=== PATIENT | female | born 1980 | race African-American/Black ===

== ENCOUNTER → 2017-04-08 16:12 | Outpatient (CLI) | payer MEDICARE, MEDICAID, SELFPAY | PROVIDERS: Visit Provider Nurse Practitioner Women's Health | DX: Z12.4 Encounter for screening for malignant neoplasm of cervix (principal) ==

== ENCOUNTER → 2017-05-02 12:30 | Outpatient (CLI) | payer MEDICARE, MEDICAID, SELFPAY ==
--- NOTE | 2017-05-02 12:32 | US_ITS ---
STUDY: ULTRASOUND OF THE FEMALE PELVIS REASON FOR EXAM: Female, 36 years old. Vaginal prolapse LMP: Unknown. TECHNIQUE: Transverse and longitudinal imaging of the pelvis was obtained transabdominally and transvaginally using real-time ultrasound. COMPARISON: None. FINDINGS: The uterus is retroverted and is in a midline position. The uterus measures 5.7 x 2.8 x 3.2 cm. Normal uterine cervix. The endometrium measures 5.2 mm in thickness, and is hyperechoic. There is no demonstrated endometrial mass. There is no demonstrated myometrial mass. I.U.D. - The patient does not have an I.U.D. The right ovary is visualized. The right ovary measures 2.3 x 1.1 x 1.2 cm. There is no right ovarian cyst or ovarian mass. There is no visualized right adnexal mass or complex lesion. There is normal arterial and normal venous vascularity. The left ovary is not visualized. There is no fluid in the cul-de-sac. No significant abnormalities are seen on limited visualization of the urinary bladder. US/Transvaginal Non- IMPRESSION: The uterus is retroverted. No abnormalities are seen in the uterus on ultrasound. The right ovary is normal in appearance. The left ovary was not visualized. Electronically Signed: Rani Sheppard MD at 14:41 EST Tel Direct: [phone], Service support ,
--- NOTE | 2017-05-02 12:32 | US_ITS ---
STUDY: ULTRASOUND OF THE FEMALE PELVIS REASON FOR EXAM: Female, 36 years old. Vaginal prolapse LMP: Unknown. TECHNIQUE: Transverse and longitudinal imaging of the pelvis was obtained transabdominally and transvaginally using real-time ultrasound. COMPARISON: None. FINDINGS: The uterus is retroverted and is in a midline position. The uterus measures 5.7 x 2.8 x 3.2 cm. Normal uterine cervix. The endometrium measures 5.2 mm in thickness, and is hyperechoic. There is no demonstrated endometrial mass. There is no demonstrated myometrial mass. I.U.D. - The patient does not have an I.U.D. The right ovary is visualized. The right ovary measures 2.3 x 1.1 x 1.2 cm. There is no right ovarian cyst or ovarian mass. There is no visualized right adnexal mass or complex lesion. There is normal arterial and normal venous vascularity. The left ovary is not visualized. There is no fluid in the cul-de-sac. No significant abnormalities are seen on limited visualization of the urinary bladder. US/Pelvic (Non ) IMPRESSION: The uterus is retroverted. No abnormalities are seen in the uterus on ultrasound. The right ovary is normal in appearance. The left ovary was not visualized. Electronically Signed: Rani Sheppard MD at 14:41 EST Tel Direct: [phone], Service support ,
== END ==
PROVIDERS: Visit Provider Nurse Practitioner Women's Health
DX: N81.2 Incomplete uterovaginal prolapse (principal)
CPT/HCPCS: 76830; 76856

== ENCOUNTER 2019-05-10 18:56 | Emergency (ER) | payer MEDICARE, MEDICAID, SELFPAY ==
[2019-04-21 16:16] VITALS: BMI 57.6
[2019-05-10 18:57] VITALS: BP 160/97; PULSE 67; RESP 15; TEMP 37; O2SAT 99; BMI 48.2
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
[2019-05-10] MEDS: Acetaminophen 325 MG Tablet 650 MG PO (19:35)
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
== END 2019-05-10 21:17 | disposition home or self-care (01) ==
PROVIDERS: Emergency Provider Emergency Medicine; PCP Internal Medicine
DX: S00.83XA Contusion of other part of head, initial encounter (principal); S40.022A Contusion of left upper arm, initial encounter; S40.021A Contusion of right upper arm, initial encounter; Y04.0XXA Assault by unarmed brawl or fight, initial encounter; Y93.89 Activity, other specified; Y92.199 Unspecified place in other specified residential institution as the place of occurrence of the external cause; J44.9 Chronic obstructive pulmonary disease, unspecified; E03.9 Hypothyroidism, unspecified; Q87.11 Prader-Willi syndrome; E66.01 Morbid (severe) obesity due to excess calories; Z68.41 Body mass index [BMI] 40.0-44.9, adult
CPT/HCPCS: 70110; 99283; A4216

== ENCOUNTER 2020-08-08 11:41 | Emergency (ER) | payer MEDICARE, MEDICAID, SELFPAY ==
[2020-08-08 11:42] VITALS: BP 163/82; PULSE 62; RESP 18; TEMP 36.6; O2SAT 99; BMI 49.6
--- NOTE | 2020-08-08 12:01 | RAD_ITS ---
STUDY: X-RAY - PELVIS REASON FOR EXAM: Female, 40 years old. pain TECHNIQUE: One view of the pelvis was obtained. COMPARISON: None. FINDINGS: There is a non-specific bowel gas pattern. Normal visualized soft tissue structures. Normal bilateral iliac wings, sacroiliac joints and visualized sacrum. Normal visualized bilateral superior and inferior pubic rami. Normal pubic symphysis. Normal ischial tuberosities. Normal visualized right femoral head. Normal right acetabulum. Normal right hip joint. Normal visualized left femoral head. Normal left acetabulum. Normal left hip joint. RAD/Pelvis 1 or 2 Views IMPRESSION: Normal x-ray examination of the pelvis. Electronically Signed: Juan Pablo Wallace MD at 13:15 EDT , Service support ,
--- NOTE | 2020-08-08 12:01 | VDLE_ITS ---
Reason For Study: pain RIGHT CFV is compressible, spontaneous, phasic, competent and demonstrates normal augmentation. FV is compressible, spontaneous, phasic, competent and demonstrates normal augmentation. POP V is compressible, spontaneous, phasic, competent and demonstrates normal augmentation. T/P Trunk is compressible. PTV is compressible. RT PerV is compressible. GSV is dilated and noncompressible. No evtension into the CFV. SVT is up to the S-F Juction. SVT appears to be loosley attached. Varicose veins in the thigh are dilated and noncompressible. Procedure This is a venous duplex using B-mode, color flow and spectral Doppler. Exam performed portable in ED. The exam was abbreviated due to the COVID 19 protocol. The exam was diagnostic. A preliminary report was called and/or faxed to Dr. Rossi. VL/Venous Duplex US, Unilateral Interpretation Summary There is no evidence of right lower extremity deep vein thrombosis. Superficial thrombophlebitis right great saphenous vein with visible thrombus loosely attached close to the saphenofemoral junction. Superficial thrombophlebitis involving varicosities of the right thigh. COVID-19 protocol utilized Ordering Physician: Tori Rossi Performed By: Lauro Roberts RVAl
--- NOTE | 2020-08-08 12:01 | ED.VIS.LOWEX ---
HPI History of Present Illness Chief Complaint: Lower Extremity Injury Detail of Chief Complaint: Pain to right upper leg that she noticed this morning Informant: patient Narrative Narrative: Patient denies any injury to her right leg. She woke up with pain in it this morning. She denies any chest pain or shortness of breath. She denies any trauma. She has been bearing weight on it. No history of PE or DVT. Staff from [facility] state that they are concerned about a blood clot. [facility] Medical History (Updated 08/08/20 @ 13:[address] Tori Rossi, DO) Prader-Willi syndrome Home Medications ammonium lactate 1 applicatio TOPICAL DAILY 10/26/13 [History Last Taken 09/29/14] calcium carbonate-vitamin D3 1 ea PO BID 10/26/13 [History Last Taken 09/29/14] multivitamin,da-lkwa-ohzefzrh 1 tab PO DAILY 10/26/13 [History Last Taken 09/29/14] omega-3 fatty acids-fish oil 1 ea PO DAILY 10/26/13 [History Last Taken 09/29/14] budesonide-formoterol 2 puff INHALATION BID 09/30/14 [History Last Taken 09/29/14] epinephrine 0.3 mg IM X1 PRN 06/01/16 [History Last Taken Unknown] nystatin 1 applic TOPICAL BID 06/01/16 [History Last Taken Unknown] clotrimazole 1 % topical cream 1 applic TOPICAL BID 04/08/17 [History Last Taken Unknown] fluticasone propionate 50 mcg/actuation nasal spray,suspension 50 mcg INTRANASAL ONCE 04/08/17 [History Last Taken Unknown] levothyroxine 50 mcg tablet 100 mcg PO DAILY tab 04/21/19 [History Last Taken Unknown] acetaminophen 500 - 1,000 mg PO Q6H PRN PRN #30 tab 05/10/19 [Rx Last Taken Unknown] desogestrel 0.15 mg-ethinyl estradiol 0.03 mg tablet 1 tab PO QDAY #84 tab 05/11/20 [Rx Last Taken Unknown] apixaban [Eliquis DVT-PE Treat 30D Start] 5 mg PO BID #74 tab 08/08/20 [Rx Last Taken Unknown] Allergy/AdvReac Type Severity Reaction Status Date / Time phenytoin sodium Allergy Unknown Verified 08/08/20 11:47 [From Dilantin] phenytoin sodium extended Allergy Unknown Verified 08/08/20 11:47 [From Dilantin] venom-honey bee Allergy Unknown Verified 08/08/20 11:47 [bee venom (honey bee)] Family History Grandmother Diabetes Social History (Updated 05/11/20 @ 15:08 by Cecilia Fontenot SENIOR AUDIT MANAGER, SENIOR AUDIT MANAGER-C) Smoking Status: Never smoker alcohol intake: never substance use type: does not use caffeine: Yes frequency: daily seatbelt use: always do you feel safe at home: Yes additional social history: Louis Gimenez ROS ROS ED Constitutional Constitutional ED: Reports systems reviewed and no addt'l complaints, except as documented; Denies body ache(s), change in weight or chills Eyes Eyes: Denies acute decrease in peripheral vision, change in vision, double vision or loss of vision ENT ENT ED: Reports none; Denies ear pain, lip swelling, loss taste/smell, neck pain, otalgia or sore throat Cardiovascular Cardiovascular: Reports none; Denies abdominal pain, chest pain with activity, leg edema, lightheadedness, palpitations, rapid heart rate or syncope Respiratory/Chest Respiratory/Chest: Reports none; Denies change in mental status, dry cough, dyspnea, hemoptysis, shortness of breath at rest or shortness of breath with exertion Gastrointestinal Gastrointestinal: Reports none; Denies abdominal pain, change in stool character, diarrhea, hematemesis, hematochezia, melena, rectal bleeding or vomiting Genitourinary Genitourinary ED: Reports none; Denies abdominal discomfort, anuria, dysuria, genital pain or polyuria Musculoskeletal Musculoskeletal: Reports none and other Details: Right leg pain ; Denies arthralgias, back pain, difficulty walking, extremity pain, muscle weakness or myalgias Integumentary Reports none; Denies abscess or rash Neurologic Neurologic: Reports none; Denies abnormal gait, confusion, focal weakness, frequent falls, headache(s), loss of vision, numbness, paresthesias, radicular pain, vertigo or weakness Psychiatric Psychiatric: Reports systems reviewed and no addt'l complaints, except as documented and none; Denies behavioral changes, confusion, difficulty concentrating, hallucinations, suicidal ideation, tactile hallucinations or visual hallucinations Endocrine Endocrinology: Denies none, cold intolerance, excessive sweating, fatigue or heat intolerance Hematologic/Lymphatic Hematologic/Lymphatic: Reports none; Denies anemia, easy bleeding or easy bruising Allergic/Immunologic Allergic/Immunologic ED: Denies as per HPI, none, lip swelling, mouth swelling, throat swelling, tongue swelling or hives EXAM Physical Exam Const Vital Signs: 08/08/20 11:42 Temperature 97.9 F Temperature Source Temporal Pulse Rate 62 Respiratory Rate 18 Blood Pressure 163/82 H Blood Pressure Mean 109 Pulse Ox 99 Oxygen Delivery Method Room Air Positive well nourished and well developed General Appearance ED: well developed and NAD HEENT Reports TM's clear and moist mucous membranes normocephalic and atraumatic; Negative for trauma or tenderness Tympanic Membrane ED: Yes TM's clear Eyes PERRL and EOMs intact bilaterally General Eye ED: Negative for pale conjunctiva or scleral icterus Neck no lymphadenopathy, supple and no JVD General: Negative for tenderness Chest Wall inspection of chest normal and palpation of chest normal Chest: Negative for tenderness Resp normal respiratory effort and clear to auscultation bilaterally Effort and Inspection: Negative for respiratory distress or pain with movement Auscultation: Negative for rhonchi, wheezes or diminished lung sounds Cardio regular rate, regular rhythm, S1 normal heart sound, S2 normal heart sound and no murmurs Peripheral Pulses: pulses 2+ throughout GI normal to inspection, nondistended, normoactive bowel sounds, soft to palpation, non-tender, non-distended and no masses Back/Spine no CVA tenderness and no thoracic nor lumbar tenderness Extremity normal to inspection Extremity Narrative: Right leg-patient has tenderness palpation right medial proximal thigh near the inguinal ligament. No masses palpated. There is no erythema or warmth or abscesses noted. Neurovascularly intact. General Extremety ED: Negative for edema General Extremity: Negative for edema Neuro oriented x3, CN's II-XII intact bilaterally, no sensory deficits noted and gait normal Sensorium / Orientation: awake, alert, oriented to person, oriented to place and oriented to time Motor Exam: strength 5/5 throughout and strength abnormal Psych mental status grossly normal Skin no rashes or lesions noted and no wounds MDM MDM MDM Narrative Medical decision making narrative: Patient noted to have superficial clot that is dangling and getting ready to enter the deep venous system of the femoral vein. I discussed case with Dr. Richey who is vascular surgeon on-call. Also discussed case with patient's primary care physician Dr. Pérez. It was recommended that patient be started on anticoagulation for 6 to 8 weeks and follow-up with vascular surgeon. Patient was started on Eliquis. Discharge Plan Triage Chief Complaint: Lower Extremity Injury ED Provider: Tori Rossi Dx/Rx/DC Orders Clinical Impression: Superficial thrombophlebitis Prescriptions: New Eliquis DVT-PE Treat 30D Start 5 mg (74 tabs) tablets,dose pack 5 mg PO BID Qty: 74 RF: 0 No Action fluticasone propionate 50 mcg/actuation spray,suspension 50 mcg INTRANASAL ONCE RF: 0 clotrimazole 1 % cream 1 applic TOPICAL BID RF: 0 desogestrel-ethinyl estradiol [Apri] 0.15-0.03 mg tablet 1 tab PO QDAY Qty: 84 RF: 4 ammonium lactate 140 GM cream 1 applicatio TOPICAL DAILY RF: 0 multivitamin,jf-xccy-mkrtiyli 1 TABLET tablet 1 tab PO DAILY RF: 0 omega-3 fatty acids-fish oil 1 EACH capsule 1 ea PO DAILY RF: 0 calcium carbonate-vitamin D3 1 EACH tablet 1 ea PO BID RF: 0 levothyroxine 50 mcg tablet 100 mcg PO DAILY RF: 0 budesonide-formoterol 1 INHALER inhaler 2 puff INHALATION BID RF: 0 nystatin 1 APPLIC bottle 1 applic TOPICAL BID RF: 0 epinephrine 0.3 MG syringe 0.3 mg IM X1 PRN (Reason: Anaphylaxis) RF: 0 acetaminophen 500 MG tablet 500 - 1,000 mg PO Q6H PRN PRN (Reason: Pain Score 4-10/10) Qty: 30 RF: 0 Primary Care Provider: Marilee Pérez Referrals: Daniel Richey MD [STAFF PHYSICIAN] - (see Dr. Winkler in 6-8 weeks ) Marilee Pérez MD [Primary Care Provider] - Disposition Disposition: Home, self care
[2020-08-08 13:50] VITALS: BP 129/74; PULSE 64; RESP 15; O2SAT 96
[2020-08-08] MEDS: APIXABAN 5 MG TABLET 10 MG PO (13:50)
== END 2020-08-08 13:58 | disposition home or self-care (01) ==
PROVIDERS: Emergency Provider Emergency Medicine; PCP Internal Medicine
DX: I80.01 Phlebitis and thrombophlebitis of superficial vessels of right lower extremity (principal)
CPT/HCPCS: 36415; 72170; 93971; 99284

== ENCOUNTER → 2020-08-21 13:57 | Outpatient (CLI) | payer MEDICARE, MEDICAID, SELFPAY ==
[2020-08-08 11:42] VITALS: BMI 49.6
--- NOTE | 2020-08-21 14:01 | ECHOD_ITS ---
Reason For Study: Prader Willi Syndrome Procedure This was a 2D Doppler, Color Flow transthoracic echocardiogram. Exam performed in department. Left Ventricle Normal LV size. Left ventricular systolic function is normal. The estimated ejection fraction is 65 %. Stage 1 diastolic dysfunction. No regional wall motion abnormalities noted. Right Ventricle Normal RV size. Normal systolic function. Atria Normal left atrium. Normal right atrium. Mitral Valve Normal mitral valve. Tricuspid Valve Normal tricuspid valve. Mild (1+) tricuspid valve insufficiency. Pulmonary artery systolic pressure is 54 mmHg. Aortic Valve Normal aortic valve. Trisinus/trileaflet aortic valve. Pulmonic Valve Normal pulmonic valve. Great Vessels Normal aortic root. The pulmonary artery is normal size. Inferior vena cava collapse with respiration. Pericardium/Pleural No pericardial effusion. MMode/2D Measurements & Calculations LVIDd: 5.1 cm IVSd: 0.77 cm Ao root diam: 2.0 cm LVIDs: 3.2 cm LVPWd: 0.77 cm RVDd: 4.3 cm FS: 37.4 % LAV(MOD-bp): 48.2 ml LVAd ap4: 27.8 cm2 SV(MOD-sp4): 50.3 ml LAV(MOD-bp) Indexed: 21.0 ml/m2 LVLd ap4: 7.5 cm LAV(MOD-sp2): 50.6 ml EDV(MOD-sp4): 87.0 ml LAV(MOD-sp4): 43.8 ml EDV(sp4-el): 88.0 ml LVAs ap4: 16.3 cm2 LVLs ap4: 6.2 cm ESV(MOD-sp4): 36.7 ml ESV(sp4-el): 36.1 ml EF(MOD-sp4): 57.8 % EF(sp4-el): 59.0 % SV(sp4-el): 51.9 ml LA A4 area: 17.2 cm2 LA dimension(2D): 3.1 cm RA A4 area: 16.8 cm2 Doppler Measurements & Calculations MV E max abdoul: 66.9 cm/sec Lat Peak E' Abdoul: 12.8 cm/sec Med Peak E' Abdoul: 8.9 cm/sec MV A max abdoul: 77.6 cm/sec E/E' lat: 5.2 E/E' med: 7.5 MV E/A: 0.86 LV V1 max: 133.2 cm/sec PA V2 max: 120.0 cm/sec TR max abdoul: 351.2 cm/sec LV V1 max P.1 mmHg TR max P.3 mmHg ECHO/Echo Complete Interpretation Summary Normal LV size. Left ventricular systolic function is normal. The estimated ejection fraction is 65 %. Stage 1 diastolic dysfunction. Pulmonary artery systolic pressure is 54 mmHg. Ordering Physician: JOE HAMEED Referring Physician: Marilee Pérez Performed By: Aaliyah Dickinson, MIYA, RVT
== END ==
PROVIDERS: PCP Internal Medicine
DX: R01.1 Cardiac murmur, unspecified (principal); G47.33 Obstructive sleep apnea (adult) (pediatric); Z87.11 Personal history of peptic ulcer disease; E87.70 Fluid overload, unspecified; E03.9 Hypothyroidism, unspecified; E66.01 Morbid (severe) obesity due to excess calories
CPT/HCPCS: 93306

== ENCOUNTER 2021-05-22 16:40 | Outpatient (CLI) | payer MEDICARE, MEDICAID, SELFPAY ==
[2021-05-29 13:59] LABS: HPV APTIMA, High Risk Negative (Negative)
== END 2021-05-22 23:59 | disposition home or self-care (01) ==
LOC: LABSPEC 16:43
PROVIDERS: PCP Internal Medicine; Visit Provider Nurse Practitioner Women's Health
DX: Z12.4 Encounter for screening for malignant neoplasm of cervix (principal)
CPT/HCPCS: 87624; 88175; G0145

== ENCOUNTER → 2022-06-18 | Outpatient (CLI) | payer MEDICARE, MEDICAID, SELFPAY ==
--- NOTE | 2022-06-18 12:18 | BI_ITS ---
MAMMOGRAPHY - BILATERAL SCREENING 3-D TOMOSYNTHESIS REASON FOR EXAM: Female, 41 years old. Routine screening PERTINENT HISTORY: No significant family history. TECHNIQUE: 2-D mammograms and 3-D Tomosynthesis of the breast (s) were performed. CAD was performed. COMPARISON: None. Baseline examination. FINDINGS: The breast composition is almost entirely fat. Scattered benign calcifications are seen. No dense spiculated masses or suspicious microcalcifications are identified. No architectural distortion is identified. There is no skin thickening or retraction. BI/SCRN MAMM (CAD)W/ELIZABETH BILAT IMPRESSION: No mammographic signs of malignancy. Routine yearly mammograms recommended. ASSESSMENT CATEGORY: BIRADS Category 1: Negative. A letter regarding these results will be sent to the patient by the facility within 30 days. FOLLOW UP RECOMMENDATION: Yearly follow up mammogram recommended. (A) Approximately 10% of breast cancers are not detected by mammography. A normal mammogram should not delay biopsy of a clinically suspicious abnormality. Electronically Signed: Juan Pablo Wallace MD at 13:48 EDT ,
== END | disposition home or self-care (01) ==
PROVIDERS: PCP Internal Medicine; Referring Provider Nurse Practitioner Women's Health; Visit Provider Nurse Practitioner Women's Health
DX: Z12.31 Encounter for screening mammogram for malignant neoplasm of breast (principal)
CPT/HCPCS: 77063; 77067

== ENCOUNTER → 2023-07-04 | Outpatient (CLI) | payer MEDICARE, MEDICAID, SELFPAY ==
--- NOTE | 2023-07-04 10:19 | BI_ITS ---
MAMMOGRAPHY - BILATERAL SCREENING REASON FOR EXAM: Female, 43 years old. Routine annual screening examination. PERTINENT HISTORY: Non-contributory. TECHNIQUE: Digital bilateral breast elizabeth (3D mammographic acquisition) in the CC and MLO projections. 2-D mediolateral oblique (MLO) and craniocaudad (CC) views of both breasts were obtained. CAD: Full Field Digital Mammography with Computer Added Detection was performed. COMPARISON: Comparison is made with prior study June 18, 2022. FINDINGS: Breast Composition: The breasts are almost entirely fatty. There are no dominant masses or suspicious calcifications. Stable small benign-appearing bilateral axillary lymph nodes. Stable 2 mm well-defined nodule in the lateral retroareolar region of the left breast suggestive of either a small cyst or small lymph node. Stable 3 mm well-defined nodule in the upper anterior lateral aspect of the right breast. No other significant abnormalities are identified. There has been no significant change since the prior study. BI/SCRN MAMM (CAD)W/ELIZABETH BILAT IMPRESSION: Stable bilateral screening mammogram. Yearly follow-up mammogram recommended. (A) ASSESSMENT CATEGORY: BIRADS Category 2: Benign. A letter regarding these results will be sent to the patient by the facility within 30 days. Approximately 10% of breast cancers are not detected by mammography. A normal mammogram should not delay biopsy of a clinically suspicious abnormality. [id number] Electronically Signed: Daniel Boykin MD at 11:57 EDT ,
== END | disposition home or self-care (01) ==
LOC: OPBI 10:17
PROVIDERS: PCP Internal Medicine; Referring Provider Nurse Practitioner Women's Health; Visit Provider Nurse Practitioner Women's Health
DX: Z12.31 Encounter for screening mammogram for malignant neoplasm of breast (principal)
CPT/HCPCS: 77063; 77067

== ENCOUNTER → 2023-10-25 | Outpatient (CLI) | payer MEDICARE, MEDICAID, SELFPAY ==
--- NOTE | 2023-10-25 10:25 | US_ITS ---
INDICATION: on OCP with irregular bleeding EXAMINATION: Ultrasound US Pelvis Non OB Limited With Transvaginal Imaging TECHNIQUE: Transabdominal pelvic ultrasound was performed. Grayscale, spectral waveform, and color flow Doppler evaluation of the adnexa. COMPARISON: FINDINGS: UTERUS: Retroverted. The uterus measures 5.1 x 2.5 x 2.6 cm. There is no uterine mass. The endometrial stripe measures 3.4 mm in AP diameter which is within normal limits. RIGHT OVARY: Nonvisualization. LEFT OVARY: Nonvisualization. FREE FLUID: None. The urinary bladder is distended with a volume of 422 cc. US/Pelvic w/ Transvaginal IMPRESSION: Retroverted uterus. Nonvisualization of the ovaries. Electronically Signed: Jose Roche DO at 20:12 EDT ,
== END | disposition home or self-care (01) ==
LOC: US 10:23
PROVIDERS: PCP Internal Medicine; Referring Provider Nurse Practitioner Family; Visit Provider Nurse Practitioner Family
DX: N92.6 Irregular menstruation, unspecified (principal)
CPT/HCPCS: 76830; 76856

== ENCOUNTER 2023-10-30 19:30 | Emergency (ER) | payer MEDICARE, MEDICAID, SELFPAY ==
[2023-10-30 19:31] VITALS: BP 142/99; PULSE 60; RESP 16; TEMP 36.5; O2SAT 95; BMI 49.5
[2023-10-30 21:31] VITALS: RESP 18
--- NOTE | 2023-10-30 22:46 | EDS_ITS ---
HPI History of Present Illness Chief Complaint: Cellulitis Informant: patient and other (halfway staff) Narrative Narrative: 43-year-old female history of chronic lymphedema presenting to the emergency room with increased swelling of the lower extremities and redness. This was noted this evening at softball practice. She does take Lasix every other day 20 mg and is on supplemental potassium. No reported fevers. No significant shortness of breath or cough. No history of CHF. It was noted that during the softball game she was complaining of pain in the lower extremities right greater than left. They noticed that the legs were more swollen than they have been and that there is redness around both ankles. [facility] Medical History (Updated 10/30/23 @ 23:[address] Yeyo Lowery, DO) Prader-Willi syndrome Home Medications ?Medication ?Instructions ?Recorded ?Last Taken ?Type ammonium lactate 12 % topical cream 1 applicatio topical DAILY 10/26/13 09/29/14 History calcium carbonate 600 mg-vitamin 1 ea PO BID 10/26/13 09/29/14 History D3 10 mcg (400 unit) tablet multivitamin,[id number] 27 1 tab PO DAILY 10/26/13 09/29/14 History mg-0.4 mg tablet omega-3 fatty acids-fish oil 300 1 ea PO DAILY 10/26/13 09/29/14 History mg-500 mg capsule budesonide-formoterol HFA 160 2 puff inhalation BID 09/30/14 09/29/14 History mcg-4.5 mcg/actuation aerosol inhaler epinephrine 0.3 mg/0.3 mL 0.3 mg IM X1 PRN Anaphylaxis 06/01/16 Unknown History injection, auto-injector nystatin 100,000 unit/gram topical 1 applic topical BID 06/01/16 Unknown History powder clotrimazole 1 % topical cream 1 applic topical BID 04/08/17 Unknown History fluticasone propionate 50 50 mcg intranasal ONCE 04/08/17 Unknown History mcg/actuation nasal spray,suspension levothyroxine 50 mcg tablet 100 mcg PO DAILY 04/21/19 Unknown History acetaminophen 500 mg tablet 500 - 1,000 mg (1 - 2 x 500 mg) PO 05/10/19 Unknown Rx Q6H PRN PRN Pain Score 4-10/10 #30 tabs albuterol sulfate 90 mcg/actuation 2 puff inhalation Q6H PRN 05/22/21 Unknown History aerosol inhaler furosemide 20 mg tablet 20 mg PO Q OTHER DAY 05/22/21 Unknown History potassium chloride 10 mEq 10 meq PO .qod 05/22/21 Unknown History capsule,extended release norethindrone (contraceptive) 0.35 0.35 mg PO QDAY #84 tabs 06/02/23 Unknown Rx mg tablet (Arianna) cephalexin 500 mg capsule 500 mg PO Q6 #28 CAPSULES 10/31/23 Unknown Rx furosemide 40 mg tablet (Lasix) 40 mg PO DAILY 5 days #5 tabs 10/31/23 Unknown Rx Allergy/AdvReac Type Severity Reaction Status Date / Time insect venom (insect bites) Allergy Intermediate Itching Verified 10/30/23 19:31 phenytoin sodium (From Allergy Unknown Verified 10/30/23 19:31 Dilantin) phenytoin sodium extended Allergy Unknown Verified 10/30/23 19:31 (From Dilantin) venom-honey bee (bee venom Allergy Unknown Verified 10/30/23 19:31 (honey bee)) Family History Grandmother Diabetes Social History Smoking Status: Never smoker alcohol intake: never substance use type: does not use caffeine: Yes frequency: daily seatbelt use: always do you feel safe at home: Yes additional social history: Louis Gimenez [facility] ED Constitutional Constitutional ED: Denies chills, fever(s) or weight loss Eyes Eyes: Denies change in vision or diplopia ENT ENT ED: Denies ear pain, rhinorrhea or sore throat Cardiovascular Cardiovascular: Denies chest pain, orthopnea, palpitations or racing heartbeat Respiratory/Chest Respiratory/Chest: Denies cough, dyspnea or orthopnea Gastrointestinal Gastrointestinal: Denies abdominal pain, diarrhea, nausea or vomiting Genitourinary Genitourinary ED: Denies dysuria, hematuria or urinary frequency Musculoskeletal Musculoskeletal: Reports other Details: See history of present illness ; Denies arthralgias or myalgias Integumentary Reports rash; Denies abscess Neurologic Neurologic: Denies headache(s) or weakness Psychiatric Psychiatric: Denies anxiety, depression, suicidal ideation or suicidal thoughts Endocrine Endocrinology: Denies polydipsia, polyphagia or polyuria Allergic/Immunologic Allergic/Immunologic ED: Denies mouth swelling, tongue swelling or urticaria EXAM Physical Exam Const Vital Signs: 10/30/23 19:31 10/30/23 21:31 10/30/23 23:00 Temperature 97.7 F L Temperature Source Temporal Pulse Rate 60 Respiratory Rate 16 18 18 Blood Pressure 142/99 H Blood Pressure Mean 113 Pulse Ox 95 10/31/23 00:07 Temperature 98 F Temperature Source Pulse Rate 66 Respiratory Rate 14 Blood Pressure 137/107 H Blood Pressure Mean 117 Pulse Ox 99 Positive well nourished and well developed General Appearance ED: well developed HEENT Reports normocephalic, head/scalp atraumatic and moist mucous membranes Eyes PERRL and EOMs intact bilaterally Neck no lymphadenopathy, supple and no JVD Resp normal respiratory effort and clear to auscultation bilaterally Cardio regular rate, regular rhythm and no murmurs GI normal to inspection, nondistended, normoactive bowel sounds and non-tender Palpation: soft Back/Spine no CVA tenderness and normal ROM Extremity Extremity Narrative: Bilateral lower extremity swelling consistent with lymphedema. There is a mild amount of erythema over the medial aspects of the bilateral ankle. Slight amount of erythema over the proximal medial calf. There is no palpable cords. The calves are soft and nontender. General Extremety ED: Yes edema General Extremity: edema bilateral lower extremity Details: moderate Neuro CN's II-XII intact bilaterally Sensorium / Orientation: alert Motor Exam: strength 5/5 throughout Psych mental status grossly normal Mood & Affect: Negative for depressed or tearful Skin no rashes or lesions noted and no wounds MDM MDM MDM Narrative Medical decision making narrative: Differential diagnosis includes but not limited to lymphedema congestive heart failure renal dysfunction electrolyte abnormalities such as hypokalemia, DVT. White blood cell count is nonspecifically elevated 13.5 with normal differential. BMP shows a normal creatinine 0.60 potassium 4.5. Glucose is 80. Patient will have her Lasix increased over the next 5 days to 40 mg daily. I discussed with caregivers that the redness may in fact just be due to the increased edema or may be cellulitis. I will write for her to have Keflex in addition to the Lasix. Patient has a history of DVT. Duplex ultrasound is not readily available for me at this time. However this is bilateral the calves are nontender there is no palpable cords I think DVT is less likely. I do recommend PCP follow-up 3 to 5 days. History & Record Review Discussion w/independent historian: Patient and Other (halfway staff) Lab Data Attestation: I reviewed the patient's lab results. Labs: Laboratory Results - last 24 hr 10/30/23 23:00 WBC 13.5 H RBC 4.52 Hgb 14.1 Hct 45.4 MCV 100.4 H MCH 31.2 MCHC 31.1 L RDW Std Deviation 47.6 H RDW Coeff of Denzel 12.8 Plt Count 155 MPV 10.8 Immature Gran % (Auto) 0.300 Neut % (Auto) 60.2 Lymph % (Auto) 28.9 [place] % (Auto) 8.0 Eos % (Auto) 1.9 Baso % (Auto) 0.7 Absolute Neuts (auto) 8.1 H Absolute Lymphs (auto) 3.89 Nucleated RBC % 0 Sodium 139 Potassium 4.5 Chloride 105 Carbon Dioxide 24.0 Anion Gap 10 BUN 13 Creatinine 0.60 Estim Creat Clear Calc 142.84 Est GFR (MDRD) Af Amer 140 Est GFR (MDRD) Non-Af 116 BUN/Creatinine Ratio 21.5 H Glucose 80 Calcium 9.3 Discharge Plan Triage Chief Complaint: Cellulitis ED Provider: Yeyo Lowery Dx/Rx/DC Orders Clinical Impression: Lymphedema, Lower extremity cellulitis Instructions: ED Cellulitis, ED Lymphedema Prescriptions: New cephalexin 500 mg capsule 500 mg PO Q6 Qty: 28 0RF furosemide [Lasix] 40 mg tablet 40 mg PO DAILY 5 Days Qty: 5 0RF No Action fluticasone propionate 50 mcg/actuation spray,suspension 50 mcg INTRANASAL ONCE clotrimazole 1 % cream 1 applic TOPICAL BID furosemide 20 mg tablet 20 mg PO Q OTHER DAY potassium chloride 10 mEq capsule, extended release 10 meq PO .qod albuterol sulfate 90 mcg/actuation HFA aerosol inhaler 2 puff inhalation Q6H PRN norethindrone (contraceptive) [Arianna] 0.35 mg tablet 0.35 mg PO QDAY Qty: 84 4RF ammonium lactate 140 GM cream 1 applicatio TOPICAL DAILY Patient Comments: skin health multivitamin,[id number]-[id number] 1 TABLET tablet 1 tab PO DAILY Patient Comments: supplement omega-3 fatty acids-fish oil 1 EACH capsule 1 ea PO DAILY Patient Comments: supplement calcium carbonate-vitamin D3 1 EACH tablet 1 ea PO BID Patient Comments: supplement levothyroxine 50 mcg tablet 100 mcg PO DAILY Patient Comments: thyroid budesonide-formoterol 1 INHALER inhaler 2 puff INHALATION BID Patient Comments: copd nystatin 1 APPLIC bottle 1 applic TOPICAL BID epinephrine 0.3 MG syringe 0.3 mg IM X1 PRN (Reason: Anaphylaxis) acetaminophen 500 MG tablet 500 - 1,000 mg PO Q6H PRN PRN (Reason: Pain Score 4-10/10) Qty: 30 0RF Primary Care Provider: Marilee Pérez Referrals: Marilee Pérez MD [Primary Care Provider] - 3-5 Days Activity Restrictions/Additional Instructions: You are being placed on an antibiotic that is given 4 times a day over the next 7 days. We are increasing your Lasix to 40 mg once a day for the next 5 days. Please monitor salt intake. Please follow-up with primary care in 3 to 5 days. Compression stockings if able. Print Language: Norwegian Disposition Disposition: Home, Self Care Discharge Date/Time: 10/31/23 00:07
[2023-10-30 23:00] VITALS: RESP 18
[2023-10-30 23:08] LABS: Absolute Lymphocyte Count 3.89 X10^3/uL (0.83-4.51); Absolute Neutrophil Count 8.1 X10^3/uL (2.0-7.7); Basophil# 0.09 X10^3/uL; Basophil% 0.7 % (0-1); Eosinophil# 0.25 X10^3/uL; Eosinophils% 1.9 % (0-5); Hematocrit 45.4 % (37-47); Hemoglobin 14.1 g/dL (12.0-15.0); Lymphocyte # 3.89 X10^3/ul (0.83-4.51); Lymphocyte % 28.9 % (19-41); Mean Corp Hgb Conc 31.1 g/dL (32-36); Mean Corpuscular Hgb 31.2 pg (27.0-32.0); Mean Corpuscular Volume 100.4 fL (81-99); Mean Platelet Vol. 10.8 fl (6.2-12.0); Monocyte# 1.08 X10^3/uL; NRBC Flagged by Analyzer 0 % (0-5); Neutrophil # 8.13 X10^3/uL (2.7-7.7); Neutrophil % 60.2 % (47-70); Platelet Count 155 K/mm3 (150-450); RBC Distribution Width CV 12.8 % (11.6-14.6); RBC Distribution Width SD 47.6 fl (35.1-43.9); Red Blood Count 4.52 M/mm3 (4.2-5.4); White Blood Count 13.5 K/mm3 (4.4-11.0)
[2023-10-30 23:27] LABS: Anion Gap 10 (5-15); BUN 13 mg/dL (7-18); BUN/Creat Ratio 21.5 RATIO (10-20); Calcium,Total 9.3 mg/dL (8.5-10.1); Chloride 105 mmol/L (98-107); EST Glomerular Filtration Rate 116 mL/min (>60); Est Glom Filt Rate - Afr Amer 140 mL/min (>60); Estimated Creatinine Clearance 142.84 ml/min; Glucose 80 mg/dL (74-106); Potassium 4.5 mmol/L (3.5-5.1); Sodium Level 139 mmol/L (136-145)
[2023-10-31] MEDS: Cephalexin 250 MG Capsule 500 MG PO (00:02)
[2023-10-31 00:07] VITALS: BP 137/107; PULSE 66; RESP 14; TEMP 36.6; O2SAT 99
== END 2023-10-31 00:07 | disposition home or self-care (01) ==
PROVIDERS: Emergency Provider Emergency Medicine; PCP Internal Medicine; Visit Provider Emergency Medicine
DX: I89.0 Lymphedema, not elsewhere classified (principal); L03.115 Cellulitis of right lower limb; L03.116 Cellulitis of left lower limb; Z79.899 Other long term (current) drug therapy; Z86.718 Personal history of other venous thrombosis and embolism
CPT/HCPCS: 80048; 85025; 99283; J7030; A4216

== ENCOUNTER 2023-12-23 13:34 | Emergency (ER) | payer MEDICARE, MEDICAID, SELFPAY ==
[2023-12-23 13:36] VITALS: BP 156/115; PULSE 79; RESP 16; TEMP 36.8; O2SAT 95
[2023-12-23 13:40] VITALS: BMI 57.2
--- NOTE | 2023-12-23 15:09 | EDS_ITS ---
HPI HPI - GI History of Present Illness Chief Complaint: Abd Pain Detail of Chief Complaint: Diarrhea Informant: patient Narrative Narrative: Patient presents emergency department complaint diarrhea that started around 3 or 4 AM. She has had multiple watery stools. She has had some nausea and describes some mild abdominal cramping. There are multiple sick contacts where she is at work with similar symptoms. Patient lives in a senior living. She has had no prior abdominal surgeries. She denies urinary symptoms. She has had a low-grade fever this morning up to 99 8. Caregivers tried giving Imodium and she continues with the diarrhea. Patient has not had any cough or sore throat. [facility] Medical History (Updated 12/23/23 @ 16:[address] Tori Rossi, DO) Prader-Willi syndrome Home Medications ?Medication ?Instructions ?Recorded ?Last Taken ?Type ammonium lactate 12 % topical cream 1 applicatio topical DAILY 10/26/13 09/29/14 History calcium 600 mg (as 1 ea PO BID 10/26/13 09/29/14 History carbonate)-vitamin D3 10 mcg (400 unit) tablet multivitamin,hf-olqd-hzibburm 27 1 tab PO DAILY 10/26/13 09/29/14 History mg-0.4 mg tablet omega-3 fatty acids-fish oil 300 1 ea PO DAILY 10/26/13 09/29/14 History mg-500 mg capsule budesonide-formoterol HFA 160 2 puff inhalation BID 09/30/14 09/29/14 History mcg-4.5 mcg/actuation aerosol inhaler epinephrine 0.3 mg/0.3 mL 0.3 mg IM X1 PRN Anaphylaxis 06/01/16 Unknown History injection, auto-injector nystatin 100,000 unit/gram topical 1 applic topical BID 06/01/16 Unknown History powder clotrimazole 1 % topical cream 1 applic topical BID 04/08/17 Unknown History fluticasone propionate 50 50 mcg intranasal ONCE 04/08/17 Unknown History mcg/actuation nasal spray,suspension levothyroxine 50 mcg tablet 100 mcg PO DAILY 04/21/19 Unknown History acetaminophen 500 mg tablet 500 - 1,000 mg (1 - 2 x 500 mg) PO 05/10/19 Unknown Rx Q6H PRN PRN Pain Score 4-10/10 #30 tabs albuterol sulfate 90 mcg/actuation 2 puff inhalation Q6H PRN 05/22/21 Unknown History aerosol inhaler furosemide 20 mg tablet 20 mg PO Q OTHER DAY 05/22/21 Unknown History potassium chloride 10 mEq 10 meq PO .qod 05/22/21 Unknown History capsule,extended release norethindrone (contraceptive) 0.35 0.35 mg PO QDAY #84 tabs 06/02/23 Unknown Rx mg tablet (Arianna) cephalexin 500 mg capsule 500 mg PO Q6 #28 CAPSULES 10/31/23 Unknown Rx furosemide 40 mg tablet (Lasix) 40 mg PO DAILY 5 days #5 tabs 10/31/23 Unknown Rx dicyclomine 10 mg capsule 20 mg (2 x 10 mg) PO TIDAC #20 12/23/23 Unknown Rx CAPSULES diphenoxylate-atropine 2.5 1 tab PO Q6H PRN diarrhea #14 tabs 12/23/23 Unknown Rx mg-0.025 mg tablet (Lomotil) ondansetron 4 mg disintegrating 4 mg PO Q8H PRN PRN Nausea #10 tabs 12/23/23 Unknown Rx tablet Allergy/AdvReac Type Severity Reaction Status Date / Time insect venom (insect bites) Allergy Intermediate Itching Verified 12/23/23 13:36 phenytoin sodium (From Allergy Unknown Verified 12/23/23 13:36 Dilantin) phenytoin sodium extended Allergy Unknown Verified 12/23/23 13:36 (From Dilantin) venom-honey bee (bee venom Allergy Unknown Verified 12/23/23 13:36 (honey bee)) Family History Grandmother Diabetes Social History Smoking Status: Never smoker alcohol intake: never substance use type: does not use caffeine: Yes frequency: daily seatbelt use: always do you feel safe at home: Yes additional social history: Louis Gimenez ROS ROS ED Review of Systems ROS Unobtainable: other Constitutional Constitutional ED: Reports lethargy; Denies chills, fever(s), sweats or weight loss Eyes Eyes: Denies blurry vision, change in vision or diplopia ENT ENT ED: Denies rhinorrhea or sore throat Cardiovascular Cardiovascular: Denies chest pain, orthopnea or racing heartbeat Respiratory/Chest Respiratory/Chest: Denies cough, dyspnea, dyspnea on exertion, orthopnea or sputum Gastrointestinal Gastrointestinal: Reports diarrhea and nausea; Denies abdominal pain or vomiting Genitourinary Genitourinary ED: Denies dysuria, hematuria or urinary frequency Musculoskeletal Musculoskeletal: Denies arthralgias, back pain, myalgias or neck pain Integumentary Denies abscess, Abrasions or rash Neurologic Neurologic: Denies headache(s) or weakness Psychiatric Psychiatric: Denies anxiety, depression or suicidal thoughts Endocrine Endocrinology: Denies polydipsia, polyphagia or polyuria Hematologic/Lymphatic Hematologic/Lymphatic: Denies easy bleeding, easy bruising or lymphadenopathy Allergic/Immunologic Allergic/Immunologic ED: Denies mouth swelling, tongue swelling or urticaria EXAM Physical Exam Const Vital Signs: 12/23/23 13:36 12/23/23 15:32 Temperature 98.2 F Temperature Source Oral Pulse Rate 79 74 Respiratory Rate 16 19 H Blood Pressure 156/115 H 126/96 H Blood Pressure Mean 128 106 Pulse Ox 95 95 Oxygen Delivery Method Room Air Room Air Positive well nourished and well developed General Appearance ED: well developed and NAD HEENT Reports TM's clear and moist mucous membranes normocephalic and atraumatic; Negative for trauma or tenderness Tympanic Membrane ED: Yes TM's clear Eyes PERRL and EOMs intact bilaterally General Eye ED: Negative for pale conjunctiva or scleral icterus Neck no lymphadenopathy, supple and no JVD General: Negative for tenderness Chest Wall inspection of chest normal and palpation of chest normal Chest: Negative for tenderness Resp normal respiratory effort and clear to auscultation bilaterally Effort and Inspection: Negative for respiratory distress or pain with movement Auscultation: Negative for rhonchi, wheezes or diminished lung sounds Cardio regular rate, regular rhythm, S1 normal heart sound, S2 normal heart sound and no murmurs Peripheral Pulses: pulses 2+ throughout GI normal to inspection, nondistended, normoactive bowel sounds, soft to palpation, non-tender, non-distended and no masses Back/Spine no CVA tenderness and no thoracic nor lumbar tenderness Extremity normal to inspection General Extremety ED: Negative for edema General Extremity: Negative for edema Neuro oriented x3, CN's II-XII intact bilaterally, no sensory deficits noted and gait normal Sensorium / Orientation: awake, alert, oriented to person, oriented to place and oriented to time Motor Exam: strength 5/5 throughout and strength abnormal Psych mental status grossly normal Skin no rashes or lesions noted and no wounds MDM MDM MDM Narrative Medical decision making narrative: Patient presents with diarrhea that started 3 to 4 AM. Frequent watery stools. Low-grade fever. She has had some nausea. Describes minimal abdominal discomfort or cramping. Clinically she looks well and vital signs are stable. Her abdomen exam is benign. She has had exposure to sick contacts with similar illness. Clinically I suspect likely a viral gastroenteritis. She denies eating any unusual or undercooked foods. No recent antibiotic usage. IV line established. She was given a liter Mustain fluid bolus. CBC with differential white count of 8.5 with hemoglobin 13.5 and platelet count of 176. Chemistries were unremarkable. LFTs normal. Patient was given Lomotil 2 tabs p.o. I did order stool for enteric pathogens however patient unable to give stool sample. This point will be discharged to home as I suspect she likely has a viral gastroenteritis. Will order a prescription for Lomotil as well as Bentyl. Lab Data Attestation: I reviewed the patient's lab results. Labs: Laboratory Results - last 24 hr 12/23/23 15:20 WBC 8.5 RBC 4.41 Hgb 13.5 Hct 45.6 MCV 103.4 H MCH 30.6 MCHC 29.6 L RDW Std Deviation 51.3 H RDW Coeff of Denzel 13.4 Plt Count 176 MPV 10.6 Immature Gran % (Auto) 0.200 Neut % (Auto) 56.8 Lymph % (Auto) 24.9 [place] % (Auto) 14.5 H Eos % (Auto) 3.2 Baso % (Auto) 0.4 Absolute Neuts (auto) 4.8 Absolute Lymphs (auto) 2.11 Nucleated RBC % 0 Sodium 138 Potassium 4.6 Chloride 104 Carbon Dioxide 32.0 Anion Gap 2 L BUN 20 H Creatinine 0.60 Estim Creat Clear Calc 156.70 Est GFR (MDRD) Af Amer 140 Est GFR (MDRD) Non-Af 116 BUN/Creatinine Ratio 33.1 H Glucose 88 Calcium 9.6 Total Bilirubin 0.50 AST 26 ALT 27 Alkaline Phosphatase 98 Total Protein 7.4 Albumin 3.3 Globulin 4.1 Albumin/Globulin Ratio 0.8 L Discharge Plan Triage Chief Complaint: Abd Pain ED Provider: Tori Rossi Dx/Rx/DC Orders Clinical Impression: Viral gastroenteritis Instructions: ED Gastroenteritis, Viral (Adult) Prescriptions: New dicyclomine 10 mg capsule 20 mg PO TIDAC Qty: 20 0RF diphenoxylate-atropine [Lomotil] 2.5-0.025 mg tablet 1 tab PO Q6H PRN (Reason: diarrhea) Qty: 14 0RF ondansetron 4 mg tablet,disintegrating 4 mg PO Q8H PRN PRN (Reason: Nausea) Qty: 10 0RF No Action fluticasone propionate 50 mcg/actuation spray,suspension 50 mcg INTRANASAL ONCE clotrimazole 1 % cream 1 applic TOPICAL BID furosemide 20 mg tablet 20 mg PO Q OTHER DAY potassium chloride 10 mEq capsule, extended release 10 meq PO .qod albuterol sulfate 90 mcg/actuation HFA aerosol inhaler 2 puff inhalation Q6H PRN norethindrone (contraceptive) [Arianna] 0.35 mg tablet 0.35 mg PO QDAY Qty: 84 4RF ammonium lactate 140 GM cream 1 applicatio TOPICAL DAILY Patient Comments: skin health multivitamin,[id number] 1 TABLET tablet 1 tab PO DAILY Patient Comments: supplement omega-3 fatty acids-fish oil 1 EACH capsule 1 ea PO DAILY Patient Comments: supplement calcium carbonate-vitamin D3 1 EACH tablet 1 ea PO BID Patient Comments: supplement levothyroxine 50 mcg tablet 100 mcg PO DAILY Patient Comments: thyroid budesonide-formoterol 1 INHALER inhaler 2 puff INHALATION BID Patient Comments: copd nystatin 1 APPLIC bottle 1 applic TOPICAL BID epinephrine 0.3 MG syringe 0.3 mg IM X1 PRN (Reason: Anaphylaxis) acetaminophen 500 MG tablet 500 - 1,000 mg PO Q6H PRN PRN (Reason: Pain Score 4-10/10) Qty: 30 0RF cephalexin 500 mg capsule 500 mg PO Q6 Qty: 28 0RF furosemide [Lasix] 40 mg tablet 40 mg PO DAILY 5 Days Qty: 5 0RF Primary Care Provider: Marilee Pérez Referrals: Marilee Pérez MD [Primary Care Provider] - 3-5 Days Print Language: Slovak Disposition Disposition: Home, Self Care
[2023-12-23] MEDS: Diphenoxylate/Atrop 1 Tablet 2 TABLET PO (15:14)
[2023-12-23] MEDS: 0.9% Normal Saline (1000mL) 1,000 ML 1000 ML IV (15:21)
[2023-12-23 15:29] LABS: Absolute Lymphocyte Count 2.11 X10^3/uL (0.83-4.51); Absolute Neutrophil Count 4.8 X10^3/uL (2.0-7.7); Basophil# 0.03 X10^3/uL; Basophil% 0.4 % (0-1); Eosinophil# 0.27 X10^3/uL; Eosinophils% 3.2 % (0-5); Hematocrit 45.6 % (37-47); Hemoglobin 13.5 g/dL (12.0-15.0); Lymphocyte # 2.11 X10^3/ul (0.83-4.51); Lymphocyte % 24.9 % (19-41); Mean Corp Hgb Conc 29.6 g/dL (32-36); Mean Corpuscular Hgb 30.6 pg (27.0-32.0); Mean Corpuscular Volume 103.4 fL (81-99); Mean Platelet Vol. 10.6 fl (6.2-12.0); Monocyte# 1.23 X10^3/uL; Monocyte% 14.5 % (0-10); NRBC Flagged by Analyzer 0 % (0-5); Neutrophil % 56.8 % (47-70); Platelet Count 176 K/mm3 (150-450); RBC Distribution Width CV 13.4 % (11.6-14.6); RBC Distribution Width SD 51.3 fl (35.1-43.9); Red Blood Count 4.41 M/mm3 (4.2-5.4); White Blood Count 8.5 K/mm3 (4.4-11.0)
[2023-12-23 15:32] VITALS: BP 126/96; PULSE 74; RESP 19; O2SAT 95
[2023-12-23 15:57] LABS: ALB/GLOB Ratio 0.8 RATIO (0.9-2.4); AST(SGOT) 26 U/L (15-37); Alanine Aminotransfer ALT/SGPT 27 U/L (13-56); Albumin, Serum 3.3 g/dL (3.2-5.0); Alkaline Phosphatase 98 U/L (45-117); Anion Gap 2 (5-15); BUN 20 mg/dL (7-18); BUN/Creat Ratio 33.1 RATIO (10-20); Calcium,Total 9.6 mg/dL (8.5-10.1); Chloride 104 mmol/L (98-107); EST Glomerular Filtration Rate 116 mL/min (>60); Est Glom Filt Rate - Afr Amer 140 mL/min (>60); Globulin 4.1 g/dL (2.2-4.2); Glucose 88 mg/dL (74-106); Potassium 4.6 mmol/L (3.5-5.1); Protein, Total 7.4 g/dL (6.4-8.2); Sodium Level 138 mmol/L (136-145)
[2023-12-23 16:00] VITALS: BP 138/72; PULSE 77; RESP 19; TEMP 36.8; O2SAT 95
== END 2023-12-23 17:11 | disposition home or self-care (01) ==
PROVIDERS: Emergency Provider Emergency Medicine; PCP Internal Medicine; Visit Provider Emergency Medicine
DX: A08.4 Viral intestinal infection, unspecified (principal)
CPT/HCPCS: 96360; 96361; 99283; 80053; 85025; J7030; A4216

== ENCOUNTER 2023-12-26 17:03 | Inpatient (IN) | payer MEDICARE, MEDICAID, SELFPAY ==
[2023-12-26] VITALS (14 sets, daily range): BP systolic 112–140; BP diastolic 87–110; PULSE 65–81; RESP 12–20; TEMP 35.6–36.1; O2SAT 80–100; BMI 58.1; BMI 57.9
--- NOTE | 2023-12-26 17:50 | EKG12_ITS ---
Test Reason : SOB Blood Pressure : / mmHG Vent. Rate : 075 BPM Atrial Rate : 075 BPM P-R Int : 124 ms QRS Dur : 074 ms QT Int : 438 ms P-R-T Axes : 047 -21 -33 degrees QTc Int : 489 ms Normal sinus rhythm T wave abnormality, consider inferior ischemia T wave abnormality, consider anterior ischemia Prolonged QT Abnormal ECG Confirmed by Greg Bond ([id number]), mapping editor PREETI PEOPLES ([id number]) on 12/29/2023 11:55:49 AM Referred By: Confirmed By:Greg Bond
--- OUTSIDE RECORDS SUMMARY | 2023-12-26 17:51 | XMS RPT_ITS | CCD ---
Author Organization [facility] Care Team Providers Care Pedicab Driver Name Role Phone IMCA Unavailable Unavailable RICKI HIRSCH Unavailable Unavailable Smita Salgado Unavailable Unavailable Sherif Thakur Unavailable Unavailable Lexus Jackson Unavailable Unavailable Sherif Thakur Unavailable Sherif Thakur MD Primary Care Provider Sherif Thakur MD Primary Care Provider Sherif Thakur MD Primary Care Provider UNKNOWN, UNKNOWN Referring Unavailable Ms. Mikayla Ly I Attending UnavailDr. Sherif Tyler Primary Care UnavailMarisol Duarte Attending Unavailable UNKNOWN, UNKNOWN Referring Unavailable Dr. Sherif Thakur Primary Care Unavailjacques Thakur MD, Sherif Primary Care Provider MARISOL MOHAMUD Attending Unavailable SHERIF THAKUR Primary Care Unavailable MIKAYLA LY I Attending Unavailable SHERIF THAKUR Primary Care Unavailable DR SHERIF THAKUR MD Primary Care Physician [phone] SHERIF THAKUR Primary Care Unavailable TERESA YEUNG Attending Unavailable SHERIF THAKUR Attending Unavailable SHERIF THAKUR Primary Care Unavailable ELSIE KAPLAN Referring Unavailable GANSHERIF COLLIER Primary Care Unavailable GANSHERIF COLLIER Primary Care Unavailable ELSIE KAPLAN Attending Unavailable GANTA, SHERIF Primary Care Unavailable TERESA YEUNG Attending Unavailable DR SHERIF THAKUR MD Primary Care UnavailTABATHA Willams DO Attending Unavailable Allergies Allergy Classification Reported Allergen(s) Allergy Type Date of Onset Reaction(s) Facility Anti-Epileptic Agents (1 source) Phenytoin Drug Allergy [address] [place] [address] (20 sources) phenytoin; Translations: [PHENYTOIN SODIUM EXTENDED] Drug Allergy 6 [facility] Repository (2 sources) OTHER; Translations: [OTHER] Propensity to adverse reactions (disorder) 6 [facility] (20 sources) apis mellifera venom; Translations: [BEE STING] allergy to substance 3 Anaphylaxis [facility] Work Phone: (20 sources) BEES,WASPS [Other] Propensity to adverse reactions 6 Swelling [facility] Work Phone: (20 sources) mosquitoes [Other] Propensity to adverse reactions 6 [facility] (1 source) Bee/Wasp/Ant venom Allergy to substance [facility] (1 source) Phenytoin; Translations: [phenytoin] Drug Allergy [facility] (1 source) misc non-codified allergy Allergy to substance [facility] Medications Current Medications Medication Drug Class(es) Dates Sig (Normalized) Sig (Original) acetaminophen 500 mg oral tablet (20 sources) Start: 03-21-2022 take 2 tablets by mouth every eight hours as needed acetaminophen (TYLENOL EXTRA STRENGTH) 500 mg tablet Take 2 tablets by mouth every 8 hours as needed for pain (For knee pain). 30 tablet 5 03/21/2022 Active Comment on above: Take 2 tablets by mo [facility] every 8 hours as needed for pain (For knee pain). [id number] 200 actuat albuterol 0.09 mg/actuat metered dose inhaler (20 sources) beta2-Adrenergic Agonist Start: 02-07-2023 take 2 puff(s) by inhalation every four hours as needed for wheezing albuterol HFA (VENTOLIN HFA) 90 mcg/actuation inhaler Indications: Bronchitis Inhale 2 Puffs as instructed every 4 hours as needed for wheezing/shortness of breath. 1 Each 3 02/07/2023 Active Start: 05-30-2021 take 2 puff(s) by in halation every four hours as needed for wheezing albuterol HFA (VENTOLIN HFA) 90 mcg/actuation inhaler Indications: Bronchitis Inhale 2 Puffs as instructed every 4 hours as needed for wheezing/shortness of breath. 1 Each 3 05/30/2021 Active Comment on above: Inhale 2 Puffs as in structed every 4 hours as needed for wheezing/shortness of breath. Budesonide / formoterol (20 sources) Corticosteroid, beta2-Adrenergic Agonist Start: 04-02-19 End: 07-09-19 take 2 puff(s) by mouth twice daily budesonide-formotero l (SYMBICORT) 160-4.5 mcg/actuation inhaler INHALE 2 PUFFS BY MOUTH TWICE DAILY ( INSTRUCTED) *SHAKE WELL 10.2 g 10 04/02/2023 07/09/2023 Discontinued Start: 04-02-2023 take 2 puff(s) by mo uth twice daily budesonide-formoterol (SYMBICORT) 160-4.5 mcg/actuation inhaler INHALE 2 PUFFS BY MOUTH TWICE DAILY ( INSTRUCTED) *SHAKE WELL 10.2 g 10 04/02/2023 Active Start: 08-08-2022 take 2 puff(s) by mo uth twice daily budesonide-formoterol (SYMBICORT) 160-4.5 mcg/actuation inhaler INHALE 2 PUFFS BY MOUTH TWICE DAILY ( INSTRUCTED) *SHAKE WELL 10.2 g 10 08/08/2022 Active Start: 08-15-2021 End: 08-08-2022 take 2 puff(s) by mouth twice daily budesonide-formoterol (SYMBICORT) 160-4.5 mcg/actuation inhaler INHALE 2 PUFFS BY MOUTH TWICE DAILY ( INSTRUCTED) *SHAKE WELL 10.2 g 10 08/15/2021 08/08/2022 Discontinued Start: 08-15-2021 take 2 puff(s) by mo uth twice daily budesonide-formoterol (SYMBICORT) 160-4.5 mcg/actuation inhaler INHALE 2 PUFFS BY MOUTH TWICE DAILY ( INSTRUCTED) *SHAKE WELL 10.2 g 10 08/15/2021 Active Start: 08-21-2020 End: 08-15-2021 take 2 puff(s) by mouth twice daily budesonide-formoterol (SYMBICORT) 160-4.5 mcg/actuation inhaler INHALE 2 PUFFS BY MOUTH TWICE DAILY ( INSTRUCTED ) *SHAKE WELL, RINSE MOUTH AFTER USE* 10.2 g 11 08/21/2020 08/15/2021 Discontinued Start: 08-21-2020 take 2 puff(s) by mo ut twice daily budesonide-formoterol (SYMBICORT) 160-4.5 mcg/actuation inhaler INHALE 2 PUFFS BY MOUTH TWICE DAILY ( INSTRUCTED ) *SHAKE WELL, RINSE MOUTH AFTER USE* 10.2 g 11 08/21/2020 Active Start: 06-01-2015 take 2 puff(s) by mo ut twice daily Symbicort 160-4.5 MCG/ACT Inhalation Aerosol INHALE 2 PUFFS TWICE DAILY. RINSE MOUTH AFTER USE. Quantity: 0 Refills: 0 Ordered: 01-Jun-2015 DO Start : 01-Jun-2015 Active Comment on above: INHALE 2 PUFFS BY MO UT TWICE DAILY ( INSTRUCTED ) *SHAKE WELL, RINSE MOUTH AFTER USE* INHALE 2 PUFFS BY MO UT TWICE DAILY ( INSTRUCTED) *SHAKE WELL calcium carbonate 1250 mg / cholecalciferol 200 unt oral tablet (20 sources) Vitamin D Start: 06-01-19 16 End: 07-09-19 take 1 tablet by mouth twice daily at mealtime OYSTER SHELL CALCIUM-VITAMIN D 500 mg-5 mcg (200 unit) per tablet take one tablet by mouth twice daily with meals 62 tablet 07/09/2023 Active Comment on above: Take 1 tablet by erin twice daily with meals. Take 1 tablet by erin two times a day with meals. cetirizine hydrochloride 10 mg oral tablet (20 sources) Histamine-1 Receptor Antagonist Start: 11-18-19 take 1 tablet by mouth once daily cetirizine (ZYRTEC) 10 mg tablet Indications: Rash Take 1 tablet by mouth once daily. 150 tablet 11/18/2019 Active Comment on above: Take 1 tablet by erin once daily. clotrimazole 10 mg/ml topical cream (20 sources) Azole Antifungal Start: 02-29-20 clotrimazole (LOTRIMIN) 1 % cream Indications: Yeast dermatitis APPLY TOPICALLY TO AFFECTED AREA(S) ON BILATERAL GROIN TWICE DAILY 30 g 10 02/28/2023 Active Start: 01-26-2021 clotrimazole ( LOTRIMIN, CLOTRIM) 1 % cream APPLY TOPICALLY TO AFFECTED AREA(S) ON BILATERAL GROIN TWICE DAILY 30 g 10 01/26/2021 Active Comment on above: APPLY TOPICALLY TO A FFECTED AREA(S) ON BILATERAL GROIN TWICE DAILY COMPOUNDED PRESCRIPTION (20 sources) Start: 04-01-2017 COMPOUNDED PRESCRIPTION Indications: Venous insufficiency (chronic) (peripheral) 1 Each once daily. Custom 20-30mmHg knee high compression stockings. Dx: Recurrent cellulitis legs and morbid obesity.Lymph Edema 8am for 2 pairs per year 4 Each 04/01/2017 Active Start: 04-01-2017 COMPOUNDED PRE SCRIPTION Indications: Venous insufficiency (chronic) (peripheral) 1 Each once daily. Custom 20-30mmHg knee high compression stockings. Dx: Recurrent cellulitis legs and morbid obesity.Lymph Edema 8am for 2 pairs per year 4 Each 0 04/01/2017 Active Start: 09-16-2016 COMPOUNDED PRE SCRIPTION Indications: Prader-Willi syndrome , Other diseases of lung, not elsewhere classified Pt's body checks to be completed once weekly during the day. 1 Each 09/16/2016 Active Start: 07-13-2015 COMPOUNDED PRE SCRIPTION Indications: Prader-Willi syndrome Weight check q Sun at 8pm and q Fri at 4pm Dx:Q87.1 1 Each 99 07/13/2015 Active Comment on above: Weight check q Sun a t 8pm and q Fri at 4pm Dx:Q87.1 Pt's body checks to be completed once weekly during the day. 1 Each once daily. C ustom 20-30mmHg knee high compression stockings. Dx: Recurrent cellulitis legs and morbid obesity.Lymph Edema 8am for 2 pairs per year Desogestrel / Ethinyl Estradiol (20 sources) Progestin, Estrogen Start: 08-29-2020 take 1 tablet by mouth once daily, then take 0.15 tablet by mouth once Desogestrel-Ethiny l Estradiol (APRI) 0.15-0.03 mg per tablet Take 1 tablet by mouth once daily. 28 tablet 11 08/29/2020 Active Start: 06-01-2015 Apri 0.15-30 M G-MCG Oral Tablet 28 day tablet: take 1 tablet PO QD Refills: 0 Start : 01-Jun-2015 Active Comment on above: Take 1 tablet by erin th once daily. diphenhydrAMINE hydrochloride 25 mg oral tablet (20 sources) Histamine-1 Receptor Antagonist Start: take 1 tablet by mouth every six hours as needed diphenhydrAMINE (BENADRYL) 25 mg tablet Indications: Rash Take 1 tablet by mouth every 6 hours as needed. 48 tablet 11/18/2019 Active Comment on above: Take 1 tablet by erin th every 6 hours as needed. doxycycline hyclate 100 mg oral tablet (3 sources) Tetracycline-class Drug Start: End: take 1 tablet by mouth twice daily doxycycline (VIBRA-TABS) 100 mg tablet Indications: Cellulitis of left lower extremity Take 1 tablet by mouth two times a day for 10 days. 20 tablet 11/13/2023 11/23/2023 Active [id number] 0.3 ml EPINEPHrine 1 mg/ml auto-injector (20 sources) alpha-Adrenergic Agonist, beta-Adrenergic Agonist, Catecholamine Start: 022 End: 024 EPINEPHrine (EPIPEN) 0.3 mg/0.3 mL auto-injector Indications: Allergic to bees , Bee allergy status INJECT 1 PEN INTO LATERAL THIGH DIRECTED FOR ALLERGIC REACTIONS TO BEE/WASP STINGS MAY REPEAT IN 5-15 MINUTES IF SYMPTOMS PERSIST * *STAFF REORDER, 4 DAYS IN ADVANCE* 2 Each 08/06/2023 Active Start: 06-01-2015 EpiPen 2-Jerome 0 .3 MG/0.3ML Injection Solution Auto-injector Inject 1 pen injector into lateral thigh as directed for bee/wasp stings, call 911 immediately after injection. Quantity: 0 Refills: 0 Ordered: 01-Jun-2015 DO Start : 01-Jun-2015 Active Comment on above: INJECT 1 PEN INTO LA TERAL THIGH DIRECTED FOR ALLERGIC REACTIONS TO BEE/WASP STINGS MAY REPEAT IN 5-15 MINUTES IF SYMPTOMS PERSIST * *STAFF REORDER, 4 DAYS IN ADVANCE* fluticasone propionate 0.05 mg/actuat metered dose nasal spray (20 sources) Corticosteroid Start: 1 End: 4 take 2 spray(s) nasal route once daily fluticasone (FLONASE) 50 mcg/actuation nasal spray INSTILL 2 SPRAYS IN EACH NOSTRIL DAILY 16 g 10 08/22/2023 Active Start: 10-17-2014 take 2 spray(s) nasa l route once daily Fluticasone Propionate 50 MCG/ACT Nasal Suspension instill 2 sprays into each nostril once daily Quantity: 16 Refills: 0 Ordered: 02-Nov-2014 DO Start : 17-Oct-2014 Active Comment on above: INSTILL 2 SPRAYS IN EACH NOSTRIL DAILY *SHAKE GENTLY BEFORE USING* INSTILL 2 SPRAYS IN EACH NOSTRIL DAILY 60 actuat formoterol fumarate 0.005 mg/actuat / mometasone furoate 0.1 mg/actuat metered dose inhaler (20 sources) Corticosteroid, beta2-Adrenergic Agonist Start: 07-09-2023 take 2 puff(s) by mouth twice daily DULERA 100-5 mcg/actuation inhaler INHALE 2 PUFFS BY MOUTH TWICE DAILY ( INSTRUCTED) 13 g 10 07/09/2023 Active Start: 05-29-2023 End: 07-09-2023 take 2 puff(s) by inhalation twice daily mometasone-formoterol (DULERA) 100-5 mcg/actuation inhaler Inhale 2 Puffs as instructed two times a day. 13 g 1 05/29/2023 07/09/2023 Discontinued Comment on above: Inhale 2 Puffs as in structed two times a day. furosemide 40 mg oral tablet (20 sources) Loop Diuretic Start: 12-12-2023 End: 12-22-2023 take 1 tablet by mouth once daily furosemide (LASIX) 40 mg tablet Take 1 tablet by mouth once daily. 7 tablet 12/22/2023 Active Start: 02-05-2023 End: 11-18-2023 take 1 tablet by mouth every other day furosemide (LASIX) 20 mg tablet Indications: Lymphedema TAKE ONE TABLET BY MOUTH EVERY OTHER DAY FOR LYMPHEDEMA 30 tablet 11 11/18/2023 Active Start: 02-05-2021 End: 02-06-2022 take 1 tablet by mouth every other day furosemide (LASIX) 20 mg tablet Indications: Lymphedema TAKE ONE TABLET BY MOUTH EVERY OTHER DAY 16 tablet 10 02/06/2022 Active Start: 11-05-2018 take 1 tablet by erin th once daily Furosemide 20 MG Oral Tablet TAKE 1 TABLET DAILY DIRECTED. Quantity: 0 Refills: 0 Ordered: 05-Nov-2018 DO Start : 05-Nov-2018 Active Comment on above: TAKE ONE TABLET BY M OUTH EVERY OTHER DAY TAKE ONE TABLET BY M OUTH EVERY OTHER DAY FOR LYMPHEDEMA Gauze Bandage 2 X 2 bndg (20 sources) Start: 08-29-2020 Gauze Bandage 2 X 2 bndg Indications: Avulsion of skin of right foot, initial encounter Apply 1 application to affected area twice daily. 25 Each 08/29/2020 Active Start: 08-29-2020 Gauze Bandage 2 X 2 bndg Indications: Avulsion of skin of right foot, initial encounter Apply 1 application to affected area twice daily. 25 Each 0 08/29/2020 Active Comment on above: Apply 1 application to affected area twice daily. ammonium lactate 120 mg/ml topical cream (20 sources) Start: 01-27-20 21 End: 11-24-19 24 ammonium lactate (LAC-HYDRIN) 12 % cream APPLY TOPICALLY TO AFFECTED AREA(S) ON LEGS AT BEDTIME 280 g 11/24/2023 Active Comment on above: APPLY TOPICALLY TO A FFECTED AREA(S) ON LEGS AT BEDTIME Leg Brace (TRUE CMFT KNEE COMPRESSION) misc (8 sources) Start: 11-18-19 Leg Brace (TRUE CMFT KNEE COMPRESSION) misc Indications: Lymphedema 1 Each once daily. 2 Each 1 11/18/2023 Active levothyroxine sodium 0.1 mg oral tablet (20 sources) l-Thyroxine Start: 08-17-19 23 End: 07-21-19 24 take 1 tablet by mouth once daily 1 hour(s) before breakfast levothyroxine (SYNTHROID) 100 mcg tablet take one tablet by mouth daily one hour before breakfast 31 tablet 07/21/2023 Active Start: 10-12-2020 End: 09-05-2021 take 1 tablet by mouth once daily 1 hour(s) before breakfast levothyroxine (SYNTHROID) 100 mcg tablet TAKE ONE TABLET BY MOUTH DAILY ONE HOUR BEFORE BREAKFAST 31 tablet 09/05/2021 Active Start: 06-01-2015 take 1 tablet by erin once daily 60 minutes before breakfast Levothyroxine Sodium 50 MCG Oral Tablet TAKE 1 TABLET DAILY. Take 60 minutes before breakfast Quantity: 0 Refills: 0 Ordered: 01-Jun-2015 DO Start : 01-Jun-2015 Active Comment on above: TAKE ONE TABLET BY M OUTH DAILY ONE HOUR BEFORE BREAKFAST MEDICAL SUPPLY (20 sources) Start: 07-06-2021 MEDICAL SUPPLY Indications: Lymphedema , Prader-Willi syndrome Lymphedema massage therapy 1 Each 07/06/2021 Active Start: 07-06-2021 MEDICAL SUPPLY Indications: Lymphedema , Prader-Willi syndrome Lymphedema massage therapy 1 Each 0 07/06/2021 Active Start: 07-06-2021 End: 07-06-2021 MEDICAL SUPPLY Indications: Lymphedema , Prader-Willi syndrome Lymphedema massage therapy 1 Each 0 07/06/2021 07/06/2021 Discontinued Comment on above: Lymphedema massage t herapy multivitamin-ferrou s fumarate-folic acid (CERTAVITE-ANTIOXID ANT) (20 sources) Start: 09-19-2023 take 1 tablet by mouth once daily multivitamin-ferr ous fumarate-folic acid (CERTAVITE-ANTIOX IDANT) Take 1 tablet by mouth once daily. 31 tablet 10 09/19/2023 Active Start: 10-23-2022 End: 09-19-2023 take 1 tablet by mouth once daily multivitamin-ferrous fumarate-folic acid (CERTAVITE-ANTIOXIDANT) Take 1 tablet by mouth once daily. 31 tablet 10 10/23/2022 09/19/2023 Discontinued Start: 10-23-2022 take 1 tablet by erin th once daily multivitamin-ferrous fumarate-folic acid (CERTAVITE-ANTIOXIDANT) Take 1 tablet by mouth once daily. 31 tablet 10 10/23/2022 Active Comment on above: Take 1 tablet by erin th once daily. naproxen 500 mg oral tablet (20 sources) Nonsteroidal Anti-inflammatory Drug Start: 2 End: 3 take 1 tablet by mouth twice daily as needed for pain naproxen (NAPROSYN) 500 mg tablet Indications: Strain of lumbar region, subsequent encounter TAKE ONE TABLET BY MOUTH TWICE DAILY NEEDED FOR PAIN/INFLAMMATION OF KNEE *TAKE WITH FOOD* *STAFF REORDER, 4 DAYS IN ADVANCE* 31 tablet 10 08/27/2022 Active Comment on above: TAKE ONE TABLET BY M OUTH TWICE DAILY NEEDED FOR PAIN/INFLAMMATION OF KNEE *TAKE WITH FOOD* *STAFF REORDER, 4 DAYS IN ADVANCE* Norethindrone (20 sources) Start: IRAIDA 0.35 mg tablet 06/20/2021 Active Start: 06-20-2021 IRAIDA 0.35 m g tablet nystatin 100 unt/mg topical powder (20 sources) Polyene Antifungal Start: 07-19-2020 End: 07-09-2023 nystatin (NYAMYC) powder APPLY TOPICALLY TWICE DAILY TO AFFECTED AREA(S) ON ABDOMINAL FOLDS 60 g 10 07/09/2023 Active Start: 06-01-2015 Nystop [id number] UNIT/GM External Powder APPLY TOPICALLY TWICE DAILY TO AFFECTED AREA(S) Quantity: 0 Refills: 0 Ordered: 01-Jun-2015 DO Start : 01-Jun-2015 Active Comment on above: APPLY TOPICALLY TWIC E DAILY TO AFFECTED AREA(S) ON ABDOMINAL FOLDS *EXTERNAL USE ONLY* Xpsdo-8-PNI-EPA-Fi sh Oil 1,000 mg (120 mg-180 mg) cap (20 sources) Start: 08-22-2023 take 1 capsule by mouth once daily Iyxvy-6-UVN-EPA-Fi sh Oil 1,000 mg (120 mg-180 mg) cap Take 1 capsule by mouth once daily. 31 capsule 08/22/2023 Active Start: 08-08-2022 End: 08-22-2023 take 1 capsule by mouth once daily Patox-6-BMN-EPA-Fish Oil 1,000 mg (120 mg-180 mg) cap TAKE ONE CAPSULE BY MOUTH DAILY 31 capsule 08/08/2022 08/22/2023 Discontinued Start: 08-08-2022 take 1 capsule by [facility] once daily Pduno-7-ICS-EPA-Fish Oil 1,000 mg (120 mg-180 mg) cap TAKE ONE CAPSULE BY MOUTH DAILY 31 capsule 10 08/08/2022 Active Comment on above: TAKE ONE CAPSULE BY MOUTH DAILY perflutren lipid microspheres 1.3 mL in NaCl (PF) 0.9% 10 mL injection (DEFINITY) (20 sources) Start: 06-28-2021 End: 09-27-2022 perflutren lipid microspheres 1.3 mL in NaCl (PF) 0.9% 10 mL injection (DEFINITY) potassium chloride 20 meq extended release oral tablet (20 sources) Start: 12-12-2023 End: 12-22-2023 take 1 tablet by mouth once daily potassium chloride 20 mEq TbER Take 1 tablet by mouth once daily. 7 tablet 12/22/2023 Active Start: 11-18-2023 take 1 tablet by erin th once daily potassium chloride ER (KLOR-CON M10) 10 mEq tablet Indications: Lymphedema Take 1 tablet by mouth once daily. 30 tablet 11 11/18/2023 Active Start: 06-05-2022 End: 11-18-2023 take 1 tablet by mouth every other day at breakfast potassium chloride ER (KLOR-CON M10) 10 mEq tablet TAKE ONE TABLET BY MOUTH EVERY OTHER DAY ( WITH BREAKFAST) ON DAYS WHEN YOU TAKE LASIX (FUROSEMIDE) 16 tablet 11 06/13/2023 11/18/2023 Discontinued Start: 12-20-2020 End: 10-23-2022 potassium chloride (K-TAB) 1 0 mEq tablet Indications: Lymphedema Take one tablet on days when you are taking lasix. 45 tablet 2 09/20/2021 10/23/2022 Discontinued (Duplicate Entry) Comment on above: Take one tablet on d ays when you are taking lasix. TAKE ONE TABLET BY M OUTH EVERY OTHER DAY ( WITH BREAKFAST) ON DAYS WHEN YOU TAKE LASIX (FUROSEMIDE) 125 ml sodium chloride 9 mg/ml prefilled syringe (20 sources) Start: 06-28-2021 End: 09-27-2022 sodium chloride 0.9 % (flush) 10 mL (BD POSIFLUSH) Completed/Discontinued Medications Medication Drug Class(es) Dates Sig (Normalized) Sig (Original) Apri 0.15-30 MG-MCG Oral Tablet (6 sources) Start: 06-01-2015 Apri 0.15-30 MG-MCG Oral Tablet 28 day tablet: take 1 tablet PO QD Quantity: 0 Refills: 0 Ordered: 01-Jun-2015 DO Start : 01-Jun-2015 Active ascorbic acid 60 mg / beta carotene 5000 unt / copper sulfate 40 mg / dl-alpha tocopheryl acetate 30 unt / sodium selenite 0.04 mg / zinc oxide 40 mg oral tablet (2 sources) Vitamin C Start: 06-01-2015 take 1 tablet by mouth once daily CertaVite/Antioxid ants Oral Tablet TAKE 1 TABLET DAILY. Refills: 0 Start : 01-Jun-2015 Active benzonatate 100 mg oral capsule (14 sources) Non-narcotic Antitussive Start: 03-21-2022 End: 10-23-2022 take 1 capsule by mouth every twenty-four hours as needed benzonatate (TESSALON PERLES) 100 mg capsule Take 1 capsule by mouth at bedtime as needed for cough. 15 capsule 0 03/21/2022 10/23/2022 Discontinued Comment on above: Take 1 capsule by mo [facility] at bedtime as needed for cough. CERTAVITE-ANTIOXID ANT (20 sources) Start: 11-06-2020 End: 10-23-2022 take 1 tablet by mouth once daily CERTAVITE-ANTIOXID ANT TAKE ONE TABLET BY MOUTH DAILY 31 tablet 10 11/06/2020 10/23/2022 Discontinued Start: 11-06-2020 take 1 tablet by erin once daily CERTAVITE-ANTIOXIDANT TAKE ONE TABLET BY MOUTH DAILY 31 tablet 10 11/06/2020 Active Comment on above: TAKE ONE TABLET BY M OUTH DAILY CertaVite/Antioxidants Oral Tablet (1 source) Start: 6 take 1 tablet by mouth once daily CertaVite/Antiox idants Oral Tablet TAKE 1 TABLET DAILY. Refills: 0 Start : 01-Jun-2015 Active CertaVite/Antioxidants Oral Tablet (6 sources) Start: 6 take 1 tablet by mouth once daily CertaVite/Antiox idants Oral Tablet TAKE 1 TABLET DAILY. Quantity: 0 Refills: 0 Ordered: 01-Jun-2015 DO Start : 01-Jun-2015 Active docosahexaenoic acid 120 mg / eicosapentaenoic acid 180 mg oral capsule (8 sources) Start: 6 take 1 capsule by mouth once daily Fish Oil 1000 MG Oral Capsule TAKE 1 CAPSULE DAILY. Quantity: 0 Refills: 0 Ordered: 01-Jun-2015 DO Start : 01-Jun-2015 Active ergocalciferol 1.25 mg oral capsule (9 sources) Provitamin D2 Compound take 1 capsule by mouth once Vitamin D (Ergocalciferol) 1.25 MG (05391 UT) Oral Capsule Quantity: 0 Refills: 0 Ordered: 06-Dec-2016 DO Active Vitamin D (Ergoc alciferol) 1.25 MG (20565 UT) Oral Capsule Refills: 0 Active Vitamin D (Ergoc alciferol) 18956 UNIT Oral Capsule Refills: 0 Active Fish Oil-[place]-3 Fatty Acids (FISH OIL) 340-1,000 mg cap (7 sources) Start: 08-21-2020 End: 08-15-2021 take 1 capsule by mouth once daily Fish Oil-[place]-3 Fatty Acids (FISH OIL) 340-1,000 mg cap Take 1 capsule by mouth once daily. 31 capsule 11 08/21/2020 08/15/2021 Discontinued Start: 08-21-2020 take 1 capsule by mo uth once daily Fish Oil-[place]-3 Fatty Acids (FISH OIL) 340-1,000 mg cap Take 1 capsule by mouth once daily. 31 capsule 11 08/21/2020 Active Comment on above: Take 1 capsule by mo uth once daily. Fish Oils (20 sources) Start: 08-15-2021 End: 10-23-2022 take 1 capsule by mouth once daily FISH OIL 340-1,000 mg cap TAKE ONE CAPSULE BY MOUTH DAILY 31 capsule 10 08/15/2021 10/23/2022 Discontinued (Duplicate Entry) Start: 08-15-2021 take 1 capsule by mo uth once daily FISH OIL 340-1,000 mg cap TAKE ONE CAPSULE BY MOUTH DAILY 31 capsule 10 08/15/2021 Active Comment on above: TAKE ONE CAPSULE BY MOUTH DAILY omega-3 acid ethyl esters (chcf) 1000 mg oral capsule (1 source) Start: 06-01-2015 take 1 capsule by mouth once daily Fish Oil 1000 MG Oral Capsule TAKE 1 CAPSULE DAILY. Refills: 0 Start : 01-Jun-2015 Active Problems Active Problems Problem Classification Problem Date Documented Da te Episodic/Chronic Abdominal pain (1 source) Left inguinal pain; Translations: [Left lower quadrant pain] 05-31-2021 Episodic Allergic reactions (4 sources) Allergy to bee venom; Translations: [Bee allergy status] Episodic Asthma (20 sources) Mild intermittent asthma; Translations: [Mild intermittent asthma, uncomplicated] 08-21-2018 Chronic Chronic obstructive pulmonary disease and bronchiectasis (1 source) Bronchitis; Translations: [Bronchitis, not specified as acute or chronic] 02-04-2023 Episodic Chronic ulcer of skin (2 sources) Ulcer of thigh; Translations: [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] Chronic Diabetes mellitus without complication (1 source) Hyperglycemia; Translations: [Hyperglycemia, unspecified] Episodic Fluid and electrolyte disorders (8 sources) Hypervolemia; Translations: [Other fluid overload] Episodic Heart valve disorders (9 sources) Heart murmur; Translations: [Undiagnosed cardiac murmurs] Episodic Nutritional deficiencies (20 sources) Vitamin D deficiency; Translations: [Unspecified vitamin D deficiency] Onset: 11-05-2011 11-05-2011 Chronic Other congenital anomalies (20 sources) Prader-Willi syndrome; 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] Onset: 08-27-2005 11-06-2020 Chronic Comment on above: Added by Problem [facility] Migration; 2012-10-30; Moved to [facility] Feb 05 2013 9:10PM; Other connective tissue disease (1 source) Pain in left lower limb; Translations: [Pain in left leg] 11-13-2023 Episodic Other connective tissue disease (1 source) Pain in left leg; Translations: [Pain of left lower extremity] Onset: 11-13-2023 Episodic Other diseases of veins and lymphatics (2 sources) Lymphedema, not elsewhere classified; Translations: [Lymphedema] Onset: 01-01-2017 Chronic Other diseases of veins and lymphatics (20 sources) Lymphedema of left lower limb; Translations: [Lymphedema, not elsewhere classified] Onset: 01-16-2016 01-16-2016 Chronic Other diseases of veins and lymphatics (20 sources) Lymphedema of right lower limb; Translations: [Lymphedema, not elsewhere classified] Onset: 01-16-2016 01-16-2016 Chronic Other endocrine disorders (20 sources) Disorder of anterior pituitary; Translations: [Hypopituitarism] Onset: 12-07-2015 12-07-2015 Chronic Other lower respiratory disease (2 sources) Dyspnea; Translations: [Shortness of breath] Onset: 12-21-2023 Episodic Other lower respiratory disease (1 source) Cough; Translations: [Acute cough] Episodic Other lower respiratory disease (2 sources) Other forms of dyspnea; Translations: [Other forms of dyspnea] Onset: 12-04-2023 Episodic Other non-traumatic joint disorders (1 source) Pain in right knee; Translations: [Pain in joint, lower leg] Episodic Other nutritional; endocrine; and metabolic disorders (2 sources) Morbid (severe) obesity due to excess calories; Translations: [Morbid (severe) obesity due to excess calories (Multi)] Onset: 12-04-2023 Chronic Other nutritional; endocrine; and metabolic disorders (8 sources) Personal history of other endocrine, nutritional and metabolic disease; Translations: [History of adult obesity] Episodic Other screening for suspected conditions (not mental disorders or infectious disease) (4 sources) Patient encounter status; Translations: [Encounter for screening for lipoid disorders] Episodic Other upper respiratory disease (20 sources) Allergic rhinitis; Translations: [Allergic rhinitis, unspecified] 12-13-2015 Chronic Residual codes; unclassified (20 sources) Obstructive sleep apnea syndrome; Translations: [Obstructive sleep apnea (adult)(pediatric)] Onset: 12-14-2014 03-05-2021 Chronic Residual codes; unclassified (1 source) Edema of foot; Translations: [Localized edema] Episodic Residual codes; unclassified (1 source) Edema; Translations: [Edema, unspecified] 11-13-2023 Episodic Residual codes; unclassified (1 source) Edema, unspecified; Translations: [Edema, unspecified type] Onset: 11-13-2023 Episodic Skin and subcutaneous tissue infections (1 source) Cellulitis of left lower limb; Translations: [Cellulitis of left lower limb] 11-13-2023 Episodic Sprains and strains (2 sources) Low back strain; Translations: [Strain of muscle, fascia and tendon of lower back, subsequent encounter] Episodic Thyroid disorders (20 sources) Acquired hypothyroidism; Translations: [Unspecified acquired hypothyroidism] Onset: 01-28-2006 Resolved: 12-14-2014 12-14-2014 Chronic Unclassified (1 source) Unknown / UNK(Unknown) Onset: 01-01-2017 Unclassified (2 sources) Prader-Willi syndrome; 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 ([facility])] Onset: 12-04-2023 Past or Other Problems Problem Classification Problem Date Documented Date Episodic/Chronic Adjustment disorders (9 sources) Adjustment disorder with mixed anxiety and depressed mood; Translations: [Adjustment disorder with mixed anxiety and depressed mood] Resolved: 12-14-2019 Chronic Malaise and fatigue (20 sources) Malaise and fatigue; Translations: [Other malaise] Onset: 08-06-2005 Resolved: 12-13-2013 12-13-2013 Episodic Menstrual disorders (20 sources) Amenorrhea; Translations: [Amenorrhea, unspecified] Onset: 06-18-2011 Resolved: 12-07-2015 12-07-2015 Chronic Open wounds of extremities (20 sources) Open wound of lower limb; Translations: [Unspecified open wound, unspecified knee, initial encounter] Onset: 12-04-2009 Resolved: 12-13-2013 12-13-2013 Episodic Other diseases of veins and lymphatics (20 sources) Lymphedema; Translations: [Other lymphedema] Onset: 04-26-2013 Resolved: 12-14-2014 Chronic Other diseases of veins and lymphatics (20 sources) Peripheral venous insufficiency; Translations: [Venous insufficiency (chronic) (peripheral)] Onset: 08-27-2005 Resolved: 12-14-2014 12-14-2014 Episodic Other lower respiratory disease (20 sources) Finding of respiration; Translations: [Other forms of dyspnea] Onset: 08-06-2005 Resolved: 12-13-2013 12-13-2013 Episodic Other nutritional; endocrine; and metabolic disorders (20 sources) Morbid obesity; Translations: [Morbid obesity] Onset: 01-28-2006 Resolved: 12-13-2013 12-13-2013 Chronic Comment on above: Added by Problem Cici Baugh; 2012-10-30; Moved to [facility] Feb 05 2013 9:10PM; Other nutritional; endocrine; and metabolic disorders (20 sources) Body mass index 40+ - severely obese; Translations: [Body mass index (BMI) 45.0-49.9, adult] Onset: 10-11-2013 Resolved: 03-19-2023 02-09-2015 Chronic Other nutritional; endocrine; and metabolic disorders (20 sources) Abnormal weight gain; Translations: [Abnormal weight gain] Onset: 08-06-2005 Resolved: 12-13-2013 12-13-2013 Episodic Residual codes; unclassified (20 sources) Sleep apnea; Translations: [Sleep apnea, unspecified] Onset: 01-28-2006 Resolved: 12-14-2014 12-14-2014 Chronic Residual codes; unclassified (20 sources) Sleep deprivation; Translations: [Sleep deprivation] Onset: 05-12-2019 05-12-2019 Episodic Residual codes; unclassified (20 sources) Disturbance of consciousness; Translations: [Transient alteration of awareness] Onset: 08-06-2005 Resolved: 12-13-2013 12-13-2013 Episodic Residual codes; unclassified (20 sources) Altered mental status; Translations: [Altered mental status, unspecified] Onset: 01-08-2013 Resolved: 12-13-2013 03-05-2021 Episodic Varicose veins of lower extremity (20 sources) Skin ulcer; Translations: [Varicose veins of unspecified lower extremity with ulcer of unspecified site] Onset: 01-16-2016 Resolved: 06-17-2016 06-17-2016 Episodic NEGATED: Highlighted row has not occurred!Residual codes; unclassified (17 sources) Disease Episodic Results Test Name Value Interpretation Reference Range Facility [facility] 12[facility]22[facility] JOSE ABDUL ([id number]) 1980 F Date Time Provider Department 12/22/23 SHERIF THAKUR INTWS During your visit today, we recorded the following information about you: Annie Brand RN 12/22/2023 1:33 PM Signed Pharmacist @ [facility] calling to clarify orders for Furosemide and Potassium. She states patient has scripts for both Furosemide 40 mg daily and 20 mg every other day. She also has scripts for Potassium Chloride 20 mEq daily and 10 mEq daily. Pharmacist asking if patient is to be taking both? Patient scheduled for ER follow up on 01/01/24 with PCP. Please review and advise. RODRÍGUEZ Lopez Joy, APRN.MANAGING DIRECTOR ATLAS 12/22/2023 1:41 PM Signed She is supposed to be taking both short term. Is there a way to get her in earlier then in 10 days? Thank you Elsie Kaplan APRN.MANAGING DIRECTOR ATLAS María Avila MA 12/22/2023 1:49 PM Signed Pharmacist notified. Allergies As of Date: 12/22/2023 Noted Allergy Reaction BEE STING 02/28/2023 10 - Anaphylaxis DILANTIN (PHENYTOIN SODIUM EXTEND*01/28/2006 Date Reviewed: 11/18/2023 Reviewed by: Aaliyah Gonzalez MA - Fully Assessed Reason for Visit: Medication Question [1478] Prescriptions as of 12/22/2023 - furosemide (LASIX) 40 mg tablet Take 1 tablet by mouth once daily. - potassium chloride 20 mEq TbER Take 1 tablet by mouth once daily. - ammonium lactate (LAC-HYDRIN) 12 % cream APPLY TOPICALLY TO AFFECTED AREA(S) ON LEGS AT BEDTIME - Leg Brace (TRUE CMFT KNEE COMPRESSION) misc 1 Each once daily. - furosemide (LASIX) 20 mg tablet TAKE ONE TABLET BY MOUTH EVERY OTHER DAY FOR LYMPHEDEMA - potassium chloride ER (KLOR-CON M10) 10 mEq tablet Take 1 tablet by mouth once daily. - multivitamin-ferrous fumarate-folic acid (CERTAVITE-ANTIOXIDAN T) Take 1 tablet by mouth once daily. - fluticasone (FLONASE) 50 mcg/actuation nasal spray INSTILL 2 SPRAYS IN EACH NOSTRIL DAILY - Xbbbz-9-PWS-EPA-Fish Oil 1,000 mg (120 mg-180 mg) cap Take 1 capsule by mouth once daily. - EPINEPHrine (EPIPEN) 0.3 mg/0.3 mL auto-injector INJECT 1 PEN INTO LATERAL THIGH DIRECTED FOR ALLERGIC REACTIONS TO BEE/WASP STINGS MAY REPEAT IN 5-15 MINUTES IF SYMPTOMS PERSIST * *STAFF REORDER, 4 DAYS IN ADVANCE* - levothyroxine (SYNTHROID) 100 mcg tablet take one tablet by mouth daily one hour before breakfast - DULERA 100-5 mcg/actuation inhaler INHALE 2 PUFFS BY MOUTH TWICE DAILY ( INSTRUCTED) - nystatin (NYAMYC) powder APPLY TOPICALLY TWICE DAILY TO AFFECTED AREA(S) ON ABDOMINAL FOLDS - OYSTER SHELL CALCIUM-VITAMIN D 500 mg-5 mcg (200 unit) per tablet take one tablet by mouth twice daily with meals - clotrimazole (LOTRIMIN) 1 % cream APPLY TOPICALLY TO AFFECTED AREA(S) ON BILATERAL GROIN TWICE DAILY - albuterol HFA (VENTOLIN HFA) 90 mcg/actuation inhaler Inhale 2 Puffs as instructed every 4 hours as needed for wheezing/shortness of breath. - naproxen (NAPROSYN) 500 mg tablet TAKE ONE TABLET BY MOUTH TWICE DAILY NEEDED FOR PAIN/INFLAMMATION OF KNEE *TAKE WITH FOOD* *STAFF REORDER, 4 DAYS IN ADVANCE* - acetaminophen (TYLENOL EXTRA STRENGTH) 500 mg tablet Take 2 tablets by mouth every 8 hours as needed for pain (For knee pain). - MEDICAL SUPPLY Lymphedema massage therapy - IRAIDA 0.35 mg tablet - Gauze Bandage 2 X 2 bndg Apply 1 application to affected area twice daily. - Desogestrel-Ethinyl Estradiol (APRI) 0.15-0.03 mg per tablet Take 1 tablet by mouth once daily. - diphenhydrAMINE (BENADRYL) 25 mg tablet Take 1 tablet by mouth every 6 hours as needed. - cetirizine (ZYRTEC) 10 mg tablet Take 1 tablet by mouth once daily. - COMPOUNDED PRESCRIPTION 1 Each once daily. Custom 20-30mmHg knee high compression stockings. Dx: Recurrent cellulitis legs and morbid obesity.Lymph Edema 8am for 2 pairs per year - COMPOUNDED PRESCRIPTION Pt's body checks to be completed once weekly during the day. - COMPOUNDED PRESCRIPTION Weight check q Sun at 8pm and q Fri at 4pm Dx:Q87.1 Problem List As Of Date 12/22/2023 Noted Resolved Other malaise and fatigue [R53.81, R53.83] 08/06/2005 12/13/2013 Other dyspnea and respiratory abnormality [R06.*08/06/2005 12/13/2013 Other alteration of consciousness [R40.4] 08/06/2005 12/13/2013 WEIGHT GAIN, ABNORMAL [R63.5] 08/06/2005 12/13/2013 Prader-Willi syndrome [Q87.11] 08/27/2005 VENOUS INSUFFICIENCY [I87.2] 08/27/2005 12/14/2014 Mild intermittent asthma without complication [* Allergic rhinitis [J30.9] SLEEP APNEA [G47.30] 01/28/2006 12/14/2014 HYPOTHYROIDISM NOS [E03.9] 01/28/2006 12/14/2014 Morbid obesity (HCC) [E66.01] 01/28/2006 12/13/2013 Open wound of knee, leg (except thigh), and ank*12/04/2009 12/13/2013 Amenorrhea [N91.2] 06/18/2011 12/07/2015 Vitamin D deficiency [E55.9] 11/05/2011 Mental status change [R41.82] 01/08/2013 12/13/2013 Other lymphedema [I89.0] (more content not included)... Normal [facility] .Auto Diffon 12-21-2023 Basophil, Absolute 0.0 10 3/mcL Normal 0.0-0.2 [facility] Comment on above: Performed By: #### C BC, ANEU, ADIFF, GFR, PBNP, BMP, TROPHS, MG, MDW #### [address] [address] Basophils/100 WBC (Bld) 0.3 % Normal 0.0-2.5 [facility] Comment on above: Performed By: #### C BC, ANEU, ADIFF, GFR, PBNP, BMP, TROPHS, MG, MDW #### [address] [address] Eosinophil, Absolute 0.2 10 3/mcL Normal 0.0-0.7 [facility] Comment on above: Performed By: #### C BC, ANEU, ADIFF, GFR, PBNP, BMP, TROPHS, MG, MDW #### [address] [address] Eosinophils/100 WBC (Bld) 1.9 % Normal 0.0-7.0 [facility] Comment on above: Performed By: #### C BC, ANEU, ADIFF, GFR, PBNP, BMP, TROPHS, MG, MDW #### [address] [address] Lymphocyte, Absolute 2.0 10 3/mcL Normal 0.9-4.3 [facility] Comment on above: Performed By: #### C BC, ANEU, ADIFF, GFR, PBNP, BMP, TROPHS, MG, MDW #### [address] [address] Lymphocytes/100 WBC (Bld) 17.4 % Low 20.0-40.0 [facility] Comment on above: Performed By: #### C BC, ANEU, ADIFF, GFR, PBNP, BMP, TROPHS, MG, MDW #### [address] [address] Monocyte, Absolute 1.2 10 3/mcL Normal 0.1-1.4 [facility] Comment on above: Performed By: #### C BC, ANEU, ADIFF, GFR, PBNP, BMP, TROPHS, MG, MDW #### [address] [address] Monocytes/100 WBC (Bld) 10.5 % Normal 2.0-13.0 [facility] Comment on above: Performed By: #### C BC, ANEU, ADIFF, GFR, PBNP, BMP, TROPHS, MG, W #### [address] [address] Neutrophils/100 WBC (Bld) 69.9 % Normal 50.0-75.0 [facility] Comment on above: Performed By: #### C BC, ANEU, ADIFF, GFR, PBNP, BMP, TROPHS, MG, KYLIE #### [address] [address] .GFRon 12-21-2023 GFR 169 ml/min/1.73sqm Normal [facility] Comment on above: Result Comment: GFR Population mean for , Non- Americans Ages 20-29 = 116 mL/min/1.73 sq.m. Ages 30-39 = 107 mL/min/1.73 sq.m. Ages 40-49 = 99 mL/min/1.73 sq.m. Ages 50-59 = 93 mL/min/1.73 sq.m. Ages 60-69 = 85 mL/min/1.73 sq.m. Ages 70+ = 75 mL/min/1.73 sq.m. Chronic Kidney Disease: Less than 60 mL/min/1.73 square meters End Stage Renal Disease: Less than 15 mL/min/1.73 square meters Performed By: #### C BC, ANEU, ADIFF, GFR, PBNP, BMP, TROPHS, MG, MDW #### [address] [address] GFR Non- 139 ml/min/1.73sqm Normal [facility] Comment on above: Result Comment: GFR Population mean for , Non- Americans Ages 20-29 = 116 mL/min/1.73 sq.m. Ages 30-39 = 107 mL/min/1.73 sq.m. Ages 40-49 = 99 mL/min/1.73 sq.m. Ages 50-59 = 93 mL/min/1.73 sq.m. Ages 60-69 = 85 mL/min/1.73 sq.m. Ages 70+ = 75 mL/min/1.73 sq.m. Chronic Kidney Disease: Less than 60 mL/min/1.73 square meters End Stage Renal Disease: Less than 15 mL/min/1.73 square meters Performed By: #### C BC, ANEU, ADIFF, GFR, PBNP, BMP, TROPHS, MG, MDW #### [address] [address] .MDWon 12-21-2023 Monocyte Distribution Width 20.26 High 0.00-20.00 [facility] Comment on above: Result Comment: For adults in ED, MDW>20.0 may be associated with a higher risk of sepsis during the first 12hrs of hospital admission Performed By: #### C BC, ANEU, ADIFF, GFR, PBNP, BMP, TROPHS, MG, MDW #### [address] [address] .NEUABSon 12-21-2023 Neutrophil, Absolute 8.1 10 3/mcL Normal 2.3-8.1 [facility] Comment on above: Performed By: #### C BC, ANEU, ADIFF, GFR, PBNP, BMP, TROPHS, MG, MDW #### [address] [address] BMPon 12-21-2023 BUN/Creatinine Ratio 31 ratio High 7-27 [facility] Comment on above: Performed By: #### C BC, ANEU, ADIFF, GFR, PBNP, BMP, TROPHS, MG, MDW #### [address] [address] Calcium [Mass/Vol] 9.1 mg/dL Normal 8.4-10.2 [facility] Comment on above: Performed By: #### C BC, ANEU, ADIFF, GFR, PBNP, BMP, TROPHS, MG, KYLIE #### [address] [address] Chloride [Moles/Vol] 104 mmol/L Normal 98-107 [facility] Comment on above: Performed By: #### C BC, ANEU, ADIFF, GFR, PBNP, BMP, TROPHS, MG, KYLIE #### [address] [address] CO2 [Moles/Vol] 34 mmol/L High 22-29 [facility] Comment on above: Performed By: #### C BC, ANEU, ADIFF, GFR, PBNP, BMP, TROPHS, MG, KYLIE #### [address] [address] Creatinine [Mass/Vol] 0.49 mg/dL Low 0.55-1.02 [facility] Comment on above: Result Comment: Test ing performed on Siemens Dimension EXL analyzer using a modified kinetic Melanie technique. Performed By: #### C BC, ANEU, ADIFF, GFR, PBNP, BMP, TROPHS, MG, KYLIE #### [address] [address] Electrolyte Balance 1.0 mEq/L Low 4.0-15.0 [facility] Comment on above: Performed By: #### C BC, ANEU, ADIFF, GFR, PBNP, BMP, TROPHS, MG, KYLIE #### [address] [address] Glucose [Mass/Vol] 96 mg/dL Normal 70-105 [facility] Comment on above: Performed By: #### C BC, ANEU, ADIFF, GFR, PBNP, BMP, TROPHS, MG, KYLIE #### [address] [address] Potassium [Moles/Vol] 4.7 mmol/L Normal 3.5-5.1 [facility] Comment on above: Performed By: #### C BC, ANEU, ADIFF, GFR, PBNP, BMP, TROPHS, MG, MDW #### [place] [address] Sodium [Moles/Vol] 139 mmol/L Normal 136-145 [facility] Comment on above: Performed By: #### C BC, ANEU, ADIFF, GFR, PBNP, BMP, TROPHS, MG, MDW #### [place] [address] Urea nitrogen [Mass/Vol] 15 mg/dL Normal 7-18 [facility] Comment on above: Performed By: #### C BC, ANEU, ADIFF, GFR, PBNP, BMP, TROPHS, MG, MDW #### [place] [address] CBCon 12-21-2023 Erythrocyte distribution width (RBC) [Ratio] 14.4 % Normal 11.5-15.5 [facility] Comment on above: Performed By: #### C BC, ANEU, ADIFF, GFR, PBNP, BMP, TROPHS, MG, MDW #### [place] [address] Hematocrit (Bld) [Volume fraction] 39.3 % Normal 34.0-46.0 [facility] Comment on above: Performed By: #### C BC, ANEU, ADIFF, GFR, PBNP, BMP, TROPHS, MG, MDW #### [place] [address] Hgb 12.6 G/dL Normal 12.0-16.0 [facility] Comment on above: Performed By: #### C BC, ANEU, ADIFF, GFR, PBNP, BMP, TROPHS, MG, MDW #### [place] [address] MCH (RBC) [Entitic mass] 32.2 pg Normal 27.0-33.0 [facility] Comment on above: Performed By: #### C BC, ANEU, ADIFF, GFR, PBNP, BMP, TROPHS, MG, MDW #### [address] [address] MCHC 32.1 G/dL Normal 32.0-36.0 [facility] Comment on above: Performed By: #### C BC, ANEU, ADIFF, GFR, PBNP, BMP, TROPHS, MG, MDW #### [address] [address] MCV (RBC) [Entitic vol] 100.2 fL High 80.0-99.0 [facility] Comment on above: Performed By: #### C BC, ANEU, ADIFF, GFR, PBNP, BMP, TROPHS, MG, MDW #### [address] [address] Platelet 147 10 3/mcL Low 150-450 [facility] Comment on above: Performed By: #### C BC, ANEU, ADIFF, GFR, PBNP, BMP, TROPHS, MG, MDW #### [address] [address] Platelet mean volume (Bld) [Entitic vol] 8.8 fL Normal 6.6-10.5 [facility] Comment on above: Performed By: #### C BC, ANEU, ADIFF, GFR, PBNP, BMP, TROPHS, MG, MDW #### [address] [address] RBC 3.92 10 6/mcL Low 4.10-5.30 [facility] Comment on above: Performed By: #### C BC, ANEU, ADIFF, GFR, PBNP, BMP, TROPHS, MG, MDW #### [address] [address] WBC 11.6 10 3/mcL High 4.5-10.8 [facility] Comment on above: Performed By: #### C BC, ANEU, ADIFF, GFR, PBNP, BMP, TROPHS, MG, MDW #### [address] [address] LABORATORYOrdered By: SYSTEM SYSTEM on 12-21-2023 Troponin I.cardiac DL <= 0.01 ng/mL [Mass/Vol] 22 ng/L Normal 0 - 51 ng/L AO ADM SS Comment on above: Interpretive Data: H igh Sensitive Troponin I Reference Ranges: Female: 0-51 ng/L Male: 0-76 ng/L Testing performed on [employer] using a homogeneous sandwich chemiluminescent immunoassay based on RocketOz technology. Basophils (Bld) [#/Vol] 0.0 103/mcL Normal 0.0 - 0.2 10^3/mcL AO Workflow SS Basophils/100 WBC (Bld) 0.3 % Normal 0.0 - 2.5 % AO Workflow SS Calcium [Mass/Vol] 9.1 mg/dL Normal 8.4 - 10. 2 mg/dL AO ADM SS Chloride [Moles/Vol] 104 mmol/L Normal 98 - 10 7 mmol/L AO ADM SS CO2 [Moles/Vol] 34 mmol/L High 22 - 29 mmol/L AO ADM SS Creatinine [Mass/Vol] 0.49 mg/dL Low 0.55 - 1.02 mg/dL AO ADM SS Comment on above: Interpretive Data: T esting performed on Siemens Dimension EXL analyzer using a modified kinetic Melanie technique. Electrolyte Balance 1.0 mEq/L Low 4.0 - 15 .0 mEq/L AO ADM SS Eosinophil, Absolute 0.2 103/mcL Normal 0.0 - 0 .7 10^3/mcL AO Workflow SS Eosinophils/100 WBC (Bld) 1.9 % Normal 0.0 - 7.0 % AO Workflow SS Erythrocyte distribution width (RBC) [Ratio] 14.4 % Normal 11.5 - 15.5 % AO Workflow SS GFR/1.73 sq M.predicted among blacks MDRD (S/P/Bld) [Vol rate/Area] 169 ml/min/1.73sqm Invalid Interpretation Code AO Chemistry S Comment on above: Interpretive Data: GFR Population mean for , Non- Americans Ages 20-29 = 116 mL/min/1.73 sq.m. Ages 30-39 = 107 mL/min/1.73 sq.m. Ages 40-49 = 99 mL/min/1.73 sq.m. Ages 50-59 = 93 mL/min/1.73 sq.m. Ages 60-69 = 85 mL/min/1.73 sq.m. Ages 70+ = 75 mL/min/1.73 sq.m. Chronic Kidney Disease: Less than 60 mL/min/1.73 square meters End Stage Renal Disease: Less than 15 mL/min/1.73 square meters GFR/1.73 sq M.predicted among non-blacks MDRD (S/P/Bld) [Vol rate/Area] 139 ml/min/1.73sqm Invalid Interpretation Code AO Chemistry S Comment on above: Interpretive Data: GFR Population mean for , Non- Americans Ages 20-29 = 116 mL/min/1.73 sq.m. Ages 30-39 = 107 mL/min/1.73 sq.m. Ages 40-49 = 99 mL/min/1.73 sq.m. Ages 50-59 = 93 mL/min/1.73 sq.m. Ages 60-69 = 85 mL/min/1.73 sq.m. Ages 70+ = 75 mL/min/1.73 sq.m. Chronic Kidney Disease: Less than 60 mL/min/1.73 square meters End Stage Renal Disease: Less than 15 mL/min/1.73 square meters Glucose [Mass/Vol] 96 mg/dL Normal 70 - 105 mg/dL AO ADM SS Hematocrit (Bld) [Volume fraction] 39.3 % Normal 34.0 - 46.0 % AO Workflow SS Hemoglobin (Bld) [Mass/Vol] 12.6 G/dL Normal 12.0 - 16.0 G/dL AO Workflow SS Lymphocytes (Bld) [#/Vol] 2.0 103/mcL Normal 0.9 - 4.3 10^3/mcL AO Workflow SS Lymphocytes/100 WBC (Bld) 17.4 % Low 20.0 - 40.0 % AO Workflow SS Magnesium [Mass/Vol] 1.9 mg/dL Normal 1.8 - 2 .4 mg/dL AO ADM SS MCH (RBC) [Entitic mass] 32.2 pg Normal 27.0 - 33.0 pg AO Workflow SS MCHC 32.1 G/dL Normal 32.0 - 36.0 G/dL AO Workflow SS MCV (RBC) [Entitic vol] 100.2 fL High 80.0 - 99.0 fL AO Workflow SS Monocyte distribution width Auto (Bld) [Entitic vol] 20.26 1 High 0.00 - 20.00 AO Workflow SS Comment on above: Result Comment: For adults in ED, MDW>20.0 may be associated with a higher risk of sepsis during the first 12hrs of hospital admission Monocytes (Bld) [#/Vol] 1.2 103/mcL Normal 0.1 - 1.4 10^3/mcL AO Workflow SS Monocytes/100 WBC (Bld) 10.5 % Normal 2.0 - 13.0 % AO Workflow SS Natriuretic peptide.B prohormone N-Terminal [Mass/Vol] 449 pg/mL High 0 - 125 pg/mL AO ADM SS Comment on above: Interpretive Data: N T-proBNP results of less than 300 pg/mL effectively rules out acute congestive heart failure with 99% negative predictive value. Neutrophils (Bld) [#/Vol] 8.1 103/mcL Normal 2.3 - 8.1 10^3/mcL AO Workflow SS Neutrophils/100 WBC (Bld) 69.9 % Normal 50.0 - 75.0 % AO Workflow SS Platelet mean volume (Bld) [Entitic vol] 8.8 fL Normal 6.6 - 10.5 fL AO Workflow SS Platelets (Bld) [#/Vol] 147 103/mcL Low 150 - 450 10^3/mcL AO Workflow SS Potassium [Moles/Vol] 4.7 mmol/L Normal 3.5 - 5.1 mmol/L AO ADM SS RBC (Bld) [#/Vol] 3.92 106/mcL Low 4.10 - 5.3 0 10^6/mcL AO Workflow SS Sodium [Moles/Vol] 139 mmol/L Normal 136 - 145 mmol/L AO ADM SS Troponin I.cardiac DL <= 0.01 ng/mL [Mass/Vol] 20 ng/L Normal 0 - 51 ng/L AO ADM SS Comment on above: Interpretive Data: H igh Sensitive Troponin I Reference Ranges: Female: 0-51 ng/L Male: 0-76 ng/L Testing performed on Xlumena using a homogeneous sandwich chemiluminescent immunoassay based on RocketOz technology. Urea nitrogen [Mass/Vol] 15 mg/dL Normal 7 - 18 mg/dL AO ADM SS Urea nitrogen/Creatinine [Mass ratio] 31 ratio High 7 - 27 ratio AO ADM SS WBC (Bld) [#/Vol] 11.6 103/mcL High 4.5 - 10.8 10^3/mcL AO Workflow SS MGon 12-21-2023 Magnesium [Mass/Vol] 1.9 mg/dL Normal 1.8-2.4 [facility] Comment on above: Performed By: #### C BC, ANEU, ADIFF, GFR, PBNP, BMP, TROPHS, KYLIE SHEN #### [address] [address] PBNPon 12-21-2023 Natriuretic peptide B (Bld) [Mass/Vol] 449 pg/mL High 0-125 [facility] Comment on above: Result Comment: NT-p roBNP results of less than 300 pg/mL effectively rules out acute congestive heart failure with 99% negative predictive value. Performed By: #### C BC, ANEU, ADIFF, GFR, PBNP, BMP, TROPHS, KYLIE SHEN #### [address] [address] [facility] 12-21-2023 High Sensitivity Troponin I 22 ng/L Normal 0-51 [facility] Comment on above: Result Comment: High Sensitive Troponin I Reference Ranges: Female: 0-51 ng/L Male: 0-76 ng/L Testing performed on Xlumena using a homogeneous sandwich chemiluminescent immunoassay based on RocketOz technology. Performed By: #### C BC, ANEU, ADIFF, GFR, PBNP, BMP, TROPHS, KYLIE SHEN #### [address] [address] High Sensitivity Troponin I 20 ng/L Normal 0-51 [facility] Comment on above: Result Comment: High Sensitive Troponin I Reference Ranges: Female: 0-51 ng/L Male: 0-76 ng/L Testing performed on Dimension EXL using a homogeneous sandwich chemiluminescent immunoassay based on RocketOz technology. Performed By: #### C BC, ANEU, ADIFF, GFR, PBNP, BMP, TROPHS, MGKYLIE #### [address] [address] XR CHEST 1 VIEWon 12-21-2023 XR CHEST 1 VIEW ORIGINAL EXAMINATION: ONE XRAY VIEW OF THE CHEST12/21/2023 3:18 pm COMPARISON: None HISTORY: ORDERING SYSTEM PROVIDED HISTORY: Reason for Exam: Chest Pain FINDINGS: Exam limited by habitus. The heart is enlarged. There are bilateral perihilar airspace opacities and streaky interstitial markings extending toward the periphery. No pleural effusion or visible pneumothorax. No acute skeletal abnormality. IMPRESSION: Cardiomegaly with findings most consistent with moderate pulmonary edema. Superimposed infectious process not excluded. Imaging follow-up to resolution is recommended. I have personally reviewed the images of this examination and agree with the resident's findings and interpretation. Interpreted by: Yeyo Wesley Preliminary Report By: Matt Rodriguez Electronically signed By Yeyo Wesley Dictated Date: 12/21/2023 3:23:59 PM Prelim Date: 12/21/2023 3:26:53 PM Sign Date: 12/21/2023 3:28:25 PM Ordering Provider: TABATHA PAGE [facility] 12-18-2023 [facility] Telephone (OffSite VISION) JOSE ABDUL ([id number]) 1980 F Date Time Provider Department 12/18/23 SHERIF THAKUR [facility] During your visit today, we recorded the following information about you: Erendira Stewart LPN 12/18/2023 2:27 PM Signed Shobah from [facility] states there were medications sent for pt yesterday Rah Turner RN 12/22/2023 9:49 AM Signed [facility]- phoned to report patient was seen in [place] [facility] on Friday12-21-23, with SOB. ER gave patient IV lasix and sent patient home. Reports patient is having stress in retirement with another housemate, which is causing patient anxiety, and this was part of the problem, but patient has also been having problems with edema. This nurse phoned Shobha- caregiver @ [facility] to schedule ER f/u appt, and noted in 12-17-23 encounter, [employer] had ordered potassium 20 mg daily, and lasix 40 mg daily, until patient is seen. Asked Shobha how patient is doing on this dose. Shobha reports patient never received the medication, b/c it was sent to the wrong pharmacy, should have been sent to [facility]. Shobha did call pcp to report this (see message below), but never received the medication. Reports even if the medication is sent to [facility] today- they still will not receive it until Fri. Pended medications for [facility]. Please send geovanny. Shobha reports patient is doing fine today- and they are working on the problem with the housemate. Scheduled patient hosp f/u appt for 01-01-24. Elsie Kaplan APRN.OBED 12/22/2023 10:58 AM Signed Prescription Resent. Thank you Elsie Kaplan APRN.Teresa Foster RN 12/22/2023 11:35 AM Signed Called and left a voicemail for the [facility] to call back and ask for a nurse to receive the providers message. RODRÍGUEZ Hua Linda M, LPN 12/22/2023 1:23 PM Signed Call returned by Shobha message given as provided. She voices understanding. Allergies As of Date: 12/18/2023 Noted Allergy Reaction BEE STING 02/28/2023 10 - Anaphylaxis DILANTIN (PHENYTOIN SODIUM EXTEND*01/28/2006 Date Reviewed: 11/18/2023 Reviewed by: Aaliyah Gonzalez MA - Fully Assessed Reason for Visit: Medication Problem [65] Order(s):furosemide (LASIX) 40 mg tabletTake 1 tablet by mouth once daily.Disp: 7 tabletRfl: 0 potassium chloride 20 mEq TbERTake 1 tablet by mouth once daily.Disp: 7 tabletRfl: 0 Prescriptions as of 12/22/2023 - furosemide (LASIX) 40 mg tablet Take 1 tablet by mouth once daily. - potassium chloride 20 mEq TbER Take 1 tablet by mouth once daily. - ammonium lactate (LAC-HYDRIN) 12 % cream APPLY TOPICALLY TO AFFECTED AREA(S) ON LEGS AT BEDTIME - Leg Brace (TRUE CMFT KNEE COMPRESSION) misc 1 Each once daily. - furosemide (LASIX) 20 mg tablet TAKE ONE TABLET BY MOUTH EVERY OTHER DAY FOR LYMPHEDEMA - potassium chloride ER (KLOR-CON M10) 10 mEq tablet Take 1 tablet by mouth once daily. - multivitamin-ferrous fumarate-folic acid (CERTAVITE-ANTIOXIDAN T) Take 1 tablet by mouth once daily. - fluticasone (FLONASE) 50 mcg/actuation nasal spray INSTILL 2 SPRAYS IN EACH NOSTRIL DAILY - Pzmwf-6-TWE-EPA-Fish Oil 1,000 mg (120 mg-180 mg) cap Take 1 capsule by mouth once daily. - EPINEPHrine (EPIPEN) 0.3 mg/0.3 mL auto-injector INJECT 1 PEN INTO LATERAL THIGH DIRECTED FOR ALLERGIC REACTIONS TO BEE/WASP STINGS MAY REPEAT IN 5-15 MINUTES IF SYMPTOMS PERSIST * *STAFF REORDER, 4 DAYS IN ADVANCE* - levothyroxine (SYNTHROID) 100 mcg tablet take one tablet by mouth daily one hour before breakfast - DULERA 100-5 mcg/actuation inhaler INHALE 2 PUFFS BY MOUTH TWICE DAILY ( INSTRUCTED) - nystatin (NYAMYC) powder APPLY TOPICALLY TWICE DAILY TO AFFECTED AREA(S) ON ABDOMINAL FOLDS - OYSTER SHELL CALCIUM-VITAMIN D 500 mg-5 mcg (200 unit) per tablet take one tablet by mouth twice daily with meals - clotrimazole (LOTRIMIN) 1 % cream APPLY TOPICALLY TO AFFECTED AREA(S) ON BILATERAL GROIN TWICE DAILY - albuterol HFA (VENTOLIN HFA) 90 mcg/actuation inhaler Inhale 2 Puffs as instructed every 4 hours as needed for wheezing/shortness of breath. - naproxen (NAPROSYN) 500 mg tablet TAKE ONE TABLET BY MOUTH TWICE DAILY NEEDED FOR PAIN/INFLAMMATION OF KNEE *TAKE WITH FOOD* *STAFF REORDER, 4 DAYS IN ADVANCE* - acetaminophen (TYLENOL EXTRA STRENGTH) 500 mg tablet Take 2 tablets by mouth every 8 hours as needed for pain (For knee pain). - MEDICAL SUPPLY Lymphedema massage therapy - IRAIDA 0.35 mg tablet - Gauze Bandage 2 X 2 bndg Apply 1 application to affected area twice daily. - Desogestrel-Ethinyl Estradiol (APRI) 0.15-0.03 mg per tablet Take 1 tablet by mouth once daily. - diphenhydrAMINE (BENADRYL) 25 mg tablet Take 1 tablet by mouth every 6 hours as needed. - cetirizine (ZYRTEC) 10 mg tablet Take 1 tablet by mouth once daily. - COMPOUNDED PRESCRIPTION 1 Each once (more content not included)... [facility]INTMWS[facility] CHANTELLJOSE Hanna ([id number]) 1980 F Date Time Provider Department 12/17/23 SHERIF THAKUR INTMWS During your visit today, we recorded the following information about you: Rah Turner RN 12/17/2023 9:13 AM Addendum Clarence- [facility]- phoned with patient update: Reports pcp increased lasix and potassium for 3 days, for weight gain. Pt completed the increased doses on Friday. Pt returned to previous dose on , yesterday. Yesterday swelling was down, pt felt better, and weight was 277 #. This morning weight is up 6 lbs, to 283 #, and the weight has increased a little bit. Please advise and phone Clarence with reply: [phone] Elsie Kaplan APRN.OBED 12/17/2023 1:23 PM Signed Patient needs to be seen to evaluate why this is continuing to occur. Can increase lasix to 40mg and the potassium to 20mg both daily until seen. Thank you Elsie Kaplan APRN.Lillie Adame RN 12/17/2023 2:27 PM Signed Clarence called and notified of below , Clarence voices understanding. Clarence is going to pass this along to retirement. Clarence asking if new scripts can be sent to [facility]? Please review and advise, RODRÍGUEZ Carnes Joy, APRN.OBED 12/17/2023 4:43 PM Signed New scripts sent Elsie Kaplan APRN.OBED Allergies As of Date: 12/17/2023 Noted Allergy Reaction BEE STING 02/28/2023 10 - Anaphylaxis DILANTIN (PHENYTOIN SODIUM EXTEND*01/28/2006 Date Reviewed: 11/18/2023 Reviewed by: Aaliyah Gonzalez MA - Fully Assessed Reason for Visit: Patient Update [1234] Order(s):potassium chloride 20 mEq TbERTake 1 tablet by mouth once daily.Disp: 7 tabletRfl: 0 furosemide (LASIX) 40 mg tabletTake 1 tablet by mouth once daily.Disp: 7 tabletRfl: 0 Prescriptions as of 12/17/2023 - potassium chloride 20 mEq TbER Take 1 tablet by mouth once daily. - furosemide (LASIX) 40 mg tablet Take 1 tablet by mouth once daily. - ammonium lactate (LAC-HYDRIN) 12 % cream APPLY TOPICALLY TO AFFECTED AREA(S) ON LEGS AT BEDTIME - Leg Brace (TRUE CMFT KNEE COMPRESSION) misc 1 Each once daily. - furosemide (LASIX) 20 mg tablet TAKE ONE TABLET BY MOUTH EVERY OTHER DAY FOR LYMPHEDEMA - potassium chloride ER (KLOR-CON M10) 10 mEq tablet Take 1 tablet by mouth once daily. - multivitamin-ferrous fumarate-folic acid (CERTAVITE-ANTIOXIDAN T) Take 1 tablet by mouth once daily. - fluticasone (FLONASE) 50 mcg/actuation nasal spray INSTILL 2 SPRAYS IN EACH NOSTRIL DAILY - Wzzar-3-HZH-EPA-Fish Oil 1,000 mg (120 mg-180 mg) cap Take 1 capsule by mouth once daily. - EPINEPHrine (EPIPEN) 0.3 mg/0.3 mL auto-injector INJECT 1 PEN INTO LATERAL THIGH DIRECTED FOR ALLERGIC REACTIONS TO BEE/WASP STINGS MAY REPEAT IN 5-15 MINUTES IF SYMPTOMS PERSIST * *STAFF REORDER, 4 DAYS IN ADVANCE* - levothyroxine (SYNTHROID) 100 mcg tablet take one tablet by mouth daily one hour before breakfast - DULERA 100-5 mcg/actuation inhaler INHALE 2 PUFFS BY MOUTH TWICE DAILY ( INSTRUCTED) - nystatin (NYAMYC) powder APPLY TOPICALLY TWICE DAILY TO AFFECTED AREA(S) ON ABDOMINAL FOLDS - OYSTER SHELL CALCIUM-VITAMIN D 500 mg-5 mcg (200 unit) per tablet take one tablet by mouth twice daily with meals - clotrimazole (LOTRIMIN) 1 % cream APPLY TOPICALLY TO AFFECTED AREA(S) ON BILATERAL GROIN TWICE DAILY - albuterol HFA (VENTOLIN HFA) 90 mcg/actuation inhaler Inhale 2 Puffs as instructed every 4 hours as needed for wheezing/shortness of breath. - naproxen (NAPROSYN) 500 mg tablet TAKE ONE TABLET BY MOUTH TWICE DAILY NEEDED FOR PAIN/INFLAMMATION OF KNEE *TAKE WITH FOOD* *STAFF REORDER, 4 DAYS IN ADVANCE* - acetaminophen (TYLENOL EXTRA STRENGTH) 500 mg tablet Take 2 tablets by mouth every 8 hours as needed for pain (For knee pain). - MEDICAL SUPPLY Lymphedema massage therapy - IRAIDA 0.35 mg tablet - Gauze Bandage 2 X 2 bndg Apply 1 application to affected area twice daily. - Desogestrel-Ethinyl Estradiol (APRI) 0.15-0.03 mg per tablet Take 1 tablet by mouth once daily. - diphenhydrAMINE (BENADRYL) 25 mg tablet Take 1 tablet by mouth every 6 hours as needed. - cetirizine (ZYRTEC) 10 mg tablet Take 1 tablet by mouth once daily. - COMPOUNDED PRESCRIPTION 1 Each once daily. Custom 20-30mmHg knee high compression stockings. Dx: Recurrent cellulitis legs and morbid obesity.Lymph Edema 8am for 2 pairs per year - COMPOUNDED PRESCRIPTION Pt's body checks to be completed once weekly during the day. - COMPOUNDED PRESCRIPTION Weight check q Sun at 8pm and q Fri at 4pm Dx:Q87.1 Problem List As Of Date 12/17/2023 Noted Resolved Other malaise and fatigue [R53.81, R53.83] 08/06/2005 12/13/2013 Other dyspnea and respiratory abnormality [R06.*08/06/2005 12/13/2013 Other alteration of consciousness [R40.4] 08/06/2005 12/13/2013 WEIGHT GAIN, ABNORMAL [R63.5] 08/06/2005 12/13/2013 Prader-Willi syndrome [Q87.11] (more content not included)... Normal [facility] 12-12-2023 LOU Telephone (INTMWS) JOSE ABDUL ([id number]) 1980 F Date Time Provider Department 12/12/23 SHERIF THAKUR During your visit today, we recorded the following information about you: Candelaria Ball LPN 12/12/2023 8:10 AM Signed Clarence from [facility] calling patient weight this morning was 286 pounds. She has increased edema aaron legs, slightly unsteady gait, vitals good, slight shortness of breath with exertion. He said her Furosemide 20 mg one tablet every other day, wearing her compression stockings, using her lymphedema cuffs. Please advise Elsie Kaplan APRN.OBED 12/12/2023 12:39 PM Signed Hurt current lasix and potassium dose and give Lasix 40mg daily for the next 3 days and potassium 20meq for the next 3 days as well. Then restart current dose. Follow up if no improvement. Thank you Elsie Kapaln APRN.Ashley Luna LPN 12/12/2023 1:08 PM Signed Clarence notified and voiced his understanding. Allergies As of Date: 12/12/2023 Noted Allergy Reaction BEE STING 02/28/2023 10 - Anaphylaxis DILANTIN (PHENYTOIN SODIUM EXTEND*01/28/2006 Date Reviewed: 11/18/2023 Reviewed by: Aaliyah Gonzalez MA - Fully Assessed Reason for Visit: weight gain [Other] Order(s):furosemide (LASIX) 40 mg tabletTake 1 tablet by mouth once daily.Disp: 3 tabletRfl: 0 potassium chloride 20 mEq TbERTake 1 tablet by mouth once daily.Disp: 3 tabletRfl: 0 Prescriptions as of 12/12/2023 - furosemide (LASIX) 40 mg tablet Take 1 tablet by mouth once daily. - potassium chloride 20 mEq TbER Take 1 tablet by mouth once daily. - ammonium lactate (LAC-HYDRIN) 12 % cream APPLY TOPICALLY TO AFFECTED AREA(S) ON LEGS AT BEDTIME - Leg Brace (TRUE CMFT KNEE COMPRESSION) misc 1 Each once daily. - furosemide (LASIX) 20 mg tablet TAKE ONE TABLET BY MOUTH EVERY OTHER DAY FOR LYMPHEDEMA - potassium chloride ER (KLOR-CON M10) 10 mEq tablet Take 1 tablet by mouth once daily. - multivitamin-ferrous fumarate-folic acid (CERTAVITE-ANTIOXIDAN T) Take 1 tablet by mouth once daily. - fluticasone (FLONASE) 50 mcg/actuation nasal spray INSTILL 2 SPRAYS IN EACH NOSTRIL DAILY - Clfvy-3-AEE-EPA-Fish Oil 1,000 mg (120 mg-180 mg) cap Take 1 capsule by mouth once daily. - EPINEPHrine (EPIPEN) 0.3 mg/0.3 mL auto-injector INJECT 1 PEN INTO LATERAL THIGH DIRECTED FOR ALLERGIC REACTIONS TO BEE/WASP STINGS MAY REPEAT IN 5-15 MINUTES IF SYMPTOMS PERSIST * *STAFF REORDER, 4 DAYS IN ADVANCE* - levothyroxine (SYNTHROID) 100 mcg tablet take one tablet by mouth daily one hour before breakfast - DULERA 100-5 mcg/actuation inhaler INHALE 2 PUFFS BY MOUTH TWICE DAILY ( INSTRUCTED) - nystatin (NYAMYC) powder APPLY TOPICALLY TWICE DAILY TO AFFECTED AREA(S) ON ABDOMINAL FOLDS - OYSTER SHELL CALCIUM-VITAMIN D 500 mg-5 mcg (200 unit) per tablet take one tablet by mouth twice daily with meals - clotrimazole (LOTRIMIN) 1 % cream APPLY TOPICALLY TO AFFECTED AREA(S) ON BILATERAL GROIN TWICE DAILY - albuterol HFA (VENTOLIN HFA) 90 mcg/actuation inhaler Inhale 2 Puffs as instructed every 4 hours as needed for wheezing/shortness of breath. - naproxen (NAPROSYN) 500 mg tablet TAKE ONE TABLET BY MOUTH TWICE DAILY NEEDED FOR PAIN/INFLAMMATION OF KNEE *TAKE WITH FOOD* *STAFF REORDER, 4 DAYS IN ADVANCE* - acetaminophen (TYLENOL EXTRA STRENGTH) 500 mg tablet Take 2 tablets by mouth every 8 hours as needed for pain (For knee pain). - MEDICAL SUPPLY Lymphedema massage therapy - IRAIDA 0.35 mg tablet - Gauze Bandage 2 X 2 bndg Apply 1 application to affected area twice daily. - Desogestrel-Ethinyl Estradiol (APRI) 0.15-0.03 mg per tablet Take 1 tablet by mouth once daily. - diphenhydrAMINE (BENADRYL) 25 mg tablet Take 1 tablet by mouth every 6 hours as needed. - cetirizine (ZYRTEC) 10 mg tablet Take 1 tablet by mouth once daily. - COMPOUNDED PRESCRIPTION 1 Each once daily. Custom 20-30mmHg knee high compression stockings. Dx: Recurrent cellulitis legs and morbid obesity.Lymph Edema 8am for 2 pairs per year - COMPOUNDED PRESCRIPTION Pt's body checks to be completed once weekly during the day. - COMPOUNDED PRESCRIPTION Weight check q Sun at 8pm and q Fri at 4pm Dx:Q87.1 Problem List As Of Date 12/12/2023 Noted Resolved Other malaise and fatigue [R53.81, R53.83] 08/06/2005 12/13/2013 Other dyspnea and respiratory abnormality [R06.*08/06/2005 12/13/2013 Other alteration of consciousness [R40.4] 08/06/2005 12/13/2013 WEIGHT GAIN, ABNORMAL [R63.5] 08/06/2005 12/13/2013 Prader-Willi syndrome [Q87.11] 08/27/2005 VENOUS INSUFFICIENCY [I87.2] 08/27/2005 12/14/2014 Mild intermittent asthma without complication [* Allergic rhinitis [J30.9] SLEEP APNEA [G47.30] 01/28/2006 12/14/2014 HYPOTHYROIDISM NOS [E03.9] 01/28/2006 12/14/2014 Morbid obesity (HCC) [E66.01] 01/28/2006 12/13/2013 Open wound of knee, le (more content not included)... Normal [facility] 12-05-2023 [facility] Telephone (INTMWS) JOSE ABDUL ([id number]) 1980 F Date Time Provider Department 12/05/23 SHERIF THAKUR INTWS During your visit today, we recorded the following information about you: Candelaria Ball LPN 12/05/2023 9:23 AM Signed Clarence from [facility] calling time for recert [place] [facility]. Patient retirement was purchased by another company, nurses will be there more. Patient will be weighed once weekly and log kept to bring to appts. Patient is taking her second antibiotic for cellulitis. Please advise Sherif Thakur MD 12/05/2023 7:28 PM Signed Noted, verbal ok for the same Regards, Sherif Reyes LacieJORDAN 12/08/2023 8:08 AM Signed Called and updated Clarence, voiced understanding. Lacie Reyes LPN December 08, 2023 8:08 AM Allergies As of Date: 12/05/2023 Noted Allergy Reaction BEE STING 02/28/2023 10 - Anaphylaxis DILANTIN (PHENYTOIN SODIUM EXTEND*01/28/2006 Date Reviewed: 11/18/2023 Reviewed by: Aaliyah Gonzalez MA - Fully Assessed Reason for Visit: recert patient for [place] [facility] service [Other] Prescriptions as of 12/08/2023 - ammonium lactate (LAC-HYDRIN) 12 % cream APPLY TOPICALLY TO AFFECTED AREA(S) ON LEGS AT BEDTIME - Leg Brace (TRUE CMFT KNEE COMPRESSION) misc 1 Each once daily. - furosemide (LASIX) 20 mg tablet TAKE ONE TABLET BY MOUTH EVERY OTHER DAY FOR LYMPHEDEMA - potassium chloride ER (KLOR-CON M10) 10 mEq tablet Take 1 tablet by mouth once daily. - multivitamin-ferrous fumarate-folic acid (CERTAVITE-ANTIOXIDAN T) Take 1 tablet by mouth once daily. - fluticasone (FLONASE) 50 mcg/actuation nasal spray INSTILL 2 SPRAYS IN EACH NOSTRIL DAILY - Oudcw-1-FNS-EPA-Fish Oil 1,000 mg (120 mg-180 mg) cap Take 1 capsule by mouth once daily. - EPINEPHrine (EPIPEN) 0.3 mg/0.3 mL auto-injector INJECT 1 PEN INTO LATERAL THIGH DIRECTED FOR ALLERGIC REACTIONS TO BEE/WASP STINGS MAY REPEAT IN 5-15 MINUTES IF SYMPTOMS PERSIST * *STAFF REORDER, 4 DAYS IN ADVANCE* - levothyroxine (SYNTHROID) 100 mcg tablet take one tablet by mouth daily one hour before breakfast - DULERA 100-5 mcg/actuation inhaler INHALE 2 PUFFS BY MOUTH TWICE DAILY ( INSTRUCTED) - nystatin (NYAMYC) powder APPLY TOPICALLY TWICE DAILY TO AFFECTED AREA(S) ON ABDOMINAL FOLDS - OYSTER SHELL CALCIUM-VITAMIN D 500 mg-5 mcg (200 unit) per tablet take one tablet by mouth twice daily with meals - clotrimazole (LOTRIMIN) 1 % cream APPLY TOPICALLY TO AFFECTED AREA(S) ON BILATERAL GROIN TWICE DAILY - albuterol HFA (VENTOLIN HFA) 90 mcg/actuation inhaler Inhale 2 Puffs as instructed every 4 hours as needed for wheezing/shortness of breath. - naproxen (NAPROSYN) 500 mg tablet TAKE ONE TABLET BY MOUTH TWICE DAILY NEEDED FOR PAIN/INFLAMMATION OF KNEE *TAKE WITH FOOD* *STAFF REORDER, 4 DAYS IN ADVANCE* - acetaminophen (TYLENOL EXTRA STRENGTH) 500 mg tablet Take 2 tablets by mouth every 8 hours as needed for pain (For knee pain). - MEDICAL SUPPLY Lymphedema massage therapy - IRAIDA 0.35 mg tablet - Gauze Bandage 2 X 2 bndg Apply 1 application to affected area twice daily. - Desogestrel-Ethinyl Estradiol (APRI) 0.15-0.03 mg per tablet Take 1 tablet by mouth once daily. - diphenhydrAMINE (BENADRYL) 25 mg tablet Take 1 tablet by mouth every 6 hours as needed. - cetirizine (ZYRTEC) 10 mg tablet Take 1 tablet by mouth once daily. - COMPOUNDED PRESCRIPTION 1 Each once daily. Custom 20-30mmHg knee high compression stockings. Dx: Recurrent cellulitis legs and morbid obesity.Lymph Edema 8am for 2 pairs per year - COMPOUNDED PRESCRIPTION Pt's body checks to be completed once weekly during the day. - COMPOUNDED PRESCRIPTION Weight check q Sun at 8pm and q Fri at 4pm Dx:Q87.1 Problem List As Of Date 12/05/2023 Noted Resolved Other malaise and fatigue [R53.81, R53.83] 08/06/2005 12/13/2013 Other dyspnea and respiratory abnormality [R06.*08/06/2005 12/13/2013 Other alteration of consciousness [R40.4] 08/06/2005 12/13/2013 WEIGHT GAIN, ABNORMAL [R63.5] 08/06/2005 12/13/2013 Prader-Willi syndrome [Q87.11] 08/27/2005 VENOUS INSUFFICIENCY [I87.2] 08/27/2005 12/14/2014 Mild intermittent asthma without complication [* Allergic rhinitis [J30.9] SLEEP APNEA [G47.30] 01/28/2006 12/14/2014 HYPOTHYROIDISM NOS [E03.9] 01/28/2006 12/14/2014 Morbid obesity (HCC) [E66.01] 01/28/2006 12/13/2013 Open wound of knee, leg (except thigh), and ank*12/04/2009 12/13/2013 Amenorrhea [N91.2] 06/18/2011 12/07/2015 Vitamin D deficiency [E55.9] 11/05/2011 Mental status change [R41.82] 01/08/2013 12/13/2013 Other lymphedema [I89.0] 04/26/2013 12/14/2014 BMI 50.0-59.9, adult (HCC) [Z68.43] 10/11/2013 12/14/2014 Venous insufficiency (chronic) (peripheral) [I8*12/14/2014 Acquired hypothyroidism [E03.9] 12/14/2014 Obstructive sleep apnea syndrome [G47.33] 12/14/2014 BM (more content not included)... Normal [facility] CNOVon 11-18-2023 CNOV Office Visit (INTMWS ) JOSE ABDUL ([id number]) 1980 F Date Time Provider Department 11/18/23 3:40 PM SHERIF THAKUR INTMWS During your visit today, we recorded the following information about you: Pulse Respiration Blood pressure Weight 75/minute 16/minute 134/80 119.6 kg Sherif Thakur MD 11/18/2023 5:45 PM Signed Reason for Visit Patient presents with: Follow Up Jose Abdul is a 42 year old female who presents here today for Above Complaints.. Health Maintenance HEPATITIS B(1 of 3 - 3-dose series) SPIROMETRY PNEUMOCOCCAL(2 - PCV) DEPRESSION ASSESSMENT MAMMOGRAM KALPESH Martell is a very pleasant 41-year-old woman with past medical history of Prader-Willi hypothyroidism, hypothalamic hypogonadism syndrome, lymphedema of the extremities, sleep apnea, mild intermittent asthma, venous insufficiency, obstructive sleep apnea and history of DVT, morbid obesity, who is here for an annual physical. Lymphedema: she has remained around 10 pounds heavier than before in the past year. There is accumulation of more fluid in the lower extremities. Her current compression wraps are not working and the compression stockings are rolling a down easy and she needs longer and newer ones. Compression therapy machine is not working well for her. Hypothyroidism. She is doing well on her current dose of Synthroid. Denies fatigue, cold intolerance and swelling in feet. TSH recently checked and normal. Patient does the lymphedema massagers and she is on the lasix. No problem-specific Assessment AND Plan notes found for this encounter. PAST MEDICAL HISTORY No date: Allergic rhinitis, cause unspecified Comment: Allergic rhinitis No date: Amenorrhea 2010: Cellulitis Comment: leg-resolved No date: Chronic obstructive asthma, unspecified No date: Lymphedema No date: Morbid obesity (HCC) No date: Other diseases of lung, not elsewhere classified Comment: BILATERAL HILAR ADENOPATHY No date: PMH - PAST MEDICAL HISTORY OF Comment: VENOUS INSUFFICENCY No date: PMH - PAST MEDICAL HISTORY OF Comment: PRADER-VALETNIN SYNDROME No date: Postinflammatory pulmonary fibrosis (HCC) Comment: recurring pneumonia 2to pulonary fibrosis No date: Thrombophlebitis No date: Unspecified intellectual disabilities Comment: mild No date: Viral pneumonia, unspecified Comment: LLL PAST SURGICAL HISTORY No date: NONE FAMILY HISTORY Problem Relation Age of Onset Diabetes Maternal Grandmother Social History Tobacco Use Smoking status: Never Smokeless tobacco: Never Substance Use Topics Alcohol use: No Drug use: No Past medical history, appointments, medications, allergies reviewed. Pertinent Lab/Diagnostic Studies are reviewed and discussed today Current Outpatient Medications: doxycycline (VIBRA-TABS) 100 mg tablet multivitamin-ferrous fumarate-folic acid (CERTAVITE-ANTIOXIDAN T) fluticasone (FLONASE) 50 mcg/actuation nasal spray Xereh-5-WKS-EPA-Fish Oil 1,000 mg (120 mg-180 mg) cap EPINEPHrine (EPIPEN) 0.3 mg/0.3 mL auto-injector levothyroxine (SYNTHROID) 100 mcg tablet DULERA 100-5 mcg/actuation inhaler nystatin (NYAMYC) powder OYSTER SHELL CALCIUM-VITAMIN D 500 mg-5 mcg (200 unit) per tablet potassium chloride ER (KLOR-CON M10) 10 mEq tablet clotrimazole (LOTRIMIN) 1 % cream albuterol HFA (VENTOLIN HFA) 90 mcg/actuation inhaler furosemide (LASIX) 20 mg tablet ammonium lactate (LAC-HYDRIN) 12 % cream naproxen (NAPROSYN) 500 mg tablet acetaminophen (TYLENOL EXTRA STRENGTH) 500 mg tablet MEDICAL SUPPLY IRAIDA 0.35 mg tablet Gauze Bandage 2 X 2 bndg Desogestrel-Ethinyl Estradiol (APRI) 0.15-0.03 mg per tablet diphenhydrAMINE (BENADRYL) 25 mg tablet cetirizine (ZYRTEC) 10 mg tablet COMPOUNDED PRESCRIPTION COMPOUNDED PRESCRIPTION COMPOUNDED PRESCRIPTION Review of Systems CONSTITUTIONAL: No fevers, chills night sweats, unintended weight loss CARDIOVASCULAR: No chest pain, dyspnea, palpitations, orthopnea, PND, ankle edema. PULM: No dyspnea, unexplained cough. GI: No dysphagia/odynophagia , problematic reflux, constipation, diarrhea, changes in stool habits, hematochezia, melena. : No new urinary complaints, including dysuria, gross hematuria or pyuria. NEURO: No new balance problems, peripheral weakness/paresthesias or numbness of concern. Physical Exam BP 134/80 Pulse 75 Resp 16 Wt 119.6 kg (263 lb 10.7 oz) LMP 05/13/2007 BMI 58.07 kg/m? General appearance: Well appearing, alert, in no acute distress, well nourished. Skin: Skin color, texture, turgor normal, no suspicious rashes or lesions Head: Normocephalic, no masses, lesions, tenderness or abnormalities Eyes: Anicteric sclera. Pupils are equally round and reactive to light. Extraocular movements are intact. Lungs: Lungs clear to auscultation. No wheezing, rhonchi, rales Heart: RRR without (more content not included)... Normal [facility] CNOVon 11-13-2023 CNOV Office Visit (INTMWS ) JOSE ABDUL ([id number]) 1980 F Date Time Provider Department 11/13/23 11:00 AM ELSIE KPALAN During your visit today, we recorded the following information about you: Temperature Pulse Respiration Blood pressure 98.2 degrees 60/minute 16/minute 136/84 Weight 117.5 kg Elsie Kaplan APRN.MANAGING DIRECTOR ATLAS 11/13/2023 12:41 PM Signed CC: Patient presents with: Recheck: ER follow up, cellulitis completed AIB HPI Jose Abdul is a 43 year old female who presents today for cellulitis Unsure if there was injury or what caused infection but noticed while playing basketball that leg was red, hot, more swollen then usual and painful. Went immediately to [place] ER on 10/29. No US completed to rule out DVT and lab work stable. Completed antibiotic, cephalexin for 5 days, as ordered and lasix was also increased to 40mg for 5 days. Per patient there was no improvement in symptoms. Still red, more swollen then usual, and tender. Also was told she is weighing heavier then usual ut weight in office is similar to last one. Denies fever, chills, drainage, red streaking, shortness of breath, chest pain, palpitations, or any other new concerns. REVIEW OF SYSTEMS See HPI PAST MEDICAL HISTORY No date: Allergic rhinitis, cause unspecified Comment: Allergic rhinitis No date: Amenorrhea 2010: Cellulitis Comment: leg-resolved No date: Chronic obstructive asthma, unspecified No date: Lymphedema No date: Morbid obesity (HCC) No date: Other diseases of lung, not elsewhere classified Comment: BILATERAL HILAR ADENOPATHY No date: PMH - PAST MEDICAL HISTORY OF Comment: VENOUS INSUFFICENCY No date: PMH - PAST MEDICAL HISTORY OF Comment: PRADER-VALENTIN SYNDROME No date: Postinflammatory pulmonary fibrosis (HCC) Comment: recurring pneumonia 2to pulonary fibrosis No date: Thrombophlebitis No date: Unspecified intellectual disabilities Comment: mild No date: Viral pneumonia, unspecified Comment: LLL PAST SURGICAL HISTORY No date: NONE ALLERGIES Bee Sting and Dilantin [Phenytoin Sodium Extended] MEDICATIONS multivitamin-ferrous fumarate-folic acid (CERTAVITE-ANTIOXIDAN T) Take 1 tablet by mouth once daily. fluticasone (FLONASE) 50 mcg/actuation nasal spray INSTILL 2 SPRAYS IN EACH NOSTRIL DAILY Wzulf-1-JTM-EPA-Fish Oil 1,000 mg (120 mg-180 mg) cap Take 1 capsule by mouth once daily. EPINEPHrine (EPIPEN) 0.3 mg/0.3 mL auto-injector INJECT 1 PEN INTO LATERAL THIGH DIRECTED FOR ALLERGIC REACTIONS TO BEE/WASP STINGS MAY REPEAT IN 5-15 MINUTES IF SYMPTOMS PERSIST * *STAFF REORDER, 4 DAYS IN ADVANCE* levothyroxine (SYNTHROID) 100 mcg tablet take one tablet by mouth daily one hour before breakfast DULERA 100-5 mcg/actuation inhaler INHALE 2 PUFFS BY MOUTH TWICE DAILY ( INSTRUCTED) nystatin (NYAMYC) powder APPLY TOPICALLY TWICE DAILY TO AFFECTED AREA(S) ON ABDOMINAL FOLDS OYSTER SHELL CALCIUM-VITAMIN D 500 mg-5 mcg (200 unit) per tablet take one tablet by mouth twice daily with meals potassium chloride ER (KLOR-CON M10) 10 mEq tablet TAKE ONE TABLET BY MOUTH EVERY OTHER DAY ( WITH BREAKFAST) ON DAYS WHEN YOU TAKE LASIX (FUROSEMIDE) clotrimazole (LOTRIMIN) 1 % cream APPLY TOPICALLY TO AFFECTED AREA(S) ON BILATERAL GROIN TWICE DAILY albuterol HFA (VENTOLIN HFA) 90 mcg/actuation inhaler Inhale 2 Puffs as instructed every 4 hours as needed for wheezing/shortness of breath. furosemide (LASIX) 20 mg tablet TAKE ONE TABLET BY MOUTH EVERY OTHER DAY FOR LYMPHEDEMA ammonium lactate (LAC-HYDRIN) 12 % cream APPLY TOPICALLY TO AFFECTED AREA(S) ON LEGS AT BEDTIME naproxen (NAPROSYN) 500 mg tablet TAKE ONE TABLET BY MOUTH TWICE DAILY NEEDED FOR PAIN/INFLAMMATION OF KNEE *TAKE WITH FOOD* *STAFF REORDER, 4 DAYS IN ADVANCE* acetaminophen (TYLENOL EXTRA STRENGTH) 500 mg tablet Take 2 tablets by mouth every 8 hours as needed for pain (For knee pain). MEDICAL SUPPLY Lymphedema massage therapy IRAIDA 0.35 mg tablet Gauze Bandage 2 X 2 bndg Apply 1 application to affected area twice daily. Desogestrel-Ethinyl Estradiol (APRI) 0.15-0.03 mg per tablet Take 1 tablet by mouth once daily. diphenhydrAMINE (BENADRYL) 25 mg tablet Take 1 tablet by mouth every 6 hours as needed. cetirizine (ZYRTEC) 10 mg tablet Take 1 tablet by mouth once daily. COMPOUNDED PRESCRIPTION 1 Each once daily. Custom 20-30mmHg knee high compression stockings. Dx: Recurrent cellulitis legs and morbid obesity.Lymph Edema 8am for 2 pairs per year COMPOUNDED PRESCRIPTION Pt's body checks to be completed once weekly during the day. COMPOUNDED PRESCRIPTION Weight check q Fri at 8pm and q Fri at 4pm Dx:Q87.1 (Patient not taking: No sig reported) FAMILY HISTORY Problem Relation Age of Onset Diabetes Maternal Grandmother Social History Tobacco Use Smoking status: Never Smokeless tobacco: Never Subs (more content not included)... Normal [facility] CNPNon 11-13-2023 LOU Telephone (PAOLOWS) JOSE ABDUL ([id number]) 1980 F Date Time Provider Department 11/13/23 ELSIE KAPLAN During your visit today, we recorded the following information about you: María Avila MA 11/13/2023 2:42 PM Signed ----- Message from Elsie Kaplan APRN.MANAGING DIRECTOR ATLAS sent at 11/13/2023 2:13 PM EDT ----- Please let [facility] know preliminary result of US is negative for blood clot. Thank you Elsie Kaplan APRN.María Mchugh MA 11/13/2023 2:44 PM Signed Shaunna whittenied. Allergies As of Date: 11/13/2023 Noted Allergy Reaction BEE STING 02/28/2023 10 - Anaphylaxis DILANTIN (PHENYTOIN SODIUM EXTEND*01/28/2006 Date Reviewed: 11/13/2023 Reviewed by: María Avila MA - Fully Assessed Reason for Visit: Results [95] Prescriptions as of 11/13/2023 - doxycycline (VIBRA-TABS) 100 mg tablet Take 1 tablet by mouth two times a day for 10 days. - multivitamin-ferrous fumarate-folic acid (CERTAVITE-ANTIOXIDAN T) Take 1 tablet by mouth once daily. - fluticasone (FLONASE) 50 mcg/actuation nasal spray INSTILL 2 SPRAYS IN EACH NOSTRIL DAILY - Swqjz-2-PDB-EPA-Fish Oil 1,000 mg (120 mg-180 mg) cap Take 1 capsule by mouth once daily. - EPINEPHrine (EPIPEN) 0.3 mg/0.3 mL auto-injector INJECT 1 PEN INTO LATERAL THIGH DIRECTED FOR ALLERGIC REACTIONS TO BEE/WASP STINGS MAY REPEAT IN 5-15 MINUTES IF SYMPTOMS PERSIST * *STAFF REORDER, 4 DAYS IN ADVANCE* - levothyroxine (SYNTHROID) 100 mcg tablet take one tablet by mouth daily one hour before breakfast - DULERA 100-5 mcg/actuation inhaler INHALE 2 PUFFS BY MOUTH TWICE DAILY ( INSTRUCTED) - nystatin (NYAMYC) powder APPLY TOPICALLY TWICE DAILY TO AFFECTED AREA(S) ON ABDOMINAL FOLDS - OYSTER SHELL CALCIUM-VITAMIN D 500 mg-5 mcg (200 unit) per tablet take one tablet by mouth twice daily with meals - potassium chloride ER (KLOR-CON M10) 10 mEq tablet TAKE ONE TABLET BY MOUTH EVERY OTHER DAY ( WITH BREAKFAST) ON DAYS WHEN YOU TAKE LASIX (FUROSEMIDE) - clotrimazole (LOTRIMIN) 1 % cream APPLY TOPICALLY TO AFFECTED AREA(S) ON BILATERAL GROIN TWICE DAILY - albuterol HFA (VENTOLIN HFA) 90 mcg/actuation inhaler Inhale 2 Puffs as instructed every 4 hours as needed for wheezing/shortness of breath. - furosemide (LASIX) 20 mg tablet TAKE ONE TABLET BY MOUTH EVERY OTHER DAY FOR LYMPHEDEMA - ammonium lactate (LAC-HYDRIN) 12 % cream APPLY TOPICALLY TO AFFECTED AREA(S) ON LEGS AT BEDTIME - naproxen (NAPROSYN) 500 mg tablet TAKE ONE TABLET BY MOUTH TWICE DAILY NEEDED FOR PAIN/INFLAMMATION OF KNEE *TAKE WITH FOOD* *STAFF REORDER, 4 DAYS IN ADVANCE* - acetaminophen (TYLENOL EXTRA STRENGTH) 500 mg tablet Take 2 tablets by mouth every 8 hours as needed for pain (For knee pain). - MEDICAL SUPPLY Lymphedema massage therapy - IRAIDA 0.35 mg tablet - Gauze Bandage 2 X 2 bndg Apply 1 application to affected area twice daily. - Desogestrel-Ethinyl Estradiol (APRI) 0.15-0.03 mg per tablet Take 1 tablet by mouth once daily. - diphenhydrAMINE (BENADRYL) 25 mg tablet Take 1 tablet by mouth every 6 hours as needed. - cetirizine (ZYRTEC) 10 mg tablet Take 1 tablet by mouth once daily. - COMPOUNDED PRESCRIPTION 1 Each once daily. Custom 20-30mmHg knee high compression stockings. Dx: Recurrent cellulitis legs and morbid obesity.Lymph Edema 8am for 2 pairs per year - COMPOUNDED PRESCRIPTION Pt's body checks to be completed once weekly during the day. - COMPOUNDED PRESCRIPTION Weight check q Fri at 8pm and q Fri at 4pm Dx:Q87.1 Problem List As Of Date 11/13/2023 Noted Resolved Other malaise and fatigue [R53.81, R53.83] 08/06/2005 12/13/2013 Other dyspnea and respiratory abnormality [R06.*08/06/2005 12/13/2013 Other alteration of consciousness [R40.4] 08/06/2005 12/13/2013 WEIGHT GAIN, ABNORMAL [R63.5] 08/06/2005 12/13/2013 Prader-Willi syndrome [Q87.11] 08/27/2005 VENOUS INSUFFICIENCY [I87.2] 08/27/2005 12/14/2014 Mild intermittent asthma without complication [* Allergic rhinitis [J30.9] SLEEP APNEA [G47.30] 01/28/2006 12/14/2014 HYPOTHYROIDISM NOS [E03.9] 01/28/2006 12/14/2014 Morbid obesity (HCC) [E66.01] 01/28/2006 12/13/2013 Open wound of knee, leg (except thigh), and ank*12/04/2009 12/13/2013 Amenorrhea [N91.2] 06/18/2011 12/07/2015 Vitamin D deficiency [E55.9] 11/05/2011 Mental status change [R41.82] 01/08/2013 12/13/2013 Other lymphedema [I89.0] 04/26/2013 12/14/2014 BMI 50.0-59.9, adult (HCC) [Z68.43] 10/11/2013 12/14/2014 Venous insufficiency (chronic) (peripheral) [I8*12/14/2014 Acquired hypothyroidism [E03.9] 12/14/2014 Obstructive sleep apnea syndrome [G47.33] 12/14/2014 BMI 40.0-44.9, adult (HCC) [Z68.41] 12/14/2014 02/09/2015 BMI 45.0-49.9, adult (HCC) [Z68.42] 02/09/2015 03/19/2023 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 Normal [facility] LEG VEIN DVT UNL VAS LABo n 11-13-2023 LEG VEIN DVT UNL VAS LAB Non-Invasive Vascular Laboratory [facility] Lower Extremity Venous Duplex Unilateral - Left Date of service/time: 11/13/2023 1:13:16 PM Name: MISS JOSE ABDUL Date of : 1980 Age: 43 years Gender: F Clinical Indication Lower extremity swelling. TECHNIQUE -------- A venous duplex ultrasound examination was performed, including grayscale imaging with compression maneuvers and color Doppler and spectral Doppler examination with augmentation maneuvers and response to respiration of the below mentioned veins. FINDINGS -------- RIGHT SIDE Common femoral vein Doppler: normal flow. LEFT SIDE Distal external iliac vein Doppler: normal flow. Compression: normal. Common femoral vein Doppler: normal flow. Compression: normal. Femoral vein Doppler: normal flow. Compression: normal. Popliteal vein Doppler: normal flow. Compression: normal. Posterior tibial veins Compression: normal. Peroneal veins Compression: normal. Great saphenous vein Compression: normal. Small saphenous vein Compression: normal. Varicosity off the great saphenous vein Compression: normal. IMPRESSION Technically difficult exam due to patient's body habitus and lymphedema. Compared to prior study of 02/13/2021, Remains negative for thrombosis. RIGHT SIDE - DEEP VEINS Spontaneous and respirophasic flow noted in the common femoral vein. LEFT SIDE - DEEP VEINS Negative for acute deep vein thrombosis. Only segments visualized of the posterior tibial veins and peroneal veins. LEFT SIDE - SUPERFICIAL VEINS Negative for superficial thrombophlebitis in the great saphenous vein and varicosity off the great saphenous vein. Negative for superficial thrombophlebitis in the small saphenous vein. Technologist: Hina Giraldo RVT, [facility] [[email or web address]] Ordering physician: ELSIE KAPLAN Interpreting physician: DANITZA Eden DO Final CC [facility] Image : [id number] [id number] See Link below for Image Normal [facility] Lower extremity veinon Non-Invasive Vascular Laboratory [facility] Lower Extremity Venous Duplex Unilateral - Left Date of service/time: 11/13/2023 1:13:16 PM Name: MISS JOSE ABDUL Date of : 1980 Age: 43 years Gender: F Clinical Indication Lower extremity swelling. TECHNIQUE -------- A venous duplex ultrasound examination was performed, including grayscale imaging with compression maneuvers and color Doppler and spectral Doppler examination with augmentation maneuvers and response to respiration of the below mentioned veins. FINDINGS -------- RIGHT SIDE Common femoral vein Doppler: normal flow. LEFT SIDE Distal external iliac vein Doppler: normal flow. Compression: normal. Common femoral vein Doppler: normal flow. Compression: normal. Femoral vein Doppler: normal flow. Compression: normal. Popliteal vein Doppler: normal flow. Compression: normal. Posterior tibial veins Compression: normal. Peroneal veins Compression: normal. Great saphenous vein Compression: normal. Small saphenous vein Compression: normal. Varicosity off the great saphenous vein Compression: normal. IMPRESSION Technically difficult exam due to patient's body habitus and lymphedema. Compared to prior study of 02/13/2021, Remains negative for thrombosis. RIGHT SIDE - DEEP VEINS Spontaneous and respirophasic flow noted in the common femoral vein. LEFT SIDE - DEEP VEINS Negative for acute deep vein thrombosis. Only segments visualized of the posterior tibial veins and peroneal veins. LEFT SIDE - SUPERFICIAL VEINS Negative for superficial thrombophlebitis in the great saphenous vein and varicosity off the great saphenous vein. Negative for superficial thrombophlebitis in the small saphenous vein. Technologist: Hina Giraldo RVT [facility] [[email or web address]] Ordering physician: ELSIE KAPLAN Interpreting physician: DANITZA Eden DO Final See Link below for [facility] CNPN Telephone (INTMWS) JOSE ABDUL ([id number]) 1980 F Date Time Provider Department 11/12/23 SHERIF THAKUR INTRahWS During your visit today, we recorded the following information about you: Candelaria Ball LPN 11/12/2023 9:30 AM Signed Clarence from [facility] calling 2 weeks ago ER put her on antibiotics for cellulitis left lower leg, she has completed rx. He said her left leg is sore, no redness that he can see, but did not remove her wraps totally. Aware appt on 11/17 for follow up. He is going to call and see if can get transportation sooner to schedule appt before the end of this week to be seen by PCP. Pamela Singh LPN 11/12/2023 10:12 AM Signed Clarence called back with more information. He weighed pt today and she weighed 265. She normally weighs 250 to 255. Per Clarence pt may be going to Urgent Care somewhere, he wasn't sure. JORDAN Boston Joy, APRN.OBED 11/13/2023 12:24 PM Signed Discussed in appointment today Elsie Kaplan APRN.Candelaria Perez LPN 11/19/2023 8:50 AM Signed Clarence from [facility] calling back, went over notes from visit patient was given doxycycline 100 mg one tablet twice daily for 10 days and PCP had given orders for compression stockings, she had venous doppler and was negative for clot with understanding. Allergies As of Date: 11/12/2023 Noted Allergy Reaction BEE STING 02/28/2023 10 - Anaphylaxis DILANTIN (PHENYTOIN SODIUM EXTEND*01/28/2006 Date Reviewed: 03/19/2023 Reviewed by: Teresa Yeung APRN.MANAGING DIRECTOR ATLAS - Fully Assessed Reason for Visit: Patient Update [1234] Prescriptions as of 11/19/2023 - Leg Brace (TRUE CMFT KNEE COMPRESSION) misc 1 Each once daily. - furosemide (LASIX) 20 mg tablet TAKE ONE TABLET BY MOUTH EVERY OTHER DAY FOR LYMPHEDEMA - potassium chloride ER (KLOR-CON M10) 10 mEq tablet Take 1 tablet by mouth once daily. - doxycycline (VIBRA-TABS) 100 mg tablet Take 1 tablet by mouth two times a day for 10 days. - multivitamin-ferrous fumarate-folic acid (CERTAVITE-ANTIOXIDAN T) Take 1 tablet by mouth once daily. - fluticasone (FLONASE) 50 mcg/actuation nasal spray INSTILL 2 SPRAYS IN EACH NOSTRIL DAILY - Ikqkj-7-VAR-EPA-Fish Oil 1,000 mg (120 mg-180 mg) cap Take 1 capsule by mouth once daily. - EPINEPHrine (EPIPEN) 0.3 mg/0.3 mL auto-injector INJECT 1 PEN INTO LATERAL THIGH DIRECTED FOR ALLERGIC REACTIONS TO BEE/WASP STINGS MAY REPEAT IN 5-15 MINUTES IF SYMPTOMS PERSIST * *STAFF REORDER, 4 DAYS IN ADVANCE* - levothyroxine (SYNTHROID) 100 mcg tablet take one tablet by mouth daily one hour before breakfast - DULERA 100-5 mcg/actuation inhaler INHALE 2 PUFFS BY MOUTH TWICE DAILY ( INSTRUCTED) - nystatin (NYAMYC) powder APPLY TOPICALLY TWICE DAILY TO AFFECTED AREA(S) ON ABDOMINAL FOLDS - OYSTER SHELL CALCIUM-VITAMIN D 500 mg-5 mcg (200 unit) per tablet take one tablet by mouth twice daily with meals - clotrimazole (LOTRIMIN) 1 % cream APPLY TOPICALLY TO AFFECTED AREA(S) ON BILATERAL GROIN TWICE DAILY - albuterol HFA (VENTOLIN HFA) 90 mcg/actuation inhaler Inhale 2 Puffs as instructed every 4 hours as needed for wheezing/shortness of breath. - ammonium lactate (LAC-HYDRIN) 12 % cream APPLY TOPICALLY TO AFFECTED AREA(S) ON LEGS AT BEDTIME - naproxen (NAPROSYN) 500 mg tablet TAKE ONE TABLET BY MOUTH TWICE DAILY NEEDED FOR PAIN/INFLAMMATION OF KNEE *TAKE WITH FOOD* *STAFF REORDER, 4 DAYS IN ADVANCE* - acetaminophen (TYLENOL EXTRA STRENGTH) 500 mg tablet Take 2 tablets by mouth every 8 hours as needed for pain (For knee pain). - MEDICAL SUPPLY Lymphedema massage therapy - IRAIDA 0.35 mg tablet - Gauze Bandage 2 X 2 bndg Apply 1 application to affected area twice daily. - Desogestrel-Ethinyl Estradiol (APRI) 0.15-0.03 mg per tablet Take 1 tablet by mouth once daily. - diphenhydrAMINE (BENADRYL) 25 mg tablet Take 1 tablet by mouth every 6 hours as needed. - cetirizine (ZYRTEC) 10 mg tablet Take 1 tablet by mouth once daily. - COMPOUNDED PRESCRIPTION 1 Each once daily. Custom 20-30mmHg knee high compression stockings. Dx: Recurrent cellulitis legs and morbid obesity.Lymph Edema 8am for 2 pairs per year - COMPOUNDED PRESCRIPTION Pt's body checks to be completed once weekly during the day. - COMPOUNDED PRESCRIPTION Weight check q Sun at 8pm and q Fri at 4pm Dx:Q87.1 Problem List As Of Date 11/12/2023 Noted Resolved Other malaise and fatigue [R53.81, R53.83] 08/06/2005 12/13/2013 Other dyspnea and respiratory abnormality [R06.*08/06/2005 12/13/2013 Other alteration of consciousness [R40.4] 08/06/2005 12/13/2013 WEIGHT GAIN, ABNORMAL [R63.5] 08/06/2005 12/13/2013 Prader-Willi syndrome [Q87.11] 08/27/2005 VENOUS INSUFFICIENCY [I87.2] 08/27/2005 12/14/2014 Mild intermittent asthma without complication [* Allergic rhinitis [J30.9] SLEEP APNEA [G47.30] 01/28/2006 1 (more content not included)... [facility] CHANTELLJOSE Jacques ([id number]) 1980 F Date Time Provider Department 10/09/23 SHERIF THAKUR INTMWS During your visit today, we recorded the following information about you: Pepper Walsh RN 10/09/2023 2:35 PM Signed Crystal with [facility] calling to update PCP that patient has 3cm open area to her right gonzales. Will keep it open to air and does not feel dressing is necessary. Patient is unsure how she acquired it but does pick at skin. Nursing will continue to monitor area. No call back needed, if provider agreeable. Pepper Walsh RN . Sherif Thakur MD 10/09/2023 5:58 PM Signed Noted and agree RegardsSherif MD Allergies As of Date: 10/09/2023 Noted Allergy Reaction BEE STING 02/28/2023 10 - Anaphylaxis DILANTIN (PHENYTOIN SODIUM EXTEND*01/28/2006 Date Reviewed: 03/19/2023 Reviewed by: Teresa Yeung APRN.[facility] - Fully Assessed Reason for Visit: Patient Update [1234] Prescriptions as of 10/10/2023 - multivitamin-ferrous fumarate-folic acid (CERTAVITE-ANTIOXIDAN T) Take 1 tablet by mouth once daily. - fluticasone (FLONASE) 50 mcg/actuation nasal spray INSTILL 2 SPRAYS IN EACH NOSTRIL DAILY - Traih-7-BYH-EPA-Fish Oil 1,000 mg (120 mg-180 mg) cap Take 1 capsule by mouth once daily. - EPINEPHrine (EPIPEN) 0.3 mg/0.3 mL auto-injector INJECT 1 PEN INTO LATERAL THIGH DIRECTED FOR ALLERGIC REACTIONS TO BEE/WASP STINGS MAY REPEAT IN 5-15 MINUTES IF SYMPTOMS PERSIST * *STAFF REORDER, 4 DAYS IN ADVANCE* - levothyroxine (SYNTHROID) 100 mcg tablet take one tablet by mouth daily one hour before breakfast - DULERA 100-5 mcg/actuation inhaler INHALE 2 PUFFS BY MOUTH TWICE DAILY ( INSTRUCTED) - nystatin (NYAMYC) powder APPLY TOPICALLY TWICE DAILY TO AFFECTED AREA(S) ON ABDOMINAL FOLDS - OYSTER SHELL CALCIUM-VITAMIN D 500 mg-5 mcg (200 unit) per tablet take one tablet by mouth twice daily with meals - potassium chloride ER (KLOR-CON M10) 10 mEq tablet TAKE ONE TABLET BY MOUTH EVERY OTHER DAY ( WITH BREAKFAST) ON DAYS WHEN YOU TAKE LASIX (FUROSEMIDE) - clotrimazole (LOTRIMIN) 1 % cream APPLY TOPICALLY TO AFFECTED AREA(S) ON BILATERAL GROIN TWICE DAILY - albuterol HFA (VENTOLIN HFA) 90 mcg/actuation inhaler Inhale 2 Puffs as instructed every 4 hours as needed for wheezing/shortness of breath. - furosemide (LASIX) 20 mg tablet TAKE ONE TABLET BY MOUTH EVERY OTHER DAY FOR LYMPHEDEMA - ammonium lactate (LAC-HYDRIN) 12 % cream APPLY TOPICALLY TO AFFECTED AREA(S) ON LEGS AT BEDTIME - naproxen (NAPROSYN) 500 mg tablet TAKE ONE TABLET BY MOUTH TWICE DAILY NEEDED FOR PAIN/INFLAMMATION OF KNEE *TAKE WITH FOOD* *STAFF REORDER, 4 DAYS IN ADVANCE* - acetaminophen (TYLENOL EXTRA STRENGTH) 500 mg tablet Take 2 tablets by mouth every 8 hours as needed for pain (For knee pain). - MEDICAL SUPPLY Lymphedema massage therapy - IRAIDA 0.35 mg tablet - Gauze Bandage 2 X 2 bndg Apply 1 application to affected area twice daily. - Desogestrel-Ethinyl Estradiol (APRI) 0.15-0.03 mg per tablet Take 1 tablet by mouth once daily. - diphenhydrAMINE (BENADRYL) 25 mg tablet Take 1 tablet by mouth every 6 hours as needed. - cetirizine (ZYRTEC) 10 mg tablet Take 1 tablet by mouth once daily. - COMPOUNDED PRESCRIPTION 1 Each once daily. Custom 20-30mmHg knee high compression stockings. Dx: Recurrent cellulitis legs and morbid obesity.Lymph Edema 8am for 2 pairs per year - COMPOUNDED PRESCRIPTION Pt's body checks to be completed once weekly during the day. 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] 08/27/2005 VENOUS INSUFFICIENCY [I87.2] 08/27/2005 12/14/2014 Mild intermittent asthma without complication [* Allergic rhinitis [J30.9] SLEEP APNEA [G47.30] 01/28/2006 12/14/2014 HYPOTHYROIDISM NOS [E03.9] 01/28/2006 12/14/2014 Morbid obesity (HCC) [E66.01] 01/28/2006 12/13/2013 Open wound of knee, leg (except thigh), and ank*12/04/2009 12/13/2013 Amenorrhea [N91.2] 06/18/2011 12/07/2015 Vitamin D deficiency [E55.9] 11/05/2011 Mental status change [R41.82] 01/08/2013 12/13/2013 Other lymphedema [I89.0] 04/26/2013 12/14/2014 BMI 50.0-59.9, adult (HCC) [Z68.43] 10/11/2013 12/14/2014 Venous insufficiency (chronic) (peripheral) [I8*12/14/2014 Acquired hypothyroidism [E03.9] 12/14/2014 Obstructive sleep apnea syndrome [G47.33] 12/14/2014 BMI 40.0-44.9, adult (HCC) [Z68.41] 12/14/2014 02/09/2015 BMI 45.0-49.9, adult ([facility]) [Z68.42] 02/09/2015 03/19/2023 Hypothalamic hypogonadism (H (more content not included)... [facility] CHANTELLJOSE Jacques ([id number]) 1980 F Date Time Provider Department 10/09/23 SHERIF THAKUR INTMWS During your visit today, we recorded the following information about you: Candelaria Ball LPN 10/09/2023 1:34 PM Signed Clarence from [facility] calling to recert orders for [facility] for the patient, if PCP would agree. Please advise Sherif Thakur MD 10/09/2023 5:58 PM Signed Agree Sheirf Lassiter MD, Beth, LPN 10/10/2023 8:38 AM Signed Phoned Clarence and went over notes below from Dr Thakur with understanding. Allergies As of Date: 10/09/2023 Noted Allergy Reaction BEE STING 02/28/2023 10 - Anaphylaxis DILANTIN (PHENYTOIN SODIUM EXTEND*01/28/2006 Date Reviewed: 03/19/2023 Reviewed by: Teresa Yeung APRN.[facility] - Fully Assessed Reason for Visit: recert orders [Other] Prescriptions as of 10/10/2023 - multivitamin-ferrous fumarate-folic acid (CERTAVITE-ANTIOXIDAN T) Take 1 tablet by mouth once daily. - fluticasone (FLONASE) 50 mcg/actuation nasal spray INSTILL 2 SPRAYS IN EACH NOSTRIL DAILY - Mwtzh-5-XZG-EPA-Fish Oil 1,000 mg (120 mg-180 mg) cap Take 1 capsule by mouth once daily. - EPINEPHrine (EPIPEN) 0.3 mg/0.3 mL auto-injector INJECT 1 PEN INTO LATERAL THIGH DIRECTED FOR ALLERGIC REACTIONS TO BEE/WASP STINGS MAY REPEAT IN 5-15 MINUTES IF SYMPTOMS PERSIST * *STAFF REORDER, 4 DAYS IN ADVANCE* - levothyroxine (SYNTHROID) 100 mcg tablet take one tablet by mouth daily one hour before breakfast - DULERA 100-5 mcg/actuation inhaler INHALE 2 PUFFS BY MOUTH TWICE DAILY ( INSTRUCTED) - nystatin (NYAMYC) powder APPLY TOPICALLY TWICE DAILY TO AFFECTED AREA(S) ON ABDOMINAL FOLDS - OYSTER SHELL CALCIUM-VITAMIN D 500 mg-5 mcg (200 unit) per tablet take one tablet by mouth twice daily with meals - potassium chloride ER (KLOR-CON M10) 10 mEq tablet TAKE ONE TABLET BY MOUTH EVERY OTHER DAY ( WITH BREAKFAST) ON DAYS WHEN YOU TAKE LASIX (FUROSEMIDE) - clotrimazole (LOTRIMIN) 1 % cream APPLY TOPICALLY TO AFFECTED AREA(S) ON BILATERAL GROIN TWICE DAILY - albuterol HFA (VENTOLIN HFA) 90 mcg/actuation inhaler Inhale 2 Puffs as instructed every 4 hours as needed for wheezing/shortness of breath. - furosemide (LASIX) 20 mg tablet TAKE ONE TABLET BY MOUTH EVERY OTHER DAY FOR LYMPHEDEMA - ammonium lactate (LAC-HYDRIN) 12 % cream APPLY TOPICALLY TO AFFECTED AREA(S) ON LEGS AT BEDTIME - naproxen (NAPROSYN) 500 mg tablet TAKE ONE TABLET BY MOUTH TWICE DAILY NEEDED FOR PAIN/INFLAMMATION OF KNEE *TAKE WITH FOOD* *STAFF REORDER, 4 DAYS IN ADVANCE* - acetaminophen (TYLENOL EXTRA STRENGTH) 500 mg tablet Take 2 tablets by mouth every 8 hours as needed for pain (For knee pain). - MEDICAL SUPPLY Lymphedema massage therapy - IRAIDA 0.35 mg tablet - Gauze Bandage 2 X 2 bndg Apply 1 application to affected area twice daily. - Desogestrel-Ethinyl Estradiol (APRI) 0.15-0.03 mg per tablet Take 1 tablet by mouth once daily. - diphenhydrAMINE (BENADRYL) 25 mg tablet Take 1 tablet by mouth every 6 hours as needed. - cetirizine (ZYRTEC) 10 mg tablet Take 1 tablet by mouth once daily. - COMPOUNDED PRESCRIPTION 1 Each once daily. Custom 20-30mmHg knee high compression stockings. Dx: Recurrent cellulitis legs and morbid obesity.Lymph Edema 8am for 2 pairs per year - COMPOUNDED PRESCRIPTION Pt's body checks to be completed once weekly during the day. 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] 08/27/2005 VENOUS INSUFFICIENCY [I87.2] 08/27/2005 12/14/2014 Mild intermittent asthma without complication [* Allergic rhinitis [J30.9] SLEEP APNEA [G47.30] 01/28/2006 12/14/2014 HYPOTHYROIDISM NOS [E03.9] 01/28/2006 12/14/2014 Morbid obesity (HCC) [E66.01] 01/28/2006 12/13/2013 Open wound of knee, leg (except thigh), and ank*12/04/2009 12/13/2013 Amenorrhea [N91.2] 06/18/2011 12/07/2015 Vitamin D deficiency [E55.9] 11/05/2011 Mental status change [R41.82] 01/08/2013 12/13/2013 Other lymphedema [I89.0] 04/26/2013 12/14/2014 BMI 50.0-59.9, adult (HCC) [Z68.43] 10/11/2013 12/14/2014 Venous insufficiency (chronic) (peripheral) [I8*12/14/2014 Acquired hypothyroidism [E03.9] 12/14/2014 Obstructive sleep apnea syndrome [G47.33] 12/14/2014 BMI 40.0-44.9, adult (HCC) [Z68.41] 12/14/2014 02/09/2015 BMI 45.0-49.9, adult (HCC) [Z68.42] 02/09/2015 03/19/2023 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 [facility]INTMWS[facility] JOSE ABDUL ([id number]) 1980 F Date Time Provider Department 08/07/23 SHERIF THAKUR INTMWS During your visit today, we recorded the following information about you: Lillie Marshall RN 08/07/2023 10:44 AM Signed Clarence from [facility] calls to see if provider will continue to [place] [facility] RODRÍGUEZ Carnes Terri, MOISES.PRESSURE STEAMER TENDER 08/07/2023 12:45 PM Signed Darlene Patricia OCCA 08/07/2023 12:57 PM Signed Clarence informed of below. ANUPAMA Lira Allergies As of Date: 08/07/2023 Noted Allergy Reaction BEE STING 02/28/2023 10 - Anaphylaxis DILANTIN (PHENYTOIN SODIUM EXTEND*01/28/2006 Date Reviewed: 03/19/2023 Reviewed by: Teresa Yeung APRN.[employer] - Fully Assessed Prescriptions as of 08/07/2023 - EPINEPHrine (EPIPEN) 0.3 mg/0.3 mL auto-injector INJECT 1 PEN INTO LATERAL THIGH DIRECTED FOR ALLERGIC REACTIONS TO BEE/WASP STINGS MAY REPEAT IN 5-15 MINUTES IF SYMPTOMS PERSIST * *STAFF REORDER, 4 DAYS IN ADVANCE* - levothyroxine (SYNTHROID) 100 mcg tablet take one tablet by mouth daily one hour before breakfast - DULERA 100-5 mcg/actuation inhaler INHALE 2 PUFFS BY MOUTH TWICE DAILY ( INSTRUCTED) - nystatin (NYAMYC) powder APPLY TOPICALLY TWICE DAILY TO AFFECTED AREA(S) ON ABDOMINAL FOLDS - OYSTER SHELL CALCIUM-VITAMIN D 500 mg-5 mcg (200 unit) per tablet take one tablet by mouth twice daily with meals - potassium chloride ER (KLOR-CON M10) 10 mEq tablet TAKE ONE TABLET BY MOUTH EVERY OTHER DAY ( WITH BREAKFAST) ON DAYS WHEN YOU TAKE LASIX (FUROSEMIDE) - clotrimazole (LOTRIMIN) 1 % cream APPLY TOPICALLY TO AFFECTED AREA(S) ON BILATERAL GROIN TWICE DAILY - albuterol HFA (VENTOLIN HFA) 90 mcg/actuation inhaler Inhale 2 Puffs as instructed every 4 hours as needed for wheezing/shortness of breath. - furosemide (LASIX) 20 mg tablet TAKE ONE TABLET BY MOUTH EVERY OTHER DAY FOR LYMPHEDEMA - ammonium lactate (LAC-HYDRIN) 12 % cream APPLY TOPICALLY TO AFFECTED AREA(S) ON LEGS AT BEDTIME - multivitamin-ferrous fumarate-folic acid (CERTAVITE-ANTIOXIDAN T) Take 1 tablet by mouth once daily. - naproxen (NAPROSYN) 500 mg tablet TAKE ONE TABLET BY MOUTH TWICE DAILY NEEDED FOR PAIN/INFLAMMATION OF KNEE *TAKE WITH FOOD* *STAFF REORDER, 4 DAYS IN ADVANCE* - fluticasone (FLONASE) 50 mcg/actuation nasal spray INSTILL 2 SPRAYS IN EACH NOSTRIL DAILY - Uaxes-3-ZJF-EPA-Fish Oil 1,000 mg (120 mg-180 mg) cap TAKE ONE CAPSULE BY MOUTH DAILY - acetaminophen (TYLENOL EXTRA STRENGTH) 500 mg tablet Take 2 tablets by mouth every 8 hours as needed for pain (For knee pain). - MEDICAL SUPPLY Lymphedema massage therapy - IRAIDA 0.35 mg tablet - Gauze Bandage 2 X 2 bndg Apply 1 application to affected area twice daily. - Desogestrel-Ethinyl Estradiol (APRI) 0.15-0.03 mg per tablet Take 1 tablet by mouth once daily. - diphenhydrAMINE (BENADRYL) 25 mg tablet Take 1 tablet by mouth every 6 hours as needed. - cetirizine (ZYRTEC) 10 mg tablet Take 1 tablet by mouth once daily. - COMPOUNDED PRESCRIPTION 1 Each once daily. Custom 20-30mmHg knee high compression stockings. Dx: Recurrent cellulitis legs and morbid obesity.Lymph Edema 8am for 2 pairs per year - COMPOUNDED PRESCRIPTION Pt's body checks to be completed once weekly during the day. - COMPOUNDED PRESCRIPTION Weight check q Sun at 8pm and q Fri at 4pm Dx:Q87.1 Problem List As Of Date 08/07/2023 Noted Resolved Other malaise and fatigue [R53.81, R53.83] 08/06/2005 12/13/2013 Other dyspnea and respiratory abnormality [R06.*08/06/2005 12/13/2013 Other alteration of consciousness [R40.4] 08/06/2005 12/13/2013 WEIGHT GAIN, ABNORMAL [R63.5] 08/06/2005 12/13/2013 Prader-Willi syndrome [Q87.11] 08/27/2005 VENOUS INSUFFICIENCY [I87.2] 08/27/2005 12/14/2014 Mild intermittent asthma without complication [* Allergic rhinitis [J30.9] SLEEP APNEA [G47.30] 01/28/2006 12/14/2014 HYPOTHYROIDISM NOS [E03.9] 01/28/2006 12/14/2014 Morbid obesity (HCC) [E66.01] 01/28/2006 12/13/2013 Open wound of knee, leg (except thigh), and ank*12/04/2009 12/13/2013 Amenorrhea [N91.2] 06/18/2011 12/07/2015 Vitamin D deficiency [E55.9] 11/05/2011 Mental status change [R41.82] 01/08/2013 12/13/2013 Other lymphedema [I89.0] 04/26/2013 12/14/2014 BMI 50.0-59.9, adult (HCC) [Z68.43] 10/11/2013 12/14/2014 Venous insufficiency (chronic) (peripheral) [I8*12/14/2014 Acquired hypothyroidism [E03.9] 12/14/2014 Obstructive sleep apnea syndrome [G47.33] 12/14/2014 BMI 40.0-44.9, adult (HCC) [Z68.41] 12/14/2014 02/09/2015 BMI 45.0-49.9, adult (HCC) [Z68.42] 02/09/2015 03/19/2023 Hypothalamic hypogonadism (HCC) [E23.0] 12/07/2015 Lymphedema of left lower extremity [I89.0] 01/16/2016 Lymphedema of right lower extremity [I89.0] 01/16/2016 Venous stasis ulcers (HCC) [I83.009, L97.909] 01/16/201606/17/ (more content not included)... Normal [facility] 05-30-2023 OBEDN Telephone (QUINTEN) CHANTELLJOSE Grimm ([id number]) 1980 F Date Time Provider Department 05/30/23 ELSIE KAPLAN During your visit today, we recorded the following information about you: Ofelia Rodriguez 05/30/2023 12:16 PM Signed Patient verified by name and . Her care provider, Shaunna Cuenca calling to request a mammogram screening order be faxed to [facility] to complete. She can be reached at [phone] with any questions. Please review and advise. María Avila Ma 05/30/2023 2:48 PM Signed Faxed to [facility] as requested. Allergies As of Date: 05/30/2023 Noted Allergy Reaction BEE STING 02/28/2023 10 - Anaphylaxis DILANTIN (PHENYTOIN SODIUM EXTEND*01/28/2006 Date Reviewed: 03/19/2023 Reviewed by: Teresa Yeung APRN.[facility] - Fully Assessed Reason for Visit: Orders [681] Prescriptions as of 05/30/2023 - mometasone-formoterol (DULERA) 100-5 mcg/actuation inhaler Inhale 2 Puffs as instructed two times a day. - budesonide-formoterol (SYMBICORT) 160-4.5 mcg/actuation inhaler INHALE 2 PUFFS BY MOUTH TWICE DAILY ( INSTRUCTED) *SHAKE WELL - clotrimazole (LOTRIMIN) 1 % cream APPLY TOPICALLY TO AFFECTED AREA(S) ON BILATERAL GROIN TWICE DAILY - albuterol HFA (VENTOLIN HFA) 90 mcg/actuation inhaler Inhale 2 Puffs as instructed every 4 hours as needed for wheezing/shortness of breath. - furosemide (LASIX) 20 mg tablet TAKE ONE TABLET BY MOUTH EVERY OTHER DAY FOR LYMPHEDEMA - dktbjfm-hffdktgze-epb walden D3 (OYSTER SHELL CALCIUM-VITAMIN D) 500 mg-5 mcg (200 unit) per tablet Take 1 tablet by mouth two times a day with meals. - ammonium lactate (LAC-HYDRIN) 12 % cream APPLY TOPICALLY TO AFFECTED AREA(S) ON LEGS AT BEDTIME - multivitamin-ferrous fumarate-folic acid (CERTAVITE-ANTIOXIDAN T) Take 1 tablet by mouth once daily. - naproxen (NAPROSYN) 500 mg tablet TAKE ONE TABLET BY MOUTH TWICE DAILY NEEDED FOR PAIN/INFLAMMATION OF KNEE *TAKE WITH FOOD* *STAFF REORDER, 4 DAYS IN ADVANCE* - levothyroxine (SYNTHROID) 100 mcg tablet take one tablet by mouth daily one hour before breakfast - fluticasone (FLONASE) 50 mcg/actuation nasal spray INSTILL 2 SPRAYS IN EACH NOSTRIL DAILY - Idong-1-DPY-EPA-Fish Oil 1,000 mg (120 mg-180 mg) cap TAKE ONE CAPSULE BY MOUTH DAILY - nystatin (MYCOSTATIN) powder APPLY TOPICALLY TWICE DAILY TO AFFECTED AREA(S) ON ABDOMINAL FOLDS *EXTERNAL USE ONLY* - potassium chloride ER (KLOR-CON M10) 10 mEq tablet TAKE ONE TABLET BY MOUTH EVERY OTHER DAY ( WITH BREAKFAST) ON DAYS WHEN YOU TAKE LASIX (FUROSEMIDE) - EPINEPHrine (EPIPEN) 0.3 mg/0.3 mL auto-injector INJECT 1 PEN INTO LATERAL THIGH DIRECTED FOR ALLERGIC REACTIONS TO BEE/WASP STINGS MAY REPEAT IN 5-15 MINUTES IF SYMPTOMS PERSIST * *STAFF REORDER, 4 DAYS IN ADVANCE* - acetaminophen (TYLENOL EXTRA STRENGTH) 500 mg tablet Take 2 tablets by mouth every 8 hours as needed for pain (For knee pain). - MEDICAL SUPPLY Lymphedema massage therapy - IRAIDA 0.35 mg tablet - Gauze Bandage 2 X 2 bndg Apply 1 application to affected area twice daily. - Desogestrel-Ethinyl Estradiol (APRI) 0.15-0.03 mg per tablet Take 1 tablet by mouth once daily. - diphenhydrAMINE (BENADRYL) 25 mg tablet Take 1 tablet by mouth every 6 hours as needed. - cetirizine (ZYRTEC) 10 mg tablet Take 1 tablet by mouth once daily. - COMPOUNDED PRESCRIPTION 1 Each once daily. Custom 20-30mmHg knee high compression stockings. Dx: Recurrent cellulitis legs and morbid obesity.Lymph Edema 8am for 2 pairs per year - COMPOUNDED PRESCRIPTION Pt's body checks to be completed once weekly during the day. - COMPOUNDED PRESCRIPTION Weight check q Sun at 8pm and q Fri at 4pm Dx:Q87.1 Problem List As Of Date 05/30/2023 Noted Resolved Other malaise and fatigue [R53.81, R53.83] 08/06/2005 12/13/2013 Other dyspnea and respiratory abnormality [R06.*08/06/2005 12/13/2013 Other alteration of consciousness [R40.4] 08/06/2005 12/13/2013 WEIGHT GAIN, ABNORMAL [R63.5] 08/06/2005 12/13/2013 Prader-Willi syndrome [Q87.11] 08/27/2005 VENOUS INSUFFICIENCY [I87.2] 08/27/2005 12/14/2014 Mild intermittent asthma without complication [* Allergic rhinitis [J30.9] SLEEP APNEA [G47.30] 01/28/2006 12/14/2014 HYPOTHYROIDISM NOS [E03.9] 01/28/2006 12/14/2014 Morbid obesity (HCC) [E66.01] 01/28/2006 12/13/2013 Open wound of knee, leg (except thigh), and ank*12/04/2009 12/13/2013 Amenorrhea [N91.2] 06/18/2011 12/07/2015 Vitamin D deficiency [E55.9] 11/05/2011 Mental status change [R41.82] 01/08/2013 12/13/2013 Other lymphedema [I89.0] 04/26/2013 12/14/2014 BMI 50.0-59.9, adult (HCC) [Z68.43] 10/11/2013 12/14/2014 Venous insufficiency (chronic) (peripheral) [I8*12/14/2014 Acquired hypothyroidism [E03.9] 12/14/2014 Obstructive sleep apnea syndrome [G47.33] 12/14/2014 BMI 40.0-44.9, adult (HCC) [Z68.41] 12/14/2014 02/09/2015 BMI 45.0-49.9, adult (HCC) [Z68.42] 02/09 (more content not included)... [facility]INTMWS[facility] CHANTELLISAAKJESUS Hanna ([id number]) 1980 F Date Time Provider Department 05/26/23 SHERIF THAKUR INTMWS During your visit today, we recorded the following information about you: Eulalia Laureano RN 05/26/2023 11:36 AM Signed Prior Authorization Documentation Prior authorization requested for the following medication: Medication: Symbicort Provider: Teresa Yeung Insurance Company Name: Medicare A/B and Medicaid secondary Insurance Company Phone number: Not listed Patient ID number: Medicare: [id number] Medicaid: [id number] Pharmacy Name: [facility] Telephone number: [phone]. Caregiver calls to request. Reports pharmacy is also faxing request. RODRÍGUEZ Braden Janice, LPN 05/26/2023 1:28 PM Signed Jose Abdul ([place]: [id number]) - [phone] Budesonide-Formoterol Fumarate 160-4.5MCG/ACT aerosol Status: PA Request Created: March 13, 2023 [id number] Sent: May 26, 2023 Radha Funk LPN 05/26/2023 3:18 PM Signed The budesonide formoterol (symbicort) was denied. Denied today This drug is not covered on the formulary. We are denying your request because we do not show that you have tried at least 2 covered drugs that can treat your condition. You have already tried Advair. Other covered drugs are: Breo Ellipta inhalation blister with device (50-25 MCG/DOSE, 100-25 MCG/DOSE, 200-25 MCG/DOSE), Dulera inhalation HFA aerosol inhaler (50-5 MCG/ACTUATION, 100-5 MCG/ACTUATION, 200-5 MCG/ACTUATION). Drug Budesonide-Formoterol Fumarate 160-4.5MCG/ACT aerosol Message left for pts caregiver to return call to a nurse. Elsie Kaplan APRN.OBED 05/29/2023 11:10 AM Signed Dulera ordered in equivalent dosing to symbicort. Call retirement to give below information and change in inhaler. Patient needs to follow up in 4 weeks. Te evaluate how she is doing on new inhaler. Thank you Elsie Kaplan APRN.María Mchugh MA 05/29/2023 11:33 AM Signed Tried calling warehouse engineer, call was dropped. María Avila MA 06/02/2023 3:30 PM Signed Left message for return call. Allergies As of Date: 05/26/2023 Noted Allergy Reaction BEE STING 02/28/2023 10 - Anaphylaxis DILANTIN (PHENYTOIN SODIUM EXTEND*01/28/2006 Date Reviewed: 03/19/2023 Reviewed by: Teresa Yeung APRN.[employer] - Fully Assessed Reason for Visit: Insurance Authorization [[id number]] Order(s):mometasone-f ormoterol (DULERA) 100-5 mcg/actuation inhalerInhale 2 Puffs as instructed two times a day.Disp: 13 gRfl: 1 Prescriptions as of 06/09/2023 - mometasone-formoterol (DULERA) 100-5 mcg/actuation inhaler Inhale 2 Puffs as instructed two times a day. - budesonide-formoterol (SYMBICORT) 160-4.5 mcg/actuation inhaler INHALE 2 PUFFS BY MOUTH TWICE DAILY ( INSTRUCTED) *SHAKE WELL - clotrimazole (LOTRIMIN) 1 % cream APPLY TOPICALLY TO AFFECTED AREA(S) ON BILATERAL GROIN TWICE DAILY - albuterol HFA (VENTOLIN HFA) 90 mcg/actuation inhaler Inhale 2 Puffs as instructed every 4 hours as needed for wheezing/shortness of breath. - furosemide (LASIX) 20 mg tablet TAKE ONE TABLET BY MOUTH EVERY OTHER DAY FOR LYMPHEDEMA - dopzsac-idcfxfhfm-csa walden D3 (OYSTER SHELL CALCIUM-VITAMIN D) 500 mg-5 mcg (200 unit) per tablet Take 1 tablet by mouth two times a day with meals. - ammonium lactate (LAC-HYDRIN) 12 % cream APPLY TOPICALLY TO AFFECTED AREA(S) ON LEGS AT BEDTIME - multivitamin-ferrous fumarate-folic acid (CERTAVITE-ANTIOXIDAN T) Take 1 tablet by mouth once daily. - naproxen (NAPROSYN) 500 mg tablet TAKE ONE TABLET BY MOUTH TWICE DAILY NEEDED FOR PAIN/INFLAMMATION OF KNEE *TAKE WITH FOOD* *STAFF REORDER, 4 DAYS IN ADVANCE* - levothyroxine (SYNTHROID) 100 mcg tablet take one tablet by mouth daily one hour before breakfast - fluticasone (FLONASE) 50 mcg/actuation nasal spray INSTILL 2 SPRAYS IN EACH NOSTRIL DAILY - Cecoi-7-JRT-EPA-Fish Oil 1,000 mg (120 mg-180 mg) cap TAKE ONE CAPSULE BY MOUTH DAILY - nystatin (MYCOSTATIN) powder APPLY TOPICALLY TWICE DAILY TO AFFECTED AREA(S) ON ABDOMINAL FOLDS *EXTERNAL USE ONLY* - potassium chloride ER (KLOR-CON M10) 10 mEq tablet TAKE ONE TABLET BY MOUTH EVERY OTHER DAY ( WITH BREAKFAST) ON DAYS WHEN YOU TAKE LASIX (FUROSEMIDE) - EPINEPHrine (EPIPEN) 0.3 mg/0.3 mL auto-injector INJECT 1 PEN INTO LATERAL THIGH DIRECTED FOR ALLERGIC REACTIONS TO BEE/WASP STINGS MAY REPEAT IN 5-15 MINUTES IF SYMPTOMS PERSIST * *STAFF REORDER, 4 DAYS IN ADVANCE* - acetaminophen (TYLENOL EXTRA STRENGTH) 500 mg tablet Take 2 tablets by mouth every 8 hours as needed for pain (For knee pain). - MEDICAL SUPPLY Lymphedema massage therapy - IRAIDA 0.35 mg tablet - Gauze Bandage 2 X 2 bndg Apply 1 application to affected area twice daily. - Desogestrel-Ethinyl Estradiol (APRI) 0.15-0.03 mg per tablet Take 1 tablet by mouth once daily. - diphenhydrAMINE (BENADRYL) (more content not included)... Normal [facility] CNOVon 03-19-2023 CNOV Office Visit (INTMWS ) JOSE ABDUL ([id number]) 1980 F Date Time Provider Department 03/19/23 2:40 PM TERESA YEUNG During your visit today, we recorded the following information about you: Pulse Blood pressure Weight Height 77/minute 142/95 117 kg 1.435 m Teresa Yeung APRN.MANAGING DIRECTOR [employer] 03/19/2023 4:20 PM Signed CHIEF COMPLAINT: Patient presents with: Physical: Forms need completed HISTORY: Jose Abdul is a 42 year old female who presents 03/19/2023 for her Yearly Physical Exam. They are here today for a wellness exam. Generally feels well and does not have complaints. Is able to complete ADL's with some assist. She currently lives in a home managed by [facility] and is accompanied by a care transition coordinator today. 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 Other Providers: Podiatry, Dr. Lyubov Fontenot with candy department manager with [facility] Depression Screen Q1: Over the past two weeks, have you felt down, depressed or hopeless? No Q2: Over the past two weeks, have you felt little interest or pleasure in doing things? No Home status: Lives with Current exercise habits: active with special [employer] Dietary habits: Cora pryor Hearing difficulties: no Safe in current home environment: Yes Tobacco: NO ETOH: No RELIEF MASTER History: LMP: Patient's last menstrual period was 05/13/2007. 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 2to pulonary fibrosis Thrombophlebitis Unspecified intellectual disabilities mild Viral pneumonia, unspecified LLL Family Medical History: FAMILY HISTORY Problem Relation Age of Onset Diabetes Maternal Grandmother Social History: Social History Tobacco Use Smoking status: Never Smokeless tobacco: Never Substance Use Topics Alcohol use: No Drug use: No Allergies: ALLERGIES Allergen Reactions Bee Sting Anaphylaxis Dilantin [Phenytoin* Medications: Current Outpatient Medications Medication Sig albuterol HFA (VENTOLIN HFA) 90 mcg/actuation inhaler Inhale 2 Puffs as instructed every 4 hours as needed for wheezing/shortness of breath. furosemide (LASIX) 20 mg tablet TAKE ONE TABLET BY MOUTH EVERY OTHER DAY FOR LYMPHEDEMA cjazibn-etlmadlsd-gsl walden D3 (OYSTER SHELL CALCIUM-VITAMIN D) 500 mg-5 mcg (200 unit) per tablet Take 1 tablet by mouth two times a day with meals. ammonium lactate (LAC-HYDRIN) 12 % cream APPLY TOPICALLY TO AFFECTED AREA(S) ON LEGS AT BEDTIME multivitamin-ferrous fumarate-folic acid (CERTAVITE-ANTIOXIDAN T) Take 1 tablet by mouth once daily. naproxen (NAPROSYN) 500 mg tablet TAKE ONE TABLET BY MOUTH TWICE DAILY NEEDED FOR PAIN/INFLAMMATION OF KNEE *TAKE WITH FOOD* *STAFF REORDER, 4 DAYS IN ADVANCE* levothyroxine (SYNTHROID) 100 mcg tablet take one tablet by mouth daily one hour before breakfast fluticasone (FLONASE) 50 mcg/actuation nasal spray INSTILL 2 SPRAYS IN EACH NOSTRIL DAILY Pzsti-1-YUW-EPA-Fish Oil 1,000 mg (120 mg-180 mg) cap TAKE ONE CAPSULE BY MOUTH DAILY budesonide-formoterol (SYMBICORT) 160-4.5 mcg/actuation inhaler INHALE 2 PUFFS BY MOUTH TWICE DAILY ( INSTRUCTED) *SHAKE WELL nystatin (MYCOSTATIN) powder APPLY TOPICALLY TWICE DAILY TO AFFECTED AREA(S) ON ABDOMINAL FOLDS *EXTERNAL USE ONLY* potassium chloride ER (KLOR-CON M10) 10 mEq tablet TAKE ONE TABLET BY MOUTH EVERY OTHER DAY ( WITH BREAKFAST) ON DAYS WHEN YOU TAKE LASIX (FUROSEMIDE) EPINEPHrine (EPIPEN) 0.3 mg/0.3 mL auto-injector INJECT 1 PEN INTO LATERAL THIGH DIRECTED FOR ALLERGIC REACTIONS TO BEE/WASP STINGS MAY REPEAT IN 5-15 MINUTES IF SYMPTOMS PERSIST * *STAFF REORDER, 4 DAYS IN ADVANCE* acetaminophen (TYLENOL EXTRA STRENGTH) 500 mg tablet Take 2 tablets by mouth every 8 hours as needed for pain (For knee pain). IRAIDA 0.35 mg tablet Desogestrel-Ethinyl Estradiol (APRI) 0.15-0.03 mg per tablet Take 1 tablet by mouth once daily. diphenhydrAMINE (BENADRYL) 25 mg tablet Take 1 tablet by mouth every 6 hours as needed. cetirizine (ZYRTEC) 10 mg tablet Take 1 tablet by mouth once daily. clotrimazole (LOTRIMIN) 1 % cream APPLY TOPICALLY TO AFFECTED AREA(S) ON BILATERAL GROIN TWICE DAILY MEDICAL SUPPLY Lymphedema massage therapy Gauze Bandage 2 X 2 bndg Apply 1 application to affected area twice daily. COMPOUNDED PRESCRIPTION 1 Each once daily. Custom 20-30mmHg knee high compression stockings. (more content not included)... Normal [facility] CNOVon 02-28-2023 CNOV Office Visit (INTMWS ) JOSE ABDUL ([id number]) 1980 F Date Time Provider Department 02/28/23 1:40 PM TERESA YEUNG INTMWS During your visit today, we recorded the following information about you: Temperature Pulse Blood pressure Weight 98.3 degrees 62/minute 120/71 112 kg Teresa Yeung APRN.MANAGING DIRECTOR ATLAS 02/28/2023 2:10 PM Signed SUBJECTIVE Jose Abdul is a 42 year old female here today for acute concern. Chief Complaint Patient presents with: irriatated spot near vulva HPI Jose Abdul is a 42 year old female. Here today, accompanied by a care transition coordinator. Concerns of an irritated spot near her vulva. Some burning with wiping after going to the restroom. Some spots of bleeding after wiping. Looks like a pimple per nursing staff. Saw Yazan Can for this once before and was given a pill and a lotion for this. Her medications were reviewed today and her list is now up to date. Medications Current Outpatient Medications Medication Sig clotrimazole (LOTRIMIN) 1 % cream APPLY TOPICALLY TO AFFECTED AREA(S) ON BILATERAL GROIN TWICE DAILY albuterol HFA (VENTOLIN HFA) 90 mcg/actuation inhaler Inhale 2 Puffs as instructed every 4 hours as needed for wheezing/shortness of breath. furosemide (LASIX) 20 mg tablet TAKE ONE TABLET BY MOUTH EVERY OTHER DAY FOR LYMPHEDEMA hdaaenl-oobkavxlv-dyo walden D3 (OYSTER SHELL CALCIUM-VITAMIN D) 500 mg-5 mcg (200 unit) per tablet Take 1 tablet by mouth two times a day with meals. ammonium lactate (LAC-HYDRIN) 12 % cream APPLY TOPICALLY TO AFFECTED AREA(S) ON LEGS AT BEDTIME multivitamin-ferrous fumarate-folic acid (CERTAVITE-ANTIOXIDAN T) Take 1 tablet by mouth once daily. naproxen (NAPROSYN) 500 mg tablet TAKE ONE TABLET BY MOUTH TWICE DAILY NEEDED FOR PAIN/INFLAMMATION OF KNEE *TAKE WITH FOOD* *STAFF REORDER, 4 DAYS IN ADVANCE* levothyroxine (SYNTHROID) 100 mcg tablet take one tablet by mouth daily one hour before breakfast fluticasone (FLONASE) 50 mcg/actuation nasal spray INSTILL 2 SPRAYS IN EACH NOSTRIL DAILY Deooe-7-BQQ-EPA-Fish Oil 1,000 mg (120 mg-180 mg) cap TAKE ONE CAPSULE BY MOUTH DAILY budesonide-formoterol (SYMBICORT) 160-4.5 mcg/actuation inhaler INHALE 2 PUFFS BY MOUTH TWICE DAILY ( INSTRUCTED) *SHAKE WELL nystatin (MYCOSTATIN) powder APPLY TOPICALLY TWICE DAILY TO AFFECTED AREA(S) ON ABDOMINAL FOLDS *EXTERNAL USE ONLY* potassium chloride ER (KLOR-CON M10) 10 mEq tablet TAKE ONE TABLET BY MOUTH EVERY OTHER DAY ( WITH BREAKFAST) ON DAYS WHEN YOU TAKE LASIX (FUROSEMIDE) EPINEPHrine (EPIPEN) 0.3 mg/0.3 mL auto-injector INJECT 1 PEN INTO LATERAL THIGH DIRECTED FOR ALLERGIC REACTIONS TO BEE/WASP STINGS MAY REPEAT IN 5-15 MINUTES IF SYMPTOMS PERSIST * *STAFF REORDER, 4 DAYS IN ADVANCE* acetaminophen (TYLENOL EXTRA STRENGTH) 500 mg tablet Take 2 tablets by mouth every 8 hours as needed for pain (For knee pain). IRAIDA 0.35 mg tablet Desogestrel-Ethinyl Estradiol (APRI) 0.15-0.03 mg per tablet Take 1 tablet by mouth once daily. diphenhydrAMINE (BENADRYL) 25 mg tablet Take 1 tablet by mouth every 6 hours as needed. cetirizine (ZYRTEC) 10 mg tablet Take 1 tablet by mouth once daily. sulfamethoxazole-trim ethoprim (BACTRIM DS) 800-160 mg per tablet Take 1 tablet by mouth two times a day for 7 days. MEDICAL SUPPLY Lymphedema massage therapy Gauze Bandage 2 X 2 bndg Apply 1 application to affected area twice daily. COMPOUNDED PRESCRIPTION 1 Each once daily. Custom 20-30mmHg knee high compression stockings. Dx: Recurrent cellulitis legs and morbid obesity.Lymph Edema 8am for 2 pairs per year COMPOUNDED PRESCRIPTION Pt's body checks to be completed once weekly during the day. COMPOUNDED PRESCRIPTION Weight check q Sun at 8pm and q Fri at 4pm Dx:Q87.1 (Patient not taking: No sig reported) No current facility-administered medications for this visit. 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 When she goes to we will see hospital she has a multi disciplinary care team that works with her. It includes (more content not included)... Normal [facility] Tal 02-26-2023 OBEDN Telephone (FAMPWS) JOSE ABDUL ([id number]) 1980 F Date Time Provider Department 02/26/23 TERESA YEUNG During your visit today, we recorded the following information about you: Reji Tipton LPN 02/26/2023 10:59 AM Signed Clarence Eaton from [facility] calling advising that they visit pt weekly for observation assessments mainly for skin assessment d/t skin folds. He advises pt mentioned at visit today that she has an area that when she wipes with toilet paper and it rubs the area, it bleeds, itches and is uncomfortable. Does not bleed at any other time.pt thinks she had an area like this in the past and Yazan Can NP had given pt a pill and a lotion or cream for this. Clarence advises he looked at the area but did not have a light to see area clearly. Area is about 2-3 cm from pt's vulva and looks like a very small pimple about 0.5 cm. It is not open and there is no redness or drainage. He wasn't sure if pt needed an atb. Advised him pt really should be seen to be evaluated. Advised him this nurse would contact pt. Clarence would like an update if any medication changes are made so he can add it to pt's chart. Spoke with pt's house manage and scheduled appointment with Teresa Yeung NP on 02/28/23. Reji Tipton LPN Allergies As of Date: 02/26/2023 Noted Allergy Reaction BEES,WASPS [Other] 10/22/2005 7 - Swelling DILANTIN (PHENYTOIN SODIUM EXTEND*01/28/2006 mosquitoes [Other] 01/28/2006 Date Reviewed: 10/23/2022 Reviewed by: María Avila Ma - Fully Assessed Reason for Visit: Derm Problem [33] Prescriptions as of 02/26/2023 - albuterol HFA (VENTOLIN HFA) 90 mcg/actuation inhaler Inhale 2 Puffs as instructed every 4 hours as needed for wheezing/shortness of breath. - furosemide (LASIX) 20 mg tablet TAKE ONE TABLET BY MOUTH EVERY OTHER DAY FOR LYMPHEDEMA - fvqdalq-dxbocbuqc-bzp walden D3 (OYSTER SHELL CALCIUM-VITAMIN D) 500 mg-5 mcg (200 unit) per tablet Take 1 tablet by mouth two times a day with meals. - ammonium lactate (LAC-HYDRIN) 12 % cream APPLY TOPICALLY TO AFFECTED AREA(S) ON LEGS AT BEDTIME - multivitamin-ferrous fumarate-folic acid (CERTAVITE-ANTIOXIDAN T) Take 1 tablet by mouth once daily. - naproxen (NAPROSYN) 500 mg tablet TAKE ONE TABLET BY MOUTH TWICE DAILY NEEDED FOR PAIN/INFLAMMATION OF KNEE *TAKE WITH FOOD* *STAFF REORDER, 4 DAYS IN ADVANCE* - levothyroxine (SYNTHROID) 100 mcg tablet take one tablet by mouth daily one hour before breakfast - fluticasone (FLONASE) 50 mcg/actuation nasal spray INSTILL 2 SPRAYS IN EACH NOSTRIL DAILY - Lklcp-8-KXJ-EPA-Fish Oil 1,000 mg (120 mg-180 mg) cap TAKE ONE CAPSULE BY MOUTH DAILY - budesonide-formoterol (SYMBICORT) 160-4.5 mcg/actuation inhaler INHALE 2 PUFFS BY MOUTH TWICE DAILY ( INSTRUCTED) *SHAKE WELL - nystatin (MYCOSTATIN) powder APPLY TOPICALLY TWICE DAILY TO AFFECTED AREA(S) ON ABDOMINAL FOLDS *EXTERNAL USE ONLY* - potassium chloride ER (KLOR-CON M10) 10 mEq tablet TAKE ONE TABLET BY MOUTH EVERY OTHER DAY ( WITH BREAKFAST) ON DAYS WHEN YOU TAKE LASIX (FUROSEMIDE) - EPINEPHrine (EPIPEN) 0.3 mg/0.3 mL auto-injector INJECT 1 PEN INTO LATERAL THIGH DIRECTED FOR ALLERGIC REACTIONS TO BEE/WASP STINGS MAY REPEAT IN 5-15 MINUTES IF SYMPTOMS PERSIST * *STAFF REORDER, 4 DAYS IN ADVANCE* - acetaminophen (TYLENOL EXTRA STRENGTH) 500 mg tablet Take 2 tablets by mouth every 8 hours as needed for pain (For knee pain). - MEDICAL SUPPLY Lymphedema massage therapy - IRAIDA 0.35 mg tablet - clotrimazole (LOTRIMIN, CLOTRIM) 1 % cream APPLY TOPICALLY TO AFFECTED AREA(S) ON BILATERAL GROIN TWICE DAILY - Gauze Bandage 2 X 2 bndg Apply 1 application to affected area twice daily. - Desogestrel-Ethinyl Estradiol (APRI) 0.15-0.03 mg per tablet Take 1 tablet by mouth once daily. - diphenhydrAMINE (BENADRYL) 25 mg tablet Take 1 tablet by mouth every 6 hours as needed. - cetirizine (ZYRTEC) 10 mg tablet Take 1 tablet by mouth once daily. - COMPOUNDED PRESCRIPTION 1 Each once daily. Custom 20-30mmHg knee high compression stockings. Dx: Recurrent cellulitis legs and morbid obesity.Lymph Edema 8am for 2 pairs per year - COMPOUNDED PRESCRIPTION Pt's body checks to be completed once weekly during the day. - COMPOUNDED PRESCRIPTION Weight check q Sun at 8pm and q Fri at 4pm Dx:Q87.1 Problem List As Of Date 02/26/2023 Noted Resolved Other malaise and fatigue [R53.81, R53.83] 08/06/2005 12/13/2013 Other dyspnea and respiratory abnormality [R06.*08/06/2005 12/13/2013 Other alteration of consciousness [R40.4] 08/06/2005 12/13/2013 WEIGHT GAIN, ABNORMAL [R63.5] 08/06/2005 12/13/2013 Prader-Willi syndrome [Q87.11] 08/27/2005 VENOUS INSUFFICIENCY [I87.2] 08/27/2005 12/14/2014 Mild intermittent asthma without complication [* Allergic rhinitis [J30.9] SLEEP APNEA [G47.30] 01/28/2006 (more content not included)... Normal [facility] General/Metabolic - Estabs nory 12-05-2022 General/Metabolic - Established Provider Impressions Cristina is a 42-year-old female with PWS, here for a follow-up visit. A review on management of adults with PWS has been published recently (PMID: 72130018). When systematically screened for common conditions, some diagnoses are often underdiagnosed such as hypogonadism and vitamin D deficiency. Today, we discussed following health issues: 1. Obesity and metabolic syndrome: Individuals with PWS are at increased risk of obesity and metabolic syndrome and their complications such as atherosclerotic diseases. She is on lasix but no other hypertensives. BP was not measured today. Her weight has increased 4 lbs since the last visit. Plan: - Continue 800 calories/day for now. Recommend monthly weight at facility and report to us. Please see RD note from today. See RD in 1 year virtually for consideration of changing her dietary recommendations. - Encourage increasing physical activity with walking videos or chair exercise videos online. She is allowed to walk alone on the road near facility, we encouraged this. Also encouraged participation in sports activities at her retirement. - Management of HTN per PCP. 2. At risk for endocrinopathies: Adults with PWS are at increased risk for diabetes, hypercholesterolemia, growth hormone deficiency, hypogonadism, and rarely, adrenal insufficiency. 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 Plan: - Annual TSH, lipid profile, HbA1C through PCP - See Rim Turning Machine Operator for OCP 3. Bone health Adults with PWS have increased risk of scoliosis, osteopenia/osteoporos is due to multiple risk factors such as undiagnosed vitamin D and hypogonadism. She has no back pain or change in body posture. Although there is no recommended age to initiate bone density screening for PWS, many individuals at her age start to have bone mineral density issues. Plan: - Annual 25-OH-D through PCP - Consider DEXA scan, she declined at today's visit 4. 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 Continue seeing PCP and Sleep Medicine. Plan: - I will defer additional monitoring and referral, if needed, to Dr. Thakur. Other health issues and recommendations - Body temperature dysregulation: Adults with PWS have increased risk of hypothermia. Preventative measures (e.g., thermostat, keep warm during winter) are recommended. 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 - Regular dental and vision care - Continue management of lymphedema by PCP. She has history of superficial thrombophlebitis last year. Signs and symptoms of DVT have been previously discussed. Individuals with PWS have increased risk of venous thromboembolism. - Other age-appropriate health maintenance including vaccination per PCP Follow-up 1 one year Chief Complaint Follow up Accompanied by child care development specialist. History of Present Illness PWS CLINIC Deepali is a 42 year old female who has presented to the PWS multidisciplinary clinic at [facility]. She is accompanied by her warehouse engineer, Anali. History was obtained by the patient, Anali, and review of medical records. She was last seen here in 11/2021, and was seen by Dr. Mohamud, Meme Ly MS, RD, LDN. At her last visit, we requested she follow up in 6 months, but this was pushed back to today instead. She declined a referral with Dr. Zaida Alfaro today, as she has in the past. PCP: Dr. Sherif Thakur at [facility], fax number [phone], is currently seeing an CHILD DEVELOPMENT PROFESSOR named Older at this office Interval History: She says that she feels good , and has not been sick. Anali does not report any changes in Deepali's mood, behavior, or health. She sees Dr. Thakur every 3 months Diet, weight, and physical activity: Weight/BMI: This visit 240 lbs, 53.24 kg/m2 Last visit (11/29/2021) 236 lbs, 52.42 kg/m2. Please see full dietary details from a separate RD's note. Now she is still on on 800 loraine/day of diet. She is not regularly weighed. Level of daily physical activity is low. She exercises mostly when she attends the workshop on Friday and Friday, where she works out (e.g., [employer], [place]) half a day. She just received a permission to walk on the road by herself but rarely does so. Behavioral concerns: None, skin picking not assessed Sleep: She has a diagnosis of DACIA but does not use her CPAP, only when she is home with her mother every 2 weekends. Bone health: Vitamin D: DEXA not available, declined today Endocrinopathies: Diagnosis of hypogonadotropic hypogonadism, on OCP prescribed by Gynecology. A1c: 5.4, 12/2021 LDL: 94, 12/2021 TSH: 2.5, 10/2022 Others: - Some of annual labs may not be available from our medical records - they may be accessible on [employer], and will hopefully be more available on [employer]. - Seeing Gynecology for OCP (for bone health). Dx of uterine prolapse. - Asthma, using inhalers twice a day. She denies dys (more content not included)... Normal [facility] 12-05-2022 Nutrition-Adult History of Present Illness Food/Nutrition related history: [facility] Nutrition Assessment in PWS Clinic Date of Visit: 12/05/2022 Out-Patient Clinic: Prader-Willi Syndrome Type of OP Visit: Follow-up via real-time TeleHealth Video Visit (pt in clinic with doctor and RD on video) Reason for Nutrition Assessment: Nutrition management for medical nutrition therapy for PWS complications PROBLEM LIST/DX - Prader-Willi Syndrome (DX: Q87.11) - Hyperphagia - Obesity Past Medical HX: reviewed and discussed history with team (see problem list) Allergies: drug/food allergies reviewed and discussed with team (see allergy list) Current Medications: medications/supplemen ts reviewed and discussed with team (see medication list) Biochemical and Diagnostic Testing: testing was reviewed and discussed with team NUTRITION HISTORY AND INTAKE: Pt and caregiver (Anali - [employer] Teacher) present in out-patient PWS clinic for a scheduled f/u clinic visit. 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 [facility] packed meals home with her. Food Seeking Behavior: yes, food locked up and monitored Food Access Secured: yes DIET HISTORY AND DAILY NUTRITIONAL INTAKE: - Dietary Restrictions: high kcals - Vitamin/Mineral/Suppl ements: MV w/iron - Feeding Route: all PO intake - Enteral Feedings: none - Kcal Counting: goal is 800 daily 24 hr Diet Recall: planned menus but unable to elaborate. States similar to last year - Location of Meals: kitchen Daily Activities: light walking Anthropometrics: - Weight: 109 kg - Height: 143 cm - IBW/BMI: 205 %/above IBW - Weight Velocity: 4 lb gain in 12 months - BMI: 53 Classifications and Assessment of Obesity - Class III: BMI >140% or BMI >40 Prader-Willi Syndrome Energy Requirements: (Height: 143 cm) - Wgt Speeder Reduction: 7 kcals/cm height = 800-906 kcals/faster wgt loss Est. Daily DRI Nutrition/Disease Reference Point/Standard Needs: - FLUID Needs: 3270 mL - ENERGY Needs: 900 kcals daily = 7 kcals/cm height = 800-906 kcals/faster wgt loss - DRI PROTEIN Needs: 45 grams Adequate Nutrient Intake/Growth and Assessment Compared to Standards/Needs: Meeting intake compared to needs by >100%, pt continually working on goals by next nutrition reassessment as outlined in the Nutrition Plan of Care Process/Disease Standards per age/disease processes standard needs Nutrition-Focused Physical and Visual Exam Assessment: Via real-time video pt appears to be well nourished and fat stores, muscle mass, fluid balance and macro/micronutrients, were normal appearing, with no signs of malnutrition during this exam. Patient does not demonstrate evidence of malnutrition based on AND/ASPEN criteria. Physical exam was collaborated with attending MD in clinic with pt. Growth Assessment, Intake and Malnutrition Indicators: - Calorie Intake: exceeding goal by >200% Growth and Intake Assessment Summary Compared to Standards: Pt is exceeding individual growth/weight standards/goals compared to personalized and standard reference points set by ASPEN/AND/WHO/GMDI/Cu rrent Disease Specific Literature. Growth parameters/goals may need adjusted for clinical dx/condition. Pts daily nutritional intake is exceeding pts daily nutritional needs with adjustments are being made and monitored. PES/DX Statement: Excessive energy intake related to PWS as evidenced by genetic testing NUTRITION ASSESSMENT Pt is a 42yo female with know PWS. Pt has gained 4lbs since last year. May be worth exploring a therapeutic exercise protein if pt would participate. Nutrition Status: High nutritional risk related to obesity health complications. RD will continue to monitor, evaluate and reassess nutritional status as needed. Nutrition Plan of Care was discussed with the team NUTRITION INTERVENTION AND PLAN: - Limit daily calories: 900 - Diet Principals: higher protein, carb control, calorie restriction - Protein: 45 grams protein and 100 grams Carbs daily - Fluids: 106 ounces daily - Continue Complete Multi-Vitamins with iron daily (no gummy) - Continue 1000 IU Vitamin D daily and 500 mg Calcium, twice daily - Continue to keep a daily food log to count calories - Increase Physical Activity to 60 mins daily (15 mins/4 times daily) with resistance training - Fiber Goal: 25 grams daily - Check weight at home weekly, record and report to dietitian - Send copies of [facility] Food Menus and pts actual % of intake for 3-5 days Contact the dietitian with any questions or concerns with diet Follow up in Prader-Willi Clinic in 12 months or when recommended by PWS Team NUTRITION MONITORING, EVALUATION AND GOALS - Rate of wgt gain or wgt loss - Nutrition related clinical history with intake compared to needs - Evaluate anthropometric measures and z-scores with previous status and reference standards - Biochemical data, medical tests and procedure findings - Nu (more content not included)... Normal [facility] Tobacco Screening.on 023 Adult depression screening assessment No [facility] 1500 Work Phone: Tobacco use status [facility] b) No [facility] 1500 Work Phone: Tobacco Screening.on 022 Adult depression screening assessment No [facility] 1100 DO Work Phone: Fall risk assessment a) No falls within the last year [facility] 1100 DO Work Phone: Tobacco use status [facility] b) No [facility] 1100 DO Work Phone: US Hip - lefton 05-31-2021 IMPRESSION: Unremarkable ultrasound of the anterior left hip Senior Mechanical Project Manager: NADIA Transcribe Date/Time: May 31 2021 1:54P Dictated by : PAM MUNIZ MD This examination was interpreted and the report reviewed and electronically signed by: GUS SAGE MD on May 31 2021 2:05PM [facility] DIVISION OF RADIOLOGY * * *Final Report* * * DATE OF EXAM: May 31 2021 1:48PM [place] [id number] - HIP LT / PROCEDURE REASON: Left groin pain * * * * Physician Interpretation * * * * MSK_US LEFT ANTERIOR HIP ULTRASOUND: CLINICAL INFORMATION:Left groin pain TECHNIQUE: Christensen-scale real-time ultrasound of the anterior hip with dynamic imaging and power Doppler examination was performed. Images were saved to the permanent image archive. [id number]. COMPARISON: None FINDINGS: ANTERIOR HIP JOINT: No joint effusion or synovitis. RECTUS FEMORIS TENDON: Tendinosis: No significant tendinosis. - Tearing:None. Power Doppler: None. Bony Attachment: No hypertrophic changes. ILIOPSOAS TENDON: Tendinosis: No significant tendinosis. - Tearing:None. Power Doppler: None. ILIOPSOAS BURSA: Normal. LATERAL FEMORAL CUTANEOUS NERVE: Not well seen. DIVISION OF RADIOLOGY Provider, [facility] Marcia [facility] - 05/31/2021 * * *Final Report* * * DATE OF EXAM: May 31 2021 1:48PM [facility] [id number] - US HIP LT / PROCEDURE REASON: Left groin pain * * * * Physician Interpretation * * * * MSK_US LEFT ANTERIOR HIP ULTRASOUND: CLINICAL INFORMATION:Left groin pain TECHNIQUE: Christensen-scale real-time ultrasound of the anterior hip with dynamic imaging and power Doppler examination was performed. Images were saved to the permanent image archive. [id number]. COMPARISON: None FINDINGS: ANTERIOR HIP JOINT: No joint effusion or synovitis. RECTUS FEMORIS TENDON: Tendinosis: No significant tendinosis. - Tearing:None. Power Doppler: None. Bony Attachment: No hypertrophic changes. ILIOPSOAS TENDON: Tendinosis: No significant tendinosis. - Tearing:None. Power Doppler: None. ILIOPSOAS BURSA: Normal. LATERAL FEMORAL CUTANEOUS NERVE: Not well seen. IMPRESSION IMPRESSION: Unremarkable ultrasound of the anterior left hip Senior Mechanical Project Manager: NADIA Transcribe Date/Time: May 31 2021 1:54P Dictated by : PAM MUNIZ MD This examination was interpreted and the report reviewed and electronically signed by: GUS SAGE MD on May 31 2021 2:05PM EST [facility] Radiology Study observation (narrative) [facility] US Hip - leftOrdered By: [facility] Provider on 05-31-2021 [facility] Tobacco Screening.on 022 Fall risk assessment a) No falls within the last year LQ-Zhzjtjoo-P [facility] Work Phone: Tobacco use status [facility] b) No YP-Rfbkyrkh-H [facility] [address] Work Phone: CNOVon 02-15-2021 CNOV Office Visit (AGMIL) JOSE ABDUL ([id number]) 1980 F Date Time Provider Department 02/15/21 9:30 AM RICKI HIRSCH During your visit today, we recorded the following information about you: Pulse Respiration Blood pressure Weight 74/minute 18/minute 112/64 103.9 kg Height 1.422 m Ricki Hirsch MD 02/15/2021 10:05 AM Signed Patient seen back today to discuss results of her venous duplex testing. I am pleased to report that the patient currently has no new evidence of superficial or deep thrombophlebitis. In the areas that had been previously concerned about the patient does not appear to have any current thrombophlebitis. With that being the case the patient should return to primary therapy with pumping for her lymphedema as well as lymphedema wraps. She is in her lymphedema wraps when she comes for office visit today. Overall my plan for this patient would be to follow-up with him on an as needed basis. The only thing I might add to her regimen that might help prevent further episodes of superficial thrombophlebitis is a baby aspirin but I would recommend that they check with her primary care physician to be sure that there is no contraindications to this in this patient. If there are contraindications it is not critical that she be on this this is just in an attempt to prevent further episodes of superficial phlebitis. I discussed this with the patient and with her caregiver and at this point in time tell them that we will follow-up with them on an as needed basis. This note was generated with [employer] dictation software. It may contain incorrect words, spelling, and punctuation and that were not noted in review of the chart prior to signing. I spent 15 minutes in the visit, with more than 50% of the total zbpk-ew-aljx time of the visit in counseling / coordination of care. Recommendations: #1 continue lymphedema pumping #2 continue lymphedema wraps #3 check with primary care physician and if no contraindications begin enteric-coated baby aspirin on a daily basis. Referring Provider: SHERIF THAKUR [[id number]] Allergies As of Date: 02/15/2021 Noted Allergy Reaction BEES,WASPS [Other] 10/22/2005 7 - Swelling DILANTIN (PHENYTOIN SODIUM EXTEND*01/28/2006 mosquitoes [Other] 01/28/2006 Date Reviewed: 02/15/2021 Reviewed by: Kirti Bird LPN - Fully Assessed Reason for Visit: Venous Insufficiency [609] Cmt: Jayshree is here to review 02/13/21 venous duplex Primary Visit Diagnosis:Venous insufficiency (chronic) (peripheral) [I87.2] Other Visit Diagnoses:Lymphedema of right lower extremity [I89.0] Lymphedema of left lower extremity [I89.0] BMI 50.0-59.9, adult ([facility]) [Z68.43] Prescriptions as of 02/15/2021 - furosemide (LASIX) 20 mg tablet TAKE ONE TABLET BY MOUTH EVERY OTHER DAY - clotrimazole (LOTRIMIN, CLOTRIM) 1 % cream APPLY TOPICALLY TO AFFECTED AREA(S) ON BILATERAL GROIN TWICE DAILY - ammonium lactate (LAC-HYDRIN) 12 % cream APPLY TOPICALLY TO AFFECTED AREA(S) ON LEGS AT BEDTIME - inommfc-lqajtqqqo-ayw walden D3 (OYSTER SHELL CALCIUM-VITAMIN D) 500 mg(1,250mg) -200 unit per tablet Take 1 tablet by mouth twice daily with meals. - potassium chloride (K-TAB) 10 mEq tablet Take one tablet on days when you are taking lasix. - EPINEPHrine (EPIPEN) 0.3 mg/0.3 mL auto-injector Inject subcutaneously. GIVE DOSE INTO LATERAL THIGH FOR ALLERGIC REACTION, BEES, WASPS MAY REPEAT IN 5-15 MINUTES IF SYMPTOMS PERSIST - albuterol HFA (VENTOLIN HFA) 90 mcg/actuation inhaler Inhale 2 Puffs as instructed every 4 hours as needed for wheezing/shortness of breath. - CERTAVITE-ANTIOXIDANT TAKE ONE TABLET BY MOUTH DAILY - levothyroxine (SYNTHROID) 100 mcg tablet TAKE ONE TABLET BY MOUTH DAILY ONE HOUR BEFORE BREAKFAST - Gauze Bandage 2 X 2 bndg Apply 1 application to affected area twice daily. - Desogestrel-Ethinyl Estradiol (APRI) 0.15-0.03 mg per tablet Take 1 tablet by mouth once daily. - fluticasone (FLONASE) 50 mcg/actuation nasal spray INSTILL 2 SPRAYS IN EACH NOSTRIL DAILY *SHAKE GENTLY BEFORE USING* - Fish Oil-[place]-3 Fatty Acids (FISH OIL) 340-1,000 mg cap Take 1 capsule by mouth once daily. - budesonide-formoterol (SYMBICORT) 160-4.5 mcg/actuation inhaler INHALE 2 PUFFS BY MOUTH TWICE DAILY ( INSTRUCTED ) *SHAKE WELL, RINSE MOUTH AFTER USE* - nystatin (MYCOSTATIN) powder APPLY TOPICALLY TWICE DAILY TO AFFECTED AREA(S) ON ABDOMINAL FOLDS *EXTERNAL USE ONLY* - diphenhydrAMINE (BENADRYL) 25 mg tablet Take 1 tablet by mouth every 6 hours as needed. - cetirizine (ZYRTEC) 10 mg tablet Take 1 tablet by mouth once daily. - naproxen (NAPROSYN) 500 mg tablet Take 1 tablet by mouth twice daily as needed (for pain/inflammation of knee). Take with food. - COMPOUNDED PRESCRIPTION 1 Each once daily. Custom 20-30mmHg knee high compression stockings. Dx: Recu (more content not included)... Normal [facility] CNOVon 01-18-2021 [facility] Office Visit (AGMIL) JOSE ABDUL ([id number]) 1980 F Date Time Provider Department 01/18/21 10:15 AM RICKI HIRSCH During your visit today, we recorded the following information about you: Pulse Respiration Blood pressure Weight 72/minute 18/minute 110/64 103.9 kg Height 1.422 m Ricki Hirsch MD 01/29/2021 2:01 PM Signed This is a patient we see back for a new problem. She had been seen here previously for her lymphedema has been ordered lymphedema pumps and as well uses compression. She states that she uses the lymphedema pumps almost on a daily basis and her lymphedema is still significant. This is most likely because this is lymphedema associated with morbid obesity and unless weight loss occurs the lymphedema is really not going to change dramatically. Her BMI has actually gone up since the last time I saw her. The current request is to evaluate phlebitis that was diagnosed back in August of this year. At this point in time I am really hard pressed to make any recommendations for treatment other than the fact that the patient should probably having a history of superficial phlebitis be placed on a baby aspirin if not medically contraindicated. I make this recommendation and some written notes and asked them to clear up with her primary care physician. Overall she denies any pain or tenderness in the leg and the swelling in the legs is about equal. I think the most beneficial plan of action is to go ahead and repeat the scans and see if we still see the superficial phlebitis being present. If it is 1 might make a consideration of progressing to a more aggressive form of anticoagulation if not medically contraindicated. This is discussed with the patient and her caregiver and the plan will be to go ahead and proceed with bilateral lower extremity venous duplex scans begin on a baby aspirin if not contraindicated by her primary care and see her back in about a month. This note was generated with [employer] dictation software. It may contain incorrect words, spelling, and punctuation and that were not noted in review of the chart prior to signing. I spent 15 minutes in the visit, with more than 50% of the total pdxj-wd-lghf time of the visit in counseling / coordination of care. Referring Provider: SHERIF THAKUR [[id number]] Allergies As of Date: 01/18/2021 Noted Allergy Reaction BEES,WASPS [Other] 10/22/2005 7 - Swelling DILANTIN (PHENYTOIN SODIUM EXTEND*01/28/2006 mosquitoes [Other] 01/28/2006 Date Reviewed: 01/18/2021 Reviewed by: Kirti Bird LPN - Fully Assessed Reason for Visit: Thrombophlebitis [Other] Cmt: Jayshree is new pt rfd by Yazan Yang CNP Primary Visit Diagnosis:Venous insufficiency (chronic) (peripheral) [I87.2] Other Visit Diagnoses:Lymphedema of left lower extremity [I89.0] Lymphedema of right lower extremity [I89.0] BMI 50.0-59.9, adult ([facility]) [Z68.43] Phlebitis and thombophlb of superfic vessels of r low extrem [I80.01] Order(s):US LEG VEIN DVT [facility] [[id number]] Order #: [id number] FUTURE Prescriptions as of 01/29/2021 - clotrimazole (LOTRIMIN, CLOTRIM) 1 % cream APPLY TOPICALLY TO AFFECTED AREA(S) ON BILATERAL GROIN TWICE DAILY - ammonium lactate (LAC-HYDRIN) 12 % cream APPLY TOPICALLY TO AFFECTED AREA(S) ON LEGS AT BEDTIME - iqakuaw-fbanamuui-ndf walden D3 (OYSTER SHELL CALCIUM-VITAMIN D) 500 mg(1,250mg) -200 unit per tablet Take 1 tablet by mouth twice daily with meals. - potassium chloride (K-TAB) 10 mEq tablet Take one tablet on days when you are taking lasix. - EPINEPHrine (EPIPEN) 0.3 mg/0.3 mL auto-injector Inject subcutaneously. GIVE DOSE INTO LATERAL THIGH FOR ALLERGIC REACTION, BEES, WASPS MAY REPEAT IN 5-15 MINUTES IF SYMPTOMS PERSIST - albuterol HFA (VENTOLIN HFA) 90 mcg/actuation inhaler Inhale 2 Puffs as instructed every 4 hours as needed for wheezing/shortness of breath. - CERTAVITE-ANTIOXIDANT TAKE ONE TABLET BY MOUTH DAILY - levothyroxine (SYNTHROID) 100 mcg tablet TAKE ONE TABLET BY MOUTH DAILY ONE HOUR BEFORE BREAKFAST - Gauze Bandage 2 X 2 bndg Apply 1 application to affected area twice daily. - Desogestrel-Ethinyl Estradiol (APRI) 0.15-0.03 mg per tablet Take 1 tablet by mouth once daily. - fluticasone (FLONASE) 50 mcg/actuation nasal spray INSTILL 2 SPRAYS IN EACH NOSTRIL DAILY *SHAKE GENTLY BEFORE USING* - Fish Oil-[place]-3 Fatty Acids (FISH OIL) 340-1,000 mg cap Take 1 capsule by mouth once daily. - budesonide-formoterol (SYMBICORT) 160-4.5 mcg/actuation inhaler INHALE 2 PUFFS BY MOUTH TWICE DAILY ( INSTRUCTED ) *SHAKE WELL, RINSE MOUTH AFTER USE* - nystatin (MYCOSTATIN) powder APPLY TOPICALLY TWICE DAILY TO AFFECTED AREA(S) ON ABDOMINAL FOLDS *EXTERNAL USE ONLY* - furosemide (LASIX) 20 mg tablet Take every other day - diphenhydrAMINE (BENADRYL) 25 mg tablet Take 1 tablet by mout (more content not included)... Normal [facility] Vital Signs Date Time Vital Sign Value Performing Clinician Facility 12-21-2023 17:32-0400 Diastolic Blood Pressure Non-Invasive 83 mm[Hg] TABATHA PAGE DO [facility] 12-21-2023 17:32-0400 Heart rate 66 /min TABATHA PAGE DO [facility] 12-21-2023 17:32-0400 Respiratory rate 16 /min TABATHA PAGE DO [facility] 12-21-2023 17:32-0400 Systolic Blood Pressure Non-Invasive 123 mm[Hg] TABATHA CAMILO DO [facility] 12-21-2023 16:06-0400 Diastolic Blood Pressure Non-Invasive 86 mm[Hg] TABATHA PAGE DO [facility] 12-21-2023 16:06-0400 Heart rate 72 /min TABATHAMARISSA PAGE DO [facility] 12-21-2023 16:06-0400 Mean blood pressure 97 mm[Hg] TABATHA PAGE DO [facility] 12-21-2023 16:06-0400 Respiratory rate 18 /min TABATHA PAGE DO [facility] 12-21-2023 16:06-0400 Systolic Blood Pressure Non-Invasive 116 mm[Hg] TABATHA PAGE DO [facility] 12-21-2023 14:11-0400 Blood Pressure Location TABATHA PAGE DO [facility] 12-21-2023 14:11-0400 Body temperature 97.88 [degF] TABATHA PAGE DO [facility] 12-21-2023 14:11-0400 Diastolic Blood Pressure Non-Invasive 85 mm[Hg] TABATHA PAGE DO [facility] 12-21-2023 14:11-0400 Heart rate 63 /min TABATHA PAGE DO [facility] 12-21-2023 14:11-0400 Respiratory rate 16 /min TABATHA PAGE DO [facility] 12-21-2023 14:11-0400 Systolic Blood Pressure Non-Invasive 130 mm[Hg] TABATHA PAGE DO [facility] 11-18-2023 16:05-0400 Body mass index (BMI) [Ratio] 58.07 kg/m2 Sherif Thakur MD Work Phone: [facility] 11-18-2023 16:05-0400 Body weight 119.6 kg Sherif Thakur MD Work Phone: [facility] 11-18-2023 16:05-0400 Diastolic blood pressure 80 mm[Hg] Sherif Thakur MD Work Phone: [facility] Comment on above: L wrist 11-18-2023 16:05-0400 Heart rate 75 /min Sherif Thakur MD Work Phone: [facility] 11-18-2023 16:05-0400 Respiratory rate 16 /min Sherif Thakur MD Work Phone: [facility] 11-18-2023 16:05-0400 Systolic blood pressure 134 mm[Hg] Sherif Thakur MD Work Phone: [facility] Comment on above: L wrist 11-13-2023 11:09-0400 Body mass index (BMI) [Ratio] 57.05 kg/m2 Elsie Older RFID MANAGER.MANAGING DIRECTOR ATLAS Work Phone: [facility] 11-13-2023 11:09-0400 Body temperature 98.2 [degF] Elsie Older RFID MANAGER.MANAGING DIRECTOR [employer] Work Phone: [facility] 11-13-2023 11:09-0400 Body weight 117.5 kg Elsie Older RFID MANAGER.MANAGING DIRECTOR [employer] Work Phone: [facility] 11-13-2023 11:09-0400 Diastolic blood pressure 84 mm[Hg] Elsie Older RFID MANAGER.MANAGING DIRECTOR [employer] Work Phone: [facility] 11-13-2023 11:09-0400 Heart rate 60 /min Elsie Older RFID MANAGER.MANAGING DIRECTOR [employer] Work Phone: [facility] 11-13-2023 11:09-0400 Respiratory rate 16 /min Elsie Older RFID MANAGER.MANAGING DIRECTOR [employer] Work Phone: [facility] 11-13-2023 11:09-0400 SaO2% (BldA) [Mass fraction] 98 % Elsie Older RFID MANAGER.MANAGING DIRECTOR [employer]LAS Work Phone: [facility] 11-13-2023 11:09-0400 Systolic blood pressure 136 mm[Hg] Elsie Older RFID MANAGER.MANAGING DIRECTOR [employer]LAS Work Phone: [facility] 12-05-2022 10:40-0400 Body height 143 cm Sherif C Ganta Work Phone: NL-Syjgaaio-Srmzt [facility] [address] Work Phone: 12-05-2022 10:40-0400 Body mass index (BMI) [Ratio] 53.24 kg/m2 Sherif C Ganta Work Phone: JU-Qcwpqmlb-Kptbl [facility] [address] Work Phone: 12-05-2022 10:40-0400 Body surface area Derived from formula 1.93 m2 Sherif C Ganta Work Phone: YB-Nrsjktqn-Gyofs [facility] [address] Work Phone: 12-05-2022 10:40-0400 Body temperature 98 [degF] Sherif C Ganta Work Phone: LH-Wmwabymm-Acqen [facility] [address] Work Phone: 12-05-2022 10:40-0400 Body weight 108.86 kg Sherif C Ganta Work Phone: OY-Pqljsmhe-Efnhb [facility] [address] Work Phone: 12-05-2022 10:40-0400 Heart rate 60 /min Sherif C Ganta Work Phone: HX-Goyvgili-Ximrd [facility] [address] Work Phone: 12-05-2022 10:40-0400 Respiratory rate 24 /min Sherif C Ganta Work Phone: WW-Juakgggx-Hsshk [facility] [address] Work Phone: 12-05-2022 10:40-0400 SaO2% (BldA) [Mass fraction] 99 % Sherif Thakur Work Phone: LI-Qpavfrgp-Rluet [facility] [address] Work Phone: 10-23-2022 14:47-0400 Body weight 111.13 kg Elsie Older RFID MANAGER.MANAGING DIRECTOR [employer] Work Phone: [facility] 10-23-2022 14:47-0400 Diastolic blood pressure 78 mm[Hg] Elsie Older RFID MANAGER.MANAGING DIRECTOR [employer] Work Phone: [facility] 10-23-2022 14:47-0400 Heart rate 62 /min Elsie Older RFID MANAGER.MANAGING DIRECTOR [employer] Work Phone: [facility] 10-23-2022 14:47-0400 Respiratory rate 16 /min Elsie Older RFID MANAGER.MANAGING DIRECTOR [employer] Work Phone: [facility] 10-23-2022 14:47-0400 SaO2% (BldA) [Mass fraction] 99 % Elsie Older RFID MANAGER.MANAGING DIRECTOR [employer] Work Phone: [facility] 10-23-2022 14:47-0400 Systolic blood pressure 128 mm[Hg] Elsie Older RFID MANAGER.MANAGING DIRECTOR [employer]LAS Work Phone: [facility] 05-02-2022 10:50-0500 Body height 142.2 cm Sherif Thakur MD Work Phone: [facility] 05-02-2022 10:50-0500 Body weight 111.58 kg Sherif Thakur MD Work Phone: [facility] 05-02-2022 10:50-0500 Diastolic blood pressure 68 mm[Hg] Sherif Thkaur MD Work Phone: [facility] 05-02-2022 10:50-0500 Heart rate 53 /min Sherif Thakur MD Work Phone: [facility] 05-02-2022 10:50-0500 Respiratory rate 16 /min Sherif Thakur MD Work Phone: [facility] 05-02-2022 10:50-0500 SaO2% (BldA) [Mass fraction] 96 % Sherif Thakur MD Work Phone: [facility] 05-02-2022 10:50-0500 Systolic blood pressure 112 mm[Hg] Sherif Thakur MD Work Phone: [facility] 03-21-2022 12:59-0500 Body temperature 98.2 [degF] Elsie Older RFID MANAGER.MANAGING DIRECTOR [employer] Work Phone: [facility] 03-21-2022 12:59-0500 Body weight 112.95 kg Elsie Older RFID MANAGER.MANAGING DIRECTOR [employer] Work Phone: [facility] 03-21-2022 12:59-0500 Diastolic blood pressure 72 mm[Hg] Elsie Older RFID MANAGER.MANAGING DIRECTOR [employer]LAS Work Phone: [facility] 03-21-2022 12:59-0500 Heart rate 60 /min Elsie Older RFID MANAGER.MANAGING DIRECTOR [employer]LAS Work Phone: [facility] 03-21-2022 12:59-0500 Respiratory rate 16 /min Elsie Older RFID MANAGER.MANAGING DIRECTOR [employer]LAS Work Phone: [facility] 03-21-2022 12:59-0500 SaO2% (BldA) [Mass fraction] 99 % Elsie Older RFID MANAGER.MANAGING DIRECTOR [employer]LAS Work Phone: [facility] 03-21-2022 12:59-0500 Systolic blood pressure 118 mm[Hg] Elsie Older RFID MANAGER.MANAGING DIRECTOR [employer] Work Phone: [facility] 01-29-2022 09:48-0500 Body weight 110.68 kg Sherif Thakur MD Work Phone: [facility] 01-29-2022 09:48-0500 Diastolic blood pressure 68 mm[Hg] Sherif Thakur MD Work Phone: [facility] 01-29-2022 09:48-0500 Heart rate 66 /min Sherif Thakur MD Work Phone: [facility] 01-29-2022 09:48-0500 Respiratory rate 16 /min Sherif Thakur MD Work Phone: [facility] 01-29-2022 09:48-0500 SaO2% (BldA) [Mass fraction] 96 % Sherif Thakur MD Work Phone: [facility] 01-29-2022 09:48-0500 Systolic blood pressure 118 mm[Hg] Sherif Thakur MD Work Phone: [facility] 11-29-2021 10:39-0400 Body height 143 cm Sherif Thakur Work Phone: [facility] DO Work Phone: 11-29-2021 10:39-0400 Body mass index (BMI) [Ratio] 52.42 kg/m2 Sherif Thakur Work Phone: [facility] DO Work Phone: 11-29-2021 10:39-0400 Body surface area Derived from formula 1.91 m2 Sherif Thakur Work Phone: [facility] DO Work Phone: 11-29-2021 10:39-0400 Body temperature 97.9 [degF] Sherif Thakur Work Phone: [facility] DO Work Phone: 11-29-2021 10:39-0400 Body weight 107.19 kg Sherif Thakur Work Phone: [facility] DO Work Phone: 11-29-2021 10:39-0400 Diastolic blood pressure 90 mm[Hg] Sherif Thakur Work Phone: [facility] DO Work Phone: 11-29-2021 10:39-0400 Heart rate 60 /min Sherif Thakur Work Phone: [facility] DO Work Phone: 11-29-2021 10:39-0400 Systolic blood pressure 141 mm[Hg] Sherif Thakur Work Phone: [facility] DO Work Phone: 10-29-2021 09:56-0400 Body height 142.2 cm Sherif Thakur MD Work Phone: [facility] 10-29-2021 09:56-0400 Body temperature 99.5 [degF] Sherif Thakur MD Work Phone: [facility] 10-29-2021 09:56-0400 Body weight 109.77 kg Sherif Thakur MD Work Phone: [facility] 10-29-2021 09:56-0400 Diastolic blood pressure 62 mm[Hg] Sherif Thakur MD Work Phone: [facility] 10-29-2021 09:56-0400 Heart rate 56 /min Sherif Thakur MD Work Phone: [facility] 10-29-2021 09:56-0400 Respiratory rate 16 /min Sherif Thakur MD Work Phone: [facility] 10-29-2021 09:56-0400 SaO2% (BldA) [Mass fraction] 95 % Sherif Thakur MD Work Phone: [facility] 10-29-2021 09:56-0400 Systolic blood pressure 118 mm[Hg] Sherif Thakur MD Work Phone: [facility] 08-20-2021 15:53-0400 Body weight 110.22 kg Rae Older RFID MANAGER.MANAGING DIRECTOR ATLAS Work Phone: [facility] 08-20-2021 15:53-0400 Diastolic blood pressure 78 mm[Hg] Rae Older RFID MANAGER.MANAGING DIRECTOR ATLAS Work Phone: [facility] 08-20-2021 15:53-0400 Heart rate 64 /min Rae Older RFID MANAGER.MANAGING DIRECTOR ATLAS Work Phone: [facility] 08-20-2021 15:53-0400 Systolic blood pressure 132 mm[Hg] Rae Older RFID MANAGER.MANAGING DIRECTOR ATLAS Work Phone: [facility] 06-28-2021 09:56-0400 Body temperature 98.6 [degF] Sherif Thakur MD Work Phone: [facility] 06-28-2021 09:56-0400 Body weight 109.77 kg Sherif Thakur MD Work Phone: [facility] 06-28-2021 09:56-0400 Diastolic blood pressure 86 mm[Hg] Sherif Thakur MD Work Phone: [facility] 06-28-2021 09:56-0400 Heart rate 51 /min Sherif Thakur MD Work Phone: [facility] 06-28-2021 09:56-0400 Respiratory rate 18 /min Sherif Thakur MD Work Phone: [facility] 06-28-2021 09:56-0400 SaO2% (BldA) [Mass fraction] 99 % Sherif Thakur MD Work Phone: [facility] 06-28-2021 09:56-0400 Systolic blood pressure 136 mm[Hg] Sherif Thakur MD Work Phone: [facility] 05-03-2021 11:33-0500 Body mass index (BMI) [Ratio] 50.2 kg/m2 Sherif Thakur Work Phone: XY-Yjhdghbx-Qopbx [facility] [address] Work Phone: 05-03-2021 11:33-0500 Body surface area Derived from formula 1.88 m2 Sherif Thakur Work Phone: CN-Uuntrtjo-Hocrr [facility] [address] Work Phone: 05-03-2021 11:33-0500 Body temperature 97.2 [degF] Sherif Thakur Work Phone: KP-Tqhtoyan-Xacqm [facility] [address] Work Phone: 05-03-2021 11:33-0500 Body weight 102.65 kg Sherif Mark Ganta Work Phone: GG-Wlrfcnaj-Kinwf [facility] [address] Work Phone: 05-03-2021 11:33-0500 Diastolic blood pressure 83 mm[Hg] Sherif C Ganta Work Phone: TU-Surxeahf-Pjcbx [facility] [address] Work Phone: 05-03-2021 11:33-0500 Heart rate 83 /min Sherif C Ganta Work Phone: ZC-Pqbkvzyd-Euhmm [facility] [address] Work Phone: 05-03-2021 11:33-0500 Respiratory rate 22 /min Sherif C Ganta Work Phone: II-Ozwrvnji-Wixqf [facility] [address] Work Phone: 05-03-2021 11:33-0500 Systolic blood pressure 136 mm[Hg] Sherif C Ganta Work Phone: KL-Meukzvnl-Hrasd [facility] [address] Work Phone: 11-05-2018 12:32-0400 BMI (Body Mass Index) 52.81 kg/m2 Mima-Luz Beckerillaci TW-Unrxehus-Fcpld [facility] Work Phone: 11-05-2018 12:32-0400 Body weight 108 kg Mima-Luz Schillaci [facility] Work Phone: 11-05-2018 12:32-0400 BP Diastolic 97 mm[Hg] Mima-Luz Schillaci [facility] Work Phone: Comment on above: Location: [facility]; Position: Sitting 11-05-2018 12:32-0400 BP Systolic 139 mm[Hg] Mima-Luz Schillaci [facility] Work Phone: Comment on above: Location: [facility]; Position: Sitting 11-05-2018 12:32-0400 BSA (Body Surface Area) 1.92 m2 Mima-Luz Schillaci LK-Saoinhui-Dskvm il[facility] Work Phone: 11-05-2018 12:32-0400 Height 143 cm Smita Salgado [facility] Work Phone: 11-05-2018 12:32-0400 Pulse (Heart Rate) 62 /min Smita SHEN-Geneti cs-Isidro ilana Work Phone: Encounters Encounter Date Encounter Type Care Provider Facility Start: 12-22-2023 End: 12-22-2023 Telephone encounter Sherif Thakur MD Work Phone: [facility] [place] Comment on above: Medication Question Start: 12-21-2023 End: 12-21-2023 Emergency department patient visit TABATHA PAGE DO [facility] Start: 12-18-2023 End: 12-22-2023 Telephone encounter Sherif Thakur MD Work Phone: [facility] [place] Comment on above: Medication Problem Start: 12-17-2023 End: 12-17-2023 Telephone encounter Sherif Thakur MD Work Phone: [facility] [place] Comment on above: Patient Update Start: 12-12-2023 End: 12-12-2023 Telephone encounter Sherif Thakur MD Work Phone: [facility] [place] Comment on above: weight gain Start: 12-05-2023 End: 12-08-2023 Telephone encounter Sherif Thakur MD Work Phone: [facility] [place] Comment on above: recert patient for s killed nursing service Start: 12-04-2023 End: 12-04-2023 ambulatory [facility] Start: 11-24-2023 End: 11-24-2023 Refill Sherif Thakur MD Work Phone: [facility] [place] Comment on above: Refill Request Start: 11-18-2023 End: 11-18-2023 Office outpatient visit 25 minutes Sherif Thakur MD Work Phone: [facility] [place] Comment on above: Lymphedema (Primary Dx) Start: 11-18-2023 End: 11-18-2023 ambulatory SHERIF THAKUR Facility:[facility] Start: 11-13-2023 End: 11-13-2023 Telephone encounter Elsie Kaplan APRN.MANAGING DIRECTOR ATLAS Work Phone: [facility] [place] Comment on above: Results Start: 11-13-2023 End: 11-13-2023 ambulatory ELSIE KAPLAN Facility:[facility] Start: 11-13-2023 End: 11-13-2023 Patient encounter procedure Elsie Kaplan RFID MANAGER.MANAGING DIRECTOR ATLAS Work Phone: [facility] [place] Comment on above: Cellulitis of left l ower extremity (Primary Dx); Pain of left lower extremity; Edema, unspecified type Start: 11-12-2023 End: 11-13-2023 Telephone encounter Sherif Thakur MD Work Phone: [facility] [place] Comment on above: Patient Update Start: 10-09-2023 Telephone encounter Sherif collier MD Work Phone: [facility] [place] Comment on above: recert orders Patient Update Start: 09-19-2023 Refill Sherif Thakur M D Work Phone: [facility] [place] Comment on above: Refill Request Start: 08-22-2023 Refill Sherif Reddyta M D Work Phone: [facility] [place] Comment on above: Refill Request Start: 08-11-2023 Refill Elsie Kaplan APRN .MANAGING DIRECTOR ATLAS Work Phone: [facility] [place] Comment on above: Refill Request Start: 08-07-2023 Telephone encounter Sherif collier MD Work Phone: [facility] [place] Start: 08-06-2023 Refill Sherif Thakur M D Work Phone: [facility] Comment on above: Refill Request Start: 07-28-2023 Refill Sherif Thakur M D Work Phone: [facility] [place] Comment on above: error Start: 07-21-2023 Refill Sherif Reddyta M D Work Phone: [facility] [place] Comment on above: Refill Request Start: 07-07-2023 Refill Teresa Hanna PRN.MANAGING DIRECTOR ATLAS Work Phone: [facility] [place] Comment on above: Refill Request Start: 06-12-2023 Refill Elsie Older RFID MANAGER .MANAGING DIRECTOR ATLAS Work Phone: Family [facility] [place] Comment on above: Refill Request Start: 05-30-2023 Telephone encounter Elsie Kaplan RFID MANAGER.MANAGING DIRECTOR ATLAS Work Phone: [facility] [place] Comment on above: Orders Start: 05-26-2023 Telephone encounter Sherif collier MD Work Phone: [facility] [place] Comment on above: Insurance Authorizat ion Start: 03-19-2023 End: 03-19-2023 ambulatory [facility] Facility:[facility] Start: 02-28-2023 End: 02-28-2023 ambulatory [facility] Facility:[facility] Start: 02-04-2023 Refill Elsie Older RFID MANAGER .MANAGING DIRECTOR ATLAS Work Phone: [facility] [place] Comment on above: Refill Request Start: 01-20-2023 Refill Sherif Bowling Work Phone: [facility] [place] Comment on above: Refill Request Start: 12-12-2022 Refill Sherif Bowling Work Phone: [facility] [place] Comment on above: Refill Request Start: 12-05-2022 Office outpatient vi sit 40 minutes Sherif Thakur Work Phone: [id number]-Vbaxmpru 1500 Work Phone: Start: 12-05-2022 [id number] Start: 10-23-2022 End: 10-23-2022 Refill Elsie Older RFID MANAGER.MANAGING DIRECTOR ATLAS Work Phone: [facility] [place] Comment on above: Refill Request Lymphedema (Primary Dx); Obstructive sleep apnea syndrome; Acquired hypothyroidism; Mild intermittent asthma without complication Start: 10-10-2022 Telephone encounter Sherif collier MD Work Phone: [facility] [place] Comment on above: Patient Question Start: 10-08-2022 ambulatory Sherif Bowling Work Phone: [facility] [place] Start: 10-08-2022 Telephone encounter Sherif collier MD Work Phone: [facility] [place] Comment on above: Medication Problem Start: 08-26-2022 Refill Sherif Bowling Work Phone: [facility] [place] Comment on above: Refill Request Start: 08-23-2022 Refill Elsie Kaplan RFID MANAGER .MANAGING DIRECTOR ATLAS Work Phone: [facility] [place] Comment on above: Refill Request Start: 08-07-2022 Refill Elsie Kaplan RFID MANAGER .MANAGING DIRECTOR ATLAS Work Phone: [facility] [place] Comment on above: Refill Request Start: 07-18-2022 Refill Sherif Bowling Work Phone: [address] [place] [address] Comment on above: Refill Request Start: 06-06-2022 Telephone encounter Sherif collier MD Work Phone: [facility] [place] Comment on above: Orders (Medication A dministration Consent ) Start: 06-04-2022 Refill Elsie Kaplan RFID MANAGER .MANAGING DIRECTOR ATLAS Work Phone: [facility] [place] Comment on above: Refill Request Start: 05-15-2022 Refill Elsie Kaplan RFID MANAGER .MANAGING DIRECTOR ATLAS Work Phone: [facility] [place] Comment on above: Refill Request Start: 05-02-2022 End: 05-02-2022 Patient encounter procedure Sherif Thakur MD Work Phone: [facility] [place] Comment on above: Annual physical exam (Primary Dx); Hypothalamic hypogonadism (HCC); Prader-Willi syndrome; Obstructive sleep apnea syndrome; Mild intermittent asthma without complication; Acquired hypothyroidism; Lymphedema of left lower extremity Start: 03-21-2022 End: 03-21-2022 Patient encounter procedure Elsie Kaplan APRN.MANAGING DIRECTOR ATLAS Work Phone: [facility] [place] Comment on above: Bilateral chronic kn ee pain (Primary Dx); Acute cough Start: 02-05-2022 Refill Elsie Older RFID MANAGER .MANAGING DIRECTOR ATLAS Work Phone: [facility] [place] Comment on above: Refill Request Start: 01-29-2022 End: 01-29-2022 Patient encounter procedure Sherif Thakur MD Work Phone: [facility] [place] Comment on above: Obstructive sleep ap shelby syndrome (Primary Dx); Encounter for immunization; Mild intermittent asthma without complication; Acquired hypothyroidism; Lymphedema of right lower extremity; Lymphedema of left lower extremity; Sleep deprivation Start: 01-07-2022 Telephone encounter Sherif collier MD Work Phone: [facility] [place] Comment on above: Orders; handicap cristina card rx Start: 12-13-2021 Telephone encounter Sherif collier MD Work Phone: [facility] [place] Comment on above: Patient Question Start: 11-29-2021 Telephone encounter Sherif collier MD Work Phone: [facility] [place] Comment on above: Orders Start: 11-29-2021 Patient encounter procedure Sherif Thakur Work Phone: [facility] [address] DO Work Phone: Start: 10-29-2021 End: 10-29-2021 Patient encounter procedure Sherif Thakur MD Work Phone: [facility] [place] Comment on above: Prader-Willi syndrom e (Primary Dx); Skin ulcer, limited to breakdown of skin (HCC); Pedal edema; Mild persistent asthma without complication; Obstructive sleep apnea syndrome Start: 09-20-2021 Refill Sherif Bowling Work Phone: [facility] [place] Comment on above: Refill Request Start: 09-04-2021 Refill Yazan Hanna PRN.CNP Work Phone: [facility] [place] Comment on above: Refill Request Start: 08-29-2021 Telephone encounter Sherif collier MD Work Phone: [facility] [place] Comment on above: Home health update Start: 08-20-2021 End: 08-20-2021 Patient encounter procedure Rae Kaplan APRN.MANAGING DIRECTOR ATLAS Work Phone: [facility] [place] Comment on above: Skin ulcer of left t high, limited to breakdown of skin (HCC) (Primary Dx) Start: 08-14-2021 Refill Yazan Hanna PRN.CNP Work Phone: [facility] [place] Comment on above: Refill Request Start: 07-06-2021 Telephone encounter Sherif collier MD Work Phone: [facility] [place] Comment on above: Order request Start: 06-28-2021 Telephone encounter Sherif collier MD Work Phone: [facility] [place] Comment on above: PT Order Question Start: 06-28-2021 End: 06-28-2021 Patient encounter procedure Sherif Thakur MD Work Phone: [facility] [place] Comment on above: Prader-Willi syndrom e (Primary Dx); SOB (shortness of breath); Physical therapy evaluation, initial Start: 06-28-2021 End: 06-28-2021 Patient encounter status Sherif Thakur MD Work Phone: [facility] [place] Start: 06-22-2021 Telephone encounter Sherif collier MD Work Phone: [facility] [place] Comment on above: [facility] work (verbal order needed) Start: 06-13-2021 Telephone encounter Sherif collier MD Work Phone: [facility] [place] Comment on above: Forms Start: 06-06-2021 Telephone encounter Sherif collier MD Work Phone: [facility] [place] Comment on above: Results Start: 05-31-2021 End: 05-31-2021 Subsequent hospital visit by physician [facility] [address] Radiology Comment on above: Left groin pain [R10 .32] Start: 05-03-2021 Nutrition therapy Sherif collier Work Phone: WP-Feeellle-Neahiign 1500 Work Phone: Start: 05-03-2021 Patient encounter procedure Sherif Thakur Work Phone: [id number]-Qanxflsa 1500 Work Phone: Start: 12-02-2019 Patient encounter procedure [facility] Work Phone: Start: 08-05-2019 Patient encounter procedure [facility] Work Phone: Start: 05-06-2019 Patient encounter procedure [facility] Work Phone: Start: 11-05-2018 Patient encounter procedure Mima-Luz Salgado GY-Jidyscdm-Xygdkrka Work Phone: Start: 05-07-2018 Patient encounter procedure Mima-Luz Salgado KD-Laxaswmt-Vaclloxl Work Phone: Start: 09-04-2017 Patient encounter procedure Mima-Luz Salgado ZT-Eakirgyp-Skkzszmh Work Phone: Start: 01-01-2017 End: 01-01-2017 Ambulatory IM[facility] Facility:[facility] Start: 12-31-2016 Patient encounter procedure Mima-Luz Salgado HJ-Kezwqzvh-Shbzjsng Work Phone: Start: 12-13-2016 Patient encounter procedure Mima-Luz Salgado FV-Fpxxnjld-Fuebwqwd Work Phone: Start: 12-10-2016 Patient encounter procedure Mima-Luz Salgado SE-Hujqioem-Jfevstci Work Phone: Start: 12-05-2016 Patient encounter procedure Smita Salgado VT-Xrvdekep-Ydydltzv Work Phone: Procedures Date Procedure Procedure Detail Performing Clinician Start: 12-05-2022 Medical nutrition re-assmt&ivntj indiv ea 15 m Sherif Thakur Work Phone: Start: 01-29-2022 PFIZER-BIONTECH COVI D-19 BIVALENT BOOSTER VACCINE, AGE 12+ YR Sherif Thakur MD Work Phone: Start: 10-29-2021 Adult depression scr eening assessment Sherif Thakur MD Work Phone: Start: 05-31-2021 Us compl joint r-t w /image documentation Sherif Thakur MD Work Phone: Start: 12-11-2019 Echocardiography Lexus Jackson Start: 12-06-2019 25 hydroxy includes fractions if performed Lexus Moralezronkvng Start: 12-06-2019 EKG study Lexus martinezjose Start: 12-06-2019 Hemoglobin glycosylated a1c Lexus Jackson Start: 12-06-2019 Hepatic function panel Lexus Moralezronkvng Start: 12-06-2019 Lipid panel Lexus martinezjose Start: 12-06-2019 Renal function panel La chelsi Moralezronkvng Start: 12-06-2019 TSH WITH REFLEX TO F REE T4 IF ABNORMAL Lexus Moralezosiris Start: 12-06-2019 Urnls dip stick/tabl et rgnt auto w/o microscopy Lexus Moralezronkvng Start: 05-25-2018 Adult depression scr eening assessment Sherif Thakur MD Work Phone: History of No histor y of surgery Lexus Manuel No history of surgery Sherif Thakur Work Phone: Plan of Treatment Date Care Activity Detail Author Start: 05-22-2026 HPV TESTING HPV TESTING [facility] Start: 05-22-2026 PAP TESTING PAP TESTING [facility] Start: 05-22-2026 Screening for malign ant neoplasm of cervix [facility] Start: 01-09-2025 Urine microalbumin profile [facility] Start: 11-17-2024 Annual PCP Team Marketing Information Coordinator salvatore Disease Visit Annual PCP Team Chronic Disease Visit [facility] Start: 11-12-2024 Annual PCP Team Marketing Information Coordinator salvatore Disease Visit Annual PCP Team Chronic Disease Visit [facility] Start: 07-03-2024 Screening for malign ant neoplasm of breast Mammogram Screening [facility] Start: 03-22-2024 End: 03-22-2024 Patient encounter procedure 03/22/2024 1:00 PM EST Office Visit [facility] [place] [address] [place], [place] [id number] Elsie Kaplan APRN.MANAGING DIRECTOR ATLAS [address] [facility] [place] [id number] physical [facility] [place] Comment on above: physical Start: 03-19-2024 Annual PCP Team Marketing Information Coordinator salvatore Disease Visit Annual PCP Team Chronic Disease Visit [facility] Start: 02-20-2024 End: 02-20-2024 Patient encounter procedure 02/20/2024 9:00 AM EST Office Visit [facility] [place] [address] [place] [address] Sherif Thakur MD [address] [place] [address] 3 mo follow up; BL lymphedema [facility] [place] Comment on above: 3 mo follow up; BL l ymphedema Start: 01-01-2024 End: 01-01-2024 Patient encounter procedure 01/01/2024 3:20 PM EDT Office Visit [facility] [place] [address] [place] [address] Sherif Thakur MD [address] [place] [address] [facility] f/u 12-21-23. s/o SOB [facility] [place] Comment on above: [facility] f/u 12-08. s/o SOB Start: 11-18-2023 End: 11-18-2023 Patient encounter procedure 11/18/2023 3:40 PM EDT Office Visit [facility] [place] [address] [place] [address] Sherif Thakur MD [address] [place] [address] compression hose, needs to be set up with a compression class [facility] [place] Comment on above: compression hose, ne eds to be set up with a compression class Start: 11-09-2023 Covid-19 Vaccine ( season) Covid-19 Vaccine () [facility] Start: 11-09-2023 Covid-19 Vaccine ( season) Covid-19 Vaccine () [facility] Start: 11-09-2023 Influenza vaccination [facility] Start: 10-24-2023 ANNUAL PCP TEAM BARGE LOADER SALVATORE DISEASE VISIT ANNUAL PCP TEAM CHRONIC DISEASE VISIT [facility] Start: 07-02-2023 ANNUAL PCP TEAM BARGE LOADER SALVATORE DISEASE VISIT ANNUAL PCP TEAM CHRONIC DISEASE VISIT [facility] Start: 05-02-2023 ANNUAL PCP TEAM BARGE LOADER SALVATORE DISEASE VISIT ANNUAL PCP TEAM CHRONIC DISEASE VISIT [facility] Start: 03-21-2023 ANNUAL PCP TEAM BARGE LOADER SALVATORE DISEASE VISIT ANNUAL PCP TEAM CHRONIC DISEASE VISIT [facility] Start: 03-10-2023 Behavioral Health Screening Behavioral Health Screening [facility] Start: 03-10-2023 Depression Assessment Depression Ass essment [facility] Start: 01-29-2023 ANNUAL PCP TEAM BARGE LOADER SALVATORE DISEASE VISIT ANNUAL PCP TEAM CHRONIC DISEASE VISIT [facility] Start: 12-05-2022 PRAISAURO, Provider : Marisol Mohamud, Status: Pen, Time: 10:30 AM JOSLYN, Provider: Marisol Mohamud, Status: Pen, Time: 10:30 AM [facility] 1100 DO Work Phone: Start: 11-08-2022 Covid-19 Vaccine ( season) Covid-19 Vaccine ( season) [facility] Start: 11-08-2022 Influenza vaccination [facility] Start: 10-29-2022 Adult depression screening assessment DEPRESSION SCREENING [facility] Start: 10-29-2022 ANNUAL PCP TEAM BARGE LOADER SALVATORE DISEASE VISIT ANNUAL PCP TEAM CHRONIC DISEASE VISIT [facility] Start: 10-08-2022 End: 12-08-2022 Basic metabolic 2000 panel - Serum or Plasma BASIC METABOLIC PNL Lab Routine Medication management Expected: 10/08/2022, Expires: 12/08/2022 [facility] Work Phone: Comment on above: Expected: 10/08/2022 , Expires: 12/08/2022 Start: 10-08-2022 End: 12-08-2022 Thyrotropin [Units/volume] in Serum or Plasma TSH BLD Lab Routine Acquired hypothyroidism Expected: 10/08/2022, Expires: 12/08/2022 [facility] Work Phone: Comment on above: Expected: 10/08/2022 , Expires: 12/08/2022 Start: 08-20-2022 ANNUAL PCP TEAM BARGE LOADER SALVATORE DISEASE VISIT ANNUAL PCP TEAM CHRONIC DISEASE VISIT [facility] Start: 2022 Mammography [facility] Start: 2022 Screening for malign ant neoplasm of breast Mammogram Screening [facility] Start: 06-28-2022 ANNUAL PCP TEAM BARGE LOADER SALVATORE DISEASE VISIT ANNUAL PCP TEAM CHRONIC DISEASE VISIT [facility] Start: 04-23-2022 ANNUAL PCP TEAM BARGE LOADER SALVATORE DISEASE VISIT ANNUAL PCP TEAM CHRONIC DISEASE VISIT [facility] Start: 03-10-2022 DEPRESSION ASSESSMENT DEPRESSION ASS ESSMENT [facility] Start: 11-29-2021 End: 01-29-2022 25-hydroxyvitamin D3 [Mass/volume] in Serum or Plasma VITAMIN D 25 HYDROXY Lab Routine Vitamin D deficiency Expected: 11/29/2021, Expires: 01/29/2022 [facility] Work Phone: Comment on above: Expected: 11/29/2021 , Expires: 01/29/2022 Start: 11-29-2021 End: 01-29-2022 CBC W Auto Differential panel - Blood CBC + DIFF Lab Routine Prader-Willi syndrome Expected: 11/29/2021, Expires: 01/29/2022 [facility] Work Phone: Comment on above: Expected: 11/29/2021 , Expires: 01/29/2022 Start: 11-29-2021 End: 01-29-2022 Comprehensive metabolic 2000 panel - Serum or Plasma COMP METABOLIC PANEL Lab Routine Encounter for screening for diabetes mellitus Expected: 11/29/2021, Expires: 01/29/2022 [facility] Work Phone: Comment on above: Expected: 11/29/2021 , Expires: 01/29/2022 Start: 11-29-2021 End: 01-29-2022 Hemoglobin A1c in Blood HGB A1C Lab Routine Elevated blood sugar Expected: 11/29/2021, Expires: 01/29/2022 [facility] Work Phone: Comment on above: Expected: 11/29/2021 , Expires: 01/29/2022 Start: 11-29-2021 End: 01-29-2022 Lipid 1996 panel - Serum or Plasma LIPID PANEL BASIC Lab Routine Lipid screening Expected: 11/29/2021, Expires: 01/29/2022 [facility] Work Phone: Comment on above: Expected: 11/29/2021 , Expires: 01/29/2022 Start: 11-29-2021 End: 01-29-2022 Thyrotropin [Units/volume] in Serum or Plasma TSH BLD Lab Routine Hypothyroidism, unspecified type Expected: 11/29/2021, Expires: 01/29/2022 [facility] Work Phone: Comment on above: Expected: 11/29/2021 , Expires: 01/29/2022 Start: 11-08-[address] [facility] Start: 10-31-2021 FUV, Provider: Marisol Mohamud, Status: Pen, Time: 11:30 AM FUV, Provider: Marisol Mohamud, Status: Pen, Time: 11:30 AM RY-Vwzajljd-Ejgde ilana 1500 Work Phone: Start: 03-10-2021 DEPRESSION ASSESSMENT DEPRESSION ASS ESSMENT [facility] Start: 12-13-2020 COVID-19 VACCINE (3 - Booster for Moderna series) COVID-19 VACCINE (3 - Booster for Moderna series) [facility] Start: 11-08-2020 Influenza vaccination INFLUENZA (#1) [facility] Start: 09-07-2020 COVID-19 VACCINE (3 - Booster for Moderna series) COVID-19 VACCINE (3 - Booster for Moderna series) [facility] Start: 12-06-2019 25 hydroxy includes fractions if performed Vitamin D 25-Hydroxy [facility] [employer] Work Phone: Start: 12-06-[address] [facility] [employer] Work Phone: Start: 12-06-2019 EKG study Electrocardiogram EKG [facility] [employer] Work Phone: Start: 12-06-2019 HbA1c (Bld) [Mass fraction] Hemoglobin A1C [facility] [employer] Work Phone: Start: 12-06-2019 Hepatic function panel Hepatic Funct ion Panel [facility] [employer] Work Phone: Start: 12-06-2019 Lipid panel Lipid Panel [facility] Work Phone: Start: 12-06-2019 Urea, electrolytes a nd creatinine measurement Renal Function Panel [facility] Work Phone: Start: 12-06-2019 Urnls dip stick/tabl et rgnt auto w/o microscopy Urinalysis [facility] Work Phone: Start: 05-26-2019 Adult depression screening assessment DEPRESSION SCREENING [facility] Start: 04-11-2007 PNEUMOCOCCAL (2 - PCV) PNEUMOCOCCAL (2 - PCV) [facility] Start: 04-11-2007 Pneumococcal vaccination Pneum ococcal Vaccine (2 - PCV) [facility] Start: 2001 Hepatitis B Vaccine (1 of 3 - 19+ 3-dose series) Hepatitis B Vaccine (1 of 3 - 19+ 3-dose series) [facility] Start: 2000 Anxiety Screening Anxiety Screening [facility] Start: 2000 Depression Screening Depression Scre ening [facility] Start: 2000 SPIROMETRY SPIROMETRY [facility] Start: 1982 HEPATITIS B (1 of 3 - 3-dose series) HEPATITIS B (1 of 3 - 3-dose series) [facility] Start: 1982 Hepatitis B Vaccine (1 of 3 - 3-dose series) Hepatitis B Vaccine (1 of 3 - 3-dose series) [facility] End: 06-28-2022 Echocardiography ECHO Cardiology Routine Prader-Willi syndrome SOB (shortness of breath) 1 Occurrences starting 06/28/2021 until 06/28/2022 [facility] Work Phone: Comment on above: 1 Occurrences starti ng 06/28/2021 until 06/28/2022 [facility] NEGATED: Highlighted row has been ruled out! Planned Goals not documented [facility] Work Phone: Immunizations Immunization Date Immunization Notes Care Provider Shani aleman 01-29-2022 COVID-19 booster vaccine, age 12+ yr, bivalent (PFIZER-BIONTOppten) Sherif Thkaur MD Work Phone: [facility] 07-13-2020 COVID-19 vaccine, fu ll dose (MODERNA) Sherif Thakur MD Work Phone: [facility] Work Phone: 06-15-2020 COVID-19 vaccine, fu ll dose (MODERNA) Sherif Thakur MD Work Phone: [facility] Work Phone: 12-22-2019 influenza, injectabl e, quadrivalent, contains preservative Sherif Thakur MD Work Phone: [facility] Work Phone: 12-22-2019 influenza virus vaccine, unspecified formulation Sherif Thakur MD Work Phone: [facility] 01-19-2019 influenza, injectabl e, quadrivalent, contains preservative Sherif Thakur MD Work Phone: [facility] 11-26-2017 influenza, injectabl e, quadrivalent, preservative free Sherif Thakur MD Work Phone: [facility] Work Phone: 01-27-2017 influenza, injectabl e, quadrivalent, contains preservative Sherif Thaukr MD Work Phone: [facility] Work Phone: 12-13-2015 influenza, injectabl e, quadrivalent, contains preservative Sherif Thakur MD Work Phone: [facility] [facility] 01[facility]2015 tetanus toxoid, redu abdelrahman diphtheria toxoid, and acellular pertussis vaccine, adsorbed Sherif Thakur MD Work Phone: [facility] Work Phone: 12-14-2014 influenza, injectabl e, quadrivalent, contains preservative Sherif Thakur MD Work Phone: [facility] 12-13-2013 influenza, seasonal, injectable Sherif Thakur MD Work Phone: [facility] 01-01-2013 influenza virus vaccine, unspecified formulation Sherif Thakur MD Work Phone: [facility] Work Phone: 12-13-2010 influenza virus vaccine, unspecified formulation Sherif Thakur MD Work Phone: [facility] 05-25-2010 tuberculin skin test ; purified protein derivative solution, intradermal Sherif Thakur MD Work Phone: [facility] 01-30-2010 influenza virus vaccine, unspecified formulation Sherif Thakur MD Work Phone: [facility] Work Phone: 05-29-2009 tuberculin skin test ; purified protein derivative solution, intradermal Sherif Thakur MD Work Phone: [facility] Work Phone: 12-27-2008 influenza virus vaccine, unspecified formulation Sherif Thakur MD Work Phone: [facility] 02-03-2008 influenza virus vaccine, unspecified formulation Sherif Thakur MD Work Phone: [facility] 01-06-2007 influenza virus vaccine, unspecified formulation Sherif Thakur MD Work Phone: [facility] Work Phone: 04-11-2006 pneumococcal polysaccharide vaccine, 23 valent Sherif Thakur MD Work Phone: [facility] Work Phone: 01-28-2006 influenza virus vaccine, unspecified formulation Sheirf Thakur MD Work Phone: [facility] 11-14-2003 tetanus and diphther ia toxoids, adsorbed, preservative free, for adult use (2 Lf of tetanus toxoid and 2 Lf of diphtheria toxoid) Sherif Thakur MD Work Phone: [facility] Work Phone: NEGATED: Highlighted row has not occurred!12-20-2020 influenza, injectable, quadrivalent, contains preservative Sherif Thakur MD Work Phone: [facility] Work Phone: Payers Date Payer Category Payer Medicaid MEDICAID [facility] MEDICAID [id number] 2015-Present [phone] [address] [place] [address] Medicaid [id number] 2015 Medicaid MEDICAID [facility] MEDICAID [id number] 2015-Present [phone] [address] [place] [address] Medicaid [id number] 2007 Medicare MEDICARE MEDICAR E A AND B [id number] 2007-Present [phone] [place] [address] Medicare [id number] 2007 Medicare MEDICARE MEDICAR E A AND B [id number] 2007-Present [phone] [place] [address] Medicare [id number] 2007 Medicare [id number] 2006 Medicaid [id number] 1982 Unknown [id number] 1982 Unknown [id number] 1982 Unknown [id number] 1982 Unknown [id number] 1982 Unknown [id number] Medicare [id number] Unknown Social History Date Type Detail Facility Assertion Unknown if ever smoked [facility] Work Phone: Start: 07-01-2022 End: 10-23-2022 Lives in retirement Lives in retirement [facility] Work Phone: Start: 11-21-2010 Tobacco smoking stat us FLIS Never smoked tobacco [facility] Start: 04-23-2021 End: 11-18-2023 Alcohol intake Current non-drinker of alcohol (finding) [facility] Start: 1980 Sex Assigned At Not on file [facility] Start: 05-21-2021 End: 10-29-2021 Exposure to SARS-CoV-2 (event) Not sure [facility] Start: 11-21-2010 Tobacco use and exposure Smokeless tobacco non-user [facility] Work Phone: Start: 07-01-2022 End: 10-23-2022 Tobacco use panel [facility] Work Phone: Adult Depression Screening Assessment 0 [facility] Work Phone: Functional Status Date Assessment Result Facility 12-21-2023 Functional Status Ambulation in [facility] 12-21-2023 Functional Status Standard Safet y ID band on, Visitor at bedside [facility] NEGATED: Highlighted row Functional performance Functional status health issues are not documented Disease [facility] Work Phone: Mental Status Date Assessment Result Facility 12-21-2023 Mental Status Orientation Orie nted x 4 [facility] 12-21-2023 Mental Status [facility] NEGATED: Highlighted row Cognitive function [Interpretation] Cognitive status health issues are not documented Disease [facility] Work Phone: Clinical Notes 01-16-2016 to 12-22-2023 Telephone Encounter - María Avila MA - 12/22/2023 1:49 PM EDTTelephone Encounter - María Avila MA - 12/22/2023 1:49 PM EDTTelephone Encounter - Elsie Kaplan APRN.CNP - 12/22/2023 1:41 PM EDT Note Date & Type Note Facility 12-22-2023 Telephone encounter Note Pharmacist notified. [facility] 12-22-2023 Miscellaneous Notes Pharmacist notified. She is supposed to be taking both short term. Is there a way to get her in earlier then in 10 days? Thank you Elsie Kaplan APRN.CNP Pharmacist @ [facility] calling to clarify orders for Furosemide and Potassium. She states patient has scripts for both Furosemide 40 mg daily and 20 mg every other day. She also has scripts for Potassium Chloride 20 mEq daily and 10 mEq daily. Pharmacist asking if patient is to be taking both? Patient scheduled for ER follow up on 01/01/24 with PCP. Please review and advise. Annie Brand, RN documented in this encounter [facility] 12-22-2023 Telephone encounter Note She is supposed to be taking both short term. Is there a way to get her in earlier then in 10 days? Thank you Elsie Kaplan APRN.CNP [facility] 12-22-2023 Telephone encounter Note Pharmacist @ [facility] calling to clarify orders for Furosemide and Potassium. She states patient has scripts for both Furosemide 40 mg daily and 20 mg every other day. She also has scripts for Potassium Chloride 20 mEq daily and 10 mEq daily. Pharmacist asking if patient is to be taking both? Patient scheduled for ER follow up on 01/01/24 with PCP. Please review and advise. Annie Brand, RN [facility] 12-22-2023 Telephone encounter Note Call returned by Shobha message given as provided. She voices understanding. [facility] 12-22-2023 Miscellaneous Notes Call returned by Shobha message given as provided. She voices understanding. Called and left a voicemail for the [facility] to call back and ask for a nurse to receive the providers message. Teresa Ferrera RN Prescription Resent. Thank you Elsie Kaplan APRN.MANAGING DIRECTOR ATLAS [facility]- phoned to report patient was seen in [place] [facility] on Friday12-21-23, with SOB. ER gave patient IV lasix and sent patient home. Reports patient is having stress in retirement with another housemate, which is causing patient anxiety, and this was part of the problem, but patient has also been having problems with edema. This nurse phoned [facility]- caregiver @ [facility] to schedule ER f/u appt, and noted in 12-17-23 encounter, [employer] Analyst had ordered potassium 20 mg daily, and lasix 40 mg daily, until patient is seen. Asked Shobha how patient is doing on this dose. Shobha reports patient never received the medication, b/c it was sent to the wrong pharmacy, should have been sent to [facility]. Shobha did call pcp to report this (see message below), but never received the medication. Reports even if the medication is sent to [facility] today- they still will not receive it until Fri. Pended medications for [facility]. Please send geovanny. Shobha reports patient is doing fine today- and they are working on the problem with the housemate. Scheduled patient hosp f/u appt for 01-01-24. Shobha from [facility] states there were medications sent for pt yesterday documented in this encounter [facility] 12-22-2023 Telephone encounter Note Called and left a voicemail for the [facility] to call back and ask for a nurse to receive the providers message. Teresa Ferrera RN [facility] 12-22-2023 Telephone encounter Note Prescription Resent. Thank you Elsie Kaplan APRN.MANAGING DIRECTOR ATLAS [facility] 12-22-2023 Telephone encounter Note [facility]- phoned to report patient was seen in [place] ER on Friday12-21-23, with SOB. ER gave patient IV lasix and sent patient home. Reports patient is having stress in retirement with another housemate, which is causing patient anxiety, and this was part of the problem, but patient has also been having problems with edema. This nurse phoned Shobha- caregiver @ [facility] to schedule ER f/u appt, and noted in 12-17-23 encounter, [employer] Analyst had ordered potassium 20 mg daily, and lasix 40 mg daily, until patient is seen. Asked Shobha how patient is doing on this dose. Shobha reports patient never received the medication, b/c it was sent to the wrong pharmacy, should have been sent to [facility]. Shobha did call pcp to report this (see message below), but never received the medication. Reports even if the medication is sent to [facility] today- they still will not receive it until Fri. Pended medications for [facility]. Please send geovannynalini Yeager reports patient is doing fine today- and they are working on the problem with the housemate. Scheduled patient hosp f/u appt for 01-01-24. [facility] 12-21-2023 Hospital Discharge instructions Patient Education 12/21/2023 18:10:56 Shortness of Breath (Dyspnea) Shortness of Breath (Dyspnea) Shortness of breath is the feeling that you can't catch your breath or get enough air. It is also known as dyspnea. Dyspnea can be caused by many different conditions. They include: Acute asthma attack Worsening of chronic lung diseases such as chronic bronchitis and emphysema Heart failure. This is when weak heart muscle allows extra fluid to collect in the lungs. Panic attacks or anxiety. Fear can cause rapid breathing (hyperventilation). Pneumonia, or an infection in the lung tissue Exposure to toxic substances, fumes, smoke, or certain medicines Blood clot in the lung (pulmonary embolism). This is often from a piece of blood clot in a deep vein of the leg (deep vein thrombosis) that breaks off and travels to the lungs. Heart attack or heart-related chest pain (angina) Anemia Collapsed lung (pneumothorax) Dehydration Based on your visit today, the exact cause of your shortness of breath is not certain. Your tests don t show any of the serious causes of dyspnea. You may need other tests to find out if you have a serious problem. It s important to watch for any new symptoms or symptoms that get worse. Follow up with your healthcare provider as directed. Home care Follow these tips to take care of yourself at home: When your symptoms are better, go back to your usual activities. If you smoke, you should stop. Join a quit-smoking program or ask your healthcare provider for help. Eat a healthy diet and get plenty of sleep. Get regular exercise. Talk with your healthcare provider before starting to exercise, especially if you have other medical problems. Cut down on the amount of caffeine and stimulants you consume. Follow-up care Follow up with your healthcare provider, or as advised. If tests were done, you will be told if your treatment needs to be changed. You can call as directed for the results. If an X-ray was taken, a specialist will review it. You will be notified of any new findings that may affect your care. Call 911 Shortness of breath may be a sign of a serious medical problem. For example, it may be a problem with your heart or lungs. Call 911 if you have worsening shortness of breath or trouble breathing, especially with any of the symptoms below: Confusion or difficulty waking Fainting or loss of consciousness. Fast or irregular heartbeat Coughing up blood Pain in your chest, arm, shoulder, neck, or upper back Sweating When to seek medical advice Call your healthcare provider right away if any of these occur: Slight shortness of breath or wheezing Redness, pain or swelling in your leg, arm, or other body area Swelling in both legs or ankles Fast weight gain Dizziness or weakness Fever of 100.4 F (38 C) or higher, or as directed by your healthcare provider [id number] [employer]. [address] [place] [address]. All rights reserved. This information is not intended as a substitute for professional medical care. Always follow your healthcare professional's instructions. 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 The following is important discharge information regarding your hospital visit. Diagnosis from Today's Visit Dyspnea What to Do Next Instructions from Your Care Team Please increase dosing of Lasix tomorrow as he had already planned with your physician. Please return to the emergency department should you experience any worsening shortness of breath symptoms or any development of chest pain or other acute concerns. Otherwise follow-up with your atmospheric physics professor as scheduled. No qualifying data available. Post Acute Orders No qualifying data available. You Need to Schedule the Following Appointments Follow Up with please follow up with your atmospheric physics professor When:Within 2-4 days Follow Up with Go to emergency room if symptoms worsen When:Within 2-4 days Follow Up with SHERIF THAKUR MD When:Within 2-4 days Where:[address] [facility] [place] [address]- Allergies Bee Stings Dilantin misc non-codified allergy Medications Please ask your primary doctor or pharmacist before taking any other medication not listed, including over the counter drugs, herbal medications, vitamins and or supplements as they may interact with your home medications. Please take this list to your next doctor s visit. Bring all medications you take, including over the counter medications, herbals and other supplements with you to your doctor s visit. Patients and families are reminded to discard old lists and to update any records with all medication providers or retail pharmacies. Education Materials Shortness of Breath (Dyspnea) Shortness of breath is the feeling that you can't catch your breath or get enough air. It is also known as dyspnea. Dyspnea can be caused by many different conditions. They include: Acute asthma attack Worsening of chronic lung diseases such as chronic bronchitis and emphysema Heart failure. This is when weak heart muscle allows extra fluid to collect in the lungs. Panic attacks or anxiety. Fear can cause rapid breathing (hyperventilation). Pneumonia, or an infection in the lung tissue Exposure to toxic substances, fumes, smoke, or certain medicines Blood clot in the lung (pulmonary embolism). This is often from a piece of blood clot in a deep vein of the leg (deep vein thrombosis) that breaks off and travels to the lungs. Heart attack or heart-related chest pain (angina) Anemia Collapsed lung (pneumothorax) Dehydration Based on your visit today, the exact cause of your shortness of breath is not certain. Your tests don t show any of the serious causes of dyspnea. You may need other tests to find out if you have a serious problem. It s important to watch for any new symptoms or symptoms that get worse. Follow up with your healthcare provider as directed. Home care Follow these tips to take care of yourself at home: When your symptoms are better, go back to your usual activities. If you smoke, you should stop. Join a quit-smoking program or ask your healthcare provider for help. Eat a healthy diet and get plenty of sleep. Get regular exercise. Talk with your healthcare provider before starting to exercise, especially if you have other medical problems. Cut down on the amount of caffeine and stimulants you consume. Follow-up care Follow up with your healthcare provider, or as advised. If tests were done, you will be told if your treatment needs to be changed. You can call as directed for the results. If an X-ray was taken, a specialist will review it. You will be notified of any new findings that may affect your care. Call 911 Shortness of breath may be a sign of a serious medical problem. For example, it may be a problem with your heart or lungs. Call 911 if you have worsening shortness of breath or trouble breathing, especially with any of the symptoms below: Confusion or difficulty waking Fainting or loss of consciousness. Fast or irregular heartbeat Coughing up blood Pain in your chest, arm, shoulder, neck, or upper back Sweating When to seek medical advice Call your healthcare provider right away if any of these occur: Slight shortness of breath or wheezing Redness, pain or swelling in your leg, arm, or other body area Swelling in both legs or ankles Fast weight gain Dizziness or weakness Fever of 100.4 F (38 C) or higher, or as directed by your healthcare provider [id number] [employer]. [address] [place] [address]. All rights reserved. This information is not intended as a substitute for professional medical care. Always follow your healthcare professional's instructions. Additional Information VACCINATE! IT SAVES LIVES! Members of the community who have not yet received the COVID-19 vaccine and would like to receive it can visit one of [facility] vaccine clinics. There are many vaccine clinic locations within the [facility]. For locations and available times, please visit www.gettheshot.coronavirus.[place].go v/. It is important to note that some COVID mobile vaccine clinics are held outdoors and may be canceled in rainy or stormy conditions. To learn more about pediatric vaccinations (ages 5-11), we invite you to visit the [facility] webpage. https://www.[facility].org/pag es/0848-Cafso-Lscjoqpebsn-Frequent cy-Ozlde-Nelbezaor.html To learn more about the COVID-19 vaccine, we invite you to visit the CDC website for a list of frequently asked questions. https://www.cdc.gov/coronavirus/-ncov/vaccines/faq.html [facility] Patient Portal Access Instructions: Stay connected with your healthcare team and access your personal medical information anytime with the [facility] Patient Portal. If you would like a full copy of your medical records please contact the [facility] Medical Records Department Friday through Friday between 8a.m. and 4:30p.m. Please follow the directions below to access the portal: 1.Access the email account you [facility] upon [facility].2.Look for an invitation email from [facility].3.Open the email and access the invitation link: Accept Invitation to [facility].Fill in the required perez to create your account. Sign into www.[employer] with your username and password that you created in the above steps to stay up to date. You can then view a summary of results, a summary of your visits, and the ability to download your summaries to your computer or send the information securely to a physician. Remember that your healthcare information is confidential, so carefully consider who you will allow to register on the [facility] Patient Portal for access to your information. You can also access the [facility] Patient Portal on the [employer] cristian. Simply click on Health Records under Health Data and then click on the [employer] logo. HOW TO SAFELY DISPOSE OF PRESCRIPTION MEDICATIONS Please use one of the following methods to safely dispose of your unused medications. 1.Use a drug disposal kit: the drug disposal pouch allows you to safely discard your old and unused drugs. Ask your nurse to give you one when you are discharged.2.Visit a local take-back location: Many local pharmacies and police departments have programs that collect old and unwanted prescription drugs. Call your local pharmacy or go to http://bit.Covocative/1Q8Ze7q to find one close to you.3.Make use of household items: Use cat litter or old coffee grounds to dispose medications if other options are not available. Mix your drugs with these household products, seal them in an airtight container and throw it into the garbage. Call [facility]: [phone] to be sure your drugs can be disposed of in this way. Some medicines may require a different approach.4.Never flush your medications down the toilet. IF YOU HAVE BEEN PRESCRIBED AN OPIOIDS FOR PAIN If you have been prescribed an opioid (such as hydrocodone, oxycodone or morphine), it is critical to understand the possible side effects and risks of opioid pain medications. Even when taken as directed, opioids can have several side effects including: Tolerance, meaning you might need to take more of a medication for the same pain relief. Nausea, vomiting and/or constipation. Sleepiness, dizziness, dry mouth, confusion, depression or itching. Physical dependence, meaning you have withdrawal symptoms when a medication is stopped ? this can develop within a few days. KNOW YOUR RESPONSIBILITIES It is important to know exactly how much and how often to take the opioid pain medications you are prescribed. Never take opioids in higher amounts or more often than prescribed. Do not combine opioids with alcohol or other drugs that cause drowsiness, such as benzodiazepines, also known as benzos, including diazepam and alprazolam, muscle relaxants or sleep aids. Never sell or share prescription opioids. This is illegal. Store opioids in a secure place and out of reach of others (including children, family, friends and visitors). The last page(s) of this document has been signed and retained as a CHART COPY Signatures Patient Education Materials Shortness of Breath (Dyspnea) Medication Leaflets My discharge plan and instructions have been reviewed and explained to me and I,JOSE ABDUL understand my current condition and have read and understand these discharge instructions. I have received a written copy of the plan/instructions. If I have questions, I am aware that I should contact my doctor. Patient/Clarifier Signature: Date/Time: Relationship to Patient: ___ Witness Name/Signature: Date/Time: [facility] 12-21-2023 Note ORIGINAL EXAMINATION: ONE XRAY VIEW OF THE CHEST12/21/2023 3:18 pm COMPARISON: None HISTORY: ORDERING SYSTEM PROVIDED HISTORY: Reason for Exam: Chest Pain FINDINGS: Exam limited by habitus. The heart is enlarged. There are bilateral perihilar airspace opacities and streaky interstitial markings extending toward the periphery. No pleural effusion or visible pneumothorax. No acute skeletal abnormality. IMPRESSION: Cardiomegaly with findings most consistent with moderate pulmonary edema. Superimposed infectious process not excluded. Imaging follow-up to resolution is recommended. I have personally reviewed the images of this examination and agree with the resident's findings and interpretation. Interpreted by: Yeyo Wesley Preliminary Report By: Matt Rodriguez Electronically signed By Yeyo Wesley Dictated Date: 12/21/2023 3:23:59 PM Prelim Date: 12/21/2023 3:26:53 PM Sign Date: 12/21/2023 3:28:25 PM Ordering Provider: TABATHA PAGE [facility] 12-21-2023 Note Sinus rhythm Borderline left axis deviation Abnormal R-wave progression, late transition Borderline T abnormalities, anterior leads Baseline wander in lead(s) V4 Electronic Signature: LEONEL PAGEILY DO 12/21/2023 14:45:23 [facility] 12-18-2023 Telephone encounter Note Shobha from [facility] states there were medications sent for pt yesterday [facility] 12-17-2023 Telephone encounter Note New scripts sent Elsie Kaplan APRN.CNP [facility] 12-17-2023 Miscellaneous Notes New scripts sent Elsie Kaplan APRN.CNP Clarence called and notified of below , Clarence voices understanding. Clarence is going to pass this along to retirement. Clarence asking if new scripts can be sent to [facility]? Please review and advise, Lillie Marshall RN Patient needs to be seen to evaluate why this is continuing to occur. Can increase lasix to 40mg and the potassium to 20mg both daily until seen. Thank you Elsie Kaplan APRN.CNP Clarence- [facility]- phoned with patient update: Reports pcp increased lasix and potassium for 3 days, for weight gain. Pt completed the increased doses on Friday. Pt returned to previous dose on , yesterday. Yesterday swelling was down, pt felt better, and weight was 277 #. This morning weight is up 6 lbs, to 283 #, and the weight has increased a little bit. Please advise and phone Clarence with reply: [phone] documented in this encounter [facility] 12-17-2023 Telephone encounter Note Clarence called and notified of below , Clarence voices understanding. Clarence is going to pass this along to retirement. Clarence asking if new scripts can be sent to [facility]? Please review and advise, Lillie Marshall RN [facility] 12-17-2023 Telephone encounter Note Patient needs to be seen to evaluate why this is continuing to occur. Can increase lasix to 40mg and the potassium to 20mg both daily until seen. Thank you Elsie Kaplan APRN.CNP [facility] 12-17-2023 Telephone encounter Note Clarence- [facility]- phoned with patient update: Reports pcp increased lasix and potassium for 3 days, for weight gain. Pt completed the increased doses on Friday. Pt returned to previous dose on , yesterday. Yesterday swelling was down, pt felt better, and weight was 277 #. This morning weight is up 6 lbs, to 283 #, and the weight has increased a little bit. Please advise and phone Clarence with reply: [phone] [facility] 12-12-2023 Telephone encounter Note Clarence from [facility] and states that presciption needs to be sent to [facility] and is asking for prescription to be sent to them as well at [phone]. Lillie Marshall RN [facility] 12-12-2023 Miscellaneous Notes Clarence from [facility] and states that presciption needs to be sent to [facility] and is asking for prescription to be sent to them as well at [phone]. Lillie Marshall RN documented in this encounter [facility] 12-12-2023 Telephone encounter Note Clarence notified and voiced his understanding. [facility] 12-12-2023 Miscellaneous Notes Clarence notified and voiced his understanding. Hurt current lasix and potassium dose and give Lasix 40mg daily for the next 3 days and potassium 20meq for the next 3 days as well. Then restart current dose. Follow up if no improvement. Thank you Elsie Kaplan APRN.CNP Clarence from [facility] calling patient weight this morning was 286 pounds. She has increased edema aaron legs, slightly unsteady gait, vitals good, slight shortness of breath with exertion. He said her Furosemide 20 mg one tablet every other day, wearing her compression stockings, using her lymphedema cuffs. Please advise documented in this encounter [facility] 12-12-2023 Telephone encounter Note Hurt current lasix and potassium dose and give Lasix 40mg daily for the next 3 days and potassium 20meq for the next 3 days as well. Then restart current dose. Follow up if no improvement. Thank you Elsie Kaplan APRN.OBED [facility] 12-12-2023 Telephone encounter Note Clarence from [facility] calling patient weight this morning was 286 pounds. She has increased edema aaron legs, slightly unsteady gait, vitals good, slight shortness of breath with exertion. He said her Furosemide 20 mg one tablet every other day, wearing her compression stockings, using her lymphedema cuffs. Please advise [facility] 12-08-2023 Telephone encounter Note Called and updated Clarence voiced understanding. Lacie Reyes LPN December 08, 2023 8:08 AM [facility] 12-08-2023 Miscellaneous Notes Called and updated Clarence voiceluis understanding. Lacie Reyes LPN December 08, 2023 8:08 AM Noted, verbal ok for the same Regards, Sherif Thakur MD Clarence from [facility] calling time for recert [place]. Patient retirement was purchased by another company, nurses will be there more. Patient will be weighed once weekly and log kept to bring to appts. Patient is taking her second antibiotic for cellulitis. Please advise documented in this encounter [facility] 12-05-2023 Telephone encounter Note Noted, verbal ok for the same Regards, Sherif Thakur MD [facility] 12-05-2023 Telephone encounter Note Clarence from [facility] calling time for recert [place] [facility]. Patient retirement was purchased by another company, nurses will be there more. Patient will be weighed once weekly and log kept to bring to appts. Patient is taking her second antibiotic for cellulitis. Please advise [facility] 11-24-2023 Telephone encounter Note The patient has been identified by name and date of : Yes Caregiver verified no other encounters exist for this prescription request: Yes Caregiver confirmed with patient/requestor that no other refills are due, in the near future, with this provider at this time: Yes The last office visit in the department: 11/18/2023 Does the patient have a future office visit with this provider/department: Yes 02/20/2024 Requested Prescriptions Pending Prescriptions Disp Refills ammonium lactate (LAC-HYDRIN) 12 % cream 280 g 10 Sig: APPLY TOPICALLY TO AFFECTED AREA(S) ON LEGS AT BEDTIME Pepper Walsh RN [facility] 11-24-2023 Miscellaneous Notes The patient has been identified by name and date of : Yes Caregiver verified no other encounters exist for this prescription request: Yes Caregiver confirmed with patient/requestor that no other refills are due, in the near future, with this provider at this time: Yes The last office visit in the department: 11/18/2023 Does the patient have a future office visit with this provider/department: Yes 02/20/2024 Requested Prescriptions Pending Prescriptions Disp Refills ammonium lactate (LAC-HYDRIN) 12 % cream 280 g 10 Sig: APPLY TOPICALLY TO AFFECTED AREA(S) ON LEGS AT BEDTIME Pepper Walsh RN documented in this encounter [facility] 11-18-2023 Note HNO ID: [id number] Author: SHERIF THAKUR MD Service: ? Author Type: Physician Type: Progress Notes Filed: 11/18/2023 17:45 Note Text: Reason for Visit Patient presents with: Follow Up Jose Abdul is a 42 year old female who presents here today for Above Complaints.. Health Maintenance HEPATITIS B(1 of 3 - 3-dose series) SPIROMETRY PNEUMOCOCCAL(2 - PCV) DEPRESSION ASSESSMENT MAMMOGRAM KALPESH Martell is a very pleasant 41-year-old woman with past medical history of Prader-Willi hypothyroidism, hypothalamic hypogonadism syndrome, lymphedema of the extremities, sleep apnea, mild intermittent asthma, venous insufficiency, obstructive sleep apnea and history of DVT, morbid obesity, who is here for an annual physical. Lymphedema: she has remained around 10 pounds heavier than before in the past year. There is accumulation of more fluid in the lower extremities. Her current compression wraps are not working and the compression stockings are rolling a down easy and she needs longer and newer ones. Compression therapy machine is not working well for her. Hypothyroidism. She is doing well on her current dose of Synthroid. Denies fatigue, cold intolerance and swelling in feet. TSH recently checked and normal. Patient does the lymphedema massagers and she is on the lasix. No problem-specific Assessment AND Plan notes found for this encounter. PAST MEDICAL HISTORY No date: Allergic rhinitis, cause unspecified Comment: Allergic rhinitis No date: Amenorrhea 2010: Cellulitis Comment: leg-resolved No date: Chronic obstructive asthma, unspecified No date: Lymphedema No date: Morbid obesity (HCC) No date: Other diseases of lung, not elsewhere classified Comment: BILATERAL HILAR ADENOPATHY No date: PMH - PAST MEDICAL HISTORY OF Comment: VENOUS INSUFFICENCY No date: PMH - PAST MEDICAL HISTORY OF Comment: PRADER-VALENTIN SYNDROME No date: Postinflammatory pulmonary fibrosis (HCC) Comment: recurring pneumonia 2to pulonary fibrosis No date: Thrombophlebitis No date: Unspecified intellectual disabilities Comment: mild No date: Viral pneumonia, unspecified Comment: LLL PAST SURGICAL HISTORY No date: NONE FAMILY HISTORY Problem Relation Age of Onset Diabetes Maternal Grandmother Social History Tobacco Use Smoking status: Never Smokeless tobacco: Never Substance Use Topics Alcohol use: No Drug use: No Past medical history, appointments, medications, allergies reviewed. Pertinent Lab/Diagnostic Studies are reviewed and discussed today Current Outpatient Medications: doxycycline (VIBRA-TABS) 100 mg tablet multivitamin-ferrous fumarate-folic acid (CERTAVITE-ANTIOXIDANT) fluticasone (FLONASE) 50 mcg/actuation nasal spray Nehyd-6-VJE-EPA-Fish Oil 1,000 mg (120 mg-180 mg) cap EPINEPHrine (EPIPEN) 0.3 mg/0.3 mL auto-injector levothyroxine (SYNTHROID) 100 mcg tablet DULERA 100-5 mcg/actuation inhaler nystatin (NYAMYC) powder OYSTER SHELL CALCIUM-VITAMIN D 500 mg-5 mcg (200 unit) per tablet potassium chloride ER (KLOR-CON M10) 10 mEq tablet clotrimazole (LOTRIMIN) 1 % cream albuterol HFA (VENTOLIN HFA) 90 mcg/actuation inhaler furosemide (LASIX) 20 mg tablet ammonium lactate (LAC-HYDRIN) 12 % cream naproxen (NAPROSYN) 500 mg tablet acetaminophen (TYLENOL EXTRA STRENGTH) 500 mg tablet MEDICAL SUPPLY IRAIDA 0.35 mg tablet Gauze Bandage 2 X 2 bndg Desogestrel-Ethinyl Estradiol (APRI) 0.15-0.03 mg per tablet diphenhydrAMINE (BENADRYL) 25 mg tablet cetirizine (ZYRTEC) 10 mg tablet COMPOUNDED PRESCRIPTION COMPOUNDED PRESCRIPTION COMPOUNDED PRESCRIPTION Review of Systems CONSTITUTIONAL: No fevers, chills night sweats, unintended weight loss CARDIOVASCULAR: No chest pain, dyspnea, palpitations, orthopnea, PND, ankle edema. PULM: No dyspnea, unexplained cough. GI: No dysphagia/odynophagia, problematic reflux, constipation, diarrhea, changes in stool habits, hematochezia, melena. : No new urinary complaints, including dysuria, gross hematuria or pyuria. NEURO: No new balance problems, peripheral weakness/paresthesias or numbness of concern. Physical Exam BP 134/80 Pulse 75 Resp 16 Wt 119.6 kg (263 lb 10.7 oz) LMP 05/13/2007 BMI 58.07 kg/m? General appearance: Well appearing, alert, in no acute distress, well nourished. Skin: Skin color, texture, turgor normal, no suspicious rashes or lesions Head: Normocephalic, no masses, lesions, tenderness or abnormalities Eyes: Anicteric sclera. Pupils are equally round and reactive to light. Extraocular movements are intact. Lungs: Lungs clear to auscultation. No wheezing, rhonchi, rales Heart: RRR without murmur, gallop, or rubs. Extremities: lymphedema for upper and lower extremities, significant in the lower extremities. ASSESSMENT/PLAN: 1. Lymphedema - ICD9: 457.1, ICD10: I89.0 - CONSULT TO LYMPHEDEMA THERAPY - PNEUMATIC COMPRESSION DEVICE - COMPRESSION STOCK (more content not included)... [facility] 11-18-2023 History of Present illness Narrative Reason for Visit Patient presents with: Follow Up Jose Abdul is a 42 year old female who presents here today for Above Complaints.. Health Maintenance HEPATITIS B(1 of 3 - 3-dose series) SPIROMETRY PNEUMOCOCCAL(2 - PCV) DEPRESSION ASSESSMENT MAMMOGRAM KALPESH Martell is a very pleasant 41-year-old woman with past medical history of Prader-Willi hypothyroidism, hypothalamic hypogonadism syndrome, lymphedema of the extremities, sleep apnea, mild intermittent asthma, venous insufficiency, obstructive sleep apnea and history of DVT, morbid obesity, who is here for an annual physical. Lymphedema: she has remained around 10 pounds heavier than before in the past year. There is accumulation of more fluid in the lower extremities. Her current compression wraps are not working and the compression stockings are rolling a down easy and she needs longer and newer ones. Compression therapy machine is not working well for her. Hypothyroidism. She is doing well on her current dose of Synthroid. Denies fatigue, cold intolerance and swelling in feet. TSH recently checked and normal. Patient does the lymphedema massagers and she is on the lasix. No problem-specific Assessment & Plan notes found for this encounter. PAST MEDICAL HISTORY No date: Allergic rhinitis, cause unspecified Comment: Allergic rhinitis No date: Amenorrhea 2010: Cellulitis Comment: leg-resolved No date: Chronic obstructive asthma, unspecified No date: Lymphedema No date: Morbid obesity (HCC) No date: Other diseases of lung, not elsewhere classified Comment: BILATERAL HILAR ADENOPATHY No date: PMH - PAST MEDICAL HISTORY OF Comment: VENOUS INSUFFICENCY No date: PM - PAST MEDICAL HISTORY OF Comment: PRADER-VALENTIN SYNDROME No date: Postinflammatory pulmonary fibrosis (HCC) Comment: recurring pneumonia 2to pulonary fibrosis No date: Thrombophlebitis No date: Unspecified intellectual disabilities Comment: mild No date: Viral pneumonia, unspecified Comment: LLL PAST SURGICAL HISTORY No date: NONE FAMILY HISTORY Problem Relation Age of Onset Diabetes Maternal Grandmother Social History Tobacco Use Smoking status: Never Smokeless tobacco: Never Substance Use Topics Alcohol use: No Drug use: No Past medical history, appointments, medications, allergies reviewed. Pertinent Lab/Diagnostic Studies are reviewed and discussed today Current Outpatient Medications: doxycycline (VIBRA-TABS) 100 mg tablet multivitamin-ferrous fumarate-folic acid (CERTAVITE-ANTIOXIDANT) fluticasone (FLONASE) 50 mcg/actuation nasal spray Kptng-3-QLZ-EPA-Fish Oil 1,000 mg (120 mg-180 mg) cap EPINEPHrine (EPIPEN) 0.3 mg/0.3 mL auto-injector levothyroxine (SYNTHROID) 100 mcg tablet DULERA 100-5 mcg/actuation inhaler nystatin (NYAMYC) powder OYSTER SHELL CALCIUM-VITAMIN D 500 mg-5 mcg (200 unit) per tablet potassium chloride ER (KLOR-CON M10) 10 mEq tablet clotrimazole (LOTRIMIN) 1 % cream albuterol HFA (VENTOLIN HFA) 90 mcg/actuation inhaler furosemide (LASIX) 20 mg tablet ammonium lactate (LAC-HYDRIN) 12 % cream naproxen (NAPROSYN) 500 mg tablet acetaminophen (TYLENOL EXTRA STRENGTH) 500 mg tablet MEDICAL SUPPLY IRAIDA 0.35 mg tablet Gauze Bandage 2 X 2 bndg Desogestrel-Ethinyl Estradiol (APRI) 0.15-0.03 mg per tablet diphenhydrAMINE (BENADRYL) 25 mg tablet cetirizine (ZYRTEC) 10 mg tablet COMPOUNDED PRESCRIPTION COMPOUNDED PRESCRIPTION COMPOUNDED PRESCRIPTION Review of Systems CONSTITUTIONAL: No fevers, chills night sweats, unintended weight loss CARDIOVASCULAR: No chest pain, dyspnea, palpitations, orthopnea, PND, ankle edema. PULM: No dyspnea, unexplained cough. GI: No dysphagia/odynophagia, problematic reflux, constipation, diarrhea, changes in stool habits, hematochezia, melena. : No new urinary complaints, including dysuria, gross hematuria or pyuria. NEURO: No new balance problems, peripheral weakness/paresthesias or numbness of concern. Physical Exam BP 134/80 Pulse 75 Resp 16 Wt 119.6 kg (263 lb 10.7 oz) LMP 05/13/2007 BMI 58.07 kg/m General appearance: Well appearing, alert, in no acute distress, well nourished. Skin: Skin color, texture, turgor normal, no suspicious rashes or lesions Head: Normocephalic, no masses, lesions, tenderness or abnormalities Eyes: Anicteric sclera. Pupils are equally round and reactive to light. Extraocular movements are intact. Lungs: Lungs clear to auscultation. No wheezing, rhonchi, rales Heart: RRR without murmur, gallop, or rubs. Extremities: lymphedema for upper and lower extremities, significant in the lower extremities. ASSESSMENT/PLAN: 1. Lymphedema - ICD9: 457.1, ICD10: I89.0 - CONSULT TO LYMPHEDEMA THERAPY - PNEUMATIC COMPRESSION DEVICE - COMPRESSION STOCKINGS - COMPRESSION THIGH HI 30-40WT - TRUE COMFORT KNEE COMPRESSION WRAP - FUROSEMIDE 20 MG TABLET - POTASSIUM CHLORIDE ER 10 MEQ TABLET,EXTENDED RELEASE(PART/CRYST) Sherif Ganta, MD documented in this encounter [facility] 11-13-2023 Telephone encounter Note Shaunna notified. [facility] 11-13-2023 Miscellaneous Notes Shaunna notified. ----- Message from Elsie Kaplan APRN.CNP sent at 11/13/2023 2:13 PM EDT ----- Please let [facility] home know preliminary result of US is negative for blood clot. Thank you Elsie Kaplan APRN.CNP documented in this encounter [facility] 11-13-2023 Telephone encounter Note ----- Message from Elsie Kaplan APRN.CNP sent at 11/13/2023 2:13 PM EDT ----- Please let [facility] know preliminary result of US is negative for blood clot. Thank you Elsie Kaplan APRN.CNP [facility] 11-13-2023 Telephone encounter Note Discussed in appointment today Elsie Kaplan APRN.MANAGING DIRECTOR ATLAS [facility] 11-13-2023 Miscellaneous Notes Discussed in appointment today Elsie Kaplan APRN.MANAGING DIRECTOR ATLAS Clarence called back with more information. He weighed pt today and she weighed 265. She normally weighs 250 to 255. Per Clarence pt may be going to Urgent Care somewhere, he wasn't sure. Pamela Singh LPN Clarence from [facility] calling 2 weeks ago ER put her on antibiotics for cellulitis left lower leg, she has completed rx. He said her left leg is sore, no redness that he can see, but did not remove her wraps totally. Aware appt on 11/17 for follow up. He is going to call and see if can get transportation sooner to schedule appt before the end of this week to be seen by PCP. documented in this encounter [facility] 11-13-2023 Instructions Elsie Kaplan APRN.OBED - 11/13/2023 11:25 AM EDT Take Lasix daily with daily potassium supplement for the next 4 days. Hold multivitamin and calcium while on doxycycline. documented in this encounter [facility] 11-13-2023 Note HNO ID: [id number] Author: ELSIE KAPLAN APRN.OBED Service: ? Author Type: Nurse Practitioner Type: Progress Notes Filed: 11/13/2023 12:41 Note Text: CC: Patient presents with: Recheck: ER follow up, cellulitis completed AIB HPI Jose Abdul is a 43 year old female who presents today for cellulitis Unsure if there was injury or what caused infection but noticed while playing basketball that leg was red, hot, more swollen then usual and painful. Went immediately to [place] ER on 10/29. No US completed to rule out DVT and lab work stable. Completed antibiotic, cephalexin for 5 days, as ordered and lasix was also increased to 40mg for 5 days. Per patient there was no improvement in symptoms. Still red, more swollen then usual, and tender. Also was told she is weighing heavier then usual ut weight in office is similar to last one. Denies fever, chills, drainage, red streaking, shortness of breath, chest pain, palpitations, or any other new concerns. REVIEW OF SYSTEMS See HPI PAST MEDICAL HISTORY No date: Allergic rhinitis, cause unspecified Comment: Allergic rhinitis No date: Amenorrhea 2010: Cellulitis Comment: leg-resolved No date: Chronic obstructive asthma, unspecified No date: Lymphedema No date: Morbid obesity (HCC) No date: Other diseases of lung, not elsewhere classified Comment: BILATERAL HILAR ADENOPATHY No date: PMH - PAST MEDICAL HISTORY OF Comment: VENOUS INSUFFICENCY No date: PMH - PAST MEDICAL HISTORY OF Comment: PRADER-VALENTIN SYNDROME No date: Postinflammatory pulmonary fibrosis (HCC) Comment: recurring pneumonia 2to pulonary fibrosis No date: Thrombophlebitis No date: Unspecified intellectual disabilities Comment: mild No date: Viral pneumonia, unspecified Comment: LLL PAST SURGICAL HISTORY No date: NONE ALLERGIES Bee Sting and Dilantin [Phenytoin Sodium Extended] MEDICATIONS multivitamin-ferrous fumarate-folic acid (CERTAVITE-ANTIOXIDANT) Take 1 tablet by mouth once daily. fluticasone (FLONASE) 50 mcg/actuation nasal spray INSTILL 2 SPRAYS IN EACH NOSTRIL DAILY Uiiet-7-VGR-EPA-Fish Oil 1,000 mg (120 mg-180 mg) cap Take 1 capsule by mouth once daily. EPINEPHrine (EPIPEN) 0.3 mg/0.3 mL auto-injector INJECT 1 PEN INTO LATERAL THIGH DIRECTED FOR ALLERGIC REACTIONS TO BEE/WASP STINGS MAY REPEAT IN 5-15 MINUTES IF SYMPTOMS PERSIST * *STAFF REORDER, 4 DAYS IN ADVANCE* levothyroxine (SYNTHROID) 100 mcg tablet take one tablet by mouth daily one hour before breakfast DULERA 100-5 mcg/actuation inhaler INHALE 2 PUFFS BY MOUTH TWICE DAILY ( INSTRUCTED) nystatin (NYAMYC) powder APPLY TOPICALLY TWICE DAILY TO AFFECTED AREA(S) ON ABDOMINAL FOLDS OYSTER SHELL CALCIUM-VITAMIN D 500 mg-5 mcg (200 unit) per tablet take one tablet by mouth twice daily with meals potassium chloride ER (KLOR-CON M10) 10 mEq tablet TAKE ONE TABLET BY MOUTH EVERY OTHER DAY ( WITH BREAKFAST) ON DAYS WHEN YOU TAKE LASIX (FUROSEMIDE) clotrimazole (LOTRIMIN) 1 % cream APPLY TOPICALLY TO AFFECTED AREA(S) ON BILATERAL GROIN TWICE DAILY albuterol HFA (VENTOLIN HFA) 90 mcg/actuation inhaler Inhale 2 Puffs as instructed every 4 hours as needed for wheezing/shortness of breath. furosemide (LASIX) 20 mg tablet TAKE ONE TABLET BY MOUTH EVERY OTHER DAY FOR LYMPHEDEMA ammonium lactate (LAC-HYDRIN) 12 % cream APPLY TOPICALLY TO AFFECTED AREA(S) ON LEGS AT BEDTIME naproxen (NAPROSYN) 500 mg tablet TAKE ONE TABLET BY MOUTH TWICE DAILY NEEDED FOR PAIN/INFLAMMATION OF KNEE *TAKE WITH FOOD* *STAFF REORDER, 4 DAYS IN ADVANCE* acetaminophen (TYLENOL EXTRA STRENGTH) 500 mg tablet Take 2 tablets by mouth every 8 hours as needed for pain (For knee pain). MEDICAL SUPPLY Lymphedema massage therapy IRAIDA 0.35 mg tablet Gauze Bandage 2 X 2 bndg Apply 1 application to affected area twice daily. Desogestrel-Ethinyl Estradiol (APRI) 0.15-0.03 mg per tablet Take 1 tablet by mouth once daily. diphenhydrAMINE (BENADRYL) 25 mg tablet Take 1 tablet by mouth every 6 hours as needed. cetirizine (ZYRTEC) 10 mg tablet Take 1 tablet by mouth once daily. COMPOUNDED PRESCRIPTION 1 Each once daily. Custom 20-30mmHg knee high compression stockings. Dx: Recurrent cellulitis legs and morbid obesity.Lymph Edema 8am for 2 pairs per year COMPOUNDED PRESCRIPTION Pt's body checks to be completed once weekly during the day. COMPOUNDED PRESCRIPTION Weight check q Sun at 8pm and q Fri at 4pm Dx:Q87.1 (Patient not taking: No sig reported) FAMILY HISTORY Problem Relation Age of Onset Diabetes Maternal Grandmother Social History Tobacco Use Smoking status: Never Smokeless tobacco: Never Substance Use Topics Alcohol use: No Drug use: No PHYSICAL EXAM Temp 36.8 ?C (98.2 ?F) (Temporal) LMP 05/13/2007 General Appearance: well appearing, in no acute distress, alert Skin: LLE with typical lymph edema but very tender with redness from upper gonzales down to ankle. No ope (more content not included)... [facility] 11-13-2023 History of Present illness Narrative CC: Patient presents with: Recheck: ER follow up, cellulitis completed AIB HPI Jose Abdul is a 43 year old female who presents today for cellulitis Unsure if there was injury or what caused infection but noticed while playing basketball that leg was red, hot, more swollen then usual and painful. Went immediately to [place] ER on 10/29. No US completed to rule out DVT and lab work stable. Completed antibiotic, cephalexin for 5 days, as ordered and lasix was also increased to 40mg for 5 days. Per patient there was no improvement in symptoms. Still red, more swollen then usual, and tender. Also was told she is weighing heavier then usual ut weight in office is similar to last one. Denies fever, chills, drainage, red streaking, shortness of breath, chest pain, palpitations, or any other new concerns. REVIEW OF SYSTEMS See HPI PAST MEDICAL HISTORY No date: Allergic rhinitis, cause unspecified Comment: Allergic rhinitis No date: Amenorrhea 2010: Cellulitis Comment: leg-resolved No date: Chronic obstructive asthma, unspecified No date: Lymphedema No date: Morbid obesity (HCC) No date: Other diseases of lung, not elsewhere classified Comment: BILATERAL HILAR ADENOPATHY No date: PMH - PAST MEDICAL HISTORY OF Comment: VENOUS INSUFFICENCY No date: PMH - PAST MEDICAL HISTORY OF Comment: PRADER-VALENTIN SYNDROME No date: Postinflammatory pulmonary fibrosis (HCC) Comment: recurring pneumonia 2to pulonary fibrosis No date: Thrombophlebitis No date: Unspecified intellectual disabilities Comment: mild No date: Viral pneumonia, unspecified Comment: LLL PAST SURGICAL HISTORY No date: NONE ALLERGIES Bee Sting and Dilantin [Phenytoin Sodium Extended] MEDICATIONS multivitamin-ferrous fumarate-folic acid (CERTAVITE-ANTIOXIDANT) Take 1 tablet by mouth once daily. fluticasone (FLONASE) 50 mcg/actuation nasal spray INSTILL 2 SPRAYS IN EACH NOSTRIL DAILY Lcbik-8-JND-EPA-Fish Oil 1,000 mg (120 mg-180 mg) cap Take 1 capsule by mouth once daily. EPINEPHrine (EPIPEN) 0.3 mg/0.3 mL auto-injector INJECT 1 PEN INTO LATERAL THIGH DIRECTED FOR ALLERGIC REACTIONS TO BEE/WASP STINGS MAY REPEAT IN 5-15 MINUTES IF SYMPTOMS PERSIST * *STAFF REORDER, 4 DAYS IN ADVANCE* levothyroxine (SYNTHROID) 100 mcg tablet take one tablet by mouth daily one hour before breakfast DULERA 100-5 mcg/actuation inhaler INHALE 2 PUFFS BY MOUTH TWICE DAILY ( INSTRUCTED) nystatin (NYAMYC) powder APPLY TOPICALLY TWICE DAILY TO AFFECTED AREA(S) ON ABDOMINAL FOLDS OYSTER SHELL CALCIUM-VITAMIN D 500 mg-5 mcg (200 unit) per tablet take one tablet by mouth twice daily with meals potassium chloride ER (KLOR-CON M10) 10 mEq tablet TAKE ONE TABLET BY MOUTH EVERY OTHER DAY ( WITH BREAKFAST) ON DAYS WHEN YOU TAKE LASIX (FUROSEMIDE) clotrimazole (LOTRIMIN) 1 % cream APPLY TOPICALLY TO AFFECTED AREA(S) ON BILATERAL GROIN TWICE DAILY albuterol HFA (VENTOLIN HFA) 90 mcg/actuation inhaler Inhale 2 Puffs as instructed every 4 hours as needed for wheezing/shortness of breath. furosemide (LASIX) 20 mg tablet TAKE ONE TABLET BY MOUTH EVERY OTHER DAY FOR LYMPHEDEMA ammonium lactate (LAC-HYDRIN) 12 % cream APPLY TOPICALLY TO AFFECTED AREA(S) ON LEGS AT BEDTIME naproxen (NAPROSYN) 500 mg tablet TAKE ONE TABLET BY MOUTH TWICE DAILY NEEDED FOR PAIN/INFLAMMATION OF KNEE *TAKE WITH FOOD* *STAFF REORDER, 4 DAYS IN ADVANCE* acetaminophen (TYLENOL EXTRA STRENGTH) 500 mg tablet Take 2 tablets by mouth every 8 hours as needed for pain (For knee pain). MEDICAL SUPPLY Lymphedema massage therapy IRAIDA 0.35 mg tablet Gauze Bandage 2 X 2 bndg Apply 1 application to affected area twice daily. Desogestrel-Ethinyl Estradiol (APRI) 0.15-0.03 mg per tablet Take 1 tablet by mouth once daily. diphenhydrAMINE (BENADRYL) 25 mg tablet Take 1 tablet by mouth every 6 hours as needed. cetirizine (ZYRTEC) 10 mg tablet Take 1 tablet by mouth once daily. COMPOUNDED PRESCRIPTION 1 Each once daily. Custom 20-30mmHg knee high compression stockings. Dx: Recurrent cellulitis legs and morbid obesity.Lymph Edema 8am for 2 pairs per year COMPOUNDED PRESCRIPTION Pt's body checks to be completed once weekly during the day. COMPOUNDED PRESCRIPTION Weight check q Sun at 8pm and q Fri at 4pm Dx:Q87.1 (Patient not taking: No sig reported) FAMILY HISTORY Problem Relation Age of Onset Diabetes Maternal Grandmother Social History Tobacco Use Smoking status: Never Smokeless tobacco: Never Substance Use Topics Alcohol use: No Drug use: No PHYSICAL EXAM Temp 36.8 C (98.2 F) (Temporal) LMP 05/13/2007 General Appearance: well appearing, in no acute distress, alert Skin: LLE with typical lymph edema but very tender with redness from upper gonzales down to ankle. No open areas but dry scaly circular area to lower medial part. No red streaking. Eyes: conjunctiva pink and moist, no icterus, sclera white, non-injected Lungs: Lungs clear to auscultation. No wheezing, rhonchi, rales. Heart: RRR without murmur, gallop, or rubs. No ectopy Health maintenance reviewed with patient: Spirometry Never done Depression Screening Never done Anxiety Screening Never done Hepatitis B Vaccine(1 of 3 - 19+ 3-dose series) Never done Covid-19 Vaccine( season) due on 11/09/2023 Influenza Vaccine(1) due on 11/09/2023 Annual PCP Team Chronic Disease Visit due on 03/19/2024 Mammogram Screening due on 07/03/2024 DTaP,Tdap,Td Vaccine(2 - Td or Tdap) due on 01/09/2025 Cervical Cancer Screening due on 05/22/2026 Hepatitis C Screening Completed HIV Screening Completed HPV Vaccine Aged Out DATA REVIEWED: Outside chart from [facility] reviewed. ASSESSMENT/PLAN: 1. Cellulitis of left lower extremity - ICD9: 682.6, ICD10: L03.116 (primary diagnosis) - No lymphangetic streaking, this was defined for patient to watch for and to seek medical care immediately if appears - DOXYCYCLINE HYCLATE 100 MG TABLET - give lasix and potassium daily for the next 4 days - continue with compression socks and elevate legs as jayme throughout the day - go to ER for increased redness, increased pain, fever, red streaking. Or any other urgent concern Follow up early next week for revaluation 2. Pain of left lower extremity - ICD9: 729.5, ICD10: M79.605 As above Will further evaluate for DVT as well - US LEG VEIN DVT [facility] 3. Edema, unspecified type - ICD9: 782.3, ICD10: R60.9 As above and see #1 - US LEG VEIN DVT [facility] Prescription instructions reviewed with patient as applicable. Potential red flag symptoms discussed with the patient. Reviewed appropriate action plan to take if red flag symptoms occur. Patient agreeable to treatment plan. Elsie Kaplan APRN.OBED documented in this encounter [facility] 11-12-2023 Telephone encounter Note Clarence called back with more information. He weighed pt today and she weighed 265. She normally weighs 250 to 255. Per Clarence pt may be going to Urgent Care somewhere, he wasn't sure. Pamela Singh LPN [facility] 11-12-2023 Telephone encounter Note Clarence from [facility] calling 2 weeks ago ER put her on antibiotics for cellulitis left lower leg, she has completed rx. He said her left leg is sore, no redness that he can see, but did not remove her wraps totally. Aware appt on 11/17 for follow up. He is going to call and see if can get transportation sooner to schedule appt before the end of this week to be seen by PCP. [facility] 10-10-2023 Telephone encounter Note Phoned Clarence and went over notes below from Dr Thakur with understanding. [facility] 10-10-2023 Miscellaneous Notes Phoned Clarence and went over notes below from Dr Thakur with understanding. Agree Sherif Lassiter MD Clarence from [facility] calling to recert orders for [facility] for the patient, if PCP would agree. Please advise documented in this encounter [facility] 10-09-2023 Telephone encounter Note Agree Sherif Lassiter MD [facility] 10-09-2023 Telephone encounter Note Noted and agree Sherif Lassiter MD [facility] 10-09-2023 Miscellaneous Notes Noted and agree Sherif Lassiter MD Stephanie with [facility] calling to update PCP that patient has 3cm open area to her right gonzales. Will keep it open to air and does not feel dressing is necessary. Patient is unsure how she acquired it but does pick at skin. HH Nursing will continue to monitor area. No call back needed, if provider agreeable. Pepper Walsh RN . documented in this encounter [facility] 10-09-2023 Telephone encounter Note Stephanie with [facility] calling to update PCP that patient has 3cm open area to her right gonzales. Will keep it open to air and does not feel dressing is necessary. Patient is unsure how she acquired it but does pick at skin. HH Nursing will continue to monitor area. No call back needed, if provider agreeable. Pepper Walsh RN . [facility] 10-09-2023 Telephone encounter Note Clarence from [facility] calling to recert orders for [facility] for the patient, if PCP would agree. Please advise [facility] 09-19-2023 Telephone encounter Note Prescription Refill Information The patient has been identified by name and date of : Yes Caregiver verified no other encounters exist for this prescription request: Yes Caregiver confirmed with patient/requestor that no other refills are due, in the near future, with this provider at this time: Yes The last office visit in the department: 03/19/23 Does the patient have a future office visit with this provider/department: Yes Requested Prescriptions Pending Prescriptions Disp Refills multivitamin-ferrous fumarate-folic acid (CERTAVITE-ANTIOXIDANT) 31 tablet 10 Sig: Take 1 tablet by mouth once daily. Pascale Cerna LPN September 19, 2023 12:56 PM [facility] 09-19-2023 Miscellaneous Notes Prescription Refill Information The patient has been identified by name and date of : Yes Caregiver verified no other encounters exist for this prescription request: Yes Caregiver confirmed with patient/requestor that no other refills are due, in the near future, with this provider at this time: Yes The last office visit in the department: 03/19/23 Does the patient have a future office visit with this provider/department: Yes Requested Prescriptions Pending Prescriptions Disp Refills multivitamin-ferrous fumarate-folic acid (CERTAVITE-ANTIOXIDANT) 31 tablet 10 Sig: Take 1 tablet by mouth once daily. Pascale Cerna LPN September 19, 2023 12:56 PM Prescription Refill Information The patient has been identified by name and date of : Yes Caregiver verified no other encounters exist for this prescription request: Yes Caregiver confirmed with patient/requestor that no other refills are due, in the near future, with this provider at this time: Yes The last office visit in the department: 09/17/2023 Does the patient have a future office visit with this provider/department: Yes Requested Prescriptions Pending Prescriptions Disp Refills multivitamin-ferrous fumarate-folic acid (CERTAVITE-ANTIOXIDANT) 31 tablet 10 Sig: Take 1 tablet by mouth once daily. Usha Zuniga September 19, 2023 12:30 PM documented in this encounter [facility] 09-19-2023 Telephone encounter Note Prescription Refill Information The patient has been identified by name and date of : Yes Caregiver verified no other encounters exist for this prescription request: Yes Caregiver confirmed with patient/requestor that no other refills are due, in the near future, with this provider at this time: Yes The last office visit in the department: 09/17/2023 Does the patient have a future office visit with this provider/department: Yes Requested Prescriptions Pending Prescriptions Disp Refills multivitamin-ferrous fumarate-folic acid (CERTAVITE-ANTIOXIDANT) 31 tablet 10 Sig: Take 1 tablet by mouth once daily. Usha Zuniga September 19, 2023 12:30 PM [facility] 08-22-2023 Telephone encounter Note Prescription Refill Information The patient has been identified by name and date of : Yes Caregiver verified no other encounters exist for this prescription request: Yes Caregiver confirmed with patient/requestor that no other refills are due, in the near future, with this provider at this time: Yes The last office visit in the department: 03/19/23 Does the patient have a future office visit with this provider/department: Yes Requested Prescriptions Pending Prescriptions Disp Refills fluticasone (FLONASE) 50 mcg/actuation nasal spray 16 g 10 Sig: INSTILL 2 SPRAYS IN EACH NOSTRIL DAILY Bxuit-9-RZE-EPA-Fish Oil 1,000 mg (120 mg-180 mg) cap 31 capsule 10 Sig: Take 1 capsule by mouth once daily. Aaliyah Schofield [facility] August 22, 2023 12:51 PM [facility] Work Phone: 08-22-2023 Miscellaneous Notes Prescription Refill Information The patient has been identified by name and date of : Yes Caregiver verified no other encounters exist for this prescription request: Yes Caregiver confirmed with patient/requestor that no other refills are due, in the near future, with this provider at this time: Yes The last office visit in the department: 03/19/23 Does the patient have a future office visit with this provider/department: Yes Requested Prescriptions Pending Prescriptions Disp Refills fluticasone (FLONASE) 50 mcg/actuation nasal spray 16 g 10 Sig: INSTILL 2 SPRAYS IN EACH NOSTRIL DAILY Mclji-1-QXW-EPA-Fish Oil 1,000 mg (120 mg-180 mg) cap 31 capsule 10 Sig: Take 1 capsule by mouth once daily. Aaliyah Schofield [facility] August 22, 2023 12:51 PM documented in this encounter [facility] 08-11-2023 Telephone encounter Note Pharmacy request denied. Patient needs to contact office for refills. Aaliyah Gonzalez MA [facility] 08-11-2023 Miscellaneous Notes Pharmacy request denied. Patient needs to contact office for refills. Aaliyah Gonzalez MA documented in this encounter [facility] 08-07-2023 Telephone encounter Note Clarence informed of below. ANUPAMA Lira [facility] 08-07-2023 Miscellaneous Notes Clarence informed of below. ANUPAMA Lira [place] Clarence from [facility] calls to see if provider will continue to [place] [facility] Lillie Marshall RN documented in this encounter [facility] 08-07-2023 Telephone encounter Note OK [facility] 08-07-2023 Telephone encounter Note Clarence from [facility] calls to see if provider will continue to [place] orders [place] [facility]? Lillie Marshall RN [facility] 08-06-2023 Telephone encounter Note Prescription Refill Information The patient has been identified by name and date of : Yes Caregiver verified no other encounters exist for this prescription request: Yes Caregiver confirmed with patient/requestor that no other refills are due, in the near future, with this provider at this time: Yes The last office visit in the department: 03/19/23 Does the patient have a future office visit with this provider/department: Yes Requested Prescriptions Pending Prescriptions Disp Refills EPINEPHrine (EPIPEN) 0.3 mg/0.3 mL auto-injector 2 Each 10 Sig: INJECT 1 PEN INTO LATERAL THIGH DIRECTED FOR ALLERGIC REACTIONS TO BEE/WASP STINGS MAY REPEAT IN 5-15 MINUTES IF SYMPTOMS PERSIST * *STAFF REORDER, 4 DAYS IN ADVANCE* Pascale Henderson LPN August 06, 2023 4:16 PM [facility] 08-06-2023 Miscellaneous Notes Prescription Refill Information The patient has been identified by name and date of : Yes Caregiver verified no other encounters exist for this prescription request: Yes Caregiver confirmed with patient/requestor that no other refills are due, in the near future, with this provider at this time: Yes The last office visit in the department: 03/19/23 Does the patient have a future office visit with this provider/department: Yes Requested Prescriptions Pending Prescriptions Disp Refills EPINEPHrine (EPIPEN) 0.3 mg/0.3 mL auto-injector 2 Each 10 Sig: INJECT 1 PEN INTO LATERAL THIGH DIRECTED FOR ALLERGIC REACTIONS TO BEE/WASP STINGS MAY REPEAT IN 5-15 MINUTES IF SYMPTOMS PERSIST * *STAFF REORDER, 4 DAYS IN ADVANCE* Pascale Henderson LPN August 06, 2023 4:16 PM Patient has been identified by name and date of : Yes, Provider Sherif Thakur MD Date 08/06/2023 Time 3:30 pm Parent/Guardian phones for refill(s): Requested Prescriptions Pending Prescriptions Disp Refills EPINEPHrine (EPIPEN) 0.3 mg/0.3 mL auto-injector 2 Each 10 Sig: INJECT 1 PEN INTO LATERAL THIGH DIRECTED FOR ALLERGIC REACTIONS TO BEE/WASP STINGS MAY REPEAT IN 5-15 MINUTES IF SYMPTOMS PERSIST * *STAFF REORDER, 4 DAYS IN ADVANCE* Date of last office visit in primary care: 03/19/2023 Date of next office visit in primary care: Please advise. Thank you. Monica Grady. documented in this encounter [facility] 08-06-2023 Telephone encounter Note Patient has been identified by name and date of : Yes, Provider Sherif Thakur MD Date 08/06/2023 Time 3:30 pm Parent/Guardian phones for refill(s): Requested Prescriptions Pending Prescriptions Disp Refills EPINEPHrine (EPIPEN) 0.3 mg/0.3 mL auto-injector 2 Each 10 Sig: INJECT 1 PEN INTO LATERAL THIGH DIRECTED FOR ALLERGIC REACTIONS TO BEE/WASP STINGS MAY REPEAT IN 5-15 MINUTES IF SYMPTOMS PERSIST * *STAFF REORDER, 4 DAYS IN ADVANCE* Date of last office visit in primary care: 03/19/2023 Date of next office visit in primary care: Please advise. Thank you. Monica Grady. [facility] 07-21-2023 Telephone encounter Note Patient has been identified by name and date of : Yes Patient phones for refill(s): Requested Prescriptions Pending Prescriptions Disp Refills levothyroxine (SYNTHROID) 100 mcg tablet 31 tablet 10 Sig: take one tablet by mouth daily one hour before breakfast Date of last office visit in primary care: 03/19/2023 Date of next office visit in primary care: 03/22/2024 Please advise. Thank you. Aaliyah Gonzalez MA. [facility] 07-21-2023 Miscellaneous Notes Patient has been identified by name and date of : Yes Patient phones for refill(s): Requested Prescriptions Pending Prescriptions Disp Refills levothyroxine (SYNTHROID) 100 mcg tablet 31 tablet 10 Sig: take one tablet by mouth daily one hour before breakfast Date of last office visit in primary care: 03/19/2023 Date of next office visit in primary care: 03/22/2024 Please advise. Thank you. Aaliyah Gonzalez MA. Patient has been identified by name and date of : Yes Requested Prescriptions Pending Prescriptions Disp Refills levothyroxine (SYNTHROID) 100 mcg tablet 31 tablet 10 Sig: take one tablet by mouth daily one hour before breakfast RX INSTRUCTIONS: Patient aware RX will be sent to pharmacy. No need to notify patient. Usha Zuniga documented in this encounter [facility] 07-21-2023 Telephone encounter Note Patient has been identified by name and date of : Yes Requested Prescriptions Pending Prescriptions Disp Refills levothyroxine (SYNTHROID) 100 mcg tablet 31 tablet 10 Sig: take one tablet by mouth daily one hour before breakfast RX INSTRUCTIONS: Patient aware RX will be sent to pharmacy. No need to notify patient. Usha Zuniga [facility] 07-08-2023 Telephone encounter Note Patient has been identified by name and date of : No Patient phones for refill(s): Requested Prescriptions Pending Prescriptions Disp Refills DULERA 100-5 mcg/actuation inhaler [Pharmacy Med Name: Dulera 100-5 MCG/ACT Aerosol] 13 g 10 Sig: INHALE 2 PUFFS BY MOUTH TWICE DAILY ( INSTRUCTED) nystatin (NYAMYC) powder [Pharmacy Med Name: Nyamyc [id number] UNIT/GM Powder] 60 g 10 Sig: APPLY TOPICALLY TWICE DAILY TO AFFECTED AREA(S) ON ABDOMINAL FOLDS Date of last office visit in primary care: 03/19/2023 Date of next office visit in primary care: 03/22/2024 Please advise. Thank you. Pascale Henderson LPN. [facility] 07-08-2023 Miscellaneous Notes Patient has been identified by name and date of : No Patient phones for refill(s): Requested Prescriptions Pending Prescriptions Disp Refills DULERA 100-5 mcg/actuation inhaler [Pharmacy Med Name: Dulera 100-5 MCG/ACT Aerosol] 13 g 10 Sig: INHALE 2 PUFFS BY MOUTH TWICE DAILY ( INSTRUCTED) nystatin (NYAMYC) powder [Pharmacy Med Name: Nyamyc [id number] UNIT/GM Powder] 60 g 10 Sig: APPLY TOPICALLY TWICE DAILY TO AFFECTED AREA(S) ON ABDOMINAL FOLDS Date of last office visit in primary care: 03/19/2023 Date of next office visit in primary care: 03/22/2024 Please advise. Thank you. Pascale Henderson LPN. documented in this encounter [facility] 07-08-2023 Telephone encounter Note Patient has been identified by name and date of : No Patient phones for refill(s): Requested Prescriptions Pending Prescriptions Disp Refills OYSTER SHELL CALCIUM-VITAMIN D 500 mg-5 mcg (200 unit) per tablet [Pharmacy Med Name: Oyster Shell Calcium w/D 500-5 MG-MCG Tablet] 62 tablet 10 Sig: take one tablet by mouth twice daily with meals Date of last office visit in primary care: 03/19/2023 Date of next office visit in primary care: 03/22/2024 Please advise. Thank you. Pascale Henderson LPN. [facility] 07-08-2023 Miscellaneous Notes Patient has been identified by name and date of : No Patient phones for refill(s): Requested Prescriptions Pending Prescriptions Disp Refills OYSTER SHELL CALCIUM-VITAMIN D 500 mg-5 mcg (200 unit) per tablet [Pharmacy Med Name: Oyster Shell Calcium w/D 500-5 MG-MCG Tablet] 62 tablet 10 Sig: take one tablet by mouth twice daily with meals Date of last office visit in primary care: 03/19/2023 Date of next office visit in primary care: 03/22/2024 Please advise. Thank you. Pascale Henderson LPN. documented in this encounter [facility] 06-13-2023 Miscellaneous Notes Patient has been identified by name and date of : No Patient phones for refill(s): Requested Prescriptions Pending Prescriptions Disp Refills potassium chloride ER (KLOR-CON M10) 10 mEq tablet [Pharmacy Med Name: Potassium Chloride Magda ER 10 MEQ Tablet extended release] 16 tablet 11 Sig: TAKE ONE TABLET BY MOUTH EVERY OTHER DAY ( WITH BREAKFAST) ON DAYS WHEN YOU TAKE LASIX (FUROSEMIDE) Date of last office visit in primary care: 03/19/2023 with Teresa Date of next office visit in primary care: Visit date not found Phoned both phone numbers and left message that appointment is needed for Jayshree in August and September 2023. Please advise. Thank you. Pascale Henderson LPN. documented in this encounter [facility] 06-02-2023 Miscellaneous Notes Left message for return call. Tried calling warehouse engineer, call was dropped. Dulera ordered in equivalent dosing to symbicort. Call retirement to give below information and change in inhaler. Patient needs to follow up in 4 weeks. Te evaluate how she is doing on new inhaler. Thank you Elsie Kaplan APRN.OBED The budesonide formoterol (symbicort) was denied. Denied today This drug is not covered on the formulary. We are denying your request because we do not show that you have tried at least 2 covered drugs that can treat your condition. You have already tried Advair. Other covered drugs are: Breo Ellipta inhalation blister with device (50-25 MCG/DOSE, 100-25 MCG/DOSE, 200-25 MCG/DOSE), Dulera inhalation HFA aerosol inhaler (50-5 MCG/ACTUATION, 100-5 MCG/ACTUATION, 200-5 MCG/ACTUATION). Drug Budesonide-Formoterol Fumarate 160-4.5MCG/ACT aerosol Message left for pts caregiver to return call to a nurse. Jose Abdul (Griffith: [id number]) - [phone] Budesonide-Formoterol Fumarate 160-4.5MCG/ACT aerosol Status: PA Request Created: March 13, 2023 [id number] Sent: May 26, 2023 Prior Authorization Documentation Prior authorization requested for the following medication: Medication: Symbicort Provider: Teresa Yeung Insurance Company Name: Medicare A/B and Medicaid secondary Insurance Company Phone number: Not listed Patient ID number: Medicare: [id number] Medicaid: [id number] Pharmacy Name: [facility] Telephone number: [phone]. Caregiver calls to request. Reports pharmacy is also faxing request. Eulalia Laureano RN documented in this encounter [facility] 05-30-2023 Miscellaneous Notes Faxed to [facility] as requested. Patient verified by name and . Her care provider, Shaunna Cuenca calling to request a mammogram screening order be faxed to [facility] to complete. She can be reached at [phone] with any questions. Please review and advise. documented in this encounter [facility] 03-19-2023 Note HNO ID: [id number] Author: TERESA YEUNG APRN.MANAGING DIRECTOR ATLAS Service: ? Author Type: Nurse Practitioner Type: Progress Notes Filed: 03/19/2023 16:20 Note Text: CHIEF COMPLAINT: Patient presents with: Physical: Forms need completed HISTORY: Jose Abdul is a 42 year old female who presents 03/19/2023 for her Yearly Physical Exam. They are here today for a wellness exam. Generally feels well and does not have complaints. Is able to complete ADL's with some assist. She currently lives in a home managed by [facility] and is accompanied by a care transition coordinator today. 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 Other Providers: Podiatry, Dr. Lyubov Fontenot with candy department manager with [facility] Depression Screen Q1: Over the past two weeks, have you felt down, depressed or hopeless? No Q2: Over the past two weeks, have you felt little interest or pleasure in doing things? No Home status: Lives with Current exercise habits: active with special [employer] Dietary habits: Cora pryor Hearing difficulties: no Safe in current home environment: Yes Tobacco: NO ETOH: No RELIEF MASTER History: LMP: Patient's last menstrual period was 05/13/2007. 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 2to pulonary fibrosis Thrombophlebitis Unspecified intellectual disabilities mild Viral pneumonia, unspecified LLL Family Medical History: FAMILY HISTORY Problem Relation Age of Onset Diabetes Maternal Grandmother Social History: Social History Tobacco Use Smoking status: Never Smokeless tobacco: Never Substance Use Topics Alcohol use: No Drug use: No Allergies: ALLERGIES Allergen Reactions Bee Sting Anaphylaxis Dilantin [Phenytoin* Medications: Current Outpatient Medications Medication Sig albuterol HFA (VENTOLIN HFA) 90 mcg/actuation inhaler Inhale 2 Puffs as instructed every 4 hours as needed for wheezing/shortness of breath. furosemide (LASIX) 20 mg tablet TAKE ONE TABLET BY MOUTH EVERY OTHER DAY FOR LYMPHEDEMA fldutzw-devyjtfjz-jdoycyz D3 (OYSTER SHELL CALCIUM-VITAMIN D) 500 mg-5 mcg (200 unit) per tablet Take 1 tablet by mouth two times a day with meals. ammonium lactate (LAC-HYDRIN) 12 % cream APPLY TOPICALLY TO AFFECTED AREA(S) ON LEGS AT BEDTIME multivitamin-ferrous fumarate-folic acid (CERTAVITE-ANTIOXIDANT) Take 1 tablet by mouth once daily. naproxen (NAPROSYN) 500 mg tablet TAKE ONE TABLET BY MOUTH TWICE DAILY NEEDED FOR PAIN/INFLAMMATION OF KNEE *TAKE WITH FOOD* *STAFF REORDER, 4 DAYS IN ADVANCE* levothyroxine (SYNTHROID) 100 mcg tablet take one tablet by mouth daily one hour before breakfast fluticasone (FLONASE) 50 mcg/actuation nasal spray INSTILL 2 SPRAYS IN EACH NOSTRIL DAILY Udooi-3-QRR-EPA-Fish Oil 1,000 mg (120 mg-180 mg) cap TAKE ONE CAPSULE BY MOUTH DAILY budesonide-formoterol (SYMBICORT) 160-4.5 mcg/actuation inhaler INHALE 2 PUFFS BY MOUTH TWICE DAILY ( INSTRUCTED) *SHAKE WELL nystatin (MYCOSTATIN) powder APPLY TOPICALLY TWICE DAILY TO AFFECTED AREA(S) ON ABDOMINAL FOLDS *EXTERNAL USE ONLY* potassium chloride ER (KLOR-CON M10) 10 mEq tablet TAKE ONE TABLET BY MOUTH EVERY OTHER DAY ( WITH BREAKFAST) ON DAYS WHEN YOU TAKE LASIX (FUROSEMIDE) EPINEPHrine (EPIPEN) 0.3 mg/0.3 mL auto-injector INJECT 1 PEN INTO LATERAL THIGH DIRECTED FOR ALLERGIC REACTIONS TO BEE/WASP STINGS MAY REPEAT IN 5-15 MINUTES IF SYMPTOMS PERSIST * *STAFF REORDER, 4 DAYS IN ADVANCE* acetaminophen (TYLENOL EXTRA STRENGTH) 500 mg tablet Take 2 tablets by mouth every 8 hours as needed for pain (For knee pain). IRAIDA 0.35 mg tablet Desogestrel-Ethinyl Estradiol (APRI) 0.15-0.03 mg per tablet Take 1 tablet by mouth once daily. diphenhydrAMINE (BENADRYL) 25 mg tablet Take 1 tablet by mouth every 6 hours as needed. cetirizine (ZYRTEC) 10 mg tablet Take 1 tablet by mouth once daily. clotrimazole (LOTRIMIN) 1 % cream APPLY TOPICALLY TO AFFECTED AREA(S) ON BILATERAL GROIN TWICE DAILY MEDICAL SUPPLY Lymphedema massage therapy Gauze Bandage 2 X 2 bndg Apply 1 application to affected area twice daily. COMPOUNDED PRESCRIPTION 1 Each once daily. Custom 20-30mmHg knee high compression stockings. Dx: Recurrent cellulitis legs and morbid obesity.Lymph Edema 8am for 2 pairs per year COMPOUNDED PRESCRIPTION Pt's body checks to be completed once weekly during the day. COMPOUNDED PRESCRIPTION Weight check q Sun at 8pm and q Fri at 4pm Dx:Q87. (more content not included)... [facility] 02-28-2023 Note HNO ID: [id number] Author: Teresa Yeung APRN.MANAGING DIRECTOR ATLAS Service: ? Author Type: Nurse Practitioner Type: Progress Notes Filed: 02/28/2023 2:10 PM Note Text: SUBJECTIVE Jose Abdul is a 42 year old female here today for acute concern. Chief Complaint Patient presents with: irriatated spot near vulva HPI Jose Abdul is a 42 year old female. Here today, accompanied by a care transition coordinator. Concerns of an irritated spot near her vulva. Some burning with wiping after going to the restroom. Some spots of bleeding after wiping. Looks like a pimple per nursing staff. Saw Yazan Can for this once before and was given a pill and a lotion for this. Her medications were reviewed today and her list is now up to date. Medications Current Outpatient Medications Medication Sig clotrimazole (LOTRIMIN) 1 % cream APPLY TOPICALLY TO AFFECTED AREA(S) ON BILATERAL GROIN TWICE DAILY albuterol HFA (VENTOLIN HFA) 90 mcg/actuation inhaler Inhale 2 Puffs as instructed every 4 hours as needed for wheezing/shortness of breath. furosemide (LASIX) 20 mg tablet TAKE ONE TABLET BY MOUTH EVERY OTHER DAY FOR LYMPHEDEMA khuvmeo-fakncfern-krlzcej D3 (OYSTER SHELL CALCIUM-VITAMIN D) 500 mg-5 mcg (200 unit) per tablet Take 1 tablet by mouth two times a day with meals. ammonium lactate (LAC-HYDRIN) 12 % cream APPLY TOPICALLY TO AFFECTED AREA(S) ON LEGS AT BEDTIME multivitamin-ferrous fumarate-folic acid (CERTAVITE-ANTIOXIDANT) Take 1 tablet by mouth once daily. naproxen (NAPROSYN) 500 mg tablet TAKE ONE TABLET BY MOUTH TWICE DAILY NEEDED FOR PAIN/INFLAMMATION OF KNEE *TAKE WITH FOOD* *STAFF REORDER, 4 DAYS IN ADVANCE* levothyroxine (SYNTHROID) 100 mcg tablet take one tablet by mouth daily one hour before breakfast fluticasone (FLONASE) 50 mcg/actuation nasal spray INSTILL 2 SPRAYS IN EACH NOSTRIL DAILY Wztxs-3-YAN-EPA-Fish Oil 1,000 mg (120 mg-180 mg) cap TAKE ONE CAPSULE BY MOUTH DAILY budesonide-formoterol (SYMBICORT) 160-4.5 mcg/actuation inhaler INHALE 2 PUFFS BY MOUTH TWICE DAILY ( INSTRUCTED) *SHAKE WELL nystatin (MYCOSTATIN) powder APPLY TOPICALLY TWICE DAILY TO AFFECTED AREA(S) ON ABDOMINAL FOLDS *EXTERNAL USE ONLY* potassium chloride ER (KLOR-CON M10) 10 mEq tablet TAKE ONE TABLET BY MOUTH EVERY OTHER DAY ( WITH BREAKFAST) ON DAYS WHEN YOU TAKE LASIX (FUROSEMIDE) EPINEPHrine (EPIPEN) 0.3 mg/0.3 mL auto-injector INJECT 1 PEN INTO LATERAL THIGH DIRECTED FOR ALLERGIC REACTIONS TO BEE/WASP STINGS MAY REPEAT IN 5-15 MINUTES IF SYMPTOMS PERSIST * *STAFF REORDER, 4 DAYS IN ADVANCE* acetaminophen (TYLENOL EXTRA STRENGTH) 500 mg tablet Take 2 tablets by mouth every 8 hours as needed for pain (For knee pain). IRAIDA 0.35 mg tablet Desogestrel-Ethinyl Estradiol (APRI) 0.15-0.03 mg per tablet Take 1 tablet by mouth once daily. diphenhydrAMINE (BENADRYL) 25 mg tablet Take 1 tablet by mouth every 6 hours as needed. cetirizine (ZYRTEC) 10 mg tablet Take 1 tablet by mouth once daily. sulfamethoxazole-trimethoprim (BACTRIM DS) 800-160 mg per tablet Take 1 tablet by mouth two times a day for 7 days. MEDICAL SUPPLY Lymphedema massage therapy Gauze Bandage 2 X 2 bndg Apply 1 application to affected area twice daily. COMPOUNDED PRESCRIPTION 1 Each once daily. Custom 20-30mmHg knee high compression stockings. Dx: Recurrent cellulitis legs and morbid obesity.Lymph Edema 8am for 2 pairs per year COMPOUNDED PRESCRIPTION Pt's body checks to be completed once weekly during the day. COMPOUNDED PRESCRIPTION Weight check q Sun at 8pm and q Fri at 4pm Dx:Q87.1 (Patient not taking: No sig reported) No current facility-administered medications for this visit. 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 Bmi 45.0-49.9, Adult ([facility]) - 02/09/2015 Venous Insufficiency (Chronic) (Peripheral) - 12/14/2014 Acquired Hypothyroidism - 12/14/2014 Obstructive Sleep Apnea Syndrome - 12/14/2014 Comment: Uses her cpap at night daily Vitamin D Deficiency - 11/05/2011 Mild Intermittent Asthma Without Complication Comment: Other Lung Diseases NEC Allergic Rhinitis Comment: Allergic rhinitis 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 When she goes to we will see hospital she has a multi disciplinary care team that works with her. It includes a dietitian who works with her weight and her calorie restriction. She does use her sleep machine regularly. Social History Tobacco Use Smoking status: Never Smokeless tobacco: Never Substance Use Topics Alcohol use: No Drug use: No Revi (more content not included)... [facility] 01-20-2023 Miscellaneous Notes Patient has been identified by name and date of : Yes Patient phones for refill(s): Requested Prescriptions Pending Prescriptions Disp Refills qodaukz-bbjuttqou-zsvpegn D3 (OYSTER SHELL CALCIUM-VITAMIN D) 500 mg-5 mcg (200 unit) per tablet 62 tablet 5 Sig: Take 1 tablet by mouth two times a day with meals. Date of last office visit in primary care: 10/23/2022 Date of next office visit in primary care: 04/25/2023 Last 2 Encounter Wt Readings: Date: Wt: 10/23/2022 111.1 kg (245 lb) 07/01/2022 117 kg (258 lb) Previous labs/tests for medication: Not applicable Please advise. Thank you. Mackenzie Elmore LPN. Patient has been identified by name and date of : Yes Requested Prescriptions Pending Prescriptions Disp Refills kivlgdy-vhsxublvf-zkkfinw D3 (OYSTER SHELL CALCIUM-VITAMIN D) 500 mg-5 mcg (200 unit) per tablet 62 tablet 5 Sig: Take 1 tablet by mouth two times a day with meals. RX INSTRUCTIONS: Patient aware RX will be sent to pharmacy. No need to notify patient. Aaliyah Schofield Pss documented in this encounter [facility] 12-12-2022 Miscellaneous Notes Patient has been identified by name and date of : Yes Patient phones for refill(s): Requested Prescriptions Pending Prescriptions Disp Refills ammonium lactate (LAC-HYDRIN) 12 % cream 280 g 10 Sig: APPLY TOPICALLY TO AFFECTED AREA(S) ON LEGS AT BEDTIME Date of last office visit in primary care: 10/23/2022 6 month follow-up: 04/25/2023 Last 2 Encounter Wt Readings: Date: Wt: 10/23/2022 111.1 kg (245 lb) 07/01/2022 117 kg (258 lb) Previous labs/tests for medication: Not applicable Please advise. Thank you. Mackenzie Elmore LPN Patient has been identified by name and date of : Yes Last office visit in this department: 10/23/2022 RX INSTRUCTIONS: Patient aware RX will be sent to pharmacy. No need to notify patient. Patient phones requesting refills as follows: Requested Prescriptions Pending Prescriptions Disp Refills ammonium lactate (LAC-HYDRIN) 12 % cream 280 g 10 Sig: APPLY TOPICALLY TO AFFECTED AREA(S) ON LEGS AT BEDTIME Please review and advise. 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 [facility] sends packed meals home with her.Food Seeking Behavior: yes, food locked up and monitoredFood Access Secured: yesDIET HISTORY AND DAILY NUTRITIONAL INTAKE:- Dietary Restrictions: high kcals- Vitamin/Mineral/Supplements: MV w/iron- Feeding Route: all PO intake- Enteral Feedings: none- Kcal Counting: goal is 800 daily 24 hr Diet Recall: planned menus but unable to elaborate. States similar to last year- Location of Meals: kitchenDaily Activities: light walkingAnthropometrics:- Weight: 109 kg- Height: 143 cm- IBW/BMI: 205 %/above IBW- Weight Velocity: 4 lb gain in 12 months- BMI: 53Classifications and Assessment of Obesity- Class III: BMI >140% or BMI >40Prader-Willi Syndrome Energy Requirements: (Height: 143 cm)- Wgt Speeder Reduction: 7 kcals/cm height = 800-906 kcals/faster wgt lossEst. Daily DRI Nutrition/Disease Reference Point/Standard Needs:- FLUID Needs: 3270 mL- ENERGY Needs: 900 kcals daily = 7 kcals/cm height = 800-906 kcals/faster wgt loss- DRI PROTEIN Needs: 45 gramsAdequate Nutrient Intake/Growth and Assessment Compared to Standards/Needs:Meeting intake compared to needs by >100%, pt continually working on goals by next nutrition reassessment as outlined in the Nutrition Plan of Care Process/Disease Standards per age/disease processes standard needsNutrition-Focused Physical and Visual Exam Assessment:Via real-time video pt appears to be well nourished and fat stores, muscle mass, fluid balance and macro/micronutrients, were normal appearing, with no signs of malnutrition during this exam. Patient does not demonstrate evidence of malnutrition based on AND/ASPEN criteria. Physical exam was collaborated with attending MD in clinic with pt.Growth Assessment, Intake and Malnutrition Indicators:- Calorie Intake: exceeding goal by >200%Growth and Intake Assessment Summary Compared to Standards:Pt is exceeding individual growth/weight standards/goals compared to personalized and standard reference points set by ASPEN/AND/WHO/GMDI/Current Disease Specific Literature. Growth parameters/goals may need adjusted for clinical dx/condition. Pts daily nutritional intake is exceeding pts daily nutritional needs with adjustments are being made and monitored.PES/DX Statement: Excessive energy intake related to PWS as evidenced by genetic testingNUTRITION ASSESSMENTPt is a 42yo female with know PWS. Pt has [id number] since last year. May be worth exploring a therapeutic exercise protein if pt would participate.Nutrition Status: High nutritional risk related to obesity health complications. RD will continue to monitor, evaluate and reassess nutritional status as needed. Nutrition Plan of Care was discussed with the teamNUTRITION INTERVENTION AND PLAN:- Limit daily calories: 900- Diet Principals: higher protein, carb control, calorie restriction- Protein: 45 grams protein and 100 grams Carbs daily- Fluids: 106 ounces daily- Continue Complete Multi-Vitamins with iron daily (no gummy)- Continue 1000 IU Vitamin D daily and 500 mg Calcium, twice daily- Continue to keep a daily food log to count calories- Increase Physical Activity to 60 mins daily (15 mins/4 times daily) with resistance training- Fiber Goal: 25 grams daily- Check weight at home weekly, record and report to dietitian- Send copies of [facility] Food Menus and pts actual % of intake for 3-5 daysContact the dietitian with any questions or concerns with diet Follow up in Prader-Willi Clinic in 12 months or when recommended by PWS TeamNUTRITION MONITORING, EVALUATION AND GOALS- Rate of wgt gain or wgt loss- Nutrition related clinical history with intake compared to needs- Evaluate anthropometric measures and z-scores with previous status and reference standards- Biochemical data, medical tests and procedure findings- Nutrition Related malnutrition indicators and NFPE statusAfter Visit Summary: all patient/families questions were answered; plan, goals and follow-up were discussed and agreed upon with care/treatment team and patient/family.Dietitian Follow-up: dietitian will continue to follow and reassess as needed or nkafkgtlzLruq-sa-Jany Time and Units: Time: 30 minutes/Units: 2Kcarmel Ly, MS, RD, LDN l Sr. Genetics Dietitian l Clinical Dietitian, Advance Practice l l [facility]eticsGrand [facility] HospitalGen[facility] Dietitian's Office: ; ; Email: [email or web address] tics/Scheduling: ; ; Urgent Doctor On-Call: [phone] Tequila Vinson. [facility] [address] [address] [place] Provider: Marisol Mohamud MD. [id number] Work Phone: 10-25-2022 Miscellaneous Notes In review of chart, patient was seen in office 10/23/22 by Keren Kaplan. Closing encounter as nothing further needed at this time. ANUPAMA Lira Left message for return call Please see how patient is doing? If asymptomatic, can just continue with every other day. Thank you Elsie Kaplan APRN.MANAGING DIRECTOR ATLAS Anali calling back to check status. Routing to [facility] due to medication issues. Pamela Singh LPN Staff member eneida Martell, dose of Lasix 20mg & Potassium 10 mEq today. Patient is to get medication every other day, it is one day early. Patient went to [facility] today, should be home within next 30 minutes, Prison has not receive a call re: Patient today. Please review & advise. Mackenzie Elmore LPN documented in this encounter [facility] 10-23-2022 History of Present illness Narrative CC: Patient presents with: Recheck: 3 month follow up HPI Jose Abdul is a 42 year old female who presents today for routine follow up. She has Prader-Willi syndrome and once of her caregivers is with her in appointment. Both patient and caregiver deny and concerns or changes at this time. Hypothyroidism: Takes medication as prescribed. Denies any fatigue or abnormal change in weight. Asthma: well controlled on symbicort. States she never has to use her emergency inhaler. Denies cough, wheezing, shortness of breath, nighttime symptoms, or recent exacerbation. DACIA: Reports using her cpap every night and has been slowly increasing her tolerance and usage time and is up to 2 hours. Denies any daytime fatigue. Lymphedema to BLE: Takes lasix every other day for this and has wraps for legs she wears daily. Denies any increase in edema, shortness of breath, chest pain, or palpitations. REVIEW OF SYSTEMS General: no fevers, no chills, no night sweats, no recurrent infections, no change in appetite, no change in energy, and no significant changes in weight Respiratory: no cough, no wheezing, no shortness of breath, no hemoptysis Cardiovascular: no chest pain, no chest pressure, no palpitations, GI: No nausea, vomiting, or diarrhea Endocrine: no fatigue, no weight gain, no weight loss, no polyuria, no polyphagia, and no polydipsia Neurologic: No headache, weakness, numbness, tingling, dizziness, memory loss, syncope. 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 naproxen (NAPROSYN) 500 mg tablet TAKE ONE TABLET BY MOUTH TWICE DAILY NEEDED FOR PAIN/INFLAMMATION OF KNEE *TAKE WITH FOOD* *STAFF REORDER, 4 DAYS IN ADVANCE* levothyroxine (SYNTHROID) 100 mcg tablet take one tablet by mouth daily one hour before breakfast fluticasone (FLONASE) 50 mcg/actuation nasal spray INSTILL 2 SPRAYS IN EACH NOSTRIL DAILY Trcai-8-YOH-EPA-Fish Oil 1,000 mg (120 mg-180 mg) cap TAKE ONE CAPSULE BY MOUTH DAILY budesonide-formoterol (SYMBICORT) 160-4.5 mcg/actuation inhaler INHALE 2 PUFFS BY MOUTH TWICE DAILY ( INSTRUCTED) *SHAKE WELL nystatin (MYCOSTATIN) powder APPLY TOPICALLY TWICE DAILY TO AFFECTED AREA(S) ON ABDOMINAL FOLDS *EXTERNAL USE ONLY* potassium chloride ER (KLOR-CON M10) 10 mEq tablet TAKE ONE TABLET BY MOUTH EVERY OTHER DAY ( WITH BREAKFAST) ON DAYS WHEN YOU TAKE LASIX (FUROSEMIDE) EPINEPHrine (EPIPEN) 0.3 mg/0.3 mL auto-injector INJECT 1 PEN INTO LATERAL THIGH DIRECTED FOR ALLERGIC REACTIONS TO BEE/WASP STINGS MAY REPEAT IN 5-15 MINUTES IF SYMPTOMS PERSIST * *STAFF REORDER, 4 DAYS IN ADVANCE* benzonatate (TESSALON PERLES) 100 mg capsule Take 1 capsule by mouth at bedtime as needed for cough. acetaminophen (TYLENOL EXTRA STRENGTH) 500 mg tablet Take 2 tablets by mouth every 8 hours as needed for pain (For knee pain). furosemide (LASIX) 20 mg tablet TAKE ONE TABLET BY MOUTH EVERY OTHER DAY potassium chloride (K-TAB) 10 mEq tablet Take one tablet on days when you are taking lasix. FISH OIL 340-1,000 mg cap TAKE ONE CAPSULE BY MOUTH DAILY MEDICAL SUPPLY Lymphedema massage therapy IRAIDA 0.35 mg tablet albuterol HFA (VENTOLIN HFA) 90 mcg/actuation inhaler Inhale 2 Puffs as instructed every 4 hours as needed for wheezing/shortness of breath. clotrimazole (LOTRIMIN, CLOTRIM) 1 % cream APPLY TOPICALLY TO AFFECTED AREA(S) ON BILATERAL GROIN TWICE DAILY ammonium lactate (LAC-HYDRIN) 12 % cream APPLY TOPICALLY TO AFFECTED AREA(S) ON LEGS AT BEDTIME fcjtwrs-pehpkunqs-dezstvj D3 (OYSTER SHELL CALCIUM-VITAMIN D) 500 mg(1,250mg) -200 unit per tablet Take 1 tablet by mouth twice daily with meals. Gauze Bandage 2 X 2 bndg Apply 1 application to affected area twice daily. Desogestrel-Ethinyl Estradiol (APRI) 0.15-0.03 mg per tablet Take 1 tablet by mouth once daily. diphenhydrAMINE (BENADRYL) 25 mg tablet Take 1 tablet by mouth every 6 hours as needed. cetirizine (ZYRTEC) 10 mg tablet Take 1 tablet by mouth once daily. COMPOUNDED PRESCRIPTION 1 Each once daily. Custom 20-30mmHg knee high compression stockings. Dx: Recurrent cellulitis legs and morbid obesity.Lymph Edema 8am for 2 pairs per year COMPOUNDED PRESCRIPTION Pt's body checks to be completed once weekly during the day. COMPOUNDED PRESCRIPTION Weight check q Sun at 8pm and q Fri at 4pm Dx:Q87.1 (Patient not taking: No sig reported) FAMILY HISTORY Problem Relation Age of Onset Diabetes Maternal Grandmother Social History Tobacco Use Smoking status: Never Smokeless tobacco: Never Substance Use Topics Alcohol use: No Drug use: No PHYSICAL EXAM BP 128/78 Pulse 62 Resp 16 Wt 111.1 kg (245 lb) LMP 05/13/2007 SpO2 99% BMI 56.94 kg/m General Appearance: well appearing, in no acute distress, alert Skin: Skin color, texture, turgor normal for age; Eyes: conjunctiva pink and moist, no icterus, sclera white, non-injected Lungs: Lungs clear to auscultation. No wheezing, rhonchi, rales. Heart: RRR without murmur, gallop, or rubs. No ectopy BLE Extremities: large amount of lymphedema to BLE. Wraps in place. Health maintenance reviewed with patient: HEPATITIS B(1 of 3 - 3-dose series) Never done SPIROMETRY Never done PNEUMOCOCCAL(2 - PCV) due on 04/11/2007 MAMMOGRAM Never done INFLUENZA(1) due on 11/08/2022 ANNUAL PCP TEAM CHRONIC DISEASE VISIT due on 07/02/2023 DTAP,TDAP,TD(2 - Td or Tdap) due on 01/09/2025 PAP TESTING due on 05/22/2026 HPV TESTING due on 05/22/2026 DEPRESSION ASSESSMENT Completed HEPATITIS C SCREENING Completed HIV SCREENING Completed COVID-19 VACCINE Completed HPV VACCINE Aged Out DATA REVIEWED: Most recent labs ASSESSMENT/PLAN: 1. Lymphedema - ICD9: 457.1, ICD10: I89.0 (primary diagnosis) - controlled at this time, continue Lasix - BMP already ordered, get drawn after appointment. 2. Obstructive sleep apnea syndrome - ICD9: 327.23, ICD10: G47.33 - using her cpap and slowly increasing, getting some benefit of energy during day from current usage 3. Acquired hypothyroidism - ICD9: 244.9, ICD10: E03.9 - Instructed patient on importance of taking on an empty stomach either first thing in the morning or at bedtime. - asymptomatic, get TSH as ordered. 4. Mild intermittent asthma without complication - ICD9: 493.90, ICD10: J45.20 - Mild intermittent asthma stable - Continue current medications - Avoidance of triggers recommended Follow up in 6 months or earlier if any new concerns or changes. Prescription instructions reviewed with patient as applicable. Potential red flag symptoms discussed with the patient. Reviewed appropriate action plan to take if red flag symptoms occur. Patient agreeable to treatment plan. Elsie Kaplan APRN.CNP documented in this encounter [facility] 10-23-2022 Miscellaneous Notes Patient has been identified by name and date of : Pharmacy phones for refill(s): Requested Prescriptions Pending Prescriptions Disp Refills multivitamin-ferrous fumarate-folic acid (CERTAVITE-ANTIOXIDANT) 31 tablet 10 Sig: Take 1 tablet by mouth once daily. Date of last office visit in primary care: 07/01/2022, has appt 10/23/2022 Last 2 Encounter Wt Readings: Date: Wt: 07/01/2022 117 kg (258 lb) 06/27/2022 113.6 kg (250 lb 6.4 oz) Previous labs/tests for medication: Not applicable Please advise. Thank you. Candelaria Ball LPN documented in this encounter [facility] 10-10-2022 Miscellaneous Notes Clarence Hurtado with [facility] in [place] called in to verify that Pt was still under providers care. documented in this encounter [facility] 08-26-2022 Miscellaneous Notes Last office visit: 07/01/22 Next appointment scheduled: 10/02/22 Patient phones requesting refills as follows: Requested Prescriptions Pending Prescriptions Disp Refills naproxen (NAPROSYN) 500 mg tablet 31 tablet 10 Isela Leyva LPN Patient has been identified by name and date of : Yes Requested Prescriptions Pending Prescriptions Disp Refills naproxen (NAPROSYN) 500 mg tablet 31 tablet 10 RX INSTRUCTIONS: Patient aware RX will be sent to pharmacy. No need to notify patient. Usha Zuniga documented in this encounter [facility] 08-07-2022 Miscellaneous Notes Patient has been identified by name and date of : No Patient phones for refill(s): Requested Prescriptions Pending Prescriptions Disp Refills fluticasone (FLONASE) 50 mcg/actuation nasal spray [Pharmacy Med Name: Fluticasone Propionate 50 MCG/ACT Suspension] 16 g 10 Sig: INSTILL 2 SPRAYS IN EACH NOSTRIL DAILY Fhjen-8-TJN-EPA-Fish Oil 1,000 mg (120 mg-180 mg) cap [Pharmacy Med Name: [place]-3 1000 MG Capsule] 31 capsule 10 Sig: TAKE ONE CAPSULE BY MOUTH DAILY budesonide-formoterol (SYMBICORT) 160-4.5 mcg/actuation inhaler [Pharmacy Med Name: Budesonide-Formoterol Fumarate 160-4.5 MCG/ACT Aerosol] 10.2 g 10 Sig: INHALE 2 PUFFS BY MOUTH TWICE DAILY ( INSTRUCTED) *DEACON NAZARIO Date of last office visit in primary care: 07/01/22 Last 2 Encounter Wt Readings: Date: Wt: 07/01/2022 117 kg (258 lb) 06/27/2022 113.6 kg (250 lb 6.4 oz) Previous labs/tests for medication: Not applicable Please advise. Thank you. Pascale Lorenzo LPN documented in this encounter [facility] 07-18-2022 Miscellaneous Notes Patient has been identified by name and date of : Yes Last office visit in this department: Visit date not found RX INSTRUCTIONS: Patient aware RX will be sent to pharmacy. No need to notify patient. Patient phones requesting refills as follows: Requested Prescriptions Pending Prescriptions Disp Refills nystatin (MYCOSTATIN) powder 60 g 11 Sig: APPLY TOPICALLY TWICE DAILY TO AFFECTED AREA(S) ON ABDOMINAL FOLDS *EXTERNAL USE ONLY* Please review and advise. Pepper Royal documented in this encounter [facility] 06-06-2022 Miscellaneous Notes Medication or Treatment Administration Consent form signed by Dr. Thakur. Joniacatscott Briones the warehouse engineer notified form is ready for pickup. Form taken to Medical records. documented in this encounter [facility] 06-04-2022 Miscellaneous Notes Patient has been identified by name and date of : Yes Patient phones for refill(s): Requested Prescriptions Pending Prescriptions Disp Refills potassium chloride ER (KLOR-CON M10) 10 mEq tablet [Pharmacy Med Name: Potassium Chloride Magda ER 10 MEQ Tablet extended release] 16 tablet 10 Sig: TAKE ONE TABLET BY MOUTH EVERY OTHER DAY ( WITH BREAKFAST) ON DAYS WHEN YOU TAKE LASIX (FUROSEMIDE) Date of last office visit in primary care: 05/02/2022 2 month follow-up: 07/01/2022 Last 2 Encounter Wt Readings: Date: Wt: 05/02/2022 111.6 kg (246 lb) 03/21/2022 112.9 kg (249 lb) Previous labs/tests for medication: Potassium: No components found for: POT Please advise. Thank you. Mackenzie Elmore LPN documented in this encounter [facility] 05-16-2022 Miscellaneous Notes Last Office Visit: 05/02/2022 Future Office Visit: 07/01/2022 Requested Prescriptions Pending Prescriptions Disp Refills EPINEPHrine (EPIPEN) 0.3 mg/0.3 mL auto-injector [Pharmacy Med Name: EPINEPHrine 0.3 MG/0.3ML Solution auto-injector] 2 Each 10 Sig: INJECT 1 PEN INTO LATERAL THIGH DIRECTED FOR ALLERGIC REACTIONS TO BEE/WASP STINGS MAY REPEAT IN 5-15 MINUTES IF SYMPTOMS PERSIST * *STAFF REORDER, 4 DAYS IN ADVANCE* Date of Last Labs: 12/13/2021 documented in this encounter [facility] 05-02-2022 History of Present illness Narrative Reason for Visit Patient presents with: Physical Jose Abdul is a 41 year old female who presents here today for CPE. Health Maintenance HEPATITIS B(1 of 3 - 3-dose series) SPIROMETRY PNEUMOCOCCAL(2 - PCV) INFLUENZA(1) DEPRESSION ASSESSMENT HPI Jayshree is a very pleasant 41-year-old woman with past medical history of prior syndrome, hypothyroidism, hyper coronary syndrome, lymphedema of the extremities, sleep apnea, mild intermittent asthma, venous insufficiency, and history of DVT, morbid obesity, who is here for an annual physical Patient has moved into a duplex near by her mother in [place] a couple years ago and is actually much happier than before. She likes it because it is new , nearer to her mother, the concrete part does not make a difference to her. Patient has lost 4 pounds since the last visit. She has been enjoying doing some cardio by walking or on the treadmill and enjoying upper arm exercises and strengthening and weight. At this time she has not had any blood work and will not needed but she will need blood work for when she comes in next time Waiting for the vascular appointment and, stopped the eliquis which had taken for DVT 3 months ago, lost 9 pounds, not as active as before. She may be eating a little better than before,. And has lost around 3 pounds she loves crab and shrimp. Rigo gray: Patient sees Dr Darya Curry at for her prader villie syndrome. He said that a video chat is good enough for the patient and they do not have to drive up there as she is doing pretty well. She had cbc, tsh, hba1c, renal function, vit d , UA. And other tests. We will have to get a release for those records. Patient noted today she did not get her blood work done as yet,The new doc does not believe she has lymphedema. Taking medication for asthma- she takes the symbicort inhaler on a daily basis. Her symptoms are stable and under control. Has the rescue as needed. Has not use the rescue inhaler in and for a while. Hypothyroidism. She is doing well on her current dose of Synthroid. Denies fatigue, cold intolerance and swelling in feet. TSH recently checked and normal. Bp is normal today. Dacia: she used to use er sleep machine at least 5/6 hours a night, regularly in the past but she has dramatically decreased it. She does 10 mgs of walking on the treadmill and also does arm exercises. Uses her velcro compression as much as possible. No problem-specific Assessment & Plan notes found for this encounter. 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 Pertinent Lab/Diagnostic Studies are reviewed and discussed today Current Outpatient Medications: benzonatate (TESSALON PERLES) 100 mg capsule acetaminophen (TYLENOL EXTRA STRENGTH) 500 mg tablet furosemide (LASIX) 20 mg tablet potassium chloride (K-TAB) 10 mEq tablet levothyroxine (SYNTHROID) 100 mcg tablet fluticasone (FLONASE) 50 mcg/actuation nasal spray FISH OIL 340-1,000 mg cap budesonide-formoterol (SYMBICORT) 160-4.5 mcg/actuation inhaler MEDICAL SUPPLY IRAIDA 0.35 mg tablet albuterol HFA (VENTOLIN HFA) 90 mcg/actuation inhaler naproxen (NAPROSYN) 500 mg tablet EPINEPHrine (EPIPEN) 0.3 mg/0.3 mL auto-injector clotrimazole (LOTRIMIN, CLOTRIM) 1 % cream ammonium lactate (LAC-HYDRIN) 12 % cream omdtnxq-eodzadqbp-hncfivh D3 (OYSTER SHELL CALCIUM-VITAMIN D) 500 mg(1,250mg) -200 unit per tablet CERTAVITE-ANTIOXIDANT Gauze Bandage 2 X 2 bndg Desogestrel-Ethinyl Estradiol (APRI) 0.15-0.03 mg per tablet nystatin (MYCOSTATIN) powder diphenhydrAMINE (BENADRYL) 25 mg tablet cetirizine (ZYRTEC) 10 mg tablet COMPOUNDED PRESCRIPTION COMPOUNDED PRESCRIPTION COMPOUNDED PRESCRIPTION Current Facility-Administered Medications: perflutren lipid microspheres 1.3 mL in NaCl (PF) 0.9% 10 mL injection (DEFINITY) sodium chloride 0.9 % (flush) 10 mL (BD POSIFLUSH) Review of Systems CONSTITUTIONAL: No fevers, chills, nightsweats, unintended weight loss HEENT: Denies frequent or severe heaches, nasal congestion/sinus symptoms, problematic allergy problems. EYES: No diplopia or blurry vision. CARDIOVASCULAR: No chest pain, dyspnea, palpitations, orthopnea, PND, ankle edema. PULM: No dyspnea, unexplained cough. GI: No dysphagia/odynophagia, problematic reflux, constipation, diarrhea, changes in stool habits, hematochezia, melena. : No new urinary complaints, including dysuria, gross hematuria or pyuria. NEURO: No new balance problems, peripheral weakness/paresthesias or numbness of concern. MUSC-SKEL: No new joint pain, swelling, or erythema. PSY: No concerns regarding depression, anxiety or panic. INTEGUMENTARY: No new skin changes (rash, new or changing mole, new growth) Physical Exam BP 112/68 Pulse (!) 53 Resp 16 Ht 142.2 cm (4' 7.98 ) Wt 111.6 kg (246 lb) LMP 05/13/2007 SpO2 96% BMI 55.18 kg/m General appearance: Well appearing, alert, in no acute distress, well-hydrated, well nourished. Skin: Skin color, texture, turgor normal, no suspicious rashes or lesions Head: Normocephalic, no masses, lesions, tenderness or abnormalities Eyes: Anicteric sclera. Pupils are equally round and reactive to light. Extraocular movements are intact. Ears: External ears normal, canals clear Nose/Sinuses: Nares normal, septum midline, mucosa normal, no drainage or sinus tenderness Oropharynx: Lips, mucosa, and tongue normal, teeth and gums normal, oropharynx normal Neck: Supple, no adenopathy; thyroid symmetric, normal size, no bruits Back: Normal exam Lungs: Lungs clear to auscultation. No wheezing, rhonchi, rales Heart: RRR without murmur, gallop, or rubs. No ectopy Abdomen: Normal abdominal exam, Abdomen soft, non-tender. Bowel sounds normal. No masses, organomegaly Extremities: No deformities, edema, skin discoloration, clubbing or cyanosis. Good capillary refill. Musculoskeletal: No joint swelling, deformity, or tenderness Peripheral pulses: Normal Neuro: Gait normal. Reflexes normal and symmetric. Sensation grossly intact. ASSESSMENT/PLAN: 1. Annual physical exam - ICD9: V70.0, ICD10: Z00.00 (primary diagnosis) - Counseled on healthy diet and regular exercise - Calcium intake with supplements or by diet of 1000 mg/day for under 50, 0087-1873 mg/day for 50+ 2. Hypothalamic hypogonadism (HCC) - ICD9: 253.4, ICD10: E23.0 Stable - Eat well program 3. Prader-Willi syndrome - ICD9: 759.81, ICD10: Q87.11 4. Obstructive sleep apnea syndrome - ICD9: 327.23, ICD10: G47.33 Encouraged to use it more regularly 5. Mild intermittent asthma without complication - ICD9: 493.90, ICD10: J45.20 Stable 6. Acquired hypothyroidism - ICD9: 244.9, ICD10: E03.9 Stable 7. Lymphedema of left lower extremity - ICD9: 457.1, ICD10: I89.0 Encouraged to more consistently use her stockings Sherif Thakur MD documented in this encounter [facility] 03-21-2022 History of Present illness Narrative CC: Patient presents with: Knee Pain: B/L knee pain x 2 weeks HPI Jose Abdul is a 41 year old female who presents today for concerns of bilateral knee pain. Caregiver is with patient as she has a history of Prader Willi so not always able to give thorough history. Has had knee pain for a while Unable to identify if it is been weeks or months. Has difficulty getting up stairs or onto bus which her caregiver noticed last week. In looking at past records she does have intermittent history of this that she would take anti-inflammatories like naproxen. Patient has not taken any medications for this pain. Denies any injury, falling, weakness, redness, or feeling like legs are going to give out. Denies any change in size of legs from her chronic lymphedema. Per caregiver patient has been playing a lot of basketball without issue. Has also had a persistent non-productive cough for the past few weeks. Per caregiver it has improved but still noticeable at night. Patient reports a little bit of wheezing sensation but has no difficulty with exercise like basketball or difficulty sleeping at night. Denies fever chills, nasal drainage, any use of her albuterol inhaler in months, or chest pain. REVIEW OF SYSTEMS General: no fevers, no chills, no night sweats, no recurrent infections, no change in appetite, no change in energy, and no significant changes in weight Respiratory: no cough, no wheezing, no shortness of breath, no hemoptysis Cardiovascular: no chest pain, no chest pressure, no palpitations, and no swelling Musculoskeletal: Negative for swelling, decreased ROM, back pain or muscle pain Neurologic: No headache, weakness, numbness, tingling, dizziness, syncope. 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 2to pulonary fibrosis Thrombophlebitis Unspecified intellectual disabilities mild Viral pneumonia, unspecified LLL PAST SURGICAL HISTORY Procedure Laterality Date NONE ALLERGIES Bees,Wasps [Other]; Dilantin [Phenytoin Sodium Extended]; and Mosquitoes [Other] MEDICATIONS furosemide (LASIX) 20 mg tablet^TAKE ONE TABLET BY MOUTH EVERY OTHER DAY^Disp: 16 tablet^Rfl: 10 potassium chloride (K-TAB) 10 mEq tablet^Take one tablet on days when you are taking lasix.^Disp: 45 tablet^Rfl: 2 levothyroxine (SYNTHROID) 100 mcg tablet^TAKE ONE TABLET BY MOUTH DAILY ONE HOUR BEFORE BREAKFAST^Disp: 31 tablet^Rfl: 10 fluticasone (FLONASE) 50 mcg/actuation nasal spray^INSTILL 2 SPRAYS IN EACH NOSTRIL DAILY^Disp: 16 g^Rfl: 10 FISH OIL 340-1,000 mg cap^TAKE ONE CAPSULE BY MOUTH DAILY^Disp: 31 capsule^Rfl: 10 budesonide-formoterol (SYMBICORT) 160-4.5 mcg/actuation inhaler^INHALE 2 PUFFS BY MOUTH TWICE DAILY ( INSTRUCTED) *SHAKE WELL^Disp: 10.2 g^Rfl: 10 MEDICAL SUPPLY^Lymphedema massage therapy^Disp: 1 Each^Rfl: 0 IRAIDA 0.35 mg tablet^^Disp: ^Rfl: albuterol HFA (VENTOLIN HFA) 90 mcg/actuation inhaler^Inhale 2 Puffs as instructed every 4 hours as needed for wheezing/shortness of breath.^Disp: 1 Each^Rfl: 3 naproxen (NAPROSYN) 500 mg tablet^TAKE ONE TABLET BY MOUTH TWICE DAILY NEEDED FOR PAIN/INFLAMMATION OF KNEE *TAKE WITH FOOD* *STAFF REORDER, 4 DAYS IN ADVANCE*^Disp: 31 tablet^Rfl: 10 EPINEPHrine (EPIPEN) 0.3 mg/0.3 mL auto-injector^INJECT 1 PEN INTO LATERAL THIGH DIRECTED FOR ALLERGIC REACTIONS TO BEE/WASP STINGS MAY REPEAT IN 5-15 MINUTES IF SYMPTOMS PERSIST * *STAFF REORDER, 4 DAYS IN ADVANCE*^Disp: 2 Each^Rfl: 10 clotrimazole (LOTRIMIN, CLOTRIM) 1 % cream^APPLY TOPICALLY TO AFFECTED AREA(S) ON BILATERAL GROIN TWICE DAILY^Disp: 30 g^Rfl: 10 ammonium lactate (LAC-HYDRIN) 12 % cream^APPLY TOPICALLY TO AFFECTED AREA(S) ON LEGS AT BEDTIME^Disp: 280 g^Rfl: 10 jvpipbf-znsyrcgkr-bhqoows D3 (OYSTER SHELL CALCIUM-VITAMIN D) 500 mg(1,250mg) -200 unit per tablet^Take 1 tablet by mouth twice daily with meals.^Disp: 62 tablet^Rfl: 5 CERTAVITE-ANTIOXIDANT^TAKE ONE TABLET BY MOUTH DAILY^Disp: 31 tablet^Rfl: 10 Gauze Bandage 2 X 2 bndg^Apply 1 application to affected area twice daily.^Disp: 25 Each^Rfl: 0 Desogestrel-Ethinyl Estradiol (APRI) 0.15-0.03 mg per tablet^Take 1 tablet by mouth once daily.^Disp: 28 tablet^Rfl: 11 nystatin (MYCOSTATIN) powder^APPLY TOPICALLY TWICE DAILY TO AFFECTED AREA(S) ON ABDOMINAL FOLDS *EXTERNAL USE ONLY*^Disp: 60 g^Rfl: 11 diphenhydrAMINE (BENADRYL) 25 mg tablet^Take 1 tablet by mouth every 6 hours as needed.^Disp: 48 tablet^Rfl: 0 cetirizine (ZYRTEC) 10 mg tablet^Take 1 tablet by mouth once daily.^Disp: 150 tablet^Rfl: 0 COMPOUNDED PRESCRIPTION^1 Each once daily. Custom 20-30mmHg knee high compression stockings. Dx: Recurrent cellulitis legs and morbid obesity.Lymph Edema 8am for 2 pairs per year^Disp: 4 Each^Rfl: 0 COMPOUNDED PRESCRIPTION^Pt's body checks to be completed once weekly during the day.^Disp: 1 Each^Rfl: 99 COMPOUNDED PRESCRIPTION^Weight check q Sun at 8pm and q Fri at 4pm Dx:Q87.1^Disp: 1 Each^Rfl: 99 (Patient not taking: Reported on 02/15/2021 ) FAMILY HISTORY Problem Relation Age of Onset Diabetes Maternal Grandmother Social History Tobacco Use Smoking status: Never Smokeless tobacco: Never Substance Use Topics Alcohol use: No Drug use: No PHYSICAL EXAM BP 118/72 Pulse 60 Temp 36.8 C (98.2 F) (Temporal) Resp 16 Wt 112.9 kg (249 lb) LMP 05/13/2007 SpO2 99% BMI 55.82 kg/m General Appearance: well appearing, in no acute distress, alert Skin: Skin color, texture, turgor normal for age; Eyes: conjunctiva pink and moist, no icterus, sclera white, non-injected Ears: external ears normal to inspection and palpation, canals clear, Left tympanic membrane normal. , Right tympanic membrane normal Nose/sinus: No sinus tenderness, not fully evaluated as patient would not remove mask. Oropharynx not evaluated either because of refusal to remove mask. Neck: Thyroid normal size and symmetric without palpable nodules, No adenopathy Lymph nodes: No cervical lymphadenopathy and No supraclavicular lymphadenopathy Lungs: Lungs clear to auscultation. No wheezing, rhonchi, rales. Heart: RRR without murmur, gallop, or rubs. No ectopy Extremities: No deformities, edema, skin discoloration, clubbing or cyanosis. Good capillary refill. Musculoskeletal: No joint swelling, deformity, or tenderness. Patient unable to get onto table for thorough evaluation of knees as a result of height. No pain or deformity.. Gait is at patient baseline. Muscle strength normal. Health maintenance reviewed with patient: HEPATITIS B(1 of 3 - 3-dose series) Never done SPIROMETRY Never done PNEUMOCOCCAL(2 - PCV) due on 04/11/2007 INFLUENZA(1) due on 11/08/2021 DEPRESSION ASSESSMENT due on 03/10/2022 ANNUAL PCP TEAM CHRONIC DISEASE VISIT due on 01/29/2023 DTAP,TDAP,TD(2 - Td or Tdap) due on 01/09/2025 PAP TESTING due on 05/22/2026 HPV TESTING due on 05/22/2026 HEPATITIS C SCREENING Completed HIV SCREENING Completed COVID-19 VACCINE Completed DATA REVIEWED: No new labs ASSESSMENT/PLAN: 1. Bilateral chronic knee pain - ICD9: 719.46, 338.29, ICD10: M25.561, M25.562, G89.29 (primary diagnosis) - patient without issue with gait and able to be active and play basketball without concern. Patient to take tylenol as ordered and can take naproxen as previously ordered - if no improvement will need to return to physical therapy. 2. Acute cough - ICD9: 786.2, ICD10: R05.1 - improving, assessment normal - benzonatate as ordered - follow up if this does not continue to improve or begins to worsen - go to ER for shortness of breath, wheezing, chest pain, or any other urgent concern. Prescription instructions reviewed with patient as applicable. Potential red flag symptoms discussed with the patient. Reviewed appropriate action plan to take if red flag symptoms occur. Patient agreeable to treatment plan. Elsie Kaplan APRN.OBED documented in this encounter [facility] 02-05-2022 Miscellaneous Notes Patient has been identified by name and date of : Yes Patient phones for refill(s): Requested Prescriptions Pending Prescriptions Disp Refills furosemide (LASIX) 20 mg tablet [Pharmacy Med Name: Furosemide 20 MG Tablet] 16 tablet 10 Sig: TAKE ONE TABLET BY MOUTH EVERY OTHER DAY Date of last office visit in primary care: 01/29/2022 Last 2 Encounter Wt Readings: Date: Wt: 01/29/2022 110.7 kg (244 lb) 10/29/2021 109.8 kg (242 lb) Previous labs/tests for medication: Not applicable Please advise. Thank you. Pascale Lorenzo LPN documented in this encounter [facility] 01-29-2022 History of Present illness Narrative Reason for Visit Patient presents with: Recheck: 3 month Jose Abdul is a 41 year old female who presents here today for Above Complaints.. Health Maintenance HEPATITIS B(1 of 3 - 3-dose series) SPIROMETRY PNEUMOCOCCAL(2 - PCV) COVID-19 VACCINE(3 - Booster for Moderna series) DEPRESSION ASSESSMENT INFLUENZA(1) HPI Reviewed labs with patient. Her tsh, vit , hba1c , cbc , cmp are all normal. Mcv is elevated. Advised to take some vit b12. For her Prader Miguel A, she had an echo, which showed normal ef, normal diastolic dysfucntion and no valvular issues. Going to see her specialist in a couple days. Has been using new wraps on her legs and she needs help getting them on but once she has them on it works well for her edema. Weight has been stable, she is not eating much. Patient is using her sleep machine. 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 She has been using the symbicort inhaler regularly , no asthma flares at this point. HTN: Compliant with medications. Denies any chest pain, palpitations, or edema. No SOB. Doesn't check BP at home generally. Careful with diet to avoid salt, trying to eat more fruits and vegetables, exercises regularly. No problem-specific Assessment & Plan notes found for this encounter. 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 Pertinent Lab/Diagnostic Studies are reviewed and discussed today Current Outpatient Medications: potassium chloride (K-TAB) 10 mEq tablet levothyroxine (SYNTHROID) 100 mcg tablet fluticasone (FLONASE) 50 mcg/actuation nasal spray FISH OIL 340-1,000 mg cap budesonide-formoterol (SYMBICORT) 160-4.5 mcg/actuation inhaler MEDICAL SUPPLY IRAIDA 0.35 mg tablet albuterol HFA (VENTOLIN HFA) 90 mcg/actuation inhaler naproxen (NAPROSYN) 500 mg tablet EPINEPHrine (EPIPEN) 0.3 mg/0.3 mL auto-injector furosemide (LASIX) 20 mg tablet clotrimazole (LOTRIMIN, CLOTRIM) 1 % cream ammonium lactate (LAC-HYDRIN) 12 % cream edjoipc-ebckznmtn-ggzmylv D3 (OYSTER SHELL CALCIUM-VITAMIN D) 500 mg(1,250mg) -200 unit per tablet CERTAVITE-ANTIOXIDANT Gauze Bandage 2 X 2 bndg Desogestrel-Ethinyl Estradiol (APRI) 0.15-0.03 mg per tablet nystatin (MYCOSTATIN) powder diphenhydrAMINE (BENADRYL) 25 mg tablet cetirizine (ZYRTEC) 10 mg tablet COMPOUNDED PRESCRIPTION COMPOUNDED PRESCRIPTION COMPOUNDED PRESCRIPTION Current Facility-Administered Medications: perflutren lipid microspheres 1.3 mL in NaCl (PF) 0.9% 10 mL injection (DEFINITY) sodium chloride 0.9 % (flush) 10 mL (BD POSIFLUSH) Review of Systems CONSTITUTIONAL: No fevers, chills night sweats, unintended weight loss CARDIOVASCULAR: No chest pain, dyspnea, palpitations, orthopnea, PND, ankle edema. PULM: No dyspnea, unexplained cough. GI: No dysphagia/odynophagia, problematic reflux, constipation, diarrhea, changes in stool habits, hematochezia, melena. : No new urinary complaints, including dysuria, gross hematuria or pyuria. NEURO: No new balance problems, peripheral weakness/paresthesias or numbness of concern. Physical Exam BP 118/68 Pulse 66 Resp 16 Wt 110.7 kg (244 lb) LMP 05/13/2007 SpO2 96% BMI 54.70 kg/m General appearance: Well appearing, alert, in no acute distress, well nourished. Skin: Skin color, texture, turgor normal, no suspicious rashes or lesions Head: Normocephalic, no masses, lesions, tenderness or abnormalities Eyes: Anicteric sclera. Pupils are equally round and reactive to light. Extraocular movements are intact. Lungs: Lungs clear to auscultation. No wheezing, rhonchi, rales Heart: RRR without murmur, gallop, or rubs. Extremities: No deformities, edema, skin discoloration, clubbing or cyanosis. Good capillary refill. ASSESSMENT/PLAN: 1. Obstructive sleep apnea syndrome - ICD9: 327.23, ICD10: G47.33 (primary diagnosis) Cont the pap machine. 2. Encounter for immunization - ICD9: V03.89, ICD10: Z23 - PFIZER-BIONTECH COVID-19 BIVALENT BOOSTER VACCINE, AGE 12+ YR 3. Mild intermittent asthma without complication - ICD9: 493.90, ICD10: J45.20 Mild intermittent Asthma stable - Avoidance of triggers recommended 4. Acquired hypothyroidism - ICD9: 244.9, ICD10: E03.9 - Instructed patient on importance of taking on an empty stomach either first thing in the morning or at bedtime. 5. Lymphedema of right lower extremity - ICD9: 457.1, ICD10: I89.0 The patients lymphedema is normal. 6. Lymphedema of left lower extremity - ICD9: 457.1, ICD10: I89.0 The patients lymphedema is normal. 7. Sleep deprivation - ICD9: V69.4, ICD10: Z72.820 Sherif Thakur MD documented in this encounter [facility] 01-23-2022 Miscellaneous Notes Taken to medical records. Anali notified. Regan Neville Ma Patient caregiver Anali calling to check status of request for handicap placard rx renewal rx. Patient care transition coordinator Anali calling to check status of request. Anali (warehouse engineer) calls to request 2 handicap placards for patient. Anali will peanut picker in medical records if provider agrees. Pended. Eulalia Laureano, RN documented in this encounter [facility] 12-13-2021 Miscellaneous Notes Clarence Hurtado with [facility] calling to confirm PCP for patient. Information confirmed. Pepper Walsh RN documented in this encounter [facility] 11-29-2021 Miscellaneous Notes Anali, warehouse engineer notified. Talked to genetecist carrington - Please let patient know that she needs to give these labs in the next 3 weeks as per her US doc Below is discussion with the doctor , please do not discuss with patient Hba1c, lipid profile, tsh, free t4, vit d , need to be checked every year as she can develop osteoporosis. Had a couple echos- the patient had increased PAFT, in 2020- was increased in the range of mild Pul hypertension, obesity, sleep apnea. Consideration of obesity hypoventilation syndrome- needs cards- Dr. Mohamud from called asking to speak with PCP. Please call him at [phone] between 12-3 PM today. documented in this encounter [facility] 11-08-2021 History of Present illness Narrative PWS Roldan is a 42 year old female who has presented to the PWS multidisciplinary clinic at [facility]. She is accompanied by her warehouse engineer, Anali. History was obtained by the patient, Anali, and review of medical records. She was last seen here in 11/2021, and was seen by Dr. Mohamud, Meme Ly MS, RD, LDN. At her last visit, we requested she follow up in 6 months, but this was pushed back to today instead. She declined a referral with Dr. Zaida Alfaro today, as she has in the past.PCP: Dr. Sherif Thakur at [facility], fax number [phone], is currently seeing an CHILD DEVELOPMENT PROFESSOR named Older at this officeInterval History: She says that she feels good , and has not been sick. Anali does not report any changes in Deepali's mood, behavior, or health. She sees Dr. Thakur every 3 monthsDiet, weight, and physical activity:Weight/BMI: This visit 240 lbs, 53.24 kg/m2 Last visit (11/29/2021) 236 lbs, 52.42 kg/m2. Please see full dietary details from a separate RD's note. Now she is still on on 800 loraine/day of diet. She is not regularly weighed. Level of daily physical activity is low. She exercises mostly when she attends the workshop on Friday and Friday, where she works out (e.g., [employer], [place]) half a day. She just received a permission to walk on the road by herself but rarely does so.Behavioral concerns:None, skin picking not assessedSleep:She has a diagnosis of DACIA but does not use her CPAP, only when she is home with her mother every2 weekends.Bone health:Vitamin D:DEXA not available, declined todayEndocrinopathies:Diagnosis of hypogonadotropic hypogonadism, on OCP prescribed by Gynecology.A1c: 5.4, 12/2021LDL: 94, 12/2021TSH: 2.5, 10/2022Others:- Some of annual labs may not be available from our medical records - they may be accessible on [employer], and will hopefully be more available on [employer].- Seeing Gynecology for OCP (for bone health). Dx of uterine prolapse.- Asthma, using inhalers twice a day. She denies dyspnea, orthopnea, chest pain, or palpitation.- Lymphedema and venous insufficiency, being managed by Dr. Thakur. Symptoms are not worsening. h/o superficial thrombophlebitis at R thigh (without DVT) diagnosed 08/28, s/p 6 weeks of Eliquis.- Vision care: trying to get new glasses , sees optometry as recommended per Pascale- Dental care: [facility] from prior documentation, up to date per Anali- We plan to call the group sales manager Gayla to discuss her care, and will recommend the patient's mother come with her to future visits as well.ROS negative if not mentioned above, pertinent positives in HPI. [id number] Work Phone: 10-29-2021 History of Present illness Narrative Reason for Visit Patient presents with: Recheck: 4 month follow up Jose Abdul is a 41 year old female who presents here today for Above Complaints.. Health Maintenance HEPATITIS B(1 of 3 - 3-dose series) SPIROMETRY PNEUMOCOCCAL(2 - PCV) COVID-19 VACCINE(3 - Booster for Moderna series) HPI For her Prader Miguel A, she had an echo, which showed normal ef, normal diastolic dysfucntion and no valvular issues. Going to see her specialist in a couple days. Has been using new wraps on her legs and she needs help getting them on but once she has them on it works well for her edema. She has been having sore on the thigh or groin, she used lotrimin and it worked for her , issue is resolved Weight has been stable, she is not eating much. Patient is using her sleep machine. 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 She has been using the symbicort inhaler regularly , no asthma flares at this point No problem-specific Assessment & Plan notes found for this encounter. 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 Pertinent Lab/Diagnostic Studies are reviewed and discussed today Current Outpatient Medications: potassium chloride (K-TAB) 10 mEq tablet levothyroxine (SYNTHROID) 100 mcg tablet fluticasone (FLONASE) 50 mcg/actuation nasal spray FISH OIL 340-1,000 mg cap budesonide-formoterol (SYMBICORT) 160-4.5 mcg/actuation inhaler MEDICAL SUPPLY IRAIDA 0.35 mg tablet albuterol HFA (VENTOLIN HFA) 90 mcg/actuation inhaler naproxen (NAPROSYN) 500 mg tablet EPINEPHrine (EPIPEN) 0.3 mg/0.3 mL auto-injector furosemide (LASIX) 20 mg tablet clotrimazole (LOTRIMIN, CLOTRIM) 1 % cream ammonium lactate (LAC-HYDRIN) 12 % cream gaftdly-tgmulsmtl-wokbhjc D3 (OYSTER SHELL CALCIUM-VITAMIN D) 500 mg(1,250mg) -200 unit per tablet CERTAVITE-ANTIOXIDANT Gauze Bandage 2 X 2 bndg Desogestrel-Ethinyl Estradiol (APRI) 0.15-0.03 mg per tablet nystatin (MYCOSTATIN) powder diphenhydrAMINE (BENADRYL) 25 mg tablet cetirizine (ZYRTEC) 10 mg tablet COMPOUNDED PRESCRIPTION COMPOUNDED PRESCRIPTION COMPOUNDED PRESCRIPTION Current Facility-Administered Medications: perflutren lipid microspheres 1.3 mL in NaCl (PF) 0.9% 10 mL injection (DEFINITY) sodium chloride 0.9 % (flush) 10 mL (BD POSIFLUSH) Review of Systems CONSTITUTIONAL: No fevers, chills night sweats, unintended weight loss CARDIOVASCULAR: No chest pain, dyspnea, palpitations, orthopnea, PND, ankle edema. PULM: No dyspnea, unexplained cough. GI: No dysphagia/odynophagia, problematic reflux, constipation, diarrhea, changes in stool habits, hematochezia, melena. : No new urinary complaints, including dysuria, gross hematuria or pyuria. NEURO: No new balance problems, peripheral weakness/paresthesias or numbness of concern. Physical Exam BP 118/62 (BP Site: Left Arm, BP Position: Sitting, BP Cuff Size: Large Adult) Pulse (!) 56 Temp 37.5 C (99.5 F) Resp 16 Ht 142.2 cm (4' 8 ) Wt 109.8 kg (242 lb) LMP 05/13/2007 SpO2 95% BMI 54.26 kg/m General appearance: Well appearing, alert, in no acute distress, well nourished. Skin: superficial , circular ulcer, 2 cms in diameter. With no streaking of the ulcer Head: Normocephalic, no masses, lesions, tenderness or abnormalities Eyes: Anicteric sclera. Pupils are equally round and reactive to light. Extraocular movements are intact. Lungs: Lungs clear to auscultation. No wheezing, rhonchi, rales Heart: RRR without murmur, gallop, or rubs. Extremities: No deformities, edema, skin discoloration, clubbing or cyanosis. Good capillary refill. ASSESSMENT/PLAN: 1. 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 Skin ulcer, limited to breakdown of skin (HCC) - ICD9: 707.9, ICD10: L98.491 To apply dressing on it till it gets better 3. Pedal edema - ICD9: 782.3, ICD10: R60.0 With the wraps they are much much better. 4. Mild persistent asthma without complication - ICD9: 493.90, ICD10: J45.30 She is taking the symbicort on a daily basis. 5. Obstructive sleep apnea syndrome - ICD9: 327.23, ICD10: G47.33 Uses her machine on a daily basis. Sherif Thakur MD documented in this encounter [facility] 09-20-2021 Miscellaneous Notes Patient has been identified by name and date of : Yes Patient phones for refill(s): Pending Prescriptions Disp Refills POTASSIUM CHLORIDE ER 10 MEQ TABLET,EXTENDED RELEASE 45 tablet 2 Sig: Take one tablet on days when you are taking lasix. NAIMA: No Refused Prescriptions Disp Refills Fish Oil-[place]-3 Fatty Acids (FISH OIL) 340-1,000 mg cap 31 capsule 10 Sig: Take 1 capsule by mouth once daily. NAIMA: No levothyroxine (SYNTHROID) 100 mcg tablet 31 tablet 10 NAIMA: No Date of last office visit in primary care: 06/28/21 Please advise. Thank you. Alexia Prater LPN documented in this encounter [facility] 09-04-2021 Miscellaneous Notes NOV 10/29/21 POLA 08/20/21 Patient electronically sent a request for the following prescription(s) Pending Prescriptions Disp Refills LEVOTHYROXINE 100 MCG TABLET 31 tablet 10 Sig: TAKE ONE TABLET BY MOUTH DAILY ONE HOUR BEFORE BREAKFAST NAIMA: Yes Patient aware RX will be sent to pharmacy. No need to notify patient. Please review. Alexia Lin MA documented in this encounter [facility] 08-31-2021 Miscellaneous Notes Leyda notified. Ok to continue with therapy. Thank you Elsie Kaplan APRN.OBED Leyda calling to check on status of request. Advised provider out of office Th and Fri. Routing to CHILD DEVELOPMENT PROFESSOR. Yazan Franco LPN RODRÍGUEZ Crabtree @ [facility] calling to let PCP know patient was recertified for continued nursing visits 1 x/week for nine weeks for weekly skin checks. Asking for verbal saying Dr. Thakur agrees and will continue to follow orders. #[phone]. Annie Brand RN documented in this encounter [facility] 08-20-2021 History of Present illness Narrative Images from the original note were not included. CC: Patient presents with: sores in groin: X 1 week HPI Jose Abdul is a 41 year old female who presents today for above. Small sore left groin per caregiver. Noticed drainage, possibly purulent. Patient denies any pain or discomfort. Has had sores like this in the past. REVIEW OF SYSTEMS See HPI 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 2to pulonary fibrosis Thrombophlebitis Unspecified intellectual disabilities mild Viral pneumonia, unspecified LLL PAST SURGICAL HISTORY Procedure Laterality Date NONE ALLERGIES Bees,Wasps [Other]; Dilantin [Phenytoin Sodium Extended]; and Mosquitoes [Other] MEDICATIONS fluticasone (FLONASE) 50 mcg/actuation nasal spray INSTILL 2 SPRAYS IN EACH NOSTRIL DAILY FISH OIL 340-1,000 mg cap TAKE ONE CAPSULE BY MOUTH DAILY budesonide-formoterol (SYMBICORT) 160-4.5 mcg/actuation inhaler INHALE 2 PUFFS BY MOUTH TWICE DAILY ( INSTRUCTED) *[facility] [place] TABIONA Lymphedema massage therapy IRAIDA 0.35 mg tablet albuterol HFA (VENTOLIN HFA) 90 mcg/actuation inhaler Inhale 2 Puffs as instructed every 4 hours as needed for wheezing/shortness of breath. naproxen (NAPROSYN) 500 mg tablet TAKE ONE TABLET BY MOUTH TWICE DAILY NEEDED FOR PAIN/INFLAMMATION OF KNEE *TAKE WITH FOOD* *STAFF REORDER, 4 DAYS IN ADVANCE* EPINEPHrine (EPIPEN) 0.3 mg/0.3 mL auto-injector INJECT 1 PEN INTO LATERAL THIGH DIRECTED FOR ALLERGIC REACTIONS TO BEE/WASP STINGS MAY REPEAT IN 5-15 MINUTES IF SYMPTOMS PERSIST * *STAFF REORDER, 4 DAYS IN ADVANCE* furosemide (LASIX) 20 mg tablet TAKE ONE TABLET BY MOUTH EVERY OTHER DAY clotrimazole (LOTRIMIN, CLOTRIM) 1 % cream APPLY TOPICALLY TO AFFECTED AREA(S) ON BILATERAL GROIN TWICE DAILY ammonium lactate (LAC-HYDRIN) 12 % cream APPLY TOPICALLY TO AFFECTED AREA(S) ON LEGS AT BEDTIME izmvtbc-ifmjrbdbl-vqarsdf D3 (OYSTER SHELL CALCIUM-VITAMIN D) 500 mg(1,250mg) -200 unit per tablet Take 1 tablet by mouth twice daily with meals. potassium chloride (K-TAB) 10 mEq tablet Take one tablet on days when you are taking lasix. CERTAVITE-ANTIOXIDANT TAKE ONE TABLET BY MOUTH DAILY levothyroxine (SYNTHROID) 100 mcg tablet TAKE ONE TABLET BY MOUTH DAILY ONE HOUR BEFORE BREAKFAST Gauze Bandage 2 X 2 bndg Apply 1 application to affected area twice daily. Desogestrel-Ethinyl Estradiol (APRI) 0.15-0.03 mg per tablet Take 1 tablet by mouth once daily. nystatin (MYCOSTATIN) powder APPLY TOPICALLY TWICE DAILY TO AFFECTED AREA(S) ON ABDOMINAL FOLDS *EXTERNAL USE ONLY* diphenhydrAMINE (BENADRYL) 25 mg tablet Take 1 tablet by mouth every 6 hours as needed. cetirizine (ZYRTEC) 10 mg tablet Take 1 tablet by mouth once daily. COMPOUNDED PRESCRIPTION 1 Each once daily. Custom 20-30mmHg knee high compression stockings. Dx: Recurrent cellulitis legs and morbid obesity.Lymph Edema 8amfor 2 pairs per year COMPOUNDED PRESCRIPTION Pt's body checks to be completed once weekly during the day. COMPOUNDED PRESCRIPTION Weight check q Sun at 8pm and q Fri at 4pm Dx:Q87.1 FAMILY HISTORY Problem Relation Age of Onset Diabetes Maternal Grandmother Social History Tobacco Use Smoking status: Never Smoker Smokeless tobacco: Never Used Substance Use Topics Alcohol use: No Drug use: No PHYSICAL EXAM BP 132/78 Pulse 64 Wt 110.2 kg (243 lb) LMP 05/13/2007 BMI 54.48 kg/m General Appearance: well appearing, in no acute distress, alert ASSESSMENT/PLAN: 1. Skin ulcer of left thigh, limited to breakdown of skin (HCC) - ICD9: 707.11, ICD10: L97.121 No signs of infection. Lotrisone to area twice a day. Wound care discussed, see patient instructions Follow-up as needed for any worsening or signs of infection Prescription instructions reviewed with patient as applicable. Potential red flag symptoms discussed with the patient. Reviewed appropriate action plan to take if red flag symptoms occur. Patient agreeable to treatment plan. Rae Kaplan APRN.CNP documented in this encounter [facility] 08-20-2021 Instructions Rae Kaplan APRN.CNP - 08/20/2021 3:59 PM EDT Keep area(s) clean and dry. Apply Lotrisone cream twice a day If any unusual pain, swelling, red streaks, pus, fever or other signs of worsening infection, call immediately. documented in this encounter [facility] 08-14-2021 Miscellaneous Notes NOV 08/17/21 POLA 06/28/21 Patient electronically sent a request for the following prescription(s) Pending Prescriptions Disp Refills FLUTICASONE PROPIONATE 50 MCG/ACTUATION NASAL SPRAY,SUSPENSION 16 g 10 Sig: INSTILL 2 SPRAYS IN EACH NOSTRIL DAILY NAIMA: No FISH OIL 340 MG-1,000 MG CAPSULE 31 capsule 10 Sig: TAKE ONE CAPSULE BY MOUTH DAILY NAIMA: Yes BUDESONIDE-FORMOTEROL HFA 160 MCG-4.5 MCG/ACTUATION AEROSOL INHALER 10.2 g 10 Sig: INHALE 2 PUFFS BY MOUTH TWICE DAILY ( INSTRUCTED) *[employer]LL NAIMA: No Patient aware RX will be sent to pharmacy. No need to notify patient. Please review. Alexia Lin MA documented in this encounter [facility] 07-06-2021 Miscellaneous Notes Order has been faxed. Pascale Lorenzo LPN Yes Vikki MAZA from [facility] calls and is asking if provider will write an order for Lymphedema massage therapy treatment? If agreeable please fax order to either: Or Lillie Marshall RN documented in this encounter [facility] 06-28-2021 Miscellaneous Notes Patient is having home Physical Therapy evaluate her We will get back with details if that changes Thanks for reaching out [facility] asking for patient diagnosis for Physical Therapy order. He is also asking for clarification of what specifically PT is to evaluate. Order does not specify area of concern. Annie Brand RN documented in this encounter [facility] 06-28-2021 History of Present illness Narrative Reason for Visit Patient presents with: Recheck: 2 month groin pain Jose Abdul is a 40 year old female who presents here today for Above Complaints.. Health Maintenance SPIROMETRY DEPRESSION SCREENING COVID-19 VACCINE(3 - Booster for Moderna series) HPI New doctor for rigo gray: wants an echo , which we ordered for her to evaluate her heart Patient needs a walk in Shower as she is not able to get her legs over the bath tub to bathe or shower. This is because she has very heavy extremities and is finding it very difficult to lift her lower extremities and step or any latch that is even more than 2 inches. Patient needs her handicap placard Groin pain is much better than before, no concerns with No problem-specific Assessment & Plan notes found for this encounter. 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 2to pulonary fibrosis Thrombophlebitis Unspecified intellectual disabilities mild Viral pneumonia, unspecified LLL PAST SURGICAL HISTORY Procedure Laterality Date NONE FAMILY HISTORY Problem Relation Age of Onset Diabetes Maternal Grandmother Social History Tobacco Use Smoking status: Never Smoker Smokeless tobacco: Never Used Substance Use Topics Alcohol use: No Drug use: No Past medical history, appointments, medications, allergies reviewed. Pertinent Lab/Diagnostic Studies are reviewed and discussed today Current Outpatient Medications: IRAIDA 0.35 mg tablet albuterol HFA (VENTOLIN HFA) 90 mcg/actuation inhaler naproxen (NAPROSYN) 500 mg tablet EPINEPHrine (EPIPEN) 0.3 mg/0.3 mL auto-injector furosemide (LASIX) 20 mg tablet clotrimazole (LOTRIMIN, CLOTRIM) 1 % cream ammonium lactate (LAC-HYDRIN) 12 % cream tewnxoj-hpttksuux-qxzvmiu D3 (OYSTER SHELL CALCIUM-VITAMIN D) 500 mg(1,250mg) -200 unit per tablet potassium chloride (K-TAB) 10 mEq tablet CERTAVITE-ANTIOXIDANT levothyroxine (SYNTHROID) 100 mcg tablet Gauze Bandage 2 X 2 bndg Desogestrel-Ethinyl Estradiol (APRI) 0.15-0.03 mg per tablet fluticasone (FLONASE) 50 mcg/actuation nasal spray Fish Oil-[place]-3 Fatty Acids (FISH OIL) 340-1,000 mg cap budesonide-formoterol (SYMBICORT) 160-4.5 mcg/actuation inhaler nystatin (MYCOSTATIN) powder diphenhydrAMINE (BENADRYL) 25 mg tablet cetirizine (ZYRTEC) 10 mg tablet COMPOUNDED PRESCRIPTION COMPOUNDED PRESCRIPTION COMPOUNDED PRESCRIPTION Review of Systems CONSTITUTIONAL: No fevers, chills night sweats, unintended weight loss CARDIOVASCULAR: No chest pain, dyspnea, palpitations, orthopnea, PND, ankle edema. PULM: No dyspnea, unexplained cough. GI: No dysphagia/odynophagia, problematic reflux, constipation, diarrhea, changes in stool habits, hematochezia, melena. : No new urinary complaints, including dysuria, gross hematuria or pyuria. NEURO: No new balance problems, peripheral weakness/paresthesias or numbness of concern. Physical Exam BP 136/86 Pulse (!) 51 Temp 37 C (98.6 F) Resp 18 Wt 109.8 kg (242 lb) LMP 05/13/2007 SpO2 99% BMI 54.26 kg/m General appearance: Well appearing, alert, in no acute distress, well nourished. Skin: Skin color, texture, turgor normal, no suspicious rashes or lesions Head: Normocephalic, no masses, lesions, tenderness or abnormalities Eyes: Anicteric sclera. Pupils are equally round and reactive to light. Extraocular movements are intact. Lungs: Lungs clear to auscultation. No wheezing, rhonchi, rales Heart: RRR without murmur, gallop, or rubs. Examined her gait: she is not able to lift her foot more than 2.5 inches off the ground. ASSESSMENT/PLAN: 1. 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 SOB (shortness of breath) - ICD9: 786.05, ICD10: R06.02 - ECHO - PERFLUTREN LIPID MICROSPHERES 1.1 MG/ML INJECTION IN NS 10 ML - SODIUM CHLORIDE 0.9 % (FLUSH) INJECTION SYRINGE 3. Physical therapy evaluation, initial - ICD9: V72.85, ICD10: Z01.89 To assess for need of walk in shower Sherif Thakur MD documented in this encounter [facility] 06-22-2021 Miscellaneous Notes Brianna notified and verbalized understanding. Kristie Khan Ma Agree with below. Jacquelyn Allen APRN.CNP Brianna Moise with [facility] called and states they were contacted to have nursing come into the retirement for pt weekly. This will be for skin issues and weight issues. Pt was identified with name and date of . Requesting the followin. verbal order to start care in the home weekly. Okay to leave a message 2. fax last OV for PCP - 04/23/21 to [phone]. This has been faxed. Pamela Singh LPN documented in this encounter [facility] 06-14-2021 Miscellaneous Notes Ready for peanut picker in Medical Records. Forms received and placed on PCP desk for review. Has this paperwork been received? Thank you Elsie Kaplan APRN.MANAGING DIRECTOR ATLAS Pt's caregiver Anali asking if the paperwork that she dropped off last week is completed yet? For is for pt to use her epi pen while at the workshop. Mima Parson LPN documented in this encounter [facility] 06-06-2021 Miscellaneous Notes vendor relationship manager notified ----- Message from Sherif Thakur MD sent at 06/01/2021 5:32 PM EDT ----- Hip joint and synovium are normal documented in this encounter [facility] 02-15-2021 Note HNO ID: [id number] Author: Ricki Hirsch MD Service: ? Author Type: Physician Type: Progress Notes Filed: 02/15/2021 10:05 AM Note Text: Patient seen back today to discuss results of her venous duplex testing. I am pleased to report that the patient currently has no new evidence of superficial or deep thrombophlebitis. In the areas that had been previously concerned about the patient does not appear to have any current thrombophlebitis. With that being the case the patient should return to primary therapy with pumping for her lymphedema as well as lymphedema wraps. She is in her lymphedema wraps when she comes for office visit today. Overall my plan for this patient would be to follow-up with him on an as needed basis. The only thing I might add to her regimen that might help prevent further episodes of superficial thrombophlebitis is a baby aspirin but I would recommend that they check with her primary care physician to be sure that there is no contraindications to this in this patient. If there are contraindications it is not critical that she be on this this is just in an attempt to prevent further episodes of superficial phlebitis. I discussed this with the patient and with her caregiver and at this point in time tell them that we will follow-up with them on an as needed basis. This note was generated with [employer] dictation software. It may contain incorrect words, spelling, and punctuation and that were not noted in review of the chart prior to signing. I spent 15 minutes in the visit, with more than 50% of the total rrwh-nq-fgzw time of the visit in counseling / coordination of care. Recommendations: #1 continue lymphedema pumping #2 continue lymphedema wraps #3 check with primary care physician and if no contraindications begin enteric-coated baby aspirin on a daily basis. [facility] 01-18-2021 Note HNO ID: [id number] Author: Ricki Hirsch MD Service: ? Author Type: Physician Type: Progress Notes Filed: 01/29/2021 2:01 PM Note Text: This is a patient we see back for a new problem. She had been seen here previously for her lymphedema has been ordered lymphedema pumps and as well uses compression. She states that she uses the lymphedema pumps almost on a daily basis and her lymphedema is still significant. This is most likely because this is lymphedema associated with morbid obesity and unless weight loss occurs the lymphedema is really not going to change dramatically. Her BMI has actually gone up since the last time I saw her. The current request is to evaluate phlebitis that was diagnosed back in August of this year. At this point in time I am really hard pressed to make any recommendations for treatment other than the fact that the patient should probably having a history of superficial phlebitis be placed on a baby aspirin if not medically contraindicated. I make this recommendation and some written notes and asked them to clear up with her primary care physician. Overall she denies any pain or tenderness in the leg and the swelling in the legs is about equal. I think the most beneficial plan of action is to go ahead and repeat the scans and see if we still see the superficial phlebitis being present. If it is 1 might make a consideration of progressing to a more aggressive form of anticoagulation if not medically contraindicated. This is discussed with the patient and her caregiver and the plan will be to go ahead and proceed with bilateral lower extremity venous duplex scans begin on a baby aspirin if not contraindicated by her primary care and see her back in about a month. This note was generated with [employer] dictation software. It may contain incorrect words, spelling, and punctuation and that were not noted in review of the chart prior to signing. I spent 15 minutes in the visit, with more than 50% of the total jaig-ka-funr time of the visit in counseling / coordination of care. [facility] 01-16-2016 History of Past i llness Narrative Problem Noted Date Resolved Date Venous stasis ulcers 01/16/2016 06/17/2016 BMI 40.0-44.9, adult 12/14/2014 02/09/2015 BMI 50.0-59.9, adult 10/11/2013 12/14/2014 Other lymphedema 04/26/2013 12/14/2014 Mental status change 01/08/2013 12/13/2013 Overview: Transient mental status change; [facility], 12/09/12 Amenorrhea 06/18/2011 12/07/2015 Open wound of knee, leg (exc ept thigh), and ankle, without mention of complication 12/04/2009 12/13/2013 SLEEP APNEA 01/28/2006 12/14/2014 HYPOTHYROIDISM NOS 01/28/2006 12/14/2014 Morbid obesity 01/28/2006 12/13/2013 VENOUS INSUFFICIENCY 08/27/2005 12/14/2014 Other malaise and fatigue 08/06/20052013 Other dyspnea and respiratory abnormality 200512/13/2013 Other alteration of consciousness 08/06/2005 12/13/2013 WEIGHT GAIN, ABNORMAL 08/06/2005 12/13/2013 documented as of this encounter (statuses as of 06/06/2021) [facility]11-[facility]2016 History of Past illness Narrative* Problem Noted Date Resolved Date Venous stasis ulcers 01/16/2016 06/17/2016 BMI 40.0-44.9, adult 12/14/2014 02/09/2015 BMI 50.0-59.9, adult 10/11/2013 12/14/2014 Other lymphedema 04/26/2013 12/14/2014 Mental status change 01/08/2013 12/13/2013 Overview: Transient mental status change; [facility], 12/09/12 Amenorrhea 06/18/2011 12/07/2015 Open wound of knee, leg (exc ept thigh), and ankle, without mention of complication 12/04/2009 12/13/2013 SLEEP APNEA 01/28/2006 12/14/2014 HYPOTHYROIDISM NOS 01/28/2006 12/14/2014 Morbid obesity 01/28/2006 12/13/2013 VENOUS INSUFFICIENCY 08/27/2005 12/14/2014 Other malaise and fatigue 08/06/20052013 Other dyspnea and respiratory abnormality 200512/13/2013 Other alteration of consciousness 08/06/2005 12/13/2013 WEIGHT GAIN, ABNORMAL 08/06/2005 12/13/2013 documented as of this encounter (statuses as of 06/14/2021) [facility] History of Past illness Narrative* Problem Noted Date Resolved Date Venous stasis ulcers 01/16/2016 06/17/2016 BMI 40.0-44.9, adult 12/14/2014 02/09/2015 BMI 50.0-59.9, adult 10/11/2013 12/14/2014 Other lymphedema 04/26/2013 12/14/2014 Mental status change 01/08/2013 12/13/2013 Overview: Transient mental status change; [facility], 12/09/12 Amenorrhea 06/18/2011 12/07/2015 Open wound of knee, leg (exc ept thigh), and ankle, without mention of complication 12/04/2009 12/13/2013 SLEEP APNEA 01/28/2006 12/14/2014 HYPOTHYROIDISM NOS 01/28/2006 12/14/2014 Morbid obesity 01/28/2006 12/13/2013 VENOUS INSUFFICIENCY 08/27/2005 12/14/2014 Other malaise and fatigue 08/06/20052013 Other dyspnea and respiratory abnormality 200512/13/2013 Other alteration of consciousness 08/06/2005 12/13/2013 WEIGHT GAIN, ABNORMAL 08/06/2005 12/13/2013 documented as of this encounter (statuses as of 06/22/2021) [facility] History of Past illness Narrative* Problem Noted Date Resolved Date Venous stasis ulcers 01/16/2016 06/17/2016 BMI 40.0-44.9, adult 12/14/2014 02/09/2015 BMI 50.0-59.9, adult 10/11/2013 12/14/2014 Other lymphedema 04/26/2013 12/14/2014 Mental status change 01/08/2013 12/13/2013 Overview: Transient mental status change; [facility], 12/09/12 Amenorrhea 06/18/2011 12/07/2015 Open wound of knee, leg (exc ept thigh), and ankle, without mention of complication 12/04/2009 12/13/2013 SLEEP APNEA 01/28/2006 12/14/2014 HYPOTHYROIDISM NOS 01/28/2006 12/14/2014 Morbid obesity 01/28/2006 12/13/2013 VENOUS INSUFFICIENCY 08/27/2005 12/14/2014 Other malaise and fatigue 08/06/20052013 Other dyspnea and respiratory abnormality 200512/13/2013 Other alteration of consciousness 08/06/2005 12/13/2013 WEIGHT GAIN, ABNORMAL 08/06/2005 12/13/2013 documented as of this encounter (statuses as of 06/28/2021) [facility] History of Past illness Narrative* Problem Noted Date Resolved Date Venous stasis ulcers 01/16/2016 06/17/2016 BMI 40.0-44.9, adult 12/14/2014 02/09/2015 BMI 50.0-59.9, adult 10/11/2013 12/14/2014 Other lymphedema 04/26/2013 12/14/2014 Mental status change 01/08/2013 12/13/2013 Overview: Transient mental status change; [facility], 12/09/12 Amenorrhea 06/18/2011 12/07/2015 Open wound of knee, leg (exc ept thigh), and ankle, without mention of complication 12/04/2009 12/13/2013 SLEEP APNEA 01/28/2006 12/14/2014 HYPOTHYROIDISM NOS 01/28/2006 12/14/2014 Morbid obesity 01/28/2006 12/13/2013 VENOUS INSUFFICIENCY 08/27/2005 12/14/2014 Other malaise and fatigue 08/06/20052013 Other dyspnea and respiratory abnormality 200512/13/2013 Other alteration of consciousness 08/06/2005 12/13/2013 WEIGHT GAIN, ABNORMAL 08/06/2005 12/13/2013 documented as of this encounter (statuses as of 06/28/2021) [facility] History of Past illness Narrative* Problem Noted Date Resolved Date Venous stasis ulcers 01/16/2016 06/17/2016 BMI 40.0-44.9, adult 12/14/2014 02/09/2015 BMI 50.0-59.9, adult 10/11/2013 12/14/2014 Other lymphedema 04/26/2013 12/14/2014 Mental status change 01/08/2013 12/13/2013 Overview: Transient mental status change; [facility], 12/09/12 Amenorrhea 06/18/2011 12/07/2015 Open wound of knee, leg (exc ept thigh), and ankle, without mention of complication 12/04/2009 12/13/2013 SLEEP APNEA 01/28/2006 12/14/2014 HYPOTHYROIDISM NOS 01/28/2006 12/14/2014 Morbid obesity 01/28/2006 12/13/2013 VENOUS INSUFFICIENCY 08/27/2005 12/14/2014 Other malaise and fatigue 08/06/20052013 Other dyspnea and respiratory abnormality 200512/13/2013 Other alteration of consciousness 08/06/2005 12/13/2013 WEIGHT GAIN, ABNORMAL 08/06/2005 12/13/2013 documented as of this encounter (statuses as of 07/06/2021) [facility] History of Past illness Narrative* Problem Noted Date Resolved Date Venous stasis ulcers 01/16/2016 06/17/2016 BMI 40.0-44.9, adult 12/14/2014 02/09/2015 BMI 50.0-59.9, adult 10/11/2013 12/14/2014 Other lymphedema 04/26/2013 12/14/2014 Mental status change 01/08/2013 12/13/2013 Overview: Transient mental status change; [facility], 12/09/12 Amenorrhea 06/18/2011 12/07/2015 Open wound of knee, leg (exc ept thigh), and ankle, without mention of complication 12/04/2009 12/13/2013 SLEEP APNEA 01/28/2006 12/14/2014 HYPOTHYROIDISM NOS 01/28/2006 12/14/2014 Morbid obesity 01/28/2006 12/13/2013 VENOUS INSUFFICIENCY 08/27/2005 12/14/2014 Other malaise and fatigue 08/06/20052013 Other dyspnea and respiratory abnormality 200512/13/2013 Other alteration of consciousness 08/06/2005 12/13/2013 WEIGHT GAIN, ABNORMAL 08/06/2005 12/13/2013 documented as of this encounter (statuses as of 08/15/2021) [facility] History of Past illness Narrative* Problem Noted Date Resolved Date Venous stasis ulcers 01/16/2016 06/17/2016 BMI 40.0-44.9, adult 12/14/2014 02/09/2015 BMI 50.0-59.9, adult 10/11/2013 12/14/2014 Other lymphedema 04/26/2013 12/14/2014 Mental status change 01/08/2013 12/13/2013 Overview: Transient mental status change; [facility], 12/09/12 Amenorrhea 06/18/2011 12/07/2015 Open wound of knee, leg (exc ept thigh), and ankle, without mention of complication 12/04/2009 12/13/2013 SLEEP APNEA 01/28/2006 12/14/2014 HYPOTHYROIDISM NOS 01/28/2006 12/14/2014 Morbid obesity 01/28/2006 12/13/2013 VENOUS INSUFFICIENCY 08/27/2005 12/14/2014 Other malaise and fatigue 08/06/20052013 Other dyspnea and respiratory abnormality 200512/13/2013 Other alteration of consciousness 08/06/2005 12/13/2013 WEIGHT GAIN, ABNORMAL 08/06/2005 12/13/2013 documented as of this encounter (statuses as of 08/20/2021) [facility] History of Past illness Narrative* Problem Noted Date Resolved Date Venous stasis ulcers 01/16/2016 06/17/2016 BMI 40.0-44.9, adult 12/14/2014 02/09/2015 BMI 50.0-59.9, adult 10/11/2013 12/14/2014 Other lymphedema 04/26/2013 12/14/2014 Mental status change 01/08/2013 12/13/2013 Overview: Transient mental status change; [facility], 12/09/12 Amenorrhea 06/18/2011 12/07/2015 Open wound of knee, leg (exc ept thigh), and ankle, without mention of complication 12/04/2009 12/13/2013 SLEEP APNEA 01/28/2006 12/14/2014 HYPOTHYROIDISM NOS 01/28/2006 12/14/2014 Morbid obesity 01/28/2006 12/13/2013 VENOUS INSUFFICIENCY 08/27/2005 12/14/2014 Other malaise and fatigue 08/06/20052013 Other dyspnea and respiratory abnormality 200512/13/2013 Other alteration of consciousness 08/06/2005 12/13/2013 WEIGHT GAIN, ABNORMAL 08/06/2005 12/13/2013 documented as of this encounter (statuses as of 08/31/2021) [facility] History of Past illness Narrative* Problem Noted Date Resolved Date Venous stasis ulcers 01/16/2016 06/17/2016 BMI 40.0-44.9, adult 12/14/2014 02/09/2015 BMI 50.0-59.9, adult 10/11/2013 12/14/2014 Other lymphedema 04/26/2013 12/14/2014 Mental status change 01/08/2013 12/13/2013 Overview: Transient mental status change; [facility], 12/09/12 Amenorrhea 06/18/2011 12/07/2015 Open wound of knee, leg (exc ept thigh), and ankle, without mention of complication 12/04/2009 12/13/2013 SLEEP APNEA 01/28/2006 12/14/2014 HYPOTHYROIDISM NOS 01/28/2006 12/14/2014 Morbid obesity 01/28/2006 12/13/2013 VENOUS INSUFFICIENCY 08/27/2005 12/14/2014 Other malaise and fatigue 08/06/20052013 Other dyspnea and respiratory abnormality 200512/13/2013 Other alteration of consciousness 08/06/2005 12/13/2013 WEIGHT GAIN, ABNORMAL 08/06/2005 12/13/2013 documented as of this encounter (statuses as of 09/05/2021) [facility] History of Past illness Narrative* Problem Noted Date Resolved Date Venous stasis ulcers 01/16/2016 06/17/2016 BMI 40.0-44.9, adult 12/14/2014 02/09/2015 BMI 50.0-59.9, adult 10/11/2013 12/14/2014 Other lymphedema 04/26/2013 12/14/2014 Mental status change 01/08/2013 12/13/2013 Overview: Transient mental status change; [facility], 12/09/12 Amenorrhea 06/18/2011 12/07/2015 Open wound of knee, leg (exc ept thigh), and ankle, without mention of complication 12/04/2009 12/13/2013 SLEEP APNEA 01/28/2006 12/14/2014 HYPOTHYROIDISM NOS 01/28/2006 12/14/2014 Morbid obesity 01/28/2006 12/13/2013 VENOUS INSUFFICIENCY 08/27/2005 12/14/2014 Other malaise and fatigue 08/06/20052013 Other dyspnea and respiratory abnormality 200512/13/2013 Other alteration of consciousness 08/06/2005 12/13/2013 WEIGHT GAIN, ABNORMAL 08/06/2005 12/13/2013 documented as of this encounter (statuses as of 09/20/2021) [facility] History of Past illness Narrative* Problem Noted Date Resolved Date Venous stasis ulcers 01/16/2016 06/17/2016 BMI 40.0-44.9, adult 12/14/2014 02/09/2015 BMI 50.0-59.9, adult 10/11/2013 12/14/2014 Other lymphedema 04/26/2013 12/14/2014 Mental status change 01/08/2013 12/13/2013 Overview: Transient mental status change; [facility], 12/09/12 Amenorrhea 06/18/2011 12/07/2015 Open wound of knee, leg (exc ept thigh), and ankle, without mention of complication 12/04/2009 12/13/2013 SLEEP APNEA 01/28/2006 12/14/2014 HYPOTHYROIDISM NOS 01/28/2006 12/14/2014 Morbid obesity 01/28/2006 12/13/2013 VENOUS INSUFFICIENCY 08/27/2005 12/14/2014 Other malaise and fatigue 08/06/20052013 Other dyspnea and respiratory abnormality 200512/13/2013 Other alteration of consciousness 08/06/2005 12/13/2013 WEIGHT GAIN, ABNORMAL 08/06/2005 12/13/2013 documented as of this encounter (statuses as of 10/29/2021) [facility] History of Past illness Narrative* Problem Noted Date Resolved Date Venous stasis ulcers 01/16/2016 06/17/2016 BMI 40.0-44.9, adult 12/14/2014 02/09/2015 BMI 50.0-59.9, adult 10/11/2013 12/14/2014 Other lymphedema 04/26/2013 12/14/2014 Mental status change 01/08/2013 12/13/2013 Overview: Transient mental status change; [facility], 12/09/12 Amenorrhea 06/18/2011 12/07/2015 Open wound of knee, leg (exc ept thigh), and ankle, without mention of complication 12/04/2009 12/13/2013 SLEEP APNEA 01/28/2006 12/14/2014 HYPOTHYROIDISM NOS 01/28/2006 12/14/2014 Morbid obesity 01/28/2006 12/13/2013 VENOUS INSUFFICIENCY 08/27/2005 12/14/2014 Other malaise and fatigue 08/06/20052013 Other dyspnea and respiratory abnormality 200512/13/2013 Other alteration of consciousness 08/06/2005 12/13/2013 WEIGHT GAIN, ABNORMAL 08/06/2005 12/13/2013 documented as of this encounter (statuses as of 11/29/2021) [facility] History of Past illness Narrative* Problem Noted Date Resolved Date Venous stasis ulcers 01/16/2016 06/17/2016 BMI 40.0-44.9, adult 12/14/2014 02/09/2015 BMI 50.0-59.9, adult 10/11/2013 12/14/2014 Other lymphedema 04/26/2013 12/14/2014 Mental status change 01/08/2013 12/13/2013 Overview: Transient mental status change; [facility], 12/09/12 Amenorrhea 06/18/2011 12/07/2015 Open wound of knee, leg (exc ept thigh), and ankle, without mention of complication 12/04/2009 12/13/2013 SLEEP APNEA 01/28/2006 12/14/2014 HYPOTHYROIDISM NOS 01/28/2006 12/14/2014 Morbid obesity 01/28/2006 12/13/2013 VENOUS INSUFFICIENCY 08/27/2005 12/14/2014 Other malaise and fatigue 08/06/20052013 Other dyspnea and respiratory abnormality 200512/13/2013 Other alteration of consciousness 08/06/2005 12/13/2013 WEIGHT GAIN, ABNORMAL 08/06/2005 12/13/2013 documented as of this encounter (statuses as of 12/13/2021) [facility] History of Past illness Narrative* Problem Noted Date Resolved Date Venous stasis ulcers 01/16/2016 06/17/2016 BMI 40.0-44.9, adult 12/14/2014 02/09/2015 BMI 50.0-59.9, adult 10/11/2013 12/14/2014 Other lymphedema 04/26/2013 12/14/2014 Mental status change 01/08/2013 12/13/2013 Overview: Transient mental status change; [facility], 12/09/12 Amenorrhea 06/18/2011 12/07/2015 Open wound of knee, leg (exc ept thigh), and ankle, without mention of complication 12/04/2009 12/13/2013 SLEEP APNEA 01/28/2006 12/14/2014 HYPOTHYROIDISM NOS 01/28/2006 12/14/2014 Morbid obesity 01/28/2006 12/13/2013 VENOUS INSUFFICIENCY 08/27/2005 12/14/2014 Other malaise and fatigue 08/06/20052013 Other dyspnea and respiratory abnormality 200512/13/2013 Other alteration of consciousness 08/06/2005 12/13/2013 WEIGHT GAIN, ABNORMAL 08/06/2005 12/13/2013 documented as of this encounter (statuses as of 01/23/2022) [facility]11-08-2016 History of Past illness Narrative* Problem Noted Date Resolved Date Venous stasis ulcers 01/16/2016 06/17/2016 BMI 40.0-44.9, adult 12/14/2014 02/09/2015 BMI 50.0-59.9, adult 10/11/2013 12/14/2014 Other lymphedema 04/26/2013 12/14/2014 Mental status change 01/08/2013 12/13/2013 Overview: Transient mental status change; [facility], 12/09/12 Amenorrhea 06/18/2011 12/07/2015 Open wound of knee, leg (exc ept thigh), and ankle, without mention of complication 12/04/2009 12/13/2013 SLEEP APNEA 01/28/2006 12/14/2014 HYPOTHYROIDISM NOS 01/28/2006 12/14/2014 Morbid obesity 01/28/2006 12/13/2013 VENOUS INSUFFICIENCY 08/27/2005 12/14/2014 Other malaise and fatigue 08/06/20052013 Other dyspnea and respiratory abnormality 200512/13/2013 Other alteration of consciousness 08/06/2005 12/13/2013 WEIGHT GAIN, ABNORMAL 08/06/2005 12/13/2013 documented as of this encounter (statuses as of 01/29/2022) [facility]11-08-2016 History of Past illness Narrative* Problem Noted Date Resolved Date Venous stasis ulcers 01/16/2016 06/17/2016 BMI 40.0-44.9, adult 12/14/2014 02/09/2015 BMI 50.0-59.9, adult 10/11/2013 12/14/2014 Other lymphedema 04/26/2013 12/14/2014 Mental status change 01/08/2013 12/13/2013 Overview: Transient mental status change; [facility], 12/09/12 Amenorrhea 06/18/2011 12/07/2015 Open wound of knee, leg (exc ept thigh), and ankle, without mention of complication 12/04/2009 12/13/2013 SLEEP APNEA 01/28/2006 12/14/2014 HYPOTHYROIDISM NOS 01/28/2006 12/14/2014 Morbid obesity 01/28/2006 12/13/2013 VENOUS INSUFFICIENCY 08/27/2005 12/14/2014 Other malaise and fatigue 08/06/20052013 Other dyspnea and respiratory abnormality 200512/13/2013 Other alteration of consciousness 08/06/2005 12/13/2013 WEIGHT GAIN, ABNORMAL 08/06/2005 12/13/2013 documented as of this encounter (statuses as of 02/06/2022) [facility]11-08-2016 History of Past illness Narrative* Problem Noted Date Resolved Date Venous stasis ulcers 01/16/2016 06/17/2016 BMI 40.0-44.9, adult 12/14/2014 02/09/2015 BMI 50.0-59.9, adult 10/11/2013 12/14/2014 Other lymphedema 04/26/2013 12/14/2014 Mental status change 01/08/2013 12/13/2013 Overview: Transient mental status change; [facility], 12/09/12 Amenorrhea 06/18/2011 12/07/2015 Open wound of knee, leg (exc ept thigh), and ankle, without mention of complication 12/04/2009 12/13/2013 SLEEP APNEA 01/28/2006 12/14/2014 HYPOTHYROIDISM NOS 01/28/2006 12/14/2014 Morbid obesity 01/28/2006 12/13/2013 VENOUS INSUFFICIENCY 08/27/2005 12/14/2014 Other malaise and fatigue 08/06/20052013 Other dyspnea and respiratory abnormality 200512/13/2013 Other alteration of consciousness 08/06/2005 12/13/2013 WEIGHT GAIN, ABNORMAL 08/06/2005 12/13/2013 documented as of this encounter (statuses as of 03/22/2022) [facility]11-08-2016 History of Past illness Narrative* Problem Noted Date Resolved Date Venous stasis ulcers 01/16/2016 06/17/2016 BMI 40.0-44.9, adult 12/14/2014 02/09/2015 BMI 50.0-59.9, adult 10/11/2013 12/14/2014 Other lymphedema 04/26/2013 12/14/2014 Mental status change 01/08/2013 12/13/2013 Overview: Transient mental status change; [facility], 12/09/12 Amenorrhea 06/18/2011 12/07/2015 Open wound of knee, leg (exc ept thigh), and ankle, without mention of complication 12/04/2009 12/13/2013 SLEEP APNEA 01/28/2006 12/14/2014 HYPOTHYROIDISM NOS 01/28/2006 12/14/2014 Morbid obesity 01/28/2006 12/13/2013 VENOUS INSUFFICIENCY 08/27/2005 12/14/2014 Other malaise and fatigue 08/06/20052013 Other dyspnea and respiratory abnormality 200512/13/2013 Other alteration of consciousness 08/06/2005 12/13/2013 WEIGHT GAIN, ABNORMAL 08/06/2005 12/13/2013 documented as of this encounter (statuses as of 05/02/2022) [facility]11-08-2016 History of Past illness Narrative* Problem Noted Date Resolved Date Venous stasis ulcers 01/16/2016 06/17/2016 BMI 40.0-44.9, adult 12/14/2014 02/09/2015 BMI 50.0-59.9, adult 10/11/2013 12/14/2014 Other lymphedema 04/26/2013 12/14/2014 Mental status change 01/08/2013 12/13/2013 Overview: Transient mental status change; [facility], 12/09/12 Amenorrhea 06/18/2011 12/07/2015 Open wound of knee, leg (exc ept thigh), and ankle, without mention of complication 12/04/2009 12/13/2013 SLEEP APNEA 01/28/2006 12/14/2014 HYPOTHYROIDISM NOS 01/28/2006 12/14/2014 Morbid obesity 01/28/2006 12/13/2013 VENOUS INSUFFICIENCY 08/27/2005 12/14/2014 Other malaise and fatigue 08/06/20052013 Other dyspnea and respiratory abnormality 200512/13/2013 Other alteration of consciousness 08/06/2005 12/13/2013 WEIGHT GAIN, ABNORMAL 08/06/2005 12/13/2013 documented as of this encounter (statuses as of 05/17/2022) [facility]11-08-2016 History of Past illness Narrative* Problem Noted Date Resolved Date Venous stasis ulcers 01/16/2016 06/17/2016 BMI 40.0-44.9, adult 12/14/2014 02/09/2015 BMI 50.0-59.9, adult 10/11/2013 12/14/2014 Other lymphedema 04/26/2013 12/14/2014 Mental status change 01/08/2013 12/13/2013 Overview: Transient mental status change; [facility], 12/09/12 Amenorrhea 06/18/2011 12/07/2015 Open wound of knee, leg (exc ept thigh), and ankle, without mention of complication 12/04/2009 12/13/2013 SLEEP APNEA 01/28/2006 12/14/2014 HYPOTHYROIDISM NOS 01/28/2006 12/14/2014 Morbid obesity 01/28/2006 12/13/2013 VENOUS INSUFFICIENCY 08/27/2005 12/14/2014 Other malaise and fatigue 08/06/20052013 Other dyspnea and respiratory abnormality 200512/13/2013 Other alteration of consciousness 08/06/2005 12/13/2013 WEIGHT GAIN, ABNORMAL 08/06/2005 12/13/2013 documented as of this encounter (statuses as of 06/06/2022) [facility]11-08-2016 History of Past illness Narrative* Problem Noted Date Resolved Date Venous stasis ulcers 01/16/2016 06/17/2016 BMI 40.0-44.9, adult 12/14/2014 02/09/2015 BMI 50.0-59.9, adult 10/11/2013 12/14/2014 Other lymphedema 04/26/2013 12/14/2014 Mental status change 01/08/2013 12/13/2013 Overview: Transient mental status change; [facility], 12/09/12 Amenorrhea 06/18/2011 12/07/2015 Open wound of knee, leg (exc ept thigh), and ankle, without mention of complication 12/04/2009 12/13/2013 SLEEP APNEA 01/28/2006 12/14/2014 HYPOTHYROIDISM NOS 01/28/2006 12/14/2014 Morbid obesity 01/28/2006 12/13/2013 VENOUS INSUFFICIENCY 08/27/2005 12/14/2014 Other malaise and fatigue 08/06/20052013 Other dyspnea and respiratory abnormality 200512/13/2013 Other alteration of consciousness 08/06/2005 12/13/2013 WEIGHT GAIN, ABNORMAL 08/06/2005 12/13/2013 documented as of this encounter (statuses as of 07/18/2022) [facility]11-08-2016 History of Past illness Narrative* Problem Noted Date Resolved Date Venous stasis ulcers 01/16/2016 06/17/2016 BMI 40.0-44.9, adult 12/14/2014 02/09/2015 BMI 50.0-59.9, adult 10/11/2013 12/14/2014 Other lymphedema 04/26/2013 12/14/2014 Mental status change 01/08/2013 12/13/2013 Overview: Transient mental status change; [facility], 12/09/12 Amenorrhea 06/18/2011 12/07/2015 Open wound of knee, leg (exc ept thigh), and ankle, without mention of complication 12/04/2009 12/13/2013 SLEEP APNEA 01/28/2006 12/14/2014 HYPOTHYROIDISM NOS 01/28/2006 12/14/2014 Morbid obesity 01/28/2006 12/13/2013 VENOUS INSUFFICIENCY 08/27/2005 12/14/2014 Other malaise and fatigue 08/06/20052013 Other dyspnea and respiratory abnormality 200512/13/2013 Other alteration of consciousness 08/06/2005 12/13/2013 WEIGHT GAIN, ABNORMAL 08/06/2005 12/13/2013 documented as of this encounter (statuses as of 08/08/2022) [facility]11-08-2016 History of Past illness Narrative* Problem Noted Date Resolved Date Venous stasis ulcers 01/16/2016 06/17/2016 BMI 40.0-44.9, adult 12/14/2014 02/09/2015 BMI 50.0-59.9, adult 10/11/2013 12/14/2014 Other lymphedema 04/26/2013 12/14/2014 Mental status change 01/08/2013 12/13/2013 Overview: Transient mental status change; [facility], 12/09/12 Amenorrhea 06/18/2011 12/07/2015 Open wound of knee, leg (exc ept thigh), and ankle, without mention of complication 12/04/2009 12/13/2013 SLEEP APNEA 01/28/2006 12/14/2014 HYPOTHYROIDISM NOS 01/28/2006 12/14/2014 Morbid obesity 01/28/2006 12/13/2013 VENOUS INSUFFICIENCY 08/27/2005 12/14/2014 Other malaise and fatigue 08/06/20052013 Other dyspnea and respiratory abnormality 200512/13/2013 Other alteration of consciousness 08/06/2005 12/13/2013 WEIGHT GAIN, ABNORMAL 08/06/2005 12/13/2013 documented as of this encounter (statuses as of 08/23/2022) [facility]11-08-2016 History of Past illness Narrative* Problem Noted Date Resolved Date Venous stasis ulcers 01/16/2016 06/17/2016 BMI 40.0-44.9, adult 12/14/2014 02/09/2015 BMI 50.0-59.9, adult 10/11/2013 12/14/2014 Other lymphedema 04/26/2013 12/14/2014 Mental status change 01/08/2013 12/13/2013 Overview: Transient mental status change; [facility], 12/09/12 Amenorrhea 06/18/2011 12/07/2015 Open wound of knee, leg (exc ept thigh), and ankle, without mention of complication 12/04/2009 12/13/2013 SLEEP APNEA 01/28/2006 12/14/2014 HYPOTHYROIDISM NOS 01/28/2006 12/14/2014 Morbid obesity 01/28/2006 12/13/2013 VENOUS INSUFFICIENCY 08/27/2005 12/14/2014 Other malaise and fatigue 08/06/20052013 Other dyspnea and respiratory abnormality 200512/13/2013 Other alteration of consciousness 08/06/2005 12/13/2013 WEIGHT GAIN, ABNORMAL 08/06/2005 12/13/2013 documented as of this encounter (statuses as of 08/27/2022) [facility]11-08-2016 History of Past illness Narrative* Problem Noted Date Diagnosed Date Resolved Date Venous stasis ulcers 01/16/2016 017 BMI 40.0-44.9, adult 12/14/2014 015 BMI 50.0-59.9, adult 10/11/2013 015 Other lymphedema 04/26/2013 12/14/2014 Mental status change 01/08/2013 014 Overview: Transient mental status change; [facility], 12/09/12 Amenorrhea 06/18/2011 12/07/2015 Open wound of knee, leg (exc ept thigh), and ankle, without mention of complication 12/04/2009 1 SLEEP APNEA 01/28/2006 12/14/2014 HYPOTHYROIDISM NOS 01/28/2006 5 Morbid obesity 01/28/2006 12/13/2013 VENOUS INSUFFICIENCY 08/27/2005 015 Other malaise and fatigue 08/06/2005 Other dyspnea and respiratory abnormality 08/06/2005 12/13/2013 Other alteration of consciousness 08/06/2005 12/13/2013 WEIGHT GAIN, ABNORMAL 08/06/20052013 documented as of this encounter (statuses as of 10/10/2022) [facility]11-[facility]2016 History of Past illness Narrative* Problem Noted Date Diagnosed Date Resolved Date Venous stasis ulcers 01/16/2016 017 BMI 40.0-44.9, adult 12/14/2014 015 BMI 50.0-59.9, adult 10/11/2013 015 Other lymphedema 04/26/2013 12/14/2014 Mental status change 01/08/2013 014 Overview: Transient mental status change; [facility], 12/09/12 Amenorrhea 06/18/2011 12/07/2015 Open wound of knee, leg (exc ept thigh), and ankle, without mention of complication 12/04/2009 1 SLEEP APNEA 01/28/2006 12/14/2014 HYPOTHYROIDISM NOS 01/28/2006 5 Morbid obesity 01/28/2006 12/13/2013 VENOUS INSUFFICIENCY 08/27/2005 015 Other malaise and fatigue 08/06/2005 Other dyspnea and respiratory abnormality 08/06/2005 12/13/2013 Other alteration of consciousness 08/06/2005 12/13/2013 WEIGHT GAIN, ABNORMAL 08/06/20052013 documented as of this encounter (statuses as of 10/11/2022) [facility]11-[facility]2016 History of Past illness Narrative* Problem Noted Date Diagnosed Date Resolved Date Venous stasis ulcers 01/16/2016 017 BMI 40.0-44.9, adult 12/14/2014 015 BMI 50.0-59.9, adult 10/11/2013 015 Other lymphedema 04/26/2013 12/14/2014 Mental status change 01/08/2013 014 Overview: Transient mental status change; [facility], 12/09/12 Amenorrhea 06/18/2011 12/07/2015 Open wound of knee, leg (exc ept thigh), and ankle, without mention of complication 12/04/2009 1 SLEEP APNEA 01/28/2006 12/14/2014 HYPOTHYROIDISM NOS 01/28/2006 5 Morbid obesity 01/28/2006 12/13/2013 VENOUS INSUFFICIENCY 08/27/2005 015 Other malaise and fatigue 08/06/2005 Other dyspnea and respiratory abnormality 08/06/2005 12/13/2013 Other alteration of consciousness 08/06/2005 12/13/2013 WEIGHT GAIN, ABNORMAL 08/06/20052013 documented as of this encounter (statuses as of 10/24/2022) [facility]11-[facility]-2016 History of Past illness Narrative* Problem Noted Date Diagnosed Date Resolved Date Venous stasis ulcers 01/16/2016 017 BMI 40.0-44.9, adult 12/14/2014 015 BMI 50.0-59.9, adult 10/11/2013 015 Other lymphedema 04/26/2013 12/14/2014 Mental status change 01/08/2013 014 Overview: Transient mental status change; [facility], 12/09/12 Amenorrhea 06/18/2011 12/07/2015 Open wound of knee, leg (exc ept thigh), and ankle, without mention of complication 12/04/2009 1 SLEEP APNEA 01/28/2006 12/14/2014 HYPOTHYROIDISM NOS 01/28/2006 5 Morbid obesity 01/28/2006 12/13/2013 VENOUS INSUFFICIENCY 08/27/2005 015 Other malaise and fatigue 08/06/2005 Other dyspnea and respiratory abnormality 08/06/2005 12/13/2013 Other alteration of consciousness 08/06/2005 12/13/2013 WEIGHT GAIN, ABNORMAL 08/06/20052013 documented as of this encounter (statuses as of 10/25/2022) [facility]11-[facility]-2016 History of Past illness Narrative* Problem Noted Date Diagnosed Date Resolved Date Venous stasis ulcers 01/16/2016 017 BMI 40.0-44.9, adult 12/14/2014 015 BMI 50.0-59.9, adult 10/11/2013 015 Other lymphedema 04/26/2013 12/14/2014 Mental status change 01/08/2013 014 Overview: Transient mental status change; [facility], 12/09/12 Amenorrhea 06/18/2011 12/07/2015 Open wound of knee, leg (exc ept thigh), and ankle, without mention of complication 12/04/2009 1 SLEEP APNEA 01/28/2006 12/14/2014 HYPOTHYROIDISM NOS 01/28/2006 5 Morbid obesity 01/28/2006 12/13/2013 VENOUS INSUFFICIENCY 08/27/2005 015 Other malaise and fatigue 08/06/2005 Other dyspnea and respiratory abnormality 08/06/2005 12/13/2013 Other alteration of consciousness 08/06/2005 12/13/2013 WEIGHT GAIN, ABNORMAL 08/06/20052013 documented as of this encounter (statuses as of 10/29/2022) [facility] History of Past illness Narrative* Problem Noted Date Diagnosed Date Resolved Date Venous stasis ulcers 01/16/2016 017 BMI 40.0-44.9, adult 12/14/2014 015 BMI 50.0-59.9, adult 10/11/2013 015 Other lymphedema 04/26/2013 12/14/2014 Mental status change 01/08/2013 014 Overview: Transient mental status change; [facility], 12/09/12 Amenorrhea 06/18/2011 12/07/2015 Open wound of knee, leg (exc ept thigh), and ankle, without mention of complication 12/04/2009 1 SLEEP APNEA 01/28/2006 12/14/2014 HYPOTHYROIDISM NOS 01/28/2006 5 Morbid obesity 01/28/2006 12/13/2013 VENOUS INSUFFICIENCY 08/27/2005 015 Other malaise and fatigue 08/06/2005 Other dyspnea and respiratory abnormality 08/06/2005 12/13/2013 Other alteration of consciousness 08/06/2005 12/13/2013 WEIGHT GAIN, ABNORMAL 08/06/20052013 documented as of this encounter (statuses as of 12/14/2022) [facility] History of Past illness Narrative* Problem Noted Date Diagnosed Date Resolved Date Venous stasis ulcers 01/16/2016 017 BMI 40.0-44.9, adult 12/14/2014 015 BMI 50.0-59.9, adult 10/11/2013 015 Other lymphedema 04/26/2013 12/14/2014 Mental status change 01/08/2013 014 Overview: Transient mental status change; [facility], 12/09/12 Amenorrhea 06/18/2011 12/07/2015 Open wound of knee, leg (exc ept thigh), and ankle, without mention of complication 12/04/2009 1 SLEEP APNEA 01/28/2006 12/14/2014 HYPOTHYROIDISM NOS 01/28/2006 5 Morbid obesity 01/28/2006 12/13/2013 VENOUS INSUFFICIENCY 08/27/2005 015 Other malaise and fatigue 08/06/2005 Other dyspnea and respiratory abnormality 08/06/2005 12/13/2013 Other alteration of consciousness 08/06/2005 12/13/2013 WEIGHT GAIN, ABNORMAL 08/06/20052013 documented as of this encounter (statuses as of 01/21/2023) [facility] History of Past illness Narrative* Problem Noted Date Diagnosed Date Resolved Date Venous stasis ulcers 01/16/2016 017 BMI 40.0-44.9, adult 12/14/2014 015 BMI 50.0-59.9, adult 10/11/2013 015 Other lymphedema 04/26/2013 12/14/2014 Mental status change 01/08/2013 014 Overview: Transient mental status change; [facility], 12/09/12 Amenorrhea 06/18/2011 12/07/2015 Open wound of knee, leg (exc ept thigh), and ankle, without mention of complication 12/04/2009 1 SLEEP APNEA 01/28/2006 12/14/2014 HYPOTHYROIDISM NOS 01/28/2006 5 Morbid obesity 01/28/2006 12/13/2013 VENOUS INSUFFICIENCY 08/27/2005 015 Other malaise and fatigue 08/06/2005 Other dyspnea and respiratory abnormality 08/06/2005 12/13/2013 Other alteration of consciousness 08/06/2005 12/13/2013 WEIGHT GAIN, ABNORMAL 08/06/20052013 documented as of this encounter (statuses as of 02/04/2023) [facility] History of Past illness Narrative* Problem Noted Date Diagnosed Date Resolved Date Venous stasis ulcers 01/16/2016 017 BMI 45.0-49.9, adult 02/09/2015 024 BMI 40.0-44.9, adult 12/14/2014 015 BMI 50.0-59.9, adult 10/11/2013 015 Other lymphedema 04/26/2013 12/14/2014 Mental status change 01/08/2013 014 Overview: Transient mental status change; [facility], 12/09/12 Amenorrhea 06/18/2011 12/07/2015 Open wound of knee, leg (exc ept thigh), and ankle, without mention of complication 12/04/2009 1 SLEEP APNEA 01/28/2006 12/14/2014 HYPOTHYROIDISM NOS 01/28/2006 5 Morbid obesity 01/28/2006 12/13/2013 VENOUS INSUFFICIENCY 08/27/2005 015 Other malaise and fatigue 08/06/2005 Other dyspnea and respiratory abnormality 08/06/2005 12/13/2013 Other alteration of consciousness 08/06/2005 12/13/2013 WEIGHT GAIN, ABNORMAL 08/06/20052013 documented as of this encounter (statuses as of 05/30/2023) [facility] History of Past illness Narrative* Problem Noted Date Diagnosed Date Resolved Date Venous stasis ulcers 01/16/2016 017 BMI 45.0-49.9, adult 02/09/2015 024 BMI 40.0-44.9, adult 12/14/2014 015 BMI 50.0-59.9, adult 10/11/2013 015 Other lymphedema 04/26/2013 12/14/2014 Mental status change 01/08/2013 014 Overview: Transient mental status change; [facility], 12/09/12 Amenorrhea 06/18/2011 12/07/2015 Open wound of knee, leg (exc ept thigh), and ankle, without mention of complication 12/04/2009 1 SLEEP APNEA 01/28/2006 12/14/2014 HYPOTHYROIDISM NOS 01/28/2006 5 Morbid obesity 01/28/2006 12/13/2013 VENOUS INSUFFICIENCY 08/27/2005 015 Other malaise and fatigue 08/06/2005 Other dyspnea and respiratory abnormality 08/06/2005 12/13/2013 Other alteration of consciousness 08/06/2005 12/13/2013 WEIGHT GAIN, ABNORMAL 08/06/20052013 documented as of this encounter (statuses as of 06/10/2023) [facility] History of Past illness Narrative* Problem Noted Date Diagnosed Date Resolved Date Venous stasis ulcers 01/16/2016 017 BMI 45.0-49.9, adult 02/09/2015 024 BMI 40.0-44.9, adult 12/14/2014 015 BMI 50.0-59.9, adult 10/11/2013 015 Other lymphedema 04/26/2013 12/14/2014 Mental status change 01/08/2013 014 Overview: Transient mental status change; [facility], 12/09/12 Amenorrhea 06/18/2011 12/07/2015 Open wound of knee, leg (exc ept thigh), and ankle, without mention of complication 12/04/2009 1 SLEEP APNEA 01/28/2006 12/14/2014 HYPOTHYROIDISM NOS 01/28/2006 5 Morbid obesity 01/28/2006 12/13/2013 VENOUS INSUFFICIENCY 08/27/2005 015 Other malaise and fatigue 08/06/2005 Other dyspnea and respiratory abnormality 08/06/2005 12/13/2013 Other alteration of consciousness 08/06/2005 12/13/2013 WEIGHT GAIN, ABNORMAL 08/06/20052013 documented as of this encounter (statuses as of 06/13/2023) [facility] + Plan note No data available for this section [facility] Donaldelisabet Doty Evaluation note* Diagnosis Prader-Willi syndrome- Primary SOB (shortness of breath) Shortness of breath Physical therapy evaluation, initial Other specified examination documented in this encounter [facility] note* Diagnosis Lymphedema- Primary Other lymphedema Prader-Willi syndrome documented in this encounter [facility] note* Diagnosis Skin ulcer of left thigh, limited to breakdown of skin (HCC)- Primary documented in this encounter [facility] note* Diagnosis Lymphedema Other lymphedema documented in this encounter [facility] note* Diagnosis Prader-Willi syndrome- Primary Skin ulcer, limited to breakdown of skin (HCC) Pedal edema Edema Mild persistent asthma without complication Unspecified asthma Obstructive sleep apnea syndrome Obstructive sleep apnea (adult) (pediatric) documented in this encounter [facility] note* Diagnosis Prader-Willi syndrome- Primary Lipid screening Screening for lipoid disorders Encounter for screening for diabetes mellitus Screening for diabetes mellitus Vitamin D deficiency Unspecified vitamin D deficiency Elevated blood sugar Other abnormal glucose Hypothyroidism, unspecified type documented in this encounter [facility] note* Diagnosis Obstructive sleep apnea syndrome- Primary Obstructive sleep apnea (adult) (pediatric) Encounter for immunization Need for other specified prophylactic vaccination against single bacterial disease Mild intermittent asthma without complication Unspecified asthma Acquired hypothyroidism Unspecified hypothyroidism Lymphedema of right lower extremity Lymphedema of left lower extremity Sleep deprivation Problems related to lack of adequate sleep documented in this encounter [facility] note* Diagnosis Lymphedema Other lymphedema documented in this encounter [facility] note* Diagnosis Bilateral chronic knee pain- Primary Pain in joint, lower leg Acute cough documented in this encounter [facility] note* Diagnosis Annual physical exam- Primary Routine general medical examination at a health care facility 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 Obstructive sleep apnea syndrome Obstructive sleep apnea (adult) (pediatric) Mild intermittent asthma without complication Unspecified asthma Acquired hypothyroidism Unspecified hypothyroidism Lymphedema of left lower extremity documented in this encounter [facility] note* Diagnosis 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 Bee allergy status Allergy to insects and arachnids documented in this encounter [facility] note* Diagnosis Strain of lumbar region, subsequent encounter [facility]* Diagnosis Strain of lumbar region, subsequent encounter [facility]* Diagnosis Medication management Encounter for long-term (current) use of other medications Acquired hypothyroidism Unspecified hypothyroidism documented in this encounter [facility] note* Diagnosis Lymphedema- Primary Other lymphedema Obstructive sleep apnea syndrome Obstructive sleep apnea (adult) (pediatric) Acquired hypothyroidism Unspecified hypothyroidism Mild intermittent asthma without complication Unspecified asthma documented in this encounter [facility] note* Diagnosis Bronchitis Bronchitis, not specified as acute or chronic [facility] Diagnosis 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 Bee allergy status Allergy to insects and arachnids documented in this [facility]* Diagnosis 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 Need for vaccination Need for prophylactic vaccination and inoculation against unspecified single disease Prader-Willi syndrome Obstructive sleep apnea syndrome Obstructive sleep apnea (adult) (pediatric) Acquired hypothyroidism Unspecified hypothyroidism Cellulitis of right lower extremity Cellulitis and abscess of leg, except foot Hypothyroidism, unspecified type- Primary Prader-Willi syndrome Obstructive sleep apnea syndrome Obstructive sleep apnea (adult) (pediatric) Routine health maintenance Routine general medical examination at a health care facility Morbid obesity, unspecified obesity type (HCC) Acquired hypothyroidism- Primary Unspecified hypothyroidism Need for vaccination Need for prophylactic vaccination and inoculation against unspecified single disease Obstructive sleep apnea syndrome Obstructive sleep apnea (adult) (pediatric) Prader-Willi syndrome Prediabetes Other abnormal glucose Mixed hyperlipidemia Weight gain, abnormal- Primary Abnormal weight gain 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 Obstructive sleep apnea syndrome Obstructive sleep apnea (adult) (pediatric) Prader-Willi syndrome Bee allergy status Allergy to insects and arachnids Cellulitis of left lower extremity- Primary Cellulitis and abscess of leg, except foot Pain of left lower extremity Edema, unspecified type documented [facility] Diagnosis 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 Need for vaccination Need for prophylactic vaccination and inoculation against unspecified single disease Prader-Willi syndrome Obstructive sleep apnea syndrome Obstructive sleep apnea (adult) (pediatric) Acquired hypothyroidism Unspecified hypothyroidism Cellulitis of right lower extremity Cellulitis and abscess of leg, except foot Hypothyroidism, unspecified type- Primary Prader-Willi syndrome Obstructive sleep apnea syndrome Obstructive sleep apnea (adult) (pediatric) Routine health maintenance Routine general medical examination at a health care facility Morbid obesity, unspecified obesity type (HCC) Acquired hypothyroidism- Primary Unspecified hypothyroidism Need for vaccination Need for prophylactic vaccination and inoculation against unspecified single disease Obstructive sleep apnea syndrome Obstructive sleep apnea (adult) (pediatric) Prader-Willi syndrome Prediabetes Other abnormal glucose Mixed hyperlipidemia Weight gain, abnormal- Primary Abnormal weight gain 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 Obstructive sleep apnea syndrome Obstructive sleep apnea (adult) (pediatric) Prader-Willi syndrome Bee allergy status Allergy to insects and arachnids Lymphedema- Primary Other lymphedema documented in this [facility] Diagnosis 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 Need for vaccination Need for prophylactic vaccination and inoculation against unspecified single disease Prader-Willi syndrome Obstructive sleep apnea syndrome Obstructive sleep apnea (adult) (pediatric) Acquired hypothyroidism Unspecified hypothyroidism Cellulitis of right lower extremity Cellulitis and abscess of leg, except foot Hypothyroidism, unspecified type- Primary Prader-Willi syndrome Obstructive sleep apnea syndrome Obstructive sleep apnea (adult) (pediatric) Routine health maintenance Routine general medical examination at a health care facility Morbid obesity, unspecified obesity type (HCC) Acquired hypothyroidism- Primary Unspecified hypothyroidism Need for vaccination Need for prophylactic vaccination and inoculation against unspecified single disease Obstructive sleep apnea syndrome Obstructive sleep apnea (adult) (pediatric) Prader-Willi syndrome Prediabetes Other abnormal glucose Mixed hyperlipidemia Weight gain, abnormal- Primary Abnormal weight gain 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 Obstructive sleep apnea syndrome Obstructive sleep apnea (adult) (pediatric) Prader-Willi syndrome Bee allergy status Allergy to insects and arachnids Left groin pain Abdominal pain, left lower quadrant [facility] Jose is a 40 y/o female with history of PWS. * She was last seen in clinic in June of 2020. * At that time retirement was observing food stealing behaviors. * Since last visit she moved in August of last year, though warehouse engineer is the same. * She does have a roommate. * She is present with warehouse engineer Anali today. * She goes to mom's house every other weekend. * HIstorically mom's food is not locked or limited. * Staff sends food home with her. * Home staff reports improved communication with mom. * Attends workshop weekdays from 9 am - 3 pm. * Organizes, activities, stands for periods. * Anthropometrics: * Weight: 226 pounds (with sweatshirt and shoes) * Weight History: * (06/29/20) 241.3 pounds (109.7 kg), 230% DBW * (11/19/19) 236 pounds (107.2 kg), 224% DBW * (07/06/19) 244 pounds * DBW: 47.7 kg, * Height: 4'8 * BMI: 50.2 kg/m2 * Staff does not weigh in house, but she sees PCP q3 months * Vitamins/Minerals/Supplements: * CertaVite MVI * FIsh oil (1000 mg) * Calcium + D (500/200) BID * Diet History: * Last recommendation was 800 kcals/day * B - breakfast sandwich (egg whites, hot sauce, mushrooms, peppers, 2 pieces 35 calorie bread, totalsandwich 200 calories) eaten at the same time as lunch * Coffee in a thermos 2 pkts sweet & low, 2 Tbsp creamer (wet) * L - likes crab and shrimp, sinhala chicken; salad; bread * S - after workshop, 100 calories or less pre-packaged; popcorn, goldfish, animal crackers, rice cakes * D - same as lunch * S - before bed, same * Exercise/Activity: * Last visit RD recommended indoor walking or exercise videos - not doing * Pain in her groin limiting activity - waiting on ultrasounds * Limited staff right now also so inability to go for walks * Estimated Needs: * 800-900 calories/day * 0.8 gm pro/kg DBW ( * 38gm) [id number] [address] Work Phone: History of Present illness Narrative* Food/Nutrition related history: Patient has a history of PWS. Also has a history of hypothyroidism. * Food Allergy/Intolerance: Patient has no food allergies. Patient has no food intolerance. * Mobility: * Physical Activity: 2 x week. * Comments: Gets physical activity when she goes to her workshops 2 x week; has recently been approved to walk outside on the street unsupervised, but has not started that yet. * Dietary Supplements: Vitamin/Mineral, vitamin D and fish oil * Height/Weight: significant weight change. has gained * 5 kg since Apr 2021. * Food/Nutrition Related History Patient gets 3 meals and 2 snacks daily; each meal is 200 kcal and eat snack is 100 kcal. * GI Symptoms: none. * Daily Nutritional Intake: 800 Kcal/day caloric intake composed of. * Diet: Follows Very Low Calorie diet for PWS. * Patient has been on 800 kcal diet for quiet some time. She has a history of weight fluctuation, butno calorie changes in her diet with any weight changes (gains or losses). She lives in a group homeand goes to see her mom every other weekend. When visiting her mom, the retirement packs her food and medicine for her to bring. Patient reports that her mom has a camera at home so she can monitor how much food Cristina gets when she is at her moms house. Cristina's warehouse engineer also reported that the fride, freezer and pantry at the retirement is locked and Cristina has no way of getting any outside food. She does currently take a MVI with Iron as well as Vit D and fish oil. Her most recent labs are from 2020. [facility] [address] [facility] Work Phone: History of Present illness Narrative* Food/Nutrition related history: Patient has a history of PWS. Also has a history of hypothyroidism. * Food Allergy/Intolerance: Patient has no food allergies. Patient has no food intolerance. * Mobility: * Physical Activity: 2 x week. * Comments: Gets physical activity when she goes to her workshops 2 x week; has recently been approved to walk outside on the street unsupervised, but has not started that yet. * Dietary Supplements: Vitamin/Mineral, vitamin D and fish oil * Height/Weight: significant weight change. has gained * 5 kg since Apr 2021. * Food/Nutrition Related History Patient gets 3 meals and 2 snacks daily; each meal is 200 kcal and eat snack is 100 kcal. Sample meal is below: * Crab * 2 slices of bread - 35 kcal/slice bread * salad with fat free dressing * -has asparagus or sauerkraut if she is still hungry * -warehouse engineer also reports that they do have things like mashed potatoes as well and thoes ingredients are out to help control calories. * GI Symptoms: none. * Daily Nutritional Intake: 800 Kcal/day caloric intake composed of. * Diet: Follows Very Low Calorie diet for PWS. * Patient has been on 800 kcal diet for quiet some time. She has a history of weight fluctuation, butno calorie changes in her diet with any weight changes (gains or losses). She lives in a group homeand goes to see her mom every other weekend. When visiting her mom, the retirement packs her food and medicine for her to bring. Patient reports that her mom has a camera at home so she can monitor how much food Cristina gets when she is at her moms house. Cristina's warehouse engineer also reported that the fride, freezer and pantry at the retirement is locked and Cristina has no way of getting any outside food. She does currently take a MVI with Iron as well as Vit D and fish oil. Her most recent labs are from 2020. [employer] Work Phone: [facility] for referral (narrative)* Outpatient Procedure (Urgent) - Closed Specialty Diagnoses / Procedures Referred By Hannah grimm [facility] Diagnoses Pain of left lower extremity Edema, unspecified type Procedures US LEG VEIN DVT UNL VAS LAB DUP-SCAN XTR VEINS UNILATERAL/LIMITED STUDY Elsie Kaplan APRN.CNP [address] [place] [address] [facility] [address] [place] [address] Referral ID Status Reason Start Date Expiration Date V isits Requested Visits Authorized [id number] Closed Auto-Generate d Referral 11/13/2023 11/12/2024 1 1 [facility] for referral (narrative)* Diagnostic Procedure Only (Routine) - Closed Specialty Diagnoses / Procedures Referred By Hannah grimm Referred To Contact [facility] Diagnoses Left groin pain Procedures US HIP LT US COMPL JOINT R-T W/IMAGE DOCUMENTATION Sherif Thakur MD [address] [place] [address] [place] [address] Referral ID Status Reason Start Date Expiration Date V isits Requested Visits Authorized [id number] Closed Auto-Generate d Referral 04/23/2021 05/23/2022 1 1 [facility] for visit Narrative* Diagnostic Procedure Only (Routine) - Closed Specialty Diagnoses / Procedures Referred By Hannah grimm Referred To Contact [facility] Diagnoses Left groin pain Procedures US HIP LT US COMPL JOINT R-T W/IMAGE DOCUMENTATION Sherif Thakur MD [address] [place] [address] [place] [address] Referral ID Status Reason Start Date Expiration Date V isits Requested Visits Authorized [id number] Closed Auto-Generate d Referral 04/23/2021 05/23/2022 1 1 [facility] Summary Purpose Family History No Family History Records Found Mother Name Dates Details No pertinent family history( V49.89, Z78.9) Status:Active Father Name Dates Details No pertinent family history( V49.89, Z78.9) Status:Active Unknown Family Member Name Dates Details No pertinent family history: Mother, Father(V49.89, Z78.9) Status:Active Unknown Family Member Name Dates Details No pertinent family history: Mother, Father(V49.89, Z78.9) Status:Active Unknown Family Member Name Dates Details No pertinent family history: Mother, Father(V49.89, Z78.9) Status:Active Unknown Family Member Name Dates Details No pertinent family history: Mother, Father(V49.89, Z78.9) Status:Active Unknown Family Member Name Dates Details No pertinent family history: Mother, Father(V49.89, Z78.9) Status:Active Unknown Family Member Name Dates Details No pertinent family history: Mother, Father(V49.89, Z78.9) Status:Active Advance Directives No Advanced Directives Records FoundNo Advanced Directives Records FoundNo Advanced Directives Records FoundNo Advanced Directives Records FoundNo Advanced Directives Records FoundNo Advanced Directives Records FoundNo Advanced Directives Records Found Chief Complaint Patient is here for a follow up visit for prader willi syndrome* Follow up * Accompanied by child care development specialist. Reason for Referral Specialty Diagnoses / Procedures Referred By Hannah grimm Referred To Contact [facility] Diagnoses Physical therapy evaluation, initial Procedures CONSULT TO PHYSICAL THERAPY PHYSICAL THERAPY EVALUATION HIGH COMPLEX 45 MINS Sherif Thakur MD [address] [place] [address] [facility] [address] [address] Referral ID Status Reason Start Date Expiration Date Visits Requested Visits Authorized [id number] Authorized PCP Requested Referral Auto-Generate d Referral 06/28/2021 06/28/2022 99 99 Specialty Diagnoses / Procedures Referred By Contac t Referred To Contact [facility] Diagnoses Prader-Willi syndrome SOB (shortness of breath) Procedures ECHO ECHO TTHRC R-T 2D W/WOM-MODE COMPL SPEC&COLR D Sherif Thakur MD [address] [place] [address] [facility] [address] [place] [address] Referral ID Status Reason Start Date Expiration Date Visits Requested Visits Authorized [id number] Authorized Auto-Generat ed Referral 06/28/2021 06/28/2022 1 1 Specialty Diagnoses / Procedures Referred By Contac t Referred To Contact [facility] Diagnoses Lymphedema Procedures CONSULT TO LYMPHEDEMA THERAPY OFFICE/OUTPATIENT [facility] MDM 60 MINUTES Sherif Thakur MD [address] [place] [address] [facility] [address] [address] Referral ID Status Reason Start Date Expiration Date Visits Requested Visits Authorized [id number] Authorized Auto-Generat ed Referral 11/18/2023 11/17/2024 99 99 Additional Source Comments INFORMATION SOURCE (unrecogn ized section and content) DATE CREATED AUTHOR 09/02/2017 [facility] DATE CREATED AUTHOR AUTHOR'S ORGANIZ ATION 02/16/2021 [facility] DATE CREATED AUTHOR AUTHOR'S ORGANIZ ATION 12/12/2022 [facility] DATE CREATED AUTHOR AUTHOR'S ORGANIZ ATION 12/12/2022 [facility] DATE CREATED AUTHOR AUTHOR'S ORGANIZ ATION 12/08/2023 [facility] DATE CREATED AUTHOR AUTHOR'S ORGANIZ ATION 12/24/2023 [facility] DATE CREATED AUTHOR AUTHOR'S ORGANIZ ATION 12/26/2023 [facility] Reason for Visit (unrecogniz ed section and content) Reason Comments Results Reason Comments Forms Reason Comments [facility] verbal order ne eded Reason Comments Recheck 2 month groin pain Reason Comments PT Order Question Reason Comments Order request Reason Comments Refill Request Reason Comments sores in groin X 1 week Reason Comments Home health update Reason Onset Date Comments Refill Request 09/20/2021 Reason Comments Recheck 4 month follow up Reason Comments Orders Reason Comments Patient Question Reason Comments Orders handicap placard rx Reason Comments Recheck 3 month Reason Comments Knee Pain B/L knee pain x 2 we eks Reason Comments Physical Reason Comments Orders Medication Administr ation Consent Reason Onset Date Comments Refill Request 07/18/2022 Reason Onset Date Comments Refill Request 08/26/2022 Reason Onset Date Comments Refill Request 10/23/2022 Reason Comments Medication Problem Reason Comments Recheck 3 month follow up Reason Onset Date Comments Refill Request 12/12/2022 Reason Onset Date Comments Refill Request 01/20/2023 Reason Comments Insurance Authorization Reason Onset Date Comments Refill Request 07/21/2023 Reason Onset Date Comments error 07/28/2023 Reason Onset Date Comments Refill Request 08/22/2023 Reason Onset Date Comments Refill Request 09/19/2023 Reason Comments recert orders Reason Comments Patient Update Reason Comments Recheck ER follow up, cellul itis completed AIB Reason Comments Follow Up Reason Onset Date Comments Refill Request 11/24/2023 Reason Comments recert patient for [facility] Reason Comments weight gain Reason Comments Medication Question Source Comments (unrecognize d section and content) In the event this informatio n is protected by the Federal Confidentiality of Alcohol and Drug Abuse Patient Records regulations: The Federal rules restrict any use of the information to criminally investigate or prosecute any alcohol or drug abuse patient.[facility] the event this information is protected by the Federal Confidentiality of Alcohol and Drug Abuse Patient Records regulations: The Federal rules restrict any use of the information to criminally investigate or prosecute any alcohol or drug abuse patient.[facility] the event this information is protected by the Federal Confidentiality of Alcohol and Drug Abuse Patient Records regulations: The Federal rules restrict any use of the information to criminally investigate or prosecute any alcohol or drug abuse patient.[facility] the event this information is protected by the Federal Confidentiality of Alcohol and Drug Abuse Patient Records regulations: The Federal rules restrict any use of the information to criminally investigate or prosecute any alcohol or drug abuse patient.[facility] the event this information is protected by the Federal Confidentiality of Alcohol and Drug Abuse Patient Records regulations: The Federal rules restrict any use of the information to criminally investigate or prosecute any alcohol or drug abuse patient.[facility] the event this information is protected by the Federal Confidentiality of Alcohol and Drug Abuse Patient Records regulations: The Federal rules restrict any use of the information to criminally investigate or prosecute any alcohol or drug abuse patient.[facility] the event this information is protected by the Federal Confidentiality of Alcohol and Drug Abuse Patient Records regulations: The Federal rules restrict any use of the information to criminally investigate or prosecute any alcohol or drug abuse patient.[facility] the event this information is protected by the Federal Confidentiality of Alcohol and Drug Abuse Patient Records regulations: The Federal rules restrict any use of the information to criminally investigate or prosecute any alcohol or drug abuse patient.[facility] the event this information is protected by the Federal Confidentiality of Alcohol and Drug Abuse Patient Records regulations: The Federal rules restrict any use of the information to criminally investigate or prosecute any alcohol or drug abuse patient.[facility] the event this information is protected by the Federal Confidentiality of Alcohol and Drug Abuse Patient Records regulations: The Federal rules restrict any use of the information to criminally investigate or prosecute any alcohol or drug abuse patient.[facility] the event this information is protected by the Federal Confidentiality of Alcohol and Drug Abuse Patient Records regulations: The Federal rules restrict any use of the information to criminally investigate or prosecute any alcohol or drug abuse patient.[facility] the event this information is protected by the Federal Confidentiality of Alcohol and Drug Abuse Patient Records regulations: The Federal rules restrict any use of the information to criminally investigate or prosecute any alcohol or drug abuse patient.[facility] the event this information is protected by the Federal Confidentiality of Alcohol and Drug Abuse Patient Records regulations: The Federal rules restrict any use of the information to criminally investigate or prosecute any alcohol or drug abuse patient.[facility] the event this information is protected by the Federal Confidentiality of Alcohol and Drug Abuse Patient Records regulations: The Federal rules restrict any use of the information to criminally investigate or prosecute any alcohol or drug abuse patient.[facility] the event this information is protected by the Federal Confidentiality of Alcohol and Drug Abuse Patient Records regulations: The Federal rules restrict any use of the information to criminally investigate or prosecute any alcohol or drug abuse patient.[facility] Center[facility] the event this information is protected by the Federal Confidentiality of Alcohol and Drug Abuse Patient Records regulations: The Federal rules restrict any use of the information to criminally investigate or prosecute any alcohol or drug abuse patient.[facility] Center[facility] the event this information is protected by the Federal Confidentiality of Alcohol and Drug Abuse Patient Records regulations: The Federal rules restrict any use of the information to criminally investigate or prosecute any alcohol or drug abuse patient.[facility] Center[facility] the event this information is protected by the Federal Confidentiality of Alcohol and Drug Abuse Patient Records regulations: The Federal rules restrict any use of the information to criminally investigate or prosecute any alcohol or drug abuse patient.[facility] Center[facility] the event this information is protected by the Federal Confidentiality of Alcohol and Drug Abuse Patient Records regulations: The Federal rules restrict any use of the information to criminally investigate or prosecute any alcohol or drug abuse patient.[facility] Center[facility] the event this information is protected by the Federal Confidentiality of Alcohol and Drug Abuse Patient Records regulations: The Federal rules restrict any use of the information to criminally investigate or prosecute any alcohol or drug abuse patient.[facility] Center[facility] the event this information is protected by the Federal Confidentiality of Alcohol and Drug Abuse Patient Records regulations: The Federal rules restrict any use of the information to criminally investigate or prosecute any alcohol or drug abuse patient.[facility] Center[facility] the event this information is protected by the Federal Confidentiality of Alcohol and Drug Abuse Patient Records regulations: The Federal rules restrict any use of the information to criminally investigate or prosecute any alcohol or drug abuse patient.[facility] CenterIn the event this information is protected by the Federal Confidentiality of Alcohol and Drug Abuse Patient Records regulations: The Federal rules restrict any use of the information to criminally investigate or prosecute any alcohol or drug abuse patient.[facility] CenterIn the event this information is protected by the Federal Confidentiality of Alcohol and Drug Abuse Patient Records regulations: The Federal rules restrict any use of the information to criminally investigate or prosecute any alcohol or drug abuse patient.[facility] CenterIn the event this information is protected by the Federal Confidentiality of Alcohol and Drug Abuse Patient Records regulations: The Federal rules restrict any use of the information to criminally investigate or prosecute any alcohol or drug abuse patient.[facility] CenterIn the event this information is protected by the Federal Confidentiality of Alcohol and Drug Abuse Patient Records regulations: The Federal rules restrict any use of the information to criminally investigate or prosecute any alcohol or drug abuse patient.[facility] CenterIn the event this information is protected by the Federal Confidentiality of Alcohol and Drug Abuse Patient Records regulations: The Federal rules restrict any use of the information to criminally investigate or prosecute any alcohol or drug abuse patient.[facility] CenterIn the event this information is protected by the Federal Confidentiality of Alcohol and Drug Abuse Patient Records regulations: The Federal rules restrict any use of the information to criminally investigate or prosecute any alcohol or drug abuse patient.[facility] CenterIn the event this information is protected by the Federal Confidentiality of Alcohol and Drug Abuse Patient Records regulations: The Federal rules restrict any use of the information to criminally investigate or prosecute any alcohol or drug abuse patient.[facility] CenterIn the event this information is protected by the Federal Confidentiality of Alcohol and Drug Abuse Patient Records regulations: The Federal rules restrict any use of the information to criminally investigate or prosecute any alcohol or drug abuse patient.[facility] CenterIn the event this information is protected by the Federal Confidentiality of Alcohol and Drug Abuse Patient Records regulations: The Federal rules restrict any use of the information to criminally investigate or prosecute any alcohol or drug abuse patient.[facility] CenterIn the event this information is protected by the Federal Confidentiality of Alcohol and Drug Abuse Patient Records regulations: The Federal rules restrict any use of the information to criminally investigate or prosecute any alcohol or drug abuse patient.[facility] CenterIn the event this information is protected by the Federal Confidentiality of Alcohol and Drug Abuse Patient Records regulations: The Federal rules restrict any use of the information to criminally investigate or prosecute any alcohol or drug abuse patient.[facility] CenterIn the event this information is protected by the Federal Confidentiality of Alcohol and Drug Abuse Patient Records regulations: The Federal rules restrict any use of the information to criminally investigate or prosecute any alcohol or drug abuse patient.[facility] CenterIn the event this information is protected by the Federal Confidentiality of Alcohol and Drug Abuse Patient Records regulations: The Federal rules restrict any use of the information to criminally investigate or prosecute any alcohol or drug abuse patient.[facility] CenterIn the event this information is protected by the Federal Confidentiality of Alcohol and Drug Abuse Patient Records regulations: The Federal rules restrict any use of the information to criminally investigate or prosecute any alcohol or drug abuse patient.[facility] CenterIn the event this information is protected by the Federal Confidentiality of Alcohol and Drug Abuse Patient Records regulations: The Federal rules restrict any use of the information to criminally investigate or prosecute any alcohol or drug abuse patient.[facility] CenterIn the event this information is protected by the Federal Confidentiality of Alcohol and Drug Abuse Patient Records regulations: The Federal rules restrict any use of the information to criminally investigate or prosecute any alcohol or drug abuse patient.[facility] CenterIn the event this information is protected by the Federal Confidentiality of Alcohol and Drug Abuse Patient Records regulations: The Federal rules restrict any use of the information to criminally investigate or prosecute any alcohol or drug abuse patient.[facility] CenterIn the event this information is protected by the Federal Confidentiality of Alcohol and Drug Abuse Patient Records regulations: The Federal rules restrict any use of the information to criminally investigate or prosecute any alcohol or drug abuse patient.[facility] CenterIn the event this information is protected by the Federal Confidentiality of Alcohol and Drug Abuse Patient Records regulations: The Federal rules restrict any use of the information to criminally investigate or prosecute any alcohol or drug abuse patient.[facility] CenterIn the event this information is protected by the Federal Confidentiality of Alcohol and Drug Abuse Patient Records regulations: The Federal rules restrict any use of the information to criminally investigate or prosecute any alcohol or drug abuse patient.[facility] CenterIn the event this information is protected by the Federal Confidentiality of Alcohol and Drug Abuse Patient Records regulations: The Federal rules restrict any use of the information to criminally investigate or prosecute any alcohol or drug abuse patient.[facility] CenterIn the event this information is protected by the Federal Confidentiality of Alcohol and Drug Abuse Patient Records regulations: The Federal rules restrict any use of the information to criminally investigate or prosecute any alcohol or drug abuse patient.[facility] CenterIn the event this information is protected by the Federal Confidentiality of Alcohol and Drug Abuse Patient Records regulations: The Federal rules restrict any use of the information to criminally investigate or prosecute any alcohol or drug abuse patient.[facility] CenterIn the event this information is protected by the Federal Confidentiality of Alcohol and Drug Abuse Patient Records regulations: The Federal rules restrict any use of the information to criminally investigate or prosecute any alcohol or drug abuse patient.[facility] CenterIn the event this information is protected by the Federal Confidentiality of Alcohol and Drug Abuse Patient Records regulations: The Federal rules restrict any use of the information to criminally investigate or prosecute any alcohol or drug abuse patient.[facility] CenterIn the event this information is protected by the Federal Confidentiality of Alcohol and Drug Abuse Patient Records regulations: The Federal rules restrict any use of the information to criminally investigate or prosecute any alcohol or drug abuse patient.[facility] CenterIn the event this information is protected by the Federal Confidentiality of Alcohol and Drug Abuse Patient Records regulations: The Federal rules restrict any use of the information to criminally investigate or prosecute any alcohol or drug abuse patient.[facility] CenterIn the event this information is protected by the Federal Confidentiality of Alcohol and Drug Abuse Patient Records regulations: The Federal rules restrict any use of the information to criminally investigate or prosecute any alcohol or drug abuse patient.[facility] CenterIn the event this information is protected by the Federal Confidentiality of Alcohol and Drug Abuse Patient Records regulations: The Federal rules restrict any use of the information to criminally investigate or prosecute any alcohol or drug abuse patient.[facility] CenterIn the event this information is protected by the Federal Confidentiality of Alcohol and Drug Abuse Patient Records regulations: The Federal rules restrict any use of the information to criminally investigate or prosecute any alcohol or drug abuse patient.[facility] CenterIn the event this information is protected by the Federal Confidentiality of Alcohol and Drug Abuse Patient Records regulations: The Federal rules restrict any use of the information to criminally investigate or prosecute any alcohol or drug abuse patient.[facility] CenterIn the event this information is protected by the Federal Confidentiality of Alcohol and Drug Abuse Patient Records regulations: The Federal rules restrict any use of the information to criminally investigate or prosecute any alcohol or drug abuse patient.[facility] CenterIn the event this information is protected by the Federal Confidentiality of Alcohol and Drug Abuse Patient Records regulations: The Federal rules restrict any use of the information to criminally investigate or prosecute any alcohol or drug abuse patient.[facility] CenterIn the event this information is protected by the Federal Confidentiality of Alcohol and Drug Abuse Patient Records regulations: The Federal rules restrict any use of the information to criminally investigate or prosecute any alcohol or drug abuse patient.[facility] CenterIn the event this information is protected by the Federal Confidentiality of Alcohol and Drug Abuse Patient Records regulations: The Federal rules restrict any use of the information to criminally investigate or prosecute any alcohol or drug abuse patient.[facility] CenterIn the event this information is protected by the Federal Confidentiality of Alcohol and Drug Abuse Patient Records regulations: The Federal rules restrict any use of the information to criminally investigate or prosecute any alcohol or drug abuse patient.[facility] CenterIn the event this information is protected by the Federal Confidentiality of Alcohol and Drug Abuse Patient Records regulations: The Federal rules restrict any use of the information to criminally investigate or prosecute any alcohol or drug abuse patient.[facility] CenterIn the event this information is protected by the Federal Confidentiality of Alcohol and Drug Abuse Patient Records regulations: The Federal rules restrict any use of the information to criminally investigate or prosecute any alcohol or drug abuse patient.[facility] Care Teams (unrecognized sec tion and content) Pedicab Driver Relationship Specialty Start Date End Date Sherif Thakur MD [address] [place] [address] PCP - General Internal Medicine 12/13/15 Pedicab Driver Relationship Specialty Start Date End Date Sherif Thakur MD [address] [place] [address] PCP - General Internal Medicine 12/13/15 Pedicab Driver Relationship Specialty Start Date End Date Sherif Thakur MD [address] [facility] [place] [address] PCP - General Internal Medicine 12/13/15 Pedicab Driver Relationship Specialty Start Date End Date Sherif Thakur MD [address] [place] [address] PCP - General Internal Medicine 12/13/15 Pedicab Driver Relationship Specialty Start Date End Date Sherif Thakur MD [address] [facility] [place] [address] PCP - General Internal Medicine 12/13/15 Pedicab Driver Relationship Specialty Start Date End Date Sherif Thakur MD [address] [place] [address] PCP - General Internal Medicine 12/13/15 Pedicab Driver Relationship Specialty Start Date End Date Sherif Thakur MD [address] [place] [address] PCP - General Internal Medicine 12/13/15 Pedicab Driver Relationship Specialty Start Date End Date Sherif Thakur MD [address] [place] [address] PCP - General Internal Medicine 12/13/15 Pedicab Driver Relationship Specialty Start Date End Date Sherif Thakur MD [address] [place] [address] PCP - General Internal Medicine 12/13/15 Pedicab Driver Relationship Specialty Start Date End Date Sherif Thakur MD [address] [place] [address] PCP - General Internal Medicine 12/13/15 Pedicab Driver Relationship Specialty Start Date End Date Sherif Thakur MD [address] [place] [address] PCP - General Internal Medicine 12/13/15 Pedicab Driver Relationship Specialty Start Date End Date Sherif Thakur MD [address] [place] [address] PCP - General Internal Medicine 12/13/15 Pedicab Driver Relationship Specialty Start Date End Date Sherif Thakur MD [address] [place] [address] PCP - General Internal Medicine 12/13/15 Pedicab Driver Relationship Specialty Start Date End Date Sherif Thakur MD [address] [place] [address] PCP - General Internal Medicine 12/13/15 Pedicab Driver Relationship Specialty Start Date End Date Sherif Thakur MD [address] [place] [address] PCP - General Internal Medicine 12/13/15 Pedicab Driver Relationship Specialty Start Date End Date Sherif Thakur MD [address] [place] [address] PCP - General Internal Medicine 12/13/15 Pedicab Driver Relationship Specialty Start Date End Date Sherif Thakur MD [address] [place] [address] PCP - General Internal Medicine 12/13/15 Pedicab Driver Relationship Specialty Start Date End Date Sherif Thakur MD [address] [place] [address] PCP - General Internal Medicine 12/13/15 Pedicab Driver Relationship Specialty Start Date End Date Sherif Thakur MD [address] [place] [address] PCP - General Internal Medicine 12/13/15 Pedicab Driver Relationship Specialty Start Date End Date Sherif Thakur MD [address] [place] [address] PCP - General Internal Medicine 12/13/15 Pedicab Driver Relationship Specialty Start Date End Date Sherif Thakur MD [address] [place] [address] PCP - General Internal Medicine 12/13/15 Pedicab Driver Relationship Specialty Start Date End Date Sherif Thakur MD [address] [place] [address] PCP - General Internal Medicine 12/13/15 Pedicab Driver Relationship Specialty Start Date End Date Sherif Thakur MD [address] [place] [address] PCP - General Internal Medicine 12/13/15 Pedicab Driver Relationship Specialty Start Date End Date Sherif Thakur MD [address] [place] [address] PCP - General Internal Medicine 12/13/15 Pedicab Driver Relationship Specialty Start Date End Date Sherif Thakur MD [address] [place] [address] PCP - General Internal Medicine 12/13/15 Pedicab Driver Relationship Specialty Start Date End Date Sherif Thakur MD [address] [place] [address] PCP - General Internal Medicine 12/13/15 Pedicab Driver Relationship Specialty Start Date End Date Sherif Thakur MD [address] [place] [address] PCP - General Internal Medicine 12/13/15 Pedicab Driver Relationship Specialty Start Date End Date Sherif Thakur MD [address] [place] [address] PCP - General Internal Medicine 12/13/15 Pedicab Driver Relationship Specialty Start Date End Date Sherif Thakur MD [address] [place] [address] PCP - General Internal Medicine 12/13/15 Pedicab Driver Relationship Specialty Start Date End Date Sherif Thakur MD [address] [place] [address] PCP - General Internal Medicine 12/13/15 Pedicab Driver Relationship Specialty Start Date End Date Sherif Thakur MD [address] [place] [address] PCP - General Internal Medicine 12/13/15 Pedicab Driver Relationship Specialty Start Date End Date Sherif Thakur MD [address] [place] [address] PCP - General Internal Medicine 12/13/15 Pedicab Driver Relationship Specialty Start Date End Date Sherif Thakur MD [address] [place] [address] PCP - General Internal Medicine 12/13/15 Pedicab Driver Relationship Specialty Start Date End Date Sherif Thakur MD [address] [place], [place] [address] PCP - General Internal Medicine 12/13/15 Pedicab Driver Relationship Specialty Start Date End Date Sherif Thakur MD [address] [place] [address] PCP - General Internal Medicine 12/13/15 FOR RECORDS PERTAINING TO PATIENTS WHO ARE OR HAVE BEEN ENROLLED IN A CHEMICAL DEPENDENCY/SUBSTANCEABUSE PROGRAM, SOME INFORMATION MAY BE OMITTED. This clinical summary was aggregated from multiple sources. Caution should be exercised in using it in the provision of clinical care. This summary normalizes information from multiple sources, and as a consequence, information in this document may materially change the coding, format and clinical context of patient data. In addition, data may be omitted in some cases. CLINICAL DECISIONS SHOULD BE BASED ON THE PRIMARY CLINICAL RECORDS. [employer]. provides no warranty or guarantee of the accuracy or completeness of information in this document.
--- NOTE | 2023-12-26 17:52 | EX.ED.DYSGE1 ---
HPI History of Present Illness Chief Complaint: Shortness of Breath Detail of Chief Complaint: Right-sided chest pain, shortness of breath, weight gain and recent ER visi Informant: patient Onset/Context/Timing Onset: Days Context: Gradual Onset Timing: Continuous Quality: Pain right side of the chest anteriorly, right shoulder region Current Severity: Mild Maximum Severity: Moderate Worsened by: Nothing Relieved by: Nothing Associated Symptoms Associated Symptoms: Shortness of breath and 8 pound weight gain this week in spite of increasin Narrative Narrative: Patient is a 43-year-old woman. She was seen on December 22. She was seen for diarrhea. The report was reviewed. Patient had normal white count as well as hemoglobin and platelet count. Basic metabolic panel was remarkable for an elevated BUN/creatinine ratio of 33:1. Since her visit here she has had increased weight gain of 8 pounds. Lasix has been increased. She does have history of obstructive sleep apnea. She has a BiPAP machine. She does not use oxygen with her BiPAP machine. Of note pulse ox was 80% on room air. She is presently on 2 L. 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 She is scheduled to see cardiology within the next week. [facility] . Patient has no history of heart failure or coronary artery disease. She does have a history of COPD. She states that her right ventricle is enlarged and she had a procedure done here. Will need to review prior records. There is no history of VTE. She denies leg pain or discoloration. She has had increased swelling in spite of the Lasix. The swelling is bilateral. Prior similar symptoms: No PFSH PFS Medical History (Updated 12/26/23 @ 19:[address] Cinthia Torres MD) COPD (chronic obstructive pulmonary disease) HTN (hypertension) Hypothyroidism Morbid obesity with body mass index (BMI) greater than or equal to 50 DACIA treated with BiPAP Prader-Willi syndrome Home Medications ?Medication ?Instructions ?Recorded ?Last Taken ?Type ammonium lactate 12 % topical cream 1 applicatio topical DAILY 10/26/13 12/26/23 History calcium 600 mg (as 1 ea PO BID 10/26/13 12/26/23 History carbonate)-vitamin D3 10 mcg (400 unit) tablet omega-3 fatty acids-fish oil 300 1 ea PO DAILY 10/26/13 12/26/23 History mg-500 mg capsule epinephrine 0.3 mg/0.3 mL 0.3 mg IM X1 PRN Anaphylaxis 06/01/16 Unknown History injection, auto-injector nystatin 100,000 unit/gram topical 1 applic topical BID 06/01/16 12/26/23 History powder clotrimazole 1 % topical cream 1 applic topical BID 04/08/17 12/26/23 History fluticasone propionate 50 50 mcg intranasal ONCE 04/08/17 12/26/23 History mcg/actuation nasal spray,suspension albuterol sulfate 90 mcg/actuation 2 puff inhalation Q6H PRN 05/22/21 Unknown History aerosol inhaler shortness of breath or wheezing potassium chloride 10 mEq 10 meq PO DAILY 05/22/21 12/26/23 History capsule,extended release norethindrone (contraceptive) 0.35 0.35 mg PO QDAY #84 tabs 06/02/23 12/26/23 Rx mg tablet (Arianna) furosemide 40 mg tablet (Lasix) 40 mg PO DAILY 5 days #5 tabs 10/31/23 12/26/23 Rx dicyclomine 10 mg capsule 20 mg (2 x 10 mg) PO TIDAC #20 12/23/23 12/26/23 Rx CAPSULES diphenoxylate-atropine 2.5 1 tab PO Q6H PRN diarrhea #14 tabs 12/23/23 Unknown Rx mg-0.025 mg tablet (Lomotil) levothyroxine 100 mcg tablet 100 mcg PO DAILY 12/26/23 12/26/23 History mometasone-formoterol HFA 100 2 inh inhalation BID 12/26/23 12/26/23 History mcg-5 mcg/actuation aerosol inhaler (Dulera) multivitamin-ferrous 1 tab PO DAILY 12/26/23 12/26/23 History fumarate-folic acid 18 mg-400 mcg tablet (A Thru Z Advanced Formula) ondansetron 4 mg disintegrating 4 mg PO Q8H PRN Nausea 12/26/23 12/26/23 History tablet Allergy/AdvReac Type Severity Reaction Status Date / Time insect venom (insect bites) Allergy Intermediate Itching Verified 12/26/23 17:06 phenytoin sodium (From Allergy Unknown Verified 12/26/23 17:06 Dilantin) phenytoin sodium extended Allergy Unknown Verified 12/26/23 17:06 (From Dilantin) venom-honey bee (bee venom Allergy Unknown Verified 12/26/23 17:06 (honey bee)) Family History (Updated 12/26/23 @ 19:[address] Cinthia Torres MD) Grandmother Diabetes Heart disease Hypertension Mother Diabetes Grandfather Hypertension Father No problems noted. Surgical History (Updated 12/26/23 @ 19:[address] Cinthia Torres MD) History of tonsillectomy and adenoidectomy Social History (Updated 12/26/23 @ 19:[address] Cinthia Torres MD) household members: none housing: other details: [facility]. Smoking Status: Never smoker alcohol intake: never substance use type: does not use caffeine: Yes frequency: daily seatbelt use: always do you feel safe at home: Yes additional social history: Louis Gimenez ROS ROS ED Constitutional Constitutional ED: Denies chills, fever(s), subjective or sweats Eyes Eyes: Denies blurry vision or change in vision ENT ENT ED: Denies ear pain, rhinorrhea or sore throat Cardiovascular Cardiovascular: Reports chest pain; Denies orthopnea, palpitations, paroxysmal nocturnal dyspnea or racing heartbeat Respiratory/Chest Respiratory/Chest: Reports dyspnea; Denies cough, dyspnea on exertion, orthopnea or paroxysmal nocturnal dyspnea Gastrointestinal Gastrointestinal: Denies abdominal pain, melena, nausea or vomiting Musculoskeletal Musculoskeletal: Denies arthralgias, back pain or myalgias Integumentary Denies rash Neurologic Neurologic: Denies headache(s) Endocrine Endocrinology: Denies cold intolerance or heat intolerance Hematologic/Lymphatic Hematologic/Lymphatic: Reports systems reviewed and no addt'l complaints, except as documented EXAM Physical Exam Const Vital Signs: 12/26/23 17:07 12/26/23 17:09 12/26/23 17:40 Temperature 96.1 F L Temperature Source Temporal Pulse Rate 81 Respiratory Rate 18 Respiratory Effort Respiratory Depth Respiratory Pattern Normal Blood Pressure 125/93 H Blood Pressure Mean 103 Blood Pressure Source Blood Pressure Position Blood Pressure Location Pulse Ox 80 95 Oxygen Delivery Method Room Air Nasal Cannula Oxygen Flow Rate (L/min) 2 Fraction of Inspired Oxygen (FIO2) 12/26/23 17:42 12/26/23 17:50 12/26/23 18:05 Temperature Temperature Source Pulse Rate 80 Respiratory Rate 16 Respiratory Effort Normal Respiratory Depth Normal Respiratory Pattern Normal Blood Pressure 112/95 H Blood Pressure Mean 100 Blood Pressure Source Blood Pressure Position Blood Pressure Location Pulse Ox 97 Oxygen Delivery Method Nasal Cannula Nasal Cannula Nasal Cannula Oxygen Flow Rate (L/min) 2 2 2 Fraction of Inspired Oxygen (FIO2) 12/26/23 18:46 12/26/23 18:46 12/26/23 18:55 Temperature Temperature Source Pulse Rate 70 Respiratory Rate 17 Respiratory Effort Respiratory Depth Respiratory Pattern Normal Blood Pressure 135/110 H Blood Pressure Mean 118 Blood Pressure Source Monitor Blood Pressure Position Semi-Fowlers Blood Pressure Location Right Forearm Pulse Ox 98 98 Oxygen Delivery Method Bi-pap Oxygen Flow Rate (L/min) Fraction of Inspired Oxygen (FIO2) 30 30 12/26/23 19:00 12/26/23 19:14 Temperature 96.7 F L Temperature Source Pulse Rate 78 65 Respiratory Rate 15 20 H Respiratory Effort Respiratory Depth Respiratory Pattern Blood Pressure 137/106 H 137/106 H Blood Pressure Mean 116 116 Blood Pressure Source Blood Pressure Position Blood Pressure Location Pulse Ox 96 98 Oxygen Delivery Method Room Air Oxygen Flow Rate (L/min) Fraction of Inspired Oxygen (FIO2) Positive well nourished and well developed Constitutional Narrative: BMI is greater than 40. Patient is in no obvious respiratory distress. She is not hypoxic on the 2 L by nasal cannula. She is not tachypneic presently and she is not tachycardic. Monitor reveals a narrow complex sinus rhythm rate of approximately 80. General Appearance ED: well developed HEENT Reports dry mucous membranes HEENT Narrative: Head is atraumatic normocephalic. Ears normal. Nares patent. Mouth ED: Yes dry mucous membranes Mouth: dry mucous membranes Eyes PERRL and EOMs intact bilaterally General Eye ED: Negative for pale conjunctiva or scleral icterus Neck no lymphadenopathy, supple and no JVD Chest Wall inspection of chest normal and palpation of chest normal Resp normal respiratory effort and clear to auscultation bilaterally Resp Narrative: Breath sounds are diminished. This is due to body habitus. Heart tones are also distant because of body habitus. Cardio regular rate, regular rhythm, S1 normal heart sound, S2 normal heart sound and no murmurs GI GI Narrative: Abdomen is soft flabby nontender. Unable to appreciate mass or paraspinal megaly due to body habitus. Back/Spine no CVA tenderness Extremity General Extremety ED: Yes edema General Extremity: edema Neuro oriented x3, CN's II-XII intact bilaterally and no sensory deficits noted Motor Exam: strength 5/5 throughout Psych mental status grossly normal MDM MDM MDM Narrative Medical decision making narrative: With right-sided chest pain, hypoxia recent viral infection will need to entertain possibility of viral pneumonia versus bacterial pneumonia. With the history of weight gain in spite of increase in Lasix 1 needs to consider cardiac ischemia and CHF. Will obtain EKG, chest x-ray, CBC, electrolyte panel, troponin and BNP. ABG was obtained to assess acid-base status and CO2. Lab Data Lab results narrative: Electrolyte panel is marked for mild hyperkalemia. Troponin is elevated at 771. BNP is elevated at 1051. Labs: Laboratory Results - last 24 hr 12/26/23 18:00 WBC 11.8 H RBC 4.44 Hgb 14.3 Hct 45.6 MCV 102.7 H MCH 32.2 H MCHC 31.4 L D RDW Std Deviation 50.9 H RDW Coeff of Denzel 13.4 Plt Count 163 MPV 11.1 Immature Gran % (Auto) 0.600 Neut % (Auto) 68.2 Lymph % (Auto) 19.1 Rutherford % (Auto) 10.5 H Eos % (Auto) 1.1 Baso % (Auto) 0.5 Absolute Neuts (auto) 8.0 H Absolute Lymphs (auto) 2.25 Nucleated RBC % 0.2 Sodium 140 Potassium 5.4 H Chloride 108 H Carbon Dioxide 30.0 Anion Gap 3 L BUN 30 H Creatinine 0.91 Estim Creat Clear Calc 104.50 Est GFR (MDRD) Af Amer 87 Est GFR (MDRD) Non-Af 72 BUN/Creatinine Ratio 32.8 H Glucose 99 Lactic Acid 1.3 Calcium 8.6 Total Bilirubin 0.30 AST 69 H ALT 65 H Alkaline Phosphatase 101 Troponin I High Sens 771 H* B-Natriuretic Peptide 1051.3 H Total Protein 6.8 Albumin 3.1 L Globulin 3.7 Albumin/Globulin Ratio 0.8 L ABG Data Attestation: I personally reviewed and interpreted this ABG as follows: Interpretation: This represents a VBG. Patient has acute on chronic CO2 retention and has a acidosis with pH of 7. 2 5, pCO2 68, pO2 28, bicarb 30.2, base excess 3.0 with a 42% saturation. Order was placed for BiPAP and she has acute hypercapnia ABG results: ABG 12/26/23 18:35 Specimen Type KIMBERLY Sample Site Not entered O2 % 2.0 VBG pH 7.25 L VBG pO2 28 VBG HCO3 30 H VBG Total CO2 32 VBG O2 Sat (Calc) 42 L VBG Base Excess 3 POC Mix VBG pCO2 Pt Tmp 68.2 H O2 Delivery Device Cannula Radiography Chest X-Ray - ED: 2 View and Read by ED Physician (Patient has poor respiratory volume. X-ray is limited due to body habitus. Patient has findings that are concerning for congestive heart failure and probable pulmonary hypertension. Since she has had weight gain and clinically she is in heart failure she was started on nitro drip.) Diagnostic Testing: Clinical Impression(s) from Imaging Studies Chest X-Ray 12/26/23 18:30 IMPRESSION: Probable congestive failure. Cannot definitively exclude underlying pneumonia Electronically Signed: Sathish Ordaz MD at 18:53 EDT , EKG Initial EKG: Attestation: I personally reviewed and interpreted this EKG as follows: Interpretation: Sinus Rhythm (Rate is 75. MI interval is under 24 ms per cures duration 74 ms. QT duration 4 to 38 ms. [place] is normal. There is ischemic changes noted in the inferior and anterior leads with symmetrically inverted T waves. There is a biphasic T wave in lead II. Will need to compare to prior.) Prior: Changed (The EKG changes are new from prior dated February 07, 2015.) Management Discussion w/another healthcare provider: Hospitalist (Will page hospitalist after speak with Dr. Bond for admission to ICU.) and Manual Arts Therapy Teacher (Dr. Chávez who is on-call for cardiology was paged to inform about patient and discuss anticoagulation.) Treatment and Re-Evaluation :: Dr. Bond would like echo ordered to be done in the morning and agrees with anticoagulation with heparin. Critical Care Time Critical Care Time: Yes Critical care time (excluding procedures): 30-74 minutes (37), Including time spent: (History, physical, documentation, review of recent ER records, prior records and prior images), Discussing w/Patient &/or Family/Donor Services Technician, Discussing w/Consultants, Arranging Admission or Transfer and Performing Direct Patient Care at Bedside Discharge Plan Dx/Rx/DC Orders Clinical Impression: Acute respiratory failure with hypoxia and hypercapnia, Prader-Willi syndrome, New onset of congestive heart failure, Abnormal ECG, Morbid obesity with body mass index (BMI) greater than or equal to 50, Non-ST elevated myocardial infarction (non-STEMI) Disposition Disposition: Acute Care Hospital [facility]
[2023-12-26 18:17] LABS: Absolute Lymphocyte Count 2.25 X10^3/uL (0.83-4.51); Basophil# 0.06 X10^3/uL; Basophil% 0.5 % (0-1); Eosinophil# 0.13 X10^3/uL; Eosinophils% 1.1 % (0-5); Hematocrit 45.6 % (37-47); Hemoglobin 14.3 g/dL (12.0-15.0); Lymphocyte # 2.25 X10^3/ul (0.83-4.51); Lymphocyte % 19.1 % (19-41); Mean Corp Hgb Conc 31.4 g/dL (32-36); Mean Corpuscular Hgb 32.2 pg (27.0-32.0); Mean Corpuscular Volume 102.7 fL (81-99); Mean Platelet Vol. 11.1 fl (6.2-12.0); Monocyte# 1.24 X10^3/uL; Monocyte% 10.5 % (0-10); NRBC Flagged by Analyzer 0.2 % (0-5); Neutrophil # 8.02 X10^3/uL (2.7-7.7); Neutrophil % 68.2 % (47-70); Platelet Count 163 K/mm3 (150-450); RBC Distribution Width CV 13.4 % (11.6-14.6); RBC Distribution Width SD 50.9 fl (35.1-43.9); Red Blood Count 4.44 M/mm3 (4.2-5.4); White Blood Count 11.8 K/mm3 (4.4-11.0)
--- NOTE | 2023-12-26 18:30 | RAD_ITS ---
STUDY: X-RAY CHEST REASON FOR EXAM: Female, 43 years old. hypoxia, weight gain TECHNIQUE: PA and lateral COMPARISON: February 07, 2015 FINDINGS: Diffuse bilateral perihilar infiltrates or pulmonary edema. There is no demonstrated pleural abnormality. Heart is enlarged. Normal mediastinum and jennie. Normal visualized pulmonary arteries. Normal visualized aortic arch and descending thoracic aorta. Normal visualized thoracic spine. Normal visualized ribs, clavicles, and shoulders. There is no demonstrated abnormality of the visualized soft tissue structures of the upper abdomen. RAD/Chest PA and Lateral IMPRESSION: Probable congestive failure. Cannot definitively exclude underlying pneumonia Electronically Signed: Sathish Ordaz MD at 18:53 EDT ,
[2023-12-26 18:39] LABS: Blood Gas Specimen Type VEN; O2 Delivery Device Cannula; SITE Not entered; VBG BASE EXCESS 3 mmol/L (-1.0-3.5); VBG Bicarbonate 30 mmol/L (22-26); VBG PO2 28 mmHg (25-40); VBG SO2 42 % (50-70); VBG TCO2 32 mmol/L (23-33); VBG pCO2 68.2 mmHg (41-51); VBG pH 7.25 (7.32-7.42)
[2023-12-26 18:48] LABS: BNP,B-Type NATRIURETIC PEPTIDE 1051.3 pg/mL (0-100)
[2023-12-26 18:54] LABS: Lactic Acid 1.3 mmol/L (0.4-1.9)
[2023-12-26] MEDS: Nitroglycerin Infusion 250 ML 3 MG CONT INF (18:55)
[2023-12-26 18:58] LABS: ALB/GLOB Ratio 0.8 RATIO (0.9-2.4); AST(SGOT) 69 U/L (15-37); Alanine Aminotransfer ALT/SGPT 65 U/L (13-56); Albumin, Serum 3.1 g/dL (3.2-5.0); Alkaline Phosphatase 101 U/L (45-117); Anion Gap 3 (5-15); BUN 30 mg/dL (7-18); BUN/Creat Ratio 32.8 RATIO (10-20); Calcium,Total 8.6 mg/dL (8.5-10.1); Chloride 108 mmol/L (98-107); Creatinine, Serum 0.91 mg/dL (0.55-1.02); EST Glomerular Filtration Rate 72 mL/min (>60); Est Glom Filt Rate - Afr Amer 87 mL/min (>60); Globulin 3.7 g/dL (2.2-4.2); Glucose 99 mg/dL (74-106); Potassium 5.4 mmol/L (3.5-5.1); Protein, Total 6.8 g/dL (6.4-8.2); Sodium Level 140 mmol/L (136-145); Troponin-I HS 771 pg/mL (3.0-54.0)
--- NOTE | 2023-12-26 19:18 | HP.PCM.HOS_ITS ---
HPI - General General Date of Admission: 12/26/23 Date of Service: 12/26/23 Chief Complaint: Dyspnea, orthopnea, weight gain, chest pain, lower swelling. HPI Narrative The patient is a 43 y/o F w/ PMHx: RV enlargement, Hypothyroidism, HTN, COPD with Allergic rhinitis, Morbid Obesity, Prader-Willi Syndrome who presents to the [facility] ED on 12/26/23 with history of onset right sided chest discomfort with dyspnea as well as recent weight gain with chest discomfort reported in the chest anteriorly in the right shoulder region mild to moderate in nature with worsening shortness of breath, worse with exertion with an 8 pound weight gain despite increasing on diuresis with concurrent lower extremity swelling prompting ventral ED evaluation be cautious. 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 When discussing patient chest discomfort she has trouble discerning a numerical value to it but from discussions and description seems to be more sharp and pressure-like in sensation and she notes that it has improved. Workup in the ED included T96.1, heart rate 81, BP 125/93, respiratory rate 18, initially noted to be 80% on room air with improvement to 97% on 2 L eventually transition to BiPAP 98% on 30% FiO2, most recent repeat vital signs heart rate 78, BP 137/106, respiratory rate 15, 96% on BIPAP, CBC [], VBG with pH 7.25, bicarb 30, O2 saturation 42%, VBG pCO2 68.2, CMP with potassium 5.4 noted to be moderately hemolyzed, chloride 108, BUN/creatinine 30/0.91, GFR 72, lactic acid 1.3, hepatic profile with AST/LT 69/65, troponin 771, BNP 1051.3, chest x-ray with evidence of congestive heart failure however inability to exclude underlying pneumonia concurrently, rapid SARS COVID/influenza/RSV PCR negative, EKG with sinus rhythm with ischemic changes noted in the inferior and anterior leads with symmetrically inverted T waves with a biphasic T wave in lead III change from previous however previous EKG remote from 02/2015. ED physician discussed case with cardiology Dr. Bond given concern for new onset heart failure and EKG changes as well as NSTEMI. In the ED patient initiated on nitroglycerin drip. [facility] Medical History COPD (chronic obstructive pulmonary disease) HTN (hypertension) Hypothyroidism Morbid obesity with body mass index (BMI) greater than or equal to 50 DACIA treated with BiPAP Prader-Willi syndrome Home Medications ?Medication ?Instructions ?Recorded ?Last Taken ?Type ammonium lactate 12 % topical cream 1 applicatio topical DAILY 10/26/13 12/26/23 History calcium 600 mg (as 1 ea PO BID 10/26/13 12/26/23 History carbonate)-vitamin D3 10 mcg (400 unit) tablet omega-3 fatty acids-fish oil 300 1 ea PO DAILY 10/26/13 12/26/23 History mg-500 mg capsule epinephrine 0.3 mg/0.3 mL 0.3 mg IM X1 PRN Anaphylaxis 06/01/16 Unknown History injection, auto-injector nystatin 100,000 unit/gram topical 1 applic topical BID 06/01/16 12/26/23 History powder clotrimazole 1 % topical cream 1 applic topical BID 04/08/17 12/26/23 History fluticasone propionate 50 50 mcg intranasal ONCE 04/08/17 12/26/23 History mcg/actuation nasal spray,suspension albuterol sulfate 90 mcg/actuation 2 puff inhalation Q6H PRN 05/22/21 Unknown History aerosol inhaler shortness of breath or wheezing potassium chloride 10 mEq 10 meq PO DAILY 05/22/21 12/26/23 History capsule,extended release norethindrone (contraceptive) 0.35 0.35 mg PO QDAY #84 tabs 06/02/23 12/26/23 Rx mg tablet (Arianna) furosemide 40 mg tablet (Lasix) 40 mg PO DAILY 5 days #5 tabs 10/31/23 12/26/23 Rx dicyclomine 10 mg capsule 20 mg (2 x 10 mg) PO TIDAC #20 12/23/23 12/26/23 Rx CAPSULES diphenoxylate-atropine 2.5 1 tab PO Q6H PRN diarrhea #14 tabs 12/23/23 Unknown Rx mg-0.025 mg tablet (Lomotil) levothyroxine 100 mcg tablet 100 mcg PO DAILY 12/26/23 12/26/23 History mometasone-formoterol HFA 100 2 inh inhalation BID 12/26/23 12/26/23 History mcg-5 mcg/actuation aerosol inhaler (Dulera) multivitamin-ferrous 1 tab PO DAILY 12/26/23 12/26/23 History fumarate-folic acid 18 mg-400 mcg tablet (A Thru Z Advanced Formula) ondansetron 4 mg disintegrating 4 mg PO Q8H PRN Nausea 12/26/23 12/26/23 History tablet Allergy/AdvReac Type Severity Reaction Status Date / Time insect venom (insect bites) Allergy Intermediate Itching Verified 12/26/23 17:06 phenytoin sodium (From Allergy Unknown Verified 12/26/23 17:06 Dilantin) phenytoin sodium extended Allergy Unknown Verified 12/26/23 17:06 (From Dilantin) venom-honey bee (bee venom Allergy Unknown Verified 12/26/23 17:06 (honey bee)) Family History Grandmother Diabetes Heart disease Hypertension Mother Diabetes Grandfather Hypertension Father No problems noted. Surgical History History of tonsillectomy and adenoidectomy Social History household members: none housing: other details: shelter. Smoking Status: Never smoker alcohol intake: never substance use type: does not use caffeine: Yes frequency: daily seatbelt use: always do you feel safe at home: Yes additional social history: Louis Gimenez ROS ROS Narrative Admission Review of Systems: CONSTITUTIONAL: No weight loss, fever, chills, + weakness or fatigue. HEENT: Eyes: No visual loss, blurred vision, double vision or yellow sclerae. Ears, Nose, Throat: No hearing loss, sneezing, congestion, runny nose or sore throat. SKIN: No rash or itching, lesions, wounds. CARDIOVASCULAR: + Chest pain, edema, orthopnea. No palpitations, syncopal events. RESPIRATORY: + Dyspnea. No marked cough or sputum, wheezing, hemoptysis. GASTROINTESTINAL: + Recent episodes of decreased appetite, nausea without emesis, abdominal cramping and diarrhea, improving. No melena, BRBPR. GENITOURINARY: No dysuria, frequency, urgency or retention. NEUROLOGICAL: + Prader-Willi syndrome with underlying mental debility. No headache, dizziness, syncope, paralysis, ataxia, numbness or tingling in the extremities, focal weakness, change in bowel or bladder control, seizure. MUSCULOSKELETAL: + muscle, back pain, joint pain or stiffness. HEMATOLOGIC: No anemia, bleeding or bruising. LYMPHATICS: No enlarged nodes. No history of splenectomy. PSYCHIATRIC: No history of depression or anxiety. ENDOCRINOLOGIC: No reports of sweating, cold or heat intolerance. No polyuria or polydipsia. ALLERGIES: + History of allergic rhinitis. Vital Signs Vital Signs Vital Signs: 12/26/23 17:07 12/26/23 17:09 12/26/23 17:40 Temperature 96.1 F L Temperature Source Temporal Pulse Rate 81 Respiratory Rate 18 Respiratory Effort Respiratory Depth Respiratory Pattern Normal Blood Pressure 125/93 H Blood Pressure Mean 103 Blood Pressure Source Blood Pressure Position Blood Pressure Location Pulse Ox 80 95 Oxygen Delivery Method Room Air Nasal Cannula Oxygen Flow Rate (L/min) 2 Fraction of Inspired Oxygen (FIO2) 12/26/23 17:42 12/26/23 17:50 12/26/23 18:05 Temperature Temperature Source Pulse Rate 80 Respiratory Rate 16 Respiratory Effort Normal Respiratory Depth Normal Respiratory Pattern Normal Blood Pressure 112/95 H Blood Pressure Mean 100 Blood Pressure Source Blood Pressure Position Blood Pressure Location Pulse Ox 97 Oxygen Delivery Method Nasal Cannula Nasal Cannula Nasal Cannula Oxygen Flow Rate (L/min) 2 2 2 Fraction of Inspired Oxygen (FIO2) 12/26/23 18:46 12/26/23 18:46 12/26/23 18:55 Temperature Temperature Source Pulse Rate 70 Respiratory Rate 17 Respiratory Effort Respiratory Depth Respiratory Pattern Normal Blood Pressure 135/110 H Blood Pressure Mean 118 Blood Pressure Source Monitor Blood Pressure Position Semi-Fowlers Blood Pressure Location Right Forearm Pulse Ox 98 98 Oxygen Delivery Method Bi-pap Oxygen Flow Rate (L/min) Fraction of Inspired Oxygen (FIO2) 30 30 12/26/23 19:00 12/26/23 19:14 Temperature 96.7 F L Temperature Source Pulse Rate 78 65 Respiratory Rate 15 20 H Respiratory Effort Respiratory Depth Respiratory Pattern Blood Pressure 137/106 H 137/106 H Blood Pressure Mean 116 116 Blood Pressure Source Blood Pressure Position Blood Pressure Location Pulse Ox 96 98 Oxygen Delivery Method Room Air Oxygen Flow Rate (L/min) Fraction of Inspired Oxygen (FIO2) Weight Weight: 298 lb Body Mass Index (BMI) 58.1 Physical Exam Narrative Physical Examination: General: Awake, alert, oriented to self, place and recent events, notes feeling better on the BiPAP, remains cooperative, seated upright in the ED bed, fatigued, significant hypoxia/respiratory distress improved. Skin: Normal color, normal turgor, no icterus, no cyanosis. HEENT: AT/NC, EOMI, PERRLA, mildly dry MM, BiPAP in place, difficult to discern carotid bruits given referred sounds from BiPAP, difficult to discern JVD given very thickened neck. Lungs: Significantly diminished, distant breath sounds, rales at bases, mildly increased respiratory rate, BiPAP in place, no rhonchi or wheezing, patient reports feeling improved since initial ED arrival, respiratory distress is improved. Heart: Regular rate and rhythm; no gallop, rub audible. Abdomen: Soft, morbidly obese, NTTP, distant BS, difficult to discern distention HSM given habitus. Extremities: No cyanosis, no clubbing, significant pedal to knee 3+ pitting edema. Neurological: Patient awake, alert, oriented as noted, cognitive function with underlying impairment given underlying Prader-Willi syndrome, currently per family near baseline intact, improving, Pupils equally reactive to light and accommodation, cranial nerves grossly normal, moving all 4 extremities, no focal deficits, strength severely globally decreased secondary to acute presentation. Psychiatric: Affect appears flat, fatigued, respiratory distress is improving, no acute evidence of depressive or anxiety feelings. Results Lab / Micro Data 12/26/23 18:00 12/26/23 18:00 Labs: Laboratory Results - last 24 hr 12/26/23 18:00: WBC 11.8 H, RBC 4.44, Hgb 14.3, Hct 45.6, MCV 102.7 H, MCH 32.2 H, MCHC 31.4 L D, RDW Std Deviation 50.9 H, RDW Coeff of Denzel 13.4, Plt Count 163, MPV 11.1, Immature Gran % (Auto) 0.600, Neut % (Auto) 68.2, Lymph % (Auto) 19.1, [place] % (Auto) 10.5 H, Eos % (Auto) 1.1, Baso % (Auto) 0.5, Absolute Neuts (auto) 8.0 H, Absolute Lymphs (auto) 2.25, Nucleated RBC % 0.2, Sodium 140, P otassium 5.4 H, Chloride 108 H, Carbon Dioxide 30.0, Anion Gap 3 L, BUN 30 H, Creatinine 0.91, Estim Creat Clear Calc 104.50, Est GFR (MDRD) Af Amer 87, Est GFR (MDRD) Non-Af 72, BUN/Creatinine Ratio 32.8 H, Glucose 99, Lactic Acid 1.3, Calcium 8.6, Total Bilirubin 0.30, AST 69 H, ALT 65 H, Alkaline Phosphatase 101, Troponin I High Sens 771 H*, B-Natriuretic Peptide 1051.3 H, Total Protein 6.8, Albumin 3.1 L, Globulin 3.7, Albumin/Globulin Ratio 0.8 L Micro: Microbiology 12/26/23 18:08 Mucosa - Nose SARS-CoV-2, Influenza & RSV (PCR) - Final ABG Data ABG results: ABG 12/26/23 18:35 Specimen Type KIMBERLY Sample Site Not entered O2 % 2.0 VBG pH 7.25 L VBG pO2 28 VBG HCO3 30 H VBG Total CO2 32 VBG O2 Sat (Calc) 42 L VBG Base Excess 3 POC Mix VBG pCO2 Pt Tmp 68.2 H O2 Delivery Device Cannula Imaging Radiology Impression Chest X-Ray 12/26/23 18:30 IMPRESSION: Probable congestive failure. Cannot definitively exclude underlying pneumonia Electronically Signed: Sathish Ordaz MD at 18:53 EDT , Assessment & Plan Assessment/Plan (1) Non-ST elevated myocardial infarction (non-STEMI): (2) Abnormal ECG: (3) New onset of congestive heart failure: (4) Acute respiratory failure with hypoxia and hypercapnia: PLAN: Plan The patient is a 43 y/o F w/ PMHx: RV enlargement, Hypothyroidism, HTN, COPD with Allergic rhinitis, Morbid Obesity, Prader-Willi Syndrome who presents to the [facility] ED on 12/26/23 with history of onset right sided chest discomfort with dyspnea as well as recent weight gain with chest discomfort reported in the chest anteriorly in the right shoulder region mild to moderate in nature with worsening shortness of breath, worse with exertion with an 8 pound weight gain despite increasing on diuresis with concurrent lower extremity swelling prompting ventral ED evaluation be cautious. #1. Acute hypoxic and hypercapnic respiratory failure secondary to Acute Decompensated HF unclear type complicated by concurrent Acute NSTEMI, unclear exact type with concurrent ischemic EKG changes new from prior: Will admit to the ICU, will continue BIPAP, will continue NG drip initiated in the ED, will maintain on cardiac telemetry, continue to obtain cardiac enzyme series, obtain serial EKGs, continue IV lasix diuresis, monitor I/Os, maintain on intake restriction, continue medical therapy w/ addition of asa with full strength upon admission, statin, cautiously low dose BB, given COPD history but will defer to Cardiology discretion. Will obtain TSH and magnesium level. Will obtain ECHO. Initiate and continue heparin drip. Place TYLER wraps. Cardiology consulted, pending. Procalcitonin requested and will plan repeat AM CXR following overnight diuresis to assure no infiltrate but lower suspicion. #2. Mild transaminitis, acute: Admission AST/LT 69/65, total bilirubin 0.30, suspect likely secondary to #1, continue to trend CMP. #3. Prader-Willi syndrome: Unclear exact genotypic/phenotypic association, unclear if there is any behavioral disturbance component encouraged continued aggressive outpatient follow-up for any developmental issues/growth hormone deficiencies in addition to significant morbid obesity noted as well as continued evaluation for ongoing compliance with her BiPAP for underlying sleep apnea. #4. Hypertension: Holding oral regimen, continue IV Lasix diuresis as noted, PRN hydralazine. #5. Chronic COPD with allergic rhinitis: As noted given presentation we will continue BiPAP with wean as tolerated, holding home inhalers and in the interim we will transition to ATC budesonide therapy, PRN albuterol, HOB, IS parameters, continue fluticasone home regimen. #6. Hypothyroidism: Continue home synthroid regimen, TSH pending. #7. Morbid Obesity: Weight loss and lifestyle changes encouraged. #8. DACIA: Continue BiPAP as noted above. #9. Diarrhea, improving but still persistent: Patient with recent onset diarrheal illness with mild abdominal cramping and nausea, improving but still present, taking Imodium as well as Bentyl, will obtain C. difficile and enteric to be cautious as long-term outside industrial sales representative notes she had antibiotics recently. #10. DVT prophylaxis: Continue heparin drip as noted. #11. CODE status: Discussed CODE status with her family at length including difference between FULL code, DNR-CCA and DNR-CC status. Following discussions about the differences in these status, requested Full Code status. Charges/Coding Visit Charges Inpatient E&M: 46701 Init Hosp L3
[2023-12-26] MEDS: Heparin Injection (Vial) 5,000 UNIT/ML VIAL 4000 UNIT IV (19:58)
[2023-12-26] MEDS: HEPARIN/D5w 25,000 UNITS 25,000 UNITS/250 ML IV.SOLN. 10 UNITS CONT INF (19:59)
[2023-12-26 20:04] LABS: International Normalized Ratio 1.1
--- OUTSIDE RECORDS SUMMARY | 2023-12-26 20:33 | XMS RPT_ITS | CCD ---
Author Organization [facility] Care Team Providers Care Radiological Health Specialist Name Role Phone IMCA Unavailable Unavailable RICKI HIRSCH Unavailable Unavailable Smita Salgado Unavailable Unavailable Sherif Thakur Unavailable Unavailable Lexus Jackson Unavailable Unavailable Sherif Thakur Unavailable Sherif Thakur MD Primary Care Provider Sherif Thakur MD Primary Care Provider [phone] Sherif Thakur MD Primary Care Provider UNKNOWN, [...] DR SHERIF THAKUR MD Primary Care Physician SHERIF THAKUR Primary Care Unavailable TERESA YEUNG [...] Anti-Epileptic Agents (1 source) Phenytoin Drug Allergy [address] [place] [address] (20 sources) phenytoin; Translations: [PHENYTOIN SODIUM EXTENDED] Drug Allergy 6 [facility] Repository (2 sources) OTHER; Translations: [OTHER] Propensity to adverse reactions (disorder) 6 [facility] Rep[facility] (20 sources) apis mellifera venom; Translations: [BEE STING] allergy to substance 3 Anaphylaxis [facility] Work Phone: (20 sources) BEES,WASPS [Other] Propensity to adverse reactions 6 Swelling [facility] Work Phone: (20 sources) mosquitoes [Other] Propensity to adverse reactions 6 [facility] (1 source) Bee/Wasp/Ant venom Allergy to substance [facility] (1 source) Phenytoin; Translations: [phenytoin] Drug Allergy [facility] (1 source) misc non-codified allergy Allergy to substance [facility] Medications Current Medications Medication Drug Class(es) Dates [...] on above: Take 2 tablets by mo [facility] every 8 hours as needed for pain (For knee pain). [id number] 200 actuat albuterol 0.09 mg/actuat metered dose [...] 10 days. 20 tablet 11/13/2023 11/23/2023 Active [id number] 0.3 ml EPINEPHrine 1 mg/ml auto-injector (20 [...] g 10 07/09/2023 Active Start: 06-01-2015 Nystop [id number] UNIT/GM External Powder APPLY TOPICALLY TWICE DAILY TO AFFECTED AREA(S) Quantity: 0 Refills: 0 Ordered: 01-Jun-2015 DO Start : 01-Jun-2015 Active Comment on above: APPLY TOPICALLY TWIC E DAILY TO AFFECTED AREA(S) ON ABDOMINAL FOLDS *EXTERNAL USE ONLY* Kwwar-5-EQD-EPA-Fi sh Oil 1,000 mg (120 mg-180 mg) cap (20 sources) Start: 08-22-2023 take 1 capsule by mouth once daily Umvul-4-LVE-EPA-Fi sh Oil 1,000 mg (120 mg-180 mg) cap Take 1 capsule by mouth once daily. 31 capsule 08/22/2023 Active Start: 08-08-2022 End: 08-22-2023 take 1 capsule by mouth once daily Nffvy-7-BLF-EPA-Fish Oil 1,000 mg (120 mg-180 mg) cap TAKE ONE CAPSULE BY MOUTH DAILY 31 capsule 08/08/2022 08/22/2023 Discontinued Start: 08-08-2022 take 1 capsule by [facility] once daily Xdoay-1-ITX-EPA-Fish Oil 1,000 mg (120 mg-180 mg) cap [...] on above: Take 1 capsule by mo [facility] at bedtime as needed for cough. CERTAVITE-ANTIOXID [...] mouth once Vitamin D (Ergocalciferol) 1.25 MG (54637 UT) Oral Capsule Quantity: 0 Refills: 0 Ordered: 06-Dec-2016 DO Active Vitamin D (Ergoc alciferol) 1.25 MG (72125 UT) Oral Capsule Refills: 0 Active Vitamin D (Ergoc alciferol) 25208 UNIT Oral Capsule Refills: 0 Active Fish Oil-Idamay-3 Fatty Acids (FISH OIL) 340-1,000 mg cap (7 sources) Start: 08-21-2020 End: 08-15-2021 take 1 capsule by mouth once daily Fish Oil-Idamay-3 Fatty Acids (FISH OIL) 340-1,000 mg cap Take 1 capsule by mouth once daily. 31 capsule 11 08/21/2020 08/15/2021 Discontinued Start: 08-21-2020 take 1 capsule by mo uth once daily Fish Oil-Idamay-3 Fatty Acids (FISH OIL) 340-1,000 mg cap [...] BY MOUTH DAILY omega-3 acid ethyl esters (prison) 1000 mg oral capsule (1 source) Start: [...] Problem Cici grimm Migration; 2012-10-30; Moved to [facility] Feb 05 2013 9:10PM; Other connective tissue [...] (2 sources) Prader-Willi syndrome; 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 ([facility])] Onset: 12-04-2023 Past or Other Problems Problem [...] by Problem Cici Baugh; 2012-10-30; Moved to [facility] Feb 05 2013 9:10PM; Other nutritional; endocrine; [...] Test Name Value Interpretation Reference Range Facility [facility]2023 [facility] (INTMWS[facility] JOSE ABDUL ([id number]) 1980 F Date Time Provider Department 12/22/23 SHERIF THAKUR INTWS During your visit today, we recorded the following information about you: Annie Brand RN 12/22/2023 1:33 PM Signed Pharmacist @ [facility] calling to clarify orders for Furosemide [...] Please review and advise. RODRÍGUEZ Lopez Joy, APRN.[employer] 12/22/2023 1:41 PM Signed She is supposed to be taking both short term. Is there a way to get her in earlier then in 10 days? Thank you Elsie Kaplan APRN.[employer] María Avila MA 12/22/2023 1:49 PM Signed [...] 2 SPRAYS IN EACH NOSTRIL DAILY - Scxkx-4-FKI-EPA-Fish Oil 1,000 mg (120 mg-180 mg) cap [...] lymphedema [I89.0] (more content not included)... Normal [facility] .Auto Diffon 12-21-2023 Basophil, Absolute 0.0 10 3/mcL Normal 0.0-0.2 [facility] Comment on above: Performed By: #### C BC, ANEU, ADIFF, GFR, PBNP, BMP, TROPHS, MG, MDW #### [address] [address] Basophils/100 WBC (Bld) 0.3 % Normal 0.0-2.5 [facility] Comment on above: Performed By: #### C BC, ANEU, ADIFF, GFR, PBNP, BMP, TROPHS, MG, MDW #### [address] [address] Eosinophil, Absolute 0.2 10 3/mcL Normal 0.0-0.7 [facility] Comment on above: Performed By: #### C BC, ANEU, ADIFF, GFR, PBNP, BMP, TROPHS, MG, MDW #### [address] [address] Eosinophils/100 WBC (Bld) 1.9 % Normal 0.0-7.0 [facility] Comment on above: Performed By: #### C BC, ANEU, ADIFF, GFR, PBNP, BMP, TROPHS, MG, MDW #### [address] [address] Lymphocyte, Absolute 2.0 10 3/mcL Normal 0.9-4.3 [facility] Comment on above: Performed By: #### C BC, ANEU, ADIFF, GFR, PBNP, BMP, TROPHS, MG, MDW #### [address] [address] Lymphocytes/100 WBC (Bld) 17.4 % Low 20.0-40.0 [facility] Comment on above: Performed By: #### C BC, ANEU, ADIFF, GFR, PBNP, BMP, TROPHS, MG, MDW #### [address] [address] Monocyte, Absolute 1.2 10 3/mcL Normal 0.1-1.4 [facility] Comment on above: Performed By: #### C BC, ANEU, ADIFF, GFR, PBNP, BMP, TROPHS, MG, MDW #### [address] [address] Monocytes/100 WBC (Bld) 10.5 % Normal 2.0-13.0 [facility] Comment on above: Performed By: #### C BC, ANEU, ADIFF, GFR, PBNP, BMP, TROPHS, MG, W #### [address] [address] Neutrophils/100 WBC (Bld) 69.9 % Normal 50.0-75.0 [facility] Comment on above: Performed By: #### C BC, ANEU, ADIFF, GFR, PBNP, BMP, TROPHS, MG, KYLIE #### [address] [address] .GFRon 12-21-2023 GFR 169 ml/min/1.73sqm Normal [facility] Comment on above: Result Comment: GFR [...] GFR, PBNP, BMP, TROPHS, MG, MDW #### [address] [address] GFR Non- 139 ml/min/1.73sqm Normal [facility] Comment on above: Result Comment: GFR [...] GFR, PBNP, BMP, TROPHS, MG, MDW #### [address] [address] .MDWon 12-21-2023 Monocyte Distribution Width 20.26 High 0.00-20.00 [facility] Comment on above: Result Comment: For adults in ED, MDW>20.0 may be associated with a higher risk of sepsis during the first 12hrs of hospital admission Performed By: #### C BC, ANEU, ADIFF, GFR, PBNP, BMP, TROPHS, MG, MDW #### [address] [address] .NEUABSon 12-21-2023 Neutrophil, Absolute 8.1 10 3/mcL Normal 2.3-8.1 [facility] Comment on above: Performed By: #### C BC, ANEU, ADIFF, GFR, PBNP, BMP, TROPHS, MG, MDW #### [address] [address] BMPon 12-21-2023 BUN/Creatinine Ratio 31 ratio High 7-27 [facility] Comment on above: Performed By: #### C BC, ANEU, ADIFF, GFR, PBNP, BMP, TROPHS, MG, MDW #### [address] [address] Calcium [Mass/Vol] 9.1 mg/dL Normal 8.4-10.2 [facility] Comment on above: Performed By: #### C BC, ANEU, ADIFF, GFR, PBNP, BMP, TROPHS, MG, KYLIE #### [address] [address] Chloride [Moles/Vol] 104 mmol/L Normal 98-107 [facility] Comment on above: Performed By: #### C BC, ANEU, ADIFF, GFR, PBNP, BMP, TROPHS, MG, KYLIE #### [address] [address] CO2 [Moles/Vol] 34 mmol/L High 22-29 [facility] Comment on above: Performed By: #### C BC, ANEU, ADIFF, GFR, PBNP, BMP, TROPHS, MG, KYLIE #### [address] [address] Creatinine [Mass/Vol] 0.49 mg/dL Low 0.55-1.02 [facility] Comment on above: Result Comment: Test ing performed on Siemens Dimension EXL analyzer using a modified kinetic Melanie technique. Performed By: #### C BC, ANEU, ADIFF, GFR, PBNP, BMP, TROPHS, MG, KYLIE #### [address] [address] Electrolyte Balance 1.0 mEq/L Low 4.0-15.0 [facility] Comment on above: Performed By: #### C BC, ANEU, ADIFF, GFR, PBNP, BMP, TROPHS, MG, KYLIE #### [address] [address] Glucose [Mass/Vol] 96 mg/dL Normal 70-105 [facility] Comment on above: Performed By: #### C BC, ANEU, ADIFF, GFR, PBNP, BMP, TROPHS, MG, KYLIE #### [address] [address] Potassium [Moles/Vol] 4.7 mmol/L Normal 3.5-5.1 [facility] Comment on above: Performed By: #### C BC, ANEU, ADIFF, GFR, PBNP, BMP, TROPHS, MG, MDW #### [place] [address] Sodium [Moles/Vol] 139 mmol/L Normal 136-145 [facility] Comment on above: Performed By: #### C BC, ANEU, ADIFF, GFR, PBNP, BMP, TROPHS, MG, MDW #### [place] [address] Urea nitrogen [Mass/Vol] 15 mg/dL Normal 7-18 [facility] Comment on above: Performed By: #### C BC, ANEU, ADIFF, GFR, PBNP, BMP, TROPHS, MG, MDW #### [place] [address] CBCon 12-21-2023 Erythrocyte distribution width (RBC) [Ratio] 14.4 % Normal 11.5-15.5 [facility] Comment on above: Performed By: #### C BC, ANEU, ADIFF, GFR, PBNP, BMP, TROPHS, MG, MDW #### [place] [address] Hematocrit (Bld) [Volume fraction] 39.3 % Normal 34.0-46.0 [facility] Comment on above: Performed By: #### C BC, ANEU, ADIFF, GFR, PBNP, BMP, TROPHS, MG, MDW #### [place] [address] Hgb 12.6 G/dL Normal 12.0-16.0 [facility] Comment on above: Performed By: #### C BC, ANEU, ADIFF, GFR, PBNP, BMP, TROPHS, MG, MDW #### [place] [address] MCH (RBC) [Entitic mass] 32.2 pg Normal 27.0-33.0 [facility] Comment on above: Performed By: #### C BC, ANEU, ADIFF, GFR, PBNP, BMP, TROPHS, MG, MDW #### [address] [address] MCHC 32.1 G/dL Normal 32.0-36.0 [facility] Comment on above: Performed By: #### C BC, ANEU, ADIFF, GFR, PBNP, BMP, TROPHS, MG, MDW #### [address] [address] MCV (RBC) [Entitic vol] 100.2 fL High 80.0-99.0 [facility] Comment on above: Performed By: #### C BC, ANEU, ADIFF, GFR, PBNP, BMP, TROPHS, MG, MDW #### [address] [address] Platelet 147 10 3/mcL Low 150-450 [facility] Comment on above: Performed By: #### C BC, ANEU, ADIFF, GFR, PBNP, BMP, TROPHS, MG, MDW #### [address] [address] Platelet mean volume (Bld) [Entitic vol] 8.8 fL Normal 6.6-10.5 [facility] Comment on above: Performed By: #### C BC, ANEU, ADIFF, GFR, PBNP, BMP, TROPHS, MG, MDW #### [address] [address] RBC 3.92 10 6/mcL Low 4.10-5.30 [facility] Comment on above: Performed By: #### C BC, ANEU, ADIFF, GFR, PBNP, BMP, TROPHS, MG, MDW #### [address] [address] WBC 11.6 10 3/mcL High 4.5-10.8 [facility] Comment on above: Performed By: #### C BC, ANEU, ADIFF, GFR, PBNP, BMP, TROPHS, MG, MDW #### [address] [address] LABORATORYOrdered By: SYSTEM SYSTEM on 12-21-2023 Troponin I.cardiac DL <= 0.01 ng/mL [Mass/Vol] 22 ng/L Normal 0 - 51 ng/L AO ADM SS Comment on above: Interpretive Data: H igh Sensitive Troponin I Reference Ranges: Female: 0-51 ng/L Male: 0-76 ng/L Testing performed on [employer] using a homogeneous sandwich chemiluminescent immunoassay based on [employer] technology. Basophils (Bld) [#/Vol] 0.0 103/mcL Normal [...] ng/L Male: 0-76 ng/L Testing performed on [employer] using a homogeneous sandwich chemiluminescent immunoassay based on [employer] technology. Urea nitrogen [Mass/Vol] 15 mg/dL Normal 7 - 18 mg/dL AO ADM SS Urea nitrogen/Creatinine [Mass ratio] 31 ratio High 7 - 27 ratio AO ADM SS WBC (Bld) [#/Vol] 11.6 103/mcL High 4.5 - 10.8 10^3/mcL AO Workflow SS MGon 12-21-2023 Magnesium [Mass/Vol] 1.9 mg/dL Normal 1.8-2.4 [facility] Comment on above: Performed By: #### C BC, ANEU, ADIFF, GFR, PBNP, BMP, TROPHS, KYLIE SHEN #### [address] [address] PBNPon 12-21-2023 Natriuretic peptide B (Bld) [Mass/Vol] 449 pg/mL High 0-125 [facility] Comment on above: Result Comment: NT-p roBNP results of less than 300 pg/mL effectively rules out acute congestive heart failure with 99% negative predictive value. Performed By: #### C BC, ANEU, ADIFF, GFR, PBNP, BMP, TROPHS, KYLIE SHEN #### [address] [address] [facility] 12-21-2023 High Sensitivity Troponin I 22 ng/L Normal 0-51 [facility] Comment on above: Result Comment: High Sensitive Troponin I Reference Ranges: Female: 0-51 ng/L Male: 0-76 ng/L Testing performed on [employer] using a homogeneous sandwich chemiluminescent immunoassay based on [employer] technology. Performed By: #### C BC, ANEU, ADIFF, GFR, PBNP, BMP, TROPHS, KYLIE SHEN #### [address] [address] High Sensitivity Troponin I 20 ng/L Normal 0-51 [facility] Comment on above: Result Comment: High Sensitive Troponin I Reference Ranges: Female: 0-51 ng/L Male: 0-76 ng/L Testing performed on Dimension EXL using a homogeneous sandwich chemiluminescent immunoassay based on [employer] technology. Performed By: #### C BC, ANEU, ADIFF, GFR, PBNP, BMP, TROPHS, MGKYLIE #### [address] [address] XR CHEST 1 VIEWon 12-21-2023 XR CHEST [...] 12/21/2023 3:28:25 PM Ordering Provider: TABATHA PAGE [facility] [place] 12-18-2023 [facility] Telephone (Edfolio) JOSE ABDUL ([id number]) 1980 F Date Time Provider Department 12/18/23 SHERIF THAKUR [place] During your visit today, we recorded the following information about you: Erendira Stewart LPN 12/18/2023 2:27 PM Signed Shobha from [facility] states there were medications sent for pt yesterday Rah Turner RN 12/22/2023 9:49 AM Signed [facility]- phoned to report patient was seen in [place] ER on Friday12-21-23, with SOB. ER gave patient IV lasix and sent patient home. Reports patient is having stress in residential with another housemate, which is causing patient anxiety, and this was part of the problem, but patient has also been having problems with edema. This nurse phoned Shobha- [facility] to schedule ER f/u appt, and noted in 12-17-23 encounter, Lithograph Designer had ordered potassium 20 mg daily, and lasix 40 mg daily, until patient is seen. Asked Shobha how patient is doing on this dose. Shobha reports patient never received the medication, b/c it was sent to the wrong pharmacy, should have been sent to [facility]. Shobha did call pcp to report this (see message below), but never received the medication. Reports even if the medication is sent to [facility] today- they still will not receive it until Fri. Pended medications for [facility]. Please send geovanny. Shobha reports patient is doing fine today- and they are working on the problem with the housemate. Scheduled patient hosp f/u appt for 01-01-24. Elsie Kaplan APRN.OBED 12/22/2023 10:58 AM Signed Prescription Resent. Thank you Elsie Kaplan APRN.Teresa Foster RN 12/22/2023 11:35 AM Signed Called and left a voicemail for the [facility] to call back and ask for a [...] 2 SPRAYS IN EACH NOSTRIL DAILY - Uylvh-7-ECE-EPA-Fish Oil 1,000 mg (120 mg-180 mg) cap [...] Each once (more content not included)... [facility] (INTMWS) CHANTELLJOSE Hanna ([id number]) 1980 F Date Time Provider Department 12/17/23 SHERIF THAKUR INTMWS During your visit today, we recorded the following information about you: Rah Turner RN 12/17/2023 9:13 AM Addendum Clarence- [facility]- phoned with patient update: Reports pcp [...] Please advise and phone Clarence with reply: [phone] Elsie Kaplan APRN.OBED 12/17/2023 1:23 PM Signed Patient needs to be seen to evaluate why this is continuing to occur. Can increase lasix to 40mg and the potassium to 20mg both daily until seen. Thank you Elsie Kaplan APRN.Lillie Adame RN 12/17/2023 2:27 PM Signed Clarence called and notified of below , Clarence voices understanding. Clarence is going to pass this along to residential. Clarence asking if new scripts can be sent to [facility]? Please review and advise, RODRÍGUEZ Carnes [...] 2 SPRAYS IN EACH NOSTRIL DAILY - Vtawi-9-ONK-EPA-Fish Oil 1,000 mg (120 mg-180 mg) cap [...] syndrome [Q87.11] (more content not included)... Normal [facility] Tal 12-12-2023 LOU Telephone (INTMWS) JOSE ABDUL ([id number]) 1980 F Date Time Provider Department 12/12/23 SHERIF THAKUR During your visit today, we recorded the following information about you: Candelaria Ball LPN 12/12/2023 8:10 AM Signed Clarence from [facility] calling patient weight this morning was [...] if no improvement. Thank you Elsie Kaplan APRN.Ashley Luna LPN 12/12/2023 1:08 PM Signed [...] 2 SPRAYS IN EACH NOSTRIL DAILY - Wvfmc-7-XON-EPA-Fish Oil 1,000 mg (120 mg-180 mg) cap [...] knee, le (more content not included)... Normal [facility] 12-05-2023 [facility] Telephone (INTMWS) JOSE ABDUL ([id number]) 1980 F Date Time Provider Department 12/05/23 SHERIF THAKUR INTWS During your visit today, we recorded the following information about you: Candelaria Ball LPN 12/05/2023 9:23 AM Signed Clarence from [facility] calling time for recert longterm services. Patient residential was purchased by another company, nurses will [...] Assessed Reason for Visit: recert patient for longterm service [Other] Prescriptions as of 12/08/2023 - [...] 2 SPRAYS IN EACH NOSTRIL DAILY - Liwrm-1-MGK-EPA-Fish Oil 1,000 mg (120 mg-180 mg) cap [...] 12/14/2014 BM (more content not included)... Normal [facility] CNOVon 11-18-2023 CNOV Office Visit (INTMWS ) JOSE ABDUL ([id number]) 1980 F Date Time Provider Department 11/18/23 [...] T) fluticasone (FLONASE) 50 mcg/actuation nasal spray Vyqbm-1-HRA-EPA-Fish Oil 1,000 mg (120 mg-180 mg) cap [...] RRR without (more content not included)... Normal [facility] CNOVon 11-13-2023 CNOV Office Visit (INTMWS ) JOSE ABDUL ([id number]) 1980 F Date Time Provider Department 11/13/23 11:00 AM ELSIE KAPLAN During your visit today, we recorded the following information about you: Temperature Pulse Respiration Blood pressure 98.2 degrees 60/minute 16/minute 136/84 Weight 117.5 kg Elsie Kaplan APRN.[employer] 11/13/2023 12:41 PM Signed CC: Patient presents with: Recheck: ER follow up, cellulitis completed AIB HPI Jose Abdul is a 43 year old female who presents today for cellulitis Unsure if there was injury or what caused infection but noticed while playing basketball that leg was red, hot, more swollen then usual and painful. Went immediately to [place] ER on 10/29. No US completed to [...] INSTILL 2 SPRAYS IN EACH NOSTRIL DAILY Lmoli-2-XTT-EPA-Fish Oil 1,000 mg (120 mg-180 mg) cap [...] Never Subs (more content not included)... Normal [facility] CNPNon 11-13-2023 LOU Telephone (PAOLOWS) JOSE ABDUL ([id number]) 1980 F Date Time Provider Department 11/13/23 ELSIE KAPLAN During your visit today, we recorded the following information about you: María Avila MA 11/13/2023 2:42 PM Signed ----- Message from Elsie Kaplan APRN.[employer] sent at 11/13/2023 2:13 PM EDT ----- Please let [facility] residential know preliminary result of US is negative [...] 2 SPRAYS IN EACH NOSTRIL DAILY - Ctafw-2-JVE-EPA-Fish Oil 1,000 mg (120 mg-180 mg) cap [...] extremity [ (more content not included)... Normal [facility] LEG VEIN DVT UNL VAS LABo n 11-13-2023 LEG VEIN DVT UNL VAS LAB Non-Invasive [facility] Lower Extremity Venous Duplex Unilateral - [...] small saphenous vein. Technologist: Hina Giraldo RVT, [facility] Ordering physician: ELSIE KAPLAN Interpreting physician: DANITZA Eden DO Final CC [facility] Image : [id number] See Link below for Image Normal [facility] Lower extremity veinon Non-Invasive Vascular Laboratory [facility] Lower Extremity Venous Duplex Unilateral - [...] small saphenous vein. Technologist: Hina Giraldo RVT [facility] Ordering physician: ELSIE KAPLAN Interpreting physician: DANITZA Eden DO Final See Link below for [facility] C[facility] Telephone (INTMWS) JOSE ABDUL ([id number]) 1980 F Date Time Provider Department 11/12/23 SHERIF THAKUR INTRahWS During your visit today, we recorded the following information about you: Candelaria Ball LPN 11/12/2023 9:30 AM Signed Clarence from [facility] calling 2 weeks ago ER put [...] LPN 11/19/2023 8:50 AM Signed Clarence from [facility] calling back, went over notes from [...] Date Reviewed: 03/19/2023 Reviewed by: Teresa Yeung APRN.[employer] - Fully Assessed Reason for Visit: Patient [...] 2 SPRAYS IN EACH NOSTRIL DAILY - Gtjrx-9-WKF-EPA-Fish Oil 1,000 mg (120 mg-180 mg) cap [...] 01/28/2006 1 (more content not included)... [facility] (INTMWS[facility] CHANTELLJOSE Jacques ([id number]) 1980 F Date Time Provider Department 10/09/23 SHERIF THAKUR INTMWS During your visit today, we recorded the following information about you: Pepper Walsh RN 10/09/2023 2:35 PM Signed Crystal with [facility] calling to update PCP that patient [...] Date Reviewed: 03/19/2023 Reviewed by: Teresa Yeung APRN.[facility] - Fully Assessed Reason for Visit: Patient Update [1234] Prescriptions as of 10/10/2023 - multivitamin-ferrous fumarate-folic acid (CERTAVITE-ANTIOXIDAN T) Take 1 tablet by mouth once daily. - fluticasone (FLONASE) 50 mcg/actuation nasal spray INSTILL 2 SPRAYS IN EACH NOSTRIL DAILY - Rrrww-4-VNP-EPA-Fish Oil 1,000 mg (120 mg-180 mg) cap [...] (HCC) [Z68.41] 12/14/2014 02/09/2015 BMI 45.0-49.9, adult ([facility]) [Z68.42] 02/09/2015 03/19/2023 Hypothalamic hypogonadism (H (more content not included)... [facility] CHANTELLJOSE Jacques ([id number]) 1980 F Date Time Provider Department 10/09/23 SHERIF THAKUR INTMWS During your visit today, we recorded the following information about you: Candelaria Ball LPN 10/09/2023 1:34 PM Signed Clarence from [facility] calling to recert orders for custodial for the patient, if PCP would agree. Please advise Sherif Thakur MD 10/09/2023 5:58 PM Signed Agree Sherif Lassiter MD, Beth, LPN 10/10/2023 8:38 AM Signed Phoned Clarence and went over notes below from Dr Thakur with understanding. Allergies As of Date: 10/09/2023 Noted Allergy Reaction BEE STING 02/28/2023 10 - Anaphylaxis DILANTIN (PHENYTOIN SODIUM EXTEND*01/28/2006 Date Reviewed: 03/19/2023 Reviewed by: Teresa Yeung APRN.[facility] - Fully Assessed Reason for Visit: recert orders [Other] Prescriptions as of 10/10/2023 - multivitamin-ferrous fumarate-folic acid (CERTAVITE-ANTIOXIDAN T) Take 1 tablet by mouth once daily. - fluticasone (FLONASE) 50 mcg/actuation nasal spray INSTILL 2 SPRAYS IN EACH NOSTRIL DAILY - Qqsjd-9-HEG-EPA-Fish Oil 1,000 mg (120 mg-180 mg) cap [...] right lowe (more content not included)... [facility] (INTMWS) JOSE ABDUL ([id number]) 1980 F Date Time Provider Department 08/07/23 SHERIF THAKUR INTMWS During your visit today, we recorded the following information about you: Lillie Marshall RN 08/07/2023 10:44 AM Signed Clarence from [facility] calls to see if provider will continue to follow orders for longterm? RODRÍGUEZ Carnes Terri, MOISES.DIRECTOR SURGICAL 08/07/2023 12:45 PM Signed Darlene Patricia OCCA 08/07/2023 12:57 PM Signed Clarence informed of below. ANUPAMA Lira Allergies As of Date: 08/07/2023 Noted Allergy Reaction BEE STING 02/28/2023 10 - Anaphylaxis DILANTIN (PHENYTOIN SODIUM EXTEND*01/28/2006 Date Reviewed: 03/19/2023 Reviewed by: Teresa Yeung APRN.[employer] MAKER HAND - Fully Assessed Prescriptions as of 08/07/2023 [...] 2 SPRAYS IN EACH NOSTRIL DAILY - Chdwg-6-AYH-EPA-Fish Oil 1,000 mg (120 mg-180 mg) cap [...] L97.909] 01/16/201606/17/ (more content not included)... Normal [facility] Tal 05-30-2023 OBEDN Telephone (QUINTEN) CHANTELLJOSE Grimm ([id number]) 1980 F Date Time Provider Department 05/30/23 ELSIE KAPLAN During your visit today, we recorded the following information about you: Ofelia Rodriguez 05/30/2023 12:16 PM Signed Patient verified by name and . Her care provider, Shaunna Cuenca calling to request a mammogram screening order be faxed to [facility] to complete. She can be reached at [phone] with any questions. Please review and advise. María Avila Ma 05/30/2023 2:48 PM Signed Faxed to [facility] as requested. Allergies As of Date: 05/30/2023 Noted Allergy Reaction BEE STING 02/28/2023 10 - Anaphylaxis DILANTIN (PHENYTOIN SODIUM EXTEND*01/28/2006 Date Reviewed: 03/19/2023 Reviewed by: Teresa Yeung APRN.[facility] - Fully Assessed Reason for Visit: Orders [...] MOUTH EVERY OTHER DAY FOR LYMPHEDEMA - ogkmvnd-guaoqmoac-awx walden D3 (OYSTER SHELL CALCIUM-VITAMIN D) 500 [...] 2 SPRAYS IN EACH NOSTRIL DAILY - Dcogs-1-XES-EPA-Fish Oil 1,000 mg (120 mg-180 mg) cap [...] [Z68.42] 02/09 (more content not included)... [facility] (INTMWS) CHANTELLISAAKJESUS Hanna ([id number]) 1980 F Date Time Provider Department 05/26/23 SHERIF THAKUR INTMWS During your visit today, we recorded the following information about you: Eulalia Laureano RN 05/26/2023 11:36 AM Signed Prior Authorization Documentation Prior authorization requested for the following medication: Medication: Symbicort Provider: Teresa Yeung Insurance Company Name: Medicare A/B and Medicaid secondary Insurance Company Phone number: Not listed Patient ID number: Medicare: [id number] Medicaid: [id number] Pharmacy Name: [facility] Telephone number: [phone]. Caregiver calls to request. Reports pharmacy is also faxing request. RODRÍGUEZ Braden Janice, LPN 05/26/2023 1:28 PM Signed Jose Abdul ([place]: [id number]) - [id number] Budesonide-Formoterol Fumarate 160-4.5MCG/ACT aerosol Status: PA Request Created: March 13, 2023 [id number] Sent: May 26, 2023 Radha Funk LPN [...] ordered in equivalent dosing to symbicort. Call residential to give below information and change in inhaler. Patient needs to follow up in 4 weeks. Te evaluate how she is doing on new inhaler. Thank you Elsie Kaplan APRN.María Mchugh MA 05/29/2023 11:33 AM Signed Tried calling senior data warehouse architect, call was dropped. María Avila MA 06/02/2023 3:30 PM Signed Left message for return call. Allergies As of Date: 05/26/2023 Noted Allergy Reaction BEE STING 02/28/2023 10 - Anaphylaxis DILANTIN (PHENYTOIN SODIUM EXTEND*01/28/2006 Date Reviewed: 03/19/2023 Reviewed by: Teresa Yeung APRN.[employer] HAND - Fully Assessed Reason for Visit: Insurance Authorization [4013] Order(s):mometasone-f ormoterol (DULERA) 100-5 mcg/actuation inhalerInhale 2 [...] MOUTH EVERY OTHER DAY FOR LYMPHEDEMA - shrulrr-jsmrfuxwa-sze walden D3 (OYSTER SHELL CALCIUM-VITAMIN D) 500 [...] 2 SPRAYS IN EACH NOSTRIL DAILY - Sjlez-5-FQC-EPA-Fish Oil 1,000 mg (120 mg-180 mg) cap [...] diphenhydrAMINE (BENADRYL) (more content not included)... Normal [facility] CNOVon 03-19-2023 CNOV Office Visit (INTMWS ) JOSE ABDUL ([id number]) 1980 F Date Time Provider Department 03/19/23 2:40 PM TERESA YEUNG During your visit today, we recorded the following information about you: Pulse Blood pressure Weight Height 77/minute 142/95 117 kg 1.435 m Teresa Yeung APRN.[employer]ION MAKER HAND 03/19/2023 4:20 PM Signed CHIEF COMPLAINT: Patient presents with: Physical: Forms need completed HISTORY: Jose Abdul is a 42 year old female who presents 03/19/2023 for her Yearly Physical Exam. They are here today for a wellness exam. Generally feels well and does not have complaints. Is able to complete ADL's with some assist. She currently lives in a home managed by [place] and is accompanied by a healthcare interpreter today. 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 Other Providers: Podiatry, Dr. Lyubov Fontenot with bird sitter with [facility] Depression Screen Q1: Over the past two weeks, have you felt down, depressed or hopeless? No Q2: Over the past two weeks, have you felt little interest or pleasure in doing things? No Home status: Lives with Current exercise habits: active with special [employer] Dietary habits: Cora pryor Hearing difficulties: no Safe in current home environment: Yes Tobacco: NO ETOH: No CERTIFIED DENTAL ASSISTANT History: LMP: Patient's last menstrual period was [...] BY MOUTH EVERY OTHER DAY FOR LYMPHEDEMA usmsudk-equofufko-tbb walden D3 (OYSTER SHELL CALCIUM-VITAMIN D) 500 [...] INSTILL 2 SPRAYS IN EACH NOSTRIL DAILY Fashc-8-JSX-EPA-Fish Oil 1,000 mg (120 mg-180 mg) cap [...] compression stockings. (more content not included)... Normal [facility] CNOVon 02-28-2023 CNOV Office Visit (INTMWS ) JOSE ABDUL ([id number]) 1980 F Date Time Provider Department 02/28/23 1:40 PM TERESA YEUNG INTMWS During your visit today, we recorded the following information about you: Temperature Pulse Blood pressure Weight 98.3 degrees 62/minute 120/71 112 kg Teresa Yeung APRN.[employer]ION MAKER HAND 02/28/2023 2:10 PM Signed SUBJECTIVE Jose Abdul is a 42 year old female here today for acute concern. Chief Complaint Patient presents with: irriatated spot near vulva HPI Jose Abdul is a 42 year old female. Here today, accompanied by a healthcare interpreter. Concerns of an irritated spot near her [...] BY MOUTH EVERY OTHER DAY FOR LYMPHEDEMA eivzgfs-orybrajxs-oex walden D3 (OYSTER SHELL CALCIUM-VITAMIN D) 500 [...] INSTILL 2 SPRAYS IN EACH NOSTRIL DAILY Mvmfv-4-PQA-EPA-Fish Oil 1,000 mg (120 mg-180 mg) cap [...] is monitored by Dr lexus Jackson, at [facility] She is noted to have a murmur we are not sure where the murmur is but based on her history. When she goes to we will see hospital she has a multi disciplinary care team that works with her. It includes (more content not included)... Normal [facility] Tal 02-26-2023 OBEDN Telephone (FAMPWS) JOSE ABDUL ([id number]) 1980 F Date Time Provider Department 02/26/23 TERESA YEUNG During your visit today, we recorded the following information about you: Reji Tipton LPN 02/26/2023 10:59 AM Signed Clarence Eaton from [facility] calling advising that they visit pt [...] MOUTH EVERY OTHER DAY FOR LYMPHEDEMA - gmuisla-levcpmswi-uki walden D3 (OYSTER SHELL CALCIUM-VITAMIN D) 500 [...] 2 SPRAYS IN EACH NOSTRIL DAILY - Kxbfv-6-JHI-EPA-Fish Oil 1,000 mg (120 mg-180 mg) cap [...] [G47.30] 01/28/2006 (more content not included)... Normal [facility] General/Metabolic - Estabs nory 12-05-2022 General/Metabolic - Established Provider Impressions Cristina is a 42-year-old female with PWS, here for a follow-up visit. A review on management of adults with PWS has been published recently (PMID: 74839376). When systematically screened for common conditions, some [...] encouraged participation in sports activities at her residential. - Management of HTN per PCP. 2. At risk for endocrinopathies: Adults with PWS are at increased risk for diabetes, hypercholesterolemia, growth hormone deficiency, hypogonadism, and rarely, adrenal insufficiency. 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 Plan: - Annual TSH, lipid profile, HbA1C through PCP - See Campus Wellness Coordinator for OCP 3. Bone health Adults with [...] year Chief Complaint Follow up Accompanied by director day care center. History of Present Illness PWS CLINIC Deepali is a 42 year old female who has presented to the PWS multidisciplinary clinic at [facility]. She is accompanied by her senior data warehouse architect, Anali. History was obtained by the patient, [...] the past. PCP: Dr. Sherif Thakur at [facility], fax number [phone], is currently seeing an ASSET PROTECTION ASSISTANT named Older at this office Interval History: [...] and Friday, where she works out (e.g., [employer], [employer]) half a day. She just received a [...] records - they may be accessible on Tutor, and will hopefully be more available on [employer]. - Seeing Gynecology for OCP (for bone health). Dx of uterine prolapse. - Asthma, using inhalers twice a day. She denies dys (more content not included)... Normal [facility] 12-05-2022 Nutrition-Adult History of Present Illness Food/Nutrition related history: [facility] Nutrition Assessment in PWS [...] AND INTAKE: Pt and caregiver (Anali - Palliative Care Nurse Practitioner) present in out-patient PWS clinic for a scheduled f/u clinic visit. 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 The Detention sends packed meals home with her. Food [...] report to dietitian - Send copies of Detention Food Menus and pts actual % of [...] Phone: Tobacco use status [facility] b) No JA-Qsqwtcuy-L [facility] 1500 Work Phone: Tobacco Screening.on 022 Adult depression screening assessment No [facility] 1100 DO Work Phone: Fall risk assessment a) No falls within the last year [facility] 1100 DO Work Phone: Tobacco use status [facility] b) No [facility] 1100 DO Work Phone: US Hip - lefton 05-31-2021 IMPRESSION: Unremarkable ultrasound of the anterior left hip Reverser: NADIA Transcribe Date/Time: May 31 2021 1:54P Dictated by : PAM MUNIZ MD This examination was interpreted and the report reviewed and electronically signed by: GUS SAGE MD on May 31 2021 2:05PM [facility] DIVISION OF RADIOLOGY * * *Final Report* * * DATE OF EXAM: May 31 2021 1:48PM [place] [id number] - HIP LT / PROCEDURE REASON: Left [...] Not well seen. DIVISION OF RADIOLOGY Provider, [facility] Marcia [facility] - 05/31/2021 * * *Final Report* * * DATE OF EXAM: May 31 2021 1:48PM [facility] 1147 - US HIP LT / [...] Unremarkable ultrasound of the anterior left hip Reverser: NADIA Transcribe Date/Time: May 31 2021 1:54P Dictated by : PAM MUNIZ MD This examination was interpreted and the report reviewed and electronically signed by: GUS SAGE MD on May 31 2021 2:05PM EST [facility] Radiology Study observation (narrative) [facility] US Hip - leftOrdered By: [facility] Provider on 05-31-2021 [facility] Tobacco Screening.on 022 Fall risk assessment a) No falls within the last year YN-Raoeoqkv-J [facility] 1500 Work Phone: Tobacco use status [facility] b) No VB-Houkdpks-D [facility] [address] Work Phone: CNOVon 02-15-2021 CNOV Office Visit (AGMIL) JOSE ABDUL ([id number]) 1980 F Date Time Provider Department 02/15/21 [...] needed basis. This note was generated with [employer] dictation software. It may contain incorrect words, spelling, and punctuation and that were not noted in review of the chart prior to signing. I spent 15 minutes in the visit, with more than 50% of the total adfg-ce-fcpj time of the visit in counseling / coordination of care. Recommendations: #1 continue lymphedema pumping #2 continue lymphedema wraps #3 check with primary care physician and if no contraindications begin enteric-coated baby aspirin on a daily basis. Referring Provider: SHERIF THAKUR [[id number]] Allergies As of Date: 02/15/2021 Noted Allergy [...] left lower extremity [I89.0] BMI 50.0-59.9, adult ([facility]) [Z68.43] Prescriptions as of 02/15/2021 - furosemide (LASIX) 20 mg tablet TAKE ONE TABLET BY MOUTH EVERY OTHER DAY - clotrimazole (LOTRIMIN, CLOTRIM) 1 % cream APPLY TOPICALLY TO AFFECTED AREA(S) ON BILATERAL GROIN TWICE DAILY - ammonium lactate (LAC-HYDRIN) 12 % cream APPLY TOPICALLY TO AFFECTED AREA(S) ON LEGS AT BEDTIME - ccjxniv-ueissskip-jic walden D3 (OYSTER SHELL CALCIUM-VITAMIN D) 500 [...] DAILY *SHAKE GENTLY BEFORE USING* - Fish Oil-Idamay-3 Fatty Acids (FISH OIL) 340-1,000 mg cap [...] Recu (more content not included)... Normal [facility] CNOVon 01-18-2021 [facility] Office Visit (AGMIL) JOSE ABDUL ([id number]) 1980 F Date Time Provider Department 01/18/21 [...] a month. This note was generated with [employer] dictation software. It may contain incorrect words, spelling, and punctuation and that were not noted in review of the chart prior to signing. I spent 15 minutes in the visit, with more than 50% of the total crzw-mm-gqgu time of the visit in counseling / coordination of care. Referring Provider: SHERIF THAKUR [[id number]] Allergies As of Date: 01/18/2021 Noted Allergy [...] Order(s):US LEG VEIN DVT [facility] [[id number]] Order #: [id number] FUTURE Prescriptions as of 01/29/2021 - clotrimazole (LOTRIMIN, CLOTRIM) 1 % cream APPLY TOPICALLY TO AFFECTED AREA(S) ON BILATERAL GROIN TWICE DAILY - ammonium lactate (LAC-HYDRIN) 12 % cream APPLY TOPICALLY TO AFFECTED AREA(S) ON LEGS AT BEDTIME - tdaowwh-kkdgkzgzq-wqi walden D3 (OYSTER SHELL CALCIUM-VITAMIN D) 500 [...] DAILY *SHAKE GENTLY BEFORE USING* - Fish Oil-Idamay-3 Fatty Acids (FISH OIL) 340-1,000 mg cap [...] mout (more content not included)... Normal [facility] Vital Signs Date Time Vital Sign Value Performing Clinician Facility 12-21-2023 17:32-0400 Diastolic Blood Pressure Non-Invasive 83 mm[Hg] TABATHA PAGE DO [facility] 12-21-2023 17:32-0400 Heart rate 66 /min TABATHA PAGE DO [facility] 12-21-2023 17:32-0400 Respiratory rate 16 /min TABATHA PAGE DO [facility] 12-21-2023 17:32-0400 Systolic Blood Pressure Non-Invasive 123 mm[Hg] TABATHA CAMILO DO [facility] 12-21-2023 16:06-0400 Diastolic Blood Pressure Non-Invasive 86 mm[Hg] TABATHA PAGE DO [facility] 12-21-2023 16:06-0400 Heart rate 72 /min TABATHAMARISSA PAGE DO [facility] 12-21-2023 16:06-0400 Mean blood pressure 97 mm[Hg] TABATHA PAGE DO [facility] 12-21-2023 16:06-0400 Respiratory rate 18 /min TABATHA PAGE DO [facility] 12-21-2023 16:06-0400 Systolic Blood Pressure Non-Invasive 116 mm[Hg] TABATHA PAGE DO [facility] 12-21-2023 14:11-0400 Blood Pressure Location TABATHA PAGE DO [facility] 12-21-2023 14:11-0400 Body temperature 97.88 [degF] TABATHA PAGE DO [facility] 12-21-2023 14:11-0400 Diastolic Blood Pressure Non-Invasive 85 mm[Hg] TABATHA PAGE DO [facility] 12-21-2023 14:11-0400 Heart rate 63 /min TABATHA PAGE DO [facility] 12-21-2023 14:11-0400 Respiratory rate 16 /min TABATHA PAGE DO [facility] 12-21-2023 14:11-0400 Systolic Blood Pressure Non-Invasive 130 mm[Hg] TABATHA PAGE DO [facility] 11-18-2023 16:05-0400 Body mass index (BMI) [Ratio] 58.07 kg/m2 Sherif Thakur MD Work Phone: [facility] 11-18-2023 16:05-0400 Body weight 119.6 kg Sherif Thakur MD Work Phone: [facility] 11-18-2023 16:05-0400 Diastolic blood pressure 80 mm[Hg] Sherif Thakur MD Work Phone: [facility] Comment on above: L wrist 11-18-2023 16:05-0400 Heart rate 75 /min Sherif Thakur MD Work Phone: [facility] 11-18-2023 16:05-0400 Respiratory rate 16 /min Sherif Thakur MD Work Phone: [facility] 11-18-2023 16:05-0400 Systolic blood pressure 134 mm[Hg] Sherif Thakur MD Work Phone: [facility] Comment on above: L wrist 11-13-2023 11:09-0400 Body mass index (BMI) [Ratio] 57.05 kg/m2 Elsie Older DEHYDRATION UNIT OPERATOR.FIVE PIECE EXPANSION MAKER HAND Work Phone: [facility] 11-13-2023 11:09-0400 Body temperature 98.2 [degF] Elsie Older DEHYDRATION UNIT OPERATOR.FIVE PIECE EXPANSION MAKER HAND Work Phone: [facility] 11-13-2023 11:09-0400 Body weight 117.5 kg Elsie Older DEHYDRATION UNIT OPERATOR.FIVE PIECE EXPANSION MAKER HAND Work Phone: [facility] 11-13-2023 11:09-0400 Diastolic blood pressure 84 mm[Hg] Elsie Older DEHYDRATION UNIT OPERATOR.FIVE PIECE EXPANSION MAKER HAND Work Phone: [facility] 11-13-2023 11:09-0400 Heart rate 60 /min Elsie Older DEHYDRATION UNIT OPERATOR.FIVE PIECE EXPANSION MAKER HAND Work Phone: [facility] 11-13-2023 11:09-0400 Respiratory rate 16 /min Elsie Older DEHYDRATION UNIT OPERATOR.FIVE PIECE EXPANSION MAKER HAND Work Phone: [facility] 11-13-2023 11:09-0400 SaO2% (BldA) [Mass fraction] 98 % Elsie Older DEHYDRATION UNIT OPERATOR.FIVE PIECE EXPANSION MAKER HAND Work Phone: [facility] 11-13-2023 11:09-0400 Systolic blood pressure 136 mm[Hg] Elsie Older DEHYDRATION UNIT OPERATOR.FIVE PIECE EXPANSION MAKER HAND Work Phone: [facility] 12-05-2022 10:40-0400 Body height 143 cm Sherif C Ganta Work Phone: JW-Avqkjnvu-Ngatw [facility] 1500 Work Phone: 12-05-2022 10:40-0400 Body mass index (BMI) [Ratio] 53.24 kg/m2 Sherif C Ganta Work Phone: BS-Iykfmhmk-Felyp ilana 1500 Work Phone: 12-05-2022 10:40-0400 Body surface area Derived from formula 1.93 m2 Sherif C Ganta Work Phone: YA-Jseutzig-Mbcqf ilana 1500 Work Phone: 12-05-2022 10:40-0400 Body temperature 98 [degF] Sherif C Ganta Work Phone: XL-Qymtvtcq-Zdrrb ilana 1500 Work Phone: 12-05-2022 10:40-0400 Body weight 108.86 kg Sherif C Ganta Work Phone: OL-Gaaqktod-Wjwcs ilana 1500 Work Phone: 12-05-2022 10:40-0400 Heart rate 60 /min Sherif C Ganta Work Phone: DS-Klixnisn-Jshjd ilana 1500 Work Phone: 12-05-2022 10:40-0400 Respiratory rate 24 /min Sherif C Ganta Work Phone: QB-Apnqdnhy-Crznu ilana 1500 Work Phone: 12-05-2022 10:40-0400 SaO2% (BldA) [Mass fraction] 99 % Sherif Thakur Work Phone: DL-Uexhsxjd-Zokbn ilana 1500 Work Phone: 10-23-2022 14:47-0400 Body weight 111.13 kg Elsie Older DEHYDRATION UNIT OPERATOR.FIVE PIECE EXPANSION MAKER HAND Work Phone: [facility] 10-23-2022 14:47-0400 Diastolic blood pressure 78 mm[Hg] Elsie Older DEHYDRATION UNIT OPERATOR.FIVE PIECE EXPANSION MAKER HAND Work Phone: [facility] 10-23-2022 14:47-0400 Heart rate 62 /min Elsie Older DEHYDRATION UNIT OPERATOR.FIVE PIECE EXPANSION MAKER HAND Work Phone: [facility] 10-23-2022 14:47-0400 Respiratory rate 16 /min Elsie Older DEHYDRATION UNIT OPERATOR.FIVE PIECE EXPANSION MAKER HAND Work Phone: [facility] 10-23-2022 14:47-0400 SaO2% (BldA) [Mass fraction] 99 % Elsie Older DEHYDRATION UNIT OPERATOR.FIVE PIECE EXPANSION MAKER HAND Work Phone: [facility] 10-23-2022 14:47-0400 Systolic blood pressure 128 mm[Hg] Elsie Older DEHYDRATION UNIT OPERATOR.FIVE PIECE EXPANSION MAKER HAND Work Phone: [facility] 05-02-2022 10:50-0500 Body height 142.2 cm Sherif Thakur MD Work Phone: [facility] 05-02-2022 10:50-0500 Body weight 111.58 kg Sherif Thakur MD Work Phone: [facility] 05-02-2022 10:50-0500 Diastolic blood pressure 68 mm[Hg] Sherif Thakur MD Work Phone: [facility] 05-02-2022 10:50-0500 Heart rate 53 /min Sherif Thakur MD Work Phone: [facility] 05-02-2022 10:50-0500 Respiratory rate 16 /min Sherif Thakur MD Work Phone: [facility] 05-02-2022 10:50-0500 SaO2% (BldA) [Mass fraction] 96 % Sherif Thakur MD Work Phone: [facility] 05-02-2022 10:50-0500 Systolic blood pressure 112 mm[Hg] Sherif Thakur MD Work Phone: [facility] 03-21-2022 12:59-0500 Body temperature 98.2 [degF] Elsie Older DEHYDRATION UNIT OPERATOR.FIVE PIECE EXPANSION MAKER HAND Work Phone: [facility] 03-21-2022 12:59-0500 Body weight 112.95 kg Elsie Older DEHYDRATION UNIT OPERATOR.FIVE PIECE EXPANSION MAKER HAND Work Phone: [facility] 03-21-2022 12:59-0500 Diastolic blood pressure 72 mm[Hg] Elsie Older DEHYDRATION UNIT OPERATOR.FIVE PIECE EXPANSION MAKER HAND Work Phone: [facility] 03-21-2022 12:59-0500 Heart rate 60 /min Elsie Older DEHYDRATION UNIT OPERATOR.FIVE PIECE EXPANSION MAKER HAND Work Phone: [facility] 03-21-2022 12:59-0500 Respiratory rate 16 /min Elsie Older DEHYDRATION UNIT OPERATOR.FIVE PIECE EXPANSION MAKER HAND Work Phone: [facility] 03-21-2022 12:59-0500 SaO2% (BldA) [Mass fraction] 99 % Elsie Older DEHYDRATION UNIT OPERATOR.FIVE PIECE EXPANSION MAKER HAND Work Phone: [facility] 03-21-2022 12:59-0500 Systolic blood pressure 118 mm[Hg] Elsie Older DEHYDRATION UNIT OPERATOR.FIVE PIECE EXPANSION MAKER HAND Work Phone: [facility] 01-29-2022 09:48-0500 Body weight 110.68 kg Sherif Thakur MD Work Phone: [facility] 01-29-2022 09:48-0500 Diastolic blood pressure 68 mm[Hg] Sherif Thakur MD Work Phone: [facility] 01-29-2022 09:48-0500 Heart rate 66 /min Sherif Thakur MD Work Phone: [facility] 01-29-2022 09:48-0500 Respiratory rate 16 /min Sherif Thakur MD Work Phone: [facility] 01-29-2022 09:48-0500 SaO2% (BldA) [Mass fraction] 96 % Sherif Thakur MD Work Phone: [facility] 01-29-2022 09:48-0500 Systolic blood pressure 118 mm[Hg] Sherif Thakur MD Work Phone: [facility] 11-29-2021 10:39-0400 Body height 143 cm Sherif Thakur Work Phone: [facility] 1100 DO Work Phone: 11-29-2021 10:39-0400 Body mass index (BMI) [Ratio] 52.42 kg/m2 Sherif Thakur Work Phone: [facility] 1100 DO Work Phone: 11-29-2021 10:39-0400 Body surface area Derived from formula 1.91 m2 Sherif Thakur Work Phone: [facility] 1100 DO Work Phone: 11-29-2021 10:39-0400 Body temperature 97.9 [degF] Sherif Thakur Work Phone: [facility] 1100 DO Work Phone: 11-29-2021 10:39-0400 Body weight 107.19 kg Sherif Thakur Work Phone: [facility] 1100 DO Work Phone: 11-29-2021 10:39-0400 Diastolic blood pressure 90 mm[Hg] Sherif Thakur Work Phone: [facility] 1100 DO Work Phone: 11-29-2021 10:39-0400 Heart rate 60 /min Sherif Thakur Work Phone: [facility] 1100 DO Work Phone: 11-29-2021 10:39-0400 Systolic blood pressure 141 mm[Hg] Sherif Thakur Work Phone: [facility] 1100 DO Work Phone: 10-29-2021 09:56-0400 Body height 142.2 cm Sherif Thakur MD Work Phone: [facility] 10-29-2021 09:56-0400 Body temperature 99.5 [degF] Sherif Thakur MD Work Phone: [facility] 10-29-2021 09:56-0400 Body weight 109.77 kg Sherif Thakur MD Work Phone: [facility] 10-29-2021 09:56-0400 Diastolic blood pressure 62 mm[Hg] Sherif Thakur MD Work Phone: [facility] 10-29-2021 09:56-0400 Heart rate 56 /min Sherif Thakur MD Work Phone: [facility] 10-29-2021 09:56-0400 Respiratory rate 16 /min Sherif Thakur MD Work Phone: [facility] 10-29-2021 09:56-0400 SaO2% (BldA) [Mass fraction] 95 % Sherif Thakur MD Work Phone: [facility] 10-29-2021 09:56-0400 Systolic blood pressure 118 mm[Hg] Sherif Thakur MD Work Phone: [facility] 08-20-2021 15:53-0400 Body weight 110.22 kg Rae Older DEHYDRATION UNIT OPERATOR.FIVE PIECE EXPANSION MAKER HAND Work Phone: [facility] 08-20-2021 15:53-0400 Diastolic blood pressure 78 mm[Hg] Rae Older DEHYDRATION UNIT OPERATOR.FIVE PIECE EXPANSION MAKER HAND Work Phone: [facility] 08-20-2021 15:53-0400 Heart rate 64 /min Rae Older DEHYDRATION UNIT OPERATOR.FIVE PIECE EXPANSION MAKER HAND Work Phone: [facility] 08-20-2021 15:53-0400 Systolic blood pressure 132 mm[Hg] Rae Older DEHYDRATION UNIT OPERATOR.FIVE PIECE EXPANSION MAKER HAND Work Phone: [facility] 06-28-2021 09:56-0400 Body temperature 98.6 [degF] Sherif Thakur MD Work Phone: [facility] 06-28-2021 09:56-0400 Body weight 109.77 kg Sherif Thakur MD Work Phone: [facility] 06-28-2021 09:56-0400 Diastolic blood pressure 86 mm[Hg] Sherif Thakur MD Work Phone: [facility] 06-28-2021 09:56-0400 Heart rate 51 /min Sherif Thakur MD Work Phone: [facility] 06-28-2021 09:56-0400 Respiratory rate 18 /min Sherif Thakur MD Work Phone: [facility] 06-28-2021 09:56-0400 SaO2% (BldA) [Mass fraction] 99 % Sherif Thakur MD Work Phone: [facility] 06-28-2021 09:56-0400 Systolic blood pressure 136 mm[Hg] Sherif Thakur MD Work Phone: [facility] 05-03-2021 11:33-0500 Body mass index (BMI) [Ratio] 50.2 kg/m2 Sherif Thakur Work Phone: BF-Zeixtcmk-Kaoni ilana 1500 Work Phone: 05-03-2021 11:33-0500 Body surface area Derived from formula 1.88 m2 Sherif Thakur Work Phone: ZI-Njywzhei-Acnjl ilana 1500 Work Phone: 05-03-2021 11:33-0500 Body temperature 97.2 [degF] Sherif Thakur Work Phone: YY-Zqnmboaz-Xnxog ilana 1500 Work Phone: 05-03-2021 11:33-0500 Body weight 102.65 kg Sherif Mark Ganta Work Phone: HB-Lzeihtrj-Zoxfq ilana 1500 Work Phone: 05-03-2021 11:33-0500 Diastolic blood pressure 83 mm[Hg] Sherif C Ganta Work Phone: UI-Chnbixrb-Dffbz ilana 1500 Work Phone: 05-03-2021 11:33-0500 Heart rate 83 /min Sherif C Ganta Work Phone: PN-Izgrmfky-Wzmps ilana 1500 Work Phone: 05-03-2021 11:33-0500 Respiratory rate 22 /min Sherif C Ganta Work Phone: EU-Ardevmwt-Kidja ilana 1500 Work Phone: 05-03-2021 11:33-0500 Systolic blood pressure 136 mm[Hg] Sherif C Ganta Work Phone: QM-Ghffgjpy-Jynkr ilana 1500 Work Phone: 11-05-2018 12:32-0400 BMI (Body Mass Index) 52.81 kg/m2 Mima-uLz Beckerillaci XF-Xkpgjoel-Sgemu ilana Work Phone: 11-05-2018 12:32-0400 Body weight [...] (Body Surface Area) 1.92 m2 Mima-Luz Schillaci TQ-Rldjfbmp-Rwvtt ilana Work Phone: 11-05-2018 12:32-0400 Height 143 cm Smita Salgado MG-Genetics- Isidro ilana Work Phone: 11-05-2018 12:32-0400 Pulse (Heart Rate) 62 /min Smita SHEN-Geneti cs-Isidro ilana Work Phone: Encounters Encounter Date Encounter Type Care Provider Facility Start: 12-22-2023 End: 12-22-2023 Telephone encounter Sherif Thakur MD Work Phone: [facility] [place] Comment on above: Medication Question Start: 12-21-2023 End: 12-21-2023 Emergency department patient visit TABATHA PAGE DO [facility] Start: 12-18-2023 End: 12-22-2023 Telephone encounter Sherif Thakur MD Work Phone: [facility] [place] Comment on above: Medication Problem Start: 12-17-2023 End: 12-17-2023 Telephone encounter Sherif Thakur MD Work Phone: [facility] [place] Comment on above: Patient Update Start: 12-12-2023 End: 12-12-2023 Telephone encounter Sherif Thakur MD Work Phone: [facility] [place] Comment on above: weight gain Start: 12-05-2023 End: 12-08-2023 Telephone encounter Sherif Thakur MD Work Phone: [facility] [place] Comment on above: recert patient for s killed nursing service Start: 12-04-2023 End: 12-04-2023 ambulatory [facility] Start: 11-24-2023 End: 11-24-2023 Refill Sherif Thakur MD Work Phone: [facility] [place] Comment on above: Refill Request Start: 11-18-2023 End: 11-18-2023 Office outpatient visit 25 minutes Sherif Thakur MD Work Phone: [facility] [place] Comment on above: Lymphedema (Primary Dx) Start: 11-18-2023 End: 11-18-2023 ambulatory SHERIF THAKUR Facility:[facility] Start: 11-13-2023 End: 11-13-2023 Telephone encounter Elsie Kaplan APRN.[employer]ION MAKER HAND Work Phone: [facility] [place] Comment on above: Results Start: 11-13-2023 End: 11-13-2023 ambulatory ELSIE KAPLAN Facility:[facility] Start: 11-13-2023 End: 11-13-2023 Patient encounter procedure Elsie Kaplan DEHYDRATION UNIT OPERATOR.FIVE [employer]IE[employer] EXPANSION MAKER HAND Work Phone: [facility] [place] Comment on above: Cellulitis of left l ower extremity (Primary Dx); Pain of left lower extremity; Edema, unspecified type Start: 11-12-2023 End: 11-13-2023 Telephone encounter Sherif Thakur MD Work Phone: [facility] [place] Comment on above: Patient Update Start: 10-09-2023 Telephone encounter Sherif collier MD Work Phone: [facility] [place] Comment on above: recert orders Patient Update Start: 09-19-2023 Refill Sherif Thakur M D Work Phone: [facility] [place] Comment on above: Refill Request Start: 08-22-2023 Refill Sherif Reddyta M D Work Phone: [facility] [place] Comment on above: Refill Request Start: 08-11-2023 Refill Elsie Kpalan APRN .[employer] MAKER HAND Work Phone: [facility] [place] Comment on above: Refill Request Start: 08-07-2023 Telephone encounter Sherif collier MD Work Phone: [facility] [place] Start: 08-06-2023 Refill Sherif Thakur M D Work Phone: [facility] Comment on above: Refill Request Start: 07-28-2023 Refill Sherif Thakur M D Work Phone: [facility] [place] Comment on above: error Start: 07-21-2023 Refill Sherif Reddyta M D Work Phone: [facility] [place] Comment on above: Refill Request Start: 07-07-2023 Refill Teresa Hanna PRN.F[employer] EXPANSION MAKER HAND Work Phone: [facility] [place] Comment on above: Refill Request Start: 06-12-2023 Refill Elsie Older DEHYDRATION UNIT OPERATOR .FIVE PIECE EXPANSION MAKER HAND Work Phone: [facility] [place] Comment on above: Refill Request Start: 05-30-2023 Telephone encounter Elsie Kaplan DEHYDRATION UNIT OPERATOR.FIVE PIECE EXPANSION MAKER HAND Work Phone: [facility] [place] Comment on above: Orders Start: 05-26-2023 Telephone encounter Sherif collier MD Work Phone: [facility] [place] Comment on above: Insurance Authorizat ion Start: 03-19-2023 End: 03-19-2023 ambulatory [facility] Facility:[facility] Start: 02-28-2023 End: 02-28-2023 ambulatory [facility] Facility:[facility] Start: 02-04-2023 Refill Elsie Older DEHYDRATION UNIT OPERATOR .FIVE [employer] EXPANSION MAKER HAND Work Phone: [facility] [place] Comment on above: Refill Request Start: 01-20-2023 Refill Sherif Bowling Work Phone: [facility] [place] Comment on above: Refill Request Start: 12-12-2022 Refill Sherif Bowling Work Phone: [facility] [place] Comment on above: Refill Request Start: 12-05-2022 Office outpatient vi sit 40 minutes Sherif Thakur Work Phone: WS-Rvpertzd-Lbxqikpf 1500 Work Phone: Start: 12-05-2022 [id number] Start: 10-23-2022 End: 10-23-2022 Refill Elsie Older DEHYDRATION UNIT OPERATOR.FIVE PIECE EXPANSION MAKER HAND Work Phone: [facility] [place] Comment on above: Refill Request Lymphedema (Primary Dx); Obstructive sleep apnea syndrome; Acquired hypothyroidism; Mild intermittent asthma without complication Start: 10-10-2022 Telephone encounter Sherif collier MD Work Phone: [facility] [place] Comment on above: Patient Question Start: 10-08-2022 ambulatory Sherif Bowling Work Phone: [facility] [place] Start: 10-08-2022 Telephone encounter Sherif collier MD Work Phone: [facility] [place] Comment on above: Medication Problem Start: 08-26-2022 Refill Sherif Bowling Work Phone: [facility] [place] Comment on above: Refill Request Start: 08-23-2022 Refill Elsie Kaplan DEHYDRATION UNIT OPERATOR .FIVE PIECE EXPANSION MAKER HAND Work Phone: [facility] [place] Comment on above: Refill Request Start: 08-07-2022 Refill Elsie Kaplan DEHYDRATION UNIT OPERATOR .FIVE PIECE EXPANSION MAKER HAND Work Phone: [facility] [place] Comment on above: Refill Request Start: 07-18-2022 Refill Sherif Bowling Work Phone: [address] [place] [address] Comment on above: Refill Request Start: 06-06-2022 Telephone encounter Sherif collier MD Work Phone: [facility] [place] Comment on above: Orders (Medication A dministration Consent ) Start: 06-04-2022 Refill Elsie Kaplan DEHYDRATION UNIT OPERATOR .FIVE PIECE EXPANSION MAKER HAND Work Phone: [facility] [place] Comment on above: Refill Request Start: 05-15-2022 Refill Elsie Kaplan DEHYDRATION UNIT OPERATOR .FIVE PIECE EXPANSION MAKER HAND Work Phone: [facility] [place] Comment on above: Refill Request Start: 05-02-2022 End: 05-02-2022 Patient encounter procedure Sherif Thakur MD Work Phone: [facility] [place] Comment on above: Annual physical exam (Primary Dx); Hypothalamic hypogonadism (HCC); Prader-Willi syndrome; Obstructive sleep apnea syndrome; Mild intermittent asthma without complication; Acquired hypothyroidism; Lymphedema of left lower extremity Start: 03-21-2022 End: 03-21-2022 Patient encounter procedure Elsie Kaplan APRN.FIVE [employer] EXPANSION MAKER HAND Work Phone: [facility] [place] Comment on above: Bilateral chronic kn ee pain (Primary Dx); Acute cough Start: 02-05-2022 Refill Elsie Older DEHYDRATION UNIT OPERATOR .FIVE PIECE EXPANSION MAKER HAND Work Phone: [facility] [place] Comment on above: Refill Request Start: 01-29-2022 End: 01-29-2022 Patient encounter procedure Sherif Thakur MD Work Phone: [facility] [place] Comment on above: Obstructive sleep ap shelby syndrome (Primary Dx); Encounter for immunization; Mild intermittent asthma without complication; Acquired hypothyroidism; Lymphedema of right lower extremity; Lymphedema of left lower extremity; Sleep deprivation Start: 01-07-2022 Telephone encounter Sherif collier MD Work Phone: [facility] [place] Comment on above: Orders; handicap cristina card rx Start: 12-13-2021 Telephone encounter Sherif collier MD Work Phone: [facility] [place] Comment on above: Patient Question Start: 11-29-2021 Telephone encounter Sherif collier MD Work Phone: [facility] [place] Comment on above: Orders Start: 11-29-2021 Patient encounter procedure Sherif Thakur Work Phone: [facility] 1100 DO Work Phone: Start: 10-29-2021 End: 10-29-2021 Patient encounter procedure Sherif Thakur MD Work Phone: [facility] [place] Comment on above: Prader-Willi syndrom e (Primary Dx); Skin ulcer, limited to breakdown of skin (HCC); Pedal edema; Mild persistent asthma without complication; Obstructive sleep apnea syndrome Start: 09-20-2021 Refill Sherif Bowling Work Phone: [facility] [place] Comment on above: Refill Request Start: 09-04-2021 Refill Yazan Hanna PRN.CNP Work Phone: [facility] [place] Comment on above: Refill Request Start: 08-29-2021 Telephone encounter Sherif collier MD Work Phone: [facility] [place] Comment on above: Home health update Start: 08-20-2021 End: 08-20-2021 Patient encounter procedure Rae Kaplan APRN.FIVE [employer]IE[employer] EXPANSION MAKER HAND Work Phone: [facility] [place] Comment on above: Skin ulcer of left t high, limited to breakdown of skin (HCC) (Primary Dx) Start: 08-14-2021 Refill Yazan Hanna PRN.CNP Work Phone: [facility] [place] Comment on above: Refill Request Start: 07-06-2021 Telephone encounter Sherif collier MD Work Phone: [facility] [place] Comment on above: Order request Start: 06-28-2021 Telephone encounter Sherif collier MD Work Phone: [facility] [place] Comment on above: PT Order Question Start: 06-28-2021 End: 06-28-2021 Patient encounter procedure Sherif Thakur MD Work Phone: [facility] [place] Comment on above: Prader-Willi syndrom e (Primary Dx); SOB (shortness of breath); Physical therapy evaluation, initial Start: 06-28-2021 End: 06-28-2021 Patient encounter status Sherif Thakur MD Work Phone: [facility] [place] Start: 06-22-2021 Telephone encounter Sherif collier MD Work Phone: [facility] [place] Comment on above: [facility] work (verbal order needed) Start: 06-13-2021 Telephone encounter Sherif collier MD Work Phone: [facility] [place] Comment on above: Forms Start: 06-06-2021 Telephone encounter Sherif collier MD Work Phone: [facility] [place] Comment on above: Results Start: 05-31-2021 End: 05-31-2021 Subsequent hospital visit by physician [facility] [address] Radiology Comment on above: Left groin pain [R10 .32] Start: 05-03-2021 Nutrition therapy Sherif collier Work Phone: UL-Clstdyvq-Kpvlaizs 1500 Work Phone: Start: 05-03-2021 Patient encounter procedure Sherif Thakur Work Phone: BO-Ewhmskaa-Iodfisbk 1500 Work Phone: Start: 12-02-2019 Patient encounter procedure [facility] Work Phone: Start: 08-05-2019 Patient encounter procedure [facility] Work Phone: Start: 05-06-2019 Patient encounter procedure [facility] Work Phone: Start: 11-05-2018 Patient encounter procedure Mima-Luz Salgado IY-Ltwchtzc-Vrjbkucy Work Phone: Start: 05-07-2018 Patient encounter procedure Mima-Luz Salgado FP-Dxryffyx-Nbupauje Work Phone: Start: 09-04-2017 Patient encounter procedure Mima-Luz Salgado RA-Lplghxrv-Mmbhrasn Work Phone: Start: 01-01-2017 End: 01-01-2017 Ambulatory [facility] Facility:[facility] Start: 12-31-2016 Patient encounter procedure Mima-Luz Salgado MZ-Jmuqbbty-Likjyjjy Work Phone: Start: 12-13-2016 Patient encounter procedure Mima-Luz Salgado JG-Wkiwjyrs-Auzvlfgk Work Phone: Start: 12-10-2016 Patient encounter procedure Mima-Luz Salgado IO-Ptixlcla-Rynooyfp Work Phone: Start: 12-05-2016 Patient encounter procedure Smita Salgado PW-Tbdvbyah-Mfueewdx Work Phone: Procedures Date Procedure Procedure Detail [...] Author Start: 05-22-2026 HPV TESTING HPV TESTING [facility] Start: 05-22-2026 PAP TESTING PAP TESTING [facility] Start: 05-22-2026 Screening for malign ant neoplasm of cervix [facility] Start: 01-09-2025 Urine microalbumin profile [facility] Start: 11-17-2024 Annual PCP Team Leadership Development Consultant salvatore Disease Visit Annual PCP Team Chronic Disease Visit [facility] Start: 11-12-2024 Annual PCP Team Leadership Development Consultant salvatore Disease Visit Annual PCP Team Chronic Disease Visit [facility] Start: 07-03-2024 Screening for malign ant neoplasm of breast Mammogram Screening [facility] Start: 03-22-2024 End: 03-22-2024 Patient encounter procedure 03/22/2024 1:00 PM EST Office Visit [facility] [place] [address] [place], [place] [id number] Elsie Kaplan APRN.FIVE PIE[employer] EXPANSION MAKER HAND [address] [facility] [place] [id number] physical [facility] [place] Comment on above: physical Start: 03-19-2024 Annual PCP Team Leadership Development Consultant salvatore Disease Visit Annual PCP Team Chronic Disease Visit [facility] Start: 02-20-2024 End: 02-20-2024 Patient encounter procedure 02/20/2024 9:00 AM EST Office Visit [facility] [place] [address] [place] [address] Sherif Thakur MD [address] [place] [address] 3 mo follow up; BL lymphedema [facility] [place] Comment on above: 3 mo follow up; BL l ymphedema Start: 01-01-2024 End: 01-01-2024 Patient encounter procedure 01/01/2024 3:20 PM EDT Office Visit [facility] [place] [address] [place] [address] Sherif Thakur MD [address] [place] [address] [facility] f/u 12-21-23. s/o SOB [facility] [place] Comment on above: [facility] f/u 12-08. s/o SOB Start: 11-18-2023 End: 11-18-2023 Patient encounter procedure 11/18/2023 3:40 PM EDT Office Visit [facility] [place] [address] [place] [address] Sherif Thakur MD [address] [place] [address] compression hose, needs to be set up with a compression class [facility] [place] Comment on above: compression hose, ne eds to be set up with a compression class Start: 11-09-2023 Covid-19 Vaccine ( season) Covid-19 Vaccine () [facility] Start: 11-09-2023 Covid-19 Vaccine ( season) Covid-19 Vaccine () [facility] Start: 11-09-2023 Influenza vaccination [facility] Start: 10-24-2023 ANNUAL PCP TEAM LANDCARE OFFICER SALVATORE DISEASE VISIT ANNUAL PCP TEAM CHRONIC DISEASE VISIT [facility] Start: 07-02-2023 ANNUAL PCP TEAM LANDCARE OFFICER SALVATORE DISEASE VISIT ANNUAL PCP TEAM CHRONIC DISEASE VISIT [facility] Start: 05-02-2023 ANNUAL PCP TEAM LANDCARE OFFICER SALVATORE DISEASE VISIT ANNUAL PCP TEAM CHRONIC DISEASE VISIT [facility] Start: 03-21-2023 ANNUAL PCP TEAM LANDCARE OFFICER SALVATORE DISEASE VISIT ANNUAL PCP TEAM CHRONIC DISEASE VISIT [facility] Start: 03-10-2023 Behavioral Health Screening Behavioral Health Screening [facility] Start: 03-10-2023 Depression Assessment Depression Ass essment [facility] Start: 01-29-2023 ANNUAL PCP TEAM LANDCARE OFFICER SALVATORE DISEASE VISIT ANNUAL PCP TEAM CHRONIC DISEASE VISIT [facility] Start: 12-05-2022 PRAISAURO, Provider : Marisol Mohamud, Status: Pen, Time: 10:30 AM JOSLYN, Provider: Marsiol Mohamud, Status: Pen, Time: 10:30 AM [facility] 1100 DO Work Phone: Start: 11-08-2022 Covid-19 Vaccine ( season) Covid-19 Vaccine ( season) [facility] Start: 11-08-2022 Influenza vaccination [facility] Start: 10-29-2022 Adult depression screening assessment DEPRESSION SCREENING [facility] Start: 10-29-2022 ANNUAL PCP TEAM LANDCARE OFFICER SALVATORE DISEASE VISIT ANNUAL PCP TEAM CHRONIC DISEASE VISIT [facility] Start: 10-08-2022 End: 12-08-2022 Basic metabolic 2000 panel - Serum or Plasma BASIC METABOLIC PNL Lab Routine Medication management Expected: 10/08/2022, Expires: 12/08/2022 [facility] Work Phone: Comment on above: Expected: 10/08/2022 , Expires: 12/08/2022 Start: 10-08-2022 End: 12-08-2022 Thyrotropin [Units/volume] in Serum or Plasma TSH BLD Lab Routine Acquired hypothyroidism Expected: 10/08/2022, Expires: 12/08/2022 [facility] Work Phone: Comment on above: Expected: 10/08/2022 , Expires: 12/08/2022 Start: 08-20-2022 ANNUAL PCP TEAM LANDCARE OFFICER SALVATORE DISEASE VISIT ANNUAL PCP TEAM CHRONIC DISEASE VISIT [facility] Start: 2022 Mammography [facility] Start: 2022 Screening for malign ant neoplasm of breast Mammogram Screening [facility] Start: 06-28-2022 ANNUAL PCP TEAM LANDCARE OFFICER SALVATORE DISEASE VISIT ANNUAL PCP TEAM CHRONIC DISEASE VISIT [facility] Start: 04-23-2022 ANNUAL PCP TEAM LANDCARE OFFICER SALVATORE DISEASE VISIT ANNUAL PCP TEAM CHRONIC DISEASE VISIT [facility] Start: 03-10-2022 DEPRESSION ASSESSMENT DEPRESSION ASS ESSMENT [facility] Start: 11-29-2021 End: 01-29-2022 25-hydroxyvitamin D3 [Mass/volume] in Serum or Plasma VITAMIN D 25 HYDROXY Lab Routine Vitamin D deficiency Expected: 11/29/2021, Expires: 01/29/2022 [facility] Work Phone: Comment on above: Expected: 11/29/2021 , Expires: 01/29/2022 Start: 11-29-2021 End: 01-29-2022 CBC W Auto Differential panel - Blood CBC + DIFF Lab Routine Prader-Willi syndrome Expected: 11/29/2021, Expires: 01/29/2022 [facility] Work Phone: Comment on above: Expected: 11/29/2021 , Expires: 01/29/2022 Start: 11-29-2021 End: 01-29-2022 Comprehensive metabolic 2000 panel - Serum or Plasma COMP METABOLIC PANEL Lab Routine Encounter for screening for diabetes mellitus Expected: 11/29/2021, Expires: 01/29/2022 [facility] Work Phone: Comment on above: Expected: 11/29/2021 , Expires: 01/29/2022 Start: 11-29-2021 End: 01-29-2022 Hemoglobin A1c in Blood HGB A1C Lab Routine Elevated blood sugar Expected: 11/29/2021, Expires: 01/29/2022 [facility] Work Phone: Comment on above: Expected: 11/29/2021 , Expires: 01/29/2022 Start: 11-29-2021 End: 01-29-2022 Lipid 1996 panel - Serum or Plasma LIPID PANEL BASIC Lab Routine Lipid screening Expected: 11/29/2021, Expires: 01/29/2022 [facility] Work Phone: Comment on above: Expected: 11/29/2021 , Expires: 01/29/2022 Start: 11-29-2021 End: 01-29-2022 Thyrotropin [Units/volume] in Serum or Plasma TSH BLD Lab Routine Hypothyroidism, unspecified type Expected: 11/29/2021, Expires: 01/29/2022 [facility] Work Phone: Comment on above: Expected: 11/29/2021 , Expires: 01/29/2022 Start: 11-08-2021 Influenza vaccination [facility] Start: 10-31-2021 FUV, Provider: Marisol Mohamud, Status: Pen, Time: 11:30 AM FUV, Provider: Marisol Mohamud, Status: Pen, Time: 11:30 AM TE-Uqukzkxy-Jjvdt ilana 1500 Work Phone: Start: 03-10-2021 DEPRESSION ASSESSMENT DEPRESSION ASS ESSMENT [facility] Start: 12-13-2020 COVID-19 VACCINE (3 - Booster for Moderna series) COVID-19 VACCINE (3 - Booster for Moderna series) [facility] Start: 11-08-2020 Influenza vaccination INFLUENZA (#1) [facility] Start: 09-07-2020 COVID-19 VACCINE (3 - Booster for Moderna series) COVID-19 VACCINE (3 - Booster for Moderna series) [facility] Start: 12-06-2019 25 hydroxy includes fractions if performed Vitamin D 25-Hydroxy [facility] [employer] Work Phone: Start: 12-06-2019 Echocardiography [facility] [employer] Work Phone: Start: 12-06-2019 EKG study Electrocardiogram EKG U [facility] [employer] Work Phone: Start: 12-06-2019 HbA1c (Bld) [Mass fraction] Hemoglobin A1C [facility] [employer] Work Phone: Start: 12-06-2019 Hepatic function panel Hepatic Funct ion Panel [facility] [employer] Work Phone: Start: 12-06-2019 Lipid panel Lipid Panel [facility] Work Phone: Start: 12-06-2019 Urea, electrolytes a nd creatinine measurement Renal Function Panel [facility] Work Phone: Start: 12-06-2019 Urnls dip stick/tabl et rgnt auto w/o microscopy Urinalysis [facility] Work Phone: Start: 05-26-2019 Adult depression screening assessment DEPRESSION SCREENING [facility] Start: 04-11-2007 PNEUMOCOCCAL (2 - PCV) PNEUMOCOCCAL (2 - PCV) [facility] Start: 04-11-2007 Pneumococcal vaccination Pneum ococcal Vaccine (2 - PCV) [facility] Start: 2001 Hepatitis B Vaccine (1 of 3 - 19+ 3-dose series) Hepatitis B Vaccine (1 of 3 - 19+ 3-dose series) [facility] Start: 2000 Anxiety Screening Anxiety Screening [facility] Start: 2000 Depression Screening Depression Scre ening [facility] Start: 2000 SPIROMETRY SPIROMETRY [facility] Start: 1982 HEPATITIS B (1 of 3 - 3-dose series) HEPATITIS B (1 of 3 - 3-dose series) [facility] Start: 1982 Hepatitis B Vaccine (1 of 3 - 3-dose series) Hepatitis B Vaccine (1 of 3 - 3-dose series) [facility] End: 06-28-2022 Echocardiography ECHO Cardiology Routine Prader-Willi syndrome SOB (shortness of breath) 1 Occurrences starting 06/28/2021 until 06/28/2022 [facility] Work Phone: Comment on above: 1 Occurrences starti ng 06/28/2021 until 06/28/2022 [facility] NEGATED: Highlighted row has been ruled out! Planned Goals not documented [facility] Work Phone: Immunizations Immunization Date Immunization Notes Care Provider Shani aleman 01-29-2022 COVID-19 booster vaccine, age 12+ yr, bivalent (PFIZER-BIONTGlobaTrek) Sherif Thakur MD Work Phone: [facility] 07-13-2020 COVID-19 vaccine, fu ll dose (MODERNA) Sherif Thakur MD Work Phone: [facility] Work Phone: 06-15-2020 COVID-19 vaccine, fu ll dose (MODERNA) Sherif Thakur MD Work Phone: [facility] Work Phone: 12-22-2019 influenza, injectabl e, quadrivalent, contains preservative Sherif Thakur MD Work Phone: [facility] Work Phone: 12-22-2019 influenza virus vaccine, unspecified formulation Sherif Thakur MD Work Phone: [facility] 01-19-2019 influenza, injectabl e, quadrivalent, contains preservative Sherif Thakur MD Work Phone: [facility] 11-26-2017 influenza, injectabl e, quadrivalent, preservative free Sherif Thakur MD Work Phone: [facility] Work Phone: 01-27-2017 influenza, injectabl e, quadrivalent, contains preservative Sherif Thakur MD Work Phone: [facility] Work Phone: 12-13-2015 influenza, injectabl e, quadrivalent, contains preservative Sherif Thakur MD Work Phone: [facility] 01-09-2015 tetanus toxoid, redu abdelrahman diphtheria toxoid, and acellular pertussis vaccine, adsorbed Sherif Thakur MD Work Phone: [facility] Work Phone: 12-14-2014 influenza, injectabl e, quadrivalent, contains preservative Sherif Thakur MD Work Phone: [facility] 12-13-2013 influenza, seasonal, injectable Sherif Thakur MD Work Phone: [facility] 01-01-2013 influenza virus vaccine, unspecified formulation Sherif Thakur MD Work Phone: [facility] Work Phone: 12-13-2010 influenza virus vaccine, unspecified formulation Sherif Thakur MD Work Phone: [facility] 05-25-2010 tuberculin skin test ; purified protein derivative solution, intradermal Sherif Thakur MD Work Phone: [facility] 01-30-2010 influenza virus vaccine, unspecified formulation Sherif Thakur MD Work Phone: [facility] Work Phone: 05-29-2009 tuberculin skin test ; purified protein derivative solution, intradermal Sherif Thakur MD Work Phone: [facility] Work Phone: 12-27-2008 influenza virus vaccine, unspecified formulation Sherif Thakur MD Work Phone: [facility] 02-03-2008 influenza virus vaccine, unspecified formulation Sherif Thakur MD Work Phone: [facility] 01-06-2007 influenza virus vaccine, unspecified formulation Sherif Thakur MD Work Phone: [facility] Work Phone: 04-11-2006 pneumococcal polysaccharide vaccine, 23 valent Sherif Thakur MD Work Phone: [facility] Work Phone: 01-28-2006 influenza virus vaccine, unspecified formulation Sherif Thakur MD Work Phone: [facility] 11-14-2003 tetanus and diphther ia toxoids, adsorbed, preservative free, for adult use (2 Lf of tetanus toxoid and 2 Lf of diphtheria toxoid) Sherif Thakur MD Work Phone: [facility] Work Phone: NEGATED: Highlighted row has not occurred!12-20-2020 influenza, injectable, quadrivalent, contains preservative Sherif Thakur MD Work Phone: [facility] Work Phone: Payers Date Payer Category Payer Medicaid MEDICAID [facility] MEDICAID [id number] 2015-Present [phone] [address] [place] [address] Medicaid [id number] 2015 Medicaid MEDICAID [facility] MEDICAID [id number] 2015-Present [phone] [address] [place] [address] Medicaid [id number] 2007 Medicare MEDICARE MEDICAR E A AND B [id number] 2007-Present [phone] [place] [address] Medicare [id number] 2007 Medicare MEDICARE MEDICAR E A AND B [id number] 2007-Present [phone] [place] [address] Medicare [id number] 2007 Medicare [id number] 2006 Medicaid [id number] 1982 Unknown [id number] 1982 Unknown [id number] 1982 Unknown [id number] 1982 Unknown [id number] 1982 Unknown [id number] Medicare [id number] Unknown Social History Date Type Detail Facility Assertion Unknown if ever smoked [facility] Work Phone: Start: 07-01-2022 End: 10-23-2022 Lives in residential Lives in residential [facility] Work Phone: Start: 11-21-2010 Tobacco smoking stat us GAIS Never smoked tobacco [facility] Start: 04-23-2021 End: 11-18-2023 Alcohol intake Current non-drinker of alcohol (finding) [facility] Start: 1980 Sex Assigned At Not on file [facility] Start: 05-21-2021 End: 10-29-2021 Exposure to SARS-CoV-2 (event) Not sure [facility] Start: 11-21-2010 Tobacco use and exposure Smokeless tobacco non-user [facility] Work Phone: Start: 07-01-2022 End: 10-23-2022 Tobacco use panel [facility] Work Phone: Adult Depression Screening Assessment 0 [facility] Work Phone: Functional Status Date Assessment Result Facility 12-21-2023 Functional Status Ambulation in [facility][note 3] 12-21-2023 Functional Status Standard Safet y ID band on, Visitor at bedside [facility] NEGATED: Highlighted row Functional performance Functional status health issues are not documented Disease [facility] Work Phone: Mental Status Date Assessment Result Facility 12-21-2023 Mental Status Orientation Orie nted x [address] [facility] 12-21-2023 [facility] NEGATED: Highlighted row Cognitive function [Interpretation] Cognitive status health issues are not documented Disease [facility] Work Phone: Clinical Notes 01-16-2016 to 12-22-2023 Telephone Encounter - María Avila MA - 12/22/2023 1:49 PM EDTTelephone Encounter - María Avila MA - 12/22/2023 1:49 PM EDTTelephone Encounter - Elsie Kaplan APRN.CNP - 12/22/2023 1:41 PM EDT Note Date & Type Note Facility 12-22-2023 Telephone encounter Note Pharmacist notified. [facility] 12-22-2023 Miscellaneous Notes Pharmacist notified. She is supposed to be taking both short term. Is there a way to get her in earlier then in 10 days? Thank you Elsie Kaplan APRN.CNP Pharmacist @ [facility] calling to clarify orders for Furosemide [...] Annie Brand, RN documented in this encounter [facility] 12-22-2023 Telephone encounter Note She is supposed to be taking both short term. Is there a way to get her in earlier then in 10 days? Thank you Elsie Kaplan APRN.CNP [facility] 12-22-2023 Telephone encounter Note Pharmacist @ [facility] calling to clarify orders for Furosemide [...] Please review and advise. Annie Brand, RN [facility] 12-22-2023 Telephone encounter Note Call returned by Shobha message given as provided. She voices understanding. [facility] 12-22-2023 Miscellaneous Notes Call returned by Shobha message given as provided. She voices understanding. Called and left a voicemail for the [facility] to call back and ask for a nurse to receive the providers message. Teresa Ferrera RN Prescription Resent. Thank you Elsie Kaplan APRN.F[employer]IECE EXPANSION MAKER HAND [facility]- phoned to report patient was seen in [place] ER on Friday12-21-23, with SOB. ER gave patient IV lasix and sent patient home. Reports patient is having stress in residential with another housemate, which is causing patient anxiety, and this was part of the problem, but patient has also been having problems with edema. This nurse phoned [facility]- [facility] to schedule ER f/u appt, and noted in 12-17-23 encounter, Lithograph Designer had ordered potassium 20 mg daily, and lasix 40 mg daily, until patient is seen. Asked Shobha how patient is doing on this dose. Shobha reports patient never received the medication, b/c it was sent to the wrong pharmacy, should have been sent to [facility]. Shobha did call pcp to report this (see message below), but never received the medication. Reports even if the medication is sent to [facility] today- they still will not receive it until Fri. Pended medications for [facility]. Please send geovanny. Shobha reports patient is doing fine today- and they are working on the problem with the housemate. Scheduled patient hosp f/u appt for 01-01-24. Shobha from [facility] states there were medications sent for pt yesterday documented in this encounter [facility] 12-22-2023 Telephone encounter Note Called and left a voicemail for the [facility] to call back and ask for a nurse to receive the providers message. Teresa Ferrera RN [facility] 12-22-2023 Telephone encounter Note Prescription Resent. Thank you Elsie Kaplan APRN.FIVE PIECE EXPANSION MAKER HAND [facility] 12-22-2023 Telephone encounter Note [facility]- phoned to report patient was seen in [place] ER on Friday12-21-23, with SOB. ER gave patient IV lasix and sent patient home. Reports patient is having stress in residential with another housemate, which is causing patient anxiety, and this was part of the problem, but patient has also been having problems with edema. This nurse phoned Shobha- caregiver @ [facility] to schedule ER f/u appt, and noted in 12-17-23 encounter, Lithograph Designer had ordered potassium 20 mg daily, and lasix 40 mg daily, until patient is seen. Asked Shobha how patient is doing on this dose. Shobha reports patient never received the medication, b/c it was sent to the wrong pharmacy, should have been sent to [facility]. Shobha did call pcp to report this (see message below), but never received the medication. Reports even if the medication is sent to [facility] today- they still will not receive it until Fri. Pended medications for [facility]. Please send geovannynalini Yeager reports patient is doing fine today- and they are working on the problem with the housemate. Scheduled patient hosp f/u appt for 01-01-24. [facility] 12-21-2023 Hospital Discharge instructions Patient Education 12/21/2023 [...] or as directed by your healthcare provider [phone] [employer]. [address] [place] [address]. All rights reserved. This information is not intended as a substitute for professional medical care. Always follow your healthcare professional's instructions. Follow Up Care 12/21/2023 14:01:46 With:please follow up with your channel sales manager Address:Unknown When:2-4 days With:Go to emergency room if symptoms worsen Address:Unknown When:2-4 days With:SHERIF THAKUR MD Address: [address] [place] [id number] When:2-[address] [facility] 12-21-2023 Emergency department Discharge summary Discharge Instructions Thank you for allowing [facility] to assist you with your healthcare needs. [...] other acute concerns. Otherwise follow-up with your channel sales manager as scheduled. No qualifying data available. Post Acute Orders No qualifying data available. You Need to Schedule the Following Appointments Follow Up with please follow up with your channel sales manager When:Within 2-4 days Follow Up with Go to emergency room if symptoms worsen When:Within 2-4 days Follow Up with SHERIF THAKUR MD When:Within 2-4 days Where:[address] [place] [address]- Allergies Bee Stings Dilantin misc non-codified allergy [...] or as directed by your healthcare provider [phone] [employer]. [address] [place] [address]. All rights reserved. This information is not intended as a substitute for professional medical care. Always follow your healthcare professional's instructions. Additional Information VACCINATE! IT SAVES LIVES! Members of the community who have not yet received the COVID-19 vaccine and would like to receive it can visit one of [facility] vaccine clinics. There are many vaccine clinic locations within the [facility]. For locations and available times, please visit www.[email or web address].[place].go v/. It is important to note that some COVID mobile vaccine clinics are held outdoors and may be canceled in rainy or stormy conditions. To learn more about pediatric vaccinations (ages 5-11), we invite you to visit the [facility] webpage. https://www.[email or web address].org/pag es/2362-Jynjs-Lgkbogilvvr-Frequent il-Gsdcz-Kshztfbrt.html To learn more about the COVID-19 vaccine, we invite you to visit the CDC website for a list of frequently asked questions. https://www.cdc.gov/coronavirus/-ncov/vaccines/faq.html [facility] Patient Portal Access Instructions: Stay connected with your healthcare team and access your personal medical information anytime with the [facility] Patient Portal. If you would like a full copy of your medical records please contact the [facility] Medical Records Department Friday through Friday between 8a.m. and 4:30p.m. Please follow the directions below to access the portal: 1.Access the email account you provided upon registration to the [facility].2.Look for an invitation email from [facility].3.Open the email and access the invitation link: Accept Invitation to [facility].Fill in the required perez to create your account. Sign into www.[employer] with your username and password that you [...] you will allow to register on the [facility] Patient Portal for access to your information. You can also access the [facility] Patient Portal on the [employer] cristian. Simply click on Health Records under Health Data and then click on the [employer] logo. HOW TO SAFELY DISPOSE OF PRESCRIPTION [...] Call your local pharmacy or go to http://bit.Front Flip/0Q8Of9t to find one close to you.3.Make use of household items: Use cat litter or old coffee grounds to dispose medications if other options are not available. Mix your drugs with these household products, seal them in an airtight container and throw it into the garbage. Call [facility]: [phone] to be sure your drugs can be [...] aware that I should contact my doctor. Patient/Customer Service Rep Signature: Date/Time: Relationship to Patient: ___ Witness Name/Signature: Date/Time: [facility] 12-21-2023 Note ORIGINAL EXAMINATION: ONE XRAY VIEW [...] 12/21/2023 3:28:25 PM Ordering Provider: TABATHA PAGE [facility] 12-21-2023 Note Sinus rhythm Borderline left axis deviation Abnormal R-wave progression, late transition Borderline T abnormalities, anterior leads Baseline wander in lead(s) V4 Electronic Signature: LEONEL PAGEILY DO 12/21/2023 14:45:[address] [facility] 12-18-2023 Telephone encounter Note Shobha from [facility] states there were medications sent for pt yesterday [facility] 12-17-2023 Telephone encounter Note New scripts sent Elsie Kaplan APRN.CNP [facility] 12-17-2023 Miscellaneous Notes New scripts sent Elsie Kaplan APRN.CNP [facility] called and notified of below , Clarence voices understanding. Clarence is going to pass this along to residential. [facility] asking if new scripts can be sent to [facility]? Please review and advise, Lillie Marshall RN Patient needs to be seen to evaluate why this is continuing to occur. Can increase lasix to 40mg and the potassium to 20mg both daily until seen. Thank you Elsie Kaplan APRN.CNP [facility]- [facility]- phoned with patient update: Reports pcp [...] Please advise and phone Clarence with reply: [phone] documented in this encounter [facility] 12-17-2023 Telephone encounter Note [facility] called and notified of below , Clarence voices understanding. Clarence is going to pass this along to residential. Clarence asking if new scripts can be sent to [facility]? Please review and advise, Lillie Marshall RN [facility] 12-17-2023 Telephone encounter Note Patient needs to be seen to evaluate why this is continuing to occur. Can increase lasix to 40mg and the potassium to 20mg both daily until seen. Thank you Elsie Kaplan APRN.CNP [facility] 12-17-2023 Telephone encounter Note Cla[facility]- [facility]- phoned with patient update: Reports pcp [...] Please advise and phone Clarence with reply: [phone] [facility] 12-12-2023 Telephone encounter Note Clarence from [facility] and states that presciption needs to be sent to [facility] and is asking for prescription to be sent to them as well at [phone]. Lillie Marshall RN [facility] 12-12-2023 Miscellaneous Notes Clarence from [facility] and states that presciption needs to be sent to [facility] and is asking for prescription to be sent to them as well at [phone]. Lillie Marshall RN documented in this encounter [facility] 12-12-2023 Telephone encounter Note Cla[facility] notified and voiced his understanding. [facility] 12-12-2023 Miscellaneous Notes [facility] notified and voiced his understanding. Hurt current lasix and potassium dose and give Lasix 40mg daily for the next 3 days and potassium 20meq for the next 3 days as well. Then restart current dose. Follow up if no improvement. Thank you Elsie Kaplan APRN.CNP Clarence from [facility] calling patient weight this morning was 286 pounds. She has increased edema aaron legs, slightly unsteady gait, vitals good, slight shortness of breath with exertion. He said her Furosemide 20 mg one tablet every other day, wearing her compression stockings, using her lymphedema cuffs. Please advise documented in this encounter [facility] 12-12-2023 Telephone encounter Note Hurt current lasix and potassium dose and give Lasix 40mg daily for the next 3 days and potassium 20meq for the next 3 days as well. Then restart current dose. Follow up if no improvement. Thank you Elsie Kaplan APRN.OBED [facility] 12-12-2023 Telephone encounter Note Clarence from [facility] calling patient weight this morning was 286 pounds. She has increased edema aaron legs, slightly unsteady gait, vitals good, slight shortness of breath with exertion. He said her Furosemide 20 mg one tablet every other day, wearing her compression stockings, using her lymphedema cuffs. Please advise [facility] 12-08-2023 Telephone encounter Note Called and updated [facility] voiced understanding. Lacie Reyes LPN December 08, 2023 8:08 AM [facility] 12-08-2023 Miscellaneous Notes Called and updated [facility] voiceluis understanding. Lacie Reyes LPN December 08, 2023 8:08 AM Noted, verbal ok for the same Regards, Sherif Thakur MD Clarence from [facility] calling time for recert longterm services. Patient residential was purchased by another company, nurses will be there more. Patient will be weighed once weekly and log kept to bring to appts. Patient is taking her second antibiotic for cellulitis. Please advise documented in this encounter [facility] 12-05-2023 Telephone encounter Note Noted, verbal ok for the same Regards, Sherif Thakur MD [facility] 12-05-2023 Telephone encounter Note Clarence from [facility] calling time for recert longterm services. Patient residential was purchased by another company, nurses will be there more. Patient will be weighed once weekly and log kept to bring to appts. Patient is taking her second antibiotic for cellulitis. Please advise [facility] 11-24-2023 Telephone encounter Note The patient has [...] ON LEGS AT BEDTIME Pepper Walsh RN [facility] 11-24-2023 Miscellaneous Notes The patient has been [...] Pepper Walsh RN documented in this encounter [facility] 11-18-2023 Note HNO ID: [id number] Author: SHERIF THAKUR MD Service: ? Author [...] (CERTAVITE-ANTIOXIDANT) fluticasone (FLONASE) 50 mcg/actuation nasal spray Atqex-1-LBI-EPA-Fish Oil 1,000 mg (120 mg-180 mg) cap [...] - COMPRESSION STOCK (more content not included)... [facility] 11-18-2023 History of Present illness Narrative [...] (CERTAVITE-ANTIOXIDANT) fluticasone (FLONASE) 50 mcg/actuation nasal spray Cudwu-7-JNJ-EPA-Fish Oil 1,000 mg (120 mg-180 mg) cap [...] Sherif Ganta, MD documented in this encounter [facility] 11-13-2023 Telephone encounter Note Shaunna notified. [facility] 11-13-2023 Miscellaneous Notes Shaunna notified. ----- Message from Elsie Kaplan APRN.CNP sent at 11/13/2023 2:13 PM EDT ----- Please let [facility] home know preliminary result of US is negative for blood clot. Thank you Elsie Kaplan APRN.CNP documented in this encounter [facility] 11-13-2023 Telephone encounter Note ----- Message from Elsie Kaplan APRN.CNP sent at 11/13/2023 2:13 PM EDT ----- Please let [facility] know preliminary result of US is negative for blood clot. Thank you Elsie Kaplan APRN.CNP [facility] 11-13-2023 Telephone encounter Note Discussed in appointment today Elsie Kaplan APRN.FIVE PIECE EXPANSION MAKER HAND [facility] 11-13-2023 Miscellaneous Notes Discussed in appointment today Elsie Kaplan APRN.FIVE PIECE EXPANSION MAKER HAND [facility] called back with more information. He weighed pt today and she weighed 265. She normally weighs 250 to 255. Per Clarence pt may be going to Urgent Care somewhere, he wasn't sure. Pamela Singh LPN Clarence from [facility] calling 2 weeks ago ER put [...] seen by PCP. documented in this encounter [facility] 11-13-2023 Instructions Elsie Kaplan APRN.OBED - 11/13/2023 11:25 AM EDT Take Lasix daily with daily potassium supplement for the next 4 days. Hold multivitamin and calcium while on doxycycline. documented in this encounter [facility] 11-13-2023 Note HNO ID: [id number] Author: ELSIE KAPLAN APRN.OBED Service: ? Author [...] then usual and painful. Went immediately to [place] ER on 10/29. No US completed to [...] INSTILL 2 SPRAYS IN EACH NOSTRIL DAILY Ekggn-5-PIA-EPA-Fish Oil 1,000 mg (120 mg-180 mg) cap [...] ankle. No ope (more content not included)... [facility] 11-13-2023 History of Present illness Narrative CC: Patient presents with: Recheck: ER follow up, cellulitis completed AIB HPI Jose Abdul is a 43 year old female who presents today for cellulitis Unsure if there was injury or what caused infection but noticed while playing basketball that leg was red, hot, more swollen then usual and painful. Went immediately to [place] ER on 10/29. No US completed to [...] INSTILL 2 SPRAYS IN EACH NOSTRIL DAILY Nklma-9-DDH-EPA-Fish Oil 1,000 mg (120 mg-180 mg) cap [...] Aged Out DATA REVIEWED: Outside chart from [facility] reviewed. ASSESSMENT/PLAN: 1. Cellulitis of left lower [...] Elsie Kaplan APRN.OBED documented in this encounter [facility] 11-12-2023 Telephone encounter Note Clarence called back with more information. He weighed pt today and she weighed 265. She normally weighs 250 to 255. Per Clarence pt may be going to Urgent Care somewhere, he wasn't sure. Pamela Singh LPN [facility] 11-12-2023 Telephone encounter Note Clarence from [facility] calling 2 weeks ago ER put [...] this week to be seen by PCP. [facility] 10-10-2023 Telephone encounter Note Phoned [facility] and went over notes below from Dr Thakur with understanding. [facility] 10-10-2023 Miscellaneous Notes Phoned [facility] and went over notes below from Dr Thakur with understanding. Agree Sherif Lassiter MD Clarence from [facility] calling to recert orders for custodial for the patient, if PCP would agree. Please advise documented in this encounter [facility] 10-09-2023 Telephone encounter Note Agree Sherif Lassiter MD [facility] 10-09-2023 Telephone encounter Note Noted and agree Sherif Lassiter MD [facility] 10-09-2023 Miscellaneous Notes Noted and agree Sherif Lassiter MD Stephanie with [facility] calling to update PCP that patient has 3cm open area to her right gonzales. Will keep it open to air and does not feel dressing is necessary. Patient is unsure how she acquired it but does pick at skin. HH Nursing will continue to monitor area. No call back needed, if provider agreeable. Pepper Walsh RN . documented in this encounter [facility] 10-09-2023 Telephone encounter Note [facility] [facility] calling to update PCP that patient has 3cm open area to her right gonzales. Will keep it open to air and does not feel dressing is necessary. Patient is unsure how she acquired it but does pick at skin. HH Nursing will continue to monitor area. No call back needed, if provider agreeable. Pepper Walsh RN . [facility] 10-09-2023 Telephone encounter Note Clarence from [facility] calling to recert orders for custodial for the patient, if PCP would agree. Please advise [facility] 09-19-2023 Telephone encounter Note Prescription Refill Information [...] Cerna LPN September 19, 2023 12:56 PM [facility] 09-19-2023 Miscellaneous Notes Prescription Refill Information The [...] 2023 12:30 PM documented in this encounter [facility] 09-19-2023 Telephone encounter Note Prescription Refill Information [...] Usha Zuniga September 19, 2023 12:30 PM [facility] 08-22-2023 Telephone encounter Note Prescription Refill Information [...] INSTILL 2 SPRAYS IN EACH NOSTRIL DAILY Fcdhi-4-TWV-EPA-Fish Oil 1,000 mg (120 mg-180 mg) cap 31 capsule 10 Sig: Take 1 capsule by mouth once daily. Aaliyah Schofield [facility] August 22, 2023 12:51 PM [facility] Work Phone: 08-22-2023 Miscellaneous Notes Prescription Refill [...] INSTILL 2 SPRAYS IN EACH NOSTRIL DAILY Pgqgj-2-CMW-EPA-Fish Oil 1,000 mg (120 mg-180 mg) cap 31 capsule 10 Sig: Take 1 capsule by mouth once daily. Aaliyah Schofield [facility] August 22, 2023 12:51 PM documented in this encounter [facility] 08-11-2023 Telephone encounter Note Pharmacy request denied. Patient needs to contact office for refills. Aaliyah Gonzalez MA [facility] 08-11-2023 Miscellaneous Notes Pharmacy request denied. Patient needs to contact office for refills. Aaliyah Gonzalez MA documented in this encounter [facility] 08-07-2023 Telephone encounter Note Clarence informed of below. ANUPAMA Lira [facility] 08-07-2023 Miscellaneous Notes Clarence informed of below. ANUPAMA Lira [place] Clarence from [facility] calls to see if provider will continue to follow orders for longterm? Lillie Marshall RN documented in this encounter [facility] 08-07-2023 Telephone encounter Note OK [facility] 08-07-2023 Telephone encounter Note Clarence from [facility] calls to see if provider will continue to follow orders for longterm? Lillie Marshall RN [facility] 08-06-2023 Telephone encounter Note Prescription Refill Information [...] Henderson LPN August 06, 2023 4:16 PM [facility] 08-06-2023 Miscellaneous Notes Prescription Refill Information The [...] you. Monica Grady. documented in this encounter [facility] 08-06-2023 Telephone encounter Note Patient has been [...] primary care: Please advise. Thank you. Monica Grayd. [facility] 07-21-2023 Telephone encounter Note Patient has been [...] Please advise. Thank you. Aaliyah Gonzalez MA. [facility] 07-21-2023 Miscellaneous Notes Patient has been identified [...] patient. Usha Zuniga documented in this encounter [facility] 07-21-2023 Telephone encounter Note Patient has been identified by name and date of : Yes Requested Prescriptions Pending Prescriptions Disp Refills levothyroxine (SYNTHROID) 100 mcg tablet 31 tablet 10 Sig: take one tablet by mouth daily one hour before breakfast RX INSTRUCTIONS: Patient aware RX will be sent to pharmacy. No need to notify patient. Usha Zuniga [facility] 07-08-2023 Telephone encounter Note Patient has been identified by name and date of : No Patient phones for refill(s): Requested Prescriptions Pending Prescriptions Disp Refills DULERA 100-5 mcg/actuation inhaler [Pharmacy Med Name: Dulera 100-5 MCG/ACT Aerosol] 13 g 10 Sig: INHALE 2 PUFFS BY MOUTH TWICE DAILY ( INSTRUCTED) nystatin (NYAMYC) powder [Pharmacy Med Name: Nyamyc [id number] UNIT/GM Powder] 60 g 10 Sig: APPLY TOPICALLY TWICE DAILY TO AFFECTED AREA(S) ON ABDOMINAL FOLDS Date of last office visit in primary care: 03/19/2023 Date of next office visit in primary care: 03/22/2024 Please advise. Thank you. Pascale Henderson LPN. [facility] 07-08-2023 Miscellaneous Notes Patient has been identified by name and date of : No Patient phones for refill(s): Requested Prescriptions Pending Prescriptions Disp Refills DULERA 100-5 mcg/actuation inhaler [Pharmacy Med Name: Dulera 100-5 MCG/ACT Aerosol] 13 g 10 Sig: INHALE 2 PUFFS BY MOUTH TWICE DAILY ( INSTRUCTED) nystatin (NYAMYC) powder [Pharmacy Med Name: Nyamyc [id number] UNIT/GM Powder] 60 g 10 Sig: APPLY TOPICALLY TWICE DAILY TO AFFECTED AREA(S) ON ABDOMINAL FOLDS Date of last office visit in primary care: 03/19/2023 Date of next office visit in primary care: 03/22/2024 Please advise. Thank you. Pascale Henderson LPN. documented in this encounter [facility] 07-08-2023 Telephone encounter Note Patient has been [...] Please advise. Thank you. Pascale Henderson LPN. [facility] 07-08-2023 Miscellaneous Notes Patient has been identified [...] Pascale Henderson LPN. documented in this encounter [facility] 06-13-2023 Miscellaneous Notes Patient has been identified [...] Pascale Henderson LPN. documented in this encounter [facility] 06-02-2023 Miscellaneous Notes Left message for return call. Tried calling senior data warehouse architect, call was dropped. Dulera ordered in equivalent dosing to symbicort. Call residential to give below information and change in [...] call to a nurse. Jose Abdul ([place]: [id number]) - [phone] Budesonide-Formoterol Fumarate 160-4.5MCG/ACT aerosol Status: PA Request Created: March 13, 2023 [id number] Sent: May 26, 2023 Prior Authorization Documentation Prior authorization requested for the following medication: Medication: Symbicort Provider: Teresa Yeung Insurance Company Name: Medicare A/B and Medicaid secondary Insurance Company Phone number: Not listed Patient ID number: Medicare: [id number] Medicaid: [id number] Pharmacy Name: [facility] Telephone number: [phone]. Caregiver calls to request. Reports pharmacy is also faxing request. Eulalia Laureano RN documented in this encounter [facility] 05-30-2023 Miscellaneous Notes Faxed to [facility] as requested. Patient verified by name and . Her care provider, Shaunan Cuenca calling to request a mammogram screening order be faxed to [facility] to complete. She can be reached at [phone] with any questions. Please review and advise. documented in this encounter [facility] 03-19-2023 Note HNO ID: [id number] Author: TERESA YEUNG APRN.FIVE PIECE EXPANSION MAKER HAND Service: ? Author Type: Nurse Practitioner Type: [...] currently lives in a home managed by [place] and is accompanied by a healthcare interpreter today. 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 Other Providers: Podiatry, Dr. Lyubov Fontenot with bird sitter with [facility] Depression Screen Q1: Over the past two weeks, have you felt down, depressed or hopeless? No Q2: Over the past two weeks, have you felt little interest or pleasure in doing things? No Home status: Lives with Current exercise habits: active with special [employer] Dietary habits: Cora pryor Hearing difficulties: no Safe in current home environment: Yes Tobacco: NO ETOH: No CERTIFIED DENTAL ASSISTANT History: LMP: Patient's last menstrual period was [...] BY MOUTH EVERY OTHER DAY FOR LYMPHEDEMA ajywcjp-edwcsbyyy-ulkktyt D3 (OYSTER SHELL CALCIUM-VITAMIN D) 500 mg-5 [...] INSTILL 2 SPRAYS IN EACH NOSTRIL DAILY Khlll-7-HLQ-EPA-Fish Oil 1,000 mg (120 mg-180 mg) cap [...] at 4pm Dx:Q87. (more content not included)... [facility] 02-28-2023 Note HNO ID: [id number] Author: Teresa Yeung APRN.FIVE PIECE EXPANSION MAKER HAND Service: ? Author Type: Nurse Practitioner Type: Progress Notes Filed: 02/28/2023 2:10 PM Note Text: SUBJECTIVE Jose Abdul is a 42 year old female here today for acute concern. Chief Complaint Patient presents with: irriatated spot near vulva HPI Jose Abdul is a 42 year old female. Here today, accompanied by a healthcare interpreter. Concerns of an irritated spot near her [...] BY MOUTH EVERY OTHER DAY FOR LYMPHEDEMA iejduyd-rioqcqxlq-huyfeil D3 (OYSTER SHELL CALCIUM-VITAMIN D) 500 mg-5 [...] INSTILL 2 SPRAYS IN EACH NOSTRIL DAILY Adirq-4-OQO-EPA-Fish Oil 1,000 mg (120 mg-180 mg) cap [...] Hypogonadism (Hcc) - 12/07/2015 Bmi 45.0-49.9, Adult ([facility]) - 02/09/2015 Venous Insufficiency (Chronic) (Peripheral) - 12/14/2014 Acquired Hypothyroidism - 12/14/2014 Obstructive Sleep Apnea Syndrome - 12/14/2014 Comment: Uses her cpap at night daily Vitamin D Deficiency - 11/05/2011 Mild Intermittent Asthma Without Complication Comment: Other Lung Diseases NEC Allergic Rhinitis Comment: Allergic rhinitis 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 [facility] 01-20-2023 Miscellaneous Notes Patient has been identified by name and date of : Yes Patient phones for refill(s): Requested Prescriptions Pending Prescriptions Disp Refills olgzdvr-okxtqsnjq-lhiuguw D3 (OYSTER SHELL CALCIUM-VITAMIN D) 500 mg-5 [...] Yes Requested Prescriptions Pending Prescriptions Disp Refills aogwrwl-eoncombxb-bvfclqk D3 (OYSTER SHELL CALCIUM-VITAMIN D) 500 mg-5 mcg (200 unit) per tablet 62 tablet 5 Sig: Take 1 tablet by mouth two times a day with meals. RX INSTRUCTIONS: Patient aware RX will be sent to pharmacy. No need to notify patient. Aaliyah Schofield Pss documented in this encounter [facility] 12-12-2022 Miscellaneous Notes Patient has been identified [...] advise. Mima Royal documented in this encounter [facility] 12-05-2022 History of Present illness Narrative Food/Nutrition related history: [facility] GeneticsNutrition Assessment in PWS ClinicDate of Visit: [...] HISTORY AND INTAKE:Pt and caregiver (Anali - Palliative Care Nurse Practitioner) present in out-patient PWS clinic for a scheduled f/u clinic visit. 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 The Detention sends packed meals home with her.Food Seeking [...] 42yo female with know PWS. Pt has eynbuz8fud since last year. May be worth exploring [...] and report to dietitian- Send copies of Detention Food Menus and pts actual % of [...] to follow and reassess as needed or hoaogixmlRmpt-wc-Qmqr Time and Units: Time: 30 minutes/Units: 2Kcarmel Ly, MS, RD, LDN l Sr. Genetics Dietitian l Clinical Dietitian, Advance Practice l l [facility] Hospital[facility] Dietitian's Office: ; ; Email: [email or web address] tics/Scheduling: ; ; Urgent Doctor On-Call: [phone] Tequila Vinson. [address] [id number] Inpatient Services Director Provider: Marisol Mohamud MD. [address] Work Phone: 10-25-2022 Miscellaneous Notes In review of chart, patient was seen in office 10/23/22 by Keren Kaplan. Closing encounter as nothing further needed at this time. ANUPAMA Lira Left message for return call Please see how patient is doing? If asymptomatic, can just continue with every other day. Thank you Elsie Kaplan APRN.FIVE PIECE EXPANSION MAKER HAND Anali calling back to check status. Routing to energy control officer due to medication issues. Pamela Singh LPN Staff member eneida Martell, dose of Lasix 20mg & Potassium 10 mEq today. Patient is to get medication every other day, it is one day early. Patient went to Workshop today, should be home within next 30 minutes, Detention has not receive a call re: Patient today. Please review & advise. Mackenzie Elmore LPN documented in this encounter [facility] 10-23-2022 History of Present illness Narrative CC: [...] INSTILL 2 SPRAYS IN EACH NOSTRIL DAILY Iahue-7-ARN-EPA-Fish Oil 1,000 mg (120 mg-180 mg) cap [...] TO AFFECTED AREA(S) ON LEGS AT BEDTIME qqtyxzw-mkuxmwkvp-lzwqotv D3 (OYSTER SHELL CALCIUM-VITAMIN D) 500 mg(1,250mg) [...] Elsie Kaplan APRN.CNP documented in this encounter [facility] 10-23-2022 Miscellaneous Notes Patient has been identified [...] Candelaria Ball LPN documented in this encounter [facility] 10-10-2022 Miscellaneous Notes Clarence Hurtado with [facility] in [place] called in to verify that Pt was still under providers care. documented in this encounter [facility] 08-26-2022 Miscellaneous Notes Last office visit: 07/01/22 [...] patient. Usha Zuniga documented in this encounter [facility] 08-07-2022 Miscellaneous Notes Patient has been identified by name and date of : No Patient phones for refill(s): Requested Prescriptions Pending Prescriptions Disp Refills fluticasone (FLONASE) 50 mcg/actuation nasal spray [Pharmacy Med Name: Fluticasone Propionate 50 MCG/ACT Suspension] 16 g 10 Sig: INSTILL 2 SPRAYS IN EACH NOSTRIL DAILY Kyhyb-2-KZY-EPA-Fish Oil 1,000 mg (120 mg-180 mg) cap [Pharmacy Med Name: Idamay-3 1000 MG Capsule] 31 capsule 10 Sig: [...] Pascale Lorenzo LPN documented in this encounter [facility] 07-18-2022 Miscellaneous Notes Patient has been identified [...] advise. Pepper Royal documented in this encounter [facility] 06-06-2022 Miscellaneous Notes Medication or Treatment Administration Consent form signed by Dr. Thakur. Joniacatscott Briones the senior data warehouse architect notified form is ready for pickup. Form taken to Medical records. documented in this encounter [facility] 06-04-2022 Miscellaneous Notes Patient has been identified [...] Mackenzie Elmore LPN documented in this encounter [facility] 05-16-2022 Miscellaneous Notes Last Office Visit: 05/02/2022 [...] Last Labs: 12/13/2021 documented in this encounter [facility] 05-02-2022 History of Present illness Narrative Reason [...] a duplex near by her mother in [place] a couple years ago and is actually [...] cream ammonium lactate (LAC-HYDRIN) 12 % cream wtnscpu-nqotlnrrk-benvhls D3 (OYSTER SHELL CALCIUM-VITAMIN D) 500 mg(1,250mg) [...] diet of 1000 mg/day for under 50, 0315-9865 mg/day for 50+ 2. Hypothalamic hypogonadism (HCC) [...] Sherif Thakur MD documented in this encounter [facility] 03-21-2022 History of Present illness Narrative CC: [...] ON LEGS AT BEDTIME^Disp: 280 g^Rfl: 10 npteofq-usghadbak-hgldnwf D3 (OYSTER SHELL CALCIUM-VITAMIN D) 500 mg(1,250mg) [...] Elsie Kaplan APRN.OBED documented in this encounter [facility] 02-05-2022 Miscellaneous Notes Patient has been identified [...] Pascale Lorenzo LPN documented in this encounter [facility] 01-29-2022 History of Present illness Narrative Reason [...] cream ammonium lactate (LAC-HYDRIN) 12 % cream brivpfj-xsxiwnuac-wnhncsw D3 (OYSTER SHELL CALCIUM-VITAMIN D) 500 mg(1,250mg) [...] Sherif Thakur MD documented in this encounter [facility] 01-23-2022 Miscellaneous Notes Taken to medical records. Anali notified. Regan Neville Ma Patient caregiver Anali calling to check status of request for handicap placard rx renewal rx. Patient healthcare interpreter Anali calling to check status of request. Anali (senior data warehouse architect) calls to request 2 handicap placards for patient. Anali will pickup driver in medical records if provider agrees. Pended. Eulalia Laureano, RN documented in this encounter [facility] 12-13-2021 Miscellaneous Notes Clarence Hurtado with [facility] calling to confirm PCP for patient. Information confirmed. Pepper Walsh RN documented in this encounter [facility] 11-29-2021 Miscellaneous Notes Anali, senior data warehouse architect notified. Talked to genetecist carrington - Please [...] speak with PCP. Please call him at [phone] between 12-3 PM today. documented in this encounter [facility] 11-08-2021 History of Present illness Narrative PWS Roldan is a 42 year old female who has presented to the PWS multidisciplinary clinic at [facility]. She is accompanied by her senior data warehouse architect, Anali. History was obtained by the patient, [...] in the past.PCP: Dr. Sherif Thakur at [facility], fax number [phone], is currently seeing an ASSET PROTECTION ASSISTANT named Older at this officeInterval History: She [...] and Friday, where she works out (e.g., [employer], [employer]) half a day. She just received a [...] records - they may be accessible on Tutor, and will hopefully be more available on [employer].- Seeing Gynecology for OCP (for bone health). [...] Anali- We plan to call the group therapy counselor Gayla to discuss her care, and will recommend the patient's mother come with her to future visits as well.ROS negative if not mentioned above, pertinent positives in HPI. [address] Work Phone: 10-29-2021 History of Present [...] cream ammonium lactate (LAC-HYDRIN) 12 % cream lurvcls-mmkxtkebb-qywtwtd D3 (OYSTER SHELL CALCIUM-VITAMIN D) 500 mg(1,250mg) [...] Sherif Thakur MD documented in this encounter [facility] 09-20-2021 Miscellaneous Notes Patient has been identified by name and date of : Yes Patient phones for refill(s): Pending Prescriptions Disp Refills POTASSIUM CHLORIDE ER 10 MEQ TABLET,EXTENDED RELEASE 45 tablet 2 Sig: Take one tablet on days when you are taking lasix. NAIMA: No Refused Prescriptions Disp Refills Fish Oil-Idamay-3 Fatty Acids (FISH OIL) 340-1,000 mg cap 31 capsule 10 Sig: Take 1 capsule by mouth once daily. NAIMA: No levothyroxine (SYNTHROID) 100 mcg tablet 31 tablet 10 NAIMA: No Date of last office visit in primary care: 06/28/21 Please advise. Thank you. Alexia Prater LPN documented in this encounter [facility] 09-04-2021 Miscellaneous Notes NOV 10/29/21 POLA 08/20/21 Patient electronically sent a request for the following prescription(s) Pending Prescriptions Disp Refills LEVOTHYROXINE 100 MCG TABLET 31 tablet 10 Sig: TAKE ONE TABLET BY MOUTH DAILY ONE HOUR BEFORE BREAKFAST NAIMA: Yes Patient aware RX will be sent to pharmacy. No need to notify patient. Please review. Alexia Lin MA documented in this encounter [facility] 08-31-2021 Miscellaneous Notes Leyda notified. Ok to continue with therapy. Thank you Elsie Kaplan APRN.OBED Leyda calling to check on status of request. Advised provider out of office Th and Fri. Routing to ASSET PROTECTION ASSISTANT. Yazan Franco LPN RODRÍGUEZ Crabtree @ [facility] calling to let PCP know patient was recertified for continued nursing visits 1 x/week for nine weeks for weekly skin checks. Asking for verbal saying Dr. Thakur agrees and will continue to follow orders. #[phone]. Annie Brand RN documented in this encounter [facility] 08-20-2021 History of Present illness Narrative Images [...] PUFFS BY MOUTH TWICE DAILY ( INSTRUCTED) *[facility] [employer] [place] Lymphedema massage therapy IRAIDA 0.35 mg tablet [...] TO AFFECTED AREA(S) ON LEGS AT BEDTIME whzeote-uqlruvdum-sutbhwf D3 (OYSTER SHELL CALCIUM-VITAMIN D) 500 mg(1,250mg) [...] Rae Kaplan APRN.CNP documented in this encounter [facility] 08-20-2021 Instructions Rae Kaplan APRN.CNP - 08/20/2021 3:59 PM EDT Keep area(s) clean and dry. Apply Lotrisone cream twice a day If any unusual pain, swelling, red streaks, pus, fever or other signs of worsening infection, call immediately. documented in this encounter [facility] 08-14-2021 Miscellaneous Notes NOV 08/17/21 POLA 06/28/21 [...] Alexia Lin MA documented in this encounter [facility] 07-06-2021 Miscellaneous Notes Order has been faxed. Pascale Lorenzo LPN Yes Vikki MAZA from [facility] calls and is asking if provider will write an order for Lymphedema massage therapy treatment? If agreeable please fax order to either: Or Lillie Marshall RN documented in this encounter [facility] 06-28-2021 Miscellaneous Notes Patient is having home Physical Therapy evaluate her We will get back with details if that changes Thanks for reaching out Tong in Physical Therapy asking for patient diagnosis for Physical Therapy order. He is also asking for clarification of what specifically PT is to evaluate. Order does not specify area of concern. Annie Brand RN documented in this encounter [facility] 06-28-2021 History of Present illness Narrative Reason [...] cream ammonium lactate (LAC-HYDRIN) 12 % cream hbrsmrh-fwkozcsgt-kjernwa D3 (OYSTER SHELL CALCIUM-VITAMIN D) 500 mg(1,250mg) -200 unit per tablet potassium chloride (K-TAB) 10 mEq tablet CERTAVITE-ANTIOXIDANT levothyroxine (SYNTHROID) 100 mcg tablet Gauze Bandage 2 X 2 bndg Desogestrel-Ethinyl Estradiol (APRI) 0.15-0.03 mg per tablet fluticasone (FLONASE) 50 mcg/actuation nasal spray Fish Oil-Idamay-3 Fatty Acids (FISH OIL) 340-1,000 mg cap [...] Sherif Thakur MD documented in this encounter [facility] 06-22-2021 Miscellaneous Notes Brianna notified and verbalized understanding. Kristie Khan Ma Agree with below. Jacquelyn Allen APRN.CNP Brianna Moise with [facility] called and states they were contacted to have nursing come into the residential for pt weekly. This will be for skin issues and weight issues. Pt was identified with name and date of . Requesting the followin. verbal order to start care in the home weekly. Okay to leave a message 2. fax last OV for PCP - 04/23/21 to [phone]. This has been faxed. Pamela Singh LPN documented in this encounter [facility] 06-14-2021 Miscellaneous Notes Ready for pickup driver in Medical Records. Forms received and placed on PCP desk for review. Has this paperwork been received? Thank you Elsie Kaplan APRN.FIVE PIECE EXPANSION MAKER HAND Pt's caregiver Anali asking if the paperwork that she dropped off last week is completed yet? For is for pt to use her epi pen while at the workshop. Mima Parson LPN documented in this encounter [facility] 06-06-2021 Miscellaneous Notes manager surgery notified ----- Message from Sherif Thakur MD sent at 06/01/2021 5:32 PM EDT ----- Hip joint and synovium are normal documented in this encounter [facility] 02-15-2021 Note HNO ID: [id number] Author: Ricki Hirsch MD Service: ? Author [...] needed basis. This note was generated with [employer] dictation software. It may contain incorrect words, spelling, and punctuation and that were not noted in review of the chart prior to signing. I spent 15 minutes in the visit, with more than 50% of the total haoc-af-mggj time of the visit in counseling / coordination of care. Recommendations: #1 continue lymphedema pumping #2 continue lymphedema wraps #3 check with primary care physician and if no contraindications begin enteric-coated baby aspirin on a daily basis. [facility] 01-18-2021 Note HNO ID: [id number] Author: Ricki Hirsch MD Service: ? Author [...] a month. This note was generated with [employer] dictation software. It may contain incorrect words, spelling, and punctuation and that were not noted in review of the chart prior to signing. I spent 15 minutes in the visit, with more than 50% of the total uers-zr-tisf time of the visit in counseling / coordination of care. [facility] 01-16-2016 History of Past i llness Narrative Problem Noted Date Resolved Date Venous stasis ulcers 01/16/2016 06/17/2016 BMI 40.0-44.9, adult 12/14/2014 02/09/2015 BMI 50.0-59.9, adult 10/11/2013 12/14/2014 Other lymphedema 04/26/2013 12/14/2014 Mental status change 01/08/2013 12/13/2013 Overview: Transient mental status change; [facility], 12/09/12 Amenorrhea 06/18/2011 12/07/2015 Open wound [...] of this encounter (statuses as of 06/06/2021) [facility] of [facility] illness Narrative* Problem Noted Date Resolved Date Venous stasis ulcers 01/16/2016 06/17/2016 BMI 40.0-44.9, adult 12/14/2014 02/09/2015 BMI 50.0-59.9, adult 10/11/2013 12/14/2014 Other lymphedema 04/26/2013 12/14/2014 Mental status change 01/08/2013 12/13/2013 Overview: Transient mental status change; [facility], 12/09/12 Amenorrhea 06/18/2011 12/07/2015 Open wound [...] of this encounter (statuses as of 06/14/2021) [facility] History of Past illness Narrative* Problem Noted Date Resolved Date Venous stasis ulcers 01/16/2016 06/17/2016 BMI 40.0-44.9, adult 12/14/2014 02/09/2015 BMI 50.0-59.9, adult 10/11/2013 12/14/2014 Other lymphedema 04/26/2013 12/14/2014 Mental status change 01/08/2013 12/13/2013 Overview: Transient mental status change; [facility], 12/09/12 Amenorrhea 06/18/2011 12/07/2015 Open wound [...] of this encounter (statuses as of 06/22/2021) [facility] History of Past illness Narrative* Problem Noted Date Resolved Date Venous stasis ulcers 01/16/2016 06/17/2016 BMI 40.0-44.9, adult 12/14/2014 02/09/2015 BMI 50.0-59.9, adult 10/11/2013 12/14/2014 Other lymphedema 04/26/2013 12/14/2014 Mental status change 01/08/2013 12/13/2013 Overview: Transient mental status change; [facility], 12/09/12 Amenorrhea 06/18/2011 12/07/2015 Open wound [...] of this encounter (statuses as of 06/28/2021) [facility] History of Past illness Narrative* Problem Noted Date Resolved Date Venous stasis ulcers 01/16/2016 06/17/2016 BMI 40.0-44.9, adult 12/14/2014 02/09/2015 BMI 50.0-59.9, adult 10/11/2013 12/14/2014 Other lymphedema 04/26/2013 12/14/2014 Mental status change 01/08/2013 12/13/2013 Overview: Transient mental status change; [facility], 12/09/12 Amenorrhea 06/18/2011 12/07/2015 Open wound [...] of this encounter (statuses as of 06/28/2021) [facility] History of Past illness Narrative* Problem Noted Date Resolved Date Venous stasis ulcers 01/16/2016 06/17/2016 BMI 40.0-44.9, adult 12/14/2014 02/09/2015 BMI 50.0-59.9, adult 10/11/2013 12/14/2014 Other lymphedema 04/26/2013 12/14/2014 Mental status change 01/08/2013 12/13/2013 Overview: Transient mental status change; [facility], 12/09/12 Amenorrhea 06/18/2011 12/07/2015 Open wound [...] of this encounter (statuses as of 07/06/2021) [facility] History of Past illness Narrative* Problem Noted Date Resolved Date Venous stasis ulcers 01/16/2016 06/17/2016 BMI 40.0-44.9, adult 12/14/2014 02/09/2015 BMI 50.0-59.9, adult 10/11/2013 12/14/2014 Other lymphedema 04/26/2013 12/14/2014 Mental status change 01/08/2013 12/13/2013 Overview: Transient mental status change; [facility], 12/09/12 Amenorrhea 06/18/2011 12/07/2015 Open wound [...] of this encounter (statuses as of 08/15/2021) [facility] History of Past illness Narrative* Problem Noted Date Resolved Date Venous stasis ulcers 01/16/2016 06/17/2016 BMI 40.0-44.9, adult 12/14/2014 02/09/2015 BMI 50.0-59.9, adult 10/11/2013 12/14/2014 Other lymphedema 04/26/2013 12/14/2014 Mental status change 01/08/2013 12/13/2013 Overview: Transient mental status change; [facility], 12/09/12 Amenorrhea 06/18/2011 12/07/2015 Open wound [...] of this encounter (statuses as of 08/20/2021) [facility] History of Past illness Narrative* Problem Noted Date Resolved Date Venous stasis ulcers 01/16/2016 06/17/2016 BMI 40.0-44.9, adult 12/14/2014 02/09/2015 BMI 50.0-59.9, adult 10/11/2013 12/14/2014 Other lymphedema 04/26/2013 12/14/2014 Mental status change 01/08/2013 12/13/2013 Overview: Transient mental status change; [facility], 12/09/12 Amenorrhea 06/18/2011 12/07/2015 Open wound [...] of this encounter (statuses as of 08/31/2021) [facility] History of Past illness Narrative* Problem Noted Date Resolved Date Venous stasis ulcers 01/16/2016 06/17/2016 BMI 40.0-44.9, adult 12/14/2014 02/09/2015 BMI 50.0-59.9, adult 10/11/2013 12/14/2014 Other lymphedema 04/26/2013 12/14/2014 Mental status change 01/08/2013 12/13/2013 Overview: Transient mental status change; [facility], 12/09/12 Amenorrhea 06/18/2011 12/07/2015 Open wound [...] of this encounter (statuses as of 09/05/2021) [facility] History of Past illness Narrative* Problem Noted Date Resolved Date Venous stasis ulcers 01/16/2016 06/17/2016 BMI 40.0-44.9, adult 12/14/2014 02/09/2015 BMI 50.0-59.9, adult 10/11/2013 12/14/2014 Other lymphedema 04/26/2013 12/14/2014 Mental status change 01/08/2013 12/13/2013 Overview: Transient mental status change; [facility], 12/09/12 Amenorrhea 06/18/2011 12/07/2015 Open wound [...] of this encounter (statuses as of 09/20/2021) [facility] History of Past illness Narrative* Problem Noted Date Resolved Date Venous stasis ulcers 01/16/2016 06/17/2016 BMI 40.0-44.9, adult 12/14/2014 02/09/2015 BMI 50.0-59.9, adult 10/11/2013 12/14/2014 Other lymphedema 04/26/2013 12/14/2014 Mental status change 01/08/2013 12/13/2013 Overview: Transient mental status change; [facility], 12/09/12 Amenorrhea 06/18/2011 12/07/2015 Open wound [...] of this encounter (statuses as of 10/29/2021) [facility] History of Past illness Narrative* Problem Noted Date Resolved Date Venous stasis ulcers 01/16/2016 06/17/2016 BMI 40.0-44.9, adult 12/14/2014 02/09/2015 BMI 50.0-59.9, adult 10/11/2013 12/14/2014 Other lymphedema 04/26/2013 12/14/2014 Mental status change 01/08/2013 12/13/2013 Overview: Transient mental status change; [facility], 12/09/12 Amenorrhea 06/18/2011 12/07/2015 Open wound [...] of this encounter (statuses as of 11/29/2021) [facility] History of Past illness Narrative* Problem Noted Date Resolved Date Venous stasis ulcers 01/16/2016 06/17/2016 BMI 40.0-44.9, adult 12/14/2014 02/09/2015 BMI 50.0-59.9, adult 10/11/2013 12/14/2014 Other lymphedema 04/26/2013 12/14/2014 Mental status change 01/08/2013 12/13/2013 Overview: Transient mental status change; [facility], 12/09/12 Amenorrhea 06/18/2011 12/07/2015 Open wound [...] of this encounter (statuses as of 12/13/2021) [facility] History of Past illness Narrative* Problem Noted Date Resolved Date Venous stasis ulcers 01/16/2016 06/17/2016 BMI 40.0-44.9, adult 12/14/2014 02/09/2015 BMI 50.0-59.9, adult 10/11/2013 12/14/2014 Other lymphedema 04/26/2013 12/14/2014 Mental status change 01/08/2013 12/13/2013 Overview: Transient mental status change; [facility], 12/09/12 Amenorrhea 06/18/2011 12/07/2015 Open wound [...] of this encounter (statuses as of 01/23/2022) [facility] History of Past illness Narrative* Problem Noted Date Resolved Date Venous stasis ulcers 01/16/2016 06/17/2016 BMI 40.0-44.9, adult 12/14/2014 02/09/2015 BMI 50.0-59.9, adult 10/11/2013 12/14/2014 Other lymphedema 04/26/2013 12/14/2014 Mental status change 01/08/2013 12/13/2013 Overview: Transient mental status change; [facility], 12/09/12 Amenorrhea 06/18/2011 12/07/2015 Open wound [...] of this encounter (statuses as of 01/29/2022) [facility] History of Past illness Narrative* Problem Noted Date Resolved Date Venous stasis ulcers 01/16/2016 06/17/2016 BMI 40.0-44.9, adult 12/14/2014 02/09/2015 BMI 50.0-59.9, adult 10/11/2013 12/14/2014 Other lymphedema 04/26/2013 12/14/2014 Mental status change 01/08/2013 12/13/2013 Overview: Transient mental status change; [facility], 12/09/12 Amenorrhea 06/18/2011 12/07/2015 Open wound [...] of this encounter (statuses as of 02/06/2022) [facility] History of Past illness Narrative* Problem Noted Date Resolved Date Venous stasis ulcers 01/16/2016 06/17/2016 BMI 40.0-44.9, adult 12/14/2014 02/09/2015 BMI 50.0-59.9, adult 10/11/2013 12/14/2014 Other lymphedema 04/26/2013 12/14/2014 Mental status change 01/08/2013 12/13/2013 Overview: Transient mental status change; [facility], 12/09/12 Amenorrhea 06/18/2011 12/07/2015 Open wound [...] of this encounter (statuses as of 03/22/2022) [facility] History of Past illness Narrative* Problem Noted Date Resolved Date Venous stasis ulcers 01/16/2016 06/17/2016 BMI 40.0-44.9, adult 12/14/2014 02/09/2015 BMI 50.0-59.9, adult 10/11/2013 12/14/2014 Other lymphedema 04/26/2013 12/14/2014 Mental status change 01/08/2013 12/13/2013 Overview: Transient mental status change; [facility], 12/09/12 Amenorrhea 06/18/2011 12/07/2015 Open wound [...] of this encounter (statuses as of 05/02/2022) [facility] History of Past illness Narrative* Problem Noted Date Resolved Date Venous stasis ulcers 01/16/2016 06/17/2016 BMI 40.0-44.9, adult 12/14/2014 02/09/2015 BMI 50.0-59.9, adult 10/11/2013 12/14/2014 Other lymphedema 04/26/2013 12/14/2014 Mental status change 01/08/2013 12/13/2013 Overview: Transient mental status change; [facility], 12/09/12 Amenorrhea 06/18/2011 12/07/2015 Open wound [...] of this encounter (statuses as of 05/17/2022) [facility] History of Past illness Narrative* Problem Noted Date Resolved Date Venous stasis ulcers 01/16/2016 06/17/2016 BMI 40.0-44.9, adult 12/14/2014 02/09/2015 BMI 50.0-59.9, adult 10/11/2013 12/14/2014 Other lymphedema 04/26/2013 12/14/2014 Mental status change 01/08/2013 12/13/2013 Overview: Transient mental status change; [facility], 12/09/12 Amenorrhea 06/18/2011 12/07/2015 Open wound [...] of this encounter (statuses as of 06/06/2022) [facility] History of Past illness Narrative* Problem Noted Date Resolved Date Venous stasis ulcers 01/16/2016 06/17/2016 BMI 40.0-44.9, adult 12/14/2014 02/09/2015 BMI 50.0-59.9, adult 10/11/2013 12/14/2014 Other lymphedema 04/26/2013 12/14/2014 Mental status change 01/08/2013 12/13/2013 Overview: Transient mental status change; [facility], 12/09/12 Amenorrhea 06/18/2011 12/07/2015 Open wound [...] of this encounter (statuses as of 07/18/2022) [facility] History of Past illness Narrative* Problem Noted Date Resolved Date Venous stasis ulcers 01/16/2016 06/17/2016 BMI 40.0-44.9, adult 12/14/2014 02/09/2015 BMI 50.0-59.9, adult 10/11/2013 12/14/2014 Other lymphedema 04/26/2013 12/14/2014 Mental status change 01/08/2013 12/13/2013 Overview: Transient mental status change; [facility], 12/09/12 Amenorrhea 06/18/2011 12/07/2015 Open wound [...] of this encounter (statuses as of 08/08/2022) [facility] History of Past illness Narrative* Problem Noted Date Resolved Date Venous stasis ulcers 01/16/2016 06/17/2016 BMI 40.0-44.9, adult 12/14/2014 02/09/2015 BMI 50.0-59.9, adult 10/11/2013 12/14/2014 Other lymphedema 04/26/2013 12/14/2014 Mental status change 01/08/2013 12/13/2013 Overview: Transient mental status change; [facility], 12/09/12 Amenorrhea 06/18/2011 12/07/2015 Open wound [...] of this encounter (statuses as of 08/23/2022) [facility] History of Past illness Narrative* Problem Noted Date Resolved Date Venous stasis ulcers 01/16/2016 06/17/2016 BMI 40.0-44.9, adult 12/14/2014 02/09/2015 BMI 50.0-59.9, adult 10/11/2013 12/14/2014 Other lymphedema 04/26/2013 12/14/2014 Mental status change 01/08/2013 12/13/2013 Overview: Transient mental status change; [facility], 12/09/12 Amenorrhea 06/18/2011 12/07/2015 Open wound [...] of this encounter (statuses as of 08/27/2022) [facility] History of Past illness Narrative* Problem Noted Date Diagnosed Date Resolved Date Venous stasis ulcers 01/16/2016 017 BMI 40.0-44.9, adult 12/14/2014 015 BMI 50.0-59.9, adult 10/11/2013 015 Other lymphedema 04/26/2013 12/14/2014 Mental status change 01/08/2013 014 Overview: Transient mental status change; [facility], 12/09/12 Amenorrhea 06/18/2011 12/07/2015 Open wound [...] of this encounter (statuses as of 10/10/2022) [facility] History of Past illness Narrative* Problem Noted Date Diagnosed Date Resolved Date Venous stasis ulcers 01/16/2016 017 BMI 40.0-44.9, adult 12/14/2014 015 BMI 50.0-59.9, adult 10/11/2013 015 Other lymphedema 04/26/2013 12/14/2014 Mental status change 01/08/2013 014 Overview: Transient mental status change; [facility], 12/09/12 Amenorrhea 06/18/2011 12/07/2015 Open wound [...] of this encounter (statuses as of 10/11/2022) [facility] History of Past illness Narrative* Problem Noted Date Diagnosed Date Resolved Date Venous stasis ulcers 01/16/2016 017 BMI 40.0-44.9, adult 12/14/2014 015 BMI 50.0-59.9, adult 10/11/2013 015 Other lymphedema 04/26/2013 12/14/2014 Mental status change 01/08/2013 014 Overview: Transient mental status change; [facility], 12/09/12 Amenorrhea 06/18/2011 12/07/2015 Open wound [...] of this encounter (statuses as of 10/24/2022) [facility] History of Past illness Narrative* Problem Noted Date Diagnosed Date Resolved Date Venous stasis ulcers 01/16/2016 017 BMI 40.0-44.9, adult 12/14/2014 015 BMI 50.0-59.9, adult 10/11/2013 015 Other lymphedema 04/26/2013 12/14/2014 Mental status change 01/08/2013 014 Overview: Transient mental status change; [facility], 12/09/12 Amenorrhea 06/18/2011 12/07/2015 Open wound [...] of this encounter (statuses as of 10/25/2022) [facility] History of Past illness Narrative* Problem Noted Date Diagnosed Date Resolved Date Venous stasis ulcers 01/16/2016 017 BMI 40.0-44.9, adult 12/14/2014 015 BMI 50.0-59.9, adult 10/11/2013 015 Other lymphedema 04/26/2013 12/14/2014 Mental status change 01/08/2013 014 Overview: Transient mental status change; [facility], 12/09/12 Amenorrhea 06/18/2011 12/07/2015 Open wound [...] of this encounter (statuses as of 10/29/2022) [facility] History of Past illness Narrative* Problem Noted Date Diagnosed Date Resolved Date Venous stasis ulcers 01/16/2016 017 BMI 40.0-44.9, adult 12/14/2014 015 BMI 50.0-59.9, adult 10/11/2013 015 Other lymphedema 04/26/2013 12/14/2014 Mental status change 01/08/2013 014 Overview: Transient mental status change; [facility], 12/09/12 Amenorrhea 06/18/2011 12/07/2015 Open wound [...] of this encounter (statuses as of 12/14/2022) [facility] History of Past illness Narrative* Problem Noted Date Diagnosed Date Resolved Date Venous stasis ulcers 01/16/2016 017 BMI 40.0-44.9, adult 12/14/2014 015 BMI 50.0-59.9, adult 10/11/2013 015 Other lymphedema 04/26/2013 12/14/2014 Mental status change 01/08/2013 014 Overview: Transient mental status change; [facility], 12/09/12 Amenorrhea 06/18/2011 12/07/2015 Open wound [...] of this encounter (statuses as of 01/21/2023) [facility] History of Past illness Narrative* Problem Noted Date Diagnosed Date Resolved Date Venous stasis ulcers 01/16/2016 017 BMI 40.0-44.9, adult 12/14/2014 015 BMI 50.0-59.9, adult 10/11/2013 015 Other lymphedema 04/26/2013 12/14/2014 Mental status change 01/08/2013 014 Overview: Transient mental status change; [facility], 12/09/12 Amenorrhea 06/18/2011 12/07/2015 Open wound [...] of this encounter (statuses as of 02/04/2023) [facility] History of Past illness Narrative* Problem Noted Date Diagnosed Date Resolved Date Venous stasis ulcers 01/16/2016 017 BMI 45.0-49.9, adult 02/09/2015 024 BMI 40.0-44.9, adult 12/14/2014 015 BMI 50.0-59.9, adult 10/11/2013 015 Other lymphedema 04/26/2013 12/14/2014 Mental status change 01/08/2013 014 Overview: Transient mental status change; [facility], 12/09/12 Amenorrhea 06/18/2011 12/07/2015 Open wound [...] of this encounter (statuses as of 05/30/2023) [facility] History of Past illness Narrative* Problem Noted Date Diagnosed Date Resolved Date Venous stasis ulcers 01/16/2016 017 BMI 45.0-49.9, adult 02/09/2015 024 BMI 40.0-44.9, adult 12/14/2014 015 BMI 50.0-59.9, adult 10/11/2013 015 Other lymphedema 04/26/2013 12/14/2014 Mental status change 01/08/2013 014 Overview: Transient mental status change; [facility], 12/09/12 Amenorrhea 06/18/2011 12/07/2015 Open wound [...] of this encounter (statuses as of 06/10/2023) [facility] of Past illness Narrative* Problem Noted Date Diagnosed Date Resolved Date Venous stasis ulcers 01/16/2016 017 BMI 45.0-49.9, adult 02/09/2015 024 BMI 40.0-44.9, adult 12/14/2014 015 BMI 50.0-59.9, adult 10/11/2013 015 Other lymphedema 04/26/2013 12/14/2014 Mental status change 01/08/2013 014 Overview: Transient mental status change; [facility], 12/09/12 Amenorrhea 06/18/2011 12/07/2015 Open wound [...] of this encounter (statuses as of 06/13/2023) [facility] + Plan note No data available for this section [facility] Donaldelisabet Doty Evaluation note* Diagnosis Prader-Willi syndrome- Primary SOB (shortness of breath) Shortness of breath Physical therapy evaluation, initial Other specified examination documented in this encounter [facility] note* Diagnosis Lymphedema- Primary Other lymphedema Prader-Willi syndrome documented in this encounter [facility] note* Diagnosis Skin ulcer of left thigh, limited to breakdown of skin (HCC)- Primary documented in this encounter [facility] note* Diagnosis Lymphedema Other lymphedema documented in this encounter [facility] note* Diagnosis Prader-Willi syndrome- Primary Skin ulcer, limited to breakdown of skin (HCC) Pedal edema Edema Mild persistent asthma without complication Unspecified asthma Obstructive sleep apnea syndrome Obstructive sleep apnea (adult) (pediatric) documented in this encounter [facility] note* Diagnosis Prader-Willi syndrome- Primary Lipid screening Screening for lipoid disorders Encounter for screening for diabetes mellitus Screening for diabetes mellitus Vitamin D deficiency Unspecified vitamin D deficiency Elevated blood sugar Other abnormal glucose Hypothyroidism, unspecified type documented in this encounter [facility] note* Diagnosis Obstructive sleep apnea syndrome- Primary Obstructive sleep apnea (adult) (pediatric) Encounter for immunization Need for other specified prophylactic vaccination against single bacterial disease Mild intermittent asthma without complication Unspecified asthma Acquired hypothyroidism Unspecified hypothyroidism Lymphedema of right lower extremity Lymphedema of left lower extremity Sleep deprivation Problems related to lack of adequate sleep documented in this encounter [facility] note* Diagnosis Lymphedema Other lymphedema documented in this encounter [facility] note* Diagnosis Bilateral chronic knee pain- Primary Pain in joint, lower leg Acute cough documented in this encounter [facility] note* Diagnosis Annual physical exam- Primary Routine general medical examination at a health care facility 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 Obstructive sleep apnea syndrome Obstructive sleep apnea (adult) (pediatric) Mild intermittent asthma without complication Unspecified asthma Acquired hypothyroidism Unspecified hypothyroidism Lymphedema of left lower extremity documented in this encounter [facility] note* Diagnosis 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 Bee allergy status Allergy to insects and arachnids documented in this encounter [facility] note* Diagnosis Strain of lumbar region, subsequent encounter [facility]* Diagnosis Strain of lumbar region, subsequent encounter [facility]* Diagnosis Medication management Encounter for long-term (current) use of other medications Acquired hypothyroidism Unspecified hypothyroidism documented in this encounter [facility] note* Diagnosis Lymphedema- Primary Other lymphedema Obstructive sleep apnea syndrome Obstructive sleep apnea (adult) (pediatric) Acquired hypothyroidism Unspecified hypothyroidism Mild intermittent asthma without complication Unspecified asthma documented in this encounter [facility] note* Diagnosis Bronchitis Bronchitis, not specified as acute or chronic [facility] Diagnosis 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 Bee allergy status Allergy to insects and arachnids [facility] Diagnosis Hypothalamic hypogonadism (HCC)- Primary Other [...] Edema, unspecified type [facility] Diagnosis Hypothalamic hypogonadism (HCC)- Primary Other [...] Primary Other [facility] Hypothalamic hypogonadism (HCC)- Primary Other [...] left lower quadrant [facility] Jose is a 40 y/o female with history of PWS. * She was last seen in clinic in June of 2020. * At that time residential was observing food stealing behaviors. * Since last visit she moved in August of last year, though senior data warehouse architect is the same. * She does have a roommate. * She is present with senior data warehouse architect Anali today. * She goes to mom's [...] * L - likes crab and shrimp, armenian chicken; salad; bread * S - after [...] 0.8 gm pro/kg DBW ( * 38gm) [id number] 1500 Work Phone: History of Present illness [...] other weekend. When visiting her mom, the residential packs her food and medicine for her to bring. Patient reports that her mom has a camera at home so she can monitor how much food Cristina gets when she is at her moms house. Cristina's senior data warehouse architect also reported that the fride, freezer and pantry at the residential is locked and Cristina has no way of getting any outside food. She does currently take a MVI with Iron as well as Vit D and fish oil. Her most recent labs are from 2020[facility] [address] [facility] Work Phone: History of Present [...] sauerkraut if she is still hungry * -senior data warehouse architect also reports that they do have things [...] other weekend. When visiting her mom, the residential packs her food and medicine for her to bring. Patient reports that her mom has a camera at home so she can monitor how much food Cristina gets when she is at her moms house. Cristina's senior data warehouse architect also reported that the fride, freezer and pantry at the residential is locked and Cristina has no way of getting any outside food. She does currently take a MVI with Iron as well as Vit D and fish oil. Her most recent labs are from 2020. [employer] Work Phone[facility] Outpatient Procedure (Urgent) - Closed Specialty Diagnoses / Procedures Referred By Hannah grimm Referred To Contact [facility] Diagnoses Pain of left lower extremity Edema, unspecified type Procedures US LEG VEIN DVT UNL VAS LAB DUP-SCAN XTR VEINS UNILATERAL/LIMITED STUDY Elsie Kaplan APRN.CNP [address] [place] [address] [facility] [address] [place] [address] Referral ID Status Reason Start Date Expiration Date V isits Requested Visits Authorized [id number] Closed Auto-Generate d Referral 11/13/2023 11/12/2024 1 1 [facility] for referral (narrative)* Diagnostic Procedure Only (Routine) - Closed Specialty Diagnoses / Procedures Referred By Hannah grimm Referred To Contact [facility] Diagnoses Left groin pain Procedures US HIP LT US COMPL JOINT R-T W/IMAGE DOCUMENTATION Sherif Thakur MD [address] [id number] [address] [place] [id number] Referral ID Status Reason Start Date Expiration Date V isits Requested Visits Authorized [id number] Closed Auto-Generate d Referral 04/23/2021 05/23/2022 1 1 [facility] for visit Narrative* Diagnostic Procedure Only (Routine) - Closed Specialty Diagnoses / Procedures Referred By Hannah grimm Referred To Contact US IMAGING Diagnoses Left groin pain Procedures US HIP LT US COMPL JOINT R-T W/IMAGE DOCUMENTATION Sherif Thakur MD [address] [place] [address] [place] [address] Referral ID Status Reason Start Date Expiration Date V isits Requested Visits Authorized [id number] Closed Auto-Generate d Referral 04/23/2021 05/23/2022 1 1 [facility] Summary Purpose Family History No Family History [...] willi syndrome* Follow up * Accompanied by director day care center. Reason for Referral Specialty Diagnoses / Procedures Referred By Hannah grimm Referred To Contact [facility] Diagnoses Physical therapy evaluation, initial Procedures CONSULT TO PHYSICAL THERAPY PHYSICAL THERAPY EVALUATION HIGH COMPLEX 45 MINS Sherif Thakur MD [address] [place] [address] [facility] [address] [address] Referral ID Status Reason Start Date Expiration Date Visits Requested Visits Authorized [id number] Authorized PCP Requested Referral Auto-Generate d Referral 06/28/2021 06/28/2022 99 99 Specialty Diagnoses / Procedures Referred By Contac t Referred To Contact [facility] Diagnoses Prader-Willi syndrome SOB (shortness of breath) Procedures ECHO ECHO TTHRC R-T 2D W/WOM-MODE COMPL SPEC&COLR D Sherif Thakur MD [address] [place] [address] [facility] [place] [address] [place] [address] Referral ID Status Reason Start Date Expiration Date Visits Requested Visits Authorized [id number] Authorized Auto-Generat ed Referral 06/28/2021 06/28/2022 1 1 Specialty Diagnoses / Procedures Referred By Contac t Referred To Contact [facility] Diagnoses Lymphedema Procedures CONSULT TO LYMPHEDEMA THERAPY OFFICE/OUTPATIENT [facility] MDM 60 MINUTES Sherif Thakur MD [address] [place] [address] [facility] [address] [address] Referral ID Status Reason Start Date Expiration Date Visits Requested Visits Authorized [id number] Authorized Auto-Generat ed Referral 11/18/2023 11/17/2024 99 99 Additional Source Comments INFORMATION SOURCE (unrecogn ized section and content) DATE CREATED AUTHOR 09/02/2017 [facility] DATE CREATED AUTHOR AUTHOR'S ORGANIZ ATION 02/16/2021 [facility] DATE CREATED AUTHOR AUTHOR'S ORGANIZ ATION 12/12/2022 [facility] DATE CREATED AUTHOR AUTHOR'S ORGANIZ ATION 12/12/2022 [facility] DATE CREATED AUTHOR AUTHOR'S ORGANIZ ATION 12/08/2023 [facility] DATE CREATED AUTHOR AUTHOR'S ORGANIZ ATION 12/24/[address] [facility] DATE CREATED AUTHOR AUTHOR'S ORGANIZ ATION 12/26/2023 [facility] Reason for Visit (unrecogniz ed section and content) Reason Comments Results Reason Comments Forms Reason Comments [facility] verbal order ne eded Reason Comments [...] Request 11/24/2023 Reason Comments recert patient for longterm servi ce Reason Comments weight gain Reason Comments Medication Question Source Comments (unrecognize d section and content) In the event this informatio n is protected by the Federal Confidentiality of Alcohol and Drug Abuse Patient Records regulations: The Federal rules restrict any use of the information to criminally investigate or prosecute any alcohol or drug abuse patient.[facility] the event this information is protected by the Federal Confidentiality of Alcohol and Drug Abuse Patient Records regulations: The Federal rules restrict any use of the information to criminally investigate or prosecute any alcohol or drug abuse patient.[facility] HospitalIn the event this information is protected by the Federal Confidentiality of Alcohol and Drug Abuse Patient Records regulations: The Federal rules restrict any use of the information to criminally investigate or prosecute any alcohol or drug abuse patient.[facility] HospitalIn the event this information is protected by the Federal Confidentiality of Alcohol and Drug Abuse Patient Records regulations: The Federal rules restrict any use of the information to criminally investigate or prosecute any alcohol or drug abuse patient.[facility] HospitalIn the event this information is protected by the Federal Confidentiality of Alcohol and Drug Abuse Patient Records regulations: The Federal rules restrict any use of the information to criminally investigate or prosecute any alcohol or drug abuse patient.[facility] HospitalIn the event this information is protected by the Federal Confidentiality of Alcohol and Drug Abuse Patient Records regulations: The Federal rules restrict any use of the information to criminally investigate or prosecute any alcohol or drug abuse patient.[facility] HospitalIn the event this information is protected by the Federal Confidentiality of Alcohol and Drug Abuse Patient Records regulations: The Federal rules restrict any use of the information to criminally investigate or prosecute any alcohol or drug abuse patient.[facility] HospitalIn the event this information is protected by the Federal Confidentiality of Alcohol and Drug Abuse Patient Records regulations: The Federal rules restrict any use of the information to criminally investigate or prosecute any alcohol or drug abuse patient.[facility] HospitalIn the event this information is protected by the Federal Confidentiality of Alcohol and Drug Abuse Patient Records regulations: The Federal rules restrict any use of the information to criminally investigate or prosecute any alcohol or drug abuse patient.[facility] HospitalIn the event this information is protected by the Federal Confidentiality of Alcohol and Drug Abuse Patient Records regulations: The Federal rules restrict any use of the information to criminally investigate or prosecute any alcohol or drug abuse patient.[facility] HospitalIn the event this information is protected by the Federal Confidentiality of Alcohol and Drug Abuse Patient Records regulations: The Federal rules restrict any use of the information to criminally investigate or prosecute any alcohol or drug abuse patient.[facility] HospitalIn the event this information is protected by the Federal Confidentiality of Alcohol and Drug Abuse Patient Records regulations: The Federal rules restrict any use of the information to criminally investigate or prosecute any alcohol or drug abuse patient.[facility] HospitalIn the event this information is protected by the Federal Confidentiality of Alcohol and Drug Abuse Patient Records regulations: The Federal rules restrict any use of the information to criminally investigate or prosecute any alcohol or drug abuse patient.[facility] HospitalIn the event this information is protected by the Federal Confidentiality of Alcohol and Drug Abuse Patient Records regulations: The Federal rules restrict any use of the information to criminally investigate or prosecute any alcohol or drug abuse patient.[facility] HospitalIn the event this information is protected by the Federal Confidentiality of Alcohol and Drug Abuse Patient Records regulations: The Federal rules restrict any use of the information to criminally investigate or prosecute any alcohol or drug abuse patient.[facility] HospitalIn the event this information is protected by the Federal Confidentiality of Alcohol and Drug Abuse Patient Records regulations: The Federal rules restrict any use of the information to criminally investigate or prosecute any alcohol or drug abuse patient.[facility] HospitalIn the event this information is protected by the Federal Confidentiality of Alcohol and Drug Abuse Patient Records regulations: The Federal rules restrict any use of the information to criminally investigate or prosecute any alcohol or drug abuse patient.[facility] HospitalIn the event this information is protected by the Federal Confidentiality of Alcohol and Drug Abuse Patient Records regulations: The Federal rules restrict any use of the information to criminally investigate or prosecute any alcohol or drug abuse patient.[facility] HospitalIn the event this information is protected by the Federal Confidentiality of Alcohol and Drug Abuse Patient Records regulations: The Federal rules restrict any use of the information to criminally investigate or prosecute any alcohol or drug abuse patient.[facility] HospitalIn the event this information is protected by the Federal Confidentiality of Alcohol and Drug Abuse Patient Records regulations: The Federal rules restrict any use of the information to criminally investigate or prosecute any alcohol or drug abuse patient.[facility] HospitalIn the event this information is protected by the Federal Confidentiality of Alcohol and Drug Abuse Patient Records regulations: The Federal rules restrict any use of the information to criminally investigate or prosecute any alcohol or drug abuse patient.[facility] HospitalIn the event this information is protected by the Federal Confidentiality of Alcohol and Drug Abuse Patient Records regulations: The Federal rules restrict any use of the information to criminally investigate or prosecute any alcohol or drug abuse patient.[facility] HospitalIn the event this information is protected by the Federal Confidentiality of Alcohol and Drug Abuse Patient Records regulations: The Federal rules restrict any use of the information to criminally investigate or prosecute any alcohol or drug abuse patient.[facility] HospitalIn the event this information is protected by the Federal Confidentiality of Alcohol and Drug Abuse Patient Records regulations: The Federal rules restrict any use of the information to criminally investigate or prosecute any alcohol or drug abuse patient.[facility] HospitalIn the event this information is protected by the Federal Confidentiality of Alcohol and Drug Abuse Patient Records regulations: The Federal rules restrict any use of the information to criminally investigate or prosecute any alcohol or drug abuse patient.[facility] HospitalIn the event this information is protected by the Federal Confidentiality of Alcohol and Drug Abuse Patient Records regulations: The Federal rules restrict any use of the information to criminally investigate or prosecute any alcohol or drug abuse patient.[facility] HospitalIn the event this information is protected by the Federal Confidentiality of Alcohol and Drug Abuse Patient Records regulations: The Federal rules restrict any use of the information to criminally investigate or prosecute any alcohol or drug abuse patient.[facility] HospitalIn the event this information is protected by the Federal Confidentiality of Alcohol and Drug Abuse Patient Records regulations: The Federal rules restrict any use of the information to criminally investigate or prosecute any alcohol or drug abuse patient.[facility] HospitalIn the event this information is protected by the Federal Confidentiality of Alcohol and Drug Abuse Patient Records regulations: The Federal rules restrict any use of the information to criminally investigate or prosecute any alcohol or drug abuse patient.[facility] HospitalIn the event this information is protected by the Federal Confidentiality of Alcohol and Drug Abuse Patient Records regulations: The Federal rules restrict any use of the information to criminally investigate or prosecute any alcohol or drug abuse patient.[facility] HospitalIn the event this information is protected by the Federal Confidentiality of Alcohol and Drug Abuse Patient Records regulations: The Federal rules restrict any use of the information to criminally investigate or prosecute any alcohol or drug abuse patient.[facility] HospitalIn the event this information is protected by the Federal Confidentiality of Alcohol and Drug Abuse Patient Records regulations: The Federal rules restrict any use of the information to criminally investigate or prosecute any alcohol or drug abuse patient.[facility] HospitalIn the event this information is protected by the Federal Confidentiality of Alcohol and Drug Abuse Patient Records regulations: The Federal rules restrict any use of the information to criminally investigate or prosecute any alcohol or drug abuse patient.[facility] HospitalIn the event this information is protected by the Federal Confidentiality of Alcohol and Drug Abuse Patient Records regulations: The Federal rules restrict any use of the information to criminally investigate or prosecute any alcohol or drug abuse patient.[facility] HospitalIn the event this information is protected by the Federal Confidentiality of Alcohol and Drug Abuse Patient Records regulations: The Federal rules restrict any use of the information to criminally investigate or prosecute any alcohol or drug abuse patient.[facility] HospitalIn the event this information is protected by the Federal Confidentiality of Alcohol and Drug Abuse Patient Records regulations: The Federal rules restrict any use of the information to criminally investigate or prosecute any alcohol or drug abuse patient.[facility] HospitalIn the event this information is protected by the Federal Confidentiality of Alcohol and Drug Abuse Patient Records regulations: The Federal rules restrict any use of the information to criminally investigate or prosecute any alcohol or drug abuse patient.[facility] HospitalIn the event this information is protected by the Federal Confidentiality of Alcohol and Drug Abuse Patient Records regulations: The Federal rules restrict any use of the information to criminally investigate or prosecute any alcohol or drug abuse patient.[facility] HospitalIn the event this information is protected by the Federal Confidentiality of Alcohol and Drug Abuse Patient Records regulations: The Federal rules restrict any use of the information to criminally investigate or prosecute any alcohol or drug abuse patient.[facility] HospitalIn the event this information is protected by the Federal Confidentiality of Alcohol and Drug Abuse Patient Records regulations: The Federal rules restrict any use of the information to criminally investigate or prosecute any alcohol or drug abuse patient.[facility] HospitalIn the event this information is protected by the Federal Confidentiality of Alcohol and Drug Abuse Patient Records regulations: The Federal rules restrict any use of the information to criminally investigate or prosecute any alcohol or drug abuse patient.[facility] HospitalIn the event this information is protected by the Federal Confidentiality of Alcohol and Drug Abuse Patient Records regulations: The Federal rules restrict any use of the information to criminally investigate or prosecute any alcohol or drug abuse patient.[facility] HospitalIn the event this information is protected by the Federal Confidentiality of Alcohol and Drug Abuse Patient Records regulations: The Federal rules restrict any use of the information to criminally investigate or prosecute any alcohol or drug abuse patient.[facility] HospitalIn the event this information is protected by the Federal Confidentiality of Alcohol and Drug Abuse Patient Records regulations: The Federal rules restrict any use of the information to criminally investigate or prosecute any alcohol or drug abuse patient.[facility] HospitalIn the event this information is protected by the Federal Confidentiality of Alcohol and Drug Abuse Patient Records regulations: The Federal rules restrict any use of the information to criminally investigate or prosecute any alcohol or drug abuse patient.[facility] HospitalIn the event this information is protected by the Federal Confidentiality of Alcohol and Drug Abuse Patient Records regulations: The Federal rules restrict any use of the information to criminally investigate or prosecute any alcohol or drug abuse patient.[facility] HospitalIn the event this information is protected by the Federal Confidentiality of Alcohol and Drug Abuse Patient Records regulations: The Federal rules restrict any use of the information to criminally investigate or prosecute any alcohol or drug abuse patient.[facility] HospitalIn the event this information is protected by the Federal Confidentiality of Alcohol and Drug Abuse Patient Records regulations: The Federal rules restrict any use of the information to criminally investigate or prosecute any alcohol or drug abuse patient.[facility] HospitalIn the event this information is protected by the Federal Confidentiality of Alcohol and Drug Abuse Patient Records regulations: The Federal rules restrict any use of the information to criminally investigate or prosecute any alcohol or drug abuse patient.[facility] HospitalIn the event this information is protected by the Federal Confidentiality of Alcohol and Drug Abuse Patient Records regulations: The Federal rules restrict any use of the information to criminally investigate or prosecute any alcohol or drug abuse patient.[facility] HospitalIn the event this information is protected by the Federal Confidentiality of Alcohol and Drug Abuse Patient Records regulations: The Federal rules restrict any use of the information to criminally investigate or prosecute any alcohol or drug abuse patient.[facility] HospitalIn the event this information is protected by the Federal Confidentiality of Alcohol and Drug Abuse Patient Records regulations: The Federal rules restrict any use of the information to criminally investigate or prosecute any alcohol or drug abuse patient.[facility] HospitalIn the event this information is protected by the Federal Confidentiality of Alcohol and Drug Abuse Patient Records regulations: The Federal rules restrict any use of the information to criminally investigate or prosecute any alcohol or drug abuse patient.[facility] HospitalIn the event this information is protected by the Federal Confidentiality of Alcohol and Drug Abuse Patient Records regulations: The Federal rules restrict any use of the information to criminally investigate or prosecute any alcohol or drug abuse patient.[facility] HospitalIn the event this information is protected by the Federal Confidentiality of Alcohol and Drug Abuse Patient Records regulations: The Federal rules restrict any use of the information to criminally investigate or prosecute any alcohol or drug abuse patient.[facility] HospitalIn the event this information is protected by the Federal Confidentiality of Alcohol and Drug Abuse Patient Records regulations: The Federal rules restrict any use of the information to criminally investigate or prosecute any alcohol or drug abuse patient.[facility] HospitalIn the event this information is protected by the Federal Confidentiality of Alcohol and Drug Abuse Patient Records regulations: The Federal rules restrict any use of the information to criminally investigate or prosecute any alcohol or drug abuse patient.[facility] HospitalIn the event this information is protected by the Federal Confidentiality of Alcohol and Drug Abuse Patient Records regulations: The Federal rules restrict any use of the information to criminally investigate or prosecute any alcohol or drug abuse patient.[facility] HospitalIn the event this information is protected by the Federal Confidentiality of Alcohol and Drug Abuse Patient Records regulations: The Federal rules restrict any use of the information to criminally investigate or prosecute any alcohol or drug abuse patient.[facility] HospitalIn the event this information is protected by the Federal Confidentiality of Alcohol and Drug Abuse Patient Records regulations: The Federal rules restrict any use of the information to criminally investigate or prosecute any alcohol or drug abuse patient.[facility] Care Teams (unrecognized sec tion and content) Radiological Health Specialist Relationship Specialty Start Date End Date Sherif Thakur MD [address] [place] [address] PCP - General Internal Medicine 12/13/15 Radiological Health Specialist Relationship Specialty Start Date End Date Sherif Thakur MD [address] [place] [address] PCP - General Internal Medicine 12/13/15 Radiological Health Specialist Relationship Specialty Start Date End Date Sherif Thakur MD [address] [place] [address] PCP - General Internal Medicine 12/13/15 Radiological Health Specialist Relationship Specialty Start Date End Date Sherif Thakur MD [address] [place] [address] PCP - General Internal Medicine 12/13/15 Radiological Health Specialist Relationship Specialty Start Date End Date Sherif Thakur MD [address] [place] [address] PCP - General Internal Medicine 12/13/15 Radiological Health Specialist Relationship Specialty Start Date End Date Sherif Thakur MD [address] [place] [address] PCP - General Internal Medicine 12/13/15 Radiological Health Specialist Relationship Specialty Start Date End Date Sherif Thakur MD [address] [place] [address] PCP - General Internal Medicine 12/13/15 Radiological Health Specialist Relationship Specialty Start Date End Date Sherif Thakur MD [address] [place] [address] PCP - General Internal Medicine 12/13/15 Radiological Health Specialist Relationship Specialty Start Date End Date Sherif Thakur MD [address] [place] [address] PCP - General Internal Medicine 12/13/15 Radiological Health Specialist Relationship Specialty Start Date End Date Sherif Thakur MD [address] [place] [address] PCP - General Internal Medicine 12/13/15 Radiological Health Specialist Relationship Specialty Start Date End Date Sherif Thakur MD [address] [place] [address] PCP - General Internal Medicine 12/13/15 Radiological Health Specialist Relationship Specialty Start Date End Date Sherif Thakur MD [address] [place] [address] PCP - General Internal Medicine 12/13/15 Radiological Health Specialist Relationship Specialty Start Date End Date Sherif Thakur MD [address] [place] [address] PCP - General Internal Medicine 12/13/15 Radiological Health Specialist Relationship Specialty Start Date End Date Sherif Thakur MD [address] [place] [address] PCP - General Internal Medicine 12/13/15 Radiological Health Specialist Relationship Specialty Start Date End Date Sherif Thakur MD [address] [place] [address] PCP - General Internal Medicine 12/13/15 Radiological Health Specialist Relationship Specialty Start Date End Date Sherif Thakur MD [address] [place] [address] PCP - General Internal Medicine 12/13/15 Radiological Health Specialist Relationship Specialty Start Date End Date Sherif Thakur MD [address] [place] [address] PCP - General Internal Medicine 12/13/15 Radiological Health Specialist Relationship Specialty Start Date End Date Sherif Thakur MD [address] [place] [address] PCP - General Internal Medicine 12/13/15 Radiological Health Specialist Relationship Specialty Start Date End Date Sherif Thakur MD [address] [place] [address] PCP - General Internal Medicine 12/13/15 Radiological Health Specialist Relationship Specialty Start Date End Date Sherif Thakur MD [address] [place] [address] PCP - General Internal Medicine 12/13/15 Radiological Health Specialist Relationship Specialty Start Date End Date Sherif Thakur MD [address] [place] [address] PCP - General Internal Medicine 12/13/15 Radiological Health Specialist Relationship Specialty Start Date End Date Sherif Thakur MD [address] [place] [address] PCP - General Internal Medicine 12/13/15 Radiological Health Specialist Relationship Specialty Start Date End Date Sherif Thakur MD [address] [place] [address] PCP - General Internal Medicine 12/13/15 Radiological Health Specialist Relationship Specialty Start Date End Date Sherif Thakur MD [address] [place] [address] PCP - General Internal Medicine 12/13/15 Radiological Health Specialist Relationship Specialty Start Date End Date Sherif Thakur MD [address] [place] [address] PCP - General Internal Medicine 12/13/15 Radiological Health Specialist Relationship Specialty Start Date End Date Sherif Thakur MD [address] [place] [address] PCP - General Internal Medicine 12/13/15 Radiological Health Specialist Relationship Specialty Start Date End Date Sherif Thakur MD [address] [place] [address] PCP - General Internal Medicine 12/13/15 Radiological Health Specialist Relationship Specialty Start Date End Date Sherif Thakur MD [address] [place] [address] PCP - General Internal Medicine 12/13/15 Radiological Health Specialist Relationship Specialty Start Date End Date Sherif Thakur MD [address] [place] [address] PCP - General Internal Medicine 12/13/15 Radiological Health Specialist Relationship Specialty Start Date End Date Sherif Thakur MD [address] [place] [address] PCP - General Internal Medicine 12/13/15 Radiological Health Specialist Relationship Specialty Start Date End Date Sherif Thakur MD [address] [place] [address] PCP - General Internal Medicine 12/13/15 Radiological Health Specialist Relationship Specialty Start Date End Date Sherif Thakur MD [address] [place] [address] PCP - General Internal Medicine 12/13/15 Radiological Health Specialist Relationship Specialty Start Date End Date Sherif Thakur MD [address] [place] [address] PCP - General Internal Medicine 12/13/15 Radiological Health Specialist Relationship Specialty Start Date End Date Sherif Thakur MD [address] [place], [place] [address] PCP - General Internal Medicine 12/13/15 Radiological Health Specialist Relationship Specialty Start Date End Date Sherif Thakur MD [address] [place] [address] PCP - General Internal Medicine 12/13/15 FOR [...] BE BASED ON THE PRIMARY CLINICAL RECORDS. [employer] [facility]. provides no warranty or guarantee of the accuracy or completeness of information in this document.
--- OUTSIDE RECORDS SUMMARY | 2023-12-26 20:41 | XMS RPT_ITS | CCD ---
Author Organization [facility] Care Team Providers Care Tier And Detonator Name Role Phone IMCA Unavailable Unavailable RICKI [...] Anti-Epileptic Agents (1 source) Phenytoin Drug Allergy [address] [place] [address] (20 sources) phenytoin; Translations: [PHENYTOIN SODIUM EXTENDED] Drug Allergy [facility] (2 sources) OTHER; Translations: [OTHER] Propensity to adverse reactions (disorder) [facility] (20 sources) apis mellifera venom; Translations: [BEE STING] allergy to substance 3 Anaphylaxis [facility] Work Phone: (20 sources) BEES,WASPS [Other] Propensity to adverse reactions 6 Swelling [facility] Work Phone: (20 sources) mosquitoes [Other] Propensity to adverse reactions 6 [facility] (1 source) Bee/Wasp/Ant venom Allergy to substance [facility] (1 source) Phenytoin; Translations: [phenytoin] Drug Allergy [facility] (1 source) misc non-codified allergy Allergy to substance [facility] Medications Current Medications Medication Drug Class(es) [...] on above: Take 2 tablets by mo [facility] every 8 hours as needed for pain (For knee pain). [id number] 200 actuat albuterol 0.09 mg/actuat metered dose [...] 10 days. 20 tablet 11/13/2023 11/23/2023 Active [id number] 0.3 ml EPINEPHrine 1 mg/ml auto-injector (20 [...] g 10 07/09/2023 Active Start: 06-01-2015 Nystop [id number] UNIT/GM External Powder APPLY TOPICALLY TWICE DAILY TO AFFECTED AREA(S) Quantity: 0 Refills: 0 Ordered: 01-Jun-2015 DO Start : 01-Jun-2015 Active Comment on above: APPLY TOPICALLY TWIC E DAILY TO AFFECTED AREA(S) ON ABDOMINAL FOLDS *EXTERNAL USE ONLY* Bpgku-8-DRW-EPA-Fi sh Oil 1,000 mg (120 mg-180 mg) cap (20 sources) Start: 08-22-2023 take 1 capsule by mouth once daily Unrgv-9-ESR-EPA-Fi sh Oil 1,000 mg (120 mg-180 mg) cap Take 1 capsule by mouth once daily. 31 capsule 08/22/2023 Active Start: 08-08-2022 End: 08-22-2023 take 1 capsule by mouth once daily Ntaue-6-MAO-EPA-Fish Oil 1,000 mg (120 mg-180 mg) cap TAKE ONE CAPSULE BY MOUTH DAILY 31 capsule 08/08/2022 08/22/2023 Discontinued Start: 08-08-2022 take 1 capsule by [facility] once daily Alatg-1-PLM-EPA-Fish Oil 1,000 mg (120 mg-180 mg) cap [...] on above: Take 1 capsule by mo [facility] at bedtime as needed for cough. [...] mouth once Vitamin D (Ergocalciferol) 1.25 MG (66297 UT) Oral Capsule Quantity: 0 Refills: 0 Ordered: 06-Dec-2016 DO Active Vitamin D (Ergoc alciferol) 1.25 MG (69245 UT) Oral Capsule Refills: 0 Active Vitamin D (Ergoc alciferol) 35493 UNIT Oral Capsule Refills: 0 Active Fish Oil-Weir-3 Fatty Acids (FISH OIL) 340-1,000 mg cap (7 sources) Start: 08-21-2020 End: 08-15-2021 take 1 capsule by mouth once daily Fish Oil-Weir-3 Fatty Acids (FISH OIL) 340-1,000 mg cap Take 1 capsule by mouth once daily. 31 capsule 11 08/21/2020 08/15/2021 Discontinued Start: 08-21-2020 take 1 capsule by mo [facility] once daily Fish Oil-Weir-3 Fatty Acids (FISH OIL) 340-1,000 mg cap [...] BY MOUTH DAILY omega-3 acid ethyl esters (fpc) 1000 mg oral capsule (1 source) Start: [...] Problem Cici grimm Migration; 2012-10-30; Moved to [facility] Feb 05 2013 9:10PM; Other connective [...] (2 sources) Prader-Willi syndrome; 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 ([facility])] Onset: 12-04-2023 Past or Other [...] by Problem Cici Baugh; 2012-10-30; Moved to [facility] Feb 05 2013 9:10PM; Other nutritional; [...] Name Value Interpretation Reference Range Facility [facility] JOSE ABDUL ([id number]) 1980 F Date Time Provider Department 12/22/23 SHERIF THAKUR INTWS During your visit today, we recorded the following information about you: Annie Brand RN 12/22/2023 1:33 PM Signed Pharmacist @ [facility] calling to clarify orders for [...] Please review and advise. RODRÍGUEZ Lopez Joy, APRN.HOURLY SHIFT 12/22/2023 1:41 PM Signed She is supposed to be taking both short term. Is there a way to get her in earlier then in 10 days? Thank you Elsie Kaplan APRN.HOURLY SHIFT María Avila MA 12/22/2023 1:49 PM Signed [...] 2 SPRAYS IN EACH NOSTRIL DAILY - Wadgq-9-BXV-EPA-Fish Oil 1,000 mg (120 mg-180 mg) cap [...] lymphedema [I89.0] (more content not included)... Normal [facility] .Auto Diffon 12-21-2023 Basophil, Absolute 0.0 10 3/mcL Normal 0.0-0.2 [facility] Comment on above: Performed By: #### C BC, ANEU, ADIFF, GFR, PBNP, BMP, TROPHS, MG, MDW #### [address] [address] Basophils/100 WBC (Bld) 0.3 % Normal 0.0-2.5 [facility] Comment on above: Performed By: #### C BC, ANEU, ADIFF, GFR, PBNP, BMP, TROPHS, MG, MDW #### [address] [address] Eosinophil, Absolute 0.2 10 3/mcL Normal 0.0-0.7 [facility] Comment on above: Performed By: #### C BC, ANEU, ADIFF, GFR, PBNP, BMP, TROPHS, MG, MDW #### [address] [address] Eosinophils/100 WBC (Bld) 1.9 % Normal 0.0-7.0 [facility] Comment on above: Performed By: #### C BC, ANEU, ADIFF, GFR, PBNP, BMP, TROPHS, MG, MDW #### [address] [address] Lymphocyte, Absolute 2.0 10 3/mcL Normal 0.9-4.3 [facility] Comment on above: Performed By: #### C BC, ANEU, ADIFF, GFR, PBNP, BMP, TROPHS, MG, MDW #### [address] [address] Lymphocytes/100 WBC (Bld) 17.4 % Low 20.0-40.0 [facility] Comment on above: Performed By: #### C BC, ANEU, ADIFF, GFR, PBNP, BMP, TROPHS, MG, MDW #### [address] [address] Monocyte, Absolute 1.2 10 3/mcL Normal 0.1-1.4 [facility] Comment on above: Performed By: #### C BC, ANEU, ADIFF, GFR, PBNP, BMP, TROPHS, MG, MDW #### [address] [address] Monocytes/100 WBC (Bld) 10.5 % Normal 2.0-13.0 [facility] Comment on above: Performed By: #### C BC, ANEU, ADIFF, GFR, PBNP, BMP, TROPHS, MG, W #### [address] [address] Neutrophils/100 WBC (Bld) 69.9 % Normal 50.0-75.0 [facility] Comment on above: Performed By: #### C BC, ANEU, ADIFF, GFR, PBNP, BMP, TROPHS, MG, KYLIE #### [address] [address] .GFRon 12-21-2023 GFR 169 ml/min/1.73sqm Normal [facility] Comment on above: Result Comment: GFR [...] GFR, PBNP, BMP, TROPHS, MG, MDW #### [address] [address] GFR Non- 139 ml/min/1.73sqm Normal [facility] Comment on above: Result Comment: GFR [...] GFR, PBNP, BMP, TROPHS, MG, MDW #### [address] [address] .MDWon 12-21-2023 Monocyte Distribution Width 20.26 High 0.00-20.00 [facility] Comment on above: Result Comment: For adults in ED, MDW>20.0 may be associated with a higher risk of sepsis during the first 12hrs of hospital admission Performed By: #### C BC, ANEU, ADIFF, GFR, PBNP, BMP, TROPHS, MG, MDW #### [address] [address] .NEUABSon 12-21-2023 Neutrophil, Absolute 8.1 10 3/mcL Normal 2.3-8.1 [facility] Comment on above: Performed By: #### C BC, ANEU, ADIFF, GFR, PBNP, BMP, TROPHS, MG, MDW #### [address] [address] BMPon 12-21-2023 BUN/Creatinine Ratio 31 ratio High 7-27 [facility] Comment on above: Performed By: #### C BC, ANEU, ADIFF, GFR, PBNP, BMP, TROPHS, MG, MDW #### [address] [address] Calcium [Mass/Vol] 9.1 mg/dL Normal 8.4-10.2 [facility] Comment on above: Performed By: #### C BC, ANEU, ADIFF, GFR, PBNP, BMP, TROPHS, MG, KYLIE #### [address] [address] Chloride [Moles/Vol] 104 mmol/L Normal 98-107 [facility] Comment on above: Performed By: #### C BC, ANEU, ADIFF, GFR, PBNP, BMP, TROPHS, MG, KYLIE #### [address] [address] CO2 [Moles/Vol] 34 mmol/L High 22-29 [facility] Comment on above: Performed By: #### C BC, ANEU, ADIFF, GFR, PBNP, BMP, TROPHS, MG, KYLIE #### [address] [address] Creatinine [Mass/Vol] 0.49 mg/dL Low 0.55-1.02 [facility] Comment on above: Result Comment: Test ing performed on Siemens Dimension EXL analyzer using a modified kinetic Melanie technique. Performed By: #### C BC, ANEU, ADIFF, GFR, PBNP, BMP, TROPHS, MG, KYLIE #### [address] [address] Electrolyte Balance 1.0 mEq/L Low 4.0-15.0 [facility] Comment on above: Performed By: #### C BC, ANEU, ADIFF, GFR, PBNP, BMP, TROPHS, MG, KYLIE #### [address] [address] Glucose [Mass/Vol] 96 mg/dL Normal 70-105 [facility] Comment on above: Performed By: #### C BC, ANEU, ADIFF, GFR, PBNP, BMP, TROPHS, MG, KYLIE #### [address] [address] Potassium [Moles/Vol] 4.7 mmol/L Normal 3.5-5.1 [facility] Comment on above: Performed By: #### C BC, ANEU, ADIFF, GFR, PBNP, BMP, TROPHS, MG, MDW #### [place] [address] Sodium [Moles/Vol] 139 mmol/L Normal 136-145 [facility] Comment on above: Performed By: #### C BC, ANEU, ADIFF, GFR, PBNP, BMP, TROPHS, MG, MDW #### [place] [address] Urea nitrogen [Mass/Vol] 15 mg/dL Normal 7-18 [facility] Comment on above: Performed By: #### C BC, ANEU, ADIFF, GFR, PBNP, BMP, TROPHS, MG, MDW #### [place] [address] CBCon 12-21-2023 Erythrocyte distribution width (RBC) [Ratio] 14.4 % Normal 11.5-15.5 [facility] Comment on above: Performed By: #### C BC, ANEU, ADIFF, GFR, PBNP, BMP, TROPHS, MG, MDW #### [place] [address] Hematocrit (Bld) [Volume fraction] 39.3 % Normal 34.0-46.0 [facility] Comment on above: Performed By: #### C BC, ANEU, ADIFF, GFR, PBNP, BMP, TROPHS, MG, MDW #### [place] [address] Hgb 12.6 G/dL Normal 12.0-16.0 [facility] Comment on above: Performed By: #### C BC, ANEU, ADIFF, GFR, PBNP, BMP, TROPHS, MG, MDW #### [place] [address] MCH (RBC) [Entitic mass] 32.2 pg Normal 27.0-33.0 [facility] Comment on above: Performed By: #### C BC, ANEU, ADIFF, GFR, PBNP, BMP, TROPHS, MG, MDW #### [address] [address] MCHC 32.1 G/dL Normal 32.0-36.0 [facility] Comment on above: Performed By: #### C BC, ANEU, ADIFF, GFR, PBNP, BMP, TROPHS, MG, MDW #### [address] [address] MCV (RBC) [Entitic vol] 100.2 fL High 80.0-99.0 [facility] Comment on above: Performed By: #### C BC, ANEU, ADIFF, GFR, PBNP, BMP, TROPHS, MG, MDW #### [address] [address] Platelet 147 10 3/mcL Low 150-450 [facility] Comment on above: Performed By: #### C BC, ANEU, ADIFF, GFR, PBNP, BMP, TROPHS, MG, MDW #### [address] [address] Platelet mean volume (Bld) [Entitic vol] 8.8 fL Normal 6.6-10.5 [facility] Comment on above: Performed By: #### C BC, ANEU, ADIFF, GFR, PBNP, BMP, TROPHS, MG, MDW #### [address] [address] RBC 3.92 10 6/mcL Low 4.10-5.30 [facility] Comment on above: Performed By: #### C BC, ANEU, ADIFF, GFR, PBNP, BMP, TROPHS, MG, MDW #### [address] [address] WBC 11.6 10 3/mcL High 4.5-10.8 [facility] Comment on above: Performed By: #### C BC, ANEU, ADIFF, GFR, PBNP, BMP, TROPHS, MG, MDW #### [address] [address] LABORATORYOrdered By: SYSTEM SYSTEM on 12-21-2023 Troponin I.cardiac DL <= 0.01 ng/mL [Mass/Vol] 22 ng/L Normal 0 - 51 ng/L AO ADM SS Comment on above: Interpretive Data: H igh Sensitive Troponin I Reference Ranges: Female: 0-51 ng/L Male: 0-76 ng/L Testing performed on BuildDirectL using a homogeneous sandwich chemiluminescent immunoassay based on Compete technology. Basophils (Bld) [#/Vol] 0.0 103/mcL Normal [...] ng/L Male: 0-76 ng/L Testing performed on Solaicx using a homogeneous sandwich chemiluminescent immunoassay based on Compete technology. Urea nitrogen [Mass/Vol] 15 mg/dL Normal 7 - 18 mg/dL AO ADM SS Urea nitrogen/Creatinine [Mass ratio] 31 ratio High 7 - 27 ratio AO ADM SS WBC (Bld) [#/Vol] 11.6 103/mcL High 4.5 - 10.8 10^3/mcL AO Workflow SS MGon 12-21-2023 Magnesium [Mass/Vol] 1.9 mg/dL Normal 1.8-2.4 [facility] Comment on above: Performed By: #### C BC, ANEU, ADIFF, GFR, PBNP, BMP, TROPHS, KYLIE SHEN #### [address] [address] PBNPon 12-21-2023 Natriuretic peptide B (Bld) [Mass/Vol] 449 pg/mL High 0-125 [facility] Comment on above: Result Comment: NT-p roBNP results of less than 300 pg/mL effectively rules out acute congestive heart failure with 99% negative predictive value. Performed By: #### C BC, ANEU, ADIFF, GFR, PBNP, BMP, TROPHS, KYLIE SHEN #### [address] [address] [facility] 12-21-2023 High Sensitivity Troponin I 22 ng/L Normal 0-51 [facility] Comment on above: Result Comment: High Sensitive Troponin I Reference Ranges: Female: 0-51 ng/L Male: 0-76 ng/L Testing performed on Solaicx using a homogeneous sandwich chemiluminescent immunoassay based on Compete technology. Performed By: #### C BC, ANEU, ADIFF, GFR, PBNP, BMP, TROPHS, KYLIE SHEN #### [address] [address] High Sensitivity Troponin I 20 ng/L Normal 0-51 [facility] Comment on above: Result Comment: High Sensitive Troponin I Reference Ranges: Female: 0-51 ng/L Male: 0-76 ng/L Testing performed on Dimension EXL using a homogeneous sandwich chemiluminescent immunoassay based on Compete technology. Performed By: #### C BC, ANEU, ADIFF, GFR, PBNP, BMP, TROPHS, MGKYLIE #### [address] [address] XR CHEST 1 VIEWon 12-21-2023 XR CHEST [...] 12/21/2023 3:28:25 PM Ordering Provider: TABATHA PAGE [facility] 12-18-[address] [facility] Telephone (Koemei) JOSE ABDUL ([id number]) 1980 F Date Time Provider Department 12/18/23 SHERIF THAKUR [facility] During your visit today, we recorded the following information about you: Erendira Stewart LPN 12/18/2023 2:27 PM Signed Shobha from [facility] states there were medications sent for pt yesterday Rah Turner RN 12/22/2023 9:49 AM Signed [facility]- phoned to report patient was seen in [place] ER on Friday12-21-23, with SOB. ER gave patient IV lasix and sent patient home. Reports patient is having stress in snf with another housemate, which is causing patient anxiety, and this was part of the problem, but patient has also been having problems with edema. This nurse phoned Shobha- caregiver @ [facility] to schedule ER f/u appt, and noted in 12-17-23 encounter, [employer] had ordered potassium 20 mg daily, and lasix 40 mg daily, until patient is seen. Asked Shobha how patient is doing on this dose. Shobha reports patient never received the medication, b/c it was sent to the wrong pharmacy, should have been sent to [place]. Shobha did call pcp to report this (see message below), but never received the medication. Reports even if the medication is sent to [place] today- they still will not receive it until Fri. Pended medications for [facility]. Please send geovanny. Shobha reports patient is doing fine today- and they are working on the problem with the housemate. Scheduled patient hosp f/u appt for 01-01-24. Elsie Kaplan APRN.OBED 12/22/2023 10:58 AM Signed Prescription Resent. Thank you Elsie Kaplan APRN.Teresa Foster RN 12/22/2023 11:35 AM Signed Called and left a voicemail for the [facility] to call back and ask for [...] 2 SPRAYS IN EACH NOSTRIL DAILY - Obdpn-7-PZL-EPA-Fish Oil 1,000 mg (120 mg-180 mg) cap [...] Each once (more content not included)... [facility] Tele[facility] (INTMWS) CHANTELLJOSE Hanna ([id number]) 1980 F Date Time Provider Department 12/17/23 SHERIF THAKUR INTMWS During your visit today, we recorded the following information about you: Rah Turner RN 12/17/2023 9:13 AM Addendum Clarence- [facility]- phoned with patient update: Reports pcp increased [...] Please advise and phone Clarence with reply: [phone] Elsie Kaplan APRN.OBED 12/17/2023 1:23 PM Signed Patient needs to be seen to evaluate why this is continuing to occur. Can increase lasix to 40mg and the potassium to 20mg both daily until seen. Thank you Elsie Kaplan APRN.Lillie Adame RN 12/17/2023 2:27 PM Signed Clarence called and notified of below , Clarence voices understanding. Clarence is going to pass this along to snf. Clarence asking if new scripts can be sent to [facility]? Please review and advise, RODRÍGUEZ [...] 2 SPRAYS IN EACH NOSTRIL DAILY - Waoqw-5-PGA-EPA-Fish Oil 1,000 mg (120 mg-180 mg) cap [...] syndrome [Q87.11] (more content not included)... Normal [facility] Tal 12-12-2023 LOU Telephone (INTMWS) JOSE ABDUL ([id number]) 1980 F Date Time Provider Department 12/12/23 SHERIF THAKUR During your visit today, we recorded the following information about you: Candelaria Ball LPN 12/12/2023 8:10 AM Signed Clarenec from [facility] calling patient weight this morning was 286 [...] 2 SPRAYS IN EACH NOSTRIL DAILY - Dsolx-0-PYD-EPA-Fish Oil 1,000 mg (120 mg-180 mg) cap [...] knee, le (more content not included)... Normal [facility] 12-05-[address] [facility] Telephone (INTMWS) JOSE ABDUL ([id number]) 1980 F Date Time Provider Department 12/05/23 SHERIF THAKUR INTWS During your visit today, we recorded the following information about you: Candelaria Ball LPN 12/05/2023 9:23 AM Signed Clarence from [facility] calling time for recert senior care services. Patient snf was purchased by another company, nurses will [...] Assessed Reason for Visit: recert patient for senior care service [Other] Prescriptions as of 12/08/2023 - [...] 2 SPRAYS IN EACH NOSTRIL DAILY - Thfqw-0-ULC-EPA-Fish Oil 1,000 mg (120 mg-180 mg) cap [...] 12/14/2014 BM (more content not included)... Normal [facility] CNOVon 11-18-2023 CNOV Office Visit (INTMWS ) JOSE ABDUL ([id number]) 1980 F Date Time Provider Department 11/18/23 [...] T) fluticasone (FLONASE) 50 mcg/actuation nasal spray Bikya-8-FRD-EPA-Fish Oil 1,000 mg (120 mg-180 mg) cap [...] RRR without (more content not included)... Normal [facility] CNOVon 11-13-2023 CNOV Office Visit (INTMWS ) JOSE ABDUL ([id number]) 1980 F Date Time Provider Department 11/13/23 11:00 AM ELSIE KAPLAN During your visit today, we recorded the following information about you: Temperature Pulse Respiration Blood pressure 98.2 degrees 60/minute 16/minute 136/84 Weight 117.5 kg Elsie Kaplan APRN.HOURLY SHIFT 11/13/2023 12:41 PM Signed CC: Patient presents with: Recheck: ER follow up, cellulitis completed AIB HPI Jose Abdul is a 43 year old female who presents today for cellulitis Unsure if there was injury or what caused infection but noticed while playing basketball that leg was red, hot, more swollen then usual and painful. Went immediately to [place] ER on 10/29. No US completed to [...] INSTILL 2 SPRAYS IN EACH NOSTRIL DAILY Hfzpg-4-OHQ-EPA-Fish Oil 1,000 mg (120 mg-180 mg) cap [...] Never Subs (more content not included)... Normal [facility] CNPNon 11-13-2023 LOU Telephone (PAOLOWS) JOSE ABDUL ([id number]) 1980 F Date Time Provider Department 11/13/23 ELSIE KAPLAN During your visit today, we recorded the following information about you: María Avila MA 11/13/2023 2:42 PM Signed ----- Message from Elsie Kaplan APRN.HOURLY SHIFT sent at 11/13/2023 2:13 PM EDT ----- Please let Chastity snf know preliminary result of US is negative [...] 2 SPRAYS IN EACH NOSTRIL DAILY - Wxbcj-4-TBQ-EPA-Fish Oil 1,000 mg (120 mg-180 mg) cap [...] extremity [ (more content not included)... Normal [facility] LEG VEIN DVT UNL VAS LABo n 11-13-2023 LEG VEIN DVT UNL VAS LAB Non-Invasive Vascular Laboratory [facility] Lower Extremity Venous Duplex Unilateral - Left [...] small saphenous vein. Technologist: Hina Giraldo RVT, RUST Ordering physician: ELSIE KAPLAN Interpreting physician: DANITZA Eden DO Final CC [employer] Image : [id number] amicsSISUID See Link below for Image Normal [facility] Lower extremity veinon Non-Invasive Vascular Laboratory [facility] Lower Extremity Venous Duplex Unilateral - Left [...] small saphenous vein. Technologist: Hina Giraldo RVT RUST Ordering physician: ELSIE KAPLAN Interpreting physician: DANITZA Eden DO Final See Link below for [facility] CNPN Telephone (INTMWS) JOSE ABDUL ([id number]) 1980 F Date Time Provider Department 11/12/23 SHERIF THAKUR INTRahWS During your visit today, we recorded the following information about you: Candelaria Ball LPN 11/12/2023 9:30 AM Signed Clarence from [facility] calling 2 weeks ago ER put her [...] 8:50 AM Signed Clarence from [facility] calling back, went over notes from visit [...] Date Reviewed: 03/19/2023 Reviewed by: Teresa Yeung APRN.HOURLY SHIFT - Fully Assessed Reason for Visit: Patient [...] 2 SPRAYS IN EACH NOSTRIL DAILY - Zyupd-6-WBQ-EPA-Fish Oil 1,000 mg (120 mg-180 mg) cap [...] 01/28/2006 1 (more content not included)... [facility] CHANTELLJOSE Jacques ([id number]) 1980 F Date Time Provider Department 10/09/23 SHERIF THAKUR INTMWS During your visit today, we recorded the following information about you: Pepper Walsh RN 10/09/2023 2:35 PM Signed Crystal with [facility] calling to update PCP that patient has [...] Date Reviewed: 03/19/2023 Reviewed by: Teresa Yeung APRN.[facility] - Fully Assessed Reason for Visit: Patient Update [1234] Prescriptions as of 10/10/2023 - multivitamin-ferrous fumarate-folic acid (CERTAVITE-ANTIOXIDAN T) Take 1 tablet by mouth once daily. - fluticasone (FLONASE) 50 mcg/actuation nasal spray INSTILL 2 SPRAYS IN EACH NOSTRIL DAILY - Gtzrp-3-DDL-EPA-Fish Oil 1,000 mg (120 mg-180 mg) cap [...] (HCC) [Z68.41] 12/14/2014 02/09/2015 BMI 45.0-49.9, adult ([facility]) [Z68.42] 02/09/2015 03/19/2023 Hypothalamic hypogonadism (H (more content not included)... [facility] CHANTELLJOSE Jacques ([id number]) 1980 F Date Time Provider Department 10/09/23 SHERIF THAKUR INTMWS During your visit today, we recorded the following information about you: Candelaria Ball LPN 10/09/2023 1:34 PM Signed Clarence from [facility] calling to recert orders for custodial for [...] Date Reviewed: 03/19/2023 Reviewed by: Teresa Yeung APRN.[facility] - Fully Assessed Reason for Visit: recert orders [Other] Prescriptions as of 10/10/2023 - multivitamin-ferrous fumarate-folic acid (CERTAVITE-ANTIOXIDAN T) Take 1 tablet by mouth once daily. - fluticasone (FLONASE) 50 mcg/actuation nasal spray INSTILL 2 SPRAYS IN EACH NOSTRIL DAILY - Lcqsr-6-JDP-EPA-Fish Oil 1,000 mg (120 mg-180 mg) cap [...] right lowe (more content not included)... [facility] C[facility] Telephone (INTMWS) JOSE ABDUL ([id number]) 1980 F Date Time Provider Department 08/07/23 SHERIF THAKUR INTMWS During your visit today, we recorded the following information about you: Lillie Marshall RN 08/07/2023 10:44 AM Signed Clarence from [facility] calls to see if provider will continue to follow orders for senior care? RODRÍGUEZ Carnes Terri, MOISES.ENTRY LEVEL ACCOUNTING CLERK 08/07/2023 12:45 PM Signed Darlene Patricia OCCA 08/07/2023 12:57 PM Signed Clarence informed of below. ANUPAMA Lira Allergies As of Date: 08/07/2023 Noted Allergy Reaction BEE STING 02/28/2023 10 - Anaphylaxis DILANTIN (PHENYTOIN SODIUM EXTEND*01/28/2006 Date Reviewed: 03/19/2023 Reviewed by: Teresa Yeung APRN.[employer] - Fully Assessed Prescriptions as of 08/07/2023 [...] 2 SPRAYS IN EACH NOSTRIL DAILY - Bfccb-9-YNQ-EPA-Fish Oil 1,000 mg (120 mg-180 mg) cap [...] L97.909] 01/16/201606/17/ (more content not included)... Normal [facility] Tal 05-30-2023 OBEDN Telephone (QUINTEN) CHANTELLJOSE Grimm ([id number]) 1980 F Date Time Provider Department 05/30/23 ELSIE KAPLAN During your visit today, we recorded the following information about you: Ofelia Rodriguez 05/30/2023 12:16 PM Signed Patient verified by name and . Her care provider, Shaunna Cuenca calling to request a mammogram screening order be faxed to [facility] to complete. She can be reached at [phone] with any questions. Please review and advise. María Avila Ma 05/30/2023 2:48 PM Signed Faxed to [facility] as requested. Allergies As of Date: 05/30/2023 Noted Allergy Reaction BEE STING 02/28/2023 10 - Anaphylaxis DILANTIN (PHENYTOIN SODIUM EXTEND*01/28/2006 Date Reviewed: 03/19/2023 Reviewed by: Teresa Yeung APRN.[facility] - Fully Assessed Reason for Visit: [...] MOUTH EVERY OTHER DAY FOR LYMPHEDEMA - krauhbz-iovyldlff-dbg walden D3 (OYSTER SHELL CALCIUM-VITAMIN D) 500 [...] 2 SPRAYS IN EACH NOSTRIL DAILY - Rbngg-0-QYE-EPA-Fish Oil 1,000 mg (120 mg-180 mg) cap [...] [Z68.42] 02/09 (more content not included)... [facility] (INTMWS) CHANTELLISAAKJESUS Hanna ([id number]) 1980 F Date Time Provider Department 05/26/23 SHERIF THAKUR INTMWS During your visit today, we recorded the following information about you: Eulalia Laureano RN 05/26/2023 11:36 AM Signed Prior Authorization Documentation Prior authorization requested for the following medication: Medication: Symbicort Provider: Teresa Yeung Insurance Company Name: Medicare A/B and Medicaid secondary Insurance Company Phone number: Not listed Patient ID number: Medicare: [id number] Medicaid: [id number] Pharmacy Name: [facility] Telephone number: [phone]. Caregiver calls to request. Reports pharmacy is also faxing request. RODRÍGUEZ Braden Janice, LPN 05/26/2023 1:28 PM Signed Jose Abdul (Griffith: [id number]) - [phone] Budesonide-Formoterol Fumarate 160-4.5MCG/ACT aerosol Status: PA Request Created: March 13, 2023 [id number] Sent: May 26, 2023 Radha Funk LPN [...] ordered in equivalent dosing to symbicort. Call snf to give below information and change in inhaler. Patient needs to follow up in 4 weeks. Te evaluate how she is doing on new inhaler. Thank you Elsie Kaplan APRN.María Mchugh MA 05/29/2023 11:33 AM Signed Tried calling supervisor vat house, call was dropped. María Avila MA 06/02/2023 3:30 PM Signed Left message for return call. Allergies As of Date: 05/26/2023 Noted Allergy Reaction BEE STING 02/28/2023 10 - Anaphylaxis DILANTIN (PHENYTOIN SODIUM EXTEND*01/28/2006 Date Reviewed: 03/19/2023 Reviewed by: Teresa Yeung APRN.[employer] - Fully Assessed Reason for Visit: Insurance Authorization [[id number]] Order(s):mometasone-f ormoterol (DULERA) 100-5 mcg/actuation inhalerInhale 2 [...] MOUTH EVERY OTHER DAY FOR LYMPHEDEMA - rpkwzhb-igusxhszb-rsl walden D3 (OYSTER SHELL CALCIUM-VITAMIN D) 500 [...] 2 SPRAYS IN EACH NOSTRIL DAILY - Ysatg-0-GHY-EPA-Fish Oil 1,000 mg (120 mg-180 mg) cap [...] diphenhydrAMINE (BENADRYL) (more content not included)... Normal [facility] CNOVon 03-19-2023 CNOV Office Visit (INTMWS ) JOSE ABDUL ([id number]) 1980 F Date Time Provider Department 03/19/23 2:40 PM TERESA YEUNG During your visit today, we recorded the following information about you: Pulse Blood pressure Weight Height 77/minute 142/95 117 kg 1.435 m Teresa Yeung APRN.[employer] 03/19/2023 4:20 PM Signed CHIEF COMPLAINT: Patient presents with: Physical: Forms need completed HISTORY: Jose Abdul is a 42 year old female who presents 03/19/2023 for her Yearly Physical Exam. They are here today for a wellness exam. Generally feels well and does not have complaints. Is able to complete ADL's with some assist. She currently lives in a home managed by [place] and is accompanied by a child care attendant today. 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 Other Providers: Podiatry, Dr. Lyubov Fontenot with rug sample beveler with [place] Depression Screen Q1: Over the past two weeks, have you felt down, depressed or hopeless? No Q2: Over the past two weeks, have you felt little interest or pleasure in doing things? 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 (more content not included)... Normal [facility] CNOVon 02-28-2023 CNOV Office Visit (INTMWS ) JOSE ABDUL ([id number]) 1980 F Date Time Provider Department 02/28/23 1:40 PM TERESA YEUNG INTMWS During your visit today, we recorded the following information about you: Temperature Pulse Blood pressure Weight 98.3 degrees 62/minute 120/71 112 kg Teresa Yeung APRN.[employer] 02/28/2023 2:10 PM Signed SUBJECTIVE Jose Abdul is a 42 year old female here today for acute concern. Chief Complaint Patient presents with: irriatated spot near vulva HPI Jose Abdul is a 42 year old female. Here today, accompanied by a child care attendant. Concerns of an irritated spot near her [...] BY MOUTH EVERY OTHER DAY FOR LYMPHEDEMA ddkxama-jugkuspao-uvk walden D3 (OYSTER SHELL CALCIUM-VITAMIN D) 500 [...] INSTILL 2 SPRAYS IN EACH NOSTRIL DAILY Nodfv-4-HBT-EPA-Fish Oil 1,000 mg (120 mg-180 mg) cap [...] is monitored by Dr lexus Jackson, at [facility] She is noted to have a murmur we are not sure where the murmur is but based on her history. When she goes to we will see hospital she has a multi disciplinary care team that works with her. It includes (more content not included)... Normal [facility] Tal 02-26-2023 OBEDN Telephone (FAMPWS) JOSE ABDUL ([id number]) 1980 F Date Time Provider Department 02/26/23 TERESA YEUNG During your visit today, we recorded the following information about you: Reji Tipton LPN 02/26/2023 10:59 AM Signed Clarence Eaton from [facility] calling advising that they visit pt weekly [...] MOUTH EVERY OTHER DAY FOR LYMPHEDEMA - cwvpgus-nydszxgui-fxw walden D3 (OYSTER SHELL CALCIUM-VITAMIN D) 500 [...] 2 SPRAYS IN EACH NOSTRIL DAILY - Ejvpw-1-LER-EPA-Fish Oil 1,000 mg (120 mg-180 mg) cap [...] [G47.30] 01/28/2006 (more content not included)... Normal [facility] General/Metabolic - Estabs nory 12-05-2022 General/Metabolic - Established Provider Impressions Cristina is a 42-year-old female with PWS, here for a follow-up visit. A review on management of adults with PWS has been published recently (PMID: [id number]). When systematically screened for common conditions, some [...] encouraged participation in sports activities at her snf. - Management of HTN per PCP. 2. At risk for endocrinopathies: Adults with PWS are at increased risk for diabetes, hypercholesterolemia, growth hormone deficiency, hypogonadism, and rarely, adrenal insufficiency. 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 Plan: - Annual TSH, lipid profile, HbA1C through PCP - See Line Installation Supervisor for OCP 3. Bone health Adults with [...] year Chief Complaint Follow up Accompanied by patient care provider. History of Present Illness PWS CLINIC Deepali is a 42 year old female who has presented to the PWS multidisciplinary clinic at [facility]. She is accompanied by her supervisor vat house, Anali. History was obtained by the patient, [...] the past. PCP: Dr. Sherif Thakur at [facility], fax number [phone], is currently seeing an CHIEF I DISPATCHER named Older at this office Interval History: [...] and Friday, where she works out (e.g., [employer]) half a day. She just received a [...] records - they may be accessible on [employer], and will hopefully be more available on [employer]. - Seeing Gynecology for OCP (for bone health). Dx of uterine prolapse. - Asthma, using inhalers twice a day. She denies dys (more content not included)... Normal [facility] 12-05-2022 Nutrition-Adult History of Present Illness Food/Nutrition related history: [facility] Nutrition Assessment in PWS [...] AND INTAKE: Pt and caregiver (Anali - [place] [employer] Lieutenant) present in out-patient PWS clinic for a scheduled f/u clinic visit. 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 [facility] packed meals home with her. Food [...] report to dietitian - Send copies of [facility] Food Menus and pts actual % of [...] Phone: Tobacco use status [facility] b) No QO-Wnkfallh-D [facility] 1500 Work Phone: Tobacco Screening.on 022 Adult depression screening assessment No [facility] 1100 DO Work Phone: Fall risk assessment a) No falls within the last year [facility] 1100 DO Work Phone: Tobacco use status [facility] b) No [facility] 1100 DO Work Phone: US Hip - lefton 05-31-2021 IMPRESSION: Unremarkable ultrasound of the anterior left hip Managed Care Manager: NADIA Transcribe Date/Time: May 31 2021 1:54P Dictated by : PAM MUNIZ MD This examination was interpreted and the report reviewed and electronically signed by: GUS SAGE MD on May 31 2021 2:05PM [facility] * * *Final Report* * * DATE OF EXAM: May 31 2021 1:48PM [place] [id number] - HIP LT / PROCEDURE REASON: Left [...] Not well seen. DIVISION OF RADIOLOGY Provider, [facility] Marcia [facility] - 05/31/2021 * * *Final Report* * * DATE OF EXAM: May 31 2021 1:48PM [facility] 1147 - US HIP LT / [...] Unremarkable ultrasound of the anterior left hip Managed Care Manager: NADIA Transcribe Date/Time: May 31 2021 1:54P Dictated by : PAM MUNIZ MD This examination was interpreted and the report reviewed and electronically signed by: GUS SAGE MD on May 31 2021 2:05PM EST [facility] Radiology Study observation (narrative) [facility] US Hip - leftOrdered By: [facility] Provider on 05-31-2021 [facility] Tobacco Screening.on 022 Fall risk assessment a) No falls within the last year LF-Ioimqhcn-N [facility] [address] Work Phone: Tobacco use status [facility] b) No ED-Vxjhsdhe-Q [facility] [address] Work Phone: CNOVon 02-15-2021 CNOV Office Visit (AGMIL) JOSE ABDUL ([id number]) 1980 F Date Time Provider Department 02/15/21 [...] needed basis. This note was generated with [employer] dictation software. It may contain incorrect words, spelling, and punctuation and that were not noted in review of the chart prior to signing. I spent 15 minutes in the visit, with more than 50% of the total hzsi-yd-cgek time of the visit in counseling / coordination of care. Recommendations: #1 continue lymphedema pumping #2 continue lymphedema wraps #3 check with primary care physician and if no contraindications begin enteric-coated baby aspirin on a daily basis. Referring Provider: SHERIF THAKUR [[id number]] Allergies As of Date: 02/15/2021 Noted Allergy [...] left lower extremity [I89.0] BMI 50.0-59.9, adult ([facility]) [Z68.43] Prescriptions as of 02/15/2021 - furosemide (LASIX) 20 mg tablet TAKE ONE TABLET BY MOUTH EVERY OTHER DAY - clotrimazole (LOTRIMIN, CLOTRIM) 1 % cream APPLY TOPICALLY TO AFFECTED AREA(S) ON BILATERAL GROIN TWICE DAILY - ammonium lactate (LAC-HYDRIN) 12 % cream APPLY TOPICALLY TO AFFECTED AREA(S) ON LEGS AT BEDTIME - hdtuncj-ymcxuchur-azs walden D3 (OYSTER SHELL CALCIUM-VITAMIN D) 500 [...] DAILY *SHAKE GENTLY BEFORE USING* - Fish Oil-Weir-3 Fatty Acids (FISH OIL) 340-1,000 mg cap [...] (more content not included)... Normal [facility] CNOVon 01-18-2021 [facility] Office Visit (AGMIL) JOSE ABDUL ([id number]) 1980 F Date Time Provider Department 01/18/21 [...] a month. This note was generated with [employer] dictation software. It may contain incorrect words, spelling, and punctuation and that were not noted in review of the chart prior to signing. I spent 15 minutes in the visit, with more than 50% of the total epcl-py-kvbo time of the visit in counseling / coordination of care. Referring Provider: SHERIF THAKUR [[id number]] Allergies As of Date: 01/18/2021 Noted Allergy [...] Order(s):US LEG VEIN DVT [facility] [[id number]] Order #: [id number] FUTURE Prescriptions as of 01/29/2021 - clotrimazole (LOTRIMIN, CLOTRIM) 1 % cream APPLY TOPICALLY TO AFFECTED AREA(S) ON BILATERAL GROIN TWICE DAILY - ammonium lactate (LAC-HYDRIN) 12 % cream APPLY TOPICALLY TO AFFECTED AREA(S) ON LEGS AT BEDTIME - wuxtzej-tpwbrenof-wlj walden D3 (OYSTER SHELL CALCIUM-VITAMIN D) 500 [...] DAILY *SHAKE GENTLY BEFORE USING* - Fish Oil-Weir-3 Fatty Acids (FISH OIL) 340-1,000 mg cap [...] (more content not included)... Normal [facility] Vital Signs Date Time Vital Sign Value Performing Clinician Facility 12-21-2023 17:32-0400 Diastolic Blood Pressure Non-Invasive 83 mm[Hg] TABATHA PAGE DO [facility] 12-21-2023 17:32-0400 Heart rate 66 /min TABATHA PAGE DO [facility] 12-21-2023 17:32-0400 Respiratory rate 16 /min TABATHA PAGE DO [facility] 12-21-2023 17:32-0400 Systolic Blood Pressure Non-Invasive 123 mm[Hg] TABATHA CAMILO DO [facility] 12-21-2023 16:06-0400 Diastolic Blood Pressure Non-Invasive 86 mm[Hg] TABATHA PAGE DO [facility] 12-21-2023 16:06-0400 Heart rate 72 /min TABATHAMARISSA PAGE DO [facility] 12-21-2023 16:06-0400 Mean blood pressure 97 mm[Hg] TABATHA PAGE DO [facility] 12-21-2023 16:06-0400 Respiratory rate 18 /min TABATHA PAGE DO [facility] 12-21-2023 16:06-0400 Systolic Blood Pressure Non-Invasive 116 mm[Hg] TABATHA PAGE DO [facility] 12-21-2023 14:11-0400 Blood Pressure Location TABATHA PAGE DO [facility] 12-21-2023 14:11-0400 Body temperature 97.88 [degF] TABATHA PAGE DO [facility] 12-21-2023 14:11-0400 Diastolic Blood Pressure Non-Invasive 85 mm[Hg] TABATHA PAGE DO [facility] 12-21-2023 14:11-0400 Heart rate 63 /min TABATHA PAGE DO [facility] 12-21-2023 14:11-0400 Respiratory rate 16 /min TABATHA PAGE DO [facility] 12-21-2023 14:11-0400 Systolic Blood Pressure Non-Invasive 130 mm[Hg] TABATHA PAGE DO [facility] 11-18-2023 16:05-0400 Body mass index (BMI) [Ratio] 58.07 kg/m2 Sherif Thakur MD Work Phone: [facility] 11-18-2023 16:05-0400 Body weight 119.6 kg Sherif Thakur MD Work Phone: [facility] 11-18-2023 16:05-0400 Diastolic blood pressure 80 mm[Hg] Sherif Thakur MD Work Phone: [facility] Comment on above: L wrist 11-18-2023 16:05-0400 Heart rate 75 /min Sherif Thakur MD Work Phone: [facility] 11-18-2023 16:05-0400 Respiratory rate 16 /min Sherif Thakur MD Work Phone: [facility] 11-18-2023 16:05-0400 Systolic blood pressure 134 mm[Hg] Sherif Thakur MD Work Phone: [facility] Comment on above: L wrist 11-13-2023 11:09-0400 Body mass index (BMI) [Ratio] 57.05 kg/m2 Elsie Older ACTING PROFESSOR.HOURLY SHIFT Work Phone: [facility] 11-13-2023 11:09-0400 Body temperature 98.2 [degF] Elsie Older ACTING PROFESSOR.HOURLY SHIFT Work Phone: [facility] 11-13-2023 11:09-0400 Body weight 117.5 kg Elsie Older ACTING PROFESSOR.HOURLY SHIFT Work Phone: [facility] 11-13-2023 11:09-0400 Diastolic blood pressure 84 mm[Hg] Elsie Older ACTING PROFESSOR.HOURLY SHIFT Work Phone: [facility] 11-13-2023 11:09-0400 Heart rate 60 /min Elsie Older ACTING PROFESSOR.HOURLY SHIFT Work Phone: [facility] 11-13-2023 11:09-0400 Respiratory rate 16 /min Elsie Older ACTING PROFESSOR.HOURLY SHIFT Work Phone: [facility] 11-13-2023 11:09-0400 SaO2% (BldA) [Mass fraction] 98 % Elsie Older ACTING PROFESSOR.HOURLY SHIFT Work Phone: [facility] 11-13-2023 11:09-0400 Systolic blood pressure 136 mm[Hg] Elsie Older ACTING PROFESSOR.HOURLY SHIFT Work Phone: [facility] 12-05-2022 10:40-0400 Body height 143 cm Sherif C Ganta Work Phone: QY-Gymjtaof-Ybxbo [facility] 1500 Work Phone: 12-05-2022 10:40-0400 Body mass index (BMI) [Ratio] 53.24 kg/m2 Sherif C Ganta Work Phone: BN-Bdoekrrk-Jndmp [facility] 1500 Work Phone: 12-05-2022 10:40-0400 Body surface area Derived from formula 1.93 m2 Sherif C Ganta Work Phone: TF-Obkzaide-Icxyy [facility] 1500 Work Phone: 12-05-2022 10:40-0400 Body temperature 98 [degF] Sherif C Ganta Work Phone: AD-Vsxdlqoj-Jqjqn [facility] 1500 Work Phone: 12-05-2022 10:40-0400 Body weight 108.86 kg Sherif C Ganta Work Phone: IJ-Hniedwjc-Aqclg [facility] 1500 Work Phone: 12-05-2022 10:40-0400 Heart rate 60 /min Sherif C Ganta Work Phone: FN-Khpthsqw-Jtxfp [facility] 1500 Work Phone: 12-05-2022 10:40-0400 Respiratory rate 24 /min Sherif C Ganta Work Phone: BK-Ybynstlo-Tozto [facility] 1500 Work Phone: 12-05-2022 10:40-0400 SaO2% (BldA) [Mass fraction] 99 % Sherif Thakur Work Phone: QC-Lfsiwsfc-Youbq [facility] [address] Work Phone: 10-23-2022 14:47-0400 Body weight 111.13 kg Elsie Older ACTING PROFESSOR.HOURLY SHIFT Work Phone: [facility] 10-23-2022 14:47-0400 Diastolic blood pressure 78 mm[Hg] Elsie Older ACTING PROFESSOR.HOURLY SHIFT Work Phone: [facility] 10-23-2022 14:47-0400 Heart rate 62 /min Elsie Older ACTING PROFESSOR.HOURLY SHIFT Work Phone: [facility] 10-23-2022 14:47-0400 Respiratory rate 16 /min Elsie Older ACTING PROFESSOR.HOURLY SHIFT Work Phone: [facility] 10-23-2022 14:47-0400 SaO2% (BldA) [Mass fraction] 99 % Elsie Older ACTING PROFESSOR.HOURLY SHIFT Work Phone: [facility] 10-23-2022 14:47-0400 Systolic blood pressure 128 mm[Hg] Elsie Older ACTING PROFESSOR.HOURLY SHIFT Work Phone: [facility] 05-02-2022 10:50-0500 Body height 142.2 cm Sherif Thakur MD Work Phone: [facility] 05-02-2022 10:50-0500 Body weight 111.58 kg Sherif Thakur MD Work Phone: [facility] 05-02-2022 10:50-0500 Diastolic blood pressure 68 mm[Hg] Sherif Thakur MD Work Phone: [facility] 05-02-2022 10:50-0500 Heart rate 53 /min Sherif Thakur MD Work Phone: [facility] 05-02-2022 10:50-0500 Respiratory rate 16 /min Sherif Thakur MD Work Phone: [facility] 05-02-2022 10:50-0500 SaO2% (BldA) [Mass fraction] 96 % Sherif Thakur MD Work Phone: [facility] 05-02-2022 10:50-0500 Systolic blood pressure 112 mm[Hg] Sherif Thakur MD Work Phone: [facility] 03-21-2022 12:59-0500 Body temperature 98.2 [degF] Elsie Older ACTING PROFESSOR.HOURLY SHIFT Work Phone: [facility] 03-21-2022 12:59-0500 Body weight 112.95 kg Elsie Older ACTING PROFESSOR.HOURLY SHIFT Work Phone: [facility] 03-21-2022 12:59-0500 Diastolic blood pressure 72 mm[Hg] Elsie Older ACTING PROFESSOR.HOURLY SHIFT Work Phone: [facility] 03-21-2022 12:59-0500 Heart rate 60 /min Elsie Older ACTING PROFESSOR.HOURLY SHIFT Work Phone: [facility] 03-21-2022 12:59-0500 Respiratory rate 16 /min Elsie Older ACTING PROFESSOR.HOURLY SHIFT Work Phone: [facility] 03-21-2022 12:59-0500 SaO2% (BldA) [Mass fraction] 99 % Elsie Older ACTING PROFESSOR.HOURLY SHIFT Work Phone: [facility] 03-21-2022 12:59-0500 Systolic blood pressure 118 mm[Hg] Elsie Older ACTING PROFESSOR.HOURLY SHIFT Work Phone: [facility] 01-29-2022 09:48-0500 Body weight 110.68 kg Sherif Thakur MD Work Phone: [facility] 01-29-2022 09:48-0500 Diastolic blood pressure 68 mm[Hg] Sherif Thakur MD Work Phone: [facility] 01-29-2022 09:48-0500 Heart rate 66 /min Sherif Thakur MD Work Phone: [facility] 01-29-2022 09:48-0500 Respiratory rate 16 /min Sherif Thakur MD Work Phone: [facility] 01-29-2022 09:48-0500 SaO2% (BldA) [Mass fraction] 96 % Sherif Thakur MD Work Phone: [facility] 01-29-2022 09:48-0500 Systolic blood pressure 118 mm[Hg] Sherif Thakur MD Work Phone: [facility] 11-29-2021 10:39-0400 Body height 143 cm Sherif Thakur Work Phone: [facility] 1100 DO Work Phone: 11-29-2021 10:39-0400 Body mass index (BMI) [Ratio] 52.42 kg/m2 Sherif Thakur Work Phone: [facility] 1100 DO Work Phone: 11-29-2021 10:39-0400 Body surface area Derived from formula 1.91 m2 Sherif Thakur Work Phone: [facility] 1100 DO Work Phone: 11-29-2021 10:39-0400 Body temperature 97.9 [degF] Sherif Thakur Work Phone: [facility] 1100 DO Work Phone: 11-29-2021 10:39-0400 Body weight 107.19 kg Sherif Thakur Work Phone: [facility] [address] DO Work Phone: 11-29-2021 10:39-0400 Diastolic blood pressure 90 mm[Hg] Sherif Thakur Work Phone: [facility] [address] DO Work Phone: 11-29-2021 10:39-0400 Heart rate 60 /min Sherif Thakur Work Phone: [facility] [address] DO Work Phone: 11-29-2021 10:39-0400 Systolic blood pressure 141 mm[Hg] Sherif Thakur Work Phone: [facility] 1100 DO Work Phone: 10-29-2021 09:56-0400 Body height 142.2 cm Sherif Thakur MD Work Phone: [facility] 10-29-2021 09:56-0400 Body temperature 99.5 [degF] Sherif Thakur MD Work Phone: [facility] 10-29-2021 09:56-0400 Body weight 109.77 kg Sherif Thakur MD Work Phone: [facility] 10-29-2021 09:56-0400 Diastolic blood pressure 62 mm[Hg] Sherif Thakur MD Work Phone: [facility] 10-29-2021 09:56-0400 Heart rate 56 /min Sherif Thakur MD Work Phone: [facility] 10-29-2021 09:56-0400 Respiratory rate 16 /min Sherif Thakur MD Work Phone: [facility] 10-29-2021 09:56-0400 SaO2% (BldA) [Mass fraction] 95 % Sherif Thakur MD Work Phone: [facility] 10-29-2021 09:56-0400 Systolic blood pressure 118 mm[Hg] Sherif Thakur MD Work Phone: [facility] 08-20-2021 15:53-0400 Body weight 110.22 kg Rae Older ACTING PROFESSOR.HOURLY SHIFT Work Phone: [facility] 08-20-2021 15:53-0400 Diastolic blood pressure 78 mm[Hg] Rae Older ACTING PROFESSOR.HOURLY SHIFT Work Phone: [facility] 08-20-2021 15:53-0400 Heart rate 64 /min Rae Older ACTING PROFESSOR.HOURLY SHIFT Work Phone: [facility] 08-20-2021 15:53-0400 Systolic blood pressure 132 mm[Hg] Rae Older ACTING PROFESSOR.HOURLY SHIFT Work Phone: [facility] 06-28-2021 09:56-0400 Body temperature 98.6 [degF] Sherif Thakur MD Work Phone: [facility] 06-28-2021 09:56-0400 Body weight 109.77 kg Sherif Thakur MD Work Phone: [facility] [place] 06-28-2021 09:56-0400 Diastolic blood pressure 86 mm[Hg] Sherif Thakur MD Work Phone: [facility] [place] 06-28-2021 09:56-0400 Heart rate 51 /min Sherif Thakur MD Work Phone: [facility] [place] 06-28-2021 09:56-0400 Respiratory rate 18 /min Sherif Thakur MD Work Phone: [facility] [place] 06-28-2021 09:56-0400 SaO2% (BldA) [Mass fraction] 99 % Sherif Thakur MD Work Phone: [facility] [place] 06-28-2021 09:56-0400 Systolic blood pressure 136 mm[Hg] Sherif Thakur MD Work Phone: [facility] [place] 05-03-2021 11:33-0500 Body mass index (BMI) [Ratio] 50.2 kg/m2 Sherif Thakur Work Phone: LR-Gxmvdnfr-Kpyix [place] 1500 Work Phone: 05-03-2021 11:33-0500 Body surface area Derived from formula 1.88 m2 Sherif Thakur Work Phone: AS-Xpfojvjo-Ynwem [place] 1500 Work Phone: 05-03-2021 11:33-0500 Body temperature 97.2 [degF] Sherif Thakur Work Phone: RQ-Ryusyimz-Hwusg [facility] 1500 Work Phone: 05-03-2021 11:33-0500 Body weight 102.65 kg Sherif Mark Ganta Work Phone: AS-Rqzskgog-Shpec [place] 1500 Work Phone: 05-03-2021 11:33-0500 Diastolic blood pressure 83 mm[Hg] Sherif C Ganta Work Phone: FS-Ctpfudle-Moraj [place] 1500 Work Phone: 05-03-2021 11:33-0500 Heart rate 83 /min Sherif C Ganta Work Phone: ER-Edghobbc-Bqhfo [place] 1500 Work Phone: 05-03-2021 11:33-0500 Respiratory rate 22 /min Sherif C Ganta Work Phone: JD-Wfhjfppp-Iywkt [place] 1500 Work Phone: 05-03-2021 11:33-0500 Systolic blood pressure 136 mm[Hg] Sherif C Ganta Work Phone: KV-Bixeeeil-Lcjse [facility] 1500 Work Phone: 11-05-2018 12:32-0400 BMI (Body Mass Index) 52.81 kg/m2 Mima-Luz Beckerillaci LC-Yrvhbeqr-Czerj il[place] Work Phone: 11-05-2018 12:32-0400 Body weight [...] (Body Surface Area) 1.92 m2 Mima-Luz Schillaci TD-Jgbdhksn-Hiazy [place] Work Phone: 11-05-2018 12:32-0400 Height 143 cm Smita Salgado MG-Genetics- Isidro ilana Work Phone: 11-05-2018 12:32-0400 Pulse (Heart Rate) 62 /min Smita SHEN-Geneti cs-Isidro il[place] Work Phone: Encounters Encounter Date Encounter Type Care Provider Facility Start: 12-22-2023 End: 12-22-2023 Telephone encounter Sherif Thakur MD Work Phone: [facility] [place] Comment on above: Medication Question Start: 12-21-2023 End: 12-21-2023 Emergency department patient visit TABATHA PAGE DO [facility] Start: 12-18-2023 End: 12-22-2023 Telephone encounter Sherif Thakur MD Work Phone: [facility] [place] Comment on above: Medication Problem Start: 12-17-2023 End: 12-17-2023 Telephone encounter Sherif Thakur MD Work Phone: [facility] [place] Comment on above: Patient Update Start: 12-12-2023 End: 12-12-2023 Telephone encounter Sherif Thakur MD Work Phone: [facility] [place] Comment on above: weight gain Start: 12-05-2023 End: 12-08-2023 Telephone encounter Sherif Thakur MD Work Phone: [facility] [place] Comment on above: recert patient for s killed nursing service Start: 12-04-2023 End: 12-04-2023 ambulatory [facility] Start: 11-24-2023 End: 11-24-2023 Refill Sherif Thakur MD Work Phone: [facility] [place] Comment on above: Refill Request Start: 11-18-2023 End: 11-18-2023 Office outpatient visit 25 minutes Sherif Thakur MD Work Phone: [facility] [place] Comment on above: Lymphedema (Primary Dx) Start: 11-18-2023 End: 11-18-2023 ambulatory SHERIF THAKUR Facility:[facility] Start: 11-13-2023 End: 11-13-2023 Telephone encounter Elsie Kaplan APRN.[employer] Work Phone: [facility] [place] Comment on above: Results Start: 11-13-2023 End: 11-13-2023 ambulatory ELSIE KALPAN Facility:[facility] Start: 11-13-2023 End: 11-13-2023 Patient encounter procedure Elsie Kaplan ACTING PROFESSOR.[employer] Work Phone: [facility] [place] Comment on above: Cellulitis of left l ower extremity (Primary Dx); Pain of left lower extremity; Edema, unspecified type Start: 11-12-2023 End: 11-13-2023 Telephone encounter Sherif Thakur MD Work Phone: [facility] [place] Comment on above: Patient Update Start: 10-09-2023 Telephone encounter Sherif collier MD Work Phone: [facility] [place] Comment on above: recert orders Patient Update Start: 09-19-2023 Refill Sherif Thakur M D Work Phone: [facility] [place] Comment on above: Refill Request Start: 08-22-2023 Refill Sherif Reddyta M D Work Phone: [facility] [place] Comment on above: Refill Request Start: 08-11-2023 Refill Elsie Kaplan APRN .[employer] Work Phone: [facility] [place] Comment on above: Refill Request Start: 08-07-2023 Telephone encounter Sherif collier MD Work Phone: [facility] [place] Start: 08-06-2023 Refill Sherif Thakur M D Work Phone: [facility] Comment on above: Refill Request Start: 07-28-2023 Refill Sherif Thakur M D Work Phone: [facility] [place] Comment on above: error Start: 07-21-2023 Refill Sherif Reddyta M D Work Phone: [facility] [place] Comment on above: Refill Request Start: 07-07-2023 Refill Teresa Hanna PRN.[employer] Work Phone: [facility] [place] Comment on above: Refill Request Start: 06-12-2023 Refill Elsie Older ACTING PROFESSOR .[employer] Work Phone: [facility] [place] Comment on above: Refill Request Start: 05-30-2023 Telephone encounter Elsie Kaplan ACTING PROFESSOR.[employer] Work Phone: [facility] [place] Comment on above: Orders Start: 05-26-2023 Telephone encounter Sherif collier MD Work Phone: [facility] [place] Comment on above: Insurance Authorizat ion Start: 03-19-2023 End: 03-19-2023 ambulatory [facility] Facility:[facility] Start: 02-28-2023 End: 02-28-2023 ambulatory [facility] Facility:[facility] Start: 02-04-2023 Refill Elsie Older ACTING PROFESSOR .[employer] Work Phone: [facility] [place] Comment on above: Refill Request Start: 01-20-2023 Refill Sherif Bowling Work Phone: [facility] [place] Comment on above: Refill Request Start: 12-12-2022 Refill Sherif Bowling Work Phone: [facility] [place] Comment on above: Refill Request Start: 12-05-2022 Office outpatient vi sit 40 minutes Sherif Thakur Work Phone: MY-Byspjagh-Uyldvxzs 1500 Work Phone: Start: 12-05-2022 [id number] Start: 10-23-2022 End: 10-23-2022 Refill Elsie Older ACTING PROFESSOR.[employer] Work Phone: [facility] [place] Comment on above: Refill Request Lymphedema (Primary Dx); Obstructive sleep apnea syndrome; Acquired hypothyroidism; Mild intermittent asthma without complication Start: 10-10-2022 Telephone encounter Sherif collier MD Work Phone: [facility] [place] Comment on above: Patient Question Start: 10-08-2022 ambulatory Sherif Bowling Work Phone: [facility] [place] Start: 10-08-2022 Telephone encounter Sherif collier MD Work Phone: [facility] [place] Comment on above: Medication Problem Start: 08-26-2022 Refill Sherif Bowling Work Phone: [facility] [place] Comment on above: Refill Request Start: 08-23-2022 Refill Elsie Kaplan ACTING PROFESSOR .[employer] Work Phone: [facility] [place] Comment on above: Refill Request Start: 08-07-2022 Refill Elsie Kaplan ACTING PROFESSOR .[employer] Work Phone: [facility] [place] Comment on above: Refill Request Start: 07-18-2022 Refill Sherif Bowling Work Phone: [address] [place] [address] Comment on above: Refill Request Start: 06-06-2022 Telephone encounter Sherif collier MD Work Phone: [facility] [place] Comment on above: Orders (Medication A dministration Consent ) Start: 06-04-2022 Refill Elsie Kaplan ACTING PROFESSOR .[employer] Work Phone: [facility] [place] Comment on above: Refill Request Start: 05-15-2022 Refill Elsie Kaplan ACTING PROFESSOR .[employer] Work Phone: [facility] [place] Comment on above: Refill Request Start: 05-02-2022 End: 05-02-2022 Patient encounter procedure Sherif Thakur MD Work Phone: [facility] [place] Comment on above: Annual physical exam (Primary Dx); Hypothalamic hypogonadism (HCC); Prader-Willi syndrome; Obstructive sleep apnea syndrome; Mild intermittent asthma without complication; Acquired hypothyroidism; Lymphedema of left lower extremity Start: 03-21-2022 End: 03-21-2022 Patient encounter procedure Elsie Kaplan APRN.[employer] Work Phone: [facility] [place] Comment on above: Bilateral chronic kn ee pain (Primary Dx); Acute cough Start: 02-05-2022 Refill Elsie Older ACTING PROFESSOR .[employer] Work Phone: [facility] [place] Comment on above: Refill Request Start: 01-29-2022 End: 01-29-2022 Patient encounter procedure Sherif Thakur MD Work Phone: [facility] [place] Comment on above: Obstructive sleep ap shelby syndrome (Primary Dx); Encounter for immunization; Mild intermittent asthma without complication; Acquired hypothyroidism; Lymphedema of right lower extremity; Lymphedema of left lower extremity; Sleep deprivation Start: 01-07-2022 Telephone encounter Sherif collier MD Work Phone: [facility] [place] Comment on above: Orders; handicap cristina card rx Start: 12-13-2021 Telephone encounter Sherif collier MD Work Phone: [facility] [place] Comment on above: Patient Question Start: 11-29-2021 Telephone encounter Sherif collier MD Work Phone: [facility] [place] Comment on above: Orders Start: 11-29-2021 Patient encounter procedure Sherif Thakur Work Phone: [facility] [place] Hts 1100 DO Work Phone: Start: 10-29-2021 End: 10-29-2021 Patient encounter procedure Sherif Thakur MD Work Phone: [facility] [place] Comment on above: Prader-Willi syndrom e (Primary Dx); Skin ulcer, limited to breakdown of skin (HCC); Pedal edema; Mild persistent asthma without complication; Obstructive sleep apnea syndrome Start: 09-20-2021 Refill Sherif Bowling Work Phone: [facility] [place] Comment on above: Refill Request Start: 09-04-2021 Refill Yazan Hanna PRN.CNP Work Phone: [facility] [place] Comment on above: Refill Request Start: 08-29-2021 Telephone encounter Sherif collier MD Work Phone: [facility] [place] Comment on above: Home health update Start: 08-20-2021 End: 08-20-2021 Patient encounter procedure Rae Kaplan APRN.HOURLY SHIFT Work Phone: [facility] [place] Comment on above: Skin ulcer of left t high, limited to breakdown of skin (HCC) (Primary Dx) Start: 08-14-2021 Refill aYzan Hanna PRN.CNP Work Phone: [facility] [place] Comment on above: Refill Request Start: 07-06-2021 Telephone encounter Sherif collier MD Work Phone: [facility] [place] Comment on above: Order request Start: 06-28-2021 Telephone encounter Sherif collier MD Work Phone: [facility] [place] Comment on above: PT Order Question Start: 06-28-2021 End: 06-28-2021 Patient encounter procedure Sherif Thakur MD Work Phone: [facility] [place] Comment on above: Prader-Willi syndrom e (Primary Dx); SOB (shortness of breath); Physical therapy evaluation, initial Start: 06-28-2021 End: 06-28-2021 Patient encounter status Sherif Thakur MD Work Phone: [facility] [place] Start: 06-22-2021 Telephone encounter Sherif collier MD Work Phone: [facility] [place] Comment on above: [facility] work (verbal order needed) Start: 06-13-2021 Telephone encounter Sherif collier MD Work Phone: [facility] [place] Comment on above: Forms Start: 06-06-2021 Telephone encounter Sherif collier MD Work Phone: [facility] [place] Comment on above: Results Start: 05-31-2021 End: 05-31-2021 Subsequent hospital visit by physician [facility] [address] Radiology Comment on above: Left groin pain [R10 .32] Start: 05-03-2021 Nutrition therapy Sherif collier Work Phone: OF-Uqpszpcp-Ctmefgxl 1500 Work Phone: Start: 05-03-2021 Patient encounter procedure Sherif Thakur Work Phone: XM-Cmlpwtxu-Ltgpnlsj 1500 Work Phone: Start: 12-02-2019 Patient encounter procedure [facility] Work Phone: Start: 08-05-2019 Patient encounter procedure [facility] Work Phone: Start: 05-06-2019 Patient encounter procedure [facility] Work Phone: Start: 11-05-2018 Patient encounter procedure Mima-Luz Salgado XP-Xhvphikq-Dhgvnokz Work Phone: Start: 05-07-2018 Patient encounter procedure Mima-Luz Salgado ZK-Jpgszrgm-Iizqkfup Work Phone: Start: 09-04-2017 Patient encounter procedure Mima-Luz Salgado SQ-Xeztizpx-Hqnuiyul Work Phone: Start: 01-01-2017 End: 01-01-2017 Ambulatory [facility] Facility:[facility] Start: 12-31-2016 Patient encounter procedure Mima-Luz Salgado VX-Qkxstmel-Tmqfetgx Work Phone: Start: 12-13-2016 Patient encounter procedure Mima-Luz Salgado EH-Annkfssv-Aauhebvh Work Phone: Start: 12-10-2016 Patient encounter procedure Mima-Luz Salgado MY-Awotiyci-Mnmdergn Work Phone: Start: 12-05-2016 Patient encounter procedure Smita Salgado MK-Plggnztg-Ywcldiug Work Phone: Procedures Date Procedure Procedure Detail [...] martinezjose Start: 12-06-2019 Hemoglobin glycosylated a1c Lexus Jakcson Start: 12-06-2019 Hepatic function panel Lexus Moralezronkvng [...] Author Start: 05-22-2026 HPV TESTING HPV TESTING [facility] [place] Start: 05-22-2026 PAP TESTING PAP TESTING [facility] [place] Start: 05-22-2026 Screening for malign ant neoplasm of cervix [facility] [place] Start: 01-09-2025 Urine microalbumin profile [facility] [place] Start: 11-17-2024 Annual PCP Team Coat Maker salvatore Disease Visit Annual PCP Team Chronic Disease Visit [facility] [place] Start: 11-12-2024 Annual PCP Team Coat Maker salvatore Disease Visit Annual PCP Team Chronic Disease Visit [facility] [place] Start: 07-03-2024 Screening for malign ant neoplasm of breast Mammogram Screening [facility] [place] Start: 03-22-2024 End: 03-22-2024 Patient encounter procedure 03/22/2024 1:00 PM EST Office Visit [facility] [place] [address] [place], [place] [id number] Elsie Kaplan APRN.HOURLY SHIFT [address] [facility] [place] [id number] physical [facility] [place] Comment on above: physical Start: 03-19-2024 Annual PCP Team Coat Maker salvatore Disease Visit Annual PCP Team Chronic Disease Visit [facility] [place] Start: 02-20-2024 End: 02-20-2024 Patient encounter procedure 02/20/2024 9:00 AM EST Office Visit [facility] [place] [address] [place] [address] Sherif Thakur MD [address] [place] [address] 3 mo follow up; BL lymphedema [facility] [place] Comment on above: 3 mo follow up; BL l ymphedema Start: 01-01-2024 End: 01-01-2024 Patient encounter procedure 01/01/2024 3:20 PM EDT Office Visit [facility] [place] [address] [place] [address] Sherif Thakur MD [address] [place] [address] [facility] f/u 12-21-23. s/o SOB [facility] [place] Comment on above: [facility] f/u 12-08. s/o SOB Start: 11-18-2023 End: 11-18-2023 Patient encounter procedure 11/18/2023 3:40 PM EDT Office Visit [facility] [place] [address] [place] [address] Sherif Thakur MD [address] [place] [address] compression hose, needs to be set up with a compression class [facility] [place] Comment on above: compression hose, ne eds to be set up with a compression class Start: 11-09-2023 Covid-19 Vaccine ( season) Covid-19 Vaccine () [facility] [place] Start: 11-09-2023 Covid-19 Vaccine ( season) Covid-19 Vaccine () [facility] [place] Start: 11-09-[address] [facility] Start: 10-24-2023 ANNUAL PCP TEAM PRINT GRAPHIC DESIGNER SALVATORE DISEASE VISIT ANNUAL PCP TEAM CHRONIC DISEASE VISIT [facility] [place] Start: 07-02-2023 ANNUAL PCP TEAM PRINT GRAPHIC DESIGNER SALVATORE DISEASE VISIT ANNUAL PCP TEAM CHRONIC DISEASE VISIT [facility] [place] Start: 05-02-2023 ANNUAL PCP TEAM PRINT GRAPHIC DESIGNER SALVATORE DISEASE VISIT ANNUAL PCP TEAM CHRONIC DISEASE VISIT [facility] [place] Start: 03-21-2023 ANNUAL PCP TEAM PRINT GRAPHIC DESIGNER SALVATORE DISEASE VISIT ANNUAL PCP TEAM CHRONIC DISEASE VISIT [facility] [place] Start: 03-10-2023 Behavioral Health Screening Behavioral Health Screening [facility] [place] Start: 03-10-2023 Depression Assessment Depression Ass essment [facility] [place] Start: 01-29-2023 ANNUAL PCP TEAM PRINT GRAPHIC DESIGNER SALVATORE DISEASE VISIT ANNUAL PCP TEAM CHRONIC DISEASE VISIT [facility] [place] Start: 12-05-2022 PRAISAURO, Provider : Marisol Mohamud, Status: Pen, Time: 10:30 AM JOSLYN, Provider: Marisol Mohamud, Status: Pen, Time: 10:30 AM [facility] 1100 DO Work Phone: Start: 11-08-2022 Covid-19 Vaccine ( season) Covid-19 Vaccine ( season) [facility] [place] Start: 11-08-[address] [facility] Start: 10-29-2022 Adult depression screening assessment DEPRESSION SCREENING [facility] [place] Start: 10-29-2022 ANNUAL PCP TEAM PRINT GRAPHIC DESIGNER SALVATORE DISEASE VISIT ANNUAL PCP TEAM CHRONIC DISEASE VISIT [facility] [place] Start: 10-08-2022 End: 12-08-2022 Basic metabolic 2000 panel - Serum or Plasma BASIC METABOLIC PNL Lab Routine Medication management Expected: 10/08/2022, Expires: 12/08/2022 [facility] Work Phone: Comment on above: Expected: 10/08/2022 , Expires: 12/08/2022 Start: 10-08-2022 End: 12-08-2022 Thyrotropin [Units/volume] in Serum or Plasma TSH BLD Lab Routine Acquired hypothyroidism Expected: 10/08/2022, Expires: 12/08/2022 [facility] Work Phone: Comment on above: Expected: 10/08/2022 , Expires: 12/08/2022 Start: 08-20-2022 ANNUAL PCP TEAM PRINT GRAPHIC DESIGNER SALVATORE DISEASE VISIT ANNUAL PCP TEAM CHRONIC DISEASE VISIT [facility] [place] Start: 2022 Mammography [facility] [place] Start: 2022 Screening for malign ant neoplasm of breast Mammogram Screening [facility] [place] Start: 06-28-2022 ANNUAL PCP TEAM PRINT GRAPHIC DESIGNER SALVATORE DISEASE VISIT ANNUAL PCP TEAM CHRONIC DISEASE VISIT [facility] [place] Start: 04-23-2022 ANNUAL PCP TEAM PRINT GRAPHIC DESIGNER SALVATORE DISEASE VISIT ANNUAL PCP TEAM CHRONIC DISEASE VISIT [facility] [place] Start: 03-10-2022 DEPRESSION ASSESSMENT DEPRESSION ASS ESSMENT [facility] [place] Start: 11-29-2021 End: 01-29-2022 25-hydroxyvitamin D3 [Mass/volume] in Serum or Plasma VITAMIN D 25 HYDROXY Lab Routine Vitamin D deficiency Expected: 11/29/2021, Expires: 01/29/2022 [facility] Work Phone: Comment on above: Expected: 11/29/2021 , Expires: 01/29/2022 Start: 11-29-2021 End: 01-29-2022 CBC W Auto Differential panel - Blood CBC + DIFF Lab Routine Prader-Willi syndrome Expected: 11/29/2021, Expires: 01/29/2022 [facility] Work Phone: Comment on above: Expected: 11/29/2021 , Expires: 01/29/2022 Start: 11-29-2021 End: 01-29-2022 Comprehensive metabolic 2000 panel - Serum or Plasma COMP METABOLIC PANEL Lab Routine Encounter for screening for diabetes mellitus Expected: 11/29/2021, Expires: 01/29/2022 [facility] Work Phone: Comment on above: Expected: 11/29/2021 , Expires: 01/29/2022 Start: 11-29-2021 End: 01-29-2022 Hemoglobin A1c in Blood HGB A1C Lab Routine Elevated blood sugar Expected: 11/29/2021, Expires: 01/29/2022 [facility] Work Phone: Comment on above: Expected: 11/29/2021 , Expires: 01/29/2022 Start: 11-29-2021 End: 01-29-2022 Lipid 1996 panel - Serum or Plasma LIPID PANEL BASIC Lab Routine Lipid screening Expected: 11/29/2021, Expires: 01/29/2022 [facility] Work Phone: Comment on above: Expected: 11/29/2021 , Expires: 01/29/2022 Start: 11-29-2021 End: 01-29-2022 Thyrotropin [Units/volume] in Serum or Plasma TSH BLD Lab Routine Hypothyroidism, unspecified type Expected: 11/29/2021, Expires: 01/29/2022 [facility] Work Phone: Comment on above: Expected: 11/29/2021 , Expires: 01/29/2022 Start: 11-08-2021 Influenza vaccination [facility] Start: 10-31-2021 FUV, Provider: Marisol Mohamud, Status: Pen, Time: 11:30 AM FUV, Provider: Marisol Mohamud, Status: Pen, Time: 11:30 AM NQ-Dluzxsmz-Mxjwt ilana 1500 Work Phone: Start: 03-10-2021 DEPRESSION ASSESSMENT DEPRESSION ASS ESSMENT [facility] [place] Start: 12-13-2020 COVID-19 VACCINE (3 - Booster for Moderna series) COVID-19 VACCINE (3 - Booster for Moderna series) [facility] [place] Start: 11-08-2020 Influenza vaccination INFLUENZA (#1) [facility] [place] Start: 09-07-2020 COVID-19 VACCINE (3 - Booster for Moderna series) COVID-19 VACCINE (3 - Booster for Moderna series) [facility] [place] Start: 12-06-2019 25 hydroxy includes fractions if performed Vitamin D 25-Hydroxy [facility] [employer] Work Phone: Start: 12-06-2019 Echocardiography [facility] [employer] Work Phone: Start: 12-06-2019 EKG study Electrocardiogram EKG [facility] [employer] Work Phone: Start: 12-06-2019 HbA1c (Bld) [Mass fraction] Hemoglobin A1C [facility] [employer] Work Phone: Start: 12-06-2019 Hepatic function panel Hepatic Funct ion Panel [facility] [employer] Work Phone: Start: 12-06-2019 Lipid panel Lipid Panel [facility] Work Phone: Start: 12-06-2019 Urea, electrolytes a nd creatinine measurement Renal Function Panel [facility] Work Phone: Start: 12-06-2019 Urnls dip stick/tabl et rgnt auto w/o microscopy Urinalysis [facility] Work Phone: Start: 05-26-2019 Adult depression screening assessment DEPRESSION SCREENING [facility] [place] Start: 04-11-2007 PNEUMOCOCCAL (2 - PCV) PNEUMOCOCCAL (2 - PCV) [facility] [place] Start: 04-11-2007 Pneumococcal vaccination Pneum ococcal Vaccine (2 - PCV) [facility] [place] Start: 2001 Hepatitis B Vaccine (1 of 3 - 19+ 3-dose series) Hepatitis B Vaccine (1 of 3 - 19+ 3-dose series) [facility] [place] Start: 2000 Anxiety Screening Anxiety Screening [facility] [place] Start: 2000 Depression Screening Depression Scre ening [facility] [place] Start: 2000 SPIROMETRY SPIROMETRY [facility] [place] Start: 1982 HEPATITIS B (1 of 3 - 3-dose series) HEPATITIS B (1 of 3 - 3-dose series) [facility] [place] Start: 1982 Hepatitis B Vaccine (1 of 3 - 3-dose series) Hepatitis B Vaccine (1 of 3 - 3-dose series) [facility] [place] End: 06-28-2022 Echocardiography ECHO Cardiology Routine Prader-Willi syndrome SOB (shortness of breath) 1 Occurrences starting 06/28/2021 until 06/28/2022 [facility] Work Phone: Comment on above: 1 Occurrences starti ng 06/28/2021 until 06/28/2022 [facility] NEGATED: Highlighted row has been ruled out! Planned Goals not documented [facility] Work Phone: Immunizations Immunization Date Immunization Notes Care Provider Shani aleman 01-29-2022 COVID-19 booster vaccine, age 12+ yr, bivalent (PFIZER-BIONTFantastec) Sherif Thakur MD Work Phone: [facility] [place] 07-13-2020 COVID-19 vaccine, fu ll dose (MODERNA) Sherif Thakur MD Work Phone: [facility] [place] Work Phone: 06-15-2020 COVID-19 vaccine, fu ll dose (MODERNA) Sherif Thakur MD Work Phone: [facility] [place] Work Phone: 12-22-2019 influenza, injectabl e, quadrivalent, contains preservative Sherif Thakur MD Work Phone: [facility] [place] Work Phone: 12-22-2019 influenza virus vaccine, unspecified formulation Sherif Thakur MD Work Phone: [facility] [place] 01-19-2019 influenza, injectabl e, quadrivalent, contains preservative Sherif Thaukr MD Work Phone: [facility] [place] 11-26-2017 influenza, injectabl e, quadrivalent, preservative free Sherif Thakur MD Work Phone: [facility] [place] Work Phone: 01-27-2017 influenza, injectabl e, quadrivalent, contains preservative Sherif Thakur MD Work Phone: [facility] [place] Work Phone: 12-13-2015 influenza, injectabl e, quadrivalent, contains preservative Sherif Thakur MD Work Phone: [facility] 01-09-2015 tetanus toxoid, redu abdelrahman diphtheria toxoid, and acellular pertussis vaccine, adsorbed Sherif Thakur MD Work Phone: [facility] Work Phone: 12-14-2014 influenza, injectabl e, quadrivalent, contains preservative Sherif Thakur MD Work Phone: [facility] 12-13-2013 influenza, seasonal, injectable Sherif Thakur MD Work Phone: [facility] 01-01-2013 influenza virus vaccine, unspecified formulation Sherif Thakur MD Work Phone: [facility] Work Phone: 12-13-2010 influenza virus vaccine, unspecified formulation Sherif Thakur MD Work Phone: [facility] 05-25-2010 tuberculin skin test ; purified protein derivative solution, intradermal Sherif Thakur MD Work Phone: [facility] 01-30-2010 influenza virus vaccine, unspecified formulation Sherif Thakur MD Work Phone: [facility] Work Phone: 05-29-2009 tuberculin skin test ; purified protein derivative solution, intradermal Sherif Thakur MD Work Phone: [facility] Work Phone: 12-27-2008 influenza virus vaccine, unspecified formulation Sherif Thakur MD Work Phone: [facility] 02-03-2008 influenza virus vaccine, unspecified formulation Sherif Thakur MD Work Phone: [facility] 01-06-2007 influenza virus vaccine, unspecified formulation Sherif Thakur MD Work Phone: [facility] Work Phone: 04-11-2006 pneumococcal polysaccharide vaccine, 23 valent Sherif Thakur MD Work Phone: [facility] Work Phone: 01-28-2006 influenza virus vaccine, unspecified formulation Sherif Thakur MD Work Phone: [facility] 11-14-2003 tetanus and diphther ia toxoids, adsorbed, preservative free, for adult use (2 Lf of tetanus toxoid and 2 Lf of diphtheria toxoid) Sherif Thakur MD Work Phone: [facility] Work Phone: NEGATED: Highlighted row has not occurred!12-20-2020 influenza, injectable, quadrivalent, contains preservative Sherif Thakur MD Work Phone: [facility] Work Phone: Payers Date Payer Category Payer Medicaid MEDICAID [facility] MEDICAID [id number] 2015-Present [phone] [address] [place] [address] Medicaid [id number] 2015 Medicaid MEDICAID [facility] MEDICAID [id number] 2015-Present [phone] [address] [place] [address] Medicaid [id number] 2007 Medicare MEDICARE MEDICAR E A AND B [id number] 2007-Present [phone] [place] [address] Medicare [id number] 2007 Medicare MEDICARE MEDICAR E A AND B [id number] 2007-Present [phone] [place] [address] Medicare [id number] 2007 Medicare [id number] 2006 Medicaid [id number] 1982 Unknown [id number] 1982 Unknown [id number] 1982 Unknown [id number] 1982 Unknown [id number] 1982 Unknown [id number] Medicare [id number] Unknown Social History Date Type Detail Facility Assertion Unknown if ever smoked [facility] Work Phone: Start: 07-01-2022 End: 10-23-2022 Lives in snf Lives in snf [facility] Work Phone: Start: 11-21-2010 Tobacco smoking stat us KYIS Never smoked tobacco [facility] Start: 04-23-2021 End: 11-18-2023 Alcohol intake Current non-drinker of alcohol (finding) [facility] Start: 1980 Sex Assigned At Not on file [facility] Start: 05-21-2021 End: 10-29-2021 Exposure to SARS-CoV-2 (event) Not sure [facility] Start: 11-21-2010 Tobacco use and exposure Smokeless tobacco non-user [facility] Work Phone: Start: 07-01-2022 End: 10-23-2022 Tobacco use panel [facility] Work Phone: Adult Depression Screening Assessment 0 [facility] Work Phone: Functional Status Date Assessment Result Facility 12-21-2023 Functional Status Ambulation in [facility] 12-21-2023 Functional Status Standard Safet y ID band on, Visitor at bedside [facility] NEGATED: Highlighted row Functional performance Functional status health issues are not documented Disease [facility] Work Phone: Mental Status Date Assessment Result Facility 12-21-2023 Mental Status Orientation Orie nted x 4 [facility] 12-21-2023 Mental Status [facility] NEGATED: Highlighted row Cognitive function [Interpretation] Cognitive status health issues are not documented Disease [facility] Work Phone: Clinical Notes 01-16-2016 to 12-22-2023 Telephone Encounter - María Avila MA - 12/22/2023 1:49 PM EDTTelephone Encounter - María Avila MA - 12/22/2023 1:49 PM EDTTelephone Encounter - Elsie Kaplan APRN.CNP - 12/22/2023 1:41 PM EDT Note Date & Type Note Facility 12-22-2023 Telephone encounter Note Pharmacist notified. [facility] 12-22-2023 Miscellaneous Notes Pharmacist notified. She is supposed to be taking both short term. Is there a way to get her in earlier then in 10 days? Thank you Elsie Kaplan APRN.CNP Pharmacist @ [facility] calling to clarify orders for Furosemide [...] Annie Brand, RN documented in this encounter [facility] 12-22-2023 Telephone encounter Note She is supposed to be taking both short term. Is there a way to get her in earlier then in 10 days? Thank you Elsie Kaplan APRN.CNP [facility] 12-22-2023 Telephone encounter Note Pharmacist @ [facility] calling to clarify orders for Furosemide [...] Please review and advise. Annie Brand, RN [facility] 12-22-2023 Telephone encounter Note Call returned by Shobha message given as provided. She voices understanding. [facility] 12-22-2023 Miscellaneous Notes Call returned by Shobha message given as provided. She voices understanding. Called and left a voicemail for the [facility] to call back and ask for a nurse to receive the providers message. Teresa Ferrera RN Prescription Resent. Thank you Elsie Kaplan APRN.HOURLY SHIFT [facility]- phoned to report patient was seen in [place] ER on Friday12-21-23, with SOB. ER gave patient IV lasix and sent patient home. Reports patient is having stress in snf with another housemate, which is causing patient anxiety, and this was part of the problem, but patient has also been having problems with edema. This nurse phoned [facility]- caregiver @ [facility] to schedule ER f/u appt, and noted in 12-17-23 encounter, [employer] Mechanic had ordered potassium 20 mg daily, and lasix 40 mg daily, until patient is seen. Asked Shobha how patient is doing on this dose. Shobha reports patient never received the medication, b/c it was sent to the wrong pharmacy, should have been sent to [facility]. Shobha did call pcp to report this (see message below), but never received the medication. Reports even if the medication is sent to [facility] today- they still will not receive it until Fri. Pended medications for [facility]. Please send geovanny. Shobha reports patient is doing fine today- and they are working on the problem with the housemate. Scheduled patient hosp f/u appt for 01-01-24. Shobha from [facility] states there were medications sent for pt yesterday documented in this encounter [facility] 12-22-2023 Telephone encounter Note Called and left a voicemail for the [facility] to call back and ask for a nurse to receive the providers message. Teresa Ferrera RN [facility] 12-22-2023 Telephone encounter Note Prescription Resent. Thank you Elsie Kaplan APRN.HOURLY SHIFT [facility] 12-22-2023 Telephone encounter Note [facility]- phoned to report patient was seen in [place] ER on Friday12-21-23, with SOB. ER gave patient IV lasix and sent patient home. Reports patient is having stress in snf with another housemate, which is causing patient anxiety, and this was part of the problem, but patient has also been having problems with edema. This nurse phoned Shobha- caregiver @ [facility] to schedule ER f/u appt, and noted in 12-17-23 encounter, [employer] Mechanic had ordered potassium 20 mg daily, and lasix 40 mg daily, until patient is seen. Asked Shobha how patient is doing on this dose. Shobha reports patient never received the medication, b/c it was sent to the wrong pharmacy, should have been sent to [facility]. Shobha did call pcp to report this (see message below), but never received the medication. Reports even if the medication is sent to [facility] today- they still will not receive it until Fri. Pended medications for [facility]. Please send geovannynalini Yeager reports patient is doing fine today- and they are working on the problem with the housemate. Scheduled patient hosp f/u appt for 01-01-24. [facility] 12-21-2023 Hospital Discharge instructions Patient Education 12/21/2023 [...] or as directed by your healthcare provider [phone] [employer]. [address] [place] [address]. All rights reserved. This information is not intended as a substitute for professional medical care. Always follow your healthcare professional's instructions. Follow Up Care 12/21/2023 14:01:46 With:please follow up with your test engineering manager Address:Unknown When:2-4 days With:Go to emergency room if symptoms worsen Address:Unknown When:2-4 days With:SHERIF THAKUR MD Address: [address] [place] [address]- When:2-4 days [facility] 12-21-2023 Emergency department Discharge summary Discharge Instructions Thank you for allowing [facility] to assist you with your healthcare needs. [...] other acute concerns. Otherwise follow-up with your test engineering manager as scheduled. No qualifying data available. Post Acute Orders No qualifying data available. You Need to Schedule the Following Appointments Follow Up with please follow up with your test engineering manager When:Within 2-4 days Follow Up with Go to emergency room if symptoms worsen When:Within 2-4 days Follow Up with SHERIF THAKUR MD When:Within 2-4 days Where:[address] [facility] [place] [address]- Allergies Bee Stings Dilantin misc non-codified allergy [...] or as directed by your healthcare provider [phone] [employer]. [address] [place] [address]. All rights reserved. This information is not intended as a substitute for professional medical care. Always follow your healthcare professional's instructions. Additional Information VACCINATE! IT SAVES LIVES! Members of the community who have not yet received the COVID-19 vaccine and would like to receive it can visit one of [facility] vaccine clinics. There are many vaccine clinic locations within the [facility]. For locations and available times, please visit [email or web address] [email or web address] It is important to note that some COVID mobile vaccine clinics are held outdoors and may be canceled in rainy or stormy conditions. To learn more about pediatric vaccinations (ages 5-11), we invite you to visit the [facility] webpage. https://www.[email or web address].org/pag es/5649-Jfrum-Djbmkpmfamj-Frequent mu-Ezffe-Tcogfmgzc.html To learn more about the COVID-19 vaccine, we invite you to visit the CDC website for a list of frequently asked questions. https://www.cdc.gov/coronavirus/-ncov/vaccines/faq.html [facility] Patient Portal Access Instructions: Stay connected with your healthcare team and access your personal medical information anytime with the [employer] Patient Portal. If you would like a full copy of your medical records please contact the [facility] Medical Records Department Friday through Friday between 8a.m. and 4:30p.m. Please follow the directions below to access the portal: 1.Access the email account you provided upon registration to the [facility].2.Look for an invitation email from [facility].3.Open the email and access the invitation link: Accept [facility]itation to [facility]4.Fill in the required perez to create your account. Sign into www.[employer] with your username and password that you [...] you will allow to register on the [employer] Patient Portal for access to your information. You can also access the [employer] Patient Portal on the [employer] cristian. Simply click on Health Records under Health Data and then click on the [employer] logo. HOW TO SAFELY DISPOSE OF PRESCRIPTION [...] Call your local pharmacy or go to http://bit.Sunsea/8T2Ql1o to find one close to you.3.Make use of household items: Use cat litter or old coffee grounds to dispose medications if other options are not available. Mix your drugs with these household products, seal them in an airtight container and throw it into the garbage. Call [facility]: [phone] to be sure your drugs can be [...] aware that I should contact my doctor. 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 Signature: Date/Time: Relationship to Patient: ___ Witness Name/Signature: Date/Time: [facility] 12-21-2023 Note ORIGINAL EXAMINATION: ONE XRAY [...] 12/21/2023 3:28:25 PM Ordering Provider: TABATHA PAGE [facility] 12-21-2023 Note Sinus rhythm Borderline left axis deviation Abnormal R-wave progression, late transition Borderline T abnormalities, anterior leads Baseline wander in lead(s) V4 Electronic Signature: LEONEL PAGEILY DO 12/21/2023 14:45:23 [facility] 12-18-2023 Telephone encounter Note Shobha from [facility] states there were medications sent for pt yesterday [facility] 12-17-2023 Telephone encounter Note New scripts sent Elsie Kaplan APRN.CNP [facility] 12-17-2023 Miscellaneous Notes New scripts sent Elsie Kaplan APRN.CNP [facility] called and notified of below , Clarence voices understanding. Clarence is going to pass this along to snf. Clarence asking if new scripts can be sent to [facility]? Please review and advise, Lillie Marshall RN Patient needs to be seen to evaluate why this is continuing to occur. Can increase lasix to 40mg and the potassium to 20mg both daily until seen. Thank you Elsie Kaplan APRN.CNP Clarence- [facility]- phoned with patient update: Reports pcp increased [...] Please advise and phone Clarence with reply: [phone] documented in this encounter [facility] 12-17-2023 Telephone encounter Note Clarence called and notified of below , Clarence voices understanding. Clarence is going to pass this along to snf. Clarence asking if new scripts can be sent to [facility]? Please review and advise, Lillie Marshall RN [facility] 12-17-2023 Telephone encounter Note Patient needs to be seen to evaluate why this is continuing to occur. Can increase lasix to 40mg and the potassium to 20mg both daily until seen. Thank you Elsie Kaplan APRN.CNP [facility] 12-17-2023 Telephone encounter Note Clarence- [facility]- phoned with patient update: Reports pcp increased [...] Please advise and phone Clarence with reply: [phone] [facility] 12-12-2023 Telephone encounter Note Clarence from [facility] and states that presciption needs to be sent to [facility] and is asking for prescription to be sent to them as well at [phone]. Lillie Marshall RN [facility] 12-12-2023 Miscellaneous Notes Clarence from [facility] and states that presciption needs to be sent to [facility] and is asking for prescription to be sent to them as well at [phone]. Lillie Marshall RN documented in this encounter [facility] 12-12-2023 Telephone encounter Note Clarence notified and voiced his understanding. [facility] 12-12-2023 Miscellaneous Notes Clarence notified and voiced his understanding. Hurt current lasix and potassium dose and give Lasix 40mg daily for the next 3 days and potassium 20meq for the next 3 days as well. Then restart current dose. Follow up if no improvement. Thank you Elsie Kaplan APRN.CNP Clarence from [facility] calling patient weight this morning was 286 pounds. She has increased edema aaron legs, slightly unsteady gait, vitals good, slight shortness of breath with exertion. He said her Furosemide 20 mg one tablet every other day, wearing her compression stockings, using her lymphedema cuffs. Please advise documented in this encounter [facility] 12-12-2023 Telephone encounter Note Hurt current lasix and potassium dose and give Lasix 40mg daily for the next 3 days and potassium 20meq for the next 3 days as well. Then restart current dose. Follow up if no improvement. Thank you Elsie Kaplan APRN.OBED [facility] 12-12-2023 Telephone encounter Note Clarence from [facility] calling patient weight this morning was 286 pounds. She has increased edema aaron legs, slightly unsteady gait, vitals good, slight shortness of breath with exertion. He said her Furosemide 20 mg one tablet every other day, wearing her compression stockings, using her lymphedema cuffs. Please advise [facility] 12-08-2023 Telephone encounter Note Called and updated Clarence voiced understanding. Lacie Reyes LPN December 08, 2023 8:08 AM [facility] 12-08-2023 Miscellaneous Notes Called and updated Clarence voiceluis understanding. Lacie Reyes LPN December 08, 2023 8:08 AM Noted, verbal ok for the same Regards, Sherif Thakur MD Clarence from [facility] calling time for recert senior care services. Patient snf was purchased by another company, nurses will be there more. Patient will be weighed once weekly and log kept to bring to appts. Patient is taking her second antibiotic for cellulitis. Please advise documented in this encounter [facility] 12-05-2023 Telephone encounter Note Noted, verbal ok for the same Regards, Sherif Thakur MD [facility] 12-05-2023 Telephone encounter Note Clarence from [facility] calling time for recert senior care services. Patient snf was purchased by another company, nurses will be there more. Patient will be weighed once weekly and log kept to bring to appts. Patient is taking her second antibiotic for cellulitis. Please advise [facility] 11-24-2023 Telephone encounter Note The patient has [...] ON LEGS AT BEDTIME Pepper Walsh RN [facility] 11-24-2023 Miscellaneous Notes The patient has been [...] Pepper Walsh RN documented in this encounter [facility] 11-18-2023 Note HNO ID: [id number] Author: SHERIF THAKUR MD Service: ? Author [...] (CERTAVITE-ANTIOXIDANT) fluticasone (FLONASE) 50 mcg/actuation nasal spray Wpyed-5-MQS-EPA-Fish Oil 1,000 mg (120 mg-180 mg) cap [...] - COMPRESSION STOCK (more content not included)... [facility] 11-18-2023 History of Present illness Narrative Reason [...] (CERTAVITE-ANTIOXIDANT) fluticasone (FLONASE) 50 mcg/actuation nasal spray Lmgge-4-TAT-EPA-Fish Oil 1,000 mg (120 mg-180 mg) cap [...] Sherif Ganta, MD documented in this encounter [facility] 11-13-2023 Telephone encounter Note Shaunna notified. [facility] 11-13-2023 Miscellaneous Notes Shaunna notified. ----- Message from Elsie Kaplan APRN.CNP sent at 11/13/2023 2:13 PM EDT ----- Please let [facility] know preliminary result of US is negative for blood clot. Thank you Elsie Kaplan APRN.CNP documented in this encounter [facility] 11-13-2023 Telephone encounter Note ----- Message from Elsie Kaplan APRN.CNP sent at 11/13/2023 2:13 PM EDT ----- Please let [facility] know preliminary result of US is negative for blood clot. Thank you Elsie Kaplan APRN.CNP [facility] 11-13-2023 Telephone encounter Note Discussed in appointment today Elsie Kaplan APRN.HOURLY SHIFT [facility] 11-13-2023 Miscellaneous Notes Discussed in appointment today Elsie Kaplan APRN.HOURLY SHIFT [facility] called back with more information. He weighed pt today and she weighed 265. She normally weighs 250 to 255. Per Clarence pt may be going to Urgent Care somewhere, he wasn't sure. Pamela Singh LPN Clarence from [facility] calling 2 weeks ago ER put her [...] seen by PCP. documented in this encounter [facility] 11-13-2023 Instructions Elsie Kaplan APRN.OBED - 11/13/2023 11:25 AM EDT Take Lasix daily with daily potassium supplement for the next 4 days. Hold multivitamin and calcium while on doxycycline. documented in this encounter [facility] 11-13-2023 Note HNO ID: [id number] Author: ELSIE KAPLAN APRN.OBED Service: ? Author [...] then usual and painful. Went immediately to [facility] on 10/29. No US completed to [...] INSTILL 2 SPRAYS IN EACH NOSTRIL DAILY Zfisl-0-TVL-EPA-Fish Oil 1,000 mg (120 mg-180 mg) cap [...] ankle. No ope (more content not included)... [facility] 11-13-2023 History of Present illness Narrative CC: Patient presents with: Recheck: ER follow up, cellulitis completed AIB HPI Jose Abdul is a 43 year old female who presents today for cellulitis Unsure if there was injury or what caused infection but noticed while playing basketball that leg was red, hot, more swollen then usual and painful. Went immediately to [facility] on 10/29. No US completed to [...] INSTILL 2 SPRAYS IN EACH NOSTRIL DAILY Hqulm-3-KBH-EPA-Fish Oil 1,000 mg (120 mg-180 mg) cap [...] Elsie Kaplan APRN.OBED documented in this encounter [facility] 11-12-2023 Telephone encounter Note Clarence called back with more information. He weighed pt today and she weighed 265. She normally weighs 250 to 255. Per Clarence pt may be going to Urgent Care somewhere, he wasn't sure. Pamela Singh LPN [facility] 11-12-2023 Telephone encounter Note Clarence from [facility] calling 2 weeks ago ER put her [...] this week to be seen by PCP. [facility] 10-10-2023 Telephone encounter Note Phoned Clarence and went over notes below from Dr Thakur with understanding. [facility] 10-10-2023 Miscellaneous Notes Phoned [facility] and went over notes below from Dr Thakur with understanding. Agree Sherif Lassiter MD Clarence from [facility] calling to recert orders for custodial for the patient, if PCP would agree. Please advise documented in this encounter [facility] 10-09-2023 Telephone encounter Note Agree Sherif Lassiter MD [facility] 10-09-2023 Telephone encounter Note Noted and agree Sherif Lassiter MD [facility] 10-09-2023 Miscellaneous Notes Noted and agree Sherif Lassiter MD Stephanie with [facility] calling to update PCP that patient has 3cm open area to her right gonzales. Will keep it open to air and does not feel dressing is necessary. Patient is unsure how she acquired it but does pick at skin. HH Nursing will continue to monitor area. No call back needed, if provider agreeable. Pepper Walsh RN . documented in this encounter [facility] 10-09-2023 Telephone encounter Note Stephanie with [facility] calling to update PCP that patient has 3cm open area to her right gonzales. Will keep it open to air and does not feel dressing is necessary. Patient is unsure how she acquired it but does pick at skin. HH Nursing will continue to monitor area. No call back needed, if provider agreeable. Pepper Walsh RN . [facility] 10-09-2023 Telephone encounter Note Clarence from [facility] calling to recert orders for custodial for the patient, if PCP would agree. Please advise [facility] 09-19-2023 Telephone encounter Note Prescription Refill Information [...] Cerna LPN September 19, 2023 12:56 PM [facility] 09-19-2023 Miscellaneous Notes Prescription Refill Information The [...] 2023 12:30 PM documented in this encounter [facility] 09-19-2023 Telephone encounter Note Prescription Refill Information [...] Usha Zuniga September 19, 2023 12:30 PM [facility] 08-22-2023 Telephone encounter Note Prescription Refill Information [...] INSTILL 2 SPRAYS IN EACH NOSTRIL DAILY Shlfj-7-UTM-EPA-Fish Oil 1,000 mg (120 mg-180 mg) cap 31 capsule 10 Sig: Take 1 capsule by mouth once daily. Aaliyah cShofield [facility] August 22, 2023 12:51 PM [facility] Work Phone: 08-22-2023 Miscellaneous Notes Prescription Refill [...] INSTILL 2 SPRAYS IN EACH NOSTRIL DAILY Rjyat-5-VLV-EPA-Fish Oil 1,000 mg (120 mg-180 mg) cap 31 capsule 10 Sig: Take 1 capsule by mouth once daily. Aaliyah Schofield [facility] August 22, 2023 12:51 PM documented in this encounter [facility] 08-11-2023 Telephone encounter Note Pharmacy request denied. Patient needs to contact office for refills. Aaliyah Gonzalez MA [facility] 08-11-2023 Miscellaneous Notes Pharmacy request denied. Patient needs to contact office for refills. Aaliyah Gonzalez MA documented in this encounter [facility] 08-07-2023 Telephone encounter Note Clarence informed of below. ANUPAMA Lira [facility] 08-07-2023 Miscellaneous Notes Clarence informed of below. ANUPAMA Lira [place] Clarence from [facility] calls to see if provider will continue to follow orders for senior care? Lillie Marshall RN documented in this encounter [facility] 08-07-2023 Telephone encounter Note OK [facility] 08-07-2023 Telephone encounter Note Clarence from [facility] calls to see if provider will continue to follow orders for senior care? Lillie Marshall RN [facility] 08-06-2023 Telephone encounter Note Prescription Refill Information [...] Henderson LPN August 06, 2023 4:16 PM [facility] 08-06-2023 Miscellaneous Notes Prescription Refill Information The [...] you. Monica Grady. documented in this encounter [facility] 08-06-2023 Telephone encounter Note Patient has been [...] care: Please advise. Thank you. Monica Grady. [facility] 07-21-2023 Telephone encounter Note Patient has been [...] Please advise. Thank you. Aaliyah Gonzalez MA. [facility] 07-21-2023 Miscellaneous Notes Patient has been identified [...] patient. Usha Zuniga documented in this encounter [facility] 07-21-2023 Telephone encounter Note Patient has been identified by name and date of : Yes Requested Prescriptions Pending Prescriptions Disp Refills levothyroxine (SYNTHROID) 100 mcg tablet 31 tablet 10 Sig: take one tablet by mouth daily one hour before breakfast RX INSTRUCTIONS: Patient aware RX will be sent to pharmacy. No need to notify patient. Usha Zuniga [facility] 07-08-2023 Telephone encounter Note Patient has been identified by name and date of : No Patient phones for refill(s): Requested Prescriptions Pending Prescriptions Disp Refills DULERA 100-5 mcg/actuation inhaler [Pharmacy Med Name: Dulera 100-5 MCG/ACT Aerosol] 13 g 10 Sig: INHALE 2 PUFFS BY MOUTH TWICE DAILY ( INSTRUCTED) nystatin (NYAMYC) powder [Pharmacy Med Name: Nyamyc [id number] UNIT/GM Powder] 60 g 10 Sig: APPLY TOPICALLY TWICE DAILY TO AFFECTED AREA(S) ON ABDOMINAL FOLDS Date of last office visit in primary care: 03/19/2023 Date of next office visit in primary care: 03/22/2024 Please advise. Thank you. Pascale Henderson LPN. [facility] 07-08-2023 Miscellaneous Notes Patient has been identified by name and date of : No Patient phones for refill(s): Requested Prescriptions Pending Prescriptions Disp Refills DULERA 100-5 mcg/actuation inhaler [Pharmacy Med Name: Dulera 100-5 MCG/ACT Aerosol] 13 g 10 Sig: INHALE 2 PUFFS BY MOUTH TWICE DAILY ( INSTRUCTED) nystatin (NYAMYC) powder [Pharmacy Med Name: Nyamyc [id number] UNIT/GM Powder] 60 g 10 Sig: APPLY TOPICALLY TWICE DAILY TO AFFECTED AREA(S) ON ABDOMINAL FOLDS Date of last office visit in primary care: 03/19/2023 Date of next office visit in primary care: 03/22/2024 Please advise. Thank you. Pascale Henderson LPN. documented in this encounter [facility] 07-08-2023 Telephone encounter Note Patient has been [...] Please advise. Thank you. Pascale Henderson LPN. [facility] 07-08-2023 Miscellaneous Notes Patient has been identified [...] Pascale Henderson LPN. documented in this encounter [facility] 06-13-2023 Miscellaneous Notes Patient has been identified [...] Pascale Henderson LPN. documented in this encounter [facility] 06-02-2023 Miscellaneous Notes Left message for return call. Tried calling supervisor vat house, call was dropped. Dulera ordered in equivalent dosing to symbicort. Call snf to give below information and change in [...] call to a nurse. Jose Abdul (Griffith: [id number]) - [id number] Budesonide-Formoterol Fumarate 160-4.5MCG/ACT aerosol Status: PA Request Created: March 13, 2023 [id number] Sent: May 26, 2023 Prior Authorization Documentation Prior authorization requested for the following medication: Medication: Symbicort Provider: Teresa Yeung Insurance Company Name: Medicare A/B and Medicaid secondary Insurance Company Phone number: Not listed Patient ID number: Medicare: [id number] Medicaid: [id number] Pharmacy Name: [facility] Telephone number: [phone]. Caregiver calls to request. Reports pharmacy is also faxing request. Eulalia Laureano RN documented in this encounter [facility] 05-30-2023 Miscellaneous Notes Faxed to [facility] as requested. Patient verified by name and . Her care provider, Shaunna Cuenca calling to request a mammogram screening order be faxed to [facility] to complete. She can be reached at [phone] with any questions. Please review and advise. documented in this encounter [facility] 03-19-2023 Note HNO ID: [id number] Author: TERESA YEUNG APRN.HOURLY SHIFT Service: ? Author Type: Nurse Practitioner Type: [...] currently lives in a home managed by [place] and is accompanied by a child care attendant today. 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 Other Providers: Podiatry, Dr. Lyubov Fontenot with rug sample beveler with [place] Depression Screen Q1: Over the past two weeks, have you felt down, depressed or hopeless? No Q2: Over the past two weeks, have you felt little interest or pleasure in doing things? 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 (more content not included)... [facility] 02-28-2023 Note HNO ID: [id number] Author: Teresa Yeung APRN.HOURLY SHIFT Service: ? Author Type: Nurse Practitioner Type: Progress Notes Filed: 02/28/2023 2:10 PM Note Text: SUBJECTIVE Jose Abdul is a 42 year old female here today for acute concern. Chief Complaint Patient presents with: irriatated spot near vulva HPI Jose Abdul is a 42 year old female. Here today, accompanied by a child care attendant. Concerns of an irritated spot near her [...] BY MOUTH EVERY OTHER DAY FOR LYMPHEDEMA pkcahoa-aqmmsnjrb-ydtowsc D3 (OYSTER SHELL CALCIUM-VITAMIN D) 500 mg-5 [...] INSTILL 2 SPRAYS IN EACH NOSTRIL DAILY Trlgo-2-UJN-EPA-Fish Oil 1,000 mg (120 mg-180 mg) cap [...] Hypogonadism (Hcc) - 12/07/2015 Bmi 45.0-49.9, Adult ([facility]) - 02/09/2015 Venous Insufficiency (Chronic) (Peripheral) - 12/14/2014 Acquired Hypothyroidism - 12/14/2014 Obstructive Sleep Apnea Syndrome - 12/14/2014 Comment: Uses her cpap at night daily Vitamin D Deficiency - 11/05/2011 Mild Intermittent Asthma Without Complication Comment: Other Lung Diseases NEC Allergic Rhinitis Comment: Allergic rhinitis 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 [facility] 01-20-2023 Miscellaneous Notes Patient has been identified by name and date of : Yes Patient phones for refill(s): Requested Prescriptions Pending Prescriptions Disp Refills birztzy-wnsjfzfrp-vejkpwo D3 (OYSTER SHELL CALCIUM-VITAMIN D) 500 mg-5 [...] Yes Requested Prescriptions Pending Prescriptions Disp Refills lokdakz-bzxfdasmp-bkfacqx D3 (OYSTER SHELL CALCIUM-VITAMIN D) 500 mg-5 mcg (200 unit) per tablet 62 tablet 5 Sig: Take 1 tablet by mouth two times a day with meals. RX INSTRUCTIONS: Patient aware RX will be sent to pharmacy. No need to notify patient. Aaliyah Schofield Pss documented in this encounter [facility] 12-12-2022 Miscellaneous Notes Patient has been identified [...] advise. Mima Royal documented in this encounter [facility] 12-05-2022 History of Present illness Narrative Food/Nutrition related history[facility] GeneticsNutrition Assessment in PWS ClinicDate of Visit: [...] HISTORY AND INTAKE:Pt and caregiver (Anali - [employer] Police Lieutenant) present in out-patient PWS clinic for a scheduled f/u clinic visit. 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 [facility] sends packed meals home with her.Food Seeking [...] 42yo female with know PWS. Pt has lvtxtr7dfy since last year. May be worth exploring [...] and report to dietitian- Send copies of [facility] Food Menus and pts actual % of [...] to follow and reassess as needed or wxmgfedyeFiwk-yg-Eesh Time and Units: Time: 30 minutes/Units: 2Kcarmel Ly, MS, RD, LDN l Sr. Genetics Dietitian l Clinical Dietitian, Advance Practice l l [facility] HospitalGen[facility] Dietitian's Office: ; ; Email: [email or web address] tics/Scheduling: ; ; Urgent Doctor On-Call: [phone] Tequila Vinson. [address] [id number] Regulator Mechanic Provider: Marisol Mohamud MD. [facility] [address] Work Phone: 10-25-2022 Miscellaneous Notes In review of chart, patient was seen in office 10/23/22 by Keren Kaplan. Closing encounter as nothing further needed at this time. ANUPAMA Lira Left message for return call Please see how patient is doing? If asymptomatic, can just continue with every other day. Thank you Elsie Kaplan APRN.HOURLY SHIFT Anali calling back to check status. Routing to consulting actuary due to medication issues. Pamela Singh LPN Staff member eneida Martell, dose of Lasix 20mg & Potassium 10 mEq today. Patient is to get medication every other day, it is one day early. Patient went to Workshop today, should be home within next 30 minutes, [facility] has not receive a call re: Patient today. Please review & advise. Mackenzie Elmore LPN documented in this encounter [facility] 10-23-2022 History of Present illness Narrative CC: [...] INSTILL 2 SPRAYS IN EACH NOSTRIL DAILY Bbsdw-3-ZSO-EPA-Fish Oil 1,000 mg (120 mg-180 mg) cap [...] TO AFFECTED AREA(S) ON LEGS AT BEDTIME joesfov-azcnukytu-rlegctz D3 (OYSTER SHELL CALCIUM-VITAMIN D) 500 mg(1,250mg) [...] Elsie Kaplan APRN.CNP documented in this encounter [facility] 10-23-2022 Miscellaneous Notes Patient has been identified [...] Candelaria Ball LPN documented in this encounter [facility] 10-10-2022 Miscellaneous Notes Clarence Hurtado with [facility] in [place] called in to verify that Pt was still under providers care. documented in this encounter [facility] 08-26-2022 Miscellaneous Notes Last office visit: 07/01/22 [...] patient. Usha Zuniga documented in this encounter [facility] 08-07-2022 Miscellaneous Notes Patient has been identified by name and date of : No Patient phones for refill(s): Requested Prescriptions Pending Prescriptions Disp Refills fluticasone (FLONASE) 50 mcg/actuation nasal spray [Pharmacy Med Name: Fluticasone Propionate 50 MCG/ACT Suspension] 16 g 10 Sig: INSTILL 2 SPRAYS IN EACH NOSTRIL DAILY Xqhub-8-NWG-EPA-Fish Oil 1,000 mg (120 mg-180 mg) cap [Pharmacy Med Name: Weir-3 1000 MG Capsule] 31 capsule 10 Sig: [...] Pascale Lorenzo LPN documented in this encounter [facility] 07-18-2022 Miscellaneous Notes Patient has been identified [...] advise. Pepper Royal documented in this encounter [facility] 06-06-2022 Miscellaneous Notes Medication or Treatment Administration Consent form signed by Dr. Thakur. Joniacatscott Briones the supervisor vat house notified form is ready for pickup. Form taken to Medical records. documented in this encounter [facility] 06-04-2022 Miscellaneous Notes Patient has been identified [...] Mackenzie Elmore LPN documented in this encounter [facility] 05-16-2022 Miscellaneous Notes Last Office Visit: 05/02/2022 [...] Last Labs: 12/13/2021 documented in this encounter [facility] 05-02-2022 History of Present illness Narrative Reason [...] a duplex near by her mother in [place] a couple years ago and is actually [...] cream ammonium lactate (LAC-HYDRIN) 12 % cream vstfheh-qdggezjdc-hjowgff D3 (OYSTER SHELL CALCIUM-VITAMIN D) 500 mg(1,250mg) [...] diet of 1000 mg/day for under 50, 8948-3233 mg/day for 50+ 2. Hypothalamic hypogonadism (HCC) [...] Sherif Thakur MD documented in this encounter [facility] 03-21-2022 History of Present illness Narrative CC: [...] ON LEGS AT BEDTIME^Disp: 280 g^Rfl: 10 zirskki-wyeixkhpc-fyzxbmu D3 (OYSTER SHELL CALCIUM-VITAMIN D) 500 mg(1,250mg) [...] Elsie Kaplan APRN.OBED documented in this encounter [facility] 02-05-2022 Miscellaneous Notes Patient has been identified [...] Pascale Lorenzo LPN documented in this encounter [facility] 01-29-2022 History of Present illness Narrative Reason [...] cream ammonium lactate (LAC-HYDRIN) 12 % cream shslqtf-phblnlqwq-fwynehs D3 (OYSTER SHELL CALCIUM-VITAMIN D) 500 mg(1,250mg) [...] Sherif Thakur MD documented in this encounter [facility] 01-23-2022 Miscellaneous Notes Taken to medical records. Anali notified. Regan Neville Ma Patient caregiver Anali calling to check status of request for handicap placard rx renewal rx. Patient child care attendant Anali calling to check status of request. Anali (supervisor vat house) calls to request 2 handicap placards for patient. Anali will picker/puller in medical records if provider agrees. Pended. Eulalia Laureano, RN documented in this encounter [facility] 12-13-2021 Miscellaneous Notes Clarence Hurtado with [facility] calling to confirm PCP for patient. Information confirmed. Pepper Walsh RN documented in this encounter [facility] 11-29-2021 Miscellaneous Notes Anali, supervisor vat house notified. Talked to genetecist carrington - Please [...] speak with PCP. Please call him at [phone] between 12-3 PM today. documented in this encounter [facility] 11-08-2021 History of Present illness Narrative PWS Roldan is a 42 year old female who has presented to the PWS multidisciplinary clinic at [facility]. She is accompanied by her supervisor vat house, Anali. History was obtained by the patient, [...] in the past.PCP: Dr. Sherif Thakur at [facility], fax number [phone], is currently seeing an CHIEF I DISPATCHER named Older at this officeInterval History: She [...] and Friday, where she works out (e.g., [employer], [employer]) half a day. She just received a [...] records - they may be accessible on [employer], and will hopefully be more available on [employer].- Seeing Gynecology for OCP (for bone health). [...] per Anali- We plan to call the tactical response group officer Gayla to discuss her care, and will recommend the patient's mother come with her to future visits as well.ROS negative if not mentioned above, pertinent positives in HPI. [facility] Work Phone: 10-29-2021 History of Present [...] cream ammonium lactate (LAC-HYDRIN) 12 % cream piehzlc-rpzrzjxrl-rojsksy D3 (OYSTER SHELL CALCIUM-VITAMIN D) 500 mg(1,250mg) [...] Sherif Thakur MD documented in this encounter [facility] 09-20-2021 Miscellaneous Notes Patient has been identified by name and date of : Yes Patient phones for refill(s): Pending Prescriptions Disp Refills POTASSIUM CHLORIDE ER 10 MEQ TABLET,EXTENDED RELEASE 45 tablet 2 Sig: Take one tablet on days when you are taking lasix. NAIMA: No Refused Prescriptions Disp Refills Fish Oil-Weir-3 Fatty Acids (FISH OIL) 340-1,000 mg cap 31 capsule 10 Sig: Take 1 capsule by mouth once daily. NAIMA: No levothyroxine (SYNTHROID) 100 mcg tablet 31 tablet 10 NAIMA: No Date of last office visit in primary care: 06/28/21 Please advise. Thank you. Alexia Prater LPN documented in this encounter [facility] 09-04-2021 Miscellaneous Notes NOV 10/29/21 POLA 08/20/21 Patient electronically sent a request for the following prescription(s) Pending Prescriptions Disp Refills LEVOTHYROXINE 100 MCG TABLET 31 tablet 10 Sig: TAKE ONE TABLET BY MOUTH DAILY ONE HOUR BEFORE BREAKFAST NAIMA: Yes Patient aware RX will be sent to pharmacy. No need to notify patient. Please review. Alexia Lin MA documented in this encounter [facility] 08-31-2021 Miscellaneous Notes Leyda notified. Ok to continue with therapy. Thank you Elsie Kaplan APRN.OBED Leyda calling to check on status of request. Advised provider out of office Th and Fri. Routing to CHIEF I DISPATCHER. Yazan Franco LPN RODRÍGUEZ Crabtree @ [facility] calling to let PCP know patient was recertified for continued nursing visits 1 x/week for nine weeks for weekly skin checks. Asking for verbal saying Dr. Thakur agrees and will continue to follow orders. #[phone]. Annie Brand RN documented in this encounter [facility] 08-20-2021 History of Present illness Narrative Images [...] PUFFS BY MOUTH TWICE DAILY ( INSTRUCTED) *[facility] [employer] VELPEN Lymphedema massage therapy IRAIDA 0.35 mg tablet [...] TO AFFECTED AREA(S) ON LEGS AT BEDTIME gkirlhm-inkzfalrp-wqdlgts D3 (OYSTER SHELL CALCIUM-VITAMIN D) 500 mg(1,250mg) [...] Rae Kaplan APRN.CNP documented in this encounter [facility] 08-20-2021 Instructions Rae Kaplan APRN.CNP - 08/20/2021 3:59 PM EDT Keep area(s) clean and dry. Apply Lotrisone cream twice a day If any unusual pain, swelling, red streaks, pus, fever or other signs of worsening infection, call immediately. documented in this encounter [facility] 08-14-2021 Miscellaneous Notes NOV 08/17/21 POLA 06/28/21 [...] Alexia Lin MA documented in this encounter [facility] 07-06-2021 Miscellaneous Notes Order has been faxed. Pascale Lorenzo LPN Yes Vikki MAZA from [facility] calls and is asking if provider will write an order for Lymphedema massage therapy treatment? If agreeable please fax order to either: Or Lillie Marshall RN documented in this encounter [facility] 06-28-2021 Miscellaneous Notes Patient is having home Physical Therapy evaluate her We will get back with details if that changes Thanks for reaching out Tong in Physical Therapy asking for patient diagnosis for Physical Therapy order. He is also asking for clarification of what specifically PT is to evaluate. Order does not specify area of concern. Annie Brand RN documented in this encounter [facility] 06-28-2021 History of Present illness Narrative Reason [...] cream ammonium lactate (LAC-HYDRIN) 12 % cream zskfpvm-qntfkekcq-bkbufrx D3 (OYSTER SHELL CALCIUM-VITAMIN D) 500 mg(1,250mg) -200 unit per tablet potassium chloride (K-TAB) 10 mEq tablet CERTAVITE-ANTIOXIDANT levothyroxine (SYNTHROID) 100 mcg tablet Gauze Bandage 2 X 2 bndg Desogestrel-Ethinyl Estradiol (APRI) 0.15-0.03 mg per tablet fluticasone (FLONASE) 50 mcg/actuation nasal spray Fish Oil-Weir-3 Fatty Acids (FISH OIL) 340-1,000 mg cap [...] Sherif Thakur MD documented in this encounter [facility] 06-22-2021 Miscellaneous Notes Brianna notified and verbalized understanding. Kristie Khan Ma Agree with below. Jacquelyn Allen APRN.CNP Brianna Moise with [facility] called and states they were contacted to have nursing come into the snf for pt weekly. This will be for skin issues and weight issues. Pt was identified with name and date of . Requesting the followin. verbal order to start care in the home weekly. Okay to leave a message 2. fax last OV for PCP - 04/23/21 to [phone]. This has been faxed. Pamela Singh LPN documented in this encounter [facility] 06-14-2021 Miscellaneous Notes Ready for picker/puller in Medical Records. Forms received and placed on PCP desk for review. Has this paperwork been received? Thank you Elsie Kaplan APRN.HOURLY SHIFT Pt's caregiver Anali asking if the paperwork that she dropped off last week is completed yet? For is for pt to use her epi pen while at the workshop. Mima Parson LPN documented in this encounter [facility] 06-06-2021 Miscellaneous Notes plant senior manager notified ----- Message from Sherif Thakur MD sent at 06/01/2021 5:32 PM EDT ----- Hip joint and synovium are normal documented in this encounter [facility] 02-15-2021 Note HNO ID: [id number] Author: Ricki Hirsch MD Service: ? Author [...] needed basis. This note was generated with [employer] dictation software. It may contain incorrect words, spelling, and punctuation and that were not noted in review of the chart prior to signing. I spent 15 minutes in the visit, with more than 50% of the total pixc-kw-fmbr time of the visit in counseling / coordination of care. Recommendations: #1 continue lymphedema pumping #2 continue lymphedema wraps #3 check with primary care physician and if no contraindications begin enteric-coated baby aspirin on a daily basis. [facility] 01-18-2021 Note HNO ID: [id number] Author: Ricki Hirsch MD Service: ? Author [...] a month. This note was generated with [employer] dictation software. It may contain incorrect words, spelling, and punctuation and that were not noted in review of the chart prior to signing. I spent 15 minutes in the visit, with more than 50% of the total ccuy-jq-xzqr time of the visit in counseling / coordination of care. [facility] 01-16-2016 History of Past i llness Narrative Problem Noted Date Resolved Date Venous stasis ulcers 01/16/2016 06/17/2016 BMI 40.0-44.9, adult 12/14/2014 02/09/2015 BMI 50.0-59.9, adult 10/11/2013 12/14/2014 Other lymphedema 04/26/2013 12/14/2014 Mental status change 01/08/2013 12/13/2013 Overview: Transient mental status change; [facility], 12/09/12 Amenorrhea 06/18/2011 12/07/2015 Open wound [...] of this encounter (statuses as of 06/06/2021) [facility] History of Past illness Narrative* Problem Noted Date Resolved Date Venous stasis ulcers 01/16/2016 06/17/2016 BMI 40.0-44.9, adult 12/14/2014 02/09/2015 BMI 50.0-59.9, adult 10/11/2013 12/14/2014 Other lymphedema 04/26/2013 12/14/2014 Mental status change 01/08/2013 12/13/2013 Overview: Transient mental status change; [facility], 12/09/12 Amenorrhea 06/18/2011 12/07/2015 Open wound [...] of this encounter (statuses as of 06/14/2021) [facility] History of Past illness Narrative* Problem Noted Date Resolved Date Venous stasis ulcers 01/16/2016 06/17/2016 BMI 40.0-44.9, adult 12/14/2014 02/09/2015 BMI 50.0-59.9, adult 10/11/2013 12/14/2014 Other lymphedema 04/26/2013 12/14/2014 Mental status change 01/08/2013 12/13/2013 Overview: Transient mental status change; [facility], 12/09/12 Amenorrhea 06/18/2011 12/07/2015 Open wound [...] of this encounter (statuses as of 06/22/2021) [facility] History of Past illness Narrative* Problem Noted Date Resolved Date Venous stasis ulcers 01/16/2016 06/17/2016 BMI 40.0-44.9, adult 12/14/2014 02/09/2015 BMI 50.0-59.9, adult 10/11/2013 12/14/2014 Other lymphedema 04/26/2013 12/14/2014 Mental status change 01/08/2013 12/13/2013 Overview: Transient mental status change; [facility], 12/09/12 Amenorrhea 06/18/2011 12/07/2015 Open wound [...] of this encounter (statuses as of 06/28/2021) [facility] History of Past illness Narrative* Problem Noted Date Resolved Date Venous stasis ulcers 01/16/2016 06/17/2016 BMI 40.0-44.9, adult 12/14/2014 02/09/2015 BMI 50.0-59.9, adult 10/11/2013 12/14/2014 Other lymphedema 04/26/2013 12/14/2014 Mental status change 01/08/2013 12/13/2013 Overview: Transient mental status change; [facility], 12/09/12 Amenorrhea 06/18/2011 12/07/2015 Open wound [...] of this encounter (statuses as of 06/28/2021) [facility] History of Past illness Narrative* Problem Noted Date Resolved Date Venous stasis ulcers 01/16/2016 06/17/2016 BMI 40.0-44.9, adult 12/14/2014 02/09/2015 BMI 50.0-59.9, adult 10/11/2013 12/14/2014 Other lymphedema 04/26/2013 12/14/2014 Mental status change 01/08/2013 12/13/2013 Overview: Transient mental status change; [facility], 12/09/12 Amenorrhea 06/18/2011 12/07/2015 Open wound [...] of this encounter (statuses as of 07/06/2021) [facility] History of Past illness Narrative* Problem Noted Date Resolved Date Venous stasis ulcers 01/16/2016 06/17/2016 BMI 40.0-44.9, adult 12/14/2014 02/09/2015 BMI 50.0-59.9, adult 10/11/2013 12/14/2014 Other lymphedema 04/26/2013 12/14/2014 Mental status change 01/08/2013 12/13/2013 Overview: Transient mental status change; [facility], 12/09/12 Amenorrhea 06/18/2011 12/07/2015 Open wound [...] of this encounter (statuses as of 08/15/2021) [facility] History of Past illness Narrative* Problem Noted Date Resolved Date Venous stasis ulcers 01/16/2016 06/17/2016 BMI 40.0-44.9, adult 12/14/2014 02/09/2015 BMI 50.0-59.9, adult 10/11/2013 12/14/2014 Other lymphedema 04/26/2013 12/14/2014 Mental status change 01/08/2013 12/13/2013 Overview: Transient mental status change; [facility], 12/09/12 Amenorrhea 06/18/2011 12/07/2015 Open wound [...] of this encounter (statuses as of 08/20/2021) [facility] History of Past illness Narrative* Problem Noted Date Resolved Date Venous stasis ulcers 01/16/2016 06/17/2016 BMI 40.0-44.9, adult 12/14/2014 02/09/2015 BMI 50.0-59.9, adult 10/11/2013 12/14/2014 Other lymphedema 04/26/2013 12/14/2014 Mental status change 01/08/2013 12/13/2013 Overview: Transient mental status change; [facility], 12/09/12 Amenorrhea 06/18/2011 12/07/2015 Open wound [...] of this encounter (statuses as of 08/31/2021) [facility] History of Past illness Narrative* Problem Noted Date Resolved Date Venous stasis ulcers 01/16/2016 06/17/2016 BMI 40.0-44.9, adult 12/14/2014 02/09/2015 BMI 50.0-59.9, adult 10/11/2013 12/14/2014 Other lymphedema 04/26/2013 12/14/2014 Mental status change 01/08/2013 12/13/2013 Overview: Transient mental status change; [facility], 12/09/12 Amenorrhea 06/18/2011 12/07/2015 Open wound [...] of this encounter (statuses as of 09/05/2021) [facility] History of Past illness Narrative* Problem Noted Date Resolved Date Venous stasis ulcers 01/16/2016 06/17/2016 BMI 40.0-44.9, adult 12/14/2014 02/09/2015 BMI 50.0-59.9, adult 10/11/2013 12/14/2014 Other lymphedema 04/26/2013 12/14/2014 Mental status change 01/08/2013 12/13/2013 Overview: Transient mental status change; [facility], 12/09/12 Amenorrhea 06/18/2011 12/07/2015 Open wound [...] of this encounter (statuses as of 09/20/2021) [facility] History of Past illness Narrative* Problem Noted Date Resolved Date Venous stasis ulcers 01/16/2016 06/17/2016 BMI 40.0-44.9, adult 12/14/2014 02/09/2015 BMI 50.0-59.9, adult 10/11/2013 12/14/2014 Other lymphedema 04/26/2013 12/14/2014 Mental status change 01/08/2013 12/13/2013 Overview: Transient mental status change; [facility], 12/09/12 Amenorrhea 06/18/2011 12/07/2015 Open wound [...] of this encounter (statuses as of 10/29/2021) [facility] History of Past illness Narrative* Problem Noted Date Resolved Date Venous stasis ulcers 01/16/2016 06/17/2016 BMI 40.0-44.9, adult 12/14/2014 02/09/2015 BMI 50.0-59.9, adult 10/11/2013 12/14/2014 Other lymphedema 04/26/2013 12/14/2014 Mental status change 01/08/2013 12/13/2013 Overview: Transient mental status change; [facility], 12/09/12 Amenorrhea 06/18/2011 12/07/2015 Open wound [...] of this encounter (statuses as of 11/29/2021) [facility] History of Past illness Narrative* Problem Noted Date Resolved Date Venous stasis ulcers 01/16/2016 06/17/2016 BMI 40.0-44.9, adult 12/14/2014 02/09/2015 BMI 50.0-59.9, adult 10/11/2013 12/14/2014 Other lymphedema 04/26/2013 12/14/2014 Mental status change 01/08/2013 12/13/2013 Overview: Transient mental status change; [facility], 12/09/12 Amenorrhea 06/18/2011 12/07/2015 Open wound [...] of this encounter (statuses as of 12/13/2021) [facility] History of Past illness Narrative* Problem Noted Date Resolved Date Venous stasis ulcers 01/16/2016 06/17/2016 BMI 40.0-44.9, adult 12/14/2014 02/09/2015 BMI 50.0-59.9, adult 10/11/2013 12/14/2014 Other lymphedema 04/26/2013 12/14/2014 Mental status change 01/08/2013 12/13/2013 Overview: Transient mental status change; [facility], 12/09/12 Amenorrhea 06/18/2011 12/07/2015 Open wound [...] of this encounter (statuses as of 01/23/2022) [facility] History of Past illness Narrative* Problem Noted Date Resolved Date Venous stasis ulcers 01/16/2016 06/17/2016 BMI 40.0-44.9, adult 12/14/2014 02/09/2015 BMI 50.0-59.9, adult 10/11/2013 12/14/2014 Other lymphedema 04/26/2013 12/14/2014 Mental status change 01/08/2013 12/13/2013 Overview: Transient mental status change; [facility], 12/09/12 Amenorrhea 06/18/2011 12/07/2015 Open wound [...] of this encounter (statuses as of 01/29/2022) [facility] History of Past illness Narrative* Problem Noted Date Resolved Date Venous stasis ulcers 01/16/2016 06/17/2016 BMI 40.0-44.9, adult 12/14/2014 02/09/2015 BMI 50.0-59.9, adult 10/11/2013 12/14/2014 Other lymphedema 04/26/2013 12/14/2014 Mental status change 01/08/2013 12/13/2013 Overview: Transient mental status change; [facility], 12/09/12 Amenorrhea 06/18/2011 12/07/2015 Open wound [...] of this encounter (statuses as of 02/06/2022) [facility] History of Past illness Narrative* Problem Noted Date Resolved Date Venous stasis ulcers 01/16/2016 06/17/2016 BMI 40.0-44.9, adult 12/14/2014 02/09/2015 BMI 50.0-59.9, adult 10/11/2013 12/14/2014 Other lymphedema 04/26/2013 12/14/2014 Mental status change 01/08/2013 12/13/2013 Overview: Transient mental status change; [facility], 12/09/12 Amenorrhea 06/18/2011 12/07/2015 Open wound [...] of this encounter (statuses as of 03/22/2022) [facility] History of Past illness Narrative* Problem Noted Date Resolved Date Venous stasis ulcers 01/16/2016 06/17/2016 BMI 40.0-44.9, adult 12/14/2014 02/09/2015 BMI 50.0-59.9, adult 10/11/2013 12/14/2014 Other lymphedema 04/26/2013 12/14/2014 Mental status change 01/08/2013 12/13/2013 Overview: Transient mental status change; [facility], 12/09/12 Amenorrhea 06/18/2011 12/07/2015 Open wound [...] of this encounter (statuses as of 05/02/2022) [facility] History of Past illness Narrative* Problem Noted Date Resolved Date Venous stasis ulcers 01/16/2016 06/17/2016 BMI 40.0-44.9, adult 12/14/2014 02/09/2015 BMI 50.0-59.9, adult 10/11/2013 12/14/2014 Other lymphedema 04/26/2013 12/14/2014 Mental status change 01/08/2013 12/13/2013 Overview: Transient mental status change; [facility], 12/09/12 Amenorrhea 06/18/2011 12/07/2015 Open wound [...] of this encounter (statuses as of 05/17/2022) [facility] History of Past illness Narrative* Problem Noted Date Resolved Date Venous stasis ulcers 01/16/2016 06/17/2016 BMI 40.0-44.9, adult 12/14/2014 02/09/2015 BMI 50.0-59.9, adult 10/11/2013 12/14/2014 Other lymphedema 04/26/2013 12/14/2014 Mental status change 01/08/2013 12/13/2013 Overview: Transient mental status change; [facility], 12/09/12 Amenorrhea 06/18/2011 12/07/2015 Open wound [...] of this encounter (statuses as of 06/06/2022) [facility] History of Past illness Narrative* Problem Noted Date Resolved Date Venous stasis ulcers 01/16/2016 06/17/2016 BMI 40.0-44.9, adult 12/14/2014 02/09/2015 BMI 50.0-59.9, adult 10/11/2013 12/14/2014 Other lymphedema 04/26/2013 12/14/2014 Mental status change 01/08/2013 12/13/2013 Overview: Transient mental status change; [facility], 12/09/12 Amenorrhea 06/18/2011 12/07/2015 Open wound [...] of this encounter (statuses as of 07/18/2022) [facility] History of Past illness Narrative* Problem Noted Date Resolved Date Venous stasis ulcers 01/16/2016 06/17/2016 BMI 40.0-44.9, adult 12/14/2014 02/09/2015 BMI 50.0-59.9, adult 10/11/2013 12/14/2014 Other lymphedema 04/26/2013 12/14/2014 Mental status change 01/08/2013 12/13/2013 Overview: Transient mental status change; [facility], 12/09/12 Amenorrhea 06/18/2011 12/07/2015 Open wound [...] of this encounter (statuses as of 08/08/2022) [facility] History of Past illness Narrative* Problem Noted Date Resolved Date Venous stasis ulcers 01/16/2016 06/17/2016 BMI 40.0-44.9, adult 12/14/2014 02/09/2015 BMI 50.0-59.9, adult 10/11/2013 12/14/2014 Other lymphedema 04/26/2013 12/14/2014 Mental status change 01/08/2013 12/13/2013 Overview: Transient mental status change; [facility], 12/09/12 Amenorrhea 06/18/2011 12/07/2015 Open wound [...] of this encounter (statuses as of 08/23/2022) [facility] History of Past illness Narrative* Problem Noted Date Resolved Date Venous stasis ulcers 01/16/2016 06/17/2016 BMI 40.0-44.9, adult 12/14/2014 02/09/2015 BMI 50.0-59.9, adult 10/11/2013 12/14/2014 Other lymphedema 04/26/2013 12/14/2014 Mental status change 01/08/2013 12/13/2013 Overview: Transient mental status change; [facility], 12/09/12 Amenorrhea 06/18/2011 12/07/2015 Open wound [...] of this encounter (statuses as of 08/27/2022) [facility] History of Past illness Narrative* Problem Noted Date Diagnosed Date Resolved Date Venous stasis ulcers 01/16/2016 017 BMI 40.0-44.9, adult 12/14/2014 015 BMI 50.0-59.9, adult 10/11/2013 015 Other lymphedema 04/26/2013 12/14/2014 Mental status change 01/08/2013 014 Overview: Transient mental status change; [facility], 12/09/12 Amenorrhea 06/18/2011 12/07/2015 Open wound [...] of this encounter (statuses as of 10/10/2022) [facility] History of Past illness Narrative* Problem Noted Date Diagnosed Date Resolved Date Venous stasis ulcers 01/16/2016 017 BMI 40.0-44.9, adult 12/14/2014 015 BMI 50.0-59.9, adult 10/11/2013 015 Other lymphedema 04/26/2013 12/14/2014 Mental status change 01/08/2013 014 Overview: Transient mental status change; [facility], 12/09/12 Amenorrhea 06/18/2011 12/07/2015 Open wound [...] of this encounter (statuses as of 10/11/2022) [facility] History of Past illness Narrative* Problem Noted Date Diagnosed Date Resolved Date Venous stasis ulcers 01/16/2016 017 BMI 40.0-44.9, adult 12/14/2014 015 BMI 50.0-59.9, adult 10/11/2013 015 Other lymphedema 04/26/2013 12/14/2014 Mental status change 01/08/2013 014 Overview: Transient mental status change; [facility], 12/09/12 Amenorrhea 06/18/2011 12/07/2015 Open wound [...] of this encounter (statuses as of 10/24/2022) [facility] History of Past illness Narrative* Problem Noted Date Diagnosed Date Resolved Date Venous stasis ulcers 01/16/2016 017 BMI 40.0-44.9, adult 12/14/2014 015 BMI 50.0-59.9, adult 10/11/2013 015 Other lymphedema 04/26/2013 12/14/2014 Mental status change 01/08/2013 014 Overview: Transient mental status change; [facility], 12/09/12 Amenorrhea 06/18/2011 12/07/2015 Open wound [...] of this encounter (statuses as of 10/25/2022) [facility] History of Past illness Narrative* Problem Noted Date Diagnosed Date Resolved Date Venous stasis ulcers 01/16/2016 017 BMI 40.0-44.9, adult 12/14/2014 015 BMI 50.0-59.9, adult 10/11/2013 015 Other lymphedema 04/26/2013 12/14/2014 Mental status change 01/08/2013 014 Overview: Transient mental status change; [facility], 12/09/12 Amenorrhea 06/18/2011 12/07/2015 Open wound [...] of this encounter (statuses as of 10/29/2022) [facility] History of Past illness Narrative* Problem Noted Date Diagnosed Date Resolved Date Venous stasis ulcers 01/16/2016 017 BMI 40.0-44.9, adult 12/14/2014 015 BMI 50.0-59.9, adult 10/11/2013 015 Other lymphedema 04/26/2013 12/14/2014 Mental status change 01/08/2013 014 Overview: Transient mental status change; [facility], 12/09/12 Amenorrhea 06/18/2011 12/07/2015 Open wound [...] of this encounter (statuses as of 12/14/2022) [facility] History of Past illness Narrative* Problem Noted Date Diagnosed Date Resolved Date Venous stasis ulcers 01/16/2016 017 BMI 40.0-44.9, adult 12/14/2014 015 BMI 50.0-59.9, adult 10/11/2013 015 Other lymphedema 04/26/2013 12/14/2014 Mental status change 01/08/2013 014 Overview: Transient mental status change; [facility], 12/09/12 Amenorrhea 06/18/2011 12/07/2015 Open wound [...] of this encounter (statuses as of 01/21/2023) [facility] History of Past illness Narrative* Problem Noted Date Diagnosed Date Resolved Date Venous stasis ulcers 01/16/2016 017 BMI 40.0-44.9, adult 12/14/2014 015 BMI 50.0-59.9, adult 10/11/2013 015 Other lymphedema 04/26/2013 12/14/2014 Mental status change 01/08/2013 014 Overview: Transient mental status change; [facility], 12/09/12 Amenorrhea 06/18/2011 12/07/2015 Open wound [...] of this encounter (statuses as of 02/04/2023) [facility] History of Past illness Narrative* Problem Noted Date Diagnosed Date Resolved Date Venous stasis ulcers 01/16/2016 017 BMI 45.0-49.9, adult 02/09/2015 024 BMI 40.0-44.9, adult 12/14/2014 015 BMI 50.0-59.9, adult 10/11/2013 015 Other lymphedema 04/26/2013 12/14/2014 Mental status change 01/08/2013 014 Overview: Transient mental status change; [facility], 12/09/12 Amenorrhea 06/18/2011 12/07/2015 Open wound [...] of this encounter (statuses as of 05/30/2023) [facility] History of Past illness Narrative* Problem Noted Date Diagnosed Date Resolved Date Venous stasis ulcers 01/16/2016 017 BMI 45.0-49.9, adult 02/09/2015 024 BMI 40.0-44.9, adult 12/14/2014 015 BMI 50.0-59.9, adult 10/11/2013 015 Other lymphedema 04/26/2013 12/14/2014 Mental status change 01/08/2013 014 Overview: Transient mental status change; [facility], 12/09/12 Amenorrhea 06/18/2011 12/07/2015 Open wound [...] of this encounter (statuses as of 06/10/2023) [facility] History of Past illness Narrative* Problem Noted Date Diagnosed Date Resolved Date Venous stasis ulcers 01/16/2016 017 BMI 45.0-49.9, adult 02/09/2015 024 BMI 40.0-44.9, adult 12/14/2014 015 BMI 50.0-59.9, adult 10/11/2013 015 Other lymphedema 04/26/2013 12/14/2014 Mental status change 01/08/2013 014 Overview: Transient mental status change; [facility], 12/09/12 Amenorrhea 06/18/2011 12/07/2015 Open wound [...] of this encounter (statuses as of 06/13/2023) [facility] + Plan note No data available for this section [facility] Donaldelisabet Doty Evaluation note* Diagnosis Prader-Willi syndrome- Primary SOB (shortness of breath) Shortness of breath Physical therapy evaluation, initial Other specified examination documented in this encounter [facility] note* Diagnosis Lymphedema- Primary Other lymphedema Prader-Willi syndrome documented in this encounter [facility] note* Diagnosis Skin ulcer of left thigh, limited to breakdown of skin (HCC)- Primary documented in this encounter [facility] note* Diagnosis Lymphedema Other lymphedema documented in this encounter [facility] note* Diagnosis Prader-Willi syndrome- Primary Skin ulcer, limited to breakdown of skin (HCC) Pedal edema Edema Mild persistent asthma without complication Unspecified asthma Obstructive sleep apnea syndrome Obstructive sleep apnea (adult) (pediatric) documented in this encounter [facility] note* Diagnosis Prader-Willi syndrome- Primary Lipid screening Screening for lipoid disorders Encounter for screening for diabetes mellitus Screening for diabetes mellitus Vitamin D deficiency Unspecified vitamin D deficiency Elevated blood sugar Other abnormal glucose Hypothyroidism, unspecified type documented in this encounter [facility] note* Diagnosis Obstructive sleep apnea syndrome- Primary Obstructive sleep apnea (adult) (pediatric) Encounter for immunization Need for other specified prophylactic vaccination against single bacterial disease Mild intermittent asthma without complication Unspecified asthma Acquired hypothyroidism Unspecified hypothyroidism Lymphedema of right lower extremity Lymphedema of left lower extremity Sleep deprivation Problems related to lack of adequate sleep documented in this encounter [facility] note* Diagnosis Lymphedema Other lymphedema documented in this encounter [facility] note* Diagnosis Bilateral chronic knee pain- Primary Pain in joint, lower leg Acute cough documented in this encounter [facility] note* Diagnosis Annual physical exam- Primary Routine general medical examination at a health care facility 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 Obstructive sleep apnea syndrome Obstructive sleep apnea (adult) (pediatric) Mild intermittent asthma without complication Unspecified asthma Acquired hypothyroidism Unspecified hypothyroidism Lymphedema of left lower extremity documented in this encounter [facility] note* Diagnosis 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 Bee allergy status Allergy to insects and arachnids documented in this encounter [facility] note* Diagnosis Strain of lumbar region, subsequent encounter [facility] Diagnosis Strain of lumbar region, subsequent encounter [facility]* Diagnosis Medication management Encounter for long-term (current) use of other medications Acquired hypothyroidism Unspecified hypothyroidism documented in this encounter [facility] note* Diagnosis Lymphedema- Primary Other lymphedema Obstructive sleep apnea syndrome Obstructive sleep apnea (adult) (pediatric) Acquired hypothyroidism Unspecified hypothyroidism Mild intermittent asthma without complication Unspecified asthma documented in this encounter [facility] note* Diagnosis Bronchitis Bronchitis, not specified as acute or chronic [facility] Diagnosis 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 Bee allergy status Allergy to insects and arachnids [facility] Diagnosis Hypothalamic hypogonadism (HCC)- Primary Other [...] Edema, unspecified type [facility] Diagnosis Hypothalamic hypogonadism (HCC)- Primary Other [...] Primary Other lymphedema [facility] Diagnosis Hypothalamic hypogonadism (HCC)- Primary Other [...] left lower quadrant [facility] Jose is a 40 y/o female with history of PWS. * She was last seen in clinic in June of 2020. * At that time snf was observing food stealing behaviors. * Since last visit she moved in August of last year, though supervisor vat house is the same. * She does have a roommate. * She is present with supervisor vat house Anali today. * She goes to mom's [...] * L - likes crab and shrimp, greenlandic chicken; salad; bread * S - after [...] 0.8 gm pro/kg DBW ( * 38gm) [id number] 1500 Work Phone: History of Present illness [...] other weekend. When visiting her mom, the snf packs her food and medicine for her to bring. Patient reports that her mom has a camera at home so she can monitor how much food Cristina gets when she is at her moms house. Cristina's supervisor vat house also reported that the fride, freezer and pantry at the snf is locked and Cristina has no way of getting any outside food. She does currently take a MVI with Iron as well as Vit D and fish oil. Her most recent labs are from 2020. [facility] Work Phone: History of Present [...] sauerkraut if she is still hungry * -supervisor vat house also reports that they do have things [...] other weekend. When visiting her mom, the snf packs her food and medicine for her to bring. Patient reports that her mom has a camera at home so she can monitor how much food Cristina gets when she is at her moms house. Cristina's supervisor vat house also reported that the fride, freezer and pantry at the snf is locked and Cristina has no way of getting any outside food. She does currently take a MVI with Iron as well as Vit D and fish oil. Her most recent labs are from 2020. [facility] Work Phone: [facility] [place] for referral (narrative)* Outpatient Procedure (Urgent) - Closed Specialty Diagnoses / Procedures Referred By Hannah grimm Ref[facility] To [facility] Diagnoses Pain of left lower extremity Edema, unspecified type Procedures US LEG VEIN DVT UNL VAS LAB DUP-SCAN XTR VEINS UNILATERAL/LIMITED STUDY Elsie Kaplan APRN.CNP [address] [place] [address] [facility] [address] [place] [address] Referral ID Status Reason Start Date Expiration Date V isits Requested Visits Authorized [id number] Closed Auto-Generate d Referral 11/13/2023 11/12/2024 1 1 [facility] for referral (narrative)* Diagnostic Procedure Only (Routine) - Closed Specialty Diagnoses / Procedures Referred By Hannah grimm Referred To Contact [facility] Diagnoses Left groin pain Procedures US HIP LT US COMPL JOINT R-T W/IMAGE DOCUMENTATION Sherif Thakur MD [address] [place] [address] [facility] [place] [id number] Referral ID Status Reason Start Date Expiration Date V isits Requested Visits Authorized [id number] Closed Auto-Generate d Referral 04/23/2021 05/23/2022 1 1 [facility] for visit Narrative* Diagnostic Procedure Only (Routine) - Closed Specialty Diagnoses / Procedures Referred By Hannah grimm Referred To Contact [facility] Diagnoses Left groin pain Procedures US HIP LT US COMPL JOINT R-T W/IMAGE DOCUMENTATION Sherif Thakur MD [address] [place] [address] [place] [id number] Referral ID Status Reason Start Date Expiration Date V isits Requested Visits Authorized [id number] Closed Auto-Generate d Referral 04/23/2021 05/23/2022 1 1 [facility] Summary Purpose Family History No Family History [...] willi syndrome* Follow up * Accompanied by patient care provider. Reason for Referral Specialty Diagnoses / Procedures Referred By Hannah grimm Referred To Contact [facility] Diagnoses Physical therapy evaluation, initial Procedures CONSULT TO PHYSICAL THERAPY PHYSICAL THERAPY EVALUATION HIGH COMPLEX 45 MINS Sherif Thakur MD [address] [place] [address] [facility] [address] [address] Referral ID Status Reason Start Date Expiration Date Visits Requested Visits Authorized [id number] Authorized PCP Requested Referral Auto-Generate d Referral 06/28/2021 06/28/2022 99 99 Specialty Diagnoses / Procedures Referred By Contac t Referred To Contact [facility] [place] Diagnoses Prader-Willi syndrome SOB (shortness of breath) Procedures ECHO ECHO TTHRC R-T 2D W/WOM-MODE COMPL SPEC&COLR D Sherif Thakur MD [address] [place] [address] [facility] [place] [address] [place] [address] Referral ID Status Reason Start Date Expiration Date Visits Requested Visits Authorized [id number] Authorized Auto-Generat ed Referral 06/28/2021 06/28/2022 1 1 Specialty Diagnoses / Procedures Referred By Contac t Referred To Contact [facility] Diagnoses Lymphedema Procedures CONSULT TO LYMPHEDEMA THERAPY OFFICE/OUTPATIENT [facility] MDM 60 MINUTES Sherif Thakur MD [address] [place] [address] [facility] [address] [address] Referral ID Status Reason Start Date Expiration Date Visits Requested Visits Authorized [id number] Authorized Auto-Generat ed Referral 11/18/2023 11/17/2024 99 99 Additional Source Comments INFORMATION SOURCE (unrecogn ized section and content) DATE CREATED AUTHOR 09/02/2017 [facility] DATE CREATED AUTHOR AUTHOR'S ORGANIZ ATION 02/16/2021 [facility] DATE CREATED AUTHOR AUTHOR'S ORGANIZ ATION 12/12/2022 [facility] DATE CREATED AUTHOR AUTHOR'S ORGANIZ ATION 12/12/2022 [facility] DATE CREATED AUTHOR AUTHOR'S ORGANIZ ATION 12/08/2023 [facility] DATE CREATED AUTHOR AUTHOR'S ORGANIZ ATION 12/24/2023 [facility] DATE CREATED AUTHOR AUTHOR'S ORGANIZ ATION 12/26/2023 [facility] Reason for Visit (unrecogniz ed section and content) Reason Comments Results Reason Comments Forms Reason Comments [facility] verbal order ne eded [...] Request 11/24/2023 Reason Comments recert patient for senior care servi ce Reason Comments weight gain Reason Comments Medication Question Source Comments (unrecognize d section and content) In the event this informatio n is protected by the Federal Confidentiality of Alcohol and Drug Abuse Patient Records regulations: The Federal rules restrict any use of the information to criminally investigate or prosecute any alcohol or drug abuse patient.[facility] the event this information is protected by the Federal Confidentiality of Alcohol and Drug Abuse Patient Records regulations: The Federal rules restrict any use of the information to criminally investigate or prosecute any alcohol or drug abuse patient.[facility] the event this information is protected by the Federal Confidentiality of Alcohol and Drug Abuse Patient Records regulations: The Federal rules restrict any use of the information to criminally investigate or prosecute any alcohol or drug abuse patient.[facility] the event this information is protected by the Federal Confidentiality of Alcohol and Drug Abuse Patient Records regulations: The Federal rules restrict any use of the information to criminally investigate or prosecute any alcohol or drug abuse patient.[facility] the event this information is protected by the Federal Confidentiality of Alcohol and Drug Abuse Patient Records regulations: The Federal rules restrict any use of the information to criminally investigate or prosecute any alcohol or drug abuse patient.[facility] the event this information is protected by the Federal Confidentiality of Alcohol and Drug Abuse Patient Records regulations: The Federal rules restrict any use of the information to criminally investigate or prosecute any alcohol or drug abuse patient.[facility] the event this information is protected by the Federal Confidentiality of Alcohol and Drug Abuse Patient Records regulations: The Federal rules restrict any use of the information to criminally investigate or prosecute any alcohol or drug abuse patient.[facility] the event this information is protected by the Federal Confidentiality of Alcohol and Drug Abuse Patient Records regulations: The Federal rules restrict any use of the information to criminally investigate or prosecute any alcohol or drug abuse patient.[facility] the event this information is protected by the Federal Confidentiality of Alcohol and Drug Abuse Patient Records regulations: The Federal rules restrict any use of the information to criminally investigate or prosecute any alcohol or drug abuse patient.[facility] the event this information is protected by the Federal Confidentiality of Alcohol and Drug Abuse Patient Records regulations: The Federal rules restrict any use of the information to criminally investigate or prosecute any alcohol or drug abuse patient.[facility] the event this information is protected by the Federal Confidentiality of Alcohol and Drug Abuse Patient Records regulations: The Federal rules restrict any use of the information to criminally investigate or prosecute any alcohol or drug abuse patient.[facility] the event this information is protected by the Federal Confidentiality of Alcohol and Drug Abuse Patient Records regulations: The Federal rules restrict any use of the information to criminally investigate or prosecute any alcohol or drug abuse patient.[facility] the event this information is protected by the Federal Confidentiality of Alcohol and Drug Abuse Patient Records regulations: The Federal rules restrict any use of the information to criminally investigate or prosecute any alcohol or drug abuse patient.[facility] the event this information is protected by the Federal Confidentiality of Alcohol and Drug Abuse Patient Records regulations: The Federal rules restrict any use of the information to criminally investigate or prosecute any alcohol or drug abuse patient.[facility] the event this information is protected by the Federal Confidentiality of Alcohol and Drug Abuse Patient Records regulations: The Federal rules restrict any use of the information to criminally investigate or prosecute any alcohol or drug abuse patient.[facility] the event this information is protected by the Federal Confidentiality of Alcohol and Drug Abuse Patient Records regulations: The Federal rules restrict any use of the information to criminally investigate or prosecute any alcohol or drug abuse patient.[facility] the event this information is protected by the Federal Confidentiality of Alcohol and Drug Abuse Patient Records regulations: The Federal rules restrict any use of the information to criminally investigate or prosecute any alcohol or drug abuse patient.[facility] the event this information is protected by the Federal Confidentiality of Alcohol and Drug Abuse Patient Records regulations: The Federal rules restrict any use of the information to criminally investigate or prosecute any alcohol or drug abuse patient.[facility] the event this information is protected by the Federal Confidentiality of Alcohol and Drug Abuse Patient Records regulations: The Federal rules restrict any use of the information to criminally investigate or prosecute any alcohol or drug abuse patient.[facility] the event this information is protected by the Federal Confidentiality of Alcohol and Drug Abuse Patient Records regulations: The Federal rules restrict any use of the information to criminally investigate or prosecute any alcohol or drug abuse patient.[facility] the event this information is protected by the Federal Confidentiality of Alcohol and Drug Abuse Patient Records regulations: The Federal rules restrict any use of the information to criminally investigate or prosecute any alcohol or drug abuse patient.[facility] the event this information is protected by the Federal Confidentiality of Alcohol and Drug Abuse Patient Records regulations: The Federal rules restrict any use of the information to criminally investigate or prosecute any alcohol or drug abuse patient.[facility] the event this information is protected by the Federal Confidentiality of Alcohol and Drug Abuse Patient Records regulations: The Federal rules restrict any use of the information to criminally investigate or prosecute any alcohol or drug abuse patient.[facility] the event this information is protected by the Federal Confidentiality of Alcohol and Drug Abuse Patient Records regulations: The Federal rules restrict any use of the information to criminally investigate or prosecute any alcohol or drug abuse patient.[facility] the event this information is protected by the Federal Confidentiality of Alcohol and Drug Abuse Patient Records regulations: The Federal rules restrict any use of the information to criminally investigate or prosecute any alcohol or drug abuse patient.[facility] the event this information is protected by the Federal Confidentiality of Alcohol and Drug Abuse Patient Records regulations: The Federal rules restrict any use of the information to criminally investigate or prosecute any alcohol or drug abuse patient.[facility] the event this information is protected by the Federal Confidentiality of Alcohol and Drug Abuse Patient Records regulations: The Federal rules restrict any use of the information to criminally investigate or prosecute any alcohol or drug abuse patient.[facility] the event this information is protected by the Federal Confidentiality of Alcohol and Drug Abuse Patient Records regulations: The Federal rules restrict any use of the information to criminally investigate or prosecute any alcohol or drug abuse patient.[facility] the event this information is protected by the Federal Confidentiality of Alcohol and Drug Abuse Patient Records regulations: The Federal rules restrict any use of the information to criminally investigate or prosecute any alcohol or drug abuse patient.[facility] the event this information is protected by the Federal Confidentiality of Alcohol and Drug Abuse Patient Records regulations: The Federal rules restrict any use of the information to criminally investigate or prosecute any alcohol or drug abuse patient.[facility] the event this information is protected by the Federal Confidentiality of Alcohol and Drug Abuse Patient Records regulations: The Federal rules restrict any use of the information to criminally investigate or prosecute any alcohol or drug abuse patient.[facility] the event this information is protected by the Federal Confidentiality of Alcohol and Drug Abuse Patient Records regulations: The Federal rules restrict any use of the information to criminally investigate or prosecute any alcohol or drug abuse patient.[facility] the event this information is protected by the Federal Confidentiality of Alcohol and Drug Abuse Patient Records regulations: The Federal rules restrict any use of the information to criminally investigate or prosecute any alcohol or drug abuse patient.[facility] the event this information is protected by the Federal Confidentiality of Alcohol and Drug Abuse Patient Records regulations: The Federal rules restrict any use of the information to criminally investigate or prosecute any alcohol or drug abuse patient.[facility] the event this information is protected by the Federal Confidentiality of Alcohol and Drug Abuse Patient Records regulations: The Federal rules restrict any use of the information to criminally investigate or prosecute any alcohol or drug abuse patient.[facility] the event this information is protected by the Federal Confidentiality of Alcohol and Drug Abuse Patient Records regulations: The Federal rules restrict any use of the information to criminally investigate or prosecute any alcohol or drug abuse patient.[facility] the event this information is protected by the Federal Confidentiality of Alcohol and Drug Abuse Patient Records regulations: The Federal rules restrict any use of the information to criminally investigate or prosecute any alcohol or drug abuse patient.[facility] the event this information is protected by the Federal Confidentiality of Alcohol and Drug Abuse Patient Records regulations: The Federal rules restrict any use of the information to criminally investigate or prosecute any alcohol or drug abuse patient.[facility] the event this information is protected by the Federal Confidentiality of Alcohol and Drug Abuse Patient Records regulations: The Federal rules restrict any use of the information to criminally investigate or prosecute any alcohol or drug abuse patient.[facility] the event this information is protected by the Federal Confidentiality of Alcohol and Drug Abuse Patient Records regulations: The Federal rules restrict any use of the information to criminally investigate or prosecute any alcohol or drug abuse patient.[facility] the event this information is protected by the Federal Confidentiality of Alcohol and Drug Abuse Patient Records regulations: The Federal rules restrict any use of the information to criminally investigate or prosecute any alcohol or drug abuse patient.[facility] the event this information is protected by the Federal Confidentiality of Alcohol and Drug Abuse Patient Records regulations: The Federal rules restrict any use of the information to criminally investigate or prosecute any alcohol or drug abuse patient.[facility] the event this information is protected by the Federal Confidentiality of Alcohol and Drug Abuse Patient Records regulations: The Federal rules restrict any use of the information to criminally investigate or prosecute any alcohol or drug abuse patient.[facility] the event this information is protected by the Federal Confidentiality of Alcohol and Drug Abuse Patient Records regulations: The Federal rules restrict any use of the information to criminally investigate or prosecute any alcohol or drug abuse patient.[facility] the event this information is protected by the Federal Confidentiality of Alcohol and Drug Abuse Patient Records regulations: The Federal rules restrict any use of the information to criminally investigate or prosecute any alcohol or drug abuse patient.[facility] the event this information is protected by the Federal Confidentiality of Alcohol and Drug Abuse Patient Records regulations: The Federal rules restrict any use of the information to criminally investigate or prosecute any alcohol or drug abuse patient.[facility] the event this information is protected by the Federal Confidentiality of Alcohol and Drug Abuse Patient Records regulations: The Federal rules restrict any use of the information to criminally investigate or prosecute any alcohol or drug abuse patient.[facility] the event this information is protected by the Federal Confidentiality of Alcohol and Drug Abuse Patient Records regulations: The Federal rules restrict any use of the information to criminally investigate or prosecute any alcohol or drug abuse patient.[facility] the event this information is protected by the Federal Confidentiality of Alcohol and Drug Abuse Patient Records regulations: The Federal rules restrict any use of the information to criminally investigate or prosecute any alcohol or drug abuse patient.[facility] the event this information is protected by the Federal Confidentiality of Alcohol and Drug Abuse Patient Records regulations: The Federal rules restrict any use of the information to criminally investigate or prosecute any alcohol or drug abuse patient.[facility] the event this information is protected by the Federal Confidentiality of Alcohol and Drug Abuse Patient Records regulations: The Federal rules restrict any use of the information to criminally investigate or prosecute any alcohol or drug abuse patient.[facility] the event this information is protected by the Federal Confidentiality of Alcohol and Drug Abuse Patient Records regulations: The Federal rules restrict any use of the information to criminally investigate or prosecute any alcohol or drug abuse patient.[facility] the event this information is protected by the Federal Confidentiality of Alcohol and Drug Abuse Patient Records regulations: The Federal rules restrict any use of the information to criminally investigate or prosecute any alcohol or drug abuse patient.[facility] the event this information is protected by the Federal Confidentiality of Alcohol and Drug Abuse Patient Records regulations: The Federal rules restrict any use of the information to criminally investigate or prosecute any alcohol or drug abuse patient.[facility] the event this information is protected by the Federal Confidentiality of Alcohol and Drug Abuse Patient Records regulations: The Federal rules restrict any use of the information to criminally investigate or prosecute any alcohol or drug abuse patient.[facility] the event this information is protected by the Federal Confidentiality of Alcohol and Drug Abuse Patient Records regulations: The Federal rules restrict any use of the information to criminally investigate or prosecute any alcohol or drug abuse patient.[facility] the event this information is protected by the Federal Confidentiality of Alcohol and Drug Abuse Patient Records regulations: The Federal rules restrict any use of the information to criminally investigate or prosecute any alcohol or drug abuse patient.[facility] the event this information is protected by the Federal Confidentiality of Alcohol and Drug Abuse Patient Records regulations: The Federal rules restrict any use of the information to criminally investigate or prosecute any alcohol or drug abuse patient.[facility] the event this information is protected by the Federal Confidentiality of Alcohol and Drug Abuse Patient Records regulations: The Federal rules restrict any use of the information to criminally investigate or prosecute any alcohol or drug abuse patient.[facility] the event this information is protected by the Federal Confidentiality of Alcohol and Drug Abuse Patient Records regulations: The Federal rules restrict any use of the information to criminally investigate or prosecute any alcohol or drug abuse patient.[facility] Care Teams (unrecognized sec tion and content) Tier And Detonator Relationship Specialty Start Date End Date Sherif Thakur MD [address] [place] [address] PCP - General Internal Medicine 12/13/15 Tier And Detonator Relationship Specialty Start Date End Date Sherif Thakur MD [address] [place] [address] PCP - General Internal Medicine 12/13/15 Tier And Detonator Relationship Specialty Start Date End Date Sherif Thakur MD [address] [place] [address] PCP - General Internal Medicine 12/13/15 Tier And Detonator Relationship Specialty Start Date End Date Sherif Thakur MD [address] [facility] [place] [address] PCP - General Internal Medicine 12/13/15 Tier And Detonator Relationship Specialty Start Date End Date Sherif Thakur MD [address] [place] [address] PCP - General Internal Medicine 12/13/15 Tier And Detonator Relationship Specialty Start Date End Date Sherif Thakur MD [address] [facility] [place] [address] PCP - General Internal Medicine 12/13/15 Tier And Detonator Relationship Specialty Start Date End Date Sherif Thakur MD [address] [place] [address] PCP - General Internal Medicine 12/13/15 Tier And Detonator Relationship Specialty Start Date End Date Sherif Thakur MD [address] [place] [address] PCP - General Internal Medicine 12/13/15 Tier And Detonator Relationship Specialty Start Date End Date Sherif Thakur MD [address] [place] [address] PCP - General Internal Medicine 12/13/15 Tier And Detonator Relationship Specialty Start Date End Date Sherif Thakur MD [address] [place] [address] PCP - General Internal Medicine 12/13/15 Tier And Detonator Relationship Specialty Start Date End Date Sherif Thakur MD [address] [place] [address] PCP - General Internal Medicine 12/13/15 Tier And Detonator Relationship Specialty Start Date End Date Sherif Thakur MD [address] [place] [address] PCP - General Internal Medicine 12/13/15 Tier And Detonator Relationship Specialty Start Date End Date Sherif Thakur MD [address] [place] [address] PCP - General Internal Medicine 12/13/15 Tier And Detonator Relationship Specialty Start Date End Date Sherif Thakur MD [address] [place] [address] PCP - General Internal Medicine 12/13/15 Tier And Detonator Relationship Specialty Start Date End Date Sherif Thakur MD [address] [place] [address] PCP - General Internal Medicine 12/13/15 Tier And Detonator Relationship Specialty Start Date End Date Sherif Thakur MD [address] [place] [address] PCP - General Internal Medicine 12/13/15 Tier And Detonator Relationship Specialty Start Date End Date Sherif Thakur MD [address] [place] [address] PCP - General Internal Medicine 12/13/15 Tier And Detonator Relationship Specialty Start Date End Date Sherif Thakur MD [address] [place] [address] PCP - General Internal Medicine 12/13/15 Tier And Detonator Relationship Specialty Start Date End Date Sherif Thakur MD [address] [place] [address] PCP - General Internal Medicine 12/13/15 Tier And Detonator Relationship Specialty Start Date End Date Sherif Thakur MD [address] [place] [address] PCP - General Internal Medicine 12/13/15 Tier And Detonator Relationship Specialty Start Date End Date Sherif Thakur MD [address] [place] [address] PCP - General Internal Medicine 12/13/15 Tier And Detonator Relationship Specialty Start Date End Date Sherif Thakur MD [address] [place] [address] PCP - General Internal Medicine 12/13/15 Tier And Detonator Relationship Specialty Start Date End Date Sherif Thakur MD [address] [place] [address] PCP - General Internal Medicine 12/13/15 Tier And Detonator Relationship Specialty Start Date End Date Sherif Thakur MD [address] [place] [address] PCP - General Internal Medicine 12/13/15 Tier And Detonator Relationship Specialty Start Date End Date Sherif Thakur MD [address] [place] [address] PCP - General Internal Medicine 12/13/15 Tier And Detonator Relationship Specialty Start Date End Date Sherif Thakur MD [address] [place] [address] PCP - General Internal Medicine 12/13/15 Tier And Detonator Relationship Specialty Start Date End Date Sherif Thakur MD [address] [place] [address] PCP - General Internal Medicine 12/13/15 Tier And Detonator Relationship Specialty Start Date End Date Sherif Thakur MD [address] [place] [address] PCP - General Internal Medicine 12/13/15 Tier And Detonator Relationship Specialty Start Date End Date Sherif Thakur MD [address] [place] [address] PCP - General Internal Medicine 12/13/15 Tier And Detonator Relationship Specialty Start Date End Date Sherif Thakur MD [address] [place] [address] PCP - General Internal Medicine 12/13/15 Tier And Detonator Relationship Specialty Start Date End Date Sherif Thakur MD [address] [place] [address] PCP - General Internal Medicine 12/13/15 Tier And Detonator Relationship Specialty Start Date End Date Sherif Thakur MD [address] [place] [address] PCP - General Internal Medicine 12/13/15 Tier And Detonator Relationship Specialty Start Date End Date Sherif Thakur MD [address] [place] [address] PCP - General Internal Medicine 12/13/15 Tier And Detonator Relationship Specialty Start Date End Date Sherif Thakur MD [address] [place], [place] [id number] PCP - General Internal Medicine 12/13/15 Tier And Detonator Relationship Specialty Start Date End Date Sherif Thakur MD [address] [place] [address] PCP - General Internal Medicine 12/13/15 FOR [...] BE BASED ON THE PRIMARY CLINICAL RECORDS. [facility]. provides no warranty or guarantee of the accuracy or completeness of information in this document.
--- NOTE | 2023-12-26 21:11 | ED.RN ---
report gave to Moon ARREGUIN, questions/concerns answered
[2023-12-26 21:28] LABS: Procalcitonin 0.12 ng/mL (0.00-0.09)
[2023-12-27] VITALS (33 sets, daily range): BP systolic 85–128; BP diastolic 52–93; PULSE 57–80; RESP 11–28; TEMP 36.1–36.8; O2SAT 92–100
[2023-12-27] MEDS: Furosemide 40 MG/4 ML Vial IV ×3 (00:21→17:43)
[2023-12-27] MEDS: Carvedilol 3.125 MG TABLET PO ×3 (00:21→20:47)
[2023-12-27] MEDS: Atorvastatin Calcium 40 MG Tablet PO ×2 (00:21→20:48)
[2023-12-27] MEDS: Nystatin Powder 15gm Bottle 1 APPLIC TOPICAL ×3 (00:21→20:59)
[2023-12-27] MEDS: Clotrimazole 1 APPLIC Tube TOPICAL ×2 (00:23→08:45)
[2023-12-27] MEDS: Aspirin 325 MG Tablet PO (00:27)
[2023-12-27 01:43] LABS: Partial Thromboplast Time 95.2 Seconds (24.1-36.2)
[2023-12-27 01:50] LABS: Bedside Glucose 73 mg/dL (74-106)
--- NOTE | 2023-12-27 05:55 | ECHOCS_ITS ---
Version 2 Reason For Study: NSTEMI Procedure This was a 2D Doppler, Color Flow transthoracic echocardiogram. The study was technically difficult. Contrast injection was performed. Exam performed portable in ICU/CCU. Left Ventricle Normal LV size. Left ventricular systolic function is normal. The left ventricular ejection fraction is 55 %. No regional wall motion abnormalities noted. Right Ventricle Mildly dilated right ventricle. Mild global right ventricular systolic dysfunction. Atria Normal left atrium. Normal right atrium. Mitral Valve Normal mitral valve. Tricuspid Valve Normal tricuspid valve. Moderate (2+) tricuspid valve insufficiency. Pulmonary artery systolic pressure is 67 mmHg. Aortic Valve Trisinus/trileaflet aortic valve. Mild focal aortic valve thickening. Pulmonic Valve Normal pulmonic valve. Great Vessels Normal aortic root. The pulmonary artery is normal size. Normal inferior vena cava. Pericardium/Pleural No pericardial effusion. Medication Diluted definity 4ml given slow IV push to enhance endocardial definition. MMode/2D Measurements & Calculations LVIDd: 3.9 cm IVSd: 1.2 cm LVOT diam: 2.0 cm LVIDs: 2.4 cm LVPWd: 1.0 cm RVDd: 4.5 cm FS: 36.9 % LVOT area: 3.0 cm2 asc Aorta Diam: 2.6 cm LAV(MOD-bp): 26.8 ml LVAd ap4: 25.7 cm2 LAV(MOD-bp) Indexed: 12.3 ml/m2 LVLd ap4: 7.3 cm LAV(MOD-sp2): 32.4 ml EDV(MOD-sp4): 74.4 ml LAV(MOD-sp4): 20.5 ml EDV(sp4-el): 77.2 ml LVAs ap4: 16.4 cm2 LVLs ap4: 6.4 cm ESV(MOD-sp4): 35.3 ml ESV(sp4-el): 35.8 ml EF(MOD-sp4): 52.5 % EF(sp4-el): 53.6 % LVAd ap2: 25.4 cm2 SV(MOD-sp4): 39.0 ml SV(MOD-sp2): 45.5 ml LVLd ap2: 7.4 cm EDV(MOD-sp2): 70.9 ml EDV(sp2-el): 74.1 ml LVAs ap2: 13.5 cm2 LVLs ap2: 6.0 cm ESV(MOD-sp2): 25.4 ml ESV(sp2-el): 25.5 ml EF(MOD-sp2): 64.2 % SV(sp4-el): 41.4 ml Ao sinus diam: 2.[address] Junction: 2.1 cm LA dimension(2D): 3.5 cm LA A4 area: 10.8 cm2 RA A4 area: 18.9 cm2 TAPSE: 2.1 cm Time Measurements MV dec time: 0.22 sec Doppler Measurements & Calculations MV E max abdoul: 40.0 cm/sec Lat Peak E' Abdoul: 8.7 cm/sec Med Peak E' Abdoul: 7.3 cm/sec MV A max abdoul: 44.7 cm/sec E/E' lat: 4.6 E/E' med: 5.5 MV E/A: 0.89 MV dec slope: 185.7 cm/sec2 Ao V2 max: 148.5 cm/sec LV V1 max: 107.4 cm/sec Ao max P.8 mmHg LV V1 max P.6 mmHg Ao V2 mean: 108.8 cm/sec LV V1 mean P.8 mmHg Ao mean P.1 mmHg LV V1 mean: 80.1 cm/sec Ao V2 VTI: 23.6 cm LV V1 VTI: 17.8 cm AV (velocity ratio): 0.76 JANIE(I,D): 2.3 cm2 JANIE(V,D): 2.2 cm2 SV(LVOT): 53.3 ml PA V2 max: 79.9 cm/sec TR max abdoul: 363.0 cm/sec PA max PG (full): 1.7 mmHg TR max P.7 mmHg ECHO/Echo Complete W/ Contrast Interpretation Summary Normal LV size and function. Dilated RV with impaired function Moderate TR Pulmonary pressure of 67mmhg Left ventricular systolic function is normal. The left ventricular ejection fraction is 55 %. Mildly dilated right ventricle. Ordering Physician: Cinthia Torres Performed By: Danii Andersen RDCS
[2023-12-27] MEDS: Levothyroxine 100 MCG Tablet PO (06:03)
[2023-12-27] MEDS: Dicyclomine 10 MG Capsule 20 MG PO ×3 (06:03→15:51)
[2023-12-27 06:18] LABS: Absolute Lymphocyte Count 3.05 X10^3/uL (0.83-4.51); Absolute Neutrophil Count 6.2 X10^3/uL (2.0-7.7); Basophil# 0.05 X10^3/uL; Basophil% 0.5 % (0-1); Eosinophil# 0.38 X10^3/uL; Eosinophils% 3.5 % (0-5); Hematocrit 39.7 % (37-47); Hemoglobin 12.2 g/dL (12.0-15.0); Lymphocyte # 3.05 X10^3/ul (0.83-4.51); Lymphocyte % 28.1 % (19-41); Mean Corp Hgb Conc 30.7 g/dL (32-36); Mean Corpuscular Hgb 31.8 pg (27.0-32.0); Mean Corpuscular Volume 103.4 fL (81-99); Mean Platelet Vol. 10.9 fl (6.2-12.0); Monocyte# 1.15 X10^3/uL; Monocyte% 10.6 % (0-10); NRBC Flagged by Analyzer 0 % (0-5); Neutrophil # 6.15 X10^3/uL (2.7-7.7); Neutrophil % 56.7 % (47-70); Platelet Count 135 K/mm3 (150-450); RBC Distribution Width CV 13.4 % (11.6-14.6); RBC Distribution Width SD 50.4 fl (35.1-43.9); Red Blood Count 3.84 M/mm3 (4.2-5.4); White Blood Count 10.9 K/mm3 (4.4-11.0)
[2023-12-27 06:46] LABS: ALB/GLOB Ratio 0.8 RATIO (0.9-2.4); AST(SGOT) 76 U/L (15-37); Alanine Aminotransfer ALT/SGPT 92 U/L (13-56); Albumin, Serum 2.8 g/dL (3.2-5.0); Alkaline Phosphatase 92 U/L (45-117); Anion Gap 1 (5-15); BUN 22 mg/dL (7-18); Calcium,Total 8.1 mg/dL (8.5-10.1); Chloride 106 mmol/L (98-107); Cholesterol 112 mg/dL (200); Creatinine, Serum 0.54 mg/dL (0.55-1.02); EST Glomerular Filtration Rate 133 mL/min (>60); Est Glom Filt Rate - Afr Amer 161 mL/min (>60); Estimated Creatinine Clearance 175.01 ml/min; Globulin 3.4 g/dL (2.2-4.2); Glucose 118 mg/dL (74-106); High Density Lipoprotein 52 mg/dL; Potassium 4.1 mmol/L (3.5-5.1); Protein, Total 6.2 g/dL (6.4-8.2); Sodium Level 141 mmol/L (136-145); Triglycerides 63 mg/dL; Very Low Density Lipoprotein 13 mg/dL (5-40)
[2023-12-27] MEDS: Budesonide Respules 0.5 MG/2 ML AMPUL.NEB. INHALATION ×2 (07:02→19:18)
[2023-12-27] MEDS: Potassium Chloride Oral Tablet 10 MEQ PO (08:44)
[2023-12-27] MEDS: Fluticasone 0.05% 1 SPRAY NASAL.SRY NASAL (08:46)
[2023-12-27] MEDS: Aspirin 81 MG TAB.CHEW PO (08:46)
[2023-12-27 09:31] LABS: Partial Thromboplast Time 47.5 Seconds (24.1-36.2)
[2023-12-27 09:39] LABS: Troponin-I HS 256 pg/mL (3.0-54.0)
--- NOTE | 2023-12-27 09:51 | PCM.CONS.C ---
Assessment & Plan Assessment/Plan (1) Acute respiratory failure with hypoxia and hypercapnia: PLAN: Patient presented with progressive shortness of breath and an 8 pound weight gain with a pH equal to 7.25 and hypoxia with hypercapnia. This required BiPAP therapy in the emergency department. Her initial troponin was 771 it went down to 256 on the second check. The second check was several hours after the first 1. Her BNP is elevated at 1051. Currently the patient is resting comfortably on nasal cannula. (2) Abnormal ECG: PLAN: Patient's EKG done during her respiratory insufficiency showed T wave inversions in the inferior and anterior septal leads. The patient's old EKG from 2014 did not show these T wave inversions. However, she does carry a history of obstructive sleep apnea and pulmonary hypertension this could represent changes over time with right ventricular heart failure. A 2D echocardiogram is pending at this time. Further recommendations to be forthcoming once that is available. CTA to rule out pulmonary emboli in February 2015 which showed no coronary artery calcifications. She also had a negative pharmacologic nuclear stress test September 2014 with no evidence of ischemia. The patient's troponin initially on presentation was 771 when she was in respiratory distress requiring BiPAP and it is come down to 256 several hours after the initial drawing. I feel this represents a demand type ischemic event not a true non-STEMI. Forthcoming once the results of the echo are available. 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 She lives in a retirement. Further treatment will be deferred to the primary service. The patient is not diabetic. Her body habitus and diffuse adipose tissue make it very difficult to determine her volume status clinically. (4) Elevated troponin: PLAN: The elevated troponins appear to be demand ischemia in etiology. I feel this is related to her respiratory failure on presentation. An echocardiogram is pending at the time this dictation and further recommendations will follow once that is available. PLAN: Plan 1. Would recommend discontinuing the heparin. 2. Should proceed with DVT prophylaxis therapy from an anticoagulation standpoint. 3. Do not feel that IV heparin or nitrates are indicated at this time. 4. Continue with other medical therapy per the primary service. 5. Further recommend the echocardiogram results are available. HPI Consult Data Date of Consult: 12/27/23 HPI Narrative Reason for Consultation: Respiratory distress with elevated troponins and EKG changes HPI Narrative: JOSE ABDUL, is a 43 F who presents to the emergency department with complaints of right shoulder right chest discomfort associated with shortness of breath and an 8 pound weight gain over the last week. The last documented weight that I have for the patient is 390 pounds. She has a history of Prader?Miguel A syndrome and she lives in a retirement. Patient's evaluation emergency department revealed respiratory failure with elevated CO2 and hypoxemia. pH was documented at 7.25. She required BiPAP. Her BNP was elevated at 1051 and troponins were 771. An EKG done showed sinus rhythm at 75 bpm with T wave inversions in the inferior and anterior septal leads. This was new compared to an old EKG from February 2015. The patient had a remote CTA that reported her cardiac structures to be normal there was no mention of coronary calcification. I do not have access to family history she is not able to give me that information. In the chart is noted there is a history of heart disease but no mention of the type. The patient has a history of pulmonary issues diagnosed with COPD but she has never smoked and she has obstructive sleep apnea. She also has a history of pulmonary hypertension documented on echocardiogram August 2020 PA pressures were estimated at 54 mmHg. The patient is unable to give me what I feel to be an accurate history and she reports that she does not know if she is having any symptoms or not now. 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 She did report to me that she had some type of congenital heart issue that was treated by a left chest stick. However her echo done August 2020 showed that her LV was normal with normal systolic function EF of 65% with grade 1 diastolic dysfunction her RV was normal size and function atria were both normal size her valves were all normal there was 1+ tricuspid insufficiency giving a pulmonary artery systolic pressure estimated 54 mmHg. There was no pericardial effusion. There was nothing on that echo to suggest congenital heart disease or status post repair of congenital heart disease. The patient has not had a second troponin done it is pending at this time. The nitroglycerin was discontinued due to low blood pressure. She does have a history of hypertension in her home environment but she is not on any antihypertensive therapy at home. She does have a history of anaphylaxis to bee stings. [facility] Medical History COPD (chronic obstructive pulmonary disease) HTN (hypertension) Hypothyroidism Morbid obesity with body mass index (BMI) greater than or equal to 50 DACIA treated with BiPAP Prader-Willi syndrome Home Medications ?Medication ?Instructions ?Recorded ?Last Taken ?Type ammonium lactate 12 % topical cream 1 applicatio topical DAILY 10/26/13 12/26/23 History calcium 600 mg (as 1 ea PO BID 10/26/13 12/26/23 History carbonate)-vitamin D3 10 mcg (400 unit) tablet omega-3 fatty acids-fish oil 300 1 ea PO DAILY 10/26/13 12/26/23 History mg-500 mg capsule epinephrine 0.3 mg/0.3 mL 0.3 mg IM X1 PRN Anaphylaxis 06/01/16 Unknown History injection, auto-injector nystatin 100,000 unit/gram topical 1 applic topical BID 06/01/16 12/26/23 History powder clotrimazole 1 % topical cream 1 applic topical BID 04/08/17 12/26/23 History fluticasone propionate 50 50 mcg intranasal ONCE 04/08/17 12/26/23 History mcg/actuation nasal spray,suspension albuterol sulfate 90 mcg/actuation 2 puff inhalation Q6H PRN 05/22/21 Unknown History aerosol inhaler shortness of breath or wheezing potassium chloride 10 mEq 10 meq PO DAILY 05/22/21 12/26/23 History capsule,extended release norethindrone (contraceptive) 0.35 0.35 mg PO QDAY #84 tabs 06/02/23 12/26/23 Rx mg tablet (Arianna) furosemide 40 mg tablet (Lasix) 40 mg PO DAILY 5 days #5 tabs 10/31/23 12/26/23 Rx dicyclomine 10 mg capsule 20 mg (2 x 10 mg) PO TIDAC #20 12/23/23 12/26/23 Rx CAPSULES diphenoxylate-atropine 2.5 1 tab PO Q6H PRN diarrhea #14 tabs 12/23/23 Unknown Rx mg-0.025 mg tablet (Lomotil) levothyroxine 100 mcg tablet 100 mcg PO DAILY 12/26/23 12/26/23 History mometasone-formoterol HFA 100 2 inh inhalation BID 12/26/23 12/26/23 History mcg-5 mcg/actuation aerosol inhaler (Dulera) multivitamin-ferrous 1 tab PO DAILY 12/26/23 12/26/23 History fumarate-folic acid 18 mg-400 mcg tablet (A Thru Z Advanced Formula) ondansetron 4 mg disintegrating 4 mg PO Q8H PRN Nausea 12/26/23 12/26/23 History tablet Allergy/AdvReac Type Severity Reaction Status Date / Time insect venom (insect bites) Allergy Intermediate Itching Verified 12/26/23 17:06 phenytoin sodium (From Allergy Unknown Verified 12/26/23 17:06 Dilantin) phenytoin sodium extended Allergy Unknown Verified 12/26/23 17:06 (From Dilantin) venom-honey bee (bee venom Allergy Unknown Verified 12/26/23 17:06 (honey bee)) Family History Grandmother Diabetes Heart disease Hypertension Mother Diabetes Grandfather Hypertension Father No problems noted. Surgical History History of tonsillectomy and adenoidectomy Social History household members: none housing: other details: long term. Smoking Status: Never smoker alcohol intake: never substance use type: does not use caffeine: Yes frequency: daily seatbelt use: always do you feel safe at home: Yes additional social history: Louis [facility] Homelessness:: Sheltered (Lives in a retirement) ROS ROS Narrative Patient is very slow to answer questions there is an obvious cognitive deficit. 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 Review of Systems ROS Unobtainable: due to mental condition Constitutional Constitutional: Reports systems reviewed and no addt'l complaints, except as documented Eyes Eyes: Reports systems reviewed and no addt'l complaints, except as documented ENT HEENT: Reports systems reviewed and no addt'l complaints, except as documented Cardiovascular Cardiovascular: Reports as per HPI Respiratory/Chest Respiratory/Chest: Reports as per HPI Gastrointestinal Gastrointestinal: Reports systems reviewed and no addt'l complaints, except as documented Genitourinary Genitourinary: Reports systems reviewed and no addt'l complaints, except as documented Musculoskeletal Musculoskeletal: Reports systems reviewed and no addt'l complaints, except as documented Integumentary Integumentary: Reports systems reviewed and no addt'l complaints, except as documented Neurologic Neurologic: Reports systems reviewed and no addt'l complaints, except as documented Psychiatric Psychiatric: Reports as per HPI Endocrine Endocrinology: Reports systems reviewed and no addt'l complaints, except as documented Hematologic/Lymphatic Hematologic/Lymphatic: Reports systems reviewed and no addt'l complaints, except as documented Allergic/Immunologic Allergic/Immunologic: Reports as per HPI Physical Exam Const alert Constitutional Narrative: Patient is alert but slow to answer questions. She appears to be oriented x 3. HEENT normocephalic Eyes EOMs intact bilaterally Eyes Narrative: Require significant corrective lenses Neck full ROM Chest Chest Narrative: Significant AP diameter increased related to body habitus. Resp normal respiratory effort Auscultation: diminished lung sounds diffuse Cardio Cardio Narrative: Very distant heart tones related to body habitus. Rate: regular rate Rhythm: regular rhythm Heart Sounds: S1 normal and S2 normal; Negative for click, gallop or murmur GI GI Narrative: Massively obese Extremity General Extremity: edema bilateral upper extremity (Difficult discern due to adipose tissue) and lower extremity (Difficult to ascertain due to adipose tissue) Details: mild Neuro Neuro Narrative: Slow to answer questions and question the accuracy of the answers. Psych Psych Narrative: Obvious cognitive deficits. Risk Stratification Risk Stratification Applicable: Yes Age >/= 65: No >/= 3 CAD Risk Factors (HTN, HLD, DM, family hx of CAD, or current smoker): No Aspirin Use in the Past 7 Days: No Severe Angina (>/= episodes in 24 hours): No EKG ST Changes >/= 0.5mm: No Positive Cardiac Marker: Yes CHIKIS Risk Stratification Score: 1 CHIKIS % Risk: 5% Risk Charges/Coding Visit Charges Inpatient E&M: 54037 Init Hosp L3 Objective Data Vital Signs: Vital Signs Temp Pulse Resp BP Pulse Ox O2 Del Method O2 Flow Rate 97.6 F L 63 20 H 96/66 92 Room Air 2 12/27/23 06:00 12/27/23 07:02 12/27/23 07:02 12/27/23 07:00 12/27/23 07:02 12/27/23 07:02 12/27/23 04:27 FiO2 24 12/27/23 04:48 Oxygen Flow Rate (L/min) 2 Oxygen Delivery Method Room Air Weight: 295 lb 3.183 oz Body Mass Index (BMI) 57.9 Intake & Output: Intake and Output for Last 24 Hours 12/25/23 12/26/23 12/27/23 23:59 23:59 23:59 Intake Total 12.25 / 315.25 701.5 / 701.5 Output Total 1725 / 1725 Balance 12.25 / -134.75 -1023.5 / -1023.5 Lab / Micro Data Attestation: I reviewed the patient's lab results. 12/27/23 06:00 12/27/23 06:00 Labs: Laboratory Results - last 24 hr 12/26/23 18:00: WBC 11.8 H, RBC 4.44, Hgb 14.3, Hct 45.6, MCV 102.7 H, MCH 32.2 H, MCHC 31.4 L D, RDW Std Deviation 50.9 H, RDW Coeff of Denzel 13.4, Plt Count 163, MPV 11.1, Immature Gran % (Auto) 0.600, Neut % (Auto) 68.2, Lymph % (Auto) 19.1, [place] % (Auto) 10.5 H, Eos % (Auto) 1.1, Baso % (Auto) 0.5, Absolute Neuts (auto) 8.0 H, Absolute Lymphs (auto) 2.25, Nucleated RBC % 0.2, Sodium 140, Potassium 5.4 H, Chloride 108 H, Carbon Dioxide 30.0, Anion Gap 3 L, BUN 30 H, Creatinine 0.91, Estim Creat Clear Calc 104.50, Est GFR (MDRD) Af Amer 87, Est GFR (MDRD) Non-Af 72, BUN/Creatinine Ratio 32.8 H, Glucose 99, Lactic Acid 1.3, Calcium 8.6, Magnesium 2.0, Total Bilirubin 0.30, AST 69 H, ALT 65 H, Alkaline Phosphatase 101, Troponin I High Sens 771 H*, B-Natriuretic Peptide 1051.3 H, Total Protein 6.8, Albumin 3.1 L, Globulin 3.7, Albumin/Globulin Ratio 0.8 L 12/26/23 18:05: POC Glucose 73 L 12/26/23 19:50: PT 14.0, INR 1.1, APTT 25.0 12/26/23 20:50: Procalcitonin 0.12 H 12/27/23 01:20: APTT 95.2 H* 12/27/23 06:00: WBC 10.9, RBC 3.84 L, Hgb 12.2, Hct 39.7, MCV 103.4 H, MCH 31.8, MCHC 30.7 L, RDW Std Deviation 50.4 H, RDW Coeff of Denzel 13.4, Plt Count 135 L, MPV 10.9, Immature Gran % (Auto) 0.600, Neut % (Auto) 56.7, Lymph % (Auto) 28.1, [place] % (Auto) 10.6 H, Eos % (Auto) 3.5, Baso % (Auto) 0.5, Absolute Neuts (auto) 6.2, Absolute Lymphs (auto) 3.05, Nucleated RBC % 0, Sodium 141, Potassium 4.1, Chloride 106, Carbon Dioxide 33.0 H, Anion Gap 1 L, BUN 22 H, Creatinine 0.54 L, Estim Creat Clear Calc 175.01, Est GFR (MDRD) Af Amer 161, Est GFR (MDRD) Non-Af 133, BUN/Creatinine Ratio 41.0 H, Glucose 118 H, Calcium 8.1 L, Total Bilirubin 0.30, AST 76 H, ALT 92 H, Alkaline Phosphatase 92, Total Protein 6.2 L, Albumin 2.8 L, Globulin 3.4, Albumin/Globulin Ratio 0.8 L, Triglycerides 63, Cholesterol 112, LDL Cholesterol 47, VLDL Cholesterol 13, HDL Cholesterol 52, TSH 2.840 12/27/23 09:00: APTT 47.5 H, Troponin I High Sens 256 H* Micro: Microbiology 12/26/23 18:08 Mucosa - Nose SARS-CoV-2, Influenza & RSV (PCR) - Final ABG Data ABG results: ABG 12/26/23 18:35 Specimen Type KIMBERLY Sample Site Not entered O2 % 2.0 VBG pH 7.25 L VBG pO2 28 VBG HCO3 30 H VBG Total CO2 32 VBG O2 Sat (Calc) 42 L VBG Base Excess 3 POC Mix VBG pCO2 Pt Tmp 68.2 H O2 Delivery Device Cannula Rhythm Strip Rhythm Strip: Sinus Rhythm Rate: 70 Ectopy: None Cardiology Labs/Tests 12/26/23 18:00: WBC 11.8 H, RBC 4.44, Hgb 14.3, Hct 45.6, MCV 102.7 H, MCH 32.2 H, MCHC 31.4 L D, Plt Count 163, MPV 11.1, Immature Gran % (Auto) 0.600, Neut % (Auto) 68.2, Lymph % (Auto) 19.1, [place] % (Auto) 10.5 H, Eos % (Auto) 1.1, Baso % (Auto) 0.5, Absolute Neuts (auto) 8.0 H, Nucleated RBC % 0.2, Sodium 140, Potassium 5.4 H, Chloride 108 H, Carbon Dioxide 30.0, Anion Gap 3 L, BUN 30 H, Creatinine 0.91, Est GFR (MDRD) Af Amer 87, Est GFR (MDRD) Non-Af 72, BUN/Creatinine Ratio 32.8 H, Glucose 99, Lactic Acid 1.3, Calcium 8.6, Magnesium 2.0, Total Bilirubin 0.30, B-Natriuretic Peptide 1051.3 H 12/26/23 18:35: VBG pH 7.25 L, VBG pO2 28, VBG HCO3 30 H, VBG O2 Sat (Calc) 42 L, VBG Base Excess 3 12/26/23 19:50: PT 14.0, INR 1.1, APTT 25.0 12/27/23 01:20: APTT 95.2 H* 12/27/23 06:00: WBC 10.9, RBC 3.84 L, Hgb 12.2, Hct 39.7, MCV 103.4 H, MCH 31.8, MCHC 30.7 L, Plt Count 135 L, MPV 10.9, Immature Gran % (Auto) 0.600, Neut % (Auto) 56.7, Lymph % (Auto) 28.1, [place] % (Auto) 10.6 H, Eos % (Auto) 3.5, Baso % (Auto) 0.5, Absolute Neuts (auto) 6.2, Nucleated RBC % 0, Sodium 141, Potassium 4.1, Chloride 106, Carbon Dioxide 33.0 H, Anion Gap 1 L, BUN 22 H, Creatinine 0.54 L, Est GFR (MDRD) Af Amer 161, Est GFR (MDRD) Non-Af 133, BUN/Creatinine Ratio 41.0 H, Glucose 118 H, Calcium 8.1 L, Total Bilirubin 0.30, Triglycerides 63, Cholesterol 112, LDL Cholesterol 47, VLDL Cholesterol 13, HDL Cholesterol 52 12/27/23 09:00: APTT 47.5 H Rhythm: EKG: ECHO: Stress Test: Cardiac Cath: PCI: CT Surgery: Holter monitor: EPS: PPM: CXR: Chest CT Scan: Radiography Diagnostic Testing: Radiology Impression Chest X-Ray 12/26/23 18:30 IMPRESSION: Probable congestive failure. Cannot definitively exclude underlying pneumonia Electronically Signed: Sathish Ordaz MD at 18:53 EDT ,
--- NOTE | 2023-12-27 10:49 | PN_ITS ---
Subjective Subjective Patient seen and examined. She had no active complaints. She is on room air. Review of systems is otherwise negative. Cardiology is on board. Objective Data Objective Data Vital Signs: Vital Signs Temp Pulse Resp BP Pulse Ox O2 Del Method O2 Flow Rate 97.6 F L 63 20 H 96/66 92 Room Air 2 12/27/23 06:00 12/27/23 07:02 12/27/23 07:02 12/27/23 07:00 12/27/23 07:02 12/27/23 07:02 12/27/23 04:27 FiO2 24 12/27/23 04:48 Oxygen Flow Rate (L/min) 2 Oxygen Delivery Method Room Air Weight: 295 lb 3.183 oz Body Mass Index (BMI) 57.9 Intake & Output: Intake and Output for Last 24 Hours 12/25/23 12/26/23 12/27/23 23:59 23:59 23:59 Intake Total 12.25 / 315.25 701.5 / 701.5 Output Total 1725 / 1725 Balance 12.25 / -134.75 -1023.5 / -1023.5 Lab / Micro Data 12/27/23 06:00 12/27/23 06:00 Labs: Laboratory Results - last 24 hr 12/26/23 18:00: WBC 11.8 H, RBC 4.44, Hgb 14.3, Hct 45.6, MCV 102.7 H, MCH 32.2 H, MCHC 31.4 L D, RDW Std Deviation 50.9 H, RDW Coeff of Denzel 13.4, Plt Count 163, MPV 11.1, Immature Gran % (Auto) 0.600, Neut % (Auto) 68.2, Lymph % (Auto) 19.1, [place] % (Auto) 10.5 H, Eos % (Auto) 1.1, Baso % (Auto) 0.5, Absolute Neuts (auto) 8.0 H, Absolute Lymphs (auto) 2.25, Nucleated RBC % 0.2, Sodium 140, P otassium 5.4 H, Chloride 108 H, Carbon Dioxide 30.0, Anion Gap 3 L, BUN 30 H, Creatinine 0.91, Estim Creat Clear Calc 104.50, Est GFR (MDRD) Af Amer 87, Est GFR (MDRD) Non-Af 72, BUN/Creatinine Ratio 32.8 H, Glucose 99, Lactic Acid 1.3, Calcium 8.6, Magnesium 2.0, Total Bilirubin 0.30, AST 69 H, ALT 65 H, Alkaline Phosphatase 101, Troponin I High Sens 771 H*, B-Natriuretic Peptide 1051.3 H, Total Protein 6.8, Albumin 3.1 L, Globulin 3.7, Albumin/Globulin Ratio 0.8 L 12/26/23 18:05: POC Glucose 73 L 12/26/23 19:50: PT 14.0, INR 1.1, APTT 25.0 12/26/23 20:50: Procalcitonin 0.12 H 12/27/23 01:20: APTT 95.2 H* 12/27/23 06:00: WBC 10.9, RBC 3.84 L, Hgb 12.2, Hct 39.7, MCV 103.4 H, MCH 31.8, MCHC 30.7 L, RDW Std Deviation 50.4 H, RDW Coeff of Denzel 13.4, Plt Count 135 L, MPV 10.9, Immature Gran % (Auto) 0.600, Neut % (Auto) 56.7, Lymph % (Auto) 28.1, [place] % (Auto) 10.6 H, Eos % (Auto) 3.5, Baso % (Auto) 0.5, Absolute Neuts (auto) 6.2, Absolute Lymphs (auto) 3.05, Nucleated RBC % 0, Sodium 141, Potassium 4.1, Chloride 106, Carbon Dioxide 33.0 H, Anion Gap 1 L, BUN 22 H, Creatinine 0.54 L, Estim Creat Clear Calc 175.01, Est GFR (MDRD) Af Amer 161, Est GFR (MDRD) Non-Af 133, BUN/Creatinine Ratio 41.0 H, Glucose 118 H, Calcium 8.1 L, Total Bilirubin 0.30, AST 76 H, ALT 92 H, Alkaline Phosphatase 92, Total Protein 6.2 L, Albumin 2.8 L, Globulin 3.4, Albumin/Globulin Ratio 0.8 L, Triglycerides 63, Cholesterol 112, LDL Cholesterol 47, VLDL Cholesterol 13, HDL Cholesterol 52, TSH 2.840 12/27/23 09:00: APTT 47.5 H, Troponin I High Sens 256 H* Micro: Microbiology 12/26/23 18:08 Mucosa - Nose SARS-CoV-2, Influenza & RSV (PCR) - Final ABG Data ABG results: ABG 12/26/23 18:35 Specimen Type KIMBERLY Sample Site Not entered O2 % 2.0 VBG pH 7.25 L VBG pO2 28 VBG HCO3 30 H VBG Total CO2 32 VBG O2 Sat (Calc) 42 L VBG Base Excess 3 POC Mix VBG pCO2 Pt Tmp 68.2 H O2 Delivery Device Cannula Radiography Diagnostic Testing: Radiology Impression Chest X-Ray 12/26/23 18:30 IMPRESSION: Probable congestive failure. Cannot definitively exclude underlying pneumonia Electronically Signed: Sathish Ordaz MD at 18:53 EDT , Rhythm Strip Rhythm Strip: Sinus Rhythm Rate: 70 Ectopy: None Social Homelessness:: Sheltered (Lives in a halfway) Physical Exam Const alert, oriented x3 and no apparent distress Constitutional Narrative: super morbid obesity. General Appearance: cooperative HEENT normocephalic, head/scalp atraumatic and moist oral mucous membranes Eyes PERRL and EOMs intact bilaterally Lymph Lymphatic: no lymphadenopathy noted and no lymphedema noted Resp normal respiratory effort, normal air movement and clear to auscultation bilaterally Cardio regular rate, regular rhythm, S1 normal heart sound, S2 normal heart sound and no murmurs GI normal to inspection, nondistended, normoactive bowel sounds, soft to palpation, non-tender and non-distended Extremity normal capillary refill Extremity Narrative: bilateral lower extremity lymphedema General Extremity: no tenderness to palpation of joints or extremities Skin General Skin Exam: no breakdown Neuro CN's II-XII intact bilaterally, no focal motor deficits, no sensory deficits noted and deep tendon reflexes 2+ bilaterally Motor Exam: strength 5/5 throughout and general weakness Psych thought process normal and cooperative Appearance: appropriate Assessment & Plan Assessment/Plan (1) Non-ST elevated myocardial infarction (non-STEMI): (2) New onset of congestive heart failure: PLAN: Plan #Hypoxia due to new onset acute HF with unknown EF * Feels much better today. On room air now, off BIPAP * on IV lasix 40mg bid. Cardiology is on board * initial troponin done was 771, and trended down to 256. * 2D echo ordered and pending * on heparin drip due to nonstemi. This has not been discontinued per cardiology * BNP is 1051.3. * #Nonstemi * Initial troponin was >700 as stated. Troponins now trending downwards. * Was on heparin drip but this was discontinued by cardiology today as cardiology think this will respiratory related. * 2D echo ordered and pending. * On p.o. aspirin as well as metoprolol and high intensity statin. # COPD: * Not in exacerbation. Now off BiPAP. * Breathing treatments bronchodilators. * Titrate oxygen as needed to maintain saturation above 90% #Hypothyroidism: On Synthroid. TSH is 2.84 #Super morbid obesity: * BMI is 58. 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 complicates acute care, expected recovery and prognosis #Diarrhea: laregely resolved. Says she has not had diarrhea in 2 days. DC precautions. 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 start SQ lovenox * Charges/Coding Visit Charges Inpatient E&M: 56548 Subs Hosp L3
--- NOTE | 2023-12-27 12:10 | CASEMGMT ---
Social Work- SW met with pt who reports that she lives in a duplex. Pt reports that pt mother usually makes decisions/gives consent. Call to pt mom; message left. Pt reports no needs at this time, has had numerous visitors. GERMÁN Saldaña
[2023-12-27] MEDS: Enoxaparin 40 MG/0.4 ML Syringe SC (20:47)
[2023-12-27] MEDS: Ammonium Lactate 225 gm Bottle 1 APPLIC TOPICAL (20:49)
--- NOTE | 2023-12-27 23:31 | CPS ---
Pt refused bipap at this time
[2023-12-28] VITALS (17 sets, daily range): BP systolic 84–116; BP diastolic 57–86; PULSE 53–77; RESP 12–26; TEMP 36.3–36.6; O2SAT 94–100; BMI 56.4
[2023-12-28] MEDS: Levothyroxine 100 MCG Tablet PO (05:41)
[2023-12-28] MEDS: Dicyclomine 10 MG Capsule 20 MG PO ×3 (05:41→16:45)
[2023-12-28] MEDS: 0.9% Saline Lock 10 ML Syringe IV (05:42)
[2023-12-28 06:11] LABS: Absolute Lymphocyte Count 2.41 X10^3/uL (0.83-4.51); Absolute Neutrophil Count 6.5 X10^3/uL (2.0-7.7); Basophil# 0.04 X10^3/uL; Basophil% 0.4 % (0-1); Eosinophil# 0.34 X10^3/uL; Eosinophils% 3.3 % (0-5); Hematocrit 37.8 % (37-47); Hemoglobin 11.8 g/dL (12.0-15.0); Lymphocyte # 2.41 X10^3/ul (0.83-4.51); Lymphocyte % 23.1 % (19-41); Mean Corp Hgb Conc 31.2 g/dL (32-36); Mean Corpuscular Hgb 32.5 pg (27.0-32.0); Mean Corpuscular Volume 104.1 fL (81-99); Mean Platelet Vol. 11.2 fl (6.2-12.0); Monocyte# 1.07 X10^3/uL; Monocyte% 10.2 % (0-10); NRBC Flagged by Analyzer 0 % (0-5); Neutrophil # 6.49 X10^3/uL (2.7-7.7); Platelet Count 142 K/mm3 (150-450); RBC Distribution Width CV 13.3 % (11.6-14.6); RBC Distribution Width SD 50.2 fl (35.1-43.9); Red Blood Count 3.63 M/mm3 (4.2-5.4); White Blood Count 10.5 K/mm3 (4.4-11.0)
[2023-12-28 06:23] LABS: Anion Gap 0 (5-15); BUN 21 mg/dL (7-18); BUN/Creat Ratio 34.3 RATIO (10-20); Calcium,Total 8.3 mg/dL (8.5-10.1); Chloride 104 mmol/L (98-107); Creatinine, Serum 0.61 mg/dL (0.55-1.02); EST Glomerular Filtration Rate 114 mL/min (>60); Est Glom Filt Rate - Afr Amer 138 mL/min (>60); Estimated Creatinine Clearance 152.78 ml/min; Glucose 93 mg/dL (74-106); Potassium 4.2 mmol/L (3.5-5.1); Sodium Level 139 mmol/L (136-145)
[2023-12-28] MEDS: Budesonide Respules 0.5 MG/2 ML AMPUL.NEB. INHALATION ×2 (07:18→19:37)
[2023-12-28] MEDS: Aspirin 81 MG TAB.CHEW PO (07:57)
[2023-12-28] MEDS: Enoxaparin 40 MG/0.4 ML Syringe SC ×2 (10:15→21:02)
[2023-12-28] MEDS: Carvedilol 3.125 MG TABLET PO ×2 (10:15→21:02)
[2023-12-28] MEDS: Fluticasone 0.05% 1 SPRAY NASAL.SRY NASAL (10:16)
[2023-12-28] MEDS: Furosemide 40 MG/4 ML Vial IV ×2 (10:16→16:45)
[2023-12-28] MEDS: Potassium Chloride Oral Tablet 10 MEQ PO (10:16)
[2023-12-28] MEDS: Nystatin Powder 15gm Bottle 1 APPLIC TOPICAL ×2 (10:16→21:03)
--- NOTE | 2023-12-28 10:51 | PN_ITS ---
Subjective Subjective Patient seen and examined. She had no complaints and had an uneventful night. Review of systems is otherwise negative. She is on 2L of oxygen. Objective Data Objective Data Vital Signs: Vital Signs Temp Pulse Resp BP Pulse Ox O2 Del Method O2 Flow Rate 97.4 F L 64 21 H 116/78 100 Nasal Cannula 2 12/28/23 09:00 12/28/23 09:00 12/28/23 09:00 12/28/23 09:00 12/28/23 09:00 12/28/23 09:00 12/28/23 09:00 FiO2 24 12/28/23 04:00 Oxygen Flow Rate (L/min) 2 Oxygen Delivery Method Nasal Cannula Weight: 289 lb 0.416 oz Body Mass Index (BMI) 56.4 Intake & Output: Intake and Output for Last 24 Hours 12/26/23 12/27/23 12/28/23 23:59 23:59 23:59 Intake Total 12.25 / 315.25 1247.77 / 1247.77 Output Total 5150 / 5150 300 / 300 Balance 12.25 / -134.75 -3902.23 / -3902.23 -300 / -300 Lab / Micro Data 12/28/23 05:45 12/28/23 05:45 Labs: Laboratory Results - last 24 hr 12/28/23 05:45: WBC 10.5, RBC 3.63 L, Hgb 11.8 L, Hct 37.8, MCV 104.1 H, MCH 32.5 H, MCHC 31.2 L, RDW Std Deviation 50.2 H, RDW Coeff of Denzel 13.3, Plt Count 142 L, MPV 11.2, Immature Gran % (Auto) 1.000 H, Neut % (Auto) 62.0, Lymph % (Auto) 23.1, [place] % (Auto) 10.2 H, Eos % (Auto) 3.3, Baso % (Auto) 0.4, Absolute Neuts (auto) 6.5, Absolute Lymphs (auto) 2.41, Nucleated RBC % 0, Sodium 139, Potassium 4.2, Chloride 104, Carbon Dioxide 35.0 H, Anion Gap 0 L, BUN 21 H, Creatinine 0.61, Estim Creat Clear Calc 152.78, Est GFR (MDRD) Af Amer 138, Est GFR (MDRD) Non-Af 114, BUN/Creatinine Ratio 34.3 H, Glucose 93, Calcium 8.3 L Micro: Microbiology 12/26/23 18:08 Mucosa - Nose SARS-CoV-2, Influenza & RSV (PCR) - Final Radiography Diagnostic Testing: Radiology Impression Echocardiogram 12/27/23 05:55 Interpretation Summary Prelim Normal LV size and function. Dilated RV with impaired function Moderate TR Pulmonary pressure of 67mmhg Ordering Physician: Cinthia Torres Performed By: Danii Andersen RDCS Rhythm Strip Rhythm Strip: Sinus Rhythm Rate: 70 Ectopy: None Social Homelessness:: Sheltered (Lives in a longterm) Physical Exam Const alert, oriented x3 and no apparent distress Constitutional Narrative: super morbid obesity. General Appearance: cooperative HEENT normocephalic, head/scalp atraumatic and moist oral mucous membranes Eyes PERRL and EOMs intact bilaterally Lymph Lymphatic: no lymphadenopathy noted and no lymphedema noted Resp Resp Narrative: diminished breath sounds bibasally, no wheezes or crackles. On 2L of oxygen by nasal canula. Cardio regular rate, regular rhythm, S1 normal heart sound, S2 normal heart sound and no murmurs GI normal to inspection, nondistended, normoactive bowel sounds, soft to palpation, non-tender and non-distended Extremity normal capillary refill Extremity Narrative: bilateral lower extremity lymphedema General Extremity: no tenderness to palpation of joints or extremities Skin General Skin Exam: no breakdown Neuro CN's II-XII intact bilaterally, no focal motor deficits, no sensory deficits noted and deep tendon reflexes 2+ bilaterally Motor Exam: strength 5/5 throughout and general weakness Psych thought process normal and cooperative Appearance: appropriate Assessment & Plan Assessment/Plan (1) Non-ST elevated myocardial infarction (non-STEMI): (2) New onset of congestive heart failure: PLAN: Plan #Hypoxia due to new onset acute HF with unknown EF * on 2L of oxygen * on IV lasix 40mg bid. Cardiology is on board * initial troponin done was 771, and trended down to 256. * 2D echo showed normal LV size and function, and dilated RV with impaired function, moderate tricuspid regurgitation and pulmonary pressure of 67mmhg. * on heparin drip due to nonstemi. This has been discontinued per cardiology * BNP is 1051.3. * #Nonstemi * Initial troponin was >700 as stated. Troponins now trending downwards. * Was on heparin drip but this was discontinued by cardiology today as cardiology think this will respiratory related. * 2D echo as above * On p.o. aspirin as well as metoprolol and high intensity statin. #Severe pulmonary hypertension * RVSP per 2D echo was 67mmHg. From echo in 2020, RVSP was 54mmhg with mild TR then. Echo now shows moderate tricuspid valve regurgitation * the shortness of breath may be due to worsening pulmonary hypertension. * will likely need oxygen on discharge. * # COPD: * Not in exacerbation. Now off BiPAP. * Breathing treatments with bronchodilators. * Titrate oxygen as needed to maintain saturation above 90% #Hypothyroidism: On Synthroid. TSH is 2.84 #Super morbid obesity: * BMI is 58. 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 complicates acute care, expected recovery and prognosis #Diarrhea: ediely resolved. Says she has not had diarrhea in 2 days. DC precautions. 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
[2023-12-28] MEDS: Atorvastatin Calcium 40 MG Tablet PO (21:02)
[2023-12-28] MEDS: Ammonium Lactate 225 gm Bottle 1 APPLIC TOPICAL (21:02)
--- NOTE | 2023-12-28 23:34 | CPS ---
Pt refuses bipap at this time
[2023-12-29] VITALS (10 sets, daily range): BP systolic 85–107; BP diastolic 66–90; PULSE 50–65; RESP 12–24; TEMP 36.2–36.5; O2SAT 93–99; BMI 55.1
[2023-12-29 04:54] LABS: Absolute Lymphocyte Count 2.46 X10^3/uL (0.83-4.51); Absolute Neutrophil Count 7.4 X10^3/uL (2.0-7.7); Basophil# 0.05 X10^3/uL; Basophil% 0.4 % (0-1); Eosinophil# 0.31 X10^3/uL; Eosinophils% 2.7 % (0-5); Hemoglobin 11.2 g/dL (12.0-15.0); Lymphocyte # 2.46 X10^3/ul (0.83-4.51); Lymphocyte % 21.7 % (19-41); Mean Corp Hgb Conc 31.1 g/dL (32-36); Mean Corpuscular Hgb 31.9 pg (27.0-32.0); Mean Corpuscular Volume 102.6 fL (81-99); Mean Platelet Vol. 10.8 fl (6.2-12.0); Monocyte# 1.04 X10^3/uL; Monocyte% 9.2 % (0-10); NRBC Flagged by Analyzer 0 % (0-5); Neutrophil # 7.42 X10^3/uL (2.7-7.7); Neutrophil % 65.3 % (47-70); Platelet Count 154 K/mm3 (150-450); RBC Distribution Width CV 13.4 % (11.6-14.6); RBC Distribution Width SD 49.7 fl (35.1-43.9); Red Blood Count 3.51 M/mm3 (4.2-5.4); White Blood Count 11.4 K/mm3 (4.4-11.0)
[2023-12-29 05:15] LABS: Anion Gap 0 (5-15); BUN 19 mg/dL (7-18); BUN/Creat Ratio 33.2 RATIO (10-20); Calcium,Total 8.2 mg/dL (8.5-10.1); Chloride 103 mmol/L (98-107); Creatinine, Serum 0.57 mg/dL (0.55-1.02); EST Glomerular Filtration Rate 123 mL/min (>60); Est Glom Filt Rate - Afr Amer 149 mL/min (>60); Glucose 88 mg/dL (74-106); Sodium Level 140 mmol/L (136-145)
[2023-12-29] MEDS: Dicyclomine 10 MG Capsule 20 MG PO ×3 (05:38→15:59)
[2023-12-29] MEDS: 0.9% Saline Lock 10 ML Syringe IV (05:38)
[2023-12-29] MEDS: Levothyroxine 100 MCG Tablet PO (05:39)
[2023-12-29] MEDS: Budesonide Respules 0.5 MG/2 ML AMPUL.NEB. INHALATION ×2 (07:00→19:46)
--- NOTE | 2023-12-29 07:50 | PCM.PN.HOSP ---
Reason for Visit Reason for Visit: Diagnoses Morbid (severe) obesity due to excess calories (12/26/23) Non-ST elevation (NSTEMI) myocardial infarction (12/26/23) Heart failure, unspecified (12/26/23) Acute respiratory failure with hypoxia (12/26/23) Acute respiratory failure with hypercapnia (12/26/23) Other specified abnormal findings of blood chemistry (12/26/23) Abnormal electrocardiogram [ECG] [EKG] (12/26/23) Body mass index [BMI] 40.0-44.9, adult (12/26/23) Subjective Subjective Doesn't feel well. Objective Data Objective Data Vital Signs: Vital Signs Temp Pulse Resp BP Pulse Ox O2 Del Method O2 Flow Rate 36.5 C L 54 L 19 H 97/77 96 Room Air 2 12/29/23 02:35 12/29/23 07:01 12/29/23 07:01 12/29/23 02:35 12/29/23 07:01 12/29/23 07:01 12/28/23 20:04 FiO2 24 12/29/23 04:28 Oxygen Flow Rate (L/min) 2 Oxygen Delivery Method Room Air Weight: 127.5 kg Body Mass Index (BMI) 55.1 Intake & Output: Intake and Output for Last 24 Hours 12/27/23 12/28/23 12/29/23 23:59 23:59 23:59 Intake Total 1247.77 / 1247.77 240 / 240 Output Total 5150 / 5150 4600 / 4600 250 / 250 Balance -3902.23 / -3902.23 -4360 / -4360 -250 / -250 Lab / Micro Data 12/29/23 04:45 12/29/23 04:45 Labs: Laboratory Results - last 24 hr 12/29/23 04:45: WBC 11.4 H, RBC 3.51 L, Hgb 11.2 L, Hct 36.0 L, MCV 102.6 H, MCH 31.9, MCHC 31.1 L, RDW Std Deviation 49.7 H, RDW Coeff of Denzel 13.4, Plt Count 154, MPV 10.8, Immature Gran % (Auto) 0.700, Neut % (Auto) 65.3, Lymph % (Auto) 21.7, [place] % (Auto) 9.2, Eos % (Auto) 2.7, Baso % (Auto) 0.4, Absolute Neuts (auto) 7.4, Absolute Lymphs (auto) 2.46, Nucleated RBC % 0, Sodium 140, Potassium 4.0, Chloride 103, Carbon Dioxide 38.0 H, Anion Gap 0 L, BUN 19 H, Creatinine 0.57, Estim Creat Clear Calc 163.50, Est GFR (MDRD) Af Amer 149, Est GFR (MDRD) Non-Af 123, BUN/Creatinine Ratio 33.2 H, Glucose 88, Calcium 8.2 L Micro: Microbiology 12/26/23 18:08 Mucosa - Nose SARS-CoV-2, Influenza & RSV (PCR) - Final Rhythm Strip Rhythm Strip: Sinus Rhythm Rate: 70 Ectopy: None Social Homelessness:: Sheltered (Lives in a prison) Physical Exam Const alert and no apparent distress HEENT head/scalp atraumatic and moist oral mucous membranes Resp normal respiratory effort, no retractions, no use of accessory muscles and clear to auscultation bilaterally Cardio regular rate, regular rhythm, S1 normal heart sound and S2 normal heart sound GI normal to inspection, nondistended, normoactive bowel sounds, soft to palpation, non-tender and non-distended Extremity General Extremity: edema bilateral lower extremity Details: moderate Neuro Sensorium / Orientation: awake and alert Psych Psych Narrative: flat affect. Assessment & Plan Assessment/Plan (1) Non-ST elevated myocardial infarction (non-STEMI): (2) New onset of congestive heart failure: PLAN: Plan Acute HFpEF exacerbation: unknown type. on IV furosemide, carvedilol (3.125 BID) 2d echo on the showed normal EF, dilated RV with impair function, moderate TR. pulm pressure of 67mmHg. D-dimer elevated, but CTA chest negative for PE. NSTEMI: trops 771 to 256 was on heparin gtt, subsequently taken off. cardiology following. continue ASA, atorvastatin, Pulmonary HTN unclear type. (suspect group 2 or 3) check D-dimer Chronic conditions: COPD: stable hypothyroidism: on levothyroxine obesity class III: complicates care and recovery. Prader-Willi syndrome: Follow-up on outpatient basis with her music publisher DACIA: on CPAP. Recommend follow up with pulmonary to see adjustments would be necessary or if she would be a candidate for a BiPAP. VTE prophylaxis: LMWH DW patient's cousin at bedside. Charges/Coding Visit Charges Inpatient E&M: 41714 Subs Hosp L2
[2023-12-29] MEDS: Aspirin 81 MG TAB.CHEW PO (08:49)
[2023-12-29 09:32] LABS: D-Dimer Quantitative (DVT/PE) 2.44 FEU/ug/m (0.27-0.49)
--- NOTE | 2023-12-29 09:39 | CT_ITS ---
STUDY: CTA CHEST REASON FOR EXAM: Female, 43 years old. Atypical chest pain, diaphoresis RADIATION DOSAGE (If Supplied By Facility): CTDIvol = ( 28.2 ) mGy, DLP = ( 622.28 ) mGycm TECHNIQUE: The examination was performed with the intravenous administration of IV 100mL Isovue-370. Post-processing of the angiographic images was performed, with multiplanar reformation and 3D reconstruction. Individualized dose optimization techniques were used for this CT. COMPARISON: None. FINDINGS: Normal enhancement of the main pulmonary artery and right and left pulmonary arteries. Normal enhancement of the bilateral peripheral pulmonary arteries. There is no demonstrated pulmonary embolism. Normal thoracic aorta and visualized great vessels. There is no demonstrated aortic dissection. Normal heart and pericardium. Normal mediastinum. Normal hilar regions. There is peribronchial thickening. The lungs are well expanded. Patchy opacifications suggest mild inflammation or pulmonary vascular congestion. Follow-up recommended to assure resolution. Normal pleura. Normal chest wall structures. There are degenerative changes of thoracic spine. Limited cuts through the upper abdomen show diffuse enlargement of the liver with fatty infiltration. CT/CTA Chest W/WO Contrast IMPRESSION: No demonstrated PE, or thoracic aortic aneurysm or dissection Patchy opacifications in both lung perez suggest pneumonitis or pulmonary vascular congestion. Follow-up recommended to assure resolution No suspicious adenopathy Fatty liver Electronically Signed: Juan Pablo Wallace MD at 10:57 EDT ,
--- NOTE | 2023-12-29 11:02 | CASEMGMT ---
Addendum entered by Sally Condon 12/29/23 12:05: Keerthi Morfin at the Board of was contacted and she confirmed that patients correction staff will be able to provide ADL assistance at time of discharge. She requested that the Nurse Wheel Truer for the correction be contacted for discharge planning, Shaunna Jose Maria [phone]. Sally Condon, SUBMARINE ADVISORY TEAM WATCH OFFICER, BOX TRUCK WASHER Original Note: Social Work This SW spoke with patients mother regarding discharge planning when patient is able. Mother states that patient lives in a correction with one other person. Mother states that house has a ramp and that staff are able to assist with all ADLs should patient require hands on assistance at time of discharge, at this time there are no other resources that will be needed. Plan: Return to [facility] with support of correction staff.
[2023-12-29] MEDS: Carvedilol 3.125 MG TABLET PO ×2 (11:25→22:51)
[2023-12-29] MEDS: Potassium Chloride Oral Tablet 10 MEQ PO (11:25)
[2023-12-29] MEDS: Enoxaparin 40 MG/0.4 ML Syringe SC ×2 (11:25→22:52)
[2023-12-29] MEDS: Fluticasone 0.05% 1 SPRAY NASAL.SRY NASAL (11:25)
[2023-12-29] MEDS: Furosemide 40 MG/4 ML Vial IV ×2 (11:26→18:17)
[2023-12-29] MEDS: Nystatin Powder 15gm Bottle 1 APPLIC TOPICAL ×2 (11:26→22:53)
--- NOTE | 2023-12-29 11:46 | CHAPLAIN ---
Type of Pastoral Visit _x__ Initial Visit ___ Follow-up Visit ___ On-call Visit ___ General Patient Visit ___ Spiritual Assessment ___ Family Conference ___ Bereavement ___ Rapid Response ___ Code Blue ___ Other (describe below) Pastoral Care Referral From _x__ Patient ___ Family ___ Nurse ___ Physician ___ Historic Clothing And Costume Maker ___ Distribution Sales Representative ___ Other (describe below) Sacrament/Intervention _x__ Active listening ___ Anointing ___ Gnosticism ___ Bereavement ___ Communion ___ Susan exploration ___ ___ Life review _x__ Prayer ___ Reconciliation ___ Sacrament of Sick _x__ Supportive presence ___ Wedding ___ Other (describe below) Pastoral Comments patient is awake and is able to speak concerning her health and her requests; pt lists off the several health matters and asks for prayer for healing and mending in her body; pt has a local evangelical connection; prayer and presence given
[2023-12-29] MEDS: Ammonium Lactate 225 gm Bottle 1 APPLIC TOPICAL (22:48)
[2023-12-29] MEDS: Atorvastatin Calcium 40 MG Tablet PO (22:51)
[2023-12-30] VITALS (10 sets, daily range): BP systolic 93–107; BP diastolic 63–75; PULSE 46–68; RESP 16–29; TEMP 36.2–36.6; O2SAT 92–100; BMI 54.6
[2023-12-30] MEDS: Levothyroxine 100 MCG Tablet PO (04:54)
[2023-12-30] MEDS: Dicyclomine 10 MG Capsule 20 MG PO ×3 (04:54→16:18)
[2023-12-30 05:17] LABS: Absolute Lymphocyte Count 2.42 X10^3/uL (0.83-4.51); Absolute Neutrophil Count 7.5 X10^3/uL (2.0-7.7); Basophil# 0.05 X10^3/uL; Basophil% 0.4 % (0-1); Eosinophil# 0.41 X10^3/uL; Eosinophils% 3.5 % (0-5); Hematocrit 38.5 % (37-47); Hemoglobin 12.1 g/dL (12.0-15.0); Lymphocyte # 2.42 X10^3/ul (0.83-4.51); Lymphocyte % 20.9 % (19-41); Mean Corp Hgb Conc 31.4 g/dL (32-36); Mean Corpuscular Hgb 31.8 pg (27.0-32.0); Mean Corpuscular Volume 101.3 fL (81-99); Mean Platelet Vol. 10.8 fl (6.2-12.0); Monocyte% 9.5 % (0-10); NRBC Flagged by Analyzer 0 % (0-5); Neutrophil # 7.52 X10^3/uL (2.7-7.7); Neutrophil % 65.1 % (47-70); Platelet Count 177 K/mm3 (150-450); RBC Distribution Width CV 13.4 % (11.6-14.6); RBC Distribution Width SD 49.7 fl (35.1-43.9); White Blood Count 11.6 K/mm3 (4.4-11.0)
[2023-12-30 05:31] LABS: Anion Gap 1 (5-15); BUN 21 mg/dL (7-18); Calcium,Total 8.6 mg/dL (8.5-10.1); Chloride 100 mmol/L (98-107); Creatinine, Serum 0.55 mg/dL (0.55-1.02); EST Glomerular Filtration Rate 128 mL/min (>60); Est Glom Filt Rate - Afr Amer 155 mL/min (>60); Estimated Creatinine Clearance 165.37 ml/min; Glucose 82 mg/dL (74-106); Potassium 4.5 mmol/L (3.5-5.1); Sodium Level 138 mmol/L (136-145)
[2023-12-30] MEDS: Budesonide Respules 0.5 MG/2 ML AMPUL.NEB. INHALATION ×2 (06:59→19:19)
--- NOTE | 2023-12-30 07:19 | PN.HOSP_ITS ---
Reason for Visit Reason for Visit: Diagnoses Morbid (severe) obesity due to excess calories (12/26/23) Non-ST elevation (NSTEMI) myocardial infarction (12/26/23) Heart failure, unspecified (12/26/23) Acute respiratory failure with hypoxia (12/26/23) Acute respiratory failure with hypercapnia (12/26/23) Other specified abnormal findings of blood chemistry (12/26/23) Abnormal electrocardiogram [ECG] [EKG] (12/26/23) Body mass index [BMI] 40.0-44.9, adult (12/26/23) Subjective Subjective Denies complaints. Objective Data Objective Data Vital Signs: Vital Signs Temp Pulse Resp BP Pulse Ox O2 Del Method O2 Flow Rate 36.2 C L 46 L 16 93/63 100 Nasal Cannula 2 12/30/23 04:00 12/30/23 07:00 12/30/23 07:00 12/30/23 04:00 12/30/23 07:00 12/30/23 07:00 12/30/23 07:00 FiO2 24 12/29/23 04:28 Oxygen Flow Rate (L/min) 2 Oxygen Delivery Method Nasal Cannula Weight: 126.3 kg Body Mass Index (BMI) 54.6 Intake & Output: Intake and Output for Last 24 Hours 12/28/23 12/29/23 12/30/23 23:59 23:59 23:59 Intake Total 240 / 240 480 / 480 Output Total 4600 / 4600 3550 / 4650 1500 / 1500 Balance -4360 / -4360 -3550 / -4410 -1020 / -1020 Lab / Micro Data 12/30/23 05:05 12/30/23 05:05 Labs: Laboratory Results - last 24 hr 12/29/23 09:05: D-Dimer Quant (PE/DVT) 2.44 H* 12/30/23 05:05: WBC 11.6 H, RBC 3.80 L, Hgb 12.1, Hct 38.5, MCV 101.3 H, MCH 31.8, MCHC 31.4 L, RDW Std Deviation 49.7 H, RDW Coeff of Denzel 13.4, Plt Count 177, MPV 10.8, Immature Gran % (Auto) 0.600, Neut % (Auto) 65.1, Lymph % (Auto) 20.9, [place] % (Auto) 9.5, Eos % (Auto) 3.5, Baso % (Auto) 0.4, Absolute Neuts (auto) 7.5, Absolute Lymphs (auto) 2.42, Nucleated RBC % 0, Sodium 138, Potassium 4.5, Chloride 100, Carbon Dioxide 37.0 H, Anion Gap 1 L, BUN 21 H, Creatinine 0.55, Estim Creat Clear Calc 165.37, Est GFR (MDRD) Af Amer 155, Est GFR (MDRD) Non-Af 128, BUN/Creatinine Ratio 38.0 H, Glucose 82, Calcium 8.6 Micro: Microbiology 12/26/23 18:08 Mucosa - Nose SARS-CoV-2, Influenza & RSV (PCR) - Final Radiography Diagnostic Testing: Radiology Impression Echocardiogram 12/27/23 05:55 Interpretation Summary Normal LV size and function. Dilated RV with impaired function Moderate TR Pulmonary pressure of 67mmhg Left ventricular systolic function is normal. The left ventricular ejection fraction is 55 %. Mildly dilated right ventricle. Ordering Physician: Cinthia Torres Performed By: Danii Andersen, [facility] Chest CTA 12/29/23 09:39 IMPRESSION: No demonstrated PE, or thoracic aortic aneurysm or dissection Patchy opacifications in both lung perez suggest pneumonitis or pulmonary vascular congestion. Follow-up recommended to assure resolution No suspicious adenopathy Fatty liver Electronically Signed: Juan Pablo Wallace MD at 10:57 EDT , Rhythm Strip Rhythm Strip: Sinus Rhythm Rate: 70 Ectopy: None Social Homelessness:: Sheltered (Lives in a intermediate) Physical Exam Const alert and no apparent distress Constitutional Narrative: lying in bed. afebrile. no respiratory distress. Resp normal respiratory effort, no retractions, no use of accessory muscles and clear to auscultation bilaterally Cardio regular rate, regular rhythm, S1 normal heart sound and S2 normal heart sound GI normal to inspection, nondistended, normoactive bowel sounds, soft to palpation, non-tender and non-distended Extremity normal to inspection and full ROM General Extremity: edema bilateral lower extremity Details: moderate Neuro Sensorium / Orientation: awake and alert Assessment & Plan Assessment/Plan (1) Non-ST elevated myocardial infarction (non-STEMI): (2) New onset of congestive heart failure: PLAN: Plan Acute HFpEF exacerbation: * unknown type. * on IV furosemide, carvedilol (3.125 BID) * 2d echo on the showed normal EF, dilated RV with impair function, moderate TR. pulm pressure of 67mmHg. * Weight down from 135 kg to 126 (weight back in October was 115) NSTEMI: * trops 771 to 256. Seen by cardiology, who feels that this is demand ischemia and has subsequently taken the patient off of was on heparin gtt * continue ASA, atorvastatin, Pulmonary HTN * unclear type. (suspect group 2 or 3 from underlying CHF and DACIA) * d-dimer elevated, but CTA chest negative for PE. Chronic conditions: * COPD: stable * hypothyroidism: on levothyroxine * obesity class III: complicates care and recovery. * Prader-Willi syndrome: complicates care and recovery. 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 Recommend follow up with pulmonary to see adjustments would be necessary or if she would be a candidate for a BiPAP. VTE prophylaxis: LMWH Clarification: patient is not homeless. She resides in a intermediate. Charges/Coding Visit Charges Inpatient E&M: 94384 Subs Hosp L2
[2023-12-30] MEDS: Aspirin 81 MG TAB.CHEW PO (09:33)
[2023-12-30] MEDS: Carvedilol 3.125 MG TABLET PO ×2 (09:33→22:18)
[2023-12-30] MEDS: Potassium Chloride Oral Tablet 10 MEQ PO (09:33)
[2023-12-30] MEDS: Fluticasone 0.05% 1 SPRAY NASAL.SRY NASAL (09:33)
[2023-12-30] MEDS: Enoxaparin 40 MG/0.4 ML Syringe SC ×2 (09:34→22:18)
[2023-12-30] MEDS: Furosemide 40 MG/4 ML Vial IV ×2 (09:35→17:24)
[2023-12-30] MEDS: Nystatin Powder 15gm Bottle 1 APPLIC TOPICAL ×2 (09:35→22:15)
--- NOTE | 2023-12-30 10:30 | CASEMGMT ---
Addendum entered by Lauren Avalos 12/30/23 14:52: Social Work SW received a message back from Jesica Morfin at [facility], she states pt already has PT through [facility], to just include orders for PT and any other home health needs on the d/c instructions, she and Shaunna Delarosa([phone]) will make sure that pt gets the services she needs. IESHA Trammell Addendum entered by Lauren Avalos 12/30/23 10:38: Social Work SW did call Jesica back w/[facility] to inquire should pt need home health, if they would arrange this or is it something we would arrange. Message left. IESHA Trammell Original Note: Social Work SW received a message from Jesica Morfin with [facility] asking that pt's discharge paperwork be faxed to when pt is ready to return, fax # is: [phone], phone #: [phone], [phone]. It does not appear pt is ready to return to the senior living today. IESHA Trammell
--- NOTE | 2023-12-30 11:50 | NURSING ---
again pt acting out on not getting what foods thought should be getting with meal trays. per shift supervisor film processing pt actively sobbing when was told couldnt have ice cream for snack. pt from [facility] and unkown how much or who controls meal preps. dr. kim text for poss diet change
--- NOTE | 2023-12-30 15:25 | NURSING ---
pt asleep and spo2 dropped to 86%. pt placed on bipap for nap till family comes in
[2023-12-30] MEDS: Senna/Docusate Sodium 1 Tablet 2 TABLET PO (16:44)
[2023-12-30] MEDS: Ammonium Lactate 225 gm Bottle 1 APPLIC TOPICAL (22:16)
[2023-12-30] MEDS: Atorvastatin Calcium 40 MG Tablet PO (22:17)
[2023-12-31] VITALS (9 sets, daily range): BP systolic 97–127; BP diastolic 72–99; PULSE 46–68; RESP 12–20; TEMP 36.2–36.7; O2SAT 90–100; BMI 54.1
[2023-12-31 05:43] LABS: Absolute Neutrophil Count 7.1 X10^3/uL (2.0-7.7); Basophil# 0.05 X10^3/uL; Basophil% 0.4 % (0-1); Eosinophil# 0.48 X10^3/uL; Eosinophils% 4.3 % (0-5); Hematocrit 39.8 % (37-47); Hemoglobin 12.7 g/dL (12.0-15.0); Lymphocyte % 21.3 % (19-41); Mean Corp Hgb Conc 31.9 g/dL (32-36); Mean Corpuscular Hgb 32.2 pg (27.0-32.0); Mean Platelet Vol. 10.5 fl (6.2-12.0); Monocyte# 1.14 X10^3/uL; Monocyte% 10.1 % (0-10); NRBC Flagged by Analyzer 0 % (0-5); Neutrophil # 7.11 X10^3/uL (2.7-7.7); Neutrophil % 63.1 % (47-70); Platelet Count 152 K/mm3 (150-450); RBC Distribution Width CV 13.2 % (11.6-14.6); RBC Distribution Width SD 49.2 fl (35.1-43.9); Red Blood Count 3.94 M/mm3 (4.2-5.4); White Blood Count 11.3 K/mm3 (4.4-11.0)
[2023-12-31 06:10] LABS: Anion Gap 2 (5-15); BUN 21 mg/dL (7-18); BUN/Creat Ratio 37.9 RATIO (10-20); Calcium,Total 8.7 mg/dL (8.5-10.1); Chloride 98 mmol/L (98-107); Creatinine, Serum 0.55 mg/dL (0.55-1.02); EST Glomerular Filtration Rate 128 mL/min (>60); Est Glom Filt Rate - Afr Amer 155 mL/min (>60); Estimated Creatinine Clearance 164.43 ml/min; Glucose 87 mg/dL (74-106); Potassium 4.3 mmol/L (3.5-5.1); Sodium Level 136 mmol/L (136-145)
[2023-12-31] MEDS: Levothyroxine 100 MCG Tablet PO (06:39)
[2023-12-31] MEDS: Dicyclomine 10 MG Capsule 20 MG PO ×3 (06:39→16:36)
--- NOTE | 2023-12-31 06:57 | PN.HOSP_ITS ---
Reason for Visit Reason for Visit: Diagnoses Morbid (severe) obesity due to excess calories (12/26/23) Non-ST elevation (NSTEMI) myocardial infarction (12/26/23) Heart failure, unspecified (12/26/23) Acute respiratory failure with hypoxia (12/26/23) Acute respiratory failure with hypercapnia (12/26/23) Other specified abnormal findings of blood chemistry (12/26/23) Abnormal electrocardiogram [ECG] [EKG] (12/26/23) Body mass index [BMI] 40.0-44.9, adult (12/26/23) Subjective Subjective Denies current complaints. Objective Data Objective Data Vital Signs: Vital Signs Temp Pulse Resp BP Pulse Ox O2 Del Method O2 Flow Rate 36.4 C L 46 L 14 125/91 H 97 Bi-pap 2 12/31/23 03:42 12/31/23 04:41 12/31/23 04:41 12/31/23 03:42 12/31/23 04:41 12/31/23 05:58 12/30/23 22:14 FiO2 24 12/31/23 04:41 Oxygen Flow Rate (L/min) 2 Oxygen Delivery Method Bi-pap Weight: 125.2 kg Body Mass Index (BMI) 54.1 Intake & Output: Intake and Output for Last 24 Hours 12/29/23 12/30/23 12/31/23 23:59 23:59 23:59 Intake Total 970 / 970 Output Total 3550 / 4650 3800 / 3800 400 / 400 Balance -3550 / -4410 -2830 / -2830 -400 / -400 Lab / Micro Data 12/31/23 05:34 12/31/23 05:34 Labs: Laboratory Results - last 24 hr 12/31/23 05:34: WBC 11.3 H, RBC 3.94 L, Hgb 12.7, Hct 39.8, MCV 101.0 H, MCH 32.2 H, MCHC 31.9 L, RDW Std Deviation 49.2 H, RDW Coeff of Denzel 13.2, Plt Count 152, MPV 10.5, Immature Gran % (Auto) 0.800, Neut % (Auto) 63.1, Lymph % (Auto) 21.3, [place] % (Auto) 10.1 H, Eos % (Auto) 4.3, Baso % (Auto) 0.4, Absolute Neuts (auto) 7.1, Absolute Lymphs (auto) 2.40, Nucleated RBC % 0, Sodium 136, Potassium 4.3, Chloride 98, Carbon Dioxide 36.0 H, Anion Gap 2 L, BUN 21 H, Creatinine 0.55, Estim Creat Clear Calc 164.43, Est GFR (MDRD) Af Amer 155, Est GFR (MDRD) Non-Af 128, BUN/Creatinine Ratio 37.9 H, Glucose 87, Calcium 8.7 Micro: Microbiology 12/26/23 18:08 Mucosa - Nose SARS-CoV-2, Influenza & RSV (PCR) - Final Rhythm Strip Rhythm Strip: Sinus Rhythm Rate: 70 Ectopy: None Social Homelessness:: Sheltered (Lives in a alf) Physical Exam Const alert and no apparent distress Constitutional Narrative: up in chair today. Off of oxygen. No respiratory distress. No conversational dyspnea. More alert and interactive today. Resp normal respiratory effort, no retractions, no use of accessory muscles and clear to auscultation bilaterally Cardio regular rate, regular rhythm, S1 normal heart sound and S2 normal heart sound GI normal to inspection, nondistended, normoactive bowel sounds, soft to palpation, non-tender and non-distended Extremity normal to inspection General Extremity: edema bilateral lower extremity Details: moderate Neuro Sensorium / Orientation: awake and alert Assessment & Plan Assessment/Plan (1) Non-ST elevated myocardial infarction (non-STEMI): (2) New onset of congestive heart failure: PLAN: Plan Acute HFpEF exacerbation: * on IV furosemide, carvedilol (3.125 BID) * 2d echo on the showed normal EF, dilated RV with impair function, moderate TR. pulm pressure of 67mmHg. * Weight down from 135 kg to 125 (weight back in October was 115) * increase furosemide from 40 IV bid to tid. NSTEMI: * trops 771 to 256. Seen by cardiology, who feels that this is demand ischemia and has subsequently taken the patient off of was on heparin gtt * continue ASA, atorvastatin Pulmonary HTN * unclear type. (suspect group 2 or 3 from underlying CHF and DACIA) * d-dimer elevated, but CTA chest negative for PE. * DW Dr. Ceja on 12/29: pt known to be non-compliant with CPAP. She will need to follow up in the office to see about getting set up for BiPAP. Chronic conditions: * COPD: stable * hypothyroidism: on levothyroxine * obesity class III: complicates care and recovery. * Prader-Willi syndrome: complicates care and recovery. 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 VTE prophylaxis: LMWH Clarification: patient is not homeless. She resides in a alf. Disposition: TBD. Hopefully ready for discharge in 1-2 days, back to alf. Charges/Coding Visit Charges Inpatient E&M: 09858 Subs Hosp L2
[2023-12-31] MEDS: Budesonide Respules 0.5 MG/2 ML AMPUL.NEB. INHALATION ×2 (07:12→19:31)
[2023-12-31] MEDS: Furosemide 40 MG/4 ML Vial IV ×3 (08:45→21:45)
[2023-12-31] MEDS: Aspirin 81 MG TAB.CHEW PO (08:46)
[2023-12-31] MEDS: Potassium Chloride Oral Tablet 10 MEQ PO (08:46)
[2023-12-31] MEDS: Nystatin Powder 15gm Bottle 1 APPLIC TOPICAL ×2 (08:46→21:45)
[2023-12-31] MEDS: Enoxaparin 40 MG/0.4 ML Syringe SC ×2 (08:46→21:45)
[2023-12-31] MEDS: Fluticasone 0.05% 1 SPRAY NASAL.SRY NASAL (08:46)
[2023-12-31] MEDS: Carvedilol 3.125 MG TABLET PO ×2 (11:46)
[2023-12-31] MEDS: Ammonium Lactate 225 gm Bottle 1 APPLIC TOPICAL (21:44)
[2023-12-31] MEDS: Atorvastatin Calcium 40 MG Tablet PO (21:45)
[2023-12-31] MEDS: Clotrimazole 1 APPLIC Tube TOPICAL (21:46)
[2023-12-31] MEDS: 0.9% Saline Lock 10 ML Syringe IV (21:49)
[2024-01-01] VITALS (8 sets, daily range): BP systolic 102–126; BP diastolic 57–85; PULSE 52–70; RESP 12–24; TEMP 36.5–36.7; O2SAT 91–98; BMI 53.1
[2024-01-01] MEDS: Furosemide 40 MG/4 ML Vial IV ×3 (06:02→21:23)
[2024-01-01] MEDS: Dicyclomine 10 MG Capsule 20 MG PO ×3 (06:02→16:38)
[2024-01-01] MEDS: Levothyroxine 100 MCG Tablet PO (06:03)
[2024-01-01] MEDS: 0.9% Saline Lock 10 ML Syringe IV ×2 (06:09→21:23)
[2024-01-01 06:35] LABS: Absolute Lymphocyte Count 2.82 X10^3/uL (0.83-4.51); Absolute Neutrophil Count 8.3 X10^3/uL (2.0-7.7); Basophil# 0.08 X10^3/uL; Basophil% 0.6 % (0-1); Eosinophil# 0.48 X10^3/uL; Eosinophils% 3.6 % (0-5); Hematocrit 41.3 % (37-47); Hemoglobin 13.2 g/dL (12.0-15.0); Lymphocyte # 2.82 X10^3/ul (0.83-4.51); Lymphocyte % 21.3 % (19-41); Mean Corpuscular Volume 100.2 fL (81-99); Mean Platelet Vol. 11.2 fl (6.2-12.0); Monocyte# 1.39 X10^3/uL; Monocyte% 10.5 % (0-10); NRBC Flagged by Analyzer 0 % (0-5); Neutrophil # 8.34 X10^3/uL (2.7-7.7); Neutrophil % 62.9 % (47-70); Platelet Count 175 K/mm3 (150-450); RBC Distribution Width CV 13.3 % (11.6-14.6); RBC Distribution Width SD 49.1 fl (35.1-43.9); Red Blood Count 4.12 M/mm3 (4.2-5.4); White Blood Count 13.3 K/mm3 (4.4-11.0)
[2024-01-01 06:58] LABS: Anion Gap 1 (5-15); BUN 24 mg/dL (7-18); BUN/Creat Ratio 36.1 RATIO (10-20); Calcium,Total 8.8 mg/dL (8.5-10.1); Chloride 100 mmol/L (98-107); Creatinine, Serum 0.66 mg/dL (0.55-1.02); EST Glomerular Filtration Rate 104 mL/min (>60); Est Glom Filt Rate - Afr Amer 126 mL/min (>60); Glucose 88 mg/dL (74-106); Sodium Level 140 mmol/L (136-145)
[2024-01-01] MEDS: Budesonide Respules 0.5 MG/2 ML AMPUL.NEB. INHALATION ×2 (07:10→19:44)
--- NOTE | 2024-01-01 09:01 | PCM.PN.HOSP ---
Reason for Visit Reason for Visit: Diagnoses Morbid (severe) obesity due to excess calories (12/26/23) Non-ST elevation (NSTEMI) myocardial infarction (12/26/23) Heart failure, unspecified (12/26/23) Acute respiratory failure with hypoxia (12/26/23) Acute respiratory failure with hypercapnia (12/26/23) Other specified abnormal findings of blood chemistry (12/26/23) Abnormal electrocardiogram [ECG] [EKG] (12/26/23) Body mass index [BMI] 40.0-44.9, adult (12/26/23) Subjective Subjective Still with LE edema. Objective Data Objective Data Vital Signs: Vital Signs Temp Pulse Resp BP Pulse Ox O2 Del Method O2 Flow Rate 36.6 C 62 18 120/85 H 96 Bi-pap 1 01/01/24 06:00 01/01/24 06:00 01/01/24 06:00 01/01/24 06:00 01/01/24 06:00 01/01/24 06:00 12/31/23 08:40 FiO2 24 01/01/24 02:12 Oxygen Flow Rate (L/min) 1 Oxygen Delivery Method Bi-pap Weight: 122.9 kg Body Mass Index (BMI) 53.1 Intake & Output: Intake and Output for Last 24 Hours 12/30/23 12/31/23 01/01/24 23:59 23:59 23:59 Intake Total 970 / 970 320 / 320 0 / 0 Output Total 3800 / 3800 825 / 825 850 / 850 Balance -2830 / -2830 -505 / -505 -850 / -850 Lab / Micro Data 01/01/24 06:16 01/01/24 06:16 Labs: Laboratory Results - last 24 hr 01/01/24 06:16: WBC 13.3 H, RBC 4.12 L, Hgb 13.2, Hct 41.3, MCV 100.2 H, MCH 32.0, MCHC 32.0, RDW Std Deviation 49.1 H, RDW Coeff of Denzel 13.3, Plt Count 175, MPV 11.2, Immature Gran % (Auto) 1.100 H, Neut % (Auto) 62.9, Lymph % (Auto) 21.3, [place] % (Auto) 10.5 H, Eos % (Auto) 3.6, Baso % (Auto) 0.6, Absolute Neuts (auto) 8.3 H, Absolute Lymphs (auto) 2.82, Nucleated RBC % 0, Sodium 140, Potassium 4.0, Chloride 100, Carbon Dioxide 39.0 H, Anion Gap 1 L, BUN 24 H, Creatinine 0.66, Estim Creat Clear Calc 135.40, Est GFR (MDRD) Af Amer 126, Est GFR (MDRD) Non-Af 104, BUN/Creatinine Ratio 36.1 H, Glucose 88, Calcium 8.8 Micro: Microbiology 12/26/23 18:08 Mucosa - Nose SARS-CoV-2, Influenza & RSV (PCR) - Final Rhythm Strip Rhythm Strip: Sinus Rhythm Rate: 70 Ectopy: None Social Homelessness:: Sheltered (Lives in a shelter) Physical Exam Const alert and no apparent distress Constitutional Narrative: up in bed, doing a word search. On room air. HEENT head/scalp atraumatic and moist oral mucous membranes Resp normal respiratory effort and no retractions Extremity General Extremity: edema bilateral lower extremity Details: moderate Neuro Sensorium / Orientation: awake and alert Psych affect normal Assessment & Plan Assessment/Plan (1) Non-ST elevated myocardial infarction (non-STEMI): (2) New onset of congestive heart failure: PLAN: Plan Acute HFpEF exacerbation: on IV furosemide, carvedilol (3.125 BID) 2d echo on the showed normal EF, dilated RV with impair function, moderate TR. pulm pressure of 67mmHg. Weight down from 135 kg to 122 (weight back in October was 115) furosemide 40 IV tid. NSTEMI: trops 771 to 256. Seen by cardiology, who feels that this is demand ischemia and has subsequently taken the patient off of was on heparin gtt continue ASA, atorvastatin Pulmonary HTN unclear type. (suspect group 2 or 3 from underlying CHF and DACIA) d-dimer elevated, but CTA chest negative for PE. JESSICA Ceja on 12/29: pt known to be non-compliant with CPAP. She will need to follow up in the office to see about getting set up for BiPAP. Chronic conditions: COPD: stable hypothyroidism: on levothyroxine obesity class III: complicates care and recovery. Prader-Willi syndrome: complicates care and recovery. 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 VTE prophylaxis: LMWH Clarification: patient is not homeless. She resides in a shelter. Disposition: TBD. Hopefully ready for discharge in 1-2 days, back to shelter with [facility] [place]. Charges/Coding Visit Charges Inpatient E&M: 84129 Subs Hosp L2
[2024-01-01] MEDS: Fluticasone 0.05% 1 SPRAY NASAL.SRY NASAL (10:28)
[2024-01-01] MEDS: Aspirin 81 MG TAB.CHEW PO (10:29)
[2024-01-01] MEDS: Potassium Chloride Oral Tablet 10 MEQ PO (10:29)
[2024-01-01] MEDS: Carvedilol 3.125 MG TABLET PO ×2 (10:29→21:21)
[2024-01-01] MEDS: Nystatin Powder 15gm Bottle 1 APPLIC TOPICAL ×2 (10:30→21:21)
[2024-01-01] MEDS: Enoxaparin 40 MG/0.4 ML Syringe SC ×2 (10:30→21:21)
[2024-01-01] MEDS: Atorvastatin Calcium 40 MG Tablet PO (21:21)
[2024-01-01] MEDS: Clotrimazole 1 APPLIC Tube TOPICAL (21:22)
[2024-01-01] MEDS: Ammonium Lactate 225 gm Bottle 1 APPLIC TOPICAL (21:22)
[2024-01-02] VITALS (8 sets, daily range): BP systolic 112–113; BP diastolic 75–83; PULSE 51–77; RESP 12–30; TEMP 36.7; O2SAT 92–97; BMI 53.1
[2024-01-02] MEDS: Levothyroxine 100 MCG Tablet PO (06:56)
[2024-01-02] MEDS: Dicyclomine 10 MG Capsule 20 MG PO ×2 (06:56→12:24)
[2024-01-02] MEDS: Furosemide 40 MG/4 ML Vial IV (06:57)
[2024-01-02] MEDS: 0.9% Saline Lock 10 ML Syringe IV (06:57)
[2024-01-02] MEDS: Budesonide Respules 0.5 MG/2 ML AMPUL.NEB. INHALATION (07:22)
[2024-01-02] MEDS: Carvedilol 3.125 MG TABLET PO (09:06)
[2024-01-02] MEDS: Aspirin 81 MG TAB.CHEW PO (09:06)
[2024-01-02] MEDS: Fluticasone 0.05% 1 SPRAY NASAL.SRY NASAL (09:07)
[2024-01-02] MEDS: Potassium Chloride Oral Tablet 10 MEQ PO (09:07)
[2024-01-02] MEDS: Enoxaparin 40 MG/0.4 ML Syringe SC (09:08)
--- NOTE | 2024-01-02 09:15 | PN.HOSP_ITS ---
Reason for Visit Reason for Visit: Diagnoses Morbid (severe) obesity due to excess calories (12/26/23) Non-ST elevation (NSTEMI) myocardial infarction (12/26/23) Heart failure, unspecified (12/26/23) Acute respiratory failure with hypoxia (12/26/23) Acute respiratory failure with hypercapnia (12/26/23) Other specified abnormal findings of blood chemistry (12/26/23) Abnormal electrocardiogram [ECG] [EKG] (12/26/23) Body mass index [BMI] 40.0-44.9, adult (12/26/23) Subjective Subjective Still with LE edema. PICC line no longer flushing. Objective Data Objective Data Vital Signs: Vital Signs Temp Pulse Resp BP Pulse Ox O2 Del Method O2 Flow Rate 36.7 C 66 16 112/83 H 97 Room Air 1 01/02/24 09:03 01/02/24 09:03 01/02/24 09:03 01/02/24 09:03 01/02/24 09:03 01/02/24 09:03 12/31/23 08:40 FiO2 24 01/02/24 05:27 Oxygen Flow Rate (L/min) 1 Oxygen Delivery Method Room Air Weight: 122.9 kg Body Mass Index (BMI) 53.1 Intake & Output: Intake and Output for Last 24 Hours 12/31/23 01/01/24 01/02/24 23:59 23:59 23:59 Intake Total 320 / 320 1040 / 1040 100 / 100 Output Total 825 / 825 3250 / 3250 350 / 350 Balance -505 / -505 -2210 / -2210 -250 / -250 Lab / Micro Data 01/01/24 06:16 01/01/24 06:16 Micro: Microbiology 12/26/23 18:08 Mucosa - Nose SARS-CoV-2, Influenza & RSV (PCR) - Final Rhythm Strip Rhythm Strip: Sinus Rhythm Rate: 70 Ectopy: None Social Homelessness:: Sheltered (Lives in a chcf) Physical Exam Const alert and no apparent distress HEENT head/scalp atraumatic and moist oral mucous membranes Resp normal respiratory effort and no retractions Extremity Extremity Narrative: edema LE. Neuro Sensorium / Orientation: awake and alert Assessment & Plan Assessment/Plan (1) Non-ST elevated myocardial infarction (non-STEMI): (2) New onset of congestive heart failure: PLAN: Plan Acute HFpEF exacerbation: * on IV furosemide, carvedilol (3.125 BID) * 2d echo on the showed normal EF, dilated RV with impair function, moderate TR. pulm pressure of 67mmHg. * Weight down from 135 kg to 122 (weight back in October was 115) * furosemide 40 IV tid. Will change to 40 BID upon discharge (was daily on admission) NSTEMI: * trops 771 to 256. Seen by cardiology, who feels that this is demand ischemia and has subsequently taken the patient off of was on heparin gtt * continue ASA, atorvastatin Pulmonary HTN * unclear type. (suspect group 2 or 3 from underlying CHF and DACIA) * d-dimer elevated, but CTA chest negative for PE. * DW Dr. Ceja on 12/29: pt known to be non-compliant with CPAP. She will need to follow up in the office to see about getting set up for BiPAP. Chronic conditions: * COPD: stable * hypothyroidism: on levothyroxine * obesity class III: complicates care and recovery. * Prader-Willi syndrome: complicates care and recovery. 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 VTE prophylaxis: LMWH Clarification: patient is not homeless. She resides in a [facility]. Disposition: Back to [facility].
--- NOTE | 2024-01-02 11:14 | CASEMGMT ---
Per physician patient will be discharged today. KE called the senior living's nurse, Shaunna Moise. KE let Shaunna know that patient will be returning today. Shaunna asked that the home health order and d/c instructions be sent to the home health agency. KE told Shaunna that KE will let her know as KE finds out more. Ruby LOCK
[2024-01-02 11:44] LABS: Bedside Glucose 86 mg/dL (74-106)
--- NOTE | 2024-01-02 12:42 | DS.PCM_ITS ---
Providers Date of Admission: 12/26/23 Primary Care Physician: Dr. Marilee Pérez MD Consultations 12/26/23 23:36 Consult: Cardiology Routine Consulting Provider: Greg Bond Reason for Consult: Chest Pain, HF, NSTEMI, EKG changes EMERGENT Consult: No Notified: Yes Date Notified: 12/26/23 Time Notified: 19:27 Method of Notification: ED Physician Initiated 12/28/23 12:05 Consult: Runner Out / Pulmonary Medicine Routine Consulting Provider: Intensivists/Pulmonary Med Reason for Consult: severe pulmonary hypertension EMERGENT Consult: No Notified: Yes Date Notified: 12/28/23 Time Notified: 12:06 Method of Notification: Verbal Comments:: COnsult is for Dr Ceja pls; she is his patient Reason For Visit: RF FAILURE HF EXACERBATION NSTEMI EKG CHANGES Diagnosis Discharge Diagnosis (1) Non-ST elevated myocardial infarction (non-STEMI): Status: Acute Code(s): I21.4 - Non-ST elevation (NSTEMI) myocardial infarction (2) New onset of congestive heart failure: Status: Acute Code(s): I50.9 - Heart failure, unspecified Plan Acute HFpEF exacerbation: * on IV furosemide, carvedilol (3.125 BID) * 2d echo on the showed normal EF, dilated RV with impair function, moderate TR. pulm pressure of 67mmHg. * Weight down from 135 kg to 122 (weight back in October was 115) * furosemide 40 IV tid. Will change to 40 BID upon discharge (was daily on admission) NSTEMI: * trops 771 to 256. Seen by cardiology, who feels that this is demand ischemia and has subsequently taken the patient off of was on heparin gtt * continue ASA, atorvastatin Pulmonary HTN * unclear type. (suspect group 2 or 3 from underlying CHF and DACIA) * d-dimer elevated, but CTA chest negative for PE. * DW Dr. Ceja on 12/29: pt known to be non-compliant with CPAP. She will need to follow up in the office to see about getting set up for BiPAP. Chronic conditions: * COPD: stable * hypothyroidism: on levothyroxine * obesity class III: complicates care and recovery. * Prader-Willi syndrome: complicates care and recovery. 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 VTE prophylaxis: LMWH Clarification: patient is not homeless. [facility]. Disposition: [facility] to [facility]. Medications at Discharge Home Medications ammonium lactate 12 % topical cream 1 applicatio topical DAILY 10/26/13 calcium 600 mg (as carbonate)-vitamin D3 10 mcg (400 unit) tablet 1 ea PO BID 10/26/13 omega-3 fatty acids-fish oil 300 mg-500 mg capsule 1 ea PO DAILY 10/26/13 epinephrine 0.3 mg/0.3 mL injection, auto-injector 0.3 mg IM X1 PRN Anaphylaxis 06/01/16 nystatin 100,000 unit/gram topical powder 1 applic topical BID 06/01/16 clotrimazole 1 % topical cream 1 applic topical BID 04/08/17 fluticasone propionate 50 mcg/actuation nasal spray,suspension 50 mcg intranasal ONCE 04/08/17 albuterol sulfate 90 mcg/actuation aerosol inhaler 2 puff inhalation Q6H PRN shortness of breath or wheezing 05/22/21 potassium chloride 10 mEq capsule,extended release 10 meq PO DAILY 05/22/21 norethindrone (contraceptive) 0.35 mg tablet (Arianna) 0.35 mg PO QDAY #84 tabs 06/02/23 dicyclomine 10 mg capsule 20 mg (2 x 10 mg) PO TIDAC #20 CAPSULES 12/23/23 diphenoxylate-atropine 2.5 mg-0.025 mg tablet (Lomotil) 1 tab PO Q6H PRN diarrhea #14 tabs 12/23/23 levothyroxine 100 mcg tablet 100 mcg PO DAILY 12/26/23 mometasone-formoterol HFA 100 mcg-5 mcg/actuation aerosol inhaler (Dulera) 2 inh inhalation BID 12/26/23 multivitamin-ferrous fumarate-folic acid 18 mg-400 mcg tablet (A Thru Z Advanced Formula) 1 tab PO DAILY 12/26/23 ondansetron 4 mg disintegrating tablet 4 mg PO Q8H PRN Nausea 12/26/23 aspirin 81 mg chewable tablet 81 mg PO BREAKFAST #0 tabs 01/02/24 carvedilol 3.125 mg tablet 3.125 mg PO BID #60 tabs 01/02/24 furosemide 40 mg tablet (Lasix) 40 mg PO BIDCM 5 days #60 tabs 01/02/24 lisinopril 5 mg tablet 5 mg PO DAILY #30 tabs 01/02/24 Hospital Course Procedures 2-D Echocardiogram and PICC line placement Summary of Care Provided Minutes Spent on Discharge: 32 Medical Records Data Homelessness:: Sheltered (Lives in a prison) Weight / BMI Weight Weight: 122.9 kg Body Mass Index (BMI) 53.1 ABG / Lab / Microbiology Data 01/01/24 06:16 01/01/24 06:16 Laboratory: Laboratory Results - last 24 hr 01/02/24 11:27: POC Glucose 86 Microbiology: Microbiology 12/26/23 18:08 Mucosa - Nose SARS-CoV-2, Influenza & RSV (PCR) - Final D/C Instructions Discharge Diet: 2000 mg Sodium Diet and - (1.8 liters fluid/day) Meaningful Use Info Meaningful Use Meaningful Use Diagnoses (Choose all that apply): CHF CHF TYLER/ARB ordered at discharge?: Yes Documented LVEF (%): 55 Ischemic Stroke Statin Dosing Therapy Reference: STATIN DOSE THERAPY REFERENCE: * Patients > 75 years receive moderate or high dose statin therapy. * Patients 75 years or YOUNGER should receive HIGH intensity statin dose unless contraindicated. You will be required to document reason for non-treatment if statin daily dose does not meet guidelines. HIGH DOSE STATIN THERAPY DAILY Atorvastatin > than or = to 40 mg Rosuvastatin > than or = to 20 mg Amlodipine + Atorvastatin > than or = to 2.5/40 mg Ezetimibe + Simvastatin 10/80 mg Simvastatin 80mg Discharge Plan Admission Admit Date/Time: 12/26/23 19:22 Primary Reason for Your Visit: CHF exacerbation. Attending Provider: Manuel Garay Primary Care Provider: Marilee Pérez Consulting Providers: Greg Bond; Cinthia Torres; Malorie Siegel; Yan Phelps; Dami Guerrero; Regino Bo; Praveen Cavazos; Mikey Hebert; Amilcar Romero; Yahaira Erwin; Fabián Walter; Jann Harrington; Luz Kimball; Mika Red; Dave Delarosa; Carter Alvarez; Brian Aguilar; Farhana Max; Merrill Michel; Sagar Garner Instructions Patient Instructions: Heart Failure Flare Up Signs, Heart Failure: Tracking Your Weight, Heart Failure Make Changes Diet, Heart Failure Care Discharge Orders/Prescriptions Prescriptions: New carvedilol 3.125 mg Tablet 3.125 mg PO BID Qty: 60 0RF aspirin 81 mg Tablet,Chewable 81 mg PO BREAKFAST Qty: 0 0RF lisinopril 5 mg tablet 5 mg PO DAILY Qty: 30 0RF Continued fluticasone propionate 50 mcg/actuation spray,suspension 50 mcg INTRANASAL ONCE clotrimazole 1 % cream 1 applic TOPICAL BID potassium chloride 10 mEq capsule, extended release 10 meq PO DAILY albuterol sulfate 90 mcg/actuation HFA aerosol inhaler 2 puff inhalation Q6H PRN (Reason: shortness of breath or wheezing) norethindrone (contraceptive) [Arianna] 0.35 mg tablet 0.35 mg PO QDAY Qty: 84 4RF ammonium lactate 140 GM cream 1 applicatio TOPICAL DAILY Patient Comments: skin health omega-3 fatty acids-fish oil 1 EACH capsule 1 ea PO DAILY Patient Comments: supplement calcium carbonate-vitamin D3 1 EACH tablet 1 ea PO BID Patient Comments: supplement nystatin 1 APPLIC bottle 1 applic TOPICAL BID epinephrine 0.3 MG syringe 0.3 mg IM X1 PRN (Reason: Anaphylaxis) dicyclomine 10 mg capsule 20 mg PO TIDAC Qty: 20 0RF diphenoxylate-atropine [Lomotil] 2.5-0.025 mg tablet 1 tab PO Q6H PRN (Reason: diarrhea) Qty: 14 0RF A Thru Z Advanced Formula 18-400 mg-mcg tablet 1 tab PO DAILY Dulera 100-5 mcg/actuation HFA aerosol inhaler 2 inh inhalation BID levothyroxine 100 mcg tablet 100 mcg PO DAILY ondansetron 4 mg tablet,disintegrating 4 mg PO Q8H PRN (Reason: Nausea) Changed furosemide [Lasix] 40 mg tablet 40 mg PO BIDCM 5 Days Qty: 60 0RF Referrals / Follow Up: Marilee Pérez MD [Primary Care Provider] - Within 2 Weeks Tung Ceja MD [Med Staff - Active Staff] - Within 2 Weeks Disposition Disposition (needs filled in before D/C Order can be placed): Home Health Service Charges/Coding Visit Charges Inpatient E&M: 66681 Disch Hosp >30min
--- NOTE | 2024-01-02 14:06 | CASEMGMT ---
Patient is ready for discharge. KE spoke with RN Shaunna Moise at the [facility] she asked if transport could be arranged for patient. KE told her that can be done. KE then went to patient's room and patient's mother was present. Patient's mom said she can transport patient back to the [facility]. KE called Shaunna and let her know. KE also faxed d/c summary and order to resume home health to [facility]. Plan: d/c back to [facility] with resumption of [facility] home health. Patient's mom will transport patient. Ruby Laughlin CEMENT PAVER ASHVIN
--- NOTE | 2024-01-02 15:24 | NURSING ---
Prompted to return home meds at discharge. Checked in ICU and PCU for bag of meds- there was none and no slip w/ pt's belongings. Pt's mother states that she is not expecting any meds to be returned. Pt DCd, told mother to call if we need to investigate further.
== END 2024-01-02 15:15 | disposition home health service (06) | DRG 291 ==
LOC: ED 20:29 → ICU 20:38 → PCU 12-31 16:17
PROVIDERS: Student in an Organized Health Care Education/Training Program; Admitting Provider Family Medicine; Emergency Provider Emergency Medicine; PCP Internal Medicine
DX: I50.31 Acute diastolic (congestive) heart failure (principal); J96.02 Acute respiratory failure with hypercapnia; J96.01 Acute respiratory failure with hypoxia; Z68.43 Body mass index [BMI] 50.0-59.9, adult; I24.89 Other forms of acute ischemic heart disease; Q87.11 Prader-Willi syndrome; I27.23 Pulmonary hypertension due to lung diseases and hypoxia; J44.9 Chronic obstructive pulmonary disease, unspecified; E03.9 Hypothyroidism, unspecified; G47.33 Obstructive sleep apnea (adult) (pediatric); E66.813 Obesity, class 3; Z91.198 Patient's noncompliance with other medical treatment and regimen for other reason; Z79.890 Hormone replacement therapy; Z79.51 Long term (current) use of inhaled steroids; Z79.82 Long term (current) use of aspirin; Z79.899 Other long term (current) drug therapy
CPT/HCPCS: 36569; 71046; 71275; 80048; 80053; 80061; 82803; 82962; 83605; 83735; 83880; 84145; 84443; 84484; 85025; 85379; 85610; 85730; 87631; 93005; 93306; 94002; 94003; 94640; 94668; 94762; 96360; 96361; 97116; 97163; 97166; 97530; 97535; 97802; 97803; 99283; 99285; J7030; Q9957; Q9967; A4216; C8929; J1940

== ENCOUNTER 2024-01-08 12:53 | Emergency (ER) | payer MEDICARE, MEDICAID, SELFPAY ==
[2024-01-08 12:55] VITALS: BP 138/80; PULSE 56; RESP 18; TEMP 36.5; O2SAT 100; BMI 53.4
[2024-01-08] MEDS: Furosemide 100 MG/10 ML Vial 60 MG IV (14:06)
[2024-01-08 14:19] LABS: Anion Gap 3 (5-15); BUN 20 mg/dL (7-18); BUN/Creat Ratio 34.5 RATIO (10-20); Calcium,Total 9.3 mg/dL (8.5-10.1); Chloride 106 mmol/L (98-107); Creatinine, Serum 0.58 mg/dL (0.55-1.02); EST Glomerular Filtration Rate 122 mL/min (>60); Est Glom Filt Rate - Afr Amer 147 mL/min (>60); Estimated Creatinine Clearance 155.04 ml/min; Glucose 78 mg/dL (74-106); Potassium 4.6 mmol/L (3.5-5.1); Sodium Level 141 mmol/L (136-145)
[2024-01-08 14:56] VITALS: BP 141/68; PULSE 58; RESP 18; TEMP 36.5; O2SAT 100
--- NOTE | 2024-01-08 15:06 | EX.ED.DYSGE1 ---
HPI History of Present Illness Chief Complaint: General Illness Informant: patient and other Narrative Narrative: 43-year-old female presenting to the emergency room with weight gain. Patient recent admission to the hospital with congestive heart failure. Echocardiogram showed mildly dilated right ventricle and right ventricular dysfunction. Preserved ejection fraction. She was discharged home on Lasix. Over the past several days she has had about a 10 pound gain weight. half-way staff note that the legs appear slightly more edematous than normal. She has not had any problems with urination. No cough shortness of breath. No fevers. Patient denied any chest pain. Recently had her Lasix increased from every other day to 40 mg daily. She was also placed on potassium supplementation. She is due to see her primary care doctor for hospital follow-up early next week. [facility] Medical History COPD (chronic obstructive pulmonary disease) HTN (hypertension) Hypothyroidism Morbid obesity with body mass index (BMI) greater than or equal to 50 DACIA treated with BiPAP Prader-Willi syndrome Home Medications ?Medication ?Instructions ?Recorded ?Last Taken ?Type ammonium lactate 12 % topical cream 1 applicatio topical DAILY 10/26/13 12/26/23 History calcium 600 mg (as 1 ea PO BID 10/26/13 12/26/23 History carbonate)-vitamin D3 10 mcg (400 unit) tablet omega-3 fatty acids-fish oil 300 1 ea PO DAILY 10/26/13 12/26/23 History mg-500 mg capsule epinephrine 0.3 mg/0.3 mL 0.3 mg IM X1 PRN Anaphylaxis 06/01/16 Unknown History injection, auto-injector nystatin 100,000 unit/gram topical 1 applic topical BID 06/01/16 12/26/23 History powder clotrimazole 1 % topical cream 1 applic topical BID 04/08/17 12/26/23 History fluticasone propionate 50 50 mcg intranasal ONCE 04/08/17 12/26/23 History mcg/actuation nasal spray,suspension albuterol sulfate 90 mcg/actuation 2 puff inhalation Q6H PRN 05/22/21 Unknown History aerosol inhaler shortness of breath or wheezing potassium chloride 10 mEq 10 meq PO DAILY 05/22/21 12/26/23 History capsule,extended release norethindrone (contraceptive) 0.35 0.35 mg PO QDAY #84 tabs 06/02/23 12/26/23 Rx mg tablet (Arianna) dicyclomine 10 mg capsule 20 mg (2 x 10 mg) PO TIDAC #20 12/23/23 12/26/23 Rx CAPSULES diphenoxylate-atropine 2.5 1 tab PO Q6H PRN diarrhea #14 tabs 12/23/23 Unknown Rx mg-0.025 mg tablet (Lomotil) levothyroxine 100 mcg tablet 100 mcg PO DAILY 12/26/23 12/26/23 History mometasone-formoterol HFA 100 2 inh inhalation BID 12/26/23 12/26/23 History mcg-5 mcg/actuation aerosol inhaler (Dulera) multivitamin-ferrous 1 tab PO DAILY 12/26/23 12/26/23 History fumarate-folic acid 18 mg-400 mcg tablet (A Thru Z Advanced Formula) ondansetron 4 mg disintegrating 4 mg PO Q8H PRN Nausea 12/26/23 12/26/23 History tablet aspirin 81 mg chewable tablet 81 mg PO BREAKFAST #0 tabs 01/02/24 Unknown Rx carvedilol 3.125 mg tablet 3.125 mg PO BID #60 tabs 01/02/24 Unknown Rx furosemide 40 mg tablet (Lasix) 40 mg PO BIDCM 5 days #60 tabs 01/02/24 Unknown Rx lisinopril 5 mg tablet 5 mg PO DAILY #30 tabs 01/02/24 Unknown Rx Allergy/AdvReac Type Severity Reaction Status Date / Time insect venom (insect bites) Allergy Intermediate Itching Verified 01/08/24 12:55 phenytoin sodium (From Allergy Unknown Verified 01/08/24 12:55 Dilantin) phenytoin sodium extended Allergy Unknown Verified 01/08/24 12:55 (From Dilantin) venom-honey bee (bee venom Allergy Unknown Verified 01/08/24 12:55 (honey bee)) Family History Grandmother Diabetes Heart disease Hypertension Mother Diabetes Grandfather Hypertension Father No problems noted. Surgical History History of tonsillectomy and adenoidectomy Social History household members: none housing: other details: half-way. Smoking Status: Never smoker alcohol intake: never substance use type: does not use caffeine: Yes frequency: daily seatbelt use: always do you feel safe at home: Yes additional social history: Louis Gimenez ROS ROS ED Constitutional Constitutional ED: Reports other Details: 10 pound weight gain ; Denies chills, fever(s) or weight loss Eyes Eyes: Denies change in vision or diplopia ENT ENT ED: Denies ear pain, rhinorrhea or sore throat Cardiovascular Cardiovascular: Denies chest pain, orthopnea, palpitations or racing heartbeat Respiratory/Chest Respiratory/Chest: Denies cough, dyspnea or orthopnea Gastrointestinal Gastrointestinal: Denies abdominal pain, diarrhea, nausea or vomiting Genitourinary Genitourinary ED: Denies dysuria, hematuria or urinary frequency Musculoskeletal Musculoskeletal: Denies arthralgias or myalgias Integumentary Denies abscess or rash Neurologic Neurologic: Denies headache(s) or weakness Psychiatric Psychiatric: Denies anxiety, depression, suicidal ideation or suicidal thoughts Endocrine Endocrinology: Denies polydipsia, polyphagia or polyuria Allergic/Immunologic Allergic/Immunologic ED: Denies mouth swelling, tongue swelling or urticaria EXAM Physical Exam Const Vital Signs: 01/08/24 12:55 01/08/24 14:05 01/08/24 14:56 Temperature 97.7 F L 97.7 F L Temperature Source Temporal Pulse Rate 56 L 58 L Respiratory Rate 18 18 Respiratory Effort Normal Non-Labored Blood Pressure 138/80 H 141/68 H Blood Pressure Mean 99 92 Pulse Ox 100 100 Oxygen Delivery Method Room Air Positive well nourished, well developed and obese General Appearance ED: well developed and NAD Nutritional Appearance: obese HEENT Reports normocephalic, head/scalp atraumatic and moist mucous membranes Eyes PERRL and EOMs intact bilaterally Neck no lymphadenopathy, supple and no JVD Resp normal respiratory effort and clear to auscultation bilaterally Cardio regular rate, regular rhythm and no murmurs GI normal to inspection, nondistended, normoactive bowel sounds and non-tender Palpation: soft Back/Spine no CVA tenderness and normal ROM Extremity General Extremety ED: Yes edema General Extremity: edema bilateral lower extremity Details: moderate Neuro oriented x3 and CN's II-XII intact bilaterally Sensorium / Orientation: alert Motor Exam: strength 5/5 throughout Psych mental status grossly normal Mood & Affect: Negative for depressed or tearful Skin no rashes or lesions noted and no wounds MDM MDM MDM Narrative Medical decision making narrative: Differential diagnosis includes lymphedema congestive heart failure exacerbation electrolyte abnormality renal dysfunction pleural effusion Lung sounds are clear she is 100% on room air. She does not have any dyspnea or chest pain. Check of her BMP shows a potassium of 4.6 sodium 141 creatinine 0.58 with a BUN of 20. Glucose 78. Patient is already on a water and calorie restricted diet. We can increase her Lasix to twice daily dosing of 40 mg have her continue the potassium supplementation. She has follow-up in about 5 days with her doctor which I think be reasonable for recheck. In the interim should we develop any dyspnea or breathing changes would recommend repeat evaluation here in the emergency department History & Record Review Discussion w/independent historian: Patient and Other Lab Data Attestation: I reviewed the patient's lab results. Labs: Laboratory Results - last 24 hr 01/08/24 14:02 Sodium 141 Potassium 4.6 Chloride 106 Carbon Dioxide 32.0 Anion Gap 3 L BUN 20 H Creatinine 0.58 Estim Creat Clear Calc 155.04 Est GFR (MDRD) Af Amer 147 Est GFR (MDRD) Non-Af 122 BUN/Creatinine Ratio 34.5 H Glucose 78 Calcium 9.3 Discharge Plan Triage Chief Complaint: General Illness ED Provider: Yeyo Lowery Dx/Rx/DC Orders Clinical Impression: Congestive heart failure, Abnormal weight gain, Lymphedema Instructions: Heart Failure Dc Prescriptions: No Action fluticasone propionate 50 mcg/actuation spray,suspension 50 mcg INTRANASAL ONCE clotrimazole 1 % cream 1 applic TOPICAL BID potassium chloride 10 mEq capsule, extended release 10 meq PO DAILY albuterol sulfate 90 mcg/actuation HFA aerosol inhaler 2 puff inhalation Q6H PRN (Reason: shortness of breath or wheezing) norethindrone (contraceptive) [Arianna] 0.35 mg tablet 0.35 mg PO QDAY Qty: 84 4RF ammonium lactate 140 GM cream 1 applicatio TOPICAL DAILY Patient Comments: skin health omega-3 fatty acids-fish oil 1 EACH capsule 1 ea PO DAILY Patient Comments: supplement calcium carbonate-vitamin D3 1 EACH tablet 1 ea PO BID Patient Comments: supplement nystatin 1 APPLIC bottle 1 applic TOPICAL BID epinephrine 0.3 MG syringe 0.3 mg IM X1 PRN (Reason: Anaphylaxis) dicyclomine 10 mg capsule 20 mg PO TIDAC Qty: 20 0RF diphenoxylate-atropine [Lomotil] 2.5-0.025 mg tablet 1 tab PO Q6H PRN (Reason: diarrhea) Qty: 14 0RF A Thru Z Advanced Formula 18-400 mg-mcg tablet 1 tab PO DAILY Dulera 100-5 mcg/actuation HFA aerosol inhaler 2 inh inhalation BID levothyroxine 100 mcg tablet 100 mcg PO DAILY ondansetron 4 mg tablet,disintegrating 4 mg PO Q8H PRN (Reason: Nausea) carvedilol 3.125 mg Tablet 3.125 mg PO BID Qty: 60 0RF aspirin 81 mg Tablet,Chewable 81 mg PO BREAKFAST Qty: 0 0RF furosemide [Lasix] 40 mg tablet 40 mg PO BIDCM 5 Days Qty: 60 0RF lisinopril 5 mg tablet 5 mg PO DAILY Qty: 30 0RF Primary Care Provider: Marilee Pérez Referrals: Marilee Pérez MD [Primary Care Provider] - Keep Rosita appointment Activity Restrictions/Additional Instructions: Increase the Lasix to 40 mg twice a day until seen by your doctor on Friday. Continue the potassium supplementation. Print Language: Nepali Disposition Disposition: Home, Self Care Discharge Date/Time: 01/08/24 14:57
== END 2024-01-08 14:57 | disposition home or self-care (01) ==
PROVIDERS: Emergency Provider Emergency Medicine; PCP Internal Medicine; Visit Provider Emergency Medicine
DX: I50.9 Heart failure, unspecified (principal); J44.9 Chronic obstructive pulmonary disease, unspecified; I89.0 Lymphedema, not elsewhere classified; G47.33 Obstructive sleep apnea (adult) (pediatric); E66.9 Obesity, unspecified
CPT/HCPCS: 80048; 96374; 99283; A4216; J1940

== ENCOUNTER 2024-01-22 22:17 | Inpatient (IN) | payer MEDICARE, MEDICAID, SELFPAY ==
[2024-01-22 22:17] VITALS: BP 124/71; PULSE 65; RESP 18; TEMP 36.2; O2SAT 96
[2024-01-22 22:52] VITALS: O2SAT 96; BMI 57.6
[2024-01-22 22:58] VITALS: BP 134/87; PULSE 67; RESP 16; TEMP 36.6; O2SAT 97
[2024-01-22 23:20] VITALS: BP 107/71; PULSE 60; RESP 18; TEMP 36.6; O2SAT 94
--- NOTE | 2024-01-22 23:27 | EKG12_ITS ---
Test Reason : SOB Blood Pressure : */* mmHG Vent. Rate : 57 BPM Atrial Rate : 57 BPM P-R Int : 116 ms QRS Dur : 92 ms QT Int : 436 ms P-R-T Axes : -7 1 10 degrees QTcB Int : 424 ms Sinus bradycardia Nonspecific T wave abnormality Abnormal ECG Confirmed by CIRO FERNANDES, JOELLEN ([id number]), magazine editor PAMELA JASSO ([id number]) on 01/27/2024 7:53:00 AM Referred By: JESSENIA Confirmed By: JOELLEN TANNER MD
--- NOTE | 2024-01-22 23:28 | ED.VIS.DYS ---
HPI History of Present Illness Chief Complaint: Shortness of Breath Informant: patient and other (nursing home staff) Narrative Narrative: 43-year-old female with Prader-Willi syndrome presenting to the emergency room with weight gain and edema. From review of the chart that accompanies the patient she weighed 277 pounds on 14 January. Tonight weighing to 99.8. nursing home staff states that the patient saw a new maintenance repairer in [place] last Friday. Lasix and Bumex was discontinued and she was started on furosemide twice a day 20 mg. They were supposed to call the maintenance repairer tomorrow. They note that the patient is more swollen again. She is complaining of tightness in her chest and her throat. She was admitted approximately a month ago for similar symptoms but with a respiratory acidosis requiring BiPAP. No reported fevers. Her last echocardiogram showed an ejection fraction of 65%, stage I diastolic dysfunction, pulmonary artery pressures of 54. [facility] Medical History Menorrhagia with regular cycle Cystocele with incomplete uterovaginal prolapse Enlarged RV (right ventricle) Prader-Willi syndrome Morbid obesity with BMI of 40.0-44.9, adult Sleep apnea COPD (chronic obstructive pulmonary disease) HTN (hypertension) Hypothyroidism Morbid obesity with body mass index (BMI) greater than or equal to 50 DACIA treated with BiPAP Prader-Willi syndrome Home Medications ?Medication ?Instructions ?Recorded ?Last Taken ?Type ammonium lactate 12 % topical cream 1 applicatio topical DAILY 10/26/13 12/26/23 History calcium 600 mg (as 1 ea PO BID 10/26/13 12/26/23 History carbonate)-vitamin D3 10 mcg (400 unit) tablet omega-3 fatty acids-fish oil 300 1 ea PO DAILY 10/26/13 12/26/23 History mg-500 mg capsule epinephrine 0.3 mg/0.3 mL 0.3 mg IM X1 PRN Anaphylaxis 06/01/16 Unknown History injection, auto-injector nystatin 100,000 unit/gram topical 1 applic topical BID 06/01/16 12/26/23 History powder clotrimazole 1 % topical cream 1 applic topical BID 04/08/17 12/26/23 History fluticasone propionate 50 50 mcg intranasal ONCE 04/08/17 12/26/23 History mcg/actuation nasal spray,suspension albuterol sulfate 90 mcg/actuation 2 puff inhalation Q6H PRN 05/22/21 Unknown History aerosol inhaler shortness of breath or wheezing potassium chloride 10 mEq 10 meq PO DAILY 05/22/21 12/26/23 History capsule,extended release norethindrone (contraceptive) 0.35 0.35 mg PO QDAY #84 tabs 06/02/23 12/26/23 Rx mg tablet (Arianna) dicyclomine 10 mg capsule 20 mg (2 x 10 mg) PO TIDAC #20 12/23/23 12/26/23 Rx CAPSULES diphenoxylate-atropine 2.5 1 tab PO Q6H PRN diarrhea #14 tabs 12/23/23 Unknown Rx mg-0.025 mg tablet (Lomotil) levothyroxine 100 mcg tablet 100 mcg PO DAILY 12/26/23 12/26/23 History mometasone-formoterol HFA 100 2 inh inhalation BID 12/26/23 12/26/23 History mcg-5 mcg/actuation aerosol inhaler (Dulera) multivitamin-ferrous 1 tab PO DAILY 12/26/23 12/26/23 History fumarate-folic acid 18 mg-400 mcg tablet (A Thru Z Advanced Formula) ondansetron 4 mg disintegrating 4 mg PO Q8H PRN Nausea 12/26/23 12/26/23 History tablet aspirin 81 mg chewable tablet 81 mg PO BREAKFAST #0 tabs 01/02/24 Unknown Rx carvedilol 3.125 mg tablet 3.125 mg PO BID #60 tabs 01/02/24 Unknown Rx furosemide 40 mg tablet (Lasix) 40 mg PO BIDCM 5 days #60 tabs 01/02/24 Unknown Rx lisinopril 5 mg tablet 5 mg PO DAILY #30 tabs 01/02/24 Unknown Rx Allergy/AdvReac Type Severity Reaction Status Date / Time insect venom (insect bites) Allergy Intermediate Itching Verified 01/22/24 22:17 phenytoin sodium (From Allergy Unknown Verified 01/22/24 22:17 Dilantin) phenytoin sodium extended Allergy Unknown Verified 01/22/24 22:17 (From Dilantin) venom-honey bee (bee venom Allergy Unknown Verified 01/22/24 22:17 (honey bee)) Family History Grandmother Diabetes Heart disease Hypertension Mother Diabetes Grandfather Hypertension Father No problems noted. Surgical History History of tonsillectomy and adenoidectomy Social History household members: none housing: other details: nursing home. Smoking Status: Never smoker alcohol intake: never substance use type: does not use caffeine: Yes frequency: daily seatbelt use: always do you feel safe at home: Yes additional social history: Louis Gimenez ROS ROS ED Constitutional Constitutional ED: Reports other Details: Weight gain ; Denies chills or weight loss Eyes Eyes: Denies change in vision or diplopia ENT ENT ED: Denies ear pain, rhinorrhea or sore throat Cardiovascular Cardiovascular: Denies chest pain, orthopnea, palpitations or racing heartbeat Respiratory/Chest Respiratory/Chest: Reports dyspnea and other Details: Leg swelling ; Denies cough or orthopnea Gastrointestinal Gastrointestinal: Denies abdominal pain, diarrhea, nausea or vomiting Genitourinary Genitourinary ED: Denies dysuria, hematuria or urinary frequency Musculoskeletal Musculoskeletal: Denies arthralgias or myalgias Integumentary Denies abscess or rash Neurologic Neurologic: Denies headache(s) or weakness Psychiatric Psychiatric: Denies anxiety, depression, suicidal ideation or suicidal thoughts Endocrine Endocrinology: Denies polydipsia, polyphagia or polyuria Allergic/Immunologic Allergic/Immunologic ED: Denies mouth swelling, tongue swelling or urticaria EXAM Physical Exam Const Vital Signs: 01/22/24 22:17 01/22/24 22:52 01/22/24 22:58 Temperature 97.2 F L 97.8 F Temperature Source Temporal Oral Pulse Rate 65 67 Respiratory Rate 18 16 Respiratory Effort Short of Breath Respiratory Depth Normal Respiratory Pattern Normal Blood Pressure 124/71 H 134/87 H Blood Pressure Mean 88 102 Pulse Ox 96 97 Oxygen Delivery Method Room Air Room Air Room Air 01/22/24 23:20 01/23/24 00:00 01/23/24 00:17 Temperature 97.8 F 97.8 F Temperature Source Oral Oral Pulse Rate 60 58 L 57 L Respiratory Rate 18 19 H 18 Respiratory Effort Respiratory Depth Respiratory Pattern Blood Pressure 107/71 109/61 109/61 Blood Pressure Mean 83 77 77 Pulse Ox 94 97 91 Oxygen Delivery Method Room Air Room Air Room Air 01/23/24 01:00 Temperature 97.8 F Temperature Source Oral Pulse Rate 61 Respiratory Rate 18 Respiratory Effort Respiratory Depth Respiratory Pattern Blood Pressure 91/61 Blood Pressure Mean 71 Pulse Ox 91 Oxygen Delivery Method Room Air Positive well nourished, well developed and obese General Appearance ED: well developed and NAD Nutritional Appearance: obese HEENT Reports normocephalic, head/scalp atraumatic and moist mucous membranes Eyes PERRL and EOMs intact bilaterally Neck no lymphadenopathy, supple and no JVD Resp normal respiratory effort and clear to auscultation bilaterally Cardio regular rate, regular rhythm and no murmurs GI normal to inspection, nondistended, normoactive bowel sounds and non-tender Palpation: soft Back/Spine no CVA tenderness and normal ROM Extremity General Extremety ED: Yes edema General Extremity: edema bilateral lower extremity Details: severe Neuro CN's II-XII intact bilaterally Sensorium / Orientation: alert Motor Exam: strength 5/5 throughout Psych mental status grossly normal Mood & Affect: Negative for depressed or tearful Skin no rashes or lesions noted and no wounds MDM MDM MDM Narrative Medical decision making narrative: Differential diagnosis includes but not limited to CHF lymphedema renal failure electrolyte abnormalities acute coronary syndrome White count elevated 14.1 of undetermined significance platelet count 172 hemoglobin 12 BUN of 29 creatinine 0.73. Troponin 10 BNP 38.5 urinalysis no overt infection. There is no proteinuria. My independent interpretation the chest x-ray is no acute process. Patient is 43-year-old with Prader-Willi syndrome. She has had about a 22 pound weight gain in the past 7 days. Legs are tense and significantly swollen. She is symptomatically feeling short of breath. 1 month ago required noninvasive ventilatory support for CHF. I recommend that we bring her into the hospital as she is from a half-way and aggressively diuresed. I will speak with the hospitalist History & Record Review Discussion w/independent historian: Patient and Other Additional record(s) reviewed:: Prior inpatient record, Prior ED visit, Prior labs and No prior records Lab Data Attestation: I reviewed the patient's lab results. Labs: Laboratory Results - last 24 hr 01/22/24 01/22/24 23:40 23:55 WBC 14.1 H RBC 3.70 L Hgb 12.0 Hct 37.6 MCV 101.6 H MCH 32.4 H MCHC 31.9 L RDW Std Deviation 49.0 H RDW Coeff of Denzel 13.2 Plt Count 172 MPV 11.1 Immature Gran % (Auto) 0.900 Neut % (Auto) 64.5 Lymph % (Auto) 20.1 [place] % (Auto) 9.0 Eos % (Auto) 4.9 Baso % (Auto) 0.6 Absolute Neuts (auto) 9.1 H Absolute Lymphs (auto) 2.83 Nucleated RBC % 0 Sodium 137 Potassium 4.2 Chloride 100 Carbon Dioxide 34.0 H Anion Gap 3 L BUN 29 H Creatinine 0.73 Estim Creat Clear Calc 129.52 Est GFR (MDRD) Af Amer 113 Est GFR (MDRD) Non-Af 93 BUN/Creatinine Ratio 39.8 H Glucose 78 Calcium 8.9 Magnesium 2.4 Troponin I High Sens 10 B-Natriuretic Peptide 38.5 Urine Color Yellow Urine Clarity Clear Urine pH 6.0 Ur Specific [place] 1.010 Urine Protein Negative Urine Glucose (UA) Normal Urine Ketones Negative Urine Occult Blood 150 H Urine Nitrite Negative Urine Bilirubin Negative Urine Urobilinogen Normal Ur Leukocyte Esterase 25 H Urine RBC 0-5 SEEN Urine WBC 0 SEEN Ur Squamous Epith Cells 0 SEEN Urine Bacteria 0 SEEN Urine Mucus 0 SEEN Radiography Diagnostic Testing: Clinical Impression(s) from Imaging Studies Chest X-Ray 01/22/24 23:59 IMPRESSION: No evidence of active intrathoracic disease. Electronically Signed: Lyubov Connors MD at 0:43 EST , EKG Initial EKG: Attestation: I personally reviewed and interpreted this EKG as follows: Comments: Sinus bradycardia 57 bpm Management Discussion w/another healthcare provider: Hospitalist (Dr Torres) Discharge Plan Dx/Rx/DC Orders Clinical Impression: CHF (congestive heart failure), Prader-Willi syndrome Disposition Disposition: Acute Care [facility]
--- NOTE | 2024-01-22 23:59 | RAD_ITS ---
INDICATION: chf EXAMINATION/TECHNIQUE: X-RAY - XR Chest 1 View AP portable. 12:06 AM COMPARISON: Prior study dated: 12/26/2023 FINDINGS: LINES/DEVICES: None. LUNGS: No consolidation. No infiltrates. Previously noted infiltrates resolved. No pneumothorax. MEDIASTINUM: Unremarkable. CARDIAC SILHOUETTE: Mildly enlarged. Stable size. BONES AND SOFT TISSUES: No acute abnormalities. RAD/Chest 1 View (Portable) IMPRESSION: No evidence of active intrathoracic disease. Electronically Signed: Lyubov Connors MD at 0:43 EST ,
[2024-01-23] VITALS (14 sets, daily range): BP systolic 91–156; BP diastolic 58–96; PULSE 57–82; RESP 16–20; TEMP 36.1–36.7; O2SAT 91–97; BMI 53.5
[2024-01-23 00:01] LABS: Bacteria 0 SEEN /hpf (None Seen); Mucous, Urine 0 SEEN /hpf (<or=2+); Squamous Epithelial Cells - UA 0 SEEN /hpf (5-10); White Blood Cells 0 SEEN /hpf (0-5)
[2024-01-23 00:04] LABS: Color, Urine Yellow (Yellow); Glucose, Dipstick Normal (Normal); Ketone-Dipstick Negative (Negative); Leukocyte Esterase-Dipstick 25 /ul (Negative); Nitrite-Dipstick Negative (Negative); Occult Blood-Urine 150 /ul (Negative); Protein-Dipstick Negative (Negative); Urine Bilirubin Dipstick Negative (Negative); Urine Clarity Clear (Clear); Urine Urobilinogen Normal (Normal)
[2024-01-23 00:04] LABS: Absolute Lymphocyte Count 2.83 X10^3/uL (0.83-4.51); Absolute Neutrophil Count 9.1 X10^3/uL (2.0-7.7); Basophil# 0.08 X10^3/uL; Basophil% 0.6 % (0-1); Eosinophil# 0.69 X10^3/uL; Eosinophils% 4.9 % (0-5); Hematocrit 37.6 % (37-47); Lymphocyte # 2.83 X10^3/ul (0.83-4.51); Lymphocyte % 20.1 % (19-41); Mean Corp Hgb Conc 31.9 g/dL (32-36); Mean Corpuscular Hgb 32.4 pg (27.0-32.0); Mean Corpuscular Volume 101.6 fL (81-99); Mean Platelet Vol. 11.1 fl (6.2-12.0); Monocyte# 1.27 X10^3/uL; NRBC Flagged by Analyzer 0 % (0-5); Neutrophil # 9.12 X10^3/uL (2.7-7.7); Neutrophil % 64.5 % (47-70); Platelet Count 172 K/mm3 (150-450); RBC Distribution Width CV 13.2 % (11.6-14.6); White Blood Count 14.1 K/mm3 (4.4-11.0)
[2024-01-23 00:33] LABS: Anion Gap 3 (5-15); BUN 29 mg/dL (7-18); BUN/Creat Ratio 39.8 RATIO (10-20); Calcium,Total 8.9 mg/dL (8.5-10.1); Chloride 100 mmol/L (98-107); Creatinine, Serum 0.73 mg/dL (0.55-1.02); EST Glomerular Filtration Rate 93 mL/min (>60); Est Glom Filt Rate - Afr Amer 113 mL/min (>60); Estimated Creatinine Clearance 129.52 ml/min; Glucose 78 mg/dL (74-106); Magnesium 2.4 mg/dL (1.6-2.6); Potassium 4.2 mmol/L (3.5-5.1); Sodium Level 137 mmol/L (136-145); Troponin-I HS 10 pg/mL (3.0-54.0)
[2024-01-23 00:34] LABS: Red Blood Cells-Urine 0-5 SEEN /hpf (0-5)
[2024-01-23 00:42] LABS: BNP,B-Type NATRIURETIC PEPTIDE 38.5 pg/mL (0-100)
--- NOTE | 2024-01-23 01:46 | PCM.HP.STD ---
HPI - General General Date of Admission: 01/23/24 Date of Service: 01/23/24 Chief Complaint: Dyspnea, weight gain, edema. HPI Narrative The patient is a 43 y/o F w/ PMHx: Morbid obesity, COPD w/ allergic rhinitis, Pulmonary HTN following w/ Dr. 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, HTN, Hypothyroidism, Prader-Leandro syndrome who presents to the [facility] ED on 01/23/24 with history of increased swelling, edema with increasing shortness of breath and occasional dizziness recently started on new diuretic the Friday prior, most recent discharge 01/02/24 of note following evaluation and treatment of NSTEMI in the setting of Acute HFpEF exacerbation and following this noted ED visit 01/08/24 secondary to history of increased weight gain of 20 pounds at that point since her discharge with Lasix transition to twice daily with plan to follow-up with her physician at that time with most recent weights noted 01/08/2024 weight reportedly 273 pound 9.6 ounces--> 01/22/2024 weight 295 pounds 6.711 ounce prompting eventual ED evaluation to be cautious. Patient reports seeing a new structural biologist in [place] the Friday prior who discontinued her Lasix and Bumex with initiation on decreased dose of Lasix 20 mg twice daily with plan at that time [place] structural biologist on 01/23/2024 with similar symptoms to previous presentation with tightness in her chest, worsening edema, orthopnea, weight gain. Workup in the ED included T97.8, heart 67, BP 134/87, respiratory rate 16, 97% room air, CBC with WBC 14.1, 112, MCV 101.6, platelet 172 with left shift, BMP with complex at 34, BUN/creatinine 29/0.73 otherwise unremarkable, troponin 10, BNP 38.5, magnesium 2.4, urinalysis not marked appearing, chest x-ray with no acute cardiopulmonary findings, EKG with SR without acute evidence of ischemia. Lasix 40 mg IV x 1 administered. [facility] Medical History (HFpEF) heart failure with preserved ejection fraction Menorrhagia with regular cycle Cystocele with incomplete uterovaginal prolapse Enlarged RV (right ventricle) Prader-Willi syndrome Morbid obesity with BMI of 40.0-44.9, adult Sleep apnea COPD (chronic obstructive pulmonary disease) HTN (hypertension) Hypothyroidism Morbid obesity with body mass index (BMI) greater than or equal to 50 DACIA treated with BiPAP Prader-Willi syndrome Home Medications ?Medication ?Instructions ?Recorded ?Last Taken ?Type ammonium lactate 12 % topical cream 1 applicatio topical DAILY 10/26/13 12/26/23 History calcium 600 mg (as 1 ea PO BID 10/26/13 12/26/23 History carbonate)-vitamin D3 10 mcg (400 unit) tablet omega-3 fatty acids-fish oil 300 1 ea PO DAILY 10/26/13 12/26/23 History mg-500 mg capsule epinephrine 0.3 mg/0.3 mL 0.3 mg IM X1 PRN Anaphylaxis 06/01/16 Unknown History injection, auto-injector nystatin 100,000 unit/gram topical 1 applic topical BID 06/01/16 12/26/23 History powder clotrimazole 1 % topical cream 1 applic topical BID 04/08/17 12/26/23 History fluticasone propionate 50 50 mcg intranasal ONCE 04/08/17 12/26/23 History mcg/actuation nasal spray,suspension albuterol sulfate 90 mcg/actuation 2 puff inhalation Q6H PRN 05/22/21 Unknown History aerosol inhaler shortness of breath or wheezing potassium chloride 10 mEq 10 meq PO DAILY 05/22/21 12/26/23 History capsule,extended release norethindrone (contraceptive) 0.35 0.35 mg PO QDAY #84 tabs 06/02/23 12/26/23 Rx mg tablet (Arianna) dicyclomine 10 mg capsule 20 mg (2 x 10 mg) PO TIDAC #20 12/23/23 12/26/23 Rx CAPSULES diphenoxylate-atropine 2.5 1 tab PO Q6H PRN diarrhea #14 tabs 12/23/23 Unknown Rx mg-0.025 mg tablet (Lomotil) levothyroxine 100 mcg tablet 100 mcg PO DAILY 12/26/23 12/26/23 History mometasone-formoterol HFA 100 2 inh inhalation BID 12/26/23 12/26/23 History mcg-5 mcg/actuation aerosol inhaler (Dulera) multivitamin-ferrous 1 tab PO DAILY 12/26/23 12/26/23 History fumarate-folic acid 18 mg-400 mcg tablet (A Thru Z Advanced Formula) ondansetron 4 mg disintegrating 4 mg PO Q8H PRN Nausea 12/26/23 12/26/23 History tablet aspirin 81 mg chewable tablet 81 mg PO BREAKFAST #0 tabs 01/02/24 Unknown Rx carvedilol 3.125 mg tablet 3.125 mg PO BID #60 tabs 01/02/24 Unknown Rx furosemide 40 mg tablet (Lasix) 40 mg PO BIDCM 5 days #60 tabs 01/02/24 Unknown Rx lisinopril 5 mg tablet 5 mg PO DAILY #30 tabs 01/02/24 Unknown Rx Allergy/AdvReac Type Severity Reaction Status Date / Time insect venom (insect bites) Allergy Intermediate Itching Verified 01/22/24 22:17 phenytoin sodium (From Allergy Unknown Verified 01/22/24 22:17 Dilantin) phenytoin sodium extended Allergy Unknown Verified 01/22/24 22:17 (From Dilantin) venom-honey bee (bee venom Allergy Unknown Verified 01/22/24 22:17 (honey bee)) Family History Grandmother Diabetes Heart disease Hypertension Mother Diabetes Grandfather Hypertension Father No problems noted. Surgical History History of tonsillectomy and adenoidectomy Social History household members: none housing: other details: [facility]. Smoking Status: Never smoker alcohol intake: never substance use type: does not use caffeine: Yes frequency: daily seatbelt use: always do you feel safe at home: Yes additional social history: Louis Gimenez [facility] ROS Narrative Admission Review of Systems: CONSTITUTIONAL: No weight loss, fever, chills, + weakness or fatigue, weight gain. HEENT: Eyes: No visual loss, blurred vision, double vision or yellow sclerae. Ears, Nose, Throat: No hearing loss, sneezing, congestion, runny nose or sore throat. SKIN: No rash or itching, lesions, wounds. CARDIOVASCULAR: + Chest pain, edema, orthopnea. No palpitations, syncopal events. RESPIRATORY: + Dyspnea. No marked cough or sputum, wheezing, hemoptysis. GASTROINTESTINAL: No decreased appetite, nausea, emesis, diarrhea, abdominal pain, melena, BRBPR. GENITOURINARY: No dysuria, frequency, urgency or retention. NEUROLOGICAL: + Prader-Willi syndrome with underlying mental debility. No headache, dizziness, syncope, paralysis, ataxia, numbness or tingling in the extremities, focal weakness, change in bowel or bladder control, seizure. MUSCULOSKELETAL: + muscle, back pain, joint pain or stiffness. HEMATOLOGIC: No anemia, bleeding or bruising. LYMPHATICS: No enlarged nodes. No history of splenectomy. PSYCHIATRIC: No history of depression or anxiety. ENDOCRINOLOGIC: No reports of sweating, cold or heat intolerance. No polyuria or polydipsia. ALLERGIES: + History of allergic rhinitis. Vital Signs Vital Signs Vital Signs: 01/22/24 22:17 01/22/24 22:52 01/22/24 22:58 Temperature 97.2 F L 97.8 F Temperature Source Temporal Oral Pulse Rate 65 67 Respiratory Rate 18 16 Respiratory Effort Short of Breath Respiratory Depth Normal Respiratory Pattern Normal Blood Pressure 124/71 H 134/87 H Blood Pressure Mean 88 102 Pulse Ox 96 97 Oxygen Delivery Method Room Air Room Air Room Air 01/22/24 23:20 01/23/24 00:00 01/23/24 00:17 Temperature 97.8 F 97.8 F Temperature Source Oral Oral Pulse Rate 60 58 L 57 L Respiratory Rate 18 19 H 18 Respiratory Effort Respiratory Depth Respiratory Pattern Blood Pressure 107/71 109/61 109/61 Blood Pressure Mean 83 77 77 Pulse Ox 94 97 91 Oxygen Delivery Method Room Air Room Air Room Air 01/23/24 01:00 Temperature 97.8 F Temperature Source Oral Pulse Rate 61 Respiratory Rate 18 Respiratory Effort Respiratory Depth Respiratory Pattern Blood Pressure 91/61 Blood Pressure Mean 71 Pulse Ox 91 Oxygen Delivery Method Room Air Weight Weight: 295 lb 6.711 oz Body Mass Index (BMI) 57.6 Physical Exam Narrative Physical Examination: General: Awake, alert, oriented to self, place and recent events, cooperative, seated upright in the ED bed, fatigued appearance. Skin: Normal color, normal turgor, no icterus, no cyanosis except for intertrigo in folds and BL LE venous stasis skin changes, erythematous secondary to notable edema. HEENT: AT/NC, EOMI, PERRLA, MMM, difficult to discern carotid bruits and JVD given very thickened neck. Lungs: Significantly diminished, distant breath sounds, very distant rales at bases, no rhonchi or wheezing, no evidence of distress. Heart: Regular rate and rhythm; no gallop, rub audible. Abdomen: Soft, morbidly obese, NTTP, distant BS, difficult to discern distention HSM given habitus. Extremities: No cyanosis, no clubbing, significant pedal to above knee BL 3+ pitting edema, see skin. Neurological: Patient awake, alert, oriented as noted, cognitive function with underlying impairment given underlying Prader-Willi syndrome, currently baseline intact, improving, pupils equally reactive to light and accommodation, cranial nerves grossly normal, moving all 4 extremities, no focal deficits, strength moderately to severely globally decreased secondary to acute presentation. Psychiatric: Affect appears flat, fatigued, no acute evidence of depressive or anxiety feelings. Results Lab / Micro Data 01/22/24 23:40 01/22/24 23:40 Labs: Laboratory Results - last 24 hr 01/22/24 23:40: WBC 14.1 H, RBC 3.70 L, Hgb 12.0, Hct 37.6, MCV 101.6 H, MCH 32.4 H, MCHC 31.9 L, RDW Std Deviation 49.0 H, RDW Coeff of Denzel 13.2, Plt Count 172, MPV 11.1, Immature Gran % (Auto) 0.900, Neut % (Auto) 64.5, Lymph % (Auto) 20.1, Kitt[place] % (Auto) 9.0, Eos % (Auto) 4.9, Baso % (Auto) 0.6, Absolute Neuts (auto) 9.1 H, Absolute Lymphs (auto) 2.83, Nucleated RBC % 0, Sodium 137, Potassium 4.2, Chloride 100, Carbon Dioxide 34.0 H, Anion Gap 3 L, BUN 29 H, Creatinine 0.73, Estim Creat Clear Calc 129.52, Est GFR (MDRD) Af Amer 113, Est GFR (MDRD) Non-Af 93, BUN/Creatinine Ratio 39.8 H, Glucose 78, Calcium 8.9, Magnesium 2.4, Troponin I High Sens 10, B-Natriuretic Peptide 38.5 01/22/24 23:55: Urine Color Yellow, Urine Clarity Clear, Urine pH 6.0, Ur Specific Brea 1.010, Urine Protein Negative, Urine Glucose (UA) Normal, Urine Ketones Negative, Urine Occult Blood 150 H, Urine Nitrite Negative, Urine Bilirubin Negative, Urine Urobilinogen Normal, Ur Leukocyte Esterase 25 H, Urine RBC 0-5 SEEN, Urine WBC 0 SEEN, Ur Squamous Epith Cells 0 SEEN, Urine Bacteria 0 SEEN, Urine Mucus 0 SEEN Imaging Radiology Impression Chest X-Ray 01/22/24 23:59 IMPRESSION: No evidence of active intrathoracic disease. Electronically Signed: Lyubov Connors MD at 0:43 EST , Assessment & Plan Assessment/Plan (1) CHF (congestive heart failure): PLAN: Plan The patient is a 43 y/o F w/ PMHx: Morbid obesity, COPD w/ allergic rhinitis, Pulmonary HTN following w/ Dr. 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, HTN, Hypothyroidism, Prader-Leandro syndrome who presents to the [facility] ED on 01/23/24 with history of increased swelling, edema with increasing shortness of breath and occasional dizziness recently started on new diuretic the Friday prior, most recent discharge 01/02/24 of note following evaluation and treatment of NSTEMI in the setting of Acute HFpEF exacerbation and following this noted ED visit 01/08/24 secondary to history of increased weight gain of 20 pounds at that point since her discharge with Lasix transition to twice daily with plan to follow-up with her physician at that time with most recent weights noted 01/08/2024 weight reportedly 273 pound 9.6 ounces--> 01/22/2024 weight 295 pounds 6.711 ounce prompting eventual ED evaluation to be cautious. #1. Acute Decompensated HFpEF: Will admit to PCU will continue IV lasix diuresis, monitor I/Os, maintain on intake restriction, continue medical therapy, recent TSH ordered thus will defer repeating, ED obtained normal magnesium level,12/27/2023 echocardiogram with normal LV size and function, dilated RV with impaired function, moderate TR, LV systolic function normal, LVEF of 55%, mildly dilated RV, pulmonary pressure [address] TYLER wraps. Most recent admission with 12/27/2023 cholesterol panel with triglycerides 63, total cholesterol 112, LDL 47, VLDL 13, HDL 52. #2. Prader-Willi syndrome: Unclear exact genotypic/phenotypic association, unclear if there is any behavioral disturbance component encouraged continued aggressive outpatient follow-up for any developmental issues/growth hormone deficiencies in addition to significant morbid obesity noted as well as continued evaluation for ongoing compliance with her BiPAP for underlying sleep apnea. #3. Hypertension: We will continue lisinopril, Coreg home regimen as BP allows while prioritizing IV Lasix diuresis, PRN hydralazine. #4. Chronic COPD with allergic rhinitis: We will hold home inhalers and in the interim we will transition to ATC budesonide therapy, PRN albuterol, HOB, IS parameters, continue fluticasone home regimen, encourage BiPAP nightly. #5. Hypothyroidism: Continue home synthroid regimen. Recent TSH during previous admission normal, 12/27/2023 TSH 2.840.. #6. Morbid Obesity: Weight loss and lifestyle changes encouraged. #7. DACIA: Encourage BiPAP nightly. #8. DVT prophylaxis: Lovenox. #9. CODE status: Full Code status. Charges/Coding Visit Charges Inpatient E&M: 80737 Init Hosp L3
[2024-01-23] MEDS: Furosemide 40 MG/4 ML Vial IV ×2 (02:03→09:16)
[2024-01-23] MEDS: Nystatin Powder 15gm Bottle 1 APPLIC TOPICAL ×3 (04:11→21:07)
[2024-01-23] MEDS: Levothyroxine 100 MCG Tablet PO (05:52)
[2024-01-23] MEDS: Budesonide Respules 0.5 MG/2 ML AMPUL.NEB. INHALATION ×2 (06:55→19:30)
[2024-01-23 07:50] LABS: Absolute Lymphocyte Count 2.61 X10^3/uL (0.83-4.51); Absolute Neutrophil Count 8.4 X10^3/uL (2.0-7.7); Basophil# 0.06 X10^3/uL; Basophil% 0.5 % (0-1); Eosinophil# 0.61 X10^3/uL; Eosinophils% 4.7 % (0-5); Hematocrit 34.9 % (37-47); Lymphocyte # 2.61 X10^3/ul (0.83-4.51); Lymphocyte % 20.2 % (19-41); Mean Corp Hgb Conc 31.5 g/dL (32-36); Mean Corpuscular Volume 101.5 fL (81-99); Mean Platelet Vol. 11.4 fl (6.2-12.0); Monocyte# 1.18 X10^3/uL; Monocyte% 9.1 % (0-10); NRBC Flagged by Analyzer 0 % (0-5); Neutrophil # 8.36 X10^3/uL (2.7-7.7); Neutrophil % 64.9 % (47-70); Platelet Count 156 K/mm3 (150-450); RBC Distribution Width CV 13.2 % (11.6-14.6); RBC Distribution Width SD 49.1 fl (35.1-43.9); Red Blood Count 3.44 M/mm3 (4.2-5.4); White Blood Count 12.9 K/mm3 (4.4-11.0)
[2024-01-23 08:15] LABS: ALB/GLOB Ratio 0.9 RATIO (0.9-2.4); AST(SGOT) 12 U/L (15-37); Alanine Aminotransfer ALT/SGPT 20 U/L (13-56); Alkaline Phosphatase 76 U/L (45-117); Anion Gap 2 (5-15); BUN 29 mg/dL (7-18); BUN/Creat Ratio 42.2 RATIO (10-20); Calcium,Total 8.6 mg/dL (8.5-10.1); Chloride 101 mmol/L (98-107); Creatinine, Serum 0.69 mg/dL (0.55-1.02); EST Glomerular Filtration Rate 100 mL/min (>60); Est Glom Filt Rate - Afr Amer 121 mL/min (>60); Estimated Creatinine Clearance 140.83 ml/min; Globulin 3.3 g/dL (2.2-4.2); Glucose 89 mg/dL (74-106); Potassium 4.1 mmol/L (3.5-5.1); Protein, Total 6.3 g/dL (6.4-8.2); Sodium Level 138 mmol/L (136-145)
[2024-01-23] MEDS: Potassium Chloride Oral Tablet 10 MEQ PO (09:15)
[2024-01-23] MEDS: Enoxaparin 40 MG/0.4 ML Syringe SC ×2 (09:16→21:06)
[2024-01-23] MEDS: Lisinopril 5 MG Tablet PO (09:16)
[2024-01-23] MEDS: Carvedilol 3.125 MG TABLET PO ×2 (09:16→21:06)
[2024-01-23] MEDS: Aspirin 81 MG TAB.CHEW PO (09:16)
--- NOTE | 2024-01-23 10:52 | CASEMGMT ---
KE is familiar with patient from a previous admission. [facility] [place] [facility]. KE called Shaunna Moise who was the [place] [facility] contact last admission. Shaunna told KE to [place]ob[place] if patient is ready for discharge over the weekend. Shaunna also said patient is still active with [facility] for nursing. They would like patient to have PT/OT also. Shobha may assist with transport or patient's mom. skilled nursinghome improvement contractor- Shobha [phone]. Plan: d/c back to the [place] [facility] when medically ready. Ruby Laughlin DIRECTOR ENERGY [employer]SHVIN
--- NOTE | 2024-01-23 12:33 | PCM.HOSP.N ---
Hospitalist Note Patient was seen and examined briefly today, she appears to be in no respiratory distress she is not on any oxygen. I have elected to change her Lasix to 20 mg every 8 hours, she has chronic lower leg edema and class III obesity. [facility] [place] and has Prader-Willi syndrome. PT and OT will see the patient today for evaluation.
[2024-01-23] MEDS: Furosemide 40 MG/4 ML Vial 20 MG IV ×2 (14:23→21:05)
--- NOTE | 2024-01-23 14:53 | CHAPLAIN ---
Type of Pastoral Visit _x__ Initial Visit ___ Follow-up Visit ___ On-call Visit ___ General Patient Visit ___ Spiritual Assessment ___ Family Conference ___ Bereavement ___ Rapid Response ___ Code Blue ___ Other (describe below) Pastoral Care Referral From _x__ Patient ___ Family ___ Nurse ___ Physician ___ Recruiting And Selection Consultant ___ Signal Tower Operator ___ Other (describe below) Sacrament/Intervention _x__ Active listening ___ Anointing ___ Yarsanism ___ Bereavement ___ Communion ___ Susan exploration ___ ___ Life review _x__ Prayer ___ Reconciliation ___ Sacrament of Sick _x__ Supportive presence ___ Wedding ___ Other (describe below) Pastoral Comments patient was eating her lunch and family members were in the room; offered support to this patient that was seen recently in the hospital; pt states that she is fine but that she needs to have the fluid off; offer of support and a prayer; pt says pray that the fluid comes off of my body; offer of support to family who respond that they are doing well; no other needs
[2024-01-24] VITALS (12 sets, daily range): BP systolic 89–111; BP diastolic 55–91; PULSE 53–68; RESP 15–19; TEMP 36.5–36.6; O2SAT 94–100; BMI 53.5
[2024-01-24] MEDS: Levothyroxine 100 MCG Tablet PO (06:40)
[2024-01-24] MEDS: Furosemide 40 MG/4 ML Vial 20 MG IV (06:40)
[2024-01-24] MEDS: Budesonide Respules 0.5 MG/2 ML AMPUL.NEB. INHALATION ×2 (06:59→19:34)
[2024-01-24] MEDS: Enoxaparin 40 MG/0.4 ML Syringe SC ×2 (08:48→20:57)
[2024-01-24] MEDS: Nystatin Powder 15gm Bottle 1 APPLIC TOPICAL ×2 (08:49→20:58)
[2024-01-24] MEDS: Potassium Chloride Oral Tablet 10 MEQ PO (08:49)
[2024-01-24] MEDS: Aspirin 81 MG TAB.CHEW PO (08:49)
--- NOTE | 2024-01-24 10:05 | DCINST_ITS ---
Discharge Instructions Diet Discharge Diet: - (Resume previous diet) Activity Discharge Activity: Return to Normal Activity Weight Bearing Status: Full weight bearing Follow Up Care Test Results: Test results from this visit will be discussed in further detail at your follow- up appointment, if applicable. Discharge Plan Admission Admit Date/Time: 01/23/24 01:48 Primary Reason for Your Visit: Marisa Attending Provider: Jagdeep Montalvo Primary Care Provider: Marilee Pérez Consulting Providers: Cinthia Torres Discharge Orders/Prescriptions Prescriptions: Continued fluticasone propionate 50 mcg/actuation spray,suspension 50 mcg INTRANASAL ONCE clotrimazole 1 % cream 1 applic TOPICAL BID albuterol sulfate 90 mcg/actuation HFA aerosol inhaler 2 puff inhalation Q6H PRN (Reason: shortness of breath or wheezing) norethindrone (contraceptive) [Arianna] 0.35 mg tablet 0.35 mg PO QDAY Qty: 84 4RF ammonium lactate 140 GM cream 1 applicatio TOPICAL DAILY Patient Comments: skin health omega-3 fatty acids-fish oil 1 EACH capsule 1 ea PO DAILY Patient Comments: supplement calcium carbonate-vitamin D3 1 EACH tablet 1 ea PO BID Patient Comments: supplement nystatin 1 APPLIC bottle 1 applic TOPICAL BID epinephrine 0.3 MG syringe 0.3 mg IM X1 PRN (Reason: Anaphylaxis) dicyclomine 10 mg capsule 20 mg PO TIDAC Qty: 20 0RF diphenoxylate-atropine [Lomotil] 2.5-0.025 mg tablet 1 tab PO Q6H PRN (Reason: diarrhea) Qty: 14 0RF A Thru Z Advanced Formula 18-400 mg-mcg tablet 1 tab PO DAILY Dulera 100-5 mcg/actuation HFA aerosol inhaler 2 inh inhalation BID levothyroxine 100 mcg tablet 100 mcg PO DAILY ondansetron 4 mg tablet,disintegrating 4 mg PO Q8H PRN (Reason: Nausea) carvedilol 3.125 mg Tablet 3.125 mg PO BID Qty: 60 0RF aspirin 81 mg Tablet,Chewable 81 mg PO BREAKFAST Qty: 0 0RF furosemide [Lasix] 40 mg tablet 40 mg PO BIDCM 5 Days Qty: 60 0RF lisinopril 5 mg tablet 5 mg PO DAILY Qty: 30 0RF Changed potassium chloride 10 mEq capsule, extended release 20 meq PO DAILY Qty: 60 0RF Referrals / Follow Up: Marilee Pérez MD [Primary Care Provider] - Within 2 Weeks Disposition Disposition (needs filled in before D/C Order can be placed): Home, Self Care
--- NOTE | 2024-01-24 10:30 | PCM.DC.SUM ---
Providers Date of Admission: 01/23/24 Date of Discharge: 01/24/24 Primary Care Physician: Dr. Marilee Pérez MD Reason For Visit: HF EXACERBATION Diagnosis Discharge Diagnosis (1) CHF (congestive heart failure): Status: Acute Code(s): I50.9 - Heart failure, unspecified Medications at Discharge Home Medications ammonium lactate 12 % topical cream 1 applicatio topical DAILY 10/26/13 calcium 600 mg (as carbonate)-vitamin D3 10 mcg (400 unit) tablet 1 ea PO BID 10/26/13 omega-3 fatty acids-fish oil 300 mg-500 mg capsule 1 ea PO DAILY 10/26/13 epinephrine 0.3 mg/0.3 mL injection, auto-injector 0.3 mg IM X1 PRN Anaphylaxis 06/01/16 nystatin 100,000 unit/gram topical powder 1 applic topical BID 06/01/16 clotrimazole 1 % topical cream 1 applic topical BID 04/08/17 fluticasone propionate 50 mcg/actuation nasal spray,suspension 50 mcg intranasal ONCE 04/08/17 albuterol sulfate 90 mcg/actuation aerosol inhaler 2 puff inhalation Q6H PRN shortness of breath or wheezing 05/22/21 norethindrone (contraceptive) 0.35 mg tablet (Arianna) 0.35 mg PO QDAY #84 tabs 06/02/23 dicyclomine 10 mg capsule 20 mg (2 x 10 mg) PO TIDAC #20 CAPSULES 12/23/23 diphenoxylate-atropine 2.5 mg-0.025 mg tablet (Lomotil) 1 tab PO Q6H PRN diarrhea #14 tabs 12/23/23 levothyroxine 100 mcg tablet 100 mcg PO DAILY 12/26/23 mometasone-formoterol HFA 100 mcg-5 mcg/actuation aerosol inhaler (Dulera) 2 inh inhalation BID 12/26/23 multivitamin-ferrous fumarate-folic acid 18 mg-400 mcg tablet (A Thru Z Advanced Formula) 1 tab PO DAILY 12/26/23 ondansetron 4 mg disintegrating tablet 4 mg PO Q8H PRN Nausea 12/26/23 aspirin 81 mg chewable tablet 81 mg PO BREAKFAST #0 tabs 01/02/24 carvedilol 3.125 mg tablet 3.125 mg PO BID #60 tabs 01/02/24 furosemide 40 mg tablet (Lasix) 40 mg PO BIDCM 5 days #60 tabs 01/02/24 lisinopril 5 mg tablet 5 mg PO DAILY #30 tabs 01/02/24 potassium chloride 10 mEq capsule,extended release 20 meq (2 x 10 mEq) PO DAILY #60 caps 01/24/24 Weight / BMI Weight Weight: 132.7 kg Body Mass Index (BMI) 53.5 ABG / Lab / Microbiology Data 01/23/24 07:05 01/23/24 07:05 D/C Instructions Discharge Diet: - (Resume previous diet) Weight Bearing Status: Full weight bearing Meaningful Use Info Ischemic Stroke Statin Dosing Therapy Reference: STATIN DOSE THERAPY REFERENCE: * Patients > 75 years receive moderate or high dose statin therapy. * Patients 75 years or YOUNGER should receive HIGH intensity statin dose unless contraindicated. You will be required to document reason for non-treatment if statin daily dose does not meet guidelines. HIGH DOSE STATIN THERAPY DAILY Atorvastatin > than or = to 40 mg Rosuvastatin > than or = to 20 mg Amlodipine + Atorvastatin > than or = to 2.5/40 mg Ezetimibe + Simvastatin 10/80 mg Simvastatin 80mg Discharge Plan Admission Admit Date/Time: 01/23/24 01:48 Primary Reason for Your Visit: Marisa Attending Provider: Jagdeep Montalvo Primary Care Provider: Marilee Pérez Consulting Providers: Cinthia Torres Discharge Orders/Prescriptions Prescriptions: Continued fluticasone propionate 50 mcg/actuation spray,suspension 50 mcg INTRANASAL ONCE clotrimazole 1 % cream 1 applic TOPICAL BID albuterol sulfate 90 mcg/actuation HFA aerosol inhaler 2 puff inhalation Q6H PRN (Reason: shortness of breath or wheezing) norethindrone (contraceptive) [Arianna] 0.35 mg tablet 0.35 mg PO QDAY Qty: 84 4RF ammonium lactate 140 GM cream 1 applicatio TOPICAL DAILY Patient Comments: skin health omega-3 fatty acids-fish oil 1 EACH capsule 1 ea PO DAILY Patient Comments: supplement calcium carbonate-vitamin D3 1 EACH tablet 1 ea PO BID Patient Comments: supplement nystatin 1 APPLIC bottle 1 applic TOPICAL BID epinephrine 0.3 MG syringe 0.3 mg IM X1 PRN (Reason: Anaphylaxis) dicyclomine 10 mg capsule 20 mg PO TIDAC Qty: 20 0RF diphenoxylate-atropine [Lomotil] 2.5-0.025 mg tablet 1 tab PO Q6H PRN (Reason: diarrhea) Qty: 14 0RF A Thru Z Advanced Formula 18-400 mg-mcg tablet 1 tab PO DAILY Dulera 100-5 mcg/actuation HFA aerosol inhaler 2 inh inhalation BID levothyroxine 100 mcg tablet 100 mcg PO DAILY ondansetron 4 mg tablet,disintegrating 4 mg PO Q8H PRN (Reason: Nausea) carvedilol 3.125 mg Tablet 3.125 mg PO BID Qty: 60 0RF aspirin 81 mg Tablet,Chewable 81 mg PO BREAKFAST Qty: 0 0RF furosemide [Lasix] 40 mg tablet 40 mg PO BIDCM 5 Days Qty: 60 0RF lisinopril 5 mg tablet 5 mg PO DAILY Qty: 30 0RF Changed potassium chloride 10 mEq capsule, extended release 20 meq PO DAILY Qty: 60 0RF Referrals / Follow Up: Marilee Pérez MD [Primary Care Provider] - Within 2 Weeks Disposition Disposition (needs filled in before D/C Order can be placed): Home, Self Care
[2024-01-24] MEDS: Lisinopril 5 MG Tablet PO (10:51)
--- NOTE | 2024-01-24 11:54 | NURSING ---
This Rn called Deanne, Pts mother about cancelled discharge. LEft a message as phone call was not answered.
[2024-01-24] MEDS: 0.9% Saline Lock 10 ML Syringe IV (12:43)
[2024-01-24] MEDS: Furosemide 500 MG in Empty Viaflex 50 mL 1 EACH CONT INF (12:43)
--- NOTE | 2024-01-24 13:11 | CASEMGMT ---
Social Work SW colaberated with physician and charge nurse. Shobha, [facility] office representative in to hospital and states [facility] at [facility]. Pt did have therapy evaluations today and was Mod Ax2 for ambulation of 3 feet and mod A x2 for STS transfers. Per physician, pt's mother was updated and is requesting placement in 1. TCU 2. [facility]. Per physician, pt mother will be in later today to discuss placement with pt and requesting SW does not meet with pt at this time. Referral made to TCU. GERMÁN Knapp
--- NOTE | 2024-01-24 15:22 | PN.HOSP_ITS ---
Reason for Visit Reason for Visit: Diagnoses Heart failure, unspecified (01/23/24) Subjective Subjective Patient was seen and examined today, I talked at length with her [facility]itentiary chief procurement officer and her POA who is her mother about her medical condition, patient requires maximal assistance to get up by 2 people, I do not feel this is due to any fluid retention in her legs, today her legs looked much better as far as her edema was concerned. Due to the fact she is not able to take care of herself [facility] the [facility], I have elected to keep her here and continue her on Lasix for now, she will need placement in a senior care facility of her mobility as does not improve. I talked to the patient's mother about this and she understands. She will bring it up to the patient and a discussion today with the patient. The lengthy discussion I had with the penitentiary chief procurement officer concerning the patient's medical condition lasted approximately 15 to 20 minutes, patient has been told by several doctors that she has heart failure, I emphasized that the patient has no evidence of heart failure on her chest x-ray and that she more than likely has cor pulmonale or right sided heart failure which would cause generalized edema. Patient has a history of sleep apnea. Echocardiogram shows pulmonary hypertension but a normal EF. Objective Data Objective Data Vital Signs: Vital Signs Temp Pulse Resp BP Pulse Ox O2 Del Method O2 Flow Rate 97.9 F 68 19 H 111/83 H 94 Room Air 4 01/24/24 08:43 01/24/24 10:53 01/24/24 08:43 01/24/24 10:53 01/24/24 08:43 01/24/24 08:45 01/23/24 08:30 FiO2 21 01/24/24 02:40 Oxygen Flow Rate (L/min) 4 Oxygen Delivery Method Room Air Weight: 132.7 kg Body Mass Index (BMI) 53.5 Intake & Output: Intake and Output for Last 24 Hours 01/22/24 01/23/24 01/24/24 23:59 23:59 23:59 Intake Total 960 / 960 360 / 360 Output Total 3600 / 3600 750 / 750 Balance -2640 / -2640 -390 / -390 Lab / Micro Data 01/23/24 07:05 01/23/24 07:05 Physical Exam Const alert, oriented x3 and no apparent distress Constitutional Narrative: Patient has class III obesity General Appearance: cooperative, well kempt and well developed Orientation / Consciousness: awake, oriented to person, oriented to place and oriented to time HEENT normocephalic and moist oral mucous membranes Eyes PERRL, EOMs intact bilaterally and conjunctivae normal Neck supple, no JVD and thyroid normal General: trachea midline Resp normal respiratory effort and clear to auscultation bilaterally Auscultation: Negative for rales, rhonchi or wheezes Cardio regular rate, regular rhythm, S1 normal heart sound, S2 normal heart sound, no murmurs, no rub and no gallops GI normal to inspection, nondistended, normoactive bowel sounds, soft to palpation, non-tender and non-distended Extremity Extremity Narrative: There is mild generalized edema noted over the lower legs bilaterally Skin no rashes or lesions noted General Skin Exam: no breakdown Neuro oriented x3, CN's II-XII intact bilaterally, moves all extremities, no focal motor deficits and no sensory deficits noted Sensorium / Orientation: awake and alert Speech: speech normal Psych affect normal Assessment & Plan Assessment/Plan (1) Anasarca: PLAN: Plan 1. Anasarca with acute right cor pulmonale-patient has a history of pulmonary hypertension, I do not believe the patient currently has diastolic heart failure, patient will continue IV diuresis with Lasix #2 pulmonary hypertension-complicates care, management, recovery, and prognosis #3 obesity class III-complicates care, management, recovery, and prognosis #4 acute debility-patient will continue to be seen by PT and OT, she may need short-term placement in senior care facility due to debility #5 Prader-Willi syndrome-complicates care, management, recovery, and prognosis #6 hypothyroidism-patient is to remain on Synthroid Total clinical time spent by myself addressing the patient's medical issues, reviewing all of her data, and collaborating with patient's care team: 50-minute Charges/Coding Visit Charges Inpatient E&M: 90386 [facility] H[facility] L3
[2024-01-25 04:55] VITALS: BP 113/76; PULSE 55; RESP 18; TEMP 36.4; O2SAT 100
[2024-01-25] MEDS: Levothyroxine 100 MCG Tablet PO (05:09)
[2024-01-25 05:19] VITALS: BMI 53.4
[2024-01-25 06:58] VITALS: PULSE 88; RESP 18; O2SAT 97
[2024-01-25] MEDS: Budesonide Respules 0.5 MG/2 ML AMPUL.NEB. INHALATION (06:58)
[2024-01-25 09:05] VITALS: BP 107/76; PULSE 57; RESP 18; TEMP 36.7; O2SAT 100
[2024-01-25] MEDS: Aspirin 81 MG TAB.CHEW PO (09:24)
[2024-01-25] MEDS: Enoxaparin 40 MG/0.4 ML Syringe SC ×2 (09:24→21:50)
[2024-01-25] MEDS: Potassium Chloride Oral Tablet 20 MEQ PO (09:24)
[2024-01-25] MEDS: Carvedilol 3.125 MG TABLET PO ×2 (09:24→21:49)
[2024-01-25] MEDS: Furosemide 40 MG Tablet PO ×2 (09:24→17:27)
[2024-01-25] MEDS: Nystatin Powder 15gm Bottle 1 APPLIC TOPICAL ×2 (09:25→21:50)
[2024-01-25 10:15] LABS: Anion Gap 2 (5-15); BUN 24 mg/dL (7-18); BUN/Creat Ratio 37.3 RATIO (10-20); Calcium,Total 8.5 mg/dL (8.5-10.1); Chloride 103 mmol/L (98-107); Creatinine, Serum 0.64 mg/dL (0.55-1.02); EST Glomerular Filtration Rate 108 mL/min (>60); Est Glom Filt Rate - Afr Amer 130 mL/min (>60); Estimated Creatinine Clearance 151.75 ml/min; Glucose 113 mg/dL (74-106); Potassium 4.2 mmol/L (3.5-5.1); Sodium Level 139 mmol/L (136-145)
--- NOTE | 2024-01-25 14:13 | PCM.PN.HOSP ---
Reason for Visit Reason for Visit: Diagnoses Heart failure, unspecified (01/23/24) Generalized edema (01/23/24) Subjective Subjective Patient was seen and examined today, she voices no specific complaints. I told her that she needs to go to an extended care facility for short-term rehab services, again the patient's skilled nursing was not able to take her back due to debility. Patient is still on oral Lasix at this time and continues to diurese. Patient's creatinine remains normal. Objective Data Objective Data Vital Signs: Vital Signs Temp Pulse Resp BP Pulse Ox O2 Del Method O2 Flow Rate 98.0 F 57 L 18 107/76 100 Room Air 4 01/25/24 09:05 01/25/24 09:05 01/25/24 09:05 01/25/24 09:05 01/25/24 09:05 01/25/24 09:05 01/23/24 08:30 FiO2 21 01/24/24 22:35 Oxygen Flow Rate (L/min) 4 Oxygen Delivery Method Room Air Weight: 132.6 kg Body Mass Index (BMI) 53.4 Intake & Output: Intake and Output for Last 24 Hours 01/23/24 01/24/24 01/25/24 23:59 23:59 23:59 Intake Total 960 / 960 606.28 / 606.28 240 / 240 Output Total 3600 / 3600 2500 / 2500 875 / 875 Balance -2640 / -2640 -1893.72 / -1893.72 -635 / -635 Lab / Micro Data 01/23/24 07:05 01/25/24 09:38 Labs: Laboratory Results - last 24 hr 01/25/24 09:38: Sodium 139, Potassium 4.2, Chloride 103, Carbon Dioxide 33.0 H, Anion Gap 2 L, BUN 24 H, Creatinine 0.64, Estim Creat Clear Calc 151.75, Est GFR (MDRD) Af Amer 130, Est GFR (MDRD) Non-Af 108, BUN/Creatinine Ratio 37.3 H, Glucose 113 H, Calcium 8.5 Physical Exam Narrative alert, oriented x3 and no apparent distress Constitutional Narrative: Patient has class III obesity General Appearance: cooperative, well kempt and well developed Orientation / Consciousness: awake, oriented to person, oriented to place and oriented to time HEENT normocephalic and moist oral mucous membranes Eyes PERRL, EOMs intact bilaterally and conjunctivae normal Neck supple, no JVD and thyroid normal General: trachea midline Resp normal respiratory effort and clear to auscultation bilaterally Auscultation: Negative for rales, rhonchi or wheezes Cardio regular rate, regular rhythm, S1 normal heart sound, S2 normal heart sound, no murmurs, no rub and no gallops GI normal to inspection, nondistended, normoactive bowel sounds, soft to palpation, non-tender and non-distended Extremity Extremity Narrative: There is mild generalized edema noted over the lower legs bilaterally Skin no rashes or lesions noted General Skin Exam: no breakdown Neuro oriented x3, CN's II-XII intact bilaterally, moves all extremities, no focal motor deficits and no sensory deficits noted Sensorium / Orientation: awake and alert Speech: speech normal Psych affect normal Assessment & Plan Assessment/Plan (1) Anasarca: PLAN: Plan 1. Anasarca with acute right cor pulmonale-patient has a history of pulmonary hypertension, I do not believe the patient currently has diastolic heart failure, patient is currently on oral Lasix #2 moderate pulmonary hypertension-complicates care, management, recovery, and prognosis #3 obesity class III-complicates care, management, recovery, and prognosis #4 acute debility-patient will continue to be seen by PT and OT, she will need short-term placement in nursing home facility due to debility #5 Prader-Willi syndrome-complicates care, management, recovery, and prognosis #6 hypothyroidism-patient is to remain on Synthroid Total clinical time spent by myself addressing the patient's medical issues, reviewing all of her data, and collaborating with patient's care team: 35-minute Charges/Coding Visit Charges Inpatient E&M: 80061 Subs Hosp L2
[2024-01-25 15:05] VITALS: BP 106/66; PULSE 63; RESP 18; TEMP 36.9; O2SAT 95
[2024-01-25 21:30] VITALS: BP 111/52; PULSE 65; RESP 16; TEMP 36.6; O2SAT 96
[2024-01-25] MEDS: 0.9% Saline Lock 10 ML Syringe IV (21:51)
--- NOTE | 2024-01-25 23:38 | CPS ---
Pt not ready for bipap yet tonight.
[2024-01-26 01:00] VITALS: PULSE 55; O2SAT 97
[2024-01-26 03:08] VITALS: BMI 53.3
[2024-01-26 03:30] VITALS: BP 103/74; PULSE 50; RESP 18; TEMP 36.3; O2SAT 99
[2024-01-26] MEDS: Levothyroxine 100 MCG Tablet PO (05:43)
[2024-01-26 06:31] LABS: Anion Gap 0 (5-15); BUN 25 mg/dL (7-18); BUN/Creat Ratio 41.1 RATIO (10-20); Chloride 103 mmol/L (98-107); Creatinine, Serum 0.61 mg/dL (0.55-1.02); EST Glomerular Filtration Rate 115 mL/min (>60); Est Glom Filt Rate - Afr Amer 139 mL/min (>60); Estimated Creatinine Clearance 158.99 ml/min; Glucose 92 mg/dL (74-106); Potassium 4.4 mmol/L (3.5-5.1); Sodium Level 136 mmol/L (136-145)
[2024-01-26 06:58] VITALS: PULSE 85; RESP 20
[2024-01-26] MEDS: Budesonide Respules 0.5 MG/2 ML AMPUL.NEB. INHALATION (06:58)
--- NOTE | 2024-01-26 08:46 | PN.HOSP_ITS ---
Reason for Visit Reason for Visit: Diagnoses Heart failure, unspecified (01/23/24) Generalized edema (01/23/24) Subjective Subjective Feels well, wants to go home. Objective Data Objective Data Vital Signs: Vital Signs Temp Pulse Resp BP Pulse Ox O2 Del Method O2 Flow Rate 36.3 C L 50 L 18 103/74 99 Room Air 4 01/26/24 03:30 01/26/24 03:30 01/26/24 03:30 01/26/24 03:30 01/26/24 03:30 01/26/24 08:01 01/23/24 08:30 FiO2 21 01/26/24 01:00 Oxygen Flow Rate (L/min) 4 Oxygen Delivery Method Room Air Weight: 132.3 kg Body Mass Index (BMI) 53.3 Intake & Output: Intake and Output for Last 24 Hours 01/24/24 01/25/24 01/26/24 23:59 23:59 23:59 Intake Total 606.28 / 606.28 480 / 700 220 / 220 Output Total 2500 / 2500 875 / 875 Balance -1893.72 / -1893.72 -395 / -175 220 / 220 Lab / Micro Data 01/23/24 07:05 01/26/24 05:42 Labs: Laboratory Results - last 24 hr 01/25/24 09:38: Sodium 139, Potassium 4.2, Chloride 103, Carbon Dioxide 33.0 H, Anion Gap 2 L, BUN 24 H, Creatinine 0.64, Estim Creat Clear Calc 151.75, Est GFR (MDRD) Af Amer 130, Est GFR (MDRD) Non-Af 108, BUN/Creatinine Ratio 37.3 H, G lucose 113 H, Calcium 8.5 01/26/24 05:42: Sodium 136, Potassium 4.4, Chloride 103, Carbon Dioxide 33.0 H, Anion Gap 0 L, BUN 25 H, Creatinine 0.61, Estim Creat Clear Calc 158.99, Est GFR (MDRD) Af Amer 139, Est GFR (MDRD) Non-Af 115, BUN/Creatinine Ratio 41.1 H, Glucose 92, Calcium 9.0 Physical Exam Const alert and no apparent distress HEENT head/scalp atraumatic and moist oral mucous membranes Resp normal respiratory effort, no retractions, no use of accessory muscles and clear to auscultation bilaterally Cardio regular rate, regular rhythm, S1 normal heart sound and S2 normal heart sound GI normal to inspection, nondistended, normoactive bowel sounds, soft to palpation, non-tender and non-distended Extremity General Extremity: edema bilateral lower extremity Details: moderate (appears improved from when I saw her last month. ) Neuro Sensorium / Orientation: awake and alert Assessment & Plan Assessment/Plan (1) Anasarca: PLAN: Plan Acute HFpEF exacerbation: * on IV furosemide, carvedilol (3.125 BID) * 2d echo on showed normal EF, dilated RV with impair function, moderate TR. pulm pressure of 67mmHg. * Weight back up into the 132 kg. Patient was down to 122 kg on her most recent admission. Previous to that, her weight was 115 kg. Though her chest x-ray does appear to be improved from a month ago and her legs look better than last month. * Change back to furosemide 40 mg twice daily. Patient had recently changed to another diuretic is a salt to be a better option by her skidder runner but that does not like currently on her MAY. We tried to look on Jambo, but the room server is currently down some not able to see what she may have actually been changed to. Patient states that she has a follow-up appoint with a skidder runner tomorrow. * Fluid restrict to 1.5 L/day. Pulmonary HTN * unclear type. (suspect group 2 or 3 from underlying CHF and DACIA) * d-dimer elevated, but CTA chest negative for PE. * DW Dr. Ceja on 12/29: pt known to be non-compliant with CPAP. She will need to follow up in the office to see about getting set up for BiPAP. Chronic conditions: * COPD: stable * hypothyroidism: on levothyroxine * obesity class III: complicates care and recovery. * Prader-Willi syndrome: complicates care and recovery. 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 VTE prophylaxis: LMWH Disposition: Back to longterm.
[2024-01-26 09:25] VITALS: BP 119/76; PULSE 60; RESP 18; TEMP 36.8; O2SAT 98
--- NOTE | 2024-01-26 09:26 | CASEMGMT ---
Addendum entered by Mima Zepeda 01/26/24 11:23: [facility] declined referral. Mima Zepeda DC Planning Asst. Original Note: Discharge Planning Referral sent via [facility] to [facility]. Mima Zepeda DC Planning Asst.
[2024-01-26] MEDS: Carvedilol 3.125 MG TABLET PO (09:28)
[2024-01-26] MEDS: Potassium Chloride Oral Tablet 20 MEQ PO (09:28)
[2024-01-26] MEDS: Nystatin Powder 15gm Bottle 1 APPLIC TOPICAL (09:29)
[2024-01-26] MEDS: Enoxaparin 40 MG/0.4 ML Syringe SC (09:29)
[2024-01-26] MEDS: Aspirin 81 MG TAB.CHEW PO (09:29)
--- NOTE | 2024-01-26 12:17 | CASEMGMT ---
KE viewed patient's therapy notes and patient is doing much better today. Patient walked 400' at assist. KE called Shobha with patient's halfway and let her know this information. KE asked Shobha if she would like KE to send her today's therapy notes so she can review them and let KE know if patient can return. Shobha's fax number is [phone]. KE faxed today's PT/OT notes. [facility] and [facility] have declined patient. Ruby Laughlin SHELLACKER ASHVIN
--- NOTE | 2024-01-26 13:35 | CASEMGMT ---
KE received a return call from Rafia, nurse with patient's long-term. Rafia reviewed patient's therapy notes and said they are okay with patient returning as long as [facility] can get patient a walker. Rafia also asked what diuretic medication patient is going to be discharged on. KE told Rafia SW can get patient a walker prior to leaving. KE will ask the physician what diuretic patient will be discharged on. KE notified physician patient can return to the long-term when ready. Physician signed prescription for a wheeled walker. KE called patient's mom Deanne and let her know patient will be able to return to the long-term at discharge as she is doing much better. KE let Deanne know that Rafia would like patient to have a walker so [facility] will get patient one before she is discharged. Deanne had no preference for [facility] and was fine with [facility]. Ruby Laughlin TELEVISION NEWS VIDEO EDITOR ASHVIN
[2024-01-26] MEDS: Furosemide 40 MG Tablet PO (14:01)
--- NOTE | 2024-01-26 15:00 | PCM.DC.SUM ---
Providers Date of Admission: 01/23/24 Primary Care Physician: Dr. Marilee Pérez MD Reason For Visit: HF EXACERBATION Diagnosis Discharge Diagnosis (1) Anasarca: Status: Acute Code(s): R60.1 - Generalized edema Plan Acute HFpEF exacerbation: on IV furosemide, carvedilol (3.125 BID) 2d echo on showed normal EF, dilated RV with impair function, moderate TR. pulm pressure of 67mmHg. Weight back up into the 132 kg. Patient was down to 122 kg on her most recent admission. Previous to that, her weight was 115 kg. Though her chest x-ray does appear to be improved from a month ago and her legs look better than last month. Change back to furosemide 40 mg twice daily. Patient had recently changed to another diuretic is a salt to be a better option by her exploration manager but that does not like currently on her MAR. We tried to look on SAVO, but the toll service observer is currently down some not able to see what she may have actually been changed to. Patient states that she has a follow-up appoint with a exploration manager tomorrow. Fluid restrict to 1.5 L/day. Pulmonary HTN unclear type. (suspect group 2 or 3 from underlying CHF and DACIA) d-dimer elevated, but CTA chest negative for PE. DW Dr. Ceja on 12/29: pt known to be non-compliant with CPAP. She will need to follow up in the office to see about getting set up for BiPAP. Chronic conditions: COPD: stable hypothyroidism: on levothyroxine obesity class III: complicates care and recovery. Prader-Willi syndrome: complicates care and recovery. 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 VTE prophylaxis: LMWH Disposition: [facility] [place] [facility]. The patient is unsafe to use a cane and requires a walker for ambulation in the home and the community. Medications at Discharge Home Medications ammonium lactate 12 % topical cream 1 applicatio topical DAILY skin 10/26/13 calcium 600 mg (as carbonate)-vitamin D3 10 mcg (400 unit) tablet 1 ea PO BID supplement 10/26/13 omega-3 fatty acids-fish oil 300 mg-500 mg capsule 1 ea PO DAILY supplement 10/26/13 epinephrine 0.3 mg/0.3 mL injection, auto-injector 0.3 mg IM X1 PRN Anaphylaxis 06/01/16 nystatin 100,000 unit/gram topical powder 1 applic topical BID rash 06/01/16 clotrimazole 1 % topical cream 1 applic topical BID skin 04/08/17 fluticasone propionate 50 mcg/actuation nasal spray,suspension 50 mcg intranasal ONCE 04/08/17 albuterol sulfate 90 mcg/actuation aerosol inhaler 2 puff inhalation Q6H PRN shortness of breath or wheezing 05/22/21 norethindrone (contraceptive) 0.35 mg tablet (Arianna) 0.35 mg PO QDAY #84 tabs 06/02/23 dicyclomine 10 mg capsule 20 mg (2 x 10 mg) PO TIDAC #20 CAPSULES 12/23/23 diphenoxylate-atropine 2.5 mg-0.025 mg tablet (Lomotil) 1 tab PO Q6H PRN diarrhea #14 tabs 12/23/23 levothyroxine 100 mcg tablet 100 mcg PO DAILY thyroid 12/26/23 mometasone-formoterol HFA 100 mcg-5 mcg/actuation aerosol inhaler (Dulera) 2 inh inhalation BID breathing 12/26/23 multivitamin-ferrous fumarate-folic acid 18 mg-400 mcg tablet (A Thru Z Advanced Formula) 1 tab PO DAILY 12/26/23 ondansetron 4 mg disintegrating tablet 4 mg PO Q8H PRN Nausea 12/26/23 aspirin 81 mg chewable tablet 81 mg PO BREAKFAST heart health #0 tabs 01/02/24 carvedilol 3.125 mg tablet 3.125 mg PO BID heart health #60 tabs 01/02/24 furosemide 40 mg tablet (Lasix) 40 mg PO BIDCM diuretic 5 days #60 tabs 01/02/24 lisinopril 5 mg tablet 5 mg PO DAILY blood pressure #30 tabs 01/02/24 potassium chloride 10 mEq capsule,extended release 20 meq (2 x 10 mEq) PO DAILY #60 caps 01/24/24 Weight / BMI Weight Weight: 132.3 kg Body Mass Index (BMI) 53.3 ABG / Lab / Microbiology Data 01/23/24 07:05 01/26/24 05:42 Laboratory: Laboratory Results - last 24 hr 01/26/24 05:42: Sodium 136, Potassium 4.4, Chloride 103, Carbon Dioxide 33.0 H, Anion Gap 0 L, BUN 25 H, Creatinine 0.61, Estim Creat Clear Calc 158.99, Est GFR (MDRD) Af Amer 139, Est GFR (MDRD) Non-Af 115, BUN/Creatinine Ratio 41.1 H, Glucose 92, Calcium 9.0 D/C Instructions Discharge Diet: - (Resume previous diet) Weight Bearing Status: Full weight bearing Meaningful Use Info Meaningful Use Meaningful Use Diagnoses (Choose all that apply): None applicable Ischemic Stroke Statin Dosing Therapy Reference: STATIN DOSE THERAPY REFERENCE: * Patients > 75 years receive moderate or high dose statin therapy. * Patients 75 years or YOUNGER should receive HIGH intensity statin dose unless contraindicated. You will be required to document reason for non-treatment if statin daily dose does not meet guidelines. HIGH DOSE STATIN THERAPY DAILY Atorvastatin > than or = to 40 mg Rosuvastatin > than or = to 20 mg Amlodipine + Atorvastatin > than or = to 2.5/40 mg Ezetimibe + Simvastatin 10/80 mg Simvastatin 80mg Discharge Plan Admission Admit Date/Time: 01/23/24 01:48 Primary Reason for Your Visit: Marisa Attending Provider: Manuel Garay Primary Care Provider: Marilee Pérez Consulting Providers: Cinthia Torres; Jagdeep Montalvo Instructions Additional Instructions / Restrictions: I am not sure what water pill (diuretic) and your exploration manager put you on. Continue with the Lasix as you were previously and then follow-up with your exploration manager at your appointment on the . Discharge Orders/Prescriptions Prescriptions: Continued fluticasone propionate 50 mcg/actuation spray,suspension 50 mcg INTRANASAL ONCE clotrimazole 1 % cream 1 applic TOPICAL BID albuterol sulfate 90 mcg/actuation HFA aerosol inhaler 2 puff inhalation Q6H PRN (Reason: shortness of breath or wheezing) norethindrone (contraceptive) [Arianna] 0.35 mg tablet 0.35 mg PO QDAY Qty: 84 4RF ammonium lactate 140 GM cream 1 applicatio TOPICAL DAILY Patient Comments: skin health omega-3 fatty acids-fish oil 1 EACH capsule 1 ea PO DAILY Patient Comments: supplement calcium carbonate-vitamin D3 1 EACH tablet 1 ea PO BID Patient Comments: supplement nystatin 1 APPLIC bottle 1 applic TOPICAL BID epinephrine 0.3 MG syringe 0.3 mg IM X1 PRN (Reason: Anaphylaxis) dicyclomine 10 mg capsule 20 mg PO TIDAC Qty: 20 0RF diphenoxylate-atropine [Lomotil] 2.5-0.025 mg tablet 1 tab PO Q6H PRN (Reason: diarrhea) Qty: 14 0RF A Thru Z Advanced Formula 18-400 mg-mcg tablet 1 tab PO DAILY Dulera 100-5 mcg/actuation HFA aerosol inhaler 2 inh inhalation BID levothyroxine 100 mcg tablet 100 mcg PO DAILY ondansetron 4 mg tablet,disintegrating 4 mg PO Q8H PRN (Reason: Nausea) carvedilol 3.125 mg Tablet 3.125 mg PO BID Qty: 60 0RF aspirin 81 mg Tablet,Chewable 81 mg PO BREAKFAST Qty: 0 0RF furosemide [Lasix] 40 mg tablet 40 mg PO BIDCM 5 Days Qty: 60 0RF lisinopril 5 mg tablet 5 mg PO DAILY Qty: 30 0RF Changed potassium chloride 10 mEq capsule, extended release 20 meq PO DAILY Qty: 60 0RF Referrals / Follow Up: Marilee Pérez MD [Primary Care Provider] - Within 2 Weeks Disposition Disposition (needs filled in before D/C Order can be placed): Home, Self Care Charges/Coding Visit Charges Inpatient E&M: [id number] Disch Hosp
[2024-01-26 15:03] VITALS: BP 119/76; PULSE 60; RESP 18; TEMP 36.8; O2SAT 98
--- NOTE | 2024-01-26 15:22 | PHA.DC.MR.R ---
Pharmacy [place] Med Reconciliation Pharmacy Service has performed discharge medication reconciliation for this patient. The patient's discharge medication list was reviewed for discrepancies and discrepancies were resolved. Medications at Discharge Home Medications ammonium lactate 12 % topical cream 1 applicatio topical DAILY skin 10/26/13 calcium 600 mg (as carbonate)-vitamin D3 10 mcg (400 unit) tablet 1 ea PO BID supplement 10/26/13 omega-3 fatty acids-fish oil 300 mg-500 mg capsule 1 ea PO DAILY supplement 10/26/13 epinephrine 0.3 mg/0.3 mL injection, auto-injector 0.3 mg IM X1 PRN Anaphylaxis 06/01/16 nystatin 100,000 unit/gram topical powder 1 applic topical BID rash 06/01/16 clotrimazole 1 % topical cream 1 applic topical BID skin 04/08/17 fluticasone propionate 50 mcg/actuation nasal spray,suspension 50 mcg intranasal ONCE 04/08/17 albuterol sulfate 90 mcg/actuation aerosol inhaler 2 puff inhalation Q6H PRN shortness of breath or wheezing 05/22/21 norethindrone (contraceptive) 0.35 mg tablet (Arianna) 0.35 mg PO QDAY #84 tabs 06/02/23 dicyclomine 10 mg capsule 20 mg (2 x 10 mg) PO TIDAC #20 CAPSULES 12/23/23 diphenoxylate-atropine 2.5 mg-0.025 mg tablet (Lomotil) 1 tab PO Q6H PRN diarrhea #14 tabs 12/23/23 levothyroxine 100 mcg tablet 100 mcg PO DAILY thyroid 12/26/23 mometasone-formoterol HFA 100 mcg-5 mcg/actuation aerosol inhaler (Dulera) 2 inh inhalation BID breathing 12/26/23 multivitamin-ferrous fumarate-folic acid 18 mg-400 mcg tablet (A Thru Z Advanced Formula) 1 tab PO DAILY 12/26/23 ondansetron 4 mg disintegrating tablet 4 mg PO Q8H PRN Nausea 12/26/23 aspirin 81 mg chewable tablet 81 mg PO BREAKFAST heart health #0 tabs 01/02/24 carvedilol 3.125 mg tablet 3.125 mg PO BID heart health #60 tabs 01/02/24 furosemide 40 mg tablet (Lasix) 40 mg PO BIDCM diuretic 5 days #60 tabs 01/02/24 lisinopril 5 mg tablet 5 mg PO DAILY blood pressure #30 tabs 01/02/24 potassium chloride 10 mEq capsule,extended release 20 meq (2 x 10 mEq) PO DAILY #60 caps 01/24/24
--- NOTE | 2024-01-26 15:42 | CASEMGMT ---
KE called Rafia with [facility] and let her know patient will be discharged today. Patient will continue on Lasix. Rafia said patient was not on Lasix her Supervisor Plasma put her on another diuretic. KE notified physician and he said patient has an appt with her Supervisor Plasma tomorrow. Patient can take the medication her Supervisor Plasma prescribed and not the Lasix. KE called Rafia and let her know this information. Rafia said they will need the discharge instructions to say which medications to take. Patient's Supervisor Plasma prescribed Torsemide 20 mg twice a day. Rafia said they will need the discharge instructions to reflect no Lasix and Torsemide instead. KE notified physician. KE sent prescription for front wheeled walker to [facility]. KE sent resumption order for home health to [facility]. KE called patient's mom and let her know patient will be discharged back to the [facility] today. Ruby Laughlin VENUE MANAGER ASHVIN
--- NOTE | 2024-01-26 16:20 | CASEMGMT ---
Medications were adjusted and new list sent to [facility], Rafia with [facility], and [facility]. Christopher delivered walker to patient's room. KE called Rafia and let her know they can come and strip picker patient. KE notified RODRÍGUEZ. Ruby Laughlin PERSONAL HEALTH COACH ASHVIN
== END 2024-01-26 17:12 | disposition home health service (06) | DRG 280 ==
LOC: ED 01-23 01:53 → PCU 01-23 01:58
PROVIDERS: Internal Medicine; Admitting Provider Family Medicine; Emergency Provider Emergency Medicine; PCP Internal Medicine
DX: I11.0 Hypertensive heart disease with heart failure (principal); I21.4 Non-ST elevation (NSTEMI) myocardial infarction; I50.31 Acute diastolic (congestive) heart failure; Z68.43 Body mass index [BMI] 50.0-59.9, adult; Q87.11 Prader-Willi syndrome; I27.81 Cor pulmonale (chronic); I27.20 Pulmonary hypertension, unspecified; J44.9 Chronic obstructive pulmonary disease, unspecified; E03.9 Hypothyroidism, unspecified; E66.01 Morbid (severe) obesity due to excess calories; G47.33 Obstructive sleep apnea (adult) (pediatric); J30.9 Allergic rhinitis, unspecified; R60.1 Generalized edema; Z79.51 Long term (current) use of inhaled steroids; Z79.82 Long term (current) use of aspirin; Z99.89 Dependence on other enabling machines and devices; Z79.899 Other long term (current) drug therapy; Z79.890 Hormone replacement therapy; Z88.8 Allergy status to other drugs, medicaments and biological substances
CPT/HCPCS: 36415; 71045; 80048; 80053; 81001; 83735; 83880; 84484; 85025; 93005; 94002; 94003; 94640; 97116; 97163; 97165; 97530; 97535; 99285; A4216; J1940

== ENCOUNTER 2024-02-17 13:50 | Inpatient (IN) | payer MEDICARE, MEDICAID, SELFPAY ==
[2024-02-17] VITALS (7 sets, daily range): BP systolic 74–122; BP diastolic 45–95; PULSE 55–66; RESP 14–20; TEMP 36.1–36.9; O2SAT 95–100; BMI 57.6; BMI 56.6
[2024-02-17 14:19] LABS: Bedside Glucose 112 mg/dL (74-106)
--- NOTE | 2024-02-17 14:20 | EKG12_ITS ---
Test Reason : WEAKNES Blood Pressure : */* mmHG Vent. Rate : 61 BPM Atrial Rate : 61 BPM P-R Int : 136 ms QRS Dur : 90 ms QT Int : 422 ms P-R-T Axes : 55 8 27 degrees QTcB Int : 424 ms Normal sinus rhythm Normal ECG Confirmed by ALTAF FERNANDES, YUSUF ([id number]), editorial assistant PAMELA JASSO ([id number]) on 02/18/2024 11:41:37 AM Referred By: Confirmed By: YUSUF SOLITARIO MD
--- NOTE | 2024-02-17 14:25 | RAD_ITS ---
STUDY: X-RAY CHEST REASON FOR EXAM: Female, 43 years old. Bibasilar rales, edema TECHNIQUE: Single AP portable view of the chest. COMPARISON: Comparison is made with prior study of January 23, 2024. FINDINGS: EKG electrodes are seen. There is evidence of vascular congestion and a mild degree of CHF. There is no demonstrated pleural abnormality. There is moderate cardiac enlargement. Normal mediastinum and jennie. Normal visualized pulmonary arteries. Normal visualized aortic arch and descending thoracic aorta. Normal visualized thoracic spine. Normal visualized ribs, clavicles, and shoulders. There is no demonstrated abnormality of the visualized soft tissue structures of the upper abdomen. RAD/Chest 1 View (Portable) IMPRESSION: Cardiomegaly. Vascular congestion and CHF. Electronically Signed: Daniel Boykin MD at 14:54 EST ,
[2024-02-17 14:36] LABS: Absolute Lymphocyte Count 1.91 X10^3/uL (0.83-4.51); Basophil# 0.05 X10^3/uL; Basophil% 0.4 % (0-1); Eosinophil# 0.25 X10^3/uL; Hematocrit 35.3 % (37-47); Hemoglobin 11.2 g/dL (12.0-15.0); Lymphocyte # 1.91 X10^3/ul (0.83-4.51); Lymphocyte % 14.9 % (19-41); Mean Corp Hgb Conc 31.7 g/dL (32-36); Mean Corpuscular Hgb 31.7 pg (27.0-32.0); Mean Platelet Vol. 11.3 fl (6.2-12.0); Monocyte# 1.53 X10^3/uL; Monocyte% 11.9 % (0-10); NRBC Flagged by Analyzer 0 % (0-5); Neutrophil % 70.3 % (47-70); POSITIVE DIFFERENTIAL YES; Platelet Count 225 K/mm3 (150-450); RBC Distribution Width CV 13.5 % (11.6-14.6); RBC Distribution Width SD 49.9 fl (35.1-43.9); Red Blood Count 3.53 M/mm3 (4.2-5.4); White Blood Count 12.8 K/mm3 (4.4-11.0)
[2024-02-17 14:39] LABS: Differential Indicated SCAN CRITERIA MET
--- NOTE | 2024-02-17 14:47 | ED.RN ---
Dr. Jones notified of critical BUN of 146
[2024-02-17 14:48] LABS: Anion Gap 5 (5-15); BUN 146 mg/dL (7-18); BUN/Creat Ratio 73.4 RATIO (10-20); Calcium,Total 9.2 mg/dL (8.5-10.1); Chloride 92 mmol/L (98-107); Creatinine, Serum 1.99 mg/dL (0.55-1.02); EST Glomerular Filtration Rate 29 mL/min (>60); Est Glom Filt Rate - Afr Amer 35 mL/min (>60); Estimated Creatinine Clearance 47.49 ml/min; Glucose 102 mg/dL (74-106); Potassium 4.9 mmol/L (3.5-5.1); Sodium Level 134 mmol/L (136-145)
[2024-02-17 15:01] LABS: BNP,B-Type NATRIURETIC PEPTIDE 25.1 pg/mL (0-100)
--- NOTE | 2024-02-17 15:15 | EDS_ITS ---
HPI History of Present Illness Chief Complaint: Dizziness [facility] Medical History (HFpEF) heart failure with preserved ejection fraction Menorrhagia with regular cycle Cystocele with incomplete uterovaginal prolapse Enlarged RV (right ventricle) Prader-Willi syndrome Morbid obesity with BMI of 40.0-44.9, adult Sleep apnea COPD (chronic obstructive pulmonary disease) HTN (hypertension) Hypothyroidism Morbid obesity with body mass index (BMI) greater than or equal to 50 DACIA treated with BiPAP Prader-Willi syndrome Home Medications ?Medication ?Instructions ?Recorded ?Last Taken ?Type ammonium lactate 12 % topical cream 1 applicatio topical DAILY skin 10/26/13 12/26/23 History calcium 600 mg (as 1 ea PO BID supplement 10/26/13 12/26/23 History carbonate)-vitamin D3 10 mcg (400 unit) tablet omega-3 fatty acids-fish oil 300 1 ea PO DAILY supplement 10/26/13 12/26/23 History mg-500 mg capsule epinephrine 0.3 mg/0.3 mL 0.3 mg IM X1 PRN Anaphylaxis 06/01/16 Unknown History injection, auto-injector nystatin 100,000 unit/gram topical 1 applic topical BID rash 06/01/16 12/26/23 History powder clotrimazole 1 % topical cream 1 applic topical BID skin 04/08/17 12/26/23 History fluticasone propionate 50 50 mcg intranasal ONCE 04/08/17 12/26/23 History mcg/actuation nasal spray,suspension albuterol sulfate 90 mcg/actuation 2 puff inhalation Q6H PRN 05/22/21 Unknown History aerosol inhaler shortness of breath or wheezing norethindrone (contraceptive) 0.35 0.35 mg PO QDAY #84 tabs 06/02/23 12/26/23 Rx mg tablet (Arianna) dicyclomine 10 mg capsule 20 mg (2 x 10 mg) PO TIDAC #20 12/23/23 12/26/23 Rx CAPSULES diphenoxylate-atropine 2.5 1 tab PO Q6H PRN diarrhea #14 tabs 12/23/23 Unknown Rx mg-0.025 mg tablet (Lomotil) levothyroxine 100 mcg tablet 100 mcg PO DAILY thyroid 12/26/23 12/26/23 History mometasone-formoterol HFA 100 2 inh inhalation BID breathing 12/26/23 12/26/23 History mcg-5 mcg/actuation aerosol inhaler (Dulera) multivitamin-ferrous 1 tab PO DAILY 12/26/23 12/26/23 History fumarate-folic acid 18 mg-400 mcg tablet (A Thru Z Advanced Formula) ondansetron 4 mg disintegrating 4 mg PO Q8H PRN Nausea 12/26/23 12/26/23 History tablet aspirin 81 mg chewable tablet 81 mg PO BREAKFAST heart health #0 01/02/24 Unknown Rx tabs carvedilol 3.125 mg tablet 3.125 mg PO BID heart health #60 01/02/24 Unknown Rx tabs lisinopril 5 mg tablet 5 mg PO DAILY blood pressure #30 01/02/24 Unknown Rx tabs potassium chloride 10 mEq 20 meq (2 x 10 mEq) PO DAILY #60 01/24/24 12/26/23 Rx capsule,extended release caps torsemide 20 mg tablet 20 mg PO DAILY #30 tabs 01/26/24 Unknown Rx Allergy/AdvReac Type Severity Reaction Status Date / Time insect venom (insect bites) Allergy Intermediate Itching Verified 02/17/24 13:53 phenytoin sodium (From Allergy Unknown Verified 02/17/24 13:53 Dilantin) phenytoin sodium extended Allergy Unknown Verified 02/17/24 13:53 (From Dilantin) venom-honey bee (bee venom Allergy Unknown Verified 02/17/24 13:53 (honey bee)) Family History Grandmother Diabetes Heart disease Hypertension Mother Diabetes Grandfather Hypertension Father No problems noted. Surgical History History of tonsillectomy and adenoidectomy Social History household members: none housing: other details: [facility]. Smoking Status: Never smoker alcohol intake: never substance use type: does not use caffeine: Yes frequency: daily seatbelt use: always do you feel safe at home: Yes additional social history: [employer] EXAM Physical Exam Const Vital Signs: 02/17/24 13:54 Temperature 98.2 F Temperature Source Oral Pulse Rate 63 Respiratory Rate 20 H Blood Pressure 96/61 Blood Pressure Mean 72 Oxygen Delivery Method Room Air MDM MDM MDM Narrative Medical decision making narrative: Patient is hypotensive. Patient's Lasix was recently doubled. Patient endorses thirst and clinically is dry. Concern patient hypotension is due to hypovolemia. Will obtain CBC to assess white count and differential and rule out anemia. Electrolyte panel was obtained to assess BUN/creatinine and electrolytes. With her having increased urination concern for hypokalemia especially since her loop diuretic was doubled. With history of heart failure BNP was obtained since she is edematous. Patient did receive 1 L of normal saline for her hypotension. History & Record Review Additional record(s) reviewed:: Prior inpatient record (Recent hospitalization, January 2024. She was admitted for anasarca. She had acute heart failure with preserved ejection fraction. 2D echo was performed December 26 and showed a normal EF and dilated right ventricle with impaired function. There is also moderate tricuspid regurgitation. Pulmona), Prior ED visit and Prior labs Lab Data Attestation: I reviewed the patient's lab results. Lab results narrative: White count is slightly elevated with slight shift. H&H is 11.2 and 35.3 with an MCV of 100. BUN and creatinine were 25 and 0.6. Today BUN/creatinine is 146 and 199. Suspect patient was over diuresed with acute kidney injury. Labs: Laboratory Results - last 24 hr 02/17/24 02/17/24 02/17/24 14:00 14:01 14:37 WBC 12.8 H RBC 3.53 L Hgb 11.2 L Hct 35.3 L MCV 100.0 H MCH 31.7 MCHC 31.7 L RDW Std Deviation 49.9 H RDW Coeff of Denzel 13.5 Plt Count 225 MPV 11.3 Immature Gran % (Auto) 0.500 Neut % (Auto) 70.3 H Lymph % (Auto) 14.9 L [place] % (Auto) 11.9 H Eos % (Auto) 2.0 Baso % (Auto) 0.4 Absolute Neuts (auto) 9.0 H Absolute Lymphs (auto) 1.91 Nucleated RBC % 0 Diff Path Review May foll Sodium 134 L Potassium 4.9 Chloride 92 L Carbon Dioxide 37.0 H Anion Gap 5 BUN 146 H* Creatinine 1.99 H Estim Creat Clear Calc 47.49 Est GFR (MDRD) Af Amer 35 L Est GFR (MDRD) Non-Af 29 L BUN/Creatinine Ratio 73.4 H Glucose 102 Lactic Acid 0.6 Calcium 9.2 B-Natriuretic Peptide 25.1 POC Glucose 112 H Radiography Chest X-Ray - ED: 1 View and Read by ED Physician (Patient has evidence of cardiomegaly. There is increased interstitial markings. This may represent heart failure. Doubt since her BNP is 25. This may also be due to the fact that her BMI is approximately 60.) Diagnostic Testing: Clinical Impression(s) from Imaging Studies Chest X-Ray 02/17/24 14:25 IMPRESSION: Cardiomegaly. Vascular congestion and CHF. Electronically Signed: Daniel Boykin MD at 14:54 EST , EKG Initial EKG: Attestation: I personally reviewed and interpreted this EKG as follows: Interpretation: Sinus Rhythm (Sinus rhythm rate of 61. EKG is normal. MD interval is 136 ms. QRS duration 90 ms. QT duration 422 ms. Lyndon is normal.) Discharge Plan Dx/Rx/DC Orders Clinical Impression: Acute prerenal azotemia, Prader-Willi syndrome, Acute kidney injury, Hypotension due to hypovolemia, History of chronic CHF Disposition Disposition: Acute Care [facility]
[2024-02-17 15:18] LABS: Lactic Acid 0.6 mmol/L (0.4-1.9)
--- NOTE | 2024-02-17 15:31 | PCM.HP.STD ---
HPI - General General Date of Admission: 02/17/24 Date of Service: 02/17/24 Chief Complaint: Dizziness HPI Narrative JOSE ABDUL, is a 43 F who presented to [facility] ED on 02/17/2024 with dizziness. Patient has history of Prader Willi syndrome , lives in a [facility]. She was hospitalized here from 01/21-01/25 for an acute HFpEF exacerbation. She was discharged home on Lasix 40 mg twice daily and on a 1.5 L/day fluid restriction. She reported feeling more dizzy at her [facility] over the past few days and it was noted that she seemed more confused than her normal, so she was brought in for further evaluation. She was mildly hypotensive on arrival to the ED to the 90s over 50s. Labs were notable for creatinine 1.99 and BUN 146. Baseline creatinine is around 0.6. Chest x-ray did show a mild degree of CHF with vascular congestion but patient was breathing comfortably on room air at rest with oxygen saturations in the mid to high 90s. Given her DEJA with very high BUN and concern for overdiuresis, hospitalist was contacted for admission. I saw the patient at bedside in the ED, patient's guardian from the [facility] was present. Patient was sitting up in bed comfortably and in no acute distress. She made appropriate eye contact with me but was not answering questions with more than 1-2 word responses. She did seem slightly altered to me. She otherwise was breathing comfortably on room air at rest and did not appear to be in any pain. Will be admitted for further management. [facility] Medical History (Updated 02/17/24 @ 21:[address] Marbin Lizama, DO) Hypothyroidism Non-smoker CPAP (continuous positive airway pressure) dependence Asthma Chest pain DVT (deep venous thrombosis) (HFpEF) heart failure with preserved ejection fraction HTN (hypertension) DACIA treated with BiPAP Morbid obesity with body mass index (BMI) greater than or equal to 50 Menorrhagia with regular cycle Cystocele with incomplete uterovaginal prolapse Prader-Willi syndrome Enlarged RV (right ventricle) COPD (chronic obstructive pulmonary disease) Hypothyroidism Prader-Willi syndrome Morbid obesity with BMI of 40.0-44.9, adult Sleep apnea Home Medications ?Medication ?Instructions ?Recorded ?Last Taken ?Type ammonium lactate 12 % topical cream 1 applicatio topical DAILY skin 10/26/13 12/26/23 History calcium 600 mg (as 1 ea PO BID supplement 10/26/13 12/26/23 History carbonate)-vitamin D3 10 mcg (400 unit) tablet epinephrine 0.3 mg/0.3 mL 0.3 mg IM X1 PRN Anaphylaxis 06/01/16 Unknown History injection, auto-injector nystatin 100,000 unit/gram topical 1 applic topical BID rash 06/01/16 12/26/23 History powder clotrimazole 1 % topical cream 1 applic topical BID skin 04/08/17 12/26/23 History fluticasone propionate 50 50 mcg intranasal ONCE 04/08/17 12/26/23 History mcg/actuation nasal spray,suspension albuterol sulfate 90 mcg/actuation 2 puff inhalation Q6H PRN 05/22/21 Unknown History aerosol inhaler shortness of breath or wheezing norethindrone (contraceptive) 0.35 0.35 mg PO QDAY #84 tabs 06/02/23 12/26/23 Rx mg tablet (Arianna) levothyroxine 100 mcg tablet 100 mcg PO DAILY thyroid 12/26/23 12/26/23 History mometasone-formoterol HFA 100 2 inh inhalation BID breathing 12/26/23 12/26/23 History mcg-5 mcg/actuation aerosol inhaler (Dulera) multivitamin-ferrous 1 tab PO DAILY 12/26/23 12/26/23 History fumarate-folic acid 18 mg-400 mcg tablet (A Thru Z Advanced Formula) aspirin 81 mg chewable tablet 81 mg PO BREAKFAST heart health #0 01/02/24 Unknown Rx tabs carvedilol 3.125 mg tablet 3.125 mg PO BID heart health #60 01/02/24 Unknown Rx tabs lisinopril 5 mg tablet 5 mg PO DAILY blood pressure #30 01/02/24 Unknown Rx tabs potassium chloride 10 mEq 20 meq (2 x 10 mEq) PO DAILY #60 01/24/24 12/26/23 Rx capsule,extended release caps torsemide 20 mg tablet 20 mg PO DAILY #30 tabs 01/26/24 Unknown Rx magnesium oxide 400 mg (241.3 mg 400 mg PO DAILY 02/17/24 Unknown History magnesium) tablet metolazone 2.5 mg tablet 2.5 mg PO DAILY 02/17/24 Unknown History omega-3 fatty acids 1,000 mg 1,000 mg PO DAILY 02/17/24 Unknown History capsule Allergy/AdvReac Type Severity Reaction Status Date / Time insect venom (insect bites) Allergy Intermediate Itching Verified 02/17/24 13:53 phenytoin sodium (From Allergy Unknown Verified 02/17/24 13:53 Dilantin) phenytoin sodium extended Allergy Unknown Verified 02/17/24 13:53 (From Dilantin) venom-honey bee (bee venom Allergy Unknown Verified 02/17/24 13:53 (honey bee)) Family History Grandmother Diabetes Heart disease Hypertension Mother Diabetes Grandfather Hypertension Father No problems noted. Surgical History (Updated 02/17/24 @ 16:57 by Stefany Kumar) History of coronary artery stent placement History of tonsillectomy and adenoidectomy Social History household members: none housing: other details: long term. Smoking Status: Never smoker alcohol intake: never substance use type: does not use caffeine: Yes frequency: daily seatbelt use: always do you feel safe at home: Yes additional social history: [employer] Constitutional Constitutional: Denies chills, fatigue, fever(s) or weakness Cardiovascular Cardiovascular: Denies chest pain Respiratory/Chest Respiratory/Chest: Denies shortness of breath at rest Gastrointestinal Gastrointestinal: Denies abdominal pain Neurologic Neurologic: Reports dizziness; Denies headache(s) Vital Signs Vital Signs Vital Signs: 02/17/24 13:54 Temperature 98.2 F Temperature Source Oral Pulse Rate 63 Respiratory Rate 20 H Blood Pressure 96/61 Blood Pressure Mean 72 Oxygen Delivery Method Room Air Weight Weight: 133.9 kg Body Mass Index (BMI) 57.6 Physical Exam Const alert, oriented x3 and no apparent distress Constitutional Narrative: Middle-age female, class III obesity, mildly fatigued appearing, otherwise sitting up comfortably in bed, answering questions with short appropriate responses, in no acute distress. General Appearance: cooperative and comfortable HEENT normocephalic, head/scalp atraumatic, hearing grossly normal bilaterally and nasal mucous membranes and turbinates normal HEENT Narrative: Dry mucous membranes. Eyes PERRL, EOMs intact bilaterally and conjunctivae normal Neck full ROM Chest inspection of chest normal Resp normal respiratory effort and no use of accessory muscles Resp Narrative: Breathing comfortably on room air at rest. Diminished breath sounds bilaterally throughout due to body habitus. No wheezing or crackles noted. Cardio regular rate, regular rhythm, no murmurs and peripheral pulses 2+ throughout GI normal to inspection, nondistended, normoactive bowel sounds, soft to palpation, non-tender and non-distended Back/Spine normal ROM Extremity Extremity Narrative: Significant lower extremity lymphedema noted down to the ankles. Notably has no noticeable swelling in her feet. Neuro moves all extremities Sensorium / Orientation: awake and alert Psych mental status grossly normal Results Lab / Micro Data 02/17/24 14:00 02/17/24 14:00 Labs: Laboratory Results - last 24 hr 02/17/24 14:00: WBC 12.8 H, RBC 3.53 L, Hgb 11.2 L, Hct 35.3 L, MCV 100.0 H, MCH 31.7, MCHC 31.7 L, RDW Std Deviation 49.9 H, RDW Coeff of Denzel 13.5, Plt Count 225, MPV 11.3, Immature Gran % (Auto) 0.500, Neut % (Auto) 70.3 H, Lymph % (Auto) 14.9 L, [place] % (Auto) 11.9 H, Eos % (Auto) 2.0, Baso % (Auto) 0.4, Absolute Neuts (auto) 9.0 H, Absolute Lymphs (auto) 1.91, Nucleated RBC % 0, Diff Path Review July, Sodium 134 L, Potassium 4.9, Chloride 92 L, Carbon Dioxide 37.0 H, Anion Gap 5, BUN 146 H*, Creatinine 1.99 H, Estim Creat Clear Calc 47.49, Est GFR (MDRD) Af Amer 35 L, Est GFR (MDRD) Non-Af 29 L, BUN/Creatinine Ratio 73.4 H, Glucose 102, Calcium 9.2, B-Natriuretic Peptide 25.1 02/17/24 14:01: POC Glucose 112 H 02/17/24 14:37: Lactic Acid 0.6 Imaging Radiology Impression Chest X-Ray 02/17/24 14:25 IMPRESSION: Cardiomegaly. Vascular congestion and CHF. Electronically Signed: Daniel Boykin MD at 14:54 EST , Assessment & Plan Assessment/Plan (1) Acute kidney injury: (2) Uremia: (3) Hypotension due to hypovolemia: PLAN: Plan Patient is a 43-year-old female who presented [facility] ED on 02/17/2024 with dizziness. 1. DEJA with mild hypotension and suspected mild uremia ? Admit under inpatient status to PCU. Suspect DEJA is prerenal due to recent overdiuresis. Creatinine 1.99 on admit, baseline 0.6. BUN 146 and previous values in mid January were in the 20s. Patient appears somewhat altered and per [facility] guardian this is different than her normal. Given these findings, patient was given 1 L of normal saline in the ED. However she continued to have low blood pressures in the 70s to 80s systolic and was on room air so she was given another liter of fluids. Follow-up a.m. BMP and monitor urine output. Holding home diuretics and will need to determine diuretic regimen on discharge. 2. Chronic HFpEF with pulmonary hypertension ? Recently hospitalized for acute HFpEF exacerbation in January. Also hospitalized in December for NSTEMI and HFpEF exacerbation. Echo on 12/26 showed EF 55%, mildly dilated RV, mild global RV systolic dysfunction, PASP 67 mmHg. Holding home Coreg, lisinopril, Lasix, metolazone for now. Chronic medical conditions: ? Class III obesity: BMI 56 on admit. Complicates hospital course, care and prognosis. ? COPD: On room air, not in acute exacerbation. Continue home inhalers. ? Hypothyroidism: Continue home Synthroid. ? Prader-Willi syndrome: Complicates care and prognosis. ? DACIA: Continue home CPAP at night. DVT prophylaxis: Heparin subcu CODE STATUS: Full code, verified Expected disposition: Back to [facility], TBD Total clinical time spent by myself addressing the patient's medical issues, reviewing all the data, and collaborating with patient's care team: 55 minutes. Charges/Coding Visit Charges Inpatient E&M: 96289 Init Hosp L2
[2024-02-17] MEDS: 0.9% Normal Saline (1000mL) 1,000 ML 1000 ML IV (16:17)
[2024-02-17] MEDS: Albumin Human 25% (100 mL) 25 GM/100 ML BAG IV (16:17)
--- NOTE | 2024-02-17 17:24 | NURSING ---
Isa Xavier aware of bp.
[2024-02-17] MEDS: 0.9% Normal Saline (1000mL) 1,000 ML 500 ML IV (19:43)
[2024-02-17] MEDS: Budesonide Respules 0.5 MG/2 ML AMPUL.NEB. INHALATION (20:25)
[2024-02-17] MEDS: Albuterol 2.5 MG/3 ML VIAL.NEB. INHALATION (20:25)
[2024-02-17] MEDS: Heparin Injection (Vial) 5,000 UNIT/ML VIAL 5000 UNIT SC (22:18)
[2024-02-18] VITALS (11 sets, daily range): BP systolic 73–115; BP diastolic 44–72; PULSE 52–62; RESP 18–20; TEMP 36.3–36.7; O2SAT 93–98; BMI 56.5
--- NOTE | 2024-02-18 03:19 | PCM.HOSP.N ---
Hospitalist Note Patient with decreased BP recurrence, had been decreased also similarly earlier in the day the day prior, responded to IVFs. Will given an additional 500 cc IVFs x 1 now, add midodrine, continue to monitor.
[2024-02-18] MEDS: Midodrine HCl 5 MG Tablet 10 MG PO ×3 (03:49→16:18)
[2024-02-18] MEDS: 0.9% Normal Saline (500mL Bag) 500 ML 999 ML IV (04:04)
[2024-02-18] MEDS: Levothyroxine 100 MCG Tablet PO (06:28)
[2024-02-18] MEDS: Heparin Injection (Vial) 5,000 UNIT/ML VIAL 5000 UNIT SC ×3 (06:28→20:54)
[2024-02-18] MEDS: Dicyclomine 10 MG Capsule 20 MG PO ×3 (06:28→16:18)
[2024-02-18 06:41] LABS: Hematocrit 31.6 % (37-47); Hemoglobin 9.7 g/dL (12.0-15.0); Mean Corp Hgb Conc 30.7 g/dL (32-36); Mean Corpuscular Hgb 31.4 pg (27.0-32.0); Mean Corpuscular Volume 102.3 fL (81-99); Mean Platelet Vol. 10.6 fl (6.2-12.0); Platelet Count 181 K/mm3 (150-450); RBC Distribution Width CV 13.6 % (11.6-14.6); RBC Distribution Width SD 51.6 fl (35.1-43.9); Red Blood Count 3.09 M/mm3 (4.2-5.4); White Blood Count 11.4 K/mm3 (4.4-11.0)
[2024-02-18] MEDS: 0.9% Saline Lock 10 ML Syringe IV (06:51)
[2024-02-18] MEDS: Albuterol 2.5 MG/3 ML VIAL.NEB. INHALATION ×3 (07:48→18:55)
[2024-02-18] MEDS: Budesonide Respules 0.5 MG/2 ML AMPUL.NEB. INHALATION ×2 (07:48→18:55)
--- NOTE | 2024-02-18 08:00 | PN.HOSP_ITS ---
Reason for Visit Reason for Visit: Diagnoses Hypovolemia (02/17/24) Acute kidney failure, unspecified (02/17/24) Unspecified kidney failure (02/17/24) Subjective Subjective Feeling well. Says she was taking torsemide BID. Objective Data Objective Data Vital Signs: Vital Signs Temp Pulse Resp BP Pulse Ox O2 Del Method FiO2 36.3 C L 58 L 18 93/64 96 CPAP 21 02/18/24 05:45 02/18/24 05:45 02/18/24 05:45 02/18/24 05:45 02/18/24 05:45 02/18/24 05:45 02/18/24 00:25 Oxygen Delivery Method CPAP Weight: 131.4 kg Body Mass Index (BMI) 56.5 Intake & Output: Intake and Output for Last 24 Hours 02/16/24 02/17/24 02/18/24 23:59 23:59 23:59 Intake Total 2100 / 2340 990 / 990 Output Total 1550 / 1550 Balance 2100 / 1440 -560 / -560 Lab / Micro Data 02/18/24 06:23 02/18/24 06:23 Labs: Laboratory Results - last 24 hr 02/17/24 14:00: WBC 12.8 H, RBC 3.53 L, Hgb 11.2 L, Hct 35.3 L, MCV 100.0 H, MCH 31.7, MCHC 31.7 L, RDW Std Deviation 49.9 H, RDW Coeff of Denzel 13.5, Plt Count 225, MPV 11.3, Immature Gran % (Auto) 0.500, Neut % (Auto) 70.3 H, Lymph % (Auto) 14.9 L, [place] % (Auto) 11.9 H, Eos % (Auto) 2.0, Baso % (Auto) 0.4, A bsolute Neuts (auto) 9.0 H, Absolute Lymphs (auto) 1.91, Nucleated RBC % 0, Diff Path Review July, Sodium 134 L, Potassium 4.9, Chloride 92 L, Carbon Dioxide 37.0 H, Anion Gap 5, BUN 146 H*, Creatinine 1.99 H, Estim Creat Clear Calc 47.49, Est GFR (MDRD) Af Amer 35 L, Est GFR (MDRD) Non-Af 29 L, BUN/Creatinine Ratio 73.4 H, Glucose 102, Calcium 9.2, B-Natriuretic Peptide 25.1 02/17/24 14:01: POC Glucose 112 H 02/17/24 14:37: Lactic Acid 0.6 02/18/24 06:23: WBC 11.4 H, RBC 3.09 L, Hgb 9.7 L, Hct 31.6 L, MCV 102.3 H, MCH 31.4, MCHC 30.7 L, RDW Std Deviation 51.6 H, RDW Coeff of Denzel 13.6, Plt Count 181, MPV 10.6 Radiography Diagnostic Testing: Radiology Impression Chest X-Ray 02/17/24 14:25 IMPRESSION: Cardiomegaly. Vascular congestion and CHF. Electronically Signed: Daniel Boykin MD at 14:54 EST , Physical Exam Const alert and no apparent distress HEENT head/scalp atraumatic and moist oral mucous membranes Resp normal respiratory effort, no retractions, no use of accessory muscles and clear to auscultation bilaterally Cardio regular rate, regular rhythm, S1 normal heart sound and S2 normal heart sound GI normal to inspection, nondistended, normoactive bowel sounds, soft to palpation, non-tender and non-distended Extremity Extremity Narrative: marked edema in LE, but improved from when seen previously in January. Assessment & Plan Assessment/Plan (1) Acute kidney injury: (2) Uremia: (3) Hypotension due to hypovolemia: PLAN: Plan DEJA * likley due to overdiuresis. Pt discharged 01/25 with furosemide 40 BID. There was report that her musical instrument maker did not want her on furosemide so patient was taking torsemide (unclear when that change occurred). * I doubt uremia given my previous interactions with the patient. Typically, she is very withdrawn, except last admission, when she was very talkative Chronic medical conditions: * Class III obesity: BMI 56 on admit. Complicates hospital course, care and prognosis. * COPD: On room air, not in acute exacerbation. Continue home inhalers. * Hypothyroidism: Continue home Synthroid. * Prader-Willi syndrome: Complicates care and prognosis. 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 * Chronic HFpEF with pulmonary hypertension: had been taking torsemide BID. Currently held. Would anticipate resumption upon discharge. DVT prophylaxis: Heparin subcu CODE STATUS: Full code, verified Expected disposition: Back to care home, TBD Charges/Coding Visit Charges Inpatient E&M: 69195 Subs Hosp L2
[2024-02-18] MEDS: Aspirin 81 MG TAB.CHEW PO (08:38)
--- NOTE | 2024-02-18 09:16 | CASEMGMT ---
KE called Shaunna Moise ([phone]) regarding patient. Shaunna said she is the contact for patient in regards to the senior care. KE let Shaunna know SW will keep in touch with her. Ruby LOCK
[2024-02-18 09:51] LABS: Anion Gap 5 (5-15); BUN 133 mg/dL (7-18); BUN/Creat Ratio 84.7 RATIO (10-20); Calcium,Total 8.3 mg/dL (8.5-10.1); Chloride 99 mmol/L (98-107); Creatinine, Serum 1.57 mg/dL (0.55-1.02); EST Glomerular Filtration Rate 39 mL/min (>60); Est Glom Filt Rate - Afr Amer 47 mL/min (>60); Estimated Creatinine Clearance 59.45 ml/min; Glucose 106 mg/dL (74-106); Potassium 5.4 mmol/L (3.5-5.1); Sodium Level 138 mmol/L (136-145)
[2024-02-18] MEDS: Nystatin Powder 15gm Bottle 1 APPLIC TOPICAL ×2 (11:43→20:54)
[2024-02-18] MEDS: Calcium Carb/Vitamin D 1 TABLET Tablet PO ×2 (11:43→16:18)
[2024-02-18 13:57] LABS: Pathologist Review Reviewed
[2024-02-18] MEDS: NORETHINDRONE 0.35 MG TABLET PO (14:00)
[2024-02-19 01:20] VITALS: PULSE 56; RESP 16; O2SAT 91
[2024-02-19 02:43] VITALS: BMI 56.8
[2024-02-19 03:15] VITALS: BP 117/55; PULSE 55; RESP 16; TEMP 35.9; O2SAT 95
[2024-02-19] MEDS: Dicyclomine 10 MG Capsule 20 MG PO ×2 (05:51→11:17)
[2024-02-19] MEDS: Heparin Injection (Vial) 5,000 UNIT/ML VIAL 5000 UNIT SC (05:51)
[2024-02-19] MEDS: Levothyroxine 100 MCG Tablet PO (05:51)
[2024-02-19 07:19] VITALS: PULSE 63; RESP 20; O2SAT 94
[2024-02-19] MEDS: Budesonide Respules 0.5 MG/2 ML AMPUL.NEB. INHALATION (07:19)
[2024-02-19] MEDS: Albuterol 2.5 MG/3 ML VIAL.NEB. INHALATION (07:20)
[2024-02-19 08:47] VITALS: BP 95/54; PULSE 56; RESP 16; TEMP 36.6; O2SAT 99
[2024-02-19] MEDS: Aspirin 81 MG TAB.CHEW PO (09:05)
[2024-02-19] MEDS: Midodrine HCl 5 MG Tablet 10 MG PO ×2 (09:05→11:18)
[2024-02-19] MEDS: Nystatin Powder 15gm Bottle 1 APPLIC TOPICAL (09:05)
[2024-02-19] MEDS: NORETHINDRONE 0.35 MG TABLET PO (09:06)
[2024-02-19 11:16] LABS: Anion Gap 5 (5-15); BUN 119 mg/dL (7-18); BUN/Creat Ratio 88.1 RATIO (10-20); Calcium,Total 9.5 mg/dL (8.5-10.1); Chloride 98 mmol/L (98-107); Creatinine, Serum 1.35 mg/dL (0.55-1.02); EST Glomerular Filtration Rate 46 mL/min (>60); Est Glom Filt Rate - Afr Amer 55 mL/min (>60); Estimated Creatinine Clearance 69.14 ml/min; Glucose 127 mg/dL (74-106); Potassium 4.1 mmol/L (3.5-5.1); Sodium Level 138 mmol/L (136-145)
[2024-02-19] MEDS: Calcium Carb/Vitamin D 1 TABLET Tablet PO (11:17)
--- NOTE | 2024-02-19 12:20 | CASEMGMT ---
Patient is ready for discharge back to her custodial. KE called Shaunna Moise and notified her as well as left a message for Jesica Morfin patient's service director with [employer]. KE will call Shaunna Moise once orders are in the computer. Ruby LOCK
--- NOTE | 2024-02-19 13:09 | DS.PCM_ITS ---
Providers Date of Admission: 02/17/24 Primary Care Physician: Dr. Marilee Pérez MD Reason For Visit: DEJA W/ DEHYDRATION Diagnosis Discharge Diagnosis (1) Acute kidney injury: Status: Acute Code(s): N17.9 - Acute kidney failure, unspecified (2) Uremia: Status: Acute Code(s): N19 - Unspecified kidney failure (3) Hypotension due to hypovolemia: Status: Acute Code(s): E86.1 - Hypovolemia Plan DEJA * likley due to overdiuresis. Pt discharged 01/25 with furosemide 40 BID. There was report that her program medical director did not want her on furosemide so patient was taking torsemide (unclear when that change occurred). * I doubt uremia given my previous interactions with the patient. Typically, she is very withdrawn, except last admission, when she was very talkative Chronic medical conditions: * Class III obesity: BMI 56 on admit. Complicates hospital course, care and prognosis. * COPD: On room air, not in acute exacerbation. Continue home inhalers. * Hypothyroidism: Continue home Synthroid. * Prader-Willi syndrome: Complicates care and prognosis. 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 * Chronic HFpEF with pulmonary hypertension: had been taking torsemide BID. Currently held. Would anticipate resumption upon discharge. DVT prophylaxis: Heparin subcu CODE STATUS: Full code, verified Expected disposition: Back to half-way, TBD Medications at Discharge Home Medications ammonium lactate 12 % topical cream 1 applicatio topical DAILY skin 10/26/13 calcium 600 mg (as carbonate)-vitamin D3 10 mcg (400 unit) tablet 1 ea PO BID supplement 10/26/13 epinephrine 0.3 mg/0.3 mL injection, auto-injector 0.3 mg IM X1 PRN Anaphylaxis 06/01/16 nystatin 100,000 unit/gram topical powder 1 applic topical BID rash 06/01/16 clotrimazole 1 % topical cream 1 applic topical BID skin 04/08/17 fluticasone propionate 50 mcg/actuation nasal spray,suspension 50 mcg intranasal ONCE 04/08/17 albuterol sulfate 90 mcg/actuation aerosol inhaler 2 puff inhalation Q6H PRN shortness of breath or wheezing 05/22/21 norethindrone (contraceptive) 0.35 mg tablet (Arianna) 0.35 mg PO QDAY #84 tabs 06/02/23 levothyroxine 100 mcg tablet 100 mcg PO DAILY thyroid 12/26/23 mometasone-formoterol HFA 100 mcg-5 mcg/actuation aerosol inhaler (Dulera) 2 inh inhalation BID breathing 12/26/23 multivitamin-ferrous fumarate-folic acid 18 mg-400 mcg tablet (A Thru Z Advanced Formula) 1 tab PO DAILY 12/26/23 aspirin 81 mg chewable tablet 81 mg PO BREAKFAST heart health #0 tabs 01/02/24 carvedilol 3.125 mg tablet 3.125 mg PO BID heart health #60 tabs 01/02/24 torsemide 20 mg tablet 20 mg PO DAILY #30 tabs 01/26/24 magnesium oxide 400 mg (241.3 mg magnesium) tablet 400 mg PO DAILY 02/17/24 omega-3 fatty acids 1,000 mg capsule 1,000 mg PO DAILY 02/17/24 midodrine 5 mg tablet 10 mg (2 x 5 mg) PO TIDCM #90 tabs 02/19/24 Hospital Course Operations None Procedures None Summary of Care Provided Minutes Spent on Discharge: 32 Hospital Course: Patient presents with dizziness and DEJA. Patient recently discharged with DEJA and had been on furosemide twice daily but was changed over to torsemide twice daily. Patient was brought in and evaluated. There was concern about confusion but this is actually more in line with the patient's previous behavior. When I evaluated that she was more conversant and seemed to be at her normal state but has previously been in states where she would not verbalize anything until she got to know me over time. The patient did receive IV fluids and her kidney function has steadily improved. Patient will be discharged back with to take torsemide send twice daily once daily. Recommend also that she have follow-up lab work as outpatient. Weight / BMI Weight Weight: 131.4 kg Body Mass Index (BMI) 56.8 ABG / Lab / Microbiology Data 02/18/24 06:23 02/19/24 09:41 Laboratory: Laboratory Results - last 24 hr 02/17/24 14:00: Diff Path Review Reviewed 02/19/24 09:41: Sodium 138, Potassium 4.1, Chloride 98, Carbon Dioxide 35.0 H, Anion Gap 5, BUN 119 H*, Creatinine 1.35 H, Estim Creat Clear Calc 69.14, Est GFR (MDRD) Af Amer 55 L, Est GFR (MDRD) Non-Af 46 L, BUN/Creatinine Ratio 88.1 H , Glucose 127 H, Calcium 9.5 D/C Instructions Discharge Diet: - (Fluid restrict 1.5 liters. ) DC O2, CPAP, BIPAP Needs PSN CPAP & BiPAP: BiPAP & CPAP Settings per PSN Mode CPAP 02/19/24 01:20 Bipap Delivery Device Face Mask 02/19/24 01:20 BiPAP Expiratory Pressure 7 02/19/24 01:20 Fraction of Inspired Oxygen ( 21 02/19/24 01:20 FIO2) Additional Home O2 Discharge instructions: No DC home with Oxygen: No Meaningful Use Info Meaningful Use Meaningful Use Diagnoses (Choose all that apply): None applicable Ischemic Stroke Statin Dosing Therapy Reference: STATIN DOSE THERAPY REFERENCE: * Patients > 75 years receive moderate or high dose statin therapy. * Patients 75 years or YOUNGER should receive HIGH intensity statin dose unless contraindicated. You will be required to document reason for non-treatment if statin daily dose does not meet guidelines. HIGH DOSE STATIN THERAPY DAILY Atorvastatin > than or = to 40 mg Rosuvastatin > than or = to 20 mg Amlodipine + Atorvastatin > than or = to 2.5/40 mg Ezetimibe + Simvastatin 10/80 mg Simvastatin 80mg Discharge Plan Admission Admit Date/Time: 02/17/24 15:32 Primary Reason for Your Visit: DEJA Attending Provider: Manuel Garay Primary Care Provider: Marilee Pérez Consulting Providers: Marbin Lizama Discharge Orders/Prescriptions Prescriptions: New midodrine 5 mg Tablet 10 mg PO TIDCM Qty: 90 0RF Continued fluticasone propionate 50 mcg/actuation spray,suspension 50 mcg INTRANASAL ONCE clotrimazole 1 % cream 1 applic TOPICAL BID albuterol sulfate 90 mcg/actuation HFA aerosol inhaler 2 puff inhalation Q6H PRN (Reason: shortness of breath or wheezing) norethindrone (contraceptive) [Arianna] 0.35 mg tablet 0.35 mg PO QDAY Qty: 84 4RF ammonium lactate 140 GM cream 1 applicatio TOPICAL DAILY Patient Comments: skin health calcium carbonate-vitamin D3 1 EACH tablet 1 ea PO BID Patient Comments: supplement nystatin 1 APPLIC bottle 1 applic TOPICAL BID epinephrine 0.3 MG syringe 0.3 mg IM X1 PRN (Reason: Anaphylaxis) magnesium oxide 400 mg (241.3 mg magnesium) tablet 400 mg PO DAILY omega-3 fatty acids 1,000 mg capsule 1,000 mg PO DAILY A Thru Z Advanced Formula 18-400 mg-mcg tablet 1 tab PO DAILY Dulera 100-5 mcg/actuation HFA aerosol inhaler 2 inh inhalation BID levothyroxine 100 mcg tablet 100 mcg PO DAILY carvedilol 3.125 mg Tablet 3.125 mg PO BID Qty: 60 0RF aspirin 81 mg Tablet,Chewable 81 mg PO BREAKFAST Qty: 0 0RF torsemide 20 mg tablet 20 mg PO DAILY Qty: 30 0RF Rx Instructions: TWICE DAILY Discontinued metolazone 2.5 mg tablet 2.5 mg PO DAILY lisinopril 5 mg tablet 5 mg PO DAILY Qty: 30 0RF potassium chloride 10 mEq capsule, extended release 20 meq PO DAILY Qty: 60 0RF Referrals / Follow Up: Marilee Pérez MD [Primary Care Provider] - Within 2 Weeks Disposition Disposition (needs filled in before D/C Order can be placed): Home, Self Care Charges/Coding Visit Charges Inpatient E&M: 18858 Disch Hosp >30min
--- NOTE | 2024-02-19 13:13 | CHAPLAIN ---
Type of Pastoral Visit _x__ Initial Visit ___ Follow-up Visit ___ On-call Visit ___ General Patient Visit ___ Spiritual Assessment ___ Family Conference ___ Bereavement ___ Rapid Response ___ Code Blue ___ Other (describe below) Pastoral Care Referral From _x__ Patient ___ Family ___ Nurse ___ Physician ___ Pest Control Supervisor ___ Supervisor Gate Services ___ Other (describe below) Sacrament/Intervention _x__ Active listening ___ Anointing ___ Yazidi ___ Bereavement ___ Communion ___ Susan exploration ___ ___ Life review _x__ Prayer ___ Reconciliation ___ Sacrament of Sick _x__ Supportive presence ___ Wedding ___ Other (describe below) Pastoral Comments patient has been seen several times recently in previous admissions; pt explains the situation that is current and the help being given; pt states that she is coping well and has no worries about being here; pt does express a prayer desire for a family member; presence and prayer given
--- NOTE | 2024-02-19 14:02 | CASEMGMT ---
Social Work Discharge orders faxed to pt's Board of DD delicatessen store manager Jesica Morfin. GERMÁN Knapp
[2024-02-19 14:26] VITALS: BP 100/47; PULSE 51; RESP 16; TEMP 36.6; O2SAT 97
--- NOTE | 2024-02-19 14:27 | CASEMGMT ---
KE spoke with Shaunna Moise. She asked that d/c orders be faxed to [phone]. 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 Patient is active with [facility] ([facility]) and will need a resumption order. KE faxed orders to the shelter at above fax number. Plan: d/c back to shelter with resumption of [facility] Long-Term, PT, and OT. Ruby Laughlin MANUFACTURING ENGINEERING DIRECTOR ASHVIN
--- NOTE | 2024-02-19 16:11 | CASEMGMT ---
KE called patient's mom Deanne. KE apologized and let Deanne know that SW forgot to call her and notify her that patient was being discharged today. Deanne was thankful for the call. Ruby LOCK
== END 2024-02-19 15:43 | disposition home or self-care (01) | DRG 683 ==
LOC: ED 15:20 → PCU 16:50
PROVIDERS: Admitting Provider Hospitalist; Emergency Provider Emergency Medicine; PCP Internal Medicine
DX: N17.9 Acute kidney failure, unspecified (principal); Q87.11 Prader-Willi syndrome; Z68.43 Body mass index [BMI] 50.0-59.9, adult; I50.32 Chronic diastolic (congestive) heart failure; I27.20 Pulmonary hypertension, unspecified; J44.9 Chronic obstructive pulmonary disease, unspecified; I11.0 Hypertensive heart disease with heart failure; E03.9 Hypothyroidism, unspecified; I95.89 Other hypotension; G47.33 Obstructive sleep apnea (adult) (pediatric); I25.10 Atherosclerotic heart disease of native coronary artery without angina pectoris; E86.1 Hypovolemia; I25.2 Old myocardial infarction; E66.813 Obesity, class 3; Z95.5 Presence of coronary angioplasty implant and graft; Z79.51 Long term (current) use of inhaled steroids; Z79.890 Hormone replacement therapy; Z79.82 Long term (current) use of aspirin; Z79.899 Other long term (current) drug therapy
CPT/HCPCS: 36415; 71045; 80048; 82962; 83605; 83880; 85025; 85027; 93005; 94640; 94660; 94668; 97162; 97166; 99285; J7030; J7040; P9047; A4216

== ENCOUNTER 2024-02-24 09:14 | Inpatient (IN) | payer MEDICARE, MEDICAID, SELFPAY ==
[2024-02-24 09:15] VITALS: PULSE 73; RESP 18; TEMP 36.6; O2SAT 93
[2024-02-24 09:17] VITALS: BMI 57.9
--- NOTE | 2024-02-24 09:28 | EX.ED.UPPERE ---
HPI History of Present Illness HPI Narrative: 43-year-old female extensive past medical history including COPD, Prader-Willi, CAD with stent. Complaining of right anterior shoulder pain since last evening around dinnertime. Denies any fall injury or trauma. Denies any fever, redness or swelling. No prior surgery. No known cause of the pain. Patient is right-hand dominant. She took Naprosyn for the pain today. Chief Complaint: Upper Extremity Injury Informant: patient and other ([facility] staff member.) Occured/Mechanism Mechanism/Context: No injury and No blunt trauma Onset/Context/Timing Onset: Today and Yesterday Context: Gradual Onset Timing: Continuous Quality of Pain: Dull and Aching Current Severity: Mild Maximum Severity: Mild Narrative Narrative: 43-year-old [id number] female with atraumatic right anterior shoulder pain since last evening. Prior similar symptoms: Yes Recent Illness/Hospitalization: Yes PFSH [facility] Medical History Hypothyroidism Non-smoker CPAP (continuous positive airway pressure) dependence Asthma Chest pain DVT (deep venous thrombosis) (HFpEF) heart failure with preserved ejection fraction HTN (hypertension) DACIA treated with BiPAP Morbid obesity with body mass index (BMI) greater than or equal to 50 Menorrhagia with regular cycle Cystocele with incomplete uterovaginal prolapse Prader-Willi syndrome Enlarged RV (right ventricle) COPD (chronic obstructive pulmonary disease) Hypothyroidism Prader-Willi syndrome Morbid obesity with BMI of 40.0-44.9, adult Sleep apnea Home Medications ?Medication ?Instructions ?Recorded ?Last Taken ?Type ammonium lactate 12 % topical cream 1 applicatio topical DAILY skin 10/26/13 12/26/23 History calcium 600 mg (as 1 ea PO BID supplement 10/26/13 12/26/23 History carbonate)-vitamin D3 10 mcg (400 unit) tablet epinephrine 0.3 mg/0.3 mL 0.3 mg IM X1 PRN Anaphylaxis 06/01/16 Unknown History injection, auto-injector nystatin 100,000 unit/gram topical 1 applic topical BID rash 06/01/16 12/26/23 History powder clotrimazole 1 % topical cream 1 applic topical BID skin 04/08/17 12/26/23 History fluticasone propionate 50 50 mcg intranasal ONCE breathing 04/08/17 12/26/23 History mcg/actuation nasal spray,suspension albuterol sulfate 90 mcg/actuation 2 puff inhalation Q6H PRN 05/22/21 Unknown History aerosol inhaler shortness of breath or wheezing norethindrone (contraceptive) 0.35 0.35 mg PO QDAY #84 tabs 06/02/23 12/26/23 Rx mg tablet (Arianna) levothyroxine 100 mcg tablet 100 mcg PO DAILY thyroid 12/26/23 12/26/23 History mometasone-formoterol HFA 100 2 inh inhalation BID breathing 12/26/23 12/26/23 History mcg-5 mcg/actuation aerosol inhaler (Dulera) multivitamin-ferrous 1 tab PO DAILY vitamin 12/26/23 12/26/23 History fumarate-folic acid 18 mg-400 mcg tablet (A Thru Z Advanced Formula) aspirin 81 mg chewable tablet 81 mg PO BREAKFAST heart health #0 01/02/24 Unknown Rx tabs carvedilol 3.125 mg tablet 3.125 mg PO BID heart health #60 01/02/24 Unknown Rx tabs torsemide 20 mg tablet 20 mg PO DAILY diuretic #30 tabs 01/26/24 Unknown Rx magnesium oxide 400 mg (241.3 mg 400 mg PO DAILY supplement 02/17/24 Unknown History magnesium) tablet omega-3 fatty acids 1,000 mg 1,000 mg PO DAILY supplement 02/17/24 Unknown History capsule midodrine 5 mg tablet 10 mg (2 x 5 mg) PO TIDCM #90 tabs 02/19/24 Unknown Rx Allergy/AdvReac Type Severity Reaction Status Date / Time insect venom (insect bites) Allergy Intermediate Itching Verified 02/24/24 09:17 phenytoin sodium (From Allergy Unknown Verified 02/24/24 09:17 Dilantin) phenytoin sodium extended Allergy Unknown Verified 02/24/24 09:17 (From Dilantin) venom-honey bee (bee venom Allergy Unknown Verified 02/24/24 09:17 (honey bee)) Family History Grandmother Diabetes Heart disease Hypertension Mother Diabetes Grandfather Hypertension Father No problems noted. Surgical History History of coronary artery stent placement History of tonsillectomy and adenoidectomy Social History household members: none housing: other details: [facility]. Smoking Status: Never smoker alcohol intake: never substance use type: does not use caffeine: Yes frequency: daily seatbelt use: always do you feel safe at home: Yes additional social history: Louis Gimenez ROS ROS ED ROS Narrative Recent hospitalization for CHF but no recent illness to last several days. Constitutional Constitutional ED: Denies chills or fever(s) Eyes Eyes: Denies blurry vision ENT ENT ED: Denies ear pain Cardiovascular Cardiovascular: Denies chest pain Respiratory/Chest Respiratory/Chest: Denies cough Gastrointestinal Gastrointestinal: Denies abdominal pain Genitourinary Genitourinary ED: Denies dysuria Musculoskeletal Musculoskeletal: Denies back pain Integumentary Denies abscess Neurologic Neurologic: Denies headache(s) Psychiatric Psychiatric: Denies anxiety Endocrine Endocrinology: Denies cold intolerance Hematologic/Lymphatic Hematologic/Lymphatic: Denies easy bleeding Allergic/Immunologic Allergic/Immunologic ED: Denies mouth swelling, tongue swelling or urticaria EXAM Physical Exam Narrative Exam Narrative: 43-year-old female vital signs stable afebrile. H EENT exam pupils round reactive light. Atraumatic. Neck nontender. Lungs clear to auscultation bilaterally. Heart regular rhythm rate about 70 no murmur. Chest wall and ribs nontender. No ecchymosis or bruising. She has normal range of motion of both shoulders. Normal media librarian strength bilaterally. Normal radial pulses. Normal flexion extension of both elbows and wrists. No redness swelling, bruising or deformity. No warmth. Abdomen is soft and nontender. She has chronic lymphedema both lower extremities 2+. She is awake and alert. Answering questions and following commands. Member of her detention with her. Const Vital Signs: 02/24/24 09:15 Temperature 97.9 F Temperature Source Oral Pulse Rate 73 Respiratory Rate 18 Pulse Ox 93 Oxygen Delivery Method Room Air Positive well nourished and well developed; Negative for cachectic, contractures or unkempt General Appearance ED: well developed and NAD; Negative for unkempt, cachectic, contractures, cyanotic or diaphoretic Nutritional Appearance: Negative for cachectic HEENT Reports moist mucous membranes normocephalic and atraumatic Eyes PERRL and EOMs intact bilaterally Neck full ROM and supple General: Negative for tenderness Lymph Lymphatic: Negative for other Chest Wall inspection of chest normal and palpation of chest normal Resp No normal respiratory effort and No clear to auscultation bilaterally Auscultation: Negative for rales, rhonchi or wheezes Cardio regular rate, regular rhythm, S1 normal heart sound, S2 normal heart sound and no murmurs GI non-tender, non-distended and no masses Back/Spine no CVA tenderness Extremity normal to inspection and full ROM Extremity Narrative: Right shoulder really has no reproducible pain. There is no redness or warmth. There is no swelling. There is no bruising. There is no discoloration. Where she describes a discomfort is the medial aspect of the anterior of her right shoulder joint near the chest wall. There is no reproducible pain. Skin appears normal. She is able to lift her arm above her head. She has normal flexion extension. Distally she has normal media librarian strength, sensation and radial pulse. Unremarkable exam. Neuro oriented x3, CN's II-XII intact bilaterally, moves all extremities and no focal motor deficits Sensorium / Orientation: alert, oriented to person, oriented to place and oriented to time Motor Exam: strength 5/5 throughout Psych mental status grossly normal Appearance: Negative for unkempt Mood & Affect: Negative for depressed, anxious or tearful Skin General Skin Exam: Negative for petechiae Lesions: no lesions Rashes: no rashes Trauma: no lacerations or abrasions MDM MDM MDM Narrative Medical decision making narrative: 43-year-old female with atraumatic right shoulder pain. This may be musculoskeletal is really not reproducible. Does not seem to be infectious because there is no swelling redness or warmth. There is no reproducible pain. She has normal range of motion. There is no history of any type of trauma so it is unlikely be a fracture or dislocation. X-rays being obtained. She already took Naprosyn at home for pain. I do not think labs would be of any additional benefit at this time. Repeat exam unchanged at 10:24 AM. X-ray was unremarkable. I discussed that with the patient. She will be discharged home. Tylenol for pain. Staff from the detention are concerned and wanted further evaluation and wanted further testing. Repeat exam no specific change. Per the detention staff this is not the patient's baseline. Interval comfortable taking her home. Have already spoken to the hospitalist and she will be down evaluate the patient for admission to the PCU. We have an elevated white count but no specific source for holding off on antibiotics at this time. Patient has a history of hypotension for which she is on medication to raise her blood pressure. Does not specifically new today. History & Record Review Discussion w/independent historian: Patient Additional record(s) reviewed:: Prior inpatient record, Prior outpatient record, Prior ED visit and Prior labs Lab Data Attestation: I reviewed the patient's lab results. Lab results narrative: CBC shows no a white count of 16.2. H&H 11 and 37 which is her baseline or better for anemia. Electrolytes show gap 5. BUN of 39 creatinine 1.56 consistent with her chronic kidney disease. D-dimer was elevated at 3.38. Glucose 127. Chest x-ray showed cardiomegaly and pulmonary edema. UA showed 3+ bacteria but no white or red cells or nitrites. CTA of the chest showed pulmonary edema but no PE. Radiography Chest X-Ray - ED: 1 View, Read by ED Physician, Read by Radiologist, Mediastinum, Bony Structures, Chronic Changes, Cardiomegaly and CHF Diagnostic Testing: Right shoulder x-ray, 4 films, Interpreted by by myself and radiologist shows no acute abnormality. No fracture. No dislocation. Rhythm Strip Rhythm Strip: Sinus Rhythm Rate: 70 EKG Initial EKG: Attestation: I personally reviewed and interpreted this EKG as follows: Interpretation: Sinus Rhythm and No Acute Injury Pattern Comments: Normal sinus rhythm rate of 70 no acute signs of SD or ischemia. Inverted T waves in lead III and aVF and V1, 2 and 3. Discharge Plan Triage Chief Complaint: Upper Extremity Injury ED Provider: Clarence Hirsch Dx/Rx/DC Orders Clinical Impression: Acute pain of right shoulder, Leukocytosis, Hx of hypotension, Prader-Willi syndrome, History of chronic CHF Prescriptions: No Action fluticasone propionate 50 mcg/actuation spray,suspension 50 mcg INTRANASAL ONCE clotrimazole 1 % cream 1 applic TOPICAL BID albuterol sulfate 90 mcg/actuation HFA aerosol inhaler 2 puff inhalation Q6H PRN (Reason: shortness of breath or wheezing) norethindrone (contraceptive) [Arianna] 0.35 mg tablet 0.35 mg PO QDAY Qty: 84 4RF ammonium lactate 140 GM cream 1 applicatio TOPICAL DAILY Patient Comments: skin health calcium carbonate-vitamin D3 1 EACH tablet 1 ea PO BID Patient Comments: supplement nystatin 1 APPLIC bottle 1 applic TOPICAL BID epinephrine 0.3 MG syringe 0.3 mg IM X1 PRN (Reason: Anaphylaxis) magnesium oxide 400 mg (241.3 mg magnesium) tablet 400 mg PO DAILY omega-3 fatty acids 1,000 mg capsule 1,000 mg PO DAILY midodrine 5 mg Tablet 10 mg PO TIDCM Qty: 90 0RF A Thru Z Advanced Formula 18-400 mg-mcg tablet 1 tab PO DAILY Dulera 100-5 mcg/actuation HFA aerosol inhaler 2 inh inhalation BID levothyroxine 100 mcg tablet 100 mcg PO DAILY carvedilol 3.125 mg Tablet 3.125 mg PO BID Qty: 60 0RF aspirin 81 mg Tablet,Chewable 81 mg PO BREAKFAST Qty: 0 0RF torsemide 20 mg tablet 20 mg PO DAILY Qty: 30 0RF Rx Instructions: TWICE DAILY Primary Care Provider: Marilee Pérez Referrals: Marilee Pérez MD [Primary Care Provider] - 1 Week if not improving Activity Restrictions/Additional Instructions: Your x-ray look good. Ice to the area. Tylenol and Naprosyn for pain. Follow-up with your doctor if not improving. Return if worse or if you would develop a fever redness or swelling. Print Language: Ethiopian Disposition Disposition: Acute Care [facility]
--- NOTE | 2024-02-24 09:45 | RAD_ITS ---
STUDY: X-RAY - RIGHT SHOULDER REASON FOR EXAM: Female, 43 years old. Atraumatic right shoulder pain TECHNIQUE: 4 view(s) of the shoulder. COMPARISON: None. FINDINGS: Normal glenohumeral articulation. Normal acromioclavicular joint. Normal acromion. Normal humeral head and visualized proximal humerus. The soft tissue structures are unremarkable. Normal visualized pulmonary apex. RAD/Shoulder min 2 Views IMPRESSION: Normal x-ray examination of the shoulder. Electronically Signed: Daniel Boykin MD at 10:07 [facility] ,
--- NOTE | 2024-02-24 10:30 | RAD_ITS ---
STUDY: X-RAY CHEST REASON FOR EXAM: Female, 43 years old. Malaise TECHNIQUE: Single AP portable view of the chest. COMPARISON: Comparison is made with prior study dated February 17, 2024. FINDINGS: Vessel congestion and CHF. There is no demonstrated pleural abnormality. There is moderate cardiac enlargement. Normal mediastinum and jennie. There is prominence of the central pulmonary arteries. Normal visualized aortic arch and descending thoracic aorta. Normal visualized thoracic spine. Normal visualized ribs, clavicles, and shoulders. There is no demonstrated abnormality of the visualized soft tissue structures of the upper abdomen. RAD/Chest 1 View (Portable) IMPRESSION: Cardiomegaly and CHF. Prominence of the central pulmonary arteries. Electronically Signed: Daniel Boykin MD at 10:56 EST ,
--- NOTE | 2024-02-24 10:30 | EKG12_ITS ---
Test Reason : CP ADMIT Blood Pressure : */* mmHG Vent. Rate : 56 BPM Atrial Rate : 56 BPM P-R Int : 136 ms QRS Dur : 88 ms QT Int : 450 ms P-R-T Axes : 17 -24 -28 degrees QTcB Int : 434 ms Sinus bradycardia with sinus arrhythmia ST & T wave abnormality, consider anterolateral ischemia Abnormal ECG When compared with ECG of 24-Feb-2024 10:52, MANUAL COMPARISON REQUIRED DATA IS UNCONFIRMED Confirmed by ALTAF FERNANDES, YUSUF ([id number]), features editor PREETI PEOPLES ([id number]) on 02/26/2024 5:57:43 AM Referred By: MONTSE Confirmed By: YUSUF SOLITARIO MD
[2024-02-24 10:54] LABS: Absolute Lymphocyte Count 2.55 X10^3/uL (0.83-4.51); Absolute Neutrophil Count 11.7 X10^3/uL (2.0-7.7); Basophil# 0.09 X10^3/uL; Basophil% 0.6 % (0-1); Eosinophil# 0.24 X10^3/uL; Eosinophils% 1.5 % (0-5); Hematocrit 37.8 % (37-47); Hemoglobin 11.6 g/dL (12.0-15.0); Lymphocyte # 2.55 X10^3/ul (0.83-4.51); Lymphocyte % 15.7 % (19-41); Mean Corp Hgb Conc 30.7 g/dL (32-36); Mean Corpuscular Hgb 32.1 pg (27.0-32.0); Mean Corpuscular Volume 104.7 fL (81-99); Mean Platelet Vol. 10.7 fl (6.2-12.0); Monocyte# 1.45 X10^3/uL; Monocyte% 8.9 % (0-10); NRBC Flagged by Analyzer 0.4 % (0-5); Neutrophil # 11.73 X10^3/uL (2.7-7.7); Neutrophil % 72.4 % (47-70); Platelet Count 181 K/mm3 (150-450); RBC Distribution Width CV 13.1 % (11.6-14.6); RBC Distribution Width SD 49.3 fl (35.1-43.9); Red Blood Count 3.61 M/mm3 (4.2-5.4); White Blood Count 16.2 K/mm3 (4.4-11.0)
[2024-02-24 11:10] LABS: D-Dimer Quantitative (DVT/PE) 3.38 FEU/ug/m (0.27-0.49)
[2024-02-24 11:14] LABS: Anion Gap 5 (5-15); BUN 39 mg/dL (7-18); Chloride 104 mmol/L (98-107); Creatinine, Serum 1.56 mg/dL (0.55-1.02); EST Glomerular Filtration Rate 39 mL/min (>60); Est Glom Filt Rate - Afr Amer 47 mL/min (>60); Glucose 127 mg/dL (74-106); Potassium 4.7 mmol/L (3.5-5.1); Sodium Level 138 mmol/L (136-145)
--- NOTE | 2024-02-24 11:20 | CT_ITS ---
STUDY: CTA CHEST REASON FOR EXAM: Female, 43 years old. R-CP and elevated d-dimer. COPD. RADIATION DOSAGE (If Supplied By Facility): CTDIvol = ( 20.97 ) mGy, DLP = ( 454.27 ) mGycm TECHNIQUE: The examination was performed with the intravenous administration of IV 100mL Isovue-370. Post-processing of the angiographic images was performed, with multiplanar reformation and 3D reconstruction. Individualized dose optimization techniques were used for this CT. COMPARISON: Comparison is made with prior chest radiograph done earlier in the day as well as prior CT of the chest December 29, 2023. FINDINGS: Normal enhancement of the main pulmonary artery and right and left pulmonary arteries. Normal enhancement of the bilateral peripheral pulmonary arteries. There is no demonstrated pulmonary embolism. Enlargement of the central pulmonary arteries. Normal thoracic aorta and visualized great vessels. There is no demonstrated aortic dissection. Moderate cardiomegaly. Enlarged right atrium. Normal mediastinum. Normal hilar regions. Normal visualized trachea and bronchi. The lungs are well expanded. Mild residual groundglass appearance in both lungs although there has been improvement. This is worse in the upper lobes. This is suggestive of vascular congestion. Normal pleura. Normal chest wall structures. There are degenerative changes of thoracic spine. Hepatomegaly. CT/CTA Chest W/WO Contrast IMPRESSION: No evidence of pulmonary embolism. Residual bilateral ground glass appearance more prominent in the upper lobes suggest vascular congestion mild CHF. Cardiomegaly with enlargement of the right atrium. Enlargement of the central pulmonary arteries. Electronically Signed: Daniel Boykin MD at 12:17 EST ,
--- NOTE | 2024-02-24 12:18 | ED.RN ---
During straight cath, patient was noted to have uterine prolapse. Dr. Hirsch and project executive bedside notified.
[2024-02-24 12:45] LABS: Red Blood Cells-Urine 0 SEEN /hpf (0-5)
[2024-02-24 12:47] LABS: Color, Urine Yellow (Yellow); Glucose, Dipstick Normal (Normal); Ketone-Dipstick 5 mg/dl (Negative); Leukocyte Esterase-Dipstick 25 /ul (Negative); Nitrite-Dipstick Negative (Negative); Occult Blood-Urine Negative /ul (Negative); Protein-Dipstick 100 mg/dl (Negative); Specific Gravity, Urine 1.025 (1.002-1.030); Urine Clarity Sl. Cloudy (Clear); Urine Urobilinogen 4 mg/dl (Normal)
[2024-02-24 12:52] LABS: Urine Bilirubin Dipstick 1 mg/dL (Negative)
[2024-02-24 12:53] LABS: Hyaline Cast 10-25 SEEN /lpf (0-5); White Blood Cells 0-5 SEEN /hpf (0-5)
[2024-02-24 12:54] LABS: Amorphous Sediment 2+; Bacteria 3+ /hpf (None Seen); Mucous, Urine 1+ /hpf (<or=2+); Squamous Epithelial Cells - UA 0-5 SEEN /hpf (5-10)
[2024-02-24 13:14] VITALS: BP 89/66; PULSE 63; O2SAT 96
[2024-02-24 15:44] LABS: Troponin-I HS 411 pg/mL (3.0-54.0)
[2024-02-24 15:55] VITALS: BP 89/66; PULSE 63; RESP 18; TEMP 36.6; O2SAT 96
--- NOTE | 2024-02-24 16:09 | HP.PCM.HOS_ITS ---
HPI - General General Date of Admission: 02/24/24 Date of Service: 02/24/24 Chief Complaint: Shoulder pain, SOB HPI Narrative JOSE ABDUL, is a 43-year-old female history of COPD, Prader-Willi presenting the [facility]dc, hypothyroidism, heart failure preserved ejection fraction, PAH presented [facility] ED 02/24/2024 with right anterior shoulder pain since last evening around dinnertime without any fall or trauma. In the ED she had elevated D-dimer and had CTA that was negative for PE but chest x-ray and CTA suggestive of pulmonary edema. Given her shoulder pain with history of stenting to she had troponin obtained which was 411. Given her pain, troponin, generally being unwell hospitalist contacted for admission. Patient evaluated at bedside with group work program aide present and patient's guardian, her mother, on speaker phone. Patient able to supplement history. Patient began to have right-sided upper chest wall/shoulder pain last night that kind of radiates, denies any trauma, denies any central chest pain, she did not endorse any exacerbating or relieving factors initially however then said yesterday when she was walking with her walker the pain significantly increased and group work program aide reports she was crying it bothered her enough, they tried naproxen which did not help which is what she usually takes for pain prompting them to come to the hospital. Patient denies shortness of breath however group work program aide reports that she was more short of breath though does not necessarily think she has more peripheral edema than usual. Patient denies any cough, feels little bit weak all over and fatigued. Patient follows with a renal technician at [facility] but denies any history of coronary stents, she follows with him for her heart failure with preserved ejection fraction. [facility] Medical History (Updated 02/24/24 @ 16:37 by Stefany Kumar) (HFpEF) heart failure with preserved ejection fraction Asthma Chest pain COPD (chronic obstructive pulmonary disease) CPAP (continuous positive airway pressure) dependence Cystocele with incomplete uterovaginal prolapse DVT (deep venous thrombosis) Enlarged RV (right ventricle) HTN (hypertension) Hypothyroidism Hypothyroidism Irregular heart beat Kidney disease Menorrhagia with regular cycle Morbid obesity with BMI of 40.0-44.9, adult Morbid obesity with body mass index (BMI) greater than or equal to 50 Non-smoker 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 Sleep apnea Home Medications ?Medication ?Instructions ?Recorded ?Last Taken ?Type ammonium lactate 12 % topical cream 1 applicatio topical DAILY skin 10/26/13 12/26/23 History nystatin 100,000 unit/gram topical 1 applic topical BID rash 06/01/16 12/26/23 History powder clotrimazole 1 % topical cream 1 applic topical BID skin 04/08/17 12/26/23 History fluticasone propionate 50 50 mcg intranasal ONCE breathing 04/08/17 12/26/23 History mcg/actuation nasal spray,suspension norethindrone (contraceptive) 0.35 0.35 mg PO QDAY #84 tabs 06/02/23 12/26/23 Rx mg tablet (Arianna) levothyroxine 100 mcg tablet 100 mcg PO DAILY thyroid 12/26/23 12/26/23 History mometasone-formoterol HFA 100 2 inh inhalation BID breathing 12/26/23 12/26/23 History mcg-5 mcg/actuation aerosol inhaler (Dulera) multivitamin-ferrous 1 tab PO DAILY vitamin 12/26/23 12/26/23 History fumarate-folic acid 18 mg-400 mcg tablet (A Thru Z Advanced Formula) carvedilol 3.125 mg tablet 3.125 mg PO BID heart health #60 01/02/24 Unknown Rx tabs magnesium oxide 400 mg (241.3 mg 400 mg PO DAILY supplement 02/17/24 Unknown History magnesium) tablet omega-3 fatty acids 1,000 mg 1,000 mg PO DAILY supplement 02/17/24 Unknown History capsule midodrine 5 mg tablet 10 mg (2 x 5 mg) PO TIDCM #90 tabs 02/19/24 Unknown Rx Allergy/AdvReac Type Severity Reaction Status Date / Time insect venom (insect bites) Allergy Intermediate Itching Verified 02/24/24 09:17 phenytoin sodium (From Allergy Unknown Verified 02/24/24 09:17 Dilantin) phenytoin sodium extended Allergy Unknown Verified 02/24/24 09:17 (From Dilantin) venom-honey bee (bee venom Allergy Unknown Verified 02/24/24 09:17 (honey bee)) Family History Grandmother Diabetes Heart disease Hypertension Mother Diabetes Grandfather Hypertension Father No problems noted. Surgical History History of coronary artery stent placement History of tonsillectomy and adenoidectomy Social History household members: none housing: other details: [facility]. Smoking Status: Never smoker alcohol intake: never substance use type: does not use caffeine: Yes frequency: daily seatbelt use: always do you feel safe at home: Yes additional social history: Louis Gimenez ROS ROS Narrative General: Denies fever/chills, feels generally unwell HENT: Denies headache, denies stuffy nose, denies sore throat EYES: Denies changes in vision Resp: Denies cough, worker noted she has seemed more short of breath and does appear somewhat labored Cardiac: Upper right chest wall to shoulder pain GI: Denies abdominal pain, denies changes in bowel, denies nausea/vomiting : Possibly some burning on urination but patient unable to describe this further or give timeline Extremity: Chronic swelling in lower extremities, not worse MSK: Some generalized weakness Neuro: Denies any numbness/tingling Heme: Denies any bleeding or bruising Skin: Denies rashes Psychiatric: No complaints voiced Vital Signs Vital Signs Vital Signs: 02/24/24 09:15 02/24/24 13:14 02/24/24 15:55 Temperature 97.9 F 97.9 F Temperature Source Oral Pulse Rate 73 63 63 Respiratory Rate 18 18 Blood Pressure 89/66 L 89/66 L Blood Pressure Mean 73 73 Pulse Ox 93 96 96 Oxygen Delivery Method Room Air Weight Weight: 134.5 kg Body Mass Index (BMI) 57.9 Physical Exam Narrative General: Tired but awake and answers questions HEENT: Atraumatic Eyes: Anicteric, normal conjunctiva, extraocular movements grossly intact Neck: Supple Respiratory: Diminished at the bases, increased respiratory effort Cardiovascular: Regular rate and rhythm GI: Soft, nontender, nondistended Extremities: 1-2+ lower extremity pitting edema bilaterally Musculoskeletal: Moving all extremities Neuro: No overt focal neurological deficits Skin: No rashes appreciated Psych: Cooperative Results Lab / Micro Data 02/24/24 10:50 02/24/24 10:50 Labs: Laboratory Results - last 24 hr 02/24/24 10:50: WBC 16.2 H, RBC 3.61 L, Hgb 11.6 L, Hct 37.8, MCV 104.7 H, MCH 32.1 H, MCHC 30.7 L, RDW Std Deviation 49.3 H, RDW Coeff of Denzel 13.1, Plt Count 181, MPV 10.7, Immature Gran % (Auto) 0.900, Neut % (Auto) 72.4 H, Lymph % (Auto) 15.7 L, [place] % (Auto) 8.9, Eos % (Auto) 1.5, Baso % (Auto) 0.6, Absolute Neuts (auto) 11.7 H, Absolute Lymphs (auto) 2.55, Nucleated RBC % 0.4, D-Dimer Quant (PE/DVT) 3.38 H*, Sodium 138, Potassium 4.7, Chloride 104, Carbon Dioxide 29.0, Anion Gap 5, BUN 39 H, Creatinine 1.56 H, Est GFR (MDRD) Af Amer 47 L, Est GFR (MDRD) Non-Af 39 L, BUN/Creatinine Ratio 25.0 H, Glucose 127 H, Calcium 9.0 02/24/24 12:35: Urine Color Yellow, Urine Clarity Sl. Cloudy, Urine pH 5.0, Ur Specific Coleman 1.025, Urine Protein 100 H, Urine Glucose (UA) Normal, Urine Ketones 5 H, Urine Occult Blood Negative, Urine Nitrite Negative, Urine Bilirubin 1 H, Urine Urobilinogen 4 H, Ur Leukocyte Esterase 25 H, Urine RBC 0 SEEN, Urine WBC 0-5 SEEN, Ur Squamous Epith Cells 0-5 SEEN, Amorphous Sediment 2+, Urine Bacteria 3+, Hyaline Casts 10-25 SEEN, Urine Mucus 1+ 02/24/24 14:55: Lactic Acid 1.0, Troponin I High Sens 411 H* Rhythm Strip Rhythm Strip: Sinus Rhythm Rate: 70 Imaging Radiology Impression Shoulder X-Ray 02/24/24 09:45 IMPRESSION: Normal x-ray examination of the shoulder. Electronically Signed: Daniel Boykin MD at 10:07 EST , Chest X-Ray 02/24/24 10:30 IMPRESSION: Cardiomegaly and CHF. Prominence of the central pulmonary arteries. Electronically Signed: Daniel Boykin MD at 10:56 EST , Chest CTA 02/24/24 11:20 IMPRESSION: No evidence of pulmonary embolism. Residual bilateral ground glass appearance more prominent in the upper lobes suggest vascular congestion mild CHF. Cardiomegaly with enlargement of the right atrium. Enlargement of the central pulmonary arteries. Electronically Signed: Daniel Boykin MD at 12:17 EST , Assessment & Plan Assessment/Plan (1) Elevated troponin: PLAN: Plan # Elevated troponin, type I versus type II NSTEMI -Initial troponin 411 which down trended to 227 -EKG with new T wave inversions in V3-V4 and flattening in V5 -Does appear slightly volume overloaded but BNP machine not working so unable to obtain at this time so it is possible that is type II but given the right sided chest pain rating to the shoulder with significance of the troponin elevation and the additional EKG changes do feel it is reasonable to start heparin drip and consult cardiology -Limited echo to assess for wall motion abnormalities -Continue aspirin and statin -Continue beta-melchor if her blood pressure allows -Initially ordered heparin, discussed with cardiology who recommended stopping the heparin and making patient n.p.o. at midnight as she may need heart cath tomorrow # Suspect mild acute exacerbation of chronic heart failure with preserved ejection fraction with pulmonary hypertension -Admit to telemetry -BNP-presently unable to run this test in the lab so this is pending -CXR and CTA with cardiomegaly some changes consistent with CHF -Patient does not appear grossly overloaded so do not necessarily think this would account entirely for the above -Will give dose of Lasix IV and monitor before scheduling any more Lasix -Last echo 12/27/2023 with EF of 55% with PASP of 67 and moderate tricuspid valve insufficiency, there was dilated RV with impaired function at that time -Repeat echo ordered to assess for wall motion abnormalities given the elevated troponin and unclear if type I or type II -Daily weights, I's and O's -Fluid restriction, heart healthy diet #Hypotension -Patient on midodrine chronically suspect that a component of this is chronic -Continue home midodrine -Continue home carvedilol if able but will have holding parameters #Elevated Creatinine -Patient's creatinine 1.56 -Creatinine has been elevated since earlier this month though previously had been normal, unclear significance -May need to consider nephrology inpatient versus outpatient -Will check renal and bladder ultrasound -Patient with some nonspecific urinary symptoms of unclear duration -UA not necessarily overtly infectious but will check urine culture especially given elevated white count, will hold off on empiric antibiotics unless culture revealing or more overt infectious symptoms present #COPD -Continue home inhalers # History of pulmonary hypertension -Follows with Dr. Ceja on outpatient basis #DACIA -Continue home NIPPV if applicable, patient previously with difficulty with compliance with CPAP to follow-up with Dr. Elliott in outpatient basis # Prader-Willi syndrome -Currently resides at [facility] #Hypothyroidism -Continue Synthroid #Morbid obesity -BMI documented as 57.9 kg/m? at time of admission -Complicates treatment, prognosis, outcomes -Recommend weight loss and lifestyle changes #DVT ppx: Lovenox subcu Cindy Collier MD Time spent in the patient's overall evaluation,decision-making process, review of diagnostic data, adjustment of management, discussion with other providers, nursing nursing and ancillary staff involved in patient's care documentation, 80 Minutes Charges/Coding Visit Charges Inpatient E&M: 16927 Init Hosp L3
[2024-02-24 16:28] VITALS: BMI 56.3
[2024-02-24 16:40] VITALS: BP 111/87; PULSE 63; RESP 22; TEMP 36.4; O2SAT 100
--- NOTE | 2024-02-24 16:40 | US_ITS ---
INDICATION: Elevated creatinine, unclear cause EXAMINATION: Ultrasound US Kidney(s) complete (eg, kidneys and bladder) TECHNIQUE: Dinh scale and color doppler images were obtained of the kidneys. COMPARISON: No relevant prior comparison study available FINDINGS: RIGHT KIDNEY: 9 x 3.8 x 3.2 cm. There is no hydronephrosis. No shadowing calculus, focal lesion or perinephric collection is demonstrated. LEFT KIDNEY: 10.5 x 3.8 x 4.5. There is no hydronephrosis. No shadowing calculus, focal lesion or perinephric collection is demonstrated. URINARY BLADDER: Empty and not well assessed. US/Kidney and Bladder IMPRESSION: Negative renal ultrasound. Electronically Signed: aMrk Dale MD at 6:59 EST ,
[2024-02-24] MEDS: Midodrine HCl 5 MG Tablet 10 MG PO (17:39)
--- NOTE | 2024-02-24 17:43 | EKG12_ITS ---
Test Reason : AM EKG Blood Pressure : */* mmHG Vent. Rate : 51 BPM Atrial Rate : 51 BPM P-R Int : 138 ms QRS Dur : 98 ms QT Int : 536 ms P-R-T Axes : 45 10 -55 degrees QTcB Int : 494 ms Sinus bradycardia with Premature atrial complexes ST & T wave abnormality, consider inferior ischemia ST & T wave abnormality, consider anterolateral ischemia Prolonged QT Abnormal ECG No previous ECGs available Confirmed by ALTAF FERNANDES, YUSUF ([id number]), avid editor PREETI PEOPLES ([id number]) on 02/26/2024 5:57:00 AM Referred By: MONTSE Confirmed By: YUSUF SOLITARIO MD
--- NOTE | 2024-02-24 17:47 | ECHOL_ITS ---
Reason For Study: CHEST PAIN Procedure This was a limited 2D transthoracic echocardiogram. Exam performed portable in patient room. Left Ventricle Normal LV size. Left ventricular systolic function is normal. The left ventricular ejection fraction is 60 %. No regional wall motion abnormalities noted. Right Ventricle Moderately dilated right ventricle. Mild global right ventricular systolic dysfunction. Atria Normal left atrium. Normal right atrium. Mitral Valve Normal mitral valve. Tricuspid Valve Normal tricuspid valve. Moderately severe (3+) tricuspid valve insufficiency. Pulmonary artery systolic pressure is 66 mmHg. Aortic Valve Trisinus/trileaflet aortic valve. Pulmonic Valve Normal pulmonic valve. Great Vessels Normal aortic root. The pulmonary artery is normal size. Inferior vena cava collapse with respiration. Pericardium/Pleural No pericardial effusion. MMode/2D Measurements & Calculations LVIDd: 3.8 cm IVSd: 0.87 cm LVAd ap4: 17.7 cm2 LVIDs: 2.5 cm LVPWd: 0.86 cm LVLd ap4: 6.5 cm FS: 34.3 % EDV(MOD-sp4): 40.8 ml EDV(sp4-el): 40.8 ml LVAs ap4: 10.8 cm2 LVLs ap4: 5.4 cm ESV(MOD-sp4): 19.0 ml ESV(sp4-el): 18.6 ml EF(MOD-sp4): 53.6 % EF(sp4-el): 54.5 % SV(MOD-sp4): 21.9 ml SV(sp4-el): 22.2 ml RA A4 area: 20.2 cm2 SI(MOD-sp4): 10.1 ml/m2 Doppler Measurements & Calculations TR max everardo: 387.0 cm/sec TR max P.9 mmHg ECHO/Echo, Limited Study Interpretation Summary Normal LV size. Left ventricular systolic function is normal. The left ventricular ejection fraction is 60 %. Pulmonary artery systolic pressure is 66 mmHg. Moderately dilated right ventricle. Mild global right ventricular systolic dysfunction. Ordering Physician: Cindy Collier Referring Physician: SHERIF THAKUR Performed By: Jennifer Rincon RDCS
[2024-02-24] MEDS: Aspirin 81 MG TAB.CHEW 324 MG PO (18:23)
[2024-02-24 18:25] LABS: Troponin-I HS 227 pg/mL (3.0-54.0)
[2024-02-24 19:05] LABS: International Normalized Ratio 1.2; Prothrombin Time (Protime)PT. 14.8 SECONDS (11.7-14.9)
[2024-02-24 19:06] LABS: Partial Thromboplast Time 26.8 Seconds (24.1-36.2)
[2024-02-24 19:17] VITALS: PULSE 60; RESP 26; O2SAT 97
[2024-02-24] MEDS: Budesonide Respules 0.5 MG/2 ML AMPUL.NEB. INHALATION (19:17)
[2024-02-24] MEDS: Albuterol 2.5 MG/3 ML VIAL.NEB. INHALATION (19:17)
[2024-02-24] MEDS: Heparin Injection (Vial) 5,000 UNIT/ML VIAL 4000 UNIT IV (20:05)
[2024-02-24] MEDS: HEPARIN/D5w 25,000 UNITS 25,000 UNITS/250 ML IV.SOLN. 10 UNITS CONT INF (20:06)
[2024-02-24] MEDS: Atorvastatin Calcium 80 MG Tablet PO (20:11)
[2024-02-24] MEDS: Carvedilol 3.125 MG TABLET PO (20:13)
[2024-02-24 20:15] VITALS: BP 116/77; PULSE 66; RESP 20; TEMP 36.6; O2SAT 98
--- NOTE | 2024-02-24 20:58 | NURSING ---
Called patient's Deanne states she is ok with giving consent tomorrow for the heart cath after she talks with the physician. Unfortunately she works tomorrow am but can be reached by phone when the Dr is ready.
[2024-02-24 21:37] LABS: Troponin-I HS 179 pg/mL (3.0-54.0)
[2024-02-24] MEDS: 0.9% Saline Lock 10 ML Syringe IV (22:13)
[2024-02-24] MEDS: Furosemide 20 MG/2 ML VIAL IV (22:13)
[2024-02-25] VITALS (28 sets, daily range): BP systolic 95–202; BP diastolic 64–125; PULSE 47–68; RESP 13–27; TEMP 36.4–36.8; O2SAT 87–100; BMI 56.0
[2024-02-25 02:17] LABS: Partial Thromboplast Time 26.2 Seconds (24.1-36.2)
[2024-02-25] MEDS: Levothyroxine 100 MCG Tablet PO (05:55)
--- NOTE | 2024-02-25 05:55 | EKG12_ITS ---
Test Reason : GENERAL Blood Pressure : */* mmHG Vent. Rate : 70 BPM Atrial Rate : 70 BPM P-R Int : 116 ms QRS Dur : 90 ms QT Int : 390 ms P-R-T Axes : 17 1 -29 degrees QTcB Int : 421 ms Normal sinus rhythm with sinus arrhythmia RSR' or QR pattern in V1 suggests right ventricular conduction delay Septal infarct , age undetermined T wave abnormality, consider inferior ischemia Abnormal ECG Confirmed by ALTAF FERNANDES, YUSUF ([id number]), assignment editor PREETI PEOPLES ([id number]) on 02/26/2024 10:46:42 AM Referred By: Confirmed By: YUSUF SOLITARIO MD
[2024-02-25] MEDS: Albuterol 2.5 MG/3 ML VIAL.NEB. INHALATION ×2 (06:44→20:40)
[2024-02-25] MEDS: Budesonide Respules 0.5 MG/2 ML AMPUL.NEB. INHALATION ×2 (06:44→20:40)
[2024-02-25 07:31] LABS: Absolute Lymphocyte Count 2.73 X10^3/uL (0.83-4.51); Absolute Neutrophil Count 9.8 X10^3/uL (2.0-7.7); Basophil# 0.07 X10^3/uL; Basophil% 0.5 % (0-1); Eosinophil# 0.43 X10^3/uL; Hematocrit 36.7 % (37-47); Hemoglobin 11.2 g/dL (12.0-15.0); Lymphocyte # 2.73 X10^3/ul (0.83-4.51); Lymphocyte % 18.9 % (19-41); Mean Corp Hgb Conc 30.5 g/dL (32-36); Mean Corpuscular Hgb 32.2 pg (27.0-32.0); Mean Corpuscular Volume 105.5 fL (81-99); Mean Platelet Vol. 11.4 fl (6.2-12.0); NRBC Flagged by Analyzer 0.5 % (0-5); Neutrophil # 9.78 X10^3/uL (2.7-7.7); Neutrophil % 67.8 % (47-70); Platelet Count 143 K/mm3 (150-450); RBC Distribution Width CV 13.2 % (11.6-14.6); RBC Distribution Width SD 50.6 fl (35.1-43.9); Red Blood Count 3.48 M/mm3 (4.2-5.4); White Blood Count 14.4 K/mm3 (4.4-11.0)
[2024-02-25] MEDS: Midodrine HCl 5 MG Tablet 10 MG PO (07:52)
[2024-02-25] MEDS: Aspirin E.C. 81 MG Tablet PO (07:53)
[2024-02-25 07:54] LABS: Anion Gap 1 (5-15); BUN 38 mg/dL (7-18); BUN/Creat Ratio 38.2 RATIO (10-20); Calcium,Total 8.9 mg/dL (8.5-10.1); Chloride 104 mmol/L (98-107); EST Glomerular Filtration Rate 65 mL/min (>60); Est Glom Filt Rate - Afr Amer 79 mL/min (>60); Estimated Creatinine Clearance 92.78 ml/min; Glucose 100 mg/dL (74-106); Sodium Level 140 mmol/L (136-145)
--- NOTE | 2024-02-25 08:03 | PCM.PN.HOSP ---
Reason for Visit Reason for Visit: Diagnoses Other specified abnormal findings of blood chemistry (02/24/24) Subjective Subjective Complaining of right shoulder pain. Objective Data Objective Data Vital Signs: Vital Signs Temp Pulse Resp BP Pulse Ox O2 Del Method O2 Flow Rate 36.5 C L 57 L 18 112/80 97 Room Air 1 02/25/24 07:42 02/25/24 07:42 02/25/24 07:42 02/25/24 07:42 02/25/24 07:42 02/25/24 07:42 02/25/24 06:45 Oxygen Flow Rate (L/min) 1 Oxygen Delivery Method Room Air Weight: 130.2 kg Body Mass Index (BMI) 56.0 Intake & Output: Intake and Output for Last 24 Hours 02/23/24 02/24/24 02/25/24 23:59 23:59 23:59 Intake Total 257.17 / 657.17 400 / 400 Balance 257.17 / 657.17 400 / 400 Lab / Micro Data 02/25/24 07:05 02/25/24 07:05 Labs: Laboratory Results - last 24 hr 02/24/24 10:50: WBC 16.2 H, RBC 3.61 L, Hgb 11.6 L, Hct 37.8, MCV 104.7 H, MCH 32.1 H, MCHC 30.7 L, RDW Std Deviation 49.3 H, RDW Coeff of Denzel 13.1, Plt Count 181, MPV 10.7, Immature Gran % (Auto) 0.900, Neut % (Auto) 72.4 H, Lymph % (Auto) 15.7 L, [place] % (Auto) 8.9, Eos % (Auto) 1.5, Baso % (Auto) 0.6, Absolute Neuts (auto) 11.7 H, Absolute Lymphs (auto) 2.55, Nucleated RBC % 0.4, D-Dimer Quant (PE/DVT) 3.38 H*, Sodium 138, Potassium 4.7, Chloride 104, Carbon Dioxide 29.0, Anion Gap 5, BUN 39 H, Creatinine 1.56 H, Est GFR (MDRD) Af Amer 47 L, Est GFR (MDRD) Non-Af 39 L, BUN/Creatinine Ratio 25.0 H, Glucose 127 H, Calcium 9.0 02/24/24 12:35: Urine Color Yellow, Urine Clarity Sl. Cloudy, Urine pH 5.0, Ur Specific [place] 1.025, Urine Protein 100 H, Urine Glucose (UA) Normal, Urine Ketones 5 H, Urine Occult Blood Negative, Urine Nitrite Negative, Urine Bilirubin 1 H, Urine Urobilinogen 4 H, Ur Leukocyte Esterase 25 H, Urine RBC 0 SEEN, Urine WBC 0-5 SEEN, Ur Squamous Epith Cells 0-5 SEEN, Amorphous Sediment 2+, Urine Bacteria 3+, Hyaline Casts 10-25 SEEN, Urine Mucus 1+ 02/24/24 14:55: Lactic Acid 1.0, Troponin I High Sens 411 H* 02/24/24 17:30: Troponin I High Sens 227 H* 02/24/24 18:30: PT 14.8, INR 1.2, APTT 26.8 02/24/24 20:40: Troponin I High Sens 179 H* 02/25/24 01:59: APTT 26.2 02/25/24 07:05: WBC 14.4 H, RBC 3.48 L, Hgb 11.2 L, Hct 36.7 L, MCV 105.5 H, MCH 32.2 H, MCHC 30.5 L, RDW Std Deviation 50.6 H, RDW Coeff of Denzel 13.2, Plt Count 143 L, MPV 11.4, Immature Gran % (Auto) 0.800, Neut % (Auto) 67.8, Lymph % (Auto) 18.9 L, [place] % (Auto) 9.0, Eos % (Auto) 3.0, Baso % (Auto) 0.5, Absolute Neuts (auto) 9.8 H, Absolute Lymphs (auto) 2.73, Nucleated RBC % 0.5, Sodium 140, Potassium 5.0, Chloride 104, Carbon Dioxide 35.0 H, Anion Gap 1 L, BUN 38 H, Creatinine 1.00, Estim Creat Clear Calc 92.78, Est GFR (MDRD) Af Amer 79, Est GFR (MDRD) Non-Af 65, BUN/Creatinine Ratio 38.2 H, Glucose 100, Calcium 8.9 Radiography Diagnostic Testing: Radiology Impression Shoulder X-Ray 02/24/24 09:45 IMPRESSION: Normal x-ray examination of the shoulder. Electronically Signed: Daniel Boykin MD at 10:07 EST , Chest X-Ray 02/24/24 10:30 IMPRESSION: Cardiomegaly and CHF. Prominence of the central pulmonary arteries. Electronically Signed: Daniel Boykin MD at 10:56 EST , Chest CTA 02/24/24 11:20 IMPRESSION: No evidence of pulmonary embolism. Residual bilateral ground glass appearance more prominent in the upper lobes suggest vascular congestion mild CHF. Cardiomegaly with enlargement of the right atrium. Enlargement of the central pulmonary arteries. Electronically Signed: Daniel Boykin MD at 12:17 EST , Renal Ultrasound 02/24/24 16:40 IMPRESSION: Negative renal ultrasound. Electronically Signed: Mark Dale MD at 6:59 EST , Rhythm Strip Rhythm Strip: Sinus Rhythm Rate: 70 Physical Exam Const Constitutional Narrative: sleeping, easily awoke. HEENT head/scalp atraumatic and moist oral mucous membranes Resp normal respiratory effort, no retractions, no use of accessory muscles and clear to auscultation bilaterally Cardio regular rate, regular rhythm, S1 normal heart sound and S2 normal heart sound GI normal to inspection, nondistended, normoactive bowel sounds and soft to palpation GI Narrative: obese. Extremity Extremity Narrative: edema, but overall improving. Assessment & Plan Assessment/Plan (1) NSTEMI, initial episode of care: PLAN: Elevated troponins but since trending down. Patient had similar issues back in December where patient was seen by cardiology and it was felt at that time to be demand ischemia. Currently, patient is on heparin drip Cardiology planning on a left heart cath. CTA of the chest was negative for PE. Pt with right shoulder pain. PLAN: Plan Chronic medical conditions: Class III obesity: BMI 56 on admit. Complicates hospital course, care and prognosis. COPD: On room air, not in acute exacerbation. Continue home inhalers. Hypothyroidism: Continue home Synthroid. Prader-Willi syndrome: Complicates care and prognosis. DACIA: Continue home CPAP at night. Chronic HFpEF with pulmonary hypertension: Just discharged with torsemide daily (previously BID, but changed due to DEJA--the admission MAR is incorrect). Will change furosemide to daily. CODE STATUS: Full code, verified Expected disposition: Back to intermediate, TBD Charges/Coding Visit Charges Inpatient E&M: 22393 Subs Hosp L2
--- NOTE | 2024-02-25 08:17 | PCM.CONS.C ---
Assessment & Plan Assessment/Plan (1) NSTEMI, initial episode of care: PLAN: Patient presents with likely noncardiac chest discomfort but is noted to have an abnormal troponin as well as T wave inversions. CT scan of the chest demonstrated no evidence of pulmonary embolism no coronary calcification. At this point due to her repeated admissions to the hospital as well as her EKG changes and her abnormal troponins it may be prudent to pursue a coronary angiogram to definitively exclude coronary artery disease. I discussed the above with her as well as with her guardian Ms. Tang and they are all in agreement. The above will be performed later today through the right radial approach. Risk benefits alternatives have been explained to the patient and her guardian and they understand and agree to proceed. Consent obtained. I will also recommend based on the results of the cardiac catheterization that we reevaluate her continued use of midodrine and beta-melchor. HPI Consult Data Date of Consult: 02/25/24 HPI Narrative HPI Narrative: JOSE ABDUL, is a 43 F who presents to the emergency room with right shoulder discomfort. She had a workup with did not demonstrate any significant abnormality and for reasons that are not entirely clear troponin was obtained and cardiology was consulted because the troponins were abnormal. Patient was also noted to have T wave inversions on her EKG which were slightly different from her admission earlier this year. She does have a history of obesity, Prader-Willi syndrome, respiratory failure with elevated CO2 and hypoxia during which she was admitted and was noted to have an elevated troponin level. She had a remote CTA which did not mention any evidence of coronary calcification. In August 2020 she did have pulmonary artery pressures which were noted to be in the 50s and the most recent echocardiogram done this year demonstrated preserved left ventricular systolic function both with a dilated right ventricle and pulmonary pressures noted to be approximately 65 millimeters of mercury. She denies any left-sided chest discomfort and no shortness of breath during this admission. There has been no fever no diaphoresis. Her EKG was evaluated and demonstrates sinus bradycardia with a rate of 51 bpm and diffuse T wave inversions. [facility] Medical History Kidney disease Irregular heart beat Hypothyroidism Non-smoker CPAP (continuous positive airway pressure) dependence Asthma Chest pain DVT (deep venous thrombosis) (HFpEF) heart failure with preserved ejection fraction HTN (hypertension) DACIA treated with BiPAP Morbid obesity with body mass index (BMI) greater than or equal to 50 Menorrhagia with regular cycle Cystocele with incomplete uterovaginal prolapse Prader-Willi syndrome Enlarged RV (right ventricle) COPD (chronic obstructive pulmonary disease) Hypothyroidism Prader-Willi syndrome Morbid obesity with BMI of 40.0-44.9, adult Sleep apnea Home Medications ?Medication ?Instructions ?Recorded ?Last Taken ?Type ammonium lactate 12 % topical cream 1 applicatio topical DAILY skin 10/26/13 12/26/23 History nystatin 100,000 unit/gram topical 1 applic topical BID rash 06/01/16 12/26/23 History powder clotrimazole 1 % topical cream 1 applic topical BID skin 04/08/17 12/26/23 History fluticasone propionate 50 50 mcg intranasal ONCE breathing 04/08/17 12/26/23 History mcg/actuation nasal spray,suspension norethindrone (contraceptive) 0.35 0.35 mg PO QDAY #84 tabs 06/02/23 12/26/23 Rx mg tablet (Arianna) levothyroxine 100 mcg tablet 100 mcg PO DAILY thyroid 12/26/23 12/26/23 History mometasone-formoterol HFA 100 2 inh inhalation BID breathing 12/26/23 12/26/23 History mcg-5 mcg/actuation aerosol inhaler (Dulera) multivitamin-ferrous 1 tab PO DAILY vitamin 12/26/23 12/26/23 History fumarate-folic acid 18 mg-400 mcg tablet (A Thru Z Advanced Formula) carvedilol 3.125 mg tablet 3.125 mg PO BID heart health #60 01/02/24 Unknown Rx tabs magnesium oxide 400 mg (241.3 mg 400 mg PO DAILY supplement 02/17/24 Unknown History magnesium) tablet omega-3 fatty acids 1,000 mg 1,000 mg PO DAILY supplement 02/17/24 Unknown History capsule midodrine 5 mg tablet 10 mg (2 x 5 mg) PO TIDCM #90 tabs 02/19/24 Unknown Rx torsemide 20 mg tablet 20 mg PO BID CHF 02/24/24 Unknown History Allergy/AdvReac Type Severity Reaction Status Date / Time insect venom (insect bites) Allergy Intermediate Itching Verified 02/24/24 09:17 phenytoin sodium (From Allergy Unknown Verified 02/24/24 09:17 Dilantin) phenytoin sodium extended Allergy Unknown Verified 02/24/24 09:17 (From Dilantin) venom-honey bee (bee venom Allergy Unknown Verified 02/24/24 09:17 (honey bee)) Family History Grandmother Diabetes Heart disease Hypertension Mother Diabetes Grandfather Hypertension Father No problems noted. Surgical History History of coronary artery stent placement History of tonsillectomy and adenoidectomy Social History household members: none housing: other details: [employer]. Smoking Status: Never smoker alcohol intake: never substance use type: does not use caffeine: Yes frequency: daily seatbelt use: always do you feel safe at home: Yes additional social history: Louis STARKS Constitutional Constitutional: Denies fever(s) or weight loss Eyes Eyes: Reports systems reviewed and no addt'l complaints, except as documented ENT HEENT: Reports systems reviewed and no addt'l complaints, except as documented Cardiovascular Cardiovascular: Denies chest pain at rest, chest pain with activity, dyspnea at rest, dyspnea on exertion, edema, palpitations or paroxysmal nocturnal dyspnea Respiratory/Chest Respiratory/Chest: Denies dyspnea on exertion, productive cough, shortness of breath at rest or shortness of breath with exertion Gastrointestinal Gastrointestinal: Denies change in bowel habits, nausea, vomiting or weight changes Genitourinary Genitourinary: Denies difficulty urinating Musculoskeletal Musculoskeletal: Reports other Details: right shoulder pain. ; Denies joint stiffness or muscle weakness Integumentary Integumentary: Denies lesions Neurologic Neurologic: Denies dizziness or syncope Psychiatric Psychiatric: Denies anxiety Endocrine Endocrinology: Denies excessive sweating or fatigue Hematologic/Lymphatic Hematologic/Lymphatic: Denies anemia Allergic/Immunologic Allergic/Immunologic: Denies seasonal rhinorrhea Physical Exam Const alert, oriented x3 and no apparent distress General Appearance: cooperative HEENT hearing grossly normal bilaterally Head and Scalp: atraumatic Eyes EOMs intact bilaterally Neck General: normal visual inspection Chest inspection of chest normal and palpation of chest normal Resp normal respiratory effort Auscultation: clear to auscultation bilaterally Cardio regular rate, regular rhythm, S1 normal heart sound and S2 normal heart sound Jugular Venous Distention: JVD GI normal to inspection, nondistended, normoactive bowel sounds Extremity normal capillary refill and no pedal edema Peripheral Pulses: Yes pulses 2+ throughout and femoral pulses present Skin no rashes or lesions noted Neuro oriented x3 and CN's II-XII intact bilaterally Psych Appearance: grossly normal and appropriate Risk Stratification Risk Stratification Applicable: Yes Age >/= 65: No >/= 3 CAD Risk Factors (HTN, HLD, DM, family hx of CAD, or current smoker): No Aspirin Use in the Past 7 Days: No Severe Angina (>/= episodes in 24 hours): No EKG ST Changes >/= 0.5mm: No Positive Cardiac Marker: Yes CHIKIS Risk Stratification Score: 1 CHIKIS % Risk: 5% Risk Objective Data Vital Signs: Vital Signs Temp Pulse Resp BP Pulse Ox O2 Del Method O2 Flow Rate 97.7 F L 57 L 18 112/80 97 Room Air 1 02/25/24 07:42 02/25/24 07:42 02/25/24 07:42 02/25/24 07:42 02/25/24 07:42 02/25/24 07:42 02/25/24 06:45 Oxygen Flow Rate (L/min) 1 Oxygen Delivery Method Room Air Weight: 287 lb 0.67 oz Body Mass Index (BMI) 56.0 Intake & Output: Intake and Output for Last 24 Hours 02/23/24 02/24/24 02/25/24 23:59 23:59 23:59 Intake Total 257.17 / 657.17 400 / 400 Balance 257.17 / 657.17 400 / 400 Lab / Micro Data 02/25/24 07:05 02/25/24 07:05 Labs: Laboratory Results - last 24 hr 02/24/24 10:50: WBC 16.2 H, RBC 3.61 L, Hgb 11.6 L, Hct 37.8, MCV 104.7 H, MCH 32.1 H, MCHC 30.7 L, RDW Std Deviation 49.3 H, RDW Coeff of Denzel 13.1, Plt Count 181, MPV 10.7, Immature Gran % (Auto) 0.900, Neut % (Auto) 72.4 H, Lymph % (Auto) 15.7 L, [place] % (Auto) 8.9, Eos % (Auto) 1.5, Baso % (Auto) 0.6, Absolute Neuts (auto) 11.7 H, Absolute Lymphs (auto) 2.55, Nucleated RBC % 0.4, D-Dimer Quant (PE/DVT) 3.38 H*, Sodium 138, Potassium 4.7, Chloride 104, Carbon Dioxide 29.0, Anion Gap 5, BUN 39 H, Creatinine 1.56 H, Est GFR (MDRD) Af Amer 47 L, Est GFR (MDRD) Non-Af 39 L, BUN/Creatinine Ratio 25.0 H, Glucose 127 H, Calcium 9.0 02/24/24 12:35: Urine Color Yellow, Urine Clarity Sl. Cloudy, Urine pH 5.0, Ur Specific [place] 1.025, Urine Protein 100 H, Urine Glucose (UA) Normal, Urine Ketones 5 H, Urine Occult Blood Negative, Urine Nitrite Negative, Urine Bilirubin 1 H, Urine Urobilinogen 4 H, Ur Leukocyte Esterase 25 H, Urine RBC 0 SEEN, Urine WBC 0-5 SEEN, Ur Squamous Epith Cells 0-5 SEEN, Amorphous Sediment 2+, Urine Bacteria 3+, Hyaline Casts 10-25 SEEN, Urine Mucus 1+ 02/24/24 14:55: Lactic Acid 1.0, Troponin I High Sens 411 H* 02/24/24 17:30: Troponin I High Sens 227 H* 02/24/24 18:30: PT 14.8, INR 1.2, APTT 26.8 02/24/24 20:40: Troponin I High Sens 179 H* 02/25/24 01:59: APTT 26.2 02/25/24 07:05: WBC 14.4 H, RBC 3.48 L, Hgb 11.2 L, Hct 36.7 L, MCV 105.5 H, MCH 32.2 H, MCHC 30.5 L, RDW Std Deviation 50.6 H, RDW Coeff of Denzel 13.2, Plt Count 143 L, MPV 11.4, Immature Gran % (Auto) 0.800, Neut % (Auto) 67.8, Lymph % (Auto) 18.9 L, [place] % (Auto) 9.0, Eos % (Auto) 3.0, Baso % (Auto) 0.5, Absolute Neuts (auto) 9.8 H, Absolute Lymphs (auto) 2.73, Nucleated RBC % 0.5, Sodium 140, Potassium 5.0, Chloride 104, Carbon Dioxide 35.0 H, Anion Gap 1 L, BUN 38 H, Creatinine 1.00, Estim Creat Clear Calc 92.78, Est GFR (MDRD) Af Amer 79, Est GFR (MDRD) Non-Af 65, BUN/Creatinine Ratio 38.2 H, Glucose 100, Calcium 8.9 Rhythm Strip Rhythm Strip: Sinus Rhythm Rate: 70 Cardiology Labs/Tests 02/24/24 10:50: WBC 16.2 H, RBC 3.61 L, Hgb 11.6 L, Hct 37.8, MCV 104.7 H, MCH 32.1 H, MCHC 30.7 L, Plt Count 181, MPV 10.7, Immature Gran % (Auto) 0.900, Neut % (Auto) 72.4 H, Lymph % (Auto) 15.7 L, [place] % (Auto) 8.9, Eos % (Auto) 1.5, Baso % (Auto) 0.6, Absolute Neuts (auto) 11.7 H, Nucleated RBC % 0.4, D-Dimer Quant (PE/DVT) 3.38 H*, Sodium 138, Potassium 4.7, Chloride 104, Carbon Dioxide 29.0, Anion Gap 5, BUN 39 H, Creatinine 1.56 H, Est GFR (MDRD) Af Amer 47 L, Est GFR (MDRD) Non-Af 39 L, BUN/Creatinine Ratio 25.0 H, Glucose 127 H, Calcium 9.0 02/24/24 12:35: Urine Color Yellow, Urine Clarity Sl. Cloudy, Urine pH 5.0, Ur Specific [place] 1.025, Urine Protein 100 H, Urine Glucose (UA) Normal, Urine Ketones 5 H, Urine Occult Blood Negative, Urine Nitrite Negative, Urine Bilirubin 1 H, Urine Urobilinogen 4 H, Ur Leukocyte Esterase 25 H, Urine RBC 0 SEEN, Urine WBC 0-5 SEEN 02/24/24 14:55: Lactic Acid 1.0 02/24/24 18:30: PT 14.8, INR 1.2, APTT 26.8 02/25/24 01:59: APTT 26.2 02/25/24 07:05: WBC 14.4 H, RBC 3.48 L, Hgb 11.2 L, Hct 36.7 L, MCV 105.5 H, MCH 32.2 H, MCHC 30.5 L, Plt Count 143 L, MPV 11.4, Immature Gran % (Auto) 0.800, Neut % (Auto) 67.8, Lymph % (Auto) 18.9 L, [place] % (Auto) 9.0, Eos % (Auto) 3.0, Baso % (Auto) 0.5, Absolute Neuts (auto) 9.8 H, Nucleated RBC % 0.5, Sodium 140, Potassium 5.0, Chloride 104, Carbon Dioxide 35.0 H, Anion Gap 1 L, BUN 38 H, Creatinine 1.00, Est GFR (MDRD) Af Amer 79, Est GFR (MDRD) Non-Af 65, BUN/Creatinine Ratio 38.2 H, Glucose 100, Calcium 8.9 Rhythm: EKG: ECHO: Stress Test: Cardiac Cath: PCI: CT Surgery: Holter monitor: EPS: PPM: CXR: Chest CT Scan: Radiography Diagnostic Testing: Radiology Impression Shoulder X-Ray 02/24/24 09:45 IMPRESSION: Normal x-ray examination of the shoulder. Electronically Signed: Daniel Boykin MD at 10:07 EST Reading Location ID and State: [id number] [employer] , Service support , Chest X-Ray 02/24/24 10:30 IMPRESSION: Cardiomegaly and CHF. Prominence of the central pulmonary arteries. Electronically Signed: Daniel Boykin MD at 10:56 EST , Chest CTA 02/24/24 11:20 IMPRESSION: No evidence of pulmonary embolism. Residual bilateral ground glass appearance more prominent in the upper lobes suggest vascular congestion mild CHF. Cardiomegaly with enlargement of the right atrium. Enlargement of the central pulmonary arteries. Electronically Signed: Daniel Boykin MD at 12:17 EST , Renal Ultrasound 02/24/24 16:40 IMPRESSION: Negative renal ultrasound. Electronically Signed: Mark Dale MD at 6:59 EST ,
--- NOTE | 2024-02-25 08:58 | CASEMGMT ---
Insurance review for hospitals In-network with?MCR insurance if transfer is recommended is as follows: [facility], [place], [facility], [place], [facility], [facility], [facility], [facility], [place], [facility] ([facility]), and . Mima Zepeda, Discharge Planning Asst.
[2024-02-25 09:18] LABS: Internal QC Validated? YES +Cl - CLEAR BKGD; Pregnancy, Urine Negative Negative; Record Kit Lot#,Urine Preg 872158
[2024-02-25] MEDS: Fluticasone 0.05% 1 SPRAY NASAL.SRY NASAL (10:51)
--- NOTE | 2024-02-25 12:27 | CASEMGMT ---
KE called patient's Board of DD in shop service technician Jesica Morfin and left her a voice mail letting her know patient is in the hospital. KE also called the long-term RN Shaunna Moise and left her a voice mail inquiring if patient can return to the long-term when medically ready and provided she does okay with therapy. Jesica Morfin: [employer]-[phone] Fax- [phone]. Shaunna Moise RN with long-term- Phone- [phone] Number to fax orders to at d/c- [phone] Ruby Laughlin SENIOR DIRECTOR MARKETING ASHVIN
--- NOTE | 2024-02-25 14:02 | PN.CARD_ITS ---
Subjective Subjective Patient seen and evaluated. Underwent cardiac catheterization today. Objective Data Vital Signs: Vital Signs Temp Pulse Resp BP Pulse Ox O2 Del Method O2 Flow Rate 97.7 F L 59 L 16 121/87 H 94 Nasal Cannula 2 02/25/24 10:48 02/25/24 10:48 02/25/24 10:48 02/25/24 10:48 02/25/24 10:48 02/25/24 10:48 02/25/24 10:48 Oxygen Flow Rate (L/min) 2 Oxygen Delivery Method Nasal Cannula Weight: 287 lb 0.67 oz Body Mass Index (BMI) 56.0 Intake & Output: Intake and Output for Last 24 Hours 02/23/24 02/24/24 02/25/24 23:59 23:59 23:59 Intake Total 257.17 / 657.17 400 / 400 Output Total 400 / 400 Balance 257.17 / 657.17 0 / 0 Lab / Micro Data 02/25/24 07:05 02/25/24 07:05 Labs: Laboratory Results - last 24 hr 02/24/24 14:55: Lactic Acid 1.0, Troponin I High Sens 411 H* 02/24/24 17:30: Troponin I High Sens 227 H* 02/24/24 18:30: PT 14.8, INR 1.2, APTT 26.8 02/24/24 20:40: Troponin I High Sens 179 H* 02/25/24 01:59: APTT 26.2 02/25/24 07:05: WBC 14.4 H, RBC 3.48 L, Hgb 11.2 L, Hct 36.7 L, MCV 105.5 H, MCH 32.2 H, MCHC 30.5 L, RDW Std Deviation 50.6 H, RDW Coeff of Denzel 13.2, Plt Count 143 L, MPV 11.4, Immature Gran % (Auto) 0.800, Neut % (Auto) 67.8, Lymph % (Auto) 18.9 L, [place] % (Auto) 9.0, Eos % (Auto) 3.0, Baso % (Auto) 0.5, Absolute Neuts (auto) 9.8 H, Absolute Lymphs (auto) 2.73, Nucleated RBC % 0.5, Sodium 140, Potassium 5.0, Chloride 104, Carbon Dioxide 35.0 H, Anion Gap 1 L, BUN 38 H , Creatinine 1.00, Estim Creat Clear Calc 92.78, Est GFR (MDRD) Af Amer 79, Est GFR (MDRD) Non-Af 65, BUN/Creatinine Ratio 38.2 H, Glucose 100, Calcium 8.9 02/25/24 09:00: Urine Test Negative Micro: Microbiology 02/24/24 12:35 Urine, Clean Catch Urine Culture - Preliminary Culture exhibits no growth. Rhythm Strip Rhythm Strip: Sinus Rhythm Rate: 70 Cardiology Labs/Tests 02/24/24 14:55: Lactic Acid 1.0 02/24/24 18:30: PT 14.8, INR 1.2, APTT 26.8 02/25/24 01:59: APTT 26.2 02/25/24 07:05: WBC 14.4 H, RBC 3.48 L, Hgb 11.2 L, Hct 36.7 L, MCV 105.5 H, MCH 32.2 H, MCHC 30.5 L, Plt Count 143 L, MPV 11.4, Immature Gran % (Auto) 0.800, Neut % (Auto) 67.8, Lymph % (Auto) 18.9 L, [place] % (Auto) 9.0, Eos % (Auto) 3.0, Baso % (Auto) 0.5, Absolute Neuts (auto) 9.8 H, Nucleated RBC % 0.5, Sodium 140, Potassium 5.0, Chloride 104, Carbon Dioxide 35.0 H, Anion Gap 1 L, BUN 38 H, Creatinine 1.00, Est GFR (MDRD) Af Amer 79, Est GFR (MDRD) Non-Af 65, B UN/Creatinine Ratio 38.2 H, Glucose 100, Calcium 8.9 Rhythm: EKG: ECHO: Stress Test: Cardiac Cath: PCI: CT Surgery: Holter monitor: EPS: PPM: CXR: Chest CT Scan: Radiography Diagnostic Testing: Radiology Impression Renal Ultrasound 02/24/24 16:40 IMPRESSION: Negative renal ultrasound. Electronically Signed: Mark Dale MD at 6:59 EST Reading Location ID and State: [address] [place] [address] Tel , Service support , Echocardiogram 02/24/24 17:47 Interpretation Summary Normal LV size. Left ventricular systolic function is normal. The left ventricular ejection fraction is 60 %. Pulmonary artery systolic pressure is 66 mmHg. Moderately dilated right ventricle. Mild global right ventricular systolic dysfunction. Ordering Physician: Cindy Collier Referring Physician: SHERIF THAKUR Performed By: Jennifer Rincon RDCS Physical Exam Const alert, oriented x3 and no apparent distress General Appearance: cooperative HEENT hearing grossly normal bilaterally Head and Scalp: atraumatic Eyes EOMs intact bilaterally Neck General: normal visual inspection Chest inspection of chest normal and palpation of chest normal Resp normal respiratory effort Auscultation: clear to auscultation bilaterally Cardio regular rate, regular rhythm, S1 normal heart sound and S2 normal heart sound Jugular Venous Distention: JVD GI normal to inspection, nondistended, normoactive bowel sounds Extremity normal capillary refill and no pedal edema Peripheral Pulses: Yes pulses 2+ throughout and femoral pulses present Skin no rashes or lesions noted Neuro oriented x3 and CN's II-XII intact bilaterally Psych Appearance: grossly normal and appropriate Assessment & Plan Assessment/Plan (1) NSTEMI, initial episode of care: PLAN: Patient presents with likely noncardiac chest discomfort but is noted to have an abnormal troponin as well as T wave inversions. CT scan of the chest demonstrated no evidence of pulmonary embolism no coronary calcification. Cardiac catheterization performed today did confirm that there is no coronary disease. Echocardiogram demonstrated a moderately dilated right atrium with pulmonary pressures. My suspicion is that the elevated cardiac troponin enzymes as well as the T wave inversions are secondary to the above. No further coronary workup is needed. Will discontinue carvedilol Discontinue midodrine Expectant treatment only.
--- NOTE | 2024-02-25 14:18 | CHAPLAIN ---
Type of Pastoral Visit ___ Initial Visit ___ Follow-up Visit ___ On-call Visit ___ General Patient Visit ___ Spiritual Assessment ___ Family Conference ___ Bereavement ___ Rapid Response ___ Code Blue ___ Other (describe below) Pastoral Care Referral From ___ Patient ___ Family ___ Nurse ___ Physician ___ Equipment Coordinator ___ Maintenance Helper ___ Other (describe below) Sacrament/Intervention ___ Active listening ___ Anointing ___ Episcopalian ___ Bereavement ___ Communion ___ Susan exploration ___ ___ Life review ___ Prayer ___ Reconciliation ___ Sacrament of Sick ___ Supportive presence ___ Wedding ___ Other (describe below) Pastoral Comments patient and bed were out of the room; left a calling card
--- NOTE | 2024-02-25 14:42 | CASEMGMT ---
KE received a voice mail from Jesica Morfin. Jesica said the plan is for patient to return to the longterm. KE then received a call from Rafia, nurse with the longterm as well. Rafia said Shaunna Moise is the manufacturing plant technician. Rafia said she is electronic train control technician this week so she would be the one to reach out to when patient is ready. Rafia [phone]. Ruby LOCK
--- NOTE | 2024-02-25 14:58 | CASEMGMT ---
RODRÍGUEZ NOVOA chart review: Patient was admitted 01/22-01/26/24 for heart failure and 02/16-02/19/24 for DEJA with dehydration. Patient was discharged back to her [facility] with follow-up plans in place. Patient returned to [facility] ED on 02/24/24 for right shoulder pain. Patient was found to have an elevated troponin and was admitted for NSTEMI. Patient had heart cath today and was negative. RODRÍGUEZ NOVOA called nurse Rafia to confirm that patient was taking medication as prescribed per last discharge instructions. Rafia also confirms that they were following all dietary and fluid restrictions for patient. Rafia also states that patient was scheduled to see PCP 02/23 in the afternoon but returned to ED prior to appt. Rafia states they are in the process of replacing her lymphedema pumps. Rafia had no further questions or concerns. Plan is for patient to return to [facility] with follow-up plans in place.
--- NOTE | 2024-02-25 15:13 | PCM.DC.SUM ---
Providers Date of Admission: 02/24/24 Primary Care Physician: Dr. Sherif Thakur MD Consultations 02/24/24 20:11 Consult: Cardiology Routine Consulting Provider: Fran Hodges Reason for Consult: Atypical chest pain, ekg changes, elevated trop now down trending EMERGENT Consult: No MD Notified: Yes Date Notified: 02/24/24 Time Notified: 20:11 Method of Notification: Text Reason For Visit: HYPOTENSION, ALOC Diagnosis Discharge Diagnosis (1) NSTEMI, initial episode of care: Status: Acute Code(s): I21.4 - Non-ST elevation (NSTEMI) myocardial infarction Plan: Elevated troponins but since trending down. Patient had similar issues back in December where patient was seen by cardiology and it was felt at that time to be demand ischemia. Currently, patient is on heparin drip Cardiology planning on a left heart cath. CTA of the chest was negative for PE. Pt with right shoulder pain. Plan Chronic medical conditions: Class III obesity: BMI 56 on admit. Complicates hospital course, care and prognosis. COPD: On room air, not in acute exacerbation. Continue home inhalers. Hypothyroidism: Continue home Synthroid. Prader-Willi syndrome: Complicates care and prognosis. DACIA: Continue home CPAP at night. Chronic HFpEF with pulmonary hypertension: Just discharged with torsemide daily (previously BID, but changed due to DEJA--the admission MAR is incorrect). Will change furosemide to daily. CODE STATUS: Full code, verified Expected disposition: Back to custodial, TBD Medications at Discharge Home Medications ammonium lactate 12 % topical cream 1 applicatio topical DAILY skin 10/26/13 nystatin 100,000 unit/gram topical powder 1 applic topical BID rash 06/01/16 clotrimazole 1 % topical cream 1 applic topical BID skin 04/08/17 fluticasone propionate 50 mcg/actuation nasal spray,suspension 50 mcg intranasal ONCE breathing 04/08/17 norethindrone (contraceptive) 0.35 mg tablet (Arianna) 0.35 mg PO QDAY #84 tabs 06/02/23 levothyroxine 100 mcg tablet 100 mcg PO DAILY thyroid 12/26/23 mometasone-formoterol HFA 100 mcg-5 mcg/actuation aerosol inhaler (Dulera) 2 inh inhalation BID breathing 12/26/23 multivitamin-ferrous fumarate-folic acid 18 mg-400 mcg tablet (A Thru Z Advanced Formula) 1 tab PO DAILY vitamin 12/26/23 carvedilol 3.125 mg tablet 3.125 mg PO BID heart health #60 tabs 01/02/24 magnesium oxide 400 mg (241.3 mg magnesium) tablet 400 mg PO DAILY supplement 02/17/24 omega-3 fatty acids 1,000 mg capsule 1,000 mg PO DAILY supplement 02/17/24 midodrine 5 mg tablet 10 mg (2 x 5 mg) PO TIDCM #90 tabs 02/19/24 torsemide 20 mg tablet 20 mg PO DAILY CHF #30 tabs 02/25/24 Hospital Course Procedures Cardiac catheterization Summary of Care Provided Hospital Course: Patient presents with right shoulder pain. Underwent troponins that were abnormal though not as high as it had been previously. And troponins did trend down. Patient underwent cardiac catheterization that showed normal coronaries. Her shoulder pain and elevated troponins were not cardiac and elevated troponins are likely due to demand ischemia given her known history of heart failure. Patient was treated for heart failure but remained stable on room air. Previously, patient had been on torsemide twice daily but developed acute kidney injury. So patient will resume the torsemide daily thereafter. Weight / BMI Weight Weight: 130.2 kg Body Mass Index (BMI) 56.0 ABG / Lab / Microbiology Data 02/25/24 07:05 02/25/24 07:05 Laboratory: Laboratory Results - last 24 hr 02/24/24 14:55: Lactic Acid 1.0, Troponin I High Sens 411 H* 02/24/24 17:30: Troponin I High Sens 227 H* 02/24/24 18:30: PT 14.8, INR 1.2, APTT 26.8 02/24/24 20:40: Troponin I High Sens 179 H* 02/25/24 01:59: APTT 26.2 02/25/24 07:05: WBC 14.4 H, RBC 3.48 L, Hgb 11.2 L, Hct 36.7 L, MCV 105.5 H, MCH 32.2 H, MCHC 30.5 L, RDW Std Deviation 50.6 H, RDW Coeff of Denzel 13.2, Plt Count 143 L, MPV 11.4, Immature Gran % (Auto) 0.800, Neut % (Auto) 67.8, Lymph % (Auto) 18.9 L, [place] % (Auto) 9.0, Eos % (Auto) 3.0, Baso % (Auto) 0.5, Absolute Neuts (auto) 9.8 H, Absolute Lymphs (auto) 2.73, Nucleated RBC % 0.5, Sodium 140, Potassium 5.0, Chloride 104, Carbon Dioxide 35.0 H, Anion Gap 1 L, BUN 38 H, Creatinine 1.00, Estim Creat Clear Calc 92.78, Est GFR (MDRD) Af Amer 79, Est GFR (MDRD) Non-Af 65, BUN/Creatinine Ratio 38.2 H, Glucose 100, Calcium 8.9 02/25/24 09:00: Urine Test Negative Microbiology: Microbiology 02/24/24 12:35 Urine, Clean Catch Urine Culture - Preliminary Culture exhibits no growth. Radiography Diagnostic Testing: Radiology Impression Renal Ultrasound 02/24/24 16:40 IMPRESSION: Negative renal ultrasound. Electronically Signed: Mark Dale MD at 6:59 EST Reading Location ID and State: [address] [place] [address] Tel , Service support , Echocardiogram 02/24/24 17:47 Interpretation Summary Normal LV size. Left ventricular systolic function is normal. The left ventricular ejection fraction is 60 %. Pulmonary artery systolic pressure is 66 mmHg. Moderately dilated right ventricle. Mild global right ventricular systolic dysfunction. Ordering Physician: Cindy Collier Referring Physician: SHERIF THAKUR Performed By: Jennifer Rincon RDCS D/C Instructions Discharge Diet: - (1.5 L of fluid per day) DC O2, CPAP, BIPAP Needs Additional Home O2 Discharge instructions: No DC home with Oxygen: No Meaningful Use Info Meaningful Use Meaningful Use Diagnoses (Choose all that apply): None applicable Ischemic Stroke Statin Dosing Therapy Reference: STATIN DOSE THERAPY REFERENCE: * Patients > 75 years receive moderate or high dose statin therapy. * Patients 75 years or YOUNGER should receive HIGH intensity statin dose unless contraindicated. You will be required to document reason for non-treatment if statin daily dose does not meet guidelines. HIGH DOSE STATIN THERAPY DAILY Atorvastatin > than or = to 40 mg Rosuvastatin > than or = to 20 mg Amlodipine + Atorvastatin > than or = to 2.5/40 mg Ezetimibe + Simvastatin 10/80 mg Simvastatin 80mg Discharge Plan Admission Admit Date/Time: 02/24/24 16:09 Primary Reason for Your Visit: Right shoulder pain and elevated troponins Attending Provider: Manuel Garay Primary Care Provider: Sherif Thakur Consulting Providers: Fran Hodges; Cindy Collier Instructions Additional Instructions / Restrictions: Your x-ray look good. Ice to the area. Tylenol and Naprosyn for pain. Follow-up with your doctor if not improving. Return if worse or if you would develop a fever redness or swelling. Discharge Orders/Prescriptions Prescriptions: Continued fluticasone propionate 50 mcg/actuation spray,suspension 50 mcg INTRANASAL ONCE clotrimazole 1 % cream 1 applic TOPICAL BID norethindrone (contraceptive) [Arianna] 0.35 mg tablet 0.35 mg PO QDAY Qty: 84 4RF ammonium lactate 140 GM cream 1 applicatio TOPICAL DAILY Patient Comments: skin health nystatin 1 APPLIC bottle 1 applic TOPICAL BID magnesium oxide 400 mg (241.3 mg magnesium) tablet 400 mg PO DAILY omega-3 fatty acids 1,000 mg capsule 1,000 mg PO DAILY midodrine 5 mg Tablet 10 mg PO TIDCM Qty: 90 0RF A Thru Z Advanced Formula 18-400 mg-mcg tablet 1 tab PO DAILY Dulera 100-5 mcg/actuation HFA aerosol inhaler 2 inh inhalation BID levothyroxine 100 mcg tablet 100 mcg PO DAILY carvedilol 3.125 mg Tablet 3.125 mg PO BID Qty: 60 0RF Changed torsemide 20 mg tablet 20 mg PO DAILY Qty: 30 0RF Referrals / Follow Up: Sherif Thakur MD [Primary Care Provider] - Within 2 Weeks Disposition Disposition (needs filled in before D/C Order can be placed): Home, Self Care Charges/Coding Visit Charges Inpatient E&M: 74557 Disch Hosp
--- NOTE | 2024-02-25 16:03 | CASEMGMT ---
KE faxed patient's discharge instructions to Jesica Morfin at [facility]. KE called Rafia at the long-term and let her know about the discharge as well as patient's mom. Patient's discharge is now canceled. KE called Rafia and patient's mom letting them know the discharge has been canceled. Ruby Laughlin POLICY ADVISOR SCRIPT GIRL
[2024-02-25 21:04] LABS: BNP,B-Type NATRIURETIC PEPTIDE 1191.6 pg/mL (0-100)
[2024-02-25] MEDS: Acetaminophen 325 MG Tablet 650 MG PO (21:04)
[2024-02-25] MEDS: Atorvastatin Calcium 80 MG Tablet PO (21:05)
[2024-02-25] MEDS: NORETHINDRONE 0.35 MG TABLET PO (21:05)
--- NOTE | 2024-02-25 21:05 | CL.D_ITS ---
Patient Name: JOSE ABDUL Study Date: 02/25/2024 Performing: Fran Hodges MD Ht: 60 inches 152.4 cm : 1980 Wt: 287.4 lbs 130.2 kg Age: 43 Gender: female BSA: 2.18 PROCEDURE(S) PERFORMED DC02-([id number])LHC/COR CLINICAL PROFILE AND INDICATIONS Indications: ACS <= 24 hrs Heart Failure: None Stress/Imaging Stress/Image Study Performed: No CAD Presentations: Non-STEMI. Symptom onset Date/Time: 02/24/24 Time Not Available CONCLUSIONS Normal coronary arteries Normal LV size, wall motion,and systolic function Pulmonary hypertension per echocardiogram moderate. RECOMMENDATIONS Medical therapy DESCRIPTION OF PROCEDURE The patient arrived to the procedure lab. The risks and benefits of the procedure as well as a full description of our services here and current unavailability of surgical backup were fully explained to the patient and/or their significant other prior to the catheterization. The Timeout was completed, verifying the correct patient and procedure. The patient's procedural site was prepped and draped in the usual fashion. Local anesthetic was given subcutaneously to right radial region with Lidocaine 2%. Local anesthetic was given subcutaneously to right radial region with Lidocaine 2%. Local anesthetic was given subcutaneously to right groin region with Lidocaine 2%. Using a modified Seldinger technique, arterial access was obtained via the right radial artery, a 6Fr sheath was inserted., arterial access was obtained via the right femoral artery, a 5Fr sheath was inserted. Left Coronary Artery selective angiography was performed in multiple views using a 5 Fr. JL4 catheter. Right Coronary Artery selective angiography was then performed in multiple views using a 5 Fr. 3DRC (Franky) catheter.Contrast was injected through the sheath and the Right Iliac and Femoral artery were assessed for possible closure device.The arterial sheath was pulled and a Mynx closure device was deployed for hemostasis ro right groin. The arterial sheath was pulled and a TR Band was applied for hemostasis 12 ml of air CORONARY ANGIOGRAPHY DOMINANCE: Right Dominant LEFT HEART ASSESSMENT Normal LV wall motion Normal Left Ventricular systolic function Right ventricular dilatation and pulmonary hypertension per echocardiogram LEFT MAIN: Angiographically normal LEFT ANTERIOR DESCENDING ARTERY: Angiographically normal CIRCUMFLEX ARTERY: Angiographically normal RIGHT CORONARY ARTERY: Angiographically normal COMPLICATIONS No Complications PROCEDURE MEDICATIONS Versed 0.5 mg IV Fentanyl 25 mcg IV Versed 0.5 mg IV Fentanyl 25 mcg IV Oxygen: 2 L/min via nasal cannula Verapamil 2.5mg, Ntg 100mcgs given IA 02/25/2024 12:53:40 SUMMARY OF HEMODYNAMIC DATA Time AIR REST ECG 12:22:34 AO 112/74 (94) SA 12:44:08 AO 117/77 (94) 12:53:33 AO 117/74 (93) 13:04:13 AO 116/72 (91) 13:04:55 AO 131/74 (99) 13:29:29 AO 142/75 (100) 13:33:27 Signed By Fran Hodges MD On 02/25/2024 21:05:10 Fran Hodges MD
[2024-02-25] MEDS: Enoxaparin 40 MG/0.4 ML Syringe SC (21:06)
[2024-02-26] VITALS (9 sets, daily range): BP systolic 97–132; BP diastolic 51–79; PULSE 61–69; RESP 16–18; TEMP 36.4–37.1; O2SAT 91–100; BMI 56.0
[2024-02-26] MEDS: Levothyroxine 100 MCG Tablet PO (06:20)
[2024-02-26] MEDS: Albuterol 2.5 MG/3 ML VIAL.NEB. INHALATION (06:53)
[2024-02-26] MEDS: Budesonide Respules 0.5 MG/2 ML AMPUL.NEB. INHALATION (06:53)
[2024-02-26 07:25] LABS: Hematocrit 37.4 % (37-47); Mean Corp Hgb Conc 29.4 g/dL (32-36); Mean Corpuscular Hgb 31.3 pg (27.0-32.0); Mean Corpuscular Volume 106.3 fL (81-99); Mean Platelet Vol. 11.2 fl (6.2-12.0); Platelet Count 126 K/mm3 (150-450); RBC Distribution Width CV 13.1 % (11.6-14.6); RBC Distribution Width SD 50.9 fl (35.1-43.9); Red Blood Count 3.52 M/mm3 (4.2-5.4); White Blood Count 12.7 K/mm3 (4.4-11.0)
[2024-02-26 07:55] LABS: Anion Gap 3 (5-15); BUN 30 mg/dL (7-18); BUN/Creat Ratio 40.2 RATIO (10-20); Calcium,Total 8.8 mg/dL (8.5-10.1); Chloride 104 mmol/L (98-107); Creatinine, Serum 0.75 mg/dL (0.55-1.02); EST Glomerular Filtration Rate 91 mL/min (>60); Est Glom Filt Rate - Afr Amer 110 mL/min (>60); Glucose 152 mg/dL (74-106); Potassium 4.2 mmol/L (3.5-5.1); Sodium Level 140 mmol/L (136-145)
--- NOTE | 2024-02-26 08:05 | PCM.PN.CARD ---
Subjective Subjective Patient seen and evaluated. Doing well. Mild pain in her groin and her wrist. Objective Data Vital Signs: Vital Signs Temp Pulse Resp BP Pulse Ox O2 Del Method O2 Flow Rate 97.5 F L 65 18 132/79 H 100 CPAP 2 02/26/24 06:01 02/26/24 06:01 02/26/24 06:01 02/26/24 06:01 02/26/24 06:01 02/26/24 06:01 02/26/24 06:01 Oxygen Flow Rate (L/min) 2 Oxygen Delivery Method CPAP Weight: 287 lb 0.67 oz Body Mass Index (BMI) 56.0 Intake & Output: Intake and Output for Last 24 Hours 02/24/24 02/25/24 02/26/24 23:59 23:59 23:59 Intake Total 257.17 / 657.17 1120 / 1120 220 / 220 Output Total 400 / 400 250 / 250 Balance 257.17 / 657.17 720 / 720 -30 / -30 Lab / Micro Data 02/26/24 07:08 02/26/24 07:08 Labs: Laboratory Results - last 24 hr 02/24/24 10:50: B-Natriuretic Peptide 1191.6 H 02/25/24 09:00: Urine Test Negative 02/26/24 07:08: WBC 12.7 H, RBC 3.52 L, Hgb 11.0 L, Hct 37.4, MCV 106.3 H, MCH 31.3, MCHC 29.4 L, RDW Std Deviation 50.9 H, RDW Coeff of Denzel 13.1, Plt Count 126 L, MPV 11.2, PT Cancelled, INR Cancelled, APTT Cancelled, Sodium 140, Potassium 4.2, Chloride 104, Carbon Dioxide 33.0 H, Anion Gap 3 L, BUN 30 H, Creatinine 0.75, Estim Creat Clear Calc 123.70, Est GFR (MDRD) Af Amer 110, Est GFR (MDRD) Non-Af 91, BUN/Creatinine Ratio 40.2 H, Glucose 152 H, Calcium 8.8 Micro: Microbiology 02/24/24 12:35 Urine, Clean Catch Urine Culture - Preliminary Culture exhibits no growth. Rhythm Strip Rhythm Strip: Sinus Rhythm Rate: 70 Cardiology Labs/Tests 02/24/24 10:50: B-Natriuretic Peptide 1191.6 H 02/26/24 07:08: WBC 12.7 H, RBC 3.52 L, Hgb 11.0 L, Hct 37.4, MCV 106.3 H, MCH 31.3, MCHC 29.4 L, Plt Count 126 L, MPV 11.2, PT Cancelled, INR Cancelled, APTT Cancelled, Sodium 140, Potassium 4.2, Chloride 104, Carbon Dioxide 33.0 H, Anion Gap 3 L, BUN 30 H, Creatinine 0.75, Est GFR (MDRD) Af Amer 110, Est GFR (MDRD) Non-Af 91, BUN/Creatinine Ratio 40.2 H, Glucose 152 H, Calcium 8.8 Rhythm: EKG: ECHO: Stress Test: Cardiac Cath: PCI: CT Surgery: Holter monitor: EPS: PPM: CXR: Chest CT Scan: Radiography Diagnostic Testing: Radiology Impression Echocardiogram 02/24/24 17:47 Interpretation Summary Normal LV size. Left ventricular systolic function is normal. The left ventricular ejection fraction is 60 %. Pulmonary artery systolic pressure is 66 mmHg. Moderately dilated right ventricle. Mild global right ventricular systolic dysfunction. Ordering Physician: Cindy Collier Referring Physician: SHERIF THAKUR Performed By: Jennifer Rincon RDCS Physical Exam Const alert, oriented x3 and no apparent distress General Appearance: cooperative HEENT hearing grossly normal bilaterally Head and Scalp: atraumatic Eyes EOMs intact bilaterally Neck General: normal visual inspection Chest inspection of chest normal and palpation of chest normal Resp normal respiratory effort Auscultation: clear to auscultation bilaterally Cardio regular rate, regular rhythm, S1 normal heart sound and S2 normal heart sound Jugular Venous Distention: JVD GI normal to inspection, nondistended, normoactive bowel sounds Extremity normal capillary refill and no pedal edema Peripheral Pulses: Yes pulses 2+ throughout and femoral pulses present Skin no rashes or lesions noted Neuro oriented x3 and CN's II-XII intact bilaterally Psych Appearance: grossly normal and appropriate Assessment & Plan Assessment/Plan (1) NSTEMI, initial episode of care: PLAN: Patient presents with likely noncardiac chest discomfort but is noted to have an abnormal troponin as well as T wave inversions. CT scan of the chest demonstrated no evidence of pulmonary embolism no coronary calcification. Cardiac catheterization performed did confirm that there is no coronary disease. Echocardiogram demonstrated a moderately dilated right atrium with pulmonary pressures. My suspicion is that the elevated cardiac troponin enzymes as well as the T wave inversions are secondary to the above. No further coronary workup is needed. Will discontinue carvedilol Discontinue midodrine Expectant treatment only.
[2024-02-26 09:06] LABS: International Normalized Ratio 1.2; Prothrombin Time (Protime)PT. 15.2 SECONDS (11.7-14.9)
[2024-02-26 09:07] LABS: Partial Thromboplast Time 28.8 Seconds (24.1-36.2)
[2024-02-26] MEDS: NORETHINDRONE 0.35 MG TABLET PO (10:07)
[2024-02-26] MEDS: Torsemide 20 MG Tablet PO (10:08)
[2024-02-26] MEDS: Enoxaparin 40 MG/0.4 ML Syringe SC (10:09)
[2024-02-26] MEDS: Aspirin E.C. 81 MG Tablet PO (10:09)
[2024-02-26] MEDS: Fluticasone 0.05% 1 SPRAY NASAL.SRY NASAL (10:09)
[2024-02-26] MEDS: Nystatin Powder 15gm Bottle 1 APPLIC TOPICAL (10:10)
--- NOTE | 2024-02-26 11:34 | NURSING ---
This RN spoke with pt's mother and listed contact, Deanne Zamora, and she is okay with sharing information with Shobha, health project manager interior design at [facility]. Lai ARREGUIN
--- NOTE | 2024-02-26 11:53 | NURSING ---
This RN received a call from pt's guardian, Shobha Arellano. Shobha states that Sia had called her complaining of excruciating pain. Shobha states that pt was near when she brought her in and that we have given her nothing to control her pain. This RN informed Shobha that Sia had negative imaging of the area and that primary RN Zander reported that pt had no pain this shift. Shobha argued that she believed we were not listening to Sia because of her disability and that she was becoming frustrated because we were just blowing her off. Shobha adds that if we discharge her home and that she complains of this pain, she will bring pt right back to the ER. Dr. Cullen was updated on Shobha's concerns. Lai ARREGUIN
--- NOTE | 2024-02-26 12:13 | CHAPLAIN ---
Type of Pastoral Visit _x__ Initial Visit ___ Follow-up Visit ___ On-call Visit ___ General Patient Visit ___ Spiritual Assessment ___ Family Conference ___ Bereavement ___ Rapid Response ___ Code Blue ___ Other (describe below) Pastoral Care Referral From _x_ Patient ___ Family ___ Nurse ___ Physician ___ Industrial Sales Manager ___ New Car Get Ready Mechanic ___ Other (describe below) Sacrament/Intervention _x__ Active listening ___ Anointing ___ Oriental Orthodox ___ Bereavement ___ Communion ___ Susan exploration ___ ___ Life review _x__ Prayer ___ Reconciliation ___ Sacrament of Sick _x__ Supportive presence ___ Wedding ___ Other (describe below) Pastoral Comments patient has been seen quite a few times in the last few months in previous admissions; pt describes what must have been a heart cath yesterday; pt states that the doctor is ready for her discharge today but she, the patient, does not want to go home yet; pt is upset emotionally and expressive about her ideas of staying in the hospital; pt has called her caregiver at home and told them her feelings too; this freight sorter offered calm presence, listening ear, reminder that the medical team will be returning to her room before discharge, and then this freight sorter contacted her nurse to inform of this conversation; pt also welcomed a prayer
[2024-02-26 13:08] LABS: Erythrocyte Sedimentation Rate 25 mm/hr (0-30)
--- NOTE | 2024-02-26 13:15 | CASEMGMT ---
RODRÍGUEZ NOVOA updated by U charge nursing Teresa regarding conversation with the penitentiary promotions coordinator, Shobha, stating that patient told her she was having left sided pain now and that the doctor ignored her. Shobha states she would just bring patient back to the ED if she is complaining of new pain. Hospitalist was notified and states that patient pointed to her right shoulder and did not mention pain to the left side. Hospitalist reviewed right shoulder x-ray and states it is muscular-skeletal pain and recommending PT/OT at outpatient and if not relief to follow up with othro. RODRÍGUEZ NOVOA called and spoke to Shaunna Moise RN at [facility] and updated regard conversation with U charge nurse regarding conversation with Shobha and updates from hospitalist. Shaunna states she will reach out to staffing and follow-up with RODRÍGUEZ NOVOA. Shaunna states that [facility], PT, and OT. Hospitalist updated and feels patient is medically stable for discharge with outpatient follow-up. RODRÍGUEZ NOVOA updated PCU charge nurse of conversation with [facility] RN. [facility]MER will continue to follow this patient and plan for safe discharge.
[2024-02-26] MEDS: Acetaminophen 500 MG Tablet 1000 MG PO (13:21)
--- NOTE | 2024-02-26 14:00 | CASEMGMT ---
Addendum entered by Shaunna Negrete 02/26/24 16:41: RN CM attempted to call Shobha to notify of discharge, no answer, voice message left. RN CM recieved called from JORDAN Morataya. RN CM updated Rafia regarding recommendations for bilateral shoulder pain. RN CM updated Rafia regarding discharge. Rafia states she will update Shobha to arrange transport. Rafia had no further questions or concerns. Original Note: RN CM received call back from Shaunna Moise RN from [facility]. She updated this RN CM that Shobha's concern was that patient states that she is having new pain in the left side and was just concerned with recent health issues that this wasn't related. RN CM updated Shaunna that patient had heart cath that was negative as well as being negative for PEs per charting. Shaunna voiced understanding but want to just make sure patient was medically stable for discharge. RN CM updated Shaunna that this RN CM would discuss concern with hospitalist again. RN CM called hospitalist and updated regarding concern for left sided pain. Hospitalist states that patient pointed and discussed right should pain and did not mention left sided pain. RN CM to patient's room with hospiatlist on phone. RN CM asked if patient was having pain, patient states yes and pointing to left shoulder. RN CM asked patient if it hurt with movement, patient indicated yes. Hospitalist updated and states she will order xray of left shoulder and states that patient can still discharge to custodial with outpatient follow-up. RN CM updated patient of new xray order and that patient will discharge today with outpatient follow-up. Patient sighed and states she does not want to discharge. RN CM asked patient why she didn't want to discharge home. Patient states she wants her pain fixed now. Hospitalist updated on phone and states she will prescribe something for pain and recommend outpatient follow-up. RN CM updated patient who states she will have to wait days to see her doctor for follow-up. RN CM explained that her pain could be joint related and that the patient does not have to stay in hospital for treatment and that we will have to see if pain medication and HHC therapy will help pain, if not it is appropriate for patient to follow up with family doctor or ortho doctor for further recommendations and does not require hospitalization. Patient withdrawing from conversation and had no further questions or concern when asked. Hospitalist aware of conversation as shes still on the phone. RODRÍGUEZ NOVOA called and updated Shaunna Moise RN and voiced understanding. Shaunna states to call Shobha when patient is discharged and to setup transport [phone] . RODRÍGUEZ NOVOA updated PCU charge nurse and floor nurse of [facility] xray. RODRÍGUEZ NOVOA updated SW.
--- NOTE | 2024-02-26 14:35 | RAD_ITS ---
INDICATION: pain EXAMINATION/TECHNIQUE: X-RAY - LEFT XR Shoulder Min 2 Views 4 VIEWS COMPARISON: No relevant prior comparison study available FINDINGS: SOFT TISSUES: No soft tissue swelling or gas. No radiopaque foreign body. Prominent left hilar vessels. BONES/JOINTS: No acute fracture or subluxation.. Normal alignment. Preservation of the joint space.. No sclerotic or destructive changes observed. RAD/Shoulder min 2 Views IMPRESSION: No fracture or malalignment. Electronically Signed: Mark Dale MD at 2:27 EST ,
--- NOTE | 2024-02-26 16:28 | PCM.DC.SUM ---
Providers Date of Admission: 02/24/24 Date of Discharge: 02/26/24 Primary Care Physician: Dr. Marilee Pérez MD Consultations 02/24/24 20:11 Consult: Cardiology Routine Consulting Provider: Fran Hodges Reason for Consult: Atypical chest pain, ekg changes, elevated trop now down trending EMERGENT Consult: No MD Notified: Yes Date Notified: 02/24/24 Time Notified: 20:11 Method of Notification: Text Reason For Visit: HYPOTENSION, ALOC Diagnosis Discharge Diagnosis (1) NSTEMI, initial episode of care: Status: Acute Code(s): I21.4 - Non-ST elevation (NSTEMI) myocardial infarction Medications at Discharge Home Medications ammonium lactate 12 % topical cream 1 applicatio topical DAILY skin 10/26/13 nystatin 100,000 unit/gram topical powder 1 applic topical BID rash 06/01/16 clotrimazole 1 % topical cream 1 applic topical BID skin 04/08/17 fluticasone propionate 50 mcg/actuation nasal spray,suspension 50 mcg intranasal ONCE breathing 04/08/17 norethindrone (contraceptive) 0.35 mg tablet (Arianna) 0.35 mg PO QDAY #84 tabs 06/02/23 levothyroxine 100 mcg tablet 100 mcg PO DAILY thyroid 12/26/23 mometasone-formoterol HFA 100 mcg-5 mcg/actuation aerosol inhaler (Dulera) 2 inh inhalation BID breathing 12/26/23 multivitamin-ferrous fumarate-folic acid 18 mg-400 mcg tablet (A Thru Z Advanced Formula) 1 tab PO DAILY vitamin 12/26/23 carvedilol 3.125 mg tablet 3.125 mg PO BID heart health #60 tabs 01/02/24 magnesium oxide 400 mg (241.3 mg magnesium) tablet 400 mg PO DAILY supplement 02/17/24 omega-3 fatty acids 1,000 mg capsule 1,000 mg PO DAILY supplement 02/17/24 torsemide 20 mg tablet 20 mg PO DAILY CHF #30 tabs 02/25/24 oxycodone 5 mg tablet 5 mg PO Q6H PRN PRN Pain Score 4-5 5 days #20 tabs 02/26/24 Hospital Course Operations None Procedures 2-D Echocardiogram, Cardiac catheterization, EKG and - (Bilateral shoulder x-rays/chest x-ray/CT chest/renal ultrasound) Summary of Care Provided Minutes Spent on Discharge: 41 Hospital Course: Ms. Ortiz is a 43-year-old -[place] female with a history of Prader-Willi syndrome who presented to the emergency department at [facility] on 02/24/2024 due to right shoulder discomfort. She resides at a [facility]cc and her guardian is her mother. She evidently began having right-sided chest pain in the upper chest and right shoulder pain on the night prior to presentation she reported that it radiated some but pattern was difficult to ascertain. She denies any trauma or injury to this area. She did not endorse any exacerbating or relieving factors initially however then she finally said when she was walking with her walker the pain significantly increased. Her community health worker reported that she was crying and bothered her so much. They tried naproxen which did not help and given her lack of improvement with the naproxen they brought her to the emergency department for evaluation. The community health worker did not feel she was a little bit more short of breath and typical at baseline with exertion and she had a bit more peripheral edema than normal. She has followed with cardiology at [facility]. Vital signs on presentation were overtly unremarkable other than mild hypotension. Temperature was 97.9, heart rate 73, respiratory 18, blood pressure 89/66 and pulse ox was 96% on room air. CBC showed a mildly elevated white count at 16.2 but this appears to be chronic when compared to previous lab. Hemoglobin was 11.6 which is baseline. Chemistry panel showed normal electrolytes with a BUN of 39 and a serum creatinine of 1.56. Glucose was 127. Lactic acid was normal at 1.0. Initial troponin was 411 and they decreased at that time to 227 and then 179 with cycle troponin. BNP was elevated at 1191.6. UA was not consistent with infection. Given her troponin elevation she was admitted to the PCU and cardiology was consulted. An echocardiogram was performed and showed normal LV function with an EF of 60%, moderate to severe pulmonary artery hypertension with pulmonary artery pressure 66 mmHg, a moderately dilated RV with mild global RV dysfunction. She had severe tricuspid valve insufficiency. Given her troponin elevation, cardiology was consulted and recommended cardiac catheterization which was performed on 02/25/2024. Catheterization showed normal coronary arteries, pulmonary hypertension that was moderate and medical therapy was recommended with ongoing diuretics. Postprocedure she became a bit hypotensive related to medications for sedation she was given during the procedure but has recovered at this time. Patient initially complained of pain in her right arm at presentation I was able to review imaging and there did not seem to be any skeletal abnormality and exam seem to be more consistent with musculoskeletal etiology. She then complained of left shoulder pain later to nursing staff. I went back and evaluated and it was the same kind of musculoskeletal pain repeat imaging was performed and was unremarkable. I discussed both with the patient and her mom who was on her phone what we had done and the findings and what my recommendations were with regards to her shoulder and both voiced understanding. She is at high risk for readmission if she does not closely follow her weight with instructions to take extra diuretic with a weight gain of greater than 2 to 3 pounds in a 24-hour period. We have also recommended marked restriction of fluid to 1.5 L daily as well as sodium restriction to no more than 3 g daily. She already is undergoing home health and I suspect her shoulder pain was worse with walker usage because she was utilizing her shoulders. Exam is consistent with musculoskeletal pathology and we have ruled out any significant life-threatening etiology that could be contributing to this. If her shoulder pain does not get better in the next 2 to 3 weeks with ongoing physical therapy as an outpatient and utilization of Tylenol and as needed oxycodone I would recommend that she follow-up with Dr. Mills as an outpatient for further exam. Patient was able to be discharged back to her [facility] on 02/26/2024 in stable condition. I did update her mother prior to discharge with regards to her findings and the overall plan for her shoulder pain. Both mother and daughter voiced understanding. Discharge diagnoses: Troponin elevation secondary to demand ischemia from acute on chronic HFpEF -NSTEMI ruled out Bilateral shoulder pain-musculoskeletal in nature Pulmonary hypertension who group 3 Acute on chronic HFpEF COPD Hypothyroidism Prader-Willi syndrome DACIA DEJA Super morbid obesity Intertriginous candidiasis Hypertension Physical Exam Narrative Patient initially complained of pain in her right arm during my evaluation. I was able to review imaging and there did not seem to be any skeletal abnormality and exam seem to be more consistent with musculoskeletal etiology. She then complained of left shoulder pain later to nursing staff. I went back and evaluated and it was the same kind of musculoskeletal pain repeat imaging was performed and was unremarkable. I discussed both with the patient and her mom who was on her phone what we had done and the findings and what my recommendations were with regards to her shoulder and both voiced understanding. Const alert, no apparent distress and well nourished; Negative for average body habitus, no limitations or healthy appearing Constitutional Narrative: 43-year-old -[place] female with developmental delay due to Prader-Willi syndrome, morbidly obese, lying in bed, appears comfortable, nontoxic General Appearance: cooperative, comfortable, well kempt and well developed Orientation / Consciousness: awake, oriented to person, oriented to place and oriented to time Exam Limitations: no limitations Nutritional Appearance: morbidly obese HEENT normocephalic, head/scalp atraumatic, hearing grossly normal bilaterally and moist oral mucous membranes HEENT Narrative: Mallampati 4, no thrush Eyes EOMs intact bilaterally Eyes Narrative: No scleral icterus Neck supple Neck Narrative: Trachea midline, neck is short and thick Resp normal respiratory effort, no retractions, no use of accessory muscles and clear to auscultation bilaterally Auscultation: Negative for rales, rhonchi or wheezes Cardio regular rate, regular rhythm, S1 normal heart sound, S2 normal heart sound, no murmurs, no rub, no gallops and no clicks Cardio Narrative: Distant due to body habitus GI normal to inspection, nondistended, normoactive bowel sounds, soft to palpation and non-tender Extremity Extremity Narrative: Bilateral lower extremity edema but appears to be chronic in nature, 1-2+, no cyanosis or clubbing Skin skin turgor normal, no jaundice, no petechiae and no mottling Skin Narrative: Skin on legs is dry Neuro oriented x3, moves all extremities and no focal motor deficits Speech: speech normal Psych Psych Narrative: Mildly anxious, eye contact is good, patient interacts appropriately at times but then intermittently will withhold information Weight / BMI Weight Weight: 130.2 kg Body Mass Index (BMI) 56.0 ABG / Lab / Microbiology Data 02/26/24 07:08 02/26/24 07:08 Laboratory: Laboratory Results - last 24 hr 02/24/24 10:50: B-Natriuretic Peptide 1191.6 H 02/26/24 07:08: WBC 12.7 H, RBC 3.52 L, Hgb 11.0 L, Hct 37.4, MCV 106.3 H, MCH 31.3, MCHC 29.4 L, RDW Std Deviation 50.9 H, RDW Coeff of Denzel 13.1, Plt Count 126 L, MPV 11.2, ESR 25, PT Cancelled, INR Cancelled, APTT Cancelled, Sodium 140, Potassium 4.2, Chloride 104, Carbon Dioxide 33.0 H, Anion Gap 3 L, BUN 30 H, Creatinine 0.75, Estim Creat Clear Calc 123.70, Est GFR (MDRD) Af Amer 110, Est GFR (MDRD) Non-Af 91, BUN/Creatinine Ratio 40.2 H, Glucose 152 H, Calcium 8.8, C-React Prot Ext Range 65.60 H 02/26/24 08:18: PT 15.2 H, INR 1.2, APTT 28.8 Microbiology: Microbiology 02/24/24 12:35 Urine, Clean Catch Urine Culture - Final Culture exhibits no growth. D/C Instructions Discharge Diet: Low fat / Low cholesterol (Limit sodium intake to 3 g or less daily, limit fluid intake to 1.5 L or less daily) Discharge Activity: Return to Normal Activity DC O2, CPAP, BIPAP Needs RN Home O2 Qualification: Home O2 Qualification: Is the patient on home oxygen No 02/26/24 10:17 Home O2 Qualification: AT REST 1- Pulse Ox at rest 95 02/26/24 10:17 Home O2 Qualification: WITH AMBULATION 1- Pulse Ox with ambulation 91 02/26/24 10:17 1- Oxygen Flow Rate with 0 02/26/24 10:17 ambulation PSN CPAP & BiPAP: BiPAP & CPAP Settings per PSN Mode CPAP 02/26/24 01:25 Bipap Delivery Device Face Mask 02/26/24 01:25 BiPAP Expiratory Pressure 8 02/26/24 01:25 Total Flow Rate 2 02/26/24 01:25 Home O2 Discharge instructions: No Meaningful Use Info Meaningful Use Meaningful Use Diagnoses (Choose all that apply): None applicable Ischemic Stroke Statin Dosing Therapy Reference: STATIN DOSE THERAPY REFERENCE: * Patients > 75 years receive moderate or high dose statin therapy. * Patients 75 years or YOUNGER should receive HIGH intensity statin dose unless contraindicated. You will be required to document reason for non-treatment if statin daily dose does not meet guidelines. HIGH DOSE STATIN THERAPY DAILY Atorvastatin > than or = to 40 mg Rosuvastatin > than or = to 20 mg Amlodipine + Atorvastatin > than or = to 2.5/40 mg Ezetimibe + Simvastatin 10/80 mg Simvastatin 80mg Discharge Plan Admission Admit Date/Time: 02/24/24 16:09 Primary Reason for Your Visit: Right shoulder pain and elevated troponins Attending Provider: Magnolia Cullen Primary Care Provider: Marilee Pérez Consulting Providers: Fran Hodges; Cindy Collier; Manuel Garay Instructions Additional Instructions / Restrictions: 1. I highly suspect your shoulder pain is musculoskeletal in nature. X-rays on both shoulders were unremarkable. I recommend outpatient physical therapy/home health physical therapy and if your shoulder pain does not improve with this and the pain medication we will be giving you I would recommend follow-up with orthopedic surgery as noted below 2. You can use ice or heat as needed to both shoulders--> whichever works better is fine 3. I encourage continued movement to avoid frozen shoulder which is a condition where you cannot move your arms well anymore 4. Continue nocturnal CPAP 5. Please weigh the patient daily in the morning without clothes on and if she gains more than 2 to 3 pounds in a 24-hour. Please take an extra dose of torsemide that day and reevaluate the next day. Her fluid restriction to 1.5 L needs to be evaluated closely as does her sodium restriction of 3 g of salt daily or less. If not she will go back into heart failure and end up in the hospital again. 6. Please follow-up with your cosmetology educator at within the next 2 to 4 weeks if you would like to follow-up with cardiology here see below. Discharge Orders/Prescriptions Prescriptions: New oxycodone 5 mg Tablet 5 mg PO Q6H PRN PRN (Reason: Pain Score 4-5) 5 Days Qty: 20 0RF Continued fluticasone propionate 50 mcg/actuation spray,suspension 50 mcg INTRANASAL ONCE clotrimazole 1 % cream 1 applic TOPICAL BID norethindrone (contraceptive) [Arianna] 0.35 mg tablet 0.35 mg PO QDAY Qty: 84 4RF ammonium lactate 140 GM cream 1 applicatio TOPICAL DAILY Patient Comments: skin health nystatin 1 APPLIC bottle 1 applic TOPICAL BID magnesium oxide 400 mg (241.3 mg magnesium) tablet 400 mg PO DAILY omega-3 fatty acids 1,000 mg capsule 1,000 mg PO DAILY A Thru Z Advanced Formula 18-400 mg-mcg tablet 1 tab PO DAILY Dulera 100-5 mcg/actuation HFA aerosol inhaler 2 inh inhalation BID levothyroxine 100 mcg tablet 100 mcg PO DAILY carvedilol 3.125 mg Tablet 3.125 mg PO BID Qty: 60 0RF Changed torsemide 20 mg tablet 20 mg PO DAILY Qty: 30 0RF Discontinued midodrine 5 mg Tablet 10 mg PO TIDCM Qty: 90 0RF Referrals / Follow Up: Marilee Pérez MD [Primary Care Provider] - Within 1 Week Leon Mills DO [Med Staff - Active Staff] - Within 1 Month (if your are still having shoulder pain without improvement in one month) Fran Hodges MD [Med Staff - Active Staff] - Within 1 Month (Follow-up with unless you on a follow-up closer to home in which case call Dr. Hodges's office and set up an appointment to be seen within the next month with either himself or a nurse practitioner) Disposition Disposition (needs filled in before D/C Order can be placed): Home, Self Care Charges/Coding Visit Charges Inpatient E&M: 26771 Disch Hosp >30min
== END 2024-02-26 18:45 | disposition home or self-care (01) | DRG 286 ==
LOC: ED 15:31 → PCU 20:25
PROVIDERS: Internal Medicine Cardiovascular Disease; Admitting Provider Internal Medicine; Emergency Provider Emergency Medicine; PCP Internal Medicine; Visit Provider Internal Medicine
DX: I11.0 Hypertensive heart disease with heart failure (principal); I50.33 Acute on chronic diastolic (congestive) heart failure; I24.89 Other forms of acute ischemic heart disease; Z68.43 Body mass index [BMI] 50.0-59.9, adult; N17.9 Acute kidney failure, unspecified; Q87.11 Prader-Willi syndrome; I27.23 Pulmonary hypertension due to lung diseases and hypoxia; J44.9 Chronic obstructive pulmonary disease, unspecified; E03.9 Hypothyroidism, unspecified; E66.01 Morbid (severe) obesity due to excess calories; G47.33 Obstructive sleep apnea (adult) (pediatric); M25.511 Pain in right shoulder; M25.512 Pain in left shoulder; I95.89 Other hypotension; E66.813 Obesity, class 3; B37.2 Candidiasis of skin and nail; Z95.5 Presence of coronary angioplasty implant and graft; Z79.51 Long term (current) use of inhaled steroids; Z79.890 Hormone replacement therapy; Z79.82 Long term (current) use of aspirin; Z79.899 Other long term (current) drug therapy
CPT/HCPCS: 36415; 71045; 71275; 73030; 76770; 80048; 81001; 81025; 83605; 83880; 84484; 85025; 85027; 85379; 85610; 85652; 85730; 86140; 87086; 93005; 93308; 93454; 94640; 94660; 94762; 97162; 97166; 99152; 99153; 99252; 99285; C1760; J7040; P9612; Q9967; A4216; C1769; C1894; G0463; J1940; J3490

== ENCOUNTER 2024-02-27 06:29 | Inpatient (IN) | payer MEDICARE, MEDICAID, SELFPAY ==
[2024-02-27] VITALS (10 sets, daily range): BP systolic 115–141; BP diastolic 54–100; PULSE 61–67; RESP 12–20; TEMP 36.1–36.7; O2SAT 2–100; BMI 57.0
--- NOTE | 2024-02-27 06:27 | HP.PCM.HOS_ITS ---
HPI - General General Date of Admission: 02/27/24 HPI Narrative JOSE ABDUL, is a 43 F who [facility]. She was recently discharged yesterday on room air after being admitted for heart failure exacerbation. She was diuresed well and she was having some chest pain so she had a cardiac catheterization which showed normal coronary arteries. Echocardiogram on 02/24/2024 with an EF of 60% and a PASP of 6 6 mmHg with moderately dilated right ventricle. Issues arose last evening when she was attempting to wear CPAP and apparently became anxious and short of breath and desaturated into the 70s her the ED physician at the outside hospital. She had been placed on oxygen and was given a dose of her p.o. diuretic. She had significant response and here is down to 1 L nasal cannula and breathing well. [facility] Medical History Kidney disease Irregular heart beat Hypothyroidism Non-smoker CPAP (continuous positive airway pressure) dependence Asthma Chest pain DVT (deep venous thrombosis) (HFpEF) heart failure with preserved ejection fraction HTN (hypertension) DACIA treated with BiPAP Morbid obesity with body mass index (BMI) greater than or equal to 50 Menorrhagia with regular cycle Cystocele with incomplete uterovaginal prolapse Prader-Willi syndrome Enlarged RV (right ventricle) COPD (chronic obstructive pulmonary disease) Hypothyroidism Prader-Willi syndrome Morbid obesity with BMI of 40.0-44.9, adult Sleep apnea Home Medications ?Medication ?Instructions ?Recorded ?Last Taken ?Type ammonium lactate 12 % topical cream 1 applicatio topical DAILY skin 10/26/13 12/26/23 History nystatin 100,000 unit/gram topical 1 applic topical BID rash 06/01/16 12/26/23 History powder clotrimazole 1 % topical cream 1 applic topical BID skin 04/08/17 12/26/23 History fluticasone propionate 50 1 spray intranasal DAILY breathing 04/08/17 12/26/23 History mcg/actuation nasal spray,suspension norethindrone (contraceptive) 0.35 0.35 mg PO QDAY #84 tabs 06/02/23 12/26/23 Rx mg tablet (Arianna) levothyroxine 100 mcg tablet 100 mcg PO DAILY thyroid 12/26/23 12/26/23 History mometasone-formoterol HFA 100 2 inh inhalation BID breathing 12/26/23 12/26/23 History mcg-5 mcg/actuation aerosol inhaler (Dulera) multivitamin-ferrous 1 tab PO DAILY vitamin 12/26/23 12/26/23 History fumarate-folic acid 18 mg-400 mcg tablet (A Thru Z Advanced Formula) carvedilol 3.125 mg tablet 3.125 mg PO BID heart health #60 01/02/24 Unknown Rx tabs magnesium oxide 400 mg (241.3 mg 400 mg PO DAILY supplement 02/17/24 Unknown History magnesium) tablet omega-3 fatty acids 1,000 mg 1,000 mg PO DAILY supplement 02/17/24 Unknown History capsule torsemide 20 mg tablet 20 mg PO DAILY CHF #30 tabs 02/25/24 Unknown Rx oxycodone 5 mg tablet 5 mg PO Q6H PRN PRN Pain Score 4-5 02/26/24 Unknown Rx 5 days #20 tabs Allergy/AdvReac Type Severity Reaction Status Date / Time insect venom (insect bites) Allergy Intermediate Itching Verified 02/24/24 09:17 phenytoin sodium (From Allergy Unknown Verified 02/24/24 09:17 Dilantin) phenytoin sodium extended Allergy Unknown Verified 02/24/24 09:17 (From Dilantin) venom-honey bee (bee venom Allergy Unknown Verified 02/24/24 09:17 (honey bee)) Family History Grandmother Diabetes Heart disease Hypertension Mother Diabetes Grandfather Hypertension Father No problems noted. Surgical History History of coronary artery stent placement History of tonsillectomy and adenoidectomy Social History household members: none housing: other details: intermediate. Smoking Status: Never smoker alcohol intake: never substance use type: does not use caffeine: Yes frequency: daily seatbelt use: always do you feel safe at home: Yes additional social history: Louis STARKS Constitutional Constitutional: Denies chills, fatigue, fever(s) or malaise Eyes Eyes: Denies blurry vision ENT HEENT: Denies headache(s) or nasal discharge Cardiovascular Cardiovascular: Denies chest pain, dyspnea on exertion or syncope Respiratory/Chest Respiratory/Chest: Reports shortness of breath at rest; Denies cough or shortness of breath with exertion Gastrointestinal Gastrointestinal: Denies constipation, diarrhea, nausea or vomiting Genitourinary Genitourinary: Denies dysuria Neurologic Neurologic: Denies focal weakness, numbness or tremor(s) Psychiatric Psychiatric: Denies anxiety or depression Physical Exam Narrative General: Alert, Oriented x3, Cooperative, No apparent distress, morbidly obese which significantly limits physical exam findings HEENT: Atraumatic, PERRLA, EOMI, Normocephalic Oral: Moist Mucosa Neck: Supple, No JVD Lungs: Diminished, Normal air movement, No rhonchi, No wheeze, No rales Cardiovascular: Regular rate, Regular Rhythm, Normal S1, Normal S2, No murmurs Abdomen: Soft, Non Tender, Non-Distended, No Hepato-splenomegaly Extremities: Edema, Capillary Refill Less than 3 Seconds Skin: No rashes, No breakdown Musculoskeletal: No Tenderness to Palpation of Joints or Extremities Neurological: No focal neurological deficits, moves all extremities Psych/Mental Status: Flat Assessment & Plan Assessment/Plan (1) Prader-Willi syndrome: (2) Flash pulmonary edema: PLAN: Plan 1. Flash pulmonary edema in the setting of chronic diastolic CHF with right- sided heart failure from obstructive sleep apnea in the setting of Prader- Willi/pulmonary hypertension ? She has a chronic issue with right-sided heart failure secondary to obstructi ve sleep apnea, she is supposed be wearing CPAP consistently not sure how consistent she is with this, getting an appropriate history from her is complicated given her Prader-Willi syndrome. ? Based on chart review her quality of life is significantly diminished with her heart failure, because of this I had an extensive conversation with her us customs and border officer at bedside as I do believe that hospice may be appropriate at this point given the frequent readmissions and an the decrease in her quality of life. ? Would recommend evaluation by palliative care/hospice ? In the meantime continue with IV Bumex 1 mg twice daily, continue with CPAP ? Cardiology on her previous admission recommended discontinuation of her midodrine as well as her carvedilol 2. Hypothyroidism ? Stable ? Continue with her home Synthroid 3. COPD ? Stable ? Continue with her home inhalers when verified DVT: Heparin 75 minutes was spent on direct patient care, including documentation as well as chart review and collaboration with colleagues Charges/Coding Visit Charges Inpatient E&M: 41680 Init Hosp L3
--- NOTE | 2024-02-27 08:56 | PCM.PN.HOSP ---
Objective Data Objective Data Vital Signs: Vital Signs Temp Pulse Resp BP Pulse Ox O2 Del Method O2 Flow Rate 98.0 F 67 20 H 141/100 H 99 Nasal Cannula 2 02/27/24 06:35 02/27/24 06:35 02/27/24 06:35 02/27/24 06:35 02/27/24 06:35 02/27/24 06:55 02/27/24 06:55 Oxygen Flow Rate (L/min) 2 Oxygen Delivery Method Nasal Cannula Weight: 132.5 kg Body Mass Index (BMI) 57.0
[2024-02-27] MEDS: Bumetanide 1 MG/4 ML Vial IV ×2 (10:03→18:17)
[2024-02-27] MEDS: Nystatin Powder 15gm Bottle 1 APPLIC TOPICAL ×2 (10:04→21:46)
[2024-02-27] MEDS: Levothyroxine 100 MCG Tablet PO (10:04)
[2024-02-27] MEDS: Magnesium Chloride 64 MG Delay Rel.Tablet 128 MG PO (10:04)
[2024-02-27] MEDS: Omega-3 Acid Ethyl Esters 1 GM Capsule PO (10:04)
--- NOTE | 2024-02-27 10:45 | CASEMGMT ---
Social Work VM received from pt's Guard Rail Installer at the [facility] who provided the following information: Pt's physician who handles all care related to Prader-Willi Syndrome is through - Dr. Malorie Up [phone]. This physician has ordered a 1000 calorie diet per day that is adhered to the nursing home. [facility] is recommending that pt may need to go to SNF/rehab prior to return to the nursing home. Physician updated. Physician requesting to speak with pt mother regarding goals of care. Phone call placed to pt's mother who states she is at the hospital now and willing to speak with the physician. Physician notified. GERMÁN Knapp
--- NOTE | 2024-02-27 10:55 | CASEMGMT ---
Discharge Planning A list of SNF providers including quality and resource use data and consistent with the patient's preferred geographic region, medical needs, and insurance network was created in [employer] Guide.? This list was provided to the SW. Mima Zepeda Discharge Planning Asst.
--- NOTE | 2024-02-27 10:55 | CASEMGMT ---
Met with patient and her mother to complete FRANCO form. FRANCO form explained to both who voiced understanding and signed form. Original form placed in pt?s chart and copy provided to patient. Mima Zepeda, Discharge Planning Asst
--- NOTE | 2024-02-27 12:15 | CASEMGMT ---
Addendum entered by Vania Pearson 02/27/24 13:19: Social Work SW returned to pt room and met with pt, pt's mother and Jesica Shelbie [employer] machine maintenance servicer. Pt's mother does not want pt to go to a SNF at this time. Jesica is understanding and requesting additional help at the long-term to keep pt from returning to the hospital so often. Jesica and pt's mother agreeable to Palliative medicine. Also, requesting a hospital bed and home oxygen. SW explained the qualifications for home oxygen and that if pt meets qualifications it will be set up. Pt has not met these qualifications during other hospital visits. Pt stating that she feels better using her cpap when oxygen in bled into it at night. SW informed pt and family that SW will relay this to RNCM. Jesica and pt mother are stating that they feel pt's anxiety rises and at home and this causes staff anxiety to rise and this is a contributing factor to hospital readmissions. SW provided pt with list of mental health providers and resources on grounding techniques for anxiety. RNCM updated on discharge plan. GERMÁN Knapp Original Note: Social Work SW met with pt and pt's mother Deanne to discuss discharge plan. Pt's mother is agreeable that pt would benefit from SNF at discharge. Pt's mother is requesting TCU. KE explained that pt does not meet criteria for SNF under Medicare and pt will need to go to SNF under Medicaid and TCU does not accept Medicaid. A list of SNF providers including quality and resource use data and consistent with the patient?s preferred geographic region, medical needs, and insurance network were provided from the [facility] Guide. Pt mother requesting time to review list. GERMÁN Knapp
--- NOTE | 2024-02-27 13:30 | CASEMGMT ---
RODRÍGUEZ NOVOA in to discuss needs at discharge with patient, patient's mother, Jesica Morfin. RODRÍGUEZ NOVOA explained process and qualifications for hospital bed. Patient and mother agreeable to [facility]. Jesica Morfin voiced concerns for oxygen at discharge. RODRÍGUEZ NOVOA explained parameters for qualification and that patient will be tested prior to discharge and that patient could be testing on cpap without oxygen overnight to see if she qualifies. Patient, mother, and Jesica voiced appreciation, prefer [facility] for oxyge, and had no further questions or concerns. RODRÍGUEZ NOVOA updated hospitalist, script received for hospital bed and hospitalist will order overnight trending pulse ox. Green sheet placed on chart for home oxygen.
[2024-02-27] MEDS: Heparin Injection (Vial) 5,000 UNIT/ML VIAL 5000 UNIT SC ×2 (14:18→21:45)
--- NOTE | 2024-02-27 14:37 | CHAPLAIN ---
Type of Pastoral Visit _x__ Initial Visit ___ Follow-up Visit ___ On-call Visit ___ General Patient Visit ___ Spiritual Assessment ___ Family Conference ___ Bereavement ___ Rapid Response ___ Code Blue ___ Other (describe below) Pastoral Care Referral From _x__ Patient ___ Family ___ Nurse ___ Physician ___ Pouring Crane Operator ___ Manager Voice ___ Other (describe below) Sacrament/Intervention ___ Active listening ___ Anointing ___ Yazidism ___ Bereavement ___ Communion ___ Susan exploration ___ ___ Life review _x__ Prayer ___ Reconciliation ___ Sacrament of Sick _x__ Supportive presence ___ Wedding ___ Other (describe below) Pastoral Comments patient was just seen yesterday and then was released and came back today; pt is resting after she had taken a long walk in the hallway with the staff; mother is at her side and is interactive with this heel slicker; pt just mumbles answers while she attempts to nap in the chair; both say that they are doing okay now; both welcome a prayer for support
--- NOTE | 2024-02-27 15:11 | PCM.HOSP.N ---
Hospitalist Note Ms. Ortiz is a 43-year-old white female who was discharged yesterday if she was mated for chest pain and had a negative workup with a cardiac catheterization and CT of the chest. She also complained of bilateral shoulder pain and had negative x-rays. Shoulder pain was thought to be musculoskeletal. 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 Most recent echo was done on 02/25/2024 and showed a normal EF however her right ventricular systolic pressures were elevated at 66 mmHg. Echo prior to this done at this institution was in December 2023 and results were similar. At baseline she is on torsemide 20 mg daily and wears CPAP. She follows with a congenital paint roller assembler for her Prader-Willi syndrome and [place] and she states she has an upcoming appointment with him in early March. Hypovolemia has been significantly problematic for her as of recently. At the time of discharge yesterday she was lying flat on her back satting 96% on room air without any difficulty. Patient states she got home and through the night had to get up to go to the bathroom. She got up and came back to bed and placed her CPAP and felt like she was smothered and had discomfort in her chest although she had trouble describing exactly what she was sensing. She got more short of breath and they checked her oxygen saturation and she was 79% on room air. Given these findings, they sent her to the emergency department at [facility] and she was subsequently transferred here. BNP was markedly elevated [facility] at 13,000. Since admission she was placed on Bumex 1 mg IV twice daily and maintained on supplemental oxygen however requirements have been flow from room air to 2 L. She did have a recent CTA of her chest on 02/24/2024 that showed no PE, groundglass changes consistent with CHF, cardiomegaly especially noted enlargement of the RA and enlargement of the central pulmonary arteries. Will restrict her fluid intake to 1500 cc daily and salt intake to 2 g daily. Monitor I's and O's and daily weights. It sounds like this was almost flash pulmonary edema since she was doing well when she left here. Will try to wean oxygen with possible discharge home tomorrow depending on functional status. The patient has had frequent admissions and lives in a [facility]. We do feel that it may be beneficial for her to obtain a hospital bed in the [facility] environment as she is needing frequent changes in position to alleviate her respiratory symptoms, her head of bed needs to be elevated at 30 degrees at night due to respiratory status and in a regular bed it has been difficult to keep her in this position. This all is not feasible in a regular bed. We will reassess her tomorrow to consider possible discharge back to the [facility].
--- NOTE | 2024-02-27 15:44 | CASEMGMT ---
Script received for hospital bed and referral sent to [facility] via [facility].
[2024-02-27] MEDS: Carvedilol 3.125 MG TABLET PO (21:45)
[2024-02-27] MEDS: 0.9% Saline Lock 10 ML Syringe IV (21:55)
--- NOTE | 2024-02-27 23:12 | CPS ---
Overnight trend started with the patient on room air. Her baseline sat at rest but while also awake on room air was 83% within the first 8 minutes of the trend before CPAP was even initiated. The patient had been on 2L satting 100% immediately before the start of the trend. After the patient remained below 88% for several minutes RT placed patient back on 1L nasal cannula to bring sat up to 93% at rest. Patient stating she is not ready to wear the CPAP at this time because she would like a snack. RT made RN aware that the patient is currently hypoxic at baseline before evaluating oxygen demands while on CPAP therapy. RT will put in another note once the patient is started on CPAP therapy per home settings with no bleed in per physicians request.
[2024-02-28] VITALS (8 sets, daily range): BP systolic 97–114; BP diastolic 65–76; PULSE 60–80; RESP 18–20; TEMP 36.4–37.2; O2SAT 73–100; BMI 56.0
--- NOTE | 2024-02-28 01:59 | CPS ---
@0147 patient was finally ready to wear the CPAP for the night. CPAP +7 on room air was placed on the patient at this time. O2 sat 93% overnight trend still on as well.
--- NOTE | 2024-02-28 03:45 | CPS ---
@0310 RN made RT aware that the patient's pulse ox. was reading in the 70s with a good waveform on the CPAP of +7 with no oxygen bleed in. O2 was added to CPAP therapy at this time at 3L. RT at bedside to evaluate patient and @0321 oxygen was again increased to 4L due to consistent desaturations into the 80s. New sat on 4L through the CPAP of 7 is 95% patient sleeping soundly at this time.
[2024-02-28 05:50] LABS: Hematocrit 35.3 % (37-47); Hemoglobin 10.5 g/dL (12.0-15.0); Mean Corp Hgb Conc 29.7 g/dL (32-36); Mean Corpuscular Hgb 31.3 pg (27.0-32.0); Mean Corpuscular Volume 105.4 fL (81-99); Mean Platelet Vol. 11.6 fl (6.2-12.0); Platelet Count 149 K/mm3 (150-450); RBC Distribution Width CV 13.2 % (11.6-14.6); RBC Distribution Width SD 50.5 fl (35.1-43.9); Red Blood Count 3.35 M/mm3 (4.2-5.4); White Blood Count 12.9 K/mm3 (4.4-11.0)
[2024-02-28] MEDS: Levothyroxine 100 MCG Tablet PO (06:47)
[2024-02-28] MEDS: Heparin Injection (Vial) 5,000 UNIT/ML VIAL 5000 UNIT SC ×3 (06:47→20:39)
[2024-02-28 07:03] LABS: Anion Gap 2 (5-15); BUN 29 mg/dL (7-18); BUN/Creat Ratio 42.7 RATIO (10-20); Calcium,Total 8.3 mg/dL (8.5-10.1); Chloride 103 mmol/L (98-107); Creatinine, Serum 0.68 mg/dL (0.55-1.02); EST Glomerular Filtration Rate 101 mL/min (>60); Est Glom Filt Rate - Afr Amer 122 mL/min (>60); Estimated Creatinine Clearance 136.43 ml/min; Glucose 93 mg/dL (74-106); Potassium 4.1 mmol/L (3.5-5.1); Sodium Level 144 mmol/L (136-145)
[2024-02-28 07:27] LABS: BNP,B-Type NATRIURETIC PEPTIDE 429.2 pg/mL (0-100)
[2024-02-28] MEDS: Fluticasone 0.05% 1 SPRAY NASAL.SRY NASAL (09:10)
[2024-02-28] MEDS: NORETHINDRONE 0.35 MG TABLET PO (09:11)
[2024-02-28] MEDS: Omega-3 Acid Ethyl Esters 1 GM Capsule PO (09:11)
[2024-02-28] MEDS: Magnesium Chloride 64 MG Delay Rel.Tablet 128 MG PO (09:11)
[2024-02-28] MEDS: Carvedilol 3.125 MG TABLET PO ×2 (09:11→20:39)
[2024-02-28] MEDS: Bumetanide 1 MG/4 ML Vial 2 MG IV ×2 (09:13→18:21)
[2024-02-28] MEDS: 0.9% Saline Lock 10 ML Syringe IV (09:15)
--- NOTE | 2024-02-28 17:25 | PCM.PN.HOSP ---
Reason for Visit Reason for Visit: Shortness of breath and hypoxia Subjective Subjective Patient states she does feel little bit better today. Desatted with ambulation requiring up to 15 L however nursing reported they she was breathing considerably through her mouth and or holding her breath during the walk. Currently 100% on 2 L nasal cannula. Seems to be diuresing well and down about 4 pounds since yesterday. No complaints today. Objective Data Objective Data Vital Signs: Vital Signs Temp Pulse Resp BP Pulse Ox O2 Del Method O2 Flow Rate 98.3 F 68 19 H 97/65 100 Nasal Cannula 2 02/28/24 15:50 02/28/24 15:50 02/28/24 15:50 02/28/24 15:50 02/28/24 15:50 02/28/24 15:50 02/28/24 15:50 FiO2 21 02/28/24 01:47 Oxygen Flow Rate (L/min) 2 Oxygen Delivery Method Nasal Cannula Weight: 130.2 kg Body Mass Index (BMI) 56.0 Intake & Output: Intake and Output for Last 24 Hours 02/26/24 02/27/24 02/28/24 23:59 23:59 23:59 Intake Total 900 / 900 420 / 420 Output Total 800 / 800 Balance 100 / 100 420 / 420 Lab / Micro Data 02/28/24 04:50 02/28/24 04:50 Labs: Laboratory Results - last 24 hr 02/28/24 04:50: WBC 12.9 H, RBC 3.35 L, Hgb 10.5 L, Hct 35.3 L, MCV 105.4 H, MCH 31.3, MCHC 29.7 L, RDW Std Deviation 50.5 H, RDW Coeff of Denzel 13.2, Plt Count 149 L, MPV 11.6, Sodium 144, Potassium 4.1, Chloride 103, Carbon Dioxide 39.0 H, Anion Gap 2 L, BUN 29 H, Creatinine 0.68, Estim Creat Clear Calc 136.43, Est GFR (MDRD) Af Amer 122, Est GFR (MDRD) Non-Af 101, BUN/Creatinine Ratio 42.7 H, Glucose 93, Calcium 8.3 L, B-Natriuretic Peptide 429.2 H Physical Exam Const alert, oriented x3, no apparent distress and well nourished; Negative for average body habitus or healthy appearing Constitutional Narrative: Middle-aged, -Spanish female, walking the hallways with nursing, appears comfortable, does not appear toxic, very pleasant HEENT head/scalp atraumatic and moist oral mucous membranes HEENT Narrative: Mallampati 4, no thrush Head and Scalp: normocephalic Resp normal respiratory effort, no retractions, no use of accessory muscles and No clear to auscultation bilaterally Resp Narrative: Very distant due to body habitus with crackles noted at the bases bilaterally Auscultation: crackles; Negative for rhonchi or wheezes Cardio regular rate, regular rhythm, S1 normal heart sound, S2 normal heart sound, no murmurs, no rub, no gallops and no clicks Cardio Narrative: Distant GI normal to inspection, nondistended, normoactive bowel sounds, soft to palpation and non-tender GI Narrative: Large protuberant abdomen Extremity Extremity Narrative: 2+ bilateral lower extremity pedal edema Neuro oriented x3, moves all extremities and no focal motor deficits Psych Psych Narrative: Interacts appropriately, very pleasant Assessment & Plan Assessment/Plan (1) Flash pulmonary edema: (2) Acute on chronic hypoxic respiratory failure: (3) Acute on chronic heart failure with preserved ejection fraction (HFpEF): PLAN: Plan Acute hypoxic respiratory failure secondary to acute on chronic heart failure with preserved ejection fraction secondary to pulmonary hypertension/DACIA/OHS -Mother reports 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 hypertension -We did have an extensive discussion with regards to overall treatment success for right heart failure and she does have a forest pathology associate professor with whom she has a follow-up in early March the follows for for this -I discussed with her at this time I think we need to have the goal of trying to sure things up and get her out of the hospital to that follow-up appointment -Family is agreeable to palliative care at discharge -Overnight pulse ox was done and patient does appear to be hypoxic at night with desaturations at times into the 60s and qualified for 4 L bleed into her CPAP at night--> we will arrange this at the time of discharge -Has lost 2 kg since admission -Highly suspect I's and O's are inaccurate -Patient declined lower extremity wraps due to comfort -Continue Bumex as ordered -Continue fluid and sodium restriction -Wean oxygen as able -Will continue to monitor and repeat ambulatory pulse ox tomorrow to assess for discharge appropriateness Leukocytosis -Appears to be chronic -Patient has no signs of infection Chronic thrombocytopenia -Platelet count is stable Chronic macrocytic anemia -Hemoglobin is stable Pulmonary hypertension-who group 3 -Treatment as above Hypothyroidism -Thyroid appears to be well-controlled -Continue home with levothyroxine Elevated troponin -Patient was recently admitted here with elevated troponin likely secondary to heart failure -Cardiac catheterization showed no obstructive disease -CTA of the chest was done and no PE was identified Asthma -Continue home inhalers as able per formulary DACIA -Continue home CPAP -Overnight pulse ox does demonstrate hypoxia so will have 4 L bleed to continue with nocturnally Prader-Willi syndrome -Continue outpatient follow-up for chronic issues related to this diagnosis Morbid obesity -BMI is 56.1 -Patient currently undergoing weight loss treatment regimen and plans to go on Wegovy soon -Follow-up upcoming as outpatient DVT prophylaxis -Continue subcu heparin 3 times daily CODE STATUS -Full code Charges/Coding Visit Charges Inpatient E&M: 62254 Subs Hosp L2
[2024-02-28] MEDS: Nystatin Powder 15gm Bottle 1 APPLIC TOPICAL (20:38)
[2024-02-28] MEDS: Ammonium Lactate 225 gm Bottle 1 APPLIC TOPICAL (20:38)
[2024-02-29] VITALS (8 sets, daily range): BP systolic 103–116; BP diastolic 74–84; PULSE 62–84; RESP 16–18; TEMP 36–36.9; O2SAT 83–99; BMI 56.2
[2024-02-29] MEDS: Levothyroxine 100 MCG Tablet PO (03:50)
[2024-02-29] MEDS: Heparin Injection (Vial) 5,000 UNIT/ML VIAL 5000 UNIT SC ×3 (05:09→21:18)
[2024-02-29 05:26] LABS: Anion Gap 1 (5-15); BUN 25 mg/dL (7-18); BUN/Creat Ratio 40.5 RATIO (10-20); Calcium,Total 8.4 mg/dL (8.5-10.1); Chloride 102 mmol/L (98-107); Creatinine, Serum 0.62 mg/dL (0.55-1.02); EST Glomerular Filtration Rate 113 mL/min (>60); Est Glom Filt Rate - Afr Amer 137 mL/min (>60); Estimated Creatinine Clearance 149.86 ml/min; Glucose 89 mg/dL (74-106); Potassium 4.2 mmol/L (3.5-5.1); Sodium Level 142 mmol/L (136-145)
[2024-02-29] MEDS: Fluticasone 0.05% 1 SPRAY NASAL.SRY NASAL (09:35)
[2024-02-29] MEDS: Bumetanide 1 MG/4 ML Vial 2 MG IV ×2 (09:35→18:21)
[2024-02-29] MEDS: Nystatin Powder 15gm Bottle 1 APPLIC TOPICAL ×2 (09:35→21:15)
[2024-02-29] MEDS: Omega-3 Acid Ethyl Esters 1 GM Capsule PO (09:35)
[2024-02-29] MEDS: 0.9% Saline Lock 10 ML Syringe IV (09:36)
[2024-02-29] MEDS: Carvedilol 3.125 MG TABLET PO ×2 (09:36→21:18)
[2024-02-29] MEDS: Magnesium Chloride 64 MG Delay Rel.Tablet 128 MG PO (09:36)
--- NOTE | 2024-02-29 14:20 | PN.HOSP_ITS ---
Reason for Visit Reason for Visit: Shortness of breath/hypoxia Subjective Subjective No issues overnight. Patient states she is feeling okay today. Busy playing [employer] on her phone today. No complaints. Did ambulate and only required 4 to 6 L with exertion and down to room air at rest now. Renal function remained stable despite diuresis. Objective Data Objective Data Vital Signs: Vital Signs Temp Pulse Resp BP Pulse Ox O2 Del Method O2 Flow Rate 98.5 F 69 16 103/76 99 Nasal Cannula 2 02/29/24 09:34 02/29/24 09:34 02/29/24 09:34 02/29/24 09:34 02/29/24 09:34 02/29/24 10:00 02/29/24 10:00 FiO2 21 02/28/24 01:47 Oxygen Flow Rate (L/min) 2 Oxygen Delivery Method Nasal Cannula Weight: 130.5 kg Body Mass Index (BMI) 56.2 Intake & Output: Intake and Output for Last 24 Hours 02/27/24 02/28/24 02/29/24 23:59 23:59 23:59 Intake Total 900 / 900 920 / 920 240 / 240 Output Total 800 / 800 200 / 200 900 / 900 Balance 100 / 100 720 / 720 -660 / -660 Lab / Micro Data 02/28/24 04:50 02/29/24 04:05 Labs: Laboratory Results - last 24 hr 02/29/24 04:05: Sodium 142, Potassium 4.2, Chloride 102, Carbon Dioxide 39.0 H, Anion Gap 1 L, BUN 25 H, Creatinine 0.62, Estim Creat Clear Calc 149.86, Est GFR (MDRD) Af Amer 137, Est GFR (MDRD) Non-Af 113, BUN/Creatinine Ratio 40.5 H, Glucose 89, Calcium 8.4 L, B-Natriuretic Peptide 312.0 H Physical Exam Const alert, oriented x3, no apparent distress and well nourished; Negative for average body habitus or healthy appearing Constitutional Narrative: Middle-aged, -Hungarian female, reclining in a chair, playing bingo on her phone and watching television, appears comfortable, nontoxic, currently on room air at rest HEENT head/scalp atraumatic and moist oral mucous membranes HEENT Narrative: Mallampati 4, no thrush Head and Scalp: normocephalic Resp normal respiratory effort, no retractions, no use of accessory muscles and clear to auscultation bilaterally Resp Narrative: Very distant due to body habitus but clear Auscultation: Negative for crackles, rhonchi or wheezes Cardio regular rate, regular rhythm, S1 normal heart sound, S2 normal heart sound, no murmurs, no rub, no gallops and no clicks Cardio Narrative: Distant GI normal to inspection, nondistended, normoactive bowel sounds, soft to palpation and non-tender GI Narrative: Large protuberant abdomen Extremity Extremity Narrative: 2+ bilateral lower extremity pedal edema-seems to be softer and then distal tibial areas Neuro oriented x3, moves all extremities and no focal motor deficits Psych Psych Narrative: Interacts appropriately, very pleasant Assessment & Plan Assessment/Plan (1) Flash pulmonary edema: (2) Acute on chronic hypoxic respiratory failure: (3) Acute on chronic heart failure with preserved ejection fraction (HFpEF): PLAN: Plan Acute hypoxic respiratory failure secondary to acute on chronic heart failure with preserved ejection fraction secondary to pulmonary hypertension/DACIA/OHS -Clinically seems to be improving -Mother reports 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 hypertension -We did have an extensive discussion with regards to overall treatment success for right heart failure and she does have a skills auditor with whom she has a follow-up in early March the follows for for this -I discussed with her at this time I think we need to have the goal of trying to sure things up and get her out of the hospital to that follow-up appointment -Family is agreeable to palliative care at discharge -Overnight pulse ox was done and patient does appear to be hypoxic at night with desaturations at times into the 60s and qualified for 4 L bleed into her CPAP at night--> we will arrange this at the time of discharge -Has lost 2 kg since admission -Highly suspect I's and O's are inaccurate -Patient declined lower extremity wraps due to comfort -Continue Bumex as ordered -Continue fluid and sodium restriction -Wean oxygen as able--> currently on room air at rest and required 4 L with exertion today -Reassess tomorrow -Will continue to monitor and repeat ambulatory pulse ox tomorrow to assess for discharge appropriateness Leukocytosis -Appears to be chronic -Patient has no signs of infection Chronic thrombocytopenia -Platelet count is stable Chronic macrocytic anemia -Hemoglobin is stable Pulmonary hypertension-who group 3 -Treatment as above Hypothyroidism -Thyroid appears to be well-controlled -Continue home with levothyroxine Elevated troponin -Patient was recently admitted here with elevated troponin likely secondary to heart failure -Cardiac catheterization showed no obstructive disease -CTA of the chest was done and no PE was identified Asthma -Continue home inhalers as able per formulary DACIA -Continue home CPAP -Overnight pulse ox does demonstrate hypoxia so will have 4 L bleed to continue with nocturnally Prader-Willi syndrome -Continue outpatient follow-up for chronic issues related to this diagnosis Morbid obesity -BMI is 56.2 -Patient currently undergoing weight loss treatment regimen and plans to go on Wegovy soon -Follow-up upcoming as outpatient DVT prophylaxis -Continue subcu heparin 3 times daily CODE STATUS -Full code Charges/Coding Visit Charges Inpatient E&M: 44185 Subs Hosp L2
[2024-02-29] MEDS: Acetaminophen 500 MG Tablet 1000 MG PO ×2 (16:04→21:17)
[2024-02-29] MEDS: Ammonium Lactate 225 gm Bottle 1 APPLIC TOPICAL (21:16)
[2024-03-01] VITALS (7 sets, daily range): BP systolic 106–126; BP diastolic 63–90; PULSE 63–75; RESP 14–22; TEMP 36.3–36.6; O2SAT 88–100; BMI 56.2
--- NOTE | 2024-03-01 06:58 | CT_ITS ---
STUDY: CT BRAIN WITHOUT CONTRAST REASON FOR EXAM: Female, 43 years old. 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 Individualized dose optimization techniques were used for this CT. COMPARISON: 12/09/2012 FINDINGS: Normal soft tissue structures. Normal calvarium. Normal size ventricles and extra-axial spaces for the patient''s age. Normal white matter tracts of the cerebral hemispheres. Normal basal ganglia and thalami. Normal brainstem. Normal cerebellum. There is no intracranial hemorrhage. There are no findings of an acute ischemic infarction. Normal visualized paranasal sinuses. CT/Brain/Head without Contrast IMPRESSION: Normal unenhanced CT scan of the brain. Electronically Signed: Mk Almazan MD at 13:44 EST ,
[2024-03-01 07:02] LABS: Blood Gas Specimen Type VEN; O2 Delivery Device Not entered; SITE Not entered; VBG BASE EXCESS 11 mmol/L (-1.0-3.5); VBG Bicarbonate 37 mmol/L (22-26); VBG PO2 159 mmHg (25-40); VBG SO2 99 % (50-70); VBG TCO2 39 mmol/L (23-33); VBG pCO2 65.5 mmHg (41-51); VBG pH 7.35 (7.32-7.42)
--- NOTE | 2024-03-01 07:06 | PN_ITS ---
Progress Note MANGANESE WHEELER called at 0604 for unresponsiveness. No focal findings and her pupils were equal and reactive. She was trying to close her eyes against me but she would not respond to verbal or physical stimuli. VSS and lab work appears to be baseline. An abg could not be obtained so a VBG was done with a pH of 7.354, CT of the brain is ordered.
[2024-03-01 07:23] LABS: Bedside Glucose 91 mg/dL (74-106)
[2024-03-01 07:38] LABS: Anion Gap 1 (5-15); BUN 26 mg/dL (7-18); BUN/Creat Ratio 39.1 RATIO (10-20); Calcium,Total 8.6 mg/dL (8.5-10.1); Chloride 100 mmol/L (98-107); Creatinine, Serum 0.66 mg/dL (0.55-1.02); EST Glomerular Filtration Rate 104 mL/min (>60); Est Glom Filt Rate - Afr Amer 125 mL/min (>60); Estimated Creatinine Clearance 140.85 ml/min; Glucose 85 mg/dL (74-106); Magnesium 2.3 mg/dL (1.6-2.6); Phosphorus 3.6 mg/dL (2.5-4.9); Potassium 4.6 mmol/L (3.5-5.1); Sodium Level 138 mmol/L (136-145)
[2024-03-01] MEDS: Bumetanide 1 MG/4 ML Vial 2 MG IV (10:28)
[2024-03-01] MEDS: Carvedilol 3.125 MG TABLET PO (10:28)
[2024-03-01] MEDS: Fluticasone 0.05% 1 SPRAY NASAL.SRY NASAL (10:28)
[2024-03-01] MEDS: Omega-3 Acid Ethyl Esters 1 GM Capsule PO (10:28)
[2024-03-01] MEDS: Magnesium Chloride 64 MG Delay Rel.Tablet 128 MG PO (10:28)
[2024-03-01] MEDS: Nystatin Powder 15gm Bottle 1 APPLIC TOPICAL (10:29)
--- NOTE | 2024-03-01 11:21 | CASEMGMT ---
Patient is ready for discharge back to the alf. KE called Rafia ORTEGA with alf and notified her of patient's d/c today. KE told Rafia that patient will need 2L of O2 with ambulation and 4L bleed in to cpap at night. KE told Rafia that KE will notify her when the instructions are in the computer. Ruby Laughlin CLINICAL RESEARCH TECH ASHVIN
--- NOTE | 2024-03-01 13:53 | PCM.DC.SUM ---
Providers Date of Admission: 02/28/24 Date of Discharge: 03/01/24 Primary Care Physician: Dr. Marilee Pérez MD Reason For Visit: PULM EDEMA Diagnosis Discharge Diagnosis (1) Flash pulmonary edema: Status: Acute Code(s): J81.0 - Acute pulmonary edema (2) Acute on chronic hypoxic respiratory failure: Status: Chronic Code(s): J96.21 - Acute and chronic respiratory failure with hypoxia (3) Acute on chronic heart failure with preserved ejection fraction (HFpEF): Status: Acute Code(s): I50.33 - Acute on chronic diastolic (congestive) heart failure Medications at Discharge Home Medications ammonium lactate 12 % topical cream 1 applicatio topical DAILY skin 10/26/13 nystatin 100,000 unit/gram topical powder 1 applic topical BID rash 06/01/16 clotrimazole 1 % topical cream 1 applic topical BID skin 04/08/17 fluticasone propionate 50 mcg/actuation nasal spray,suspension 1 spray intranasal DAILY breathing 04/08/17 norethindrone (contraceptive) 0.35 mg tablet (Arianna) 0.35 mg PO QDAY #84 tabs 06/02/23 levothyroxine 100 mcg tablet 100 mcg PO DAILY thyroid 12/26/23 mometasone-formoterol HFA 100 mcg-5 mcg/actuation aerosol inhaler (Dulera) 2 inh inhalation BID breathing 12/26/23 multivitamin-ferrous fumarate-folic acid 18 mg-400 mcg tablet (A Thru Z Advanced Formula) 1 tab PO DAILY vitamin 12/26/23 carvedilol 3.125 mg tablet 3.125 mg PO BID heart health #60 tabs 01/02/24 magnesium oxide 400 mg (241.3 mg magnesium) tablet 400 mg PO DAILY supplement 02/17/24 omega-3 fatty acids 1,000 mg capsule 1,000 mg PO DAILY supplement 02/17/24 oxycodone 5 mg tablet 5 mg PO Q6H PRN PRN Pain Score 4-5 5 days #20 tabs 02/26/24 bumetanide 1 mg tablet 1 mg PO BID #60 tabs 03/01/24 Hospital Course Operations None Procedures - (CT brain) Summary of Care Provided Minutes Spent on Discharge: 39 Hospital Course: Ms. Ortiz is a 43-year-old white female who was discharged yesterday if she was mated for chest pain and had a negative workup with a cardiac catheterization and CT of the chest. She also complained of bilateral shoulder pain and had negative x-rays. Shoulder pain was thought to be musculoskeletal. 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 Most recent echo was done on 02/25/2024 and showed a normal EF however her right ventricular systolic pressures were elevated at 66 mmHg. Echo prior to this done at this institution was in December 2023 and results were similar. At baseline she is on torsemide 20 mg daily and wears CPAP. She follows with a congenital power cutting machine operator for her Prader-Willi syndrome and [place] and she states she has an upcoming appointment with him in early March. Hypovolemia has been significantly problematic for her as of recently. At the time of discharge yesterday she was lying flat on her back satting 96% on room air without any difficulty. Patient states she got home and through the night had to get up to go to the bathroom. She got up and came back to bed and placed her CPAP and felt like she was smothered and had discomfort in her chest although she had trouble describing exactly what she was sensing. She got more short of breath and they checked her oxygen saturation and she was 79% on room air. Given these findings, they sent her to the emergency department at [facility] and she was subsequently transferred here. BNP was markedly elevated [facility] at 13,000. Since admission she was placed on Bumex 1 mg IV twice daily and maintained on supplemental oxygen however requirements have been flow from room air to 2 L. She did have a recent CTA of her chest on 02/24/2024 that showed no PE, groundglass changes consistent with CHF, cardiomegaly especially noted enlargement of the RA and enlargement of the central pulmonary arteries. Will restrict her fluid intake to 1500 cc daily and salt intake to 2 g daily. Monitor I's and O's and daily weights. It sounds like this was almost flash pulmonary edema since she was doing well when she left here. Will try to wean oxygen with possible discharge home tomorrow depending on functional status. The patient has had frequent admissions and lives in a custodial. We do feel that it may be beneficial for her to obtain a hospital bed in the custodial environment as she is needing frequent changes in position to alleviate her respiratory symptoms, her head of bed needs to be elevated at 30 degrees at night due to respiratory status and in a regular bed it has been difficult to keep her in this position. This all is not feasible in a regular bed. She was diuresed during her hospitalization with Bumex due to a slightly lower albumin level rather than torsemide. Response was good. Her respiratory status slowly improved. At 1 point she was requiring 15 L with exertion. At the time of discharge we were able to wean her to 2 L with exertion. She does have chronic edema in her lower extremities due to her chronic pulmonary hypertension however her legs did soften up and seems to be a little bit less edematous at the time of discharge. Early on the a.m. of 03/01/2024 she had a change in mental status where she was difficult to arouse. ABG was obtained and was normal. Ammonia level was found to be slightly elevated but not contributory. CT of the brain was unremarkable. About an hour later she was awake and states this has happened previously and it occurs when she is in a deep sleep. Given the fact that this is something that happened to her previously we did not feel we need to monitor any further. Clinically she was stable for discharge at that time from a respiratory standpoint. Ambulatory pulse oximetry was performed and she was found not to require any oxygen at rest and 2 L with exertion. I have reviewed the oxygen testing, and this patient qualifies for the home equipment and portability. The patient is mobile in the home and the community. Oxygen was arranged for her by case management prior to discharge. We requested that she follow-up with strict fluid restriction to 1500 cc daily with sodium restriction at 3 g or less daily. The custodial is to weigh her on a daily basis and if she gains more than 2 pounds in a 24-hour period she will acquire an extra dose of Bumex. She has a follow-up appointment with her power cutting machine operator over in [place] upcoming in mid March. We did qualify her for nocturnal oxygen via bleed through her CPAP with overnight pulse oximeter on her CPAP without oxygen bleed. Her sats frequently dropped into the 60s and she qualified for 4 L of oxygen while sleeping. This too was supplied for her and arranged by case management prior to discharge. I did impress upon she and her mother the importance of following up with her power cutting machine operator at the upcoming appointment. I have asked her to follow-up with her primary care physician within the next 1 week. 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 Leukocytosis Chronic thrombocytopenia Chronic microcytic anemia Recent troponin elevation Hypothyroidism Asthma Prader-Willi syndrome Morbid obesity Physical Exam Const alert, oriented x3, no apparent distress and well nourished; Negative for average body habitus, no limitations or healthy appearing Constitutional Narrative: Middle-aged, -Martiniquais female, reclining in a chair, playing bingo on her phone and watching television, appears comfortable, nontoxic, currently on room air at rest, nursing at bedside General Appearance: cooperative, comfortable and well kempt Nutritional Appearance: morbidly obese HEENT normocephalic, head/scalp atraumatic, hearing grossly normal bilaterally and moist oral mucous membranes HEENT Narrative: Mallampati 4, no thrush Eyes EOMs intact bilaterally Eyes Narrative: No scleral icterus Neck no lymphadenopathy and supple Neck Narrative: Trachea midline, no thyroid enlargement Resp normal respiratory effort, no retractions, no use of accessory muscles and clear to auscultation bilaterally Resp Narrative: Very distant due to body habitus but clear Auscultation: Negative for crackles, rhonchi or wheezes Cardio regular rate, regular rhythm, S1 normal heart sound, S2 normal heart sound, no murmurs, no rub, no gallops and no clicks Cardio Narrative: Distant GI normal to inspection, nondistended, normoactive bowel sounds, soft to palpation and non-tender GI Narrative: Large protuberant abdomen Extremity Extremity Narrative: 2+ bilateral lower extremity pedal edema-seems to be softer and then distal tibial areas, no cyanosis or clubbing Skin no rashes or lesions noted, no wounds, skin turgor normal and no jaundice Neuro oriented x3, moves all extremities and no focal motor deficits Neuro Narrative: Speech is intelligible but response time is a bit delayed and slow Psych Psych Narrative: Interacts appropriately, very pleasant Weight / BMI Weight Weight: 130.6 kg Body Mass Index (BMI) 56.2 ABG / Lab / Microbiology Data 02/28/24 04:50 03/01/24 06:40 Laboratory: Laboratory Results - last 24 hr 03/01/24 06:03: POC Glucose 91 03/01/24 06:40: Sodium 138, Potassium 4.6, Chloride 100, Carbon Dioxide 38.0 H, Anion Gap 1 L, BUN 26 H, Creatinine 0.66, Estim Creat Clear Calc 140.85, Est GFR (MDRD) Af Amer 125, Est GFR (MDRD) Non-Af 104, BUN/Creatinine Ratio 39.1 H, Glucose 85, Calcium 8.6, Phosphorus 3.6, Magnesium 2.3 03/01/24 07:58: Ammonia 35.0 H ABG: ABG 03/01/24 06:58 Specimen Type KIMBERLY Sample Site Not entered VBG pH 7.35 VBG pO2 159 H VBG HCO3 37 H VBG Total CO2 39 H VBG O2 Sat (Calc) 99 H VBG Base Excess 11 H POC Mix VBG pCO2 Pt Tmp 65.5 H O2 Delivery Device Not entered Radiography Diagnostic Testing: Radiology Impression Brain CT 03/01/24 06:58 IMPRESSION: Normal unenhanced CT scan of the brain. Electronically Signed: Mk Almazan MD at 13:44 EST , D/C Instructions Discharge Diet: Low fat / Low cholesterol (3 g or less of salt daily/limit fluid to 1.5 L or less total daily) Discharge Activity: Return to Normal Activity DC O2, CPAP, BIPAP Needs RN Home O2 Qualification: Home O2 Qualification: Is the patient on home oxygen No 03/01/24 09:52 Home O2 Qualification: AT REST 1- Pulse Ox at rest 91 03/01/24 09:52 2- Pulse Ox at rest 93 02/28/24 13:49 2- Oxygen Flow Rate at rest 2 02/28/24 13:49 Home O2 Qualification: WITH AMBULATION 1- Pulse Ox with ambulation 88 03/01/24 09:52 1- Oxygen Flow Rate with 0 03/01/24 09:52 ambulation 2- Pulse Ox with ambulation 91 03/01/24 09:52 2- Oxygen Flow Rate with 2 03/01/24 09:52 ambulation 3- Pulse Ox with ambulation 88 02/29/24 11:29 3- Oxygen Flow Rate with 4 02/29/24 11:29 ambulation 4- Pulse Ox with ambulation 92 02/29/24 11:29 4- Oxygen Flow Rate with 6 02/29/24 11:29 ambulation 4- Stopped test - Unable to No 02/29/24 11:29 obtain pulse ox >89% w/ max oxyg PSN CPAP & BiPAP: BiPAP & CPAP Settings per PSN Mode CPAP 03/01/24 03:40 Bipap Delivery Device Face Mask 03/01/24 03:40 BiPAP Expiratory Pressure 8 03/01/24 03:40 Fraction of Inspired Oxygen ( 21 02/28/24 01:47 FIO2) Total Flow Rate 3 03/01/24 03:40 Home O2 Discharge instructions: Yes Type of respiratory needs?: Oxygen Oxygen frequency: With Ambulation Oxygen liters per minute during Ambulation: 2 and CPAP CPAP oxygen liters per minute: 4 CPAP instructions: wear nightly and prn with naps DC home with Oxygen: Yes Home O2 MD Review: I have reviewed the oxygen testing, and the patient qualifies for home oxygen equipment and portability. The patient is mobile in the home and the community. Meaningful Use Info Meaningful Use Meaningful Use Diagnoses (Choose all that apply): None applicable Ischemic Stroke Statin Dosing Therapy Reference: STATIN DOSE THERAPY REFERENCE: * Patients > 75 years receive moderate or high dose statin therapy. * Patients 75 years or YOUNGER should receive HIGH intensity statin dose unless contraindicated. You will be required to document reason for non-treatment if statin daily dose does not meet guidelines. HIGH DOSE STATIN THERAPY DAILY Atorvastatin > than or = to 40 mg Rosuvastatin > than or = to 20 mg Amlodipine + Atorvastatin > than or = to 2.5/40 mg Ezetimibe + Simvastatin 10/80 mg Simvastatin 80mg Discharge Plan Admission Admit Date/Time: 02/28/24 14:57 Primary Reason for Your Visit: Shortness of Breath Attending Provider: Magnolia Cullen Primary Care Provider: Marilee Pérez Consulting Providers: Leon Arias Instructions Additional Instructions / Restrictions: 1. Continue nocturnal CPAP with a 4 L bleed of Oxygen at night 2. Please wear 2 L of oxygen while walking or exerting yourself 3. Please weigh the patient daily in the morning without clothes on and if she gains more than 2 to 3 pounds in a 24-hour. Please take an extra dose of bumex that day and reevaluate the next day. Her fluid restriction to 1.5 L needs to be evaluated closely as does her sodium restriction of 3 g of salt daily or less. If not she will go back into heart failure and end up in the hospital again. 4. Please follow-up with your power cutting machine operator as scheduled for mid March 14. Please obtain a basic metabolic profile to be done on 03/05/2024 to recheck kidney function and electrolytes with ongoing Bumex use and dose changes of diuretics. Discharge Orders/Prescriptions Prescriptions: New bumetanide 1 mg tablet 1 mg PO BID Qty: 60 1RF Continued fluticasone propionate 50 mcg/actuation spray,suspension 1 spray INTRANASAL DAILY clotrimazole 1 % cream 1 applic TOPICAL BID norethindrone (contraceptive) [Arianna] 0.35 mg tablet 0.35 mg PO QDAY Qty: 84 4RF ammonium lactate 140 GM cream 1 applicatio TOPICAL DAILY Patient Comments: skin health nystatin 1 APPLIC bottle 1 applic TOPICAL BID magnesium oxide 400 mg (241.3 mg magnesium) tablet 400 mg PO DAILY omega-3 fatty acids 1,000 mg capsule 1,000 mg PO DAILY A Thru Z Advanced Formula 18-400 mg-mcg tablet 1 tab PO DAILY Dulera 100-5 mcg/actuation HFA aerosol inhaler 2 inh inhalation BID levothyroxine 100 mcg tablet 100 mcg PO DAILY carvedilol 3.125 mg Tablet 3.125 mg PO BID Qty: 60 0RF oxycodone 5 mg Tablet 5 mg PO Q6H PRN PRN (Reason: Pain Score 4-5) 5 Days Qty: 20 0RF Discontinued torsemide 20 mg tablet 20 mg PO DAILY Qty: 30 0RF Referrals / Follow Up: Marilee Pérez MD [Primary Care Provider] - Within 1 Week Disposition Disposition (needs filled in before D/C Order can be placed): Home Health Service Charges/Coding Visit Charges Inpatient E&M: 16109 Disch Hosp >30min
--- NOTE | 2024-03-01 14:13 | CASEMGMT ---
RN SOMMER updated that patient qualifies for home oxygen. RODRÍGUEZ NOVOA received script for home oxygen and sent to [facility] via [facility], portable tank arranged for delivery to patient room.
--- NOTE | 2024-03-01 15:29 | CASEMGMT ---
KE faxed d/c instructions to the prison, Jesica Morfin at [facility], and [facility]. KE called patient's mom Deanne and left her a voice mail letting her know patient will be discharged today. KE also called Jesica Morfin patient's service technician and left her a voice mail notifying her of patient's discharge. KE called Rafia at the prison and let her know. Rafia said patient will need a prescription for the Bumex PRN with weight gain of 2lbs or 3lbs. Script cannot say 2 or 3 it needs to say one or the other. This was relayed to the physician. Ruby Laughlin APPLICATIONS SUPPORT ENGINEER ASHVIN
--- NOTE | 2024-03-23 11:23 | DS.PCM_ITS ---
Providers Date of Admission: 02/28/24 Primary Care Physician: Dr. Marilee Pérez MD Reason For Visit: PULM EDEMA Diagnosis Discharge Diagnosis (1) Flash pulmonary edema: Status: Resolved Code(s): J81.0 - Acute pulmonary edema (2) Acute on chronic hypoxic respiratory failure: Status: Resolved Code(s): J96.21 - Acute and chronic respiratory failure with hypoxia (3) Acute on chronic heart failure with preserved ejection fraction (HFpEF): Status: Resolved Code(s): I50.33 - Acute on chronic diastolic (congestive) heart failure Medications at Discharge Home Medications ammonium lactate 12 % topical cream 1 applicatio topical DAILY skin 10/26/13 nystatin 100,000 unit/gram topical powder 1 applic topical BID rash 06/01/16 clotrimazole 1 % topical cream 1 applic topical BID skin 04/08/17 fluticasone propionate 50 mcg/actuation nasal spray,suspension 1 spray intranasal DAILY breathing 04/08/17 norethindrone (contraceptive) 0.35 mg tablet (Arianna) 0.35 mg PO QDAY control #84 tabs 06/02/23 levothyroxine 100 mcg tablet 100 mcg PO DAILY thyroid 12/26/23 mometasone-formoterol HFA 100 mcg-5 mcg/actuation aerosol inhaler (Dulera) 2 inh inhalation BID breathing 12/26/23 multivitamin-ferrous fumarate-folic acid 18 mg-400 mcg tablet (A Thru Z Advanced Formula) 1 tab PO DAILY vitamin 12/26/23 carvedilol 3.125 mg tablet 3.125 mg PO BID heart health #60 tabs 01/02/24 magnesium oxide 400 mg (241.3 mg magnesium) tablet 400 mg PO DAILY supplement 02/17/24 omega-3 fatty acids 1,000 mg capsule 1,000 mg PO DAILY supplement 02/17/24 oxycodone 5 mg tablet 5 mg PO Q6H PRN PRN Pain Score 4-5 5 days #20 tabs 02/26/24 bumetanide 1 mg tablet 1 mg PO BID #60 tabs 03/01/24 bumetanide 1 mg tablet 1 mg PO DAILY PRN weight gain #30 tabs 03/01/24 Weight / BMI Weight Weight: 130.6 kg Body Mass Index (BMI) 56.2 ABG / Lab / Microbiology Data 02/28/24 04:50 03/01/24 06:40 D/C Instructions Discharge Diet: Low fat / Low cholesterol (3 g or less of salt daily/limit fluid to 1.5 L or less total daily) DC O2, CPAP, BIPAP Needs RN Home O2 Qualification: Home O2 Qualification: Is the patient on home oxygen No 03/01/24 09:52 Home O2 Qualification: AT REST 1- Pulse Ox at rest 91 03/01/24 09:52 2- Pulse Ox at rest 93 02/28/24 13:49 2- Oxygen Flow Rate at rest 2 02/28/24 13:49 Home O2 Qualification: WITH AMBULATION 1- Pulse Ox with ambulation 88 03/01/24 09:52 1- Oxygen Flow Rate with 0 03/01/24 09:52 ambulation 2- Pulse Ox with ambulation 91 03/01/24 09:52 2- Oxygen Flow Rate with 2 03/01/24 09:52 ambulation 3- Pulse Ox with ambulation 88 02/29/24 11:29 3- Oxygen Flow Rate with 4 02/29/24 11:29 ambulation 4- Pulse Ox with ambulation 92 02/29/24 11:29 4- Oxygen Flow Rate with 6 02/29/24 11:29 ambulation 4- Stopped test - Unable to No 02/29/24 11:29 obtain pulse ox >89% w/ max oxyg PSN CPAP & BiPAP: BiPAP & CPAP Settings per PSN Mode CPAP 03/01/24 03:40 Bipap Delivery Device Face Mask 03/01/24 03:40 BiPAP Expiratory Pressure 8 03/01/24 03:40 Fraction of Inspired Oxygen ( 21 02/28/24 01:47 FIO2) Total Flow Rate 3 03/01/24 03:40 Home O2 Discharge instructions: Yes Type of respiratory needs?: Oxygen Oxygen frequency: With Ambulation Oxygen liters per minute during Ambulation: 2 and CPAP CPAP oxygen liters per minute: 4 CPAP instructions: wear nightly and prn with naps DC home with Oxygen: Yes Home O2 MD Review: I have reviewed the oxygen testing, and the patient qualifies for home oxygen equipment and portability. The patient is mobile in the home and the community. Meaningful Use Info Ischemic Stroke Statin Dosing Therapy Reference: STATIN DOSE THERAPY REFERENCE: * Patients > 75 years receive moderate or high dose statin therapy. * Patients 75 years or YOUNGER should receive HIGH intensity statin dose unless contraindicated. You will be required to document reason for non-treatment if statin daily dose does not meet guidelines. HIGH DOSE STATIN THERAPY DAILY Atorvastatin > than or = to 40 mg Rosuvastatin > than or = to 20 mg Amlodipine + Atorvastatin > than or = to 2.5/40 mg Ezetimibe + Simvastatin 10/80 mg Simvastatin 80mg Discharge Plan Admission Admit Date/Time: 02/28/24 14:57 Primary Reason for Your Visit: Shortness of Breath Attending Provider: Magnolia Cullen Primary Care Provider: Marilee Pérez Consulting Providers: Leon Arias Instructions Additional Instructions / Restrictions: 1. Continue nocturnal CPAP with a 4 L bleed of Oxygen at night 2. Please wear 2 L of oxygen while walking or exerting yourself 3. Please weigh the patient daily in the morning without clothes on and if she gains more than 2 pounds in a 24-hour. Please take an extra dose of bumex that day and reevaluate the next day. Her fluid restriction to 1.5 L needs to be evaluated closely as does her sodium restriction of 3 g of salt daily or less. If not she will go back into heart failure and end up in the hospital again. 4. Please follow-up with your restaurant front manager as scheduled for mid March 14. Please obtain a basic metabolic profile to be done on 03/05/2024 to recheck kidney function and electrolytes with ongoing Bumex use and dose changes of diuretics. Discharge Orders/Prescriptions Prescriptions: New bumetanide 1 mg tablet 1 mg PO BID Qty: 60 1RF bumetanide 1 mg tablet 1 mg PO DAILY PRN (Reason: weight gain) Qty: 30 0RF Rx Instructions: Please take 1 dose for weightbearing greater than 2 pounds in a 24-hour period Continued fluticasone propionate 50 mcg/actuation spray,suspension 1 spray INTRANASAL DAILY clotrimazole 1 % cream 1 applic TOPICAL BID norethindrone (contraceptive) [Arianna] 0.35 mg tablet 0.35 mg PO QDAY Qty: 84 4RF ammonium lactate 140 GM cream 1 applicatio TOPICAL DAILY Patient Comments: skin health nystatin 1 APPLIC bottle 1 applic TOPICAL BID magnesium oxide 400 mg (241.3 mg magnesium) tablet 400 mg PO DAILY omega-3 fatty acids 1,000 mg capsule 1,000 mg PO DAILY A Thru Z Advanced Formula 18-400 mg-mcg tablet 1 tab PO DAILY Dulera 100-5 mcg/actuation HFA aerosol inhaler 2 inh inhalation BID levothyroxine 100 mcg tablet 100 mcg PO DAILY carvedilol 3.125 mg Tablet 3.125 mg PO BID Qty: 60 0RF oxycodone 5 mg Tablet 5 mg PO Q6H PRN PRN (Reason: Pain Score 4-5) 5 Days Qty: 20 0RF Discontinued torsemide 20 mg tablet 20 mg PO DAILY Qty: 30 0RF Referrals / Follow Up: Marilee Pérez MD [Primary Care Provider] - Within 1 Week Disposition Disposition (needs filled in before D/C Order can be placed): Home Health Service
--- NOTE | 2024-04-08 14:50 | CASEMGMT ---
SW received a phone call from [facility]. They have been unable to reach anyone to discuss Palliative Care. Confirmed phone numbers. SW said patient's mom is her guardian. Palliative Care has tried calling her numerous times and left messages with no return call. They called patient's PCP's office and they suggested Palliative [facility]. SW told Palliative that SW will put a note in chart that they have tried to reach patient's mom with no luck. Ruby Laughlin PROFESSOR OF VEGETABLE SCIENCE ASHVIN
== END 2024-03-01 16:29 | disposition home health service (06) | DRG 291 ==
PROVIDERS: Admitting Provider Internal Medicine; PCP Internal Medicine; Visit Provider Internal Medicine
DX: I11.0 Hypertensive heart disease with heart failure (principal); J81.0 Acute pulmonary edema; J96.01 Acute respiratory failure with hypoxia; I50.33 Acute on chronic diastolic (congestive) heart failure; E66.2 Morbid (severe) obesity with alveolar hypoventilation; Z68.43 Body mass index [BMI] 50.0-59.9, adult; Q87.11 Prader-Willi syndrome; D69.6 Thrombocytopenia, unspecified; I27.23 Pulmonary hypertension due to lung diseases and hypoxia; J44.9 Chronic obstructive pulmonary disease, unspecified; E03.9 Hypothyroidism, unspecified; D50.9 Iron deficiency anemia, unspecified; I25.10 Atherosclerotic heart disease of native coronary artery without angina pectoris; I50.812 Chronic right heart failure; Z95.5 Presence of coronary angioplasty implant and graft; Z79.01 Long term (current) use of anticoagulants; Z79.51 Long term (current) use of inhaled steroids; Z79.890 Hormone replacement therapy; Z79.899 Other long term (current) drug therapy
CPT/HCPCS: 36415; 70450; 80048; 82140; 82803; 82962; 83735; 83880; 84100; 85027; 94660; 94762; 97116; 97162; 97166; 97530; A4216

== ENCOUNTER 2024-04-28 16:43 | Inpatient (IN) | payer MEDICARE, MEDICAID, SELFPAY ==
[2024-04-28] VITALS (32 sets, daily range): BP systolic 81–121; BP diastolic 57–94; PULSE 56–88; RESP 0–27; TEMP 36.5–37.3; O2SAT 12–100; BMI 60.0
--- NOTE | 2024-04-28 17:26 | ED.VIS.DYS ---
HPI History of Present Illness Chief Complaint: Shortness of Breath Informant: patient Onset/Context/Timing Onset: Yesterday Context: gradual Timing: Continuous Quality: Positive for Dyspnea on exertion and Orthopnea Worsened by: Exertion and Lying flat Relieved by: Nothing Associated Symptoms Negative for cough, rhinorrhea, post nasal drip, ear pain, fever, sore throat, chills, sweats, clear sputum, white sputum, yellow sputum or green sputum Chest Pain: Positive for None Narrative Narrative: Patient presents with shortness of breath and fluid retention that has been getting worse since yesterday. Patient is on torsemide 40 mg twice daily. Patient has been compliant with her medications. Patient admits to some recent weight gain. Patient states her breathing is worse when she lays flat and when she walks anywhere. Patient denies any cough. Patient denies any fevers or chills. Patient denies any sore throat or rhinorrhea. Patient denies any chest pain. PE Risk Factors: Negative for Cancer, OCP + Smoking + > 35, Prior DVT or PE, Recent immobilization, Recent surgery or Recent travel Prior similar symptoms: Yes PFSH PFS Medical History Prader-Willi syndrome Kidney disease Irregular heart beat Hypothyroidism Non-smoker CPAP (continuous positive airway pressure) dependence Asthma Chest pain DVT (deep venous thrombosis) (HFpEF) heart failure with preserved ejection fraction HTN (hypertension) DACIA treated with BiPAP Morbid obesity with body mass index (BMI) greater than or equal to 50 Menorrhagia with regular cycle Cystocele with incomplete uterovaginal prolapse Prader-Willi syndrome Enlarged RV (right ventricle) COPD (chronic obstructive pulmonary disease) Hypothyroidism Prader-Willi syndrome Morbid obesity with BMI of 40.0-44.9, adult Sleep apnea Home Medications ?Medication ?Instructions ?Recorded ?Last Taken ?Type ammonium lactate 12 % topical cream 1 applicatio topical DAILY skin 10/26/13 12/26/23 History nystatin 100,000 unit/gram topical 1 applic topical BID rash 06/01/16 12/26/23 History powder clotrimazole 1 % topical cream 1 applic topical BID skin 04/08/17 12/26/23 History fluticasone propionate 50 1 spray intranasal DAILY breathing 04/08/17 12/26/23 History mcg/actuation nasal spray,suspension norethindrone (contraceptive) 0.35 0.35 mg PO QDAY control #84 06/02/23 12/26/23 Rx mg tablet (Arianna) tabs levothyroxine 100 mcg tablet 100 mcg PO DAILY thyroid 12/26/23 12/26/23 History mometasone-formoterol HFA 100 2 inh inhalation BID breathing 12/26/23 12/26/23 History mcg-5 mcg/actuation aerosol inhaler (Dulera) multivitamin-ferrous 1 tab PO DAILY vitamin 12/26/23 12/26/23 History fumarate-folic acid 18 mg-400 mcg tablet (A Thru Z Advanced Formula) carvedilol 3.125 mg tablet 3.125 mg PO BID heart health #60 01/02/24 Unknown Rx tabs omega-3 fatty acids 1,000 mg 1,000 mg PO DAILY supplement 02/17/24 Unknown History capsule bumetanide 1 mg tablet 1 mg PO BID #60 tabs 03/01/24 Unknown Rx bumetanide 1 mg tablet 1 mg PO DAILY PRN weight gain #30 03/01/24 Unknown Rx tabs aspirin 81 mg chewable tablet 1 tab PO DAILY 04/28/24 Unknown History calcium carbonate (Oyster Shell 500 mg PO BID 04/28/24 Unknown History Calcium) epinephrine 0.3 mg/0.3 mL 0.3 mg IM DAILY PRN anaphylaxis 04/28/24 Unknown History injection, auto-injector fluticasone furoate 100 1 inh inhalation DAILY 04/28/24 Unknown History mcg-vilanterol 25 mcg/dose inhalation powder (Breo Ellipta) multivitamin-ferrous 1 tab PO DAILY 04/28/24 Unknown History fumarate-folic acid 18 mg-400 mcg tablet (Certavite-Antioxidant) torsemide 10 mg tablet 20 mg PO BID 04/28/24 Unknown History Allergy/AdvReac Type Severity Reaction Status Date / Time insect venom (insect bites) Allergy Intermediate Itching Verified 04/28/24 16:43 phenytoin sodium (From Allergy Unknown Verified 04/28/24 16:43 Dilantin) phenytoin sodium extended Allergy Unknown Verified 04/28/24 16:43 (From Dilantin) venom-honey bee (bee venom Allergy Unknown Verified 04/28/24 16:43 (honey bee)) Family History Grandmother Diabetes Heart disease Hypertension Mother Diabetes Grandfather Hypertension Father No problems noted. Surgical History History of coronary artery stent placement History of tonsillectomy and adenoidectomy Social History household members: none housing: other details: longterm. Smoking Status: Never smoker alcohol intake: never substance use type: does not use caffeine: Yes frequency: daily seatbelt use: always do you feel safe at home: Yes additional social history: Louis Gimenez ROS ROS ED Constitutional Constitutional ED: Denies chills or fever(s) Eyes Eyes: Denies blurry vision or change in vision ENT ENT ED: Denies rhinorrhea or sore throat Cardiovascular Cardiovascular: Denies chest pain or palpitations Respiratory/Chest Respiratory/Chest: Reports dyspnea; Denies cough Gastrointestinal Gastrointestinal: Denies nausea or vomiting Genitourinary Genitourinary ED: Reports hematuria; Denies dysuria Musculoskeletal Musculoskeletal: Denies back pain or neck pain Integumentary Denies abscess or rash Neurologic Neurologic: Denies headache(s) or weakness Allergic/Immunologic Allergic/Immunologic ED: Denies mouth swelling or urticaria EXAM Physical Exam Const Vital Signs: 04/28/24 16:45 04/28/24 16:45 04/28/24 16:52 Temperature 97.9 F 97.9 F Temperature Source Temporal Temporal Pulse Rate 66 66 Respiratory Rate 22 H 22 H Respiratory Effort Respiratory Depth Respiratory Pattern Blood Pressure 121/81 H 121/81 H Blood Pressure Mean 94 94 Pulse Ox 82 97 97 Oxygen Delivery Method Nasal Cannula Nasal Cannula Nasal Cannula Oxygen Flow Rate (L/min) 2 3 3 04/28/24 17:52 04/28/24 18:05 04/28/24 18:05 Temperature 97.7 F L Temperature Source Oral Pulse Rate 69 Respiratory Rate 16 17 Respiratory Effort Respiratory Depth Respiratory Pattern Blood Pressure 106/76 Blood Pressure Mean 86 Pulse Ox 98 98 Oxygen Delivery Method Nasal Cannula Nasal Cannula Nasal Cannula Oxygen Flow Rate (L/min) 2 2 2 04/28/24 18:35 04/28/24 19:00 04/28/24 20:00 Temperature 98.9 F 98.1 F Temperature Source Oral Oral Pulse Rate 75 60 Respiratory Rate 16 16 Respiratory Effort Short of Breath Respiratory Depth Normal Respiratory Pattern Tachypnea Blood Pressure 111/90 H 108/94 H Blood Pressure Mean 97 98 Pulse Ox 94 98 Oxygen Delivery Method Nasal Cannula Nasal Cannula Nasal Cannula Oxygen Flow Rate (L/min) 2 2 2 04/28/24 21:00 04/28/24 21:32 04/28/24 22:00 Temperature 98 F 99.1 F Temperature Source Temporal Oral Pulse Rate 56 L 88 Respiratory Rate 14 17 Respiratory Effort Respiratory Depth Respiratory Pattern Blood Pressure 116/76 101/75 107/57 L Blood Pressure Mean 89 83 73 Pulse Ox 96 97 Oxygen Delivery Method Nasal Cannula Venturi Mask Oxygen Flow Rate (L/min) 4 04/28/24 22:25 04/28/24 23:00 Temperature 99.1 F Temperature Source Pulse Rate 67 56 L Respiratory Rate 18 17 Respiratory Effort Respiratory Depth Respiratory Pattern Blood Pressure 116/76 103/70 Blood Pressure Mean 89 81 Pulse Ox 97 94 Oxygen Delivery Method Nasal Cannula Oxygen Flow Rate (L/min) 4 Positive well nourished and well developed General Appearance ED: well developed and NAD HEENT Reports moist mucous membranes Neck supple and no JVD Resp normal respiratory effort and clear to auscultation bilaterally Cardio regular rate and regular rhythm GI non-tender and non-distended Palpation: soft Extremity General Extremety ED: Yes edema General Extremity: edema Neuro oriented x3, CN's II-XII intact bilaterally and no sensory deficits noted Sensorium / Orientation: alert Speech: speech normal Motor Exam: strength 5/5 throughout Psych mental status grossly normal MDM MDM MDM Narrative Medical decision making narrative: Differential diagnosis includes congestive heart failure, pneumonia, bronchitis, acute kidney injury, cardiac dysrhythmia, cardiac ischemia, and electrolyte abnormality. EKG will be obtained to assess for cardiac dysrhythmia and cardiac ischemia. Chest x-ray will be obtained to assess for congestive heart failure and pneumonia. CBC will be obtained to assess for leukocytosis and anemia. Basic metabolic profile will be obtained to assess for electrolyte abnormality and renal function. High-sensitivity troponin will be obtained to assess for cardiac ischemia. BNP will be obtained to assess for congestive heart failure. Lab Data Attestation: I reviewed the patient's lab results. Lab results narrative: CBC was reviewed. There is a mild leukocytosis of 13.7. The remainder was within normal limits. Basic metabolic profile was reviewed. CO2 was slightly elevated at 40.0. BUN was slightly elevated at 31. The remainder is within normal limits. High-sensitivity troponin was reviewed and was normal at 28. Urinalysis was reviewed. Leukocyte esterase was 100. There are 5-10 white blood cells and 5-10 epithelial cells. There is 2+ bacteria. BNP was unable to be obtained due to laboratory equipment failure. Labs: Laboratory Results - last 24 hr 04/28/24 18:09 WBC 13.7 H RBC 3.82 L Hgb 12.1 Hct 39.0 MCV 102.1 H MCH 31.7 MCHC 31.0 L RDW Std Deviation 54.7 H RDW Coeff of Denzel 14.9 H Plt Count 185 MPV 12.1 H Immature Gran % (Auto) 0.600 Neut % (Auto) 72.1 H Lymph % (Auto) 15.6 L [place] % (Auto) 9.0 Eos % (Auto) 2.0 Baso % (Auto) 0.7 Absolute Neuts (auto) 9.9 H Absolute Lymphs (auto) 2.13 Nucleated RBC % 0.5 Sodium 141 Potassium 4.5 Chloride 95 L Carbon Dioxide 40.0 H Anion Gap 5 BUN 31 H Creatinine 0.73 Estim Creat Clear Calc 133.05 Est GFR (MDRD) Af Amer 113 Est GFR (MDRD) Non-Af 93 BUN/Creatinine Ratio 42.6 H Glucose 76 Calcium 9.1 Troponin I High Sens 28 Urine Color Yellow Urine Clarity Sl. Cloudy Urine pH 6.0 Ur Specific [place] 1.015 Urine Protein 15 H Urine Glucose (UA) Normal Urine Ketones Negative Urine Occult Blood 250 H Urine Nitrite Negative Urine Bilirubin Negative Urine Urobilinogen Normal Ur Leukocyte Esterase 100 H Urine RBC 5-10 SEEN Urine WBC 5-10 SEEN Ur Squamous Epith Cells 5-10 SEEN Urine Bacteria 2+ Hyaline Casts 0-5 SEEN Urine Mucus 1+ Radiography Chest X-Ray - ED: 2 View, Read by ED Physician, Read by Radiologist, Cardiomegaly and CHF Diagnostic Testing: Clinical Impression(s) from Imaging Studies Chest X-Ray 04/28/24 18:30 IMPRESSION: Cardiomegaly and enlargement of the central pulmonary arteries. No focal consolidation. [facility] and lateral chest x-ray was obtained. There are 2 views. On my independent interpretation,, there is bilateral perihilar fullness and enlargement of the central pulmonary arteries. There is some cephalization noted. There is cardiomegaly noted. There is no acute infiltrate. Radiologist also interpreted the x-rays and agrees. Management Discussion w/another healthcare provider: Hospitalist Treatment and Re-Evaluation :: Patient was ordered Lasix. Patient refused Lasix. Patient was advised of her findings. Patient ambulated here in the emergency department. Patient's pulse oximeter dropped to 88% while ambulating. Case was discussed with the hospitalist. She will admit the patient to her service. Patient and family understood and were agreeable with the plan. All questions were answered. Discharge Plan Dx/Rx/DC Orders Clinical Impression: Acute on chronic congestive heart failure, Anasarca, Hypoxia Disposition Disposition: Acute Care Hospital [facility]
[2024-04-28 18:18] LABS: Absolute Lymphocyte Count 2.13 X10^3/uL (0.83-4.51); Absolute Neutrophil Count 9.9 X10^3/uL (2.0-7.7); Basophil# 0.09 X10^3/uL; Basophil% 0.7 % (0-1); Eosinophil# 0.28 X10^3/uL; Hemoglobin 12.1 g/dL (12.0-15.0); Lymphocyte # 2.13 X10^3/ul (0.83-4.51); Lymphocyte % 15.6 % (19-41); Mean Corpuscular Hgb 31.7 pg (27.0-32.0); Mean Corpuscular Volume 102.1 fL (81-99); Mean Platelet Vol. 12.1 fl (6.2-12.0); Monocyte# 1.23 X10^3/uL; NRBC Flagged by Analyzer 0.5 % (0-5); Neutrophil # 9.88 X10^3/uL (2.7-7.7); Neutrophil % 72.1 % (47-70); Platelet Count 185 K/mm3 (150-450); RBC Distribution Width CV 14.9 % (11.6-14.6); RBC Distribution Width SD 54.7 fl (35.1-43.9); Red Blood Count 3.82 M/mm3 (4.2-5.4); White Blood Count 13.7 K/mm3 (4.4-11.0)
[2024-04-28 18:26] LABS: Color, Urine Yellow (Yellow); Glucose, Dipstick Normal (Normal); Ketone-Dipstick Negative (Negative); Leukocyte Esterase-Dipstick 100 /ul (Negative); Nitrite-Dipstick Negative (Negative); Occult Blood-Urine 250 /ul (Negative); Protein-Dipstick 15 mg/dl (Negative); Specific Gravity, Urine 1.015 (1.002-1.030); Urine Bilirubin Dipstick Negative (Negative); Urine Clarity Sl. Cloudy (Clear); Urine Urobilinogen Normal (Normal)
--- NOTE | 2024-04-28 18:30 | RAD_ITS ---
PROCEDURE: Chest radiographs REASON FOR EXAM: Shortness of breath TECHNIQUE: Two views of the chest COMPARISON: 02/24/2024 FINDINGS: Mild/moderate cardiomegaly. Enlarged central pulmonary arteries. No focal consolidation, sizeable pleural effusion or pneumothorax. RAD/Chest PA and Lateral IMPRESSION: Cardiomegaly and enlargement of the central pulmonary arteries. No focal conso lidation. Reading Location: [facility]
[2024-04-28 18:37] LABS: Bacteria 2+ /hpf (None Seen); Hyaline Cast 0-5 SEEN /lpf (0-5); Mucous, Urine 1+ /hpf (<or=2+); Red Blood Cells-Urine 5-10 SEEN /hpf (0-5); Squamous Epithelial Cells - UA 5-10 SEEN /hpf (5-10); White Blood Cells 5-10 SEEN /hpf (0-5)
[2024-04-28 18:46] LABS: Anion Gap 5 (5-15); BUN 31 mg/dL (7-18); BUN/Creat Ratio 42.6 RATIO (10-20); Calcium,Total 9.1 mg/dL (8.5-10.1); Chloride 95 mmol/L (98-107); Creatinine, Serum 0.73 mg/dL (0.55-1.02); EST Glomerular Filtration Rate 93 mL/min (>60); Est Glom Filt Rate - Afr Amer 113 mL/min (>60); Estimated Creatinine Clearance 133.05 ml/min; Glucose 76 mg/dL (74-106); Potassium 4.5 mmol/L (3.5-5.1); Sodium Level 141 mmol/L (136-145); Troponin-I HS 28 pg/mL (3.0-54.0)
--- NOTE | 2024-04-28 22:26 | HP.PCM.HOS_ITS ---
HPI - General General Date of Admission: 04/28/24 Date of Service: 04/28/24 Chief Complaint: Dyspnea, edema, weight gain, orthopnea. HPI Narrative The patient is a 43 y/o F w/ PMHx: CAD, Morbid obesity, COPD/Asthma w/ allergic rhinitis, Pulmonary HTN following w/ Dr. 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 She denies any chest discomfort or chest tightness. Workup in the ED included T97.9 Temporal, heart rate 66, BP 121/81, respiratory rate 22, initially 82% on 2 L nasal cannula with most recent repeat evaluation T98, heart rate 56, BP 101/75, respiratory rate 14, 96% on 2 L nasal cannula, CBC with WBC 13.7, Hgb 12.1, MCV 102.1, platelet 185 with left shift, BMP with chloride 95, carbon dioxide 40, BUN/creatinine 31/0.73, GFR 113, troponin 28, BNP pending upon request evaluation of patient, urine noted be cloudy, protein 15, occult blood 250, negative nitrite, leukocyte esterase 100 with urine RBCs and WBCs 5-10 however squamous epithelial cells are also 5-10 with 2+ urine bacteria, chest x-ray with cardiomegaly enlargement of the central pulmonary arteries with no focal consolidation, EKG with SR with flipped T waves in precordial leads similar to previously. In the ED patient refused Lasix administration thus discussed with ED physician requested transition to Bumex versus torsemide. [facility] Medical History CAD (coronary artery disease) DACIA treated with BiPAP Prader-Willi syndrome Kidney disease Hypothyroidism Non-smoker Asthma Chest pain DVT (deep venous thrombosis) (HFpEF) heart failure with preserved ejection fraction HTN (hypertension) DACIA treated with BiPAP Morbid obesity with body mass index (BMI) greater than or equal to 50 Menorrhagia with regular cycle Cystocele with incomplete uterovaginal prolapse Prader-Willi syndrome Enlarged RV (right ventricle) COPD (chronic obstructive pulmonary disease) Hypothyroidism Prader-Willi syndrome Morbid obesity with BMI of 40.0-44.9, adult Home Medications ?Medication ?Instructions ?Recorded ?Last Taken ?Type ammonium lactate 12 % topical cream 1 applicatio topic al DAILY skin 10/26/13 12/26/23 History nystatin 100,000 unit/gram topical 1 applic topical BI D rash 06/01/16 12/26/23 History powder clotrimazole 1 % topical cream 1 applic topical BID sk in 04/08/17 12/26/23 History fluticasone propionate 50 1 spray intranasal DAILY moses athing 04/08/17 12/26/23 History mcg/actuation nasal spray,suspension norethindrone (contraceptive) 0.35 0.35 mg PO QDAY bir th control #84 06/02/23 12/26/23 Rx mg tablet (Arianna) tabs levothyroxine 100 mcg tablet 100 mcg PO DAILY thyroid 12/26/23 12/26/23 History mometasone-formoterol HFA 100 2 inh inhalation BID moses athing 12/26/23 12/26/23 History mcg-5 mcg/actuation aerosol inhaler (Dulera) multivitamin-ferrous 1 tab PO DAILY vitamin 12/2512/26/23 History fumarate-folic acid 18 mg-400 mcg tablet (A Thru Z Advanced Formula) carvedilol 3.125 mg tablet 3.125 mg PO BID heart healt h #60 01/02/24 Unknown Rx tabs omega-3 fatty acids 1,000 mg 1,000 mg PO DAILY supplem ent 02/17/24 Unknown History capsule bumetanide 1 mg tablet 1 mg PO BID #60 tabs 4 Unknown Rx bumetanide 1 mg tablet 1 mg PO DAILY PRN weight gai n #30 03/01/24 Unknown Rx tabs aspirin 81 mg chewable tablet 1 tab PO DAILY 04/28/24 Unknown History calcium carbonate (Oyster Shell 500 mg PO BID 04/28/24 Unknown History Calcium) epinephrine 0.3 mg/0.3 mL 0.3 mg IM DAILY PRN anaphyla xis 04/28/24 Unknown History injection, auto-injector fluticasone furoate 100 1 inh inhalation DAILY 04/28 Unknown History mcg-vilanterol 25 mcg/dose inhalation powder (Breo Ellipta) multivitamin-ferrous 1 tab PO DAILY 04/28/24 Unkn own History fumarate-folic acid 18 mg-400 mcg tablet (Certavite-Antioxidant) torsemide 10 mg tablet 20 mg PO BID 04/28/24 Unknow n History Allergy/AdvReac Type Severity Reaction Status Date / Time insect venom (insect bites) Allergy Intermediate Itching Verified 04/28/24 16:43 phenytoin sodium (From Allergy Unknown Verified 04/28/24 16:43 Dilantin) phenytoin sodium extended Allergy Unknown Verified 04/28/24 16:43 (From Dilantin) venom-honey bee (bee venom Allergy Unknown Verified 04/28/24 16:43 (honey bee)) Family History Grandmother Diabetes Heart disease Hypertension Mother Diabetes Grandfather Hypertension Father No problems noted. Surgical History History of coronary artery stent placement History of tonsillectomy and adenoidectomy Social History household members: none housing: other details: half-way. Smoking Status: Never smoker alcohol intake: never substance use type: does not use caffeine: Yes frequency: daily seatbelt use: always do you feel safe at home: Yes additional social history: Louis Gimenez [facility] Narrative Admission Review of Systems: CONSTITUTIONAL: No weight loss, fever, chills, + weakness or fatigue, weight gain. HEENT: Eyes: No visual loss, blurred vision, double vision or yellow sclerae. Ears, Nose, Throat: No hearing loss, sneezing, congestion, runny nose or sore throat. SKIN: No rash or itching, lesions, wounds. CARDIOVASCULAR: + Worsening edema, orthopnea. No chest pain, palpitations, syncopal events. RESPIRATORY: + Dyspnea. No marked cough or sputum, wheezing, hemoptysis. GASTROINTESTINAL: No decreased appetite, nausea, emesis, diarrhea, abdominal pain, melena, BRBPR. GENITOURINARY: No dysuria, frequency, urgency or retention. NEUROLOGICAL: + Prader-Willi syndrome with underlying mental debility. No headache, dizziness, syncope, paralysis, ataxia, numbness or tingling in the extremities, focal weakness, change in bowel or bladder control, seizure. MUSCULOSKELETAL: + muscle, back pain, joint pain or stiffness. HEMATOLOGIC: No anemia, bleeding or bruising. LYMPHATICS: No enlarged nodes. No history of splenectomy. PSYCHIATRIC: No history of depression or anxiety. ENDOCRINOLOGIC: No reports of sweating, cold or heat intolerance. No polyuria or polydipsia. ALLERGIES: + History of allergic rhinitis, asthma. Vital Signs Vital Signs Vital Signs: 04/28/24 16:45 04/28/24 16:45 04/28/24 16:52 Temperature 97.9 F 97.9 F Temperature Source Temporal Temporal Pulse Rate 66 66 Respiratory Rate 22 H 22 H Respiratory Effort Respiratory Depth Respiratory Pattern Blood Pressure 121/81 H 121/81 H Blood Pressure Mean 94 94 Pulse Ox 82 97 97 Oxygen Delivery Method Nasal Cannula Nasal Cannula Nasal Cannula Oxygen Flow Rate (L/min) 2 3 3 04/28/24 17:52 04/28/24 18:05 04/28/24 18:05 Temperature 97.7 F L Temperature Source Oral Pulse Rate 69 Respiratory Rate 16 17 Respiratory Effort Respiratory Depth Respiratory Pattern Blood Pressure 106/76 Blood Pressure Mean 86 Pulse Ox 98 98 Oxygen Delivery Method Nasal Cannula Nasal Cannula Nasal Cannula Oxygen Flow Rate (L/min) 2 2 2 04/28/24 18:35 04/28/24 19:00 04/28/24 20:00 Temperature 98.9 F 98.1 F Temperature Source Oral Oral Pulse Rate 75 60 Respiratory Rate 16 16 Respiratory Effort Short of Breath Respiratory Depth Normal Respiratory Pattern Tachypnea Blood Pressure 111/90 H 108/94 H Blood Pressure Mean 97 98 Pulse Ox 94 98 Oxygen Delivery Method Nasal Cannula Nasal Cannula Nasal Cannula Oxygen Flow Rate (L/min) 2 2 2 04/28/24 21:00 04/28/24 21:32 04/28/24 22:00 Temperature 98 F 99.1 F Temperature Source Temporal Oral Pulse Rate 56 L 88 Respiratory Rate 14 17 Respiratory Effort Respiratory Depth Respiratory Pattern Blood Pressure 116/76 101/75 107/57 L Blood Pressure Mean 89 83 73 Pulse Ox 96 97 Oxygen Delivery Method Nasal Cannula Venturi Mask Oxygen Flow Rate (L/min) 4 04/28/24 22:25 Temperature 99.1 F Temperature Source Pulse Rate 67 Respiratory Rate 18 Respiratory Effort Respiratory Depth Respiratory Pattern Blood Pressure 116/76 Blood Pressure Mean 89 Pulse Ox 97 Oxygen Delivery Method Oxygen Flow Rate (L/min) Weight Weight: 307 lb 8.717 oz Body Mass Index (BMI) 60.0 Physical Exam Narrative Physical Examination: General: Awake, alert, oriented to self, place and recent events, cooperative, seated upright in the ED bed, no acute distress. Skin: Normal color, normal turgor, no icterus, no cyanosis, bilateral lower extremity venous stasis skin changes, mild fold intertrigo. HEENT: AT/NC, EOMI, PERRLA, MMM, difficult to discern carotid bruits and JVD given very thickened neck. Lungs: Significantly diminished, distant breath sounds, minimal rales at the bases, no rhonchi or wheezing. Heart: Regular rate and rhythm; no gallop, rub audible. Abdomen: Soft, morbidly obese, NTTP, distant BS, difficult to discern distention HSM given habitus. Extremities: No cyanosis, no clubbing, significant pedal to above knee BL 3+ pitting edema with several skin rituals which is chronic for this patient but more pronounced with edema currently, see skin. Neurological: Patient awake, alert, oriented as noted, cognitive function with underlying impairment given underlying Prader-Willi syndrome, currently baseline intact, improving, pupils equally reactive to light and accommodation, cranial nerves grossly normal, moving all 4 extremities, no focal deficits, strength moderately to severely globally decreased secondary to acute presentation. Psychiatric: Affect appears flat, fatigued, no acute evidence of depressive or anxiety feelings. Results Lab / Micro Data 04/28/24 18:09 04/28/24 18:09 Labs: Laboratory Results - last 24 hr 04/28/24 18:09: WBC 13.7 H, RBC 3.82 L, Hgb 12.1, Hct 39.0, MCV 102.1 H, MCH 31.7, MCHC 31.0 L, RDW Std Deviation 54.7 H, RDW Coeff of Denzel 14.9 H, Plt Count 185, MPV 12.1 H, Immature Gran % (Auto) 0.600, Neut % (Auto) 72.1 H, Lymph % (Auto) 15.6 L, [place] % (Auto) 9.0, Eos % (Auto) 2.0, Baso % (Auto) 0.7, Absolute Neuts (auto) 9.9 H, Absolute Lymphs (auto) 2.13, Nucleated RBC % 0.5, Sodium 141, Potassium 4.5, Chloride 95 L, Carbon Dioxide 40.0 H, Anion Gap 5, BUN 31 H, Creatinine 0.73, Estim Creat Clear Calc 133.05, Est GFR (MDRD) Af Amer 113, Est GFR (MDRD) Non-Af 93, BUN/Creatinine Ratio 42.6 H, Glucose 76, Calcium 9.1, Troponin I High Sens 28, Urine Color Yellow, Urine Clarity Sl. Cloudy, Urine pH 6.0, Ur Specific [place] 1.015, Urine Protein 15 H, Urine Glucose (UA) Normal, Urine Ketones Negative, Urine Occult Blood 250 H, Urine Nitrite Negative, Urine Bilirubin Negative, Urine Urobilinogen Normal, Ur Leukocyte Esterase 100 H, Urine RBC 5-10 SEEN, Urine WBC 5-10 SEEN, Ur Squamous Epith Cells 5-10 SEEN, Urine Bacteria 2+, Hyaline Casts 0-5 SEEN, Urine Mucus 1+ Imaging Radiology Impression Chest X-Ray 04/28/24 18:30 IMPRESSION: Cardiomegaly and enlargement of the central pulmonary arteries. No focal consolidation. Reading Location: [facility] Assessment & Plan Assessment/Plan (1) Acute on chronic congestive heart failure: (2) Hypoxia: PLAN: Plan The patient is a 43 y/o F w/ PMHx: CAD, Morbid obesity, COPD/Asthma w/ allergic rhinitis, Pulmonary HTN following w/ Dr. 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 #1. Acute Hypoxia secondary to Acute Decompensated HFpEF complicated by underlying Pulmonary HTN: Will admit to PCU, will maintain on IV Bumex diuresis as patient was refusing Lasix in the ED, monitor I/Os, maintain on intake restriction, continue medical therapy, TSH and magnesium level requested, noted 12/27/2023 echocardiogram with normal LV size and function, dilated RV with impaired function, moderate TR, LV systolic function normal, LVEF of 55%, mildly dilated RV, pulmonary pressure 67 mmHg thus will defer repeat, maintain bilateral lower extremities neck zainab wraps with elevation of lower extremities as able. #2. Prader-Willi syndrome: Unclear exact genotypic/phenotypic association, unclear if there is any behavioral disturbance component encouraged continued aggressive outpatient follow-up for any developmental issues/growth hormone deficiencies in addition to significant morbid obesity noted as well as continued evaluation for ongoing compliance with her BiPAP for underlying sleep apnea. #3. Hypertension: IV Bumex as noted as patient refused Lasix, continue Coreg, per current list does not appear to be on lisinopril however she was previously on this thus clarifying, list also notes both torsemide and Bumex thus clarifying this as well however patient and mother are noting she is on torsemide currently, PRN hydralazine. #4. Chronic COPD/Asthma with allergic rhinitis: We will hold home inhalers and in the interim we will transition to ATC budesonide therapy, PRN albuterol, HOB, IS parameters, continue fluticasone home regimen, encourage BiPAP nightly. #5. CAD: Status post PCI per chart reporting, continue aspirin, Coreg, previously had been on lisinopril but not currently listing thus clarifying, not on statin therapy with no allergy listed, encourage continued outpatient follow- up with cardiology as previously arranged. #6. Hypothyroidism: Continue home levothyroxine regimen, TSH requested. #7. Morbid Obesity: Weight loss and lifestyle changes encouraged. #8. DACIA: Encourage BiPAP nightly. #9. DVT prophylaxis: Lovenox. #10. CODE status: Full Code status. Charges/Coding Visit Charges Inpatient E&M: 10197 Init Hosp L3
[2024-04-29] VITALS (14 sets, daily range): BP systolic 93–127; BP diastolic 56–77; PULSE 57–80; RESP 12–23; TEMP 36.6–37.2; O2SAT 93–100; BMI 59.5
--- NOTE | 2024-04-29 00:26 | ED.RN ---
RESPIRATORY CALLED FOR CPAP D/T PT. SLEEPING AND INT. DESATING
--- NOTE | 2024-04-29 00:43 | CPS ---
called by nurse for sats dropping when pt falls asleep-cpap maching brought over -pt did not want to go on at this time-nurse aware
[2024-04-29 01:59] LABS: Magnesium 2.3 mg/dL (1.6-2.6)
--- NOTE | 2024-04-29 02:35 | CPS ---
pt did not want to wear cpap at this time-98% on 3 l/m via nc
[2024-04-29 03:32] LABS: Troponin-I HS 14 pg/mL (3.0-54.0)
--- NOTE | 2024-04-29 03:45 | NURSING ---
pt lethargic and drowsy. woken up for admission questions, but falls asleep before completing answer. For example when I asked for her birthday she said [birth year] and fell back to sleep. Unable to maintain conversation enough to complete all admission questions. I contacted her ED RN who stated her speech is normally delayed, but she had also been very drowsy earlier in the night and she felt her inability to converse was likely related to being sleepy.
[2024-04-29 05:00] LABS: Absolute Lymphocyte Count 2.29 X10^3/uL (0.83-4.51); Absolute Neutrophil Count 8.2 X10^3/uL (2.0-7.7); Basophil# 0.07 X10^3/uL; Basophil% 0.6 % (0-1); Eosinophil# 0.44 X10^3/uL; Eosinophils% 3.6 % (0-5); Hematocrit 34.6 % (37-47); Hemoglobin 10.5 g/dL (12.0-15.0); Lymphocyte # 2.29 X10^3/ul (0.83-4.51); Lymphocyte % 18.9 % (19-41); Mean Corp Hgb Conc 30.3 g/dL (32-36); Mean Corpuscular Hgb 31.5 pg (27.0-32.0); Mean Corpuscular Volume 103.9 fL (81-99); Monocyte# 1.05 X10^3/uL; Monocyte% 8.7 % (0-10); NRBC Flagged by Analyzer 0.2 % (0-5); Neutrophil # 8.22 X10^3/uL (2.7-7.7); Neutrophil % 67.7 % (47-70); Platelet Count 165 K/mm3 (150-450); RBC Distribution Width CV 14.8 % (11.6-14.6); RBC Distribution Width SD 55.6 fl (35.1-43.9); Red Blood Count 3.33 M/mm3 (4.2-5.4); White Blood Count 12.1 K/mm3 (4.4-11.0)
[2024-04-29 05:34] LABS: Troponin-I HS 14 pg/mL (3.0-54.0)
[2024-04-29 06:20] LABS: ALB/GLOB Ratio 0.8 RATIO (0.9-2.4); AST(SGOT) 17 U/L (15-37); Alanine Aminotransfer ALT/SGPT 24 U/L (13-56); Albumin, Serum 2.7 g/dL (3.2-5.0); Alkaline Phosphatase 88 U/L (45-117); Anion Gap 4 (5-15); BUN 26 mg/dL (7-18); BUN/Creat Ratio 49.4 RATIO (10-20); Calcium,Total 8.5 mg/dL (8.5-10.1); Chloride 96 mmol/L (98-107); Creatinine, Serum 0.53 mg/dL (0.55-1.02); EST Glomerular Filtration Rate 136 mL/min (>60); Est Glom Filt Rate - Afr Amer 164 mL/min (>60); Estimated Creatinine Clearance 183.25 ml/min; Globulin 3.5 g/dL (2.2-4.2); Glucose 94 mg/dL (74-106); Potassium 3.4 mmol/L (3.5-5.1); Protein, Total 6.2 g/dL (6.4-8.2); Sodium Level 141 mmol/L (136-145)
[2024-04-29] MEDS: Levothyroxine 100 MCG Tablet PO (06:31)
[2024-04-29] MEDS: Carvedilol 3.125 MG TABLET PO ×2 (09:01→17:14)
[2024-04-29] MEDS: Bumetanide 1 MG/4 ML Vial IV ×2 (09:01→17:14)
[2024-04-29] MEDS: Aspirin 81 MG TAB.CHEW PO (09:02)
[2024-04-29] MEDS: Fluticasone 0.05% 1 SPRAY NASAL.SRY NASAL (09:02)
[2024-04-29] MEDS: Menthol/Lanolin/Calamine/Znox 113 GM Tube 1 APPLIC TOPICAL ×2 (09:02→21:19)
[2024-04-29] MEDS: Enoxaparin 40 MG/0.4 ML Syringe SC ×2 (09:03→21:18)
[2024-04-29] MEDS: Clotrimazole 1 APPLIC Tube TOPICAL ×2 (09:09→21:19)
[2024-04-29] MEDS: Nystatin Powder 15gm Bottle 1 APPLIC TOPICAL ×2 (09:10→21:19)
[2024-04-29 10:46] LABS: Troponin-I HS 12 pg/mL (3.0-54.0)
--- NOTE | 2024-04-29 10:50 | PCM.PN.HOSP ---
Reason for Visit Reason for Visit: Diagnoses Heart failure, unspecified (04/28/24) Hypoxemia (04/28/24) Subjective Subjective Saw patient at bedside this morning. Patient was sitting back comfortably in bed, no acute distress. She was answering questions with short appropriate responses. Denied any acute pain or discomfort this morning. Has had good urine output with IV diuretics. No other concerns this morning. Objective Data Objective Data Vital Signs: Vital Signs Temp Pulse Resp BP Pulse Ox O2 Del Method O2 Flow Rate 98.3 F 62 20 H 93/65 100 Nasal Cannula 5 04/29/24 08:50 04/29/24 08:50 04/29/24 08:50 04/29/24 08:50 04/29/24 10:00 04/29/24 10:00 04/29/24 10:00 Oxygen Flow Rate (L/min) 5 Oxygen Delivery Method Nasal Cannula Weight: 139.5 kg Body Mass Index (BMI) 60.0 Lab / Micro Data 04/29/24 04:53 04/29/24 04:53 Labs: Laboratory Results - last 24 hr 04/28/24 18:09: WBC 13.7 H, RBC 3.82 L, Hgb 12.1, Hct 39.0, MCV 102.1 H, MCH 31.7, MCHC 31.0 L, RDW Std Deviation 54.7 H, RDW Coeff of Denzel 14.9 H, Plt Count 185, MPV 12.1 H, Immature Gran % (Auto) 0.600, Neut % (Auto) 72.1 H, Lymph % (Auto) 15.6 L, [place] % (Auto) 9.0, Eos % (Auto) 2.0, Baso % (Auto) 0.7, Absolute Neuts (auto) 9.9 H, Absolute Lymphs (auto) 2.13, Nucleated RBC % 0.5, Sodium 141, Potassium 4.5, Chloride 95 L, Carbon Dioxide 40.0 H, Anion Gap 5, BUN 31 H, Creatinine 0.73, Estim Creat Clear Calc 133.05, Est GFR (MDRD) Af Amer 113, Est GFR (MDRD) Non-Af 93, BUN/Creatinine Ratio 42.6 H, Glucose 76, Calcium 9.1, Magnesium 2.3, Troponin I High Sens 28, Urine Color Yellow, Urine Clarity Sl. Cloudy, Urine pH 6.0, Ur Specific [place] 1.015, Urine Protein 15 H, Urine Glucose (UA) Normal, Urine Ketones Negative, Urine Occult Blood 250 H, Urine Nitrite Negative, Urine Bilirubin Negative, Urine Urobilinogen Normal, Ur Leukocyte Esterase 100 H, Urine RBC 5-10 SEEN, Urine WBC 5-10 SEEN, Ur Squamous Epith Cells 5-10 SEEN, Urine Bacteria 2+, Hyaline Casts 0-5 SEEN, Urine Mucus 1+ 04/29/24 03:10: Troponin I High Sens 14 04/29/24 04:53: WBC 12.1 H, RBC 3.33 L, Hgb 10.5 L, Hct 34.6 L, MCV 103.9 H, MCH 31.5, MCHC 30.3 L, RDW Std Deviation 55.6 H, RDW Coeff of Denzel 14.8 H, Plt Count 165, MPV 11.0, Immature Gran % (Auto) 0.500, Neut % (Auto) 67.7, Lymph % (Auto) 18.9 L, [place] % (Auto) 8.7, Eos % (Auto) 3.6, Baso % (Auto) 0.6, Absolute Neuts (auto) 8.2 H, Absolute Lymphs (auto) 2.29, Nucleated RBC % 0.2, Sodium 141, Potassium 3.4 L, Chloride 96 L, Carbon Dioxide 41.0 H, Anion Gap 4 L, BUN 26 H, Creatinine 0.53 L, Estim Creat Clear Calc 183.25, Est GFR (MDRD) Af Amer 164, Est GFR (MDRD) Non-Af 136, BUN/Creatinine Ratio 49.4 H, Glucose 94, Calcium 8.5, Total Bilirubin 0.40, AST 17, ALT 24, Alkaline Phosphatase 88, Troponin I High Sens 14, Total Protein 6.2 L, Albumin 2.7 L, Globulin 3.5, Albumin/Globulin Ratio 0.8 L, TSH 3.530 04/29/24 10:00: Troponin I High Sens 12 Radiography Diagnostic Testing: Radiology Impression Chest X-Ray 04/28/24 18:30 IMPRESSION: Cardiomegaly and enlargement of the central pulmonary arteries. No focal consolidation. [facility] Physical Exam Const alert, oriented x3 and no apparent distress Constitutional Narrative: Middle-age female, class III obesity, mildly fatigued appearing, otherwise sitting back comfortably in bed, answering questions with short appropriate responses, in no acute distress. General Appearance: cooperative and comfortable HEENT normocephalic, head/scalp atraumatic, hearing grossly normal bilaterally, nasal mucous membranes and turbinates normal and moist oral mucous membranes Eyes PERRL, EOMs intact bilaterally and conjunctivae normal Neck full ROM Chest inspection of chest normal Resp normal respiratory effort and no use of accessory muscles Resp Narrative: Breathing comfortably on room air at rest. Diminished breath sounds bilaterally throughout due to body habitus. No wheezing or crackles noted. Cardio regular rate, regular rhythm, no murmurs and peripheral pulses 2+ throughout GI normal to inspection, nondistended, normoactive bowel sounds, soft to palpation, non-tender and non-distended Back/Spine normal ROM Extremity Extremity Narrative: Significant lower extremity lymphedema noted down to the ankles with Cl wraps in place. Notably has no noticeable swelling in her feet. Neuro moves all extremities Sensorium / Orientation: awake and alert Psych mental status grossly normal Assessment & Plan Assessment/Plan (1) Acute on chronic congestive heart failure: (2) Hypoxia: PLAN: Plan Patient is a 43-year-old female who presented [facility] ED on 04/28/2024 with shortness of breath and worsening edema. 1. Acute hypoxia secondary to mild acute HFpEF in setting of severe pulmonary hypertension with DACIA and OHS ? Patient well-known to us with multiple admissions in the past 6 months. 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 Was referred to palliative care on prior admission in February but apparently has not seen them yet. Case management placed new referral during this hospitalization. Patient with hypoxia and mild volume overload on admit. BMP stable from previous. Chest x-ray showed cardiomegaly and enlargement of central pulmonary arteries. Will continue treatment with IV Bumex for now and follow-up daily BMP and urine output. Tentatively planning to resume home p.o. diuretic on 04/30 in preparation for discharge. Continue CPAP at night and with naps. Chronic medical conditions: ? Class III obesity: BMI 59 on admit. Complicates hospital course, care and prognosis. ? Prader-Willi syndrome: Lives in senior living and plan is to return there on discharge. Continue outpatient follow-up for chronic issues related to this diagnosis. ? History of nonobstructive CAD and hypertension: Continue home aspirin and Coreg. ? Hypothyroidism: Continue home Synthroid. ? COPD: Continue home inhalers. DVT prophylaxis: Lovenox twice daily CODE STATUS: Full code, verified Expected disposition: Back to senior living, 1 to 2 days Total clinical time spent by myself addressing the patient's medical issues, reviewing all the data, and collaborating with patient's care team: 35 minutes. Charges/Coding Visit Charges Inpatient E&M: 14594 Subs Hosp L2
--- NOTE | 2024-04-29 11:17 | NURSING ---
Patient's mother called to clarify medications. She will check patients pill pods and follow up after work this evening.
[2024-04-29] MEDS: CLARIFY ORDER 1 EACH NOTE (11:24)
--- NOTE | 2024-04-29 12:34 | CASEMGMT ---
Social Work SW placed call to pt's mother/guardian Sabrina Zamora. Sabrina confirms that pt is living in a senior living and plans to return there upon discharge. During last admission, pt was set up with a hospital bed and home oxygen and Sabrina confirms pt is using this DME. Pt is active with [facility] for SN, PT, OT and Sabrina would like this to continue. During last admission, referral had been made to Palliative Care. Sabrina states she never heard from them (Palliative indicates Sabrina did not return calls). Sabrina states she would like a new referral to Palliative. KE spoke with Palliative who state referral has been closed and new referral will be needed at this time. GERMÁN Knapp
--- NOTE | 2024-04-29 14:26 | CASEMGMT ---
RODRÍGUEZ NOVOA NOTE: Order for Palliative referral received from Dr Lizama and sent to [facility] via e-mail. Lori GONSALVES RN CM
--- NOTE | 2024-04-29 14:37 | CASEMGMT ---
[facility] confirmed that pt is active with their agency and receives PT/OT/SN. SW updated. Mima Zepeda DC Planning Asst.
[2024-04-29 14:44] LABS: BNP,B-Type NATRIURETIC PEPTIDE 277.4 pg/mL (0-100)
--- NOTE | 2024-04-29 15:15 | CASEMGMT ---
HH resumption sent to [facility]. Mima Zepeda DC Planning Asst.
[2024-04-29] MEDS: Budesonide Respules 0.5 MG/2 ML AMPUL.NEB. INHALATION (19:36)
[2024-04-29] MEDS: Ammonium Lactate 225 gm Bottle 1 APPLIC TOPICAL (19:56)
[2024-04-29] MEDS: 0.9% Saline Lock 10 ML Syringe IV (21:20)
[2024-04-30] VITALS (13 sets, daily range): BP systolic 112–125; BP diastolic 69–82; PULSE 62–78; RESP 16–24; TEMP 36.5–36.7; O2SAT 94–99; BMI 59.3
[2024-04-30] MEDS: Levothyroxine 100 MCG Tablet PO (06:22)
[2024-04-30] MEDS: Acetaminophen 325 MG Tablet 650 MG PO (06:22)
[2024-04-30 08:02] LABS: Cholesterol 137 mg/dL (200); High Density Lipoprotein 49 mg/dL; Triglycerides 62 mg/dL; Very Low Density Lipoprotein 12 mg/dL (5-40)
[2024-04-30 08:10] LABS: Anion Gap 3 (5-15); BUN 19 mg/dL (7-18); BUN/Creat Ratio 38.7 RATIO (10-20); Calcium,Total 8.5 mg/dL (8.5-10.1); Chloride 100 mmol/L (98-107); Creatinine, Serum 0.49 mg/dL (0.55-1.02); EST Glomerular Filtration Rate 147 mL/min (>60); Est Glom Filt Rate - Afr Amer 178 mL/min (>60); Estimated Creatinine Clearance 196.76 ml/min; Glucose 96 mg/dL (74-106); Sodium Level 144 mmol/L (136-145)
[2024-04-30] MEDS: Menthol/Lanolin/Calamine/Znox 113 GM Tube 1 APPLIC TOPICAL ×4 (08:52→21:48)
[2024-04-30] MEDS: Aspirin 81 MG TAB.CHEW PO (08:54)
[2024-04-30] MEDS: Carvedilol 3.125 MG TABLET PO ×2 (08:54→18:49)
[2024-04-30] MEDS: Budesonide Respules 0.5 MG/2 ML AMPUL.NEB. INHALATION ×2 (09:45→20:05)
--- NOTE | 2024-04-30 10:35 | CASEMGMT ---
Social Work SW called N, the number is not working. KE called the RN from the shelter, Shaunna Moise, she states pt will likely go home to her mother's home rather than back to the shelter at discharge. KE called pt's mother Deanne Zamora, verified pt will go home should pt go home on the weekend, as this is the weekend for pt to be home w/her mother. If pt goes home next week, then pt will likely return to the shelter. KE called RODRÍGUEZ Maza from the shelter back, relayed the above information. She states to call and fax her all discharge instructions should pt leave on the weekend, as she also works for [employer] and will communicate the information to them. Green sheet placed on chart in anticipation of weekend discharge. IESHA Trammell
[2024-04-30] MEDS: Enoxaparin 40 MG/0.4 ML Syringe SC ×2 (11:26→21:50)
[2024-04-30] MEDS: Fluticasone 0.05% 1 SPRAY NASAL.SRY NASAL (11:26)
[2024-04-30] MEDS: Nystatin Powder 15gm Bottle 1 APPLIC TOPICAL ×2 (11:27→21:47)
[2024-04-30] MEDS: Clotrimazole 1 APPLIC Tube TOPICAL ×2 (11:28→21:48)
--- NOTE | 2024-04-30 13:12 | PCM.PN.HOSP ---
Reason for Visit Reason for Visit: Diagnoses Heart failure, unspecified (04/28/24) Hypoxemia (04/28/24) Subjective Subjective Saw patient at bedside this morning. Patient appeared similar today to yesterday. She does have mild crackles noted in bilateral airways and continues to have significant lower extremity edema noted. Her feet do appear swollen again today with pitting edema. Objective Data Objective Data Vital Signs: Vital Signs Temp Pulse Resp BP Pulse Ox O2 Del Method O2 Flow Rate 98.1 F 78 20 H 125/74 H 98 Nasal Cannula 2 04/30/24 09:44 04/30/24 09:50 04/30/24 09:50 04/30/24 09:44 04/30/24 09:50 04/30/24 12:06 04/30/24 12:06 FiO2 21 04/30/24 03:18 Oxygen Flow Rate (L/min) 2 Oxygen Delivery Method Nasal Cannula Weight: 137.977 kg Body Mass Index (BMI) 59.3 Intake & Output: Intake and Output for Last 24 Hours 04/28/24 04/29/24 04/30/24 23:59 23:59 23:59 Intake Total 720 / 720 120 / 120 Output Total 200 / 200 Balance 720 / 720 -80 / -80 Lab / Micro Data 04/29/24 04:53 04/30/24 07:03 Labs: Laboratory Results - last 24 hr 04/28/24 18:09: B-Natriuretic Peptide 277.4 H 04/30/24 07:03: Sodium 144, Potassium 4.0, Chloride 100, Carbon Dioxide 41.0 H, Anion Gap 3 L, BUN 19 H, Creatinine 0.49 L, Estim Creat Clear Calc 196.76, Est GFR (MDRD) Af Amer 178, Est GFR (MDRD) Non-Af 147, BUN/Creatinine Ratio 38.7 H, Glucose 96, Calcium 8.5, Triglycerides 62, Cholesterol 137, LDL Cholesterol 76, VLDL Cholesterol 12, HDL Cholesterol 49 Physical Exam Const alert, oriented x3 and no apparent distress Constitutional Narrative: Middle-age female, class III obesity, mildly fatigued appearing, otherwise sitting back comfortably in bed, answering questions with short appropriate responses, in no acute distress. Stable. General Appearance: cooperative and comfortable HEENT normocephalic, head/scalp atraumatic, hearing grossly normal bilaterally, nasal mucous membranes and turbinates normal and moist oral mucous membranes Eyes PERRL, EOMs intact bilaterally and conjunctivae normal Neck full ROM Chest inspection of chest normal Resp normal respiratory effort and no use of accessory muscles Resp Narrative: Breathing comfortably on 2L NC at rest. Diminished breath sounds bilaterally throughout due to body habitus but mild crackles noted bilaterally. No wheezing noted. Cardio regular rate, regular rhythm, no murmurs and peripheral pulses 2+ throughout GI normal to inspection, nondistended, normoactive bowel sounds, soft to palpation, non-tender and non-distended Back/Spine normal ROM Extremity Extremity Narrative: Significant lower extremity lymphedema noted down to the ankles. +3-4 pitting edema noted in her feet as well today. Neuro moves all extremities Sensorium / Orientation: awake and alert Psych mental status grossly normal Assessment & Plan Assessment/Plan (1) Acute on chronic congestive heart failure: (2) Hypoxia: PLAN: Plan Patient is a 43-year-old female who presented [facility] ED on 04/28/2024 with shortness of breath and worsening edema. 1. 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 Patient well-known to us with multiple admissions in the past 6 months. 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 Was referred to palliative care on prior admission in February but apparently has not seen them yet. Case management placed new referral during this hospitalization. Patient with hypoxia and volume overload on admit. BMP stable from previous. Chest x-ray showed cardiomegaly and enlargement of central pulmonary arteries. Has had fairly good urine output on IV Bumex but continues to have significant lower extremity edema especially in the feet, which is different from previous. Will increase to IV Bumex 2 mg 3 times daily for now and continue to follow daily BMP and urine output. Continue CPAP at night and with naps. Completed O2 testing on 04/30 and required 2 L nasal cannula both at rest and with exertion. Will plan to repeat testing once more volume has been removed via diuresis. Chronic medical conditions: ? Class III obesity: BMI 59 on admit. Complicates hospital course, care and prognosis. ? 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 Continue outpatient follow-up for chronic issues related to this diagnosis. ? History of nonobstructive CAD and hypertension: Continue home aspirin and Coreg. ? Hypothyroidism: Continue home Synthroid. ? COPD: Continue home inhalers. DVT prophylaxis: Lovenox twice daily CODE STATUS: Full code, verified Expected disposition: Back to care home, 1 to 2 days Total clinical time spent by myself addressing the patient's medical issues, reviewing all the data, and collaborating with patient's care team: 35 minutes. Charges/Coding Visit Charges Inpatient E&M: 91771 Subs Hosp L2
[2024-04-30] MEDS: Bumetanide 1 MG/4 ML Vial 2 MG IV ×2 (15:30→21:50)
[2024-04-30] MEDS: 0.9% Saline Lock 10 ML Syringe IV ×2 (15:33→21:50)
[2024-04-30] MEDS: Ammonium Lactate 225 gm Bottle 1 APPLIC TOPICAL (21:49)
[2024-05-01] VITALS (11 sets, daily range): BP systolic 102–117; BP diastolic 47–70; PULSE 55–72; RESP 16–24; TEMP 36–36.8; O2SAT 87–100; BMI 59.1
[2024-05-01] MEDS: Bumetanide 1 MG/4 ML Vial 2 MG IV (06:43)
[2024-05-01] MEDS: Levothyroxine 100 MCG Tablet PO (06:44)
[2024-05-01 07:37] LABS: Hematocrit 36.8 % (37-47); Hemoglobin 10.7 g/dL (12.0-15.0); Mean Corp Hgb Conc 29.1 g/dL (32-36); Mean Corpuscular Hgb 31.4 pg (27.0-32.0); Mean Corpuscular Volume 107.9 fL (81-99); Platelet Count 145 K/mm3 (150-450); RBC Distribution Width CV 14.6 % (11.6-14.6); RBC Distribution Width SD 57.2 fl (35.1-43.9); Red Blood Count 3.41 M/mm3 (4.2-5.4); White Blood Count 11.7 K/mm3 (4.4-11.0)
[2024-05-01] MEDS: Aspirin 81 MG TAB.CHEW PO (08:03)
[2024-05-01] MEDS: Enoxaparin 40 MG/0.4 ML Syringe SC ×2 (08:03→21:36)
[2024-05-01] MEDS: Menthol/Lanolin/Calamine/Znox 113 GM Tube 1 APPLIC TOPICAL ×3 (08:03→21:36)
[2024-05-01] MEDS: Carvedilol 3.125 MG TABLET PO ×2 (08:03→17:43)
[2024-05-01] MEDS: Fluticasone 0.05% 1 SPRAY NASAL.SRY NASAL (08:03)
[2024-05-01] MEDS: Nystatin Powder 15gm Bottle 1 APPLIC TOPICAL ×2 (08:04→21:35)
[2024-05-01] MEDS: Clotrimazole 1 APPLIC Tube TOPICAL ×2 (08:04→21:39)
[2024-05-01 08:12] LABS: Anion Gap 0 (5-15); BUN 18 mg/dL (7-18); BUN/Creat Ratio 40.4 RATIO (10-20); Calcium,Total 8.5 mg/dL (8.5-10.1); Chloride 99 mmol/L (98-107); Creatinine, Serum 0.45 mg/dL (0.55-1.02); EST Glomerular Filtration Rate 164 mL/min (>60); Est Glom Filt Rate - Afr Amer 199 mL/min (>60); Estimated Creatinine Clearance 213.54 ml/min; Glucose 82 mg/dL (74-106); Potassium 3.9 mmol/L (3.5-5.1); Sodium Level 142 mmol/L (136-145)
--- NOTE | 2024-05-01 12:47 | PN.HOSP_ITS ---
Reason for Visit Reason for Visit: Diagnoses Heart failure, unspecified (04/28/24) Hypoxemia (04/28/24) Subjective Subjective Saw patient at bedside this morning, mother present. Patient has had very good improvement in feet swelling especially since yesterday. Had a very good urine output over that timeframe. She and mother note that she has headaches with Bumex and apparently has not responded to Lasix as well in the past. I did tell them that we do not have IV torsemide on formulary here but with patient's improvement, we are okay to de-escalate to patient's p.o. torsemide today. If patient remains stable tomorrow, hopeful for discharge home tomorrow. Objective Data Objective Data Vital Signs: Vital Signs Temp Pulse Resp BP Pulse Ox O2 Del Method O2 Flow Rate 97.9 F 61 16 104/70 99 Nasal Cannula 4 05/01/24 08:17 05/01/24 08:17 05/01/24 08:17 05/01/24 08:17 05/01/24 11:08 05/01/24 08:30 05/01/24 11:08 FiO2 21 04/30/24 03:18 Oxygen Flow Rate (L/min) 4 Oxygen Delivery Method Nasal Cannula Weight: 137.3 kg Body Mass Index (BMI) 59.1 Intake & Output: Intake and Output for Last 24 Hours 04/29/24 04/30/24 05/01/24 23:59 23:59 23:59 Intake Total 720 / 720 120 / 120 200 / 200 Output Total 200 / 200 Balance 720 / 720 -80 / -80 200 / 200 Lab / Micro Data 05/01/24 06:59 05/01/24 06:59 Labs: Laboratory Results - last 24 hr 05/01/24 06:59: WBC 11.7 H, RBC 3.41 L, Hgb 10.7 L, Hct 36.8 L, MCV 107.9 H, MCH 31.4, MCHC 29.1 L, RDW Std Deviation 57.2 H, RDW Coeff of Denzel 14.6, Plt Count 145 L, MPV 12.0, Sodium 142, Potassium 3.9, Chloride 99, Carbon Dioxide 43.0 H, Anion Gap 0 L, BUN 18, Creatinine 0.45 L, Estim Creat Clear Calc 213.54, Est GFR (MDRD) Af Amer 199, Est GFR (MDRD) Non-Af 164, BUN/Creatinine Ratio 40.4 H, Glucose 82, Calcium 8.5 Physical Exam Const alert, oriented x3 and no apparent distress Constitutional Narrative: Middle-age female, class III obesity, mildly fatigued appearing, otherwise sitting back comfortably in bed, answering questions with short appropriate responses, in no acute distress. Stable. General Appearance: cooperative and comfortable HEENT normocephalic, head/scalp atraumatic, hearing grossly normal bilaterally, nasal mucous membranes and turbinates normal and moist oral mucous membranes Eyes PERRL, EOMs intact bilaterally and conjunctivae normal Neck full ROM Chest inspection of chest normal Resp normal respiratory effort and no use of accessory muscles Resp Narrative: Breathing comfortably on 2L NC at rest. Diminished breath sounds bilaterally throughout due to body habitus but crackles improved from yesterday. No wheezing noted. Cardio regular rate, regular rhythm, no murmurs and peripheral pulses 2+ throughout GI normal to inspection, nondistended, normoactive bowel sounds, soft to palpation, non-tender and non-distended Back/Spine normal ROM Extremity Extremity Narrative: Significant lower extremity lymphedema noted down to the ankles. +1 pitting edema noted in her feet today, much improved. Neuro moves all extremities Sensorium / Orientation: awake and alert Psych mental status grossly normal Assessment & Plan Assessment/Plan (1) Acute on chronic congestive heart failure: (2) Hypoxia: PLAN: Plan Patient is a 43-year-old female who presented [facility] ED on 04/28/2024 with shortness of breath and worsening edema. 1. 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 Patient well-known to us with multiple admissions in the past 6 months. 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 Was referred to palliative care on prior admission in February but apparently has not seen them yet. Case management placed new referral during this hospitalization. Patient with hypoxia and volume overload on admit. BMP stable from previous. Chest x-ray showed cardiomegaly and enlargement of central pulmonary arteries. Initially treated with IV Bumex 1 mg twice daily with decent urine output but minimal improvement in lower extremity and foot edema. Increased to IV Bumex 2 mg 3 times daily on 04/30 with significant improvement in swelling. Okay to de- escalate back to home p.o. torsemide 20 mg twice daily on 05/01. Will plan to complete O2 testing tomorrow morning and if patient remains stable, will plan for discharge home. Continue CPAP at night and with naps while here. Chronic medical conditions: ? Class III obesity: BMI 59 on admit. Complicates hospital course, care and prognosis. ? Prader-Willi syndrome: [facility] and plan is to go home with mother from the hospital who will then take her back [facility] the [facility]it[facility]. Continue outpatient follow-up for chronic issues related to this diagnosis. ? History of nonobstructive CAD and hypertension: Continue home aspirin and Coreg. ? Hypothyroidism: Continue home Synthroid. ? COPD: Continue home inhalers. DVT prophylaxis: Lovenox twice daily CODE STATUS: Full code, verified Expected disposition: Home, 1 to 2 days Total clinical time spent by myself addressing the patient's medical issues, reviewing all the data, and collaborating with patient's care team: 35 minutes. Charges/Coding Visit Charges Inpatient E&M: 36619 Subs Hosp L2
[2024-05-01] MEDS: Ammonium Lactate 225 gm Bottle 1 APPLIC TOPICAL (21:35)
[2024-05-02 00:55] VITALS: PULSE 58; RESP 19; O2SAT 98
[2024-05-02 02:15] VITALS: BP 120/58; PULSE 57; RESP 16; TEMP 36.6; O2SAT 100
[2024-05-02 04:21] VITALS: BMI 59.1
[2024-05-02 05:32] LABS: Anion Gap 5 (5-15); BUN 17 mg/dL (7-18); BUN/Creat Ratio 46.7 RATIO (10-20); Calcium,Total 8.4 mg/dL (8.5-10.1); Chloride 101 mmol/L (98-107); Creatinine, Serum 0.36 mg/dL (0.55-1.02); EST Glomerular Filtration Rate 208 mL/min (>60); Est Glom Filt Rate - Afr Amer 251 mL/min (>60); Estimated Creatinine Clearance 266.93 ml/min; Glucose 83 mg/dL (74-106); Potassium 4.6 mmol/L (3.5-5.1); Sodium Level 145 mmol/L (136-145)
[2024-05-02] MEDS: Levothyroxine 100 MCG Tablet PO (05:49)
[2024-05-02 07:15] VITALS: PULSE 59; RESP 22; O2SAT 95
[2024-05-02 07:35] VITALS: O2SAT 84; O2SAT 92; O2SAT 94
[2024-05-02] MEDS: Aspirin 81 MG TAB.CHEW PO (09:14)
[2024-05-02 09:16] VITALS: BP 111/72; PULSE 54; RESP 17; TEMP 36.5; O2SAT 97
--- NOTE | 2024-05-02 10:38 | DCINST_ITS ---
Discharge Instructions Diet Discharge Diet: 4000 mg Sodium Diet DC O2, CPAP, BIPAP needs Home O2 Discharge instructions: Yes Type of respiratory needs?: Oxygen Oxygen frequency: With Ambulation Oxygen liters per minute during Ambulation: 3 Dressing / Incision Discharge Activity: No Restrictions Follow Up Care Test Results: Test results from this visit will be discussed in further detail at your follow- up appointment, if applicable. Discharge Plan Admission Admit Date/Time: 04/28/24 22:26 Primary Reason for Your Visit: Shortness of breath Attending Provider: Marbin Lizama Primary Care Provider: Marilee Pérez Consulting Providers: Cinthia Torres Discharge Orders/Prescriptions Prescriptions: Continued fluticasone propionate 50 mcg/actuation spray,suspension 1 spray INTRANASAL DAILY clotrimazole 1 % cream 1 applic TOPICAL BID norethindrone (contraceptive) [Arianna] 0.35 mg tablet 0.35 mg PO QDAY Qty: 84 4RF ammonium lactate 140 GM cream 1 applicatio TOPICAL DAILY Patient Comments: skin health nystatin 1 APPLIC bottle 1 applic TOPICAL BID omega-3 fatty acids 1,000 mg capsule 1,000 mg PO DAILY aspirin 81 mg tablet,chewable 1 tab PO DAILY fluticasone furoate-vilanterol [Breo Ellipta] 100-25 mcg/dose blister with device 1 inh inhalation DAILY Certavite-Antioxidant 18-400 mg-mcg tablet 1 tab PO DAILY torsemide 10 mg tablet 20 mg PO BID Patient Comments: [NO ORIGINAL SIG] calcium carbonate [Oyster Shell Calcium] 500 mg calcium (1,250 mg) tablet 500 mg PO BID epinephrine 0.3 mg/0.3 mL auto-injector 0.3 mg IM DAILY PRN (Reason: anaphylaxis) A Thru Z Advanced Formula 18-400 mg-mcg tablet 1 tab PO DAILY Dulera 100-5 mcg/actuation HFA aerosol inhaler 2 inh inhalation BID levothyroxine 100 mcg tablet 100 mcg PO DAILY carvedilol 3.125 mg Tablet 3.125 mg PO BID Qty: 60 0RF Referrals / Follow Up: Marilee Pérez MD [Primary Care Provider] - Disposition Disposition (needs filled in before D/C Order can be placed): Home, Self Care
--- NOTE | 2024-05-02 10:39 | DS.PCM_ITS ---
Providers Date of Admission: 04/28/24 Date of Discharge: 05/02/24 Primary Care Physician: Dr. Marilee Pérez MD Reason For Visit: HF EXAC Diagnosis Discharge Diagnosis (1) Acute on chronic congestive heart failure: Status: Chronic Code(s): I50.9 - Heart failure, unspecified (2) Hypoxia: Status: Acute Code(s): R09.02 - Hypoxemia Medications at Discharge Home Medications ammonium lactate 12 % topical cream 1 applicatio topical DAILY skin 10/26/13 nystatin 100,000 unit/gram topical powder 1 applic topical BID rash 06/01/16 clotrimazole 1 % topical cream 1 applic topical BID skin 04/08/17 fluticasone propionate 50 mcg/actuation nasal spray,suspension 1 spray intranasal DAILY breathing 04/08/17 norethindrone (contraceptive) 0.35 mg tablet (Arianna) 0.35 mg PO QDAY control #84 tabs 06/02/23 levothyroxine 100 mcg tablet 100 mcg PO DAILY thyroid 12/26/23 mometasone-formoterol HFA 100 mcg-5 mcg/actuation aerosol inhaler (Dulera) 2 inh inhalation BID breathing 12/26/23 multivitamin-ferrous fumarate-folic acid 18 mg-400 mcg tablet (A Thru Z Advanced Formula) 1 tab PO DAILY vitamin 12/26/23 carvedilol 3.125 mg tablet 3.125 mg PO BID heart health #60 tabs 01/02/24 omega-3 fatty acids 1,000 mg capsule 1,000 mg PO DAILY supplement 02/17/24 aspirin 81 mg chewable tablet 1 tab PO DAILY 04/28/24 calcium carbonate (Oyster Shell Calcium) 500 mg PO BID 04/28/24 epinephrine 0.3 mg/0.3 mL injection, auto-injector 0.3 mg IM DAILY PRN anaphylaxis 04/28/24 fluticasone furoate 100 mcg-vilanterol 25 mcg/dose inhalation powder (Breo Ellipta) 1 inh inhalation DAILY 04/28/24 multivitamin-ferrous fumarate-folic acid 18 mg-400 mcg tablet (Certavite- Antioxidant) 1 tab PO DAILY 04/28/24 torsemide 10 mg tablet 20 mg PO BID 04/28/24 Hospital Course Operations None Procedures EKG and - (Chest x-ray) Summary of Care Provided Minutes Spent on Discharge: 35 Hospital Course: Patient is a 43-year-old female who presented [facility] ED on 04/28/2024 with shortness of breath and worsening edema. Hospital course as noted below. Patient discharged back to custodial in stable condition on 05/02. 1. 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 Patient well-known to us with multiple admissions in the past 6 months. 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 Was referred to palliative care on prior admission in February but apparently has not seen them yet. Case management placed new referral during this hospitalization. Patient with hypoxia and volume overload on admit. BMP stable from previous. Chest x-ray showed cardiomegaly and enlargement of central pulmonary arteries. Initially treated with IV Bumex 1 mg twice daily with decent urine output but minimal improvement in lower extremity and foot edema. Increased to IV Bumex 2 mg 3 times daily on 04/30 with significant improvement in swelling. De-escalated back to home p.o. torsemide 20 mg twice daily on 05/01. Completed O2 testing on morning of discharge and patient with no oxygen needs at rest and 3 L needed with ambulation which is consistent with her home needs prior to admission. Stable for discharge on 05/02. Continue CPAP at night and with naps on discharge. Chronic medical conditions: ? Class III obesity: BMI 59 on admit. Complicated hospital course, care and prognosis. ? Prader-Willi syndrome: Lives in custodial and plan is to go home with mother from the hospital who will then take her back to the custodial. Continue outpatient follow-up for chronic issues related to this diagnosis. ? History of nonobstructive CAD and hypertension: Continue home aspirin and Coreg. ? Hypothyroidism: Continue home Synthroid. ? COPD: Continue home inhalers. Total clinical time spent by myself addressing the patient's medical issues, reviewing all the data, and collaborating with patient's care team: 35 minutes. Physical Exam Const alert, oriented x3 and no apparent distress Constitutional Narrative: Middle-age female, class III obesity, mildly fatigued appearing, otherwise sitting back comfortably in bed, answering questions with short appropriate responses, in no acute distress. Stable. General Appearance: cooperative and comfortable HEENT normocephalic, head/scalp atraumatic, hearing grossly normal bilaterally, nasal mucous membranes and turbinates normal and moist oral mucous membranes Eyes PERRL, EOMs intact bilaterally and conjunctivae normal Neck full ROM Chest inspection of chest normal Resp normal respiratory effort and no use of accessory muscles Resp Narrative: Breathing comfortably on room air at rest. Diminished breath sounds bilaterally throughout due to body habitus but crackles improved from admission. No wheezing noted. Stable. Cardio regular rate, regular rhythm, no murmurs and peripheral pulses 2+ throughout GI normal to inspection, nondistended, normoactive bowel sounds, soft to palpation, non-tender and non-distended Back/Spine normal ROM Extremity Extremity Narrative: Significant lower extremity lymphedema noted down to the ankles. +1 pitting edema noted in her feet, much improved from admission. Neuro moves all extremities Sensorium / Orientation: awake and alert Psych mental status grossly normal Weight / BMI Weight Weight: 137.3 kg Body Mass Index (BMI) 59.1 ABG / Lab / Microbiology Data 05/01/24 06:59 05/02/24 03:58 Laboratory: Laboratory Results - last 24 hr 05/02/24 03:58: Sodium 145, Potassium 4.6, Chloride 101, Carbon Dioxide 40.0 H, Anion Gap 5, BUN 17, Creatinine 0.36 L, Estim Creat Clear Calc 266.93, Est GFR (MDRD) Af Amer 251, Est GFR (MDRD) Non-Af 208, BUN/Creatinine Ratio 46.7 H, Glucose 83, Calcium 8.4 L D/C Instructions DC O2, CPAP, BIPAP Needs PSN CPAP & BiPAP: BiPAP & CPAP Settings per PSN Mode CPAP 05/02/24 07:15 Bipap Delivery Device Face Mask 05/02/24 07:15 BiPAP Expiratory Pressure 10 05/02/24 07:15 Fraction of Inspired Oxygen ( 21 04/30/24 03:18 FIO2) Total Flow Rate 4 05/02/24 07:15 Home O2 Discharge instructions: No Meaningful Use Info Meaningful Use Meaningful Use Diagnoses (Choose all that apply): CHF CHF TYLER/ARB ordered at discharge?: No Reason TYLER/ARB not ordered?: Hypotension Documented LVEF (%): 60 Ischemic Stroke Statin Dosing Therapy Reference: STATIN DOSE THERAPY REFERENCE: * Patients > 75 years receive moderate or high dose statin therapy. * Patients 75 years or YOUNGER should receive HIGH intensity statin dose unless contraindicated. You will be required to document reason for non-treatment if statin daily dose does not meet guidelines. HIGH DOSE STATIN THERAPY DAILY Atorvastatin > than or = to 40 mg Rosuvastatin > than or = to 20 mg Amlodipine + Atorvastatin > than or = to 2.5/40 mg Ezetimibe + Simvastatin 10/80 mg Simvastatin 80mg Discharge Plan Admission Admit Date/Time: 04/28/24 22:26 Attending Provider: Marbin Lizama Primary Care Provider: Marilee Pérez Consulting Providers: Cinthia Torres Discharge Orders/Prescriptions Prescriptions: No Action fluticasone propionate 50 mcg/actuation spray,suspension 1 spray INTRANASAL DAILY clotrimazole 1 % cream 1 applic TOPICAL BID norethindrone (contraceptive) [Arianna] 0.35 mg tablet 0.35 mg PO QDAY Qty: 84 4RF ammonium lactate 140 GM cream 1 applicatio TOPICAL DAILY Patient Comments: skin health nystatin 1 APPLIC bottle 1 applic TOPICAL BID omega-3 fatty acids 1,000 mg capsule 1,000 mg PO DAILY aspirin 81 mg tablet,chewable 1 tab PO DAILY fluticasone furoate-vilanterol [Breo Ellipta] 100-25 mcg/dose blister with device 1 inh inhalation DAILY Certavite-Antioxidant 18-400 mg-mcg tablet 1 tab PO DAILY torsemide 10 mg tablet 20 mg PO BID Patient Comments: [NO ORIGINAL SIG] calcium carbonate [Oyster Shell Calcium] 500 mg calcium (1,250 mg) tablet 500 mg PO BID epinephrine 0.3 mg/0.3 mL auto-injector 0.3 mg IM DAILY PRN (Reason: anaphylaxis) A Thru Z Advanced Formula 18-400 mg-mcg tablet 1 tab PO DAILY Dulera 100-5 mcg/actuation HFA aerosol inhaler 2 inh inhalation BID levothyroxine 100 mcg tablet 100 mcg PO DAILY carvedilol 3.125 mg Tablet 3.125 mg PO BID Qty: 60 0RF Referrals / Follow Up: Marilee Pérez MD [Primary Care Provider] - Charges/Coding Visit Charges Inpatient E&M: 09925 Disch Hosp >30min
[2024-05-02] MEDS: Enoxaparin 40 MG/0.4 ML Syringe SC (10:46)
[2024-05-02] MEDS: Fluticasone 0.05% 1 SPRAY NASAL.SRY NASAL (10:47)
[2024-05-02] MEDS: Menthol/Lanolin/Calamine/Znox 113 GM Tube 1 APPLIC TOPICAL (10:48)
[2024-05-02] MEDS: Nystatin Powder 15gm Bottle 1 APPLIC TOPICAL (10:48)
[2024-05-02] MEDS: Clotrimazole 1 APPLIC Tube TOPICAL (10:48)
[2024-05-02 12:59] VITALS: O2SAT 94
--- NOTE | 2024-05-02 13:55 | NURSING ---
report called to Shaunna at [phone]
== END 2024-05-02 15:23 | disposition home or self-care (01) | DRG 291 ==
LOC: ED 22:50 → PCU 04-29 02:20 → MS2 04-29 14:20 → PCU 04-30 16:40
PROVIDERS: Admitting Provider Family Medicine; Emergency Provider Emergency Medicine; PCP Internal Medicine; Visit Provider Hospitalist
DX: I11.0 Hypertensive heart disease with heart failure (principal); I50.33 Acute on chronic diastolic (congestive) heart failure; Z68.44 Body mass index [BMI] 60.0-69.9, adult; I27.20 Pulmonary hypertension, unspecified; Z99.81 Dependence on supplemental oxygen; J44.9 Chronic obstructive pulmonary disease, unspecified; E03.9 Hypothyroidism, unspecified; I25.10 Atherosclerotic heart disease of native coronary artery without angina pectoris; G47.33 Obstructive sleep apnea (adult) (pediatric); J30.9 Allergic rhinitis, unspecified; Z79.890 Hormone replacement therapy; R09.02 Hypoxemia; Z95.5 Presence of coronary angioplasty implant and graft; Z79.51 Long term (current) use of inhaled steroids; Z79.82 Long term (current) use of aspirin; E66.813 Obesity, class 3; Z79.899 Other long term (current) drug therapy
CPT/HCPCS: 36415; 71046; 80048; 80053; 80061; 81001; 83735; 83880; 84443; 84484; 85025; 85027; 93005; 94640; 94660; 94668; 94760; 97116; 97163; 97166; 97530; 99284; A4216; J1940

== ENCOUNTER → 2024-08-09 | Outpatient (REF) | payer MEDICARE, MEDICAID, SELFPAY ==
[2024-08-09 08:47] LABS: Anion Gap 9 (5-15); BUN 14 mg/dL (4-19); BUN/Creat Ratio 29.1 RATIO (10-20); Carbon Dioxide 35.4 mmol/L (21.0-32.0); Chloride 94 mmol/L (98-108); Creatinine, Serum 0.46 mg/dL (0.70-1.20); EST Glomerular Filtration Rate 122 (>60); Glucose 74 mg/dL (70-99); Potassium 4.2 mmol/L (3.3-5.1); Sodium Level 138 mmol/L (133-145)
== END ==
LOC: OLS.SW 04:00
PROVIDERS: PCP Internal Medicine; Referring Provider Internal Medicine; Visit Provider Internal Medicine
DX: I50.9 Heart failure, unspecified (principal); J96.01 Acute respiratory failure with hypoxia; Q87.11 Prader-Willi syndrome; I27.20 Pulmonary hypertension, unspecified
CPT/HCPCS: 36415; 80048

== ENCOUNTER → 2024-08-16 05:00 | Outpatient (REF) | payer MEDICARE, MEDICAID, SELFPAY ==
--- OUTSIDE RECORDS SUMMARY | 2024-08-16 04:43 | XMS RPT_ITS | CCD ---
Author Organization [facility] Care Team Providers Care Curriculum Consultant Name Role Phone IMCA Unavailable Unavailable RICKI HIRSCH Unavailable Unavailable Smita Salgado Unavailable Unavailable Marilee Thakur Unavailable Unavailable Lexus Jackson Unavailable Unavailable Marilee Thakur Unavailable Marilee Thakur MD Primary Care Provider Marilee Thakur MD Primary Care Provider Marilee Thakur MD Primary Care Provider Dr. Marilee Thakur Primary Care Provider Dr. Marilee Thakur Referring Provider Po INDUSTRIAL LABORER, INDUSTRIAL LABORER-C Cecilia Attending Provider Dr. Marilee Thakur Primary Care Provider Dr. Marilee Thakur Referring Provider Po INDUSTRIAL LABORER, INDUSTRIAL LABORER-C Cecilia Attending Provider Marilee Thakur MD Primary Care Provider DR MARILEE THAKUR MD Primary Care Physician Larry ARREGUIN, Martell Unavailable [phone] Marilee Thakur MD Primary Care Provider Isi Goodman MD Unavailable [phone] Anna ARREGUIN, Bradley Plascencia Unavailable [phone] Daniel JAMES, Aaliyah L Unavailable [phone] Older WAXER TENDER.MANAGER HOTEL, Mika Unavailable Catracho JAMES, Maria Luisa Unavailable Anna ARREGUIN, Bradley Plascencia Unavailable Anna RN, Bradley Thais Unavailable [phone] GANTA, MARILEE LUDIN Primary Care Unavailable GANTA, MARILEE LUDIN Primary Care Unavailable Maxine FERNANDES, Isi Russell Unavailable [phone] KATALINA FERNANDES, JAMILA Attending Unavailable BLAZE FERNANDES, DR MARILEE Flores Primary Care Unavaillidia DARDEN MD, JAMILA Attending Unavailable BLAZE FERNANDES, DR MARILEE Flores Primary Care UnavailTABATHA Willams DO Attending Unavailable BLAZE FERNANDES, DR MARILEE Flores Primary Care Unavaillidia WEST MD, NOEMI James Consulting Unavailable BLAZE FERNANDES, DR MARILEE Flores Primary Care UnavailLONG Daniels MD Attending Unavailable Tirado, Teresa S Unavailable Unavailable MAXINEISI R Attending Unavailable HEATH MOHAMUDRAT Referring Unavailable GANTA, MARILEE LUDIN Primary Care Unavailable MAXINE, ISI R Referring Unavailable GANTA, MARILEE LUDIN Primary Care Unavailable MAXINETANAUA R Attending Unavailable MAXINE, ISI R Referring Unavailable GANTA, MARILEE LUDIN Primary Care Unavailable MAXINETERESA SEGALSHUA R Attending Unavailable GANTA, MARILEE LUDIN Primary Care Unavailable MISTY HADDAD DO Attending Unavailable PATITO JEFFRIES MD Consulting Unavailable NOEMI WEST MD Admitting Unavailable MAVIS MASON MD Consulting Unavailable EPI FERNÁNDEZ DO Consulting Unavailable PIETER FERNANDES, FRANKLYN Consulting Unavailable TOM NINA MD Consulting Unavailable LALITA FERNANDES, DR GOTTLIEB Consulting Unavailable NOEMI WEST MD Consulting Unavailable JOHANA MOREIRA MD Consulting Unavailable CHEMO LOPEZ MD Consulting Unavailable DEJA FERNANDES, DR SALAS Consulting Unavailab Rosangela FERNANDES, ARNI L Consulting Unavailable KAYLAN LUGO MD Consulting Unavailable PIETER FERNANDES, FRANKLYN Attending Unavailable PIETER FERNANDES, FRANKLYN Admitting Unavailable Daniel JAMES, Aaliyah L Unavailable Catracho JAMES, Maria Luisa Unavailable TERESA MOHAMUD Attending Unavailable GANTA, MARILEE LUDIN Primary Care Unavailable MIKAYLA NAVA I Attending Unavailable GANTA, MARILEE LUDIN Primary Care Unavailable KEELY ORDONEZ Attending Unavailable CHENBHANICH, JIT Referring Unavailable GANTA, MARILEE LUDIN Primary Care Unavailable HILDA JEONG Attending Unavailable GANTA, MARILEE Primary Care Unavailable GANTA, MARILEE Referring Unavailable GANTA, MARILEE Primary Care Unavailable OLDER, MIKA Attending Unavailable GANTA, MARILEE Primary Care Unavailable RAJESH CORONA Attending Unavailable GANTA, MARILEE Primary Care Unavailable GANTA, MARILEE Attending Unavailable GANTA, MARILEE Primary Care Unavailable OLDER, MIKA Referring Unavailable GANTA, MARILEE Primary Care Unavailable GANTA, MARILEE Attending Unavailable GANTA, MARILEE Primary Care Unavailable GANTA, MARILEE Attending Unavailable GANTA, MARILEE Primary Care Unavailable GANTA, MARILEE Attending Unavailable GANTA, MARILEE Primary Care Unavailable OLDER, MIKA Referring Unavailable GANTA, MARILEE Primary Care Unavailable OLDER, MIKA Attending Unavailable GANTA, MARILEE Primary Care Unavailable OLDER, MIKA Attending Unavailable GANTA, MARILEE Primary Care Unavailable OLDER, MIKA Referring Unavailable GANTA, MARILEE Primary Care Unavailable Gudla, Tia Primary Care Unavailable Gudla, Tia Attending Unavailable Gudla, Tia Referring Unavailable Gudla OLS, Tia Attending Unavailable Gudla, Tia Primary Care Unavailable Magnolia Cullen Attending Unavailable Cindy Collier Admitting Unavailable Ganta, Marilee Primary Care Unavailable Carroll, [place] Consulting Unavailable Collier, Cindy Consulting Unavailable Jarrod, Manuel Consulting Unavailable Magnolia Cullen Admitting Unavailable Leon Arias Consulting Unavailable Magnolia Cullen Attending Unavailable Ganta, Marilee Primary Care Unavailable White, Cinthia L Consulting Unavailable Jopperi, Manuel Attending Unavailable White, Cinthia L Admitting Unavailable Ganta, Marilee Primary Care Unavailable Tereletsky, Jagdeep Consulting Unavailable White, Cinthia L Consulting Unavailable White, Cinthia L Attending Unavailable White, Cinthia L Admitting Unavailable Ganta, Marilee Primary Care Unavailable Kayky Jagdeep Attending Unavailable Tereletsky, Jagdeep Consulting Unavailable Subhash, Magnolia Admitting Unavailable Subhash, Magnolia Attending Unavailable [facility] Primary Care Unavailable Leon Arias Consulting Unavailable Magnolia Cullen Consulting Unavailable [facility]available Lori Lowery Attending Unavailable [facility] Primary Care Unavailable Tori Rossi Attending Unavailable Gudla OLS, Tia Attending Unavailable [facility] Primary Care Unavailable Gudla OLS, Tia Attending Unavailable [facility] Primary Care Unavailable Gudla OLS, Tia Referring Unavailable Gudla OLS, Tia Attending Unavailable [facility] Primary Care Unavailable Gudla OLS, Tia Attending Unavailable [facility] Primary Care Unavailable Gudla OLS, Tia Attending Unavailable [facility] Primary Care Unavailable Gudla OLS, Tia Attending Unavailable [facility] Primary Care Unavailable [facility] Primary Care Unavailable Lori Lowery Attending Unavailable [facility] Primary Care Unavailable Corrine Figueroa Attending Unavailable [facility] Referring Unavailable Hiral Hansen Attending Unavailable [facility] Primary Care Unavailable [facility] Referring Unavailable Marbin Lizama Attending Unavailable White, Cinthia L Admitting Unavailable White, Cinthia L Consulting Unavailable [facility] Primary Care Unavailable Cindy Collier Referring Unavailable Fran Hodges Attending Unavailable [facility] Primary Care Unavailable Marbin Lizama Attending Unavailable White, Cinthia L Admitting Unavailable White, Cinthia L Consulting Unavailable [facility] Primary Care Unavailable Marbin Lizama Consulting Unavailable Nando Cindy Admitting Unavailable Cindy Collier Attending Unavailable [facility] Primary Care Unavailable Carroll, [place] Consulting Unavailable Nando Cindy Consulting Unavailable White, Cinthia L Attending Unavailable [facility], Marilee Primary Care [facility] Unavailable Esther Bond Attending Unavailable Esther Bond Consulting Unavailable White, Cinthia L Admitting Unavailable White, Cinthia L Consulting Unavailable Koram, Malorie Genevieve Consulting Unavailable Marthaam, Malorie Genevieve Attending Unavailable Manuel Garay Attending Unavailable Yan Phelps Consulting Unavailable Yolanda, Dami Consulting Unavailable Regino Bo Consulting Unavailable Praveen Cavazos Consulting Unavailable Mikey Hebert Consulting Unavailable Amilcar Romero Consulting Unavailable Yahaira Erwin Consulting Unavailab le Dand, Fabián Consulting Unavailable Harrington, Jann Consulting Unavailable Jigar, Luz Consulting Unavailable Aljundi, Lamia Consulting Unavailable Washington, Dave Consulting Unavailable Irukulla, Carter Consulting Unavailable Jeff, Brian Consulting Unavailable Farhana Max Consulting Unavailable , Merrill Consulting Unavailable Sagar Garner Consulting Unavailable Manuel Garay Consulting Unavailable Mostheidy, Marbin Consulting Unavailable Alda, Marbin Admitting Unavailable Manuel Garay Attending Unavailable [facility] Primary [facility] Unavailable Manuel Garay Attending Unavailable Jarrod, Manuel Consulting Unavailable Marbin Lizama Attending Unavailable White, Cinthia L Attending Unavailable White, Cinthia L Admitting Unavailable White, Cinthia L Consulting Unavailable [facility] Primary Care Unavailable Jarrod, Manuel Consulting Unavailable Cindy Collier Admitting Unavailable Manuel Garay Attending Unavailable [facility] Primary Care Unavailable Fran Hodges Consulting Unavailable Cindy Collier Consulting Unavailable Jarrod, Manuel Consulting Unavailable Fran Hodges Attending Unavailable Magnolia Cullen Consulting Unavailable Leon Arias Attending Unavailable [facility] Primary Care Unavailable Manuel Garay Attending Unavailable Esther Bond Consulting Unavailable White, Cinthia L Admitting Unavailable White, Cinthia L Consulting Unavailable Malorie Siegel Consulting Unavailable Yan Phelps Consulting Unavailable Dami Guerrero Consulting Unavailable Regino Bo Consulting Unavailable Praveen Cavazos Consulting Unavailable Mikey Hebert Consulting Unavailable Nick, Amilcar Consulting Unavailable HabteYahaira springer Consulting Unavailab malissa Walter, Fabián Consulting Unavailable Harrington, Jann Consulting Unavailable Jigar, Luz Consulting Unavailable Aljundi, Lamia Consulting Unavailable Washington, Dave Consulting Unavailable Irukulla, Carter Consulting Unavailable Jeff, Brian Consulting Unavailable Farhana aMx Consulting Unavailable , Merrill Consulting Unavailable Sagar Garner Consulting Unavailable Alda Marbin Consulting Unavailable Alda, Marbin Admitting Unavailable [facility], Marilee Primary Care Unavailable Manuel Garay Attending Unavailable Hiral Hansen Referring Unavailable [facility], Marilee Primary Care Unavailable Hiral Hansen Attending Unavailable Hiral Hansen Attending Unavailable [facility], Marilee Primary Care Unavailable Ganta, Marilee Referring Unavailable Hiral Hansen Attending [facility] Primary [facility] Unavailable Ganta, Marilee Referring Unavailable Leon Arias Consulting Unavailable Leon Arias Admitting Unavailable Magnolia Cullen Attending Unavailable [facility] Primary Care Unavailable Magnolia Cullen Consulting Unavailable Magnolia Cullen Attending Unavailable [facility] Primary Care Unavailable Fran Hodges Attending Unavailable Tia Clark Attending Unavailable [facility] Care Unavailable Allergies Allergy Classification Reported Allergen(s) Allergy Type Date of Onset Reaction(s) Facility Anti-Epileptic Agents (1 source) Phenytoin Drug Allergy 6 [facility] (20 sources) phenytoin; Translations: [PHENYTOIN SODIUM EXTENDED] Drug Allergy 6 Unknown [facility] (1 source) OTHER; Translations: [OTHER] Propensity to adverse reactions (disorder) [facility] (20 sources) apis mellifera venom; Translations: [BEE STING] allergy to substance 3 Anaphylaxis [facility] Work Phone: (20 sources) BEES,WASPS [Other] Propensity to adverse reactions 6 Swelling [facility] Work Phone: (20 sources) mosquitoes [Other] Propensity to adverse reactions 6 [facility] (3 sources) Phenytoin; Translations: [phenytoin sodium] Drug Allergy 3 Unknown [facility] (3 sources) insect venom; Translations: [insect venom] Allergy to substance 3 Itching [facility] (2 sources) venom-honey bee Allergy to substance 3 Unknown [facility] (4 sources) Bee/Wasp/Ant venom Allergy to substance [facility] (12 sources) Phenytoin; Translations: [phenytoin] Drug Allergy 6 Unknown [facility] (4 sources) misc non-codified allergy Allergy to substance [facility] (20 sources) Bumetanide; Translations: [BUMETANIDE] Drug Allergy 5 Diarrhea, Other: See Comments [facility] (1 source) venom-honey bee Drug allergy (disorder) 5 [facility] Medications Current Medications Medication Drug Class(es) Dates Sig (Normalized) Sig (Original) acetaminophen 650 mg oral tablet (20 sources) Start: 05-30-2024 acetaminophen Dose : 650 mg = 2 tab(s), Oral, q6h, PRN Pain, scale 1-3, 0 Refill(s) Start Date: 05/30/24 Status: Ordered Repeat number: 1 Start: 03-21-2022 take 2 tablets by mo uth every eight hours as needed acetaminophen (TYLENOL EXTRA STRENGTH) 500 mg tablet Take 2 tablets by mouth every 8 hours as needed for pain (For knee pain). 30 tablet 5 03/21/2022 Active Start: 05-10-2019 take 500-1000 mg by mouth every six hours as needed Acetaminophen Active 500 - 1000 MG PO EVERY 6 HOURS NEEDED May 10, 2019 10:11pm Comment on above: Take 2 tablets by mo uth every 8 hours as needed for pain (For knee pain). [id number] 200 actuat albuterol 0.09 mg/actuat metered dose [...] of breath. 1 Each 3 05/30/2021 Active Start: 05-22-2021 take 1 puff(s) by in halation every six hours Albuterol Sulfate Active 2 PUFF INHALATION EVERY 6 HOURS May 22, 2021 12:00am Start: 12-09-2012 End: 02-08-2013 take 2.5 mg by inhalation twice daily Albuterol Sulfate Discontinued 2.5 MG INHALATION TWICE A DAY December 09, 2012 12:00am February 08, 2013 9:28am Comment on above: Inhale 2 Puffs as in structed every 4 hours as needed for wheezing/shortness of breath. aspirin 81 mg delayed release oral tablet (20 sources) Platelet Aggregation Inhibitor, Nonsteroidal Anti-inflammatory Drug Start: 05-13-2024 aspirin 81 mg oral delayed release tablet Dose : 81 mg = 1 tab(s), Oral, Daily, 0 Refill(s) Start Date: 05/13/24 Status: Ordered Repeat number: 1 take 1 tablet by mouth once mallory y aspirin 81 mg chewable tablet Take 81 mg by mouth once daily. Active atorvastatin 20 mg oral tablet (1 source) HMG-CoA Reductase Inhibitor Start: 05-30-2024 atorvastatin 20 mg oral tablet Dose : 20 mg = 1 tab(s), Oral, Daily, # 30 tab(s), 0 Refill(s) Start Date: 05/30/24 Status: Ordered Quantity: 30.0 Unit: tab(s) Repeat number: 1 atropine sulfate 0.025 mg / diphenoxylate hydrochloride 2.5 mg oral tablet (20 sources) Anticholinergic, Cholinergic Muscarinic Antagonist, Antidiarrheal take 1 tablet by mouth every six hours as needed diphenoxylate-atr opine (LOMOTIL) 2.5-0.025 mg per tablet Take 1 tablet by mouth four times a day as needed. Active budesonide 0.125 mg/ml inhalation suspension (1 source) Corticosteroid Start: 05-30-2024 End: 06-29-2024 take 1 dose by inhalation twice daily budesonide 0.25 mg/2 mL inhalation suspension Dose : 0.25 mg = 2 mL, Inhalation, BID, # 120 mL, 0 Refill(s) Start Date: 05/30/24 Stop Date: 06/29/24 Status: Ordered Quantity: 120.0 Unit: mL Repeat number: 1 Budesonide / formoterol (20 sources) Corticosteroid, beta2-Adrenergic Agonist Start: 04-02-2023 End: 07-09-2023 take 2 puff(s) by mouth twice daily budesonide-formot letty (SYMBICORT) 160-4.5 mcg/actuation inhaler INHALE 2 PUFFS [...] Start: 08-15-2021 take 2 puff(s) by mo ut twice [...] Start: 08-21-2020 take 2 puff(s) by mo uth twice daily budesonide-formoterol (SYMBICORT) 160-4.5 mcg/actuation inhaler INHALE 2 PUFFS BY MOUTH TWICE DAILY ( INSTRUCTED ) *SHAKE WELL, RINSE MOUTH AFTER USE* 10.2 g 11 08/21/2020 Active Start: 06-01-2015 End: 05-04-2024 take 2 puff(s) by inhalation twice daily Symbicort 160-4.5 mcg/actuation inhaler Inhale 2 puffs 2 times a day. 06/01/2015 05/04/2024 Discontinued (Med List Cleanup) Start: 09-30-2014 take 1 puff(s) by in halation twice daily Budesonide-Formoterol Active 2 PUFF INHALATION TWICE A DAY September 30, 2014 12:00am Comment on above: INHALE 2 PUFFS BY MO UTH TWICE DAILY ( INSTRUCTED ) *SHAKE WELL, RINSE MOUTH AFTER USE* INHALE 2 PUFFS BY MO UTH TWICE DAILY ( INSTRUCTED) *SHAKE WELL bumetanide 1 mg oral tablet (8 sources) Loop Diuretic Start: 05-30-2024 End: 06-29-2024 bumetanide 1 mg oral tablet Dose : 1 mg = 1 tab(s), Oral, BID, # 60 tab(s), 0 Refill(s) Start Date: 05/30/24 Stop Date: 06/29/24 Status: Ordered Quantity: 60.0 Unit: tab(s) Repeat number: 1 Start: 01-14-2024 End: 01-28-2024 take 1 tablet by mouth once daily bumetanide (BUMEX) 1 mg tablet Take 1 tablet by mouth once daily for 10 days. 5 tablet 1 01/14/2024 01/28/2024 Discontinued (Course of therapy completed) calcium carbonate 500 mg chewable tablet (3 sources) Start: 05-13-2024 calcium carbon ate 500 mg (200 mg elemental calcium) oral tablet, chewable Dose : 500 mg = 1 tab(s), Chewed, BID, # 60 tab(s), 0 Refill(s) Start Date: 05/13/24 Status: Ordered Quantity: 60.0 Unit: tab(s) Repeat number: 1 Start: 12-09-2012 End: 02-08-2013 take 1000 mg by mouth once daily Calcium Carbonate Discontinued 1000 MG PO DAILY@0800 December 09, 2012 12:00am February 08, 2013 9:28am calcium carbonate 1250 mg / cholecalciferol 200 unt oral tablet (20 sources) Vitamin D Start: 06-01-2015 End: 05-20-2024 take 1 tablet by mouth twice daily at mealtime rngwgli-dduptfumi-fcjagyq D3 (OYSTER SHELL CALCIUM-VITAMIN D) 500 mg-5 mcg (200 unit) per tablet Take 1 tablet by mouth two times a day with meals. 62 tablet 11 05/20/2024 Active Start: 10-26-2013 Calcium Carbon ate-Vitamin D3 Active 1 EACH PO TWICE A DAY October 26, 2013 12:00am Comment on above: Take 1 tablet by erin twice daily with meals. Take 1 tablet by erin th two times a day with meals. carvedilol 3.125 mg oral tablet (20 sources) alpha-Adrenergic Rubi, beta-Adrenergic Rubi Start: 01-12-20 End: 01-12-20 take 1 tablet by mouth twice daily carvedilol (COREG) 3.125 mg tablet Take 1 tablet by mouth two times a day. 180 tablet 3 01/12/2024 01/11/2025 Active cephalexin 500 mg oral tablet (1 source) Cephalosporin Antibacterial Start: 05-09-19 End: 05-19-19 cephalexin 500 mg oral tablet Dose : 500 mg = 1 tab(s), PO, QID, X 10 day(s), # 40 tab(s), 0 Refill(s), 05/18/24 12:31:00 PM EDT Start Date: 05/08/24 Stop Date: 05/18/24 Status: Ordered Quantity: 40.0 Unit: tab(s) Repeat number: 1 Certavite-Antioxidant 18-400 mg-mcg tablet (5 sources) Start: 06-01-19 take 1 tablet by mouth once daily Certavite-Antioxidan t 18-400 mg-mcg tablet Take 1 tablet by mouth once daily. 06/01/2015 Active cetirizine hydrochloride 10 mg oral tablet (20 sources) Histamine-1 Receptor Antagonist Start: 11-18-19 take 1 tablet by mouth once daily cetirizine (ZYRTEC) 10 mg tablet Indications: Rash Take 1 tablet by mouth once daily. 150 tablet 11/18/2019 Active Comment on above: Take 1 tablet by erin once daily. clotrimazole 10 mg/ml topical cream (20 sources) Azole Antifungal Start: 05-14-19 clotrimazole 1% topical cream Apply 1 cristian, Topical, BID, # 12 gram(s), 0 Refill(s), Cream, 143 Start Date: 05/13/24 Status: Ordered Quantity: 12.0 Unit: g Repeat number: 1 Start: 02-28-2023 clotrimazole ( LOTRIMIN) 1 % cream Indications: Yeast dermatitis APPLY TOPICALLY TO AFFECTED AREA(S) ON BILATERAL GROIN TWICE DAILY 30 g 10 02/28/2023 Active Start: 02-28-2023 clotrimazole ( Lotrimin) 1 % cream APPLY TOPICALLY TO AFFECTED AREA(S) ON BILATERAL GROIN TWICE DAILY 02/28/2023 Active Start: 01-26-2021 clotrimazole ( LOTRIMIN, CLOTRIM) 1 % cream APPLY TOPICALLY TO AFFECTED AREA(S) ON BILATERAL GROIN TWICE DAILY 30 g 10 01/26/2021 Active Start: 06-01-2016 End: 04-08-2017 Clotrimazole Active 1 APPLIC TOPICAL TWICE A DAY April 08, 2017 1:00am Comment on above: APPLY TOPICALLY TO A [...] 09-16-2016 COMPOUNDED PRE SCRIPTION Indications: Prader-Willi syndrome (HCC) , Other diseases of lung, not elsewhere classified Pt's body checks to be completed once weekly during the day. 1 Each 09/16/2016 Active Start: 09-16-2016 COMPOUNDED PRE SCRIPTION Indications: Prader-Willi syndrome , Other diseases of lung, not elsewhere classified Pt's body checks to be completed once weekly during the day. 1 Each 09/16/2016 Active Start: 07-13-2015 COMPOUNDED PRE SCRIPTION Indications: Prader-Willi syndrome (HCC) Weight check q Sun at 8pm and q Fri at 4pm Dx:Q87.1 1 Each 99 07/13/2015 Active Start: 07-13-2015 COMPOUNDED PRE SCRIPTION Indications: [...] Edema 8am for 2 pairs per year docosahexaenoic acid 120 mg / eicosapentaenoic acid 180 mg oral capsule (13 sources) Start: 06-01-19 16 take 1 capsule by mouth once daily fish oil concentrate (Gurdon-3) 120-180 mg capsule Take 1 capsule (1 g) by mouth once daily. 06/01/2015 Active Start: 06-01-2015 take 1 capsule by mo [facility] once daily Fish Oil 1000 MG Oral Capsule TAKE 1 CAPSULE DAILY. Quantity: 0 Refills: 0 Ordered: 01-Jun-2015 DO Start : 01-Jun-2015 Active docusate sodium 50 mg / sennosides, long-term 8.6 mg oral tablet (1 source) Start: 05-30-2024 take 1 tablet by mouth twice daily Senokot S 50 mg-8.6 mg oral tablet Dose = 1 tab(s), Oral, BID, # 60 tab(s), 0 Refill(s) Start Date: 05/30/24 Status: Ordered Quantity: 60.0 Unit: tab(s) Repeat number: 1 doxycycline hyclate 100 mg oral tablet (3 sources) Tetracycline-class Drug Start: 11-13-2023 End: 11-23-2023 take 1 tablet by mouth twice daily doxycycline (VIBRA-TABS) 100 mg tablet Indications: Cellulitis of left lower extremity Take 1 tablet by mouth two times a day for 10 days. 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 , Bee allergy status INJECT 1 PEN INTO LATERAL THIGH DIRECTED FOR ALLERGIC REACTIONS TO BEE/WASP STINGS MAY REPEAT IN 5-15 MINUTES IF SYMPTOMS PERSIST * *STAFF REORDER, 4 DAYS IN ADVANCE* 2 Each 1 03/12/2024 Active Start: 06-01-2015 EpiPen 2-Jerome 0 .3 [...] dose nasal spray (20 sources) Corticosteroid Start: 05-14-19 take 50 ug nasal route once daily in the morning fluticasone proprionate NASAL 50 mcg/ spray 50 mcg Dose = 1 spray(s), Nostril, each, qAM, 0 Refill(s) Start Date: 05/13/24 Status: Ordered Repeat number: 1 Start: 08-21-2020 End: 02-09-2024 take 2 spray(s) nasal route once daily fluticasone (FLONASE) 50 mcg/actuation nasal spray INSTILL 2 SPRAYS IN EACH NOSTRIL DAILY 16 g 10 02/09/2024 Active Start: 04-08-2017 Fluticasone Pr opionate Active 50 MCG INTRANASAL ONCE April 08, 2017 1:00am Start: 10-17-2014 take 2 spray(s) nasa l route once daily fluticasone (Flonase) 50 mcg/actuation nasal spray Administer 2 sprays into each nostril once daily. 10/17/2014 Active Start: 10-17-2014 take 2 spray(s) nasa l route once daily Fluticasone Propionate 50 MCG/ACT Nasal Suspension instill 2 sprays into each nostril once daily Quantity: 16 Refills: 0 Ordered: 02-Nov-2014 DO Start : 17-Oct-2014 Active Start: 10-26-2013 End: 04-08-2017 Fluticasone Propionate Disco ntinued 2 SPRAY NASAL DAILY October 26, 2013 12:00am April 08, 2017 10:35am Comment on above: INSTILL 2 SPRAYS IN EACH NOSTRIL DAILY *SHAKE GENTLY BEFORE USING* INSTILL 2 SPRAYS IN EACH NOSTRIL DAILY 14 actuat fluticasone furoate 0.1 mg/actuat / vilanterol 0.025 mg/actuat dry powder inhaler (12 sources) Corticosteroid, beta2-Adrenergic Agonist Start: 5 take 1 dose by inhalation once daily fluticasone-vilantero l (BREO ELLIPTA) 100-25 mcg/dose inhaler Indications: Mild intermittent asthma without complication (HCC) Inhale 1 Inhalation as instructed once daily. 1 Each 3 04/09/2024 Active 60 actuat formoterol fumarate 0.005 mg/actuat / mometasone furoate 0.1 mg/actuat metered dose inhaler (20 sources) Corticosteroid, beta2-Adrenergic Agonist Start: take 2 puff(s) by inhalation twice daily mometasone-formoterol (DULERA) 100-5 mcg/actuation inhaler Inhale 2 Puffs as instructed two times a day. 13 g 10 02/09/2024 Active Start: 07-09-2023 take 2 puff(s) by mo uth twice daily Dulera 100-5 mcg/actuation inhaler INHALE 2 PUFFS BY MOUTH TWICE DAILY ( INSTRUCTED) 07/09/2023 Active Start: 07-09-2023 End: 02-09-2024 take 2 puff(s) by mouth twice daily DULERA 100-5 mcg/actuation inhaler INHALE 2 PUFFS BY MOUTH TWICE DAILY ( INSTRUCTED) 13 g 10 07/09/2023 02/09/2024 Discontinued Start: 05-29-2023 End: 07-09-2023 take 2 puff(s) by inhalation twice daily mometasone-formoterol (DULERA) 100-5 mcg/actuation inhaler Inhale 2 Puffs as instructed two times a day. 13 g 1 05/29/2023 07/09/2023 Discontinued Comment on above: Inhale 2 Puffs as in structed two times a day. furosemide 40 mg oral tablet (20 sources) Loop Diuretic Start: End: take 1 tablet by mouth twice daily furosemide (LASIX) 40 mg tablet Take 1 tablet by mouth two times a day. 180 tablet 1 01/12/2024 01/28/2024 Discontinued (Cost of medication) Start: 12-12-2023 End: 01-28-2024 take 1 tablet by mouth once daily furosemide (LASIX) 40 mg tablet Take 1 tablet by mouth once daily. 30 tablet 11 01/08/2024 01/28/2024 Discontinued (Course of therapy completed) Start: 02-05-2023 End: 01-08-2024 take 1 tablet by mouth every other day furosemide (LASIX) 20 mg tablet Indications: Lymphedema TAKE ONE TABLET BY MOUTH EVERY OTHER DAY FOR LYMPHEDEMA 30 tablet 11 11/18/2023 01/08/2024 Discontinued Start: 02-05-2021 End: 02-06-2022 take 1 tablet by mouth every other day furosemide (LASIX) 20 mg tablet Indications: Lymphedema TAKE ONE TABLET BY MOUTH EVERY OTHER DAY FOR LYMPHEDEMA 16 tablet 10 02/05/2023 Active Start: 11-05-2018 take 1 tablet by erin th once daily Furosemide 20 MG Oral Tablet TAKE 1 TABLET DAILY DIRECTED. Quantity: 0 Refills: 0 Ordered: 05-Nov-2018 DO Start : 05-Nov-2018 Active Start: 12-09-2012 End: 02-08-2013 take 20 mg by mouth once daily Furosemide Discontinued 20 MG PO DAILY December 09, 2012 12:00am February 08, 2013 9:28am Comment on above: TAKE ONE TABLET BY M OUTH EVERY OTHER DAY TAKE ONE TABLET BY M OUTH EVERY OTHER DAY FOR LYMPHEDEMA Gauze Bandage 2 X 2 bndg (20 sources) Start: 08-29-2020 Gauze Bandage 2 X 2 bndg Indications: Avulsion of skin of right foot, initial encounter Apply 1 application to affected area twice daily. 25 Each 08/29/2020 Active Start: 06-22-2021 Gauze Bandage 2 X 2 bndg Indications: Avulsion of skin of right foot, initial encounter Apply 1 application to affected area twice daily. 25 Each 0 08/29/2020 Active Comment on above: Apply 1 application to affected area twice daily. 12 hr guaiFENesin 600 mg extended release oral tablet (1 source) Start: 05-31-19 End: 06-14-19 guaiFENesin 600 mg oral tablet, extended release Dose : 600 mg = 1 tab(s), Oral, BID, X 14 day(s), # 28 tab(s), 0 Refill(s), 06/13/24 9:10:00 AM EDT Start Date: 05/30/24 Stop Date: 06/13/24 Status: Ordered Quantity: 28.0 Unit: tab(s) Repeat number: 1 ipratropium bromide 0.2 mg/ml inhalation solution (1 source) Anticholinergic Start: 05-31-19 End: 06-30-19 take 1 dose by inhalation four times daily ipratropium 500 mcg/2.5 mL inhalation solution Dose : 500 mcg = 2.5 mL, Inhalation, QID, # 300 mL, 0 Refill(s) Start Date: 05/30/24 Stop Date: 06/29/24 Status: Ordered Quantity: 300.0 Unit: mL Repeat number: 1 ammonium lactate 120 mg/ml topical cream (20 sources) Start: 05-14-19 ammonium lactate 12% topical cream Apply 1 cristian, Topical, qHS, # 140 gram(s), 0 Refill(s), Cream, 143 Start Date: 05/13/24 Status: Ordered Quantity: 140.0 Unit: g Repeat number: 1 Start: 01-26-2021 End: 11-24-2023 ammonium lactate (LAC-HYDRIN ) 12 % cream APPLY TOPICALLY TO AFFECTED AREA(S) ON LEGS AT BEDTIME 280 g 10 11/24/2023 Active Start: 10-26-2013 Ammonium Lacta te Active 1 APPLICATIO TOPICAL DAILY October 26, 2013 12:00am Comment on above: APPLY TOPICALLY TO A FFECTED AREA(S) ON LEGS AT BEDTIME levothyroxine sodium 0.1 mg oral tablet (20 sources) l-Thyroxine Start: 05-13-2024 levothyroxine 100 mcg (0.1 mg) oral tablet Dose : 100 mcg = 1 tab(s), Oral, qDay, # 30 tab(s), 0 Refill(s) Start Date: 05/13/24 Status: Ordered Quantity: 30.0 Unit: tab(s) Repeat number: 1 Start: 08-16-2022 End: 07-21-2023 take 1 tablet by mouth once daily [...] BEFORE BREAKFAST 31 tablet 09/05/2021 Active Start: 04-21-2019 take 100 ug by mouth once mallory y Levothyroxine Active 100 MCG PO DAILY April 21, 2019 4:26pm Start: 10-26-2013 End: 04-21-2019 take 50 ug by mouth once daily Levothyroxine Discontin ued 50 MCG PO DAILY October 26, 2013 12:00am April 21, 2019 4:27pm Start: 12-09-2012 End: 02-08-2013 take 50 ug by mouth once daily Levothyroxine Discontin ued 50 MCG PO DAILY December 09, 2012 12:00am February 08, 2013 9:28am Comment on above: TAKE ONE TABLET BY M OUTH DAILY ONE HOUR BEFORE BREAKFAST lisinopril 5 mg oral tablet (20 sources) Angiotensin Converting Enzyme Inhibitor Start: 4 End: take 1 tablet by mouth once daily lisinopril 5 mg tablet Take 1 tablet (5 mg) by mouth once daily. 01/12/2024 01/11/2025 Active MEDICAL SUPPLY (20 sources) Start: MEDICAL SUPPLY Indications: Lymphedema of right lower extremity , Lymphedema of left lower extremity , Lymphedema , Prader-Willi syndrome (HCC) Lymphedema compression pump to both legs 1 hour daily. 60 mm Hg. New machine. 1 Each 03/12/2024 Active Start: 03-12-2024 MEDICAL SUPPLY Indications: Lymphedema of right lower extremity , Lymphedema of left lower extremity , Lymphedema , Prader-Willi syndrome Lymphedema compression pump to both legs 1 hour daily. 60 mm Hg. New machine. 1 Each 03/12/2024 Active Start: 07-06-2021 End: 03-12-2024 MEDICAL SUPPLY Indications: Lymphedema , Prader-Willi syndrome Lymphedema massage therapy 1 Each 07/06/2021 03/12/2024 Discontinued Start: 07-06-2021 MEDICAL SUPPLY Indications: Lymphedema , Prader-Willi syndrome Lymphedema massage therapy 1 Each 07/06/2021 Active Start: 07-06-2021 MEDICAL SUPPLY Indications: Lymphedema , Prader-Willi syndrome Lymphedema massage therapy 1 Each 0 07/06/2021 Active Start: 07-06-2021 End: 07-06-2021 MEDICAL SUPPLY Indications: Lymphedema , Prader-Willi syndrome Lymphedema massage therapy 1 Each 0 07/06/2021 07/06/2021 Discontinued Comment on above: Lymphedema massage t herapy metOLazone 5 mg oral tablet (13 sources) Thiazide-like Diuretic Start: 05-09-2024 End: 05-09-2025 take 1 tablet by mouth every week metOLazone (Zaroxolyn) 5 mg tablet Indications: Chronic right-sided heart failure , Right ventricular dysfunction , Bilateral lower extremity edema Take 1 tablet (5 mg) by mouth 1 (one) time per week. 4 tablet 11 05/09/2024 05/09/2025 Active Start: 02-06-2024 End: 03-12-2024 take 1 tablet by mouth once daily metOLazone (ZAROXOLYN) 2.5 mg tablet Indications: 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) , Acute on chronic diastolic congestive heart failure (HCC) Take 1 tablet by mouth once daily. 30 tablet 5 02/06/2024 03/12/2024 Discontinued 24 hr metoprolol succinate 25 mg extended release oral tablet (1 source) beta-Adrenergic Rubi Start: 05-30-2024 End: 06-29-2024 metoprolol succinate 25 mg oral TABLET extended release Dose : 12.5 mg = 0.5 tab(s), Oral, qDay, Do not crush or chew (controlled release), # 15 tab(s), 0 Refill(s) Start Date: 05/30/24 Stop Date: 06/29/24 Status: Ordered Quantity: 15.0 Unit: tab(s) Repeat number: 1 Multivitamin,Tx-I annelise-Minerals (2 sources) Start: 10-26-2013 take 1 tablet by mouth once daily Multivitamin,Tx-I annelise-Minerals Active 1 TABLET PO DAILY October 26, 2013 12:00am multivitamin-ferr ous fumarate-folic acid (CERTAVITE-ANTIOX IDANT) (20 sources) Start: 09-19-2023 take 1 tablet [...] 1 tablet by erin th once daily. norethindrone 0.35 mg oral tablet (20 sources) Start: 03-12-2024 take 1 tablet by mouth once daily IRAIDA 0.35 mg tablet Take 1 tablet by mouth once daily. 03/12/2024 Active Start: 06-20-2021 End: 03-12-2024 IRAIDA 0.35 mg tablet 06/2003/12/2024 Discontinued Start: 06-20-2021 IRAIDA 0.35 m g tablet 06/20/2021 Active Start: 06-20-2021 IRAIDA 0.35 m g tablet Start: 05-23-2021 End: 06-02-2023 take 1 tablet by mouth once daily Norethindrone (Contraceptive) (Arianna) 0.35 mg tablet Active 0.35 MG PO daily June 02, 2023 3:25pm omega-3 acid ethyl esters (long-term) 1000 mg oral capsule (2 sources) Start: 05-13-2024 omega-3 polyun saturated fatty acids ethyl esters 1000 mg oral capsule Dose : 2,000 mg = 2 cap(s), Oral, qDay, # 120 cap(s), 0 Refill(s) Start Date: 05/13/24 Status: Ordered Quantity: 120.0 Unit: cap(s) Repeat number: 1 Start: 06-01-2015 take 1 capsule by [facility] once daily Fish Oil 1000 MG Oral Capsule TAKE 1 CAPSULE DAILY. Refills: 0 Start : 01-Jun-2015 Active Gurdon-3 Fatty Acids-Fish Oil (2 sources) Start: 10-26-2013 Gurdon-3 Fatty Acids-Fish Oil Active 1 EACH PO DAILY October 26, 2013 12:00am Meyja-5-CTX-EPA-Fish Oil 1,000 mg (120 mg-180 mg) cap (20 sources) Start: 08-22-2023 take 1 capsule by mouth once daily Xatay-0-BYI-EPA-Fish Oil 1,000 mg (120 mg-180 mg) cap Take 1 capsule by mouth once daily. 31 capsule 10 08/22/2023 Active Start: 08-08-2022 End: 08-22-2023 take 1 capsule by mouth once daily Llica-7-HTR-EPA-Fish Oil 1,000 mg (120 mg-180 mg) cap TAKE ONE CAPSULE BY MOUTH DAILY 31 capsule 10 08/08/2022 08/22/2023 Discontinued Start: 08-08-2022 take 1 capsule by [facility] once daily Xbytl-4-VMJ-EPA-Fish Oil 1,000 mg (120 mg-180 mg) cap TAKE ONE CAPSULE BY MOUTH DAILY 31 capsule 10 08/08/2022 Active Comment on above: TAKE ONE CAPSULE BY MOUTH DAILY ondansetron 4 mg disintegrating oral tablet (20 sources) Serotonin-3 Receptor Antagonist Start: 12-23-2023 ondansetron ODT (Zofran-ODT) 4 mg disintegrating tablet dissolve 1 tablet ON TONGUE every 8 hours if needed for nausea OR vomiting 12/23/2023 Active ondansetron (ZOF RAN) 4 mg tablet Take by mouth every 8 hours as needed for nausea/vomiting. Active perflutren lipid microspheres 1.3 mL in NaCl (PF) 0.9% 10 mL injection (DEFINITY) (20 sources) Start: 06-28-2021 End: 09-27-2022 perflutren lipid microspheres 1.3 mL in NaCl (PF) 0.9% 10 mL injection (DEFINITY) polyethylene glycol 3350 69129 mg powder for oral solution (1 source) Osmotic Laxative Start: 05-30-2024 take 17 doses by mouth once daily MiraLax oral powder for reconstitution Dose : 17 gram(s) =, Oral, qDay, # 510 gram(s), 0 Refill(s) Start Date: 05/30/24 Status: Ordered Quantity: 510.0 Unit: g Repeat number: 1 sertraline 25 mg oral tablet (5 sources) Serotonin Reuptake Inhibitor Start: 05-10-2024 take 1 tablet by mouth once daily sertraline (ZOLOFT) 25 mg tablet Take 1 tablet by mouth once daily. 30 tablet 1 05/10/2024 Active 125 ml sodium chloride 9 mg/ml prefilled syringe (20 sources) Start: 06-28-2021 End: 09-27-2022 sodium chloride 0.9 % (flush) 10 mL (BD POSIFLUSH) spironolactone 25 mg oral tablet (1 source) Aldosterone Antagonist Start: 05-30-2024 Aldactone 25 mg oral tablet Dose : 25 mg = 1 tab(s), Oral, qDayM, # 30 tab(s), 0 Refill(s) Start Date: 05/30/24 Status: Ordered Quantity: 30.0 Unit: tab(s) Repeat number: 1 Therapeutic Multiple Vitamins with Minerals, Zinc and Elderberry oral tablet, chewable (1 source) Start: 05-13-2024 take 1 tablet by mouth once daily Therapeutic Multiple Vitamins with Minerals, Zinc and Elderberry oral tablet, chewable 1 tab, Chewed, qDay, # 60 tab(s), 0 Refill(s) Start Date: 05/13/24 Status: Ordered Quantity: 60.0 Unit: tab(s) Repeat number: 1 torsemide 20 mg oral tablet (20 sources) Loop Diuretic Start: 04-09-2024 torsemide (DEMADEX) 20 mg tablet Take an extra 20 a day mgs In addition to current dose of 40 mgs 2 times on days you have more than 5 pounds of water weight gain 10 tablet 1 04/09/2024 Active Start: 01-27-2024 End: 01-26-2025 take 2 tablets by mouth twice daily torsemide (DEMADEX) 20 mg tablet Indications: Acute on chronic diastolic congestive heart failure (HCC) , Lymphedema of right lower extremity , Lymphedema of left lower extremity Take 2 tablets by mouth two times a day. 120 tablet 2 03/12/2024 Active Start: 01-20-2024 End: 07-18-2024 take 1 tablet by mouth twice daily torsemide (DEMADEX) 20 mg tablet Take 1 tablet by mouth two times a day. 01/20/2024 02/20/2024 Discontinued (Course of therapy completed) traMADol hydrochloride 50 mg oral tablet (1 source) Opioid Agonist Start: 05-30-2024 End: 06-04-2024 traMADol 50 mg oral tablet Dose : 50 mg = 1 tab(s), Oral, q6hr, PRN Pain, scale 4-6, X 5 day(s), # 20 tab(s), 0 Refill(s), 06/04/24 9:12:00 AM EDT, Musculoskeletal pain, 138.6 Start Date: 05/30/24 Stop Date: 06/04/24 Status: Ordered Quantity: 20.0 Unit: tab(s) Repeat number: 1 Indication: Myalgia, other site Completed/Discontinued Medications Medication Drug Class(es) Dates Sig (Normalized) Sig (Original) apixaban 5 mg oral tablet (2 sources) Factor Xa Inhibitor Start: 08-08-2020 End: 05-22-2021 take 2 tablets by mouth twice daily, then take 1 tablet by mouth twice daily Apixaban (Eliquis Dvt-Pe Treat 30d Start) 5 mg (74 tabs) tablets,dose pack Discontinued 5 MG PO TWICE A DAY 74 August 08, 2020 12:00am May 22, 2021 3:22pm 2 tabs twice daily x1 week then 1 tab twice daily Apri 0.15-30 MG-MCG Oral Tablet (6 sources) [...] on above: Take 1 capsule by mo [facility] at bedtime as needed for cough. Certagen Mvi (2 sources) Start: 12-09-2012 End: 02-08-2013 take 1 tablet by mouth once daily Certagen Mvi Discontinued 1 TABLET PO DAILY December 09, 2012 12:00am February 08, 2013 9:28am CERTAVITE-ANTIOXID ANT (20 sources) Start: 11-06-2020 End: 10-23-2022 take 1 tablet by mouth once daily CERTAVITE-ANTIOXID ANT TAKE ONE TABLET BY MOUTH DAILY 31 tablet 10 11/06/2020 10/23/2022 Discontinued Start: 11-06-2020 take 1 tablet by erin once daily CERTAVITE-ANTIOXIDANT TAKE ONE TABLET BY MOUTH DAILY 31 tablet 10 11/06/2020 Active Comment on above: TAKE ONE TABLET BY M OUTH DAILY CertaVite/Antioxida nts Oral Tablet (1 source) Start: 06-01-2015 take 1 tablet by mouth once daily CertaVite/Antioxidants Oral Tablet TAKE 1 TABLET DAILY. Refills: 0 Start : 01-Jun-2015 Active CertaVite/Antioxida nts Oral Tablet (6 sources) Start: 06-01-2015 take 1 tablet by mouth once daily CertaVite/Antioxidants Oral Tablet TAKE 1 TABLET DAILY. Quantity: 0 Refills: 0 Ordered: 01-Jun-2015 DO Start : 01-Jun-2015 Active Desogestrel-Ethinyl Estradiol (20 sources) Progestin, Estrogen Start: 05-22-2021 End: 05-23-2021 Desogestrel-Ethinyl Estradiol (Apri) 0.15-0.03 mg tablet Discontinued 1 TABLET PO daily 84 May 22, 2021 3:47pm May 23, 2021 3:13pm Start: 08-29-2020 End: 03-12-2024 take 1 tablet by mouth once daily, then take 0.15 tablet by mouth once Desogestrel-Ethinyl Estradiol (APRI) 0.15-0.03 mg per tablet Take 1 tablet by mouth once daily. 28 tablet 08/29/2020 03/12/2024 Discontinued (Duplicate Entry) Start: 08-29-2020 take 1 tablet by erin th once daily, then take 0.15 tablet by mouth once Desogestrel-Ethinyl Estradiol (APRI) 0.15-0.03 mg per tablet Take 1 tablet by mouth once daily. 28 tablet 08/29/2020 Active Start: 05-11-2020 End: 05-22-2021 Desogestrel-Ethinyl Estradio l (Apri) 0.15-0.03 mg tablet Discontinued 1 TABLET PO daily 84 May 11, 2020 4:00pm May 22, 2021 3:47pm Start: 04-29-2019 End: 05-11-2020 Desogestrel-Ethinyl Estradio l (Apri) 0.15-0.03 mg tablet Discontinued 1 TABLET PO daily 84 April 29, 2019 1:00am May 11, 2020 4:00pm Start: 04-11-2019 End: 04-21-2019 Desogestrel-Ethinyl Estradio l (Cyred) 0.15-0.03 mg tablet Discontinued 1 TABLET PO daily 84 April 11, 2019 5:06pm April 21, 2019 5:16pm Start: 06-03-2018 End: 04-11-2019 Desogestrel-Ethinyl Estradio l (Cyred) 0.15-0.03 mg tablet Discontinued 1 TABLET PO daily 84 June 03, 2018 3:46pm April 11, 2019 5:06pm Start: 04-08-2017 End: 06-03-2018 Desogestrel-Ethinyl Estradio l (Cyred) 0.15-0.03 mg tablet Discontinued 1 TABLET PO daily 84 April 08, 2017 10:56am June 03, 2018 3:47pm Start: 04-08-2017 End: 04-08-2017 Desogestrel-Ethinyl Estradio l (Cyred) 0.15-0.03 mg tablet Discontinued 1 TABLET PO daily April 08, 2017 1:00am April 08, 2017 10:57am Start: 06-01-2015 desogestreL-et hinyl estradioL (Apri) 0.15-0.03 mg tablet Take by mouth. 06/01/2015 Active Start: 06-01-2015 Apri 0.15-30 M G-MCG Oral Tablet 28 day tablet: take 1 tablet PO QD Refills: 0 Start : 01-Jun-2015 Active Start: 12-09-2012 End: 02-08-2013 take 1 tablet by mouth once daily Desog-E.Estradiol/E.Estradiol (Mircette 28 Day Tablet) 1 EACH tablet Discontinued 1 EACH PO DAILY December 09, 2012 12:00am February 08, 2013 9:28am Comment on above: Take 1 tablet by erin th once daily. diphenhydrAMINE hydrochloride 25 mg oral tablet (20 sources) Histamine-1 Receptor Antagonist Start: 11-18-19 End: 03-12-19 take 1 tablet by mouth every six hours as needed diphenhydrAMINE (BENADRYL) 25 mg tablet Indications: Rash Take 1 tablet by mouth every 6 hours as needed. 48 tablet 11/18/2019 03/12/2024 Discontinued Comment on above: Take 1 tablet by erin th every 6 hours as needed. Docosahexaenoate (5 sources) Start: 08-22-19 End: 05-04-19 take 1000 mg by mouth once daily DOCOSAHEXAENOIC ACID ORAL Take 1,000 mg by mouth once daily. 08/22/2023 05/04/2024 Discontinued (Med List Cleanup) Start: 08-22-2023 take 1000 mg by mout h once daily DOCOSAHEXAENOIC ACID ORAL Take 1,000 mg by mouth once daily. 08/22/2023 Active Gurdon-3 Fatty Acids-Fish Oil (2 sources) Start: 12-09-2012 End: 02-08-2013 Gurdon-3 Fatty Acids-Fish Oil Discontinued 1 EACH PO DAILY December 09, 2012 12:00am February 08, 2013 9:28am ergocalciferol 1.25 mg oral capsule (16 sources) Provitamin D2 Compound Start: 09-30-2014 End: 06-03-2018 take 36865 [IU] by mouth once Ergocalciferol (Vitamin D2) Discontinued 86989 UNIT PO MO September 30, 2014 12:00am June 03, 2018 3:29pm End: 05-04-2024 ergocalciferol (Vitamin D-2) 1.25 MG (01375 UT) capsule Take by mouth. 05/04/2024 Discontinued (Med List Cleanup) take 1 capsule by mouth once Vit walden D (Ergocalciferol) 1.25 MG (82561 UT) Oral Capsule Quantity: 0 Refills: 0 Ordered: 06-Dec-2016 DO Active Vitamin D (Ergoc alciferol) 1.25 MG (09837 UT) Oral Capsule Refills: 0 Active Fish Oil-Gurdon-3 Fatty Acids (FISH OIL) 340-1,000 mg cap (7 sources) Start: 08-21-2020 End: 08-15-2021 take 1 capsule by mouth once daily Fish Oil-Gurdon-3 Fatty Acids (FISH OIL) 340-1,000 mg cap Take 1 capsule by mouth once daily. 31 capsule 11 08/21/2020 08/15/2021 Discontinued Start: 08-21-2020 take 1 capsule by mo uth once daily Fish Oil-Gurdon-3 Fatty Acids (FISH OIL) 340-1,000 mg cap [...] above: TAKE ONE CAPSULE BY MOUTH DAILY fluconazole 150 mg oral tablet (2 sources) Azole Antifungal Start: 06-04-19 End: 04-21-19 Fluconazole Discontinued 150 MG PO .COMPLEX 2 June 03, 2018 12:00am April 21, 2019 4:27pm 150 mg PO take one po now and repeat in 3 days Fluticasone Propion-Salmeterol (2 sources) Corticosteroid, beta2-Adrenergic Agonist Start: 12-10-19 13 End: 02-09-20 13 take 1 puff(s) by inhalation twice daily Fluticasone Propion-Salmeterol (Advair 250/50 Mcg Diskus) 1 PUFF inhaler Discontinued 1 PUFF INHALATION TWICE A DAY December 09, 2012 12:00am February 08, 2013 9:28am Leg Brace (TRUE CMFT KNEE COMPRESSION) mis (20 sources) Start: 11-18-19 End: 03-12-19 Leg Br[place] COM[place]ION[place] [facility]: L[place]hedema 1 Each once daily. 2 Each 1 11/18/2023 03/12/2024 Discontinued Start: 11-18-2023 Leg Brace (PHONG E CMFT KNEE COMPRESSION[place] [facility]: L[place]hedema 1 Each once daily. 2 Each 1 11/18/2023 Active magnesium oxide 400 mg oral tablet (4 sources) Start: 02-06-2024 End: 02-16-2024 take 1 tablet by mouth once daily magnesium oxide (MAG-OX) 400 mg (241.3 mg magnesium) tablet Take 1 tablet by mouth once daily. 30 tablet 5 02/06/2024 02/16/2024 Discontinued midodrine hydrochloride 5 mg oral tablet (8 sources) alpha-Adrenergic Agonist Start: 02-19-2024 End: 03-12-2024 take 1 tablet by mouth three times daily midodrine (PROAMITINE) 5 mg tablet Take 5 mg by mouth three times a day. 02/19/2024 03/12/2024 Discontinued (Discontinued by another Health Care Provider) mometasone furoate 0.05 mg/actuat metered dose nasal spray (2 sources) Corticosteroid Start: 12-09-2012 End: 02-08-2013 Mometasone (Nasonex) 1 SPRAY Nasal.Sry Discontinued 2 SPRAY NASAL DAILY December 09, 2012 12:00am February 08, 2013 9:28am naproxen 500 mg oral tablet (20 sources) Nonsteroidal Anti-inflammatory Drug Start: 05-04-2021 End: 05-04-2024 take 1 tablet by mouth twice daily as needed for pain naproxen (Naprosyn) 500 mg tablet TAKE ONE TABLET BY MOUTH TWICE DAILY NEEDED FOR PAIN/INFLAMMATION OF KNEE *TAKE WITH FOOD* *STAFF REORDER, 4 DAYS IN ADVANCE* 08/27/2022 05/04/2024 Discontinued (Med List Cleanup) Comment on above: TAKE ONE TABLET BY OUT TWICE DAILY NEEDED FOR PAIN/INFLAMMATION OF KNEE *TAKE WITH FOOD* *STAFF REORDER, 4 DAYS IN ADVANCE* nystatin 100 unt/mg topical powder (20 sources) Polyene Antifungal Start: 05-13-2024 nystatin 100,000 units/g topical powder Apply 1 cristian, Topical, qHS, 0 Refill(s), 143 Start Date: 05/13/24 Status: Ordered Repeat number: 1 Start: 07-19-2020 End: 07-09-2023 nystatin (NYAMYC) powder CRISTIAN LY TOPICALLY TWICE DAILY TO AFFECTED AREA(S) ON ABDOMINAL FOLDS 60 g 10 07/09/2023 Active Start: 06-01-2015 nystatin (Myco statin) 100,000 unit/gram powder APPLY TOPICALLY TWICE DAILY TO AFFECTED AREA(S) ON ABDOMINAL FOLDS 06/01/2015 Active Comment on above: APPLY TOPICALLY TWIC E DAILY TO AFFECTED AREA(S) ON ABDOMINAL FOLDS *EXTERNAL USE ONLY* Oyster Shell (2 sources) Start: 5 End: 0 take 1000 mg by mouth at bedtime Oyster Shell Discontinued 1000 MG PO AT BEDTIME September 30, 2014 12:00am April 21, 2019 4:27pm perflutren lipid microspheres (Definity) injection 2 mL of dilution (3 sources) Start: 4 End: 5 perflutren lipid microspheres (Definity) injection 2 mL of dilution Start: 01-20-2024 perflutren lip id microspheres (Definity) injection 2 mL of dilution potassium chloride 20 meq extended release oral tablet (20 sources) Start: 12-12-2023 End: 01-11-2025 take 1 tablet by mouth once daily potassium chloride CR 20 mEq ER tablet Take 1 tablet (20 mEq) by mouth once daily. 01/12/2024 05/04/2024 Discontinued (Med List Cleanup) Start: 11-18-2023 End: 01-08-2024 take 1 tablet by mouth once daily potassium chloride ER (KLOR-CON M10) 10 mEq tablet Indications: Lymphedema Take 1 tablet by mouth once daily. 30 tablet 11 11/18/2023 01/08/2024 Discontinued Start: 06-05-2022 End: 11-18-2023 take 1 tablet by mouth every other day at breakfast potassium chloride ER (KLOR-CON M10) 10 mEq tablet TAKE ONE TABLET BY MOUTH EVERY OTHER DAY ( WITH BREAKFAST) ON DAYS WHEN YOU TAKE LASIX (FUROSEMIDE) 16 tablet 11 06/13/2023 11/18/2023 Discontinued Start: 05-22-2021 take 10 mEq by mouth every other day Potassium Chloride Active 10 MEQ PO .qod May 22, 2021 12:00am Start: 12-20-2020 End: 10-23-2022 potassium chloride (K-TAB) [...] ON DAYS WHEN YOU TAKE LASIX (FUROSEMIDE) tirzepatide, weight loss, (Zepbound) 2.5 mg/0.5 mL injection (3 sources) Start: 05-03-2024 End: 05-14-2024 tirzepatide, weight loss, (Zepbound) 2.5 mg/0.5 mL injection Indications: Prader-Willi syndrome (HHS-HCC) , Class 3 severe obesity with serious comorbidity and body mass index (BMI) of 50.0 to 59.9 in adult, unspecified obesity type Inject 2.5 mg under the skin every 7 days. 4 each 6 05/03/2024 05/14/2024 Discontinued (Reorder) Start: 05-03-2024 tirzepatide, w eight loss, (Zepbound) 2.5 mg/0.5 mL injection Indications: Prader-Willi syndrome (HHS-HCC) , Class 3 severe obesity with serious comorbidity and body mass index (BMI) of 50.0 to 59.9 in adult, unspecified obesity type Inject 2.5 mg under the skin every 7 days. 4 each 6 05/03/2024 Active Start: 05-03-2024 End: 05-03-2024 tirzepatide, weight loss, (Z epbound) 2.5 mg/0.5 mL injection Indications: Prader-Willi syndrome (HHS-HCC) , Class 3 severe obesity with serious comorbidity and body mass index (BMI) of 50.0 to 59.9 in adult, unspecified obesity type Inject 2.5 mg under the skin every 7 days. 4 each 05/03/2024 05/03/2024 Discontinued (Reorder) tirzepatide, weight loss, (Zepbound) 5 mg/0.5 mL injection (3 sources) Start: 05-03-2024 End: 05-14-2024 tirzepatide, weight loss, (Zepbound) 5 mg/0.5 mL injection Indications: Prader-Willi syndrome (HHS-HCC) , Class 3 severe obesity with serious comorbidity and body mass index (BMI) of 50.0 to 59.9 in adult, unspecified obesity type Inject 5 mg under the skin every 7 days. 4 each 05/03/2024 05/14/2024 Discontinued (Reorder) Start: 05-03-2024 tirzepatide, w eight loss, (Zepbound) 5 mg/0.5 mL injection Indications: Prader-Willi syndrome (HHS-HCC) , Class 3 severe obesity with serious comorbidity and body mass index (BMI) of 50.0 to 59.9 in adult, unspecified obesity type Inject 5 mg under the skin every 7 days. 4 each 5 05/03/2024 Active Start: 05-03-2024 End: 05-03-2024 tirzepatide, weight loss, (Z epbound) 5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 L100.0500 ####[facility] [address] [place], [address] GFR/1.73 sq M.predicted among non-blacks MDRD (S/P/Bld) [Vol rate/Area] 123 mL/min/{1.73_m2} Normal >60 [facility] Comment on above: Order Comment: 202 Result Comment: mL/m in/1.73m2 CKD-EPI Creatinine Equation (2020) Performed By: #### L 501.5200, L500.4050, L100.0500 ####[facility] [address] [place], [address] Globulin (S) [Mass/Vol] 3.1 g/dL Normal 2.2-4.2 [facility] Comment on above: Order Comment: 202 Performed By: #### L 501.5200, L500.4050, L100.0500 ####[facility] [address] [place], [address] Glucose [Mass/Vol] 99 mg/dL Normal 70-99 [facility] Comment on above: Order Comment: 202 Performed By: #### L 501.5200, L500.4050, L100.0500 ####[facility] [address] [place], [address] Potassium [Moles/Vol] 4.3 mmol/L Normal 3.3-5.1 [facility] Comment on above: Order Comment: 202 Performed By: #### L 501.5200, L500.4050, L100.0500 ####[facility] [address] [place], [address] Sodium [Moles/Vol] 141 mmol/L Normal 133-145 [facility] Comment on above: Order Comment: 202 Performed By: #### L 501.5200, L500.4050, L100.0500 ####[facility] [address] [place], [address] T BILI < 0.15 Normal 0.00-1.30 [facility] Comment on above: Order Comment: 202 Performed By: #### L 501.5200, L500.4050, L100.0500 ####[facility] [address] [place], [address] T PROT 6.5 g/dL Normal 5.9-8.4 [facility] Comment on above: Order Comment: 202 Performed By: #### L 501.5200, L500.4050, L100.0500 ####[facility] [address] [place], [address] Urea nitrogen [Mass/Vol] 15 mg/dL Normal 4-19 [facility] Comment on above: Order Comment: 202 Performed By: #### L 501.5200, L500.4050, L100.0500 ####[facility] [address] [place], [address] Magnesiumon 07-26-2024 Magnesium [Mass/Vol] 2.2 mg/dL Normal 1.5-2.2 [facility] Comment on above: Order Comment: 202 Performed By: #### L 501.5200, L500.4050, L100.0500 ####[facility] [address] [place], [address] Basic Metabolic Profile (BMP )on 07-19-2024 BUN Normal 4-19 [facility] Comment on above: Order Comment: . Result Comment: UTO X1 Performed By: #### L 500.2500 ####[facility] [address] [place], [address] BUN/CRE Normal 10-20 [facility] Comment on above: Order Comment: . Result Comment: UTO X1 Performed By: #### L 500.2500 ####[facility] [address] [place], [address] Calcium Normal 7.6-11.0 [facility] Comment on above: Order Comment: . Result Comment: UTO X1 Performed By: #### L 500.2500 ####[facility] [address] [place], [address] CL Normal 98-108 [facility] Comment on above: Order Comment: Result Comment: UTO X1 Performed By: #### L 500.2500 ####[facility] [address] [place], [address] CO2 Normal 21.0-32.0 [facility] Comment on above: Order Comment: . Result Comment: UTO X1 Performed By: #### L 500.2500 ####[facility] [address] [place], [address] CREAT,SERUM Normal 0.70-1.20 [facility] Comment on above: Order Comment: Result Comment: UTO X1 Performed By: #### L 500.2500 ####[facility] [address] [place], [address] eGFR Normal >60 [facility] Comment on above: Order Comment: Result Comment: UTO X1 Performed By: #### L 500.2500 ####[facility] [address] [place], [address] GAP Normal 5-15 [facility] Comment on above: Order Comment: Result Comment: UTO X1 Performed By: #### L 500.2500 ####[facility] [address] [place], [address] GLU Normal 70-99 [facility] Comment on above: Order Comment: Result Comment: UTO X1 Performed By: #### L 500.2500 ####[facility] [address] [place], [address] Potassium Normal 3.3-5.1 [facility] Comment on above: Order Comment: Result Comment: UTO X1 Performed By: #### L 500.2500 ####[facility] [address] [place], [address] Basic Metabolic Profile (BMP) Normal 133-145 [facility] Comment on above: Order Comment: Result Comment: UTO X1 Performed By: #### L 500.2500 ####[facility] [address] [place], [address] Basic Metabolic Profile (BMP )on 07-12-2024 BUN/CRE 38.0 RATIO High 10-20 [facility] Comment on above: Order Comment: Performed By: #### L 500.2500 ####[facility] [address] [place], [address] Calcium [Mass/Vol] 9.5 mg/dL Normal 7.6-11.0 [facility] Comment on above: Order Comment: Performed By: #### L 500.2500 ####[facility] [address] [place], [address] Chloride [Moles/Vol] 98 mmol/L Normal 98-108 [facility] Comment on above: Order Comment: Performed By: #### L 500.2500 ####[facility] [address] [place], [address] CO2 [Moles/Vol] 29.5 mmol/L Normal 21.0-32.0 [facility] Comment on above: Order Comment: . Performed By: #### L 500.2500 ####[facility] [address] [place], [address] Creatinine [Mass/Vol] 0.41 mg/dL Low 0.70-1.20 [facility] Comment on above: Order Comment: Performed By: #### L 500.2500 ####[facility] [address] [place], [address] GAP 10 Normal 5-15 [facility] Comment on above: Order Comment: Performed By: #### L 500.2500 ####[facility] [address] [place], [address] GFR/1.73 sq M.predicted among non-blacks MDRD (S/P/Bld) [Vol rate/Area] 126 mL/min/{1.73_m2} Normal >60 [facility] Comment on above: Order Comment: Result Comment: mL/m in/1.73m2 CKD-EPI Creatinine Equation (2020) Performed By: #### L 500.2500 ####[facility] [address] [place], [address] Glucose [Mass/Vol] 79 mg/dL Normal 70-99 [facility] Comment on above: Order Comment: Performed By: #### L 500.2500 ####[facility] [address] [place], [address] Potassium [Moles/Vol] 4.0 mmol/L Normal 3.3-5.1 [facility] Comment on above: Order Comment: Performed By: #### L 500.2500 ####[facility] [address] [place], [address] Sodium [Moles/Vol] 137 mmol/L Normal 133-145 [facility] Comment on above: Order Comment: . Performed By: #### L 500.2500 ####[facility] [address] [place], [address] Urea nitrogen [Mass/Vol] 16 mg/dL Normal 4-19 [facility] Comment on above: Order Comment: Performed By: #### L 500.2500 ####[facility] [address] [place], [address] CBC W/Diff, Automatedon 06-09 Absolute Lymph 1.71 X10 3/uL Normal 0.83-4.51 [facility] Comment on above: Performed By: #### L 100.0100, L501.5200, L500.4050 ####[facility] [address] [place], [address] Absolute Neut 6.9 X10 3/uL Normal 2.0-7.7 [facility] Comment on above: Performed By: #### L 100.0100, L501.5200, L500.4050 ####[facility] [address] [place], [address] Basophils/100 WBC (Bld) 0.3 % Normal 0-1 [facility] Comment on above: Performed By: #### L 100.0100, L501.5200, L500.4050 ####[facility] [address] [place], [address] Eosinophils/100 WBC (Bld) 3.3 % Normal 0-5 [facility] Comment on above: Performed By: #### L 100.0100, L501.5200, L500.4050 ####[facility] [address] [place], [address] Erythrocyte distribution width (RBC) [Ratio] 13.9 % Normal 11.6-14.6 [facility] Comment on above: Performed By: #### L 100.0100, L501.5200, L500.4050 ####[facility] [address] [place], [address] Hematocrit (Bld) [Volume fraction] 31.8 % Low 37-47 [facility] Comment on above: Performed By: #### L 100.0100, L501.5200, L500.4050 ####[facility] [address] [place], [address] Hemoglobin (Bld) [Mass/Vol] 10.2 g/dL Low 12.0-15.0 [facility] Comment on above: Performed By: #### L 100.0100, L501.5200, L500.4050 ####[facility] [address] [place], [address] IG% 0.800 Normal 0.0-0.9 [facility] Comment on above: Result Comment: IG% - Immature Granulocytes (promyelocytes, myelocytes andmetamyelocytes) > 1% indicates that a LEFT SHIFT is Present. Performed By: #### L 100.0100, L501.5200, L500.4050 ####[facility] [address] [place], [address] Lymphocytes/100 WBC (Bld) 17.1 % Low 19-41 [facility] Comment on above: Performed By: #### L 100.0100, L501.5200, L500.4050 ####[facility] [address] [place], [address] MCH (RBC) [Entitic mass] 31.5 pg Normal 27.0-32.0 [facility] Comment on above: Performed By: #### L 100.0100, L501.5200, L500.4050 ####[facility] [address] [place], [address] MCHC (RBC) [Mass/Vol] 32.1 g/dL Normal 32-36 [facility] Comment on above: Performed By: #### L 100.0100, L501.5200, L500.4050 ####[facility] [address] [place], [address] MCV (RBC) [Entitic vol] 98.1 fL Normal 81-99 [facility] Comment on above: Performed By: #### L 100.0100, L501.5200, L500.4050 ####[facility] [address] [place], [address] Monocytes/100 WBC (Bld) 9.9 % Normal 0-10 [facility] Comment on above: Performed By: #### L 100.0100, L501.5200, L500.4050 ####[facility] [address] [place], [address] Neutrophils/100 WBC (Bld) 68.6 % Normal 47-70 [facility] Comment on above: Performed By: #### L 100.0100, L501.5200, L500.4050 ####[facility] [address] [place], [address] Nucleated RBC (Bld) [#/Vol] 0 10*3/uL Normal 0-5 [facility] Comment on above: Performed By: #### L 100.0100, L501.5200, L500.4050 ####[facility] [address] [place], [address] Platelet mean volume (Bld) [Entitic vol] 11.3 fL Normal 6.2-12.0 [facility] Comment on above: Performed By: #### L 100.0100, L501.5200, L500.4050 ####[facility] [address] [place], [address] Platelets (Bld) [#/Vol] 226 10*3/uL Normal 150-450 [facility] Comment on above: Performed By: #### L 100.0100, L501.5200, L500.4050 ####[facility] [address] [place], [address] RBC (Bld) [#/Vol] 3.24 10*6/uL Low 4.2-5.4 [facility] Comment on above: Performed By: #### L 100.0100, L501.5200, L500.4050 ####[facility] [address] [place], [address] RDW SD 50.9 fl High 35.1-43.9 [facility] Comment on above: Performed By: #### L 100.0100, L501.5200, L500.4050 ####[facility] [address] [place], [address] WBC (Bld) [#/Vol] 10.0 10*3/uL Normal 4.4-11.0 [facility] Comment on above: Performed By: #### L 100.0100, L501.5200, L500.4050 ####[facility] [address] [place], [address] Comprehensive Metabolic Prof [facility] 07-05-2024 Albumin [Mass/Vol] 3.3 g/dL Low 3.5-5.0 [facility] Comment on above: Performed By: #### L 100.0100, L501.5200, L500.4050 ####[facility] [address] [place], [address] Albumin/Globulin [Mass ratio] 1.1 {ratio} Normal 0.9-2.4 [facility] Comment on above: Performed By: #### L 100.0100, L501.5200, L500.4050 ####[facility] [address] [place], [address] ALK PHOS 110 U/L High 35-104 [facility] Comment on above: Performed By: #### L 100.0100, L501.5200, L500.4050 ####[facility] [address] [place], [address] ALT [Catalytic activity/Vol] 16 U/L Normal <=34 [facility] Comment on above: Performed By: #### L 100.0100, L501.5200, L500.4050 ####[facility] [address] [place], [address] AST [Catalytic activity/Vol] 18 U/L Normal <=31 [facility] Comment on above: Performed By: #### L 100.0100, L501.5200, L500.4050 ####[facility] [address] [place], [address] BUN/CRE 25.8 RATIO High 10-20 [facility] Comment on above: Performed By: #### L 100.0100, L501.5200, L500.4050 ####[facility] [address] [place], [address] Calcium [Mass/Vol] 8.8 mg/dL Normal 7.6-11.0 [facility] Comment on above: Performed By: #### L 100.0100, L501.5200, L500.4050 ####[facility] [address] [place], [address] Chloride [Moles/Vol] 97 mmol/L Low 98-108 [facility] Comment on above: Performed By: #### L 100.0100, L501.5200, L500.4050 ####[facility] [address] [place], [address] CO2 [Moles/Vol] 30.6 mmol/L Normal 21.0-32.0 [facility] Comment on above: Performed By: #### L 100.0100, L501.5200, L500.4050 ####[facility] [address] [place], [address] Creatinine [Mass/Vol] 0.46 mg/dL Low 0.70-1.20 [facility] Comment on above: Performed By: #### L 100.0100, L501.5200, L500.4050 ####[facility] [address] [place], [address] GAP 9 Normal 5-15 [facility] Comment on above: Performed By: #### L 100.0100, L501.5200, L500.4050 ####[facility] [address] [place], [address] GFR/1.73 sq M.predicted among non-blacks MDRD (S/P/Bld) [Vol rate/Area] 122 mL/min/{1.73_m2} Normal >60 [facility] Comment on above: Result Comment: mL/m in/1.73m2 CKD-EPI Creatinine Equation (2020) Performed By: #### L 100.0100, L501.5200, L500.4050 ####[facility] [address] [place], [address] Globulin (S) [Mass/Vol] 2.9 g/dL Normal 2.2-4.2 [facility] Comment on above: Performed By: #### L 100.0100, L501.5200, L500.4050 ####[facility] [address] [place], [address] Glucose [Mass/Vol] 91 mg/dL Normal 70-99 [facility] Comment on above: Performed By: #### L 100.0100, L501.5200, L500.4050 ####[facility] [address] [place], [address] Potassium [Moles/Vol] 4.6 mmol/L Normal 3.3-5.1 [facility] Comment on above: Performed By: #### L 100.0100, L501.5200, L500.4050 ####[facility] [address] [place], [address] Sodium [Moles/Vol] 137 mmol/L Normal 133-145 [facility] Comment on above: Performed By: #### L 100.0100, L501.5200, L500.4050 ####[facility] [address] [place], [address] T BILI < 0.15 Normal 0.00-1.30 [facility] Comment on above: Performed By: #### L 100.0100, L501.5200, L500.4050 ####[facility] [address] [place], [address] T PROT 6.2 g/dL Normal 5.9-8.4 [facility] Comment on above: Performed By: #### L 100.0100, L501.5200, L500.4050 ####[facility] [address] [place], [address] Urea nitrogen [Mass/Vol] 12 mg/dL Normal 4-19 [facility] Comment on above: Performed By: #### L 100.0100, L501.5200, L500.4050 ####[facility] [address] [place], [address] Magnesiumon 07-05-2024 Magnesium [Mass/Vol] 2.1 mg/dL Normal 1.5-2.2 [facility] Comment on above: Performed By: #### L 100.0100, L501.5200, L500.4050 ####[facility] [address] [place], [address] CBC W/Diff, Automatedon 04- Absolute Lymph 2.21 X10 3/uL Normal 0.83-4.51 [facility] Comment on above: Order Comment: 202 Performed By: #### L 100.0100, L501.5200, L500.4050 ####[facility] [address] [place], [address] Absolute Neut 6.5 X10 3/uL Normal 2.0-7.7 [facility] Comment on above: Order Comment: 202 Performed By: #### L 100.0100, L501.5200, L500.4050 ####[facility] [address] [place], [address] Basophils/100 WBC (Bld) 0.4 % Normal 0-1 [facility] Comment on above: Order Comment: 202 Performed By: #### L 100.0100, L501.5200, L500.4050 ####[facility] [address] [place], [address] Eosinophils/100 WBC (Bld) 5.3 % High 0-5 [facility] Comment on above: Order Comment: 202 Performed By: #### L 100.0100, L501.5200, L500.4050 ####[facility] [address] [place], [address] Erythrocyte distribution width (RBC) [Ratio] 13.8 % Normal 11.6-14.6 [facility] Comment on above: Order Comment: 202 Performed By: #### L 100.0100, L501.5200, L500.4050 ####[facility] [address] [place], [address] Hematocrit (Bld) [Volume fraction] 33.0 % Low 37-47 [facility] Comment on above: Order Comment: 202 Performed By: #### L 100.0100, L501.5200, L500.4050 ####[facility] [address] [place], [address] Hemoglobin (Bld) [Mass/Vol] 10.5 g/dL Low 12.0-15.0 [facility] Comment on above: Order Comment: 202 Performed By: #### L 100.0100, L501.5200, L500.4050 ####[facility] [address] [place], [address] IG% 0.600 Normal 0.0-0.9 [facility] Comment on above: Order Comment: 202 Result Comment: IG% - Immature Granulocytes (promyelocytes, myelocytes andmetamyelocytes) > 1% indicates that a LEFT SHIFT is Present. Performed By: #### L 100.0100, L501.5200, L500.4050 ####[facility] [address] [place], [address] Lymphocytes/100 WBC (Bld) 21.4 % Normal 19-41 [facility] Comment on above: Order Comment: 202 Performed By: #### L 100.0100, L501.5200, L500.4050 ####[facility] [address] [place], [address] MCH (RBC) [Entitic mass] 31.3 pg Normal 27.0-32.0 [facility] Comment on above: Order Comment: 202 Performed By: #### L 100.0100, L501.5200, L500.4050 ####[facility] [address] [place], [address] MCHC (RBC) [Mass/Vol] 31.8 g/dL Low 32-36 [facility] Comment on above: Order Comment: 202 Performed By: #### L 100.0100, L501.5200, L500.4050 ####[facility] [address] [place], [address] MCV (RBC) [Entitic vol] 98.5 fL Normal 81-99 [facility] Comment on above: Order Comment: 202 Performed By: #### L 100.0100, L501.5200, L500.4050 ####[facility] [address] [place], [address] Monocytes/100 WBC (Bld) 10.0 % Normal 0-10 [facility] Comment on above: Order Comment: 202 Performed By: #### L 100.0100, L501.5200, L500.4050 ####[facility] [address] [place], [address] Neutrophils/100 WBC (Bld) 62.3 % Normal 47-70 [facility] Comment on above: Order Comment: 202 Performed By: #### L 100.0100, L501.5200, L500.4050 ####[facility] [address] [place], [address] Nucleated RBC (Bld) [#/Vol] 0 10*3/uL Normal 0-5 [facility] Comment on above: Order Comment: 202 Performed By: #### L 100.0100, L501.5200, L500.4050 ####[facility] [address] [place], [address] Platelet mean volume (Bld) [Entitic vol] 11.5 fL Normal 6.2-12.0 [facility] Comment on above: Order Comment: 202 Performed By: #### L 100.0100, L501.5200, L500.4050 ####[facility] [address] [place], [address] Platelets (Bld) [#/Vol] 209 10*3/uL Normal 150-450 [facility] Comment on above: Order Comment: 202 Performed By: #### L 100.0100, L501.5200, L500.4050 ####[facility] [address] [place], [address] RBC (Bld) [#/Vol] 3.35 10*6/uL Low 4.2-5.4 [facility] Comment on above: Order Comment: 202 Performed By: #### L 100.0100, L501.5200, L500.4050 ####[facility] [address] [place], [address] RDW SD 49.6 fl High 35.1-43.9 [facility] Comment on above: Order Comment: 202 Performed By: #### L 100.0100, L501.5200, L500.4050 ####[facility] [address] [place], [address] WBC (Bld) [#/Vol] 10.4 10*3/uL Normal 4.4-11.0 [facility] Comment on above: Order Comment: 202 Performed By: #### L 100.0100, L501.5200, L500.4050 ####[facility] [address] [place], [address] Comprehensive Metabolic Prof [facility] 2024 Albumin [Mass/Vol] 3.3 g/dL Low 3.5-5.0 [facility] Comment on above: Order Comment: 202 Performed By: #### L 100.0100, L501.5200, L500.4050 ####[facility] [address] [place], [address] Albumin/Globulin [Mass ratio] 1.0 {ratio} Normal 0.9-2.4 [facility] Comment on above: Order Comment: 202 Performed By: #### L 100.0100, L501.5200, L500.4050 ####[facility] [address] [place], [address] ALK PHOS 103 U/L Normal 35-104 [facility] Comment on above: Order Comment: 202 Performed By: #### L 100.0100, L501.5200, L500.4050 ####[facility] [address] [place], [address] ALT [Catalytic activity/Vol] 19 U/L Normal <=34 [facility] Comment on above: Order Comment: 202 Performed By: #### L 100.0100, L501.5200, L500.4050 ####[facility] [address] [place], [address] AST [Catalytic activity/Vol] 19 U/L Normal <=31 [facility] Comment on above: Order Comment: 202 Performed By: #### L 100.0100, L501.5200, L500.4050 ####[facility] [address] [place], [address] Bilirubin [Mass/Vol] 0.27 mg/dL Normal 0.00-1.30 [facility] Comment on above: Order Comment: 202 Performed By: #### L 100.0100, L501.5200, L500.4050 ####[facility] [address] [place], [address] BUN/CRE 23.1 RATIO High 10-20 [facility] Comment on above: Order Comment: 202 Performed By: #### L 100.0100, L501.5200, L500.4050 ####[facility] [address] [place], [address] Calcium [Mass/Vol] 9.0 mg/dL Normal 7.6-11.0 [facility] Comment on above: Order Comment: 202 Performed By: #### L 100.0100, L501.5200, L500.4050 ####[facility] [address] [place], [address] Chloride [Moles/Vol] 95 mmol/L Low 98-108 [facility] Comment on above: Order Comment: 202 Performed By: #### L 100.0100, L501.5200, L500.4050 ####[facility] [address] [place], [address] CO2 [Moles/Vol] 29.8 mmol/L Normal 21.0-32.0 [facility] Comment on above: Order Comment: 202 Performed By: #### L 100.0100, L501.5200, L500.4050 ####[facility] [address] [place], [address] Creatinine [Mass/Vol] 0.43 mg/dL Low 0.70-1.20 [facility] Comment on above: Order Comment: 202 Performed By: #### L 100.0100, L501.5200, L500.4050 ####[facility] [address] [place], [address] GAP 10 Normal 5-15 [facility] Comment on above: Order Comment: 202 Performed By: #### L 100.0100, L501.5200, L500.4050 ####[facility] [address] [place], [address] GFR/1.73 sq M.predicted among non-blacks MDRD (S/P/Bld) [Vol rate/Area] 125 mL/min/{1.73_m2} Normal >60 [facility] Comment on above: Order Comment: 202 Result Comment: mL/m in/1.73m2 CKD-EPI Creatinine Equation (2020) Performed By: #### L 100.0100, L501.5200, L500.4050 ####[facility] [address] [place], [address] Globulin (S) [Mass/Vol] 3.2 g/dL Normal 2.2-4.2 [facility] Comment on above: Order Comment: 202 Performed By: #### L 100.0100, L501.5200, L500.4050 ####[facility] [address] [place], [address] Glucose [Mass/Vol] 90 mg/dL Normal 70-99 [facility] Comment on above: Order Comment: 202 Performed By: #### L 100.0100, L501.5200, L500.4050 ####[facility] [address] [place], [address] Potassium [Moles/Vol] 4.1 mmol/L Normal 3.3-5.1 [facility] Comment on above: Order Comment: 202 Performed By: #### L 100.0100, L501.5200, L500.4050 ####[facility] [address] [place], [address] Sodium [Moles/Vol] 134 mmol/L Normal 133-145 [facility] Comment on above: Order Comment: 202 Performed By: #### L 100.0100, L501.5200, L500.4050 ####[facility] [address] [place], [address] T PROT 6.5 g/dL Normal 5.9-8.4 [facility] Comment on above: Order Comment: 202 Performed By: #### L 100.0100, L501.5200, L500.4050 ####[facility] [address] [place], [address] Urea nitrogen [Mass/Vol] 10 mg/dL Normal 4-19 [facility] Comment on above: Order Comment: 202 Performed By: #### L 100.0100, L501.5200, L500.4050 ####[facility] [address] [place], [address] Magnesiumon 2024 Magnesium [Mass/Vol] 2.0 mg/dL Normal 1.5-2.2 [facility] Comment on above: Order Comment: 202 Performed By: #### L 100.0100, L501.5200, L500.4050 ####[facility] [address] [place], [address] CBC W/Diff, Automatedon 06-09 Absolute Neut Normal 2.0-7.7 [facility] Comment on above: Order Comment: Result Comment: DID NOT GET LABS 06/29/24 Performed By: #### L 100.0100, L500.4050 ####[facility] [address] [place], [address] HCT Normal 37-47 [facility] Comment on above: Order Comment: Result Comment: DID NOT GET LABS 06/29/24 Performed By: #### L 100.0100, L500.4050 ####[facility] [address] [place], [address] HGB Normal 12.0-15.0 [facility] Comment on above: Order Comment: Result Comment: DID NOT GET LABS 06/29/24 Performed By: #### L 100.0100, L500.4050 ####[facility] [address] [place], [address] MCH Normal 27.0-32.0 [facility] Comment on above: Order Comment: Result Comment: DID NOT GET LABS 06/29/24 Performed By: #### L 100.0100, L500.4050 ####[facility] [address] [place], [address] MCHC Normal 32-36 [facility] Comment on above: Order Comment: Result Comment: DID NOT GET LABS 06/29/24 Performed By: #### L 100.0100, L500.4050 ####[facility] [address] [place], [address] MCV Normal 81-99 [facility] Comment on above: Order Comment: Result Comment: DID NOT GET LABS 06/29/24 Performed By: #### L 100.0100, L500.4050 ####[facility] [address] [place], [address] NEUT% Normal 47-70 [facility] Comment on above: Order Comment: Result Comment: DID NOT GET LABS 06/29/24 Performed By: #### L 100.0100, L500.4050 ####[facility] [address] [place], [address] PLT Normal 150-450 [facility] Comment on above: Order Comment: Result Comment: DID NOT GET LABS 06/29/24 Performed By: #### L 100.0100, L500.4050 ####[facility] [address] [place], [address] RBC Normal 4.2-5.4 [facility] Comment on above: Order Comment: Result Comment: DID NOT GET LABS 06/29/24 Performed By: #### L 100.0100, L500.4050 ####[facility] [address] [place], [address] RDW CV Normal 11.6-14.6 [facility] Comment on above: Order Comment: Result Comment: DID NOT GET LABS 06/29/24 Performed By: #### L 100.0100, L500.4050 ####[facility] [address] [place], [address] RDW SD Normal 35.1-43.9 [facility] Comment on above: Order Comment: Result Comment: DID NOT GET LABS 06/29/24 Performed By: #### L 100.0100, L500.4050 ####[facility] [address] [place], [address] WBC Normal 4.4-11.0 [facility] Comment on above: Order Comment: Result Comment: DID NOT GET LABS 06/29/24 Performed By: #### L 100.0100, L500.4050 ####[facility] [address] [place], [address] Comprehensive Metabolic Prof ilon 06-29-2024 ALB Normal 3.5-5.0 [facility] Comment on above: Order Comment: Result Comment: DID NOT GET LABS 06/29/24 Performed By: #### L 100.0100, L500.4050 ####[facility] [address] [place], [address] ALK PHOS Normal 35-104 [facility] Comment on above: Order Comment: Result Comment: DID NOT GET LABS 06/29/24 Performed By: #### L 100.0100, L500.4050 ####[facility] [address] [place], [address] ALT Normal <=34 [facility] Comment on above: Order Comment: Result Comment: DID NOT GET LABS 06/29/24 Performed By: #### L 100.0100, L500.4050 ####[facility] [address] [place], [address] AST Normal <=31 [facility] Comment on above: Order Comment: Result Comment: DID NOT GET LABS 06/29/24 Performed By: #### L 100.0100, L500.4050 ####[facility] [address] [place], [address] BUN Normal - [facility] Comment on above: Order Comment: Result Comment: DID NOT GET LABS 06/29/24 Performed By: #### L 100.0100, L500.4050 ####[facility] [address] [place], [address] BUN/CRE Normal - [facility] Comment on above: Order Comment: Result Comment: DID NOT GET LABS 06/29/24 Performed By: #### L 100.0100, L500.4050 ####[facility] [address] [place], [address] Calcium Normal 7.6-11.0 [facility] Comment on above: Order Comment: Result Comment: DID NOT GET LABS 06/29/24 Performed By: #### L 100.0100, L500.4050 ####[facility] [address] [place], [address] CL Normal 98-108 [facility] Comment on above: Order Comment: Result Comment: DID NOT GET LABS 06/29/24 Performed By: #### L 100.0100, L500.4050 ####[facility] [address] [place], [address] CO2 Normal 21.0-32.0 [facility] Comment on above: Order Comment: Result Comment: DID NOT GET LABS 06/29/24 Performed By: #### L 100.0100, L500.4050 ####[facility] [address] [place], [address] CREAT,SERUM Normal 0.70-1.20 [facility] Comment on above: Order Comment: Result Comment: DID NOT GET LABS 06/29/24 Performed By: #### L 100.0100, L500.4050 ####[facility] [address] [place], [address] eGFR Normal >60 [facility] Comment on above: Order Comment: Result Comment: DID NOT GET LABS 06/29/24 Performed By: #### L 100.0100, L500.4050 ####[facility] [address] [place], [address] GAP Normal 5-15 [facility] Comment on above: Order Comment: Result Comment: DID NOT GET LABS 06/29/24 Performed By: #### L 100.0100, L500.4050 ####[facility] [address] [place], [address] GLU Normal 70-99 [facility] Comment on above: Order Comment: Result Comment: DID NOT GET LABS 06/29/24 Performed By: #### L 100.0100, L500.4050 ####[facility] [address] [place], [address] Potassium Normal 3.3-5.1 [facility] Comment on above: Order Comment: Result Comment: DID NOT GET LABS 06/29/24 Performed By: #### L 100.0100, L500.4050 ####[facility] [address] [place], [address] T BILI Normal 0.00-1.30 [facility] Comment on above: Order Comment: Result Comment: DID NOT GET LABS 06/29/24 Performed By: #### L 100.0100, L500.4050 ####[facility] [address] [place], [address] T PROT Normal 5.9-8.4 [facility] Comment on above: Order Comment: Result Comment: DID NOT GET LABS 06/29/24 Performed By: #### L 100.0100, L500.4050 ####[facility] [address] [place], [address] Comprehensive Metabolic Profil Normal 133-145 [facility] Comment on above: Order Comment: Result Comment: DID NOT GET LABS 06/29/24 Performed By: #### L 100.0100, L500.4050 ####[facility] [address] [place], [address] CBC W/Diff, Automatedon 04-2 Absolute Neut Normal 2.0-7.7 [facility] Comment on above: Order Comment: . Result Comment: UTO X2 Performed By: #### L 100.0100, L500.4050 ####[facility] [address] [place], [address] HCT Normal 37-47 [facility] Comment on above: Order Comment: Result Comment: UTO X2 Performed By: #### L 100.0100, L500.4050 ####[facility] [address] [place], [address] HGB Normal 12.0-15.0 [facility] Comment on above: Order Comment: Result Comment: UTO X2 Performed By: #### L 100.0100, L500.4050 ####[facility] [address] [place], [address] MCH Normal 27.0-32.0 [facility] Comment on above: Order Comment: Result Comment: UTO X2 Performed By: #### L 100.0100, L500.4050 ####[facility] [address] [place], [address] MCHC Normal 32-36 [facility] Comment on above: Order Comment: Result Comment: UTO X2 Performed By: #### L 100.0100, L500.4050 ####[facility] [address] [place], [address] MCV Normal 81-99 [facility] Comment on above: Order Comment: Result Comment: UTO X2 Performed By: #### L 100.0100, L500.4050 ####[facility] [address] [place], [address] NEUT% Normal 47-70 [facility] Comment on above: Order Comment: Result Comment: UTO X2 Performed By: #### L 100.0100, L500.4050 ####[facility] [address] [place], [address] PLT Normal 150-450 [facility] Comment on above: Order Comment: Result Comment: UTO X2 Performed By: #### L 100.0100, L500.4050 ####[facility] [address] [place], [address] RBC Normal 4.2-5.4 [facility] Comment on above: Order Comment: Result Comment: UTO X2 Performed By: #### L 100.0100, L500.4050 ####[facility] [address] [place], [address] RDW CV Normal 11.6-14.6 [facility] Comment on above: Order Comment: Result Comment: UTO X2 Performed By: #### L 100.0100, L500.4050 ####[facility] [address] [place], [address] RDW SD Normal 35.1-43.9 [facility] Comment on above: Order Comment: Result Comment: UTO X2 Performed By: #### L 100.0100, L500.4050 ####[facility] [address] [place], [address] WBC Normal 4.4-11.0 [facility] Comment on above: Order Comment: Result Comment: UTO X2 Performed By: #### L 100.0100, L500.4050 ####[facility] [address] [place], [address] Comprehensive Metabolic Prof ilon 06-28-2024 ALB Normal 3.5-5.0 [facility] Comment on above: Order Comment: Result Comment: UTO X2 Performed By: #### L 100.0100, L500.4050 ####[facility] [address] [place], [address] ALK PHOS Normal 35-104 [facility] Comment on above: Order Comment: Result Comment: UTO X2 Performed By: #### L 100.0100, L500.4050 ####[facility] [address] [place], [address] ALT Normal <=34 [facility] Comment on above: Order Comment: Result Comment: UTO X2 Performed By: #### L 100.0100, L500.4050 ####[facility] [address] [place], [address] AST Normal <=31 [facility] Comment on above: Order Comment: Result Comment: UTO X2 Performed By: #### L 100.0100, L500.4050 ####[facility] [address] [place], [address] BUN Normal 4-19 [facility] Comment on above: Order Comment: Result Comment: UTO X2 Performed By: #### L 100.0100, L500.4050 ####[facility] [address] [place], [address] BUN/CRE Normal 10-20 [facility] Comment on above: Order Comment: Result Comment: UTO X2 Performed By: #### L 100.0100, L500.4050 ####[facility] [address] [place], [address] Calcium Normal 7.6-11.0 [facility] Comment on above: Order Comment: Result Comment: UTO X2 Performed By: #### L 100.0100, L500.4050 ####[facility] [address] [place], [address] CL Normal 98-108 [facility] Comment on above: Order Comment: Result Comment: UTO X2 Performed By: #### L 100.0100, L500.4050 ####[facility] [address] [place], [address] CO2 Normal 21.0-32.0 [facility] Comment on above: Order Comment: Result Comment: UTO X2 Performed By: #### L 100.0100, L500.4050 ####[facility] [address] [place], [address] CREAT,SERUM Normal 0.70-1.20 [facility] Comment on above: Order Comment: Result Comment: UTO X2 Performed By: #### L 100.0100, L500.4050 ####[facility] [address] [place], [address] eGFR Normal >60 [facility] Comment on above: Order Comment: Result Comment: UTO X2 Performed By: #### L 100.0100, L500.4050 ####[facility] [address] [place], [address] GAP Normal 5-15 [facility] Comment on above: Order Comment: Result Comment: UTO X2 Performed By: #### L 100.0100, L500.4050 ####[facility] [address] [place], [address] GLU Normal 70-99 [facility] Comment on above: Order Comment: Result Comment: UTO X2 Performed By: #### L 100.0100, L500.4050 ####[facility] [address] [place], [address] Potassium Normal 3.3-5.1 [facility] Comment on above: Order Comment: Result Comment: UTO X2 Performed By: #### L 100.0100, L500.4050 ####[facility] [address] [place], [address] T BILI Normal 0.00-1.30 [facility] Comment on above: Order Comment: Result Comment: UTO X2 Performed By: #### L 100.0100, L500.4050 ####[facility] [address] [place], [address] T PROT Normal 5.9-8.4 [facility] Comment on above: Order Comment: Result Comment: UTO X2 Performed By: #### L 100.0100, L500.4050 ####[facility] [address] [place], [address] Comprehensive Metabolic Profil Normal 133-145 [facility] Comment on above: Order Comment: Result Comment: UTO X2 Performed By: #### L 100.0100, L500.4050 ####[facility] [address] [place], [address] CBC W/Diff, Automatedon 06-08 Absolute Lymph 2.28 X10 3/uL Normal 0.83-4.51 [facility] Comment on above: Performed By: #### L 100.0100, L506.1001, L501.9985, L503.0106, L501.5200, L501.9520, L500.4050 ####[facility] [address] [place], [address] Absolute Neut 8.9 X10 3/uL High 2.0-7.7 [facility] Comment on above: Performed By: #### L 100.0100, L506.1001, L501.9985, L503.0106, L501.5200, L501.9520, L500.4050 ####[facility] [address] [place], [address] Basophils/100 WBC (Bld) 0.4 % Normal 0-1 [facility] Comment on above: Performed By: #### L 100.0100, L506.1001, L501.9985, L503.0106, L501.5200, L501.9520, L500.4050 ####[facility] [address] [place], [address] Eosinophils/100 WBC (Bld) 3.3 % Normal 0-5 [facility] Comment on above: Performed By: #### L 100.0100, L506.1001, L501.9985, L503.0106, L501.5200, L501.9520, L500.4050 ####[facility] [address] [place], [address] Erythrocyte distribution width (RBC) [Ratio] 14.6 % Normal 11.6-14.6 [facility] Comment on above: Performed By: #### L 100.0100, L506.1001, L501.9985, L503.0106, L501.5200, L501.9520, L500.4050 ####[facility] [address] [place], [address] Hematocrit (Bld) [Volume fraction] 34.5 % Low 37-47 [facility] Comment on above: Performed By: #### L 100.0100, L506.1001, L501.9985, L503.0106, L501.5200, L501.9520, L500.4050 ####[facility] [address] [place], [address] Hemoglobin (Bld) [Mass/Vol] 11.0 g/dL Low 12.0-15.0 [facility] Comment on above: Performed By: #### L 100.0100, L506.1001, L501.9985, L503.0106, L501.5200, L501.9520, L500.4050 ####[facility] [address] [place], [address] IG% 0.600 Normal 0.0-0.9 [facility] Comment on above: Result Comment: IG% - Immature Granulocytes (promyelocytes, myelocytes andmetamyelocytes) > 1% indicates that a LEFT SHIFT is Present. Performed By: #### L 100.0100, L506.1001, L501.9985, L503.0106, L501.5200, L501.9520, L500.4050 ####[facility] [address] [place], [address] Lymphocytes/100 WBC (Bld) 18.0 % Low 19-41 [facility] Comment on above: Performed By: #### L 100.0100, L506.1001, L501.9985, L503.0106, L501.5200, L501.9520, L500.4050 ####[facility] [address] [place], [address] MCH (RBC) [Entitic mass] 31.6 pg Normal 27.0-32.0 [facility] Comment on above: Performed By: #### L 100.0100, L506.1001, L501.9985, L503.0106, L501.5200, L501.9520, L500.4050 ####[facility] [address] [place], [address] MCHC (RBC) [Mass/Vol] 31.9 g/dL Low 32-36 [facility] Comment on above: Performed By: #### L 100.0100, L506.1001, L501.9985, L503.0106, L501.5200, L501.9520, L500.4050 ####[facility] [address] [place], [address] MCV (RBC) [Entitic vol] 99.1 fL High 81-99 [facility] Comment on above: Performed By: #### L 100.0100, L506.1001, L501.9985, L503.0106, L501.5200, L501.9520, L500.4050 ####[facility] [address] [place], [address] Monocytes/100 WBC (Bld) 8.0 % Normal 0-10 [facility] Comment on above: Performed By: #### L 100.0100, L506.1001, L501.9985, L503.0106, L501.5200, L501.9520, L500.4050 ####[facility] [address] [place], [address] Neutrophils/100 WBC (Bld) 69.7 % Normal 47-70 [facility] Comment on above: Performed By: #### L 100.0100, L506.1001, L501.9985, L503.0106, L501.5200, L501.9520, L500.4050 ####[facility] [address] [place], [address] Nucleated RBC (Bld) [#/Vol] 0 10*3/uL Normal 0-5 [facility] Comment on above: Performed By: #### L 100.0100, L506.1001, L501.9985, L503.0106, L501.5200, L501.9520, L500.4050 ####[facility] [address] [place], [address] Platelet mean volume (Bld) [Entitic vol] 11.9 fL Normal 6.2-12.0 [facility] Comment on above: Performed By: #### L 100.0100, L506.1001, L501.9985, L503.0106, L501.5200, L501.9520, L500.4050 ####[facility] [address] [place], [address] Platelets (Bld) [#/Vol] 235 10*3/uL Normal 150-450 [facility] Comment on above: Performed By: #### L 100.0100, L506.1001, L501.9985, L503.0106, L501.5200, L501.9520, L500.4050 ####[facility] [address] [place], [address] RBC (Bld) [#/Vol] 3.48 10*6/uL Low 4.2-5.4 [facility] Comment on above: Performed By: #### L 100.0100, L506.1001, L501.9985, L503.0106, L501.5200, L501.9520, L500.4050 ####[facility] [address] [place], [address] RDW SD 53.0 fl High 35.1-43.9 [facility] Comment on above: Performed By: #### L 100.0100, L506.1001, L501.9985, L503.0106, L501.5200, L501.9520, L500.4050 ####[facility] [address] [place], [place], [id number]) WBC (Bld) [#/Vol] 12.7 10*3/uL High 4.4-11.0 [facility] Comment on above: Performed By: #### L 100.0100, L506.1001, L501.9985, L503.0106, L501.5200, L501.9520, L500.4050 ####[facility] [address] [place], [address] Comprehensive Metabolic Prof akon 06-21-2024 Albumin [Mass/Vol] 3.6 g/dL Normal 3.5-5.0 [facility] Comment on above: Performed By: #### L 100.0100, L506.1001, L501.9985, L503.0106, L501.5200, L501.9520, L500.4050 ####[facility] [address] [place], [address] Albumin/Globulin [Mass ratio] 1.1 {ratio} Normal 0.9-2.4 [facility] Comment on above: Performed By: #### L 100.0100, L506.1001, L501.9985, L503.0106, L501.5200, L501.9520, L500.4050 ####[facility] [address] [place], [address] ALK PHOS 97 U/L Normal 35-104 [facility] Comment on above: Performed By: #### L 100.0100, L506.1001, L501.9985, L503.0106, L501.5200, L501.9520, L500.4050 ####[facility] [address] [place], [address] ALT [Catalytic activity/Vol] 23 U/L Normal <=34 [facility] Comment on above: Performed By: #### L 100.0100, L506.1001, L501.9985, L503.0106, L501.5200, L501.9520, L500.4050 ####[facility] [address] [place], [address] AST [Catalytic activity/Vol] 19 U/L Normal <=31 [facility] Comment on above: Performed By: #### L 100.0100, L506.1001, L501.9985, L503.0106, L501.5200, L501.9520, L500.4050 ####[facility] [address] [place], [address] Bilirubin [Mass/Vol] 0.34 mg/dL Normal 0.00-1.30 [facility] Comment on above: Performed By: #### L 100.0100, L506.1001, L501.9985, L503.0106, L501.5200, L501.9520, L500.4050 ####[facility] [address] [place], [address] BUN/CRE 34.3 RATIO High 10-20 [facility] Comment on above: Performed By: #### L 100.0100, L506.1001, L501.9985, L503.0106, L501.5200, L501.9520, L500.4050 ####[facility] [address] [place], [address] Calcium [Mass/Vol] 9.6 mg/dL Normal 7.6-11.0 [facility] Comment on above: Performed By: #### L 100.0100, L506.1001, L501.9985, L503.0106, L501.5200, L501.9520, L500.4050 ####[facility] [address] [place], [address] Chloride [Moles/Vol] 92 mmol/L Low 98-108 [facility] Comment on above: Performed By: #### L 100.0100, L506.1001, L501.9985, L503.0106, L501.5200, L501.9520, L500.4050 ####[facility] [address] [place], [address] CO2 [Moles/Vol] 31.5 mmol/L Normal 21.0-32.0 [facility] Comment on above: Performed By: #### L 100.0100, L506.1001, L501.9985, L503.0106, L501.5200, L501.9520, L500.4050 ####[facility] [address] [place], [address] Creatinine [Mass/Vol] 0.43 mg/dL Low 0.70-1.20 [facility] Comment on above: Performed By: #### L 100.0100, L506.1001, L501.9985, L503.0106, L501.5200, L501.9520, L500.4050 ####[facility] [address] [place], [address] GAP 10 Normal 5-15 [facility] Comment on above: Performed By: #### L 100.0100, L506.1001, L501.9985, L503.0106, L501.5200, L501.9520, L500.4050 ####[facility] [address] [place], [address] GFR/1.73 sq M.predicted among non-blacks MDRD (S/P/Bld) [Vol rate/Area] 126 mL/min/{1.73_m2} Normal >60 [facility] Comment on above: Result Comment: mL/m in/1.73m2 CKD-EPI Creatinine Equation (2020) Performed By: #### L 100.0100, L506.1001, L501.9985, L503.0106, L501.5200, L501.9520, L500.4050 ####[facility] [address] [place], [address] Globulin (S) [Mass/Vol] 3.4 g/dL Normal 2.2-4.2 [facility] Comment on above: Performed By: #### L 100.0100, L506.1001, L501.9985, L503.0106, L501.5200, L501.9520, L500.4050 ####[facility] [address] [place], [address] Glucose [Mass/Vol] 80 mg/dL Normal 70-99 [facility] Comment on above: Performed By: #### L 100.0100, L506.1001, L501.9985, L503.0106, L501.5200, L501.9520, L500.4050 ####[facility] [address] [place], [address] Potassium [Moles/Vol] 4.0 mmol/L Normal 3.3-5.1 [facility] Comment on above: Performed By: #### L 100.0100, L506.1001, L501.9985, L503.0106, L501.5200, L501.9520, L500.4050 ####[facility] [address] [place], [address] Sodium [Moles/Vol] 134 mmol/L Normal 133-145 [facility] Comment on above: Performed By: #### L 100.0100, L506.1001, L501.9985, L503.0106, L501.5200, L501.9520, L500.4050 ####[facility] [address] [place], [address] T PROT 7.0 g/dL Normal 5.9-8.4 [facility] Comment on above: Performed By: #### L 100.0100, L506.1001, L501.9985, L503.0106, L501.5200, L501.9520, L500.4050 ####[facility] [address] [place], [address] Urea nitrogen [Mass/Vol] 15 mg/dL Normal 4-19 [facility] Comment on above: Performed By: #### L 100.0100, L506.1001, L501.9985, L503.0106, L501.5200, L501.9520, L500.4050 ####[facility] [address] [place], [address] Hemoglobin A1con 06-21-2024 HbA1c (Bld) [Mass fraction] 5.0 % Normal <=5.6 [facility] Comment on above: Result Comment: Norm al < 5.7 % Prediabetic 5.7 - 6.4 % Diabetic >or= 6.5 % Please note range changes. Performed By: #### L 100.0100, L506.1001, L501.9985, L503.0106, L501.5200, L501.9520, L500.4050 ####[facility] [address] [place], [address] Magnesiumon 06-21-2024 Magnesium [Mass/Vol] 2.1 mg/dL Normal 1.5-2.2 [facility] Comment on above: Performed By: #### L 100.0100, L506.1001, L501.9985, L503.0106, L501.5200, L501.9520, L500.4050 ####[facility] [address] [place], [place], [id number] Thyroid Stim Hormone (TSH)on 06-21-2024 TSH 3.960 uIU/mL Normal 0.300-4.200 [facility] Comment on above: Performed By: #### L 100.0100, L506.1001, L501.9985, L503.0106, L501.5200, L501.9520, L500.4050 ####[facility] [address] [facility] [place], [place], [id number] Vitamin B12on 06-21-2024 Cobalamin (Vitamin B12) [Mass/Vol] 755 pg/mL Normal 180-914 [facility] Comment on above: Performed By: #### L 100.0100, L506.1001, L501.9985, L503.0106, L501.5200, L501.9520, L500.4050 ####[facility] [address] [facility] [place], [place], [id number] Vitamin D,25 Hydroxyon 06-21 Vitamin D 25-OH 24.1 ng/mL Low 30-100 [facility] Comment on above: Result Comment: Darcie min D StatusDeficiency: <20 ng/mL (50nmol/L)Insufficiency: 20-30 ng/mL (50-75 nmol/L)Sufficiency: 30-100 ng/mL (75-250 nmol/L)Toxicity: >100 ng/mL (>250 nmol/L) Performed By: #### L 100.0100, L506.1001, L501.9985, L503.0106, L501.5200, L501.9520, L500.4050 ####[facility] [address] [place], [address] CBC-Complete Blood Cnt No Yesenia lizon 06-18-2024 Erythrocyte distribution width (RBC) [Ratio] 14.5 % Normal 11.6-14.6 [facility] Comment on above: Order Comment: . Performed By: #### L 100.0500, L500.4050 ####[facility] [address] [place], [address] Hematocrit (Bld) [Volume fraction] 34.9 % Low 37-47 [facility] Comment on above: Order Comment: . Performed By: #### L 100.0500, L500.4050 ####[facility] [address] [place], [address] Hemoglobin (Bld) [Mass/Vol] 10.9 g/dL Low 12.0-15.0 [facility] Comment on above: Order Comment: . Performed By: #### L 100.0500, L500.4050 ####[facility] [address] [place], [address] MCH (RBC) [Entitic mass] 31.6 pg Normal 27.0-32.0 [facility] Comment on above: Order Comment: . Performed By: #### L 100.0500, L500.4050 ####[facility] [address] [place], [address] MCHC (RBC) [Mass/Vol] 31.2 g/dL Low 32-36 [facility] Comment on above: Order Comment: . Performed By: #### L 100.0500, L500.4050 ####[facility] [address] [place], [address] MCV (RBC) [Entitic vol] 101.2 fL High 81-99 [facility] Comment on above: Order Comment: . Performed By: #### L 100.0500, L500.4050 ####[facility] [address] [place], [address] Platelet mean volume (Bld) [Entitic vol] 11.3 fL Normal 6.2-12.0 [facility] Comment on above: Order Comment: . Performed By: #### L 100.0500, L500.4050 ####[facility] [address] [place], [address] Platelets (Bld) [#/Vol] 212 10*3/uL Normal 150-450 [facility] Comment on above: Order Comment: . Performed By: #### L 100.0500, L500.4050 ####[facility] [address] [place], [address] RBC (Bld) [#/Vol] 3.45 10*6/uL Low 4.2-5.4 [facility] Comment on above: Order Comment: . Performed By: #### L 100.0500, L500.4050 ####[facility] [address] [place], [address] RDW SD 54.3 fl High 35.1-43.9 [facility] Comment on above: Order Comment: . Performed By: #### L 100.0500, L500.4050 ####[facility] [address] [place], [address] WBC (Bld) [#/Vol] 12.3 10*3/uL High 4.4-11.0 [facility] Comment on above: Order Comment: . Performed By: #### L 100.0500, L500.4050 ####[facility] [address] [place], [address] Comprehensive Metabolic Prof ilon 06-18-2024 Albumin [Mass/Vol] 3.5 g/dL Normal 3.5-5.0 [facility] Comment on above: Order Comment: . Performed By: #### L 100.0500, L500.4050 ####[facility] [address] [place], [address] Albumin/Globulin [Mass ratio] 1.1 {ratio} Normal 0.9-2.4 [facility] Comment on above: Order Comment: .1 Performed By: #### L 100.0500, L500.4050 ####[facility] [address] [place], [address] ALK PHOS 93 U/L Normal 35-104 [facility] Comment on above: Order Comment: . Performed By: #### L 100.0500, L500.4050 ####[facility] [address] [place], [address] ALT [Catalytic activity/Vol] 26 U/L Normal <=34 [facility] Comment on above: Order Comment: . Performed By: #### L 100.0500, L500.4050 ####[facility] [address] [place], [address] AST [Catalytic activity/Vol] 19 U/L Normal <=31 [facility] Comment on above: Order Comment: . Performed By: #### L 100.0500, L500.4050 ####[facility] [address] [place], [address] Bilirubin [Mass/Vol] 0.25 mg/dL Normal 0.00-1.30 [facility] Comment on above: Order Comment: . Performed By: #### L 100.0500, L500.4050 ####[facility] [address] [place], [address] BUN/CRE 44.5 RATIO High 10-20 [facility] Comment on above: Order Comment: .1 Performed By: #### L 100.0500, L500.4050 ####[facility] [address] [place], [address] Calcium [Mass/Vol] 9.8 mg/dL Normal 7.6-11.0 [facility] Comment on above: Order Comment: . Performed By: #### L 100.0500, L500.4050 ####[facility] [address] [place], [address] Chloride [Moles/Vol] 94 mmol/L Low 98-108 [facility] Comment on above: Order Comment: . Performed By: #### L 100.0500, L500.4050 ####[facility] [address] [place], [address] CO2 [Moles/Vol] 33.5 mmol/L High 21.0-32.0 [facility] Comment on above: Order Comment: . Performed By: #### L 100.0500, L500.4050 ####[facility] [address] [place], [address] Creatinine [Mass/Vol] 0.40 mg/dL Low 0.70-1.20 [facility] Comment on above: Order Comment: . Performed By: #### L 100.0500, L500.4050 ####[facility] [address] [place], [address] GAP 10 Normal 5-15 [facility] Comment on above: Order Comment: . Performed By: #### L 100.0500, L500.4050 ####[facility] [address] [place], [address] GFR/1.73 sq M.predicted among non-blacks MDRD (S/P/Bld) [Vol rate/Area] 127 mL/min/{1.73_m2} Normal >60 [facility] Comment on above: Order Comment: . Result Comment: mL/m in/1.73m2 CKD-EPI Creatinine Equation (2020) Performed By: #### L 100.0500, L500.4050 ####[facility] [address] [place], [address] Globulin (S) [Mass/Vol] 3.3 g/dL Normal 2.2-4.2 [facility] Comment on above: Order Comment: . Performed By: #### L 100.0500, L500.4050 ####[facility] [address] [place], [address] Glucose [Mass/Vol] 92 mg/dL Normal 70-99 [facility] Comment on above: Order Comment: . Performed By: #### L 100.0500, L500.4050 ####[facility] [address] [place], [address] Potassium [Moles/Vol] 4.6 mmol/L Normal 3.3-5.1 [facility] Comment on above: Order Comment: . Performed By: #### L 100.0500, L500.4050 ####[facility] [address] [place], [address] Sodium [Moles/Vol] 138 mmol/L Normal 133-145 [facility] Comment on above: Order Comment: . Performed By: #### L 100.0500, L500.4050 ####[facility] [address] [place], [address] T PROT 6.8 g/dL Normal 5.9-8.4 [facility] Comment on above: Order Comment: . Performed By: #### L 100.0500, L500.4050 ####[facility] [address] [place], [address] Urea nitrogen [Mass/Vol] 18 mg/dL Normal 4-19 [facility] Comment on above: Order Comment: Performed By: #### L 100.0500, L500.4050 ####[facility] [address] [place], [address] .Auto Diffon 06-14-2024 Basophil, Absolute 0.1 10 3/mcL Normal 0.0-0.3 [facility] Comment on above: Performed By: #### G FR, BMP, CBC, ANEU, ADIFF ####[address] [address] Basophils/100 WBC (Bld) 0.5 % Normal 0.0-2.5 [facility] Comment on above: Performed By: #### G FR, BMP, CBC, ANEU, ADIFF ####[address] [address] Eosinophil, Absolute 0.7 10 3/mcL Normal 0.0-0.7 [facility] Comment on above: Performed By: #### G FR, BMP, CBC, ANEU, ADIFF ####[address] [address] Eosinophils/100 WBC (Bld) 6.0 % Normal 0.0-6.0 [facility] Comment on above: Performed By: #### G FR, BMP, CBC, ANEU, ADIFF ####[address] [address] Lymphocyte, Absolute 2.6 10 3/mcL Normal 0.9-4.3 [facility] Comment on above: Performed By: #### G FR, BMP, CBC, ANEU, ADIFF ####[address] [address] Lymphocytes/100 WBC (Bld) 21.6 % Normal 20.0-40.0 [facility] Comment on above: Performed By: #### G FR, BMP, CBC, ANEU, ADIFF ####[address] [address] Monocyte, Absolute 1.1 10 3/mcL Normal 0.1-1.4 [facility] Comment on above: Performed By: #### G FR, BMP, CBC, ANEU, ADIFF ####[place] [address] [place] [address] Monocytes/100 WBC (Bld) 9.5 % Normal 2.0-13.0 [facility] Comment on above: Performed By: #### G FR, BMP, CBC, ANEU, ADIFF ####[place] [address] [place] [address] Neutrophils/100 WBC (Bld) 62.4 % Normal 50.0-75.0 [facility] Comment on above: Performed By: #### G FR, BMP, CBC, ANEU, ADIFF ####[address] [address] .GFRon 06-14-2024 GFR/1.73 sq M.predicted among non-blacks MDRD (S/P/Bld) [Vol rate/Area] mL/min/{1.73_m2} Normal [facility] Comment on above: Result Comment: Stag es of Chronic Kidney Disease (CKD)Stage Description eGFR(ml/min/1.73 sq.m.)CKD 1 Normal kidney function or >=90 normal kindney function with possible kidney damage (ex. Proteinuria)CKD 2 Kidney damage with mild loss 60-89 of kidney functionCKD 3a Mild to moderate loss of kidney 45-59 functionCKD 3b Moderate to severe loss of 30-44 of kindey function CKD 4 Severe loss of kidney function 15-29CKD 5 Kidney failure <15Note: (go live 2024) the eGFR calculation was updated to the KD-EPI creatinine equation without a race factor to calculate theeGFR results. Performed By: #### G FR, BMP, CBC, ANEU, ADIFF ####[place] [address] [place] [address] .NEUABSon 06-14-2024 Neutrophil, Absolute 7.4 10 3/mcL Normal 2.3-8.1 [facility] Comment on above: Performed By: #### G FR, BMP, CBC, ANEU, ADIFF ####[place] [address] [place] [address] BMPon 06-14-2024 CO2 [Moles/Vol] mmol/L Critically abnormal 22-32 [facility] Comment on above: Performed By: #### G FR, BMP, CBC, ANEU, ADIFF ####[place] [id number] Electrolyte Balance Unable to Calculate Normal 4.0-15. [address] [facility] Comment on above: Result Comment: Unab le to calculate this test result accurately. Results used to calculate this test are outside the reportable range. Performed By: #### G FR, BMP, CBC, ANEU, ADIFF ####[place] [address] BUN/Creatinine Ratio 34.8 ratio High 10.0-22.0 [facility] Comment on above: Performed By: #### G FR, BMP, CBC, ANEU, ADIFF ####[address] [address] Calcium [Mass/Vol] 9.7 mg/dL Normal 8.7-10.4 [facility] Comment on above: Performed By: #### G FR, BMP, CBC, ANEU, ADIFF ####[address] [address] Chloride [Moles/Vol] 91 mmol/L Low 98-110 [facility] Comment on above: Performed By: #### G FR, BMP, CBC, ANEU, ADIFF ####[place] [address] Creatinine [Mass/Vol] 0.46 mg/dL Low 0.50-1.20 [facility] Comment on above: Result Comment: Test ing performed on [employer] analyzer using enzymatic creatinine methodology. Performed By: #### G FR, BMP, CBC, ANEU, ADIFF ####[address] [address] Glucose [Mass/Vol] 90 mg/dL Normal 70-110 [facility] Comment on above: Performed By: #### G FR, BMP, CBC, ANEU, ADIFF ####[address] [address] Potassium [Moles/Vol] 4.2 mmol/L Normal 3.5-5.0 [facility] Comment on above: Performed By: #### G FR, BMP, CBC, ANEU, ADIFF ####[place] [address] Sodium [Moles/Vol] 137 mmol/L Normal 136-145 [facility] Comment on above: Performed By: #### G FR, BMP, CBC, ANEU, ADIFF ####[place] [address] Urea nitrogen [Mass/Vol] 16.0 mg/dL Normal 8.0-22.0 [facility] Comment on above: Performed By: #### G FR, BMP, CBC, ANEU, ADIFF ####[place] [address] CBCon 06-14-2024 Erythrocyte distribution width (RBC) [Ratio] 15.4 % Normal 11.5-15.5 [facility] Comment on above: Performed By: #### G FR, BMP, CBC, ANEU, ADIFF ####[place] [address] Hematocrit (Bld) [Volume fraction] 36.3 % Normal 34.0-46.0 [facility] Comment on above: Performed By: #### G FR, BMP, CBC, ANEU, ADIFF ####[place] [address] Hgb 11.9 G/dL Low 12.0-16.0 [facility] Comment on above: Performed By: #### G FR, BMP, CBC, ANEU, ADIFF ####[place] [address] MCH (RBC) [Entitic mass] 32.6 pg Normal 27.0-33.0 [facility] Comment on above: Performed By: #### G FR, BMP, CBC, ANEU, ADIFF ####[place] [address] MCHC 32.8 G/dL Normal 32.0-36.0 [facility] Comment on above: Performed By: #### G FR, BMP, CBC, ANEU, ADIFF ####[place] [address] MCV (RBC) [Entitic vol] 99.3 fL High 80.0-99.0 [facility] Comment on above: Performed By: #### G FR, BMP, CBC, ANEU, ADIFF ####[place] [address] Platelet 234 10 3/mcL Normal 150-450 [facility] Comment on above: Performed By: #### G FR, BMP, CBC, ANEU, ADIFF ####[place] [address] Platelet mean volume (Bld) [Entitic vol] 8.4 fL Normal 6.6-10.5 [facility] Comment on above: Performed By: #### G FR, BMP, CBC, ANEU, ADIFF ####[place] [address] RBC 3.66 10 6/mcL Low 4.10-5.30 [facility] Comment on above: Performed By: #### G FR, BMP, CBC, ANEU, ADIFF ####[place] [address] WBC 11.9 10 3/mcL High 4.5-10.8 [facility] Comment on above: Performed By: #### G FR, BMP, CBC, ANEU, ADIFF ####[place] [address] .Auto Diffon 06-07-2024 Basophil, Absolute 0.0 10 3/mcL Normal 0.0-0.3 [facility] Comment on above: Performed By: #### A DAISY, BMP, CBC, ADIFF, GFR ####[place] [address] Basophils/100 WBC (Bld) 0.2 % Normal 0.0-2.5 [facility] Comment on above: Performed By: #### A DAISY, BMP, CBC, ADIFF, GFR ####[place] [address] Eosinophil, Absolute 0.5 10 3/mcL Normal 0.0-0.7 [facility] Comment on above: Performed By: #### A DAISY, BMP, CBC, ADIFF, GFR ####[address] [address] Eosinophils/100 WBC (Bld) 5.0 % Normal 0.0-6.0 [facility] Comment on above: Performed By: #### A DAISY, BMP, CBC, ADIFF, GFR ####[address] [address] Lymphocyte, Absolute 1.1 10 3/mcL Normal 0.9-4.3 [facility] Comment on above: Performed By: #### A DAISY, BMP, CBC, ADIFF, GFR ####[address] [address] Lymphocytes/100 WBC (Bld) 11.3 % Low 20.0-40.0 [facility] Comment on above: Performed By: #### A DAISY, BMP, CBC, ADIFF, GFR ####[address] [address] Monocyte, Absolute 0.9 10 3/mcL Normal 0.1-1.4 [facility] Comment on above: Performed By: #### A DAISY, BMP, CBC, ADIFF, GFR ####[address] [address] Monocytes/100 WBC (Bld) 8.7 % Normal 2.0-13.0 [facility] Comment on above: Performed By: #### A DAISY, BMP, CBC, ADIFF, GFR ####[address] [address] Neutrophils/100 WBC (Bld) 74.8 % Normal 50.0-75.0 [facility] Comment on above: Performed By: #### A DAISY, BMP, CBC, ADIFF, GFR ####[address] [address] .GFRon 06-07-2024 GFR/1.73 sq M.predicted among non-blacks MDRD (S/P/Bld) [Vol rate/Area] mL/min/{1.73_m2} Normal [facility] Comment on above: Result Comment: Stag es of Chronic Kidney Disease (CKD)Stage Description eGFR(ml/min/1.73 sq.m.)CKD 1 Normal kidney function or >=90 normal kindney function with possible kidney damage (ex. Proteinuria)CKD 2 Kidney damage with mild loss 60-89 of kidney functionCKD 3a Mild to moderate loss of kidney 45-59 functionCKD 3b Moderate to severe loss of 30-44 of kindey function CKD 4 Severe loss of kidney function 15-29CKD 5 Kidney failure <15Note: (go live 2024) the eGFR calculation was updated to the KD-EPI creatinine equation without a race factor to calculate theeGFR results. Performed By: #### A DAISY, BMP, CBC, ADIFF, GFR ####[address] [address] .NEUABSon 06-07-2024 Neutrophil, Absolute 7.5 10 3/mcL Normal 2.3-8.1 [facility] Comment on above: Performed By: #### A DAISY, BMP, CBC, ADIFF, GFR ####[place] [address] BMPon 06-07-2024 CO2 [Moles/Vol] mmol/L Critically abnormal 22-32 [facility] Comment on above: Performed By: #### A DAISY, BMP, CBC, ADIFF, GFR ####[place] [address] Electrolyte Balance Unable to Calculate Normal 4.0-15. 0 [facility] Comment on above: Result Comment: Unab le to calculate this test result accurately. Results used to calculate this test are outside the reportable range. Performed By: #### A DAISY, BMP, CBC, ADIFF, GFR ####[place] [address] BUN/Creatinine Ratio 31.4 ratio High 10.0-22.0 [facility] Comment on above: Performed By: #### A DAISY, BMP, CBC, ADIFF, GFR ####[place] [address] Calcium [Mass/Vol] 9.3 mg/dL Normal 8.7-10.4 [facility] Comment on above: Performed By: #### A DAISY, BMP, CBC, ADIFF, GFR ####[place] [id number] Chloride [Moles/Vol] 92 mmol/L Low 98-110 [facility] Comment on above: Performed By: #### A DAISY, BMP, CBC, ADIFF, GFR ####[address] [address] Creatinine [Mass/Vol] 0.35 mg/dL Low 0.50-1.20 [facility] Comment on above: Result Comment: Test ing performed on PlaceBlogger analyzer using enzymatic creatinine methodology. Performed By: #### A DAISY, BMP, CBC, ADIFF, GFR ####[address] [address] Glucose [Mass/Vol] 83 mg/dL Normal 70-110 [facility] Comment on above: Performed By: #### A DAISY, BMP, CBC, ADIFF, GFR ####[address] [address] Potassium [Moles/Vol] 4.4 mmol/L Normal 3.5-5.0 [facility] Comment on above: Performed By: #### A DAISY, BMP, CBC, ADIFF, GFR ####[place] [address] Sodium [Moles/Vol] 136 mmol/L Normal 136-145 [facility] Comment on above: Performed By: #### A DAISY, BMP, CBC, ADIFF, GFR ####[place] [address] Urea nitrogen [Mass/Vol] 11.0 mg/dL Normal 8.0-22.0 [facility] Comment on above: Performed By: #### A DAISY, BMP, CBC, ADIFF, GFR ####[address] [address] CBCon 06-07-2024 Erythrocyte distribution width (RBC) [Ratio] 15.2 % Normal 11.5-15.5 [facility] Comment on above: Performed By: #### A DAISY, BMP, CBC, ADIFF, GFR ####[place] [address] Hematocrit (Bld) [Volume fraction] 35.8 % Normal 34.0-46.0 [facility] Comment on above: Performed By: #### A DAISY, BMP, CBC, ADIFF, GFR ####[place] [address] Hgb 11.4 G/dL Low 12.0-16.0 [facility] Comment on above: Performed By: #### A DAISY, BMP, CBC, ADIFF, GFR ####[place] [address] MCH (RBC) [Entitic mass] 31.5 pg Normal 27.0-33.0 [facility] Comment on above: Performed By: #### A DAISY, BMP, CBC, ADIFF, GFR ####[place] [address] MCHC 31.9 G/dL Low 32.0-36.0 [facility] Comment on above: Performed By: #### A DAISY, BMP, CBC, ADIFF, GFR ####[place] [address] MCV (RBC) [Entitic vol] 98.7 fL Normal 80.0-99.0 [facility] Comment on above: Performed By: #### A DAISY, BMP, CBC, ADIFF, GFR ####[place] [address] Platelet 185 10 3/mcL Normal 150-450 [facility] Comment on above: Performed By: #### A DAISY, BMP, CBC, ADIFF, GFR ####[place] [address] Platelet mean volume (Bld) [Entitic vol] 9.0 fL Normal 6.6-10.5 [facility] Comment on above: Performed By: #### A DAISY, BMP, CBC, ADIFF, GFR ####[place] [address] RBC 3.63 10 6/mcL Low 4.10-5.30 [facility] Comment on above: Performed By: #### A DAISY, BMP, CBC, ADIFF, GFR ####[place] [address] WBC 10.0 10 3/mcL Normal 4.5-10.8 [facility] Comment on above: Performed By: #### A DAISY, BMP, CBC, ADIFF, GFR ####[facility] [place] [address] Tal 06-03-2024 CNPN Telephone (INTMWS) SIA ABUDL ([id number]) 1980 F Date Time Provider Department 06/03/24 MARILEE THAKUR INTMWS During your visit today, we recorded the following information about you: Pepper Walsh RN 06/03/2024 4:12 PM Signed Clarence Calderon calling with [facility] to update provider that due to patient having a prolonged stay in hospital, there are discontinuing her home care nursing and therapy orders at this time. Pepper Walsh RN Allergies As of Date: 06/03/2024 Noted Allergy Reaction BEE STING 02/28/2023 10 - Anaphylaxis BUMEX (BUMETANIDE) 03/12/2024 6 - Diarrhea 14 - Other: See Comments Comments: chula GHULAM (PHENYTOIN SODIUM EXTEND*01/28/2006 Date Reviewed: 05/10/2024 Reviewed by: María Avila MA - Fully Assessed Reason for Visit: Home Health Recertification [Other] Prescriptions as of 06/03/2024 - zqcmqca-qcmnebkms-sxgk min D3 (OYSTER SHELL CALCIUM-VITAMIN D) 500 mg-5 mcg (200 unit) per tablet Take 1 tablet by mouth two times a day with meals. - sertraline (ZOLOFT) 25 mg tablet Take 1 tablet by mouth once daily. - torsemide (DEMADEX) 20 mg tablet Take an extra 20 a day mgs In addition to current dose of 40 mgs 2 times on days you have more than 5 pounds of water weight gain - fluticasone-vilanterol (BREO ELLIPTA) 100-25 mcg/dose inhaler Inhale 1 Inhalation as instructed once daily. - IRAIDA 0.35 mg tablet Take 1 tablet by mouth once daily. - EPINEPHrine (EPIPEN) 0.3 mg/0.3 mL auto-injector INJECT 1 PEN INTO LATERAL THIGH DIRECTED FOR ALLERGIC REACTIONS TO BEE/WASP STINGS MAY REPEAT IN 5-15 MINUTES IF SYMPTOMS PERSIST * *STAFF REORDER, 4 DAYS IN ADVANCE* - torsemide (DEMADEX) 20 mg tablet Take 2 tablets by mouth two times a day. - MEDICAL SUPPLY Lymphedema compression pump to both legs 1 hour daily. 60 mm Hg. New machine. - mometasone-formoterol (DULERA) 100-5 mcg/actuation inhaler Inhale 2 Puffs as instructed two times a day. - fluticasone (FLONASE) 50 mcg/actuation nasal spray INSTILL 2 SPRAYS IN EACH NOSTRIL DAILY - diphenoxylate-atropine (LOMOTIL) 2.5-0.025 mg per tablet Take 1 tablet by mouth four times a day as needed. - ondansetron (ZOFRAN) 4 mg tablet Take by mouth every 8 hours as needed for nausea/vomiting. - aspirin 81 mg chewable tablet Take 81 mg by mouth once daily. - carvedilol (COREG) 3.125 mg tablet Take 1 tablet by mouth two times a day. - ammonium lactate (LAC-HYDRIN) 12 % cream APPLY TOPICALLY TO AFFECTED AREA(S) ON LEGS AT BEDTIME - multivitamin-ferrous fumarate-folic acid (CERTAVITE-ANTIOXIDANT ) Take 1 tablet by mouth once daily. - Rwecd-0-LSH-EPA-Fish Oil 1,000 mg (120 mg-180 mg) cap Take 1 capsule by mouth once daily. - levothyroxine (SYNTHROID) 100 mcg tablet take one tablet by mouth daily one hour before breakfast - nystatin (NYAMYC) powder APPLY TOPICALLY TWICE DAILY TO AFFECTED AREA(S) ON ABDOMINAL FOLDS - clotrimazole (LOTRIMIN) 1 % cream APPLY TOPICALLY TO AFFECTED AREA(S) ON BILATERAL GROIN TWICE DAILY - albuterol HFA (VENTOLIN HFA) 90 mcg/actuation inhaler Inhale 2 Puffs as instructed every 4 hours as needed for wheezing/shortness of breath. - acetaminophen (TYLENOL EXTRA STRENGTH) 500 mg tablet Take 2 tablets by mouth every 8 hours as needed for pain (For knee pain). - Gauze Bandage 2 X 2 bndg Apply 1 application to affected area twice daily. - cetirizine (ZYRTEC) 10 mg tablet Take [...] 4pm Dx:Q87.1 Problem List As Of Date 06/03/2024 Noted Resolved Other malaise and fatigue [R53.81, [...] (chronic) (peripheral) [I8*12/14/2014 Acquired hypothyroidism [E03.9] 12/14/2014 (more content not included)... Normal [facility] .Auto Diffon 05-31-2024 Basophil, Absolute 0.1 10 3/mcL Normal 0.0-0.3 [facility] Comment on above: Performed By: #### A DIFF, ANEU, CBC, GFR, BMP ####[address] [address] Basophils/100 WBC (Bld) 0.7 % Normal 0.0-2.5 [facility] Comment on above: Performed By: #### A DIFF, ANEU, CBC, GFR, BMP ####[address] [address] Eosinophil, Absolute 0.6 10 3/mcL Normal 0.0-0.7 [facility] Comment on above: Performed By: #### A DIFF, ANEU, CBC, GFR, BMP ####[address] [address] Eosinophils/100 WBC (Bld) 5.5 % Normal 0.0-6.0 [facility] Comment on above: Performed By: #### A DIFF, ANEU, CBC, GFR, BMP ####[address] [address] Lymphocyte, Absolute 1.0 10 3/mcL Normal 0.9-4.3 [facility] Comment on above: Performed By: #### A DIFF, ANEU, CBC, GFR, BMP ####[address] [address] Lymphocytes/100 WBC (Bld) 8.9 % Low 20.0-40.0 [facility] Comment on above: Performed By: #### A DIFF, ANEU, CBC, GFR, BMP ####[address] [address] Monocyte, Absolute 1.0 10 3/mcL Normal 0.1-1.4 [facility] Comment on above: Performed By: #### A DIFF, ANEU, CBC, GFR, BMP ####[address] [address] Monocytes/100 WBC (Bld) 9.3 % Normal 2.0-13.0 [facility] Comment on above: Performed By: #### A DIFF, ANEU, CBC, GFR, BMP ####[place] [address] [address] [place] [address] Neutrophils/100 WBC (Bld) 75.6 % High 50.0-75.0 [facility] Comment on above: Performed By: #### A DIFF, ANEU, CBC, GFR, BMP ####[address] [address] .GFRon 05-31-2024 GFR/1.73 sq M.predicted among non-blacks MDRD (S/P/Bld) [Vol rate/Area] mL/min/{1.73_m2} Normal [facility] Comment on above: Result Comment: Stag es of Chronic Kidney Disease (CKD)Stage Description eGFR(ml/min/1.73 sq.m.)CKD 1 Normal kidney function or >=90 normal kindney function with possible kidney damage (ex. Proteinuria)CKD 2 Kidney damage with mild loss 60-89 of kidney functionCKD 3a Mild to moderate loss of kidney 45-59 functionCKD 3b Moderate to severe loss of 30-44 of kindey function CKD 4 Severe loss of kidney function 15-29CKD 5 Kidney failure <15Note: (go live 2024) the eGFR calculation was updated to the KD-EPI creatinine equation without a race factor to calculate theeGFR results. Performed By: #### A DIFF, ANEU, CBC, GFR, BMP ####[address] [address] .NEUABSon 05-31-2024 Neutrophil, Absolute 8.3 10 3/mcL High 2.3-8.1 [facility] Comment on above: Performed By: #### A DIFF, ANEU, CBC, GFR, BMP ####[address] [address] BMPon 05-31-2024 BUN/Creatinine Ratio 35.7 ratio High 10.0-22.0 [facility] Comment on above: Performed By: #### A DIFF, ANEU, CBC, GFR, BMP ####[address] [address] Creatinine [Mass/Vol] 0.42 mg/dL Low 0.50-1.20 [facility] Comment on above: Result Comment: Test ing performed on PlaceBlogger analyzer using enzymatic creatinine methodology. Performed By: #### A DIFF, ANEU, CBC, GFR, BMP ####[address] [address] CO2 [Moles/Vol] mmol/L Critically abnormal 22-32 [facility] Comment on above: Performed By: #### A DIFF, ANEU, CBC, GFR, BMP ####[address] [address] Electrolyte Balance Unable to Calculate Normal 4.0-15. 0 [facility] Comment on above: Result Comment: Unab le to calculate this test result accurately. Results used to calculate this test are outside the reportable range. Performed By: #### A DIFF, ANEU, CBC, GFR, BMP ####[address] [address] Calcium [Mass/Vol] 8.7 mg/dL Normal 8.7-10.4 [facility] Comment on above: Performed By: #### A DIFF, ANEU, CBC, GFR, BMP ####[address] [address] Chloride [Moles/Vol] 95 mmol/L Low 98-110 [facility] Comment on above: Performed By: #### A DIFF, ANEU, CBC, GFR, BMP ####[address] [address] Glucose [Mass/Vol] 100 mg/dL Normal 70-110 [facility] Comment on above: Performed By: #### A DIFF, ANEU, CBC, GFR, BMP ####[address] [address] Potassium [Moles/Vol] 4.8 mmol/L Normal 3.5-5.0 [facility] Comment on above: Performed By: #### A DIFF, ANEU, CBC, GFR, BMP ####[address] [address] Sodium [Moles/Vol] 138 mmol/L Normal 136-145 [facility] Comment on above: Performed By: #### A DIFF, ANEU, CBC, GFR, BMP ####[place] [address] Urea nitrogen [Mass/Vol] 15.0 mg/dL Normal 8.0-22.0 [facility] Comment on above: Performed By: #### A DIFF, ANEU, CBC, GFR, BMP ####[place] [address] CBCon 05-31-2024 Erythrocyte distribution width (RBC) [Ratio] 16.3 % High 11.5-15.5 [facility] Comment on above: Performed By: #### A DIFF, ANEU, CBC, GFR, BMP ####[place] [address] Hematocrit (Bld) [Volume fraction] 33.3 % Low 34.0-46.0 [facility] Comment on above: Performed By: #### A DIFF, ANEU, CBC, GFR, BMP ####[place] [address] Hgb 10.6 G/dL Low 12.0-16.0 [facility] Comment on above: Performed By: #### A DIFF, ANEU, CBC, GFR, BMP ####[place] [address] MCH (RBC) [Entitic mass] 32.6 pg Normal 27.0-33.0 [facility] Comment on above: Performed By: #### A DIFF, ANEU, CBC, GFR, BMP ####[place] [address] MCHC 31.9 G/dL Low 32.0-36.0 [facility] Comment on above: Performed By: #### A DIFF, ANEU, CBC, GFR, BMP ####[place] [address] MCV (RBC) [Entitic vol] 102.1 fL High 80.0-99.0 [facility] Comment on above: Performed By: #### A DIFF, ANEU, CBC, GFR, BMP ####[place] [address] Platelet 177 10 3/mcL Normal 150-450 [facility] Comment on above: Performed By: #### A DIFF, ANEU, CBC, GFR, BMP ####[place] [address] Platelet mean volume (Bld) [Entitic vol] 9.0 fL Normal 6.6-10.5 [facility] Comment on above: Performed By: #### A DIFF, ANEU, CBC, GFR, BMP ####[place] [address] RBC 3.26 10 6/mcL Low 4.10-5.30 [facility] Comment on above: Performed By: #### A DIFF, ANEU, CBC, GFR, BMP ####[place] [address] WBC 11.0 10 3/mcL High 4.5-10.8 [facility] Comment on above: Performed By: #### A DIFF, ANEU, CBC, GFR, BMP ####[place] [address] .Auto Diffon 05-30-2024 Basophil, Absolute 0.1 10 3/mcL Normal 0.0-0.3 [facility] Comment on above: Performed By: #### G FR, CBC, BMP, ADIFF, ANEU, MG, VBG ####[place] [address] Basophils/100 WBC (Bld) 0.8 % Normal 0.0-2.5 [facility] Comment on above: Performed By: #### G FR, CBC, BMP, ADIFF, ANEU, MG, VBG ####[place] [address] Eosinophil, Absolute 0.5 10 3/mcL Normal 0.0-0.7 [facility] Comment on above: Performed By: #### G FR, CBC, BMP, ADIFF, ANEU, MG, VBG ####[place] [address] Eosinophils/100 WBC (Bld) 4.2 % Normal 0.0-6.0 [facility] Comment on above: Performed By: #### G FR, CBC, BMP, ADIFF, ANEU, MG, VBG ####[address] [address] Lymphocyte, Absolute 1.4 10 3/mcL Normal 0.9-4.3 [facility] Comment on above: Performed By: #### G FR, CBC, BMP, ADIFF, ANEU, MG, VBG ####[address] [address] Lymphocytes/100 WBC (Bld) 12.4 % Low 20.0-40.0 [facility] Comment on above: Performed By: #### G FR, CBC, BMP, ADIFF, ANEU, MG, VBG ####[address] [address] Monocyte, Absolute 1.1 10 3/mcL Normal 0.1-1.4 [facility] Comment on above: Performed By: #### G FR, CBC, BMP, ADIFF, ANEU, MG, VBG ####[address] [address] Monocytes/100 WBC (Bld) 9.2 % Normal 2.0-13.0 [facility] Comment on above: Performed By: #### G FR, CBC, BMP, ADIFF, ANEU, MG, VBG ####[address] [address] Neutrophils/100 WBC (Bld) 73.4 % Normal 50.0-75.0 [facility] Comment on above: Performed By: #### G FR, CBC, BMP, ADIFF, ANEU, MG, VBG ####[address] [address] .GFRon 05-30-2024 GFR/1.73 sq M.predicted among non-blacks MDRD (S/P/Bld) [Vol rate/Area] mL/min/{1.73_m2} Normal [facility] Comment on above: Result Comment: Stag es of Chronic Kidney Disease (CKD)Stage Description eGFR(ml/min/1.73 sq.m.)CKD 1 Normal kidney function or >=90 normal kindney function with possible kidney damage (ex. Proteinuria)CKD 2 Kidney damage with mild loss 60-89 of kidney functionCKD 3a Mild to moderate loss of kidney 45-59 functionCKD 3b Moderate to severe loss of 30-44 of kindey function CKD 4 Severe loss of kidney function 15-29CKD 5 Kidney failure <15Note: (go live 2024) the eGFR calculation was updated to the KD-EPI creatinine equation without a race factor to calculate theeGFR results. Performed By: #### G FR, CBC, BMP, ADIFF, ANEU, MG, VBG ####[place] [address] .NEUABSon 05-30-2024 Neutrophil, Absolute 8.4 10 3/mcL High 2.3-8.1 [facility] Comment on above: Performed By: #### G FR, CBC, BMP, ADIFF, ANEU, MG, VBG ####[place] [address] BMPon 05-30-2024 BUN/Creatinine Ratio 26.5 ratio High 10.0-22.0 [facility] Comment on above: Performed By: #### G FR, CBC, BMP, ADIFF, ANEU, MG, VBG ####[place] [address] Calcium [Mass/Vol] 9.0 mg/dL Normal 8.7-10.4 [facility] Comment on above: Performed By: #### G FR, CBC, BMP, ADIFF, ANEU, MG, VBG ####[place] [address] Chloride [Moles/Vol] 97 mmol/L Low 98-110 [facility] Comment on above: Performed By: #### G FR, CBC, BMP, ADIFF, ANEU, MG, VBG ####[place] [address] CO2 [Moles/Vol] 40 mmol/L Critically abnormal 22-32 [facility] Comment on above: Performed By: #### G FR, CBC, BMP, ADIFF, ANEU, MG, VBG ####[address] [address] Creatinine [Mass/Vol] 0.49 mg/dL Low 0.50-1.20 [facility] Comment on above: Result Comment: Test ing performed on PlaceBlogger analyzer using enzymatic creatinine methodology. Performed By: #### G FR, CBC, BMP, ADIFF, ANEU, MG, VBG ####[place] [address] Electrolyte Balance 1.0 mEq/L Low 4.0-15.0 [facility] Comment on above: Performed By: #### G FR, CBC, BMP, ADIFF, ANEU, MG, VBG ####[place] [address] Glucose [Mass/Vol] 93 mg/dL Normal 70-110 [facility] Comment on above: Performed By: #### G FR, CBC, BMP, ADIFF, ANEU, MG, VBG ####[place] [address] Potassium [Moles/Vol] 4.7 mmol/L Normal 3.5-5.0 [facility] Comment on above: Performed By: #### G FR, CBC, BMP, ADIFF, ANEU, MG, VBG ####[place] [address] Sodium [Moles/Vol] 138 mmol/L Normal 136-145 [facility] Comment on above: Performed By: #### G FR, CBC, BMP, ADIFF, ANEU, MG, VBG ####[place] [address] Urea nitrogen [Mass/Vol] 13.0 mg/dL Normal 8.0-22.0 [facility] Comment on above: Performed By: #### G FR, CBC, BMP, ADIFF, ANEU, MG, VBG ####[place] [address] CBCon 05-30-2024 Erythrocyte distribution width (RBC) [Ratio] 16.2 % High 11.5-15.5 [facility] Comment on above: Order Comment: clott ed, recollect Performed By: #### G FR, CBC, BMP, ADIFF, ANEU, MG, VBG ####[place] [address] Hematocrit (Bld) [Volume fraction] 33.4 % Low 34.0-46.0 [facility] Comment on above: Order Comment: clott ed, recollect Performed By: #### G FR, CBC, BMP, ADIFF, ANEU, MG, VBG ####[place] [address] Hgb 10.5 G/dL Low 12.0-16.0 [facility] Comment on above: Order Comment: clott ed, recollect Performed By: #### G FR, CBC, BMP, ADIFF, ANEU, MG, VBG ####[place] [address] MCH (RBC) [Entitic mass] 32.5 pg Normal 27.0-33.0 [facility] Comment on above: Order Comment: clott ed, recollect Performed By: #### G FR, CBC, BMP, ADIFF, ANEU, MG, VBG ####[place] [address] MCHC 31.4 G/dL Low 32.0-36.0 [facility] Comment on above: Order Comment: clott ed, recollect Performed By: #### G FR, CBC, BMP, ADIFF, ANEU, MG, VBG ####[place] [address] MCV (RBC) [Entitic vol] 103.5 fL High 80.0-99.0 [facility] Comment on above: Order Comment: clott ed, recollect Performed By: #### G FR, CBC, BMP, ADIFF, ANEU, MG, VBG ####[place] [address] Platelet 161 10 3/mcL Normal 150-450 [facility] Comment on above: Order Comment: clott ed, recollect Performed By: #### G FR, CBC, BMP, ADIFF, ANEU, MG, VBG ####[place] [address] Platelet mean volume (Bld) [Entitic vol] 9.4 fL Normal 6.6-10.5 [facility] Comment on above: Order Comment: clott ed, recollect Performed By: #### G FR, CBC, BMP, ADIFF, ANEU, MG, VBG ####[place] [address] [place] [address] RBC 3.23 10 6/mcL Low 4.10-5.30 [facility] Comment on above: Order Comment: clott ed, recollect Performed By: #### G FR, CBC, BMP, ADIFF, ANEU, MG, VBG ####[place] [address] WBC 11.4 10 3/mcL High 4.5-10.8 [facility] Comment on above: Order Comment: clott ed, recollect Performed By: #### G FR, CBC, BMP, ADIFF, ANEU, MG, VBG ####[place] [address] LABORATORYOrdered By: SYSTEM SYSTEM on 05-30-2024 Basophils (Bld) [#/Vol] 0.1 103/mcL Normal 0.0 - 0.3 10^3/mcL AH Workflow SS Basophils/100 WBC (Bld) 0.8 % Normal 0.0 - 2.5 % AH Workflow SS Eosinophils (Bld) [#/Vol] 0.5 103/mcL Normal 0.0 - 0.7 10^3/mcL AH Workflow SS Eosinophils/100 WBC (Bld) 4.2 % Normal 0.0 - 6.0 % AH Workflow SS Erythrocyte distribution width (RBC) [Ratio] 16.2 % High 11.5 - 15.5 % AH Workflow SS Hematocrit (Bld) [Volume fraction] 33.4 % Low 34.0 - 46.0 % AH Workflow SS Hemoglobin (Bld) [Mass/Vol] 10.5 G/dL Low 12.0 - 16.0 G/dL AH Workflow SS Lymphocytes (Bld) [#/Vol] 1.4 103/mcL Normal 0.9 - 4.3 10^3/mcL AH Workflow SS Lymphocytes/100 WBC (Bld) 12.4 % Low 20.0 - 40.0 % AH Workflow SS MCH (RBC) [Entitic mass] 32.5 pg Normal 27.0 - 33.0 pg AH Workflow SS MCHC 31.4 G/dL Low 32.0 - 36.0 G/dL AH Workflow SS MCV (RBC) [Entitic vol] 103.5 fL High 80.0 - 99.0 fL AH Workflow SS Monocytes (Bld) [#/Vol] 1.1 103/mcL Normal 0.1 - 1.4 10^3/mcL AH Workflow SS Monocytes/100 WBC (Bld) 9.2 % Normal 2.0 - 13.0 % AH Workflow SS Neutrophils (Bld) [#/Vol] 8.4 103/mcL High 2.3 - 8.1 10^3/mcL AH Workflow SS Neutrophils/100 WBC (Bld) 73.4 % Normal 50.0 - 75.0 % AH Workflow SS Platelet mean volume (Bld) [Entitic vol] 9.4 fL Normal 6.6 - 10.5 fL Workflow SS Platelets (Bld) [#/Vol] 161 103/mcL Normal 150 - 450 10^3/mcL AH Workflow SS RBC (Bld) [#/Vol] 3.23 106/mcL Low 4.10 - 5.3 0 10^6/mcL AH Workflow SS WBC (Bld) [#/Vol] 11.4 103/mcL High 4.5 - 10.8 10^3/mcL AH Workflow SS Calcium [Mass/Vol] 9.0 mg/dL Normal 8.7 - 10. 4 mg/dL ADM SS Chloride [Moles/Vol] 97 mmol/L Low 98 - 11 0 mEq/L ADM SS CO2 [Moles/Vol] 40 mmol/L Invalid Interpretation Code 22 - 32 mEq/L ADM SS Creatinine [Mass/Vol] 0.49 mg/dL Low 0.50 - 1.20 mg/dL ADM SS Comment on above: Interpretive Data: T esting performed on Place[employer] analyzer using enzymatic creatinine methodology. Electrolyte Balance 1.0 mEq/L Low 4.0 - 15 .0 mEq/L ADM SS Estimated Glomerular Filtration Rate ml/min/1.73sqm Invalid Interpretation Code Chemistry S Comment on above: Interpretive Data: Stages of Chronic Kidney Disease (CKD) Stage Description eGFR(ml/min/1.73 sq.m.) CKD 1 Normal kidney function or >=90 normal kindney function with possible kidney damage (ex. Proteinuria) CKD 2 Kidney damage with mild loss 60-89 of kidney function CKD 3a Mild to moderate loss of kidney 45-59 function CKD 3b Moderate to severe loss of 30-44 of kindey function CKD 4 Severe loss of kidney function 15-29 CKD 5 Kidney failure <15 Note: (go live 2024) the eGFR calculation was updated to the 2020 CKD-EPI creatinine equation without a race factor to calculate the eGFR results. Glucose [Mass/Vol] 93 mg/dL Normal 70 - 110 mg/dL AH ADM SS Magnesium [Mass/Vol] 1.9 mg/dL Normal 1.6 - 2 .4 mg/dL AH ADM SS Potassium [Moles/Vol] 4.7 mmol/L Normal 3.5 - 5.0 mEq/L AH ADM SS Sodium [Moles/Vol] 138 mmol/L Normal 136 - 145 mEq/L AH ADM SS Urea nitrogen [Mass/Vol] 13.0 mg/dL Normal 8.0 - 22.0 mg/dL AH ADM SS Urea nitrogen/Creatinine [Mass ratio] 26.5 ratio High 10.0 - 22.0 ratio AH ADM SS LABORATORYOrdered By: Shaunna Culp on 05-30-2024 BE Venous 14.4 mmol/L High -3.0 - 3.0 mmol/L AH Main Rapid Comm SS CO2 [Moles/Vol] 47.4 mmol/L Invalid Interpretation Code 22.0 - 32.0 mmol/L AH Main Rapid Comm SS HCO3 (Bld) [Moles/Vol] 44.5 mmol/L High 21.0 - 30.0 mmol/L AH Main Rapid Comm SS pCO2 Satish 94.5 mm[Hg] High 41.0 - 51.0 mm Hg AH Main Rapid Comm SS pH (Bld) 7.291 [pH] Low 7.380 - 7.460 AH Main Rapid Comm SS pO2 Satish 69.4 mm[Hg] High 35.0 - 40.0 mm Hg Main Rapid Comm SS MGon 05-30-2024 Magnesium [Mass/Vol] 1.9 mg/dL Normal 1.6-2.4 [facility] Comment on above: Performed By: #### G FR, CBC, BMP, ADIFF, ANEU, MG, VBG ####[facility] [place] [address] VBGon 05-30-2024 BE Venous 14.4 mmol/L High -3.0-3.0 [facility] Comment on above: Order Comment: vrb- called critical TCO2 to RN Kody Desai 05/30/2024 04:02:46 EDT SAS Performed By: #### G FR, CBC, BMP, ADIFF, ANEU, MG, VBG ####[place] [address] [place] [address] CO2 [Moles/Vol] 47.4 mmol/L Critically abnormal 22.0-32.0 [facility] Comment on above: Order Comment: vrb- called critical TCO2 to RN Kody Desai 05/30/2024 04:02:46 EDT SAS Performed By: #### G FR, CBC, BMP, ADIFF, ANEU, MG, VBG ####[address] [address] HCO3 (Bld) [Moles/Vol] 44.5 mmol/L High 21.0-30.0 [facility] Comment on above: Order Comment: vrb- called critical TCO2 to RN Kody Desai 05/30/2024 04:02:46 EDT SAS Performed By: #### G FR, CBC, BMP, ADIFF, ANEU, MG, VBG ####[address] [address] Oxygen saturation in Blood 92.0 % High 70.0-75.0 [facility] Comment on above: Order Comment: vrb- called critical TCO2 to RN Kody Desai 05/30/2024 04:02:46 EDT SAS Performed By: #### G FR, CBC, BMP, ADIFF, ANEU, MG, VBG ####[place] [address] [place] [address] pCO2 Satish 94.5 mmHg High 41.0-51.0 [facility] Comment on above: Order Comment: vrb- called critical TCO2 to RN Kody Desai 05/30/2024 04:02:46 EDT SAS Performed By: #### G FR, CBC, BMP, ADIFF, ANEU, MG, VBG ####[place] [address] [place] [address] pH Venous 7.291 Low 7.380-7.460 [facility] Comment on above: Order Comment: vrb- called critical TCO2 to RN Kody Desai 05/30/2024 04:02:46 EDT SAS Performed By: #### G FR, CBC, BMP, ADIFF, ANEU, MG, VBG ####[address] [address] pO2 Satish 69.4 mmHg High 35.0-40.0 [facility] Comment on above: Order Comment: vrb- called critical TCO2 to RN Kody Desai 05/30/2024 04:02:46 EDT SAS Performed By: #### G FR, CBC, BMP, ADIFF, ANEU, MG, VBG ####[address] [address] XR CHEST 1 VIEWon 05-30-2024 XR CHEST [address] [facility] .Auto Diffon 05-29-2024 Basophil, Absolute 0.1 10 3/mcL Normal 0.0-0.3 [facility] Comment on above: Performed By: #### A DAISY, GFR, MG, CBC, ADIFF, BMP ####[address] [address] Basophils/100 WBC (Bld) 0.9 % Normal 0.0-2.5 [facility] Comment on above: Performed By: #### A DAISY, GFR, MG, CBC, ADIFF, BMP ####[address] [address] Eosinophil, Absolute 0.7 10 3/mcL Normal 0.0-0.7 [facility] Comment on above: Performed By: #### A DAISY, GFR, MG, CBC, ADIFF, BMP ####[address] [address] Eosinophils/100 WBC (Bld) 5.3 % Normal 0.0-6.0 [facility] Comment on above: Performed By: #### A DAISY, GFR, MG, CBC, ADIFF, BMP ####[address] [address] Lymphocyte, Absolute 2.0 10 3/mcL Normal 0.9-4.3 [facility] Comment on above: Performed By: #### A DAISY, GFR, MG, CBC, ADIFF, BMP ####[address] [address] Lymphocytes/100 WBC (Bld) 16.0 % Low 20.0-40.0 [facility] Comment on above: Performed By: #### A DAISY, GFR, MG, CBC, ADIFF, BMP ####[address] [address] Monocyte, Absolute 1.2 10 3/mcL Normal 0.1-1.4 [facility] Comment on above: Performed By: #### A DAISY, GFR, MG, CBC, ADIFF, BMP ####[address] [address] Monocytes/100 WBC (Bld) 9.8 % Normal 2.0-13.0 [facility] Comment on above: Performed By: #### A DAISY, GFR, MG, CBC, ADIFF, BMP ####[address] [address] Neutrophils/100 WBC (Bld) 68.0 % Normal 50.0-75.0 [facility] Comment on above: Performed By: #### A DAISY, GFR, MG, CBC, ADIFF, BMP ####[address] [address] .GFRon 05-29-2024 GFR/1.73 sq M.predicted among non-blacks MDRD (S/P/Bld) [Vol rate/Area] mL/min/{1.73_m2} Normal [facility] Comment on above: Result Comment: Stag es of Chronic Kidney Disease (CKD)Stage Description eGFR(ml/min/1.73 sq.m.)CKD 1 Normal kidney function or >=90 normal kindney function with possible kidney damage (ex. Proteinuria)CKD 2 Kidney damage with mild loss 60-89 of kidney functionCKD 3a Mild to moderate loss of kidney 45-59 functionCKD 3b Moderate to severe loss of 30-44 of kindey function CKD 4 Severe loss of kidney function 15-29CKD 5 Kidney failure <15Note: (go live 2024) the eGFR calculation was updated to the KD-EPI creatinine equation without a race factor to calculate theeGFR results. Performed By: #### A DAISY, GFR, MG, CBC, ADIFF, BMP ####[address] [address] .NEUABSon 05-29-2024 Neutrophil, Absolute 8.4 10 3/mcL High 2.3-8.1 [facility] Comment on above: Performed By: #### A DAISY, GFR, MG, CBC, ADIFF, BMP ####[place] [address] BMPon 05-29-2024 BUN/Creatinine Ratio 29.8 ratio High 10.0-22.0 [facility] Comment on above: Performed By: #### A DAISY, GFR, MG, CBC, ADIFF, BMP ####[place] [address] Calcium [Mass/Vol] 9.2 mg/dL Normal 8.7-10.4 [facility] Comment on above: Performed By: #### A DAISY, GFR, MG, CBC, ADIFF, BMP ####[place] [address] Chloride [Moles/Vol] 97 mmol/L Low 98-110 [facility] Comment on above: Performed By: #### A DAISY, GFR, MG, CBC, ADIFF, BMP ####[place] [address] CO2 [Moles/Vol] 37 mmol/L High 22-32 [facility] Comment on above: Performed By: #### A DAISY, GFR, MG, CBC, ADIFF, BMP ####[place] [address] Creatinine [Mass/Vol] 0.47 mg/dL Low 0.50-1.20 [facility] Comment on above: Result Comment: Test ing performed on Place[employer]logger analyzer using enzymatic creatinine methodology. Performed By: #### A DAISY, GFR, MG, CBC, ADIFF, BMP ####[place] [address] Electrolyte Balance 5.0 mEq/L Normal 4.0-15.0 [facility] Comment on above: Performed By: #### A DAISY, GFR, MG, CBC, ADIFF, BMP ####[place] [address] Glucose [Mass/Vol] 88 mg/dL Normal 70-110 [facility] Comment on above: Performed By: #### A DAISY, GFR, MG, CBC, ADIFF, BMP ####[place] [address] Potassium [Moles/Vol] 5.3 mmol/L High 3.5-5.0 [facility] Comment on above: Result Comment: Spec imen slightly hemolyzed. Performed By: #### A DAISY, GFR, MG, CBC, ADIFF, BMP ####[place] [address] Sodium [Moles/Vol] 139 mmol/L Normal 136-145 [facility] Comment on above: Performed By: #### A DAISY, GFR, MG, CBC, ADIFF, BMP ####[place] [address] Urea nitrogen [Mass/Vol] 14.0 mg/dL Normal 8.0-22.0 [facility] Comment on above: Performed By: #### A DAISY, GFR, MG, CBC, ADIFF, BMP ####[place] [address] CBCon 05-29-2024 Erythrocyte distribution width (RBC) [Ratio] 16.9 % High 11.5-15.5 [facility] Comment on above: Performed By: #### A DAISY, GFR, MG, CBC, ADIFF, BMP ####[place] [address] Hematocrit (Bld) [Volume fraction] 31.9 % Low 34.0-46.0 [facility] Comment on above: Performed By: #### A DAISY, GFR, MG, CBC, ADIFF, BMP ####[place] [address] Hgb 10.1 G/dL Low 12.0-16.0 [facility] Comment on above: Performed By: #### A DAISY, GFR, MG, CBC, ADIFF, BMP ####[place] [address] MCH (RBC) [Entitic mass] 32.9 pg Normal 27.0-33.0 [facility] Comment on above: Performed By: #### A DAISY, GFR, MG, CBC, ADIFF, BMP ####[place] [address] MCHC 31.7 G/dL Low 32.0-36.0 [facility] Comment on above: Performed By: #### A DAISY, GFR, MG, CBC, ADIFF, BMP ####[place] [address] MCV (RBC) [Entitic vol] 103.8 fL High 80.0-99.0 [facility] Comment on above: Performed By: #### A DAISY, GFR, MG, CBC, ADIFF, BMP ####[place] [address] Platelet 173 10 3/mcL Normal 150-450 [facility] Comment on above: Performed By: #### A DAISY, GFR, MG, CBC, ADIFF, BMP ####[place] [address] Platelet mean volume (Bld) [Entitic vol] 10.1 fL Normal 6.6-10.5 [facility] Comment on above: Performed By: #### A DAISY, GFR, MG, CBC, ADIFF, BMP ####[place] [address] RBC 3.07 10 6/mcL Low 4.10-5.30 [facility] Comment on above: Performed By: #### A DAISY, GFR, MG, CBC, ADIFF, BMP ####[place] [address] WBC 12.4 10 3/mcL High 4.5-10.8 [facility] Comment on above: Performed By: #### A DAISY, GFR, MG, CBC, ADIFF, BMP ####[place] [address] LABORATORYOrdered By: SYSTEM SYSTEM on 05-29-2024 Basophils (Bld) [#/Vol] 0.1 103/mcL Normal 0.0 - 0.3 10^3/mcL Workflow SS Basophils/100 WBC (Bld) 0.9 % Normal 0.0 - 2.5 % AH Workflow SS Calcium [Mass/Vol] 9.2 mg/dL Normal 8.7 - 10. 4 mg/dL ADM SS Chloride [Moles/Vol] 97 mmol/L Low 98 - 11 0 mEq/L ADM SS CO2 [Moles/Vol] 37 mmol/L High 22 - 32 mEq/L ADM SS Creatinine [Mass/Vol] 0.47 mg/dL Low 0.50 - 1.20 mg/dL AH ADM SS Comment on above: Interpretive Data: T esting performed on [employer] analyzer using enzymatic creatinine methodology. Electrolyte Balance 5.0 mEq/L Normal 4.0 - 15 .0 mEq/L ADM SS Eosinophils (Bld) [#/Vol] 0.7 103/mcL Normal 0.0 - 0.7 10^3/mcL Workflow SS Eosinophils/100 WBC (Bld) 5.3 % Normal 0.0 - 6.0 % Workflow SS Erythrocyte distribution width (RBC) [Ratio] 16.9 % High 11.5 - 15.5 % Workflow SS Estimated Glomerular Filtration Rate ml/min/1.73sqm Invalid Interpretation Code Chemistry S Comment on above: Interpretive Data: Stages of Chronic Kidney Disease (CKD) Stage Description eGFR(ml/min/1.73 sq.m.) CKD 1 Normal kidney function or >=90 normal kindney function with possible kidney damage (ex. Proteinuria) CKD 2 Kidney damage with mild loss 60-89 of kidney function CKD 3a Mild to moderate loss of kidney 45-59 function CKD 3b Moderate to severe loss of 30-44 of kindey function CKD 4 Severe loss of kidney function 15-29 CKD 5 Kidney failure <15 Note: (go live 2024) the eGFR calculation was updated to the 2020 CKD-EPI creatinine equation without a race factor to calculate the eGFR results. Glucose [Mass/Vol] 88 mg/dL Normal 70 - 110 mg/dL ADM SS Hematocrit (Bld) [Volume fraction] 31.9 % Low 34.0 - 46.0 % Workflow SS Hemoglobin (Bld) [Mass/Vol] 10.1 G/dL Low 12.0 - 16.0 G/dL AH Workflow SS Lymphocytes (Bld) [#/Vol] 2.0 103/mcL Normal 0.9 - 4.3 10^3/mcL AH Workflow SS Lymphocytes/100 WBC (Bld) 16.0 % Low 20.0 - 40.0 % AH Workflow SS Magnesium [Mass/Vol] 2.0 mg/dL Normal 1.6 - 2 .4 mg/dL AH ADM SS MCH (RBC) [Entitic mass] 32.9 pg Normal 27.0 - 33.0 pg AH Workflow SS MCHC 31.7 G/dL Low 32.0 - 36.0 G/dL AH Workflow SS MCV (RBC) [Entitic vol] 103.8 fL High 80.0 - 99.0 fL AH Workflow SS Monocytes (Bld) [#/Vol] 1.2 103/mcL Normal 0.1 - 1.4 10^3/mcL AH Workflow SS Monocytes/100 WBC (Bld) 9.8 % Normal 2.0 - 13.0 % AH Workflow SS Neutrophils (Bld) [#/Vol] 8.4 103/mcL High 2.3 - 8.1 10^3/mcL AH Workflow SS Neutrophils/100 WBC (Bld) 68.0 % Normal 50.0 - 75.0 % AH Workflow SS Platelet mean volume (Bld) [Entitic vol] 10.1 fL Normal 6.6 - 10.5 fL AH Workflow SS Platelets (Bld) [#/Vol] 173 103/mcL Normal 150 - 450 10^3/mcL AH Workflow SS Potassium [Moles/Vol] 5.3 mmol/L High 3.5 - 5.0 mEq/L AH ADM SS Comment on above: Result Comment: Spec imen slightly hemolyzed. RBC (Bld) [#/Vol] 3.07 106/mcL Low 4.10 - 5.3 0 10^6/mcL AH Workflow SS Sodium [Moles/Vol] 139 mmol/L Normal 136 - 145 mEq/L AH ADM SS Urea nitrogen [Mass/Vol] 14.0 mg/dL Normal 8.0 - 22.0 mg/dL AH ADM SS Urea nitrogen/Creatinine [Mass ratio] 29.8 ratio High 10.0 - 22.0 ratio AH ADM SS WBC (Bld) [#/Vol] 12.4 103/mcL High 4.5 - 10.8 10^3/mcL AH Workflow SS MGon 05-29-2024 Magnesium [Mass/Vol] 2.0 mg/dL Normal 1.6-2.4 [facility] Comment on above: Performed By: #### A DAISY, GFR, MG, CBC, ADIFF, BMP ####[address] [address] .Auto Diffon 05-28-2024 Basophil, Absolute 0.0 10 3/mcL Normal 0.0-0.3 [facility] Comment on above: Performed By: #### V BG, GFR, ADIFF, MG, CBC, BMP, ANEU ####[place] [address] Basophils/100 WBC (Bld) 0.4 % Normal 0.0-2.5 [facility] Comment on above: Performed By: #### V BG, GFR, ADIFF, MG, CBC, BMP, ANEU ####[place] [address] Eosinophil, Absolute 0.6 10 3/mcL Normal 0.0-0.7 [facility] Comment on above: Performed By: #### V BG, GFR, ADIFF, MG, CBC, BMP, ANEU ####[place] [address] Eosinophils/100 WBC (Bld) 5.6 % Normal 0.0-6.0 [facility] Comment on above: Performed By: #### V BG, GFR, ADIFF, MG, CBC, BMP, ANEU ####[place] [address] Lymphocyte, Absolute 1.2 10 3/mcL Normal 0.9-4.3 [facility] Comment on above: Performed By: #### V BG, GFR, ADIFF, MG, CBC, BMP, ANEU ####[place] [address] Lymphocytes/100 WBC (Bld) 11.7 % Low 20.0-40.0 [facility] Comment on above: Performed By: #### V BG, GFR, ADIFF, MG, CBC, BMP, ANEU ####[address] [address] Monocyte, Absolute 0.9 10 3/mcL Normal 0.1-1.4 [facility] Comment on above: Performed By: #### V BG, GFR, ADIFF, MG, CBC, BMP, ANEU ####[address] [address] Monocytes/100 WBC (Bld) 8.2 % Normal 2.0-13.0 [facility] Comment on above: Performed By: #### V BG, GFR, ADIFF, MG, CBC, BMP, ANEU ####[address] [address] Neutrophils/100 WBC (Bld) 74.1 % Normal 50.0-75.0 [facility] Comment on above: Performed By: #### V BG, GFR, ADIFF, MG, CBC, BMP, ANEU ####[place] [address] .GFRon 05-28-2024 Estimated Glomerular Filtration Rate 115 ml/min/1.73sqm Normal [facility] Comment on above: Result Comment: Stag es of Chronic Kidney Disease (CKD)Stage Description eGFR(ml/min/1.73 sq.m.)CKD 1 Normal kidney function or >=90 normal kindney function with possible kidney damage (ex. Proteinuria)CKD 2 Kidney damage with mild loss 60-89 of kidney functionCKD 3a Mild to moderate loss of kidney 45-59 functionCKD 3b Moderate to severe loss of 30-44 of kindey function CKD 4 Severe loss of kidney function 15-29CKD 5 Kidney failure <15Note: (go live 2024) the eGFR calculation was updated to the KD-EPI creatinine equation without a race factor to calculate theeGFR results. Performed By: #### V BG, GFR, ADIFF, MG, CBC, BMP, ANEU ####[place] [address] .NEUABSon 05-28-2024 Neutrophil, Absolute 7.7 10 3/mcL Normal 2.3-8.1 [facility] Comment on above: Performed By: #### V BG, GFR, ADIFF, MG, CBC, BMP, ANEU ####[address] [address] BMPon 05-28-2024 CO2 [Moles/Vol] mmol/L Critically abnormal 22-32 [facility] Comment on above: Performed By: #### V BG, GFR, ADIFF, MG, CBC, BMP, ANEU ####[place] [address] Electrolyte Balance Unable to Calculate Normal 4.0-15. 0 [facility] Comment on above: Result Comment: Unab le to calculate this test result accurately. Results used to calculate this test are outside the reportable range. Performed By: #### V BG, GFR, ADIFF, MG, CBC, BMP, ANEU ####[place] [address] BUN/Creatinine Ratio 36.1 ratio High 10.0-22.0 [facility] Comment on above: Performed By: #### V BG, GFR, ADIFF, MG, CBC, BMP, ANEU ####[place] [address] Calcium [Mass/Vol] 9.1 mg/dL Normal 8.7-10.4 [facility] Comment on above: Performed By: #### V BG, GFR, ADIFF, MG, CBC, BMP, ANEU ####[place] [address] Chloride [Moles/Vol] 98 mmol/L Normal 98-110 [facility] Comment on above: Performed By: #### V BG, GFR, ADIFF, MG, CBC, BMP, ANEU ####[place] [address] Creatinine [Mass/Vol] 0.61 mg/dL Normal 0.50-1.20 [facility] Comment on above: Result Comment: Test ing performed on Place[employer]logger analyzer using enzymatic creatinine methodology. Performed By: #### V BG, GFR, ADIFF, MG, CBC, BMP, ANEU ####[place] [address] Glucose [Mass/Vol] 112 mg/dL High 70-110 [facility] Comment on above: Performed By: #### V BG, GFR, ADIFF, MG, CBC, BMP, ANEU ####[place] [address] Potassium [Moles/Vol] 4.6 mmol/L Normal 3.5-5.0 [facility] Comment on above: Result Comment: Spec imen slightly hemolyzed. Performed By: #### V BG, GFR, ADIFF, MG, CBC, BMP, ANEU ####[place] [address] Sodium [Moles/Vol] 144 mmol/L Normal 136-145 [facility] Comment on above: Performed By: #### V BG, GFR, ADIFF, MG, CBC, BMP, ANEU ####[place] [address] Urea nitrogen [Mass/Vol] 22.0 mg/dL Normal 8.0-22.0 [facility] Comment on above: Performed By: #### V BG, GFR, ADIFF, MG, CBC, BMP, ANEU ####[place] [address] CBCon 05-28-2024 Erythrocyte distribution width (RBC) [Ratio] 16.0 % High 11.5-15.5 [facility] Comment on above: Performed By: #### V BG, GFR, ADIFF, MG, CBC, BMP, ANEU ####[place] [address] Hematocrit (Bld) [Volume fraction] 31.4 % Low 34.0-46.0 [facility] Comment on above: Performed By: #### V BG, GFR, ADIFF, MG, CBC, BMP, ANEU ####[place] [address] Hgb 10.1 G/dL Low 12.0-16.0 [facility] Comment on above: Performed By: #### V BG, GFR, ADIFF, MG, CBC, BMP, ANEU ####[place] [address] MCH (RBC) [Entitic mass] 32.6 pg Normal 27.0-33.0 [facility] Comment on above: Performed By: #### V BG, GFR, ADIFF, MG, CBC, BMP, ANEU ####[place] [address] MCHC 32.1 G/dL Normal 32.0-36.0 [facility] Comment on above: Performed By: #### V BG, GFR, ADIFF, MG, CBC, BMP, ANEU ####[place] [address] MCV (RBC) [Entitic vol] 101.4 fL High 80.0-99.0 [facility] Comment on above: Performed By: #### V BG, GFR, ADIFF, MG, CBC, BMP, ANEU ####[place] [address] Platelet 171 10 3/mcL Normal 150-450 [facility] Comment on above: Performed By: #### V BG, GFR, ADIFF, MG, CBC, BMP, ANEU ####[place] [address] Platelet mean volume (Bld) [Entitic vol] 9.3 fL Normal 6.6-10.5 [facility] Comment on above: Performed By: #### V BG, GFR, ADIFF, MG, CBC, BMP, ANEU ####[place] [address] RBC 3.10 10 6/mcL Low 4.10-5.30 [facility] Comment on above: Performed By: #### V BG, GFR, ADIFF, MG, CBC, BMP, ANEU ####[place] [address] WBC 10.4 10 3/mcL Normal 4.5-10.8 [facility] Comment on above: Performed By: #### V BG, GFR, ADIFF, MG, CBC, BMP, ANEU ####[place] [address] LABORATORYOrdered By: SYSTEM SYSTEM on 05-28-2024 Basophils (Bld) [#/Vol] 0.0 103/mcL Normal 0.0 - 0.3 10^3/mcL AH Workflow SS Basophils/100 WBC (Bld) 0.4 % Normal 0.0 - 2.5 % AH Workflow SS Calcium [Mass/Vol] 9.1 mg/dL Normal 8.7 - 10. 4 mg/dL ADM SS Chloride [Moles/Vol] 98 mmol/L Normal 98 - 11 0 mEq/L ADM SS Creatinine [Mass/Vol] 0.61 mg/dL Normal 0.50 - 1.20 mg/dL ADM SS Comment on above: Interpretive Data: T esting performed on [employer] analyzer using enzymatic creatinine methodology. Eosinophils (Bld) [#/Vol] 0.6 103/mcL Normal 0.0 - 0.7 10^3/mcL Workflow SS Eosinophils/100 WBC (Bld) 5.6 % Normal 0.0 - 6.0 % Workflow SS Erythrocyte distribution width (RBC) [Ratio] 16.0 % High 11.5 - 15.5 % Workflow SS Estimated Glomerular Filtration Rate 115 ml/min/1.73sqm Invalid Interpretation Code Chemistry S Comment on above: Interpretive Data: Stages of Chronic Kidney Disease (CKD) Stage Description eGFR(ml/min/1.73 sq.m.) CKD 1 Normal kidney function or >=90 normal kindney function with possible kidney damage (ex. Proteinuria) CKD 2 Kidney damage with mild loss 60-89 of kidney function CKD 3a Mild to moderate loss of kidney 45-59 function CKD 3b Moderate to severe loss of 30-44 of kindey function CKD 4 Severe loss of kidney function 15-29 CKD 5 Kidney failure <15 Note: (go live 2024) the eGFR calculation was updated to the 2020 CKD-EPI creatinine equation without a race factor to calculate the eGFR results. Glucose [Mass/Vol] 112 mg/dL High 70 - 110 mg/dL ADM SS Hematocrit (Bld) [Volume fraction] 31.4 % Low 34.0 - 46.0 % Workflow SS Hemoglobin (Bld) [Mass/Vol] 10.1 G/dL Low 12.0 - 16.0 G/dL Workflow SS Lymphocytes (Bld) [#/Vol] 1.2 103/mcL Normal 0.9 - 4.3 10^3/mcL Workflow SS Lymphocytes/100 WBC (Bld) 11.7 % Low 20.0 - 40.0 % Workflow SS Magnesium [Mass/Vol] 1.9 mg/dL Normal 1.6 - 2 .4 mg/dL AH ADM SS MCH (RBC) [Entitic mass] 32.6 pg Normal 27.0 - 33.0 pg AH Workflow SS MCHC 32.1 G/dL Normal 32.0 - 36.0 G/dL AH Workflow SS MCV (RBC) [Entitic vol] 101.4 fL High 80.0 - 99.0 fL AH Workflow SS Monocytes (Bld) [#/Vol] 0.9 103/mcL Normal 0.1 - 1.4 10^3/mcL AH Workflow SS Monocytes/100 WBC (Bld) 8.2 % Normal 2.0 - 13.0 % AH Workflow SS Neutrophils (Bld) [#/Vol] 7.7 103/mcL Normal 2.3 - 8.1 10^3/mcL AH Workflow SS Neutrophils/100 WBC (Bld) 74.1 % Normal 50.0 - 75.0 % AH Workflow SS Platelet mean volume (Bld) [Entitic vol] 9.3 fL Normal 6.6 - 10.5 fL AH Workflow SS Platelets (Bld) [#/Vol] 171 103/mcL Normal 150 - 450 10^3/mcL AH Workflow SS Potassium [Moles/Vol] 4.6 mmol/L Normal 3.5 - 5.0 mEq/L AH ADM SS Comment on above: Result Comment: Spec imen slightly hemolyzed. RBC (Bld) [#/Vol] 3.10 106/mcL Low 4.10 - 5.3 0 10^6/mcL AH Workflow SS Sodium [Moles/Vol] 144 mmol/L Normal 136 - 145 mEq/L ADM SS Urea nitrogen [Mass/Vol] 22.0 mg/dL Normal 8.0 - 22.0 mg/dL AH ADM SS Urea nitrogen/Creatinine [Mass ratio] 36.1 ratio High 10.0 - 22.0 ratio AH ADM SS WBC (Bld) [#/Vol] 10.4 103/mcL Normal 4.5 - 10.8 10^3/mcL AH Workflow SS LABORATORYOrdered By: Mike Felipe on 05-28-2024 BE Venous 13.8 mmol/L High -3.0 - 3.0 mmol/L Main Rapid Comm SS CO2 [Moles/Vol] 46.9 mmol/L Invalid Interpretation Code 22.0 - 32.0 mmol/L Main Rapid Comm SS HCO3 (Bld) [Moles/Vol] 43.9 mmol/L High 21.0 - 30.0 mmol/L Main Rapid Comm SS pCO2 Satish 95.9 mm[Hg] High 41.0 - 51.0 mm Hg Main Rapid Comm SS pH (Bld) 7.279 [pH] Low 7.380 - 7.460 AH Main Rapid Comm SS pO2 Satish 76.3 mm[Hg] High 35.0 - 40.0 mm Hg AH Main Rapid Comm SS LABORATORYOrdered By: Nasra Manzano on 05-28-2024 CO2 [Moles/Vol] mEq/L Invalid Interpretation Code 22 - 32 mEq/L Chemistry S Comment on above: Result Comment: read back by alvina jaramillo rn Electrolyte Balance Unable to Calculate Invalid Interpretation Code 4.0 - 15.0 Chemistry S Comment on above: Result Comment: Unab le to calculate this test result accurately. Results used to calculate this test are outside the reportable range. MGon 05-28-2024 Magnesium [Mass/Vol] 1.9 mg/dL Normal 1.6-2.4 [facility] Comment on above: Performed By: #### V BG, GFR, ADIFF, MG, CBC, BMP, ANEU ####[address] [address] VBGon 05-28-2024 BE Venous 13.8 mmol/L High -3.0-3.0 [facility] Comment on above: Performed By: #### V BG, GFR, ADIFF, MG, CBC, BMP, ANEU ####[address] [address] CO2 [Moles/Vol] 46.9 mmol/L Critically abnormal 22.0-32.0 [facility] Comment on above: Performed By: #### V BG, GFR, ADIFF, MG, CBC, BMP, ANEU ####[address] [address] HCO3 (Bld) [Moles/Vol] 43.9 mmol/L High 21.0-30.0 [facility] Comment on above: Performed By: #### V BG, GFR, ADIFF, MG, CBC, BMP, ANEU ####[place] [address] Oxygen saturation in Blood 93.4 % High 70.0-75.0 [facility] Comment on above: Performed By: #### V BG, GFR, ADIFF, MG, CBC, BMP, ANEU ####[place] [address] pCO2 Satish 95.9 mmHg High 41.0-51.0 [facility] Comment on above: Performed By: #### V BG, GFR, ADIFF, MG, CBC, BMP, ANEU ####[place] [address] pH Venous 7.279 Low 7.380-7.460 [facility] Comment on above: Performed By: #### V BG, GFR, ADIFF, MG, CBC, BMP, ANEU ####[place] [address] pO2 Satish 76.3 mmHg High 35.0-40.0 [facility] Comment on above: Performed By: #### V BG, GFR, ADIFF, MG, CBC, BMP, ANEU ####[place] [address] .Auto Diffon 05-27-2024 Basophil, Absolute 0.1 10 3/mcL Normal 0.0-0.3 [facility] Comment on above: Performed By: #### M G, ANEU, ADIFF, GFR, BMP, CBC ####[place] [address] Basophils/100 WBC (Bld) 0.8 % Normal 0.0-2.5 [facility] Comment on above: Performed By: #### M G, ANEU, ADIFF, GFR, BMP, CBC ####[place] [address] Eosinophil, Absolute 0.6 10 3/mcL Normal 0.0-0.7 [facility] Comment on above: Performed By: #### M G, ANEU, ADIFF, GFR, BMP, CBC ####[place] [address] Eosinophils/100 WBC (Bld) 5.9 % Normal 0.0-6.0 [facility] Comment on above: Performed By: #### M G, ANEU, ADIFF, GFR, BMP, CBC ####[address] [address] Lymphocyte, Absolute 1.5 10 3/mcL Normal 0.9-4.3 [facility] Comment on above: Performed By: #### M G, ANEU, ADIFF, GFR, BMP, CBC ####[address] [address] Lymphocytes/100 WBC (Bld) 15.4 % Low 20.0-40.0 [facility] Comment on above: Performed By: #### M G, ANEU, ADIFF, GFR, BMP, CBC ####[address] [address] Monocyte, Absolute 0.9 10 3/mcL Normal 0.1-1.4 [facility] Comment on above: Performed By: #### M G, ANEU, ADIFF, GFR, BMP, CBC ####[address] [address] Monocytes/100 WBC (Bld) 9.5 % Normal 2.0-13.0 [facility] Comment on above: Performed By: #### M G, ANEU, ADIFF, GFR, BMP, CBC ####[address] [address] Neutrophils/100 WBC (Bld) 68.4 % Normal 50.0-75.0 [facility] Comment on above: Performed By: #### M G, ANEU, ADIFF, GFR, BMP, CBC ####[address] [address] .GFRon 05-27-2024 Estimated Glomerular Filtration Rate 119 ml/min/1.73sqm Normal [facility] Comment on above: Result Comment: Stag es of Chronic Kidney Disease (CKD)Stage Description eGFR(ml/min/1.73 sq.m.)CKD 1 Normal kidney function or >=90 normal kindney function with possible kidney damage (ex. Proteinuria)CKD 2 Kidney damage with mild loss 60-89 of kidney functionCKD 3a Mild to moderate loss of kidney 45-59 functionCKD 3b Moderate to severe loss of 30-44 of kindey function CKD 4 Severe loss of kidney function 15-29CKD 5 Kidney failure <15Note: (go live 2024) the eGFR calculation was updated to the KD-EPI creatinine equation without a race factor to calculate theeGFR results. Performed By: #### M G, ANEU, ADIFF, GFR, BMP, CBC ####[place] [id number] .NEUABSon 05-27-2024 Neutrophil, Absolute 6.7 10 3/mcL Normal 2.3-8.1 [facility] Comment on above: Performed By: #### M G, ANEU, ADIFF, GFR, BMP, CBC ####[place] [address] BMPon 05-27-2024 CO2 [Moles/Vol] mmol/L Critically abnormal 22-32 [facility] Comment on above: Performed By: #### M G, ANEU, ADIFF, GFR, BMP, CBC ####[place] [address] Electrolyte Balance Unable to Calculate Normal 4.0-15. 0 [facility] Comment on above: Result Comment: Unab le to calculate this test result accurately. Results used to calculate this test are outside the reportable range. Performed By: #### M G, ANEU, ADIFF, GFR, BMP, CBC ####[place] [address] BUN/Creatinine Ratio 37.7 ratio High 10.0-22.0 [facility] Comment on above: Performed By: #### M G, ANEU, ADIFF, GFR, BMP, CBC ####[place] [address] Calcium [Mass/Vol] 8.6 mg/dL Low 8.7-10.4 [facility] Comment on above: Performed By: #### M G, ANEU, ADIFF, GFR, BMP, CBC ####[place] [address] Chloride [Moles/Vol] 96 mmol/L Low 98-110 [facility] Comment on above: Performed By: #### M G, ANEU, ADIFF, GFR, BMP, CBC ####[place] [address] Creatinine [Mass/Vol] 0.53 mg/dL Normal 0.50-1.20 [facility] Comment on above: Result Comment: Test ing performed on Place[employer]logger analyzer using enzymatic creatinine methodology. Performed By: #### M G, ANEU, ADIFF, GFR, BMP, CBC ####[place] [address] Glucose [Mass/Vol] 82 mg/dL Normal 70-110 [facility] Comment on above: Performed By: #### M G, ANEU, ADIFF, GFR, BMP, CBC ####[place] [address] Potassium [Moles/Vol] 4.4 mmol/L Normal 3.5-5.0 [facility] Comment on above: Performed By: #### M G, ANEU, ADIFF, GFR, BMP, CBC ####[place] [address] Sodium [Moles/Vol] 141 mmol/L Normal 136-145 [facility] Comment on above: Performed By: #### M G, ANEU, ADIFF, GFR, BMP, CBC ####[place] [address] Urea nitrogen [Mass/Vol] 20.0 mg/dL Normal 8.0-22.0 [facility] Comment on above: Performed By: #### M G, ANEU, ADIFF, GFR, BMP, CBC ####[address] [address] CBCon 05-27-2024 Erythrocyte distribution width (RBC) [Ratio] 15.4 % Normal 11.5-15.5 [facility] Comment on above: Performed By: #### M G, ANEU, ADIFF, GFR, BMP, CBC ####[place] [address] Hematocrit (Bld) [Volume fraction] 28.2 % Low 34.0-46.0 [facility] Comment on above: Performed By: #### M G, ANEU, ADIFF, GFR, BMP, CBC ####[place] [address] Hgb 9.5 G/dL Low 12.0-16.0 [facility] Comment on above: Performed By: #### M G, ANEU, ADIFF, GFR, BMP, CBC ####[place] [address] MCH (RBC) [Entitic mass] 33.8 pg High 27.0-33.0 [facility] Comment on above: Performed By: #### M G, ANEU, ADIFF, GFR, BMP, CBC ####[place] [address] MCHC 33.6 G/dL Normal 32.0-36.0 [facility] Comment on above: Performed By: #### M G, ANEU, ADIFF, GFR, BMP, CBC ####[place] [address] MCV (RBC) [Entitic vol] 100.6 fL High 80.0-99.0 [facility] Comment on above: Performed By: #### M G, ANEU, ADIFF, GFR, BMP, CBC ####[place] [address] Platelet 166 10 3/mcL Normal 150-450 [facility] Comment on above: Performed By: #### M G, ANEU, ADIFF, GFR, BMP, CBC ####[place] [address] Platelet mean volume (Bld) [Entitic vol] 9.2 fL Normal 6.6-10.5 [facility] Comment on above: Performed By: #### M G, ANEU, ADIFF, GFR, BMP, CBC ####[place] [address] RBC 2.81 10 6/mcL Low 4.10-5.30 [facility] Comment on above: Performed By: #### M G, ANEU, ADIFF, GFR, BMP, CBC ####[place] [address] WBC 9.9 10 3/mcL Normal 4.5-10.8 [facility] Comment on above: Performed By: #### M G, ANEU, ADIFF, GFR, BMP, CBC ####[address] [address] MGon 05-27-2024 Magnesium [Mass/Vol] 1.8 mg/dL Normal 1.6-2.4 [facility] Comment on above: Performed By: #### M G, ANEU, ADIFF, GFR, BMP, CBC ####[place] [address] US ABDOMEN COMPLETEon 2024 US ABDOMEN COMPLETE Normal [facility] .Auto Diffon 05-26-2024 Basophil, Absolute 0.1 10 3/mcL Normal 0.0-0.3 [facility] Comment on above: Performed By: #### M G, CBC, VBG, ANEU, GFR, BMP, ADIFF ####[place] [address] Basophils/100 WBC (Bld) 0.5 % Normal 0.0-2.5 [facility] Comment on above: Performed By: #### M G, CBC, VBG, ANEU, GFR, BMP, ADIFF ####[place] [address] Eosinophil, Absolute 0.7 10 3/mcL Normal 0.0-0.7 [facility] Comment on above: Performed By: #### M G, CBC, VBG, ANEU, GFR, BMP, ADIFF ####[address] [address] Eosinophils/100 WBC (Bld) 6.2 % High 0.0-6.0 [facility] Comment on above: Performed By: #### M G, CBC, VBG, ANEU, GFR, BMP, ADIFF ####[place] [address] Lymphocyte, Absolute 1.1 10 3/mcL Normal 0.9-4.3 [facility] Comment on above: Performed By: #### M G, CBC, VBG, ANEU, GFR, BMP, ADIFF ####[address] [place] [address] Lymphocytes/100 WBC (Bld) 8.9 % Low 20.0-40.0 [facility] Comment on above: Performed By: #### M G, CBC, VBG, ANEU, GFR, BMP, ADIFF ####[place] [address] [place] [address] Monocyte, Absolute 0.9 10 3/mcL Normal 0.1-1.4 [facility] Comment on above: Performed By: #### M G, CBC, VBG, ANEU, GFR, BMP, ADIFF ####[address] [address] Monocytes/100 WBC (Bld) 7.5 % Normal 2.0-13.0 [facility] Comment on above: Performed By: #### M G, CBC, VBG, ANEU, GFR, BMP, ADIFF ####[address] [address] Neutrophils/100 WBC (Bld) 76.9 % High 50.0-75.0 [facility] Comment on above: Performed By: #### M G, CBC, VBG, ANEU, GFR, BMP, ADIFF ####[address] [address] .GFRon 05-26-2024 GFR/1.73 sq M.predicted among non-blacks MDRD (S/P/Bld) [Vol rate/Area] mL/min/{1.73_m2} Normal [facility] Comment on above: Result Comment: Stag es of Chronic Kidney Disease (CKD)Stage Description eGFR(ml/min/1.73 sq.m.)CKD 1 Normal kidney function or >=90 normal kindney function with possible kidney damage (ex. Proteinuria)CKD 2 Kidney damage with mild loss 60-89 of kidney functionCKD 3a Mild to moderate loss of kidney 45-59 functionCKD 3b Moderate to severe loss of 30-44 of kindey function CKD 4 Severe loss of kidney function 15-29CKD 5 Kidney failure <15Note: (go live 2024) the eGFR calculation was updated to the KD-EPI creatinine equation without a race factor to calculate theeGFR results. Performed By: #### M G, CBC, VBG, ANEU, GFR, BMP, ADIFF ####[address] [address] .NEUABSon 05-26-2024 Neutrophil, Absolute 9.2 10 3/mcL High 2.3-8.1 [facility] Comment on above: Performed By: #### M G, CBC, VBG, ANEU, GFR, BMP, ADIFF ####[place] [id number] BMPon 05-26-2024 CO2 [Moles/Vol] mmol/L Critically abnormal 22-32 [facility] Comment on above: Performed By: #### M G, CBC, VBG, ANEU, GFR, BMP, ADIFF ####[place] [address] Electrolyte Balance Unable to Calculate Normal 4.0-15. 0 [facility] Comment on above: Result Comment: Unab le to calculate this test result accurately. Results used to calculate this test are outside the reportable range. Performed By: #### M G, CBC, VBG, ANEU, GFR, BMP, ADIFF ####[place] [address] BUN/Creatinine Ratio 38.3 ratio High 10.0-22.0 [facility] Comment on above: Performed By: #### M G, CBC, VBG, ANEU, GFR, BMP, ADIFF ####[place] [address] Calcium [Mass/Vol] 9.1 mg/dL Normal 8.7-10.4 [facility] Comment on above: Performed By: #### M G, CBC, VBG, ANEU, GFR, BMP, ADIFF ####[place] [address] Chloride [Moles/Vol] 95 mmol/L Low 98-110 [facility] Comment on above: Performed By: #### M G, CBC, VBG, ANEU, GFR, BMP, ADIFF ####[place] [address] Creatinine [Mass/Vol] 0.47 mg/dL Low 0.50-1.20 [facility] Comment on above: Result Comment: Test ing performed on Place[employer] analyzer using enzymatic creatinine methodology. Performed By: #### M G, CBC, VBG, ANEU, GFR, BMP, ADIFF ####[place] [address] Glucose [Mass/Vol] 129 mg/dL High 70-110 [facility] Comment on above: Performed By: #### M G, CBC, VBG, ANEU, GFR, BMP, ADIFF ####[address] [address] Potassium [Moles/Vol] 4.8 mmol/L Normal 3.5-5.0 [facility] Comment on above: Performed By: #### M G, CBC, VBG, ANEU, GFR, BMP, ADIFF ####[place] [id number] Sodium [Moles/Vol] 141 mmol/L Normal 136-145 [facility] Comment on above: Performed By: #### M G, CBC, VBG, ANEU, GFR, BMP, ADIFF ####[place] [address] Urea nitrogen [Mass/Vol] 18.0 mg/dL Normal 8.0-22.0 [facility] Comment on above: Performed By: #### M G, CBC, VBG, ANEU, GFR, BMP, ADIFF ####[address] [address] CBCon 05-26-2024 Erythrocyte distribution width (RBC) [Ratio] 15.2 % Normal 11.5-15.5 [facility] Comment on above: Performed By: #### M G, CBC, VBG, ANEU, GFR, BMP, ADIFF ####[place] [address] Hematocrit (Bld) [Volume fraction] 32.0 % Low 34.0-46.0 [facility] Comment on above: Performed By: #### M G, CBC, VBG, ANEU, GFR, BMP, ADIFF ####[address] [address] Hgb 10.2 G/dL Low 12.0-16.0 [facility] Comment on above: Performed By: #### M G, CBC, VBG, ANEU, GFR, BMP, ADIFF ####[place] [address] MCH (RBC) [Entitic mass] 32.4 pg Normal 27.0-33.0 [facility] Comment on above: Performed By: #### M G, CBC, VBG, ANEU, GFR, BMP, ADIFF ####[place] [address] MCHC 32.0 G/dL Normal 32.0-36.0 [facility] Comment on above: Performed By: #### M G, CBC, VBG, ANEU, GFR, BMP, ADIFF ####[place] [address] MCV (RBC) [Entitic vol] 101.0 fL High 80.0-99.0 [facility] Comment on above: Performed By: #### M G, CBC, VBG, ANEU, GFR, BMP, ADIFF ####[place] [address] Platelet 190 10 3/mcL Normal 150-450 [facility] Comment on above: Performed By: #### M G, CBC, VBG, ANEU, GFR, BMP, ADIFF ####[place] [address] Platelet mean volume (Bld) [Entitic vol] 8.9 fL Normal 6.6-10.5 [facility] Comment on above: Performed By: #### M G, CBC, VBG, ANEU, GFR, BMP, ADIFF ####[place] [address] RBC 3.17 10 6/mcL Low 4.10-5.30 [facility] Comment on above: Performed By: #### M G, CBC, VBG, ANEU, GFR, BMP, ADIFF ####[place] [address] WBC 12.0 10 3/mcL High 4.5-10.8 [facility] Comment on above: Performed By: #### M G, CBC, VBG, ANEU, GFR, BMP, ADIFF ####[place] [address] LABORATORYOrdered By: Sim Barclay on 05-26-2024 BE Venous 13.5 mmol/L High -3.0 - 3.0 mmol/L AH Main Rapid Comm SS CO2 [Moles/Vol] 45.9 mmol/L Invalid Interpretation Code 22.0 - 32.0 mmol/L AH Main Rapid Comm SS HCO3 (Bld) [Moles/Vol] 43.2 mmol/L High 21.0 - 30.0 mmol/L AH Main Rapid Comm SS pCO2 Satish 89.3 mm[Hg] High 41.0 - 51.0 mm Hg Main Rapid Comm SS pH (Bld) 7.302 [pH] Low 7.380 - 7.460 Main Rapid Comm SS pO2 Satish 135.5 mm[Hg] High 35.0 - 40.0 mm Hg AH Main Rapid Comm SS MGon 05-26-2024 Magnesium [Mass/Vol] 1.8 mg/dL Normal 1.6-2.4 [facility] Comment on above: Performed By: #### M G, CBC, VBG, ANEU, GFR, BMP, ADIFF ####[place] [address] VBGon 05-26-2024 BE Venous 13.5 mmol/L High -3.0-3.0 [facility] Comment on above: Performed By: #### M G, CBC, VBG, ANEU, GFR, BMP, ADIFF ####[place] [address] CO2 [Moles/Vol] 45.9 mmol/L Critically abnormal 22.0-32.0 [facility] Comment on above: Performed By: #### M G, CBC, VBG, ANEU, GFR, BMP, ADIFF ####[place] [address] HCO3 (Bld) [Moles/Vol] 43.2 mmol/L High 21.0-30.0 [facility] Comment on above: Performed By: #### M G, CBC, VBG, ANEU, GFR, BMP, ADIFF ####[place] [address] Oxygen saturation in Blood 98.8 % High 70.0-75.0 [facility] Comment on above: Performed By: #### M G, CBC, VBG, ANEU, GFR, BMP, ADIFF ####[place] [address] pCO2 Satish 89.3 mmHg High 41.0-51.0 [facility] Comment on above: Performed By: #### M G, CBC, VBG, ANEU, GFR, BMP, ADIFF ####[place] [address] pH Venous 7.302 Low 7.380-7.460 [facility] Comment on above: Performed By: #### M G, CBC, VBG, ANEU, GFR, BMP, ADIFF ####[place] [address] pO2 Satish 135.5 mmHg High 35.0-40.0 [facility] Comment on above: Performed By: #### M G, CBC, VBG, ANEU, GFR, BMP, ADIFF ####[place] [address] .Auto Diffon 05-25-2024 Basophil, Absolute 0.1 10 3/mcL Normal 0.0-0.3 [facility] Comment on above: Performed By: #### C BC, GFR, MG, ADIFF, ANEU, BMP ####[place] [address] Basophils/100 WBC (Bld) 0.5 % Normal 0.0-2.5 [facility] Comment on above: Performed By: #### C BC, GFR, MG, ADIFF, ANEU, BMP ####[place] [address] Eosinophil, Absolute 0.7 10 3/mcL Normal 0.0-0.7 [facility] Comment on above: Performed By: #### C BC, GFR, MG, ADIFF, ANEU, BMP ####[id number] [place] [address] Eosinophils/100 WBC (Bld) 5.2 % Normal 0.0-6.0 [facility] Comment on above: Performed By: #### C BC, GFR, MG, ADIFF, ANEU, BMP ####[place] [address] [place] [address] Lymphocyte, Absolute 1.4 10 3/mcL Normal 0.9-4.3 [facility] Comment on above: Performed By: #### C BC, GFR, MG, ADIFF, ANEU, BMP ####[address] [address] Lymphocytes/100 WBC (Bld) 10.9 % Low 20.0-40.0 [facility] Comment on above: Performed By: #### C BC, GFR, MG, ADIFF, ANEU, BMP ####[address] [address] Monocyte, Absolute 0.9 10 3/mcL Normal 0.1-1.4 [facility] Comment on above: Performed By: #### C BC, GFR, MG, ADIFF, ANEU, BMP ####[address] [address] Monocytes/100 WBC (Bld) 7.2 % Normal 2.0-13.0 [facility] Comment on above: Performed By: #### C BC, GFR, MG, ADIFF, ANEU, BMP ####[address] [address] Neutrophils/100 WBC (Bld) 76.2 % High 50.0-75.0 [facility] Comment on above: Performed By: #### C BC, GFR, MG, ADIFF, ANEU, BMP ####[address] [address] .GFRon 05-25-2024 GFR/1.73 sq M.predicted among non-blacks MDRD (S/P/Bld) [Vol rate/Area] mL/min/{1.73_m2} Normal [facility] Comment on above: Result Comment: Stag es of Chronic Kidney Disease (CKD)Stage Description eGFR(ml/min/1.73 sq.m.)CKD 1 Normal kidney function or >=90 normal kindney function with possible kidney damage (ex. Proteinuria)CKD 2 Kidney damage with mild loss 60-89 of kidney functionCKD 3a Mild to moderate loss of kidney 45-59 functionCKD 3b Moderate to severe loss of 30-44 of kindey function CKD 4 Severe loss of kidney function 15-29CKD 5 Kidney failure <15Note: (go live 2024) the eGFR calculation was updated to the KD-EPI creatinine equation without a race factor to calculate theeGFR results. Performed By: #### C BC, GFR, MG, ADIFF, ANEU, BMP ####[place] [address] .NEUABSon 05-25-2024 Neutrophil, Absolute 10.0 10 3/mcL High 2.3-8.1 [facility] Comment on above: Performed By: #### C BC, GFR, MG, ADIFF, ANEU, BMP ####[place] [address] BMPon 05-25-2024 CO2 [Moles/Vol] mmol/L Critically abnormal 22-32 [facility] Comment on above: Performed By: #### C BC, GFR, MG, ADIFF, ANEU, BMP ####[place] [address] Electrolyte Balance Unable to Calculate Normal 4.0-15. 0 [facility] Comment on above: Result Comment: Unab le to calculate this test result accurately. Results used to calculate this test are outside the reportable range. Performed By: #### C BC, GFR, MG, ADIFF, ANEU, BMP ####[place] [address] BUN/Creatinine Ratio 45.5 ratio High 10.0-22.0 [facility] Comment on above: Performed By: #### C BC, GFR, MG, ADIFF, ANEU, BMP ####[place] [address] Calcium [Mass/Vol] 9.4 mg/dL Normal 8.7-10.4 [facility] Comment on above: Performed By: #### C BC, GFR, MG, ADIFF, ANEU, BMP ####[address] [address] Chloride [Moles/Vol] 95 mmol/L Low 98-110 [facility] Comment on above: Performed By: #### C BC, GFR, MG, ADIFF, ANEU, BMP ####[address] [address] Creatinine [Mass/Vol] 0.44 mg/dL Low 0.50-1.20 [facility] Comment on above: Result Comment: Test ing performed on [employer] analyzer using enzymatic creatinine methodology. Performed By: #### C BC, GFR, MG, ADIFF, ANEU, BMP ####[address] [address] Glucose [Mass/Vol] 83 mg/dL Normal 70-110 [facility] Comment on above: Performed By: #### C BC, GFR, MG, ADIFF, ANEU, BMP ####[place] [address] Potassium [Moles/Vol] 4.2 mmol/L Normal 3.5-5.0 [facility] Comment on above: Performed By: #### C BC, GFR, MG, ADIFF, ANEU, BMP ####[address] [address] Sodium [Moles/Vol] 141 mmol/L Normal 136-145 [facility] Comment on above: Performed By: #### C BC, GFR, MG, ADIFF, ANEU, BMP ####[place] [id number] Urea nitrogen [Mass/Vol] 20.0 mg/dL Normal 8.0-22.0 [facility] Comment on above: Performed By: #### C BC, GFR, MG, ADIFF, ANEU, BMP ####[address] [address] CBCon 05-25-2024 Erythrocyte distribution width (RBC) [Ratio] 15.6 % High 11.5-15.5 [facility] Comment on above: Performed By: #### C BC, GFR, MG, ADIFF, ANEU, BMP ####[place] [address] Hematocrit (Bld) [Volume fraction] 30.6 % Low 34.0-46.0 [facility] Comment on above: Performed By: #### C BC, GFR, MG, ADIFF, ANEU, BMP ####[place] [address] Hgb 9.7 G/dL Low 12.0-16.0 [facility] Comment on above: Performed By: #### C BC, GFR, MG, ADIFF, ANEU, BMP ####[place] [address] MCH (RBC) [Entitic mass] 32.6 pg Normal 27.0-33.0 [facility] Comment on above: Performed By: #### C BC, GFR, MG, ADIFF, ANEU, BMP ####[place] [address] MCHC 31.8 G/dL Low 32.0-36.0 [facility] Comment on above: Performed By: #### C BC, GFR, MG, ADIFF, ANEU, BMP ####[place] [address] MCV (RBC) [Entitic vol] 102.7 fL High 80.0-99.0 [facility] Comment on above: Performed By: #### C BC, GFR, MG, ADIFF, ANEU, BMP ####[place] [address] Platelet 183 10 3/mcL Normal 150-450 [facility] Comment on above: Performed By: #### C BC, GFR, MG, ADIFF, ANEU, BMP ####[place] [address] Platelet mean volume (Bld) [Entitic vol] 9.1 fL Normal 6.6-10.5 [facility] Comment on above: Performed By: #### C BC, GFR, MG, ADIFF, ANEU, BMP ####[place] [address] RBC 2.98 10 6/mcL Low 4.10-5.30 [facility] Comment on above: Performed By: #### C BC, GFR, MG, ADIFF, ANEU, BMP ####[address] [address] WBC 13.1 10 3/mcL High 4.5-10.8 [facility] Comment on above: Performed By: #### C BC, GFR, MG, ADIFF, ANEU, BMP ####[place] [address] MGon 05-25-2024 Magnesium [Mass/Vol] 2.0 mg/dL Normal 1.6-2.4 [facility] Comment on above: Performed By: #### C BC, GFR, MG, ADIFF, ANEU, BMP ####[place] [address] XR CHEST 1 VIEWon 05-25-2024 XR CHEST [address] [facility] .Auto Diffon 05-24-2024 Basophil, Absolute 0.1 10 3/mcL Normal 0.0-0.3 [facility] Comment on above: Performed By: #### F ES, FOL, GFR, PHOS, FERR, B12, MG, BMP, ADIFF, VBG, CBC, ANEU ####[address] [address] Basophils/100 WBC (Bld) 0.6 % Normal 0.0-2.5 [facility] Comment on above: Performed By: #### F ES, FOL, GFR, PHOS, FERR, B12, MG, BMP, ADIFF, VBG, CBC, ANEU ####[address] [address] Eosinophil, Absolute 0.8 10 3/mcL High 0.0-0.7 [facility] Comment on above: Performed By: #### F ES, FOL, GFR, PHOS, FERR, B12, MG, BMP, ADIFF, VBG, CBC, ANEU ####[address] [address] Eosinophils/100 WBC (Bld) 6.2 % High 0.0-6.0 [facility] Comment on above: Performed By: #### F ES, FOL, GFR, PHOS, FERR, B12, MG, BMP, ADIFF, VBG, CBC, ANEU ####[address] [address] Lymphocyte, Absolute 1.3 10 3/mcL Normal 0.9-4.3 [facility] Comment on above: Performed By: #### F ES, FOL, GFR, PHOS, FERR, B12, MG, BMP, ADIFF, VBG, CBC, ANEU ####[address] [address] Lymphocytes/100 WBC (Bld) 10.9 % Low 20.0-40.0 [facility] Comment on above: Performed By: #### F ES, FOL, GFR, PHOS, FERR, B12, MG, BMP, ADIFF, VBG, CBC, ANEU ####[address] [address] Monocyte, Absolute 1.1 10 3/mcL Normal 0.1-1.4 [facility] Comment on above: Performed By: #### F ES, FOL, GFR, PHOS, FERR, B12, MG, BMP, ADIFF, VBG, CBC, ANEU ####[address] [address] Monocytes/100 WBC (Bld) 9.2 % Normal 2.0-13.0 [facility] Comment on above: Performed By: #### F ES, FOL, GFR, PHOS, FERR, B12, MG, BMP, ADIFF, VBG, CBC, ANEU ####[address] [address] Neutrophils/100 WBC (Bld) 73.1 % Normal 50.0-75.0 [facility] Comment on above: Performed By: #### F ES, FOL, GFR, PHOS, FERR, B12, MG, BMP, ADIFF, VBG, CBC, ANEU ####[address] [address] .GFRon 05-24-2024 GFR/1.73 sq M.predicted among non-blacks MDRD (S/P/Bld) [Vol rate/Area] mL/min/{1.73_m2} Normal [facility] Comment on above: Result Comment: Stag es of Chronic Kidney Disease (CKD)Stage Description eGFR(ml/min/1.73 sq.m.)CKD 1 Normal kidney function or >=90 normal kindney function with possible kidney damage (ex. Proteinuria)CKD 2 Kidney damage with mild loss 60-89 of kidney functionCKD 3a Mild to moderate loss of kidney 45-59 functionCKD 3b Moderate to severe loss of 30-44 of kindey function CKD 4 Severe loss of kidney function 15-29CKD 5 Kidney failure <15Note: (go live 2024) the eGFR calculation was updated to the KD-EPI creatinine equation without a race factor to calculate theeGFR results. Performed By: #### F ES, FOL, GFR, PHOS, FERR, B12, MG, BMP, ADIFF, VBG, CBC, ANEU ####[address] [address] .NEUABSon 05-24-2024 Neutrophil, Absolute 9.0 10 3/mcL High 2.3-8.1 [facility] Comment on above: Performed By: #### F ES, FOL, GFR, PHOS, FERR, B12, MG, BMP, ADIFF, VBG, CBC, ANEU ####[place] [id number] ANAIFSon 05-24-2024 Antinuclear Ab Screen Negative Normal Negative [facility] Comment on above: Result Comment: Anti -nuclear antibody test is used as an aid in diagnosis of systemic autoimmune diseases. Where positive and clinically warranted, follow-up using disease-specific testing is recommended. Low positive titers are not uncommon with advanced age, certain chronic infections, and malignancies among others.Test methodology: Indirect fluorescence immunoassay (IFA) using HEp-2 cells.Performed By:[facility] [place] [id number] Director: Bin Montes III, M.D.CLIA#: [id number] Performed By: #### 0 [address], ANAIFS, CBC, FES, GFR, HEPAC, MG, TSHR, FERR, [id number], RF, HIV, ANEU, ADIFF, BMP ####[place] [address] B12on 05-24-2024 Cobalamin (Vitamin B12) [Mass/Vol] 587 pg/mL Normal 211-911 [facility] Comment on above: Performed By: #### F ES, FOL, GFR, PHOS, FERR, B12, MG, BMP, ADIFF, VBG, CBC, ANEU ####[address] [address] BGon 05-24-2024 Base excess Calc (Bld) [Moles/Vol] 15.0 mmol/L Normal [facility] Comment on above: Performed By: #### B G ####[place] [address] CO2 [Moles/Vol] 47.2 mmol/L Critically abnormal 22.0-30.0 [facility] Comment on above: Performed By: #### B G ####[place] [address] HCO3 (Bld) [Moles/Vol] 44.5 mmol/L High 21.0-29.0 [facility] Comment on above: Performed By: #### B G ####[place] [address] Oxygen (Bld) [Partial pressure] 65.1 mm[Hg] Low 74.0-108.0 [facility] Comment on above: Performed By: #### B G ####[place] [address] Oxygen saturation in Blood 91.8 % Low 92.0-96.0 [facility] Comment on above: Performed By: #### B G ####[place] [address] pCO2 87.8 mmHg Critically abnormal 32.0-46.0 [facility] Comment on above: Performed By: #### B G ####[place] [id number] pH (Bld) 7.323 [pH] Low 7.380-7.460 [facility] Comment on above: Performed By: #### B G ####[place] [address] BMPon 05-24-2024 BUN/Creatinine Ratio 44.9 ratio High 10.0-22.0 [facility] Comment on above: Performed By: #### F ES, FOL, GFR, PHOS, FERR, B12, MG, BMP, ADIFF, VBG, CBC, ANEU ####[address] [address] Calcium [Mass/Vol] 9.4 mg/dL Normal 8.7-10.4 [facility] Comment on above: Performed By: #### F ES, FOL, GFR, PHOS, FERR, B12, MG, BMP, ADIFF, VBG, CBC, ANEU ####[address] [address] Chloride [Moles/Vol] 96 mmol/L Low 98-110 [facility] Comment on above: Performed By: #### F ES, FOL, GFR, PHOS, FERR, B12, MG, BMP, ADIFF, VBG, CBC, ANEU ####[address] [address] CO2 [Moles/Vol] mmol/L Critically abnormal 22-32 [facility] Comment on above: Performed By: #### F ES, FOL, GFR, PHOS, FERR, B12, MG, BMP, ADIFF, VBG, CBC, ANEU ####[address] [address] Creatinine [Mass/Vol] 0.49 mg/dL Low 0.50-1.20 [facility] Comment on above: Result Comment: Test ing performed on [employer] analyzer using enzymatic creatinine methodology. Performed By: #### F ES, FOL, GFR, PHOS, FERR, B12, MG, BMP, ADIFF, VBG, CBC, ANEU ####[address] [address] Electrolyte Balance <5.0 Normal 4.0-15.0 [facility] Comment on above: Performed By: #### F ES, FOL, GFR, PHOS, FERR, B12, MG, BMP, ADIFF, VBG, CBC, ANEU ####[address] [address] Glucose [Mass/Vol] 106 mg/dL Normal 70-110 [facility] Comment on above: Performed By: #### F ES, FOL, GFR, PHOS, FERR, B12, MG, BMP, ADIFF, VBG, CBC, ANEU ####[address] [address] Potassium [Moles/Vol] 4.6 mmol/L Normal 3.5-5.0 [facility] Comment on above: Performed By: #### F ES, FOL, GFR, PHOS, FERR, B12, MG, BMP, ADIFF, VBG, CBC, ANEU ####[address] [address] Sodium [Moles/Vol] 141 mmol/L Normal 136-145 [facility] Comment on above: Performed By: #### F ES, FOL, GFR, PHOS, FERR, B12, MG, BMP, ADIFF, VBG, CBC, ANEU ####[place] [id number] Urea nitrogen [Mass/Vol] 22.0 mg/dL Normal 8.0-22.0 [facility] Comment on above: Performed By: #### F ES, FOL, GFR, PHOS, FERR, B12, MG, BMP, ADIFF, VBG, CBC, ANEU ####[address] [address] CBCon 05-24-2024 Erythrocyte distribution width (RBC) [Ratio] 15.4 % Normal 11.5-15.5 [facility] Comment on above: Performed By: #### F ES, FOL, GFR, PHOS, FERR, B12, MG, BMP, ADIFF, VBG, CBC, ANEU ####[place] [address] Hematocrit (Bld) [Volume fraction] 30.8 % Low 34.0-46.0 [facility] Comment on above: Performed By: #### F ES, FOL, GFR, PHOS, FERR, B12, MG, BMP, ADIFF, VBG, CBC, ANEU ####[place] [id number] Hgb 10.0 G/dL Low 12.0-16.0 [facility] Comment on above: Performed By: #### F ES, FOL, GFR, PHOS, FERR, B12, MG, BMP, ADIFF, VBG, CBC, ANEU ####[place] [address] MCH (RBC) [Entitic mass] 32.9 pg Normal 27.0-33.0 [facility] Comment on above: Performed By: #### F ES, FOL, GFR, PHOS, FERR, B12, MG, BMP, ADIFF, VBG, CBC, ANEU ####[place] [address] MCHC 32.4 G/dL Normal 32.0-36.0 [facility] Comment on above: Performed By: #### F ES, FOL, GFR, PHOS, FERR, B12, MG, BMP, ADIFF, VBG, CBC, ANEU ####[place] [address] MCV (RBC) [Entitic vol] 101.5 fL High 80.0-99.0 [facility] Comment on above: Performed By: #### F ES, FOL, GFR, PHOS, FERR, B12, MG, BMP, ADIFF, VBG, CBC, ANEU ####[place] [address] Platelet 177 10 3/mcL Normal 150-450 [facility] Comment on above: Performed By: #### F ES, FOL, GFR, PHOS, FERR, B12, MG, BMP, ADIFF, VBG, CBC, ANEU ####[place] [address] Platelet mean volume (Bld) [Entitic vol] 9.0 fL Normal 6.6-10.5 [facility] Comment on above: Performed By: #### F ES, FOL, GFR, PHOS, FERR, B12, MG, BMP, ADIFF, VBG, CBC, ANEU ####[place] [address] RBC 3.04 10 6/mcL Low 4.10-5.30 [facility] Comment on above: Performed By: #### F ES, FOL, GFR, PHOS, FERR, B12, MG, BMP, ADIFF, VBG, CBC, ANEU ####[place] [address] WBC 12.3 10 3/mcL High 4.5-10.8 [facility] Comment on above: Performed By: #### F ES, FOL, GFR, PHOS, FERR, B12, MG, BMP, ADIFF, VBG, CBC, ANEU ####[place] [address] [place] 05-24-2024 Ferritin [Mass/Vol] 79.4 ng/mL Normal 8.0-252.0 [facility] Comment on above: Performed By: #### F ES, FOL, GFR, PHOS, FERR, B12, MG, BMP, ADIFF, VBG, CBC, ANEU ####[place] [address] FESon 05-24-2024 Iron [Mass/Vol] 62 ug/dL Normal 50-170 [facility] Comment on above: Performed By: #### F ES, FOL, GFR, PHOS, FERR, B12, MG, BMP, ADIFF, VBG, CBC, ANEU ####[place] [address] Iron Sat 20 % Normal [facility] Comment on above: Performed By: #### F ES, FOL, GFR, PHOS, FERR, B12, MG, BMP, ADIFF, VBG, CBC, ANEU ####[place] [address] TIBC 309 mcg/dL Normal 250-500 [facility] Comment on above: Performed By: #### F ES, FOL, GFR, PHOS, FERR, B12, MG, BMP, ADIFF, VBG, CBC, ANEU ####[place] [address] FOLon 05-24-2024 Folate 11.93 ng/mL Normal 5.38-24.00 [facility] Comment on above: Performed By: #### F ES, FOL, GFR, PHOS, FERR, B12, MG, BMP, ADIFF, VBG, CBC, ANEU ####[place] [address] [place] [address] LABORATORYOrdered By: Jonathan Wilkins on 05-24-2024 CO2 [Moles/Vol] 47.2 mmol/L Invalid Interpretation Code 22.0 - 30.0 mmol/L [facility] HCO3 (Bld) [Moles/Vol] 44.5 mmol/L High 21.0 - 29.0 mmol/L [facility] Oxygen (Bld) [Partial pressure] 65.1 mm[Hg] Low 74.0 - 108.0 mm Hg [facility] pCO2 87.8 mm[Hg] Invalid Interpretation Code 32.0 - 46.0 mm Hg [facility] pH (Bld) 7.323 [pH] Low 7.380 - 7.460 [facility] Sodium [Moles/Vol] 15.0 mmol/L Invalid Interpretation Code [facility] LABORATORYOrdered By: SYSTEM SYSTEM on 05-24-2024 Troponin I.cardiac DL <= 0.01 ng/mL [Mass/Vol] 4 ng/L Normal 0 - 34 ng/L ADM SS Comment on above: Interpretive Data: High Sensitive Troponin I Reference Ranges: Female: 0-34 ng/L Male: 0-54 ng/L Testing performed on [employer] analyzer using direct chemiluminescent technology. Cobalamin (Vitamin B12) [Mass/Vol] 587 pg/mL Normal 211 - 911 pg/mL ADM SS Ferritin [Mass/Vol] 79.4 ng/mL Normal 8.0 - 25 2.0 ng/mL ADM SS Folate [Mass/Vol] 11.93 ng/mL Normal 5.38 - 24. 00 ng/mL ADM SS Iron [Mass/Vol] 62 ug/dL Normal 50 - 170 mcg/dL ADM SS Iron binding capacity [Mass/Vol] 309 mcg/dL Normal 250 - 500 mcg/dL ADM SS Iron saturation [Mass fraction] 20 % Invalid Interpretation Code ADM SS Phosphate [Mass/Vol] 4.4 mg/dL Normal 2.4 - 5 .1 mg/dL ADM SS Comment on above: Interpretive Data: * *Note - New Reference Range in effect 19 MGon 05-24-2024 Magnesium [Mass/Vol] 2.0 mg/dL Normal 1.6-2.4 [facility] Comment on above: Performed By: #### F ES, FOL, GFR, PHOS, FERR, B12, MG, BMP, ADIFF, VBG, CBC, ANEU ####[place] [address] PHOSon 05-24-2024 Phosphate [Mass/Vol] 4.4 mg/dL Normal 2.4-5.1 [facility] Comment on above: Result Comment: No te - New Reference Range in effect 19 Performed By: #### F ES, FOL, GFR, PHOS, FERR, B12, MG, BMP, ADIFF, VBG, CBC, ANEU ####[place] [address] RFon 05-24-2024 Rheumatoid Factor <6.0 Normal <=5.9 [facility] Comment on above: Result Comment: RF I gM Antibody by Enzyme Immunoassay: Negative < or = 6 Positive > 6A positive result indicates the presence of RF antibodiesand suggests the possibility of rheumatoid arthritis.A negative result indicates no RF IgM antibody or levelsbelow the negative cut-off of the assay.Results of this assay should be used in conjunction with clinical findings and other serological tests.These results were obtained with the [employer] QUANTA Lite RF IgM GAETANO. RF IgM values obtained with different manufacturers' assay methods may not be used interchangeably.The magnitude of the reported IgM levels cannot be correlated to an endpoint titer. Performed By: #### 0 [id number], ANAIFS, CBC, FES, GFR, HEPAC, MG, TSHR, FERR, [id number], RF, HIV, ANEU, ADIFF, BMP ####[place] [address] [id number] 05-24-2024 Anti-Scl-70 Abs 0.2 AI Normal 0.0-0.9 [facility] Comment on above: Result Comment: Perf ormed At: [facility] [id number] [place], [place] [id number] Vincent PhD Ph:[phone] Performed By: #### 0 [address], ANAIFS, CBC, FES, GFR, HEPAC, MG, TSHR, FERR, [id number], RF, HIV, ANEU, ADIFF, BMP ####[place] [address] SSABon 05-24-2024 Sjogrens SSA Ab <0.2 Normal 0.0-0.9 [facility] Comment on above: Performed By: #### 0 [address], ANAIFS, CBC, FES, GFR, HEPAC, MG, TSHR, FERR, [id number], RF, HIV, ANEU, ADIFF, BMP ####[place] [address] Sjogrens SSB Ab <0.2 Normal 0.0-0.9 [facility] Comment on above: Result Comment: Perf ormed At: [facility] [id number] Vincent PhD Ph:[phone] Performed By: #### 0 [address], ANAIFS, CBC, FES, GFR, HEPAC, MG, TSHR, FERR, [id number], RF, HIV, ANEU, ADIFF, BMP ####[place] [address] TROPHSon 05-24-2024 High Sensitivity Troponin I 4 ng/L Normal 0-34 [facility] Comment on above: Result Comment: High Sensitive Troponin I Reference Ranges:Female: 0-34 ng/LMale: 0-54 ng/LTesting performed on [employer] IM analyzer using direct chemiluminescent technology. Performed By: #### T ROPHS ####[place] [address] VBGon 05-24-2024 BE Venous 13.3 mmol/L High -3.0-3.0 [facility] Comment on above: Performed By: #### F ES, FOL, GFR, PHOS, FERR, B12, MG, BMP, ADIFF, VBG, CBC, ANEU ####[place] [address] CO2 [Moles/Vol] 46.7 mmol/L Critically abnormal 22.0-32.0 [facility] Comment on above: Performed By: #### F ES, FOL, GFR, PHOS, FERR, B12, MG, BMP, ADIFF, VBG, CBC, ANEU ####[place] [address] HCO3 (Bld) [Moles/Vol] 43.7 mmol/L High 21.0-30.0 [facility] Comment on above: Performed By: #### F ES, FOL, GFR, PHOS, FERR, B12, MG, BMP, ADIFF, VBG, CBC, ANEU ####[place] [address] Oxygen saturation in Blood 88.9 % High 70.0-75.0 [facility] Comment on above: Performed By: #### F ES, FOL, GFR, PHOS, FERR, B12, MG, BMP, ADIFF, VBG, CBC, ANEU ####[place] [address] pCO2 Satish 97.6 mmHg High 41.0-51.0 [facility] Comment on above: Performed By: #### F ES, FOL, GFR, PHOS, FERR, B12, MG, BMP, ADIFF, VBG, CBC, ANEU ####[place] [address] pH Venous 7.269 Low 7.380-7.460 [facility] Comment on above: Performed By: #### F ES, FOL, GFR, PHOS, FERR, B12, MG, BMP, ADIFF, VBG, CBC, ANEU ####[place] [address] pO2 Satish 61.9 mmHg High 35.0-40.0 [facility] Comment on above: Performed By: #### F ES, FOL, GFR, PHOS, FERR, B12, MG, BMP, ADIFF, VBG, CBC, ANEU ####[place] [address] .Auto Diffon 05-23-2024 Basophil, Absolute 0.1 10 3/mcL Normal 0.0-0.3 [facility] Comment on above: Performed By: #### G FR, MG, ANEU, BMP, CBC, ADIFF ####[place] [address] Basophils/100 WBC (Bld) 0.6 % Normal 0.0-2.5 [facility] Comment on above: Performed By: #### G FR, MG, ANEU, BMP, CBC, ADIFF ####[address] [address] Eosinophil, Absolute 0.7 10 3/mcL Normal 0.0-0.7 [facility] Comment on above: Performed By: #### G FR, MG, ANEU, BMP, CBC, ADIFF ####[address] [address] Eosinophils/100 WBC (Bld) 6.2 % High 0.0-6.0 [facility] Comment on above: Performed By: #### G FR, MG, ANEU, BMP, CBC, ADIFF ####[address] [address] Lymphocyte, Absolute 1.2 10 3/mcL Normal 0.9-4.3 [facility] Comment on above: Performed By: #### G FR, MG, ANEU, BMP, CBC, ADIFF ####[address] [address] Lymphocytes/100 WBC (Bld) 10.6 % Low 20.0-40.0 [facility] Comment on above: Performed By: #### G FR, MG, ANEU, BMP, CBC, ADIFF ####[address] [address] Monocyte, Absolute 1.0 10 3/mcL Normal 0.1-1.4 [facility] Comment on above: Performed By: #### G FR, MG, ANEU, BMP, CBC, ADIFF ####[address] [address] Monocytes/100 WBC (Bld) 9.4 % Normal 2.0-13.0 [facility] Comment on above: Performed By: #### G FR, MG, ANEU, BMP, CBC, ADIFF ####[address] [address] Neutrophils/100 WBC (Bld) 73.2 % Normal 50.0-75.0 [facility] Comment on above: Performed By: #### G FR, MG, ANEU, BMP, CBC, ADIFF ####[place] [id number] .GFRon 05-23-2024 Estimated Glomerular Filtration Rate 120 ml/min/1.73sqm Normal [facility] Comment on above: Result Comment: Stag es of Chronic Kidney Disease (CKD)Stage Description eGFR(ml/min/1.73 sq.m.)CKD 1 Normal kidney function or >=90 normal kindney function with possible kidney damage (ex. Proteinuria)CKD 2 Kidney damage with mild loss 60-89 of kidney functionCKD 3a Mild to moderate loss of kidney 45-59 functionCKD 3b Moderate to severe loss of 30-44 of kindey function CKD 4 Severe loss of kidney function 15-29CKD 5 Kidney failure <15Note: (go live 2024) the eGFR calculation was updated to the KD-EPI creatinine equation without a race factor to calculate theeGFR results. Performed By: #### G FR, MG, ANEU, BMP, CBC, ADIFF ####[place] [address] .NEUABSon 05-23-2024 Neutrophil, Absolute 8.1 10 3/mcL Normal 2.3-8.1 [facility] Comment on above: Performed By: #### G FR, MG, ANEU, BMP, CBC, ADIFF ####[place] [address] BMPon 05-23-2024 CO2 [Moles/Vol] mmol/L Critically abnormal 22-32 [facility] Comment on above: Performed By: #### G FR, MG, ANEU, BMP, CBC, ADIFF ####[place] [address] Electrolyte Balance Unable to Calculate Normal 4.0-15. 0 [facility] Comment on above: Result Comment: Unab le to calculate this test result accurately. Results used to calculate this test are outside the reportable range. Performed By: #### G FR, MG, ANEU, BMP, CBC, ADIFF ####[place] [address] BUN/Creatinine Ratio 45.1 ratio High 10.0-22.0 [facility] Comment on above: Performed By: #### G FR, MG, ANEU, BMP, CBC, ADIFF ####[address] [address] Calcium [Mass/Vol] 9.0 mg/dL Normal 8.7-10.4 [facility] Comment on above: Performed By: #### G FR, MG, ANEU, BMP, CBC, ADIFF ####[address] [address] Chloride [Moles/Vol] 96 mmol/L Low 98-110 [facility] Comment on above: Performed By: #### G FR, MG, ANEU, BMP, CBC, ADIFF ####[address] [address] Creatinine [Mass/Vol] 0.51 mg/dL Normal 0.50-1.20 [facility] Comment on above: Result Comment: Test ing performed on [employer] analyzer using enzymatic creatinine methodology. Performed By: #### G FR, MG, ANEU, BMP, CBC, ADIFF ####[address] [address] Glucose [Mass/Vol] 110 mg/dL Normal 70-110 [facility] Comment on above: Performed By: #### G FR, MG, ANEU, BMP, CBC, ADIFF ####[address] [address] Potassium [Moles/Vol] 4.6 mmol/L Normal 3.5-5.0 [facility] Comment on above: Performed By: #### G FR, MG, ANEU, BMP, CBC, ADIFF ####[address] [address] Sodium [Moles/Vol] 141 mmol/L Normal 136-145 [facility] Comment on above: Performed By: #### G FR, MG, ANEU, BMP, CBC, ADIFF ####[address] [address] Urea nitrogen [Mass/Vol] 23.0 mg/dL High 8.0-22.0 [facility] Comment on above: Performed By: #### G FR, MG, ANEU, BMP, CBC, ADIFF ####[place] [address] CBCon 05-23-2024 Erythrocyte distribution width (RBC) [Ratio] 15.3 % Normal 11.5-15.5 [facility] Comment on above: Performed By: #### G FR, MG, ANEU, BMP, CBC, ADIFF ####[place] [address] Hematocrit (Bld) [Volume fraction] 29.6 % Low 34.0-46.0 [facility] Comment on above: Performed By: #### G FR, MG, ANEU, BMP, CBC, ADIFF ####[place] [address] Hgb 9.5 G/dL Low 12.0-16.0 [facility] Comment on above: Performed By: #### G FR, MG, ANEU, BMP, CBC, ADIFF ####[place] [address] MCH (RBC) [Entitic mass] 32.5 pg Normal 27.0-33.0 [facility] Comment on above: Performed By: #### G FR, MG, ANEU, BMP, CBC, ADIFF ####[place] [address] MCHC 32.2 G/dL Normal 32.0-36.0 [facility] Comment on above: Performed By: #### G FR, MG, ANEU, BMP, CBC, ADIFF ####[place] [address] MCV (RBC) [Entitic vol] 100.7 fL High 80.0-99.0 [facility] Comment on above: Performed By: #### G FR, MG, ANEU, BMP, CBC, ADIFF ####[place] [address] Platelet 177 10 3/mcL Normal 150-450 [facility] Comment on above: Performed By: #### G FR, MG, ANEU, BMP, CBC, ADIFF ####[place] [address] Platelet mean volume (Bld) [Entitic vol] 8.6 fL Normal 6.6-10.5 [facility] Comment on above: Performed By: #### G FR, MG, ANEU, BMP, CBC, ADIFF ####[place] [address] RBC 2.94 10 6/mcL Low 4.10-5.30 [facility] Comment on above: Performed By: #### G FR, MG, ANEU, BMP, CBC, ADIFF ####[place] [address] WBC 11.0 10 3/mcL High 4.5-10.8 [facility] Comment on above: Performed By: #### G FR, MG, ANEU, BMP, CBC, ADIFF ####[place] [address] MGon 05-23-2024 Magnesium [Mass/Vol] 2.2 mg/dL Normal 1.6-2.4 [facility] Comment on above: Performed By: #### G FR, MG, ANEU, BMP, CBC, ADIFF ####[place] [address] .Auto Diffon 05-22-2024 Basophil, Absolute 0.0 10 3/mcL Normal 0.0-0.3 [facility] Comment on above: Performed By: #### B MP, ANEU, ADIFF, MG, CBC, GFR ####[place] [address] Basophils/100 WBC (Bld) 0.3 % Normal 0.0-2.5 [facility] Comment on above: Performed By: #### B MP, ANEU, ADIFF, MG, CBC, GFR ####[place] [address] Eosinophil, Absolute 0.7 10 3/mcL Normal 0.0-0.7 [facility] Comment on above: Performed By: #### B MP, ANEU, ADIFF, MG, CBC, GFR ####[place] [address] Eosinophils/100 WBC (Bld) 5.8 % Normal 0.0-6.0 [facility] Comment on above: Performed By: #### B MP, ANEU, ADIFF, MG, CBC, GFR ####[address] [address] Lymphocyte, Absolute 1.4 10 3/mcL Normal 0.9-4.3 [facility] Comment on above: Performed By: #### B MP, ANEU, ADIFF, MG, CBC, GFR ####[address] [address] Lymphocytes/100 WBC (Bld) 11.8 % Low 20.0-40.0 [facility] Comment on above: Performed By: #### B MP, ANEU, ADIFF, MG, CBC, GFR ####[address] [address] Monocyte, Absolute 0.9 10 3/mcL Normal 0.1-1.4 [facility] Comment on above: Performed By: #### B MP, ANEU, ADIFF, MG, CBC, GFR ####[address] [address] Monocytes/100 WBC (Bld) 7.8 % Normal 2.0-13.0 [facility] Comment on above: Performed By: #### B MP, ANEU, ADIFF, MG, CBC, GFR ####[address] [address] Neutrophils/100 WBC (Bld) 74.3 % Normal 50.0-75.0 [facility] Comment on above: Performed By: #### B MP, ANEU, ADIFF, MG, CBC, GFR ####09 [address] [address] .GFRon 05-22-2024 GFR/1.73 sq M.predicted among non-blacks MDRD (S/P/Bld) [Vol rate/Area] mL/min/{1.73_m2} Normal [facility] Comment on above: Result Comment: Stag es of Chronic Kidney Disease (CKD)Stage Description eGFR(ml/min/1.73 sq.m.)CKD 1 Normal kidney function or >=90 normal kindney function with possible kidney damage (ex. Proteinuria)CKD 2 Kidney damage with mild loss 60-89 of kidney functionCKD 3a Mild to moderate loss of kidney 45-59 functionCKD 3b Moderate to severe loss of 30-44 of kindey function CKD 4 Severe loss of kidney function 15-29CKD 5 Kidney failure <15Note: (go live 2024) the eGFR calculation was updated to the KD-EPI creatinine equation without a race factor to calculate theeGFR results. Performed By: #### B MP, ANEU, ADIFF, MG, CBC, GFR ####[address] [address] .NEUABSon 05-22-2024 Neutrophil, Absolute 9.1 10 3/mcL High 2.3-8.1 [facility] Comment on above: Performed By: #### B MP, ANEU, ADIFF, MG, CBC, GFR ####[place] [address] BMPon 05-22-2024 BUN/Creatinine Ratio 39.1 ratio High 10.0-22.0 [facility] Comment on above: Order Comment: vrb- called critical CO2 to RN Dylon Villasenor 05/22/2024 03:25:10 EDT SAS Performed By: #### B MP, ANEU, ADIFF, MG, CBC, GFR ####[place] [address] Calcium [Mass/Vol] 9.1 mg/dL Normal 8.7-10.4 [facility] Comment on above: Order Comment: vrb- called critical CO2 to RN Dylon Villasenor 05/22/2024 03:25:10 EDT SAS Performed By: #### B MP, ANEU, ADIFF, MG, CBC, GFR ####[address] [address] Chloride [Moles/Vol] 98 mmol/L Normal 98-110 [facility] Comment on above: Order Comment: vrb- called critical CO2 to RN Dylon Villasenor 05/22/2024 03:25:10 EDT SAS Performed By: #### B MP, ANEU, ADIFF, MG, CBC, GFR ####[address] [address] Creatinine [Mass/Vol] 0.46 mg/dL Low 0.50-1.20 [facility] Comment on above: Order Comment: vrb- called critical CO2 to RN Dylon Villasenor 05/22/2024 03:25:10 EDT SAS Result Comment: Test ing performed on Place[employer]logger analyzer using enzymatic creatinine methodology. Performed By: #### B MP, ANEU, ADIFF, MG, CBC, GFR ####[address] [address] Glucose [Mass/Vol] 112 mg/dL High 70-110 [facility] Comment on above: Order Comment: vrb- called critical CO2 to RN Dylon Villasenor 05/22/2024 03:25:10 EDT SAS Performed By: #### B MP, ANEU, ADIFF, MG, CBC, GFR ####[address] [address] Potassium [Moles/Vol] 4.4 mmol/L Normal 3.5-5.0 [facility] Comment on above: Order Comment: vrb- called critical CO2 to RN Dylon Villasenor 05/22/2024 03:25:10 EDT SAS Performed By: #### B MP, ANEU, ADIFF, MG, CBC, GFR ####[address] [address] Sodium [Moles/Vol] 142 mmol/L Normal 136-145 [facility] Comment on above: Order Comment: vrb- called critical CO2 to RN Dylon Villasenor 05/22/2024 03:25:10 EDT SAS Performed By: #### B MP, ANEU, ADIFF, MG, CBC, GFR ####[address] [address] Urea nitrogen [Mass/Vol] 18.0 mg/dL Normal 8.0-22.0 [facility] Comment on above: Order Comment: vrb- called critical CO2 to RN Dylon Fullerer 05/22/2024 03:25:10 EDT SAS Performed By: #### B MP, ANEU, ADIFF, MG, CBC, GFR ####[address] [address] CO2 [Moles/Vol] mmol/L Critically abnormal 22-32 [facility] Comment on above: Order Comment: vrb- called critical CO2 to RODRÍGUEZ Villasenor 05/22/2024 03:25:10 EDT SAS Performed By: #### B MP, ANEU, ADIFF, MG, CBC, GFR ####[place] [address] Electrolyte Balance See Comment Normal 4.0-15.0 [facility] Comment on above: Order Comment: vrb- called critical CO2 to RODRÍGUEZ Villasenor 05/22/2024 03:25:10 EDT SAS Result Comment: Unab le to calculate this test result accurately. Results used to calculate this test are outside the reportable range. Performed By: #### B MP, ANEU, ADIFF, MG, CBC, GFR ####[place] [address] CBCon 05-22-2024 Erythrocyte distribution width (RBC) [Ratio] 14.6 % Normal 11.5-15.5 [facility] Comment on above: Performed By: #### B MP, ANEU, ADIFF, MG, CBC, GFR ####[place] [address] Hematocrit (Bld) [Volume fraction] 30.9 % Low 34.0-46.0 [facility] Comment on above: Performed By: #### B MP, ANEU, ADIFF, MG, CBC, GFR ####[place] [address] Hgb 9.7 G/dL Low 12.0-16.0 [facility] Comment on above: Performed By: #### B MP, ANEU, ADIFF, MG, CBC, GFR ####[place] [address] MCH (RBC) [Entitic mass] 31.7 pg Normal 27.0-33.0 [facility] Comment on above: Performed By: #### B MP, ANEU, ADIFF, MG, CBC, GFR ####[place] [address] MCHC 31.4 G/dL Low 32.0-36.0 [facility] Comment on above: Performed By: #### B MP, ANEU, ADIFF, MG, CBC, GFR ####[place] [address] MCV (RBC) [Entitic vol] 100.9 fL High 80.0-99.0 [facility] Comment on above: Performed By: #### B MP, ANEU, ADIFF, MG, CBC, GFR ####[place] [address] Platelet 190 10 3/mcL Normal 150-450 [facility] Comment on above: Performed By: #### B MP, ANEU, ADIFF, MG, CBC, GFR ####[place] [address] Platelet mean volume (Bld) [Entitic vol] 9.2 fL Normal 6.6-10.5 [facility] Comment on above: Performed By: #### B MP, ANEU, ADIFF, MG, CBC, GFR ####[place] [address] RBC 3.07 10 6/mcL Low 4.10-5.30 [facility] Comment on above: Performed By: #### B MP, ANEU, ADIFF, MG, CBC, GFR ####[place] [address] WBC 12.2 10 3/mcL High 4.5-10.8 [facility] Comment on above: Performed By: #### B MP, ANEU, ADIFF, MG, CBC, GFR ####[place] [address] MGon 05-22-2024 Magnesium [Mass/Vol] 2.4 mg/dL Normal 1.6-2.4 [facility] Comment on above: Performed By: #### B MP, ANEU, ADIFF, MG, CBC, GFR ####[place] [address] .Auto Diffon 05-21-2024 Basophil, Absolute 0.1 10 3/mcL Normal 0.0-0.3 [facility] Comment on above: Performed By: #### A DAISY, ADIFF, CBC ####[address] [address] Basophils/100 WBC (Bld) 0.6 % Normal 0.0-2.5 [facility] Comment on above: Performed By: #### A YESENIA VILLAIFF, CBC ####[address] [address] Eosinophil, Absolute 0.7 10 3/mcL Normal 0.0-0.7 [facility] Comment on above: Performed By: #### A YESENIA VILLAIFF, CBC ####[address] [address] Eosinophils/100 WBC (Bld) 5.1 % Normal 0.0-6.0 [facility] Comment on above: Performed By: #### A KENA VILLA, CBC ####[address] [address] Lymphocyte, Absolute 1.4 10 3/mcL Normal 0.9-4.3 [facility] Comment on above: Performed By: #### A YESENIA VILLAIFF, CBC ####[address] [address] Lymphocytes/100 WBC (Bld) 10.5 % Low 20.0-40.0 [facility] Comment on above: Performed By: #### A KENA VILLA, CBC ####[address] [address] Monocyte, Absolute 1.1 10 3/mcL Normal 0.1-1.4 [facility] Comment on above: Performed By: #### A YESENIA VILLAIFF, CBC ####[address] [address] Monocytes/100 WBC (Bld) 8.1 % Normal 2.0-13.0 [facility] Comment on above: Performed By: #### A KENA VILLA, CBC ####[address] [address] Neutrophils/100 WBC (Bld) 75.7 % High 50.0-75.0 [facility] Comment on above: Performed By: #### A YESENIA VILLAIFF, CBC ####[address] [address] Basophil, Absolute 0.0 10 3/mcL Normal 0.0-0.3 [facility] Comment on above: Performed By: #### 0 68836, ANAIFS, CBC, FES, GFR, HEPAC, MG, TSHR, FERR, [id number], RF, HIV, ANEU, ADIFF, BMP ####[address] [address] Basophils/100 WBC (Bld) 0.3 % Normal 0.0-2.5 [facility] Comment on above: Performed By: #### 0 13636, ANAIFS, CBC, FES, GFR, HEPAC, MG, TSHR, FERR, [id number], RF, HIV, ANEU, ADIFF, BMP ####[address] [address] Eosinophil, Absolute 0.8 10 3/mcL High 0.0-0.7 [facility] Comment on above: Performed By: #### 0 [address]190, ANAIFS, CBC, FES, GFR, HEPAC, MG, TSHR, FERR, [id number], RF, HIV, ANEU, ADIFF, BMP ####[address] [address] Eosinophils/100 WBC (Bld) 6.0 % Normal 0.0-6.0 [facility] Comment on above: Performed By: #### 0 43340, ANAIFS, CBC, FES, GFR, HEPAC, MG, TSHR, FERR, [id number], RF, HIV, ANEU, ADIFF, BMP ####[address] [address] Lymphocyte, Absolute 1.3 10 3/mcL Normal 0.9-4.3 [facility] Comment on above: Performed By: #### 0 17141, ANAIFS, CBC, FES, GFR, HEPAC, MG, TSHR, FERR, [id number], RF, HIV, ANEU, ADIFF, BMP ####[address] [address] Lymphocytes/100 WBC (Bld) 10.4 % Low 20.0-40.0 [facility] Comment on above: Performed By: #### 0 38004, ANAIFS, CBC, FES, GFR, HEPAC, MG, TSHR, FERR, [id number], RF, HIV, ANEU, ADIFF, BMP ####[address] [address] Monocyte, Absolute 1.1 10 3/mcL Normal 0.1-1.4 [facility] Comment on above: Performed By: #### 0 [address]1978, ANAIFS, CBC, FES, GFR, HEPAC, MG, TSHR, FERR, [id number], RF, HIV, ANEU, ADIFF, BMP ####[address] [address] Monocytes/100 WBC (Bld) 8.9 % Normal 2.0-13.0 [facility] Comment on above: Performed By: #### 0 83949, ANAIFS, CBC, FES, GFR, HEPAC, MG, TSHR, FERR, [id number], RF, HIV, ANEU, ADIFF, BMP ####[address] [address] Neutrophils/100 WBC (Bld) 74.4 % Normal 50.0-75.0 [facility] Comment on above: Performed By: #### 0 07110, ANAIFS, CBC, FES, GFR, HEPAC, MG, TSHR, FERR, [id number], RF, HIV, ANEU, ADIFF, BMP ####[address] [address] .GFRon 05-21-2024 GFR/1.73 sq M.predicted among non-blacks MDRD (S/P/Bld) [Vol rate/Area] mL/min/{1.73_m2} Normal [facility] Comment on above: Result Comment: Stag es of Chronic Kidney Disease (CKD)Stage Description eGFR(ml/min/1.73 sq.m.)CKD 1 Normal kidney function or >=90 normal kindney function with possible kidney damage (ex. Proteinuria)CKD 2 Kidney damage with mild loss 60-89 of kidney functionCKD 3a Mild to moderate loss of kidney 45-59 functionCKD 3b Moderate to severe loss of 30-44 of kindey function CKD 4 Severe loss of kidney function 15-29CKD 5 Kidney failure <15Note: ( live 04/13/2024) the eGFR calculation was updated to the KD-EPI creatinine equation without a race factor to calculate theeGFR results. Performed By: #### C MP, VBGC, LAC, GFR ####[place] [address] Estimated Glomerular Filtration Rate 118 ml/min/1.73sqm Normal [facility] Comment on above: Result Comment: Stag es of Chronic Kidney Disease (CKD)Stage Description eGFR(ml/min/1.73 sq.m.)CKD 1 Normal kidney function or >=90 normal kindney function with possible kidney damage (ex. Proteinuria)CKD 2 Kidney damage with mild loss 60-89 of kidney functionCKD 3a Mild to moderate loss of kidney 45-59 functionCKD 3b Moderate to severe loss of 30-44 of kindey function CKD 4 Severe loss of kidney function 15-29CKD 5 Kidney failure <15Note: ( live 04/13/2024) the eGFR calculation was updated to the KD-EPI creatinine equation without a race factor to calculate theeGFR results. Performed By: #### 0 45250, ANAIFS, CBC, FES, GFR, HEPAC, MG, TSHR, FERR, [id number], RF, HIV, ANEU, ADIFF, BMP ####[place] [address] .NEUABSon 05-21-2024 Neutrophil, Absolute 10.1 10 3/mcL High 2.3-8.1 [facility] Comment on above: Performed By: #### A DAISY, ADIFF, CBC ####[place] [address] Neutrophil, Absolute 9.4 10 3/mcL High 2.3-8.1 [facility] Comment on above: Performed By: #### 0 70066, ANAIFS, CBC, FES, GFR, HEPAC, MG, TSHR, FERR, [id number], RF, HIV, ANEU, ADIFF, BMP ####[place] [address] BMPon 05-21-2024 CO2 [Moles/Vol] mmol/L Critically abnormal 22-32 [facility] Comment on above: Performed By: #### 0 32510, ANAIFS, CBC, FES, GFR, HEPAC, MG, TSHR, FERR, [id number], RF, HIV, ANEU, ADIFF, BMP ####[address] [address] Electrolyte Balance Unable to Calculate Normal 4.0-15. 0 [facility] Comment on above: Result Comment: Unab le to calculate this test result accurately. Results used to calculate this test are outside the reportable range. Performed By: #### 0 37968, ANAIFS, CBC, FES, GFR, HEPAC, MG, TSHR, FERR, [id number], RF, HIV, ANEU, ADIFF, BMP ####[address] [address] BUN/Creatinine Ratio 40.0 ratio High 10.0-22.0 [facility] Comment on above: Performed By: #### 0 75744, ANAIFS, CBC, FES, GFR, HEPAC, MG, TSHR, FERR, [id number], RF, HIV, ANEU, ADIFF, BMP ####[address] [address] Calcium [Mass/Vol] 9.2 mg/dL Normal 8.7-10.4 [facility] Comment on above: Performed By: #### 0 67171, ANAIFS, CBC, FES, GFR, HEPAC, MG, TSHR, FERR, [id number], RF, HIV, ANEU, ADIFF, BMP ####[place] [id number] Chloride [Moles/Vol] 95 mmol/L Low 98-110 [facility] Comment on above: Performed By: #### 0 87776, ANAIFS, CBC, FES, GFR, HEPAC, MG, TSHR, FERR, [id number], RF, HIV, ANEU, ADIFF, BMP ####[address] [address] Creatinine [Mass/Vol] 0.55 mg/dL Normal 0.50-1.20 [facility] Comment on above: Result Comment: Test ing performed on [employer] analyzer using enzymatic creatinine methodology. Performed By: #### 0 98558, ANAIFS, CBC, FES, GFR, HEPAC, MG, TSHR, FERR, [id number], RF, HIV, ANEU, ADIFF, BMP ####[address] [address] Glucose [Mass/Vol] 110 mg/dL Normal 70-110 [facility] Comment on above: Performed By: #### 0 89281, ANAIFS, CBC, FES, GFR, HEPAC, MG, TSHR, FERR, 106821, RF, HIV, ANEU, ADIFF, BMP ####[address] [address] Potassium [Moles/Vol] 4.0 mmol/L Normal 3.5-5.0 [facility] Comment on above: Performed By: #### 0 82250, ANAIFS, CBC, FES, GFR, HEPAC, MG, TSHR, FERR, [id number], RF, HIV, ANEU, ADIFF, BMP ####[place] [id number] Sodium [Moles/Vol] 145 mmol/L Normal 136-145 [facility] Comment on above: Performed By: #### 0 16094, ANAIFS, CBC, FES, GFR, HEPAC, MG, TSHR, FERR, 212284, RF, HIV, ANEU, ADIFF, BMP ####[place] [address] Urea nitrogen [Mass/Vol] 22.0 mg/dL Normal 8.0-22.0 [facility] Comment on above: Performed By: #### 0 58585, ANAIFS, CBC, FES, GFR, HEPAC, MG, TSHR, FERR, [id number], RF, HIV, ANEU, ADIFF, BMP ####[address] [address] CBCon 05-21-2024 Erythrocyte distribution width (RBC) [Ratio] 14.8 % Normal 11.5-15.5 [facility] Comment on above: Performed By: #### A DAISY, ADIFF, CBC ####[place] [address] Hematocrit (Bld) [Volume fraction] 32.8 % Low 34.0-46.0 [facility] Comment on above: Performed By: #### A KENA VILLA, CBC ####[place] [address] Hgb 10.6 G/dL Low 12.0-16.0 [facility] Comment on above: Performed By: #### A KENA VILLA, CBC ####[place] [address] MCH (RBC) [Entitic mass] 32.4 pg Normal 27.0-33.0 [facility] Comment on above: Performed By: #### A KENA VILLA, CBC ####[place] [address] MCHC 32.4 G/dL Normal 32.0-36.0 [facility] Comment on above: Performed By: #### A KENA VILLA, CBC ####[place] [address] MCV (RBC) [Entitic vol] 100.0 fL High 80.0-99.0 [facility] Comment on above: Performed By: #### A KENA VILLA, CBC ####[place] [address] Platelet 205 10 3/mcL Normal 150-450 [facility] Comment on above: Performed By: #### A KENA VILLA, CBC ####[place] [address] Platelet mean volume (Bld) [Entitic vol] 8.7 fL Normal 6.6-10.5 [facility] Comment on above: Performed By: #### A KENA VILLA, CBC ####[place] [address] RBC 3.28 10 6/mcL Low 4.10-5.30 [facility] Comment on above: Performed By: #### A KENA VILLA, CBC ####[place] [address] WBC 13.3 10 3/mcL High 4.5-10.8 [facility] Comment on above: Performed By: #### A YESENIA VILLAIFF, CBC ####[place] [address] Erythrocyte distribution width (RBC) [Ratio] 14.9 % Normal 11.5-15.5 [facility] Comment on above: Performed By: #### 0 31059, ANAIFS, CBC, FES, GFR, HEPAC, MG, TSHR, FERR, [id number], RF, HIV, ANEU, ADIFF, BMP ####[place] [address] Hematocrit (Bld) [Volume fraction] 32.4 % Low 34.0-46.0 [facility] Comment on above: Performed By: #### 0 53842, ANAIFS, CBC, FES, GFR, HEPAC, MG, TSHR, FERR, [id number], RF, HIV, ANEU, ADIFF, BMP ####[place] [address] Hgb 10.4 G/dL Low 12.0-16.0 [facility] Comment on above: Performed By: #### 0 93020, ANAIFS, CBC, FES, GFR, HEPAC, MG, TSHR, FERR, [id number], RF, HIV, ANEU, ADIFF, BMP ####[place] [address] MCH (RBC) [Entitic mass] 32.2 pg Normal 27.0-33.0 [facility] Comment on above: Performed By: #### 0 77483, ANAIFS, CBC, FES, GFR, HEPAC, MG, TSHR, FERR, [id number], RF, HIV, ANEU, ADIFF, BMP ####[place] [address] MCHC 32.0 G/dL Normal 32.0-36.0 [facility] Comment on above: Performed By: #### 0 23322, ANAIFS, CBC, FES, GFR, HEPAC, MG, TSHR, FERR, [id number], RF, HIV, ANEU, ADIFF, BMP ####[place] [id number] MCV (RBC) [Entitic vol] 100.7 fL High 80.0-99.0 [facility] Comment on above: Performed By: #### 0 86088, ANAIFS, CBC, FES, GFR, HEPAC, MG, TSHR, FERR, [id number], RF, HIV, ANEU, ADIFF, BMP ####[place] [address] Platelet 202 10 3/mcL Normal 150-450 [facility] Comment on above: Performed By: #### 0 23416, ANAIFS, CBC, FES, GFR, HEPAC, MG, TSHR, FERR, [id number], RF, HIV, ANEU, ADIFF, BMP ####[place] [address] Platelet mean volume (Bld) [Entitic vol] 8.7 fL Normal 6.6-10.5 [facility] Comment on above: Performed By: #### 0 99462, ANAIFS, CBC, FES, GFR, HEPAC, MG, TSHR, FERR, [id number], RF, HIV, ANEU, ADIFF, BMP ####[place] [address] RBC 3.22 10 6/mcL Low 4.10-5.30 [facility] Comment on above: Performed By: #### 0 08697, ANAIFS, CBC, FES, GFR, HEPAC, MG, TSHR, FERR, [id number], RF, HIV, ANEU, ADIFF, BMP ####[place] [address] WBC 12.6 10 3/mcL High 4.5-10.8 [facility] Comment on above: Performed By: #### 0 98373, ANAIFS, CBC, FES, GFR, HEPAC, MG, TSHR, FERR, 964901, RF, HIV, ANEU, ADIFF, BMP ####[place] [address] CMPon 05-21-2024 CO2 [Moles/Vol] mmol/L Critically abnormal -32 [facility] Comment on above: Performed By: #### C MP, VBGC, LAC, GFR ####[id number] [place] [address] Electrolyte Balance Unable to Calculate Normal 4.0-15. 0 [facility] Comment on above: Result Comment: Unab le to calculate this test result accurately. Results used to calculate this test are outside the reportable range. Performed By: #### C MP, VBGC, LAC, GFR ####[address] [address] Albumin Level 2.7 G/dL Low 3.2-4.8 [facility] Comment on above: Performed By: #### C MP, VBGC, LAC, GFR ####[place] [address] Albumin/Globulin [Mass ratio] 0.7 {ratio} Low 0.9-1.6 [facility] Comment on above: Performed By: #### C MP, VBGC, LAC, GFR ####[address] [address] ALP [Catalytic activity/Vol] 84 U/L Normal 38-126 [facility] Comment on above: Performed By: #### C MP, VBGC, LAC, GFR ####[place] [id number] ALT [Catalytic activity/Vol] 25 U/L Normal 10-49 [facility] Comment on above: Performed By: #### C MP, VBGC, LAC, GFR ####[address] [address] AST [Catalytic activity/Vol] 21 U/L Normal 8-34 [facility] Comment on above: Performed By: #### C MP, VBGC, LAC, GFR ####[place] [id number] Bili Total 0.30 mg/dL Normal 0.20-1.20 [facility] Comment on above: Result Comment: Use of this assay is not recommended for patients undergoing treatment with eltrombopag due to the potential for falsely elevated results. Performed By: #### C MP, VBGC, LAC, GFR ####[place] [id number] BUN/Creatinine Ratio 42.5 ratio High 10.0-22.0 [facility] Comment on above: Performed By: #### C MP, VBGC, LAC, GFR ####[address] [address] Calcium [Mass/Vol] 9.2 mg/dL Normal 8.7-10.4 [facility] Comment on above: Performed By: #### C MP, VBGC, LAC, GFR ####[address] [address] Chloride [Moles/Vol] 94 mmol/L Low 98-110 [facility] Comment on above: Performed By: #### C MP, VBGC, LAC, GFR ####[address] [address] Creatinine [Mass/Vol] 0.40 mg/dL Low 0.50-1.20 [facility] Comment on above: Result Comment: Test ing performed on Place[employer] analyzer using enzymatic creatinine methodology. Performed By: #### C MP, VBGC, LAC, GFR ####[address] [address] Globulin 3.9 G/dL High 1.5-3.8 [facility] Comment on above: Performed By: #### C MP, VBGC, LAC, GFR ####[address] [address] Glucose [Mass/Vol] 91 mg/dL Normal 70-110 [facility] Comment on above: Performed By: #### C MP, VBGC, LAC, GFR ####[address] [address] Potassium [Moles/Vol] 4.2 mmol/L Normal 3.5-5.0 [facility] Comment on above: Performed By: #### C MP, VBGC, LAC, GFR ####[address] [address] Sodium [Moles/Vol] 141 mmol/L Normal 136-145 [facility] Comment on above: Performed By: #### C MP, VBGC, LAC, GFR ####[address] [address] Total Protein 6.6 G/dL Normal 5.7-8.2 [facility] Comment on above: Performed By: #### C MP, VBGC, LAC, GFR ####[place] [address] Urea nitrogen [Mass/Vol] 17.0 mg/dL Normal 8.0-22.0 [facility] Comment on above: Performed By: #### C MP, VBGC, LAC, GFR ####[place] [address] [place] 05-21-2024 Ferritin [Mass/Vol] 97.0 ng/mL Normal 8.0-252.0 [facility] Comment on above: Performed By: #### 0 56730, ANAIFS, CBC, FES, GFR, HEPAC, MG, TSHR, FERR, [id number], RF, HIV, ANEU, ADIFF, BMP ####[place] [address] FESon 05-21-2024 Iron [Mass/Vol] 78 ug/dL Normal 50-170 [facility] Comment on above: Performed By: #### 0 85030, ANAIFS, CBC, FES, GFR, HEPAC, MG, TSHR, FERR, [id number], RF, HIV, ANEU, ADIFF, BMP ####[place] [address] Iron Sat 23 % Normal [facility] Comment on above: Performed By: #### 0 15773, ANAIFS, CBC, FES, GFR, HEPAC, MG, TSHR, FERR, [id number], RF, HIV, ANEU, ADIFF, BMP ####[place] [address] TIBC 341 mcg/dL Normal 250-500 [facility] Comment on above: Performed By: #### 0 06750, ANAIFS, CBC, FES, GFR, HEPAC, MG, TSHR, FERR, [id number], RF, HIV, ANEU, ADIFF, BMP ####[place] [address] HEPACon 05-21-2024 Hep A IgM Ab Non-Reactive Normal Non-Reactive [facility] Comment on above: Performed By: #### 0 [id number], ANAIFS, CBC, FES, GFR, HEPAC, MG, TSHR, FERR, [id number], RF, HIV, ANEU, ADIFF, BMP ####[place] [address] Hep A IgM Ab Int [facility] Comment on above: Result Comment: No s erological evidence of a current Hepatitis A infection.See Interp Performed By: #### 0 [id number], ANAIFS, CBC, FES, GFR, HEPAC, MG, TSHR, FERR, [id number], RF, HIV, ANEU, ADIFF, BMP ####[place] [address] Hep B Core IgM Ab Non-Reactive Normal Non-Reactive [facility] Comment on above: Performed By: #### 0 98937, ANAIFS, CBC, FES, GFR, HEPAC, MG, TSHR, FERR, [id number], RF, HIV, ANEU, ADIFF, BMP ####[place] [address] Hep B Core IgM Ab Int [facility] Comment on above: Result Comment: Samp les with a value < 0.80 Index are considered nonreactive (negative) for IgM antibodies to hepatitis B core antigen.See Interp Performed By: #### 0 94942, ANAIFS, CBC, FES, GFR, HEPAC, MG, TSHR, FERR, [id number], RF, HIV, ANEU, ADIFF, BMP ####[place] [address] Hep B Surf Ag Non-Reactive Normal Non-Reactive [facility] Comment on above: Performed By: #### 0 63028, ANAIFS, CBC, FES, GFR, HEPAC, MG, TSHR, FERR, [id number], RF, HIV, ANEU, ADIFF, BMP ####[place] [address] Hep C Ab Non-Reactive Normal Non-[facility] Comment on above: Performed By: #### 0 [id number], ANAIFS, CBC, FES, GFR, HEPAC, MG, TSHR, FERR, [id number], RF, HIV, ANEU, ADIFF, BMP ####[place] [address] Hep C Ab Int Normal [facility] Comment on above: Result Comment: Nonr eactive: Samples with a value < 0.80 are considered nonreactive (negative) for antibodies to HCV.A negative test result does not exclude the possibility of exposure to or infection with HCV. HCV antibodies may be undetectable in some stages of the infection and in some clinical conditions.See Interp Performed By: #### 0 71518, ANAIFS, CBC, FES, GFR, HEPAC, MG, TSHR, FERR, [id number], RF, HIV, ANEU, ADIFF, BMP ####[place] [address] HIVon 05-21-2024 HIV 1/2 Ab Non-Reactive Normal Non-Reactive [facility] Comment on above: Result Comment: Spec imen is negative for anti-HIV-1 and anti-HIV-2. Performed By: #### 0 [id number], ANAIFS, CBC, FES, GFR, HEPAC, MG, TSHR, FERR, [id number], RF, HIV, ANEU, ADIFF, BMP ####[place] [address] LABORATORYOrdered By: SYSTEM SYSTEM on 05-21-2024 Albumin BCP dye [Mass/Vol] 2.7 G/dL Low 3.2 - 4.8 G/dL AH ADM SS Albumin/Globulin [Mass ratio] 0.7 {ratio} Low 0.9 - 1.6 ratio AH ADM SS ALP [Catalytic activity/Vol] 84 U/L Normal 38 - 126 U/L ADM SS ALT No additional P-5'-P [Catalytic activity/Vol] 25 U/L Normal 10 - 49 U/L ADM SS AST [Catalytic activity/Vol] 21 U/L Normal 8 - 34 U/L ADM SS Bilirubin [Mass/Vol] 0.30 mg/dL Normal 0.20 - 1.20 mg/dL ADM SS Comment on above: Interpretive Data: U se of this assay is not recommended for patients undergoing treatment with eltrombopag due to the potential for falsely elevated results. Globulin 3.9 G/dL High 1.5 - 3.8 G/dL AH ADM SS Lactate [Moles/Vol] 0.6 mmol/L Normal 0.5 - 2. 2 mmol/L ADM SS Protein [Mass/Vol] 6.6 G/dL Normal 5.7 - 8.2 G/dL ADM SS Iron [Mass/Vol] 78 ug/dL Normal 50 - 170 mcg/dL ADM SS Iron binding capacity [Mass/Vol] 341 mcg/dL Normal 250 - 500 mcg/dL ADM SS Iron saturation [Mass fraction] 23 % Invalid Interpretation Code ADM SS Ferritin [Mass/Vol] 97.0 ng/mL Normal 8.0 - 25 2.0 ng/mL ADM SS TSH Qn 4.296 mIU/mL Normal 0.550 - 4.780 mIU/mL ADM SS LABORATORYOrdered By: [employer] CONTRIBUTOR_SYSTEM on 05-21-2024 Anti-Scl-70 Abs (LC) 0.2 AI Invalid Interpretation Code 0.0-0.9 Sendouts Comment on above: Result Comment: Perf ormed At: [facility] [id number] Kesha Darden PhD Ph:[phone] Sjogrens SSA Ab (LC) AI Invalid Interpretation Code 0.0-0.9 AH Sendouts SS Sjogrens SSB Ab (LC) AI Invalid Interpretation Code 0.0-0.9 Sendouts Comment on above: Result Comment: Perf ormed At: [address] [id number] Kesha Darden PhD Ph:[phone] LABORATORYOrdered By: DEE CHAVEZ CONTRIBUTOR_SYSTEM on 05-21-2024 Antinuclear Ab Screen Negative Invalid Interpretation Code Negative Sendouts Comment on above: Result Comment: Anti -nuclear antibody test is used as an aid in diagnosis of systemic autoimmune diseases. Where positive and clinically warranted, follow-up using disease-specific testing is recommended. Low positive titers are not uncommon with advanced age, certain chronic infections, and malignancies among others. Test methodology: Indirect fluorescence immunoassay (IFA) using HEp-2 cells. Performed By: [facility] [address] [place] [address] Marketing Research Coordinator: Bin Montes III, M.D. CLIA#: [id number] LABORATORYOrdered By: Sim Barclay on 05-21-2024 HAV IgM IA Ql Non-Reactive (3/14/25 5:37 AM) Normal Non-Reactive AH ADM SS HAV IgM IA Ql No serological evidence of a current Hepatitis A infection. Normal AH Chemistry S HBV core IgM IA Ql Non-Reactive (05/21/24 5:37 AM) Normal Non-Reactive AH ADM SS HBV core IgM IA Ql Samples with a value < 0.80 Index are considered nonreactive (negative) for IgM antibodies to hepatitis B core antigen. Normal AH Chemistry S HBV surface Ag IA Ql Non-Reactive (05/21/24 5:37 AM) Normal Non-Reactive AH ADM SS HCV Ab IA Ql Non-Reactive (05/21/24 5:37 AM) Normal Non-Reactive AH ADM SS HCV Ab IA Ql Nonreactive: Samples with a value < 0.80 are considered nonreactive (negative) for antibodies to HCV. A negative test result does not exclude the possibility of exposure to or infection with HCV. HCV antibodies may be undetectable in some stages of the infection and in some clinical conditions. Normal AH Chemistry S HIV 1+2 Ab IA Ql Non-Reactive (05/21/24 5:37 AM) Normal Non-Reactive AH ADM SS HIV 1+2 Ab IA Ql Negative Invalid Interpretation Code AH Chemistry S LABORATORYOrdered By: Mando Sanchez on 05-21-2024 Rheumatoid factor IgM IA Qn (S) 1 Normal <=5.9 AH Auto Viro/Sero SS Comment on above: Interpretive Data: R F IgM Antibody by Enzyme Immunoassay: Negative < or = 6 Positive > 6 A positive result indicates the presence of RF antibodies and suggests the possibility of rheumatoid arthritis. A negative result indicates no RF IgM antibody or levels below the negative cut-off of the assay. Results of this assay should be used in conjunction with clinical findings and other serological tests. These results were obtained with the [employer] QUANTA Lite RF IgM GAETANO. RF IgM values obtained with different manufacturers' assay methods may not be used interchangeably. The magnitude of the reported IgM levels cannot be correlated to an endpoint titer. LACon 05-21-2024 Lactic Acid Lvl 0.6 mmol/L Normal 0.5-2.2 [facility] Comment on above: Performed By: #### C MP, VBGC, LAC, GFR ####[place] [address] MGon 05-21-2024 Magnesium [Mass/Vol] 2.4 mg/dL Normal 1.6-2.4 [facility] Comment on above: Performed By: #### 0 [id number], ANAIFS, CBC, FES, GFR, HEPAC, MG, TSHR, FERR, [id number], RF, HIV, ANEU, ADIFF, BMP ####[place] [address] TSHRon 05-21-2024 TSH 4.296 mIU/mL Normal 0.550-4.780 [facility] Comment on above: Performed By: #### 0 [address], ANAIFS, CBC, FES, GFR, HEPAC, MG, TSHR, FERR, [id number], RF, HIV, ANEU, ADIFF, BMP ####[place] [address] VBG-Con 05-21-2024 BE Venous 17.7 mmol/L High -3.0-3.0 [facility] Comment on above: Order Comment: Draw via central line using ABG Syringe ONLY Performed By: #### C MP, VBGC, LAC, GFR ####[place] [address] CO2 [Moles/Vol] 51.4 mmol/L Critically abnormal 22.0-32.0 [facility] Comment on above: Order Comment: Draw via central line using ABG Syringe ONLY Performed By: #### C MP, VBGC, LAC, GFR ####[place] [address] HCO3 (Bld) [Moles/Vol] 48.4 mmol/L High 21.0-30.0 [facility] Comment on above: Order Comment: Draw via central line using ABG Syringe ONLY Performed By: #### C MP, VBGC, LAC, GFR ####[place] [address] Oxygen saturation in Blood 72.9 % Normal 70.0-75.0 [facility] Comment on above: Order Comment: Draw via central line using ABG Syringe ONLY Performed By: #### C MP, VBGC, LAC, GFR ####[place] [address] pCO2 Satish 100.1 mmHg High 41.0-51.0 [facility] Comment on above: Order Comment: Draw via central line using ABG Syringe ONLY Performed By: #### C MP, VBGC, LAC, GFR ####[place] [address] pH Venous 7.302 Low 7.380-7.460 [facility] Comment on above: Order Comment: Draw via central line using ABG Syringe ONLY Performed By: #### C MP, VBGC, LAC, GFR ####[place] [address] pO2 Satish 42.6 mmHg High 35.0-40.0 [facility] Comment on above: Order Comment: Draw via central line using ABG Syringe ONLY Performed By: #### C MP, VBGC, LAC, GFR ####[place] [address] .Auto Diffon 05-20-2024 Basophil, Absolute 0.0 10 3/mcL Normal 0.0-0.3 [facility] Comment on above: Performed By: #### A DIFF, ANEU, MG, BMP, CBC, GFR ####[place] [address] Basophils/100 WBC (Bld) 0.4 % Normal 0.0-2.5 [facility] Comment on above: Performed By: #### A DIFF, ANEU, MG, BMP, CBC, GFR ####[place] [address] Eosinophil, Absolute 0.5 10 3/mcL Normal 0.0-0.7 [facility] Comment on above: Performed By: #### A DIFF, ANEU, MG, BMP, CBC, GFR ####[place] [address] Eosinophils/100 WBC (Bld) 5.4 % Normal 0.0-6.0 [facility] Comment on above: Performed By: #### A DIFF, ANEU, MG, BMP, CBC, GFR ####[place] [address] Lymphocyte, Absolute 1.5 10 3/mcL Normal 0.9-4.3 [facility] Comment on above: Performed By: #### A DIFF, ANEU, MG, BMP, CBC, GFR ####[address] [address] Lymphocytes/100 WBC (Bld) 14.6 % Low 20.0-40.0 [facility] Comment on above: Performed By: #### A DIFF, ANEU, MG, BMP, CBC, GFR ####[address] [address] Monocyte, Absolute 0.9 10 3/mcL Normal 0.1-1.4 [facility] Comment on above: Performed By: #### A DIFF, ANEU, MG, BMP, CBC, GFR ####[address] [address] Monocytes/100 WBC (Bld) 8.7 % Normal 2.0-13.0 [facility] Comment on above: Performed By: #### A DIFF, ANEU, MG, BMP, CBC, GFR ####[address] [address] Neutrophils/100 WBC (Bld) 70.9 % Normal 50.0-75.0 [facility] Comment on above: Performed By: #### A DIFF, ANEU, MG, BMP, CBC, GFR ####[address] [address] .GFRon 05-20-2024 Estimated Glomerular Filtration Rate 117 ml/min/1.73sqm Normal [facility] Comment on above: Result Comment: Stag es of Chronic Kidney Disease (CKD)Stage Description eGFR(ml/min/1.73 sq.m.)CKD 1 Normal kidney function or >=90 normal kindney function with possible kidney damage (ex. Proteinuria)CKD 2 Kidney damage with mild loss 60-89 of kidney functionCKD 3a Mild to moderate loss of kidney 45-59 functionCKD 3b Moderate to severe loss of 30-44 of kindey function CKD 4 Severe loss of kidney function 15-29CKD 5 Kidney failure <15Note: (go live 2024) the eGFR calculation was updated to the KD-EPI creatinine equation without a race factor to calculate theeGFR results. Performed By: #### V BGC, MG, GFR, CMP ####[place] [address] Estimated Glomerular Filtration Rate 114 ml/min/1.73sqm Normal [facility] Comment on above: Result Comment: Stag es of Chronic Kidney Disease (CKD)Stage Description eGFR(ml/min/1.73 sq.m.)CKD 1 Normal kidney function or >=90 normal kindney function with possible kidney damage (ex. Proteinuria)CKD 2 Kidney damage with mild loss 60-89 of kidney functionCKD 3a Mild to moderate loss of kidney 45-59 functionCKD 3b Moderate to severe loss of 30-44 of kindey function CKD 4 Severe loss of kidney function 15-29CKD 5 Kidney failure <15Note: (go live 2024) the eGFR calculation was updated to the KD-EPI creatinine equation without a race factor to calculate theeGFR results. Performed By: #### A DIFF, ANEU, MG, BMP, CBC, GFR ####[place] [address] .NEUABSon 05-20-2024 Neutrophil, Absolute 7.1 10 3/mcL Normal 2.3-8.1 [facility] Comment on above: Performed By: #### A DIFF, ANEU, MG, BMP, CBC, GFR ####[place] [address] BMPon 05-20-2024 BUN/Creatinine Ratio 37.5 ratio High 10.0-22.0 [facility] Comment on above: Order Comment: vrb- called critical CO2 to RN Marcelina Mineral 05/20/2024 05:18:24 EDT SAS Performed By: #### A DIFF, ANEU, MG, BMP, CBC, GFR ####[place] [address] Calcium [Mass/Vol] 8.3 mg/dL Low 8.7-10.4 [facility] Comment on above: Order Comment: vrb- called critical CO2 to RN Marcelina Mineral 05/20/2024 05:18:24 EDT SAS Performed By: #### A DIFF, ANEU, MG, BMP, CBC, GFR ####[address] [address] Chloride [Moles/Vol] 98 mmol/L Normal 98-110 [facility] Comment on above: Order Comment: vrb- called critical CO2 to RN Marcelina Mineral 05/20/2024 05:18:24 EDT SAS Performed By: #### A DIFF, ANEU, MG, BMP, CBC, GFR ####[address] [address] Creatinine [Mass/Vol] 0.64 mg/dL Normal 0.50-1.20 [facility] Comment on above: Order Comment: vrb- called critical CO2 to RN Marcelina Mineral 05/20/2024 05:18:24 EDT SAS Result Comment: Test ing performed on PlaceBlogger analyzer using enzymatic creatinine methodology. Performed By: #### A DIFF, ANEU, MG, BMP, CBC, GFR ####[address] [address] Glucose [Mass/Vol] 131 mg/dL High 70-110 [facility] Comment on above: Order Comment: vrb- called critical CO2 to RN Marcelina Mineral 05/20/2024 05:18:24 EDT SAS Performed By: #### A DIFF, ANEU, MG, BMP, CBC, GFR ####[address] [address] Potassium [Moles/Vol] 3.9 mmol/L Normal 3.5-5.0 [facility] Comment on above: Order Comment: vrb- called critical CO2 to RN Marcelina Mineral 05/20/2024 05:18:24 EDT SAS Performed By: #### A DIFF, ANEU, MG, BMP, CBC, GFR ####[address] [address] Sodium [Moles/Vol] 147 mmol/L High 136-145 [facility] Comment on above: Order Comment: vrb- called critical CO2 to RN Marcelina Mineral 05/20/2024 05:18:24 EDT SAS Performed By: #### A DIFF, ANEU, MG, BMP, CBC, GFR ####[address] [address] Urea nitrogen [Mass/Vol] 24.0 mg/dL High 8.0-22.0 [facility] Comment on above: Order Comment: vrb- called critical CO2 to RN Marcelina Gonzalezn 05/20/2024 05:18:24 EDT SAS Performed By: #### A DIFF, ANEU, MG, BMP, CBC, GFR ####[address] [address] CO2 [Moles/Vol] mmol/L Critically abnormal 22-32 [facility] Comment on above: Order Comment: vrb- called critical CO2 to RN Marcelina Gonzalezn 05/20/2024 05:18:24 EDT SAS Performed By: #### A DIFF, ANEU, MG, BMP, CBC, GFR ####[place] [address] Electrolyte Balance See Comment Normal 4.0-15.0 [facility] Comment on above: Order Comment: vrb- called critical CO2 to RN Marcelina Gonzalezn 05/20/2024 05:18:24 EDT SAS Result Comment: Unab le to calculate this test result accurately. Results used to calculate this test are outside the reportable range. Performed By: #### A DIFF, ANEU, MG, BMP, CBC, GFR ####[place] [address] CBCon 05-20-2024 Erythrocyte distribution width (RBC) [Ratio] 14.6 % Normal 11.5-15.5 [facility] Comment on above: Performed By: #### A DIFF, ANEU, MG, BMP, CBC, GFR ####[place] [address] Hematocrit (Bld) [Volume fraction] 29.8 % Low 34.0-46.0 [facility] Comment on above: Performed By: #### A DIFF, ANEU, MG, BMP, CBC, GFR ####[address] [address] Hgb 9.8 G/dL Low 12.0-16.0 [facility] Comment on above: Performed By: #### A DIFF, ANEU, MG, BMP, CBC, GFR ####[place] [address] MCH (RBC) [Entitic mass] 32.7 pg Normal 27.0-33.0 [facility] Comment on above: Performed By: #### A DIFF, ANEU, MG, BMP, CBC, GFR ####[place] [address] MCHC 32.8 G/dL Normal 32.0-36.0 [facility] Comment on above: Performed By: #### A DIFF, ANEU, MG, BMP, CBC, GFR ####[place] [address] MCV (RBC) [Entitic vol] 99.8 fL High 80.0-99.0 [facility] Comment on above: Performed By: #### A DIFF, ANEU, MG, BMP, CBC, GFR ####[place] [address] Platelet 192 10 3/mcL Normal 150-450 [facility] Comment on above: Performed By: #### A DIFF, ANEU, MG, BMP, CBC, GFR ####[place] [address] Platelet mean volume (Bld) [Entitic vol] 8.7 fL Normal 6.6-10.5 [facility] Comment on above: Performed By: #### A DIFF, ANEU, MG, BMP, CBC, GFR ####[place] [address] RBC 2.98 10 6/mcL Low 4.10-5.30 [facility] Comment on above: Performed By: #### A DIFF, ANEU, MG, BMP, CBC, GFR ####[place] [address] WBC 10.1 10 3/mcL Normal 4.5-10.8 [facility] Comment on above: Performed By: #### A DIFF, ANEU, MG, BMP, CBC, GFR ####[place] [address] CMPon 05-20-2024 CO2 [Moles/Vol] mmol/L Critically abnormal [facility] Comment on above: Performed By: #### V BGC, MG, GFR, CMP ####[place] [address] Electrolyte Balance Unable to Calculate Normal 4.0-15. 0 [facility] Comment on above: Result Comment: Unab le to calculate this test result accurately. Results used to calculate this test are outside the reportable range. Performed By: #### V BGC, MG, GFR, CMP ####[place] [address] Albumin Level 2.8 G/dL Low 3.2-4.8 [facility] Comment on above: Performed By: #### V BGC, MG, GFR, CMP ####[place] [address] Albumin/Globulin [Mass ratio] 0.6 {ratio} Low 0.9-1.6 [facility] Comment on above: Performed By: #### V BGC, MG, GFR, CMP ####[place] [address] ALP [Catalytic activity/Vol] 93 U/L Normal 38-126 [facility] Comment on above: Performed By: #### V BGC, MG, GFR, CMP ####[place] [address] ALT [Catalytic activity/Vol] 26 U/L Normal 10-49 [facility] Comment on above: Performed By: #### V BGC, MG, GFR, CMP ####[place] [address] AST [Catalytic activity/Vol] 17 U/L Normal 8-34 [facility] Comment on above: Performed By: #### V BGC, MG, GFR, CMP ####[place] [address] Bili Total 0.40 mg/dL Normal 0.20-1.20 [facility] Comment on above: Result Comment: Use of this assay is not recommended for patients undergoing treatment with eltrombopag due to the potential for falsely elevated results. Performed By: #### V BGC, MG, GFR, CMP ####[place] [address] BUN/Creatinine Ratio 39.7 ratio High 10.0-22.0 [facility] Comment on above: Performed By: #### V BGC, MG, GFR, CMP ####[address] [address] Calcium [Mass/Vol] 9.0 mg/dL Normal 8.7-10.4 [facility] Comment on above: Performed By: #### V BGC, MG, GFR, CMP ####[address] [address] Chloride [Moles/Vol] 93 mmol/L Low 98-110 [facility] Comment on above: Performed By: #### V BGC, MG, GFR, CMP ####[address] [address] Creatinine [Mass/Vol] 0.58 mg/dL Normal 0.50-1.20 [facility] Comment on above: Result Comment: Test ing performed on PlaceBlogger analyzer using enzymatic creatinine methodology. Performed By: #### V BGC, MG, GFR, CMP ####[address] [address] Globulin 4.4 G/dL High 1.5-3.8 [facility] Comment on above: Performed By: #### V BGC, MG, GFR, CMP ####[address] [address] Glucose [Mass/Vol] 101 mg/dL Normal 70-110 [facility] Comment on above: Performed By: #### V BGC, MG, GFR, CMP ####[address] [address] Potassium [Moles/Vol] 4.2 mmol/L Normal 3.5-5.0 [facility] Comment on above: Performed By: #### V BGC, MG, GFR, CMP ####[address] [address] Sodium [Moles/Vol] 142 mmol/L Normal 136-145 [facility] Comment on above: Performed By: #### V BGC, MG, GFR, CMP ####[place] [address] Total Protein 7.2 G/dL Normal 5.7-8.2 [facility] Comment on above: Performed By: #### V BGC, MG, GFR, CMP ####[place] [address] Urea nitrogen [Mass/Vol] 23.0 mg/dL High 8.0-22.0 [facility] Comment on above: Performed By: #### V BGC, MG, GFR, CMP ####[place] [address] CT ANGIOGRAPHY CHEST W/CONTR Leonel 05-20-2024 CT ANGIOGRAPHY CHEST W/CONTRAST Normal [facility] LABORATORYOrdered By: SYSTEM SYSTEM on 05-20-2024 Albumin BCP dye [Mass/Vol] 2.8 G/dL Low 3.2 - 4.8 G/dL AH ADM SS Albumin/Globulin [Mass ratio] 0.6 {ratio} Low 0.9 - 1.6 ratio AH ADM SS ALP [Catalytic activity/Vol] 93 U/L Normal 38 - 126 U/L ADM SS ALT No additional P-5'-P [Catalytic activity/Vol] 26 U/L Normal 10 - 49 U/L AH ADM SS AST [Catalytic activity/Vol] 17 U/L Normal 8 - 34 U/L ADM SS Bilirubin [Mass/Vol] 0.40 mg/dL Normal 0.20 - 1.20 mg/dL AH ADM SS Comment on above: Interpretive Data: U se of this assay is not recommended for patients undergoing treatment with eltrombopag due to the potential for falsely elevated results. Globulin 4.4 G/dL High 1.5 - 3.8 G/dL AH ADM SS Protein [Mass/Vol] 7.2 G/dL Normal 5.7 - 8.2 G/dL ADM SS MGon 05-20-2024 Magnesium [Mass/Vol] 2.2 mg/dL Normal 1.6-2.4 [facility] Comment on above: Performed By: #### V BGC, MG, GFR, CMP ####[place] [address] Magnesium [Mass/Vol] 2.1 mg/dL Normal 1.6-2.4 [facility] Comment on above: Performed By: #### A DIFF, ANEU, MG, BMP, CBC, GFR ####[place] [address] VBG-Con 05-20-2024 BE Venous 19.3 mmol/L High -3.0-3.0 [facility] Comment on above: Order Comment: Draw via central line using ABG Syringe ONLY Performed By: #### V BGC, MG, GFR, CMP ####[place] [address] CO2 [Moles/Vol] 53.1 mmol/L Critically abnormal 22.0-32.0 [facility] Comment on above: Order Comment: Draw via central line using ABG Syringe ONLY Performed By: #### V BGC, MG, GFR, CMP ####[place] [address] HCO3 (Bld) [Moles/Vol] 50.0 mmol/L High 21.0-30.0 [facility] Comment on above: Order Comment: Draw via central line using ABG Syringe ONLY Performed By: #### V BGC, MG, GFR, CMP ####[place] [address] Oxygen saturation in Blood 70.4 % Normal 70.0-75.0 [facility] Comment on above: Order Comment: Draw via central line using ABG Syringe ONLY Performed By: #### V BGC, MG, GFR, CMP ####[place] [address] pCO2 Satish 98.9 mmHg High 41.0-51.0 [facility] Comment on above: Order Comment: Draw via central line using ABG Syringe ONLY Performed By: #### V BGC, MG, GFR, CMP ####[place] [address] pH Venous 7.322 Low 7.380-7.460 [facility] Comment on above: Order Comment: Draw via central line using ABG Syringe ONLY Performed By: #### V BGC, MG, GFR, CMP ####[place] [address] pO2 Satish 40.4 mmHg High 35.0-40.0 [facility] Comment on above: Order Comment: Draw via central line using ABG Syringe ONLY Performed By: #### V BGC, MG, GFR, CMP ####[address] [address] .Auto Diffon 05-19-2024 Basophil, Absolute 0.0 10 3/mcL Normal 0.0-0.3 [facility] Comment on above: Performed By: #### C BC, ANEU, GFR, MG, BMP, ADIFF ####[address] [address] Basophils/100 WBC (Bld) 0.2 % Normal 0.0-2.5 [facility] Comment on above: Performed By: #### C BC, ANEU, GFR, MG, BMP, ADIFF ####[address] [address] Eosinophil, Absolute 0.6 10 3/mcL Normal 0.0-0.7 [facility] Comment on above: Performed By: #### C BC, ANEU, GFR, MG, BMP, ADIFF ####[address] [address] Eosinophils/100 WBC (Bld) 5.1 % Normal 0.0-6.0 [facility] Comment on above: Performed By: #### C BC, ANEU, GFR, MG, BMP, ADIFF ####[address] [address] Lymphocyte, Absolute 1.1 10 3/mcL Normal 0.9-4.3 [facility] Comment on above: Performed By: #### C BC, ANEU, GFR, MG, BMP, ADIFF ####[address] [address] Lymphocytes/100 WBC (Bld) 8.9 % Low 20.0-40.0 [facility] Comment on above: Performed By: #### C BC, ANEU, GFR, MG, BMP, ADIFF ####[address] [address] Monocyte, Absolute 1.0 10 3/mcL Normal 0.1-1.4 [facility] Comment on above: Performed By: #### C BC, ANEU, GFR, MG, BMP, ADIFF ####[address] [address] Monocytes/100 WBC (Bld) 7.7 % Normal 2.0-13.0 [facility] Comment on above: Performed By: #### C BC, ANEU, GFR, MG, BMP, ADIFF ####[address] [address] Neutrophils/100 WBC (Bld) 78.1 % High 50.0-75.0 [facility] Comment on above: Performed By: #### C BC, ANEU, GFR, MG, BMP, ADIFF ####[place] [id number] .GFRon 05-19-2024 Estimated Glomerular Filtration Rate 117 ml/min/1.73sqm Normal [facility] Comment on above: Result Comment: Stag es of Chronic Kidney Disease (CKD)Stage Description eGFR(ml/min/1.73 sq.m.)CKD 1 Normal kidney function or >=90 normal kindney function with possible kidney damage (ex. Proteinuria)CKD 2 Kidney damage with mild loss 60-89 of kidney functionCKD 3a Mild to moderate loss of kidney 45-59 functionCKD 3b Moderate to severe loss of 30-44 of kindey function CKD 4 Severe loss of kidney function 15-29CKD 5 Kidney failure <15Note: (go live 2024) the eGFR calculation was updated to the KD-EPI creatinine equation without a race factor to calculate theeGFR results. Performed By: #### C BC, ANEU, GFR, MG, BMP, ADIFF ####[address] [address] .NEUABSon 05-19-2024 Neutrophil, Absolute 9.8 10 3/mcL High 2.3-8.1 [facility] Comment on above: Performed By: #### C BC, ANEU, GFR, MG, BMP, ADIFF ####[address] [address] BMPon 05-19-2024 CO2 [Moles/Vol] mmol/L Critically abnormal 22-32 [facility] Comment on above: Performed By: #### C BC, ANEU, GFR, MG, BMP, ADIFF ####[address] [address] Electrolyte Balance Unable to Calculate Normal 4.0-15. 0 [facility] Comment on above: Result Comment: Unab le to calculate this test result accurately. Results used to calculate this test are outside the reportable range. Performed By: #### C BC, ANEU, GFR, MG, BMP, ADIFF ####[address] [address] BUN/Creatinine Ratio 39.7 ratio High 10.0-22.0 [facility] Comment on above: Performed By: #### C BC, ANEU, GFR, MG, BMP, ADIFF ####[address] [address] Creatinine [Mass/Vol] 0.58 mg/dL Normal 0.50-1.20 [facility] Comment on above: Result Comment: Test ing performed on Place[employer]logger analyzer using enzymatic creatinine methodology. Performed By: #### C BC, ANEU, GFR, MG, BMP, ADIFF ####[address] [address] Calcium [Mass/Vol] 8.6 mg/dL Low 8.7-10.4 [facility] Comment on above: Performed By: #### C BC, ANEU, GFR, MG, BMP, ADIFF ####[address] [id number] Chloride [Moles/Vol] 95 mmol/L Low 98-110 [facility] Comment on above: Performed By: #### C BC, ANEU, GFR, MG, BMP, ADIFF ####[address] [address] Glucose [Mass/Vol] 107 mg/dL Normal 70-110 [facility] Comment on above: Performed By: #### C BC, ANEU, GFR, MG, BMP, ADIFF ####[address] [address] Potassium [Moles/Vol] 3.7 mmol/L Normal 3.5-5.0 [facility] Comment on above: Performed By: #### C BC, ANEU, GFR, MG, BMP, ADIFF ####[place] [address] Sodium [Moles/Vol] 145 mmol/L Normal 136-145 [facility] Comment on above: Performed By: #### C BC, ANEU, GFR, MG, BMP, ADIFF ####[place] [address] Urea nitrogen [Mass/Vol] 23.0 mg/dL High 8.0-22.0 [facility] Comment on above: Performed By: #### C BC, ANEU, GFR, MG, BMP, ADIFF ####[place] [address] CBCon 05-19-2024 Erythrocyte distribution width (RBC) [Ratio] 15.4 % Normal 11.5-15.5 [facility] Comment on above: Performed By: #### C BC, ANEU, GFR, MG, BMP, ADIFF ####[place] [address] Hematocrit (Bld) [Volume fraction] 31.9 % Low 34.0-46.0 [facility] Comment on above: Performed By: #### C BC, ANEU, GFR, MG, BMP, ADIFF ####[place] [address] Hgb 10.2 G/dL Low 12.0-16.0 [facility] Comment on above: Performed By: #### C BC, ANEU, GFR, MG, BMP, ADIFF ####[place] [address] MCH (RBC) [Entitic mass] 31.8 pg Normal 27.0-33.0 [facility] Comment on above: Performed By: #### C BC, ANEU, GFR, MG, BMP, ADIFF ####[place] [address] MCHC 31.8 G/dL Low 32.0-36.0 [facility] Comment on above: Performed By: #### C BC, ANEU, GFR, MG, BMP, ADIFF ####[place] [address] MCV (RBC) [Entitic vol] 100.1 fL High 80.0-99.0 [facility] Comment on above: Performed By: #### C BC, ANEU, GFR, MG, BMP, ADIFF ####[place] [address] Platelet 214 10 3/mcL Normal 150-450 [facility] Comment on above: Performed By: #### C BC, ANEU, GFR, MG, BMP, ADIFF ####[place] [address] Platelet mean volume (Bld) [Entitic vol] 8.7 fL Normal 6.6-10.5 [facility] Comment on above: Performed By: #### C BC, ANEU, GFR, MG, BMP, ADIFF ####[place] [address] RBC 3.19 10 6/mcL Low 4.10-5.30 [facility] Comment on above: Performed By: #### C BC, ANEU, GFR, MG, BMP, ADIFF ####[place] [address] WBC 12.6 10 3/mcL High 4.5-10.8 [facility] Comment on above: Performed By: #### C BC, ANEU, GFR, MG, BMP, ADIFF ####[place] [address] MGon 05-19-2024 Magnesium [Mass/Vol] 1.8 mg/dL Normal 1.6-2.4 [facility] Comment on above: Performed By: #### C BC, ANEU, GFR, MG, BMP, ADIFF ####[place] [address] XR CHEST 1 VIEWon 05-19-2024 XR CHEST [address] [facility] .Auto Diffon 05-18-2024 Basophil, Absolute 0.0 10 3/mcL Normal 0.0-0.3 [facility] Comment on above: Performed By: #### P BNP, CMP, MG, LAC, GFR, CBC, ADIFF, ANEU ####[address] [address] Basophils/100 WBC (Bld) 0.3 % Normal 0.0-2.5 [facility] Comment on above: Performed By: #### P BNP, CMP, MG, LAC, GFR, CBC, ADIFF, ANEU ####[address] [address] Eosinophil, Absolute 0.7 10 3/mcL Normal 0.0-0.7 [facility] Comment on above: Performed By: #### P BNP, CMP, MG, LAC, GFR, CBC, ADIFF, ANEU ####[address] [address] Eosinophils/100 WBC (Bld) 4.7 % Normal 0.0-6.0 [facility] Comment on above: Performed By: #### P BNP, CMP, MG, LAC, GFR, CBC, ADIFF, ANEU ####[address] [address] Lymphocyte, Absolute 0.9 10 3/mcL Normal 0.9-4.3 [facility] Comment on above: Performed By: #### P BNP, CMP, MG, LAC, GFR, CBC, ADIFF, ANEU ####[address] [address] Lymphocytes/100 WBC (Bld) 6.5 % Low 20.0-40.0 [facility] Comment on above: Performed By: #### P BNP, CMP, MG, LAC, GFR, CBC, ADIFF, ANEU ####[address] [address] Monocyte, Absolute 0.9 10 3/mcL Normal 0.1-1.4 [facility] Comment on above: Performed By: #### P BNP, CMP, MG, LAC, GFR, CBC, ADIFF, ANEU ####[address] [address] Monocytes/100 WBC (Bld) 6.8 % Normal 2.0-13.0 [facility] Comment on above: Performed By: #### P BNP, CMP, MG, LAC, GFR, CBC, ADIFF, ANEU ####[address] [address] Neutrophils/100 WBC (Bld) 81.7 % High 50.0-75.0 [facility] Comment on above: Performed By: #### P BNP, CMP, MG, LAC, GFR, CBC, ADIFF, ANEU ####[address] [address] .GFRon 05-18-2024 GFR/1.73 sq M.predicted among non-blacks MDRD (S/P/Bld) [Vol rate/Area] mL/min/{1.73_m2} Normal [facility] Comment on above: Result Comment: Stag es of Chronic Kidney Disease (CKD)Stage Description eGFR(ml/min/1.73 sq.m.)CKD 1 Normal kidney function or >=90 normal kindney function with possible kidney damage (ex. Proteinuria)CKD 2 Kidney damage with mild loss 60-89 of kidney functionCKD 3a Mild to moderate loss of kidney 45-59 functionCKD 3b Moderate to severe loss of 30-44 of kindey function CKD 4 Severe loss of kidney function 15-29CKD 5 Kidney failure <15Note: (go live 2024) the eGFR calculation was updated to the KD-EPI creatinine equation without a race factor to calculate theeGFR results. Performed By: #### P BNP, CMP, MG, LAC, GFR, CBC, ADIFF, ANEU ####[address] [address] .NEUABSon 05-18-2024 Neutrophil, Absolute 11.3 10 3/mcL High 2.3-8.1 [facility] Comment on above: Performed By: #### P BNP, CMP, MG, LAC, GFR, CBC, ADIFF, ANEU ####[address] [address] BGon 05-18-2024 Base excess Calc (Bld) [Moles/Vol] 17.0 mmol/L [facility] Comment on above: Performed By: #### B G ####[place] [address] CO2 [Moles/Vol] 46.5 mmol/L Critically abnormal 22.0-30.0 [facility] Comment on above: Performed By: #### B G ####[place] [id number] HCO3 (Bld) [Moles/Vol] 44.5 mmol/L High 21.0-29.0 [facility] Comment on above: Performed By: #### B G ####[place] [address] Oxygen (Bld) [Partial pressure] 74.7 mm[Hg] Normal 74.0-108.0 [facility] Comment on above: Performed By: #### B G ####[place] [address] Oxygen saturation in Blood 95.6 % Normal 92.0-96.0 [facility] Comment on above: Performed By: #### B G ####[place] [address] pCO2 68.2 mmHg Critically abnormal 32.0-46.0 [facility] Comment on above: Performed By: #### B G ####[place] [id number] pH (Bld) 7.432 [pH] Normal 7.380-7.460 [facility] Comment on above: Performed By: #### B G ####[place] [address] Base excess Calc (Bld) [Moles/Vol] 13.7 mmol/L Normal [facility] Comment on above: Performed By: #### B G ####[place] [id number] CO2 [Moles/Vol] 47.0 mmol/L Critically abnormal 22.0-30.0 [facility] Comment on above: Performed By: #### B G ####[place] [id number] HCO3 (Bld) [Moles/Vol] 44.2 mmol/L High 21.0-29.0 [facility] Comment on above: Performed By: #### B G ####[address] [address] Oxygen (Bld) [Partial pressure] 162.9 mm[Hg] High 74.0-108.0 [facility] Comment on above: Performed By: #### B G ####[place] [address] Oxygen saturation in Blood 99.4 % High 92.0-96.0 [facility] Comment on above: Performed By: #### B G ####[place] [address] pCO2 93.5 mmHg Critically abnormal 32.0-46.0 [facility] Comment on above: Performed By: #### B G ####[place] [address] pH (Bld) 7.292 [pH] Low 7.380-7.460 [facility] Comment on above: Performed By: #### B G ####[place] [address] CBCon 05-18-2024 Erythrocyte distribution width (RBC) [Ratio] 14.4 % Normal 11.5-15.5 [facility] Comment on above: Performed By: #### P BNP, CMP, MG, LAC, GFR, CBC, ADIFF, ANEU ####[place] [address] Hematocrit (Bld) [Volume fraction] 33.5 % Low 34.0-46.0 [facility] Comment on above: Performed By: #### P BNP, CMP, MG, LAC, GFR, CBC, ADIFF, ANEU ####[place] [address] Hgb 11.1 G/dL Low 12.0-16.0 [facility] Comment on above: Performed By: #### P BNP, CMP, MG, LAC, GFR, CBC, ADIFF, ANEU ####[place] [address] MCH (RBC) [Entitic mass] 32.6 pg Normal 27.0-33.0 [facility] Comment on above: Performed By: #### P BNP, CMP, MG, LAC, GFR, CBC, ADIFF, ANEU ####[place] [address] MCHC 33.2 G/dL Normal 32.0-36.0 [facility] Comment on above: Performed By: #### P BNP, CMP, MG, LAC, GFR, CBC, ADIFF, ANEU ####[place] [address] MCV (RBC) [Entitic vol] 98.3 fL Normal 80.0-99.0 [facility] Comment on above: Performed By: #### P BNP, CMP, MG, LAC, GFR, CBC, ADIFF, ANEU ####[place] [address] Platelet 217 10 3/mcL Normal 150-450 [facility] Comment on above: Performed By: #### P BNP, CMP, MG, LAC, GFR, CBC, ADIFF, ANEU ####[place] [address] Platelet mean volume (Bld) [Entitic vol] 9.1 fL Normal 6.6-10.5 [facility] Comment on above: Performed By: #### P BNP, CMP, MG, LAC, GFR, CBC, ADIFF, ANEU ####[place] [address] RBC 3.41 10 6/mcL Low 4.10-5.30 [facility] Comment on above: Performed By: #### P BNP, CMP, MG, LAC, GFR, CBC, ADIFF, ANEU ####[place] [address] WBC 13.9 10 3/mcL High 4.5-10.8 [facility] Comment on above: Performed By: #### P BNP, CMP, MG, LAC, GFR, CBC, ADIFF, ANEU ####[place] [address] CMPon 05-18-2024 CO2 [Moles/Vol] mmol/L Critically abnormal 22-32 [facility] Comment on above: Performed By: #### P BNP, CMP, MG, LAC, GFR, CBC, ADIFF, ANEU ####[place] [address] Electrolyte Balance Unable to Calculate Normal 4.0-15. 0 [facility] Comment on above: Result Comment: Unab le to calculate this test result accurately. Results used to calculate this test are outside the reportable range. Performed By: #### P BNP, CMP, MG, LAC, GFR, CBC, ADIFF, ANEU ####[place] [address] Albumin Level 2.7 G/dL Low 3.2-4.8 [facility] Comment on above: Performed By: #### P BNP, CMP, MG, LAC, GFR, CBC, ADIFF, ANEU ####[place] [id number] Albumin/Globulin [Mass ratio] 0.6 {ratio} Low 0.9-1.6 [facility] Comment on above: Performed By: #### P BNP, CMP, MG, LAC, GFR, CBC, ADIFF, ANEU ####[place] [address] ALP [Catalytic activity/Vol] 95 U/L Normal 38-126 [facility] Comment on above: Performed By: #### P BNP, CMP, MG, LAC, GFR, CBC, ADIFF, ANEU ####[place] [address] ALT [Catalytic activity/Vol] 32 U/L Normal 10-49 [facility] Comment on above: Performed By: #### P BNP, CMP, MG, LAC, GFR, CBC, ADIFF, ANEU ####[place] [address] AST [Catalytic activity/Vol] 22 U/L Normal 8-34 [facility] Comment on above: Performed By: #### P BNP, CMP, MG, LAC, GFR, CBC, ADIFF, ANEU ####[place] [address] Bili Total 0.30 mg/dL Normal 0.20-1.20 [facility] Comment on above: Result Comment: Use of this assay is not recommended for patients undergoing treatment with eltrombopag due to the potential for falsely elevated results. Performed By: #### P BNP, CMP, MG, LAC, GFR, CBC, ADIFF, ANEU ####[place] [id number] BUN/Creatinine Ratio 52.6 ratio High 10.0-22.0 [facility] Comment on above: Performed By: #### P BNP, CMP, MG, LAC, GFR, CBC, ADIFF, ANEU ####[place] [id number] Calcium [Mass/Vol] 9.4 mg/dL Normal 8.7-10.4 [facility] Comment on above: Performed By: #### P BNP, CMP, MG, LAC, GFR, CBC, ADIFF, ANEU ####[place] [address] Chloride [Moles/Vol] 96 mmol/L Low 98-110 [facility] Comment on above: Performed By: #### P BNP, CMP, MG, LAC, GFR, CBC, ADIFF, ANEU ####[place] [address] Creatinine [Mass/Vol] 0.38 mg/dL Low 0.50-1.20 [facility] Comment on above: Result Comment: Test ing performed on [employer] analyzer using enzymatic creatinine methodology. Performed By: #### P BNP, CMP, MG, LAC, GFR, CBC, ADIFF, ANEU ####[place] [id number] Globulin 4.3 G/dL High 1.5-3.8 [facility] Comment on above: Performed By: #### P BNP, CMP, MG, LAC, GFR, CBC, ADIFF, ANEU ####[place] [id number] Glucose [Mass/Vol] 98 mg/dL Normal 70-110 [facility] Comment on above: Performed By: #### P BNP, CMP, MG, LAC, GFR, CBC, ADIFF, ANEU ####[place] [address] Potassium [Moles/Vol] 3.5 mmol/L Normal 3.5-5.0 [facility] Comment on above: Performed By: #### P BNP, CMP, MG, LAC, GFR, CBC, ADIFF, ANEU ####[place] [address] Sodium [Moles/Vol] 144 mmol/L Normal 136-145 [facility] Comment on above: Performed By: #### P BNP, CMP, MG, LAC, GFR, CBC, ADIFF, ANEU ####[place] [address] Total Protein 7.0 G/dL Normal 5.7-8.2 [facility] Comment on above: Performed By: #### P BNP, CMP, MG, LAC, GFR, CBC, ADIFF, ANEU ####[place] [address] Urea nitrogen [Mass/Vol] 20.0 mg/dL Normal 8.0-22.0 [facility] Comment on above: Performed By: #### P BNP, CMP, MG, LAC, GFR, CBC, ADIFF, ANEU ####[place] [address] LABORATORYOrdered By: SYSTEM SYSTEM on 05-18-2024 Albumin BCP dye [Mass/Vol] 2.7 G/dL Low 3.2 - 4.8 G/dL ADM SS Albumin/Globulin [Mass ratio] 0.6 {ratio} Low 0.9 - 1.6 ratio ADM SS ALP [Catalytic activity/Vol] 95 U/L Normal 38 - 126 U/L ADM SS ALT No additional P-5'-P [Catalytic activity/Vol] 32 U/L Normal 10 - 49 U/L ADM SS AST [Catalytic activity/Vol] 22 U/L Normal 8 - 34 U/L ADM SS Bilirubin [Mass/Vol] 0.30 mg/dL Normal 0.20 - 1.20 mg/dL ADM SS Comment on above: Interpretive Data: U se of this assay is not recommended for patients undergoing treatment with eltrombopag due to the potential for falsely elevated results. Globulin 4.3 G/dL High 1.5 - 3.8 G/dL ADM SS Lactate [Moles/Vol] 0.5 mmol/L Normal 0.5 - 2. 2 mmol/L ADM SS Natriuretic peptide.B prohormone N-Terminal IA [Mass/Vol] 1334 pg/mL High 0 - 450 pg/mL AH ADM SS Protein [Mass/Vol] 7.0 G/dL Normal 5.7 - 8.2 G/dL AH ADM SS LABORATORYOrdered By: Henrietta Marshall on 05-18-2024 CO2 [Moles/Vol] 46.5 mmol/L Invalid Interpretation Code 22.0 - 30.0 mmol/L AH Main Rapid Comm SS HCO3 (Bld) [Moles/Vol] 44.5 mmol/L High 21.0 - 29.0 mmol/L AH Main Rapid Comm SS Oxygen (Bld) [Partial pressure] 74.7 mm[Hg] Normal 74.0 - 108.0 mm Hg AH Main Rapid Comm SS pCO2 68.2 mm[Hg] Invalid Interpretation Code 32.0 - 46.0 mm Hg Main Rapid Comm SS pH (Bld) 7.432 [pH] Normal 7.380 - 7.460 [facility] Rapid Comm SS Sodium [Moles/Vol] 17.0 mmol/L Invalid Interpretation Code Main Rapid Comm SS LABORATORYOrdered By: Samantha Aquino on 05-18-2024 CO2 [Moles/Vol] 47.0 mmol/L Invalid Interpretation Code 22.0 - 30.0 mmol/L AH Main Rapid Comm SS HCO3 (Bld) [Moles/Vol] 44.2 mmol/L High 21.0 - 29.0 mmol/L [facility] SS Oxygen (Bld) [Partial pressure] 162.9 mm[Hg] High 74.0 - 108.0 mm Hg AH Main Rapid Comm SS pCO2 93.5 mm[Hg] Invalid Interpretation Code 32.0 - 46.0 mm Hg Main Rapid Comm SS pH (Bld) 7.292 [pH] Low 7.380 - 7.460 [facility] SS Sodium [Moles/Vol] 13.7 mmol/L Invalid Interpretation Code Main Rapid Comm SS LACon 05-18-2024 Lactic Acid Lvl 0.5 mmol/L Normal 0.5-2.2 [facility] Comment on above: Performed By: #### P BNP, CMP, MG, LAC, GFR, CBC, ADIFF, ANEU ####[address] [address] MGon 05-18-2024 Magnesium [Mass/Vol] 2.0 mg/dL Normal 1.6-2.4 [facility] Comment on above: Performed By: #### P BNP, CMP, MG, LAC, GFR, CBC, ADIFF, ANEU ####[place] [address] PBNPon 05-18-2024 Natriuretic peptide B (Bld) [Mass/Vol] 1334 pg/mL High 0-450 [facility] Comment on above: Performed By: #### P BNP, CMP, MG, LAC, GFR, CBC, ADIFF, ANEU ####[place] [address] VBG-Con 05-18-2024 BE Venous 18.3 mmol/L High -3.0-3.0 [facility] Comment on above: Order Comment: Draw via central line using ABG Syringe ONLY Performed By: #### V BGC ####[place] [address] CO2 [Moles/Vol] 49.3 mmol/L Critically abnormal 22.0-32.0 [facility] Comment on above: Order Comment: Draw via central line using ABG Syringe ONLY Performed By: #### V BGC ####[place] [address] HCO3 (Bld) [Moles/Vol] 46.9 mmol/L High 21.0-30.0 [facility] Comment on above: Order Comment: Draw via central line using ABG Syringe ONLY Performed By: #### V BGC ####[place] [address] Oxygen saturation in Blood 68.6 % Low 70.0-75.0 [facility] Comment on above: Order Comment: Draw via central line using ABG Syringe ONLY Performed By: #### V BGC ####[place] [address] pCO2 Satish 78.7 mmHg High 41.0-51.0 [facility] Comment on above: Order Comment: Draw via central line using ABG Syringe ONLY Performed By: #### V BGC ####[address] [address] pH Venous 7.393 Normal 7.380-7.460 [facility] Comment on above: Order Comment: Draw via central line using ABG Syringe ONLY Performed By: #### V BGC ####[address] [address] pO2 Satish 34.4 mmHg Low 35.0-40.0 [facility] Comment on above: Order Comment: Draw via central line using ABG Syringe ONLY Performed By: #### V [facility] ####[place] [address] XR CHEST 1 VIEWon 05-18-2024 XR CHEST [address] [facility] .Auto Diffon 05-17-2024 Basophil, Absolute 0.1 10 3/mcL Normal 0.0-0.3 [facility] Comment on above: Performed By: #### A DIFF, ANEU, LIPID, CBC, GFR, PBNP, MG, BMP ####[place] [address] Basophils/100 WBC (Bld) 0.3 % Normal 0.0-2.5 [facility] Comment on above: Performed By: #### A DIFF, ANEU, LIPID, CBC, GFR, PBNP, MG, BMP ####[place] [address] Eosinophil, Absolute 0.8 10 3/mcL High 0.0-0.7 [facility] Comment on above: Performed By: #### A DIFF, ANEU, LIPID, CBC, GFR, PBNP, MG, BMP ####[address] [address] Eosinophils/100 WBC (Bld) 4.7 % Normal 0.0-6.0 [facility] Comment on above: Performed By: #### A DIFF, ANEU, LIPID, CBC, GFR, PBNP, MG, BMP ####[address] [address] Lymphocyte, Absolute 1.5 10 3/mcL Normal 0.9-4.3 [facility] Comment on above: Performed By: #### A DIFF, ANEU, LIPID, CBC, GFR, PBNP, MG, BMP ####[address] [address] Lymphocytes/100 WBC (Bld) 9.2 % Low 20.0-40.0 [facility] Comment on above: Performed By: #### A DIFF, ANEU, LIPID, CBC, GFR, PBNP, MG, BMP ####[address] [address] Monocyte, Absolute 1.2 10 3/mcL Normal 0.1-1.4 [facility] Comment on above: Performed By: #### A DIFF, ANEU, LIPID, CBC, GFR, PBNP, MG, BMP ####[address] [address] Monocytes/100 WBC (Bld) 7.5 % Normal 2.0-13.0 [facility] Comment on above: Performed By: #### A DIFF, ANEU, LIPID, CBC, GFR, PBNP, MG, BMP ####[address] [address] Neutrophils/100 WBC (Bld) 78.3 % High 50.0-75.0 [facility] Comment on above: Performed By: #### A DIFF, ANEU, LIPID, CBC, GFR, PBNP, MG, BMP ####[address] [address] .GFRon 05-17-2024 Estimated Glomerular Filtration Rate 113 ml/min/1.73sqm Normal [facility] Comment on above: Result Comment: Stag es of Chronic Kidney Disease (CKD)Stage Description eGFR(ml/min/1.73 sq.m.)CKD 1 Normal kidney function or >=90 normal kindney function with possible kidney damage (ex. Proteinuria)CKD 2 Kidney damage with mild loss 60-89 of kidney functionCKD 3a Mild to moderate loss of kidney 45-59 functionCKD 3b Moderate to severe loss of 30-44 of kindey function CKD 4 Severe loss of kidney function 15-29CKD 5 Kidney failure <15Note: (go live 2024) the eGFR calculation was updated to the KD-EPI creatinine equation without a race factor to calculate theeGFR results. Performed By: #### G FR, BMP, MG ####[place] [address] Estimated Glomerular Filtration Rate 120 ml/min/1.73sqm [facility] Comment on above: Result Comment: Stag es of Chronic Kidney Disease (CKD)Stage Description eGFR(ml/min/1.73 sq.m.)CKD 1 Normal kidney function or >=90 normal kindney function with possible kidney damage (ex. Proteinuria)CKD 2 Kidney damage with mild loss 60-89 of kidney functionCKD 3a Mild to moderate loss of kidney 45-59 functionCKD 3b Moderate to severe loss of 30-44 of kindey function CKD 4 Severe loss of kidney function 15-29CKD 5 Kidney failure <15Note: (go live 2024) the eGFR calculation was updated to the KD-EPI creatinine equation without a race factor to calculate theeGFR results. Performed By: #### A DIFF, ANEU, LIPID, CBC, GFR, PBNP, MG, BMP ####[place] [address] .NEUABSon 05-17-2024 Neutrophil, Absolute 12.6 10 3/mcL High 2.3-8.1 [facility] Comment on above: Performed By: #### A DIFF, ANEU, LIPID, CBC, GFR, PBNP, MG, BMP ####[place] [address] BGon 05-17-2024 Base excess Calc (Bld) [Moles/Vol] 10.6 mmol/L [facility] Comment on above: Performed By: #### B G ####[place] [address] CO2 [Moles/Vol] 43.7 mmol/L Critically abnormal 22.0-30.0 [facility] Comment on above: Performed By: #### B G ####[place] [address] HCO3 (Bld) [Moles/Vol] 41.0 mmol/L High 21.0-29.0 [facility] Comment on above: Performed By: #### B G ####[place] [id number] Oxygen (Bld) [Partial pressure] 127.6 mm[Hg] High 74.0-108.0 [facility] Comment on above: Performed By: #### B G ####[place] [address] Oxygen saturation in Blood 98.4 % High 92.0-96.0 [facility] Comment on above: Performed By: #### B G ####[address] [address] pCO2 89.0 mmHg Critically abnormal 32.0-46.0 [facility] Comment on above: Performed By: #### B G ####[place] [id number] pH (Bld) 7.281 [pH] Low 7.380-7.460 [facility] Comment on above: Performed By: #### B G ####[place] [id number] Base excess Calc (Bld) [Moles/Vol] 11.1 mmol/L Normal [facility] Comment on above: Performed By: #### B G ####[place] [id number] CO2 [Moles/Vol] 43.7 mmol/L Critically abnormal 22.0-30.0 [facility] Comment on above: Performed By: #### B G ####[place] [id number] HCO3 (Bld) [Moles/Vol] 41.0 mmol/L High 21.0-29.0 [facility] Comment on above: Performed By: #### B G ####[address] [address] Oxygen (Bld) [Partial pressure] 63.4 mm[Hg] Low 74.0-108.0 [facility] Comment on above: Performed By: #### B G ####[place] [address] Oxygen saturation in Blood 91.3 % Low 92.0-96.0 [facility] Comment on above: Performed By: #### B G ####[address] [address] pCO2 86.1 mmHg Critically abnormal 32.0-46.0 [facility] Comment on above: Performed By: #### B G ####[place] [address] pH (Bld) 7.296 [pH] Low 7.380-7.460 [facility] Comment on above: Performed By: #### B G ####[place] [address] BMPon 05-17-2024 BUN/Creatinine Ratio 35.4 ratio High 10.0-22.0 [facility] Comment on above: Performed By: #### G FR BMP, MG ####[place] [address] Calcium [Mass/Vol] 9.5 mg/dL Normal 8.7-10.4 [facility] Comment on above: Performed By: #### Tiera MUHAMMAD BMP, MG ####[place] [address] Chloride [Moles/Vol] 96 mmol/L Low 98-110 [facility] Comment on above: Performed By: #### Tiera MUHAMMAD BMP, MG ####[place] [id number] CO2 [Moles/Vol] 39 mmol/L High 22-32 [facility] Comment on above: Performed By: #### Tiera MUHAMMAD BMP, MG ####[place] [address] Creatinine [Mass/Vol] 0.65 mg/dL Normal 0.50-1.20 [facility] Comment on above: Result Comment: Test ing performed on [employer] analyzer using enzymatic creatinine methodology. Performed By: #### Tiera FR BMP, MG ####[place] [address] Electrolyte Balance 4.0 mEq/L Normal 4.0-15.0 [facility] Comment on above: Performed By: #### Tiera FR BMP, MG ####[address] [address] Glucose [Mass/Vol] 95 mg/dL Normal 70-110 [facility] Comment on above: Performed By: #### G FR, BMP, MG ####[address] [address] Potassium [Moles/Vol] 4.7 mmol/L Normal 3.5-5.0 [facility] Comment on above: Performed By: #### G FR, BMP, MG ####[address] [address] Sodium [Moles/Vol] 139 mmol/L Normal 136-145 [facility] Comment on above: Performed By: #### G FR, BMP, MG ####[address] [address] Urea nitrogen [Mass/Vol] 23.0 mg/dL High 8.0-22.0 [facility] Comment on above: Performed By: #### G FR, BMP, MG ####[address] [address] CO2 [Moles/Vol] mmol/L Critically abnormal 22-32 [facility] Comment on above: Performed By: #### A DIFF, ANEU, LIPID, CBC, GFR, PBNP, MG, BMP ####[address] [address] Electrolyte Balance Unable to Calculate Normal 4.0-15. 0 [facility] Comment on above: Result Comment: Unab le to calculate this test result accurately. Results used to calculate this test are outside the reportable range. Performed By: #### A DIFF, ANEU, LIPID, CBC, GFR, PBNP, MG, BMP ####[address] [address] BUN/Creatinine Ratio 38.5 ratio High 10.0-22.0 [facility] Comment on above: Performed By: #### A DIFF, ANEU, LIPID, CBC, GFR, PBNP, MG, BMP ####[address] [address] Calcium [Mass/Vol] 9.2 mg/dL Normal 8.7-10.4 [facility] Comment on above: Performed By: #### A DIFF, ANEU, LIPID, CBC, GFR, PBNP, MG, BMP ####[address] [address] Chloride [Moles/Vol] 97 mmol/L Low 98-110 [facility] Comment on above: Performed By: #### A DIFF, ANEU, LIPID, CBC, GFR, PBNP, MG, BMP ####[address] [address] Creatinine [Mass/Vol] 0.52 mg/dL Normal 0.50-1.20 [facility] Comment on above: Result Comment: Test ing performed on PlaceBlogger analyzer using enzymatic creatinine methodology. Performed By: #### A DIFF, ANEU, LIPID, CBC, GFR, PBNP, MG, BMP ####[address] [address] Glucose [Mass/Vol] 118 mg/dL High 70-110 [facility] Comment on above: Performed By: #### A DIFF, ANEU, LIPID, CBC, GFR, PBNP, MG, BMP ####[address] [address] Potassium [Moles/Vol] 4.2 mmol/L Normal 3.5-5.0 [facility] Comment on above: Performed By: #### A DIFF, ANEU, LIPID, CBC, GFR, PBNP, MG, BMP ####[address] [address] Sodium [Moles/Vol] 142 mmol/L Normal 136-145 [facility] Comment on above: Performed By: #### A DIFF, ANEU, LIPID, CBC, GFR, PBNP, MG, BMP ####[address] [address] Urea nitrogen [Mass/Vol] 20.0 mg/dL Normal 8.0-22.0 [facility] Comment on above: Performed By: #### A DIFF, ANEU, LIPID, CBC, GFR, PBNP, MG, BMP ####[address] [address] CBCon 05-17-2024 Erythrocyte distribution width (RBC) [Ratio] 15.0 % Normal 11.5-15.5 [facility] Comment on above: Performed By: #### A DIFF, ANEU, LIPID, CBC, GFR, PBNP, MG, BMP ####[place] [address] Hematocrit (Bld) [Volume fraction] 36.0 % Normal 34.0-46.0 [facility] Comment on above: Performed By: #### A DIFF, ANEU, LIPID, CBC, GFR, PBNP, MG, BMP ####[place] [address] Hgb 11.4 G/dL Low 12.0-16.0 [facility] Comment on above: Performed By: #### A DIFF, ANEU, LIPID, CBC, GFR, PBNP, MG, BMP ####[place] [address] MCH (RBC) [Entitic mass] 32.1 pg Normal 27.0-33.0 [facility] Comment on above: Performed By: #### A DIFF, ANEU, LIPID, CBC, GFR, PBNP, MG, BMP ####[place] [address] MCHC 31.7 G/dL Low 32.0-36.0 [facility] Comment on above: Performed By: #### A DIFF, ANEU, LIPID, CBC, GFR, PBNP, MG, BMP ####[place] [address] MCV (RBC) [Entitic vol] 101.1 fL High 80.0-99.0 [facility] Comment on above: Performed By: #### A DIFF, ANEU, LIPID, CBC, GFR, PBNP, MG, BMP ####[place] [address] Platelet 203 10 3/mcL Normal 150-450 [facility] Comment on above: Performed By: #### A DIFF, ANEU, LIPID, CBC, GFR, PBNP, MG, BMP ####[place] [address] Platelet mean volume (Bld) [Entitic vol] 9.4 fL Normal 6.6-10.5 [facility] Comment on above: Performed By: #### A DIFF, ANEU, LIPID, CBC, GFR, PBNP, MG, BMP ####[place] [address] [place] [address] RBC 3.56 10 6/mcL Low 4.10-5.30 [facility] Comment on above: Performed By: #### A DIFF, ANEU, LIPID, CBC, GFR, PBNP, MG, BMP ####[place] [address] WBC 16.1 10 3/mcL High 4.5-10.8 [facility] Comment on above: Performed By: #### A DIFF, ANEU, LIPID, CBC, GFR, PBNP, MG, BMP ####[place] [address] LABORATORYOrdered By: Kirti Laughlin on 05-17-2024 Cholesterol [Mass/Vol] 171 mg/dL Normal 50 - 199 mg/dL Chemistry S Comment on above: Interpretive Data: C holesterol Reference Interval: Less than 200 Desirable 200-239 Borderline high risk 240 and above High risk Cholesterol in HDL [Mass/Vol] 49 mg/dL Normal 40 - 59 mg/dL Chemistry S Cholesterol in LDL [Mass/Vol] 103 mg/dL Normal 0 - 129 mg/dL Chemistry S Triglyceride [Mass/Vol] 93 mg/dL Normal 3 - 149 mg/dL Chemistry S LABORATORYOrdered By: SYSTEM SYSTEM on 05-17-2024 Natriuretic peptide.B prohormone N-Terminal IA [Mass/Vol] 3704 pg/mL High 0 - 450 pg/mL ADM SS LIPIDon 05-17-2024 Cholesterol [Mass/Vol] 171 mg/dL Normal 50-199 [facility] Comment on above: Result Comment: Chol esterol Reference Interval:Less than 200 [id number] Borderline high [id number] and above High risk Performed By: #### A DIFF, ANEU, LIPID, CBC, GFR, PBNP, MG, BMP ####[place] [address] Cholesterol in HDL [Mass/Vol] 49 mg/dL Normal 40-59 [facility] Comment on above: Performed By: #### A DIFF, ANEU, LIPID, CBC, GFR, PBNP, MG, BMP ####[address] [address] Cholesterol in LDL [Mass/Vol] 103 mg/dL Normal 0-129 [facility] Comment on above: Performed By: #### A DIFF, ANEU, LIPID, CBC, GFR, PBNP, MG, BMP ####[address] [address] Triglyceride [Mass/Vol] 93 mg/dL Normal 3-149 [facility] Comment on above: Performed By: #### A DIFF, ANEU, LIPID, CBC, GFR, PBNP, MG, BMP ####[place] [address] MGon 05-17-2024 Magnesium [Mass/Vol] 2.4 mg/dL Normal 1.6-2.4 [facility] Comment on above: Performed By: #### G FR, BMP, MG ####[place] [address] Magnesium [Mass/Vol] 2.4 mg/dL Normal 1.6-2.4 [facility] Comment on above: Performed By: #### A DIFF, ANEU, LIPID, CBC, GFR, PBNP, MG, BMP ####[address] [address] PBNPon 05-17-2024 Natriuretic peptide B (Bld) [Mass/Vol] 3704 pg/mL High 0-450 [facility] Comment on above: Performed By: #### A DIFF, ANEU, LIPID, CBC, GFR, PBNP, MG, BMP ####[address] [address] XR CHEST 2 VIEWSon XR CHEST [address] [facility] .Auto Diffon 05-16-2024 Basophil, Absolute 0.1 10 3/mcL Normal 0.0-0.3 [facility] Comment on above: Performed By: #### C BC, ANEU, HFP, GFR, BMP, MG, ADIFF ####[address] [address] Basophils/100 WBC (Bld) 0.5 % Normal 0.0-2.5 [facility] Comment on above: Performed By: #### C BC, ANEU, HFP, GFR, BMP, MG, ADIFF ####[address] [address] Eosinophil, Absolute 0.6 10 3/mcL Normal 0.0-0.7 [facility] Comment on above: Performed By: #### C BC, ANEU, HFP, GFR, BMP, MG, ADIFF ####[address] [address] Eosinophils/100 WBC (Bld) 5.2 % Normal 0.0-6.0 [facility] Comment on above: Performed By: #### C BC, ANEU, HFP, GFR, BMP, MG, ADIFF ####[address] [address] Lymphocyte, Absolute 1.1 10 3/mcL Normal 0.9-4.3 [facility] Comment on above: Performed By: #### C BC, ANEU, HFP, GFR, BMP, MG, ADIFF ####[address] [address] Lymphocytes/100 WBC (Bld) 9.0 % Low 20.0-40.0 [facility] Comment on above: Performed By: #### C BC, ANEU, HFP, GFR, BMP, MG, ADIFF ####[address] [address] Monocyte, Absolute 1.0 10 3/mcL Normal 0.1-1.4 [facility] Comment on above: Performed By: #### C BC, ANEU, HFP, GFR, BMP, MG, ADIFF ####[address] [address] Monocytes/100 WBC (Bld) 7.9 % Normal 2.0-13.0 [facility] Comment on above: Performed By: #### C BC, ANEU, HFP, GFR, BMP, MG, ADIFF ####[address] [address] Neutrophils/100 WBC (Bld) 77.4 % High 50.0-75.0 [facility] Comment on above: Performed By: #### C BC, ANEU, HFP, GFR, BMP, MG, ADIFF ####[place] [address] .GFRon 05-16-2024 GFR/1.73 sq M.predicted among non-blacks MDRD (S/P/Bld) [Vol rate/Area] mL/min/{1.73_m2} [facility] Comment on above: Result Comment: Stag es of Chronic Kidney Disease (CKD)Stage Description eGFR(ml/min/1.73 sq.m.)CKD 1 Normal kidney function or >=90 normal kindney function with possible kidney damage (ex. Proteinuria)CKD 2 Kidney damage with mild loss 60-89 of kidney functionCKD 3a Mild to moderate loss of kidney 45-59 functionCKD 3b Moderate to severe loss of 30-44 of kindey function CKD 4 Severe loss of kidney function 15-29CKD 5 Kidney failure <15Note: ( live 04/13/2024) the eGFR calculation was updated to the KD-EPI creatinine equation without a race factor to calculate theeGFR results. Performed By: #### M G, BMP, GFR ####[place] [address] Estimated Glomerular Filtration Rate 119 ml/min/1.73sqm [facility] Comment on above: Result Comment: Stag es of Chronic Kidney Disease (CKD)Stage Description eGFR(ml/min/1.73 sq.m.)CKD 1 Normal kidney function or >=90 normal kindney function with possible kidney damage (ex. Proteinuria)CKD 2 Kidney damage with mild loss 60-89 of kidney functionCKD 3a Mild to moderate loss of kidney 45-59 functionCKD 3b Moderate to severe loss of 30-44 of kindey function CKD 4 Severe loss of kidney function 15-29CKD 5 Kidney failure <15Note: ( live 04/13/2024) the eGFR calculation was updated to the KD-EPI creatinine equation without a race factor to calculate theeGFR results. Performed By: #### C BC, ANEU, HFP, GFR, BMP, MG, ADIFF ####[place] [id number] .NEUABSon 05-16-2024 Neutrophil, Absolute 9.3 10 3/mcL High 2.3-8.1 [facility] Comment on above: Performed By: #### C BC, ANEU, HFP, GFR, BMP, MG, ADIFF ####[address] [address] A1Con 05-16-2024 Glucose [Mass/Vol] 105 mg/dL Normal [facility] Comment on above: Order Comment: Add o n lab Result Comment: Roby mated Average Glucose calculated by equation ((28.7xA1C)-46.7)Estimated average glucose (eAG) is a calculated value from Hemoglobin A1C and is merchandiser retail representative of the average blood glucose level in the last 2-3 month period.Normal range: less than 114 mg/dL Performed By: #### A 1C ####[place] [address] HbA1c (Bld) [Mass fraction] 5.3 % Normal 4.0-6.0 [facility] Comment on above: Order Comment: Add o n lab Performed By: #### A 1C ####[place] [address] BMPon 05-16-2024 BUN/Creatinine Ratio 40.0 ratio High 10.0-22.0 [facility] Comment on above: Performed By: #### M G, BMP, GFR ####[address] [address] Calcium [Mass/Vol] 8.8 mg/dL Normal 8.7-10.4 [facility] Comment on above: Performed By: #### M G, BMP, GFR ####[address] [address] Chloride [Moles/Vol] 100 mmol/L Normal 98-110 [facility] Comment on above: Performed By: #### M G, BMP, GFR ####[address] [address] CO2 [Moles/Vol] 37 mmol/L High 22-32 [facility] Comment on above: Performed By: #### M G, BMP, GFR ####[address] [address] Creatinine [Mass/Vol] 0.45 mg/dL Low 0.50-1.20 [facility] Comment on above: Result Comment: Test ing performed on Place[employer]logger analyzer using enzymatic creatinine methodology. Performed By: #### M G, BMP, GFR ####[address] [address] Electrolyte Balance 2.0 mEq/L Low 4.0-15.0 [facility] Comment on above: Performed By: #### M G, BMP, GFR ####[address] [address] Glucose [Mass/Vol] 105 mg/dL Normal 70-110 [facility] Comment on above: Performed By: #### M G, BMP, GFR ####[address] [address] Potassium [Moles/Vol] 5.2 mmol/L High 3.5-5.0 [facility] Comment on above: Result Comment: Spec imen slightly hemolyzed. Performed By: #### M G, BMP, GFR ####[address] [address] Sodium [Moles/Vol] 139 mmol/L Normal 136-145 [facility] Comment on above: Performed By: #### M G, BMP, GFR ####[address] [address] Urea nitrogen [Mass/Vol] 18.0 mg/dL Normal 8.0-22.0 [facility] Comment on above: Performed By: #### M G, BMP, GFR ####[address] [address] CO2 [Moles/Vol] 39 mmol/L High 22-32 [facility] Comment on above: Performed By: #### C BC, ANEU, HFP, GFR, BMP, MG, ADIFF ####[address] [address] Electrolyte Balance 3.0 mEq/L Low 4.0-15.0 [facility] Comment on above: Performed By: #### C BC, ANEU, HFP, GFR, BMP, MG, ADIFF ####[address] [address] BUN/Creatinine Ratio 33.3 ratio High 10.0-22.0 [facility] Comment on above: Performed By: #### C BC, ANEU, HFP, GFR, BMP, MG, ADIFF ####[address] [address] Calcium [Mass/Vol] 8.9 mg/dL Normal 8.7-10.4 [facility] Comment on above: Performed By: #### C BC, ANEU, HFP, GFR, BMP, MG, ADIFF ####[address] [address] Chloride [Moles/Vol] 99 mmol/L Normal 98-110 [facility] Comment on above: Performed By: #### C BC, ANEU, HFP, GFR, BMP, MG, ADIFF ####[place] [id number] Creatinine [Mass/Vol] 0.54 mg/dL Normal 0.50-1.20 [facility] Comment on above: Result Comment: Test ing performed on Place[employer]logger analyzer using enzymatic creatinine methodology. Performed By: #### C BC, ANEU, HFP, GFR, BMP, MG, ADIFF ####[address] [address] Glucose [Mass/Vol] 93 mg/dL Normal 70-110 [facility] Comment on above: Performed By: #### C BC, ANEU, HFP, GFR, BMP, MG, ADIFF ####[address] [address] Potassium [Moles/Vol] 4.4 mmol/L Normal 3.5-5.0 [facility] Comment on above: Performed By: #### C BC, ANEU, HFP, GFR, BMP, MG, ADIFF ####[address] [address] Sodium [Moles/Vol] 141 mmol/L Normal 136-145 [facility] Comment on above: Performed By: #### C BC, ANEU, HFP, GFR, BMP, MG, ADIFF ####[place] [address] Urea nitrogen [Mass/Vol] 18.0 mg/dL Normal 8.0-22.0 [facility] Comment on above: Performed By: #### C BC, ANEU, HFP, GFR, BMP, MG, ADIFF ####[place] [address] CBCon 05-16-2024 Erythrocyte distribution width (RBC) [Ratio] 14.7 % Normal 11.5-15.5 [facility] Comment on above: Performed By: #### C BC, ANEU, HFP, GFR, BMP, MG, ADIFF ####[place] [address] Hematocrit (Bld) [Volume fraction] 34.0 % Normal 34.0-46.0 [facility] Comment on above: Performed By: #### C BC, ANEU, HFP, GFR, BMP, MG, ADIFF ####[place] [address] Hgb 11.0 G/dL Low 12.0-16.0 [facility] Comment on above: Performed By: #### C BC, ANEU, HFP, GFR, BMP, MG, ADIFF ####[place] [address] MCH (RBC) [Entitic mass] 32.2 pg Normal 27.0-33.0 [facility] Comment on above: Performed By: #### C BC, ANEU, HFP, GFR, BMP, MG, ADIFF ####[place] [address] MCHC 32.4 G/dL Normal 32.0-36.0 [facility] Comment on above: Performed By: #### C BC, ANEU, HFP, GFR, BMP, MG, ADIFF ####[place] [address] MCV (RBC) [Entitic vol] 99.5 fL High 80.0-99.0 [facility] Comment on above: Performed By: #### C BC, ANEU, HFP, GFR, BMP, MG, ADIFF ####[place] [address] Platelet 175 10 3/mcL Normal 150-450 [facility] Comment on above: Performed By: #### C BC, ANEU, HFP, GFR, BMP, MG, ADIFF ####[place] [address] Platelet mean volume (Bld) [Entitic vol] 9.1 fL Normal 6.6-10.5 [facility] Comment on above: Performed By: #### C BC, ANEU, HFP, GFR, BMP, MG, ADIFF ####[place] [address] RBC 3.42 10 6/mcL Low 4.10-5.30 [facility] Comment on above: Performed By: #### C BC, ANEU, HFP, GFR, BMP, MG, ADIFF ####[place] [address] WBC 12.0 10 3/mcL High 4.5-10.8 [facility] Comment on above: Performed By: #### C BC, ANEU, HFP, GFR, BMP, MG, ADIFF ####[place] [address] HFPon 05-16-2024 Bili Indirect 0.2 mg/dL Normal 0.1-10.0 [facility] Comment on above: Performed By: #### C BC, ANEU, HFP, GFR, BMP, MG, ADIFF ####[place] [address] Albumin Level 2.5 G/dL Low 3.2-4.8 [facility] Comment on above: Performed By: #### C BC, ANEU, HFP, GFR, BMP, MG, ADIFF ####[place] [address] Albumin/Globulin [Mass ratio] 0.6 {ratio} Low 0.9-1.6 [facility] Comment on above: Performed By: #### C BC, ANEU, HFP, GFR, BMP, MG, ADIFF ####[place] [address] ALP [Catalytic activity/Vol] 87 U/L Normal 38-126 [facility] Comment on above: Performed By: #### C BC, ANEU, HFP, GFR, BMP, MG, ADIFF ####[place] [address] ALT [Catalytic activity/Vol] 38 U/L Normal 10-49 [facility] Comment on above: Performed By: #### C BC, ANEU, HFP, GFR, BMP, MG, ADIFF ####[place] [address] AST [Catalytic activity/Vol] 21 U/L Normal 8-34 [facility] Comment on above: Performed By: #### C BC, ANEU, HFP, GFR, BMP, MG, ADIFF ####[place] [address] Bili Direct 0.1 mg/dL Normal 0.0-0.4 [facility] Comment on above: Result Comment: Use of this assay is not recommended for patients undergoing treatment with eltrombopag due to the potential for falsely elevated results. Performed By: #### C BC, ANEU, HFP, GFR, BMP, MG, ADIFF ####[place] [address] Bili Total 0.30 mg/dL Normal 0.20-1.20 [facility] Comment on above: Result Comment: Use of this assay is not recommended for patients undergoing treatment with eltrombopag due to the potential for falsely elevated results. Performed By: #### C BC, ANEU, HFP, GFR, BMP, MG, ADIFF ####[place] [address] Globulin 4.0 G/dL High 1.5-3.8 [facility] Comment on above: Performed By: #### C BC, ANEU, HFP, GFR, BMP, MG, ADIFF ####[place] [address] Total Protein 6.5 G/dL Normal 5.7-8.2 [facility] Comment on above: Performed By: #### C BC, ANEU, HFP, GFR, BMP, MG, ADIFF ####[place] [address] LABORATORYOrdered By: SYSTEM SYSTEM on 05-16-2024 Bili Indirect 0.2 mg/dL Normal 0.1 - 10.0 mg/dL Chemistry S Bilirubin.conjugated [Mass/Vol] 0.1 mg/dL Normal 0.0 - 0.4 mg/dL ADM SS Comment on above: Interpretive Data: U se of this assay is not recommended for patients undergoing treatment with eltrombopag due to the potential for falsely elevated results. Glucose [Mass/Vol] 105 mg/dL Invalid Interpretation Code Auto Chem SS Comment on above: Interpretive Data: E stimated average glucose (eAG) is a calculated value from Hemoglobin A1C and is merchandiser retail representative of the average blood glucose level in the last 2-3 month period. Normal range: less than 114 mg/dL HbA1c (Bld) [Mass fraction] 5.3 % Normal 4.0 - 6.0 % Auto Chem SS MGon 05-16-2024 Magnesium [Mass/Vol] 2.3 mg/dL Normal 1.6-2.4 [facility] Comment on above: Performed By: #### M G, BMP, GFR ####[place] [address] Magnesium [Mass/Vol] 2.4 mg/dL Normal 1.6-2.4 [facility] Comment on above: Performed By: #### C BC, ANEU, HFP, GFR, BMP, MG, ADIFF ####[place] [address] .Auto Diffon 05-15-2024 Basophil, Absolute 0.1 10 3/mcL Normal 0.0-0.3 [facility] Comment on above: Performed By: #### A DAISY, CBC, ADIFF, BMP, GFR, MG ####[place] [address] Basophils/100 WBC (Bld) 0.7 % Normal 0.0-2.5 [facility] Comment on above: Performed By: #### A DAISY, CBC, ADIFF, BMP, GFR, MG ####[place] [address] Eosinophil, Absolute 0.8 10 3/mcL High 0.0-0.7 [facility] Comment on above: Performed By: #### A DAISY, CBC, ADIFF, BMP, GFR, MG ####[address] [address] Eosinophils/100 WBC (Bld) 6.2 % High 0.0-6.0 [facility] Comment on above: Performed By: #### A DAISY, CBC, ADIFF, BMP, GFR, MG ####[address] [address] Lymphocyte, Absolute 1.5 10 3/mcL Normal 0.9-4.3 [facility] Comment on above: Performed By: #### A DAISY, CBC, ADIFF, BMP, GFR, MG ####[address] [address] Lymphocytes/100 WBC (Bld) 11.7 % Low 20.0-40.0 [facility] Comment on above: Performed By: #### A DAISY, CBC, ADIFF, BMP, GFR, MG ####[address] [address] Monocyte, Absolute 1.5 10 3/mcL High 0.1-1.4 [facility] Comment on above: Performed By: #### A DAISY, CBC, ADIFF, BMP, GFR, MG ####[address] [address] Monocytes/100 WBC (Bld) 11.2 % Normal 2.0-13.0 [facility] Comment on above: Performed By: #### A DAISY, CBC, ADIFF, BMP, GFR, MG ####[address] [address] Neutrophils/100 WBC (Bld) 70.2 % Normal 50.0-75.0 [facility] Comment on above: Performed By: #### A DAISY, CBC, ADIFF, BMP, GFR, MG ####[address] [address] .GFRon 05-15-2024 Estimated Glomerular Filtration Rate 117 ml/min/1.73sqm Normal [facility] Comment on above: Result Comment: Stag es of Chronic Kidney Disease (CKD)Stage Description eGFR(ml/min/1.73 sq.m.)CKD 1 Normal kidney function or >=90 normal kindney function with possible kidney damage (ex. Proteinuria)CKD 2 Kidney damage with mild loss 60-89 of kidney functionCKD 3a Mild to moderate loss of kidney 45-59 functionCKD 3b Moderate to severe loss of 30-44 of kindey function CKD 4 Severe loss of kidney function 15-29CKD 5 Kidney failure <15Note: ( live 04/13/2024) the eGFR calculation was updated to the KD-EPI creatinine equation without a race factor to calculate theeGFR results. Performed By: #### M G, BMP, GFR ####[place] [address] Estimated Glomerular Filtration Rate 120 ml/min/1.73sqm Normal [facility] Comment on above: Result Comment: Stag es of Chronic Kidney Disease (CKD)Stage Description eGFR(ml/min/1.73 sq.m.)CKD 1 Normal kidney function or >=90 normal kindney function with possible kidney damage (ex. Proteinuria)CKD 2 Kidney damage with mild loss 60-89 of kidney functionCKD 3a Mild to moderate loss of kidney 45-59 functionCKD 3b Moderate to severe loss of 30-44 of kindey function CKD 4 Severe loss of kidney function 15-29CKD 5 Kidney failure <15Note: ([facility] 04/13/2024) the eGFR calculation was updated to the KD-EPI creatinine equation without a race factor to calculate theeGFR results. Performed By: #### A DAISY, CBC, ADIFF, BMP, GFR, MG ####[place] [address] .NEUABSon 05-15-2024 Neutrophil, Absolute 9.2 10 3/mcL High 2.3-8.1 [facility] Comment on above: Performed By: #### A DAISY, CBC, ADIFF, BMP, GFR, MG ####[place] [address] BMPon 05-15-2024 BUN/Creatinine Ratio 33.3 ratio High 10.0-22.0 [facility] Comment on above: Performed By: #### M G, BMP, GFR ####[address] [address] Calcium [Mass/Vol] 8.7 mg/dL Normal 8.7-10.4 [facility] Comment on above: Performed By: #### Rah Mott BMP, GFR ####[address] [address] Chloride [Moles/Vol] 99 mmol/L Normal 98-110 [facility] Comment on above: Performed By: #### Rah Mott BMP, GFR ####[address] [address] CO2 [Moles/Vol] 39 mmol/L High 22-32 [facility] Comment on above: Performed By: #### DANIELLE Jenkins, GFR ####[address] [address] Creatinine [Mass/Vol] 0.57 mg/dL Normal 0.50-1.20 [facility] Comment on above: Result Comment: Test ing performed on Place[employer]logger analyzer using enzymatic creatinine methodology. Performed By: #### Rah Mott BMP, GFR ####[address] [address] Electrolyte Balance 2.0 mEq/L Low 4.0-15.0 [facility] Comment on above: Performed By: #### Rah Mott BMP, GFR ####[address] [address] Glucose [Mass/Vol] 98 mg/dL Normal 70-110 [facility] Comment on above: Performed By: #### Rah Mott BMP, GFR ####[address] [address] Potassium [Moles/Vol] 4.6 mmol/L Normal 3.5-5.0 [facility] Comment on above: Performed By: #### Rah Mott BMP, GFR ####[address] [address] Sodium [Moles/Vol] 140 mmol/L Normal 136-145 [facility] Comment on above: Performed By: #### Rah Mott BMP, GFR ####[address] [address] Urea nitrogen [Mass/Vol] 19.0 mg/dL Normal 8.0-22.0 [facility] Comment on above: Performed By: #### M G, BMP, GFR ####[place] [address] BUN/Creatinine Ratio 37.3 ratio High 10.0-22.0 [facility] Comment on above: Performed By: #### A DAISY, CBC, ADIFF, BMP, GFR, MG ####[place] [address] Calcium [Mass/Vol] 8.7 mg/dL Normal 8.7-10.4 [facility] Comment on above: Performed By: #### A DAISY, CBC, ADIFF, BMP, GFR, MG ####[place] [address] Chloride [Moles/Vol] 100 mmol/L Normal 98-110 [facility] Comment on above: Performed By: #### A DAISY, CBC, ADIFF, BMP, GFR, MG ####[place] [address] CO2 [Moles/Vol] 37 mmol/L High 22-32 [facility] [facility] Comment on above: Performed By: #### A DAISY, CBC, ADIFF, BMP, GFR, MG ####[place] [address] Creatinine [Mass/Vol] 0.51 mg/dL Normal 0.50-1.20 [facility] Comment on above: Result Comment: Test ing performed on PlaceBlogger analyzer using enzymatic creatinine methodology. Performed By: #### A DAISY, CBC, ADIFF, BMP, GFR, MG ####[place] [id number] Electrolyte Balance 3.0 mEq/L Low 4.0-15.0 [facility] Comment on above: Performed By: #### A DAISY, CBC, ADIFF, BMP, GFR, MG ####[place] [id number] Glucose [Mass/Vol] 89 mg/dL Normal 70-110 [facility] Comment on above: Performed By: #### A DAISY, CBC, ADIFF, BMP, GFR, MG ####[place] [address] Potassium [Moles/Vol] 4.8 mmol/L Normal 3.5-5.0 [facility] Comment on above: Performed By: #### A DAISY, CBC, ADIFF, BMP, GFR, MG ####[place] [address] Sodium [Moles/Vol] 140 mmol/L Normal 136-145 [facility] Comment on above: Performed By: #### A DAISY, CBC, ADIFF, BMP, GFR, MG ####[place] [address] Urea nitrogen [Mass/Vol] 19.0 mg/dL Normal 8.0-22.0 [facility] Comment on above: Performed By: #### A DAISY, CBC, ADIFF, BMP, GFR, MG ####[place] [address] CBCon 05-15-2024 Erythrocyte distribution width (RBC) [Ratio] 14.8 % Normal 11.5-15.5 [facility] Comment on above: Performed By: #### A DAISY, CBC, ADIFF, BMP, GFR, MG ####[place] [address] Hematocrit (Bld) [Volume fraction] 32.4 % Low 34.0-46.0 [facility] Comment on above: Performed By: #### A DAISY, CBC, ADIFF, BMP, GFR, MG ####[place] [address] Hgb 10.3 G/dL Low 12.0-16.0 [facility] Comment on above: Performed By: #### A DAISY, CBC, ADIFF, BMP, GFR, MG ####[place] [address] MCH (RBC) [Entitic mass] 31.5 pg Normal 27.0-33.0 [facility] Comment on above: Performed By: #### A DAISY, CBC, ADIFF, BMP, GFR, MG ####[place] [address] MCHC 31.9 G/dL Low 32.0-36.0 [facility] Comment on above: Performed By: #### A DAISY, CBC, ADIFF, BMP, GFR, MG ####[place] [address] MCV (RBC) [Entitic vol] 98.8 fL Normal 80.0-99.0 [facility] Comment on above: Performed By: #### A DAISY, CBC, ADIFF, BMP, GFR, MG ####[place] [address] Platelet 202 10 3/mcL Normal 150-450 [facility] Comment on above: Performed By: #### A DAISY, CBC, ADIFF, BMP, GFR, MG ####[place] [address] Platelet mean volume (Bld) [Entitic vol] 9.4 fL Normal 6.6-10.5 [facility] Comment on above: Performed By: #### A DAISY, CBC, ADIFF, BMP, GFR, MG ####[place] [address] RBC 3.28 10 6/mcL Low 4.10-5.30 [facility] Comment on above: Performed By: #### A DAISY, CBC, ADIFF, BMP, GFR, MG ####[place] [address] WBC 13.1 10 3/mcL High 4.5-10.8 [facility] Comment on above: Performed By: #### A DAISY, CBC, ADIFF, BMP, GFR, MG ####[place] [address] LABORATORYOrdered By: Yan Culp on 05-15-2024 Blood Glucose Testing Reason Routine (05/15/24 3:15 PM) [facility] Glucose [Mass/Vol] 126 mg/dL High 70 - 110 mg/dL [facility] Blood Glucose Testing Reason Routine (05/15/24 11:15 AM) [facility] Glucose [Mass/Vol] 132 mg/dL High 70 - 110 mg/dL [facility] Blood Glucose Testing Reason Routine (05/15/24 7:30 AM) [facility] Glucose [Mass/Vol] 116 mg/dL High 70 - 110 mg/dL [facility] MGon 05-15-2024 Magnesium [Mass/Vol] 2.2 mg/dL Normal 1.6-2.4 [facility] Comment on above: Performed By: #### M G, BMP, GFR ####[place] [address] Magnesium [Mass/Vol] 2.3 mg/dL Normal 1.6-2.4 [facility] Comment on above: Performed By: #### A DAISY, CBC, ADIFF, BMP, GFR, MG ####[address] [address] VBGon 05-15-2024 BE Venous 9.7 mmol/L High -3.0-3.0 [facility] Comment on above: Performed By: #### V BG ####[place] [id number] CO2 [Moles/Vol] 38.1 mmol/L High 22.0-32.0 [facility] Comment on above: Performed By: #### V BG ####[address] [address] HCO3 (Bld) [Moles/Vol] 36.2 mmol/L High 21.0-30.0 [facility] Comment on above: Performed By: #### V BG ####[place] [address] Oxygen saturation in Blood 97.8 % High 70.0-75.0 [facility] Comment on above: Performed By: #### V BG ####[place] [address] pCO2 Satish 60.0 mmHg High 41.0-51.0 [facility] Comment on above: Performed By: #### V BG ####[place] [address] pH Venous 7.399 Normal 7.380-7.460 [facility] Comment on above: Performed By: #### V BG ####[place] [address] pO2 Satish 101.4 mmHg High 35.0-40.0 [facility] Comment on above: Performed By: #### V BG ####[place] [address] XR CHEST 1 VIEWon 05-15-2024 XR CHEST [address] [facility] .Auto Diffon 05-14-2024 Basophil, Absolute 0.0 10 3/mcL Normal 0.0-0.3 [facility] Comment on above: Performed By: #### A DAISY, GFR, ADIFF, BMP, CBC, MG ####[place] [address] Basophils/100 WBC (Bld) 0.3 % Normal 0.0-2.5 [facility] Comment on above: Performed By: #### A DAISY, GFR, ADIFF, BMP, CBC, MG ####[place] [address] Eosinophil, Absolute 0.6 10 3/mcL Normal 0.0-0.7 [facility] Comment on above: Performed By: #### A DAISY, GFR, ADIFF, BMP, CBC, MG ####[place] [address] Eosinophils/100 WBC (Bld) 4.9 % Normal 0.0-6.0 [facility] Comment on above: Performed By: #### A DAISY, GFR, ADIFF, BMP, CBC, MG ####[place] [address] Lymphocyte, Absolute 1.1 10 3/mcL Normal 0.9-4.3 [facility] Comment on above: Performed By: #### A DAISY, GFR, ADIFF, BMP, CBC, MG ####[address] [address] Lymphocytes/100 WBC (Bld) 8.6 % Low 20.0-40.0 [facility] Comment on above: Performed By: #### A DAISY, GFR, ADIFF, BMP, CBC, MG ####[address] [address] Monocyte, Absolute 1.5 10 3/mcL High 0.1-1.4 [facility] Comment on above: Performed By: #### A DAISY, GFR, ADIFF, BMP, CBC, MG ####[address] [address] Monocytes/100 WBC (Bld) 12.0 % Normal 2.0-13.0 [facility] Comment on above: Performed By: #### A DAISY, GFR, ADIFF, BMP, CBC, MG ####[address] [address] Neutrophils/100 WBC (Bld) 74.2 % Normal 50.0-75.0 [facility] Comment on above: Performed By: #### A DAISY, GFR, ADIFF, BMP, CBC, MG ####[address] [address] .GFRon 05-14-2024 Estimated Glomerular Filtration Rate 120 ml/min/1.73sqm Normal [facility] Comment on above: Result Comment: Stag es of Chronic Kidney Disease (CKD)Stage Description eGFR(ml/min/1.73 sq.m.)CKD 1 Normal kidney function or >=90 normal kindney function with possible kidney damage (ex. Proteinuria)CKD 2 Kidney damage with mild loss 60-89 of kidney functionCKD 3a Mild to moderate loss of kidney 45-59 functionCKD 3b Moderate to severe loss of 30-44 of kindey function CKD 4 Severe loss of kidney function 15-29CKD 5 Kidney failure <15Note: (go live 2024) the eGFR calculation was updated to the KD-EPI creatinine equation without a race factor to calculate theeGFR results. Performed By: #### M G, BMP, GFR ####[address] [address] Estimated Glomerular Filtration Rate 118 ml/min/1.73sqm Normal [facility] Comment on above: Result Comment: Stag es of Chronic Kidney Disease (CKD)Stage Description eGFR(ml/min/1.73 sq.m.)CKD 1 Normal kidney function or >=90 normal kindney function with possible kidney damage (ex. Proteinuria)CKD 2 Kidney damage with mild loss 60-89 of kidney functionCKD 3a Mild to moderate loss of kidney 45-59 functionCKD 3b Moderate to severe loss of 30-44 of kindey function CKD 4 Severe loss of kidney function 15-29CKD 5 Kidney failure <15Note: (go live 2024) the eGFR calculation was updated to the KD-EPI creatinine equation without a race factor to calculate theeGFR results. Performed By: #### A DAISY, GFR, ADIFF, BMP, CBC, MG ####[place] [address] .NEUABSon 05-14-2024 Neutrophil, Absolute 9.4 10 3/mcL High 2.3-8.1 [facility] Comment on above: Performed By: #### A DAISY, GFR, ADIFF, BMP, CBC, MG ####[place] [address] BGon 05-14-2024 Base excess Calc (Bld) [Moles/Vol] 9.0 mmol/L Normal [facility] Comment on above: Performed By: #### B G ####[place] [address] CO2 [Moles/Vol] 37.5 mmol/L High 22.0-30.0 [facility] Comment on above: Performed By: #### B G ####[place] [address] HCO3 (Bld) [Moles/Vol] 35.6 mmol/L High 21.0-29.0 [facility] Comment on above: Performed By: #### B G ####[place] [address] Oxygen (Bld) [Partial pressure] 77.3 mm[Hg] Normal 74.0-108.0 [facility] Comment on above: Performed By: #### B G ####[place] [address] Oxygen saturation in Blood 94.7 % Normal 92.0-96.0 [facility] Comment on above: Performed By: #### B G ####[address] [address] pCO2 59.4 mmHg High 32.0-46.0 [facility] Comment on above: Performed By: #### B G ####[place] [address] pH (Bld) 7.396 [pH] Normal 7.380-7.460 [facility] Comment on above: Performed By: #### B G ####[place] [address] BMPon 05-14-2024 BUN/Creatinine Ratio 35.3 ratio High 10.0-22.0 [facility] Comment on above: Performed By: #### Rah Mott, BMP, GFR ####[place] [address] Calcium [Mass/Vol] 9.1 mg/dL Normal 8.7-10.4 [facility] Comment on above: Performed By: #### Rah Mott, BMP, GFR ####[place] [address] Chloride [Moles/Vol] 103 mmol/L Normal 98-110 [facility] Comment on above: Performed By: #### Rah Mott, BMP, GFR ####[place] [address] CO2 [Moles/Vol] 37 mmol/L High 22-32 [facility] Comment on above: Performed By: #### Rah Mott, BMP, GFR ####[place] [address] Creatinine [Mass/Vol] 0.51 mg/dL Normal 0.50-1.20 [facility] Comment on above: Result Comment: Test ing performed on Place[employer]logger analyzer using enzymatic creatinine methodology. Performed By: #### Rah Mott, BMP, GFR ####[place] [address] Electrolyte Balance 3.0 mEq/L Low 4.0-15.0 [facility] Comment on above: Performed By: #### M G, BMP, GFR ####[address] [address] Glucose [Mass/Vol] 113 mg/dL High 70-110 [facility] Comment on above: Performed By: #### M G, BMP, GFR ####[place] [id number] Potassium [Moles/Vol] 4.3 mmol/L Normal 3.5-5.0 [facility] Comment on above: Performed By: #### M G, BMP, GFR ####[place] [address] Sodium [Moles/Vol] 143 mmol/L Normal 136-145 [facility] Comment on above: Performed By: #### M G, BMP, GFR ####[address] [address] Urea nitrogen [Mass/Vol] 18.0 mg/dL Normal 8.0-22.0 [facility] Comment on above: Performed By: #### M G, BMP, GFR ####[place] [address] BUN/Creatinine Ratio 48.2 ratio High 10.0-22.0 [facility] Comment on above: Performed By: #### A DAISY, GFR, ADIFF, BMP, CBC, MG ####[address] [address] Calcium [Mass/Vol] 9.1 mg/dL Normal 8.7-10.4 [facility] Comment on above: Performed By: #### A DAISY, GFR, ADIFF, BMP, CBC, MG ####[address] [address] Chloride [Moles/Vol] 103 mmol/L Normal 98-110 [facility] Comment on above: Performed By: #### A DAISY, GFR, ADIFF, BMP, CBC, MG ####[place] [id number] CO2 [Moles/Vol] 39 mmol/L High 22-32 [facility] Comment on above: Performed By: #### A DAISY, GFR, ADIFF, BMP, CBC, MG ####[address] [address] Creatinine [Mass/Vol] 0.56 mg/dL Normal 0.50-1.20 [facility] Comment on above: Result Comment: Test ing performed on Place[employer]logger analyzer using enzymatic creatinine methodology. Performed By: #### A DAISY, GFR, ADIFF, BMP, CBC, MG ####[place] [address] Electrolyte Balance 3.0 mEq/L Low 4.0-15.0 [facility] Comment on above: Performed By: #### A DAISY, GFR, ADIFF, BMP, CBC, MG ####[place] [address] Glucose [Mass/Vol] 120 mg/dL High 70-110 [facility] Comment on above: Performed By: #### A DAISY, GFR, ADIFF, BMP, CBC, MG ####[place] [address] Potassium [Moles/Vol] 4.4 mmol/L Normal 3.5-5.0 [facility] Comment on above: Result Comment: Spec imen slightly hemolyzed. Performed By: #### A DAISY, GFR, ADIFF, BMP, CBC, MG ####[address] [address] Sodium [Moles/Vol] 145 mmol/L Normal 136-145 [facility] Comment on above: Performed By: #### A DAISY, GFR, ADIFF, BMP, CBC, MG ####[place] [id number] Urea nitrogen [Mass/Vol] 27.0 mg/dL High 8.0-22.0 [facility] Comment on above: Performed By: #### A DAISY, GFR, ADIFF, BMP, CBC, MG ####[address] [address] CBCon 05-14-2024 Erythrocyte distribution width (RBC) [Ratio] 14.7 % Normal 11.5-15.5 [facility] Comment on above: Performed By: #### A DAISY, GFR, ADIFF, BMP, CBC, MG ####[place] [address] Hematocrit (Bld) [Volume fraction] 31.8 % Low 34.0-46.0 [facility] Comment on above: Performed By: #### A DAISY, GFR, ADIFF, BMP, CBC, MG ####[place] [address] Hgb 10.7 G/dL Low 12.0-16.0 [facility] Comment on above: Performed By: #### A DAISY, GFR, ADIFF, BMP, CBC, MG ####[place] [address] MCH (RBC) [Entitic mass] 33.1 pg High 27.0-33.0 [facility] Comment on above: Performed By: #### A DAISY, GFR, ADIFF, BMP, CBC, MG ####[place] [address] MCHC 33.5 G/dL Normal 32.0-36.0 [facility] Comment on above: Performed By: #### A DAISY, GFR, ADIFF, BMP, CBC, MG ####[place] [address] MCV (RBC) [Entitic vol] 99.0 fL Normal 80.0-99.0 [facility] Comment on above: Performed By: #### A DAISY, GFR, ADIFF, BMP, CBC, MG ####[place] [address] Platelet 173 10 3/mcL Normal 150-450 [facility] Comment on above: Performed By: #### A DAISY, GFR, ADIFF, BMP, CBC, MG ####[place] [address] Platelet mean volume (Bld) [Entitic vol] 9.8 fL Normal 6.6-10.5 [facility] Comment on above: Performed By: #### A DAISY, GFR, ADIFF, BMP, CBC, MG ####[place] [address] [place] [address] RBC 3.22 10 6/mcL Low 4.10-5.30 [facility] Comment on above: Performed By: #### A DAISY, GFR, ADIFF, BMP, CBC, MG ####[place] [address] [place] [address] WBC 12.7 10 3/mcL High 4.5-10.8 [facility] Comment on above: Performed By: #### A DAISY, GFR, ADIFF, BMP, CBC, MG ####[address] [address] LABORATORYOrdered By: Colin hernandez on 05-14-2024 Blood Glucose Interventions Administered food/juice (05/14/24 1:40 PM) [facility] MGon 05-14-2024 Magnesium [Mass/Vol] 2.2 mg/dL Normal 1.6-2.4 [facility] Comment on above: Performed By: #### M G, BMP, GFR ####[address] [address] Magnesium [Mass/Vol] 2.6 mg/dL High 1.6-2.4 [facility] Comment on above: Performed By: #### A DAISY, GFR, ADIFF, BMP, CBC, MG ####[address] [address] XR ANKLE MINIMUM 3 VIEWS RIG HTon 05-14-2024 XR ANKLE MINIMUM 3 VIEWS RIGHT Normal [facility] XR CHEST 1 VIEWon 05-14-2024 XR CHEST 1 VIEW Normal [facility] XR CHEST 1 VIEW Normal [facility] .Auto Diffon 05-13-2024 Basophil, Absolute 0.0 10 3/mcL Normal 0.0-0.3 [facility] Comment on above: Performed By: #### M G, PHOS, CAION, CMP, MYCO, GFR, CBC, TROPHS, ADIFF, ANEU ####[address] [address] Basophils/100 WBC (Bld) 0.3 % Normal 0.0-2.5 [facility] Comment on above: Performed By: #### M G, PHOS, CAION, CMP, MYCO, GFR, CBC, TROPHS, ADIFF, ANEU ####[address] [address] Eosinophil, Absolute 0.5 10 3/mcL Normal 0.0-0.7 [facility] Comment on above: Performed By: #### M G, PHOS, CAION, CMP, MYCO, GFR, CBC, TROPHS, ADIFF, ANEU ####[address] [address] Eosinophils/100 WBC (Bld) 3.3 % Normal 0.0-6.0 [facility] Comment on above: Performed By: #### M G, PHOS, CAION, CMP, MYCO, GFR, CBC, TROPHS, ADIFF, ANEU ####[address] [address] Lymphocyte, Absolute 0.8 10 3/mcL Low 0.9-4.3 [facility] Comment on above: Performed By: #### M G, PHOS, CAION, CMP, MYCO, GFR, CBC, TROPHS, ADIFF, ANEU ####[address] [address] Lymphocytes/100 WBC (Bld) 6.1 % Low 20.0-40.0 [facility] Comment on above: Performed By: #### M G, PHOS, CAION, CMP, MYCO, GFR, CBC, TROPHS, ADIFF, ANEU ####[address] [address] Monocyte, Absolute 1.5 10 3/mcL High 0.1-1.4 [facility] Comment on above: Performed By: #### M G, PHOS, CAION, CMP, MYCO, GFR, CBC, TROPHS, ADIFF, ANEU ####[address] [address] Monocytes/100 WBC (Bld) 10.7 % Normal 2.0-13.0 [facility] Comment on above: Performed By: #### M G, PHOS, CAION, CMP, MYCO, GFR, CBC, TROPHS, ADIFF, ANEU ####[address] [address] Neutrophils/100 WBC (Bld) 79.6 % High 50.0-75.0 [facility] Comment on above: Performed By: #### M G, PHOS, CAION, CMP, MYCO, GFR, CBC, TROPHS, ADIFF, ANEU ####[address] [address] .GFRon 05-13-2024 Estimated Glomerular Filtration Rate 116 ml/min/1.73sqm [facility] Comment on above: Result Comment: Stag es of Chronic Kidney Disease (CKD)Stage Description eGFR(ml/min/1.73 sq.m.)CKD 1 Normal kidney function or >=90 normal kindney function with possible kidney damage (ex. Proteinuria)CKD 2 Kidney damage with mild loss 60-89 of kidney functionCKD 3a Mild to moderate loss of kidney 45-59 functionCKD 3b Moderate to severe loss of 30-44 of kindey function CKD 4 Severe loss of kidney function 15-29CKD 5 Kidney failure <15Note: ( live 04/13/2024) the eGFR calculation was updated to the KD-EPI creatinine equation without a race factor to calculate theeGFR results. Performed By: #### M G, GFR, BMP ####[address] [address] Estimated Glomerular Filtration Rate 109 ml/min/1.73sqm [facility] Comment on above: Result Comment: Stag es of Chronic Kidney Disease (CKD)Stage Description eGFR(ml/min/1.73 sq.m.)CKD 1 Normal kidney function or >=90 normal kindney function with possible kidney damage (ex. Proteinuria)CKD 2 Kidney damage with mild loss 60-89 of kidney functionCKD 3a Mild to moderate loss of kidney 45-59 functionCKD 3b Moderate to severe loss of 30-44 of kindey function CKD 4 Severe loss of kidney function 15-29CKD 5 Kidney failure <15Note: (go live 2024) the eGFR calculation was updated to the KD-EPI creatinine equation without a race factor to calculate theeGFR results. Performed By: #### M G, PHOS, CAION, CMP, MYCO, GFR, CBC, TROPHS, ADIFF, ANEU ####[place] [address] .NEUABSon 05-13-2024 Neutrophil, Absolute 11.1 10 3/mcL High 2.3-8.1 [facility] Comment on above: Performed By: #### M G, PHOS, CAION, CMP, MYCO, GFR, CBC, TROPHS, ADIFF, ANEU ####[place] [address] BGon 05-13-2024 Base excess Calc (Bld) [Moles/Vol] 17.9 mmol/L Normal [facility] Comment on above: Performed By: #### B G ####[place] [address] CO2 [Moles/Vol] 44.7 mmol/L Critically abnormal 22.0-30.0 [facility] Comment on above: Performed By: #### B G ####[place] [address] HCO3 (Bld) [Moles/Vol] 43.1 mmol/L High 21.0-29.0 [facility] Comment on above: Performed By: #### B G ####[place] [address] Oxygen (Bld) [Partial pressure] 278.9 mm[Hg] High 74.0-108.0 [facility] Comment on above: Performed By: #### B G ####[place] [address] Oxygen saturation in Blood 99.8 % High 92.0-96.0 [facility] Comment on above: Performed By: #### B G ####[place] [address] pCO2 53.1 mmHg High 32.0-46.0 [facility] Comment on above: Performed By: #### B G ####[place] [address] pH (Bld) 7.527 [pH] High 7.380-7.460 [facility] Comment on above: Performed By: #### B Tiera ####[place] [address] BMPon 05-13-2024 CO2 [Moles/Vol] mmol/L Critically abnormal 22-32 [facility] Comment on above: Performed By: #### Rah Mott, GFR, BMP ####[place] [address] Electrolyte Balance Unable to Calculate Normal 4.0-15. 0 [facility] Comment on above: Result Comment: Unab le to calculate this test result accurately. Results used to calculate this test are outside the reportable range. Performed By: #### Rah Mott, GFR, BMP ####[place] [address] BUN/Creatinine Ratio 43.3 ratio High 10.0-22.0 [facility] Comment on above: Performed By: #### Rah Mott, GFR, BMP ####[place] [address] Calcium [Mass/Vol] 9.1 mg/dL Normal 8.7-10.4 [facility] Comment on above: Performed By: #### Rah Mott, GFR, BMP ####[place] [address] Chloride [Moles/Vol] 100 mmol/L Normal 98-110 [facility] Comment on above: Performed By: #### Rah Mott, GFR, BMP ####[place] [address] Creatinine [Mass/Vol] 0.60 mg/dL Normal 0.50-1.20 [facility] Comment on above: Result Comment: Test ing performed on PlaceBlogger analyzer using enzymatic creatinine methodology. Performed By: #### Rah Mott, GFR, BMP ####[place] [address] Glucose [Mass/Vol] 84 mg/dL Normal 70-110 [facility] Comment on above: Performed By: #### Rah Mott, GFR, BMP ####[place] [id number] Potassium [Moles/Vol] 4.6 mmol/L Normal 3.5-5.0 [facility] Comment on above: Performed By: #### Rah Mott, GFR, BMP ####[place] [address] Sodium [Moles/Vol] 144 mmol/L Normal 136-145 [facility] Comment on above: Performed By: #### Rah Mott, GFR, BMP ####[place] [address] Urea nitrogen [Mass/Vol] 26.0 mg/dL High 8.0-22.0 [facility] Comment on above: Performed By: #### Rah Mott GFR, BMP ####[place] [address] CAIONon 05-13-2024 Calcium Ionized 1.02 mmol/L Low 1.12-1.32 [facility] Comment on above: Order Comment: Speci men volume must be 80% full05/13/2024 04:08:49 EST Performed By: #### M Tiera, PHOS, CAION, CMP, MYCO, GFR, CBC, TROPHS, ADIFF, ANEU ####[place] [address] CBCon 05-13-2024 Erythrocyte distribution width (RBC) [Ratio] 14.4 % Normal 11.5-15.5 [facility] Comment on above: Performed By: #### Rah G, PHOS, CAION, CMP, MYCO, GFR, CBC, TROPHS, ADIFF, ANEU ####[place] [address] Hematocrit (Bld) [Volume fraction] 30.3 % Low 34.0-46.0 [facility] Comment on above: Performed By: #### M G, PHOS, CAION, CMP, MYCO, GFR, CBC, TROPHS, ADIFF, ANEU ####[place] [address] Hgb 10.0 G/dL Low 12.0-16.0 [facility] Comment on above: Performed By: #### M G, PHOS, CAION, CMP, MYCO, GFR, CBC, TROPHS, ADIFF, ANEU ####[place] [address] MCH (RBC) [Entitic mass] 32.6 pg Normal 27.0-33.0 [facility] Comment on above: Performed By: #### M G, PHOS, CAION, CMP, MYCO, GFR, CBC, TROPHS, ADIFF, ANEU ####[place] [address] MCHC 32.9 G/dL Normal 32.0-36.0 [facility] Comment on above: Performed By: #### M G, PHOS, CAION, CMP, MYCO, GFR, CBC, TROPHS, ADIFF, ANEU ####[place] [address] MCV (RBC) [Entitic vol] 99.2 fL High 80.0-99.0 [facility] Comment on above: Performed By: #### M G, PHOS, CAION, CMP, MYCO, GFR, CBC, TROPHS, ADIFF, ANEU ####[place] [address] Platelet 162 10 3/mcL Normal 150-450 [facility] Comment on above: Performed By: #### M G, PHOS, CAION, CMP, MYCO, GFR, CBC, TROPHS, ADIFF, ANEU ####[place] [address] Platelet mean volume (Bld) [Entitic vol] 9.6 fL Normal 6.6-10.5 [facility] Comment on above: Performed By: #### M G, PHOS, CAION, CMP, MYCO, GFR, CBC, TROPHS, ADIFF, ANEU ####[place] [address] RBC 3.06 10 6/mcL Low 4.10-5.30 [facility] Comment on above: Performed By: #### M G, PHOS, CAION, CMP, MYCO, GFR, CBC, TROPHS, ADIFF, ANEU ####[address] [address] WBC 14.0 10 3/mcL High 4.5-10.8 [facility] Comment on above: Performed By: #### M G, PHOS, CAION, CMP, MYCO, GFR, CBC, TROPHS, ADIFF, ANEU ####[place] [address] CMPon 05-13-2024 CO2 [Moles/Vol] mmol/L Critically abnormal 22-32 [facility] Comment on above: Performed By: #### M G, PHOS, CAION, CMP, MYCO, GFR, CBC, TROPHS, ADIFF, ANEU ####[place] [address] Electrolyte Balance Unable to Calculate Normal 4.0-15. 0 [facility] Comment on above: Result Comment: Unab le to calculate this test result accurately. Results used to calculate this test are outside the reportable range. Performed By: #### M G, PHOS, CAION, CMP, MYCO, GFR, CBC, TROPHS, ADIFF, ANEU ####[place] [address] Albumin Level 2.7 G/dL Low 3.2-4.8 [facility] Comment on above: Performed By: #### M G, PHOS, CAION, CMP, MYCO, GFR, CBC, TROPHS, ADIFF, ANEU ####[place] [address] Albumin/Globulin [Mass ratio] 0.8 {ratio} Low 0.9-1.6 [facility] Comment on above: Performed By: #### M G, PHOS, CAION, CMP, MYCO, GFR, CBC, TROPHS, ADIFF, ANEU ####[place] [address] ALP [Catalytic activity/Vol] 94 U/L Normal 38-126 [facility] Comment on above: Performed By: #### M G, PHOS, CAION, CMP, MYCO, GFR, CBC, TROPHS, ADIFF, ANEU ####[address] [place] [address] ALT [Catalytic activity/Vol] 61 U/L High 10-49 [facility] Comment on above: Performed By: #### M G, PHOS, CAION, CMP, MYCO, GFR, CBC, TROPHS, ADIFF, ANEU ####[address] [address] AST [Catalytic activity/Vol] 59 U/L High 8-34 [facility] Comment on above: Performed By: #### M G, PHOS, CAION, CMP, MYCO, GFR, CBC, TROPHS, ADIFF, ANEU ####[address] [address] Bili Total 0.60 mg/dL Normal 0.20-1.20 [facility] Comment on above: Result Comment: Use of this assay is not recommended for patients undergoing treatment with eltrombopag due to the potential for falsely elevated results. Performed By: #### M G, PHOS, CAION, CMP, MYCO, GFR, CBC, TROPHS, ADIFF, ANEU ####[address] [address] BUN/Creatinine Ratio 54.9 ratio High 10.0-22.0 [facility] Comment on above: Performed By: #### M G, PHOS, CAION, CMP, MYCO, GFR, CBC, TROPHS, ADIFF, ANEU ####[address] [address] Calcium [Mass/Vol] 8.9 mg/dL Normal 8.7-10.4 [facility] Comment on above: Performed By: #### M G, PHOS, CAION, CMP, MYCO, GFR, CBC, TROPHS, ADIFF, ANEU ####[address] [address] Chloride [Moles/Vol] 95 mmol/L Low 98-110 [facility] Comment on above: Performed By: #### M G, PHOS, CAION, CMP, MYCO, GFR, CBC, TROPHS, ADIFF, ANEU ####[address] [address] Creatinine [Mass/Vol] 0.71 mg/dL Normal 0.50-1.20 [facility] Comment on above: Result Comment: Test ing performed on [employer] analyzer using enzymatic creatinine methodology. Performed By: #### M G, PHOS, CAION, CMP, MYCO, GFR, CBC, TROPHS, ADIFF, ANEU ####[address] [address] Globulin 3.4 G/dL Normal 1.5-3.8 [facility] Comment on above: Performed By: #### M G, PHOS, CAION, CMP, MYCO, GFR, CBC, TROPHS, ADIFF, ANEU ####[address] [address] Glucose [Mass/Vol] 125 mg/dL High 70-110 [facility] Comment on above: Performed By: #### M G, PHOS, CAION, CMP, MYCO, GFR, CBC, TROPHS, ADIFF, ANEU ####[address] [address] Potassium [Moles/Vol] 3.3 mmol/L Low 3.5-5.0 [facility] Comment on above: Performed By: #### M G, PHOS, CAION, CMP, MYCO, GFR, CBC, TROPHS, ADIFF, ANEU ####[address] [address] Sodium [Moles/Vol] 143 mmol/L Normal 136-145 [facility] Comment on above: Performed By: #### M G, PHOS, CAION, CMP, MYCO, GFR, CBC, TROPHS, ADIFF, ANEU ####[address] [address] Total Protein 6.1 G/dL Normal 5.7-8.2 [facility] Comment on above: Performed By: #### M G, PHOS, CAION, CMP, MYCO, GFR, CBC, TROPHS, ADIFF, ANEU ####[address] [address] Urea nitrogen [Mass/Vol] 39.0 mg/dL High 8.0-22.0 [facility] Comment on above: Performed By: #### M G, PHOS, CAION, CMP, MYCO, GFR, CBC, TROPHS, ADIFF, ANEU ####[facility] [place] [address] LABORATORYOrdered By: SYSTEM SYSTEM on 05-13-2024 Lactate [Moles/Vol] 1.0 mmol/L Normal 0.5 - 2. 2 mmol/L ADM SS Phosphate [Mass/Vol] 3.0 mg/dL Normal 2.4 - 5 .1 mg/dL ADM SS Comment on above: Interpretive Data: * *Note - New Reference Range in effect 19 Troponin I.cardiac DL <= 0.01 ng/mL [Mass/Vol] 38 ng/L High 0 - 34 ng/L ADM SS Comment on above: Interpretive Data: High Sensitive Troponin I Reference Ranges: Female: 0-34 ng/L Male: 0-54 ng/L Testing performed on [employer] IM analyzer using direct chemiluminescent technology. LABORATORYOrdered By: Colin hernandez on 05-13-2024 Blood Glucose Interventions Administered agent to increase blood sugar (05/13/24 8:00 AM) [facility] LABORATORYOrdered By: Nasra Manzano on 05-13-2024 Calcium Ionized 1.02 mmol/L Low 1.12 - 1.32 mmol/L Main Rapid Comm SS LABORATORYOrdered By: Lux Chavez on 05-13-2024 M. pneumoniae IgG IA Ql (S) Positive 30 *NA* (05/13/24 3:57 AM) Invalid Interpretation Code Auto Viro/Sero SS Comment on above: Interpretive Data: I NTERPRETATION OF MYCOPLASMA IgG BY EIA: Negative: No detectable M. pneumoniae IgG antibody. Positive: Mycoplasma pneumoniae IgG antibody Detected. Equivocal: Equivocal for IgG antibodies to Mycoplasma pneumoniae. Suggest repeat testing in 10-14 days. M. pneumoniae IgM IA Ql (S) Positive 29 *ABN* (05/13/24 3:57 AM) Invalid Interpretation Code Man Viro/Sero SS Comment on above: Interpretive Data: I NTERPRETATION OF MYCOPLASMA IgM: Negative: IgM to M. pneumoniae Absent, or at levels below the assay limit of detection. Positive: IgM to M. pneumoniae Present. Invalid: Test results are invalid due to invalid internal control. Assay was performed in duplicate. Repeat testing is suggested if clinically indicated. LABORATORYOrdered By: Annie Cavzaos on 05-13-2024 Adenovirus DNA DOV+non-probe Ql (Nph) Not Detected *NA* (05/13/24 2:44 AM) Invalid Interpretation Code Not Detected AH Auto Viro/Sero SS B. parapertussis [id number] DNA DOV+non-probe Ql (Nph) Not Detected *NA* (05/13/24 2:44 AM) Invalid Interpretation Code Not Detected AH Auto Viro/Sero SS B. pertussis toxin promoter region DOV+non-probe Ql (Nph) Not Detected *NA* (05/13/24 2:44 AM) Invalid Interpretation Code Not Detected AH Auto Viro/Sero SS C. pneumoniae DNA DOV+non-probe Ql (Nph) Not Detected *NA* (05/13/24 2:44 AM) Invalid Interpretation Code Not Detected AH Auto Viro/Sero SS FLUAV RNA DOV+non-probe Ql (Nph) Not Detected *NA* (05/13/24 2:44 AM) Invalid Interpretation Code Not Detected AH Auto Viro/Sero SS FLUBV RNA DOV+non-probe Ql (Nph) Not Detected *NA* (05/13/24 2:44 AM) Invalid Interpretation Code Not Detected AH Auto Viro/Sero SS hMPV RNA DOV+non-probe Ql (Nph) Not Detected *NA* (05/13/24 2:44 AM) Invalid Interpretation Code Not Detected AH Auto Viro/Sero SS M. pneumoniae DNA DOV+non-probe Ql (Nph) Not Detected *NA* (05/13/24 2:44 AM) Invalid Interpretation Code Not Detected AH Auto Viro/Sero SS MRSA (PCR) Not Detected (05/13/24 2:44 AM) Normal Not Detected AH Auto Viro/Sero SS MRSA PCR Int MRSA DNA not detecte d by Real-Time Polymerase Chain Reaction (PCR). A negative result may be due to intermittent colonization. Colonization may vary depending on patient treatment, patient status, or exposure to high-risk environments. As with all PCR based in vitro diagnostic tests, extremely low levels of target below the limit of detection of the assay may be detected, but results may not be reproducible. Invalid Interpretation Code AH Auto Viro/Sero SS Parainfluenza virus 1 RNA DOV+non-probe Ql (Nph) Not Detected *NA* (05/13/24 2:44 AM) Invalid Interpretation Code Not Detected AH Auto Viro/Sero SS Parainfluenza virus 2 RNA DOV+non-probe Ql (Nph) Not Detected *NA* (05/13/24 2:44 AM) Invalid Interpretation Code Not Detected AH Auto Viro/Sero SS Parainfluenza virus 3 RNA DOV+non-probe Ql (Nph) Not Detected *NA* (05/13/24 2:44 AM) Invalid Interpretation Code Not Detected AH Auto Viro/Sero SS Parainfluenza virus 4 RNA DOV+non-probe Ql (Nph) Not Detected *NA* (05/13/24 2:44 AM) Invalid Interpretation Code Not Detected AH Auto Viro/Sero SS Rhinovirus+Enteroviru s RNA DOV+non-probe Ql (Nph) Not Detected *NA* (05/13/24 2:44 AM) Invalid Interpretation Code Not Detected AH Auto Viro/Sero SS RSV RNA DOV+non-probe Ql (Nph) Not Detected *NA* (05/13/24 2:44 AM) Invalid Interpretation Code Not Detected AH Auto Viro/Sero SS SARS-CoV-2 (COVID-19) RNA DOV+probe Ql (Resp) Not Detected 7 *NA* (05/13/24 2:44 AM) Invalid Interpretation Code Not Detected AH Auto Viro/Sero SS Comment on above: Interpretive Data: T his assay has been validated in the [facility] for use with nasopharyngeal specimens in [facility] If a non-validated specimen or test collection method was used, please interpret the results with caution, especially if the test result is negative. A positive test result for COVID-19 indicates that RNA from SARS-CoV-2 was detected, and the patient is infected with the virus and presumed to be contagious. Laboratory test results should always be considered in the context of clinical observations and epidemiological data in making a final diagnosis and patient management decisions. Patient management should follow current CDC guidelines. A negative test result for this test means that SARS-CoV-2 RNA was not present in the specimen above the limit of detection. However, a negative result does not rule out COVID-19 and should not be used as the sole basis for treatment or patient management decisions. A negative result does not exclude the possibility of COVID-19. When diagnostic testing is negative, the possibility of a false negative result should be considered in the context of a patient's recent exposures and the presence of clinical signs and symptoms consistent with COVID-19. The possibility of a false negative result should especially be considered if the patient s recent exposures or clinical presentation indicate that COVID-19 is likely, and diagnostic tests for other causes of illness (e.g., other respiratory illness) are negative. If COVID-19 is still suspected based on exposure history together with other clinical findings, re-testing should be considered by healthcare providers in consultation with public health authorities. LABORATORYOrdered By: Mike Felipe on 05-13-2024 Appearance (U) Clear (05/13/24 2:44 AM) Normal Clear AH Auto Urine SS Bacteria LM.HPF (Urine sed) [#/Area] Trace /HPF Invalid Interpretation Code Negative AH Auto Urine SS Bilirubin Ql (U) Negative (05/13/24 2:44 AM) Normal Neg-Trace AH Auto Urine SS Color (U) Yellow (05/13/24 2:44 AM) Normal AH Auto Urine SS Crystals.amorphous LM.HPF (Urine sed) [#/Area] Trace /HPF Normal AH Auto Urine SS Glucose Test strip (U) [Mass/Vol] Negative Normal Negative AH Auto Urine SS Hemoglobin Auto test strip (U) [Mass/Vol] Large *ABN* (05/13/24 2:44 AM) Invalid Interpretation Code Neg-Trace AH Auto Urine SS Ketones Ql (U) Negative Normal Neg-Trace AH Auto Ur ine SS UA Coarse Granular Casts Rare /LPF Invalid Interpretation Code AH Auto Urine SS UA Leuk Est Small *ABN* (05/13/24 2:44 AM) Invalid Interpretation Code Negative AH Auto Urine SS UA Nitrite Negative (05/13/24 2:44 AM) Normal Negative AH Auto Urine SS UA pH 5.5 (05/13/24 2:44 AM) Normal 5.0 - 8.0 AH Auto Urine SS UA Protein Trace mg/dL Normal Negative AH Auto Urine SS UA RBC 25-50 /HPF Invalid Interpretation Code 0-2 AH Auto Urine SS UA Spec Grav 1.015 (05/13/24 2:44 AM) Normal 1.006-1.029 AH Auto Urine SS UA Specimen Type Beckwith Catheter (05/13/24 2:44 AM) Normal AH Auto Urine SS UA Squam Epithelial 3-5 /HPF Normal 0-20 AH Au to Urine SS UA Urobilinogen 0.2 E.U./dL Normal 0.2-1.0 AH Auto Urine SS WBC LM.HPF (Urine sed) [#/Area] 0-2 /HPF Normal 0-5 Auto Urine SS LACon 05-13-2024 Lactic Acid Lvl 1.0 mmol/L Normal 0.5-2.2 [facility] Comment on above: Performed By: #### L AC ####[place] [address] Lactic Acid Lvl 1.0 mmol/L Normal 0.5-2.2 [facility] Comment on above: Performed By: #### L AC ####[place] [address] Lactic Acid Lvl 2.5 mmol/L High 0.5-2.2 [facility] Comment on above: Performed By: #### L AC ####[place] [address] LUAon 05-13-2024 [facility] MGon 05-13-2024 Magnesium [Mass/Vol] 2.4 mg/dL Normal 1.6-2.4 [facility] Comment on above: Performed By: #### M G, GFR, BMP ####[place] [address] Magnesium [Mass/Vol] 2.4 mg/dL Normal 1.6-2.4 [facility] Comment on above: Performed By: #### M G, PHOS, CAION, CMP, MYCO, GFR, CBC, TROPHS, ADIFF, ANEU ####[place] [address] MRSAPCRon 05-13-2024 MRSA (PCR) Not detected Normal Not Detected [facility] Comment on above: Performed By: #### M RSAPCR ####[place] [address] MRSA PCR Int Normal [facility] Comment on above: Result Comment: MRSA DNA not detected by Real-Time Polymerase Chain Reaction (PCR). A negative result may be due to intermittent colonization. Colonization may vary depending on patient treatment, patient status, or exposure to high-risk environments.As with all PCR based in vitro diagnostic tests, extremely low levels of target below the limit of detection of the assay may be detected, but results may not be reproducible.See Below Performed By: #### M RSAPCR ####[place] [address] MYCOon 05-13-2024 Mycoplasma IgG Positive Normal [facility] Comment on above: Result Comment: INTE RPRETATION OF MYCOPLASMA IgG BY EIA: Negative: No detectable M. pneumoniae IgG antibody. Positive: Mycoplasma pneumoniae IgG antibody Detected. Equivocal: Equivocal for IgG antibodies to Mycoplasma pneumoniae. Suggest repeat testing in 10-14 days. Performed By: #### M G, PHOS, CAION, CMP, MYCO, GFR, CBC, TROPHS, ADIFF, ANEU ####[place] [address] Mycoplasma IgM Positive Abnormal [facility] Comment on above: Result Comment: INTE RPRETATION OF MYCOPLASMA IgM: Negative: IgM to M. pneumoniae Absent, or at levels below the assay limit of detection. Positive: IgM to M. pneumoniae Present. Invalid: Test results are invalid due to invalid internal control. Assay was performed in duplicate. Repeat testing is suggested if clinically indicated. Performed By: #### M G, PHOS, CAION, CMP, MYCO, GFR, CBC, TROPHS, ADIFF, ANEU ####[place] [address] No Panel Informationon 05-13 Legionella Urine Ag Presumptive negative for L. pneumophila serogroup 1 antigen in urine, suggesting no recent or current infection. Legionnaire's disease cannot be ruled out since other serogroups and species may also cause disease. [facility] Streptococcus Pneumoniae Urine Antig Presumptive negative for pneumococcal pneumonia, suggesting no current or recent pneumococcal infection. Infection due to Strep pneumoniae cannot be ruled out since the antigen present in the sample may be below the detection limit of the test. [facility] Comment on above: This test has not be en evaluated on patients taking antibiotics for greater than 24 hours or on patients who have recently completed an antibiotic regimen. The accuracy of this test has not been proven in young children. No Panel InformationOrdered By: Pily Oquendo on 05-13-2024 Blood Glucose Interventions Administered agent to increase blood sugar, Notify physician (05/13/24 1:05 AM) [facility] PHOSon 05-13-2024 Phosphate [Mass/Vol] 3.0 mg/dL Normal 2.4-5.1 [facility] Comment on above: Result Comment: No te - New Reference Range in effect 19 Performed By: #### M G, PHOS, CAION, CMP, MYCO, GFR, CBC, TROPHS, ADIFF, ANEU ####[place] [address] RESCVIDon 05-13-2024 Adenovirus Not detected Normal Not Detected [facility] Comment on above: Performed By: #### R ESCVID ####[place] [address] Bordetella Parapertussis Not detected Normal Not Detected [facility] Comment on above: Performed By: #### R ESCVID ####[place] [address] Bordetella Pertussis Not detected Normal Not Detected [facility] Comment on above: Performed By: #### R ESCVID ####[place] [address] Chlamydophila pneumoniae Not detected Normal Not Detected [facility] Comment on above: Performed By: #### R ESCVID ####[place] [address] Coronavirus 229E (Not COVID-19) Not detected Normal Not Detected [facility] Comment on above: Performed By: #### R ESCVID ####[place] [address] Coronavirus HKU1 (Not COVID-19) Not detected Normal Not Detected [facility] Comment on above: Performed By: #### R ESCVID ####[place] [address] [place] [address] Coronavirus NL63 (Not COVID-19) Not detected Normal Not Detected [facility] Comment on above: Performed By: #### R ESCVID ####[facility] [place] [address] Coronavirus OC43 (Not COVID-19) Not detected Normal Not Detected [facility] Comment on above: Performed By: #### R ESCVID ####[facility] [place] [address] Human Metapneumovirus Not detected Normal Not Detected [facility] Comment on above: Performed By: #### R ESCVID ####[facility] [place] [address] Influenza A Not detected Normal Not Detected [facility] Comment on above: Performed By: #### R ESCVID ####[place] [address] Influenza B Not detected Normal Not Detected [facility] Comment on above: Performed By: #### R ESCVID ####[facility] [place] [address] Mycoplasma pneumoniae Not detected Normal Not Detected [facility] Comment on above: Performed By: #### R ESCVID ####[facility] [place] [address] Parainfluenza 1 Not detected Normal Not Detected [facility] Comment on above: Performed By: #### R ESCVID ####[facility] [place] [address] Parainfluenza 2 Not detected Normal Not Detected [facility] Comment on above: Performed By: #### R ESCVID ####[facility] [place] [address] Parainfluenza 3 Not detected Normal Not Detected [facility] Comment on above: Performed By: #### R ESCVID ####[facility] [place] [address] Parainfluenza 4 Not detected Normal Not Detected [facility] Comment on above: Performed By: #### R ESCVID ####[place] [address] Respiratory Syncytial Virus Not detected Normal Not Detected [facility] Comment on above: Performed By: #### R ESCVID ####[place] [address] Rhinovirus/Enteroviru s Not detected Normal Not Detected [facility] Comment on above: Performed By: #### R ESCVID ####[place] [address] SARS-CoV-2 (COVID-19) RNA DOV+probe Ql (Unsp spec) Not detected Normal Not Detected [facility] Comment on above: Result Comment: This assay has been validated in the [facility] for use with nasopharyngeal specimens in [facility] If a non-validated specimen or test collection method was used, please interpret the results with caution, especially if the test result is negative.A positive test result for COVID-19 indicates that RNA from SARS-CoV-2 was detected, and the patient is infected with the virus and presumed to be contagious. Laboratory test results should always be considered in the context of clinical observations and epidemiological data in making a final diagnosis and patient management decisions. Patient management should follow current CDC guidelines. A negative test result for this test means that SARS-CoV-2 RNA was not present in the specimen above the limit of detection. However, a negative result does not rule out COVID-19 and should not be used as the sole basis for treatment or patient management decisions. A negative result does not exclude the possibility of COVID-19. When diagnostic testing is negative, the possibility of a false negative result should be considered in the context of a patient's recent exposures and the presence of clinical signs and symptoms consistent with COVID-19. The possibility of a false negative result should especially be considered if the patient???s recent exposures or clinical presentation indicate that COVID-19 is likely, and diagnostic tests for other causes of illness (e.g., other respiratory illness) are negative. If COVID-19 is still suspected based on exposure history together with other clinical findings, re-testing should be considered by healthcare providers in consultation with public health authorities. Performed By: #### R ESCVID ####[place] [address] SPAGon 05-13-[address] [facility] TROPHSon 05-13-2024 High Sensitivity Troponin I 38 ng/L High 0-34 [facility] Comment on above: Result Comment: High Sensitive Troponin I Reference Ranges:Female: 0-34 ng/LMale: 0-54 ng/LTesting performed on [employer] IM analyzer using direct chemiluminescent technology. Performed By: #### M G, PHOS, CAION, CMP, MYCO, GFR, CBC, TROPHS, ADIFF, ANEU ####[place] [address] UAon 05-13-2024 Color (U) Yellow Normal [facility] Comment on above: Performed By: #### U A, UAMIC ####[place] [address] Glucose (U) [Mass/Vol] Negative Normal Negative [facility] Comment on above: Performed By: #### U A, UAMIC ####[place] [address] Ketones Ql (U) Negative Normal Neg-Trace [facility] Comment on above: Performed By: #### U A, UAMIC ####[place] [address] UA Appear Clear Normal Clear [facility] Comment on above: Performed By: #### U A, UAMIC ####[place] [address] UA Blood Large Abnormal Neg-Trace [facility] Comment on above: Performed By: #### U A, UAMIC ####[place] [address] UA Leuk Est Small Abnormal Negative [facility] Comment on above: Performed By: #### U A, UAMIC ####[place] [address] UA Nitrite Negative Normal Negative [facility] Comment on above: Performed By: #### U A, UAMIC ####[place] [address] UA pH 5.5 Normal 5.0 - 8.0 [facility] Comment on above: Performed By: #### U A, UAMIC ####[place] [address] UA Protein Trace Normal Negative [facility] Comment on above: Performed By: #### U A, UAMIC ####[place] [address] UA Spec Grav 1.015 Normal 1.006-1.029 [facility] Comment on above: Performed By: #### U A, UAMIC ####[place] [address] UA Specimen Type Beckwith Catheter Normal [facility] Comment on above: Performed By: #### U A, UAMIC ####[place] [address] UA Urobilinogen 0.2 E.U./dL Normal 0.2-1.0 [facility] Comment on above: Performed By: #### U A, UAMIC ####[place] [address] Urobilinogen (U) [Mass/Vol] Negative Normal Neg-Trace [facility] Comment on above: Performed By: #### U A, UAMIC ####[place] [address] UAMICon 05-13-2024 UA Amorph[address] Trace Normal [facility] Comment on above: Performed By: #### U A, UAMIC ####[place] [address] UA Bacteria Trace Abnormal Negative [facility] Comment on above: Performed By: #### U A, UAMIC ####[place] [address] UA Coarse Granular Casts Rare Abnormal [facility] Comment on above: Performed By: #### U A, UAMIC ####[place] [address] UA RBC 25-50 Abnormal 0-2 [facility] Comment on above: Performed By: #### U A, UAMIC ####[place] [address] UA Squam Epithelial 3-5 Normal 0-20 [facility] Comment on above: Performed By: #### U A, UAMIC ####[facility] [place] [address] UA WBC 0-2 Normal 0-5 [facility] Comment on above: Performed By: #### U A, UAMIC ####[place] [address] [place] [id number] XR CHEST 1 VIEWon 05-13-2024 XR CHEST 1 VIEW Normal [facility] XR CHEST 1 VIEW Normal [facility] XR CHEST 1 VIEW Normal [facility] XR ENTERIC TUBE PLACEMENTon 05-13-2024 XR ENTERIC TUBE PLACEMENT Normal [facility] .Auto Diffon 05-12-2024 Basophil, Absolute 0.1 10 3/mcL Normal 0.0-0.2 [facility] Comment on above: Performed By: #### C BC, ANEU, GFR, PBNP, BMP, TROPHS, MG, MDW, ADIFF #### [address] [address] Basophils/100 WBC (Bld) 0.4 % Normal 0.0-2.5 [facility] Comment on above: Performed By: #### C BC, ANEU, GFR, PBNP, BMP, TROPHS, MG, MDW, ADIFF #### [address] [address] Eosinophil, Absolute 0.6 10 3/mcL Normal 0.0-0.7 [facility] Comment on above: Performed By: #### C BC, ANEU, GFR, PBNP, BMP, TROPHS, MG, MDW, ADIFF #### [address] [address] Eosinophils/100 WBC (Bld) 3.5 % Normal 0.0-7.0 [facility] Comment on above: Performed By: #### C BC, ANEU, GFR, PBNP, BMP, TROPHS, MG, MDW, ADIFF #### [address] [address] Lymphocyte, Absolute 1.4 10 3/mcL Normal 0.9-4.3 [facility] Comment on above: Performed By: #### C BC, ANEU, GFR, PBNP, BMP, TROPHS, MG, MDW, ADIFF #### [address] [address] Lymphocytes/100 WBC (Bld) 8.2 % Low 20.0-40.0 [facility] Comment on above: Performed By: #### C BC, ANEU, GFR, PBNP, BMP, TROPHS, MG, MDW, ADIFF #### [address] [address] Monocyte, Absolute 1.1 10 3/mcL Normal 0.1-1.4 [facility] Comment on above: Performed By: #### C BC, ANEU, GFR, PBNP, BMP, TROPHS, MG, MDW, ADIFF #### [address] [address] Monocytes/100 WBC (Bld) 6.6 % Normal 2.0-13.0 [facility] Comment on above: Performed By: #### C BC, ANEU, GFR, PBNP, BMP, TROPHS, MG, MDW, ADIFF #### [address] [address] Neutrophils/100 WBC (Bld) 81.3 % High 50.0-75.0 [facility] Comment on above: Performed By: #### C BC, ANEU, GFR, PBNP, BMP, TROPHS, MG, MDW, ADIFF #### [address] [address] .GFRon 05-12-2024 Estimated Glomerular Filtration Rate 58 ml/min/1.73sqm Normal [facility] Comment on above: Result Comment: Stages of Chronic Kidney Disease (CKD) Stage Description eGFR(ml/min/1.73 sq.m.) CKD 1 Normal kidney function or >=90 normal kindney function with possible kidney damage (ex. Proteinuria) CKD 2 Kidney damage with mild loss 60-89 of kidney function CKD 3a Mild to moderate loss of kidney 45-59 function CKD 3b Moderate to severe loss of 30-44 of kindey function CKD 4 Severe loss of kidney function 15-29 CKD 5 Kidney failure <15 Note: (go live 2024) the eGFR calculation was updated to the 2020 CKD-EPI creatinine equation without a race factor to calculate the eGFR results. Performed By: #### C BC, ANEU, GFR, PBNP, BMP, TROPHS, MG, MDW, ADIFF #### [place] [address] .MDWon 05-12-2024 Monocyte Distribution Width 20.86 High 0.00-20.00 [facility] Comment on above: Result Comment: For adults in ED, MDW>20.0 may be associated with a higher risk of sepsis during the first 12hrs of hospital admission The predictive value of MDW for identifying sepsis in patients with hematological abnormalities has not been established Performed By: #### C BC, ANEU, GFR, PBNP, BMP, TROPHS, MG, MDW, ADIFF #### [place] [address] .Morphon 05-12-2024 Platelet Estimate Normal Normal [facility] Comment on above: Performed By: #### C BC, ANEU, GFR, PBNP, BMP, TROPHS, MG, MDW, ADIFF #### [place] [address] RBC morphology finding Nom (Bld) Normal Normal [facility] Comment on above: Performed By: #### C BC, ANEU, GFR, PBNP, BMP, TROPHS, MG, MDW, ADIFF #### [place] [address] .NEUABSon 05-12-2024 Neutrophil, Absolute 14.0 10 3/mcL High 2.3-8.1 [facility] Comment on above: Performed By: #### C BC, ANEU, GFR, PBNP, BMP, TROPHS, MG, MDW, ADIFF #### [place] [address] CBCon 05-12-2024 Erythrocyte distribution width (RBC) [Ratio] 15.2 % Normal 11.5-15.5 [facility] Comment on above: Performed By: #### C BC, ANEU, GFR, PBNP, BMP, TROPHS, MG, MDW, ADIFF #### [place] [address] Hematocrit (Bld) [Volume fraction] 37.8 % Normal 34.0-46.0 [facility] Comment on above: Performed By: #### C BC, ANEU, GFR, PBNP, BMP, TROPHS, MG, MDW, ADIFF #### [place] [address] Hgb 11.9 G/dL Low 12.0-16.0 [facility] Comment on above: Performed By: #### C BC, ANEU, GFR, PBNP, BMP, TROPHS, MG, MDW, ADIFF #### [place] [address] MCH (RBC) [Entitic mass] 32.2 pg Normal 27.0-33.0 [facility] Comment on above: Performed By: #### C BC, ANEU, GFR, PBNP, BMP, TROPHS, MG, MDW, ADIFF #### [place] [address] MCHC 31.4 G/dL Low 32.0-36.0 [facility] Comment on above: Performed By: #### C BC, ANEU, GFR, PBNP, BMP, TROPHS, MG, MDW, ADIFF #### [place] [address] MCV (RBC) [Entitic vol] 102.6 fL High 80.0-99.0 [facility] Comment on above: Performed By: #### C BC, ANEU, GFR, PBNP, BMP, TROPHS, MG, MDW, ADIFF #### [place] [address] Platelet 222 10 3/mcL Normal 150-450 [facility] Comment on above: Performed By: #### C BC, ANEU, GFR, PBNP, BMP, TROPHS, MG, MDW, ADIFF #### [address] [address] Platelet mean volume (Bld) [Entitic vol] 9.2 fL Normal 6.6-10.5 [facility] Comment on above: Performed By: #### C BC, ANEU, GFR, PBNP, BMP, TROPHS, MG, MDW, ADIFF #### [address] [address] RBC 3.69 10 6/mcL Low 4.10-5.30 [facility] Comment on above: Performed By: #### C BC, ANEU, GFR, PBNP, BMP, TROPHS, MG, MDW, ADIFF #### [address] [address] WBC 17.2 10 3/mcL High 4.5-10.8 [facility] Comment on above: Performed By: #### C BC, ANEU, GFR, PBNP, BMP, TROPHS, MG, MDW, ADIFF #### [address] [address] CMPon 05-12-2024 Albumin Level 3.2 G/dL Low 3.5-5.0 [facility] Comment on above: Performed By: #### C BC, ANEU, GFR, PBNP, BMP, TROPHS, MG, MDW, ADIFF #### [address] [address] Albumin/Globulin [Mass ratio] 0.6 {ratio} Low 1.1-2.5 [facility] Comment on above: Performed By: #### C BC, ANEU, GFR, PBNP, BMP, TROPHS, MG, MDW, ADIFF #### [address] [address] ALP [Catalytic activity/Vol] 142 U/L High 40-135 [facility] Comment on above: Performed By: #### C BC, ANEU, GFR, PBNP, BMP, TROPHS, MG, MDW, ADIFF #### [address] [address] ALT [Catalytic activity/Vol] 76 U/L High 14-59 [facility] Comment on above: Performed By: #### C BC, ANEU, GFR, PBNP, BMP, TROPHS, MG, MDW, ADIFF #### [address] [address] AST [Catalytic activity/Vol] 73 U/L High 10-40 [facility] Comment on above: Performed By: #### C BC, ANEU, GFR, PBNP, BMP, TROPHS, MG, MDW, ADIFF #### [address] [address] Bili Total 0.7 mg/dL Normal 0.2-1.0 [facility] Comment on above: Result Comment: Use of this assay is not recommended for patients undergoing treatment with eltrombopag due to the potential for falsely elevated results. Performed By: #### C BC, ANEU, GFR, PBNP, BMP, TROPHS, MG, MDW, ADIFF #### [address] [address] BUN/Creatinine Ratio 40 ratio High 7-27 [facility] Comment on above: Performed By: #### C BC, ANEU, GFR, PBNP, BMP, TROPHS, MG, MDW, ADIFF #### [address] [address] Calcium [Mass/Vol] 9.3 mg/dL Normal 8.4-10.2 [facility] Comment on above: Performed By: #### C BC, ANEU, GFR, PBNP, BMP, TROPHS, MG, MDW, ADIFF #### [address] [address] Chloride [Moles/Vol] 95 mmol/L Low 98-107 [facility] Comment on above: Performed By: #### C BC, ANEU, GFR, PBNP, BMP, TROPHS, MG, MDW, ADIFF #### [address] [address] CO2 [Moles/Vol] 43 mmol/L Critically abnormal 22-29 [facility] Comment on above: Performed By: #### C BC, ANEU, GFR, PBNP, BMP, TROPHS, MG, MDW, ADIFF #### [address] [address] Creatinine [Mass/Vol] 1.20 mg/dL High 0.55-1.02 [facility] Comment on above: Result Comment: Test ing performed on Siemens Dimension EXL analyzer using a modified kinetic Melanie technique. Performed By: #### C BC, ANEU, GFR, PBNP, BMP, TROPHS, MG, MDW, ADIFF #### [address] [address] Electrolyte Balance 3.0 mEq/L Low 4.0-15.0 [facility] Comment on above: Performed By: #### C BC, ANEU, GFR, PBNP, BMP, TROPHS, MG, MDW, ADIFF #### [address] [address] Globulin 5.4 G/dL High 1.5-3.8 [facility] Comment on above: Performed By: #### C BC, ANEU, GFR, PBNP, BMP, TROPHS, MG, MDW, ADIFF #### [address] [address] Glucose [Mass/Vol] 107 mg/dL High 70-105 [facility] Comment on above: Performed By: #### C BC, ANEU, GFR, PBNP, BMP, TROPHS, MG, MDW, ADIFF #### [address] [address] Potassium [Moles/Vol] 5.1 mmol/L Normal 3.5-5.1 [facility] Comment on above: Performed By: #### C BC, ANEU, GFR, PBNP, BMP, TROPHS, MG, MDW, ADIFF #### [address] [address] Sodium [Moles/Vol] 141 mmol/L Normal 136-145 [facility] Comment on above: Performed By: #### C BC, ANEU, GFR, PBNP, BMP, TROPHS, MG, MDW, ADIFF #### [address] [address] Total Protein 8.6 G/dL High 6.4-8.2 [facility] Comment on above: Performed By: #### C BC, ANEU, GFR, PBNP, BMP, TROPHS, MG, MDW, ADIFF #### [address] [address] Urea nitrogen [Mass/Vol] 48 mg/dL High 7-18 [facility] Comment on above: Performed By: #### C BC, ANEU, GFR, PBNP, BMP, TROPHS, MG, MDW, ADIFF #### [address] [address] CVFLURVon 05-12-2024 FLU A PCR Negative Normal Negative [facility] Comment on above: Performed By: #### C BC, ANEU, GFR, PBNP, BMP, TROPHS, MG, MDW, ADIFF #### [address] [address] FLU B PCR Negative Normal Negative [facility] Comment on above: Performed By: #### C BC, ANEU, GFR, PBNP, BMP, TROPHS, MG, MDW, ADIFF #### [address] [address] RSV PCR Negative Normal Negative [facility] Comment on above: Performed By: #### C BC, ANEU, GFR, PBNP, BMP, TROPHS, MG, MDW, ADIFF #### [address] [address] SARS-CoV-2 (COVID-19) RNA DOV+probe Ql (Unsp spec) Negative Normal Negative [facility] Comment on above: Result Comment: Resu lts from the Xpert Xpress CoV-2/Flu/RSV plus test should be correlated with the clinical history, epidemiological data, and other data available to the clinical evaluating the patient. Performance of the Xpert Xpress CoV-2/Flu/RSV plus test has only been established in nasopharyngeal swab specimen. Erroneous test results might occur from improper specimen collection, failure to follow the recommended sample collection, handling and storage procedures, technical error, or sample mix-up. False negative results may occur if a virus is present at a level below the analytical limit of detection. Viral nucleic acid may persist in vivo, independent of virus viability. Detection of analyte target(s) does not imply that the corresponding virus(es) are infectious or are the causative agents for clinical symptoms. Recent patient exposure to FluMist or other live attenuated influenza vaccines may cause inaccurate positive results. Performed By: #### C BC, ANEU, GFR, PBNP, BMP, TROPHS, MG, MDW, ADIFF #### [address] [address] PBNPon 05-12-2024 Natriuretic peptide B (Bld) [Mass/Vol] 8761 pg/mL High 0-125 [facility] Comment on above: Result Comment: NT-p roBNP results of less than 300 pg/mL effectively rules out acute congestive heart failure with 99% negative predictive value. Performed By: #### C BC, ANEU, GFR, PBNP, BMP, TROPHS, MG, MDW, ADIFF #### [address] [address] TROPHSon 05-12-2024 High Sensitivity Troponin I 29 ng/L Normal 0-51 [facility] Comment on above: Result Comment: High Sensitive Troponin I Reference Ranges: Female: 0-51 ng/L Male: 0-76 ng/L Testing performed on [employer] using a homogeneous sandwich chemiluminescent immunoassay based on [employer] technology. Performed By: #### C BC, ANEU, GFR, PBNP, BMP, TROPHS, MG, MDW, ADIFF #### [address] [address] XR CHEST 1 VIEWon 05-12-2024 XR CHEST 1 VIEW ORIGINAL EXAMINATION: ONE XRAY VIEW OF THE CHEST05/12/2024 10:24 pm CHEST ONE VIEW AP/PA EXAM DESCRIPTION: COMPARISON: Chest, February 27, 2024 HISTORY: ORDERING SYSTEM PROVIDED HISTORY: Reason for Exam: SOB/cough/fever FINDINGS: Single AP radiograph of the chest was obtained. Diffuse patchy airspace opacities with indistinct pulmonary jennie. Endotracheal tube tip is 1.2 cm from the fadumo. Orogastric tube courses off the inferior aspect of the radiograph.. The cardiomediastinal silhouette is unremarkable. The bones and soft tissues are unremarkable. IMPRESSION: Endotracheal tube tip is 1.2 cm from the fadumo. Central venous pulmonary congestion with diffuse peribronchial thickening. Interpreted by: Praveen Johnson MD Preliminary Report By: Praveen Johnson MD Electronically signed By Praveen Johnson MD Dictated Date: 05/12/2024 10:31:44 PM Prelim Date: 05/12/2024 10:33:35 PM Sign Date: 05/12/2024 10:33:35 PM [facility] ) SIA ABDUL ([id number]) 1980 F Date Time Provider Department 05/10/24 1:40 PM MIKA KAPLAN During your visit today, we recorded the following information about you: Mika Kaplan APRN.CNP 05/10/2024 4:39 PM [facility] Patient presents with: Recheck: ER follow up, cellulitis HPI Louissugar Abdul is a 43 year old female who presents today for recent Hospital stay for cellulitis and anxiety Was at [facility] on 04/28-05/02 for exacerbation of CHF and is following with Dr. 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 Is on torsemide for this and another medicine she reports that start with an m she states she takes weekly. No recent medications starting with m filled recently that fit this description. Shortly after discharge her RLE became more swollen, blistered, red, and painful. Went to the ER on 05/08 and prescribed cephalexin for 10 days. Patient reports leg is still painful or sore. Mother feels it has decreased in its redness. Has small blister area to bottom inside of RLE that is starting to scab over. Denies fever, body aches, cough or wheezing. Concerns with anxious feelings. Is having trouble sleeping. [employer] bought her senior living last year and made changes which have not made her very trusting of them. Patient very negative with description of her current caretakers of her senior living. Feels they do not feel her well and swap out her food These reported changes have made for a poor diet she feels has impacted with her routine hospitalizations. Mother is aware of these concerns and state her renal case manager is looking into this. Sleep: difficulty staying asleep, difficulty falling asleep. Reports having to sleep with a light on. Has to sleep with a light on when she stays at her mothers house as well. Patient without a history of anxiety and never been on any anxiety or antidepressant type medications before. 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 NONE ALLERGIES Bee Sting, Bumex [Bumetanide], and Dilantin [Phenytoin Sodium Extended] MEDICATIONS sertraline (ZOLOFT) 25 mg tablet Take 1 tablet by mouth once daily. torsemide (DEMADEX) 20 mg tablet Take an extra 20 a day mgs In addition to current dose of 40 mgs 2 times on days you have more than 5 pounds of water weight gain fluticasone-vilanterol (BREO ELLIPTA) 100-25 mcg/dose inhaler Inhale 1 Inhalation as instructed once daily. IRAIDA 0.35 mg tablet Take 1 tablet by mouth once daily. EPINEPHrine (EPIPEN) 0.3 mg/0.3 mL auto-injector INJECT 1 PEN INTO LATERAL THIGH DIRECTED FOR ALLERGIC REACTIONS TO BEE/WASP STINGS MAY REPEAT IN 5-15 MINUTES IF SYMPTOMS PERSIST * *STAFF REORDER, 4 DAYS IN ADVANCE* torsemide (DEMADEX) 20 mg tablet Take 2 tablets by mouth two times a day. MEDICAL SUPPLY Lymphedema compression pump to both legs 1 hour daily. 60 mm Hg. New machine. mometasone-formoterol (DULERA) 100-5 mcg/actuation inhaler Inhale 2 Puffs as instructed two times a day. fluticasone (FLONASE) 50 mcg/actuation nasal spray INSTILL 2 SPRAYS IN EACH NOSTRIL DAILY diphenoxylate-atropine (LOMOTIL) 2.5-0.025 mg per tablet Take 1 tablet by mouth four times a day as needed. ondansetron (ZOFRAN) 4 mg tablet Take by mouth every 8 hours as needed for nausea/vomiting. aspirin 81 mg chewable tablet Take 81 mg by mouth once daily. carvedilol (COREG) 3.125 mg tablet Take 1 tablet by mouth two times a day. ammonium lactate (LAC-HYDRIN) 12 % cream APPLY TOPICALLY TO AFFECTED AREA(S) ON LEGS AT BEDTIME multivitamin-ferrous fumarate-folic acid (CERTAVITE-ANTIOXIDANT ) Take 1 tablet by mouth once daily. Sahen-8-HED-EPA-Fish Oil 1,000 mg (120 mg-180 mg) cap Take 1 capsule by mouth once daily. levothyroxine (SYNTHROID) 100 mcg tablet take one tablet by mouth daily one hour before breakfast nystatin (NYAMYC) powder APPLY TOPICALLY TWICE DAILY TO AFFECTED AREA(S) ON ABDOMINAL FOLDS OYSTER SHELL CALCIUM-VITAMIN D 500 mg-5 mcg (200 unit) per tablet take one tablet by mouth twice daily with meals clotrimazole (LOTRIMIN) 1 % cream APPLY TOPICALLY TO AF (more content not included)... Normal [facility] .Auto Diffon 05-08-2024 Basophil, Absolute 0.1 10 3/mcL Normal 0.0-0.2 [facility] Comment on above: Performed By: #### C BC, ANEU, GFR, PBNP, BMP, TROPHS, MG, MDW, ADIFF #### [address] [address] Basophils/100 WBC (Bld) 0.7 % Normal 0.0-2.5 [facility] Comment on above: Performed By: #### C BC, ANEU, GFR, PBNP, BMP, TROPHS, MG, MDW, ADIFF #### [address] [address] Eosinophil, Absolute 0.3 10 3/mcL Normal 0.0-0.7 [facility] Comment on above: Performed By: #### C BC, ANEU, GFR, PBNP, BMP, TROPHS, MG, MDW, ADIFF #### [address] [address] Eosinophils/100 WBC (Bld) 3.0 % Normal 0.0-7.0 [facility] Comment on above: Performed By: #### C BC, ANEU, GFR, PBNP, BMP, TROPHS, MG, MDW, ADIFF #### [address] [address] Lymphocyte, Absolute 1.3 10 3/mcL Normal 0.9-4.3 [facility] Comment on above: Performed By: #### C BC, ANEU, GFR, PBNP, BMP, TROPHS, MG, MDW, ADIFF #### [address] [address] Lymphocytes/100 WBC (Bld) 11.1 % Low 20.0-40.0 [facility] Comment on above: Performed By: #### C BC, ANEU, GFR, PBNP, BMP, TROPHS, MG, MDW, ADIFF #### [address] [address] Monocyte, Absolute 1.3 10 3/mcL Normal 0.1-1.4 [facility] Comment on above: Performed By: #### C BC, ANEU, GFR, PBNP, BMP, TROPHS, MG, MDW, ADIFF #### [address] [address] Monocytes/100 WBC (Bld) 11.2 % Normal 2.0-13.0 [facility] Comment on above: Performed By: #### C BC, ANEU, GFR, PBNP, BMP, TROPHS, MG, MDW, ADIFF #### [address] [address] Neutrophils/100 WBC (Bld) 74.0 % Normal 50.0-75.0 [facility] Comment on above: Performed By: #### C BC, ANEU, GFR, PBNP, BMP, TROPHS, MG, MDW, ADIFF #### [address] [address] .MDWon 05-08-2024 Monocyte Distribution Width 18.10 Normal 0.00-20.00 [facility] Comment on above: Result Comment: For ED adult patients suspected of sepsis, MDW<=20.0 does not rule out sepsis or risk of sepsis Performed By: #### C BC, ANEU, GFR, PBNP, BMP, TROPHS, MG, MDW, ADIFF #### [place] [address] .NEUABSon 05-08-2024 Neutrophil, Absolute 8.6 10 3/mcL High 2.3-8.1 [facility] Comment on above: Performed By: #### C BC, ANEU, GFR, PBNP, BMP, TROPHS, MG, MDW, ADIFF #### [place] [address] CBCon 05-08-2024 Erythrocyte distribution width (RBC) [Ratio] 15.1 % Normal 11.5-15.5 [facility] Comment on above: Performed By: #### C BC, ANEU, GFR, PBNP, BMP, TROPHS, MG, MDW, ADIFF #### [place] [address] Hematocrit (Bld) [Volume fraction] 38.2 % Normal 34.0-46.0 [facility] Comment on above: Performed By: #### C BC, ANEU, GFR, PBNP, BMP, TROPHS, MG, MDW, ADIFF #### [place] [address] Hgb 12.3 G/dL Normal 12.0-16.0 [facility] Comment on above: Performed By: #### C BC, ANEU, GFR, PBNP, BMP, TROPHS, MG, MDW, ADIFF #### [address] [address] MCH (RBC) [Entitic mass] 32.2 pg Normal 27.0-33.0 [facility] Comment on above: Performed By: #### C BC, ANEU, GFR, PBNP, BMP, TROPHS, MG, MDW, ADIFF #### [address] [address] MCHC 32.1 G/dL Normal 32.0-36.0 [facility] Comment on above: Performed By: #### C BC, ANEU, GFR, PBNP, BMP, TROPHS, MG, MDW, ADIFF #### [address] [address] MCV (RBC) [Entitic vol] 100.2 fL High 80.0-99.0 [facility] Comment on above: Performed By: #### C BC, ANEU, GFR, PBNP, BMP, TROPHS, MG, MDW, ADIFF #### [address] [address] Platelet 200 10 3/mcL Normal 150-450 [facility] Comment on above: Performed By: #### C BC, ANEU, GFR, PBNP, BMP, TROPHS, MG, MDW, ADIFF #### [address] [address] Platelet mean volume (Bld) [Entitic vol] 8.9 fL Normal 6.6-10.5 [facility] Comment on above: Performed By: #### C BC, ANEU, GFR, PBNP, BMP, TROPHS, MG, MDW, ADIFF #### [address] [address] RBC 3.81 10 6/mcL Low 4.10-5.30 [facility] Comment on above: Performed By: #### C BC, ANEU, GFR, PBNP, BMP, TROPHS, MG, MDW, ADIFF #### [facility] [address] [place], [place] [address] WBC 11.6 10 3/mcL High 4.5-10.8 [facility] Comment on above: Performed By: #### C BC, ANEU, GFR, PBNP, BMP, TROPHS, MG, MDW, ADIFF #### [facility] [address] [place], [place] [address] LABORATORYOrdered By: SYSTEM SYSTEM on 05-08-2024 Basophils (Bld) [#/Vol] 0.1 103/mcL Normal 0.0 - 0.2 10^3/mcL AO Workflow SS Basophils/100 WBC (Bld) 0.7 % Normal 0.0 - 2.5 % AO Workflow SS Eosinophil, Absolute 0.3 103/mcL Normal 0.0 - 0 .7 10^3/mcL AO Workflow SS Eosinophils/100 WBC (Bld) 3.0 % Normal 0.0 - 7.0 % AO Workflow SS Erythrocyte distribution width (RBC) [Ratio] 15.1 % Normal 11.5 - 15.5 % AO Workflow SS Hematocrit (Bld) [Volume fraction] 38.2 % Normal 34.0 - 46.0 % AO Workflow SS Hemoglobin (Bld) [Mass/Vol] 12.3 G/dL Normal 12.0 - 16.0 G/dL AO Workflow SS Lymphocytes (Bld) [#/Vol] 1.3 103/mcL Normal 0.9 - 4.3 10^3/mcL AO Workflow SS Lymphocytes/100 WBC (Bld) 11.1 % Low 20.0 - 40.0 % AO Workflow SS MCH (RBC) [Entitic mass] 32.2 pg Normal 27.0 - 33.0 pg AO Workflow SS MCHC 32.1 G/dL Normal 32.0 - 36.0 G/dL AO Workflow SS MCV (RBC) [Entitic vol] 100.2 fL High 80.0 - 99.0 fL AO Workflow SS Monocyte distribution width Auto (Bld) [Entitic vol] 18.10 1 Normal 0.00 - 20.00 AO Workflow SS Comment on above: Result Comment: For ED adult patients suspected of sepsis, MDW<=20.0 does not rule out sepsis or risk of sepsis Monocytes (Bld) [#/Vol] 1.3 103/mcL Normal 0.1 - 1.4 10^3/mcL AO Workflow SS Monocytes/100 WBC (Bld) 11.2 % Normal 2.0 - 13.0 % AO Workflow SS Neutrophils (Bld) [#/Vol] 8.6 103/mcL High 2.3 - 8.1 10^3/mcL AO Workflow SS Neutrophils/100 WBC (Bld) 74.0 % Normal 50.0 - 75.0 % AO Workflow SS Platelet mean volume (Bld) [Entitic vol] 8.9 fL Normal 6.6 - 10.5 fL AO Workflow SS Platelets (Bld) [#/Vol] 200 103/mcL Normal 150 - 450 10^3/mcL AO Workflow SS RBC (Bld) [#/Vol] 3.81 106/mcL Low 4.10 - 5.3 0 10^6/mcL AO Workflow SS WBC (Bld) [#/Vol] 11.6 103/mcL High 4.5 - 10.8 10^3/mcL AO Workflow SS No Panel Informationon 05-08 Microscopic examination of blood, culture Culture has been received in lab and is no growth to date. Routine cultures are held for 5 days. [facility] ACTH, PLASMAon 05-06-2024 ACTH, PLASMA 19 pg/mL Normal 6-50 [facility] Comment on above: Result Comment: Reference range applies only to specimens collected between 7am-10am. Performed By: #### 1 0314, 4212, 899, 866 #### [facility] [address] [facility], [address] [place] [address] Maintenance Analyst: Daniel Burt MD #### 211 #### [facility] [address] [facility] [place] [address] Maintenance Analyst: J Carlos Cedillo M.D.,PhD CORTISOL, A.M.on 05-06-2024 CORTISOL, A.M. 14.1 mcg/dL Normal [facility] Comment on above: Result Comment: Refe rence Range 8 a.m. (7-9 a.m.) Specimen: 4.0-22.0 Performed By: #### 1 0314, 4212, 899, 866 #### [facility] [address], [address] [place] [address] Maintenance Analyst: Daniel Burt MD #### 211 #### [facility]/[place] [id number] [facility] [place], [place] Maintenance Analyst: J Carlos Cedillo M.D.,PhD RENAL FUNCTION PANELon 05-06 Albumin [Mass/Vol] 4.2 g/dL Normal 3.6-5.1 [facility] Comment on above: Order Comment: FASTI NG:NO PATIENT NOT FASTING; ADVISED TO RETURN FOR COLLECTION. FASTING: NO Performed By: #### 1 0314, 421, 899, 866 #### [facility] [address], [address] [place] [address] Maintenance Analyst: Daniel Burt MD #### 211 #### [facility]/[address] [place], [place] Maintenance Analyst: J Carlos Cedillo M.D.,PhD BUN/CREATININE RATIO SEE NOTE: Normal 6-22 [facility] Comment on above: Order Comment: FASTI NG:NO PATIENT NOT FASTING; ADVISED TO RETURN FOR COLLECTION. FASTING: NO Result Comment: Not Reported: BUN and Creatinine are within reference range. Performed By: #### 1 031, 4211, 899, 866 #### [facility] [address], [address] [place] [address] Maintenance Analyst: Daniel Burt MD #### 211 #### [facility]/[place] [id number] [facility] [place], [place] Maintenance Analyst: J Carlos Cedillo M.D.,PhD Calcium [Mass/Vol] 9.2 mg/dL Normal 8.6-10.2 [facility] Comment on above: Order Comment: FASTI NG:NO PATIENT NOT FASTING; ADVISED TO RETURN FOR COLLECTION. FASTING: NO Performed By: #### 1 0314, 421, 899, 866 #### [facility] [address], [address] [place] [address] Maintenance Analyst: Daniel Burt MD #### 211 #### [facility]/[address] [place], [place] Maintenance Analyst: J Carlos Cedillo M.D.,PhD Chloride [Moles/Vol] 93 mmol/L Low 98-110 [facility] Comment on above: Order Comment: FASTI NG:NO PATIENT NOT FASTING; ADVISED TO RETURN FOR COLLECTION. FASTING: NO Performed By: #### 1 0314, 421, 899, 866 #### [facility] [address], [address] [place] [address] Maintenance Analyst: Daniel Burt MD #### 211 #### [facility]/[address] [place] Maintenance Analyst: J Carlos Cedillo M.D.,PhD CO2 [Moles/Vol] 38 mmol/L High 20-32 [facility] Comment on above: Order Comment: FASTI NG:NO PATIENT NOT FASTING; ADVISED TO RETURN FOR COLLECTION. FASTING: NO Performed By: #### 1 0314, 4211, 899, 866 #### [facility] [address], [address] [place], [place] [id number] Maintenance Analyst: Daniel Burt MD #### 211 #### [facility]/[address] [place], [place] Maintenance Analyst: J Carlos Cedillo M.D.,PhD Creatinine [Mass/Vol] 0.60 mg/dL Normal 0.50-0.[address] [facility] [address] [facility] Comment on above: Order Comment: FASTI NG:NO PATIENT NOT FASTING; ADVISED TO RETURN FOR COLLECTION. FASTING: NO Performed By: #### 1 0314, 421, 899, 866 #### [facility] [address], [address] [place] [address] Maintenance Analyst: Daniel Burt MD #### 211 #### [facility]/[address] [place], [place] Maintenance Analyst: J Carlos Cedillo M.D.,PhD GFR/1.73 sq M.predicted among non-blacks MDRD (S/P/Bld) [Vol rate/Area] 116 mL/min/{1.73_m2} Normal > OR = 60 [facility] Comment on above: Order Comment: FASTI NG:NO PATIENT NOT FASTING; ADVISED TO RETURN FOR COLLECTION. FASTING: NO Performed By: #### 1 0314, 4212, 899, 866 #### [facility] [address], [address] [place], [place] [id number] Maintenance Analyst: Daniel Burt MD #### 211 #### [facility]/[address] [place] Maintenance Analyst: J Carlos Cedillo M.D.,PhD Glucose [Mass/Vol] 71 mg/dL Normal 65-139 [facility] Comment on above: Order Comment: FASTI NG:NO PATIENT NOT FASTING; ADVISED TO RETURN FOR COLLECTION. FASTING: NO Result Comment: Non-fasting reference interval Performed By: #### 1 0314, 421, 899, 866 #### [facility] [address], [address] [place], [place] [id number] Maintenance Analyst: Daniel Burt MD #### 211 #### [facility]/[address] [place], [place] Maintenance Analyst: J Carlos Cedillo M.D.,PhD Phosphate [Mass/Vol] 4.2 mg/dL Normal 2.5-4.5 [facility] Comment on above: Order Comment: FASTI NG:NO PATIENT NOT FASTING; ADVISED TO RETURN FOR COLLECTION. FASTING: NO Performed By: #### 1 0314, 4212, 899, 866 #### [facility] [address], [address] [place], [place] [id number] Maintenance Analyst: Daniel Burt MD #### 211 #### [facility] [address] [place] Maintenance Analyst: J Carlos Cedillo M.D.,PhD Potassium [Moles/Vol] 4.2 mmol/L Normal 3.5-5.3 [facility] Comment on above: Order Comment: FASTI NG:NO PATIENT NOT FASTING; ADVISED TO RETURN FOR COLLECTION. FASTING: NO Performed By: #### 1 0314, 4212, 899, 866 #### [facility] [address], [address] [place], [place] [id number] Maintenance Analyst: Daniel Burt MD #### 211 #### [facility] [address] [place] Maintenance Analyst: J Carlos Cedillo M.D.,PhD Sodium [Moles/Vol] 143 mmol/L Normal 135-146 [facility] Comment on above: Order Comment: FASTI NG:NO PATIENT NOT FASTING; ADVISED TO RETURN FOR COLLECTION. FASTING: NO Performed By: #### 1 0314, 421, 899, 866 #### [facility] [address], [address] [place], [place] [id number] Maintenance Analyst: Daniel Burt MD #### 211 #### [facility] [address] [place] Maintenance Analyst: J Carlos Cedillo M.D.,PhD Urea nitrogen [Mass/Vol] 18 mg/dL Normal 7-25 [facility] Comment on above: Order Comment: FASTI NG:NO PATIENT NOT FASTING; ADVISED TO RETURN FOR COLLECTION. FASTING: NO Performed By: #### 1 0314, 4212, 899, 866 #### [facility] [address], [address] [place], [place] [phone] Maintenance Analyst: Daniel Burt MD #### 211 #### [facility] [address] [place] Maintenance Analyst: J Carlos Cedillo M.D.,PhD T4, FREE 05-06-2024 Free T4 [Mass/Vol] 1.5 ng/dL Normal 0.8-1.8 [facility] Comment on above: Performed By: #### 1 0314, 4212, 899, 866 #### [facility] [place] [address] Maintenance Analyst: Daniel Burt MD #### 211 #### [facility]/[address] [place] Maintenance Analyst: J Carlos Cedillo M.D.,PhD TSH 05-06-2024 TSH Qn 4.14 m[IU]/L Normal [facility] Comment on above: Result Comment: Refe rence Range > or = 20 Years 0.40-4.50 Ranges First trimester 0.26-2.66 Second trimester 0.55-2.73 Third trimester 0.43-2.91 Performed By: #### 1 0314, 4212, 899, 866 #### [facility] [address] Maintenance Analyst: Daniel Burt MD #### 211 #### [facility]/[address] [place], [place] Maintenance Analyst: J Carlos Cedillo M.D.,PhD [facility] 05-05-2024 [facility] Telephone (INTWS) SIA ABDUL ([id number]) 1980 F Date Time Provider Department 05/05/24 MARILEE THAKUR INTWS During your visit today, we recorded the following information about you: Candelaria Ball LPN 05/05/2024 3:31 PM Signed Leia from [facility] calling asking for a new verbal order for PT plan of care 2 visits weekly for 4 weeks, please. Please advise Mika Kaplan APRN.OBED 05/06/2024 8:06 AM Signed Agree with order for PT. Thank you Mika Kaplan APRN.MANAGER HOTEL AustinMaría russellCOMFORT 05/06/2024 8:18 AM Signed Leia notified. Allergies As of Date: 05/05/2024 Noted Allergy Reaction BEE STING 02/28/2023 10 - Anaphylaxis BUMEX (BUMETANIDE) 03/12/2024 6 - Diarrhea 14 - Other: See Comments Comments: chula PARMAR (PHENYTOIN SODIUM EXTEND*01/28/2006 Date Reviewed: 04/06/2024 Reviewed by: Kim Germain OCCA - Fully Assessed Reason for Visit: requesting verbal order [Other] Prescriptions as of 05/06/2024 - torsemide (DEMADEX) 20 mg tablet Take an extra 20 a day mgs In addition to current dose of 40 mgs 2 times on days you have more than 5 pounds of water weight gain - fluticasone-vilanterol (BREO ELLIPTA) 100-25 mcg/dose inhaler Inhale 1 Inhalation as instructed once daily. - IRAIDA 0.35 mg tablet Take 1 tablet by mouth once daily. - EPINEPHrine (EPIPEN) 0.3 mg/0.3 mL auto-injector INJECT 1 PEN INTO LATERAL THIGH DIRECTED FOR ALLERGIC REACTIONS TO BEE/WASP STINGS MAY REPEAT IN 5-15 MINUTES IF SYMPTOMS PERSIST * *STAFF REORDER, 4 DAYS IN ADVANCE* - torsemide (DEMADEX) 20 mg tablet Take 2 tablets by mouth two times a day. - MEDICAL SUPPLY Lymphedema compression pump to both legs 1 hour daily. 60 mm Hg. New machine. - mometasone-formoterol (DULERA) 100-5 mcg/actuation inhaler Inhale 2 Puffs as instructed two times a day. - fluticasone (FLONASE) 50 mcg/actuation nasal spray INSTILL 2 SPRAYS IN EACH NOSTRIL DAILY - diphenoxylate-atropine (LOMOTIL) 2.5-0.025 mg per tablet Take 1 tablet by mouth four times a day as needed. - ondansetron (ZOFRAN) 4 mg tablet Take by mouth every 8 hours as needed for nausea/vomiting. - aspirin 81 mg chewable tablet Take 81 mg by mouth once daily. - carvedilol (COREG) 3.125 mg tablet Take 1 tablet by mouth two times a day. - ammonium lactate (LAC-HYDRIN) 12 % cream APPLY TOPICALLY TO AFFECTED AREA(S) ON LEGS AT BEDTIME - multivitamin-ferrous fumarate-folic acid (CERTAVITE-ANTIOXIDANT ) Take 1 tablet by mouth once daily. - Xzxpn-2-OZD-EPA-Fish Oil 1,000 mg (120 mg-180 mg) cap Take 1 capsule by mouth once daily. - levothyroxine (SYNTHROID) 100 mcg tablet take one tablet by mouth daily one hour before breakfast - nystatin (NYAMYC) powder APPLY TOPICALLY TWICE [...] as needed for wheezing/shortness of breath. - acetaminophen (TYLENOL EXTRA STRENGTH) 500 mg tablet Take 2 tablets by mouth every 8 hours as needed for pain (For knee pain). - Gauze Bandage 2 X 2 bndg Apply 1 application to affected area twice daily. - cetirizine (ZYRTEC) 10 mg tablet Take [...] 4pm Dx:Q87.1 Problem List As Of Date 05/05/2024 Noted Resolved Other malaise and fatigue [R53.81, [...] (peripheral) [I8*12/14/2014 Acquired hypothyroidism [E03.9] 12/14/2014 Obstructive sl (more content not included)... Normal [facility] No Panel Informationon 05-05 FASTING:NO PATIENT NOT FASTING; ADVISED TO RETURN FOR COLLECTION. FASTING: NO [facility] Renal function 2000 panelon 05-05-2024 Albumin [Mass/Vol] 4.2 g/dL 3.6 - 5.1 g/dL [facility] Calcium [Mass/Vol] 9.2 mg/dL 8.6 - 10. 2 mg/dL [facility] Chloride [Moles/Vol] 93 mmol/L Low 98 - 11 0 mmol/L [facility] CO2 [Moles/Vol] 38 mmol/L High 20 - 32 mmol/L [facility] Creatinine [Mass/Vol] 0.6 mg/dL 0.50 - 0.99 mg/dL [facility] GFR/1.73 sq M.predicted among non-blacks MDRD (S/P/Bld) [Vol rate/Area] 116 mL/min/{1.73_m2} > OR = 60 mL/min/1.73m 2 [facility] Glucose [Mass/Vol] 71 mg/dL 65 - 139 mg/dL [facility] Comment on above: Non-fasting reference interval Interpretation and review of laboratory results Abnormal [facility] Phosphate [Mass/Vol] 4.2 mg/dL 2.5 - 4 .5 mg/dL [facility] Potassium [Moles/Vol] 4.2 mmol/L 3.5 - 5.3 mmol/L [facility] Sodium [Moles/Vol] 143 mmol/L 135 - 146 mmol/L [facility] Urea nitrogen [Mass/Vol] 18 mg/dL 7 - 25 mg/dL [facility] Urea nitrogen/Creatinine [Mass ratio] SEE NOTE: [facility] Comment on above: Not Reported: BUN an d Creatinine are within reference range. Thyroid Stimulating Hormoneo n 05-05-2024 TSH Qn 4.14 m[IU]/L mIU/L [facility] Comment on above: Reference Range > or = 20 Years 0.40-4.50 Ranges First trimester 0.26-2.66 Second trimester 0.55-2.73 Third trimester 0.43-2.91 Thyroxine, Freeon 05-05-2024 Free T4 [Mass/Vol] 1.5 ng/dL 0.8 - 1.8 ng/dL [facility] POCT glycosylated hemoglobin (Hb A1C) manually resultedon 05-04-2024 HbA1c (Bld) [Mass fraction] 5.4 % 4.2 - 6.5 % [facility] Work Phone: [facility] Work Phone: Basic Metabolic Profile (BMP )on 05-03-2024 BUN Normal 7-18 [facility] Comment on above: Result Comment: Canc elled via OM: Order cancelled - Patient discharged Performed By: #### L 500.2500 ####[facility] [address] [place], [address] BUN/CRE Normal 10-20 [facility] Comment on above: Result Comment: Canc elled via OM: Order cancelled - Patient discharged Performed By: #### L 500.2500 ####[facility] [address] [place], [address] CA,Total Normal 8.5-10.1 [facility] Comment on above: Result Comment: Canc elled via OM: Order cancelled - Patient discharged Performed By: #### L 500.2500 ####[facility] [address] [place], [address] CL Normal 98-107 [facility] Comment on above: Result Comment: Canc elled via OM: Order cancelled - Patient discharged Performed By: #### L 500.2500 ####[facility] [address] [place], [address] CO2 Normal 21.0-32.0 [facility] Comment on above: Result Comment: Canc elled via OM: Order cancelled - Patient discharged Performed By: #### L 500.2500 ####[facility] [address] [place], [address] CREAT,SERUM Normal 0.55-1.02 [facility] Comment on above: Result Comment: Canc elled via OM: Order cancelled - Patient discharged Performed By: #### L 500.2500 ####[facility] [address] [place], [address] EST GFR Normal >60 [facility] Comment on above: Result Comment: Canc elled via OM: Order cancelled - Patient discharged Performed By: #### L 500.2500 ####[facility] [address] [place], [address] EST GFR - AA Normal >60 [facility] Comment on above: Result Comment: Canc elled via OM: Order cancelled - Patient discharged Performed By: #### L 500.2500 ####[facility] [address], [address] GAP Normal 5-15 [facility] Comment on above: Result Comment: Canc elled via OM: Order cancelled - Patient discharged Performed By: #### L 500.2500 ####[facility] [address] [place], [address] GLU Normal 74-106 [facility] Comment on above: Result Comment: Canc elled via OM: Order cancelled - Patient discharged Performed By: #### L 500.2500 ####[facility] [address] [place], [address] Potassium Normal 3.5-5.1 [facility] Comment on above: Result Comment: Canc elled via OM: Order cancelled - Patient discharged Performed By: #### L 500.2500 ####[facility] [address] [place], [address] Basic Metabolic Profile (BMP) Normal 136-145 [facility] Comment on above: Result Comment: Canc elled via OM: Order cancelled - Patient discharged Performed By: #### L 500.2500 ####[facility] [address] [place], [address] Basic Metabolic Profile (BMP )on 05-02-2024 BUN/CRE 46.7 RATIO High 10-20 [facility] Comment on above: Performed By: #### L 500.2500 ####[facility] [address] [place], [address] CA,Total 8.4 mg/dL Low 8.5-10.1 [facility] Comment on above: Performed By: #### L 500.2500 ####[facility] [address] [place], [address] Chloride [Moles/Vol] 101 mmol/L Normal 98-107 [facility] Comment on above: Performed By: #### L 500.2500 ####[facility] [address] [place], [address] CO2 [Moles/Vol] 40.0 mmol/L High 21.0-32.0 [facility] Comment on above: Performed By: #### L 500.2500 ####[facility] [address] [place], [address] Creatinine [Mass/Vol] 0.36 mg/dL Low 0.55-1.02 [facility] Comment on above: Result Comment: The validity of the calculated GFR GFRAA in patients over70 years has not been determined. Clinical correlation isessential. Performed By: #### L 500.2500 ####[facility] [address] [place], [address] ECRCL 266.93 ml/min Normal [facility] Comment on above: Performed By: #### L 500.2500 ####[facility] [address] [place], [address] EST GFR - AA 251 mL/min Normal >60 [facility] Comment on above: Result Comment: Afri can [place] GFR Calc Performed By: #### L 500.2500 ####[facility] [address] [place], [address] GAP 5 Normal 5-15 [facility] Comment on above: Performed By: #### L 500.2500 ####[facility] [address] [place], [address] GFR/1.73 sq M.predicted among non-blacks MDRD (S/P/Bld) [Vol rate/Area] 208 mL/min/{1.73_m2} Normal >60 [facility] Comment on above: Result Comment: Non- GFR Calc Performed By: #### L 500.2500 ####[facility] [address] [place], [address] Glucose [Mass/Vol] 83 mg/dL Normal 74-106 [facility] Comment on above: Performed By: #### L 500.2500 ####[facility] [address] [place], [address] Potassium [Moles/Vol] 4.6 mmol/L Normal 3.5-5.1 [facility] Comment on above: Performed By: #### L 500.2500 ####[facility] [address] [place], [address] Sodium [Moles/Vol] 145 mmol/L Normal 136-145 [facility] Comment on above: Performed By: #### L 500.2500 ####[facility] [address] [place], [address] Urea nitrogen [Mass/Vol] 17 mg/dL Normal 7-18 [facility] Comment on above: Performed By: #### L 500.2500 ####[facility] [address] [place], [address] Discharge Instructionon 04-11 Discharge Instruction Normal [facility] Basic Metabolic Profile (BMP )on 05-01-2024 BUN/CRE 40.4 RATIO High 10-20 [facility] Comment on above: Performed By: #### L 100.0500, L500.2500 ####[facility] [address] [place], [address] CA,Total 8.5 mg/dL Normal 8.5-10.1 [facility] Comment on above: Performed By: #### L 100.0500, L500.2500 ####[facility] [address] [place], [address] Chloride [Moles/Vol] 99 mmol/L Normal 98-107 [facility] Comment on above: Performed By: #### L 100.0500, L500.2500 ####[facility] [address] [place], [address] CO2 [Moles/Vol] 43.0 mmol/L High 21.0-32.0 [facility] Comment on above: Performed By: #### L 100.0500, L500.2500 ####[facility] [address] [place], [address] Creatinine [Mass/Vol] 0.45 mg/dL Low 0.55-1.02 [facility] Comment on above: Result Comment: The validity of the calculated GFR GFRAA in patients over70 years has not been determined. Clinical correlation isessential. Performed By: #### L 100.0500, L500.2500 ####[facility] [address] [place], [address] ECRCL 213.54 ml/min Normal [facility] Comment on above: Performed By: #### L 100.0500, L500.2500 ####[facility] [address] [place], [address] EST GFR - AA 199 mL/min Normal >60 [facility] Comment on above: Result Comment: Afri can [place] GFR Calc Performed By: #### L 100.0500, L500.2500 ####[facility] [address] [place], [address] GAP 0 Low 5-15 [facility] Comment on above: Performed By: #### L 100.0500, L500.2500 ####[facility] [address] [place], [address] GFR/1.73 sq M.predicted among non-blacks MDRD (S/P/Bld) [Vol rate/Area] 164 mL/min/{1.73_m2} Normal >60 [facility] Comment on above: Result Comment: Non- GFR Calc Performed By: #### L 100.0500, L500.2500 ####[facility] [address] [place], [address] Glucose [Mass/Vol] 82 mg/dL Normal 74-106 [facility] Comment on above: Performed By: #### L 100.0500, L500.2500 ####[facility] [address] [place], [address] Potassium [Moles/Vol] 3.9 mmol/L Normal 3.5-5.1 [facility] Comment on above: Performed By: #### L 100.0500, L500.2500 ####[facility] [address] [place], [address] Sodium [Moles/Vol] 142 mmol/L Normal 136-145 [facility] Comment on above: Performed By: #### L 100.0500, L500.2500 ####[facility] [address] [place], [address] Urea nitrogen [Mass/Vol] 18 mg/dL Normal 7-18 [facility] Comment on above: Performed By: #### L 100.0500, L500.2500 ####[facility] [address] [place], [address] CBC-Complete Blood Cnt No Di ffon 05-01-2024 Erythrocyte distribution width (RBC) [Ratio] 14.6 % Normal 11.6-14.6 [facility] Comment on above: Performed By: #### L 100.0500, L500.2500 ####[facility] [address] [place], [address] Hematocrit (Bld) [Volume fraction] 36.8 % Low 37-47 [facility] Comment on above: Performed By: #### L 100.0500, L500.2500 ####[facility] [address] [place], [address] Hemoglobin (Bld) [Mass/Vol] 10.7 g/dL Low 12.0-15.0 [facility] Comment on above: Performed By: #### L 100.0500, L500.2500 ####[facility] [address] [place], [address] MCH (RBC) [Entitic mass] 31.4 pg Normal 27.0-32.0 [facility] Comment on above: Performed By: #### L 100.0500, L500.2500 ####[facility] [address] [place], [address] MCHC (RBC) [Mass/Vol] 29.1 g/dL Low 32-36 [facility] Comment on above: Performed By: #### L 100.0500, L500.2500 ####[facility] [address] [place], [address] MCV (RBC) [Entitic vol] 107.9 fL High 81-99 [facility] Comment on above: Performed By: #### L 100.0500, L500.2500 ####[facility] [address] [place], [address] Platelet mean volume (Bld) [Entitic vol] 12.0 fL Normal 6.2-12.0 [facility] Comment on above: Performed By: #### L 100.0500, L500.2500 ####[facility] [address] [place], [address] Platelets (Bld) [#/Vol] 145 10*3/uL Low 150-450 [facility] Comment on above: Performed By: #### L 100.0500, L500.2500 ####[facility] [address] [place], [address] RBC (Bld) [#/Vol] 3.41 10*6/uL Low 4.2-5.4 [facility] Comment on above: Performed By: #### L 100.0500, L500.2500 ####[facility] [address] [place], [address] RDW SD 57.2 fl High 35.1-43.9 [facility] Comment on above: Performed By: #### L 100.0500, L500.2500 ####[facility] [address] [place], [address] WBC (Bld) [#/Vol] 11.7 10*3/uL High 4.4-11.0 [facility] Comment on above: Performed By: #### L 100.0500, L500.2500 ####[facility] [address] [place], [address] Basic Metabolic Profile (BMP )on 04-30-2024 BUN/CRE 38.7 RATIO High 10-20 [facility] Comment on above: Performed By: #### L 500.2500 ####[facility] [address] [place], [address] CA,Total 8.5 mg/dL Normal 8.5-10.1 [facility] Comment on above: Performed By: #### L 500.2500 ####[facility] [address] [place], [address] Chloride [Moles/Vol] 100 mmol/L Normal 98-107 [facility] Comment on above: Performed By: #### L 500.2500 ####[facility] [address] [place], [address] CO2 [Moles/Vol] 41.0 mmol/L High 21.0-32.0 [facility] Comment on above: Performed By: #### L 500.2500 ####[facility] [address] [place], [address] Creatinine [Mass/Vol] 0.49 mg/dL Low 0.55-1.02 [facility] Comment on above: Result Comment: The validity of the calculated GFR GFRAA in patients over70 years has not been determined. Clinical correlation isessential. Performed By: #### L 500.2500 ####[facility] [address] [place], [address] ECRCL 196.76 ml/min Normal [facility] Comment on above: Performed By: #### L 500.2500 ####[facility] [address] [place], [address] EST GFR - AA 178 mL/min Normal >60 [facility] Comment on above: Result Comment: Afri can [place] GFR Calc Performed By: #### L 500.2500 ####[facility] [address] [place], [address] GAP 3 Low 5-15 [facility] Comment on above: Performed By: #### L 500.2500 ####[facility] [address] [place], [address] GFR/1.73 sq M.predicted among non-blacks MDRD (S/P/Bld) [Vol rate/Area] 147 mL/min/{1.73_m2} Normal >60 [facility] Comment on above: Result Comment: Non- GFR Calc Performed By: #### L 500.2500 ####[facility] [address] [place], [address] Glucose [Mass/Vol] 96 mg/dL Normal 74-106 [facility] Comment on above: Performed By: #### L 500.2500 ####[facility] [address] [place], [address] Potassium [Moles/Vol] 4.0 mmol/L Normal 3.5-5.1 [facility] Comment on above: Performed By: #### L 500.2500 ####[facility] [address] [place], [address] Sodium [Moles/Vol] 144 mmol/L Normal 136-145 [facility] Comment on above: Performed By: #### L 500.2500 ####[facility] [address] [place], [address] Urea nitrogen [Mass/Vol] 19 mg/dL High 7-18 [facility] Comment on above: Performed By: #### L 500.2500 ####[facility] [address] [place], [address] Lipid Profileon 04-30-2024 Cholesterol [Mass/Vol] 137 mg/dL Normal 200 [facility] Comment on above: Result Comment: <200 mg/dL Desirable 200-240 mg/dL Borderline >240 mg/dL High Risk Performed By: #### L 500.4100 ####[facility] [address] [place], [address] Cholesterol in HDL [Mass/Vol] 49 mg/dL Normal [facility] Comment on above: Result Comment: The drugs N-Acetylcysteine and Metamizole may falselydepress this assay. Reference Range HDL <40 mg/dL Low HDL Cholesterol HDL >or= 60 mg/dL High HDL Cholesterol Performed By: #### L 500.4100 ####[facility] [address] [place], [address] Cholesterol in LDL [Mass/Vol] 76 mg/dL Normal 0-130 [facility] Comment on above: Performed By: #### L 500.4100 ####[facility] [address] [place], [address] Cholesterol in VLDL [Mass/Vol] 12 mg/dL Normal 5-40 [facility] Comment on above: Performed By: #### L 500.4100 ####[facility] [address] [place], [address] Triglyceride [Mass/Vol] 62 mg/dL Normal [facility] Comment on above: Result Comment: The drugs N-Acetylcysteine and Metamizole may falselydepress this assay.Serum Triglycerides Reference Interval Normal <150 mg/dL Borderline high 150 - 199 mg/dL High 200 - 499 mg/dL Very High > or = 500 mg/dL Performed By: #### L 500.4100 ####[facility] [address] [place], [address] BNP,B-Type NATRIURETIC PEPTI Christa 04-29-2024 Natriuretic peptide B (Bld) [Mass/Vol] 277.4 pg/mL High 0-100 [facility] Comment on above: Performed By: #### L 503.6620 ####[facility] [address] [place], [address] CBC W/Diff, Automatedon 02-2 0-2024 Absolute Lymph 2.29 X10 3/uL Normal 0.83-4.51 [facility] Comment on above: Performed By: #### L 100.0100, L501.9520, L500.4050 ####[facility] [address] [place], [address] Absolute Neut 8.2 X10 3/uL High 2.0-7.7 [facility] Comment on above: Performed By: #### L 100.0100, L501.9520, L500.4050 ####[facility] [address] [place], [address] Basophils/100 WBC (Bld) 0.6 % Normal 0-1 [facility] Comment on above: Performed By: #### L 100.0100, L501.9520, L500.4050 ####[facility] [address] [place], [address] Eosinophils/100 WBC (Bld) 3.6 % Normal 0-5 [facility] Comment on above: Performed By: #### L 100.0100, L501.9520, L500.4050 ####[facility] [address] [place], [address] Erythrocyte distribution width (RBC) [Ratio] 14.8 % High 11.6-14.6 [facility] Comment on above: Performed By: #### L 100.0100, L501.9520, L500.4050 ####[facility] [address] [place], [address] Hematocrit (Bld) [Volume fraction] 34.6 % Low 37-47 [facility] Comment on above: Performed By: #### L 100.0100, L501.9520, L500.4050 ####[facility] [address] [place], [address] Hemoglobin (Bld) [Mass/Vol] 10.5 g/dL Low 12.0-15.0 [facility] Comment on above: Performed By: #### L 100.0100, L501.9520, L500.4050 ####[facility] [address] [place], [address] IG% 0.500 Normal 0.0-0.9 [facility] Comment on above: Result Comment: IG% - Immature Granulocytes (promyelocytes, myelocytes andmetamyelocytes) > 1% indicates that a LEFT SHIFT is Present. Performed By: #### L 100.0100, L501.9520, L500.4050 ####[facility] [address] [place], [address] Lymphocytes/100 WBC (Bld) 18.9 % Low 19-41 [facility] Comment on above: Performed By: #### L 100.0100, L501.9520, L500.4050 ####[facility] [address] [place], [address] MCH (RBC) [Entitic mass] 31.5 pg Normal 27.0-32.0 [facility] Comment on above: Performed By: #### L 100.0100, L501.9520, L500.4050 ####[facility] [address] [place], [address] MCHC (RBC) [Mass/Vol] 30.3 g/dL Low 32-36 [facility] Comment on above: Performed By: #### L 100.0100, L501.9520, L500.4050 ####[facility] [address] [place], [address] MCV (RBC) [Entitic vol] 103.9 fL High 81-99 [facility] Comment on above: Performed By: #### L 100.0100, L501.9520, L500.4050 ####[facility] [address] [place], [address] Monocytes/100 WBC (Bld) 8.7 % Normal 0-10 [facility] Comment on above: Performed By: #### L 100.0100, L501.9520, L500.4050 ####[facility] [address] [place], [address] Neutrophils/100 WBC (Bld) 67.7 % Normal 47-70 [facility] Comment on above: Performed By: #### L 100.0100, L501.9520, L500.4050 ####[facility] [address] [place], [address] Nucleated RBC (Bld) [#/Vol] 0.2 10*3/uL Normal 0-5 [facility] Comment on above: Performed By: #### L 100.0100, L501.9520, L500.4050 ####[facility] [address] [place], [address] Platelet mean volume (Bld) [Entitic vol] 11.0 fL Normal 6.2-12.0 [facility] Comment on above: Performed By: #### L 100.0100, L501.9520, L500.4050 ####[facility] [address] [place], [address] Platelets (Bld) [#/Vol] 165 10*3/uL Normal 150-450 [facility] Comment on above: Performed By: #### L 100.0100, L501.9520, L500.4050 ####[facility] [address] [place], [address] RBC (Bld) [#/Vol] 3.33 10*6/uL Low 4.2-5.4 [facility] Comment on above: Performed By: #### L 100.0100, L501.9520, L500.4050 ####[facility] [address] [place], [address] RDW SD 55.6 fl High 35.1-43.9 [facility] Comment on above: Performed By: #### L 100.0100, L501.9520, L500.4050 ####[facility] [address] [place], [address] WBC (Bld) [#/Vol] 12.1 10*3/uL High 4.4-11.0 [facility] Comment on above: Performed By: #### L 100.0100, L501.9520, L500.4050 ####[facility] [address] [place], [address] CNPNon 04-29-2024 [facility] Telephone (INTMWS) SIA ABDUL ([id number]) 1980 F Date Time Provider Department 04/29/24 MARILEE THAKUR INTWS During your visit today, we recorded the following information about you: Pepper Walsh, RODRÍGUEZ 04/29/2024 12:57 PM Signed Clarence with N ([facility]) calling to update provider that patient was seen by one of their nurses yesterday, pt was not acting right, squad was called, squad arrived and pt declined the squad. Pt then went to stay at her mom's. [facility] nurse contacted cardiology and cardiology advised pt to go to ER, and pt was agreeable to go. Clarence reports today, per patient 's mom, patient has been admitted to [facility]. RODRÍGUEZ Blake Chitra, MD 04/29/2024 4:30 PM Signed Noted. Allergies As of Date: 04/29/2024 Noted Allergy Reaction BEE STING 02/28/2023 10 - Anaphylaxis BUMEX (BUMETANIDE) 03/12/2024 6 - Diarrhea 14 - Other: See Comments Comments: chula DILANTIMelia (PHENYTOIN SODIUM EXTEND*01/28/2006 Date Reviewed: 04/06/2024 Reviewed by: Kim Germain [facility] - Fully Assessed Reason for Visit: Patient Update [1234] Prescriptions as of 04/30/2024 - torsemide (DEMADEX) 20 mg tablet Take an extra 20 a day mgs In addition to current dose of 40 mgs 2 times on days you have more than 5 pounds of water weight gain - fluticasone-vilanterol (BREO ELLIPTA) 100-25 mcg/dose inhaler Inhale 1 Inhalation as instructed once daily. - IRAIDA 0.35 mg tablet Take 1 tablet by mouth once daily. - EPINEPHrine (EPIPEN) 0.3 mg/0.3 mL auto-injector INJECT 1 PEN INTO LATERAL THIGH DIRECTED FOR ALLERGIC REACTIONS TO BEE/WASP STINGS MAY REPEAT IN 5-15 MINUTES IF SYMPTOMS PERSIST * *STAFF REORDER, 4 DAYS IN ADVANCE* - torsemide (DEMADEX) 20 mg tablet Take 2 tablets by mouth two times a day. - MEDICAL SUPPLY Lymphedema compression pump to both legs 1 hour daily. 60 mm Hg. New machine. - mometasone-formoterol (DULERA) 100-5 mcg/actuation inhaler Inhale 2 Puffs as instructed two times a day. - fluticasone (FLONASE) 50 mcg/actuation nasal spray INSTILL 2 SPRAYS IN EACH NOSTRIL DAILY - diphenoxylate-atropine (LOMOTIL) 2.5-0.025 mg per tablet Take 1 tablet by mouth four times a day as needed. - ondansetron (ZOFRAN) 4 mg tablet Take by mouth every 8 hours as needed for nausea/vomiting. - aspirin 81 mg chewable tablet Take 81 mg by mouth once daily. - carvedilol (COREG) 3.125 mg tablet Take 1 tablet by mouth two times a day. - ammonium lactate (LAC-HYDRIN) 12 % cream APPLY TOPICALLY TO AFFECTED AREA(S) ON LEGS AT BEDTIME - multivitamin-ferrous fumarate-folic acid (CERTAVITE-ANTIOXIDANT ) Take 1 tablet by mouth once daily. - Pebyb-6-KUK-EPA-Fish Oil 1,000 mg (120 mg-180 mg) cap Take 1 capsule by mouth once daily. - levothyroxine (SYNTHROID) 100 mcg tablet take one tablet by mouth daily one hour before breakfast - nystatin (NYAMYC) powder APPLY TOPICALLY TWICE [...] as needed for wheezing/shortness of breath. - acetaminophen (TYLENOL EXTRA STRENGTH) 500 mg tablet Take 2 tablets by mouth every 8 hours as needed for pain (For knee pain). - Gauze Bandage 2 X 2 bndg Apply 1 application to affected area twice daily. - cetirizine (ZYRTEC) 10 mg tablet Take [...] 4pm Dx:Q87.1 Problem List As Of Date 04/29/2024 Noted Resolved Other malaise and fatigue [R53.81, [...] 12/13/2013 Other lymphedema [I89.0] 04/26/2013 12/14/2014 BMI 50.0-5 (more content not included)... Normal [facility] Metabolic Prof ilon 04-29-2024 Albumin [Mass/Vol] 2.7 g/dL Low 3.2-5.0 [facility] Comment on above: Performed By: #### L 100.0100, L501.9520, L500.4050 ####[facility] [address] [place], [address] Albumin/Globulin [Mass ratio] 0.8 {ratio} Low 0.9-2.4 [facility] Comment on above: Performed By: #### L 100.0100, L501.9520, L500.4050 ####[facility] [address] [place], [address] ALK P 88 U/L Normal 45-117 [facility] Comment on above: Performed By: #### L 100.0100, L501.9520, L500.4050 ####[facility] [address] [place], [address] ALT [Catalytic activity/Vol] 24 U/L Normal 13-56 [facility] Comment on above: Performed By: #### L 100.0100, L501.9520, L500.4050 ####[facility] [address] [place], [address] AST [Catalytic activity/Vol] 17 U/L Normal 15-37 [facility] Comment on above: Performed By: #### L 100.0100, L501.9520, L500.4050 ####[facility] [address] [place], [address] Bilirubin [Mass/Vol] 0.40 mg/dL Normal 0.20-1.00 [facility] Comment on above: Result Comment: For patients on eltrombopag therapy, use of Dimension [place] TBIL is not recommended. Performed By: #### L 100.0100, L501.9520, L500.4050 ####[facility] [address] [place], [address] BUN/CRE 49.4 RATIO High 10-20 [facility] Comment on above: Performed By: #### L 100.0100, L501.9520, L500.4050 ####[facility] [address] [place], [address] CA,Total 8.5 mg/dL Normal 8.5-10.1 [facility] Comment on above: Performed By: #### L 100.0100, L501.9520, L500.4050 ####[facility] [address] [place], [address] Chloride [Moles/Vol] 96 mmol/L Low 98-107 [facility] Comment on above: Performed By: #### L 100.0100, L501.9520, L500.4050 ####[facility] [address] [place], [address] CO2 [Moles/Vol] 41.0 mmol/L High 21.0-32.0 [facility] Comment on above: Performed By: #### L 100.0100, L501.9520, L500.4050 ####[facility] [address] [place], [address] Creatinine [Mass/Vol] 0.53 mg/dL Low 0.55-1.02 [facility] Comment on above: Result Comment: The validity of the calculated GFR GFRAA in patients over70 years has not been determined. Clinical correlation isessential. Performed By: #### L 100.0100, L501.9520, L500.4050 ####[facility] [address] [place], [address] ECRCL 183.25 ml/min Normal [facility] Comment on above: Performed By: #### L 100.0100, L501.9520, L500.4050 ####[facility] [address] [place], [address] EST GFR - AA 164 mL/min Normal >60 [facility] Comment on above: Result Comment: Afri can [place] GFR Calc Performed By: #### L 100.0100, L501.9520, L500.4050 ####[facility] [address] [place], [address] GAP 4 Low 5-15 [facility] Comment on above: Performed By: #### L 100.0100, L501.9520, L500.4050 ####[facility] [address] [place], [address] GFR/1.73 sq M.predicted among non-blacks MDRD (S/P/Bld) [Vol rate/Area] 136 mL/min/{1.73_m2} Normal >60 [facility] Comment on above: Result Comment: Non- GFR Calc Performed By: #### L 100.0100, L501.9520, L500.4050 ####[facility] [address] [place], [address] Globulin (S) [Mass/Vol] 3.5 g/dL Normal 2.2-4.2 [facility] Comment on above: Performed By: #### L 100.0100, L501.9520, L500.4050 ####[facility] [address] [place], [address] Glucose [Mass/Vol] 94 mg/dL Normal 74-106 [facility] Comment on above: Performed By: #### L 100.0100, L501.9520, L500.4050 ####[facility] [address] [place], [address] Potassium [Moles/Vol] 3.4 mmol/L Low 3.5-5.1 [facility] Comment on above: Performed By: #### L 100.0100, L501.9520, L500.4050 ####[facility] [address] [place], [address] Sodium [Moles/Vol] 141 mmol/L Normal 136-145 [facility] Comment on above: Performed By: #### L 100.0100, L501.9520, L500.4050 ####[facility] [address] [place], [address] T PROT 6.2 g/dL Low 6.4-8.2 [facility] Comment on above: Performed By: #### L 100.0100, L501.9520, L500.4050 ####[facility] [address] [place], [address] Urea nitrogen [Mass/Vol] 26 mg/dL High 7-18 [facility] Comment on above: Performed By: #### L 100.0100, L501.9520, L500.4050 ####[facility] [address] [place], [place], [address] L501.4020on 04-29-2024 TROPONIN-I HS 12 pg/mL Normal 3.0-54.0 [facility] Comment on above: Order Comment: 'TROP ' Serial specimen #1, #2 or #3: 3 Result Comment: Plea se Note: New Test Units and Gender Specific Reference Ranges. For more information see Policy Stat Procedure [place] High Sensitivity Troponin (TNIH) and attachments. Performed By: #### L 501.4020 ####[facility] [address] [place], [address] TROPONIN-I HS 14 pg/mL Normal 3.0-54.0 [facility] Comment on above: Order Comment: 'TROP ' Serial specimen #1, #2 or #3: 2 Result Comment: Plea se Note: New Test Units and Gender Specific Reference Ranges. For more information see Policy Stat Procedure [facility] High Sensitivity Troponin (TNIH) and attachments. Performed By: #### L 501.4020 ####[facility] [address] [place], [address] TROPONIN-I HS 14 pg/mL Normal 3.0-54.0 [facility] Comment on above: Order Comment: 'TROP ' Serial specimen #1, #2 or #3: 1 Result Comment: Plea se Note: New Test Units and Gender Specific Reference Ranges. For more information see Policy Stat Procedure [facility] High Sensitivity Troponin (TNIH) and attachments. Performed By: #### L 501.4020 ####[facility] [address] [place], [address] Magnesiumon 04-29-2024 Magnesium [Mass/Vol] 2.3 mg/dL Normal 1.6-2.6 [facility] Comment on above: Order Comment: Comme nts: may add to ED labs Performed By: #### L 501.5200 ####[facility] [address] [place], [address] Thyroid Stim Hormone (TSH)on 04-29-2024 TSH 3.530 uIU/mL Normal 0.358-3.740 [facility] Comment on above: Performed By: #### L 100.0100, L501.9520, L500.4050 ####[facility] [address] [place], [address] Basic Metabolic Profile (BMP )on 04-28-2024 BUN/CRE 42.6 RATIO High 20 [facility] Comment on above: Order Comment: 'TROP ' Serial specimen #1, #2 or #3: 1 Performed By: #### L 500.2500, L100.0100, L501.4020 ####[facility] [address] [place], [address] CA,Total 9.1 mg/dL Normal 8.5-10.1 [facility] Comment on above: Order Comment: 'TROP ' Serial specimen #1, #2 or #3: 1 Performed By: #### L 500.2500, L100.0100, L501.4020 ####[facility] [address] [place], [address] Chloride [Moles/Vol] 95 mmol/L Low 98-107 [facility] Comment on above: Order Comment: 'TROP ' Serial specimen #1, #2 or #3: 1 Performed By: #### L 500.2500, L100.0100, L501.4020 ####[facility] [address] [place], [address] CO2 [Moles/Vol] 40.0 mmol/L High 21.0-32.0 [facility] Comment on above: Order Comment: 'TROP ' Serial specimen #1, #2 or #3: 1 Performed By: #### L 500.2500, L100.0100, L501.4020 ####[facility] [address] [place], [address] Creatinine [Mass/Vol] 0.73 mg/dL Normal 0.55-1.02 [facility] Comment on above: Order Comment: 'TROP ' Serial specimen #1, #2 or #3: 1 Result Comment: The validity of the calculated GFR GFRAA in patients over70 years has not been determined. Clinical correlation isessential. Performed By: #### L 500.2500, L100.0100, L501.4020 ####[facility] [address] [place], [address] ECRCL 133.05 ml/min Normal [facility] Comment on above: Order Comment: 'TROP ' Serial specimen #1, #2 or #3: 1 Performed By: #### L 500.2500, L100.0100, L501.4020 ####[facility] [address] [facility] [address] EST GFR - AA 113 mL/min Normal >60 [facility] Comment on above: Order Comment: 'TROP ' Serial specimen #1, #2 or #3: 1 Result Comment: Afri can [place] GFR Calc Performed By: #### L 500.2500, L100.0100, L501.4020 ####[facility] [address] [facility] [address] GAP 5 Normal 5-15 [facility] Comment on above: Order Comment: 'TROP ' Serial specimen #1, #2 or #3: 1 Performed By: #### L 500.2500, L100.0100, L501.4020 ####[facility] [address] [facility] [address] GFR/1.73 sq M.predicted among non-blacks MDRD (S/P/Bld) [Vol rate/Area] 93 mL/min/{1.73_m2} Normal >60 [facility] Comment on above: Order Comment: 'TROP ' Serial specimen #1, #2 or #3: 1 Result Comment: Non- GFR Calc Performed By: #### L 500.2500, L100.0100, L501.4020 ####[facility] [address] [place], [address] Glucose [Mass/Vol] 76 mg/dL Normal 74-106 [facility] Comment on above: Order Comment: 'TROP ' Serial specimen #1, #2 or #3: 1 Performed By: #### L 500.2500, L100.0100, L501.4020 ####[facility] [address] [place], [address] Potassium [Moles/Vol] 4.5 mmol/L Normal 3.5-5.1 [facility] Comment on above: Order Comment: 'TROP ' Serial specimen #1, #2 or #3: 1 Result Comment: Slig ht Hemolysis, Result may be falsely increased. Performed By: #### L 500.2500, L100.0100, L501.4020 ####[facility] [address] [place], [address] Sodium [Moles/Vol] 141 mmol/L Normal 136-145 [facility] Comment on above: Order Comment: 'TROP ' Serial specimen #1, #2 or #3: 1 Performed By: #### L 500.2500, L100.0100, L501.4020 ####[facility] [address] [place], [address] Urea nitrogen [Mass/Vol] 31 mg/dL High 7-18 [facility] Comment on above: Order Comment: 'TROP ' Serial specimen #1, #2 or #3: 1 Performed By: #### L 500.2500, L100.0100, L501.4020 ####[facility] [address] [place], [address] CBC W/Diff, Automatedon 04-10 Absolute Lymph 2.13 X10 3/uL Normal 0.83-4.51 [facility] Comment on above: Performed By: #### L 500.2500, L100.0100, L501.4020 ####[facility] [address] [place], [address] Absolute Neut 9.9 X10 3/uL High 2.0-7.7 [facility] Comment on above: Performed By: #### L 500.2500, L100.0100, L501.4020 ####[facility] [address] [place], [address] Basophils/100 WBC (Bld) 0.7 % Normal 0-1 [facility] Comment on above: Performed By: #### L 500.2500, L100.0100, L501.4020 ####[facility] [address] [place], [address] Eosinophils/100 WBC (Bld) 2.0 % Normal 0-5 [facility] Comment on above: Performed By: #### L 500.2500, L100.0100, L501.4020 ####[facility] [address] [place], [address] Erythrocyte distribution width (RBC) [Ratio] 14.9 % High 11.6-14.6 [facility] Comment on above: Performed By: #### L 500.2500, L100.0100, L501.4020 ####[facility] [address] [place], [address] Hematocrit (Bld) [Volume fraction] 39.0 % Normal 37-47 [facility] Comment on above: Performed By: #### L 500.2500, L100.0100, L501.4020 ####[facility] [address] [place], [address] Hemoglobin (Bld) [Mass/Vol] 12.1 g/dL Normal 12.0-15.0 [facility] Comment on above: Performed By: #### L 500.2500, L100.0100, L501.4020 ####[facility] [address] [place], [address] IG% 0.600 Normal 0.0-0.9 [facility] Comment on above: Result Comment: IG% - Immature Granulocytes (promyelocytes, myelocytes andmetamyelocytes) > 1% indicates that a LEFT SHIFT is Present. Performed By: #### L 500.2500, L100.0100, L501.4020 ####[facility] [address] [place], [address] Lymphocytes/100 WBC (Bld) 15.6 % Low 19-41 [facility] Comment on above: Performed By: #### L 500.2500, L100.0100, L501.4020 ####[facility] [address] [place], [address] MCH (RBC) [Entitic mass] 31.7 pg Normal 27.0-32.0 [facility] Comment on above: Performed By: #### L 500.2500, L100.0100, L501.4020 ####[facility] [address] [place], [address] MCHC (RBC) [Mass/Vol] 31.0 g/dL Low 32-36 [facility] Comment on above: Performed By: #### L 500.2500, L100.0100, L501.4020 ####[facility] [address] [place], [address] MCV (RBC) [Entitic vol] 102.1 fL High 81-99 [facility] Comment on above: Performed By: #### L 500.2500, L100.0100, L501.4020 ####[facility] [address] [place], [address] Monocytes/100 WBC (Bld) 9.0 % Normal 0-10 [facility] Comment on above: Performed By: #### L 500.2500, L100.0100, L501.4020 ####[facility] [address] [place], [address] Neutrophils/100 WBC (Bld) 72.1 % High 47-70 [facility] Comment on above: Performed By: #### L 500.2500, L100.0100, L501.4020 ####[facility] [address] [place], [address] Nucleated RBC (Bld) [#/Vol] 0.5 10*3/uL Normal 0-5 [facility] Comment on above: Performed By: #### L 500.2500, L100.0100, L501.4020 ####[facility] [address] [place], [address] Platelet mean volume (Bld) [Entitic vol] 12.1 fL High 6.2-12.0 [facility] Comment on above: Performed By: #### L 500.2500, L100.0100, L501.4020 ####[facility] [address] [place], [address] Platelets (Bld) [#/Vol] 185 10*3/uL Normal 150-450 [facility] Comment on above: Performed By: #### L 500.2500, L100.0100, L501.4020 ####[facility] [address] [place], [address] RBC (Bld) [#/Vol] 3.82 10*6/uL Low 4.2-5.4 [facility] Comment on above: Performed By: #### L 500.2500, L100.0100, L501.4020 ####[facility] [address] [place], [address] RDW SD 54.7 fl High 35.1-43.9 [facility] Comment on above: Performed By: #### L 500.2500, L100.0100, L501.4020 ####[facility] [address] [place], [address] WBC (Bld) [#/Vol] 13.7 10*3/uL High 4.4-11.0 [facility] Comment on above: Performed By: #### L 500.2500, L100.0100, L501.4020 ####[facility] [address] [place], [address] Chest PA and Lateralon 04-28 Chest PA and Lateral Normal [facility] Emergency Department Summary on 04-28-2024 Emergency Department Summary Normal [facility] H AND P Exam - Hospitaliston 04-28-2024 H&P Exam - Hospitalist Normal [facility] L501.4020on 04-28-2024 TROPONIN-I HS 28 pg/mL Normal 3.0-54.0 [facility] Comment on above: Order Comment: 'TROP ' Serial specimen #1, #2 or #3: 1 Result Comment: Plea se Note: New Test Units and Gender Specific Reference Ranges. For more information see Policy Stat Procedure [place] High Sensitivity Troponin (TNIH) and attachments. Performed By: #### L 500.2500, L100.0100, L501.4020 ####[facility] [address] [place], [address] Urinalysis, Completeon 04-28 BACTERIA 2+ /hpf Normal None Seen [facility] Comment on above: Order Comment: CLEAN CATCH Performed By: #### L 400.0001 ####[facility] [address] [place], [address] CAST,HYALINE 0-5 SEEN Normal 0-5 [facility] Comment on above: Order Comment: CLEAN CATCH Performed By: #### L 400.0001 ####[facility] [address] [place], [address] EPI,SQUAMOUS 5-10 SEEN Normal 5-10 [facility] Comment on above: Order Comment: CLEAN CATCH Performed By: #### L 400.0001 ####[facility] [address] [place], [address] Mucus Ql (Urine sed) 1+ /hpf Normal [facility] Comment on above: Order Comment: CLEAN CATCH Performed By: #### L 400.0001 ####[facility] [address] [place], [place], [address] RBC 5-10 SEEN Normal 0-5 [facility] Comment on above: Order Comment: CLEAN CATCH Performed By: #### L 400.0001 ####[facility] [address] [place], [place], [id number] WBC 5-10 SEEN Normal 0-5 [facility] Comment on above: Order Comment: CLEAN CATCH Performed By: #### L 400.0001 ####[facility] [address] [place], [place], [id number] [facility] Telephone (INTMWS) SIA ABDUL ([id number]) 1980 F Date Time Provider Department 04/27/24 MARILEE THAKUR INTWS During your visit today, we recorded the following information about you: Rah Turner, RN 04/27/2024 3:16 PM Signed Enrique- [facility]- called to give pcp update on patient. Reports they tried to send patient out today- reports pt is lethargic, POX running low when Enrique was there: 90%- pt used her own POX and got 96-97%, pt having increased confusion, pt is acting off. Pt refusing weights since last Wed, and refusing showers and bed baths. Pt also has a left outer ankle lump and Enrique could not tell if it had fluid in it. [facility] called EMS today, they got 96% POX with patient on 4LO2, but because patient was acting off and confused EMS wanted to take patient to ER but patient refused. Enrique is notifying patient's doctors, and will call patient's tier lift truck operator next. Marilee Thakur MD 04/27/2024 5:25 PM Signed She needs to go to the ER. Regards, Rafia Romero MD, MA 04/30/2024 9:00 AM Signed See other TE 04/29-direct care provider notified PCP office patient has been admitted to Hospital. Will close TE at this time. Rafia Dennis MA Allergies As of Date: 04/27/2024 Noted Allergy Reaction BEE STING 02/28/2023 10 - Anaphylaxis BUMEX (BUMETANIDE) 03/12/2024 6 - Diarrhea 14 - Other: See Comments Comments: chula PARMAR (PHENYTOIN SODIUM EXTEND*01/28/2006 Date Reviewed: 04/06/2024 Reviewed by: Kim Germain OCCA - Fully Assessed Reason for Visit: Patient Update [1234] Prescriptions as of 04/30/2024 - torsemide (DEMADEX) 20 mg tablet Take an extra 20 a day mgs In addition to current dose of 40 mgs 2 times on days you have more than 5 pounds of water weight gain - fluticasone-vilanterol (BREO ELLIPTA) 100-25 mcg/dose inhaler Inhale 1 Inhalation as instructed once daily. - IRAIDA 0.35 mg tablet Take 1 tablet by mouth once daily. - EPINEPHrine (EPIPEN) 0.3 mg/0.3 mL auto-injector INJECT 1 PEN INTO LATERAL THIGH DIRECTED FOR ALLERGIC REACTIONS TO BEE/WASP STINGS MAY REPEAT IN 5-15 MINUTES IF SYMPTOMS PERSIST * *STAFF REORDER, 4 DAYS IN ADVANCE* - torsemide (DEMADEX) 20 mg tablet Take 2 tablets by mouth two times a day. - MEDICAL SUPPLY Lymphedema compression pump to both legs 1 hour daily. 60 mm Hg. New machine. - mometasone-formoterol (DULERA) 100-5 mcg/actuation inhaler Inhale 2 Puffs as instructed two times a day. - fluticasone (FLONASE) 50 mcg/actuation nasal spray INSTILL 2 SPRAYS IN EACH NOSTRIL DAILY - diphenoxylate-atropine (LOMOTIL) 2.5-0.025 mg per tablet Take 1 tablet by mouth four times a day as needed. - ondansetron (ZOFRAN) 4 mg tablet Take by mouth every 8 hours as needed for nausea/vomiting. - aspirin 81 mg chewable tablet Take 81 mg by mouth once daily. - carvedilol (COREG) 3.125 mg tablet Take 1 tablet by mouth two times a day. - ammonium lactate (LAC-HYDRIN) 12 % cream APPLY TOPICALLY TO AFFECTED AREA(S) ON LEGS AT BEDTIME - multivitamin-ferrous fumarate-folic acid (CERTAVITE-ANTIOXIDANT ) Take 1 tablet by mouth once daily. - Zdavp-0-KXX-EPA-Fish Oil 1,000 mg (120 mg-180 mg) cap Take 1 capsule by mouth once daily. - levothyroxine (SYNTHROID) 100 mcg tablet take one tablet by mouth daily one hour before breakfast - nystatin (NYAMYC) powder APPLY TOPICALLY TWICE [...] as needed for wheezing/shortness of breath. - acetaminophen (TYLENOL EXTRA STRENGTH) 500 mg tablet Take 2 tablets by mouth every 8 hours as needed for pain (For knee pain). - Gauze Bandage 2 X 2 bndg Apply 1 application to affected area twice daily. 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 Normal [facility] US SOFT TISSUE ABDOMENon US SOFT TISSUE ABDOMEN * * *Final Report* * * DATE OF EXAM: Apr 14 2024 11:30AM WRU [id number] - US SOFT TISSUE ABDOMEN / PROCEDURE REASON: Abdominal mass, unspecified abdominal location * * * * Physician Interpretation * * * * EXAMINATION: US SOFT TISSUE ABDOMEN CLINICAL HISTORY: Palpable lumps along the left abdominal wall. TECHNIQUE: Grayscale and color Doppler imaging of the area of concern, along the left abdominal wall. COMPARISON: None. Findings: Evaluation is limited due to body habitus. Within the area of concern, there are 3 separate loculated fluid collections are slightly thickened rims. This includes a 1.2 x 1.1 x 1.2 cm collection, a 0.7 x 0.7 x 1.5 cm collection, and a 0.6 x 0.5 x 0.9 cm collection. IMPRESSION: 1. In the area of concern, there are 3 separate small thick-walled fluid collections. The appearance is nonspecific on ultrasound. Possibilities would include subcutaneous hematomas or abscesses. Please correlate clinically. Options for further management would include a short-term follow-up ultrasound in 4-6 weeks, to reassess the size of the collections, or percutaneous aspiration. Inside Sales Engineer: PSCB Transcribe Date/Time: Apr 16 2024 1:34P Dictated by : ESTHER ARANGO MD This examination was interpreted and the report reviewed and electronically signed by: ESTHER ARANGO MD on Apr 16 2024 1:39PM EST [id number] Normal [facility] CNPNon 04-12-2024 CNPN Telephone (INTMWS) SIA ABDUL ([id number]) 1980 F Date Time Provider Department 04/12/24 MARILEE THAKUR During your visit today, we recorded the following information about you: Rah Turner RN 04/12/2024 12:48 PM Signed Emery asking pcp to discontinue the Dulera since it is no longer covered by insurance and the Breo Ellipta was sent in it's place since insurance does cover Breo. Emery is going to go ahead and discontinue the dulera on their end. Marilee Thakur MD 04/12/2024 5:32 PM Signed Noted Allergies As of Date: 04/12/2024 Noted Allergy Reaction BEE STING 02/28/2023 10 - Anaphylaxis BUMEX (BUMETANIDE) 03/12/2024 6 - Diarrhea 14 - Other: See Comments Comments: veliaangel GHULAM (PHENYTOIN SODIUM EXTEND*01/28/2006 Date Reviewed: 04/06/2024 Reviewed by: Kim Germain OCCA - Fully Assessed Reason for Visit: Medication Problem [65] Prescriptions as of 04/12/2024 - torsemide (DEMADEX) 20 mg tablet Take an extra 20 a day mgs In addition to current dose of 40 mgs 2 times on days you have more than 5 pounds of water weight gain - fluticasone-vilanterol (BREO ELLIPTA) 100-25 mcg/dose inhaler Inhale 1 Inhalation as instructed once daily. - IRAIDA 0.35 mg tablet Take 1 tablet by mouth once daily. - EPINEPHrine (EPIPEN) 0.3 mg/0.3 mL auto-injector INJECT 1 PEN INTO LATERAL THIGH DIRECTED FOR ALLERGIC REACTIONS TO BEE/WASP STINGS MAY REPEAT IN 5-15 MINUTES IF SYMPTOMS PERSIST * *STAFF REORDER, 4 DAYS IN ADVANCE* - torsemide (DEMADEX) 20 mg tablet Take 2 tablets by mouth two times a day. - MEDICAL SUPPLY Lymphedema compression pump to both legs 1 hour daily. 60 mm Hg. New machine. - mometasone-formoterol (DULERA) 100-5 mcg/actuation inhaler Inhale 2 Puffs as instructed two times a day. - fluticasone (FLONASE) 50 mcg/actuation nasal spray INSTILL 2 SPRAYS IN EACH NOSTRIL DAILY - diphenoxylate-atropine (LOMOTIL) 2.5-0.025 mg per tablet Take 1 tablet by mouth four times a day as needed. - ondansetron (ZOFRAN) 4 mg tablet Take by mouth every 8 hours as needed for nausea/vomiting. - aspirin 81 mg chewable tablet Take 81 mg by mouth once daily. - carvedilol (COREG) 3.125 mg tablet Take 1 tablet by mouth two times a day. - ammonium lactate (LAC-HYDRIN) 12 % cream APPLY TOPICALLY TO AFFECTED AREA(S) ON LEGS AT BEDTIME - multivitamin-ferrous fumarate-folic acid (CERTAVITE-ANTIOXIDANT ) Take 1 tablet by mouth once daily. - Czkom-7-TTT-EPA-Fish Oil 1,000 mg (120 mg-180 mg) cap Take 1 capsule by mouth once daily. - levothyroxine (SYNTHROID) 100 mcg tablet take one tablet by mouth daily one hour before breakfast - nystatin (NYAMYC) powder APPLY TOPICALLY TWICE [...] as needed for wheezing/shortness of breath. - acetaminophen (TYLENOL EXTRA STRENGTH) 500 mg tablet Take 2 tablets by mouth every 8 hours as needed for pain (For knee pain). - Gauze Bandage 2 X 2 bndg Apply 1 application to affected area twice daily. - cetirizine (ZYRTEC) 10 mg tablet Take [...] 4pm Dx:Q87.1 Problem List As Of Date 04/12/2024 Noted Resolved Other malaise and fatigue [R53.81, [...] [E03.9] 12/14/2014 Obstructive sleep apnea syndrome [G47.33] more content not included)... Normal [facility] Tal 04-09-2024 LOU Telephone (INTMWS) SIA ABDUL ([id number]) 1980 F Date Time Provider Department 04/09/24 MARILEE THAKUR During your visit today, we recorded the following information about you: Morena Kearney MA 04/09/2024 1:53 PM Signed Insurance mailed letter stating Augusto is no longer on formulary. Formulary covered alternatives are -Breo Ellipta -Breyna -Advair HFA Please choose alternative and send. Patient caregiver is aware alternative will be sent. Please have staff fax phone note to number below showing new inhaler COMFORT Corona Chitra, MD 04/09/2024 5:14 PM Signed Well I ordered the breo and it still says that prior auth is needed. Regards, Morena Owen MD, MA 04/12/2024 12:10 PM Signed PA for Breo is approved Authorization number: [id number] Authorized from April 12, 2024 to April 11, 2025 Morena Kearney MA Allergies As of Date: 04/09/2024 Noted Allergy Reaction BEE STING 02/28/2023 10 - Anaphylaxis BUMEX (BUMETANIDE) 03/12/2024 6 - Diarrhea 14 - Other: See Comments Comments: chula GHULAM (PHENYTOIN SODIUM EXTEND*01/28/2006 Date Reviewed: 04/06/2024 Reviewed by: Kim Germain OCCA - Fully Assessed Reason for Visit: Medication Problem [65] Primary Visit Diagnosis:Mild intermittent asthma without complication [J45.20] Order(s):fluticasone-v ilanterol (BREO ELLIPTA) 100-25 mcg/dose inhalerInhale 1 Inhalation as instructed once daily.Disp: 1 EachRfl: 3 Prescriptions as of 04/12/2024 - torsemide (DEMADEX) 20 mg tablet Take an extra 20 a day mgs In addition to current dose of 40 mgs 2 times on days you have more than 5 pounds of water weight gain - fluticasone-vilanterol (BREO ELLIPTA) 100-25 mcg/dose inhaler Inhale 1 Inhalation as instructed once daily. - IRAIDA 0.35 mg tablet Take 1 tablet by mouth once daily. - EPINEPHrine (EPIPEN) 0.3 mg/0.3 mL auto-injector INJECT 1 PEN INTO LATERAL THIGH DIRECTED FOR ALLERGIC REACTIONS TO BEE/WASP STINGS MAY REPEAT IN 5-15 MINUTES IF SYMPTOMS PERSIST * *STAFF REORDER, 4 DAYS IN ADVANCE* - torsemide (DEMADEX) 20 mg tablet Take 2 tablets by mouth two times a day. - MEDICAL SUPPLY Lymphedema compression pump to both legs 1 hour daily. 60 mm Hg. New machine. - mometasone-formoterol (DULERA) 100-5 mcg/actuation inhaler Inhale 2 Puffs as instructed two times a day. - fluticasone (FLONASE) 50 mcg/actuation nasal spray INSTILL 2 SPRAYS IN EACH NOSTRIL DAILY - diphenoxylate-atropine (LOMOTIL) 2.5-0.025 mg per tablet Take 1 tablet by mouth four times a day as needed. - ondansetron (ZOFRAN) 4 mg tablet Take by mouth every 8 hours as needed for nausea/vomiting. - aspirin 81 mg chewable tablet Take 81 mg by mouth once daily. - carvedilol (COREG) 3.125 mg tablet Take 1 tablet by mouth two times a day. - ammonium lactate (LAC-HYDRIN) 12 % cream APPLY TOPICALLY TO AFFECTED AREA(S) ON LEGS AT BEDTIME - multivitamin-ferrous fumarate-folic acid (CERTAVITE-ANTIOXIDANT ) Take 1 tablet by mouth once daily. - Syadt-4-JHW-EPA-Fish Oil 1,000 mg (120 mg-180 mg) cap Take 1 capsule by mouth once daily. - levothyroxine (SYNTHROID) 100 mcg tablet take one tablet by mouth daily one hour before breakfast - nystatin (NYAMYC) powder APPLY TOPICALLY TWICE [...] as needed for wheezing/shortness of breath. - acetaminophen (TYLENOL EXTRA STRENGTH) 500 mg tablet Take 2 tablets by mouth every 8 hours as needed for pain (For knee pain). - Gauze Bandage 2 X 2 bndg Apply 1 application to affected area twice daily. - cetirizine (ZYRTEC) 10 mg tablet Take [...] 4pm Dx:Q87.1 Problem List As Of Date 04/09/2024 Noted Resolved Other malaise and fatigue [R53.81, R53.83] 08/06/2005 12/13/2013 Other dyspnea and respiratory abnormality [R06.*08/06/2005 12/13/2013 Other alteration of consciousness [R40.4] 08/06/2005 12/13/2013 WEIGHT GAIN, ABNORMAL [R63.5] 08/06/2005 12/13/2013 Prader-Willi syndrome [Q87.11] 08/27/2005 VENOUS INSUFFICIENCY [I87.2] 08/27/2005 12/14/2014 Mild intermittent asthma without complication [* Allergic rhinitis [J30.9] SLEEP ENROLLER (more content not included)... Normal [facility] Tal 04-08-2024 [facility] Telephone (INTMWS) SIA ABDUL ([id number]) 1980 F Date Time Provider Department 04/08/24 MARILEE THAKUR INTWS During your visit today, we recorded the following information about you: Pamela Singh LPN 04/08/2024 1:51 PM Signed Leia with [facility], PT called to let you know they need to re-cert pt for 04/13/24 and would like to see pt 2 times week for 4 weeks. dx Prader Willi Syndrome and Acute chronic diastolic congestive heart failure. Please call Leia back with verbal order. Okay to leave a detailed message. Pamela Singh, Marilee Zambrano MD 04/08/2024 1:54 PM Signed Verbal ok for the same Regards, María Garner MD, MA 04/08/2024 2:40 PM Signed Leia notified. Allergies As of Date: 04/08/2024 Noted Allergy Reaction BEE STING 02/28/2023 10 - Anaphylaxis BUMEX (BUMETANIDE) 03/12/2024 6 - Diarrhea 14 - Other: See Comments Comments: chula DILANTIN (PHENYTOIN SODIUM EXTEND*01/28/2006 Date Reviewed: 04/06/2024 Reviewed by: Kim Germain OCCA - Fully Assessed Reason for Visit: [facility] [Other] Prescriptions as of 04/08/2024 - IRAIDA 0.35 mg tablet Take 1 tablet by mouth once daily. - EPINEPHrine (EPIPEN) 0.3 mg/0.3 mL auto-injector INJECT 1 PEN INTO LATERAL THIGH DIRECTED FOR ALLERGIC REACTIONS TO BEE/WASP STINGS MAY REPEAT IN 5-15 MINUTES IF SYMPTOMS PERSIST * *STAFF REORDER, 4 DAYS IN ADVANCE* - torsemide (DEMADEX) 20 mg tablet Take 2 tablets by mouth two times a day. - MEDICAL SUPPLY Lymphedema compression pump to both legs 1 hour daily. 60 mm Hg. New machine. - mometasone-formoterol (DULERA) 100-5 mcg/actuation inhaler Inhale 2 Puffs as instructed two times a day. - fluticasone (FLONASE) 50 mcg/actuation nasal spray INSTILL 2 SPRAYS IN EACH NOSTRIL DAILY - diphenoxylate-atropine (LOMOTIL) 2.5-0.025 mg per tablet Take 1 tablet by mouth four times a day as needed. - ondansetron (ZOFRAN) 4 mg tablet Take by mouth every 8 hours as needed for nausea/vomiting. - aspirin 81 mg chewable tablet Take 81 mg by mouth once daily. - carvedilol (COREG) 3.125 mg tablet Take 1 tablet by mouth two times a day. - ammonium lactate (LAC-HYDRIN) 12 % cream APPLY TOPICALLY TO AFFECTED AREA(S) ON LEGS AT BEDTIME - multivitamin-ferrous fumarate-folic acid (CERTAVITE-ANTIOXIDANT ) Take 1 tablet by mouth once daily. - Wjgga-3-BWM-EPA-Fish Oil 1,000 mg (120 mg-180 mg) cap Take 1 capsule by mouth once daily. - levothyroxine (SYNTHROID) 100 mcg tablet take one tablet by mouth daily one hour before breakfast - nystatin (NYAMYC) powder APPLY TOPICALLY TWICE [...] as needed for wheezing/shortness of breath. - acetaminophen (TYLENOL EXTRA STRENGTH) 500 mg tablet Take 2 tablets by mouth every 8 hours as needed for pain (For knee pain). - Gauze Bandage 2 X 2 bndg Apply 1 application to affected area twice daily. - cetirizine (ZYRTEC) 10 mg tablet Take [...] 4pm Dx:Q87.1 Problem List As Of Date 04/08/2024 Noted Resolved Other malaise and fatigue [R53.81, [...] 40.0-44.9, adult (HCC) [Z68.41] 12/14/2014 02/09/2015 BMI 45. (more content not included)... Normal [facility] CNOVon 04-06-2024 CNOV Office Visit (VASSWS ) SIA ABDUL ([id number]) 1980 F Date Time Provider Department 04/06/24 10:00 AM HILDA JEONG VASSWS During your visit today, we recorded the following information about you: Pulse Blood pressure 76/minute 121/83 Hilda Jeong DO 04/06/2024 12:56 PM Signed [facility] [place] DEPARTMENT OF VASCULAR SURGERY OUTPATIENT VISIT DATE April 06, 2024 OUTPATIENT VISIT TYPE CONSULTATION SERVICE DATE: 04/06/2024 SERVICE TIME: 9:43 AM PRIMARY CARE PHYSICIAN: Marilee Thakur MD REFERRING PROVIDER: Marilee Thakur [address] [facility] [address] Consult requested for an opinion regarding the evaluation and treatment of the above. My final impression and recommendations will be communicated back to the requesting physician by way of the shared medical record or letter via US mail. CHIEF COMPLAINT: Patient presents with: New Patient History of Present Illness: Patient is a 43 year old Black female presenting for consultation, evaluation and possible treatment of leg edema.bilateral throbbing, heaviness, and edema. She was previously seen by Dr. Hirsch. She has known lymphedema and recently diagnosed with CHF. She has been having difficulty with managing her weight and fluid status. Predisposing factors included not significant. No specific history of injury or prior problems. Relieving factors include elevation of legs with mild improvement in symptoms. Patient denies DVT, phlebitis, and treatment with blood thinners. PAIN ASSESSMENT: PAIN EVALUATION No data found in the last 1 encounters. 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 NONE SOCIAL HISTORY: Social History Tobacco Use Smoking status: Never Smokeless tobacco: Never Substance Use Topics Alcohol use: No Drug use: No FAMILY HISTORY Problem Relation Age of Onset Diabetes Maternal Grandmother MEDICATIONS: IRAIDA 0.35 mg tablet Take 1 tablet by mouth once daily. EPINEPHrine (EPIPEN) 0.3 mg/0.3 mL auto-injector INJECT 1 PEN INTO LATERAL THIGH DIRECTED FOR ALLERGIC REACTIONS TO BEE/WASP STINGS MAY REPEAT IN 5-15 MINUTES IF SYMPTOMS PERSIST * *STAFF REORDER, 4 DAYS IN ADVANCE* torsemide (DEMADEX) 20 mg tablet Take 2 tablets by mouth two times a day. MEDICAL SUPPLY Lymphedema compression pump to both legs 1 hour daily. 60 mm Hg. New machine. mometasone-formoterol (DULERA) 100-5 mcg/actuation inhaler Inhale 2 Puffs as instructed two times a day. fluticasone (FLONASE) 50 mcg/actuation nasal spray INSTILL 2 SPRAYS IN EACH NOSTRIL DAILY diphenoxylate-atropine (LOMOTIL) 2.5-0.025 mg per tablet Take 1 tablet by mouth four times a day as needed. ondansetron (ZOFRAN) 4 mg tablet Take by mouth every 8 hours as needed for nausea/vomiting. aspirin 81 mg chewable tablet Take 81 mg by mouth once daily. carvedilol (COREG) 3.125 mg tablet Take 1 tablet by mouth two times a day. ammonium lactate (LAC-HYDRIN) 12 % cream APPLY TOPICALLY TO AFFECTED AREA(S) ON LEGS AT BEDTIME multivitamin-ferrous fumarate-folic acid (CERTAVITE-ANTIOXIDANT ) Take 1 tablet by mouth once daily. Fshyi-1-DCO-EPA-Fish Oil 1,000 mg (120 mg-180 mg) cap Take 1 capsule by mouth once daily. levothyroxine (SYNTHROID) 100 mcg tablet take one tablet by mouth daily one hour before breakfast nystatin (NYAMYC) powder APPLY TOPICALLY TWICE DAILY TO AFFECTED AREA(S) ON ABDOMINAL FOLDS OYSTER SHELL CALCIUM-VITAMIN D 500 mg-5 mcg (200 unit) per tablet take one tablet by mouth twice daily with meals clotrimazole (LOTRIMIN) 1 % cream APPLY TOPICALLY TO AFFECTED AREA(S) ON BILATERAL GROIN TWICE DAILY (Patient taking differently: as needed. APPLY TOPICALLY TO AFFECTED AREA(S) ON BILATERAL GROIN TWICE DAILY) albuterol HFA (VENTOLIN HFA) 90 mcg/actuation inhaler Inhale 2 Puffs as instructed every 4 hours as needed for wheezing/shortness of breath. acetaminophen (TYLENOL EXTRA STRENGTH) 500 mg tablet Take 2 tablets by mouth every 8 hours as needed for pain (For knee pain). Gauze Bandage (more content not included)... Normal [facility] Tal 04-06-2024 CNPN Telephone (INTMWS) SIA ABDUL ([id number]) 1980 F Date Time Provider Department 04/06/24 MARILEE THAKUR INTMWS During your visit today, we recorded the following information about you: Eulalia Laureano RN 04/06/2024 11:09 AM Signed Enrique Mckenna with [facility] calls with update. Enrique reports that patients weight today is 293.2 lbs (weighed patient twice). Yesterday patient weight was 282 lbs. Enrique reports no visible increase in edema noted. Lungs are clear and heart sounds good. Patient denies SOB. BP 141/92 and HR 73. Only thing patient has done different is she ate a late dinner last night around 1130 pm which isn't typical for patient. 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 RODRÍGUEZ Braden Chitra, MD 04/07/2024 1:05 PM Signed Ok I see that he is taking the demadex, so should continue it , could take an extra if needed Marilee Lassiter MD, Mary, LPN 04/08/2024 9:33 AM Signed Called and spoke to Clarence the nurse caring for patient, Clarence asking, please send demadex order to [facility] pharmacy with new directions. Dosage change Thank you. JORDAN Monroe Chitra, MD 04/08/2024 1:47 PM Addendum Can you confirm how much of demadex she is taking right now? Marilee Lassiter MD, Mary, LPN 04/08/2024 4:27 PM Signed When I spoke to nurse Clarenec stated she is taking 40mg 2 times a day currently. Lacie Reyes LPN April 08, 2024 4:26 PM Marilee Thakur MD 04/09/2024 12:30 PM Signed More demadex was sent to the pharmacy. Marilee Lassiter MD, Amanda, RODRÍGUEZ 04/09/2024 1:03 PM Signed Shobha Dallas with [facility] called and is notified of providers message and instructions. She voices understanding. She asked if we could fax the new prescription to the nurse Rafia at fax # [phone]. Rx faxed. Teresa Ferrera RN Allergies As of Date: 04/06/2024 Noted Allergy Reaction BEE STING 02/28/2023 10 - Anaphylaxis BUMEX (BUMETANIDE) 03/12/2024 6 - Diarrhea 14 - Other: See Comments Comments: chula DILANTIN (PHENYTOIN SODIUM EXTEND*01/28/2006 Date Reviewed: 04/06/2024 Reviewed by: Kim Germain OCCA - Fully Assessed Reason for Visit: Patient Update [1234] Order(s):torsemide (DEMADEX) 20 mg tabletTake an extra 20 a day mgs In addition to current dose of 40 mgs 2 times on days you have more than 5 pounds of water weight gainDisp: 10 tabletRfl: 1 Prescriptions as of 04/09/2024 - torsemide (DEMADEX) 20 mg tablet Take an extra 20 a day mgs In addition to current dose of 40 mgs 2 times on days you have more than 5 pounds of water weight gain - IRAIDA 0.35 mg tablet Take 1 tablet by mouth once daily. - EPINEPHrine (EPIPEN) 0.3 mg/0.3 mL auto-injector INJECT 1 PEN INTO LATERAL THIGH DIRECTED FOR ALLERGIC REACTIONS TO BEE/WASP STINGS MAY REPEAT IN 5-15 MINUTES IF SYMPTOMS PERSIST * *STAFF REORDER, 4 DAYS IN ADVANCE* - torsemide (DEMADEX) 20 mg tablet Take 2 tablets by mouth two times a day. - MEDICAL SUPPLY Lymphedema compression pump to both legs 1 hour daily. 60 mm Hg. New machine. - mometasone-formoterol (DULERA) 100-5 mcg/actuation inhaler Inhale 2 Puffs as instructed two times a day. - fluticasone (FLONASE) 50 mcg/actuation nasal spray INSTILL 2 SPRAYS IN EACH NOSTRIL DAILY - diphenoxylate-atropine (LOMOTIL) 2.5-0.025 mg per tablet Take 1 tablet by mouth four times a day as needed. - ondansetron (ZOFRAN) 4 mg tablet Take by mouth every 8 hours as needed for nausea/vomiting. - aspirin 81 mg chewable tablet Take 81 mg by mouth once daily. - carvedilol (COREG) 3.125 mg tablet Take 1 tablet by mouth two times a day. - ammonium lactate (LAC-HYDRIN) 12 % cream APPLY TOPICALLY TO AFFECTED AREA(S) ON LEGS AT BEDTIME - multivitamin-ferrous fumarate-folic acid (CERTAVITE-ANTIOXIDANT ) Take 1 tablet by mouth once daily. - Ytymy-0-TKV-EPA-Fish Oil 1,000 mg (120 mg-180 mg) cap Take 1 capsule by mouth once daily. - levothyroxine (SYNTHROID) 100 mcg tablet take one tablet by mouth daily one hour before breakfast - nystatin (NYAMYC) powder APPLY TOPICALLY TWICE [...] as needed for wheezing/shortness of breath. - acetaminophen (TYLENOL EXTRA STRENGTH) 500 mg tablet Take 2 tablets by mouth every 8 hours as needed for pain (For knee pain). - Gauze Bandage 2 X 2 bndg Apply 1 application to affected area twice daily. - cetirizine (ZYRTEC) 10 mg tablet Take 1 tablet by mouth once daily. - COMPOUNDED PRESCRIPTION 1 Each once jaimie (more content not included)... Normal [facility] Tal 04-02-2024 OBEDN Telephone (INTMWS) SIA ABDUL ([id number]) 1980 F Date Time Provider Department 1/24/25 MARILEE THAKUR During your visit today, we recorded the following information about you: Pepper Walsh RN 04/02/2024 8:32 AM Addendum Clarence, a nurse with [facility] is calling to ask if provider will approve re certification for retirement, PT and OT services for patient. Clarence would like a call back with provider's approval, . RODRÍGUEZ Blake Joy, APRN.MANAGER HOTEL 04/02/2024 9:13 AM Signed Agree with need for these services and agree to follow Mika Kaplan APRN.Candelaria Perez LPN 04/02/2024 9:37 AM Signed Phoned Clarence and went over notes below from Mika Kaplan INDUSTRIAL LABORER with understanding. Allergies As of Date: 04/02/2024 Noted Allergy Reaction BEE STING 02/28/2023 10 - Anaphylaxis BUMEX (BUMETANIDE) 03/12/2024 6 - Diarrhea 14 - Other: See Comments Comments: chula PARMAR (PHENYTOIN SODIUM EXTEND*01/28/2006 Date Reviewed: 03/12/2024 Reviewed by: Isela Leyva LPN - Fully Assessed Reason for Visit: Orders [681] Prescriptions as of 04/02/2024 - IRAIDA 0.35 mg tablet Take 1 tablet by mouth once daily. - EPINEPHrine (EPIPEN) 0.3 mg/0.3 mL auto-injector INJECT 1 PEN INTO LATERAL THIGH DIRECTED FOR ALLERGIC REACTIONS TO BEE/WASP STINGS MAY REPEAT IN 5-15 MINUTES IF SYMPTOMS PERSIST * *STAFF REORDER, 4 DAYS IN ADVANCE* - torsemide (DEMADEX) 20 mg tablet Take 2 tablets by mouth two times a day. - MEDICAL SUPPLY Lymphedema compression pump to both legs 1 hour daily. 60 mm Hg. New machine. - mometasone-formoterol (DULERA) 100-5 mcg/actuation inhaler Inhale 2 Puffs as instructed two times a day. - fluticasone (FLONASE) 50 mcg/actuation nasal spray INSTILL 2 SPRAYS IN EACH NOSTRIL DAILY - diphenoxylate-atropine (LOMOTIL) 2.5-0.025 mg per tablet Take 1 tablet by mouth four times a day as needed. - ondansetron (ZOFRAN) 4 mg tablet Take by mouth every 8 hours as needed for nausea/vomiting. - aspirin 81 mg chewable tablet Take 81 mg by mouth once daily. - carvedilol (COREG) 3.125 mg tablet Take 1 tablet by mouth two times a day. - ammonium lactate (LAC-HYDRIN) 12 % cream APPLY TOPICALLY TO AFFECTED AREA(S) ON LEGS AT BEDTIME - multivitamin-ferrous fumarate-folic acid (CERTAVITE-ANTIOXIDANT ) Take 1 tablet by mouth once daily. - Lcpac-1-IEP-EPA-Fish Oil 1,000 mg (120 mg-180 mg) cap Take 1 capsule by mouth once daily. - levothyroxine (SYNTHROID) 100 mcg tablet take one tablet by mouth daily one hour before breakfast - nystatin (NYAMYC) powder APPLY TOPICALLY TWICE [...] as needed for wheezing/shortness of breath. - acetaminophen (TYLENOL EXTRA STRENGTH) 500 mg tablet Take 2 tablets by mouth every 8 hours as needed for pain (For knee pain). - Gauze Bandage 2 X 2 bndg Apply 1 application to affected area twice daily. - cetirizine (ZYRTEC) 10 mg tablet Take [...] 4pm Dx:Q87.1 Problem List As Of Date 04/02/2024 Noted Resolved Other malaise and fatigue [R53.81, [...] adult (HCC) [Z68.41] 12/14/2014 02/09/2015 BMI 45.0-49.9, adul (more content not included)... Normal [facility] Bacteria Ur Culton 5 Bacteria identified Cx Nom (U) ORGANISM ID: 1 10,000 -<50,000 CFU/ml Mixed microbiota No further workup. Mixed microbiota can be due to???urine???contamina tion with skin bacteria at time of collection or presence of a long-term urinary catheter. If a new culture is needed, please consider re-education of the patient on proper midstream collection technique or straight catheterization for???urine???collecti on. Normal [facility] Comment on above: Performed By: #### 6 30-4 ####[id number] [place] [address] [place] CBC panel Auto (Bld)on 04-01 Erythrocyte distribution width (RBC) [Ratio] 14.0 % Normal 11.5-15.0 [facility] Comment on above: Order Comment: Speci men Type: BLOOD SPECIMEN Ordering Facility: [facility] Address: [address] [place] [address] Performed By: #### 5 8410-2 #### [facility] CLIA [id number] [address] [place] [address] [place] Hematocrit (Bld) [Volume fraction] 41.0 % Normal 36.0-46.0 [facility] Comment on above: Order Comment: Speci men Type: BLOOD SPECIMEN Ordering Facility: [facility] Address: [address] [place] [address] Performed By: #### 5 8410-2 #### [facility] CLIA [id number] [address] [place] [address] [place] Hemoglobin (Bld) [Mass/Vol] 12.1 g/dL Normal 11.5-15.5 [facility] Comment on above: Order Comment: Speci men Type: BLOOD SPECIMEN Ordering Facility: [facility] Address: [address] [place] [address] Performed By: #### 5 8410-2 #### [facility] CLIA [id number] [address] [place] [address] [place] MCH (RBC) [Entitic mass] 31.3 pg Normal 26.0-34.0 [facility] Comment on above: Order Comment: Speci men Type: BLOOD SPECIMEN Ordering Facility: [facility] Address: [address] [place] [address] Performed By: #### 5 8410-2 #### [facility] CLIA [id number] [address] [place] [address] [place] MCHC (RBC) [Mass/Vol] 29.5 g/dL Low 30.5-36.0 [facility] Comment on above: Order Comment: Speci men Type: BLOOD SPECIMEN Ordering Facility: [facility] Address: [address] [place] [address] Performed By: #### 5 8410-2 #### [facility] CLIA [id number] [address] [place] [address] [place] MCV (RBC) [Entitic vol] 106.2 fL High 80.0-100.0 [facility] Comment on above: Order Comment: Speci men Type: BLOOD SPECIMEN Ordering Facility: [facility] Address: [address] [place] [address] Performed By: #### 5 8410-2 #### [facility] CLIA [id number] [address] [place] [address] [place] Nucleated RBC (Bld) [#/Vol] 10*3/uL Normal <0.01 [facility] Comment on above: Order Comment: Speci men Type: BLOOD SPECIMEN Ordering Facility: [facility] Address: [address] [place] [address] Performed By: #### 5 8410-2 #### [facility] CLIA [id number] [address] [place] [address] [place] Platelet mean volume (Bld) [Entitic vol] 11.9 fL Normal 9.0-12.7 [facility] Comment on above: Order Comment: Speci men Type: BLOOD SPECIMEN Ordering Facility: [facility] Address: [address] [place] [address] Performed By: #### 5 8410-2 #### [facility] CLIA [id number] [address] [place] [address] [place] Platelets (Bld) [#/Vol] 240 10*3/uL Normal 150-400 [facility] Comment on above: Order Comment: Speci men Type: BLOOD SPECIMEN Ordering Facility: [facility] Address: [address] [place] [address] Performed By: #### 5 8410-2 #### [facility] CLIA [id number] [address] [place] [address] [place] RBC (Bld) [#/Vol] 3.86 10*6/uL Low 3.90-5.20 [facility] Comment on above: Order Comment: Speci men Type: BLOOD SPECIMEN Ordering Facility: [facility] Address: [address] [place] [address] Performed By: #### 5 8410-2 #### [facility] CLIA [id number] [address] [place] [address] [place] WBC (Bld) [#/Vol] 10.72 10*3/uL Normal 3.70-11.00 [facility] Comment on above: Order Comment: Speci men Type: BLOOD SPECIMEN Ordering Facility: [facility] Address: [address] [place] [address] Performed By: #### 5 8410-2 #### [facility] CLIA [id number] [address] [place] [address] [place] CNOVon 04-01-2024 CNOV Office Visit (INTMWS ) SIA ABDUL ([id number]) 1980 F Date Time Provider Department 04/01/24 11:00 AM MIKA KAPLAN During your visit today, we recorded the following information about you: Pulse Respiration Blood pressure Weight 72/minute 16/minute 122/80 127.5 kg Mika Kaplan APRN.CNP 04/01/2024 11:48 AM Signed CC: Patient presents with: Physical: Physical HPI Sia Abdul is a 43 year old female who presents today for annual physical exam but has had multiple hospitalizations recently with some concerns. CHF with recent mx hospitalizations with med changes: Edema and shortness of breath is improving. Has started to have more eneryg and aide states she has been dancing for the past few days. Patient reports she is feeling much better.Ms. Abdul indicates that she is feeling well and denies any symptoms referable to elevated blood pressure. Specifically denies headache, chest pain, palpitations, and dyspnea. Patient denies any side effects of her medication(s) and is compliant with their regimen. She does check BP's away from this office with average BP's in the 90s/70s range. Last 3 Encounter BP Readings: Date: BP: 04/01/2024 122/80 03/12/2024 116/85 02/16/2024 78/58 Mother reports a tinge of blood on the toilet paper with urination. Per patient is sometimes williamson when she urinates. Aidjose armando reports that in the last hospitalization she was noted to have a prolapsed uterus. No on continuous oxygen at 2 L during the day and 4L at night time. Denies difficulty urinating, abdominal pain, fever, or chills. Diet: Watches diet for salt (salty snacks, added salt, processed frozen/canned foods), sugary/sweet snacks, unhealthy fats: Yes Caffeine: 2 cups on average Water intake: on a fluid restriction of 6 cups total of fluid a day along with a sodium restriction. Hypothyroidism: Taking medication as ordered. No recent TSH Patient also concerned with 2 small lumps she noticed a few weeks ago. Areas not tender red and not getting large. Just noticed after losing a lot of weight weight. 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 NONE ALLERGIES Bee Sting, Bumex [Bumetanide], and Dilantin [Phenytoin Sodium Extended] MEDICATIONS IRAIDA 0.35 mg tablet Take 1 tablet by mouth once daily. EPINEPHrine (EPIPEN) 0.3 mg/0.3 mL auto-injector INJECT 1 PEN INTO LATERAL THIGH DIRECTED FOR ALLERGIC REACTIONS TO BEE/WASP STINGS MAY REPEAT IN 5-15 MINUTES IF SYMPTOMS PERSIST * *STAFF REORDER, 4 DAYS IN ADVANCE* torsemide (DEMADEX) 20 mg tablet Take 2 tablets by mouth two times a day. MEDICAL SUPPLY Lymphedema compression pump to both legs 1 hour daily. 60 mm Hg. New machine. mometasone-formoterol (DULERA) 100-5 mcg/actuation inhaler Inhale 2 Puffs as instructed two times a day. fluticasone (FLONASE) 50 mcg/actuation nasal spray INSTILL 2 SPRAYS IN EACH NOSTRIL DAILY diphenoxylate-atropine (LOMOTIL) 2.5-0.025 mg per tablet Take 1 tablet by mouth four times a day as needed. ondansetron (ZOFRAN) 4 mg tablet Take by mouth every 8 hours as needed for nausea/vomiting. aspirin 81 mg chewable tablet Take 81 mg by mouth once daily. carvedilol (COREG) 3.125 mg tablet Take 1 tablet by mouth two times a day. ammonium lactate (LAC-HYDRIN) 12 % cream APPLY TOPICALLY TO AFFECTED AREA(S) ON LEGS AT BEDTIME multivitamin-ferrous fumarate-folic acid (CERTAVITE-ANTIOXIDANT ) Take 1 tablet by mouth once daily. Kxbpq-9-FQM-EPA-Fish Oil 1,000 mg (120 mg-180 mg) cap Take 1 capsule by mouth once daily. levothyroxine (SYNTHROID) 100 mcg tablet take one tablet by mouth daily one hour before breakfast nystatin (NYAMYC) powder APPLY TOPICALLY TWICE DAILY TO AFFECTED AREA(S) ON ABDOMINAL FOLDS OYSTER SHELL CALCIUM-VITAMIN D 500 mg-5 mcg (200 unit) per tablet take one tablet by mouth twice daily with meals clotrimazole (LOTRIMIN) 1 % cream APPLY TOPICALLY TO AFFECTED AREA(S) ON BILATERAL GROIN TWICE DAILY (Patient taking differently: as needed. APPLY TOPICALLY TO AFFECTED AREA(S) ON BILATERAL GROIN TWICE DAILY) albuterol HFA (VENTOLIN HFA) 90 mcg/actuation inhaler Inhal (more content not included)... Normal [facility] TSH SerPl-aCncon 04-01-2024 TSH Qn 1.750 m[IU]/L Normal 0.270-4.200 [facility] Comment on above: Order Comment: Speci men Type: BLOOD SPECIMEN Ordering Facility: [facility] Address: [address] [place] [address] Result Comment: If t he patient is , TSH reference range varies by gestational period: First Trimester (weeks 9-12): 0.180-2.990 mIU/L Second Trimester: 0.110-3.980 mIU/L Third Trimester: 0.480-4.710 mIU/L Barney Campbell et al. A Practical Approach for the Verifications and Determination of Site- and Trimester-Specific Reference Intervals for Thyroid Function tests in . Thyroid, 2019:29:3:412-420. Marbin Stein, et al. 2017 Guidelines of the [place] [employer] for the Diagnosis and Management of Thyroid Disease during and the . Thyroid, 2017:27:3:315-389. Performed By: #### 3 016-3 #### [facility] CLIA [id number] [address] [place] [address] [place] UA DIP, URINE (POC)on 2024 BILIRUBIN UA (POCT) Negative Negative [facility] CLARITY UA (POCT) Clear [facility] COLOR UA (POCT) Yellow [facility] GLUCOSE UA (POCT) Negative Negative mg/dL [facility] Hemoglobin Ql (U) Large Abnormal Negative [facility] Interpretation and review of laboratory results Abnormal [facility] KETONE UA (POCT) Negative Negative mg/dL [facility] LEUKOCYTES UA (POCT) Negative Negative [facility] NITRITE UA (POCT) Negative Negative [facility] PH UA (POCT) 7.5 4.5 - 8.0 [facility] Protein Ql (U) Negative Negative mg/dL [facility] SPECIFIC GRAVITY UA (POCT) 1.015 1.005 - 1.030 [facility] UROBILINOGEN UA (POCT) 0.2 Normal E.U./dL [facility] Location:[facility], [address] [place] [address], [place], [place], [id number] [place] [address] POINT OF CARE [facility] Urinalysis complete panel (U )on 04-01-2024 Bacteria LM.HPF (Urine sed) [#/Area] Negative Normal Negative [facility] Comment on above: Order Comment: Speci men Type: URINE SPECIMEN Ordering Facility: [facility] Address: [address] [place] [address] Performed By: #### 2 4356-8 #### [facility] CLIA [id number] [address] [place] [address] [place] Bilirubin Ql (U) Negative Normal Negative [facility] Comment on above: Order Comment: Speci men Type: URINE SPECIMEN Ordering Facility: [facility] Address: [address] [place] [address] Performed By: #### 2 4356-8 #### [facility] CLIA [id number] [address] [place] [address] [place] Clarity (Unsp spec) Clear Normal Clear [facility] Comment on above: Order Comment: Speci men Type: URINE SPECIMEN Ordering Facility: [facility] Address: [address] [place] [address] Performed By: #### 2 4356-8 #### [facility] CLIA [id number] [address] [place] [address] [place] Color (U) Yellow Normal Yellow [facility] Comment on above: Order Comment: Speci men Type: URINE SPECIMEN Ordering Facility: [facility] Address: [address] [place] [address] Performed By: #### 2 4356-8 #### [facility] CLIA [id number] [address] [place] [address] [place] Epithelial cells LM.HPF (Urine sed) [#/Area] None Seen Normal [facility] Comment on above: Order Comment: Speci men Type: URINE SPECIMEN Ordering Facility: [facility] Address: [address] [place] [address] Performed By: #### 2 4356-8 #### [facility] CLIA [id number] [address] [place] [address] [place] Glucose Test strip (U) [Mass/Vol] Negative Normal Negative [facility] Comment on above: Order Comment: Speci men Type: URINE SPECIMEN Ordering Facility: [facility] Address: [address] [place] [address] Performed By: #### 2 4356-8 #### [facility] CLIA [id number] [address] [place] [address] [place] Hemoglobin Ql (U) 2+ Abnormal Negative [facility] Comment on above: Order Comment: Speci men Type: URINE SPECIMEN Ordering Facility: [facility] Address: [address] [place] [address] Performed By: #### 2 4356-8 #### [facility] CLIA [id number] [address] [place] [address] [place] Hyaline casts (Urine sed) [#/Area] 0 /[LPF] Normal 0 /LPF [facility] Comment on above: Order Comment: Speci men Type: URINE SPECIMEN Ordering Facility: [facility] Address: [address] [place] [address] Performed By: #### 2 4356-8 #### [facility] CLIA [id number] [address] [place] [address] [place] Ketones Ql (U) Negative Normal Negative [facility] Comment on above: Order Comment: Speci men Type: URINE SPECIMEN Ordering Facility: [facility] Address: [address] [place] [address] Performed By: #### 2 4356-8 #### [facility] CLIA [id number] [address] [place] [address] [place] Leukocyte esterase Test strip Ql (U) Negative Normal Negative [facility] Comment on above: Order Comment: Speci men Type: URINE SPECIMEN Ordering Facility: [facility] Address: [address] [place] [address] Performed By: #### 2 4356-8 #### [facility] CLIA [id number] [address] [place] [address] [place] Nitrite Ql (U) Negative Normal Negative [facility] Comment on above: Order Comment: Speci men Type: URINE SPECIMEN Ordering Facility: [facility] Address: [address] [place] [address] Performed By: #### 2 4356-8 #### [facility] CLIA [id number] [address] [place] [address] [place] pH (U) 8.0 [pH] Normal <8.5 [facility] Comment on above: Order Comment: Speci men Type: URINE SPECIMEN Ordering Facility: [facility] Address: [address] [place] [address] Performed By: #### 2 4356-8 #### [facility] CLIA [id number] [address] [place] [address] [place] Protein (U) [Mass/Vol] Negative Normal Negative [facility] Comment on above: Order Comment: Speci men Type: URINE SPECIMEN Ordering Facility: [facility] Address: [address] [place] [address] Performed By: #### 2 4356-8 #### [facility] CLIA [id number] [address] [place] [address] [place] RBC LM.HPF (Urine sed) [#/Area] 11-20 /HPF Abnormal 0-2 /HPF [facility] Comment on above: Order Comment: Speci men Type: URINE SPECIMEN Ordering Facility: [facility] Address: [address] [place] [address] Performed By: #### 2 4356-8 #### [facility] CLIA [id number] [address] [place] [address] [place] Specific gravity (U) [Rel density] 1.009 Normal 1.005-1.030 [facility] Comment on above: Order Comment: Speci men Type: URINE SPECIMEN Ordering Facility: [facility] Address: [address] [place] [address] Performed By: #### 2 4356-8 #### [facility] CLIA [id number] [address] [place] [address] [place] Urobilinogen Ql (U) 0.2 EU/dL Normal 0.2-1.0 EU/dL [facility] Comment on above: Order Comment: Speci men Type: URINE SPECIMEN Ordering Facility: [facility] Address: [address] [place] [address] Performed By: #### 2 4356-8 #### [facility] IA [id number] [address] [place] [address] [place] WBC LM.HPF (Urine sed) [#/Area] 0-5 /HPF Normal 0-5 /HPF [facility] Comment on above: Order Comment: Speci men Type: URINE SPECIMEN Ordering Facility: [facility] Address: [address] [place] [address] Performed By: #### 2 4356-8 #### [facility] IA [id number] [address] [place] [address] [place] Tal 03-29-2024 LOU Telephone (GRICELWS) SIA ABDUL ([id number]) 1980 F Date Time Provider Department 03/29/24 MARILEE THAKUR During your visit today, we recorded the following information about you: Teresa Ferrera, RN 03/29/2024 4:26 PM Signed Yazan with [facility] called in and reports [facility] reached out to them with a referral. They states they have been trying to get a hold of the Pt, but haven't been able to. She states [facility], but no the name of the senior living. I have her the names and number we had to get in contact with the Pt. I told her we had Shobha Dallas as a contact at the senior living [phone], which was the same phone # we had for the Pts home and mobile phone. Then we had Anali Gibson as her lawn care specialist at [phone]. She states she had tried calling the Pts mother, but was not able to get a hold of her. She said she would try these numbers. Allergies As of Date: 03/29/2024 Noted Allergy Reaction BEE STING 02/28/2023 10 - Anaphylaxis BUMEX (BUMETANIDE) 03/12/2024 6 - Diarrhea 14 - Other: See Comments Comments: chula PARMAR (PHENYTOIN SODIUM EXTEND*01/28/2006 Date Reviewed: 03/12/2024 Reviewed by: Isela Leyva LPN - Fully Assessed Reason for Visit: Patient Question [[id number]] Prescriptions as of 03/29/2024 - IRAIDA 0.35 mg tablet Take 1 tablet by mouth once daily. - EPINEPHrine (EPIPEN) 0.3 mg/0.3 mL auto-injector INJECT 1 PEN INTO LATERAL THIGH DIRECTED FOR ALLERGIC REACTIONS TO BEE/WASP STINGS MAY REPEAT IN 5-15 MINUTES IF SYMPTOMS PERSIST * *STAFF REORDER, 4 DAYS IN ADVANCE* - torsemide (DEMADEX) 20 mg tablet Take 2 tablets by mouth two times a day. - MEDICAL SUPPLY Lymphedema compression pump to both legs 1 hour daily. 60 mm Hg. New machine. - mometasone-formoterol (DULERA) 100-5 mcg/actuation inhaler Inhale 2 Puffs as instructed two times a day. - fluticasone (FLONASE) 50 mcg/actuation nasal spray INSTILL 2 SPRAYS IN EACH NOSTRIL DAILY - diphenoxylate-atropine (LOMOTIL) 2.5-0.025 mg per tablet Take 1 tablet by mouth four times a day as needed. - ondansetron (ZOFRAN) 4 mg tablet Take by mouth every 8 hours as needed for nausea/vomiting. - aspirin 81 mg chewable tablet Take 81 mg by mouth once daily. - carvedilol (COREG) 3.125 mg tablet Take 1 tablet by mouth two times a day. - ammonium lactate (LAC-HYDRIN) 12 % cream APPLY TOPICALLY TO AFFECTED AREA(S) ON LEGS AT BEDTIME - multivitamin-ferrous fumarate-folic acid (CERTAVITE-ANTIOXIDANT ) Take 1 tablet by mouth once daily. - Bppfe-7-FNM-EPA-Fish Oil 1,000 mg (120 mg-180 mg) cap Take 1 capsule by mouth once daily. - levothyroxine (SYNTHROID) 100 mcg tablet take one tablet by mouth daily one hour before breakfast - nystatin (NYAMYC) powder APPLY TOPICALLY TWICE [...] as needed for wheezing/shortness of breath. - acetaminophen (TYLENOL EXTRA STRENGTH) 500 mg tablet Take 2 tablets by mouth every 8 hours as needed for pain (For knee pain). - Gauze Bandage 2 X 2 bndg Apply 1 application to affected area twice daily. - cetirizine (ZYRTEC) 10 mg tablet Take [...] 4pm Dx:Q87.1 Problem List As Of Date 03/29/2024 Noted Resolved Other malaise and fatigue [R53.81, [...] (HCC) [Z68.43] 10/11/2013 12/14/2014 Venous insufficiency (chronic) (peripheral (more content not included)... [facility] (INTMWS) SIA ABDUL ([id number]) 1980 F Date Time Provider Department 03/24/24 MARILEE THAKUR INTMWS During your visit today, we recorded the following information about you: Pamela Singh LPN 03/24/2024 11:44 AM Signed Shobha with [facility] called to let you know af ax was sent approx around 11 am today 03-24-24. In this fax they are exact specific that need to be on Dr. Thakur last note and they need faxed back to them as soon as possible. This is regarding Lymphedema Leg Compressions Pump. FAX: [phone] JORDAN Boston Rachel L, MA 03/24/2024 12:28 PM Signed Faxed as requested. COMFORT Willingham Mary, LPN 03/25/2024 2:34 PM Signed Refaxed last office note per [facility] service Attn Rafia Gomez Lacie Reyes LPN March 25, 2024 2:26 PM Allergies As of Date: 03/24/2024 Noted Allergy Reaction BEE STING 02/28/2023 10 - Anaphylaxis BUMEX (BUMETANIDE) 03/12/2024 6 - Diarrhea 14 - Other: See Comments Comments: shikharoxann GHULAM (PHENYTOIN SODIUM EXTEND*01/28/2006 Date Reviewed: 03/12/2024 Reviewed by: Isela Leyva LPN - Fully Assessed Prescriptions as of 03/25/2024 - IRAIDA 0.35 mg tablet Take 1 tablet by mouth once daily. - EPINEPHrine (EPIPEN) 0.3 mg/0.3 mL auto-injector INJECT 1 PEN INTO LATERAL THIGH DIRECTED FOR ALLERGIC REACTIONS TO BEE/WASP STINGS MAY REPEAT IN 5-15 MINUTES IF SYMPTOMS PERSIST * *STAFF REORDER, 4 DAYS IN ADVANCE* - torsemide (DEMADEX) 20 mg tablet Take 2 tablets by mouth two times a day. - MEDICAL SUPPLY Lymphedema compression pump to both legs 1 hour daily. 60 mm Hg. New machine. - mometasone-formoterol (DULERA) 100-5 mcg/actuation inhaler Inhale 2 Puffs as instructed two times a day. - fluticasone (FLONASE) 50 mcg/actuation nasal spray INSTILL 2 SPRAYS IN EACH NOSTRIL DAILY - diphenoxylate-atropine (LOMOTIL) 2.5-0.025 mg per tablet Take 1 tablet by mouth four times a day as needed. - ondansetron (ZOFRAN) 4 mg tablet Take by mouth every 8 hours as needed for nausea/vomiting. - aspirin 81 mg chewable tablet Take 81 mg by mouth once daily. - carvedilol (COREG) 3.125 mg tablet Take 1 tablet by mouth two times a day. - ammonium lactate (LAC-HYDRIN) 12 % cream APPLY TOPICALLY TO AFFECTED AREA(S) ON LEGS AT BEDTIME - multivitamin-ferrous fumarate-folic acid (CERTAVITE-ANTIOXIDANT ) Take 1 tablet by mouth once daily. - Bagzm-1-RIM-EPA-Fish Oil 1,000 mg (120 mg-180 mg) cap Take 1 capsule by mouth once daily. - levothyroxine (SYNTHROID) 100 mcg tablet take one tablet by mouth daily one hour before breakfast - nystatin (NYAMYC) powder APPLY TOPICALLY TWICE [...] as needed for wheezing/shortness of breath. - acetaminophen (TYLENOL EXTRA STRENGTH) 500 mg tablet Take 2 tablets by mouth every 8 hours as needed for pain (For knee pain). - Gauze Bandage 2 X 2 bndg Apply 1 application to affected area twice daily. - cetirizine (ZYRTEC) 10 mg tablet Take [...] 4pm Dx:Q87.1 Problem List As Of Date 03/24/2024 Noted Resolved Other malaise and fatigue [R53.81, [...] 12/14/2014 Obstructive sleep apnea syndrome [G47.33] 12/14/2014 B (more content not included)... Normal [facility] Renal function 2000 panelon 03-24-2024 Albumin BCP dye [Mass/Vol] 4.2 g/dL 3.4 - 5.0 g/dL [facility] Anion gap [Moles/Vol] 17 mmol/L 10 - 2 0 mmol/L [facility] Calcium [Mass/Vol] 9.3 mg/dL 8.6 - 10. 6 mg/dL [facility] Chloride [Moles/Vol] 87 mmol/L Low 98 - 10 7 mmol/L [facility] CO2 [Moles/Vol] 39 mmol/L High 21 - 32 mmol/L [facility] Creatinine [Mass/Vol] 0.55 mg/dL 0.50 - 1.05 mg/dL [facility] eGFR - PINF [facility] Comment on above: Calculations of roby mated GFR are performed using the 2020 CKD-EPI Study Refit equation without the race variable for the IDMS-Traceable creatinine methods. https://jasn.asnjournals.org/content/early/ASN.547321 4907 Glucose [Mass/Vol] 79 mg/dL 74 - 99 mg/dL [facility] Interpretation and review of laboratory results Abnormal [facility] Phosphate [Mass/Vol] 3.4 mg/dL 2.5 - 4 .9 mg/dL [facility] Comment on above: The performance jeffrey acteristics of phosphorus testing in heparinized plasma have been validated by the individual laboratory site where testing is performed. Testing on heparinized plasma is not approved by the FDA; however, such approval is not necessary. Potassium [Moles/Vol] 3.8 mmol/L 3.5 - 5.3 mmol/L [facility] Sodium [Moles/Vol] 139 mmol/L 136 - 145 mmol/L [facility] Urea nitrogen [Mass/Vol] 14 mg/dL 6 - 23 mg/dL [facility] Renal function 2000 panelon 03-23-2024 Albumin BCP dye [Mass/Vol] 4.2 g/dL Normal 3.4-5.0 [facility] Comment on above: Performed By: #### 2 4362-6 #### ENEDINA Campbell ([id number]) [facility] ([facility]) [id number] [place] [address] Anion gap [Moles/Vol] 17 mmol/L Normal 10-20 [facility] Comment on above: Performed By: #### 2 4362-6 #### ENEDINA Campbell ([id number]) [facility] ([facility]) [id number] [place] [address]111 Calcium [Mass/Vol] 9.3 mg/dL Normal 8.6-10.6 [facility] Comment on above: Performed By: #### 2 4362-6 #### ENEDINA Campbell ([id number]) [facility] ([facility]) [address] [place] [address] Chloride [Moles/Vol] 87 mmol/L Low 98-107 [facility] Comment on above: Performed By: #### 2 4362-6 #### ENEDINA Campbell ([id number]) [facility] ([facility]) [address] [place] [address] CO2 [Moles/Vol] 39 mmol/L High 21-32 [facility] Comment on above: Performed By: #### 2 4362-6 #### ENEDINA Campbell ([id number]) [facility] ([facility]) [address] [place] [address] Creatinine [Mass/Vol] 0.55 mg/dL Normal 0.50-1.05 [facility] Comment on above: Performed By: #### 2 4362-6 #### ENEDINA Campbell ([id number]) [facility] ([facility]) [address] [place] [address] 20748 GFR/1.73 sq M.predicted MDRD (S/P/Bld) [Vol rate/Area] mL/min/{1.73_m2} Normal >60 [facility] Comment on above: Result Comment: Calc ulations of estimated GFR are performed using the 2020 CKD-EPI Study Refit equation without the race variable for the IDMS-Traceable creatinine methods. https://jasn.asnjournals.org/content//ASN.238826 3755 Performed By: #### 2 4362-6 #### ENEDINA Campbell ([id number]) [facility] ([facility]) [address] [place] [address] Glucose [Mass/Vol] 79 mg/dL Normal 74-99 [facility] Comment on above: Performed By: #### 2 4362-6 #### ENEDINA Campbell ([id number]) [facility] ([facility]) [address] [place] [address] Phosphate [Mass/Vol] 3.4 mg/dL Normal 2.5-4.9 [facility] Comment on above: Result Comment: The performance characteristics of phosphorus testing in heparinized plasma have been validated by the individual laboratory site where testing is performed. Testing on heparinized plasma is not approved by the FDA; however, such approval is not necessary. Performed By: #### 2 4362-6 #### ENEDINA Campbell ([id number]) [facility] ([facility]) [id number] [place] [address] Potassium [Moles/Vol] 3.8 mmol/L Normal 3.5-5.3 [facility] Comment on above: Performed By: #### 2 4362-6 #### ENEDINA Campbell ([id number]) [facility] ([facility]) [address] [place] [address] Sodium [Moles/Vol] 139 mmol/L Normal 136-145 [facility] Comment on above: Performed By: #### 2 4362-6 #### ENEDINA Campbell ([id number]) [facility] ([facility]) [address] [place] [address] Urea nitrogen [Mass/Vol] 14 mg/dL Normal 6-23 [facility] Comment on above: Performed By: #### 2 4362-6 #### ENEDINA Campbell ([id number]) [facility] ([facility]) [address] [place] [address] Tal 03-16-2024 CNPN Telephone (INTWS) SIA ABDUL ([id number]) 1980 F Date Time Provider Department 03/16/24 MARILEE THAKUR INTWS During your visit today, we recorded the following information about you: Lillie Marshall RN 03/16/2024 9:51 AM Signed Clarence from [facility] calls with a couple of things regarding patient: Patient for the past 2 days weight was 294. Today's weight was 300. Patient had stopped taking Bumex on 03/10/2024 due to medication causing a headache. At office visit with Dr. Corona on 03/12/2024 patient was put on torsemide 20 mg twice a day. Patient still has not received medication from pharmacy. Clarence hopes that patient will receive medication today so that patient can start taking medication. Clarence also notified tier lift truck operator regarding weight gain. Patient has a vaginal prolapse. This was noted last time patient was in hospital. Mother had reported that patient has had prolapse for awhile. Staff has noticed that when patient's wipes there is a little blood on the toilet paper. Clarence asking if this can be address at patient's appointment on 03/22/2024. Please review and advise, RODRÍGUEZ Carnes Joy, APRN.MANAGER HOTEL 03/17/2024 7:20 AM Signed Will address at upcoming appointment. Has patient received her lasix? Is she having any symptoms? Thank you Mika Kaplan APRN.MANAGER HOTEL María Avila MA 03/17/2024 9:44 AM Signed Clarence has not heard that medication was not received so he is assuming it arrived. Allergies As of Date: 03/16/2024 Noted Allergy Reaction BEE STING 02/28/2023 10 - Anaphylaxis BUMEX (BUMETANIDE) 03/12/2024 6 - Diarrhea 14 - Other: See Comments Comments: shikharoxann GHULAM (PHENYTOIN SODIUM EXTEND*01/28/2006 Date Reviewed: 03/12/2024 Reviewed by: Isela Leyva LPN - Fully Assessed Reason for Visit: Patient Update [1234] Prescriptions as of 03/17/2024 - IRAIDA 0.35 mg tablet Take 1 tablet by mouth once daily. - EPINEPHrine (EPIPEN) 0.3 mg/0.3 mL auto-injector INJECT 1 PEN INTO LATERAL THIGH DIRECTED FOR ALLERGIC REACTIONS TO BEE/WASP STINGS MAY REPEAT IN 5-15 MINUTES IF SYMPTOMS PERSIST * *STAFF REORDER, 4 DAYS IN ADVANCE* - torsemide (DEMADEX) 20 mg tablet Take 2 tablets by mouth two times a day. - MEDICAL SUPPLY Lymphedema compression pump to both legs 1 hour daily. 60 mm Hg. New machine. - mometasone-formoterol (DULERA) 100-5 mcg/actuation inhaler Inhale 2 Puffs as instructed two times a day. - fluticasone (FLONASE) 50 mcg/actuation nasal spray INSTILL 2 SPRAYS IN EACH NOSTRIL DAILY - diphenoxylate-atropine (LOMOTIL) 2.5-0.025 mg per tablet Take 1 tablet by mouth four times a day as needed. - ondansetron (ZOFRAN) 4 mg tablet Take by mouth every 8 hours as needed for nausea/vomiting. - aspirin 81 mg chewable tablet Take 81 mg by mouth once daily. - carvedilol (COREG) 3.125 mg tablet Take 1 tablet by mouth two times a day. - ammonium lactate (LAC-HYDRIN) 12 % cream APPLY TOPICALLY TO AFFECTED AREA(S) ON LEGS AT BEDTIME - multivitamin-ferrous fumarate-folic acid (CERTAVITE-ANTIOXIDANT ) Take 1 tablet by mouth once daily. - Ovyel-5-VZY-EPA-Fish Oil 1,000 mg (120 mg-180 mg) cap Take 1 capsule by mouth once daily. - levothyroxine (SYNTHROID) 100 mcg tablet take one tablet by mouth daily one hour before breakfast - nystatin (NYAMYC) powder APPLY TOPICALLY TWICE [...] as needed for wheezing/shortness of breath. - acetaminophen (TYLENOL EXTRA STRENGTH) 500 mg tablet Take 2 tablets by mouth every 8 hours as needed for pain (For knee pain). - Gauze Bandage 2 X 2 bndg Apply 1 application to affected area twice daily. - cetirizine (ZYRTEC) 10 mg tablet Take [...] 4pm Dx:Q87.1 Problem List As Of Date 03/16/2024 Noted Resolved Other malaise and fatigue [R53.81, R53.83] 08/06/2005 12/13/2013 Other dyspnea and respiratory abnormality [R06.*08/06/2005 12/13/2013 Other alteration of consciousness [R40.4] 08/06/2005 12/13/2013 WEIGHT GAIN, ABNORMAL [R63.5] 08/06/2005 12/13/2013 Prader-Willi syndrome [Q87.11] 08/27/2005 VENOUS INSUFFICIENCY [I87.2] 08/27/2005 12/14/2014 Mild intermittent asthma without complication [* (more content not included)... Normal [facility] CNOVon 03-12-2024 CNOV Office Visit (INTMWS ) SIA ABDUL ([id number]) 1980 F Date Time Provider Department 03/12/24 9:40 AM RAJEHS CORONA INTMWS During your visit today, we recorded the following information about you: Pulse Blood pressure Weight 74/minute 116/85 136.7 kg Rajesh Corona MD 03/13/2024 11:03 PM Signed This note was created using [employer]. Subjective Patient presents with: Hospital F/U: [facility] 02/28/24 for pulmonary edema and severe pain right shoulder/under arm Medication Problem: Bumex is causing headache and severe diarrhea and Jayshree is refusing to take the Bumex Weight Problem: Has had a weight gain of 13 lbs since discharged on 03/01/24. Is on 1000 calorie diet. 2000 mg sodium and 1.5 liter fluid restriction Consult: to Palliative Care Needing a written order for compression pumps: due to dx of lymph edema will be wearing the pumps during the day. PCP Marilee Thakur MD Sia Abdul was here with her caregiver. She was admitted 02/27-03/01 for flash pulmonary edema, acute on chronic congestive heart failure, acute on chronic respiratory failure. Her diuretic was changed to bumetanide. Since being placed on bumetanide, she started having headaches and was associated with some diarrhea, so she was refusing bumetanide and had gained weight. She was interested in getting back to torsemide, as that worked best compared with furosemide, or metolazone. She was also admitted 02/23 to 02/24 for demand ischemia NSTEMI and had a heart cath showing clean coronaries. 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 She had no skin breakdown to date, despite increased leg swelling. She needed a replacement for her venous pump, which was worn down, and was effectively used to control edema in conjunction with compression stockings, TYLER wraps and leg elevation when applicable. Caregiver reported she has been using a venous pump since 2003 and patient indicated the pressure setting was 60 mm Hg applied once a day. Review of Systems Constitutional: Positive for unexpected weight change. Negative for diaphoresis, fatigue and fever. HENT: Negative for congestion. Respiratory: Negative for cough, shortness of breath and wheezing. Cardiovascular: Negative for chest pain and palpitations. Genitourinary: Negative for difficulty urinating and dysuria. Neurological: Positive for headaches. Negative for dizziness. ACTIVE PROBLEM LIST Prader-Willi Syndrome Mild Intermittent Asthma Without Complication Allergic Rhinitis Vitamin D Deficiency Venous Insufficiency (Chronic) (Peripheral) Acquired Hypothyroidism Obstructive Sleep Apnea Syndrome Hypothalamic Hypogonadism (Hcc) Lymphedema of Left Lower Extremity Lymphedema of Right Lower Extremity Sleep Deprivation Pulmonary Hypertension (Hcc) Right Ventricular Dysfunction Acute Congestive Heart Failure (Hcc) Chronic Obstructive Pulmonary Disease, Unspecified Copd Type (Hcc) Nonrheumatic Mitral Valve Regurgitation Acute On Chronic Diastolic Congestive Heart Failure (Hcc) Right-Sided Congestive Heart Failure Secondary to Left-Sided Congestive Heart Failure (Hcc) Social History Tobacco Use Smoking status: Never Smokeless tobacco: Never Substance Use Topics Alcohol use: No Drug use: No Current Outpatient Medications Medication Sig mometasone-formoterol (DULERA) 100-5 mcg/actuation inhaler Inhale 2 Puffs as instructed two times a day. fluticasone (FLONASE) 50 mcg/actuation nasal spray INSTILL 2 SPRAYS IN EACH NOSTRIL DAILY diphenoxylate-atropine (LOMOTIL) 2.5-0.025 mg per tablet Take 1 tablet by mouth four times a day as needed. ondansetron (ZOFRAN) 4 mg tablet Take by mouth every 8 hours as needed for nausea/vomiting. aspirin 81 mg chewable tablet Take 81 mg by mouth once daily. carvedilol (COREG) 3.125 mg tablet Take 1 tablet by mouth two times a day. ammonium lactate (LAC-HYDRIN) 12 % cream APPLY TOPICALLY TO AFFECTED AREA(S) ON LEGS AT BEDTIME multivitamin-ferrous fumarate-folic acid (CERTAVITE-ANTIOXIDANT ) Take 1 tablet by mouth once daily. Dsyqx-5-JCN-EPA-Fish Oil 1,000 mg (120 mg-180 mg) cap Take 1 capsule by mouth once daily. levothyroxine (SYNTHROID) 100 mcg tablet take one tablet by mouth daily one hour before breakfast nystatin (NYAMYC) powder APPLY TOPICALLY TWICE DAILY TO AFFECTED AREA(S) ON ABDOMINAL FOLDS OYSTER SHELL CALCIUM-VITAMIN D 500 mg-5 mcg (200 unit) per tablet take one tablet by mouth twice daily with meals clotrimazole (LOTRIMIN) 1 % cream APPLY TOPICALLY TO AFFECTED AREA(S) ON BILATERAL GROIN TWICE DAILY (Patient taking differently: as needed. APPLY TOPICALLY TO AFFECTED AREA(S) ON BILATERAL GROIN TWICE DAILY) albuterol HFA (VENTOLIN HFA) 90 mcg/actuation inhaler Inhale 2 Puffs as instructed every 4 hours as needed for wheezing/shortness of breath. (more content not included)... Normal [facility] Tal 03-12-2024 [facility] Telephone (INTMWS) SIA ABDUL ([id number]) 1980 F Date Time Provider Department 03/12/24 GANTA, MARILEE INTMWS During your visit today, we recorded the following information about you: Eulalia Laureano, RODRÍGUEZ 03/12/2024 1:09 PM Signed Blanca with [facility] calls to let provider know that patient stopped taking Bumex Friday Morning d/t causing a headache. Patient has had a 13 lb weight gain since March 01, 2024. Patient also had a fall yesterday and was not able to get up so paramedics had to be contacted. No injuries from that. Patient was seen today by Dr. Corona. Notified Blanca that patient was placed on torsemide for 40 mg twice daily for CHF and lymph edema pumps were ordered. Blanca not sure if provider aware of fall. Sending as FYI to provider that saw patient. Nothing further needed at this time. Eulalai Laureano RN Allergies As of Date: 03/12/2024 Noted Allergy Reaction BEE STING 02/28/2023 10 - Anaphylaxis BUMEX (BUMETANIDE) 03/12/2024 6 - Diarrhea 14 - Other: See Comments Comments: shikharoxann GHULAM (PHENYTOIN SODIUM EXTEND*01/28/2006 Date Reviewed: 03/12/2024 Reviewed by: Isela Leyva LPN - Fully Assessed Reason for Visit: Patient Update [1234] Prescriptions as of 03/12/2024 - IRAIDA 0.35 mg tablet Take 1 tablet by mouth once daily. - EPINEPHrine (EPIPEN) 0.3 mg/0.3 mL auto-injector INJECT 1 PEN INTO LATERAL THIGH DIRECTED FOR ALLERGIC REACTIONS TO BEE/WASP STINGS MAY REPEAT IN 5-15 MINUTES IF SYMPTOMS PERSIST * *STAFF REORDER, 4 DAYS IN ADVANCE* - torsemide (DEMADEX) 20 mg tablet Take 2 tablets by mouth two times a day. - MEDICAL SUPPLY Lymphedema compression pump to both legs 1 hour daily. 60 mm Hg. New machine. - mometasone-formoterol (DULERA) 100-5 mcg/actuation inhaler Inhale 2 Puffs as instructed two times a day. - fluticasone (FLONASE) 50 mcg/actuation nasal spray INSTILL 2 SPRAYS IN EACH NOSTRIL DAILY - diphenoxylate-atropine (LOMOTIL) 2.5-0.025 mg per tablet Take 1 tablet by mouth four times a day as needed. - ondansetron (ZOFRAN) 4 mg tablet Take by mouth every 8 hours as needed for nausea/vomiting. - aspirin 81 mg chewable tablet Take 81 mg by mouth once daily. - carvedilol (COREG) 3.125 mg tablet Take 1 tablet by mouth two times a day. - ammonium lactate (LAC-HYDRIN) 12 % cream APPLY TOPICALLY TO AFFECTED AREA(S) ON LEGS AT BEDTIME - multivitamin-ferrous fumarate-folic acid (CERTAVITE-ANTIOXIDANT ) Take 1 tablet by mouth once daily. - Jqifd-6-ZWX-EPA-Fish Oil 1,000 mg (120 mg-180 mg) cap Take 1 capsule by mouth once daily. - levothyroxine (SYNTHROID) 100 mcg tablet take one tablet by mouth daily one hour before breakfast - nystatin (NYAMYC) powder APPLY TOPICALLY TWICE [...] as needed for wheezing/shortness of breath. - acetaminophen (TYLENOL EXTRA STRENGTH) 500 mg tablet Take 2 tablets by mouth every 8 hours as needed for pain (For knee pain). - Gauze Bandage 2 X 2 bndg Apply 1 application to affected area twice daily. - cetirizine (ZYRTEC) 10 mg tablet Take [...] 4pm Dx:Q87.1 Problem List As Of Date 03/12/2024 Noted Resolved Other malaise and fatigue [R53.81, [...] (chronic) (peripheral) [I8*12/14/2014 Acquired hypothyroidism [E03.9] 12/14/2014 (more content not included)... Normal [facility]2024 [facility] SIA ABDUL ([id number]) 1980 F Date Time Provider Department 03/11/24 MIKA KAPLAN During your visit today, we recorded the following information about you: Candelaria Ball LPN 03/11/2024 9:45 AM Signed Shobha from [facility] calling patient said Bumex has been giving her a headache. She was taken off the generic lasix and put on bumex 1 mg one tablet twice daily when she was in [facility]. She was discharged on 03/01/2024, patient has gained 13 pounds since that date. She has refused to take Bumex last night and this morning dose. Patient uses [facility] for her pharmacy. Asking if she can have medication discontinued and placed on something else? Her next appt is scheduled on 03/22/2024 with Mika Kaplan for a physical. Please advise Sagar Stewart MD 03/11/2024 9:47 AM Signed Would recommend seeing a provider sooner since has gained weight off diuretic. If short of breath, to Teresa Caruso RN 03/11/2024 10:57 AM Signed Shobha from [facility] called and is notified of providers message and instructions. She voices understanding and states Pt isn't SOB. Pt scheduled tomorrow with Dr Corona at 940 am. Teresa Ferrera RN Allergies As of Date: 03/11/2024 Noted Allergy Reaction BEE STING 02/28/2023 10 - Anaphylaxis DILANTIN (PHENYTOIN SODIUM EXTEND*01/28/2006 Date Reviewed: 02/16/2024 Reviewed by: Lacie Reyes LPN - Fully Assessed Reason for Visit: Medication Question [5168] Prescriptions as of 03/11/2024 - midodrine (PROAMITINE) 5 mg tablet Take 5 mg by mouth three times a day. - mometasone-formoterol (DULERA) 100-5 mcg/actuation inhaler Inhale 2 Puffs as instructed two times a day. - fluticasone (FLONASE) 50 mcg/actuation nasal spray INSTILL 2 SPRAYS IN EACH NOSTRIL DAILY - diphenoxylate-atropine (LOMOTIL) 2.5-0.025 mg per tablet Take 1 tablet by mouth four times a day as needed. - ondansetron (ZOFRAN) 4 mg tablet Take by mouth every 8 hours as needed for nausea/vomiting. - aspirin 81 mg chewable tablet Take 81 mg by mouth once daily. - metOLazone (ZAROXOLYN) 2.5 mg tablet Take 1 tablet by mouth once daily. - carvedilol (COREG) 3.125 mg tablet Take 1 tablet by mouth two times a day. - lisinopril (ZESTRIL) 5 mg tablet Take 1 tablet by mouth once daily. - potassium chloride 20 mEq TbER Take 1 tablet by mouth once daily. - ammonium lactate (LAC-HYDRIN) 12 % cream APPLY TOPICALLY TO AFFECTED AREA(S) ON LEGS AT BEDTIME - Leg Brace (TRUE CMFT KNEE COMPRESSION) misc 1 Each once daily. - multivitamin-ferrous fumarate-folic acid (CERTAVITE-ANTIOXIDANT ) Take 1 tablet by mouth once daily. - Tlzmf-1-XXQ-EPA-Fish Oil 1,000 mg (120 mg-180 mg) cap [...] mouth daily one hour before breakfast - nystatin (NYAMYC) powder APPLY TOPICALLY TWICE [...] 4pm Dx:Q87.1 Problem List As Of Date 03/11/2024 Noted Resolved Other malaise and fatigue [R53.81, R53.83] 08/06/2005 12/13/2013 Other dyspnea and respiratory abnormality [R06.*08/06/2005 12/13/2013 Other alteration of consciousnes (more content not included)... Normal [facility] 03-09-2024 [facility] SIA ABDUL ([id number]) 1980 F Date Time Provider Department 03/09/24 MARILEE THAKUR INTWS During your visit today, we recorded the following information about you: Pepper Walsh RN 03/09/2024 11:48 AM Signed Leia Physical Therapist with [facility] calling and requesting verbal order to continue in-home Physical Therapy for patient. Please call Leia at [phone]. May leave detailed message on this secure VM. RODRÍGUEZ Blake Joy, APRN.MANAGER [employer]EL 03/12/2024 8:11 AM Signed Ok to continue in home physical therapy. Thank you Mika Kaplan APRN.Pepper Boss RN 03/12/2024 8:17 AM Signed Leia Physical Therapist with [facility], notified. Pepper Walsh RN Allergies As of Date: 03/09/2024 Noted Allergy Reaction BEE STING 02/28/2023 10 - Anaphylaxis DILANTIN (PHENYTOIN SODIUM EXTEND*01/28/2006 Date Reviewed: 02/16/2024 Reviewed by: Lacie Reyes LPN - Fully Assessed Reason for Visit: Order Request [Other] Prescriptions as of 03/12/2024 - midodrine (PROAMITINE) 5 mg tablet Take 5 mg by mouth three times a day. - mometasone-formoterol (DULERA) 100-5 mcg/actuation inhaler Inhale 2 Puffs as instructed two times a day. - fluticasone (FLONASE) 50 mcg/actuation nasal spray INSTILL 2 SPRAYS IN EACH NOSTRIL DAILY - diphenoxylate-atropine (LOMOTIL) 2.5-0.025 mg per tablet Take 1 tablet by mouth four times a day as needed. - ondansetron (ZOFRAN) 4 mg tablet Take by mouth every 8 hours as needed for nausea/vomiting. - aspirin 81 mg chewable tablet Take 81 mg by mouth once daily. - metOLazone (ZAROXOLYN) 2.5 mg tablet Take 1 tablet by mouth once daily. - carvedilol (COREG) 3.125 mg tablet Take 1 tablet by mouth two times a day. - lisinopril (ZESTRIL) 5 mg tablet Take 1 tablet by mouth once daily. - potassium chloride 20 mEq TbER Take 1 tablet by mouth once daily. - ammonium lactate (LAC-HYDRIN) 12 % cream APPLY TOPICALLY TO AFFECTED AREA(S) ON LEGS AT BEDTIME - Leg Brace (TRUE CMFT KNEE COMPRESSION) misc 1 Each once daily. - multivitamin-ferrous fumarate-folic acid (CERTAVITE-ANTIOXIDANT ) Take 1 tablet by mouth once daily. - Usvcw-7-FVD-EPA-Fish Oil 1,000 mg (120 mg-180 mg) cap [...] mouth daily one hour before breakfast - nystatin (NYAMYC) powder APPLY TOPICALLY TWICE [...] 4pm Dx:Q87.1 Problem List As Of Date 03/09/2024 Noted Resolved Other malaise and fatigue [R53.81, [...] knee, leg (except thigh), and ank*12/04/2009 12/13/2013 Amenorr (more content not included)... Normal [facility] Ammoniaon 03-01-2024 Ammonia (P) [Moles/Vol] 35.0 umol/L High [facility] Comment on above: Performed By: #### L 503.5510 ####[facility] [address] [place], [address] Basic Metabolic Profile (BMP )on 03-01-2024 BUN/CRE 39.1 RATIO High 12-27 [facility] Comment on above: Performed By: #### L 500.2500, L501.2300, L501.5200 ####[facility] [address] [place], [address] CA,Total 8.6 mg/dL Normal 8.5-10.1 [facility] Comment on above: Performed By: #### L 500.2500, L501.2300, L501.5200 ####[facility] [address] [place], [address] Chloride [Moles/Vol] 100 mmol/L Normal 98-107 [facility] Comment on above: Performed By: #### L 500.2500, L501.2300, L501.5200 ####[facility] [address] [place], [address] CO2 [Moles/Vol] 38.0 mmol/L High 21.0-32.0 [facility] Comment on above: Performed By: #### L 500.2500, L501.2300, L501.5200 ####[facility] [address] [place], [address] Creatinine [Mass/Vol] 0.66 mg/dL Normal 0.55-1.02 [facility] Comment on above: Result Comment: The validity of the calculated GFR GFRAA in patients over70 years has not been determined. Clinical correlation isessential. Performed By: #### L 500.2500, L501.2300, L501.5200 ####[facility] [address] [place], [address] ECRCL 140.85 ml/min Normal [facility] Comment on above: Performed By: #### L 500.2500, L501.2300, L501.5200 ####[facility] [address] [place], [address] EST GFR - AA 125 mL/min Normal >60 [facility] Comment on above: Result Comment: Afri can [place] GFR Calc Performed By: #### L 500.2500, L501.2300, L501.5200 ####[facility] [address] [place], [address] GAP 1 Low 5-15 [facility] Comment on above: Performed By: #### L 500.2500, L501.2300, L501.5200 ####[facility] [address] [place], [address] GFR/1.73 sq M.predicted among non-blacks MDRD (S/P/Bld) [Vol rate/Area] 104 mL/min/{1.73_m2} Normal >60 [facility] Comment on above: Result Comment: Non- GFR Calc Performed By: #### L 500.2500, L501.2300, L501.5200 ####[facility] [address] [place], [address] Glucose [Mass/Vol] 85 mg/dL Normal 74-106 [facility] Comment on above: Performed By: #### L 500.2500, L501.2300, L501.5200 ####[facility] [address] [place], [address] Potassium [Moles/Vol] 4.6 mmol/L Normal 3.5-5.1 [facility] Comment on above: Result Comment: Slig ht Hemolysis, Result may be falsely increased. Performed By: #### L 500.2500, L501.2300, L501.5200 ####[facility] [address] [place], [address] Sodium [Moles/Vol] 138 mmol/L Normal 136-145 [facility] Comment on above: Performed By: #### L 500.2500, L501.2300, L501.5200 ####[facility] [address] [place], [address] Urea nitrogen [Mass/Vol] 26 mg/dL High 7-18 [facility] Comment on above: Performed By: #### L 500.2500, L501.2300, L501.5200 ####[facility] [address] [place], [address] Bedside Glucoseon 03-01-2024 FINGERSTICK GLU 91 mg/dL Normal 74-106 [facility] Comment on above: Result Comment: ETHAN PRITCHETT OF PATIENT CARE PER NURSING PROTOCOL Performed By: #### L 501.080 ####[facility] [address] [place], [address] Brain/Head without Contrasto n 03-01-2024 Brain/Head without Contrast Normal [facility] Magnesiumon 03-01-2024 Magnesium [Mass/Vol] 2.3 mg/dL Normal 1.6-2.6 [facility] Comment on above: Result Comment: Slig ht Hemolysis, Result may be falsely increased. Performed By: #### L 500.2500, L501.2300, L501.5200 ####[facility] [address] [place], [address] Phosphoruson 03-01-2024 Phosphate [Mass/Vol] 3.6 mg/dL Normal 2.5-4.9 [facility] Comment on above: Performed By: #### L 500.2500, L501.2300, L501.5200 ####[facility] [address] [place], [address] Venous Blood Gason 4 Blood Gas Type SATISH [facility] Comment on above: Performed By: #### L 9000.0810 ####[facility] [address] [place], [address] CO2 [Moles/Vol] 39 mmol/L High 23-33 [facility] Comment on above: Performed By: #### L 9000.0810 ####[facility] [address] [place], [address] HCO3 (Bld) [Moles/Vol] 37 mmol/L High 22-26 [facility] Comment on above: Performed By: #### L 9000.0810 ####[facility] [address] [place], [address] O2 Delivery Dev Not entered [facility] Comment on above: Performed By: #### L 9000.0810 ####[facility] [address] [place], [address] SITE Not entered [facility] Comment on above: Performed By: #### L 9000.0810 ####[facility] [address] [place], [address] VBG BE 11 mmol/L High -1.0-3.5 [facility] Comment on above: Performed By: #### L 9000.0810 ####[facility] [address] [place], [address] VBG pCO2 65.5 mmHg High 41-51 [facility] Comment on above: Performed By: #### L 9000.0810 ####[facility] [address] [place], [address] VBG pH 7.35 Normal 7.32-7.42 [facility] Comment on above: Performed By: #### L 9000.0810 ####[facility] [address] [place], [address] VBG PO2 159 mmHg High 25-40 [facility] Comment on above: Performed By: #### L 9000.0810 ####[facility] [address] [place], [address] VBG SO2 99 High 50-70 [facility] Comment on above: Performed By: #### L 9000.0810 ####[facility] [address] [place], [address] BNP,B-Type NATRIURETIC PEPTI Christa 02-29-2024 Natriuretic peptide B (Bld) [Mass/Vol] 312.0 pg/mL High 0-100 [facility] Comment on above: Performed By: #### L 503.6620, L500.2500 ####[facility] [address] [place], [address] Basic Metabolic Profile (BMP )on 02-29-2024 BUN/CRE 40.5 RATIO High 10-20 [facility] Comment on above: Performed By: #### L 503.6620, L500.2500 ####[facility] [address] [place], [address] CA,Total 8.4 mg/dL Low 8.5-10.1 [facility] Comment on above: Performed By: #### L 503.6620, L500.2500 ####[facility] [address] [place], [address] Chloride [Moles/Vol] 102 mmol/L Normal 98-107 [facility] Comment on above: Performed By: #### L 503.6620, L500.2500 ####[facility] [address] [place], [address] CO2 [Moles/Vol] 39.0 mmol/L High 21.0-32.0 [facility] Comment on above: Performed By: #### L 503.6620, L500.2500 ####[facility] [address] [place], [address] Creatinine [Mass/Vol] 0.62 mg/dL Normal 0.55-1.02 [facility] Comment on above: Result Comment: The validity of the calculated GFR GFRAA in patients over70 years has not been determined. Clinical correlation isessential. Performed By: #### L 503.6620, L500.2500 ####[facility] [address] [place], [address] ECRCL 149.86 ml/min Normal [facility] Comment on above: Performed By: #### L 503.6620, L500.2500 ####[facility] [address] [place], [address] EST GFR - AA 137 mL/min Normal >60 [facility] Comment on above: Result Comment: Afri can [place] GFR Calc Performed By: #### L 503.6620, L500.2500 ####[facility] [address] [place], [address] GAP 1 Low 5-15 [facility] Comment on above: Performed By: #### L 503.6620, L500.2500 ####[facility] [address] [place], [address] GFR/1.73 sq M.predicted among non-blacks MDRD (S/P/Bld) [Vol rate/Area] 113 mL/min/{1.73_m2} Normal >60 [facility] Comment on above: Result Comment: Non- GFR Calc Performed By: #### L 503.6620, L500.2500 ####[facility] [address] [place], [address] Glucose [Mass/Vol] 89 mg/dL Normal 74-106 [facility] Comment on above: Performed By: #### L 503.6620, L500.2500 ####[facility] [address] [place], [address] Potassium [Moles/Vol] 4.2 mmol/L Normal 3.5-5.1 [facility] Comment on above: Performed By: #### L 503.6620, L500.2500 ####[facility] [address] [place], [address] Sodium [Moles/Vol] 142 mmol/L Normal 136-145 [facility] Comment on above: Performed By: #### L 503.6620, L500.2500 ####[facility] [address] [place], [address] Urea nitrogen [Mass/Vol] 25 mg/dL High 7-18 [facility] Comment on above: Performed By: #### L 503.6620, L500.2500 ####[facility] [address] [place], [address] BNP,B-Type NATRIURETIC PEPTI Christa 02-28-2024 Natriuretic peptide B (Bld) [Mass/Vol] 429.2 pg/mL High 0-100 [facility] Comment on above: Performed By: #### L 503.6620, L500.2500, L100.0500 ####[facility] [address] [place], [address] Basic Metabolic Profile (BMP )on 02-28-2024 BUN/CRE 42.7 RATIO High 10-20 [facility] Comment on above: Performed By: #### L 503.6620, L500.2500, L100.0500 ####[facility] [address] [place], [address] CA,Total 8.3 mg/dL Low 8.5-10.1 [facility] Comment on above: Performed By: #### L 503.6620, L500.2500, L100.0500 ####[facility] [address] [place], [address] Chloride [Moles/Vol] 103 mmol/L Normal 98-107 [facility] Comment on above: Performed By: #### L 503.6620, L500.2500, L100.0500 ####[facility] [address] [place], [address] CO2 [Moles/Vol] 39.0 mmol/L High 21.0-32.0 [facility] Comment on above: Performed By: #### L 503.6620, L500.2500, L100.0500 ####[facility] [address] [place], [address] Creatinine [Mass/Vol] 0.68 mg/dL Normal 0.55-1.02 [facility] Comment on above: Result Comment: The validity of the calculated GFR GFRAA in patients over70 years has not been determined. Clinical correlation isessential. Performed By: #### L 503.6620, L500.2500, L100.0500 ####[facility] [address] [place], [address] ECRCL 136.43 ml/min Normal [facility] Comment on above: Performed By: #### L 503.6620, L500.2500, L100.0500 ####[facility] [address] [place], [address] EST GFR - AA 122 mL/min Normal >60 [facility] Comment on above: Result Comment: Afri can [place] GFR Calc Performed By: #### L 503.6620, L500.2500, L100.0500 ####[facility] [address] [place], [address] GAP 2 Low 5-15 [facility] Comment on above: Performed By: #### L 503.6620, L500.2500, L100.0500 ####[facility] [address] [place], [address] GFR/1.73 sq M.predicted among non-blacks MDRD (S/P/Bld) [Vol rate/Area] 101 mL/min/{1.73_m2} Normal >60 [facility] Comment on above: Result Comment: Non- GFR Calc Performed By: #### L 503.6620, L500.2500, L100.0500 ####[facility] [address] [place], [address] Glucose [Mass/Vol] 93 mg/dL Normal 74-106 [facility] Comment on above: Performed By: #### L 503.6620, L500.2500, L100.0500 ####[facility] [address] [place], [address] Potassium [Moles/Vol] 4.1 mmol/L Normal 3.5-5.1 [facility] Comment on above: Performed By: #### L 503.6620, L500.2500, L100.0500 ####[facility] [address] [place], [address] Sodium [Moles/Vol] 144 mmol/L Normal 136-145 [facility] Comment on above: Performed By: #### L 503.6620, L500.2500, L100.0500 ####[facility] [address] [place], [address] Urea nitrogen [Mass/Vol] 29 mg/dL High 7-18 [facility] Comment on above: Performed By: #### L 503.6620, L500.2500, L100.0500 ####[facility] [address] [place], [address] CBC-Complete Blood Cnt No Di ffon 02-28-2024 Erythrocyte distribution width (RBC) [Ratio] 13.2 % Normal 11.6-14.6 [facility] Comment on above: Performed By: #### L 503.6620, L500.2500, L100.0500 ####[facility] [address] [place], [address] Hematocrit (Bld) [Volume fraction] 35.3 % Low 37-47 [facility] Comment on above: Performed By: #### L 503.6620, L500.2500, L100.0500 ####[facility] [address] [place], [address] Hemoglobin (Bld) [Mass/Vol] 10.5 g/dL Low 12.0-15.0 [facility] Comment on above: Performed By: #### L 503.6620, L500.2500, L100.0500 ####[facility] [address] [place], [address] MCH (RBC) [Entitic mass] 31.3 pg Normal 27.0-32.0 [facility] Comment on above: Performed By: #### L 503.6620, L500.2500, L100.0500 ####[facility] [address] [place], [address] MCHC (RBC) [Mass/Vol] 29.7 g/dL Low 32-36 [facility] Comment on above: Performed By: #### L 503.6620, L500.2500, L100.0500 ####[facility] [address] [place], [address] MCV (RBC) [Entitic vol] 105.4 fL High 81-99 [facility] Comment on above: Performed By: #### L 503.6620, L500.2500, L100.0500 ####[facility] [address] [place], [address] Platelet mean volume (Bld) [Entitic vol] 11.6 fL Normal 6.2-12.0 [facility] Comment on above: Performed By: #### L 503.6620, L500.2500, L100.0500 ####[facility] [address] [place], [address] Platelets (Bld) [#/Vol] 149 10*3/uL Low 150-450 [facility] Comment on above: Performed By: #### L 503.6620, L500.2500, L100.0500 ####[facility] [address] [place], [address] RBC (Bld) [#/Vol] 3.35 10*6/uL Low 4.2-5.4 [facility] Comment on above: Performed By: #### L 503.6620, L500.2500, L100.0500 ####[facility] [address] [place], [address] RDW SD 50.5 fl High 35.1-43.9 [facility] Comment on above: Performed By: #### L 503.6620, L500.2500, L100.0500 ####[facility] [address] [place], [address] WBC (Bld) [#/Vol] 12.9 10*3/uL High 4.4-11.0 [facility] Comment on above: Performed By: #### L 503.6620, L500.2500, L100.0500 ####[facility] [address] [place], [address] .Auto Diffon 02-27-2024 Basophil, Absolute 0.0 10 3/mcL Normal 0.0-0.2 [facility] Comment on above: Performed By: #### C BC, ANEU, GFR, PBNP, BMP, TROPHS, MG, MDW, ADIFF #### [address] [address] Basophils/100 WBC (Bld) 0.3 % Normal 0.0-2.5 [facility] Comment on above: Performed By: #### C BC, ANEU, GFR, PBNP, BMP, TROPHS, MG, MDW, ADIFF #### [address] [address] Eosinophil, Absolute 0.4 10 3/mcL Normal 0.0-0.7 [facility] Comment on above: Performed By: #### C BC, ANEU, GFR, PBNP, BMP, TROPHS, MG, MDW, ADIFF #### [address] [address] Eosinophils/100 WBC (Bld) 2.9 % Normal 0.0-7.0 [facility] Comment on above: Performed By: #### C BC, ANEU, GFR, PBNP, BMP, TROPHS, MG, MDW, ADIFF #### [address] [address] Lymphocyte, Absolute 2.3 10 3/mcL Normal 0.9-4.3 [facility] Comment on above: Performed By: #### C BC, ANEU, GFR, PBNP, BMP, TROPHS, MG, MDW, ADIFF #### [address] [address] Lymphocytes/100 WBC (Bld) 15.1 % Low 20.0-40.0 [facility] Comment on above: Performed By: #### C BC, ANEU, GFR, PBNP, BMP, TROPHS, MG, MDW, ADIFF #### [address] [address] Monocyte, Absolute 1.5 10 3/mcL High 0.1-1.4 [facility] Comment on above: Performed By: #### C BC, ANEU, GFR, PBNP, BMP, TROPHS, MG, MDW, ADIFF #### [address] [address] Monocytes/100 WBC (Bld) 10.0 % Normal 2.0-13.0 [facility] Comment on above: Performed By: #### C BC, ANEU, GFR, PBNP, BMP, TROPHS, MG, MDW, ADIFF #### [address] [address] Neutrophils/100 WBC (Bld) 71.5 % Normal 50.0-75.0 [facility] Comment on above: Performed By: #### C BC, ANEU, GFR, PBNP, BMP, TROPHS, MG, MDW, ADIFF #### [address] [address] .GFRon 02-27-2024 GFR Non- 64 ml/min/1.73sqm [facility] Comment on above: Result Comment: GFR Population [...] meters Performed By: #### C BC, ANEU, GFR, PBNP, BMP, TROPHS, MG, MDW, ADIFF #### [address] [address] GFR 78 ml/min/1.73sqm Normal [facility] Comment on above: Result Comment: GFR Population [...] meters Performed By: #### C BC, ANEU, GFR, PBNP, BMP, TROPHS, MG, MDW, ADIFF #### [address] [address] .MDWon 02-27-2024 Monocyte Distribution Width Not performed Normal 0.00-20.00 [facility] Comment on above: Result Comment: MDW testing unable to be performed on [id number] instrumentation. Performed By: #### C BC, ANEU, GFR, PBNP, BMP, TROPHS, MG, MDW, ADIFF #### [address] [address] .NEUABSon 02-27-2024 Neutrophil, Absolute 11.0 10 3/mcL High 2.3-8.1 [facility] Comment on above: Performed By: #### C BC, ANEU, GFR, PBNP, BMP, TROPHS, MG, MDW, ADIFF #### [address] [address] BMPon 02-27-2024 BUN/Creatinine Ratio 39 ratio High 7-27 [facility] Comment on above: Performed By: #### C BC, ANEU, GFR, PBNP, BMP, TROPHS, MG, MDW, ADIFF #### [address] [address] Calcium [Mass/Vol] 8.7 mg/dL Normal 8.4-10.2 [facility] Comment on above: Performed By: #### C BC, ANEU, GFR, PBNP, BMP, TROPHS, MG, MDW, ADIFF #### [address] [address] Chloride [Moles/Vol] 101 mmol/L Normal 98-107 [facility] Comment on above: Performed By: #### C BC, ANEU, GFR, PBNP, BMP, TROPHS, MG, MDW, ADIFF #### [address] [address] CO2 [Moles/Vol] 39 mmol/L High 22-29 [facility] Comment on above: Performed By: #### C BC, ANEU, GFR, PBNP, BMP, TROPHS, MG, MDW, ADIFF #### [address] [address] Creatinine [Mass/Vol] 0.96 mg/dL Normal 0.55-1.02 [facility] Comment on above: Result Comment: Test ing performed on [employer] Dimension EXL analyzer using a modified kinetic Melanie technique. Performed By: #### C BC, ANEU, GFR, PBNP, BMP, TROPHS, MG, MDW, ADIFF #### [address] [address] Electrolyte Balance 4.0 mEq/L Normal 4.0-15.0 [facility] Comment on above: Performed By: #### C BC, ANEU, GFR, PBNP, BMP, TROPHS, MG, MDW, ADIFF #### [address] [address] Glucose [Mass/Vol] 100 mg/dL Normal 70-105 [facility] Comment on above: Performed By: #### C BC, ANEU, GFR, PBNP, BMP, TROPHS, MG, MDW, ADIFF #### [address] [address] Potassium [Moles/Vol] 4.8 mmol/L Normal 3.5-5.1 [facility] Comment on above: Performed By: #### C BC, ANEU, GFR, PBNP, BMP, TROPHS, MG, MDW, ADIFF #### [address] [address] Sodium [Moles/Vol] 144 mmol/L Normal 136-145 [facility] Comment on above: Performed By: #### C BC, ANEU, GFR, PBNP, BMP, TROPHS, MG, MDW, ADIFF #### [address] [address] Urea nitrogen [Mass/Vol] 37 mg/dL High 7-18 [facility] Comment on above: Performed By: #### C BC, ANEU, GFR, PBNP, BMP, TROPHS, MG, MDW, ADIFF #### [address] [address] CBCon 02-27-2024 Erythrocyte distribution width (RBC) [Ratio] 13.0 % Normal 11.5-15.5 [facility] Comment on above: Performed By: #### C BC, ANEU, GFR, PBNP, BMP, TROPHS, MG, MDW, ADIFF #### [address] [address] Hematocrit (Bld) [Volume fraction] 37.9 % Normal 34.0-46.0 [facility] Comment on above: Performed By: #### C BC, ANEU, GFR, PBNP, BMP, TROPHS, MG, MDW, ADIFF #### [address] [address] Hgb 12.1 G/dL Normal 12.0-16.0 [facility] Comment on above: Performed By: #### C BC, ANEU, GFR, PBNP, BMP, TROPHS, MG, MDW, ADIFF #### [address] [address] MCH (RBC) [Entitic mass] 32.0 pg Normal 27.0-33.0 [facility] Comment on above: Performed By: #### C BC, ANEU, GFR, PBNP, BMP, TROPHS, MG, MDW, ADIFF #### [address] [address] MCHC 32.0 G/dL Normal 32.0-36.0 [facility] Comment on above: Performed By: #### C BC, ANEU, GFR, PBNP, BMP, TROPHS, MG, MDW, ADIFF #### [address] [address] MCV (RBC) [Entitic vol] 100.1 fL High 80.0-99.0 [facility] Comment on above: Performed By: #### C BC, ANEU, GFR, PBNP, BMP, TROPHS, MG, MDW, ADIFF #### [address] [address] Platelet 169 10 3/mcL Normal 150-450 [facility] Comment on above: Performed By: #### C BC, ANEU, GFR, PBNP, BMP, TROPHS, MG, MDW, ADIFF #### [address] [address] Platelet mean volume (Bld) [Entitic vol] 8.9 fL Normal 6.6-10.5 [facility] Comment on above: Performed By: #### C BC, ANEU, GFR, PBNP, BMP, TROPHS, MG, MDW, ADIFF #### [address] [address] RBC 3.79 10 6/mcL Low 4.10-5.30 [facility] Comment on above: Performed By: #### C BC, ANEU, GFR, PBNP, BMP, TROPHS, MG, MDW, ADIFF #### [address] [address] WBC 15.4 10 3/mcL High 4.5-10.8 [facility] Comment on above: Performed By: #### C BC, ANEU, GFR, PBNP, BMP, TROPHS, MG, MDW, ADIFF #### [address] [address] H AND P Exam - Hospitaliston 02-27-2024 H&P Exam - Hospitalist Normal [facility] LABORATORYOrdered By: SYSTEM SYSTEM on 02-27-2024 Troponin I.cardiac DL <= 0.01 ng/mL [Mass/Vol] 90 ng/L High 0 - 51 ng/L AO ADM SS Comment on above: Interpretive Data: H igh Sensitive Troponin I Reference Ranges: Female: 0-51 ng/L Male: 0-76 ng/L Testing performed on [employer] using a homogeneous sandwich chemiluminescent immunoassay based on [employer] technology. Basophils (Bld) [#/Vol] 0.0 103/mcL Normal 0.0 - 0.2 10^3/mcL AO Workflow SS Basophils/100 WBC (Bld) 0.3 % Normal 0.0 - 2.5 % AO Workflow SS Calcium [Mass/Vol] 8.7 mg/dL Normal 8.4 - 10. 2 mg/dL AO ADM SS Chloride [Moles/Vol] 101 mmol/L Normal 98 - 10 7 mmol/L AO ADM SS CO2 [Moles/Vol] 39 mmol/L High 22 - 29 mmol/L AO ADM SS Creatinine [Mass/Vol] 0.96 mg/dL Normal 0.55 - 1.02 mg/dL AO ADM SS Comment on above: Interpretive Data: T esting performed on [employer] Dimension EXL analyzer using a modified kinetic Melanie technique. Electrolyte Balance 4.0 mEq/L Normal 4.0 - 15 .0 mEq/L AO ADM SS Eosinophil, Absolute 0.4 103/mcL Normal 0.0 - 0 .7 10^3/mcL AO Workflow SS Eosinophils/100 WBC (Bld) 2.9 % Normal 0.0 - 7.0 % AO Workflow SS Erythrocyte distribution width (RBC) [Ratio] 13.0 % Normal 11.5 - 15.5 % AO Workflow SS GFR/1.73 sq M.predicted among blacks MDRD (S/P/Bld) [Vol rate/Area] 78 ml/min/1.73sqm Invalid Interpretation Code AO Chemistry S [...] M.predicted among non-blacks MDRD (S/P/Bld) [Vol rate/Area] 64 ml/min/1.73sqm Invalid Interpretation Code AO Chemistry S [...] than 15 mL/min/1.73 square meters Glucose [Mass/Vol] 100 mg/dL Normal 70 - 105 mg/dL AO ADM SS Hematocrit (Bld) [Volume fraction] 37.9 % Normal 34.0 - 46.0 % AO Workflow SS Hemoglobin (Bld) [Mass/Vol] 12.1 G/dL Normal 12.0 - 16.0 G/dL AO Workflow SS Lymphocytes (Bld) [#/Vol] 2.3 103/mcL Normal 0.9 - 4.3 10^3/mcL AO Workflow SS Lymphocytes/100 WBC (Bld) 15.1 % Low 20.0 - 40.0 % AO Workflow SS MCH (RBC) [Entitic mass] 32.0 pg Normal 27.0 - 33.0 pg AO Workflow SS MCHC 32.0 G/dL Normal 32.0 - 36.0 G/dL AO Workflow SS MCV (RBC) [Entitic vol] 100.1 fL High 80.0 - 99.0 fL AO Workflow SS Monocytes (Bld) [#/Vol] 1.5 103/mcL High 0.1 - 1.4 10^3/mcL AO Workflow SS Monocytes/100 WBC (Bld) 10.0 % Normal 2.0 - 13.0 % AO Workflow SS Natriuretic peptide.B prohormone N-Terminal [Mass/Vol] 93132 pg/mL High 0 - 125 pg/mL AO ADM SS Comment on above: Interpretive Data: N T-proBNP results of less than 300 pg/mL effectively rules out acute congestive heart failure with 99% negative predictive value. Neutrophils (Bld) [#/Vol] 11.0 103/mcL High 2.3 - 8.1 10^3/mcL AO Workflow SS Neutrophils/100 WBC (Bld) 71.5 % Normal 50.0 - 75.0 % AO Workflow SS Platelet mean volume (Bld) [Entitic vol] 8.9 fL Normal 6.6 - 10.5 fL AO Workflow SS Platelets (Bld) [#/Vol] 169 103/mcL Normal 150 - 450 10^3/mcL AO Workflow SS Potassium [Moles/Vol] 4.8 mmol/L Normal 3.5 - 5.1 mmol/L AO ADM SS RBC (Bld) [#/Vol] 3.79 106/mcL Low 4.10 - 5.3 0 10^6/mcL AO Workflow SS Sodium [Moles/Vol] 144 mmol/L Normal 136 - 145 mmol/L AO ADM SS Troponin I.cardiac DL <= 0.01 ng/mL [Mass/Vol] 87 ng/L High 0 - 51 ng/L AO ADM SS Comment on above: Interpretive Data: H igh Sensitive Troponin I Reference Ranges: Female: 0-51 ng/L Male: 0-76 ng/L Testing performed on [employer] using a homogeneous sandwich chemiluminescent immunoassay based on [employer] technology. Urea nitrogen [Mass/Vol] 37 mg/dL High 7 - 18 mg/dL AO ADM SS Urea nitrogen/Creatinine [Mass ratio] 39 ratio High 7 - 27 ratio AO ADM SS WBC (Bld) [#/Vol] 15.4 103/mcL High 4.5 - 10.8 10^3/mcL AO Workflow SS LABORATORYOrdered By: Sim Molina on 02-27-2024 Monocyte distribution width Auto (Bld) [Entitic vol] Not Performed 1 (02/27/24 2:35 AM) Normal 0.00 - 20.00 AO Hematology S Comment on above: Result Comment: MDW testing unable to be performed on [id number] instrumentation. PBNPon 02-27-2024 Natriuretic peptide B (Bld) [Mass/Vol] [address] pg/mL High 0-125 [facility] Comment on above: Result Comment: NT-p roBNP results of less than 300 pg/mL effectively rules out acute congestive heart failure with 99% negative predictive value. Performed By: #### C BC, ANEU, GFR, PBNP, BMP, TROPHMG Fritz MDW, ADIFF #### [address] [place], [place] [address] TROPHSon 02-27-2024 High Sensitivity Troponin I 90 ng/L [facility] [address] Comment on above: Result Comment: High Sensitive Troponin I Reference Ranges: Female: 0-51 ng/L Male: 0-76 ng/L Testing performed on [employer] using a homogeneous sandwich chemiluminescent immunoassay based on [employer] technology. Performed By: #### C BC, ANEU, GFR, PBNP, BMP, TROPHSMG MDW, ADIFF #### [address] [place] [address] High Sensitivity Troponin I 87 ng/L [facility] [address] Comment on above: Result Comment: High Sensitive Troponin I Reference Ranges: Female: 0-51 ng/L Male: 0-76 ng/L Testing performed on Dimension EXL using a homogeneous sandwich chemiluminescent immunoassay based on [employer] technology. Performed By: #### C BC, ANEU, GFR, PBNP, BMP, MG SUAREZ MDW, ADIFF #### [address] [place], [place] [address] XR CHEST 1 VIEWon 02-27-2024 XR CHEST 1 VIEW ORIGINAL EXAMINATION: ONE XRAY VIEW OF THE CHEST02/27/2024 2:53 am COMPARISON: One-view chest radiograph 12/21/2023 HISTORY: ORDERING SYSTEM PROVIDED HISTORY: Reason for Exam: chest pain FINDINGS: Stable cardiomegaly. Pulmonary arteries are enlarged bilaterally. Similar appearing bilateral perihilar airspace opacities and interstitial prominence. No focal consolidation. No pleural effusion or visible pneumothorax. The bony thorax appears intact. IMPRESSION: Cardiomegaly with findings compatible with moderate pulmonary edema. A superimposed infectious or inflammatory process cannot be entirely excluded. Follow-up to resolution is advised. Enlarged pulmonary arteries consistent with pulmonary hypertension. I have personally reviewed the images of this examination, and agree with the resident's findings and interpretation. Interpreted by: Quan Jeong MD Preliminary Report By: Yan Staleyally signed By Quan Jeong MD Dictated Date: 02/27/2024 2:55:52 AM Prelim Date: 02/27/2024 2:59:41 AM Sign Date: 02/27/2024 3:05:24 AM Ordering Provider: JAMILA DARDEN [facility] Basic Metabolic Profile (BMP )on 02-26-2024 BUN/CRE 40.2 RATIO High 10-20 [facility] Comment on above: Performed By: #### L 100.0500, L500.2500, L300.3900 ####[facility] [address] [place], [address] CA,Total 8.8 mg/dL Normal 8.5-10.1 [facility] Comment on above: Performed By: #### L 100.0500, L500.2500, L300.3900 ####[facility] [address] [place], [address] Chloride [Moles/Vol] 104 mmol/L Normal 98-107 [facility] Comment on above: Performed By: #### L 100.0500, L500.2500, L300.3900 ####[facility] [address] [place], [address] CO2 [Moles/Vol] 33.0 mmol/L High 21.0-32.0 [facility] Comment on above: Performed By: #### L 100.0500, L500.2500, L300.3900 ####[facility] [address] [place], [address] Creatinine [Mass/Vol] 0.75 mg/dL Normal 0.55-1.02 [facility] Comment on above: Result Comment: The validity of the calculated GFR GFRAA in patients over70 years has not been determined. Clinical correlation isessential. Performed By: #### L 100.0500, L500.2500, L300.3900 ####[facility] [address] [place], [address] ECRCL 123.70 ml/min Normal [facility] Comment on above: Performed By: #### L 100.0500, L500.2500, L300.3900 ####[facility] [address] [place], [address] EST GFR - AA 110 mL/min Normal >60 [facility] Comment on above: Result Comment: Afri can [place] GFR Calc Performed By: #### L 100.0500, L500.2500, L300.3900 ####[facility] [address] [place], [address] GAP 3 Low 5-15 [facility] Comment on above: Performed By: #### L 100.0500, L500.2500, L300.3900 ####[facility] [address] [place], [address] GFR/1.73 sq M.predicted among non-blacks MDRD (S/P/Bld) [Vol rate/Area] 91 mL/min/{1.73_m2} Normal >60 [facility] Comment on above: Result Comment: Non- GFR Calc Performed By: #### L 100.0500, L500.2500, L300.3900 ####[facility] [address] [place], [address] Glucose [Mass/Vol] 152 mg/dL High 74-106 [facility] Comment on above: Result Comment: Fast ing Glucose result greater than or equal to 126 mg/dLsuggests DIABETES MELLITUS per A.D.A. criteria. Performed By: #### L 100.0500, L500.2500, L300.3900 ####[facility] [address] [place], [address] Potassium [Moles/Vol] 4.2 mmol/L Normal 3.5-5.1 [facility] Comment on above: Performed By: #### L 100.0500, L500.2500, L300.3900 ####[facility] [address] [place], [address] Sodium [Moles/Vol] 140 mmol/L Normal 136-145 [facility] Comment on above: Performed By: #### L 100.0500, L500.2500, L300.3900 ####[facility] [address] [place], [address] Urea nitrogen [Mass/Vol] 30 mg/dL High 7-18 [facility] Comment on above: Performed By: #### L 100.0500, L500.2500, L300.3900 ####[facility] [address] [place], [address] CBC-Complete Blood Cnt No Di ffon 02-26-2024 Erythrocyte distribution width (RBC) [Ratio] 13.1 % Normal 11.6-14.6 [facility] Comment on above: Performed By: #### L 100.0500, L500.2500, L300.3900 ####[facility] [address] [place], [address] Hematocrit (Bld) [Volume fraction] 37.4 % Normal 37-47 [facility] Comment on above: Performed By: #### L 100.0500, L500.2500, L300.3900 ####[facility] [address] [place], [address] Hemoglobin (Bld) [Mass/Vol] 11.0 g/dL Low 12.0-15.0 [facility] Comment on above: Performed By: #### L 100.0500, L500.2500, L300.3900 ####[facility] [address] [place], [address] MCH (RBC) [Entitic mass] 31.3 pg Normal 27.0-32.0 [facility] Comment on above: Performed By: #### L 100.0500, L500.2500, L300.3900 ####[facility] [address] [place], [address] MCHC (RBC) [Mass/Vol] 29.4 g/dL Low 32-36 [facility] Comment on above: Performed By: #### L 100.0500, L500.2500, L300.3900 ####[facility] [address] [place], [address] MCV (RBC) [Entitic vol] 106.3 fL High 81-99 [facility] Comment on above: Performed By: #### L 100.0500, L500.2500, L300.3900 ####[facility] [address] [place], [address] Platelet mean volume (Bld) [Entitic vol] 11.2 fL Normal 6.2-12.0 [facility] Comment on above: Performed By: #### L 100.0500, L500.2500, L300.3900 ####[facility] [address] [place], [address] Platelets (Bld) [#/Vol] 126 10*3/uL Low 150-450 [facility] Comment on above: Performed By: #### L 100.0500, L500.2500, L300.3900 ####[facility] [address] [place], [address] RBC (Bld) [#/Vol] 3.52 10*6/uL Low 4.2-5.4 [facility] Comment on above: Performed By: #### L 100.0500, L500.2500, L300.3900 ####[facility] [address] [place], [address] RDW SD 50.9 fl High 35.1-43.9 [facility] Comment on above: Performed By: #### L 100.0500, L500.2500, L300.3900 ####[facility] [address] [place], [address] WBC (Bld) [#/Vol] 12.7 10*3/uL High 4.4-11.0 [facility] Comment on above: Performed By: #### L 100.0500, L500.2500, L300.3900 ####[facility] [address] [place], [address] CRPon 02-26-2024 C-REACTIVE PROT 65.60 mg/L High 0.0-3.0 [facility] Comment on above: Result Comment: C-Re active Protein (CRP) provides useful information for thediagnosis, therapy and monitoring of inflammatory processesand associated diseases. For the evaluation of Relative Riskfor Cardiovascular Disease, a High Sensitivity CRP (HSCRP)should be ordered. Performed By: #### L 501.6710, L101.9900 ####[facility] [address] [place], [address] Erythrocyte Sed Rateon 02-25 SED RATE 25 mm/hr Normal 0-30 [facility] Comment on above: Performed By: #### L 501.6710, L101.9900 ####[facility] [address] [place], [address] Partial Thromboplast Timeon 02-26-2024 aPTT Coag (Bld) [Time] 28.8 s Normal 24.1-36.2 [facility] Comment on above: Order Comment: REDRA W. PREVIOUS SPECIMEN REJECTED DUE TOSPECIMEN BEING CLOTTED. 02/26/24 0744 Noemi Olivo Performed By: #### L 300.4310, L300.3900 ####[facility] [address] [place], [address] Prothrombin Time w/INRon INR Coag (PPP) [Relative time] 1.2 {INR} Normal [facility] Comment on above: Order Comment: REDRA W. PREVIOUS SPECIMEN REJECTED DUE TOSPECIMEN BEING CLOTTED. 02/26/2444 Noemi Hooverr. Performed By: #### L 300.4310, L300.3900 ####[facility] [address] [place], [address] PT Coag (PPP) [Time] 15.2 s High 11.7-14.9 [facility] Comment on above: Order Comment: REDRA W. PREVIOUS SPECIMEN REJECTED DUE TOSPECIMEN BEING CLOTTED. 02/26/2444 Noemi Hooverr. Performed By: #### L 300.4310, L300.3900 ####[facility] [address] [place], [address] INR Normal [facility] Comment on above: Result Comment: This specimen has been REJECTED due to Laboratory criteria:Clotted.PHLEB STAFF has been notified of need of recollection.02/26/2443 Noemi Hooverr Performed By: #### L 100.0500, L500.2500, L300.3900 ####[facility] [address] [place], [address] PROTIME Normal 11.7-14.9 [facility] Comment on above: Result Comment: This specimen has been REJECTED due to Laboratory criteria:Clotted.PHLEB STAFF has been notified of need of recollection.02/26/2443 Noemi Hooverr Performed By: #### L 100.0500, L500.2500, L300.3900 ####[facility] [address] [place], [address] Shoulder min 2 Viewson 02-25 Shoulder min 2 Views Normal [facility] 12 Lead EKGon 02-25-2024 12 Lead EKG Normal [facility] BNP,B-Type NATRIURETIC PEPTI Christa 02-25-2024 Natriuretic peptide B (Bld) [Mass/Vol] 1191.6 pg/mL High 0-100 [facility] Comment on above: Performed By: #### L 503.6054 ####[facility] [address] [place], [address] Basic Metabolic Profile (BMP )on 02-25-2024 BUN/CRE 38.2 RATIO High 10-20 [facility] Comment on above: Performed By: #### L 500.2500, L100.0100 ####[facility] [address] [place], [address] CA,Total 8.9 mg/dL Normal 8.5-10.1 [facility] Comment on above: Performed By: #### L 500.2500, L100.0100 ####[facility] [address] [place], [address] Chloride [Moles/Vol] 104 mmol/L Normal 98-107 [facility] Comment on above: Performed By: #### L 500.2500, L100.0100 ####[facility] [address] [place], [address] CO2 [Moles/Vol] 35.0 mmol/L High 21.0-32.0 [facility] Comment on above: Performed By: #### L 500.2500, L100.0100 ####[facility] [address] [place], [address] Creatinine [Mass/Vol] 1.00 mg/dL Normal 0.55-1.02 [facility] Comment on above: Result Comment: The validity of the calculated GFR GFRAA in patients over70 years has not been determined. Clinical correlation isessential. Performed By: #### L 500.2500, L100.0100 ####[facility] [address] [place], [address] ECRCL 92.78 ml/min Normal [facility] Comment on above: Performed By: #### L 500.2500, L100.0100 ####[facility] [address] [place], [address] EST GFR - AA 79 mL/min Normal >60 [facility] Comment on above: Result Comment: Afri can [place] GFR Calc Performed By: #### L 500.2500, L100.0100 ####[facility] [address] [place], [address] GAP 1 Low 5-15 [facility] Comment on above: Performed By: #### L 500.2500, L100.0100 ####[facility] [address] [place], [address] GFR/1.73 sq M.predicted among non-blacks MDRD (S/P/Bld) [Vol rate/Area] 65 mL/min/{1.73_m2} Normal >60 [facility] Comment on above: Result Comment: Non- GFR Calc Performed By: #### L 500.2500, L100.0100 ####[facility] [address] [place], [address] Glucose [Mass/Vol] 100 mg/dL Normal 74-106 [facility] Comment on above: Result Comment: Fast ing Glucose result from 100 to 125 mg/dLsuggests IMPAIRED HOMEOSTASIS per A.D.A. criteria. Performed By: #### L 500.2500, L100.0100 ####[facility] [address] [place], [address] Potassium [Moles/Vol] 5.0 mmol/L Normal 3.5-5.1 [facility] Comment on above: Result Comment: Mode rate Hemolysis, Result may be falsely increased. Performed By: #### L 500.2500, L100.0100 ####[facility] [address] [place], [address] Sodium [Moles/Vol] 140 mmol/L Normal 136-145 [facility] Comment on above: Performed By: #### L 500.2500, L100.0100 ####[facility] [address] [place], [address] Urea nitrogen [Mass/Vol] 38 mg/dL High 7-18 [facility] Comment on above: Performed By: #### L 500.2500, L100.0100 ####[facility] [address] [place], [address] CBC W/Diff, Automatedon 02-07 Absolute Lymph 2.73 X10 3/uL Normal 0.83-4.51 [facility] Comment on above: Performed By: #### L 500.2500, L100.0100 ####[facility] [address] [place], [address] Absolute Neut 9.8 X10 3/uL High 2.0-7.7 [facility] Comment on above: Performed By: #### L 500.2500, L100.0100 ####[facility] [address] [place], [address] Basophils/100 WBC (Bld) 0.5 % Normal 0-1 [facility] Comment on above: Performed By: #### L 500.2500, L100.0100 ####[facility] [address] [place], [address] Eosinophils/100 WBC (Bld) 3.0 % Normal 0-5 [facility] Comment on above: Performed By: #### L 500.2500, L100.0100 ####[facility] [address] [place], [address] Erythrocyte distribution width (RBC) [Ratio] 13.2 % Normal 11.6-14.6 [facility] Comment on above: Performed By: #### L 500.2500, L100.0100 ####[facility] [address] [place], [address] Hematocrit (Bld) [Volume fraction] 36.7 % Low 37-47 [facility] Comment on above: Performed By: #### L 500.2500, L100.0100 ####[facility] [address] [place], [address] Hemoglobin (Bld) [Mass/Vol] 11.2 g/dL Low 12.0-15.0 [facility] Comment on above: Performed By: #### L 500.2500, L100.0100 ####[facility] [address] [place], [address] IG% 0.800 Normal 0.0-0.9 [facility] Comment on above: Result Comment: IG% - Immature Granulocytes (promyelocytes, myelocytes andmetamyelocytes) > 1% indicates that a LEFT SHIFT is Present. Performed By: #### L 500.2500, L100.0100 ####[facility] [address] [place], [address] Lymphocytes/100 WBC (Bld) 18.9 % Low 19-41 [facility] Comment on above: Performed By: #### L 500.2500, L100.0100 ####[facility] [address] [place], [address] MCH (RBC) [Entitic mass] 32.2 pg High 27.0-32.0 [facility] Comment on above: Performed By: #### L 500.2500, L100.0100 ####[facility] [address] [place], [address] MCHC (RBC) [Mass/Vol] 30.5 g/dL Low 32-36 [facility] Comment on above: Performed By: #### L 500.2500, L100.0100 ####[facility] [address] [place], [address] MCV (RBC) [Entitic vol] 105.5 fL High 81-99 [facility] Comment on above: Performed By: #### L 500.2500, L100.0100 ####[facility] [address] [place], [address] Monocytes/100 WBC (Bld) 9.0 % Normal 0-10 [facility] Comment on above: Performed By: #### L 500.2500, L100.0100 ####[facility] [address] [place], [address] Neutrophils/100 WBC (Bld) 67.8 % Normal 47-70 [facility] Comment on above: Performed By: #### L 500.2500, L100.0100 ####[facility] [address] [place], [address] Nucleated RBC (Bld) [#/Vol] 0.5 10*3/uL Normal 0-5 [facility] Comment on above: Performed By: #### L 500.2500, L100.0100 ####[facility] [address] [place], [address] Platelet mean volume (Bld) [Entitic vol] 11.4 fL Normal 6.2-12.0 [facility] Comment on above: Performed By: #### L 500.2500, L100.0100 ####[facility] [address] [place], [address] Platelets (Bld) [#/Vol] 143 10*3/uL Low 150-450 [facility] Comment on above: Performed By: #### L 500.2500, L100.0100 ####[facility] [address] [place], [address] RBC (Bld) [#/Vol] 3.48 10*6/uL Low 4.2-5.4 [facility] Comment on above: Performed By: #### L 500.2500, L100.0100 ####[facility] [address] [place], [address] RDW SD 50.6 fl High 35.1-43.9 [facility] Comment on above: Performed By: #### L 500.2500, L100.0100 ####[facility] [address] [place], [address] WBC (Bld) [#/Vol] 14.4 10*3/uL High 4.4-11.0 [facility] Comment on above: Performed By: #### L 500.2500, L100.0100 ####[facility] [address] [place], [address] Cardiac Cath Diagnosticon Cardiac Cath Diagnostic Normal [facility] Consultation - Cardiologyon 02-25-2024 Consultation - Cardiology Normal [facility] Partial Thromboplast Timeon 02-25-2024 aPTT Coag (Bld) [Time] 26.2 s Normal 24.1-36.2 [facility] Comment on above: Performed By: #### L 300.4310 ####[facility] [address] [place], [address] ,Urineon 02-25-2024 Beta HCG ( test) Ql (U) Negative Normal [facility] Comment on above: Result Comment: Very dilute urine specimens, as indicated by a low specificgravity, may not contain merchandiser retail representative levels of hCG.If is still suspected, a first morning urinespecimen should be collected 48 hours later and tested. Performed By: #### L 400.8100 ####[facility] [address] [place], [address] Urine Cultureon 02-25-2024 URC Culture exhibits no growth. Normal [facility] Comment on above: Performed By: #### M 100.2200 ####[facility] [address] [place], [address] 12 Lead EKGon 02-24-2024 12 Lead EKG Normal [facility] 12 Lead EKG Normal [facility] Basic Metabolic Profile (BMP )on 02-24-2024 BUN/CRE 25.0 RATIO High 10-20 [facility] Comment on above: Performed By: #### L 500.2500, L100.0100, L300.8000 ####[facility] [address] [place], [address] CA,Total 9.0 mg/dL Normal 8.5-10.1 [facility] Comment on above: Performed By: #### L 500.2500, L100.0100, L300.8000 ####[facility] [address] [place], [address] Chloride [Moles/Vol] 104 mmol/L Normal 98-107 [facility] Comment on above: Performed By: #### L 500.2500, L100.0100, L300.8000 ####[facility] [address] [place], [address] CO2 [Moles/Vol] 29.0 mmol/L Normal 21.0-32.0 [facility] Comment on above: Performed By: #### L 500.2500, L100.0100, L300.8000 ####[facility] [address] [place], [address] Creatinine [Mass/Vol] 1.56 mg/dL High 0.55-1.02 [facility] Comment on above: Result Comment: The validity of the calculated GFR GFRAA in patients over70 years has not been determined. Clinical correlation isessential. Performed By: #### L 500.2500, L100.0100, L300.8000 ####[facility] [address] [place], [address] EST GFR - AA 47 mL/min Low >60 [facility] Comment on above: Result Comment: Afri can [place] GFR Calc Performed By: #### L 500.2500, L100.0100, L300.8000 ####[facility] [address] [place], [address] GAP 5 Normal 5-15 [facility] Comment on above: Performed By: #### L 500.2500, L100.0100, L300.8000 ####[facility] [address] [place], [address] GFR/1.73 sq M.predicted among non-blacks MDRD (S/P/Bld) [Vol rate/Area] 39 mL/min/{1.73_m2} Low >60 [facility] Comment on above: Result Comment: Non- GFR Calc Performed By: #### L 500.2500, L100.0100, L300.8000 ####[facility] [address] [place], [address] Glucose [Mass/Vol] 127 mg/dL High 74-106 [facility] Comment on above: Result Comment: Fast ing Glucose result greater than or equal to 126 mg/dLsuggests DIABETES MELLITUS per A.D.A. criteria. Performed By: #### L 500.2500, L100.0100, L300.8000 ####[facility] [address] [place], [address] Potassium [Moles/Vol] 4.7 mmol/L Normal 3.5-5.1 [facility] Comment on above: Result Comment: Slig ht Hemolysis, Result may be falsely increased. Performed By: #### L 500.2500, L100.0100, L300.8000 ####[facility] [address] [place], [address] Sodium [Moles/Vol] 138 mmol/L Normal 136-145 [facility] Comment on above: Performed By: #### L 500.2500, L100.0100, L300.8000 ####[facility] [address] [place], [address] Urea nitrogen [Mass/Vol] 39 mg/dL High 7-18 [facility] Comment on above: Performed By: #### L 500.2500, L100.0100, L300.8000 ####[facility] [address] [place], [address] CBC W/Diff, Automatedon 12- Absolute Lymph 2.55 X10 3/uL Normal 0.83-4.51 [facility] Comment on above: Performed By: #### L 500.2500, L100.0100, L300.8000 ####[facility] [address] [place], [address] Absolute Neut 11.7 X10 3/uL High 2.0-7.7 [facility] Comment on above: Performed By: #### L 500.2500, L100.0100, L300.8000 ####[facility] [address] [place], [address] Basophils/100 WBC (Bld) 0.6 % Normal 0-1 [facility] Comment on above: Performed By: #### L 500.2500, L100.0100, L300.8000 ####[facility] [address] [place], [address] Eosinophils/100 WBC (Bld) 1.5 % Normal 0-5 [facility] Comment on above: Performed By: #### L 500.2500, L100.0100, L300.8000 ####[facility] [address] [place], [address] Erythrocyte distribution width (RBC) [Ratio] 13.1 % Normal 11.6-14.6 [facility] Comment on above: Performed By: #### L 500.2500, L100.0100, L300.8000 ####[facility] [address] [place], [address] Hematocrit (Bld) [Volume fraction] 37.8 % Normal 37-47 [facility] Comment on above: Performed By: #### L 500.2500, L100.0100, L300.8000 ####[facility] [address] [place], [address] Hemoglobin (Bld) [Mass/Vol] 11.6 g/dL Low 12.0-15.0 [facility] Comment on above: Performed By: #### L 500.2500, L100.0100, L300.8000 ####[facility] [address] [place], [address] IG% 0.900 Normal 0.0-0.9 [facility] Comment on above: Result Comment: IG% - Immature Granulocytes (promyelocytes, myelocytes andmetamyelocytes) > 1% indicates that a LEFT SHIFT is Present. Performed By: #### L 500.2500, L100.0100, L300.8000 ####[facility] [address] [place], [address] Lymphocytes/100 WBC (Bld) 15.7 % Low 19-41 [facility] Comment on above: Performed By: #### L 500.2500, L100.0100, L300.8000 ####[facility] [address] [place], [address] MCH (RBC) [Entitic mass] 32.1 pg High 27.0-32.0 [facility] Comment on above: Performed By: #### L 500.2500, L100.0100, L300.8000 ####[facility] [address] [place], [address] MCHC (RBC) [Mass/Vol] 30.7 g/dL Low 32-36 [facility] Comment on above: Performed By: #### L 500.2500, L100.0100, L300.8000 ####[facility] [address] [place], [address] MCV (RBC) [Entitic vol] 104.7 fL High 81-99 [facility] Comment on above: Performed By: #### L 500.2500, L100.0100, L300.8000 ####[facility] [address] [place], [address] Monocytes/100 WBC (Bld) 8.9 % Normal 0-10 [facility] Comment on above: Performed By: #### L 500.2500, L100.0100, L300.8000 ####[facility] [address] [place], [address] Neutrophils/100 WBC (Bld) 72.4 % High 47-70 [facility] Comment on above: Performed By: #### L 500.2500, L100.0100, L300.8000 ####[facility] [address] [place], [address] Nucleated RBC (Bld) [#/Vol] 0.4 10*3/uL Normal 0-5 [facility] Comment on above: Performed By: #### L 500.2500, L100.0100, L300.8000 ####[facility] [address] [place], [address] Platelet mean volume (Bld) [Entitic vol] 10.7 fL Normal 6.2-12.0 [facility] Comment on above: Performed By: #### L 500.2500, L100.0100, L300.8000 ####[facility] [address] [place], [address] Platelets (Bld) [#/Vol] 181 10*3/uL Normal 150-450 [facility] Comment on above: Performed By: #### L 500.2500, L100.0100, L300.8000 ####[facility] [address] [place], [address] RBC (Bld) [#/Vol] 3.61 10*6/uL Low 4.2-5.4 [facility] Comment on above: Performed By: #### L 500.2500, L100.0100, L300.8000 ####[facility] [address] [place], [address] RDW SD 49.3 fl High 35.1-43.9 [facility] Comment on above: Performed By: #### L 500.2500, L100.0100, L300.8000 ####[facility] [address] [place], [address] WBC (Bld) [#/Vol] 16.2 10*3/uL High 4.4-11.0 [facility] Comment on above: Performed By: #### L 500.2500, L100.0100, L300.8000 ####[facility] [address] [place], [address] CNPNon 02-24-2024 CNPN Telephone (INTMWS) SIA ABDUL ([id number]) 1980 F Date Time Provider Department 02/24/24 MARILEE THAKUR INTWS During your visit today, we recorded the following information about you: Lillie Marshall RN 02/24/2024 8:19 AM Signed Clarence from [facility] calls and reports that he is visiting patient currently. Patient is feeling more fatigued than usual and she is having significant pain in her right shoulder. Patient is not dizzy nor does she have chest pressure. Patient's vitals are ok. Patient took naproxen which did not help with the pain. Patient thinks that she needs to go to ER. Advised Clarence that with fatigue and significant pain in her right should she should go to ER to be evaluated. Clarence agrees and voices understanding. Patient's supervisor [employer] is going to take patient to ER. RODRÍGUEZ Carnes Rachel L, MA 02/24/2024 9:[address] Thakur informed verbally by this MA. Aaliyah Gonzalez MA Allergies As of Date: 02/24/2024 Noted Allergy Reaction BEE STING 02/28/2023 10 - Anaphylaxis DILANTIN (PHENYTOIN SODIUM EXTEND*01/28/2006 Date Reviewed: 02/16/2024 Reviewed by: Lacie Reyes LPN - Fully Assessed Reason for Visit: Patient Update [1234] Prescriptions as of 02/24/2024 - midodrine (PROAMITINE) 5 mg tablet Take 5 mg by mouth three times a day. - mometasone-formoterol (DULERA) 100-5 mcg/actuation inhaler Inhale 2 Puffs as instructed two times a day. - fluticasone (FLONASE) 50 mcg/actuation nasal spray INSTILL 2 SPRAYS IN EACH NOSTRIL DAILY - diphenoxylate-atropine (LOMOTIL) 2.5-0.025 mg per tablet Take 1 tablet by mouth four times a day as needed. - ondansetron (ZOFRAN) 4 mg tablet Take by mouth every 8 hours as needed for nausea/vomiting. - aspirin 81 mg chewable tablet Take 81 mg by mouth once daily. - metOLazone (ZAROXOLYN) 2.5 mg tablet Take 1 tablet by mouth once daily. - carvedilol (COREG) 3.125 mg tablet Take 1 tablet by mouth two times a day. - lisinopril (ZESTRIL) 5 mg tablet Take 1 tablet by mouth once daily. - potassium chloride 20 mEq TbER Take 1 tablet by mouth once daily. - ammonium lactate (LAC-HYDRIN) 12 % cream APPLY TOPICALLY TO AFFECTED AREA(S) ON LEGS AT BEDTIME - Leg Brace (TRUE CMFT KNEE COMPRESSION) misc 1 Each once daily. - multivitamin-ferrous fumarate-folic acid (CERTAVITE-ANTIOXIDANT ) Take 1 tablet by mouth once daily. 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 Normal [facility] CNPN Telephone (INTMWS) SIA ABDUL ([id number]) 1980 F Date Time Provider Department 02/24/24 MARILEE THAKUR INTMWS During your visit today, we recorded the following information about you: Pepper Walsh RN 02/24/2024 3:36 PM Signed Shobha, patient's caregiver from [facility] is calling to update PCP that patient is being admitted to [facility] for further evaluation of irregular pulse and low oxygen level. Her afternoon appt with Dr. Thakur had to be canceled today because of this. Pepper Walsh RN Allergies As of Date: 02/24/2024 Noted Allergy Reaction BEE STING 02/28/2023 10 - Anaphylaxis DILANTIN (PHENYTOIN SODIUM EXTEND*01/28/2006 Date Reviewed: 02/16/2024 Reviewed by: Lacie Reyes LPN - Fully Assessed Reason for Visit: Patient Update [1234] Prescriptions as of 05/14/2024 - sertraline (ZOLOFT) 25 mg tablet Take 1 tablet by mouth once daily. - torsemide (DEMADEX) 20 mg tablet Take an extra 20 a day mgs In addition to current dose of 40 mgs 2 times on days you have more than 5 pounds of water weight gain - fluticasone-vilanterol (BREO ELLIPTA) 100-25 mcg/dose inhaler Inhale 1 Inhalation as instructed once daily. - IRAIDA 0.35 mg tablet Take 1 tablet by mouth once daily. - EPINEPHrine (EPIPEN) 0.3 mg/0.3 mL auto-injector INJECT 1 PEN INTO LATERAL THIGH DIRECTED FOR ALLERGIC REACTIONS TO BEE/WASP STINGS MAY REPEAT IN 5-15 MINUTES IF SYMPTOMS PERSIST * *STAFF REORDER, 4 DAYS IN ADVANCE* - torsemide (DEMADEX) 20 mg tablet Take 2 tablets by mouth two times a day. - MEDICAL SUPPLY Lymphedema compression pump to both legs 1 hour daily. 60 mm Hg. New machine. - mometasone-formoterol (DULERA) 100-5 mcg/actuation inhaler Inhale 2 Puffs as instructed two times a day. - fluticasone (FLONASE) 50 mcg/actuation nasal spray INSTILL 2 SPRAYS IN EACH NOSTRIL DAILY - diphenoxylate-atropine (LOMOTIL) 2.5-0.025 mg per tablet Take 1 tablet by mouth four times a day as needed. - ondansetron (ZOFRAN) 4 mg tablet Take by mouth every 8 hours as needed for nausea/vomiting. - aspirin 81 mg chewable tablet Take 81 mg by mouth once daily. - carvedilol (COREG) 3.125 mg tablet Take 1 tablet by mouth two times a day. - ammonium lactate (LAC-HYDRIN) 12 % cream APPLY TOPICALLY TO AFFECTED AREA(S) ON LEGS AT BEDTIME - multivitamin-ferrous fumarate-folic acid (CERTAVITE-ANTIOXIDANT ) Take 1 tablet by mouth once daily. - Gpntr-5-ZRG-EPA-Fish Oil 1,000 mg (120 mg-180 mg) cap Take 1 capsule by mouth once daily. - levothyroxine (SYNTHROID) 100 mcg tablet take one tablet by mouth daily one hour before breakfast - nystatin (NYAMYC) powder APPLY TOPICALLY TWICE [...] as needed for wheezing/shortness of breath. - acetaminophen (TYLENOL EXTRA STRENGTH) 500 mg tablet Take 2 tablets by mouth every 8 hours as needed for pain (For knee pain). - Gauze Bandage 2 X 2 bndg Apply 1 application to affected area twice daily. - cetirizine (ZYRTEC) 10 mg tablet Take [...] 4pm Dx:Q87.1 Problem List As Of Date 02/24/2024 Noted Resolved Other malaise and fatigue [R53.81, [...] [G47.33] 12/14/2014 BMI 40.0-44.9, adult (HCC) [Z68.41] (more content not included)... Normal [facility] CTA Chest W/WO Contraston CTA Chest W/WO Contrast Normal [facility] Chest 1 View (Portable)on Chest 1 View (Portable) Normal [facility] D-Dimer Quantitative (DVT/PE )on 02-24-2024 D-DIMER QUANT 3.38 FEU/ug/m Invalid Interpretation Code 0.27-0.49 [facility] Comment on above: Result Comment: D-Di alexandrea ELEVATED (>0.49): Additional studies and clinicalassessments are indicated to conclude diagnosis of:Deep Vein Thrombosis (DVT) or Pulmonary Embolism (PE)CRITICAL VALUE CALLED TO MWIUKW97/17/24 1109 Renu Villatoro.RESULTS READ BACK BY SAME. Performed By: #### L 500.2500, L100.0100, L300.8000 ####[facility] [address] [place], [place], [address] Echo, Limited Studyon 2023 Echo, Limited Study Normal [facility] Emergency Department Summary on 02-24-2024 Emergency Department Summary Normal [facility] H AND P Exam - Hospitaliston 02-24-2024 H&P Exam - Hospitalist Normal [facility] Kidney and Bladderon 024 Kidney and Bladder Normal [facility] L501.4020on 02-24-2024 TROPONIN-I HS 179 pg/mL Invalid Interpretation Code 3.0-54.0 [facility] Comment on above: Order Comment: Comme nts: SPECIMEN #3'TROP' Serial specimen #1, #2 or #3: 3 Result Comment: Crit ical Result(s) Called at: 21:35:19 02/24/2024 by: TORRIE FOSTER. Results read back by same. Please Note: New Test Units and Gender Specific Reference Ranges. For more information see Policy Stat Procedure [facility] High Sensitivity Troponin (TNIH) and attachments. Performed By: #### L 501.4020 ####[facility] [address] [place], [place], [address] TROPONIN-I HS 227 pg/mL Invalid Interpretation Code 3.0-54.0 [facility] Comment on above: Order Comment: Comme nts: SPECIMEN #2'TROP' Serial specimen #1, #2 or #3: 2 Result Comment: Crit ical Result(s) Called at: 18:22:28 02/24/2024 by: TORRIE TO DRU KAPOOR. Results read back by same. Please Note: New Test Units and Gender Specific Reference Ranges. For more information see Policy Stat Procedure [facility] High Sensitivity Troponin (TNIH) and attachments. Performed By: #### L 501.4020 ####[facility] [address] [place], [address] TROPONIN-I HS 411 pg/mL Invalid Interpretation Code 3.0-54.0 [facility] Comment on above: Order Comment: 'TROP ' Serial specimen #1, #2 or #3: 1 Result Comment: Crit ical Result(s) Called at: 15:41:58 02/24/2024 by: TORRIE BECK. Results read back by same. Please Note: New Test Units and Gender Specific Reference Ranges. For more information see Policy Stat Procedure [facility] High Sensitivity Troponin (TNIH) and attachments. Performed By: #### L 503.6005, L501.4020 ####[facility] [address] [place], [address] Lactic Acidon 02-24-2024 Lactate [Moles/Vol] 1.0 mmol/L Normal 0.4-1.9 [facility] Comment on above: Order Comment: Y Performed By: #### L 503.6005, L501.4020 ####[facility] [address] [place], [address] Partial Thromboplast Timeon 02-24-2024 aPTT Coag (Bld) [Time] 26.8 s Normal 24.1-36.2 [facility] Comment on above: Performed By: #### L 300.4310, L300.3900 ####[facility] [address] [place], [address] Prothrombin Time w/INRon INR Coag (PPP) [Relative time] 1.2 {INR} Normal [facility] Comment on above: Performed By: #### L 300.4310, L300.3900 ####[facility] [address] [place], [address] PT Coag (PPP) [Time] 14.8 s Normal 11.7-14.9 [facility] Comment on above: Performed By: #### L 300.4310, L300.3900 ####[facility] [address] [place], [address] Shoulder min 2 Viewson 02-23 Shoulder min 2 Views Normal [facility] Urinalysis, Completeon 02-23 AMORPHOUS 2+ Normal [facility] Comment on above: Order Comment: RASHID TER SPECIMEN Performed By: #### L 400.0001 ####[facility] [address] [place], [address] BACTERIA 3+ /hpf Normal None Seen [facility] Comment on above: Order Comment: RASHID TER SPECIMEN Performed By: #### L 400.0001 ####[facility] [address] [place], [address] EPI,SQUAMOUS 0-5 SEEN Normal 5-10 [facility] Comment on above: Order Comment: RASHID TER SPECIMEN Performed By: #### L 400.0001 ####[facility] [address] [place], [address] Mucus Ql (Urine sed) 1+ /hpf Normal [facility] Comment on above: Order Comment: RASHID TER SPECIMEN Performed By: #### L 400.0001 ####[facility] [address] [place], [address] CAST,HYALINE 10-25 SEEN Normal 0-5 [facility] Comment on above: Order Comment: RASHID TER SPECIMEN Performed By: #### L 400.0001 ####[facility] [address] [place], [address] WBC 0-5 SEEN Normal 0-5 [facility] Comment on above: Order Comment: RASHID TER SPECIMEN Performed By: #### L 400.0001 ####[facility] [address] [place], [address] RBC 0 SEEN Normal 0-5 [facility] Comment on above: Order Comment: RASHID TER SPECIMEN Performed By: #### L 400.0001 ####[facility] [address] [place], [address] CNPNon 02-23-2024 [facility] Telephone (INTMWS) SIA ABDUL ([id number]) 1980 F Date Time Provider Department 02/23/24 MARILEE THAKUR INTWS During your visit today, we recorded the following information about you: Pamela Singh LPN 02/23/2024 10:14 AM Signed Leia with [facility], PT calling. Pt out of the hospital last week and is in need of PT in home. Did re-evaluation and asking for verbal orders to continue PT in home. DX acute, chronic systolic heart failure and kidney injury. Please advise Leia with a verbal orders. JORDAN Boston Joy, APRN.MANAGER HOTEL 02/23/2024 11:37 AM Signed Ok with therapy order Thank you Mika Kaplan APRN.María Mchugh MA 02/23/2024 2:30 PM Signed Leia notified. Allergies As of Date: 02/23/2024 Noted Allergy Reaction BEE STING 02/28/2023 10 - Anaphylaxis DILANTIN (PHENYTOIN SODIUM EXTEND*01/28/2006 Date Reviewed: 02/16/2024 Reviewed by: Lacie Reyes LPN - Fully Assessed Reason for Visit: [facility], verbal order [Other] Prescriptions as of 02/23/2024 - midodrine (PROAMITINE) 5 mg tablet Take 5 mg by mouth three times a day. - mometasone-formoterol (DULERA) 100-5 mcg/actuation inhaler Inhale 2 Puffs as instructed two times a day. - fluticasone (FLONASE) 50 mcg/actuation nasal spray INSTILL 2 SPRAYS IN EACH NOSTRIL DAILY - diphenoxylate-atropine (LOMOTIL) 2.5-0.025 mg per tablet Take 1 tablet by mouth four times a day as needed. - ondansetron (ZOFRAN) 4 mg tablet Take by mouth every 8 hours as needed for nausea/vomiting. - aspirin 81 mg chewable tablet Take 81 mg by mouth once daily. - metOLazone (ZAROXOLYN) 2.5 mg tablet Take 1 tablet by mouth once daily. - carvedilol (COREG) 3.125 mg tablet Take 1 tablet by mouth two times a day. - lisinopril (ZESTRIL) 5 mg tablet Take 1 tablet by mouth once daily. - potassium chloride 20 mEq TbER Take 1 tablet by mouth once daily. - ammonium lactate (LAC-HYDRIN) 12 % cream APPLY TOPICALLY TO AFFECTED AREA(S) ON LEGS AT BEDTIME - Leg Brace (TRUE CMFT KNEE COMPRESSION) misc 1 Each once daily. - multivitamin-ferrous fumarate-folic acid (CERTAVITE-ANTIOXIDANT ) Take 1 tablet by mouth once daily. - Ekvzf-1-BDQ-EPA-Fish Oil 1,000 mg (120 mg-180 mg) cap [...] mouth daily one hour before breakfast - nystatin (NYAMYC) powder APPLY TOPICALLY TWICE [...] 4pm Dx:Q87.1 Problem List As Of Date 02/23/2024 Noted Resolved Other malaise and fatigue [R53.81, [...] knee, leg (except thigh), and ank*12/04/2009 12/13/2013 (more content not included)... Normal [facility] Basic Metabolic Profile (BMP )on 02-20-2024 BUN Normal -18 [facility] Comment on above: Result Comment: Canc elled via OM: Order cancelled - Patient discharged Performed By: #### L 500.2500 ####[facility] [address] [facility] [address] BUN/CRE Normal 10-20 [facility] Comment on above: Result Comment: Canc elled via OM: Order cancelled - Patient discharged Performed By: #### L 500.2500 ####[facility] [address] [place], [address] CA,Total Normal 8.5-10.1 [facility] Comment on above: Result Comment: Canc elled via OM: Order cancelled - Patient discharged Performed By: #### L 500.2500 ####[facility] [address] [place], [address] CL Normal 98-107 [facility] Comment on above: Result Comment: Canc elled via OM: Order cancelled - Patient discharged Performed By: #### L 500.2500 ####[facility] [address] [facility] [address] CO2 Normal 21.0-32.0 [facility] Comment on above: Result Comment: Canc elled via OM: Order cancelled - Patient discharged Performed By: #### L 500.2500 ####[facility] [address] [place], [address] CREAT,SERUM Normal 0.55-1.02 [facility] Comment on above: Result Comment: Canc elled via OM: Order cancelled - Patient discharged Performed By: #### L 500.2500 ####[facility] [address] [place], [address] EST GFR Normal >60 [facility] Comment on above: Result Comment: Canc elled via OM: Order cancelled - Patient discharged Performed By: #### L 500.2500 ####[facility] [address] [place], [address] EST GFR - AA Normal >60 [facility] Comment on above: Result Comment: Canc elled via OM: Order cancelled - Patient discharged Performed By: #### L 500.2500 ####[facility] [address] [place], [address] GAP Normal 5-15 [facility] Comment on above: Result Comment: Canc elled via OM: Order cancelled - Patient discharged Performed By: #### L 500.2500 ####[facility] [address] [place], [address] GLU Normal 74-106 [facility] Comment on above: Result Comment: Canc elled via OM: Order cancelled - Patient discharged Performed By: #### L 500.2500 ####[facility] [address] [place], [address] Potassium Normal 3.5-5.1 [facility] Comment on above: Result Comment: Canc elled via OM: Order cancelled - Patient discharged Performed By: #### L 500.2500 ####[facility] [address] [place], [address] Basic Metabolic Profile (BMP) Normal 136-145 [facility] Comment on above: Result Comment: Canc elled via OM: Order cancelled - Patient discharged Performed By: #### L 500.2500 ####[facility] [address] [place], [address] Basic Metabolic Profile (BMP )on 02-19-2024 BUN/CRE 88.1 RATIO High 10-20 [facility] Comment on above: Performed By: #### L 500.2500 ####[facility] [address] [place], [address] CA,Total 9.5 mg/dL Normal 8.5-10.1 [facility] Comment on above: Performed By: #### L 500.2500 ####[facility] [address] [place], [address] Chloride [Moles/Vol] 98 mmol/L Normal 98-107 [facility] Comment on above: Performed By: #### L 500.2500 ####[facility] [address] [place], [address] CO2 [Moles/Vol] 35.0 mmol/L High 21.0-32.0 [facility] Comment on above: Performed By: #### L 500.2500 ####[facility] [address] [place], [address] Creatinine [Mass/Vol] 1.35 mg/dL High 0.55-1.02 [facility] Comment on above: Result Comment: The validity of the calculated GFR GFRAA in patients over70 years has not been determined. Clinical correlation isessential. Performed By: #### L 500.2500 ####[facility] [address] [place], [address] ECRCL 69.14 ml/min Normal [facility] Comment on above: Performed By: #### L 500.2500 ####[facility] [address] [place], [address] EST GFR - AA 55 mL/min Low >60 [facility] Comment on above: Result Comment: Afri can [place] GFR Calc Performed By: #### L 500.2500 ####[facility] [address] [place], [address] GAP 5 Normal 5-15 [facility] Comment on above: Performed By: #### L 500.2500 ####[facility] [address] [place], [address] GFR/1.73 sq M.predicted among non-blacks MDRD (S/P/Bld) [Vol rate/Area] 46 mL/min/{1.73_m2} Low >60 [facility] Comment on above: Result Comment: Non- GFR Calc Performed By: #### L 500.2500 ####[facility] [address] [place], [address] Glucose [Mass/Vol] 127 mg/dL High 74-106 [facility] Comment on above: Result Comment: Fast ing Glucose result greater than or equal to 126 mg/dLsuggests DIABETES MELLITUS per A.D.A. criteria. Performed By: #### L 500.2500 ####[facility] [address] [place], [address] Potassium [Moles/Vol] 4.1 mmol/L Normal 3.5-5.1 [facility] Comment on above: Performed By: #### L 500.2500 ####[facility] [address] [place], [address] Sodium [Moles/Vol] 138 mmol/L Normal 136-145 [facility] Comment on above: Performed By: #### L 500.2500 ####[facility] [address] [place], [address] Urea nitrogen [Mass/Vol] 119 mg/dL Invalid Interpretation Code 7-18 [facility] Comment on above: Result Comment: Crit ical Result(s) Called at: 11:15:04 02/19/2024 by: Jean Marks. Results read back by same. Performed By: #### L 500.2500 ####[facility] [address] [place], [address] Basic Metabolic Profile (BMP )on 02-18-2024 BUN/CRE 84.7 RATIO High 10-20 [facility] Comment on above: Performed By: #### L 100.0500, L500.2500 ####[facility] [address] [place], [address] CA,Total 8.3 mg/dL Low 8.5-10.1 [facility] Comment on above: Performed By: #### L 100.0500, L500.2500 ####[facility] [address] [place], [address] Chloride [Moles/Vol] 99 mmol/L Normal 98-107 [facility] Comment on above: Performed By: #### L 100.0500, L500.2500 ####[facility] [address] [place], [address] CO2 [Moles/Vol] 35.0 mmol/L High 21.0-32.0 [facility] Comment on above: Performed By: #### L 100.0500, L500.2500 ####[facility] [address] [place], [address] Creatinine [Mass/Vol] 1.57 mg/dL High 0.55-1.02 [facility] Comment on above: Result Comment: The validity of the calculated GFR GFRAA in patients over70 years has not been determined. Clinical correlation isessential. Performed By: #### L 100.0500, L500.2500 ####[facility] [address] [place], [address] ECRCL 59.45 ml/min Normal [facility] Comment on above: Performed By: #### L 100.0500, L500.2500 ####[facility] [address] [place], [address] EST GFR - AA 47 mL/min Low >60 [facility] Comment on above: Result Comment: Afri can [place] GFR Calc Performed By: #### L 100.0500, L500.2500 ####[facility] [address] [place], [address] GAP 5 Normal 5-15 [facility] Comment on above: Performed By: #### L 100.0500, L500.2500 ####[facility] [address] [place], [address] GFR/1.73 sq M.predicted among non-blacks MDRD (S/P/Bld) [Vol rate/Area] 39 mL/min/{1.73_m2} Low >60 [facility] Comment on above: Result Comment: Non- GFR Calc Performed By: #### L 100.0500, L500.2500 ####[facility] [address] [place], [address] Glucose [Mass/Vol] 106 mg/dL Normal 74-106 [facility] Comment on above: Result Comment: Fast ing Glucose result from 100 to 125 mg/dLsuggests IMPAIRED HOMEOSTASIS per A.D.A. criteria. Performed By: #### L 100.0500, L500.2500 ####[facility] [address] [place], [address] Potassium [Moles/Vol] 5.4 mmol/L High 3.5-5.1 [facility] Comment on above: Result Comment: Mode rate Hemolysis, Result may be falsely increased. Performed By: #### L 100.0500, L500.2500 ####[facility] [address] [place], [address] Sodium [Moles/Vol] 138 mmol/L Normal 136-145 [facility] Comment on above: Performed By: #### L 100.0500, L500.2500 ####[facility] [address] [place], [address] Urea nitrogen [Mass/Vol] 133 mg/dL Invalid Interpretation Code -18 [facility] [place] Comment on above: Result Comment: Crit ical Result(s) Called at: 09:50:26 02/18/2024 by: Ihsan Hernandez. Results read back by same. Performed By: #### L 100.0500, L500.2500 ####[facility] [address] [place], [address] CBC W/Diff, Automatedon 02-07 PATH REV Reviewed Normal [facility] Comment on above: Result Comment: Neut rophilic leukocytosis.Macrocytic anemia.Sunday Keller M.D. 02/18/24 AMENDED REPORT 02/18/24 1357 PATH REV previously reported as: July pj Performed By: #### L 503.6005, L100.0100, L500.2500, L503.6620 ####[facility] [address] [place], [address] CBC-Complete Blood Cnt No Di ffon 02-18-2024 Erythrocyte distribution width (RBC) [Ratio] 13.6 % Normal 11.6-14.6 [facility] Comment on above: Performed By: #### L 100.0500, L500.2500 ####[facility] [address] [place], [address] Hematocrit (Bld) [Volume fraction] 31.6 % Low 37-47 [facility] Comment on above: Performed By: #### L 100.0500, L500.2500 ####[facility] [address] [place], [address] Hemoglobin (Bld) [Mass/Vol] 9.7 g/dL Low 12.0-15.0 [facility] Comment on above: Performed By: #### L 100.0500, L500.2500 ####[facility] [address] [place], [address] MCH (RBC) [Entitic mass] 31.4 pg Normal 27.0-32.0 [facility] Comment on above: Performed By: #### L 100.0500, L500.2500 ####[facility] [address] [place], [address] MCHC (RBC) [Mass/Vol] 30.7 g/dL Low 32-36 [facility] Comment on above: Performed By: #### L 100.0500, L500.2500 ####[facility] [address] [place], [address] MCV (RBC) [Entitic vol] 102.3 fL High 81-99 [facility] Comment on above: Performed By: #### L 100.0500, L500.2500 ####[facility] [address] [place], [address] Platelet mean volume (Bld) [Entitic vol] 10.6 fL Normal 6.2-12.0 [facility] Comment on above: Performed By: #### L 100.0500, L500.2500 ####[facility] [address] [place], [address] Platelets (Bld) [#/Vol] 181 10*3/uL Normal 150-450 [facility] Comment on above: Performed By: #### L 100.0500, L500.2500 ####[facility] [address] [place], [address] RBC (Bld) [#/Vol] 3.09 10*6/uL Low 4.2-5.4 [facility] Comment on above: Performed By: #### L 100.0500, L500.2500 ####[facility] [address] [place], [address] RDW SD 51.6 fl High 35.1-43.9 [facility] Comment on above: Performed By: #### L 100.0500, L500.2500 ####[facility] [address] [place], [address] WBC (Bld) [#/Vol] 11.4 10*3/uL High 4.4-11.0 [facility] Comment on above: Performed By: #### L 100.0500, L500.2500 ####[facility] [address] [place], [address] 12 Lead EKGon 02-17-2024 12 Lead EKG Normal [facility] BNP,B-Type NATRIURETIC PEPTI Christa 02-17-2024 Natriuretic peptide B (Bld) [Mass/Vol] 25.1 pg/mL Normal 0-100 [facility] Comment on above: Performed By: #### L 503.6005, L100.0100, L500.2500, L503.6620 ####[facility] [address] [place], [address] Basic Metabolic Profile (BMP )on 02-17-2024 BUN/CRE 73.4 RATIO High 10-20 [facility] Comment on above: Performed By: #### L 503.6005, L100.0100, L500.2500, L503.6620 ####[facility] [address] [place], [address] CA,Total 9.2 mg/dL Normal 8.5-10.1 [facility] Comment on above: Performed By: #### L 503.6005, L100.0100, L500.2500, L503.6620 ####[facility] [address] [place], [address] Chloride [Moles/Vol] 92 mmol/L Low 98-107 [facility] Comment on above: Performed By: #### L 503.6005, L100.0100, L500.2500, L503.6620 ####[facility] [address] [place], [address] CO2 [Moles/Vol] 37.0 mmol/L High 21.0-32.0 [facility] Comment on above: Performed By: #### L 503.6005, L100.0100, L500.2500, L503.6620 ####[facility] [address] [place], [address] Creatinine [Mass/Vol] 1.99 mg/dL High 0.55-1.02 [facility] Comment on above: Result Comment: The validity of the calculated GFR GFRAA in patients over70 years has not been determined. Clinical correlation isessential. Performed By: #### L 503.6005, L100.0100, L500.2500, L503.6620 ####[facility] [address] [place], [address] ECRCL 47.49 ml/min Normal [facility] Comment on above: Performed By: #### L 503.6005, L100.0100, L500.2500, L503.6620 ####[facility] [address] [place], [address] EST GFR - AA 35 mL/min Low >60 [facility] Comment on above: Result Comment: Afri can [place] GFR Calc Performed By: #### L 503.6005, L100.0100, L500.2500, L503.6620 ####[facility] [address] [place], [address] GAP 5 Normal 5-15 [facility] Comment on above: Performed By: #### L 503.6005, L100.0100, L500.2500, L503.6620 ####[facility] [address] [place], [address] GFR/1.73 sq M.predicted among non-blacks MDRD (S/P/Bld) [Vol rate/Area] 29 mL/min/{1.73_m2} Low >60 [facility] Comment on above: Result Comment: Non- GFR Calc Performed By: #### L 503.6005, L100.0100, L500.2500, L503.6620 ####[facility] [address] [place], [address] Glucose [Mass/Vol] 102 mg/dL Normal 74-106 [facility] Comment on above: Result Comment: Fast ing Glucose result from 100 to 125 mg/dLsuggests IMPAIRED HOMEOSTASIS per A.D.A. criteria. Performed By: #### L 503.6005, L100.0100, L500.2500, L503.6620 ####[facility] [address] [place], [address] Potassium [Moles/Vol] 4.9 mmol/L Normal 3.5-5.1 [facility] Comment on above: Performed By: #### L 503.6005, L100.0100, L500.2500, L503.6620 ####[facility] [address] [place], [address] Sodium [Moles/Vol] 134 mmol/L Low 136-145 [facility] Comment on above: Performed By: #### L 503.6005, L100.0100, L500.2500, L503.6620 ####[facility] [address] [place], [address] Urea nitrogen [Mass/Vol] 146 mg/dL Invalid Interpretation Code 7-18 [facility] Comment on above: Result Comment: Crit ical Result(s) Called at: 14:46:52 02/17/2024 by: Ihsan Sawyer Results read back by same. Performed By: #### L 503.6005, L100.0100, L500.2500, L503.6620 ####[facility] [address] [place], [address] Bedside Glucoseon 02-17-2024 FINGERSTICK GLU 112 mg/dL High 74-106 [facility] Comment on above: Result Comment: ETHAN PRITCHETT OF PATIENT CARE PER NURSING PROTOCOL Performed By: #### L 501.080 ####[facility] [address] [place], [address] Chest 1 View (Portable)on Chest 1 View (Portable) Normal [facility] Emergency Department Summary on 02-17-2024 Emergency Department Summary Normal [facility] H AND P Exam - Hospitaliston 02-17-2024 H&P Exam - Hospitalist Normal [facility] Lactic Acidon 02-17-2024 Lactate [Moles/Vol] 0.6 mmol/L Normal 0.4-1.9 [facility] Comment on above: Order Comment: Y Performed By: #### L 503.6005, L100.0100, L500.2500, L503.6629 ####[facility] [address] [place], [address] CNOVon 02-16-2024 CNOV Office Visit (INTMWS ) CHANTELLSIA Grimm ([id number]) 1980 F Date Time Provider Department 02/16/24 3:00 PM MARILEE THAKUR INTMWS During your visit today, we recorded the following information about you: Pulse Blood pressure Weight 57/minute 78/58 131.1 kg Marilee Thakur MD 02/16/2024 5:50 PM Signed Reason for Visit Patient presents with: Recheck: Medication Louiskyleighjacques Abdul is a 42 year old female who presents here today for Above Complaints.. Health Maintenance HEPATITIS B(1 of 3 - 3-dose series) SPIROMETRY PNEUMOCOCCAL(2 - PCV) DEPRESSION ASSESSMENT MAMMOGRAM AKLPESH Martell is a very pleasant 41-year-old woman [...] massagers and she is on the lasix. 01/12/2024: The patient was admitted from December 26 to January 01 for 30 pound weight gain which is thought to be from water weight gain. She was in the ICU and was diuresed her left ventricular ejection fraction was found to be 55%. The right ventricle was mildly dilated with mild global right ventricular systolic dysfunction she also had moderate tricuspid valve insufficiency which is 2+ and her pulmonary artery systolic pressure is 67 which is elevated. On review of her discharge reported says she has acute respiratory failure with hypoxia and hypercapnia. 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 CTA was done to rule out pulmonary embolism and it showed no coronary artery calcifications. 02/16/24: Here for follow up. Her bp is on the lower side but she has not complaints. She denies feeling tired, fatigued, dizzy, less energy. Patient does not feel anything different of late. She is on torsemide 40 , 2 times a day and Metolazone 2.5 mgs daily but she has not lost weight , although she has not gained any weight. Patient denies feeling chest patient and sob, the 20 pounds water weight seems to be more in the abdomen and legs as opposed to the chest. She did get blood work done which showed normal potassium, sodium and magnesium is high. Her bp was extremely low the last time. Patient did not get her lymphedema compression pumps. She is elevating her legs multiple times a day. She is going to get tyler wraps all the way to her hips but patient does not like that as much. Reviewed labs, mag is high at 2.9, we can stop the supplementation. Her white count was elevated. She has been to the lung doctor had a sleep study this week and she may be on oxygen in the night. She is following a fluid restriction. No problem-specific Assessment AND Plan notes found [...] reviewed and discussed today Current Outpatient Medications: mometasone-formoterol (DULERA) 100-5 mcg/actuation inhaler fluticasone (FLONASE) 50 mcg/ac (more content not included)... Normal [facility] CBC W Auto Differential pane l (Bld)on 02-13-2024 Basophils (Bld) [#/Vol] 0.05 10*3/uL Normal <0.11 [facility] Comment on above: Order Comment: Seema silva Type: BLOOD SPECIMEN Ordering Facility: [facility] Address: [address] [place] [address] Performed By: #### 5 7021-8 #### [facility] CLIA [id number] [address] [place] [address] [place] [address] [place] Basophils/100 WBC (Bld) 0.4 % Normal [facility] Comment on above: Order Comment: Seema silva Type: BLOOD SPECIMEN Ordering Facility: [facility] Address: [address] [place] [address] Performed By: #### 5 7021-8 #### [facility] CLIA [id number] [address] [place] [address] [place] Differential cell count method Nom (Bld) Auto Normal [facility] Comment on above: Order Comment: Speci men Type: BLOOD SPECIMEN Ordering Facility: [facility] Address: [address] [place] [address] Performed By: #### 5 7021-8 #### [facility] CLIA [id number] [address] [place] [address] [place] Eosinophils (Bld) [#/Vol] 0.32 10*3/uL Normal <0.46 [facility] Comment on above: Order Comment: Speci men Type: BLOOD SPECIMEN Ordering Facility: [facility] Address: [address] [place] [address] Performed By: #### 5 7021-8 #### [facility] CLIA [id number] [address] [place] [address] [place] Eosinophils/100 WBC (Bld) 2.6 % Normal [facility] Comment on above: Order Comment: Speci men Type: BLOOD SPECIMEN Ordering Facility: [facility] Address: [address] [place] [address] Performed By: #### 5 7021-8 #### [facility] CLIA [id number] [address] [place] [address] [place] Erythrocyte distribution width (RBC) [Ratio] 13.5 % Normal 11.5-15.0 [facility] Comment on above: Order Comment: Speci men Type: BLOOD SPECIMEN Ordering Facility: [facility] Address: [address] [place] [address] Performed By: #### 5 7021-8 #### [facility] CLIA [id number] [address] [place] [address] [place] Hematocrit (Bld) [Volume fraction] 38.7 % Normal 36.0-46.0 [facility] Comment on above: Order Comment: Speci men Type: BLOOD SPECIMEN Ordering Facility: [facility] Address: [address] [place] [address] Performed By: #### 5 7021-8 #### [facility] CLIA [id number] [address] [place] [address] [place] Hemoglobin (Bld) [Mass/Vol] 12.1 g/dL Normal 11.5-15.5 [facility] Comment on above: Order Comment: Speci men Type: BLOOD SPECIMEN Ordering Facility: [facility] Address: [address] [place] [address] Performed By: #### 5 7021-8 #### [facility] CLIA [id number] [address] [place] [address] [place] Immature granulocytes (Bld) [#/Vol] 0.07 10*3/uL Normal <0.10 [facility] Comment on above: Order Comment: Speci men Type: BLOOD SPECIMEN Ordering Facility: [facility] Address: [address] [place] [address] Performed By: #### 5 7021-8 #### [facility] CLIA [id number] [address] [place] [address] [place] Immature granulocytes/100 WBC (Bld) 0.6 % Normal [facility] Comment on above: Order Comment: Speci men Type: BLOOD SPECIMEN Ordering Facility: [facility] Address: [address] [place] [address] Performed By: #### 5 7021-8 #### [facility] CLIA [id number] [address] [place] [address] [place] Lymphocytes (Bld) [#/Vol] 2.11 10*3/uL Normal 1.00-4.00 [facility] Comment on above: Order Comment: Speci men Type: BLOOD SPECIMEN Ordering Facility: [facility] Address: [address] [place] [address] Performed By: #### 5 7021-8 #### [facility] CLIA [id number] [address] [place] [address] [place] Lymphocytes/100 WBC (Bld) 17.3 % Normal [facility] Comment on above: Order Comment: Speci men Type: BLOOD SPECIMEN Ordering Facility: [facility] Address: [address] [place] [address] Performed By: #### 5 7021-8 #### [facility] CLIA [id number] [address] [place] [address] [place] MCH (RBC) [Entitic mass] 32.2 pg Normal 26.0-34.0 [facility] Comment on above: Order Comment: Speci men Type: BLOOD SPECIMEN Ordering Facility: [facility] Address: [address] [place] [address] Performed By: #### 5 7021-8 #### [facility] CLIA [id number] [address] [place] [address] [place] MCHC (RBC) [Mass/Vol] 31.3 g/dL Normal 30.5-36.0 [facility] Comment on above: Order Comment: Speci men Type: BLOOD SPECIMEN Ordering Facility: [facility] Address: [address] [place] [address] Performed By: #### 5 7021-8 #### [facility] CLIA [id number] [address] [place] [address] [place] MCV (RBC) [Entitic vol] 102.9 fL High 80.0-100.0 [facility] Comment on above: Order Comment: Speci men Type: BLOOD SPECIMEN Ordering Facility: [facility] Address: [address] [place] [address] Performed By: #### 5 7021-8 #### [facility] CLIA [id number] [address] [place], [place] [address] [place] Monocytes (Bld) [#/Vol] 1.39 10*3/uL High <0.87 [facility] Comment on above: Order Comment: Speci men Type: BLOOD SPECIMEN Ordering Facility: [facility] Address: [address] [place] [address] Performed By: #### 5 7021-8 #### [facility] CLIA [id number] [address] [place] [address] [place] Monocytes/100 WBC (Bld) 11.4 % Normal [facility] Comment on above: Order Comment: Speci men Type: BLOOD SPECIMEN Ordering Facility: [facility] Address: [address] [place] [address] Performed By: #### 5 7021-8 #### [facility] CLIA [id number] [address] [place] [address] [place] Neutrophils (Bld) [#/Vol] 8.25 10*3/uL High 1.45-7.50 [facility] Comment on above: Order Comment: Speci men Type: BLOOD SPECIMEN Ordering Facility: [facility] Address: [address] [place] [address] Performed By: #### 5 7021-8 #### [facility] CLIA [id number] [address] [place] [address] [place] Neutrophils/100 WBC (Bld) 67.7 % Normal [facility] Comment on above: Order Comment: Speci men Type: BLOOD SPECIMEN Ordering Facility: [facility] Address: [address] [place] [address] Performed By: #### 5 7021-8 #### [facility] CLIA [id number] [address] [place] [address] [place] Nucleated RBC (Bld) [#/Vol] 10*3/uL Normal <0.01 [facility] Comment on above: Order Comment: Speci men Type: BLOOD SPECIMEN Ordering Facility: [facility] Address: [address] [place] [address] Performed By: #### 5 7021-8 #### [facility] CLIA [id number] [address] [place] [address] [place] Nucleated RBC/100 WBC (Bld) [Ratio] 0.0 /100 WBC Normal [facility] Comment on above: Order Comment: Speci men Type: BLOOD SPECIMEN Ordering Facility: [facility] Address: [address] [place] [address] Performed By: #### 5 7021-8 #### [facility] CLIA [id number] [address] [place] [address] [place] Platelet mean volume (Bld) [Entitic vol] 11.9 fL Normal 9.0-12.7 [facility] Comment on above: Order Comment: Speci men Type: BLOOD SPECIMEN Ordering Facility: [facility] Address: [address] [place] [address] Performed By: #### 5 7021-8 #### [facility] CLIA [id number] [address] [place] [address] [place] Platelets (Bld) [#/Vol] 207 10*3/uL Normal 150-400 [facility] Comment on above: Order Comment: Speci men Type: BLOOD SPECIMEN Ordering Facility: [facility] Address: [address] [place] [address] Performed By: #### 5 7021-8 #### [facility] CLIA [id number] [address] [place] [address] [place] RBC (Bld) [#/Vol] 3.76 10*6/uL Low 3.90-5.20 [facility] Comment on above: Order Comment: Speci men Type: BLOOD SPECIMEN Ordering Facility: [facility] Address: [address] [place] [address] Performed By: #### 5 7021-8 #### [facility] CLIA [id number] [address] [place] [address] [place] WBC (Bld) [#/Vol] 12.19 10*3/uL High 3.70-11.00 [facility] Comment on above: Order Comment: Speci men Type: BLOOD SPECIMEN Ordering Facility: [facility] Address: [address] [place] [address] Performed By: #### 5 7021-8 #### [facility] CLIA [id number] [address] [place] [address] [place] Comprehensive metabolic 2000 panelon 02-13-2024 Albumin [Mass/Vol] 4.2 g/dL Normal 3.9-4.9 [facility] Comment on above: Order Comment: Speci men Type: BLOOD SPECIMENOrdering Facility: [facility] Address: [address] [place] [address] Performed By: #### 1 9123-9, 71229-1 ####[facility] [id number] [place] [address] [place] ALP [Catalytic activity/Vol] 88 U/L Normal 34-123 [facility] Comment on above: Order Comment: Speci men Type: BLOOD SPECIMENOrdering Facility: [facility] Address: [address] [place] [address] Performed By: #### 1 9123-9, 81683-7 ####[facility] [id number] [place] [address] [place] ALT [Catalytic activity/Vol] 23 U/L Normal 7-38 [facility] Comment on above: Order Comment: Speci men Type: BLOOD SPECIMENOrdering Facility: [facility] Address: [address] [place] [address] Performed By: #### 1 9123-9, 40164-0 ####[facility] [id number] [place] [address] [place] Anion gap [Moles/Vol] 15 mmol/L Normal 8-15 [facility] Comment on above: Order Comment: Speci men Type: BLOOD SPECIMENOrdering Facility: [facility] Address: [address] [place] [address] Performed By: #### 1 9123-9, ####[facility] [id number] [place] [address] [place] AST [Catalytic activity/Vol] 23 U/L Normal 13-35 [facility] Comment on above: Order Comment: Speci men Type: BLOOD SPECIMENOrdering Facility: [facility] Address: [address] [place] [address] Performed By: #### 1 9123-9, ####[facility] [id number] [place] [address] [place] Bilirubin [Mass/Vol] 0.3 mg/dL Normal 0.2-1.3 [facility] Comment on above: Order Comment: Speci men Type: BLOOD SPECIMENOrdering Facility: [facility] Address: [address] [place] [address] Performed By: #### 1 9123-9, ####[facility] [id number] [place] [address] [place] Calcium [Mass/Vol] 9.1 mg/dL Normal 8.5-10.2 [facility] Comment on above: Order Comment: Speci men Type: BLOOD SPECIMENOrdering Facility: [facility] Address: [address] [place] [address] Performed By: #### 1 9123-9, ####[facility] [id number] [place] [address] [place] Chloride [Moles/Vol] 91 mmol/L Low 98-107 [facility] Comment on above: Order Comment: Speci men Type: BLOOD SPECIMENOrdering Facility: [facility] Address: [address] [place] [address] Performed By: #### 1 9123-9, 83679-8 ####[facility] LABCLIA [id number] [place] [address] [place] CO2 [Moles/Vol] 30 mmol/L Normal 22-30 [facility] Comment on above: Order Comment: Speci men Type: BLOOD SPECIMENOrdering Facility: [facility] Address: [address] [place] [address] Performed By: #### 1 9123-9, 49908-5 ####[facility] LABIA [id number] [place] [address] [place] Creatinine [Mass/Vol] 1.28 mg/dL High 0.58-0.96 [facility] Comment on above: Order Comment: Speci men Type: BLOOD SPECIMENOrdering Facility: [facility] Address: [address] [place] [address] Performed By: #### 1 9123-9, 74693-2 ####[facility] LABIA [id number] [place] [address] [place] Creatinine and Glomerular filtration rate.predicted panel (S/P/Bld) 54 mL/min/1.73m??? Low >=60 [facility] Comment on above: Order Comment: Speci men Type: BLOOD SPECIMENOrdering Facility: [facility] Address: [address] [place] [address] Result Comment: Roby mated Glomerular Filtration Rate (eGFR) is calculated using the 2020 CKD-EPI creatinine equation. This equation utilizes serum creatinine, sex, and age as parameters. The creatinine assay has traceable calibration to isotope dilution-mass spectrometry. Refer to KDIGO guidelines for clinical interpretation. In patients with unstable renal function, e.g. those with acute kidney injury, the eGFR may not accurately reflect actual GFR. Performed By: #### 1 9123-9, 57662-9 ####[facility] LABCLIA [id number] [place] [address] [place] Glucose [Mass/Vol] 96 mg/dL Normal 74-99 [facility] Comment on above: Order Comment: Speci men Type: BLOOD SPECIMENOrdering Facility: [facility] Address: [address] [place] [address] Result Comment: The [place] Diabetes Association (ADA) provides guidance for cutoff values for fasting glucose and random glucose. The ADA defines fasting as no caloric intake for at least 8 hours. Fasting plasma glucose results between 100 to 125 mg/dL indicate increased risk for diabetes (prediabetes). Fasting plasma glucose results greater than or equal to 126 mg/dL meet the criteria for diagnosis of diabetes. In the absence of unequivocal hyperglycemia, results should be confirmed by repeat testing. In a patient with classic symptoms of hyperglycemia or hyperglycemic crisis, random plasma glucose results greater than or equal to 200 mg/dL meet the criteria for diagnosis of diabetes. Reference: Standards of Medical Care in Diabetes 2016, [place] [employer] Association. Diabetes Care. 2016.39(Suppl 1). Performed By: #### 1 9123-9, 53918-4 ####[facility] LABCLIA [id number] [place] [address] [place] Potassium [Moles/Vol] 4.3 mmol/L Normal 3.7-5.1 [facility] Comment on above: Order Comment: Speci men Type: BLOOD SPECIMENOrdering Facility: [facility] Address: [address] [place] [address] Performed By: #### 1 9123-9, 96787-7 ####[facility] LABCLIA [id number] [place] [address] [place] Protein [Mass/Vol] 7.2 g/dL Normal 6.3-8.0 [facility] Comment on above: Order Comment: Speci men Type: BLOOD SPECIMENOrdering Facility: [facility] Address: [address] [place] [address] Performed By: #### 1 9123-9, 85040-4 ####[facility] LABCLIA [id number] [place] [address] [place] Sodium [Moles/Vol] 136 mmol/L Normal 136-144 [facility] Comment on above: Order Comment: Speci men Type: BLOOD SPECIMENOrdering Facility: [facility] Address: [address] [place] [address] Performed By: #### 1 9123-9, 64489-1 ####[facility] LABIA [id number] [place] [address] [place] Urea nitrogen [Mass/Vol] 106 mg/dL High 7-21 [facility] Comment on above: Order Comment: Speci men Type: BLOOD SPECIMENOrdering Facility: [facility] Address: [address] [place] [address] Performed By: #### 1 9123-9, 94867-4 ####[facility] LABIA [id number] [place] [address] [place] Magnesium SerPl-mCncon 02-12 Magnesium [Mass/Vol] 2.9 mg/dL High 1.7-2.3 [facility] Comment on above: Order Comment: Speci men Type: BLOOD SPECIMENOrdering Facility: [facility] Address: [address] [place] [address] Performed By: #### 1 9123-9, 38535-7 ####[facility] LABIA [id number] [place] [address] [place] CNPSachi 02-10-2024 CNPN Telephone (INTMWS) SIA ABDUL ([id number]) 1980 F Date Time Provider Department 02/10/24 MARILEE THAKUR During your visit today, we recorded the following information about you: Pamela Singh LPN 02/10/2024 11:09 AM Signed Leia with [facility], PT calling to see if you will give verbal orders for PT to come in to the home after hospitalization. DX. weakness and difficulty getting around. Please advise Leia with Verbal order to follow and sign. JORDAN Boston Chitra, MD 02/10/2024 4:40 PM Signed Verbal ok for the same Regards, Aaliyah Almeida MD, MA 02/10/2024 4:45 PM Signed Leia notified and verbalized understanding. Aaliyah Gonzalez MA Allergies As of Date: 02/10/2024 Noted Allergy Reaction BEE STING 02/28/2023 10 - Anaphylaxis DILANTIN (PHENYTOIN SODIUM EXTEND*01/28/2006 Date Reviewed: 02/06/2024 Reviewed by: Isela Leyva LPN - Fully Assessed Reason for Visit: [facility]-verbal orders [Other] Prescriptions as of 02/10/2024 - mometasone-formoterol (DULERA) 100-5 mcg/actuation inhaler Inhale 2 Puffs as instructed two times a day. - fluticasone (FLONASE) 50 mcg/actuation nasal spray INSTILL 2 SPRAYS IN EACH NOSTRIL DAILY - diphenoxylate-atropine (LOMOTIL) 2.5-0.025 mg per tablet Take 1 tablet by mouth four times a day as needed. - ondansetron (ZOFRAN) 4 mg tablet Take by mouth every 8 hours as needed for nausea/vomiting. - aspirin 81 mg chewable tablet Take 81 mg by mouth once daily. - magnesium oxide (MAG-OX) 400 mg (241.3 mg magnesium) tablet Take 1 tablet by mouth once daily. - metOLazone (ZAROXOLYN) 2.5 mg tablet Take 1 tablet by mouth once daily. - torsemide (DEMADEX) 20 mg tablet Take 1 tablet by mouth two times a day. - carvedilol (COREG) 3.125 mg tablet Take 1 tablet by mouth two times a day. - lisinopril (ZESTRIL) 5 mg tablet Take 1 tablet by mouth once daily. - potassium chloride 20 mEq TbER Take 1 tablet by mouth once daily. - ammonium lactate (LAC-HYDRIN) 12 % cream APPLY TOPICALLY TO AFFECTED AREA(S) ON LEGS AT BEDTIME - Leg Brace (TRUE CMFT KNEE COMPRESSION) misc 1 Each once daily. - multivitamin-ferrous fumarate-folic acid (CERTAVITE-ANTIOXIDANT ) Take 1 tablet by mouth once daily. 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 Normal [facility] CNOVon 02-06-2024 CNOV Office Visit (INTMWS ) SIA ABDUL ([id number]) 1980 F Date Time Provider Department 02/06/24 11:40 AM MARILEE THAKUR INTMWS During your visit today, we recorded the following information about you: Pulse Blood pressure Weight 65/minute 112/77 130.2 kg Marilee Thakur MD 02/06/2024 2:56 PM Signed Reason for Visit Patient presents with: Hospital F/U: [facility] 01/26/24 dx CHF Sia Abdul is a 42 year old female [...] massagers and she is on the lasix. 01/12/2024: The patient was admitted from December 26 to January 01 for 30 pound weight gain which is thought to be from water weight gain. She was in the ICU and was diuresed her left ventricular ejection fraction was found to be 55%. The right ventricle was mildly dilated with mild global right ventricular systolic dysfunction she also had moderate tricuspid valve insufficiency which is 2+ and her pulmonary artery systolic pressure is 67 which is elevated. On review of her discharge reported says she has acute respiratory failure with hypoxia and hypercapnia. 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 CTA was done to rule out pulmonary embolism and it showed no coronary artery calcifications. 02/06/24: She is here with her furnace caretaker. TCM Eligibility Documentation Program: Transitional Care Management Status: Enrolled Effective Dates: 01/28/2024 - present Responsible Staff: Bradley Flores RN Discharge date: 01/26/2024 (Program start) Date of initial contact: 01/28/2024 Initial contact Target status: Successful; Contact made within 2 business days post-discharge Patient was admitted from January 22 to January 25 with CHF exacerbation. She has normal systolic function of the left ventricle but the right ventricle has dysfunction, is enlarged and it is not working very well. She also has mitral regurgitation which is contributing to her presentation in addition to pulmonary hypertension which is likely class II. Her normal weight is around 115 kg but she was at 134 in the hospital and now is 130. Recently she was more at 125. She is back on Lasix but that is not working very well for her. She is seeing cardiology and pulmonology for her pulm hypertension. She says she is compliant with a sleep machine but there is concerns about that. Out the hospital she was 290 lbs and today she is 287. 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 She is on toresemide, I am adding metolazone to the mix of medication. No problem-specific Assessment AND Plan notes found [...] Never Substance Use Topics Alcohol use: No (more content not included)... Normal [facility] Tal 02-03-2024 OBEDN Telephone (INTMWS) SIA ABDUL ([id number]) 1980 F Date Time Provider Department 02/03/24 MARILEE THAKUR During your visit today, we recorded the following information about you: Lillie Marshall RN 02/03/2024 1:35 PM Signed Clarence from [facility] calls asking if provider will continue to sign orders for retirement, physical therapy, and occupational therapy. RODRÍGUEZ aCrnes Chitra, MD 02/03/2024 5:06 PM Signed Yes will sign Marilee Lassiter MD, Rachel L, MA 02/04/2024 8:56 AM Signed Clarence at [facility] notified. Aaliyah Gonzalez MA Allergies As of Date: 02/03/2024 Noted Allergy Reaction BEE STING 02/28/2023 10 - Anaphylaxis DILANTIN (PHENYTOIN SODIUM EXTEND*01/28/2006 Date Reviewed: 01/12/2024 Reviewed by: Aaliyah Gonzalez MA - Fully Assessed Reason for Visit: Home Health Orders [Other] Prescriptions as of 02/04/2024 - fluticasone (FLONASE) 50 mcg/actuation nasal spray INSTILL 2 SPRAYS IN EACH NOSTRIL DAILY - torsemide (DEMADEX) 20 mg tablet Take 1 tablet by mouth two times a day. - carvedilol (COREG) 3.125 mg tablet Take 1 tablet by mouth two times a day. - lisinopril (ZESTRIL) 5 mg tablet Take 1 tablet by mouth once daily. - potassium chloride 20 mEq TbER Take 1 tablet by mouth once daily. - ammonium lactate (LAC-HYDRIN) 12 % cream APPLY TOPICALLY TO AFFECTED AREA(S) ON LEGS AT BEDTIME - Leg Brace (TRUE CMFT KNEE COMPRESSION) misc 1 Each once daily. - multivitamin-ferrous fumarate-folic acid (CERTAVITE-ANTIOXIDANT ) Take 1 tablet by mouth once daily. - Faryj-7-CNL-EPA-Fish Oil 1,000 mg (120 mg-180 mg) cap [...] 4pm Dx:Q87.1 Problem List As Of Date 02/03/2024 Noted Resolved Other malaise and fatigue [R53.81, [...] 40.0-44.9, adult (HCC) [Z68.41] 12/14/2014 02/09/2015 BMI 45.0-49. (more content not included)... Normal [facility] Basic Metabolic Profile (BMP )on 01-27-2024 BUN Normal 09-24 [facility] Comment on above: Result Comment: Canc elled via OM: Order cancelled - Patient discharged Performed By: #### L 500.2500 ####[facility] [address] [place], [address] BUN/CRE Normal 12-27 [facility] Comment on above: Result Comment: Canc elled via OM: Order cancelled - Patient discharged Performed By: #### L 500.2500 ####[facility] [address] [place], [address] CA,Total Normal 8.5-10.1 [facility] Comment on above: Result Comment: Canc elled via OM: Order cancelled - Patient discharged Performed By: #### L 500.2500 ####[facility] [address] [place], [address] CL Normal 98-107 [facility] Comment on above: Result Comment: Canc elled via OM: Order cancelled - Patient discharged Performed By: #### L 500.2500 ####[facility] [address] [place], [address] CO2 Normal 21.0-32.0 [facility] Comment on above: Result Comment: Canc elled via OM: Order cancelled - Patient discharged Performed By: #### L 500.2500 ####[facility] [address] [place], [address] CREAT,SERUM Normal 0.55-1.02 [facility] Comment on above: Result Comment: Canc elled via OM: Order cancelled - Patient discharged Performed By: #### L 500.2500 ####[facility] [address] [place], [address] EST GFR Normal >60 [facility] Comment on above: Result Comment: Canc elled via OM: Order cancelled - Patient discharged Performed By: #### L 500.2500 ####[facility] [address] [place], [address] EST GFR - AA Normal >60 [facility] Comment on above: Result Comment: Canc elled via OM: Order cancelled - Patient discharged Performed By: #### L 500.2500 ####[facility] [address] [place], [address] GAP Normal 5-15 [facility] Comment on above: Result Comment: Canc elled via OM: Order cancelled - Patient discharged Performed By: #### L 500.2500 ####[facility] [address] [place], [address] GLU Normal 74-106 [facility] Comment on above: Result Comment: Canc elled via OM: Order cancelled - Patient discharged Performed By: #### L 500.2500 ####[facility] [address] [place], [address] Potassium Normal 3.5-5.1 [facility] Comment on above: Result Comment: Canc elled via OM: Order cancelled - Patient discharged Performed By: #### L 500.2500 ####[facility] [address] [place], [address] Basic Metabolic Profile (BMP) Normal 136-145 [facility] Comment on above: Result Comment: Canc elled via OM: Order cancelled - Patient discharged Performed By: #### L 500.2500 ####[facility] [address] [place], [address] [facility] E[facility] (TTE) COMPLETE [facility] [address] [facility], [address], [place] [address] TRANSTHORACIC ECHOCARDIOGRAM REPORT Patient Name: SIA ABDUL Reading Physician: [id number] Goodman MD Study Date: 01/27/2024 Ordering Provider: [id number] ISI GOODMAN MRN/PID: [id number] Fellow: Nurse: Date of /Age: 406/30/1980 Rolled Glass Crosscutter: Rafia john RDCS Gender assigned at F Additional Staff: : Height: 142.24 cm Admit Date: Weight: 133.36 kg Admission Status: Outpatient BSA / BMI: 2.09 m2 / 65.91 kg/m2 Blood Pressure: 109/74 mmHg Department Location: Study Type: TRANSTHORACIC ECHO (TTE) COMPLETE Diagnosis/ICD: Other forms of dyspnea-R06.09; Localized edema-R60.0 Indication: MARINO, Edema CPT Code: Echo Complete w Full Doppler-83537 Study Detail: The following Echo studies were performed: 2D, M-Mode, Doppler and color flow. PHYSICIAN INTERPRETATION: Left Ventricle: Left ventricular ejection fraction is normal, calculated by Lucas's biplane at 63%. There are no regional left ventricular wall motion abnormalities. The left ventricular cavity size is normal. There is normal septal and normal posterior left ventricular wall thickness. Spectral Doppler shows a Grade I (impaired relaxation pattern) of left ventricular diastolic filling with normal left atrial filling pressure. Left Atrium: The left atrium is normal in size. Right Ventricle: The right ventricle is moderately enlarged. There is normal right ventricular global systolic function. Right Atrium: The right atrium is mildly dilated. Aortic Valve: The aortic valve is trileaflet. There is mild aortic valve cusp calcification. There is evidence of mildly elevated transaortic gradients consistent with sclerosis of the aortic valve. There are increased aortic valve velocities due to increased flow/dynamic ejection. The aortic valve dimensionless index is 0.69. There is no evidence of aortic valve regurgitation. The peak instantaneous gradient of the aortic valve is 18 mmHg. The mean gradient of the aortic valve is 9 mmHg. Mitral Valve: The mitral valve is normal in structure. There is trace mitral valve regurgitation. Tricuspid Valve: The tricuspid valve is structurally normal. There is mild to moderate tricuspid regurgitation. The Doppler estimated RVSP is mildly elevated at 41.0 mmHg. Pulmonic Valve: The pulmonic valve is not well visualized. The pulmonic valve regurgitation was not well visualized. Pericardium: There is no pericardial effusion noted. Aorta: The aortic root is normal. Systemic Veins: The inferior vena cava appears normal in size. In comparison to the previous echocardiogram(s): Compared with study dated 12/31/2016,. Moderately enlarged RV; aortic valve sclerosis; mildly elevated RVSP noted on today's study. CONCLUSIONS: 1. Left ventricular ejection fraction is normal, calculated by Lucas's biplane at 63%. 2. Spectral Doppler shows a Grade I (impaired relaxation pattern) of left ventricular diastolic filling with normal left atrial filling pressure. 3. There is normal right ventricular global systolic function. 4. Moderately enlarged right ventricle. 5. Mild to moderate tricuspid regurgitation visualized. 6. Aortic valve sclerosis. 7. Mildly elevated right ventricular systolic pressure. QUANTITATIVE DATA SUMMARY: 2D MEASUREMENTS: Normal Ranges: Ao Root d: 1.70 cm (2.0-3.7cm) IVSd: 0.90 cm (0.6-1.1cm) LVPWd: 0.80 cm (0.6-1.1cm) LVIDd: 5.00 cm (3.9-5.9cm) LVIDs: 2.80 cm LV Mass Index: 70 g/m2 LVEDV Index: 44 ml/m2 LV % FS 44.0 % LA VOLUME: Normal Ranges: LA Vol A4C: 55.2 ml (22+/-6mL/m2) LA Vol A2C: 59.3 ml LA Vol BP: 57.3 ml LA Vol Index A4C: 26.4ml/m2 LA Vol Index A2C: 28.4 ml/m2 LA Vol Index BP: 27.4 ml/m2 LA Area A4C: 20.4 cm2 LA Area A2C: 21.1 cm2 LA Major [place] A4C: 6.4 cm LA Major [place] A2C: 6.4 cm RA VOLUME BY A/L METHOD: Normal Ranges: RA Vol A4C: 58.2 ml RA Area A4C: 18.9 cm2 AORTA MEASUREMENTS: Normal Ranges: Asc Ao, d: 1.80 cm (2.1-3.4cm) LV SYSTOLIC FUNCTION BY 2D PLANIMETRY (MOD): Normal Ranges: EF-A4C View: 68 % (>=55%) EF-A2C View: 59 % EF-Biplane: 63 % LV EF Reported: 63 % LV DIASTOLIC FUNCTION: Normal Ranges: MV Peak E: 0.72 m/s (0.7-1.2 m/s) MV Peak A: 0.81 m/s (0.42-0.7 m/s) E/A Ratio: 0.89 (1.0-2.2) MV e' 0.150 m/s (>8.0) MV lateral e' 0.18 m/s MV medial e' 0.12 m/s MV A Dur: 124.00 msec E/e' Ratio: 4.84 (<8.0) PulmV A Revs Dur: 108.00 msec MITRAL VALVE: Normal Ranges: MV DT: 307 msec (150-240msec) AORTIC VALVE: Normal Ranges: AoV Vmax: 2.10 m/s (<=1.7m/s) AoV Peak P.6 mmHg (<20mmHg) AoV Mean P.0 mmHg (1.7-11.5mmHg) LVOT Max Everardo: 1.53 m/s (<=1.1m/s) AoV VTI: 45.10 cm (18-25cm) LVOT VTI: 31.00 cm LVOT Diameter: 1.70 cm (1.8-2.4cm) AoV Area, VTI: 1.56 cm2 (2.5-5.5cm2) AoV Area,Vmax: 1.65 cm2 (2.5-4.5cm2) AoV Dimensionless Index: 0.69 (more content not included)... [facility] US Heart Transthoracicon Aortic Valve Area by Continuity of Peak Velocity 1.65 cm2 [facility] Work Phone: [phone] Aortic Valve Area by Continuity of VTI 1.56 cm2 [facility] Work Phone: [phone] AV mn grad 9 mmHg [facility] Work Phone: [phone] AV pk grad 18 mmHg [facility] Work Phone: [phone] AV pk everardo 2.1 m/s [facility] Work Phone: [phone] LA vol index A/L 27.4 ml/m2 [facility] Work Phone: [phone] LV A4C EF 67.7 [facility] Work Phone: [phone] LV EF 63 % [facility] Work Phone: [phone] LVIDd 5 cm [facility] Work Phone: [phone] LVOT diam 1.7 cm [facility] Work Phone: [phone] MV E/A ratio 0.89 [facility] Work Phone: [phone] RV free wall pk S' 14.9 cm/s [facility] Work Phone: [phone] RVSP 41 mmHg [facility] Work Phone: [phone] Tricuspid annular plane systolic excursion 3 cm [facility] Work Phone: [phone] [facility] [address], [address], [place] [address] TRANSTHORACIC ECHOCARDIOGRAM REPORT Patient Name: SIA ABDUL Reading Physician: [id number] Goodman MD Study Date: 01/27/2024 Ordering Provider: [id number] GOODMAN MRN/PID: [id number] Fellow: Nurse: Date of /Age: 406/30/1980 Rolled Glass Crosscutter: Rafia john KATY Gender assigned at F Additional Staff: : Height: 142.24 cm Admit Date: Weight: 133.36 kg Admission Status: Outpatient BSA / BMI: 2.09 m2 / 65.91 kg/m2 Blood Pressure: 109/74 mmHg Department Location: Study Type: TRANSTHORACIC ECHO (TTE) COMPLETE Diagnosis/ICD: Other forms of dyspnea-R06.09; Localized edema-R60.0 Indication: MARINO, Edema CPT Code: Echo Complete w Full Doppler-04728 Study Detail: The following Echo studies were performed: 2D, M-Mode, Doppler and color flow. PHYSICIAN INTERPRETATION: Left Ventricle: Left ventricular ejection fraction is normal, calculated by Lucas's biplane at 63%. There are no regional left ventricular wall motion abnormalities. The left ventricular cavity size is normal. There is normal septal and normal posterior left ventricular wall thickness. Spectral Doppler shows a Grade I (impaired relaxation pattern) of left ventricular diastolic filling with normal left atrial filling pressure. Left Atrium: The left atrium is normal in size. Right Ventricle: The right ventricle is moderately enlarged. There is normal right ventricular global systolic function. Right Atrium: The right atrium is mildly dilated. Aortic Valve: The aortic valve is trileaflet. There is mild aortic valve cusp calcification. There is evidence of mildly elevated transaortic gradients consistent with sclerosis of the aortic valve. There are increased aortic valve velocities due to increased flow/dynamic ejection. The aortic valve dimensionless index is 0.69. There is no evidence of aortic valve regurgitation. The peak instantaneous gradient of the aortic valve is 18 mmHg. The mean gradient of the aortic valve is 9 mmHg. Mitral Valve: The mitral valve is normal in structure. There is trace mitral valve regurgitation. Tricuspid Valve: The tricuspid valve is structurally normal. There is mild to moderate tricuspid regurgitation. The Doppler estimated RVSP is mildly elevated at 41.0 mmHg. Pulmonic Valve: The pulmonic valve is not well visualized. The pulmonic valve regurgitation was not well visualized. Pericardium: There is no pericardial effusion noted. Aorta: The aortic root is normal. Systemic Veins: The inferior vena cava appears normal in size. In comparison to the previous echocardiogram(s): Compared with study dated 12/31/2016,. Moderately enlarged RV; aortic valve sclerosis; mildly elevated RVSP noted on today's study. CONCLUSIONS: 1. Left ventricular ejection fraction is normal, calculated by Lucas's biplane at 63%. 2. Spectral Doppler shows a Grade I (impaired relaxation pattern) of left ventricular diastolic filling with normal left atrial filling pressure. 3. There is normal right ventricular global systolic function. 4. Moderately enlarged right ventricle. 5. Mild to moderate tricuspid regurgitation visualized. 6. Aortic valve sclerosis. 7. Mildly elevated right ventricular systolic pressure. QUANTITATIVE DATA SUMMARY: 2D MEASUREMENTS: Normal Ranges: Ao Root d: 1.70 cm (2.0-3.7cm) IVSd: 0.90 cm (0.6-1.1cm) LVPWd: 0.80 cm (0.6-1.1cm) LVIDd: 5.00 cm (3.9-5.9cm) LVIDs: 2.80 cm LV Mass Index: 70 g/m2 LVEDV Index: 44 ml/m2 LV % FS 44.0 % LA VOLUME: Normal Ranges: LA Vol A4C: 55.2 ml (22+/-6mL/m2) LA Vol A2C: 59.3 ml LA Vol BP: 57.3 ml LA Vol Index A4C: 26.4ml/m2 LA Vol Index A2C: 28.4 ml/m2 LA Vol Index BP: 27.4 ml/m2 LA Area A4C: 20.4 cm2 LA Area A2C: 21.1 cm2 LA Major [place] A4C: 6.4 cm LA Major [place] A2C: 6.4 cm RA VOLUME BY A/L METHOD: Normal Ranges: RA Vol A4C: 58.2 ml RA Area A4C: 18.9 cm2 AORTA MEASUREMENTS: Normal Ranges: Asc Ao, d: 1.80 cm (2.1-3.4cm) LV SYSTOLIC FUNCTION BY 2D PLANIMETRY (MOD): Normal Ranges: EF-A4C View: 68 % (>=55%) EF-A2C View: 59 % EF-Biplane: 63 % LV EF Reported: 63 % LV DIASTOLIC FUNCTION: Normal Ranges: M (more content not included)... Isi Blue MD - 01/27/2024 [facility] [address] [facility] [facility], [address], [place] [address] TRANSTHORACIC ECHOCARDIOGRAM REPORT Patient Name: SIA ABDUL Reading Physician: Ramón Goodman MD Study Date: 01/27/2024 Ordering Provider: Ramón GOODMAN MRN/PID: [id number] Fellow: Nurse: Date of /Age: 406/30/1980 [employer] Crosscutter: Rafia john RDCS Gender assigned at Additional Staff: : Height: 142.24 cm Admit Date: Weight: 133.36 kg Admission Status: Outpatient BSA / BMI: 2.09 m2 / 65.91 kg/m2 Blood Pressure: 109/74 mmHg Department Location: Study Type: TRANSTHORACIC ECHO (TTE) COMPLETE Diagnosis/ICD: Other forms of dyspnea-R06.09; Localized edema-R60.0 Indication: MARINO, Edema CPT Code: Echo Complete w Full Doppler-[id number] Study Detail: The following Echo studies were performed: 2D, M-Mode, Doppler and color flow. PHYSICIAN INTERPRETATION: Left Ventricle: Left ventricular ejection fraction is normal, calculated by Lucas's biplane at 63%. There are no regional left ventricular wall motion abnormalities. The left ventricular cavity size is normal. There is normal septal and normal posterior left ventricular wall thickness. Spectral Doppler shows a Grade I (impaired relaxation pattern) of left ventricular diastolic filling with normal left atrial filling pressure. Left Atrium: The left atrium is normal in size. Right Ventricle: The right ventricle is moderately enlarged. There is normal right ventricular global systolic function. Right Atrium: The right atrium is mildly dilated. Aortic Valve: The aortic valve is trileaflet. There is mild aortic valve cusp calcification. There is evidence of mildly elevated transaortic gradients consistent with sclerosis of the aortic valve. There are increased aortic valve velocities due to increased flow/dynamic ejection. The aortic valve dimensionless index is 0.69. There is no evidence of aortic valve regurgitation. The peak instantaneous gradient of the aortic valve is 18 mmHg. The mean gradient of the aortic valve is 9 mmHg. Mitral Valve: The mitral valve is normal in structure. There is trace mitral valve regurgitation. Tricuspid Valve: The tricuspid valve is structurally normal. There is mild to moderate tricuspid regurgitation. The Doppler estimated RVSP is mildly elevated at 41.0 mmHg. Pulmonic Valve: The pulmonic valve is not well visualized. The pulmonic valve regurgitation was not well visualized. Pericardium: There is no pericardial effusion noted. Aorta: The aortic root is normal. Systemic Veins: The inferior vena cava appears normal in size. In comparison to the previous echocardiogram(s): Compared with study dated 12/31/2016,. Moderately enlarged RV; aortic valve sclerosis; mildly elevated RVSP noted on today's study. CONCLUSIONS: 1. Left ventricular ejection fraction is normal, calculated by Lucas's biplane at 63%. 2. Spectral Doppler shows a Grade I (impaired relaxation pattern) of left ventricular diastolic filling with normal left atrial filling pressure. 3. There is normal right ventricular global systolic function. 4. Moderately enlarged right ventricle. 5. Mild to moderate tricuspid regurgitation visualized. 6. Aortic valve sclerosis. 7. Mildly elevated right ventricular systolic pressure. QUANTITATIVE DATA SUMMARY: 2D MEASUREMENTS: Normal Ranges: Ao Root d: 1.70 cm (2.0-3.7cm) IVSd: 0.90 cm (0.6-1.1cm) LVPWd: 0.80 cm (0.6-1.1cm) LVIDd: 5.00 cm (3.9-5.9cm) LVIDs: 2.80 cm LV Mass Index: 70 g/m2 LVEDV Index: 44 ml/m2 LV % FS 44.0 % LA VOLUME: Normal Ranges: LA Vol A4C: 55.2 ml (22+/-6mL/m2) LA Vol A2C: 59.3 ml LA Vol BP: 57.3 ml LA Vol Index A4C: 26.4ml/m2 LA Vol Index A2C: 28.4 ml/m2 LA Vol Index BP: 27.4 ml/m2 LA Area A4C: 20.4 cm2 LA Area A2C: 21.1 cm2 LA Major [place] A4C: 6.4 cm LA Major [place] A2C: 6.4 cm RA VOLUME BY A/L METHOD: Normal Ranges: RA Vol A4C: 58.2 ml RA Area A4C: 18.9 cm2 AORTA MEASUREMENTS: Normal Ranges: Asc Ao, d: 1.80 cm (2.1-3.4cm) LV SYSTOLIC FUNCTION BY 2D PLANIMETRY (MOD): Normal Ranges: EF-A4C View: 68 % (>=55%) EF-A2C View: 59 % EF-Biplane: 63 % LV EF Reported: 63 % LV DIASTOLIC FUNCTION: Normal Ranges: MV Peak E: 0.72 m/s (0.7-1.2 m/s) MV Peak A: 0.81 m/s (0.42-0.7 m/s) E/A Ratio: 0.89 (1.0-2.2) MV e' 0.150 m/s (>8.0) MV lateral e' 0.18 m/s MV medial e' 0.12 m/s MV A Dur: 124.00 msec E/e' Ratio: 4.84 (<8.0) PulmV A Revs Dur: 108.00 msec MITRAL VALVE: Normal Ranges: MV DT: 307 msec (150-240msec) AORTIC VALVE: Normal Ranges: AoV Vmax: 2.10 m/s (<=1.7m/s) AoV Peak P.6 mmHg (<20mmHg) AoV Mean P.0 mmHg (1.7-11.5mmHg) LVOT Max Everardo: 1.53 m/s (<=1.1m/s) AoV VTI: 45.10 cm (18-25cm) LVOT VTI: 31.00 cm LVOT Diameter: 1.70 cm (1.8- (more content not included)... [facility] Work Phone: [facility] Work Phone: Basic Metabolic Profile (BMP )on 01-26-2024 BUN/CRE 41.1 RATIO High 10-20 [facility] Comment on above: Performed By: #### L 500.2500 ####[facility] [address] [place], [address] CA,Total 9.0 mg/dL Normal 8.5-10.1 [facility] Comment on above: Performed By: #### L 500.2500 ####[facility] [address] [place], [address] Chloride [Moles/Vol] 103 mmol/L Normal 98-107 [facility] Comment on above: Performed By: #### L 500.2500 ####[facility] [address] [place], [address] CO2 [Moles/Vol] 33.0 mmol/L High 21.0-32.0 [facility] Comment on above: Performed By: #### L 500.2500 ####[facility] [address] [place], [address] Creatinine [Mass/Vol] 0.61 mg/dL Normal 0.55-1.02 [facility] Comment on above: Result Comment: The validity of the calculated GFR GFRAA in patients over70 years has not been determined. Clinical correlation isessential. Performed By: #### L 500.2500 ####[facility] [address] [place], [address] ECRCL 158.99 ml/min Normal [facility] Comment on above: Performed By: #### L 500.2500 ####[facility] [address] [place], [address] EST GFR - AA 139 mL/min Normal >60 [facility] Comment on above: Result Comment: Afri can [place] GFR Calc Performed By: #### L 500.2500 ####[facility] [address] [place], [address] GAP 0 Low 5-15 [facility] Comment on above: Performed By: #### L 500.2500 ####[facility] [address] [place], [address] GFR/1.73 sq M.predicted among non-blacks MDRD (S/P/Bld) [Vol rate/Area] 115 mL/min/{1.73_m2} Normal >60 [facility] Comment on above: Result Comment: Non- GFR Calc Performed By: #### L 500.2500 ####[facility] [address] [place], [address] Glucose [Mass/Vol] 92 mg/dL Normal 74-106 [facility] Comment on above: Performed By: #### L 500.2500 ####[facility] [address] [place], [address] Potassium [Moles/Vol] 4.4 mmol/L Normal 3.5-5.1 [facility] Comment on above: Performed By: #### L 500.2500 ####[facility] [address] [place], [address] Sodium [Moles/Vol] 136 mmol/L Normal 136-145 [facility] Comment on above: Performed By: #### L 500.2500 ####[facility] [address] [place], [address] Urea nitrogen [Mass/Vol] 25 mg/dL High 7-18 [facility] Comment on above: Performed By: #### L 500.2500 ####[facility] [address] [place], [address] Basic Metabolic Profile (BMP )on 01-25-2024 BUN/CRE 37.3 RATIO High 10-20 [facility] Comment on above: Performed By: #### L 500.2500 ####[facility] [address] [place], [address] CA,Total 8.5 mg/dL Normal 8.5-10.1 [facility] Comment on above: Performed By: #### L 500.2500 ####[facility] [address] [place], [address] Chloride [Moles/Vol] 103 mmol/L Normal 98-107 [facility] Comment on above: Performed By: #### L 500.2500 ####[facility] [address] [place], [address] CO2 [Moles/Vol] 33.0 mmol/L High 21.0-32.0 [facility] Comment on above: Performed By: #### L 500.2500 ####[facility] [address] [place], [address] Creatinine [Mass/Vol] 0.64 mg/dL Normal 0.55-1.02 [facility] Comment on above: Result Comment: The validity of the calculated GFR GFRAA in patients over70 years has not been determined. Clinical correlation isessential. Performed By: #### L 500.2500 ####[facility] [address] [place], [address] ECRCL 151.75 ml/min Normal [facility] Comment on above: Performed By: #### L 500.2500 ####[facility] [address] [place], [address] EST GFR - AA 130 mL/min Normal >60 [facility] Comment on above: Result Comment: Afri can [place] GFR Calc Performed By: #### L 500.2500 ####[facility] [address] [place], [address] GAP 2 Low 5-15 [facility] Comment on above: Performed By: #### L 500.2500 ####[facility] [address] [place], [address] GFR/1.73 sq M.predicted among non-blacks MDRD (S/P/Bld) [Vol rate/Area] 108 mL/min/{1.73_m2} Normal >60 [facility] Comment on above: Result Comment: Non- GFR Calc Performed By: #### L 500.2500 ####[facility] [address] [place], [address] Glucose [Mass/Vol] 113 mg/dL High 74-106 [facility] Comment on above: Result Comment: Fast ing Glucose result from 100 to 125 mg/dLsuggests IMPAIRED HOMEOSTASIS per A.D.A. criteria. Performed By: #### L 500.2500 ####[facility] [address] [place], [address] Potassium [Moles/Vol] 4.2 mmol/L Normal 3.5-5.1 [facility] Comment on above: Performed By: #### L 500.2500 ####[facility] [address] [place], [address] Sodium [Moles/Vol] 139 mmol/L Normal 136-145 [facility] Comment on above: Performed By: #### L 500.2500 ####[facility] [address] [place], [address] Urea nitrogen [Mass/Vol] 24 mg/dL High 7-18 [facility] Comment on above: Performed By: #### L 500.2500 ####[facility] [address] [place], [address] Discharge Instructionon 01-08 Discharge Instruction Normal [facility] BNP,B-Type NATRIURETIC PEPTI Christa 01-23-2024 Natriuretic peptide B (Bld) [Mass/Vol] 38.5 pg/mL Normal 0-100 [facility] Comment on above: Performed By: #### L 100.0100, L503.6620, L501.5200, L500.2500, L501.4020 ####[facility] [address] [place], [address] Basic Metabolic Profile (BMP )on 01-23-2024 BUN/CRE 39.8 RATIO High 10-20 [facility] Comment on above: Order Comment: 'TROP ' Serial specimen #1, #2 or #3: 1 Performed By: #### L 100.0100, L503.6620, L501.5200, L500.2500, L501.4020 ####[facility] [address] [place], [address] CA,Total 8.9 mg/dL Normal 8.5-10.1 [facility] Comment on above: Order Comment: 'TROP ' Serial specimen #1, #2 or #3: 1 Performed By: #### L 100.0100, L503.6620, L501.5200, L500.2500, L501.4020 ####[facility] [address] [place], [address] Chloride [Moles/Vol] 100 mmol/L Normal 98-107 [facility] Comment on above: Order Comment: 'TROP ' Serial specimen #1, #2 or #3: 1 Performed By: #### L 100.0100, L503.6620, L501.5200, L500.2500, L501.4020 ####[facility] [address] [place], [address] CO2 [Moles/Vol] 34.0 mmol/L High 21.0-32.0 [facility] Comment on above: Order Comment: 'TROP ' Serial specimen #1, #2 or #3: 1 Performed By: #### L 100.0100, L503.6620, L501.5200, L500.2500, L501.4020 ####[facility] [address] [place], [address] Creatinine [Mass/Vol] 0.73 mg/dL Normal 0.55-1.02 [facility] Comment on above: Order Comment: 'TROP ' Serial specimen #1, #2 or #3: 1 Result Comment: The validity of the calculated GFR GFRAA in patients over70 years has not been determined. Clinical correlation isessential. Performed By: #### L 100.0100, L503.6620, L501.5200, L500.2500, L501.4020 ####[facility] [address] [place], [address] ECRCL 129.52 ml/min Normal [facility] Comment on above: Order Comment: 'TROP ' Serial specimen #1, #2 or #3: 1 Performed By: #### L 100.0100, L503.6620, L501.5200, L500.2500, L501.4020 ####[facility] [address] [place], [address] EST GFR - AA 113 mL/min Normal >60 [facility] Comment on above: Order Comment: 'TROP ' Serial specimen #1, #2 or #3: 1 Result Comment: Afri can [place] GFR Calc Performed By: #### L 100.0100, L503.6620, L501.5200, L500.2500, L501.4020 ####[facility] [address] [place], [address] GAP 3 Low 5-15 [facility] Comment on above: Order Comment: 'TROP ' Serial specimen #1, #2 or #3: 1 Performed By: #### L 100.0100, L503.6620, L501.5200, L500.2500, L501.4020 ####[facility] [address] [place], [address] GFR/1.73 sq M.predicted among non-blacks MDRD (S/P/Bld) [Vol rate/Area] 93 mL/min/{1.73_m2} Normal >60 [facility] Comment on above: Order Comment: 'TROP ' Serial specimen #1, #2 or #3: 1 Result Comment: Non- GFR Calc Performed By: #### L 100.0100, L503.6620, L501.5200, L500.2500, L501.4020 ####[facility] [address] [place], [address] Glucose [Mass/Vol] 78 mg/dL Normal 74-106 [facility] Comment on above: Order Comment: 'TROP ' Serial specimen #1, #2 or #3: 1 Performed By: #### L 100.0100, L503.6620, L501.5200, L500.2500, L501.4020 ####[facility] [address] [place], [address] Potassium [Moles/Vol] 4.2 mmol/L Normal 3.5-5.1 [facility] Comment on above: Order Comment: 'TROP ' Serial specimen #1, #2 or #3: 1 Performed By: #### L 100.0100, L503.6620, L501.5200, L500.2500, L501.4020 ####[facility] [address] [place], [address] Sodium [Moles/Vol] 137 mmol/L Normal 136-145 [facility] Comment on above: Order Comment: 'TROP ' Serial specimen #1, #2 or #3: 1 Performed By: #### L 100.0100, L503.6620, L501.5200, L500.2500, L501.4020 ####[facility] [address] [place], [address] Urea nitrogen [Mass/Vol] 29 mg/dL High 7-18 [facility] Comment on above: Order Comment: 'TROP ' Serial specimen #1, #2 or #3: 1 Performed By: #### L 100.0100, L503.6620, L501.5200, L500.2500, L501.4020 ####[facility] [address] [place], [address] CBC W/Diff, Automatedon 11- Absolute Lymph 2.61 X10 3/uL Normal 0.83-4.51 [facility] Comment on above: Performed By: #### L 100.0100, L500.4050 ####[facility] [address] [place], [address] Absolute Neut 8.4 X10 3/uL High 2.0-7.7 [facility] Comment on above: Performed By: #### L 100.0100, L500.4050 ####[facility] [address] [place], [address] Basophils/100 WBC (Bld) 0.5 % Normal 0-1 [facility] Comment on above: Performed By: #### L 100.0100, L500.4050 ####[facility] [address] [place], [address] Eosinophils/100 WBC (Bld) 4.7 % Normal 0-5 [facility] Comment on above: Performed By: #### L 100.0100, L500.4050 ####[facility] [address] [place], [address] Erythrocyte distribution width (RBC) [Ratio] 13.2 % Normal 11.6-14.6 [facility] Comment on above: Performed By: #### L 100.0100, L500.4050 ####[facility] [address] [place], [address] Hematocrit (Bld) [Volume fraction] 34.9 % Low 37-47 [facility] Comment on above: Performed By: #### L 100.0100, L500.4050 ####[facility] [address] [place], [address] Hemoglobin (Bld) [Mass/Vol] 11.0 g/dL Low 12.0-15.0 [facility] Comment on above: Performed By: #### L 100.0100, L500.4050 ####[facility] [address] [place], [address] IG% 0.600 Normal 0.0-0.9 [facility] Comment on above: Result Comment: IG% - Immature Granulocytes (promyelocytes, myelocytes andmetamyelocytes) > 1% indicates that a LEFT SHIFT is Present. Performed By: #### L 100.0100, L500.4050 ####[facility] [address] [place], [address] Lymphocytes/100 WBC (Bld) 20.2 % Normal 19-41 [facility] Comment on above: Performed By: #### L 100.0100, L500.4050 ####[facility] [address] [place], [address] MCH (RBC) [Entitic mass] 32.0 pg Normal 27.0-32.0 [facility] Comment on above: Performed By: #### L 100.0100, L500.4050 ####[facility] [address] [place], [address] MCHC (RBC) [Mass/Vol] 31.5 g/dL Low 32-36 [facility] Comment on above: Performed By: #### L 100.0100, L500.4050 ####[facility] [address] [place], [address] MCV (RBC) [Entitic vol] 101.5 fL High 81-99 [facility] Comment on above: Performed By: #### L 100.0100, L500.4050 ####[facility] [address] [place], [address] Monocytes/100 WBC (Bld) 9.1 % Normal 0-10 [facility] Comment on above: Performed By: #### L 100.0100, L500.4050 ####[facility] [address] [place], [address] Neutrophils/100 WBC (Bld) 64.9 % Normal 47-70 [facility] Comment on above: Performed By: #### L 100.0100, L500.4050 ####[facility] [address] [place], [address] Nucleated RBC (Bld) [#/Vol] 0 10*3/uL Normal 0-5 [facility] Comment on above: Performed By: #### L 100.0100, L500.4050 ####[facility] [address] [place], [address] Platelet mean volume (Bld) [Entitic vol] 11.4 fL Normal 6.2-12.0 [facility] Comment on above: Performed By: #### L 100.0100, L500.4050 ####[facility] [address] [place], [address] Platelets (Bld) [#/Vol] 156 10*3/uL Normal 150-450 [facility] Comment on above: Performed By: #### L 100.0100, L500.4050 ####[facility] [address] [place], [address] RBC (Bld) [#/Vol] 3.44 10*6/uL Low 4.2-5.4 [facility] Comment on above: Performed By: #### L 100.0100, L500.4050 ####[facility] [address] [place], [address] RDW SD 49.1 fl High 35.1-43.9 [facility] Comment on above: Performed By: #### L 100.0100, L500.4050 ####[facility] [address] [place], [address] WBC (Bld) [#/Vol] 12.9 10*3/uL High 4.4-11.0 [facility] Comment on above: Performed By: #### L 100.0100, L500.4050 ####[facility] [address] [place], [address] Absolute Lymph 2.83 X10 3/uL Normal 0.83-4.51 [facility] Comment on above: Performed By: #### L 100.0100, L503.6620, L501.5200, L500.2500, L501.4020 ####[facility] [address] [place], [address] Absolute Neut 9.1 X10 3/uL High 2.0-7.7 [facility] Comment on above: Performed By: #### L 100.0100, L503.6620, L501.5200, L500.2500, L501.4020 ####[facility] [address] [place], [address] Basophils/100 WBC (Bld) 0.6 % Normal 0-1 [facility] Comment on above: Performed By: #### L 100.0100, L503.6620, L501.5200, L500.2500, L501.4020 ####[facility] [address] [place], [address] Eosinophils/100 WBC (Bld) 4.9 % Normal 0-5 [facility] Comment on above: Performed By: #### L 100.0100, L503.6620, L501.5200, L500.2500, L501.4020 ####[facility] [address] [place], [address] Erythrocyte distribution width (RBC) [Ratio] 13.2 % Normal 11.6-14.6 [facility] Comment on above: Performed By: #### L 100.0100, L503.6620, L501.5200, L500.2500, L501.4020 ####[facility] [address] [place], [address] Hematocrit (Bld) [Volume fraction] 37.6 % Normal 37-47 [facility] Comment on above: Performed By: #### L 100.0100, L503.6620, L501.5200, L500.2500, L501.4020 ####[facility] [address] [place], [address] Hemoglobin (Bld) [Mass/Vol] 12.0 g/dL Normal 12.0-15.0 [facility] Comment on above: Performed By: #### L 100.0100, L503.6620, L501.5200, L500.2500, L501.4020 ####[facility] [address] [place], [address] IG% 0.900 Normal 0.0-0.9 [facility] Comment on above: Result Comment: IG% - Immature Granulocytes (promyelocytes, myelocytes andmetamyelocytes) > 1% indicates that a LEFT SHIFT is Present. Performed By: #### L 100.0100, L503.6620, L501.5200, L500.2500, L501.4020 ####[facility] [address] [place], [address] Lymphocytes/100 WBC (Bld) 20.1 % Normal 19-41 [facility] Comment on above: Performed By: #### L 100.0100, L503.6620, L501.5200, L500.2500, L501.4020 ####[facility] [address] [place], [address] MCH (RBC) [Entitic mass] 32.4 pg High 27.0-32.0 [facility] Comment on above: Performed By: #### L 100.0100, L503.6620, L501.5200, L500.2500, L501.4020 ####[facility] [address] [place], [address] MCHC (RBC) [Mass/Vol] 31.9 g/dL Low 32-36 [facility] Comment on above: Performed By: #### L 100.0100, L503.6620, L501.5200, L500.2500, L501.4020 ####[facility] [address] [place], [address] MCV (RBC) [Entitic vol] 101.6 fL High 81-99 [facility] Comment on above: Performed By: #### L 100.0100, L503.6620, L501.5200, L500.2500, L501.4020 ####[facility] [address] [place], [address] Monocytes/100 WBC (Bld) 9.0 % Normal 0-10 [facility] Comment on above: Performed By: #### L 100.0100, L503.6620, L501.5200, L500.2500, L501.4020 ####[facility] [address] [place], [address] Neutrophils/100 WBC (Bld) 64.5 % Normal 47-70 [facility] Comment on above: Performed By: #### L 100.0100, L503.6620, L501.5200, L500.2500, L501.4020 ####[facility] [address] [place], [address] Nucleated RBC (Bld) [#/Vol] 0 10*3/uL Normal 0-5 [facility] Comment on above: Performed By: #### L 100.0100, L503.6620, L501.5200, L500.2500, L501.4020 ####[facility] [address] [place], [address] Platelet mean volume (Bld) [Entitic vol] 11.1 fL Normal 6.2-12.0 [facility] Comment on above: Performed By: #### L 100.0100, L503.6620, L501.5200, L500.2500, L501.4020 ####[facility] [address] [place], [address] Platelets (Bld) [#/Vol] 172 10*3/uL Normal 150-450 [facility] Comment on above: Performed By: #### L 100.0100, L503.6620, L501.5200, L500.2500, L501.4020 ####[facility] [address] [place], [address] RBC (Bld) [#/Vol] 3.70 10*6/uL Low 4.2-5.4 [facility] Comment on above: Performed By: #### L 100.0100, L503.6620, L501.5200, L500.2500, L501.4020 ####[facility] [address] [place], [address] RDW SD 49.0 fl High 35.1-43.9 [facility] Comment on above: Performed By: #### L 100.0100, L503.6620, L501.5200, L500.2500, L501.4020 ####[facility] [address] [place], [address] WBC (Bld) [#/Vol] 14.1 10*3/uL High 4.4-11.0 [facility] Comment on above: Performed By: #### L 100.0100, L503.6620, L501.5200, L500.2500, L501.4020 ####[facility] [address] [place], [address] Tal 01-23-2024 LOU Telephone ([facility]) SIA ABDUL ([id number]) 1980 F Date Time Provider Department 01/23/24 MIKA KAPLAN During your visit today, we recorded the following information about you: Candelaria Ball LPN 01/23/2024 10:34 AM Signed Clarence from [facility] calling patient Cariologist took her off the bumex and furosemide and put her on torsemide 20 mg twice daily. Last night her weight was 297.6 pounds. Patient is admitted to [facility] today with CHF. Mika Kaplan APRN.CNP 01/23/2024 12:16 PM Signed Noted. Will need hospital follow up once discharged. Mika Kaplan APRN.CNP Allergies As of Date: 01/23/2024 Noted Allergy Reaction BEE STING 02/28/2023 10 - Anaphylaxis DILANTIN (PHENYTOIN SODIUM EXTEND*01/28/2006 Date Reviewed: 01/12/2024 Reviewed by: Aaliyah Gonzalez MA - Fully Assessed Reason for Visit: Patient Update [1234] Prescriptions as of 01/23/2024 - torsemide (DEMADEX) 20 mg tablet Take 1 tablet by mouth two times a day. - bumetanide (BUMEX) 1 mg tablet Take 1 tablet by mouth once daily for 10 days. - furosemide (LASIX) 40 mg tablet Take 1 tablet by mouth two times a day. - carvedilol (COREG) 3.125 mg tablet Take 1 tablet by mouth two times a day. - lisinopril (ZESTRIL) 5 mg tablet Take 1 tablet by mouth [...] COMPRESSION) misc 1 Each once daily. - multivitamin-ferrous fumarate-folic acid (CERTAVITE-ANTIOXIDANT ) Take 1 tablet by mouth once daily. - fluticasone (FLONASE) 50 mcg/actuation nasal spray INSTILL 2 SPRAYS IN EACH NOSTRIL DAILY - Frmfo-8-DZH-EPA-Fish Oil 1,000 mg (120 mg-180 mg) cap [...] 4pm Dx:Q87.1 Problem List As Of Date 01/23/2024 Noted Resolved Other malaise and fatigue [R53.81, [...] (HCC) [Z68.43] 10/11/2013 12/14/2014 Venous insufficiency (chronic) (per (more content not included)... Normal [facility] Metabolic Prof nahid 01-23-2024 Albumin [Mass/Vol] 3.0 g/dL Low 3.2-5.0 [facility] Comment on above: Performed By: #### L 100.0100, L500.4050 ####[facility] [address] [place], [place], [address] Albumin/Globulin [Mass ratio] 0.9 {ratio} Normal 0.9-2.4 [facility] Comment on above: Performed By: #### L 100.0100, L500.4050 ####[facility] [address] [place], [address] ALK P 76 U/L Normal 45-117 [facility] Comment on above: Performed By: #### L 100.0100, L500.4050 ####[facility] [address] [place], [address] ALT [Catalytic activity/Vol] 20 U/L Normal 13-56 [facility] Comment on above: Performed By: #### L 100.0100, L500.4050 ####[facility] [address] [place], [address] AST [Catalytic activity/Vol] 12 U/L Low 15-37 [facility] Comment on above: Performed By: #### L 100.0100, L500.4050 ####[facility] [address] [place], [address] Bilirubin [Mass/Vol] 0.50 mg/dL Normal 0.20-1.00 [facility] Comment on above: Result Comment: For patients on eltrombopag therapy, use of Dimension [place] TBIL is not recommended. Performed By: #### L 100.0100, L500.4050 ####[facility] [address] [place], [address] BUN/CRE 42.2 RATIO High 10-20 [facility] Comment on above: Performed By: #### L 100.0100, L500.4050 ####[facility] [address] [place], [address] CA,Total 8.6 mg/dL Normal 8.5-10.1 [facility] Comment on above: Performed By: #### L 100.0100, L500.4050 ####[facility] [address] [place], [address] Chloride [Moles/Vol] 101 mmol/L Normal 98-107 [facility] Comment on above: Performed By: #### L 100.0100, L500.4050 ####[facility] [address] [place], [address] CO2 [Moles/Vol] 35.0 mmol/L High 21.0-32.0 [facility] Comment on above: Performed By: #### L 100.0100, L500.4050 ####[facility] [address] [place], [address] Creatinine [Mass/Vol] 0.69 mg/dL Normal 0.55-1.02 [facility] Comment on above: Result Comment: The validity of the calculated GFR GFRAA in patients over70 years has not been determined. Clinical correlation isessential. Performed By: #### L 100.0100, L500.4050 ####[facility] [address] [place], [address] ECRCL 140.83 ml/min Normal [facility] Comment on above: Performed By: #### L 100.0100, L500.4050 ####[facility] [address] [place], [address] EST GFR - AA 121 mL/min Normal >60 [facility] Comment on above: Result Comment: Afri can [place] GFR Calc Performed By: #### L 100.0100, L500.4050 ####[facility] [address] [place], [address] GAP 2 Low 5-15 [facility] Comment on above: Performed By: #### L 100.0100, L500.4050 ####[facility] [address] [place], [address] GFR/1.73 sq M.predicted among non-blacks MDRD (S/P/Bld) [Vol rate/Area] 100 mL/min/{1.73_m2} Normal >60 [facility] Comment on above: Result Comment: Non- GFR Calc Performed By: #### L 100.0100, L500.4050 ####[facility] [address] [place], [address] Globulin (S) [Mass/Vol] 3.3 g/dL Normal 2.2-4.2 [facility] Comment on above: Performed By: #### L 100.0100, L500.4050 ####[facility] [address] [place], [address] Glucose [Mass/Vol] 89 mg/dL Normal 74-106 [facility] Comment on above: Performed By: #### L 100.0100, L500.4050 ####[facility] [address] [place], [address] Potassium [Moles/Vol] 4.1 mmol/L Normal 3.5-5.1 [facility] Comment on above: Performed By: #### L 100.0100, L500.4050 ####[facility] [address] [place], [address] Sodium [Moles/Vol] 138 mmol/L Normal 136-145 [facility] Comment on above: Performed By: #### L 100.0100, L500.4050 ####[facility] [address] [place], [address] T PROT 6.3 g/dL Low 6.4-8.2 [facility] Comment on above: Performed By: #### L 100.0100, L500.4050 ####[facility] [address] [place], [address] Urea nitrogen [Mass/Vol] 29 mg/dL High 7-18 [facility] Comment on above: Performed By: #### L 100.0100, L500.4050 ####[facility] [address] [place], [address] H AND P Exam - [facility] 11-15-2024 H&P Exam - Hospitalist Normal [facility] L501.4020on 01-23-2024 TROPONIN-I HS 10 pg/mL Normal 3.0-54.0 [facility] Comment on above: Order Comment: 'TROP ' Serial specimen #1, #2 or #3: 1 Result Comment: Donald mcdonnell Note: New Test Units and Gender Specific Reference Ranges. For more information see Policy Stat Procedure [place] High Sensitivity Troponin (TNIH) and attachments. Performed By: #### L 100.0100, L503.6620, L501.5200, L500.2500, L501.4020 ####[facility] [address] [place], [address] Magnesiumon 01-23-2024 Magnesium [Mass/Vol] 2.4 mg/dL Normal 1.6-2.6 [facility] Comment on above: Order Comment: 'TROP ' Serial specimen #1, #2 or #3: 1 Performed By: #### L 100.0100, L503.6620, L501.5200, L500.2500, L501.4020 ####[facility] [address] [place], [address] Urinalysis, Completeon 01-22 RBC 0-5 SEEN Normal 0-5 [facility] Comment on above: Order Comment: CLEAN CATCH Performed By: #### L 400.0001 ####[facility] [address] [place], [address] BACTERIA 0 SEEN Normal None Seen [facility] Comment on above: Order Comment: CLEAN CATCH Performed By: #### L 400.0001 ####[facility] [address] [place], [address] EPI,SQUAMOUS 0 SEEN Normal 5-10 [facility] Comment on above: Order Comment: CLEAN CATCH Performed By: #### L 400.0001 ####[facility] [address] [place], [address] Mucus Ql (Urine sed) 0 SEEN Normal [facility] Comment on above: Order Comment: CLEAN CATCH Performed By: #### L 400.0001 ####[facility] [address] [place], [address] WBC 0 SEEN Normal 0-5 [facility] Comment on above: Order Comment: CLEAN CATCH Performed By: #### L 400.0001 ####[facility] [address] [place], [address] 12 Lead EKGon 01-22-2024 12 Lead EKG Normal [facility] CNPNon 01-22-2024 CNPN Telephone ([facility]) SIA ABDUL ([id number]) 1980 F Date Time Provider Department 01/22/24 MARILEE THAKUR IN[facility] During your visit today, we recorded the following information about you: Kristine Hayes, RN 01/22/2024 2:42 PM Signed Clarence Calderon nurse with [facility] calling to see if he can get an order from provider's office for PT/OT for pt. 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 Having trouble getting on and off the bus to go to [employer]. Hoping to get PT/OT to evaluate and treat. No need to call Clarence back. If okay, please fax orders to [phone] [facility]. Mika Kaplan APRN.CNP 01/22/2024 3:15 PM Signed Agree with need for PT/OT and agree to follow. Thank you CLIF Mccain Joy, APRN.CNP 01/23/2024 7:22 AM Signed Patient currently admitted to hospital with CHF. Will need orders once discharged. 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 - bumetanide (BUMEX) 1 mg tablet Take 1 tablet by mouth once daily for 10 days. - furosemide (LASIX) 40 mg tablet Take 1 tablet by mouth two times a day. - carvedilol (COREG) 3.125 mg tablet Take 1 tablet by mouth two times a day. - lisinopril (ZESTRIL) 5 mg tablet Take 1 tablet by mouth [...] COMPRESSION) misc 1 Each once daily. - multivitamin-ferrous fumarate-folic acid (CERTAVITE-ANTIOXIDANT ) Take 1 tablet by mouth once daily. 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 Normal [facility] Chest 1 View (Portable)on Chest 1 View (Portable) Normal [facility] Emergency Department Summary on 01-22-2024 Emergency Department Summary Normal [facility] Comprehensive metabolic 2000 panelon 01-20-2024 Albumin BCP dye [Mass/Vol] 3.9 g/dL Normal 3.4-5.0 [facility] Comment on above: Performed By: #### 2 4323-8 #### ENEDINA Campbell ([id number]) [facility] ([facility]) [address] [place] [address] ALP [Catalytic activity/Vol] 81 U/L Normal 33-110 [facility] Comment on above: Performed By: #### 2 4323-8 #### ENEDINA Campbell ([id number]) [facility] ([facility]) [address] [place] [address] ALT With P-5'-P [Catalytic activity/Vol] 15 U/L Normal 7-45 [facility] Comment on above: Result Comment: Isabella ents treated with Sulfasalazine may generate falsely decreased results for ALT. Performed By: #### 2 4323-8 #### ENEDINA Campbell ([id number]) [facility] ([facility]) [address] [place] [address] Anion gap [Moles/Vol] 9 mmol/L Low 10-20 [facility] Comment on above: Performed By: #### 2 4323-8 #### ENEDINA Campbell ([id number]) [facility] ([facility]) [address] [place] [address] AST With P-5'-P [Catalytic activity/Vol] 14 U/L Normal 9-39 [facility] Comment on above: Performed By: #### 2 4323-8 #### ENEDINA Campbell ([id number]) [facility] ([facility]) [address] [place] [address] Bilirubin [Mass/Vol] 0.3 mg/dL Normal 0.0-1.2 [facility] Comment on above: Performed By: #### 2 4323-8 #### ENEDINA ALVAREZ L ([id number]) [facility] ([facility]) [id number] [place] [address] Calcium [Mass/Vol] 9.0 mg/dL Normal 8.6-10.6 [facility] Comment on above: Performed By: #### 2 4323-8 #### ENEDINA SEAMANER L ([id number]) [facility] ([facility]) [id number] [place] [address] Chloride [Moles/Vol] 103 mmol/L Normal 98-107 [facility] Comment on above: Performed By: #### 2 4323-8 #### ENEDINA ALVAREZ L ([id number]) [facility] ([facility]) [id number] [place] [address] CO2 [Moles/Vol] 35 mmol/L High 21-32 [facility] Comment on above: Performed By: #### 2 4323-8 #### ENEDINA ALVAREZ L ([id number]) [facility] ([facility]) [id number] [place] [address] Creatinine [Mass/Vol] 0.74 mg/dL Normal 0.50-1.05 [facility] Comment on above: Performed By: #### 2 4323-8 #### ENEDINA ALVAREZ L ([id number]) [facility] ([facility]) [id number] [place] [address] GFR/1.73 sq M.predicted MDRD (S/P/Bld) [Vol rate/Area] mL/min/{1.73_m2} Normal >60 [facility] Comment on above: Result Comment: Calc ulations of estimated GFR are performed using the 2020 CKD-EPI Study Refit equation without the race variable for the IDMS-Traceable creatinine methods. https://jasn.asnjournals.org/content/early/ASN.988176 5214 Performed By: #### 2 4323-8 #### ENEDINA Campbell ([id number]) [facility] ([facility]) [address] [place] [address] Glucose [Mass/Vol] 91 mg/dL Normal 74-99 [facility] Comment on above: Performed By: #### 2 4323-8 #### ENEDINA Campbell ([id number]) [facility] ([facility]) [address] [place] [address] Potassium [Moles/Vol] 5.0 mmol/L Normal 3.5-5.3 [facility] Comment on above: Performed By: #### 2 4323-8 #### ENEDINA Campbell ([id number]) [facility] ([facility]) [address] [place] [address] Protein [Mass/Vol] 6.7 g/dL Normal 6.4-8.2 [facility] Comment on above: Performed By: #### 2 4323-8 #### ENEDINA Campbell ([id number]) [facility] ([facility]) [address] [place] [address] Sodium [Moles/Vol] 142 mmol/L Normal 136-145 [facility] Comment on above: Performed By: #### 2 4323-8 #### ENEDINA Campbell ([id number]) [facility] ([facility]) [address] [place] [address] Urea nitrogen [Mass/Vol] 26 mg/dL High 6-23 [facility] Comment on above: Performed By: #### 2 4323-8 #### ENEDINA ALVAREZ L ([id number]) [facility] ([facility]) [address] [place] [address] ECG 12-LEADon 01-20-2024 ECG 12-LEAD Ventricular Rate 69 Atrial Rate 69 P-R Interval 122 QRS Duration 78 Q-T Interval 370 QTC Calculation(Bazett) 396 P Sykeston 25 R Sykeston -5 T Sykeston 0 QRS Count 12 Q Onset 214 P Onset 153 P Offset 197 T Offset 399 QTC Fredericia 387 Diagnosis Normal sinus rhythm Nonspecific T wave abnormality Abnormal ECG Confirmed by Isi Goodman ([id number]) on 01/23/2024 11:24:41 AM Normal [facility] Natriuretic peptide B [Mass/ Vol]on 01-20-2024 Natriuretic peptide B (Bld) [Mass/Vol] 83 pg/mL Normal 0-99 [facility] Comment on above: Order Comment: <100 pg/mL - Heart failure unlikely 100-299 pg/mL - Intermediate probability of acute heart failure exacerbation. Correlate with clinical context and patient history. >=300 pg/mL - Heart Failure likely. Correlate with clinical context and patient history. Biotin interference may cause falsely decreased results. Patients taking a Biotin dose of up to 5 mg/day should refrain from taking Biotin for 24 hours before sample collection. Providers may contact their local laboratory for further information. Performed By: #### 3 0934-4 #### ENEDINA Campbell ([id number]) [facility] ([facility]) [address] [place] [address] Tla 01-19-2024 [facility] Telephone ([facility]) SIA ABDUL ([id number]) 1980 F Date Time Provider Department 01/19/24 MARILEE THAKUR INTMWS During your visit today, we recorded the following information about you: Lillie Marshall RN 01/19/2024 9:00 AM Signed Shobha from [employer] calls to report that patient has had a 15 pound weight gain since Friday. Patient currently is on Bumex and Lasix. Patient has a little swelling in ankles and wrists. Patient has some swelling in Abdomen. Patient is not complaining of shortness of breath. Please review and advise, RODRÍGUEZ Carnes Chitra, MD 01/19/2024 5:35 PM Signed Stop the lasix And give her 2 mgs of bumex for the next 3 days Marilee Lassiter MD, Sherrie, RN 01/20/2024 8:42 AM Signed VM left for Shobha to call provider's office for message below. RODRÍGUEZ Blake Krystle, RN 01/20/2024 12:47 PM Signed Shobha returns call and message below reviewed. 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 Bumex and Furosemide were both stopped. Patient was placed on Demadex 20 mg twice daily for now. Shobha reports that per Dr. Goodman, patient is not absorbing the Bumex or furosemide and obesity could be a factor. RODRÍGUEZ Braden Chitra, MD 01/20/2024 6:01 PM Signed Noted Marilee Lassiter MD Allergies As of Date: 01/19/2024 Noted Allergy Reaction BEE STING 02/28/2023 10 - Anaphylaxis DILANTIN (PHENYTOIN SODIUM EXTEND*01/28/2006 Date Reviewed: 01/12/2024 Reviewed by: Aaliyah Gonzalez MA - Fully Assessed Reason for Visit: Patient Update [1234] Order(s):torsemide (DEMADEX) 20 mg tabletTake 1 tablet by mouth two times a day.Disp: Rfl: Prescriptions as of 01/21/2024 - torsemide (DEMADEX) 20 mg tablet Take 1 tablet by mouth two times a day. - bumetanide (BUMEX) 1 mg tablet Take 1 tablet by mouth once daily for 10 days. - furosemide (LASIX) 40 mg tablet Take 1 tablet by mouth two times a day. - carvedilol (COREG) 3.125 mg tablet Take 1 tablet by mouth two times a day. - lisinopril (ZESTRIL) 5 mg tablet Take 1 tablet by mouth [...] COMPRESSION) misc 1 Each once daily. - multivitamin-ferrous fumarate-folic acid (CERTAVITE-ANTIOXIDANT ) Take 1 tablet by mouth once daily. - fluticasone (FLONASE) 50 mcg/actuation nasal spray INSTILL 2 SPRAYS IN EACH NOSTRIL DAILY - Velif-8-JWE-EPA-Fish Oil 1,000 mg (120 mg-180 mg) cap [...] 4pm Dx:Q87.1 Problem List As Of Date 01/19/2024 Noted Resolved Other malaise and fatigue [R53.81, R53.83] 08/06/2005 12/13/2013 Other dyspnea and respi (more content not included)... Normal [facility] CNPNon 01-13-2024 CNPN Telephone (INTMWS) SIA ABDUL ([id number]) 1980 F Date Time Provider Department 01/13/24 MARILEE THAKUR INTMWS During your visit today, we recorded the following information about you: Candelaria Ball LPN 01/13/2024 8:12 AM Signed Clarence from [facility] calling patient weight Friday am was 274 pounds. Patient weight this morning at 745 am is 278 pounds. Patient uses [facility] for the pharmacy. Please notify Clarence with any changes and also [facility] [phone]. Please advise Marilee Thakur MD 01/13/2024 5:39 PM Signed I want to give her bumex 1 mgs daily for 5 days and recheck her labs after that. Please let me know which pharmacy to call the medications into Regards, Pamela Bush MD, LPN 01/14/2024 8:18 AM Signed Spoke with Clarence and message below given. Clarence wanted to update you with progress on pt. She has gained another 6 pounds since yesterday pt is now 284 #. [facility]. They will be starting medication tomorrow 01-15-24 and will come in on Friday01/19/24 to get lab work done. If anything else is needed please call Clarence. Clarence will be keeping you updated on pt's weight and symptoms. Pamela Singh, Mima Finnegan LPN 01/14/2024 12:00 PM [facility] as they want to start pt on it today? Order pending review. JORDAN Grissom Joy, APRN.OBED 01/14/2024 1:35 PM Signed Order sent. Please verify they are starting this today as she continues to have weight gain. Thank you Mika Kaplan APRN.Mima Ruvalcaba LPN 01/14/2024 2:19 PM Signed Shobha from [facility] notified Rx has been sent in AND to start medication today. Shobha will check with pharm AND get med from them. Mima Parson LPN Allergies As of Date: 01/13/2024 Noted Allergy Reaction BEE STING 02/28/2023 10 - Anaphylaxis DILANTIN (PHENYTOIN SODIUM EXTEND*01/28/2006 Date Reviewed: 01/12/2024 Reviewed by: Aaliyah Gonzalez MA - Fully Assessed Reason for Visit: weight increase [Other] Order(s):bumetanide (BUMEX) 1 mg tabletTake 1 tablet by mouth once daily for 10 days.Disp: 5 tabletRfl: 1 Prescriptions as of 01/14/2024 - bumetanide (BUMEX) 1 mg tablet Take 1 tablet by mouth once daily for 10 days. - furosemide (LASIX) 40 mg tablet Take 1 tablet by mouth two times a day. - carvedilol (COREG) 3.125 mg tablet Take 1 tablet by mouth two times a day. - lisinopril (ZESTRIL) 5 mg tablet Take 1 tablet by mouth [...] COMPRESSION) misc 1 Each once daily. - multivitamin-ferrous fumarate-folic acid (CERTAVITE-ANTIOXIDANT ) Take 1 tablet by mouth once daily. - fluticasone (FLONASE) 50 mcg/actuation nasal spray INSTILL 2 SPRAYS IN EACH NOSTRIL DAILY - Ducor-3-IUQ-EPA-Fish Oil 1,000 mg (120 mg-180 mg) cap [...] 20-30mmHg knee high compression stockings. Dx: Recurrent celluliti (more content not included)... Normal [facility] CNOVon 01-12-2024 CNOV Office Visit (INTMWS ) SIA ABDUL ([id number]) 1980 F Date Time Provider Department 01/12/24 9:00 AM MARILEE THAKUR INTMWS During your visit today, we recorded the following information about you: Pulse Respiration Blood pressure Weight 77/minute 16/minute 134/70 124.8 kg Marilee Thakur MD 01/12/2024 2:29 PM Signed Reason for Visit Patient presents with: Hospital F/U: And ER visit on 01/08/24 Sia Abdul is a 42 year old female [...] massagers and she is on the lasix. 01/12/2024: The patient was admitted from December 26 to January 01 for 30 pound weight gain which is thought to be from water weight gain. She was in the ICU and was diuresed her left ventricular ejection fraction was found to be 55%. The right ventricle was mildly dilated with mild global right ventricular systolic dysfunction she also had moderate tricuspid valve insufficiency which is 2+ and her pulmonary artery systolic pressure is 67 which is elevated. On review of her discharge reported says she has acute respiratory failure with hypoxia and hypercapnia. 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 CTA was done to rule out pulmonary embolism and it showed no coronary artery calcifications. No problem-specific Assessment AND Plan notes found [...] discussed today Current Outpatient Medications: potassium chloride 20 mEq TbER ammonium lactate (LAC-HYDRIN) 12 % cream nystatin (NYAMYC) powder furosemide (LASIX) 40 mg tablet carvedilol (COREG) 3.125 mg tablet lisinopril (ZESTRIL) 5 mg tablet furosemide (LASIX) 40 mg tablet Leg Brace (TRUE CMFT KNEE COMPRESSION) misc multivitamin-ferrous fumarate-folic acid (CERTAVITE-ANTIOXIDANT ) fluticasone (FLONASE) 50 mcg/actuation nasal spray Jockn-3-UCO-EPA-Fish Oil 1,000 mg (120 mg-180 mg) cap EPINEPHrine (EPIPEN) 0.3 mg/0.3 mL auto-injector levothyroxine (SYNTHROID) 100 mcg tablet DULERA 100-5 mcg/actuation inhaler OYSTER SHELL CALCIUM-VITAMIN D 500 mg-5 mcg (200 unit) per tablet clotrimazole (LOTRIMIN) 1 % cream albuterol HFA (VENTOLIN HFA) 90 mcg/actuation inhaler naproxen (NAPROSYN) 500 mg tablet acetaminophen (TYLENOL EXTRA STRENGTH) 500 mg tablet MEDICAL SUPPLY IRAIDA 0.35 mg tablet Gauze Bandage 2 X 2 bndg Desogestrel-Ethinyl Estradiol (APRI) 0.15-0.03 mg per tablet diphenhydrAMINE (BENADRYL) 25 mg tablet cetirizine (ZYRTEC) 10 mg tablet COMPOUNDED PRESCRIPTION COMPOUNDED PRESCRIPTION COMP (more content not included)... Normal [facility] 01-12-2024 [facility] SIA ABDUL ([id number]) 1980 F Date Time Provider Department 01/12/24 MARILEE THAKUR INTWS During your visit today, we recorded the following information about you: Aaliyah Gonzalez MA 01/12/2024 10:20 AM Signed Patient needs orders for Pneumatic compression, stockings, and wraps. Orders pended. Please file if agreeable. Once ordered, will need to fax orders to [facility] at [phone], ATTN Shobha/COMFORT Agrawal Joy, APRN.OBED 01/12/2024 12:10 PM Signed Orders placed. Please fax as requested Thank you Mika Kaplan APRN.Aaliyah Langford MA 01/12/2024 12:48 PM Signed Faxed as requested. Aaliyah Gonzalez MA Allergies As of Date: 01/12/2024 Noted Allergy Reaction BEE STING 02/28/2023 10 - Anaphylaxis DILANTIN (PHENYTOIN SODIUM EXTEND*01/28/2006 Date Reviewed: 01/12/2024 Reviewed by: Aaliyah Gonzalez MA - Fully Assessed Reason for Visit: Orders [681] Primary Visit Diagnosis:Lymphedema [I89.0] Other Visit Diagnoses:Acute congestive heart failure, unspecified heart failure type (HCC) [I50.9] Lymphedema of left lower extremity [I89.0] Lymphedema of right lower extremity [I89.0] Order(s):PNEUMATIC COMPRESSION DEVICE [[id number]] Order #: [id number] COMPRESSION STOCKINGS [[id number]] Order #: [id number] ELASTIC BANDAGE [[id number]] Order #: [id number] Prescriptions as of 01/12/2024 - furosemide (LASIX) 40 mg tablet Take 1 tablet by mouth two times a day. - carvedilol (COREG) 3.125 mg tablet Take 1 tablet by mouth two times a day. - lisinopril (ZESTRIL) 5 mg tablet Take 1 tablet by mouth [...] COMPRESSION) misc 1 Each once daily. - multivitamin-ferrous fumarate-folic acid (CERTAVITE-ANTIOXIDANT ) Take 1 tablet by mouth once daily. - fluticasone (FLONASE) 50 mcg/actuation nasal spray INSTILL 2 SPRAYS IN EACH NOSTRIL DAILY - Bfpws-6-HEF-EPA-Fish Oil 1,000 mg (120 mg-180 mg) cap [...] 4pm Dx:Q87.1 Problem List As Of Date 01/12/2024 Noted Resolved Other malaise and fatigue [R53.81, [...] (HCC) [E66.01] 01/28/2006 12/13/2013 Open wound of k (more content not included)... Normal [facility] Basic Metabolic Profile (BMP )on 01-08-2024 BUN/CRE 34.5 RATIO High 12-27 [facility] Comment on above: Performed By: #### L 500.2500 ####[facility] [address] [place], [address] CA,Total 9.3 mg/dL Normal 8.5-10.1 [facility] Comment on above: Performed By: #### L 500.2500 ####[facility] [address] [place], [address] Chloride [Moles/Vol] 106 mmol/L Normal 98-107 [facility] Comment on above: Performed By: #### L 500.2500 ####[facility] [address] [place], [address] CO2 [Moles/Vol] 32.0 mmol/L Normal 21.0-32.0 [facility] Comment on above: Performed By: #### L 500.2500 ####[facility] [address] [place], [address] Creatinine [Mass/Vol] 0.58 mg/dL Normal 0.55-1.02 [facility] Comment on above: Result Comment: The validity of the calculated GFR GFRAA in patients over70 years has not been determined. Clinical correlation isessential. Performed By: #### L 500.2500 ####[facility] [address] [place], [address] ECRCL 155.04 ml/min Normal [facility] Comment on above: Performed By: #### L 500.2500 ####[facility] [address] [place], [address] EST GFR - AA 147 mL/min Normal >60 [facility] Comment on above: Result Comment: Afri can [place] GFR Calc Performed By: #### L 500.2500 ####[facility] [address] [place], [address] GAP 3 Low 5-15 [facility] Comment on above: Performed By: #### L 500.2500 ####[facility] [address] [place], [address] GFR/1.73 sq M.predicted among non-blacks MDRD (S/P/Bld) [Vol rate/Area] 122 mL/min/{1.73_m2} Normal >60 [facility] Comment on above: Result Comment: Non- GFR Calc Performed By: #### L 500.2500 ####[facility] [address] [place], [address] Glucose [Mass/Vol] 78 mg/dL Normal 74-106 [facility] Comment on above: Performed By: #### L 500.2500 ####[facility] [address] [place], [address] Potassium [Moles/Vol] 4.6 mmol/L Normal 3.5-5.1 [facility] Comment on above: Performed By: #### L 500.2500 ####[facility] [address] [place], [address] Sodium [Moles/Vol] 141 mmol/L Normal 136-145 [facility] Comment on above: Performed By: #### L 500.2500 ####[facility] [address] [place], [address] Urea nitrogen [Mass/Vol] 20 mg/dL High 7-18 [facility] Comment on above: Performed By: #### L 500.2500 ####[facility] [address] [place], [address] Emergency Department Summary on 01-08-2024 Emergency Department Summary Normal [facility] 01-07-2024 CNPN Telephone (INTMWS) SIA ABDUL ([id number]) 1980 F Date Time Provider Department 01/07/24 MARILEE THAKUR INTMWS During your visit today, we recorded the following information about you: Candelaria Ball LPN 01/07/2024 10:29 AM Signed [facility]ha [facility] calling patient weight today at 850 am was 276 pounds. She is on very strict diet and liquid amount that she can drink daily. Patient is currently taking Lasix 40 mg daily. Please advise Rah Turner RN 01/07/2024 1:19 PM Signed See duplicate encounter. Allergies As of Date: 01/07/2024 Noted Allergy Reaction BEE STING 02/28/2023 10 - Anaphylaxis DILANTIN (PHENYTOIN SODIUM EXTEND*01/28/2006 Date Reviewed: 11/18/2023 Reviewed by: Aaliyah Gonzalez, MA - Fully Assessed Reason for Visit: Patient Update [1234] weight increasing [Other] Prescriptions as of 01/07/2024 - furosemide (LASIX) 40 mg tablet Take [...] mouth once daily. - multivitamin-ferrous fumarate-folic acid (CERTAVITE-ANTIOXIDANT ) Take 1 tablet by mouth once daily. - fluticasone (FLONASE) 50 mcg/actuation nasal spray INSTILL 2 SPRAYS IN EACH NOSTRIL DAILY - Jqtzq-0-XSM-EPA-Fish Oil 1,000 mg (120 mg-180 mg) cap [...] 4pm Dx:Q87.1 Problem List As Of Date 01/07/2024 Noted Resolved Other malaise and fatigue [R53.81, [...] 02/09/2015 BMI 45.0-49.9, adult (HCC) [Z68.42] 02/09/2015 (more content not included)... Normal [facility] CNPNon 01-06-2024 CNPN Telephone (INTMWS) SIA ABDUL ([id number]) 1980 F Date Time Provider Department 01/06/24 MARILEE THAKUR INTMWS During your visit today, we recorded the following information about you: Candelaria Ball LPN 01/06/2024 10:58 AM Signed [facility]ha [facility] calling with patient weight was told if went up 3 pounds to report to PCP. Patient weight today at 745 am was 269 pounds and yesterday weight was 266 pounds. Patient has hospital follow up scheduled for 01/12/2024 with PCP. Marilee Thakur MD 01/06/2024 5:03 PM Signed Would ask her to take daily lasix for 3 days She should have as a reserve. Marilee Lassiter MD, Jane, MA 01/07/2024 8:21 AM Signed Spoke with Shobha, when patient was discharged from hospital, she was instructed to take 40 mg lasix for 5 days. Today is day #5. Do you want patient to take additional 3 days? Shobha is needing written directions faxed to [phone] as Shobha is not licensed and can not take verbal order. Marilee Thakur MD 01/07/2024 10:44 AM Signed Can you update me how much lasix she lost with the lasix, since discharge? Marilee Lassiter MD, Amanda, RN 01/07/2024 11:16 AM Signed Called and left a voicemail for Sh[facility]ha [facility], caregiver to call back and ask for a nurse to receive the providers message. RODRÍGUEZ Hua M Robin, RN 01/07/2024 1:18 PM Signed Shobha returned call. Shobha had called today at 10:29 am, and that message copied and pasted below, and the other encounter closed: Note [facility]ha [facility] calling patient weight today at 850 am was 276 pounds. She is on very strict diet and liquid amount that she can drink daily. Patient is currently taking Lasix 40 mg daily. Please advise During this call, Shobha reports, weight loss since discharge from hospital = none. Reports during hospital stay pt gained 30 lbs. Pt has been home since Friday. Instructions from hospital were to weigh pt daily, and call pcp with weight gain > 3 lbs in 24 hours. Reports pt had weight gain of 3 lbs yesterday, and 7 lbs the day before. Total in 2 days = 10 lb weight gain. Please advise and phone Shobha with reply: [phone]. Shobha will still need order faxed to [phone] since she cannot take verbal. Rah Turner RN 01/08/2024 8:25 AM Signed Shobha- [place]- phoned stating she needs a reply today, hopefully within the hour, b/c she has an UNDERWRITING TECHNICIAN there who can take a verbal. . She needs a verbal to continue lasix 40 mg for 3 more days. States patient will be in crisis if they do not get this order. More information in below messages. Mika Kaplan APRN.OBED 01/08/2024 8:59 AM Signed Lets just increase the lasix to 40mg and 20 meq of KCL continuously as she has continued to need this dose. Must keep upcoming appointment with PCP. For any increase in shortness of breath or urgent concern she needs to go to ER. Who is she seeing for cardiology? When is her next appointment? Thank you Mika Kaplan APRN.Rah Rodríguez, RODRÍGUEZ 01/08/2024 9:16 AM Signed Phoned Shobha and given provider's message below. Shobha agreeable. Shobha will have UNDERWRITING TECHNICIAN call in for verbal. Will leave encounter open until UNDERWRITING TECHNICIAN calls back. Reports the Rx's need to be sent to [facility]. Pended for [facility]. Patient has appt with tier lift truck operator- Dr. Goodman at [facility] on 01-20-24 @ 8:30 am, and with pcp on 01-12-24 @ 9 am. Rah Turner RN 01/08/2024 9:24 AM Signed Blanca ORTEGA returned call and given verbal written by provider below. Blanca verbalized understanding. Still need Rx's sent to [facility]. Allergies As of Date: 01/06/2024 Noted Allergy Reaction BEE STING 02/28/2023 10 - Anaphylaxis DILANTIN (PHENYTOIN SODIUM EXTEND*01/28/2006 Date Reviewed: 11/18/2023 Reviewed by: Aaliyah Gonzalez MA - Fully Assessed Reason for Visit: Patient Update [1234] Primary Visit Diagnosis:Medication management [Z79.899] Order(s):BASIC METABOLIC PANEL [SQBMP] Order #: [id number] FUTURE furosemide (LASIX) 40 mg tabletTake 1 tablet by mouth once daily.Disp: 30 tabletRfl: 11 potassium chloride 20 mEq TbERTake 1 tablet by mouth once daily.Disp: 30 tabletRfl: 11 Prescriptions as of 01/08/2024 - furosemide (LASIX) 40 mg tablet Take 1 tablet by mouth once daily. - potassium chloride 20 mEq TbER Take 1 tablet by mouth once daily. - ammonium lactate (LAC-HYDRIN) 12 % cream APPLY TOPICALLY TO AFFECTED AREA(S) ON LEGS AT BEDTIME - Leg Brace (TRUE CMFT KNEE COMPRESSION) misc 1 Each once daily. - multivitamin-ferrous fumarate-folic acid (CERTAVITE-ANTIOXIDANT ) Take 1 tablet by mouth once daily. - fluticasone (FLONASE) 50 mcg/actuation nasal spray INSTILL 2 SPRAYS IN EACH NOSTRIL DAILY - Sfbnk-0-HDF-EPA-Fish Oil 1,000 mg (120 mg-180 mg) cap Take 1 capsule by mouth once daily. - EPINEPHrine (EPIP (more content not included)... Normal [facility] Basic Metabolic Profile (BMP )on 01-04-2024 BUN Normal 7-18 [facility] Comment on above: Result Comment: Canc elled via OM: Order cancelled - Patient discharged Performed By: #### L 500.2500, L100.0100 ####[facility] [address] [place], [address] BUN/CRE Normal 10-20 [facility] Comment on above: Result Comment: Canc elled via OM: Order cancelled - Patient discharged Performed By: #### L 500.2500, L100.0100 ####[facility] [address] [place], [address] CA,Total Normal 8.5-10.1 [facility] Comment on above: Result Comment: Canc elled via OM: Order cancelled - Patient discharged Performed By: #### L 500.2500, L100.0100 ####[facility] [address] [place], [address] CL Normal 98-107 [facility] Comment on above: Result Comment: Canc elled via OM: Order cancelled - Patient discharged Performed By: #### L 500.2500, L100.0100 ####[facility] [address] [place], [address] CO2 Normal 21.0-32.0 [facility] Comment on above: Result Comment: Canc elled via OM: Order cancelled - Patient discharged Performed By: #### L 500.2500, L100.0100 ####[facility] [address] [place], [address] CREAT,SERUM Normal 0.55-1.02 [facility] Comment on above: Result Comment: Canc elled via OM: Order cancelled - Patient discharged Performed By: #### L 500.2500, L100.0100 ####[facility] [address] [place], [address] EST GFR Normal >60 [facility] Comment on above: Result Comment: Canc elled via OM: Order cancelled - Patient discharged Performed By: #### L 500.2500, L100.0100 ####[facility] [address] [place], [address] EST GFR - AA Normal >60 [facility] Comment on above: Result Comment: Canc elled via OM: Order cancelled - Patient discharged Performed By: #### L 500.2500, L100.0100 ####[facility] [address] [place], [address] GAP Normal 5-15 [facility] Comment on above: Result Comment: Canc elled via OM: Order cancelled - Patient discharged Performed By: #### L 500.2500, L100.0100 ####[facility] [address] [place], [address] GLU Normal 74-106 [facility] Comment on above: Result Comment: Canc elled via OM: Order cancelled - Patient discharged Performed By: #### L 500.2500, L100.0100 ####[facility] [address] [place], [address] Potassium Normal 3.5-5.1 [facility] Comment on above: Result Comment: Canc elled via OM: Order cancelled - Patient discharged Performed By: #### L 500.2500, L100.0100 ####[facility] [address] [place], [address] Basic Metabolic Profile (BMP) Normal 136-145 [facility] Comment on above: Result Comment: Canc elled via OM: Order cancelled - Patient discharged Performed By: #### L 500.2500, L100.0100 ####[facility] [address] [place], [address] CBC W/Diff, Automatedon 10-2 Absolute Neut Normal 2.0-7.7 [facility] Comment on above: Result Comment: Canc elled via OM: Order cancelled - Patient discharged Performed By: #### L 500.2500, L100.0100 ####[facility] [address] [place], [address] HCT Normal 37-47 [facility] Comment on above: Result Comment: Canc elled via OM: Order cancelled - Patient discharged Performed By: #### L 500.2500, L100.0100 ####[facility] [address] [place], [address] HGB Normal 12.0-15.0 [facility] Comment on above: Result Comment: Canc elled via OM: Order cancelled - Patient discharged Performed By: #### L 500.2500, L100.0100 ####[facility] [address] [place], [address] MCH Normal 27.0-32.0 [facility] Comment on above: Result Comment: Canc elled via OM: Order cancelled - Patient discharged Performed By: #### L 500.2500, L100.0100 ####[facility] [address] [place], [address] MCHC Normal 32-36 [facility] Comment on above: Result Comment: Canc elled via OM: Order cancelled - Patient discharged Performed By: #### L 500.2500, L100.0100 ####[facility] [address] [place], [address] MCV Normal 81-99 [facility] Comment on above: Result Comment: Canc elled via OM: Order cancelled - Patient discharged Performed By: #### L 500.2500, L100.0100 ####[facility] [address] [place], [address] NEUT% Normal 47-70 [facility] Comment on above: Result Comment: Canc elled via OM: Order cancelled - Patient discharged Performed By: #### L 500.2500, L100.0100 ####[facility] [address] [place], [address] PLT Normal 150-450 [facility] Comment on above: Result Comment: Canc elled via OM: Order cancelled - Patient discharged Performed By: #### L 500.2500, L100.0100 ####[facility] [address] [place], [address] RBC Normal 4.2-5.4 [facility] Comment on above: Result Comment: Canc elled via OM: Order cancelled - Patient discharged Performed By: #### L 500.2500, L100.0100 ####[facility] [address] [place], [address] RDW CV Normal 11.6-14.6 [facility] Comment on above: Result Comment: Canc elled via OM: Order cancelled - Patient discharged Performed By: #### L 500.2500, L100.0100 ####[facility] [address] [place], [address] RDW SD Normal 35.1-43.9 [facility] Comment on above: Result Comment: Canc elled via OM: Order cancelled - Patient discharged Performed By: #### L 500.2500, L100.0100 ####[facility] [address] [place], [address] WBC Normal 4.4-11.0 [facility] Comment on above: Result Comment: Canc elled via OM: Order cancelled - Patient discharged Performed By: #### L 500.2500, L100.0100 ####[facility] [address] [place], [address] Basic Metabolic Profile (BMP )on 01-03-2024 BUN Normal 7-18 [facility] Comment on above: Result Comment: Canc elled via OM: Order cancelled - Patient discharged Performed By: #### L 100.0100, L500.2500 ####[facility] [address] [place], [address] BUN/CRE Normal 10-20 [facility] Comment on above: Result Comment: Canc elled via OM: Order cancelled - Patient discharged Performed By: #### L 100.0100, L500.2500 ####[facility] [address] [place], [address] CA,Total Normal 8.5-10.1 [facility] Comment on above: Result Comment: Canc elled via OM: Order cancelled - Patient discharged Performed By: #### L 100.0100, L500.2500 ####[facility] [address] [place], [address] CL Normal 98-107 [facility] Comment on above: Result Comment: Canc elled via OM: Order cancelled - Patient discharged Performed By: #### L 100.0100, L500.2500 ####[facility] [address] [place], [address] CO2 Normal 21.0-32.0 [facility] Comment on above: Result Comment: Canc elled via OM: Order cancelled - Patient discharged Performed By: #### L 100.0100, L500.2500 ####[facility] [address] [place], [address] CREAT,SERUM Normal 0.55-1.02 [facility] Comment on above: Result Comment: Canc elled via OM: Order cancelled - Patient discharged Performed By: #### L 100.0100, L500.2500 ####[facility] [address] [place], [address] EST GFR Normal >60 [facility] Comment on above: Result Comment: Canc elled via OM: Order cancelled - Patient discharged Performed By: #### L 100.0100, L500.2500 ####[facility] [address] [place], [address] EST GFR - AA Normal >60 [facility] Comment on above: Result Comment: Canc elled via OM: Order cancelled - Patient discharged Performed By: #### L 100.0100, L500.2500 ####[facility] [address] [place], [address] GAP Normal 5-15 [facility] Comment on above: Result Comment: Canc elled via OM: Order cancelled - Patient discharged Performed By: #### L 100.0100, L500.2500 ####[facility] [address] [place], [address] GLU Normal 74-106 [facility] Comment on above: Result Comment: Canc elled via OM: Order cancelled - Patient discharged Performed By: #### L 100.0100, L500.2500 ####[facility] [address] [place], [address] Potassium Normal 3.5-5.1 [facility] Comment on above: Result Comment: Canc elled via OM: Order cancelled - Patient discharged Performed By: #### L 100.0100, L500.2500 ####[facility] [address] [place], [address] Basic Metabolic Profile (BMP) Normal 136-145 [facility] Comment on above: Result Comment: Canc elled via OM: Order cancelled - Patient discharged Performed By: #### L 100.0100, L500.2500 ####[facility] [address] [place], [address] CBC W/Diff, Automatedon 10-2 Absolute Neut Normal 2.0-7.7 [facility] Comment on above: Result Comment: Canc elled via OM: Order cancelled - Patient discharged Performed By: #### L 100.0100, L500.2500 ####[facility] [address] [place], [address] HCT Normal 37-47 [facility] Comment on above: Result Comment: Canc elled via OM: Order cancelled - Patient discharged Performed By: #### L 100.0100, L500.2500 ####[facility] [address] [place], [address] HGB Normal 12.0-15.0 [facility] Comment on above: Result Comment: Canc elled via OM: Order cancelled - Patient discharged Performed By: #### L 100.0100, L500.2500 ####[facility] [address] [place], [address] MCH Normal 27.0-32.0 [facility] Comment on above: Result Comment: Canc elled via OM: Order cancelled - Patient discharged Performed By: #### L 100.0100, L500.2500 ####[facility] [address] [place], [address] MCHC Normal 32-36 [facility] Comment on above: Result Comment: Canc elled via OM: Order cancelled - Patient discharged Performed By: #### L 100.0100, L500.2500 ####[facility] [address] [place], [address] MCV Normal 81-99 [facility] Comment on above: Result Comment: Canc elled via OM: Order cancelled - Patient discharged Performed By: #### L 100.0100, L500.2500 ####[facility] [address] [place], [address] NEUT% Normal 47-70 [facility] Comment on above: Result Comment: Canc elled via OM: Order cancelled - Patient discharged Performed By: #### L 100.0100, L500.2500 ####[facility] [address] [place], [address] PLT Normal 150-450 [facility] Comment on above: Result Comment: Canc elled via OM: Order cancelled - Patient discharged Performed By: #### L 100.0100, L500.2500 ####[facility] [address] [place], [address] RBC Normal 4.2-5.4 [facility] Comment on above: Result Comment: Canc elled via OM: Order cancelled - Patient discharged Performed By: #### L 100.0100, L500.2500 ####[facility] [address] [place], [address] RDW CV Normal 11.6-14.6 [facility] Comment on above: Result Comment: Canc elled via OM: Order cancelled - Patient discharged Performed By: #### L 100.0100, L500.2500 ####[facility] [address] [place], [address] RDW SD Normal 35.1-43.9 [facility] Comment on above: Result Comment: Canc elled via OM: Order cancelled - Patient discharged Performed By: #### L 100.0100, L500.2500 ####[facility] [address] [place], [address] WBC Normal 4.4-11.0 [facility] Comment on above: Result Comment: Canc elled via OM: Order cancelled - Patient discharged Performed By: #### L 100.0100, L500.2500 ####[facility] [address] [place], [address] Basic Metabolic Profile (BMP )on 01-02-2024 BUN Normal 7-18 [facility] Comment on above: Result Comment: ISABELLA ENT DISCHARGED Performed By: #### L 500.2500, L100.0100 ####[facility] [address] [place], [address] BUN/CRE Normal 10-20 [facility] Comment on above: Result Comment: ISABELLA ENT DISCHARGED Performed By: #### L 500.2500, L100.0100 ####[facility] [address] [place], [address] CA,Total Normal 8.5-10.1 [facility] Comment on above: Result Comment: ISABELLA ENT DISCHARGED Performed By: #### L 500.2500, L100.0100 ####[facility] [address] [place], [address] CL Normal 98-107 [facility] Comment on above: Result Comment: ISABELLA ENT DISCHARGED Performed By: #### L 500.2500, L100.0100 ####[facility] [address] [place], [address] CO2 Normal 21.0-32.0 [facility] Comment on above: Result Comment: ISABELLA ENT DISCHARGED Performed By: #### L 500.2500, L100.0100 ####[facility] [address] [place], [address] CREAT,SERUM Normal 0.55-1.02 [facility] Comment on above: Result Comment: ISABELLA ENT DISCHARGED Performed By: #### L 500.2500, L100.0100 ####[facility] [address] [place], [address] EST GFR Normal >60 [facility] Comment on above: Result Comment: ISABELLA ENT DISCHARGED Performed By: #### L 500.2500, L100.0100 ####[facility] [address] [place], [address] EST GFR - AA Normal >60 [facility] Comment on above: Result Comment: ISABELLA ENT DISCHARGED Performed By: #### L 500.2500, L100.0100 ####[facility] [address] [place], [address] GAP Normal 5-15 [facility] Comment on above: Result Comment: ISABELLA ENT DISCHARGED Performed By: #### L 500.2500, L100.0100 ####[facility] [address] [place], [address] GLU Normal 74-106 [facility] Comment on above: Result Comment: ISABELLA ENT DISCHARGED Performed By: #### L 500.2500, L100.0100 ####[facility] [address] [place], [address] Potassium Normal 3.5-5.1 [facility] Comment on above: Result Comment: ISABELLA ENT DISCHARGED Performed By: #### L 500.2500, L100.0100 ####[facility] [address] [place], [address] Basic Metabolic Profile (BMP) Normal 136-145 [facility] Comment on above: Result Comment: ISABELLA ENT DISCHARGED Performed By: #### L 500.2500, L100.0100 ####[facility] [address] [place], [address] Bedside Glucoseon 01-02-2024 FINGERSTICK GLU 86 mg/dL Normal 74-106 [facility] Comment on above: Result Comment: ETHAN PRITCHETT OF PATIENT CARE PER NURSING PROTOCOL Performed By: #### L 501.080 ####[facility] [address] [place], [address] CBC W/Diff, Automatedon 10-2 Absolute Neut Normal 2.0-7.7 [facility] Comment on above: Result Comment: @PAT IENT DISCHARGED Performed By: #### L 500.2500, L100.0100 ####[facility] [address] [place], [address] HCT Normal 37-47 [facility] Comment on above: Result Comment: @PAT IENT DISCHARGED Performed By: #### L 500.2500, L100.0100 ####[facility] [address] [place], [address] HGB Normal 12.0-15.0 [facility] Comment on above: Result Comment: @PAT IENT DISCHARGED Performed By: #### L 500.2500, L100.0100 ####[facility] [address] [place], [address] MCH Normal 27.0-32.0 [facility] Comment on above: Result Comment: @PAT IENT DISCHARGED Performed By: #### L 500.2500, L100.0100 ####[facility] [address] [place], [address] MCHC Normal 32-36 [facility] Comment on above: Result Comment: @PAT IENT DISCHARGED Performed By: #### L 500.2500, L100.0100 ####[facility] [address] [place], [address] MCV Normal 81-99 [facility] Comment on above: Result Comment: @PAT IENT DISCHARGED Performed By: #### L 500.2500, L100.0100 ####[facility] [address] [place], [address] NEUT% Normal 47-70 [facility] Comment on above: Result Comment: @PAT IENT DISCHARGED Performed By: #### L 500.2500, L100.0100 ####[facility] [address] [place], [address] PLT Normal 150-450 [facility] Comment on above: Result Comment: @PAT IENT DISCHARGED Performed By: #### L 500.2500, L100.0100 ####[facility] [address] [place], [address] RBC Normal 4.2-5.4 [facility] Comment on above: Result Comment: @PAT IENT DISCHARGED Performed By: #### L 500.2500, L100.0100 ####[facility] [address] [place], [address] RDW CV Normal 11.6-14.6 [facility] Comment on above: Result Comment: @PAT IENT DISCHARGED Performed By: #### L 500.2500, L100.0100 ####[facility] [address] [place], [address] RDW SD Normal 35.1-43.9 [facility] Comment on above: Result Comment: @PAT IENT DISCHARGED Performed By: #### L 500.2500, L100.0100 ####[facility] [address] [place], [address] WBC Normal 4.4-11.0 [facility] Comment on above: Result Comment: @PAT IENT DISCHARGED Performed By: #### L 500.2500, L100.0100 ####[facility] [address] [place], [address] Basic Metabolic Profile (BMP )on 12-31-2023 BUN/CRE 36.1 RATIO High 10-20 [facility] Comment on above: Performed By: #### L 100.0100, L500.2500 ####[facility] [address] [place], [address] CA,Total 8.8 mg/dL Normal 8.5-10.1 [facility] Comment on above: Performed By: #### L 100.0100, L500.2500 ####[facility] [address] [place], [address] Chloride [Moles/Vol] 100 mmol/L Normal 98-107 [facility] Comment on above: Performed By: #### L 100.0100, L500.2500 ####[facility] [address] [place], [address] CO2 [Moles/Vol] 39.0 mmol/L High 21.0-32.0 [facility] Comment on above: Performed By: #### L 100.0100, L500.2500 ####[facility] [address] [place], [address] Creatinine [Mass/Vol] 0.66 mg/dL Normal 0.55-1.02 [facility] Comment on above: Result Comment: The validity of the calculated GFR GFRAA in patients over70 years has not been determined. Clinical correlation isessential. Performed By: #### L 100.0100, L500.2500 ####[facility] [address] [place], [address] ECRCL 135.40 ml/min Normal [facility] Comment on above: Performed By: #### L 100.0100, L500.2500 ####[facility] [address] [place], [address] EST GFR - AA 126 mL/min Normal >60 [facility] Comment on above: Result Comment: Afri can [place] GFR Calc Performed By: #### L 100.0100, L500.2500 ####[facility] [address] [place], [address] GAP 1 Low 5-15 [facility] Comment on above: Performed By: #### L 100.0100, L500.2500 ####[facility] [address] [place], [address] GFR/1.73 sq M.predicted among non-blacks MDRD (S/P/Bld) [Vol rate/Area] 104 mL/min/{1.73_m2} Normal >60 [facility] Comment on above: Result Comment: Non- GFR Calc Performed By: #### L 100.0100, L500.2500 ####[facility] [address] [place], [address] Glucose [Mass/Vol] 88 mg/dL Normal 74-106 [facility] Comment on above: Performed By: #### L 100.0100, L500.2500 ####[facility] [address] [place], [address] Potassium [Moles/Vol] 4.0 mmol/L Normal 3.5-5.1 [facility] Comment on above: Performed By: #### L 100.0100, L500.2500 ####[facility] [address] [place], [address] Sodium [Moles/Vol] 140 mmol/L Normal 136-145 [facility] Comment on above: Performed By: #### L 100.0100, L500.2500 ####[facility] [address] [place], [address] Urea nitrogen [Mass/Vol] 24 mg/dL High 7-18 [facility] Comment on above: Performed By: #### L 100.0100, L500.2500 ####[facility] [address] [place], [address] CBC W/Diff, Automatedon 10-2 Absolute Lymph 2.82 X10 3/uL Normal 0.83-4.51 [facility] Comment on above: Performed By: #### L 100.0100, L500.2500 ####[facility] [address] [place], [address] Absolute Neut 8.3 X10 3/uL High 2.0-7.7 [facility] Comment on above: Performed By: #### L 100.0100, L500.2500 ####[facility] [address] [place], [address] Basophils/100 WBC (Bld) 0.6 % Normal 0-1 [facility] Comment on above: Performed By: #### L 100.0100, L500.2500 ####[facility] [address] [place], [address] Eosinophils/100 WBC (Bld) 3.6 % Normal 0-5 [facility] Comment on above: Performed By: #### L 100.0100, L500.2500 ####[facility] [address] [place], [address] Erythrocyte distribution width (RBC) [Ratio] 13.3 % Normal 11.6-14.6 [facility] Comment on above: Performed By: #### L 100.0100, L500.2500 ####[facility] [address] [place], [address] Hematocrit (Bld) [Volume fraction] 41.3 % Normal 37-47 [facility] Comment on above: Performed By: #### L 100.0100, L500.2500 ####[facility] [address] [place], [address] Hemoglobin (Bld) [Mass/Vol] 13.2 g/dL Normal 12.0-15.0 [facility] Comment on above: Performed By: #### L 100.0100, L500.2500 ####[facility] [address] [place], [address] IG% 1.100 High 0.0-0.9 [facility] Comment on above: Result Comment: IG% - Immature Granulocytes (promyelocytes, myelocytes andmetamyelocytes) > 1% indicates that a LEFT SHIFT is Present. Performed By: #### L 100.0100, L500.2500 ####[facility] [address] [place], [address] Lymphocytes/100 WBC (Bld) 21.3 % Normal 19-41 [facility] Comment on above: Performed By: #### L 100.0100, L500.2500 ####[facility] [address] [place], [address] MCH (RBC) [Entitic mass] 32.0 pg Normal 27.0-32.0 [facility] Comment on above: Performed By: #### L 100.0100, L500.2500 ####[facility] [address] [place], [address] MCHC (RBC) [Mass/Vol] 32.0 g/dL Normal 32-36 [facility] Comment on above: Performed By: #### L 100.0100, L500.2500 ####[facility] [address] [place], [address] MCV (RBC) [Entitic vol] 100.2 fL High 81-99 [facility] Comment on above: Performed By: #### L 100.0100, L500.2500 ####[facility] [address] [place], [address] Monocytes/100 WBC (Bld) 10.5 % High 0-10 [facility] Comment on above: Performed By: #### L 100.0100, L500.2500 ####[facility] [address] [place], [address] Neutrophils/100 WBC (Bld) 62.9 % Normal 47-70 [facility] Comment on above: Performed By: #### L 100.0100, L500.2500 ####[facility] [address] [place], [address] Nucleated RBC (Bld) [#/Vol] 0 10*3/uL Normal 0-5 [facility] Comment on above: Performed By: #### L 100.0100, L500.2500 ####[facility] [address] [place], [address] Platelet mean volume (Bld) [Entitic vol] 11.2 fL Normal 6.2-12.0 [facility] Comment on above: Performed By: #### L 100.0100, L500.2500 ####[facility] [address] [place], [address] Platelets (Bld) [#/Vol] 175 10*3/uL Normal 150-450 [facility] Comment on above: Performed By: #### L 100.0100, L500.2500 ####[facility] [address] [place], [address] RBC (Bld) [#/Vol] 4.12 10*6/uL Low 4.2-5.4 [facility] Comment on above: Performed By: #### L 100.0100, L500.2500 ####[facility] [address] [place], [address] RDW SD 49.1 fl High 35.1-43.9 [facility] Comment on above: Performed By: #### L 100.0100, L500.2500 ####[facility] [address] [place], [address] WBC (Bld) [#/Vol] 13.3 10*3/uL High 4.4-11.0 [facility] Comment on above: Performed By: #### L 100.0100, L500.2500 ####[facility] [address] [place], [address] Basic Metabolic Profile (BMP )on 12-30-2023 BUN/CRE 37.9 RATIO High 10-20 [facility] Comment on above: Performed By: #### L 500.2500, L100.0100 ####[facility] [address] [place], [address] CA,Total 8.7 mg/dL Normal 8.5-10.1 [facility] Comment on above: Performed By: #### L 500.2500, L100.0100 ####[facility] [address] [place], [address] Chloride [Moles/Vol] 98 mmol/L Normal 98-107 [facility] Comment on above: Performed By: #### L 500.2500, L100.0100 ####[facility] [address] [place], [address] CO2 [Moles/Vol] 36.0 mmol/L High 21.0-32.0 [facility] Comment on above: Performed By: #### L 500.2500, L100.0100 ####[facility] [address] [place], [address] Creatinine [Mass/Vol] 0.55 mg/dL Normal 0.55-1.02 [facility] Comment on above: Result Comment: The validity of the calculated GFR GFRAA in patients over70 years has not been determined. Clinical correlation isessential. Performed By: #### L 500.2500, L100.0100 ####[facility] [address] [place], [address] ECRCL 164.43 ml/min Normal [facility] Comment on above: Performed By: #### L 500.2500, L100.0100 ####[facility] [address] [place], [address] EST GFR - AA 155 mL/min Normal >60 [facility] Comment on above: Result Comment: Afri can [place] GFR Calc Performed By: #### L 500.2500, L100.0100 ####[facility] [address] [place], [address] GAP 2 Low 5-15 [facility] Comment on above: Performed By: #### L 500.2500, L100.0100 ####[facility] [address] [place], [address] GFR/1.73 sq M.predicted among non-blacks MDRD (S/P/Bld) [Vol rate/Area] 128 mL/min/{1.73_m2} Normal >60 [facility] Comment on above: Result Comment: Non- GFR Calc Performed By: #### L 500.2500, L100.0100 ####[facility] [address] [place], [address] Glucose [Mass/Vol] 87 mg/dL Normal 74-106 [facility] Comment on above: Performed By: #### L 500.2500, L100.0100 ####[facility] [address] [place], [address] Potassium [Moles/Vol] 4.3 mmol/L Normal 3.5-5.1 [facility] Comment on above: Performed By: #### L 500.2500, L100.0100 ####[facility] [address] [place], [address] Sodium [Moles/Vol] 136 mmol/L Normal 136-145 [facility] Comment on above: Performed By: #### L 500.2500, L100.0100 ####[facility] [address] [place], [address] Urea nitrogen [Mass/Vol] 21 mg/dL High 7-18 [facility] Comment on above: Performed By: #### L 500.2500, L100.0100 ####[facility] [address] [place], [address] CBC W/Diff, Automatedon 10-2 Absolute Lymph 2.40 X10 3/uL Normal 0.83-4.51 [facility] Comment on above: Performed By: #### L 500.2500, L100.0100 ####[facility] [address] [place], [address] Absolute Neut 7.1 X10 3/uL Normal 2.0-7.7 [facility] Comment on above: Performed By: #### L 500.2500, L100.0100 ####[facility] [address] [place], [address] Basophils/100 WBC (Bld) 0.4 % Normal 0-1 [facility] Comment on above: Performed By: #### L 500.2500, L100.0100 ####[facility] [address] [place], [address] Eosinophils/100 WBC (Bld) 4.3 % Normal 0-5 [facility] Comment on above: Performed By: #### L 500.2500, L100.0100 ####[facility] [address] [place], [address] Erythrocyte distribution width (RBC) [Ratio] 13.2 % Normal 11.6-14.6 [facility] Comment on above: Performed By: #### L 500.2500, L100.0100 ####[facility] [address] [place], [address] Hematocrit (Bld) [Volume fraction] 39.8 % Normal 37-47 [facility] Comment on above: Performed By: #### L 500.2500, L100.0100 ####[facility] [address] [place], [address] Hemoglobin (Bld) [Mass/Vol] 12.7 g/dL Normal 12.0-15.0 [facility] Comment on above: Performed By: #### L 500.2500, L100.0100 ####[facility] [address] [place], [address] IG% 0.800 Normal 0.0-0.9 [facility] Comment on above: Result Comment: IG% - Immature Granulocytes (promyelocytes, myelocytes andmetamyelocytes) > 1% indicates that a LEFT SHIFT is Present. Performed By: #### L 500.2500, L100.0100 ####[facility] [address] [place], [address] Lymphocytes/100 WBC (Bld) 21.3 % Normal 19-41 [facility] Comment on above: Performed By: #### L 500.2500, L100.0100 ####[facility] [address] [place], [address] MCH (RBC) [Entitic mass] 32.2 pg High 27.0-32.0 [facility] Comment on above: Performed By: #### L 500.2500, L100.0100 ####[facility] [address] [place], [address] MCHC (RBC) [Mass/Vol] 31.9 g/dL Low 32-36 [facility] Comment on above: Performed By: #### L 500.2500, L100.0100 ####[facility] [address] [place], [address] MCV (RBC) [Entitic vol] 101.0 fL High 81-99 [facility] Comment on above: Performed By: #### L 500.2500, L100.0100 ####[facility] [address] [place], [address] Monocytes/100 WBC (Bld) 10.1 % High 0-10 [facility] Comment on above: Performed By: #### L 500.2500, L100.0100 ####[facility] [address] [place], [address] Neutrophils/100 WBC (Bld) 63.1 % Normal 47-70 [facility] Comment on above: Performed By: #### L 500.2500, L100.0100 ####[facility] [address] [place], [address] Nucleated RBC (Bld) [#/Vol] 0 10*3/uL Normal 0-5 [facility] Comment on above: Performed By: #### L 500.2500, L100.0100 ####[facility] [address] [place], [address] Platelet mean volume (Bld) [Entitic vol] 10.5 fL Normal 6.2-12.0 [facility] Comment on above: Performed By: #### L 500.2500, L100.0100 ####[facility] [address] [place], [address] Platelets (Bld) [#/Vol] 152 10*3/uL Normal 150-450 [facility] Comment on above: Performed By: #### L 500.2500, L100.0100 ####[facility] [address] [place], [address] RBC (Bld) [#/Vol] 3.94 10*6/uL Low 4.2-5.4 [facility] Comment on above: Performed By: #### L 500.2500, L100.0100 ####[facility] [address] [place], [address] RDW SD 49.2 fl High 35.1-43.9 [facility] Comment on above: Performed By: #### L 500.2500, L100.0100 ####[facility] [address] [place], [address] WBC (Bld) [#/Vol] 11.3 10*3/uL High 4.4-11.0 [facility] Comment on above: Performed By: #### L 500.2500, L100.0100 ####[facility] [address] [place], [address] Basic Metabolic Profile (BMP )on 12-30-2023 BUN/CRE 38.0 RATIO High 10-20 [facility] Comment on above: Performed By: #### L 100.0100, L500.2500 ####[facility] [address] [place], [address] CA,Total 8.6 mg/dL Normal 8.5-10.1 [facility] Comment on above: Performed By: #### L 100.0100, L500.2500 ####[facility] [address] [place], [address] Chloride [Moles/Vol] 100 mmol/L Normal 98-107 [facility] Comment on above: Performed By: #### L 100.0100, L500.2500 ####[facility] [address] [place], [address] CO2 [Moles/Vol] 37.0 mmol/L High 21.0-32.0 [facility] Comment on above: Performed By: #### L 100.0100, L500.2500 ####[facility] [address] [place], [address] Creatinine [Mass/Vol] 0.55 mg/dL Normal 0.55-1.02 [facility] Comment on above: Result Comment: The validity of the calculated GFR GFRAA in patients over70 years has not been determined. Clinical correlation isessential. Performed By: #### L 100.0100, L500.2500 ####[facility] [address] [place], [address] ECRCL 165.37 ml/min Normal [facility] Comment on above: Performed By: #### L 100.0100, L500.2500 ####[facility] [address] [place], [address] EST GFR - AA 155 mL/min Normal >60 [facility] Comment on above: Result Comment: Afri can [place] GFR Calc Performed By: #### L 100.0100, L500.2500 ####[facility] [address] [place], [address] GAP 1 Low 5-15 [facility] Comment on above: Performed By: #### L 100.0100, L500.2500 ####[facility] [address] [place], [address] GFR/1.73 sq M.predicted among non-blacks MDRD (S/P/Bld) [Vol rate/Area] 128 mL/min/{1.73_m2} Normal >60 [facility] Comment on above: Result Comment: Non- GFR Calc Performed By: #### L 100.0100, L500.2500 ####[facility] [address] [place], [address] Glucose [Mass/Vol] 82 mg/dL Normal 74-106 [facility] Comment on above: Performed By: #### L 100.0100, L500.2500 ####[facility] [address] [place], [address] Potassium [Moles/Vol] 4.5 mmol/L Normal 3.5-5.1 [facility] Comment on above: Result Comment: Mode rate Hemolysis, Result may be falsely increased. Performed By: #### L 100.0100, L500.2500 ####[facility] [address] [place], [address] Sodium [Moles/Vol] 138 mmol/L Normal 136-145 [facility] Comment on above: Performed By: #### L 100.0100, L500.2500 ####[facility] [address] [place], [address] Urea nitrogen [Mass/Vol] 21 mg/dL High 7-18 [facility] Comment on above: Performed By: #### L 100.0100, L500.2500 ####[facility] [address] [place], [address] CBC W/Diff, Automatedon 10-2 2-2023 Absolute Lymph 2.42 X10 3/uL Normal 0.83-4.51 [facility] Comment on above: Performed By: #### L 100.0100, L500.2500 ####[facility] [address] [place], [address] Absolute Neut 7.5 X10 3/uL Normal 2.0-7.7 [facility] Comment on above: Performed By: #### L 100.0100, L500.2500 ####[facility] [address] [place], [address] Basophils/100 WBC (Bld) 0.4 % Normal 0-1 [facility] Comment on above: Performed By: #### L 100.0100, L500.2500 ####[facility] [address] [place], [address] Eosinophils/100 WBC (Bld) 3.5 % Normal 0-5 [facility] Comment on above: Performed By: #### L 100.0100, L500.2500 ####[facility] [address] [place], [address] Erythrocyte distribution width (RBC) [Ratio] 13.4 % Normal 11.6-14.6 [facility] Comment on above: Performed By: #### L 100.0100, L500.2500 ####[facility] [address] [place], [address] Hematocrit (Bld) [Volume fraction] 38.5 % Normal 37-47 [facility] Comment on above: Performed By: #### L 100.0100, L500.2500 ####[facility] [address] [place], [address] Hemoglobin (Bld) [Mass/Vol] 12.1 g/dL Normal 12.0-15.0 [facility] Comment on above: Performed By: #### L 100.0100, L500.2500 ####[facility] [address] [place], [address] IG% 0.600 Normal 0.0-0.9 [facility] Comment on above: Result Comment: IG% - Immature Granulocytes (promyelocytes, myelocytes andmetamyelocytes) > 1% indicates that a LEFT SHIFT is Present. Performed By: #### L 100.0100, L500.2500 ####[facility] [address] [place], [address] Lymphocytes/100 WBC (Bld) 20.9 % Normal 19-41 [facility] Comment on above: Performed By: #### L 100.0100, L500.2500 ####[facility] [address] [place], [address] MCH (RBC) [Entitic mass] 31.8 pg Normal 27.0-32.0 [facility] Comment on above: Performed By: #### L 100.0100, L500.2500 ####[facility] [address] [place], [address] MCHC (RBC) [Mass/Vol] 31.4 g/dL Low 32-36 [facility] Comment on above: Performed By: #### L 100.0100, L500.2500 ####[facility] [address] [place], [address] MCV (RBC) [Entitic vol] 101.3 fL High 81-99 [facility] Comment on above: Performed By: #### L 100.0100, L500.2500 ####[facility] [address] [place], [address] Monocytes/100 WBC (Bld) 9.5 % Normal 0-10 [facility] Comment on above: Performed By: #### L 100.0100, L500.2500 ####[facility] [address] [place], [address] Neutrophils/100 WBC (Bld) 65.1 % Normal 47-70 [facility] Comment on above: Performed By: #### L 100.0100, L500.2500 ####[facility] [address] [place], [address] Nucleated RBC (Bld) [#/Vol] 0 10*3/uL Normal 0-5 [facility] Comment on above: Performed By: #### L 100.0100, L500.2500 ####[facility] [address] [place], [address] Platelet mean volume (Bld) [Entitic vol] 10.8 fL Normal 6.2-12.0 [facility] Comment on above: Performed By: #### L 100.0100, L500.2500 ####[facility] [address] [place], [address] Platelets (Bld) [#/Vol] 177 10*3/uL Normal 150-450 [facility] Comment on above: Performed By: #### L 100.0100, L500.2500 ####[facility] [address] [place], [address] RBC (Bld) [#/Vol] 3.80 10*6/uL Low 4.2-5.4 [facility] Comment on above: Performed By: #### L 100.0100, L500.2500 ####[facility] [address] [place], [address] RDW SD 49.7 fl High 35.1-43.9 [facility] Comment on above: Performed By: #### L 100.0100, L500.2500 ####[facility] [address] [place], [address] WBC (Bld) [#/Vol] 11.6 10*3/uL High 4.4-11.0 [facility] Comment on above: Performed By: #### L 100.0100, L500.2500 ####[facility] [address] [place], [address] Basic Metabolic Profile (BMP )on 12-29-2023 BUN/CRE 33.2 RATIO High 10-20 [facility] Comment on above: Performed By: #### L 100.0100, L500.2500 ####[facility] [address] [place], [address] CA,Total 8.2 mg/dL Low 8.5-10.1 [facility] Comment on above: Performed By: #### L 100.0100, L500.2500 ####[facility] [address] [place], [address] Chloride [Moles/Vol] 103 mmol/L Normal 98-107 [facility] Comment on above: Performed By: #### L 100.0100, L500.2500 ####[facility] [address] [place], [address] CO2 [Moles/Vol] 38.0 mmol/L High 21.0-32.0 [facility] Comment on above: Performed By: #### L 100.0100, L500.2500 ####[facility] [address] [place], [address] Creatinine [Mass/Vol] 0.57 mg/dL Normal 0.55-1.02 [facility] Comment on above: Result Comment: The validity of the calculated GFR GFRAA in patients over70 years has not been determined. Clinical correlation isessential. Performed By: #### L 100.0100, L500.2500 ####[facility] [address] [place], [address] ECRCL 163.50 ml/min Normal [facility] Comment on above: Performed By: #### L 100.0100, L500.2500 ####[facility] [address] [place], [address] EST GFR - AA 149 mL/min Normal >60 [facility] Comment on above: Result Comment: Afri can [place] GFR Calc Performed By: #### L 100.0100, L500.2500 ####[facility] [address] [place], [address] GAP 0 Low 5-15 [facility] Comment on above: Performed By: #### L 100.0100, L500.2500 ####[facility] [address] [place], [address] GFR/1.73 sq M.predicted among non-blacks MDRD (S/P/Bld) [Vol rate/Area] 123 mL/min/{1.73_m2} Normal >60 [facility] Comment on above: Result Comment: Non- GFR Calc Performed By: #### L 100.0100, L500.2500 ####[facility] [address] [place], [address] Glucose [Mass/Vol] 88 mg/dL Normal 74-106 [facility] Comment on above: Performed By: #### L 100.0100, L500.2500 ####[facility] [address] [place], [address] Potassium [Moles/Vol] 4.0 mmol/L Normal 3.5-5.1 [facility] Comment on above: Performed By: #### L 100.0100, L500.2500 ####[facility] [address] [place], [address] Sodium [Moles/Vol] 140 mmol/L Normal 136-145 [facility] Comment on above: Performed By: #### L 100.0100, L500.2500 ####[facility] [address] [place], [address] Urea nitrogen [Mass/Vol] 19 mg/dL High 7-18 [facility] Comment on above: Performed By: #### L 100.0100, L500.2500 ####[facility] [address] [place], [address] CBC W/Diff, Automatedon 10-2 Absolute Lymph 2.46 X10 3/uL Normal 0.83-4.51 [facility] Comment on above: Performed By: #### L 100.0100, L500.2500 ####[facility] [address] [place], [address] Absolute Neut 7.4 X10 3/uL Normal 2.0-7.7 [facility] Comment on above: Performed By: #### L 100.0100, L500.2500 ####[facility] [address] [place], [address] Basophils/100 WBC (Bld) 0.4 % Normal 0-1 [facility] Comment on above: Performed By: #### L 100.0100, L500.2500 ####[facility] [address] [place], [address] Eosinophils/100 WBC (Bld) 2.7 % Normal 0-5 [facility] Comment on above: Performed By: #### L 100.0100, L500.2500 ####[facility] [address] [place], [address] Erythrocyte distribution width (RBC) [Ratio] 13.4 % Normal 11.6-14.6 [facility] Comment on above: Performed By: #### L 100.0100, L500.2500 ####[facility] [address] [place], [address] Hematocrit (Bld) [Volume fraction] 36.0 % Low 37-47 [facility] Comment on above: Performed By: #### L 100.0100, L500.2500 ####[facility] [address] [place], [address] Hemoglobin (Bld) [Mass/Vol] 11.2 g/dL Low 12.0-15.0 [facility] Comment on above: Performed By: #### L 100.0100, L500.2500 ####[facility] [address] [place], [address] IG% 0.700 Normal 0.0-0.9 [facility] Comment on above: Result Comment: IG% - Immature Granulocytes (promyelocytes, myelocytes andmetamyelocytes) > 1% indicates that a LEFT SHIFT is Present. Performed By: #### L 100.0100, L500.2500 ####[facility] [address] [place], [address] Lymphocytes/100 WBC (Bld) 21.7 % Normal 19-41 [facility] Comment on above: Performed By: #### L 100.0100, L500.2500 ####[facility] [address] [place], [address] MCH (RBC) [Entitic mass] 31.9 pg Normal 27.0-32.0 [facility] Comment on above: Performed By: #### L 100.0100, L500.2500 ####[facility] [address] [place], [address] MCHC (RBC) [Mass/Vol] 31.1 g/dL Low 32-36 [facility] Comment on above: Performed By: #### L 100.0100, L500.2500 ####[facility] [address] [place], [address] MCV (RBC) [Entitic vol] 102.6 fL High 81-99 [facility] Comment on above: Performed By: #### L 100.0100, L500.2500 ####[facility] [address] [place], [address] Monocytes/100 WBC (Bld) 9.2 % Normal 0-10 [facility] Comment on above: Performed By: #### L 100.0100, L500.2500 ####[facility] [address] [place], [address] Neutrophils/100 WBC (Bld) 65.3 % Normal 47-70 [facility] Comment on above: Performed By: #### L 100.0100, L500.2500 ####[facility] [address] [place], [address] Nucleated RBC (Bld) [#/Vol] 0 10*3/uL Normal 0-5 [facility] Comment on above: Performed By: #### L 100.0100, L500.2500 ####[facility] [address] [place], [address] Platelet mean volume (Bld) [Entitic vol] 10.8 fL Normal 6.2-12.0 [facility] Comment on above: Performed By: #### L 100.0100, L500.2500 ####[facility] [address] [place], [address] Platelets (Bld) [#/Vol] 154 10*3/uL Normal 150-450 [facility] Comment on above: Performed By: #### L 100.0100, L500.2500 ####[facility] [address] [place], [address] RBC (Bld) [#/Vol] 3.51 10*6/uL Low 4.2-5.4 [facility] Comment on above: Performed By: #### L 100.0100, L500.2500 ####[facility] [address] [place], [address] RDW SD 49.7 fl High 35.1-43.9 [facility] Comment on above: Performed By: #### L 100.0100, L500.2500 ####[facility] [address] [place], [address] WBC (Bld) [#/Vol] 11.4 10*3/uL High 4.4-11.0 [facility] Comment on above: Performed By: #### L 100.0100, L500.2500 ####[facility] [address] [place], [address] CTA Chest W/WO Contraston CTA Chest W/WO Contrast Normal [facility] D-Dimer Quantitative (DVT/PE )on 12-29-2023 D-DIMER QUANT 2.44 FEU/ug/m Invalid Interpretation Code 0.27-0.49 [facility] Comment on above: Order Comment: CRITI LORAINE VALUE CALLED TO gabi de la fuente12/29/23 0933 Brigette Andino.RESULTS READ BACK BY same. Result Comment: D-Di alexandrea ELEVATED (>0.49): Additional studies and clinicalassessments are indicated to conclude diagnosis of:Deep Vein Thrombosis (DVT) or Pulmonary Embolism (PE) Performed By: #### L 300.8000 ####[facility] [address] [place], [address] Basic Metabolic Profile (BMP )on 12-27-2023 BUN/CRE 34.3 RATIO High 12-27 [facility] Comment on above: Performed By: #### L 500.2500, L100.0100 ####[facility] [address] [place], [address] CA,Total 8.3 mg/dL Low 8.5-10.1 [facility] Comment on above: Performed By: #### L 500.2500, L100.0100 ####[facility] [address] [place], [address] Chloride [Moles/Vol] 104 mmol/L Normal 98-107 [facility] Comment on above: Performed By: #### L 500.2500, L100.0100 ####[facility] [address] [place], [address] CO2 [Moles/Vol] 35.0 mmol/L High 21.0-32.0 [facility] Comment on above: Performed By: #### L 500.2500, L100.0100 ####[facility] [address] [place], [address] Creatinine [Mass/Vol] 0.61 mg/dL Normal 0.55-1.02 [facility] Comment on above: Result Comment: The validity of the calculated GFR GFRAA in patients over70 years has not been determined. Clinical correlation isessential. Performed By: #### L 500.2500, L100.0100 ####[facility] [address] [place], [address] ECRCL 152.78 ml/min Normal [facility] Comment on above: Performed By: #### L 500.2500, L100.0100 ####[facility] [address] [place], [address] EST GFR - AA 138 mL/min Normal >60 [facility] Comment on above: Result Comment: Afri can [place] GFR Calc Performed By: #### L 500.2500, L100.0100 ####[facility] [address] [place], [place], [address] GAP 0 Low 5-15 [facility] Comment on above: Performed By: #### L 500.2500, L100.0100 ####[facility] [address] [place], [address] GFR/1.73 sq M.predicted among non-blacks MDRD (S/P/Bld) [Vol rate/Area] 114 mL/min/{1.73_m2} Normal >60 [facility] Comment on above: Result Comment: Non- GFR Calc Performed By: #### L 500.2500, L100.0100 ####[facility] [address] [place], [address] Glucose [Mass/Vol] 93 mg/dL Normal 74-106 [facility] Comment on above: Performed By: #### L 500.2500, L100.0100 ####[facility] [address] [place], [address] Potassium [Moles/Vol] 4.2 mmol/L Normal 3.5-5.1 [facility] Comment on above: Performed By: #### L 500.2500, L100.0100 ####[facility] [address] [place], [address] Sodium [Moles/Vol] 139 mmol/L Normal 136-145 [facility] Comment on above: Performed By: #### L 500.2500, L100.0100 ####[facility] [address] [place], [address] Urea nitrogen [Mass/Vol] 21 mg/dL High 7-18 [facility] Comment on above: Performed By: #### L 500.2500, L100.0100 ####[facility] [address] [place], [address] CBC W/Diff, Automatedon 10-2 0-2024 Absolute Lymph 2.41 X10 3/uL Normal 0.83-4.51 [facility] Comment on above: Performed By: #### L 500.2500, L100.0100 ####[facility] [address] [place], [address] Absolute Neut 6.5 X10 3/uL Normal 2.0-7.7 [facility] Comment on above: Performed By: #### L 500.2500, L100.0100 ####[facility] [address] [place], [address] Basophils/100 WBC (Bld) 0.4 % Normal 0-1 [facility] Comment on above: Performed By: #### L 500.2500, L100.0100 ####[facility] [address] [place], [address] Eosinophils/100 WBC (Bld) 3.3 % Normal 0-5 [facility] Comment on above: Performed By: #### L 500.2500, L100.0100 ####[facility] [address] [place], [address] Erythrocyte distribution width (RBC) [Ratio] 13.3 % Normal 11.6-14.6 [facility] Comment on above: Performed By: #### L 500.2500, L100.0100 ####[facility] [address] [place], [address] Hematocrit (Bld) [Volume fraction] 37.8 % Normal 37-47 [facility] Comment on above: Performed By: #### L 500.2500, L100.0100 ####[facility] [address] [place], [address] Hemoglobin (Bld) [Mass/Vol] 11.8 g/dL Low 12.0-15.0 [facility] Comment on above: Performed By: #### L 500.2500, L100.0100 ####[facility] [address] [place], [address] IG% 1.000 High 0.0-0.9 [facility] Comment on above: Result Comment: IG% - Immature Granulocytes (promyelocytes, myelocytes andmetamyelocytes) > 1% indicates that a LEFT SHIFT is Present. Performed By: #### L 500.2500, L100.0100 ####[facility] [address] [place], [address] Lymphocytes/100 WBC (Bld) 23.1 % Normal 19-41 [facility] Comment on above: Performed By: #### L 500.2500, L100.0100 ####[facility] [address] [place], [address] MCH (RBC) [Entitic mass] 32.5 pg High 27.0-32.0 [facility] Comment on above: Performed By: #### L 500.2500, L100.0100 ####[facility] [address] [place], [address] MCHC (RBC) [Mass/Vol] 31.2 g/dL Low 32-36 [facility] Comment on above: Performed By: #### L 500.2500, L100.0100 ####[facility] [address] [place], [address] MCV (RBC) [Entitic vol] 104.1 fL High 81-99 [facility] Comment on above: Performed By: #### L 500.2500, L100.0100 ####[facility] [address] [place], [address] Monocytes/100 WBC (Bld) 10.2 % High 0-10 [facility] Comment on above: Performed By: #### L 500.2500, L100.0100 ####[facility] [address] [place], [address] Neutrophils/100 WBC (Bld) 62.0 % Normal 47-70 [facility] Comment on above: Performed By: #### L 500.2500, L100.0100 ####[facility] [address] [place], [address] Nucleated RBC (Bld) [#/Vol] 0 10*3/uL Normal 0-5 [facility] Comment on above: Performed By: #### L 500.2500, L100.0100 ####[facility] [address] [place], [address] Platelet mean volume (Bld) [Entitic vol] 11.2 fL Normal 6.2-12.0 [facility] Comment on above: Performed By: #### L 500.2500, L100.0100 ####[facility] [address] [place], [address] Platelets (Bld) [#/Vol] 142 10*3/uL Low 150-450 [facility] Comment on above: Performed By: #### L 500.2500, L100.0100 ####[facility] [address] [place], [address] RBC (Bld) [#/Vol] 3.63 10*6/uL Low 4.2-5.4 [facility] Comment on above: Performed By: #### L 500.2500, L100.0100 ####[facility] [address] [place], [address] RDW SD 50.2 fl High 35.1-43.9 [facility] Comment on above: Performed By: #### L 500.2500, L100.0100 ####[facility] [address] [place], [address] WBC (Bld) [#/Vol] 10.5 10*3/uL Normal 4.4-11.0 [facility] Comment on above: Performed By: #### L 500.2500, L100.0100 ####[facility] [address] [place], [address] Bedside Glucoseon 12-27-2023 FINGERSTICK GLU 73 mg/dL Low 74-106 [facility] Comment on above: Result Comment: ETHAN PRITCHETT OF PATIENT CARE PER NURSING PROTOCOL Performed By: #### L 501.080 ####[facility] [address] [place], [address] CBC W/Diff, Automatedon 12-08 Absolute Lymph 3.05 X10 3/uL Normal 0.83-4.51 [facility] Comment on above: Performed By: #### L 500.4050, L100.0100, L501.9520, L500.4100 ####[facility] [address] [place], [address] Absolute Neut 6.2 X10 3/uL Normal 2.0-7.7 [facility] Comment on above: Performed By: #### L 500.4050, L100.0100, L501.9520, L500.4100 ####[facility] [address] [place], [address] Basophils/100 WBC (Bld) 0.5 % Normal 0-1 [facility] Comment on above: Performed By: #### L 500.4050, L100.0100, L501.9520, L500.4100 ####[facility] [address] [place], [address] Eosinophils/100 WBC (Bld) 3.5 % Normal 0-5 [facility] Comment on above: Performed By: #### L 500.4050, L100.0100, L501.9520, L500.4100 ####[facility] [address] [place], [address] Erythrocyte distribution width (RBC) [Ratio] 13.4 % Normal 11.6-14.6 [facility] Comment on above: Performed By: #### L 500.4050, L100.0100, L501.9520, L500.4100 ####[facility] [address] [place], [address] Hematocrit (Bld) [Volume fraction] 39.7 % Normal 37-47 [facility] Comment on above: Performed By: #### L 500.4050, L100.0100, L501.9520, L500.4100 ####[facility] [address] [place], [address] Hemoglobin (Bld) [Mass/Vol] 12.2 g/dL Normal 12.0-15.0 [facility] Comment on above: Performed By: #### L 500.4050, L100.0100, L501.9520, L500.4100 ####[facility] [address] [place], [address] IG% 0.600 Normal 0.0-0.9 [facility] Comment on above: Result Comment: IG% - Immature Granulocytes (promyelocytes, myelocytes andmetamyelocytes) > 1% indicates that a LEFT SHIFT is Present. Performed By: #### L 500.4050, L100.0100, L501.9520, L500.4100 ####[facility] [address] [place], [address] Lymphocytes/100 WBC (Bld) 28.1 % Normal 19-41 [facility] Comment on above: Performed By: #### L 500.4050, L100.0100, L501.9520, L500.4100 ####[facility] [address] [place], [address] MCH (RBC) [Entitic mass] 31.8 pg Normal 27.0-32.0 [facility] Comment on above: Performed By: #### L 500.4050, L100.0100, L501.9520, L500.4100 ####[facility] [address] [place], [address] MCHC (RBC) [Mass/Vol] 30.7 g/dL Low 32-36 [facility] Comment on above: Performed By: #### L 500.4050, L100.0100, L501.9520, L500.4100 ####[facility] [address] [place], [address] MCV (RBC) [Entitic vol] 103.4 fL High 81-99 [facility] Comment on above: Performed By: #### L 500.4050, L100.0100, L501.9520, L500.4100 ####[facility] [address] [place], [address] Monocytes/100 WBC (Bld) 10.6 % High 0-10 [facility] Comment on above: Performed By: #### L 500.4050, L100.0100, L501.9520, L500.4100 ####[facility] [address] [place], [address] Neutrophils/100 WBC (Bld) 56.7 % Normal 47-70 [facility] Comment on above: Performed By: #### L 500.4050, L100.0100, L501.9520, L500.4100 ####[facility] [address] [place], [address] Nucleated RBC (Bld) [#/Vol] 0 10*3/uL Normal 0-5 [facility] Comment on above: Performed By: #### L 500.4050, L100.0100, L501.9520, L500.4100 ####[facility] [address] [place], [address] Platelet mean volume (Bld) [Entitic vol] 10.9 fL Normal 6.2-12.0 [facility] Comment on above: Performed By: #### L 500.4050, L100.0100, L501.9520, L500.4100 ####[facility] [address] [place], [address] Platelets (Bld) [#/Vol] 135 10*3/uL Low 150-450 [facility] Comment on above: Performed By: #### L 500.4050, L100.0100, L501.9520, L500.4100 ####[facility] [address] [place], [address] RBC (Bld) [#/Vol] 3.84 10*6/uL Low 4.2-5.4 [facility] Comment on above: Performed By: #### L 500.4050, L100.0100, L501.9520, L500.4100 ####[facility] [address] [place], [address] RDW SD 50.4 fl High 35.1-43.9 [facility] Comment on above: Performed By: #### L 500.4050, L100.0100, L501.9520, L500.4100 ####[facility] [address] [place], [address] WBC (Bld) [#/Vol] 10.9 10*3/uL Normal 4.4-11.0 [facility] Comment on above: Performed By: #### L 500.4050, L100.0100, L501.9520, L500.4100 ####[facility] [address] [place], [address] Comprehensive Metabolic Prof ilananda 12-27-2023 Albumin [Mass/Vol] 2.8 g/dL Low 3.2-5.0 [facility] Comment on above: Performed By: #### L 500.4050, L100.0100, L501.9520, L500.4100 ####[facility] [address] [place], [address] Albumin/Globulin [Mass ratio] 0.8 {ratio} Low 0.9-2.4 [facility] Comment on above: Performed By: #### L 500.4050, L100.0100, L501.9520, L500.4100 ####[facility] [address] [place], [address] ALK P 92 U/L Normal 45-117 [facility] Comment on above: Performed By: #### L 500.4050, L100.0100, L501.9520, L500.4100 ####[facility] [address] [place], [address] ALT [Catalytic activity/Vol] 92 U/L High 13-56 [facility] Comment on above: Performed By: #### L 500.4050, L100.0100, L501.9520, L500.4100 ####[facility] [address] [place], [address] AST [Catalytic activity/Vol] 76 U/L High 15-37 [facility] Comment on above: Performed By: #### L 500.4050, L100.0100, L501.9520, L500.4100 ####[facility] [address] [place], [address] Bilirubin [Mass/Vol] 0.30 mg/dL Normal 0.20-1.00 [facility] Comment on above: Result Comment: For patients on eltrombopag therapy, use of Dimension [place] TBIL is not recommended. Performed By: #### L 500.4050, L100.0100, L501.9520, L500.4100 ####[facility] [address] [place], [address] BUN/CRE 41.0 RATIO High 10-20 [facility] Comment on above: Performed By: #### L 500.4050, L100.0100, L501.9520, L500.4100 ####[facility] [address] [place], [address] CA,Total 8.1 mg/dL Low 8.5-10.1 [facility] Comment on above: Performed By: #### L 500.4050, L100.0100, L501.9520, L500.4100 ####[facility] [address] [place], [address] Chloride [Moles/Vol] 106 mmol/L Normal 98-107 [facility] Comment on above: Performed By: #### L 500.4050, L100.0100, L501.9520, L500.4100 ####[facility] [address] [place], [address] CO2 [Moles/Vol] 33.0 mmol/L High 21.0-32.0 [facility] Comment on above: Performed By: #### L 500.4050, L100.0100, L501.9520, L500.4100 ####[facility] [address] [place], [address] Creatinine [Mass/Vol] 0.54 mg/dL Low 0.55-1.02 [facility] Comment on above: Result Comment: The validity of the calculated GFR GFRAA in patients over70 years has not been determined. Clinical correlation isessential. Performed By: #### L 500.4050, L100.0100, L501.9520, L500.4100 ####[facility] [address] [place], [address] ECRCL 175.01 ml/min Normal [facility] Comment on above: Performed By: #### L 500.4050, L100.0100, L501.9520, L500.4100 ####[facility] [address] [place], [address] EST GFR - AA 161 mL/min Normal >60 [facility] Comment on above: Result Comment: Afri can [place] GFR Calc Performed By: #### L 500.4050, L100.0100, L501.9520, L500.4100 ####[facility] [address] [place], [address] GAP 1 Low 5-15 [facility] Comment on above: Performed By: #### L 500.4050, L100.0100, L501.9520, L500.4100 ####[facility] [address] [place], [address] GFR/1.73 sq M.predicted among non-blacks MDRD (S/P/Bld) [Vol rate/Area] 133 mL/min/{1.73_m2} Normal >60 [facility] Comment on above: Result Comment: Non- GFR Calc Performed By: #### L 500.4050, L100.0100, L501.9520, L500.4100 ####[facility] [address] [place], [address] Globulin (S) [Mass/Vol] 3.4 g/dL Normal 2.2-4.2 [facility] Comment on above: Performed By: #### L 500.4050, L100.0100, L501.9520, L500.4100 ####[facility] [address] [place], [address] Glucose [Mass/Vol] 118 mg/dL High 74-106 [facility] Comment on above: Result Comment: Fast ing Glucose result from 100 to 125 mg/dLsuggests IMPAIRED HOMEOSTASIS per A.D.A. criteria. Performed By: #### L 500.4050, L100.0100, L501.9520, L500.4100 ####[facility] [address] [place], [address] Potassium [Moles/Vol] 4.1 mmol/L Normal 3.5-5.1 [facility] Comment on above: Performed By: #### L 500.4050, L100.0100, L501.9520, L500.4100 ####[facility] [address] [place], [address] Sodium [Moles/Vol] 141 mmol/L Normal 136-145 [facility] Comment on above: Performed By: #### L 500.4050, L100.0100, L501.9520, L500.4100 ####[facility] [address] [place], [address] T PROT 6.2 g/dL Low 6.4-8.2 [facility] Comment on above: Performed By: #### L 500.4050, L100.0100, L501.9520, L500.4100 ####[facility] [address] [place], [address] Urea nitrogen [Mass/Vol] 22 mg/dL High 7-18 [facility] Comment on above: Performed By: #### L 500.4050, L100.0100, L501.9520, L500.4100 ####[facility] [address] [place], [address] Consultation - Cardiologyon 12-27-2023 Consultation - Cardiology Normal [facility] Echo Complete W/ Contraston 12-27-2023 Echo Complete W/ Contrast Normal [facility] L501.4020on 12-27-2023 TROPONIN-I HS 256 pg/mL Invalid Interpretation Code 3.0-54.0 [facility] Comment on above: Order Comment: 'TROP ' Serial specimen #1, #2 or #3: 1 Result Comment: Crit ical Result(s) Called at: 09:38:31 12/27/2023 by:Renu Villatoro to Allan. Results read back by same. Please Note: New Test Units and Gender Specific Reference Ranges. For more information see Policy Stat Procedure [place] High Sensitivity Troponin (TNIH) and attachments. Performed By: #### L 501.4020 ####[facility] [address] [place], [address] Lipid Profileon 12-27-2023 Cholesterol [Mass/Vol] 112 mg/dL Normal 200 [facility] Comment on above: Result Comment: <200 mg/dL Desirable 200-240 mg/dL Borderline >240 mg/dL High Risk Performed By: #### L 500.4050, L100.0100, L501.9520, L500.4100 ####[facility] [address] [place], [address] Cholesterol in HDL [Mass/Vol] 52 mg/dL Normal [facility] Comment on above: Result Comment: The drugs N-Acetylcysteine and Metamizole may falselydepress this assay. Reference Range HDL <40 mg/dL Low HDL Cholesterol HDL >or= 60 mg/dL High HDL Cholesterol Performed By: #### L 500.4050, L100.0100, L501.9520, L500.4100 ####[facility] [address] [place], [address] Cholesterol in LDL [Mass/Vol] 47 mg/dL Normal 0-130 [facility] Comment on above: Performed By: #### L 500.4050, L100.0100, L501.9520, L500.4100 ####[facility] [address] [place], [address] Cholesterol in VLDL [Mass/Vol] 13 mg/dL Normal 5-40 [facility] Comment on above: Performed By: #### L 500.4050, L100.0100, L501.9520, L500.4100 ####[facility] [address] [place], [address] Triglyceride [Mass/Vol] 63 mg/dL Normal [facility] Comment on above: Result Comment: The drugs N-Acetylcysteine and Metamizole may falselydepress this assay.Serum Triglycerides Reference Interval Normal <150 mg/dL Borderline high 150 - 199 mg/dL High 200 - 499 mg/dL Very High > or = 500 mg/dL Performed By: #### L 500.4050, L100.0100, L501.9520, L500.4100 ####[facility] [address] [place], [address] Partial Thromboplast Timeon 12-27-2023 aPTT Coag (Bld) [Time] 47.5 s High 24.1-36.2 [facility] Comment on above: Performed By: #### L 300.4310 ####[facility] [address] [place], [address] aPTT Coag (Bld) [Time] 95.2 s Invalid Interpretation Code 24.1-36.2 [facility] Comment on above: Result Comment: CRIT ICAL VALUE CALLED TO [id number] 0143 Teresa Cardenas.RESULTS READ BACK BY SAME. Performed By: #### L 300.4310 ####[facility] [address] [place], [address] Thyroid Stim Hormone (TSH)on 12-27-2023 TSH 2.840 uIU/mL Normal 0.358-3.740 [facility] Comment on above: Performed By: #### L 500.4050, L100.0100, L501.9520, L500.4100 ####[facility] [address] [place], [address] 12 Lead EKGon 12-26-2023 12 Lead EKG Normal [facility] BNP,B-Type NATRIURETIC PEPTI Christa 12-26-2023 Natriuretic peptide B (Bld) [Mass/Vol] 1051.3 pg/mL High 0-100 [facility] Comment on above: Performed By: #### L 100.0100, L501.4020, L503.6005, L500.4050, L503.6620 ####[facility] [address] [place], [address] CBC W/Diff, Automatedon 12-08 Absolute Lymph 2.25 X10 3/uL Normal 0.83-4.51 [facility] Comment on above: Performed By: #### L 100.0100, L501.4020, L503.6005, L500.4050, L503.6620 ####[facility] [address] [place], [address] Absolute Neut 8.0 X10 3/uL High 2.0-7.7 [facility] Comment on above: Performed By: #### L 100.0100, L501.4020, L503.6005, L500.4050, L503.6620 ####[facility] [address] [place], [address] Basophils/100 WBC (Bld) 0.5 % Normal 0-1 [facility] Comment on above: Performed By: #### L 100.0100, L501.4020, L503.6005, L500.4050, L503.6620 ####[facility] [address] [place], [address] Eosinophils/100 WBC (Bld) 1.1 % Normal 0-5 [facility] Comment on above: Performed By: #### L 100.0100, L501.4020, L503.6005, L500.4050, L503.6620 ####[facility] [address] [place], [address] Erythrocyte distribution width (RBC) [Ratio] 13.4 % Normal 11.6-14.6 [facility] Comment on above: Performed By: #### L 100.0100, L501.4020, L503.6005, L500.4050, L503.6620 ####[facility] [address] [place], [address] Hematocrit (Bld) [Volume fraction] 45.6 % Normal 37-47 [facility] Comment on above: Performed By: #### L 100.0100, L501.4020, L503.6005, L500.4050, L503.6620 ####[facility] [address] [place], [address] Hemoglobin (Bld) [Mass/Vol] 14.3 g/dL Normal 12.0-15.0 [facility] Comment on above: Performed By: #### L 100.0100, L501.4020, L503.6005, L500.4050, L503.6620 ####[facility] [address] [place], [address] IG% 0.600 Normal 0.0-0.9 [facility] Comment on above: Result Comment: IG% - Immature Granulocytes (promyelocytes, myelocytes andmetamyelocytes) > 1% indicates that a LEFT SHIFT is Present. Performed By: #### L 100.0100, L501.4020, L503.6005, L500.4050, L503.6620 ####[facility] [address] [place], [address] Lymphocytes/100 WBC (Bld) 19.1 % Normal 19-41 [facility] Comment on above: Performed By: #### L 100.0100, L501.4020, L503.6005, L500.4050, L503.6620 ####[facility] [address] [place], [address] MCH (RBC) [Entitic mass] 32.2 pg High 27.0-32.0 [facility] Comment on above: Performed By: #### L 100.0100, L501.4020, L503.6005, L500.4050, L503.6620 ####[facility] [address] [place], [place], [address] MCHC (RBC) [Mass/Vol] 31.4 g/dL Low 32-36 [facility] Comment on above: Performed By: #### L 100.0100, L501.4020, L503.6005, L500.4050, L503.6620 ####[facility] [address] [place], [address] MCV (RBC) [Entitic vol] 102.7 fL High 81-99 [facility] Comment on above: Performed By: #### L 100.0100, L501.4020, L503.6005, L500.4050, L503.6620 ####[facility] [address] [place], [address] Monocytes/100 WBC (Bld) 10.5 % High 0-10 [facility] Comment on above: Performed By: #### L 100.0100, L501.4020, L503.6005, L500.4050, L503.6620 ####[facility] [address] [place], [address] Neutrophils/100 WBC (Bld) 68.2 % Normal 47-70 [facility] Comment on above: Performed By: #### L 100.0100, L501.4020, L503.6005, L500.4050, L503.6620 ####[facility] [address] [place], [address] Nucleated RBC (Bld) [#/Vol] 0.2 10*3/uL Normal 0-5 [facility] Comment on above: Performed By: #### L 100.0100, L501.4020, L503.6005, L500.4050, L503.6620 ####[facility] [address] [place], [address] Platelet mean volume (Bld) [Entitic vol] 11.1 fL Normal 6.2-12.0 [facility] Comment on above: Performed By: #### L 100.0100, L501.4020, L503.6005, L500.4050, L503.6620 ####[facility] [address] [place], [address] Platelets (Bld) [#/Vol] 163 10*3/uL Normal 150-450 [facility] Comment on above: Performed By: #### L 100.0100, L501.4020, L503.6005, L500.4050, L503.6620 ####[facility] [address] [place], [address] RBC (Bld) [#/Vol] 4.44 10*6/uL Normal 4.2-5.4 [facility] Comment on above: Performed By: #### L 100.0100, L501.4020, L503.6005, L500.4050, L503.6620 ####[facility] [address] [place], [address] RDW SD 50.9 fl High 35.1-43.9 [facility] Comment on above: Performed By: #### L 100.0100, L501.4020, L503.6005, L500.4050, L503.6620 ####[facility] [address] [place], [address] WBC (Bld) [#/Vol] 11.8 10*3/uL High 4.4-11.0 [facility] Comment on above: Performed By: #### L 100.0100, L501.4020, L503.6005, L500.4050, L503.6620 ####[facility] [address] [place], [address] Chest PA and Lateralon 12-25 Chest PA and Lateral Normal [facility] Comprehensive Metabolic Prof ilon 12-26-2023 Albumin [Mass/Vol] 3.1 g/dL Low 3.2-5.0 [facility] Comment on above: Order Comment: 'TROP ' Serial specimen #1, #2 or #3: 1 Performed By: #### L 100.0100, L501.4020, L503.6005, L500.4050, L503.6620 ####[facility] [address] [place], [address] Albumin/Globulin [Mass ratio] 0.8 {ratio} Low 0.9-2.4 [facility] Comment on above: Order Comment: 'TROP ' Serial specimen #1, #2 or #3: 1 Performed By: #### L 100.0100, L501.4020, L503.6005, L500.4050, L503.6620 ####[facility] [address] [place], [address] ALK P 101 U/L Normal 45-117 [facility] Comment on above: Order Comment: 'TROP ' Serial specimen #1, #2 or #3: 1 Performed By: #### L 100.0100, L501.4020, L503.6005, L500.4050, L503.6620 ####[facility] [address] [place], [address] ALT [Catalytic activity/Vol] 65 U/L High 13-56 [facility] Comment on above: Order Comment: 'TROP ' Serial specimen #1, #2 or #3: 1 Performed By: #### L 100.0100, L501.4020, L503.6005, L500.4050, L503.6620 ####[facility] [address] [place], [address] AST [Catalytic activity/Vol] 69 U/L High 15-37 [facility] Comment on above: Order Comment: 'TROP ' Serial specimen #1, #2 or #3: 1 Result Comment: Mode rate Hemolysis, Result may be falsely increased. Performed By: #### L 100.0100, L501.4020, L503.6005, L500.4050, L503.6620 ####[facility] [address] [place], [address] Bilirubin [Mass/Vol] 0.30 mg/dL Normal 0.20-1.00 [facility] Comment on above: Order Comment: 'TROP ' Serial specimen #1, #2 or #3: 1 Result Comment: For patients on eltrombopag therapy, use of Dimension [place] TBIL is not recommended. Performed By: #### L 100.0100, L501.4020, L503.6005, L500.4050, L503.6620 ####[facility] [address] [place], [address] BUN/CRE 32.8 RATIO High 10-20 [facility] Comment on above: Order Comment: 'TROP ' Serial specimen #1, #2 or #3: 1 Performed By: #### L 100.0100, L501.4020, L503.6005, L500.4050, L503.6620 ####[facility] [address] [place], [address] CA,Total 8.6 mg/dL Normal 8.5-10.1 [facility] Comment on above: Order Comment: 'TROP ' Serial specimen #1, #2 or #3: 1 Performed By: #### L 100.0100, L501.4020, L503.6005, L500.4050, L503.6620 ####[facility] [address] [place], [address] Chloride [Moles/Vol] 108 mmol/L High 98-107 [facility] Comment on above: Order Comment: 'TROP ' Serial specimen #1, #2 or #3: 1 Performed By: #### L 100.0100, L501.4020, L503.6005, L500.4050, L503.6620 ####[facility] [address] [place], [address] CO2 [Moles/Vol] 30.0 mmol/L Normal 21.0-32.0 [facility] Comment on above: Order Comment: 'TROP ' Serial specimen #1, #2 or #3: 1 Performed By: #### L 100.0100, L501.4020, L503.6005, L500.4050, L503.6620 ####[facility] [address] [place], [address] Creatinine [Mass/Vol] 0.91 mg/dL Normal 0.55-1.02 [facility] Comment on above: Order Comment: 'TROP ' Serial specimen #1, #2 or #3: 1 Result Comment: The validity of the calculated GFR GFRAA in patients over70 years has not been determined. Clinical correlation isessential. Performed By: #### L 100.0100, L501.4020, L503.6005, L500.4050, L503.6620 ####[facility] [address] [place], [address] ECRCL 104.50 ml/min Normal [facility] Comment on above: Order Comment: 'TROP ' Serial specimen #1, #2 or #3: 1 Performed By: #### L 100.0100, L501.4020, L503.6005, L500.4050, L503.6620 ####[facility] [address] [place], [address] EST GFR - AA 87 mL/min Normal >60 [facility] Comment on above: Order Comment: 'TROP ' Serial specimen #1, #2 or #3: 1 Result Comment: Afri can [place] GFR Calc Performed By: #### L 100.0100, L501.4020, L503.6005, L500.4050, L503.6620 ####[facility] [address] [place], [address] GAP 3 Low 5-15 [facility] Comment on above: Order Comment: 'TROP ' Serial specimen #1, #2 or #3: 1 Performed By: #### L 100.0100, L501.4020, L503.6005, L500.4050, L503.6620 ####[facility] [address] [place], [address] GFR/1.73 sq M.predicted among non-blacks MDRD (S/P/Bld) [Vol rate/Area] 72 mL/min/{1.73_m2} Normal >60 [facility] Comment on above: Order Comment: 'TROP ' Serial specimen #1, #2 or #3: 1 Result Comment: Non- GFR Calc Performed By: #### L 100.0100, L501.4020, L503.6005, L500.4050, L503.6620 ####[facility] [address] [place], [address] Globulin (S) [Mass/Vol] 3.7 g/dL Normal 2.2-4.2 [facility] Comment on above: Order Comment: 'TROP ' Serial specimen #1, #2 or #3: 1 Performed By: #### L 100.0100, L501.4020, L503.6005, L500.4050, L503.6620 ####[facility] [address] [place], [address] Glucose [Mass/Vol] 99 mg/dL Normal 74-106 [facility] Comment on above: Order Comment: 'TROP ' Serial specimen #1, #2 or #3: 1 Performed By: #### L 100.0100, L501.4020, L503.6005, L500.4050, L503.6620 ####[facility] [address] [place], [address] Potassium [Moles/Vol] 5.4 mmol/L High 3.5-5.1 [facility] Comment on above: Order Comment: 'TROP ' Serial specimen #1, #2 or #3: 1 Result Comment: Mode rate Hemolysis, Result may be falsely increased. Performed By: #### L 100.0100, L501.4020, L503.6005, L500.4050, L503.6620 ####[facility] [address] [place], [address] Sodium [Moles/Vol] 140 mmol/L Normal 136-145 [facility] Comment on above: Order Comment: 'TROP ' Serial specimen #1, #2 or #3: 1 Performed By: #### L 100.0100, L501.4020, L503.6005, L500.4050, L503.6620 ####[facility] [address] [place], [address] T PROT 6.8 g/dL Normal 6.4-8.2 [facility] Comment on above: Order Comment: 'TROP ' Serial specimen #1, #2 or #3: 1 Performed By: #### L 100.0100, L501.4020, L503.6005, L500.4050, L503.6620 ####[facility] [address] [place], [address] Urea nitrogen [Mass/Vol] 30 mg/dL High 7-18 [facility] Comment on above: Order Comment: 'TROP ' Serial specimen #1, #2 or #3: 1 Performed By: #### L 100.0100, L501.4020, L503.6005, L500.4050, L503.6620 ####[facility] [address] [place], [address] Emergency Department Summary on 12-26-2023 Emergency Department Summary Normal [facility] H AND P Exam - Hospitaliston 12-26-2023 H&P Exam - Hospitalist Normal [facility] L501.4020on 12-26-2023 TROPONIN-I HS 771 pg/mL Invalid Interpretation Code 3.0-54.0 [facility] Comment on above: Order Comment: 'TROP ' Serial specimen #1, #2 or #3: 1 Result Comment: Crit ical Result(s) Called at: 18:57:41 12/26/2023 by:Tiffanie Patten to [facility]. Results read back by same. Please Note: New Test Units and Gender Specific Reference Ranges. For more information see Policy Stat Procedure [place] High Sensitivity Troponin (TNIH) and attachments. Performed By: #### L 100.0100, L501.4020, L503.6005, L500.4050, L503.6620 ####[facility] [address] [place], [address] Lactic Acidon 12-26-2023 Lactate [Moles/Vol] 1.3 mmol/L Normal 0.4-1.9 [facility] Comment on above: Order Comment: Y Performed By: #### L 100.0100, L501.4020, L503.6005, L500.4050, L503.6620 ####[facility] [address] [place], [address] M100.678on 12-26-2023 M100.678 Pending SARS-CoV-2 (COVID 19) Negative INFLUENZA A Negative INFLUENZA B Negative RSV PCR Negative Normal [facility] Comment on above: Performed By: #### M 100.678 ####[facility] [address] [place], [address] Magnesiumon 12-26-2023 Magnesium [Mass/Vol] 2.0 mg/dL Normal 1.6-2.6 [facility] Comment on above: Order Comment: Comme nts: may add to ED labs Result Comment: Mode rate Hemolysis, Result may be falsely increased. Performed By: #### L 509.7000, L300.3900, L501.5200 ####[facility] [address] [place], [address] Partial Thromboplast Timeon 12-26-2023 aPTT Coag (Bld) [Time] 25.0 s Normal 24.1-36.2 [facility] Comment on above: Performed By: #### L 300.3900, L300.4310 ####[facility] [address] [place], [address] Procalcitoninon 12-26-2023 Procalcitonin 0.12 ng/mL High 0.00-0.09 [facility] Comment on above: Result Comment: A pr ocalcitonin (PCT) level above 2.0 ng/mL on the first day of ICU admission is associated with a high risk for progression to severe sepsis and/or septic shock. A PCT level below 0.5 ng/mL on the first day of ICU admission is associated with a low risk for progression to severe and/or septic shock. Note: Concentrations <0.5 ng/mL do not exclude an infection on account of localized infections (without systemic signs) which can be associated with such low concentrations, or a systemic infection in its initial stages (<6 hours). Furthermore, increased procalcitonin can occur without infection. PCT concentrations between 0.5 and 2.0 ng/mL should be interpreted taking into account the patient's history. It is recommended to retest PCT within 6-24 hours if any concentrations <2 ng/mL are obtained. Performed By: #### L 509.7000, L300.3900, L501.5200 ####[facility] [address] [place], [address] Prothrombin Time w/INRon INR Coag (PPP) [Relative time] 1.1 {INR} Normal [facility] Comment on above: Performed By: #### L 300.3900, L300.4310 ####[facility] [address] [place], [address] PT Coag (PPP) [Time] 14.0 s Normal 11.7-14.9 [facility] Comment on above: Performed By: #### L 300.3900, L300.4310 ####[facility] [address] [place], [address] INR Normal [facility] Comment on above: Result Comment: DUPL ICATE, SEE SPECIMEN [id number] Performed By: #### L 509.7000, L300.3900, L501.5200 ####[facility] [address] [place], [address] PROTIME Normal 11.7-14.9 [facility] Comment on above: Result Comment: DUPL ICATE, SEE SPECIMEN [id number] Performed By: #### L 509.7000, L300.3900, L501.5200 ####[facility] [address] [place], [address] Venous Blood Gason 4 Blood Gas Type SATISH Normal [facility] Comment on above: Performed By: #### L 9000.0810 ####[facility] [address] [place], [address] CO2 [Moles/Vol] 32 mmol/L Normal 23-33 [facility] Comment on above: Performed By: #### L 9000.0810 ####[facility] [address] [place], [address] FI02 2.0 Normal [facility] Comment on above: Performed By: #### L 9000.0810 ####[facility] [address] [place], [address] HCO3 (Bld) [Moles/Vol] 30 mmol/L High 22-26 [facility] Comment on above: Performed By: #### L 9000.0810 ####[facility] [address] [place], [place], [address] O2 Delivery Dev Cannula Normal [facility] Comment on above: Performed By: #### L 9000.0810 ####[facility] [address] [place], [address] SITE Not entered Normal [facility] Comment on above: Performed By: #### L 9000.0810 ####[facility] [address] [place], [address] VBG BE 3 mmol/L Normal -1.0-3.5 [facility] Comment on above: Performed By: #### L 9000.0810 ####[facility] [address] [place], [address] VBG pCO2 68.2 mmHg High 41-51 [facility] Comment on above: Performed By: #### L 9000.0810 ####[facility] [address] [place], [address] VBG pH 7.25 Low 7.32-7.42 [facility] Comment on above: Performed By: #### L 9000.0810 ####[facility] [address] [place], [address] VBG PO2 28 mmHg Normal 25-40 [facility] Comment on above: Performed By: #### L 9000.0810 ####[facility] [address] [place], [address] VBG SO2 42 Low 50-70 [facility] Comment on above: Performed By: #### L 9000.0810 ####[facility] [address] [place], [place], [address] [facility] SIA ABDUL ([id number]) 1980 F Date Time Provider Department 12/25/23 MARILEE THAKUR During your visit today, we recorded the following information about you: Annie Brand RN 12/25/2023 4:30 PM Addendum Enrique, nurse @ [facility] calling to let provider know patient weighed 291.1 # this morning. She says patient does not have increase in leg edema nor shortness of breath. Last weight reported was 283# on 12/17/23. Enrique states patient is currently taking Lasix 40 mg daily and Potassium 20 mEq daily. Patient was in [facility] ER on 12/21/23 with SOB. Patient was in [facility] ER again on 12/23/23 for viral gastroenteritis. Patient scheduled for ER F/U with PCP on 01/02/24. RODRÍGUEZ Wang Joy, APRN.MANAGER [employer]EL 12/26/2023 11:41 AM Signed As previous message - she needs seen earlier then scheduled. Thank you Mika Kaplan APRN.MANAGER [employer] María Avila MA 12/26/2023 12:36 PM Signed Left message for return call. Allergies As of Date: 12/25/2023 Noted Allergy Reaction BEE STING 02/28/2023 10 - Anaphylaxis DILANTIN (PHENYTOIN SODIUM EXTEND*01/28/2006 Date Reviewed: 11/18/2023 Reviewed by: Aaliyah Gonzalez MA - Fully Assessed Reason for Visit: Patient Update [1234] Prescriptions as of 12/26/2023 - furosemide (LASIX) 40 mg tablet Take [...] mouth once daily. - multivitamin-ferrous fumarate-folic acid (CERTAVITE-ANTIOXIDANT ) Take 1 tablet by mouth once daily. - fluticasone (FLONASE) 50 mcg/actuation nasal spray INSTILL 2 SPRAYS IN EACH NOSTRIL DAILY - Ogznn-8-QRX-EPA-Fish Oil 1,000 mg (120 mg-180 mg) cap [...] 4pm Dx:Q87.1 Problem List As Of Date 12/25/2023 Noted Resolved Other malaise and fatigue [R53.81, [...] 12/07/2015 Vitamin D deficiency [E55.9] 11/05/2011 Mental sta (more content not included)... Normal [facility] CBC W/Diff, Automatedon 10-1 Absolute Lymph 2.11 X10 3/uL Normal 0.83-4.51 [facility] Comment on above: Performed By: #### L 500.4050, L100.0100 ####[facility] [address] [place], [place], [address] Absolute Neut 4.8 X10 3/uL Normal 2.0-7.7 [facility] Comment on above: Performed By: #### L 500.4050, L100.0100 ####[facility] [address] [place], [address] Basophils/100 WBC (Bld) 0.4 % Normal 0-1 [facility] Comment on above: Performed By: #### L 500.4050, L100.0100 ####[facility] [address] [place], [address] Eosinophils/100 WBC (Bld) 3.2 % Normal 0-5 [facility] Comment on above: Performed By: #### L 500.4050, L100.0100 ####[facility] [address] [place], [address] Erythrocyte distribution width (RBC) [Ratio] 13.4 % Normal 11.6-14.6 [facility] Comment on above: Performed By: #### L 500.4050, L100.0100 ####[facility] [address] [place], [address] Hematocrit (Bld) [Volume fraction] 45.6 % Normal 37-47 [facility] Comment on above: Performed By: #### L 500.4050, L100.0100 ####[facility] [address] [place], [address] Hemoglobin (Bld) [Mass/Vol] 13.5 g/dL Normal 12.0-15.0 [facility] Comment on above: Performed By: #### L 500.4050, L100.0100 ####[facility] [address] [place], [address] IG% 0.200 Normal 0.0-0.9 [facility] Comment on above: Result Comment: IG% - Immature Granulocytes (promyelocytes, myelocytes andmetamyelocytes) > 1% indicates that a LEFT SHIFT is Present. Performed By: #### L 500.4050, L100.0100 ####[facility] [address] [place], [address] Lymphocytes/100 WBC (Bld) 24.9 % Normal 19-41 [facility] Comment on above: Performed By: #### L 500.4050, L100.0100 ####[facility] [address] [place], [address] MCH (RBC) [Entitic mass] 30.6 pg Normal 27.0-32.0 [facility] Comment on above: Performed By: #### L 500.4050, L100.0100 ####[facility] [address] [place], [address] MCHC (RBC) [Mass/Vol] 29.6 g/dL Low 32-36 [facility] Comment on above: Performed By: #### L 500.4050, L100.0100 ####[facility] [address] [place], [address] MCV (RBC) [Entitic vol] 103.4 fL High 81-99 [facility] Comment on above: Performed By: #### L 500.4050, L100.0100 ####[facility] [address] [place], [address] Monocytes/100 WBC (Bld) 14.5 % High 0-10 [facility] Comment on above: Performed By: #### L 500.4050, L100.0100 ####[facility] [address] [place], [address] Neutrophils/100 WBC (Bld) 56.8 % Normal 47-70 [facility] Comment on above: Performed By: #### L 500.4050, L100.0100 ####[facility] [address] [place], [address] Nucleated RBC (Bld) [#/Vol] 0 10*3/uL Normal 0-5 [facility] Comment on above: Performed By: #### L 500.4050, L100.0100 ####[facility] [address] [place], [address] Platelet mean volume (Bld) [Entitic vol] 10.6 fL Normal 6.2-12.0 [facility] Comment on above: Performed By: #### L 500.4050, L100.0100 ####[facility] [address] [place], [address] Platelets (Bld) [#/Vol] 176 10*3/uL Normal 150-450 [facility] Comment on above: Performed By: #### L 500.4050, L100.0100 ####[facility] [address] [place], [address] RBC (Bld) [#/Vol] 4.41 10*6/uL Normal 4.2-5.4 [facility] Comment on above: Performed By: #### L 500.4050, L100.0100 ####[facility] [address] [place], [address] RDW SD 51.3 fl High 35.1-43.9 [facility] Comment on above: Performed By: #### L 500.4050, L100.0100 ####[facility] [address] [place], [address] WBC (Bld) [#/Vol] 8.5 10*3/uL Normal 4.4-11.0 [facility] Comment on above: Performed By: #### L 500.4050, L100.0100 ####[facility] [address] [place], [address] Comprehensive Metabolic Prof [facility] 12-23-2023 Albumin [Mass/Vol] 3.3 g/dL Normal 3.2-5.0 [facility] Comment on above: Performed By: #### L 500.4050, L100.0100 ####[facility] [address] [place], [address] Albumin/Globulin [Mass ratio] 0.8 {ratio} Low 0.9-2.4 [facility] Comment on above: Performed By: #### L 500.4050, L100.0100 ####[facility] [address] [place], [address] ALK P 98 U/L Normal 45-117 [facility] Comment on above: Performed By: #### L 500.4050, L100.0100 ####[facility] [address] [place], [address] ALT [Catalytic activity/Vol] 27 U/L Normal 13-56 [facility] Comment on above: Performed By: #### L 500.4050, L100.0100 ####[facility] [address] [place], [address] AST [Catalytic activity/Vol] 26 U/L Normal 15-37 [facility] Comment on above: Result Comment: Mode rate Hemolysis, Result may be falsely increased. Performed By: #### L 500.4050, L100.0100 ####[facility] [address] [place], [address] Bilirubin [Mass/Vol] 0.50 mg/dL Normal 0.20-1.00 [facility] Comment on above: Result Comment: For patients on eltrombopag therapy, use of Dimension [place] TBIL is not recommended. Performed By: #### L 500.4050, L100.0100 ####[facility] [address] [place], [address] BUN/CRE 33.1 RATIO High 10-20 [facility] Comment on above: Performed By: #### L 500.4050, L100.0100 ####[facility] [address] [place], [address] CA,Total 9.6 mg/dL Normal 8.5-10.1 [facility] Comment on above: Performed By: #### L 500.4050, L100.0100 ####[facility] [address] [place], [address] Chloride [Moles/Vol] 104 mmol/L Normal 98-107 [facility] Comment on above: Performed By: #### L 500.4050, L100.0100 ####[facility] [address] [place], [address] CO2 [Moles/Vol] 32.0 mmol/L Normal 21.0-32.0 [facility] Comment on above: Performed By: #### L 500.4050, L100.0100 ####[facility] [address] [place], [address] Creatinine [Mass/Vol] 0.60 mg/dL Normal 0.55-1.02 [facility] Comment on above: Result Comment: The validity of the calculated GFR GFRAA in patients over70 years has not been determined. Clinical correlation isessential. Performed By: #### L 500.4050, L100.0100 ####[facility] [address] [place], [address] ECRCL 156.70 ml/min Normal [facility] Comment on above: Performed By: #### L 500.4050, L100.0100 ####[facility] [address] [place], [address] EST GFR - AA 140 mL/min Normal >60 [facility] Comment on above: Result Comment: Afri can [place] GFR Calc Performed By: #### L 500.4050, L100.0100 ####[facility] [address] [place], [address] GAP 2 Low 5-15 [facility] Comment on above: Performed By: #### L 500.4050, L100.0100 ####[facility] [address] [place], [address] GFR/1.73 sq M.predicted among non-blacks MDRD (S/P/Bld) [Vol rate/Area] 116 mL/min/{1.73_m2} Normal >60 [facility] Comment on above: Result Comment: Non- GFR Calc Performed By: #### L 500.4050, L100.0100 ####[facility] [address] [place], [address] Globulin (S) [Mass/Vol] 4.1 g/dL Normal 2.2-4.2 [facility] Comment on above: Performed By: #### L 500.4050, L100.0100 ####[facility] [address] [place], [address] Glucose [Mass/Vol] 88 mg/dL Normal 74-106 [facility] Comment on above: Performed By: #### L 500.4050, L100.0100 ####[facility] [address] [place], [address] Potassium [Moles/Vol] 4.6 mmol/L Normal 3.5-5.1 [facility] Comment on above: Result Comment: Mode rate Hemolysis, Result may be falsely increased. Performed By: #### L 500.4050, L100.0100 ####[facility] [address] [place], [address] Sodium [Moles/Vol] 138 mmol/L Normal 136-145 [facility] Comment on above: Performed By: #### L 500.4050, L100.0100 ####[facility] [address] [place], [address] T PROT 7.4 g/dL Normal 6.4-8.2 [facility] Comment on above: Performed By: #### L 500.4050, L100.0100 ####[facility] [address] [place], [address] Urea nitrogen [Mass/Vol] 20 mg/dL High 7-18 [facility] Comment on above: Performed By: #### L 500.4050, L100.0100 ####[facility] [address] [place], [address] Emergency Department Summary on 12-23-2023 [facility]INTMWS[facility] SIA ABDUL ([id number]) 1980 F Date Time Provider Department 12/22/23 MARILEE THAKUR INTMWS During your visit today, we recorded the following information about you: Annie Brand RN 12/22/2023 1:33 PM Signed Pharmacist @ [facility] calling to clarify orders for [...] Please review and advise. RODRÍGUEZ Lopez Joy, APRN.MANAGER HOTEL 12/22/2023 1:41 PM Signed She is supposed to be taking both short term. Is there a way to get her in earlier then in 10 days? Thank you Mika Kaplan APRN.MANAGER HOTEL María Avila MA 12/22/2023 1:49 PM Signed Pharmacist notified. Allergies As of Date: 12/22/2023 Noted Allergy Reaction BEE STING 02/28/2023 10 - Anaphylaxis DILANTIN (PHENYTOIN SODIUM EXTEND*01/28/2006 Date Reviewed: 11/18/2023 Reviewed by: Lisa, Aaliyah L, MA - Fully Assessed Reason for Visit: [...] mouth once daily. - multivitamin-ferrous fumarate-folic acid (CERTAVITE-ANTIOXIDANT ) Take 1 tablet by mouth once daily. - fluticasone (FLONASE) 50 mcg/actuation nasal spray INSTILL 2 SPRAYS IN EACH NOSTRIL DAILY - Ecqzi-0-CVY-EPA-Fish Oil 1,000 mg (120 mg-180 mg) cap [...] (more content not included)... Normal [facility] .Auto Diffon 12-21-2023 Basophil, Absolute 0.0 10 3/mcL Normal 0.0-0.2 [facility] Comment on above: Performed By: #### C BC, ANEU, GFR, PBNP, BMP, TROPHS, MG, MDW, ADIFF #### [address] [address] Basophils/100 WBC (Bld) 0.3 % Normal 0.0-2.5 [facility] Comment on above: Performed By: #### C BC, ANEU, GFR, PBNP, BMP, TROPHS, MG, MDW, ADIFF #### [address] [address] Eosinophil, Absolute 0.2 10 3/mcL Normal 0.0-0.7 [facility] Comment on above: Performed By: #### C BC, ANEU, GFR, PBNP, BMP, TROPHS, MG, MDW, ADIFF #### [address] [address] Eosinophils/100 WBC (Bld) 1.9 % Normal 0.0-7.0 [facility] Comment on above: Performed By: #### C BC, ANEU, GFR, PBNP, BMP, TROPHS, MG, MDW, ADIFF #### [address] [address] Lymphocyte, Absolute 2.0 10 3/mcL Normal 0.9-4.3 [facility] Comment on above: Performed By: #### C BC, ANEU, GFR, PBNP, BMP, TROPHS, MG, MDW, ADIFF #### [address] [address] Lymphocytes/100 WBC (Bld) 17.4 % Low 20.0-40.0 [facility] Comment on above: Performed By: #### C BC, ANEU, GFR, PBNP, BMP, TROPHS, MG, MDW, ADIFF #### [address] [address] Monocyte, Absolute 1.2 10 3/mcL Normal 0.1-1.4 [facility] Comment on above: Performed By: #### C BC, ANEU, GFR, PBNP, BMP, TROPHS, MG, MDW, ADIFF #### [address] [address] Monocytes/100 WBC (Bld) 10.5 % Normal 2.0-13.0 [facility] Comment on above: Performed By: #### C BC, ANEU, GFR, PBNP, BMP, TROPHS, MG, MDW, ADIFF #### [address] [address] Neutrophils/100 WBC (Bld) 69.9 % Normal 50.0-75.0 [facility] Comment on above: Performed By: #### C BC, ANEU, GFR, PBNP, BMP, TROPHS, MG, MDW, ADIFF #### [address] [address] .GFRon 12-21-2023 GFR 169 ml/min/1.73sqm Normal [facility] Comment on above: Result Comment: GFR Population [...] meters Performed By: #### C BC, ANEU, GFR, PBNP, BMP, TROPHS, MG, MDW, ADIFF #### [address] [address] GFR Non- 139 ml/min/1.73sqm Normal [facility] Comment on above: Result Comment: GFR Population [...] meters Performed By: #### C BC, ANEU, GFR, PBNP, BMP, TROPHS, MG, MDW, ADIFF #### [address] [address] .MDWon 12-21-2023 Monocyte Distribution Width 20.26 High 0.00-20.00 [facility] Comment on above: Result Comment: For adults in ED, MDW>20.0 may be associated with a higher risk of sepsis during the first 12hrs of hospital admission Performed By: #### C BC, ANEU, GFR, PBNP, BMP, TROPHS, MG, MDW, ADIFF #### [address] [address] .NEUABSon 12-21-2023 Neutrophil, Absolute 8.1 10 3/mcL Normal 2.3-8.1 [facility] Comment on above: Performed By: #### C BC, ANEU, GFR, PBNP, BMP, TROPHS, MG, MDW, ADIFF #### [address] [place], [place] [address] BMPon 12-21-2023 BUN/Creatinine Ratio 31 ratio High 7-27 [facility] Comment on above: Performed By: #### C BC, ANEU, GFR, PBNP, BMP, TROPHS, MG, MDW, ADIFF #### [address] [place], [place] [address] Calcium [Mass/Vol] 9.1 mg/dL Normal 8.4-10.2 [facility] Comment on above: Performed By: #### C BC, ANEU, GFR, PBNP, BMP, TROPHS, MG, MDW, ADIFF #### [address] [address] Chloride [Moles/Vol] 104 mmol/L Normal 98-107 [facility] Comment on above: Performed By: #### C BC, ANEU, GFR, PBNP, BMP, TROPHS, MG, MDW, ADIFF #### [address] [address] CO2 [Moles/Vol] 34 mmol/L High 22-29 [facility] Comment on above: Performed By: #### C BC, ANEU, GFR, PBNP, BMP, TROPHS, MG, MDW, ADIFF #### [address] [address] Creatinine [Mass/Vol] 0.49 mg/dL Low 0.55-1.02 [facility] Comment on above: Result Comment: Test ing performed on Siemens Dimension EXL analyzer using a modified kinetic Melanie technique. Performed By: #### C BC, ANEU, GFR, PBNP, BMP, TROPHS, MG, MDW, ADIFF #### [address] [address] Electrolyte Balance 1.0 mEq/L Low 4.0-15.0 [facility] Comment on above: Performed By: #### C BC, ANEU, GFR, PBNP, BMP, TROPHS, MG, MDW, ADIFF #### [address] [address] Glucose [Mass/Vol] 96 mg/dL Normal 70-105 [facility] Comment on above: Performed By: #### C BC, ANEU, GFR, PBNP, BMP, TROPHS, MG, MDW, ADIFF #### [address] [address] Potassium [Moles/Vol] 4.7 mmol/L Normal 3.5-5.1 [facility] Comment on above: Performed By: #### C BC, ANEU, GFR, PBNP, BMP, TROPHS, MG, MDW, ADIFF #### [place] [address] Sodium [Moles/Vol] 139 mmol/L Normal 136-145 [facility] Comment on above: Performed By: #### C BC, ANEU, GFR, PBNP, BMP, TROPHS, MG, MDW, ADIFF #### [place] [address] Urea nitrogen [Mass/Vol] 15 mg/dL Normal 7-18 [facility] Comment on above: Performed By: #### C BC, ANEU, GFR, PBNP, BMP, TROPHS, MG, MDW, ADIFF #### [place] [address] CBCon 12-21-2023 Erythrocyte distribution width (RBC) [Ratio] 14.4 % Normal 11.5-15.5 [facility] Comment on above: Performed By: #### C BC, ANEU, GFR, PBNP, BMP, TROPHS, MG, MDW, ADIFF #### [place] [address] Hematocrit (Bld) [Volume fraction] 39.3 % Normal 34.0-46.0 [facility] Comment on above: Performed By: #### C BC, ANEU, GFR, PBNP, BMP, TROPHS, MG, MDW, ADIFF #### [place] [address] Hgb 12.6 G/dL Normal 12.0-16.0 [facility] Comment on above: Performed By: #### C BC, ANEU, GFR, PBNP, BMP, TROPHS, MG, MDW, ADIFF #### [place] [address] MCH (RBC) [Entitic mass] 32.2 pg Normal 27.0-33.0 [facility] Comment on above: Performed By: #### C BC, ANEU, GFR, PBNP, BMP, TROPHS, MG, MDW, ADIFF #### [address] [address] MCHC 32.1 G/dL Normal 32.0-36.0 [facility] Comment on above: Performed By: #### C BC, ANEU, GFR, PBNP, BMP, TROPHS, MG, MDW, ADIFF #### [address] [address] MCV (RBC) [Entitic vol] 100.2 fL High 80.0-99.0 [facility] Comment on above: Performed By: #### C BC, ANEU, GFR, PBNP, BMP, TROPHS, MG, MDW, ADIFF #### [address] [address] Platelet 147 10 3/mcL Low 150-450 [facility] Comment on above: Performed By: #### C BC, ANEU, GFR, PBNP, BMP, TROPHS, MG, MDW, ADIFF #### [address] [address] Platelet mean volume (Bld) [Entitic vol] 8.8 fL Normal 6.6-10.5 [facility] Comment on above: Performed By: #### C BC, ANEU, GFR, PBNP, BMP, TROPHS, MG, MDW, ADIFF #### [address] [address] RBC 3.92 10 6/mcL Low 4.10-5.30 [facility] Comment on above: Performed By: #### C BC, ANEU, GFR, PBNP, BMP, TROPHS, MG, MDW, ADIFF #### [address] [address] WBC 11.6 10 3/mcL High 4.5-10.8 [facility] Comment on above: Performed By: #### C BC, ANEU, GFR, PBNP, BMP, TROPHS, MG, MDW, ADIFF #### [address] [address] LABORATORYOrdered By: SYSTEM SYSTEM on 12-21-2023 Troponin I.cardiac DL <= 0.01 ng/mL [Mass/Vol] 22 ng/L Normal 0 - 51 ng/L AO ADM SS Comment on above: Interpretive Data: H igh Sensitive Troponin I Reference Ranges: Female: 0-51 ng/L Male: 0-76 ng/L Testing performed on [employer] using a homogeneous sandwich chemiluminescent immunoassay based on [employer] technology. Basophils (Bld) [#/Vol] 0.0 103/mcL Normal [...] ng/L Male: 0-76 ng/L Testing performed on [employer] using a homogeneous sandwich chemiluminescent immunoassay based on [employer] technology. Urea nitrogen [Mass/Vol] 15 mg/dL Normal 7 - 18 mg/dL AO ADM SS Urea nitrogen/Creatinine [Mass ratio] 31 ratio High 7 - 27 ratio AO ADM SS WBC (Bld) [#/Vol] 11.6 103/mcL High 4.5 - 10.8 10^3/mcL AO Workflow SS MGon 12-21-2023 Magnesium [Mass/Vol] 1.9 mg/dL Normal 1.8-2.4 [facility] Comment on above: Performed By: #### C BC, ANEU, GFR, PBNP, BMP, TROPHS, MG, W, ADIFF #### [address] [address] PBNPon 12-21-2023 Natriuretic peptide B (Bld) [Mass/Vol] 449 pg/mL High 0-125 [facility] Comment on above: Result Comment: NT-p roBNP results of less than 300 pg/mL effectively rules out acute congestive heart failure with 99% negative predictive value. Performed By: #### C BC, ANEU, GFR, PBNP, BMP, TROPHS, MG, KYLIE, ADIFF #### [address] [address] [facility] 12-21-2023 High Sensitivity Troponin I 22 ng/L Normal 0-51 [facility] Comment on above: Result Comment: High Sensitive Troponin I Reference Ranges: Female: 0-51 ng/L Male: 0-76 ng/L Testing performed on [employer] using a homogeneous sandwich chemiluminescent immunoassay based on [employer] technology. Performed By: #### C BC, ANEU, GFR, PBNP, BMP, TROPHS, MG, KYLIE, ADIFF #### [address] [address] High Sensitivity Troponin I 20 ng/L Normal 0-51 [facility] Comment on above: Result Comment: High Sensitive Troponin I Reference Ranges: Female: 0-51 ng/L Male: 0-76 ng/L Testing performed on [employer] EXL using a homogeneous sandwich chemiluminescent immunoassay based on [employer] technology. Performed By: #### C BC, ANEU, GFR, PBNP, BMP, TROPHS, MG, KYLIE, ADIFF #### [address] [address] XR CHEST 1 VIEWon 12-21-2023 XR CHEST [...] the resident's findings and interpretation. Interpreted by: Lori Wesley Preliminary Report By: Matt Rodriguez Electronically signed By Lori Wesley Dictated Date: 12/21/2023 3:23:59 PM Prelim Date: 12/21/2023 3:26:53 PM Sign Date: 12/21/2023 3:28:25 PM Ordering Provider: TABATHA PAGE [facility]18[facility]2023 [facility]Humouno[facility] SIA ABDUL ([id number]) 1980 F Date Time Provider Department 12/18/23 MARILEE THAKUR [facility] During your visit today, we recorded the following information about you: Erendira Stewart LPN 12/18/2023 2:27 PM Signed Shobha from [facility] there were medications sent for pt yesterday Rah Turner, RN 12/22/2023 9:49 AM Signed [facility]- phoned to report patient was seen in [facility] ER on Friday12-21-23, with SOB. ER gave patient IV lasix and sent patient home. Reports patient is having stress in senior living with another housemate, which is causing patient anxiety, and this was part of the problem, but patient has also been having problems with edema. This nurse phoned Shobha- caregiver @ [facility] to schedule ER f/u appt, and noted in 12-17-23 encounter, Print Line Supervisor had ordered potassium 20 mg daily, and lasix 40 mg daily, until patient is seen. Asked Shobha how patient is doing on this dose. Shobha reports patient never received the medication, b/c it was sent to the wrong pharmacy, should have been sent to [facility]. Shobha did call pcp to report this (see message below), but never received the medication. Reports even if the medication is sent to [facility] today- they still will not receive it until Fri. Pended medications for [facility]. Please send geovanny. Shobha reports patient is doing fine today- and they are working on the problem with the housemate. Scheduled patient hosp f/u appt for 01-01-24. Mika Kaplan APRN.OBED 12/22/2023 10:58 AM Signed Prescription Resent. Thank you Mika Kaplan APRN.Teresa Foster RN 12/22/2023 11:35 AM [...] mouth once daily. - multivitamin-ferrous fumarate-folic acid (CERTAVITE-ANTIOXIDANT ) Take 1 tablet by mouth once daily. - fluticasone (FLONASE) 50 mcg/actuation nasal spray INSTILL 2 SPRAYS IN EACH NOSTRIL DAILY - Ztktb-3-MUN-EPA-Fish Oil 1,000 mg (120 mg-180 mg) cap [...] Each once (more content not included)... [facility] (INTMWS[facility] CHANTELLSIA Grimm ([id number]) 1980 F Date Time Provider Department 12/17/23 MARILEE THAKUR INTMWS During your visit today, we recorded the following information about you: Rah Turner RN 12/17/2023 9:13 AM Addendum Clarence- [facility]- phoned with patient update: Reports pcp [...] Please advise and phone Clarence with reply: [phone] Mika Kaplan APRN.OBED 12/17/2023 1:23 PM Signed Patient needs to be seen to evaluate why this is continuing to occur. Can increase lasix to 40mg and the potassium to 20mg both daily until seen. Thank you Mika Kaplan APRN.Lillie Adame RN 12/17/2023 2:27 PM Signed Clarence called and notified of below , Clarence voices understanding. Clarence is going to pass this along to senior living. Clarence asking if new scripts can be sent to [facility]? Please review and advise, RODRÍGUEZ Carnes Joy, APRN.OBED 12/17/2023 4:43 PM Signed New scripts sent Mika Kaplan APRN.OBED Allergies As of Date: 12/17/2023 [...] mouth once daily. - multivitamin-ferrous fumarate-folic acid (CERTAVITE-ANTIOXIDANT ) Take 1 tablet by mouth once daily. - fluticasone (FLONASE) 50 mcg/actuation nasal spray INSTILL 2 SPRAYS IN EACH NOSTRIL DAILY - Pjbos-2-VSH-EPA-Fish Oil 1,000 mg (120 mg-180 mg) cap [...] (more content not included)... Normal [facility] 12-12-2023 [facility] Telephone (INTMWS) SIA ABDUL ([id number]) 1980 F Date Time Provider Department 12/12/23 MARILEE THAKUR During your visit today, we recorded the following information about you: Candelaria Ball LPN 12/12/2023 8:10 AM Signed Clarence from [facility] calling patient weight this morning was 286 pounds. She has increased edema aaron legs, slightly unsteady gait, vitals good, slight shortness of breath with exertion. He said her Furosemide 20 mg one tablet every other day, wearing her compression stockings, using her lymphedema cuffs. Please advise Mika Kaplan APRN.OBED 12/12/2023 12:39 PM Signed Hurt current lasix and potassium dose and give Lasix 40mg daily for the next 3 days and potassium 20meq for the next 3 days as well. Then restart current dose. Follow up if no improvement. Thank you Mika Kaplan APRN.Ashley Luna LPN 12/12/2023 1:08 PM [...] mouth once daily. - multivitamin-ferrous fumarate-folic acid (CERTAVITE-ANTIOXIDANT ) Take 1 tablet by mouth once daily. - fluticasone (FLONASE) 50 mcg/actuation nasal spray INSTILL 2 SPRAYS IN EACH NOSTRIL DAILY - Abgsm-6-XNP-EPA-Fish Oil 1,000 mg (120 mg-180 mg) cap [...] knee, le (more content not included)... Normal [facility] 12-05-2023 [facility] Telephone (INTMWS) SIA ABDUL ([id number]) 1980 F Date Time Provider Department 12/05/23 MARILEE THAKUR INTWS During your visit today, we recorded the following information about you: Candelaria Ball LPN 12/05/2023 9:23 AM Signed Clarence from [facility] calling time for recert retirement services. Patient senior living was purchased by another company, nurses will be there more. Patient will be weighed once weekly and log kept to bring to appts. Patient is taking her second antibiotic for cellulitis. Please advise Marilee Thakur MD 12/05/2023 7:28 PM Signed Noted, verbal ok for the same Regards, Marilee Reyes LacieJORDAN 12/08/2023 8:08 AM Signed Called and updated Clarence, voiced understanding. Lacie Reyes LPN December 08, 2023 8:08 AM Allergies As of Date: 12/05/2023 Noted Allergy Reaction BEE STING 02/28/2023 10 - Anaphylaxis DILANTIN (PHENYTOIN SODIUM EXTEND*01/28/2006 Date Reviewed: 11/18/2023 Reviewed by: Aaliyah Gonzalez MA - Fully Assessed Reason for Visit: recert patient for retirement service [Other] Prescriptions as of 12/08/2023 - [...] mouth once daily. - multivitamin-ferrous fumarate-folic acid (CERTAVITE-ANTIOXIDANT ) Take 1 tablet by mouth once daily. - fluticasone (FLONASE) 50 mcg/actuation nasal spray INSTILL 2 SPRAYS IN EACH NOSTRIL DAILY - Osbli-5-OAN-EPA-Fish Oil 1,000 mg (120 mg-180 mg) cap [...] (more content not included)... Normal [facility] CNOVon 11-18-2023 CNOV Office Visit (INTMWS ) SIA ABDUL ([id number]) 1980 F Date Time Provider Department 11/18/23 3:40 PM MARILEE THAKUR INTMWS During your visit today, we recorded the following information about you: Pulse Respiration Blood pressure Weight 75/minute 16/minute 134/80 119.6 kg Marilee Thakur MD 11/18/2023 5:45 PM Signed Reason for Visit Patient presents with: Follow Up Louiskyleighjacques Abdul is a 42 year old female [...] (VIBRA-TABS) 100 mg tablet multivitamin-ferrous fumarate-folic acid (CERTAVITE-ANTIOXIDANT ) fluticasone (FLONASE) 50 mcg/actuation nasal spray Cwkpl-1-RMI-EPA-Fish Oil 1,000 mg (120 mg-180 mg) cap [...] (more content not included)... Normal [facility] Nuclear Criticality Safety Engineer Office Visit Reporton 11-18-2023 Nuclear Criticality Safety Engineer Office Visit Report Normal [facility] CNOVon 11-13-2023 CNOV Office Visit (INTMWS ) SIA ABDUL ([id number]) 1980 F Date Time Provider Department 11/13/23 11:00 AM MIKA KAPLAN During your visit today, we recorded the following information about you: Temperature Pulse Respiration Blood pressure 98.2 degrees 60/minute 16/minute 136/84 Weight 117.5 kg Mika Kaplan APRN.CNP 11/13/2023 12:41 PM Signed CC: Patient presents with: Recheck: ER follow up, cellulitis completed AIB HPI Sia Abdul is a 43 year old female who presents today for cellulitis Unsure if there was injury or what caused infection but noticed while playing basketball that leg was red, hot, more swollen then usual and painful. Went immediately to [place] ER on 10/29. No US completed to [...] [Phenytoin Sodium Extended] MEDICATIONS multivitamin-ferrous fumarate-folic acid (CERTAVITE-ANTIOXIDANT ) Take 1 tablet by mouth once daily. fluticasone (FLONASE) 50 mcg/actuation nasal spray INSTILL 2 SPRAYS IN EACH NOSTRIL DAILY Nmfmk-5-WFV-EPA-Fish Oil 1,000 mg (120 mg-180 mg) cap [...] (more content not included)... Normal [facility] Tal 11-13-2023 LOU Telephone (PAOLOWS) SIA ABDUL ([id number]) 1980 F Date Time Provider Department 11/13/23 MIKA KAPLAN During your visit today, we recorded the following information about you: María Avila MA 11/13/2023 2:42 PM Signed ----- Message from Mika Kaplan APRN.MANAGER HOTEL sent at 11/13/2023 2:13 PM EDT ----- Please let [facility] know preliminary result of US is negative for blood clot. Thank you Mika Kaplan APRN.María Mchugh MA 11/13/2023 2:44 PM [...] for 10 days. - multivitamin-ferrous fumarate-folic acid (CERTAVITE-ANTIOXIDANT ) Take 1 tablet by mouth once daily. 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 Normal [facility] LEG VEIN DVT UNL VAS LABo n 11-13-2023 LEG VEIN DVT UNL VAS LAB Non-Invasive Vascular Laboratory [facility] Lower Extremity Venous Duplex Unilateral - Left Date of service/time: 11/13/2023 1:13:16 PM Name: MISS SIA ABDUL Date of : 1980 Age: 43 [...] small saphenous vein. Technologist: Hina Giraldo RVT [facility] Ordering physician: MIKA KAPLAN Interpreting physician: DANITZA Eden DO Final CC [facility] Image : [id number] See Link below for Image Normal [facility] Lower extremity veinon Non-Invasive Vascular Laboratory [facility] Lower Extremity Venous Duplex Unilateral - Left Date of service/time: 11/13/2023 1:13:16 PM Name: MISS SIA ABDUL Date of : 1980 Age: 43 [...] small saphenous vein. Technologist: Hina Giraldo RVT [facility] Ordering physician: MIKA KAPLAN Interpreting physician: DANITZA Eden DO Final See Link below for Image [facility] C[facility]N Telephone (INTMWS) SIA ABDUL ([id number]) 1980 F Date Time Provider Department 11/12/23 MARILEE THAKUR INTMWS During your visit today, we recorded the following information about you: Candelaria Ball LPN 11/12/2023 9:30 AM Signed Clarence from [facility] calling 2 weeks ago ER put [...] 12:24 PM Signed Discussed in appointment today Mika Kaplan APRN.Candelaria Perez LPN 11/19/2023 8:50 AM Signed Clarence from [facility] calling back, went over notes from visit patient was given doxycycline 100 mg one tablet twice daily for 10 days and PCP had given orders for compression stockings, she had venous doppler and was negative for clot with understanding. Allergies As of Date: 11/12/2023 Noted Allergy Reaction BEE STING 02/28/2023 10 - Anaphylaxis DILANTIN (PHENYTOIN SODIUM EXTEND*01/28/2006 Date Reviewed: 03/19/2023 Reviewed by: Latesha Garibay APRN.OBED - Fully Assessed Reason for Visit: Patient [...] for 10 days. - multivitamin-ferrous fumarate-folic acid (CERTAVITE-ANTIOXIDANT ) Take 1 tablet by mouth once daily. - fluticasone (FLONASE) 50 mcg/actuation nasal spray INSTILL 2 SPRAYS IN EACH NOSTRIL DAILY - Jaxps-5-KCU-EPA-Fish Oil 1,000 mg (120 mg-180 mg) cap [...] 01/28/2006 1 (more content not included)... Normal [facility] Basic Metabolic Profile (BMP )on 10-30-2023 BUN/CRE 21.5 RATIO High - [facility] Comment on above: Performed By: #### L 500.2500, L100.0100 ####[facility] [address] [place], [address] CA,Total 9.3 mg/dL Normal 8.5-10.1 [facility] Comment on above: Performed By: #### L 500.2500, L100.0100 ####[facility] [address] [place], [address] Chloride [Moles/Vol] 105 mmol/L Normal 98-107 [facility] Comment on above: Performed By: #### L 500.2500, L100.0100 ####[facility] [address] [place], [address] CO2 [Moles/Vol] 24.0 mmol/L Normal 21.0-32.0 [facility] Comment on above: Performed By: #### L 500.2500, L100.0100 ####[facility] [address] [place], [address] Creatinine [Mass/Vol] 0.60 mg/dL Normal 0.55-1.02 [facility] Comment on above: Result Comment: The validity of the calculated GFR GFRAA in patients over70 years has not been determined. Clinical correlation isessential. Performed By: #### L 500.2500, L100.0100 ####[facility] [address] [place], [address] ECRCL 142.84 ml/min Normal [facility] Comment on above: Performed By: #### L 500.2500, L100.0100 ####[facility] [address] [place], [address] EST GFR - AA 140 mL/min Normal >60 [facility] Comment on above: Result Comment: Afri can [place] GFR Calc Performed By: #### L 500.2500, L100.0100 ####[facility] [address] [place], [address] GAP 10 Normal 5-15 [facility] Comment on above: Performed By: #### L 500.2500, L100.0100 ####[facility] [address] [place], [address] GFR/1.73 sq M.predicted among non-blacks MDRD (S/P/Bld) [Vol rate/Area] 116 mL/min/{1.73_m2} Normal >60 [facility] Comment on above: Result Comment: Non- GFR Calc Performed By: #### L 500.2500, L100.0100 ####[facility] [address] [place], [address] Glucose [Mass/Vol] 80 mg/dL Normal 74-106 [facility] Comment on above: Performed By: #### L 500.2500, L100.0100 ####[facility] [address] [place], [address] Potassium [Moles/Vol] 4.5 mmol/L Normal 3.5-5.1 [facility] Comment on above: Performed By: #### L 500.2500, L100.0100 ####[facility] [address] [place], [address] Sodium [Moles/Vol] 139 mmol/L Normal 136-145 [facility] Comment on above: Performed By: #### L 500.2500, L100.0100 ####[facility] [address] [place], [address] Urea nitrogen [Mass/Vol] 13 mg/dL Normal 7-18 [facility] Comment on above: Performed By: #### L 500.2500, L100.0100 ####[facility] [address] [place], [address] CBC W/Diff, Automatedon 10-09-2023 Absolute Lymph 3.89 X10 3/uL Normal 0.83-4.51 [facility] Comment on above: Performed By: #### L 500.2500, L100.0100 ####[facility] [address] [place], [address] Absolute Neut 8.1 X10 3/uL High 2.0-7.7 [facility] Comment on above: Performed By: #### L 500.2500, L100.0100 ####[facility] [address] [place], [address] Basophils/100 WBC (Bld) 0.7 % Normal 0-1 [facility] Comment on above: Performed By: #### L 500.2500, L100.0100 ####[facility] [address] [place], [address] Eosinophils/100 WBC (Bld) 1.9 % Normal 0-5 [facility] Comment on above: Performed By: #### L 500.2500, L100.0100 ####[facility] [address] [place], [address] Erythrocyte distribution width (RBC) [Ratio] 12.8 % Normal 11.6-14.6 [facility] Comment on above: Performed By: #### L 500.2500, L100.0100 ####[facility] [address] [place], [address] Hematocrit (Bld) [Volume fraction] 45.4 % Normal 37-47 [facility] Comment on above: Performed By: #### L 500.2500, L100.0100 ####[facility] [address] [place], [address] Hemoglobin (Bld) [Mass/Vol] 14.1 g/dL Normal 12.0-15.0 [facility] Comment on above: Performed By: #### L 500.2500, L100.0100 ####[facility] [address] [place], [address] IG% 0.300 Normal 0.0-0.9 [facility] Comment on above: Result Comment: IG% - Immature Granulocytes (promyelocytes, myelocytes andmetamyelocytes) > 1% indicates that a LEFT SHIFT is Present. Performed By: #### L 500.2500, L100.0100 ####[facility] [address] [place], [address] Lymphocytes/100 WBC (Bld) 28.9 % Normal 19-41 [facility] Comment on above: Performed By: #### L 500.2500, L100.0100 ####[facility] [address] [place], [address] MCH (RBC) [Entitic mass] 31.2 pg Normal 27.0-32.0 [facility] Comment on above: Performed By: #### L 500.2500, L100.0100 ####[facility] [address] [place], [address] MCHC (RBC) [Mass/Vol] 31.1 g/dL Low 32-36 [facility] Comment on above: Performed By: #### L 500.2500, L100.0100 ####[facility] [address] [place], [address] MCV (RBC) [Entitic vol] 100.4 fL High 81-99 [facility] Comment on above: Performed By: #### L 500.2500, L100.0100 ####[facility] [address] [place], [address] Monocytes/100 WBC (Bld) 8.0 % Normal 0-10 [facility] Comment on above: Performed By: #### L 500.2500, L100.0100 ####[facility] [address] [place], [address] Neutrophils/100 WBC (Bld) 60.2 % Normal 47-70 [facility] Comment on above: Performed By: #### L 500.2500, L100.0100 ####[facility] [address] [place], [address] Nucleated RBC (Bld) [#/Vol] 0 10*3/uL Normal 0-5 [facility] Comment on above: Performed By: #### L 500.2500, L100.0100 ####[facility] [address] [place], [address] Platelet mean volume (Bld) [Entitic vol] 10.8 fL Normal 6.2-12.0 [facility] Comment on above: Performed By: #### L 500.2500, L100.0100 ####[facility] [address] [place], [address] Platelets (Bld) [#/Vol] 155 10*3/uL Normal 150-450 [facility] Comment on above: Performed By: #### L 500.2500, L100.0100 ####[facility] [address] [place], [address] RBC (Bld) [#/Vol] 4.52 10*6/uL Normal 4.2-5.4 [facility] Comment on above: Performed By: #### L 500.2500, L100.0100 ####[facility] [address] [place], [address] RDW SD 47.6 fl High 35.1-43.9 [facility] Comment on above: Performed By: #### L 500.2500, L100.0100 ####[facility] [address] [place], [address] WBC (Bld) [#/Vol] 13.5 10*3/uL High 4.4-11.0 [facility] Comment on above: Performed By: #### L 500.2500, L100.0100 ####[facility] [address] [place], [address] Emergency Department Summary on 10-30-2023 Emergency Department Summary Normal [facility] Pelvic w/ Transvaginalon Pelvic w/ Transvaginal Normal [facility] CNPNon 10-09-2023 CNPN Telephone (INTMWS) SIA ABDUL ([id number]) 1980 F Date Time Provider Department 10/09/23 MARILEE THAKUR INTMWS During your visit today, we recorded the following information about you: Pepper Walsh RN 10/09/2023 2:35 PM Signed Crystal with [facility] calling to update PCP that patient has 3cm open area to her right gonzales. Will keep it open to air and does not feel dressing is necessary. Patient is unsure how she acquired it but does pick at skin. Nursing will continue to monitor area. No call back needed, if provider agreeable. Pepper Walsh RN . Marilee Thakur MD 10/09/2023 5:58 PM Signed Noted and agree Regards, Marilee Thakur MD Allergies As of Date: 10/09/2023 Noted Allergy Reaction BEE STING 02/28/2023 10 - Anaphylaxis DILANTIN (PHENYTOIN SODIUM EXTEND*01/28/2006 Date Reviewed: 03/19/2023 Reviewed by: Latesha Garibay APRN.MANAGER HOTEL - Fully Assessed Reason for Visit: Patient Update [1234] Prescriptions as of 10/10/2023 - multivitamin-ferrous fumarate-folic acid (CERTAVITE-ANTIOXIDANT ) Take 1 tablet by mouth once daily. - fluticasone (FLONASE) 50 mcg/actuation nasal spray INSTILL 2 SPRAYS IN EACH NOSTRIL DAILY - Rdxzi-1-JOP-EPA-Fish Oil 1,000 mg (120 mg-180 mg) cap [...] adult (HCC) [Z68.42] 02/09/2015 03/19/2023 Hypothalamic hypogonadism (H (more content not included)... Normal [facility] CNPN Telephone (INTMWS) SIA ABDUL ([id number]) 1980 F Date Time Provider Department 10/09/23 MARILEE THAKUR INTILANA During your visit today, we recorded the following information about you: Candelaria Ball LPN 10/09/2023 1:34 PM Signed Clarence from [facility] calling to recert orders for shelter for the patient, if PCP would agree. Please advise Marilee Thakur MD 10/09/2023 5:58 PM Signed Agree Marilee Lassiter MD, Beth, LPN 10/10/2023 8:38 AM Signed Phoned Clarence and went over notes below from Dr Thakur with understanding. Allergies As of Date: 10/09/2023 Noted Allergy Reaction BEE STING 02/28/2023 10 - Anaphylaxis DILANTIN (PHENYTOIN SODIUM EXTEND*01/28/2006 Date Reviewed: 03/19/2023 Reviewed by: Latesha Garibay APRN.MANAGER HOTEL - Fully Assessed Reason for Visit: recert orders [Other] Prescriptions as of 10/10/2023 - multivitamin-ferrous fumarate-folic acid (CERTAVITE-ANTIOXIDANT ) Take 1 tablet by mouth once daily. - fluticasone (FLONASE) 50 mcg/actuation nasal spray INSTILL 2 SPRAYS IN EACH NOSTRIL DAILY - Enqis-8-TRO-EPA-Fish Oil 1,000 mg (120 mg-180 mg) cap [...] right lowe (more content not included)... Normal [facility] Nuclear Criticality Safety Engineer Office Visit Reporton 09-17-2023 Nuclear Criticality Safety Engineer Office Visit Report Normal [facility] CNPNon 08-07-2023 CNPN Telephone (INTMWS) SIA ABDUL ([id number]) 1980 F Date Time Provider Department 08/07/23 MARILEE THAKUR INTMWS During your visit today, we recorded the following information about you: Lillie Marshall RN 08/07/2023 10:44 AM Signed Clarence from [facility] calls to see if provider will continue to follow orders for retirement? RODRÍGUEZ Carnes Terri, APRN.FLAVORING MAKER 08/07/2023 12:45 PM Signed Darlene Patricia OCCA 08/07/2023 12:57 PM Signed Clarence informed of below. ANUPAMA Lira Allergies As of Date: 08/07/2023 Noted Allergy Reaction BEE STING 02/28/2023 10 - Anaphylaxis DILANTIN (PHENYTOIN SODIUM EXTEND*01/28/2006 Date Reviewed: 03/19/2023 Reviewed by: Latesha Garibay APRN.MANAGER HOTEL - Fully Assessed Prescriptions as of 08/07/2023 [...] LEGS AT BEDTIME - multivitamin-ferrous fumarate-folic acid (CERTAVITE-ANTIOXIDANT ) Take 1 tablet by mouth once daily. - naproxen (NAPROSYN) 500 mg tablet TAKE ONE TABLET BY MOUTH TWICE DAILY NEEDED FOR PAIN/INFLAMMATION OF KNEE *TAKE WITH FOOD* *STAFF REORDER, 4 DAYS IN ADVANCE* - fluticasone (FLONASE) 50 mcg/actuation nasal spray INSTILL 2 SPRAYS IN EACH NOSTRIL DAILY - Drjee-4-EFW-EPA-Fish Oil 1,000 mg (120 mg-180 mg) cap [...] 01/16/2016 Venous stasis ulcers (HCC) [I83.009, L97.909] 01/16/2016 (more content not included)... 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 A review on management of adults with PWS has been published recently (PMID: 47623833). When systematically screened for common conditions, some [...] encouraged participation in sports activities at her senior living. - Management of HTN per PCP. 2. At risk for endocrinopathies: Adults with PWS are at increased risk for diabetes, hypercholesterolemia, growth hormone deficiency, hypogonadism, and rarely, adrenal insufficiency. 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 Plan: - Annual TSH, lipid profile, HbA1C through PCP - See Deck And Hull Assembler for OCP 3. Bone health Adults with PWS have increased risk of scoliosis, osteopenia/osteoporosi s due to multiple risk factors such as [...] year Chief Complaint Follow up Accompanied by caregivers homecare. History of Present Illness PWS CLINIC Deepali is a 42 year old female who has presented to the PWS multidisciplinary clinic at [facility]. She is accompanied by her supervisor brew house, Anali. History was obtained by the patient, Anali, and review of medical records. She was last seen here in 11/2021, and was seen by Meme Whiting MS, RD, LDN. At her last visit, we requested she follow up in 6 months, but this was pushed back to today instead. She declined a referral with Dr. Zaida Alfaro today, as she has in the past. PCP: Dr. Marilee Thakur at [facility], fax number [phone], is currently seeing an INDUSTRIAL LABORER named Older at this office Interval History: She says that she feels good, and has not been sick. Anali does [...] and Friday, where she works out (e.g., machines, Smart Lunches) half a day. She just received a [...] records - they may be accessible on [employer], and will hopefully be more available on [employer]. - Seeing Gynecology for OCP (for bone health). Dx of uterine prolapse. - Asthma, using inhalers twice a day. She denies dys (more content not included)... Normal [facility] 12-05-2022 Nutrition-Adult History of Present Illness Food/Nutrition related history: [facility] Nutrition Assessment in PWS Clinic Date of [...] with team (see allergy list) Current Medications: medications/supplement s reviewed and discussed with team (see medication list) Biochemical and Diagnostic Testing: testing was reviewed and discussed with team NUTRITION HISTORY AND INTAKE: Pt and caregiver (Anali - Bungy Jump Master) present in out-patient PWS clinic for a scheduled f/u clinic visit. 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 [facility] with [facility]. Food Seeking Behavior: yes, food locked up and monitored Food Access Secured: yes DIET HISTORY AND DAILY NUTRITIONAL INTAKE: - Dietary Restrictions: high kcals - Vitamin/Mineral/Supple ments: MV w/iron - Feeding Route: all PO [...] personalized and standard reference points set by ASPEN/AND/WHO/GMDI/Cur rent Disease Specific Literature. Growth parameters/goals may need [...] - Nu (more content not included)... Normal [facility] Tobacco Screening.on 023 Adult depression screening assessment No [facility] Work Phone: Tobacco use status [facility] b) No DO-Ffiygbwb[address]R [address] Work Phone: Tobacco Screening.on 022 Adult depression screening assessment No [facility] [employer] [facility] [address] DO Work Phone: Fall risk assessment a) No falls within the last year [facility] Work Phone: Tobacco use status [facility] b) No [facility] [employer] [facility] [address] DO Work Phone: US Hip - lefton 05-31-2021 IMPRESSION: Unremarkable ultrasound of the anterior left hip Inside Sales Engineer: NADIA Transcribe Date/Time: May 31 2021 1:54P Dictated by : PAM MUNIZ MD This examination was interpreted and the report reviewed and electronically signed by: GUS SAGE MD on May 31 2021 2:05PM [facility] DIVISION OF RADIOLOGY * * *Final Report* * * DATE OF EXAM: May 31 2021 1:48PM [facility] 1147 - HIP LT / PROCEDURE REASON: Left groin pain * * * * Physician Interpretation * * * * MSK_US LEFT ANTERIOR HIP ULTRASOUND: CLINICAL INFORMATION:Left groin pain TECHNIQUE: Crhistensen-scale real-time ultrasound of the anterior hip with [...] Not well seen. DIVISION OF RADIOLOGY Provider, [facility] * * *Final Report* * * DATE OF EXAM: May 31 2021 1:48PM [facility] 1147 [facility] HIP LT / PROCEDURE REASON: Left groin [...] Unremarkable ultrasound of the anterior left hip Inside Sales Engineer: NADIA Transcribe Date/Time: May 31 2021 1:54P Dictated by : PAM MUNIZ MD This examination was interpreted and the report reviewed and electronically signed by: GUS SAGE MD on May 31 2021 2:05PM EST [facility] Radiology Study observation (narrative) [facility] US Hip - leftOrdered By: [facility] Provider on 05-31-2021 [facility] Tobacco Screening.on 022 Fall risk assessment a) No falls within the last year [facility] Work Phone: Tobacco use status [facility] b) No [facility]-Hoabhhtt-[address] Work Phone: CNOVon 02-15-2021 CNOV Office Visit (AGMIL) SIA ABDUL ([id number]) 1980 F Date Time Provider Department 02/15/21 [...] needed basis. This note was generated with [employer] dictation software. It may contain incorrect words, spelling, and punctuation and that were not noted in review of the chart prior to signing. I spent 15 minutes in the visit, with more than 50% of the total poip-su-ofnp time of the visit in counseling / coordination of care. Recommendations: #1 continue lymphedema pumping #2 continue lymphedema wraps #3 check with primary care physician and if no contraindications begin enteric-coated baby aspirin on a daily basis. Referring Provider: MARILEE THAKUR [[id number]] Allergies As of Date: 02/15/2021 Noted Allergy [...] left lower extremity [I89.0] BMI 50.0-59.9, adult ([facility]) [Z68.43] Prescriptions as of 02/15/2021 - furosemide (LASIX) 20 mg tablet TAKE ONE TABLET BY MOUTH EVERY OTHER DAY - clotrimazole (LOTRIMIN, CLOTRIM) 1 % cream APPLY TOPICALLY TO AFFECTED AREA(S) ON BILATERAL GROIN TWICE DAILY - ammonium lactate (LAC-HYDRIN) 12 % cream APPLY TOPICALLY TO AFFECTED AREA(S) ON LEGS AT BEDTIME - cmgasmk-oqeewvniu-uujy min D3 (OYSTER SHELL CALCIUM-VITAMIN D) 500 mg(1,250mg) [...] DAILY *SHAKE GENTLY BEFORE USING* - Fish Oil-Gurdon-3 Fatty Acids (FISH OIL) 340-1,000 mg cap [...] (more content not included)... Normal [facility] CNOVon 01-18-2021 OV Office Visit (AGMIL) SIA ABDUL ([id number]) 1980 F Date Time Provider Department 01/18/21 [...] a month. This note was generated with [employer] software. It may contain incorrect words, spelling, and punctuation and that were not noted in review of the chart prior to signing. I spent 15 minutes in the visit, with more than 50% of the total wzhh-nh-rejh time of the visit in counseling / coordination of care. 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 Normal [facility] Vital Signs Date Time Vital Sign Value Performing Clinician Facility 05-30-2024 12:19-0400 Blood Pressure Cuff Size NOEMI WEST MD [facility] 05-30-2024 12:19-0400 Blood Pressure Location NOEMI WEST MD [facility] 05-30-2024 12:19-0400 Blood Pressure Method NOEMI WEST MD [facility] 05-30-2024 12:19-0400 Body temperature 97.7 [degF] NOEMI WEST MD [facility] 05-30-2024 12:19-0400 Diastolic Blood Pressure Non-Invasive 59 mm[Hg] NOEMI WEST MD [facility] 05-30-2024 12:19-0400 Heart rate 65 /min NOEMI WEST MD [facility] 05-30-2024 12:19-0400 Reason For Taking VItal Signs NOEMI WEST MD [facility] 05-30-2024 12:19-0400 Respiratory rate 18 /min NOEMI WEST MD [facility] 05-30-2024 12:19-0400 Systolic Blood Pressure Non-Invasive 141 mm[Hg] NOEMI WEST MD [facility] 05-30-2024 09:10-0400 Body temperature 97.7 [degF] NOEMI WEST MD [facility] 05-30-2024 09:10-0400 Diastolic Blood Pressure Non-Invasive 60 mm[Hg] NOEMI WEST MD [facility] 05-30-2024 09:10-0400 Heart rate 66 /min NOEMI WEST MD [facility] 05-30-2024 09:10-0400 Reason For Taking VItal Signs NOEMI WEST MD [facility] 05-30-2024 09:10-0400 Respiratory rate 18 /min NOEMI WEST MD [facility] 05-30-2024 09:10-0400 Systolic Blood Pressure Non-Invasive 126 mm[Hg] NOEMI WEST MD [facility] 05-30-2024 03:52-0400 SaO2% (BldA) [Mass fraction] 92.0 % NOEMI WEST MD [facility] 05-30-2024 00:39-0400 Heart rate 62 /min NOEMI WEST MD [facility] 05-30-2024 00:27-0400 Blood Pressure Cuff Size NOEMI WEST MD [facility] 05-30-2024 00:27-0400 Blood Pressure Location NOEMI WEST MD [facility] 05-30-2024 00:27-0400 Blood Pressure Method NOEMI WEST MD [facility] 05-30-2024 00:27-0400 Body temperature 97.52 [degF] NOEMI WEST MD [facility] 05-30-2024 00:27-0400 Diastolic Blood Pressure Non-Invasive 74 mm[Hg] NOEMI WEST MD [facility] 05-30-2024 00:27-0400 Heart rate 66 /min NOEMI WEST MD [facility] 05-30-2024 00:27-0400 Reason For Taking VItal Signs NOEMI WEST MD [facility] 05-30-2024 00:27-0400 Respiratory rate 16 /min NOEMI WEST MD [facility] 05-30-2024 00:27-0400 Systolic Blood Pressure Non-Invasive 121 mm[Hg] NOEMI WEST MD [facility] 05-29-2024 20:32-0400 Blood Pressure Cuff Size NOEMI WEST MD [facility] 05-29-2024 20:32-0400 Blood Pressure Location NOEMI WEST MD [facility] 05-29-2024 20:32-0400 Blood Pressure Method NOEMI WEST MD [facility] 05-29-2024 02:57-0400 Heart rate 68 /min NOEMI WEST MD [facility] 05-28-2024 03:10-0400 Body temperature 98.06 [degF] NOEMI WEST MD [facility] 05-28-2024 03:10-0400 Heart rate 65 /min NOEMI WEST MD [facility] 05-28-2024 03:04-0400 SaO2% (BldA) [Mass fraction] 93.4 % NOEMI WEST MD [facility] 05-27-2024 19:22-0400 Body temperature 98.6 [degF] NOEMI WEST MD [facility] 05-27-2024 19:22-0400 Heart rate 71 /min NOEMI WEST MD [facility] 05-27-2024 16:20-0400 Heart rate 67 /min NOEMI WEST MD [facility] 05-27-2024 11:52-0400 Body temperature 97.88 [degF] NOEMI WEST MD [facility] 05-26-2024 10:09-0400 SaO2% (BldA) [Mass fraction] 98.8 % NOEMI WEST MD [facility] 05-26-2024 07:30-0400 Body weight 138.6 kg NOEMI WEST MD [facility] 05-25-2024 11:32-0400 Heart rate 66 /min NOEMI WEST MD [facility] 05-25-2024 08:16-0400 Body weight 140.2 kg NOEMI WEST MD [facility] 05-24-2024 16:26-0400 SaO2% (BldA) [Mass fraction] 91.8 % NOEMI WEST MD [facility] 05-23-2024 16:26-0400 Mean blood pressure 76 mm[Hg] NOEMI WEST MD [facility] 05-22-2024 19:29-0400 Mean blood pressure 85 mm[Hg] NOEMI WEST MD [facility] 05-22-2024 06:30-0400 Mean blood pressure 74 mm[Hg] NOEMI WEST MD [facility] 05-18-2024 04:43-0400 Mean blood pressure 48 mm[Hg] NOEMI WEST MD [facility] 05-18-2024 04:42-0400 Mean blood pressure 90 mm[Hg] NOEMI WEST MD [facility] 05-18-2024 04:39-0400 SaO2% (BldA) [Mass fraction] 95.6 % NOEMI WEST MD [facility] 05-18-2024 03:57-0400 Diastolic blood pressure 73 mm[Hg] NOEMI WEST MD [facility] 05-18-2024 03:57-0400 Mean blood pressure 91 mm[Hg] NOEMI WEST MD [facility] 05-18-2024 03:57-0400 Systolic blood pressure 111 mm[Hg] NOEMI WEST MD [facility] 05-18-2024 02:06-0400 SaO2% (BldA) [Mass fraction] 99.4 % NOEMI WEST MD [facility] 05-13-2024 01:56-0500 Body height 149 cm NOEMI WEST MD [facility] 05-13-2024 01:56-0500 Body weight 136.1 kg NOEMI WEST MD [facility] 05-13-2024 01:56-0500 Body weight 61.3 kg/m2 NOEMI WEST MD [facility] 05-08-2024 12:14-0500 Diastolic Blood Pressure Non-Invasive 82 mm[Hg] JAMILA DARDEN MD [facility] 05-08-2024 12:14-0500 Heart rate 71 /min JAMILA DARDEN MD [facility] 05-08-2024 12:14-0500 Reason For Taking VItal Signs JAMILA DARDEN MD [facility] 05-08-2024 12:14-0500 Respiratory rate 18 /min JAMILA DARDEN MD [facility] 05-08-2024 12:14-0500 Systolic Blood Pressure Non-Invasive 130 mm[Hg] JAMILA DARDEN MD [facility] 05-08-2024 12:03-0500 Diastolic Blood Pressure Non-Invasive 76 mm[Hg] JAMILA DARDEN MD [facility] 05-08-2024 12:03-0500 Respiratory rate 18 /min JAMILA DARDEN MD [facility] 05-08-2024 12:03-0500 Systolic Blood Pressure Non-Invasive 130 mm[Hg] JAMILA DARDEN MD [facility] 05-08-2024 11:00-0500 Blood Pressure Location JAMLIA DARDEN MD [facility] 05-08-2024 11:00-0500 Body temperature 97.88 [degF] JAMILA DARDEN MD [facility] 05-08-2024 11:00-0500 Diastolic Blood Pressure Non-Invasive 83 mm[Hg] JAMILA DARDEN MD [facility] 05-08-2024 11:00-0500 Heart rate 75 /min JAMILA DARDEN MD [facility] 05-08-2024 11:00-0500 Respiratory rate 20 /min JAMILA DARDEN MD [facility] 05-08-2024 11:00-0500 Systolic Blood Pressure Non-Invasive 143 mm[Hg] JAMILA DARDEN MD [facility] 05-04-2024 12:01-0500 Diastolic blood pressure 79 mm[Hg] Isi Goodman MD Work Phone: [facility] 05-04-2024 12:01-0500 Heart rate 63 /min Isi Goodman MD Work Phone: [facility] 05-04-2024 12:01-0500 SaO2% (BldA) [Mass fraction] 99 % Isi Goodman MD Work Phone: [facility] 05-04-2024 12:01-0500 Systolic blood pressure 130 mm[Hg] Isi Goodman MD Work Phone: [facility] 05-03-2024 15:22-0500 Body height 149.9 cm Keely Ordonez MD Work Phone: [facility] 05-03-2024 15:22-0500 Body mass index (BMI) [Ratio] 57.56 kg/m2 Keely Ordonez MD Work Phone: [facility] 05-03-2024 15:22-0500 Body weight 129.28 kg Keely Ordonez MD Work Phone: [facility] 05-03-2024 15:22-0500 Diastolic blood pressure 78 mm[Hg] Keely Ordonez MD Work Phone: [facility] 05-03-2024 15:22-0500 Heart rate 62 /min Keely Ordonez MD Work Phone: [facility] 05-03-2024 15:22-0500 Systolic blood pressure 112 mm[Hg] Keely Ordonez MD Work Phone: [facility] 04-06-2024 09:51-0500 Diastolic blood pressure 83 mm[Hg] Hilda Jeong DO Work Phone: [facility] 04-06-2024 09:51-0500 Heart rate 76 /min Hilda Jeong DO Work Phone: [facility] 04-06-2024 09:51-0500 SaO2% (BldA) [Mass fraction] 99 % Hilda Jeong DO Work Phone: [facility] Comment on above: 2L 04-06-2024 09:51-0500 Systolic blood pressure 121 mm[Hg] Hilda Jeong DO Work Phone: [facility] 04-01-2024 10:56-0500 Body mass index (BMI) [Ratio] 61.89 kg/m2 Mika Older WAXER TENDER.MANAGER [employer]OTEL Work Phone: [facility] 04-01-2024 10:56-0500 Body weight 127.46 kg Mika Older WAXER TENDER.MANAGER [employer]EL Work Phone: [facility] 04-01-2024 10:56-0500 Diastolic blood pressure 80 mm[Hg] Mika Older WAXER TENDER.MANAGER [employer]OTEL Work Phone: [facility] 04-01-2024 10:56-0500 Heart rate 72 /min Mika Older WAXER TENDER.MANAGER [employer]EL Work Phone: [facility] 04-01-2024 10:56-0500 Respiratory rate 16 /min Mika Older WAXER TENDER.MANAGER [employer]OTEL Work Phone: [facility] 04-01-2024 10:56-0500 SaO2% (BldA) [Mass fraction] 93 % Mika Older WAXER TENDER.MANAGER [employer]OTEL Work Phone: [facility] 04-01-2024 10:56-0500 Systolic blood pressure 122 mm[Hg] Mika Older WAXER TENDER.MANAGER [employer]OTEL Work Phone: [facility] 03-23-2024 10:33-0500 Body mass index (BMI) [Ratio] 63.22 kg/m2 Isi Goodman MD Work Phone: [facility] 03-23-2024 10:33-0500 Body weight 129.28 kg Isi Goodman MD Work Phone: [facility] 03-23-2024 10:33-0500 Diastolic blood pressure 73 mm[Hg] Isi Goodman MD Work Phone: [facility] 03-23-2024 10:33-0500 Heart rate 67 /min Isi Goodman MD Work Phone: [facility] 03-23-2024 10:33-0500 SaO2% (BldA) [Mass fraction] 98 % Isi Goodman MD Work Phone: [facility] 03-23-2024 10:33-0500 Systolic blood pressure 123 mm[Hg] Isi Goodman MD Work Phone: [facility] 03-12-2024 10:14-0500 Body mass index (BMI) [Ratio] 66.37 kg/m2 Rajesh Corona MD Work Phone: [facility] 03-12-2024 10:14-0500 Body weight 136.7 kg Rajesh Corona MD Work Phone: [facility] 03-12-2024 10:14-0500 Diastolic blood pressure 85 mm[Hg] Rajesh Corona MD Work Phone: [facility] 03-12-2024 10:14-0500 Heart rate 74 /min Rajesh Corona MD Work Phone: [facility] 03-12-2024 10:14-0500 SaO2% (BldA) [Mass fraction] 98 % Rajesh Corona MD Work Phone: [facility] 03-12-2024 10:14-0500 Systolic blood pressure 116 mm[Hg] Rajesh Corona MD Work Phone: [facility] 02-27-2024 05:29-0500 Diastolic Blood Pressure Non-Invasive 89 mm[Hg] JAMILA DARDEN MD [facility] 02-27-2024 05:29-0500 Heart rate 65 /min JAMILA DARDEN MD [facility] 02-27-2024 05:29-0500 Respiratory rate 21 /min JAMILA DARDEN MD [facility] 02-27-2024 05:29-0500 Systolic Blood Pressure Non-Invasive 127 mm[Hg] JAMILA DARDEN MD [facility] 02-27-2024 03:55-0500 Diastolic Blood Pressure Non-Invasive 61 mm[Hg] JAMILA DARDEN MD [facility] 02-27-2024 03:55-0500 Heart rate 74 /min JAMILA DARDEN MD [facility] 02-27-2024 03:55-0500 Respiratory rate 23 /min JAMILA DARDEN MD [facility] 02-27-2024 03:55-0500 Systolic Blood Pressure Non-Invasive 109 mm[Hg] JAMILA DARDEN MD [facility] 02-27-2024 03:36-0500 Heart rate 75 /min JAMILA DARDEN MD [facility] 02-27-2024 03:36-0500 Respiratory rate 24 /min JAMILA DARDEN MD [facility] 02-27-2024 03:35-0500 Diastolic Blood Pressure Non-Invasive 75 mm[Hg] JAMILA DARDEN MD [facility] 02-27-2024 03:35-0500 Systolic Blood Pressure Non-Invasive 97 mm[Hg] JAMILA DARDEN MD [facility] 02-16-2024 15:17-0500 Body mass index (BMI) [Ratio] 63.65 kg/m2 Marilee Thakur MD Work Phone: [facility] 02-16-2024 15:17-0500 Body weight 131.09 kg Marilee Thakur MD Work Phone: [facility] 02-16-2024 15:17-0500 Diastolic blood pressure 58 mm[Hg] Marilee Thakur MD Work Phone: [facility] 02-16-2024 15:17-0500 Heart rate 57 /min Marilee Thakur MD Work Phone: [facility] 02-16-2024 15:17-0500 SaO2% (BldA) [Mass fraction] 93 % Marilee Thakur MD Work Phone: [facility] 02-16-2024 15:17-0500 Systolic blood pressure 78 mm[Hg] Marilee Thakur MD Work Phone: [facility] 02-06-2024 11:38-0500 Body mass index (BMI) [Ratio] 63.22 kg/m2 Marilee Thakur MD Work Phone: [facility] 02-06-2024 11:38-0500 Body weight 130.21 kg Marilee Thakur MD Work Phone: [facility] 02-06-2024 11:38-0500 Diastolic blood pressure 77 mm[Hg] Marilee Thakur MD Work Phone: [facility] 02-06-2024 11:38-0500 Heart rate 65 /min Marilee Thakur MD Work Phone: [facility] 02-06-2024 11:38-0500 SaO2% (BldA) [Mass fraction] 96 % Marilee Thakur MD Work Phone: [facility] 02-06-2024 11:38-0500 Systolic blood pressure 112 mm[Hg] Mairlee Thakur MD Work Phone: [facility] 01-20-2024 08:45-0500 Body mass index (BMI) [Ratio] 65.21 kg/m2 Isi Goodman MD Work Phone: [facility] 01-20-2024 08:45-0500 Body weight 133.36 kg Isi Goodman MD Work Phone: [facility] 01-20-2024 08:45-0500 Diastolic blood pressure 74 mm[Hg] Isi Goodman MD Work Phone: [facility] 01-20-2024 08:45-0500 Heart rate 74 /min Isi Goodman MD Work Phone: [facility] 01-20-2024 08:45-0500 SaO2% (BldA) [Mass fraction] 95 % Isi Goodman MD Work Phone: [facility] 01-20-2024 08:45-0500 Systolic blood pressure 109 mm[Hg] Isi Goodman MD Work Phone: [facility] 01-12-2024 09:05-0500 Body mass index (BMI) [Ratio] 60.59 kg/m2 Marilee Thakur MD Work Phone: [facility] 01-12-2024 09:05-0500 Body weight 124.79 kg Marilee Thakur MD Work Phone: [facility] 01-12-2024 09:05-0500 Diastolic blood pressure 70 mm[Hg] Marilee Thakur MD Work Phone: [facility] 01-12-2024 09:05-0500 Heart rate 77 /min Marilee Thaukr MD Work Phone: [facility] 01-12-2024 09:05-0500 Respiratory rate 16 /min Marilee Thakur MD Work Phone: [facility] 01-12-2024 09:05-0500 SaO2% (BldA) [Mass fraction] 99 % Marilee Thakur MD Work Phone: [facility] 01-12-2024 09:05-0500 Systolic blood pressure 134 mm[Hg] Marilee Thakur MD Work Phone: [facility] 12-21-2023 17:32-0400 Diastolic Blood Pressure Non-Invasive 83 mm[Hg] TABATHA PAGE DO [facility] 12-21-2023 17:32-0400 Heart rate 66 /min TABATHAMARISSA PAGE DO [facility] 12-21-2023 17:32-0400 Respiratory rate 16 /min TABATHAMARISSA PAGE DO [facility] 12-21-2023 17:32-0400 Systolic Blood Pressure Non-Invasive 123 mm[Hg] TABATHA PAGE DO [facility] 12-21-2023 16:06-0400 Diastolic Blood Pressure Non-Invasive 86 mm[Hg] TABATHA CAMILO DO [facility] 12-21-2023 16:06-0400 Heart rate 72 /min TABATHAMARISSA PAGE DO [facility] 12-21-2023 16:06-0400 Mean blood pressure 97 mm[Hg] TABATHA PAGE DO [facility] 12-21-2023 16:06-0400 Respiratory rate 18 /min TABATHA PAGE DO [facility] 12-21-2023 16:06-0400 Systolic Blood Pressure Non-Invasive 116 mm[Hg] TABATHA CAMILO DO [facility] 12-21-2023 14:11-0400 Blood Pressure Location TABATHA PAGE DO [facility] 12-21-2023 14:11-0400 Body temperature 97.88 [degF] TABATHA PAGE DO [facility] 12-21-2023 14:11-0400 Diastolic Blood Pressure Non-Invasive 85 mm[Hg] TABATHA PAGE DO [facility] 12-21-2023 14:11-0400 Heart rate 63 /min TABATHA PAGE DO [facility] 12-21-2023 14:11-0400 Respiratory rate 16 /min TABATHA PAGE DO [facility] 12-21-2023 14:11-0400 Systolic Blood Pressure Non-Invasive 130 mm[Hg] TABATHA PAGE DO [facility] 11-18-2023 16:05-0400 Body mass index (BMI) [Ratio] 58.07 kg/m2 Marilee Thakur MD Work Phone: [facility] 11-18-2023 16:05-0400 Body weight 119.6 kg Marilee Thakur MD Work Phone: [facility] 11-18-2023 16:05-0400 Diastolic blood pressure 80 mm[Hg] Marilee Thakur MD Work Phone: [facility] Comment on above: L wrist 11-18-2023 16:05-0400 Heart rate 75 /min Marilee Thakur MD Work Phone: [facility] 11-18-2023 16:05-0400 Respiratory rate 16 /min Marilee Thakur MD Work Phone: [facility] 11-18-2023 16:05-0400 Systolic blood pressure 134 mm[Hg] Marilee Thakur MD Work Phone: [facility] Comment on above: L wrist 11-13-2023 11:09-0400 Body mass index (BMI) [Ratio] 57.05 kg/m2 Mika Kaplan APRN.MANAGER HOTEL Work Phone: [facility] 11-13-2023 11:09-0400 Body temperature 98.2 [degF] Mika Kaplan WAXER TENDER.MANAGER [employer]OTEL Work Phone: [facility] 11-13-2023 11:09-0400 Body weight 117.5 kg Mika Older WAXER TENDER.MANAGER [employer]EL Work Phone: [facility] 11-13-2023 11:09-0400 Diastolic blood pressure 84 mm[Hg] Mika Older WAXER TENDER.MANAGER HOTEL Work Phone: [facility] 11-13-2023 11:09-0400 Heart rate 60 /min Mika Older WAXER TENDER.MANAGER [employer]EL Work Phone: [facility] 11-13-2023 11:09-0400 Respiratory rate 16 /min Mika Older WAXER TENDER.MANAGER [employer]OTEL Work Phone: [facility] 11-13-2023 11:09-0400 SaO2% (BldA) [Mass fraction] 98 % Mika Older WAXER TENDER.MANAGER [employer]OTEL Work Phone: [facility] 11-13-2023 11:09-0400 Systolic blood pressure 136 mm[Hg] Mika Older WAXER TENDER.MANAGER HOTEL Work Phone: [facility] 06-02-2023 15:04-0400 Body height 152.[address] Marilee Thakur Work Phone: [facility] 06-02-2023 15:04-0400 Body mass index (BMI) [Ratio] 48.8 kg/m2 Dr. Marilee Thakur Work Phone: [facility] 06-02-2023 15:04-0400 Body weight 113.[address] Marilee Thakur Work Phone: [facility] 12-05-2022 10:40-0400 Body height 143 cm Marilee Thakur Work Phone: [facility] [address] Work Phone: 12-05-2022 10:40-0400 Body mass index (BMI) [Ratio] 53.24 kg/m2 Marilee Thakur Work Phone: [facility] [address] Work Phone: 12-05-2022 10:40-0400 Body surface area Derived from formula 1.93 m2 Marilee Thakur Work Phone: [facility] [address] Work Phone: 12-05-2022 10:40-0400 Body temperature 98 [degF] Marilee Thakur Work Phone: [facility] [address] Work Phone: 12-05-2022 10:40-0400 Body weight 108.86 kg Marilee Thakur Work Phone: [facility] [address] Work Phone: 12-05-2022 10:40-0400 Heart rate 60 /min Marilee Thakur Work Phone: [facility]Hpnomsan[facility] [address] Work Phone: 12-05-2022 10:40-0400 Respiratory rate 24 /min Marilee Thakur Work Phone: [facility] [address] Work Phone: 12-05-2022 10:40-0400 SaO2% (BldA) [Mass fraction] 99 % Marilee Thakur Work Phone: [facility] [address] Work Phone: 10-23-2022 14:47-0400 Body weight 111.13 kg Mika Older WAXER TENDER.MANAGER [employer]EL Work Phone: [facility] 10-23-2022 14:47-0400 Diastolic blood pressure 78 mm[Hg] Mika Older WAXER TENDER.MANAGER HOTEL Work Phone: [facility] 10-23-2022 14:47-0400 Heart rate 62 /min Mika Older WAXER TENDER.MANAGER [employer]EL Work Phone: [facility] 10-23-2022 14:47-0400 Respiratory rate 16 /min Mika Older WAXER TENDER.MANAGER HOTEL Work Phone: [facility] 10-23-2022 14:47-0400 SaO2% (BldA) [Mass fraction] 99 % Mika Older WAXER TENDER.MANAGER [employer]OTEL Work Phone: [facility] 10-23-2022 14:47-0400 Systolic blood pressure 128 mm[Hg] Mika Older WAXER TENDER.MANAGER HOTEL Work Phone: [facility] 05-27-2022 14:51-0400 Body height 152.[address] Marilee Thakur Work Phone: 6(815)[phone] [place] [address] 05-27-2022 14:48-0400 Body mass index (BMI) [Ratio] 49.4 kg/m2 Dr. Marilee Thakur Work Phone: 9(255)[phone] [place] [address] 05-27-2022 14:48-0400 Body weight 114.[address] Marilee Thakur Work Phone: 9(225)[phone] [place] [address] 05-27-2022 14:48-0400 Diastolic blood pressure 72 mm[Hg] Dr. Marilee Thakur Work Phone: [facility] 05-27-2022 14:48-0400 Systolic blood pressure 114 mm[Hg] Dr. Marilee Thakur Work Phone: [facility] 05-02-2022 10:50-0500 Body height 142.2 cm Marilee Thakur MD Work Phone: [facility] 05-02-2022 10:50-0500 Body weight 111.58 kg Marilee Thakur MD Work Phone: [facility] 05-02-2022 10:50-0500 Diastolic blood pressure 68 mm[Hg] Marilee Thakur MD Work Phone: [facility] 05-02-2022 10:50-0500 Heart rate 53 /min Marilee Thakur MD Work Phone: [facility] 05-02-2022 10:50-0500 Respiratory rate 16 /min Marilee Thakur MD Work Phone: [facility] 05-02-2022 10:50-0500 SaO2% (BldA) [Mass fraction] 96 % Marilee Thakur MD Work Phone: [facility] 05-02-2022 10:50-0500 Systolic blood pressure 112 mm[Hg] Marilee Thakur MD Work Phone: [facility] 03-21-2022 12:59-0500 Body temperature 98.2 [degF] Mika Older WAXER TENDER.MANAGER [employer]EL Work Phone: [facility] 03-21-2022 12:59-0500 Body weight 112.95 kg Mika Older WAXER TENDER.MANAGER [employer]OTEL Work Phone: [facility] 03-21-2022 12:59-0500 Diastolic blood pressure 72 mm[Hg] Mika Older WAXER TENDER.MANAGER HOTEL Work Phone: [facility] 03-21-2022 12:59-0500 Heart rate 60 /min Mika Older WAXER TENDER.MANAGER [employer]EL Work Phone: [facility] 03-21-2022 12:59-0500 Respiratory rate 16 /min Mika Older WAXER TENDER.MANAGER HOTEL Work Phone: [facility] 03-21-2022 12:59-0500 SaO2% (BldA) [Mass fraction] 99 % Mika Older WAXER TENDER.MANAGER HOTEL Work Phone: [facility] 03-21-2022 12:59-0500 Systolic blood pressure 118 mm[Hg] Mika Older WAXER TENDER.MANAGER HOTEL Work Phone: [facility] 01-29-2022 09:48-0500 Body weight 110.68 kg Marilee Thakur MD Work Phone: [facility] 01-29-2022 09:48-0500 Diastolic blood pressure 68 mm[Hg] Marilee Thakur MD Work Phone: [facility] 01-29-2022 09:48-0500 Heart rate 66 /min Marilee Thakur MD Work Phone: [facility] 01-29-2022 09:48-0500 Respiratory rate 16 /min Marilee Thakur MD Work Phone: [facility] 11-22-2022 09:48-0500 SaO2% (BldA) [Mass fraction] 96 % Marilee Thakur MD Work Phone: [facility] 01-29-2022 09:48-0500 Systolic blood pressure 118 mm[Hg] Marilee Thakur MD Work Phone: [facility] [facility] 11-29-2021 10:39-0400 Body height 143 cm Marilee Thakur Work Phone: [facility] DO Work Phone: 11-29-2021 10:39-0400 Body mass index (BMI) [Ratio] 52.42 kg/m2 Marilee Thakur Work Phone: [facility] DO Work Phone: 11-29-2021 10:39-0400 Body surface area Derived from formula 1.91 m2 Marilee Thakur Work Phone: [facility] [address] DO Work Phone: 11-29-2021 10:39-0400 Body temperature 97.9 [degF] Marilee Thakur Work Phone: [facility] DO Work Phone: 11-29-2021 10:39-0400 Body weight 107.19 kg Marilee Thakur Work Phone: [facility] DO Work Phone: 11-29-2021 10:39-0400 Diastolic blood pressure 90 mm[Hg] Marilee Thakur Work Phone: [facility] DO Work Phone: 11-29-2021 10:39-0400 Heart rate 60 /min Marilee Thakur Work Phone: [facility] DO Work Phone: 11-29-2021 10:39-0400 Systolic blood pressure 141 mm[Hg] Marilee Thakur Work Phone: [facility] DO Work Phone: 10-29-2021 09:56-0400 Body height 142.2 cm Marilee Thakur MD Work Phone: [facility] 10-29-2021 09:56-0400 Body temperature 99.5 [degF] Marilee Thakur MD Work Phone: [facility] 10-29-2021 09:56-0400 Body weight 109.77 kg Marilee Thakur MD Work Phone: [facility] 10-29-2021 09:56-0400 Diastolic blood pressure 62 mm[Hg] Marilee Thakur MD Work Phone: [facility] 10-29-2021 09:56-0400 Heart rate 56 /min Marilee Thakur MD Work Phone: [facility] 10-29-2021 09:56-0400 Respiratory rate 16 /min Marilee Thakur MD Work Phone: [facility] 10-29-2021 09:56-0400 SaO2% (BldA) [Mass fraction] 95 % Marilee Thakur MD Work Phone: [facility] 10-29-2021 09:56-0400 Systolic blood pressure 118 mm[Hg] Marilee Thakur MD Work Phone: [facility] 08-20-2021 15:53-0400 Body weight 110.22 kg Rae Older WAXER TENDER.MANAGER HOTEL Work Phone: [facility] 08-20-2021 15:53-0400 Diastolic blood pressure 78 mm[Hg] Rae Older WAXER TENDER.MANAGER HOTEL Work Phone: [facility] 08-20-2021 15:53-0400 Heart rate 64 /min Rae Older WAXER TENDER.MANAGER HOTEL Work Phone: [facility] 08-20-2021 15:53-0400 Systolic blood pressure 132 mm[Hg] Rae Older WAXER TENDER.MANAGER HOTEL Work Phone: [facility] 06-28-2021 09:56-0400 Body temperature 98.6 [degF] Marilee Thakur MD Work Phone: [facility] 06-28-2021 09:56-0400 Body weight 109.77 kg Marilee Thakur MD Work Phone: [facility] 06-28-2021 09:56-0400 Diastolic blood pressure 86 mm[Hg] Marilee Thakur MD Work Phone: [facility] 06-28-2021 09:56-0400 Heart rate 51 /min Marilee Thakur MD Work Phone: [facility] 06-28-2021 09:56-0400 Respiratory rate 18 /min Marilee Thakur MD Work Phone: [facility] 06-28-2021 09:56-0400 SaO2% (BldA) [Mass fraction] 99 % Marilee Thakur MD Work Phone: [facility] 06-28-2021 09:56-0400 Systolic blood pressure 136 mm[Hg] Marilee Thakur MD Work Phone: [facility] 05-03-2021 11:33-0500 Body mass index (BMI) [Ratio] 50.2 kg/m2 Marilee Thakur Work Phone: EQ-Rqqmrfut-Rnsbzw [facility] 1500 Work Phone: 05-03-2021 11:33-0500 Body surface area Derived from formula 1.88 m2 Marilee Thakur Work Phone: VQ-Dogbnejb-Gupwtz de 1500 Work Phone: 05-03-2021 11:33-0500 Body temperature 97.2 [degF] Marilee Thakur Work Phone: MM-Maiphlwr-Syzwtr de 1500 Work Phone: 05-03-2021 11:33-0500 Body weight 102.65 kg Marilee Thakur Work Phone: OA-Sjtyhqmi-Orndbj de 1500 Work Phone: 05-03-2021 11:33-0500 Diastolic blood pressure 83 mm[Hg] Marilee Reddyta Work Phone: WN-Mulbivxe-Novogm de 1500 Work Phone: 05-03-2021 11:33-0500 Heart rate 83 /min Marilee Reddyta Work Phone: KF-Nrutgaqh-Brfwcx de 1500 Work Phone: 05-03-2021 11:33-0500 Respiratory rate 22 /min Marilee Thakur Work Phone: YA-Gkrcqwta-Jnmtlx de 1500 Work Phone: 05-03-2021 11:33-0500 Systolic blood pressure 136 mm[Hg] Marilee Reddyta Work Phone: WR-Jwnfmltg-Kxeurg de 1500 Work Phone: 11-05-2018 12:32-0400 BMI (Body Mass Index) 52.81 kg/m2 Mima-Luz Beckerillaci YQ-Ecvbnvlq-Yzyslx de Work Phone: 11-05-2018 12:32-0400 Body weight 108 kg Mima-Luz Schillaci UJ-Ygztkajq-Cqmmju de Work Phone: 11-05-2018 12:32-0400 BP Diastolic 97 mm[Hg] Mima-Luz Schillaci BH-Fgasqzoc-Arxxtt de Work Phone: Comment on above: Location: LLE; Position: Sitting 11-05-2018 12:32-0400 BP Systolic 139 mm[Hg] Mima-Luz Schillaci BC-Ppafwudv-Cowgnt de Work Phone: Comment on above: Location: LLE; Position: Sitting 11-05-2018 12:32-0400 BSA (Body Surface Area) 1.92 m2 Mima-Luz Schillaci ET-Nsexuffu-Hskxgw de Work Phone: 11-05-2018 12:32-0400 Height 143 cm Smita Salgado WS-Ztgtuols-Ebqsoy de Work Phone: 11-05-2018 12:32-0400 Pulse (Heart Rate) 62 /min Smita Tejadajhonny PE-Iikgevmx-Hyzsxa de Work Phone: Encounters Encounter Date Encounter Type Care Provider Facility Start: 08-18-2024 ambulatory Tia Gudla Facility:[facility] Start: 08-09-2024 ambulatory Tia Gudla OLS Facili ty:[facility] Start: 08-03-2024 ambulatory Tia Gudla OLS Facili ty:[facility] Start: 07-26-2024 ambulatory Tia Gudla OLS Facili ty:[facility] Start: 07-12-2024 ambulatory Tia Gudla OLS Facili ty:[facility] Start: 07-06-2024 End: 07-06-2024 [facility] Start: 07-06-2024 End: 07-06-2024 Patient encounter procedure Jailene Kirkland [facility] Comment on above: Population Health Na vigation Outreach ([facility] [place] ) Start: 07-05-2024 ambulatory Tia Gudla OLS Facili ty:[facility] Start: 2024 ambulatory Tia Gudla OLS Facili ty:[facility] Start: 06-21-2024 ambulatory Tia Gudla OLS Facili ty:[facility] Start: 06-18-2024 ambulatory Tia Gudla OLS Facili ty:[facility] Start: 06-11-2024 ambulatory Marilee Thakur [facility] Start: 06-03-2024 End: 06-03-2024 Telephone encounter Marilee Thakur MD Work Phone: [facility] [place] Comment on above: Home Health Recertif ication Start: 05-30-2024 End: 06-17-2024 ambulatory FRANKLYN STAPLETON MD Facility:[facility] Start: 05-26-2024 End: 05-26-2024 ambulatory Aakash Manuel RN Nurse [employer] Comment on above: Initial enrollment o rene for Chronic Disease Management Start: 05-20-2024 End: 05-20-2024 Refill Marilee Thakur MD Work Phone: [facility] [place] Comment on above: Refill Request Start: 05-13-2024 End: 05-30-2024 Evaluation and management of inpatient NOEMI WEST MD [facility] Start: 05-12-2024 End: 05-13-2024 Emergency department patient visit NOEMI WEST MD Facility:[facility] Start: 05-10-2024 End: 05-10-2024 ambulatory MIKA KAPLAN Facility:[facility] Start: 05-10-2024 End: 05-10-2024 Patient encounter procedure Mika Kaplan APRN.CNP Work Phone: [facility] [place] Comment on above: Cellulitis of left l ower extremity (Primary Dx); Anxiety; 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) Start: 05-08-2024 End: 05-08-2024 Emergency department patient visit JAMILA DARDEN MD [facility] Start: 05-05-2024 End: 05-06-2024 Telephone encounter Marilee Thakur MD Work Phone: [facility] [place] Comment on above: requesting verbal or fallon Start: 05-04-2024 End: 05-04-2024 ambulatory ISI GOODMAN [facility] Start: 05-04-2024 End: 05-04-2024 Office outpatient visit 15 minutes Isi Goodman MD Work Phone: [facility] Comment on above: Chronic right-sided heart failure (Primary Dx); Right ventricular dysfunction; Prader-Willi syndrome (HHS-HCC); Bilateral lower extremity edema Start: 05-03-2024 End: 05-03-2024 Office consultation new/estab patient 80 min Keely Ordonez MD Work Phone: [facility] Comment on above: Hyperglycemia (Prima ry Dx); Prader-Willi syndrome (HHS-HCC); Hypothyroidism, unspecified type; Hyperlipidemia, unspecified hyperlipidemia type; Class 3 severe obesity with serious comorbidity and body mass index (BMI) of 50.0 to 59.9 in adult, unspecified obesity type Start: 05-03-2024 End: 05-03-2024 ambulatory [facility] Start: 04-29-2024 End: 04-30-2024 Telephone encounter Marilee Thakur MD Work Phone: [facility] [place] Comment on above: Patient Update Start: 04-29-2024 ambulatory Cinthia Torres Facility :[facility] Start: 04-28-2024 End: 05-02-2024 Evaluation and management of inpatient Marbin Lizama Facility:[facility] Start: 04-28-2024 ambulatory Marbin Lizama Fac ility:[facility] Start: 04-27-2024 End: 04-30-2024 Telephone encounter Marilee Thakur MD Work Phone: [facility] [place] Comment on above: Patient Update Start: 04-21-2024 End: 06-21-2024 Follow-up encounter Mika Kaplan APRN.CNP Work Phone: [facility] [place] Comment on above: Results Start: 04-14-2024 End: 04-14-2024 ambulatory MIKA KAPLAN Facility:[facility] Start: 04-14-2024 End: 04-14-2024 Subsequent hospital visit by physician [facility] Work Phone: Radiology Comment on above: Abdominal mass, unsp ecified abdominal location [R19.00] Start: 04-12-2024 End: 04-12-2024 Telephone encounter Marilee Thakur MD Work Phone: [facility] [place] Comment on above: Medication Problem Start: 04-09-2024 End: 04-12-2024 Telephone encounter Marilee Thakur MD Work Phone: [facility] [place] Comment on above: Medication Problem Start: 04-08-2024 End: 04-08-2024 Telephone encounter Marilee Thakur MD Work Phone: [facility] [place] Comment on above: [facility] work Start: 04-06-2024 End: 04-09-2024 Telephone encounter Marilee Thakur MD Work Phone: [facility] [place] Comment on above: Patient Update Start: 04-06-2024 End: 04-06-2024 ambulatory HILDA JEONG Facility:[facility] Start: 04-06-2024 End: 04-06-2024 Patient encounter procedure Hilda Jeong DO Work Phone: Vascular Surgery Comment on above: Lymphedema; Prader-Willi syndrome Start: 04-02-2024 End: 04-02-2024 Telephone encounter Marilee Thakur MD Work Phone: [facility] [place] Comment on above: Orders Start: 04-01-2024 End: 04-01-2024 ambulatory [facility] Facility:[facility] Start: 04-01-2024 End: 04-01-2024 Patient encounter procedure Mika Kaplan APRN.CNP Work Phone: [facility] [place] Comment on above: Acquired hypothyroid ism (Primary Dx); 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); Dysuria; Abdominal mass, unspecified abdominal location; On home oxygen therapy; Uterine prolapse; Hematuria, unspecified type Start: 03-29-2024 End: 03-29-2024 Telephone encounter Marilee Thakur MD Work Phone: [facility] [place] Comment on above: Patient Question Start: 03-24-2024 End: 03-24-2024 Telephone encounter Marilee Thakur MD Work Phone: [facility] [place] Start: 03-23-2024 End: 03-23-2024 [facility] Start: 03-23-2024 End: 03-23-2024 Office outpatient visit 15 minutes Isi Goodman MD Work Phone: [facility] Comment on above: Chronic right-sided heart failure (Primary Dx); Dyspnea on exertion; Morbid obesity (Multi); Prader-Willi syndrome (HHS-HCC); Shortness of breath; Bilateral lower extremity edema Start: 03-23-2024 End: 03-23-2024 ambulatory ISI Russell [facility] Start: 03-16-2024 End: 03-17-2024 Telephone encounter Marilee Thakur MD Work Phone: [facility] [place] Comment on above: Patient Update Start: 03-12-2024 End: 03-12-2024 Telephone encounter Marilee Thakur MD Work Phone: [facility] [place] Comment on above: Patient Update Start: 03-12-2024 End: 03-12-2024 ambulatory RAJESH CORONA Facility:[facility] Start: 03-12-2024 End: 03-12-2024 Patient encounter procedure Rajesh Corona MD Work Phone: [facility] [place] Comment on above: Weight gain (Primary Dx); Acute on chronic diastolic congestive heart failure (HCC); Lymphedema of right lower extremity; Lymphedema of left lower extremity; Allergic to bees; Bee allergy status; 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); Lymphedema; Prader-Willi syndrome Start: 03-11-2024 End: 03-11-2024 Telephone encounter Mika Kaplan APRN.CNP Work Phone: [facility] [place] Comment on above: Medication Question Start: 03-09-2024 End: 03-12-2024 ambulatory Marilee Thakur MD Work Phone: [facility] [place] Start: 03-09-2024 End: 03-12-2024 Telephone encounter Marilee Thakur MD Work Phone: [facility] [place] Comment on above: Order Request Start: 02-28-2024 ambulatory Magnolia Cullen [facility] Start: 02-28-2024 End: 03-01-2024 Evaluation and management of inpatient Magnolia Cullen Facility:[facility] Start: 02-27-2024 End: 02-27-2024 Patient Outreach Bradley Flores RN Work Phone: Nurse [employer] Comment on above: Initial phone contac t for Transitional Care Management Start: 02-27-2024 End: 02-27-2024 Emergency department patient visit JAMILA DARDEN MD [facility] Start: 02-25-2024 ambulatory [facility] Start: 02-24-2024 End: 02-24-2024 ambulatory [facility] Start: 02-24-2024 End: 02-26-2024 Evaluation and management of inpatient Magnolia Cullen Facility:[facility] Start: 02-24-2024 ambulatory Cindy Leicester [facility] Start: 02-24-2024 End: 02-24-2024 Telephone encounter Marilee Thakur MD Work Phone: [facility] [place] Comment on above: Patient Update Start: 02-23-2024 End: 02-23-2024 Telephone encounter Marilee Thakur MD Work Phone: [facility] [place] Comment on above: [employer] work, verbal order Start: 02-20-2024 End: 02-20-2024 Patient Outreach Bradley Flores RN Work Phone: Nurse [employer] Comment on above: Initial phone contac t for Transitional Care Management Start: 02-17-2024 ambulatory Marbin Lizama Fac ility:[facility] Start: 02-17-2024 End: 02-19-2024 Evaluation and management of inpatient Marbin Lizama Facility:[facility] Start: 02-16-2024 End: 02-16-2024 ambulatory [facility] Facility:[facility] Start: 02-16-2024 End: 02-16-2024 Office outpatient visit 25 minutes Marilee Thakur MD Work Phone: [facility] [place] Comment on above: Acute systolic conge stive heart failure (HCC) (Primary Dx); Lymphedema; Hypotension, unspecified hypotension type; Acute on chronic diastolic congestive heart failure (HCC); Chronic obstructive pulmonary disease, unspecified COPD type (HCC); Hypothalamic hypogonadism (HCC); Prader-Willi syndrome Start: 02-13-2024 End: 02-13-2024 ambulatory MIKA OLDER Facility:[facility] Start: 02-10-2024 End: 02-10-2024 Telephone encounter Marilee Thakur MD Work Phone: [facility] [place] Comment on above: [facility] work-verbal orders Start: 02-09-2024 End: 02-09-2024 Refill Marilee Thakur MD Work Phone: [facility] [place] Comment on above: Refill Request Start: 02-06-2024 End: 02-06-2024 ambulatory MARILEE THAKUR Facility:[facility] Start: 02-06-2024 End: 02-06-2024 Transitional care manage srvc 7 day discharge Marilee Thakur MD Work Phone: [facility] [place] Comment on above: Right-sided congesti ve heart failure secondary to left-sided congestive heart failure (HCC) (Primary Dx); Acute on chronic diastolic congestive heart failure (HCC); Nonrheumatic mitral valve regurgitation; Pulmonary hypertension (HCC); Chronic obstructive pulmonary disease, unspecified COPD type (HCC); Hypothalamic hypogonadism (HCC); Anasarca Start: 02-04-2024 End: 02-04-2024 Patient Outreach Bradley Flores RN Work Phone: Nurse [employer] Comment on above: Weekly phone contact (Recurring) for Transitional Care Management Start: 02-03-2024 End: 02-04-2024 Telephone encounter Marilee Thakur MD Work Phone: [facility] [place] Comment on above: Home Health Orders Start: 02-02-2024 End: 02-02-2024 Refill Marilee Thakur MD Work Phone: [facility] [place] Comment on above: Refill Request Start: 01-28-2024 End: 01-28-2024 Patient Outreach Bradley Flores RN Work Phone: Nurse [employer] Comment on above: Initial phone contac t for Transitional Care Management Start: 01-27-2024 End: 01-27-2024 Subsequent hospital visit by physician Chilango Herrera [facility] Comment on above: Dyspnea on exertion; Bilateral lower extremity edema Start: 01-27-2024 End: 01-27-2024 ambulatory [facility] Start: 01-23-2024 End: 01-23-2024 Telephone encounter Mika Kaplan APRN.CNP Work Phone: [facility] [place] Comment on above: Patient Update Start: 01-23-2024 End: 01-26-2024 Evaluation and management of inpatient Cinthia Torres Facility:[facility] Start: 01-22-2024 End: 01-22-2024 ambulatory Martell Garland RN Work Phone: Nurse [employer] Management Start: 01-22-2024 End: 01-23-2024 Telephone encounter Marilee Thakur MD Work Phone: [facility] [place] Comment on above: Request for referral to PT/OT Start: 01-22-2024 End: 01-22-2024 Telephone follow-up Martell Garland RN Work Phone: Nurse [employer] Comment on above: Transition Of Care ( TCM [facility] Follow-up Day 20) Started Weekly phone contact (Recurring) for Transitional Care Management Start: 01-20-2024 End: 01-20-2024 ambulatory MARILEE NOLAND [facility] Start: 01-20-2024 End: [facility] Start: 01-20-2024 End: 01-20-2024 Office outpatient new 45 minutes Isi Goodman MD Work Phone: [facility] Comment on above: Acute on chronic rig ht-sided heart failure (Primary Dx); Dyspnea on exertion; Morbid obesity (Multi); Prader-Willi syndrome (HHS-HCC); Shortness of breath; Bilateral lower extremity edema; Pulmonary hypertension (Multi) Start: 01-19-2024 End: 01-21-2024 Telephone encounter Marilee Thakur MD Work Phone: [facility] [place] Comment on above: Patient Update Start: 01-13-2024 End: 01-14-2024 Telephone encounter Marilee Thakur MD Work Phone: [facility] [place] Comment on above: weight increase Start: 01-12-2024 End: 01-12-2024 Telephone encounter Marilee Thakur MD Work Phone: [facility] [place] Comment on above: Orders Start: 01-12-2024 End: 01-12-2024 ambulatory [facility] Facility:[facility] Start: 01-12-2024 End: 01-12-2024 Transitional care manage srvc 14 day discharge Marilee Thakur MD Work Phone: [facility] [place] Comment on above: Hospital discharge f ollow-up (Primary Dx); Encounter for immunization; Acute congestive heart failure, unspecified heart failure type (HCC); Pulmonary hypertension (HCC); Right ventricular dysfunction Start: 01-08-2024 End: 01-08-2024 Emergency department patient visit [facility] Start: 01-07-2024 End: 01-07-2024 Telephone encounter Marilee Thakur MD Work Phone: [facility] [place] Comment on above: Patient Update; weig ht increasing Start: 01-06-2024 End: 01-08-2024 Patient Outreach Martell Garland RN Work Phone: Nurse [employer] Comment on above: Transition Of Care ( TCM [facility] Discharge 01/01/25) Initial phone contact for Transitional Care Management, Started Weekly phone contact (Recurring) for Transitional Care Management Patient Update Start: 12-26-2023 End: 01-02-2024 Evaluation and management of inpatient [facility] Start: 12-26-2023 ambulatory [facility] Facility[facility] Start: 12-25-2023 End: 12-26-2023 Telephone encounter Marilee Thakur MD Work Phone: Internal [place] Comment on above: Patient Update Start: 12-23-2023 End: 12-23-2023 Emergency department patient visit [facility] Start: 12-22-2023 End: 12-22-2023 Telephone encounter Marilee Thakur MD Work Phone: [facility] [place] Comment on above: Medication Question Start: 12-21-2023 End: 12-21-2023 Emergency department patient visit TABATHA PAGE DO [facility] Start: 12-18-2023 End: 12-22-2023 Telephone encounter Marilee Thakur MD Work Phone: [facility] [place] Comment on above: Medication Problem Start: 12-17-2023 End: 12-17-2023 Telephone encounter Marilee Thakur MD Work Phone: [facility] [place] Comment on above: Patient Update Start: 12-12-2023 End: 12-12-2023 Telephone encounter Marilee Thakur MD Work Phone: [facility] [place] Comment on above: weight gain Start: 12-05-2023 End: 12-08-2023 Telephone encounter Marilee Thakur MD Work Phone: [facility] [place] Comment on above: recert patient for s killed nursing service Start: 12-04-2023 End: 12-04-2023 ambulatory [facility] Start: 11-24-2023 End: 11-24-2023 Refill Marilee Thakur MD Work Phone: [facility] [place] Comment on above: Refill Request Start: 11-18-2023 End: 11-18-2023 Office outpatient visit 25 minutes Marilee Thakur MD Work Phone: [facility] [place] Comment on above: Lymphedema (Primary Dx) Start: 11-18-2023 End: 11-18-2023 ambulatory MARILEE THAKUR Facility:[facility] Start: 11-18-2023 End: 11-18-2023 ambulatory [facility] Facility:[facility] Start: 11-13-2023 End: 11-13-2023 Telephone encounter Mika Kaplan APRN.MANAGER HOTEL Work Phone: [facility] [place] Comment on above: Results Start: 11-13-2023 End: 11-13-2023 ambulatory MIKA KAPLAN Facility:[facility] Start: 11-13-2023 End: 11-13-2023 Patient encounter procedure Mika Kaplan APRN.MANAGER HOTEL Work Phone: [facility] [place] Comment on above: Cellulitis of left l ower extremity (Primary Dx); Pain of left lower extremity; Edema, unspecified type Start: 11-12-2023 End: 11-13-2023 Telephone encounter Marilee Thakur MD Work Phone: [facility] [place] Comment on above: Patient Update Start: 10-30-2023 End: 10-31-2023 Emergency department patient visit [facility] Facility:[facility] Start: 10-25-2023 End: 10-25-2023 ambulatory [facility] Facility:[facility] Start: 10-09-2023 Telephone encounter Marilee hughes MD Work Phone: [facility] [place] Comment on above: recert orders Patient Update Start: 09-19-2023 Refill Marilee Thakur M D Work Phone: [facility] [place] Comment on above: Refill Request Start: 09-17-2023 End: 09-17-2023 ambulatory [facility] Facility:[facility] [facility] Start: 08-22-2023 Refill Marilee Reddyta M D Work Phone: [facility] [place] Comment on above: Refill Request Start: 08-11-2023 Refill Mika MinayaMANAGER HOTEL Work Phone: [facility] [place] Comment on above: Refill Request Start: 08-07-2023 Telephone encounter Marilee hughes MD Work Phone: [facility] [place] Start: 08-06-2023 Refill Marilee Reddyta M D Work Phone: Family [facility] Comment on above: Refill Request Start: 07-28-2023 Refill Marilee Reddyta M D Work Phone: [facility] [place] Comment on above: error Start: 07-21-2023 Refill Marilee Ganta M D Work Phone: [facility] [place] Comment on above: Refill Request Start: 07-07-2023 Refill Latesha NORIEGAMANAGER HOTEL Work Phone: [facility] [place] Comment on above: Refill Request Start: 07-04-2023 End: 07-04-[address] Marilee Thakur Work Phone: [facility] Work Phone: Start: 07-04-2023 End: 07-04-[address] Marilee Thakur Work Phone: [facility] Work Phone: Start: 06-12-2023 Refill Mika Older WAXER TENDER .MANAGER HOTEL Work Phone: Family [facility] [place] Comment on above: Refill Request Start: 06-02-2023 End: 06-02-[address] Marilee Thakur Work Phone: [facility] Work Phone: Start: 05-30-2023 Telephone encounter Mika Kaplan WAXER TENDER.MANAGER HOTEL Work Phone: [facility] [place] Comment on above: Orders Start: 05-26-2023 Telephone encounter Marilee hughes MD Work Phone: [facility] [place] Comment on above: Insurance Authorizat ion Start: 02-04-2023 Refill Mika Older WAXER TENDER .MANAGER HOTEL Work Phone: [facility] [place] Comment on above: Refill Request Start: 01-20-2023 Refill Marilee Bowling Work Phone: [facility] [place] Comment on above: Refill Request Start: 12-12-2022 Refill Marilee Bowling Work Phone: [facility] [place] Comment on above: Refill Request Start: 12-05-2022 Office outpatient vi sit 40 minutes Marilee Thakur Work Phone: [facility] Work Phone: Start: 10-23-2022 End: 10-23-2022 Refill Mika Older WAXER TENDER.MANAGER HOTEL Work Phone: [facility] [place] Comment on above: Refill Request Lymphedema (Primary Dx); Obstructive sleep apnea syndrome; Acquired hypothyroidism; Mild intermittent asthma without complication Start: 10-10-2022 Telephone encounter Marilee hughes MD Work Phone: Internal [facility] Comment on above: Patient Question Start: 10-08-2022 ambulatory Marilee Bowling Work Phone: [facility] [place] Start: 10-08-2022 Telephone encounter Marilee hughes MD Work Phone: [facility] [place] Comment on above: Medication Problem Start: 08-26-2022 Refill Marilee Bowling Work Phone: Internal [facility] [place] Comment on above: Refill Request Start: 08-23-2022 Refill Mika Older WAXER TENDER .MANAGER HOTEL Work Phone: Internal [facility] Comment on above: Refill Request Start: 08-07-2022 Refill Mika Older WAXER TENDER .MANAGER HOTEL Work Phone: Internal [facility] Comment on above: Refill Request Start: 07-18-2022 Refill Marilee Bowling Work Phone: [address] [place] [address] Comment on above: Refill Request Start: 06-18-2022 End: 06-18-[address] Marilee Thakur Work Phone: [facility] Work Phone: Start: 06-18-2022 End: 06-18-[address] Marilee Thakur Work Phone: [facility] Start: 06-06-2022 Telephone encounter Marilee hughes MD Work Phone: [facility] Comment on above: Orders (Medication A dministration Consent ) Start: 06-04-2022 Refill Mika Older WAXER TENDER .MANAGER HOTEL Work Phone: [facility] Comment on above: Refill Request Start: 05-27-2022 End: 05-27-[address] Marilee Thakur Work Phone: [facility] Start: 05-15-2022 Refill Mika Older WAXER TENDER .MANAGER HOTEL Work Phone: [facility] [place] Comment on above: Refill Request Start: 05-02-2022 End: 05-02-2022 Patient encounter procedure Marilee Thakur MD Work Phone: [facility] [place] Comment on above: Annual physical exam (Primary Dx); Hypothalamic hypogonadism (HCC); Prader-Willi syndrome; Obstructive sleep apnea syndrome; Mild intermittent asthma without complication; Acquired hypothyroidism; Lymphedema of left lower extremity Start: 03-21-2022 End: 03-21-2022 Patient encounter procedure Mika Kaplan APRN.MANAGER HOTEL Work Phone: [facility] [place] Comment on above: Bilateral chronic kn ee pain (Primary Dx); Acute cough Start: 02-05-2022 Refill Mika MinayaMANAGER HOTEL Work Phone: [facility] [place] Comment on above: Refill Request Start: 01-29-2022 End: 01-29-2022 Patient encounter procedure Marilee Thakur MD Work Phone: [facility] [place] Comment on above: Obstructive sleep ap shelby syndrome (Primary Dx); Encounter for immunization; Mild intermittent asthma without complication; Acquired hypothyroidism; Lymphedema of right lower extremity; Lymphedema of left lower extremity; Sleep deprivation Start: 01-07-2022 Telephone encounter Marilee hughes MD Work Phone: [facility] [place] Comment on above: Orders; handicap cristina card rx Start: 12-13-2021 Telephone encounter Marilee hughes MD Work Phone: [facility] [place] Comment on above: Patient Question Start: 11-29-2021 Telephone encounter Marilee hughes MD Work Phone: [facility] [place] Comment on above: Orders Start: 11-29-2021 Patient encounter procedure Marilee Thakur Work Phone: [facility] [address] DO Work Phone: Start: 10-29-2021 End: 10-29-2021 Patient encounter procedure Marilee Thakur MD Work Phone: [facility] [place] Comment on above: Prader-Willi syndrom e (Primary Dx); Skin ulcer, limited to breakdown of skin (HCC); Pedal edema; Mild persistent asthma without complication; Obstructive sleep apnea syndrome Start: 09-20-2021 Refill Marilee Bowling Work Phone: [facility] [place] Comment on above: Refill Request Start: 09-04-2021 Refill Yazan CRISTOBALN.MANAGER HOTEL Work Phone: [facility] [place] Comment on above: Refill Request Start: 08-29-2021 Telephone encounter Marilee hughes MD Work Phone: [facility] [place] Comment on above: Home health update Start: 08-20-2021 End: 08-20-2021 Patient encounter procedure Are Older WAXER TENDER.MANAGER HOTEL Work Phone: [facility] [place] Comment on above: Skin ulcer of left t high, limited to breakdown of skin (HCC) (Primary Dx) Start: 08-14-2021 Refill Yazan CRISTOBALN.MANAGER HOTEL Work Phone: [facility] [place] Comment on above: Refill Request Start: 07-06-2021 Telephone encounter Marilee hughes MD Work Phone: [facility] [place] Comment on above: Order request Start: 06-28-2021 Telephone encounter Marilee hughes MD Work Phone: [facility] [place] Comment on above: PT Order Question Start: 06-28-2021 End: 06-28-2021 Patient encounter procedure Marilee Thakur MD Work Phone: [facility] [place] Comment on above: Prader-Willi syndrom e (Primary Dx); SOB (shortness of breath); Physical therapy evaluation, initial Start: 06-28-2021 End: 06-28-2021 Patient encounter status Marilee Thakur MD Work Phone: [facility] [place] Start: 06-22-2021 Telephone encounter Marilee hughes MD Work Phone: [facility] [place] Comment on above: [facility] work (verbal order needed) Start: 06-13-2021 Telephone encounter Marilee hughes MD Work Phone: [facility] [place] Comment on above: Forms Start: 06-06-2021 Telephone encounter Marilee hughes MD Work Phone: [facility] [place] Comment on above: Results Start: 05-31-2021 End: 05-31-2021 Subsequent hospital visit by physician Transportation Bl 2 Radiology Comment on above: Left groin pain [R10 .32] Start: 05-03-2021 Nutrition therapy Marilee hughes Work Phone: [facility] [address] Work Phone: Start: 05-03-2021 Patient encounter procedure Marilee Thakur Work Phone: [facility] [address] Work Phone: Start: 12-02-2019 Patient encounter procedure [facility] Work Phone: Start: 08-05-2019 Patient encounter procedure [facility] Work Phone: Start: 05-06-2019 Patient encounter procedure [facility] Work Phone: Start: 11-05-2018 Patient encounter procedure Mima-Luz Schillaci IS-Fvgpchgn-Xiodgrqe Work Phone: Start: 05-07-2018 Patient encounter procedure Mima-Luz Schillaci KR-Lyxgxpth-Lehotbrv Work Phone: Start: 09-04-2017 Patient encounter procedure Mima-Luz Schillaci EW-Ginkmewi-Awwrcvlp Work Phone: Start: 01-01-2017 End: 01-01-2017 Ambulatory [facility] Start: 12-31-2016 Patient encounter procedure Mima-Luz Schillaci ZC-Khruxchr-Milyxlfq Work Phone: Start: 12-13-2016 Patient encounter procedure Mima-Luz Schillaci YV-Aqtozvqd-Jykigqpd Work Phone: Start: 12-10-2016 Patient encounter procedure Mima-Luz Schillaci TX-Exuaavxu-Fvhfglbm Work Phone: Start: 12-05-2016 Patient encounter procedure Mima-Luz Schillaci OD-Xiularwc-Kwgotbnc Work Phone: Procedures Date Procedure Procedure Detail Performing Clinician Start: 05-04-2024 Hemoglobin glycosylated a1c Keely Ordonez MD Work Phone: Start: 05-04-2024 Renal function panel Ma tracey Ordonez MD Work Phone: Start: 05-04-2024 End: 05-04-2024 Thyrotropin [Units/volume] in Serum or Plasma Keely Ordonez MD Work Phone: Start: 05-04-2024 Thyroxine (T4) free [Mass/volume] in Serum or Plasma Keely Ordonez MD Work Phone: Start: 04-01-2024 Urnls dip stick/tabl et rgnt auto w/o microscopy Mika Eusebio WAXER TENDER.MANAGER HOTEL Work Phone: Start: 01-27-2024 Echo tthrc r-t 2d w/ wom-mode compl spec&colr d Isi Goodman MD Work Phone: Start: 07-04-2023 Screening mammography Dash Thakur Work Phone: Start: 12-05-2022 Medical nutrition re-assmt&ivntj indiv ea 15 m Marilee Thakur Work Phone: Start: 06-18-2022 Screening mammography Dash Thakur Work Phone: Start: 01-29-2022 PFIZER-BIONTECH COVI D-19 BIVALENT BOOSTER VACCINE, AGE 12+ YR Marilee Thakur MD Work Phone: Start: 10-29-2021 Adult depression scr eening assessment Marilee Thakur MD Work Phone: Start: 05-31-2021 Us compl joint r-t w /image documentation Marilee Thakur MD Work Phone: Start: 04-17-2020 Lipid 1996 panel - S ulises or Plasma Isi Goodman MD Work Phone: Start: 04-17-2020 Thyrotropin [Units/v olume] in Serum or Plasma Isi Goodman MD Work Phone: Start: 12-11-2019 Echocardiography Lexus Jackson Start: 12-06-2019 25 hydroxy includes fractions if performed Lexus Jackson Start: 12-06-2019 EKG study Lexus pickering Start: 12-06-2019 Hemoglobin glycosylated a1c Lexus Jackson Start: 12-06-2019 Hepatic function panel Lexus Jackson Start: 12-06-2019 Lipid panel Lexus pickering Start: 12-06-2019 Renal function panel La chelsi Jackson Start: 12-06-2019 TSH WITH REFLEX TO F REE T4 IF ABNORMAL Lexus Jackson Start: 12-06-2019 Urnls dip stick/tabl et rgnt auto w/o microscopy Lexus Jackson Start: 05-25-2018 Adult depression scr eening assessment Marilee Thakur MD Work Phone: Echocardiography NOEMI STARK CH, MD Comment on above: Summary: 1. Left ventricle: The cavity size is normal. Wall thickness is normal. Systolic function is normal. The estimated ejection fraction is 60-65%. Wall motion is normal; there are no regional wall motion abnormalities. Diastolic dysfunction present but unable to assess severity. 2. Ventricular septum: Septal motion is paradoxical. 3. Right ventricle: The cavity size is increased. Wall thickness is normal. Systolic function is moderately reduced by visual assessment. But normal by TAPSE. Systolic pressure is severely increased. The RV systolic pressure by Doppler is 78 mm Hg. 4. Right atrium: The atrium is moderately dilated. The estimated right atrial pressure is 15 mm Hg. 5. Hepatic vein: Doppler signals show prominent flow reversal end diastole. History of No histor y of surgery Lexus Jackson No history of surgery Marilee Thakur Work Phone: Plan of Treatment Date Care Activity Detail Author Start: 2032 Zoster Vaccines (1 of 2) Zoster Vacc skyla (1 of 2) [facility] Start: 05-22-2026 HPV TESTING HPV TESTING [facility] Start: 03-15-2027 PAP TESTING PAP TESTING [facility] Start: 05-22-2026 Screening for malign ant neoplasm of cervix [facility] Start: 05-10-2025 Annual PCP Team Negotiations Director brenda Disease Visit Annual PCP Team Chronic Disease Visit [facility] Start: 05-04-2025 Creatinine measurement Creatinine [facility] Start: 05-04-2025 Potassium measurement Potassium [facility] Start: 05-04-2025 Thyroid stimulating hormone measurement TSH Level [facility] Start: 04-17-2025 Lipid panel Lipid Panel [facility] Start: 04-01-2025 Annual PCP Team Negotiations Director brenda Disease Visit Annual PCP Team Chronic Disease Visit [facility] Start: 03-23-2025 Creatinine measurement Creatinine [facility] Start: 03-23-2025 Potassium measurement Potassium [facility] Start: 03-12-2025 Annual PCP Team Negotiations Director brenda Disease Visit Annual PCP Team Chronic Disease Visit [facility] Start: 02-15-2025 Annual PCP Team Negotiations Director brenda Disease Visit Annual PCP Team Chronic Disease Visit [facility] Start: 02-05-2025 Annual PCP Team Negotiations Director brenda Disease Visit Annual PCP Team Chronic Disease Visit [facility] Start: 01-26-2025 Echocardiography Echocardiogram [facility] Start: 01-19-2025 Creatinine measurement Creatinine [facility] Start: 01-19-2025 Potassium measurement Potassium [facility] Start: 01-11-2025 Annual PCP Team Negotiations Director brenda Disease Visit Annual PCP Team Chronic Disease Visit [facility] Start: 01-09-2025 DTaP/Tdap/Td Vaccine s (3 - Td or Tdap) DTaP/Tdap/Td Vaccines (3 - Td or Tdap) [facility] Start: 01-09-2025 Urine microalbumin profile [facility] Start: 11-17-2024 Annual PCP Team Negotiations Director brenda Disease Visit Annual PCP Team Chronic Disease Visit [facility] Start: 11-12-2024 Annual PCP Team Negotiations Director brenda Disease Visit Annual PCP Team Chronic Disease Visit [facility] Start: 10-06-2024 End: 10-06-2024 Telemedicine consultation with patient 10/06/2024 10:20 AM EDT Telemedicine [facility] [address] [place] [address] [place] [address] [address] Department [place] [address] [facility] Start: 10-05-2024 End: 10-05-2024 Patient encounter procedure 10/05/2024 10:30 AM EDT Office Visit Vascular Surgery [address] [place] [address] Hilda Jeong, [address] [place] [address] 6 month follow up Vascular Surgery Comment on above: 6 month follow up Start: 07-03-2024 Screening for malign ant neoplasm of breast Mammogram Screening [facility] Start: 07-01-2024 End: 07-01-2024 ambulatory 07/01/2024 9:30 AM EDT Multidisciplinary Visit [facility] [address] [place] [address] [place] [address] [place] [address] [facility] [place] [address] [facility] Start: 2024 End: 2024 Patient encounter procedure 2024 12:20 PM EDT Office Visit [facility] [place] [address] [place] [address] Mika Kaplan APRN.MANAGER HOTEL [address] [place] [address] 3 Month follow up [facility] [place] Comment on above: 3 Month follow up Start: 06-22-2024 End: 06-22-2024 Patient encounter procedure 06/22/2024 11:30 AM EDT Office Visit [facility] [address] [facility] [address] [place] [phone] Isi Goodman MD [address] [place] [address] [facility] Start: 06-17-2024 End: 06-17-2024 Patient encounter procedure 06/17/2024 11:30 AM EDT Office Visit [facility] [address] [place] [phone] Isi Goodman MD [address] [place] [address] [facility] Start: 06-03-2024 End: 06-03-2024 ambulatory 06/03/2024 10:30 AM EDT Multidisciplinary Visit [facility] [address] [place] [address] [place] [address] [place] [address] [facility] [place] [address] [facility] Start: 05-17-2024 End: 05-17-2024 Patient encounter procedure 05/17/2024 3:40 PM EDT Office Visit [facility] [place] [address] [place] [address] Marilee Thakur MD [address] [place] [address] 1 week cellulitis follow up [facility] [place] Comment on above: 1 week cellulitis fo llow up Start: 05-13-2024 End: 05-13-2024 Patient encounter procedure 05/13/2024 10:45 AM EST Appointment Radiology [address] [place], [place] [id number] Soft tissue mass [M79.89] Radiology Comment on above: Soft tissue mass [M7 9.89] Start: 05-10-2024 End: 05-10-2024 Patient encounter procedure 05/10/2024 1:40 PM EST Office Visit [facility] [place] [address] [place] [address] Mika Kaplan APRN.MANAGER HOTEL [address] [place] [address] Anxiety per Mother [facility] [place] Comment on above: Anxiety per Mother Start: 05-06-2024 End: 05-06-2024 ambulatory 05/06/2024 11:30 AM EST Multidisciplinary Visit [facility] [address] [place] [address] [place] [address] [place] [address] [facility] [place] [address] [facility] Start: 05-03-2024 End: 05-03-2024 Patient encounter procedure 05/03/2024 3:00 PM EST Office Visit [facility] [address] [place] [address] [place] [address] [place] [address] Department [place] [address] [facility] Start: 05-03-2024 End: 05-03-2025 Corticotropin [Mass/volume] in Plasma [facility] Work Phone: Comment on above: Expected: 05/03/2024 (Approximate), Expires: 05/03/2025 Start: 05-03-2024 End: 05-03-2025 Cortisol [Mass or Moles/volume] in Serum or Plasma --AM peak specimen [facility] Work Phone: Comment on above: Expected: 05/03/2024 (Approximate), Expires: 05/03/2025 Start: 05-03-2024 End: 05-03-2025 Lipid 1996 panel - Serum or Plasma Lipid Panel Lab Routine Prader-Willi syndrome ([facility]-HCC) Hyperlipidemia, unspecified hyperlipidemia type Expected: 05/03/2024 (Approximate), Expires: 05/03/2025 [facility] Service [facility] Work Phone: Comment on above: Expected: 05/03/2024 (Approximate), Expires: 05/03/2025 Start: 04-14-2024 End: 04-14-2024 Patient encounter procedure 04/14/2024 10:00 AM EST Appointment Radiology [address] [place] [address] 2 small spots to left side of abdomen in soft tissue Radiology Comment on above: 2 small spots to lef t side of abdomen in soft tissue Start: 04-06-2024 End: 04-06-2024 Patient encounter procedure 04/06/2024 10:00 AM EST Office Visit Vascular Surgery [address] [place] [address] Hilda Jeong, DO [address] [place] [address] 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, Prader-Willi Syndrome Vascular Surgery Comment on above: 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, Prader-Willi Syndrome Start: 04-01-2024 End: 07-01-2024 CBC panel - Blood by Automated count [facility] Work Phone: Comment on above: Expected: 04/01/2024 , Expires: 07/01/2024 Start: 04-01-2024 End: 04-01-2024 Patient encounter procedure 04/01/2024 11:00 AM EST Office Visit [facility] [place] [address] [place], [place] [id number] Mika Kaplan APRN.MANAGER HOTEL [address] [place] [address] PHYSICAL [facility] [place] Comment on above: PHYSICAL Start: 03-23-2024 End: 03-23-2024 Patient encounter procedure 03/23/2024 10:30 AM EST Office Visit [facility] [address] [place] [phone] Isi Goodman MD [address] [facility] [address] [place] [address] [facility] Start: 03-22-2024 End: 03-22-2024 Patient encounter procedure 03/22/2024 1:00 PM EST Office Visit [facility] [place] [address] [facility], [place] [phone] Mika Kaplan APRN.MANAGER HOTEL [address] [facility] [place] [phone] physical [facility] [place] Comment on above: physical Start: 03-19-2024 Annual PCP Team Negotiations Director brenda Disease Visit Annual PCP Team Chronic Disease Visit [facility] Start: 03-12-2024 End: 03-12-2024 Patient encounter procedure 03/12/2024 9:40 AM EST Office Visit [facility] [place] [address] [facility], [place] [phone] Rajesh Corona MD [address] [place] [address] Weight gain off diuretic. See TE 03/11/24. [facility] [place] Comment on above: Weight gain off diur etic. See TE 03/11/24. Start: 03-09-2024 End: 06-08-2024 Thyrotropin [Units/volume] in Serum or Plasma THYROID STIMULATING HORMONE Lab Routine Acquired hypothyroidism Expected: 03/09/2024, Expires: 06/08/2024 [facility] Work Phone: Comment on above: Expected: 03/09/2024 , Expires: 06/08/2024 Start: 02-24-2024 End: 02-24-2024 Patient encounter procedure 02/24/2024 3:40 PM EST Office Visit [facility] [place] [address] [facility], [place] [phone] Marilee Thakur MD [address] [facility] [place] [address] [facility] D[facility]C 02/18 DEJA [facility] [place] Comment on above: [facility] D/C 02/18 A KI Start: 02-20-2024 End: 02-20-2024 Patient encounter procedure 02/20/2024 9:00 AM EST Office Visit [facility] [place] [address] [place], [place] [address] Marilee Thakur MD [address] [place] [address] 3 mo follow up; BL lymphedema [facility] [place] Comment on above: 3 mo follow up; BL l ymphedema Start: 02-16-2024 End: 02-16-2024 Patient encounter procedure 02/16/2024 3:00 PM EST Office Visit [facility] [place] [address] [place], [place] [address] Marilee Thakur MD [address] [place] [address] follow up [facility] [place] Comment on above: follow up Start: 02-11-2024 End: 05-12-2024 CBC W Auto Differential panel - Blood COMPLETE BLOOD COUNT AND DIFFERENTIAL Lab Routine Acute congestive heart failure, unspecified heart failure type (HCC) Expected: 02/11/2024, Expires: 05/12/2024 [facility] Work Phone: Comment on above: Expected: 02/11/2024 , Expires: 05/12/2024 Start: 02-11-2024 End: 05-12-2024 Comprehensive metabolic 2000 panel - Serum or Plasma COMPREHENSIVE METABOLIC PANEL Lab Routine Acute congestive heart failure, unspecified heart failure type (HCC) Expected: 02/11/2024, Expires: 05/12/2024 [facility] Comment on above: Expected: 02/11/2024 , Expires: 05/12/2024 Start: 02-06-2024 End: 05-07-2024 Basic metabolic 2000 panel - Serum or Plasma BASIC METABOLIC PANEL Lab Routine 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) Expected: 02/06/2024, Expires: 05/07/2024 [facility] Comment on above: Expected: 02/06/2024 , Expires: 05/07/2024 Start: 02-06-2024 End: 05-07-2024 Magnesium [Mass/volume] in Serum or Plasma MAGNESIUM Lab Routine 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) Expected: 02/06/2024, Expires: 05/07/2024 [facility] Work Phone: Comment on above: Expected: 02/06/2024 , Expires: 05/07/2024 Start: 02-06-2024 End: 02-06-2024 Patient encounter procedure 02/06/2024 11:40 AM EST Office Visit [facility] [place] [address] [place], [place] [phone] Marilee Thakur MD [address] [place], [place] [id number] hospital follow up [facility] [place] Comment on above: hospital follow up Start: 01-27-2024 End: 01-27-2024 Patient encounter procedure 01/27/2024 10:00 AM EST Appointment [facility] [address] [address] [facility] [address] [place] [phone] [facility] Start: 01-20-2024 End: 01-19-2025 Comprehensive metabolic 2000 panel - Serum or Plasma Comprehensive metabolic panel Lab Routine Dyspnea on exertion Expected: 01/20/2024 (Approximate), Expires: 01/19/2025 [facility] Work Phone: Comment on above: Expected: 01/20/2024 (Approximate), Expires: 01/19/2025 Start: 01-20-2024 End: 01-19-2025 Natriuretic peptide B [Mass/volume] in Blood B-Type Natriuretic Peptide Lab Routine Dyspnea on exertion Bilateral lower extremity edema Expected: 01/20/2024 (Approximate), Expires: 01/19/2025 [facility] Work Phone: Comment on above: Expected: 01/20/2024 (Approximate), Expires: 01/19/2025 Start: 01-20-2024 End: 01-19-2026 US Heart Transthoracic Transthoracic Echo Complete Echocardiography Routine Dyspnea on exertion Bilateral lower extremity edema Expected: 01/20/2024 (Approximate), Expires: 01/19/2026 [facility] Service [facility] Work Phone: Comment on above: Expected: 01/20/2024 (Approximate), Expires: 01/19/2026 Start: 01-12-2024 End: 01-12-2024 Patient encounter procedure 01/12/2024 9:00 AM EST Office Visit [facility] [place] [address] [facility] [place], [place] [id number] Marilee Thakur MD [address] [facility], [place] [id number] [facility] follow up shortness of breath, edema, 30 pounds fluid, discharged 01/01 [facility] [place] Comment on above: [facility] follow up shortn ess of breath, edema, 30 pounds fluid, discharged 01/01 Start: 01-08-2024 End: 04-08-2024 Basic metabolic 2000 panel - Serum or Plasma BASIC METABOLIC PANEL Lab Routine Medication management Expected: 01/08/2024, Expires: 04/08/2024 [facility] Work Phone: Comment on above: Expected: 01/08/2024 , Expires: 04/08/2024 Start: 01-02-2024 End: 01-02-2024 Patient encounter procedure 01/02/2024 11:20 AM EDT Office Visit [facility] [place] [address] [facility] [place], [place] [id number] Marilee Thakur MD [address] [facility] [place] [address] [facility] f/u 12-20-. s/o SOB [facility] [place] Comment on above: [facility] f/u 12-08-24. s/o SOB Start: 01-01-2024 End: 01-01-2024 Patient encounter procedure 01/01/2024 3:20 PM EDT Office Visit [facility] [place] [address] [place] [address] Marilee Thakur MD [address] [place] [address] [facility] f/u 12-21-23. s/o SOB [facility] [place] Comment on above: [facility] f/u 12-08. s/o SOB Start: 11-18-2023 End: 11-18-2023 Patient encounter procedure 11/18/2023 3:40 PM EDT Office Visit [facility] [place] [address] [place] [address] Marilee Thakur MD [address] [place] [address] compression hose, needs to be set up with a compression class [facility] [place] Comment on above: compression hose, ne eds to be set up with a compression class Start: 11-09-2023 Covid-19 Vaccine ( season) Covid-19 Vaccine ( season) [facility] Start: 11-09-2023 Covid-19 Vaccine ( season) Covid-19 Vaccine ( season) [facility] Start: 11-09-2023 Influenza vaccination C [facility] Start: 10-24-2023 ANNUAL PCP TEAM NON DESTRUCTIVE TESTING ENGINEER BRENDA DISEASE VISIT ANNUAL PCP TEAM CHRONIC DISEASE VISIT [facility] Start: 07-02-2023 ANNUAL PCP TEAM NON DESTRUCTIVE TESTING ENGINEER BRENDA DISEASE VISIT ANNUAL PCP TEAM CHRONIC DISEASE VISIT [facility] Start: 05-02-2023 ANNUAL PCP TEAM NON DESTRUCTIVE TESTING ENGINEER BRENDA DISEASE VISIT ANNUAL PCP TEAM CHRONIC DISEASE VISIT [facility] Start: 03-21-2023 ANNUAL PCP TEAM NON DESTRUCTIVE TESTING ENGINEER BRENDA DISEASE VISIT ANNUAL PCP TEAM CHRONIC DISEASE VISIT [facility] Start: 03-10-2023 Behavioral Health Screening Behavioral Health Screening [facility] Start: 03-10-2023 Depression Assessment Depression Ass essment [facility] Start: 01-29-2023 ANNUAL PCP TEAM NON DESTRUCTIVE TESTING ENGINEER BRENDA DISEASE VISIT ANNUAL PCP TEAM CHRONIC DISEASE VISIT [facility] Start: 12-13-2022 Diabetes mellitus screening Diabetes Screening [facility] Start: 12-05-2022 JOSLYN, Provider : Teresa Mohamud, Status: Pen, Time: 10:30 AM JOSLYN, Provider: Teresa Mohamud, Status: Pen, Time: 10:30 AM [facility] [address] DO Work Phone: Start: 11-08-2022 Covid-19 Vaccine () Covid-19 Vaccine () [facility] Start: 11-08-2022 Influenza vaccination C [facility] Start: 10-29-2022 Adult depression screening assessment DEPRESSION SCREENING [facility] Start: 10-29-2022 ANNUAL PCP TEAM NON DESTRUCTIVE TESTING ENGINEER BRENDA DISEASE VISIT ANNUAL PCP TEAM CHRONIC DISEASE VISIT [facility] Start: 10-08-2022 End: 12-08-2022 Basic metabolic 2000 panel - Serum or Plasma BASIC METABOLIC PNL Lab Routine Medication management Expected: 10/08/2022, Expires: 12/08/2022 [facility] Work Phone: Comment on above: Expected: 10/08/2022 , Expires: 12/08/2022 Start: 10-08-2022 End: 12-08-2022 Thyrotropin [Units/volume] in Serum or Plasma TSH BLD Lab Routine Acquired hypothyroidism Expected: 10/08/2022, Expires: 12/08/2022 [facility] Work Phone: Comment on above: Expected: 10/08/2022 , Expires: 12/08/2022 Start: 08-20-2022 ANNUAL PCP TEAM NON DESTRUCTIVE TESTING ENGINEER BRENDA DISEASE VISIT ANNUAL PCP TEAM CHRONIC DISEASE VISIT [facility] Start: 2022 Mammography [facility] Start: 2022 Screening for malign ant neoplasm of breast [facility] Start: 06-28-2022 ANNUAL PCP TEAM NON DESTRUCTIVE TESTING ENGINEER BRENDA DISEASE VISIT ANNUAL PCP TEAM CHRONIC DISEASE VISIT [facility] Start: 04-23-2022 ANNUAL PCP TEAM NON DESTRUCTIVE TESTING ENGINEER BRENDA DISEASE VISIT ANNUAL PCP TEAM CHRONIC DISEASE VISIT [facility] Start: 03-10-2022 DEPRESSION ASSESSMENT DEPRESSION ASS ESSMENT [facility] Start: 11-29-2021 End: 01-29-2022 25-hydroxyvitamin D3 [Mass/volume] in Serum or Plasma VITAMIN D 25 HYDROXY Lab Routine Vitamin D deficiency Expected: 11/29/2021, Expires: 01/29/2022 [facility] Work Phone: Comment on above: Expected: 11/29/2021 , Expires: 01/29/2022 Start: 11-29-2021 End: 01-29-2022 CBC W Auto Differential panel - Blood CBC + DIFF Lab Routine Prader-Willi syndrome Expected: 11/29/2021, Expires: 01/29/2022 [facility] Work Phone: Comment on above: Expected: 11/29/2021 , Expires: 01/29/2022 Start: 11-29-2021 End: 01-29-2022 Comprehensive metabolic 2000 panel - Serum or Plasma COMP METABOLIC PANEL Lab Routine Encounter for screening for diabetes mellitus Expected: 11/29/2021, Expires: 01/29/2022 [facility] Work Phone: Comment on above: Expected: 11/29/2021 , Expires: 01/29/2022 Start: 11-29-2021 End: 01-29-2022 Hemoglobin A1c in Blood HGB A1C Lab Routine Elevated blood sugar Expected: 11/29/2021, Expires: 01/29/2022 [facility] Work Phone: Comment on above: Expected: 11/29/2021 , Expires: 01/29/2022 Start: 11-29-2021 End: 01-29-2022 Lipid 1996 panel - Serum or Plasma LIPID PANEL BASIC Lab Routine Lipid screening Expected: 11/29/2021, Expires: 01/29/2022 [facility] Work Phone: Comment on above: Expected: 11/29/2021 , Expires: 01/29/2022 Start: 11-29-2021 End: 01-29-2022 Thyrotropin [Units/volume] in Serum or Plasma TSH BLD Lab Routine Hypothyroidism, unspecified type Expected: 11/29/2021, Expires: 01/29/2022 [facility] Work Phone: Comment on above: Expected: 11/29/2021 , Expires: 01/29/2022 Start: 11-08-2021 Influenza vaccination C [facility] Start: 10-31-2021 FUV, Provider: Teresa Mohamud, Status: Pen, Time: 11:30 AM FUV, Provider: Teresa Mohamud, Status: Pen, Time: 11:30 AM [id number] 1500 Work Phone: Start: 04-17-2021 Creatinine measurement Creatinine Le everardo [facility] Start: 04-17-2021 Potassium measurement Potassium Leve l [facility] Start: 04-17-2021 Thyroid stimulating hormone measurement TSH Level [facility] Start: 03-10-2021 DEPRESSION ASSESSMENT DEPRESSION ASS ESSMENT [facility] Start: 12-13-2020 COVID-19 VACCINE (3 - Booster for Moderna series) COVID-19 VACCINE (3 - Booster for Moderna series) [facility] Start: 11-08-2020 Influenza vaccination INFLUENZA (#1) [facility] Start: 09-07-2020 COVID-19 VACCINE (3 - Booster for Moderna series) COVID-19 VACCINE (3 - Booster for Moderna series) [facility] Start: 12-06-2019 25 hydroxy includes fractions if performed Vitamin D 25-Hydroxy [facility] [employer] Work Phone: Start: 12-06-2019 Echocardiography [facility] [employer] Work Phone: Start: 12-06-2019 EKG study Electrocardiogram EKG [facility] [employer] Work Phone: Start: 12-06-2019 HbA1c (Bld) [Mass fraction] Hemoglobin A1C [facility] [employer] Work Phone: Start: 12-06-2019 Hepatic function panel [facility]unct [facility] Work [facility]: Start: 12-06-2019 Lipid panel Lipid Panel [facility] Work [facility]: Start: 12-06-2019 Urea, electrolytes a nd creatinine measurement Renal Function Panel [facility] Work [facility]: Start: 12-06-2019 Urnls dip stick/tabl et rgnt auto w/o microscopy Urinalysis [facility] [employer] Work Phone: Start: 05-26-2019 Adult depression screening assessment DEPRESSION SCREENING [facility] Start: 12-31-2017 Echocardiography Echocardiogram [facility] Start: 2012 Zoledronic acid therapy Alpha- 1 Antitrypsin Deficiency Screening [facility] Start: 04-11-2007 PNEUMOCOCCAL (2 - PCV) PNEUMOCOCCAL (2 - PCV) [facility] Start: 04-11-2007 Pneumococcal vaccination [facility] Start: 04-11-2007 Pneumococcal Vaccine : Pediatrics (0 to 5 Years) and At-Risk Patients (6 to 64 Years) (2 of 2 - PCV) Pneumococcal Vaccine: Pediatrics (0 to 5 Years) and At-Risk Patients (6 to 64 Years) (2 of 2 - PCV) [facility] Start: 04-11-2007 Pneumococcal Vaccine : Pediatrics and At-Risk Adult Patients (2 of 2 - PCV) Pneumococcal Vaccine: Pediatrics and At-Risk Adult Patients (2 of 2 - PCV) [facility] Start: 07-01-2003 Screening for malign ant neoplasm of cervix [facility] Start: 2001 Hepatitis B Vaccine (1 of 3 - 19+ 3-dose series) Hepatitis B Vaccine (1 of 3 - 19+ 3-dose series) [facility] Start: 2001 Hepatitis B Vaccines (1 of 3 - 19+ 3-dose series) Hepatitis B Vaccines (1 of 3 - 19+ 3-dose series) [facility] Start: 2000 Anxiety Screening Anxiety Screening [facility] Start: 2000 Depression Screening Depression Scre ening [facility] Start: 2000 Hepatitis C screening Hepatitis C Sc reening [facility] Start: 2000 SPIROMETRY SPIROMETRY [facility] Start: 07-01-1995 Varicella vaccination Varicell a Vaccines (1 of 2 - 13+ 2-dose series) [facility] Start: 07-01-1983 MMR Vaccines (1 of 1 - Standard series) MMR Vaccines (1 of 1 - Standard series) [facility] Start: 1982 HEPATITIS B (1 of 3 - 3-dose series) HEPATITIS B (1 of 3 - 3-dose series) [facility] Start: 1982 Hepatitis B Vaccine (1 of 3 - 3-dose series) Hepatitis B Vaccine (1 of 3 - 3-dose series) [facility] Start: 1982 HIV screening HIV Screening [facility] Start: 1982 Medicare Annual Well ness Visit Medicare Annual Wellness Visit (AWV) [facility] Bacteria identified in Urine by Culture BACTERIAL CULTURE, URINE Microbiology Routine Dysuria Hematuria, unspecified type 04/01/2024 11:51 AM [facility] End: 06-28-2022 Echocardiography ECHO Cardiology Routine Prader-Willi syndrome SOB (shortness of breath) 1 Occurrences starting 06/28/2021 until 06/28/2022 [facility] Work Phone: Comment on above: 1 Occurrences starti ng 06/28/2021 until 06/28/2022 Urinalysis complete panel - Urine URINALYSIS, WITH MICROSCOPIC Lab Routine Dysuria Hematuria, unspecified type 04/01/2024 11:51 AM EST [facility] End: 05-01-2025 US Abdomen US SOFT TISSUE ABDOMEN Radiology Routine Abdominal mass, unspecified abdominal location 1 Occurrences starting 04/01/2024 until 05/01/2025 [facility] Comment on above: 1 Occurrences starti ng 04/01/2024 until 05/01/2025 US Abdomen US SOFT TISSUE A BDOMEN Radiology Routine Abdominal mass, unspecified abdominal location 04/14/2024 11:30 AM EST [facility] Work Phone: End: 05-21-2025 US Abdomen US SOFT TISSUE ABDOMEN Radiology Routine Soft tissue mass 1 Occurrences starting 04/21/2024 until 05/21/2025 [facility] Work Phone: Comment on above: 1 Occurrences starti ng 04/21/2024 until 05/21/2025 [facility] NEGATED: Highlighted row has been ruled out! Planned Goals not documented [facility] Work Phone: Immunizations Immunization Date Immunization Notes Care Provider Shani abdias 01-12-2024 influenza, seasonal, injectable Marilee Thakur MD Work Phone: [facility] 01-29-2022 COVID-19 booster vaccine, age 12+ yr, bivalent (PFIZER-BIONTECH) Marilee Thakur MD Work Phone: [facility] 07-13-2020 COVID-19 vaccine, fu ll dose (MODERNA) Marilee Thakur MD Work Phone: [facility] Work Phone: 06-15-2020 COVID-19 vaccine, fu ll dose (MODERNA) Marilee Thakur MD Work Phone: [facility] Work Phone: 12-22-2019 influenza, injectabl e, quadrivalent, contains preservative Marilee Thakur MD Work Phone: [facility] Work Phone: 12-22-2019 influenza virus vaccine, unspecified formulation Marilee Thakur MD Work Phone: [facility] 01-19-2019 influenza, injectabl e, quadrivalent, contains preservative Marilee Thakur MD Work Phone: [facility] 11-26-2017 influenza, injectabl e, quadrivalent, preservative free Marilee Thakur MD Work Phone: [facility] Work Phone: 01-27-2017 influenza, injectabl e, quadrivalent, contains preservative Marilee Thakur MD Work Phone: [facility] Work Phone: 12-13-2015 influenza, injectabl e, quadrivalent, contains preservative Marilee Thakur MD Work Phone: [facility] 01-09-2015 tetanus toxoid, redu abdelrahman diphtheria toxoid, and acellular pertussis vaccine, adsorbed Marilee Thakur MD Work Phone: [facility] Work Phone: 12-14-2014 influenza, injectabl e, quadrivalent, contains preservative Marilee Thakur MD Work Phone: [facility] 12-13-2013 influenza, seasonal, injectable Marilee Thakur MD Work Phone: [facility] 01-01-2013 influenza virus vaccine, unspecified formulation Marilee Thakur MD Work Phone: [facility] Work Phone: 12-13-2010 influenza virus vaccine, unspecified formulation Marilee Thakur MD Work Phone: [facility] 05-25-2010 tuberculin skin test ; purified protein derivative solution, intradermal Marilee Thakur MD Work Phone: [facility] 01-30-2010 influenza virus vaccine, unspecified formulation Marilee Thakur MD Work Phone: [facility] Work Phone: 05-29-2009 tuberculin skin test ; purified protein derivative solution, intradermal Marilee Thakur MD Work Phone: [facility] Work Phone: 12-27-2008 influenza virus vaccine, unspecified formulation Marilee Thakur MD Work Phone: [facility] 02-03-2008 influenza virus vaccine, unspecified formulation Marilee Thakur MD Work Phone: [facility] 01-06-2007 influenza virus vaccine, unspecified formulation Marilee Thakur MD Work Phone: [facility] Work Phone: 04-11-2006 pneumococcal polysaccharide vaccine, 23 valent Marilee Thakur MD Work Phone: [facility] Work Phone: 01-28-2006 influenza virus vaccine, unspecified formulation Marilee Thakur MD Work Phone: [facility] 11-14-2003 tetanus and diphther ia toxoids, adsorbed, preservative free, for adult use (2 Lf of tetanus toxoid and 2 Lf of diphtheria toxoid) Marilee Thakur MD Work Phone: [facility] Work Phone: NEGATED: Highlighted row has not occurred!10--2021 influenza, injectable, quadrivalent, contains preservative Marilee Thakur MD Work Phone: [facility] Work Phone: Payers Date Payer Category Payer Unknown 2024 Unknown [id number] 2023 Self-pay [id number] 2015 Medicaid MEDICAID [facility] MEDICAID [id number] 2015-Present [phone] [address] [place] [address] Medicaid [id number] 2015 Medicaid [id number] 2013 Medicaid [id number] 2007 Medicare MEDICARE MEDICAR E A AND B [id number] 2007-Present [phone] [address] [address] [place] [address] Medicare [id number] 2007 Medicare [id number] 1.13.159.2.7.3.6 [id number] 2007 Medicare [id number] 1982 Unknown [id number] 2.16.840.1.199181.3.579.2.5 1982 Unknown [id number] 2.16.840.1.726158.3.579.2.1245 1982 Unknown [id number] 2.16.840.1.614439.3.579.2.627 1982 Unknown [id number] 2.840.1.065233.3.579.2.62 1982 Unknown [id number] 04.25.830.1.793914.3.579.2. 1982 Unknown [id number] 04.25.830.1.749474.3.579.2.62 1982 Unknown [id number] .1.372852.3.579.2.1246 1982 Unknown [id number] 04.25.830.1.177037.3.579.2.1246 1982 Unknown [id number] .1.443561.3.579.2.1246 1982 Unknown [id number] .1.561814.3.579.2.1246 1982 Unknown [id number] .1.024361.3.579.2. 1982 Unknown [id number] .1.595365.3.579.2.1243 1982 Unknown [id number] .1.281687.3.579.2.1243 1982 Unknown [id number] .1.476162.3.579.2.12403-10-1900 Unknown [id number] 04.25.830.1.469805.3.579.2.627 Medicare [id number] Unknown [id number] 04.25.830.1.253871.3.579.2.462 Unknown [id number] 840.1.932729.3.579.2.462 Unknown [id number] 840.1.014734.3.579.2.462 Unknown [id number] 04.25.830.1.641517.3.579.2.462 Unknown [id number] 2.16.840.1.905478.3.579.2.462 Unknown [id number] 2.16.840.1.205228.3.579.2.462 Unknown [id number] 2.16.840.1.839012.3.579.2.462 Unknown [id number] 2.16.840.1.923782.3.579.2.462 Unknown [id number] 2.16.840.1.039004.3.579.2.462 Unknown [id number] 2.16.840.1.728131.3.579.2.462 Unknown [id number] 2.16.840.1.561683.3.579.2.462 Unknown [id number] 2.16.840.1.100019.3.579.2.462 Unknown [id number] 2.16.840.1.987032.3.579.2.462 Unknown [id number] 2.16.840.1.081292.3.579.2.462 Unknown [id number] 2.16.840.1.622105.3.579.2.462 Unknown [id number] 2.16.840.1.022049.3.579.2.462 Unknown [id number] 2.16.840.1.587102.3.579.2.462 Unknown [id number] 2.16.840.1.466007.3.579.2.462 Unknown [id number] 2.16.840.1.499047.3.579.2.462 Unknown [id number] 2.16.840.1.875461.3.579.2.462 Unknown [id number] 2.16.840.1.830034.3.579.2.462 Unknown [id number] 2.16.840.1.633953.3.579.2.462 Unknown [id number] 2.16.840.1.490688.3.579.2.462 Unknown [id number] 2.16.840.1.138040.3.579.2.462 Unknown [id number] 2.16.840.1.199756.3.579.2.462 Unknown [id number] 2.16.840.1.157394.3.579.2.462 Unknown [id number] 2.16.840.1.773161.3.579.2.462 Unknown [id number] 2.16.840.1.227670.3.579.2.462 Unknown [id number] 2.16840.1.437531.3.579.2.462 Unknown [id number] 2.16.840.1.826062.3.579.2.462 Unknown [id number] 2.840.1.285381.3.579.2.462 Unknown [id number] 2.840.1.899015.3.579.2.462 Unknown [id number] 2.16840.1.475121.3.579.2.462 Unknown [id number] 2.840.1.601152.3.579.2.462 Unknown [id number] 2.840.1.055292.3.579.2.462 Unknown [id number] 2.840.1.929831.3.579.2.462 Unknown [id number] 2.16840.1.337840.3.579.2.462 Unknown [id number] 2.16840.1.500562.3.579.2.462 Unknown [id number] 2.16840.1.853414.3.579.2.462 Unknown [id number] 2.16840.1.791402.3.579.2.462 Unknown [id number] 2.16.840.1.453735.3.579.2.462 Unknown [id number] 2.16.840.1.593833.3.579.2.462 Unknown [id number] 2.16.840.1.538034.3.579.2.462 Unknown [id number] 2.16.840.1.133895.3.579.2.462 Unknown [id number] 2.16.840.1.598360.3.579.2.462 Unknown [id number] 2.16.840.1.754443.3.579.2.462 Unknown [id number] 2.16.840.1.421915.3.579.2.462 Unknown [id number] 2.16.840.1.959741.3.579.2.462 Unknown [id number] 2.16.840.1.065413.3.579.2.462 Unknown [id number] 2.16.840.1.576948.3.579.2.462 Unknown [id number] 2.16.840.1.367003.3.579.2.462 Unknown [id number] 2.16.840.1.331696.3.579.2.462 Unknown [id number] 2.16.840.1.483289.3.579.2.462 Unknown [id number] 2.16.840.1.458677.3.579.2.462 Social History Date Type Detail Facility Assertion [facility] Start: 07-01-2022 End: 10-23-2022 Lives in senior living Lives in senior living [facility] Work Phone: Start: 11-21-2010 End: 12-04-2023 Tobacco smoking status NHIS Never smoked tobacco [facility] Start: 04-23-2021 End: 04-06-2024 Alcohol intake Current non-drinker of alcohol (finding) [facility] Start: 1980 Sex Assigned At Not on file C [facility] Start: 05-21-2021 End: 05-03-2024 Exposure to SARS-CoV-2 (event) Not sure [facility] Start: 11-21-2010 End: 12-04-2023 Tobacco use and exposure Smokeless tobacco non-user [facility] Work Phone: Start: 05-27-2022 End: 06-02-2023 Tobacco smoking status NHIS Unknown if ever smoked [facility] Start: 09-30-2014 None [facility] Start: 05-10-2019 - [facility] Start: 09-30-2014 Non-smoker [facility] Start: 1980 Sex Assigned At Female W [facility] Start: 07-01-2022 End: 10-23-2022 Tobacco use panel [facility] Work Phone: Adult Depression Screening Assessment 0 [facility] Work Phone: (I/We) worried wheth er (my/our) food would run out before (I/we) got money to buy more. Never true [facility] Work Phone: Start: 05-03-2024 End: 05-04-2024 Alcoholic beverage intake Lifetime non-drinker (finding) [facility] Work Phone: Goals Date Patient Goal Desired Activity /State Personal health goal Functional Status Date Assessment Result Facility 05-30-2024 Functional Status Room check performed [facility] 05-30-2024 Functional Status [facility] 05-30-2024 Functional Status Done [facility] 05-30-2024 Functional Status [facility] 05-29-2024 Functional Status [facility] 05-29-2024 Functional Status Nurse Alfredo morel q2hrs Performed 7am-3pm [facility] 05-29-2024 Functional Status [facility] 05-29-2024 Functional Status Hospital bed [facility] 05-29-2024 Functional Status [facility] 05-29-2024 Functional Status [facility] 05-29-2024 Functional Status [facility] 05-28-2024 Functional Status [facility] 05-28-2024 Functional Status [facility] [facility] 05-27-2024 Functional Status [facility] 05-27-2024 Functional Status Dinner Percent 100 [facility] 05-27-2024 Functional Status [facility] 05-27-2024 Functional Status [facility] 05-27-2024 Functional Status Bed Mobility S upine to Sit Max A [facility] 05-27-2024 Functional Status [facility] 05-26-2024 Functional Status [facility] 05-26-2024 Functional Status [facility] 05-26-2024 Functional Status Patient refused [facility] 05-25-2024 Functional Status [facility] 05-24-2024 Functional Status Evening Snack Percent 100 [facility] 05-24-2024 Functional Status [facility] 05-24-2024 Functional Status [facility] 05-24-2024 Functional Status [facility] 05-23-2024 Functional Status [facility] 05-23-2024 Functional Status [facility] 05-22-2024 Functional Status [facility] 05-22-2024 Functional Status [facility] 05-21-2024 Functional Status Transparent si licone dressing [facility] 05-21-2024 Functional Status [facility] 05-19-2024 Functional Status [facility] 05-18-2024 Functional Status [facility] 05-17-2024 Functional Status [facility] 05-16-2024 Functional Status [facility] 05-16-2024 Functional Status [facility] 05-15-2024 Functional Status [facility] 05-14-2024 Functional Status Maintained [facility] 05-14-2024 Functional Status [facility] 05-13-2024 Functional Status Living Situati on [facility] 05-13-2024 Functional Status Device protect ion, Pain management, Positioning/Turning, Intervention attempted, not successful [facility] 05-08-2024 Functional Status Awake Donald Ram [facility] 02-27-2024 Functional Status Awake Donald Ram [facility] 12-21-2023 Functional Status Ambulation in [facility] 12-21-2023 Functional Status Standard Safet y ID band on, Visitor at bedside [facility] 08-31-2014 Are you deaf, or do you have serious difficulty hearing No 08/31/2014 4:25 PM EDT Rani Cruz Cma No [facility] 08-31-2014 Are you blind, or do you have serious difficulty seeing, even when wearing glasses No 08/31/2014 4:25 PM EDT Rani Cruz Cma No [facility] 08-31-2014 Do you have serious difficulty walking or climbing stairs No 08/31/2014 4:25 PM EDRani Watson Cma No [facility] 08-31-2014 Do you have difficul ty dressing or bathing No 08/31/2014 4:25 PM EDRani Watson Cma No [facility] 05-23-2014 Because of a physica l, mental, or emotional condition, do you have difficulty doing errands alone such as visiting a physician's office or shopping Yes 05/23/2014 3:37 PM EDT Rosina Schofield RN Yes [facility] NEGATED: Highlighted row Functional performance Functional status health issues are not documented Disease QE-Nvtigxwu-Asrgclg e Work Phone: Mental Status Date Assessment Result Facility 05-30-2024 Mental Status Orientation [address] 05-30-2024 Mental Status [facility] 05-29-2024 Mental Status [facility] 05-29-2024 Mental Status Orientation Asse ssment Oriented [address] 05-28-2024 Mental Status [facility] 05-28-2024 Mental Status [facility] 05-08-2024 Mental Status Oriented [address] 02-27-2024 Mental Status Orientation Orie nted x [address] [place] [address] 12-21-2023 Mental Status Orientation [address] 12-21-[address] [facility] 08-31-2014 Because of a physical, mental, or emotional condition, do you have serious difficulty concentrating, remembering, or making decisions Yes 08/31/2014 4:25 PM EDT Rani Cruz Cma Yes [facility] NEGATED: Highlighted row Cognitive function [Interpretation] Cognitive status health issues are not documented Disease GW-Cachoigc-Zwpdbdlv Work Phone: Clinical Notes 01-16-2016 to 07-06-2024 Jailene Kirkland MA - 07/06/2024 8:11 AM EDTTelephone Encounter - Pepper Walsh RN - 06/03/2024 4:10 PM EDTTelephone Encounter - Pepper Walsh RN - 06/03/2024 4:10 PM EDT Note Date & Type Note Facility 07-06-2024 Note HNO ID: [id number] Author: JAILENE KIRKLAND MA Service: ? Author Type: Director Of Collections Type: Progress Notes Filed: 07/06/2024 09:26 Note Text: POPULATION HEALTH NAVIGATION OUTREACH Action/FYI Topic Due (Y or N) Comments Medicare Wellness y PCP Follow up Colorectal Cancer Screening Controlling Blood Pressure A1C HCC Y Flu Vaccine Care Everywhere Reviewed MyChart Activation Updated Appointment Note Reason for Outreach Care Gap/HCC or Scheduling Wellness Visits Care Gaps due: Medicare Annual Wellness Visit Patient Contacted: Spoke to patient/parent/or legal guardian Patient identified by name and : Yes Care Gap/HCC/Scheduling Wellness actions taken: Patient declined: Patient requested call back from navigator/ will call navigator back HCC related Navigation Signature: Jailene Kirkland MA July 06, 2024 8:11 AM [facility] 07-06-2024 History of Presen t illness Narrative POPULATION HEALTH NAVIGATION OUTREACH Action/FYI Topic Due (Y or N) Comments Medicare Wellness y PCP Follow up Colorectal Cancer Screening Controlling Blood Pressure A1C HCC Y Flu Vaccine Care Everywhere Reviewed MyChart Activation Updated Appointment Note Reason for Outreach Care Gap/HCC or Scheduling Wellness Visits Care Gaps due: Medicare Annual Wellness Visit Patient Contacted: Spoke to patient/parent/or legal guardian Patient identified by name and : Yes Care Gap/HCC/Scheduling Wellness actions taken: Patient declined: Patient requested call back from navigator/ will call navigator back HCC related Navigation Signature: Jailene Kirkland MA July 06, 2024 8:11 AM documented in this encounter [facility] 07-06-2024 Note Patient Outreach (NE TNAV) SIA ABDUL ([id number]) 1980 F Date Time Provider Department 07/06/24 JAILENE KIRKLAND NETNAV During your visit today, we recorded the following information about you: Jailene Kirkland MA 07/06/2024 9:26 AM Signed POPULATION HEALTH NAVIGATION OUTREACH Action/ Topic Due (Y or N) Comments Medicare Wellness y PCP Follow up Colorectal Cancer Screening Controlling Blood Pressure A1C HCC Y Flu Vaccine Care Everywhere Reviewed MyChart Activation Updated Appointment Note Reason for Outreach Care Gap/HCC or Scheduling Wellness Visits Care Gaps due: Medicare Annual Wellness Visit Patient Contacted: Spoke to patient/parent/or legal guardian Patient identified by name and : Yes Care Gap/HCC/Scheduling Wellness actions taken: Patient declined: Patient requested call back from navigator/ will call navigator back HCC related Navigation Signature: Jailene Kirkland MA July 06, 2024 8:11 AM Allergies As of Date: 07/06/2024 Noted Allergy Reaction BEE STING 02/28/2023 10 - Anaphylaxis BUMEX (BUMETANIDE) 03/12/2024 6 - Diarrhea 14 - Other: See Comments Comments: chula GUANTIN (PHENYTOIN SODIUM EXTEND*01/28/2006 Date Reviewed: 05/10/2024 Reviewed by: María Avila MA - Fully Assessed Reason for Visit: Population Health Navigation Outreach [3910] Cmt: ACO WORKBENC BLAIR PCSA Prescriptions as of 07/06/2024 - mduwjwt-tumwzguag-sasqvps D3 (OYSTER SHELL CALCIUM-VITAMIN D) 500 mg-5 mcg (200 unit) per tablet Take 1 tablet by mouth two times a day with meals. - sertraline (ZOLOFT) 25 mg tablet Take 1 tablet by mouth once daily. - torsemide (DEMADEX) 20 mg tablet Take an extra 20 a day mgs In addition to current dose of 40 mgs 2 times on days you have more than 5 pounds of water weight gain - fluticasone-vilanterol (BREO ELLIPTA) 100-25 mcg/dose inhaler Inhale 1 Inhalation as instructed once daily. - IRAIDA 0.35 mg tablet Take 1 tablet by mouth once daily. - EPINEPHrine (EPIPEN) 0.3 mg/0.3 mL auto-injector INJECT 1 PEN INTO LATERAL THIGH DIRECTED FOR ALLERGIC REACTIONS TO BEE/WASP STINGS MAY REPEAT IN 5-15 MINUTES IF SYMPTOMS PERSIST * *STAFF REORDER, 4 DAYS IN ADVANCE* - torsemide (DEMADEX) 20 mg tablet Take 2 tablets by mouth two times a day. - MEDICAL SUPPLY Lymphedema compression pump to both legs 1 hour daily. 60 mm Hg. New machine. - mometasone-formoterol (DULERA) 100-5 mcg/actuation inhaler Inhale 2 Puffs as instructed two times a day. - fluticasone (FLONASE) 50 mcg/actuation nasal spray INSTILL 2 SPRAYS IN EACH NOSTRIL DAILY - diphenoxylate-atropine (LOMOTIL) 2.5-0.025 mg per tablet Take 1 tablet by mouth four times a day as needed. - ondansetron (ZOFRAN) 4 mg tablet Take by mouth every 8 hours as needed for nausea/vomiting. - aspirin 81 mg chewable tablet Take 81 mg by mouth once daily. - carvedilol (COREG) 3.125 mg tablet Take 1 tablet by mouth two times a day. - ammonium lactate (LAC-HYDRIN) 12 % cream APPLY TOPICALLY TO AFFECTED AREA(S) ON LEGS AT BEDTIME - multivitamin-ferrous fumarate-folic acid (CERTAVITE-ANTIOXIDANT) Take 1 tablet by mouth once daily. - Khnph-6-HTU-EPA-Fish Oil 1,000 mg (120 mg-180 mg) cap Take 1 capsule by mouth once daily. - levothyroxine (SYNTHROID) 100 mcg tablet take one tablet by mouth daily one hour before breakfast - nystatin (NYAMYC) powder APPLY TOPICALLY TWICE DAILY TO AFFECTED AREA(S) ON ABDOMINAL FOLDS - clotrimazole (LOTRIMIN) 1 % cream APPLY TOPICALLY TO AFFECTED AREA(S) ON BILATERAL GROIN TWICE DAILY - albuterol HFA (VENTOLIN HFA) 90 mcg/actuation inhaler Inhale 2 Puffs as instructed every 4 hours as needed for wheezing/shortness of breath. - acetaminophen (TYLENOL EXTRA STRENGTH) 500 mg tablet Take 2 tablets by mouth every 8 hours as needed for pain (For knee pain). - Gauze Bandage 2 X 2 bndg Apply 1 application to affected area twice daily. - cetirizine (ZYRTEC) 10 mg tablet Take [...] 4pm Dx:Q87.1 Problem List As Of Date 07/06/2024 Noted Resolved Other malaise and fatigue [R53.81, R53.83] 08/06/2005 12/13/2013 Other dyspnea and respiratory abnormality [R06.*08/06/2005 12/13/2013 Other alteration of consciousness [R40.4] 08/06/2005 12/13/2013 WEIGHT GAIN, ABNORMAL [R63.5] 08/06/2005 12/13/2013 Prader-Willi syndrome [Q87.11] 08/27/2005 VENOUS INSUFFICIENCY [I87.2] 08/27/2005 12/14/2014 Mild intermittent asthma without complication [* Allergic rhinitis [J30.9] SLEEP APNEA (more content not included)... [facility] 06-03-2024 Telephone encounter Note Clarence Calderon calling with [facility] to update provider that due to patient having a prolonged stay in hospital, there are discontinuing her home care nursing and therapy orders at this time. Pepper Walsh RN [facility] 06-03-2024 Miscellaneous Notes Clarence Calderon calling with [facility] to update provider that due to patient having a prolonged stay in hospital, there are discontinuing her home care nursing and therapy orders at this time. Pepper Walsh RN documented in this encounter [facility] 05-30-2024 Hospital Discharg e instructions Patient Education 05/30/2024 14:59:15 Heart Failure Action Plan Heart Failure Action Plan A heart failure action plan helps you understand what to do when you have symptoms of heart failure. Follow the plan that was created by you and your health care provider. Review your plan each time you visit your health care provider. Red zone These signs and symptoms mean you should get medical help right away: You have trouble breathing when resting. You have a dry cough that is getting worse. You have swelling or pain in your legs or abdomen that is getting worse. You suddenly gain more than 2 3 lb (0.9 1.4 kg) in a day, or more than 5 lb (2.3 kg) in one week. This amount may be more or less depending on your condition. You have trouble staying awake or you feel confused. You have chest pain. You do not have an appetite. You pass out. If you experience any of these symptoms: Call your local emergency services (911 in the [place] right away or seek help at the emergency department of the nearest hospital. Yellow zone These signs and symptoms mean your condition may be getting worse and you should make some changes: You have trouble breathing when you are active or you need to sleep with extra pillows. You have swelling in your legs or abdomen. You gain 2 3 lb (0.9 1.4 kg) in one day, or 5 lb (2.3 kg) in one week. This amount may be more or less depending on your condition. You get tired easily. You have trouble sleeping. You have a dry cough. If you experience any of these symptoms: Contact your health care provider within the next day. Your health care provider may adjust your medicines. Green zone These signs mean you are doing well and can continue what you are doing: You do not have shortness of breath. You have very little swelling or no new swelling. Your weight is stable (no gain or loss). You have a normal activity level. You do not have chest pain or any other new symptoms. Follow these instructions at home: Take ykmv-nfy-jpdhqln and prescription medicines only as told by your health care provider. Weigh yourself daily. Your target weight is lb ( kg). ?Call your health care provider if you gain more than lb ( kg) in a day, or more than lb ( kg) in one week. Eat a heart-healthy diet. Work with a diet and nutrition program instructor (dietitian) to create an eating plan that is best for you. Keep all follow-up visits as told by your health care provider. This is important. Where to find more information [place] [employer]: www.heart.org Summary Follow the action plan that was created by you and your health care provider. Get help right away if you have any symptoms in the Red zone. This information is not intended to replace advice given to you by your health care provider. Make sure you discuss any questions you have with your health care provider. Document Released: 04/05/2017 Document Revised: 02/06/2018 Document Reviewed: 04/05/2017 [employer] Patient Education 2020 [employer] Follow Up Care 05/12/2024 22:43:19 With:Discharge to [facility], 2pm, Address:Unknown When:1-2 days With:MARILEE THAKUR MD Address: [address] [place] [address]- When:Within 4 Week(s) With:KEELY ORDONEZ MD Address: [address] [place] [address]- [phone] When:Within 4 Week(s) With:FRANKLYN STAPLETON MD Address: [address] [facility] [address] [facility] [place] [address]- [phone] When:Within 4 Week(s) With:ANSELMO FALK MD Address: [address] [facility] [address] [place] [address]- [phone] When:06/04/2024 13:45:00 [facility] 05-30-2024 Note Discharge Instructions Thank you for allowing [facility] to assist you with your healthcare needs. The following is important discharge information regarding your hospital visit. Your Diagnosis Acute exacerbation of CHF (congestive heart failure) Musculoskeletal pain What to do next Instructions From Your Doctor -Continue metoprolol, spironolactone, Bumex, atorvastatin, aspirin for guideline directed therapy. Further GDMT as outpatient. Follow-up with cardiology as outpatient. -Continue budesonide/ipratropium, guaifenesin for pulmonary hygiene. -Continue 1000-calorie diet for weight loss -Continue AVAPS for carbon dioxide retention. Follow-up with pulmonology as outpatient -Continue to follow-up with endocrinology as outpatient. Scheduled Follow-Up Appointments Appointment Type When With Where Contact Information StatusCV OV Hospital Follow Up 06/04/2024 01:45 PM EDT MARCELINO FALK [facility] Confirmed CV OV CHF 06/22/2024 10:30 AM EDT [facility] Confirmed Follow Up Appointments Follow Up with Discharge to [facility], 2pm, When:Within 1-2 days Follow Up with MARILEE THAKUR MD When:In 4 weeks Where:[address] [place] [address]- Follow Up with KEELY ORDONEZ MD When:In 4 weeks Where:[address] [place] [address]- [phone] Follow Up with FRANKLYN STAPLETON MD When:In 4 weeks Where:[address] [facility] [address] [facility] [place] [address] [phone] Follow Up with ANSELMO FALK MD When:06/04/2024 01:45 PM EDT Where:[address] [facility] [address] [facility] [place] [address]- [phone] The Following Activity and Diet Have Been Ordered for You Transfer of Care Activity - Ordered -- Activity As Tolerated, 05/30/24 9:06:00 EDT Transfer of Care Diet - Ordered -- Type of Diet: Regular Diet, Calories Permitted: 1000 kcal, 05/30/24 9:06:00 EDT The Following Equipment Has Been Ordered for You No qualifying data available. The Following Treatments Have Been Ordered for You Discharge Labs No qualifying data available. Discharge Radiology No qualifying data available. Other Therapies No qualifying data available. Post Acute Orders Transfer of Care Code Status - Ordered -- Full Code, Constant Order Transfer of Care Orders Electronically Signed By - Ordered -- 05/30/24 9:06:00 EDT, MISTY HADDAD DO Transfer of Care Oxygen Therapy - Ordered -- Oxygen (CONTINUOUS), Mobile in the Home, Nasal Cannula, 3 liters per minute, 99 month(s), AVAPS Vt 420 cc, EPAP 10, maximum pressure of 30, rate 16. as much as tolerated. NC for feeds/eating/break, 05/30/24 9:06:00 EDT Transfer of Care Prognosis - Ordered -- Fair, Patient Aware: Yes Transfer of Care Rehab Potential - Ordered -- Rehab potential fair, 05/30/24 9:06:50 EDT Someone Will Contact You Regarding These Home Health Referrals No home referrals have been ordered for you. No one will call you. Allergies Bee Stings Dilantin misc non-codified allergy Medications Please ask your primary doctor or pharmacist before taking any other medication not listed, including over the counter drugs, herbal medications, vitamins and or supplements as they may interact with your home medications. What How Much When Why Instructions Last Dose New acetaminophen 650 Milligram by mouth Every 6 hours as needed for Pain, scale 1-3 New atorvastatin (atorvastatin 20 mg oral tablet) 1 tab(s) by mouth Every day Printed Prescription New budesonide (budesonide 0.25 mg/ 2 mL inhalation suspension) 2 Milliliter by inhalation Two (2) times a day Duration: 30 Days Printed Prescription New bumetanide (bumetanide 1 mg oral tablet) 1 tab(s) by mouth Two (2) times a day Duration: 30 Days Printed Prescription New docusate-senna (Senokot S 50 mg-8.6 mg oral tablet) 1 tab(s) by mouth Two (2) times a day Printed Prescription New guaiFENesin (guaiFENesin 600 mg oral tablet, extended release) 1 tab(s) by mouth Two (2) times a day Duration: 14 Days Printed Prescription New ipratropium (ipratropium 500 mcg/ 2.5 mL inhalation solution) 2.5 Milliliter by inhalation Four (4) times a day Duration: 30 Days Printed Prescription New metoprolol (metoprolol succinate 25 mg oral TABLET extended release) 0.5 tab(s) by mouth Once a day Duration: 30 Days Do not crush or chew (controlled release) Printed Prescription New polyethylene glycol 3350 (MiraLax oral powder for reconstitution) 17 gram(s) by mouth Once a day Printed Prescription New spironolactone (Aldactone 25 mg oral tablet) 1 tab(s) by mouth Once a day with a meal Printed Prescription New traMADol (traMADol 50 mg oral tablet) 1 tab(s) by mouth Every 6 hours as needed for Pain, scale 4-6 Musculoskeletal pain Duration: 5 Days Printed Prescription Unchanged ammonium lactate topical (ammonium lactate 12% topical cream) 1 application Topical Daily at bedtime Unchanged aspirin (aspirin 81 mg oral delayed release tablet) 1 tab(s) by mouth Every day Unchanged calcium carbonate (calcium carbonate 500 mg (200 mg elemental calcium) oral tablet, chewable) 1 tab(s) Chewed Two (2) times a day Unchanged clotrimazole topical (clotrimazole 1% topical cream) 1 application Topical Two (2) times a day Unchanged EPINEPHrine (EPINEPHrine 0.3 mg injectable kit) 1 Each Intramuscular As Directed as needed for Allergic reaction Unchanged fluticasone nasal (fluticasone proprionate NASAL 50 mcg/ spray) 1 spray(s) each nostril Once a day (in the morning) Unchanged levothyroxine (levothyroxine 100 mcg (0.1 mg) oral tablet) 1 tab(s) by mouth Once a day Unchanged multivitamin with minerals (Therapeutic Multiple Vitamins with Minerals, Zinc and Elderberry oral tablet, chewable) 1 tab Chewed Once a day Unchanged norethindrone (norethindrone 0.35 mg oral tablet) 1 tab(s) by mouth Once a day Unchanged nystatin topical (nystatin 100,000 units/ g topical powder) 1 application Topical Daily at bedtime Unchanged omega-3 polyunsaturated fatty acids (omega-3 polyunsaturated fatty acids ethyl esters 1000 mg oral capsule) 2 cap by mouth Once a day What How Much When Comments Stop Taking carvedilol (carvedilol 3.125 mg oral tablet) 1 tab(s) by mouth Twice daily with meals Stop Taking fluticasone-vilanterol (Breo Ellipta 100 mcg-25 mcg/ inh inhalation powder) 1 puff(s) by inhalation Every day Stop Taking formoterol-mometasone (Dulera 100 mcg-5 mcg/ inh Metered Dose Inhaler) 2 puff(s) by inhalation Two (2) times a day Stop Taking torsemide (torsemide 20 mg oral tablet) 1 tab(s) by mouth Two (2) times a day Please take this list to your next doctor s visit. Bring all medications you take, including over the counter medications, herbals and other supplements with you to your doctor s visit. Patients and families are reminded to discard old lists and to update any records with all medication providers or retail pharmacies. Education Materials Heart Failure Action Plan A heart failure action plan helps you understand what to do when you have symptoms of heart failure. Follow the plan that was created by you and your health care provider. Review your plan each time you visit your health care provider. Red zone These signs and symptoms mean you should get medical help right away: You have trouble breathing when resting. You have a dry cough that is getting worse. You have swelling or pain in your legs or abdomen that is getting worse. You suddenly gain more than 2 3 lb (0.9 1.4 kg) in a day, or more than 5 lb (2.3 kg) in one week. This amount may be more or less depending on your condition. You have trouble staying awake or you feel confused. You have chest pain. You do not have an appetite. You pass out. If you experience any of these symptoms: Call your local emergency services (911 in the [place] right away or seek help at the emergency department of the nearest hospital. Yellow zone These signs and symptoms mean your condition may be getting worse and you should make some changes: You have trouble breathing when you are active or you need to sleep with extra pillows. You have swelling in your legs or abdomen. You gain 2 3 lb (0.9 1.4 kg) in one day, or 5 lb (2.3 kg) in one week. This amount may be more or less depending on your condition. You get tired easily. You have trouble sleeping. You have a dry cough. If you experience any of these symptoms: Contact your health care provider within the next day. Your health care provider may adjust your medicines. Green zone These signs mean you are doing well and can continue what you are doing: You do not have shortness of breath. You have very little swelling or no new swelling. Your weight is stable (no gain or loss). You have a normal activity level. You do not have chest pain or any other new symptoms. Follow these instructions at home: Take ervg-sjj-jcpjcmd and prescription medicines only as told by your health care provider. Weigh yourself daily. Your target weight is lb ( kg). ? Call your health care provider if you gain more than lb ( kg) in a day, or more than lb ( kg) in one week. Eat a heart-healthy diet. Work with a diet and nutrition program instructor (dietitian) to create an eating plan that is best for you. Keep all follow-up visits as told by your health care provider. This is important. Where to find more information [place] [employer] Association: www.heart.org Summary Follow the action plan that was created by you and your health care provider. Get help right away if you have any symptoms in the Red zone. This information is not intended to replace advice given to you by your health care provider. Make sure you discuss any questions you have with your health care provider. Document Released: 04/05/2017 Document Revised: 02/06/2018 Document Reviewed: 04/05/2017 [employer] Patient Education 2020 [employer] Additional Information VACCINATE! IT SAVES LIVES! Members of the community who have not yet received the COVID-19 vaccine and would like to receive it can visit one of [facility] vaccine clinics. There are many vaccine clinic locations within the [facility]. For locations and available times, please visit [email or web address].o hio.gov/. It is important to note that some COVID mobile vaccine clinics are held outdoors and may be canceled in rainy or stormy conditions. To learn more about pediatric vaccinations (ages 5-11), we invite you to visit the [facility] webpage. [email or web address] To learn more about the COVID-19 vaccine, we invite you to visit the CDC website for a list of frequently asked questions.https://www.cdc.gov/co ronavirus/2019-ncov/vaccines/faq .html [employer] Patient Portal Access Instructions: Stay connected with your healthcare team and access your personal medical information anytime with the [employer] Patient Portal. Please follow the directions below to create your [employer] account: 1.Access the email account you provided upon registration to the hospital/physician office.2.Look for an invitation email from [facility].3.Open the email and access the invitation link: Accept Invitation to [facility].4.Fill in the required perez to create your account. To access your account, visit [employer]The [facility]. Click the blue button labeled Access Patient Portal and then log in with the username and password that you created in the steps above. You will be able to view your test results, lab results, a summary of your visits, upcoming appointments and more. There is also a convenient messaging option where you can send secure messages to your provider. In addition, you will have the ability to download any documents or summaries to your computer and/or send the information securely to a physician. Remember that your healthcare information is confidential, so carefully consider who you will allow to register on the [facility] Patient Portal for access to your information. You can also access the [facility] Patient Portal on the [facility] cristian. Simply click on Patient Portal and then log into your account. If you would like to receive a full copy of your medical records, please contact the [facility] Medical Records Department by calling [phone], Friday through Friday between 8 a.m. and 4:30 p.m. HOW TO SAFELY DISPOSE OF PRESCRIPTION MEDICATIONS [...] Call your local pharmacy or go to [email or web address].Ev[employer] Nutrition/[email or web address] to find one close to you.3.Make use of household items: Use cat litter or old coffee grounds to dispose medications if other options are not available. Mix your drugs with these household products, seal them in an airtight container and throw it into the garbage. Call [facility]: [phone] to be sure your drugs can be disposed of in this way. Some medicines may require a different approach.4.Never flush your medications down the toilet. IF YOU HAVE BEEN PRESCRIBED AN OPIOID FOR PAIN If you have been prescribed [...] have withdrawal symptoms when a medication is stopped, can develop within a few days. KNOW [...] children, family, friends and visitors). The last page of this document has been signed and retained as a CHART COPY. Signatures Patient Education Materials Heart Failure Action Plan Medication Leaflets My discharge plan and instructions have been reviewed and explained to me and I,SIA ABDUL understand my current condition and have read and understand these discharge instructions. I have received a written copy of the plan/instructions. If I have questions, I am aware that I should contact my doctor. 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 Initial rhythm was PEA and two rounds of CPR completed prior to ROSC without any medications. She was emergently intubated and noted to be difficult due to anterior airway and body habitus. She became hypoxic which resolved with multiple Duonebs. She has never been previously intubated. [facility]. More recently, Patient was discharged 05/05 after treatment for volume overload secondary to heart failure exacerbation. 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 Initial lab work showed a pH of 7.527, CO2 of 53, O2 to 78, bicarb of 43 after intubation. CBC showed leukocytosis 17.2 with left shift. UA showed small leukocyte esterase, trace bacteria. CMP showed elevated bicarb 43, creatinine of 1.20, hypoalbuminemia at 3.2, elevated globulins of 5.4, mild transaminitis with an alk phos of 142, AST 73, ALT 76. Lactic acid was 2.5. Troponin 38. proBNP 8761. Mycoplasma was also noted to be positive (IgM). Respiratory panel negative. MRSA negative. Legionella/strep negative. Chest x-ray showed central venous pulmonary congestion with diffuse peribronchial thickening. Given these findings patient was placed on azithromycin Rocephin to cover for the mycoplasma pneumonia. Cardiology was consulted and patient was placed on diuretics. Patient was able to be liberated from mechanical ventilation on 05/14/2024. TTE was performed normal EF positive diastolic dysfunction and RVSP of 78 consistent with diastolic dysfunction with right heart failure/ pulmonary hypertension. Patient transferred to floor on 05/16. Unfortunately on 05/18/2024, patient became more short of breath, was placed on BiPAP and transferred to the CCU. Repeat ABG showed worsening CO2 levels. Central access was obtained and IV Bumex was started. Additionally Beckwith catheter was attempted by urology on 05/18/2024 for IN/OUT monitoring however was extremely difficult. Because patient was voiding well, urology recommended against placement. With continued diuresis, respiratory status did stabilize. At this time she seems to be tolerating BiPAP. Once her respiratory status stabilized, CTA of the chest was completed 05/20/2024 to rule out PE. As expected there findings suggestive of CHF. There are areas confluent with groundglass opacity and bronchial thickening in the lungs which could be pulmonary edema versus infection. Due to stability patient was transferred to stepdown (from CCU critical care). Patient finished azithromycin on 05/22/2024 for mycoplasma pneumonia. Bumex was reduced to 1 mg twice daily for maintenance diuretic and cardiology is currently slowly introducing GDMT. Lower extremity Dopplers were negative for DVT. Due to continued leukocytosis and the possibility of a resistant mycoplasma, patient was transitioned to doxycycline for another 7 days. She continued to have some difficulties with persistent hypercapnia so pulmonology was reconsulted for opinion. Due to her intermittent complaint of right-sided pain, Ultrasound was completed on 05/27/2024 showing no intrahepatic bile duct dilation and a common duct 3 mm making cholecystitis unlikely. Lipase level is normal. At this point, pain seems to be musculoskeletal in nature and supportive care could be continued. Pulmonology recommended transition to nocturnal AVAPS device. Vt 420 cc, EPAP 10, maximum pressure of 30, rate 16. Due to her lack of progress despite maximal therapy with AVAPS, LTAC was consulted. She was accepted in transitioned on 05/30/2024. -> Heart failure team has signed off. Currently on Bumex 1 mg twice daily for maintenance. Continue Aldactone. Further GDMT per cardiology as an outpatient/as tolerated -> Oxygen back to baseline at 3 L. Recommending AVAPS. Vt 420 cc, EPAP 10, maximum pressure of 30, rate 16. LTAC for extended wean. Continues to struggle with persistent hypercapnia/acidosis. Monitor labwork closely as outpt. ->With regards to her pneumonia, patient was on azithromycin from 05/16/2024-05/22/2024 for mycoplasma. Also status post 4 days Rocephin on admission. Due to the severity of her hospitalization and evidence of macrolide resistance developing elsewhere, S/p doxycycline for another 7 days to complete an extended 14-day course for mycoplasma. Currently not on antibiotics. -> With regards to Prader-Willi syndrome, no pharmacologic agent has been shown to help control appetite or binge eating. GLP-1's have been used occasionally but are not well studied. Patient should be followed closely as an outpatient for growth hormone deficiencies, hypogonadism, diabetes (A1c 5.3 this visit), normal TSH this visit, as they are at higher risk for pituitary dysfunction. Additionally she is at high risk for sleep disorders (already planning on sleep study via pulmonology as outpatient). Patient should establish with a Prader-Willi specific treatment center if possible at a large supply. For now okay to start GLP-1 if mother brings this medication in from outside. (She was seeing a supervisor telephone clerks as an outpatient who recommended starting a GLP-1) otherwise 1000-calorie diet as prescribed by her supervisor telephone clerks. Allergies Bee Stings Dilantin misc non-codified allergy Consults Consult to Physician - Ordered -- 05/15/24 14:44:00 ISABELLA GARCIA ATAUL MD, Routine, RHF, pulm htn Consult to Physician - Ordered -- 05/17/24 20:09:00 EDT, TOM NINA MD, Routine, Hypoxia, pulmonary edema, mycoplasma pneumonia. Pt was in ICU and pulm recommended pulmonary follow-up on floor. Consult to Physician - Ordered -- 05/18/24 0:52:00 EDT, MAVIS MASON MD, Routine, PHTN Consult to Physician - Ordered -- 05/18/24 3:22:00 EDT, CHEMO LOPEZ MD, Routine, Difficult beckwith insertion Consult to Physician - Ordered -- 05/21/24 12:14:00 EDT, FRANKLYN STAPLETON MD, Routine, OHS Consult to Physician - Ordered -- 05/22/24 12:14:00 EDT, KAYLAN LUGO MD, Routine, transfer of service Consult to Physician - Ordered -- 05/24/24 13:34:00 EDT, NOEMI WEST MD, Routine, Hypercapnic respiratory failure Consult to Skin Team Nurse - Ordered -- 05/30/24 8:47:00 EDT, Physician Order, complaining of skin lesion near genitals Imaging Results and Diagnostics US Abdomen Complete Result Date: May 27, 2024 Verified By: KYRIE LICEA MD CLINICAL STATEMENT: IMPRESSION: Suboptimal evaluation due to patient factors. No acute abnormality is seen. XR Chest 1 View Result Date: May 25, 2024 Verified By: VANDA Tejada CLINICAL STATEMENT: IMPRESSION: Stable examination and stable support apparatus. CT Angiography Chest w/ Contrast Result Date: May 20, 2024 Verified By: MIKEY WINKLER MD CLINICAL STATEMENT: IMPRESSION: No evidence of pulmonary embolism. Findings suggestive of heart dysfunction. Areas of confluent ground-glassopacity and bronchial thickening in the lungs which could be related, forexample pulmonary edema. Correlate clinically and follow-up to resolution. XR Chest 1 View Result Date: May 19, 2024 Verified By: ESTHER CABALLERO MD CLINICAL STATEMENT: IMPRESSION: Right upper lobe consolidation, slightly worse compared to the prior study.This may represent worsening pneumonia, and follow-up is recommended. XR Chest 1 View Result Date: May 18, 2024 Verified By: ADENIKE FERNANDES, QUAN Campbell CLINICAL STATEMENT: IMPRESSION: Interval right internal jugular central venous catheter placement with itstip overlying the proximal right atrium. No postprocedure pneumothorax. No significant change in bilateral mixed airspace and interstitial opacitiesand small bilateral pleural effusions. I have personally reviewed the images of this examination, and agree with theresident's findings and interpretation. XR Chest 2 Views Result Date: May 17, 2024 Verified By: LORI WESLEY DO CLINICAL STATEMENT: IMPRESSION: No significant change in widespread bilateral mixed interstitial and alveolarairspace disease which may represent pulmonary edema or pneumonia. Stablesuspected small bilateral pleural effusions. XR Chest 1 View Result Date: May 15, 2024 Verified By: QUAN JEONG MD CLINICAL STATEMENT: IMPRESSION: Extensive bilateral lung infiltrates consistent with pneumonia, pulmonaryedema, and/or ARDS. XR Chest 1 View Result Date: May 14, 2024 Verified By: KODY MARINELLI DO CLINICAL STATEMENT: IMPRESSION: Findings above most suggestive of pulmonary edema, relatively similar to theprior exam. Consider infection in the appropriate clinical setting. I have personally reviewed the images of this examination and agree with theresident's findings and interpretation. XR Ankle Minimum 3 Views Right Result Date: May 14, 2024 Verified By: QUAN JEONG MD CLINICAL STATEMENT: IMPRESSION: 1. No acute bone abnormality of the right ankle.2. Marked edema in the right lower leg. XR Chest 1 View Result Date: May 14, 2024 Verified By: QUAN JEONG MD CLINICAL STATEMENT: IMPRESSION: 1. Unchanged bilateral lung infiltrates.2. Small bilateral pleural effusions. XR Chest 1 View Result Date: May 13, 2024 Verified By: KODY MARINELLI DO CLINICAL STATEMENT: IMPRESSION: Endotracheal tube terminates 2.9 cm above the fadumo. Otherwise, stable exam. I have personally reviewed the images of this examination and agree with theresident's findings and interpretation. XR Chest 1 View Result Date: May 13, 2024 Verified By: QUAN JEONG MD CLINICAL STATEMENT: IMPRESSION: 1. Endotracheal tube and enteric tube are in satisfactory position.2. Stable bilateral lung infiltrates. XR Enteric Tube Placement Result Date: May 13, 2024 Verified By: QUAN JEONG MD CLINICAL STATEMENT: IMPRESSION: 1. Endotracheal tube tip is at the level of the fadumo and should beretracted 4 cm.2. Orogastric tube is in satisfactory position.3. Worsening bilateral lung infiltrates. XR Chest 1 View Result Date: May 13, 2024 Verified By: ADENIKE FERNANDES, QUAN Campbell CLINICAL STATEMENT: IMPRESSION: 1. Endotracheal tube tip is at the level of the fadumo and should beretracted 4 cm.2. Orogastric tube is in satisfactory position.3. Worsening bilateral lung infiltrates. Objective Vitals and Measurements T: 36.4 C (Oral) TMIN: 36.1 C (Oral) TMAX: 36.9 C (Oral) HR: 62 RR: 23 (Total) BP: 121/74 SpO2: 92% WT: 141.1 kg Weight Current Weight Dosing Weight: 138.6 kg (05/26/24) Current Weight: 141.1 kg (05/30/24) Dosing Weight: 140.2 kg (05/25/24) Current Weight: 140.6 kg (05/29/24) See today's progress note Code Status Code Status - Ordered -- 05/13/24 1:22:00 EST, Full Code, Constant Order Admission Date 05/13/2024 Discharge Date 05/30/2024 Patient Instructions - Continue metoprolol, spironolactone, Bumex, atorvastatin, aspirin for guideline directed therapy. Further GDMT as outpatient. Follow-up with cardiology as outpatient. -Continue budesonide/ipratropium, guaifenesin for pulmonary hygiene. -Continue 1000-calorie diet for weight loss -Continue AVAPS for carbon dioxide retention. Follow-up with pulmonology as outpatient -Continue to follow-up with endocrinology as outpatient. Medications New Prescription [id number] Milligram by mouth every 6 hours as needed Pain, scale 1-3. atorvastatin (atorvastatin 20 mg oral tablet)1 tab(s) by mouth every day. Refills: 0. budesonide (budesonide 0.25 mg/2 mL inhalation suspension)2 Milliliter by inhalation two (2) times a day for 30 Days. Refills: 0. bumetanide (bumetanide 1 mg oral tablet)1 tab(s) by mouth two (2) times a day for 30 Days. Refills: 0. docusate-senna (Senokot S 50 mg-8.6 mg oral tablet)1 tab(s) by mouth two (2) times a day. Refills: 0. guaiFENesin (guaiFENesin 600 mg oral tablet, extended release)1 tab(s) by mouth two (2) times a day for 14 Days. Refills: 0. ipratropium (ipratropium 500 mcg/2.5 mL inhalation solution)2.5 Milliliter by inhalation four (4) times a day for 30 Days. Refills: 0. metoprolol (metoprolol succinate 25 mg oral TABLET extended release)0.5 tab(s) by mouth once a day for 30 Days. Do not crush or chew (controlled release). Refills: 0. polyethylene glycol 3350 (MiraLax oral powder for reconstitution)17 gram(s) by mouth once a day. Refills: 0. spironolactone (Aldactone 25 mg oral tablet)1 tab(s) by mouth once a day with a meal. Refills: 0. traMADol (traMADol 50 mg oral tablet)1 tab(s) by mouth every 6 hours as needed Pain, scale 4-6 for 5 Days. Refills: 0. Unchanged ammonium lactate topical (ammonium lactate 12% topical cream)1 application Topical daily at bedtime. aspirin (aspirin 81 mg oral delayed release tablet)1 tab(s) by mouth every day. calcium carbonate (calcium carbonate 500 mg (200 mg elemental calcium) oral tablet, chewable)1 tab(s) Chewed two (2) times a day. clotrimazole topical (clotrimazole 1% topical cream)1 application Topical two (2) times a day. EPINEPHrine (EPINEPHrine 0.3 mg injectable kit)1 Each Intramuscular As Directed as needed Allergic reaction. fluticasone nasal (fluticasone proprionate NASAL 50 mcg/ spray)1 spray(s) each nostril once a day (in the morning). levothyroxine (levothyroxine 100 mcg (0.1 mg) oral tablet)1 tab(s) by mouth once a day. multivitamin with minerals (Therapeutic Multiple Vitamins with Minerals, Zinc and Elderberry oral tablet, chewable)1 tab Chewed once a day. norethindrone (norethindrone 0.35 mg oral tablet)1 tab(s) by mouth once a day. nystatin topical (nystatin 100,000 units/g topical powder)1 application Topical daily at bedtime. omega-3 polyunsaturated fatty acids (omega-3 polyunsaturated fatty acids ethyl esters 1000 mg oral capsule)2 cap by mouth once a day. Discontinued carvedilol (carvedilol 3.125 mg oral tablet)1 tab(s) by mouth twice daily with meals. fluticasone-vilanterol (Breo Ellipta 100 mcg-25 mcg/inh inhalation powder)1 puff(s) by inhalation every day. formoterol-mometasone (Dulera 100 mcg-5 mcg/inh Metered Dose Inhaler)2 puff(s) by inhalation two (2) times a day. torsemide (torsemide 20 mg oral tablet)1 tab(s) by mouth two (2) times a day. Follow Up Follow Up with MARILEE THAKUR MD When:In 4 weeks Where:[address] [place] [address]- Follow Up with KEELY ORDONEZ MD When:In 4 weeks Where:[address] [place] [address]- [phone] Follow Up with FRANKLYN STAPLETON MD When:In 4 weeks Where:[address] [facility] [address] [facility] [place] [address] [phone] Follow Up with Discharge to [facility]/ferry terminal agent acute care [facility], , 4pm When:Within 1-2 days Follow Up with ANSELMO FALK MD When:06/04/2024 01:45 PM EDT Where:[address] [place] [address] [address] [facility] [place] [address]- [phone] Follow Up Appointments No qualifying data available. Follow Up Labs/Studies Discharge Labs No Follow-up Labs Discharge Studies No Follow-up Studies Discharge Diet Transfer of Care Diet - Ordered -- Type of Diet: Regular Diet, Calories Permitted: 1000 kcal, 05/30/24 9:06:00 EDT Discharge Activity Transfer of Care Activity - Ordered -- Activity As Tolerated, 05/30/24 9:06:00 EDT Condition on Discharge Stable Readmission Risk/Palliative Score No qualifying data available. Discharge Disposition LTAC Information Provided To Family Time Spent >35 minutes with >50% of the time spent counseling patient and/or coordinating care Digitally Signed by MISTY HADDAD DO on 05/30/2024 09:29 AM [facility] 05-30-2024 Note Date of Service 05/30/2024 Chief Complaint Please see note from 05/29/2024 for full summary Subjective Patient seen and examined this morning. She is complaining of a skin lesion near her genitals. Otherwise she has no complaints. Pain on right side has resolved. Tolerating current diet. Objective Vitals and Measurements T: 36.4 C (Oral) TMIN: 36.1 C (Oral) TMAX: 36.9 C (Oral) HR: 62 RR: 23 (Total) BP: 121/74 SpO2: 92% WT: 141.1 kg Intake and Output 7AM Yesterday to 7AM Today Intake and Output (Last 24 hours) Intake Output Urinary Catheter Output: 1600.00 Stool Count 0.00 Total Summary Total Intake 0.00 Total Output 1600.00 Fluid Balance -1600.00 Physical Exam Constitutional -obese, alert, no gross deformities Head atraumatic, normocephalic Eyes Pupils equal, round, reactive to light, no conjunctival injection, extra ocular movements grossly intact, no scleral icterus Ears, Nose, and Throat trachea midline no lesions Respiratory generally clear, mild crackles lower lung base Cardiovascular regular rate and rhythm without murmurs. Normal S1 and S2. Mild edema lower extremities Gastrointestinal (Abdomen) Bowel sounds present. Soft, nontender Musculoskeletal no obvious deformity, swelling, or clubbing. Skin: Skin normal color, texture and turgor with no lesions or eruptions Weight Current Weight Dosing Weight: 138.6 kg (05/26/24) Current Weight: 141.1 kg (05/30/24) Dosing Weight: 140.2 kg (05/25/24) Current Weight: 140.6 kg (05/29/24) Medications Medications (22) Active Scheduled: (13) atorvastatin 20 mg tablet 20 mg 1 tab(s), Oral, Daily bumetanide 1 mg tablet 1 mg 1 tab(s), Oral, BID docusate-senna (Senokot S) 50 mg-8.6 mg Tablet 2 tab(s), Oral, BID doxycycline hyclate 100 mg Capsule 100 mg 1 cap(s), Oral, BID guaifenesin 600 mg ER 600 mg 1 tab(s), Oral, BID heparin 5,000 units/mL (1 mL) vial 5,000 unit(s) 1 mL, Subcutaneous, q8h levothyroxine 100 mcg tablet 100 mcg 1 tab(s), Oral, qDay lidocaine patch REMOVAL 1 EA, Miscellaneous, q24h lidocaine topical 4% patch 1 patch(es), Transdermal, q24h magnesium sulfate 2 gram(s) 50 mL, IV Piggyback, Once miconazole topical 2% Powder 1 cristian, Topical, qHS polyethylene glycol 3350 - UD packet 17 gram(s) 15 mL, Oral, qDay spironolactone 25 mg tablet 25 mg 1 tab(s), Oral, qDayM Continuous: (0) PRN: (9) acetaminophen 325 mg Tablet 650 mg 2 tab(s), Oral, q6h albuterol - ipratropium 2.5 mg-0.5 mg/3 mL Inhal Jewell UD 3 mL, Inhalation, q2hRT benzocaine-menthol (Cepacol Sore Throat) 15 mg-3.6mg lozenge 1 lozenge(s), Oral, q2h benzonatate 100 mg Capsule 100 mg 1 cap(s), Oral, TID dextrose 50% Solution Disp syringe 50 mL 25 gram(s) 50 mL, IV Push, AsDirected lidocaine topical 2% viscous 100 mL 5 mL, Swish & Spit, achs loratadine 10 mg Tablet 10 mg 1 tab(s), Oral, qDay tramadol 50 mg Tablet 50 mg 1 tab(s), Oral, q6hr tramadol 50 mg Tablet 100 mg 2 tab(s), Oral, q6h Lab Results 05/30 06:32 WBC: 11.4 H Hgb: 10.5 L Hct: 33.4 L Platelet: 161 Neutrophil %: 73.4 05/30 03:52 Glucose Level: 93 Sodium Level: 138 Potassium Level: 4.7 BUN: 13.0 Creatinine Lvl (s): 0.49 L 05/29 04:50 WBC: 12.4 H Hgb: 10.1 L Hct: 31.9 L Platelet: 173 Neutrophil %: 68.0 Glucose Level: 88 Sodium Level: 139 Potassium Level: 5.3 H BUN: 14.0 Creatinine Lvl (s): 0.47 L Imaging Results and Diagnostics US Abdomen Complete Result Date: May 27, 2024 Verified By: KYRIE LICEA MD CLINICAL STATEMENT: IMPRESSION: Suboptimal evaluation due to patient factors. No acute abnormality is seen. XR Chest 1 View Result Date: May 25, 2024 Verified By: VANDA Tejada CLINICAL STATEMENT: IMPRESSION: Stable examination and stable support apparatus. CT Angiography Chest w/ Contrast Result Date: May 20, 2024 Verified By: MIKEY WINKLER MD CLINICAL STATEMENT: IMPRESSION: No evidence of pulmonary embolism. Findings suggestive of heart dysfunction. Areas of confluent ground-glassopacity and bronchial thickening in the lungs which could be related, forexample pulmonary edema. Correlate clinically and follow-up to resolution. XR Chest 1 View Result Date: May 19, 2024 Verified By: ESTHER CABALLERO MD CLINICAL STATEMENT: IMPRESSION: Right upper lobe consolidation, slightly worse compared to the prior study.This may represent worsening pneumonia, and follow-up is recommended. XR Chest 1 View Result Date: May 18, 2024 Verified By: QUAN JEONG MD CLINICAL STATEMENT: IMPRESSION: Interval right internal jugular central venous catheter placement with itstip overlying the proximal right atrium. No postprocedure pneumothorax. No significant change in bilateral mixed airspace and interstitial opacitiesand small bilateral pleural effusions. I have personally reviewed the images of this examination, and agree with theresident's findings and interpretation. XR Chest 2 Views Result Date: May 17, 2024 Verified By: LORI WESLEY DO CLINICAL STATEMENT: IMPRESSION: No significant change in widespread bilateral mixed interstitial and alveolarairspace disease which may represent pulmonary edema or pneumonia. Stablesuspected small bilateral pleural effusions. XR Chest 1 View Result Date: May 15, 2024 Verified By: QUAN JEONG MD CLINICAL STATEMENT: IMPRESSION: Extensive bilateral lung infiltrates consistent with pneumonia, pulmonaryedema, and/or ARDS. XR Chest 1 View Result Date: May 14, 2024 Verified By: KODY MARINELLI DO CLINICAL STATEMENT: IMPRESSION: Findings above most suggestive of pulmonary edema, relatively similar to theprior exam. Consider infection in the appropriate clinical setting. I have personally reviewed the images of this examination and agree with theresident's findings and interpretation. XR Ankle Minimum 3 Views Right Result Date: May 14, 2024 Verified By: QUAN JEONG MD CLINICAL STATEMENT: IMPRESSION: 1. No acute bone abnormality of the right ankle.2. Marked edema in the right lower leg. XR Chest 1 View Result Date: May 14, 2024 Verified By: QUAN JEONG MD CLINICAL STATEMENT: IMPRESSION: 1. Unchanged bilateral lung infiltrates.2. Small bilateral pleural effusions. XR Chest 1 View Result Date: May 13, 2024 Verified By: KODY MARINELLI DO CLINICAL STATEMENT: IMPRESSION: Endotracheal tube terminates 2.9 cm above the fadumo. Otherwise, stable exam. I have personally reviewed the images of this examination and agree with theresident's findings and interpretation. XR Chest 1 View Result Date: May 13, 2024 Verified By: QUAN JEONG MD CLINICAL STATEMENT: IMPRESSION: 1. Endotracheal tube and enteric tube are in satisfactory position.2. Stable bilateral lung infiltrates. XR Enteric Tube Placement Result Date: May 13, 2024 Verified By: QUAN JEONG MD CLINICAL STATEMENT: IMPRESSION: 1. Endotracheal tube tip is at the level of the fadumo and should beretracted 4 cm.2. Orogastric tube is in satisfactory position.3. Worsening bilateral lung infiltrates. XR Chest 1 View Result Date: May 13, 2024 Verified By: QUAN JEONG MD CLINICAL STATEMENT: IMPRESSION: 1. Endotracheal tube tip is at the level of the fadumo and should beretracted 4 cm.2. Orogastric tube is in satisfactory position.3. Worsening bilateral lung infiltrates. EKG No qualifying data available. Assessment/Plan Acute hypoxic/hypercapnic respiratory failure Acute diastolic heart failure with right-sided component, RVP 78 mmHg with hepatic vein reversal. 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 Afebrile, heart rate well-controlled, blood pressure stable, saturating well on 3 L. Remains acidotic with pH of 7.29, CO2 of 94. CBC shows very mild leukocytosis otherwise unremarkable. Renal function remains stable. -Skin team consultation for lesion near genitalia. -Heart failure team has signed off. Currently on Bumex 1 mg twice daily for maintenance. Continue Aldactone. Further GDMT per cardiology as an outpatient. -Pulmonology following. Oxygen back to baseline at 3 L. Recommending AVAPS. Vt 420 cc, EPAP 10, maximum pressure of 30, rate 16. Planning on LTAC for extended wean. Continues to struggle with persistent hypercapnia/acidosis. -With regards to her pneumonia, patient was on azithromycin from 05/16/2024-05/22/2024 for mycoplasma. Also status post 4 days Rocephin on admission. Due to the severity of her hospitalization and evidence of macrolide resistance developing elsewhere, S/p doxycycline for another 7 days to complete an extended 14-day course for mycoplasma. Currently not on antibiotics. -With regards to Prader-Willi syndrome, no pharmacologic agent has been shown to help control appetite or binge eating. GLP-1's have been used occasionally but are not well studied. Patient should be followed closely as an outpatient for growth hormone deficiencies, hypogonadism, diabetes (A1c 5.3 this visit), normal TSH this visit, as they are at higher risk for pituitary dysfunction. Additionally she is at high risk for sleep disorders (already planning on sleep study via pulmonology as outpatient). Patient should establish with a Prader-Willi specific treatment center if possible at a large supply. For now okay to start GLP-1 if mother brings this medication in from outside. Otherwise 1000-calorie diet as prescribed by her supervisor telephone clerks. Level of Care Indication SD monitor (other: specify in note) DVT Prophylaxis Heparin SQ Maintenance IVF Indication NA / No maintenance IVF Indwelling Urinary Catheter Indication NA No indwelling catheter Timeline of Discharge LTAC pending availability. Anticipated DC Disposition detention acute care / [facility] Signed by MISTY HADDAD DO on 05/30/2024 08:49 AM [facility] 05-29-2024 Pulmonary Progres s note Date of Service 05/29/2024 Subjective Appears to be doing much better today. She is awake and alert and conversant. She is smiling. Recognize me when I walked into the room. According to her mom who is at the bedside, she feels that the patient is getting closer to baseline. Using AVAPS device at night and nasal oxygen during the day. The patient is a 43-year-old black female with history of Prader-Willi syndrome resident at the senior living who was admitted with mixed respiratory failure needing intubation on 05/13/2024. She was diagnosed with acute exacerbation of HFpEF and was diuresed and eventually liberated for mechanical ventilation on 05/14/2024 and transferred to the floor. She has remained hypercapnic requiring AVAPS device. Objective Vitals and Measurements T: 36.3 C (Oral) TMIN: 36.1 C (Oral) TMAX: 36.9 C (Oral) HR: 67 RR: 18 BP: 102/64 SpO2: 98% WT: 140.6 kg Physical Exam Lungs are clear bilaterally. Heart regular. Morbidly obese Weight Current Weight Dosing Weight: 138.6 kg (05/26/24) Current Weight: 140.6 kg (05/29/24) Dosing Weight: 140.2 kg (05/25/24) Current Weight: 134.7 kg (05/28/24) Medications Medications (21) Active Scheduled: (12) atorvastatin 20 mg tablet 20 mg 1 tab(s), Oral, Daily bumetanide 1 mg tablet 1 mg 1 tab(s), Oral, BID docusate-senna (Senokot S) 50 mg-8.6 mg Tablet 2 tab(s), Oral, BID doxycycline hyclate 100 mg Capsule 100 mg 1 cap(s), Oral, BID guaifenesin 600 mg ER 600 mg 1 tab(s), Oral, BID heparin 5,000 units/mL (1 mL) vial 5,000 unit(s) 1 mL, Subcutaneous, q8h levothyroxine 100 mcg tablet 100 mcg 1 tab(s), Oral, qDay lidocaine patch REMOVAL 1 EA, Miscellaneous, q24h lidocaine topical 4% patch 1 patch(es), Transdermal, q24h miconazole topical 2% Powder 1 cristian, Topical, qHS polyethylene glycol 3350 - UD packet 17 gram(s) 15 mL, Oral, qDay spironolactone 25 mg tablet 25 mg 1 tab(s), Oral, qDayM Continuous: (0) PRN: (9) acetaminophen 325 mg Tablet 650 mg 2 tab(s), Oral, q6h albuterol - ipratropium 2.5 mg-0.5 mg/3 mL Inhal Jewell UD 3 mL, Inhalation, q2hRT benzocaine-menthol (Cepacol Sore Throat) 15 mg-3.6mg lozenge 1 lozenge(s), Oral, q2h benzonatate 100 mg Capsule 100 mg 1 cap(s), Oral, TID dextrose 50% Solution Disp syringe 50 mL 25 gram(s) 50 mL, IV Push, AsDirected lidocaine topical 2% viscous 100 mL 5 mL, Swish & Spit, achs loratadine 10 mg Tablet 10 mg 1 tab(s), Oral, qDay tramadol 50 mg Tablet 50 mg 1 tab(s), Oral, q6hr tramadol 50 mg Tablet 100 mg 2 tab(s), Oral, q6h Lab Results 05/29 04:50 WBC: 12.4 H Hgb: 10.1 L Hct: 31.9 L Platelet: 173 Neutrophil %: 68.0 Glucose Level: 88 Sodium Level: 139 Potassium Level: 5.3 H BUN: 14.0 Creatinine Lvl (s): 0.47 L Assessment/Plan 1. Chronic mixed respiratory failure 2. Prader-Willi syndrome with obesity class III 3. Severe OHS and DACIA 4. Acute exacerbation of HFpEF 5. Severe pulmonary hypertension who class is 2 and 3 Recommendations: 1. Continue nocturnal AVAPS. VT 420, EPAP 10, max pressure 30, rate 16 2. During the day continue nasal oxygen 2 L/min 3. Continue DVT prophylaxis 4. Continue heart failure management with diuresis and K supplement 5. Agree with need for further rehab. LTAC would be a good choice. Discussed with mother at the bedside Digitally Signed by FRANKLYN STAPLETON MD on 05/29/2024 04:45 PM [facility] 05-29-2024 Note Date of Service 05/29/24 Chief Complaint Sia Abdul is a 43 year old female with PMH of HFpEF, Prader-Willi, and intellectual disability who presented to [facility] ED on 05/12/24 after having increased shortness of breath then becoming unresponsive in the care with agonal or possible absent breathing. Initial rhythm was PEA and two rounds of CPR completed prior to ROSC without any medications. She was emergently intubated and noted to be difficult due to anterior airway and body habitus. She became hypoxic which resolved with multiple Duonebs. She has never been previously intubated. She was transferred to [place] [facility] for ongoing care on 05/13/2024. More recently, Patient was discharged 05/05 after treatment for volume overload secondary to heart failure exacerbation. 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 Initial lab work showed a pH of 7.527, CO2 of 53, O2 to 78, bicarb of 43 after intubation. CBC showed leukocytosis 17.2 with left shift. UA showed small leukocyte esterase, trace bacteria. CMP showed elevated bicarb 43, creatinine of 1.20, hypoalbuminemia at 3.2, elevated globulins of 5.4, mild transaminitis with an alk phos of 142, AST 73, ALT 76. Lactic acid was 2.5. Troponin 38. proBNP 8761. Mycoplasma was also noted to be positive (IgM). Respiratory panel negative. MRSA negative. Legionella/strep negative. Chest x-ray showed central venous pulmonary congestion with diffuse peribronchial thickening. Given these findings patient was placed on azithromycin Rocephin to cover for the mycoplasma pneumonia. Cardiology was consulted and patient was placed on diuretics. Patient was able to be liberated from mechanical ventilation on 05/14/2024. TTE was performed normal EF positive diastolic dysfunction and RVSP of 78 consistent with diastolic dysfunction with right heart failure/ pulmonary hypertension. Patient transferred to floor on 05/16. Unfortunately on 05/18/2024, patient became more short of breath, was placed on BiPAP and transferred to the CCU. Repeat ABG showed worsening CO2 levels. Central access was obtained and IV Bumex was started. Additionally Beckwith catheter was attempted by urology on 05/18/2024 for IN/OUT monitoring however was extremely difficult. Because patient was voiding well, urology recommended against placement. With continued diuresis, respiratory status did stabilize. At this time she seems to be tolerating BiPAP. Once her respiratory status stabilized, CTA of the chest was completed 05/20/2024 to rule out PE. As expected there findings suggestive of CHF. There are areas confluent with groundglass opacity and bronchial thickening in the lungs which could be pulmonary edema versus infection. Due to stability patient was transferred to stepdown (from CCU critical care). Patient finished azithromycin on 05/22/2024 for mycoplasma pneumonia. Bumex was reduced to 1 mg twice daily for maintenance diuretic and cardiology is currently slowly introducing GDMT. Lower extremity Dopplers were negative for DVT. Due to continued leukocytosis and the possibility of a resistant mycoplasma, patient was transitioned to doxycycline for another 7 days. She continued to have some difficulties with persistent hypercapnia so pulmonology was reconsulted for opinion. Due to her intermittent complaint of right-sided pain, Ultrasound was completed on 05/27/2024 showing no intrahepatic bile duct dilation and a common duct 3 mm making cholecystitis unlikely. Lipase level is normal. At this point, pain seems to be musculoskeletal in nature and supportive care could be continued. Pulmonology recommended transition to nocturnal AVAPS device. Vt 420 cc, EPAP 10, maximum pressure of 30, rate 16. Due to her lack of progress despite maximal therapy with AVAPS, LTAC was consulted. She was accepted. Her mother requested a bed at the [place] location which does not have any availability. Therefore patient is pending bed. Subjective Patient seen and examined. About the same as yesterday. She was eating without difficulty. Does not complain of any shortness of breath. No complaints of pain today. Seems to be tolerating AVAPS. Objective Vitals and Measurements T: 36.1 C (Oral) TMIN: 36.1 C (Oral) TMAX: 36.9 C (Oral) HR: 67 RR: 19 BP: 117/78 SpO2: 98% WT: 140.6 kg Intake and Output 7AM Yesterday to 7AM Today Intake and Output (Last 24 hours) Intake Oral Intake 1010.00 Output Urinary Catheter Output: 2600.00 Stool Count 1.00 Total Summary Total Intake 1010.00 Total Output 2600.00 Fluid Balance -1590.00 Physical Exam Constitutional -obese, alert, no gross deformities Head atraumatic, normocephalic Eyes Pupils equal, round, reactive to light, no conjunctival injection, extra ocular movements grossly intact, no scleral icterus Ears, Nose, and Throat trachea midline no lesions Respiratory generally clear, mild crackles lower lung base Cardiovascular regular rate and rhythm without murmurs. Normal S1 and S2. Mild edema lower extremities Gastrointestinal (Abdomen) Bowel sounds present. Soft, nontender Musculoskeletal no obvious deformity, swelling, or clubbing. Skin: Skin normal color, texture and turgor with no lesions or eruptions Weight Current Weight Dosing Weight: 138.6 kg (05/26/24) Current Weight: 140.6 kg (05/29/24) Dosing Weight: 140.2 kg (05/25/24) Current Weight: 134.7 kg (05/28/24) Medications Medications (21) Active Scheduled: (12) atorvastatin 20 mg tablet 20 mg 1 tab(s), Oral, Daily bumetanide 1 mg tablet 1 mg 1 tab(s), Oral, BID docusate-senna (Senokot S) 50 mg-8.6 mg Tablet 2 tab(s), Oral, BID doxycycline hyclate 100 mg Capsule 100 mg 1 cap(s), Oral, BID guaifenesin 600 mg ER 600 mg 1 tab(s), Oral, BID heparin 5,000 units/mL (1 mL) vial 5,000 unit(s) 1 mL, Subcutaneous, q8h levothyroxine 100 mcg tablet 100 mcg 1 tab(s), Oral, qDay lidocaine patch REMOVAL 1 EA, Miscellaneous, q24h lidocaine topical 4% patch 1 patch(es), Transdermal, q24h miconazole topical 2% Powder 1 cristian, Topical, qHS polyethylene glycol 3350 - UD packet 17 gram(s) 15 mL, Oral, qDay spironolactone 25 mg tablet 25 mg 1 tab(s), Oral, qDayM Continuous: (0) PRN: (9) acetaminophen 325 mg Tablet 650 mg 2 tab(s), Oral, q6h albuterol - ipratropium 2.5 mg-0.5 mg/3 mL Inhal Jewell UD 3 mL, Inhalation, q2hRT benzocaine-menthol (Cepacol Sore Throat) 15 mg-3.6mg lozenge 1 lozenge(s), Oral, q2h benzonatate 100 mg Capsule 100 mg 1 cap(s), Oral, TID dextrose 50% Solution Disp syringe 50 mL 25 gram(s) 50 mL, IV Push, AsDirected lidocaine topical 2% viscous 100 mL 5 mL, Swish & Spit, achs loratadine 10 mg Tablet 10 mg 1 tab(s), Oral, qDay tramadol 50 mg Tablet 50 mg 1 tab(s), Oral, q6hr tramadol 50 mg Tablet 100 mg 2 tab(s), Oral, q6h Lab Results 05/29 04:50 WBC: 12.4 H Hgb: 10.1 L Hct: 31.9 L Platelet: 173 Neutrophil %: 68.0 Glucose Level: 88 Sodium Level: 139 Potassium Level: 5.3 H BUN: 14.0 Creatinine Lvl (s): 0.47 L 05/28 03:04 WBC: 10.4 Hgb: 10.1 L Hct: 31.4 L Platelet: 171 Neutrophil %: 74.1 Glucose Level: 112 H Sodium Level: 144 Potassium Level: 4.6 BUN: 22.0 Creatinine Lvl (s): 0.61 Imaging Results and Diagnostics US Abdomen Complete Result Date: May 27, 2024 Verified By: KYRIE LICEA MD CLINICAL STATEMENT: IMPRESSION: Suboptimal evaluation due to patient factors. No acute abnormality is seen. XR Chest 1 View Result Date: May 25, 2024 Verified By: Alyse_johnny JUVESaud CLINICAL STATEMENT: IMPRESSION: Stable examination and stable support apparatus. CT Angiography Chest w/ Contrast Result Date: May 20, 2024 Verified By: MIKEY WINKLER MD CLINICAL STATEMENT: IMPRESSION: No evidence of pulmonary embolism. Findings suggestive of heart dysfunction. Areas of confluent ground-glassopacity and bronchial thickening in the lungs which could be related, forexample pulmonary edema. Correlate clinically and follow-up to resolution. XR Chest 1 View Result Date: May 19, 2024 Verified By: ESTHER CABALLERO MD CLINICAL STATEMENT: IMPRESSION: Right upper lobe consolidation, slightly worse compared to the prior study.This may represent worsening pneumonia, and follow-up is recommended. XR Chest 1 View Result Date: May 18, 2024 Verified By: QUAN JEONG MD CLINICAL STATEMENT: IMPRESSION: Interval right internal jugular central venous catheter placement with itstip overlying the proximal right atrium. No postprocedure pneumothorax. No significant change in bilateral mixed airspace and interstitial opacitiesand small bilateral pleural effusions. I have personally reviewed the images of this examination, and agree with theresident's findings and interpretation. XR Chest 2 Views Result Date: May 17, 2024 Verified By: LORI WESLEY DO CLINICAL STATEMENT: IMPRESSION: No significant change in widespread bilateral mixed interstitial and alveolarairspace disease which may represent pulmonary edema or pneumonia. Stablesuspected small bilateral pleural effusions. XR Chest 1 View Result Date: May 15, 2024 Verified By: QUAN JEONG MD CLINICAL STATEMENT: IMPRESSION: Extensive bilateral lung infiltrates consistent with pneumonia, pulmonaryedema, and/or ARDS. XR Chest 1 View Result Date: May 14, 2024 Verified By: KODY MARINELLI DO CLINICAL STATEMENT: IMPRESSION: Findings above most suggestive of pulmonary edema, relatively similar to theprior exam. Consider infection in the appropriate clinical setting. I have personally reviewed the images of this examination and agree with theresident's findings and interpretation. XR Ankle Minimum 3 Views Right Result Date: May 14, 2024 Verified By: QUAN JEONG MD CLINICAL STATEMENT: IMPRESSION: 1. No acute bone abnormality of the right ankle.2. Marked edema in the right lower leg. XR Chest 1 View Result Date: May 14, 2024 Verified By: QUAN JEONG MD CLINICAL STATEMENT: IMPRESSION: 1. Unchanged bilateral lung infiltrates.2. Small bilateral pleural effusions. XR Chest 1 View Result Date: May 13, 2024 Verified By: KODY MARINELLI DO CLINICAL STATEMENT: IMPRESSION: Endotracheal tube terminates 2.9 cm above the fadumo. Otherwise, stable exam. I have personally reviewed the images of this examination and agree with theresident's findings and interpretation. XR Chest 1 View Result Date: May 13, 2024 Verified By: QUAN JEONG MD CLINICAL STATEMENT: IMPRESSION: 1. Endotracheal tube and enteric tube are in satisfactory position.2. Stable bilateral lung infiltrates. XR Enteric Tube Placement Result Date: May 13, 2024 Verified By: QUAN JEONG MD CLINICAL STATEMENT: IMPRESSION: 1. Endotracheal tube tip is at the level of the fadumo and should beretracted 4 cm.2. Orogastric tube is in satisfactory position.3. Worsening bilateral lung infiltrates. XR Chest 1 View Result Date: May 13, 2024 Verified By: QUAN JEONG MD CLINICAL STATEMENT: IMPRESSION: 1. Endotracheal tube tip is at the level of the fadumo and should beretracted 4 cm.2. Orogastric tube is in satisfactory position.3. Worsening bilateral lung infiltrates. EKG No qualifying data available. Assessment/Plan Acute hypoxic/hypercapnic respiratory failure Acute diastolic heart failure with right-sided component, RVP 78 mmHg with hepatic vein reversal. 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 Currently on Bumex 1 mg twice daily for maintenance. Continue Aldactone. Further GDMT per cardiology as an outpatient. -Pulmonology following. Oxygen back to baseline at 3 L. Recommending AVAPS. Vt 420 cc, EPAP 10, maximum pressure of 30, rate 16. Planning on LTAC for extended wean. Continues to struggle with persistent hypercapnia/acidosis. -With regards to her pneumonia, patient was on azithromycin from 05/16/2024-05/22/2024 for mycoplasma. Also status post 4 days Rocephin on admission. Due to the severity of her hospitalization and evidence of macrolide resistance developing elsewhere, I would prefer to continue doxycycline another 7 days to complete an extended 14-day course for mycoplasma. (through 05/29/2024). -With regards to Prader-Willi syndrome, no pharmacologic agent has been shown to help control appetite or binge eating. GLP-1's have been used occasionally but are not well studied. Patient should be followed closely as an outpatient for growth hormone deficiencies, hypogonadism, diabetes (A1c 5.3 this visit), normal TSH this visit, as they are at higher risk for pituitary dysfunction. Additionally she is at high risk for sleep disorders (already planning on sleep study via pulmonology as outpatient). Patient should establish with a Prader-Willi specific treatment center if possible at a large supply. For now okay to start GLP-1 if mother brings this medication in from outside. Otherwise 1000-calorie diet as prescribed by her supervisor telephone clerks. Level of Care Indication SD monitor (other: specify in note) DVT Prophylaxis Heparin SQ Maintenance IVF Indication NA / No maintenance IVF Indwelling Urinary Catheter Indication NA No indwelling catheter Timeline of Discharge LTAC pending availability. Anticipated DC Disposition detention acute care / [facility] Digitally Signed by MISTY HADDAD DO on 05/29/2024 01:42 PM [facility] 05-28-2024 Pulmonary Progres s note Date of Service 05/28/2024 Subjective Clinically appears to be doing well. Denies any shortness of breath or wheezing or chest pain. Oxygen 3 L/min by nasal cannula saturating 97 to 98%. Using AVAPS at night. The patient is a 43-year-old black female with history of Prader-Willi syndrome resident at the senior living who was admitted with mixed respiratory failure needing intubation on 05/13/2024. She was diagnosed with acute exacerbation of HFpEF and was diuresed and eventually liberated for mechanical ventilation on 05/14/2024 and transferred to the floor. She has remained hypercapnic requiring AVAPS device. Objective Vitals and Measurements T: 36.3 C (Oral) TMIN: 36.3 C (Oral) TMAX: 37 C (Axillary) HR: 74 RR: 20 BP: 112/69 SpO2: 100% WT: 134.7 kg Physical Exam Lungs are clear anteriorly and laterally. Heart is regular. Morbidly obese. Weight Current Weight Dosing Weight: 138.6 kg (05/26/24) Current Weight: 134.7 kg (05/28/24) Dosing Weight: 140.2 kg (05/25/24) Current Weight: 141 kg (05/27/24) Medications Medications (21) Active Scheduled: (12) atorvastatin 20 mg tablet 20 mg 1 tab(s), Oral, Daily bumetanide 1 mg tablet 1 mg 1 tab(s), Oral, BID docusate-senna (Senokot S) 50 mg-8.6 mg Tablet 2 tab(s), Oral, BID doxycycline hyclate 100 mg Capsule 100 mg 1 cap(s), Oral, BID guaifenesin 600 mg ER 600 mg 1 tab(s), Oral, BID heparin 5,000 units/mL (1 mL) vial 5,000 unit(s) 1 mL, Subcutaneous, q8h levothyroxine 100 mcg tablet 100 mcg 1 tab(s), Oral, qDay lidocaine patch REMOVAL 1 EA, Miscellaneous, q24h lidocaine topical 4% patch 1 patch(es), Transdermal, q24h miconazole topical 2% Powder 1 cristian, Topical, qHS polyethylene glycol 3350 - UD packet 17 gram(s) 15 mL, Oral, qDay spironolactone 25 mg tablet 25 mg 1 tab(s), Oral, qDayM Continuous: (0) PRN: (9) acetaminophen 325 mg Tablet 650 mg 2 tab(s), Oral, q6h albuterol - ipratropium 2.5 mg-0.5 mg/3 mL Inhal Jewell UD 3 mL, Inhalation, q2hRT benzocaine-menthol (Cepacol Sore Throat) 15 mg-3.6mg lozenge 1 lozenge(s), Oral, q2h benzonatate 100 mg Capsule 100 mg 1 cap(s), Oral, TID dextrose 50% Solution Disp syringe 50 mL 25 gram(s) 50 mL, IV Push, AsDirected lidocaine topical 2% viscous 100 mL 5 mL, Swish & Spit, achs loratadine 10 mg Tablet 10 mg 1 tab(s), Oral, qDay tramadol 50 mg Tablet 50 mg 1 tab(s), Oral, q6hr tramadol 50 mg Tablet 100 mg 2 tab(s), Oral, q6h Lab Results 05/28 03:04 WBC: 10.4 Hgb: 10.1 L Hct: 31.4 L Platelet: 171 Neutrophil %: 74.1 Glucose Level: 112 H Sodium Level: 144 Potassium Level: 4.6 BUN: 22.0 Creatinine Lvl (s): 0.61 Assessment/Plan 1. Chronic mixed respiratory failure 2. Worsening hypercapnia due to contraction alkalosis 3. Morbid obesity with the Prader-Willi syndrome 4. Severe OHS and DACIA 5. Acute exacerbation of HFpEF. Remains on diuretics 6. Severe pulmonary hypertension, WHO classes 2 and 3 Recommendations: 1. Continue nocturnal AVAPS device. Vt 420 cc, EPAP 10, maximum pressure of 30, rate 16 2. Continue nasal oxygen 2 L/min 3. Continue DVT prophylaxis 4. Avoid hypokalemia which could exacerbate contraction alkalosis 5. Encourage getting out of bed Will continue to follow Discussed with Dr. Haddad Digitally Signed by FRANKLYN STAPLETON MD on 05/28/2024 05:29 PM [facility] 05-28-2024 Note Date of Service 05/28/2024 Subjective Patient was seen and examined at bedside. No acute overnight events. Discussed with the patient that she will require LTAC placement to improve her breathing to which he demonstrated understanding and is just worried regarding placement options. Objective Vitals and Measurements T: 36.5 C (Oral) TMIN: 36.5 C (Oral) TMAX: 37 C (Axillary) HR: 63 RR: 20 BP: 111/66 SpO2: 98% WT: 134.7 kg Intake and Output 7AM Yesterday to 7AM Today Intake and Output (Last 24 hours) Intake Oral Intake 1760.00 Output Urinary Catheter Output: 2600.00 Stool Count 1.00 Total Summary Total Intake 1760.00 Total Output 2600.00 Fluid Balance -840.00 Physical Exam General Appearance: Alert and oriented in no acute distress Head: Normocephalic, atraumatic EENT: Moist oral mucosa Neck: Supple, no JVD Cardiac: Regular rate and rhythm, no murmur Respiratory: Clear to auscultation bilaterally, without crackles or rales Abdomen: Soft, nontender to deep palpation, normoactive bowel sounds, Musculoskeletal: No joint deformity, no muscle tenderness Extremities: Trace pedal edema on lower extremities, Neurological: Alert and oriented Skin: Warm and dry, no rash Psychiatric: Normal mood and affect Weight Current Weight Dosing Weight: 138.6 kg (05/26/24) Current Weight: 134.7 kg (05/28/24) Dosing Weight: 140.2 kg (05/25/24) Current Weight: 141 kg (05/27/24) Medications Medications (21) Active Scheduled: (12) atorvastatin 20 mg tablet 20 mg 1 tab(s), Oral, Daily bumetanide 1 mg tablet 1 mg 1 tab(s), Oral, BID docusate-senna (Senokot S) 50 mg-8.6 mg Tablet 2 tab(s), Oral, BID doxycycline hyclate 100 mg Capsule 100 mg 1 cap(s), Oral, BID guaifenesin 600 mg ER 600 mg 1 tab(s), Oral, BID heparin 5,000 units/mL (1 mL) vial 5,000 unit(s) 1 mL, Subcutaneous, q8h levothyroxine 100 mcg tablet 100 mcg 1 tab(s), Oral, qDay lidocaine patch REMOVAL 1 EA, Miscellaneous, q24h lidocaine topical 4% patch 1 patch(es), Transdermal, q24h miconazole topical 2% Powder 1 cristian, Topical, qHS polyethylene glycol 3350 - UD packet 17 gram(s) 15 mL, Oral, qDay spironolactone 25 mg tablet 25 mg 1 tab(s), Oral, qDayM Continuous: (0) PRN: (9) acetaminophen 325 mg Tablet 650 mg 2 tab(s), Oral, q6h albuterol - ipratropium 2.5 mg-0.5 mg/3 mL Inhal Jewell UD 3 mL, Inhalation, q2hRT benzocaine-menthol (Cepacol Sore Throat) 15 mg-3.6mg lozenge 1 lozenge(s), Oral, q2h benzonatate 100 mg Capsule 100 mg 1 cap(s), Oral, TID dextrose 50% Solution Disp syringe 50 mL 25 gram(s) 50 mL, IV Push, AsDirected lidocaine topical 2% viscous 100 mL 5 mL, Swish & Spit, achs loratadine 10 mg Tablet 10 mg 1 tab(s), Oral, qDay tramadol 50 mg Tablet 50 mg 1 tab(s), Oral, q6hr tramadol 50 mg Tablet 100 mg 2 tab(s), Oral, q6h Lab Results 05/28 03:04 WBC: 10.4 Hgb: 10.1 L Hct: 31.4 L Platelet: 171 Neutrophil %: 74.1 Glucose Level: 112 H Sodium Level: 144 Potassium Level: 4.6 BUN: 22.0 Creatinine Lvl (s): 0.61 05/27 05:08 WBC: 9.9 Hgb: 9.5 L Hct: 28.2 L Platelet: 166 Neutrophil %: 68.4 Glucose Level: 82 Sodium Level: 141 Potassium Level: 4.4 BUN: 20.0 Creatinine Lvl (s): 0.53 EKG No qualifying data available. Assessment/Plan Acute hypoxic/hypercapnic respiratory failure Acute diastolic heart failure with right-sided component, RVP 78 mmHg with hepatic vein reversal. 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 Continue Aldactone. Further GDMT per cardiology as an outpatient. Patient is 96% on 3 L. Baseline is 3 L however patient can be weaned off down to 92% As per pneumonia patient was on azithromycin from 05/16/2024 to for mycoplasma. Due to severity of hospitalization and evidence of macrolide resistance developing elsewhere doxycycline was started on 05/23 for additional 7 days to complete a course of antibiotics for 14 days. Repeat VBG shows pH 7.27 with pCO2 95% despite being on AVAPS therefore given his ongoing hypercapnia we will recommend LTAC admission so patient can be weaned off AVAPS over the next 1-2 weeks to BiPAP and close follow-up with pulmonology. DVT prophylaxis heparin subcu Full code -Please see addendum - Misty Haddad DO Digitally Signed by KARSON MASSEY MD on 05/28/2024 11:23 AM Digitally Signed by MISTY HADDAD DO on 05/28/2024 06:40 PM [facility] 05-27-2024 Pulmonary Progres s note Date of Service 05/27/2024 Subjective Patient clinically appears to be at baseline. Has no significant worsening of her respiratory status. She feels her breathing is adequate. ABG continues to show hypercapnia although it is relatively well compensated Objective Vitals and Measurements T: 36.6 C (Axillary) TMIN: 36.6 C (Axillary) TMAX: 37.1 C (Axillary) HR: 66 RR: 22 BP: 99/63 SpO2: 96% WT: 141.0 kg Physical Exam General Appearance: Alert and not in any apparent distress Cardiac: Regular rate and rhythm, no murmur Respiratory: Decreased air entry bilaterally but no crackles or wheezing Abdomen: Soft, nontender to deep palpation, normoactive bowel sounds, Musculoskeletal: No joint deformity, no muscle tenderness Extremities: Trace pedal edema on lower extremities, Weight Current Weight Dosing Weight: 138.6 kg (05/26/24) Current Weight: 141 kg (05/27/24) Dosing Weight: 140.2 kg (05/25/24) Current Weight: 137.5 kg (05/24/24) Medications Medications (21) Active Scheduled: (12) atorvastatin 20 mg tablet 20 mg 1 tab(s), Oral, Daily bumetanide 1 mg tablet 1 mg 1 tab(s), Oral, BID docusate-senna (Senokot S) 50 mg-8.6 mg Tablet 2 tab(s), Oral, BID doxycycline hyclate 100 mg Capsule 100 mg 1 cap(s), Oral, BID guaifenesin 600 mg ER 600 mg 1 tab(s), Oral, BID heparin 5,000 units/mL (1 mL) vial 5,000 unit(s) 1 mL, Subcutaneous, q8h levothyroxine 100 mcg tablet 100 mcg 1 tab(s), Oral, qDay lidocaine patch REMOVAL 1 EA, Miscellaneous, q24h lidocaine topical 4% patch 1 patch(es), Transdermal, q24h miconazole topical 2% Powder 1 cristian, Topical, qHS polyethylene glycol 3350 - UD packet 17 gram(s) 15 mL, Oral, qDay spironolactone 25 mg tablet 25 mg 1 tab(s), Oral, qDayM Continuous: (0) PRN: (9) acetaminophen 325 mg Tablet 650 mg 2 tab(s), Oral, q6h albuterol - ipratropium 2.5 mg-0.5 mg/3 mL Inhal Jewell UD 3 mL, Inhalation, q2hRT benzocaine-menthol (Cepacol Sore Throat) 15 mg-3.6mg lozenge 1 lozenge(s), Oral, q2h benzonatate 100 mg Capsule 100 mg 1 cap(s), Oral, TID dextrose 50% Solution Disp syringe 50 mL 25 gram(s) 50 mL, IV Push, AsDirected lidocaine topical 2% viscous 100 mL 5 mL, Swish & Spit, achs loratadine 10 mg Tablet 10 mg 1 tab(s), Oral, qDay tramadol 50 mg Tablet 50 mg 1 tab(s), Oral, q6hr tramadol 50 mg Tablet 100 mg 2 tab(s), Oral, q6h Lab Results 05/27 05:08 WBC: 9.9 Hgb: 9.5 L Hct: 28.2 L Platelet: 166 Neutrophil %: 68.4 Glucose Level: 82 Sodium Level: 141 Potassium Level: 4.4 BUN: 20.0 Creatinine Lvl (s): 0.53 05/26 10:09 WBC: 12.0 H Hgb: 10.2 L Hct: 32.0 L Platelet: 190 Neutrophil %: 76.9 H Glucose Level: 129 H Sodium Level: 141 Potassium Level: 4.8 BUN: 18.0 Creatinine Lvl (s): 0.47 L Imaging Results and Diagnostics US Abdomen Complete Result Date: May 27, 2024 Verified By: KYRIE LICEA MD CLINICAL STATEMENT: IMPRESSION: Suboptimal evaluation due to patient factors. No acute abnormality is seen. XR Chest 1 View Result Date: May 25, 2024 Verified By: Contributor_johnny JUVESaud CLINICAL STATEMENT: IMPRESSION: Stable examination and stable support apparatus. CT Angiography Chest w/ Contrast Result Date: May 20, 2024 Verified By: MIKEY WINKLER MD CLINICAL STATEMENT: IMPRESSION: No evidence of pulmonary embolism. Findings suggestive of heart dysfunction. Areas of confluent ground-glassopacity and bronchial thickening in the lungs which could be related, forexample pulmonary edema. Correlate clinically and follow-up to resolution. XR Chest 1 View Result Date: May 19, 2024 Verified By: ESTHER CABALLERO MD CLINICAL STATEMENT: IMPRESSION: Right upper lobe consolidation, slightly worse compared to the prior study.This may represent worsening pneumonia, and follow-up is recommended. XR Chest 1 View Result Date: May 18, 2024 Verified By: QUAN JEONG MD CLINICAL STATEMENT: IMPRESSION: Interval right internal jugular central venous catheter placement with itstip overlying the proximal right atrium. No postprocedure pneumothorax. No significant change in bilateral mixed airspace and interstitial opacitiesand small bilateral pleural effusions. I have personally reviewed the images of this examination, and agree with theresident's findings and interpretation. XR Chest 2 Views Result Date: May 17, 2024 Verified By: LORI WESLEY DO CLINICAL STATEMENT: IMPRESSION: No significant change in widespread bilateral mixed interstitial and alveolarairspace disease which may represent pulmonary edema or pneumonia. Stablesuspected small bilateral pleural effusions. XR Chest 1 View Result Date: May 15, 2024 Verified By: QUAN JEONG MD CLINICAL STATEMENT: IMPRESSION: Extensive bilateral lung infiltrates consistent with pneumonia, pulmonaryedema, and/or ARDS. XR Chest 1 View Result Date: May 14, 2024 Verified By: KODY MARINELLI DO CLINICAL STATEMENT: IMPRESSION: Findings above most suggestive of pulmonary edema, relatively similar to theprior exam. Consider infection in the appropriate clinical setting. I have personally reviewed the images of this examination and agree with theresident's findings and interpretation. XR Ankle Minimum 3 Views Right Result Date: May 14, 2024 Verified By: QUAN JEONG MD CLINICAL STATEMENT: IMPRESSION: 1. No acute bone abnormality of the right ankle.2. Marked edema in the right lower leg. XR Chest 1 View Result Date: May 14, 2024 Verified By: QUAN JEONG MD CLINICAL STATEMENT: IMPRESSION: 1. Unchanged bilateral lung infiltrates.2. Small bilateral pleural effusions. XR Chest 1 View Result Date: May 13, 2024 Verified By: KODY MARINELLI DO CLINICAL STATEMENT: IMPRESSION: Endotracheal tube terminates 2.9 cm above the fadumo. Otherwise, stable exam. I have personally reviewed the images of this examination and agree with theresident's findings and interpretation. XR Chest 1 View Result Date: May 13, 2024 Verified By: QUAN JEONG MD CLINICAL STATEMENT: IMPRESSION: 1. Endotracheal tube and enteric tube are in satisfactory position.2. Stable bilateral lung infiltrates. XR Enteric Tube Placement Result Date: May 13, 2024 Verified By: QUAN JEONG MD CLINICAL STATEMENT: IMPRESSION: 1. Endotracheal tube tip is at the level of the fadumo and should beretracted 4 cm.2. Orogastric tube is in satisfactory position.3. Worsening bilateral lung infiltrates. XR Chest 1 View Result Date: May 13, 2024 Verified By: QUAN JEONG MD CLINICAL STATEMENT: IMPRESSION: 1. Endotracheal tube tip is at the level of the fadumo and should beretracted 4 cm.2. Orogastric tube is in satisfactory position.3. Worsening bilateral lung infiltrates. EKG No qualifying data available. Assessment/Plan 1. Acute on chronic mixed respiratory failure 2. Worsening hypercapnia due to inconsistent use of BPAP as well as diuresis and contraction alkalosis 3. Severe OHS and DACIA 4. Morbid obesity with Prader-Willi syndrome 5. Severe pulmonary hypertension due to the above 6. Acute exacerbation of HFpEF on diuretics. 7. Does not have mycoplasma pneumonia. Only positive IgM Recommendations: 1. Continue on AVAPS device with tidal volume of 400 cc, FiO2 30%, EPAP 10-15, pressure support 5-25 2. Use the device all time. Use nasal oxygen for meals 2 LPM. Avoid hyperoxia 3. The patient is hypercapnia is mostly chronic in nature. It is relatively well compensated. She clinically appears to be close to her baseline. Given an underlying respiratory disorder in the setting of Prader-Willi disease would be difficult to achieve normocapnia 4. Given the clinical improvement it is not unreasonable to continue her current AVAPS setting and follow clinically Discussed with Dr. Haddad Digitally Signed by PATITO JEFFRIES MD on 05/27/2024 02:44 PM [facility] 05-27-2024 Note Exam Date Time Procedure Performing Provider Status 05/27/24 9:08 AM US Abdomen Complete KYRIE LICEA MD; Auth (Verified) [id number] ORIGINAL EXAMINATION: COMPLETE ABDOMINAL ULTRASOUND05/27/2024 9:08 am ULTRASOUND ABDOMEN COMPLETE, TECHNIQUE: This report is based on interpretation of permanently recorded ultrasound images. COMPARISON: None HISTORY: ORDERING SYSTEM PROVIDED HISTORY: Reason for Exam: abdominal pain, FINDINGS: The study is compromised and suboptimal due to patient's large body habitus and limited mobility. The liver is normal in echogenicity. No focal lesion is seen. The main portal vein and its branches are patent with normal antegrade blood flow.. There is no intrahepatic bile duct dilatation. The common duct 3 mm at the kevyn hepatis. The gallbladder is sonographically normal without calculus, wall thickening or tenderness. The pancreas is only partially visualized without significant abnormality. Some portions are obscured by bowel gas artifacts.. The spleen is not enlarged. No ascites. Limited survey images of the kidneys show normal cortical thickness and echogenicity. No pelvocaliectasis. . The aorta and IVC are mostly obscured.. IMPRESSION: Suboptimal evaluation due to patient factors. No acute abnormality is seen. Interpreted by: Kyrie Licea MD Preliminary Report By: Kyrie Licea MD Electronically signed By Kyrie Licea MD Dictated Date: 05/27/2024 9:24:25 AM Prelim Date: 05/27/2024 9:26:24 AM Sign Date: 05/27/2024 9:26:24 AM Ordering Provider: [facility]03-19-2025 Note Date of Service 05/26/2024 Chief Complaint Asked to see patient again due to worsening hypercapnia Subjective This patient is a 43-year-old white female with history of Prader-Willi syndrome, resident at [facility]. She was initially admitted with mixed hypercapnic and hypoxic respiratory failure needing intubation. She was diagnosed with exacerbation of heart failure and was treated with diuretics. She was recently hospitalized at [facility] with heart failure and according to her mom she has beenhospitalized 6 or 7 times over the last year to 2 years. She was liberated from mechanical ventilation on 05/14/2024 and transferred to the floor. On the floor, there has been inconsistent use of BPAP/AVAPS device. In addition, she spent time in the CCU for diagnosis of acute exacerbation of HFpEF and was given diuretics. Gradually, her bicarb and her pCO2 increased. She has a history of Prader-Willi syndrome and heart disease. She is she has intellectual disability. Per mother the patient does have obstructive sleep apnea and uses CPAP regularly she is able to do her ADLs. The patient has normal ejection fraction but severe pulmonary hypertension with RVSP estimated at 79 mmHg Objective Vitals and Measurements T: 36.7 C (Oral) TMIN: 36.3 C (Oral) TMAX: 37.2 C (Axillary) HR: 74 RR: 18 BP: 102/54 SpO2: 98% WT:138.6 kg Physical Exam Patient is awake and alert. She is in no acute distress. On nasal cannula. Lungs are clear bilaterally anteriorly and heart is regular. Morbidly obese. Mild leg swelling. Weight Current Weight Dosing Weight: 138.6 kg (05/26/24) Current Weight: 137.5 kg (05/24/24) Dosing Weight: 140.2 kg (05/25/24) Current Weight: 130.1 kg (05/19/24) Medications Medications (21) Active Scheduled: (12) atorvastatin 20 mg tablet 20 mg 1 tab(s), Oral, Daily bumetanide 1 mg tablet 1 mg 1 tab(s), Oral, BID docusate-senna (Senokot S) 50 mg-8.6 mg Tablet 2 tab(s), Oral, BID doxycycline hyclate 100 mg Capsule 100 mg 1 cap(s), Oral, BID guaifenesin 600 mg ER 600 mg 1 tab(s), Oral, BID heparin 5,000 units/mL (1 mL) vial 5,000 unit(s) 1 mL, Subcutaneous, q8h levothyroxine 100 mcg tablet 100 mcg 1 tab(s), Oral, qDay lidocaine patch REMOVAL 1 EA, Miscellaneous, q24h lidocaine topical 4% patch 1 patch(es), Transdermal, q24h miconazole topical 2% Powder 1 cristian, Topical, qHS polyethylene glycol 3350 - UD packet 17 gram(s) 15 mL, Oral, qDay spironolactone 25 mg tablet 25 mg 1 tab(s), Oral, qDayM Continuous: (0) PRN: (9) acetaminophen 325 mg Tablet 650 mg 2 tab(s), Oral, q6h albuterol - ipratropium 2.5 mg-0.5 mg/3 mL Inhal Jewell UD 3 mL, Inhalation, q2hRT benzocaine-menthol (Cepacol Sore Throat) 15 mg-3.6mg lozenge 1 lozenge(s), Oral, q2h benzonatate 100 mg Capsule 100 mg 1 cap(s), Oral, TID dextrose 50% Solution Disp syringe 50 mL 25 gram(s) 50 mL, IV Push, AsDirected lidocaine topical 2% viscous 100 mL 5 mL, Swish & Spit, achs loratadine 10 mg Tablet 10 mg 1 tab(s), Oral, qDay tramadol 50 mg Tablet 50 mg 1 tab(s), Oral, q6hr tramadol 50 mg Tablet 100 mg 2 tab(s), Oral, q6h Lab Results 05/26 10:09 WBC: 12.0 H Hgb: 10.2 L Hct: 32.0 L Platelet: 190 Neutrophil %: 76.9 H Glucose Level: 129 H Sodium Level: 141 Potassium Level: 4.8 BUN: 18.0 Creatinine Lvl (s): 0.47 L Venous blood gases today 7.30, 89, 135, 99% Imaging Results and Diagnostics Chest x-ray shows prominent pulmonary arteries bilaterally and mild bilateral infiltrates Assessment/Plan 1. Acute on chronic mixed respiratory failure 2. Worsening hypercapnia due to inconsistent use of BPAP as well as diuresis and contraction alkalosis 3. Severe OHS and DACIA 4. Morbid obesity with Prader-Willi syndrome 5. Severe pulmonary hypertension due to the above 6. Acute exacerbation of HFpEF on diuretics. 7. Does not have mycoplasma pneumonia. Only positive IgM Recommendations: 1. Start on AVAPS device with tidal volume of 400 cc, FiO2 30%, EPAP 10-15, pressure support 5-25 2. Use the device all time. Use nasal oxygen for meals 2 LPM. Avoid hyperoxia 3. Discontinue isolation 4. Continue diuresis. Avoid hypokalemia < 4.2 5. Continue DVT prophylaxis 6. Recommend transfer back to stepdown Will continue to follow Time Spent 30 minutes of critical care time Digitally Signed by FRANKLYN STAPLETON MD on 05/26/2024 06:47 PM [id number] NoteHNO ID: [id number] Author: AAKASH MANUEL RN Service: ? Author Type: Registered Nurse Type: Progress Notes Filed: 05/26/2024 15:50 Note Text: CDM ENROLLMENT Provider Action / FYI: Mom, validated caregiver for patient advised patient currently in hospital. Patient identified by name and date of . Discussed care with mother. Program Details Chronic Disease Management Status: Deferred Start Date: 05/11/2024 Responsible Staff: Aakash Manuel RN Support and Services: Assessments No documentation this encounter Interventions No checklist tasks for this episode were completed during this visit, and no tasks for this episode are pending completion. Aakash Manuel RN May 26, 2024 3:37 [facility]03-19-2025 History of Present illness Narrative* Aakash Manuel RN - 05/26/2024 3:33 PM EDT CD ENROLLMENT Provider Action / FYI: Mom, validated caregiver for patient advised patient currently in hospital. Patient identified by name and date of . Discussed care with mother. Program Details Chronic Disease Management Status: Deferred Start Date: 05/11/2024 Responsible Staff: Aakash Manuel RN Support and Services: Assessments No documentation this encounter Interventions No checklist tasks for this episode were completed during this visit, and no tasks for this episodeare pending completion. Aakash Manuel RN May 26, 2024 3:37 [facility] NotePatient Outreach ([facility]) SIA ABDUL ([id number]) 1980 F Date Time Provider Department 05/26/24 AAKASH MANUEL During your visit today, we recorded the following information about you: Aakash Manuel RN 05/26/2024 3:50 PM Signed CD ENROLLMENT Provider Action / FYI: Mom, validated caregiver for patient advised patient currently in hospital. Patient identified by name and date of . Discussed care with mother. Program Details Chronic Disease Management Status: Deferred Start Date: 05/11/2024 Responsible Staff: Aakash Manuel RN Support and Services: Assessments No documentation this encounter Interventions No checklist tasks for this episode were completed during this visit, and no tasks for this episode are pending completion. Aakash Manuel RN May 26, 2024 3:37 PM Allergies As of Date: 05/26/2024 Noted Allergy Reaction BEE STING 02/28/2023 10 - Anaphylaxis BUMEX (BUMETANIDE) 03/12/2024 6 - Diarrhea 14 - Other: See Comments Comments: chula PARMAR (PHENYTOIN SODIUM EXTEND*01/28/2006 Date Reviewed: 05/10/2024 Reviewed by: María Avila MA - Fully Assessed Prescriptions as of 05/26/2024 - xzjkbwa-oklqdkndg-xbnapdy D3 (OYSTER SHELL CALCIUM-VITAMIN D) 500 mg-5 mcg (200 unit) per tablet Take 1 tablet by mouth two times a day with meals. - sertraline (ZOLOFT) 25 mg tablet Take 1 tablet by mouth once daily. - torsemide (DEMADEX) 20 mg tablet Take an extra 20 a day mgs In addition to current dose of 40 mgs 2 times on days you have more than 5 pounds of water weight gain - fluticasone-vilanterol (BREO ELLIPTA) 100-25 mcg/dose inhaler Inhale 1 Inhalation as instructed once daily. - IRAIDA 0.35 mg tablet Take 1 tablet by mouth once daily. - EPINEPHrine (EPIPEN) 0.3 mg/0.3 mL auto-injector INJECT 1 PEN INTO LATERAL THIGH DIRECTED FOR ALLERGIC REACTIONS TO BEE/WASP STINGS MAY REPEAT IN 5-15 MINUTES IF SYMPTOMS PERSIST * *STAFF REORDER, 4 DAYS IN ADVANCE* - torsemide (DEMADEX) 20 mg tablet Take 2 tablets by mouth two times a day. - MEDICAL SUPPLY Lymphedema compression pump to both legs 1 hour daily. 60 mm Hg. New machine. - mometasone-formoterol (DULERA) 100-5 mcg/actuation inhaler Inhale 2 Puffs as instructed two times a day. - fluticasone (FLONASE) 50 mcg/actuation nasal spray INSTILL 2 SPRAYS IN EACH NOSTRIL DAILY - diphenoxylate-atropine (LOMOTIL) 2.5-0.025 mg per tablet Take 1 tablet by mouth four times a day as needed. - ondansetron (ZOFRAN) 4 mg tablet Take by mouth every 8 hours as needed for nausea/vomiting. - aspirin 81 mg chewable tablet Take 81 mg by mouth once daily. - carvedilol (COREG) 3.125 mg tablet Take 1 tablet by mouth two times a day. - ammonium lactate (LAC-HYDRIN) 12 % cream APPLY TOPICALLY TO AFFECTED AREA(S) ON LEGS AT BEDTIME - multivitamin-ferrous fumarate-folic acid (CERTAVITE-ANTIOXIDANT) Take 1 tablet by mouth once daily. - Xrgwr-5-IAS-EPA-Fish Oil 1,000 mg (120 mg-180 mg) cap Take 1 capsule by mouth once daily. - levothyroxine (SYNTHROID) 100 mcg tablet take one tablet by mouth daily one hour before breakfast - nystatin (NYAMYC) powder APPLY TOPICALLY TWICE DAILY TO AFFECTED AREA(S) ON ABDOMINAL FOLDS - clotrimazole (LOTRIMIN) 1 % cream APPLY TOPICALLY TO AFFECTED AREA(S) ON BILATERAL GROIN TWICE DAILY - albuterol HFA (VENTOLIN HFA) 90 mcg/actuation inhaler Inhale 2 Puffs as instructed every 4 hours as needed for wheezing/shortness of breath. - acetaminophen (TYLENOL EXTRA STRENGTH) 500 mg tablet Take 2 tablets by mouth every 8 hours as needed for pain (For knee pain). - Gauze Bandage 2 X 2 bndg Apply 1 application to affected area twice daily. - cetirizine (ZYRTEC) 10 mg tablet Take [...] 4pm Dx:Q87.1 Problem List As Of Date 05/26/2024 Noted Resolved Other malaise and fatigue [R53.81, [...] thigh), and ank*12/04/2009 12/13/2013 Amenorrhea [N91.2] 06/18/2011 (more content not included)...[facility]03-18-2025 Note* Exam Date Time Procedure Performing Provider Status 05/25/24 1:38 PM XR Chest 1 View Contributor_system, FU JI; Auth (Verified) [id number] ORIGINAL EXAMINATION: ONE XRAY VIEW OF THE CHEST05/25/2024 1:38 pm CHEST ONE VIEW AP/PA EXAM DESCRIPTION: COMPARISON: Chest, May 20, 2019 HISTORY: ORDERING SYSTEM PROVIDED HISTORY: Reason for Exam: Chest pain, rule out rib fractures FINDINGS: Single AP radiograph of the chest was obtained. Redemonstration patchy bilateral airspace opacities. Improved aeration of the right upper lobe compared to prior. Stable position of right central venous line. The cardiomediastinal silhouette is enlarged. The bones and soft tissues are unremarkable. Evaluation of the ribs are limited due to patient positioning and soft tissue artifact. IMPRESSION: Stable examination and stable support apparatus. Interpreted by: Praveen oJhnson MD Preliminary Report By: Praveen Johnson MD Electronically signed By Praveen Johnson MD Dictated Date: 05/25/2024 9:41:46 PM Prelim Date: 05/25/2024 9:45:43 PM Sign Date: 05/25/2024 9:45:43 PM Ordering Provider: [facility]03-17-2025 Cardiology Consult note Date of Service 05/24/2024 Reason for Consultation Chest pain Referring Physician JHONATHAN KRISHNAMURTHY MD History of Present Illness This is a 43-year-old female who presented with acute on chronic hypoxic and hypercapnic respiratory failure requiring brief endotracheal intubation then transitioned to BiPAP. She was treated for acute exacerbation of HFpEF with IV diuresis and dobutamine then she was transitioned to oral Bumex. She was found to have mycoplasma pneumonia that was treated with azithromycin. Cardiology is consulted today for new complaint of chest pain. Today, patient pointed to her right side of chest and stated the she feels some discomfort when sheeats as if the food is stuck in her chest. She denied any pain without eating. Review of Systems Unable to evaluate given patient's limited interaction. Physical Exam Vitals and Measurements T: 36.7 C (Oral) TMIN: 36.5 C (Oral) TMAX: 37.0 C (Oral) HR: 69 (Monitored) RR: 18 BP: 106/66 SpO2:96% WT: 137.5 kg Weight Current Weight Dosing Weight: 136.1 kg (05/13/24) Current Weight: 137.5 kg (05/24/24) Current Weight: 130.1 kg (05/19/24) GENERAL: Pt is comfortable in bed. Appears in no acute distress. Morbidly obese HEENT: Mucous membranes pink and moist Respiratory system: Chest clear Cardiology: S1-S2, no murmurs, rubs or gallops Extremities: Chronic venous stasis changes both lower extremities. Bilateral pitting edema Lab Results 05/24 04:47 WBC: 12.3 H Hgb: 10.0 L Hct: 30.8 L Platelet: 177 Neutrophil %: 73.1 Glucose Level: 106 Sodium Level: 141 Potassium Level: 4.6 BUN: 22.0 Creatinine Lvl (s): 0.49 L 05/23 04:37 WBC: 11.0 H Hgb: 9.5 L Hct: 29.6 L Platelet: 177 Neutrophil %: 73.2 Glucose Level: 110 Sodium Level: 141 Potassium Level: 4.6 BUN: 23.0 H Creatinine Lvl (s): 0.51 Imaging Results [address] CT Angiography Chest w/ Contrast Result Date: May 20, 2024 Verified By: MIKEY WINKLER MD CLINICAL STATEMENT: IMPRESSION: No evidence of pulmonary embolism. Findings suggestive of heart dysfunction. Areas of confluent ground-glassopacity and bronchial thickening in the lungs which could be related, forexample pulmonary edema. Correlate clinically and follow-up to resolution. XR Chest 1 View Result Date: May 19, 2024 Verified By: ESTHER CABALLERO MD CLINICAL STATEMENT: IMPRESSION: Right upper lobe consolidation, slightly worse compared to the prior study.This may represent worsening pneumonia, and follow-up is recommended. XR Chest 1 View Result Date: May 18, 2024 Verified By: QUAN JEONG MD CLINICAL STATEMENT: IMPRESSION: Interval right internal jugular central venous catheter placement with itstip overlyingthe proximal right atrium. No postprocedure pneumothorax. No significant change in bilateral mixed airspace and interstitial opacitiesand small bilateral pleural effusions. I have personally reviewedthe images of this examination, and agree with theresident's findings and interpretation. XR Chest 2 Views Result Date: May 17, 2024 Verified By: LORI WESLEY DO CLINICAL STATEMENT: IMPRESSION: No significant change in widespread bilateral mixed interstitial and alveolarairspace disease which may represent pulmonary edema or pneumonia. Stablesuspected small bilateral pleural effusions. XR Chest 1 View Result Date: May 15, 2024 Verified By: QUAN JEONG MD CLINICAL STATEMENT: IMPRESSION: Extensive bilateral lung infiltrates consistent with pneumonia, pulmonaryedema, and/or ARDS. XR Chest 1 View Result Date: May 14, 2024 Verified By: KODY MARINELLI DO CLINICAL STATEMENT: IMPRESSION: Findings above most suggestive of pulmonary edema, relatively similar to theprior exam.Consider infection in the appropriate clinical setting. I have personally reviewed the images of this examination and agree with theresident's findings and interpretation. XR Ankle Minimum 3 Views Right Result Date: May 14, 2024 Verified By: QUAN JEONG MD CLINICAL STATEMENT: IMPRESSION: 1. No acute bone abnormality of the right ankle.2. Marked edema in the right lower leg. XR Chest 1 View Result Date: May 14, 2024 Verified By: QUAN JEONG MD CLINICAL STATEMENT: IMPRESSION: 1. Unchanged bilateral lung infiltrates.2. Small bilateral pleural effusions. XR Chest 1 View Result Date: May 13, 2024 Verified By: KODY MARINELLI DO CLINICAL STATEMENT: IMPRESSION: Endotracheal tube terminates 2.9 cm above the fadumo. Otherwise, stable exam. I have personally reviewed the images of this examination and agree with theresident's findings and interpretation. XR Chest 1 View Result Date: May 13, 2024 Verified By: QUAN JEONG MD CLINICAL STATEMENT: IMPRESSION: 1. Endotracheal tube and enteric tube are in satisfactory position.2. Stable bilateral lung infiltrates. XR Enteric Tube Placement Result Date: May 13, 2024 Verified By: QUAN JEONG MD CLINICAL STATEMENT: IMPRESSION: 1. Endotracheal tube tip is at the level of the fadumo and should beretracted 4 cm.2. Orogastric tube is in satisfactory position.3. Worsening bilateral lung infiltrates. XR Chest 1 View Result Date: May 13, 2024 Verified By: QUAN JEONG MD CLINICAL STATEMENT: IMPRESSION: 1. Endotracheal tube tip is at the level of the fadumo and should beretracted 4 cm.2. Orogastric tube is in satisfactory position.3. Worsening bilateral lung infiltrates. Assessment/Plan Atypical chest pain Acute exacerbation of diastolic heart failure, improving Severe pulmonary hypertension, likely class III in the setting of OHS Mycoplasma pneumonia, completed azithromycin course Prader-Willi syndrome This is a 43-year-old female who was admitted with acute on chronic hypoxic and hypercapnic respiratory failure. She was also treated for acute exacerbation of HFpEF with IV diuresis and dobutamine then she was transitioned to oral Bumex. Plan Patient endorsed postprandial right-sided chest pain describing it has a feeling as if the food is stuck in her chest. She denied any chest pain at rest. Her troponin level was negative and her EKG showed findings of severe pulmonary hypertension in the form of RV strain. This is most likely an atypical noncardiac chest pain in nature. Patient is also on aspirin for no clear indication for us so we will discontinue it. Will sign off Please do not hesitate to reach out to us if you have any questions. Problem List/Past Medical History Historical CHF (congestive heart failure) Prader-Willi syndrome Procedure/Surgical History No qualifying data available. Medications Inpatient acetaminophen, 650 mg= 2 tab(s), Oral, q6h, PRN Aldactone, 25 mg= 1 tab(s), Oral, qDayM aspirin 81 mg oral delayed release tablet, 81 mg= 1 tab(s), Oral, Daily atorvastatin, 20 mg= 1 tab(s), Oral, Daily Bumex, 1 mg= 1 tab(s), Oral, BID Cepacol Sore Throat lozenge, 1 lozenge(s), Oral, q2h, PRN Claritin, 10 mg= 1 tab(s), Oral, qDay, PRN Dextrose 50% IV Push, 25 gram(s)= 50 mL, IV Push, AsDirected, PRN doxycycline, 100 mg= 1 cap(s), Oral, BID DuoNeb, 3 mL, Inhalation, q2hRT, PRN guaiFENesin 600 mg oral tablet, extended release, 600 mg= 1 tab(s), Oral, BID heparin 5000 units/mL injection, 5000 unit(s)= 1 mL, Subcutaneous, q8h levothyroxine, 100 mcg= 1 tab(s), Oral, qDay Lidocaine (Xylocaine) Viscous 2% mucous membrane soln, 5 mL, Swish & Spit, achs, PRN magnesium sulfate for IV bolus, 2 gram(s)= 50 mL, IV Piggyback, AsDirected, PRN magnesium sulfate for IV bolus, 4 gram(s)= 100 mL, IV Piggyback, AsDirected, PRN magnesium sulfate for IV bolus miconazole 2% topical powder, 1 cristian, Topical, qHS Miralax Powder Packet, 17 gram(s)= 15 mL, Oral, qDay potassium chloride, 20 mEq= 1 tab(s), Oral, AsDirected, PRN potassium chloride, 40 mEq= 2 tab(s), Oral, AsDirected, PRN potassium chloride, 40 mEq= 2 tab(s), Oral, AsDirected, PRN potassium chloride bolus, 20 mEq= 100 mL, IV Piggyback, AsDirected, PRN Protonix IV Push, 40 mg, IV Push, qDayAC Senokot S, 2 tab(s), Oral, BID Tessalon Perles, 100 mg= 1 cap(s), Oral, TID, PRN Home ammonium lactate 12% topical cream, 1 cristian, Topical, qHS aspirin 81 mg oral delayed release tablet, 81 mg= 1 tab(s), Oral, Daily Breo Ellipta 100 mcg-25 mcg/inh inhalation powder, 1 puff(s), Inhalation, Daily calcium carbonate 500 mg (200 mg elemental calcium) oral tablet, chewable, 500 mg= 1 tab(s), Chewed, BID carvedilol 3.125 mg oral tablet, 3.125 mg= 1 tab(s), Oral, BIDM clotrimazole 1% topical cream, 1 cristian, Topical, BID Dulera 100 mcg-5 mcg/inh Metered Dose Inhaler, 2 puff(s), Inhalation, BID EPINEPHrine 0.3 mg injectable kit, 0.3 mg= 1 EA, Intramuscular, AsDirected, PRN fluticasone proprionate NASAL 50 mcg/ spray, 50 mcg= 1 spray(s), Nostril, each, qAM levothyroxine 100 mcg (0.1 mg) oral tablet, 100 mcg= 1 tab(s), Oral, qDay norethindrone 0.35 mg oral tablet, 0.35 mg= 1 tab(s), Oral, qDay nystatin 100,000 units/g topical powder, 1 cristian, Topical, qHS omega-3 polyunsaturated fatty acids ethyl esters 1000 mg oral capsule, 2000 mg= 2 cap(s), Oral, qDay Therapeutic Multiple Vitamins with Minerals, Zinc and Elderberry oral tablet, chewable, 1 tab, Chewed, qDay torsemide 20 mg oral tablet, 20 mg= 1 tab(s), Oral, BID Allergies Bee Stings Dilantin misc non-codified allergy Immunizations No qualifying data available. Digitally Signed by LIEN HARRISON MD on 05/24/2024 02:21 PM [id number] Cardiology Consult note Date of Service 05/24/2024 Reason for Consultation Chest pain Referring Physician JHONATHAN KRISHNAMURTHY MD History of Present Illness This is a 43-year-old female who presented with acute on chronic hypoxic and hypercapnic respiratory failure requiring brief endotracheal intubation then transitioned to BiPAP. She was treated for acute exacerbation of HFpEF with IV diuresis and dobutamine then she was transitioned to oral Bumex. She was found to have mycoplasma pneumonia that was treated with azithromycin. Cardiology is consulted today for new complaint of chest pain. Today, patient pointed to her right side of chest and stated the she feels some discomfort when sheeats as if the food is stuck in her chest. She denied any pain without eating. Review of Systems Unable to evaluate given patient's limited interaction. Physical Exam Vitals and Measurements T: 36.7 C (Oral) TMIN: 36.5 C (Oral) TMAX: 37.0 C (Oral) HR: 69 (Monitored) RR: 18 BP: 106/66 SpO2: 96% WT: 137.5 kg Weight Current Weight Dosing Weight: 136.1 kg (05/13/24) Current Weight: 137.5 kg (05/24/24) Current Weight: 130.1 kg (05/19/24) GENERAL: Pt is comfortable in bed. Appears in no acute distress. Morbidly obese HEENT: Mucous membranes pink and moist Respiratory system: Chest clear Cardiology: S1-S2, no murmurs, rubs or gallops Extremities: Chronic venous stasis changes both lower extremities. Bilateral pitting edema Lab Results 05/24 04:47 WBC: 12.3 H Hgb: 10.0 L Hct: 30.8 L Platelet: 177 Neutrophil %: 73.1 Glucose Level: 106 Sodium Level: 141 Potassium Level: 4.6 BUN: 22.0 Creatinine Lvl (s): 0.49 L 05/23 04:37 WBC: 11.0 H Hgb: 9.5 L Hct: 29.6 L Platelet: 177 Neutrophil %: 73.2 Glucose Level: 110 Sodium Level: 141 Potassium Level: 4.6 BUN: 23.0 H Creatinine Lvl (s): 0.51 Imaging Results and Diagnostics CT Angiography Chest w/ Contrast Result Date: May 20, 2024 Verified By: MIKEY WINKLER MD CLINICAL STATEMENT: IMPRESSION: No evidence of pulmonary embolism. Findings suggestive of heart dysfunction. Areas of confluent ground-glassopacity and bronchial thickening in the lungs which could be related, forexample pulmonary edema. Correlate clinically and follow-up to resolution. XR Chest 1 View Result Date: May 19, 2024 Verified By: ESTHER CABALLERO MD CLINICAL STATEMENT: IMPRESSION: Right upper lobe consolidation, slightly worse compared to the prior study.This may represent worsening pneumonia, and follow-up is recommended. XR Chest 1 View Result Date: May 18, 2024 Verified By: ADENIKE FERNANDES, QUAN Campbell CLINICAL STATEMENT: IMPRESSION: Interval right internal jugular central venous catheter placement with itstip overlyingthe proximal right atrium. No postprocedure pneumothorax. No significant change in bilateral mixed airspace and interstitial opacitiesand small bilateral pleural effusions. I have personally reviewedthe images of this examination, and agree with theresident's findings and interpretation. XR Chest 2 Views Result Date: May 17, 2024 Verified By: LORI WESLEY DO CLINICAL STATEMENT: IMPRESSION: No significant change in widespread bilateral mixed interstitial and alveolarairspace disease which may represent pulmonary edema or pneumonia. Stablesuspected small bilateral pleural effusions. XR Chest 1 View Result Date: May 15, 2024 Verified By: QUAN JEONG MD CLINICAL STATEMENT: IMPRESSION: Extensive bilateral lung infiltrates consistent with pneumonia, pulmonaryedema, and/or ARDS. XR Chest 1 View Result Date: May 14, 2024 Verified By: KODY MARINELLI DO CLINICAL STATEMENT: IMPRESSION: Findings above most suggestive of pulmonary edema, relatively similar to theprior exam.Consider infection in the appropriate clinical setting. I have personally reviewed the images of this examination and agree with theresident's findings and interpretation. XR Ankle Minimum 3 Views Right Result Date: May 14, 2024 Verified By: QUAN JEONG MD CLINICAL STATEMENT: IMPRESSION: 1. No acute bone abnormality of the right ankle.2. Marked edema in the right lower leg. XR Chest 1 View Result Date: May 14, 2024 Verified By: QUAN JEONG MD CLINICAL STATEMENT: IMPRESSION: 1. Unchanged bilateral lung infiltrates.2. Small bilateral pleural effusions. XR Chest 1 View Result Date: May 13, 2024 Verified By: KODY MARINELLI DO CLINICAL STATEMENT: IMPRESSION: Endotracheal tube terminates 2.9 cm above the fadumo. Otherwise, stable exam. I have personally reviewed the images of this examination and agree with theresident's findings and interpretation. XR Chest 1 View Result Date: May 13, 2024 Verified By: QUAN JEONG MD CLINICAL STATEMENT: IMPRESSION: 1. Endotracheal tube and enteric tube are in satisfactory position.2. Stable bilateral lung infiltrates. XR Enteric Tube Placement Result Date: May 13, 2024 Verified By: QUAN JEONG MD CLINICAL STATEMENT: IMPRESSION: 1. Endotracheal tube tip is at the level of the fadumo and should beretracted 4 cm.2. Orogastric tube is in satisfactory position.3. Worsening bilateral lung infiltrates. XR Chest 1 View Result Date: May 13, 2024 Verified By: QUAN JEONG MD CLINICAL STATEMENT: IMPRESSION: 1. Endotracheal tube tip is at the level of the fadumo and should beretracted 4 cm.2. Orogastric tube is in satisfactory position.3. Worsening bilateral lung infiltrates. Assessment/Plan Atypical chest pain Acute exacerbation of diastolic heart failure, improving Severe pulmonary hypertension, likely class III in the setting of OHS Mycoplasma pneumonia, completed azithromycin course Prader-Willi syndrome This is a 43-year-old female who was admitted with acute on chronic hypoxic and hypercapnic respiratory failure. She was also treated for acute exacerbation of HFpEF with IV diuresis and dobutamine then she was transitioned to oral Bumex. Plan Patient endorsed postprandial right-sided chest pain describing it has a feeling as if the food is stuck in her chest. She denied any chest pain at rest. Her troponin level was negative and her EKG showed findings of severe pulmonary hypertension in the form of RV strain. This is most likely an atypical noncardiac chest pain in nature. Patient is also on aspirin for no clear indication for us so we will discontinue it. Will sign off Please do not hesitate to reach out to us if you have any questions. Problem List/Past Medical History Historical CHF (congestive heart failure) Prader-Willi syndrome Procedure/Surgical History No qualifying data available. Medications Inpatient acetaminophen, 650 mg= 2 tab(s), Oral, q6h, PRN Aldactone, 25 mg= 1 tab(s), Oral, qDayM aspirin 81 mg oral delayed release tablet, 81 mg= 1 tab(s), Oral, Daily atorvastatin, 20 mg= 1 tab(s), Oral, Daily Bumex, 1 mg= 1 tab(s), Oral, BID Cepacol Sore Throat lozenge, 1 lozenge(s), Oral, q2h, PRN Claritin, 10 mg= 1 tab(s), Oral, qDay, PRN Dextrose 50% IV Push, 25 gram(s)= 50 mL, IV Push, AsDirected, PRN doxycycline, 100 mg= 1 cap(s), Oral, BID DuoNeb, 3 mL, Inhalation, q2hRT, PRN guaiFENesin 600 mg oral tablet, extended release, 600 mg= 1 tab(s), Oral, BID heparin 5000 units/mL injection, 5000 unit(s)= 1 mL, Subcutaneous, q8h levothyroxine, 100 mcg= 1 tab(s), Oral, qDay Lidocaine (Xylocaine) Viscous 2% mucous membrane soln, 5 mL, Swish & Spit, achs, PRN magnesium sulfate for IV bolus, 2 gram(s)= 50 mL, IV Piggyback, AsDirected, PRN magnesium sulfate for IV bolus, 4 gram(s)= 100 mL, IV Piggyback, AsDirected, PRN magnesium sulfate for IV bolus miconazole 2% topical powder, 1 cristian, Topical, qHS Miralax Powder Packet, 17 gram(s)= 15 mL, Oral, qDay potassium chloride, 20 mEq= 1 tab(s), Oral, AsDirected, PRN potassium chloride, 40 mEq= 2 tab(s), Oral, AsDirected, PRN potassium chloride, 40 mEq= 2 tab(s), Oral, AsDirected, PRN potassium chloride bolus, 20 mEq= 100 mL, IV Piggyback, AsDirected, PRN Protonix IV Push, 40 mg, IV Push, qDayAC Senokot S, 2 tab(s), Oral, BID Tessalon Perles, 100 mg= 1 cap(s), Oral, TID, PRN Home ammonium lactate 12% topical cream, 1 cristian, Topical, qHS aspirin 81 mg oral delayed release tablet, 81 mg= 1 tab(s), Oral, Daily Breo Ellipta 100 mcg-25 mcg/inh inhalation powder, 1 puff(s), Inhalation, Daily calcium carbonate 500 mg (200 mg elemental calcium) oral tablet, chewable, 500 mg= 1 tab(s), Chewed, BID carvedilol 3.125 mg oral tablet, 3.125 mg= 1 tab(s), Oral, BIDM clotrimazole 1% topical cream, 1 cristian, Topical, BID Dulera 100 mcg-5 mcg/inh Metered Dose Inhaler, 2 puff(s), Inhalation, BID EPINEPHrine 0.3 mg injectable kit, 0.3 mg= 1 EA, Intramuscular, AsDirected, PRN fluticasone proprionate NASAL 50 mcg/ spray, 50 mcg= 1 spray(s), Nostril, each, qAM levothyroxine 100 mcg (0.1 mg) oral tablet, 100 mcg= 1 tab(s), Oral, qDay norethindrone 0.35 mg oral tablet, 0.35 mg= 1 tab(s), Oral, qDay nystatin 100,000 units/g topical powder, 1 cristian, Topical, qHS omega-3 polyunsaturated fatty acids ethyl esters 1000 mg oral capsule, 2000 mg= 2 cap(s), Oral, qDay Therapeutic Multiple Vitamins with Minerals, Zinc and Elderberry oral tablet, chewable, 1 tab, Chewed, qDay torsemide 20 mg oral tablet, 20 mg= 1 tab(s), Oral, BID Allergies Bee Stings Dilantin misc non-codified allergy Immunizations No qualifying data available. Digitally Signed by LIEN HARRISON MD on 05/24/2024 02:21 PM [id number] Note* Exam Date Time Procedure Performing Provider Status 05/24/24 10:16 AM Electrocardiogram - EKG - CV PRANAV EATON MD; Auth (Verified) ECG Final Report SINUS RHYTHM ABNORMAL T, CONSIDER ISCHEMIA, ANTEROLATERAL LEADS Electronic Signature: PRANAV DAVE MD 05/26/2024 08:44:31 [facility] [id number] Cardiology Progress note Subjective No new complaint volume status is stable good urine output Objective Vitals and Measurements T: 36.8 C (Oral) TMIN: 36.5 C (Oral) TMAX: 37.2 C (Oral) HR: 70 (Monitored) RR: 18 BP: 118/72 SpO2:96% Intake and Output 7AM Yesterday to 7AM Today Intake and Output (Last 24 hours) Intake Oral Intake 390.00 Output Urine Voided 1300.00 Urinary Catheter Output: 0.00 Stool Count 0.00 Total Summary Total Intake 390.00 Total Output 1300.00 Fluid Balance -910.00 Physical Exam Looks comfortable follows command S1-S2 regular rhythm No significant lower extremity edema other than chronic skin changes Weight Current Weight Dosing Weight: 136.1 kg (05/13/24) Current Weight: 130.1 kg (05/19/24) Medications Medications (25) Active Scheduled: (12) aspirin 81 mg EC 81 mg 1 tab(s), Oral, Daily atorvastatin 20 mg tablet 20 mg 1 tab(s), Oral, Daily bumetanide 1 mg tablet 1 mg 1 tab(s), Oral, BID docusate-senna (Senokot S) 50 mg-8.6 mg Tablet 2 tab(s), Oral, BID doxycycline hyclate 100 mg Capsule 100 mg 1 cap(s), Oral, BID guaifenesin 600 mg ER 600 mg 1 tab(s), Oral, BID heparin 5,000 units/mL (1 mL) vial 5,000 unit(s) 1 mL, Subcutaneous, q8h levothyroxine 100 mcg tablet 100 mcg 1 tab(s), Oral, qDay miconazole topical 2% Powder 1 cristian, Topical, qHS pantoprazole 40 mg VIAL 40 mg, IV Push, qDayAC polyethylene glycol 3350 - UD packet 17 gram(s) 15 mL, Oral, qDay spironolactone 25 mg tablet 25 mg 1 tab(s), Oral, qDayM Continuous: (0) PRN: (13) albuterol - ipratropium 2.5 mg-0.5 mg/3 mL Inhal Jewell UD 3 mL, Inhalation, q2hRT benzocaine-menthol (Cepacol Sore Throat) 15 mg-3.6mg lozenge 1 lozenge(s), Oral, q2h benzonatate 100 mg Capsule 100 mg 1 cap(s), Oral, TID dextrose 50% Solution Disp syringe 50 mL 25 gram(s) 50 mL, IV Push, AsDirected lidocaine topical 2% viscous 100 mL 5 mL, Swish & Spit, achs loratadine 10 mg Tablet 10 mg 1 tab(s), Oral, qDay magnesium sulfate 4 gram(s)/100mL PMX 4 g 100 mL, IV Piggyback, AsDirected magnesium sulfate 50% (500mg/mL) 6 g 12 mL, IV Piggyback, AsDirected magnesium sulfate PMX 2 g 50 mL, IV Piggyback, AsDirected potassium chloride (PMX) 20 mEq/100 mL 20 mEq 100 mL, IV Piggyback, AsDirected potassium chloride 20 mEq ER tablet 20 mEq 1 tab(s), Oral, AsDirected potassium chloride 20 mEq ER tablet 40 mEq 2 tab(s), Oral, AsDirected potassium chloride 20 mEq ER tablet 40 mEq 2 tab(s), Oral, AsDirected Lab Results 05/23 04:37 WBC: 11.0 H Hgb: 9.5 L Hct: 29.6 L Platelet: 177 Neutrophil %: 73.2 Glucose Level: 110 Sodium Level: 141 Potassium Level: 4.6 BUN: 23.0 H Creatinine Lvl (s): 0.51 05/22 02:52 WBC: 12.2 H Hgb: 9.7 L Hct: 30.9 L Platelet: 190 Neutrophil %: 74.3 Glucose Level: 112 H Sodium Level: 142 Potassium Level: 4.4 BUN: 18.0 Creatinine Lvl (s): 0.46 L EKG No qualifying data available. Assessment/Plan Orders: spironolactone(Aldactone), 25 mg= 1 tab(s), Oral, qDayM 1. Acute exacerbation of diastolic heart failure 2. Severe pulmonary hypertension likely group 3 in the setting of obesity hypoventilation/obstructive sleep apnea 3. Prader-Willi syndrome 4. Mycoplasma pneumonia Acute exacerbation of diastolic heart failure, resolved Will initiate Bumex 1 mg oral twice daily as her maintenance diuretic. Will slowly introduce GDMT as blood pressure tolerates. Add spironolactone today renal function is stable Severe pulmonary hypertension likely WHO group 3 secondary to OHS Pulmonary following for optimization of BiPAP settings prior to transferring back to senior living. Initially senior living was not willing to accept the patient back Given concern that she may require AVAPS therapy. CTA chest was negative for PE. Doppler ultrasound was ordered 05/19/2024 report of her recent has done not been done. Mycoplasma pneumonia Management as per primary team At some point she will need right heart catheterization which can be done as an outpatient please call if any further question arise. Digitally Signed by RADHA ROSARIO MD on 05/23/2024 02:19 PM [facility] [id number] Cardiology Progress note Date of Service 05/21/2024 Subjective This is a 43-year-old female with a past medical history significant for Prader- Willi and c DACIA on CPAP who initially had presented to the hospital due to altered mental status. Went into PEA arrest for which 2 rounds of CPR were performed with restored ROSC. Patient was intubated for airway protection and extubated on 05/15/2024. And treated for mycoplasma pneumonia with Rocephin and azithromycin within MICU. Cardiology was consulted given EKG showed anterior wall T wave inversions and patient was severely fluid overloaded. NT proBNP was greater than 8000. Patient was started on diuresis and transferred to CCU given concern that the patient may require dobutamine assisted diuresis. TTE on 05/14 showed EF of 60 to 65% with diastolic dysfunction and RVSP of 78 mmHg suggestive of severe pulmonary hypertension. CTA of the chest was negative for pulmonary embolism but did show findings suggestive of congestive heart failure and pulmonary edema for which the patient underwent aggressive diuresis. No new complaints Intake and Output 7AM Yesterday to 7AM Today Intake and Output (Last 24 hours) Intake Oral Intake 480.00 Output Urinary Catheter Output: 1300.00 Total Summary Total Intake 480.00 Total Output 1300.00 Fluid Balance -820.00 Physical Exam Alert and oriented x 3 no acute distress Neck exam: No obvious masses, no significant JVD Chest: diminished, poor inspiratory effort Heart: S1-S2 regular no significant murmurs rubs or gallops. Abdomen: Soft nontender nondistended bowel sounds positive Extremities: + significant edema noted Neurological: Grossly intact Weight Current Weight Dosing Weight: 136.1 kg (05/13/24) Current Weight: 130.1 kg (05/19/24) Medications Medications (23) Active Scheduled: (10) aspirin 81 mg EC 81 mg 1 tab(s), Oral, Daily atorvastatin 20 mg tablet 20 mg 1 tab(s), Oral, Daily azithromycin IV 500 mg 5 mL, IV Piggyback, qDay docusate-senna (Senokot S) 50 mg-8.6 mg Tablet 2 tab(s), Oral, BID guaifenesin 600 mg ER 600 mg 1 tab(s), Oral, BID heparin 5,000 units/mL (1 mL) vial 5,000 unit(s) 1 mL, Subcutaneous, q8h levothyroxine 100 mcg tablet 100 mcg 1 tab(s), Oral, qDay miconazole topical 2% Powder 1 cristian, Topical, qHS pantoprazole 40 mg VIAL 40 mg, IV Push, qDayAC polyethylene glycol 3350 - UD packet 17 gram(s) 15 mL, Oral, qDay Continuous: (0) PRN: (13) albuterol - ipratropium 2.5 mg-0.5 mg/3 mL Inhal Jewell UD 3 mL, Inhalation, q2hRT benzocaine-menthol (Cepacol Sore Throat) 15 mg-3.6mg lozenge 1 lozenge(s), Oral, q2h benzonatate 100 mg Capsule 100 mg 1 cap(s), Oral, TID dextrose 50% Solution Disp syringe 50 mL 25 gram(s) 50 mL, IV Push, AsDirected lidocaine topical 2% viscous 100 mL 5 mL, Swish & Spit, achs loratadine 10 mg Tablet 10 mg 1 tab(s), Oral, qDay magnesium sulfate 4 gram(s)/100mL PMX 4 g 100 mL, IV Piggyback, AsDirected magnesium sulfate 50% (500mg/mL) 6 g 12 mL, IV Piggyback, AsDirected magnesium sulfate PMX 2 g 50 mL, IV Piggyback, AsDirected potassium chloride (PMX) 20 mEq/100 mL 20 mEq 100 mL, IV Piggyback, AsDirected potassium chloride 20 mEq ER tablet 20 mEq 1 tab(s), Oral, AsDirected potassium chloride 20 mEq ER tablet 40 mEq 2 tab(s), Oral, AsDirected potassium chloride 20 mEq ER tablet 40 mEq 2 tab(s), Oral, AsDirected Lab Results 05/21 12:42 WBC: 13.3 H Hgb: 10.6 L Hct: 32.8 L Platelet: 205 Neutrophil %: 75.7 H Glucose Level: 91 Sodium Level: 141 Potassium Level: 4.2 BUN: 17.0 Creatinine Lvl (s): 0.40 L 05/21 03:23 WBC: 12.6 H Hgb: 10.4 L Hct: 32.4 L Platelet: 202 Neutrophil %: 74.4 Glucose Level: 110 Sodium Level: 145 Potassium Level: 4.0 BUN: 22.0 Creatinine Lvl (s): 0.55 05/20 12:25 Glucose Level: 101 Sodium Level: 142 Potassium Level: 4.2 BUN: 23.0 H Creatinine Lvl (s): 0.58 05/20 04:32 WBC: 10.1 Hgb: 9.8 L Hct: 29.8 L Platelet: 192 Neutrophil %: 70.9 Glucose Level: 131 H Sodium Level: 147 H Potassium Level: 3.9 BUN: 24.0 H Creatinine Lvl (s): 0.64 EKG No qualifying data available. Assessment/Plan 1. Acute exacerbation of diastolic heart failure 2. Severe pulmonary hypertension likely group 3 in the setting of obesity hypoventilation/obstructive sleep apnea 3. Prader-Willi syndrome 4. Mycoplasma pneumonia Acute exacerbation of diastolic heart failure IVC is collapsing likely contributing to patient's hypotension. Will discontinue diuretic therapy at this time. Diuretic holiday for today and will optimize with an SGLT2 inhibitor, MRA plus or minusmaintenance diuretics tomorrow if renal function and blood pressure allow Severe pulmonary hypertension likely WHO group 3 secondary to OHS Will consult pulmonology for optimization of BiPAP settings prior to transferring back to senior living. Initially senior living was not willing to accept the patient back Given concern that she may require AVAPS therapy. CTA chest was negative for PE. Doppler ultrasound was ordered 05/19/2024 report of her recent has done not been done. Discussed with nursing staff. Results pending Autoimmune serology pending. Aggressive weight loss is necessary Mycoplasma pneumonia Last day of azithromycin tomorrow Potentially can be discharged this weekend if SBP is stable. 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 Went into PEA arrest for which 2 rounds of CPR were performed with restored ROSC. Patient was intubated for airway protection and extubated on 05/15/2024. And treated for mycoplasma pneumonia with Rocephin and azithromycin within MICU. Cardiology was consulted given EKG showed anterior wall T wave inversions and patient was severely fluid overloaded. NT proBNP was greater than 8000. Patient was started on diuresis and transferred to CCU given concern that the patient may require dobutamine assisted diuresis. TTE on 05/14 showed EF of 60 to 65% with diastolic dysfunction and RVSP of 78 mmHg suggestive of severe pulmonary hypertension. CTA of the chest was negative for pulmonary embolism but did show findings suggestive of congestive heart failure and pulmonary edema for which the patient underwent aggressive diuresis [1] Subjective No acute complaints Objective Vitals and Measurements T: 37.2 C (Axillary) TMIN: 36.6 C (Oral) TMAX: 37.2 C (Axillary) HR: 74 (Monitored) RR: 23 BP: 127/50 SpO2: 96% Intake and Output 7AM Yesterday to 7AM Today Intake and Output (Last 24 hours) Intake Oral Intake 480.00 Output Urine Voided 200.00 Urinary Catheter Output: 700.00 Stool Count 1.00 Diaper Count 1.00 Total Summary Total Intake 480.00 Total Output 900.00 Fluid Balance -420.00 Physical Exam General Appearance: NAD EENT: MOIST MEMBRANES Neck: NO APPRECIABLE JVD Cardiac: RRR Lungs: CTAB Abdomen: NON TENDER TO PALPATION Extremities: Edema noted, markedly improved from prior exams Neurological: AOX3 Psychiatric: NORMAL AFFECT Weight Current Weight Dosing Weight: 136.1 kg (05/13/24) Current Weight: 130.1 kg (05/19/24) Medications Medications (23) Active Scheduled: (10) aspirin 81 mg EC 81 mg 1 tab(s), Oral, Daily atorvastatin 20 mg tablet 20 mg 1 tab(s), Oral, Daily bumetanide 1 mg tablet 1 mg 1 tab(s), Oral, BID docusate-senna (Senokot S) 50 mg-8.6 mg Tablet 2 tab(s), Oral, BID guaifenesin 600 mg ER 600 mg 1 tab(s), Oral, BID heparin 5,000 units/mL (1 mL) vial 5,000 unit(s) 1 mL, Subcutaneous, q8h levothyroxine 100 mcg tablet 100 mcg 1 tab(s), Oral, qDay miconazole topical 2% Powder 1 cristian, Topical, qHS pantoprazole 40 mg VIAL 40 mg, IV Push, qDayAC polyethylene glycol 3350 - UD packet 17 gram(s) 15 mL, Oral, qDay Continuous: (0) PRN: (13) albuterol - ipratropium 2.5 mg-0.5 mg/3 mL Inhal Jewell UD 3 mL, Inhalation, q2hRT benzocaine-menthol (Cepacol Sore Throat) 15 mg-3.6mg lozenge 1 lozenge(s), Oral, q2h benzonatate 100 mg Capsule 100 mg 1 cap(s), Oral, TID dextrose 50% Solution Disp syringe 50 mL 25 gram(s) 50 mL, IV Push, AsDirected lidocaine topical 2% viscous 100 mL 5 mL, Swish & Spit, achs loratadine 10 mg Tablet 10 mg 1 tab(s), Oral, qDay magnesium sulfate 4 gram(s)/100mL PMX 4 g 100 mL, IV Piggyback, AsDirected magnesium sulfate 50% (500mg/mL) 6 g 12 mL, IV Piggyback, AsDirected magnesium sulfate PMX 2 g 50 mL, IV Piggyback, AsDirected potassium chloride (PMX) 20 mEq/100 mL 20 mEq 100 mL, IV Piggyback, AsDirected potassium chloride 20 mEq ER tablet 20 mEq 1 tab(s), Oral, AsDirected potassium chloride 20 mEq ER tablet 40 mEq 2 tab(s), Oral, AsDirected potassium chloride 20 mEq ER tablet 40 mEq 2 tab(s), Oral, AsDirected Lab Results CMP 05/22/24 02:52 05/21/24 12:42 05/21/24 03:23 Glucose Level 112 mg/dL H 91 mg/dL 110 mg/dL Sodium Level 142 mEq/L 141 mEq/L 145 mEq/L Potassium Level 4.4 mEq/L 4.2 mEq/L 4.0 mEq/L Chloride 98 mEq/L 94 mEq/L L 95 mEq/L L CO2 >40 mEq/L C >40 mEq/L C >40 mEq/L C BUN 18.0 mg/dL 17.0 mg/dL 22.0 mg/dL Creatinine Lvl (s) 0.46 mg/dL L 0.40 mg/dL L 0.55 mg/dL BUN/Creatinine Ratio 39.1 ratio H 42.5 ratio H 40.0 ratio H Calcium Lvl 9.1 mg/dL 9.2 mg/dL 9.2 mg/dL Total Protein 6.6 G/dL Albumin Level 2.7 G/dL L Globulin 3.9 G/dL H A/G Ratio 0.7 ratio L Bili Total 0.30 mg/dL Alk Phos 84 U/L AST/SGOT 21 U/L ALT/SGPT 25 U/L Estimated Glomerular Filtration Rate >120 ml/min/1.73sqm >120 ml/min/1.73sqm 118 ml/min/1.73sqm CBC 05/22/24 02:52 05/21/24 12:42 05/21/24 03:23 Hct 30.9 % L 32.8 % L 32.4 % L Hgb 9.7 G/dL L 10.6 G/dL L 10.4 G/dL L MCH 31.7 pg 32.4 pg 32.2 pg MCHC 31.4 G/dL L 32.4 G/dL 32.0 G/dL MCV 100.9 fL H 100.0 fL H 100.7 fL H MPV 9.2 fL 8.7 fL 8.7 fL Platelet 190 10^3/mcL 205 10^3/mcL 202 10^3/mcL RBC 3.07 10^6/mcL L 3.28 10^6/mcL L 3.22 10^6/mcL L RDW 14.6 % 14.8 % 14.9 % WBC 12.2 10^3/mcL H 13.3 10^3/mcL H 12.6 10^3/mcL H Cardiac Enzymes Cardiac Enzymes High Sensitivity Troponin I: 38 ng/L High (05/13/24 03:57:00) N-Terminal proBNP: 1334 pg/mL High (05/18/24 05:37:00) Lipids Lipids Cholesterol: 171 mg/dL (05/17/24 06:29:00) HDL Cholesterol: 49 mg/dL (05/17/24 06:29:00) LDL Cholesterol: 103 mg/dL (05/17/24 06:29:00) Triglycerides: 93 mg/dL (05/17/24 06:29:00) Imaging Results and Diagnostics CT Angiography Chest w/ Contrast Result Date: May 20, 2024 Verified By: MIKEY WINKLER MD CLINICAL STATEMENT: IMPRESSION: No evidence of pulmonary embolism. Findings suggestive of heart dysfunction. Areas of confluent ground-glassopacity and bronchial thickening in the lungs which could be related, forexample pulmonary edema. Correlate clinically and follow-up to resolution. XR Chest 1 View Result Date: May 19, 2024 Verified By: ESTHER CABALLERO MD CLINICAL STATEMENT: IMPRESSION: Right upper lobe consolidation, slightly worse compared to the prior study.This may represent worsening pneumonia, and follow-up is recommended. XR Chest 1 View Result Date: May 18, 2024 Verified By: QUAN JEONG MD CLINICAL STATEMENT: IMPRESSION: Interval right internal jugular central venous catheter placement with itstip overlyingthe proximal right atrium. No postprocedure pneumothorax. No significant change in bilateral mixed airspace and interstitial opacitiesand small bilateral pleural effusions. I have personally reviewedthe images of this examination, and agree with theresident's findings and interpretation. XR Chest 2 Views Result Date: May 17, 2024 Verified By: LORI WESLEY DO CLINICAL STATEMENT: IMPRESSION: No significant change in widespread bilateral mixed interstitial and alveolarairspace disease which may represent pulmonary edema or pneumonia. Stablesuspected small bilateral pleural effusions. XR Chest 1 View Result Date: May 15, 2024 Verified By: QUAN JEONG MD CLINICAL STATEMENT: IMPRESSION: Extensive bilateral lung infiltrates consistent with pneumonia, pulmonaryedema, and/or ARDS. XR Chest 1 View Result Date: May 14, 2024 Verified By: KODY MARINELLI DO CLINICAL STATEMENT: IMPRESSION: Findings above most suggestive of pulmonary edema, relatively similar to theprior exam.Consider infection in the appropriate clinical setting. I have personally reviewed the images of this examination and agree with theresident's findings and interpretation. XR Ankle Minimum 3 Views Right Result Date: May 14, 2024 Verified By: QUAN JEONG MD CLINICAL STATEMENT: IMPRESSION: 1. No acute bone abnormality of the right ankle.2. Marked edema in the right lower leg. XR Chest 1 View Result Date: May 14, 2024 Verified By: QUAN JEONG MD CLINICAL STATEMENT: IMPRESSION: 1. Unchanged bilateral lung infiltrates.2. Small bilateral pleural effusions. XR Chest 1 View Result Date: May 13, 2024 Verified By: KODY MARINELLI DO CLINICAL STATEMENT: IMPRESSION: Endotracheal tube terminates 2.9 cm above the fadumo. Otherwise, stable exam. I have personally reviewed the images of this examination and agree with theresident's findings and interpretation. XR Chest 1 View Result Date: May 13, 2024 Verified By: QUAN JEONG MD CLINICAL STATEMENT: IMPRESSION: 1. Endotracheal tube and enteric tube are in satisfactory position.2. Stable bilateral lung infiltrates. XR Enteric Tube Placement Result Date: May 13, 2024 Verified By: QUAN JEONG MD CLINICAL STATEMENT: IMPRESSION: 1. Endotracheal tube tip is at the level of the fadumo and should beretracted 4 cm.2. Orogastric tube is in satisfactory position.3. Worsening bilateral lung infiltrates. XR Chest 1 View Result Date: May 13, 2024 Verified By: QUAN JEONG MD CLINICAL STATEMENT: IMPRESSION: 1. Endotracheal tube tip is at the level of the fadumo and should beretracted 4 cm.2. Orogastric tube is in satisfactory position.3. Worsening bilateral lung infiltrates. EKG No qualifying data available. Assessment/Plan Orders: bumetanide(Bumex), 1 mg= 1 tab(s), Oral, BID Consult to Physician, 05/22/24 12:00:00 EDT, RANI PAYTON MD, Routine, transfer of service ROUTINE EMERGENCY TREATMENT - Full Code, 05/22/24 12:02:00 EDT, Constant order 1. Acute exacerbation of diastolic heart failure 2. Severe pulmonary hypertension likely group 3 in the setting of obesity hypoventilation/obstructive sleep apnea 3. Prader-Willi syndrome 4. Mycoplasma pneumonia Acute exacerbation of diastolic heart failure, resolved Will initiate Bumex 1 mg oral twice daily as her maintenance diuretic. Will slowly introduce GDMT as blood pressure tolerates. This can also be done as outpatient. Severe pulmonary hypertension likely WHO group 3 secondary to OHS Pulmonary following for optimization of BiPAP settings prior to transferring back to senior living. Initially senior living was not willing to accept the patient back Given concern that she may require AVAPS therapy. CTA chest was negative for PE. Doppler ultrasound was ordered 05/19/2024 report of her recent has done not been done. Discussed with nursing staff. Results pending Autoimmune serology pending. Aggressive weight loss is necessary Mycoplasma pneumonia Last day of azithromycin 05/22/[address] Lugo about transfer to medicine service who accepted. From a cardiac standpoint, patient can be discharged. Pending SNF placement that can accept her BiPAP settings. Cardiology will follow as consult. Time Spent 30 minutes [1] Progress Note; FILOMENA LOUIS MD 05/21/2024 14:45 EDT Digitally Signed by FREDDIE COLEY MD on 05/22/2024 12:18 PM [facility] [id number] Consult note Date of Service May 22, 2024 Reason for Consultation Transfer of service Referring Physician Dr James Pate History of Present Illness A 43 years old female with past medical history significant for Prader-Willi syndrome, intellectualdisability, HFpEF, DACIA, pulmonary hypertension presented to [facility] on May 13 with a concern for increasing shortness of breath, she became unresponsive in the ED with agonal or possible absent breathing, initial rhythm was PEA 2 round of CPR completed prior to ROSC without any medications. She was emergently intubated and noted to be difficult due to anterior airway and body habitus, she became hypoxic resolved with multiple DuoNebs. Transferred to MICU for ongoing care, chest x-ray on admission showed pulmonary congestion with BNP greater than 8000. She was started on diuretics and cardiology was consulted. She responded well to diuretics and became extubated on May 14. She tested positive for mycoplasma IgM and was started on Rocephin and azithromycin, echocardiogramshowed EF of 60 to 65% with diastolic dysfunction and RVSP of 78 demonstrated severe pulmonary hypertension. Cardiology was consulted and the plan for diuresis along with dobutamine infusion. She waslater placed on BiPAP, pulmonology was consulted and recommended AVAPS. ABG showing acute on chronic hypercapnic respiratory failure with respiratory acidosis. CTA chest with contrast did not show evidence of PE but did show evidence of CHF and pulmonary edema. Patient is pending placement, since acute cardiac issues are resolved she was transferred to hospitalist team service. Vital signs, labs, imaging and EKG personally reviewed On my evaluation she was vitally stable, requiring 3 L of oxygen via nasal cannula which is her baseline. ABG done yesterday showed respiratory acidosis with venous pH of 7.30 and pCO2 of 100.1. CBC done today showed white count of 12,200, hemoglobin of 9.7. BMP done today showed serum bicarb of more than 40. CT angio chest with contrast as above, EKG done on May 12 showed sinus rhythm with QTc of 441 ms Echocardiogram as above Venous Doppler of lower extremities was negative for DVT/SVT. Review of Systems Review of systems are negative except as mentioned in HPI Physical Exam Vitals and Measurements T: 36.7 C (Oral) TMIN: 36.6 C (Oral) TMAX: 37.2 C (Axillary) HR: 71 (Monitored) RR: 20 BP: 104/60 SpO2: 98% Weight Current Weight Dosing Weight: 136.1 kg (05/13/24) Current Weight: 130.1 kg (05/19/24) General Appearance: Appears to be stable and in no acute distress Head: Atraumatic and normocephalic EENT: EOMI, PERRLA, no oropharyngeal erythema, no tonsillar exudates, no conjunctival injection. sclera anicteric. Neck: No thyromegaly, no cervical lymphadenopathy, trachea midline Cardiac: S1 and S2 normal. RRR. No murmurs, rubs, or gallops. No JVD. No hepatojugular reflex. Lungs: Good air entry bilaterally. No increased work for breathing. No wheezes, rhonchi, or rales. Abdomen: Soft, nontender, nondistended. Normoactive bowel sounds. No rebound or guarding. Negative Duran's sign. No hepatosplenomegaly. Musculoskeletal: Full range of motion upper and lower extremities. No CVA tenderness. Extremities: 2-3 positive edema bilateral lower extremities Neurological: No gross motor deficits Skin: No abrasions, scars, or hematomas on visible skin. No cyanosis. No purulent discharge. Psychiatric: Alert and oriented, well groomed, euthymic. cooperative Lab Results 05/22 02:52 WBC: 12.2 H Hgb: 9.7 L Hct: 30.9 L Platelet: 190 Neutrophil %: 74.3 Glucose Level: 112 H Sodium Level: 142 Potassium Level: 4.4 BUN: 18.0 Creatinine Lvl (s): 0.46 L 05/21 12:42 WBC: 13.3 H Hgb: 10.6 L Hct: 32.8 L Platelet: 205 Neutrophil %: 75.7 H Glucose Level: 91 Sodium Level: 141 Potassium Level: 4.2 BUN: 17.0 Creatinine Lvl (s): 0.40 L 05/21 03:23 WBC: 12.6 H Hgb: 10.4 L Hct: 32.4 L Platelet: 202 Neutrophil %: 74.4 Glucose Level: 110 Sodium Level: 145 Potassium Level: 4.0 BUN: 22.0 Creatinine Lvl (s): 0.55 pH: 7.432 (05/18/24 04:39:00) pCO2: 68.2 mm Hg Critical (05/18/24 04:39:00) pO2: 74.7 mm Hg (05/18/24 04:39:00) HCO3: 44.5 mmol/L High (05/18/24 04:39:00) CO2 Totl: 46.5 mmol/L Critical (05/18/24 04:39:00) Base Excess: 17 mmol/L (05/18/24 04:39:00) O2 Sat: 95.6 % (05/18/24 04:39:00) pH Venous: 7.302 Low (05/21/24 12:42:00) pCO2 Satish: 100.1 mm Hg High (05/21/24 12:42:00) pO2 Satish: 42.6 mm Hg High (05/21/24 12:42:00) HCO3 Satish: 48.4 mmol/L High (05/21/24 12:42:00) TCO2 Venous: 51.4 mmol/L Critical (05/21/24 12:42:00) BE Venous: 17.7 mmol/L High (05/21/24 12:42:00) O2 Sat Satish: 72.9 % (05/21/24 12:42:00) WBC: 12.2 10^3/mcL High (05/22/24 02:52:00) RBC: 3.07 10^6/mcL Low (05/22/24 02:52:00) Hgb: 9.7 G/dL Low (05/22/24 02:52:00) Hct: 30.9 % Low (05/22/24 02:52:00) MCV: 100.9 fL High (05/22/24 02:52:00) MCH: 31.7 pg (05/22/24 02:52:00) MCHC: 31.4 G/dL Low (05/22/24 02:52:00) RDW: 14.6 % (05/22/24 02:52:00) Platelet: 190 10^3/mcL (05/22/24 02:52:00) MPV: 9.2 fL (05/22/24 02:52:00) Monocyte Distribution Width: 20.86 High (05/12/24 21:51:00) Neutrophil %: 74.3 % (05/22/24 02:52:00) Lymphocyte %: 11.8 % Low (05/22/24 02:52:00) Monocyte %: 7.8 % (05/22/24 02:52:00) Eosinophil %: 5.8 % (05/22/24 02:52:00) Basophil %: 0.3 % (05/22/24 02:52:00) Neutrophil, Absolute: 9.1 10^3/mcL High (05/22/24 02:52:00) Lymphocyte, Absolute: 1.4 10^3/mcL (05/22/24 02:52:00) Monocyte, Absolute: 0.9 10^3/mcL (05/22/24 02:52:00) Eosinophil, Absolute: 0.7 10^3/mcL (05/22/24 02:52:00) Basophil, Absolute: 0 10^3/mcL (05/22/24 02:52:00) RBC Morph: Normal (05/12/24 21:51:00) Platelet Estimate: Adequate (05/12/24 21:51:00) UA Specimen Type: Beckwith Catheter (05/13/24 02:44:00) UA Color: Yellow (05/13/24 02:44:00) UA Appear: Clear (05/13/24 02:44:00) UA Spec Grav: 1.015 (05/13/24 02:44:00) UA Glucose: Negative. (05/13/24 02:44:00) UA Bili: Negative. (05/13/24 02:44:00) UA Ketones: Negative.1 (05/13/24 02:44:00) UA Blood: Large Abnormal (05/13/24 02:44:00) UA pH: 5.5 (05/13/24 02:44:00) UA Protein: Trace (05/13/24 02:44:00) UA Urobilinogen: 0.2 (05/13/24 02:44:00) UA Nitrite: Negative. (05/13/24 02:44:00) UA Leuk Est: Small Abnormal (05/13/24 02:44:00) UA RBC: 25-50 Abnormal (05/13/24 02:44:00) UA WBC: 0-2 (05/13/24 02:44:00) UA Squam Epithelial: 3-5 (05/13/24 02:44:00) UA Amorphus: Trace (05/13/24 02:44:00) UA Bacteria: Trace Abnormal (05/13/24 02:44:00) UA Coarse Granular Casts: Rare Abnormal (05/13/24 02:44:00) Glucose Level: 112 mg/dL High (05/22/24 02:52:00) Sodium Level: 142 mEq/L (05/22/24 02:52:00) Potassium Level: 4.4 mEq/L (05/22/24 02:52:00) Chloride: 98 mEq/L (05/22/24 02:52:00) CO2: >40 Critical (05/22/24 02:52:00) Electrolyte Balance: See Comment (05/22/24 02:52:00) BUN: 18 mg/dL (05/22/24 02:52:00) Creatinine Lvl (s): 0.46 mg/dL Low (05/22/24 02:52:00) Estimated Glomerular Filtration Rate: >120 (05/22/24 02:52:00) BUN/Creatinine Ratio: 39.1 ratio High (05/22/24 02:52:00) Calcium Lvl: 9.1 mg/dL (05/22/24 02:52:00) Magnesium Lvl: 2.4 mg/dL (05/22/24 02:52:00) Phosphorus: 3 mg/dL (05/13/24 03:57:00) Total Protein: 6.6 G/dL (05/21/24 12:42:00) Albumin Level: 2.7 G/dL Low (05/21/24 12:42:00) Globulin: 3.9 G/dL High (05/21/24 12:42:00) A/G Ratio: 0.7 ratio Low (05/21/24 12:42:00) Bili Total: 0.3 mg/dL (05/21/24 12:42:00) Bili Direct: 0.1 mg/dL (05/16/24 07:56:00) Bili Indirect: 0.2 mg/dL (05/16/24 07:56:00) Alk Phos: 84 U/L (05/21/24 12:42:00) AST/SGOT: 21 U/L (05/21/24 12:42:00) ALT/SGPT: 25 U/L (05/21/24 12:42:00) Iron: 78 mcg/dL (05/21/24 05:37:00) TIBC: 341 mcg/dL (05/21/24 05:37:00) Iron Sat: 23 % (05/21/24 05:37:00) Hgb A1c: 5.3 % (05/16/24 07:56:00) Est Avg Glucose: 105 mg/dL (05/16/24 07:56:00) Calcium Ionized: 1.02 mmol/L Low (05/13/24 03:57:00) Lactic Acid Lvl: 0.6 mmol/L (05/21/24 12:42:00) Ferritin: 97 ng/mL (05/21/24 03:23:00) Cholesterol: 171 mg/dL (05/17/24 06:29:00) Triglycerides: 93 mg/dL (05/17/24 06:29:00) HDL Cholesterol: 49 mg/dL (05/17/24 06:29:00) LDL Cholesterol: 103 mg/dL (05/17/24 06:29:00) N-Terminal proBNP: 1334 pg/mL High (05/18/24 05:37:00) High Sensitivity Troponin I: 38 ng/L High (05/13/24 03:57:00) TSH: 4.296 mIU/mL (05/21/24 03:23:00) Mycoplasma IgM: Positive.1 Abnormal (05/13/24 03:57:00) Mycoplasma IgG: Positive DSX (05/13/24 03:57:00) Hep A IgM Ab: Non-Reactive ADM (05/21/24 05:37:00) Hep A IgM Ab Int: See Interp (05/21/24 05:37:00) Hep B Core IgM Ab: Non-Reactive ADM (05/21/24 05:37:00) Hep B Core IgM Ab Int: See Interp (05/21/24 05:37:00) Hep B Surf Ag: Non-Reactive ADM (05/21/24 05:37:00) Hep C Ab: Non-Reactive ADM (05/21/24 05:37:00) Hep C Ab Int: See Interp (05/21/24 05:37:00) HIV 1/2 Ab: Non-Reactive ADM (05/21/24 05:37:00) HIV 1/2 Ab Int: HIV 1/2 Ab Int (05/21/24 05:37:00) Adenovirus: Not Detected TORCH (05/13/24 02:44:00) Coronavirus HKU1 (Not COVID-19): Not Detected TORCH (05/13/24 02:44:00) Coronavirus NL63 (Not COVID-19): Not Detected TORCH (05/13/24 02:44:00) Coronavirus 229E (Not COVID-19): Not Detected TORCH (05/13/24 02:44:00) Coronavirus OC43 (Not COVID-19): Not Detected TORCH (05/13/24 02:44:00) SARS-CoV-2: Not Detected TORCH (05/13/24 02:44:00) Human Metapneumovirus: Not Detected TORCH (05/13/24 02:44:00) Influenza A: Not Detected TORCH (05/13/24 02:44:00) Influenza B: Not Detected TORCH (05/13/24 02:44:00) Parainfluenza 1: Not Detected TORCH (05/13/24 02:44:00) Parainfluenza 2: Not Detected TORCH (05/13/24 02:44:00) Parainfluenza 3: Not Detected TORCH (05/13/24 02:44:00) Parainfluenza 4: Not Detected TORCH (05/13/24 02:44:00) Rhinovirus/Enterovirus: Not Detected TORCH (05/13/24 02:44:00) Respiratory Syncytial Virus: Not Detected TORCH (05/13/24 02:44:00) Mycoplasma pneumoniae: Not Detected TORCH (05/13/24 02:44:00) Chlamydophila pneumoniae: Not Detected TORCH (05/13/24 02:44:00) Bordetella Pertussis: Not Detected TORCH (05/13/24 02:44:00) Bordetella Parapertussis: Not Detected TORCH (05/13/24 02:44:00) SARS-CoV-2 PCR: Cepheid Neg (05/12/24 22:43:00) FLU A PCR: Cepheid Neg (05/12/24 22:43:00) FLU B PCR: Cepheid Neg (05/12/24 22:43:00) RSV PCR: Cepheid Neg (05/12/24 22:43:00) MRSA (PCR): Not Detected Cepheid (05/13/24 02:44:00) MRSA PCR Int: See Below1 (05/13/24 02:44:00) Culture Blood: Auth (Verified) See Result (05/12/24 22:03:00) Culture Blood: Auth (Verified) See Result (05/12/24 22:03:00) Legionella Urine Ag: Auth (Verified) See Result (05/13/24 02:44:00) Streptococcus Pneumoniae Urine Antig: Auth (Verified) See Result (05/13/24 02:44:00) Blood Glucose, Capillary: 126 mg/dL High (05/15/24 15:15:00) Blood Glucose Testing Reason: Routine (05/15/24 15:15:00) Blood Glucose Interventions: Administered food/juice (05/14/24 13:40:00) Imaging Results and Diagnostics CT Angiography Chest w/ Contrast Result Date: May 20, 2024 Verified By: MIKEY WINKLER MD CLINICAL STATEMENT: IMPRESSION: No evidence of pulmonary embolism. Findings suggestive of heart dysfunction. Areas of confluent ground-glassopacity and bronchial thickening in the lungs which could be related, forexample pulmonary edema. Correlate clinically and follow-up to resolution. XR Chest 1 View Result Date: May 19, 2024 Verified By: ESTHER CABALLERO MD CLINICAL STATEMENT: IMPRESSION: Right upper lobe consolidation, slightly worse compared to the prior study.This may represent worsening pneumonia, and follow-up is recommended. XR Chest 1 View Result Date: May 18, 2024 Verified By: ADENIKE FERNANDES, QUAN Campbell CLINICAL STATEMENT: IMPRESSION: Interval right internal jugular central venous catheter placement with itstip overlyingthe proximal right atrium. No postprocedure pneumothorax. No significant change in bilateral mixed airspace and interstitial opacitiesand small bilateral pleural effusions. I have personally reviewedthe images of this examination, and agree with theresident's findings and interpretation. XR Chest 2 Views Result Date: May 17, 2024 Verified By: LORI WESLEY DO CLINICAL STATEMENT: IMPRESSION: No significant change in widespread bilateral mixed interstitial and alveolarairspace disease which may represent pulmonary edema or pneumonia. Stablesuspected small bilateral pleural effusions. XR Chest 1 View Result Date: May 15, 2024 Verified By: ADENIKE FERNANDES, QUAN Campbell CLINICAL STATEMENT: IMPRESSION: Extensive bilateral lung infiltrates consistent with pneumonia, pulmonaryedema, and/or ARDS. XR Chest 1 View Result Date: May 14, 2024 Verified By: KODY MARINELLI DO CLINICAL STATEMENT: IMPRESSION: Findings above most suggestive of pulmonary edema, relatively similar to theprior exam.Consider infection in the appropriate clinical setting. I have personally reviewed the images of this examination and agree with theresident's findings and interpretation. XR Ankle Minimum 3 Views Right Result Date: May 14, 2024 Verified By: QUAN JEONG MD CLINICAL STATEMENT: IMPRESSION: 1. No acute bone abnormality of the right ankle.2. Marked edema in the right lower leg. XR Chest 1 View Result Date: May 14, 2024 Verified By: QUAN JEONG MD CLINICAL STATEMENT: IMPRESSION: 1. Unchanged bilateral lung infiltrates.2. Small bilateral pleural effusions. XR Chest 1 View Result Date: May 13, 2024 Verified By: KODY MARINELLI DO CLINICAL STATEMENT: IMPRESSION: Endotracheal tube terminates 2.9 cm above the fadumo. Otherwise, stable exam. I have personally reviewed the images of this examination and agree with theresident's findings and interpretation. XR Chest 1 View Result Date: May 13, 2024 Verified By: QUAN JEONG MD CLINICAL STATEMENT: IMPRESSION: 1. Endotracheal tube and enteric tube are in satisfactory position.2. Stable bilateral lung infiltrates. XR Enteric Tube Placement Result Date: May 13, 2024 Verified By: QUAN JEONG MD CLINICAL STATEMENT: IMPRESSION: 1. Endotracheal tube tip is at the level of the fadumo and should beretracted 4 cm.2. Orogastric tube is in satisfactory position.3. Worsening bilateral lung infiltrates. XR Chest 1 View Result Date: May 13, 2024 Verified By: QUAN JEONG MD CLINICAL STATEMENT: IMPRESSION: 1. Endotracheal tube tip is at the level of the fadumo and should beretracted 4 cm.2. Orogastric tube is in satisfactory position.3. Worsening bilateral lung infiltrates. 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 Some of the meaning of the words and sentences might have changed during electric motors salesperson, if there was ever some confusion about the meaning of some sentences, please do not hesitate to contact me. Problem List/Past Medical History Historical CHF (congestive heart failure) Prader-Willi syndrome Procedure/Surgical History No qualifying data available. Medications Inpatient aspirin 81 mg oral delayed release tablet, 81 mg= 1 tab(s), Oral, Daily atorvastatin, 20 mg= 1 tab(s), Oral, Daily Bumex, 1 mg= 1 tab(s), Oral, BID Cepacol Sore Throat lozenge, 1 lozenge(s), Oral, q2h, PRN Claritin, 10 mg= 1 tab(s), Oral, qDay, PRN Dextrose 50% IV Push, 25 gram(s)= 50 mL, IV Push, AsDirected, PRN DuoNeb, 3 mL, Inhalation, q2hRT, PRN guaiFENesin 600 mg oral tablet, extended release, 600 mg= 1 tab(s), Oral, BID heparin 5000 units/mL injection, 5000 unit(s)= 1 mL, Subcutaneous, q8h levothyroxine, 100 mcg= 1 tab(s), Oral, qDay Lidocaine (Xylocaine) Viscous 2% mucous membrane soln, 5 mL, Swish & Spit, achs, PRN magnesium sulfate for IV bolus, 2 gram(s)= 50 mL, IV Piggyback, AsDirected, PRN magnesium sulfate for IV bolus, 4 gram(s)= 100 mL, IV Piggyback, AsDirected, PRN magnesium sulfate for IV bolus miconazole 2% topical powder, 1 cristian, Topical, qHS Miralax Powder Packet, 17 gram(s)= 15 mL, Oral, qDay potassium chloride, 20 mEq= 1 tab(s), Oral, AsDirected, PRN potassium chloride, 40 mEq= 2 tab(s), Oral, AsDirected, PRN potassium chloride, 40 mEq= 2 tab(s), Oral, AsDirected, PRN potassium chloride bolus, 20 mEq= 100 mL, IV Piggyback, AsDirected, PRN Protonix IV Push, 40 mg, IV Push, qDayAC Senokot S, 2 tab(s), Oral, BID Tessalon Perles, 100 mg= 1 cap(s), Oral, TID, PRN Home ammonium lactate 12% topical cream, 1 cristian, Topical, qHS aspirin 81 mg oral delayed release tablet, 81 mg= 1 tab(s), Oral, Daily Breo Ellipta 100 mcg-25 mcg/inh inhalation powder, 1 puff(s), Inhalation, Daily calcium carbonate 500 mg (200 mg elemental calcium) oral tablet, chewable, 500 mg= 1 tab(s), Chewed, BID carvedilol 3.125 mg oral tablet, 3.125 mg= 1 tab(s), Oral, BIDM clotrimazole 1% topical cream, 1 cristian, Topical, BID Dulera 100 mcg-5 mcg/inh Metered Dose Inhaler, 2 puff(s), Inhalation, BID EPINEPHrine 0.3 mg injectable kit, 0.3 mg= 1 EA, Intramuscular, AsDirected, PRN fluticasone proprionate NASAL 50 mcg/ spray, 50 mcg= 1 spray(s), Nostril, each, qAM levothyroxine 100 mcg (0.1 mg) oral tablet, 100 mcg= 1 tab(s), Oral, qDay norethindrone 0.35 mg oral tablet, 0.35 mg= 1 tab(s), Oral, qDay nystatin 100,000 units/g topical powder, 1 cristian, Topical, qHS omega-3 polyunsaturated fatty acids ethyl esters 1000 mg oral capsule, 2000 mg= 2 cap(s), Oral, qDay Therapeutic Multiple Vitamins with Minerals, Zinc and Elderberry oral tablet, chewable, 1 tab, Chewed, qDay torsemide 20 mg oral tablet, 20 mg= 1 tab(s), Oral, BID Allergies Bee Stings Dilantin misc non-codified allergy Immunizations No qualifying data available. Digitally Signed by KAYLAN LUGO MD on 05/22/2024 02:33 PM [id number] Card[facility] Progress note Date of Service 05/22/2024 12:16:49 Chief Complaint This is a 43-year-old female with a past medical history significant for Prader- Willi and c DACIA on CPAP who initially had presented to the hospital due to altered mental status. Went into PEA arrest for which 2 rounds of CPR were performed with restored ROSC. Patient was intubated for airway protection and extubated on 05/15/2024. And treated for mycoplasma pneumonia with Rocephin and azithromycin within MICU. Cardiology was consulted given EKG showed anterior wall T wave inversions and patient was severely fluid overloaded. NT proBNP was greater than 8000. Patient was started on diuresis and transferred to CCU given concern that the patient may require dobutamine assisted diuresis. TTE on 05/14 showed EF of 60 to 65% with diastolic dysfunction and RVSP of 78 mmHg suggestive of severe pulmonary hypertension. CTA of the chest was negative for pulmonary embolism but did show findings suggestive of congestive heart failure and pulmonary edema for which the patient underwent aggressive diuresis [1] Subjective No acute complaints Objective Vitals and Measurements T: 37.2 C (Axillary) TMIN: 36.6 C (Oral) TMAX: 37.2 C (Axillary) HR: 74 (Monitored) RR: 23 BP: 127/50 SpO2: 96% Intake and Output 7AM Yesterday to 7AM Today Intake and Output (Last 24 hours) Intake Oral Intake 480.00 Output Urine Voided 200.00 Urinary Catheter Output: 700.00 Stool Count 1.00 Diaper Count 1.00 Total Summary Total Intake 480.00 Total Output 900.00 Fluid Balance -420.00 Physical Exam General Appearance: NAD EENT: MOIST MEMBRANES Neck: NO APPRECIABLE JVD Cardiac: RRR Lungs: CTAB Abdomen: NON TENDER TO PALPATION Extremities: Edema noted, markedly improved from prior exams Neurological: AOX3 Psychiatric: NORMAL AFFECT Weight Current Weight Dosing Weight: 136.1 kg (05/13/24) Current Weight: 130.1 kg (05/19/24) Medications Medications (23) Active Scheduled: (10) aspirin 81 mg EC 81 mg 1 tab(s), Oral, Daily atorvastatin 20 mg tablet 20 mg 1 tab(s), Oral, Daily bumetanide 1 mg tablet 1 mg 1 tab(s), Oral, BID docusate-senna (Senokot S) 50 mg-8.6 mg Tablet 2 tab(s), Oral, BID guaifenesin 600 mg ER 600 mg 1 tab(s), Oral, BID heparin 5,000 units/mL (1 mL) vial 5,000 unit(s) 1 mL, Subcutaneous, q8h levothyroxine 100 mcg tablet 100 mcg 1 tab(s), Oral, qDay miconazole topical 2% Powder 1 cristian, Topical, qHS pantoprazole 40 mg VIAL 40 mg, IV Push, qDayAC polyethylene glycol 3350 - UD packet 17 gram(s) 15 mL, Oral, qDay Continuous: (0) PRN: (13) albuterol - ipratropium 2.5 mg-0.5 mg/3 mL Inhal Jewell UD 3 mL, Inhalation, q2hRT benzocaine-menthol (Cepacol Sore Throat) 15 mg-3.6mg lozenge 1 lozenge(s), Oral, q2h benzonatate 100 mg Capsule 100 mg 1 cap(s), Oral, TID dextrose 50% Solution Disp syringe 50 mL 25 gram(s) 50 mL, IV Push, AsDirected lidocaine topical 2% viscous 100 mL 5 mL, Swish & Spit, achs loratadine 10 mg Tablet 10 mg 1 tab(s), Oral, qDay magnesium sulfate 4 gram(s)/100mL PMX 4 g 100 mL, IV Piggyback, AsDirected magnesium sulfate 50% (500mg/mL) 6 g 12 mL, IV Piggyback, AsDirected magnesium sulfate PMX 2 g 50 mL, IV Piggyback, AsDirected potassium chloride (PMX) 20 mEq/100 mL 20 mEq 100 mL, IV Piggyback, AsDirected potassium chloride 20 mEq ER tablet 20 mEq 1 tab(s), Oral, AsDirected potassium chloride 20 mEq ER tablet 40 mEq 2 tab(s), Oral, AsDirected potassium chloride 20 mEq ER tablet 40 mEq 2 tab(s), Oral, AsDirected Lab Results [facility] 05/22/24 02:52 05/21/24 12:42 05/21/24 03:23 Glucose Level 112 mg/dL H 91 mg/dL 110 mg/dL Sodium Level 142 mEq/L 141 mEq/L 145 mEq/L Potassium Level 4.4 mEq/L 4.2 mEq/L 4.0 mEq/L Chloride 98 mEq/L 94 mEq/L L 95 mEq/L L CO2 >40 mEq/L C >40 mEq/L C >40 mEq/L C BUN 18.0 mg/dL 17.0 mg/dL 22.0 mg/dL Creatinine Lvl (s) 0.46 mg/dL L 0.40 mg/dL L 0.55 mg/dL BUN/Creatinine Ratio 39.1 ratio H 42.5 ratio H 40.0 ratio H Calcium Lvl 9.1 mg/dL 9.2 mg/dL 9.2 mg/dL Total Protein 6.6 G/dL Albumin Level 2.7 G/dL L Globulin 3.9 G/dL H A/G Ratio 0.7 ratio L Bili Total 0.30 mg/dL Alk Phos 84 U/L AST/SGOT 21 U/L ALT/SGPT 25 U/L Estimated Glomerular Filtration Rate >120 ml/min/1.73sqm >120 ml/min/1.73sqm 118 ml/min/1.73sqm CBC 05/22/24 02:52 05/21/24 12:42 05/21/24 03:23 Hct 30.9 % L 32.8 % L 32.4 % L Hgb 9.7 G/dL L 10.6 G/dL L 10.4 G/dL L MCH 31.7 pg 32.4 pg 32.2 pg MCHC 31.4 G/dL L 32.4 G/dL 32.0 G/dL MCV 100.9 fL H 100.0 fL H 100.7 fL H MPV 9.2 fL 8.7 fL 8.7 fL Platelet 190 10^3/mcL 205 10^3/mcL 202 10^3/mcL RBC 3.07 10^6/mcL L 3.28 10^6/mcL L 3.22 10^6/mcL L RDW 14.6 % 14.8 % 14.9 % WBC 12.2 10^3/mcL H 13.3 10^3/mcL H 12.6 10^3/mcL H Cardiac Enzymes Cardiac Enzymes High Sensitivity Troponin I: 38 ng/L High (05/13/24 03:57:00) N-Terminal proBNP: 1334 pg/mL High (05/18/24 05:37:00) Lipids Lipids Cholesterol: 171 mg/dL (05/17/24 06:29:00) HDL Cholesterol: 49 mg/dL (05/17/24 06:29:00) LDL Cholesterol: 103 mg/dL (05/17/24 06:29:00) Triglycerides: 93 mg/dL (05/17/24 06:29:00) Imaging Results and Diagnostics CT Angiography Chest w/ Contrast Result Date: May 20, 2024 Verified By: MIKEY WINKLER MD CLINICAL STATEMENT: IMPRESSION: No evidence of pulmonary embolism. Findings suggestive of heart dysfunction. Areas of confluent ground-glassopacity and bronchial thickening in the lungs which could be related, forexample pulmonary edema. Correlate clinically and follow-up to resolution. XR Chest 1 View Result Date: May 19, 2024 Verified By: ESTHER CABALLERO MD CLINICAL STATEMENT: IMPRESSION: Right upper lobe consolidation, slightly worse compared to the prior study.This may represent worsening pneumonia, and follow-up is recommended. XR Chest 1 View Result Date: May 18, 2024 Verified By: QUAN JEONG MD CLINICAL STATEMENT: IMPRESSION: Interval right internal jugular central venous catheter placement with itstip overlyingthe proximal right atrium. No postprocedure pneumothorax. No significant change in bilateral mixed airspace and interstitial opacitiesand small bilateral pleural effusions. I have personally reviewedthe images of this examination, and agree with theresident's findings and interpretation. XR Chest 2 Views Result Date: May 17, 2024 Verified By: LORI WESLEY DO CLINICAL STATEMENT: IMPRESSION: No significant change in widespread bilateral mixed interstitial and alveolarairspace disease which may represent pulmonary edema or pneumonia. Stablesuspected small bilateral pleural effusions. XR Chest 1 View Result Date: May 15, 2024 Verified By: QUAN JEONG MD CLINICAL STATEMENT: IMPRESSION: Extensive bilateral lung infiltrates consistent with pneumonia, pulmonaryedema, and/or ARDS. XR Chest 1 View Result Date: May 14, 2024 Verified By: KODY MARINELLI DO CLINICAL STATEMENT: IMPRESSION: Findings above most suggestive of pulmonary edema, relatively similar to theprior exam.Consider infection in the appropriate clinical setting. I have personally reviewed the images of this examination and agree with theresident's findings and interpretation. XR Ankle Minimum 3 Views Right Result Date: May 14, 2024 Verified By: QUAN JEONG MD CLINICAL STATEMENT: IMPRESSION: 1. No acute bone abnormality of the right ankle.2. Marked edema in the right lower leg. XR Chest 1 View Result Date: May 14, 2024 Verified By: QUAN JEONG MD CLINICAL STATEMENT: IMPRESSION: 1. Unchanged bilateral lung infiltrates.2. Small bilateral pleural effusions. XR Chest 1 View Result Date: May 13, 2024 Verified By: KODY MARINELLI DO CLINICAL STATEMENT: IMPRESSION: Endotracheal tube terminates 2.9 cm above the fadumo. Otherwise, stable exam. I have personally reviewed the images of this examination and agree with theresident's findings and interpretation. XR Chest 1 View Result Date: May 13, 2024 Verified By: QUAN JEONG MD CLINICAL STATEMENT: IMPRESSION: 1. Endotracheal tube and enteric tube are in satisfactory position.2. Stable bilateral lung infiltrates. XR Enteric Tube Placement Result Date: May 13, 2024 Verified By: QUAN JEONG MD CLINICAL STATEMENT: IMPRESSION: 1. Endotracheal tube tip is at the level of the fadumo and should beretracted 4 cm.2. Orogastric tube is in satisfactory position.3. Worsening bilateral lung infiltrates. XR Chest 1 View Result Date: May 13, 2024 Verified By: QUAN JEONG MD CLINICAL STATEMENT: IMPRESSION: 1. Endotracheal tube tip is at the level of the fadumo and should beretracted 4 cm.2. Orogastric tube is in satisfactory position.3. Worsening bilateral lung infiltrates. EKG No qualifying data available. Assessment/Plan Orders: bumetanide(Bumex), 1 mg= 1 tab(s), Oral, BID Consult to Physician, 05/22/24 12:00:00 EDT, RANI PAYTON MD, Routine, transfer of service ROUTINE EMERGENCY TREATMENT - Full Code, 05/22/24 12:02:00 EDT, Constant order 1. Acute exacerbation of diastolic heart failure 2. Severe pulmonary hypertension likely group 3 in the setting of obesity hypoventilation/obstructive sleep apnea 3. Prader-Willi syndrome 4. Mycoplasma pneumonia Acute exacerbation of diastolic heart failure, resolved Will initiate Bumex 1 mg oral twice daily as her maintenance diuretic. Will slowly introduce GDMT as blood pressure tolerates. This can also be done as outpatient. Severe pulmonary hypertension likely WHO group 3 secondary to OHS Pulmonary following for optimization of BiPAP settings prior to transferring back to senior living. Initially senior living was not willing to accept the patient back Given concern that she may require AVAPS therapy. CTA chest was negative for PE. Doppler ultrasound was ordered 05/19/2024 report of her recent has done not been done. Discussed with nursing staff. Results pending Autoimmune serology pending. Aggressive weight loss is necessary Mycoplasma pneumonia Last day of azithromycin 05/22/[address] Lugo about transfer to medicine service who accepted. From a cardiac standpoint, patient can be discharged. Pending SNF placement that can accept her BiPAP settings. Cardiology will follow as consult. Time Spent 30 minutes [1] Progress Note; FILOMENA LOUIS MD 05/21/2024 14:45 EDT Digitally Signed by FREDDIE COLEY MD on 05/22/2024 12:18 PM [id number] Cardiology Progress note Date of Service 05/21/2024 Subjective This is a 43-year-old female with a past medical history significant for Prader- Willi and c DACIA on CPAP who initially had presented to the hospital due to altered mental status. Went into PEA arrest for which 2 rounds of CPR were performed with restored ROSC. Patient was intubated for airway protection and extubated on 05/15/2024. And treated for mycoplasma pneumonia with Rocephin and azithromycin within MICU. Cardiology was consulted given EKG showed anterior wall T wave inversions and patient was severely fluid overloaded. NT proBNP was greater than 8000. Patient was started on diuresis and transferred to CCU given concern that the patient may require dobutamine assisted diuresis. TTE on 05/14 showed EF of 60 to 65% with diastolic dysfunction and RVSP of 78 mmHg suggestive of severe pulmonary hypertension. CTA of the chest was negative for pulmonary embolism but did show findings suggestive of congestive heart failure and pulmonary edema for which the patient underwent aggressive diuresis. No new complaints Intake and Output 7AM Yesterday to 7AM Today Intake and Output (Last 24 hours) Intake Oral Intake 480.00 Output Urinary Catheter Output: 1300.00 Total Summary Total Intake 480.00 Total Output 1300.00 Fluid Balance -820.00 Physical Exam Alert and oriented x 3 no acute distress Neck exam: No obvious masses, no significant JVD Chest: diminished, poor inspiratory effort Heart: S1-S2 regular no significant murmurs rubs or gallops. Abdomen: Soft nontender nondistended bowel sounds positive Extremities: + significant edema noted Neurological: Grossly intact Weight Current Weight Dosing Weight: 136.1 kg (05/13/24) Current Weight: 130.1 kg (05/19/24) Medications Medications (23) Active Scheduled: (10) aspirin 81 mg EC 81 mg 1 tab(s), Oral, Daily atorvastatin 20 mg tablet 20 mg 1 tab(s), Oral, Daily azithromycin IV 500 mg 5 mL, IV Piggyback, qDay docusate-senna (Senokot S) 50 mg-8.6 mg Tablet 2 tab(s), Oral, BID guaifenesin 600 mg ER 600 mg 1 tab(s), Oral, BID heparin 5,000 units/mL (1 mL) vial 5,000 unit(s) 1 mL, Subcutaneous, q8h levothyroxine 100 mcg tablet 100 mcg 1 tab(s), Oral, qDay miconazole topical 2% Powder 1 cristian, Topical, qHS pantoprazole 40 mg VIAL 40 mg, IV Push, qDayAC polyethylene glycol 3350 - UD packet 17 gram(s) 15 mL, Oral, qDay Continuous: (0) PRN: (13) albuterol - ipratropium 2.5 mg-0.5 mg/3 mL Inhal Jewell UD 3 mL, Inhalation, q2hRT benzocaine-menthol (Cepacol Sore Throat) 15 mg-3.6mg lozenge 1 lozenge(s), Oral, q2h benzonatate 100 mg Capsule 100 mg 1 cap(s), Oral, TID dextrose 50% Solution Disp syringe 50 mL 25 gram(s) 50 mL, IV Push, AsDirected lidocaine topical 2% viscous 100 mL 5 mL, Swish & Spit, achs loratadine 10 mg Tablet 10 mg 1 tab(s), Oral, qDay magnesium sulfate 4 gram(s)/100mL PMX 4 g 100 mL, IV Piggyback, AsDirected magnesium sulfate 50% (500mg/mL) 6 g 12 mL, IV Piggyback, AsDirected magnesium sulfate PMX 2 g 50 mL, IV Piggyback, AsDirected potassium chloride (PMX) 20 mEq/100 mL 20 mEq 100 mL, IV Piggyback, AsDirected potassium chloride 20 mEq ER tablet 20 mEq 1 tab(s), Oral, AsDirected potassium chloride 20 mEq ER tablet 40 mEq 2 tab(s), Oral, AsDirected potassium chloride 20 mEq ER tablet 40 mEq 2 tab(s), Oral, AsDirected Lab Results 05/21 12:42 WBC: 13.3 H Hgb: 10.6 L Hct: 32.8 L Platelet: 205 Neutrophil %: 75.7 H Glucose Level: 91 Sodium Level: 141 Potassium Level: 4.2 BUN: 17.0 Creatinine Lvl (s): 0.40 L 05/21 03:23 WBC: 12.6 H Hgb: 10.4 L Hct: 32.4 L Platelet: 202 Neutrophil %: 74.4 Glucose Level: 110 Sodium Level: 145 Potassium Level: 4.0 BUN: 22.0 Creatinine Lvl (s): 0.55 05/20 12:25 Glucose Level: 101 Sodium Level: 142 Potassium Level: 4.2 BUN: 23.0 H Creatinine Lvl (s): 0.58 05/20 04:32 WBC: 10.1 Hgb: 9.8 L Hct: 29.8 L Platelet: 192 Neutrophil %: 70.9 Glucose Level: 131 H Sodium Level: 147 H Potassium Level: 3.9 BUN: 24.0 H Creatinine Lvl (s): 0.64 EKG No qualifying data available. Assessment/Plan 1. Acute exacerbation of diastolic heart failure 2. Severe pulmonary hypertension likely group 3 in the setting of obesity hypoventilation/obstructive sleep apnea 3. Prader-Willi syndrome 4. Mycoplasma pneumonia Acute exacerbation of diastolic heart failure IVC is collapsing likely contributing to patient's hypotension. Will discontinue diuretic therapy at this time. Diuretic holiday for today and will optimize with an SGLT2 inhibitor, MRA plus or minusmaintenance diuretics tomorrow if renal function and blood pressure allow Severe pulmonary hypertension likely WHO group 3 secondary to OHS Will consult pulmonology for optimization of BiPAP settings prior to transferring back to senior living. Initially senior living was not willing to accept the patient back Given concern that she may require AVAPS therapy. CTA chest was negative for PE. Doppler ultrasound was ordered 05/19/2024 report of her recent has done not been done. Discussed with nursing staff. Results pending Autoimmune serology pending. Aggressive weight loss is necessary Mycoplasma pneumonia Last day of azithromycin tomorrow Potentially can be discharged this weekend if SBP is stable. Triple lumen can be removed Digitally Signed by FILOMENA LOUIS MD on 05/21/2024 04:24 PM Digitally Signed by FILOMENA LOUIS MD on 05/21/2024 04:24 PM [facility] [id number] Note* Exam Date Time Procedure Performing Provider Status 05/21/24 1:25 PM VL Venous US/Doppler Both Legs(for DVT) RAVI SALDAÑA MD; Auth (Verified) [facility] [id number] Heart failure Progress note Date of Service 05/20/24 Subjective No new complaints Intake and Output 7AM Yesterday to 7AM Today Intake and Output (Last 24 hours) Intake Oral Intake 1120.00 Output Urinary Catheter Output: 3100.00 Total Summary Total Intake 1120.00 Total Output 3100.00 Fluid Balance -1980. Physical Exam Alert and oriented x 3 no acute distress Neck exam: No obvious masses, no singificant JVD Chest: diminished, poor inspiratory effort Heart: S1-S2 regular no significant murmurs rubs or gallops. Abdomen: Soft nontender nondistended bowel sounds positive Extremities: + significant edema noted Neurological: Grossly intact Weight Current Weight Dosing Weight: 136.1 kg (05/13/24) Current Weight: 130.1 kg (05/19/24) Medications Medications (24) Active Scheduled: (11) aspirin 81 mg EC 81 mg 1 tab(s), Oral, Daily atorvastatin 20 mg tablet 20 mg 1 tab(s), Oral, Daily azithromycin IV 500 mg 5 mL, IV Piggyback, qDay bumetanide 0.25 mg/1 mL 4 mL VIAL 2 mg 8 mL, IV Push, BID docusate-senna (Senokot S) 50 mg-8.6 mg Tablet 2 tab(s), Oral, BID guaifenesin 600 mg ER 600 mg 1 tab(s), Oral, BID heparin 5,000 units/mL (1 mL) vial 5,000 unit(s) 1 mL, Subcutaneous, q8h levothyroxine 100 mcg tablet 100 mcg 1 tab(s), Oral, qDay miconazole topical 2% Powder 1 cristian, Topical, qHS pantoprazole 40 mg VIAL 40 mg, IV Push, qDayAC polyethylene glycol 3350 - UD packet 17 gram(s) 15 mL, Oral, qDay Continuous: (0) PRN: (13) albuterol - ipratropium 2.5 mg-0.5 mg/3 mL Inhal Jewell UD 3 mL, Inhalation, q2hRT benzocaine-menthol (Cepacol Sore Throat) 15 mg-3.6mg lozenge 1 lozenge(s), Oral, q2h benzonatate 100 mg Capsule 100 mg 1 cap(s), Oral, TID dextrose 50% Solution Disp syringe 50 mL 25 gram(s) 50 mL, IV Push, AsDirected lidocaine topical 2% viscous 100 mL 5 mL, Swish & Spit, achs loratadine 10 mg Tablet 10 mg 1 tab(s), Oral, qDay magnesium sulfate 4 gram(s)/100mL PMX 4 g 100 mL, IV Piggyback, AsDirected magnesium sulfate 50% (500mg/mL) 6 g 12 mL, IV Piggyback, AsDirected magnesium sulfate PMX 2 g 50 mL, IV Piggyback, AsDirected potassium chloride (PMX) 20 mEq/100 mL 20 mEq 100 mL, IV Piggyback, AsDirected potassium chloride 20 mEq ER tablet 20 mEq 1 tab(s), Oral, AsDirected potassium chloride 20 mEq ER tablet 40 mEq 2 tab(s), Oral, AsDirected potassium chloride 20 mEq ER tablet 40 mEq 2 tab(s), Oral, AsDirected Lab Results 05/20 12:25 Glucose Level: 101 Sodium Level: 142 Potassium Level: 4.2 BUN: 23.0 H Creatinine Lvl (s): 0.58 05/20 04:32 WBC: 10.1 Hgb: 9.8 L Hct: 29.8 L Platelet: 192 Neutrophil %: 70.9 Glucose Level: 131 H Sodium Level: 147 H Potassium Level: 3.9 BUN: 24.0 H Creatinine Lvl (s): 0.64 05/19 04:41 WBC: 12.6 H Hgb: 10.2 L Hct: 31.9 L Platelet: 214 Neutrophil %: 78.1 H Glucose Level: 107 Sodium Level: 145 Potassium Level: 3.7 BUN: 23.0 H Creatinine Lvl (s): 0.58 EKG No qualifying data available. 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 Initial rhythm was PEA and 2 rounds of CPR completed prior to ROSC without any medication. Intubated. Transferred to [place] [facility]. Upon admissionto MICU, CXR showed pulmonary congestion BNP greater than 8000. Diuretics were started patient responded to diuresis. Extubated on 05/14. Transferred to the floor on 05/16. Positive test for mycoplasma, IgM ceftriaxone and erythromycin added. Echo 05/14 showed EF 60 to 65% with diastolic dysfunction and RVSP 78. Increasing shortness of breath 05/18, patient placed on BiPAP and transferred to CCU. Initial ABG showed significant respiratory acidosis. IV Bumex started and central access placed per critical care with ABGs improving on recheck. Acute HFpEF exacerbation with concern for cor pulmonale in the setting of severe pulm HTN WHO Gr 3 - Discussed with primary team. obtain CTA chest to RO PE - As OP, can plan for RHC to assess whether patient would benefit from PAH targeted therapy but suspect that patient patient;s pulmonary hypertension is related to OHS - Autoimmune panel pending - RAP 8mmHg. B lines present. IVC dilated but collapsing >50%, DC bumex drip. - ABG pending. Can likely remove central line and arterial line but will defer to primary team - HGB trending down from 11.4 to 9.8 without overt sign of bleeding. May be iatrogenic from blood draws. Will continue to monitor. Iron studies pending Digitally Signed by FILOMENA LOUIS MD on 05/20/2024 04:17 PM Digitally Signed by FILOMENA LOUIS MD on 05/20/2024 04:18 PM [facility] [id number] Note* Exam Date Time Procedure Performing Provider Status 05/20/24 6:[address] Angiography Chest w/ Contrast MIKEY FOWLER MD; Auth (Verified) [id number] ORIGINAL EXAMINATION: CTA OF THE CHEST 05/20/2024 6:24 pm TECHNIQUE: CTA of the chest was performed after the administration of intravenous contrast. Multiplanar reformatted images are provided for review. MIP images are provided for review. Automated exposure control, iterative reconstruction, and/or weight based adjustment of the mA/kV was utilized to reduce the radiation dose to as low as reasonably achievable. COMPARISON: Radiograph of the chest May 19, 2024 HISTORY: ORDERING SYSTEM PROVIDED HISTORY: Reason for Exam: R/O PE, RESP FAILURE r/o PE in hypoxia FINDINGS: Pulmonary Arteries: Pulmonary arteries are adequately opacified for evaluation. No evidence of intraluminal filling defect to suggest pulmonary embolism.. Mediastinum: Right-sided catheter distal tip terminates in the superior cavoatrial junction. Dilated right ventricle and right atrium. Nonaneurysmal thoracic aorta. Dilated pulmonary arteries which can be seen in pulmonary arterial hypertension. No pericardial effusion. A few mildly prominent mediastinal and hilar lymph nodes which are nonspecific. Lungs/pleura: Areas of confluent ground-glass opacity in the lungs. Pulmonary vascular congestion. Dependent and bibasilar atelectatic changes. Bronchial wall thickening. Low lung volumes. No pneumothorax. Upper Abdomen: No acute findings. Soft Tissues/Bones: Degenerative changes of the spine. IMPRESSION: No evidence of pulmonary embolism. Findings suggestive of heart dysfunction. Areas of confluent ground-glass opacity and bronchial thickening in the lungs which could be related, for example pulmonary edema. Correlate clinically and follow-up to resolution. Interpreted by: Mikey Winkler Preliminary Report By: Mikey Winkler Electronically signed By Mikey Winkler Dictated Date: 05/20/2024 6:33:50 PM Prelim Date: 05/20/2024 6:38:01 PM Sign Date: 05/20/2024 6:38:01 PM Ordering Provider: [facility]03-13-2025 Heart failure Progress note Date of Service 05/20/24 Subjective No new complaints Intake and Output 7AM Yesterday to 7AM Today Intake and Output (Last 24 hours) Intake Oral Intake 1120.00 Output Urinary Catheter Output: 3100.00 Total Summary Total Intake 1120.00 Total Output 3100.00 Fluid Balance - Physical Exam Alert and oriented x 3 no acute distress Neck exam: No obvious masses, no singificant JVD Chest: diminished, poor inspiratory effort Heart: S1-S2 regular no significant murmurs rubs or gallops. Abdomen: Soft nontender nondistended bowel sounds positive Extremities: + significant edema noted Neurological: Grossly intact Weight Current Weight Dosing Weight: 136.1 kg (05/13/24) Current Weight: 130.1 kg (05/19/24) Medications Medications (24) Active Scheduled: (11) aspirin 81 mg EC 81 mg 1 tab(s), Oral, Daily atorvastatin 20 mg tablet 20 mg 1 tab(s), Oral, Daily azithromycin IV 500 mg 5 mL, IV Piggyback, qDay bumetanide 0.25 mg/1 mL 4 mL VIAL 2 mg 8 mL, IV Push, BID docusate-senna (Senokot S) 50 mg-8.6 mg Tablet 2 tab(s), Oral, BID guaifenesin 600 mg ER 600 mg 1 tab(s), Oral, BID heparin 5,000 units/mL (1 mL) vial 5,000 unit(s) 1 mL, Subcutaneous, q8h levothyroxine 100 mcg tablet 100 mcg 1 tab(s), Oral, qDay miconazole topical 2% Powder 1 cristian, Topical, qHS pantoprazole 40 mg VIAL 40 mg, IV Push, qDayAC polyethylene glycol 3350 - UD packet 17 gram(s) 15 mL, Oral, qDay Continuous: (0) PRN: (13) albuterol - ipratropium 2.5 mg-0.5 mg/3 mL Inhal Jewell UD 3 mL, Inhalation, q2hRT benzocaine-menthol (Cepacol Sore Throat) 15 mg-3.6mg lozenge 1 lozenge(s), Oral, q2h benzonatate 100 mg Capsule 100 mg 1 cap(s), Oral, TID dextrose 50% Solution Disp syringe 50 mL 25 gram(s) 50 mL, IV Push, AsDirected lidocaine topical 2% viscous 100 mL 5 mL, Swish & Spit, achs loratadine 10 mg Tablet 10 mg 1 tab(s), Oral, qDay magnesium sulfate 4 gram(s)/100mL PMX 4 g 100 mL, IV Piggyback, AsDirected magnesium sulfate 50% (500mg/mL) 6 g 12 mL, IV Piggyback, AsDirected magnesium sulfate PMX 2 g 50 mL, IV Piggyback, AsDirected potassium chloride (PMX) 20 mEq/100 mL 20 mEq 100 mL, IV Piggyback, AsDirected potassium chloride 20 mEq ER tablet 20 mEq 1 tab(s), Oral, AsDirected potassium chloride 20 mEq ER tablet 40 mEq 2 tab(s), Oral, AsDirected potassium chloride 20 mEq ER tablet 40 mEq 2 tab(s), Oral, AsDirected Lab Results 05/20 12:25 Glucose Level: 101 Sodium Level: 142 Potassium Level: 4.2 BUN: 23.0 H Creatinine Lvl (s): 0.58 05/20 04:32 WBC: 10.1 Hgb: 9.8 L Hct: 29.8 L Platelet: 192 Neutrophil %: 70.9 Glucose Level: 131 H Sodium Level: 147 H Potassium Level: 3.9 BUN: 24.0 H Creatinine Lvl (s): 0.64 05/19 04:41 WBC: 12.6 H Hgb: 10.2 L Hct: 31.9 L Platelet: 214 Neutrophil %: 78.1 H Glucose Level: 107 Sodium Level: 145 Potassium Level: 3.7 BUN: 23.0 H Creatinine Lvl (s): 0.58 EKG No qualifying data available. 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 Initial rhythm was PEA and 2 rounds of CPR completed prior to ROSC without any medication. Intubated. Transferred to [place] [facility]. Upon admissionto MICU, CXR showed pulmonary congestion BNP greater than 8000. Diuretics were started patient responded to diuresis. Extubated on 05/14. Transferred to the floor on 05/16. Positive test for mycoplasma, IgM ceftriaxone and erythromycin added. Echo 05/14 showed EF 60 to 65% with diastolic dysfunction and RVSP 78. Increasing shortness of breath 05/18, patient placed on BiPAP and transferred to CCU. Initial ABG showed significant respiratory acidosis. IV Bumex started and central access placed per critical care with ABGs improving on recheck. Acute HFpEF exacerbation with concern for cor pulmonale in the setting of severe pulm HTN WHO Gr 3 - Discussed with primary team. obtain CTA chest to RO PE - As OP, can plan for RHC to assess whether patient would benefit from PAH targeted therapy but suspect that patient patient;s pulmonary hypertension is related to OHS - Autoimmune panel pending - RAP 8mmHg. B lines present. IVC dilated but collapsing >50%, DC bumex drip. - ABG pending. Can likely remove central line and arterial line but will defer to primary team - HGB trending down from 11.4 to 9.8 without overt sign of bleeding. May be iatrogenic from blood draws. Will continue to monitor. Iron studies pending Digitally Signed by FILOMENA LOUIS MD on 05/20/2024 04:17 PM Digitally Signed by FILOMENA LOUIS MD on 05/20/2024 04:18 PM [facility] [id number] Telephone encounter Note* Telephone Encounter - Eulalia Laureano RN - 05/20/2024 12:30 PM EDT The patient has been identified by name and date of : Yes Caregiver verified no other encounters exist for this prescription request: Yes Caregiver confirmed with patient/requestor that no other refills are due, in the near future, with this provider at this time: Yes The last office visit in the department: 05/10/2024 Does the patient have a future office visit with this provider/department: 2024 Requested Prescriptions Pending Prescriptions Disp Refills bowholf-svcxyhlem-zporsxa D3 (OYSTER SHELL CALCIUM-VITAMIN D) 500 mg-5 mcg (200 unit) per tablet 62tablet 11 Sig: Take 1 tablet by mouth two times a day with meals. Eulalia Laureano RN May 20, 2024 12:31 PM [facility]03-13-2025 Miscellaneous Notes* Telephone Encounter - Eulalia Laureano RN - 05/20/2024 12:30 PM EDT The patient has been identified by name and date of : Yes Caregiver verified no other encounters exist for this prescription request: Yes Caregiver confirmed with patient/requestor that no other refills are due, in the near future, with this provider at this time: Yes The last office visit in the department: 05/10/2024 Does the patient have a future office visit with this provider/department: 2024 Requested Prescriptions Pending Prescriptions Disp Refills bzdvwfo-yzxzloqid-jktgvaq D3 (OYSTER SHELL CALCIUM-VITAMIN D) 500 mg-5 mcg (200 unit) per tablet 62tablet 11 Sig: Take 1 tablet by mouth two times a day with meals. Eulalia Laureano RN May 20, 2024 12:31 PM [facility] in [facility] encounterSum[facility] Note [facility] Cardiac Critical Cardiac Progress Note Date: 05/20/2024 09:17:23 Patient Name: SIA ABDUL : 1980 ICU Admit Date: 05/18/2024 Intubation Date: N/A Reason for Consult: Hypoxic respiratory failure HPI: Sia Abdul is a 43 year old female with PMH of HFpEF, Prader-Willi, and intellectual disability who presented to [facility] ED on 05/12/24 after having increased shortness of breath then becoming unresponsive in the care with agonal or possible absent breathing. Initial rhythm was PEA and two rounds of CPR completed prior to ROSC without any medications. She was emergently intubated and noted to be difficult due to anterior airway and body habitus. She became hypoxic which resolved with multiple Duonebs. She has never been previously intubated. She was transferred to [place] [facility] for ongoing care. She typically receives her care at [facility] and was discharged on 05/05 after admission for acute heart failure. CXR on admission showed pulmonary congestion with a BNP was greater than 8000. She was started on diuretics, and cardiology was consulted. She responded well to diuretics andwas extubated on 05/14. She was transferred to the floor on 05/16. She remained on Ceftriaxone and azithromycin was added when she tested positive for mycoplasma IgM. A TTE on 05/14 showed EF 60-65% with diastolic dysfunction and RVSP of 78 demonstrating severe pHTN. Cardiology planned for ongoing diuresis with possible CCU admission and dobutamine infusion. On the evening of 05/17, the patient became more short of breath, was placed on BiPAP and transferred to CCU. Initial ABGs showed significant respiratory acidosis with CO2 greater than her normal baseline in the 50-60s. IV Bumex was started, andcentral access was placed. Her ABGs improved and she was transitioned back to oxygen. 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 Cardiology managing current diuresis with electrolyte replacement as needed. Heart failure following. Net negative now more than 3L. On home baseline oxygen requirements consisting ofdaytime oxygen and BiPAP with oxygen at night. Should be on BiPAP with naps as well. Tolerating diet. Need to be out of bed and working with therapy. Tolerating diet. Bowel regimen ordered. Remains on azithromycin for 7 days (started 05/16) and ceftriaxone was stopped before completion of 7 days (05/13-05/17). Unaware of barrier to resuming PT/OT. Will discuss with primary team. Cardiology currently planning for possible left and right heart cath. ICU to peripherally follow due to patient returning to her baseline. If any concerns or questions arise, please don t hesitate to contact us. Goals/Disposition: ICU Best Practices: VTE Prophylaxis: heparin subQ SUP: PPI LDA: RIJ, PIVs Nutrition: regular low sodium diet Therapy/mobilization: PT/OTGoals of Care Documented: Full Objective: Vitals Signs(Last 24 hrs)__ Last Charted Minimum Maximum Temp 36.8(MAY 19 23:15) 36.8(MAY 19 23:15) 37.0(MAY 19 13:33) Heart Rate 65(MAY 20 06:37) 65(MAY 20 06:37) 83(MAY 19 23:15) SBP 93(MAY 20 06:37) L 88(MAY 19 15:36) 104(MAY 19 19:00) DBP C 45(MAY 20 06:37) C 38(MAY 20 04:37) 82(MAY 19 14:38) Intake and Output (Last 24 hours) Intake Oral Intake 1360.00 Output Urinary Catheter Output: 3390.00 Total Summary Total Intake 1360.00 Total Output 3390.00 Fluid Balance -2030.00 PHYSICAL EXAM: GENERAL: Morbidly obese in no respiratory distress. Awake and alert. on home oxygen nasal cannula SKIN: warm and dry, no rashes noted HEENT: atraumatic normocephalic. conjunctiva normal, oral mucus membranes moist HEART: RRR, murmur appreciated LUNGS: clear to auscultation bilaterally anteriorly with decreasesd breath sounds in lower perez due to body habitus ABDOMEN: soft,, non tender,, bowel sounds diminished GENITOURINARY: External cathter present. Draining yellow urine. MUSCULOSKELETAL: Spontaneously moves all extremities x 4. VASCULAR: Bilateral pedal and radial pulses are palpable +2 and symmetric. Difficult to assess edema but skin continues to appear more wrinkled. Labs: Event Name Event Result Date/Time WBC 10.1 10^3/mcL 05/20/24 04:32:00 Hgb 9.8 G/dL Low 05/20/24 04:32:00 Hct 29.8 % Low 05/20/24 04:32:00 Platelet 192 10^3/mcL 05/20/24 04:32:00 Glucose Level 131 mg/dL High 05/20/24 04:32:00 Sodium Level 147 mEq/L High 05/20/24 04:32:00 Potassium Level 3.9 mEq/L 05/20/24 04:32:00 Chloride 98 mEq/L 05/20/24 04:32:00 CO2 >40 Critical 05/20/24 04:32:00 BUN 24 mg/dL High 05/20/24 04:32:00 Creatinine Lvl (s) 0.64 mg/dL 05/20/24 04:32:00 Magnesium Lvl 2.1 mg/dL 05/20/24 04:32:00 Imaging: XR Chest 1 View Result Date: May 19, 2024 Verified By: ESTHER CABALLERO MD CLINICAL STATEMENT: IMPRESSION: Right upper lobe consolidation, slightly worse compared to the prior study.This may represent worsening pneumonia, and follow-up is recommended. Echocardiogram 05/14/2024 Summary: 1. Left ventricle: The cavity size is normal. Wall thickness is normal. Systolic function is normal. The estimated ejection fraction is 60-65%. Wall motion is normal; there are no regional wall motion abnormalities. Diastolic dysfunction present but unable to assess severity. 2. Ventricular septum: Septal motion is paradoxical. 3. Right ventricle: The cavity size is increased. Wall thickness is normal. Systolic function is moderately reduced by visual assessment. But normal by TAPSE. Systolic pressure is severely increased. The RV systolic pressure by Doppler is 78 mm Hg. 4. Right atrium: The atrium is moderately dilated. The estimated right atrial pressure is 15 mm Hg. 5. Hepatic vein: Doppler signals show prominent flow reversal end diastole. Recommendations: 1. RV dilation, visually reduced RV function, severe PHT.2. Tall A wave in hepatic flow suggestive RHF. Pertinent Reviewed: Allergies, Medications, Labs, Imaging, and Physician and Nursing Notes. Critical Care services I provided [id number] minutes. The time involved in the performance of this care was exclusive of separately billable procedures, teaching time, and treating other patients. The time was spent personally by myself for the following activities: examination of the patient, ordering and/or performing treatment, reviewing the laboratory and radiographic studies and if applicable,ventilator management and blood gas interpretation. Morena Felipe MD Cardiac Critical Care Digitally Signed by MORENA FELIPE MD on 05/20/2024 09:53 AM [facility] [id number] Note* Exam Date Time Procedure Performing Provider Status 05/19/24 2:40 PM XR Chest 1 View ESTHER CABALLERO MD; Aut h (Verified) [id number] ORIGINAL EXAMINATION: ONE XRAY VIEW OF THE CHEST 05/19/2024 2:40 pm COMPARISON: May 18, 2024 HISTORY: ORDERING SYSTEM PROVIDED HISTORY: Reason for Exam: CHF FINDINGS: CVC terminates at the cavoatrial junction. No pneumothorax seen. Mild cardiomegaly is evident without vascular congestion. There is consolidation of the right upper lobe, slightly worse compared to the prior study. No other definite infiltrate or pleural fluid seen. IMPRESSION: Right upper lobe consolidation, slightly worse compared to the prior study. This may represent worsening pneumonia, and follow-up is recommended. Interpreted by: Esther Caballero MD Preliminary Report By: Esther Caballero MD Electronically signed By Esther Caballero MD Dictated Date: 05/19/2024 2:44:37 PM Prelim Date: 05/19/2024 2:45:28 PM Sign Date: 05/19/2024 2:45:28 PM Ordering Provider: BREE FABIAN [facility] [id number] Note [facility] Cardiac Critical Cardiac Progress Note Date: 05/19/2024 10:14:21 Patient Name: SIA ABDUL : 1980 ICU Admit Date: 05/18/2024 Intubation Date: N/A Reason for Consult: Hypoxic respiratory failure HPI: Sia Abdul is a 43 year old female with PMH of HFpEF, Prader-Willi, and intellectual disability who presented to [facility] ED on 05/12/24 after having increased shortness of breath then becoming unresponsive in the care with agonal or possible absent breathing. Initial rhythm was PEA and two rounds of CPR completed prior to ROSC without any medications. She was emergently intubated and noted to be difficult due to anterior airway and body habitus. She became hypoxic which resolved with multiple Duonebs. She has never been previously intubated. She was transferred to [place] [facility] for ongoing care. She typically receives her care at [facility] and was discharged on 05/05 after admission for acute heart failure. CXR on admission showed pulmonary congestion with a BNP was greater than 8000. She was started on diuretics, and cardiology was consulted. She responded well to diuretics andwas extubated on 05/14. She was transferred to the floor on 05/16. She remained on Ceftriaxone and azithromycin was added when she tested positive for mycoplasma IgM. A TTE on 05/14 showed EF 60-65% with diastolic dysfunction and RVSP of 78 demonstrating severe pHTN. Cardiology planned for ongoing diuresis with possible CCU admission and dobutamine infusion. On the evening of 05/17, the patient became more short of breath, was placed on BiPAP and transferred to CCU. Initial ABGs showed significant respiratory acidosis with CO2 greater than her normal baseline in the 50-60s. IV Bumex was started, andcentral access was placed. Her ABGs improved and she was transitioned back to oxygen. 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 Cardiology managing current diuresis. Needs electrolytes (K and Mag) monitored withdiuresis and replacement as needed. Heart failure now consulted. Urology consulted for possible beckwith place with difficult anatomy. Placed on BiPAP overnight with transition to 5L nasal cannula oxygen this morning. Appears back to baseline. She needs BiPAP nightly and with daytime naps. Tolerating PO. Would recommend bowel regimen. Continued completing 7 day course of antibiotics. PT/OT and OOBTC. Goals/Disposition: ICU Best Practices: VTE Prophylaxis: heparin subQ SUP: PPI LDA: RIJ, PIVs Nutrition: regular low sodium diet Therapy/mobilization: PT/OTGoals of Care Documented: Full Objective: Vitals Signs(Last 24 hrs)__ Last Charted Minimum Maximum Temp 36.7(MAY 19 09:36) 36.3(MAY 18 10:23) 36.3(MAY 18 10:23) Heart Rate 76(MAY 19 09:36) L 53(MAY 18 12:51) 76(MAY 19 09:36) SBP 95(MAY 19 09:36) L 80(MAY 18 13:56) 110(MAY 18 19:19) DBP C 43(MAY 19 09:36) C 31(MAY 18 22:58) 73(MAY 18 21:28) Intake and Output (Last 24 hours) Intake Oral Intake 1330.00 Output Urinary Catheter Output: 2800.00 Total Summary Total Intake 1330.00 Total Output 2800.00 Fluid Balance -1470.00 PHYSICAL EXAM: GENERAL: Morbidly obesein no respiratory distress. A&Ox4. SKIN: warm and dry, no rashes noted. Scattered ecchymoses throughout body HEENT: atraumatic normocephalic. conjunctiva normal, oral mucus membranes moist HEART: RRR LUNGS: clear to auscultation bilaterally ABDOMEN: soft,, non tender,, bowel sounds normal GENITOURINARY: External beckwith present. Draining yellow urine. MUSCULOSKELETAL: Spontaneously moves all extremities x 4. VASCULAR: Bilateral pedal and radial pulses are palpable +2 and symmetric. _ edema noted but dificult to appreciate with body habitus. Skin appears less edematous with more wrinkles. Labs: Event Name Event Result Date/Time WBC 12.6 10^3/mcL High 05/19/24 04:41:00 Hgb 10.2 G/dL Low 05/19/24 04:41:00 Hct 31.9 % Low 05/19/24 04:41:00 Platelet 214 10^3/mcL 05/19/24 04:41:00 Glucose Level 107 mg/dL 05/19/24 04:41:00 Sodium Level 145 mEq/L 05/19/24 04:41:00 Potassium Level 3.7 mEq/L 05/19/24 04:41:00 Chloride 95 mEq/L Low 05/19/24 04:41:00 CO2 >40 Critical 05/19/24 04:41:00 BUN 23 mg/dL High 05/19/24 04:41:00 Creatinine Lvl (s) 0.58 mg/dL 05/19/24 04:41:00 Magnesium Lvl 1.8 mg/dL 05/19/24 04:41:00 Imaging: XR Chest 1 View Result Date: May 18, 2024 Verified By: ADENIKE FERNANDES, QUAN Campbell CLINICAL STATEMENT: IMPRESSION: Interval right internal jugular central venous catheter placement with itstip overlyingthe proximal right atrium. No postprocedure pneumothorax. No significant change in bilateral mixed airspace and interstitial opacitiesand small bilateral pleural effusions. I have personally reviewedthe images of this examination, and agree with theresident's findings and interpretation. Echocardiogram 05/14/2024 Summary: 1. Left ventricle: The cavity size is normal. Wall thickness is normal. Systolic function is normal. The estimated ejection fraction is 60-65%. Wall motion is normal; there are no regional wall motion abnormalities. Diastolic dysfunction present but unable to assess severity. 2. Ventricular septum: Septal motion is paradoxical. 3. Right ventricle: The cavity size is increased. Wall thickness is normal. Systolic function is moderately reduced by visual assessment. But normal by TAPSE. Systolic pressure is severely increased. The RV systolic pressure by Doppler is 78 mm Hg. 4. Right atrium: The atrium is moderately dilated. The estimated right atrial pressure is 15 mm Hg. 5. Hepatic vein: Doppler signals show prominent flow reversal end diastole. Recommendations: 1. RV dilation, visually reduced RV function, severe PHT.2. Tall A wave in hepatic flow suggestive RHF. Pertinent Reviewed: Allergies, Medications, Labs, Imaging, and Physician and Nursing Notes. Critical Care services I provided [id number] minutes. The time involved in the performance of this care was exclusive of separately billable procedures, teaching time, and treating other patients. The time was spent personally by myself for the following activities: examination of the patient, ordering and/or performing treatment, reviewing the laboratory and radiographic studies and if applicable,ventilator management and blood gas interpretation. Patient treatment plan of care discussed with bedside RN and respiratory therapy. Morena Felipe MD Cardiac Critical Care Digitally Signed by MORENA FELIPE MD on 05/19/2024 10:40 AM [facility] [id number] Heart failure Consult note Date of Service 05/18/2024 Reason for Consultation Pulmonary hypertension History of Present Illness 43-year-old female past medical history HFpEF, Prader-Willi/intellectual disability presented to [facility] ED 05/12/2024 with increased shortness of breath. Became unresponsive with agonal or absent breathing. Initial rhythm was PEA and 2 rounds of CPR completed prior to ROSC without any medication. Emergently intubated, noted to be difficult intubation due to anterior airway and body habitus. Became hypoxic resolved with DuoNebs. Transferred to [place] [facility]. Of note, discharged from [facility] on 05/05 for acute heart failure admission. Upon admission to MICU, CXR showed pulmonary congestion BNP greater than 8000. Diuretics were started patient responded to diuresis. Extubated on 05/14. Transferred to the floor on 05/16. Positive test for mycoplasma, IgM ceftriaxone and erythromycin added.Echo 05/14 showed EF 60 to 65% with diastolic dysfunction and RVSP 78. Increasing shortness of breath05/18, patient placed on BiPAP and transferred to CCU. Initial ABG showed significant respiratory aci dosis. IV Bumex started and central access placed per critical care with ABGs improving on recheck. Review of Systems Completed ROS is within normal limits except for items HPI above. Physical Exam Vitals and Measurements T: 37.0 C (Axillary) TMIN: 36.5 C (Axillary) TMAX: 37.1 C (Axillary) HR: 63 (Monitored) RR: 18 BP: 97/57 BP: 111/73(Line) SpO2: 99% Weight Dosing Weight: 136.1 kg (05/13/24) Alert and oriented x 3 no acute distress No significant JVD Neck exam: No obvious masses Chest: Clear to auscultation bilaterally Heart: S1-S2 regular no significant murmurs rubs or gallops. Abdomen: Soft nontender nondistended bowel sounds positive Extremities: No significant edema noted Skin: No significant rashes noted Joints: No obvious swelling noted Neurological: Grossly intact Lab Results 05/18 05:37 WBC: 13.9 H Hgb: 11.1 L Hct: 33.5 L Platelet: 217 Neutrophil %: 81.7 H Glucose Level: 98 Sodium Level: 144 Potassium Level: 3.5 BUN: 20.0 Creatinine Lvl (s): 0.38 L 05/17 17:09 Glucose Level: 95 Sodium Level: 139 Potassium Level: 4.7 BUN: 23.0 H Creatinine Lvl (s): 0.65 05/17 06:29 WBC: 16.1 H Hgb: 11.4 L Hct: 36.0 Platelet: 203 Neutrophil %: 78.3 H Glucose Level: 118 H Sodium Level: 142 Potassium Level: 4.2 BUN: 20.0 Creatinine Lvl (s): 0.52 Assessment/Plan Acute exacerbation of HFpEF Severe pulmonary hypertension secondary to underlying OHS/DACIA nocturnal desaturation DACIA - compliant with CPAP (per pt) Acute on chronic respiratory failure in setting of chronic hypercapnic respiratory failure Cor pulmonale Prader-Willi syndrome, obesity and intellectual disability Mycoplasma pneumonia [05/18] - O2 95.6 O2V 68.6 Hgb 11.1. CI 3.1 CO 6.82 calculated by Elio - Bumex drip at 1 mg/h - Urine output: 1.9 L Plan/ recommendations: - Likely pulmonary hypertension related to DACIA. - Continue with diuresis at this time. Continue to monitor I &Os and labs for stable electrolytes and renal function Patient seen and case reviewed by Dr. Mason. This is a split/ shared visit. See addendum for further changes. Problem List/Past Medical History Historical CHF (congestive heart failure) Prader-Willi syndrome Procedure/Surgical History No qualifying data available. Medications Inpatient aspirin 81 mg oral delayed release tablet, 81 mg= 1 tab(s), Oral, Daily atorvastatin, 20 mg= 1 tab(s), Oral, Daily azithromycin IV bumetanide for IV 10 mg [1 mg/hr] + Sodium Chloride 0.9% intravenous solution 60 mL Dextrose 50% IV Push, 25 gram(s)= 50 mL, IV Push, AsDirected, PRN DuoNeb, 3 mL, Inhalation, q2hRT, PRN heparin 5000 units/mL injection, 5000 unit(s)= 1 mL, Subcutaneous, q8h levothyroxine, 100 mcg= 1 tab(s), Oral, qDay miconazole 2% topical powder, 1 cristian, Topical, qHS Protonix IV Push, 40 mg, IV Push, qDayAC Home ammonium lactate 12% topical cream, 1 cristian, Topical, qHS aspirin 81 mg oral delayed release tablet, 81 mg= 1 tab(s), Oral, Daily Breo Ellipta 100 mcg-25 mcg/inh inhalation powder, 1 puff(s), Inhalation, Daily calcium carbonate 500 mg (200 mg elemental calcium) oral tablet, chewable, 500 mg= 1 tab(s), Chewed, BID carvedilol 3.125 mg oral tablet, 3.125 mg= 1 tab(s), Oral, BIDM cephalexin 500 mg oral tablet, 500 mg= 1 tab(s), PO, QID clotrimazole 1% topical cream, 1 cristian, Topical, BID Dulera 100 mcg-5 mcg/inh Metered Dose Inhaler, 2 puff(s), Inhalation, BID EPINEPHrine 0.3 mg injectable kit, 0.3 mg= 1 EA, Intramuscular, AsDirected, PRN fluticasone proprionate NASAL 50 mcg/ spray, 50 mcg= 1 spray(s), Nostril, each, qAM levothyroxine 100 mcg (0.1 mg) oral tablet, 100 mcg= 1 tab(s), Oral, qDay norethindrone 0.35 mg oral tablet, 0.35 mg= 1 tab(s), Oral, qDay nystatin 100,000 units/g topical powder, 1 cristian, Topical, qHS omega-3 polyunsaturated fatty acids ethyl esters 1000 mg oral capsule, 2000 mg= 2 cap(s), Oral, qDay Therapeutic Multiple Vitamins with Minerals, Zinc and Elderberry oral tablet, chewable, 1 tab, Chewed, qDay torsemide 20 mg oral tablet, 20 mg= 1 tab(s), Oral, BID Allergies Bee Stings Dilantin misc non-codified allergy Immunizations No qualifying data available. Digitally Signed by BLANCO BRAGA PA-C on 05/18/2024 04:42 PM [facility] [id number] Heart failure Consult note Date of Service 05/18/2024 Reason for Consultation Pulmonary hypertension History of Present Illness 43-year-old female past medical history HFpEF, Prader-Willi/intellectual disability presented to [facility] ED 05/12/2024 with increased shortness of breath. Became unresponsive with agonal or absent breathing. Initial rhythm was PEA and 2 rounds of CPR completed prior to ROSC without any medication. Emergently intubated, noted to be difficult intubation due to anterior airway and body habitus. Became hypoxic resolved with DuoNebs. Transferred to [place] [facility]. Of note, discharged from [facility] on 05/05 for acute heart failure admission. Upon admission to MICU, CXR showed pulmonary congestion BNP greater than 8000. Diuretics were started patient responded to diuresis. Extubated on 05/14. Transferred to the floor on 05/16. Positive test for mycoplasma, IgM ceftriaxone and erythromycin added.Echo 05/14 showed EF 60 to 65% with diastolic dysfunction and RVSP 78. Increasing shortness of breath05/18, patient placed on BiPAP and transferred to CCU. Initial ABG showed significant respiratory aci dosis. IV Bumex started and central access placed per critical care with ABGs improving on recheck. Review of Systems Completed ROS is within normal limits except for items HPI above. Physical Exam Vitals and Measurements T: 37.0 C (Axillary) TMIN: 36.5 C (Axillary) TMAX: 37.1 C (Axillary) HR: 63 (Monitored) RR: 18 BP: 97/57 BP: 111/73(Line) SpO2: 99% Weight Dosing Weight: 136.1 kg (05/13/24) Alert and oriented x 3 no acute distress No significant JVD Neck exam: No obvious masses Chest: Clear to auscultation bilaterally Heart: S1-S2 regular no significant murmurs rubs or gallops. Abdomen: Soft nontender nondistended bowel sounds positive Extremities: No significant edema noted Skin: No significant rashes noted Joints: No obvious swelling noted Neurological: Grossly intact Lab Results 05/18 05:37 WBC: 13.9 H Hgb: 11.1 L Hct: 33.5 L Platelet: 217 Neutrophil %: 81.7 H Glucose Level: 98 Sodium Level: 144 Potassium Level: 3.5 BUN: 20.0 Creatinine Lvl (s): 0.38 L 05/17 17:09 Glucose Level: 95 Sodium Level: 139 Potassium Level: 4.7 BUN: 23.0 H Creatinine Lvl (s): 0.65 05/17 06:29 WBC: 16.1 H Hgb: 11.4 L Hct: 36.0 Platelet: 203 Neutrophil %: 78.3 H Glucose Level: 118 H Sodium Level: 142 Potassium Level: 4.2 BUN: 20.0 Creatinine Lvl (s): 0.52 Assessment/Plan Acute exacerbation of HFpEF Severe pulmonary hypertension secondary to underlying OHS/DACIA nocturnal desaturation DACIA - compliant with CPAP (per pt) Acute on chronic respiratory failure in setting of chronic hypercapnic respiratory failure Cor pulmonale Prader-Willi syndrome, obesity and intellectual disability Mycoplasma pneumonia [05/18] - O2 95.6 O2V 68.6 Hgb 11.1. CI 3.1 CO 6.82 calculated by Elio - Bumex drip at 1 mg/h - Urine output: 1.9 L Plan/ recommendations: - Likely pulmonary hypertension related to DACIA. - Continue with diuresis at this time. Continue to monitor I &Os and labs for stable electrolytes and renal function Patient seen and case reviewed by Dr. Mason. This is a split/ shared visit. See addendum for further changes. Problem List/Past Medical History Historical CHF (congestive heart failure) Prader-Willi syndrome Procedure/Surgical History No qualifying data available. Medications Inpatient aspirin 81 mg oral delayed release tablet, 81 mg= 1 tab(s), Oral, Daily atorvastatin, 20 mg= 1 tab(s), Oral, Daily azithromycin IV bumetanide for IV 10 mg [1 mg/hr] + Sodium Chloride 0.9% intravenous solution 60 mL Dextrose 50% IV Push, 25 gram(s)= 50 mL, IV Push, AsDirected, PRN DuoNeb, 3 mL, Inhalation, q2hRT, PRN heparin 5000 units/mL injection, 5000 unit(s)= 1 mL, Subcutaneous, q8h levothyroxine, 100 mcg= 1 tab(s), Oral, qDay miconazole 2% topical powder, 1 cristian, Topical, qHS Protonix IV Push, 40 mg, IV Push, qDayAC Home ammonium lactate 12% topical cream, 1 cristian, Topical, qHS aspirin 81 mg oral delayed release tablet, 81 mg= 1 tab(s), Oral, Daily Breo Ellipta 100 mcg-25 mcg/inh inhalation powder, 1 puff(s), Inhalation, Daily calcium carbonate 500 mg (200 mg elemental calcium) oral tablet, chewable, 500 mg= 1 tab(s), Chewed, BID carvedilol 3.125 mg oral tablet, 3.125 mg= 1 tab(s), Oral, BIDM cephalexin 500 mg oral tablet, 500 mg= 1 tab(s), PO, QID clotrimazole 1% topical cream, 1 cristian, Topical, BID Dulera 100 mcg-5 mcg/inh Metered Dose Inhaler, 2 puff(s), Inhalation, BID EPINEPHrine 0.3 mg injectable kit, 0.3 mg= 1 EA, Intramuscular, AsDirected, PRN fluticasone proprionate NASAL 50 mcg/ spray, 50 mcg= 1 spray(s), Nostril, each, qAM levothyroxine 100 mcg (0.1 mg) oral tablet, 100 mcg= 1 tab(s), Oral, qDay norethindrone 0.35 mg oral tablet, 0.35 mg= 1 tab(s), Oral, qDay nystatin 100,000 units/g topical powder, 1 cristian, Topical, qHS omega-3 polyunsaturated fatty acids ethyl esters 1000 mg oral capsule, 2000 mg= 2 cap(s), Oral, qDay Therapeutic Multiple Vitamins with Minerals, Zinc and Elderberry oral tablet, chewable, 1 tab, Chewed, qDay torsemide 20 mg oral tablet, 20 mg= 1 tab(s), Oral, BID Allergies Bee Stings Dilantin misc non-codified allergy Immunizations No qualifying data available. Digitally Signed by BLANCO BRAGA PA-C on 05/18/2024 04:42 PM [facility] [id number] Note. MICRO - Microbiology PROCEDURE: Blood Culture (bacterial) [*1] SOURCE: Blood BODY SITE: COLLECTED DATE/TIME: 05/12/2024 22:03 EST RECEIVED DATE/TIME: 05/13/2024 14:57 EST START DATE/TIME: 05/13/2024 14:57 EST FREE TEXT SOURCE: FINAL REPORTS Final Report [] Verified Date/Time/Personnel: 05/18/2024 14:59 EDT Blood Culture: No Growth at 5 days. PRELIMINARY REPORTS Preliminary Report [] Verified Date/Time/Personnel: 05/13/2024 15:59 EST Culture has been received in lab and is no growth to date. Routine cultures are held for 5 days. Performing Locations *1: This test was performed at: [address], [address] [place], [place] [id number] Note. MICRO - Microbiology PROCEDURE: Blood Culture (bacterial) [*1] SOURCE: Blood BODY SITE: COLLECTED DATE/TIME: 05/12/2024 22:03 EST RECEIVED DATE/TIME: 05/13/2024 14:57 EST START DATE/TIME: 05/13/2024 14:57 EST FREE TEXT SOURCE: FINAL REPORTS Final Report [] Verified Date/Time/Personnel: 05/18/2024 14:59 EDT Blood Culture: No Growth at 5 days. PRELIMINARY REPORTS Preliminary Report [] Verified Date/Time/Personnel: 05/13/2024 15:59 EST Culture has been received in lab and is no growth to date. Routine cultures are held for 5 days. Performing Locations *1: This test was performed at: [address], [address] [place], [place] [id number] Urology Consult note Date of Service 05/18/2024 History of Present Illness 43 year old female with PMH significant for heart failure, Prader-Willi, intellectual disability; she is admitted to CCU for multiple cardiac and respiratory issues. Currently on BiPap and on Bumex drip. Urology consulted due to difficult Beckwith placement. She was admitted to the MICU previously and per documentation it seems she did have a Beckwith in place when there, this was removed on 05/15. Patient seems to be voiding well at this time with external catheter. Review of Systems complete ROS performed, pertinent positives and negatives are noted in HPI Physical Exam Vitals and Measurements T: 36.3 C (Axillary) TMIN: 36.3 C (Axillary) TMAX: 37.1 C (Axillary) HR: 59 (Monitored) RR: 18 RR: 16 BP: 89/62 BP: 111/73(Line) SpO2: 100% Weight Dosing Weight: 136.1 kg (05/13/24) GENERAL:Appears to be in no acute distress. SKIN: warm and dry. No rashes noted. HEENT: mucous membranes moist. LUNGS: no use of accessory muscles, no wheezes or cough. ABDOMEN: Soft, non distended, non tender. . GENITOURINARY: _ Deferred MUSCULOSKELETAL: Moves all extremities x 4. NEUROLOGICAL: A&O x3. No focal deficits. Lab Results 05/18 05:37 WBC: 13.9 H Hgb: 11.1 L Hct: 33.5 L Platelet: 217 Neutrophil %: 81.7 H Glucose Level: 98 Sodium Level: 144 Potassium Level: 3.5 BUN: 20.0 Creatinine Lvl (s): 0.38 L 05/17 17:09 Glucose Level: 95 Sodium Level: 139 Potassium Level: 4.7 BUN: 23.0 H Creatinine Lvl (s): 0.65 05/17 06:29 WBC: 16.1 H Hgb: 11.4 L Hct: 36.0 Platelet: 203 Neutrophil %: 78.3 H Glucose Level: 118 H Sodium Level: 142 Potassium Level: 4.2 BUN: 20.0 Creatinine Lvl (s): 0.52 Assessment/Plan 1. Difficulty Beckwith - it seems patient is not in retention right now and is having good outputs with external catheter - I did attempt Beckwith placement this AM but due to body habitus and prolapse this was difficult, patient very resistant and crying asking me to stop - could check a bladder scan to make sure she is emptying, however would refrain from replacing Beckwith at this time if at all possible as it does not seem to be absolutely necessary - if cardiology team feels this is absolutely necessary from an I&O standpoint I have asked thebedside nurse to notify our office and I will ask for the assistance of the supervisor telephone clerks doctor Problem List/Past Medical History Historical CHF (congestive heart failure) Prader-Willi syndrome Procedure/Surgical History No qualifying data available. Medications Inpatient aspirin 81 mg oral delayed release tablet, 81 mg= 1 tab(s), Oral, Daily atorvastatin, 20 mg= 1 tab(s), Oral, Daily azithromycin IV bumetanide for IV 10 mg [1 mg/hr] + Sodium Chloride 0.9% intravenous solution 60 mL Dextrose 50% IV Push, 25 gram(s)= 50 mL, IV Push, AsDirected, PRN DuoNeb, 3 mL, Inhalation, q2hRT, PRN heparin 5000 units/mL injection, 5000 unit(s)= 1 mL, Subcutaneous, q8h levothyroxine, 100 mcg= 1 tab(s), Oral, qDay miconazole 2% topical powder, 1 cristian, Topical, qHS Protonix IV Push, 40 mg, IV Push, qDayAC Home ammonium lactate 12% topical cream, 1 cristian, Topical, qHS aspirin 81 mg oral delayed release tablet, 81 mg= 1 tab(s), Oral, Daily Breo Ellipta 100 mcg-25 mcg/inh inhalation powder, 1 puff(s), Inhalation, Daily calcium carbonate 500 mg (200 mg elemental calcium) oral tablet, chewable, 500 mg= 1 tab(s), Chewed, BID carvedilol 3.125 mg oral tablet, 3.125 mg= 1 tab(s), Oral, BIDM clotrimazole 1% topical cream, 1 cristian, Topical, BID Dulera 100 mcg-5 mcg/inh Metered Dose Inhaler, 2 puff(s), Inhalation, BID EPINEPHrine 0.3 mg injectable kit, 0.3 mg= 1 EA, Intramuscular, AsDirected, PRN fluticasone proprionate NASAL 50 mcg/ spray, 50 mcg= 1 spray(s), Nostril, each, qAM levothyroxine 100 mcg (0.1 mg) oral tablet, 100 mcg= 1 tab(s), Oral, qDay norethindrone 0.35 mg oral tablet, 0.35 mg= 1 tab(s), Oral, qDay nystatin 100,000 units/g topical powder, 1 cristian, Topical, qHS omega-3 polyunsaturated fatty acids ethyl esters 1000 mg oral capsule, 2000 mg= 2 cap(s), Oral, qDay Therapeutic Multiple Vitamins with Minerals, Zinc and Elderberry oral tablet, chewable, 1 tab, Chewed, qDay torsemide 20 mg oral tablet, 20 mg= 1 tab(s), Oral, BID Allergies Bee Stings Dilantin misc non-codified allergy Immunizations No qualifying data available. Digitally Signed by RANI MALHOTRA on 05/18/2024 12:45 PM [facility] [id number] Heart failure Consult note Date of Service 05/18/2024 Reason for Consultation Pulmonary hypertension History of Present Illness 43-year-old female past medical history HFpEF, Prader-Willi/intellectual disability presented to [facility] ED 05/12/2024 with increased shortness of breath. Became unresponsive with agonal or absent breathing. Initial rhythm was PEA and 2 rounds of CPR completed prior to ROSC without any medication. Emergently intubated, noted to be difficult intubation due to anterior airway and body habitus. Became hypoxic resolved with DuoNebs. Transferred to [place] [facility]. Of note, discharged from [facility] on 05/05 for acute heart failure admission. Upon admission to MICU, CXR showed pulmonary congestion BNP greater than 8000. Diuretics were started patient responded to diuresis. Extubated on 05/14. Transferred to the floor on 05/16. Positive test for mycoplasma, IgM ceftriaxone and erythromycin added.Echo 05/14 showed EF 60 to 65% with diastolic dysfunction and RVSP 78. Increasing shortness of breath05/18, patient placed on BiPAP and transferred to CCU. Initial ABG showed significant respiratory aci dosis. IV Bumex started and central access placed per critical care with ABGs improving on recheck. Review of Systems Completed ROS is within normal limits except for items HPI above. Physical Exam Vitals and Measurements T: 37.0 C (Axillary) TMIN: 36.5 C (Axillary) TMAX: 37.1 C (Axillary) HR: 63 (Monitored) RR: 18 BP: 97/57 BP: 111/73(Line) SpO2: 99% Weight Dosing Weight: 136.1 kg (05/13/24) Alert and oriented x 3 no acute distress No significant JVD Neck exam: No obvious masses Chest: Clear to auscultation bilaterally Heart: S1-S2 regular no significant murmurs rubs or gallops. Abdomen: Soft nontender nondistended bowel sounds positive Extremities: No significant edema noted Skin: No significant rashes noted Joints: No obvious swelling noted Neurological: Grossly intact Lab Results 05/18 05:37 WBC: 13.9 H Hgb: 11.1 L Hct: 33.5 L Platelet: 217 Neutrophil %: 81.7 H Glucose Level: 98 Sodium Level: 144 Potassium Level: 3.5 BUN: 20.0 Creatinine Lvl (s): 0.38 L 05/17 17:09 Glucose Level: 95 Sodium Level: 139 Potassium Level: 4.7 BUN: 23.0 H Creatinine Lvl (s): 0.65 05/17 06:29 WBC: 16.1 H Hgb: 11.4 L Hct: 36.0 Platelet: 203 Neutrophil %: 78.3 H Glucose Level: 118 H Sodium Level: 142 Potassium Level: 4.2 BUN: 20.0 Creatinine Lvl (s): 0.52 Assessment/Plan Acute exacerbation of HFpEF Severe pulmonary hypertension secondary to underlying OHS/DACIA nocturnal desaturation DACIA - compliant with CPAP (per pt) Acute on chronic respiratory failure in setting of chronic hypercapnic respiratory failure Cor pulmonale Prader-Willi syndrome, obesity and intellectual disability Mycoplasma pneumonia [05/18] - O2 95.6 O2V 68.6 Hgb 11.1. CI 3.1 CO 6.82 calculated by Elio - Bumex drip at 1 mg/h - Urine output: 1.9 L Plan/ recommendations: - Likely pulmonary hypertension related to DACIA. - Continue with diuresis at this time. Continue to monitor I &Os and labs for stable electrolytes and renal function Patient seen and case reviewed by Dr. Mason. This is a split/ shared visit. See addendum for further changes. Problem List/Past Medical History Historical CHF (congestive heart failure) Prader-Willi syndrome Procedure/Surgical History No qualifying data available. Medications Inpatient aspirin 81 mg oral delayed release tablet, 81 mg= 1 tab(s), Oral, Daily atorvastatin, 20 mg= 1 tab(s), Oral, Daily azithromycin IV bumetanide for IV 10 mg [1 mg/hr] + Sodium Chloride 0.9% intravenous solution 60 mL Dextrose 50% IV Push, 25 gram(s)= 50 mL, IV Push, AsDirected, PRN DuoNeb, 3 mL, Inhalation, q2hRT, PRN heparin 5000 units/mL injection, 5000 unit(s)= 1 mL, Subcutaneous, q8h levothyroxine, 100 mcg= 1 tab(s), Oral, qDay miconazole 2% topical powder, 1 cristian, Topical, qHS Protonix IV Push, 40 mg, IV Push, qDayAC Home ammonium lactate 12% topical cream, 1 cristian, Topical, qHS aspirin 81 mg oral delayed release tablet, 81 mg= 1 tab(s), Oral, Daily Breo Ellipta 100 mcg-25 mcg/inh inhalation powder, 1 puff(s), Inhalation, Daily calcium carbonate 500 mg (200 mg elemental calcium) oral tablet, chewable, 500 mg= 1 tab(s), Chewed, BID carvedilol 3.125 mg oral tablet, 3.125 mg= 1 tab(s), Oral, BIDM cephalexin 500 mg oral tablet, 500 mg= 1 tab(s), PO, QID clotrimazole 1% topical cream, 1 cristian, Topical, BID Dulera 100 mcg-5 mcg/inh Metered Dose Inhaler, 2 puff(s), Inhalation, BID EPINEPHrine 0.3 mg injectable kit, 0.3 mg= 1 EA, Intramuscular, AsDirected, PRN fluticasone proprionate NASAL 50 mcg/ spray, 50 mcg= 1 spray(s), Nostril, each, qAM levothyroxine 100 mcg (0.1 mg) oral tablet, 100 mcg= 1 tab(s), Oral, qDay norethindrone 0.35 mg oral tablet, 0.35 mg= 1 tab(s), Oral, qDay nystatin 100,000 units/g topical powder, 1 cristian, Topical, qHS omega-3 polyunsaturated fatty acids ethyl esters 1000 mg oral capsule, 2000 mg= 2 cap(s), Oral, qDay Therapeutic Multiple Vitamins with Minerals, Zinc and Elderberry oral tablet, chewable, 1 tab, Chewed, qDay torsemide 20 mg oral tablet, 20 mg= 1 tab(s), Oral, BID Allergies Bee Stings Dilantin misc non-codified allergy Immunizations No qualifying data available. Digitally Signed by BLANCO BRAGA PA-C on 05/18/2024 04:42 PM [id number] Critical care medicine Consult note [facility] Cardiac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 supple. No masses or thyromegaly. Trachea midline. Respiratory: Respirations are non-labored. Symmetric chest wall expansion. Poor air movement bilaterallly. Cardiovascular: No lower extremity edema. Regular rate/rhythm. No murmurs/rubs/gallops appreciated. Abdomen: Non-distended, non-tender. MSK: No clubbing or cyanosis. ROM grossly intact. No obvious deformities. Neuro: Normal/non-dysarthric speech. Face symmetric. Sensation and CN 2-12 grossly normal. Skin: Warm and well perfused. No rashes or ulcers in visible skin. Lab Results No 36 Hour Lab Data Imaging Results and Diagnostics XR Chest 1 View Result Date: May 13, 2024 Verified By: QUAN JEONG MD CLINICAL STATEMENT: IMPRESSION: 1. Endotracheal tube and enteric tube are in satisfactory position.2. Stable bilateral lung infiltrates. XR Enteric Tube Placement Result Date: May 13, 2024 Verified By: QUAN JEONG MD CLINICAL STATEMENT: IMPRESSION: 1. Endotracheal tube tip is at the level of the fadumo and should beretracted 4 cm.2. Orogastric tube is in satisfactory position.3. Worsening bilateral lung infiltrates. XR Chest 1 View Result Date: May 13, 2024 Verified By: QUAN JEONG MD CLINICAL STATEMENT: IMPRESSION: 1. Endotracheal tube tip is at the level of the fadumo and should beretracted 4 cm.2. Orogastric tube is in satisfactory position.3. Worsening bilateral lung infiltrates. Assessment/Plan Acute hypoxic and hypercapnic respiratory failure requiring mechanical ventilation CHF decompensated metabolic alkalosis 2/2 chronic diuretic use Pulmonary edema Acute kidney injury Hypoglycemia Leukocytosis Elevated LFTs History of Prader-Willi Admit to MICU, continue on mechanical ventilation, started prevention ventilator associated pneumonia protocol. Sedation protocol to continue. Titrate as appropriate History of CHF with proBNP greater than 8000. Chest x-ray demonstrating some pulmonary edema. Home diuretic to be restarted. Patient may benefit from Lasix gtt. consider cardiology consult. Unknown etiology of heart failure exacerbation, ?infection. Infectious workup to be obtained. Bloodcultures pending. Extended respiratory panel, MRSA PCR, urine analysis with reflex culture, atypicals to be obtained ABG demonstrates metabolic alkalosis. I suspect patient has OHS chronically retains CO2. Vent settings to be adjusted. We will also offer Diamox 250 mg p.o. x 1 Home medications to be restarted as appropriate Electrolytes repleted as needed CODE STATUS full code DVT PPx heparin subcu Diet n.p.o. This case discussed with attending Dr. West. Please see addendum for any changes and/or further instructions. Problem List/Past Medical History Ongoing CHF (congestive heart failure) Prader-Willi syndrome Procedure/Surgical History No qualifying data available. Medications Home Medications (16) Active ammonium lactate 12% topical cream 1 cristian, Topical, qHS aspirin 81 mg oral delayed release tablet 81 mg = 1 tab(s), Oral, Daily Breo Ellipta 100 mcg-25 mcg/inh inhalation powder 1 puff(s), Inhalation, Daily calcium carbonate 500 mg (200 mg elemental calcium) oral tablet, chewable 500 mg = 1 tab(s), Chewed, BID carvedilol 3.125 mg oral tablet 3.125 mg = 1 tab(s), Oral, BIDM cephalexin 500 mg oral tablet 500 mg = 1 tab(s), PO, QID clotrimazole 1% topical cream 1 cristian, Topical, BID Dulera 100 mcg-5 mcg/inh Metered Dose Inhaler 2 puff(s), Inhalation, BID EPINEPHrine 0.3 mg injectable kit 0.3 mg = 1 EA, PRN, Intramuscular, AsDirected fluticasone proprionate NASAL 50 mcg/ spray 50 mcg = 1 spray(s), Nostril, each, qAM levothyroxine 100 mcg (0.1 mg) oral tablet 100 mcg = 1 tab(s), Oral, qDay norethindrone 0.35 mg oral tablet 0.35 mg = 1 tab(s), Oral, qDay nystatin 100,000 units/g topical powder 1 cristian, Topical, qHS omega-3 polyunsaturated fatty acids ethyl esters 1000 mg oral capsule 2,000 mg = 2 cap(s), Oral, qDay Therapeutic Multiple Vitamins with Minerals, Zinc and Elderberry oral tablet, chewable 1 tab, Chewed, qDay torsemide 20 mg oral tablet 20 mg = 1 tab(s), Oral, BID Allergies Bee Stings Dilantin misc non-codified allergy Immunizations No qualifying data available. Code Status Code Status - Ordered -- 05/13/24 1:22:00 EST, Full Code, Constant Order Digitally Signed by ARIEL GUERRERO MD on 05/13/2024 03:43 AM [facility] [id number] Evaluation + Plan noteExtracted from: Title:History and Physical Author:PÉREZ GUERRERO MD Date:05/13/24 Acute hypoxic and hypercapni c respiratory failure requiring mechanical ventilation CHF decompensated metabolic alkalosis 2/2 chronic diuretic use Pulmonary edema Acute kidney injury Hypoglycemia Leukocytosis Elevated LFTs History of Prader-Willi Admit to MICU, continue on mechanical ventilation, started prevention ventilator associated pneumonia protocol. Sedation protocol to continue. Titrate as appropriate History of CHF with proBNP greater than 8000. Chest x-ray demonstrating some pulmonary edema. Home diuretic to be restarted. Patient may benefit from Lasix gtt. consider cardiology consult. Unknown etiology of heart failure exacerbation, ?infection. Infectious workup to be obtained. Blood cultures pending. Extended respiratory panel, MRSA PCR, urine analysis with reflex culture, atypicals to be obtained ABG demonstrates metabolic alkalosis. I suspect patient has OHS chronically retains CO2. Vent settings to be adjusted. We will also offer Diamox 250 mg p.o. x 1 Home medications to be restarted as appropriate Electrolytes repleted as needed CODE STATUS full code DVT PPx heparin subcu Diet n.p.o. This case discussed with attending Dr. West. Please see addendum for any changes and/or further instructions. Addendum by FRANKLYN STAPLETON MD on May 13, 2024 16:18:51 EST The patient was seen and examined and discussed with housestaff History of present illness, past medical history, social history, medications, and review of system obtained. Physical examination performed. History and physical was reviewed This patient is a 43-year-old white female with history of Prader-Willi syndrome, who is a resident at [facility]. The patient apparently appeared altered on the phone. She was transported to the emergency room where she was found to be in significant respiratory distress. At 1 point, there was concern that the pulse was lost and 2 rounds of CPR were done with a pulse back. Followed commands afterwards. The patient was intubated. She was diagnosed with heart failure and was given Lasix initially. She was then transported to the medical intensive care unit. She apparently was recently hospitalized at [facility] with heart failure. These results are not available. As mentioned above she has history of Prader-Willi syndrome and heart disease. She is she has intellectual disability as well. No history of smoking or drug use. Per mother the patient does have obstructive sleep apnea and uses CPAP regularly she is able to do her ADLs The patient is intubated on mechanical ventilation. She is on CMV of 18, 430, 40%, and 5 of PEEP. She is sedated with propofol 50 mcg/kg/min but not on any pressors. Even with propofol sedation, the patient is slightly responsive. Does follow commands. Pointing to her ET tube. Lungs are coarse bilaterally and heart is regular. Abdomen obese but nontender. She is short stature. Significant leg swelling with some redness pretibial on the left side but no warmth. Per mom, this is normal in appearance. Chest x-ray still shows pulmonary edema. Arterial blood gases 7.53, 53, 278, 99%. Serum bicarb more than 40 Impression: 1. Acute on chronic respiratory failure requiring mechanical ventilation 2. Acute exacerbation of heart failure. Unknown ejection fraction. Pulmonary edema 3. 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 Continue mechanical ventilation. Adjust settings to allow pCO2 to rise to low 60s 2. Continue sedation with propofol 15 mcg/kg/min for comfort 3. Bumetanide 2 mg twice daily 4. Replace potassium to keep more than 4.2 mEq/dL 5. Echocardiogram 6. Start tube feeding 7. Chest x-ray and blood work in a.m. 7. No indication for Diamox 8. GI and DVT prophylaxis 9. TSH Discussed in detail with the patient's mother at the bedside. She is concerned about the [facility]. Prognosis is guarded Critical care time 35 minutes Franklyn Stapleton MD [facility] Future Appointments Appointment Date:06/04/2024 01:45:00 PM Scheduled Provider:MARCELINO FALK Location:[facility] Appointment Type:[facility] Follow Up Appointment Date:06/22/2024 10:30:00 AM Scheduled Provider: [facility]oint[facility] Type:CV OV CHF Diagnostic Tests Pending * Culture Respiratory with Gram Stain 05/20/24 [facility] 03-06-2025 History and physical note Date of Service 05/13/2024 History of Present Illness 43-year-old female with significant past medical history of Prader-Willi and CHF transferred from [facility] after intubation and mechanical ventilation due to AMS. Patient was brought to the hospital via personal vehicle from retirement due to altered mentation. On arrival to [facility] emergency room patient was unresponsive, demonstrating difficulty breathing, with difficulty to appreciate pulse. Subsequently CPR was started however ROSC achieved prior to the need for medication or defibrillation. Patient was intubated and placed on mechanical ventilation. Initial BP on arrival was 90/42 HR 71 RR 20 temp 36.9 C SpO2 97% with ambu bag. Chest x-ray demonstrating central venous pulmonary congestion with diffuse peribronchial. Of note family reports patient typically goes to [facility]. Patient was discharged 05/05 after treatment for volume overload secondary to heart failure exacerbation. 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 Review of Systems Patient intubated. Physical Exam Vitals and Measurements T: 36.6 C (Oral) HR: 56 (Monitored) RR: 18 RR: 0 (Spontaneous) RR: 18 (Total) BP: 102/68 SpO2: 99% HT: 149 cm WT: 136.1 kg BMI: 61.3 Weight Dosing Weight: 136.1 kg (05/13/24) General: No acute distress. Awake and conversant. obese Eyes: Normal conjunctiva, anicteric, EOMI, round symmetric pupils. ENT: Hearing grossly intact. No nasal discharge. Normocephalic, atraumatic. Neck: Neck is supple. No masses or thyromegaly. Trachea midline. Respiratory: Respirations are non-labored. Symmetric chest wall expansion. Poor air movement bilaterallly. Cardiovascular: No lower extremity edema. Regular rate/rhythm. No murmurs/rubs/gallops appreciated. Abdomen: Non-distended, non-tender. MSK: No clubbing or cyanosis. ROM grossly intact. No obvious deformities. Neuro: Normal/non-dysarthric speech. Face symmetric. Sensation and CN 2-12 grossly normal. Skin: Warm and well perfused. No rashes or ulcers in visible skin. Lab Results No 36 Hour Lab Data Imaging Results and Diagnostics XR Chest 1 View Result Date: May 13, 2024 Verified By: QUAN JEONG MD CLINICAL STATEMENT: IMPRESSION: 1. Endotracheal tube and enteric tube are in satisfactory position.2. Stable bilateral lung infiltrates. XR Enteric Tube Placement Result Date: May 13, 2024 Verified By: QUAN JEONG MD CLINICAL STATEMENT: IMPRESSION: 1. Endotracheal tube tip is at the level of the fadumo and should beretracted 4 cm.2. Orogastric tube is in satisfactory position.3. Worsening bilateral lung infiltrates. XR Chest 1 View Result Date: May 13, 2024 Verified By: ADENIKE FERNANDES, QUAN Campbell CLINICAL STATEMENT: IMPRESSION: 1. Endotracheal tube tip is at the level of the fadumo and should beretracted 4 cm.2. Orogastric tube is in satisfactory position.3. Worsening bilateral lung infiltrates. Assessment/Plan Acute hypoxic and hypercapnic respiratory failure requiring mechanical ventilation CHF decompensated metabolic alkalosis 2/2 chronic diuretic use Pulmonary edema Acute kidney injury Hypoglycemia Leukocytosis Elevated LFTs History of Prader-Willi Admit to MICU, continue on mechanical ventilation, started prevention ventilator associated pneumonia protocol. Sedation protocol to continue. Titrate as appropriate History of CHF with proBNP greater than 8000. Chest x-ray demonstrating some pulmonary edema. Home diuretic to be restarted. Patient may benefit from Lasix gtt. consider cardiology consult. Unknown etiology of heart failure exacerbation, ?infection. Infectious workup to be obtained. Bloodcultures pending. Extended respiratory panel, MRSA PCR, urine analysis with reflex culture, atypicals to be obtained ABG demonstrates metabolic alkalosis. I suspect patient has OHS chronically retains CO2. Vent settings to be adjusted. We will also offer Diamox 250 mg p.o. x 1 Home medications to be restarted as appropriate Electrolytes repleted as needed CODE STATUS full code DVT PPx heparin subcu Diet n.p.o. This case discussed with attending Dr. West. Please see addendum for any changes and/or further instructions. Problem List/Past Medical History Ongoing CHF (congestive heart failure) Prader-Willi syndrome Procedure/Surgical History No qualifying data available. Medications Home Medications (16) Active ammonium lactate 12% topical cream 1 cristian, Topical, qHS aspirin 81 mg oral delayed release tablet 81 mg = 1 tab(s), Oral, Daily Breo Ellipta 100 mcg-25 mcg/inh inhalation powder 1 puff(s), Inhalation, Daily calcium carbonate 500 mg (200 mg elemental calcium) oral tablet, chewable 500 mg = 1 tab(s), Chewed, BID carvedilol 3.125 mg oral tablet 3.125 mg = 1 tab(s), Oral, BIDM cephalexin 500 mg oral tablet 500 mg = 1 tab(s), PO, QID clotrimazole 1% topical cream 1 cristian, Topical, BID Dulera 100 mcg-5 mcg/inh Metered Dose Inhaler 2 puff(s), Inhalation, BID EPINEPHrine 0.3 mg injectable kit 0.3 mg = 1 EA, PRN, Intramuscular, AsDirected fluticasone proprionate NASAL 50 mcg/ spray 50 mcg = 1 spray(s), Nostril, each, qAM levothyroxine 100 mcg (0.1 mg) oral tablet 100 mcg = 1 tab(s), Oral, qDay norethindrone 0.35 mg oral tablet 0.35 mg = 1 tab(s), Oral, qDay nystatin 100,000 units/g topical powder 1 cristian, Topical, qHS omega-3 polyunsaturated fatty acids ethyl esters 1000 mg oral capsule 2,000 mg = 2 cap(s), Oral, qDay Therapeutic Multiple Vitamins with Minerals, Zinc and Elderberry oral tablet, chewable 1 tab, Chewed, qDay torsemide 20 mg oral tablet 20 mg = 1 tab(s), Oral, BID Allergies Bee Stings Dilantin misc non-codified allergy Immunizations No qualifying data available. Code Status Code Status - Ordered -- 05/13/24 1:22:00 EST, Full Code, Constant Order Digitally Signed by ARIEL GUERRERO MD on 05/13/2024 03:43 AM [facility] [id number] HCoV 229E RNA DOV+non-probe Ql (Nph)Not Detected *NA* (05/13/24 2:44 AM)AH [employer] V[employer]/Sero [id number] NoteHNO ID: [id number] Author: MIKA KAPLAN APRN.MANAGER [employer]EL Service: ? Author Type: Nurse Practitioner Type: Progress Notes Filed: 05/10/2024 16:39 Note Text: sertralCC: Patient presents with: Recheck: ER follow up, cellulitis HPI Sia Abdul is a 43 year old female who presents today for recent Hospital stay for cellulitis and anxiety Was at [facility] on 04/28-05/02 for exacerbation of CHF and is following with Dr. 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 Is on torsemide for this and another medicine she reports that start with an m she states she takes weekly. No recent medications starting with m filled recently that fit this description. Shortly after discharge her RLE became more swollen, blistered, red, and painful. Went to the ER on 05/08 and prescribed cephalexin for 10 days. Patient reports leg is still painful or sore. Mother feels it has decreased in its redness. Has small blister area to bottom inside of RLE that is starting to scab over. Denies fever, body aches, cough or wheezing. Concerns with anxious feelings. Is having trouble sleeping. [employer] bought her senior living last year and made changes which have not made her very trusting of them. Patient very negative with description of her current caretakers of her senior living. Feels they do not feel her well and swap out her food These reported changes have made for a poor diet she feels has impacted with her routine hospitalizations. Mother is aware of these concerns and state her renal case manager is looking into this. Sleep: difficulty staying asleep, difficulty falling asleep. Reports having to sleep with a light on. Has to sleep with a light on when she stays at her mothers house as well. Patient without a history of anxiety and never been on any anxiety or antidepressant type medications before. 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 NONE ALLERGIES Bee Sting, Bumex [Bumetanide], and Dilantin [Phenytoin Sodium Extended] MEDICATIONS sertraline (ZOLOFT) 25 mg tablet Take 1 tablet by mouth once daily. torsemide (DEMADEX) 20 mg tablet Take an extra 20 a day mgs In addition to current dose of 40 mgs 2 times on days you have more than 5 pounds of water weight gain fluticasone-vilanterol (BREO ELLIPTA) 100-25 mcg/dose inhaler Inhale 1 Inhalation as instructed once daily. IRAIDA 0.35 mg tablet Take 1 tablet by mouth once daily. EPINEPHrine (EPIPEN) 0.3 mg/0.3 mL auto-injector INJECT 1 PEN INTO LATERAL THIGH DIRECTED FOR ALLERGIC REACTIONS TO BEE/WASP STINGS MAY REPEAT IN 5-15 MINUTES IF SYMPTOMS PERSIST * *STAFF REORDER, 4 DAYS IN ADVANCE* torsemide (DEMADEX) 20 mg tablet Take 2 tablets by mouth two times a day. MEDICAL SUPPLY Lymphedema compression pump to both legs 1 hour daily. 60 mm Hg. New machine. mometasone-formoterol (DULERA) 100-5 mcg/actuation inhaler Inhale 2 Puffs as instructed two times a day. fluticasone (FLONASE) 50 mcg/actuation nasal spray INSTILL 2 SPRAYS IN EACH NOSTRIL DAILY diphenoxylate-atropine (LOMOTIL) 2.5-0.025 mg per tablet Take 1 tablet by mouth four times a day as needed. ondansetron (ZOFRAN) 4 mg tablet Take by mouth every 8 hours as needed for nausea/vomiting. aspirin 81 mg chewable tablet Take 81 mg by mouth once daily. carvedilol (COREG) 3.125 mg tablet Take 1 tablet by mouth two times a day. ammonium lactate (LAC-HYDRIN) 12 % cream APPLY TOPICALLY TO AFFECTED AREA(S) ON LEGS AT BEDTIME multivitamin-ferrous fumarate-folic acid (CERTAVITE-ANTIOXIDANT) Take 1 tablet by mouth once daily. Ssqfv-6-HTM-EPA-Fish Oil 1,000 mg (120 mg-180 mg) cap Take 1 capsule by mouth once daily. levothyroxine (SYNTHROID) 100 mcg tablet take one tablet by mouth daily one hour before breakfast nystatin (NYAMYC) powder APPLY TOPICALLY TWICE DAILY TO AFFECTED AREA(S) ON ABDOMINAL FOLDS OYSTER SHELL CALCIUM-VITAMIN D 500 mg-5 mcg (200 unit) per tablet take one tablet by mouth twice daily with meals clotrimazole (LOTRIMIN) 1 % cream APPLY TOPICALLY TO AFFECTED AREA(S) ON BILATERAL GROIN TWICE DAILY (Patient taking differently: as needed. APPLY TOPICALLY TO AFFECTED AREA(S) ON BILATERAL GROIN TWICE DAILY) albuterol HFA (VENTOL (more content not included)...[facility] 05-10-2024 History of Present illness Narrative* Mika Kaplan APRN.[facility] - 05/10/2024 2:05 PM EST sertralCC: Patient presents with: Recheck: ER follow up, cellulitis HPI Sia Abdul is a 43 year old female who presents today for recent Hospital stay for cellulitis and anxiety Was at [facility] on 04/28-05/02 for exacerbation of CHF and is following with Dr. Maxine Bartlett for this who is her tier lift truck operator. Is on torsemide for this and another medicine she reports that start with an m she states she takes weekly. No recent medications starting with m filled recently that fit this description. Shortly after discharge her RLE became more swollen, blistered, red, and painful. Went to the ER on 05/08 and prescribed cephalexin for 10 days. Patient reports leg isstill painful or sore. Mother feels it has decreased in its redness. Has small blister area to bottom inside of RLE that is starting to scab over. Denies fever, body aches, cough or wheezing. Concerns with anxious feelings. Is having trouble sleeping. [employer] bought her senior living last year and made changes which have not made her very trusting of them. Patient very negative with description of her current caretakers of her senior living. Feels they do not feel her well and swap out her food These reported changes have made for a poor diet she feels has impacted with her routine hospitalizations. Mother is aware of these concerns and state her renal case manager is looking into this. Sleep: difficulty staying asleep, difficulty falling asleep. Reports having to sleep with a light on. Has to sleep with a light on when she stays at her mothers house as well. Patient without a history of anxiety and never been on any anxiety or antidepressant type medications before. 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 NONE ALLERGIES Bee Sting, Bumex [Bumetanide], and Dilantin [Phenytoin Sodium Extended] MEDICATIONS sertraline (ZOLOFT) 25 mg tablet Take 1 tablet by mouth once daily. torsemide (DEMADEX) 20 mg tablet Take an extra 20 a day mgs In addition to current dose of 40 mgs 2times on days you have more than 5 pounds of water weight gain fluticasone-vilanterol (BREO ELLIPTA) 100-25 mcg/dose inhaler Inhale 1 Inhalation as instructed once daily. IRAIDA 0.35 mg tablet Take 1 tablet by mouth once daily. EPINEPHrine (EPIPEN) 0.3 mg/0.3 mL auto-injector INJECT 1 PEN INTO LATERAL THIGH DIRECTED FOR ALLERGIC REACTIONS TO BEE/WASP STINGS MAY REPEAT IN 5-15 MINUTES IF SYMPTOMS PERSIST * *STAFF REORDER,4 DAYS IN ADVANCE* torsemide (DEMADEX) 20 mg tablet Take 2 tablets by mouth two times a day. MEDICAL SUPPLY Lymphedema compression pump to both legs 1 hour daily. 60 mm Hg. New machine. mometasone-formoterol (DULERA) 100-5 mcg/actuation inhaler Inhale 2 Puffs as instructed two times aday. fluticasone (FLONASE) 50 mcg/actuation nasal spray INSTILL 2 SPRAYS IN EACH NOSTRIL DAILY diphenoxylate-atropine (LOMOTIL) 2.5-0.025 mg per tablet Take 1 tablet by mouth four times a day asneeded. ondansetron (ZOFRAN) 4 mg tablet Take by mouth every 8 hours as needed for nausea/vomiting. aspirin 81 mg chewable tablet Take 81 mg by mouth once daily. carvedilol (COREG) 3.125 mg tablet Take 1 tablet by mouth two times a day. ammonium lactate (LAC-HYDRIN) 12 % cream APPLY TOPICALLY TO AFFECTED AREA(S) ON LEGS AT BEDTIME multivitamin-ferrous fumarate-folic acid (CERTAVITE-ANTIOXIDANT) Take 1 tablet by mouth once daily. Sadcr-1-FAH-EPA-Fish Oil 1,000 mg (120 mg-180 mg) cap Take 1 capsule by mouth once daily. levothyroxine (SYNTHROID) 100 mcg tablet take one tablet by mouth daily one hour before breakfast nystatin (NYAMYC) powder APPLY TOPICALLY TWICE DAILY TO AFFECTED AREA(S) ON ABDOMINAL FOLDS OYSTER SHELL CALCIUM-VITAMIN D 500 mg-5 mcg (200 unit) per tablet take one tablet by mouth twice daily with meals clotrimazole (LOTRIMIN) 1 % cream APPLY TOPICALLY TO AFFECTED AREA(S) ON BILATERAL GROIN TWICE DAILY (Patient taking differently: as needed. APPLY TOPICALLY TO AFFECTED AREA(S) ON BILATERAL GROIN TWICE DAILY) albuterol HFA (VENTOLIN HFA) 90 mcg/actuation inhaler Inhale 2 Puffs as instructed every 4 hours asneeded for wheezing/shortness of breath. acetaminophen (TYLENOL EXTRA STRENGTH) 500 mg tablet Take 2 tablets by mouth every 8 hours as needed for pain (For knee pain). Gauze Bandage 2 X 2 bndg Apply 1 application to affected area twice daily. cetirizine (ZYRTEC) 10 mg tablet Take 1 [...] No Drug use: No PHYSICAL EXAM BP (P) 120/78 Pulse (P) 78 Resp (P) 16 Wt (P) 133.4 kg (294 lb) LMP 05/13/2007 SpO2 (P) 95% BMI (P) 64.75 kg/m General Appearance: well appearing, in no acute distress, alert Pysch: flat affect which is typical of patient. Very negative comments on people which is new within conversation in visits but no outward appearance of anger, irritation, or anxiousness Lungs: Lungs clear to auscultation. No wheezing, rhonchi, rales. Heart: RRR without murmur, gallop, or rubs. No ectopy Extremities: RLE lymphedema at baseline, LLE with lymphedema: erythema to edges from upper gonzales with deeper red extending to ankle. Dry scaly patches but dime size yellowing scab to medial side belowleft ankle. No drainage or open area at this time. Per patient and mother this is where previous blister was located. Leg slip tender and slightly warmer to the touch. No red streaking. Health maintenance reviewed with patient: Spirometry Never done Depression Screening Never done Anxiety Screening Never done Hepatitis B Vaccine(1 of 3 - 19+ 3-dose series) Never done Pneumococcal Vaccine(2 of 2 - PCV) due on 04/11/2007 Alpha-1 Antitrypsin Deficiency Screening Never done Covid-19 Vaccine(2023- season) due on 11/09/2023 Mammogram Screening due on 07/03/2024 DTaP,Tdap,Td Vaccine(2 - Td or Tdap) due on 01/09/2025 Annual PCP Team Chronic Disease Visit due on 05/10/2025 Cervical Cancer Screening due on 05/22/2026 Influenza Vaccine Completed Hepatitis C Screening Completed HIV Screening Completed DATA REVIEWED: Outside chart from [facility] reviewed. ASSESSMENT/PLAN: 1. Cellulitis of left lower extremity - ICD9: 682.6, ICD10: L03.116 (primary diagnosis) - Continue treatment with current antibiotic - No lymphangetic streaking, this was defined for patient to watch for and to seek medical care immediately if appears - Follow up for recheck next week or earlier if needed 2. Anxiety - ICD9: 300.00, ICD10: F41.9 Very concerning with her change in care givers. Discussed with her PCP so she is aware at her follow up next week. Mother is working with her renal case manager to figure out what is going on. With her prader willi, her affect is typically flat but patient does report noticing anxiety and difficulty sleeping as a result. Maybe her current living concerns but also has had multiple health issues and breathing difficulties too. Will start very low dose sertraline and monitor closely. - Reviewed concept of neurochemical imbalance wth depression/anxiety, treatment options and benefits of counseling in combination with medication. Also reviewed benefits of sleep hygeine, diet and exercise - Instructed patient to contact office or [id number] after-hours promptly should condition worsen or any new symptoms appear. - Counseling Center [facility] and after hours crisis line 3. 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 Potential red flag symptoms discussed with the patient. Reviewed appropriate action plan to take if red flag symptoms occur. Patient agreeable to treatment plan. Mika Kaplan APRN.CNP [facility] Discharge instructions Patient Education 05/08/2024 12:30:12 Cellulitis Skin Infection Cellulitis Cellulitis is an infection of the deep layers of skin. A break in the skin, such as a cut or scratch, can let bacteria under the skin. If the bacteria get to deep layers of the skin, it can be serious. If not treated, cellulitis can get into the bloodstream and lymph nodes. The infection can then spread throughout the body. This causes serious illness. Cellulitis causes the affected skin to become red, swollen, warm, and sore. The reddened areas havea visible border. An open sore may leak fluid (pus). You may have a fever, chills, and pain. Cellulitis is treated with antibiotics taken for 7 to 10 days. An open sore may be cleaned and covered with cool wet gauze. Symptoms should get better 1 to 2 days after treatment is started. Make sure to take all the antibiotics for the full number of days until they are gone. Keep taking the medicine even if your symptoms go away. Home care Follow these tips: Limit the use of the part of your body with cellulitis. If the infection is on your leg, keep your leg raised while sitting. This will help to reduce swelling. Take all of the antibiotic medicine exactly as directed until it is gone. Do not miss any doses, especially during the first 7 days. Don t stop taking the medicine when your symptoms get better. Keep the affected area clean and dry. Wash your hands with soap and warm water before and after touching your skin. Anyone else who touches your skin should also wash his or her hands. Don't share towels. Follow-up care Follow up with your healthcare provider, or as advised. If your infection does not go away on the first antibiotic, your healthcare provider will prescribe a different one. When to seek medical advice Call your healthcare provider right away if any of these occur: Red areas that spread Swelling or pain that gets worse Fluid leaking from the skin (pus) Fever higher of 100.4 F (38.0 C) or higher after 2 days on antibiotics 5464-2838 [employer]. [address] [place] [address]. All rights reserved. This information is not intended as a substitute for professional medical care. Always follow yourhealthcare professional's instructions. Follow Up Care 05/08/2024 11:00:30 With:MARILEE THAKUR Address: [address] [place] [id number] SP3H (1) When:2-4 days Comments:Schedule appointment for close follow-up.Use Tylenol or Advil for pain and fever as needed.Use antibiotic (cephalexin) as prescribed to treat cellulitis (skin infection).Return to the ED if symptoms worsen. [facility] 03-01-2025 Emergency department Discharge summary Discharge Instructions Thank you for allowing [facility] to assist you with your healthcare needs. The following is importantdischarge information regarding your hospital visit. What to Do Next Instructions from Your Care Team No qualifying data available. Post Acute Orders No qualifying data available. You Need to Schedule the Following Appointments Follow Up with MARILEE THAKUR When:Within 2-4 days Where:[address] [place] [id number] SP3H (1) Additional Information: Schedule appointment for close follow-up. Use Tylenol or Advil for pain and fever as needed. Use antibiotic (cephalexin) as prescribed to treat cellulitis (skin infection). Return to the ED if symptoms worsen. Allergies Bee Stings Dilantin misc non-codified allergy Medications Please ask your primary doctor or pharmacist before taking any other medication not listed, including over the counter drugs, herbal medications, vitamins and or supplements as they may interact withyour home medications. What How Much When Instructions Last Dose New cephalexin (cephalexin 500 mg oral tablet) 1 tab(s) by mouth Four (4) times a day Duration: 10 Days Printed Prescription Please take this list to your next doctor s visit. Bring all medications you take, including over the counter medications, herbals and other supplements with you to your doctor s visit. Patients and families are reminded to discard old lists and to update any records with all medication providers or retail pharmacies. Medication Leaflets cephalexin (sef a VINCE in) What is the most important information I should know about cephalexin? You should not use this medicine if you are allergic to cephalexin or to similar antibiotics, such as Ceftin, Cefzil, Omnicef, and others. Tell your doctor if you are allergic to any drugs, especially penicillins or other antibiotics. What is cephalexin? Cephalexin is a cephalosporin (SEF a low spor in) antibiotic that is used to treat bacterial infections of the lungs, ear, skin, bones, bladder, and kidneys. Cephalexin is used to treat infections in adults and children who are at least 1 year old. Cephalexin may also be used for purposes not listed in this medication guide. What should I discuss with my healthcare provider before taking cephalexin? You should not use this medicine if you are allergic to cephalexin or any other cephalosporin antibiotic (cefdinir, cefadroxil, cefoxitin, cefprozil, ceftriaxone, cefuroxime, Omnicef, and others). Tell your doctor if you have ever had: an allergy to any drug (especially penicillin); liver or kidney disease; or intestinal problems, such as colitis. The liquid form of cephalexin may contain sugar. This may affect you if you have diabetes. Tell your doctor if you are or breast-feeding. How should I take cephalexin? Follow all directions on your prescription label and read all medication guides or instruction sheets. Use the medicine exactly as directed. Do not use cephalexin to treat any condition that has not been checked by your doctor. Measure liquid medicine carefully. Use the dosing syringe provided, or use a medicine dose-measuring device (not a kitchen spoon). Use this medicine for the full prescribed length of time, even if your symptoms quickly improve. Skipping doses can increase your risk of infection that is resistant to medication. Cephalexin will not treat a viral infection such as the flu or a common cold. Do not share cephalexin with another person, even if they have the same symptoms you have. This medicine can affect the results of certain medical tests. Tell any doctor who treats you that you are using cephalexin. Store the tablets and capsules at room temperature away from moisture, heat, and light. Store the liquid medicine in the refrigerator. Throw away any unused liquid after 14 days. What happens if I miss a dose? Take the medicine as soon as you can, but skip the missed dose if it is almost time for your next dose. Do not take two doses at one time. What happens if I overdose? Seek emergency medical attention or call the Poison Help line at . Overdose symptoms may include nausea, vomiting, stomach pain, diarrhea, and blood in your urine. What should I avoid while taking cephalexin? Antibiotic medicines can cause diarrhea, which may be a sign of a new infection. If you have diarrhea that is watery or bloody, call your doctor before using anti-diarrhea medicine. What are the possible side effects of cephalexin? Get emergency medical help if you have signs of an allergic reaction (hives, difficult breathing, swelling in your face or throat) or a severe skin reaction (fever, sore throat, burning eyes, skin pain, red or purple skin rash with blistering and peeling). Call your doctor at once if you have: severe stomach pain, diarrhea that is watery or bloody (even if it occurs months after your last dose); unusual tiredness, feeling light-headed or short of breath; easy bruising, unusual bleeding, purple or red spots under your skin; a seizure; pale skin, cold hands and feet; yellowed skin, dark colored urine; fever, weakness; or pain in your side or lower back, painful urination. Common side effects may include: diarrhea; nausea, vomiting; indigestion, stomach pain; or vaginal itching or discharge. This is not a complete list of side effects and others may occur. Call your doctor for medical advice about side effects. You may report side effects to FDA at 1-673-WOL-8055. What other drugs will affect cephalexin? Tell your doctor about all your other medicines, especially: metformin; or probenecid. This list is not complete. Other drugs may affect cephalexin, including prescription and odsv-cad-jtzoaad medicines, vitamins, and herbal products. Not all possible drug interactions are listed here. Where can I get more information? Your pharmacist can provide more information about cephalexin. Remember, keep this and all other medicines out of the reach of children, never share your medicines with others, and use this medication only for the indication prescribed. Every effort has been made to ensure that the information provided by [employer]. ('[employer]') is accurate, up-to-date, and complete, but no guarantee is made to that effect. Drug information contained herein may be time sensitive. [employer] information has been compiled for use by healthcare practitioners and consumers in the [place] and therefore [employer] does not warrant that uses outside of the [place] are appropriate, unless specifically indicated otherwise. [employer] drug information does not endorse drugs, diagnose patients or recommend therapy. [employer] drug information isan informational resource designed to assist licensed healthcare practitioners in caring for their p atients and/or to serve consumers viewing this service as a supplement to, and not a substitute for, the expertise, skill, knowledge and judgment of healthcare practitioners. The absence of a warningfor a given drug or drug combination in no way should be construed to indicate that the drug or drug combination is safe, effective or appropriate for any given patient. [employer] does not assume any responsibility for any aspect of healthcare administered with the aid of information [employer] provides. The information contained herein is not intended to cover all possible uses, directions, precautions, warnings, drug interactions, allergic reactions, or adverse effects. If you have questions about the drugs you are taking, check with your doctor, nurse or pharmacist. Copyright 5722-6593 [employer] Version: .. Revision Date: 10/09/2022. Education Materials Cellulitis Cellulitis is an infection of the deep layers of skin. A break in the skin, such as a cut or scratch, can let bacteria under the skin. If the bacteria get to deep layers of the skin, it can be serious. If not treated, cellulitis can get into the bloodstream and lymph nodes. The infection can then spread throughout the body. This causes serious illness. Cellulitis causes the affected skin to become red, swollen, warm, and sore. The reddened areas havea visible border. An open sore may leak fluid (pus). You may have a fever, chills, and pain. Cellulitis is treated with antibiotics taken for 7 to 10 days. An open sore may be cleaned and covered with cool wet gauze. Symptoms should get better 1 to 2 days after treatment is started. Make sure to take all the antibiotics for the full number of days until they are gone. Keep taking the medicine even if your symptoms go away. Home care Follow these tips: Limit the use of the part of your body with cellulitis. If the infection is on your leg, keep your leg raised while sitting. This will help to reduce swelling. Take all of the antibiotic medicine exactly as directed until it is gone. Do not miss any doses, especially during the first 7 days. Don t stop taking the medicine when your symptoms get better. Keep the affected area clean and dry. Wash your hands with soap and warm water before and after touching your skin. Anyone else who touches your skin should also wash his or her hands. Don't share towels. Follow-up care Follow up with your healthcare provider, or as advised. If your infection does not go away on the first antibiotic, your healthcare provider will prescribe a different one. When to seek medical advice Call your healthcare provider right away if any of these occur: Red areas that spread Swelling or pain that gets worse Fluid leaking from the skin (pus) Fever higher of 100.4 F (38.0 C) or higher after 2 days on antibiotics [id number] [employer]. [address] [place] [address]. All rights reserved. This information is not intended as a substitute for professional medical care. Always follow yourhealthcare professional's instructions. Additional Information VACCINATE! IT SAVES LIVES! Members of the community who have not yet received the COVID-19 vaccine and would like to receive it can visit one of [facility] vaccine clinics. There are many vaccine clinic locations within the [facility]. For locations and available times, please visit www.[email or web address].[email or web address]/. It is important to note that some COVID mobile vaccine clinics are held outdoors and may be canceled in rainy or stormy conditions. To learn more about pediatric vaccinations (ages 5-11), we invite you to visit the [facility] webpage. [email or web address]/[email or web address]-[email or web address] learn more about the COVID-19 vaccine, we invite you to visit the CDC website for a list of frequently asked questions. https://www.cdc.gov/coronavirus/2019-ncov/vaccines/faq.html [facility] [employer] Patient Portal Access Instructions: Stay connected with your healthcare team and access your personal medical information anytime with the [employer] Patient Portal. If you would like a full copy of your medical records please contact the [facility] Medical Records Department Friday through Friday between 8a.m. and 4:30p.m. Please follow the directions below to access the portal: 1.Access the email account you provided upon registration to the [facility].2.Look for an invitation email from [facility].3.Open the email and access the invitation link: Accept Invitation to [facility]4.Fill in the required perez to create your account. Sign into [email or web address] with your username and password that you [...] you will allow to register on the [facility] Patient Portal for access to your information. You can also access the [facility] Patient Portal on the [employer] Simply click on Health Records under HealthData and then click on the [employer] logo. HOW TO SAFELY DISPOSE OF PRESCRIPTION MEDICATIONS Please use one of the following methods to safely dispose of your unused medications. 1.Use a drug disposal kit: the drug disposal pouch allows you to safely discard your old and unuseddrugs. Ask your nurse to give you one when you are discharged.2.Visit a local take-back location: Many local pharmacies and police departments have programs that collect old and unwanted prescriptiondrugs. Call your local pharmacy or go to http://bit.[employer]/6V1Fg1z to find one close to you.3.Make use of household items: Use cat litter or old coffee grounds to dispose medications if other options arenot available. Mix your drugs with these household products, seal them in an airtight container andthrow it into the garbage. Call [facility]: [phone] to be sure your drugs can be [...] drowsiness, such as benzodiazepines, also known as benzos,including diazepam and alprazolam, muscle relaxants or sleep aids. Never sell or share prescriptionopioids. This is illegal. Store opioids in a secure place and out of reach of others (including children, family, friends and visitors). The last page(s) of this document has been signed and retained as a CHART COPY Signatures Patient Education Materials Cellulitis Skin Infection Medication Leaflets cephalexin My discharge plan and instructions have been reviewed and explained to me and ICHANTELL NICKEIA A understand my current condition and have read and understand these discharge instructions. I have received a written copy of the plan/instructions. If I have questions, I am aware that I should contact my doctor. 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 [facility]02-27-2025 Miscellaneous Notes* Telephone Encounter - María Avila MA - 05/06/2024 8:18 AM EST Leia notified. * Telephone Encounter - Mika Kaplan APRN.CNP - 05/06/2024 8:06 AM EST Agree with order for PT. Thank you Mika Kaplan APRN.CNP * Telephone Encounter - Candelaria Ball LPN - 05/05/2024 3:29 PM EST Leia from [facility] calling asking for a new verbal order for PT plan of care 2 visits weekly for 4 weeks, please. Please advise documented in this [facility] Telephone encounter Note * Telephone Encounter - Mika Kaplan APRN.CNP - 05/06/2024 8:06 AM EST Agree with order for PT. Thank you Mika Kaplan APRN.CNP [facility]02-26-2025 Telephone encounter Note* Telephone Encounter - Candelaria Ball LPN - 05/05/2024 3:29 PM EST Leia from [facility] calling asking for a new verbal order for PT plan of care 2 visits weekly for 4 weeks, please. Please advise [facility]02-25-2025 History of Present illness Narrative* Isi Goodman MD - 05/04/2024 11:45 AM EST Cardiology Established Outpatient Visit Reason for visit: Hx right-sided heart failure HPI: Sia Abdul is a 43 y.o. female who presents today for history of right-sided heart failure. Past medical history of right sided heart failure, Prader-Willi, morbid obesity, hypothyroidism, hypothalamic hypogonadism, lymphedema of the bilateral lower extremities, sleep apnea, mild intermittent asthma, venous insufficiency, and history of DVT. Patient was previously admitted to an outside hospital from December 26 - January 02, 2024 in the setting of 30 pound weight gain and dyspnea. Patient was managed with diuresis with IV furosemide; percaregiver 30 pounds of fluid weight was removed. Echocardiogram reportedly showed LVEF 55%, mildly dilated RV with moderate tricuspid regurgitation, and elevated RVSP of 67 mmHg. BNP on admission waselevated at 1051. EKG showed nonspecific T wave changes. CTA was performed during admission and wasnegative for pulmonary embolism. Patient was referred by her savings teller to establish care with general cardiology. Patient presented to cardiology clinic today with her caregiver on 01/20/2024. Patient's mother joined via telephone. Per caregiver patient has had interval increase in weight and lower extremity swelling, orthopnea since discharge. Current diuretic plan is p.o. furosemide 40 mg twice daily and as needed Bumex. Outside echocardiogram images are not available for my review. Recommended repeat transthoracic echocardiogram to reassess overall cardiac structure and function, degree of tricuspid regurgitation, RVSP. Given history of right sided heart failure likely secondary to obesity hypoventilation syndrome we will transition from p.o. furosemide to p.o. torsemide 20 mg twice daily (better oral bioavailability). We will uptitrate guideline directed medical therapy as tolerated. Patient presented to cardiology clinic on 03/23/2024 with her mother. Received phone call on 03/16/2024 by patient's mother. Patient was previously placed on torsemide on 01/27/2024. AT time patient wasin senior living and torsemide accidentally not initiated. Patient's mother noted that patient had interval increase in weight, dyspnea. Instructed patient's caregiver to initiate torsemide 40 mg twice daily (03/16/2024). Patient presents with her family today. Interval improvement in dyspnea and lower extremity swelling after switching to torsemide. Will continue torsemide 40 mg twice daily. Sia presents to cardiology clinic on 05/04/2024. [facility] Per patient's family occasional nonadherence to torsemide. Patient has had interval improvement with resumption of diuretic therapy. Still remains above prior dry weight. We will add metolazone 5 mg weekly and continue torsemide. Past Medical History: She has a past medical history of Adjustment disorder with mixed anxiety and depressed mood (12/14/2019). Surgical History: She has a past surgical history that includes Other surgical history (12/14/2019). Family History: - Reviewed; non-contributory Allergies: Phenytoin Social History: - Non-smoker; no illicit drug use Prior Cardiovascular Testing (personally reviewed): TTE (01/27/2024) 1. Left ventricular ejection fraction is normal, calculated by Lucas's biplane at 63%. 2. Spectral Doppler shows a Grade I (impaired relaxation pattern) of left ventricular diastolic filling with normal left atrial filling pressure. 3. There is normal right ventricular global systolic function. 4. Moderately enlarged right ventricle. 5. Mild to moderate tricuspid regurgitation visualized. 6. Aortic valve sclerosis. 7. Mildly elevated right ventricular systolic pressure. ECG (01/20/2024)- sinus rhythm; non-specific t-wave changes TTE (12/2016) 1. The left ventricular systolic function is normal with a 55-60% estimated ejection fraction. 2. RVSP 35 mmHg Review of Systems: Review of Systems Constitutional: Negative. HENT: Negative. Eyes: Negative. Cardiovascular: Positive for dyspnea on exertion and leg swelling. Negative for chest pain, near-syncope, orthopnea, palpitations, paroxysmal nocturnal dyspnea and syncope. Respiratory: Positive for shortness of breath. Endocrine: Negative. Hematologic/Lymphatic: Negative. Skin: Negative. Musculoskeletal: Negative. Gastrointestinal: Negative. Genitourinary: Negative. Neurological: Negative. Psychiatric/Behavioral: Negative. Allergic/Immunologic: Negative. Objective Outpatient Medications: Current Outpatient Medications: acetaminophen (Tylenol) 500 mg tablet, Take 2 tablets (1,000 mg) by mouth every 8 hours if needed.,Disp: , Rfl: albuterol 90 mcg/actuation inhaler, Inhale 2 puffs every 4 hours if needed., Disp: , Rfl: ammonium lactate (Amlactin) 12 % cream, APPLY TOPICALLY TO AFFECTED AREA(S) ON LEGS AT BEDTIME, Disp: , Rfl: aspirin 81 mg EC tablet, Take 1 tablet (81 mg) by mouth once daily., Disp: , Rfl: calcium carbonate-vitamin D3 500 mg-5 mcg (200 unit) tablet, Take 1 tablet by mouth 2 times daily (morning and late afternoon)., Disp: , Rfl: carvedilol (Coreg) 3.125 mg tablet, Take 1 tablet (3.125 mg) by mouth twice a day., Disp: , Rfl: Certavite-Antioxidant 18-400 mg-mcg tablet, Take 1 tablet by mouth once daily., Disp: , Rfl: clotrimazole (Lotrimin) 1 % cream, APPLY TOPICALLY TO AFFECTED AREA(S) ON BILATERAL GROIN TWICE DAILY, Disp: , Rfl: Dulera 100-5 mcg/actuation inhaler, INHALE 2 PUFFS BY MOUTH TWICE DAILY ( INSTRUCTED), Disp: , Rfl: EPINEPHrine 0.3 mg/0.3 mL injection syringe, INJECT 1 PEN INTO LATERAL THIGH DIRECTED FOR ALLERGIC REACTIONS TO BEE/WASP STINGS MAY REPEAT IN 5-15 MINUTES IF SYMPTOMS PERSIST * *STAFF REORDER, 4 DAYS IN ADVANCE*, Disp: , Rfl: fish oil concentrate (Gurdon-3) 120-180 mg capsule, Take 1 capsule (1 g) by mouth once daily., Disp:, Rfl: fluticasone (Flonase) 50 mcg/actuation nasal spray, Administer 2 sprays into each nostril once daily., Disp: , Rfl: levothyroxine (Synthroid, Levoxyl) 100 mcg tablet, take one tablet by mouth daily one hour before breakfast, Disp: , Rfl: lisinopril 5 mg tablet, Take 1 tablet (5 mg) by mouth once daily., Disp: , Rfl: nystatin (Mycostatin) 100,000 unit/gram powder, APPLY TOPICALLY TWICE DAILY TO AFFECTED AREA(S) ON ABDOMINAL FOLDS, Disp: , Rfl: ondansetron ODT (Zofran-ODT) 4 mg disintegrating tablet, dissolve 1 tablet ON TONGUE every 8 hours if needed for nausea OR vomiting, Disp: , Rfl: tirzepatide, weight loss, (Zepbound) 2.5 mg/0.5 mL injection, Inject 2.5 mg under the skin every 7 days., Disp: 4 each, Rfl: 6 tirzepatide, weight loss, (Zepbound) 5 mg/0.5 mL injection, Inject 5 mg under the skin every 7 days., Disp: 4 each, Rfl: 5 torsemide (Demadex) 20 mg tablet, Take 2 tablets (40 mg) by mouth 2 times a day., Disp: 360 tablet,Rfl: 3 desogestreL-ethinyl estradioL (Apri) 0.15-0.03 mg tablet, Take by mouth. (Patient not taking: Reported on 05/03/2024), Disp: , Rfl: Last Recorded Vitals BP 130/79 (BP Location: Left arm, Patient Position: Sitting) Pulse 63 SpO2 99% Physical Exam: Physical Exam Constitutional: General: She is not in acute distress. Appearance: She is obese. HENT: Head: Normocephalic. Mouth/Throat: Mouth: Mucous membranes are moist. Eyes: Extraocular Movements: Extraocular movements intact. Conjunctiva/sclera: Conjunctivae normal. Neck: Vascular: JVD present. No carotid bruit. Cardiovascular: Rate and Rhythm: Normal rate and regular rhythm. Pulses: Normal pulses. Heart sounds: No murmur heard. Comments: Bilateral LE lymphedema noted Pulmonary: Effort: Pulmonary effort is normal. No respiratory distress. Breath sounds: Normal breath sounds. Abdominal: General: Bowel sounds are normal. There is no distension. Palpations: Abdomen is soft. Musculoskeletal: General: No swelling. Right lower le+ Edema present. Left lower le+ Edema present. Skin: General: Skin is warm and dry. Neurological: Mental Status: She is alert. Mental status is at baseline. Cranial Nerves: No cranial nerve deficit. Motor: No weakness. Psychiatric: Mood and Affect: Mood normal. Behavior: Behavior normal. Lab Review: Lab Results Component Value Date GLUCOSE 79 03/23/2024 CALCIUM 9.3 03/23/2024 NA 139 03/23/2024 K 3.8 03/23/2024 CO2 39 (H) 03/23/2024 CL 87 (L) 03/23/2024 BUN 14 03/23/2024 CREATININE 0.55 03/23/2024 Lab Results Component Value Date CHOL 146 04/17/2020 Lab Results Component Value Date HDL 67.8 04/17/2020 No results found for: LDLCALC Lab Results Component Value Date TRIG 69 04/17/2020 Lab Results Component Value Date TSH 3.57 04/17/2020 Assessment: 43 y.o. female who presents today for history of right-sided heart failure. Past medical history ofright sided heart failure, Prader-Willi, morbid obesity, hypothyroidism, hypothalamic hypogonadism,lymphedema of the bilateral lower extremities, sleep apnea, mild intermittent asthma, venous insufficiency, and history of DVT. Sia presents to cardiology clinic on 05/04/2024. [facility]. Per patient's family occasional nonadherence to torsemide. Patient has had interval improvement with resumption of diuretic therapy. Still remains above prior dry weight. We will add metolazone 5 mg weekly and continue torsemide. Overall Plan: 1. Chronic right-sided heart failure - Likely secondary to obesity hypoventilation syndrome in setting of Prader-Willi - Treat underlying exacerbating factors - Interval improvement in volume overload on torsemide; continue p.o. torsemide 40 mg twice daily; Add metolazone 5 mg weekly (05/04/2024) - Encouraged low-sodium diet less than 2 g daily and avoidance of excessive fluid intake (less than2 L daily) 2. RV dysfunction - Likely secondary to obesity hypoventilation syndrome - Management as above 3. Prader-Willi syndrome - Follow-up as per genetics clinic 4. Morbid obesity - Discussed need for significant weight loss; agree with GLP-1 agonist - Dietary lifestyle modifications 5. 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 History of lymphedema - Continue lymphedema pumps 8. Discussed that if patient had unexplained weight gain greater than 3 pounds in 48-hour period tocontact our cardiology office for additional instructions/diuretic management Disposition: Return to cardiology clinic in 3 months Isi Goodman MD documented [facility]Bl[facility] Work Phone: 1(625) 380-765702-25-2025 Instructions* Patient Instructions* Isi Goodman MD - 05/04/2024 11:45 AM EST We are adding metolazone 5 mg once a week; continue torsemide 40 mg twice a day (morning / afternoon). We will see you back in heart clinic in ~ 6 weeks. Thank you for your visit today. Please contact our office (via [employer] or phone) with any additional questions. [facility] [place] Corinne, RODRÍGUEZ/Clinic Nurse for: Dr. Maxine Nicolas [address], [address] [place] [address] Press Option 5 then Option 3 to speak with the Clinic Nurse (Corinne) To Reach: Billing Questions - [phone] Scheduling / Rescheduling - Option 1 Refills / Medication Requests - Option 3 General Office / Biodiesel Processing Technician - Option 4 Results - Option 6 Medical Records - Option 7 Repeat Options - Option 9 documented in this encounterBlanch[facility] Work Phone: 1(160) 479-920402-24-2025 History of Present illness Narrative* Keely Ordonez MD - 05/03/2024 3:00 PM EST 44 F PMH: DACIA, hypothryroidism, right sided heart failure Coming in today for Prader Leandro evaluation, referred by genetics related to weight gain History provided by mom, patient, records She currently resides in a senior living with a visiting nurse 1) Weight Multiple hospitalization since December 2023 for heart failure Currently on 1000kcal restriction, food is managed by the home Weight has been inconsistent over the last couple of months due to fluid retention No previous meds for weight loss 2) Prader Leandro Dx Prader Leandro during childhood, genetic testing previously done and is currently following with Genetics Endocrine History: Hypogonadotropic hypogonadism On OCP-by [employer] BOX TENDER Started in her 20s Currently on norethindrone 0.35mg daily Hypothyroidism On levothyroxine since childhood Bone health -patient reports previous BMD AI Never on steroid in the past Was never on GH therapy in the past Past Medical History: Diagnosis Date Adjustment disorder with mixed anxiety and depressed mood 12/14/2019 Adjustment disorder with mixed anxiety and depressed mood No family history on file. Social History Socioeconomic History Marital status: Single Spouse name: Not on file Number of children: Not on file Years of education: Not on file Highest education level: Not on file Occupational History Not on file Tobacco Use Smoking status: Never Smokeless tobacco: Never Substance and Sexual Activity Alcohol use: Never Drug use: Never Sexual activity: Not on file Other Topics Concern Not on file Social History Narrative Not on file Social Drivers of Health Financial Resource Strain: Not on file Food Insecurity: No Food Insecurity (01/06/2024) Received from [facility] Hunger Vital Sign Worried About Running Out of Food in the Last Year: Never true Ran Out of Food in the Last Year: Never true Transportation Needs: No Transportation Needs (01/06/2024) Received from [facility] PRAPARE - Transportation Lack of Transportation (Medical): No Lack of Transportation (Non-Medical): No Physical Activity: Not on file Stress: Not on file Social Connections: Not on file Intimate Partner Violence: Not on file Housing Stability: Not on file ROS reviewed and is negative except for pertinent findings noted on HPI Physical Exam Constitutional: Comments: Microcephalic, on oxygen Neck: Comments: No goiter Abdominal: Comments: Abdominal obesity Musculoskeletal: General: Swelling present. Comments: Bilateral lower extremity swelling Skin: General: Skin is warm. Neurological: Mental Status: She is oriented to person, place, and time. Psychiatric: Mood and Affect: Mood normal. labs and imaging reviewed, pertinent findings listed on HPI and Impression Problem List Items Addressed This Visit Prader-Willi syndrome (HHS-HCC) Relevant Medications tirzepatide, weight loss, (Zepbound) 2.5 mg/0.5 mL injection tirzepatide, weight loss, (Zepbound) 5 mg/0.5 mL injection Other Relevant Orders Lipid Panel Renal Function Panel (Completed) Thyroid Stimulating Hormone (Completed) Thyroxine, Free (Completed) Cortisol AM Adrenocorticotropic Hormone (ACTH) Other Visit Diagnoses Hyperglycemia - Primary Relevant Orders POCT glycosylated hemoglobin (Hb A1C) manually resulted (Completed) Hypothyroidism, unspecified type Relevant Orders Thyroid Stimulating Hormone (Completed) Thyroxine, Free (Completed) Hyperlipidemia, unspecified hyperlipidemia type Relevant Orders Lipid Panel Class 3 severe obesity with serious comorbidity and body mass index (BMI) of 50.0 to 59.9 in adult,unspecified obesity type Relevant Medications tirzepatide, weight loss, (Zepbound) 2.5 mg/0.5 mL injection tirzepatide, weight loss, (Zepbound) 5 mg/0.5 mL injection 1) Class 3 Obesity With comorbidities, along with Hai Reeves known to have predisposing genetic factors to cause for obesity No contraindication from GIP/GLP Zepbound to titrate to 5mg weekly Will also likely benefit from SGLT2 due to hear history but will add this on at the next visit 2) Hai Reeves She needs routine Endo screening -repeat TFT, cortisol screening -she will eventually need an updated bone density but defer at this time -metabolic screening Currently resides in senior living Cont person: [facility] Clinical Manager-Shaunna Moise [phone] Next of Kin: mother Follow up next available documented in this [facility] Work Phone: 1(591) 493-843702-24-2025 Instructions* Patient Instructions* Keely Ordonez MD - 05/03/2024 3:00 PM EST Get your labs done in the morning around 8-9am, fasting from midnight Zepbound- we will send through pharmacy home delivery 2.5mg weekly for 4 weeks then increase to 5mg weekly Follow up next available Keely Ordonez MD Divison of Endocrinology [facility] option 4, then option 1 documented in this encounterBl[facility] Work Phone: 1(921) 889-430802-23-2025 [facility]02-21-2025 Telephone encounter Note* Telephone Encounter - Rafia Dennis MA - 04/30/2024 8:59 AM EST See other TE 04/29-direct care provider notified PCP office patient has been admitted to Hospital. Will close TE at this time. Rafia Dennis MA [facility]02-21-2025 Miscellaneous Notes* Telephone Encounter - Rafia Dennis MA - 04/30/2024 8:59 AM EST See other TE 04/29-direct care provider notified PCP office patient has been admitted to Hospital. Will close TE at this time. Rafia Dennis MA * Telephone Encounter - Marilee Thakur MD - 04/27/2024 5:24 PM EST She needs to go to the ER. Regards, Marilee Thakur MD * Telephone Encounter - Rah Turner RN - 04/27/2024 3:09 PM EST Enrique- [facility]- called to give pcp update on patient. Reports they tried to send patient out today- reports pt is lethargic, POX running low when Enrique was there: 90%- pt used her own POX and got 96-97%, pt having increased confusion, pt is acting off. Pt refusing weights sincelast Wed, and refusing showers and bed baths. Pt also has a left outer ankle lump and Enrique could not tell if it had fluid in it. [facility] called EMS today, they got 96% POX with patient on 4LO2, but because patient was acting off and confused EMS wanted to take patient to ER but patient refused. Enrique is notifying patient's doctors, and will call patient's tier lift truck operator next. documented in this encounterSum[facility]25 Telephone encounter Note * Telephone Encounter - Marilee Thakur MD - 04/29/2024 4:29 PM EST Noted. [facility]02-20-2025 Miscellaneous Notes* Telephone Encounter - Marilee Thakur MD - 04/29/2024 4:29 PM EST Noted. * Telephone Encounter - Pepper Walsh RN - 04/29/2024 12:18 PM EST Clarence with N ([facility]) calling to update provider that patient was seen by one oftheir nurses yesterday, pt was not acting right, squad was called, squad arrived and pt declined the squad. Pt then went to stay at her mom's. CMN nurse contacted cardiology and cardiology advised ptto go to ER, and pt was agreeable to go. Clarence reports today, per patient 's mom, patient has been admitted to [facility]. Pepper Walsh RN documented in this encounterSumma [facility]02-[facility]-2025 Telephone encounter Note * Telephone Encounter - Pepper Walsh RN - 04/29/2024 12:18 PM EST Clarence with N ([facility]) calling to update provider that patient was seen by one oftheir nurses yesterday, pt was not acting right, squad was called, squad arrived and pt declined the squad. Pt then went to stay at her mom's. CMN nurse contacted cardiology and cardiology advised ptto go to ER, and pt was agreeable to go. Clarence reports today, per patient 's mom, patient has been admitted to [facility]. Pepper Walsh, RN [facility]02-18-2025 Telephone encounter Note* Telephone Encounter - Marilee Thakur MD - 04/27/2024 5:24 PM EST She needs to go to the ER. Regards, Marilee Thakur MD [facility]02-18-2025 Telephone encounter Note* Telephone Encounter - Rah Turner RN - 04/27/2024 3:09 PM EST Enrique- [facility]- called to give pcp update on patient. Reports they tried to send patient out today- reports pt is lethargic, POX running low when Enrique was there: 90%- pt used her own POX and got 96-97%, pt having increased confusion, pt is acting off. Pt refusing weights sincelast Wed, and refusing showers and bed baths. Pt also has a left outer ankle lump and Enrique could not tell if it had fluid in it. [facility] called EMS today, they got 96% POX with patient on 4LO2, but because patient was acting off and confused EMS wanted to take patient to ER but patient refused. Enrique is notifying patient's doctors, and will call patient's tier lift truck operator next. [facility]02-17-2025 Telephone encounter Note* Telephone Encounter - María Avila MA - 04/26/2024 12:43 PM EST Shobha, dining manager notified. Please assist in scheduling repeat CT. [facility]02-17-2025 Miscellaneous Notes* Telephone Encounter - María Avila MA - 04/26/2024 12:43 PM EST Shobha, dining manager notified. Please assist in scheduling repeat CT. * Telephone Encounter - Mika Kaplan APRN.CNP - 04/21/2024 2:28 PM EST Unsure on what the spots/lumps to abdomen are. Will repeat Ultrasound in 4-6 weeks to revaluate this. Thank you Mika Kaplan APRN.CNP documented in this encounterSum[facility]02-12-2025 Telephone encounter Note * Telephone Encounter - Mika Kaplan APRN.CNP - 04/21/2024 2:28 PM EST Unsure on what the spots/lumps to abdomen are. Will repeat Ultrasound in 4-6 weeks to revaluate this. Thank you Mika Kaplan APRN.CNP [facility]02-05-[facility] History of Present illness Narrative* Pily Lynch RDMS - 04/14/2024 10:00 AM EST Radiology Service Progress Note PATIENT NAME: Sia Abdul DATE OF SERVICE: April 14, 2024 TIME: 2:54 PM PATIENT IDENTITY VERIFICATION COMPLETED USING TWO (2) IDENTIFIERS: Name and Date of confirmedby patient verbally. FALL SCREENING: Has the patient had 2 falls in the last year or 1 fall with injury or currently using an Ambulatory Assistive Device (Walker, Cane, Wheelchair, Crutches, etc.)? Yes, Patient High Riskfor Falls What interventions were put in place to prevent falls during this visit? Instructed Patient to Callfor Help if Needed, Offered Assistance with Transfers/Clothing, Instructed Patient to Remain Seated(Not on Exam Table) Until Exam, Increased Observations by Caregivers, and Escorted to/from Restroom PATIENT GENDER DATA: Assigned female at . status: : No status:NO. PATIENT RELEVANT IMPLANT DATA REVIEWED: Not Applicable PATIENT PRESENTS WITH AN IMPLANTABLE OR ATTACHED BRIM WELT SEWING MACHINE OPERATOR: No RADIOLOGY DEPARTMENT: Ultrasound PERIPHERAL IV DATA: Not applicable SIGNED BY: Pily Lynch RDMS [facility] April 14, 2024 2:54 PM documented in this encounterSumma Health Barber[facility]02-05-2025 NoteHNO ID: [id number] Author: PILY LYNCH RDMS Service: ? Author Type: Rolled Glass Crosscutter Type: Progress Notes Filed: 04/14/2024 14:54 Note Text: Radiology Service Progress Note PATIENT NAME: Sia Abdul DATE OF SERVICE: April 14, 2024 TIME: 2:54 PM PATIENT IDENTITY VERIFICATION COMPLETED USING TWO (2) IDENTIFIERS: Name and Date of confirmed by patient verbally. FALL SCREENING: Has the patient had 2 falls in the last year or 1 fall with injury or currently using an Ambulatory Assistive Device (Walker, Cane, Wheelchair, Crutches, etc.)? Yes, Patient High Risk for Falls What interventions were put in place to prevent falls during this visit? Instructed Patient to Call for Help if Needed, Offered Assistance with Transfers/Clothing, Instructed Patient to Remain Seated (Not on Exam Table) Until Exam, Increased Observations by Caregivers, and Escorted to/from Restroom PATIENT GENDER DATA: Assigned female at . status: : No status: NO. PATIENT RELEVANT IMPLANT DATA REVIEWED: Not Applicable PATIENT PRESENTS WITH AN IMPLANTABLE OR ATTACHED BRIM WELT SEWING MACHINE OPERATOR: No RADIOLOGY DEPARTMENT: Ultrasound PERIPHERAL IV DATA: Not applicable SIGNED BY: Pily Lynch RDMS RVT April 14, 2024 2:54 [facility]02-03-2025 Telephone encounter Note* Telephone Encounter - Marilee Thakur MD - 04/12/2024 5:32 PM EST Noted [facility]02-03-2025 Miscellaneous Notes* Telephone Encounter - Marilee Thakur MD - 04/12/2024 5:32 PM EST Noted * Telephone Encounter - Rah Turner RN - 04/12/2024 12:46 PM EST Emery asking pcp to discontinue the Dulera since it is no longer covered by insurance and the Breo Ellipta was sent in it's place since insurance does cover Breo. Emery is going to go ahead and discontinue the dulera on their end. documented in this encounterSumma Health [facility]02-03-2025 Telephone encounter Note * Telephone Encounter - Rah Turner RN - 04/12/2024 12:46 PM EST Emery asking pcp to discontinue the Dulera since it is no longer covered by insurance and the Breo Ellipta was sent in it's place since insurance does cover Breo. Emery is going to go ahead and discontinue the dulera on their end. [facility]02-03-[facility] Telephone encounter Note* Telephone Encounter - Morena Kearney MA - 04/12/2024 11:55 AM EST PA for Breo is approved Authorization number: [id number] Authorized from April 12, 2024 to April 11, 2025 Morena Kearney MA [facility]02-03-2025 Miscellaneous Notes* Telephone Encounter - Morena Kearney MA - 04/12/2024 11:55 AM EST PA for Breo is approved Authorization number: [id number] Authorized from April 12, 2024 to April 11, 2025 Morena Kearney MA * Telephone Encounter - Marilee Thakur MD - 04/09/2024 5:14 PM EST Well I ordered the breo and it still says that prior auth is needed. Regards, Marilee Thakur MD * Telephone Encounter - Morena Kearney MA - 04/09/2024 1:35 PM EST Insurance mailed letter stating Dulera is no longer on formulary. Formulary covered alternatives are -Breo Ellipta -Breyna -Advair HFA Please choose alternative and send. Patient caregiver is aware alternative will be sent. Please have staff fax phone note to number below showing new inhaler Morena Kearney MA documented in this encounterSumma Health [facility]01-31-2025 Telephone encounter Note * Telephone Encounter - Marilee Thakur MD - 04/09/2024 5:14 PM EST Well I ordered the breo and it still says that prior auth is needed. Regards, Marilee Thakur MD [facility]01-31-2025 Telephone encounter Note* Telephone Encounter - Morena Kearney MA - 04/09/2024 1:35 PM EST Insurance mailed letter stating Dulera is no longer on formulary. Formulary covered alternatives are -Breo Ellipta -Breyna -Advair HFA Please choose alternative and send. Patient caregiver is aware alternative will be sent. Please have staff fax phone note to number below showing new inhaler Morena Kearney MA [facility]01-31-[facility] Telephone encounter Note* Telephone Encounter - Teresa Ferrera RN - 04/09/2024 12:56 PM EST Shobha Dallas with [facility] called and is notified of providers message and instructions. She voices understanding. She asked if we could fax the new prescription to the nurse Rafia at fax # [phone]. Rx faxed. Teresa Ferrera RN [facility]01-31-2025 Miscellaneous Notes* Telephone Encounter - Teresa Ferrera RN - 04/09/2024 12:56 PM EST Shobha Dallas with [facility] called and is notified of providers message and instructions. She voices understanding. She asked if we could fax the new prescription to the nurse Rafia at fax # [phone]. Rx faxed. Teresa Ferrera RN * Telephone Encounter - Marilee Thakur MD - 04/09/2024 12:23 PM EST More demadex was sent to the pharmacy. RegardsMarilee MD * Telephone Encounter - Lacie Reyes LPN - 04/08/2024 4:26 PM EST When I spoke to nurse Clarence islas she is taking 40mg 2 times a day currently. Lacie Reyes LPN April 08, 2024 4:26 PM * Telephone Encounter - Marilee Thakur MD - 04/08/2024 1:47 PM EST Can you confirm how much of demadex she is taking right now? Regards, Marilee Ganta MD * Telephone Encounter - Lacie Reyes LPN - 04/08/2024 9:29 AM EST Called and spoke to Clarence the nurse caring for patient, Clarence asking, please send demadex order to [facility] pharmacy with new directions. Dosage change Thank you. Lacie Reyes LPN * Telephone Encounter - Marilee Thakur MD - 04/07/2024 1:04 PM EST Ok I see that he is taking the demadex, so should continue it , could take an extra if needed Marilee Lassiter MD * Telephone Encounter - Eulalia Laureano RN - 04/06/2024 10:59 AM EST Enrique Mckenna with [facility] calls with update. Enrique reports that patients weight today is 293.2 lbs (weighed patient twice). Yesterday patient weight was 282 lbs. Enrique reports no visible increase in edema noted. Lungs are clear and heart sounds good. Patient denies SOB. BP 141/92 and HR 73. Only thing patient has done different is she ate a late dinner last night around 1130 pm which isn't typical for patient. 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 Eulalia Laureano, RODRÍGUEZ documented in this encounterSumma Health [facility]01-31-2025 Telephone encounter Note * Telephone Encounter - Marilee Thakur MD - 04/09/2024 12:23 PM EST More demadex was sent to the pharmacy. Marilee Lassiter MD [facility]01-30-2025 Telephone encounter Note* Telephone Encounter - Eric LacieJORDAN - 04/08/2024 4:26 PM EST When I spoke to nurse Clarence stated she is taking 40mg 2 times a day currently. Lacie EricJORDAN April 08, 2024 4:26 PM [facility]01-30-[facility] Telephone encounter Note* Telephone Encounter - María Avila MA - 04/08/2024 2:40 PM EST Leia notified. [facility]01-30-2025 Miscellaneous Notes* Telephone Encounter - María Avila MA - 04/08/2024 2:40 PM EST Leia notified. * Telephone Encounter - Marilee Thakur MD - 04/08/2024 1:54 PM EST Verbal ok for the same Regards, Marilee Thakur MD * Telephone Encounter - Pamela Singh LPN - 04/08/2024 1:47 PM EST Leia with [facility], [facility] called to let you know they need to re- cert pt for 04/13/24 and would like to see pt 2 times week for 4 weeks. dx Prader Willi Syndrome and Acute chronic diastolic congestive heart failure. Please call Leia back with verbal order. Okay to leave a detailed message. Pamela Singh LPN documented in this encounterSumma Health [facility]01-30-2025 Telephone encounter Note * Telephone Encounter - Marilee Thakur MD - 04/08/2024 1:54 PM EST Verbal ok for the same Regards, Marilee Thakur MD [facility]01-30-2025 Telephone encounter Note* Telephone Encounter - Marilee Thakur MD - 04/08/2024 1:47 PM EST Can you confirm how much of demadex she is taking right now? Regards, Marilee Thakur MD [facility]01-30-2025 Telephone encounter Note* Telephone Encounter - Pamela Singh LPN - 04/08/2024 1:47 PM EST Leia with [facility], [facility] called to let you know they need to re- cert pt for 04/13/24 and would like to see pt 2 times week for 4 weeks. dx Prader Willi Syndrome and Acute chronic diastolic congestive heart failure. Please call Leia back with verbal order. Okay to leave a detailed message. Pamela Singh LPN [facility]01-30-2025 Telephone encounter Note* Telephone Encounter - Lacie Reyes LPN - 04/08/2024 9:29 AM EST Called and spoke to Clarence the nurse caring for patient, Clarence asking, please send demadex order to [facility] pharmacy with new directions. Dosage change Thank you. Lacie Reyes LPN [facility]01-29-2025 Telephone encounter Note* Telephone Encounter - Marilee Thakur MD - 04/07/2024 1:04 PM EST Ok I see that he is taking the demadex, so should continue it , could take an extra if needed Regards, Marilee Thakur MD [facility]01-28-2025 Telephone encounter Note* Telephone Encounter - Eulalia Laureano RN - 04/06/2024 10:59 AM EST Enrique Mckenna with [facility] calls with update. Enrique reports that patients weight today is 293.2 lbs (weighed patient twice). Yesterday patient weight was 282 lbs. Enrique reports no visible increase in edema noted. Lungs are clear and heart sounds good. Patient denies SOB. BP 141/92 and HR 73. Only thing patient has done different is she ate a late dinner last night around 1130 pm which isn't typical for patient. 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 Eulalia Laureano RN [facility]01-28-2025 NoteHNO ID: [id number] Author: HILDA JEONG, DO Service: ? Author Type: Physician Type: Progress Notes Filed: 04/06/2024 12:56 Note Text: [facility] [place] DEPARTMENT OF VASCULAR SURGERY OUTPATIENT VISIT DATE April 06, 2024 OUTPATIENT VISIT TYPE CONSULTATION SERVICE DATE: 04/06/2024 SERVICE TIME: 9:43 AM PRIMARY CARE PHYSICIAN: Marilee Thakur MD REFERRING PROVIDER: Marilee Thakur [address] [facility] [id number] Consult requested for an opinion regarding the evaluation and treatment of the above. My final impression and recommendations will be communicated back to the requesting physician by way of the shared medical record or letter via [place] mail. CHIEF COMPLAINT: Patient presents with: New Patient History of Present Illness: Patient is a 43 year old Black female presenting for consultation, evaluation and possible treatment of leg edema.bilateral throbbing, heaviness, and edema. She was previously seen by Dr. Hirsch. She has known lymphedema and recently diagnosed with CHF. She has been having difficulty with managing her weight and fluid status. Predisposing factors included not significant. No specific history of injury or prior problems. Relieving factors include elevation of legs with mild improvement in symptoms. Patient denies DVT, phlebitis, and treatment with blood thinners. PAIN ASSESSMENT: PAIN EVALUATION No data found in the last 1 encounters. 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 NONE SOCIAL HISTORY: Social History Tobacco Use Smoking status: Never Smokeless tobacco: Never Substance Use Topics Alcohol use: No Drug use: No FAMILY HISTORY Problem Relation Age of Onset Diabetes Maternal Grandmother MEDICATIONS: IRAIDA 0.35 mg tablet Take 1 tablet by mouth once daily. EPINEPHrine (EPIPEN) 0.3 mg/0.3 mL auto-injector INJECT 1 PEN INTO LATERAL THIGH DIRECTED FOR ALLERGIC REACTIONS TO BEE/WASP STINGS MAY REPEAT IN 5-15 MINUTES IF SYMPTOMS PERSIST * *STAFF REORDER, 4 DAYS IN ADVANCE* torsemide (DEMADEX) 20 mg tablet Take 2 tablets by mouth two times a day. MEDICAL SUPPLY Lymphedema compression pump to both legs 1 hour daily. 60 mm Hg. New machine. mometasone-formoterol (DULERA) 100-5 mcg/actuation inhaler Inhale 2 Puffs as instructed two times a day. fluticasone (FLONASE) 50 mcg/actuation nasal spray INSTILL 2 SPRAYS IN EACH NOSTRIL DAILY diphenoxylate-atropine (LOMOTIL) 2.5-0.025 mg per tablet Take 1 tablet by mouth four times a day as needed. ondansetron (ZOFRAN) 4 mg tablet Take by mouth every 8 hours as needed for nausea/vomiting. aspirin 81 mg chewable tablet Take 81 mg by mouth once daily. carvedilol (COREG) 3.125 mg tablet Take 1 tablet by mouth two times a day. ammonium lactate (LAC-HYDRIN) 12 % cream APPLY TOPICALLY TO AFFECTED AREA(S) ON LEGS AT BEDTIME multivitamin-ferrous fumarate-folic acid (CERTAVITE-ANTIOXIDANT) Take 1 tablet by mouth once daily. Gmdtt-8-WNB-EPA-Fish Oil 1,000 mg (120 mg-180 mg) cap Take 1 capsule by mouth once daily. levothyroxine (SYNTHROID) 100 mcg tablet take one tablet by mouth daily one hour before breakfast nystatin (NYAMYC) powder APPLY TOPICALLY TWICE DAILY TO AFFECTED AREA(S) ON ABDOMINAL FOLDS OYSTER SHELL CALCIUM-VITAMIN D 500 mg-5 mcg (200 unit) per tablet take one tablet by mouth twice daily with meals clotrimazole (LOTRIMIN) 1 % cream APPLY TOPICALLY TO AFFECTED AREA(S) ON BILATERAL GROIN TWICE DAILY (Patient taking differently: as needed. APPLY TOPICALLY TO AFFECTED AREA(S) ON BILATERAL GROIN TWICE DAILY) albuterol HFA (VENTOLIN HFA) 90 mcg/actuation inhaler Inhale 2 Puffs as instructed every 4 hours as needed for wheezing/shortness of breath. acetaminophen (TYLENOL EXTRA STRENGTH) 500 mg tablet Take 2 tablets by mouth every 8 hours as needed for pain (For knee pain). Gauze Bandage 2 X 2 bndg Apply 1 application to affected area twice daily. cetirizine (ZYRTEC) 10 mg tablet Take 1 tablet by mouth once daily. COMPOUNDED PRESCRIPTION 1 Each once daily. Custom 20-30mmHg knee high compression stockings. Dx: Recurren (more content not included)...[facility]01-28-2025 History of Present illness Narrative* Hilda Jeong, DO - 04/06/2024 9:43 AM EST Images from the original note were not included. [facility] [place] DEPARTMENT OF VASCULAR SURGERY OUTPATIENT VISIT DATE April 06, 2024 OUTPATIENT VISIT TYPE CONSULTATION SERVICE DATE: 04/06/2024 SERVICE TIME: 9:43 AM PRIMARY CARE PHYSICIAN: Marilee Thakur MD REFERRING PROVIDER: Marilee Thakur [address] [facility] [address] Consult requested for an opinion regarding the evaluation and treatment of the above. My final impression and recommendations will be communicated back to the requesting physician by way of the shared medical record or letter via US mail. CHIEF COMPLAINT: Patient presents with: New Patient History of Present Illness: Patient is a 43 year old Black female presenting for consultation, evaluation and possible treatment of leg edema.bilateral throbbing, heaviness, and edema. She was previously seen by Dr. Hirsch. Erikas known lymphedema and recently diagnosed with CHF. She has been having difficulty with managing her weight and fluid status. Predisposing factors included not significant. No specific history of injury or prior problems. Relieving factors include elevation of legs with mild improvement in symptoms. Patient denies DVT, phlebitis, and treatment with blood thinners. PAIN ASSESSMENT: PAIN EVALUATION No data found in the last 1 encounters. 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 NONE SOCIAL HISTORY: Social History Tobacco Use Smoking status: Never Smokeless tobacco: Never Substance Use Topics Alcohol use: No Drug use: No FAMILY HISTORY Problem Relation Age of Onset Diabetes Maternal Grandmother MEDICATIONS: IRAIDA 0.35 mg tablet Take 1 tablet by mouth once daily. EPINEPHrine (EPIPEN) 0.3 mg/0.3 mL auto-injector INJECT 1 PEN INTO LATERAL THIGH DIRECTED FOR ALLERGIC REACTIONS TO BEE/WASP STINGS MAY REPEAT IN 5-15 MINUTES IF SYMPTOMS PERSIST * *STAFF REORDER,4 DAYS IN ADVANCE* torsemide (DEMADEX) 20 mg tablet Take 2 tablets by mouth two times a day. MEDICAL SUPPLY Lymphedema compression pump to both legs 1 hour daily. 60 mm Hg. New machine. mometasone-formoterol (DULERA) 100-5 mcg/actuation inhaler Inhale 2 Puffs as instructed two times aday. fluticasone (FLONASE) 50 mcg/actuation nasal spray INSTILL 2 SPRAYS IN EACH NOSTRIL DAILY diphenoxylate-atropine (LOMOTIL) 2.5-0.025 mg per tablet Take 1 tablet by mouth four times a day asneeded. ondansetron (ZOFRAN) 4 mg tablet Take by mouth every 8 hours as needed for nausea/vomiting. aspirin 81 mg chewable tablet Take 81 mg by mouth once daily. carvedilol (COREG) 3.125 mg tablet Take 1 tablet by mouth two times a day. ammonium lactate (LAC-HYDRIN) 12 % cream APPLY TOPICALLY TO AFFECTED AREA(S) ON LEGS AT BEDTIME multivitamin-ferrous fumarate-folic acid (CERTAVITE-ANTIOXIDANT) Take 1 tablet by mouth once daily. Gwotf-4-RHL-EPA-Fish Oil 1,000 mg (120 mg-180 mg) cap Take 1 capsule by mouth once daily. levothyroxine (SYNTHROID) 100 mcg tablet take one tablet by mouth daily one hour before breakfast nystatin (NYAMYC) powder APPLY TOPICALLY TWICE DAILY TO AFFECTED AREA(S) ON ABDOMINAL FOLDS OYSTER SHELL CALCIUM-VITAMIN D 500 mg-5 mcg (200 unit) per tablet take one tablet by mouth twice daily with meals clotrimazole (LOTRIMIN) 1 % cream APPLY TOPICALLY TO AFFECTED AREA(S) ON BILATERAL GROIN TWICE DAILY (Patient taking differently: as needed. APPLY TOPICALLY TO AFFECTED AREA(S) ON BILATERAL GROIN TWICE DAILY) albuterol HFA (VENTOLIN HFA) 90 mcg/actuation inhaler Inhale 2 Puffs as instructed every 4 hours asneeded for wheezing/shortness of breath. acetaminophen (TYLENOL EXTRA STRENGTH) 500 mg tablet Take 2 tablets by mouth every 8 hours as needed for pain (For knee pain). Gauze Bandage 2 X 2 bndg Apply 1 application to affected area twice daily. cetirizine (ZYRTEC) 10 mg tablet Take 1 [...] 8pm and q Fri at 4pm Dx:Q87.1 ALLERGIES: ALLERGIES Allergen Reactions Bee Sting Anaphylaxis Bumex [Bumetanide] Diarrhea, Other: See Comments chula Ghulam [Phenytoin* REVIEW of SYSTEMS: Constitutional: No weight loss, malaise or fevers. HEENT: Negative for frequent or significant headaches, No changes in hearing or vision, no nose bleeds or other nasal problems Respiratory: Negative for cough, wheezing, or shortness of breath Cardiovascular: Negative for chest pain and palpitations and Positive for leg swelling Gatrointestinal: Negative for abdominal discomfort, blood in stools or black stools or change in bowel habits Genitourinary: No difficulty urination, nocturia >1 times per night or hematuria Musculoskeletal: Positive for joint pain Endocrine: Negative for cold or heat intolerance, polyuria, polydipsia and goiter Hematology/Lymphatic: Positive for bruises easily Neurologic: No history or headaches, syncope, paralysis, seizures or tremors Integumentary: Negative for lesions, rash, and itching. PHYSICAL EXAM: VITALS: [facility] 05/13/2007 General: Alert, oriented, cooperative, healthy appearance Integumentary: Normal color, no rash, no lesions. HEENT: EOM, pupils equal, round and reactive. Cardiovascular: Pulse regular. Lungs: No chest deformities or chest wall tenderness. Abdomen: Not examined Extremities: Edema Neurological: AAOx3. Normal cognition and motor skills. Diagnostic tests reviewed for today's visit: Most recent labs Most recent imaging IMPRESSION: Ms. Abdul is a 43 year old female with primary lymphedema . PLAN and RECOMMENDATIONS: Agree with continued use of compression Continue exercise and weight loss as tolerated Follow up in 6 months or sooner with any concerns SIGNATURE: Hilda Jeong DO PATIENT NAME: Sia Abdul DATE: April 06, 2024 TIME: 9:43 AM documented in this encounterSumma Health [facility]01-24-2025 Telephone encounter Note * Telephone Encounter - Candelaria Ball LPN - 04/02/2024 9:37 AM EST Phoned Clarence and went over notes below from Mika Kaplan INDUSTRIAL LABORER with understanding. [facility]01-24-2025 Miscellaneous Notes* Telephone Encounter - Candelaria Ball LPN - 04/02/2024 9:37 AM EST Phoned Clarence and went over notes below from Mika Kaplan INDUSTRIAL LABORER with understanding. * Telephone Encounter - Mika Kaplan APRN.CNP - 04/02/2024 9:12 AM EST Agree with need for these services and agree to follow Mika Kaplan APRN.CNP * Telephone Encounter - Pepper Walsh RN - 04/02/2024 8:26 AM EST Clarence, a nurse with [facility] is calling to ask if provider will approve re certification for retirement, PT and OT services for patient. Clarence would like a call back with provider's approval, . Pepper Walsh RN documented in this encounterSumma Health [facility]01-24-2025 Telephone encounter Note * Telephone Encounter - Mika Kaplan APRN.CNP - 04/02/2024 9:12 AM EST Agree with need for these services and agree to follow Mika Kaplan APRN.CNP [facility]01-24-2025 Telephone encounter Note* Telephone Encounter - Pepper Walsh RN - 04/02/2024 8:26 AM EST Clarence, a [facility] with [facility] [facility] is calling to ask if provider will approve re certification for retirement, PT and OT services for patient. Clarence would like a call back with provider's approval, . Pepper Wurst, RN [facility]01-23-2025 NoteHNO ID: [id number] Author: MIKA KAPLAN APRN.MANAGER HOTEL Service: ? Author Type: Nurse Practitioner Type: Progress Notes Filed: 04/01/2024 11:48 Note Text: CC: Patient presents with: Physical: Physical HPI Sia Abdul is a 43 year old female who presents today for annual physical exam but has had multiple hospitalizations recently with some concerns. CHF with recent mx hospitalizations with med changes: Edema and shortness of breath is improving. Has started to have more eneryg and miladis states she has been dancing for the past few days. Patient reports she is feeling much better.Ms. Abdul indicates that she is feeling well and denies any symptoms referable to elevated blood pressure. Specifically denies headache, chest pain, palpitations, and dyspnea. Patient denies any side effects of her medication(s) and is compliant with their regimen. She does check BP's away from this office with average BP's in the 90s/70s range. Last 3 Encounter BP Readings: Date: BP: 04/01/2024 122/80 03/12/2024 116/85 02/16/2024 78/58 Mother reports a tinge of blood on the toilet paper with urination. Per patient is sometimes williamson when she urinates. Miladis reports that in the last hospitalization she was noted to have a prolapsed uterus. No on continuous oxygen at 2 L during the day and 4L at night time. Denies difficulty urinating, abdominal pain, fever, or chills. Diet: Watches diet for salt (salty snacks, added salt, processed frozen/canned foods), sugary/sweet snacks, unhealthy fats: Yes Caffeine: 2 cups on average Water intake: on a fluid restriction of 6 cups total of fluid a day along with a sodium restriction. Hypothyroidism: Taking medication as ordered. No recent TSH Patient also concerned with 2 small lumps she noticed a few weeks ago. Areas not tender red and not getting large. Just noticed after losing a lot of weight weight. 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 NONE ALLERGIES Bee Sting, Bumex [Bumetanide], and Dilantin [Phenytoin Sodium Extended] MEDICATIONS IRAIDA 0.35 mg tablet Take 1 tablet by mouth once daily. EPINEPHrine (EPIPEN) 0.3 mg/0.3 mL auto-injector INJECT 1 PEN INTO LATERAL THIGH DIRECTED FOR ALLERGIC REACTIONS TO BEE/WASP STINGS MAY REPEAT IN 5-15 MINUTES IF SYMPTOMS PERSIST * *STAFF REORDER, 4 DAYS IN ADVANCE* torsemide (DEMADEX) 20 mg tablet Take 2 tablets by mouth two times a day. MEDICAL SUPPLY Lymphedema compression pump to both legs 1 hour daily. 60 mm Hg. New machine. mometasone-formoterol (DULERA) 100-5 mcg/actuation inhaler Inhale 2 Puffs as instructed two times a day. fluticasone (FLONASE) 50 mcg/actuation nasal spray INSTILL 2 SPRAYS IN EACH NOSTRIL DAILY diphenoxylate-atropine (LOMOTIL) 2.5-0.025 mg per tablet Take 1 tablet by mouth four times a day as needed. ondansetron (ZOFRAN) 4 mg tablet Take by mouth every 8 hours as needed for nausea/vomiting. aspirin 81 mg chewable tablet Take 81 mg by mouth once daily. carvedilol (COREG) 3.125 mg tablet Take 1 tablet by mouth two times a day. ammonium lactate (LAC-HYDRIN) 12 % cream APPLY TOPICALLY TO AFFECTED AREA(S) ON LEGS AT BEDTIME multivitamin-ferrous fumarate-folic acid (CERTAVITE-ANTIOXIDANT) Take 1 tablet by mouth once daily. Ncbgc-1-SGC-EPA-Fish Oil 1,000 mg (120 mg-180 mg) cap Take 1 capsule by mouth once daily. levothyroxine (SYNTHROID) 100 mcg tablet take one tablet by mouth daily one hour before breakfast nystatin (NYAMYC) powder APPLY TOPICALLY TWICE DAILY TO AFFECTED AREA(S) ON ABDOMINAL FOLDS OYSTER SHELL CALCIUM-VITAMIN D 500 mg-5 mcg (200 unit) per tablet take one tablet by mouth twice daily with meals clotrimazole (LOTRIMIN) 1 % cream APPLY TOPICALLY TO AFFECTED AREA(S) ON BILATERAL GROIN TWICE DAILY (Patient taking differently: as needed. APPLY TOPICALLY TO AFFECTED AREA(S) ON BILATERAL GROIN TWICE DAILY) albuterol HFA (VENTOLIN HFA) 90 mcg/actuation inhaler Inhale 2 Puffs as instructed every 4 hours as needed for wheezing/shortness of breath. acetaminophen (TYLENOL EXTRA STRENGTH) 500 mg tablet Take 2 tablets by mouth every 8 hours as needed for pain (For knee pain). Gauze Bandage 2 X 2 bndg Apply 1 application t (more content not included)... [facility]01-23-2025 History of Present illness Narrative* Mika Kaplan APRN.MANAGER HOTEL - 04/01/2024 11:00 AM EST CC: Patient presents with: Physical: Physical HPI Sia Abdul is a 43 year old female who presents today for annual physical exam but has had multiple hospitalizations recently with some concerns. CHF with recent mx hospitalizations with med changes: Edema and shortness of breath is improving. Has started to have more eneryg and aide states she has been dancing for the past few days. Patient reports she is feeling much better.Ms. Abdul indicates that she is feeling well and denies any symptoms referable to elevated blood pressure. Specifically denies headache, chest pain, palpitations, and dyspnea. Patient denies any side effects of her medication(s) and is compliant with their regimen. She does check BP's away from this office with average BP's in the 90s/70s range. Last 3 Encounter BP Readings: Date: BP: 04/01/2024 122/80 03/12/2024 116/85 02/16/2024 78/58 Mother reports a tinge of blood on the toilet paper with urination. Per patient is sometimes williamson when she urinates. Aide reports that in the last hospitalization she was noted to have a prolapsed uterus. No on continuous oxygen at 2 L during the day and 4L at night time. Denies difficulty urinating, abdominal pain, fever, or chills. Diet: Watches diet for salt (salty snacks, added salt, processed frozen/canned foods), sugary/sweetsnacks, unhealthy fats: Yes Caffeine: 2 cups on average Water intake: on a fluid restriction of 6 cups total of fluid a day along with a sodium restriction. Hypothyroidism: Taking medication as ordered. No recent TSH Patient also concerned with 2 small lumps she noticed a few weeks ago. Areas not tender red and notgetting large. Just noticed after losing a lot of weight weight. 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 NONE ALLERGIES Bee Sting, Bumex [Bumetanide], and Dilantin [Phenytoin Sodium Extended] MEDICATIONS IRAIDA 0.35 mg tablet Take 1 tablet by mouth once daily. EPINEPHrine (EPIPEN) 0.3 mg/0.3 mL auto-injector INJECT 1 PEN INTO LATERAL THIGH DIRECTED FOR ALLERGIC REACTIONS TO BEE/WASP STINGS MAY REPEAT IN 5-15 MINUTES IF SYMPTOMS PERSIST * *STAFF REORDER,4 DAYS IN ADVANCE* torsemide (DEMADEX) 20 mg tablet Take 2 tablets by mouth two times a day. MEDICAL SUPPLY Lymphedema compression pump to both legs 1 hour daily. 60 mm Hg. New machine. mometasone-formoterol (DULERA) 100-5 mcg/actuation inhaler Inhale 2 Puffs as instructed two times aday. fluticasone (FLONASE) 50 mcg/actuation nasal spray INSTILL 2 SPRAYS IN EACH NOSTRIL DAILY diphenoxylate-atropine (LOMOTIL) 2.5-0.025 mg per tablet Take 1 tablet by mouth four times a day asneeded. ondansetron (ZOFRAN) 4 mg tablet Take by mouth every 8 hours as needed for nausea/vomiting. aspirin 81 mg chewable tablet Take 81 mg by mouth once daily. carvedilol (COREG) 3.125 mg tablet Take 1 tablet by mouth two times a day. ammonium lactate (LAC-HYDRIN) 12 % cream APPLY TOPICALLY TO AFFECTED AREA(S) ON LEGS AT BEDTIME multivitamin-ferrous fumarate-folic acid (CERTAVITE-ANTIOXIDANT) Take 1 tablet by mouth once daily. Wkcun-1-LKU-EPA-Fish Oil 1,000 mg (120 mg-180 mg) cap Take 1 capsule by mouth once daily. levothyroxine (SYNTHROID) 100 mcg tablet take one tablet by mouth daily one hour before breakfast nystatin (NYAMYC) powder APPLY TOPICALLY TWICE DAILY TO AFFECTED AREA(S) ON ABDOMINAL FOLDS OYSTER SHELL CALCIUM-VITAMIN D 500 mg-5 mcg (200 unit) per tablet take one tablet by mouth twice daily with meals clotrimazole (LOTRIMIN) 1 % cream APPLY TOPICALLY TO AFFECTED AREA(S) ON BILATERAL GROIN TWICE DAILY (Patient taking differently: as needed. APPLY TOPICALLY TO AFFECTED AREA(S) ON BILATERAL GROIN TWICE DAILY) albuterol HFA (VENTOLIN HFA) 90 mcg/actuation inhaler Inhale 2 Puffs as instructed every 4 hours asneeded for wheezing/shortness of breath. acetaminophen (TYLENOL EXTRA STRENGTH) 500 mg tablet Take 2 tablets by mouth every 8 hours as needed for pain (For knee pain). Gauze Bandage 2 X 2 bndg Apply 1 application to affected area twice daily. cetirizine (ZYRTEC) 10 mg tablet Take 1 [...] No Drug use: No PHYSICAL EXAM BP 122/80 Pulse 72 Resp 16 Wt 127.5 kg (281 lb) LMP 05/13/2007 SpO2 93% BMI 61.89 kg/m General Appearance: well appearing, in no acute distress, alert Eyes: conjunctiva pink and moist, no icterus, sclera white, non-injected Lungs: Lungs clear to auscultation. No wheezing, rhonchi, rales. Heart: RRR without murmur, gallop, or rubs. No ectopy Abdomen: Abdomen soft, non-tender. Bowel sounds normal. No organomegaly, 2 small firm non-tender masses to soft tissue of left side of abdomen. Spirometry Never done Depression Screening Never done Anxiety Screening Never done Hepatitis B Vaccine(1 of 3 - 19+ 3-dose series) Never done Pneumococcal Vaccine(2 of 2 - PCV) due on 04/11/2007 Alpha-1 Antitrypsin Deficiency Screening Never done Covid-19 Vaccine( season) due on 11/09/2023 Mammogram Screening due on 07/03/2024 DTaP,Tdap,Td Vaccine(2 - Td or Tdap) due on 01/09/2025 Annual PCP Team Chronic Disease Visit due on 03/12/2025 Cervical Cancer Screening due on 05/22/2026 Influenza Vaccine Completed Hepatitis C Screening Completed HIV Screening Completed HPV Vaccine Aged Out ASSESSMENT/PLAN: 1. Acquired hypothyroidism - ICD9: 244.9, ICD10: E03.9 (primary diagnosis) asymptomatic - Instructed patient on importance of taking on an empty stomach either first thing in the morning or at bedtime. - THYROID STIMULATING HORMONE 2. 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) - ICD9: 428.0, ICD10: I50.814 Stable at this time Continue with current medications and recommendations by cardiology - COMPLETE BLOOD COUNT 3. Dysuria - ICD9: 788.1, ICD10: R30.0 acute - positive for blood so will send for further evaluation including culture, will treat if indicated - UA DIP, URINE (POC) 4. Abdominal mass, unspecified abdominal location - ICD9: 789.30, ICD10: R19.00 Probable lipoma but will further evaluate. - US SOFT TISSUE ABDOMEN 5. On home oxygen therapy - ICD9: V46.2, ICD10: Z99.81 Stable on current treatment of 2L during day and 4L at night 6. Uterine prolapse - ICD9: 618.1, ICD10: N81.4 - diagnosed with this in recent hospitalization, no evaluated in this visit. Contact your general ii farmworker for further evaluation 7. Hematuria, unspecified type - ICD9: 599.70, ICD10: R31.9 See #3 - BACTERIAL CULTURE, URINE - URINALYSIS, WITH MICROSCOPIC Prescription instructions reviewed with patient as applicable. Potential red flag symptoms discussed with the patient. Reviewed appropriate action plan to take if red flag symptoms occur. Patient agreeable to treatment plan. Mika Kaplan APRN.CNP documented in this encounterSum[facility] Telephone encounter Note * Telephone Encounter - Teresa Ferrera RN - 03/29/2024 4:11 PM EST [facility] called in and reports [facility] reached out to them with a referral. They states they have been trying to get a hold of the Pt, but haven't been able to. She [facility] but no the name of the senior living. I have her the names and number we had to get in contact with the Pt. I told her we had Shobha Dallas as a contact at the [facility] ome [phone], which was the same phone # we had for the Pts home and mobile phone. Then we had Anali Gibson as her lawn care specialist at [phone]. She states she had tried calling the Pts mother, but was not able to get a hold of her. She said she would try these numbers. [facility]01-20-2025 Miscellaneous Notes* Telephone Encounter - Teresa Ferrera RN - 03/29/2024 4:11 PM EST Yazan with [facility] called in and reports [facility] reached out to them with a referral. They states they have been trying to get a hold of the Pt, but haven't been able to. She states [facility], but no the name of the senior living. I have her the names and number we had to get in contact with the Pt. I told her we had Shobha Dallas as a contact at the group ome [phone], which was the same phone # we had for the Pts home and mobile phone. Then we had Anali Gibson as her lawn care specialist at [phone]. She states she had tried calling the Pts mother, but was not able to get a hold of her. She said she would try these numbers. documented in this encounterSumma [facility]01-15-2025 Telephone encounter Note * Telephone Encounter - Aaliyah Gonzalez MA - 03/24/2024 12:28 PM EST Faxed as requested. Aaliyah Gonzalez MA [facility]01-15-2025 Miscellaneous Notes* Telephone Encounter - Aaliyah Gonzalez MA - 03/24/2024 12:28 PM EST Faxed as requested. Aaliyah Gonzalez MA * Telephone Encounter - Pamela Singh LPN - 03/24/2024 11:38 AM EST Shobha with [facility] called to let you know af ax was sent approx around 11 am today 03-24-24. Inthis fax they are exact specific that need to be on Dr. Thakur last note and they need faxed back tothem as soon as possible. This is regarding Lymphedema Leg Compressions Pump. FAX: [phone] Pamela Singh LPN documented in this encounterSumma Health [facility]01-15-2025 Telephone encounter Note * Telephone Encounter - Pamela Singh LPN - 03/24/2024 11:38 AM EST Shobha with [facility] called to let you know af ax was sent approx around 11 am today 03-24-24. Inthis fax they are exact specific that need to be on Dr. Thakur last note and they need faxed back tothem as soon as possible. This is regarding Lymphedema Leg Compressions Pump. FAX: [phone] Pamela Singh LPN [facility]01-14-2025 History of Present illness Narrative* Isi Goodman MD - 03/23/2024 10:30 AM EST Cardiology Established Outpatient Visit Reason for visit: Hx right-sided heart failure HPI: Sia Abdul is a 43 y.o. female who presents today for history of right-sided heart failure. Past medical history of right sided heart failure, Prader-Willi, morbid obesity, hypothyroidism, hypothalamic hypogonadism, lymphedema of the bilateral lower extremities, sleep apnea, mild intermittent asthma, venous insufficiency, and history of DVT. Patient was previously admitted to an outside hospital from December 26 - January 02, 2024 in the setting of 30 pound weight gain and dyspnea. Patient was managed with diuresis with IV furosemide; percaregiver 30 pounds of fluid weight was removed. Echocardiogram reportedly showed LVEF 55%, mildly dilated RV with moderate tricuspid regurgitation, and elevated RVSP of 67 mmHg. BNP on admission waselevated at 1051. EKG showed nonspecific T wave changes. CTA was performed during admission and wasnegative for pulmonary embolism. Patient was referred by her savings teller to establish care with general cardiology. Patient presented to cardiology clinic today with her caregiver on 01/20/2024. Patient's mother joined via telephone. Per caregiver patient has had interval increase in weight and lower extremity swelling, orthopnea since discharge. Current diuretic plan is p.o. furosemide 40 mg twice daily and as needed Bumex. Outside echocardiogram images are not available for my review. Recommended repeat transthoracic echocardiogram to reassess overall cardiac structure and function, degree of tricuspid regurgitation, RVSP. Given history of right sided heart failure likely secondary to obesity hypoventilation syndrome we will transition from p.o. furosemide to p.o. torsemide 20 mg twice daily (better oral bioavailability). We will uptitrate guideline directed medical therapy as tolerated. Patient presented to cardiology clinic on 03/23/2024 with her mother. Received phone call on 03/16/2024 by patient's mother. Patient was previously placed on torsemide on 01/27/2024. AT time patient wasin senior living and torsemide accidentally not initiated. Patient's mother noted that patient had interval increase in weight, dyspnea. Instructed patient's caregiver to initiate torsemide 40 mg twice daily (03/16/2024). Patient presents with her family today. Interval improvement in dyspnea and lower extremity swelling after switching to torsemide. Will continue torsemide 40 mg twice daily. Will repeat a renal function panel in 2 weeks. Past Medical History: She has a past medical history of Adjustment disorder with mixed anxiety and depressed mood (12/14/2019). Surgical History: She has a past surgical history that includes Other surgical history (12/14/2019). Family History: - Reviewed; non-contributory Allergies: Phenytoin Social History: - Non-smoker; no illicit drug use Prior Cardiovascular Testing (personally reviewed): ECG (01/20/2024)- sinus rhythm; non-specific t-wave changes TTE (12/2016) 1. The left ventricular systolic function is normal with a 55-60% estimated ejection fraction. 2. RVSP 35 mmHg Review of Systems: Review of Systems Constitutional: Negative. HENT: Negative. Eyes: Negative. Cardiovascular: Positive for dyspnea on exertion and leg swelling. Negative for chest pain, near-syncope, orthopnea, palpitations, paroxysmal nocturnal dyspnea and syncope. Respiratory: Positive for shortness of breath. Endocrine: Negative. Hematologic/Lymphatic: Negative. Skin: Negative. Musculoskeletal: Negative. Gastrointestinal: Negative. Genitourinary: Negative. Neurological: Negative. Psychiatric/Behavioral: Negative. Allergic/Immunologic: Negative. Objective Outpatient Medications: Current Outpatient Medications: ammonium lactate (Amlactin) 12 % cream, APPLY TOPICALLY TO AFFECTED AREA(S) ON LEGS AT BEDTIME, Disp: , Rfl: aspirin 81 mg EC tablet, Take 1 tablet (81 mg) by mouth once daily., Disp: , Rfl: calcium carbonate-vitamin D3 500 mg-5 mcg (200 unit) tablet, Take 1 tablet by mouth 2 times daily (morning and late afternoon)., Disp: , Rfl: carvedilol (Coreg) 3.125 mg tablet, Take 1 tablet (3.125 mg) by mouth twice a day., Disp: , Rfl: Certavite-Antioxidant 18-400 mg-mcg tablet, Take 1 tablet by mouth once daily., Disp: , Rfl: clotrimazole (Lotrimin) 1 % cream, APPLY TOPICALLY TO AFFECTED AREA(S) ON BILATERAL GROIN TWICE DAILY, Disp: , Rfl: desogestreL-ethinyl estradioL (Apri) 0.15-0.03 mg tablet, Take by mouth., Disp: , Rfl: DOCOSAHEXAENOIC ACID ORAL, Take 1,000 mg by mouth once daily., Disp: , Rfl: Dulera 100-5 mcg/actuation inhaler, INHALE 2 PUFFS BY MOUTH TWICE DAILY ( INSTRUCTED), Disp: , Rfl: EPINEPHrine 0.3 mg/0.3 mL injection syringe, INJECT 1 PEN INTO LATERAL THIGH DIRECTED FOR ALLERGIC REACTIONS TO BEE/WASP STINGS MAY REPEAT IN 5-15 MINUTES IF SYMPTOMS PERSIST * *STAFF REORDER, 4 DAYS IN ADVANCE*, Disp: , Rfl: ergocalciferol (Vitamin D-2) 1.25 MG (99675 UT) capsule, Take by mouth., Disp: , Rfl: fish oil concentrate (Gurdon-3) 120-180 mg capsule, Take 1 capsule (1 g) by mouth once daily., Disp:, Rfl: fluticasone (Flonase) 50 mcg/actuation nasal spray, Administer 2 sprays into each nostril once daily., Disp: , Rfl: levothyroxine (Synthroid, Levoxyl) 100 mcg tablet, take one tablet by mouth daily one hour before breakfast, Disp: , Rfl: lisinopril 5 mg tablet, Take 1 tablet (5 mg) by mouth once daily., Disp: , Rfl: naproxen (Naprosyn) 500 mg tablet, TAKE ONE TABLET BY MOUTH TWICE DAILY NEEDED FOR PAIN/INFLAMMATION OF KNEE *TAKE WITH FOOD* *STAFF REORDER, 4 DAYS IN ADVANCE*, Disp: , Rfl: nystatin (Mycostatin) 100,000 unit/gram powder, APPLY TOPICALLY TWICE DAILY TO AFFECTED AREA(S) ON ABDOMINAL FOLDS, Disp: , Rfl: ondansetron ODT (Zofran-ODT) 4 mg disintegrating tablet, dissolve 1 tablet ON TONGUE every 8 hours if needed for nausea OR vomiting, Disp: , Rfl: potassium chloride CR 20 mEq ER tablet, Take 1 tablet (20 mEq) by mouth once daily., Disp: , Rfl: Symbicort 160-4.5 mcg/actuation inhaler, Inhale 2 puffs 2 times a day., Disp: , Rfl: torsemide (Demadex) 20 mg tablet, Take 2 tablets (40 mg) by mouth 2 times a day., Disp: 360 tablet,Rfl: 3 acetaminophen (Tylenol) 500 mg tablet, Take 2 tablets (1,000 mg) by mouth every 8 hours if needed.,Disp: , Rfl: albuterol 90 mcg/actuation inhaler, Inhale 2 puffs every 4 hours if needed., Disp: , Rfl: Current Facility-Administered Medications: perflutren lipid microspheres (Definity) injection 2 mL of dilution, 2 mL of dilution, intravenous,Once in imaging, Isi Goodman MD Last Recorded Vitals BP 123/73 (BP Location: Right arm, Patient Position: Sitting) Pulse 67 Wt 129 kg (285 lb) SpO2 98% BMI 63.22 kg/m Physical Exam: Physical Exam Constitutional: General: She is not in acute distress. Appearance: She is obese. HENT: Head: Normocephalic. Mouth/Throat: Mouth: Mucous membranes are moist. Eyes: Extraocular Movements: Extraocular movements intact. Conjunctiva/sclera: Conjunctivae normal. Neck: Vascular: JVD present. No carotid bruit. Cardiovascular: Rate and Rhythm: Normal rate and regular rhythm. Pulses: Normal pulses. Heart sounds: No murmur heard. Comments: Bilateral LE lymphedema noted Pulmonary: Effort: Pulmonary effort is normal. No respiratory distress. Breath sounds: Normal breath sounds. Abdominal: General: Bowel sounds are normal. There is no distension. Palpations: Abdomen is soft. Musculoskeletal: General: No swelling. Right lower le+ Edema present. Left lower le+ Edema present. Skin: General: Skin is warm and dry. Neurological: Mental Status: She is alert. Mental status is at baseline. Cranial Nerves: No cranial nerve deficit. Motor: No weakness. Psychiatric: Mood and Affect: Mood normal. Behavior: Behavior normal. Lab Review: Lab Results Component Value Date GLUCOSE 91 01/20/2024 CALCIUM 9.0 01/20/2024 NA 142 01/20/2024 K 5.0 01/20/2024 CO2 35 (H) 01/20/2024 CL 103 01/20/2024 BUN 26 (H) 01/20/2024 CREATININE 0.74 01/20/2024 Lab Results Component Value Date CHOL 146 04/17/2020 Lab Results Component Value Date HDL 67.8 04/17/2020 No results found for: LDLCALC Lab Results Component Value Date TRIG 69 04/17/2020 Lab Results Component Value Date TSH 3.57 04/17/2020 Assessment: 43 y.o. female who presents today for history of right-sided heart failure. Past medical history ofright sided heart failure, Prader-Willi, morbid obesity, hypothyroidism, hypothalamic hypogonadism,lymphedema of the bilateral lower extremities, sleep apnea, mild intermittent asthma, venous insufficiency, and history of DVT. Patient presented to cardiology clinic on 03/23/2024 with her mother. Received phone call on 03/16/2024 by patient's mother. Patient was previously placed on torsemide on 01/27/2024. [facility] living and torsemide accidentally not initiated. Patient's mother noted that patient had interval increase in weight, dyspnea. Instructed patient's caregiver to initiate torsemide 40 mg twice daily (03/16/2024). Patient presents with her family today. Interval improvement in dyspnea and lower extremity swelling after switching to torsemide. Will continue torsemide 40 mg twice daily. Will repeat a renal function panel in 2 weeks. We also discussed the option of GLP-1 agonist as potential pharmacotherapy for weight loss; will defer to patient's endocrinology team. Overall Plan: 1. Acute on chronic right-sided heart failure - Likely secondary to obesity hypoventilation syndrome in setting of Prader-Willi - Treat underlying exacerbating factors - Interval improvement in volume overload on torsemide; continue p.o. torsemide 40 mg twice daily - Check CMP - Encouraged low-sodium diet less than 2 g daily and avoidance of excessive fluid intake (less than2 L daily) 2. RV dysfunction - Likely secondary to obesity hypoventilation syndrome - Management as above 3. Prader-Willi syndrome - Follow-up as per genetics clinic 4. Morbid obesity (BMI 65) - Discussed need for significant weight loss; consider GLP-1 agonist as potential pharmacotherapy, will defer to endocrinology - Dietary lifestyle modifications 5. 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 History of lymphedema - Continue lymphedema pumps 8. Discussed that if patient had unexplained weight gain greater than 3 pounds in 48-hour period tocontact our cardiology office for additional instructions/diuretic management Disposition: Return to cardiology clinic in 3 months Isi Goodman MD documented in this [facility] Work Phone: 1(953) 323-563801-14-2025 Instructions* Patient Instructions* Isi Goodman MD - 03/23/2024 10:30 AM EST We will continue torsemide We will get a repeat kidney function panel in 2 weeks We recommend that you discuss with the endocrinology team if a medication like semaglutide (ozempic) or tirzepatide (zepbound) might be used for weight loss We will see back in heart clinic in ~ 3 months or earlier if needed. Thank you for your visit today. Please contact our office (via [employer] or phone) with any additional questions. [facility] [place] RODRÍGUEZ Sun/Clinic Nurse for: Dr. Maxine Nicolas [address], [address] [place] [address] Press Option 5 then Option 3 to speak with the Clinic Nurse (Corinne) To Reach: Billing Questions - [phone] Scheduling / Rescheduling - Option 1 Refills / Medication Requests - Option 3 General Office / [place] - Option 4 Results - Option 6 Medical Records - Option 7 Repeat Options - Option 9 [facility] Phone: [phone]) 415-948001-08-2025 Miscellaneous Notes* Telephone Encounter - María Avila MA - 03/17/2024 9:43 AM EST Clarence has not heard that medication was not received so he is assuming it arrived. * Telephone Encounter - Mika Kaplan APRN.CNP - 03/17/2024 7:20 AM EST Will address at upcoming appointment. Has patient received her lasix? Is she having any symptoms? Thank you Mika Kaplan APRN.MANAGER HOTEL * Telephone Encounter - Lillie Marshall RN - 03/16/2024 9:37 AM EST Clarence from [facility] calls with a couple of things regarding patient: Patient for the past 2 days weight was 294. Today's weight was 300. Patient had stopped taking Bumex on 03/10/2024 due to medication causing a headache. At office visit with Dr. Corona on 03/12/2024 patient was put on torsemide 20 mg twice a day. Patient still has not received medication from pharmacy. Clarence hopes that patient will receive medication today so that patient can start taking medication. Clarence also notified tier lift truck operator regarding weight gain. Patient has a vaginal prolapse. This was noted last time patient was in hospital. Mother had reported that patient has had prolapse for awhile. Staff has noticed that when patient's wipes there is a little blood on the toilet paper. Clarence asking if this can be address at patient's appointment on 03/10. Please review and advise, Lillie Marshall RN [facility] this [facility] Telephone encounter Note * Telephone Encounter - María Avila MA - 03/17/2024 9:43 AM EST Clarence has not heard that medication was not received so he is assuming it arrived. [facility]01-08-2025 Telephone encounter Note* Telephone Encounter - Mika Kaplan APRN.CNP - 03/17/2024 7:20 AM EST Will address at upcoming appointment. Has patient received her lasix? Is she having any symptoms? Thank you Mika Kaplan APRN.OBED [facility]01-07-2025 Telephone encounter Note* Telephone Encounter - Lillie Marshall RN - 03/16/2024 9:37 AM EST Clarence from [facility] calls with a couple of things regarding patient: Patient for the past 2 days weight was 294. Today's weight was 300. Patient had stopped taking Bumex on 03/10/2024 due to medication causing a headache. At office visit with Dr. Corona on 03/12/2024 patient was put on torsemide 20 mg twice a day. Patient still has not received medication from pharmacy. Clarence hopes that patient will receive medication today so that patient can start taking medication. Clarence also notified tier lift truck operator regarding weight gain. Patient has a vaginal prolapse. This was noted last time patient was in hospital. Mother had reported that patient has had prolapse for awhile. Staff has noticed that when patient's wipes there is a little blood on the toilet paper. Clarence asking if this can be address at patient's appointment on 03/10. Please review and advise, Lillie Marshall RN [facility]01-03-2025 Telephone encounter Note* Telephone Encounter - Eulalia Laureano RN - 03/12/2024 12:51 PM EST Blanca with N calls to let provider know that patient stopped taking Bumex Friday Morning d/t causing a headache. Patient has had a 13 lb weight gain since March 01, 2024. Patient also had a fall yesterday and was not able to get up so paramedics had to be contacted. No injuries from that. Patient was seen today by Dr. Corona. Notified Blanca that patient was placed on torsemide for 40 mg twice daily for CHF and lymph edema pumps were ordered. Blanca not sure if provider aware of fall. Sending as FYI to provider that saw patient. Nothing further needed at this time. Eulalia Laureano RN [facility]01-03-2025 Miscellaneous Notes* Telephone Encounter - Eulalia Laureano RN - 03/12/2024 12:51 PM EST Blanca with N calls to let provider know that patient stopped taking Bumex Friday Morning d/t causing a headache. Patient has had a 13 lb weight gain since March 01, 2024. Patient also had a fall yesterday and was not able to get up so paramedics had to be contacted. No injuries from that. Patient was seen today by Dr. Corona. Notified Blanca that patient was placed on torsemide for 40 mg twice daily for CHF and lymph edema pumps were ordered. Blanca not sure if provider aware of fall. Sending as FYI to provider that saw patient. Nothing further needed at this time. Eulalia Laureano RN documented in this encounterSumma [facility]01-03-2025 NoteHNO ID: [id number] Author: RAJESH CORONA MD Service: ? Author Type: Physician Type: Progress Notes Filed: 03/13/2024 23:03 Note Text: This note was created using [employer]. Subjective Patient presents with: Hospital F/U: [facility] 02/28/24 for pulmonary edema and severe pain right shoulder/under arm Medication Problem: Bumex is causing headache and severe diarrhea and Jayshree is refusing to take the Bumex Weight Problem: Has had a weight gain of 13 lbs since discharged on 03/01/24. Is on 1000 calorie diet. 2000 mg sodium and 1.5 liter fluid restriction Consult: to Palliative Care Needing a written order for compression pumps: due to dx of lymph edema will be wearing the pumps during the day. PCP Marilee Thakur MD Sia Abdul was here with her caregiver. She was admitted 02/27-03/01 for flash pulmonary edema, acute on chronic congestive heart failure, acute on chronic respiratory failure. Her diuretic was changed to bumetanide. Since being placed on bumetanide, she started having headaches and was associated with some diarrhea, so she was refusing bumetanide and had gained weight. She was interested in getting back to torsemide, as that worked best compared with furosemide, or metolazone. She was also admitted 02/23 to 02/24 for demand ischemia NSTEMI and had a heart cath showing clean coronaries. 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 She had no skin breakdown to date, despite increased leg swelling. She needed a replacement for her venous pump, which was worn down, and was effectively used to control edema in conjunction with compression stockings, TYLER wraps and leg elevation when applicable. Caregiver reported she has been using a venous pump since 2003 and patient indicated the pressure setting was 60 mm Hg applied once a day. Review of Systems Constitutional: Positive for unexpected weight change. Negative for diaphoresis, fatigue and fever. HENT: Negative for congestion. Respiratory: Negative for cough, shortness of breath and wheezing. Cardiovascular: Negative for chest pain and palpitations. Genitourinary: Negative for difficulty urinating and dysuria. Neurological: Positive for headaches. Negative for dizziness. ACTIVE PROBLEM LIST Prader-Willi Syndrome Mild Intermittent Asthma Without Complication Allergic Rhinitis Vitamin D Deficiency Venous Insufficiency (Chronic) (Peripheral) Acquired Hypothyroidism Obstructive Sleep Apnea Syndrome Hypothalamic Hypogonadism (Hcc) Lymphedema of Left Lower Extremity Lymphedema of Right Lower Extremity Sleep Deprivation Pulmonary Hypertension (Hcc) Right Ventricular Dysfunction Acute Congestive Heart Failure (Hcc) Chronic Obstructive Pulmonary Disease, Unspecified Copd Type (Hcc) Nonrheumatic Mitral Valve Regurgitation Acute On Chronic Diastolic Congestive Heart Failure (Hcc) Right-Sided Congestive Heart Failure Secondary to Left-Sided Congestive Heart Failure (Hcc) Social History Tobacco Use Smoking status: Never Smokeless tobacco: Never Substance Use Topics Alcohol use: No Drug use: No Current Outpatient Medications Medication Sig mometasone-formoterol (DULERA) 100-5 mcg/actuation inhaler Inhale 2 Puffs as instructed two times a day. fluticasone (FLONASE) 50 mcg/actuation nasal spray INSTILL 2 SPRAYS IN EACH NOSTRIL DAILY diphenoxylate-atropine (LOMOTIL) 2.5-0.025 mg per tablet Take 1 tablet by mouth four times a day as needed. ondansetron (ZOFRAN) 4 mg tablet Take by mouth every 8 hours as needed for nausea/vomiting. aspirin 81 mg chewable tablet Take 81 mg by mouth once daily. carvedilol (COREG) 3.125 mg tablet Take 1 tablet by mouth two times a day. ammonium lactate (LAC-HYDRIN) 12 % cream APPLY TOPICALLY TO AFFECTED AREA(S) ON LEGS AT BEDTIME multivitamin-ferrous fumarate-folic acid (CERTAVITE-ANTIOXIDANT) Take 1 tablet by mouth once daily. Gkiwm-9-UVP-EPA-Fish Oil 1,000 mg (120 mg-180 mg) cap Take 1 capsule by mouth once daily. levothyroxine (SYNTHROID) 100 mcg tablet take one tablet by mouth daily one hour before breakfast nystatin (NYAMYC) powder APPLY TOPICALLY TWICE DAILY TO AFFECTED AREA(S) ON ABDOMINAL FOLDS OYSTER SHELL CALCIUM-VITAMIN D 500 mg-5 mcg (200 unit) per tablet take one tablet by mouth twice daily with meals clotrimazole (LOTRIMIN) 1 % cream APPLY TOPICALLY TO AFFECTED AREA(S) ON BILATERAL GROIN TWICE DAILY (Patient taking differently: as needed. APPLY TOPICALLY TO AFFECTED AREA(S) ON BILATERAL GROIN TWICE DAILY) albuterol HFA (VENTOLIN HFA) 90 mcg/actuation inhaler Inhale 2 Puffs as instructed every 4 hours as needed for wheezing/shortness of breath. acetaminophen (TYLENOL EXTRA STRENGTH) 500 mg tablet Take 2 tablets by mouth every 8 hours as needed for pain (For knee pain). cetirizine (ZYRTEC) 10 mg tablet Take 1 tablet by mouth once daily. IRAIDA 0.35 mg tablet Take 1 tablet by mouth once mallory (more content not included)...[facility]01-03-2025 History of Present illness Narrative* Corona, Toñito, MD - 03/12/2024 10:41 AM EST This note was created using [employer]. Subjective Patient presents with: Hospital F/U: [facility] 02/28/24 for pulmonary edema and severe pain right shoulder/under arm Medication Problem: Bumex is causing headache and severe diarrhea and Jayshree is refusing to take theBumex Weight Problem: Has had a weight gain of 13 lbs since discharged on 03/01/24. Is on 1000 calorie diet. 2000 mg sodium and 1.5 liter fluid restriction Consult: to Palliative Care Needing a written order for compression pumps: due to dx of lymph edema will be wearing the pumps during the day. PCP Marilee Thakur MD Sia Abdul was here with her caregiver. She was admitted 02/27-03/01 for flash pulmonary edema, acute on chronic congestive heart failure, acute on chronic respiratory failure. Her diuretic was changed to bumetanide. Since being placed on bumetanide, she started having headaches and was associated with some diarrhea, so she was refusing bumetanide and had gained weight. She was interested in getting back to torsemide, as that worked best compared with furosemide, or metolazone. She was also admitted 02/23 to 02/24 for demand ischemia NSTEMI and had a heart cath showing clean coronaries. 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 She had no skin breakdown to date, despite increased leg swelling. She needed a replacement for her venous pump, which was worn down, and was effectively used to control edema in conjunction with compression stockings, TYLER wraps and leg elevation when applicable. Caregiver reported she has been using a venous pump since 2003 and patient indicated the pressure setting was 60 mm Hg applied once a day. Review of Systems Constitutional: Positive for unexpected weight change. Negative for diaphoresis, fatigue and fever. HENT: Negative for congestion. Respiratory: Negative for cough, shortness of breath and wheezing. Cardiovascular: Negative for chest pain and palpitations. Genitourinary: Negative for difficulty urinating and dysuria. Neurological: Positive for headaches. Negative for dizziness. ACTIVE PROBLEM LIST Prader-Willi Syndrome Mild Intermittent Asthma Without Complication Allergic Rhinitis Vitamin D Deficiency Venous Insufficiency (Chronic) (Peripheral) Acquired Hypothyroidism Obstructive Sleep Apnea Syndrome Hypothalamic Hypogonadism (Hcc) Lymphedema of Left Lower Extremity Lymphedema of Right Lower Extremity Sleep Deprivation Pulmonary Hypertension (Hcc) Right Ventricular Dysfunction Acute Congestive Heart Failure (Hcc) Chronic Obstructive Pulmonary Disease, Unspecified Copd Type (Hcc) Nonrheumatic Mitral Valve Regurgitation Acute On Chronic Diastolic Congestive Heart Failure (Hcc) Right-Sided Congestive Heart Failure Secondary to Left-Sided Congestive Heart Failure (Hcc) Social History Tobacco Use Smoking status: Never Smokeless tobacco: Never Substance Use Topics Alcohol use: No Drug use: No Current Outpatient Medications Medication Sig mometasone-formoterol (DULERA) 100-5 mcg/actuation inhaler Inhale 2 Puffs as instructed two times aday. fluticasone (FLONASE) 50 mcg/actuation nasal spray INSTILL 2 SPRAYS IN EACH NOSTRIL DAILY diphenoxylate-atropine (LOMOTIL) 2.5-0.025 mg per tablet Take 1 tablet by mouth four times a day asneeded. ondansetron (ZOFRAN) 4 mg tablet Take by mouth every 8 hours as needed for nausea/vomiting. aspirin 81 mg chewable tablet Take 81 mg by mouth once daily. carvedilol (COREG) 3.125 mg tablet Take 1 tablet by mouth two times a day. ammonium lactate (LAC-HYDRIN) 12 % cream APPLY TOPICALLY TO AFFECTED AREA(S) ON LEGS AT BEDTIME multivitamin-ferrous fumarate-folic acid (CERTAVITE-ANTIOXIDANT) Take 1 tablet by mouth once daily. Azvjd-9-IRQ-EPA-Fish Oil 1,000 mg (120 mg-180 mg) cap Take 1 capsule by mouth once daily. levothyroxine (SYNTHROID) 100 mcg tablet take one tablet by mouth daily one hour before breakfast nystatin (NYAMYC) powder APPLY TOPICALLY TWICE DAILY TO AFFECTED AREA(S) ON ABDOMINAL FOLDS OYSTER SHELL CALCIUM-VITAMIN D 500 mg-5 mcg (200 unit) per tablet take one tablet by mouth twice daily with meals clotrimazole (LOTRIMIN) 1 % cream APPLY TOPICALLY TO AFFECTED AREA(S) ON BILATERAL GROIN TWICE DAILY (Patient taking differently: as needed. APPLY TOPICALLY TO AFFECTED AREA(S) ON BILATERAL GROIN TWICE DAILY) albuterol HFA (VENTOLIN HFA) 90 mcg/actuation inhaler Inhale 2 Puffs as instructed every 4 hours asneeded for wheezing/shortness of breath. acetaminophen (TYLENOL EXTRA STRENGTH) 500 mg tablet Take 2 tablets by mouth every 8 hours as needed for pain (For knee pain). cetirizine (ZYRTEC) 10 mg tablet Take 1 tablet by mouth once daily. IRAIDA 0.35 mg tablet Take 1 tablet by mouth once daily. EPINEPHrine (EPIPEN) 0.3 mg/0.3 mL auto-injector INJECT 1 PEN INTO LATERAL THIGH DIRECTED FOR ALLERGIC REACTIONS TO BEE/WASP STINGS MAY REPEAT IN 5-15 MINUTES IF SYMPTOMS PERSIST * *STAFF REORDER,4 DAYS IN ADVANCE* torsemide (DEMADEX) 20 mg tablet Take 2 tablets by mouth two times a day. MEDICAL SUPPLY Lymphedema compression pump to both legs 1 hour daily. 60 mm Hg. New machine. Gauze Bandage 2 X 2 bndg Apply [...] 8pm and q Fri at 4pm Dx:Q87.1 No current facility-administered medications for this visit. Objective BP 116/85 Pulse 74 Wt (!) 136.7 kg (301 lb 5.9 oz) LMP 05/13/2007 SpO2 98% BMI 66.37 kg/m Physical Exam Constitutional: General: She is not in acute distress. Appearance: She is obese. She is not diaphoretic. Comments: Wheel chair bound Eyes: Conjunctiva/sclera: Conjunctivae normal. Cardiovascular: Rate and Rhythm: Normal rate and regular rhythm. Heart sounds: No murmur heard. No gallop. Pulmonary: Effort: No respiratory distress. Breath sounds: No wheezing, rhonchi or rales. Comments: On portable O2 via NC. Abdominal: Tenderness: There is no abdominal tenderness. Musculoskeletal: Right lower le+ Edema present. Left lower le+ Edema present. Neurological: General: No focal deficit present. Psychiatric: Attention and Perception: She is inattentive. Mood and Affect: Affect is flat. Speech: Speech is delayed. Assessment and Plan 1. Weight gain - ICD9: 783.1, ICD10: R63.5 (primary diagnosis) - Change diuretic. 2. Acute on chronic diastolic congestive heart failure (HCC) - ICD9: 428.33, 428.0, ICD10: I50.33 - Options were reviewed. - TORSEMIDE 20 MG TABLET. 2 tablets twice a day. 3. Lymphedema of right lower extremity - ICD9: 457.1, ICD10: I89.0 - TORSEMIDE 20 MG TABLET - MEDICAL SUPPLY 4. Lymphedema of left lower extremity - ICD9: 457.1, ICD10: I89.0 - TORSEMIDE 20 MG TABLET - MEDICAL SUPPLY 5. 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 Bee allergy status - ICD9: V15.06, ICD10: Z91.030 - EPINEPHRINE 0.3 MG/0.3 ML INJECTION, AUTO-INJECTOR 7. 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) - ICD9: 428.0, ICD10: I50.814 - See above. 8. Lymphedema - ICD9: 457.1, ICD10: I89.0 - Venous pump ordered. 1 hour daily 60 mm Hg. - MEDICAL SUPPLY 9. Prader-Willi syndrome - ICD9: 759.81, ICD10: Q87.11 - MEDICAL SUPPLY Rajesh Corona MD documented in this encounterSum[facility]01-[facility]-2025 Telephone encounter Note * Telephone Encounter - Pepper Walsh RN - 03/12/2024 8:16 AM EST Leia, Physical Therapist with [facility], notified. Pepper Walsh RN [facility]01-03-2025 Miscellaneous Notes* Telephone Encounter - Pepper Walsh RN - 03/12/2024 8:16 AM EST Leia, Physical Therapist with [facility], notified. Pepper Walsh RN * Telephone Encounter - Mika Kaplan APRN.CNP - 03/12/2024 8:11 AM EST Ok to continue in home physical therapy. Thank you Mika Kaplan APRN.CNP * Telephone Encounter - Pepper Walsh RN - 03/09/2024 11:23 AM EST Leia, Physical Therapist with [facility] calling and requesting verbal order to continue in-home Physical Therapy for patient. Please call Leia at [phone]. May leave detailed message on this secure VM. Pepper Walsh RN documented in this encounterSum[facility]01-03-2025 Telephone encounter Note * Telephone Encounter - Mika Kaplan APRN.CNP - 03/12/2024 8:11 AM EST Ok to continue in home physical therapy. Thank you Mika Kaplan APRN.CNP [facility]01-02-2025 Telephone encounter Note* Telephone Encounter - Teresa Ferrera RN - 03/11/2024 10:53 AM EST Shobha from [facility] called and is notified of providers message and instructions. She voices understanding and states Pt isn't SOB. Pt scheduled tomorrow with Dr Corona at 940 am. Teresa Ferrera RN [facility]01-02-2025 Miscellaneous Notes* Telephone Encounter - Teresa Ferrera RN - 03/11/2024 10:53 AM EST Shobha from [facility] called and is notified of providers message and instructions. She voices understanding and states Pt isn't SOB. Pt scheduled tomorrow with Dr Corona at 940 am. Teresa Ferrera, RN * Telephone Encounter - Sagar Stewart MD - 03/11/2024 9:47 AM EST Would recommend seeing a provider sooner since has gained weight off diuretic. If short of breath, to er * Telephone Encounter - Candelaria Ball LPN - 03/11/2024 9:39 AM EST Shobha from [facility] calling patient said Bumex has been giving her a headache. She wastaken off the generic lasix and put on bumex 1 mg one tablet twice daily when she was in [facility]. She was discharged on 03/01/2024, patient has gained 13 pounds since that date. She has refused to take Bumex last night and this morning dose. Patient uses [facility] for her pharmacy. Asking if she can have medication discontinued and placed on something else? Her next appt is scheduled on 03/22/2024 with Mika Kaplan for a physical. Please advise documented in this encounterSumma [facility]01-02-2025 Telephone encounter Note * Telephone Encounter - Sagar Stewart MD - 03/11/2024 9:47 AM EST Would recommend seeing a provider sooner since has gained weight off diuretic. If short of breath, to er [facility] Work Phone: [phone] Telephone encounter Note* Telephone Encounter - Candelaria Ball LPN - 03/11/2024 9:39 AM EST Shobha from [facility] calling patient said Bumex has been giving her a headache. She wastaken off the generic lasix and put on bumex 1 mg one tablet twice daily when she was in [facility]. She was discharged on 03/01/2024, patient has gained 13 pounds since that date. She has refused to take Bumex last night and this morning dose. Patient uses [facility] for her pharmacy. Asking if she can have medication discontinued and placed on something else? Her next appt is scheduled on 03/22/2024 with Mika Eusebio for a physical. Please advise [facility]12-31-2024 Telephone encounter Note* Telephone Encounter - Pepper Walsh RN - 03/09/2024 11:23 AM EST Leia, Physical Therapist with [facility] calling and requesting verbal order to continue in-home Physical Therapy for patient. Please call Leia at [phone]. May leave detailed message on this secure VM. Pepper Walsh RN [facility]12-31-2024 NotePatient Outreach (INTMMN) SIA ABDUL ([id number]) 1980 F Date Time Provider Department 03/09/24 MARILEE THAKUR During your visit today, we recorded the following information about you: Allergies As of Date: 03/09/2024 Noted Allergy Reaction BEE STING 02/28/2023 10 - Anaphylaxis DILANTIN (PHENYTOIN SODIUM EXTEND*01/28/2006 Date Reviewed: 02/16/2024 Reviewed by: Lacie Reyes LPN - Fully Assessed Visit Diagnosis:Acquired hypothyroidism [E03.9] Order(s):THYROID STIMULATING HORMONE [TS] Order #: [id number] FUTURE Prescriptions as of 03/12/2024 - midodrine (PROAMITINE) 5 mg tablet Take 5 mg by mouth three times a day. - mometasone-formoterol (DULERA) 100-5 mcg/actuation inhaler Inhale 2 Puffs as instructed two times a day. - fluticasone (FLONASE) 50 mcg/actuation nasal spray INSTILL 2 SPRAYS IN EACH NOSTRIL DAILY - diphenoxylate-atropine (LOMOTIL) 2.5-0.025 mg per tablet Take 1 tablet by mouth four times a day as needed. - ondansetron (ZOFRAN) 4 mg tablet Take by mouth every 8 hours as needed for nausea/vomiting. - aspirin 81 mg chewable tablet Take 81 mg by mouth once daily. - metOLazone (ZAROXOLYN) 2.5 mg tablet Take 1 tablet by mouth once daily. - carvedilol (COREG) 3.125 mg tablet Take 1 tablet by mouth two times a day. - lisinopril (ZESTRIL) 5 mg tablet Take 1 tablet by mouth once daily. - potassium chloride 20 mEq TbER Take 1 tablet by mouth once daily. - ammonium lactate (LAC-HYDRIN) 12 % cream APPLY TOPICALLY TO AFFECTED AREA(S) ON LEGS AT BEDTIME - Leg Brace (TRUE CMFT KNEE COMPRESSION) misc 1 Each once daily. - multivitamin-ferrous fumarate-folic acid (CERTAVITE-ANTIOXIDANT) Take 1 tablet by mouth once daily. - Axaur-3-UPU-EPA-Fish Oil 1,000 mg (120 mg-180 mg) cap [...] mouth daily one hour before breakfast - nystatin (NYAMYC) powder APPLY TOPICALLY TWICE [...] 4pm Dx:Q87.1 Problem List As Of Date 03/09/2024 Noted Resolved Other malaise and fatigue [R53.81, [...] 40.0-44.9, adult (HCC) [Z68.41] 12/14/2014 02/09/2015 BMI (more content not included)...[facility]12-23-2024 Note [facility]12-20-2024 NoteHNO ID: [id number] Author: BRADLEY FLORES RN Service: ? Author Type: Registered Nurse Type: Progress Notes Filed: 02/27/2024 10:22 Note Text: Transition Care Management (TCM) Initial Outreach PCP Update / Actionable Items N/A - No specialty updates needed Patient Source: Vvn-sp-Ixkwrea (OON) Discharge Outreach Summary: Spoke with Shobha pt 's RN caregiver. States Jayshree had some applesauce last night and became very SOB overnight, returned to [facility] and admitted. Shobha states attending to discuss hospice with pt 's family . Advised will send FYI to PCP. Patient discharged from [facility] Discharge date: 02/26/24 Admitted for: NSTEMI/ fluid overload Readmission Risk: n/a Value-Based Contract: ACO Contact: Contact made with patient: Yes Hi, my name is Bradley Flores RN and I am calling from the [facility] on behalf of your Primary Care Provider, Marilee Thakur MD. I understand you were recently in the hospital, so I am calling to check in with you to ensure you are feeling well now that you are home. May I ask you a few questions related to your hospital stay and well-being? Pt readmitted to [facility] last night. Bradley Flores RN February 27, 2024 10:19 [facility]12-20-2024 History of Present illness Narrative* Bradley Flores RN - 02/27/2024 10:06 AM EST Transition Care Management (TCM) Initial Outreach PCP Update / Actionable Items N/A - No specialty updates needed Patient Source: Uuu-vm-Mdzkanp (OON) Discharge Outreach Summary: Spoke with Shobha pt 's RN caregiver. States Jayshree had some applesauce last night and became very SOB overnight, returned to [facility] and admitted. Shobha states attending to discuss hospice with pt 's family . Advised will send FYI to PCP. Patient discharged from [facility] Discharge date: 02/26/24 Admitted for: NSTEMI/ fluid overload Readmission Risk: n/a Value-Based Contract: ACO Contact: Contact made with patient: Yes Hi, my name is Bradley Flores RN and I am calling from the [facility] on behalf of your Primary Care Provider, Marilee Thakur MD. I understand you were recently in the hospital, so I am calling to check in with you to ensure you are feeling well now that you are home. May I ask you a few questions related to your hospital stay and well-being? Pt readmitted to [facility] last night. Bradley Flores RN February 27, 2024 10:19 AM documented in [facility] encounter[facility] Note* Exam Date Time Procedure Performing Provider Status 02/27/24 2:52 AM XR Chest 1 View Auth (Ve rified) [id number] ORIGINAL EXAMINATION: ONE XRAY VIEW OF THE CHEST02/27/2024 2:53 am COMPARISON: One-view chest radiograph 12/21/2023 HISTORY: ORDERING SYSTEM PROVIDED HISTORY: Reason for Exam: chest pain FINDINGS: Stable cardiomegaly. Pulmonary arteries are enlarged bilaterally. Similar appearing bilateral perihilar airspace opacities and interstitial prominence. No focal consolidation. No pleural effusion or visible pneumothorax. The bony thorax appears intact. IMPRESSION: Cardiomegaly with findings compatible with moderate pulmonary edema. A superimposed infectious or inflammatory process cannot be entirely excluded. Follow-up to resolution is advised. Enlarged pulmonary arteries consistent with pulmonary hypertension. I have personally reviewed the images of this examination, and agree with the resident's findings and interpretation. Interpreted by: Quan Jeong MD Preliminary Report By: Yan Lopez Electronically signed By Quan Jeong MD Dictated Date: 02/27/2024 2:55:52 AM Prelim Date: 02/27/2024 2:59:41 AM Sign Date: 02/27/2024 3:05:24 AM Ordering Provider: JAMILA DARDEN [facility]12-20-2024 Note* Exam Date Time Procedure Performing Provider Status 02/27/24 2:19 AM EKG [ED AOH] - CV JAMILA DARDEN MD; Auth (Verified) ECG Final Report Sinus rhythm Probable left atrial enlargement LAD, consider left anterior fascicular block Abnrm T, probable ischemia, anterolateral lds Electronic Signature: JAMILA DARDEN MD 02/27/2024 02:23:31 [facility]12-20-2024 NotePatient Outreach ([facility]) SIA ABDUL ([id number]) 1980 F Date Time Provider Department 02/27/24 BRADLEY FLORES During your visit today, we recorded the following information about you: Bradley Flores RN 02/27/2024 10:22 AM Signed Transition Care Management (TCM) Initial Outreach PCP Update / Actionable Items N/A - No specialty updates needed Patient Source: Vtp-ia-Vnktilm (OON) Discharge Outreach Summary: Spoke with Shobha pt 's RN caregiver. States Jayshree had some applesauce last night and became very SOB overnight, returned to [facility] ER and admitted. Shobha states attending to discuss hospice with pt 's family . Advised will send FYI to PCP. Patient discharged from [facility] Discharge date: 02/26/24 Admitted for: NSTEMI/ fluid overload Readmission Risk: n/a Value-Based Contract: ACO Contact: Contact made with patient: Yes Hi, my name is Bradley Flores RN and I am calling from the [facility] on behalf of your Primary Care Provider, Marilee Thakur MD. I understand you were recently in the hospital, so I am calling to check in with you to ensure you are feeling well now that you are home. May I ask you a few questions related to your hospital stay and well-being? Pt readmitted to [facility] last night. Bradley Flores RN February 27, 2024 10:19 AM Allergies As of Date: 02/27/2024 Noted Allergy Reaction BEE STING 02/28/2023 10 - Anaphylaxis DILANTIN (PHENYTOIN SODIUM EXTEND*01/28/2006 Date Reviewed: 02/16/2024 Reviewed by: Lacie Reyes LPN - Fully Assessed Prescriptions as of 02/27/2024 - midodrine (PROAMITINE) 5 mg tablet Take 5 mg by mouth three times a day. - mometasone-formoterol (DULERA) 100-5 mcg/actuation inhaler Inhale 2 Puffs as instructed two times a day. - fluticasone (FLONASE) 50 mcg/actuation nasal spray INSTILL 2 SPRAYS IN EACH NOSTRIL DAILY - diphenoxylate-atropine (LOMOTIL) 2.5-0.025 mg per tablet Take 1 tablet by mouth four times a day as needed. - ondansetron (ZOFRAN) 4 mg tablet Take by mouth every 8 hours as needed for nausea/vomiting. - aspirin 81 mg chewable tablet Take 81 mg by mouth once daily. - metOLazone (ZAROXOLYN) 2.5 mg tablet Take 1 tablet by mouth once daily. - carvedilol (COREG) 3.125 mg tablet Take 1 tablet by mouth two times a day. - lisinopril (ZESTRIL) 5 mg tablet Take 1 tablet by mouth once daily. - potassium chloride 20 mEq TbER Take 1 tablet by mouth once daily. - ammonium lactate (LAC-HYDRIN) 12 % cream APPLY TOPICALLY TO AFFECTED AREA(S) ON LEGS AT BEDTIME - Leg Brace (TRUE CMFT KNEE COMPRESSION) misc 1 Each once daily. - multivitamin-ferrous fumarate-folic acid (CERTAVITE-ANTIOXIDANT) Take 1 tablet by mouth once daily. - Tnvlm-0-XSM-EPA-Fish Oil 1,000 mg (120 mg-180 mg) cap [...] mouth daily one hour before breakfast - nystatin (NYAMYC) powder APPLY TOPICALLY TWICE [...] 4pm Dx:Q87.1 Problem List As Of Date 02/27/2024 Noted Resolved Other malaise and fatigue [R53.81, R53.83] 08/06/2005 12/13/2013 Other dy (more content not included)...[facility]12-19-2024 Note [facility]12-18-2024 [facility]12-17-2024 Telephone encounter Note* Telephone Encounter - Aaliyah Gonzalez MA - 02/24/2024 9:[address] Thakur informed verbally by this COMFORT. Aaliyah Gonzalez MA [facility]12-17-2024 Miscellaneous Notes* Telephone Encounter - Aaliyah Gonzalez MA - 02/24/2024 9:[address] Thakur informed verbally by this COMFORT. Aaliyah Gonzalez MA * Telephone Encounter - Lillie Marshall RN - 02/24/2024 8:16 AM EST Clarence from [facility] calls and reports that he is visiting patient currently. Patientis feeling more fatigued than usual and she is having significant pain in her right shoulder. Patient is not dizzy nor does she have chest pressure. Patient's vitals are ok. Patient took naproxen which did not help with the pain. Patient thinks that she needs to go to ER. Advised Clarence that with fatigue and significant pain in her right should she should go to ER to be evaluated. Clarence agrees and voices understanding. Patient's supervisor [employer] is going to take patient to ER. Lillie Marshall RN documented in this encounterSum[facility]12[facility] Telephone encounter Note * Telephone Encounter - Lillie Marshall RN - 02/24/2024 8:16 AM EST Clarence from [facility] calls and reports that he is visiting patient currently. Patientis feeling more fatigued than usual and she is having significant pain in her right shoulder. Patient is not dizzy nor does she have chest pressure. Patient's vitals are ok. Patient took naproxen which did not help with the pain. Patient thinks that she needs to go to ER. Advised Clarence that with fatigue and significant pain in her right should she should go to ER to be evaluated. Clarence agrees and voices understanding. Patient's supervisor [employer] is going to take patient to ER. Lillie Marshall RN [facility]12-16-2024 Telephone encounter Note* Telephone Encounter - María Avila MA - 02/23/2024 2:30 PM EST Leia notified. [facility]12-16-2024 Miscellaneous Notes* Telephone Encounter - María Avila MA - 02/23/2024 2:30 PM EST Leia notified. * Telephone Encounter - Mika Kaplan APRN.CNP - 02/23/2024 11:37 AM EST Ok with therapy order Thank you Mika Kaplan APRN.CNP * Telephone Encounter - Pamela Singh LPN - 02/23/2024 10:08 AM EST Leia with [facility], PT calling. Pt out of the hospital last week and is in need of PT in home. Did re-evaluation and asking for verbal orders to continue PT in home. DX acute, chronicsystolic heart failure and kidney injury. Please advise Leia with a verbal orders. Pamela Singh LPN documented in this encounterSum[facility]12-16-2024 Telephone encounter Note * Telephone Encounter - Mika Kaplan APRN.CNP - 02/23/2024 11:37 AM EST Ok with therapy order Thank you Mika Kaplan APRN.OBED [facility]12-16-2024 Telephone encounter Note* Telephone Encounter - Pamela Singh LPN - 02/23/2024 10:08 AM EST Leia with [facility], PT calling. Pt out of the hospital last week and is in need of PT in home. Did re-evaluation and asking for verbal orders to continue PT in home. DX acute, chronicsystolic heart failure and kidney injury. Please advise Leia with a verbal orders. Pamela Singh LPN [facility]12-13-2024 NoteHNO ID: [id number] Author: BRADLEY FLORES RN Service: ? Author Type: Registered Nurse Type: Progress Notes Filed: 02/20/2024 11:24 Note Text: Transition Care Management (TCM) Initial Outreach PCP Update / Actionable Items HRTIC TCM Home Visit Referral Source of Stratification: [facility] Hospital Admission Status: Discharged Readmission Risk Score: n/a Patient's zip code: [address] Is zip code within program service area: No Patient meets program referral criteria: No Patient does not qualify for High Risk TCM Home Visit program due to: Readmission Risk Score does not meet criteria Disposition: Patient does not qualify for HRTIC, will provide TCM outreach follow-up for 30-days Patient Source: Wbt-gz-Fjbgaki (OON) Discharge Outreach Summary: Spoke with adryan Yeager artist's manager with [facility]- States Jayshree 's leg swelling currently improved. Will check BP and weight daily. Weight yesterday prior to dc was 291 lbs, today is 287 lbs- States pt is not having any dizziness, SOB , lightheadedness today. Discussed compression leg pumps - currently not working and they are attempting to obtain new pumps with documentation needed for insurance reapproval. Patient discharged from [facility] Discharge date: 02/19/24 Admitted for: Hypotension Readmission Risk: n/a Value-Based Contract: ACO Contact: Contact made with patient: Yes Hi, my name is Bradley Flores RN and I am calling from the [facility] on behalf of your Primary Care Provider, Marilee Thakur MD. I understand you were recently in the hospital, so I am calling to check in with you to ensure you are feeling well now that you are home. May I ask you a few questions related to your hospital stay and well-being? Yes Spoke to: [facility] Validation: Validated the person spoken to is actively involved in the patient's care. The patient was identified by Name and Date of . Symptoms: Are you feeling about the same, better or worse since leaving the hospital? Better Medications: Do you have any questions about taking your medications, including which medications you should be on, or do you need refills on your medications? No Medication Review: Partial mediation review completed, per patient preference Reviewed Torsemide dosing change with Shobha - pt taking 20mg daily , Also noted Midodrine was rx at [facility], added to med list. Lisinopril and K+ also dc'd - med list updated Discharge Instructions: Your Discharge Instructions / After Visit Summary (AVS) are important in guiding you through the recovery process. Do you have any questions related to your discharge instructions? No Home Care: Were you discharged with home care? No Equipment: Do you have all the necessary equipment and supplies needed at your home? No Reviewed equipment and supplies needed- Compression pumps are broken- Shobha states pt is wearing tyler wraps - difficult to maintain compliance with wearing. Facilitated any orders and/or provider updates on behalf of the patient as needed Social: We would like to make sure you have what you need so that your basics needs are met - including your personal safety, food, housing and medications. Would you like to speak with a social work sports team manager to help give you support for any of these needs? Not assessed It can be normal to feel anxious or down during a time like this. Would you like to talk to a mental health professional about how you have been feeling? not assessed Action Taken: No needs verbalized. No action required. Follow-Up Appointment: [Appointment / TCM Follow-up within 14 days] I would like to help you schedule a hospital follow-up virtual or telephone visit with your PCP. This is a great way for you to connect with your provider to ensure you have safely transitioned home. If you are agreeable, I will send your request to a lip of shank cutter who will contact and assist you with that appointment. This will give you an opportunity to ask any questions or address any concerns you may have with your PCP. Inform the patient that if they have any questions or concerns prior to that appointment, to call their PCP's office right away. Appointment Action: No action required; patient already has appointment scheduled. Education Heart Failure Education Provided Following a low sodium diet Weight monitoring and knowing your dry weight Heart failure medications and importance of compliance Symptom management related to heart failure Targets addressed / completed during outreach: Contact patient within two (2) business days Outreach Outcome: Enrolled in TCM Care Management partners utilized: N/A Bradley Flores RN February 20, 2024 11:05 [facility]12-13-2024 History of Present illness Narrative* Bradley Flores RN - 02/20/2024 10:58 AM EST Transition Care Management (TCM) Initial Outreach PCP Update / Actionable Items HRTIC TCM Home Visit Referral Source of Stratification: [facility] Hospital Admission Status: Discharged Readmission Risk Score: n/a Patient's zip code: [address] Is zip code within program service area: No Patient meets program referral criteria: No Patient does not qualify for High Risk TCM Home Visit program due to: Readmission Risk Score does not meet criteria Disposition: Patient does not qualify for HRTIC, will provide TCM outreach follow-up for 30-days Patient Source: Hmd-nl-Qywuwrd (OON) Discharge Outreach Summary: Spoke with adryan Yeager artist's manager with [facility]- States Jayshree 's leg swelling currently improved. Will check BP and weight daily. Weight yesterday prior to dc was 291 lbs, today is 287 lbs- States pt is not having any dizziness, SOB , lightheadedness today. Discussed compression leg pumps - currently not working and they are attempting to obtain new pumpswith documentation needed for insurance reapproval. Patient discharged from [facility] Discharge date: 02/19/24 Admitted for: Hypotension Readmission Risk: n/a Value-Based Contract: ACO Contact: Contact made with patient: Yes Hi, my name is Bradley Flores RN and I am calling from the [facility] on behalf of your Primary Care Provider, Marilee Thakur MD. I understand you were recently in the hospital, so I am calling to check in with you to ensure you are feeling well now that you are home. May I ask you a few questions related to your hospital stay and well-being? Yes Spoke to: [facility] Validation: Validated the person spoken to is actively involved in the patient's care. The patient was identified by Name and Date of . Symptoms: Are you feeling about the same, better or worse since leaving the hospital? Better Medications: Do you have any questions about taking your medications, including which medications you should be on, or do you need refills on your medications? No Medication Review: Partial mediation review completed, per patient preference Reviewed Torsemide dosing change with Shobha - pt taking 20mg daily , Also noted Midodrine was rx at [facility], added to med list. Lisinopril and K+ also dc'd - med list updated Discharge Instructions: Your Discharge Instructions / After Visit Summary (AVS) are important in guiding you through the recovery process. Do you have any questions related to your discharge instructions? No Home Care: Were you discharged with home care? No Equipment: Do you have all the necessary equipment and supplies needed at your home? No Reviewed equipment and supplies needed- Compression pumps are broken- Shobha states pt is wearing tyler wraps - difficult to maintain compliancewith wearing. Facilitated any orders and/or provider updates on behalf of the patient as needed Social: We would like to make sure you have what you need so that your basics needs are met - including your personal safety, food, housing and medications. Would you like to speak with a social work sports team manager to help give you support for any of these needs? Not assessed It can be normal to feel anxious or down during a time like this. Would you like to talk to a mental health professional about how you have been feeling? not assessed Action Taken: No needs verbalized. No action required. Follow-Up Appointment: [Appointment / TCM Follow-up within 14 days] I would like to help you schedule a hospital follow-up virtual or telephone visit with your PCP. This is a great way for you to connect with your provider to ensure you have safely transitioned home.If you are agreeable, I will send your request to a lip of shank cutter who will contact and assist you with that appointment. This will give you an opportunity to ask any questions or address any concerns youmay have with your PCP. Inform the patient that if they have any questions or concerns prior to that appointment, to call their PCP's office right away. Appointment Action: No action required; patient already has appointment scheduled. Education Heart Failure Education Provided Following a low sodium diet Weight monitoring and knowing your dry weight Heart failure medications and importance of compliance Symptom management related to heart failure Targets addressed / completed during outreach: Contact patient within two (2) business days Outreach Outcome: Enrolled in TCM Care Management partners utilized: N/A Bradley Flores RN February 20, 2024 11:05 AM documented in this encounterSum[facility]12[facility]24 NotePatient Outreach ([facility]) SIA ABDUL ([id number]) 1980 F Date Time Provider Department 02/20/24 BRADLEY FLORES During your visit today, we recorded the following information about you: Bradley Flores RN 02/20/2024 11:24 AM Signed Transition Care Management (TCM) Initial Outreach PCP Update / Actionable Items HRTIC TCM Home Visit Referral Source of Stratification: [facility] Hospital Admission Status: Discharged Readmission Risk Score: n/a Patient's zip code: [address] Is zip code within program service area: No Patient meets program referral criteria: No Patient does not qualify for High Risk TCM Home Visit program due to: Readmission Risk Score does not meet criteria Disposition: Patient does not qualify for HRTIC, will provide TCM outreach follow-up for 30-days Patient Source: Dcl-hi-Xpzlobn (OON) Discharge Outreach Summary: Spoke with adryan Yeager artist's manager with [facility]- States Jayshree 's leg swelling currently improved. Will check BP and weight daily. Weight yesterday prior to dc was 291 lbs, today is 287 lbs- States pt is not having any dizziness, SOB , lightheadedness today. Discussed compression leg pumps - currently not working and they are attempting to obtain new pumps with documentation needed for insurance reapproval. Patient discharged from [facility] Discharge date: 02/19/24 Admitted for: Hypotension Readmission Risk: n/a Value-Based Contract: ACO Contact: Contact made with patient: Yes Hi, my name is Bradley Flores RN and I am calling from the [facility] on behalf of your Primary Care Provider, Marilee Thakur MD. I understand you were recently in the hospital, so I am calling to check in with you to ensure you are feeling well now that you are home. May I ask you a few questions related to your hospital stay and well-being? Yes Spoke to: Shobha RN senior living Validation: Validated the person spoken to is actively involved in the patient's care. The patient was identified by Name and Date of . Symptoms: Are you feeling about the same, better or worse since leaving the hospital? Better Medications: Do you have any questions about taking your medications, including which medications you should be on, or do you need refills on your medications? No Medication Review: Partial mediation review completed, per patient preference Reviewed Torsemide dosing change with Shobha - pt taking 20mg daily , Also noted Midodrine was rx at [facility], added to med list. Lisinopril and K+ also dc'd - med list updated Discharge Instructions: Your Discharge Instructions / After Visit Summary (AVS) are important in guiding you through the recovery process. Do you have any questions related to your discharge instructions? No Home Care: Were you discharged with home care? No Equipment: Do you have all the necessary equipment and supplies needed at your home? No Reviewed equipment and supplies needed- Compression pumps are broken- Shobha states pt is wearing tyler wraps - difficult to maintain compliance with wearing. Facilitated any orders and/or provider updates on behalf of the patient as needed Social: We would like to make sure you have what you need so that your basics needs are met - including your personal safety, food, housing and medications. Would you like to speak with a social work sports team manager to help give you support for any of these needs? Not assessed It can be normal to feel anxious or down during a time like this. Would you like to talk to a mental health professional about how you have been feeling? not assessed Action Taken: No needs verbalized. No action required. Follow-Up Appointment: [Appointment / TCM Follow-up within 14 days] I would like to help you schedule a hospital follow-up virtual or telephone visit with your PCP. This is a great way for you to connect with your provider to ensure you have safely transitioned home. If you are agreeable, I will send your request to a lip of shank cutter who will contact and assist you with that appointment. This will give you an opportunity to ask any questions or address any concerns you may have with your PCP. Inform the patient that if they have any questions or concerns prior to that appointment, to call their PCP's office right away. Appointment Action: No action required; patient already has appointment scheduled. Education Heart Failure Education Provided Following a low sodium diet Weight monitoring and knowing your dry weight Heart failure medications and importance of compliance Symptom management related to heart failure Targets addressed / completed during outreach: Contact patient within two (2) business days Outreach Outcome: Enrolled in TCM Care Management partners utilized: N/A Bradley Flores RN [facility] (more content not included)...[facility]12-12-2024 Note [facility]12-09-2024 NoteHNO ID: [id number] Author: MARILEE THAKUR MD Service: ? Author Type: Physician Type: Progress Notes Filed: 02/16/2024 17:50 Note Text: Reason for Visit Patient presents with: Recheck: Medication Sia Abdul is a 42 year old female [...] massagers and she is on the lasix. 01/12/2024: The patient was admitted from December 26 to January 01 for 30 pound weight gain which is thought to be from water weight gain. She was in the ICU and was diuresed her left ventricular ejection fraction was found to be 55%. The right ventricle was mildly dilated with mild global right ventricular systolic dysfunction she also had moderate tricuspid valve insufficiency which is 2+ and her pulmonary artery systolic pressure is 67 which is elevated. On review of her discharge reported says she has acute respiratory failure with hypoxia and hypercapnia. 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 CTA was done to rule out pulmonary embolism and it showed no coronary artery calcifications. 02/16/24: Here for follow up. Her bp is on the lower side but she has not complaints. She denies feeling tired, fatigued, dizzy, less energy. Patient does not feel anything different of late. She is on torsemide 40 , 2 times a day and Metolazone 2.5 mgs daily but she has not lost weight , although she has not gained any weight. Patient denies feeling chest patient and sob, the 20 pounds water weight seems to be more in the abdomen and legs as opposed to the chest. She did get blood work done which showed normal potassium, sodium and magnesium is high. Her bp was extremely low the last time. Patient did not get her lymphedema compression pumps. She is elevating her legs multiple times a day. She is going to get tyler wraps all the way to her hips but patient does not like that as much. Reviewed labs, mag is high at 2.9, we can stop the supplementation. Her white count was elevated. She has been to the lung doctor had a sleep study this week and she may be on oxygen in the night. She is following a fluid restriction. No problem-specific Assessment AND Plan notes found [...] reviewed and discussed today Current Outpatient Medications: mometasone-formoterol (DULERA) 100-5 mcg/actuation inhaler fluticasone (FLONASE) 50 mcg/actuation nasal spray diphenoxylate-atropine (LOMOTIL) 2.5-0.025 mg per tablet ondansetron (ZOFRAN) 4 mg tablet aspirin 81 mg chewable tablet magnesium oxide (MAG-OX) 400 mg (241.3 mg magnesium) tablet metOLazone (ZAROXOLYN) 2.5 mg tablet tor (more content not included)...[facility]12-09-2024 History of Present illness Narrative* Marilee Thakur MD - 02/16/2024 3:26 PM EST Reason for Visit Patient presents with: Recheck: Medication Sia Abdul is a 42 year old female who presents here today for Above Complaints.. Health Maintenance HEPATITIS B(1 of 3 - 3-dose series) SPIROMETRY PNEUMOCOCCAL(2 - PCV) DEPRESSION ASSESSMENT MAMMOGRAM KALPESH Martell is a very pleasant 41-year-old woman with past medical history of Prader- Willi hypothyroidism, hypothalamic hypogonadism syndrome, lymphedema of the extremities, sleep apnea, mild intermittent asthma, venous insufficiency, obstructive sleep apnea and history of DVT, morbid obesity, who is here for an annual physical. Lymphedema: she has remained around 10 pounds heavier than before in the past year. There is accumulation of more fluid in the lower extremities. Her current compression wraps are not working and thecompression stockings are rolling a down easy and she needs longer and newer ones. Compression therapy machine is not working well for her. Hypothyroidism. She is doing well on her current dose of Synthroid. Denies fatigue, cold intolerance and swelling in feet. TSH recently checked and normal. Patient does the lymphedema massagers and she is on the lasix. 01/12/2024: The patient was admitted from December 26 to January 01 for 30 pound weight gain which isthought to be from water weight gain. She was in the ICU and was diuresed her left ventricular ejection fraction was found to be 55%. The right ventricle was mildly dilated with mild global right ventricular systolic dysfunction she also had moderate tricuspid valve insufficiency which is 2+ and her pulmonary artery systolic pressure is 67 which is elevated. On review of her discharge reported says she has acute respiratory failure with hypoxia and hypercapnia. 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 CTA was done torule out pulmonary embolism and it showed no coronary artery calcifications. 02/16/24: Here for follow up. Her bp is on the lower side but she has not complaints. She denies feeling tired, fatigued, dizzy, less energy. Patient does not feel anything different of late. She is on torsemide 40 , 2 times a day and Metolazone 2.5 mgs daily but she has not lost weight , although she has not gained any weight. Patient denies feeling chest patient and sob, the 20 pounds water weight seems to be more in the abdomen and legs as opposed to the chest. She did get blood work done which showed normal potassium, sodium and magnesium is high. Her bp was extremely low the last time. Patient did not get her lymphedema compression pumps. She is elevating her legs multiple times a day. She is going to get tyler wraps all the way to her hips but patient does not like that as much. Reviewed labs, mag is high at 2.9, we can stop the supplementation. Her white count was elevated. She has been to the lung doctor had a sleep study this week and she may be on oxygen in the night. She is following a fluid restriction. No problem-specific Assessment & Plan notes found [...] reviewed and discussed today Current Outpatient Medications: mometasone-formoterol (DULERA) 100-5 mcg/actuation inhaler fluticasone (FLONASE) 50 mcg/actuation nasal spray diphenoxylate-atropine (LOMOTIL) 2.5-0.025 mg per tablet ondansetron (ZOFRAN) 4 mg tablet aspirin 81 mg chewable tablet magnesium oxide (MAG-OX) 400 mg (241.3 mg magnesium) tablet metOLazone (ZAROXOLYN) 2.5 mg tablet torsemide (DEMADEX) 20 mg tablet carvedilol (COREG) 3.125 mg tablet lisinopril (ZESTRIL) 5 mg tablet potassium chloride 20 mEq TbER ammonium lactate (LAC-HYDRIN) 12 % cream Leg Brace (TRUE CMFT KNEE COMPRESSION) misc multivitamin-ferrous fumarate-folic acid (CERTAVITE-ANTIOXIDANT) Sstsg-4-JJQ-EPA-Fish Oil 1,000 mg (120 mg-180 mg) cap EPINEPHrine (EPIPEN) 0.3 mg/0.3 mL auto-injector levothyroxine (SYNTHROID) 100 mcg tablet nystatin (NYAMYC) powder OYSTER SHELL CALCIUM-VITAMIN D 500 mg-5 mcg (200 unit) per tablet clotrimazole (LOTRIMIN) 1 % cream albuterol HFA (VENTOLIN HFA) 90 mcg/actuation inhaler naproxen (NAPROSYN) 500 mg tablet acetaminophen (TYLENOL EXTRA STRENGTH) 500 mg tablet MEDICAL SUPPLY IRAIDA 0.35 mg tablet Gauze Bandage 2 X 2 bndg cetirizine (ZYRTEC) 10 mg tablet COMPOUNDED PRESCRIPTION COMPOUNDED PRESCRIPTION COMPOUNDED PRESCRIPTION Desogestrel-Ethinyl Estradiol (APRI) 0.15-0.03 mg per tablet diphenhydrAMINE (BENADRYL) 25 mg tablet Review of Systems CONSTITUTIONAL: No fevers, chills [...] or numbness of concern. Physical Exam BP (!) 78/58 (BP Site: Right Arm) Pulse (!) 57 Wt 131.1 kg (289 lb) LMP 05/13/2007 SpO2 93% BMI 63.65 kg/m General appearance: Well appearing, alert, in [...] significant in the lower extremities. ASSESSMENT/PLAN: 1. Acute systolic congestive heart failure (HCC) - ICD9: 428.21, 428.0, ICD10: I50.21 (primary diagnosis) We are having a hard time with getting her to lose the water weight, the compression pumps may helpher 2. Lymphedema - ICD9: 457.1, ICD10: I89.0 - CONSULT TO VASCULAR MEDICINE 3. Hypotension, unspecified hypotension type - ICD9: 458.9, ICD10: I95.9 We are concerned about the bp being on the lower side but she has no symptoms. 4. Acute on chronic diastolic congestive heart failure (HCC) - ICD9: 428.33, 428.0, ICD10: I50.33 - HFpEF 50+ - Continue current medications 5. Chronic obstructive pulmonary disease, unspecified COPD type (HCC) - ICD9: 496, ICD10: J44.9 She in on albuterol and Dulera, her symptoms are stable, to continue. 6. Hypothalamic hypogonadism (HCC) - ICD9: 253.4, ICD10: E23.0 She is on APRI to continue. 7. Prader-Willi syndrome - ICD9: 759.81, ICD10: Q87.11 - CONSULT TO VASCULAR MEDICINE Marilee Thakur MD [facility] * Telephone Encounter - Aaliyah Gonzalez MA - 02/10/2024 4:45 PM EST Leia notified and verbalized understanding. Aaliyah Gonzalez MA [facility]12-03-2024 Miscellaneous Notes* Telephone Encounter - Aaliyah Gonzalez MA - 02/10/2024 4:45 PM EST Leia notified and verbalized understanding. Aaliyah Gonzalez MA * Telephone Encounter - Marilee Thakur MD - 02/10/2024 4:40 PM EST Verbal ok for the same Regards, Marilee Thakur MD * Telephone Encounter - Pamela Singh LPN - 02/10/2024 11:07 AM EST Leia with [facility], PT calling to see if you will give verbal orders for PT to comein to the home after hospitalization. DX. weakness and difficulty getting around. Please advise Leia with Verbal order to follow and sign. Pamela Singh LPN documented [facility] encounterSum[facility]12-[facility] Telephone encounter Note * Telephone Encounter - Marilee Thakur MD - 02/10/2024 4:40 PM EST Verbal ok for the same Regards, Marilee Thakur MD [facility]12-03-2024 Telephone encounter Note* Telephone Encounter - Pamela Singh LPN - 02/10/2024 11:07 AM EST Leia with [facility], PT calling to see if you will give verbal orders for PT to comein to the home after hospitalization. DX. weakness and difficulty getting around. Please advise Leia with Verbal order to follow and sign. Pamela Singh LPN [facility]12-02-2024 Telephone encounter Note* Telephone Encounter - Pascale Cerna LPN - 02/09/2024 2:35 PM EST Prescription Refill Information The patient has been identified by name and date of : Yes Caregiver verified no other encounters exist for this prescription request: Yes Caregiver confirmed with patient/requestor that no other refills are due, in the near future, with this provider at this time: Yes The last office visit in the department: 02/06/24 Does the patient have a future office visit with this provider/department: Yes Requested Prescriptions Pending Prescriptions Disp Refills mometasone-formoterol (DULERA) 100-5 mcg/actuation inhaler 13 g 10 Sig: Inhale 2 Puffs as instructed two times a day. fluticasone (FLONASE) 50 mcg/actuation nasal spray 16 g 10 Sig: INSTILL 2 SPRAYS IN EACH NOSTRIL DAILY Pascale Cerna LPN February 09, 2024 2:37 PM [facility]12-02-2024 Miscellaneous Notes* Telephone Encounter - Pascale Cerna LPN - 02/09/2024 2:35 PM EST Prescription Refill Information The patient has been identified by name and date of : Yes Caregiver verified no other encounters exist for this prescription request: Yes Caregiver confirmed with patient/requestor that no other refills are due, in the near future, with this provider at this time: Yes The last office visit in the department: 02/06/24 Does the patient have a future office visit with this provider/department: Yes Requested Prescriptions Pending Prescriptions Disp Refills mometasone-formoterol (DULERA) 100-5 mcg/actuation inhaler 13 g 10 Sig: Inhale 2 Puffs as instructed two times a day. fluticasone (FLONASE) 50 mcg/actuation nasal spray 16 g 10 Sig: INSTILL 2 SPRAYS IN EACH NOSTRIL DAILY Pascale Cerna LPN February 09, 2024 2:37 PM documented in this encounterSum[facility]11-29-2024 NoteHNO ID: [id number] Author: MARILEE THAKUR MD Service: ? Author Type: Physician Type: Progress Notes Filed: 02/06/2024 14:56 Note Text: [facility] History of Present illness Narrative* Marilee Thakur MD - 02/06/2024 12:49 PM EST Duplicate note * Marilee Thakur MD - 02/06/2024 11:37 AM EST Reason for Visit Patient presents with: Hospital F/U: TCM [facility] 01/26/24 dx CHF Sia Abdul is a 42 year old female who presents here today for Above Complaints.. Health Maintenance HEPATITIS B(1 of 3 - 3-dose series) SPIROMETRY PNEUMOCOCCAL(2 - PCV) DEPRESSION ASSESSMENT MAMMOGRAM KALPESH Martell is a very pleasant 41-year-old woman with past medical history of Prader- Willi hypothyroidism, hypothalamic hypogonadism syndrome, lymphedema of the extremities, sleep apnea, mild intermittent asthma, venous insufficiency, obstructive sleep apnea and history of DVT, morbid obesity, who is here for an annual physical. Lymphedema: she has remained around 10 pounds heavier than before in the past year. There is accumulation of more fluid in the lower extremities. Her current compression wraps are not working and thecompression stockings are rolling a down easy and she needs longer and newer ones. Compression therapy machine is not working well for her. Hypothyroidism. She is doing well on her current dose of Synthroid. Denies fatigue, cold intolerance and swelling in feet. TSH recently checked and normal. Patient does the lymphedema massagers and she is on the lasix. 01/12/2024: The patient was admitted from December 26 to January 01 for 30 pound weight gain which isthought to be from water weight gain. She was in the ICU and was diuresed her left ventricular ejection fraction was found to be 55%. The right ventricle was mildly dilated with mild global right ventricular systolic dysfunction she also had moderate tricuspid valve insufficiency which is 2+ and her pulmonary artery systolic pressure is 67 which is elevated. On review of her discharge reported says she has acute respiratory failure with hypoxia and hypercapnia. 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 CTA was done torule out pulmonary embolism and it showed no coronary artery calcifications. 02/06/24: She is here with her furnace caretaker. TCM Eligibility Documentation Program: Transitional Care Management Status: Enrolled Effective Dates: 01/28/2024 - present Responsible Staff: Bradley Flores RN Discharge date: 01/26/2024 (Program start) Date of initial contact: 01/28/2024 Initial contact Target status: Successful; Contact made within 2 business days post-discharge Patient was admitted from January 22 to January 25 with CHF exacerbation. She has normal systolicfunction of the left ventricle but the right ventricle has dysfunction, is enlarged and it is not working very well. She also has mitral regurgitation which is contributing to her presentation in addition to pulmonary hypertension which is likely class II. Her normal weight is around 115 kg but shewas at 134 in the hospital and now is 130. Recently she was more at 125. She is back on Lasix but that is not working very well for her. She is seeing cardiology and pulmonology for her pulm hypertension. She says she is compliant with a sleep machine but there is concerns about that. Out the hospital she was 290 lbs and today she is 287. 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 She is on toresemide, I am adding metolazone to the mix of medication. No problem-specific Assessment & Plan notes found [...] reviewed and discussed today Current Outpatient Medications: diphenoxylate-atropine (LOMOTIL) 2.5-0.025 mg per tablet ondansetron (ZOFRAN) 4 mg tablet aspirin 81 mg chewable tablet fluticasone (FLONASE) 50 mcg/actuation nasal spray torsemide (DEMADEX) 20 mg tablet carvedilol (COREG) 3.125 mg tablet lisinopril (ZESTRIL) 5 mg tablet potassium chloride 20 mEq TbER ammonium lactate (LAC-HYDRIN) 12 % cream multivitamin-ferrous fumarate-folic acid (CERTAVITE-ANTIOXIDANT) Hspgq-4-XIU-EPA-Fish Oil 1,000 mg (120 mg-180 mg) cap EPINEPHrine (EPIPEN) 0.3 mg/0.3 mL auto-injector levothyroxine (SYNTHROID) 100 mcg tablet DULERA 100-5 mcg/actuation inhaler nystatin (NYAMYC) powder OYSTER SHELL CALCIUM-VITAMIN D 500 mg-5 mcg (200 unit) per tablet clotrimazole (LOTRIMIN) 1 % cream albuterol HFA (VENTOLIN HFA) 90 mcg/actuation inhaler naproxen (NAPROSYN) 500 mg tablet acetaminophen (TYLENOL EXTRA STRENGTH) 500 mg tablet IRAIDA 0.35 mg tablet cetirizine (ZYRTEC) 10 mg tablet Leg Brace (TRUE CMFT KNEE COMPRESSION) [facility] [place]ICAL SUPPLY Gauze Bandage 2 X 2 bndg Desogestrel-Ethinyl Estradiol (APRI) 0.15-0.03 mg per tablet diphenhydrAMINE (BENADRYL) 25 mg tablet COMPOUNDED PRESCRIPTION COMPOUNDED PRESCRIPTION COMPOUNDED [...] or numbness of concern. Physical Exam BP 112/77 Pulse 65 Wt 130.2 kg (287 lb 0.8 oz) LMP 05/13/2007 SpO2 96% BMI 63.22 kg/m General appearance: Well appearing, alert, in [...] significant in the lower extremities. ASSESSMENT/PLAN: 1. Hospital discharge follow-up - ICD9: V67.59, ICD10: Z09 (primary diagnosis) She is on torsemide at 40 mgs 2 times a day , and I am adding metolazone. Bmp in a weeks time. She was asked to keep a tight watch of her weight. And report to me with an increase in weight. 2. Encounter for immunization - ICD9: V03.89, ICD10: Z23 - INFLUENZA VACCINE, AGE 6MO-64YR, TRIVALENT (AFLURIA, FLULAVAL, FLUVIRIN, FLUZONE) 3. Acute congestive heart failure, unspecified heart failure type (HCC) - ICD9: 428.0, ICD10: I50.9 - HFpEF 50+ - Continue current medications - COMPLETE BLOOD COUNT AND DIFFERENTIAL - COMPREHENSIVE METABOLIC PANEL 4. Pulmonary hypertension (HCC) - ICD9: 416.8, ICD10: I27.20 She is following up with pulm and cards and she will be having , has upcoming apt with them. 5. Right ventricular dysfunction - ICD9: 429.9, ICD10: I51.9 She also has MR Which is likely making things worse. Marilee Thakur MD documented in this encounterSum[facility]11-29-2024 NoteHNO ID: [id number] Author: MARILEE THAKUR MD Service: ? Author Type: Physician Type: Progress Notes Filed: 02/06/2024 14:56 Note Text: Reason for Visit Patient presents with: Hospital F/U: [facility] 01/26/24 dx CHF Sia Abdul is a 42 year old female who presents here today for Above Complaints.. Health Maintenance HEPATITIS B(1 of 3 - 3-dose series) SPIROMETRY PNEUMOCOCCAL(2 - PCV) DEPRESSION ASSESSMENT MAMMOGRAM HPI Jayshree is a very pleasant 41-year-old [...] massagers and she is on the lasix. 01/12/2024: The patient was admitted from December 26 to January 01 for 30 pound weight gain which is thought to be from water weight gain. She was in the ICU and was diuresed her left ventricular ejection fraction was found to be 55%. The right ventricle was mildly dilated with mild global right ventricular systolic dysfunction she also had moderate tricuspid valve insufficiency which is 2+ and her pulmonary artery systolic pressure is 67 which is elevated. On review of her discharge reported says she has acute respiratory failure with hypoxia and hypercapnia. 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 CTA was done to rule out pulmonary embolism and it showed no coronary artery calcifications. 02/06/24: She is here with her furnace caretaker. TCM Eligibility Documentation Program: Transitional Care Management Status: Enrolled Effective Dates: 01/28/2024 - present Responsible Staff: Bradley Flores RN Discharge date: 01/26/2024 (Program start) Date of initial contact: 01/28/2024 Initial contact Target status: Successful; Contact made within 2 business days post-discharge Patient was admitted from January 22 to January 25 with CHF exacerbation. She has normal systolic function of the left ventricle but the right ventricle has dysfunction, is enlarged and it is not working very well. She also has mitral regurgitation which is contributing to her presentation in addition to pulmonary hypertension which is likely class II. Her normal weight is around 115 kg but she was at 134 in the hospital and now is 130. Recently she was more at 125. She is back on Lasix but that is not working very well for her. She is seeing cardiology and pulmonology for her pulm hypertension. She says she is compliant with a sleep machine but there is concerns about that. Out the hospital she was 290 lbs and today she is 287. 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 She is on toresemide, I am adding metolazone to the mix of medication. No problem-specific Assessment AND Plan notes found [...] reviewed and discussed today Current Outpatient Medications: diphenoxylate-atropine (LOMOTIL) 2.5-0.025 mg per tablet ondansetr (more content not included)...[facility]11-27-2024 NoteHNO ID: [id number] Author: BRADLEY FLORES RN Service: ? Author Type: Registered Nurse Type: Progress Notes Filed: 02/04/2024 10:38 Note Text: Transitional Care Management (TCM) Follow-Up Note PCP Update / Actionable Items N/A - No specialty updates needed Patient Source: Drj-su-Wrdgipa (OON) Discharge Outreach Summary: Shobha Martell is doing well on Torsemide BID. She is losing 2-3 lbs a day. She is elevating her legs often during the day. Has been watching sodium and fluid rest. closely. Had one episode of dizziness while attempting to stand earlier this week and they are monitoring closely. PCP f/u 02/05 Patient discharged from [facility] Discharge date: 01/26/24 Admitted for: CHF Readmission Risk: n/a Value-Based Contract: ACO Contact: Contact made with patient: Yes Spoke to: Shobha ARREGUIN , development system efficiency manager Validation: Validated the person spoken to is actively involved in the patient's care. The patient was identified by Name and Date of . I'd like to get an update on how you're doing since our last phone call. Is now a good time to talk? Yes Symptoms: Are you feeling about the same, better or worse since leaving the hospital? Better Weekly Outreach: 1st Outreach Medications: Do you have any questions about taking your medications, including which medications you should be on, or do you need refills on your medications? No Patient Questions / Concerns: Do you have any questions related to your discharge? No Appointment / TCM Follow-Up: Have you had a follow-up visit with your Primary Care Provider or Specialist since you were discharged? No Do you need any assistance with scheduling or changing your follow-up appointments? Patient already has an appointment scheduled Education Heart Failure Education Provided Following a low sodium diet Weight monitoring and knowing your dry weight Fluid restrictions Symptom management related to heart failure Targets addressed / completed during outreach: N/A Outreach Outcome: Continue TCM Outreach for remainder of 30 days Care Management partners utilized: N/A Bradley Flores RN February 04, 2024 10:35 [facility]11-27-2024 History of Present illness Narrative* Bradley Flores RN - 02/04/2024 10:33 AM EST Transitional Care Management (TCM) Follow-Up Note PCP Update / Actionable Items N/A - No specialty updates needed Patient Source: Mie-sp-Rprimqt (OON) Discharge Outreach Summary: Shobha Martell is doing well on Torsemide BID. She is losing 2-3 lbs a day. She is elevating her legs often during the day. Has been watching sodium and fluid rest. closely. Had one episode of dizziness while attempting to stand earlier this week and they are monitoring closely. PCP f/u 02/05 Patient discharged from [facility] Discharge date: 01/26/24 Admitted for: CHF Readmission Risk: n/a Value-Based Contract: ACO Contact: Contact made with patient: Yes Spoke to: Shobha ARREGUIN , development system efficiency manager Validation: Validated the person spoken to is actively involved in the patient's care. The patient was identified by Name and Date of . I'd like to get an update on how you're doing since our last phone call. Is now a good time to talk? Yes Symptoms: Are you feeling about the same, better or worse since leaving the hospital? Better Weekly Outreach: 1st Outreach Medications: Do you have any questions about taking your medications, including which medications you should be on, or do you need refills on your medications? No Patient Questions / Concerns: Do you have any questions related to your discharge? No Appointment / TCM Follow-Up: Have you had a follow-up visit with your Primary Care Provider or Specialist since you were discharged? No Do you need any assistance with scheduling or changing your follow-up appointments? Patient alreadyhas an appointment scheduled Education Heart Failure Education Provided Following a low sodium diet Weight monitoring and knowing your dry weight Fluid restrictions Symptom management related to heart failure Targets addressed / completed during outreach: N/A Outreach Outcome: Continue TCM Outreach for remainder of 30 days Care Management partners utilized: N/A Bradley Flores RN February 04, 2024 10:35 AM [facility] Telephone encounter Note * Telephone Encounter - Aaliyah Gonzalez MA - 02/04/2024 8:56 AM EST Clarence at [facility] notified. Aaliyah Gonzalez MA [facility]11-27-2024 Miscellaneous Notes* Telephone Encounter - Aaliyah Gonzalez MA - 02/04/2024 8:56 AM EST Clarence at [facility] notified. Aaliyah Gonzalez MA * Telephone Encounter - Marilee Thakur MD - 02/03/2024 5:06 PM EST Yes will sign Marilee Lassiter MD * Telephone Encounter - Lillie Marshall RN - 02/03/2024 1:32 PM EST Clarence from [facility] calls asking if provider will continue to sign orders for retirement, physical therapy, and occupational therapy. Lillie Marshall RN documented in this encounterSum[facility]11-27-2024 NotePatient Outreach ([facility]) SIA ABDUL ([id number]) 1980 F Date Time Provider Department 02/04/24 BRADLEY FLORES During your visit today, we recorded the following information about you: Bradley Flores, RODRÍGUEZ 02/04/2024 10:38 AM Signed Transitional Care Management (TCM) Follow-Up Note PCP Update / Actionable Items N/A - No specialty updates needed Patient Source: Yjh-nc-Lmwlvek (OON) Discharge Outreach Summary: Shobha reports Jayshree is doing well on Torsemide BID. She is losing 2-3 lbs a day. She is elevating her legs often during the day. Has been watching sodium and fluid rest. closely. Had one episode of dizziness while attempting to stand earlier this week and they are monitoring closely. PCP f/u 02/05 Patient discharged from [facility] Discharge date: 01/26/24 Admitted for: CHF Readmission Risk: n/a Value-Based Contract: ACO Contact: Contact made with patient: Yes Spoke to: Shobha ARREGUIN , development system efficiency manager Validation: Validated the person spoken to is actively involved in the patient's care. The patient was identified by Name and Date of . I'd like to get an update on how you're doing since our last phone call. Is now a good time to talk? Yes Symptoms: Are you feeling about the same, better or worse since leaving the hospital? Better Weekly Outreach: 1st Outreach Medications: Do you have any questions about taking your medications, including which medications you should be on, or do you need refills on your medications? No Patient Questions / Concerns: Do you have any questions related to your discharge? No Appointment / TCM Follow-Up: Have you had a follow-up visit with your Primary Care Provider or Specialist since you were discharged? No Do you need any assistance with scheduling or changing your follow-up appointments? Patient already has an appointment scheduled Education Heart Failure Education Provided Following a low sodium diet Weight monitoring and knowing your dry weight Fluid restrictions Symptom management related to heart failure Targets addressed / completed during outreach: N/A Outreach Outcome: Continue TCM Outreach for remainder of 30 days Care Management partners utilized: N/A Bradley Flores RN February 04, 2024 10:35 AM Allergies As of Date: 02/04/2024 Noted Allergy Reaction BEE STING 02/28/2023 10 - Anaphylaxis DILANTIN (PHENYTOIN SODIUM EXTEND*01/28/2006 Date Reviewed: 01/12/2024 Reviewed by: Aaliyah Gonzalez MA - Fully Assessed Prescriptions as of 02/04/2024 - fluticasone (FLONASE) 50 mcg/actuation nasal spray INSTILL 2 SPRAYS IN EACH NOSTRIL DAILY - torsemide (DEMADEX) 20 mg tablet Take 1 tablet by mouth two times a day. - carvedilol (COREG) 3.125 mg tablet Take 1 tablet by mouth two times a day. - lisinopril (ZESTRIL) 5 mg tablet Take 1 tablet by mouth once daily. - potassium chloride 20 mEq TbER Take 1 tablet by mouth once daily. - ammonium lactate (LAC-HYDRIN) 12 % cream APPLY TOPICALLY TO AFFECTED AREA(S) ON LEGS AT BEDTIME - Leg Brace (TRUE CMFT KNEE COMPRESSION) misc 1 Each once daily. - multivitamin-ferrous fumarate-folic acid (CERTAVITE-ANTIOXIDANT) Take 1 tablet by mouth once daily. - Gtkgv-3-KKR-EPA-Fish Oil 1,000 mg (120 mg-180 mg) cap [...] Take 1 tablet by mouth every 6 h (more content not included)...[facility]11-26-2024 Telephone encounter Note* Telephone Encounter - Marilee Thakur MD - 02/03/2024 5:06 PM EST Yes will sign Marilee Lassiter MD [facility]11-26-2024 Telephone encounter Note* Telephone Encounter - Lillie Marshall RN - 02/03/2024 1:32 PM EST Clarence from [facility] calls asking if provider will continue to sign orders for retirement, physical therapy, and occupational therapy. Lillie Marshall RN [facility]11-25-2024 Telephone encounter Note* Telephone Encounter - Lillie Marshall RN - 02/02/2024 11:53 AM EST The patient has been identified by name and date of : Yes Caregiver verified no other encounters exist for this prescription request: Yes Caregiver confirmed with patient/requestor that no other refills are due, in the near future, with this provider at this time: Yes The last office visit in the department: 01/12/2024 Does the patient have a future office visit with this provider/department: Yes 02/06/2024 Requested Prescriptions Pending Prescriptions Disp Refills fluticasone (FLONASE) 50 mcg/actuation nasal spray 16 g 10 Sig: INSTILL 2 SPRAYS IN EACH NOSTRIL DAILY Lillie Marshall RN February 02, 2024 11:54 AM [facility]11-25-2024 Miscellaneous Notes* Telephone Encounter - Lillie Marshall RN - 02/02/2024 11:53 AM EST The patient has been identified by name and date of : Yes Caregiver verified no other encounters exist for this prescription request: Yes Caregiver confirmed with patient/requestor that no other refills are due, in the near future, with this provider at this time: Yes The last office visit in the department: 01/12/2024 Does the patient have a future office visit with this provider/department: Yes 02/06/2024 Requested Prescriptions Pending Prescriptions Disp Refills fluticasone (FLONASE) 50 mcg/actuation nasal spray 16 g 10 Sig: INSTILL 2 SPRAYS IN EACH NOSTRIL DAILY Lillie Marshall RN February 02, 2024 11:54 AM documented in this encounterSumma Health [facility]11-20-2024 NoteHNO ID: [id number] Author: NEETA RUTHERFORD, ? Service: ? Author Type: Patient Director Call Type: Progress Notes Filed: 01/28/2024 10:04 Note Text: POPULATION HEALTH NAVIGATION OUTREACH Action/FYI Scheduled TCM appt 02-06-2024 Tcm eligible until 02-09-2024 Patient discharged from [facility] Discharge date: 01/26/24 Admitted for: CHF Reason for Outreach Community Monitoring/Network Navigator Pools AND Phone Line: TCM Patient Contacted: Spoke to patient/parent/or legal guardian Patient identified by name and : Yes Community Monitoring/Network Navigator Pools AND Phone Line actions taken: Patient scheduled: Hospital Follow-up 02/06/2024 in [facility] with MARILEE THAKUR - hospital follow up , tcm eligible until 02-09-2024 02/20/2024 in [facility] with MARILEE THAKUR - 3 mo follow up; BL lymphedema 03/22/2024 in [facility] with OLDER, MIKA - physical Navigation Signature: Neeta Rutherford Population Health Navigator January 28, 2024 10:03 [facility]11-20-2024 History of Present illness Narrative* Neeta Rutherford - 01/28/2024 10:03 AM EST POPULATION HEALTH NAVIGATION OUTREACH Action/FYI Scheduled TCM appt 02-06-2024 Tcm eligible until 02-09-2024 Patient discharged from [facility] Discharge date: 01/26/24 Admitted for: CHF Reason for Outreach Community Monitoring/Network Navigator Pools & Phone Line: TCM Patient Contacted: Spoke to patient/parent/or legal guardian Patient identified by name and : Yes Community Monitoring/Network Navigator Pools & Phone Line actions taken: Patient scheduled: Hospital Follow-up 02/06/2024 in [facility] with MARILEE THAKUR - hospital follow up , tcm eligible until 02-09-2024 02/20/2024 in [facility] with MARILEE THAKUR - 3 mo follow up; BL lymphedema 03/22/2024 in [facility] with OLDER, MIKA - physical Navigation Signature: Neeta Rutherford, Population Health Navigator January 28, 2024 10:03 AM * Bradley Flores RN - 01/28/2024 9:21 AM EST Transition Care Management (TCM) Initial Outreach Navigation Team Please assist with scheduling [facility] Hospital Discharge Follow up. TCM Eligible until 02/09/24. Please call Shobha Dallas pt 's development system efficiency manager at [phone] to schedule. Thank you [facility] TCM Home Visit Referral Source of Stratification: [facility] Hospital Admission Status: Discharged Readmission Risk Score: n/a Patient's zip code: [address] Is zip code within program service area: No Patient meets program referral criteria: No Patient does not qualify for High Risk TCM Home Visit program due to: Readmission Risk Score does not meet criteria Disposition: Patient does not qualify for [facility], will provide TCM outreach follow-up for 30-days Patient Source: Rme-sb-Gcudhge (OON) Discharge Outreach Summary: Shobha reports patient is feeling much improved since discharge. Had card. f/u with Dr. Abdul yesterday and Torsemide increased to 40mg BID. Weight yesterday was 290lbs- pt sleeping at this time and will take upon waking- plan is for daily weights. They will call cardiology 01/29 with a weight update. Shobha states pt is now on a 1000calorie /day low sodium diet and 6 cup daily fluid restriction. Reports Jayshree does want to lose weight and feel improved. Pt. encouraged to call PCP with any questions or concerns. Agrees to TCM 30 day following. Patient discharged from [facility] Discharge date: 01/26/24 Admitted for: CHF Readmission Risk: n/a Value-Based Contract: ACO Chief Complaint: Dyspnea, weight gain, edema. HPI Narrative The patient is a 43 y/o F w/ PMHx: Morbid obesity, COPD w/ allergic rhinitis, Pulmonary HTN following w/ Dr. 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, HTN, Hypothyroidism, Prader-Leandro syndrome who presents to the [facility] ED on 01/23/24 with history of increased swelling, edema with increasing shortness of breath and occasional dizziness recently started on new diuretic the Friday prior, most recent discharge 01/02/24 of note following evaluation and treatment of NSTEMI in the setting of Acute HFpEF exacerbation and following this noted ED visit 01/08/24 secondary to history of increased weight gain of 20 pounds at that point since her discharge with Lasix transition to twice daily with plan to follow-up with her physician at that time with most recent weights noted 01/08/2024 weight reportedly 273 pound 9.6 ounces--> 01/22/2024 weight 295 pounds 6.711 ounce prompting eventual ED evaluation to be cautious. Patient reports seeing a new tier lift truck operator in [place] the Friday prior who discontinued her Lasix and Bumex with initiation on decreased dose of Lasix 20 mg twice daily with plan at that time [place] tier lift truck operator on 01/23/2024 with similar symptoms to previous presentation with tightness in her chest, worsening edema, orthopnea, weight gain. Workup in the ED included T97.8, heart 67, BP 134/87, respiratory rate 16,97% room air, CBC with WBC 14.1, 112, MCV 101.6, platelet 172 with left shift, BMP with complex at 34, BUN/creatinine 29/0.73 otherwise unremarkable, troponin 10, BNP 38.5, magnesium 2.4, urinalysis not marked appearing, chest x- ray with no acute cardiopulmonary findings, EKG with SR without acute evidence of ischemia. Lasix 40 mg IV x 1 administered. Contact: Contact made with patient: Yes Hi, my name is Bradley Flores RN and I am calling from the [facility] on behalf of your Primary Care Provider, Marilee Thakur MD. I understand you were recently in the hospital, so I am calling to check in with you to ensure you are feeling well now that you are home. May I ask you a few questions related to your hospital stay and well-being? Yes Spoke to: Shobha Dallas , development system efficiency manager Validation: Validated the person spoken to is actively involved in the patient's care. The patient was identified by Name and Date of . Symptoms: Are you feeling about the same, better or worse since leaving the hospital? Better Medications: Do you have any questions about taking your medications, including which medications you should be on, or do you need refills on your medications? No Medication Review: Partial mediation review completed, per patient preference Discussed Torsemide dosing change- 40mg BID with cardiology 01/26 Discharge Instructions: Your Discharge Instructions / After Visit Summary (AVS) are important in guiding you through the recovery process. Do you have any questions related to your discharge instructions? No Home Care: Were you discharged with home care? No Equipment: Do you have all the necessary equipment and supplies needed at your home? Yes The patient verbalizes understanding the use of the equipment and supplies Social: We would like to make sure you have what you need so that your basics needs are met - including your personal safety, food, housing and medications. Would you like to speak with a social work sports team manager to help give you support for any of these needs? No It can be normal to feel anxious or down during a time like this. Would you like to talk to a mental health professional about how you have been feeling? No Action Taken: No needs verbalized. No action required. Follow-Up Appointment: [Appointment / TCM Follow-up within 14 days] I would like to help you schedule a hospital follow-up virtual or telephone visit with your PCP. This is a great way for you to connect with your provider to ensure you have safely transitioned home.If you are agreeable, I will send your request to a lip of shank cutter who will contact and assist you with that appointment. This will give you an opportunity to ask any questions or address any concerns youmay have with your PCP. Inform the patient that if they have any questions or concerns prior to that appointment, to call their PCP's office right away. Appointment Action: Patient desires an appointment. Complete Navigation Team box and route to [facility] ([id number]) for scheduling. Education Heart Failure Education Provided Following a low sodium diet Weight monitoring and knowing your dry weight Fluid restrictions Heart failure medications and importance of compliance When to call your provider Targets addressed / completed during outreach: Contact patient within two (2) business days Outreach Outcome: Enrolled in TCM Care Management partners utilized: Navigation Team Bradley Flores RN January 28, 2024 9:31 AM documented in this encounterSumma Health [facility]11-20-2024 NoteHNO ID: [id number] Author: BRADLEY FLORES RN Service: ? Author Type: Registered Nurse Type: Progress Notes Filed: 02/20/2024 11:23 Note Text: Transition Care Management (TCM) Initial Outreach Navigation Team Please assist with scheduling TCM Hospital Discharge Follow up. TCM Eligible until 02/09/24. Please call Shobha Dallas pt 's development system efficiency manager at [phone] to schedule. Thank you [facility] TCM Home Visit Referral Source of Stratification: TCM [facility] Hospital Admission Status: Discharged Readmission Risk Score: n/a Patient's zip code: [address] Is zip code within program service area: No Patient meets program referral criteria: No Patient does not qualify for High Risk TCM Home Visit program due to: Readmission Risk Score does not meet criteria Disposition: [facility], will provide TCM outreach follow-up for 30-days Patient Source: [id number]-Pzfbtqn (OON) Discharge Outreach Summary: Shobha reports patient is feeling much improved since discharge. Had card. f/u yesterday and Torsemide increased to 40mg BID. Weight yesterday was 290lbs- pt sleeping at this time and will take upon waking- plan is for daily weights. They will call cardiology 01/29 with a weight update. Shobha states pt is now on a 1000calorie /day low sodium diet and 6 cup daily fluid restriction. Reports Jayshree does want to lose weight and feel improved. Pt. encouraged to call PCP with any questions or concerns. Agrees to TCM 30 day following. Patient discharged from [facility] Discharge date: 01/26/24 Admitted for: CHF Readmission Risk: n/a Value-Based Contract: ACO Chief Complaint: Dyspnea, weight gain, edema. HPI Narrative The patient is a 43 y/o F w/ PMHx: Morbid obesity, COPD w/ allergic rhinitis, Pulmonary HTN following w/ Dr. 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, HTN, Hypothyroidism, Prader-Leandro syndrome who presents to the [facility] ED on 01/23/24 with history of increased swelling, edema with increasing shortness of breath and occasional dizziness recently started on new diuretic the Friday prior, most recent discharge 01/02/24 of note following evaluation and treatment of NSTEMI in the setting of Acute HFpEF exacerbation and following this noted ED visit 01/08/24 secondary to history of increased weight gain of 20 pounds at that point since her discharge with Lasix transition to twice daily with plan to follow-up with her physician at that time with most recent weights noted 01/08/2024 weight reportedly 273 pound 9.6 ounces--> 01/22/2024 weight 295 pounds 6.711 ounce prompting eventual ED evaluation to be cautious. Patient reports seeing a new tier lift truck operator in [place] the Friday prior who discontinued her Lasix and Bumex with initiation on decreased dose of Lasix 20 mg twice daily with plan at that time [place] tier lift truck operator on 01/23/2024 with similar symptoms to previous presentation with tightness in her chest, worsening edema, orthopnea, weight gain. Workup in the ED included T97.8, heart 67, BP 134/87, respiratory rate 16,97% room air, CBC with WBC 14.1, 112, MCV 101.6, platelet 172 with left shift, BMP with complex at 34, BUN/creatinine 29/0.73 otherwise unremarkable, troponin 10, BNP 38.5, magnesium 2.4, urinalysis not marked appearing, chest x-ray with no acute cardiopulmonary findings, EKG with SR without acute evidence of ischemia. Lasix 40 mg IV x 1 administered. Contact: Contact made with patient: Yes Hi, my name is Bradley Flores RN and I am calling from the [facility] on behalf of your Primary Care Provider, Marilee Thakur MD. I understand you were recently in the hospital, so I am calling to check in with you to ensure you are feeling well now that you are home. May I ask you a few questions related to your hospital stay and well-being? Yes Spoke to: Shobha Dallas , development system efficiency manager Validation: Validated the person spoken to is actively involved in the patient's care. The patient was identified by Name and Date of . Symptoms: Are you feeling about the same, better or worse since leaving the hospital? Better Medications: Do you have any questions about taking your medications, including which medications you should be on, or do you need refills on your medications? No Medication Review: Partial mediation review completed, per patient preference Discussed Torsemide dosing change- 40mg BID with cardiology 01/26 Discharge Instructions: Your Discharge Instructions / After Visit Summary (AVS) are important in guiding you through the recovery process. Do you have any questions related to your discharge instructions? No Home Care: Were you discharged with home care? No Equipment: Do you have all the necessary equipment and supplies needed at your home? Yes The patient verbalizes understanding the use of the equipment and supplies Social: We would like to make sure you have what you need so that your basics needs are met - (more content not included)...[facility]11-20-2024 Note Patient Outreach ([facility]) SIA ABDUL ([id number]) 1980 F Date Time Provider Department 01/28/24 BRADLEY FLORES During your visit today, we recorded the following information about you: Bradley Flores, RODRÍGUEZ 02/20/2024 11:23 AM Addendum Transition Care Management (TCM) Initial Outreach Navigation Team Please assist with scheduling TCM Hospital Discharge Follow up. TCM Eligible until 02/09/24. Please call Shobha Dallas pt 's development system efficiency manager at [phone] to schedule. Thank you HRTIC TCM Home Visit Referral Source of Stratification: [facility] Hospital Admission Status: Discharged Readmission Risk Score: n/a Patient's zip code: [facility] Is zip code within program service area: No Patient meets program referral criteria: No Patient does not qualify for High Risk TCM Home Visit program due to: Readmission Risk Score does not meet criteria Disposition: Patient does not qualify for HRTIC, will provide TCM outreach follow-up for 30-days Patient Source: [id number] (OON) Discharge Outreach Summary: Shobha reports patient is feeling much improved since discharge. Had card. f/u yesterday and Torsemide increased to 40mg BID. Weight yesterday was 290lbs- pt sleeping at this time and will take upon waking- plan is for daily weights. They will call cardiology 01/29 with a weight update. Shobha states pt is now on a 1000calorie /day low sodium diet and 6 cup daily fluid restriction. Reports Jayshree does want to lose weight and feel improved. Pt. encouraged to call PCP with any questions or concerns. Agrees to TCM 30 day following. Patient discharged from [facility] Discharge date: 01/26/24 Admitted for: CHF Readmission Risk: n/a Value-Based Contract: ACO Chief Complaint: Dyspnea, weight gain, edema. HPI Narrative The patient is a 43 y/o F w/ PMHx: Morbid obesity, COPD w/ allergic rhinitis, Pulmonary HTN following w/ Dr. 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, HTN, Hypothyroidism, Prader-Leandro syndrome who presents to the [facility] ED on 01/23/24 with history of increased swelling, edema with increasing shortness of breath and occasional dizziness recently started on new diuretic the Friday prior, most recent discharge 01/02/24 of note following evaluation and treatment of NSTEMI in the setting of Acute HFpEF exacerbation and following this noted ED visit 01/08/24 secondary to history of increased weight gain of 20 pounds at that point since her discharge with Lasix transition to twice daily with plan to follow-up with her physician at that time with most recent weights noted 01/08/2024 weight reportedly 273 pound 9.6 ounces--> 01/22/2024 weight 295 pounds 6.711 ounce prompting eventual ED evaluation to be cautious. Patient reports seeing a new tier lift truck operator in [place] the Friday prior who discontinued her Lasix and Bumex with initiation on decreased dose of Lasix 20 mg twice daily with plan at that time [place] tier lift truck operator on 01/23/2024 with similar symptoms to previous presentation with tightness in her chest, worsening edema, orthopnea, weight gain. Workup in the ED included T97.8, heart 67, BP 134/87, respiratory rate 16,97% room air, CBC with WBC 14.1, 112, MCV 101.6, platelet 172 with left shift, BMP with complex at 34, BUN/creatinine 29/0.73 otherwise unremarkable, troponin 10, BNP 38.5, magnesium 2.4, urinalysis not marked appearing, chest x-ray with no acute cardiopulmonary findings, EKG with SR without acute evidence of ischemia. Lasix 40 mg IV x 1 administered. Contact: Contact made with patient: Yes Hi, my name is Bradley Flores RN and I am calling from the [facility] on behalf of your Primary Care Provider, Marilee Thakur MD. I understand you were recently in the hospital, so I am calling to check in with you to ensure you are feeling well now that you are home. May I ask you a few questions related to your hospital stay and well-being? Yes Spoke to: Shobha Dallas , development system efficiency manager Validation: Validated the person spoken to is actively involved in the patient's care. The patient was identified by Name and Date of . Symptoms: Are you feeling about the same, better or worse since leaving the hospital? Better Medications: Do you have any questions about taking your medications, including which medications you should be on, or do you need refills on your medications? No Medication Review: Partial mediation review completed, per patient preference Discussed Torsemide dosing change- 40mg BID with cardiology 01/26 Discharge Instructions: Your Discharge Instructions / After Visit Summary (AVS) are important in guiding you through the recovery process. Do you have any questions related to your discharge instructions? No Home Care: Were you discharged with home care? No Equipment: Do you have all the necessary equipment and supplies (more content not included)...[facility]11-18-2024 [facility] 01-23-2024 Telephone encounter Note* Telephone Encounter - Mika Kaplan APRN.CNP - 01/23/2024 12:16 PM EST Noted. Will need hospital follow up once discharged. Mika Kaplan APRN.CNP [facility]11-15-2024 Miscellaneous Notes* Telephone Encounter - Mika Kaplan APRN.CNP - 01/23/2024 12:16 PM EST Noted. Will need hospital follow up once discharged. Mika Kaplan APRN.CNP * Telephone Encounter - Candelaria Ball LPN - 01/23/2024 10:31 AM EST Clarence from [facility] calling patient Cariologist took her off the bumex and furosemide and put her on torsemide 20 mg twice daily. Last night her weight was 297.6 pounds. Patient is admitted to [facility] today with CHF. [facility] Telephone encounter Note * Telephone Encounter - Candelaria Ball LPN - 01/23/2024 10:31 AM EST Clarence from [facility] calling patient Cariologist took her off the bumex and furosemide and put her on torsemide 20 mg twice daily. Last night her weight was 297.6 pounds. Patient is admitted to [facility] today with CHF. [facility]11-15-2024 Telephone encounter Note* Telephone Encounter - Mika Kaplan APRN.CNP - 01/23/2024 7:21 AM EST Patient currently admitted to hospital with CHF. Will need orders once discharged. Thank you Mika Kaplan APRN.CNP [facility]11-15-2024 Miscellaneous Notes* Telephone Encounter - Mika Kaplan APRN.CNP - 01/23/2024 7:21 AM EST Patient currently admitted to hospital with CHF. Will need orders once discharged. Thank you Mika Kaplan APRN.CNP * Telephone Encounter - Mika Kaplan APRN.CNP - 01/22/2024 3:14 PM EST Agree with need for PT/OT and agree to follow. Thank you Mika Kaplan APRN.CNP * Telephone Encounter - Kristine Hayes RN - 01/22/2024 2:31 PM EST Clarence Calderon nurse with [facility] calling to see if he can get an order from provider's office for PT/OT for pt. 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 Having trouble getting on and off the bus to go to [place]. Hoping to get PT/OT to evaluate and treat. No need to call Clarence back. If okay, please fax orders to [phone] [facility]. documented in this encounterSum[facility]11-14-2024 NoteHNO ID: [id number] Author: MARTELL GARLAND RN Service: ? Author Type: Registered Nurse Type: Progress Notes Filed: 01/22/2024 16:10 Note Text: Transitional Care Management (TCM) Follow-Up Note PCP Update / Actionable Items Future Appts 02/19 Intm Wstr 03/22/24 Intm Wstr N/A - No specialty updates needed Patient Source: [id number] (OON) Discharge Outreach Summary: Spoke with Shobha/Lead Manufacturing Engineering Tech at [facility], states patient is not feeling that great, up to 297,01/19 Card started on Torsemide, was told to wait until Friday and call back Denies CP,sob, cough ,wheezing, fever/chills, n/v Appetite good eating and hydrating Voiding and bm without difficulty, 01/06/24 Ambulating up ad clemente Fatigue yes Aaron le edema always has been not like it was, 100% better then 2 wks ago Today's weight 269 lbs Denies questions, concerns regarding medications, self care , no issues, stable Patient discharged from [facility] Discharge date: 01/02/24 Admitted for: HF,Dyspnea, orthopnea, weight gain, chest pain, lower swelling Readmission Risk: n/a Value-Based Contract: ACO Contact: Contact made with patient: Yes Spoke to: Caregiver, Shobha Validation: Validated the person spoken to is actively involved in the patient's care. The patient was identified by Name and Date of . I'd like to get an update on how you're doing since our last phone call. Is now a good time to talk? Yes Symptoms: Are you feeling about the same, better or worse since leaving the hospital? Better Weekly Outreach: 2nd Outreach Medications: Do you have any questions about taking your medications, including which medications you should be on, or do you need refills on your medications? No Patient Questions / Concerns: Do you have any questions related to your discharge? No Appointment / TCM Follow-Up: Have you had a follow-up visit with your Primary Care Provider or Specialist since you were discharged? Yes Do you need any assistance with scheduling or changing your follow-up appointments? Patient already has an appointment scheduled SDOH: Has Food and Housing been addressed in Social Determinants in the past 3 months? Yes Education N/A Targets addressed / completed during outreach: Prevent readmission for 30 days Outreach Outcome: Continue TCM Outreach for remainder of 30 days Care Management partners utilized: N/A Martell Garland RN January 22, 2024 4:07 [facility]11-14-2024 History of Present illness Narrative* Martell Garland RN - 01/22/2024 4:00 PM EST Transitional Care Management (TCM) Follow-Up Note PCP Update / Actionable Items Future Appts 02/19 Intm Wstr 03/22/24 Int Wstr N/A - No specialty updates needed Patient Source: [id number] (OON) Discharge Outreach Summary: Spoke with Shobha/Lead Manufacturing Engineering Tech at [facility], states patient is not feeling that great, up to 297,01/19 Card started on Torsemide, was told to wait until Friday and call back Denies CP,sob, cough ,wheezing, fever/chills, n/v Appetite good eating and hydrating Voiding and bm without difficulty, 01/06/24 Ambulating up ad clemente Fatigue yes Aaron le edema always has been not like it was, 100% better then 2 wks ago Today's weight 269 lbs Denies questions, concerns regarding medications, self care , no issues, stable Patient discharged from [facility] Discharge date: 01/02/24 Admitted for: HF,Dyspnea, orthopnea, weight gain, chest pain, lower swelling Readmission Risk: n/a Value-Based Contract: ACO Contact: Contact made with patient: Yes Spoke to: Caregiver, Shobha Validation: Validated the person spoken to is actively involved in the patient's care. The patient was identified by Name and Date of . I'd like to get an update on how you're doing since our last phone call. Is now a good time to talk? Yes Symptoms: Are you feeling about the same, better or worse since leaving the hospital? Better Weekly Outreach: 2nd Outreach Medications: Do you have any questions about taking your medications, including which medications you should be on, or do you need refills on your medications? No Patient Questions / Concerns: Do you have any questions related to your discharge? No Appointment / TCM Follow-Up: Have you had a follow-up visit with your Primary Care Provider or Specialist since you were discharged? Yes Do you need any assistance with scheduling or changing your follow-up appointments? Patient alreadyhas an appointment scheduled SDOH: Has Food and Housing been addressed in Social Determinants in the past 3 months? Yes Education N/A Targets addressed / completed during outreach: Prevent readmission for 30 days Outreach Outcome: Continue TCM Outreach for remainder of 30 days Care Management partners utilized: N/A Martell Garland RN January 22, 2024 4:07 PM documented in this encounterSum[facility]11-14-2024 Telephone encounter Note * Telephone Encounter - Mika Kaplan APRN.MANAGER HOTEL - 01/22/2024 3:14 PM EST Agree with need for PT/OT and agree to follow. Thank you Mika Kaplan APRN.MANAGER HOTEL [facility]11-14-2024 Telephone encounter Note* Telephone Encounter - Kristine Hayes RN - 01/22/2024 2:31 PM EST Clarence Calderon nurse with [facility] calling to see if he can get an order from provider's office for PT/OT for pt. 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 Having trouble getting on and off the bus to go to [place]. Hoping to get PT/OT to evaluate and treat. No need to call Clarence back. If okay, please fax orders to [phone] [facility]. [facility]11-14-2024 NotePatient Outreach ([facility]) SIA ABDUL ([id number]) 1980 F Date Time Provider Department 01/22/24 MARTELL GARLAND AMBTiera During your visit today, we recorded the following information about you: Martell Garland RN 01/22/2024 4:10 PM Signed Transitional Care Management (TCM) Follow-Up Note PCP Update / Actionable Items Future Appts 02/19 Intm Wstr 03/22/24 Intm Wstr N/A - No specialty updates needed Patient Source: Hur-xr-Khllxhj (OON) Discharge Outreach Summary: Spoke with Shobha/Lead Manufacturing Engineering Tech at [facility], states patient is not feeling that great, up to 297,01/19 Card started on Torsemide, was told to wait until Friday and call back Denies CP,sob, cough ,wheezing, fever/chills, n/v Appetite good eating and hydrating Voiding and bm without difficulty, 01/06/24 Ambulating up ad clemente Fatigue yes Aaron le edema always has been not like it was, 100% better then 2 wks ago Today's weight 269 lbs Denies questions, concerns regarding medications, self care , no issues, stable Patient discharged from [facility] Discharge date: 01/02/24 Admitted for: HF,Dyspnea, orthopnea, weight gain, chest pain, lower swelling Readmission Risk: n/a Value-Based Contract: ACO Contact: Contact made with patient: Yes Spoke to: Caregiver, Shobha Validation: Validated the person spoken to is actively involved in the patient's care. The patient was identified by Name and Date of . I'd like to get an update on how you're doing since our last phone call. Is now a good time to talk? Yes Symptoms: Are you feeling about the same, better or worse since leaving the hospital? Better Weekly Outreach: 2nd Outreach Medications: Do you have any questions about taking your medications, including which medications you should be on, or do you need refills on your medications? No Patient Questions / Concerns: Do you have any questions related to your discharge? No Appointment / TCM Follow-Up: Have you had a follow-up visit with your Primary Care Provider or Specialist since you were discharged? Yes Do you need any assistance with scheduling or changing your follow-up appointments? Patient already has an appointment scheduled SDOH: Has Food and Housing been addressed in Social Determinants in the past 3 months? Yes Education N/A Targets addressed / completed during outreach: Prevent readmission for 30 days Outreach Outcome: Continue TCM Outreach for remainder of 30 days Care Management partners utilized: N/A Martell Garland RN January 22, 2024 4:07 PM Allergies As of Date: 01/22/2024 Noted Allergy Reaction BEE STING 02/28/2023 10 - Anaphylaxis DILANTIN (PHENYTOIN SODIUM EXTEND*01/28/2006 Date Reviewed: 01/12/2024 Reviewed by: Aaliyah Gonzalez MA - Fully Assessed Reason for Visit: Transition Of Care [4074] Cmt: TCM [facility] Follow-up Day 20 Prescriptions as of 01/22/2024 - torsemide (DEMADEX) 20 mg tablet Take 1 tablet by mouth two times a day. - bumetanide (BUMEX) 1 mg tablet Take 1 tablet by mouth once daily for 10 days. - furosemide (LASIX) 40 mg tablet Take 1 tablet by mouth two times a day. - carvedilol (COREG) 3.125 mg tablet Take 1 tablet by mouth two times a day. - lisinopril (ZESTRIL) 5 mg tablet Take 1 tablet by mouth [...] COMPRESSION) misc 1 Each once daily. - multivitamin-ferrous fumarate-folic acid (CERTAVITE-ANTIOXIDANT) Take 1 tablet by mouth once daily. - fluticasone (FLONASE) 50 mcg/actuation nasal spray INSTILL 2 SPRAYS IN EACH NOSTRIL DAILY - Fefzz-1-JMU-EPA-Fish Oil 1,000 mg (120 mg-180 mg) cap [...] 4 hours as needed for wheezing/shortness of b (more content not included)...[facility]11-12-2024 Telephone encounter Note* Telephone Encounter - Marilee Thakur MD - 01/20/2024 6:01 PM EST Noted Regards, Marilee Thakur MD [facility]11-12-2024 Miscellaneous Notes* Telephone Encounter - Marilee Thakur MD - 01/20/2024 6:01 PM EST Noted Regards, Marilee Thakur MD * Telephone Encounter - Eulalia Laureano RN - 01/20/2024 12:42 PM EST Shobha returns call and message below reviewed. 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 Bumex and Furosemide were both stopped. Patient was placed on Demadex 20 mg twice daily for now. Shobha reports that per Dr. Goodman, patient is not absorbing the Bumex or furosemide and obesity could be a factor. Eulalia Laureano RN * Telephone Encounter - Pepper Walsh RN - 01/20/2024 8:41 AM EST left for Shobha to call provider's office for message below. Pepper Walsh RN * Telephone Encounter - Marilee Thakur MD - 01/19/2024 5:32 PM EST Stop the lasix And give her 2 mgs of bumex for the next 3 days Regards, Marilee Thakur MD * Telephone Encounter - Lillie Marshall RN - 01/19/2024 8:58 AM EST Shobha from [facility] calls to report that patient has had a 15 pound weight gain since [place]. Patient currently is on Bumex and Lasix. Patient has a little swelling in ankles and wrists. Patient has some swelling in Abdomen. Patient is not complaining of shortness of breath. Please review and advise, Lillie Marshall RN documented in this encounterSumma [facility]11-12-2024 Telephone encounter Note * Telephone Encounter - Eulalia Laureano RN - 01/20/2024 12:42 PM EST Shobha returns call and message below reviewed. 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 Bumex and Furosemide were both stopped. Patient was placed on Demadex 20 mg twice daily for now. Shobha reports that per Dr. Goodman, patient is not absorbing the Bumex or furosemide and obesity could be a factor. Eulalia Laureano RN [facility]11-12-2024 Telephone encounter Note* Telephone Encounter - Pepper Walsh RN - 01/20/2024 8:41 AM EST left for Shobha to call provider's office for message below. Pepper Walsh RN [facility]11-12-2024 History of Present illness Narrative* Isi Goodman MD - 01/20/2024 8:30 AM EST Cardiology New Patient History and Physical Reason for referral: Hx right-sided heart failure HPI: Sia Abdul is a 43 y.o. female who presents today for history of right-sided heart failure. Past medical history of right sided heart failure, Prader-Willi, morbid obesity, hypothyroidism, hypothalamic hypogonadism, lymphedema of the bilateral lower extremities, sleep apnea, mild intermittent asthma, venous insufficiency, and history of DVT. Patient was previously admitted to an outside hospital from December 26 - January 02, 2024 in the setting of 30 pound weight gain and dyspnea. Patient was managed with diuresis with IV furosemide; percaregiver 30 pounds of fluid weight was removed. Echocardiogram reportedly showed LVEF 55%, mildly dilated RV with moderate tricuspid regurgitation, and elevated RVSP of 67 mmHg. BNP on admission waselevated at 1051. EKG showed nonspecific T wave changes. CTA was performed during admission and wasnegative for pulmonary embolism. Patient was referred by her savings teller to establish care with general cardiology. Patient presented to cardiology clinic today with her caregiver on 01/20/2024. Patient's mother joined via telephone. Per caregiver patient has had interval increase in weight and lower extremity swelling, orthopnea since discharge. Current diuretic plan is p.o. furosemide 40 mg twice daily and as needed Bumex. Outside echocardiogram images are not available for my review. Recommended repeat transthoracic echocardiogram to reassess overall cardiac structure and function, degree of tricuspid regurgitation, RVSP. Given history of right sided heart failure likely secondary to obesity hypoventilation syndrome we will transition from p.o. furosemide to p.o. torsemide 20 mg twice daily (better oral bioavailability). We will uptitrate guideline directed medical therapy as tolerated. Past Medical History: She has a past medical history of Adjustment disorder with mixed anxiety and depressed mood (12/14/2019). Surgical History: She has a past surgical history that includes Other surgical history (12/14/2019). Family History: - Reviewed; non-contributory Allergies: Phenytoin Social History: - Non-smoker; no illicit drug use Prior Cardiovascular Testing (personally reviewed): ECG (01/20/2024)- sinus rhythm; non-specific t-wave changes TTE (12/2016) 1. The left ventricular systolic function is normal with a 55-60% estimated ejection fraction. 2. RVSP 35 mmHg Review of Systems: Review of Systems Constitutional: Negative. HENT: Negative. Eyes: Negative. Cardiovascular: Positive for dyspnea on exertion and leg swelling. Negative for chest pain, near-syncope, orthopnea, palpitations, paroxysmal nocturnal dyspnea and syncope. Respiratory: Positive for shortness of breath. Endocrine: Negative. Hematologic/Lymphatic: Negative. Skin: Negative. Musculoskeletal: Negative. Gastrointestinal: Negative. Genitourinary: Negative. Neurological: Negative. Psychiatric/Behavioral: Negative. Allergic/Immunologic: Negative. Objective Outpatient Medications: Current Outpatient Medications: acetaminophen (Tylenol) 500 mg tablet, Take 2 tablets (1,000 mg) by mouth every 8 hours if needed.,Disp: , Rfl: albuterol 90 mcg/actuation inhaler, Inhale 2 puffs every 4 hours if needed., Disp: , Rfl: ammonium lactate (Amlactin) 12 % cream, APPLY TOPICALLY TO AFFECTED AREA(S) ON LEGS AT BEDTIME, Disp: , Rfl: aspirin 81 mg EC tablet, Take 1 tablet (81 mg) by mouth once daily., Disp: , Rfl: bumetanide (Bumex) 1 mg tablet, Take 1 tablet (1 mg) by mouth once daily., Disp: , Rfl: calcium carbonate-vitamin D3 500 mg-5 mcg (200 unit) tablet, Take 1 tablet by mouth 2 times daily (morning and late afternoon)., Disp: , Rfl: carvedilol (Coreg) 3.125 mg tablet, Take 1 tablet (3.125 mg) by mouth twice a day., Disp: , Rfl: Certavite-Antioxidant 18-400 mg-mcg tablet, Take 1 tablet by mouth once daily., Disp: , Rfl: clotrimazole (Lotrimin) 1 % cream, APPLY TOPICALLY TO AFFECTED AREA(S) ON BILATERAL GROIN TWICE DAILY, Disp: , Rfl: desogestreL-ethinyl estradioL (Apri) 0.15-0.03 mg tablet, Take by mouth., Disp: , Rfl: DOCOSAHEXAENOIC ACID ORAL, Take 1,000 mg by mouth once daily., Disp: , Rfl: Dulera 100-5 mcg/actuation inhaler, INHALE 2 PUFFS BY MOUTH TWICE DAILY ( INSTRUCTED), Disp: , Rfl: EPINEPHrine 0.3 mg/0.3 mL injection syringe, INJECT 1 PEN INTO LATERAL THIGH DIRECTED FOR ALLERGIC REACTIONS TO BEE/WASP STINGS MAY REPEAT IN 5-15 MINUTES IF SYMPTOMS PERSIST * *STAFF REORDER, 4 DAYS IN ADVANCE*, Disp: , Rfl: ergocalciferol (Vitamin D-2) 1.25 MG (68152 UT) capsule, Take by mouth., Disp: , Rfl: fish oil concentrate (Gurdon-3) 120-180 mg capsule, Take 1 capsule (1 g) by mouth once daily., Disp:, Rfl: fluticasone (Flonase) 50 mcg/actuation nasal spray, Administer 2 sprays into each nostril once daily., Disp: , Rfl: furosemide (Lasix) 40 mg tablet, Take 1 tablet (40 mg) by mouth twice a day., Disp: , Rfl: levothyroxine (Synthroid, Levoxyl) 100 mcg tablet, take one tablet by mouth daily one hour before breakfast, Disp: , Rfl: lisinopril 5 mg tablet, Take 1 tablet (5 mg) by mouth once daily., Disp: , Rfl: naproxen (Naprosyn) 500 mg tablet, TAKE ONE TABLET BY MOUTH TWICE DAILY NEEDED FOR PAIN/INFLAMMATION OF KNEE *TAKE WITH FOOD* *STAFF REORDER, 4 DAYS IN ADVANCE*, Disp: , Rfl: nystatin (Mycostatin) 100,000 unit/gram powder, APPLY TOPICALLY TWICE DAILY TO AFFECTED AREA(S) ON ABDOMINAL FOLDS, Disp: , Rfl: ondansetron ODT (Zofran-ODT) 4 mg disintegrating tablet, dissolve 1 tablet ON TONGUE every 8 hours if needed for nausea OR vomiting, Disp: , Rfl: potassium chloride CR 20 mEq ER tablet, Take 1 tablet (20 mEq) by mouth once daily., Disp: , Rfl: Symbicort 160-4.5 mcg/actuation inhaler, Inhale 2 puffs 2 times a day., Disp: , Rfl: Last Recorded Vitals BP 109/74 (BP Location: Left arm, Patient Position: Sitting) Pulse 74 Wt 133 kg (294 lb) [id number]% BMI 65.21 kg/m Physical Exam: Physical Exam Constitutional: General: She is not in acute distress. Appearance: She is obese. HENT: Head: Normocephalic. Mouth/Throat: Mouth: Mucous membranes are moist. Eyes: Extraocular Movements: Extraocular movements intact. Conjunctiva/sclera: Conjunctivae normal. Neck: Vascular: JVD present. No carotid bruit. Cardiovascular: Rate and Rhythm: Normal rate and regular rhythm. Pulses: Normal pulses. Heart sounds: No murmur heard. Comments: Bilateral LE lymphedema noted Pulmonary: Effort: Pulmonary effort is normal. No respiratory distress. Breath sounds: Normal breath sounds. Abdominal: General: Bowel sounds are normal. There is no distension. Palpations: Abdomen is soft. Musculoskeletal: General: No swelling. Right lower le+ Edema present. Left lower le+ Edema present. Skin: General: Skin is warm and dry. Neurological: Mental Status: She is alert. Mental status is at baseline. Cranial Nerves: No cranial nerve deficit. Motor: No weakness. Psychiatric: Mood and Affect: Mood normal. Behavior: Behavior normal. Lab Review: Lab Results Component Value Date GLUCOSE 89 04/17/2020 CALCIUM 8.9 04/17/2020 NA 137 04/17/2020 K 4.0 04/17/2020 CO2 28 04/17/2020 CL 102 04/17/2020 BUN 13 04/17/2020 CREATININE 0.67 04/17/2020 Lab Results Component Value Date CHOL 146 04/17/2020 Lab Results Component Value Date HDL 67.8 04/17/2020 No results found for: LDLCALC Lab Results Component Value Date TRIG 69 04/17/2020 Lab Results Component Value Date TSH 3.57 04/17/2020 Assessment: 43 y.o. female who presents today for history of right-sided heart failure. Past medical history ofright sided heart failure, Prader-Willi, morbid obesity, hypothyroidism, hypothalamic hypogonadism,lymphedema of the bilateral lower extremities, sleep apnea, mild intermittent asthma, venous insufficiency, and history of DVT. Patient presented to cardiology clinic today with her caregiver on 01/20/2024. Per caregiver patient has had interval increase in weight and lower extremity swelling, orthopnea since discharge. Current diuretic plan is p.o. furosemide 40 mg twice daily and as needed Bumex. Outside echocardiogram images are not available for my review. Recommended repeat transthoracic echocardiogram to reassess overall cardiac structure and function, degree of tricuspid regurgitation, RVSP. Given history of right sided heart failure likely secondary to obesity hypoventilation syndrome we will transition from p.o. furosemide to p.o. torsemide 20 mg twice daily (better oral bioavailability). We will uptitrate guideline directed medical therapy as tolerated. Overall Plan: 1. Acute on chronic right-sided heart failure - Likely secondary to obesity hypoventilation syndrome in setting of Prader-Willi - Treat underlying exacerbating factors - Switch from p.o. furosemide to p.o. torsemide 20 mg twice daily given better oral bioavailabilityand uptitrate as tolerated - Check CMP and BNP - Encourage low-sodium diet less than 2 g daily and avoidance of excessive fluid intake (less than 2 L daily) - Check complete transthoracic echocardiogram 2. RV dysfunction - Likely secondary to obesity hypoventilation syndrome - Management as above 3. Prader-Willi syndrome - Follow-up as per genetics clinic 4. Morbid obesity (BMI 65) - Discussed need for significant weight loss - Dietary lifestyle modifications 5. 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 History of lymphedema - Continue lymphedema pumps 8. Discussed that if patient had unexplained weight gain greater than 3 pounds in 48-hour period tocontact our cardiology office for additional instructions/diuretic management Disposition: Return to cardiology clinic after above testing Isi Goodman MD [facility] Work Phone: [phone]) 980-963711-12-2024 Instructions* Patient Instructions* Isi Goodman MD - 01/20/2024 8:30 AM EST We are stopping furosemide (lasix) and bumex; we are starting torsemide 20 mg twice a day (8 AM / 2PM). To further evaluate your shortness of breath and leg swelling we will check the heart with a heart ultrasound / echocardiogram. Thank you for your visit today. Please contact our office (via [employer] or phone) with any additional questions. [facility] [place] RODRÍGUEZ Sun/Clinic Nurse for: Dr. Maxine Nicolas [address], [address] [place] [address] Press Option 5 then Option 3 to speak with the Clinic Nurse (Corinne) To Reach: Billing Questions - [phone] Scheduling / Rescheduling - Option 1 Refills / Medication Requests - Option 3 General Office / [place] - Option 4 Results - Option 6 Medical Records - Option 7 Repeat Options - Option 9 documented in this encounterBl[facility] Work Phone: [phone] Telephone encounter Note* Telephone Encounter - Marilee Thakur MD - 01/19/2024 5:32 PM EST Stop the lasix And give her 2 mgs of bumex for the next 3 days Regards, Marilee Thakur MD [facility]11-11-2024 Telephone encounter Note* Telephone Encounter - Lillie Marshall RN - 01/19/2024 8:58 AM EST Shobha from [facility] calls to report that patient has had a 15 pound weight gain since Friday. Patient currently is on Bumex and Lasix. Patient has a little swelling in ankles and wrists. Patient has some swelling in Abdomen. Patient is not complaining of shortness of breath. Please review and advise, Lillie Marshall RN [facility]11-06-2024 Telephone encounter Note* Telephone Encounter - Mima Parson LPN - 01/14/2024 2:19 PM EST Shobha from [facility] notified Rx has been sent in & to start medication today. Shobha will check with pharm & get med from them. Mima Parson LPN [facility]11-06-2024 Miscellaneous Notes* Telephone Encounter - Mima Parson LPN - 01/14/2024 2:19 PM EST Shobha from [facility] notified Rx has been sent in & to start medication today. Shobha will check with pharm & get med from them. Mima Parson LPN * Telephone Encounter - Mika Kaplan APRN.MANAGER HOTEL - 01/14/2024 1:34 PM EST Order sent. Please verify they are starting this today as she continues to have weight gain. Thank you Mika Kaplan APRN.OBED * Telephone Encounter - Mima Parson LPN - 01/14/2024 11:59 AM EST Shobha calling [facility] asking if Bumex can be sent in today as they want to start pt on it today? Order pending review. Mima Parson LPN * Telephone Encounter - Pamela Singh LPN - 01/14/2024 8:11 AM EST Spoke with Clarence and message below given. Clarence wanted to update you with progress on pt. She has gained another 6 pounds since yesterday pt is now 284 #. [facility]. They will be starting medication tomorrow 01-15-24 and will come in on Friday01/19/24 to get lab work done. If anything else is needed please call Clarence. Clarence will be keeping you updated on pt's weight and symptoms. Pamela Singh LPN * Telephone Encounter - Marilee Thakur MD - 01/13/2024 5:38 PM EST I want to give her bumex 1 mgs daily for 5 days and recheck her labs after that. Please let me know which pharmacy to call the medications into Marilee Lassiter MD * Telephone Encounter - Candelaria Ball LPN - 01/13/2024 8:08 AM EST Clarence from [facility] calling patient weight Friday am was 274 pounds. Patient weight this morning at 745 am is 278 pounds. Patient uses [facility] for the [facility]. Please notify Clarence with any changes and [facility] [phone]. Please advise documented in this encounterSum[facility]11-[facility]24 Telephone encounter Note * Telephone Encounter - Mika Kaplan APRN.CNP - 01/14/2024 1:34 PM EST Order sent. Please verify they are starting this today as she continues to have weight gain. Thank you Mika Kaplan APRN.MANAGER HOTEL [facility]11-06-2024 Telephone encounter Note* Telephone Encounter - Mima Parson LPN - 01/14/2024 11:59 AM EST Shobha calling [facility] asking if Bumex can be sent in today as they want to start pt on it today? Order pending review. Mima Parson LPN [facility]11-06-2024 Telephone encounter Note* Telephone Encounter - Pamela Singh LPN - 01/14/2024 8:11 AM EST Spoke with Clarence and message below given. Clarence wanted to update you with progress on pt. She has gained another 6 pounds since yesterday pt is now 284 #. [facility]. They will be starting medication tomorrow 01-15-24 and will come in on Friday01/19/24 to get lab work done. If anything else is needed please call Clarence. Clarence will be keeping you updated on pt's weight and symptoms. Pamela Singh LPN [facility]11-05-2024 Telephone encounter Note* Telephone Encounter - Marilee Thakur MD - 01/13/2024 5:38 PM EST I want to give her bumex 1 mgs daily for 5 days and recheck her labs after that. Please let me know which pharmacy to call the medications into RegardsMarilee MD [facility]11-05-2024 Telephone encounter Note* Telephone Encounter - Candelaria Ball LPN - 01/13/2024 8:08 AM EST Clarence from [facility] calling patient weight Friday am was 274 pounds. Patient weight this morning at 745 am is 278 pounds. Patient uses [facility] the [facility]. Please notify Clarence with any changes and also [facility] [phone]. Please advise [facility]11-04-2024 Note* Addendum Note - Marilee Thakur MD - 01/12/2024 2:29 PM ESTAddended by: MARILEE THAKUR on: 01/12/2024 02:29 PM Modules accepted: Level of Service [facility]11-04-2024 Miscellaneous Notes* Addendum Note - Marilee Thakur MD - 01/12/2024 2:29 PM ESTAddended by: MARILEE THAKUR on: 01/12/2024 02:29 PM Modules accepted: Level of Service documented in this encounterSumma Health [facility]11-04-2024 Telephone encounter Note * Telephone Encounter - Aaliyah Gonzalez MA - 01/12/2024 12:48 PM EST Faxed as requested. Aaliyah Gonzalez MA [facility]11-04-2024 Miscellaneous Notes* Telephone Encounter - Aaliyah Gonzalez MA - 01/12/2024 12:48 PM EST Faxed as requested. Aaliyah Gonzalez MA * Telephone Encounter - Mika Kaplan APRN.CNP - 01/12/2024 12:10 PM EST Orders placed. Please fax as requested Thank you Mika Kaplan APRN.OBED * Telephone Encounter - Aaliyah Gonzalez MA - 01/12/2024 10:16 AM EST Patient needs orders for Pneumatic compression, stockings, and wraps. Orders pended. Please file if agreeable. Once ordered, will need to fax orders to [facility] at [phone], ATTN Shobha/Rafia Gonzalez MA documented in this encounterSumma [facility]11-04-2024 Telephone encounter Note * Telephone Encounter - Mika Kaplan APRN.CNP - 01/12/2024 12:10 PM EST Orders placed. Please fax as requested Thank you Mika Kaplan APRN.MANAGER HOTEL [facility]11-04-2024 Telephone encounter Note* Telephone Encounter - Aaliyah Gonzalez MA - 01/12/2024 10:16 AM EST Patient needs orders for Pneumatic compression, stockings, and wraps. Orders pended. Please file if agreeable. Once ordered, will need to fax orders to [facility] at [phone], ATTN Shobha/Rafia Gonzalez MA [facility]11-04-2024 NoteHNO ID: [id number] Author: MARILEE THAKUR MD Service: ? Author Type: Physician Type: Progress Notes Filed: 01/12/2024 14:29 Note Text: Reason for Visit Patient presents with: Hospital F/U: And ER visit on 01/08/24 Sia Abdul is a 42 year old female [...] massagers and she is on the lasix. 01/12/2024: The patient was admitted from December 26 to January 01 for 30 pound weight gain which is thought to be from water weight gain. She was in the ICU and was diuresed her left ventricular ejection fraction was found to be 55%. The right ventricle was mildly dilated with mild global right ventricular systolic dysfunction she also had moderate tricuspid valve insufficiency which is 2+ and her pulmonary artery systolic pressure is 67 which is elevated. On review of her discharge reported says she has acute respiratory failure with hypoxia and hypercapnia. 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 CTA was done to rule out pulmonary embolism and it showed no coronary artery calcifications. No problem-specific Assessment AND Plan notes found [...] discussed today Current Outpatient Medications: potassium chloride 20 mEq TbER ammonium lactate (LAC-HYDRIN) 12 % cream nystatin (NYAMYC) powder furosemide (LASIX) 40 mg tablet carvedilol (COREG) 3.125 mg tablet lisinopril (ZESTRIL) 5 mg tablet furosemide (LASIX) 40 mg tablet Leg Brace (TRUE CMFT KNEE COMPRESSION) misc multivitamin-ferrous fumarate-folic acid (CERTAVITE-ANTIOXIDANT) fluticasone (FLONASE) 50 mcg/actuation nasal spray Asigj-8-XDY-EPA-Fish Oil 1,000 mg (120 mg-180 mg) cap EPINEPHrine (EPIPEN) 0.3 mg/0.3 mL auto-injector levothyroxine (SYNTHROID) 100 mcg tablet DULERA 100-5 mcg/actuation inhaler OYSTER SHELL CALCIUM-VITAMIN D 500 mg-5 mcg (200 unit) per tablet clotrimazole (LOTRIMIN) 1 % cream albuterol HFA (VENTOLIN HFA) 90 mcg/actuation inhaler naproxen (NAPROSYN) 500 mg tablet acetaminophen (TYLENOL [...] No dyspnea, unexplained cough. GI: No dysphagia/odynophagia, prob (more content not included)...[facility]11-04-2024 History of Present illness Narrative* Marilee Thakur MD - 01/12/2024 9:46 AM EST Reason for Visit Patient presents with: Hospital F/U: And ER visit on 01/08/24 Sia Abdul is a 42 year old female who presents here today for Above Complaints.. Health Maintenance HEPATITIS B(1 of 3 - 3-dose series) SPIROMETRY PNEUMOCOCCAL(2 - PCV) DEPRESSION ASSESSMENT MAMMOGRAM KALPESH Martell is a very pleasant 41-year-old woman with past medical history of Prader- Willi hypothyroidism, hypothalamic hypogonadism syndrome, lymphedema of the extremities, sleep apnea, mild intermittent asthma, venous insufficiency, obstructive sleep apnea and history of DVT, morbid obesity, who is here for an annual physical. Lymphedema: she has remained around 10 pounds heavier than before in the past year. There is accumulation of more fluid in the lower extremities. Her current compression wraps are not working and thecompression stockings are rolling a down easy and she needs longer and newer ones. Compression therapy machine is not working well for her. Hypothyroidism. She is doing well on her current dose of Synthroid. Denies fatigue, cold intolerance and swelling in feet. TSH recently checked and normal. Patient does the lymphedema massagers and she is on the lasix. 01/12/2024: The patient was admitted from December 26 to January 01 for 30 pound weight gain which isthought to be from water weight gain. She was in the ICU and was diuresed her left ventricular ejection fraction was found to be 55%. The right ventricle was mildly dilated with mild global right ventricular systolic dysfunction she also had moderate tricuspid valve insufficiency which is 2+ and her pulmonary artery systolic pressure is 67 which is elevated. On review of her discharge reported says she has acute respiratory failure with hypoxia and hypercapnia. 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 CTA was done torule out pulmonary embolism and it showed no coronary artery calcifications. No problem-specific Assessment & Plan notes found [...] discussed today Current Outpatient Medications: potassium chloride 20 mEq TbER ammonium lactate (LAC-HYDRIN) 12 % cream nystatin (NYAMYC) powder furosemide (LASIX) 40 mg tablet carvedilol (COREG) 3.125 mg tablet lisinopril (ZESTRIL) 5 mg tablet furosemide (LASIX) 40 mg tablet Leg Brace (TRUE CMFT KNEE COMPRESSION) misc multivitamin-ferrous fumarate-folic acid (CERTAVITE-ANTIOXIDANT) fluticasone (FLONASE) 50 mcg/actuation nasal spray Vkagr-3-FSE-EPA-Fish Oil 1,000 mg (120 mg-180 mg) cap EPINEPHrine (EPIPEN) 0.3 mg/0.3 mL auto-injector levothyroxine (SYNTHROID) 100 mcg tablet DULERA 100-5 mcg/actuation inhaler OYSTER SHELL CALCIUM-VITAMIN D 500 mg-5 mcg (200 unit) per tablet clotrimazole (LOTRIMIN) 1 % cream albuterol HFA (VENTOLIN HFA) 90 mcg/actuation inhaler naproxen (NAPROSYN) 500 mg tablet acetaminophen (TYLENOL [...] or numbness of concern. Physical Exam BP 134/70 Pulse 77 Resp 16 Wt 124.8 kg (275 lb 1.9 oz) LMP 05/13/2007 SpO2 99% BMI 60.59 kg/m General appearance: Well appearing, alert, in [...] significant in the lower extremities. ASSESSMENT/PLAN: 1. Hospital discharge follow-up - ICD9: V67.59, ICD10: Z09 (primary diagnosis) Patient was started on lisinopril at 5 mg, Lasix 40 mg 2 times a day, Coreg 3.125 twice a day She was asked to keep a tight watch of her weight. And report to me with an increase in weight. 2. Encounter for immunization - ICD9: V03.89, ICD10: Z23 - INFLUENZA VACCINE, AGE 6MO-64YR, TRIVALENT (AFLURIA, FLULAVAL, FLUVIRIN, FLUZONE) 3. Acute congestive heart failure, unspecified heart failure type (HCC) - ICD9: 428.0, ICD10: I50.9 - HFpEF 50+ - Continue current medications - COMPLETE BLOOD COUNT AND DIFFERENTIAL - COMPREHENSIVE METABOLIC PANEL 4. Pulmonary hypertension (HCC) - ICD9: 416.8, ICD10: I27.20 She is going to see the tier lift truck operator 5. Right ventricular dysfunction - ICD9: 429.9, ICD10: I51.9 Marilee Thakur MD documented in this encounterSum[facility]10-31-2024 Telephone encounter Note * Telephone Encounter - Rah Turner RN - 01/08/2024 9:22 AM EDT Blanca ORTEGA returned call and given verbal written by provider below. Blanca verbalized understanding. Still need Rx's sent to [facility]. [facility]10-31-2024 Miscellaneous Notes* Telephone Encounter - Rah Turner RN - 01/08/2024 9:22 AM EDT Blanca ORTEGA returned call and given verbal written by provider below. Blanca verbalized understanding. Still need Rx's sent to [facility]. * Telephone Encounter - Rah Turner RN - 01/08/2024 9:13 AM EDT Phoned Shobha and given provider's message below. Shobha agreeable. Shobha will have UNDERWRITING TECHNICIAN call in for verbal.Will leave encounter open until UNDERWRITING TECHNICIAN calls back. Reports the Rx's need to be sent to [facility]. Pended for [facility]. Patient has appt with tier lift truck operator- Dr. Goodman at [facility] on 01-20-24 @ 8:30 am, and with pcp on 01-12-24 @ 9 am. * Telephone Encounter - Mika Kpalan APRN.CNP - 01/08/2024 8:56 AM EDT Lets just increase the lasix to 40mg and 20 meq of KCL continuously as she has continued to need this dose. Must keep upcoming appointment with PCP. For any increase in shortness of breath or urgent concern she needs to go to ER. Who is she seeing for cardiology? When is her next appointment? Thank you Mika Kaplan APRN.MANAGER HOTEL * Telephone Encounter - Rah Turner RN - 01/08/2024 8:22 AM EDT Shobha- [place]- phoned stating she needs a reply today, hopefully within the hour, b/c she has an LPNthere who can take a verbal. # [phone]. She needs a verbal to continue lasix 40 mg for 3 more days. States patient will be in crisis if they do not get this order. More information in below messages. * Telephone Encounter - Rah Turner RN - 01/07/2024 1:08 PM EDT Shobha returned call. Shobha had called today at 10:29 am, and that message copied and pasted below, and the other encounter closed: Note [facility] patient weight today at 850 am was 276 pounds. She is on verystrict diet and liquid amount that she can drink daily. Patient is currently taking Lasix 40 mg daily. Please advise During this call, Shobha reports, weight loss since discharge from hospital = none. Reports during hospital stay pt gained 30 lbs. Pt has been home since Friday. Instructions from hospital were to weighpt daily, and call pcp with weight gain > 3 lbs in 24 hours. Reports pt had weight gain of 3 lbsyesterday, and 7 lbs the day before. Total in 2 days = 10 lb weight gain. Please advise and phone Shobha with reply: [phone]. Shobha will still need order faxed to [phone] since she cannot take verbal. * Telephone Encounter - Teresa Ferrera RN - 01/07/2024 11:16 AM EDT Called and left a voicemail for Shob[facility], caregiver to call back and ask for a nurse to receive the providers message. Teresa Ferrera RN * Telephone Encounter - Marilee Thakur MD - 01/07/2024 10:43 AM EDT Can you update me how much lasix she lost with the lasix, since discharge? Regards, Marilee Thakur MD * Telephone Encounter - María Avila MA - 01/07/2024 8:18 AM EDT Spoke with Shobha, when patient was discharged from hospital, she was instructed to take 40 mg lasix for 5 days. Today is day #5. Do you want patient to take additional 3 days? Shobha is needing written directions faxed to [phone] as Shobha is not licensed and can not take verbal order. * Telephone Encounter - Marilee Thakur MD - 01/06/2024 5:02 PM EDT Would ask her to take daily lasix for 3 days She should have as a reserve. RegardsMarilee MD * Telephone Encounter - Candelaria Ball LPN - 01/06/2024 10:55 AM EDT [facility] calling with patient weight was told if went up 3 pounds to report toPCP. Patient weight today at 745 am was 269 pounds and yesterday weight was 266 pounds. Patient hashospital follow up scheduled for 01/12/2024 with PCP. documented in this encounterSum[facility]10-[facility] Telephone encounter Note * Telephone Encounter - Rah Turner, RODRÍGUEZ - 01/08/2024 9:13 AM EDT Phoned Shobha and given provider's message below. Shobha agreeable. Shobha will have UNDERWRITING TECHNICIAN call in for verbal.Will leave encounter open until UNDERWRITING TECHNICIAN calls back. Reports the Rx's need to be sent to [facility]. Pended for [facility]. Patient has appt with tier lift truck operator- Dr. Goodman at [facility] on 01-20-24 @ 8:30 am, and with pcp on 01-12-24 @ 9 am. [facility]10-31-2024 Telephone encounter Note* Telephone Encounter - Mika Kaplan APRN.CNP - 01/08/2024 8:56 AM EDT Lets just increase the lasix to 40mg and 20 meq of KCL continuously as she has continued to need this dose. Must keep upcoming appointment with PCP. For any increase in shortness of breath or urgent concern she needs to go to ER. Who is she seeing for cardiology? When is her next appointment? Thank you Mika Kaplan APRN.OBED [facility]10-31-2024 Telephone encounter Note* Telephone Encounter - Rah Turner RN - 01/08/2024 8:22 AM EDT Shobha- [place]- phoned stating she needs a reply today, hopefully within the hour, b/c she has an LPNthere who can take a verbal. # [phone]. She needs a verbal to continue lasix 40 mg for 3 more days. States patient will be in crisis if they do not get this order. More information in below messages. [facility]10-30-2024 Telephone encounter Note* Telephone Encounter - Rah Turner RN - 01/07/2024 1:19 PM EDT See duplicate encounter. [facility]10-30-2024 Miscellaneous Notes* Telephone Encounter - Rah Turner RN - 01/07/2024 1:19 PM EDT See duplicate encounter. * Telephone Encounter - Candelaria Ball LPN - 01/07/2024 10:26 AM EDT [facility] calling patient weight today at 850 am was 276 pounds. She is on verystrict diet and liquid amount that she can drink daily. Patient is currently taking Lasix 40 mg daily. Please advise documented in [facility] Telephone encounter Note * Telephone Encounter - Rah Turner RN - 01/07/2024 1:08 PM EDT Shobha returned call. Shobha had called today at 10:29 am, and that message copied and pasted below, and the other encounter closed: Note [facility]ha caregiver [facility] calling patient weight today at 850 am was 276 pounds. She is on verystrict diet and liquid amount that she can drink daily. Patient is currently taking Lasix 40 mg daily. Please advise During this call, Shobha reports, weight loss since discharge from hospital = none. Reports during hospital stay pt gained 30 lbs. Pt has been home since Friday. Instructions from hospital were to weighpt daily, and call pcp with weight gain > 3 lbs in 24 hours. Reports pt had weight gain of 3 lbsyesterday, and 7 lbs the day before. Total in 2 days = 10 lb weight gain. Please advise and phone Shobha with reply: [phone]. Shobha will still need order faxed to [phone] since she cannot take verbal. [facility]10-30-2024 Telephone encounter Note* Telephone Encounter - Teresa Ferrera RN - 01/07/2024 11:16 AM EDT Called and left a voicemail for Shobha -[facility] living, caregiver to call back and ask for a nurse to receive the providers message. Teresa Ferrera RN T [facility]10-30-2024 Telephone encounter Note* Telephone Encounter - Marilee Thakur MD - 01/07/2024 10:43 AM EDT Can you update me how much lasix she lost with the lasix, since discharge? Regards, Marilee Thakur MD [facility]10-30-2024 Telephone encounter Note* Telephone Encounter - Candelaria Ball LPN - 01/07/2024 10:26 AM EDT [facility] calling patient weight today at 850 am was 276 pounds. She is on verystrict diet and liquid amount that she can drink daily. Patient is currently taking Lasix 40 mg daily. Please advise [facility]10-30-2024 Telephone encounter Note* Telephone Encounter - María Avila MA - 01/07/2024 8:18 AM EDT Spoke with Shobha, when patient was discharged from hospital, she was instructed to take 40 mg lasix for 5 days. Today is day #5. Do you want patient to take additional 3 days? Shobha is needing written directions faxed to [phone] as Shobha is not licensed and can not take verbal order. [facility]10-29-2024 Telephone encounter Note* Telephone Encounter - Marilee Thakur MD - 01/06/2024 5:02 PM EDT Would ask her to take daily lasix for 3 days She should have as a reserve. Regards, Marilee Thakur MD [facility]10-29-2024 Telephone encounter Note* Telephone Encounter - Candelaria Ball LPN - 01/06/2024 10:55 AM EDT [facility]ha from [facility] Caregiver calling with patient weight was told if went up 3 pounds to report toPCP. Patient weight today at 745 am was 269 pounds and yesterday weight was 266 pounds. [facility] up scheduled for 01/12/2024 with PCP. T [facility]10-29-2024 NoteHNO ID: [id number] Author: MARTELL GARLAND RN Service: ? Author Type: Registered Nurse Type: Progress Notes Filed: 01/06/2024 10:00 Note Text: Transition Care Management (TCM) Initial Outreach PCP Update / Actionable Items Eligible for tcm through 01/16/24 Future Appts 02/19 Intm Wstr 03/22/24 Int Wstr HRTIC TCM Home Visit Referral Source of Stratification: TCM [facility] Hospital Admission Status: Discharged Readmission Risk Score: n/a Patient's zip code: [address] Is zip code within program service area: No Patient meets program referral criteria: No Patient does not qualify for High Risk TCM Home Visit program due to: Patient's zip code is not located within program service area Disposition: Patient does not qualify for HRTIC, will provide TCM outreach follow-up for 30-days Patient Source: Oeo-eq-Gxhvuvm (OON) Discharge Outreach Summary: Spoke with Shobha/[employer] Manufacturing Engineering Tech [facility], states is feeling way better, looks 1000 x better Denies CP,sob, cough ,wheezing, fever/chills, n/v Appetite good eating and hydrating Voiding and bm without difficulty, 01/06/24 Ambulating up ad clemente Fatigue nothing concerns Aaron le edema always has been not like it was, 100% better then 2 wks ago Today's weight 269 lbs problem with house mate trying to avoid ruff situation working on it, will take some time, has been going for a long time, going back to day rehab next week Denies questions, concerns regarding medications, self care , no issues, stable Patient discharged from [facility] Discharge date: 01/02/24 Admitted for: HF,Dyspnea, orthopnea, weight gain, chest pain, lower swelling Readmission Risk: n/a Value-Based Contract: ACO Contact: Contact made with patient: Yes Hi, my name is Martell Garland RN and I am calling from the [facility] on behalf of your Primary Care Provider, Marilee Thakur MD. I understand you were recently in the hospital, so I am calling to check in with you to ensure you are feeling well now that you are home. May I ask you a few questions related to your hospital stay and well-being? Yes Spoke to: Caregiver, Shobha Validation: Validated the person spoken to is actively involved in the patient's care. The patient was identified by Name and Date of . Symptoms: Are you feeling about the same, better or worse since leaving the hospital? Better Medications: Do you have any questions about taking your medications, including which medications you should be on, or do you need refills on your medications? No Medication Review: Declined at this time per patient preference Discharge Instructions: Your Discharge Instructions / After Visit Summary (AVS) are important in guiding you through the recovery process. Do you have any questions related to your discharge instructions? No Home Care: Were you discharged with home care? No Equipment: Do you have all the necessary equipment and supplies needed at your home? Yes The patient verbalizes understanding the use of the equipment and supplies Social: We would like to make sure you have what you need so that your basics needs are met - including your personal safety, food, housing and medications. Would you like to speak with a social work sports team manager to help give you support for any of these needs? No It can be normal to feel anxious or down during a time like this. Would you like to talk to a mental health professional about how you have been feeling? No Action Taken: No needs verbalized. No action required. Follow-Up Appointment: [Appointment / TCM Follow-up within 14 days] I would like to help you schedule a hospital follow-up virtual or telephone visit with your PCP. This is a great way for you to connect with your provider to ensure you have safely transitioned home. If you are agreeable, I will send your request to a lip of shank cutter who will contact and assist you with that appointment. This will give you an opportunity to ask any questions or address any concerns you may have with your PCP. Inform the patient that if they have any questions or concerns prior to that appointment, to call their PCP's office right away. Appointment Action: No action required, patient declines appointment. Education N/A Targets addressed / completed during outreach: Contact patient within two (2) business days Outreach Outcome: Enrolled in TCM Care Management partners utilized: N/A Martell Garland RN January 06, 2024 9:54 [facility]10-29-2024 History of Present illness Narrative* Martell Garland RN - 01/06/2024 9:43 AM EDT Transition Care Management (TCM) Initial Outreach PCP Update / Actionable Items Eligible for tcm through 01/16/24 Future Appts 02/19 Intm Wstr 03/22/24 [facility] HRTIC TCM Home Visit Referral Source of Stratification: [facility] Hospital Admission Status: Discharged Readmission Risk Score: n/a Patient's zip code: [address] Is zip code within program service area: No Patient meets program referral criteria: No Patient does not qualify for High Risk TCM Home Visit program due to: Patient's zip code is not located within program service area Disposition: Patient does not qualify for HRTIC, will provide TCM outreach follow-up for 30-days Patient Source: Eyw-wz-Rcggjmr (OON) Discharge Outreach Summary: Spoke with Shobha/[employer] Manufacturing Engineering Tech [facility], statesis feeling way better, looks 1000 x better Denies CP,sob, cough ,wheezing, fever/chills, n/v Appetite good eating and hydrating Voiding and bm without difficulty, 01/06/24 Ambulating up ad clemente Fatigue nothing concerns Aaron le edema always has been not like it was, 100% better then 2 wks ago Today's weight 269 lbs problem with house mate trying to avoid ruff situation working on it, will take some time, has beengoing for a long time, going back to day rehab next week Denies questions, concerns regarding medications, self care , no issues, stable Patient discharged from [facility] Discharge date: 01/02/24 Admitted for: HF,Dyspnea, orthopnea, weight gain, chest pain, lower swelling Readmission Risk: n/a Value-Based Contract: ACO Contact: Contact made with patient: Yes Hi, my name is Martell Garland RN and I am calling from the [facility] on behalf of your Primary Care Provider, Marilee Thakur MD. I understand you were recently in the hospital, so I am calling to check in with you to ensure you are feeling well now that you are home. May I ask you a few questions related to your hospital stay and well-being? Yes Spoke to: Caregiver, Shobha Validation: Validated the person spoken to is actively involved in the patient's care. The patient was identified by Name and Date of . Symptoms: Are you feeling about the same, better or worse since leaving the hospital? Better Medications: Do you have any questions about taking your medications, including which medications you should be on, or do you need refills on your medications? No Medication Review: Declined at this time per patient preference Discharge Instructions: Your Discharge Instructions / After Visit Summary (AVS) are important in guiding you through the recovery process. Do you have any questions related to your discharge instructions? No Home Care: Were you discharged with home care? No Equipment: Do you have all the necessary equipment and supplies needed at your home? Yes The patient verbalizes understanding the use of the equipment and supplies Social: We would like to make sure you have what you need so that your basics needs are met - including your personal safety, food, housing and medications. Would you like to speak with a social work sports team manager to help give you support for any of these needs? No It can be normal to feel anxious or down during a time like this. Would you like to talk to a mental health professional about how you have been feeling? No Action Taken: No needs verbalized. No action required. Follow-Up Appointment: [Appointment / TCM Follow-up within 14 days] I would like to help you schedule a hospital follow-up virtual or telephone visit with your PCP. This is a great way for you to connect with your provider to ensure you have safely transitioned home.If you are agreeable, I will send your request to a lip of shank cutter who will contact and assist you with that appointment. This will give you an opportunity to ask any questions or address any concerns youmay have with your PCP. Inform the patient that if they have any questions or concerns prior to that appointment, to call their PCP's office right away. Appointment Action: No action required, patient declines appointment. Education N/A Targets addressed / completed during outreach: Contact patient within two (2) business days Outreach Outcome: Enrolled in TCM Care Management partners utilized: N/A Martell Garland RN January 06, 2024 9:54 AM documented in this encounterSum[facility]10-29-2024 NotePatient Outreach (AMBCMG) SIA ABDUL ([id number]) 1980 F Date Time Provider Department 01/06/24 MARTELL GARLAND AMBTERRI During your visit today, we recorded the following information about you: Martell Garland, RODRÍGUEZ 01/06/2024 10:00 AM Signed Transition Care Management (TCM) Initial Outreach PCP Update / Actionable Items Eligible for tcm through 11/8/24 Future Appts 02/19 Intm Wstr 03/22/24 [facility] HRTIC TCM Home Visit Referral Source of Stratification: TCM [facility] Hospital Admission Status: Discharged Readmission Risk Score: n/a Patient's zip code: [address] Is zip code within program service area: No Patient meets program referral criteria: No Patient does not qualify for High Risk TCM Home Visit program due to: Patient's zip code is not located within program service area Disposition: Patient does not qualify for HRTIC, will provide TCM outreach follow-up for 30-days Patient Source: Stx-jr-Qgxdcfj (OON) Discharge Outreach Summary: Spoke with Shobha/[employer] Tech [facility], states is feeling way better, looks 1000 x better Denies CP,sob, cough ,wheezing, fever/chills, n/v Appetite good eating and hydrating Voiding and bm without difficulty, 01/06/24 Ambulating up ad clemente Fatigue nothing concerns Aaron le edema always has been not like it was, 100% better then 2 wks ago Today's weight 269 lbs problem with house mate trying to avoid ruff situation working on it, will take some time, has been going for a long time, going back to day rehab next week Denies questions, concerns regarding medications, self care , no issues, stable Patient discharged from [facility] Discharge date: 01/02/24 Admitted for: HF,Dyspnea, orthopnea, weight gain, chest pain, lower swelling Readmission Risk: n/a Value-Based Contract: ACO Contact: Contact made with patient: Yes Hi, my name is Martell Garland RN and I am calling from the [facility] on behalf of your Primary Care Provider, Marilee Thakur MD. I understand you were recently in the hospital, so I am calling to check in with you to ensure you are feeling well now that you are home. May I ask you a few questions related to your hospital stay and well-being? Yes Spoke to: Caregiver, Shobha Validation: Validated the person spoken to is actively involved in the patient's care. The patient was identified by Name and Date of . Symptoms: Are you feeling about the same, better or worse since leaving the hospital? Better Medications: Do you have any questions about taking your medications, including which medications you should be on, or do you need refills on your medications? No Medication Review: Declined at this time per patient preference Discharge Instructions: Your Discharge Instructions / After Visit Summary (AVS) are important in guiding you through the recovery process. Do you have any questions related to your discharge instructions? No Home Care: Were you discharged with home care? No Equipment: Do you have all the necessary equipment and supplies needed at your home? Yes The patient verbalizes understanding the use of the equipment and supplies Social: We would like to make sure you have what you need so that your basics needs are met - including your personal safety, food, housing and medications. Would you like to speak with a social work sports team manager to help give you support for any of these needs? No It can be normal to feel anxious or down during a time like this. Would you like to talk to a mental health professional about how you have been feeling? No Action Taken: No needs verbalized. No action required. Follow-Up Appointment: [Appointment / TCM Follow-up within 14 days] I would like to help you schedule a hospital follow-up virtual or telephone visit with your PCP. This is a great way for you to connect with your provider to ensure you have safely transitioned home. If you are agreeable, I will send your request to a lip of shank cutter who will contact and assist you with that appointment. This will give you an opportunity to ask any questions or address any concerns you may have with your PCP. Inform the patient that if they have any questions or concerns prior to that appointment, to call their PCP's office right away. Appointment Action: No action required, patient declines appointment. Education N/A Targets addressed / completed during outreach: Contact patient within two (2) business days Outreach Outcome: Enrolled in TCM Care Management partners utilized: N/A Martell Garland RN January 06, 2024 9:54 AM Allergies As of Date: 01/06/2024 Noted Allergy Reaction BEE STING 02/28/2023 10 - Anaphylaxis DILANTIN (PHENYTOIN SODIUM EXTEND*01/28/2006 Date Reviewed: 11/18/2023 Reviewed by: Aaliyah Gonzalez MA - Fully Reba (more content not included)...[facility]10-25-2024 [facility] 12-26-2023 Telephone encounter Note* Telephone Encounter - María Avila MA - 12/26/2023 12:36 PM EDT Left message for return call. [facility]10-18-2024 Miscellaneous Notes* Telephone Encounter - María Avila MA - 12/26/2023 12:36 PM EDT Left message for return call. * Telephone Encounter - Mika Kaplan APRN.CNP - 12/26/2023 11:41 AM EDT As previous message - she needs seen earlier then scheduled. Thank you Mika Kaplan APRN.CNP * Telephone Encounter - Annie Brand RN - 12/25/2023 2:30 PM EDT Enrique, nurse @ [facility] calling to let provider know patient weighed 291.1 # this morning. She says patient does not have increase in leg edema nor shortness of breath. Last weight reported was 283# on 12/17/23. Enrique states patient is currently taking Lasix 40 mg daily and Potassium 20 mEq daily. Patient was in [facility] ER on 12/21/23 with SOB. Patient was in [facility] ER again on 12/23/23 for viral gastroenteritis. Patient scheduled for ER F/U with PCP on 01/02/24. Annie Brand RN documented in this encounterSumma [facility]10-18-2024 Telephone encounter Note * Telephone Encounter - Mika Kaplan APRN.CNP - 12/26/2023 11:41 AM EDT As previous message - she needs seen earlier then scheduled. Thank you Mika Kaplan APRN.CNP [facility]10-17-2024 Telephone encounter Note* Telephone Encounter - Annie Brand RN - 12/25/2023 2:30 PM EDT Enrique, nurse @ [facility] calling to let provider know patient weighed 291.1 # this morning. She says patient does not have increase in leg edema nor shortness of breath. Last weight reported was 283# on 12/17/23. Enrique states patient is currently taking Lasix 40 mg daily and Potassium 20 mEq daily. Patient was in [facility] ER on 12/21/23 with SOB. Patient was in [facility] ER again on 12/23/23 for viral gastroenteritis. Patient scheduled for ER F/U with PCP on 01/02/24. Annie Brand RN [facility]10-14-2024 Telephone encounter Note* Telephone Encounter - María Avila MA - 12/22/2023 1:49 PM EDT Pharmacist notified. [facility]10-14-2024 Miscellaneous Notes* Telephone Encounter - María Avila MA - 12/22/2023 1:49 PM EDT Pharmacist notified. * Telephone Encounter - Mika Kaplan APRN.CNP - 12/22/2023 1:41 PM EDT She is supposed to be taking both short term. Is there a way to get her in earlier then in 10 days? Thank you Mika Kaplan APRN.OBED * Telephone Encounter - Annie Brand RN - 12/22/2023 1:26 PM EDT Pharmacist @ [facility] calling to clarify orders for [...] with PCP. Please review and advise. Annie Brand RN documented in this encounterSumma [facility]10-14-2024 Telephone encounter Note * Telephone Encounter - Mika Kaplan APRN.CNP - 12/22/2023 1:41 PM EDT She is supposed to be taking both short term. Is there a way to get her in earlier then in 10 days? Thank you Mika Kaplan APRN.OBED [facility]10-14-2024 Telephone encounter Note* Telephone Encounter - Annie Brand RN - 12/22/2023 1:26 PM EDT Pharmacist @ [facility] calling to clarify orders for [...] with PCP. Please review and advise. Annie Brand RN [facility]10-14-2024 Telephone encounter Note* Telephone Encounter - Erendira Stewart LPN - 12/22/2023 1:22 PM EDT Call returned by Shobha message given as provided. She voices understanding. [facility]10-14-2024 Miscellaneous Notes* Telephone Encounter - Erendira Stewart LPN - 12/22/2023 1:22 PM EDT Call returned by Shobha message given as provided. She voices understanding. * Telephone Encounter - Teresa Ferrera RN - 12/22/2023 11:33 AM EDT Called and left a voicemail for the [facility] to call back and ask for a nurse to receivethe providers message. Teresa Ferrera RN * Telephone Encounter - Mika Kaplan APRN.CNP - 12/22/2023 10:57 AM EDT Prescription Resent. Thank you Mika Kaplan APRN.MANAGER HOTEL * Telephone Encounter - Rah Turner RN - 12/22/2023 9:38 AM EDT [facility]- phoned to report patient was seen in [facility] ER on Friday12-21-23, with SOB. ER gave patient IV lasix and sent patient home. Reports patient is having stress in senior living with another housemate, which is causing patient anxiety, and this was part of the problem, but patient has also been having problems with edema. This nurse phoned Shobha- caregiver @ [facility] to schedule ER f/u appt, and noted in 12-17-23 encounter, Print Line Supervisor had ordered potassium 20 mg daily, and lasix 40 mg daily, until patient is seen. Asked Shobha how patient is doing on this dose. Shobha reports patient never received the medication, b/c it was sent to the wrong pharmacy, should have been sent to [facility]. Shobha did call pcp to report this (see message below), but never received the medication. Reports even if the medication is sent to [facility] today- they still will not receive it until Fri. Pended medications for [facility]. Please send geovanny. Shobha reports patient is doing fine today- and they are working on the problem with the housemate. Scheduled patient hosp f/u appt for 01-01-24. * Telephone Encounter - Erendira Stewart LPN - 12/18/2023 2:09 PM EDT Shobha from [facility] there were medications sent for pt yesterday documented in this [facility] Telephone encounter Note * Telephone Encounter - Teresa Ferrera RN - 12/22/2023 11:33 AM EDT Called and left a voicemail for the [facility] to call back and ask for a nurse to receivethe providers message. Tereas Ferrera RN [facility]10-14-2024 Telephone encounter Note* Telephone Encounter - Mika Kaplan APRN.CNP - 12/22/2023 10:57 AM EDT Prescription Resent. Thank you Mika Kaplan APRN.OBED [facility]10-14-2024 Telephone encounter Note* Telephone Encounter - Rah Turner, RN - 12/22/2023 9:38 AM EDT [facility]- phoned to report patient was seen in [facility] on Friday12-21-23, with SOB. ER gave patient IV lasix and sent patient home. Reports patient is having stress in senior living with another housemate, which is causing patient anxiety, and this was part of the problem, but patient has also been having problems with edema. This nurse phoned Shobha- caregiver @ [facility] to schedule ER f/u appt, and noted in 12-17-23 encounter, Print Line Supervisor had ordered potassium 20 mg daily, and lasix 40 mg daily, until patient is seen. Asked Shobha how patient is doing on this dose. Shobha reports patient never received the medication, b/c it was sent to the wrong pharmacy, should have been sent to [facility]. Shobha did call pcp to report this (see message below), but never received the medication. Reports even if the medication is sent to [facility] today- they still will not receive it until Fri. Pended medications for [facility]. Please send geovanny. Shobha reports patient is doing fine today- and they are working on the problem with the housemate. Scheduled patient hosp f/u appt for 01-01-24. [facility]10-13-[facility] Hospital Discharge instructions Patient Education 12/21/2023 18:10:56 [...] healthcare provider before starting to exercise, especially ifyou have other medical problems. Cut down on [...] or as directed by your healthcare provider [phone] [employer]. [address] [place] [address]. All rights reserved. This information is not intended as a substitute for professional medical care. Always follow yourhealthcare professional's instructions. Follow Up Care 12/21/2023 14:01:46 With:please follow up with your tier lift truck operator Address:Unknown When:2-4 days With:Go to emergency room if symptoms worsen Address:Unknown When:2-4 days With:MARILEE THAKUR MD Address: [address] [place] [address]- When:2-4 days [facility] 10-13-2024 Emergency department Discharge summary Discharge Instructions Thank you for allowing [facility] to assist you with your healthcare needs. The following is importantdischarge information regarding your hospital visit. Diagnosis from Today's Visit Dyspnea What to Do Next Instructions from Your Care Team Please increase dosing of Lasix tomorrow as he had already planned with your physician. Please return to the emergency department should you experience any worsening shortness of breath symptoms or any development of chest pain or other acute concerns. Otherwise follow-up with your tier lift truck operator as scheduled. No qualifying data available. Post Acute Orders No qualifying data available. You Need to Schedule the Following Appointments Follow Up with please follow up with your tier lift truck operator When:Within 2-4 days Follow Up with Go to emergency room if symptoms worsen When:Within 2-4 days Follow Up with MARILEE THAKUR MD When:Within 2-4 days Where:[address] [place] [address]- Allergies Bee Stings Dilantin misc non-codified allergy Medications Please ask your primary doctor or pharmacist before taking any other medication not listed, including over the counter drugs, herbal medications, vitamins and or supplements as they may interact withyour home medications. Please take this list to [...] healthcare provider before starting to exercise, especially ifyou have other medical problems. Cut down on [...] or as directed by your healthcare provider [phone] [employer]. [address] [place] [address], [place] [address]. All rights reserved. This information is not intended as a substitute for professional medical care. Always follow yourhealthcare professional's instructions. Additional Information VACCINATE! IT SAVES LIVES! Members of the community who have not yet received the COVID-19 vaccine and would like to receive it can visit one of [facility] vaccine clinics. There are many vaccine clinic locations within the [facility]. For locations and available times, please visit www.[email or web address].[place].gov/. It is important to note that some COVID mobile vaccine clinics are held outdoors and may be canceled in rainy or stormy conditions. To learn more about pediatric vaccinations (ages 5-11), we invite you to visit the [facility] webpage. https://www.[email or web address].org/pages/5577-Uakua-Pabksrgtxcr-Lbpdhteygo-Xbbzj-Vhn stions.htmlTo learn more about the COVID-19 vaccine, we invite you to visit the CDC website for a list of frequently asked questions. https://www.cdc.gov/coronavirus/2019-ncov/vaccines/faq.html [facility] Patient Portal Access Instructions: Stay connected with your healthcare team and access your personal medical information anytime with the [facility] Patient Portal. If you would like a full copy of your medical records please contact the [facility] Medical Records Department Friday through Friday between 8a.m. and 4:30p.m. Please follow the directions below to access the portal: 1.Access the email account you provided upon registration to the [facility].2.Look for an invitation email from [facility].3.Open the email and access the invitation link: Accept Invitation to [facility]4.Fill in the required perez to create your account. Sign into [email or web address] with your username and password that you [...] you will allow to register on the [facility] Patient Portal for access to your information. You can also access the [facility] Patient Portal on the [employer] Simply click on Health Records under [employer] and then click on the [employer] logo. HOW TO SAFELY DISPOSE OF PRESCRIPTION MEDICATIONS Please use one of the following methods to safely dispose of your unused medications. 1.Use a drug disposal kit: the drug disposal pouch allows you to safely discard your old and unuseddrugs. Ask your nurse to give you one when you are discharged.2.Visit a local take-back location: Many local pharmacies and police departments have programs that collect old and unwanted prescriptiondrugs. Call your local pharmacy or go to http://BlogCN.[employer]/2I2Rn3t to find one close to you.3.Make use of household items: Use cat litter or old coffee grounds to dispose medications if other options arenot available. Mix your drugs with these household products, seal them in an airtight container andthrow it into the garbage. Call [facility]: [phone] to be sure your drugs can be [...] drowsiness, such as benzodiazepines, also known as benzos,including diazepam and alprazolam, muscle relaxants or sleep aids. Never sell or share prescriptionopioids. This is illegal. Store opioids in a secure place and out of reach of others (including children, family, friends and visitors). The last page(s) of this document has been signed and retained as a CHART COPY Signatures Patient Education Materials Shortness of Breath (Dyspnea) Medication Leaflets My discharge plan and instructions have been reviewed and explained to me and I,SIA ABDUL understand my current condition and have read and understand these discharge instructions. I have received a written copy of the plan/instructions. If I have questions, I am aware that I should contact my doctor. 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 Interpreted by: Lori Wesley Preliminary Report By: Matt Rodriguez Electronically signed By Lori Wesley Dictated Date: 12/21/2023 3:23:59 PM Prelim Date: 12/21/2023 3:26:53 PM Sign Date: 12/21/2023 3:28:25 PM Ordering Provider: [facility] Note Sinus rhythm Borderline left axis deviation Abnormal R-wave progression, late transition Borderline T abnormalities, anterior leads Baseline wander in lead(s) V4 Electronic Signature: TABATHA PAGE DO 12/21/2023 14:45:23[facility] 10-10-2024 Telephone encounter Note* Telephone Encounter - Erendira Stewart LPN - 12/18/2023 2:09 PM EDT Shobha from [place] calling states there were medications sent for pt yesterday [facility]10-09-2024 Telephone encounter Note* Telephone Encounter - Mika Kaplan APRN.CNP - 12/17/2023 4:43 PM EDT New scripts sent Mika Kaplan APRN.CNP [facility]10-09-2024 Miscellaneous Notes* Telephone Encounter - Mika Kaplan APRN.CNP - 12/17/2023 4:43 PM EDT New scripts sent Mika Kaplan APRN.CNP * Telephone Encounter - Lillie Marshall RN - 12/17/2023 2:26 PM EDT Clarence called and notified of below , Clarence voices understanding. Clarence is going to pass this along to senior living. Clarence asking if new scripts can be sent to [facility]? Please review and advise, Lillie Marshall RN * Telephone Encounter - Mika Kaplan APRN.CNP - 12/17/2023 1:22 PM EDT Patient needs to be seen to evaluate why this is continuing to occur. Can increase lasix to 40mg and the potassium to 20mg both daily until seen. Thank you Mika Kaplan APRN.CNP * Telephone Encounter - Rah Turner RN - 12/17/2023 9:04 AM EDT Clarence- [facility]- phoned with patient update: Reports pcp [...] Please advise and phone Clarence with reply: [phone] documented in this encounterSum[facility]10-09-2024 Telephone encounter Note * Telephone Encounter - Lillie Marshall RN - 12/17/2023 2:26 PM EDT Clarence called and notified of below , Clarence voices understanding. Clarence is going to pass this along to senior living. Clarence asking if new scripts can be sent to [facility]? Please review and advise, Lillie Marshall RN [facility]10-09-2024 Telephone encounter Note* Telephone Encounter - Mika Kaplan APRN.CNP - 12/17/2023 1:22 PM EDT Patient needs to be seen to evaluate why this is continuing to occur. Can increase lasix to 40mg and the potassium to 20mg both daily until seen. Thank you Mika Kaplan APRN.MANAGER HOTEL [facility]10-09-2024 Telephone encounter Note* Telephone Encounter - Rah Turner RN - 12/17/2023 9:04 AM EDT Clarence- [facility]- phoned with patient update: Reports pcp [...] Please advise and phone Clarence with reply: [phone] [facility]10-04-2024 Telephone encounter Note* Telephone Encounter - Lillie Marshall RN - 12/12/2023 1:28 PM EDT Clarence from [facility] and states that presciption needs to be sent to [facility] and is asking for prescription to be sent to them as well at [phone]. Lillie Marshall RN [facility]10-04-2024 Miscellaneous Notes* Telephone Encounter - Lillie Marshall RN - 12/12/2023 1:28 PM EDT Clarence from [facility] and states that presciption needs to be sent to [facility] and is asking for prescription to be sent to them as well at [phone]. Lillie Marshall RN documented in this encounterSum[facility]10-04-2024 Telephone encounter Note * Telephone Encounter - Ashley Martinez LPN - 12/12/2023 1:05 PM EDT Clarence notified and voiced his understanding. [facility]10-04-2024 Miscellaneous Notes* Telephone Encounter - Ashley Martinez LPN - 12/12/2023 1:05 PM EDT Clarence notified and voiced his understanding. * Telephone Encounter - Mika Kaplan APRN.CNP - 12/12/2023 12:36 PM EDT Hurt current lasix and potassium dose and give Lasix 40mg daily for the next 3 days and potassium 20meq for the next 3 days as well. Then restart current dose. Follow up if no improvement. Thank you Mika Kaplan APRN.CNP * Telephone Encounter - Candelaria Ball LPN - 12/12/2023 8:06 AM EDT Clarence from [facility] calling patient weight this morning was 286 pounds. She has increased edema aaron legs, slightly unsteady gait, vitals good, slight shortness of breath with exertion.He said her Furosemide 20 mg one tablet every other day, wearing her compression stockings, using her lymphedema cuffs. Please advise documented in this encounterSumma [facility]10-04-2024 Telephone encounter Note * Telephone Encounter - Mika Kaplan APRN.CNP - 12/12/2023 12:36 PM EDT Hurt current lasix and potassium dose and give Lasix 40mg daily for the next 3 days and potassium 20meq for the next 3 days as well. Then restart current dose. Follow up if no improvement. Thank you Mika Kaplan APRN.CNP [facility]10-04-2024 Telephone encounter Note* Telephone Encounter - Candelaria Ball LPN - 12/12/2023 8:06 AM EDT Clarence from [facility] calling patient weight this morning was 286 pounds. She has increased edema aaron legs, slightly unsteady gait, vitals good, slight shortness of breath with exertion.He said her Furosemide 20 mg one tablet every other day, wearing her compression stockings, using her lymphedema cuffs. Please advise [facility]09-30-2024 Telephone encounter Note* Telephone Encounter - Lacie Reyes LPN - 12/08/2023 8:08 AM EDT Called and updated Clarence, voiced understanding. Lacie Reyes LPN December 08, 2023 8:08 AM [facility]09-30-2024 Miscellaneous Notes* Telephone Encounter - Lacie Reyes LPN - 12/08/2023 8:08 AM EDT Called and updated Clarence, voiced understanding. Lacie Reyes LPN December 08, 2023 8:08 AM * Telephone Encounter - Marilee Thakur MD - 12/05/2023 7:28 PM EDT Noted, verbal ok for the same Regards, Marilee Thakur MD * Telephone Encounter - Candelaria Ball LPN - 12/05/2023 9:19 AM EDT Clarence from [facility] calling time for recert retirement services. Patient senior living was purchased by another [employer], nurses will be there more. Patient will be weighed once weekly and log kept to bring to appts. Patient is taking her second antibiotic for cellulitis. Please advise documented in this encounterSumma [facility]09-27-2024 Telephone encounter Note * Telephone Encounter - Marilee Thakur MD - 12/05/2023 7:28 PM EDT Noted, verbal ok for the same Regards, Marilee Thakur MD [facility]09-27-2024 Telephone encounter Note* Telephone Encounter - Candelaria Ball LPN - 12/05/2023 9:19 AM EDT Clarence from [facility] calling time for recert retirement services. Patient senior living was purchased by another company, nurses will be there more. Patient will be weighed once weekly and log kept to bring to appts. Patient is taking her second antibiotic for cellulitis. Please advise [facility]09-16-2024 Telephone encounter Note* Telephone Encounter - Pepper Walsh RN - 11/24/2023 2:07 PM EDT The patient has been identified by name [...] TO AFFECTED AREA(S) ON LEGS AT BEDTIME ePpper Walsh RN [facility]09-16-2024 Miscellaneous Notes* Telephone Encounter - Pepper Walsh RN - 11/24/2023 2:07 PM EDT The patient has been identified by name [...] BEDTIME Pepper Walsh RN documented in this encounterSumma [facility]09-10-2024 NoteHNO ID: [id number] Author: MARILEE THAKUR MD Service: ? Author Type: Physician Type: Progress Notes Filed: 11/18/2023 17:45 Note Text: Reason for Visit Patient presents with: Follow Up Sia Abdul is a 42 year old female [...] (CERTAVITE-ANTIOXIDANT) fluticasone (FLONASE) 50 mcg/actuation nasal spray Hwsva-8-CVW-EPA-Fish Oil 1,000 mg (120 mg-180 mg) cap [...] DEVICE - COMPRESSION STOCK (more content not included)...[facility] 11-18-2023 History of Present illness Narrative* Marilee Thakur MD - 11/18/2023 4:21 PM EDT Reason for Visit Patient presents with: Follow Up Sia Abdul is a 42 year old female who presents here today for Above Complaints.. Health Maintenance HEPATITIS B(1 of 3 - 3-dose series) SPIROMETRY PNEUMOCOCCAL(2 - PCV) DEPRESSION ASSESSMENT MAMMOGRAM KALPESH Martell is a very pleasant 41-year-old woman with past medical history of Prader- Willi hypothyroidism, hypothalamic hypogonadism syndrome, lymphedema of the extremities, sleep apnea, mild intermittent asthma, venous insufficiency, obstructive sleep apnea and history of DVT, morbid obesity, who is here for an annual physical. Lymphedema: she has remained around 10 pounds heavier than before in the past year. There is accumulation of more fluid in the lower extremities. Her current compression wraps are not working and thecompression stockings are rolling a down easy and [...] (CERTAVITE-ANTIOXIDANT) fluticasone (FLONASE) 50 mcg/actuation nasal spray Mfogc-3-SLG-EPA-Fish Oil 1,000 mg (120 mg-180 mg) cap [...] POTASSIUM CHLORIDE ER 10 MEQ TABLET,EXTENDED RELEASE(PART/CRYST) Marilee Thakur MD documented in this encounterSumma [facility]09-05-2024 Telephone encounter Note * Telephone Encounter - María Avila MA - 11/13/2023 2:44 PM EDT Shaunna notified. [facility]09-05-2024 Miscellaneous Notes* Telephone Encounter - María Avila MA - 11/13/2023 2:44 PM EDT Shaunna notified. * Telephone Encounter - María Avila MA - 11/13/2023 2:42 PM EDT ----- Message from Mika Kaplan APRN.OBED sent at 11/13/2023 2:13 PM EDT ----- Please let [facility] know preliminary result of US is negative for blood clot. Thank you Mika Kaplan APRN.MANAGER HOTEL documented in this encounterSumma Health [facility]09-05-2024 Telephone encounter Note * Telephone Encounter - María Avila MA - 11/13/2023 2:42 PM EDT ----- Message from Mika Kaplan APRN.OBED sent at 11/13/2023 2:13 PM EDT ----- Please let [facility] know preliminary result of US is negative for blood clot. Thank you Mika Kaplan APRN.MANAGER HOTEL [facility]09-05-2024 Telephone encounter Note* Telephone Encounter - Mika Kaplan APRN.CNP - 11/13/2023 12:24 PM EDT Discussed in appointment today Mika Kaplan APRN.CNP [facility]09-05-2024 Miscellaneous Notes* Telephone Encounter - Mika Kaplan APRN.CNP - 11/13/2023 12:24 PM EDT Discussed in appointment today Mika Kaplan APRN.MANAGER HOTEL * Telephone Encounter - Pamela Singh LPN - 11/12/2023 10:10 AM EDT Clarence called back with more information. He weighed pt today and she weighed 265. She normally weighs 250 to 255. Per Clarence pt may be going to Urgent Care somewhere, he wasn't sure. Pamela Singh LPN * Telephone Encounter - Candelaria Ball LPN - 11/12/2023 9:27 AM EDT Clarence from [facility] calling 2 weeks ago ER put her on antibiotics for cellulitis left lower leg, she has completed rx. He said her left leg is sore, no redness that he can see, but didnot remove her wraps totally. Aware appt on 11/17 for follow up. He is going to call and see if can get transportation sooner to schedule appt before the end of this week to be seen by PCP. documented in this encounterSumma Health [facility]09-05-2024 Instructions* Patient Instructions* Mika Kaplan APRN.OBED - 11/13/2023 11:25 AM EDT Take Lasix daily with daily potassium supplement for the next 4 days. Hold multivitamin and calcium while on doxycycline. documented in this encounterSumma Health [facility] Campus09-05-2024 NoteHNO ID: [id number] Author: MIKA KAPLAN APRN.OBED Service: ? Author Type: Nurse Practitioner Type: Progress Notes Filed: 11/13/2023 12:41 Note Text: CC: Patient presents with: Recheck: ER follow up, cellulitis completed AIB HPI Sia Abdul is a 43 year old female who presents today for cellulitis Unsure if there was injury or what caused infection but noticed while playing basketball that leg was red, hot, more swollen then usual and painful. Went immediately to [facility] ER on 10/29. No US completed to [...] INSTILL 2 SPRAYS IN EACH NOSTRIL DAILY Ytvgb-0-QWM-EPA-Fish Oil 1,000 mg (120 mg-180 mg) cap [...] to ankle. No ope (more content not included)...[facility] 11-13-2023 History of Present illness Narrative* Mika Kaplan APRN.[facility] 11/13/2023 11:10 AM EDT CC: Patient presents with: Recheck: ER follow up, cellulitis completed AIB HPI Sia Abdul is a 43 year old female who presents today for cellulitis Unsure if there was injury or what caused infection but noticed while playing basketball that leg was red, hot, more swollen then usual and painful. Went immediately to [facility] ER on 10/29. No US completed to [...] INSTILL 2 SPRAYS IN EACH NOSTRIL DAILY Joofs-1-HGH-EPA-Fish Oil 1,000 mg (120 mg-180 mg) cap Take 1 capsule by mouth once daily. EPINEPHrine (EPIPEN) 0.3 mg/0.3 mL auto-injector INJECT 1 PEN INTO LATERAL THIGH DIRECTED FOR ALLERGIC REACTIONS TO BEE/WASP STINGS MAY REPEAT IN 5-15 MINUTES IF SYMPTOMS PERSIST * *STAFF REORDER,4 DAYS IN ADVANCE* levothyroxine (SYNTHROID) 100 mcg [...] 2 Puffs as instructed every 4 hours asneeded for wheezing/shortness of breath. furosemide (LASIX) 20 [...] Fri at 4pm Dx:Q87.1 (Patient not taking: Nosig reported) FAMILY HISTORY Problem Relation Age of [...] 19+ 3-dose series) Never done Covid-19 Vaccine( - season) due on 11/09/2023 Influenza Vaccine(1) due on 11/09/2023 Annual PCP Team Chronic Disease Visit due on 03/19/2024 Mammogram Screening due on 07/03/2024 DTaP,Tdap,Td Vaccine(2 - Td or Tdap) due on 01/09/2025 Cervical Cancer Screening due on 05/22/2026 Hepatitis C Screening Completed HIV Screening Completed HPV Vaccine Aged Out DATA REVIEWED: Outside chart from [facility] reviewed. ASSESSMENT/PLAN: 1. Cellulitis of left [...] symptoms occur. Patient agreeable to treatment plan. Mika Kaplan APRN.OBED documented in this encounterSumma Health [facility] Campus09-04-2024 Telephone encounter Note * Telephone Encounter - Pamela Singh LPN - 11/12/2023 10:10 AM EDT Clarence called back with more information. He weighed pt today and she weighed 265. She normally weighs 250 to 255. Per Clarence pt may be going to Urgent Care somewhere, he wasn't sure. Pamela Singh LPN [facility]09-04-2024 Telephone encounter Note* Telephone Encounter - Candelaria Ball LPN - 11/12/2023 9:27 AM EDT Clarence from [facility] calling 2 weeks ago ER put her on antibiotics for cellulitis left lower leg, she has completed rx. He said her left leg is sore, no redness that he can see, but didnot remove her wraps totally. Aware appt on 11/17 for follow up. He is going to call and see if can get transportation sooner to schedule appt before the end of this week to be seen by PCP. [facility]08-02-2024 Telephone encounter Note* Telephone Encounter - Candelaria Ball LPN - 10/10/2023 8:37 AM EDT Phoned Clarence and went over notes below from Dr Thakur with understanding. [facility]08-02-2024 Miscellaneous Notes* Telephone Encounter - Candelaria Ball LPN - 10/10/2023 8:37 AM EDT Phoned Clarence and went over notes below from Dr Thakur with understanding. * Telephone Encounter - Marilee Thakur MD - 10/09/2023 5:58 PM EDT Agree Regards, Marilee Thakur MD * Telephone Encounter - Candelaria Ball LPN - 10/09/2023 1:32 PM EDT Clarence from [facility] calling to recert orders for shelter for the patient, [facility] would agree. Please advise documented in this encounterSumma Health [facility] Campus08-01-2024 Telephone encounter Note * Telephone Encounter - Marilee Thakur MD - 10/09/2023 5:58 PM EDT Agree Regards, Marilee Thakur MD [facility]08-01-2024 Telephone encounter Note* Telephone Encounter - Marilee Thakur MD - 10/09/2023 5:58 PM EDT Noted and agree Regards, Marilee Thakur MD [facility]08-01-2024 Miscellaneous Notes* Telephone Encounter - Marilee Thakur MD - 10/09/2023 5:58 PM EDT Noted and agree Regards, Marilee Thakur MD * Telephone Encounter - Pepper Walsh RN - 10/09/2023 2:08 PM EDT Stephanie with [facility] calling to update PCP that patient has 3cm open area to her right gonzales. Will keep it open to air and does not feel dressing is necessary. Patient is unsure how she acquired it but does pick at skin. HH Nursing will continue to monitor area. No call back needed, if provider agreeable. Pepper Walsh RN . documented in this encounterSum[facility] Health [facility]08-01-2024 Telephone encounter Note * Telephone Encounter - Pepper Walsh RN - 10/09/2023 2:08 PM EDT Stephanie with [facility] calling to update PCP that patient has 3cm open area to her right gonzales. Will keep it open to air and does not feel dressing is necessary. Patient is unsure how she acquired it but does pick at skin. HH Nursing will continue to monitor area. No call back needed, if provider agreeable. Pepper Walsh RN . [facility]08-01-2024 Telephone encounter Note* Telephone Encounter - Candelaria Ball LPN - 10/09/2023 1:32 PM EDT Clarence from [facility] calling to recert orders for shelter for the patient, ifPCP would agree. Please advise [facility]07-12-2024 Telephone encounter Note* Telephone Encounter - Pascale Crena LPN - 09/19/2023 12:56 PM EDT Prescription Refill Information The patient has been [...] Cerna LPN September 19, 2023 12:56 PM [facility]07-12-2024 Miscellaneous Notes* Telephone Encounter - Pascale Cerna LPN - 09/19/2023 12:56 PM EDT Prescription Refill Information The patient has been [...] Cerna LPN September 19, 2023 12:56 PM * Telephone Encounter - Usha Zuniga - 09/19/2023 12:29 PM EDT Prescription Refill Information The patient has been [...] 19, 2023 12:30 PM documented in this encounterSumma Health [facility]07-12-2024 Telephone encounter Note * Telephone Encounter - Usha Zuniga - 09/19/2023 12:29 PM EDT Prescription Refill Information The patient has been [...] Usha Zuniga September 19, 2023 12:30 PM [facility]06-14-2024 Telephone encounter Note* Telephone Encounter - Aaliyah Zhang - 08/22/2023 12:50 PM EDT Prescription Refill Information The patient has been [...] INSTILL 2 SPRAYS IN EACH NOSTRIL DAILY Xsmhq-9-OHH-EPA-Fish Oil 1,000 mg (120 mg-180 mg) cap 31 capsule 10 Sig: Take 1 capsule by mouth once daily. Aaliyah Royal August 22, 2023 12:51 PM [facility] Work Phone: [phone] Miscellaneous Notes* Telephone Encounter - Aaliyah Zhang - 08/22/2023 12:50 PM EDT Prescription Refill Information The patient has been [...] INSTILL 2 SPRAYS IN EACH NOSTRIL DAILY Ecuyi-6-PIQ-EPA-Fish Oil 1,000 mg (120 mg-180 mg) cap 31 capsule 10 Sig: Take 1 capsule by mouth once daily. Aaliyah Royal August 22, 2023 12:51 PM documented in this encounterSumma Health [facility]06-03-2024 Telephone encounter Note * Telephone Encounter - Aaliyah Gonzalez MA - 08/11/2023 12:52 PM EDT Pharmacy request denied. Patient needs to contact office for refills. Aaliyah Gonzalez MA [facility]06-03-2024 Miscellaneous Notes* Telephone Encounter - Aaliyah Gonzalez MA - 08/11/2023 12:52 PM EDT Pharmacy request denied. Patient needs to contact office for refills. Aaliyah Gonzalez MA documented in this encounterSumma Health [facility]05-30-2024 Telephone encounter Note * Telephone Encounter - Darlene Alvarez OCCA - 08/07/2023 12:56 PM EDT Clarence informed of below. ANUPAMA Lira [facility]05-30-2024 Miscellaneous Notes* Telephone Encounter - Darlene Alvarez OCCA - 08/07/2023 12:56 PM EDT Clarence informed of below. ANUPAMA Lira * Telephone Encounter - Moni Norton APRN.CNS - 08/07/2023 12:45 PM EDT OK * Telephone Encounter - Lillie Marshall RN - 08/07/2023 10:43 AM EDT Clarence from [facility] calls to see if provider will continue to follow orders for retirement? Lillie Marshall RN documented in this encounterSumma [facility]05-30-2024 Telephone encounter Note * Telephone Encounter - Moni Norton APRN.CNS - 08/07/2023 12:45 PM EDT OK [facility]05-30-2024 Telephone encounter Note* Telephone Encounter - Lillie Marshall RN - 08/07/2023 10:43 AM EDT Clarence from [facility] calls to see if provider will continue to follow orders for retirement? Lillie Marshall RN [facility]05-29-2024 Telephone encounter Note* Telephone Encounter - Pascale Henderson LPN - 08/06/2023 4:16 PM EDT Prescription Refill Information The patient has been [...] Henderson LPN August 06, 2023 4:16 PM [facility]05-29-2024 Miscellaneous Notes* Telephone Encounter - Pascale Henderson LPN - 08/06/2023 4:16 PM EDT Prescription Refill Information The patient has been [...] Henderson LPN August 06, 2023 4:16 PM * Telephone Encounter - Monica De La Cruz - 08/06/2023 3:29 PM EDT Patient has been identified by name and date of : Yes, Provider Marilee Thakur MD Date 08/06/2023 Time 3:30 pm [...] Thank you. Monica Grady. documented in this encounterSumma Health [facility]05-29-2024 Telephone encounter Note * Telephone Encounter - Monica De La Cruz - 08/06/2023 3:29 PM EDT Patient has been identified by name and date of : Yes, Provider Marilee Thakur MD Date 08/06/2023 Time 3:30 pm [...] care: Please advise. Thank you. Monica Grady. [facility]05-13-2024 Telephone encounter Note* Telephone Encounter - Aaliyah Gonzalez MA - 07/21/2023 2:54 PM EDT Patient has been identified by name and [...] Please advise. Thank you. Aaliyah Gonzalez MA. [facility]05-13-2024 Miscellaneous Notes* Telephone Encounter - Aaliyah Gonzalez MA - 07/21/2023 2:54 PM EDT Patient has been identified by name and [...] Please advise. Thank you. Aaliyah Gonzalez MA. * Telephone Encounter - Usha Zuniga - 07/21/2023 2:10 PM EDT Patient has been identified by name and date of : Yes Requested Prescriptions Pending Prescriptions Disp Refills levothyroxine (SYNTHROID) 100 mcg tablet 31 tablet 10 Sig: take one tablet by mouth daily one hour before breakfast RX INSTRUCTIONS: Patient aware RX will be sent to pharmacy. No need to notify patient. Usha Zuniga documented in this encounterSumma Health [facility]05-13-2024 Telephone encounter Note * Telephone Encounter - Usha Zuniga - 07/21/2023 2:10 PM EDT Patient has been identified by name and date of : Yes Requested Prescriptions Pending Prescriptions Disp Refills levothyroxine (SYNTHROID) 100 mcg tablet 31 tablet 10 Sig: take one tablet by mouth daily one hour before breakfast RX INSTRUCTIONS: Patient aware RX will be sent to pharmacy. No need to notify patient. Usha Zuniga [facility]04-30-2024 Telephone encounter Note* Telephone Encounter - Pascale Henderson LPN - 07/08/2023 9:23 AM EDT Patient has been identified by name and date of : No Patient phones for refill(s): Requested Prescriptions Pending Prescriptions Disp Refills DULERA 100-5 mcg/actuation inhaler [Pharmacy Med Name: Dulera 100-5 MCG/ACT Aerosol] 13 g 10 Sig: INHALE 2 PUFFS BY MOUTH TWICE DAILY ( INSTRUCTED) nystatin (NYAMYC) powder [Pharmacy Med Name: Nyamyc [id number] UNIT/GM Powder] 60 g 10 Sig: APPLY TOPICALLY TWICE DAILY TO AFFECTED AREA(S) ON ABDOMINAL FOLDS Date of last office visit in primary care: 03/19/2023 Date of next office visit in primary care: 03/22/2024 Please advise. Thank you. Pascale Henderson LPN. [facility]04-30-2024 Miscellaneous Notes* Telephone Encounter - Pascale Henderson LPN - 07/08/2023 9:23 AM EDT Patient has been identified by name and date of : No Patient phones for refill(s): Requested Prescriptions Pending Prescriptions Disp Refills DULERA 100-5 mcg/actuation inhaler [Pharmacy Med Name: Dulera 100-5 MCG/ACT Aerosol] 13 g 10 Sig: INHALE 2 PUFFS BY MOUTH TWICE DAILY ( INSTRUCTED) nystatin (NYAMYC) powder [Pharmacy Med Name: Nyamyc [id number] UNIT/GM Powder] 60 g 10 Sig: APPLY TOPICALLY TWICE DAILY TO AFFECTED AREA(S) ON ABDOMINAL FOLDS Date of last office visit in primary care: 03/19/2023 Date of next office visit in primary care: 03/22/2024 Please advise. Thank you. Pascale Henderson LPN. documented in this encounterSumma Health [facility]04-30-2024 Telephone encounter Note * Telephone Encounter - Pascale Henderson LPN - 07/08/2023 9:21 AM EDT Patient has been identified by name and [...] Please advise. Thank you. Pascale Henderson LPN. [facility]04-30-2024 Miscellaneous Notes* Telephone Encounter - Pascale Henderson LPN - 07/08/2023 9:21 AM EDT Patient has been identified by name and [...] you. Pascale Henderson LPN. documented in this encounterSumma Health [facility]04-05-2024 Miscellaneous Notes* Telephone Encounter - Pascale Henderson LPN - 06/13/2023 7:52 AM EDT Patient has been identified by name and [...] office visit in primary care: 03/19/2023 with Latesha Date of next office visit in primary care: Visit date not found Phoned both phone numbers and left message that appointment is needed for Jayshree in August and September 2023. Please advise. Thank you. Pascale Henderson LPN. documented in this encounterSumma Health [facility]03-25-2024 Miscellaneous Notes* Telephone Encounter - María Avila MA - 06/02/2023 3:30 PM EDT Left message for return call. 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 * Telephone Encounter - Mika Kaplan APRN.CNP - 05/29/2023 11:09 AM EDT Dulera ordered in equivalent dosing to symbicort. Call senior living to give below information and change in inhaler. Patient needs to follow up in 4 weeks. Te evaluate how she is doing on new inhaler. Thank you Mika Kaplan APRN.CNP * Telephone Encounter - Radha Funk LPN - 05/26/2023 3:05 PM EDT The budesonide formoterol (symbicort) was denied. Denied [...] caregiver to return call to a nurse. * Telephone Encounter - Radha Funk LPN - 05/26/2023 1:27 PM EDT Sia Abdul (Griffith: [id number]) - [phone] Budesonide-Formoterol Fumarate 160-4.5MCG/ACT aerosol Status: PA Request Created: March 13, 2023 [id number] Sent: May 26, 2023 * Telephone Encounter - Eulalia Laureano RN - 05/26/2023 11:26 AM EDT Prior Authorization Documentation Prior authorization requested for the following medication: Medication: Symbicort Provider: Latesha Garibay Insurance Company Name: Medicare A/B and Medicaid secondary Insurance Company Phone number: Not listed Patient ID number: Medicare: [id number] Medicaid: [id number] [facility] Telephone number: [phone]. Caregiver calls to request. Reports pharmacy is also faxing request. Eulalia Laureano RN documented in this encounterSumma Health [facility]03-22-2024 Miscellaneous Notes* Telephone Encounter - María Avila Ma - 05/30/2023 2:47 PM EDT Faxed to [facility] as requested. * Telephone Encounter - Ofelia Rodriguez - 05/30/2023 12:14 PM EDT Patient verified by name and . Her care provider, Shaunna Bang calling to request a mammogram screening order be faxed to [facility] to complete. She can be reached at [phone] with any questions. Please review and advise. documented in this encounterSumma Health [facility] Campus11-13-2023 Miscellaneous Notes* Telephone Encounter - Mackenzie Elmore LPN - 01/20/2023 2:39 PM EST Patient has been identified by name and date of : Yes Patient phones for refill(s): Requested Prescriptions Pending Prescriptions Disp Refills zeeioln-wvbkbihtn-anvynsl D3 (OYSTER SHELL CALCIUM-VITAMIN D) 500 mg-5 mcg (200 unit) per tablet 62tablet 5 Sig: Take 1 tablet by mouth two times a day with meals. Date of last office visit in primary care: 10/23/2022 Date of next office visit in primary care: 04/25/2023 Last 2 Encounter Wt Readings: Date: Wt: 10/23/2022 111.1 kg (245 lb) 07/01/2022 117 kg (258 lb) Previous labs/tests for medication: Not applicable Please advise. Thank you. Mackenzie Elmore LPN. * Telephone Encounter - Aaliyah Zhang - 01/20/2023 2:12 PM EST Patient has been identified by name and date of : Yes Requested Prescriptions Pending Prescriptions Disp Refills lcyhbmn-szrclfabv-uhyygpu D3 (OYSTER SHELL CALCIUM-VITAMIN D) 500 mg-5 mcg (200 unit) per tablet 62tablet 5 Sig: Take 1 tablet by mouth two times a day with meals. RX INSTRUCTIONS: Patient aware RX will be sent to pharmacy. No need to notify patient. Aaliyah Royal documented in this encounterSumma Health [facility]10-05-2023 Miscellaneous Notes* Telephone Encounter - Mackenzie Elmore LPN - 12/12/2022 3:27 PM EDT Patient has been identified by name and [...] Please advise. Thank you. Mackenzie Elmore LPN * Telephone Encounter - Mima Mejia - 12/12/2022 3:13 PM EDT Patient has been identified by name and [...] and advise. Mima Royal documented in this encounterSumma Health [facility]09-28-2023 History of Present illness Narrative* Food/Nutrition related history: [facility] * Nutrition Assessment in [facility] * Date of Visit: 12/05/2022 * Out-Patient Clinic: Prader-Willi Syndrome * Type of OP Visit: Follow-up via real-time TeleHealth Video Visit (pt in clinic with doctor and RD on video) * Reason for Nutrition Assessment: Nutrition management for medical nutrition therapy for PWS complications * PROBLEM LIST/DX * - Prader-Willi Syndrome (DX: Q87.11) * - Hyperphagia * - Obesity * Past Medical HX: reviewed and discussed history with team (see problem list) * Allergies: drug/food allergies reviewed and discussed with team (see allergy list) * Current Medications: medications/supplements reviewed and discussed with team (see medication list) * Biochemical and Diagnostic Testing: testing was reviewed and discussed with team * NUTRITION HISTORY AND INTAKE: * Pt and caregiver (Anali - [employer] Jump Master) present in out-patient PWS clinic for a scheduled f/u clinic visit. 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 [facility] with [facility]. * Food Seeking Behavior: yes, food locked up and monitored * Food Access Secured: yes * DIET HISTORY AND DAILY NUTRITIONAL INTAKE: * - Dietary Restrictions: high kcals * - Vitamin/Mineral/Supplements: MV w/iron * - Feeding Route: all PO intake * - Enteral Feedings: none * - Kcal Counting: goal is 800 daily * 24 hr Diet Recall: planned menus but unable to elaborate. States similar to last year * - Location of Meals: kitchen * Daily Activities: light walking * Anthropometrics: * - Weight: 109 kg * - Height: 143 cm * - IBW/BMI: 205 %/above IBW * - Weight Velocity: 4 lb gain in 12 months * - BMI: 53 * Classifications and Assessment of Obesity * - Class III: BMI >140% or BMI >40 * Prader-Willi Syndrome Energy Requirements: (Height: 143 cm) * - Wgt Speeder Reduction: 7 kcals/cm height = 800-906 kcals/faster wgt loss * Est. Daily DRI Nutrition/Disease Reference Point/Standard Needs: * - FLUID Needs: 3270 mL * - ENERGY Needs: 900 kcals daily = 7 kcals/cm height = 800-906 kcals/faster wgt loss * - DRI PROTEIN Needs: 45 grams * Adequate Nutrient Intake/Growth and Assessment Compared to Standards/Needs: * Meeting intake compared to needs by >100%, pt continually working on goals by next nutrition reassessment as outlined in the Nutrition Plan of Care Process/Disease Standards per age/disease processes standard needs * Nutrition-Focused Physical and Visual Exam Assessment: * Via real-time video pt appears to be well nourished and fat stores, muscle mass, fluid balance and macro/micronutrients, were normal appearing, with no signs of malnutrition during this exam. Patientdoes not demonstrate evidence of malnutrition based on AND/ASPEN criteria. Physical exam was collaborated with attending MD in clinic with pt. * Growth Assessment, Intake and Malnutrition Indicators: * - Calorie Intake: exceeding goal by >200% * Growth and Intake Assessment Summary Compared to Standards: * Pt is exceeding individual growth/weight standards/goals compared to personalized and standard reference points set by ASPEN/AND/WHO/GMDI/Current Disease Specific Literature. Growth parameters/goals may need adjusted for clinical dx/condition. Pts daily nutritional intake is exceeding pts daily nutritional needs with adjustments are being made and monitored. 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 Pt has gained * 4lbs since last year. May be worth exploring a therapeutic exercise protein if pt would participate. * Nutrition Status: High nutritional risk related to obesity health complications. RD will continue to monitor, evaluate and reassess nutritional status as needed. Nutrition Plan of Care was discussed with the team * NUTRITION INTERVENTION AND PLAN: * - Limit daily calories: 900 * - Diet Principals: higher protein, carb control, calorie restriction * - Protein: 45 grams protein and 100 grams Carbs daily * - Fluids: 106 ounces daily * - Continue Complete Multi-Vitamins with iron daily (no gummy) * - Continue 1000 IU Vitamin D daily and 500 mg Calcium, twice daily * - Continue to keep a daily food log to count calories * - Increase Physical Activity to 60 mins daily (15 mins/4 times daily) with resistance training * - Fiber Goal: 25 grams daily * - Check weight at home weekly, record and report to dietitian * - Send copies of [facility] Food Menus and pts actual % of intake for 3-5 days * Contact the dietitian with any questions or concerns with diet * Follow up in Prader-Willi Clinic in 12 months or when recommended by PWS Team * NUTRITION MONITORING, EVALUATION AND GOALS * - Rate of wgt gain or wgt loss * - Nutrition related clinical history with intake compared to needs * - Evaluate anthropometric measures and z-scores with previous status and reference standards * - Biochemical data, medical tests and procedure findings * - Nutrition Related malnutrition indicators and NFPE status * After Visit Summary: all patient/families questions were answered; plan, goals and follow-up were discussed and agreed upon with care/treatment team and patient/family. * Dietitian Follow-up: dietitian will continue to follow and reassess as needed or requested * Hpzf-zp-Evxi Time and Units: Time: 30 minutes/Units: 2 * Mikayla Nava, MS, RD, LDN l Sr. Genetics Dietitian l Clinical Dietitian, [facility] * [facility] * Genetics Dietitian's Office: ; ; Email: [email or web address] * Genetics/Scheduling: ; ; Urgent Doctor On- Call: * [address] [place] [address] [address] * Clinical Crime Scene Technician Provider: Teresa Mohamud MD * . [address] Work Phone: [phone] 460-842708-18-2023 Miscellaneous Notes* Telephone Encounter - Darlene Alvarez OCCA - 10/25/2022 2:38 PM EDT In review of chart, patient was seen in office 10/23/22 by Keren Kaplan. Closing encounter as nothing further needed at this time. ANUPAMA Lira * Telephone Encounter - María Avila Ma - 10/10/2022 2:02 PM EDT Left message for return call * Telephone Encounter - Mika Kaplan APRN.CNP - 10/10/2022 1:35 PM EDT Please see how patient is doing? If asymptomatic, can just continue with every other day. Thank you Mika Kaplan APRN.CNP * Telephone Encounter - Pamela Singh LPN - 10/09/2022 10:34 AM EDT Anali calling back to check status. Routing to supervisor telephone clerks due to medication issues. Pamela Singh LPN * Telephone Encounter - Mackenzie Elmore LPN - 10/08/2022 3:21 PM EDT Staff member eneida Martell, dose of Lasix 20mg & Potassium 10 mEq today. Patient is to get medication every other day, it is one day early. Patient went to [facility] today, should be home within next30 minutes, [facility] has not receive a call re: Patient today. Please review & advise. Mackenzie Elmore LPN documented in this encounterSumma Health [facility]08-16-2023 History of Present illness Narrative* Older, MOISES Zimmerman.MANAGER HOTEL - 10/23/2022 2:53 PM EDT CC: Patient presents with: Recheck: 3 month follow up HPI Sia Abdul is a 42 year old female [...] been slowly increasing her tolerance and usage timeand is up to 2 hours. Denies any [...] INSTILL 2 SPRAYS IN EACH NOSTRIL DAILY Hujhg-4-PAG-EPA-Fish Oil 1,000 mg (120 mg-180 mg) cap TAKE ONE CAPSULE BY MOUTH DAILY budesonide-formoterol (SYMBICORT) 160-4.5 mcg/actuation inhaler INHALE 2 PUFFS BY MOUTH TWICE DAILY( INSTRUCTED) *SHA[place] WELL nystatin (MYCOSTATIN) powder APPLY [...] 5-15 MINUTES IF SYMPTOMS PERSIST * *STAFF REORDER,4 DAYS IN ADVANCE* benzonatate (TESSALON PERLES) 100 [...] 2 Puffs as instructed every 4 hours asneeded for wheezing/shortness of breath. clotrimazole (LOTRIMIN, CLOTRIM) 1 % cream APPLY TOPICALLY TO AFFECTED AREA(S) ON BILATERAL GROIN TWICE DAILY ammonium lactate (LAC-HYDRIN) 12 % cream APPLY TOPICALLY TO AFFECTED AREA(S) ON LEGS AT BEDTIME ofgwwpe-eatvcotjq-hrwaafh D3 (OYSTER SHELL CALCIUM-VITAMIN D) 500 mg(1,250mg) - 200 unit per tablet Take 1 tablet by [...] Fri at 4pm Dx:Q87.1 (Patient not taking: Nosig reported) FAMILY HISTORY Problem Relation Age of [...] symptoms occur. Patient agreeable to treatment plan. Mika Kaplan APRN.CNP documented in this encounterSumma Health [facility]08-16-2023 Miscellaneous Notes* Telephone Encounter - Candelaria Ball LPN - 10/23/2022 10:38 AM EDT Patient has been identified by name and [...] you. Candelaria Ball LPN documented in this encounterSumma Health [facility]08-03-2023 Miscellaneous Notes* Telephone Encounter - Teresa Ferrera RN - 10/10/2022 12:33 PM EDT Clarence Calderon with [facility] in [place] called in to verify that Pt was still under providers care. documented in this encounterSumma Health [facility]06-19-2023 Miscellaneous Notes* Telephone Encounter - Isela Leyva LPN - 08/26/2022 4:53 PM EDT Last office visit: 07/01/22 Next appointment scheduled: 10/02/22 Patient phones requesting refills as follows: Requested Prescriptions Pending Prescriptions Disp Refills naproxen (NAPROSYN) 500 mg tablet 31 tablet 10 Isela Leyva LPN * Telephone Encounter - Usha Zuniga - 08/26/2022 1:47 PM EDT Patient has been identified by name and date of : Yes Requested Prescriptions Pending Prescriptions Disp Refills naproxen (NAPROSYN) 500 mg tablet 31 tablet 10 RX INSTRUCTIONS: Patient aware RX will be sent to pharmacy. No need to notify patient. Usha Zuinga documented in this encounterSumma Health [facility]05-31-2023 Miscellaneous Notes* Telephone Encounter - Pascale Lorenzo LPN - 08/07/2022 8:17 AM EDT Patient has been identified by name and date of : No Patient phones for refill(s): Requested Prescriptions Pending Prescriptions Disp Refills fluticasone (FLONASE) 50 mcg/actuation nasal spray [Pharmacy Med Name: Fluticasone Propionate 50 MCG/ACT Suspension] 16 g 10 Sig: INSTILL 2 SPRAYS IN EACH NOSTRIL DAILY Pznix-9-CMR-EPA-Fish Oil 1,000 mg (120 mg-180 mg) cap [Pharmacy Med Name: [place]- 3 1000 MG Capsule] 31 capsule 10 Sig: TAKE ONE CAPSULE BY MOUTH DAILY budesonide-formoterol (SYMBICORT) 160-4.5 mcg/actuation inhaler [Pharmacy Med Name: Budesonide-Formoterol Fumarate 160-4.5 MCG/ACT Aerosol] 10.2 g 10 Sig: INHALE 2 PUFFS BY MOUTH TWICE DAILY ( INSTRUCTED) *EVAKE WELL Date of last office visit in primary care: 07/01/22 Last 2 Encounter Wt Readings: Date: Wt: 07/01/2022 117 kg (258 lb) 06/27/2022 113.6 kg (250 lb 6.4 oz) Previous labs/tests for medication: Not applicable Please advise. Thank you. Pascale Lorenzo LPN documented in this encounterSumma Health [facility]05-11-2023 Miscellaneous Notes* Telephone Encounter - Pepper Royal - 07/18/2022 11:47 AM EDT Patient has been identified by name and [...] and advise. Pepper Royal documented in this encounterSumma Health Barber[facility] Campus03-30-2023 Miscellaneous Notes* Telephone Encounter - Alexia Prater LPN - 06/06/2022 3:47 PM EDT Medication or Treatment Administration Consent form signed by Dr. Thakur. Contacated Anali the housemanager notified form is ready for pickup. Form taken to Medical records. documented in this encounterSumma Health Barberton Campus03-28-2023 Miscellaneous Notes* Telephone Encounter - Mackenzie Elmore LPN - 06/04/2022 4:22 PM EDT Patient has been identified by name and [...] you. Mackenzie Elmore LPN documented in this encounterSumma Health [facility]03-09-2023 Miscellaneous Notes* Telephone Encounter - Lillie Marshall RN - 05/16/2022 10:32 AM EST Last Office Visit: 05/02/2022 Future Office Visit: [...] of Last Labs: 12/13/2021 documented in this encounterSumma Health Barber[facility] Campus02-23-2023 History of Present illness Narrative* Marilee Thakur MD - 05/02/2022 11:11 AM EST Reason for Visit Patient presents with: Physical Sia Abdul is a 41 year old female [...] a duplex near by her mother in [place] a couple years ago and is actually [...] which had taken for DVT 3 months ago,lost 9 pounds, not as active as before. She may be eating a little better than before,. And has lost around 3 pounds she loves crab and shrimp. 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 He said thata video chat is good enough for the [...] night, regularly in the past but she hasdramatically decreased it. She does 10 mgs of [...] cream ammonium lactate (LAC-HYDRIN) 12 % cream woorpom-opgnnbhjl-skvissn D3 (OYSTER SHELL CALCIUM-VITAMIN D) 500 mg(1,250mg) - 200 unit per tablet CERTAVITE-ANTIOXIDANT Gauze Bandage 2 [...] 53 Resp 16 Ht 142.2 cm (4' 7.98) Wt 111.6 kg (246 lb) LMP 05/13/2007 [...] diet of 1000 mg/day for under 50, 1200- 1500 mg/day for 50+ 2. Hypothalamic hypogonadism (HCC) [...] Encouraged to more consistently use her stockings Marilee Thakur MD documented in this encounterSumma Health Barber[facility] Campus01-12-2023 History of Present illness Narrative* Mika Eusebio, WAXER TENDER.MANAGER HOTEL - 03/21/2022 1:18 PM EST CC: Patient presents with: Knee Pain: B/L knee pain x 2 weeks HPI Sia Abdul is a 41 year old female [...] that she would take anti-inflammatories like naproxen. Patienthas not taken any medications for this pain. [...] rhinitis, cause unspecified Allergic rhinitis Amenorrhea Cellulitis 2010 leg-resolved Chronic obstructive asthma, unspecified Lymphedema Morbid [...] mcg/actuation inhaler^INHALE 2 PUFFS BY MOUTH TWICE DAILY( INSTRUCTED) *SHAKE WELL^Disp: 10.2 g^Rfl: 10 MEDICAL SUPPLY^Lymphedema massage therapy^Disp: 1 Each^Rfl: 0 IRAIDA 0.35 mg tablet^^Disp: ^Rfl: albuterol HFA (VENTOLIN HFA) 90 mcg/actuation inhaler^Inhale 2 Puffs as instructed every 4 hours asneeded for wheezing/shortness of breath.^Disp: 1 Each^Rfl: 3 naproxen (NAPROSYN) 500 mg tablet^TAKE ONE TABLET BY MOUTH TWICE DAILY NEEDED FOR PAIN/INFLAMMATION OF KNEE *TAKE WITH FOOD* *STAFF REORDER, 4 DAYS IN ADVANCE*^Disp: 31 tablet^Rfl: 10 EPINEPHrine (EPIPEN) 0.3 mg/0.3 mL auto-injector^INJECT 1 PEN INTO LATERAL THIGH DIRECTED FOR ALLERGIC REACTIONS TO BEE/WASP STINGS MAY REPEAT IN 5-15 MINUTES IF SYMPTOMS PERSIST * *STAFF REORDER,4 DAYS IN ADVANCE*^Disp: 2 Each^Rfl: 10 clotrimazole (LOTRIMIN, CLOTRIM) 1 % cream^APPLY TOPICALLY TO AFFECTED AREA(S) ON BILATERAL GROIN TWICE DAILY^Disp: 30 g^Rfl: 10 ammonium lactate (LAC-HYDRIN) 12 % cream^APPLY TOPICALLY TO AFFECTED AREA(S) ON LEGS AT BEDTIME^Disp: 280 g^Rfl: 10 pjdnirk-kdysgewvy-onqcoir D3 (OYSTER SHELL CALCIUM-VITAMIN D) 500 mg(1,250mg) - 200 unit per tablet^Take 1 tablet by mouth [...] symptoms occur. Patient agreeable to treatment plan. Mika Kaplan APRN.CNP documented in this encounterSumma Health [facility]11-29-2022 Miscellaneous Notes* Telephone Encounter - Pascale Lorenzo LPN - 02/05/2022 1:37 PM EST Patient has been identified by name and [...] you. Pascale Lorenzo LPN documented in this encounterSumma Health Barberton Campus11-22-2022 History of Present illness Narrative* Marilee Thakur MD - 01/29/2022 10:02 AM EST Reason for Visit Patient presents with: Recheck: 3 month Sia Abdul is a 41 year old female [...] showed normal ef, normal diastolic dysfucntion and novalvular issues. Going to see her specialist in a couple days. Has been using new wraps on her legs and she needs help getting them on but once she has them on itworks well for her edema. Weight has been [...] cream ammonium lactate (LAC-HYDRIN) 12 % cream gcjftti-buglubymd-ksfcxqt D3 (OYSTER SHELL CALCIUM-VITAMIN D) 500 mg(1,250mg) - 200 unit per tablet CERTAVITE-ANTIOXIDANT Gauze Bandage 2 [...] Sleep deprivation - ICD9: V69.4, ICD10: Z72.820 Marilee Thakur MD documented in this encounterSumma Health Barber[facility] Campus11-16-2022 Miscellaneous Notes* Telephone Encounter - Regan Neville Ma - 01/23/2022 3:05 PM EST Taken to medical records. Anali notified. Regan Neville Ma * Telephone Encounter - Candelaria Ball LPN - 01/22/2022 3:48 PM EST Patient caregiver Anali calling to check status of request for handicap placard rx renewal rx. * Telephone Encounter - Candelaria Ball LPN - 01/11/2022 8:11 AM EDT Patient health care coordinator Anali calling to check status of request. * Telephone Encounter - Eulalia Laureano RN - 01/07/2022 3:06 PM EDT Anali (supervisor brew house) calls to request 2 handicap placards for patient. Anali will pick pulling machine operator in medical records if provider agrees. Pended. Eulalia Laureano RN documented in this encounterSumma Health Barber[facility] Campus10-06-2022 Miscellaneous Notes* Telephone Encounter - Pepper Walsh RN - 12/13/2021 11:01 AM EDT [facility] calling to confirm PCP for patient. Information confirmed. Pepper Walsh RN documented in this encounterSumma Health Barberton Campus09-22-2022 Miscellaneous Notes* Telephone Encounter - María Avila Ma - 11/29/2021 2:29 PM EDT Anali, supervisor brew house notified. * Telephone Encounter - Marilee Thakur MD - 11/29/2021 1:37 PM EDT Talked to genetecist carrington - Please let [...] was increased in the range of mild Pulhypertension, obesity, sleep apnea. Consideration of obesity hypoventilation syndrome- needs cards- * Telephone Encounter - Isela Leyva LPN - 11/29/2021 10:[address] Mohamud from called asking to speak with PCP. Please call him at [phone] between 12-3 PM today. documented in this encounterSumma Health Barberton Campus09-01-2022 History of Present illness Narrative* [facility] * Deepali is a 42 year old female who has presented to the [facility] at [facility]. She is accompanied by her supervisor brew house, Anali. History was obtained by the patient, Anali, and review of medical records. She was last seen here in 11/2021, and was seen by Dr. Reilly narvaez, Meme Nava MS, RD, LDN. At her last visit, we requested she follow up in 6 months, but this was pushed back to today instead. She declined a referral with Dr. Zaida Alfaro today, as she has in the past. * PCP: Dr. Marilee Thakur at [facility], fax number [phone], is currently seeing an INDUSTRIAL LABORER named Older at this office * Interval History: She says that she feels good, and has not been sick. Anali does not report any changes in Deepali's mood, behavior, or health. She sees Dr. Thakur every 3 months * Diet, weight, and physical activity: * Weight/BMI: This visit 240 lbs, 53.24 kg/m2 Last visit (11/29/2021) 236 lbs, 52.42 kg/m2. Please seefull dietary details from a separate RD's note. Now she is still on on 800 loraine/day of diet. She is not regularly weighed. Level of daily physical activity is low. She exercises mostly when she attends the workshop on Friday and Friday, where she works out (e.g., [employer], [employer]) half a day. She just received a permission to walk on the road by herself but rarely does so. 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 * A1c: 5.4, 12/2021 * LDL: 94, 12/2021 * TSH: 2.5, 10/2022 * Others: * - Some of annual labs may not be available from our medical records - they may be accessible on [employer], and will hopefully be more available on [employer]. * - Seeing Gynecology for OCP (for bone health). Dx of uterine prolapse. * - Asthma, using inhalers twice a day. She denies dyspnea, orthopnea, chest pain, or palpitation. * - Lymphedema and venous insufficiency, being managed by Dr. Thakur. Symptoms are not worsening. h/o superficial thrombophlebitis at R thigh (without DVT) diagnosed 08/28, s/p 6 weeks of Eliquis. * - Vision care: trying to get new glasses, sees optometry as recommended per Pascale * - Dental care: [facility] from prior documentation, up to date per Anali * - We plan to call the development system efficiency manager Gayla to discuss her care, and will recommend the patient's mother come with her to future visits as well. * ROS negative if not mentioned above, pertinent positives in HPI. [address] Work Phone: 1(689) 450-533708-22-2022 History of Present illness Narrative* Marilee Thakur MD - 10/29/2021 10:02 AM EDT Reason for Visit Patient presents with: Recheck: 4 month follow up Sia Abdul is a 41 year old female who presents here today for Above Complaints.. Health Maintenance HEPATITIS B(1 of 3 - 3-dose series) SPIROMETRY PNEUMOCOCCAL(2 - PCV) COVID-19 VACCINE(3 - Booster for Moderna series) HPI For her Prader Miguel A, she had an echo, which showed normal ef, normal diastolic dysfucntion and novalvular issues. Going to see her specialist in a couple days. Has been using new wraps on her legs and she needs help getting them on but once she has them on itworks well for her edema. She has been [...] cream ammonium lactate (LAC-HYDRIN) 12 % cream axvpxsp-gdtlkgjqd-kvirbza D3 (OYSTER SHELL CALCIUM-VITAMIN D) 500 mg(1,250mg) - 200 unit per tablet CERTAVITE-ANTIOXIDANT Gauze Bandage 2 [...] F) Resp 16 Ht 142.2 cm (4' 8) Wt 109.8 kg (242 lb) LMP 05/13/2007 [...] Uses her machine on a daily basis. Marilee Thakur MD documented in this [facility]07-14-2022 Miscellaneous Notes* Telephone Encounter - Alexia Prater LPN - 09/20/2021 8:36 AM EDT Patient has been identified by name and date of : Yes Patient phones for refill(s): Pending Prescriptions Disp Refills POTASSIUM CHLORIDE ER 10 MEQ TABLET,EXTENDED RELEASE 45 tablet 2 Sig: Take one tablet on days when you are taking lasix. NAIMA: No Refused Prescriptions Disp Refills Fish Oil-Gurdon-3 Fatty Acids (FISH OIL) 340-1,000 mg cap 31 capsule 10 Sig: Take 1 capsule by mouth once daily. NAIMA: No levothyroxine (SYNTHROID) 100 mcg tablet 31 tablet 10 NAIMA: No Date of last office visit in primary care: 06/28/21 Please advise. Thank you. Alexia Prater LPN documented in this encounterSumma Health Barberton Campus06-28-2022 Miscellaneous Notes* Telephone Encounter - Alexia Lin MA - 09/04/2021 3:45 PM EDT NOV 10/29/21 POLA 08/20/21 Patient electronically sent a request for the following prescription(s) Pending Prescriptions Disp Refills LEVOTHYROXINE 100 MCG TABLET 31 tablet 10 Sig: TAKE ONE TABLET BY MOUTH DAILY ONE HOUR BEFORE BREAKFAST NAIMA: Yes Patient aware RX will be sent to pharmacy. No need to notify patient. Please review. Alexia Lin MA documented in this [facility]06-24-2022 Miscellaneous Notes* Telephone Encounter - María Avila Ma - 08/31/2021 3:16 PM EDT Leyda notified. * Telephone Encounter - Mika Kaplan APRN.CNP - 08/31/2021 3:02 PM EDT Ok to continue with therapy. Thank you Mika Kaplan APRN.OBED * Telephone Encounter - Yazan Franco LPN - 08/31/2021 2:25 PM EDT Leyda calling to check on status of request. Advised provider out of office Th and Fri. Routing to INDUSTRIAL LABORER. Yazan Franco LPN * Telephone Encounter - Annie Brand RN - 08/29/2021 1:42 PM EDT RODRÍGUEZ Crabtree @ [facility] calling to let PCP know patient was recertified for continued nursing visits 1 x/week for nine weeks for weekly skin checks. Asking for verbal saying Dr. Ross and will continue to follow orders. #[phone]. Annie Brand RN documented in this encounterSumma Health Barberton Campus06-13-2022 History of Present illness Narrative* Rae Kaplan APRN.CNP - 08/20/2021 4:02 PM EDT Images from the original note were not included. CC: Patient presents with: sores in groin: X 1 week HPI Sia Abdul is a 41 year old female [...] inhaler INHALE 2 PUFFS BY MOUTH TWICE DAILY( INSTRUCTED) *[facility] Lymphedema massage therapy IRAIDA 0.35 mg tablet albuterol HFA (VENTOLIN HFA) 90 mcg/actuation inhaler Inhale 2 Puffs as instructed every 4 hours asneeded for wheezing/shortness of breath. naproxen (NAPROSYN) 500 mg tablet TAKE ONE TABLET BY MOUTH TWICE DAILY NEEDED FOR PAIN/INFLAMMATION OF KNEE *TAKE WITH FOOD* *STAFF REORDER, 4 DAYS IN ADVANCE* EPINEPHrine (EPIPEN) 0.3 mg/0.3 mL auto-injector INJECT 1 PEN INTO LATERAL THIGH DIRECTED FOR ALLERGIC REACTIONS TO BEE/WASP STINGS MAY REPEAT IN 5-15 MINUTES IF SYMPTOMS PERSIST * *STAFF REORDER,4 DAYS IN ADVANCE* furosemide (LASIX) 20 mg tablet TAKE ONE TABLET BY MOUTH EVERY OTHER DAY clotrimazole (LOTRIMIN, CLOTRIM) 1 % cream APPLY TOPICALLY TO AFFECTED AREA(S) ON BILATERAL GROIN TWICE DAILY ammonium lactate (LAC-HYDRIN) 12 % cream APPLY TOPICALLY TO AFFECTED AREA(S) ON LEGS AT BEDTIME scicdvw-gqvoxueyl-knkjlal D3 (OYSTER SHELL CALCIUM-VITAMIN D) 500 mg(1,250mg) - 200 unit per tablet Take 1 tablet by [...] plan. Rae Kaplan APRN.CNP documented in this encounterSumma Health Barberton Campus06-13-2022 Instructions* Patient Instructions* Rae Kaplan APRN.CNP - 08/20/2021 3:59 PM EDT Keep area(s) clean and dry. Apply Lotrisone cream twice a day If any unusual pain, swelling, red streaks, pus, fever or other signs of worsening infection, call immediately. documented in this encounterSumma Health Barberton Campus06-07-2022 Miscellaneous Notes* Telephone Encounter - Alexia Lin MA - 08/14/2021 2:44 PM EDT NOV 08/17/21 POLA 06/28/21 Patient electronically sent [...] review. Alexia Lin MA documented in this encounterSumma Health Barber[facility] Campus04-29-2022 Miscellaneous Notes* Telephone Encounter - Pascale Lorenzo LPN - 07/06/2021 5:01 PM EDT Order has been faxed. Pascale Lorenzo LPN * Telephone Encounter - Marilee Thakur MD - 07/06/2021 4:41 PM EDT Yes * Telephone Encounter - Lillie Marshall RN - 07/06/2021 11:15 AM EDT Vikki MAZA from [facility] calls and is asking if provider will write an order for Lymphedema massage therapy treatment? If agreeable please fax order to either: Or Lillie Marshall RN documented in this encounterSumma Health Barberton Campus04-21-2022 Miscellaneous Notes* Telephone Encounter - Marilee Thakur MD - 06/28/2021 1:33 PM EDT Patient is having home Physical Therapy evaluate her We will get back with details if that changes Thanks for reaching out * Telephone Encounter - Annie Brand RN - 06/28/2021 12:31 PM EDT Tong in Physical Therapy asking for patient diagnosis for Physical Therapy order. He is also asking for clarification of what specifically PT is to evaluate. Order does not specify area of concern. Annie Brand RN documented in this encounterSumma Health Barberton Campus04-21-2022 History of Present illness Narrative* Marilee Thakur MD - 06/28/2021 11:04 AM EDT Reason for Visit Patient presents with: Recheck: 2 month groin pain Sia Abdul is a 40 year old female who presents here today for Above Complaints.. Health Maintenance SPIROMETRY DEPRESSION SCREENING COVID-19 VACCINE(3 - Booster for Moderna series) HPI New doctor for hai gray: wants an echo , which we [...] cream ammonium lactate (LAC-HYDRIN) 12 % cream cseogqu-qotytvwtg-inbeiwn D3 (OYSTER SHELL CALCIUM-VITAMIN D) 500 mg(1,250mg) - 200 unit per tablet potassium chloride (K-TAB) 10 mEq tablet CERTAVITE-ANTIOXIDANT levothyroxine (SYNTHROID) 100 mcg tablet Gauze Bandage 2 X 2 bndg Desogestrel-Ethinyl Estradiol (APRI) 0.15-0.03 mg per tablet fluticasone (FLONASE) 50 mcg/actuation nasal spray Fish Oil-Gurdon-3 Fatty Acids (FISH OIL) 340-1,000 mg cap [...] assess for need of walk in shower Marilee Thakur MD documented in this encounterSumma Health Barberton Campus04-15-2022 Miscellaneous Notes* Telephone Encounter - Kristie Khan Ma - 06/22/2021 8:57 AM EDT Brianna notified and verbalized understanding. Kristie Khan Ma * Telephone Encounter - Jacquelyn Allen APRN.OBED - 06/22/2021 8:53 AM EDT Agree with below. Jacquelyn Allen APRN.CNP * Telephone Encounter - Pamela Singh LPN - 06/22/2021 8:45 AM EDT Brianna Glasery with [facility] called and states they were contacted to have nursing comeinto the senior living for pt weekly. This will be for skin issues and weight issues. Pt was identified with name and date of . Requesting the followin. verbal order to start care in the home weekly. Okay to leave a message 2. fax last OV for PCP - 04/23/21 to [phone]. This has been faxed. 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 * Telephone Encounter - María Avila Ma - 06/13/2021 3:01 PM EDT Forms received and placed on PCP desk for review. * Telephone Encounter - Mika Kaplan APRN.CNP - 06/13/2021 2:12 PM EDT Has this paperwork been received? Thank you Mika Kaplan APRN.CNP * Telephone Encounter - Mima Parson LPN - 06/13/2021 8:24 AM EDT Pt's caregiver Anali asking if the paperwork that she dropped off last week is completed yet? For is for pt to use her epi pen while at the workshop. Mima Parosn LPN documented in this encounterSumma Health Barber[facility] Campus03-30-2022 Miscellaneous Notes* Telephone Encounter - Alexia Aviles Ma - 06/06/2021 2:57 PM EDT dining manager notified * Telephone Encounter - Alexia Aviles Ma - 06/06/2021 2:56 PM EDT ----- Message from Marilee Thakur MD sent at 06/01/2021 5:32 PM EDT ----- Hip joint and synovium are normal documented in this encounterSumma Health Barberton Campus12-09-2021 NoteHNO ID: [id number] Author: Ricki Hirsch MD Service: ? Author [...] needed basis. This note was generated with [employer] software. It may contain incorrect words, spelling, and punctuation and that were not noted in review of the chart prior to signing. I spent 15 minutes in the visit, with more than 50% of the total ltiq-kz-bykf time of the visit in counseling / coordination of care. Recommendations: #1 continue lymphedema pumping #2 continue lymphedema wraps #3 check with primary care physician and if no contraindications begin enteric-coated baby aspirin on a daily basis.[facility] 01-18-2021 NoteHNO ID: [id number] Author: Ricki Hirsch MD Service: ? Author [...] a month. This note was generated with [employer] software. It may contain incorrect words, spelling, and punctuation and that were not noted in review of the chart prior to signing. I spent 15 minutes in the visit, with more than 50% of the total kyef-lj-tzlg time of the visit in counseling / coordination of care.[facility]11-08-2016 History of Past illness Narrative* Problem Noted Date Resolved Date Venous stasis ulcers 01/16/2016 06/17/2016 BMI 40.0-44.9, adult 12/14/2014 02/09/2015 BMI 50.0-59.9, adult 10/11/2013 12/14/2014 Other lymphedema 04/26/2013 12/14/2014 Mental status change 01/08/2013 12/13/2013 Overview: Transient mental status change; [facility], 12/09/12 Amenorrhea 06/18/2011 12/07/2015 Open wound [...] of this encounter (statuses as of 06/06/2021) [facility] of Past illness Narrative* Problem Noted Date Resolved Date Venous stasis ulcers 01/16/2016 06/17/2016 BMI 40.0-44.9, adult 12/14/2014 02/09/2015 BMI 50.0-59.9, adult 10/11/2013 12/14/2014 Other lymphedema 04/26/2013 12/14/2014 Mental status change 01/08/2013 12/13/2013 Overview: Transient mental status change; [facility], 12/09/12 Amenorrhea 06/18/2011 12/07/2015 Open wound [...] of this encounter (statuses as of 06/14/2021) [facility] of Past illness Narrative* Problem Noted Date Resolved Date Venous stasis ulcers 01/16/2016 06/17/2016 BMI 40.0-44.9, adult 12/14/2014 02/09/2015 BMI 50.0-59.9, adult 10/11/2013 12/14/2014 Other lymphedema 04/26/2013 12/14/2014 Mental status change 01/08/2013 12/13/2013 Overview: Transient mental status change; [facility], 12/09/12 Amenorrhea 06/18/2011 12/07/2015 Open wound [...] of this encounter (statuses as of 06/22/2021) [facility] of Past illness Narrative* Problem Noted Date Resolved Date Venous stasis ulcers 01/16/2016 06/17/2016 BMI 40.0-44.9, adult 12/14/2014 02/09/2015 BMI 50.0-59.9, adult 10/11/2013 12/14/2014 Other lymphedema 04/26/2013 12/14/2014 Mental status change 01/08/2013 12/13/2013 Overview: Transient mental status change; [facility], 12/09/12 Amenorrhea 06/18/2011 12/07/2015 Open wound [...] of this encounter (statuses as of 06/28/2021) [facility] of Past illness Narrative* Problem Noted Date Resolved Date Venous stasis ulcers 01/16/2016 06/17/2016 BMI 40.0-44.9, adult 12/14/2014 02/09/2015 BMI 50.0-59.9, adult 10/11/2013 12/14/2014 Other lymphedema 04/26/2013 12/14/2014 Mental status change 01/08/2013 12/13/2013 Overview: Transient mental status change; [facility], 12/09/12 Amenorrhea 06/18/2011 12/07/2015 Open wound [...] of this encounter (statuses as of 06/28/2021) [facility] of Past illness Narrative* Problem Noted Date Resolved Date Venous stasis ulcers 01/16/2016 06/17/2016 BMI 40.0-44.9, adult 12/14/2014 02/09/2015 BMI 50.0-59.9, adult 10/11/2013 12/14/2014 Other lymphedema 04/26/2013 12/14/2014 Mental status change 01/08/2013 12/13/2013 Overview: Transient mental status change; [facility], 12/09/12 Amenorrhea 06/18/2011 12/07/2015 Open wound [...] of this encounter (statuses as of 07/06/2021) [facility] illness Narrative* Problem Noted Date Resolved Date Venous stasis ulcers 01/16/2016 06/17/2016 BMI 40.0-44.9, adult 12/14/2014 02/09/2015 BMI 50.0-59.9, adult 10/11/2013 12/14/2014 Other lymphedema 04/26/2013 12/14/2014 Mental status change 01/08/2013 12/13/2013 Overview: Transient mental status change; [facility], 12/09/12 Amenorrhea 06/18/2011 12/07/2015 Open wound [...] of this encounter (statuses as of 08/15/2021) [facility] illness Narrative* Problem Noted Date Resolved Date Venous stasis ulcers 01/16/2016 06/17/2016 BMI 40.0-44.9, adult 12/14/2014 02/09/2015 BMI 50.0-59.9, adult 10/11/2013 12/14/2014 Other lymphedema 04/26/2013 12/14/2014 Mental status change 01/08/2013 12/13/2013 Overview: Transient mental status change; [facility], 12/09/12 Amenorrhea 06/18/2011 12/07/2015 Open wound [...] of this encounter (statuses as of 08/20/2021) [facility] of [facility] illness Narrative* Problem Noted Date Resolved Date Venous stasis ulcers 01/16/2016 06/17/2016 BMI 40.0-44.9, adult 12/14/2014 02/09/2015 BMI 50.0-59.9, adult 10/11/2013 12/14/2014 Other lymphedema 04/26/2013 12/14/2014 Mental status change 01/08/2013 12/13/2013 Overview: Transient mental status change; [facility], 12/09/12 Amenorrhea 06/18/2011 12/07/2015 Open wound [...] of this encounter (statuses as of 08/31/2021) [facility] of [facility] illness Narrative* Problem Noted Date Resolved Date Venous stasis ulcers 01/16/2016 06/17/2016 BMI 40.0-44.9, adult 12/14/2014 02/09/2015 BMI 50.0-59.9, adult 10/11/2013 12/14/2014 Other lymphedema 04/26/2013 12/14/2014 Mental status change 01/08/2013 12/13/2013 Overview: Transient mental status change; [facility], 12/09/12 Amenorrhea 06/18/2011 12/07/2015 Open wound [...] of this encounter (statuses as of 09/05/2021) [facility]11-[facility]2016 History of Past illness Narrative* Problem Noted Date Resolved Date Venous stasis ulcers 01/16/2016 06/17/2016 BMI 40.0-44.9, adult 12/14/2014 02/09/2015 BMI 50.0-59.9, adult 10/11/2013 12/14/2014 Other lymphedema 04/26/2013 12/14/2014 Mental status change 01/08/2013 12/13/2013 Overview: Transient mental status change; [facility], 12/09/12 Amenorrhea 06/18/2011 12/07/2015 Open wound [...] of this encounter (statuses as of 09/20/2021) [facility] History of Past illness Narrative* Problem Noted Date Resolved Date Venous stasis ulcers 01/16/2016 06/17/2016 BMI 40.0-44.9, adult 12/14/2014 02/09/2015 BMI 50.0-59.9, adult 10/11/2013 12/14/2014 Other lymphedema 04/26/2013 12/14/2014 Mental status change 01/08/2013 12/13/2013 Overview: Transient mental status change; [facility], 12/09/12 Amenorrhea 06/18/2011 12/07/2015 Open wound [...] of this encounter (statuses as of 10/29/2021) [facility] History of Past illness Narrative* Problem Noted Date Resolved Date Venous stasis ulcers 01/16/2016 06/17/2016 BMI 40.0-44.9, adult 12/14/2014 02/09/2015 BMI 50.0-59.9, adult 10/11/2013 12/14/2014 Other lymphedema 04/26/2013 12/14/2014 Mental status change 01/08/2013 12/13/2013 Overview: Transient mental status change; [facility], 12/09/12 Amenorrhea 06/18/2011 12/07/2015 Open wound [...] of this encounter (statuses as of 11/29/2021) [facility] History of Past illness Narrative* Problem Noted Date Resolved Date Venous stasis ulcers 01/16/2016 06/17/2016 BMI 40.0-44.9, adult 12/14/2014 02/09/2015 BMI 50.0-59.9, adult 10/11/2013 12/14/2014 Other lymphedema 04/26/2013 12/14/2014 Mental status change 01/08/2013 12/13/2013 Overview: Transient mental status change; [facility], 12/09/12 Amenorrhea 06/18/2011 12/07/2015 Open wound [...] of this encounter (statuses as of 12/13/2021) [facility] History of Past illness Narrative* Problem Noted Date Resolved Date Venous stasis ulcers 01/16/2016 06/17/2016 BMI 40.0-44.9, adult 12/14/2014 02/09/2015 BMI 50.0-59.9, adult 10/11/2013 12/14/2014 Other lymphedema 04/26/2013 12/14/2014 Mental status change 01/08/2013 12/13/2013 Overview: Transient mental status change; [facility], 12/09/12 Amenorrhea 06/18/2011 12/07/2015 Open wound [...] of this encounter (statuses as of 01/23/2022) [facility] History of Past illness Narrative* Problem Noted Date Resolved Date Venous stasis ulcers 01/16/2016 06/17/2016 BMI 40.0-44.9, adult 12/14/2014 02/09/2015 BMI 50.0-59.9, adult 10/11/2013 12/14/2014 Other lymphedema 04/26/2013 12/14/2014 Mental status change 01/08/2013 12/13/2013 Overview: Transient mental status change; [facility], 12/09/12 Amenorrhea 06/18/2011 12/07/2015 Open wound [...] of this encounter (statuses as of 01/29/2022) [facility] History of Past illness Narrative* Problem Noted Date Resolved Date Venous stasis ulcers 01/16/2016 06/17/2016 BMI 40.0-44.9, adult 12/14/2014 02/09/2015 BMI 50.0-59.9, adult 10/11/2013 12/14/2014 Other lymphedema 04/26/2013 12/14/2014 Mental status change 01/08/2013 12/13/2013 Overview: Transient mental status change; [facility], 12/09/12 Amenorrhea 06/18/2011 12/07/2015 Open wound [...] of this encounter (statuses as of 02/06/2022) [facility] History of Past illness Narrative* Problem Noted Date Resolved Date Venous stasis ulcers 01/16/2016 06/17/2016 BMI 40.0-44.9, adult 12/14/2014 02/09/2015 BMI 50.0-59.9, adult 10/11/2013 12/14/2014 Other lymphedema 04/26/2013 12/14/2014 Mental status change 01/08/2013 12/13/2013 Overview: Transient mental status change; [facility], 12/09/12 Amenorrhea 06/18/2011 12/07/2015 Open wound [...] of this encounter (statuses as of 03/22/2022) [facility] History of Past illness Narrative* Problem Noted Date Resolved Date Venous stasis ulcers 01/16/2016 06/17/2016 BMI 40.0-44.9, adult 12/14/2014 02/09/2015 BMI 50.0-59.9, adult 10/11/2013 12/14/2014 Other lymphedema 04/26/2013 12/14/2014 Mental status change 01/08/2013 12/13/2013 Overview: Transient mental status change; [facility], 12/09/12 Amenorrhea 06/18/2011 12/07/2015 Open wound [...] of this encounter (statuses as of 05/02/2022) [facility] History of Past illness Narrative* Problem Noted Date Resolved Date Venous stasis ulcers 01/16/2016 06/17/2016 BMI 40.0-44.9, adult 12/14/2014 02/09/2015 BMI 50.0-59.9, adult 10/11/2013 12/14/2014 Other lymphedema 04/26/2013 12/14/2014 Mental status change 01/08/2013 12/13/2013 Overview: Transient mental status change; [facility], 12/09/12 Amenorrhea 06/18/2011 12/07/2015 Open wound [...] of this encounter (statuses as of 05/17/2022) [facility] History of Past illness Narrative* Problem Noted Date Resolved Date Venous stasis ulcers 01/16/2016 06/17/2016 BMI 40.0-44.9, adult 12/14/2014 02/09/2015 BMI 50.0-59.9, adult 10/11/2013 12/14/2014 Other lymphedema 04/26/2013 12/14/2014 Mental status change 01/08/2013 12/13/2013 Overview: Transient mental status change; [facility], 12/09/12 Amenorrhea 06/18/2011 12/07/2015 Open wound [...] of this encounter (statuses as of 06/06/2022) [facility] History of Past illness Narrative* Problem Noted Date Resolved Date Venous stasis ulcers 01/16/2016 06/17/2016 BMI 40.0-44.9, adult 12/14/2014 02/09/2015 BMI 50.0-59.9, adult 10/11/2013 12/14/2014 Other lymphedema 04/26/2013 12/14/2014 Mental status change 01/08/2013 12/13/2013 Overview: Transient mental status change; [facility], 12/09/12 Amenorrhea 06/18/2011 12/07/2015 Open wound [...] of this encounter (statuses as of 07/18/2022) [facility] History of Past illness Narrative* Problem Noted Date Resolved Date Venous stasis ulcers 01/16/2016 06/17/2016 BMI 40.0-44.9, adult 12/14/2014 02/09/2015 BMI 50.0-59.9, adult 10/11/2013 12/14/2014 Other lymphedema 04/26/2013 12/14/2014 Mental status change 01/08/2013 12/13/2013 Overview: Transient mental status change; [facility], 12/09/12 Amenorrhea 06/18/2011 12/07/2015 Open wound [...] of this encounter (statuses as of 08/08/2022) [facility] History of Past illness Narrative* Problem Noted Date Resolved Date Venous stasis ulcers 01/16/2016 06/17/2016 BMI 40.0-44.9, adult 12/14/2014 02/09/2015 BMI 50.0-59.9, adult 10/11/2013 12/14/2014 Other lymphedema 04/26/2013 12/14/2014 Mental status change 01/08/2013 12/13/2013 Overview: Transient mental status change; [facility], 12/09/12 Amenorrhea 06/18/2011 12/07/2015 Open wound [...] of this encounter (statuses as of 08/23/2022) [facility] History of Past illness Narrative* Problem Noted Date Resolved Date Venous stasis ulcers 01/16/2016 06/17/2016 BMI 40.0-44.9, adult 12/14/2014 02/09/2015 BMI 50.0-59.9, adult 10/11/2013 12/14/2014 Other lymphedema 04/26/2013 12/14/2014 Mental status change 01/08/2013 12/13/2013 Overview: Transient mental status change; [facility], 12/09/12 Amenorrhea 06/18/2011 12/07/2015 Open wound [...] of this encounter (statuses as of 08/27/2022) [facility] History of Past illness Narrative* Problem Noted Date Diagnosed Date Resolved Date Venous stasis ulcers 01/16/2016 017 BMI 40.0-44.9, adult 12/14/2014 015 BMI 50.0-59.9, adult 10/11/2013 015 Other lymphedema 04/26/2013 12/14/2014 Mental status change 01/08/2013 014 Overview: Transient mental status change; [facility], 12/09/12 Amenorrhea 06/18/2011 12/07/2015 Open wound [...] of this encounter (statuses as of 10/10/2022) [facility] History of Past illness Narrative* Problem Noted Date Diagnosed Date Resolved Date Venous stasis ulcers 01/16/2016 017 BMI 40.0-44.9, adult 12/14/2014 015 BMI 50.0-59.9, adult 10/11/2013 015 Other lymphedema 04/26/2013 12/14/2014 Mental status change 01/08/2013 014 Overview: Transient mental status change; [facility], 12/09/12 Amenorrhea 06/18/2011 12/07/2015 Open wound [...] of this encounter (statuses as of 10/11/2022) [facility] History of Past illness Narrative* Problem Noted Date Diagnosed Date Resolved Date Venous stasis ulcers 01/16/2016 017 BMI 40.0-44.9, adult 12/14/2014 015 BMI 50.0-59.9, adult 10/11/2013 015 Other lymphedema 04/26/2013 12/14/2014 Mental status change 01/08/2013 014 Overview: Transient mental status change; [facility], 12/09/12 Amenorrhea 06/18/2011 12/07/2015 Open wound [...] of this encounter (statuses as of 10/24/2022) [facility] History of Past illness Narrative* Problem Noted Date Diagnosed Date Resolved Date Venous stasis ulcers 01/16/2016 017 BMI 40.0-44.9, adult 12/14/2014 015 BMI 50.0-59.9, adult 10/11/2013 015 Other lymphedema 04/26/2013 12/14/2014 Mental status change 01/08/2013 014 Overview: Transient mental status change; [facility], 12/09/12 Amenorrhea 06/18/2011 12/07/2015 Open wound [...] of this encounter (statuses as of 10/25/2022) [facility] History of Past illness Narrative* Problem Noted Date Diagnosed Date Resolved Date Venous stasis ulcers 01/16/2016 017 BMI 40.0-44.9, adult 12/14/2014 015 BMI 50.0-59.9, adult 10/11/2013 015 Other lymphedema 04/26/2013 12/14/2014 Mental status change 01/08/2013 014 Overview: Transient mental status change; [facility], 12/09/12 Amenorrhea 06/18/2011 12/07/2015 Open wound [...] of this encounter (statuses as of 10/29/2022) [facility] History of Past illness Narrative* Problem Noted Date Diagnosed Date Resolved Date Venous stasis ulcers 01/16/2016 017 BMI 40.0-44.9, adult 12/14/2014 015 BMI 50.0-59.9, adult 10/11/2013 015 Other lymphedema 04/26/2013 12/14/2014 Mental status change 01/08/2013 014 Overview: Transient mental status change; [facility], 12/09/12 Amenorrhea 06/18/2011 12/07/2015 Open wound [...] of this encounter (statuses as of 12/14/2022) [facility] History of Past illness Narrative* Problem Noted Date Diagnosed Date Resolved Date Venous stasis ulcers 01/16/2016 017 BMI 40.0-44.9, adult 12/14/2014 015 BMI 50.0-59.9, adult 10/11/2013 015 Other lymphedema 04/26/2013 12/14/2014 Mental status change 01/08/2013 014 Overview: Transient mental status change; [facility], 12/09/12 Amenorrhea 06/18/2011 12/07/2015 Open wound [...] of this encounter (statuses as of 01/21/2023) [facility] History of Past illness Narrative* Problem Noted Date Diagnosed Date Resolved Date Venous stasis ulcers 01/16/2016 017 BMI 40.0-44.9, adult 12/14/2014 015 BMI 50.0-59.9, adult 10/11/2013 015 Other lymphedema 04/26/2013 12/14/2014 Mental status change 01/08/2013 014 Overview: Transient mental status change; [facility], 12/09/12 Amenorrhea 06/18/2011 12/07/2015 Open wound [...] of this encounter (statuses as of 02/04/2023) [facility] History of Past illness Narrative* Problem Noted Date Diagnosed Date Resolved Date Venous stasis ulcers 01/16/2016 017 BMI 45.0-49.9, adult 02/09/2015 024 BMI 40.0-44.9, adult 12/14/2014 015 BMI 50.0-59.9, adult 10/11/2013 015 Other lymphedema 04/26/2013 12/14/2014 Mental status change 01/08/2013 014 Overview: Transient mental status change; [facility], 12/09/12 Amenorrhea 06/18/2011 12/07/2015 Open wound [...] of this encounter (statuses as of 05/30/2023) [facility] History of Past illness Narrative* Problem Noted Date Diagnosed Date Resolved Date Venous stasis ulcers 01/16/2016 017 BMI 45.0-49.9, adult 02/09/2015 024 BMI 40.0-44.9, adult 12/14/2014 015 BMI 50.0-59.9, adult 10/11/2013 015 Other lymphedema 04/26/2013 12/14/2014 Mental status change 01/08/2013 014 Overview: Transient mental status change; [facility], 12/09/12 Amenorrhea 06/18/2011 12/07/2015 Open wound [...] of this encounter (statuses as of 06/10/2023) [facility] History of Past illness Narrative* Problem Noted Date Diagnosed Date Resolved Date Venous stasis ulcers 01/16/2016 017 BMI 45.0-49.9, adult 02/09/2015 024 BMI 40.0-44.9, adult 12/14/2014 015 BMI 50.0-59.9, adult 10/11/2013 015 Other lymphedema 04/26/2013 12/14/2014 Mental status change 01/08/2013 014 Overview: Transient mental status change; [facility], 12/09/12 Amenorrhea 06/18/2011 12/07/2015 Open wound [...] of this encounter (statuses as of 06/13/2023) [facility] No data available for this section [facility] Evaluation note* Diagnosis Prader-Willi syndrome- Primary SOB (shortness of breath) Shortness of breath Physical therapy evaluation, initial Other specified examination [facility] Diagnosis Lymphedema- Primary Other lymphedema Prader-Willi syndrome [facility] Diagnosis Skin ulcer of left thigh, limited to breakdown of skin (HCC)- Primary [facility] Diagnosis Lymphedema Other lymphedema [facility] Diagnosis Prader-Willi syndrome- Primary Skin ulcer, limited to breakdown of skin (HCC) Pedal edema Edema Mild persistent asthma without complication Unspecified asthma Obstructive sleep apnea syndrome Obstructive sleep apnea (adult) (pediatric) [facility] Diagnosis Prader-Willi syndrome- Primary Lipid screening Screening for lipoid disorders Encounter for screening for diabetes mellitus Screening for diabetes mellitus Vitamin D deficiency Unspecified vitamin D deficiency Elevated blood sugar Other abnormal glucose Hypothyroidism, unspecified type [facility] [place] [facility] Diagnosis Obstructive sleep apnea syndrome- Primary Obstructive sleep apnea (adult) (pediatric) Encounter for immunization Need for other specified prophylactic vaccination against single bacterial disease Mild intermittent asthma without complication Unspecified asthma Acquired hypothyroidism Unspecified hypothyroidism Lymphedema of right lower extremity Lymphedema of left lower extremity Sleep deprivation Problems related to lack of adequate sleep [facility] [place] [facility] Diagnosis Lymphedema Other lymphedema [facility] [place] [facility]* Diagnosis Bilateral chronic knee pain- Primary Pain in joint, lower leg Acute cough [facility] [place] [facility]* Diagnosis Annual physical exam- Primary Routine general medical examination at a health care facility 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 Obstructive sleep apnea syndrome Obstructive sleep apnea (adult) (pediatric) Mild intermittent asthma without complication Unspecified asthma Acquired hypothyroidism Unspecified hypothyroidism Lymphedema of left lower extremity [facility] [place] [facility]* Diagnosis 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 Bee allergy status Allergy to insects and arachnids [facility] [place] [facility]* Diagnosis Onset Date Resolution Status Menorrhagia with regular cycle acute Encounter for routine gynecological examination noneactive [facility] Work Phone: Evaluation note* Diagnosis Strain of lumbar region, subsequent encounter [facility] [place] [facility]* Diagnosis Strain of lumbar region, subsequent encounter [facility] [place] [facility]* Diagnosis Medication management Encounter for long-term (current) use of other medications Acquired hypothyroidism Unspecified hypothyroidism [facility] [place] [facility]* Diagnosis Lymphedema- Primary Other lymphedema Obstructive sleep apnea syndrome Obstructive sleep apnea (adult) (pediatric) Acquired hypothyroidism Unspecified hypothyroidism Mild intermittent asthma without complication Unspecified asthma [facility] [place] [facility]* Diagnosis Bronchitis Bronchitis, not specified as acute or chronic [facility] [place] [facility]* Diagnosis 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 Bee allergy status Allergy to insects and arachnids [facility] [place] [facility]* Diagnosis Hypothalamic hypogonadism (HCC)- Primary Other [...] Edema, unspecified type [facility] Diagnosis Hypothalamic hypogonadism (HCC)- Primary Other [...] Primary Other lymphedema [facility] Diagnosis Hypothalamic hypogonadism (HCC)- Primary Other [...] left lower quadrant [facility] Diagnosis Hypothalamic hypogonadism (HCC)- Primary Other [...] allergy status Allergy to insects and arachnids Medication management- Primary Encounter for long-term (current) use of other medications [facility] Diagnosis Hypothalamic hypogonadism (HCC)- Primary Other [...] insects and arachnids Lymphedema- Primary Other lymphedema Acute congestive heart failure, unspecified heart failure type (HCC) Lymphedema of left lower extremity Lymphedema of right lower extremity [facility] Diagnosis Hypothalamic hypogonadism (HCC)- Primary Other [...] allergy status Allergy to insects and arachnids Hospital discharge follow-up- Primary Other follow-up examination Encounter for immunization Need for other specified prophylactic vaccination against single bacterial disease Acute congestive heart failure, unspecified heart failure type (HCC) Pulmonary hypertension (HCC) Other chronic pulmonary heart diseases Right ventricular dysfunction Heart disease, unspecified [facility] Diagnosis Acute on chronic right-sided heart failure- Primary Dyspnea on exertion Other dyspnea and respiratory abnormality Morbid obesity (Multi) Morbid obesity Prader-Willi syndrome (HHS-HCC) Prader-Willi syndrome Shortness of breath Bilateral lower extremity edema Pulmonary hypertension (Multi) Other chronic pulmonary heart diseases documented in this encounter [facility] Work Phone: Evaluation note* Diagnosis Dyspnea on exertion Other dyspnea and respiratory abnormality Bilateral lower extremity edema documented in this encounter [facility] Work Phone: Evaluation note* Diagnosis Hypothalamic hypogonadism (HCC)- Primary Other [...] allergy status Allergy to insects and arachnids 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)- Primary Acute on chronic diastolic congestive heart failure (HCC) Acute on chronic diastolic heart failure Nonrheumatic mitral valve regurgitation Pulmonary hypertension (HCC) Other chronic pulmonary heart diseases Chronic obstructive pulmonary disease, unspecified COPD type (HCC) 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 Anasarca Edema [facility] Diagnosis Hypothalamic hypogonadism (HCC)- Primary Other [...] allergy status Allergy to insects and arachnids Acute systolic congestive heart failure (HCC)- Primary Acute systolic heart failure Lymphedema Other lymphedema Hypotension, unspecified hypotension type Acute on chronic diastolic congestive heart failure (HCC) Acute on chronic diastolic heart failure Chronic obstructive pulmonary disease, unspecified COPD type (HCC) 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 [facility] Diagnosis Hypothalamic hypogonadism (HCC)- Primary Other [...] allergy status Allergy to insects and arachnids Acquired hypothyroidism Unspecified hypothyroidism [facility] [place] [facility] Diagnosis Hypothalamic hypogonadism (HCC)- Primary Other [...] allergy status Allergy to insects and arachnids Weight gain- Primary Abnormal weight gain Acute on chronic diastolic congestive heart failure (HCC) Acute on chronic diastolic heart failure Lymphedema of right lower extremity Lymphedema of left lower extremity 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 Bee allergy status Allergy to insects and arachnids 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) Lymphedema Other lymphedema Prader-Willi syndrome [facility] Diagnosis Hypothalamic hypogonadism (HCC)- Primary Other [...] allergy status Allergy to insects and arachnids Acquired hypothyroidism- Primary Unspecified hypothyroidism 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) Dysuria Abdominal mass, unspecified abdominal location On home oxygen therapy Dependence on supplemental oxygen Uterine prolapse Uterine prolapse without mention of vaginal wall prolapse Hematuria, unspecified type [facility] Diagnosis Hypothalamic hypogonadism (HCC)- Primary Other [...] allergy status Allergy to insects and arachnids Lymphedema Other lymphedema Prader-Willi syndrome [facility] Diagnosis Chronic right-sided heart failure- Primary Congestive heart failure, unspecified Dyspnea on exertion Other dyspnea and respiratory abnormality Morbid obesity (Multi) Morbid obesity Prader-Willi syndrome (HHS-HCC) Prader-Willi syndrome Shortness of breath Bilateral lower extremity edema documented in this encounter [facility] Work Phone: Evaluation note* Diagnosis Hypothalamic hypogonadism (HCC)- Primary Other [...] allergy status Allergy to insects and arachnids Mild intermittent asthma without complication- Primary Unspecified asthma [facility] [place] [facility]* Diagnosis Hypothalamic hypogonadism (HCC)- Primary Other [...] allergy status Allergy to insects and arachnids Abdominal mass, unspecified abdominal location [facility] Hyperglycemia- Primary Other abnormal glucose Prader-Willi syndrome (HHS-HCC) Prader-Willi syndrome Hypothyroidism, unspecified type Hyperlipidemia, unspecified hyperlipidemia type Class 3 severe obesity with serious comorbidity and body mass index (BMI) of 50.0 to 59.9 in adult, unspecified obesity type documented in this encounter [facility] Work Phone: Evaluation note* Diagnosis Hypothalamic hypogonadism (HCC)- Primary Other [...] Cellulitis and abscess of leg, except foot Anxiety Anxiety state, unspecified 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) documented [facility] Diagnosis Chronic right-sided heart failure- Primary Congestive heart failure, unspecified Right ventricular dysfunction Unspecified heart disease Prader-Willi syndrome ([facility]-H[facility]) Prader-Willi syndrome Bilateral lower extremity edema documented in this encounter [facility] Work Phone: Evaluation note* Diagnosis 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 Need for vaccination Need for prophylactic vaccination and inoculation against unspecified single disease Prader-Willi syndrome (HCC) Prader-Willi syndrome Obstructive sleep apnea syndrome Obstructive sleep apnea (adult) (pediatric) Acquired hypothyroidism Unspecified hypothyroidism Cellulitis of right lower extremity Cellulitis and abscess of leg, except foot Hypothyroidism, unspecified type- Primary Prader-Willi syndrome (HCC) Prader-Willi syndrome Obstructive sleep apnea syndrome Obstructive sleep apnea (adult) (pediatric) Routine health maintenance Routine general medical examination at a health care facility Morbid obesity, unspecified obesity type (HCC) Acquired hypothyroidism- Primary Unspecified hypothyroidism Need for vaccination Need for prophylactic vaccination and inoculation against unspecified single disease Obstructive sleep apnea syndrome Obstructive sleep apnea (adult) (pediatric) Prader-Willi syndrome (HCC) Prader-Willi syndrome Prediabetes Other abnormal glucose Mixed hyperlipidemia Weight gain, abnormal- Primary Abnormal weight gain 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 Obstructive sleep apnea syndrome Obstructive sleep apnea (adult) (pediatric) Prader-Willi syndrome (HCC) Prader-Willi syndrome Bee allergy status Allergy to insects and arachnids Soft tissue mass- Primary Disorders of soft tissue, unspecified [facility] Sia is a 40 y/o female with history of PWS. * She was last seen in clinic in June of 2020. * At that time senior living was observing food stealing behaviors. * Since last visit she moved in August of last year, though supervisor brew house is the same. * She does have a roommate. * She is present with supervisor brew house Anali today. * She goes to [...] * L - likes crab and shrimp, estonian chicken; salad; bread * S - after [...] 0.8 gm pro/kg DBW ( * 38gm) DX-Racjnbmg-Gfklobmd 1500 Work Phone: History of Present illness [...] other weekend. When visiting her mom, the senior living packs her food and medicine for her to bring. Patient reports that her mom has a camera at home so she can monitor how much food Cristina gets when she is at her moms house. Cristina's supervisor [employer] also reported that the fride, freezer and pantry at the senior living is locked and Cristina has no way of getting any outside food. She does currently take a MVI with Iron as well as Vit D and fish oil. Her most recent labs are from 2020. [facility] [address] DO Work Phone: History of Present [...] if she is still hungry * -supervisor brew house also reports that they do have [...] other weekend. When visiting her mom, the senior living packs her food and medicine for her to bring. Patient reports that her mom has a camera at home so she can monitor how much food Cristina gets when she is at her moms house. Cristina's supervisor brew house also reported that the fride, freezer and pantry at the senior living is locked and Cristina has no way of getting any outside food. She does currently take a MVI with Iron as well as Vit D and fish oil. Her most recent labs are from 2020. [facility] [employer] Work Phone: Hospital Discharge instructions No data available for this section [facility] Progress note No data available for this section [facility] Reason for referral (narrative)* Outpatient Procedure (Urgent) - Closed Specialty Diagnoses / Procedures Referred By Hannah grimm Referred [facility] Diagnoses Pain of left lower extremity Edema, unspecified type Procedures US LEG VEIN DVT UNL VAS LAB DUP-SCAN XTR VEINS UNILATERAL/LIMITED STUDY Mika Kaplan APRN.MANAGER [employer]OTEL [address] [place] [address] [facility] [address] [place] [id number] Referral ID Status Reason Start Date Expiration Date V isits Requested Visits Authorized [id number] Closed Auto-Generate d Referral 11/13/2023 11/12/2024 1 1 [facility] for referral (narrative)* Diagnostic Procedure Only (Routine) - Closed Specialty Diagnoses / Procedures Referred By Hannah grimm Referred To Contact US IMAGING Diagnoses Left groin pain Procedures US HIP LT US COMPL JOINT R-T W/IMAGE DOCUMENTATION Marilee Thakur MD [address] [place] [address] [place] [address] Referral ID Status Reason Start Date Expiration Date V isits Requested Visits Authorized [id number] Closed Auto-Generate d Referral 04/23/2021 05/23/2022 1 1 [facility] for referral (narrative)* Diagnostic Procedure Only (Routine) - Authorized Specialty Diagnoses / Procedures Referred By Contac t Referred To Contact US IMAG[facility] Diagnoses Abdominal mass, unspecified abdominal location Procedures US SOFT TISSUE ABDOMEN US ABDOMINAL REAL TIME W/IMAGE LIMITED Mika Kaplan APRN.CNP [address] [place] [address] [place] [address] Referral ID Status Reason Start Date Expiration Date Visits Requested Visits Authorized [id number] Authorized Auto-Generat ed Referral 04/01/2024 05/01/2025 1 1 [facility] for visit Narrative* Diagnostic Procedure Only (Routine) - Closed Specialty Diagnoses / Procedures Referred By Contac t Referred To Contact US IMAGING Diagnoses Left groin pain Procedures US HIP LT US COMPL JOINT R-T W/IMAGE DOCUMENTATION Marilee Thakur MD [address] [place] [address] [place] [address] Referral ID Status Reason Start Date Expiration Date V isits Requested Visits Authorized [id number] Closed Auto-Generate d Referral 04/23/2021 05/23/2022 1 1 [facility] for visit Narrative* Consultation (Routine) - Authorized Specialty Diagnoses / Procedures Referred By Contac t Referred To Contact Cardiology Diagnoses [place] [address] [facility] [place] [address] Phone: tel: fax: Referral ID Status Reason Start Date Expiration Date Visits Requested Visits Authorized [id number] Authorized Specialty Services Required 12/04/2023 12/03/2024 1 1 [facility] Work Phone: Reason for visit Narrative* CV Imaging (Routine) - Authorized Specialty Diagnoses / Procedures Referred By Hannah grimm Referred To Contact Cardiology Diagnoses Dyspnea on exertion Bilateral lower extremity edema Procedures Transthoracic Echo Complete DC ECHO TTHRC R-T 2D W/WOM-MODE COMPL SPEC&COLR D Isi Goodman MD [address] [employer] [address] [place] [address] Phone: tel: fax: Referral ID Status Reason Start Date Expiration Date Visits Requested Visits Authorized [id number] Authorized Perform Procedure 01/19/2025 1 1 [facility] Work Phone: Reason for visit Narrative* Consultation (Routine) - Authorized Specialty Diagnoses / Procedures Referred By Hannah grimm Referred To Contact Cardiology Diagnoses Dyspnea on exertion Morbid obesity (Multi) Prader-Willi syndrome ([facility]) Shortness of breath Bilateral lower extremity edema Procedures Follow Up In Cardiology Isi Goodman MD [address] [place] [address] Phone: tel: fax: Referral ID Status Reason Start Date Expiration Date V isits Requested Visits Authorized [id number] Authorized 01/20/2024 01/19/2025 1 1 [facility] Work Phone: Summary Purpose Family History No Family History [...] pertinent family history: Mother, Father(V49.89, Z78.9) Status:Active Relationship Condition Age at Onset Recorded Date/T deni grandmother Diabetes mellitus Unknown Unknown Family Member Name Dates Details No pertinent family history: Mother, Father(V49.89, Z78.9) Status:Active Unknown Family Member Name Dates Details No pertinent family history: Mother, Father(V49.89, Z78.9) Status:Active Advance Directives No Advanced Directives Records Found Advance Directive Response Recorded Date/ Time Advance Directives No September 30 3:05pm Living Will No May 10, 2019 8:38pm Power of Mechanical Developer [employer]ver No May 09 0 8:38pm Chief Complaint Patient is here for a follow up visit for prader willi syndrome* Follow up * Accompanied by caregivers homecare. Reason for Referral Specialty Diagnoses / Procedures Referred By Hannah grimm Referred To Contact [facility] Diagnoses Physical therapy evaluation, initial Procedures CONSULT TO PHYSICAL THERAPY PHYSICAL THERAPY EVALUATION HIGH COMPLEX 45 MINS Marilee Thakur MD [address] [place] [address] [facility] [address] [address] Referral ID Status Reason Start Date Expiration Date Visits Requested Visits Authorized [id number] Authorized PCP Requested Referral Auto-Generate d Referral 06/28/2021 06/28/2022 99 99 Specialty Diagnoses / Procedures Referred By Hannah grimm Referred To Contact [facility] Diagnoses Prader-Willi syndrome SOB (shortness of breath) Procedures ECHO ECHO TTHRC R-T 2D W/WOM-MODE COMPL SPEC&COLR D Marilee Thakur MD [address] [place] [address] [facility] [address] [address] Referral ID Status Reason Start Date Expiration Date Visits Requested Visits Authorized [id number] Authorized Auto-Generat ed Referral 06/28/2021 06/28/2022 1 1 Specialty Diagnoses / Procedures Referred By Hannah grimm Referred To Contact [facility] Diagnoses Lymphedema Procedures CONSULT TO LYMPHEDEMA THERAPY OFFICE/OUTPATIENT [facility] MDM 60 MINUTES Marilee Thakur MD [address] [place] [address] [facility] [place] [address] [place] [address] Referral ID Status Reason Start Date Expiration Date Visits Requested Visits Authorized [id number] Authorized Auto-Generat ed Referral 11/18/2023 11/17/2024 99 99 Specialty Diagnoses / Procedures Referred By Contac t Referred To Contact Vascular Surgery Diagnoses Lymphedema Prader-Willi syndrome Procedures CONSULT TO VASCULAR SURGERY OFFICE/OUTPATIENT [facility] 60 MINUTES Marilee Thakur MD [address] [place] [address] Referral ID Status Reason Start Date Expiration Date Visits Requested Visits Authorized [id number] Authorized PCP Requested Referral 02/16/2024 02/15/2025 1 1 Specialty Diagnoses / Procedures Referred By Contac t Referred To Contact Vascular Medicine Diagnoses Lymphedema Prader-Willi syndrome Procedures CONSULT TO VASCULAR MEDICINE OFFICE/OUTPATIENT [facility] 60 MINUTES Marilee Thakur MD [address] [place] [address] Referral ID Status Reason Start Date Expiration Date Visits Requested Visits Authorized [id number] Authorized PCP Requested Referral 02/16/2024 02/15/2025 1 1 Specialty Diagnoses / Procedures Referred By Contac t Referred To Contact Diagnoses Allergic to bees Bee allergy status Rajesh Corona MD [address] [place] [address] Referral ID Status Reason Start Date Expiration Date V isits Requested Visits Authorized [id number] Pending Review 1 1 Specialty Diagnoses / Procedures Referred By Contac t Referred To Contact Diagnoses Mild intermittent asthma without complication Marilee Thakur MD [address] [place] [id number] Referral ID Status Reason Start Date Expiration Date V isits Requested Visits Authorized [id number] Authorized 04/12/2024 04/11/2025 1 1 Chief Complaint and Reason for Visit Chief Complaint Annual (CREPE BOX TENDER) SCREENING Reason for Visit Menorrhagia with reg ular cycle Encounter for routine gynecological examination Additional Source Comments INFORMATION SOURCE (unrecogn ized section and content) DATE CREATED AUTHOR 09/02/2017 [facility] DATE CREATED AUTHOR AUTHOR'S ORGANIZ ATION 02/16/2021 [facility] DATE CREATED AUTHOR AUTHOR'S ORGANIZ ATION 12/12/2022 [facility] DATE CREATED AUTHOR AUTHOR'S ORGANIZ ATION 01/23/2024 [facility] DATE CREATED AUTHOR AUTHOR'S ORGANIZ ATION 03/29/2024 [facility] DATE CREATED AUTHOR AUTHOR'S ORGANIZ ATION 05/08/2024 [facility] DATE CREATED AUTHOR AUTHOR'S ORGANIZ ATION 05/18/2024 [facility] DATE CREATED AUTHOR AUTHOR'S ORGANIZ ATION 06/01/2024 [facility] DATE CREATED AUTHOR AUTHOR'S ORGANIZ ATION 06/19/2024 [facility] DATE CREATED AUTHOR AUTHOR'S ORGANIZ ATION 06/29/2024 [facility] DATE CREATED AUTHOR AUTHOR'S ORGANIZ ATION 07/07/2024 [facility] DATE CREATED AUTHOR AUTHOR'S ORGANIZ ATION 08/12/2024 [facility] Reason for Visit (unrecogniz ed section and content) Reason Comments Results Reason Comments Forms Reason Comments [facility] verbal order ne eded Reason Comments [...] Request 11/24/2023 Reason Comments recert patient for retirement servi ce Reason Comments weight gain Reason Comments Medication Question Reason Onset Date Comments Transition Of Care 01/06/2024 [facility] Discharge 01/01/25 Reason Comments Patient Update weight increasing Reason Comments Hospital F/U And ER visit on 12/10 04/02 Reason Comments weight increase Reason Onset Date Comments Transition Of Care 01/22/2024 [facility] Follow-up Day 20 Reason Comments Request for referral to PT/OT Reason Onset Date Comments Refill Request 02/02/2024 Reason Comments Home Health Orders Reason Comments Hospital F/[facility] 01/26/24 dx CHF Reason Comments [facility]-verbal orders Reason Comments Recheck Medication Reason Comments [facility], verbal order Reason Comments Order Request Reason Comments Hospital F/U [facility] 02/28/24 for pul monary edema and severe pain right shoulder/under arm Medication Problem Bumex is causing hea dache and severe diarrhea and Jayhsree is refusing to take the Bumex Weight Problem Has had a weight gai n of 13 lbs since discharged on 03/01/24.Is on 1000 calorie diet. 2000 mg sodium and 1.5 liter fluid restriction Consult to Palliative Care Needing a written order for compression pumps due to dx of lymph edema will be wearing the pumps during the day. Reason Comments Physical Physical Reason Comments New Patient Specialty Diagnoses / Procedures Referred By Hannah grimm Referred To Contact Vascular Surgery Diagnoses Lymphedema Prader-Willi syndrome Procedures CONSULT TO VASCULAR SURGERY OFFICE/OUTPATIENT [facility] 60 MINUTES Marilee Thakur MD [address] [place] [address] Referral ID Status Reason Start Date Expiration Date V isits Requested Visits Authorized [id number] Closed PCP Requested Referral 02/16/2024 02/15/2025 1 1 Reason Comments [facility] Reason Comments Medication Problem Reason Comments Radiology US Specialty Diagnoses / Procedures Referred By Hannah Referred To Contact US IMAGING Diagnoses Abdominal mass, unspecified abdominal location Procedures US SOFT TISSUE ABDOMEN US ABDOMINAL REAL TIME W/IMAGE LIMITED Eusebio MikaMOISES.MANAGER HOTEL [address] [place] [address] [place] [address] Referral ID Status Reason Start Date Expiration Date V isits Requested Visits Authorized [id number] Closed Auto-Generate d Referral 04/01/2024 05/01/2025 1 1 Reason Comments New Patient Visit Specialty Diagnoses / Procedures Referred By Contuzma t Referred To Contact Endocrinology Diagnoses Prader-Willi syndrome ([facility]) [place] [address] [address] [facility] [place] [address] Phone: tel: fax: Referral ID Status Reason Start Date Expiration Date Visits Requested Visits Authorized [id number] Authorized Specialty Services Required 12/04/2023 12/03/2024 1 1 Reason Comments requesting verbal order Reason Comments Recheck ER follow up, cellul itis Reason Onset Date Comments Refill Request 05/20/2024 Reason Comments Home Health Recertification Reason Onset Date Comments Results 04/21/2024 Reason Onset Date Comments Population Health Navigation Outreach 07/06/2024 [facility] Source Comments (unrecognize d section and content) In the event this informatio n is protected by the Federal Confidentiality of Alcohol and Drug Abuse Patient Records regulations: The Federal rules restrict any use of the information to criminally investigate or prosecute any alcohol or drug abuse patient.[facility] the event this information is protected by the Federal Confidentiality of Alcohol and Drug Abuse Patient Records regulations: The Federal rules restrict any use of the information to criminally investigate or prosecute any alcohol or drug abuse patient.[facility] the event this information is protected by the Federal Confidentiality of Alcohol and Drug Abuse Patient Records regulations: The Federal rules restrict any use of the information to criminally investigate or prosecute any alcohol or drug abuse patient.[facility] the event this information is protected by the Federal Confidentiality of Alcohol and Drug Abuse Patient Records regulations: The Federal rules restrict any use of the information to criminally investigate or prosecute any alcohol or drug abuse patient.[facility] the event this information is protected by the Federal Confidentiality of Alcohol and Drug Abuse Patient Records regulations: The Federal rules restrict any use of the information to criminally investigate or prosecute any alcohol or drug abuse patient.[facility] the event this information is protected by the Federal Confidentiality of Alcohol and Drug Abuse Patient Records regulations: The Federal rules restrict any use of the information to criminally investigate or prosecute any alcohol or drug abuse patient.[facility]In the event this information is protected by the Federal Confidentiality of Alcohol and Drug Abuse Patient Records regulations: The Federal rules restrict any use of the information to criminally investigate or prosecute any alcohol or drug abuse patient.[facility] CampusIn the event this information is protected by the Federal Confidentiality of Alcohol and Drug Abuse Patient Records regulations: The Federal rules restrict any use of the information to criminally investigate or prosecute any alcohol or drug abuse patient.[facility] CampusIn the event this information is protected by the Federal Confidentiality of Alcohol and Drug Abuse Patient Records regulations: The Federal rules restrict any use of the information to criminally investigate or prosecute any alcohol or drug abuse patient.[facility] CampusIn the event this information is protected by the Federal Confidentiality of Alcohol and Drug Abuse Patient Records regulations: The Federal rules restrict any use of the information to criminally investigate or prosecute any alcohol or drug abuse patient.[facility] CampusIn the event this information is protected by the Federal Confidentiality of Alcohol and Drug Abuse Patient Records regulations: The Federal rules restrict any use of the information to criminally investigate or prosecute any alcohol or drug abuse patient.[facility] CampusIn the event this information is protected by the Federal Confidentiality of Alcohol and Drug Abuse Patient Records regulations: The Federal rules restrict any use of the information to criminally investigate or prosecute any alcohol or drug abuse patient.[facility] CampusIn the event this information is protected by the Federal Confidentiality of Alcohol and Drug Abuse Patient Records regulations: The Federal rules restrict any use of the information to criminally investigate or prosecute any alcohol or drug abuse patient.[facility] CampusIn the event this information is protected by the Federal Confidentiality of Alcohol and Drug Abuse Patient Records regulations: The Federal rules restrict any use of the information to criminally investigate or prosecute any alcohol or drug abuse patient.[facility] CampusIn the event this information is protected by the Federal Confidentiality of Alcohol and Drug Abuse Patient Records regulations: The Federal rules restrict any use of the information to criminally investigate or prosecute any alcohol or drug abuse patient.[facility] CampusIn the event this information is protected by the Federal Confidentiality of Alcohol and Drug Abuse Patient Records regulations: The Federal rules restrict any use of the information to criminally investigate or prosecute any alcohol or drug abuse patient.[facility] CampusIn the event this information is protected by the Federal Confidentiality of Alcohol and Drug Abuse Patient Records regulations: The Federal rules restrict any use of the information to criminally investigate or prosecute any alcohol or drug abuse patient.[facility] CampusIn the event this information is protected by the Federal Confidentiality of Alcohol and Drug Abuse Patient Records regulations: The Federal rules restrict any use of the information to criminally investigate or prosecute any alcohol or drug abuse patient.[facility] CampusIn the event this information is protected by the Federal Confidentiality of Alcohol and Drug Abuse Patient Records regulations: The Federal rules restrict any use of the information to criminally investigate or prosecute any alcohol or drug abuse patient.[facility] CampusIn the event this information is protected by the Federal Confidentiality of Alcohol and Drug Abuse Patient Records regulations: The Federal rules restrict any use of the information to criminally investigate or prosecute any alcohol or drug abuse patient.[facility] CampusIn the event this information is protected by the Federal Confidentiality of Alcohol and Drug Abuse Patient Records regulations: The Federal rules restrict any use of the information to criminally investigate or prosecute any alcohol or drug abuse patient.[facility] CampusIn the event this information is protected by the Federal Confidentiality of Alcohol and Drug Abuse Patient Records regulations: The Federal rules restrict any use of the information to criminally investigate or prosecute any alcohol or drug abuse patient.[facility] CampusIn the event this information is protected by the Federal Confidentiality of Alcohol and Drug Abuse Patient Records regulations: The Federal rules restrict any use of the information to criminally investigate or prosecute any alcohol or drug abuse patient.[facility] CampusIn the event this information is protected by the Federal Confidentiality of Alcohol and Drug Abuse Patient Records regulations: The Federal rules restrict any use of the information to criminally investigate or prosecute any alcohol or drug abuse patient.[facility] CampusIn the event this information is protected by the Federal Confidentiality of Alcohol and Drug Abuse Patient Records regulations: The Federal rules restrict any use of the information to criminally investigate or prosecute any alcohol or drug abuse patient.[facility] CampusIn the event this information is protected by the Federal Confidentiality of Alcohol and Drug Abuse Patient Records regulations: The Federal rules restrict any use of the information to criminally investigate or prosecute any alcohol or drug abuse patient.[facility] CampusIn the event this information is protected by the Federal Confidentiality of Alcohol and Drug Abuse Patient Records regulations: The Federal rules restrict any use of the information to criminally investigate or prosecute any alcohol or drug abuse patient.[facility] CampusIn the event this information is protected by the Federal Confidentiality of Alcohol and Drug Abuse Patient Records regulations: The Federal rules restrict any use of the information to criminally investigate or prosecute any alcohol or drug abuse patient.[facility] CampusIn the event this information is protected by the Federal Confidentiality of Alcohol and Drug Abuse Patient Records regulations: The Federal rules restrict any use of the information to criminally investigate or prosecute any alcohol or drug abuse patient.[facility] CampusIn the event this information is protected by the Federal Confidentiality of Alcohol and Drug Abuse Patient Records regulations: The Federal rules restrict any use of the information to criminally investigate or prosecute any alcohol or drug abuse patient.[facility] CampusIn the event this information is protected by the Federal Confidentiality of Alcohol and Drug Abuse Patient Records regulations: The Federal rules restrict any use of the information to criminally investigate or prosecute any alcohol or drug abuse patient.[facility] CampusIn the event this information is protected by the Federal Confidentiality of Alcohol and Drug Abuse Patient Records regulations: The Federal rules restrict any use of the information to criminally investigate or prosecute any alcohol or drug abuse patient.[facility] CampusIn the event this information is protected by the Federal Confidentiality of Alcohol and Drug Abuse Patient Records regulations: The Federal rules restrict any use of the information to criminally investigate or prosecute any alcohol or drug abuse patient.[facility] CampusIn the event this information is protected by the Federal Confidentiality of Alcohol and Drug Abuse Patient Records regulations: The Federal rules restrict any use of the information to criminally investigate or prosecute any alcohol or drug abuse patient.[facility] CampusIn the event this information is protected by the Federal Confidentiality of Alcohol and Drug Abuse Patient Records regulations: The Federal rules restrict any use of the information to criminally investigate or prosecute any alcohol or drug abuse patient.[facility] CampusIn the event this information is protected by the Federal Confidentiality of Alcohol and Drug Abuse Patient Records regulations: The Federal rules restrict any use of the information to criminally investigate or prosecute any alcohol or drug abuse patient.[facility] CampusIn the event this information is protected by the Federal Confidentiality of Alcohol and Drug Abuse Patient Records regulations: The Federal rules restrict any use of the information to criminally investigate or prosecute any alcohol or drug abuse patient.[facility] CampusIn the event this information is protected by the Federal Confidentiality of Alcohol and Drug Abuse Patient Records regulations: The Federal rules restrict any use of the information to criminally investigate or prosecute any alcohol or drug abuse patient.[facility] CampusIn the event this information is protected by the Federal Confidentiality of Alcohol and Drug Abuse Patient Records regulations: The Federal rules restrict any use of the information to criminally investigate or prosecute any alcohol or drug abuse patient.[facility] CampusIn the event this information is protected by the Federal Confidentiality of Alcohol and Drug Abuse Patient Records regulations: The Federal rules restrict any use of the information to criminally investigate or prosecute any alcohol or drug abuse patient.[facility] CampusIn the event this information is protected by the Federal Confidentiality of Alcohol and Drug Abuse Patient Records regulations: The Federal rules restrict any use of the information to criminally investigate or prosecute any alcohol or drug abuse patient.[facility] CampusIn the event this information is protected by the Federal Confidentiality of Alcohol and Drug Abuse Patient Records regulations: The Federal rules restrict any use of the information to criminally investigate or prosecute any alcohol or drug abuse patient.[facility] CampusIn the event this information is protected by the Federal Confidentiality of Alcohol and Drug Abuse Patient Records regulations: The Federal rules restrict any use of the information to criminally investigate or prosecute any alcohol or drug abuse patient.[facility] CampusIn the event this information is protected by the Federal Confidentiality of Alcohol and Drug Abuse Patient Records regulations: The Federal rules restrict any use of the information to criminally investigate or prosecute any alcohol or drug abuse patient.[facility] CampusIn the event this information is protected by the Federal Confidentiality of Alcohol and Drug Abuse Patient Records regulations: The Federal rules restrict any use of the information to criminally investigate or prosecute any alcohol or drug abuse patient.[facility] CampusIn the event this information is protected by the Federal Confidentiality of Alcohol and Drug Abuse Patient Records regulations: The Federal rules restrict any use of the information to criminally investigate or prosecute any alcohol or drug abuse patient.[facility] CampusIn the event this information is protected by the Federal Confidentiality of Alcohol and Drug Abuse Patient Records regulations: The Federal rules restrict any use of the information to criminally investigate or prosecute any alcohol or drug abuse patient.[facility] CampusIn the event this information is protected by the Federal Confidentiality of Alcohol and Drug Abuse Patient Records regulations: The Federal rules restrict any use of the information to criminally investigate or prosecute any alcohol or drug abuse patient.[facility] CampusIn the event this information is protected by the Federal Confidentiality of Alcohol and Drug Abuse Patient Records regulations: The Federal rules restrict any use of the information to criminally investigate or prosecute any alcohol or drug abuse patient.[facility] CampusIn the event this information is protected by the Federal Confidentiality of Alcohol and Drug Abuse Patient Records regulations: The Federal rules restrict any use of the information to criminally investigate or prosecute any alcohol or drug abuse patient.[facility] CampusIn the event this information is protected by the Federal Confidentiality of Alcohol and Drug Abuse Patient Records regulations: The Federal rules restrict any use of the information to criminally investigate or prosecute any alcohol or drug abuse patient.[facility] CampusIn the event this information is protected by the Federal Confidentiality of Alcohol and Drug Abuse Patient Records regulations: The Federal rules restrict any use of the information to criminally investigate or prosecute any alcohol or drug abuse patient.[facility] CampusIn the event this information is protected by the Federal Confidentiality of Alcohol and Drug Abuse Patient Records regulations: The Federal rules restrict any use of the information to criminally investigate or prosecute any alcohol or drug abuse patient.[facility] CampusIn the event this information is protected by the Federal Confidentiality of Alcohol and Drug Abuse Patient Records regulations: The Federal rules restrict any use of the information to criminally investigate or prosecute any alcohol or drug abuse patient.[facility] CampusIn the event this information is protected by the Federal Confidentiality of Alcohol and Drug Abuse Patient Records regulations: The Federal rules restrict any use of the information to criminally investigate or prosecute any alcohol or drug abuse patient.[facility] CampusIn the event this information is protected by the Federal Confidentiality of Alcohol and Drug Abuse Patient Records regulations: The Federal rules restrict any use of the information to criminally investigate or prosecute any alcohol or drug abuse patient.[facility] CampusIn the event this information is protected by the Federal Confidentiality of Alcohol and Drug Abuse Patient Records regulations: The Federal rules restrict any use of the information to criminally investigate or prosecute any alcohol or drug abuse patient.[facility] CampusIn the event this information is protected by the Federal Confidentiality of Alcohol and Drug Abuse Patient Records regulations: The Federal rules restrict any use of the information to criminally investigate or prosecute any alcohol or drug abuse patient.[facility]In the event this information is protected by the Federal Confidentiality of Alcohol and Drug Abuse Patient Records regulations: The Federal rules restrict any use of the information to criminally investigate or prosecute any alcohol or drug abuse patient.[facility] CampusIn the event this information is protected by the Federal Confidentiality of Alcohol and Drug Abuse Patient Records regulations: The Federal rules restrict any use of the information to criminally investigate or prosecute any alcohol or drug abuse patient.[facility] CampusIn the event this information is protected by the Federal Confidentiality of Alcohol and Drug Abuse Patient Records regulations: The Federal rules restrict any use of the information to criminally investigate or prosecute any alcohol or drug abuse patient.[facility] CampusIn the event this information is protected by the Federal Confidentiality of Alcohol and Drug Abuse Patient Records regulations: The Federal rules restrict any use of the information to criminally investigate or prosecute any alcohol or drug abuse patient.[facility] CampusIn the event this information is protected by the Federal Confidentiality of Alcohol and Drug Abuse Patient Records regulations: The Federal rules restrict any use of the information to criminally investigate or prosecute any alcohol or drug abuse patient.[facility] CampusIn the event this information is protected by the Federal Confidentiality of Alcohol and Drug Abuse Patient Records regulations: The Federal rules restrict any use of the information to criminally investigate or prosecute any alcohol or drug abuse patient.[facility] CampusIn the event this information is protected by the Federal Confidentiality of Alcohol and Drug Abuse Patient Records regulations: The Federal rules restrict any use of the information to criminally investigate or prosecute any alcohol or drug abuse patient.[facility]In the event this information is protected by the Federal Confidentiality of Alcohol and Drug Abuse Patient Records regulations: The Federal rules restrict any use of the information to criminally investigate or prosecute any alcohol or drug abuse patient.[facility] CampusIn the event this information is protected by the Federal Confidentiality of Alcohol and Drug Abuse Patient Records regulations: The Federal rules restrict any use of the information to criminally investigate or prosecute any alcohol or drug abuse patient.[facility]In the event this information is protected by the Federal Confidentiality of Alcohol and Drug Abuse Patient Records regulations: The Federal rules restrict any use of the information to criminally investigate or prosecute any alcohol or drug abuse patient.[facility]In the event this information is protected by the Federal Confidentiality of Alcohol and Drug Abuse Patient Records regulations: The Federal rules restrict any use of the information to criminally investigate or prosecute any alcohol or drug abuse patient.[facility]In the event this information is protected by the Federal Confidentiality of Alcohol and Drug Abuse Patient Records regulations: The Federal rules restrict any use of the information to criminally investigate or prosecute any alcohol or drug abuse patient.[facility]In the event this information is protected by the Federal Confidentiality of Alcohol and Drug Abuse Patient Records regulations: The Federal rules restrict any use of the information to criminally investigate or prosecute any alcohol or drug abuse patient.[facility]In the event this information is protected by the Federal Confidentiality of Alcohol and Drug Abuse Patient Records regulations: The Federal rules restrict any use of the information to criminally investigate or prosecute any alcohol or drug abuse patient.[facility]In the event this information is protected by the Federal Confidentiality of Alcohol and Drug Abuse Patient Records regulations: The Federal rules restrict any use of the information to criminally investigate or prosecute any alcohol or drug abuse patient.[facility]In the event this information is protected by the Federal Confidentiality of Alcohol and Drug Abuse Patient Records regulations: The Federal rules restrict any use of the information to criminally investigate or prosecute any alcohol or drug abuse patient.[facility] CampusIn the event this information is protected by the Federal Confidentiality of Alcohol and Drug Abuse Patient Records regulations: The Federal rules restrict any use of the information to criminally investigate or prosecute any alcohol or drug abuse patient.[facility]In the event this information is protected by the Federal Confidentiality of Alcohol and Drug Abuse Patient Records regulations: The Federal rules restrict any use of the information to criminally investigate or prosecute any alcohol or drug abuse patient.[facility]In the event this information is protected by the Federal Confidentiality of Alcohol and Drug Abuse Patient Records regulations: The Federal rules restrict any use of the information to criminally investigate or prosecute any alcohol or drug abuse patient.[facility]In the event this information is protected by the Federal Confidentiality of Alcohol and Drug Abuse Patient Records regulations: The Federal rules restrict any use of the information to criminally investigate or prosecute any alcohol or drug abuse patient.[facility]In the event this information is protected by the Federal Confidentiality of Alcohol and Drug Abuse Patient Records regulations: The Federal rules restrict any use of the information to criminally investigate or prosecute any alcohol or drug abuse patient.[facility]In the event this information is protected by the Federal Confidentiality of Alcohol and Drug Abuse Patient Records regulations: The Federal rules restrict any use of the information to criminally investigate or prosecute any alcohol or drug abuse patient.[facility]In the event this information is protected by the Federal Confidentiality of Alcohol and Drug Abuse Patient Records regulations: The Federal rules restrict any use of the information to criminally investigate or prosecute any alcohol or drug abuse patient.[facility]In the event this information is protected by the Federal Confidentiality of Alcohol and Drug Abuse Patient Records regulations: The Federal rules restrict any use of the information to criminally investigate or prosecute any alcohol or drug abuse patient.[facility]In the event this information is protected by the Federal Confidentiality of Alcohol and Drug Abuse Patient Records regulations: The Federal rules restrict any use of the information to criminally investigate or prosecute any alcohol or drug abuse patient.[facility]In the event this information is protected by the Federal Confidentiality of Alcohol and Drug Abuse Patient Records regulations: The Federal rules restrict any use of the information to criminally investigate or prosecute any alcohol or drug abuse patient.[facility]In the event this information is protected by the Federal Confidentiality of Alcohol and Drug Abuse Patient Records regulations: The Federal rules restrict any use of the information to criminally investigate or prosecute any alcohol or drug abuse patient.[facility]In the event this information is protected by the Federal Confidentiality of Alcohol and Drug Abuse Patient Records regulations: The Federal rules restrict any use of the information to criminally investigate or prosecute any alcohol or drug abuse patient.[facility]In the event this information is protected by the Federal Confidentiality of Alcohol and Drug Abuse Patient Records regulations: The Federal rules restrict any use of the information to criminally investigate or prosecute any alcohol or drug abuse patient.[facility]In the event this information is protected by the Federal Confidentiality of Alcohol and Drug Abuse Patient Records regulations: The Federal rules restrict any use of the information to criminally investigate or prosecute any alcohol or drug abuse patient.[facility]In the event this information is protected by the Federal Confidentiality of Alcohol and Drug Abuse Patient Records regulations: The Federal rules restrict any use of the information to criminally investigate or prosecute any alcohol or drug abuse patient.[facility]In the event this information is protected by the Federal Confidentiality of Alcohol and Drug Abuse Patient Records regulations: The Federal rules restrict any use of the information to criminally investigate or prosecute any alcohol or drug abuse patient.[facility]In the event this information is protected by the Federal Confidentiality of Alcohol and Drug Abuse Patient Records regulations: The Federal rules restrict any use of the information to criminally investigate or prosecute any alcohol or drug abuse patient.[facility]In the event this information is protected by the Federal Confidentiality of Alcohol and Drug Abuse Patient Records regulations: The Federal rules restrict any use of the information to criminally investigate or prosecute any alcohol or drug abuse patient.[facility]In the event this information is protected by the Federal Confidentiality of Alcohol and Drug Abuse Patient Records regulations: The Federal rules restrict any use of the information to criminally investigate or prosecute any alcohol or drug abuse patient.[facility]In the event this information is protected by the Federal Confidentiality of Alcohol and Drug Abuse Patient Records regulations: The Federal rules restrict any use of the information to criminally investigate or prosecute any alcohol or drug abuse patient.[facility]In the event this information is protected by the Federal Confidentiality of Alcohol and Drug Abuse Patient Records regulations: The Federal rules restrict any use of the information to criminally investigate or prosecute any alcohol or drug abuse patient.[facility]In the event this information is protected by the Federal Confidentiality of Alcohol and Drug Abuse Patient Records regulations: The Federal rules restrict any use of the information to criminally investigate or prosecute any alcohol or drug abuse patient.[facility]In the event this information is protected by the Federal Confidentiality of Alcohol and Drug Abuse Patient Records regulations: The Federal rules restrict any use of the information to criminally investigate or prosecute any alcohol or drug abuse patient.[facility]In the event this information is protected by the Federal Confidentiality of Alcohol and Drug Abuse Patient Records regulations: The Federal rules restrict any use of the information to criminally investigate or prosecute any alcohol or drug abuse patient.[facility]In the event this information is protected by the Federal Confidentiality of Alcohol and Drug Abuse Patient Records regulations: The Federal rules restrict any use of the information to criminally investigate or prosecute any alcohol or drug abuse patient.[facility]In the event this information is protected by the Federal Confidentiality of Alcohol and Drug Abuse Patient Records regulations: The Federal rules restrict any use of the information to criminally investigate or prosecute any alcohol or drug abuse patient.[facility]In the event this information is protected by the Federal Confidentiality of Alcohol and Drug Abuse Patient Records regulations: The Federal rules restrict any use of the information to criminally investigate or prosecute any alcohol or drug abuse patient.[facility]In the event this information is protected by the Federal Confidentiality of Alcohol and Drug Abuse Patient Records regulations: The Federal rules restrict any use of the information to criminally investigate or prosecute any alcohol or drug abuse patient.[facility]In the event this information is protected by the Federal Confidentiality of Alcohol and Drug Abuse Patient Records regulations: The Federal rules restrict any use of the information to criminally investigate or prosecute any alcohol or drug abuse patient.[facility]In the event this information is protected by the Federal Confidentiality of Alcohol and Drug Abuse Patient Records regulations: The Federal rules restrict any use of the information to criminally investigate or prosecute any alcohol or drug abuse patient.[facility]In the event this information is protected by the Federal Confidentiality of Alcohol and Drug Abuse Patient Records regulations: The Federal rules restrict any use of the information to criminally investigate or prosecute any alcohol or drug abuse patient.[facility] CampusIn the event this information is protected by the Federal Confidentiality of Alcohol and Drug Abuse Patient Records regulations: The Federal rules restrict any use of the information to criminally investigate or prosecute any alcohol or drug abuse patient.[facility] CampusIn the event this information is protected by the [facility] Confidentiality of Alcohol and Drug Abuse Patient Records regulations: The Federal rules restrict any use of the information to criminally investigate or prosecute any alcohol or drug abuse patient.[facility] CampusIn the event this information is protected by the Federal Confidentiality of Alcohol and Drug Abuse Patient Records regulations: The Federal rules restrict any use of the information to criminally investigate or prosecute any alcohol or drug abuse patient.[facility] Care Teams (unrecognized sec tion and content) Curriculum Consultant Relationship Specialty Start Date End Date Marilee Thakur MD [address], [place] [id number] PCP - General Internal Medicine 12/13/15 Curriculum Consultant Relationship Specialty Start Date End Date Marilee Thakur MD [address], [place] [phone] PCP - General Internal Medicine 12/13/15 Curriculum Consultant Relationship Specialty Start Date End Date Marilee Thakur MD [address], [place] [id number] PCP - General Internal Medicine 12/13/15 Curriculum Consultant Relationship Specialty Start Date End Date Marilee Thakur MD [address] [place] [address] PCP - General Internal Medicine 12/13/15 Curriculum Consultant Relationship Specialty Start Date End Date Marilee Thakur MD [address] [place] [address] PCP - General Internal Medicine 12/13/15 Curriculum Consultant Relationship Specialty Start Date End Date Marilee Thakur MD [address] [place] [address] PCP - General Internal Medicine 12/13/15 Curriculum Consultant Relationship Specialty Start Date End Date Marilee Thakur MD [address] [place] [address] PCP - General Internal Medicine 12/13/15 Curriculum Consultant Relationship Specialty Start Date End Date Marilee Thakur MD [address] [place] [address] PCP - General Internal Medicine 12/13/15 Curriculum Consultant Relationship Specialty Start Date End Date Marilee Thakur MD [address] [place] [address] PCP - General Internal Medicine 12/13/15 Curriculum Consultant Relationship Specialty Start Date End Date Marilee Thakur MD [address] [place] [address] PCP - General Internal Medicine 12/13/15 Curriculum Consultant Relationship Specialty Start Date End Date Marilee Thakur MD [address] [place] [address] PCP - General Internal Medicine 12/13/15 Curriculum Consultant Relationship Specialty Start Date End Date Marilee Thakur MD [address] [place] [address] PCP - General Internal Medicine 12/13/15 Curriculum Consultant Relationship Specialty Start Date End Date Marilee Thakur MD [address] [facility] [place] [address] PCP - General Internal Medicine 12/13/15 Curriculum Consultant Relationship Specialty Start Date End Date Marilee Thakur MD [address] [facility] [place] [address] PCP - General Internal Medicine 12/13/15 Team Status: Active Member Role Status Dates No Primary Care Physician Family Provider Active Dr. Marilee Thakur MD Primary Care Provider Active Team Status: Inactive Member Role Status Dates Dr. Marilee Thakur MD Primary Care Provider, Referring Provider Active Cecilia Fontenot INDUSTRIAL LABORER, INDUSTRIAL LABORER-C Attending Provider Active Team Status: Inactive Member Role Status Dates Dr. Marilee Thakur MD Primary Care Provider Active Cecilia Fontenot INDUSTRIAL LABORER, INDUSTRIAL LABORER-C Attending Provider, Referring Provider Active Curriculum Consultant Relationship Specialty Start Date End Date Marilee Thakur MD [address] [facility] [place] [address] PCP - General Internal Medicine 12/13/15 Curriculum Consultant Relationship Specialty Start Date End Date Marilee Thakur MD [address] [facility] [place] [address] PCP - General Internal Medicine 12/13/15 Curriculum Consultant Relationship Specialty Start Date End Date Marilee Thakur MD [address] [facility] [place] [address] PCP - General Internal Medicine 12/13/15 Curriculum Consultant Relationship Specialty Start Date End Date Marilee Thakur MD [address] [facility] [place] [address] PCP - General Internal Medicine 12/13/15 Curriculum Consultant Relationship Specialty Start Date End Date Marilee Thakur MD [address] [facility] [place] [address] PCP - General Internal Medicine 12/13/15 Curriculum Consultant Relationship Specialty Start Date End Date Marilee Thakur MD [address] [facility] [place] [address] PCP - General Internal Medicine 12/13/15 Curriculum Consultant Relationship Specialty Start Date End Date Marilee Thakur MD [address] [facility] [place] [address] PCP - General Internal Medicine 12/13/15 Curriculum Consultant Relationship Specialty Start Date End Date Marilee Thakur MD [address] [facility] [place] [address] PCP - General Internal Medicine 12/13/15 Curriculum Consultant Relationship Specialty Start Date End Date Marilee Thakur MD [address] [facility] [place] [address] PCP - General Internal Medicine 12/13/15 Curriculum Consultant Relationship Specialty Start Date End Date Marilee Thakur MD [address] [facility] [place] [address] PCP - General Internal Medicine 12/13/15 Curriculum Consultant Relationship Specialty Start Date End Date Marilee Thakur MD [address] [facility] [place] [address] PCP - General Internal Medicine 12/13/15 Curriculum Consultant Relationship Specialty Start Date End Date Marilee Thakur MD [address] [facility] [place] [address] PCP - General Internal Medicine 12/13/15 Curriculum Consultant Relationship Specialty Start Date End Date Marilee Thakur MD [address] [place] [address] PCP - General Internal Medicine 12/13/15 Curriculum Consultant Relationship Specialty Start Date End Date Marilee Thakur MD [address] [place] [address] PCP - General Internal Medicine 12/13/15 Curriculum Consultant Relationship Specialty Start Date End Date Marilee Thakur MD [address] [place] [address] PCP - General Internal Medicine 12/13/15 Curriculum Consultant Relationship Specialty Start Date End Date Marilee Thakur MD [address] [place] [address] PCP - General Internal Medicine 12/13/15 Curriculum Consultant Relationship Specialty Start Date End Date Marilee Thakur MD [address] [place] [address] PCP - General Internal Medicine 12/13/15 Curriculum Consultant Relationship Specialty Start Date End Date Marilee Thakur MD [address] [place] [address] PCP - General Internal Medicine 12/13/15 Curriculum Consultant Relationship Specialty Start Date End Date Marilee Thakur MD [address] [place] [address] PCP - General Internal Medicine 12/13/15 Curriculum Consultant Relationship Specialty Start Date End Date Marilee Thakur MD [address] [place] [address] PCP - General Internal Medicine 12/13/15 Curriculum Consultant Relationship Specialty Start Date End Date Marilee Thakur MD [address] [facility] [place] [address] PCP - General Internal Medicine 12/13/15 Curriculum Consultant Relationship Specialty Start Date End Date Marilee Thakur MD [address] [facility] [place] [address] PCP - General Internal Medicine 12/13/15 Martell Garland, RN [address] [place] [address] Primary Care Wet Machine Tender 01/05/24 Curriculum Consultant Relationship Specialty Start Date End Date Marilee Thakur MD [address] [place] [address] PCP - General Internal Medicine 12/13/15 Martell Garland, RN [address] [place] [address] Primary Care Wet Machine Tender 01/05/24 Curriculum Consultant Relationship Specialty Start Date End Date Marilee Thakur MD [address] [place] [address] PCP - General Internal Medicine 12/13/15 Martell Garland, RN [address] [place] [address] Primary Care Wet Machine Tender 01/05/24 Curriculum Consultant Relationship Specialty Start Date End Date Marilee Thakur MD [address] [facility] [place] [address] PCP - General Internal Medicine 12/13/15 Martell Garland, RN [address] [place] [address] Primary Care Wet Machine Tender 01/05/24 Curriculum Consultant Relationship Specialty Start Date End Date Marilee Thakur MD [address] [place] [address] PCP - General 09/04/17 Isi Goodman MD [address] [place] [address] Consulting Physician Cardiology 01/20/24 Curriculum Consultant Relationship Specialty Start Date End Date Marilee Thakur MD [address] [place] [address] PCP - General Internal Medicine 12/13/15 Martell Garland, RN [address] [place] [address] Primary Care Wet Machine Tender 01/05/24 Curriculum Consultant Relationship Specialty Start Date End Date Marilee Thakur MD [address] [place] [address] PCP - General Internal Medicine 12/13/15 Martell Garland, RN [address] [place] [address] Primary Care Wet Machine Tender 01/05/24 Curriculum Consultant Relationship Specialty Start Date End Date Marilee Thakur MD [address] [place] [address] PCP - General Internal Medicine 12/13/15 Martell Garland, RN [address] [place] [address] Primary Care Wet Machine Tender 01/05/24 Curriculum Consultant Relationship Specialty Start Date End Date Marilee Thakur MD [address] [place] [address] PCP - General 09/04/17 Isi Goodman MD [address] [place] [address] Consulting Physician Cardiology 01/20/24 Curriculum Consultant Relationship Specialty Start Date End Date Marilee Thakur MD [address] [place] [address] PCP - General Internal Medicine 12/13/15 Bradley Flores, RODRÍGUEZ [address] [place] [address] Primary Care Wet Machine Tender 01/27/24 Curriculum Consultant Relationship Specialty Start Date End Date Marilee Thakur MD [address] [place] [address] PCP - General Internal Medicine 12/13/15 Bradley Flores, RODRÍGUEZ [address] [place] [address] Primary Care Wet Machine Tender 01/27/24 Curriculum Consultant Relationship Specialty Start Date End Date Marilee Thakur MD [address] [place] [address] PCP - General Internal Medicine 12/13/15 Bradley Flores, RN [address] [place] [address] Primary Care Wet Machine Tender 01/27/24 Curriculum Consultant Relationship Specialty Start Date End Date Marilee Thakur MD [address] [place] [address] PCP - General Internal Medicine 12/13/15 Bradley Flores, RODRÍGUEZ [address] [place] [address] Primary Care Wet Machine Tender 01/27/24 Curriculum Consultant Relationship Specialty Start Date End Date Marilee Thakur MD [address] [place] [address] PCP - General Internal Medicine 12/13/15 Bradley Flores, RODRÍGUEZ [address] [place] [address] Primary Care Wet Machine Tender 01/27/24 Curriculum Consultant Relationship Specialty Start Date End Date Marilee Thakur MD [address] [place] [address] PCP - General Internal Medicine 12/13/15 Bradley Flores, RODRÍGUEZ [address] [place] [address] Primary Care Wet Machine Tender 01/27/24 Aaliyah Sanchez PA-C [address] [place] [address] Electric Motor Control Assembler Family Medicine 02/15/24 Mika Kaplan APRN.MANAGER HOTEL [address] [place] [address] Electric Motor Control Assembler Internal Medicine 02/15/24 Maria Luisa Hayden PA-C [address] [place] [address] Electric Motor Control Assembler Family Medicine 02/15/24 Curriculum Consultant Relationship Specialty Start Date End Date Marilee Thakur MD [address] [place] [address] PCP - General Internal Medicine 12/13/15 Aaliyah Sanchez PA-C [address] [place] [address] Electric Motor Control Assembler Family Medicine 02/15/24 Mika Kaplan APRN.MANAGER HOTEL [address] [place] [address] Electric Motor Control Assembler Internal Medicine 02/15/24 Maria Luisa Hayden PA-C [address] [place] [address] Electric Motor Control Assembler Family Medicine 02/15/24 Bradley Flores RN [address] [place] [address] Primary Care Wet Machine Tender 02/20/24 Curriculum Consultant Relationship Specialty Start Date End Date Marilee Thakur MD [address] [place] [address] PCP - General Internal Medicine 12/13/15 Aaliyah Sanchez PA-C [address] [place] [address] Electric Motor Control Assembler Family Medicine 02/15/24 Mika Kaplan APRN.CNP [address] [place] [address] Electric Motor Control Assembler Internal Medicine 02/15/24 Maria Luisa Hayden PA-C [address] [place] [address] Electric Motor Control Assembler Family Medicine 02/15/24 Bradley Flores RN [address] [place] [address] Primary Care Wet Machine Tender 02/20/24 Curriculum Consultant Relationship Specialty Start Date End Date Marilee Thakur MD [address] [place] [address] PCP - General Internal Medicine 12/13/15 Aaliyah Sanchez PA-C [address] [place] [address] Electric Motor Control Assembler Family Medicine 02/15/24 Mika Kaplan APRN.MANAGER HOTEL [address] [place] [address] Electric Motor Control Assembler Internal Medicine 02/15/24 Maria Luisa Hayden PA-C [address] [place] [address] Electric Motor Control Assembler Family Medicine 02/15/24 Bradley Flores, RODRÍGUEZ [address] [place] [address] Primary Care Wet Machine Tender 02/20/24 Curriculum Consultant Relationship Specialty Start Date End Date Marilee Thakur MD [address] [place] [address] PCP - General Internal Medicine 12/13/15 Aaliyah Sanchez PA-C [address] [place] [address] Electric Motor Control Assembler Family Medicine 02/15/24 Mika Kaplan, MOISES.MANAGER HOTEL [address] [place] [address] Electric Motor Control Assembler Internal Medicine 02/15/24 Maria Luisa Hayden PA-C [address] [place] [address] Electric Motor Control Assembler Family Medicine 02/15/24 Bradley Flores RN [address] [place] [address] Primary Care Wet Machine Tender 02/27/24 02/27/24 Curriculum Consultant Relationship Specialty Start Date End Date Marilee Thakur MD [address] [place] [address] PCP - General Internal Medicine 12/13/15 Aaliyah Sanchez PA-C [address] [place] [address] Electric Motor Control Assembler Family [facility] 02/15/24 Mika Kaplan APRN.MANAGER HOTEL [address] [place] [address] Electric Motor Control Assembler Internal Medicine 02/15/24 Maria Luisa Hayden PA-C [address] [place] [address] Electric Motor Control Assembler Family [facility] 02/15/24 Curriculum Consultant Relationship Specialty Start Date End Date Marilee Thakur MD [address] [place] [address] PCP - General Internal Medicine 12/13/15 Aaliyah Sanchez PA-C [address] [place] [address] Electric Motor Control Assembler Family Medicine 02/15/24 Mika Kaplan APRN.MANAGER HOTEL [address] [place] [address] Electric Motor Control Assembler Internal Medicine 02/15/24 Maria Luisa Hayden PA-C [address] [place] [address] Electric Motor Control Assembler Family [facility] 02/15/24 Curriculum Consultant Relationship Specialty Start Date End Date Marilee Thakur MD [address] [place] [address] PCP - General Internal Medicine 12/13/15 Aaliyah Sanchez PA-C [address] [place], [place] [id number] [phone] Electric Motor Control Assembler Family Medicine 02/15/24 Mika Kaplan APRN.MANAGER HOTEL [address] [place] [address] Electric Motor Control Assembler Internal Medicine 02/15/24 Maria Luisa Hayden PA-C [address] [place] [address] Electric Motor Control Assembler Family [facility] 02/15/24 Curriculum Consultant Relationship Specialty Start Date End Date Marilee Thakur MD [address] [place] [address] PCP - General Internal Medicine 12/13/15 Aaliyah Sanchez PA-C [address] [place] [address] Electric Motor Control Assembler Family Medicine 02/15/24 Mika Kaplan APRN.MANAGER HOTEL [address] [place] [address] Electric Motor Control Assembler Internal Medicine 02/15/24 Maria Luisa Hayden PA-C [address] [place] [address] [facility] Curriculum Consultant Relationship Specialty Start Date End Date Marilee Thakur MD [address] [place] [address] PCP - General Internal Medicine 12/13/15 Aaliyah Sanchez PA-C [address] [place] [address] Electric Motor Control Assembler Family Medicine 02/15/24 Mika Kaplan APRN.MANAGER HOTEL [address] [facility] [place] [address] Electric Motor Control Assembler Internal Medicine 02/15/24 Maria Luisa Hayden PA-C [address] [facility] [place] [address] Electric Motor Control Assembler Family Medicine 02/15/24 Curriculum Consultant Relationship Specialty Start Date End Date Marilee Thakur MD [address] [facility] [place] [address] PCP - General Internal Medicine 12/13/15 Aaliyah Sanchez PA-C [address] [place] [address] Electric Motor Control Assembler Family Medicine 02/15/24 Mika Kaplan APRN.MANAGER HOTEL [address] [facility] [place] [address] Electric Motor Control Assembler Internal Medicine 02/15/24 Maria Luisa Hayden PA-C [address] [facility] [place] [address] Electric Motor Control Assembler Family [facility] 02/15/24 Curriculum Consultant Relationship Specialty Start Date End Date Marilee Thakur MD [address] [facility] [place] [address] PCP - General Internal Medicine 12/13/15 Aaliyah Sanchez PA-C [address] [place] [address] [id number] [phone] Electric Motor Control Assembler Family Medicine 02/15/24 Mika Kaplan APRN.MANAGER HOTEL [address] [facility] [place] [address] Electric Motor Control Assembler Internal Medicine 02/15/24 Maria Luisa Hayden PA-C [address] [place] [address] Electric Motor Control Assembler Family Medicine 02/15/24 Curriculum Consultant Relationship Specialty Start Date End Date Marilee Thakur MD [address] [place] [address] PCP - General Internal Medicine 12/13/15 Aaliyah Sanchez PA-C [address] [place] [address] [phone] Electric Motor Control Assembler Family Medicine 02/15/24 Mika Kaplan APRN.MANAGER HOTEL [address] [place] [address] Electric Motor Control Assembler Internal Medicine 02/15/24 Maria Luisa Hayden PA-C [address] [place] [address] Electric Motor Control Assembler Family [facility] 02/15/24 Curriculum Consultant Relationship Specialty Start Date End Date Marilee Thakur MD [address] [place] [address] PCP - General Internal Medicine 12/13/15 Aaliyah Sanchez PA-C [address] [place] [address] Electric Motor Control Assembler Family Medicine 02/15/24 Mika Kaplan APRN.MANAGER HOTEL [address] [place] [address] Electric Motor Control Assembler Internal Medicine 02/15/24 Maria Luisa Hayden PA-C [address] [place] [address] Electric Motor Control Assembler [facility] 02/15/24 Curriculum Consultant Relationship Specialty Start Date End Date Marilee Thakur MD [address] [place], [place] 564001 PCP - General Internal Medicine 12/13/15 Aaliyah Sanchez PA-C [address] [place] [address] Electric Motor Control Assembler Family [facility] 02/15/24 Mika Kaplan APRN.[facility] [address] [place] [address] Electric Motor Control Assembler Internal Medicine 02/15/24 Maria Luisa Hayden PA-C [address] [place] [address] [facility] 02/15/24 Curriculum Consultant Relationship Specialty Start Date End Date Marilee Thakur MD [address] [place] [address] PCP - General 09/04/17 Isi Goodman MD [address] [address] Consulting Physician Cardiology 01/20/24 Curriculum Consultant Relationship Specialty Start Date End Date Marilee Thakur MD [address] [place] [address] PCP - General Internal Medicine 12/13/15 Aaliyah Sanchez PA-C [address] [place] [address] Electric Motor Control Assembler Family Medicine 02/15/24 Mika Kaplan APRN.MANAGER HOTEL [address] [place] [address] Electric Motor Control Assembler Internal Medicine 02/15/24 Maria Luisa Hayden PA-C [address] [place] [address] Electric Motor Control Assembler Family Medicine 02/15/24 Curriculum Consultant Relationship Specialty Start Date End Date Marilee Thakur MD [address] [place], [place] 364891 PCP - General Internal Medicine 12/13/15 Aaliyah Sanchez PA-C [address] [place] [address] Electric Motor Control Assembler Family Medicine 02/15/24 Mika Kaplan APRN.MANAGER HOTEL [address] [place] [address] Electric Motor Control Assembler Internal Medicine 02/15/24 Maria Luisa Hayden PA-C [address] [place] [address] Electric Motor Control Assembler Family [facility] 02/15/24 Curriculum Consultant Relationship Specialty Start Date End Date Marilee Thakur MD [address] [place], [place] 701181 PCP - General 09/04/17 Isi Goodman MD [address] [address] Consulting Physician Cardiology 01/20/24 Curriculum Consultant Relationship Specialty Start Date End Date Marilee Thakur MD [address] [place] [address] PCP - General Internal Medicine 12/13/15 Aaliyah Sanchez PA-C [address] [place] [address] Electric Motor Control Assembler Family Medicine 02/15/24 Mika Kaplan APRN.MANAGER HOTEL [address] [place] [address] Electric Motor Control Assembler Internal Medicine 02/15/24 Maria Luisa Hayden PA-C [address] [place] [address] Electric Motor Control Assembler Family Medicine 02/15/24 Curriculum Consultant Relationship Specialty Start Date End Date Marilee Thakur MD [address] [place] [address] PCP - General Internal Medicine 12/13/15 Aaliyah Sanchez PA-C [address] [place] [address] Electric Motor Control Assembler Family Medicine 02/15/24 Mika Kaplan, WAXER TENDER.MANAGER HOTEL [address] [place] [address] Electric Motor Control Assembler Internal Medicine 02/15/24 Maria Luisa Hayden PA-C [address] [place] [address] Electric Motor Control Assembler Family Medicine 02/15/24 Curriculum Consultant Relationship Specialty Start Date End Date Marilee Thakur MD [address] [place], [place] 814801 PCP - General 09/04/17 Isi Goodman MD [address] [place] [address] Consulting Physician Cardiology 01/20/24 Curriculum Consultant Relationship Specialty Start Date End Date Marilee Thakur MD [address] [place], [place] 741201 PCP - General Internal Medicine 12/13/15 Mika Kaplan APRN.MANAGER HOTEL [address] [place] [address] Electric Motor Control Assembler Internal Medicine 02/15/24 Curriculum Consultant Relationship Specialty Start Date End Date Marilee Thakur MD [address] [place], [place] 022061 PCP - General Internal Medicine 12/13/15 Aaliyah Sanchez PA-C [address] [place] [address] Electric Motor Control Assembler Family Medicine 02/15/24 05/30/24 Mika Kaplan APRN.MANAGER HOTEL [address] [place] [address] Electric Motor Control Assembler Internal Medicine 02/15/24 Maria Luisa Hayden PA-C [address] [place] [address] Electric Motor Control Assembler Family Medicine 02/15/24 05/30/24 Curriculum Consultant Relationship Specialty Start Date End Date Marilee Thakur MD [address] [facility] [address] PCP - General Internal Medicine 12/13/15 Mika Kaplan APRN.OBED [address] [place] [address] Electric Motor Control Assembler Internal Medicine 02/15/24 Goals (unrecognized section and content) Goals may be documented in a n alternate sectionGoals may be documented in an alternate section No data available for this section No data available for this section No data available for this section No data available for this section FOR RECORDS PERTAINING TO PATIENTS WHO ARE [...] BE BASED ON THE PRIMARY CLINICAL RECORDS. [email or web address] provides no warranty or guarantee of the accuracy or completeness of information in this document.
--- OUTSIDE RECORDS SUMMARY | 2024-08-16 04:43 | XMS RPT_ITS | CCD ---
Author Organization [facility] Care Team Providers Care Aboriginal Ceremonial Celebrant Name Role Phone [facility] Unavailable Unavailable RICKI HIRSCH Unavailable Unavailable Smita Salgado Unavailable Unavailable Marilee Thakur Unavailable Unavailable Lexus Jackson Unavailable Unavailable Marilee Thakur Unavailable Marilee Thakur MD Primary Care Provider Marilee Thakur MD Primary Care Provider Marilee Thakur MD Primary Care Provider Dr. Marilee Thakur Primary Care Provider Dr. Marilee Thakur Referring Provider Po SESSIONS CLERK, SESSIONS CLERK-C Cecilia Attending Provider Dr. Marilee Thakur Primary Care Provider Dr. Marilee Thakur Referring Provider Po SESSIONS CLERK, SESSIONS CLERK-C Cecilia Attending Provider Marilee Thakur MD Primary Care Provider DR MARIELE TAHKUR MD Primary Care Physician Larry ARREGUIN, Martell Unavailable [phone] Marilee Thakur MD Primary Care Provider Isi Goodman MD Unavailable Anna ARREGUIN, Bradley Plascencia Unavailable [phone] Daniel JAMES, Aaliyah L Unavailable [phone] Older CHURCH HISTORY PROFESSOR.CATERERS HELPER, Mika Unavailable Catracho JAMES, Maria Luisa Unavailable Anna ARREGUIN, Bradley Plascencia Unavailable Anna RN, Bradley Thais Unavailable [phone] GANTA, MARILEE LUDIN Primary Care Unavailable GANTA, MARILEE LUDIN Primary Care Unavailable Maxine FERNANDES, Isi Russell Unavailable KATALINA FERNANDES, JAMILA Attending Unavailable BLAZE FERNANDES, [...] FERNANDES, DR SALAS Consulting Unavailab Rosangela FERNANDES, RANI L Consulting Unavailable KAYLAN LUGO MD Consulting [...] Unavailable Ganta, Marilee Primary Care Unavailable Carroll, Plains Consulting Unavailable Collier, Cindy Consulting Unavailable Jarrod, [...] Magnolia Admitting Unavailable Subhash, Magnolia Attending Unavailable [facility] Primary Care Unavailable Leon Arias Consulting Unavailable Magnolia Cullen Consulting Unavailable [facility] Unavailable Lori Lowery Attending Unavailable [facility] Primary Care Unavailable Tori Rossi Attending Unavailable Gudla OLS, Tia Attending Unavailable [facility] Primary Care Unavailable Gudla OLS, Tia Attending Unavailable [facility] Primary Care Unavailable Gudla OLS, Tia Referring Unavailable Gudla OLS, Tia Attending Unavailable [facility] Primary Care Unavailable Gudla OLS, Tia Attending Unavailable [facility] Primary Care Unavailable Gudla OLS, Tia Attending Unavailable [facility] Primary Care Unavailable Gudla OLS, Tia Attending Unavailable [facility] Primary Care Unavailable [facility] Primary Care Unavailable Lori Lowery Attending Unavailable [facility] Primary Care Unavailable Corrine Figueroa Attending Unavailable [facility] Referring Unavailable Hiral Hansen Attending Unavailable [facility] Primary Care Unavailable [facility] Referring Unavailable Marbin Lizama Attending Unavailable White, Cinthia L Admitting Unavailable White, Cinthia L Consulting Unavailable [facility] Primary Care Unavailable Cindy Collier Referring Unavailable Fran Hodges Attending Unavailable [facility] Primary Care Unavailable Marbin Lizama Attending Unavailable White, Cinthia L Admitting Unavailable White, Cinthia L Consulting Unavailable [facility] Primary Care Unavailable Marbin Lizama Consulting Unavailable Nando Cindy Admitting Unavailable Cindy Collier Attending Unavailable [facility] Primary Care Unavailable Carroll, Plains Consulting Unavailable Nando Cindy Consulting Unavailable White, Cinthia L Attending Unavailable [facility] Marilee Primary Care Unavailable [facility] Phoenixta, Marilee Primary Care Unavailable Esther Bond Attending [...] Luz Consulting Unavailable Aljundi, Lamia Consulting Unavailable Washintgon, Dave Consulting Unavailable Irukulla, Carter Consulting Unavailable Jeff, Brian Consulting Unavailable Farhana Max Consulting Unavailable , Merrill Consulting Unavailable Sagar Garner Consulting Unavailable Manuel Garay Consulting Unavailable Mostheidy, Marbin Consulting Unavailable Alda, Marbin Admitting Unavailable Manuel Garay Attending Unavailable [facility] Unavailable Manuel Garay Attending Unavailable Jarrdo, Manuel Consulting Unavailable Marbin Lizama Attending Unavailable White, Cinthia L Attending Unavailable White, Cinthia L Admitting Unavailable White, Cinthia L Consulting Unavailable [facility] Primary Care Unavailable Jarrod, Manuel Consulting Unavailable Cindy Collier Admitting Unavailable Manuel Garay Attending Unavailable [facility] Primary Care Unavailable Fran Hodges Consulting Unavailable Cindy Collier Consulting Unavailable Jarrod, Manuel Consulting Unavailable Fran Hodges Attending Unavailable Magnolia Cullen Consulting Unavailable Leon Arias Attending Unavailable [facility] Primary Care Unavailable Manuel Garay Attending [...] Marbin Consulting Unavailable Alda, Marbin Admitting Unavailable [facility], Marilee Primary Care Unavailable Manuel Garay Attending Unavailable Hiral Hansen Referring Unavailable [facility], Marilee Primary Care Unavailable Hiral Hansen Attending Unavailable Hiral Hansen Attending Unavailable [facility], Marilee Primary Care Unavailable Ganta, Marilee Referring Unavailable Hiral Hansen Attending Unavailable [facility] Phoenixta, Marilee Primary Care Unavailable Ganta, Marilee Referring Unavailable Leon Arias Consulting Unavailable Leon Arias Admitting Unavailable Magnolia Cullen Attending Unavailable [facility] Primary Care Unavailable Magnolia Cullen Consulting Unavailable Magnolia Cullen Attending Unavailable [facility] Primary Care Unavailable Fran Hodges Attending Unavailable Tia Clark Attending Unavailable [facility] Care Unavailable Allergies Allergy Classification Reported Allergen(s) Allergy Type Date of Onset Reaction(s) Facility Anti-Epileptic Agents (1 source) Phenytoin Drug Allergy 6 [facility] (20 sources) phenytoin; Translations: [PHENYTOIN SODIUM EXTENDED] Drug Allergy 6 Unknown [facility] Repository (1 source) OTHER; Translations: [OTHER] Propensity to adverse reactions (disorder) [facility] (20 sources) apis mellifera venom; Translations: [BEE STING] allergy to substance 3 Anaphylaxis [facility] Work Phone: (20 sources) BEES,WASPS [Other] Propensity to adverse reactions 6 Swelling [facility] Work Phone: (20 sources) mosquitoes [Other] Propensity to adverse reactions 6 [facility] (3 sources) Phenytoin; Translations: [phenytoin sodium] Drug Allergy 3 Unknown [facility] (3 sources) insect venom; Translations: [insect venom] Allergy to substance 3 Itching [facility] (2 sources) venom-honey bee Allergy to substance 3 Unknown [facility] (4 sources) Bee/Wasp/Ant venom Allergy to substance [facility] (12 sources) Phenytoin; Translations: [phenytoin] Drug Allergy 6 Unknown [facility] (4 sources) misc non-codified allergy Allergy to substance [facility] (20 sources) Bumetanide; Translations: [BUMETANIDE] Drug Allergy 5 Diarrhea, Other: See Comments [facility] (1 source) venom-honey bee Drug allergy (disorder) 5 [facility] Repository Medications Current Medications Medication Drug Class(es) [...] as needed for pain (For knee pain). [id number] 200 actuat albuterol 0.09 mg/actuat metered dose [...] tablet by mouth twice daily at mealtime wwgjqxz-xdrxphhlk-boqdivj D3 (OYSTER SHELL CALCIUM-VITAMIN D) 500 mg-5 [...] by mouth once daily fish oil concentrate (Baring-3) 120-180 mg capsule Take 1 capsule (1 g) by mouth once daily. 06/01/2015 Active Start: 06-01-2015 take 1 capsule by mo [facility] once daily Fish Oil 1000 MG Oral Capsule TAKE 1 CAPSULE DAILY. Quantity: 0 Refills: 0 Ordered: 01-Jun-2015 DO Start : 01-Jun-2015 Active docusate sodium 50 mg / sennosides, shelter 8.6 mg oral tablet (1 source) Start: [...] 02, 2023 3:25pm omega-3 acid ethyl esters (shelter) 1000 mg oral capsule (2 sources) Start: 05-13-2024 omega-3 polyun saturated fatty acids ethyl esters 1000 mg oral capsule Dose : 2,000 mg = 2 cap(s), Oral, qDay, # 120 cap(s), 0 Refill(s) Start Date: 05/13/24 Status: Ordered Quantity: 120.0 Unit: cap(s) Repeat number: 1 Start: 06-01-2015 take 1 capsule by [facility] once daily Fish Oil 1000 MG Oral Capsule TAKE 1 CAPSULE DAILY. Refills: 0 Start : 01-Jun-2015 Active Baring-3 Fatty Acids-Fish Oil (2 sources) Start: 10-26-2013 Baring-3 Fatty Acids-Fish Oil Active 1 EACH PO DAILY October 26, 2013 12:00am Ffpdt-9-BJW-EPA-Fish Oil 1,000 mg (120 mg-180 mg) cap (20 sources) Start: 08-22-2023 take 1 capsule by mouth once daily Zfngb-3-UTF-EPA-Fish Oil 1,000 mg (120 mg-180 mg) cap Take 1 capsule by mouth once daily. 31 capsule 10 08/22/2023 Active Start: 08-08-2022 End: 08-22-2023 take 1 capsule by mouth once daily Hkypm-6-XGM-EPA-Fish Oil 1,000 mg (120 mg-180 mg) cap TAKE ONE CAPSULE BY MOUTH DAILY 31 capsule 10 08/08/2022 08/22/2023 Discontinued Start: 08-08-2022 take 1 capsule by [facility] once daily Azlch-3-YBC-EPA-Fish Oil 1,000 mg (120 mg-180 mg) cap [...] 10 mL injection (DEFINITY) polyethylene glycol 3350 05101 mg powder for oral solution (1 source) [...] hospital at bedtime as needed for cough. Certagen [...] mg by mouth once daily. 08/22/2023 Active Baring-3 Fatty Acids-Fish Oil (2 sources) Start: 12-09-2012 End: 02-08-2013 Baring-3 Fatty Acids-Fish Oil Discontinued 1 EACH PO DAILY December 09, 2012 12:00am February 08, 2013 9:28am ergocalciferol 1.25 mg oral capsule (16 sources) Provitamin D2 Compound Start: 09-30-2014 End: 06-03-2018 take 41384 [IU] by mouth once Ergocalciferol (Vitamin D2) Discontinued 18259 UNIT PO MO September 30, 2014 12:00am June 03, 2018 3:29pm End: 05-04-2024 ergocalciferol (Vitamin D-2) 1.25 MG (57748 UT) capsule Take by mouth. 05/04/2024 Discontinued (Med List Cleanup) take 1 capsule by mouth once Vit walden D (Ergocalciferol) 1.25 MG (27501 UT) Oral Capsule Quantity: 0 Refills: 0 Ordered: 06-Dec-2016 DO Active Vitamin D (Ergoc alciferol) 1.25 MG (89649 UT) Oral Capsule Refills: 0 Active Fish Oil-Baring-3 Fatty Acids (FISH OIL) 340-1,000 mg cap (7 sources) Start: 08-21-2020 End: 08-15-2021 take 1 capsule by mouth once daily Fish Oil-Baring-3 Fatty Acids (FISH OIL) 340-1,000 mg cap Take 1 capsule by mouth once daily. 31 capsule 11 08/21/2020 08/15/2021 Discontinued Start: 08-21-2020 take 1 capsule by mo uth once daily Fish Oil-Baring-3 Fatty Acids (FISH OIL) 340-1,000 mg cap [...] 03-12-19 Leg Brace (TRUE CMFT KNEE COMPRESSION) [facility] Indications: Lymphedema 1 Each once daily. 2 Each 1 11/18/2023 03/12/2024 Discontinued Start: 11-18-2023 Leg Brace (PHONG E CMFT KNEE COMPRESSION) [facility] Indications: Lymphedema 1 Each once daily. 2 [...] Problem Lis t Migration; 2012-10-30; Moved to [facility] Feb 05 2013 9:10PM; Other connective [...] (6 sources) Prader-Willi syndrome; 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 ([facility])] Onset: 1 Unclassified (1 source) Obesity, class [...] 12-13-2013 Episodic Other aftercare (1 source) Other halfway (current) drug therapy; Translations: [Medication management] Onset: [...] )on 08-09-2024 BUN/CRE 29.1 RATIO High 10-20 [facility] Comment on above: Order Comment: 202 Performed By: #### L 500.2500 ####[facility] [address] [place], [address] Calcium [Mass/Vol] 9.0 mg/dL Normal 7.6-11.0 [facility] Comment on above: Order Comment: 202 Performed By: #### L 500.2500 ####[facility] [address] [place], [address] Chloride [Moles/Vol] 94 mmol/L Low 98-108 [facility] Comment on above: Order Comment: 202 Performed By: #### L 500.2500 ####[facility] [address] [place], [address] CO2 [Moles/Vol] 35.4 mmol/L High 21.0-32.0 [facility] Comment on above: Order Comment: 202 Performed By: #### L 500.2500 ####[facility] [address] [place], [address] Creatinine [Mass/Vol] 0.46 mg/dL Low 0.70-1.20 [facility] Comment on above: Order Comment: 202 Performed By: #### L 500.2500 ####[facility] [address] [place], [address] GAP 9 Normal 5-15 [facility] Comment on above: Order Comment: 202 Performed By: #### L 500.2500 ####[facility] [address] [place], [address] GFR/1.73 sq M.predicted among non-blacks MDRD (S/P/Bld) [Vol rate/Area] 122 mL/min/{1.73_m2} Normal >60 [facility] Comment on above: Order Comment: 202 Result Comment: mL/m in/1.73m2 CKD-EPI Creatinine Equation (2020) Performed By: #### L 500.2500 ####[facility] [address] [place], [address] Glucose [Mass/Vol] 74 mg/dL Normal 70-99 [facility] Comment on above: Order Comment: 202 Performed By: #### L 500.2500 ####[facility] [address] [place], [address] Potassium [Moles/Vol] 4.2 mmol/L Normal 3.3-5.1 [facility] Comment on above: Order Comment: 202 Performed By: #### L 500.2500 ####[facility] [address] [place], [address] Sodium [Moles/Vol] 138 mmol/L Normal 133-145 [facility] Comment on above: Order Comment: 202 Performed By: #### L 500.2500 ####[facility] [address] [place], [address] Urea nitrogen [Mass/Vol] 14 mg/dL Normal 4-19 [facility] Comment on above: Order Comment: 202 Performed By: #### L 500.2500 ####[facility] [address] [place], [address] Basic Metabolic Profile (BMP )on 08-03-2024 BUN/CRE 37.4 RATIO High 10-20 [facility] Comment on above: Order Comment: 202 Performed By: #### L 500.2500 ####[facility] [address] [place], [address] Calcium [Mass/Vol] 8.8 mg/dL Normal 7.6-11.0 [facility] Comment on above: Order Comment: 202 Performed By: #### L 500.2500 ####[facility] [address] [place], [address] Chloride [Moles/Vol] 96 mmol/L Low 98-108 [facility] Comment on above: Order Comment: 202 Performed By: #### L 500.2500 ####[facility] [address] [place], [address] CO2 [Moles/Vol] 35.8 mmol/L High 21.0-32.0 [facility] Comment on above: Order Comment: 202 Performed By: #### L 500.2500 ####[facility] [address] [place], [address] Creatinine [Mass/Vol] 0.43 mg/dL Low 0.70-1.20 [facility] Comment on above: Order Comment: 202 Performed By: #### L 500.2500 ####[facility] [address] [place], [address] GAP 8 Normal 5-15 [facility] Comment on above: Order Comment: 202 Performed By: #### L 500.2500 ####[facility] [address] [place], [address] GFR/1.73 sq M.predicted among non-blacks MDRD (S/P/Bld) [Vol rate/Area] 124 mL/min/{1.73_m2} Normal >60 [facility] Comment on above: Order Comment: 202 Result Comment: mL/m in/1.73m2 CKD-EPI Creatinine Equation (2020) Performed By: #### L 500.2500 ####[facility] [address] [place], [address] Glucose [Mass/Vol] 85 mg/dL Normal 70-99 [facility] Comment on above: Order Comment: 202 Performed By: #### L 500.2500 ####[facility] [address] [place], [address] Potassium [Moles/Vol] 4.3 mmol/L Normal 3.3-5.1 [facility] Comment on above: Order Comment: 202 Performed By: #### L 500.2500 ####[facility] [address] [place], [address] Sodium [Moles/Vol] 140 mmol/L Normal 133-145 [facility] Comment on above: Order Comment: 202 Performed By: #### L 500.2500 ####[facility] [address] [place], [address] Urea nitrogen [Mass/Vol] 16 mg/dL Normal 4-19 [facility] Comment on above: Order Comment: 202 Performed By: #### L 500.2500 ####[facility] [address] [place], [address] CBC-Complete Blood Cnt No Di ffon 07-26-2024 Erythrocyte distribution width (RBC) [Ratio] 14.0 % Normal 11.6-14.6 [facility] Comment on above: Order Comment: 202 Performed By: #### L 501.5200, L500.4050, L100.0500 ####[facility] [address] [place], [address] Hematocrit (Bld) [Volume fraction] 32.7 % Low 37-47 [facility] Comment on above: Order Comment: 202 Performed By: #### L 501.5200, L500.4050, L100.0500 ####[facility] [address] [place], [address] Hemoglobin (Bld) [Mass/Vol] 10.2 g/dL Low 12.0-15.0 [facility] Comment on above: Order Comment: 202 Performed By: #### L 501.5200, L500.4050, L100.0500 ####[facility] [address] [place], [address] MCH (RBC) [Entitic mass] 31.6 pg Normal 27.0-32.0 [facility] Comment on above: Order Comment: 202 Performed By: #### L 501.5200, L500.4050, L100.0500 ####[facility] [address] [place], [address] MCHC (RBC) [Mass/Vol] 31.2 g/dL Low 32-36 [facility] Comment on above: Order Comment: 202 Performed By: #### L 501.5200, L500.4050, L100.0500 ####[facility] [address] [place], [address] MCV (RBC) [Entitic vol] 101.2 fL High 81-99 [facility] Comment on above: Order Comment: 202 Performed By: #### L 501.5200, L500.4050, L100.0500 ####[facility] [address] [place], [address] Platelet mean volume (Bld) [Entitic vol] 10.9 fL Normal 6.2-12.0 [facility] Comment on above: Order Comment: 202 Performed By: #### L 501.5200, L500.4050, L100.0500 ####[facility] [address] [place], [address] Platelets (Bld) [#/Vol] 217 10*3/uL Normal 150-450 [facility] Comment on above: Order Comment: 202 Performed By: #### L 501.5200, L500.4050, L100.0500 ####[facility] [address] [place], [address] RBC (Bld) [#/Vol] 3.23 10*6/uL Low 4.2-5.4 [facility] Comment on above: Order Comment: 202 Performed By: #### L 501.5200, L500.4050, L100.0500 ####[facility] [address] [place], [address] RDW SD 52.0 fl High 35.1-43.9 [facility] Comment on above: Order Comment: 202 Performed By: #### L 501.5200, L500.4050, L100.0500 ####[facility] [address] [place], [address] WBC (Bld) [#/Vol] 9.8 10*3/uL Normal 4.4-11.0 [facility] Comment on above: Order Comment: 202 Performed By: #### L 501.5200, L500.4050, L100.0500 ####[facility] [address] [place], [address] Comprehensive Metabolic Prof [facility] 07-26-2024 Albumin [Mass/Vol] 3.4 g/dL Low 3.5-5.0 [facility] Comment on above: Order Comment: 202 Performed By: #### L 501.5200, L500.4050, L100.0500 ####[facility] [address] [place], [address] Albumin/Globulin [Mass ratio] 1.1 {ratio} Normal 0.9-2.4 [facility] Comment on above: Order Comment: 202 Performed By: #### L 501.5200, L500.4050, L100.0500 ####[facility] [address] [place], [address] ALK PHOS 125 U/L High 35-104 [facility] Comment on above: Order Comment: 202 Performed By: #### L 501.5200, L500.4050, L100.0500 ####[facility] [address] [place], [address] ALT [Catalytic activity/Vol] 21 U/L Normal <=34 [facility] Comment on above: Order Comment: 202 Performed By: #### L 501.5200, L500.4050, L100.0500 ####[facility] [address] [place], [address] AST [Catalytic activity/Vol] 18 U/L Normal <=31 [facility] Comment on above: Order Comment: 202 Performed By: #### L 501.5200, L500.4050, L100.0500 ####[facility] [address] [place], [address] BUN/CRE 34.5 RATIO High 10-20 [facility] Comment on above: Order Comment: 202 Performed By: #### L 501.5200, L500.4050, L100.0500 ####[facility] [address] [place], [address] Calcium [Mass/Vol] 9.0 mg/dL Normal 7.6-11.0 [facility] Comment on above: Order Comment: 202 Performed By: #### L 501.5200, L500.4050, L100.0500 ####[facility] [address] [place], [address] Chloride [Moles/Vol] 100 mmol/L Normal 98-108 [facility] Comment on above: Order Comment: 202 Performed By: #### L 501.5200, L500.4050, L100.0500 ####[facility] [address] [place], [address] CO2 [Moles/Vol] 32.4 mmol/L High 21.0-32.0 [facility] Comment on above: Order Comment: 202 Performed By: #### L 501.5200, L500.4050, L100.0500 ####[facility] [address] [place], [address] Creatinine [Mass/Vol] 0.45 mg/dL Low 0.70-1.20 [facility] Comment on above: Order Comment: 202 Performed By: #### L 501.5200, L500.4050, L100.0500 ####[facility] [address] [place], [address] GAP 8 Normal 5-15 [facility] Comment on above: Order Comment: 202 Performed By: #### L 501.5200, L500.4050, L100.0500 ####[facility] [address] [place], [address] GFR/1.73 sq M.predicted among non-blacks MDRD (S/P/Bld) [Vol rate/Area] 123 mL/min/{1.73_m2} Normal >60 [facility] Comment on above: Order Comment: 202 Result Comment: mL/m in/1.73m2 CKD-EPI Creatinine Equation (2020) Performed By: #### L 501.5200, L500.4050, L100.0500 ####[facility] [address] [place], [address] Globulin (S) [Mass/Vol] 3.1 g/dL Normal 2.2-4.2 [facility] Comment on above: Order Comment: 202 Performed By: #### L 501.5200, L500.4050, L100.0500 ####[facility] [address] [place], [address] Glucose [Mass/Vol] 99 mg/dL Normal 70-99 [facility] Comment on above: Order Comment: 202 Performed By: #### L 501.5200, L500.4050, L100.0500 ####[facility] [address] [place], [address] Potassium [Moles/Vol] 4.3 mmol/L Normal 3.3-5.1 [facility] Comment on above: Order Comment: 202 Performed By: #### L 501.5200, L500.4050, L100.0500 ####[facility] [address] [place], [address] Sodium [Moles/Vol] 141 mmol/L Normal 133-145 [facility] Comment on above: Order Comment: 202 Performed By: #### L 501.5200, L500.4050, L100.0500 ####[facility] [address] [place], [address] T BILI < 0.15 Normal 0.00-1.30 [facility] Comment on above: Order Comment: 202 Performed By: #### L 501.5200, L500.4050, L100.0500 ####[facility] [address] [place], [address] T PROT 6.5 g/dL Normal 5.9-8.4 [facility] Comment on above: Order Comment: 202 Performed By: #### L 501.5200, L500.4050, L100.0500 ####[facility] [address] [place], [address] Urea nitrogen [Mass/Vol] 15 mg/dL Normal 4-19 [facility] Comment on above: Order Comment: 202 Performed By: #### L 501.5200, L500.4050, L100.0500 ####[facility] [address] [place], [address] Magnesiumon 07-26-2024 Magnesium [Mass/Vol] 2.2 mg/dL Normal 1.5-2.2 [facility] Comment on above: Order Comment: 202 Performed By: #### L 501.5200, L500.4050, L100.0500 ####[facility] [address] [place], [address] Basic Metabolic Profile (BMP )on 07-19-2024 BUN Normal 4-19 [facility] Comment on above: Order Comment: . Result Comment: UTO X1 Performed By: #### L 500.2500 ####[facility] [address] [place], [address] BUN/CRE Normal 10-20 [facility] Comment on above: Order Comment: . Result Comment: UTO X1 Performed By: #### L 500.2500 ####[facility] [address] [place], [address] Calcium Normal 7.6-11.0 [facility] Comment on above: Order Comment: . Result Comment: UTO X1 Performed By: #### L 500.2500 ####[facility] [address] [place], [address] CL Normal 98-108 [facility] Comment on above: Order Comment: Result Comment: UTO X1 Performed By: #### L 500.2500 ####[facility] [address] [place], [address] CO2 Normal 21.0-32.0 [facility] Comment on above: Order Comment: . Result Comment: UTO X1 Performed By: #### L 500.2500 ####[facility] [address] [place], [address] CREAT,SERUM Normal 0.70-1.20 [facility] Comment on above: Order Comment: Result Comment: UTO X1 Performed By: #### L 500.2500 ####[facility] [address] [place], [address] eGFR Normal >60 [facility] Comment on above: Order Comment: Result Comment: UTO X1 Performed By: #### L 500.2500 ####[facility] [address] [place], [address] GAP Normal 5-15 [facility] Comment on above: Order Comment: Result Comment: UTO X1 Performed By: #### L 500.2500 ####[facility] [address] [place], [address] GLU Normal 70-99 [facility] Comment on above: Order Comment: Result Comment: UTO X1 Performed By: #### L 500.2500 ####[facility] [address] [place], [address] Potassium Normal 3.3-5.1 [facility] Comment on above: Order Comment: Result Comment: UTO X1 Performed By: #### L 500.2500 ####[facility] [address] [place], [address] Basic Metabolic Profile (BMP) Normal 133-145 [facility] Comment on above: Order Comment: Result Comment: UTO X1 Performed By: #### L 500.2500 ####[facility] [address] [place], [address] Basic Metabolic Profile (BMP )on 07-12-2024 BUN/CRE 38.0 RATIO High 10-20 [facility] Comment on above: Order Comment: Performed By: #### L 500.2500 ####[facility] [address] [place], [address] Calcium [Mass/Vol] 9.5 mg/dL Normal 7.6-11.0 [facility] Comment on above: Order Comment: Performed By: #### L 500.2500 ####[facility] [address] [place], [address] Chloride [Moles/Vol] 98 mmol/L Normal 98-108 [facility] Comment on above: Order Comment: Performed By: #### L 500.2500 ####[facility] [address] [place], [address] CO2 [Moles/Vol] 29.5 mmol/L Normal 21.0-32.0 [facility] Comment on above: Order Comment: . Performed By: #### L 500.2500 ####[facility] [address] [place], [address] Creatinine [Mass/Vol] 0.41 mg/dL Low 0.70-1.20 [facility] Comment on above: Order Comment: Performed By: #### L 500.2500 ####[facility] [address] [place], [address] GAP 10 Normal 5-15 [facility] Comment on above: Order Comment: Performed By: #### L 500.2500 ####[facility] [address] [place], [address] GFR/1.73 sq M.predicted among non-blacks MDRD (S/P/Bld) [Vol rate/Area] 126 mL/min/{1.73_m2} Normal >60 [facility] Comment on above: Order Comment: Result Comment: mL/m in/1.73m2 CKD-EPI Creatinine Equation (2020) Performed By: #### L 500.2500 ####[facility] [address] [place], [address] Glucose [Mass/Vol] 79 mg/dL Normal 70-99 [facility] Comment on above: Order Comment: Performed By: #### L 500.2500 ####[facility] [address] [place], [address] Potassium [Moles/Vol] 4.0 mmol/L Normal 3.3-5.1 [facility] Comment on above: Order Comment: Performed By: #### L 500.2500 ####[facility] [address] [place], [address] Sodium [Moles/Vol] 137 mmol/L Normal 133-145 [facility] Comment on above: Order Comment: . Performed By: #### L 500.2500 ####[facility] [address] [place], [address] Urea nitrogen [Mass/Vol] 16 mg/dL Normal 4-19 [facility] Comment on above: Order Comment: Performed By: #### L 500.2500 ####[facility] [address] [place], [address] CBC W/Diff, Automatedon 06-09 Absolute Lymph 1.71 X10 3/uL Normal 0.83-4.51 [facility] Comment on above: Performed By: #### L 100.0100, L501.5200, L500.4050 ####[facility] [address] [place], [address] Absolute Neut 6.9 X10 3/uL Normal 2.0-7.7 [facility] Comment on above: Performed By: #### L 100.0100, L501.5200, L500.4050 ####[facility] [address] [place], [address] Basophils/100 WBC (Bld) 0.3 % Normal 0-1 [facility] Comment on above: Performed By: #### L 100.0100, L501.5200, L500.4050 ####[facility] [address] [place], [address] Eosinophils/100 WBC (Bld) 3.3 % Normal 0-5 [facility] Comment on above: Performed By: #### L 100.0100, L501.5200, L500.4050 ####[facility] [address] [place], [address] Erythrocyte distribution width (RBC) [Ratio] 13.9 % Normal 11.6-14.6 [facility] Comment on above: Performed By: #### L 100.0100, L501.5200, L500.4050 ####[facility] [address] [place], [address] Hematocrit (Bld) [Volume fraction] 31.8 % Low 37-47 [facility] Comment on above: Performed By: #### L 100.0100, L501.5200, L500.4050 ####[facility] [address] [place], [address] Hemoglobin (Bld) [Mass/Vol] 10.2 g/dL Low 12.0-15.0 [facility] Comment on above: Performed By: #### L 100.0100, L501.5200, L500.4050 ####[facility] [address] [place], [address] IG% 0.800 Normal 0.0-0.9 [facility] Comment on above: Result Comment: IG% - Immature Granulocytes (promyelocytes, myelocytes andmetamyelocytes) > 1% indicates that a LEFT SHIFT is Present. Performed By: #### L 100.0100, L501.5200, L500.4050 ####[facility] [address] [place], [address] Lymphocytes/100 WBC (Bld) 17.1 % Low 19-41 [facility] Comment on above: Performed By: #### L 100.0100, L501.5200, L500.4050 ####[facility] [address] [place], [address] MCH (RBC) [Entitic mass] 31.5 pg Normal 27.0-32.0 [facility] Comment on above: Performed By: #### L 100.0100, L501.5200, L500.4050 ####[facility] [address] [place], [address] MCHC (RBC) [Mass/Vol] 32.1 g/dL Normal 32-36 [facility] Comment on above: Performed By: #### L 100.0100, L501.5200, L500.4050 ####[facility] [address] [place], [address] MCV (RBC) [Entitic vol] 98.1 fL Normal 81-99 [facility] Comment on above: Performed By: #### L 100.0100, L501.5200, L500.4050 ####[facility] [address] [place], [address] Monocytes/100 WBC (Bld) 9.9 % Normal 0-10 [facility] Comment on above: Performed By: #### L 100.0100, L501.5200, L500.4050 ####[facility] [address] [place], [address] Neutrophils/100 WBC (Bld) 68.6 % Normal 47-70 [facility] Comment on above: Performed By: #### L 100.0100, L501.5200, L500.4050 ####[facility] [address] [place], [address] Nucleated RBC (Bld) [#/Vol] 0 10*3/uL Normal 0-5 [facility] Comment on above: Performed By: #### L 100.0100, L501.5200, L500.4050 ####[facility] [address] [place], [address] Platelet mean volume (Bld) [Entitic vol] 11.3 fL Normal 6.2-12.0 [facility] Comment on above: Performed By: #### L 100.0100, L501.5200, L500.4050 ####[facility] [address] [place], [address] Platelets (Bld) [#/Vol] 226 10*3/uL Normal 150-450 [facility] Comment on above: Performed By: #### L 100.0100, L501.5200, L500.4050 ####[facility] [address] [place], [address] RBC (Bld) [#/Vol] 3.24 10*6/uL Low 4.2-5.4 [facility] Comment on above: Performed By: #### L 100.0100, L501.5200, L500.4050 ####[facility] [address] [place], [address] RDW SD 50.9 fl High 35.1-43.9 [facility] Comment on above: Performed By: #### L 100.0100, L501.5200, L500.4050 ####[facility] [address] [place], [address] WBC (Bld) [#/Vol] 10.0 10*3/uL Normal 4.4-11.0 [facility] Comment on above: Performed By: #### L 100.0100, L501.5200, L500.4050 ####[facility] [address] [place], [address] Comprehensive Metabolic Prof [facility] 07-05-2024 Albumin [Mass/Vol] 3.3 g/dL Low 3.5-5.0 [facility] Comment on above: Performed By: #### L 100.0100, L501.5200, L500.4050 ####[facility] [address] [place], [address] Albumin/Globulin [Mass ratio] 1.1 {ratio} Normal 0.9-2.4 [facility] Comment on above: Performed By: #### L 100.0100, L501.5200, L500.4050 ####[facility] [address] [place], [address] ALK PHOS 110 U/L High 35-104 [facility] Comment on above: Performed By: #### L 100.0100, L501.5200, L500.4050 ####[facility] [address] [place], [address] ALT [Catalytic activity/Vol] 16 U/L Normal <=34 [facility] Comment on above: Performed By: #### L 100.0100, L501.5200, L500.4050 ####[facility] [address] [place], [address] AST [Catalytic activity/Vol] 18 U/L Normal <=31 [facility] Comment on above: Performed By: #### L 100.0100, L501.5200, L500.4050 ####[facility] [address] [place], [address] BUN/CRE 25.8 RATIO High 10-20 [facility] Comment on above: Performed By: #### L 100.0100, L501.5200, L500.4050 ####[facility] [address] [place], [address] Calcium [Mass/Vol] 8.8 mg/dL Normal 7.6-11.0 [facility] Comment on above: Performed By: #### L 100.0100, L501.5200, L500.4050 ####[facility] [address] [place], [address] Chloride [Moles/Vol] 97 mmol/L Low 98-108 [facility] Comment on above: Performed By: #### L 100.0100, L501.5200, L500.4050 ####[facility] [address] [place], [address] CO2 [Moles/Vol] 30.6 mmol/L Normal 21.0-32.0 [facility] Comment on above: Performed By: #### L 100.0100, L501.5200, L500.4050 ####[facility] [address] [place], [address] Creatinine [Mass/Vol] 0.46 mg/dL Low 0.70-1.20 [facility] Comment on above: Performed By: #### L 100.0100, L501.5200, L500.4050 ####[facility] [address] [place], [address] GAP 9 Normal 5-15 [facility] Comment on above: Performed By: #### L 100.0100, L501.5200, L500.4050 ####[facility] [address] [place], [address] GFR/1.73 sq M.predicted among non-blacks MDRD (S/P/Bld) [Vol rate/Area] 122 mL/min/{1.73_m2} Normal >60 [facility] Comment on above: Result Comment: mL/m in/1.73m2 CKD-EPI Creatinine Equation (2020) Performed By: #### L 100.0100, L501.5200, L500.4050 ####[facility] [address] [place], [address] Globulin (S) [Mass/Vol] 2.9 g/dL Normal 2.2-4.2 [facility] Comment on above: Performed By: #### L 100.0100, L501.5200, L500.4050 ####[facility] [address] [place], [address] Glucose [Mass/Vol] 91 mg/dL Normal 70-99 [facility] Comment on above: Performed By: #### L 100.0100, L501.5200, L500.4050 ####[facility] [address] [place], [address] Potassium [Moles/Vol] 4.6 mmol/L Normal 3.3-5.1 [facility] Comment on above: Performed By: #### L 100.0100, L501.5200, L500.4050 ####[facility] [address] [place], [address] Sodium [Moles/Vol] 137 mmol/L Normal 133-145 [facility] Comment on above: Performed By: #### L 100.0100, L501.5200, L500.4050 ####[facility] [address] [place], [address] T BILI < 0.15 Normal 0.00-1.30 [facility] Comment on above: Performed By: #### L 100.0100, L501.5200, L500.4050 ####[facility] [address] [place], [address] T PROT 6.2 g/dL Normal 5.9-8.4 [facility] Comment on above: Performed By: #### L 100.0100, L501.5200, L500.4050 ####[facility] [address] [place], [address] Urea nitrogen [Mass/Vol] 12 mg/dL Normal 4-19 [facility] Comment on above: Performed By: #### L 100.0100, L501.5200, L500.4050 ####[facility] [address] [place], [address] Magnesiumon 07-05-2024 Magnesium [Mass/Vol] 2.1 mg/dL Normal 1.5-2.2 [facility] Comment on above: Performed By: #### L 100.0100, L501.5200, L500.4050 ####[facility] [address] [place], [address] CBC W/Diff, Automatedon 04- Absolute Lymph 2.21 X10 3/uL Normal 0.83-4.51 [facility] Comment on above: Order Comment: 202 Performed By: #### L 100.0100, L501.5200, L500.4050 ####[facility] [address] [place], [address] Absolute Neut 6.5 X10 3/uL Normal 2.0-7.7 [facility] Comment on above: Order Comment: 202 Performed By: #### L 100.0100, L501.5200, L500.4050 ####[facility] [address] [place], [address] Basophils/100 WBC (Bld) 0.4 % Normal 0-1 [facility] Comment on above: Order Comment: 202 Performed By: #### L 100.0100, L501.5200, L500.4050 ####[facility] [address] [place], [address] Eosinophils/100 WBC (Bld) 5.3 % High 0-5 [facility] Comment on above: Order Comment: 202 Performed By: #### L 100.0100, L501.5200, L500.4050 ####[facility] [address] [place], [address] Erythrocyte distribution width (RBC) [Ratio] 13.8 % Normal 11.6-14.6 [facility] Comment on above: Order Comment: 202 Performed By: #### L 100.0100, L501.5200, L500.4050 ####[facility] [address] [place], [address] Hematocrit (Bld) [Volume fraction] 33.0 % Low 37-47 [facility] Comment on above: Order Comment: 202 Performed By: #### L 100.0100, L501.5200, L500.4050 ####[facility] [address] [place], [address] Hemoglobin (Bld) [Mass/Vol] 10.5 g/dL Low 12.0-15.0 [facility] Comment on above: Order Comment: 202 Performed By: #### L 100.0100, L501.5200, L500.4050 ####[facility] [address] [place], [address] IG% 0.600 Normal 0.0-0.9 [facility] Comment on above: Order Comment: 202 Result Comment: IG% - Immature Granulocytes (promyelocytes, myelocytes andmetamyelocytes) > 1% indicates that a LEFT SHIFT is Present. Performed By: #### L 100.0100, L501.5200, L500.4050 ####[facility] [address] [place], [address] Lymphocytes/100 WBC (Bld) 21.4 % Normal 19-41 [facility] Comment on above: Order Comment: 202 Performed By: #### L 100.0100, L501.5200, L500.4050 ####[facility] [address] [place], [address] MCH (RBC) [Entitic mass] 31.3 pg Normal 27.0-32.0 [facility] Comment on above: Order Comment: 202 Performed By: #### L 100.0100, L501.5200, L500.4050 ####[facility] [address] [place], [address] MCHC (RBC) [Mass/Vol] 31.8 g/dL Low 32-36 [facility] Comment on above: Order Comment: 202 Performed By: #### L 100.0100, L501.5200, L500.4050 ####[facility] [address] [place], [address] MCV (RBC) [Entitic vol] 98.5 fL Normal 81-99 [facility] Comment on above: Order Comment: 202 Performed By: #### L 100.0100, L501.5200, L500.4050 ####[facility] [address] [place], [address] Monocytes/100 WBC (Bld) 10.0 % Normal 0-10 [facility] Comment on above: Order Comment: 202 Performed By: #### L 100.0100, L501.5200, L500.4050 ####[facility] [address] [place], [address] Neutrophils/100 WBC (Bld) 62.3 % Normal 47-70 [facility] Comment on above: Order Comment: 202 Performed By: #### L 100.0100, L501.5200, L500.4050 ####[facility] [address] [place], [address] Nucleated RBC (Bld) [#/Vol] 0 10*3/uL Normal 0-5 [facility] Comment on above: Order Comment: 202 Performed By: #### L 100.0100, L501.5200, L500.4050 ####[facility] [address] [place], [address] Platelet mean volume (Bld) [Entitic vol] 11.5 fL Normal 6.2-12.0 [facility] Comment on above: Order Comment: 202 Performed By: #### L 100.0100, L501.5200, L500.4050 ####[facility] [address] [place], [address] Platelets (Bld) [#/Vol] 209 10*3/uL Normal 150-450 [facility] Comment on above: Order Comment: 202 Performed By: #### L 100.0100, L501.5200, L500.4050 ####[facility] [address] [place], [address] RBC (Bld) [#/Vol] 3.35 10*6/uL Low 4.2-5.4 [facility] Comment on above: Order Comment: 202 Performed By: #### L 100.0100, L501.5200, L500.4050 ####[facility] [address] [place], [address] RDW SD 49.6 fl High 35.1-43.9 [facility] Comment on above: Order Comment: 202 Performed By: #### L 100.0100, L501.5200, L500.4050 ####[facility] [address] [place], [address] WBC (Bld) [#/Vol] 10.4 10*3/uL Normal 4.4-11.0 [facility] Comment on above: Order Comment: 202 Performed By: #### L 100.0100, L501.5200, L500.4050 ####[facility] [address] [place], [address] Comprehensive Metabolic Prof [facility] 2024 Albumin [Mass/Vol] 3.3 g/dL Low 3.5-5.0 [facility] Comment on above: Order Comment: 202 Performed By: #### L 100.0100, L501.5200, L500.4050 ####[facility] [address] [place], [address] Albumin/Globulin [Mass ratio] 1.0 {ratio} Normal 0.9-2.4 [facility] Comment on above: Order Comment: 202 Performed By: #### L 100.0100, L501.5200, L500.4050 ####[facility] [address] [place], [address] ALK PHOS 103 U/L Normal 35-104 [facility] Comment on above: Order Comment: 202 Performed By: #### L 100.0100, L501.5200, L500.4050 ####[facility] [address] [place], [address] ALT [Catalytic activity/Vol] 19 U/L Normal <=34 [facility] Comment on above: Order Comment: 202 Performed By: #### L 100.0100, L501.5200, L500.4050 ####[facility] [address] [place], [address] AST [Catalytic activity/Vol] 19 U/L Normal <=31 [facility] Comment on above: Order Comment: 202 Performed By: #### L 100.0100, L501.5200, L500.4050 ####[facility] [address] [place], [address] Bilirubin [Mass/Vol] 0.27 mg/dL Normal 0.00-1.30 [facility] Comment on above: Order Comment: 202 Performed By: #### L 100.0100, L501.5200, L500.4050 ####[facility] [address] [place], [address] BUN/CRE 23.1 RATIO High 10-20 [facility] Comment on above: Order Comment: 202 Performed By: #### L 100.0100, L501.5200, L500.4050 ####[facility] [address] [place], [address] Calcium [Mass/Vol] 9.0 mg/dL Normal 7.6-11.0 [facility] Comment on above: Order Comment: 202 Performed By: #### L 100.0100, L501.5200, L500.4050 ####[facility] [address] [place], [address] Chloride [Moles/Vol] 95 mmol/L Low 98-108 [facility] Comment on above: Order Comment: 202 Performed By: #### L 100.0100, L501.5200, L500.4050 ####[facility] [address] [place], [address] CO2 [Moles/Vol] 29.8 mmol/L Normal 21.0-32.0 [facility] Comment on above: Order Comment: 202 Performed By: #### L 100.0100, L501.5200, L500.4050 ####[facility] [address] [place], [address] Creatinine [Mass/Vol] 0.43 mg/dL Low 0.70-1.20 [facility] Comment on above: Order Comment: 202 Performed By: #### L 100.0100, L501.5200, L500.4050 ####[facility] [address] [place], [address] GAP 10 Normal 5-15 [facility] Comment on above: Order Comment: 202 Performed By: #### L 100.0100, L501.5200, L500.4050 ####[facility] [address] [place], [address] GFR/1.73 sq M.predicted among non-blacks MDRD (S/P/Bld) [Vol rate/Area] 125 mL/min/{1.73_m2} Normal >60 [facility] Comment on above: Order Comment: 202 Result Comment: mL/m in/1.73m2 CKD-EPI Creatinine Equation (2020) Performed By: #### L 100.0100, L501.5200, L500.4050 ####[facility] [address] [place], [address] Globulin (S) [Mass/Vol] 3.2 g/dL Normal 2.2-4.2 [facility] Comment on above: Order Comment: 202 Performed By: #### L 100.0100, L501.5200, L500.4050 ####[facility] [address] [place], [address] Glucose [Mass/Vol] 90 mg/dL Normal 70-99 [facility] Comment on above: Order Comment: 202 Performed By: #### L 100.0100, L501.5200, L500.4050 ####[facility] [address] [place], [address] Potassium [Moles/Vol] 4.1 mmol/L Normal 3.3-5.1 [facility] Comment on above: Order Comment: 202 Performed By: #### L 100.0100, L501.5200, L500.4050 ####[facility] [address] [place], [address] Sodium [Moles/Vol] 134 mmol/L Normal 133-145 [facility] Comment on above: Order Comment: 202 Performed By: #### L 100.0100, L501.5200, L500.4050 ####[facility] [address] [place], [address] T PROT 6.5 g/dL Normal 5.9-8.4 [facility] Comment on above: Order Comment: 202 Performed By: #### L 100.0100, L501.5200, L500.4050 ####[facility] [address] [place], [address] Urea nitrogen [Mass/Vol] 10 mg/dL Normal 4-19 [facility] Comment on above: Order Comment: 202 Performed By: #### L 100.0100, L501.5200, L500.4050 ####[facility] [address] [place], [address] Magnesiumon 2024 Magnesium [Mass/Vol] 2.0 mg/dL Normal 1.5-2.2 [facility] Comment on above: Order Comment: 202 Performed By: #### L 100.0100, L501.5200, L500.4050 ####[facility] [address] [place], [address] CBC W/Diff, Automatedon 06-09 Absolute Neut Normal 2.0-7.7 [facility] Comment on above: Order Comment: Result Comment: DID NOT GET LABS 06/29/24 Performed By: #### L 100.0100, L500.4050 ####[facility] [address] [place], [address] HCT Normal 37-47 [facility] Comment on above: Order Comment: Result Comment: DID NOT GET LABS 06/29/24 Performed By: #### L 100.0100, L500.4050 ####[facility] [address] [place], [address] HGB Normal 12.0-15.0 [facility] Comment on above: Order Comment: Result Comment: DID NOT GET LABS 06/29/24 Performed By: #### L 100.0100, L500.4050 ####[facility] [address] [place], [address] MCH Normal 27.0-32.0 [facility] Comment on above: Order Comment: Result Comment: DID NOT GET LABS 06/29/24 Performed By: #### L 100.0100, L500.4050 ####[facility] [address] [place], [address] MCHC Normal 32-36 [facility] Comment on above: Order Comment: Result Comment: DID NOT GET LABS 06/29/24 Performed By: #### L 100.0100, L500.4050 ####[facility] [address] [place], [address] MCV Normal 81-99 [facility] Comment on above: Order Comment: Result Comment: DID NOT GET LABS 06/29/24 Performed By: #### L 100.0100, L500.4050 ####[facility] [address] [place], [address] NEUT% Normal 47-70 [facility] Comment on above: Order Comment: Result Comment: DID NOT GET LABS 06/29/24 Performed By: #### L 100.0100, L500.4050 ####[facility] [address] [place], [address] PLT Normal 150-450 [facility] Comment on above: Order Comment: Result Comment: DID NOT GET LABS 06/29/24 Performed By: #### L 100.0100, L500.4050 ####[facility] [address] [place], [address] RBC Normal 4.2-5.4 [facility] Comment on above: Order Comment: Result Comment: DID NOT GET LABS 06/29/24 Performed By: #### L 100.0100, L500.4050 ####[facility] [address] [place], [address] RDW CV Normal 11.6-14.6 [facility] Comment on above: Order Comment: Result Comment: DID NOT GET LABS 06/29/24 Performed By: #### L 100.0100, L500.4050 ####[facility] [address] [place], [address] RDW SD Normal 35.1-43.9 [facility] Comment on above: Order Comment: Result Comment: DID NOT GET LABS 06/29/24 Performed By: #### L 100.0100, L500.4050 ####[facility] [address] [place], [address] WBC Normal 4.4-11.0 [facility] Comment on above: Order Comment: Result Comment: DID NOT GET LABS 06/29/24 Performed By: #### L 100.0100, L500.4050 ####[facility] [address] [place], [address] Comprehensive Metabolic Prof ilon 06-29-2024 ALB Normal 3.5-5.0 [facility] Comment on above: Order Comment: Result Comment: DID NOT GET LABS 06/29/24 Performed By: #### L 100.0100, L500.4050 ####[facility] [address] [place], [address] ALK PHOS Normal 35-104 [facility] Comment on above: Order Comment: Result Comment: DID NOT GET LABS 06/29/24 Performed By: #### L 100.0100, L500.4050 ####[facility] [address] [place], [address] ALT Normal <=34 [facility] Comment on above: Order Comment: Result Comment: DID NOT GET LABS 06/29/24 Performed By: #### L 100.0100, L500.4050 ####[facility] [address] [place], [address] AST Normal <=31 [facility] Comment on above: Order Comment: Result Comment: DID NOT GET LABS 06/29/24 Performed By: #### L 100.0100, L500.4050 ####[facility] [address] [place], [address] BUN Normal - [facility] Comment on above: Order Comment: Result Comment: DID NOT GET LABS 06/29/24 Performed By: #### L 100.0100, L500.4050 ####[facility] [address] [place], [address] BUN/CRE Normal - [facility] Comment on above: Order Comment: Result Comment: DID NOT GET LABS 06/29/24 Performed By: #### L 100.0100, L500.4050 ####[facility] [address] [place], [address] Calcium Normal 7.6-11.0 [facility] Comment on above: Order Comment: Result Comment: DID NOT GET LABS 06/29/24 Performed By: #### L 100.0100, L500.4050 ####[facility] [address] [place], [address] CL Normal 98-108 [facility] Comment on above: Order Comment: Result Comment: DID NOT GET LABS 06/29/24 Performed By: #### L 100.0100, L500.4050 ####[facility] [address] [place], [address] CO2 Normal 21.0-32.0 [facility] Comment on above: Order Comment: Result Comment: DID NOT GET LABS 06/29/24 Performed By: #### L 100.0100, L500.4050 ####[facility] [address] [place], [address] CREAT,SERUM Normal 0.70-1.20 [facility] Comment on above: Order Comment: Result Comment: DID NOT GET LABS 06/29/24 Performed By: #### L 100.0100, L500.4050 ####[facility] [address] [place], [address] eGFR Normal >60 [facility] Comment on above: Order Comment: Result Comment: DID NOT GET LABS 06/29/24 Performed By: #### L 100.0100, L500.4050 ####[facility] [address] [place], [address] GAP Normal 5-15 [facility] Comment on above: Order Comment: Result Comment: DID NOT GET LABS 06/29/24 Performed By: #### L 100.0100, L500.4050 ####[facility] [address] [place], [address] GLU Normal 70-99 [facility] Comment on above: Order Comment: Result Comment: DID NOT GET LABS 06/29/24 Performed By: #### L 100.0100, L500.4050 ####[facility] [address] [place], [address] Potassium Normal 3.3-5.1 [facility] Comment on above: Order Comment: Result Comment: DID NOT GET LABS 06/29/24 Performed By: #### L 100.0100, L500.4050 ####[facility] [address] [place], [address] T BILI Normal 0.00-1.30 [facility] Comment on above: Order Comment: Result Comment: DID NOT GET LABS 06/29/24 Performed By: #### L 100.0100, L500.4050 ####[facility] [address] [place], [address] T PROT Normal 5.9-8.4 [facility] Comment on above: Order Comment: Result Comment: DID NOT GET LABS 06/29/24 Performed By: #### L 100.0100, L500.4050 ####[facility] [address] [place], [address] Comprehensive Metabolic Profil Normal 133-145 [facility] Comment on above: Order Comment: Result Comment: DID NOT GET LABS 06/29/24 Performed By: #### L 100.0100, L500.4050 ####[facility] [address] [place], [address] CBC W/Diff, Automatedon 04-2 Absolute Neut Normal 2.0-7.7 [facility] Comment on above: Order Comment: . Result Comment: UTO X2 Performed By: #### L 100.0100, L500.4050 ####[facility] [address] [place], [address] HCT Normal 37-47 [facility] Comment on above: Order Comment: Result Comment: UTO X2 Performed By: #### L 100.0100, L500.4050 ####[facility] [address] [place], [address] HGB Normal 12.0-15.0 [facility] Comment on above: Order Comment: Result Comment: UTO X2 Performed By: #### L 100.0100, L500.4050 ####[facility] [address] [place], [address] MCH Normal 27.0-32.0 [facility] Comment on above: Order Comment: Result Comment: UTO X2 Performed By: #### L 100.0100, L500.4050 ####[facility] [address] [place], [address] MCHC Normal 32-36 [facility] Comment on above: Order Comment: Result Comment: UTO X2 Performed By: #### L 100.0100, L500.4050 ####[facility] [address] [place], [address] MCV Normal 81-99 [facility] Comment on above: Order Comment: Result Comment: UTO X2 Performed By: #### L 100.0100, L500.4050 ####[facility] [address] [place], [address] NEUT% Normal 47-70 [facility] Comment on above: Order Comment: Result Comment: UTO X2 Performed By: #### L 100.0100, L500.4050 ####[facility] [address] [place], [address] PLT Normal 150-450 [facility] Comment on above: Order Comment: Result Comment: UTO X2 Performed By: #### L 100.0100, L500.4050 ####[facility] [address] [place], [address] RBC Normal 4.2-5.4 [facility] Comment on above: Order Comment: Result Comment: UTO X2 Performed By: #### L 100.0100, L500.4050 ####[facility] [address] [place], [address] RDW CV Normal 11.6-14.6 [facility] Comment on above: Order Comment: Result Comment: UTO X2 Performed By: #### L 100.0100, L500.4050 ####[facility] [address] [place], [address] RDW SD Normal 35.1-43.9 [facility] Comment on above: Order Comment: Result Comment: UTO X2 Performed By: #### L 100.0100, L500.4050 ####[facility] [address] [place], [address] WBC Normal 4.4-11.0 [facility] Comment on above: Order Comment: Result Comment: UTO X2 Performed By: #### L 100.0100, L500.4050 ####[facility] [address] [place], [address] Comprehensive Metabolic Prof ilon 06-28-2024 ALB Normal 3.5-5.0 [facility] Comment on above: Order Comment: Result Comment: UTO X2 Performed By: #### L 100.0100, L500.4050 ####[facility] [address] [place], [address] ALK PHOS Normal 35-104 [facility] Comment on above: Order Comment: Result Comment: UTO X2 Performed By: #### L 100.0100, L500.4050 ####[facility] [address] [place], [address] ALT Normal <=34 [facility] Comment on above: Order Comment: Result Comment: UTO X2 Performed By: #### L 100.0100, L500.4050 ####[facility] [address] [place], [address] AST Normal <=31 [facility] Comment on above: Order Comment: Result Comment: UTO X2 Performed By: #### L 100.0100, L500.4050 ####[facility] [address] [place], [address] BUN Normal 4-19 [facility] Comment on above: Order Comment: Result Comment: UTO X2 Performed By: #### L 100.0100, L500.4050 ####[facility] [address] [place], [address] BUN/CRE Normal 10-20 [facility] Comment on above: Order Comment: Result Comment: UTO X2 Performed By: #### L 100.0100, L500.4050 ####[facility] [address] [place], [address] Calcium Normal 7.6-11.0 [facility] Comment on above: Order Comment: Result Comment: UTO X2 Performed By: #### L 100.0100, L500.4050 ####[facility] [address] [place], [address] CL Normal 98-108 [facility] Comment on above: Order Comment: Result Comment: UTO X2 Performed By: #### L 100.0100, L500.4050 ####[facility] [address] [place], [address] CO2 Normal 21.0-32.0 [facility] Comment on above: Order Comment: Result Comment: UTO X2 Performed By: #### L 100.0100, L500.4050 ####[facility] [address] [place], [address] CREAT,SERUM Normal 0.70-1.20 [facility] Comment on above: Order Comment: Result Comment: UTO X2 Performed By: #### L 100.0100, L500.4050 ####[facility] [address] [place], [address] eGFR Normal >60 [facility] Comment on above: Order Comment: Result Comment: UTO X2 Performed By: #### L 100.0100, L500.4050 ####[facility] [address] [place], [address] GAP Normal 5-15 [facility] Comment on above: Order Comment: Result Comment: UTO X2 Performed By: #### L 100.0100, L500.4050 ####[facility] [address] [place], [address] GLU Normal 70-99 [facility] Comment on above: Order Comment: Result Comment: UTO X2 Performed By: #### L 100.0100, L500.4050 ####[facility] [address] [place], [address] Potassium Normal 3.3-5.1 [facility] Comment on above: Order Comment: Result Comment: UTO X2 Performed By: #### L 100.0100, L500.4050 ####[facility] [address] [place], [address] T BILI Normal 0.00-1.30 [facility] Comment on above: Order Comment: Result Comment: UTO X2 Performed By: #### L 100.0100, L500.4050 ####[facility] [address] [place], [address] T PROT Normal 5.9-8.4 [facility] Comment on above: Order Comment: Result Comment: UTO X2 Performed By: #### L 100.0100, L500.4050 ####[facility] [address] [place], [address] Comprehensive Metabolic Profil Normal 133-145 [facility] Comment on above: Order Comment: Result Comment: UTO X2 Performed By: #### L 100.0100, L500.4050 ####[facility] [address] [place], [address] CBC W/Diff, Automatedon 06-08 Absolute Lymph 2.28 X10 3/uL Normal 0.83-4.51 [facility] Comment on above: Performed By: #### L 100.0100, L506.1001, L501.9985, L503.0106, L501.5200, L501.9520, L500.4050 ####[facility] [address] [place], [address] Absolute Neut 8.9 X10 3/uL High 2.0-7.7 [facility] Comment on above: Performed By: #### L 100.0100, L506.1001, L501.9985, L503.0106, L501.5200, L501.9520, L500.4050 ####[facility] [address] [place], [address] Basophils/100 WBC (Bld) 0.4 % Normal 0-1 [facility] Comment on above: Performed By: #### L 100.0100, L506.1001, L501.9985, L503.0106, L501.5200, L501.9520, L500.4050 ####[facility] [address] [place], [address] Eosinophils/100 WBC (Bld) 3.3 % Normal 0-5 [facility] Comment on above: Performed By: #### L 100.0100, L506.1001, L501.9985, L503.0106, L501.5200, L501.9520, L500.4050 ####[facility] [address] [place], [address] Erythrocyte distribution width (RBC) [Ratio] 14.6 % Normal 11.6-14.6 [facility] Comment on above: Performed By: #### L 100.0100, L506.1001, L501.9985, L503.0106, L501.5200, L501.9520, L500.4050 ####[facility] [address] [place], [address] Hematocrit (Bld) [Volume fraction] 34.5 % Low 37-47 [facility] Comment on above: Performed By: #### L 100.0100, L506.1001, L501.9985, L503.0106, L501.5200, L501.9520, L500.4050 ####[facility] [address] [place], [address] Hemoglobin (Bld) [Mass/Vol] 11.0 g/dL Low 12.0-15.0 [facility] Comment on above: Performed By: #### L 100.0100, L506.1001, L501.9985, L503.0106, L501.5200, L501.9520, L500.4050 ####[facility] [address] [place], [address] IG% 0.600 Normal 0.0-0.9 [facility] Comment on above: Result Comment: IG% - Immature Granulocytes (promyelocytes, myelocytes andmetamyelocytes) > 1% indicates that a LEFT SHIFT is Present. Performed By: #### L 100.0100, L506.1001, L501.9985, L503.0106, L501.5200, L501.9520, L500.4050 ####[facility] [address] [place], [address] Lymphocytes/100 WBC (Bld) 18.0 % Low 19-41 [facility] Comment on above: Performed By: #### L 100.0100, L506.1001, L501.9985, L503.0106, L501.5200, L501.9520, L500.4050 ####[facility] [address] [place], [address] MCH (RBC) [Entitic mass] 31.6 pg Normal 27.0-32.0 [facility] Comment on above: Performed By: #### L 100.0100, L506.1001, L501.9985, L503.0106, L501.5200, L501.9520, L500.4050 ####[facility] [address] [place], [address] MCHC (RBC) [Mass/Vol] 31.9 g/dL Low 32-36 [facility] Comment on above: Performed By: #### L 100.0100, L506.1001, L501.9985, L503.0106, L501.5200, L501.9520, L500.4050 ####[facility] [address] [place], [address] MCV (RBC) [Entitic vol] 99.1 fL High 81-99 [facility] Comment on above: Performed By: #### L 100.0100, L506.1001, L501.9985, L503.0106, L501.5200, L501.9520, L500.4050 ####[facility] [address] [place], [address] Monocytes/100 WBC (Bld) 8.0 % Normal 0-10 [facility] Comment on above: Performed By: #### L 100.0100, L506.1001, L501.9985, L503.0106, L501.5200, L501.9520, L500.4050 ####[facility] [address] [place], [address] Neutrophils/100 WBC (Bld) 69.7 % Normal 47-70 [facility] Comment on above: Performed By: #### L 100.0100, L506.1001, L501.9985, L503.0106, L501.5200, L501.9520, L500.4050 ####[facility] [address] [place], [address] Nucleated RBC (Bld) [#/Vol] 0 10*3/uL Normal 0-5 [facility] Comment on above: Performed By: #### L 100.0100, L506.1001, L501.9985, L503.0106, L501.5200, L501.9520, L500.4050 ####[facility] [address] [place], [address] Platelet mean volume (Bld) [Entitic vol] 11.9 fL Normal 6.2-12.0 [facility] Comment on above: Performed By: #### L 100.0100, L506.1001, L501.9985, L503.0106, L501.5200, L501.9520, L500.4050 ####[facility] [address] [place], [address] Platelets (Bld) [#/Vol] 235 10*3/uL Normal 150-450 [facility] Comment on above: Performed By: #### L 100.0100, L506.1001, L501.9985, L503.0106, L501.5200, L501.9520, L500.4050 ####[facility] [address] [place], [address] RBC (Bld) [#/Vol] 3.48 10*6/uL Low 4.2-5.4 [facility] Comment on above: Performed By: #### L 100.0100, L506.1001, L501.9985, L503.0106, L501.5200, L501.9520, L500.4050 ####[facility] [address] [place], [address] RDW SD 53.0 fl High 35.1-43.9 [facility] Comment on above: Performed By: #### L 100.0100, L506.1001, L501.9985, L503.0106, L501.5200, L501.9520, L500.4050 ####[facility] [address] [place], [place], [id number]) WBC (Bld) [#/Vol] 12.7 10*3/uL High 4.4-11.0 [facility] Comment on above: Performed By: #### L 100.0100, L506.1001, L501.9985, L503.0106, L501.5200, L501.9520, L500.4050 ####[facility] [address] [place], [address] Comprehensive Metabolic Prof mion 06-21-2024 Albumin [Mass/Vol] 3.6 g/dL Normal 3.5-5.0 [facility] Comment on above: Performed By: #### L 100.0100, L506.1001, L501.9985, L503.0106, L501.5200, L501.9520, L500.4050 ####[facility] [address] [place], [address] Albumin/Globulin [Mass ratio] 1.1 {ratio} Normal 0.9-2.4 [facility] Comment on above: Performed By: #### L 100.0100, L506.1001, L501.9985, L503.0106, L501.5200, L501.9520, L500.4050 ####[facility] [address] [place], [address] ALK PHOS 97 U/L Normal 35-104 [facility] Comment on above: Performed By: #### L 100.0100, L506.1001, L501.9985, L503.0106, L501.5200, L501.9520, L500.4050 ####[facility] [address] [place], [address] ALT [Catalytic activity/Vol] 23 U/L Normal <=34 [facility] Comment on above: Performed By: #### L 100.0100, L506.1001, L501.9985, L503.0106, L501.5200, L501.9520, L500.4050 ####[facility] [address] [place], [address] AST [Catalytic activity/Vol] 19 U/L Normal <=31 [facility] Comment on above: Performed By: #### L 100.0100, L506.1001, L501.9985, L503.0106, L501.5200, L501.9520, L500.4050 ####[facility] [address] [place], [address] Bilirubin [Mass/Vol] 0.34 mg/dL Normal 0.00-1.30 [facility] Comment on above: Performed By: #### L 100.0100, L506.1001, L501.9985, L503.0106, L501.5200, L501.9520, L500.4050 ####[facility] [address] [place], [address] BUN/CRE 34.3 RATIO High 10-20 [facility] Comment on above: Performed By: #### L 100.0100, L506.1001, L501.9985, L503.0106, L501.5200, L501.9520, L500.4050 ####[facility] [address] [place], [address] Calcium [Mass/Vol] 9.6 mg/dL Normal 7.6-11.0 [facility] Comment on above: Performed By: #### L 100.0100, L506.1001, L501.9985, L503.0106, L501.5200, L501.9520, L500.4050 ####[facility] [address] [place], [address] Chloride [Moles/Vol] 92 mmol/L Low 98-108 [facility] Comment on above: Performed By: #### L 100.0100, L506.1001, L501.9985, L503.0106, L501.5200, L501.9520, L500.4050 ####[facility] [address] [place], [address] CO2 [Moles/Vol] 31.5 mmol/L Normal 21.0-32.0 [facility] Comment on above: Performed By: #### L 100.0100, L506.1001, L501.9985, L503.0106, L501.5200, L501.9520, L500.4050 ####[facility] [address] [place], [address] Creatinine [Mass/Vol] 0.43 mg/dL Low 0.70-1.20 [facility] Comment on above: Performed By: #### L 100.0100, L506.1001, L501.9985, L503.0106, L501.5200, L501.9520, L500.4050 ####[facility] [address] [place], [address] GAP 10 Normal 5-15 [facility] Comment on above: Performed By: #### L 100.0100, L506.1001, L501.9985, L503.0106, L501.5200, L501.9520, L500.4050 ####[facility] [address] [place], [address] GFR/1.73 sq M.predicted among non-blacks MDRD (S/P/Bld) [Vol rate/Area] 126 mL/min/{1.73_m2} Normal >60 [facility] Comment on above: Result Comment: mL/m in/1.73m2 CKD-EPI Creatinine Equation (2020) Performed By: #### L 100.0100, L506.1001, L501.9985, L503.0106, L501.5200, L501.9520, L500.4050 ####[facility] [address] [place], [address] Globulin (S) [Mass/Vol] 3.4 g/dL Normal 2.2-4.2 [facility] Comment on above: Performed By: #### L 100.0100, L506.1001, L501.9985, L503.0106, L501.5200, L501.9520, L500.4050 ####[facility] [address] [place], [address] Glucose [Mass/Vol] 80 mg/dL Normal 70-99 [facility] Comment on above: Performed By: #### L 100.0100, L506.1001, L501.9985, L503.0106, L501.5200, L501.9520, L500.4050 ####[facility] [address] [place], [address] Potassium [Moles/Vol] 4.0 mmol/L Normal 3.3-5.1 [facility] Comment on above: Performed By: #### L 100.0100, L506.1001, L501.9985, L503.0106, L501.5200, L501.9520, L500.4050 ####[facility] [address] [place], [address] Sodium [Moles/Vol] 134 mmol/L Normal 133-145 [facility] Comment on above: Performed By: #### L 100.0100, L506.1001, L501.9985, L503.0106, L501.5200, L501.9520, L500.4050 ####[facility] [address] [place], [address] T PROT 7.0 g/dL Normal 5.9-8.4 [facility] Comment on above: Performed By: #### L 100.0100, L506.1001, L501.9985, L503.0106, L501.5200, L501.9520, L500.4050 ####[facility] [address] [place], [address] Urea nitrogen [Mass/Vol] 15 mg/dL Normal 4-19 [facility] Comment on above: Performed By: #### L 100.0100, L506.1001, L501.9985, L503.0106, L501.5200, L501.9520, L500.4050 ####[facility] [address] [place], [address] Hemoglobin A1con 06-21-2024 HbA1c (Bld) [Mass fraction] 5.0 % Normal <=5.6 [facility] Comment on above: Result Comment: Norm al < 5.7 % Prediabetic 5.7 - 6.4 % Diabetic >or= 6.5 % Please note range changes. Performed By: #### L 100.0100, L506.1001, L501.9985, L503.0106, L501.5200, L501.9520, L500.4050 ####[facility] [address] [place], [address] Magnesiumon 06-21-2024 Magnesium [Mass/Vol] 2.1 mg/dL Normal 1.5-2.2 [facility] Comment on above: Performed By: #### L 100.0100, L506.1001, L501.9985, L503.0106, L501.5200, L501.9520, L500.4050 ####[facility] [address] [place], [place], [id number] Thyroid Stim Hormone (TSH)on 06-21-2024 TSH 3.960 uIU/mL Normal 0.300-4.200 [facility] Comment on above: Performed By: #### L 100.0100, L506.1001, L501.9985, L503.0106, L501.5200, L501.9520, L500.4050 ####[facility] [address] [facility] [place], [place], [id number] Vitamin B12on 06-21-2024 Cobalamin (Vitamin B12) [Mass/Vol] 755 pg/mL Normal 180-914 [facility] Comment on above: Performed By: #### L 100.0100, L506.1001, L501.9985, L503.0106, L501.5200, L501.9520, L500.4050 ####[facility] [address] [facility] [place], [place], [id number] Vitamin D,25 Hydroxyon 06-21 Vitamin D 25-OH 24.1 ng/mL Low 30-100 [facility] Comment on above: Result Comment: Darcie min D StatusDeficiency: <20 ng/mL (50nmol/L)Insufficiency: 20-30 ng/mL (50-75 nmol/L)Sufficiency: 30-100 ng/mL (75-250 nmol/L)Toxicity: >100 ng/mL (>250 nmol/L) Performed By: #### L 100.0100, L506.1001, L501.9985, L503.0106, L501.5200, L501.9520, L500.4050 ####[facility] [address] [place], [address] CBC-Complete Blood Cnt No Yesenia lizon 06-18-2024 Erythrocyte distribution width (RBC) [Ratio] 14.5 % Normal 11.6-14.6 [facility] Comment on above: Order Comment: . Performed By: #### L 100.0500, L500.4050 ####[facility] [address] [place], [address] Hematocrit (Bld) [Volume fraction] 34.9 % Low 37-47 [facility] Comment on above: Order Comment: . Performed By: #### L 100.0500, L500.4050 ####[facility] [address] [place], [address] Hemoglobin (Bld) [Mass/Vol] 10.9 g/dL Low 12.0-15.0 [facility] Comment on above: Order Comment: . Performed By: #### L 100.0500, L500.4050 ####[facility] [address] [place], [address] MCH (RBC) [Entitic mass] 31.6 pg Normal 27.0-32.0 [facility] Comment on above: Order Comment: . Performed By: #### L 100.0500, L500.4050 ####[facility] [address] [place], [address] MCHC (RBC) [Mass/Vol] 31.2 g/dL Low 32-36 [facility] Comment on above: Order Comment: . Performed By: #### L 100.0500, L500.4050 ####[facility] [address] [place], [address] MCV (RBC) [Entitic vol] 101.2 fL High 81-99 [facility] Comment on above: Order Comment: . Performed By: #### L 100.0500, L500.4050 ####[facility] [address] [place], [address] Platelet mean volume (Bld) [Entitic vol] 11.3 fL Normal 6.2-12.0 [facility] Comment on above: Order Comment: . Performed By: #### L 100.0500, L500.4050 ####[facility] [address] [place], [address] Platelets (Bld) [#/Vol] 212 10*3/uL Normal 150-450 [facility] Comment on above: Order Comment: . Performed By: #### L 100.0500, L500.4050 ####[facility] [address] [place], [address] RBC (Bld) [#/Vol] 3.45 10*6/uL Low 4.2-5.4 [facility] Comment on above: Order Comment: . Performed By: #### L 100.0500, L500.4050 ####[facility] [address] [place], [address] RDW SD 54.3 fl High 35.1-43.9 [facility] Comment on above: Order Comment: . Performed By: #### L 100.0500, L500.4050 ####[facility] [address] [place], [address] WBC (Bld) [#/Vol] 12.3 10*3/uL High 4.4-11.0 [facility] Comment on above: Order Comment: . Performed By: #### L 100.0500, L500.4050 ####[facility] [address] [place], [address] Comprehensive Metabolic Prof ilon 06-18-2024 Albumin [Mass/Vol] 3.5 g/dL Normal 3.5-5.0 [facility] Comment on above: Order Comment: . Performed By: #### L 100.0500, L500.4050 ####[facility] [address] [place], [address] Albumin/Globulin [Mass ratio] 1.1 {ratio} Normal 0.9-2.4 [facility] Comment on above: Order Comment: .1 Performed By: #### L 100.0500, L500.4050 ####[facility] [address] [place], [address] ALK PHOS 93 U/L Normal 35-104 [facility] Comment on above: Order Comment: . Performed By: #### L 100.0500, L500.4050 ####[facility] [address] [place], [address] ALT [Catalytic activity/Vol] 26 U/L Normal <=34 [facility] Comment on above: Order Comment: . Performed By: #### L 100.0500, L500.4050 ####[facility] [address] [place], [address] AST [Catalytic activity/Vol] 19 U/L Normal <=31 [facility] Comment on above: Order Comment: . Performed By: #### L 100.0500, L500.4050 ####[facility] [address] [place], [address] Bilirubin [Mass/Vol] 0.25 mg/dL Normal 0.00-1.30 [facility] Comment on above: Order Comment: . Performed By: #### L 100.0500, L500.4050 ####[facility] [address] [place], [address] BUN/CRE 44.5 RATIO High 10-20 [facility] Comment on above: Order Comment: .1 Performed By: #### L 100.0500, L500.4050 ####[facility] [address] [place], [address] Calcium [Mass/Vol] 9.8 mg/dL Normal 7.6-11.0 [facility] Comment on above: Order Comment: . Performed By: #### L 100.0500, L500.4050 ####[facility] [address] [place], [address] Chloride [Moles/Vol] 94 mmol/L Low 98-108 [facility] Comment on above: Order Comment: . Performed By: #### L 100.0500, L500.4050 ####[facility] [address] [place], [address] CO2 [Moles/Vol] 33.5 mmol/L High 21.0-32.0 [facility] Comment on above: Order Comment: . Performed By: #### L 100.0500, L500.4050 ####[facility] [address] [place], [address] Creatinine [Mass/Vol] 0.40 mg/dL Low 0.70-1.20 [facility] Comment on above: Order Comment: . Performed By: #### L 100.0500, L500.4050 ####[facility] [address] [place], [address] GAP 10 Normal 5-15 [facility] Comment on above: Order Comment: . Performed By: #### L 100.0500, L500.4050 ####[facility] [address] [place], [address] GFR/1.73 sq M.predicted among non-blacks MDRD (S/P/Bld) [Vol rate/Area] 127 mL/min/{1.73_m2} Normal >60 [facility] Comment on above: Order Comment: . Result Comment: mL/m in/1.73m2 CKD-EPI Creatinine Equation (2020) Performed By: #### L 100.0500, L500.4050 ####[facility] [address] [place], [address] Globulin (S) [Mass/Vol] 3.3 g/dL Normal 2.2-4.2 [facility] Comment on above: Order Comment: . Performed By: #### L 100.0500, L500.4050 ####[facility] [address] [place], [address] Glucose [Mass/Vol] 92 mg/dL Normal 70-99 [facility] Comment on above: Order Comment: . Performed By: #### L 100.0500, L500.4050 ####[facility] [address] [place], [address] Potassium [Moles/Vol] 4.6 mmol/L Normal 3.3-5.1 [facility] Comment on above: Order Comment: . Performed By: #### L 100.0500, L500.4050 ####[facility] [address] [place], [address] Sodium [Moles/Vol] 138 mmol/L Normal 133-145 [facility] Comment on above: Order Comment: . Performed By: #### L 100.0500, L500.4050 ####[facility] [address] [place], [address] T PROT 6.8 g/dL Normal 5.9-8.4 [facility] Comment on above: Order Comment: . Performed By: #### L 100.0500, L500.4050 ####[facility] [address] [place], [address] Urea nitrogen [Mass/Vol] 18 mg/dL Normal 4-19 [facility] Comment on above: Order Comment: Performed By: #### L 100.0500, L500.4050 ####[facility] [address] [place], [address] .Auto Diffon 06-14-2024 Basophil, Absolute 0.1 10 3/mcL Normal 0.0-0.3 [facility] Comment on above: Performed By: #### G FR, BMP, CBC, ANEU, ADIFF ####[address] [address] Basophils/100 WBC (Bld) 0.5 % Normal 0.0-2.5 [facility] Comment on above: Performed By: #### G FR, BMP, CBC, ANEU, ADIFF ####[address] [address] Eosinophil, Absolute 0.7 10 3/mcL Normal 0.0-0.7 [facility] Comment on above: Performed By: #### G FR, BMP, CBC, ANEU, ADIFF ####[address] [address] Eosinophils/100 WBC (Bld) 6.0 % Normal 0.0-6.0 [facility] Comment on above: Performed By: #### G FR, BMP, CBC, ANEU, ADIFF ####[address] [address] Lymphocyte, Absolute 2.6 10 3/mcL Normal 0.9-4.3 [facility] Comment on above: Performed By: #### G FR, BMP, CBC, ANEU, ADIFF ####[address] [address] Lymphocytes/100 WBC (Bld) 21.6 % Normal 20.0-40.0 [facility] Comment on above: Performed By: #### G FR, BMP, CBC, ANEU, ADIFF ####[address] [address] Monocyte, Absolute 1.1 10 3/mcL Normal 0.1-1.4 [facility] Comment on above: Performed By: #### G FR, BMP, CBC, ANEU, ADIFF ####[place] [address] [place] [address] Monocytes/100 WBC (Bld) 9.5 % Normal 2.0-13.0 [facility] Comment on above: Performed By: #### G FR, BMP, CBC, ANEU, ADIFF ####[place] [address] [place] [address] Neutrophils/100 WBC (Bld) 62.4 % Normal 50.0-75.0 [facility] Comment on above: Performed By: #### G FR, BMP, CBC, ANEU, ADIFF ####[address] [address] .GFRon 06-14-2024 GFR/1.73 sq M.predicted among non-blacks MDRD (S/P/Bld) [Vol rate/Area] mL/min/{1.73_m2} Normal [facility] Comment on above: Result Comment: Stag [...] #### G FR, BMP, CBC, ANEU, ADIFF ####[place] [address] [place] [address] .NEUABSon 06-14-2024 Neutrophil, Absolute 7.4 10 3/mcL Normal 2.3-8.1 [facility] Comment on above: Performed By: #### G FR, BMP, CBC, ANEU, ADIFF ####[place] [address] [place] [address] BMPon 06-14-2024 CO2 [Moles/Vol] mmol/L Critically abnormal 22-32 [facility] Comment on above: Performed By: #### G FR, BMP, CBC, ANEU, ADIFF ####[place] [id number] Electrolyte Balance Unable to Calculate Normal 4.0-15. 0 [facility] Comment on above: Result Comment: Unab le to calculate this test result accurately. Results used to calculate this test are outside the reportable range. Performed By: #### G FR, BMP, CBC, ANEU, ADIFF ####[place] [address] BUN/Creatinine Ratio 34.8 ratio High 10.0-22.0 [facility] Comment on above: Performed By: #### G FR, BMP, CBC, ANEU, ADIFF ####[address] [address] Calcium [Mass/Vol] 9.7 mg/dL Normal 8.7-10.[address] [facility] Comment on above: Performed By: #### G FR, BMP, CBC, ANEU, ADIFF ####[address] [address] Chloride [Moles/Vol] 91 mmol/L Low 98-110 [facility] Comment on above: Performed By: #### G FR, BMP, CBC, ANEU, ADIFF ####[place] [address] Creatinine [Mass/Vol] 0.46 mg/dL Low 0.50-1.20 [facility] Comment on above: Result Comment: Test ing performed on ApnaPaisa analyzer using enzymatic creatinine methodology. Performed By: #### G FR, BMP, CBC, ANEU, ADIFF ####[address] [address] Glucose [Mass/Vol] 90 mg/dL Normal 70-[address] [facility] Comment on above: Performed By: #### G FR, BMP, CBC, ANEU, ADIFF ####[address] [address] Potassium [Moles/Vol] 4.2 mmol/L Normal 3.5-5.0 [facility] Comment on above: Performed By: #### G FR, BMP, CBC, ANEU, ADIFF ####[place] [address] Sodium [Moles/Vol] 137 mmol/L Normal 136-[address] [facility] Comment on above: Performed By: #### G FR, BMP, CBC, ANEU, ADIFF ####[place] [address] Urea nitrogen [Mass/Vol] 16.0 mg/dL Normal 8.0-22.0 [facility] Comment on above: Performed By: #### G FR, BMP, CBC, ANEU, ADIFF ####[place] [address] CBCon 06-14-2024 Erythrocyte distribution width (RBC) [Ratio] 15.4 % Normal 11.5-15.5 [facility] Comment on above: Performed By: #### G FR, BMP, CBC, ANEU, ADIFF ####[place] [address] Hematocrit (Bld) [Volume fraction] 36.3 % Normal 34.0-46.0 [facility] Comment on above: Performed By: #### G FR, BMP, CBC, ANEU, ADIFF ####[place] [address] Hgb 11.9 G/dL Low 12.0-16.0 [facility] Comment on above: Performed By: #### G FR, BMP, CBC, ANEU, ADIFF ####[place] [address] MCH (RBC) [Entitic mass] 32.6 pg Normal 27.0-33.0 [facility] Comment on above: Performed By: #### G FR, BMP, CBC, ANEU, ADIFF ####[place] [address] MCHC 32.8 G/dL Normal 32.0-36.0 [facility] Comment on above: Performed By: #### G FR, BMP, CBC, ANEU, ADIFF ####[place] [address] MCV (RBC) [Entitic vol] 99.3 fL High 80.0-99.0 [facility] Comment on above: Performed By: #### G FR, BMP, CBC, ANEU, ADIFF ####[place] [address] Platelet 234 10 3/mcL Normal 150-450 [facility] Comment on above: Performed By: #### G FR, BMP, CBC, ANEU, ADIFF ####[place] [address] Platelet mean volume (Bld) [Entitic vol] 8.4 fL Normal 6.6-10.5 [facility] Comment on above: Performed By: #### G FR, BMP, CBC, ANEU, ADIFF ####[place] [address] RBC 3.66 10 6/mcL Low 4.10-5.30 [facility] Comment on above: Performed By: #### G FR, BMP, CBC, ANEU, ADIFF ####[place] [address] WBC 11.9 10 3/mcL High 4.5-10.8 [facility] Comment on above: Performed By: #### G FR, BMP, CBC, ANEU, ADIFF ####[place] [address] .Auto Diffon 06-07-2024 Basophil, Absolute 0.0 10 3/mcL Normal 0.0-0.3 [facility] Comment on above: Performed By: #### A DAISY, BMP, CBC, ADIFF, GFR ####[place] [address] Basophils/100 WBC (Bld) 0.2 % Normal 0.0-2.5 [facility] Comment on above: Performed By: #### A DAISY, BMP, CBC, ADIFF, GFR ####[place] [address] Eosinophil, Absolute 0.5 10 3/mcL Normal 0.0-0.7 [facility] Comment on above: Performed By: #### A DAISY, BMP, CBC, ADIFF, GFR ####[address] [address] Eosinophils/100 WBC (Bld) 5.0 % Normal 0.0-6.0 [facility] Comment on above: Performed By: #### A DAISY, BMP, CBC, ADIFF, GFR ####[address] [address] Lymphocyte, Absolute 1.1 10 3/mcL Normal 0.9-4.3 [facility] Comment on above: Performed By: #### A DAISY, BMP, CBC, ADIFF, GFR ####[address] [address] Lymphocytes/100 WBC (Bld) 11.3 % Low 20.0-40.0 [facility] Comment on above: Performed By: #### A DAISY, BMP, CBC, ADIFF, GFR ####[address] [address] Monocyte, Absolute 0.9 10 3/mcL Normal 0.1-1.4 [facility] Comment on above: Performed By: #### A DAISY, BMP, CBC, ADIFF, GFR ####[address] [address] Monocytes/100 WBC (Bld) 8.7 % Normal 2.0-13.0 [facility] Comment on above: Performed By: #### A DAISY, BMP, CBC, ADIFF, GFR ####[address] [address] Neutrophils/100 WBC (Bld) 74.8 % Normal 50.0-75.0 [facility] Comment on above: Performed By: #### A DAISY, BMP, CBC, ADIFF, GFR ####[address] [address] .GFRon 06-07-2024 GFR/1.73 sq M.predicted among non-blacks MDRD (S/P/Bld) [Vol rate/Area] mL/min/{1.73_m2} Normal [facility] Comment on above: Result Comment: Stag [...] #### A DAISY, BMP, CBC, ADIFF, GFR ####[address] [address] .NEUABSon 06-07-2024 Neutrophil, Absolute 7.5 10 3/mcL Normal 2.3-8.1 [facility] Comment on above: Performed By: #### A DAISY, BMP, CBC, ADIFF, GFR ####[place] [address] BMPon 06-07-2024 CO2 [Moles/Vol] mmol/L Critically abnormal 22-32 [facility] Comment on above: Performed By: #### A DAISY, BMP, CBC, ADIFF, GFR ####[place] [address] Electrolyte Balance Unable to Calculate Normal 4.0-15. 0 [facility] Comment on above: Result Comment: Unab le to calculate this test result accurately. Results used to calculate this test are outside the reportable range. Performed By: #### A DAISY, BMP, CBC, ADIFF, GFR ####[place] [address] BUN/Creatinine Ratio 31.4 ratio High 10.0-22.0 [facility] Comment on above: Performed By: #### A DAISY, BMP, CBC, ADIFF, GFR ####[place] [address] Calcium [Mass/Vol] 9.3 mg/dL Normal 8.7-10.[address] [facility] Comment on above: Performed By: #### A DAISY, BMP, CBC, ADIFF, GFR ####[place] [id number] Chloride [Moles/Vol] 92 mmol/L Low 98-110 [facility] Comment on above: Performed By: #### A DAISY, BMP, CBC, ADIFF, GFR ####[address] [address] Creatinine [Mass/Vol] 0.35 mg/dL Low 0.50-1.20 [facility] Comment on above: Result Comment: Test ing performed on ApnaPaisa analyzer using enzymatic creatinine methodology. Performed By: #### A DAISY, BMP, CBC, ADIFF, GFR ####[address] [address] Glucose [Mass/Vol] 83 mg/dL Normal 70-[address] [facility] Comment on above: Performed By: #### A DAISY, BMP, CBC, ADIFF, GFR ####[address] [address] Potassium [Moles/Vol] 4.4 mmol/L Normal 3.5-5.0 [facility] Comment on above: Performed By: #### A DAISY, BMP, CBC, ADIFF, GFR ####[place] [address] Sodium [Moles/Vol] 136 mmol/L Normal 136-[address] [facility] Comment on above: Performed By: #### A DAISY, BMP, CBC, ADIFF, GFR ####[place] [address] Urea nitrogen [Mass/Vol] 11.0 mg/dL Normal 8.0-22.0 [facility] Comment on above: Performed By: #### A DAISY, BMP, CBC, ADIFF, GFR ####[address] [address] CBCon 06-07-2024 Erythrocyte distribution width (RBC) [Ratio] 15.2 % Normal 11.5-15.5 [facility] Comment on above: Performed By: #### A DAISY, BMP, CBC, ADIFF, GFR ####[place] [address] Hematocrit (Bld) [Volume fraction] 35.8 % Normal 34.0-46.0 [facility] Comment on above: Performed By: #### A DAISY, BMP, CBC, ADIFF, GFR ####[place] [address] Hgb 11.4 G/dL Low 12.0-16.0 [facility] Comment on above: Performed By: #### A DAISY, BMP, CBC, ADIFF, GFR ####[place] [address] MCH (RBC) [Entitic mass] 31.5 pg Normal 27.0-33.0 [facility] Comment on above: Performed By: #### A DAISY, BMP, CBC, ADIFF, GFR ####[place] [address] MCHC 31.9 G/dL Low 32.0-36.0 [facility] Comment on above: Performed By: #### A DAISY, BMP, CBC, ADIFF, GFR ####[place] [address] MCV (RBC) [Entitic vol] 98.7 fL Normal 80.0-99.0 [facility] Comment on above: Performed By: #### A DAISY, BMP, CBC, ADIFF, GFR ####[place] [address] Platelet 185 10 3/mcL Normal 150-450 [facility] Comment on above: Performed By: #### A DAISY, BMP, CBC, ADIFF, GFR ####[place] [address] Platelet mean volume (Bld) [Entitic vol] 9.0 fL Normal 6.6-10.5 [facility] Comment on above: Performed By: #### A DAISY, BMP, CBC, ADIFF, GFR ####[place] [address] RBC 3.63 10 6/mcL Low 4.10-5.30 [facility] Comment on above: Performed By: #### A DAISY, BMP, CBC, ADIFF, GFR ####[place] [address] WBC 10.0 10 3/mcL Normal 4.5-10.8 [facility] Comment on above: Performed By: #### A DAISY, BMP, CBC, ADIFF, GFR ####[facility] [place] [address] Tal 06-03-2024 CNPN Telephone (INTMWS) SIA ABDUL ([id number]) 1980 F Date Time Provider Department 06/03/24 MARILEE THAKUR INTMWS During your visit today, we recorded the following information about you: Pepper Walsh RN 06/03/2024 4:12 PM Signed Clarence Calderon calling with [facility] to update provider that due [...] Recertification [Other] Prescriptions as of 06/03/2024 - awkcarn-zzepoziit-djiq min D3 (OYSTER SHELL CALCIUM-VITAMIN D) 500 [...] 1 tablet by mouth once daily. - Ozchf-2-ENB-EPA-Fish Oil 1,000 mg (120 mg-180 mg) cap [...] [E03.9] 12/14/2014 (more content not included)... Normal [facility] .Auto Diffon 05-31-2024 Basophil, Absolute 0.1 10 3/mcL Normal 0.0-0.3 [facility] Comment on above: Performed By: #### A DIFF, ANEU, CBC, GFR, BMP ####[address] [address] Basophils/100 WBC (Bld) 0.7 % Normal 0.0-2.5 [facility] Comment on above: Performed By: #### A DIFF, ANEU, CBC, GFR, BMP ####[address] [address] Eosinophil, Absolute 0.6 10 3/mcL Normal 0.0-0.7 [facility] MAIN Comment on above: Performed By: #### A DIFF, ANEU, CBC, GFR, BMP ####[address] [address] Eosinophils/100 WBC (Bld) 5.5 % Normal 0.0-6.0 [facility] MA[facility] Comment on above: Performed By: #### A DIFF, ANEU, CBC, GFR, BMP ####[address] [address] Lymphocyte, Absolute 1.0 10 3/mcL Normal 0.9-4.3 [facility]IN Comment on above: Performed By: #### A DIFF, ANEU, CBC, GFR, BMP ####[address] [address] Lymphocytes/100 WBC (Bld) 8.9 % Low 20.0-40.0 [facility] MA[facility] Comment on above: Performed By: #### A DIFF, ANEU, CBC, GFR, BMP ####[address] [address] Monocyte, Absolute 1.0 10 3/mcL Normal 0.1-1.4 [facility] Comment on above: Performed By: #### A DIFF, ANEU, CBC, GFR, BMP ####[address] [address] Monocytes/100 WBC (Bld) 9.3 % Normal 2.0-13.0 [facility] MA[facility] Comment on above: Performed By: #### A DIFF, ANEU, CBC, GFR, BMP ####[place] [id number] [place] [id number] Neutrophils/100 WBC (Bld) 75.6 % High 50.0-75.0 [facility] MA[facility] Comment on above: Performed By: #### A DIFF, ANEU, CBC, GFR, BMP ####[address] [address] .GFRon 05-31-2024 GFR/1.73 sq M.predicted among non-blacks MDRD (S/P/Bld) [Vol rate/Area] mL/min/{1.73_m2} Normal [facility] [facility] Comment on above: Result Comment: Stag [...] #### A DIFF, ANEU, CBC, GFR, BMP ####[address] [address] .NEUABSon 05-31-2024 Neutrophil, Absolute 8.3 10 3/mcL High 2.3-8.1 [facility] MAIN Comment on above: Performed By: #### A DIFF, ANEU, CBC, GFR, BMP ####[address] [address] BMPon 05-31-2024 BUN/Creatinine Ratio 35.7 ratio High 10.0-22.0 [facility] Comment on above: Performed By: #### A DIFF, ANEU, CBC, GFR, BMP ####[address] [address] Creatinine [Mass/Vol] 0.42 mg/dL Low 0.50-1.20 [facility] MAIN Comment on above: Result Comment: Test ing performed on ApnaPaisa analyzer using enzymatic creatinine methodology. Performed By: #### A DIFF, ANEU, CBC, GFR, BMP ####[address] [address] CO2 [Moles/Vol] mmol/L Critically abnormal 22-32 [facility] MAIN Comment on above: Performed By: #### A DIFF, ANEU, CBC, GFR, BMP ####[address] [address] Electrolyte Balance Unable to Calculate Normal 4.0-15. 0 [facility] Comment on above: Result Comment: Unab le to calculate this test result accurately. Results used to calculate this test are outside the reportable range. Performed By: #### A DIFF, ANEU, CBC, GFR, BMP ####[address] [address] Calcium [Mass/Vol] 8.7 mg/dL Normal 8.7-10.[address] [facility] MAIN Comment on above: Performed By: #### A DIFF, ANEU, CBC, GFR, BMP ####[address] [address] Chloride [Moles/Vol] 95 mmol/L Low 98-110 [facility] Comment on above: Performed By: #### A DIFF, ANEU, CBC, GFR, BMP ####[address] [address] Glucose [Mass/Vol] 100 mg/dL Normal 70-[address] [facility] MA[facility] Comment on above: Performed By: #### A DIFF, ANEU, CBC, GFR, BMP ####[address] [address] Potassium [Moles/Vol] 4.8 mmol/L Normal 3.5-5.0 [facility] Comment on above: Performed By: #### A DIFF, ANEU, CBC, GFR, BMP ####[address] [address] Sodium [Moles/Vol] 138 mmol/L Normal 136-[address] [facility] MA[facility] Comment on above: Performed By: #### A DIFF, ANEU, CBC, GFR, BMP ####[place] [address] Urea nitrogen [Mass/Vol] 15.0 mg/dL Normal 8.0-22.0 [facility] Comment on above: Performed By: #### A DIFF, ANEU, CBC, GFR, BMP ####[place] [address] CBCon 05-31-2024 Erythrocyte distribution width (RBC) [Ratio] 16.3 % High 11.5-15.5 [facility] MA[facility] Comment on above: Performed By: #### A DIFF, ANEU, CBC, GFR, BMP ####[place] [address] Hematocrit (Bld) [Volume fraction] 33.3 % Low 34.0-46.0 [facility] MA[facility] Comment on above: Performed By: #### A DIFF, ANEU, CBC, GFR, BMP ####[place] [address] Hgb 10.6 G/dL Low 12.0-16.0 [facility] MA[facility] Comment on above: Performed By: #### A DIFF, ANEU, CBC, GFR, BMP ####[place] [address] MCH (RBC) [Entitic mass] 32.6 pg Normal 27.0-33.0 [facility] Comment on above: Performed By: #### A DIFF, ANEU, CBC, GFR, BMP ####[place] [address] MCHC 31.9 G/dL Low 32.0-36.0 [facility] MA[facility] Comment on above: Performed By: #### A DIFF, ANEU, CBC, GFR, BMP ####[place] [address] MCV (RBC) [Entitic vol] 102.1 fL High 80.0-99.0 [facility] MA[facility] Comment on above: Performed By: #### A DIFF, ANEU, CBC, GFR, BMP ####[place] [address] Platelet 177 10 3/mcL Normal 150-450 [facility] MA[facility] Comment on above: Performed By: #### A DIFF, ANEU, CBC, GFR, BMP ####[place] [address] Platelet mean volume (Bld) [Entitic vol] 9.0 fL Normal 6.6-10.5 [facility] MA[facility] Comment on above: Performed By: #### A DIFF, ANEU, CBC, GFR, BMP ####[place] [address] RBC 3.26 10 6/mcL Low 4.10-5.30 [facility] MA[facility] Comment on above: Performed By: #### A DIFF, ANEU, CBC, GFR, BMP ####[place] [address] WBC 11.0 10 3/mcL High 4.5-10.8 [facility] MA[facility] Comment on above: Performed By: #### A DIFF, ANEU, CBC, GFR, BMP ####[place] [address] .Auto Diffon 05-30-2024 Basophil, Absolute 0.1 10 3/mcL Normal 0.0-0.3 [facility] MA[facility] Comment on above: Performed By: #### G FR, CBC, BMP, ADIFF, ANEU, MG, VBG ####[place] [address] Basophils/100 WBC (Bld) 0.8 % Normal 0.0-2.5 [facility] MA[facility] Comment on above: Performed By: #### G FR, CBC, BMP, ADIFF, ANEU, MG, VBG ####[place] [address] Eosinophil, Absolute 0.5 10 3/mcL Normal 0.0-0.7 [facility] MAIN Comment on above: Performed By: #### G FR, CBC, BMP, ADIFF, ANEU, MG, VBG ####[place] [address] Eosinophils/100 WBC (Bld) 4.2 % Normal 0.0-6.0 [facility] MA[facility] Comment on above: Performed By: #### G FR, CBC, BMP, ADIFF, ANEU, MG, VBG ####[address] [address] Lymphocyte, Absolute 1.4 10 3/mcL Normal 0.9-4.3 [facility] MAIN Comment on above: Performed By: #### G FR, CBC, BMP, ADIFF, ANEU, MG, VBG ####[address] [address] Lymphocytes/100 WBC (Bld) 12.4 % Low 20.0-40.0 [facility] MA[facility] Comment on above: Performed By: #### G FR, CBC, BMP, ADIFF, ANEU, MG, VBG ####[address] [address] Monocyte, Absolute 1.1 10 3/mcL Normal 0.1-1.4 [facility] Comment on above: Performed By: #### G FR, CBC, BMP, ADIFF, ANEU, MG, VBG ####[address] [address] Monocytes/100 WBC (Bld) 9.2 % Normal 2.0-13.0 [facility] MA[facility] Comment on above: Performed By: #### G FR, CBC, BMP, ADIFF, ANEU, MG, VBG ####[address] [address] Neutrophils/100 WBC (Bld) 73.4 % Normal 50.0-75.0 [facility] MA[facility] Comment on above: Performed By: #### G FR, CBC, BMP, ADIFF, ANEU, MG, VBG ####[address] [address] .GFRon 05-30-2024 GFR/1.73 sq M.predicted among non-blacks MDRD (S/P/Bld) [Vol rate/Area] mL/min/{1.73_m2} Normal [facility] MAIN Comment on above: Result Comment: Stag [...] FR, CBC, BMP, ADIFF, ANEU, MG, VBG ####[place] [address] .NEUABSon 05-30-2024 Neutrophil, Absolute 8.4 10 3/mcL High 2.3-8.1 [facility] MAIN Comment on above: Performed By: #### G FR, CBC, BMP, ADIFF, ANEU, MG, VBG ####[place] [address] BMPon 05-30-2024 BUN/Creatinine Ratio 26.5 ratio High 10.0-22.0 [facility] Comment on above: Performed By: #### G FR, CBC, BMP, ADIFF, ANEU, MG, VBG ####[place] [address] Calcium [Mass/Vol] 9.0 mg/dL Normal 8.7-10.[address] [facility] MAIN Comment on above: Performed By: #### G FR, CBC, BMP, ADIFF, ANEU, MG, VBG ####[place] [address] Chloride [Moles/Vol] 97 mmol/L Low 98-110 [facility] MA[facility] Comment on above: Performed By: #### G FR, CBC, BMP, ADIFF, ANEU, MG, VBG ####[place] [address] CO2 [Moles/Vol] 40 mmol/L Critically abnormal 22-32 [facility] MA[facility] Comment on above: Performed By: #### G FR, CBC, BMP, ADIFF, ANEU, MG, VBG ####[address] [address] Creatinine [Mass/Vol] 0.49 mg/dL Low 0.50-1.20 [facility] MAIN Comment on above: Result Comment: Test ing performed on ApnaPaisa analyzer using enzymatic creatinine methodology. Performed By: #### G FR, CBC, BMP, ADIFF, ANEU, MG, VBG ####[place] [address] Electrolyte Balance 1.0 mEq/L Low 4.0-15.[address] [facility] MAIN Comment on above: Performed By: #### G FR, CBC, BMP, ADIFF, ANEU, MG, VBG ####[place] [address] Glucose [Mass/Vol] 93 mg/dL Normal 70-[address] [facility] MAIN Comment on above: Performed By: #### G FR, CBC, BMP, ADIFF, ANEU, MG, VBG ####[place] [address] Potassium [Moles/Vol] 4.7 mmol/L Normal 3.5-5.0 [facility] MA[facility] Comment on above: Performed By: #### G FR, CBC, BMP, ADIFF, ANEU, MG, VBG ####[place] [address] Sodium [Moles/Vol] 138 mmol/L Normal 136-[address] [facility] MA[facility] Comment on above: Performed By: #### G FR, CBC, BMP, ADIFF, ANEU, MG, VBG ####[place] [address] Urea nitrogen [Mass/Vol] 13.0 mg/dL Normal 8.0-22.0 [facility] MA[facility] Comment on above: Performed By: #### G FR, CBC, BMP, ADIFF, ANEU, MG, VBG ####[place] [address] CBCon 05-30-2024 Erythrocyte distribution width (RBC) [Ratio] 16.2 % High 11.5-15.5 [facility] MAIN Comment on above: Order Comment: clott ed, recollect Performed By: #### G FR, CBC, BMP, ADIFF, ANEU, MG, VBG ####[place] [address] Hematocrit (Bld) [Volume fraction] 33.4 % Low 34.0-46.0 [facility] MAIN Comment on above: Order Comment: clott ed, recollect Performed By: #### G FR, CBC, BMP, ADIFF, ANEU, MG, VBG ####[place] [address] Hgb 10.5 G/dL Low 12.0-16.0 [facility] MA[facility] Comment on above: Order Comment: clott ed, recollect Performed By: #### G FR, CBC, BMP, ADIFF, ANEU, MG, VBG ####[place] [address] MCH (RBC) [Entitic mass] 32.5 pg Normal 27.0-33.0 [facility] MA[facility] Comment on above: Order Comment: clott ed, recollect Performed By: #### G FR, CBC, BMP, ADIFF, ANEU, MG, VBG ####[place] [address] MCHC 31.4 G/dL Low 32.0-36.0 [facility] MA[facility] Comment on above: Order Comment: clott ed, recollect Performed By: #### G FR, CBC, BMP, ADIFF, ANEU, MG, VBG ####[place] [address] MCV (RBC) [Entitic vol] 103.5 fL High 80.0-99.0 [facility] MA[facility] Comment on above: Order Comment: clott ed, recollect Performed By: #### G FR, CBC, BMP, ADIFF, ANEU, MG, VBG ####[place] [address] Platelet 161 10 3/mcL Normal 150-450 [facility] MA[facility] Comment on above: Order Comment: clott ed, recollect Performed By: #### G FR, CBC, BMP, ADIFF, ANEU, MG, VBG ####[place] [address] Platelet mean volume (Bld) [Entitic vol] 9.4 fL Normal 6.6-10.5 [facility] MA[facility] Comment on above: Order Comment: clott ed, recollect Performed By: #### G FR, CBC, BMP, ADIFF, ANEU, MG, VBG ####[place] [id number] [place] [address] RBC 3.23 10 6/mcL Low 4.10-5.30 [facility] MAIN Comment on above: Order Comment: clott ed, recollect Performed By: #### G FR, CBC, BMP, ADIFF, ANEU, MG, VBG ####[place] [address] WBC 11.4 10 3/mcL High 4.5-10.8 [facility] MA[facility] Comment on above: Order Comment: clott ed, recollect Performed By: #### G FR, CBC, BMP, ADIFF, ANEU, MG, VBG ####[place] [address] LABORATORYOrdered By: SYSTEM SYSTEM on 05-30-2024 Basophils [...] above: Interpretive Data: T esting performed on ApnaPaisa analyzer using enzymatic creatinine methodology. Electrolyte Balance [...] 05-30-2024 Magnesium [Mass/Vol] 1.9 mg/dL Normal 1.6-2.4 [facility] MAIN Comment on above: Performed By: #### G FR, CBC, BMP, ADIFF, ANEU, MG, VBG ####[facility] [place] [address] VBGon 05-30-2024 BE Venous 14.4 mmol/L High -3.0-3.0 [facility] MAIN Comment on above: Order Comment: vrb- called critical TCO2 to RN Kody Desai 05/30/2024 04:02:46 EDT SAS Performed By: #### G FR, CBC, BMP, ADIFF, ANEU, MG, VBG ####[place] [address] [place] [address] CO2 [Moles/Vol] 47.4 mmol/L Critically abnormal 22.0-32.0 [facility] MAIN Comment on above: Order Comment: vrb- called critical TCO2 to RN Kody Desai 05/30/2024 04:02:46 EDT SAS Performed By: #### G FR, CBC, BMP, ADIFF, ANEU, MG, VBG ####[address] [address] HCO3 (Bld) [Moles/Vol] 44.5 mmol/L High 21.0-30.0 [facility] MA[facility] Comment on above: Order Comment: vrb- called critical TCO2 to RN Kody Desai 05/30/2024 04:02:46 EDT SAS Performed By: #### G FR, CBC, BMP, ADIFF, ANEU, MG, VBG ####[address] [address] Oxygen saturation in Blood 92.0 % High 70.0-75.0 [facility] MA[facility] Comment on above: Order Comment: vrb- called critical TCO2 to RN Kody Desai 05/30/2024 04:02:46 EDT SAS Performed By: #### G FR, CBC, BMP, ADIFF, ANEU, MG, VBG ####[place] [address] [place] [address] pCO2 Satish 94.5 mmHg High 41.0-51.0 [facility] MAIN Comment on above: Order Comment: vrb- called critical TCO2 to RN Kody Desai 05/30/2024 04:02:46 EDT SAS Performed By: #### G FR, CBC, BMP, ADIFF, ANEU, MG, VBG ####[place] [address] [place] [address] pH Venous 7.291 Low 7.380-7.460 [facility] MAIN Comment on above: Order Comment: vrb- called critical TCO2 to RN Kody Desai 05/30/2024 04:02:46 EDT SAS Performed By: #### G FR, CBC, BMP, ADIFF, ANEU, MG, VBG ####[address] [address] pO2 Satish 69.4 mmHg High 35.0-40.0 [facility] MA[facility] Comment on above: Order Comment: vrb- called critical TCO2 to RN Kody Desai 05/30/2024 04:02:46 EDT SAS Performed By: #### G FR, CBC, BMP, ADIFF, ANEU, MG, VBG ####[address] [address] XR CHEST 1 VIEWon 05-30-2024 XR CHEST 1 VIEW Normal [facility] MA[facility] .Auto Diffon 05-29-2024 Basophil, Absolute 0.1 10 3/mcL Normal 0.0-0.3 [facility] Comment on above: Performed By: #### A DAISY, GFR, MG, CBC, ADIFF, BMP ####[address] [address] Basophils/100 WBC (Bld) 0.9 % Normal 0.0-2.5 [facility] MA[facility] Comment on above: Performed By: #### A DAISY, GFR, MG, CBC, ADIFF, BMP ####[address] [address] Eosinophil, Absolute 0.7 10 3/mcL Normal 0.0-0.7 [facility] MAIN Comment on above: Performed By: #### A DAISY, GFR, MG, CBC, ADIFF, BMP ####[address] [address] Eosinophils/100 WBC (Bld) 5.3 % Normal 0.0-6.0 [facility] Comment on above: Performed By: #### A DAISY, GFR, MG, CBC, ADIFF, BMP ####[address] [address] Lymphocyte, Absolute 2.0 10 3/mcL Normal 0.9-4.3 [facility] Comment on above: Performed By: #### A DAISY, GFR, MG, CBC, ADIFF, BMP ####[address] [address] Lymphocytes/100 WBC (Bld) 16.0 % Low 20.0-40.0 [facility] Comment on above: Performed By: #### A DAISY, GFR, MG, CBC, ADIFF, BMP ####[address] [address] Monocyte, Absolute 1.2 10 3/mcL Normal 0.1-1.4 [facility] Comment on above: Performed By: #### A DAISY, GFR, MG, CBC, ADIFF, BMP ####[address] [address] Monocytes/100 WBC (Bld) 9.8 % Normal 2.0-13.0 [facility] Comment on above: Performed By: #### A DAISY, GFR, MG, CBC, ADIFF, BMP ####[address] [address] Neutrophils/100 WBC (Bld) 68.0 % Normal 50.0-75.0 [facility] MA[facility] Comment on above: Performed By: #### A DAISY, GFR, MG, CBC, ADIFF, BMP ####[address] [address] .GFRon 05-29-2024 GFR/1.73 sq M.predicted among non-blacks MDRD (S/P/Bld) [Vol rate/Area] mL/min/{1.73_m2} Normal [facility] MAIN Comment on above: Result Comment: Stag [...] A DAISY, GFR, MG, CBC, ADIFF, BMP ####[address] [address] .NEUABSon 05-29-2024 Neutrophil, Absolute 8.4 10 3/mcL High 2.3-8.1 [facility] Comment on above: Performed By: #### A DAISY, GFR, MG, CBC, ADIFF, BMP ####[place] [address] BMPon 05-29-2024 BUN/Creatinine Ratio 29.8 ratio High 10.0-22.0 [facility] Comment on above: Performed By: #### A DAISY, GFR, MG, CBC, ADIFF, BMP ####[place] [address] Calcium [Mass/Vol] 9.2 mg/dL Normal 8.7-10.[address] [facility] Comment on above: Performed By: #### A DAISY, GFR, MG, CBC, ADIFF, BMP ####[place] [address] Chloride [Moles/Vol] 97 mmol/L Low 98-110 [facility] Comment on above: Performed By: #### A DAISY, GFR, MG, CBC, ADIFF, BMP ####[place] [address] CO2 [Moles/Vol] 37 mmol/L High 22-32 [facility] Comment on above: Performed By: #### A DAISY, GFR, MG, CBC, ADIFF, BMP ####[place] [address] Creatinine [Mass/Vol] 0.47 mg/dL Low 0.50-1.20 [facility] Comment on above: Result Comment: Test ing performed on ApnaPaisa analyzer using enzymatic creatinine methodology. Performed By: #### A DAISY, GFR, MG, CBC, ADIFF, BMP ####[place] [address] Electrolyte Balance 5.0 mEq/L Normal 4.0-15.[address] [facility] Comment on above: Performed By: #### A DAISY, GFR, MG, CBC, ADIFF, BMP ####[place] [address] Glucose [Mass/Vol] 88 mg/dL Normal 70-[address] [facility] MA[facility] Comment on above: Performed By: #### A DAISY, GFR, MG, CBC, ADIFF, BMP ####[place] [address] Potassium [Moles/Vol] 5.3 mmol/L High 3.5-5.0 [facility] Comment on above: Result Comment: Spec imen slightly hemolyzed. Performed By: #### A DAISY, GFR, MG, CBC, ADIFF, BMP ####[place] [address] Sodium [Moles/Vol] 139 mmol/L Normal 136-[address] [facility] Comment on above: Performed By: #### A DAISY, GFR, MG, CBC, ADIFF, BMP ####[place] [address] Urea nitrogen [Mass/Vol] 14.0 mg/dL Normal 8.0-22.0 [facility] Comment on above: Performed By: #### A DAISY, GFR, MG, CBC, ADIFF, BMP ####[place] [address] CBCon 05-29-2024 Erythrocyte distribution width (RBC) [Ratio] 16.9 % High 11.5-15.5 [facility] Comment on above: Performed By: #### A DAISY, GFR, MG, CBC, ADIFF, BMP ####[place] [address] Hematocrit (Bld) [Volume fraction] 31.9 % Low 34.0-46.0 [facility] Comment on above: Performed By: #### A DAISY, GFR, MG, CBC, ADIFF, BMP ####[place] [address] Hgb 10.1 G/dL Low 12.0-16.0 [facility] Comment on above: Performed By: #### A DAISY, GFR, MG, CBC, ADIFF, BMP ####[place] [address] MCH (RBC) [Entitic mass] 32.9 pg Normal 27.0-33.0 [facility] Comment on above: Performed By: #### A DAISY, GFR, MG, CBC, ADIFF, BMP ####[place] [address] MCHC 31.7 G/dL Low 32.0-36.0 [facility] Comment on above: Performed By: #### A DAISY, GFR, MG, CBC, ADIFF, BMP ####[place] [address] MCV (RBC) [Entitic vol] 103.8 fL High 80.0-99.0 [facility] Comment on above: Performed By: #### A DAISY, GFR, MG, CBC, ADIFF, BMP ####[place] [address] Platelet 173 10 3/mcL Normal 150-450 [facility] Comment on above: Performed By: #### A DAISY, GFR, MG, CBC, ADIFF, BMP ####[place] [address] Platelet mean volume (Bld) [Entitic vol] 10.1 fL Normal 6.6-10.5 [facility] Comment on above: Performed By: #### A DAISY, GFR, MG, CBC, ADIFF, BMP ####[place] [address] RBC 3.07 10 6/mcL Low 4.10-5.30 [facility] Comment on above: Performed By: #### A DAISY, GFR, MG, CBC, ADIFF, BMP ####[place] [address] WBC 12.4 10 3/mcL High 4.5-10.8 [facility] Comment on above: Performed By: #### A DAISY, GFR, MG, CBC, ADIFF, BMP ####[place] [address] LABORATORYOrdered By: SYSTEM SYSTEM on 05-29-2024 Basophils [...] above: Interpretive Data: T esting performed on ApnaPaisa analyzer using enzymatic creatinine methodology. Electrolyte Balance [...] 05-29-2024 Magnesium [Mass/Vol] 2.0 mg/dL Normal 1.6-2.4 [facility] Comment on above: Performed By: #### A DAISY, GFR, MG, CBC, ADIFF, BMP ####[address] [address] .Auto Diffon 05-28-2024 Basophil, Absolute 0.0 10 3/mcL Normal 0.0-0.3 [facility] Comment on above: Performed By: #### V BG, GFR, ADIFF, MG, CBC, BMP, ANEU ####[place] [address] Basophils/100 WBC (Bld) 0.4 % Normal 0.0-2.5 [facility] Comment on above: Performed By: #### V BG, GFR, ADIFF, MG, CBC, BMP, ANEU ####[place] [address] Eosinophil, Absolute 0.6 10 3/mcL Normal 0.0-0.7 [facility] Comment on above: Performed By: #### V BG, GFR, ADIFF, MG, CBC, BMP, ANEU ####[place] [address] Eosinophils/100 WBC (Bld) 5.6 % Normal 0.0-6.0 [facility] Comment on above: Performed By: #### V BG, GFR, ADIFF, MG, CBC, BMP, ANEU ####[place] [address] Lymphocyte, Absolute 1.2 10 3/mcL Normal 0.9-4.3 [facility] Comment on above: Performed By: #### V BG, GFR, ADIFF, MG, CBC, BMP, ANEU ####[place] [address] Lymphocytes/100 WBC (Bld) 11.7 % Low 20.0-40.0 [facility] Comment on above: Performed By: #### V BG, GFR, ADIFF, MG, CBC, BMP, ANEU ####[address] [address] Monocyte, Absolute 0.9 10 3/mcL Normal 0.1-1.4 [facility] Comment on above: Performed By: #### V BG, GFR, ADIFF, MG, CBC, BMP, ANEU ####[address] [address] Monocytes/100 WBC (Bld) 8.2 % Normal 2.0-13.0 [facility] Comment on above: Performed By: #### V BG, GFR, ADIFF, MG, CBC, BMP, ANEU ####[address] [address] Neutrophils/100 WBC (Bld) 74.1 % Normal 50.0-75.0 [facility] Comment on above: Performed By: #### V BG, GFR, ADIFF, MG, CBC, BMP, ANEU ####[place] [address] .GFRon 05-28-2024 Estimated Glomerular Filtration Rate 115 ml/min/1.73sqm Normal [facility] Comment on above: Result Comment: Stag [...] BG, GFR, ADIFF, MG, CBC, BMP, ANEU ####[place] [address] .NEUABSon 05-28-2024 Neutrophil, Absolute 7.7 10 3/mcL Normal 2.3-8.1 [facility] Comment on above: Performed By: #### V BG, GFR, ADIFF, MG, CBC, BMP, ANEU ####[address] [address] BMPon 05-28-2024 CO2 [Moles/Vol] mmol/L Critically abnormal 22-32 [facility] Comment on above: Performed By: #### V BG, GFR, ADIFF, MG, CBC, BMP, ANEU ####[place] [address] Electrolyte Balance Unable to Calculate Normal 4.0-15. 0 [facility] Comment on above: Result Comment: Unab le to calculate this test result accurately. Results used to calculate this test are outside the reportable range. Performed By: #### V BG, GFR, ADIFF, MG, CBC, BMP, ANEU ####[place] [address] BUN/Creatinine Ratio 36.1 ratio High 10.0-22.0 [facility] Comment on above: Performed By: #### V BG, GFR, ADIFF, MG, CBC, BMP, ANEU ####[place] [address] Calcium [Mass/Vol] 9.1 mg/dL Normal 8.7-10.[address] [facility] Comment on above: Performed By: #### V BG, GFR, ADIFF, MG, CBC, BMP, ANEU ####[place] [address] Chloride [Moles/Vol] 98 mmol/L Normal 98-110 [facility] Comment on above: Performed By: #### V BG, GFR, ADIFF, MG, CBC, BMP, ANEU ####[place] [address] Creatinine [Mass/Vol] 0.61 mg/dL Normal 0.50-1.20 [facility] Comment on above: Result Comment: Test ing performed on [employer] analyzer using enzymatic creatinine methodology. Performed By: #### V BG, GFR, ADIFF, MG, CBC, BMP, ANEU ####[place] [address] Glucose [Mass/Vol] 112 mg/dL High 70-[address] [facility] Comment on above: Performed By: #### V BG, GFR, ADIFF, MG, CBC, BMP, ANEU ####[place] [address] Potassium [Moles/Vol] 4.6 mmol/L Normal 3.5-5.0 [facility] Comment on above: Result Comment: Spec imen slightly hemolyzed. Performed By: #### V BG, GFR, ADIFF, MG, CBC, BMP, ANEU ####[place] [address] Sodium [Moles/Vol] 144 mmol/L Normal 136-[address] [facility] Comment on above: Performed By: #### V BG, GFR, ADIFF, MG, CBC, BMP, ANEU ####[place] [address] Urea nitrogen [Mass/Vol] 22.0 mg/dL Normal 8.0-22.0 [facility] Comment on above: Performed By: #### V BG, GFR, ADIFF, MG, CBC, BMP, ANEU ####[place] [address] CBCon 05-28-2024 Erythrocyte distribution width (RBC) [Ratio] 16.0 % High 11.5-15.5 [facility] Comment on above: Performed By: #### V BG, GFR, ADIFF, MG, CBC, BMP, ANEU ####[place] [address] Hematocrit (Bld) [Volume fraction] 31.4 % Low 34.0-46.0 [facility] Comment on above: Performed By: #### V BG, GFR, ADIFF, MG, CBC, BMP, ANEU ####[place] [address] Hgb 10.1 G/dL Low 12.0-16.0 [facility] Comment on above: Performed By: #### V BG, GFR, ADIFF, MG, CBC, BMP, ANEU ####[place] [address] MCH (RBC) [Entitic mass] 32.6 pg Normal 27.0-33.0 [facility] Comment on above: Performed By: #### V BG, GFR, ADIFF, MG, CBC, BMP, ANEU ####[place] [address] MCHC 32.1 G/dL Normal 32.0-36.0 [facility] Comment on above: Performed By: #### V BG, GFR, ADIFF, MG, CBC, BMP, ANEU ####[place] [address] MCV (RBC) [Entitic vol] 101.4 fL High 80.0-99.0 [facility] Comment on above: Performed By: #### V BG, GFR, ADIFF, MG, CBC, BMP, ANEU ####[place] [address] Platelet 171 10 3/mcL Normal 150-450 [facility] Comment on above: Performed By: #### V BG, GFR, ADIFF, MG, CBC, BMP, ANEU ####[place] [address] Platelet mean volume (Bld) [Entitic vol] 9.3 fL Normal 6.6-10.5 [facility] Comment on above: Performed By: #### V BG, GFR, ADIFF, MG, CBC, BMP, ANEU ####[place] [address] RBC 3.10 10 6/mcL Low 4.10-5.30 [facility] Comment on above: Performed By: #### V BG, GFR, ADIFF, MG, CBC, BMP, ANEU ####[place] [address] WBC 10.4 10 3/mcL Normal 4.5-10.8 [facility] Comment on above: Performed By: #### V BG, GFR, ADIFF, MG, CBC, BMP, ANEU ####[place] [address] LABORATORYOrdered By: SYSTEM SYSTEM on 05-28-2024 Basophils [...] above: Interpretive Data: T esting performed on ApnaPaisa analyzer using enzymatic creatinine methodology. Eosinophils (Bld) [...] 05-28-2024 Magnesium [Mass/Vol] 1.9 mg/dL Normal 1.6-2.4 [facility] Comment on above: Performed By: #### V BG, GFR, ADIFF, MG, CBC, BMP, ANEU ####[address] [address] VBGon 05-28-2024 BE Venous 13.8 mmol/L High -3.0-3.0 [facility] Comment on above: Performed By: #### V BG, GFR, ADIFF, MG, CBC, BMP, ANEU ####[address] [address] CO2 [Moles/Vol] 46.9 mmol/L Critically abnormal 22.0-32.0 [facility] Comment on above: Performed By: #### V BG, GFR, ADIFF, MG, CBC, BMP, ANEU ####[address] [address] HCO3 (Bld) [Moles/Vol] 43.9 mmol/L High 21.0-30.0 [facility] Comment on above: Performed By: #### V BG, GFR, ADIFF, MG, CBC, BMP, ANEU ####[place] [address] Oxygen saturation in Blood 93.4 % High 70.0-75.0 [facility] Comment on above: Performed By: #### V BG, GFR, ADIFF, MG, CBC, BMP, ANEU ####[place] [address] pCO2 Satish 95.9 mmHg High 41.0-51.0 [facility] Comment on above: Performed By: #### V BG, GFR, ADIFF, MG, CBC, BMP, ANEU ####[place] [address] pH Venous 7.279 Low 7.380-7.460 [facility] Comment on above: Performed By: #### V BG, GFR, ADIFF, MG, CBC, BMP, ANEU ####[place] [address] pO2 Satish 76.3 mmHg High 35.0-40.0 [facility] Comment on above: Performed By: #### V BG, GFR, ADIFF, MG, CBC, BMP, ANEU ####[place] [address] .Auto Diffon 05-27-2024 Basophil, Absolute 0.1 10 3/mcL Normal 0.0-0.3 [facility] Comment on above: Performed By: #### M G, ANEU, ADIFF, GFR, BMP, CBC ####[place] [address] Basophils/100 WBC (Bld) 0.8 % Normal 0.0-2.5 [facility] Comment on above: Performed By: #### M G, ANEU, ADIFF, GFR, BMP, CBC ####[place] [address] Eosinophil, Absolute 0.6 10 3/mcL Normal 0.0-0.7 [facility] Comment on above: Performed By: #### M G, ANEU, ADIFF, GFR, BMP, CBC ####[place] [address] Eosinophils/100 WBC (Bld) 5.9 % Normal 0.0-6.0 [facility] Comment on above: Performed By: #### M G, ANEU, ADIFF, GFR, BMP, CBC ####[address] [address] Lymphocyte, Absolute 1.5 10 3/mcL Normal 0.9-4.3 [facility] Comment on above: Performed By: #### M G, ANEU, ADIFF, GFR, BMP, CBC ####[address] [address] Lymphocytes/100 WBC (Bld) 15.4 % Low 20.0-40.0 [facility] Comment on above: Performed By: #### M G, ANEU, ADIFF, GFR, BMP, CBC ####[address] [address] Monocyte, Absolute 0.9 10 3/mcL Normal 0.1-1.4 [facility] Comment on above: Performed By: #### M G, ANEU, ADIFF, GFR, BMP, CBC ####[address] [address] Monocytes/100 WBC (Bld) 9.5 % Normal 2.0-13.0 [facility] Comment on above: Performed By: #### M G, ANEU, ADIFF, GFR, BMP, CBC ####[address] [address] Neutrophils/100 WBC (Bld) 68.4 % Normal 50.0-75.0 [facility] Comment on above: Performed By: #### M G, ANEU, ADIFF, GFR, BMP, CBC ####[address] [address] .GFRon 05-27-2024 Estimated Glomerular Filtration Rate 119 ml/min/1.73sqm Normal [facility] Comment on above: Result Comment: Stag [...] M G, ANEU, ADIFF, GFR, BMP, CBC ####[place] [id number] .NEUABSon 05-27-2024 Neutrophil, Absolute 6.7 10 3/mcL Normal 2.3-8.1 [facility] Comment on above: Performed By: #### M G, ANEU, ADIFF, GFR, BMP, CBC ####[place] [address] BMPon 05-27-2024 CO2 [Moles/Vol] mmol/L Critically abnormal 22-32 [facility] Comment on above: Performed By: #### M G, ANEU, ADIFF, GFR, BMP, CBC ####[place] [address] Electrolyte Balance Unable to Calculate Normal 4.0-15. 0 [facility] Comment on above: Result Comment: Unab le to calculate this test result accurately. Results used to calculate this test are outside the reportable range. Performed By: #### M G, ANEU, ADIFF, GFR, BMP, CBC ####[place] [address] BUN/Creatinine Ratio 37.7 ratio High 10.0-22.0 [facility] Comment on above: Performed By: #### M G, ANEU, ADIFF, GFR, BMP, CBC ####[place] [address] Calcium [Mass/Vol] 8.6 mg/dL Low 8.7-10.[address] [facility] Comment on above: Performed By: #### M G, ANEU, ADIFF, GFR, BMP, CBC ####[place] [address] Chloride [Moles/Vol] 96 mmol/L Low 98-110 [facility] Comment on above: Performed By: #### M G, ANEU, ADIFF, GFR, BMP, CBC ####[place] [address] Creatinine [Mass/Vol] 0.53 mg/dL Normal 0.50-1.20 [facility] Comment on above: Result Comment: Test ing performed on ApnaPaisa analyzer using enzymatic creatinine methodology. Performed By: #### M G, ANEU, ADIFF, GFR, BMP, CBC ####[place] [address] Glucose [Mass/Vol] 82 mg/dL Normal 70-[address] [facility] Comment on above: Performed By: #### M G, ANEU, ADIFF, GFR, BMP, CBC ####[place] [address] Potassium [Moles/Vol] 4.4 mmol/L Normal 3.5-5.0 [facility] Comment on above: Performed By: #### M G, ANEU, ADIFF, GFR, BMP, CBC ####[place] [address] Sodium [Moles/Vol] 141 mmol/L Normal 136-[address] [facility] Comment on above: Performed By: #### M G, ANEU, ADIFF, GFR, BMP, CBC ####[place] [address] Urea nitrogen [Mass/Vol] 20.0 mg/dL Normal 8.0-22.0 [facility] Comment on above: Performed By: #### M G, ANEU, ADIFF, GFR, BMP, CBC ####[address] [address] CBCon 05-27-2024 Erythrocyte distribution width (RBC) [Ratio] 15.4 % Normal 11.5-15.5 [facility] Comment on above: Performed By: #### M G, ANEU, ADIFF, GFR, BMP, CBC ####[place] [address] Hematocrit (Bld) [Volume fraction] 28.2 % Low 34.0-46.0 [facility] Comment on above: Performed By: #### M G, ANEU, ADIFF, GFR, BMP, CBC ####[place] [address] Hgb 9.5 G/dL Low 12.0-16.0 [facility] Comment on above: Performed By: #### M G, ANEU, ADIFF, GFR, BMP, CBC ####[place] [address] MCH (RBC) [Entitic mass] 33.8 pg High 27.0-33.0 [facility] Comment on above: Performed By: #### M G, ANEU, ADIFF, GFR, BMP, CBC ####[place] [address] MCHC 33.6 G/dL Normal 32.0-36.0 [facility] Comment on above: Performed By: #### M G, ANEU, ADIFF, GFR, BMP, CBC ####[place] [address] MCV (RBC) [Entitic vol] 100.6 fL High 80.0-99.0 [facility] Comment on above: Performed By: #### M G, ANEU, ADIFF, GFR, BMP, CBC ####[place] [address] Platelet 166 10 3/mcL Normal 150-450 [facility] Comment on above: Performed By: #### M G, ANEU, ADIFF, GFR, BMP, CBC ####[place] [address] Platelet mean volume (Bld) [Entitic vol] 9.2 fL Normal 6.6-10.5 [facility] Comment on above: Performed By: #### M G, ANEU, ADIFF, GFR, BMP, CBC ####[place] [address] RBC 2.81 10 6/mcL Low 4.10-5.30 [facility] Comment on above: Performed By: #### M G, ANEU, ADIFF, GFR, BMP, CBC ####[place] [address] WBC 9.9 10 3/mcL Normal 4.5-10.8 [facility] Comment on above: Performed By: #### M G, ANEU, ADIFF, GFR, BMP, CBC ####[address] [address] MGon 05-27-2024 Magnesium [Mass/Vol] 1.8 mg/dL Normal 1.6-2.4 [facility] Comment on above: Performed By: #### M G, ANEU, ADIFF, GFR, BMP, CBC ####[place] [address] US ABDOMEN COMPLETEon 2024 US ABDOMEN COMPLETE Normal [facility] .Auto Diffon 05-26-2024 Basophil, Absolute 0.1 10 3/mcL Normal 0.0-0.3 [facility] Comment on above: Performed By: #### M G, CBC, VBG, ANEU, GFR, BMP, ADIFF ####[place] [address] Basophils/100 WBC (Bld) 0.5 % Normal 0.0-2.5 [facility] Comment on above: Performed By: #### M G, CBC, VBG, ANEU, GFR, BMP, ADIFF ####[place] [address] Eosinophil, Absolute 0.7 10 3/mcL Normal 0.0-0.7 [facility] Comment on above: Performed By: #### M G, CBC, VBG, ANEU, GFR, BMP, ADIFF ####[address] [address] Eosinophils/100 WBC (Bld) 6.2 % High 0.0-6.0 [facility] Comment on above: Performed By: #### M G, CBC, VBG, ANEU, GFR, BMP, ADIFF ####[place] [address] Lymphocyte, Absolute 1.1 10 3/mcL Normal 0.9-4.3 [facility] Comment on above: Performed By: #### M G, CBC, VBG, ANEU, GFR, BMP, ADIFF ####[address] [place] [address] Lymphocytes/100 WBC (Bld) 8.9 % Low 20.0-40.0 [facility] Comment on above: Performed By: #### M G, CBC, VBG, ANEU, GFR, BMP, ADIFF ####[place] [address] [place] [address] Monocyte, Absolute 0.9 10 3/mcL Normal 0.1-1.4 [facility] Comment on above: Performed By: #### M G, CBC, VBG, ANEU, GFR, BMP, ADIFF ####[address] [address] Monocytes/100 WBC (Bld) 7.5 % Normal 2.0-13.0 [facility] Comment on above: Performed By: #### M G, CBC, VBG, ANEU, GFR, BMP, ADIFF ####[address] [address] Neutrophils/100 WBC (Bld) 76.9 % High 50.0-75.0 [facility] Comment on above: Performed By: #### M G, CBC, VBG, ANEU, GFR, BMP, ADIFF ####[address] [address] .GFRon 05-26-2024 GFR/1.73 sq M.predicted among non-blacks MDRD (S/P/Bld) [Vol rate/Area] mL/min/{1.73_m2} Normal [facility] Comment on above: Result Comment: Stag [...] G, CBC, VBG, ANEU, GFR, BMP, ADIFF ####[address] [address] .NEUABSon 05-26-2024 Neutrophil, Absolute 9.2 10 3/mcL High 2.3-8.1 [facility] Comment on above: Performed By: #### M G, CBC, VBG, ANEU, GFR, BMP, ADIFF ####[place] [id number] BMPon 05-26-2024 CO2 [Moles/Vol] mmol/L Critically abnormal 22-32 [facility] Comment on above: Performed By: #### M G, CBC, VBG, ANEU, GFR, BMP, ADIFF ####[place] [address] Electrolyte Balance Unable to Calculate Normal 4.0-15. 0 [facility] Comment on above: Result Comment: Unab le to calculate this test result accurately. Results used to calculate this test are outside the reportable range. Performed By: #### M G, CBC, VBG, ANEU, GFR, BMP, ADIFF ####[place] [address] BUN/Creatinine Ratio 38.3 ratio High 10.0-22.0 [facility] Comment on above: Performed By: #### M G, CBC, VBG, ANEU, GFR, BMP, ADIFF ####[place] [address] Calcium [Mass/Vol] 9.1 mg/dL Normal 8.7-10.[address] [facility] Comment on above: Performed By: #### M G, CBC, VBG, ANEU, GFR, BMP, ADIFF ####[place] [address] Chloride [Moles/Vol] 95 mmol/L Low 98-110 [facility] Comment on above: Performed By: #### M G, CBC, VBG, ANEU, GFR, BMP, ADIFF ####[place] [address] Creatinine [Mass/Vol] 0.47 mg/dL Low 0.50-1.20 [facility] Comment on above: Result Comment: Test ing performed on ApnaPaisa analyzer using enzymatic creatinine methodology. Performed By: #### M G, CBC, VBG, ANEU, GFR, BMP, ADIFF ####[place] [address] Glucose [Mass/Vol] 129 mg/dL High 70-[address] [facility] Comment on above: Performed By: #### M G, CBC, VBG, ANEU, GFR, BMP, ADIFF ####[address] [address] Potassium [Moles/Vol] 4.8 mmol/L Normal 3.5-5.0 [facility] Comment on above: Performed By: #### M G, CBC, VBG, ANEU, GFR, BMP, ADIFF ####[place] [id number] Sodium [Moles/Vol] 141 mmol/L Normal 136-[address] [facility] Comment on above: Performed By: #### M G, CBC, VBG, ANEU, GFR, BMP, ADIFF ####[place] [address] Urea nitrogen [Mass/Vol] 18.0 mg/dL Normal 8.0-22.0 [facility] Comment on above: Performed By: #### M G, CBC, VBG, ANEU, GFR, BMP, ADIFF ####[address] [address] CBCon 05-26-2024 Erythrocyte distribution width (RBC) [Ratio] 15.2 % Normal 11.5-15.5 [facility] Comment on above: Performed By: #### M G, CBC, VBG, ANEU, GFR, BMP, ADIFF ####[place] [address] Hematocrit (Bld) [Volume fraction] 32.0 % Low 34.0-46.0 [facility] Comment on above: Performed By: #### M G, CBC, VBG, ANEU, GFR, BMP, ADIFF ####[address] [address] Hgb 10.2 G/dL Low 12.0-16.0 [facility] Comment on above: Performed By: #### M G, CBC, VBG, ANEU, GFR, BMP, ADIFF ####[place] [address] MCH (RBC) [Entitic mass] 32.4 pg Normal 27.0-33.0 [facility] Comment on above: Performed By: #### M G, CBC, VBG, ANEU, GFR, BMP, ADIFF ####[place] [address] MCHC 32.0 G/dL Normal 32.0-36.0 [facility] Comment on above: Performed By: #### M G, CBC, VBG, ANEU, GFR, BMP, ADIFF ####[place] [address] MCV (RBC) [Entitic vol] 101.0 fL High 80.0-99.0 [facility] Comment on above: Performed By: #### M G, CBC, VBG, ANEU, GFR, BMP, ADIFF ####[place] [address] Platelet 190 10 3/mcL Normal 150-450 [facility] Comment on above: Performed By: #### M G, CBC, VBG, ANEU, GFR, BMP, ADIFF ####[place] [address] Platelet mean volume (Bld) [Entitic vol] 8.9 fL Normal 6.6-10.5 [facility] Comment on above: Performed By: #### M G, CBC, VBG, ANEU, GFR, BMP, ADIFF ####[place] [address] RBC 3.17 10 6/mcL Low 4.10-5.30 [facility] Comment on above: Performed By: #### M G, CBC, VBG, ANEU, GFR, BMP, ADIFF ####[place] [address] WBC 12.0 10 3/mcL High 4.5-10.8 [facility] Comment on above: Performed By: #### M G, CBC, VBG, ANEU, GFR, BMP, ADIFF ####[place] [address] LABORATORYOrdered By: Sim Barclay on 05-26-2024 BE [...] 05-26-2024 Magnesium [Mass/Vol] 1.8 mg/dL Normal 1.6-2.4 [facility] Comment on above: Performed By: #### M G, CBC, VBG, ANEU, GFR, BMP, ADIFF ####[place] [address] VBGon 05-26-2024 BE Venous 13.5 mmol/L High -3.0-3.0 [facility] Comment on above: Performed By: #### M G, CBC, VBG, ANEU, GFR, BMP, ADIFF ####[place] [address] CO2 [Moles/Vol] 45.9 mmol/L Critically abnormal 22.0-32.0 [facility] Comment on above: Performed By: #### M G, CBC, VBG, ANEU, GFR, BMP, ADIFF ####[place] [address] HCO3 (Bld) [Moles/Vol] 43.2 mmol/L High 21.0-30.0 [facility] Comment on above: Performed By: #### M G, CBC, VBG, ANEU, GFR, BMP, ADIFF ####[place] [address] Oxygen saturation in Blood 98.8 % High 70.0-75.0 [facility] Comment on above: Performed By: #### M G, CBC, VBG, ANEU, GFR, BMP, ADIFF ####[place] [address] pCO2 Satish 89.3 mmHg High 41.0-51.0 [facility] Comment on above: Performed By: #### M G, CBC, VBG, ANEU, GFR, BMP, ADIFF ####[place] [address] pH Venous 7.302 Low 7.380-7.460 [facility] Comment on above: Performed By: #### M G, CBC, VBG, ANEU, GFR, BMP, ADIFF ####[place] [address] pO2 Satish 135.5 mmHg High 35.0-40.0 [facility] Comment on above: Performed By: #### M G, CBC, VBG, ANEU, GFR, BMP, ADIFF ####[place] [address] .Auto Diffon 05-25-2024 Basophil, Absolute 0.1 10 3/mcL Normal 0.0-0.3 [facility] Comment on above: Performed By: #### C BC, GFR, MG, ADIFF, ANEU, BMP ####[place] [address] Basophils/100 WBC (Bld) 0.5 % Normal 0.0-2.5 [facility] Comment on above: Performed By: #### C BC, GFR, MG, ADIFF, ANEU, BMP ####[place] [address] Eosinophil, Absolute 0.7 10 3/mcL Normal 0.0-0.7 [facility] Comment on above: Performed By: #### C BC, GFR, MG, ADIFF, ANEU, BMP ####[address] [place], [place] [address] Eosinophils/100 WBC (Bld) 5.2 % Normal 0.0-6.0 [facility] Comment on above: Performed By: #### C BC, GFR, MG, ADIFF, ANEU, BMP ####[place] [address] [place] [address] Lymphocyte, Absolute 1.4 10 3/mcL Normal 0.9-4.3 [facility] Comment on above: Performed By: #### C BC, GFR, MG, ADIFF, ANEU, BMP ####[address] [address] Lymphocytes/100 WBC (Bld) 10.9 % Low 20.0-40.0 [facility] Comment on above: Performed By: #### C BC, GFR, MG, ADIFF, ANEU, BMP ####[address] [address] Monocyte, Absolute 0.9 10 3/mcL Normal 0.1-1.4 [facility] Comment on above: Performed By: #### C BC, GFR, MG, ADIFF, ANEU, BMP ####[address] [address] Monocytes/100 WBC (Bld) 7.2 % Normal 2.0-13.0 [facility] Comment on above: Performed By: #### C BC, GFR, MG, ADIFF, ANEU, BMP ####[address] [address] Neutrophils/100 WBC (Bld) 76.2 % High 50.0-75.0 [facility] Comment on above: Performed By: #### C BC, GFR, MG, ADIFF, ANEU, BMP ####[address] [address] .GFRon 05-25-2024 GFR/1.73 sq M.predicted among non-blacks MDRD (S/P/Bld) [Vol rate/Area] mL/min/{1.73_m2} Normal [facility] Comment on above: Result Comment: Stag [...] C BC, GFR, MG, ADIFF, ANEU, BMP ####[place] [address] .NEUABSon 05-25-2024 Neutrophil, Absolute 10.0 10 3/mcL High 2.3-8.1 [facility] Comment on above: Performed By: #### C BC, GFR, MG, ADIFF, ANEU, BMP ####[place] [address] BMPon 05-25-2024 CO2 [Moles/Vol] mmol/L Critically abnormal 22-32 [facility] Comment on above: Performed By: #### C BC, GFR, MG, ADIFF, ANEU, BMP ####[place] [address] Electrolyte Balance Unable to Calculate Normal 4.0-15. 0 [facility] Comment on above: Result Comment: Unab le to calculate this test result accurately. Results used to calculate this test are outside the reportable range. Performed By: #### C BC, GFR, MG, ADIFF, ANEU, BMP ####[place] [address] BUN/Creatinine Ratio 45.5 ratio High 10.0-22.0 [facility] Comment on above: Performed By: #### C BC, GFR, MG, ADIFF, ANEU, BMP ####[place] [address] Calcium [Mass/Vol] 9.4 mg/dL Normal 8.7-10.[address] [facility] Comment on above: Performed By: #### C BC, GFR, MG, ADIFF, ANEU, BMP ####[address] [address] Chloride [Moles/Vol] 95 mmol/L Low 98-110 [facility] Comment on above: Performed By: #### C BC, GFR, MG, ADIFF, ANEU, BMP ####[address] [address] Creatinine [Mass/Vol] 0.44 mg/dL Low 0.50-1.20 [facility] Comment on above: Result Comment: Test ing performed on ApnaPaisa analyzer using enzymatic creatinine methodology. Performed By: #### C BC, GFR, MG, ADIFF, ANEU, BMP ####[address] [address] Glucose [Mass/Vol] 83 mg/dL Normal 70-[address] [facility] Comment on above: Performed By: #### C BC, GFR, MG, ADIFF, ANEU, BMP ####[place] [address] Potassium [Moles/Vol] 4.2 mmol/L Normal 3.5-5.0 [facility] Comment on above: Performed By: #### C BC, GFR, MG, ADIFF, ANEU, BMP ####[address] [address] Sodium [Moles/Vol] 141 mmol/L Normal 136-[address] [facility] Comment on above: Performed By: #### C BC, GFR, MG, ADIFF, ANEU, BMP ####[place] [id number] Urea nitrogen [Mass/Vol] 20.0 mg/dL Normal 8.0-22.0 [facility] Comment on above: Performed By: #### C BC, GFR, MG, ADIFF, ANEU, BMP ####[address] [address] CBCon 05-25-2024 Erythrocyte distribution width (RBC) [Ratio] 15.6 % High 11.5-15.5 [facility] Comment on above: Performed By: #### C BC, GFR, MG, ADIFF, ANEU, BMP ####[place] [address] Hematocrit (Bld) [Volume fraction] 30.6 % Low 34.0-46.0 [facility] Comment on above: Performed By: #### C BC, GFR, MG, ADIFF, ANEU, BMP ####[place] [address] Hgb 9.7 G/dL Low 12.0-16.0 [facility] Comment on above: Performed By: #### C BC, GFR, MG, ADIFF, ANEU, BMP ####[place] [address] MCH (RBC) [Entitic mass] 32.6 pg Normal 27.0-33.0 [facility] Comment on above: Performed By: #### C BC, GFR, MG, ADIFF, ANEU, BMP ####[place] [address] MCHC 31.8 G/dL Low 32.0-36.0 [facility] Comment on above: Performed By: #### C BC, GFR, MG, ADIFF, ANEU, BMP ####[place] [address] MCV (RBC) [Entitic vol] 102.7 fL High 80.0-99.0 [facility] Comment on above: Performed By: #### C BC, GFR, MG, ADIFF, ANEU, BMP ####[place] [address] Platelet 183 10 3/mcL Normal 150-450 [facility] Comment on above: Performed By: #### C BC, GFR, MG, ADIFF, ANEU, BMP ####[place] [address] Platelet mean volume (Bld) [Entitic vol] 9.1 fL Normal 6.6-10.5 [facility] Comment on above: Performed By: #### C BC, GFR, MG, ADIFF, ANEU, BMP ####[place] [address] RBC 2.98 10 6/mcL Low 4.10-5.30 [facility] Comment on above: Performed By: #### C BC, GFR, MG, ADIFF, ANEU, BMP ####[address] [address] WBC 13.1 10 3/mcL High 4.5-10.8 [facility] Comment on above: Performed By: #### C BC, GFR, MG, ADIFF, ANEU, BMP ####[place] [address] MGon 05-25-2024 Magnesium [Mass/Vol] 2.0 mg/dL Normal 1.6-2.4 [facility] Comment on above: Performed By: #### C BC, GFR, MG, ADIFF, ANEU, BMP ####[place] [address] XR CHEST 1 VIEWon 05-25-2024 XR CHEST 1 VIEW Normal [facility] .Auto Diffon 05-24-2024 Basophil, Absolute 0.1 10 3/mcL Normal 0.0-0.3 [facility] Comment on above: Performed By: #### F ES, FOL, GFR, PHOS, FERR, B12, MG, BMP, ADIFF, VBG, CBC, ANEU ####[address] [address] Basophils/100 WBC (Bld) 0.6 % Normal 0.0-2.5 [facility] [facility] Comment on above: Performed By: #### F ES, FOL, GFR, PHOS, FERR, B12, MG, BMP, ADIFF, VBG, CBC, ANEU ####[address] [address] Eosinophil, Absolute 0.8 10 3/mcL High 0.0-0.7 [facility] MAIN Comment on above: Performed By: #### F ES, FOL, GFR, PHOS, FERR, B12, MG, BMP, ADIFF, VBG, CBC, ANEU ####[address] [address] Eosinophils/100 WBC (Bld) 6.2 % High 0.0-6.0 [facility] MAIN Comment on above: Performed By: #### F ES, FOL, GFR, PHOS, FERR, B12, MG, BMP, ADIFF, VBG, CBC, ANEU ####[address] [address] Lymphocyte, Absolute 1.3 10 3/mcL Normal 0.9-4.3 [facility] Comment on above: Performed By: #### F ES, FOL, GFR, PHOS, FERR, B12, MG, BMP, ADIFF, VBG, CBC, ANEU ####[address] [address] Lymphocytes/100 WBC (Bld) 10.9 % Low 20.0-40.0 [facility] MAIN Comment on above: Performed By: #### F ES, FOL, GFR, PHOS, FERR, B12, MG, BMP, ADIFF, VBG, CBC, ANEU ####[address] [address] Monocyte, Absolute 1.1 10 3/mcL Normal 0.1-1.4 [facility]IN Comment on above: Performed By: #### F ES, FOL, GFR, PHOS, FERR, B12, MG, BMP, ADIFF, VBG, CBC, ANEU ####[address] [address] Monocytes/100 WBC (Bld) 9.2 % Normal 2.0-13.0 [facility] Comment on above: Performed By: #### F ES, FOL, GFR, PHOS, FERR, B12, MG, BMP, ADIFF, VBG, CBC, ANEU ####[address] [address] Neutrophils/100 WBC (Bld) 73.1 % Normal 50.0-75.0 [facility] MA[facility] Comment on above: Performed By: #### F ES, FOL, GFR, PHOS, FERR, B12, MG, BMP, ADIFF, VBG, CBC, ANEU ####[address] [address] .GFRon 05-24-2024 GFR/1.73 sq M.predicted among non-blacks MDRD (S/P/Bld) [Vol rate/Area] mL/min/{1.73_m2} Normal [facility] MAIN Comment on above: Result Comment: Stag [...] B12, MG, BMP, ADIFF, VBG, CBC, ANEU ####[address] [address] .NEUABSon 05-24-2024 Neutrophil, Absolute 9.0 10 3/mcL High 2.3-8.1 [facility]IN Comment on above: Performed By: #### F ES, FOL, GFR, PHOS, FERR, B12, MG, BMP, ADIFF, VBG, CBC, ANEU ####[place] [id number] ANAIFSon 05-24-2024 Antinuclear Ab Screen Negative Normal Negative [facility] MAIN Comment on above: Result Comment: Anti -nuclear antibody test is used as an aid in diagnosis of systemic autoimmune diseases. Where positive and clinically warranted, follow-up using disease-specific testing is recommended. Low positive titers are not uncommon with advanced age, certain chronic infections, and malignancies among others.Test methodology: Indirect fluorescence immunoassay (IFA) using HEp-2 cells.Performed By:[facility] [id number] Director: Bin Montes III, M.D.CLIA#: [id number] Performed By: #### 0 [id number], ANAIFS, CBC, FES, GFR, HEPAC, MG, TSHR, FERR, [id number], RF, HIV, ANEU, ADIFF, BMP ####[place] [address] B12on 05-24-2024 Cobalamin (Vitamin B12) [Mass/Vol] 587 pg/mL Normal 211-911 [facility] MAIN Comment on above: Performed By: #### F ES, FOL, GFR, PHOS, FERR, B12, MG, BMP, ADIFF, VBG, CBC, ANEU ####[address] [address] BGon 05-24-2024 Base excess Calc (Bld) [Moles/Vol] 15.0 mmol/L Normal [facility] MAIN Comment on above: Performed By: #### B G ####[place] [address] CO2 [Moles/Vol] 47.2 mmol/L Critically abnormal 22.0-30.0 [facility] MAIN Comment on above: Performed By: #### B G ####[place] [address] HCO3 (Bld) [Moles/Vol] 44.5 mmol/L High 21.0-29.0 [facility] MAIN Comment on above: Performed By: #### B G ####[place] [address] Oxygen (Bld) [Partial pressure] 65.1 mm[Hg] Low 74.0-108.0 [facility] MAIN Comment on above: Performed By: #### B G ####[place] [address] Oxygen saturation in Blood 91.8 % Low 92.0-96.0 [facility] MAIN Comment on above: Performed By: #### B G ####[place] [address] pCO2 87.8 mmHg Critically abnormal 32.0-46.0 [facility] MAIN Comment on above: Performed By: #### B G ####[place] [id number] pH (Bld) 7.323 [pH] Low 7.380-7.460 [facility] MAIN Comment on above: Performed By: #### B G ####[place] [address] BMPon 05-24-2024 BUN/Creatinine Ratio 44.9 ratio High 10.0-22.0 [facility] Comment on above: Performed By: #### F ES, FOL, GFR, PHOS, FERR, B12, MG, BMP, ADIFF, VBG, CBC, ANEU ####[address] [address] Calcium [Mass/Vol] 9.4 mg/dL Normal 8.7-10.[address] [facility] MAIN Comment on above: Performed By: #### F ES, FOL, GFR, PHOS, FERR, B12, MG, BMP, ADIFF, VBG, CBC, ANEU ####[address] [address] Chloride [Moles/Vol] 96 mmol/L Low 98-110 [facility] MA[facility] Comment on above: Performed By: #### F ES, FOL, GFR, PHOS, FERR, B12, MG, BMP, ADIFF, VBG, CBC, ANEU ####[address] [address] CO2 [Moles/Vol] mmol/L Critically abnormal 22-32 [facility] MAIN Comment on above: Performed By: #### F ES, FOL, GFR, PHOS, FERR, B12, MG, BMP, ADIFF, VBG, CBC, ANEU ####[address] [address] Creatinine [Mass/Vol] 0.49 mg/dL Low 0.50-1.20 [facility] MAIN Comment on above: Result Comment: Test ing performed on [employer] analyzer using enzymatic creatinine methodology. Performed By: #### F ES, FOL, GFR, PHOS, FERR, B12, MG, BMP, ADIFF, VBG, CBC, ANEU ####[address] [address] Electrolyte Balance <5.0 Normal 4.0-15.[address] [facility] MAIN Comment on above: Performed By: #### F ES, FOL, GFR, PHOS, FERR, B12, MG, BMP, ADIFF, VBG, CBC, ANEU ####[address] [address] Glucose [Mass/Vol] 106 mg/dL Normal 70-[address] [facility] MAIN Comment on above: Performed By: #### F ES, FOL, GFR, PHOS, FERR, B12, MG, BMP, ADIFF, VBG, CBC, ANEU ####[address] [address] Potassium [Moles/Vol] 4.6 mmol/L Normal 3.5-5.0 [facility] MA[facility] Comment on above: Performed By: #### F ES, FOL, GFR, PHOS, FERR, B12, MG, BMP, ADIFF, VBG, CBC, ANEU ####[address] [address] Sodium [Moles/Vol] 141 mmol/L Normal 136-[address] [facility] MAIN Comment on above: Performed By: #### F ES, FOL, GFR, PHOS, FERR, B12, MG, BMP, ADIFF, VBG, CBC, ANEU ####[place] [id number] Urea nitrogen [Mass/Vol] 22.0 mg/dL Normal 8.0-22.0 [facility] MAIN Comment on above: Performed By: #### F ES, FOL, GFR, PHOS, FERR, B12, MG, BMP, ADIFF, VBG, CBC, ANEU ####[address] [address] CBCon 05-24-2024 Erythrocyte distribution width (RBC) [Ratio] 15.4 % Normal 11.5-15.5 [facility] MAIN Comment on above: Performed By: #### F ES, FOL, GFR, PHOS, FERR, B12, MG, BMP, ADIFF, VBG, CBC, ANEU ####[place] [address] Hematocrit (Bld) [Volume fraction] 30.8 % Low 34.0-46.0 [facility] MAIN Comment on above: Performed By: #### F ES, FOL, GFR, PHOS, FERR, B12, MG, BMP, ADIFF, VBG, CBC, ANEU ####[place] [id number] Hgb 10.0 G/dL Low 12.0-16.0 [facility] MAIN Comment on above: Performed By: #### F ES, FOL, GFR, PHOS, FERR, B12, MG, BMP, ADIFF, VBG, CBC, ANEU ####[place] [address] MCH (RBC) [Entitic mass] 32.9 pg Normal 27.0-33.0 [facility] MAIN Comment on above: Performed By: #### F ES, FOL, GFR, PHOS, FERR, B12, MG, BMP, ADIFF, VBG, CBC, ANEU ####[place] [address] MCHC 32.4 G/dL Normal 32.0-36.0 [facility] MAIN Comment on above: Performed By: #### F ES, FOL, GFR, PHOS, FERR, B12, MG, BMP, ADIFF, VBG, CBC, ANEU ####[place] [address] MCV (RBC) [Entitic vol] 101.5 fL High 80.0-99.0 [facility] MAIN Comment on above: Performed By: #### F ES, FOL, GFR, PHOS, FERR, B12, MG, BMP, ADIFF, VBG, CBC, ANEU ####[place] [address] Platelet 177 10 3/mcL Normal 150-450 [facility] MAIN Comment on above: Performed By: #### F ES, FOL, GFR, PHOS, FERR, B12, MG, BMP, ADIFF, VBG, CBC, ANEU ####[place] [address] Platelet mean volume (Bld) [Entitic vol] 9.0 fL Normal 6.6-10.5 [facility] MAIN Comment on above: Performed By: #### F ES, FOL, GFR, PHOS, FERR, B12, MG, BMP, ADIFF, VBG, CBC, ANEU ####[place] [address] RBC 3.04 10 6/mcL Low 4.10-5.30 [facility] MAIN Comment on above: Performed By: #### F ES, FOL, GFR, PHOS, FERR, B12, MG, BMP, ADIFF, VBG, CBC, ANEU ####[place] [address] WBC 12.3 10 3/mcL High 4.5-10.8 [facility] MAIN Comment on above: Performed By: #### F ES, FOL, GFR, PHOS, FERR, B12, MG, BMP, ADIFF, VBG, CBC, ANEU ####[place] [address] [place] 05-24-2024 Ferritin [Mass/Vol] 79.4 ng/mL Normal 8.0-252.[address] [facility] MAIN Comment on above: Performed By: #### F ES, FOL, GFR, PHOS, FERR, B12, MG, BMP, ADIFF, VBG, CBC, ANEU ####[place] [address] FESon 05-24-2024 Iron [Mass/Vol] 62 ug/dL Normal 50-170 [facility] MAIN Comment on above: Performed By: #### F ES, FOL, GFR, PHOS, FERR, B12, MG, BMP, ADIFF, VBG, CBC, ANEU ####[place] [address] Iron Sat 20 % Normal [facility] MAIN Comment on above: Performed By: #### F ES, FOL, GFR, PHOS, FERR, B12, MG, BMP, ADIFF, VBG, CBC, ANEU ####[place] [address] TIBC 309 mcg/dL Normal 250-500 [facility] MAIN Comment on above: Performed By: #### F ES, FOL, GFR, PHOS, FERR, B12, MG, BMP, ADIFF, VBG, CBC, ANEU ####[place] [address] FOLon 05-24-2024 Folate 11.93 ng/mL Normal 5.38-24.00 [facility] MAIN Comment on above: Performed By: #### F ES, FOL, GFR, PHOS, FERR, B12, MG, BMP, ADIFF, VBG, CBC, ANEU ####[place] [id number] [place] [address] LABORATORYOrdered By: Jonathan Wilkins on 05-24-2024 CO2 [...] ng/L Male: 0-54 ng/L Testing performed on [employer] analyzer using direct chemiluminescent technology. Cobalamin (Vitamin [...] 05-24-2024 Magnesium [Mass/Vol] 2.0 mg/dL Normal 1.6-2.4 [facility] MAIN Comment on above: Performed By: #### F ES, FOL, GFR, PHOS, FERR, B12, MG, BMP, ADIFF, VBG, CBC, ANEU ####[place] [address] PHOSon 05-24-2024 Phosphate [Mass/Vol] 4.4 mg/dL Normal 2.4-5.1 [facility] MAIN Comment on above: Result Comment: No te - New Reference Range in effect 19 Performed By: #### F ES, FOL, GFR, PHOS, FERR, B12, MG, BMP, ADIFF, VBG, CBC, ANEU ####[place] [address] RFon 05-24-2024 Rheumatoid Factor <6.0 Normal <=5.9 [facility] MAIN Comment on above: Result Comment: RF [...] serological tests.These results were obtained with the Un[employer] QUANT[employer] Lite RF IgM GAETANO. RF IgM values obtained with different manufacturers' assay methods may not be used interchangeably.The magnitude of the reported IgM levels cannot be correlated to an endpoint titer. Performed By: #### 0 [id number], ANAIFS, CBC, FES, GFR, HEPAC, MG, TSHR, FERR, [id number], RF, HIV, ANEU, ADIFF, BMP ####[place] [address] RSH40nv 05-24-2024 Anti-Scl-70 Abs 0.2 AI Normal 0.0-0.9 [facility] MAIN Comment on above: Result Comment: Perf ormed At: [facility] [id number] [place], [place] [id number] Vincent PhD Ph:[phone] Performed By: #### 0 [address], ANAIFS, CBC, FES, GFR, HEPAC, MG, TSHR, FERR, 484268, RF, HIV, ANEU, ADIFF, BMP ####[place] [address] SSABon 05-24-2024 Sjogrens SSA Ab <0.2 Normal 0.0-0.9 [facility] MAIN Comment on above: Performed By: #### 0 [address], ANAIFS, CBC, FES, GFR, HEPAC, MG, TSHR, FERR, 605197, RF, HIV, ANEU, ADIFF, BMP ####[place] [address] Sjogrens SSB Ab <0.2 Normal 0.0-0.9 [facility] MAIN Comment on above: Result Comment: Perf ormed At: [facility] [id number] Vincent PhD Ph:[phone] Performed By: #### 0 [address], ANAIFS, CBC, FES, GFR, HEPAC, MG, TSHR, FERR, 108457, RF, HIV, ANEU, ADIFF, BMP ####[place] [address] TROPHSon 05-24-2024 High Sensitivity Troponin I 4 ng/L Normal 0-34 [facility] MAIN Comment on above: Result Comment: High Sensitive Troponin I Reference Ranges:Female: 0-34 ng/LMale: 0-54 ng/LTesting performed on [employer] IM analyzer using direct chemiluminescent technology. Performed By: #### T ROPHS ####[place] [address] VBGon 05-24-2024 BE Venous 13.3 mmol/L High -3.0-3.0 [facility] MAIN Comment on above: Performed By: #### F ES, FOL, GFR, PHOS, FERR, B12, MG, BMP, ADIFF, VBG, CBC, ANEU ####[place] [address] CO2 [Moles/Vol] 46.7 mmol/L Critically abnormal 22.0-32.0 [facility] MAIN Comment on above: Performed By: #### F ES, FOL, GFR, PHOS, FERR, B12, MG, BMP, ADIFF, VBG, CBC, ANEU ####[place] [address] HCO3 (Bld) [Moles/Vol] 43.7 mmol/L High 21.0-30.0 [facility] MAIN Comment on above: Performed By: #### F ES, FOL, GFR, PHOS, FERR, B12, MG, BMP, ADIFF, VBG, CBC, ANEU ####[place] [address] Oxygen saturation in Blood 88.9 % High 70.0-75.0 [facility] MAIN Comment on above: Performed By: #### F ES, FOL, GFR, PHOS, FERR, B12, MG, BMP, ADIFF, VBG, CBC, ANEU ####[place] [address] pCO2 Satish 97.6 mmHg High 41.0-51.0 [facility] MAIN Comment on above: Performed By: #### F ES, FOL, GFR, PHOS, FERR, B12, MG, BMP, ADIFF, VBG, CBC, ANEU ####[place] [address] pH Venous 7.269 Low 7.380-7.460 [facility] MAIN Comment on above: Performed By: #### F ES, FOL, GFR, PHOS, FERR, B12, MG, BMP, ADIFF, VBG, CBC, ANEU ####[place] [address] pO2 Satish 61.9 mmHg High 35.0-40.0 [facility] MAIN Comment on above: Performed By: #### F ES, FOL, GFR, PHOS, FERR, B12, MG, BMP, ADIFF, VBG, CBC, ANEU ####[place] [address] .Auto Diffon 05-23-2024 Basophil, Absolute 0.1 10 3/mcL Normal 0.0-0.3 [facility] Comment on above: Performed By: #### G FR, MG, ANEU, BMP, CBC, ADIFF ####[place] [address] Basophils/100 WBC (Bld) 0.6 % Normal 0.0-2.5 [facility] MAIN Comment on above: Performed By: #### G FR, MG, ANEU, BMP, CBC, ADIFF ####[address] [address] Eosinophil, Absolute 0.7 10 3/mcL Normal 0.0-0.7 [facility] MAIN Comment on above: Performed By: #### G FR, MG, ANEU, BMP, CBC, ADIFF ####[address] [address] Eosinophils/100 WBC (Bld) 6.2 % High 0.0-6.0 [facility] Comment on above: Performed By: #### G FR, MG, ANEU, BMP, CBC, ADIFF ####[address] [address] Lymphocyte, Absolute 1.2 10 3/mcL Normal 0.9-4.3 [facility]IN Comment on above: Performed By: #### G FR, MG, ANEU, BMP, CBC, ADIFF ####[address] [address] Lymphocytes/100 WBC (Bld) 10.6 % Low 20.0-40.0 [facility] Comment on above: Performed By: #### G FR, MG, ANEU, BMP, CBC, ADIFF ####[address] [address] Monocyte, Absolute 1.0 10 3/mcL Normal 0.1-1.4 [facility] Comment on above: Performed By: #### G FR, MG, ANEU, BMP, CBC, ADIFF ####[address] [address] Monocytes/100 WBC (Bld) 9.4 % Normal 2.0-13.0 [facility] Comment on above: Performed By: #### G FR, MG, ANEU, BMP, CBC, ADIFF ####[address] [address] Neutrophils/100 WBC (Bld) 73.2 % Normal 50.0-75.0 [facility] Comment on above: Performed By: #### G FR, MG, ANEU, BMP, CBC, ADIFF ####[place] [id number] .GFRon 05-23-2024 Estimated Glomerular Filtration Rate 120 ml/min/1.73sqm Normal [facility] MAIN Comment on above: Result Comment: Stag [...] G FR, MG, ANEU, BMP, CBC, ADIFF ####[place] [address] .NEUABSon 05-23-2024 Neutrophil, Absolute 8.1 10 3/mcL Normal 2.3-8.1 [facility] MAIN Comment on above: Performed By: #### G FR, MG, ANEU, BMP, CBC, ADIFF ####[place] [address] BMPon 05-23-2024 CO2 [Moles/Vol] mmol/L Critically abnormal 22-32 [facility] MAIN Comment on above: Performed By: #### G FR, MG, ANEU, BMP, CBC, ADIFF ####[place] [address] Electrolyte Balance Unable to Calculate Normal 4.0-15. 0 [facility] MAIN Comment on above: Result Comment: Unab le to calculate this test result accurately. Results used to calculate this test are outside the reportable range. Performed By: #### G FR, MG, ANEU, BMP, CBC, ADIFF ####[place] [address] BUN/Creatinine Ratio 45.1 ratio High 10.0-22.0 [facility] Comment on above: Performed By: #### G FR, MG, ANEU, BMP, CBC, ADIFF ####[address] [address] Calcium [Mass/Vol] 9.0 mg/dL Normal 8.7-10.[address] [facility] MA[facility] Comment on above: Performed By: #### G FR, MG, ANEU, BMP, CBC, ADIFF ####[address] [address] Chloride [Moles/Vol] 96 mmol/L Low 98-110 [facility] Comment on above: Performed By: #### G FR, MG, ANEU, BMP, CBC, ADIFF ####[address] [address] Creatinine [Mass/Vol] 0.51 mg/dL Normal 0.50-1.20 [facility] MA[facility] Comment on above: Result Comment: Test ing performed on [employer] analyzer using enzymatic creatinine methodology. Performed By: #### G FR, MG, ANEU, BMP, CBC, ADIFF ####[address] [address] Glucose [Mass/Vol] 110 mg/dL Normal 70-[address] [facility] Comment on above: Performed By: #### G FR, MG, ANEU, BMP, CBC, ADIFF ####[address] [address] Potassium [Moles/Vol] 4.6 mmol/L Normal 3.5-5.0 [facility] Comment on above: Performed By: #### G FR, MG, ANEU, BMP, CBC, ADIFF ####[address] [address] Sodium [Moles/Vol] 141 mmol/L Normal 136-[address] [facility] Comment on above: Performed By: #### G FR, MG, ANEU, BMP, CBC, ADIFF ####[address] [address] Urea nitrogen [Mass/Vol] 23.0 mg/dL High 8.0-22.0 [facility] Comment on above: Performed By: #### G FR, MG, ANEU, BMP, CBC, ADIFF ####[place] [address] CBCon 05-23-2024 Erythrocyte distribution width (RBC) [Ratio] 15.3 % Normal 11.5-15.5 [facility] MA[facility] Comment on above: Performed By: #### G FR, MG, ANEU, BMP, CBC, ADIFF ####[place] [address] Hematocrit (Bld) [Volume fraction] 29.6 % Low 34.0-46.0 [facility] Comment on above: Performed By: #### G FR, MG, ANEU, BMP, CBC, ADIFF ####[place] [address] Hgb 9.5 G/dL Low 12.0-16.0 [facility] Comment on above: Performed By: #### G FR, MG, ANEU, BMP, CBC, ADIFF ####[place] [address] MCH (RBC) [Entitic mass] 32.5 pg Normal 27.0-33.0 [facility] Comment on above: Performed By: #### G FR, MG, ANEU, BMP, CBC, ADIFF ####[place] [address] MCHC 32.2 G/dL Normal 32.0-36.0 [facility] Comment on above: Performed By: #### G FR, MG, ANEU, BMP, CBC, ADIFF ####[place] [address] MCV (RBC) [Entitic vol] 100.7 fL High 80.0-99.0 [facility] Comment on above: Performed By: #### G FR, MG, ANEU, BMP, CBC, ADIFF ####[place] [address] Platelet 177 10 3/mcL Normal 150-450 [facility] Comment on above: Performed By: #### G FR, MG, ANEU, BMP, CBC, ADIFF ####[place] [address] Platelet mean volume (Bld) [Entitic vol] 8.6 fL Normal 6.6-10.5 [facility] Comment on above: Performed By: #### G FR, MG, ANEU, BMP, CBC, ADIFF ####[place] [address] RBC 2.94 10 6/mcL Low 4.10-5.30 [facility] Comment on above: Performed By: #### G FR, MG, ANEU, BMP, CBC, ADIFF ####[place] [address] WBC 11.0 10 3/mcL High 4.5-10.8 [facility] Comment on above: Performed By: #### G FR, MG, ANEU, BMP, CBC, ADIFF ####[place] [address] MGon 05-23-2024 Magnesium [Mass/Vol] 2.2 mg/dL Normal 1.6-2.4 [facility] Comment on above: Performed By: #### G FR, MG, ANEU, BMP, CBC, ADIFF ####[place] [address] .Auto Diffon 05-22-2024 Basophil, Absolute 0.0 10 3/mcL Normal 0.0-0.3 [facility] Comment on above: Performed By: #### B MP, ANEU, ADIFF, MG, CBC, GFR ####[place] [address] Basophils/100 WBC (Bld) 0.3 % Normal 0.0-2.5 [facility] Comment on above: Performed By: #### B MP, ANEU, ADIFF, MG, CBC, GFR ####[place] [address] Eosinophil, Absolute 0.7 10 3/mcL Normal 0.0-0.7 [facility] Comment on above: Performed By: #### B MP, ANEU, ADIFF, MG, CBC, GFR ####[place] [address] Eosinophils/100 WBC (Bld) 5.8 % Normal 0.0-6.0 [facility] Comment on above: Performed By: #### B MP, ANEU, ADIFF, MG, CBC, GFR ####[address] [address] Lymphocyte, Absolute 1.4 10 3/mcL Normal 0.9-4.3 [facility] Comment on above: Performed By: #### B MP, ANEU, ADIFF, MG, CBC, GFR ####[address] [address] Lymphocytes/100 WBC (Bld) 11.8 % Low 20.0-40.0 [facility] Comment on above: Performed By: #### B MP, ANEU, ADIFF, MG, CBC, GFR ####[address] [address] Monocyte, Absolute 0.9 10 3/mcL Normal 0.1-1.4 [facility] Comment on above: Performed By: #### B MP, ANEU, ADIFF, MG, CBC, GFR ####[address] [address] Monocytes/100 WBC (Bld) 7.8 % Normal 2.0-13.0 [facility] Comment on above: Performed By: #### B MP, ANEU, ADIFF, MG, CBC, GFR ####[address] [address] Neutrophils/100 WBC (Bld) 74.3 % Normal 50.0-75.0 [facility] Comment on above: Performed By: #### B MP, ANEU, ADIFF, MG, CBC, GFR ####[address] [address] .GFRon 05-22-2024 GFR/1.73 sq M.predicted among non-blacks MDRD (S/P/Bld) [Vol rate/Area] mL/min/{1.73_m2} Normal [facility] Comment on above: Result Comment: Stag [...] B MP, ANEU, ADIFF, MG, CBC, GFR ####[address] [address] .NEUABSon 05-22-2024 Neutrophil, Absolute 9.1 10 3/mcL High 2.3-8.1 [facility] Comment on above: Performed By: #### B MP, ANEU, ADIFF, MG, CBC, GFR ####[place] [address] BMPon 05-22-2024 BUN/Creatinine Ratio 39.1 ratio High 10.0-22.0 [facility] Comment on above: Order Comment: vrb- called critical CO2 to RN Dylon Villasenor 05/22/2024 03:25:10 EDT SAS Performed By: #### B MP, ANEU, ADIFF, MG, CBC, GFR ####[place] [address] Calcium [Mass/Vol] 9.1 mg/dL Normal 8.7-10.[address] [facility] Comment on above: Order Comment: vrb- called critical CO2 to RN Dylon Villasenor 05/22/2024 03:25:10 EDT SAS Performed By: #### B MP, ANEU, ADIFF, MG, CBC, GFR ####[address] [address] Chloride [Moles/Vol] 98 mmol/L Normal 98-110 [facility] Comment on above: Order Comment: vrb- called critical CO2 to RN Dylon Villasenor 05/22/2024 03:25:10 EDT SAS Performed By: #### B MP, ANEU, ADIFF, MG, CBC, GFR ####[address] [address] Creatinine [Mass/Vol] 0.46 mg/dL Low 0.50-1.20 [facility] Comment on above: Order Comment: vrb- called critical CO2 to RN Dylon Villasenor 05/22/2024 03:25:10 EDT SAS Result Comment: Test ing performed on [employer] analyzer using enzymatic creatinine methodology. Performed By: #### B MP, ANEU, ADIFF, MG, CBC, GFR ####[address] [address] Glucose [Mass/Vol] 112 mg/dL High 70-[address] [facility] Comment on above: Order Comment: vrb- called critical CO2 to RN Dylon Villasenor 05/22/2024 03:25:10 EDT SAS Performed By: #### B MP, ANEU, ADIFF, MG, CBC, GFR ####[address] [address] Potassium [Moles/Vol] 4.4 mmol/L Normal 3.5-5.0 [facility] Comment on above: Order Comment: vrb- called critical CO2 to RN Dylon Villasenor 05/22/2024 03:25:10 EDT SAS Performed By: #### B MP, ANEU, ADIFF, MG, CBC, GFR ####[address] [address] Sodium [Moles/Vol] 142 mmol/L Normal 136-[address] [facility] Comment on above: Order Comment: vrb- called critical CO2 to RN Dylon Villasenor 05/22/2024 03:25:10 EDT SAS Performed By: #### B MP, ANEU, ADIFF, MG, CBC, GFR ####[address] [address] Urea nitrogen [Mass/Vol] 18.0 mg/dL Normal 8.0-22.0 [facility] Comment on above: Order Comment: vrb- called critical CO2 to RN Dylon Fullerer 05/22/2024 03:25:10 EDT SAS Performed By: #### B MP, ANEU, ADIFF, MG, CBC, GFR ####[address] [address] CO2 [Moles/Vol] mmol/L Critically abnormal 22-32 [facility] Comment on above: Order Comment: vrb- called critical CO2 to RODRÍGUEZ Villasenor 05/22/2024 03:25:10 EDT SAS Performed By: #### B MP, ANEU, ADIFF, MG, CBC, GFR ####[place] [address] Electrolyte Balance See Comment Normal 4.0-15.0 [facility] Comment on above: Order Comment: vrb- called critical CO2 to RODRÍGUEZ Villasenor 05/22/2024 03:25:10 EDT SAS Result Comment: Unab le to calculate this test result accurately. Results used to calculate this test are outside the reportable range. Performed By: #### B MP, ANEU, ADIFF, MG, CBC, GFR ####[place] [address] CBCon 05-22-2024 Erythrocyte distribution width (RBC) [Ratio] 14.6 % Normal 11.5-15.5 [facility] Comment on above: Performed By: #### B MP, ANEU, ADIFF, MG, CBC, GFR ####[place] [address] Hematocrit (Bld) [Volume fraction] 30.9 % Low 34.0-46.0 [facility] Comment on above: Performed By: #### B MP, ANEU, ADIFF, MG, CBC, GFR ####[place] [address] Hgb 9.7 G/dL Low 12.0-16.0 [facility] Comment on above: Performed By: #### B MP, ANEU, ADIFF, MG, CBC, GFR ####[place] [address] MCH (RBC) [Entitic mass] 31.7 pg Normal 27.0-33.0 [facility] Comment on above: Performed By: #### B MP, ANEU, ADIFF, MG, CBC, GFR ####[place] [address] MCHC 31.4 G/dL Low 32.0-36.0 [facility] Comment on above: Performed By: #### B MP, ANEU, ADIFF, MG, CBC, GFR ####[place] [address] MCV (RBC) [Entitic vol] 100.9 fL High 80.0-99.0 [facility] Comment on above: Performed By: #### B MP, ANEU, ADIFF, MG, CBC, GFR ####[place] [address] Platelet 190 10 3/mcL Normal 150-450 [facility] Comment on above: Performed By: #### B MP, ANEU, ADIFF, MG, CBC, GFR ####[place] [address] Platelet mean volume (Bld) [Entitic vol] 9.2 fL Normal 6.6-10.5 [facility] Comment on above: Performed By: #### B MP, ANEU, ADIFF, MG, CBC, GFR ####[place] [address] RBC 3.07 10 6/mcL Low 4.10-5.30 [facility] Comment on above: Performed By: #### B MP, ANEU, ADIFF, MG, CBC, GFR ####[place] [address] WBC 12.2 10 3/mcL High 4.5-10.8 [facility] Comment on above: Performed By: #### B MP, ANEU, ADIFF, MG, CBC, GFR ####[place] [address] MGon 05-22-2024 Magnesium [Mass/Vol] 2.4 mg/dL Normal 1.6-2.4 [facility] Comment on above: Performed By: #### B MP, ANEU, ADIFF, MG, CBC, GFR ####[place] [address] .Auto Diffon 05-21-2024 Basophil, Absolute 0.1 10 3/mcL Normal 0.0-0.3 [facility] Comment on above: Performed By: #### A DAISY, ADIFF, CBC ####[address] [address] Basophils/100 WBC (Bld) 0.6 % Normal 0.0-2.5 [facility] Comment on above: Performed By: #### A YESENIA VILLAIFF, CBC ####[address] [address] Eosinophil, Absolute 0.7 10 3/mcL Normal 0.0-0.7 [facility] MA[facility] Comment on above: Performed By: #### A YESENIA VILLAIFF, CBC ####[address] [address] Eosinophils/100 WBC (Bld) 5.1 % Normal 0.0-6.0 [facility] Comment on above: Performed By: #### A KENA VILLA, CBC ####[address] [address] Lymphocyte, Absolute 1.4 10 3/mcL Normal 0.9-4.3 [facility] Comment on above: Performed By: #### A YESENIA VILLAIFF, CBC ####[address] [address] Lymphocytes/100 WBC (Bld) 10.5 % Low 20.0-40.0 [facility] Comment on above: Performed By: #### A KENA VILLA, CBC ####[address] [address] Monocyte, Absolute 1.1 10 3/mcL Normal 0.1-1.4 [facility] Comment on above: Performed By: #### A YESENIA VILLAIFF, CBC ####[address] [address] Monocytes/100 WBC (Bld) 8.1 % Normal 2.0-13.0 [facility] Comment on above: Performed By: #### A KENA VILLA, CBC ####[address] [address] Neutrophils/100 WBC (Bld) 75.7 % High 50.0-75.0 [facility] Comment on above: Performed By: #### A YESENIA VILLAIFF, CBC ####[address] [address] Basophil, Absolute 0.0 10 3/mcL Normal 0.0-0.3 [facility] Comment on above: Performed By: #### 0 27262, ANAIFS, CBC, FES, GFR, HEPAC, MG, TSHR, FERR, [id number], RF, HIV, ANEU, ADIFF, BMP ####[address] [address] Basophils/100 WBC (Bld) 0.3 % Normal 0.0-2.5 [facility] Comment on above: Performed By: #### 0 32079, ANAIFS, CBC, FES, GFR, HEPAC, MG, TSHR, FERR, [id number], RF, HIV, ANEU, ADIFF, BMP ####[address] [address] Eosinophil, Absolute 0.8 10 3/mcL High 0.0-0.7 [facility] Comment on above: Performed By: #### 0 44417, ANAIFS, CBC, FES, GFR, HEPAC, MG, TSHR, FERR, [id number], RF, HIV, ANEU, ADIFF, BMP ####[address] [address] Eosinophils/100 WBC (Bld) 6.0 % Normal 0.0-6.0 [facility] Comment on above: Performed By: #### 0 20828, ANAIFS, CBC, FES, GFR, HEPAC, MG, TSHR, FERR, [id number], RF, HIV, ANEU, ADIFF, BMP ####[address] [address] Lymphocyte, Absolute 1.3 10 3/mcL Normal 0.9-4.3 [facility] Comment on above: Performed By: #### 0 51453, ANAIFS, CBC, FES, GFR, HEPAC, MG, TSHR, FERR, [id number], RF, HIV, ANEU, ADIFF, BMP ####[address] [address] Lymphocytes/100 WBC (Bld) 10.4 % Low 20.0-40.0 [facility] Comment on above: Performed By: #### 0 61763, ANAIFS, CBC, FES, GFR, HEPAC, MG, TSHR, FERR, [id number], RF, HIV, ANEU, ADIFF, BMP ####[address] [address] Monocyte, Absolute 1.1 10 3/mcL Normal 0.1-1.4 [facility] Comment on above: Performed By: #### 0 34035, ANAIFS, CBC, FES, GFR, HEPAC, MG, TSHR, FERR, [id number], RF, HIV, ANEU, ADIFF, BMP ####[address] [address] Monocytes/100 WBC (Bld) 8.9 % Normal 2.0-13.0 [facility] Comment on above: Performed By: #### 0 49044, ANAIFS, CBC, FES, GFR, HEPAC, MG, TSHR, FERR, 225781, RF, HIV, ANEU, ADIFF, BMP ####[address] [address] Neutrophils/100 WBC (Bld) 74.4 % Normal 50.0-75.0 [facility] Comment on above: Performed By: #### 0 69484, ANAIFS, CBC, FES, GFR, HEPAC, MG, TSHR, FERR, [id number], RF, HIV, ANEU, ADIFF, BMP ####[address] [address] .GFRon 05-21-2024 GFR/1.73 sq M.predicted among non-blacks MDRD (S/P/Bld) [Vol rate/Area] mL/min/{1.73_m2} Normal [facility] MA[facility] Comment on above: Result Comment: Stag [...] By: #### C MP, VBGC, LAC, GFR ####[place] [address] Estimated Glomerular Filtration Rate 118 ml/min/1.73sqm Normal [facility] MA[facility] Comment on above: Result Comment: Stag [...] calculate theeGFR results. Performed By: #### 0 37169, ANAIFS, CBC, FES, GFR, HEPAC, MG, TSHR, FERR, [id number], RF, HIV, ANEU, ADIFF, BMP ####[place] [address] .NEUABSon 05-21-2024 Neutrophil, Absolute 10.1 10 3/mcL High 2.3-8.1 [facility] Comment on above: Performed By: #### A DAISY, ADIFF, CBC ####[place] [address] Neutrophil, Absolute 9.4 10 3/mcL High 2.3-8.1 [facility] Comment on above: Performed By: #### 0 87999, ANAIFS, CBC, FES, GFR, HEPAC, MG, TSHR, FERR, 779133, RF, HIV, ANEU, ADIFF, BMP ####[place] [address] BMPon 05-21-2024 CO2 [Moles/Vol] mmol/L Critically abnormal 22-32 [facility] Comment on above: Performed By: #### 0 25448, ANAIFS, CBC, FES, GFR, HEPAC, MG, TSHR, FERR, [id number], RF, HIV, ANEU, ADIFF, BMP ####[address] [address] Electrolyte Balance Unable to Calculate Normal 4.0-15. 0 [facility] Comment on above: Result Comment: Unab le to calculate this test result accurately. Results used to calculate this test are outside the reportable range. Performed By: #### 0 85478, ANAIFS, CBC, FES, GFR, HEPAC, MG, TSHR, FERR, [id number], RF, HIV, ANEU, ADIFF, BMP ####[address] [address] BUN/Creatinine Ratio 40.0 ratio High 10.0-22.0 [facility] Comment on above: Performed By: #### 0 53605, ANAIFS, CBC, FES, GFR, HEPAC, MG, TSHR, FERR, [id number], RF, HIV, ANEU, ADIFF, BMP ####[address] [address] Calcium [Mass/Vol] 9.2 mg/dL Normal 8.7-10.[address] [facility] MA[facility] Comment on above: Performed By: #### 0 97114, ANAIFS, CBC, FES, GFR, HEPAC, MG, TSHR, FERR, [id number], RF, HIV, ANEU, ADIFF, BMP ####[place] [id number] Chloride [Moles/Vol] 95 mmol/L Low 98-110 [facility] MA[facility] Comment on above: Performed By: #### 0 81132, ANAIFS, CBC, FES, GFR, HEPAC, MG, TSHR, FERR, [id number], RF, HIV, ANEU, ADIFF, BMP ####[address] [address] Creatinine [Mass/Vol] 0.55 mg/dL Normal 0.50-1.20 [facility] Comment on above: Result Comment: Test ing performed on ApnaPaisa analyzer using enzymatic creatinine methodology. Performed By: #### 0 42220, ANAIFS, CBC, FES, GFR, HEPAC, MG, TSHR, FERR, [id number], RF, HIV, ANEU, ADIFF, BMP ####[address] [address] Glucose [Mass/Vol] 110 mg/dL Normal 70-[address] [facility] Comment on above: Performed By: #### 0 20976, ANAIFS, CBC, FES, GFR, HEPAC, MG, TSHR, FERR, [id number], RF, HIV, ANEU, ADIFF, BMP ####[address] [address] Potassium [Moles/Vol] 4.0 mmol/L Normal 3.5-5.0 [facility] Comment on above: Performed By: #### 0 38295, ANAIFS, CBC, FES, GFR, HEPAC, MG, TSHR, FERR, [id number], RF, HIV, ANEU, ADIFF, BMP ####[place] [id number] Sodium [Moles/Vol] 145 mmol/L Normal 136-[address] [facility] Comment on above: Performed By: #### 0 01025, ANAIFS, CBC, FES, GFR, HEPAC, MG, TSHR, FERR, [id number], RF, HIV, ANEU, ADIFF, BMP ####[place] [address] Urea nitrogen [Mass/Vol] 22.0 mg/dL Normal 8.0-22.0 [facility] Comment on above: Performed By: #### 0 83316, ANAIFS, CBC, FES, GFR, HEPAC, MG, TSHR, FERR, [id number], RF, HIV, ANEU, ADIFF, BMP ####[address] [address] CBCon 05-21-2024 Erythrocyte distribution width (RBC) [Ratio] 14.8 % Normal 11.5-15.5 [facility] Comment on above: Performed By: #### A DAISY, ADIFF, CBC ####[place] [address] Hematocrit (Bld) [Volume fraction] 32.8 % Low 34.0-46.0 [facility] Comment on above: Performed By: #### A KENA VILLA, CBC ####[place] [address] Hgb 10.6 G/dL Low 12.0-16.0 [facility] Comment on above: Performed By: #### A KENA VILLA, CBC ####[place] [address] MCH (RBC) [Entitic mass] 32.4 pg Normal 27.0-33.0 [facility] Comment on above: Performed By: #### A KENA VILLA, CBC ####[place] [address] MCHC 32.4 G/dL Normal 32.0-36.0 [facility] Comment on above: Performed By: #### A KENA VILLA, CBC ####[place] [address] MCV (RBC) [Entitic vol] 100.0 fL High 80.0-99.0 [facility] Comment on above: Performed By: #### A KENA VILLA, CBC ####[place] [address] Platelet 205 10 3/mcL Normal 150-450 [facility] MA[facility] Comment on above: Performed By: #### A KENA VILLA, CBC ####[place] [address] Platelet mean volume (Bld) [Entitic vol] 8.7 fL Normal 6.6-10.5 [facility] Comment on above: Performed By: #### A KENA VILLA, CBC ####[place] [address] RBC 3.28 10 6/mcL Low 4.10-5.30 [facility] Comment on above: Performed By: #### A KENA VILLA, CBC ####[place] [address] WBC 13.3 10 3/mcL High 4.5-10.8 [facility] Comment on above: Performed By: #### A YESENIA VILLAIFF, CBC ####[place] [address] Erythrocyte distribution width (RBC) [Ratio] 14.9 % Normal 11.5-15.5 [facility] Comment on above: Performed By: #### 0 59445, ANAIFS, CBC, FES, GFR, HEPAC, MG, TSHR, FERR, [id number], RF, HIV, ANEU, ADIFF, BMP ####[place] [address] Hematocrit (Bld) [Volume fraction] 32.4 % Low 34.0-46.0 [facility] Comment on above: Performed By: #### 0 81334, ANAIFS, CBC, FES, GFR, HEPAC, MG, TSHR, FERR, [id number], RF, HIV, ANEU, ADIFF, BMP ####[place] [address] Hgb 10.4 G/dL Low 12.0-16.0 [facility] Comment on above: Performed By: #### 0 64132, ANAIFS, CBC, FES, GFR, HEPAC, MG, TSHR, FERR, [id number], RF, HIV, ANEU, ADIFF, BMP ####[place] [address] MCH (RBC) [Entitic mass] 32.2 pg Normal 27.0-33.0 [facility] MA[facility] Comment on above: Performed By: #### 0 54237, ANAIFS, CBC, FES, GFR, HEPAC, MG, TSHR, FERR, [id number], RF, HIV, ANEU, ADIFF, BMP ####[place] [address] MCHC 32.0 G/dL Normal 32.0-36.0 [facility] Comment on above: Performed By: #### 0 66300, ANAIFS, CBC, FES, GFR, HEPAC, MG, TSHR, FERR, [id number], RF, HIV, ANEU, ADIFF, BMP ####[place] [id number] MCV (RBC) [Entitic vol] 100.7 fL High 80.0-99.0 [facility] MA[facility] Comment on above: Performed By: #### 0 95437, ANAIFS, CBC, FES, GFR, HEPAC, MG, TSHR, FERR, [id number], RF, HIV, ANEU, ADIFF, BMP ####[place] [address] Platelet 202 10 3/mcL Normal 150-450 [facility] MA[facility] Comment on above: Performed By: #### 0 12462, ANAIFS, CBC, FES, GFR, HEPAC, MG, TSHR, FERR, [id number], RF, HIV, ANEU, ADIFF, BMP ####[place] [address] Platelet mean volume (Bld) [Entitic vol] 8.7 fL Normal 6.6-10.5 [facility] MA[facility] Comment on above: Performed By: #### 0 08576, ANAIFS, CBC, FES, GFR, HEPAC, MG, TSHR, FERR, [id number], RF, HIV, ANEU, ADIFF, BMP ####[place] [address] RBC 3.22 10 6/mcL Low 4.10-5.30 [facility] Comment on above: Performed By: #### 0 30282, ANAIFS, CBC, FES, GFR, HEPAC, MG, TSHR, FERR, [id number], RF, HIV, ANEU, ADIFF, BMP ####[place] [address] WBC 12.6 10 3/mcL High 4.5-10.8 [facility] Comment on above: Performed By: #### 0 99362, ANAIFS, CBC, FES, GFR, HEPAC, MG, TSHR, FERR, 915269, RF, HIV, ANEU, ADIFF, BMP ####[place] [address] CMPon 05-21-2024 CO2 [Moles/Vol] mmol/L Critically abnormal -32 [facility] MA[facility] Comment on above: Performed By: #### C MP, VBGC, LAC, GFR ####[id number] [place], [place] [address] Electrolyte Balance Unable to Calculate Normal 4.0-15. 0 [facility] Comment on above: Result Comment: Unab le to calculate this test result accurately. Results used to calculate this test are outside the reportable range. Performed By: #### C MP, VBGC, LAC, GFR ####[address] [address] Albumin Level 2.7 G/dL Low 3.2-4.8 [facility] Comment on above: Performed By: #### C MP, VBGC, LAC, GFR ####[place] [address] Albumin/Globulin [Mass ratio] 0.7 {ratio} Low 0.9-1.6 [facility] Comment on above: Performed By: #### C MP, VBGC, LAC, GFR ####[address] [address] ALP [Catalytic activity/Vol] 84 U/L Normal 38-126 [facility] MA[facility] Comment on above: Performed By: #### C MP, VBGC, LAC, GFR ####[place] [id number] ALT [Catalytic activity/Vol] 25 U/L Normal 10-49 [facility] Comment on above: Performed By: #### C MP, VBGC, LAC, GFR ####[address] [address] AST [Catalytic activity/Vol] 21 U/L Normal 8-34 [facility] Comment on above: Performed By: #### C MP, VBGC, LAC, GFR ####[place] [id number] Bili Total 0.30 mg/dL Normal 0.20-1.20 [facility] MA[facility] Comment on above: Result Comment: Use of this assay is not recommended for patients undergoing treatment with eltrombopag due to the potential for falsely elevated results. Performed By: #### C MP, VBGC, LAC, GFR ####[place] [id number] BUN/Creatinine Ratio 42.5 ratio High 10.0-22.0 [facility] Comment on above: Performed By: #### C MP, VBGC, LAC, GFR ####[address] [address] Calcium [Mass/Vol] 9.2 mg/dL Normal 8.7-10.[address] [facility] MA[facility] Comment on above: Performed By: #### C MP, VBGC, LAC, GFR ####[address] [address] Chloride [Moles/Vol] 94 mmol/L Low 98-110 [facility] Comment on above: Performed By: #### C MP, VBGC, LAC, GFR ####[address] [address] Creatinine [Mass/Vol] 0.40 mg/dL Low 0.50-1.20 [facility] MA[facility] Comment on above: Result Comment: Test ing performed on ApnaPaisa analyzer using enzymatic creatinine methodology. Performed By: #### C MP, VBGC, LAC, GFR ####[address] [address] Globulin 3.9 G/dL High 1.5-3.8 [facility] MA[facility] Comment on above: Performed By: #### C MP, VBGC, LAC, GFR ####[address] [address] Glucose [Mass/Vol] 91 mg/dL Normal 70-[address] [facility] MA[facility] Comment on above: Performed By: #### C MP, VBGC, LAC, GFR ####[address] [address] Potassium [Moles/Vol] 4.2 mmol/L Normal 3.5-5.0 [facility] MA[facility] Comment on above: Performed By: #### C MP, VBGC, LAC, GFR ####[address] [address] Sodium [Moles/Vol] 141 mmol/L Normal 136-[address] [facility] MA[facility] Comment on above: Performed By: #### C MP, VBGC, LAC, GFR ####[address] [address] Total Protein 6.6 G/dL Normal 5.7-8.2 [facility] Comment on above: Performed By: #### C MP, VBGC, LAC, GFR ####[place] [address] Urea nitrogen [Mass/Vol] 17.0 mg/dL Normal 8.0-22.0 [facility] Comment on above: Performed By: #### C MP, VBGC, LAC, GFR ####[place] [address] [place] 05-21-2024 Ferritin [Mass/Vol] 97.0 ng/mL Normal 8.0-252.[address] [facility] MA[facility] Comment on above: Performed By: #### 0 03493, ANAIFS, CBC, FES, GFR, HEPAC, MG, TSHR, FERR, [id number], RF, HIV, ANEU, ADIFF, BMP ####[place] [address] FESon 05-21-2024 Iron [Mass/Vol] 78 ug/dL Normal 50-170 [facility] MAIN Comment on above: Performed By: #### 0 14506, ANAIFS, CBC, FES, GFR, HEPAC, MG, TSHR, FERR, [id number], RF, HIV, ANEU, ADIFF, BMP ####[place] [address] Iron Sat 23 % Normal [facility] MA[facility] Comment on above: Performed By: #### 0 86357, ANAIFS, CBC, FES, GFR, HEPAC, MG, TSHR, FERR, 845619, RF, HIV, ANEU, ADIFF, BMP ####[place] [address] TIBC 341 mcg/dL Normal 250-500 [facility] MAIN Comment on above: Performed By: #### 0 62675, ANAIFS, CBC, FES, GFR, HEPAC, MG, TSHR, FERR, [id number], RF, HIV, ANEU, ADIFF, BMP ####[place] [address] HEPACon 05-21-2024 Hep A IgM Ab Non-Reactive Normal Non-Reactive [facility] MAIN Comment on above: Performed By: #### 0 76386, ANAIFS, CBC, FES, GFR, HEPAC, MG, TSHR, FERR, 832652, RF, HIV, ANEU, ADIFF, BMP ####[place] [address] Hep A IgM Ab Int [facility] MAIN Comment on above: Result Comment: No s erological evidence of a current Hepatitis A infection.See Interp Performed By: #### 0 11601, ANAIFS, CBC, FES, GFR, HEPAC, MG, TSHR, FERR, [id number], RF, HIV, ANEU, ADIFF, BMP ####[place] [address] Hep B Core IgM Ab Non-Reactive Normal Non-Reactive [facility] MAIN Comment on above: Performed By: #### 0 81368, ANAIFS, CBC, FES, GFR, HEPAC, MG, TSHR, FERR, [id number], RF, HIV, ANEU, ADIFF, BMP ####[place] [address] Hep B Core IgM Ab Int [facility] MAIN Comment on above: Result Comment: Samp les with a value < 0.80 Index are considered nonreactive (negative) for IgM antibodies to hepatitis B core antigen.See Interp Performed By: #### 0 19069, ANAIFS, CBC, FES, GFR, HEPAC, MG, TSHR, FERR, [id number], RF, HIV, ANEU, ADIFF, BMP ####[place] [address] Hep B Surf Ag Non-Reactive Normal Non-Reactive [facility] MAIN Comment on above: Performed By: #### 0 66805, ANAIFS, CBC, FES, GFR, HEPAC, MG, TSHR, FERR, 668678, RF, HIV, ANEU, ADIFF, BMP ####[place] [address] Hep C Ab Non-Reactive Normal Non-[facility] MAIN Comment on above: Performed By: #### 0 74010, ANAIFS, CBC, FES, GFR, HEPAC, MG, TSHR, FERR, 200665, RF, HIV, ANEU, ADIFF, BMP ####[place] [address] Hep C Ab Int Normal [facility] MAIN Comment on above: Result Comment: Nonr eactive: Samples with a value < 0.80 are considered nonreactive (negative) for antibodies to HCV.A negative test result does not exclude the possibility of exposure to or infection with HCV. HCV antibodies may be undetectable in some stages of the infection and in some clinical conditions.See Interp Performed By: #### 0 30310, ANAIFS, CBC, FES, GFR, HEPAC, MG, TSHR, FERR, [id number], RF, HIV, ANEU, ADIFF, BMP ####[place] [address] HIVon 05-21-2024 HIV 1/2 Ab Non-Reactive Normal Non-Reactive [facility] MAIN Comment on above: Result Comment: Spec imen is negative for anti-HIV-1 and anti-HIV-2. Performed By: #### 0 68352, ANAIFS, CBC, FES, GFR, HEPAC, MG, TSHR, FERR, [id number], RF, HIV, ANEU, ADIFF, BMP ####[place] [address] LABORATORYOrdered By: SYSTEM SYSTEM on 05-21-2024 Albumin [...] - 4.780 mIU/mL ADM SS LABORATORYOrdered By: Agolo CONTRIBUTOR_SYSTEM on 05-21-2024 Anti-Scl-70 Abs (LC) 0.2 AI Invalid Interpretation Code 0.0-0.9 Sendouts Comment on above: Result Comment: Perf ormed At: [facility] [id number] Kesha Darden PhD Ph:[phone] Sjogrens SSA Ab (LC) AI Invalid Interpretation Code 0.0-0.9 AH Sendouts SS Sjogrens SSB Ab (LC) AI Invalid Interpretation Code 0.0-0.9 Sendouts Comment on above: Result Comment: Perf ormed At: [address] [id number] Kesha Darden PhD Ph:[phone] LABORATORYOrdered By: DEE CHAVEZ CONTRIBUTOR_SYSTEM on 05-21-2024 [...] immunoassay (IFA) using HEp-2 cells. Performed By: [facility] [address] [place] [address] Medical Sociologist: Bin Montes III, M.D. CLIA#: [id number] LABORATORYOrdered By: Sim Barclay on 05-21-2024 HAV [...] tests. These results were obtained with the to-BBBVA QUANTA Lite RF IgM GAETANO. RF IgM values obtained with different manufacturers' assay methods may not be used interchangeably. The magnitude of the reported IgM levels cannot be correlated to an endpoint titer. LACon 05-21-2024 Lactic Acid Lvl 0.6 mmol/L Normal 0.5-2.2 [facility] Comment on above: Performed By: #### C MP, VBGC, LAC, GFR ####[place] [address] MGon 05-21-2024 Magnesium [Mass/Vol] 2.4 mg/dL Normal 1.6-2.4 [facility] Comment on above: Performed By: #### 0 [id number], ANAIFS, CBC, FES, GFR, HEPAC, MG, TSHR, FERR, [id number], RF, HIV, ANEU, ADIFF, BMP ####[place] [address] TSHRon 05-21-2024 TSH 4.296 mIU/mL Normal 0.550-4.780 [facility] Comment on above: Performed By: #### 0 [id number], ANAIFS, CBC, FES, GFR, HEPAC, MG, TSHR, FERR, [id number], RF, HIV, ANEU, ADIFF, BMP ####[place] [address] VBG-Con 05-21-2024 BE Venous 17.7 mmol/L High -3.0-3.0 [facility] Comment on above: Order Comment: Draw via central line using ABG Syringe ONLY Performed By: #### C MP, VBGC, LAC, GFR ####[place] [address] CO2 [Moles/Vol] 51.4 mmol/L Critically abnormal 22.0-32.0 [facility] Comment on above: Order Comment: Draw via central line using ABG Syringe ONLY Performed By: #### C MP, VBGC, LAC, GFR ####[place] [address] HCO3 (Bld) [Moles/Vol] 48.4 mmol/L High 21.0-30.0 [facility] Comment on above: Order Comment: Draw via central line using ABG Syringe ONLY Performed By: #### C MP, VBGC, LAC, GFR ####[place] [address] Oxygen saturation in Blood 72.9 % Normal 70.0-75.0 [facility] MAIN Comment on above: Order Comment: Draw via central line using ABG Syringe ONLY Performed By: #### C MP, VBGC, LAC, GFR ####[place] [address] pCO2 Satish 100.1 mmHg High 41.0-51.0 [facility] MA[facility] Comment on above: Order Comment: Draw via central line using ABG Syringe ONLY Performed By: #### C MP, VBGC, LAC, GFR ####[place] [address] pH Venous 7.302 Low 7.380-7.460 [facility] Comment on above: Order Comment: Draw via central line using ABG Syringe ONLY Performed By: #### C MP, VBGC, LAC, GFR ####[place] [address] pO2 Satish 42.6 mmHg High 35.0-40.0 [facility] Comment on above: Order Comment: Draw via central line using ABG Syringe ONLY Performed By: #### C MP, VBGC, LAC, GFR ####[place] [address] .Auto Diffon 05-20-2024 Basophil, Absolute 0.0 10 3/mcL Normal 0.0-0.3 [facility] Comment on above: Performed By: #### A DIFF, ANEU, MG, BMP, CBC, GFR ####[place] [address] Basophils/100 WBC (Bld) 0.4 % Normal 0.0-2.5 [facility] Comment on above: Performed By: #### A DIFF, ANEU, MG, BMP, CBC, GFR ####[place] [address] Eosinophil, Absolute 0.5 10 3/mcL Normal 0.0-0.7 [facility] MAIN Comment on above: Performed By: #### A DIFF, ANEU, MG, BMP, CBC, GFR ####[place] [address] Eosinophils/100 WBC (Bld) 5.4 % Normal 0.0-6.0 [facility] Comment on above: Performed By: #### A DIFF, ANEU, MG, BMP, CBC, GFR ####[place] [address] Lymphocyte, Absolute 1.5 10 3/mcL Normal 0.9-4.3 [facility] MA[facility] Comment on above: Performed By: #### A DIFF, ANEU, MG, BMP, CBC, GFR ####[address] [address] Lymphocytes/100 WBC (Bld) 14.6 % Low 20.0-40.0 [facility] Comment on above: Performed By: #### A DIFF, ANEU, MG, BMP, CBC, GFR ####[address] [address] Monocyte, Absolute 0.9 10 3/mcL Normal 0.1-1.4 [facility] Comment on above: Performed By: #### A DIFF, ANEU, MG, BMP, CBC, GFR ####[address] [address] Monocytes/100 WBC (Bld) 8.7 % Normal 2.0-13.0 [facility] Comment on above: Performed By: #### A DIFF, ANEU, MG, BMP, CBC, GFR ####[address] [address] Neutrophils/100 WBC (Bld) 70.9 % Normal 50.0-75.0 [facility] Comment on above: Performed By: #### A DIFF, ANEU, MG, BMP, CBC, GFR ####[address] [address] .GFRon 05-20-2024 Estimated Glomerular Filtration Rate 117 ml/min/1.73sqm Normal [facility] MA[facility] Comment on above: Result Comment: Stag [...] By: #### V BGC, MG, GFR, CMP ####[place] [address] Estimated Glomerular Filtration Rate 114 ml/min/1.73sqm Normal [facility] MA[facility] Comment on above: Result Comment: Stag [...] A DIFF, ANEU, MG, BMP, CBC, GFR ####[place] [address] .NEUABSon 05-20-2024 Neutrophil, Absolute 7.1 10 3/mcL Normal 2.3-8.1 [facility] Comment on above: Performed By: #### A DIFF, ANEU, MG, BMP, CBC, GFR ####[place] [address] BMPon 05-20-2024 BUN/Creatinine Ratio 37.5 ratio High 10.0-22.0 [facility] Comment on above: Order Comment: vrb- called critical CO2 to RN Marcelina Siskiyou 05/20/2024 05:18:24 EDT SAS Performed By: #### A DIFF, ANEU, MG, BMP, CBC, GFR ####[place] [address] Calcium [Mass/Vol] 8.3 mg/dL Low 8.7-10.[address] [facility] MA[facility] Comment on above: Order Comment: vrb- called critical CO2 to RN Marcelina Siskiyou 05/20/2024 05:18:24 EDT SAS Performed By: #### A DIFF, ANEU, MG, BMP, CBC, GFR ####[address] [address] Chloride [Moles/Vol] 98 mmol/L Normal 98-110 [facility] Comment on above: Order Comment: vrb- called critical CO2 to RN Marcelina Siskiyou 05/20/2024 05:18:24 EDT SAS Performed By: #### A DIFF, ANEU, MG, BMP, CBC, GFR ####[address] [address] Creatinine [Mass/Vol] 0.64 mg/dL Normal 0.50-1.20 [facility] MA[facility] Comment on above: Order Comment: vrb- called critical CO2 to RN Marcelina Siskiyou 05/20/2024 05:18:24 EDT SAS Result Comment: Test ing performed on ApnaPaisa analyzer using enzymatic creatinine methodology. Performed By: #### A DIFF, ANEU, MG, BMP, CBC, GFR ####[address] [address] Glucose [Mass/Vol] 131 mg/dL High 70-[address] [facility] MA[facility] Comment on above: Order Comment: vrb- called critical CO2 to RN Marcelina Siskiyou 05/20/2024 05:18:24 EDT SAS Performed By: #### A DIFF, ANEU, MG, BMP, CBC, GFR ####[address] [address] Potassium [Moles/Vol] 3.9 mmol/L Normal 3.5-5.0 [facility] Comment on above: Order Comment: vrb- called critical CO2 to RN Marcelina Siskiyou 05/20/2024 05:18:24 EDT SAS Performed By: #### A DIFF, ANEU, MG, BMP, CBC, GFR ####[address] [address] Sodium [Moles/Vol] 147 mmol/L High 136-[address] [facility] MA[facility] Comment on above: Order Comment: vrb- called critical CO2 to RN Marcelina Siskiyou 05/20/2024 05:18:24 EDT SAS Performed By: #### A DIFF, ANEU, MG, BMP, CBC, GFR ####[address] [address] Urea nitrogen [Mass/Vol] 24.0 mg/dL High 8.0-22.0 [facility] Comment on above: Order Comment: vrb- called critical CO2 to RN Marcelina Gonzalezn 05/20/2024 05:18:24 EDT SAS Performed By: #### A DIFF, ANEU, MG, BMP, CBC, GFR ####[address] [address] CO2 [Moles/Vol] mmol/L Critically abnormal 22-32 [facility] Comment on above: Order Comment: vrb- called critical CO2 to RN Marcelina Gonzalezn 05/20/2024 05:18:24 EDT SAS Performed By: #### A DIFF, ANEU, MG, BMP, CBC, GFR ####[place] [address] Electrolyte Balance See Comment Normal 4.0-15.0 [facility] MA[facility] Comment on above: Order Comment: vrb- called critical CO2 to RN Marcelina Gonzalezn 05/20/2024 05:18:24 EDT SAS Result Comment: Unab le to calculate this test result accurately. Results used to calculate this test are outside the reportable range. Performed By: #### A DIFF, ANEU, MG, BMP, CBC, GFR ####[place] [address] CBCon 05-20-2024 Erythrocyte distribution width (RBC) [Ratio] 14.6 % Normal 11.5-15.5 [facility] MA[facility] Comment on above: Performed By: #### A DIFF, ANEU, MG, BMP, CBC, GFR ####[place] [address] Hematocrit (Bld) [Volume fraction] 29.8 % Low 34.0-46.0 [facility] MA[facility] Comment on above: Performed By: #### A DIFF, ANEU, MG, BMP, CBC, GFR ####[address] [address] Hgb 9.8 G/dL Low 12.0-16.0 [facility] MA[facility] Comment on above: Performed By: #### A DIFF, ANEU, MG, BMP, CBC, GFR ####[place] [address] MCH (RBC) [Entitic mass] 32.7 pg Normal 27.0-33.0 [facility] MA[facility] Comment on above: Performed By: #### A DIFF, ANEU, MG, BMP, CBC, GFR ####[place] [address] MCHC 32.8 G/dL Normal 32.0-36.0 [facility] Comment on above: Performed By: #### A DIFF, ANEU, MG, BMP, CBC, GFR ####[place] [address] MCV (RBC) [Entitic vol] 99.8 fL High 80.0-99.0 [facility] Comment on above: Performed By: #### A DIFF, ANEU, MG, BMP, CBC, GFR ####[place] [address] Platelet 192 10 3/mcL Normal 150-450 [facility] MA[facility] Comment on above: Performed By: #### A DIFF, ANEU, MG, BMP, CBC, GFR ####[place] [address] Platelet mean volume (Bld) [Entitic vol] 8.7 fL Normal 6.6-10.5 [facility] Comment on above: Performed By: #### A DIFF, ANEU, MG, BMP, CBC, GFR ####[place] [address] RBC 2.98 10 6/mcL Low 4.10-5.30 [facility] Comment on above: Performed By: #### A DIFF, ANEU, MG, BMP, CBC, GFR ####[place] [address] WBC 10.1 10 3/mcL Normal 4.5-10.8 [facility] Comment on above: Performed By: #### A DIFF, ANEU, MG, BMP, CBC, GFR ####[place] [address] CMPon 05-20-2024 CO2 [Moles/Vol] mmol/L Critically abnormal [facility] MA[facility] Comment on above: Performed By: #### V BGC, MG, GFR, CMP ####[place] [address] Electrolyte Balance Unable to Calculate Normal 4.0-15. 0 [facility] MA[facility] Comment on above: Result Comment: Unab le to calculate this test result accurately. Results used to calculate this test are outside the reportable range. Performed By: #### V BGC, MG, GFR, CMP ####[place] [address] Albumin Level 2.8 G/dL Low 3.2-4.8 [facility] MA[facility] Comment on above: Performed By: #### V BGC, MG, GFR, CMP ####[place] [address] Albumin/Globulin [Mass ratio] 0.6 {ratio} Low 0.9-1.6 [facility] MA[facility] Comment on above: Performed By: #### V BGC, MG, GFR, CMP ####[place] [address] ALP [Catalytic activity/Vol] 93 U/L Normal 38-126 [facility] MA[facility] Comment on above: Performed By: #### V BGC, MG, GFR, CMP ####[place] [address] ALT [Catalytic activity/Vol] 26 U/L Normal 10-49 [facility] MA[facility] Comment on above: Performed By: #### V BGC, MG, GFR, CMP ####[place] [address] AST [Catalytic activity/Vol] 17 U/L Normal 8-34 [facility] MA[facility] Comment on above: Performed By: #### V BGC, MG, GFR, CMP ####[place] [address] Bili Total 0.40 mg/dL Normal 0.20-1.20 [facility] MA[facility] Comment on above: Result Comment: Use of this assay is not recommended for patients undergoing treatment with eltrombopag due to the potential for falsely elevated results. Performed By: #### V BGC, MG, GFR, CMP ####[place] [address] BUN/Creatinine Ratio 39.7 ratio High 10.0-22.0 [facility] Comment on above: Performed By: #### V BGC, MG, GFR, CMP ####[address] [address] Calcium [Mass/Vol] 9.0 mg/dL Normal 8.7-10.[address] [facility] MAIN Comment on above: Performed By: #### V BGC, MG, GFR, CMP ####[address] [address] Chloride [Moles/Vol] 93 mmol/L Low 98-110 [facility] MA[facility] Comment on above: Performed By: #### V BGC, MG, GFR, CMP ####[address] [address] Creatinine [Mass/Vol] 0.58 mg/dL Normal 0.50-1.20 [facility] MA[facility] Comment on above: Result Comment: Test ing performed on ApnaPaisa analyzer using enzymatic creatinine methodology. Performed By: #### V BGC, MG, GFR, CMP ####[address] [address] Globulin 4.4 G/dL High 1.5-3.8 [facility] MA[facility] Comment on above: Performed By: #### V BGC, MG, GFR, CMP ####[address] [address] Glucose [Mass/Vol] 101 mg/dL Normal 70-[address] [facility] MA[facility] Comment on above: Performed By: #### V BGC, MG, GFR, CMP ####[address] [address] Potassium [Moles/Vol] 4.2 mmol/L Normal 3.5-5.0 [facility] MA[facility] Comment on above: Performed By: #### V BGC, MG, GFR, CMP ####[address] [address] Sodium [Moles/Vol] 142 mmol/L Normal 136-[address] [facility] MA[facility] Comment on above: Performed By: #### V BGC, MG, GFR, CMP ####[place] [address] Total Protein 7.2 G/dL Normal 5.7-8.2 [facility] MA[facility] Comment on above: Performed By: #### V BGC, MG, GFR, CMP ####[place] [address] Urea nitrogen [Mass/Vol] 23.0 mg/dL High 8.0-22.0 [facility] MA[facility] Comment on above: Performed By: #### V BGC, MG, GFR, CMP ####[place] [address] CT ANGIOGRAPHY CHEST W/CONTR Leonel 05-20-2024 CT ANGIOGRAPHY CHEST W/CONTRAST Normal [facility] MAIN LABORATORYOrdered By: SYSTEM SYSTEM on 05-20-2024 [...] 05-20-2024 Magnesium [Mass/Vol] 2.2 mg/dL Normal 1.6-2.4 [facility] MA[facility] Comment on above: Performed By: #### V BGC, MG, GFR, CMP ####[place] [address] Magnesium [Mass/Vol] 2.1 mg/dL Normal 1.6-2.4 [facility] MA[facility] Comment on above: Performed By: #### A DIFF, ANEU, MG, BMP, CBC, GFR ####[place] [address] VBG-Con 05-20-2024 BE Venous 19.3 mmol/L High -3.0-3.0 [facility] MA[facility] Comment on above: Order Comment: Draw via central line using ABG Syringe ONLY Performed By: #### V BGC, MG, GFR, CMP ####[place] [address] CO2 [Moles/Vol] 53.1 mmol/L Critically abnormal 22.0-32.0 [facility] MAIN Comment on above: Order Comment: Draw via central line using ABG Syringe ONLY Performed By: #### V BGC, MG, GFR, CMP ####[place] [address] HCO3 (Bld) [Moles/Vol] 50.0 mmol/L High 21.0-30.0 [facility] MAIN Comment on above: Order Comment: Draw via central line using ABG Syringe ONLY Performed By: #### V BGC, MG, GFR, CMP ####[place] [address] Oxygen saturation in Blood 70.4 % Normal 70.0-75.0 [facility] MA[facility] Comment on above: Order Comment: Draw via central line using ABG Syringe ONLY Performed By: #### V BGC, MG, GFR, CMP ####[place] [address] pCO2 Satish 98.9 mmHg High 41.0-51.0 [facility] MA[facility] Comment on above: Order Comment: Draw via central line using ABG Syringe ONLY Performed By: #### V BGC, MG, GFR, CMP ####[place] [address] pH Venous 7.322 Low 7.380-7.460 [facility] MA[facility] Comment on above: Order Comment: Draw via central line using ABG Syringe ONLY Performed By: #### V BGC, MG, GFR, CMP ####[place] [address] pO2 Satish 40.4 mmHg High 35.0-40.0 [facility] MA[facility] Comment on above: Order Comment: Draw via central line using ABG Syringe ONLY Performed By: #### V BGC, MG, GFR, CMP ####[address] [address] .Auto Diffon 05-19-2024 Basophil, Absolute 0.0 10 3/mcL Normal 0.0-0.3 [facility] MA[facility] Comment on above: Performed By: #### C BC, ANEU, GFR, MG, BMP, ADIFF ####[address] [address] Basophils/100 WBC (Bld) 0.2 % Normal 0.0-2.5 [facility] MA[facility] Comment on above: Performed By: #### C BC, ANEU, GFR, MG, BMP, ADIFF ####[address] [address] Eosinophil, Absolute 0.6 10 3/mcL Normal 0.0-0.7 [facility] MA[facility] Comment on above: Performed By: #### C BC, ANEU, GFR, MG, BMP, ADIFF ####[address] [address] Eosinophils/100 WBC (Bld) 5.1 % Normal 0.0-6.0 [facility] Comment on above: Performed By: #### C BC, ANEU, GFR, MG, BMP, ADIFF ####[address] [address] Lymphocyte, Absolute 1.1 10 3/mcL Normal 0.9-4.3 [facility] MA[facility] Comment on above: Performed By: #### C BC, ANEU, GFR, MG, BMP, ADIFF ####[address] [address] Lymphocytes/100 WBC (Bld) 8.9 % Low 20.0-40.0 [facility] Comment on above: Performed By: #### C BC, ANEU, GFR, MG, BMP, ADIFF ####[address] [address] Monocyte, Absolute 1.0 10 3/mcL Normal 0.1-1.4 [facility] Comment on above: Performed By: #### C BC, ANEU, GFR, MG, BMP, ADIFF ####[address] [address] Monocytes/100 WBC (Bld) 7.7 % Normal 2.0-13.0 [facility] MA[facility] Comment on above: Performed By: #### C BC, ANEU, GFR, MG, BMP, ADIFF ####[address] [address] Neutrophils/100 WBC (Bld) 78.1 % High 50.0-75.0 [facility] MA[facility] Comment on above: Performed By: #### C BC, ANEU, GFR, MG, BMP, ADIFF ####[place] [id number] .GFRon 05-19-2024 Estimated Glomerular Filtration Rate 117 ml/min/1.73sqm Normal [facility] MA[facility] Comment on above: Result Comment: Stag [...] C BC, ANEU, GFR, MG, BMP, ADIFF ####[address] [address] .NEUABSon 05-19-2024 Neutrophil, Absolute 9.8 10 3/mcL High 2.3-8.1 [facility] MA[facility] Comment on above: Performed By: #### C BC, ANEU, GFR, MG, BMP, ADIFF ####[address] [address] BMPon 05-19-2024 CO2 [Moles/Vol] mmol/L Critically abnormal 22-32 [facility] MA[facility] Comment on above: Performed By: #### C BC, ANEU, GFR, MG, BMP, ADIFF ####[address] [address] Electrolyte Balance Unable to Calculate Normal 4.0-15. 0 [facility] MA[facility] Comment on above: Result Comment: Unab le to calculate this test result accurately. Results used to calculate this test are outside the reportable range. Performed By: #### C BC, ANEU, GFR, MG, BMP, ADIFF ####[address] [address] BUN/Creatinine Ratio 39.7 ratio High 10.0-22.0 [facility] Comment on above: Performed By: #### C BC, ANEU, GFR, MG, BMP, ADIFF ####[address] [address] Creatinine [Mass/Vol] 0.58 mg/dL Normal 0.50-1.20 [facility] Comment on above: Result Comment: Test ing performed on ApnaPaisa analyzer using enzymatic creatinine methodology. Performed By: #### C BC, ANEU, GFR, MG, BMP, ADIFF ####[address] [address] Calcium [Mass/Vol] 8.6 mg/dL Low 8.7-10.[address] [facility] MA[facility] Comment on above: Performed By: #### C BC, ANEU, GFR, MG, BMP, ADIFF ####[address] [address] Chloride [Moles/Vol] 95 mmol/L Low 98-110 [facility] Comment on above: Performed By: #### C BC, ANEU, GFR, MG, BMP, ADIFF ####[address] [address] Glucose [Mass/Vol] 107 mg/dL Normal 70-[address] [facility] Comment on above: Performed By: #### C BC, ANEU, GFR, MG, BMP, ADIFF ####[address] [address] Potassium [Moles/Vol] 3.7 mmol/L Normal 3.5-5.0 [facility] Comment on above: Performed By: #### C BC, ANEU, GFR, MG, BMP, ADIFF ####[place] [address] Sodium [Moles/Vol] 145 mmol/L Normal 136-[address] [facility] Comment on above: Performed By: #### C BC, ANEU, GFR, MG, BMP, ADIFF ####[place] [address] Urea nitrogen [Mass/Vol] 23.0 mg/dL High 8.0-22.0 [facility] Comment on above: Performed By: #### C BC, ANEU, GFR, MG, BMP, ADIFF ####[place] [address] CBCon 05-19-2024 Erythrocyte distribution width (RBC) [Ratio] 15.4 % Normal 11.5-15.5 [facility] MA[facility] Comment on above: Performed By: #### C BC, ANEU, GFR, MG, BMP, ADIFF ####[place] [address] Hematocrit (Bld) [Volume fraction] 31.9 % Low 34.0-46.0 [facility] MA[facility] Comment on above: Performed By: #### C BC, ANEU, GFR, MG, BMP, ADIFF ####[place] [address] Hgb 10.2 G/dL Low 12.0-16.0 [facility] MA[facility] Comment on above: Performed By: #### C BC, ANEU, GFR, MG, BMP, ADIFF ####[place] [address] MCH (RBC) [Entitic mass] 31.8 pg Normal 27.0-33.0 [facility] Comment on above: Performed By: #### C BC, ANEU, GFR, MG, BMP, ADIFF ####[place] [address] MCHC 31.8 G/dL Low 32.0-36.0 [facility] MA[facility] Comment on above: Performed By: #### C BC, ANEU, GFR, MG, BMP, ADIFF ####[place] [address] MCV (RBC) [Entitic vol] 100.1 fL High 80.0-99.0 [facility] MA[facility] Comment on above: Performed By: #### C BC, ANEU, GFR, MG, BMP, ADIFF ####[place] [address] Platelet 214 10 3/mcL Normal 150-450 [facility] MA[facility] Comment on above: Performed By: #### C BC, ANEU, GFR, MG, BMP, ADIFF ####[place] [address] Platelet mean volume (Bld) [Entitic vol] 8.7 fL Normal 6.6-10.5 [facility] MA[facility] Comment on above: Performed By: #### C BC, ANEU, GFR, MG, BMP, ADIFF ####[place] [address] RBC 3.19 10 6/mcL Low 4.10-5.30 [facility] MA[facility] Comment on above: Performed By: #### C BC, ANEU, GFR, MG, BMP, ADIFF ####[place] [address] WBC 12.6 10 3/mcL High 4.5-10.8 [facility] Comment on above: Performed By: #### C BC, ANEU, GFR, MG, BMP, ADIFF ####[place] [address] MGon 05-19-2024 Magnesium [Mass/Vol] 1.8 mg/dL Normal 1.6-2.4 [facility] Comment on above: Performed By: #### C BC, ANEU, GFR, MG, BMP, ADIFF ####[place] [address] XR CHEST 1 VIEWon 05-19-2024 XR CHEST 1 VIEW Normal [facility] .Auto Diffon 05-18-2024 Basophil, Absolute 0.0 10 3/mcL Normal 0.0-0.3 [facility] Comment on above: Performed By: #### P BNP, CMP, MG, LAC, GFR, CBC, ADIFF, ANEU ####[address] [address] Basophils/100 WBC (Bld) 0.3 % Normal 0.0-2.5 [facility] MA[facility] Comment on above: Performed By: #### P BNP, CMP, MG, LAC, GFR, CBC, ADIFF, ANEU ####[address] [address] Eosinophil, Absolute 0.7 10 3/mcL Normal 0.0-0.7 [facility] MA[facility] Comment on above: Performed By: #### P BNP, CMP, MG, LAC, GFR, CBC, ADIFF, ANEU ####[address] [address] Eosinophils/100 WBC (Bld) 4.7 % Normal 0.0-6.0 [facility] MA[facility] Comment on above: Performed By: #### P BNP, CMP, MG, LAC, GFR, CBC, ADIFF, ANEU ####[address] [address] Lymphocyte, Absolute 0.9 10 3/mcL Normal 0.9-4.3 [facility] Comment on above: Performed By: #### P BNP, CMP, MG, LAC, GFR, CBC, ADIFF, ANEU ####[address] [address] Lymphocytes/100 WBC (Bld) 6.5 % Low 20.0-40.0 [facility] MA[facility] Comment on above: Performed By: #### P BNP, CMP, MG, LAC, GFR, CBC, ADIFF, ANEU ####[address] [address] Monocyte, Absolute 0.9 10 3/mcL Normal 0.1-1.4 [facility] MA[facility] Comment on above: Performed By: #### P BNP, CMP, MG, LAC, GFR, CBC, ADIFF, ANEU ####[address] [address] Monocytes/100 WBC (Bld) 6.8 % Normal 2.0-13.0 [facility] Comment on above: Performed By: #### P BNP, CMP, MG, LAC, GFR, CBC, ADIFF, ANEU ####[address] [address] Neutrophils/100 WBC (Bld) 81.7 % High 50.0-75.0 [facility] MA[facility] Comment on above: Performed By: #### P BNP, CMP, MG, LAC, GFR, CBC, ADIFF, ANEU ####[address] [address] .GFRon 05-18-2024 GFR/1.73 sq M.predicted among non-blacks MDRD (S/P/Bld) [Vol rate/Area] mL/min/{1.73_m2} Normal [facility] MA[facility] Comment on above: Result Comment: Stag [...] CMP, MG, LAC, GFR, CBC, ADIFF, ANEU ####[address] [address] .NEUABSon 05-18-2024 Neutrophil, Absolute 11.3 10 3/mcL High 2.3-8.1 [facility] Comment on above: Performed By: #### P BNP, CMP, MG, LAC, GFR, CBC, ADIFF, ANEU ####[address] [address] BGon 05-18-2024 Base excess Calc (Bld) [Moles/Vol] 17.0 mmol/L [facility] MAIN Comment on above: Performed By: #### B G ####[place] [address] CO2 [Moles/Vol] 46.5 mmol/L Critically abnormal 22.0-30.0 [facility] MAIN Comment on above: Performed By: #### B G ####[place] [id number] HCO3 (Bld) [Moles/Vol] 44.5 mmol/L High 21.0-29.0 [facility] MAIN Comment on above: Performed By: #### B G ####[place] [address] Oxygen (Bld) [Partial pressure] 74.7 mm[Hg] Normal 74.0-108.0 [facility] MAIN Comment on above: Performed By: #### B G ####[place] [address] Oxygen saturation in Blood 95.6 % Normal 92.0-96.0 [facility] MAIN Comment on above: Performed By: #### B G ####[place] [address] pCO2 68.2 mmHg Critically abnormal 32.0-46.0 [facility] MAIN Comment on above: Performed By: #### B G ####[place] [id number] pH (Bld) 7.432 [pH] Normal 7.380-7.460 [facility] MAIN Comment on above: Performed By: #### B G ####[place] [address] Base excess Calc (Bld) [Moles/Vol] 13.7 mmol/L Normal [facility] MAIN Comment on above: Performed By: #### B G ####[place] [id number] CO2 [Moles/Vol] 47.0 mmol/L Critically abnormal 22.0-30.0 [facility] MAIN Comment on above: Performed By: #### B G ####[place] [id number] HCO3 (Bld) [Moles/Vol] 44.2 mmol/L High 21.0-29.0 [facility] MAIN Comment on above: Performed By: #### B G ####[address] [address] Oxygen (Bld) [Partial pressure] 162.9 mm[Hg] High 74.0-108.0 [facility] MAIN Comment on above: Performed By: #### B G ####[place] [address] Oxygen saturation in Blood 99.4 % High 92.0-96.0 [facility] MAIN Comment on above: Performed By: #### B G ####[place] [address] pCO2 93.5 mmHg Critically abnormal 32.0-46.0 [facility] MA[facility] Comment on above: Performed By: #### B G ####[place] [address] pH (Bld) 7.292 [pH] Low 7.380-7.460 [facility] MA[facility] Comment on above: Performed By: #### B G ####[place] [address] CBCon 05-18-2024 Erythrocyte distribution width (RBC) [Ratio] 14.4 % Normal 11.5-15.5 [facility] MA[facility] Comment on above: Performed By: #### P BNP, CMP, MG, LAC, GFR, CBC, ADIFF, ANEU ####[place] [address] Hematocrit (Bld) [Volume fraction] 33.5 % Low 34.0-46.0 [facility] MA[facility] Comment on above: Performed By: #### P BNP, CMP, MG, LAC, GFR, CBC, ADIFF, ANEU ####[place] [address] Hgb 11.1 G/dL Low 12.0-16.0 [facility] MA[facility] Comment on above: Performed By: #### P BNP, CMP, MG, LAC, GFR, CBC, ADIFF, ANEU ####[place] [address] MCH (RBC) [Entitic mass] 32.6 pg Normal 27.0-33.0 [facility] Comment on above: Performed By: #### P BNP, CMP, MG, LAC, GFR, CBC, ADIFF, ANEU ####[place] [address] MCHC 33.2 G/dL Normal 32.0-36.0 [facility] Comment on above: Performed By: #### P BNP, CMP, MG, LAC, GFR, CBC, ADIFF, ANEU ####[place] [address] MCV (RBC) [Entitic vol] 98.3 fL Normal 80.0-99.0 [facility] MA[facility] Comment on above: Performed By: #### P BNP, CMP, MG, LAC, GFR, CBC, ADIFF, ANEU ####[place] [address] Platelet 217 10 3/mcL Normal 150-450 [facility] MA[facility] Comment on above: Performed By: #### P BNP, CMP, MG, LAC, GFR, CBC, ADIFF, ANEU ####[place] [address] Platelet mean volume (Bld) [Entitic vol] 9.1 fL Normal 6.6-10.5 [facility] Comment on above: Performed By: #### P BNP, CMP, MG, LAC, GFR, CBC, ADIFF, ANEU ####[place] [address] RBC 3.41 10 6/mcL Low 4.10-5.30 [facility] Comment on above: Performed By: #### P BNP, CMP, MG, LAC, GFR, CBC, ADIFF, ANEU ####[place] [address] WBC 13.9 10 3/mcL High 4.5-10.8 [facility] Comment on above: Performed By: #### P BNP, CMP, MG, LAC, GFR, CBC, ADIFF, ANEU ####[place] [address] CMPon 05-18-2024 CO2 [Moles/Vol] mmol/L Critically abnormal 22-32 [facility] Comment on above: Performed By: #### P BNP, CMP, MG, LAC, GFR, CBC, ADIFF, ANEU ####[place] [address] Electrolyte Balance Unable to Calculate Normal 4.0-15. 0 [facility] Comment on above: Result Comment: Unab le to calculate this test result accurately. Results used to calculate this test are outside the reportable range. Performed By: #### P BNP, CMP, MG, LAC, GFR, CBC, ADIFF, ANEU ####[place] [address] Albumin Level 2.7 G/dL Low 3.2-4.8 [facility] Comment on above: Performed By: #### P BNP, CMP, MG, LAC, GFR, CBC, ADIFF, ANEU ####[place] [id number] Albumin/Globulin [Mass ratio] 0.6 {ratio} Low 0.9-1.6 [facility] MA[facility] Comment on above: Performed By: #### P BNP, CMP, MG, LAC, GFR, CBC, ADIFF, ANEU ####[place] [address] ALP [Catalytic activity/Vol] 95 U/L Normal 38-126 [facility] Comment on above: Performed By: #### P BNP, CMP, MG, LAC, GFR, CBC, ADIFF, ANEU ####[place] [address] ALT [Catalytic activity/Vol] 32 U/L Normal 10-49 [facility] Comment on above: Performed By: #### P BNP, CMP, MG, LAC, GFR, CBC, ADIFF, ANEU ####[place] [address] AST [Catalytic activity/Vol] 22 U/L Normal 8-34 [facility] Comment on above: Performed By: #### P BNP, CMP, MG, LAC, GFR, CBC, ADIFF, ANEU ####[place] [address] Bili Total 0.30 mg/dL Normal 0.20-1.20 [facility] Comment on above: Result Comment: Use of this assay is not recommended for patients undergoing treatment with eltrombopag due to the potential for falsely elevated results. Performed By: #### P BNP, CMP, MG, LAC, GFR, CBC, ADIFF, ANEU ####[place] [id number] BUN/Creatinine Ratio 52.6 ratio High 10.0-22.0 [facility] Comment on above: Performed By: #### P BNP, CMP, MG, LAC, GFR, CBC, ADIFF, ANEU ####[place] [id number] Calcium [Mass/Vol] 9.4 mg/dL Normal 8.7-10.[address] [facility] MA[facility] Comment on above: Performed By: #### P BNP, CMP, MG, LAC, GFR, CBC, ADIFF, ANEU ####[place] [address] Chloride [Moles/Vol] 96 mmol/L Low 98-110 [facility] MA[facility] Comment on above: Performed By: #### P BNP, CMP, MG, LAC, GFR, CBC, ADIFF, ANEU ####[place] [address] Creatinine [Mass/Vol] 0.38 mg/dL Low 0.50-1.20 [facility] MA[facility] Comment on above: Result Comment: Test ing performed on ApnaPaisa analyzer using enzymatic creatinine methodology. Performed By: #### P BNP, CMP, MG, LAC, GFR, CBC, ADIFF, ANEU ####[place] [id number] Globulin 4.3 G/dL High 1.5-3.8 [facility] Comment on above: Performed By: #### P BNP, CMP, MG, LAC, GFR, CBC, ADIFF, ANEU ####[place] [id number] Glucose [Mass/Vol] 98 mg/dL Normal 70-[address] [facility] MA[facility] Comment on above: Performed By: #### P BNP, CMP, MG, LAC, GFR, CBC, ADIFF, ANEU ####[place] [address] Potassium [Moles/Vol] 3.5 mmol/L Normal 3.5-5.0 [facility] Comment on above: Performed By: #### P BNP, CMP, MG, LAC, GFR, CBC, ADIFF, ANEU ####[place] [address] Sodium [Moles/Vol] 144 mmol/L Normal 136-[address] [facility] Comment on above: Performed By: #### P BNP, CMP, MG, LAC, GFR, CBC, ADIFF, ANEU ####[place] [address] Total Protein 7.0 G/dL Normal 5.7-8.2 [facility] Comment on above: Performed By: #### P BNP, CMP, MG, LAC, GFR, CBC, ADIFF, ANEU ####[place] [address] Urea nitrogen [Mass/Vol] 20.0 mg/dL Normal 8.0-22.0 [facility] Comment on above: Performed By: #### P BNP, CMP, MG, LAC, GFR, CBC, ADIFF, ANEU ####[place] [address] LABORATORYOrdered By: SYSTEM SYSTEM on 05-18-2024 Albumin [...] Lactic Acid Lvl 0.5 mmol/L Normal 0.5-2.2 [facility] Comment on above: Performed By: #### P BNP, CMP, MG, LAC, GFR, CBC, ADIFF, ANEU ####[address] [address] MGon 05-18-2024 Magnesium [Mass/Vol] 2.0 mg/dL Normal 1.6-2.4 [facility] Comment on above: Performed By: #### P BNP, CMP, MG, LAC, GFR, CBC, ADIFF, ANEU ####[place] [address] PBNPon 05-18-2024 Natriuretic peptide B (Bld) [Mass/Vol] 1334 pg/mL High 0-450 [facility] MA[facility] Comment on above: Performed By: #### P BNP, CMP, MG, LAC, GFR, CBC, ADIFF, ANEU ####[place] [address] VBG-Con 05-18-2024 BE Venous 18.3 mmol/L High -3.0-3.0 [facility] MA[facility] Comment on above: Order Comment: Draw via central line using ABG Syringe ONLY Performed By: #### V BGC ####[place] [address] CO2 [Moles/Vol] 49.3 mmol/L Critically abnormal 22.0-32.0 [facility] MA[facility] Comment on above: Order Comment: Draw via central line using ABG Syringe ONLY Performed By: #### V BGC ####[place] [address] HCO3 (Bld) [Moles/Vol] 46.9 mmol/L High 21.0-30.0 [facility] Comment on above: Order Comment: Draw via central line using ABG Syringe ONLY Performed By: #### V BGC ####[place] [address] Oxygen saturation in Blood 68.6 % Low 70.0-75.0 [facility] Comment on above: Order Comment: Draw via central line using ABG Syringe ONLY Performed By: #### V BGC ####[place] [address] pCO2 Satish 78.7 mmHg High 41.0-51.0 [facility] Comment on above: Order Comment: Draw via central line using ABG Syringe ONLY Performed By: #### V BGC ####[address] [address] pH Venous 7.393 Normal 7.380-7.460 [facility] MA[facility] Comment on above: Order Comment: Draw via central line using ABG Syringe ONLY Performed By: #### V BGC ####[address] [address] pO2 Satish 34.4 mmHg Low 35.0-40.0 [facility] Comment on above: Order Comment: Draw via central line using ABG Syringe ONLY Performed By: #### V [facility] ####[place] [address] XR CHEST 1 VIEWon 05-18-2024 XR CHEST 1 VIEW Normal [facility] MA[facility] .Auto Diffon 05-17-2024 Basophil, Absolute 0.1 10 3/mcL Normal 0.0-0.3 [facility] Comment on above: Performed By: #### A DIFF, ANEU, LIPID, CBC, GFR, PBNP, MG, BMP ####[place] [address] Basophils/100 WBC (Bld) 0.3 % Normal 0.0-2.5 [facility] MA[facility] Comment on above: Performed By: #### A DIFF, ANEU, LIPID, CBC, GFR, PBNP, MG, BMP ####[place] [address] Eosinophil, Absolute 0.8 10 3/mcL High 0.0-0.7 [facility] MAIN Comment on above: Performed By: #### A DIFF, ANEU, LIPID, CBC, GFR, PBNP, MG, BMP ####[address] [address] Eosinophils/100 WBC (Bld) 4.7 % Normal 0.0-6.0 [facility] MA[facility] Comment on above: Performed By: #### A DIFF, ANEU, LIPID, CBC, GFR, PBNP, MG, BMP ####[address] [address] Lymphocyte, Absolute 1.5 10 3/mcL Normal 0.9-4.3 [facility] MAIN Comment on above: Performed By: #### A DIFF, ANEU, LIPID, CBC, GFR, PBNP, MG, BMP ####[address] [address] Lymphocytes/100 WBC (Bld) 9.2 % Low 20.0-40.0 [facility] MA[facility] Comment on above: Performed By: #### A DIFF, ANEU, LIPID, CBC, GFR, PBNP, MG, BMP ####[address] [address] Monocyte, Absolute 1.2 10 3/mcL Normal 0.1-1.4 [facility] MA[facility] Comment on above: Performed By: #### A DIFF, ANEU, LIPID, CBC, GFR, PBNP, MG, BMP ####[address] [address] Monocytes/100 WBC (Bld) 7.5 % Normal 2.0-13.0 [facility] MA[facility] Comment on above: Performed By: #### A DIFF, ANEU, LIPID, CBC, GFR, PBNP, MG, BMP ####[address] [address] Neutrophils/100 WBC (Bld) 78.3 % High 50.0-75.0 [facility] MA[facility] Comment on above: Performed By: #### A DIFF, ANEU, LIPID, CBC, GFR, PBNP, MG, BMP ####[address] [address] .GFRon 05-17-2024 Estimated Glomerular Filtration Rate 113 ml/min/1.73sqm Normal [facility] MA[facility] Comment on above: Result Comment: Stag [...] Performed By: #### G FR, BMP, MG ####[place] [address] Estimated Glomerular Filtration Rate 120 ml/min/1.73sqm [facility] MAIN Comment on above: Result Comment: [...] ANEU, LIPID, CBC, GFR, PBNP, MG, BMP ####[place] [address] .NEUABSon 05-17-2024 Neutrophil, Absolute 12.6 10 3/mcL High 2.3-8.1 [facility] MAIN Comment on above: Performed By: #### A DIFF, ANEU, LIPID, CBC, GFR, PBNP, MG, BMP ####[place] [address] BGon 05-17-2024 Base excess Calc (Bld) [Moles/Vol] 10.6 mmol/L [facility] MAIN Comment on above: Performed By: #### B G ####[place] [address] CO2 [Moles/Vol] 43.7 mmol/L Critically abnormal 22.0-30.0 [facility] MA[facility] Comment on above: Performed By: #### B G ####[place] [address] HCO3 (Bld) [Moles/Vol] 41.0 mmol/L High 21.0-29.0 [facility] MAIN Comment on above: Performed By: #### B G ####[place] [id number] Oxygen (Bld) [Partial pressure] 127.6 mm[Hg] High 74.0-108.0 [facility] MAIN Comment on above: Performed By: #### B G ####[place] [address] Oxygen saturation in Blood 98.4 % High 92.0-96.0 [facility] MA[facility] Comment on above: Performed By: #### B G ####[address] [address] pCO2 89.0 mmHg Critically abnormal 32.0-46.0 [facility] MA[facility] Comment on above: Performed By: #### B G ####[place] [id number] pH (Bld) 7.281 [pH] Low 7.380-7.460 [facility] MAIN Comment on above: Performed By: #### B G ####[place] [id number] Base excess Calc (Bld) [Moles/Vol] 11.1 mmol/L Normal [facility] MAIN Comment on above: Performed By: #### B G ####[place] [id number] CO2 [Moles/Vol] 43.7 mmol/L Critically abnormal 22.0-30.0 [facility] MAIN Comment on above: Performed By: #### B G ####[place] [id number] HCO3 (Bld) [Moles/Vol] 41.0 mmol/L High 21.0-29.0 [facility] MAIN Comment on above: Performed By: #### B G ####[address] [address] Oxygen (Bld) [Partial pressure] 63.4 mm[Hg] Low 74.0-108.0 [facility] MAIN Comment on above: Performed By: #### B G ####[place] [address] Oxygen saturation in Blood 91.3 % Low 92.0-96.0 [facility] MAIN Comment on above: Performed By: #### B G ####[address] [address] pCO2 86.1 mmHg Critically abnormal 32.0-46.0 [facility] MAIN Comment on above: Performed By: #### B G ####[place] [address] pH (Bld) 7.296 [pH] Low 7.380-7.460 [facility] MAIN Comment on above: Performed By: #### B G ####[place] [address] BMPon 05-17-2024 BUN/Creatinine Ratio 35.4 ratio High 10.0-22.0 [facility] MAIN Comment on above: Performed By: #### G FR BMP, MG ####[place] [address] Calcium [Mass/Vol] 9.5 mg/dL Normal 8.7-10.[address] [facility] MAIN Comment on above: Performed By: #### Tiera MUHAMMAD BMP, MG ####[place] [address] Chloride [Moles/Vol] 96 mmol/L Low 98-110 [facility] MAIN Comment on above: Performed By: #### Tiera MUHAMMAD BMP, MG ####[place] [id number] CO2 [Moles/Vol] 39 mmol/L High 22-32 [facility] MAIN Comment on above: Performed By: #### Tiera MUHAMMAD BMP, MG ####[place] [address] Creatinine [Mass/Vol] 0.65 mg/dL Normal 0.50-1.20 [facility] MAIN Comment on above: Result Comment: Test ing performed on ApnaPaisa analyzer using enzymatic creatinine methodology. Performed By: #### Tiera FR BMP, MG ####[place] [address] Electrolyte Balance 4.0 mEq/L Normal 4.0-15.[address] [facility] MAIN Comment on above: Performed By: #### Tiera FR BMP, MG ####[address] [address] Glucose [Mass/Vol] 95 mg/dL Normal 70-[address] [facility] MAIN Comment on above: Performed By: #### G FR, BMP, MG ####[address] [address] Potassium [Moles/Vol] 4.7 mmol/L Normal 3.5-5.0 [facility] MAIN Comment on above: Performed By: #### G FR, BMP, MG ####[address] [address] Sodium [Moles/Vol] 139 mmol/L Normal 136-[address] [facility] MAIN Comment on above: Performed By: #### G FR, BMP, MG ####[address] [address] Urea nitrogen [Mass/Vol] 23.0 mg/dL High 8.0-22.0 [facility] MAIN Comment on above: Performed By: #### G FR, BMP, MG ####[address] [address] CO2 [Moles/Vol] mmol/L Critically abnormal 22-32 [facility] MAIN Comment on above: Performed By: #### A DIFF, ANEU, LIPID, CBC, GFR, PBNP, MG, BMP ####[address] [address] Electrolyte Balance Unable to Calculate Normal 4.0-15. 0 [facility] MAIN Comment on above: Result Comment: Unab le to calculate this test result accurately. Results used to calculate this test are outside the reportable range. Performed By: #### A DIFF, ANEU, LIPID, CBC, GFR, PBNP, MG, BMP ####[address] [address] BUN/Creatinine Ratio 38.5 ratio High 10.0-22.0 [facility] MAIN Comment on above: Performed By: #### A DIFF, ANEU, LIPID, CBC, GFR, PBNP, MG, BMP ####[address] [address] Calcium [Mass/Vol] 9.2 mg/dL Normal 8.7-10.[address] [facility] MAIN Comment on above: Performed By: #### A DIFF, ANEU, LIPID, CBC, GFR, PBNP, MG, BMP ####[address] [address] Chloride [Moles/Vol] 97 mmol/L Low 98-110 [facility] MAIN Comment on above: Performed By: #### A DIFF, ANEU, LIPID, CBC, GFR, PBNP, MG, BMP ####[address] [address] Creatinine [Mass/Vol] 0.52 mg/dL Normal 0.50-1.20 [facility] MAIN Comment on above: Result Comment: Test ing performed on ApnaPaisa analyzer using enzymatic creatinine methodology. Performed By: #### A DIFF, ANEU, LIPID, CBC, GFR, PBNP, MG, BMP ####[address] [address] Glucose [Mass/Vol] 118 mg/dL High 70-[address] [facility] MAIN Comment on above: Performed By: #### A DIFF, ANEU, LIPID, CBC, GFR, PBNP, MG, BMP ####[address] [address] Potassium [Moles/Vol] 4.2 mmol/L Normal 3.5-5.0 [facility] MAIN Comment on above: Performed By: #### A DIFF, ANEU, LIPID, CBC, GFR, PBNP, MG, BMP ####[address] [address] Sodium [Moles/Vol] 142 mmol/L Normal 136-[address] [facility] MAIN Comment on above: Performed By: #### A DIFF, ANEU, LIPID, CBC, GFR, PBNP, MG, BMP ####[address] [address] Urea nitrogen [Mass/Vol] 20.0 mg/dL Normal 8.0-22.0 [facility] MAIN Comment on above: Performed By: #### A DIFF, ANEU, LIPID, CBC, GFR, PBNP, MG, BMP ####[address] [address] CBCon 05-17-2024 Erythrocyte distribution width (RBC) [Ratio] 15.0 % Normal 11.5-15.5 [facility] MAIN Comment on above: Performed By: #### A DIFF, ANEU, LIPID, CBC, GFR, PBNP, MG, BMP ####[place] [address] Hematocrit (Bld) [Volume fraction] 36.0 % Normal 34.0-46.0 [facility] MAIN Comment on above: Performed By: #### A DIFF, ANEU, LIPID, CBC, GFR, PBNP, MG, BMP ####[place] [address] Hgb 11.4 G/dL Low 12.0-16.0 [facility] MAIN Comment on above: Performed By: #### A DIFF, ANEU, LIPID, CBC, GFR, PBNP, MG, BMP ####[place] [address] MCH (RBC) [Entitic mass] 32.1 pg Normal 27.0-33.0 [facility] MAIN Comment on above: Performed By: #### A DIFF, ANEU, LIPID, CBC, GFR, PBNP, MG, BMP ####[place] [address] MCHC 31.7 G/dL Low 32.0-36.0 [facility] MAIN Comment on above: Performed By: #### A DIFF, ANEU, LIPID, CBC, GFR, PBNP, MG, BMP ####[place] [address] MCV (RBC) [Entitic vol] 101.1 fL High 80.0-99.0 [facility] MAIN Comment on above: Performed By: #### A DIFF, ANEU, LIPID, CBC, GFR, PBNP, MG, BMP ####[place] [address] Platelet 203 10 3/mcL Normal 150-450 [facility] MAIN Comment on above: Performed By: #### A DIFF, ANEU, LIPID, CBC, GFR, PBNP, MG, BMP ####[place] [address] Platelet mean volume (Bld) [Entitic vol] 9.4 fL Normal 6.6-10.5 [facility] MAIN Comment on above: Performed By: #### A DIFF, ANEU, LIPID, CBC, GFR, PBNP, MG, BMP ####[place] [id number] [place] [id number] RBC 3.56 10 6/mcL Low 4.10-5.30 [facility] MAIN Comment on above: Performed By: #### A DIFF, ANEU, LIPID, CBC, GFR, PBNP, MG, BMP ####[place] [address] WBC 16.1 10 3/mcL High 4.5-10.8 [facility] MAIN Comment on above: Performed By: #### A DIFF, ANEU, LIPID, CBC, GFR, PBNP, MG, BMP ####[place] [address] LABORATORYOrdered By: Kirti Laughlin on 05-17-2024 Cholesterol [...] 05-17-2024 Cholesterol [Mass/Vol] 171 mg/dL Normal 50-199 [facility] MAIN Comment on above: Result Comment: Chol esterol Reference Interval:Less than 200 [id number] Borderline high [id number] and above High risk Performed By: #### A DIFF, ANEU, LIPID, CBC, GFR, PBNP, MG, BMP ####[place] [address] Cholesterol in HDL [Mass/Vol] 49 mg/dL Normal 40-59 [facility] MAIN Comment on above: Performed By: #### A DIFF, ANEU, LIPID, CBC, GFR, PBNP, MG, BMP ####[address] [address] Cholesterol in LDL [Mass/Vol] 103 mg/dL Normal 0-129 [facility] MAIN Comment on above: Performed By: #### A DIFF, ANEU, LIPID, CBC, GFR, PBNP, MG, BMP ####[address] [address] Triglyceride [Mass/Vol] 93 mg/dL Normal 3-149 [facility] MAIN Comment on above: Performed By: #### A DIFF, ANEU, LIPID, CBC, GFR, PBNP, MG, BMP ####[place] [address] MGon 05-17-2024 Magnesium [Mass/Vol] 2.4 mg/dL Normal 1.6-2.4 [facility] MAIN Comment on above: Performed By: #### G FR, BMP, MG ####[place] [address] Magnesium [Mass/Vol] 2.4 mg/dL Normal 1.6-2.4 [facility] MAIN Comment on above: Performed By: #### A DIFF, ANEU, LIPID, CBC, GFR, PBNP, MG, BMP ####[address] [address] PBNPon 05-17-2024 Natriuretic peptide B (Bld) [Mass/Vol] 3704 pg/mL High 0-450 [facility] MAIN Comment on above: Performed By: #### A DIFF, ANEU, LIPID, CBC, GFR, PBNP, MG, BMP ####[address] [address] XR CHEST 2 VIEWSon XR CHEST 2 VIEWS Normal [facility] MAIN .Auto Diffon 05-16-2024 Basophil, Absolute 0.1 10 3/mcL Normal 0.0-0.3 [facility] MAIN Comment on above: Performed By: #### C BC, ANEU, HFP, GFR, BMP, MG, ADIFF ####[address] [address] Basophils/100 WBC (Bld) 0.5 % Normal 0.0-2.5 [facility] MAIN Comment on above: Performed By: #### C BC, ANEU, HFP, GFR, BMP, MG, ADIFF ####[address] [address] Eosinophil, Absolute 0.6 10 3/mcL Normal 0.0-0.7 [facility] MAIN Comment on above: Performed By: #### C BC, ANEU, HFP, GFR, BMP, MG, ADIFF ####[address] [address] Eosinophils/100 WBC (Bld) 5.2 % Normal 0.0-6.0 [facility] MAIN Comment on above: Performed By: #### C BC, ANEU, HFP, GFR, BMP, MG, ADIFF ####[address] [address] Lymphocyte, Absolute 1.1 10 3/mcL Normal 0.9-4.3 [facility] MAIN Comment on above: Performed By: #### C BC, ANEU, HFP, GFR, BMP, MG, ADIFF ####[address] [address] Lymphocytes/100 WBC (Bld) 9.0 % Low 20.0-40.0 [facility] MAIN Comment on above: Performed By: #### C BC, ANEU, HFP, GFR, BMP, MG, ADIFF ####[address] [address] Monocyte, Absolute 1.0 10 3/mcL Normal 0.1-1.4 [facility] Comment on above: Performed By: #### C BC, ANEU, HFP, GFR, BMP, MG, ADIFF ####[address] [address] Monocytes/100 WBC (Bld) 7.9 % Normal 2.0-13.0 [facility] Comment on above: Performed By: #### C BC, ANEU, HFP, GFR, BMP, MG, ADIFF ####[address] [address] Neutrophils/100 WBC (Bld) 77.4 % High 50.0-75.0 [facility] Comment on above: Performed By: #### C BC, ANEU, HFP, GFR, BMP, MG, ADIFF ####[place] [address] .GFRon 05-16-2024 GFR/1.73 sq M.predicted among non-blacks MDRD (S/P/Bld) [Vol rate/Area] mL/min/{1.73_m2} [facility] MAIN Comment on above: Result Comment: [...] Performed By: #### M G, BMP, GFR ####[place] [address] Estimated Glomerular Filtration Rate 119 ml/min/1.73sqm [facility] MAIN Comment on above: Result Comment: [...] BC, ANEU, HFP, GFR, BMP, MG, ADIFF ####[place] [id number] .NEUABSon 05-16-2024 Neutrophil, Absolute 9.3 10 3/mcL High 2.3-8.1 [facility] Comment on above: Performed By: #### C BC, ANEU, HFP, GFR, BMP, MG, ADIFF ####[address] [address] A1Con 05-16-2024 Glucose [Mass/Vol] 105 mg/dL Normal [facility] Comment on above: Order Comment: Add o n lab Result Comment: Roby mated Average Glucose calculated by equation ((28.7xA1C)-46.7)Estimated average glucose (eAG) is a calculated value from Hemoglobin A1C and is licensing representative of the average blood glucose level in the last 2-3 month period.Normal range: less than 114 mg/dL Performed By: #### A 1C ####[place] [address] HbA1c (Bld) [Mass fraction] 5.3 % Normal 4.0-6.0 [facility] MA[facility] Comment on above: Order Comment: Add o n lab Performed By: #### A 1C ####[place] [address] BMPon 05-16-2024 BUN/Creatinine Ratio 40.0 ratio High 10.0-22.0 [facility] Comment on above: Performed By: #### M G, BMP, GFR ####[address] [address] Calcium [Mass/Vol] 8.8 mg/dL Normal 8.7-10.[address] [facility] Comment on above: Performed By: #### M G, BMP, GFR ####[address] [address] Chloride [Moles/Vol] 100 mmol/L Normal 98-110 [facility] Comment on above: Performed By: #### M G, BMP, GFR ####[address] [address] CO2 [Moles/Vol] 37 mmol/L High 22-32 [facility] Comment on above: Performed By: #### M G, BMP, GFR ####[address] [address] Creatinine [Mass/Vol] 0.45 mg/dL Low 0.50-1.20 [facility] Comment on above: Result Comment: Test ing performed on ApnaPaisa analyzer using enzymatic creatinine methodology. Performed By: #### M G, BMP, GFR ####[address] [address] Electrolyte Balance 2.0 mEq/L Low 4.0-15.[address] [facility] Comment on above: Performed By: #### M G, BMP, GFR ####[address] [address] Glucose [Mass/Vol] 105 mg/dL Normal 70-[address] [facility] Comment on above: Performed By: #### M G, BMP, GFR ####[address] [address] Potassium [Moles/Vol] 5.2 mmol/L High 3.5-5.0 [facility] Comment on above: Result Comment: Spec imen slightly hemolyzed. Performed By: #### M G, BMP, GFR ####[address] [address] Sodium [Moles/Vol] 139 mmol/L Normal 136-[address] [facility] Comment on above: Performed By: #### M G, BMP, GFR ####[address] [address] Urea nitrogen [Mass/Vol] 18.0 mg/dL Normal 8.0-22.0 [facility] Comment on above: Performed By: #### M G, BMP, GFR ####[address] [address] CO2 [Moles/Vol] 39 mmol/L High 22-32 [facility] Comment on above: Performed By: #### C BC, ANEU, HFP, GFR, BMP, MG, ADIFF ####[address] [address] Electrolyte Balance 3.0 mEq/L Low 4.0-15.[address] [facility] Comment on above: Performed By: #### C BC, ANEU, HFP, GFR, BMP, MG, ADIFF ####[address] [address] BUN/Creatinine Ratio 33.3 ratio High 10.0-22.0 [facility] Comment on above: Performed By: #### C BC, ANEU, HFP, GFR, BMP, MG, ADIFF ####[address] [address] Calcium [Mass/Vol] 8.9 mg/dL Normal 8.7-10.[address] [facility] Comment on above: Performed By: #### C BC, ANEU, HFP, GFR, BMP, MG, ADIFF ####[address] [address] Chloride [Moles/Vol] 99 mmol/L Normal 98-110 [facility] Comment on above: Performed By: #### C BC, ANEU, HFP, GFR, BMP, MG, ADIFF ####[place] [id number] Creatinine [Mass/Vol] 0.54 mg/dL Normal 0.50-1.20 [facility] Comment on above: Result Comment: Test ing performed on ApnaPaisa analyzer using enzymatic creatinine methodology. Performed By: #### C BC, ANEU, HFP, GFR, BMP, MG, ADIFF ####[address] [address] Glucose [Mass/Vol] 93 mg/dL Normal 70-[address] [facility] Comment on above: Performed By: #### C BC, ANEU, HFP, GFR, BMP, MG, ADIFF ####[address] [address] Potassium [Moles/Vol] 4.4 mmol/L Normal 3.5-5.0 [facility] Comment on above: Performed By: #### C BC, ANEU, HFP, GFR, BMP, MG, ADIFF ####[address] [address] Sodium [Moles/Vol] 141 mmol/L Normal 136-[address] [facility] Comment on above: Performed By: #### C BC, ANEU, HFP, GFR, BMP, MG, ADIFF ####[place] [address] Urea nitrogen [Mass/Vol] 18.0 mg/dL Normal 8.0-22.0 [facility] Comment on above: Performed By: #### C BC, ANEU, HFP, GFR, BMP, MG, ADIFF ####[place] [address] CBCon 05-16-2024 Erythrocyte distribution width (RBC) [Ratio] 14.7 % Normal 11.5-15.5 [facility] Comment on above: Performed By: #### C BC, ANEU, HFP, GFR, BMP, MG, ADIFF ####[place] [address] Hematocrit (Bld) [Volume fraction] 34.0 % Normal 34.0-46.0 [facility] Comment on above: Performed By: #### C BC, ANEU, HFP, GFR, BMP, MG, ADIFF ####[place] [address] Hgb 11.0 G/dL Low 12.0-16.0 [facility] Comment on above: Performed By: #### C BC, ANEU, HFP, GFR, BMP, MG, ADIFF ####[place] [address] MCH (RBC) [Entitic mass] 32.2 pg Normal 27.0-33.0 [facility] Comment on above: Performed By: #### C BC, ANEU, HFP, GFR, BMP, MG, ADIFF ####[place] [address] MCHC 32.4 G/dL Normal 32.0-36.0 [facility] Comment on above: Performed By: #### C BC, ANEU, HFP, GFR, BMP, MG, ADIFF ####[place] [address] MCV (RBC) [Entitic vol] 99.5 fL High 80.0-99.0 [facility] Comment on above: Performed By: #### C BC, ANEU, HFP, GFR, BMP, MG, ADIFF ####[place] [address] Platelet 175 10 3/mcL Normal 150-450 [facility] Comment on above: Performed By: #### C BC, ANEU, HFP, GFR, BMP, MG, ADIFF ####[place] [address] Platelet mean volume (Bld) [Entitic vol] 9.1 fL Normal 6.6-10.5 [facility] Comment on above: Performed By: #### C BC, ANEU, HFP, GFR, BMP, MG, ADIFF ####[place] [address] RBC 3.42 10 6/mcL Low 4.10-5.30 [facility] Comment on above: Performed By: #### C BC, ANEU, HFP, GFR, BMP, MG, ADIFF ####[place] [address] WBC 12.0 10 3/mcL High 4.5-10.8 [facility] Comment on above: Performed By: #### C BC, ANEU, HFP, GFR, BMP, MG, ADIFF ####[place] [address] HFPon 05-16-2024 Bili Indirect 0.2 mg/dL Normal 0.1-10.0 [facility] Comment on above: Performed By: #### C BC, ANEU, HFP, GFR, BMP, MG, ADIFF ####[place] [address] Albumin Level 2.5 G/dL Low 3.2-4.8 [facility] Comment on above: Performed By: #### C BC, ANEU, HFP, GFR, BMP, MG, ADIFF ####[place] [address] Albumin/Globulin [Mass ratio] 0.6 {ratio} Low 0.9-1.6 [facility] Comment on above: Performed By: #### C BC, ANEU, HFP, GFR, BMP, MG, ADIFF ####[place] [address] ALP [Catalytic activity/Vol] 87 U/L Normal 38-126 [facility] Comment on above: Performed By: #### C BC, ANEU, HFP, GFR, BMP, MG, ADIFF ####[place] [address] ALT [Catalytic activity/Vol] 38 U/L Normal 10-49 [facility] Comment on above: Performed By: #### C BC, ANEU, HFP, GFR, BMP, MG, ADIFF ####[place] [address] AST [Catalytic activity/Vol] 21 U/L Normal 8-34 [facility] Comment on above: Performed By: #### C BC, ANEU, HFP, GFR, BMP, MG, ADIFF ####[place] [address] Bili Direct 0.1 mg/dL Normal 0.0-0.4 [facility] Comment on above: Result Comment: Use of this assay is not recommended for patients undergoing treatment with eltrombopag due to the potential for falsely elevated results. Performed By: #### C BC, ANEU, HFP, GFR, BMP, MG, ADIFF ####[place] [address] Bili Total 0.30 mg/dL Normal 0.20-1.20 [facility] Comment on above: Result Comment: Use of this assay is not recommended for patients undergoing treatment with eltrombopag due to the potential for falsely elevated results. Performed By: #### C BC, ANEU, HFP, GFR, BMP, MG, ADIFF ####[place] [address] Globulin 4.0 G/dL High 1.5-3.8 [facility] Comment on above: Performed By: #### C BC, ANEU, HFP, GFR, BMP, MG, ADIFF ####[place] [address] Total Protein 6.5 G/dL Normal 5.7-8.2 [facility] Comment on above: Performed By: #### C BC, ANEU, HFP, GFR, BMP, MG, ADIFF ####[place] [address] LABORATORYOrdered By: SYSTEM SYSTEM on 05-16-2024 Bili [...] calculated value from Hemoglobin A1C and is licensing representative of the average blood glucose level in the last 2-3 month period. Normal range: less than 114 mg/dL HbA1c (Bld) [Mass fraction] 5.3 % Normal 4.0 - 6.0 % Auto Chem SS MGon 05-16-2024 Magnesium [Mass/Vol] 2.3 mg/dL Normal 1.6-2.4 [facility] Comment on above: Performed By: #### M G, BMP, GFR ####[place] [address] Magnesium [Mass/Vol] 2.4 mg/dL Normal 1.6-2.4 [facility] Comment on above: Performed By: #### C BC, ANEU, HFP, GFR, BMP, MG, ADIFF ####[place] [address] .Auto Diffon 05-15-2024 Basophil, Absolute 0.1 10 3/mcL Normal 0.0-0.3 [facility] Comment on above: Performed By: #### A DAISY, CBC, ADIFF, BMP, GFR, MG ####[place] [address] Basophils/100 WBC (Bld) 0.7 % Normal 0.0-2.5 [facility] Comment on above: Performed By: #### A DAISY, CBC, ADIFF, BMP, GFR, MG ####[place] [address] Eosinophil, Absolute 0.8 10 3/mcL High 0.0-0.7 [facility] Comment on above: Performed By: #### A DAISY, CBC, ADIFF, BMP, GFR, MG ####[address] [address] Eosinophils/100 WBC (Bld) 6.2 % High 0.0-6.0 [facility] Comment on above: Performed By: #### A DAISY, CBC, ADIFF, BMP, GFR, MG ####[address] [address] Lymphocyte, Absolute 1.5 10 3/mcL Normal 0.9-4.3 [facility] Comment on above: Performed By: #### A DAISY, CBC, ADIFF, BMP, GFR, MG ####[address] [address] Lymphocytes/100 WBC (Bld) 11.7 % Low 20.0-40.0 [facility] Comment on above: Performed By: #### A DAISY, CBC, ADIFF, BMP, GFR, MG ####[address] [address] Monocyte, Absolute 1.5 10 3/mcL High 0.1-1.4 [facility] Comment on above: Performed By: #### A DAISY, CBC, ADIFF, BMP, GFR, MG ####[address] [address] Monocytes/100 WBC (Bld) 11.2 % Normal 2.0-13.0 [facility] Comment on above: Performed By: #### A DAISY, CBC, ADIFF, BMP, GFR, MG ####[address] [address] Neutrophils/100 WBC (Bld) 70.2 % Normal 50.0-75.0 [facility] Comment on above: Performed By: #### A DAISY, CBC, ADIFF, BMP, GFR, MG ####[address] [address] .GFRon 05-15-2024 Estimated Glomerular Filtration Rate 117 ml/min/1.73sqm Normal [facility] Comment on above: Result Comment: Stag [...] Performed By: #### M G, BMP, GFR ####[place] [address] Estimated Glomerular Filtration Rate 120 ml/min/1.73sqm Normal [facility] Comment on above: Result Comment: Stag [...] kidney function [id number] 5 Kidney failure <15Note: ([facility] 04/13/2024) the eGFR calculation was updated to the KD-EPI creatinine equation without a race factor to calculate theeGFR results. Performed By: #### A DAISY, CBC, ADIFF, BMP, GFR, MG ####[place] [address] .NEUABSon 05-15-2024 Neutrophil, Absolute 9.2 10 3/mcL High 2.3-8.1 [facility] Comment on above: Performed By: #### A DAISY, CBC, ADIFF, BMP, GFR, MG ####[place] [address] BMPon 05-15-2024 BUN/Creatinine Ratio 33.3 ratio High 10.0-22.0 [facility] Comment on above: Performed By: #### M G, BMP, GFR ####[address] [address] Calcium [Mass/Vol] 8.7 mg/dL Normal 8.7-10.[address] [facility] Comment on above: Performed By: #### Rah Mott BMP, GFR ####[address] [address] Chloride [Moles/Vol] 99 mmol/L Normal 98-110 [facility] Comment on above: Performed By: #### Rah Mott BMP, GFR ####[address] [address] CO2 [Moles/Vol] 39 mmol/L High 22-32 [facility] Comment on above: Performed By: #### DANIELLE Jenkins, GFR ####[address] [address] Creatinine [Mass/Vol] 0.57 mg/dL Normal 0.50-1.20 [facility] Comment on above: Result Comment: Test ing performed on ApnaPaisa analyzer using enzymatic creatinine methodology. Performed By: #### Rah Mott BMP, GFR ####[address] [address] Electrolyte Balance 2.0 mEq/L Low 4.0-15.[address] [facility] Comment on above: Performed By: #### Rah Mott BMP, GFR ####[address] [address] Glucose [Mass/Vol] 98 mg/dL Normal 70-[address] [facility] Comment on above: Performed By: #### Rah Mott BMP, GFR ####[address] [address] Potassium [Moles/Vol] 4.6 mmol/L Normal 3.5-5.0 [facility] Comment on above: Performed By: #### Rah Mott BMP, GFR ####[address] [address] Sodium [Moles/Vol] 140 mmol/L Normal 136-[address] [facility] Comment on above: Performed By: #### Rah Mott BMP, GFR ####[address] [address] Urea nitrogen [Mass/Vol] 19.0 mg/dL Normal 8.0-22.0 [facility] Comment on above: Performed By: #### M G, BMP, GFR ####[place] [address] BUN/Creatinine Ratio 37.3 ratio High 10.0-22.0 [facility] Comment on above: Performed By: #### A DAISY, CBC, ADIFF, BMP, GFR, MG ####[place] [address] Calcium [Mass/Vol] 8.7 mg/dL Normal 8.7-10.[address] [facility] Comment on above: Performed By: #### A DAISY, CBC, ADIFF, BMP, GFR, MG ####[place] [address] Chloride [Moles/Vol] 100 mmol/L Normal 98-110 [facility] Comment on above: Performed By: #### A DAISY, CBC, ADIFF, BMP, GFR, MG ####[place] [address] CO2 [Moles/Vol] 37 mmol/L High 22-32 [facility] Comment on above: Performed By: #### A DAISY, CBC, ADIFF, BMP, GFR, MG ####[place] [address] Creatinine [Mass/Vol] 0.51 mg/dL Normal 0.50-1.20 [facility] Comment on above: Result Comment: Test ing performed on ApnaPaisa analyzer using enzymatic creatinine methodology. Performed By: #### A DAISY, CBC, ADIFF, BMP, GFR, MG ####[place] [id number] Electrolyte Balance 3.0 mEq/L Low 4.0-15.[address] [facility] Comment on above: Performed By: #### A DAISY, CBC, ADIFF, BMP, GFR, MG ####[place] [id number] Glucose [Mass/Vol] 89 mg/dL Normal 70-[address] [facility] Comment on above: Performed By: #### A DAISY, CBC, ADIFF, BMP, GFR, MG ####[place] [address] Potassium [Moles/Vol] 4.8 mmol/L Normal 3.5-5.0 [facility] Comment on above: Performed By: #### A DAISY, CBC, ADIFF, BMP, GFR, MG ####[place] [address] Sodium [Moles/Vol] 140 mmol/L Normal 136-[address] [facility] Comment on above: Performed By: #### A DAISY, CBC, ADIFF, BMP, GFR, MG ####[place] [address] Urea nitrogen [Mass/Vol] 19.0 mg/dL Normal 8.0-22.0 [facility] Comment on above: Performed By: #### A DAISY, CBC, ADIFF, BMP, GFR, MG ####[place] [address] CBCon 05-15-2024 Erythrocyte distribution width (RBC) [Ratio] 14.8 % Normal 11.5-15.5 [facility] Comment on above: Performed By: #### A DAISY, CBC, ADIFF, BMP, GFR, MG ####[place] [address] Hematocrit (Bld) [Volume fraction] 32.4 % Low 34.0-46.0 [facility] Comment on above: Performed By: #### A DAISY, CBC, ADIFF, BMP, GFR, MG ####[place] [address] Hgb 10.3 G/dL Low 12.0-16.0 [facility] Comment on above: Performed By: #### A DAISY, CBC, ADIFF, BMP, GFR, MG ####[place] [address] MCH (RBC) [Entitic mass] 31.5 pg Normal 27.0-33.0 [facility] Comment on above: Performed By: #### A DAISY, CBC, ADIFF, BMP, GFR, MG ####[place] [address] MCHC 31.9 G/dL Low 32.0-36.0 [facility] Comment on above: Performed By: #### A DAISY, CBC, ADIFF, BMP, GFR, MG ####[place] [address] MCV (RBC) [Entitic vol] 98.8 fL Normal 80.0-99.0 [facility] Comment on above: Performed By: #### A DAISY, CBC, ADIFF, BMP, GFR, MG ####[place] [address] Platelet 202 10 3/mcL Normal 150-450 [facility] Comment on above: Performed By: #### A DAISY, CBC, ADIFF, BMP, GFR, MG ####[place] [address] Platelet mean volume (Bld) [Entitic vol] 9.4 fL Normal 6.6-10.5 [facility] Comment on above: Performed By: #### A DAISY, CBC, ADIFF, BMP, GFR, MG ####[place] [address] RBC 3.28 10 6/mcL Low 4.10-5.30 [facility] Comment on above: Performed By: #### A DAISY, CBC, ADIFF, BMP, GFR, MG ####[place] [address] WBC 13.1 10 3/mcL High 4.5-10.8 [facility] Comment on above: Performed By: #### A DAISY, CBC, ADIFF, BMP, GFR, MG ####[place] [address] LABORATORYOrdered By: Yan Culp on 05-15-2024 Blood Glucose Testing Reason Routine (05/15/24 3:15 PM) [facility] Glucose [Mass/Vol] 126 mg/dL High 70 - 110 mg/dL [facility] Blood Glucose Testing Reason Routine (05/15/24 11:15 AM) [facility] Glucose [Mass/Vol] 132 mg/dL High 70 - 110 mg/dL [facility] Blood Glucose Testing Reason Routine (05/15/24 7:30 AM) [facility] Glucose [Mass/Vol] 116 mg/dL High 70 - 110 mg/dL [facility] MGon 05-15-2024 Magnesium [Mass/Vol] 2.2 mg/dL Normal 1.6-2.4 [facility] Comment on above: Performed By: #### M G, BMP, GFR ####[place] [address] Magnesium [Mass/Vol] 2.3 mg/dL Normal 1.6-2.4 [facility] Comment on above: Performed By: #### A DAISY, CBC, ADIFF, BMP, GFR, MG ####[address] [address] VBGon 05-15-2024 BE Venous 9.7 mmol/L High -3.0-3.0 [facility] Comment on above: Performed By: #### V BG ####[place] [id number] CO2 [Moles/Vol] 38.1 mmol/L High 22.0-32.0 [facility] Comment on above: Performed By: #### V BG ####[address] [address] HCO3 (Bld) [Moles/Vol] 36.2 mmol/L High 21.0-30.0 [facility] Comment on above: Performed By: #### V BG ####[place] [address] Oxygen saturation in Blood 97.8 % High 70.0-75.0 [facility] Comment on above: Performed By: #### V BG ####[place] [address] pCO2 Satish 60.0 mmHg High 41.0-51.0 [facility] Comment on above: Performed By: #### V BG ####[place] [address] pH Venous 7.399 Normal 7.380-7.460 [facility] Comment on above: Performed By: #### V BG ####[place] [address] pO2 Satish 101.4 mmHg High 35.0-40.0 [facility] Comment on above: Performed By: #### V BG ####[place] [address] XR CHEST 1 VIEWon 05-15-2024 XR CHEST 1 VIEW Normal [facility] .Auto Diffon 05-14-2024 Basophil, Absolute 0.0 10 3/mcL Normal 0.0-0.3 [facility] Comment on above: Performed By: #### A DAISY, GFR, ADIFF, BMP, CBC, MG ####[place] [address] Basophils/100 WBC (Bld) 0.3 % Normal 0.0-2.5 [facility] Comment on above: Performed By: #### A DAISY, GFR, ADIFF, BMP, CBC, MG ####[place] [address] Eosinophil, Absolute 0.6 10 3/mcL Normal 0.0-0.7 [facility] Comment on above: Performed By: #### A DAISY, GFR, ADIFF, BMP, CBC, MG ####[place] [address] Eosinophils/100 WBC (Bld) 4.9 % Normal 0.0-6.0 [facility] Comment on above: Performed By: #### A DAISY, GFR, ADIFF, BMP, CBC, MG ####[place] [address] Lymphocyte, Absolute 1.1 10 3/mcL Normal 0.9-4.3 [facility] Comment on above: Performed By: #### A DAISY, GFR, ADIFF, BMP, CBC, MG ####[address] [address] Lymphocytes/100 WBC (Bld) 8.6 % Low 20.0-40.0 [facility] Comment on above: Performed By: #### A DAISY, GFR, ADIFF, BMP, CBC, MG ####[address] [address] Monocyte, Absolute 1.5 10 3/mcL High 0.1-1.4 [facility] Comment on above: Performed By: #### A DAISY, GFR, ADIFF, BMP, CBC, MG ####[address] [address] Monocytes/100 WBC (Bld) 12.0 % Normal 2.0-13.0 [facility] Comment on above: Performed By: #### A DAISY, GFR, ADIFF, BMP, CBC, MG ####[address] [address] Neutrophils/100 WBC (Bld) 74.2 % Normal 50.0-75.0 [facility] Comment on above: Performed By: #### A DAISY, GFR, ADIFF, BMP, CBC, MG ####[address] [address] .GFRon 05-14-2024 Estimated Glomerular Filtration Rate 120 ml/min/1.73sqm Normal [facility] Comment on above: Result Comment: Stag [...] Performed By: #### M G, BMP, GFR ####[address] [address] Estimated Glomerular Filtration Rate 118 ml/min/1.73sqm Normal [facility] Comment on above: Result Comment: Stag [...] A DAISY, GFR, ADIFF, BMP, CBC, MG ####[place] [address] .NEUABSon 05-14-2024 Neutrophil, Absolute 9.4 10 3/mcL High 2.3-8.1 [facility] Comment on above: Performed By: #### A DAISY, GFR, ADIFF, BMP, CBC, MG ####[place] [address] BGon 05-14-2024 Base excess Calc (Bld) [Moles/Vol] 9.0 mmol/L Normal [facility] Comment on above: Performed By: #### B G ####[place] [address] CO2 [Moles/Vol] 37.5 mmol/L High 22.0-30.0 [facility] Comment on above: Performed By: #### B G ####[place] [address] HCO3 (Bld) [Moles/Vol] 35.6 mmol/L High 21.0-29.0 [facility] Comment on above: Performed By: #### B G ####[place] [address] Oxygen (Bld) [Partial pressure] 77.3 mm[Hg] Normal 74.0-108.0 [facility] Comment on above: Performed By: #### B G ####[place] [address] Oxygen saturation in Blood 94.7 % Normal 92.0-96.0 [facility] Comment on above: Performed By: #### B G ####[address] [address] pCO2 59.4 mmHg High 32.0-46.0 [facility] Comment on above: Performed By: #### B G ####[place] [address] pH (Bld) 7.396 [pH] Normal 7.380-7.460 [facility] Comment on above: Performed By: #### B G ####[place] [address] BMPon 05-14-2024 BUN/Creatinine Ratio 35.3 ratio High 10.0-22.0 [facility] Comment on above: Performed By: #### Rah Mott, BMP, GFR ####[place] [address] Calcium [Mass/Vol] 9.1 mg/dL Normal 8.7-10.[address] [facility] Comment on above: Performed By: #### Rah Mott, BMP, GFR ####[place] [address] Chloride [Moles/Vol] 103 mmol/L Normal 98-110 [facility] Comment on above: Performed By: #### Rah Mott, BMP, GFR ####[place] [address] CO2 [Moles/Vol] 37 mmol/L High 22-32 [facility] Comment on above: Performed By: #### Rah Mott, BMP, GFR ####[place] [address] Creatinine [Mass/Vol] 0.51 mg/dL Normal 0.50-1.20 [facility] Comment on above: Result Comment: Test ing performed on [employer] analyzer using enzymatic creatinine methodology. Performed By: #### Rah Mott, BMP, GFR ####[place] [address] Electrolyte Balance 3.0 mEq/L Low 4.0-15.[address] [facility] Comment on above: Performed By: #### M G, BMP, GFR ####[address] [address] Glucose [Mass/Vol] 113 mg/dL High 70-[address] [facility] Comment on above: Performed By: #### M G, BMP, GFR ####[place] [id number] Potassium [Moles/Vol] 4.3 mmol/L Normal 3.5-5.0 [facility] Comment on above: Performed By: #### M G, BMP, GFR ####[place] [address] Sodium [Moles/Vol] 143 mmol/L Normal 136-[address] [facility] Comment on above: Performed By: #### M G, BMP, GFR ####[address] [address] Urea nitrogen [Mass/Vol] 18.0 mg/dL Normal 8.0-22.0 [facility] Comment on above: Performed By: #### M G, BMP, GFR ####[place] [address] BUN/Creatinine Ratio 48.2 ratio High 10.0-22.0 [facility] Comment on above: Performed By: #### A DAISY, GFR, ADIFF, BMP, CBC, MG ####[address] [address] Calcium [Mass/Vol] 9.1 mg/dL Normal 8.7-10.[address] [facility] Comment on above: Performed By: #### A DAISY, GFR, ADIFF, BMP, CBC, MG ####[address] [address] Chloride [Moles/Vol] 103 mmol/L Normal 98-110 [facility] Comment on above: Performed By: #### A DAISY, GFR, ADIFF, BMP, CBC, MG ####[place] [id number] CO2 [Moles/Vol] 39 mmol/L High 22-32 [facility] MAIN Comment on above: Performed By: #### A DAISY, GFR, ADIFF, BMP, CBC, MG ####[address] [address] Creatinine [Mass/Vol] 0.56 mg/dL Normal 0.50-1.20 [facility] MAIN Comment on above: Result Comment: Test ing performed on ApnaPaisa analyzer using enzymatic creatinine methodology. Performed By: #### A DAISY, GFR, ADIFF, BMP, CBC, MG ####[place] [address] Electrolyte Balance 3.0 mEq/L Low 4.0-15.[address] [facility] MAIN Comment on above: Performed By: #### A DAISY, GFR, ADIFF, BMP, CBC, MG ####[place] [address] Glucose [Mass/Vol] 120 mg/dL High 70-[address] [facility] MAIN Comment on above: Performed By: #### A DAISY, GFR, ADIFF, BMP, CBC, MG ####[place] [address] Potassium [Moles/Vol] 4.4 mmol/L Normal 3.5-5.0 [facility] MAIN Comment on above: Result Comment: Spec imen slightly hemolyzed. Performed By: #### A DAISY, GFR, ADIFF, BMP, CBC, MG ####[address] [address] Sodium [Moles/Vol] 145 mmol/L Normal 136-[address] [facility] MAIN Comment on above: Performed By: #### A DAISY, GFR, ADIFF, BMP, CBC, MG ####[place] [id number] Urea nitrogen [Mass/Vol] 27.0 mg/dL High 8.0-22.0 [facility] MAIN Comment on above: Performed By: #### A DAISY, GFR, ADIFF, BMP, CBC, MG ####[address] [address] CBCon 05-14-2024 Erythrocyte distribution width (RBC) [Ratio] 14.7 % Normal 11.5-15.5 [facility] MAIN Comment on above: Performed By: #### A DAISY, GFR, ADIFF, BMP, CBC, MG ####[place] [address] Hematocrit (Bld) [Volume fraction] 31.8 % Low 34.0-46.0 [facility] MAIN Comment on above: Performed By: #### A DAISY, GFR, ADIFF, BMP, CBC, MG ####[place] [address] Hgb 10.7 G/dL Low 12.0-16.0 [facility] MAIN Comment on above: Performed By: #### A DAISY, GFR, ADIFF, BMP, CBC, MG ####[place] [address] MCH (RBC) [Entitic mass] 33.1 pg High 27.0-33.0 [facility] MAIN Comment on above: Performed By: #### A DAISY, GFR, ADIFF, BMP, CBC, MG ####[place] [address] MCHC 33.5 G/dL Normal 32.0-36.0 [facility] MAIN Comment on above: Performed By: #### A DAISY, GFR, ADIFF, BMP, CBC, MG ####[place] [address] MCV (RBC) [Entitic vol] 99.0 fL Normal 80.0-99.0 [facility] MAIN Comment on above: Performed By: #### A DAISY, GFR, ADIFF, BMP, CBC, MG ####[place] [address] Platelet 173 10 3/mcL Normal 150-450 [facility] MAIN Comment on above: Performed By: #### A DAISY, GFR, ADIFF, BMP, CBC, MG ####[place] [address] Platelet mean volume (Bld) [Entitic vol] 9.8 fL Normal 6.6-10.5 [facility] MAIN Comment on above: Performed By: #### A DAISY, GFR, ADIFF, BMP, CBC, MG ####[place] [address] [place] [address] RBC 3.22 10 6/mcL Low 4.10-5.30 [facility] MAIN Comment on above: Performed By: #### A DAISY, GFR, ADIFF, BMP, CBC, MG ####[place] [address] [place] [address] WBC 12.7 10 3/mcL High 4.5-10.8 [facility] MAIN Comment on above: Performed By: #### A DAISY, GFR, ADIFF, BMP, CBC, MG ####[address] [address] LABORATORYOrdered By: Colin hernandez on 05-14-2024 Blood Glucose Interventions Administered food/juice (05/14/24 1:40 PM) [facility] MGon 05-14-2024 Magnesium [Mass/Vol] 2.2 mg/dL Normal 1.6-2.4 [facility] MAIN Comment on above: Performed By: #### M G, BMP, GFR ####[address] [address] Magnesium [Mass/Vol] 2.6 mg/dL High 1.6-2.4 [facility] MAIN Comment on above: Performed By: #### A DAISY, GFR, ADIFF, BMP, CBC, MG ####[address] [address] XR ANKLE MINIMUM 3 VIEWS RIG HTon 05-14-2024 XR ANKLE MINIMUM 3 VIEWS RIGHT Normal [facility] XR CHEST 1 VIEWon 05-14-2024 XR CHEST 1 VIEW Normal [facility] XR CHEST 1 VIEW Normal [facility] .Auto Diffon 05-13-2024 Basophil, Absolute 0.0 10 3/mcL Normal 0.0-0.3 [facility] MAIN Comment on above: Performed By: #### M G, PHOS, CAION, CMP, MYCO, GFR, CBC, TROPHS, ADIFF, ANEU ####[address] [address] Basophils/100 WBC (Bld) 0.3 % Normal 0.0-2.5 [facility] MAIN Comment on above: Performed By: #### M G, PHOS, CAION, CMP, MYCO, GFR, CBC, TROPHS, ADIFF, ANEU ####[address] [address] Eosinophil, Absolute 0.5 10 3/mcL Normal 0.0-0.7 [facility] MAIN Comment on above: Performed By: #### M G, PHOS, CAION, CMP, MYCO, GFR, CBC, TROPHS, ADIFF, ANEU ####[address] [address] Eosinophils/100 WBC (Bld) 3.3 % Normal 0.0-6.0 [facility] MAIN Comment on above: Performed By: #### M G, PHOS, CAION, CMP, MYCO, GFR, CBC, TROPHS, ADIFF, ANEU ####[address] [address] Lymphocyte, Absolute 0.8 10 3/mcL Low 0.9-4.3 [facility] MAIN Comment on above: Performed By: #### M G, PHOS, CAION, CMP, MYCO, GFR, CBC, TROPHS, ADIFF, ANEU ####[address] [address] Lymphocytes/100 WBC (Bld) 6.1 % Low 20.0-40.0 [facility] MAIN Comment on above: Performed By: #### M G, PHOS, CAION, CMP, MYCO, GFR, CBC, TROPHS, ADIFF, ANEU ####[address] [address] Monocyte, Absolute 1.5 10 3/mcL High 0.1-1.4 [facility] MAIN Comment on above: Performed By: #### M G, PHOS, CAION, CMP, MYCO, GFR, CBC, TROPHS, ADIFF, ANEU ####[address] [address] Monocytes/100 WBC (Bld) 10.7 % Normal 2.0-13.0 [facility] MAIN Comment on above: Performed By: #### M G, PHOS, CAION, CMP, MYCO, GFR, CBC, TROPHS, ADIFF, ANEU ####[address] [address] Neutrophils/100 WBC (Bld) 79.6 % High 50.0-75.0 [facility] MAIN Comment on above: Performed By: #### M G, PHOS, CAION, CMP, MYCO, GFR, CBC, TROPHS, ADIFF, ANEU ####[address] [address] .GFRon 05-13-2024 Estimated Glomerular Filtration Rate 116 ml/min/1.73sqm [facility] MAIN Comment on above: Result Comment: [...] Performed By: #### M G, GFR, BMP ####[address] [address] Estimated Glomerular Filtration Rate 109 ml/min/1.73sqm [facility] MAIN Comment on above: Result Comment: [...] CMP, MYCO, GFR, CBC, TROPHS, ADIFF, ANEU ####[place] [address] .NEUABSon 05-13-2024 Neutrophil, Absolute 11.1 10 3/mcL High 2.3-8.1 [facility] MAIN Comment on above: Performed By: #### M G, PHOS, CAION, CMP, MYCO, GFR, CBC, TROPHS, ADIFF, ANEU ####[place] [address] BGon 05-13-2024 Base excess Calc (Bld) [Moles/Vol] 17.9 mmol/L Normal [facility] MAIN Comment on above: Performed By: #### B G ####[place] [address] CO2 [Moles/Vol] 44.7 mmol/L Critically abnormal 22.0-30.0 [facility] MAIN Comment on above: Performed By: #### B G ####[place] [address] HCO3 (Bld) [Moles/Vol] 43.1 mmol/L High 21.0-29.0 [facility] MAIN Comment on above: Performed By: #### B G ####[place] [address] Oxygen (Bld) [Partial pressure] 278.9 mm[Hg] High 74.0-108.0 [facility] MAIN Comment on above: Performed By: #### B G ####[place] [address] Oxygen saturation in Blood 99.8 % High 92.0-96.0 [facility] MAIN Comment on above: Performed By: #### B G ####[place] [address] pCO2 53.1 mmHg High 32.0-46.0 [facility] MAIN Comment on above: Performed By: #### B G ####[place] [address] pH (Bld) 7.527 [pH] High 7.380-7.460 [facility] MAIN Comment on above: Performed By: #### B Tiera ####[place] [address] BMPon 05-13-2024 CO2 [Moles/Vol] mmol/L Critically abnormal 22-32 [facility] MAIN Comment on above: Performed By: #### Rah Mott, GFR, BMP ####[place] [address] Electrolyte Balance Unable to Calculate Normal 4.0-15. 0 [facility] MAIN Comment on above: Result Comment: Unab le to calculate this test result accurately. Results used to calculate this test are outside the reportable range. Performed By: #### Rah Mott, GFR, BMP ####[place] [address] BUN/Creatinine Ratio 43.3 ratio High 10.0-22.0 [facility] MAIN Comment on above: Performed By: #### Rah Mott, GFR, BMP ####[place] [address] Calcium [Mass/Vol] 9.1 mg/dL Normal 8.7-10.[address] [facility] MAIN Comment on above: Performed By: #### Rah Mott, GFR, BMP ####[place] [address] Chloride [Moles/Vol] 100 mmol/L Normal 98-110 [facility] MAIN Comment on above: Performed By: #### Rah Mott, GFR, BMP ####[place] [address] Creatinine [Mass/Vol] 0.60 mg/dL Normal 0.50-1.20 [facility] MAIN Comment on above: Result Comment: Test ing performed on ApnaPaisa analyzer using enzymatic creatinine methodology. Performed By: #### Rah Mott, GFR, BMP ####[place] [address] Glucose [Mass/Vol] 84 mg/dL Normal 70-[address] [facility] MAIN Comment on above: Performed By: #### Rah Mott, GFR, BMP ####[place] [id number] Potassium [Moles/Vol] 4.6 mmol/L Normal 3.5-5.0 [facility] MAIN Comment on above: Performed By: #### Rah Mott, GFR, BMP ####[place] [address] Sodium [Moles/Vol] 144 mmol/L Normal 136-[address] [facility] MAIN Comment on above: Performed By: #### Rah Mott, GFR, BMP ####[place] [address] Urea nitrogen [Mass/Vol] 26.0 mg/dL High 8.0-22.0 [facility] MAIN Comment on above: Performed By: #### Rah Mott GFR, BMP ####[place] [address] CAIONon 05-13-2024 Calcium Ionized 1.02 mmol/L Low 1.12-1.32 [facility] MAIN Comment on above: Order Comment: Speci men volume must be 80% full05/13/2024 04:08:49 EST Performed By: #### M Tiera, PHOS, CAION, CMP, MYCO, GFR, CBC, TROPHS, ADIFF, ANEU ####[place] [address] CBCon 05-13-2024 Erythrocyte distribution width (RBC) [Ratio] 14.4 % Normal 11.5-15.5 [facility] MAIN Comment on above: Performed By: #### Rah G, PHOS, CAION, CMP, MYCO, GFR, CBC, TROPHS, ADIFF, ANEU ####[place] [address] Hematocrit (Bld) [Volume fraction] 30.3 % Low 34.0-46.0 [facility] MAIN Comment on above: Performed By: #### M G, PHOS, CAION, CMP, MYCO, GFR, CBC, TROPHS, ADIFF, ANEU ####[place] [address] Hgb 10.0 G/dL Low 12.0-16.0 [facility] MAIN Comment on above: Performed By: #### M G, PHOS, CAION, CMP, MYCO, GFR, CBC, TROPHS, ADIFF, ANEU ####[place] [address] MCH (RBC) [Entitic mass] 32.6 pg Normal 27.0-33.0 [facility] MAIN Comment on above: Performed By: #### M G, PHOS, CAION, CMP, MYCO, GFR, CBC, TROPHS, ADIFF, ANEU ####[place] [address] MCHC 32.9 G/dL Normal 32.0-36.0 [facility] MAIN Comment on above: Performed By: #### M G, PHOS, CAION, CMP, MYCO, GFR, CBC, TROPHS, ADIFF, ANEU ####[place] [address] MCV (RBC) [Entitic vol] 99.2 fL High 80.0-99.0 [facility] MAIN Comment on above: Performed By: #### M G, PHOS, CAION, CMP, MYCO, GFR, CBC, TROPHS, ADIFF, ANEU ####[place] [address] Platelet 162 10 3/mcL Normal 150-450 [facility] MAIN Comment on above: Performed By: #### M G, PHOS, CAION, CMP, MYCO, GFR, CBC, TROPHS, ADIFF, ANEU ####[place] [address] Platelet mean volume (Bld) [Entitic vol] 9.6 fL Normal 6.6-10.5 [facility] MAIN Comment on above: Performed By: #### M G, PHOS, CAION, CMP, MYCO, GFR, CBC, TROPHS, ADIFF, ANEU ####[place] [address] RBC 3.06 10 6/mcL Low 4.10-5.30 [facility] MAIN Comment on above: Performed By: #### M G, PHOS, CAION, CMP, MYCO, GFR, CBC, TROPHS, ADIFF, ANEU ####[address] [address] WBC 14.0 10 3/mcL High 4.5-10.8 [facility] MAIN Comment on above: Performed By: #### M G, PHOS, CAION, CMP, MYCO, GFR, CBC, TROPHS, ADIFF, ANEU ####[place] [address] CMPon 05-13-2024 CO2 [Moles/Vol] mmol/L Critically abnormal 22-32 [facility] MAIN Comment on above: Performed By: #### M G, PHOS, CAION, CMP, MYCO, GFR, CBC, TROPHS, ADIFF, ANEU ####[place] [address] Electrolyte Balance Unable to Calculate Normal 4.0-15. 0 [facility] MAIN Comment on above: Result Comment: Unab le to calculate this test result accurately. Results used to calculate this test are outside the reportable range. Performed By: #### M G, PHOS, CAION, CMP, MYCO, GFR, CBC, TROPHS, ADIFF, ANEU ####[place] [address] Albumin Level 2.7 G/dL Low 3.2-4.8 [facility] MAIN Comment on above: Performed By: #### M G, PHOS, CAION, CMP, MYCO, GFR, CBC, TROPHS, ADIFF, ANEU ####[place] [address] Albumin/Globulin [Mass ratio] 0.8 {ratio} Low 0.9-1.6 [facility] MAIN Comment on above: Performed By: #### M G, PHOS, CAION, CMP, MYCO, GFR, CBC, TROPHS, ADIFF, ANEU ####[place] [address] ALP [Catalytic activity/Vol] 94 U/L Normal 38-126 [facility] MAIN Comment on above: Performed By: #### M G, PHOS, CAION, CMP, MYCO, GFR, CBC, TROPHS, ADIFF, ANEU ####[address] [place] [address] ALT [Catalytic activity/Vol] 61 U/L High 10-49 [facility] MAIN Comment on above: Performed By: #### M G, PHOS, CAION, CMP, MYCO, GFR, CBC, TROPHS, ADIFF, ANEU ####[address] [address] AST [Catalytic activity/Vol] 59 U/L High 8-34 [facility] MAIN Comment on above: Performed By: #### M G, PHOS, CAION, CMP, MYCO, GFR, CBC, TROPHS, ADIFF, ANEU ####[address] [address] Bili Total 0.60 mg/dL Normal 0.20-1.20 [facility] MAIN Comment on above: Result Comment: Use of this assay is not recommended for patients undergoing treatment with eltrombopag due to the potential for falsely elevated results. Performed By: #### M G, PHOS, CAION, CMP, MYCO, GFR, CBC, TROPHS, ADIFF, ANEU ####[address] [address] BUN/Creatinine Ratio 54.9 ratio High 10.0-22.0 [facility] MAIN Comment on above: Performed By: #### M G, PHOS, CAION, CMP, MYCO, GFR, CBC, TROPHS, ADIFF, ANEU ####[address] [address] Calcium [Mass/Vol] 8.9 mg/dL Normal 8.7-10.[address] [facility] MAIN Comment on above: Performed By: #### M G, PHOS, CAION, CMP, MYCO, GFR, CBC, TROPHS, ADIFF, ANEU ####[address] [address] Chloride [Moles/Vol] 95 mmol/L Low 98-110 [facility] MAIN Comment on above: Performed By: #### M G, PHOS, CAION, CMP, MYCO, GFR, CBC, TROPHS, ADIFF, ANEU ####[address] [address] Creatinine [Mass/Vol] 0.71 mg/dL Normal 0.50-1.20 [facility] MAIN Comment on above: Result Comment: Test ing performed on ApnaPaisa analyzer using enzymatic creatinine methodology. Performed By: #### M G, PHOS, CAION, CMP, MYCO, GFR, CBC, TROPHS, ADIFF, ANEU ####[address] [address] Globulin 3.4 G/dL Normal 1.5-3.8 [facility] MAIN Comment on above: Performed By: #### M G, PHOS, CAION, CMP, MYCO, GFR, CBC, TROPHS, ADIFF, ANEU ####[address] [address] Glucose [Mass/Vol] 125 mg/dL High 70-[address] [facility] MAIN Comment on above: Performed By: #### M G, PHOS, CAION, CMP, MYCO, GFR, CBC, TROPHS, ADIFF, ANEU ####[address] [address] Potassium [Moles/Vol] 3.3 mmol/L Low 3.5-5.0 [facility] MAIN Comment on above: Performed By: #### M G, PHOS, CAION, CMP, MYCO, GFR, CBC, TROPHS, ADIFF, ANEU ####[address] [address] Sodium [Moles/Vol] 143 mmol/L Normal 136-[address] [facility] MAIN Comment on above: Performed By: #### M G, PHOS, CAION, CMP, MYCO, GFR, CBC, TROPHS, ADIFF, ANEU ####[address] [address] Total Protein 6.1 G/dL Normal 5.7-8.2 [facility] MAIN Comment on above: Performed By: #### M G, PHOS, CAION, CMP, MYCO, GFR, CBC, TROPHS, ADIFF, ANEU ####[address] [address] Urea nitrogen [Mass/Vol] 39.0 mg/dL High 8.0-22.0 [facility] MAIN Comment on above: Performed By: #### M G, PHOS, CAION, CMP, MYCO, GFR, CBC, TROPHS, ADIFF, ANEU ####[facility] [place] [address] LABORATORYOrdered By: SYSTEM SYSTEM on 05-13-2024 Lactate [...] ng/L Male: 0-54 ng/L Testing performed on Xetawave IM analyzer using direct chemiluminescent technology. LABORATORYOrdered By: Colin hernandez on 05-13-2024 Blood Glucose Interventions Administered agent to increase blood sugar (05/13/24 8:00 AM) [facility] LABORATORYOrdered By: Nasra Manzano on 05-13-2024 Calcium [...] suggested if clinically indicated. LABORATORYOrdered By: Annie Cavazos on 05-13-2024 Adenovirus DNA DOV+non-probe Ql (Nph) Not Detected *NA* (05/13/24 2:44 AM) Invalid Interpretation Code Not Detected AH Auto Viro/Sero SS B. parapertussis [id number] DNA DOV+non-probe Ql (Nph) Not Detected *NA* [...] his assay has been validated in the [facility] for use with nasopharyngeal specimens in [facility]. If a non-validated specimen or test collection [...] Lactic Acid Lvl 1.0 mmol/L Normal 0.5-2.2 [facility] MAIN Comment on above: Performed By: #### L AC ####[place] [address] Lactic Acid Lvl 1.0 mmol/L Normal 0.5-2.2 [facility] MAIN Comment on above: Performed By: #### L AC ####[place] [address] Lactic Acid Lvl 2.5 mmol/L High 0.5-2.2 [facility] MAIN Comment on above: Performed By: #### L AC ####[place] [address] LUAon 05-13-2024 [facility] MAIN MGon 05-13-2024 Magnesium [Mass/Vol] 2.4 mg/dL Normal 1.6-2.4 [facility] MAIN Comment on above: Performed By: #### M G, GFR, BMP ####[place] [address] Magnesium [Mass/Vol] 2.4 mg/dL Normal 1.6-2.4 [facility] MAIN Comment on above: Performed By: #### M G, PHOS, CAION, CMP, MYCO, GFR, CBC, TROPHS, ADIFF, ANEU ####[place] [address] MRSAPCRon 05-13-2024 MRSA (PCR) Not detected Normal Not Detected [facility] MAIN Comment on above: Performed By: #### M RSAPCR ####[place] [address] MRSA PCR Int Normal [facility] MAIN Comment on above: Result Comment: MRSA [...] reproducible.See Below Performed By: #### M RSAPCR ####[place] [address] MYCOon 05-13-2024 Mycoplasma IgG Positive Normal [facility] MAIN Comment on above: Result Comment: INTE RPRETATION OF MYCOPLASMA IgG BY EIA: Negative: No detectable M. pneumoniae IgG antibody. Positive: Mycoplasma pneumoniae IgG antibody Detected. Equivocal: Equivocal for IgG antibodies to Mycoplasma pneumoniae. Suggest repeat testing in 10-14 days. Performed By: #### M G, PHOS, CAION, CMP, MYCO, GFR, CBC, TROPHS, ADIFF, ANEU ####[place] [address] Mycoplasma IgM Positive Abnormal [facility] MAIN Comment on above: Result Comment: INTE [...] CMP, MYCO, GFR, CBC, TROPHS, ADIFF, ANEU ####[place] [address] No Panel Informationon 05-13 Legionella Urine Ag Presumptive negative for L. pneumophila serogroup 1 antigen in urine, suggesting no recent or current infection. Legionnaire's disease cannot be ruled out since other serogroups and species may also cause disease. [facility] Streptococcus Pneumoniae Urine Antig Presumptive negative for pneumococcal pneumonia, suggesting no current or recent pneumococcal infection. Infection due to Strep pneumoniae cannot be ruled out since the antigen present in the sample may be below the detection limit of the test. [facility] Comment on above: This test has not be en evaluated on patients taking antibiotics for greater than 24 hours or on patients who have recently completed an antibiotic regimen. The accuracy of this test has not been proven in young children. No Panel InformationOrdered By: Pily Oquendo on 05-13-2024 Blood Glucose Interventions Administered agent to increase blood sugar, Notify physician (05/13/24 1:05 AM) [facility] PHOSon 05-13-2024 Phosphate [Mass/Vol] 3.0 mg/dL Normal 2.4-5.1 [facility] Comment on above: Result Comment: No te - New Reference Range in effect 19 Performed By: #### M G, PHOS, CAION, CMP, MYCO, GFR, CBC, TROPHS, ADIFF, ANEU ####[place] [address] RESCVIDon 05-13-2024 Adenovirus Not detected Normal Not Detected [facility] MAIN Comment on above: Performed By: #### R ESCVID ####[place] [address] Bordetella Parapertussis Not detected Normal Not Detected [facility] MAIN Comment on above: Performed By: #### R ESCVID ####[place] [address] Bordetella Pertussis Not detected Normal Not Detected [facility] MA[facility] Comment on above: Performed By: #### R ESCVID ####[place] [address] Chlamydophila pneumoniae Not detected Normal Not Detected [facility] MAIN Comment on above: Performed By: #### R ESCVID ####[place] [address] Coronavirus 229E (Not COVID-19) Not detected Normal Not Detected [facility] MAIN Comment on above: Performed By: #### R ESCVID ####[place] [address] Coronavirus HKU1 (Not COVID-19) Not detected Normal Not Detected [facility] MAIN Comment on above: Performed By: #### R ESCVID ####[place] [address] [place] [address] Coronavirus NL63 (Not COVID-19) Not detected Normal Not Detected [facility] MAIN Comment on above: Performed By: #### R ESCVID ####[facility] [place] [address] Coronavirus OC43 (Not COVID-19) Not detected Normal Not Detected [facility] MA[facility] Comment on above: Performed By: #### R ESCVID ####[facility] [place] [address] Human Metapneumovirus Not detected Normal Not Detected [facility] MA[facility] Comment on above: Performed By: #### R ESCVID ####[facility] [place] [address] Influenza A Not detected Normal Not Detected [facility] MA[facility] Comment on above: Performed By: #### R ESCVID ####[place] [address] Influenza B Not detected Normal Not Detected [facility] Comment on above: Performed By: #### R ESCVID ####[facility] [place] [address] Mycoplasma pneumoniae Not detected Normal Not Detected [facility] Comment on above: Performed By: #### R ESCVID ####[facility] [place] [address] Parainfluenza 1 Not detected Normal Not Detected [facility] Comment on above: Performed By: #### R ESCVID ####[facility] [place] [address] Parainfluenza 2 Not detected Normal Not Detected [facility] Comment on above: Performed By: #### R ESCVID ####[facility] [place] [address] Parainfluenza 3 Not detected Normal Not Detected [facility] Comment on above: Performed By: #### R ESCVID ####[facility] [place] [address] Parainfluenza 4 Not detected Normal Not Detected [facility] Comment on above: Performed By: #### R ESCVID ####[place] [address] Respiratory Syncytial Virus Not detected Normal Not Detected [facility] Comment on above: Performed By: #### R ESCVID ####[place] [address] Rhinovirus/Enteroviru s Not detected Normal Not Detected [facility] Comment on above: Performed By: #### R ESCVID ####[place] [address] SARS-CoV-2 (COVID-19) RNA DOV+probe Ql (Unsp spec) Not detected Normal Not Detected [facility] Comment on above: Result Comment: This assay has been validated in the [facility] for use with nasopharyngeal specimens in [facility]. If a non-validated specimen or test collection [...] health authorities. Performed By: #### R ESCVID ####[place] [address] SPAGon 05-13-2024 SPAG Normal [facility] TROPHSon 05-13-2024 High Sensitivity Troponin I 38 ng/L High 0-34 [facility] Comment on above: Result Comment: High Sensitive Troponin I Reference Ranges:Female: 0-34 ng/LMale: 0-54 ng/LTesting performed on Xetawave IM analyzer using direct chemiluminescent technology. Performed By: #### M G, PHOS, CAION, CMP, MYCO, GFR, CBC, TROPHS, ADIFF, ANEU ####[place] [address] UAon 05-13-2024 Color (U) Yellow Normal [facility] Comment on above: Performed By: #### U A, UAMIC ####[place] [address] Glucose (U) [Mass/Vol] Negative Normal Negative [facility] Comment on above: Performed By: #### U A, UAMIC ####[place] [address] Ketones Ql (U) Negative Normal Neg-Trace [facility] Comment on above: Performed By: #### U A, UAMIC ####[place] [address] UA Appear Clear Normal Clear [facility] Comment on above: Performed By: #### U A, UAMIC ####[place] [address] UA Blood Large Abnormal Neg-Trace [facility] Comment on above: Performed By: #### U A, UAMIC ####[place] [address] UA Leuk Est Small Abnormal Negative [facility] Comment on above: Performed By: #### U A, UAMIC ####[place] [address] UA Nitrite Negative Normal Negative [facility] Comment on above: Performed By: #### U A, UAMIC ####[place] [address] UA pH 5.5 Normal 5.0 - 8.0 [facility] Comment on above: Performed By: #### U A, UAMIC ####[place] [address] UA Protein Trace Normal Negative [facility] Comment on above: Performed By: #### U A, UAMIC ####[place] [address] UA Spec Grav 1.015 Normal 1.006-1.029 [facility] Comment on above: Performed By: #### U A, UAMIC ####[place] [address] UA Specimen Type Beckwith Catheter Normal [facility] Comment on above: Performed By: #### U A, UAMIC ####[place] [address] UA Urobilinogen 0.2 E.U./dL Normal 0.2-1.0 [facility] Comment on above: Performed By: #### U A, UAMIC ####[place] [address] Urobilinogen (U) [Mass/Vol] Negative Normal Neg-Trace [facility] Comment on above: Performed By: #### U A, UAMIC ####[place] [address] UAMICon 05-13-2024 UA Amorphus Trace Normal [facility] Comment on above: Performed By: #### U A, UAMIC ####[place] [address] UA Bacteria Trace Abnormal Negative [facility] Comment on above: Performed By: #### U A, UAMIC ####[place] [address] UA Coarse Granular Casts Rare Abnormal [facility] Comment on above: Performed By: #### U A, UAMIC ####[place] [address] UA RBC 25-50 Abnormal 0-2 [facility] Comment on above: Performed By: #### U A, UAMIC ####[place] [address] UA Squam Epithelial 3-5 Normal 0-[address] [facility] Comment on above: Performed By: #### U A, UAMIC ####[facility] [place] [address] UA WBC 0-2 Normal 0-5 [facility] Comment on above: Performed By: #### U A, UAMIC ####[place] [address] [place] [address] XR CHEST 1 VIEWon 05-13-2024 XR CHEST 1 VIEW Normal [facility] XR CHEST 1 VIEW Normal [facility] XR CHEST 1 VIEW Normal [facility] XR ENTERIC TUBE PLACEMENTon 05-13-2024 XR ENTERIC TUBE PLACEMENT Normal [facility] .Auto Diffon 05-12-2024 Basophil, Absolute 0.1 10 3/mcL Normal 0.0-0.2 [facility] Comment on above: Performed By: #### C BC, ANEU, GFR, PBNP, BMP, TROPHS, MG, MDW, ADIFF #### [address] [address] Basophils/100 WBC (Bld) 0.4 % Normal 0.0-2.5 [facility] Comment on above: Performed By: #### C BC, ANEU, GFR, PBNP, BMP, TROPHS, MG, MDW, ADIFF #### [address] [address] Eosinophil, Absolute 0.6 10 3/mcL Normal 0.0-0.7 [facility] Comment on above: Performed By: #### C BC, ANEU, GFR, PBNP, BMP, TROPHS, MG, MDW, ADIFF #### [address] [address] Eosinophils/100 WBC (Bld) 3.5 % Normal 0.0-7.0 [facility] Comment on above: Performed By: #### C BC, ANEU, GFR, PBNP, BMP, TROPHS, MG, MDW, ADIFF #### [address] [address] Lymphocyte, Absolute 1.4 10 3/mcL Normal 0.9-4.3 [facility] Comment on above: Performed By: #### C BC, ANEU, GFR, PBNP, BMP, TROPHS, MG, MDW, ADIFF #### [address] [address] Lymphocytes/100 WBC (Bld) 8.2 % Low 20.0-40.0 [facility] Comment on above: Performed By: #### C BC, ANEU, GFR, PBNP, BMP, TROPHS, MG, MDW, ADIFF #### [address] [address] Monocyte, Absolute 1.1 10 3/mcL Normal 0.1-1.4 [facility] Comment on above: Performed By: #### C BC, ANEU, GFR, PBNP, BMP, TROPHS, MG, MDW, ADIFF #### [address] [address] Monocytes/100 WBC (Bld) 6.6 % Normal 2.0-13.0 [facility] Comment on above: Performed By: #### C BC, ANEU, GFR, PBNP, BMP, TROPHS, MG, MDW, ADIFF #### [address] [address] Neutrophils/100 WBC (Bld) 81.3 % High 50.0-75.0 [facility] Comment on above: Performed By: #### C BC, ANEU, GFR, PBNP, BMP, TROPHS, MG, MDW, ADIFF #### [address] [address] .GFRon 05-12-2024 Estimated Glomerular Filtration Rate 58 ml/min/1.73sqm Normal [facility] Comment on above: Result Comment: Stages of [...] PBNP, BMP, TROPHS, MG, MDW, ADIFF #### [place] [address] .MDWon 05-12-2024 Monocyte Distribution Width 20.86 High 0.00-20.00 [facility] Comment on above: Result Comment: For adults in ED, MDW>20.0 may be associated with a higher risk of sepsis during the first 12hrs of hospital admission The predictive value of MDW for identifying sepsis in patients with hematological abnormalities has not been established Performed By: #### C BC, ANEU, GFR, PBNP, BMP, TROPHS, MG, MDW, ADIFF #### [place] [address] .Morphon 05-12-2024 Platelet Estimate Normal Normal [facility] Comment on above: Performed By: #### C BC, ANEU, GFR, PBNP, BMP, TROPHS, MG, MDW, ADIFF #### [place] [address] RBC morphology finding Nom (Bld) Normal Normal [facility] Comment on above: Performed By: #### C BC, ANEU, GFR, PBNP, BMP, TROPHS, MG, MDW, ADIFF #### [place] [address] .NEUABSon 05-12-2024 Neutrophil, Absolute 14.0 10 3/mcL High 2.3-8.1 [facility] Comment on above: Performed By: #### C BC, ANEU, GFR, PBNP, BMP, TROPHS, MG, MDW, ADIFF #### [place] [address] CBCon 05-12-2024 Erythrocyte distribution width (RBC) [Ratio] 15.2 % Normal 11.5-15.5 [facility] Comment on above: Performed By: #### C BC, ANEU, GFR, PBNP, BMP, TROPHS, MG, MDW, ADIFF #### [place] [address] Hematocrit (Bld) [Volume fraction] 37.8 % Normal 34.0-46.0 [facility] Comment on above: Performed By: #### C BC, ANEU, GFR, PBNP, BMP, TROPHS, MG, MDW, ADIFF #### [place] [address] Hgb 11.9 G/dL Low 12.0-16.0 [facility] Comment on above: Performed By: #### C BC, ANEU, GFR, PBNP, BMP, TROPHS, MG, MDW, ADIFF #### [place] [address] MCH (RBC) [Entitic mass] 32.2 pg Normal 27.0-33.0 [facility] Comment on above: Performed By: #### C BC, ANEU, GFR, PBNP, BMP, TROPHS, MG, MDW, ADIFF #### [place] [address] MCHC 31.4 G/dL Low 32.0-36.0 [facility] Comment on above: Performed By: #### C BC, ANEU, GFR, PBNP, BMP, TROPHS, MG, MDW, ADIFF #### [place] [address] MCV (RBC) [Entitic vol] 102.6 fL High 80.0-99.0 [facility] Comment on above: Performed By: #### C BC, ANEU, GFR, PBNP, BMP, TROPHS, MG, MDW, ADIFF #### [place] [address] Platelet 222 10 3/mcL Normal 150-450 [facility] Comment on above: Performed By: #### C BC, ANEU, GFR, PBNP, BMP, TROPHS, MG, MDW, ADIFF #### [address] [address] Platelet mean volume (Bld) [Entitic vol] 9.2 fL Normal 6.6-10.5 [facility] Comment on above: Performed By: #### C BC, ANEU, GFR, PBNP, BMP, TROPHS, MG, MDW, ADIFF #### [address] [address] RBC 3.69 10 6/mcL Low 4.10-5.30 [facility] Comment on above: Performed By: #### C BC, ANEU, GFR, PBNP, BMP, TROPHS, MG, MDW, ADIFF #### [address] [address] WBC 17.2 10 3/mcL High 4.5-10.8 [facility] Comment on above: Performed By: #### C BC, ANEU, GFR, PBNP, BMP, TROPHS, MG, MDW, ADIFF #### [address] [address] CMPon 05-12-2024 Albumin Level 3.2 G/dL Low 3.5-5.0 [facility] Comment on above: Performed By: #### C BC, ANEU, GFR, PBNP, BMP, TROPHS, MG, MDW, ADIFF #### [address] [address] Albumin/Globulin [Mass ratio] 0.6 {ratio} Low 1.1-2.5 [facility] Comment on above: Performed By: #### C BC, ANEU, GFR, PBNP, BMP, TROPHS, MG, MDW, ADIFF #### [address] [address] ALP [Catalytic activity/Vol] 142 U/L High 40-135 [facility] Comment on above: Performed By: #### C BC, ANEU, GFR, PBNP, BMP, TROPHS, MG, MDW, ADIFF #### [address] [address] ALT [Catalytic activity/Vol] 76 U/L High 14-59 [facility] Comment on above: Performed By: #### C BC, ANEU, GFR, PBNP, BMP, TROPHS, MG, MDW, ADIFF #### [address] [address] AST [Catalytic activity/Vol] 73 U/L High 10-40 [facility] Comment on above: Performed By: #### C BC, ANEU, GFR, PBNP, BMP, TROPHS, MG, MDW, ADIFF #### [address] [address] Bili Total 0.7 mg/dL Normal 0.2-1.0 [facility] Comment on above: Result Comment: Use of this assay is not recommended for patients undergoing treatment with eltrombopag due to the potential for falsely elevated results. Performed By: #### C BC, ANEU, GFR, PBNP, BMP, TROPHS, MG, MDW, ADIFF #### [address] [address] BUN/Creatinine Ratio 40 ratio High 7-27 [facility] Comment on above: Performed By: #### C BC, ANEU, GFR, PBNP, BMP, TROPHS, MG, MDW, ADIFF #### [address] [address] Calcium [Mass/Vol] 9.3 mg/dL Normal 8.4-10.2 [facility] Comment on above: Performed By: #### C BC, ANEU, GFR, PBNP, BMP, TROPHS, MG, MDW, ADIFF #### [address] [address] Chloride [Moles/Vol] 95 mmol/L Low 98-107 [facility] Comment on above: Performed By: #### C BC, ANEU, GFR, PBNP, BMP, TROPHS, MG, MDW, ADIFF #### [address] [address] CO2 [Moles/Vol] 43 mmol/L Critically abnormal 22-29 [facility] Comment on above: Performed By: #### C BC, ANEU, GFR, PBNP, BMP, TROPHS, MG, MDW, ADIFF #### [address] [address] Creatinine [Mass/Vol] 1.20 mg/dL High 0.55-1.02 [facility] Comment on above: Result Comment: Test ing performed on Siemens Dimension EXL analyzer using a modified kinetic Melanie technique. Performed By: #### C BC, ANEU, GFR, PBNP, BMP, TROPHS, MG, MDW, ADIFF #### [address] [address] Electrolyte Balance 3.0 mEq/L Low 4.0-15.0 [facility] Comment on above: Performed By: #### C BC, ANEU, GFR, PBNP, BMP, TROPHS, MG, MDW, ADIFF #### [address] [address] Globulin 5.4 G/dL High 1.5-3.8 [facility] Comment on above: Performed By: #### C BC, ANEU, GFR, PBNP, BMP, TROPHS, MG, MDW, ADIFF #### [address] [address] Glucose [Mass/Vol] 107 mg/dL High 70-105 [facility] Comment on above: Performed By: #### C BC, ANEU, GFR, PBNP, BMP, TROPHS, MG, MDW, ADIFF #### [address] [address] Potassium [Moles/Vol] 5.1 mmol/L Normal 3.5-5.1 [facility] Comment on above: Performed By: #### C BC, ANEU, GFR, PBNP, BMP, TROPHS, MG, MDW, ADIFF #### [address] [address] Sodium [Moles/Vol] 141 mmol/L Normal 136-145 [facility] Comment on above: Performed By: #### C BC, ANEU, GFR, PBNP, BMP, TROPHS, MG, MDW, ADIFF #### [address] [address] Total Protein 8.6 G/dL High 6.4-8.2 [facility] Comment on above: Performed By: #### C BC, ANEU, GFR, PBNP, BMP, TROPHS, MG, MDW, ADIFF #### [address] [address] Urea nitrogen [Mass/Vol] 48 mg/dL High 7-18 [facility] Comment on above: Performed By: #### C BC, ANEU, GFR, PBNP, BMP, TROPHS, MG, MDW, ADIFF #### [address] [address] CVFLURVon 05-12-2024 FLU A PCR Negative Normal Negative [facility] Comment on above: Performed By: #### C BC, ANEU, GFR, PBNP, BMP, TROPHS, MG, MDW, ADIFF #### [address] [address] FLU B PCR Negative Normal Negative [facility] Comment on above: Performed By: #### C BC, ANEU, GFR, PBNP, BMP, TROPHS, MG, MDW, ADIFF #### [address] [address] RSV PCR Negative Normal Negative [facility] Comment on above: Performed By: #### C BC, ANEU, GFR, PBNP, BMP, TROPHS, MG, MDW, ADIFF #### [address] [address] SARS-CoV-2 (COVID-19) RNA DOV+probe Ql (Unsp spec) Negative Normal Negative [facility] Comment on above: Result Comment: Resu lts [...] PBNP, BMP, TROPHS, MG, MDW, ADIFF #### [address] [address] PBNPon 05-12-2024 Natriuretic peptide B (Bld) [Mass/Vol] 8761 pg/mL High 0-125 [facility] Comment on above: Result Comment: NT-p roBNP results of less than 300 pg/mL effectively rules out acute congestive heart failure with 99% negative predictive value. Performed By: #### C BC, ANEU, GFR, PBNP, BMP, TROPHS, MG, MDW, ADIFF #### [address] [address] TROPHSon 05-12-2024 High Sensitivity Troponin I 29 ng/L Normal 0-51 [facility] Comment on above: Result Comment: High Sensitive Troponin I Reference Ranges: Female: 0-51 ng/L Male: 0-76 ng/L Testing performed on Truck[employer] using a homogeneous sandwich chemiluminescent immunoassay based on Casagem technology. Performed By: #### C BC, ANEU, GFR, PBNP, BMP, TROPHS, MG, MDW, ADIFF #### [address] [address] XR CHEST 1 VIEWon 05-12-2024 XR CHEST [...] 05/12/2024 10:33:35 PM [facility]ing [facility] ) SIA ABDUL ([id number]) 1980 F Date Time Provider Department 05/10/24 1:40 PM MIKA KAPLAN During your visit today, we recorded the following information about you: Mika Kaplan APRN.CNP 05/10/2024 4:39 PM [facility] Patient presents with: Recheck: ER follow up, cellulitis HPI Louissugar Abdul is a 43 year old female who presents today for recent Hospital stay for cellulitis and anxiety Was at [facility] on 04/28-05/02 for exacerbation of CHF and is following with Dr. 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 Is on torsemide for this and another [...] with anxious feelings. Is having trouble sleeping. [employer] bought her intermediate last year and made changes which have not made her very trusting of them. Patient very negative with description of her current caretakers of her intermediate. Feels they do not feel her well [...] Take 1 tablet by mouth once daily. Owqtp-3-ASO-EPA-Fish Oil 1,000 mg (120 mg-180 mg) cap [...] TO AF (more content not included)... Normal [facility] .Auto Diffon 05-08-2024 Basophil, Absolute 0.1 10 3/mcL Normal 0.0-0.2 [facility] Comment on above: Performed By: #### C BC, ANEU, GFR, PBNP, BMP, TROPHS, MG, MDW, ADIFF #### [address] [address] Basophils/100 WBC (Bld) 0.7 % Normal 0.0-2.5 [facility] Comment on above: Performed By: #### C BC, ANEU, GFR, PBNP, BMP, TROPHS, MG, MDW, ADIFF #### [address] [address] Eosinophil, Absolute 0.3 10 3/mcL Normal 0.0-0.7 [facility] Comment on above: Performed By: #### C BC, ANEU, GFR, PBNP, BMP, TROPHS, MG, MDW, ADIFF #### [address] [address] Eosinophils/100 WBC (Bld) 3.0 % Normal 0.0-7.0 [facility] Comment on above: Performed By: #### C BC, ANEU, GFR, PBNP, BMP, TROPHS, MG, MDW, ADIFF #### [address] [address] Lymphocyte, Absolute 1.3 10 3/mcL Normal 0.9-4.3 [facility] Comment on above: Performed By: #### C BC, ANEU, GFR, PBNP, BMP, TROPHS, MG, MDW, ADIFF #### [address] [address] Lymphocytes/100 WBC (Bld) 11.1 % Low 20.0-40.0 [facility] Comment on above: Performed By: #### C BC, ANEU, GFR, PBNP, BMP, TROPHS, MG, MDW, ADIFF #### [address] [address] Monocyte, Absolute 1.3 10 3/mcL Normal 0.1-1.4 [facility] Comment on above: Performed By: #### C BC, ANEU, GFR, PBNP, BMP, TROPHS, MG, MDW, ADIFF #### [address] [address] Monocytes/100 WBC (Bld) 11.2 % Normal 2.0-13.0 [facility] Comment on above: Performed By: #### C BC, ANEU, GFR, PBNP, BMP, TROPHS, MG, MDW, ADIFF #### [address] [address] Neutrophils/100 WBC (Bld) 74.0 % Normal 50.0-75.0 [facility] Comment on above: Performed By: #### C BC, ANEU, GFR, PBNP, BMP, TROPHS, MG, MDW, ADIFF #### [address] [address] .MDWon 05-08-2024 Monocyte Distribution Width 18.10 Normal 0.00-20.00 [facility] Comment on above: Result Comment: For ED adult patients suspected of sepsis, MDW<=20.0 does not rule out sepsis or risk of sepsis Performed By: #### C BC, ANEU, GFR, PBNP, BMP, TROPHS, MG, MDW, ADIFF #### [place] [address] .NEUABSon 05-08-2024 Neutrophil, Absolute 8.6 10 3/mcL High 2.3-8.1 [facility] Comment on above: Performed By: #### C BC, ANEU, GFR, PBNP, BMP, TROPHS, MG, MDW, ADIFF #### [place] [address] CBCon 05-08-2024 Erythrocyte distribution width (RBC) [Ratio] 15.1 % Normal 11.5-15.5 [facility] Comment on above: Performed By: #### C BC, ANEU, GFR, PBNP, BMP, TROPHS, MG, MDW, ADIFF #### [place] [address] Hematocrit (Bld) [Volume fraction] 38.2 % Normal 34.0-46.0 [facility] Comment on above: Performed By: #### C BC, ANEU, GFR, PBNP, BMP, TROPHS, MG, MDW, ADIFF #### [place] [address] Hgb 12.3 G/dL Normal 12.0-16.0 [facility] Comment on above: Performed By: #### C BC, ANEU, GFR, PBNP, BMP, TROPHS, MG, MDW, ADIFF #### [address] [address] MCH (RBC) [Entitic mass] 32.2 pg Normal 27.0-33.0 [facility] Comment on above: Performed By: #### C BC, ANEU, GFR, PBNP, BMP, TROPHS, MG, MDW, ADIFF #### [address] [address] MCHC 32.1 G/dL Normal 32.0-36.0 [facility] Comment on above: Performed By: #### C BC, ANEU, GFR, PBNP, BMP, TROPHS, MG, MDW, ADIFF #### [address] [address] MCV (RBC) [Entitic vol] 100.2 fL High 80.0-99.0 [facility] Comment on above: Performed By: #### C BC, ANEU, GFR, PBNP, BMP, TROPHS, MG, MDW, ADIFF #### [address] [address] Platelet 200 10 3/mcL Normal 150-450 [facility] Comment on above: Performed By: #### C BC, ANEU, GFR, PBNP, BMP, TROPHS, MG, MDW, ADIFF #### [address] [address] Platelet mean volume (Bld) [Entitic vol] 8.9 fL Normal 6.6-10.5 [facility] Comment on above: Performed By: #### C BC, ANEU, GFR, PBNP, BMP, TROPHS, MG, MDW, ADIFF #### [address] [address] RBC 3.81 10 6/mcL Low 4.10-5.30 [facility] Comment on above: Performed By: #### C BC, ANEU, GFR, PBNP, BMP, TROPHS, MG, MDW, ADIFF #### [facility] [address] [place], [place] [address] WBC 11.6 10 3/mcL High 4.5-10.8 [facility] Comment on above: Performed By: #### C BC, ANEU, GFR, PBNP, BMP, TROPHS, MG, MDW, ADIFF #### [facility] [address] [place], [place] [address] LABORATORYOrdered By: SYSTEM SYSTEM on 05-08-2024 Basophils [...] Routine cultures are held for 5 days. [facility] ACTH, PLASMAon 05-06-2024 ACTH, PLASMA 19 pg/mL Normal 6-50 [facility] Comment on above: Result Comment: Reference range applies only to specimens collected between 7am-10am. Performed By: #### 1 0314, 4212, 899, 866 #### [facility] [address] [facility], [address] [place] [address] Top Frame Maker: Daniel Burt MD #### 211 #### [facility] [address] [facility] [address] Top Frame Maker: J Carlos Cedillo M.D.,PhD CORTISOL, A.M.on 05-06-2024 CORTISOL, A.M. 14.1 mcg/dL Normal [facility] Comment on above: Result Comment: Refe rence Range 8 a.m. (7-9 a.m.) Specimen: 4.0-22.0 Performed By: #### 1 0314, 4212, 899, 866 #### [facility] [address], [address] [place] [address] Top Frame Maker: Daniel Burt MD #### 211 #### [facility]/[place] [id number] [facility] [place], [place] Top Frame Maker: J Carlos Cedillo M.D.,PhD RENAL FUNCTION PANELon 05-06 Albumin [Mass/Vol] 4.2 g/dL Normal 3.6-5.1 [facility] Comment on above: Order Comment: FASTI NG:NO PATIENT NOT FASTING; ADVISED TO RETURN FOR COLLECTION. FASTING: NO Performed By: #### 1 0314, 421, 899, 866 #### [facility] [address], [address] [place] [address] Top Frame Maker: Daniel Burt MD #### 211 #### [facility]/[address] [place], [place] Top Frame Maker: J Carlos Cedillo M.D.,PhD BUN/CREATININE RATIO SEE NOTE: Normal 6-22 [facility] Comment on above: Order Comment: FASTI NG:NO PATIENT NOT FASTING; ADVISED TO RETURN FOR COLLECTION. FASTING: NO Result Comment: Not Reported: BUN and Creatinine are within reference range. Performed By: #### 1 031, 4211, 899, 866 #### [facility] [address], [address] [place] [address] Top Frame Maker: Daniel Burt MD #### 211 #### [facility]/[place] [id number] [facility] [place], [place] Top Frame Maker: J Carlos Cedillo M.D.,PhD Calcium [Mass/Vol] 9.2 mg/dL Normal 8.6-10.2 [facility] Comment on above: Order Comment: FASTI NG:NO PATIENT NOT FASTING; ADVISED TO RETURN FOR COLLECTION. FASTING: NO Performed By: #### 1 0314, 421, 899, 866 #### [facility] [address], [address] [place] [address] Top Frame Maker: Daniel Burt MD #### 211 #### [facility]/[address] [place], [place] Top Frame Maker: J Carlos Cedillo M.D.,PhD Chloride [Moles/Vol] 93 mmol/L Low 98-110 [facility] Comment on above: Order Comment: FASTI NG:NO PATIENT NOT FASTING; ADVISED TO RETURN FOR COLLECTION. FASTING: NO Performed By: #### 1 0314, 421, 899, 866 #### [facility] [address], [address] [place] [address] Top Frame Maker: Daniel Burt MD #### 211 #### [facility]/[address] [place], [place] Top Frame Maker: J Carlos Cedillo M.D.,PhD CO2 [Moles/Vol] 38 mmol/L High 20-32 [facility] Comment on above: Order Comment: FASTI NG:NO PATIENT NOT FASTING; ADVISED TO RETURN FOR COLLECTION. FASTING: NO Performed By: #### 1 [id number], [id number], [id number], [id number] #### [facility] [address], [address] [place], [place] [id number] Top Frame Maker: Daniel Burt MD #### 211 #### [facility]/[address] [place], [place] Top Frame Maker: J Carlos Cedillo M.D.,PhD Creatinine [Mass/Vol] 0.60 mg/dL Normal 0.50-0.99 [facility] Comment on above: Order Comment: FASTI NG:NO PATIENT NOT FASTING; ADVISED TO RETURN FOR COLLECTION. FASTING: NO Performed By: #### 1 0314, [id number], [id number], [id number] #### [facility] [address] Street, [address] [place] [address] Top Frame Maker: Daniel Burt MD #### 211 #### [facility]/[address] [place], [place] Top Frame Maker: J Carlos Cedillo M.D.,PhD GFR/1.73 sq M.predicted among non-blacks MDRD (S/P/Bld) [Vol rate/Area] 116 mL/min/{1.73_m2} Normal > OR = 60 [facility] Comment on above: Order Comment: FASTI NG:NO PATIENT NOT FASTING; ADVISED TO RETURN FOR COLLECTION. FASTING: NO Performed By: #### 1 0314, 4212, 899, 866 #### [facility] [address], [address] [place], [place] [address] Top Frame Maker: Daniel Burt MD #### 211 #### [facility]/[address] [place], [place] Top Frame Maker: J Carlos Cedillo M.D.,PhD Glucose [Mass/Vol] 71 mg/dL Normal 65-139 [facility] Comment on above: Order Comment: FASTI NG:NO PATIENT NOT FASTING; ADVISED TO RETURN FOR COLLECTION. FASTING: NO Result Comment: Non-fasting reference interval Performed By: #### 1 0314, 421, 899, 866 #### [facility] [address], [address] [place], [place] [address] Top Frame Maker: Daniel Burt MD #### 211 #### [facility]/[address] [place], [place] Top Frame Maker: J Carlos Cedillo M.D.,PhD Phosphate [Mass/Vol] 4.2 mg/dL Normal 2.5-4.5 [facility] Comment on above: Order Comment: FASTI NG:NO PATIENT NOT FASTING; ADVISED TO RETURN FOR COLLECTION. FASTING: NO Performed By: #### 1 0314, 4212, 899, 866 #### [facility] [address], [address] [place], [place] [address] Top Frame Maker: Daniel Burt MD #### 211 #### [facility] [address] [place] Top Frame Maker: J Carlos Cedillo M.D.,PhD Potassium [Moles/Vol] 4.2 mmol/L Normal 3.5-5.3 [facility] Comment on above: Order Comment: FASTI NG:NO PATIENT NOT FASTING; ADVISED TO RETURN FOR COLLECTION. FASTING: NO Performed By: #### 1 0314, 4212, 899, 866 #### [facility] [address], [address] [place], [place] [address] Top Frame Maker: Daniel Burt MD #### 211 #### [facility] [address] [place] Top Frame Maker: J Carlos Cedillo M.D.,PhD Sodium [Moles/Vol] 143 mmol/L Normal 135-146 [facility] Comment on above: Order Comment: FASTI NG:NO PATIENT NOT FASTING; ADVISED TO RETURN FOR COLLECTION. FASTING: NO Performed By: #### 1 0314, 421, 899, 866 #### [facility] [address], [address] [place], [place] [address] Top Frame Maker: Daniel Burt MD #### 211 #### [facility] [address] [place] Top Frame Maker: J Carlos Cedillo M.D.,PhD Urea nitrogen [Mass/Vol] 18 mg/dL Normal 7-25 [facility] Comment on above: Order Comment: FASTI NG:NO PATIENT NOT FASTING; ADVISED TO RETURN FOR COLLECTION. FASTING: NO Performed By: #### 1 0314, 4212, 899, 866 #### [facility] [address], [address] [place], [place] [address] Top Frame Maker: Daniel Burt MD #### 211 #### [facility] [address] [place] Top Frame Maker: J Carlos Cedillo M.D.,PhD T4, FREE 05-06-2024 Free T4 [Mass/Vol] 1.5 ng/dL Normal 0.8-1.8 [facility] Comment on above: Performed By: #### 1 0314, 4212, 899, 866 #### [place] [address] Top Frame Maker: Daniel Burt MD #### 211 #### [facility]/[address] [place], [place] Top Frame Maker: J Carlos Cedillo M.D.,PhD TSH 05-06-2024 TSH Qn 4.14 m[IU]/L Normal [facility] Comment on above: Result Comment: Refe rence Range > or = 20 Years 0.40-4.50 Ranges First trimester 0.26-2.66 Second trimester 0.55-2.73 Third trimester 0.43-2.91 Performed By: #### 1 0314, 4212, 899, 866 #### [facility] [address] Top Frame Maker: Daniel Burt MD #### 211 #### [facility]/[address] [place], [place] Top Frame Maker: J Carlos Cedillo M.D.,PhD [facility] 05-05-2024 [facility] Telephone (INTWS) SIA ABDUL ([id number]) 1980 F Date Time Provider Department 05/05/24 MARILEE THAKUR INTWS During your visit today, we recorded the following information about you: Candelaria Ball LPN 05/05/2024 3:31 PM Signed Leia from [facility] calling asking for a new verbal order for PT plan of care 2 visits weekly for 4 weeks, please. Please advise Mika Kaplan APRN.OBED 05/06/2024 8:06 AM Signed Agree with order for PT. Thank you Mika Kaplan APRN.CATERERS HELPER AustinMaría russellCOMFORT 05/06/2024 8:18 AM Signed Leia [...] 1 tablet by mouth once daily. - Ywron-0-PJW-EPA-Fish Oil 1,000 mg (120 mg-180 mg) cap [...] Obstructive sl (more content not included)... Normal [facility] No Panel Informationon 05-05 FASTING:NO PATIENT NOT FASTING; ADVISED TO RETURN FOR COLLECTION. FASTING: NO [facility] Renal function 2000 panelon 05-05-2024 Albumin [Mass/Vol] 4.2 g/dL 3.6 - 5.1 g/dL [facility] Calcium [Mass/Vol] 9.2 mg/dL 8.6 - 10. 2 mg/dL [facility] Chloride [Moles/Vol] 93 mmol/L Low 98 - 11 0 mmol/L [facility] CO2 [Moles/Vol] 38 mmol/L High 20 - 32 mmol/L [facility] Creatinine [Mass/Vol] 0.6 mg/dL 0.50 - 0.99 mg/dL [facility] GFR/1.73 sq M.predicted among non-blacks MDRD (S/P/Bld) [Vol rate/Area] 116 mL/min/{1.73_m2} > OR = 60 mL/min/1.73m 2 [facility] Glucose [Mass/Vol] 71 mg/dL 65 - 139 mg/dL [facility] Comment on above: Non-fasting reference interval Interpretation and review of laboratory results Abnormal [facility] Phosphate [Mass/Vol] 4.2 mg/dL 2.5 - 4 .5 mg/dL [facility] Potassium [Moles/Vol] 4.2 mmol/L 3.5 - 5.3 mmol/L [facility] Sodium [Moles/Vol] 143 mmol/L 135 - 146 mmol/L [facility] Urea nitrogen [Mass/Vol] 18 mg/dL 7 - 25 mg/dL [facility] Urea nitrogen/Creatinine [Mass ratio] SEE NOTE: [facility] Comment on above: Not Reported: BUN an d Creatinine are within reference range. Thyroid Stimulating Hormoneo n 05-05-2024 TSH Qn 4.14 m[IU]/L mIU/L [facility] Comment on above: Reference Range > or = 20 Years 0.40-4.50 Ranges First trimester 0.26-2.66 Second trimester 0.55-2.73 Third trimester 0.43-2.91 Thyroxine, Freeon 05-05-2024 Free T4 [Mass/Vol] 1.5 ng/dL 0.8 - 1.8 ng/dL [facility] POCT glycosylated hemoglobin (Hb A1C) manually resultedon 05-04-2024 HbA1c (Bld) [Mass fraction] 5.4 % 4.2 - 6.5 % [facility] Work Phone: [facility] Work Phone: Basic Metabolic Profile (BMP )on 05-03-2024 BUN Normal 7-18 [facility] Comment on above: Result Comment: Canc elled via OM: Order cancelled - Patient discharged Performed By: #### L 500.2500 ####[facility] [address] [place], [address] BUN/CRE Normal 10-20 [facility] Comment on above: Result Comment: Canc elled via OM: Order cancelled - Patient discharged Performed By: #### L 500.2500 ####[facility] [address] [place], [address] CA,Total Normal 8.5-10.1 [facility] Comment on above: Result Comment: Canc elled via OM: Order cancelled - Patient discharged Performed By: #### L 500.2500 ####[facility] [address] [place], [address] CL Normal 98-107 [facility] Comment on above: Result Comment: Canc elled via OM: Order cancelled - Patient discharged Performed By: #### L 500.2500 ####[facility] [address] [place], [address] CO2 Normal 21.0-32.0 [facility] Comment on above: Result Comment: Canc elled via OM: Order cancelled - Patient discharged Performed By: #### L 500.2500 ####[facility] [address] [place], [address] CREAT,SERUM Normal 0.55-1.02 [facility] Comment on above: Result Comment: Canc elled via OM: Order cancelled - Patient discharged Performed By: #### L 500.2500 ####[facility] [address] [place], [address] EST GFR Normal >60 [facility] Comment on above: Result Comment: Canc elled via OM: Order cancelled - Patient discharged Performed By: #### L 500.2500 ####[facility] [address] [place], [address] EST GFR - AA Normal >60 [facility] Comment on above: Result Comment: Canc elled via OM: Order cancelled - Patient discharged Performed By: #### L 500.2500 ####[facility] [address] [facility] [place], [address] GAP Normal 5-15 [facility] Comment on above: Result Comment: Canc elled via OM: Order cancelled - Patient discharged Performed By: #### L 500.2500 ####[facility] [address] [place], [address] GLU Normal 74-106 [facility] Comment on above: Result Comment: Canc elled via OM: Order cancelled - Patient discharged Performed By: #### L 500.2500 ####[facility] [address] [place], [address] Potassium Normal 3.5-5.1 [facility] Comment on above: Result Comment: Canc elled via OM: Order cancelled - Patient discharged Performed By: #### L 500.2500 ####[facility] [address] [place], [address] Basic Metabolic Profile (BMP) Normal 136-145 [facility] Comment on above: Result Comment: Canc elled via OM: Order cancelled - Patient discharged Performed By: #### L 500.2500 ####[facility] [address] [place], [address] Basic Metabolic Profile (BMP )on 05-02-2024 BUN/CRE 46.7 RATIO High 10-20 [facility] Comment on above: Performed By: #### L 500.2500 ####[facility] [address] [place], [address] CA,Total 8.4 mg/dL Low 8.5-10.1 [facility] Comment on above: Performed By: #### L 500.2500 ####[facility] [address] [place], [address] Chloride [Moles/Vol] 101 mmol/L Normal 98-107 [facility] Comment on above: Performed By: #### L 500.2500 ####[facility] [address] [place], [address] CO2 [Moles/Vol] 40.0 mmol/L High 21.0-32.0 [facility] Comment on above: Performed By: #### L 500.2500 ####[facility] [address] [place], [address] Creatinine [Mass/Vol] 0.36 mg/dL Low 0.55-1.02 [facility] Comment on above: Result Comment: The validity of the calculated GFR GFRAA in patients over70 years has not been determined. Clinical correlation isessential. Performed By: #### L 500.2500 ####[facility] [address] [place], [address] ECRCL 266.93 ml/min Normal [facility] Comment on above: Performed By: #### L 500.2500 ####[facility] [address] [place], [address] EST GFR - AA 251 mL/min Normal >60 [facility] Comment on above: Result Comment: Afri can Japanese GFR Calc Performed By: #### L 500.2500 ####[facility] [address] [place], [address] GAP 5 Normal 5-15 [facility] Comment on above: Performed By: #### L 500.2500 ####[facility] [address] [place], [address] GFR/1.73 sq M.predicted among non-blacks MDRD (S/P/Bld) [Vol rate/Area] 208 mL/min/{1.73_m2} Normal >60 [facility] Comment on above: Result Comment: Non- GFR Calc Performed By: #### L 500.2500 ####[facility] [address] [place], [address] Glucose [Mass/Vol] 83 mg/dL Normal 74-106 [facility] Comment on above: Performed By: #### L 500.2500 ####[facility] [address] [place], [address] Potassium [Moles/Vol] 4.6 mmol/L Normal 3.5-5.1 [facility] Comment on above: Performed By: #### L 500.2500 ####[facility] [address] [place], [address] Sodium [Moles/Vol] 145 mmol/L Normal 136-145 [facility] Comment on above: Performed By: #### L 500.2500 ####[facility] [address] [place], [address] Urea nitrogen [Mass/Vol] 17 mg/dL Normal 7-18 [facility] Comment on above: Performed By: #### L 500.2500 ####[facility] [address] [place], [address] Discharge Instructionon 04-11 Discharge Instruction Normal [facility] Basic Metabolic Profile (BMP )on 05-01-2024 BUN/CRE 40.4 RATIO High 10-20 [facility] Comment on above: Performed By: #### L 100.0500, L500.2500 ####[facility] [address] [place], [address] CA,Total 8.5 mg/dL Normal 8.5-10.1 [facility] Comment on above: Performed By: #### L 100.0500, L500.2500 ####[facility] [address] [place], [address] Chloride [Moles/Vol] 99 mmol/L Normal 98-107 [facility] Comment on above: Performed By: #### L 100.0500, L500.2500 ####[facility] [address] [place], [address] CO2 [Moles/Vol] 43.0 mmol/L High 21.0-32.0 [facility] Comment on above: Performed By: #### L 100.0500, L500.2500 ####[facility] [address] [place], [address] Creatinine [Mass/Vol] 0.45 mg/dL Low 0.55-1.02 [facility] Comment on above: Result Comment: The validity of the calculated GFR GFRAA in patients over70 years has not been determined. Clinical correlation isessential. Performed By: #### L 100.0500, L500.2500 ####[facility] [address] [place], [address] ECRCL 213.54 ml/min Normal [facility] Comment on above: Performed By: #### L 100.0500, L500.2500 ####[facility] [address] [place], [address] EST GFR - AA 199 mL/min Normal >60 [facility] Comment on above: Result Comment: Afri can Japanese GFR Calc Performed By: #### L 100.0500, L500.2500 ####[facility] [address] [place], [address] GAP 0 Low 5-15 [facility] Comment on above: Performed By: #### L 100.0500, L500.2500 ####[facility] [address] [place], [address] GFR/1.73 sq M.predicted among non-blacks MDRD (S/P/Bld) [Vol rate/Area] 164 mL/min/{1.73_m2} Normal >60 [facility] Comment on above: Result Comment: Non- GFR Calc Performed By: #### L 100.0500, L500.2500 ####[facility] [address] [place], [address] Glucose [Mass/Vol] 82 mg/dL Normal 74-106 [facility] Comment on above: Performed By: #### L 100.0500, L500.2500 ####[facility] [address] [place], [address] Potassium [Moles/Vol] 3.9 mmol/L Normal 3.5-5.1 [facility] Comment on above: Performed By: #### L 100.0500, L500.2500 ####[facility] [address] [place], [address] Sodium [Moles/Vol] 142 mmol/L Normal 136-145 [facility] Comment on above: Performed By: #### L 100.0500, L500.2500 ####[facility] [address] [place], [address] Urea nitrogen [Mass/Vol] 18 mg/dL Normal 7-18 [facility] Comment on above: Performed By: #### L 100.0500, L500.2500 ####[facility] [address] [place], [address] CBC-Complete Blood Cnt No Di ffon 05-01-2024 Erythrocyte distribution width (RBC) [Ratio] 14.6 % Normal 11.6-14.6 [facility] Comment on above: Performed By: #### L 100.0500, L500.2500 ####[facility] [address] [place], [address] Hematocrit (Bld) [Volume fraction] 36.8 % Low 37-47 [facility] Comment on above: Performed By: #### L 100.0500, L500.2500 ####[facility] [address] [place], [address] Hemoglobin (Bld) [Mass/Vol] 10.7 g/dL Low 12.0-15.0 [facility] Comment on above: Performed By: #### L 100.0500, L500.2500 ####[facility] [address] [place], [address] MCH (RBC) [Entitic mass] 31.4 pg Normal 27.0-32.0 [facility] Comment on above: Performed By: #### L 100.0500, L500.2500 ####[facility] [address] [place], [address] MCHC (RBC) [Mass/Vol] 29.1 g/dL Low 32-36 [facility] Comment on above: Performed By: #### L 100.0500, L500.2500 ####[facility] [address] [place], [address] MCV (RBC) [Entitic vol] 107.9 fL High 81-99 [facility] Comment on above: Performed By: #### L 100.0500, L500.2500 ####[facility] [address] [place], [address] Platelet mean volume (Bld) [Entitic vol] 12.0 fL Normal 6.2-12.0 [facility] Comment on above: Performed By: #### L 100.0500, L500.2500 ####[facility] [address] [place], [address] Platelets (Bld) [#/Vol] 145 10*3/uL Low 150-450 [facility] Comment on above: Performed By: #### L 100.0500, L500.2500 ####[facility] [address] [place], [address] RBC (Bld) [#/Vol] 3.41 10*6/uL Low 4.2-5.4 [facility] Comment on above: Performed By: #### L 100.0500, L500.2500 ####[facility] [address] [place], [address] RDW SD 57.2 fl High 35.1-43.9 [facility] Comment on above: Performed By: #### L 100.0500, L500.2500 ####[facility] [address] [place], [address] WBC (Bld) [#/Vol] 11.7 10*3/uL High 4.4-11.0 [facility] Comment on above: Performed By: #### L 100.0500, L500.2500 ####[facility] [address] [place], [address] Basic Metabolic Profile (BMP )on 04-30-2024 BUN/CRE 38.7 RATIO High 10-20 [facility] Comment on above: Performed By: #### L 500.2500 ####[facility] [address] [place], [address] CA,Total 8.5 mg/dL Normal 8.5-10.1 [facility] Comment on above: Performed By: #### L 500.2500 ####[facility] [address] [place], [address] Chloride [Moles/Vol] 100 mmol/L Normal 98-107 [facility] Comment on above: Performed By: #### L 500.2500 ####[facility] [address] [place], [address] CO2 [Moles/Vol] 41.0 mmol/L High 21.0-32.0 [facility] Comment on above: Performed By: #### L 500.2500 ####[facility] [address] [place], [address] Creatinine [Mass/Vol] 0.49 mg/dL Low 0.55-1.02 [facility] Comment on above: Result Comment: The validity of the calculated GFR GFRAA in patients over70 years has not been determined. Clinical correlation isessential. Performed By: #### L 500.2500 ####[facility] [address] [place], [address] ECRCL 196.76 ml/min Normal [facility] Comment on above: Performed By: #### L 500.2500 ####[facility] [address] [place], [address] EST GFR - AA 178 mL/min Normal >60 [facility] Comment on above: Result Comment: Afri can Japanese GFR Calc Performed By: #### L 500.2500 ####[facility] [address] [place], [address] GAP 3 Low 5-15 [facility] Comment on above: Performed By: #### L 500.2500 ####[facility] [address] [place], [address] GFR/1.73 sq M.predicted among non-blacks MDRD (S/P/Bld) [Vol rate/Area] 147 mL/min/{1.73_m2} Normal >60 [facility] Comment on above: Result Comment: Non- GFR Calc Performed By: #### L 500.2500 ####[facility] [address] [place], [address] Glucose [Mass/Vol] 96 mg/dL Normal 74-106 [facility] Comment on above: Performed By: #### L 500.2500 ####[facility] [address] [place], [address] Potassium [Moles/Vol] 4.0 mmol/L Normal 3.5-5.1 [facility] Comment on above: Performed By: #### L 500.2500 ####[facility] [address] [place], [address] Sodium [Moles/Vol] 144 mmol/L Normal 136-145 [facility] Comment on above: Performed By: #### L 500.2500 ####[facility] [address] [place], [address] Urea nitrogen [Mass/Vol] 19 mg/dL High 7-18 [facility] Comment on above: Performed By: #### L 500.2500 ####[facility] [address] [place], [address] Lipid Profileon 04-30-2024 Cholesterol [Mass/Vol] 137 mg/dL Normal 200 [facility] Comment on above: Result Comment: <200 mg/dL Desirable 200-240 mg/dL Borderline >240 mg/dL High Risk Performed By: #### L 500.4100 ####[facility] [address] [place], [address] Cholesterol in HDL [Mass/Vol] 49 mg/dL Normal [facility] Comment on above: Result Comment: The drugs N-Acetylcysteine and Metamizole may falselydepress this assay. Reference Range HDL <40 mg/dL Low HDL Cholesterol HDL >or= 60 mg/dL High HDL Cholesterol Performed By: #### L 500.4100 ####[facility] [address] [place], [address] Cholesterol in LDL [Mass/Vol] 76 mg/dL Normal 0-130 [facility] Comment on above: Performed By: #### L 500.4100 ####[facility] [address] [place], [address] Cholesterol in VLDL [Mass/Vol] 12 mg/dL Normal 5-40 [facility] Comment on above: Performed By: #### L 500.4100 ####[facility] [address] [place], [address] Triglyceride [Mass/Vol] 62 mg/dL Normal [facility] Comment on above: Result Comment: The drugs N-Acetylcysteine and Metamizole may falselydepress this assay.Serum Triglycerides Reference Interval Normal <150 mg/dL Borderline high 150 - 199 mg/dL High 200 - 499 mg/dL Very High > or = 500 mg/dL Performed By: #### L 500.4100 ####[facility] [address] [place], [address] BNP,B-Type NATRIURETIC PEPTI Christa 04-29-2024 Natriuretic peptide B (Bld) [Mass/Vol] 277.4 pg/mL High 0-100 [facility] Comment on above: Performed By: #### L 503.6620 ####[facility] [address] [place], [address] CBC W/Diff, Automatedon 02-2 0-2024 Absolute Lymph 2.29 X10 3/uL Normal 0.83-4.51 [facility] Comment on above: Performed By: #### L 100.0100, L501.9520, L500.4050 ####[facility] [address] [place], [address] Absolute Neut 8.2 X10 3/uL High 2.0-7.7 [facility] Comment on above: Performed By: #### L 100.0100, L501.9520, L500.4050 ####[facility] [address] [place], [address] Basophils/100 WBC (Bld) 0.6 % Normal 0-1 [facility] Comment on above: Performed By: #### L 100.0100, L501.9520, L500.4050 ####[facility] [address] [place], [address] Eosinophils/100 WBC (Bld) 3.6 % Normal 0-5 [facility] Comment on above: Performed By: #### L 100.0100, L501.9520, L500.4050 ####[facility] [address] [place], [address] Erythrocyte distribution width (RBC) [Ratio] 14.8 % High 11.6-14.6 [facility] Comment on above: Performed By: #### L 100.0100, L501.9520, L500.4050 ####[facility] [address] [place], [address] Hematocrit (Bld) [Volume fraction] 34.6 % Low 37-47 [facility] Comment on above: Performed By: #### L 100.0100, L501.9520, L500.4050 ####[facility] [address] [place], [address] Hemoglobin (Bld) [Mass/Vol] 10.5 g/dL Low 12.0-15.0 [facility] Comment on above: Performed By: #### L 100.0100, L501.9520, L500.4050 ####[facility] [address] [place], [address] IG% 0.500 Normal 0.0-0.9 [facility] Comment on above: Result Comment: IG% - Immature Granulocytes (promyelocytes, myelocytes andmetamyelocytes) > 1% indicates that a LEFT SHIFT is Present. Performed By: #### L 100.0100, L501.9520, L500.4050 ####[facility] [address] [place], [address] Lymphocytes/100 WBC (Bld) 18.9 % Low 19-41 [facility] Comment on above: Performed By: #### L 100.0100, L501.9520, L500.4050 ####[facility] [address] [place], [address] MCH (RBC) [Entitic mass] 31.5 pg Normal 27.0-32.0 [facility] Comment on above: Performed By: #### L 100.0100, L501.9520, L500.4050 ####[facility] [address] [place], [address] MCHC (RBC) [Mass/Vol] 30.3 g/dL Low 32-36 [facility] Comment on above: Performed By: #### L 100.0100, L501.9520, L500.4050 ####[facility] [address] [place], [address] MCV (RBC) [Entitic vol] 103.9 fL High 81-99 [facility] Comment on above: Performed By: #### L 100.0100, L501.9520, L500.4050 ####[facility] [address] [place], [address] Monocytes/100 WBC (Bld) 8.7 % Normal 0-10 [facility] Comment on above: Performed By: #### L 100.0100, L501.9520, L500.4050 ####[facility] [address] [place], [address] Neutrophils/100 WBC (Bld) 67.7 % Normal 47-70 [facility] Comment on above: Performed By: #### L 100.0100, L501.9520, L500.4050 ####[facility] [address] [place], [address] Nucleated RBC (Bld) [#/Vol] 0.2 10*3/uL Normal 0-5 [facility] Comment on above: Performed By: #### L 100.0100, L501.9520, L500.4050 ####[facility] [address] [place], [address] Platelet mean volume (Bld) [Entitic vol] 11.0 fL Normal 6.2-12.0 [facility] Comment on above: Performed By: #### L 100.0100, L501.9520, L500.4050 ####[facility] [address] [place], [address] Platelets (Bld) [#/Vol] 165 10*3/uL Normal 150-450 [facility] Comment on above: Performed By: #### L 100.0100, L501.9520, L500.4050 ####[facility] [address] [place], [address] RBC (Bld) [#/Vol] 3.33 10*6/uL Low 4.2-5.4 [facility] Comment on above: Performed By: #### L 100.0100, L501.9520, L500.4050 ####[facility] [address] [place], [address] RDW SD 55.6 fl High 35.1-43.9 [facility] Comment on above: Performed By: #### L 100.0100, L501.9520, L500.4050 ####[facility] [address] [place], [address] WBC (Bld) [#/Vol] 12.1 10*3/uL High 4.4-11.0 [facility] Comment on above: Performed By: #### L 100.0100, L501.9520, L500.4050 ####[facility] [address] [place], [address] CNPNon 04-29-2024 [facility] Telephone (INTMWS) SIA ABDUL ([id number]) 1980 F Date Time Provider Department 04/29/24 MARILEE THAKUR INTWS During your visit today, we recorded the following information about you: Pepper Walsh, RODRÍGUEZ 04/29/2024 12:57 PM Signed Clarence with N ([facility]) calling to update provider that [...] 's mom, patient has been admitted to [facility]. RODRÍGUEZ Blake Chitra, MD 04/29/2024 4:30 PM [...] 1 tablet by mouth once daily. - Asdis-1-PRE-EPA-Fish Oil 1,000 mg (120 mg-180 mg) cap [...] BMI 50.0-5 (more content not included)... Normal [facility] Metabolic Prof ilon 04-29-2024 Albumin [Mass/Vol] 2.7 g/dL Low 3.2-5.0 [facility] Comment on above: Performed By: #### L 100.0100, L501.9520, L500.4050 ####[facility] [address] [place], [address] Albumin/Globulin [Mass ratio] 0.8 {ratio} Low 0.9-2.4 [facility] Comment on above: Performed By: #### L 100.0100, L501.9520, L500.4050 ####[facility] [address] [place], [address] ALK P 88 U/L Normal 45-117 [facility] Comment on above: Performed By: #### L 100.0100, L501.9520, L500.4050 ####[facility] [address] [place], [address] ALT [Catalytic activity/Vol] 24 U/L Normal 13-56 [facility] Comment on above: Performed By: #### L 100.0100, L501.9520, L500.4050 ####[facility] [address] [place], [address] AST [Catalytic activity/Vol] 17 U/L Normal 15-37 [facility] Comment on above: Performed By: #### L 100.0100, L501.9520, L500.4050 ####[facility] [address] [place], [address] Bilirubin [Mass/Vol] 0.40 mg/dL Normal 0.20-1.00 [facility] Comment on above: Result Comment: For patients on eltrombopag therapy, use of Dimension [place] TBIL is not recommended. Performed By: #### L 100.0100, L501.9520, L500.4050 ####[facility] [address] [place], [address] BUN/CRE 49.4 RATIO High 10-20 [facility] Comment on above: Performed By: #### L 100.0100, L501.9520, L500.4050 ####[facility] [address] [place], [address] CA,Total 8.5 mg/dL Normal 8.5-10.1 [facility] Comment on above: Performed By: #### L 100.0100, L501.9520, L500.4050 ####[facility] [address] [place], [address] Chloride [Moles/Vol] 96 mmol/L Low 98-107 [facility] Comment on above: Performed By: #### L 100.0100, L501.9520, L500.4050 ####[facility] [address] [place], [address] CO2 [Moles/Vol] 41.0 mmol/L High 21.0-32.0 [facility] Comment on above: Performed By: #### L 100.0100, L501.9520, L500.4050 ####[facility] [address] [place], [address] Creatinine [Mass/Vol] 0.53 mg/dL Low 0.55-1.02 [facility] Comment on above: Result Comment: The validity of the calculated GFR GFRAA in patients over70 years has not been determined. Clinical correlation isessential. Performed By: #### L 100.0100, L501.9520, L500.4050 ####[facility] [address] [place], [address] ECRCL 183.25 ml/min Normal [facility] Comment on above: Performed By: #### L 100.0100, L501.9520, L500.4050 ####[facility] [address] [place], [address] EST GFR - AA 164 mL/min Normal >60 [facility] Comment on above: Result Comment: Afri can Japanese GFR Calc Performed By: #### L 100.0100, L501.9520, L500.4050 ####[facility] [address] [place], [address] GAP 4 Low 5-15 [facility] Comment on above: Performed By: #### L 100.0100, L501.9520, L500.4050 ####[facility] [address] [place], [address] GFR/1.73 sq M.predicted among non-blacks MDRD (S/P/Bld) [Vol rate/Area] 136 mL/min/{1.73_m2} Normal >60 [facility] Comment on above: Result Comment: Non- GFR Calc Performed By: #### L 100.0100, L501.9520, L500.4050 ####[facility] [address] [place], [address] Globulin (S) [Mass/Vol] 3.5 g/dL Normal 2.2-4.2 [facility] Comment on above: Performed By: #### L 100.0100, L501.9520, L500.4050 ####[facility] [address] [place], [address] Glucose [Mass/Vol] 94 mg/dL Normal 74-106 [facility] Comment on above: Performed By: #### L 100.0100, L501.9520, L500.4050 ####[facility] [address] [place], [address] Potassium [Moles/Vol] 3.4 mmol/L Low 3.5-5.1 [facility] Comment on above: Performed By: #### L 100.0100, L501.9520, L500.4050 ####[facility] [address] [place], [address] Sodium [Moles/Vol] 141 mmol/L Normal 136-145 [facility] Comment on above: Performed By: #### L 100.0100, L501.9520, L500.4050 ####[facility] [address] [place], [address] T PROT 6.2 g/dL Low 6.4-8.2 [facility] Comment on above: Performed By: #### L 100.0100, L501.9520, L500.4050 ####[facility] [address] [place], [address] Urea nitrogen [Mass/Vol] 26 mg/dL High 7-18 [facility] Comment on above: Performed By: #### L 100.0100, L501.9520, L500.4050 ####[facility] [address] [place], [place], [address] L501.4020on 04-29-2024 TROPONIN-I HS 12 pg/mL Normal 3.0-54.0 [facility] Comment on above: Order Comment: 'TROP ' Serial specimen #1, #2 or #3: 3 Result Comment: Plea se Note: New Test Units and Gender Specific Reference Ranges. For more information see Policy Stat Procedure [place] High Sensitivity Troponin (TNIH) and attachments. Performed By: #### L 501.4020 ####[facility] [address] [place], [address] TROPONIN-I HS 14 pg/mL Normal 3.0-54.0 [facility] Comment on above: Order Comment: 'TROP ' Serial specimen #1, #2 or #3: 2 Result Comment: Plea se Note: New Test Units and Gender Specific Reference Ranges. For more information see Policy Stat Procedure [place] High Sensitivity Troponin (TNIH) and attachments. Performed By: #### L 501.4020 ####[facility] [address] [place], [address] TROPONIN-I HS 14 pg/mL Normal 3.0-54.0 [facility] Comment on above: Order Comment: 'TROP ' Serial specimen #1, #2 or #3: 1 Result Comment: Plea se Note: New Test Units and Gender Specific Reference Ranges. For more information see Policy Stat Procedure [place] High Sensitivity Troponin (TNIH) and attachments. Performed By: #### L 501.4020 ####[facility] [address] [place], [address] Magnesiumon 04-29-2024 Magnesium [Mass/Vol] 2.3 mg/dL Normal 1.6-2.6 [facility] Comment on above: Order Comment: Comme nts: may add to ED labs Performed By: #### L 501.5200 ####[facility] [address] [place], [address] Thyroid Stim Hormone (TSH)on 04-29-2024 TSH 3.530 uIU/mL Normal 0.358-3.740 [facility] Comment on above: Performed By: #### L 100.0100, L501.9520, L500.4050 ####[facility] [address] [place], [address] Basic Metabolic Profile (BMP )on 04-28-2024 BUN/CRE 42.6 RATIO High 20 [facility] Comment on above: Order Comment: 'TROP ' Serial specimen #1, #2 or #3: 1 Performed By: #### L 500.2500, L100.0100, L501.4020 ####[facility] [address] [place], [address] CA,Total 9.1 mg/dL Normal 8.5-10.1 [facility] Comment on above: Order Comment: 'TROP ' Serial specimen #1, #2 or #3: 1 Performed By: #### L 500.2500, L100.0100, L501.4020 ####[facility] [address] [place], [address] Chloride [Moles/Vol] 95 mmol/L Low 98-107 [facility] Comment on above: Order Comment: 'TROP ' Serial specimen #1, #2 or #3: 1 Performed By: #### L 500.2500, L100.0100, L501.4020 ####[facility] [address] [place], [address] CO2 [Moles/Vol] 40.0 mmol/L High 21.0-32.0 [facility] Comment on above: Order Comment: 'TROP ' Serial specimen #1, #2 or #3: 1 Performed By: #### L 500.2500, L100.0100, L501.4020 ####[facility] [address] [place], [address] Creatinine [Mass/Vol] 0.73 mg/dL Normal 0.55-1.02 [facility] Comment on above: Order Comment: 'TROP ' Serial specimen #1, #2 or #3: 1 Result Comment: The validity of the calculated GFR GFRAA in patients over70 years has not been determined. Clinical correlation isessential. Performed By: #### L 500.2500, L100.0100, L501.4020 ####[facility] [address] [place], [address] ECRCL 133.05 ml/min Normal [facility] Comment on above: Order Comment: 'TROP ' Serial specimen #1, #2 or #3: 1 Performed By: #### L 500.2500, L100.0100, L501.4020 ####[facility] [address] [facility] [address] EST GFR - AA 113 mL/min Normal >60 [facility] Comment on above: Order Comment: 'TROP ' Serial specimen #1, #2 or #3: 1 Result Comment: Afri can Japanese GFR Calc Performed By: #### L 500.2500, L100.0100, L501.4020 ####[facility] [address] [facility] [address] GAP 5 Normal 5-15 [facility] Comment on above: Order Comment: 'TROP ' Serial specimen #1, #2 or #3: 1 Performed By: #### L 500.2500, L100.0100, L501.4020 ####[facility] [address] [facility] [address] GFR/1.73 sq M.predicted among non-blacks MDRD (S/P/Bld) [Vol rate/Area] 93 mL/min/{1.73_m2} Normal >60 [facility] Comment on above: Order Comment: 'TROP ' Serial specimen #1, #2 or #3: 1 Result Comment: Non- GFR Calc Performed By: #### L 500.2500, L100.0100, L501.4020 ####[facility] [address] [place], [address] Glucose [Mass/Vol] 76 mg/dL Normal 74-106 [facility] Comment on above: Order Comment: 'TROP ' Serial specimen #1, #2 or #3: 1 Performed By: #### L 500.2500, L100.0100, L501.4020 ####[facility] [address] [place], [address] Potassium [Moles/Vol] 4.5 mmol/L Normal 3.5-5.1 [facility] Comment on above: Order Comment: 'TROP ' Serial specimen #1, #2 or #3: 1 Result Comment: Slig ht Hemolysis, Result may be falsely increased. Performed By: #### L 500.2500, L100.0100, L501.4020 ####[facility] [address] [place], [address] Sodium [Moles/Vol] 141 mmol/L Normal 136-145 [facility] Comment on above: Order Comment: 'TROP ' Serial specimen #1, #2 or #3: 1 Performed By: #### L 500.2500, L100.0100, L501.4020 ####[facility] [address] [place], [address] Urea nitrogen [Mass/Vol] 31 mg/dL High 7-18 [facility] Comment on above: Order Comment: 'TROP ' Serial specimen #1, #2 or #3: 1 Performed By: #### L 500.2500, L100.0100, L501.4020 ####[facility] [address] [place], [address] CBC W/Diff, Automatedon 04-10 Absolute Lymph 2.13 X10 3/uL Normal 0.83-4.51 [facility] Comment on above: Performed By: #### L 500.2500, L100.0100, L501.4020 ####[facility] [address] [place], [address] Absolute Neut 9.9 X10 3/uL High 2.0-7.7 [facility] Comment on above: Performed By: #### L 500.2500, L100.0100, L501.4020 ####[facility] [address] [place], [address] Basophils/100 WBC (Bld) 0.7 % Normal 0-1 [facility] Comment on above: Performed By: #### L 500.2500, L100.0100, L501.4020 ####[facility] [address] [place], [address] Eosinophils/100 WBC (Bld) 2.0 % Normal 0-5 [facility] Comment on above: Performed By: #### L 500.2500, L100.0100, L501.4020 ####[facility] [address] [place], [address] Erythrocyte distribution width (RBC) [Ratio] 14.9 % High 11.6-14.6 [facility] Comment on above: Performed By: #### L 500.2500, L100.0100, L501.4020 ####[facility] [address] [place], [address] Hematocrit (Bld) [Volume fraction] 39.0 % Normal 37-47 [facility] Comment on above: Performed By: #### L 500.2500, L100.0100, L501.4020 ####[facility] [address] [place], [address] Hemoglobin (Bld) [Mass/Vol] 12.1 g/dL Normal 12.0-15.0 [facility] Comment on above: Performed By: #### L 500.2500, L100.0100, L501.4020 ####[facility] [address] [place], [address] IG% 0.600 Normal 0.0-0.9 [facility] Comment on above: Result Comment: IG% - Immature Granulocytes (promyelocytes, myelocytes andmetamyelocytes) > 1% indicates that a LEFT SHIFT is Present. Performed By: #### L 500.2500, L100.0100, L501.4020 ####[facility] [address] [place], [address] Lymphocytes/100 WBC (Bld) 15.6 % Low 19-41 [facility] Comment on above: Performed By: #### L 500.2500, L100.0100, L501.4020 ####[facility] [address] [place], [address] MCH (RBC) [Entitic mass] 31.7 pg Normal 27.0-32.0 [facility] Comment on above: Performed By: #### L 500.2500, L100.0100, L501.4020 ####[facility] [address] [place], [address] MCHC (RBC) [Mass/Vol] 31.0 g/dL Low 32-36 [facility] Comment on above: Performed By: #### L 500.2500, L100.0100, L501.4020 ####[facility] [address] [place], [address] MCV (RBC) [Entitic vol] 102.1 fL High 81-99 [facility] Comment on above: Performed By: #### L 500.2500, L100.0100, L501.4020 ####[facility] [address] [place], [address] Monocytes/100 WBC (Bld) 9.0 % Normal 0-10 [facility] Comment on above: Performed By: #### L 500.2500, L100.0100, L501.4020 ####[facility] [address] [place], [address] Neutrophils/100 WBC (Bld) 72.1 % High 47-70 [facility] Comment on above: Performed By: #### L 500.2500, L100.0100, L501.4020 ####[facility] [address] [place], [address] Nucleated RBC (Bld) [#/Vol] 0.5 10*3/uL Normal 0-5 [facility] Comment on above: Performed By: #### L 500.2500, L100.0100, L501.4020 ####[facility] [address] [place], [address] Platelet mean volume (Bld) [Entitic vol] 12.1 fL High 6.2-12.0 [facility] Comment on above: Performed By: #### L 500.2500, L100.0100, L501.4020 ####[facility] [address] [place], [address] Platelets (Bld) [#/Vol] 185 10*3/uL Normal 150-450 [facility] Comment on above: Performed By: #### L 500.2500, L100.0100, L501.4020 ####[facility] [address] [place], [address] RBC (Bld) [#/Vol] 3.82 10*6/uL Low 4.2-5.4 [facility] Comment on above: Performed By: #### L 500.2500, L100.0100, L501.4020 ####[facility] [address] [place], [address] RDW SD 54.7 fl High 35.1-43.9 [facility] Comment on above: Performed By: #### L 500.2500, L100.0100, L501.4020 ####[facility] [address] [place], [address] WBC (Bld) [#/Vol] 13.7 10*3/uL High 4.4-11.0 [facility] Comment on above: Performed By: #### L 500.2500, L100.0100, L501.4020 ####[facility] [address] [place], [address] Chest PA and Lateralon 04-28 Chest PA and Lateral Normal [facility] Emergency Department Summary on 04-28-2024 Emergency Department Summary Normal [facility] H AND P Exam - Hospitaliston 04-28-2024 H&P Exam - Hospitalist Normal [facility] L501.4020on 04-28-2024 TROPONIN-I HS 28 pg/mL Normal 3.0-54.0 [facility] Comment on above: Order Comment: 'TROP ' Serial specimen #1, #2 or #3: 1 Result Comment: Plea se Note: New Test Units and Gender Specific Reference Ranges. For more information see Policy Stat Procedure [place] High Sensitivity Troponin (TNIH) and attachments. Performed By: #### L 500.2500, L100.0100, L501.4020 ####[facility] [address] [place], [address] Urinalysis, Completeon 04-28 BACTERIA 2+ /hpf Normal None Seen [facility] Comment on above: Order Comment: CLEAN CATCH Performed By: #### L 400.0001 ####[facility] [address] [place], [address] CAST,HYALINE 0-5 SEEN Normal 0-5 [facility] Comment on above: Order Comment: CLEAN CATCH Performed By: #### L 400.0001 ####[facility] [address] [place], [address] EPI,SQUAMOUS 5-10 SEEN Normal 5-10 [facility] Comment on above: Order Comment: CLEAN CATCH Performed By: #### L 400.0001 ####[facility] [address] [place], [address] Mucus Ql (Urine sed) 1+ /hpf Normal [facility] Comment on above: Order Comment: CLEAN CATCH Performed By: #### L 400.0001 ####[facility] [address] [place], [place], [id number] RBC 5-10 SEEN Normal 0-5 [facility] Comment on above: Order Comment: CLEAN CATCH Performed By: #### L 400.0001 ####[facility] [address] [place], [place], [address] WBC 5-10 SEEN Normal 0-5 [facility] Comment on above: Order Comment: CLEAN CATCH Performed By: #### L 400.0001 ####[facility] [address] [place], [place], [address] [facility] Telephone (INTMWS) SIA ABDUL ([id number]) 1980 F Date Time Provider Department 04/27/24 MARILEE THAKUR INTWS During your visit today, we recorded the following information about you: Rah Turner, RN 04/27/2024 3:16 PM Signed Enrique- [facility]- called to give pcp update [...] if it had fluid in it. The custodial called EMS today, they got 96% POX with patient on 4LO2, but because patient was acting off and confused EMS wanted to take patient to ER but patient refused. 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 Marilee Thakur MD 04/27/2024 5:25 PM [...] 1 tablet by mouth once daily. - Pjmcr-0-NOT-EPA-Fish Oil 1,000 mg (120 mg-180 mg) cap [...] INSUFFICIENCY [I87.2] more content not included)... Normal [facility] US SOFT TISSUE ABDOMENon US SOFT TISSUE [...] size of the collections, or percutaneous aspiration. Body Finisher: PSCB Transcribe Date/Time: Apr 16 2024 1:34P Dictated by : ESTHER ARANGO MD This examination was interpreted and the report reviewed and electronically signed by: ESTHER ARANGO MD on Apr 16 2024 1:39PM EST [id number] Normal [facility] CNPNon 04-12-2024 CNPN Telephone (INTMWS) SIA ABDUL ([id number]) 1980 F Date Time Provider Department 04/12/24 MARILEE THAKUR During your visit today, we recorded the following information about you: Rah Turner RN 04/12/2024 12:48 PM Signed Easton asking pcp to discontinue the Dulera since it is no longer covered by insurance and the Breo Ellipta was sent in it's place since insurance does cover Breo. Easton is going to go ahead and discontinue [...] 1 tablet by mouth once daily. 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 Normal [facility] Tal 04-09-2024 LOU Telephone (INTMWS) SIA ABDUL ([id number]) 1980 F Date Time Provider Department 04/09/24 MARILEE THKAUR During your visit today, we recorded the [...] PA for Breo is approved Authorization number: [id number] Authorized from April 12, 2024 to April [...] 1 tablet by mouth once daily. 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 Normal [facility] Tal 04-08-2024 [facility] Telephone (INTMWS) SIA ABDUL ([id number]) 1980 F Date Time Provider Department 04/08/24 MARILEE THAKUR INTWS During your visit today, we recorded the following information about you: Pamela Singh LPN 04/08/2024 1:51 PM Signed Leia with [facility], PT called to let you [...] OCCA - Fully Assessed Reason for Visit: [facility] [Other] Prescriptions as of 04/08/2024 [...] 1 tablet by mouth once daily. - Gfxgt-9-HOE-EPA-Fish Oil 1,000 mg (120 mg-180 mg) cap [...] BMI 45. (more content not included)... Normal [facility] [facility] CNOVon 04-06-2024 CNOV Office Visit (VASSWS ) SIA ABDUL ([id number]) 1980 F Date Time Provider Department 04/06/24 10:00 AM HILDA JEONG VASSWS During your visit today, we recorded the following information about you: Pulse Blood pressure 76/minute 121/83 Hilda Jeong DO 04/06/2024 12:56 PM Signed [facility] [place] DEPARTMENT OF VASCULAR SURGERY OUTPATIENT VISIT DATE April 06, 2024 OUTPATIENT VISIT TYPE CONSULTATION SERVICE DATE: 04/06/2024 SERVICE TIME: 9:43 AM PRIMARY CARE PHYSICIAN: Marilee Thakur MD REFERRING PROVIDER: Marilee Thakur [address] [facility] [address] Consult requested for an opinion regarding the [...] Take 1 tablet by mouth once daily. Ulion-4-MBA-EPA-Fish Oil 1,000 mg (120 mg-180 mg) cap [...] Gauze Bandage (more content not included)... Normal [facility] Tal 04-06-2024 CNPN Telephone (INTMWS) SIA ABDUL ([id number]) 1980 F Date Time Provider Department 04/06/24 MARILEE THAKUR INTMWS During your visit today, we recorded the following information about you: Eulalia Laureano RN 04/06/2024 11:09 AM Signed Enrique Mckenna with [facility] calls with update. Enrique reports [...] which isn't typical for patient. Enrique contacting tutorial laboratory supervisor as well. RODRÍGUEZ Braden Chitra, MD 04/07/2024 1:05 PM Signed Ok I see that he is taking the demadex, so should continue it , could take an extra if needed Marilee Lassiter MD, Mary, LPN 04/08/2024 9:33 AM Signed Called and spoke to Clarence the nurse caring for patient, Clarence asking, please send demadex order to [facility] pharmacy with new directions. Dosage change Thank you. JORDAN Monroe Chitra, MD 04/08/2024 1:47 PM Addendum Can you confirm how much of demadex she is taking right now? Marilee Lassiter MD, Mary, LPN 04/08/2024 4:27 PM Signed When I spoke to nurse Clarence stated she is taking 40mg 2 times a day currently. Lacie Reyes LPN April 08, 2024 4:26 PM Marilee Thakur MD 04/09/2024 12:30 PM Signed More demadex was sent to the pharmacy. Marilee Lassiter MD, Amanda, RODRÍGUEZ 04/09/2024 1:03 PM Signed Shobha Dallas with [facility] called and is notified of providers message and instructions. She voices understanding. She asked if we could fax the new prescription to the nurse Rafia at fax # [phone]. Rx faxed. Teresa Ferrera RN Allergies As [...] 1 tablet by mouth once daily. - Qbpoo-2-VYH-EPA-Fish Oil 1,000 mg (120 mg-180 mg) cap [...] once jaimie (more content not included)... Normal [facility] Tal 04-02-2024 OBEDN Telephone (INTMWS) SIA ABDUL ([id number]) 1980 F Date Time Provider Department 1/24/25 MARILEE THAKUR During your visit today, we recorded the following information about you: Pepper Walsh RN 04/02/2024 8:32 AM Addendum Clarence, a nurse with [facility] is calling to ask if provider will approve re certification for intermediate, PT and OT services for patient. Clarence would like a call back with provider's approval, . RODRÍGUEZ Blake Joy, APRN.CATERERS HELPER 04/02/2024 9:13 AM Signed Agree with need for these services and agree to follow Mika Kaplan APRN.Candelaria Perez LPN 04/02/2024 9:37 AM Signed Phoned Clarence and went over notes below from Mika Kaplan SESSIONS CLERK with understanding. Allergies As of Date: 04/02/2024 [...] 1 tablet by mouth once daily. - Mkqjb-5-UFJ-EPA-Fish Oil 1,000 mg (120 mg-180 mg) cap [...] 45.0-49.9, adul (more content not included)... Normal [facility] Bacteria Ur Culton 5 Bacteria identified Cx [...] technique or straight catheterization for???urine???collecti on. Normal [facility] Comment on above: Performed By: #### 6 30-4 ####[facility] [id number] [place] [address] [place] CBC panel Auto (Bld)on 04-01 Erythrocyte distribution width (RBC) [Ratio] 14.0 % Normal 11.5-15.0 [facility] Comment on above: Order Comment: Speci men Type: BLOOD SPECIMEN Ordering Facility: [facility] Address: [address] [place] [address] Performed By: #### 5 8410-2 #### [facility] CLIA [id number] [address] [place] [address] [place] Hematocrit (Bld) [Volume fraction] 41.0 % Normal 36.0-46.0 [facility] Comment on above: Order Comment: Speci men Type: BLOOD SPECIMEN Ordering Facility: [facility] Address: [address] [place] [address] Performed By: #### 5 8410-2 #### [facility] CLIA [id number] [address] [place] [address] [place] Hemoglobin (Bld) [Mass/Vol] 12.1 g/dL Normal 11.5-15.5 [facility] Comment on above: Order Comment: Speci men Type: BLOOD SPECIMEN Ordering Facility: [facility] Address: [address] [place] [address] Performed By: #### 5 8410-2 #### [facility] CLIA [id number] [address] [place] [address] [place] MCH (RBC) [Entitic mass] 31.3 pg Normal 26.0-34.0 [facility] Comment on above: Order Comment: Speci men Type: BLOOD SPECIMEN Ordering Facility: [facility] Address: [address] [place] [address] Performed By: #### 5 8410-2 #### [facility] CLIA [id number] [address] [place] [address] [place] MCHC (RBC) [Mass/Vol] 29.5 g/dL Low 30.5-36.0 [facility] Comment on above: Order Comment: Speci men Type: BLOOD SPECIMEN Ordering Facility: [facility] Address: [address] [place] [address] Performed By: #### 5 8410-2 #### [facility] CLIA [id number] [address] [place] [address] [place] MCV (RBC) [Entitic vol] 106.2 fL High 80.0-100.0 [facility] Comment on above: Order Comment: Speci men Type: BLOOD SPECIMEN Ordering Facility: [facility] Address: [address] [place] [address] Performed By: #### 5 8410-2 #### [facility] CLIA [id number] [address] [place] [address] [place] Nucleated RBC (Bld) [#/Vol] 10*3/uL Normal <0.01 [facility] Comment on above: Order Comment: Speci men Type: BLOOD SPECIMEN Ordering Facility: [facility] Address: [address] [place] [address] Performed By: #### 5 8410-2 #### [facility] CLIA [id number] [address] [place] [address] [place] Platelet mean volume (Bld) [Entitic vol] 11.9 fL Normal 9.0-12.7 [facility] Comment on above: Order Comment: Speci men Type: BLOOD SPECIMEN Ordering Facility: [facility] Address: [address] [place] [address] Performed By: #### 5 8410-2 #### [facility] CLIA [id number] [address] [place] [address] [place] Platelets (Bld) [#/Vol] 240 10*3/uL Normal 150-400 [facility] Comment on above: Order Comment: Speci men Type: BLOOD SPECIMEN Ordering Facility: [facility] Address: [address] [place] [address] Performed By: #### 5 8410-2 #### [facility] CLIA [id number] [address] [place] [address] [place] RBC (Bld) [#/Vol] 3.86 10*6/uL Low 3.90-5.20 [facility] Comment on above: Order Comment: Speci men Type: BLOOD SPECIMEN Ordering Facility: [facility] Address: [address] [place] [address] Performed By: #### 5 8410-2 #### [facility] CLIA [id number] [address] [place] [address] [place] WBC (Bld) [#/Vol] 10.72 10*3/uL Normal 3.70-11.00 [facility] Comment on above: Order Comment: Speci men Type: BLOOD SPECIMEN Ordering Facility: [facility] Address: [address] [place] [address] Performed By: #### 5 8410-2 #### [facility] CLIA [id number] [address] [place] [address] [place] CNOVon 04-01-2024 CNOV Office Visit (INTMWS ) SIA ABDUL ([id number]) 1980 F Date Time Provider Department 04/01/24 [...] Take 1 tablet by mouth once daily. Wrpoz-9-YZB-EPA-Fish Oil 1,000 mg (120 mg-180 mg) cap [...] inhaler Inhal (more content not included)... Normal [facility] TSH SerPl-aCncon 04-01-2024 TSH Qn 1.750 m[IU]/L Normal 0.270-4.200 [facility] Comment on above: Order Comment: Speci men Type: BLOOD SPECIMEN Ordering Facility: [facility] Address: [address] [place] [address] Result Comment: If t he patient is , TSH reference range varies by gestational period: First Trimester (weeks 9-12): 0.180-2.990 mIU/L Second Trimester: 0.110-3.980 mIU/L Third Trimester: 0.480-4.710 mIU/L Barney Campbell et al. A Practical Approach for the Verifications and Determination of Site- and Trimester-Specific Reference Intervals for Thyroid Function tests in . Thyroid, 2019:29:3:412-420. Marbin Stein, et al. 2017 Guidelines of the [place] Thyroid Association for the Diagnosis and Management of Thyroid Disease during and the . Thyroid, 2017:27:3:315-389. Performed By: #### 3 016-3 #### [facility] CLIA [id number] [address] [place] [address] [place] UA DIP, URINE (POC)on 2024 BILIRUBIN UA (POCT) Negative Negative [facility] CLARITY UA (POCT) Clear [facility] COLOR UA (POCT) Yellow [facility] GLUCOSE UA (POCT) Negative Negative mg/dL [facility] Hemoglobin Ql (U) Large Abnormal Negative [facility] Interpretation and review of laboratory results Abnormal [facility] KETONE UA (POCT) Negative Negative mg/dL [facility] LEUKOCYTES UA (POCT) Negative Negative [facility] NITRITE UA (POCT) Negative Negative [facility] PH UA (POCT) 7.5 4.5 - 8.0 [facility] Protein Ql (U) Negative Negative mg/dL [facility] SPECIFIC GRAVITY UA (POCT) 1.015 1.005 - 1.030 [facility] UROBILINOGEN UA (POCT) 0.2 Normal E.U./dL [facility] Location:[facility], [address] [place] [address], [place], [place], [id number] [place] [address] POINT OF CARE [facility] Urinalysis complete panel (U )on 04-01-2024 Bacteria LM.HPF (Urine sed) [#/Area] Negative Normal Negative [facility] Comment on above: Order Comment: Speci men Type: URINE SPECIMEN Ordering Facility: [facility] Address: [address] [place] [address] Performed By: #### 2 4356-8 #### [facility] CLIA [id number] [address] [place] [address] [place] Bilirubin Ql (U) Negative Normal Negative [facility] Comment on above: Order Comment: Speci men Type: URINE SPECIMEN Ordering Facility: [facility] Address: [address] [place] [address] Performed By: #### 2 4356-8 #### [facility] CLIA [id number] [address] [place] [address] [place] Clarity (Unsp spec) Clear Normal Clear [facility] Comment on above: Order Comment: Speci men Type: URINE SPECIMEN Ordering Facility: [facility] Address: [address] [place] [address] Performed By: #### 2 4356-8 #### [facility] CLIA [id number] [address] [place] [address] [place] Color (U) Yellow Normal Yellow [facility] Comment on above: Order Comment: Speci men Type: URINE SPECIMEN Ordering Facility: [facility] Address: [address] [place] [address] Performed By: #### 2 4356-8 #### [facility] CLIA [id number] [address] [place] [address] [place] Epithelial cells LM.HPF (Urine sed) [#/Area] None Seen Normal [facility] Comment on above: Order Comment: Speci men Type: URINE SPECIMEN Ordering Facility: [facility] Address: [address] [place] [address] Performed By: #### 2 4356-8 #### [facility] CLIA [id number] [address] [place] [address] [place] Glucose Test strip (U) [Mass/Vol] Negative Normal Negative [facility] Comment on above: Order Comment: Speci men Type: URINE SPECIMEN Ordering Facility: [facility] Address: [address] [place] [address] Performed By: #### 2 4356-8 #### [facility] CLIA [id number] [address] [place] [address] [place] Hemoglobin Ql (U) 2+ Abnormal Negative [facility] Comment on above: Order Comment: Speci men Type: URINE SPECIMEN Ordering Facility: [facility] Address: [address] [place] [address] Performed By: #### 2 4356-8 #### [facility] CLIA [id number] [address] [place] [address] [place] Hyaline casts (Urine sed) [#/Area] 0 /[LPF] Normal 0 /LPF [facility] Comment on above: Order Comment: Speci men Type: URINE SPECIMEN Ordering Facility: [facility] Address: [address] [place] [address] Performed By: #### 2 4356-8 #### [facility] CLIA [id number] [address] [place] [address] [place] Ketones Ql (U) Negative Normal Negative [facility] Comment on above: Order Comment: Speci men Type: URINE SPECIMEN Ordering Facility: [facility] Address: [address] [place] [address] Performed By: #### 2 4356-8 #### [facility] CLIA [id number] [address] [place] [address] [place] Leukocyte esterase Test strip Ql (U) Negative Normal Negative [facility] Comment on above: Order Comment: Speci men Type: URINE SPECIMEN Ordering Facility: [facility] Address: [address] [place] [address] Performed By: #### 2 4356-8 #### [facility] CLIA [id number] [address] [place] [address] [place] Nitrite Ql (U) Negative Normal Negative [facility] Comment on above: Order Comment: Speci men Type: URINE SPECIMEN Ordering Facility: [facility] Address: [address] [place] [address] Performed By: #### 2 4356-8 #### [facility] CLIA [id number] [address] [place] [address] [place] pH (U) 8.0 [pH] Normal <8.5 [facility] Comment on above: Order Comment: Speci men Type: URINE SPECIMEN Ordering Facility: [facility] Address: [address] [place] [address] Performed By: #### 2 4356-8 #### [facility] CLIA [id number] [address] [place] [address] [place] Protein (U) [Mass/Vol] Negative Normal Negative [facility] Comment on above: Order Comment: Speci men Type: URINE SPECIMEN Ordering Facility: [facility] Address: [address] [place] [address] Performed By: #### 2 4356-8 #### [facility] CLIA [id number] [address] [place] [address] [place] RBC LM.HPF (Urine sed) [#/Area] 11-20 /HPF Abnormal 0-2 /HPF [facility] Comment on above: Order Comment: Speci men Type: URINE SPECIMEN Ordering Facility: [facility] Address: [address] [place] [address] Performed By: #### 2 4356-8 #### [facility] CLIA [id number] [address] [place] [address] [place] Specific gravity (U) [Rel density] 1.009 Normal 1.005-1.030 [facility] Comment on above: Order Comment: Speci men Type: URINE SPECIMEN Ordering Facility: [facility] Address: [address] [place] [address] Performed By: #### 2 4356-8 #### [facility] CLIA [id number] [address] [place] [address] [place] Urobilinogen Ql (U) 0.2 EU/dL Normal 0.2-1.0 EU/dL [facility] Comment on above: Order Comment: Speci men Type: URINE SPECIMEN Ordering Facility: [facility] Address: [address] [place] [address] Performed By: #### 2 4356-8 #### [facility] [place] [id number] [address] [place] [address] [place] WBC LM.HPF (Urine sed) [#/Area] 0-5 /HPF Normal 0-5 /HPF [facility] Comment on above: Order Comment: Speci men Type: URINE SPECIMEN Ordering Facility: [facility] Address: [address] [place] [address] Performed By: #### 2 4356-8 #### [facility] IA [id number] [address] [place] [address] [place] Tal 03-29-2024 LOU Telephone (GRICELWS) SIA ABDUL ([id number]) 1980 F Date Time Provider Department 03/29/24 MARILEE THAKUR During your visit today, we recorded the following information about you: Teresa Ferrera, RN 03/29/2024 4:26 PM Signed Yazan with [facility] called in and reports [facility] reached out to them with a referral. They states they have been trying to get a hold of the Pt, but haven't been able to. She states it says she lives a t a Nursing Home, but no the name of the intermediate. I have her the names and number we had to get in contact with the Pt. I told her we had Shobha Dallas as a contact at the intermediate [phone], which was the same phone # we had for the Pts home and mobile phone. Then we had Anali Gibson as her resident care spec at [phone]. She states she had tried calling the [...] Fully Assessed Reason for Visit: Patient Question [0817] Prescriptions as of 03/29/2024 - IRAIDA 0.35 [...] 1 tablet by mouth once daily. - Vvcji-0-CQX-EPA-Fish Oil 1,000 mg (120 mg-180 mg) cap [...] (chronic) (peripheral (more content not included)... [facility] Tele[facility] (INTMWS) SIA ABDUL ([id number]) 1980 F Date Time Provider Department 03/24/24 MARILEE THAKUR INTMWS During your visit today, we recorded the following information about you: Pamela Singh LPN 03/24/2024 11:44 AM Signed Shobha with [facility] called to let you know af ax was sent approx around 11 am today 03-24-24. In this fax they are exact specific that need to be on Dr. Thakur last note and they need faxed back to them as soon as possible. This is regarding Lymphedema Leg Compressions Pump. FAX: [phone] JORDAN Boston Rachel L, MA 03/24/2024 12:28 PM Signed Faxed as requested. COMFORT Willingham Mary, LPN 03/25/2024 2:34 PM Signed Refaxed last office note per [facility] service Attn Rafia Gomez Lacie Reyes LPN [...] 1 tablet by mouth once daily. - Yzlhh-1-LOY-EPA-Fish Oil 1,000 mg (120 mg-180 mg) cap [...] 12/14/2014 B (more content not included)... Normal [facility] Renal function 2000 panelon 03-24-2024 Albumin BCP dye [Mass/Vol] 4.2 g/dL 3.4 - 5.0 g/dL [facility] Anion gap [Moles/Vol] 17 mmol/L 10 - 2 0 mmol/L [facility] Calcium [Mass/Vol] 9.3 mg/dL 8.6 - 10. 6 mg/dL [facility] Chloride [Moles/Vol] 87 mmol/L Low 98 - 10 7 mmol/L [facility] CO2 [Moles/Vol] 39 mmol/L High 21 - 32 mmol/L [facility] Creatinine [Mass/Vol] 0.55 mg/dL 0.50 - 1.05 mg/dL [facility] eGFR - PINF [facility] Comment on above: Calculations of roby mated GFR are performed using the 2020 CKD-EPI Study Refit equation without the race variable for the IDMS-Traceable creatinine methods. https://jasn.asnjournals.org/content/early/ASN.853916 0986 Glucose [Mass/Vol] 79 mg/dL 74 - 99 mg/dL [facility] Interpretation and review of laboratory results Abnormal [facility] Phosphate [Mass/Vol] 3.4 mg/dL 2.5 - 4 .9 mg/dL [facility] Comment on above: The performance jeffrey acteristics of phosphorus testing in heparinized plasma have been validated by the individual laboratory site where testing is performed. Testing on heparinized plasma is not approved by the FDA; however, such approval is not necessary. Potassium [Moles/Vol] 3.8 mmol/L 3.5 - 5.3 mmol/L [facility] Sodium [Moles/Vol] 139 mmol/L 136 - 145 mmol/L [facility] Urea nitrogen [Mass/Vol] 14 mg/dL 6 - 23 mg/dL [facility] Renal function 2000 panelon 03-23-2024 Albumin BCP dye [Mass/Vol] 4.2 g/dL Normal 3.4-5.0 [facility] Comment on above: Performed By: #### 2 4362-6 #### ENEDINA Campbell ([id number]) [facility] ([facility]) [id number] [place] [address] Anion gap [Moles/Vol] 17 mmol/L Normal 10-20 [facility] Comment on above: Performed By: #### 2 4362-6 #### ENEDINA Campbell ([id number]) [facility] ([facility]) [address] [place] [address] Calcium [Mass/Vol] 9.3 mg/dL Normal 8.6-10.6 [facility] Comment on above: Performed By: #### 2 4362-6 #### ENEDINA Campbell ([id number]) [facility] ([facility]) [address] [place] [address] Chloride [Moles/Vol] 87 mmol/L Low 98-107 [facility] Comment on above: Performed By: #### 2 4362-6 #### ENEDINA Campbell ([id number]) [facility] ([facility]) [address] [place] [address] CO2 [Moles/Vol] 39 mmol/L High 21-32 [facility] Comment on above: Performed By: #### 2 4362-6 #### ENEDINA Campbell ([id number]) [facility] ([facility]) [address] [place] [address] Creatinine [Mass/Vol] 0.55 mg/dL Normal 0.50-1.05 [facility] Comment on above: Performed By: #### 2 4362-6 #### ENEDINA Campbell ([id number]) [facility] ([facility]) [address] [place] [address] GFR/1.73 sq M.predicted MDRD (S/P/Bld) [Vol rate/Area] mL/min/{1.73_m2} Normal >60 [facility] Comment on above: Result Comment: Calc ulations of estimated GFR are performed using the 2020 CKD-EPI Study Refit equation without the race variable for the IDMS-Traceable creatinine methods. https://jasn.asnjournals.org/content//ASN.603232 7733 Performed By: #### 2 4362-6 #### ENEDINA Campbell ([id number]) [facility] ([facility]) [address] [place] [address] Glucose [Mass/Vol] 79 mg/dL Normal 74-99 [facility] Comment on above: Performed By: #### 2 4362-6 #### ENEDINA Campbell ([id number]) [facility] ([facility]) [address] [place] [address] Phosphate [Mass/Vol] 3.4 mg/dL Normal 2.5-4.9 [facility] Comment on above: Result Comment: The performance characteristics of phosphorus testing in heparinized plasma have been validated by the individual laboratory site where testing is performed. Testing on heparinized plasma is not approved by the FDA; however, such approval is not necessary. Performed By: #### 2 4362-6 #### ENEDINA Campbell ([id number]) [facility] ([facility]) [address] [place] [address] Potassium [Moles/Vol] 3.8 mmol/L Normal 3.5-5.3 [facility] Comment on above: Performed By: #### 2 4362-6 #### ENEDINA Campbell ([id number]) [facility] ([facility]) [address] [place] [address] Sodium [Moles/Vol] 139 mmol/L Normal 136-145 [facility] Comment on above: Performed By: #### 2 4362-6 #### ENEDINA Campbell ([id number]) [facility] ([facility]) [address] [place] [address] Urea nitrogen [Mass/Vol] 14 mg/dL Normal 6-23 [facility] Comment on above: Performed By: #### 2 4362-6 #### ENEDINA Campbell ([id number]) [facility] ([facility]) [address] [place] [id number] Tal 03-16-2024 CNPN Telephone (INTWS) SIA ABDUL ([id number]) 1980 F Date Time Provider Department 03/16/24 [...] can start taking medication. Clarence also notified tutorial laboratory supervisor regarding weight gain. Patient has a vaginal prolapse. This was noted last time patient was in hospital. Mother had reported that patient has had prolapse for awhile. Staff has noticed that when patient's wipes there is a little blood on the toilet paper. Clarence asking if this can be address at patient's appointment on 03/22/2024. Please review and advise, RODRÍGUEZ Canres Joy, APRN.CATERERS HELPER 03/17/2024 7:20 AM Signed Will address at upcoming appointment. Has patient received her lasix? Is she having any symptoms? Thank you Mika Kaplan APRN.CATERERS HELPER María Avila MA 03/17/2024 9:44 AM Signed [...] 1 tablet by mouth once daily. - Xcced-5-KPI-EPA-Fish Oil 1,000 mg (120 mg-180 mg) cap [...] complication [* (more content not included)... Normal [facility] CNOVon 03-12-2024 CNOV Office Visit (INTMWS ) SIA ABDUL ([id number]) 1980 F Date Time Provider Department 03/12/24 9:40 AM RAJESH CORONA INTMWS During your visit today, we recorded the following information about you: Pulse Blood pressure Weight 74/minute 116/85 136.7 kg Rajesh Corona MD 03/13/2024 11:03 PM Signed This note was created using RingTuriter. Subjective Patient presents with: Hospital F/U: [facility] 02/28/24 for pulmonary edema and severe pain [...] Take 1 tablet by mouth once daily. Vsuos-0-LTG-EPA-Fish Oil 1,000 mg (120 mg-180 mg) cap [...] of breath. (more content not included)... Normal [facility] Tal 03-12-2024 [facility] Telephone (INTMWS) SIA ABDUL ([id number]) 1980 F Date Time Provider Department 03/12/24 [...] needed at this time. Eulalia Laureano RN Allergies As of Date: 03/12/2024 [...] 1 tablet by mouth once daily. - Uaqrg-9-XYA-EPA-Fish Oil 1,000 mg (120 mg-180 mg) cap [...] [E03.9] 12/14/2014 (more content not included)... Normal [facility] Tal [facility] SIA ABDUL ([id number]) 1980 F Date Time Provider Department 03/11/24 MIKA KAPLAN During your visit today, we recorded the following information about you: Candelaria Ball LPN 03/11/2024 9:45 AM Signed Shobha from [facility] calling patient said Bumex has been giving her a headache. She was taken off the generic lasix and put on bumex 1 mg one tablet twice daily when she was in [facility]. She was discharged on 03/01/2024, patient has gained 13 pounds since that date. She has refused to take Bumex last night and this morning dose. Patient uses [facility] for her pharmacy. Asking if she can have medication discontinued and placed on something else? Her next appt is scheduled on 03/22/2024 with Mika Kaplan for a physical. Please advise Sagar Stewart MD 03/11/2024 9:47 AM Signed Would recommend seeing a provider sooner since has gained weight off diuretic. If short of breath, to Teresa Caruso RN 03/11/2024 10:57 AM Signed Shobha from [facility] called and is notified of providers message and instructions. She voices understanding and states Pt isn't SOB. Pt scheduled tomorrow with Dr Corona at 940 am. Teresa Ferrera RN Allergies As of Date: 03/11/2024 Noted Allergy Reaction BEE STING 02/28/2023 10 - Anaphylaxis DILANTIN (PHENYTOIN SODIUM EXTEND*01/28/2006 Date Reviewed: 02/16/2024 Reviewed by: Lacie Reyes LPN - Fully Assessed Reason for Visit: Medication Question [2118] Prescriptions as of 03/11/2024 - midodrine (PROAMITINE) [...] 1 tablet by mouth once daily. - Uligb-1-NFR-EPA-Fish Oil 1,000 mg (120 mg-180 mg) cap [...] of consciousnes (more content not included)... Normal [facility]-09-20[facility] SIA ABDUL ([id number]) 1980 F Date Time Provider Department 03/09/24 MARILEE THAKUR INTWS During your visit today, we recorded the following information about you: Pepper Walsh RN 03/09/2024 11:48 AM Signed Leia Physical Therapist with [facility] calling and requesting verbal order to continue in-home Physical Therapy for patient. Please call Leia at [phone]. May leave detailed message on this secure VM. RODRÍGUEZ Blake Joy, APRN.CATERERS HELPER 03/12/2024 8:11 AM Signed Ok to continue in home physical therapy. Thank you Mika Kaplan APRN.Pepper Boss RN 03/12/2024 8:17 AM Signed Leia Physical Therapist with [facility], notified. Pepper Walsh RN Allergies [...] 1 tablet by mouth once daily. - Xonqu-5-RLV-EPA-Fish Oil 1,000 mg (120 mg-180 mg) cap [...] 12/13/2013 Amenorr (more content not included)... Normal [facility] Ammoniaon 03-01-2024 Ammonia (P) [Moles/Vol] 35.0 umol/L High [facility] Comment on above: Performed By: #### L 503.5510 ####[facility] [address] [place], [address] Basic Metabolic Profile (BMP )on 03-01-2024 BUN/CRE 39.1 RATIO High 12-27 [facility] Comment on above: Performed By: #### L 500.2500, L501.2300, L501.5200 ####[facility] [address] [place], [address] CA,Total 8.6 mg/dL Normal 8.5-10.1 [facility] Comment on above: Performed By: #### L 500.2500, L501.2300, L501.5200 ####[facility] [address] [place], [address] Chloride [Moles/Vol] 100 mmol/L Normal 98-107 [facility] Comment on above: Performed By: #### L 500.2500, L501.2300, L501.5200 ####[facility] [address] [place], [address] CO2 [Moles/Vol] 38.0 mmol/L High 21.0-32.0 [facility] Comment on above: Performed By: #### L 500.2500, L501.2300, L501.5200 ####[facility] [address] [place], [address] Creatinine [Mass/Vol] 0.66 mg/dL Normal 0.55-1.02 [facility] Comment on above: Result Comment: The validity of the calculated GFR GFRAA in patients over70 years has not been determined. Clinical correlation isessential. Performed By: #### L 500.2500, L501.2300, L501.5200 ####[facility] [address] [place], [address] ECRCL 140.85 ml/min Normal [facility] Comment on above: Performed By: #### L 500.2500, L501.2300, L501.5200 ####[facility] [address] [place], [address] EST GFR - AA 125 mL/min Normal >60 [facility] Comment on above: Result Comment: Afri can Japanese GFR Calc Performed By: #### L 500.2500, L501.2300, L501.5200 ####[facility] [address] [place], [address] GAP 1 Low 5-15 [facility] Comment on above: Performed By: #### L 500.2500, L501.2300, L501.5200 ####[facility] [address] [place], [address] GFR/1.73 sq M.predicted among non-blacks MDRD (S/P/Bld) [Vol rate/Area] 104 mL/min/{1.73_m2} Normal >60 [facility] Comment on above: Result Comment: Non- GFR Calc Performed By: #### L 500.2500, L501.2300, L501.5200 ####[facility] [address] [place], [address] Glucose [Mass/Vol] 85 mg/dL Normal 74-106 [facility] Comment on above: Performed By: #### L 500.2500, L501.2300, L501.5200 ####[facility] [address] [place], [address] Potassium [Moles/Vol] 4.6 mmol/L Normal 3.5-5.1 [facility] Comment on above: Result Comment: Slig ht Hemolysis, Result may be falsely increased. Performed By: #### L 500.2500, L501.2300, L501.5200 ####[facility] [address] [place], [address] Sodium [Moles/Vol] 138 mmol/L Normal 136-145 [facility] Comment on above: Performed By: #### L 500.2500, L501.2300, L501.5200 ####[facility] [address] [place], [address] Urea nitrogen [Mass/Vol] 26 mg/dL High 7-18 [facility] Comment on above: Performed By: #### L 500.2500, L501.2300, L501.5200 ####[facility] [address] [place], [address] Bedside Glucoseon 03-01-2024 FINGERSTICK GLU 91 mg/dL Normal 74-106 [facility] Comment on above: Result Comment: ETHAN PRITCHETT OF PATIENT CARE PER NURSING PROTOCOL Performed By: #### L 501.080 ####[facility] [address] [place], [address] Brain/Head without Contrasto n 03-01-2024 Brain/Head without Contrast Normal [facility] Magnesiumon 03-01-2024 Magnesium [Mass/Vol] 2.3 mg/dL Normal 1.6-2.6 [facility] Comment on above: Result Comment: Slig ht Hemolysis, Result may be falsely increased. Performed By: #### L 500.2500, L501.2300, L501.5200 ####[facility] [address] [place], [address] Phosphoruson 03-01-2024 Phosphate [Mass/Vol] 3.6 mg/dL Normal 2.5-4.9 [facility] Comment on above: Performed By: #### L 500.2500, L501.2300, L501.5200 ####[facility] [address] [place], [address] Venous Blood Gason 4 Blood Gas Type SATISH [facility] Comment on above: Performed By: #### L 9000.0810 ####[facility] [address] [place], [address] CO2 [Moles/Vol] 39 mmol/L High 23-33 [facility] Comment on above: Performed By: #### L 9000.0810 ####[facility] [address] [place], [address] HCO3 (Bld) [Moles/Vol] 37 mmol/L High 22-26 [facility] Comment on above: Performed By: #### L 9000.0810 ####[facility] [address] [place], [address] O2 Delivery Dev Not entered [facility] Comment on above: Performed By: #### L 9000.0810 ####[facility] [address] [place], [address] [facility] Comment on above: Performed By: #### L 9000.0810 ####[facility] [address] [place], [address] VBG BE 11 mmol/L High -1.0-3.5 [facility] Comment on above: Performed By: #### L 9000.0810 ####[facility] [address] [place], [address] VBG pCO2 65.5 mmHg High 41-51 [facility] Comment on above: Performed By: #### L 9000.0810 ####[facility] [address] [place], [address] VBG pH 7.35 Normal 7.32-7.42 [facility] Comment on above: Performed By: #### L 9000.0810 ####[facility] [address] [place], [address] VBG PO2 159 mmHg High 25-40 [facility] Comment on above: Performed By: #### L 9000.0810 ####[facility] [address] [place], [address] VBG SO2 99 High 50-70 [facility] Comment on above: Performed By: #### L 9000.0810 ####[facility] [address] [place], [address] BNP,B-Type NATRIURETIC PEPTI Christa 02-29-2024 Natriuretic peptide B (Bld) [Mass/Vol] 312.0 pg/mL High 0-100 [facility] Comment on above: Performed By: #### L 503.6620, L500.2500 ####[facility] [address] [place], [address] Basic Metabolic Profile (BMP )on 02-29-2024 BUN/CRE 40.5 RATIO High 10-20 [facility] Comment on above: Performed By: #### L 503.6620, L500.2500 ####[facility] [address] [place], [address] CA,Total 8.4 mg/dL Low 8.5-10.1 [facility] Comment on above: Performed By: #### L 503.6620, L500.2500 ####[facility] [address] [place], [address] Chloride [Moles/Vol] 102 mmol/L Normal 98-107 [facility] Comment on above: Performed By: #### L 503.6620, L500.2500 ####[facility] [address] [place], [address] CO2 [Moles/Vol] 39.0 mmol/L High 21.0-32.0 [facility] Comment on above: Performed By: #### L 503.6620, L500.2500 ####[facility] [address] [place], [address] Creatinine [Mass/Vol] 0.62 mg/dL Normal 0.55-1.02 [facility] Comment on above: Result Comment: The validity of the calculated GFR GFRAA in patients over70 years has not been determined. Clinical correlation isessential. Performed By: #### L 503.6620, L500.2500 ####[facility] [address] [place], [address] ECRCL 149.86 ml/min Normal [facility] Comment on above: Performed By: #### L 503.6620, L500.2500 ####[facility] [address] [place], [address] EST GFR - AA 137 mL/min Normal >60 [facility] Comment on above: Result Comment: Afri can Japanese GFR Calc Performed By: #### L 503.6620, L500.2500 ####[facility] [address] [place], [address] GAP 1 Low 5-15 [facility] Comment on above: Performed By: #### L 503.6620, L500.2500 ####[facility] [address] [place], [address] GFR/1.73 sq M.predicted among non-blacks MDRD (S/P/Bld) [Vol rate/Area] 113 mL/min/{1.73_m2} Normal >60 [facility] Comment on above: Result Comment: Non- GFR Calc Performed By: #### L 503.6620, L500.2500 ####[facility] [address] [place], [address] Glucose [Mass/Vol] 89 mg/dL Normal 74-106 [facility] Comment on above: Performed By: #### L 503.6620, L500.2500 ####[facility] [address] [place], [address] Potassium [Moles/Vol] 4.2 mmol/L Normal 3.5-5.1 [facility] Comment on above: Performed By: #### L 503.6620, L500.2500 ####[facility] [address] [place], [address] Sodium [Moles/Vol] 142 mmol/L Normal 136-145 [facility] Comment on above: Performed By: #### L 503.6620, L500.2500 ####[facility] [address] [place], [address] Urea nitrogen [Mass/Vol] 25 mg/dL High 7-18 [facility] Comment on above: Performed By: #### L 503.6620, L500.2500 ####[facility] [address] [place], [address] BNP,B-Type NATRIURETIC PEPTI Christa 02-28-2024 Natriuretic peptide B (Bld) [Mass/Vol] 429.2 pg/mL High 0-100 [facility] Comment on above: Performed By: #### L 503.6620, L500.2500, L100.0500 ####[facility] [address] [place], [address] Basic Metabolic Profile (BMP )on 02-28-2024 BUN/CRE 42.7 RATIO High 10-20 [facility] Comment on above: Performed By: #### L 503.6620, L500.2500, L100.0500 ####[facility] [address] [place], [address] CA,Total 8.3 mg/dL Low 8.5-10.1 [facility] Comment on above: Performed By: #### L 503.6620, L500.2500, L100.0500 ####[facility] [address] [place], [address] Chloride [Moles/Vol] 103 mmol/L Normal 98-107 [facility] Comment on above: Performed By: #### L 503.6620, L500.2500, L100.0500 ####[facility] [address] [place], [address] CO2 [Moles/Vol] 39.0 mmol/L High 21.0-32.0 [facility] Comment on above: Performed By: #### L 503.6620, L500.2500, L100.0500 ####[facility] [address] [place], [address] Creatinine [Mass/Vol] 0.68 mg/dL Normal 0.55-1.02 [facility] Comment on above: Result Comment: The validity of the calculated GFR GFRAA in patients over70 years has not been determined. Clinical correlation isessential. Performed By: #### L 503.6620, L500.2500, L100.0500 ####[facility] [address] [place], [address] ECRCL 136.43 ml/min Normal [facility] Comment on above: Performed By: #### L 503.6620, L500.2500, L100.0500 ####[facility] [address] [place], [address] EST GFR - AA 122 mL/min Normal >60 [facility] Comment on above: Result Comment: Afri can Japanese GFR Calc Performed By: #### L 503.6620, L500.2500, L100.0500 ####[facility] [address] [place], [address] GAP 2 Low 5-15 [facility] Comment on above: Performed By: #### L 503.6620, L500.2500, L100.0500 ####[facility] [address] [place], [address] GFR/1.73 sq M.predicted among non-blacks MDRD (S/P/Bld) [Vol rate/Area] 101 mL/min/{1.73_m2} Normal >60 [facility] Comment on above: Result Comment: Non- GFR Calc Performed By: #### L 503.6620, L500.2500, L100.0500 ####[facility] [address] [place], [address] Glucose [Mass/Vol] 93 mg/dL Normal 74-106 [facility] Comment on above: Performed By: #### L 503.6620, L500.2500, L100.0500 ####[facility] [address] [place], [address] Potassium [Moles/Vol] 4.1 mmol/L Normal 3.5-5.1 [facility] Comment on above: Performed By: #### L 503.6620, L500.2500, L100.0500 ####[facility] [address] [place], [address] Sodium [Moles/Vol] 144 mmol/L Normal 136-145 [facility] Comment on above: Performed By: #### L 503.6620, L500.2500, L100.0500 ####[facility] [address] [place], [address] Urea nitrogen [Mass/Vol] 29 mg/dL High 7-18 [facility] Comment on above: Performed By: #### L 503.6620, L500.2500, L100.0500 ####[facility] [address] [place], [address] CBC-Complete Blood Cnt No Di ffon 02-28-2024 Erythrocyte distribution width (RBC) [Ratio] 13.2 % Normal 11.6-14.6 [facility] Comment on above: Performed By: #### L 503.6620, L500.2500, L100.0500 ####[facility] [address] [place], [address] Hematocrit (Bld) [Volume fraction] 35.3 % Low 37-47 [facility] Comment on above: Performed By: #### L 503.6620, L500.2500, L100.0500 ####[facility] [address] [place], [address] Hemoglobin (Bld) [Mass/Vol] 10.5 g/dL Low 12.0-15.0 [facility] Comment on above: Performed By: #### L 503.6620, L500.2500, L100.0500 ####[facility] [address] [place], [address] MCH (RBC) [Entitic mass] 31.3 pg Normal 27.0-32.0 [facility] Comment on above: Performed By: #### L 503.6620, L500.2500, L100.0500 ####[facility] [address] [place], [address] MCHC (RBC) [Mass/Vol] 29.7 g/dL Low 32-36 [facility] Comment on above: Performed By: #### L 503.6620, L500.2500, L100.0500 ####[facility] [address] [place], [address] MCV (RBC) [Entitic vol] 105.4 fL High 81-99 [facility] Comment on above: Performed By: #### L 503.6620, L500.2500, L100.0500 ####[facility] [address] [place], [address] Platelet mean volume (Bld) [Entitic vol] 11.6 fL Normal 6.2-12.0 [facility] Comment on above: Performed By: #### L 503.6620, L500.2500, L100.0500 ####[facility] [address] [place], [address] Platelets (Bld) [#/Vol] 149 10*3/uL Low 150-450 [facility] Comment on above: Performed By: #### L 503.6620, L500.2500, L100.0500 ####[facility] [address] [place], [address] RBC (Bld) [#/Vol] 3.35 10*6/uL Low 4.2-5.4 [facility] Comment on above: Performed By: #### L 503.6620, L500.2500, L100.0500 ####[facility] [address] [place], [address] RDW SD 50.5 fl High 35.1-43.9 [facility] Comment on above: Performed By: #### L 503.6620, L500.2500, L100.0500 ####[facility] [address] [place], [address] WBC (Bld) [#/Vol] 12.9 10*3/uL High 4.4-11.0 [facility] Comment on above: Performed By: #### L 503.6620, L500.2500, L100.0500 ####[facility] [address] [place], [address] .Auto Diffon 02-27-2024 Basophil, Absolute 0.0 10 3/mcL Normal 0.0-0.2 [facility] Comment on above: Performed By: #### C BC, ANEU, GFR, PBNP, BMP, TROPHS, MG, MDW, ADIFF #### [address] [address] Basophils/100 WBC (Bld) 0.3 % Normal 0.0-2.5 [facility] Comment on above: Performed By: #### C BC, ANEU, GFR, PBNP, BMP, TROPHS, MG, MDW, ADIFF #### [address] [address] Eosinophil, Absolute 0.4 10 3/mcL Normal 0.0-0.7 [facility] Comment on above: Performed By: #### C BC, ANEU, GFR, PBNP, BMP, TROPHS, MG, MDW, ADIFF #### [address] [address] Eosinophils/100 WBC (Bld) 2.9 % Normal 0.0-7.0 [facility] Comment on above: Performed By: #### C BC, ANEU, GFR, PBNP, BMP, TROPHS, MG, MDW, ADIFF #### [address] [address] Lymphocyte, Absolute 2.3 10 3/mcL Normal 0.9-4.3 [facility] Comment on above: Performed By: #### C BC, ANEU, GFR, PBNP, BMP, TROPHS, MG, MDW, ADIFF #### [address] [address] Lymphocytes/100 WBC (Bld) 15.1 % Low 20.0-40.0 [facility] Comment on above: Performed By: #### C BC, ANEU, GFR, PBNP, BMP, TROPHS, MG, MDW, ADIFF #### [address] [address] Monocyte, Absolute 1.5 10 3/mcL High 0.1-1.4 [facility] Comment on above: Performed By: #### C BC, ANEU, GFR, PBNP, BMP, TROPHS, MG, MDW, ADIFF #### [address] [address] Monocytes/100 WBC (Bld) 10.0 % Normal 2.0-13.0 [facility] Comment on above: Performed By: #### C BC, ANEU, GFR, PBNP, BMP, TROPHS, MG, MDW, ADIFF #### [address] [address] Neutrophils/100 WBC (Bld) 71.5 % Normal 50.0-75.0 [facility] Comment on above: Performed By: #### C BC, ANEU, GFR, PBNP, BMP, TROPHS, MG, MDW, ADIFF #### [address] [address] .GFRon 02-27-2024 GFR Non- 64 ml/min/1.73sqm [facility] Comment on above: Result Comment: GFR Population [...] PBNP, BMP, TROPHS, MG, MDW, ADIFF #### [address] [address] GFR 78 ml/min/1.73sqm Normal [facility] Comment on above: Result Comment: GFR Population [...] PBNP, BMP, TROPHS, MG, MDW, ADIFF #### [address] [address] .MDWon 02-27-2024 Monocyte Distribution Width Not performed Normal 0.00-20.00 [facility] Comment on above: Result Comment: MDW testing unable to be performed on [id number] instrumentation. Performed By: #### C BC, ANEU, GFR, PBNP, BMP, TROPHS, MG, MDW, ADIFF #### [address] [address] .NEUABSon 02-27-2024 Neutrophil, Absolute 11.0 10 3/mcL High 2.3-8.1 [facility] Comment on above: Performed By: #### C BC, ANEU, GFR, PBNP, BMP, TROPHS, MG, MDW, ADIFF #### [address] [address] BMPon 02-27-2024 BUN/Creatinine Ratio 39 ratio High 7-27 [facility] Comment on above: Performed By: #### C BC, ANEU, GFR, PBNP, BMP, TROPHS, MG, MDW, ADIFF #### [address] [address] Calcium [Mass/Vol] 8.7 mg/dL Normal 8.4-10.2 [facility] Comment on above: Performed By: #### C BC, ANEU, GFR, PBNP, BMP, TROPHS, MG, MDW, ADIFF #### [address] [address] Chloride [Moles/Vol] 101 mmol/L Normal 98-107 [facility] Comment on above: Performed By: #### C BC, ANEU, GFR, PBNP, BMP, TROPHS, MG, MDW, ADIFF #### [address] [address] CO2 [Moles/Vol] 39 mmol/L High 22-29 [facility] Comment on above: Performed By: #### C BC, ANEU, GFR, PBNP, BMP, TROPHS, MG, MDW, ADIFF #### [address] [address] Creatinine [Mass/Vol] 0.96 mg/dL Normal 0.55-1.02 [facility] Comment on above: Result Comment: Test ing performed on Myrio Dimension EXL analyzer using a modified kinetic Melanie technique. Performed By: #### C BC, ANEU, GFR, PBNP, BMP, TROPHS, MG, MDW, ADIFF #### [address] [address] Electrolyte Balance 4.0 mEq/L Normal 4.0-15.0 [facility] Comment on above: Performed By: #### C BC, ANEU, GFR, PBNP, BMP, TROPHS, MG, MDW, ADIFF #### [address] [address] Glucose [Mass/Vol] 100 mg/dL Normal 70-105 [facility] Comment on above: Performed By: #### C BC, ANEU, GFR, PBNP, BMP, TROPHS, MG, MDW, ADIFF #### [address] [address] Potassium [Moles/Vol] 4.8 mmol/L Normal 3.5-5.1 [facility] Comment on above: Performed By: #### C BC, ANEU, GFR, PBNP, BMP, TROPHS, MG, MDW, ADIFF #### [address] [address] Sodium [Moles/Vol] 144 mmol/L Normal 136-145 [facility] Comment on above: Performed By: #### C BC, ANEU, GFR, PBNP, BMP, TROPHS, MG, MDW, ADIFF #### [address] [address] Urea nitrogen [Mass/Vol] 37 mg/dL High 7-18 [facility] Comment on above: Performed By: #### C BC, ANEU, GFR, PBNP, BMP, TROPHS, MG, MDW, ADIFF #### [address] [address] CBCon 02-27-2024 Erythrocyte distribution width (RBC) [Ratio] 13.0 % Normal 11.5-15.5 [facility] Comment on above: Performed By: #### C BC, ANEU, GFR, PBNP, BMP, TROPHS, MG, MDW, ADIFF #### [address] [address] Hematocrit (Bld) [Volume fraction] 37.9 % Normal 34.0-46.0 [facility] Comment on above: Performed By: #### C BC, ANEU, GFR, PBNP, BMP, TROPHS, MG, MDW, ADIFF #### [address] [address] Hgb 12.1 G/dL Normal 12.0-16.0 [facility] Comment on above: Performed By: #### C BC, ANEU, GFR, PBNP, BMP, TROPHS, MG, MDW, ADIFF #### [address] [address] MCH (RBC) [Entitic mass] 32.0 pg Normal 27.0-33.0 [facility] Comment on above: Performed By: #### C BC, ANEU, GFR, PBNP, BMP, TROPHS, MG, MDW, ADIFF #### [address] [address] MCHC 32.0 G/dL Normal 32.0-36.0 [facility] Comment on above: Performed By: #### C BC, ANEU, GFR, PBNP, BMP, TROPHS, MG, MDW, ADIFF #### [address] [address] MCV (RBC) [Entitic vol] 100.1 fL High 80.0-99.0 [facility] Comment on above: Performed By: #### C BC, ANEU, GFR, PBNP, BMP, TROPHS, MG, MDW, ADIFF #### [address] [address] Platelet 169 10 3/mcL Normal 150-450 [facility] Comment on above: Performed By: #### C BC, ANEU, GFR, PBNP, BMP, TROPHS, MG, MDW, ADIFF #### [address] [address] Platelet mean volume (Bld) [Entitic vol] 8.9 fL Normal 6.6-10.5 [facility] Comment on above: Performed By: #### C BC, ANEU, GFR, PBNP, BMP, TROPHS, MG, MDW, ADIFF #### [address] [address] RBC 3.79 10 6/mcL Low 4.10-5.30 [facility] Comment on above: Performed By: #### C BC, ANEU, GFR, PBNP, BMP, TROPHS, MG, MDW, ADIFF #### [address] [address] WBC 15.4 10 3/mcL High 4.5-10.8 [facility] Comment on above: Performed By: #### C BC, ANEU, GFR, PBNP, BMP, TROPHS, MG, MDW, ADIFF #### [address] [address] H AND P Exam - Hospitaliston 02-27-2024 H&P Exam - Hospitalist Normal [facility] LABORATORYOrdered By: SYSTEM SYSTEM on 02-27-2024 Troponin I.cardiac DL <= 0.01 ng/mL [Mass/Vol] 90 ng/L High 0 - 51 ng/L AO ADM SS Comment on above: Interpretive Data: H igh Sensitive Troponin I Reference Ranges: Female: 0-51 ng/L Male: 0-76 ng/L Testing performed on Rainbow using a homogeneous sandwich chemiluminescent immunoassay based on Casagem technology. Basophils (Bld) [#/Vol] 0.0 103/mcL Normal [...] Workflow SS Natriuretic peptide.B prohormone N-Terminal [Mass/Vol] [address] pg/mL High 0 - 125 pg/mL AO [...] ng/L Male: 0-76 ng/L Testing performed on Rainbow using a homogeneous sandwich chemiluminescent immunoassay based on Casagem technology. Urea nitrogen [Mass/Vol] 37 mg/dL High [...] MDW testing unable to be performed on [id number] instrumentation. PBNPon 02-27-2024 Natriuretic peptide B (Bld) [Mass/Vol] [address]692 pg/mL High 0-125 [facility] Comment on above: Result Comment: NT-p roBNP results of less than 300 pg/mL effectively rules out acute congestive heart failure with 99% negative predictive value. Performed By: #### C BC, ANEU, GFR, PBNP, BMP, TROPHMG Fritz MDW, ADIFF #### [address] [place], [place] [address] TROPHSon 02-27-2024 High Sensitivity Troponin I 90 ng/L [facility] [address] Comment on above: Result Comment: High Sensitive Troponin I Reference Ranges: Female: 0-51 ng/L Male: 0-76 ng/L Testing performed on Dimension [email or web address] using a homogeneous sandwich chemiluminescent immunoassay based on Casagem technology. Performed By: #### C BC, ANEU, GFR, PBNP, BMP, TROPHSMG MDW, ADIFF #### [address] [place] [address] High Sensitivity Troponin I 87 ng/L [facility] [address] Comment on above: Result Comment: High Sensitive Troponin I Reference Ranges: Female: 0-51 ng/L Male: 0-76 ng/L Testing performed on Dimension EXL using a homogeneous sandwich chemiluminescent immunoassay based on Casagem technology. Performed By: #### C BC, ANEU, GFR, PBNP, BMP, MG SUAREZ MDW, ADIFF #### [address] [place], [place] [address] XR CHEST 1 VIEWon 02-27-2024 XR CHEST [...] 02/27/2024 3:05:24 AM Ordering Provider: JAMILA DARDEN [facility] Basic Metabolic Profile (BMP )on 02-26-2024 BUN/CRE 40.2 RATIO High 10-20 [facility] Comment on above: Performed By: #### L 100.0500, L500.2500, L300.3900 ####[facility] [address] [place], [address] CA,Total 8.8 mg/dL Normal 8.5-10.1 [facility] Comment on above: Performed By: #### L 100.0500, L500.2500, L300.3900 ####[facility] [address] [place], [address] Chloride [Moles/Vol] 104 mmol/L Normal 98-107 [facility] Comment on above: Performed By: #### L 100.0500, L500.2500, L300.3900 ####[facility] [address] [place], [address] CO2 [Moles/Vol] 33.0 mmol/L High 21.0-32.0 [facility] Comment on above: Performed By: #### L 100.0500, L500.2500, L300.3900 ####[facility] [address] [place], [address] Creatinine [Mass/Vol] 0.75 mg/dL Normal 0.55-1.02 [facility] Comment on above: Result Comment: The validity of the calculated GFR GFRAA in patients over70 years has not been determined. Clinical correlation isessential. Performed By: #### L 100.0500, L500.2500, L300.3900 ####[facility] [address] [place], [address] ECRCL 123.70 ml/min Normal [facility] Comment on above: Performed By: #### L 100.0500, L500.2500, L300.3900 ####[facility] [address] [place], [address] EST GFR - AA 110 mL/min Normal >60 [facility] Comment on above: Result Comment: Afri can Japanese GFR Calc Performed By: #### L 100.0500, L500.2500, L300.3900 ####[facility] [address] [place], [address] GAP 3 Low 5-15 [facility] Comment on above: Performed By: #### L 100.0500, L500.2500, L300.3900 ####[facility] [address] [place], [address] GFR/1.73 sq M.predicted among non-blacks MDRD (S/P/Bld) [Vol rate/Area] 91 mL/min/{1.73_m2} Normal >60 [facility] Comment on above: Result Comment: Non- GFR Calc Performed By: #### L 100.0500, L500.2500, L300.3900 ####[facility] [address] [place], [address] Glucose [Mass/Vol] 152 mg/dL High 74-106 [facility] Comment on above: Result Comment: Fast ing Glucose result greater than or equal to 126 mg/dLsuggests DIABETES MELLITUS per A.D.A. criteria. Performed By: #### L 100.0500, L500.2500, L300.3900 ####[facility] [address] [place], [address] Potassium [Moles/Vol] 4.2 mmol/L Normal 3.5-5.1 [facility] Comment on above: Performed By: #### L 100.0500, L500.2500, L300.3900 ####[facility] [address] [place], [address] Sodium [Moles/Vol] 140 mmol/L Normal 136-145 [facility] Comment on above: Performed By: #### L 100.0500, L500.2500, L300.3900 ####[facility] [address] [place], [address] Urea nitrogen [Mass/Vol] 30 mg/dL High 7-18 [facility] Comment on above: Performed By: #### L 100.0500, L500.2500, L300.3900 ####[facility] [address] [place], [address] CBC-Complete Blood Cnt No Di ffon 02-26-2024 Erythrocyte distribution width (RBC) [Ratio] 13.1 % Normal 11.6-14.6 [facility] Comment on above: Performed By: #### L 100.0500, L500.2500, L300.3900 ####[facility] [address] [place], [address] Hematocrit (Bld) [Volume fraction] 37.4 % Normal 37-47 [facility] Comment on above: Performed By: #### L 100.0500, L500.2500, L300.3900 ####[facility] [address] [place], [address] Hemoglobin (Bld) [Mass/Vol] 11.0 g/dL Low 12.0-15.0 [facility] Comment on above: Performed By: #### L 100.0500, L500.2500, L300.3900 ####[facility] [address] [place], [address] MCH (RBC) [Entitic mass] 31.3 pg Normal 27.0-32.0 [facility] Comment on above: Performed By: #### L 100.0500, L500.2500, L300.3900 ####[facility] [address] [place], [address] MCHC (RBC) [Mass/Vol] 29.4 g/dL Low 32-36 [facility] Comment on above: Performed By: #### L 100.0500, L500.2500, L300.3900 ####[facility] [address] [place], [address] MCV (RBC) [Entitic vol] 106.3 fL High 81-99 [facility] Comment on above: Performed By: #### L 100.0500, L500.2500, L300.3900 ####[facility] [address] [place], [address] Platelet mean volume (Bld) [Entitic vol] 11.2 fL Normal 6.2-12.0 [facility] Comment on above: Performed By: #### L 100.0500, L500.2500, L300.3900 ####[facility] [address] [place], [address] Platelets (Bld) [#/Vol] 126 10*3/uL Low 150-450 [facility] Comment on above: Performed By: #### L 100.0500, L500.2500, L300.3900 ####[facility] [address] [place], [address] RBC (Bld) [#/Vol] 3.52 10*6/uL Low 4.2-5.4 [facility] Comment on above: Performed By: #### L 100.0500, L500.2500, L300.3900 ####[facility] [address] [place], [address] RDW SD 50.9 fl High 35.1-43.9 [facility] Comment on above: Performed By: #### L 100.0500, L500.2500, L300.3900 ####[facility] [address] [place], [address] WBC (Bld) [#/Vol] 12.7 10*3/uL High 4.4-11.0 [facility] Comment on above: Performed By: #### L 100.0500, L500.2500, L300.3900 ####[facility] [address] [place], [address] CRPon 02-26-2024 C-REACTIVE PROT 65.60 mg/L High 0.0-3.0 [facility] Comment on above: Result Comment: C-Re active Protein (CRP) provides useful information for thediagnosis, therapy and monitoring of inflammatory processesand associated diseases. For the evaluation of Relative Riskfor Cardiovascular Disease, a High Sensitivity CRP (HSCRP)should be ordered. Performed By: #### L 501.6710, L101.9900 ####[facility] [address] [place], [address] Erythrocyte Sed Rateon 02-25 SED RATE 25 mm/hr Normal 0-30 [facility] Comment on above: Performed By: #### L 501.6710, L101.9900 ####[facility] [address] [place], [address] Partial Thromboplast Timeon 02-26-2024 aPTT Coag (Bld) [Time] 28.8 s Normal 24.1-36.2 [facility] Comment on above: Order Comment: REDRA W. PREVIOUS SPECIMEN REJECTED DUE TOSPECIMEN BEING CLOTTED. 02/26/24 0744 Noemi Olivo Performed By: #### L 300.4310, L300.3900 ####[facility] [address] [place], [address] Prothrombin Time w/INRon INR Coag (PPP) [Relative time] 1.2 {INR} Normal [facility] Comment on above: Order Comment: REDRA W. PREVIOUS SPECIMEN REJECTED DUE TOSPECIMEN BEING CLOTTED. 02/26/2444 Noemi Hooverr. Performed By: #### L 300.4310, L300.3900 ####[facility] [address] [place], [address] PT Coag (PPP) [Time] 15.2 s High 11.7-14.9 [facility] Comment on above: Order Comment: REDRA W. PREVIOUS SPECIMEN REJECTED DUE TOSPECIMEN BEING CLOTTED. 02/26/2444 Noemi Hooverr. Performed By: #### L 300.4310, L300.3900 ####[facility] [address] [place], [address] INR Normal [facility] Comment on above: Result Comment: This specimen has been REJECTED due to Laboratory criteria:Clotted.PHLEB STAFF has been notified of need of recollection.02/26/2443 Noemi Hooverr Performed By: #### L 100.0500, L500.2500, L300.3900 ####[facility] [address] [place], [address] PROTIME Normal 11.7-14.9 [facility] Comment on above: Result Comment: This specimen has been REJECTED due to Laboratory criteria:Clotted.PHLEB STAFF has been notified of need of recollection.02/26/2443 Noemi Hooverr Performed By: #### L 100.0500, L500.2500, L300.3900 ####[facility] [address] [place], [address] Shoulder min 2 Viewson 02-25 Shoulder min 2 Views Normal [facility] 12 Lead EKGon 02-25-2024 12 Lead EKG Normal [facility] BNP,B-Type NATRIURETIC PEPTI Christa 02-25-2024 Natriuretic peptide B (Bld) [Mass/Vol] 1191.6 pg/mL High 0-100 [facility] Comment on above: Performed By: #### L 503.4497 ####[facility] [address] [place], [address] Basic Metabolic Profile (BMP )on 02-25-2024 BUN/CRE 38.2 RATIO High 10-20 [facility] Comment on above: Performed By: #### L 500.2500, L100.0100 ####[facility] [address] [place], [address] CA,Total 8.9 mg/dL Normal 8.5-10.1 [facility] Comment on above: Performed By: #### L 500.2500, L100.0100 ####[facility] [address] [place], [address] Chloride [Moles/Vol] 104 mmol/L Normal 98-107 [facility] Comment on above: Performed By: #### L 500.2500, L100.0100 ####[facility] [address] [place], [address] CO2 [Moles/Vol] 35.0 mmol/L High 21.0-32.0 [facility] Comment on above: Performed By: #### L 500.2500, L100.0100 ####[facility] [address] [place], [address] Creatinine [Mass/Vol] 1.00 mg/dL Normal 0.55-1.02 [facility] Comment on above: Result Comment: The validity of the calculated GFR GFRAA in patients over70 years has not been determined. Clinical correlation isessential. Performed By: #### L 500.2500, L100.0100 ####[facility] [address] [place], [address] ECRCL 92.78 ml/min Normal [facility] Comment on above: Performed By: #### L 500.2500, L100.0100 ####[facility] [address] [place], [address] EST GFR - AA 79 mL/min Normal >60 [facility] Comment on above: Result Comment: Afri can Japanese GFR Calc Performed By: #### L 500.2500, L100.0100 ####[facility] [address] [place], [address] GAP 1 Low 5-15 [facility] Comment on above: Performed By: #### L 500.2500, L100.0100 ####[facility] [address] [place], [address] GFR/1.73 sq M.predicted among non-blacks MDRD (S/P/Bld) [Vol rate/Area] 65 mL/min/{1.73_m2} Normal >60 [facility] Comment on above: Result Comment: Non- GFR Calc Performed By: #### L 500.2500, L100.0100 ####[facility] [address] [place], [address] Glucose [Mass/Vol] 100 mg/dL Normal 74-106 [facility] Comment on above: Result Comment: Fast ing Glucose result from 100 to 125 mg/dLsuggests IMPAIRED HOMEOSTASIS per A.D.A. criteria. Performed By: #### L 500.2500, L100.0100 ####[facility] [address] [place], [address] Potassium [Moles/Vol] 5.0 mmol/L Normal 3.5-5.1 [facility] Comment on above: Result Comment: Mode rate Hemolysis, Result may be falsely increased. Performed By: #### L 500.2500, L100.0100 ####[facility] [address] [place], [address] Sodium [Moles/Vol] 140 mmol/L Normal 136-145 [facility] Comment on above: Performed By: #### L 500.2500, L100.0100 ####[facility] [address] [place], [address] Urea nitrogen [Mass/Vol] 38 mg/dL High 7-18 [facility] Comment on above: Performed By: #### L 500.2500, L100.0100 ####[facility] [address] [place], [address] CBC W/Diff, Automatedon 02-07 Absolute Lymph 2.73 X10 3/uL Normal 0.83-4.51 [facility] Comment on above: Performed By: #### L 500.2500, L100.0100 ####[facility] [address] [place], [address] Absolute Neut 9.8 X10 3/uL High 2.0-7.7 [facility] Comment on above: Performed By: #### L 500.2500, L100.0100 ####[facility] [address] [place], [address] Basophils/100 WBC (Bld) 0.5 % Normal 0-1 [facility] Comment on above: Performed By: #### L 500.2500, L100.0100 ####[facility] [address] [place], [address] Eosinophils/100 WBC (Bld) 3.0 % Normal 0-5 [facility] Comment on above: Performed By: #### L 500.2500, L100.0100 ####[facility] [address] [place], [address] Erythrocyte distribution width (RBC) [Ratio] 13.2 % Normal 11.6-14.6 [facility] Comment on above: Performed By: #### L 500.2500, L100.0100 ####[facility] [address] [place], [address] Hematocrit (Bld) [Volume fraction] 36.7 % Low 37-47 [facility] Comment on above: Performed By: #### L 500.2500, L100.0100 ####[facility] [address] [place], [address] Hemoglobin (Bld) [Mass/Vol] 11.2 g/dL Low 12.0-15.0 [facility] Comment on above: Performed By: #### L 500.2500, L100.0100 ####[facility] [address] [place], [address] IG% 0.800 Normal 0.0-0.9 [facility] Comment on above: Result Comment: IG% - Immature Granulocytes (promyelocytes, myelocytes andmetamyelocytes) > 1% indicates that a LEFT SHIFT is Present. Performed By: #### L 500.2500, L100.0100 ####[facility] [address] [place], [address] Lymphocytes/100 WBC (Bld) 18.9 % Low 19-41 [facility] Comment on above: Performed By: #### L 500.2500, L100.0100 ####[facility] [address] [place], [address] MCH (RBC) [Entitic mass] 32.2 pg High 27.0-32.0 [facility] Comment on above: Performed By: #### L 500.2500, L100.0100 ####[facility] [address] [place], [address] MCHC (RBC) [Mass/Vol] 30.5 g/dL Low 32-36 [facility] Comment on above: Performed By: #### L 500.2500, L100.0100 ####[facility] [address] [place], [address] MCV (RBC) [Entitic vol] 105.5 fL High 81-99 [facility] Comment on above: Performed By: #### L 500.2500, L100.0100 ####[facility] [address] [place], [address] Monocytes/100 WBC (Bld) 9.0 % Normal 0-10 [facility] Comment on above: Performed By: #### L 500.2500, L100.0100 ####[facility] [address] [place], [address] Neutrophils/100 WBC (Bld) 67.8 % Normal 47-70 [facility] Comment on above: Performed By: #### L 500.2500, L100.0100 ####[facility] [address] [place], [address] Nucleated RBC (Bld) [#/Vol] 0.5 10*3/uL Normal 0-5 [facility] Comment on above: Performed By: #### L 500.2500, L100.0100 ####[facility] [address] [place], [address] Platelet mean volume (Bld) [Entitic vol] 11.4 fL Normal 6.2-12.0 [facility] Comment on above: Performed By: #### L 500.2500, L100.0100 ####[facility] [address] [place], [address] Platelets (Bld) [#/Vol] 143 10*3/uL Low 150-450 [facility] Comment on above: Performed By: #### L 500.2500, L100.0100 ####[facility] [address] [place], [address] RBC (Bld) [#/Vol] 3.48 10*6/uL Low 4.2-5.4 [facility] Comment on above: Performed By: #### L 500.2500, L100.0100 ####[facility] [address] [place], [address] RDW SD 50.6 fl High 35.1-43.9 [facility] Comment on above: Performed By: #### L 500.2500, L100.0100 ####[facility] [address] [place], [address] WBC (Bld) [#/Vol] 14.4 10*3/uL High 4.4-11.0 [facility] Comment on above: Performed By: #### L 500.2500, L100.0100 ####[facility] [address] [place], [address] Cardiac Cath Diagnosticon Cardiac Cath Diagnostic Normal [facility] Consultation - Cardiologyon 02-25-2024 Consultation - Cardiology Normal [facility] Partial Thromboplast Timeon 02-25-2024 aPTT Coag (Bld) [Time] 26.2 s Normal 24.1-36.2 [facility] Comment on above: Performed By: #### L 300.4310 ####[facility] [address] [place], [address] ,Urineon 02-25-2024 Beta HCG ( test) Ql (U) Negative Normal [facility] Comment on above: Result Comment: Very dilute urine specimens, as indicated by a low specificgravity, may not contain licensing representative levels of hCG.If is still suspected, a first morning urinespecimen should be collected 48 hours later and tested. Performed By: #### L 400.9540 ####[facility] [address] [place], [address] Urine Cultureon 02-25-2024 URC Culture exhibits no growth. Normal [facility] Comment on above: Performed By: #### M 100.2200 ####[facility] [address] [place], [address] 12 Lead EKGon 02-24-2024 12 Lead EKG Normal [facility] 12 Lead EKG Normal [facility] Basic Metabolic Profile (BMP )on 02-24-2024 BUN/CRE 25.0 RATIO High 10-20 [facility] Comment on above: Performed By: #### L 500.2500, L100.0100, L300.8000 ####[facility] [address] [place], [address] CA,Total 9.0 mg/dL Normal 8.5-10.1 [facility] Comment on above: Performed By: #### L 500.2500, L100.0100, L300.8000 ####[facility] [address] [place], [address] Chloride [Moles/Vol] 104 mmol/L Normal 98-107 [facility] Comment on above: Performed By: #### L 500.2500, L100.0100, L300.8000 ####[facility] [address] [place], [address] CO2 [Moles/Vol] 29.0 mmol/L Normal 21.0-32.0 [facility] Comment on above: Performed By: #### L 500.2500, L100.0100, L300.8000 ####[facility] [address] [place], [address] Creatinine [Mass/Vol] 1.56 mg/dL High 0.55-1.02 [facility] Comment on above: Result Comment: The validity of the calculated GFR GFRAA in patients over70 years has not been determined. Clinical correlation isessential. Performed By: #### L 500.2500, L100.0100, L300.8000 ####[facility] [address] [place], [address] EST GFR - AA 47 mL/min Low >60 [facility] Comment on above: Result Comment: Afri can Japanese GFR Calc Performed By: #### L 500.2500, L100.0100, L300.8000 ####[facility] [address] [place], [address] GAP 5 Normal 5-15 [facility] Comment on above: Performed By: #### L 500.2500, L100.0100, L300.8000 ####[facility] [address] [place], [address] GFR/1.73 sq M.predicted among non-blacks MDRD (S/P/Bld) [Vol rate/Area] 39 mL/min/{1.73_m2} Low >60 [facility] Comment on above: Result Comment: Non- GFR Calc Performed By: #### L 500.2500, L100.0100, L300.8000 ####[facility] [address] [place], [address] Glucose [Mass/Vol] 127 mg/dL High 74-106 [facility] Comment on above: Result Comment: Fast ing Glucose result greater than or equal to 126 mg/dLsuggests DIABETES MELLITUS per A.D.A. criteria. Performed By: #### L 500.2500, L100.0100, L300.8000 ####[facility] [address] [place], [address] Potassium [Moles/Vol] 4.7 mmol/L Normal 3.5-5.1 [facility] Comment on above: Result Comment: Slig ht Hemolysis, Result may be falsely increased. Performed By: #### L 500.2500, L100.0100, L300.8000 ####[facility] [address] [place], [address] Sodium [Moles/Vol] 138 mmol/L Normal 136-145 [facility] Comment on above: Performed By: #### L 500.2500, L100.0100, L300.8000 ####[facility] [address] [place], [address] Urea nitrogen [Mass/Vol] 39 mg/dL High 7-18 [facility] Comment on above: Performed By: #### L 500.2500, L100.0100, L300.8000 ####[facility] [address] [place], [address] CBC W/Diff, Automatedon 12- Absolute Lymph 2.55 X10 3/uL Normal 0.83-4.51 [facility] Comment on above: Performed By: #### L 500.2500, L100.0100, L300.8000 ####[facility] [address] [place], [address] Absolute Neut 11.7 X10 3/uL High 2.0-7.7 [facility] Comment on above: Performed By: #### L 500.2500, L100.0100, L300.8000 ####[facility] [address] [place], [address] Basophils/100 WBC (Bld) 0.6 % Normal 0-1 [facility] Comment on above: Performed By: #### L 500.2500, L100.0100, L300.8000 ####[facility] [address] [place], [address] Eosinophils/100 WBC (Bld) 1.5 % Normal 0-5 [facility] Comment on above: Performed By: #### L 500.2500, L100.0100, L300.8000 ####[facility] [address] [place], [address] Erythrocyte distribution width (RBC) [Ratio] 13.1 % Normal 11.6-14.6 [facility] Comment on above: Performed By: #### L 500.2500, L100.0100, L300.8000 ####[facility] [address] [place], [address] Hematocrit (Bld) [Volume fraction] 37.8 % Normal 37-47 [facility] Comment on above: Performed By: #### L 500.2500, L100.0100, L300.8000 ####[facility] [address] [place], [address] Hemoglobin (Bld) [Mass/Vol] 11.6 g/dL Low 12.0-15.0 [facility] Comment on above: Performed By: #### L 500.2500, L100.0100, L300.8000 ####[facility] [address] [place], [address] IG% 0.900 Normal 0.0-0.9 [facility] Comment on above: Result Comment: IG% - Immature Granulocytes (promyelocytes, myelocytes andmetamyelocytes) > 1% indicates that a LEFT SHIFT is Present. Performed By: #### L 500.2500, L100.0100, L300.8000 ####[facility] [address] [place], [address] Lymphocytes/100 WBC (Bld) 15.7 % Low 19-41 [facility] Comment on above: Performed By: #### L 500.2500, L100.0100, L300.8000 ####[facility] [address] [place], [address] MCH (RBC) [Entitic mass] 32.1 pg High 27.0-32.0 [facility] Comment on above: Performed By: #### L 500.2500, L100.0100, L300.8000 ####[facility] [address] [place], [address] MCHC (RBC) [Mass/Vol] 30.7 g/dL Low 32-36 [facility] Comment on above: Performed By: #### L 500.2500, L100.0100, L300.8000 ####[facility] [address] [place], [address] MCV (RBC) [Entitic vol] 104.7 fL High 81-99 [facility] Comment on above: Performed By: #### L 500.2500, L100.0100, L300.8000 ####[facility] [address] [place], [address] Monocytes/100 WBC (Bld) 8.9 % Normal 0-10 [facility] Comment on above: Performed By: #### L 500.2500, L100.0100, L300.8000 ####[facility] [address] [place], [address] Neutrophils/100 WBC (Bld) 72.4 % High 47-70 [facility] Comment on above: Performed By: #### L 500.2500, L100.0100, L300.8000 ####[facility] [address] [place], [address] Nucleated RBC (Bld) [#/Vol] 0.4 10*3/uL Normal 0-5 [facility] Comment on above: Performed By: #### L 500.2500, L100.0100, L300.8000 ####[facility] [address] [place], [address] Platelet mean volume (Bld) [Entitic vol] 10.7 fL Normal 6.2-12.0 [facility] Comment on above: Performed By: #### L 500.2500, L100.0100, L300.8000 ####[facility] [address] [place], [address] Platelets (Bld) [#/Vol] 181 10*3/uL Normal 150-450 [facility] Comment on above: Performed By: #### L 500.2500, L100.0100, L300.8000 ####[facility] [address] [place], [address] RBC (Bld) [#/Vol] 3.61 10*6/uL Low 4.2-5.4 [facility] Comment on above: Performed By: #### L 500.2500, L100.0100, L300.8000 ####[facility] [address] [place], [address] RDW SD 49.3 fl High 35.1-43.9 [facility] Comment on above: Performed By: #### L 500.2500, L100.0100, L300.8000 ####[facility] [address] [place], [address] WBC (Bld) [#/Vol] 16.2 10*3/uL High 4.4-11.0 [facility] Comment on above: Performed By: #### L 500.2500, L100.0100, L300.8000 ####[facility] [address] [place], [address] CNPNon 02-24-2024 CNPN Telephone (INTMWS) SIA ABDUL ([id number]) 1980 F Date Time Provider Department 02/24/24 MARILEE THAKUR INTWS During your visit today, we recorded the following information about you: Lillie Marshall RN 02/24/2024 8:19 AM Signed Clarence from [facility] calls and reports that he [...] evaluated. Clarence agrees and voices understanding. 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 [...] 1 tablet by mouth once daily. - Ffruu-3-DAJ-EPA-Fish Oil 1,000 mg (120 mg-180 mg) cap [...] rhinitis [J (more content not included)... Normal [facility] CNPN Telephone (INTMWS) SIA ABDUL ([id number]) 1980 F Date Time Provider Department 02/24/24 MARILEE THAKUR INTMWS During your visit today, we recorded the following information about you: Pepper Walsh RN 02/24/2024 3:36 PM Signed Shobha, patient's caregiver from [facility] is calling to update PCP that patient is being admitted to [facility] for further evaluation of irregular pulse and [...] 1 tablet by mouth once daily. - Sqgpi-8-KNX-EPA-Fish Oil 1,000 mg (120 mg-180 mg) cap [...] (HCC) [Z68.41] (more content not included)... Normal [facility] CTA Chest W/WO Contraston CTA Chest W/WO Contrast Normal [facility] Chest 1 View (Portable)on Chest 1 View (Portable) Normal [facility] D-Dimer Quantitative (DVT/PE )on 02-24-2024 D-DIMER QUANT 3.38 FEU/ug/m Invalid Interpretation Code 0.27-0.49 [facility] Comment on above: Result Comment: D-Di alexandrea ELEVATED (>0.49): Additional studies and clinicalassessments are indicated to conclude diagnosis of:Deep Vein Thrombosis (DVT) or Pulmonary Embolism (PE)CRITICAL VALUE CALLED TO RVKNBB65/17/24 1109 Renu Villatoro.RESULTS READ BACK BY SAME. Performed By: #### L 500.2500, L100.0100, L300.8000 ####[facility] [address] [place], [place], [address] Echo, Limited Studyon 2023 Echo, Limited Study Normal [facility] Emergency Department Summary on 02-24-2024 Emergency Department Summary Normal [facility] H AND P Exam - Hospitaliston 02-24-2024 H&P Exam - Hospitalist Normal [facility] Kidney and Bladderon 024 Kidney and Bladder Normal [facility] L501.4020on 02-24-2024 TROPONIN-I HS 179 pg/mL Invalid Interpretation Code 3.0-54.0 [facility] Comment on above: Order Comment: Comme nts: SPECIMEN #3'TROP' Serial specimen #1, #2 or #3: 3 Result Comment: Crit ical Result(s) Called at: 21:35:19 02/24/2024 by: TORRIE FOSTER. Results read back by same. Please Note: New Test Units and Gender Specific Reference Ranges. For more information see Policy Stat Procedure [place] High Sensitivity Troponin (TNIH) and attachments. Performed By: #### L 501.4020 ####[facility] [address] [place], [place], [address] TROPONIN-I HS 227 pg/mL Invalid Interpretation Code 3.0-54.0 [facility] Comment on above: Order Comment: Comme nts: SPECIMEN #2'TROP' Serial specimen #1, #2 or #3: 2 Result Comment: Crit ical Result(s) Called at: 18:22:28 02/24/2024 by: TORRIE TO DRU KAPOOR. Results read back by same. Please Note: New Test Units and Gender Specific Reference Ranges. For more information see Policy Stat Procedure [place] High Sensitivity Troponin (TNIH) and attachments. Performed By: #### L 501.4020 ####[facility] [address] [place], [address] TROPONIN-I HS 411 pg/mL Invalid Interpretation Code 3.0-54.0 [facility] Comment on above: Order Comment: 'TROP ' Serial specimen #1, #2 or #3: 1 Result Comment: Crit ical Result(s) Called at: 15:41:58 02/24/2024 by: TORRIE BECK. Results read back by same. Please Note: New Test Units and Gender Specific Reference Ranges. For more information see Policy Stat Procedure [place] High Sensitivity Troponin (TNIH) and attachments. Performed By: #### L 503.6005, L501.4020 ####[facility] [address] [place], [address] Lactic Acidon 02-24-2024 Lactate [Moles/Vol] 1.0 mmol/L Normal 0.4-1.9 [facility] Comment on above: Order Comment: Y Performed By: #### L 503.6005, L501.4020 ####[facility] [address] [place], [address] Partial Thromboplast Timeon 02-24-2024 aPTT Coag (Bld) [Time] 26.8 s Normal 24.1-36.2 [facility] Comment on above: Performed By: #### L 300.4310, L300.3900 ####[facility] [address] [place], [address] Prothrombin Time w/INRon INR Coag (PPP) [Relative time] 1.2 {INR} Normal [facility] Comment on above: Performed By: #### L 300.4310, L300.3900 ####[facility] [address] [place], [address] PT Coag (PPP) [Time] 14.8 s Normal 11.7-14.9 [facility] Comment on above: Performed By: #### L 300.4310, L300.3900 ####[facility] [address] [place], [address] Shoulder min 2 Viewson 02-23 Shoulder min 2 Views Normal [facility] Urinalysis, Completeon 02-23 AMORPHOUS 2+ Normal [facility] Comment on above: Order Comment: RASHID TER SPECIMEN Performed By: #### L 400.0001 ####[facility] [address] [place], [address] BACTERIA 3+ /hpf Normal None Seen [facility] Comment on above: Order Comment: RASHID TER SPECIMEN Performed By: #### L 400.0001 ####[facility] [address] [place], [address] EPI,SQUAMOUS 0-5 SEEN Normal 5-10 [facility] Comment on above: Order Comment: RASHID TER SPECIMEN Performed By: #### L 400.0001 ####[facility] [address] [place], [address] Mucus Ql (Urine sed) 1+ /hpf Normal [facility] Comment on above: Order Comment: RASHID TER SPECIMEN Performed By: #### L 400.0001 ####[facility] [address] [place], [address] CAST,HYALINE 10-25 SEEN Normal 0-5 [facility] Comment on above: Order Comment: RASHID TER SPECIMEN Performed By: #### L 400.0001 ####[facility] [address] [place], [address] WBC 0-5 SEEN Normal 0-5 [facility] Comment on above: Order Comment: RASHID TER SPECIMEN Performed By: #### L 400.0001 ####[facility] [address] [place], [address] RBC 0 SEEN Normal 0-5 [facility] Comment on above: Order Comment: RASHID TER SPECIMEN Performed By: #### L 400.0001 ####[facility] [address] [place], [address] CNPNon 02-23-2024 [facility] Telephone (INTMWS) SIA ABDUL ([id number]) 1980 F Date Time Provider Department 02/23/24 MARILEE THAKUR INTWS During your visit today, we recorded the following information about you: Pamela Singh LPN 02/23/2024 10:14 AM Signed Leia with [facility], PT calling. Pt out of the hospital last week and is in need of PT in home. Did re-evaluation and asking for verbal orders to continue PT in home. DX acute, chronic systolic heart failure and kidney injury. Please advise Leia with a verbal orders. JORDAN Boston Joy, APRN.[employer] 02/23/2024 11:37 AM Signed Ok with therapy order Thank you Mika Kaplan APRN.María Mchugh MA 02/23/2024 2:30 PM Signed Leia notified. Allergies As of Date: 02/23/2024 Noted Allergy Reaction BEE STING 02/28/2023 10 - Anaphylaxis DILANTIN (PHENYTOIN SODIUM EXTEND*01/28/2006 Date Reviewed: 02/16/2024 Reviewed by: Lacie Reyes LPN - Fully Assessed Reason for Visit: [facility], verbal order [Other] Prescriptions as of 02/23/2024 [...] 1 tablet by mouth once daily. - Ogidu-1-FUV-EPA-Fish Oil 1,000 mg (120 mg-180 mg) cap [...] ank*12/04/2009 12/13/2013 (more content not included)... Normal [facility] Basic Metabolic Profile (BMP )on 02-20-2024 BUN Normal -18 [facility] Comment on above: Result Comment: Canc elled via OM: Order cancelled - Patient discharged Performed By: #### L 500.2500 ####[facility] [address] [facility] [address] BUN/CRE Normal 10-20 [facility] Comment on above: Result Comment: Canc elled via OM: Order cancelled - Patient discharged Performed By: #### L 500.2500 ####[facility] [address] [place], [address] CA,Total Normal 8.5-10.1 [facility] Comment on above: Result Comment: Canc elled via OM: Order cancelled - Patient discharged Performed By: #### L 500.2500 ####[facility] [address] [place], [address] CL Normal 98-107 [facility] Comment on above: Result Comment: Canc elled via OM: Order cancelled - Patient discharged Performed By: #### L 500.2500 ####[facility] [address] [facility] [address] CO2 Normal 21.0-32.0 [facility] Comment on above: Result Comment: Canc elled via OM: Order cancelled - Patient discharged Performed By: #### L 500.2500 ####[facility] [address] [place], [address] CREAT,SERUM Normal 0.55-1.02 [facility] Comment on above: Result Comment: Canc elled via OM: Order cancelled - Patient discharged Performed By: #### L 500.2500 ####[facility] [address] [place], [address] EST GFR Normal >60 [facility] Comment on above: Result Comment: Canc elled via OM: Order cancelled - Patient discharged Performed By: #### L 500.2500 ####[facility] [address] [place], [address] EST GFR - AA Normal >60 [facility] Comment on above: Result Comment: Canc elled via OM: Order cancelled - Patient discharged Performed By: #### L 500.2500 ####[facility] [address] [place], [address] GAP Normal 5-15 [facility] Comment on above: Result Comment: Canc elled via OM: Order cancelled - Patient discharged Performed By: #### L 500.2500 ####[facility] [address] [place], [address] GLU Normal 74-106 [facility] Comment on above: Result Comment: Canc elled via OM: Order cancelled - Patient discharged Performed By: #### L 500.2500 ####[facility] [address] [place], [address] Potassium Normal 3.5-5.1 [facility] Comment on above: Result Comment: Canc elled via OM: Order cancelled - Patient discharged Performed By: #### L 500.2500 ####[facility] [address] [place], [address] Basic Metabolic Profile (BMP) Normal 136-145 [facility] Comment on above: Result Comment: Canc elled via OM: Order cancelled - Patient discharged Performed By: #### L 500.2500 ####[facility] [address] [place], [address] Basic Metabolic Profile (BMP )on 02-19-2024 BUN/CRE 88.1 RATIO High 10-20 [facility] Comment on above: Performed By: #### L 500.2500 ####[facility] [address] [place], [address] CA,Total 9.5 mg/dL Normal 8.5-10.1 [facility] Comment on above: Performed By: #### L 500.2500 ####[facility] [address] [place], [address] Chloride [Moles/Vol] 98 mmol/L Normal 98-107 [facility] Comment on above: Performed By: #### L 500.2500 ####[facility] [address] [place], [address] CO2 [Moles/Vol] 35.0 mmol/L High 21.0-32.0 [facility] Comment on above: Performed By: #### L 500.2500 ####[facility] [address] [place], [address] Creatinine [Mass/Vol] 1.35 mg/dL High 0.55-1.02 [facility] Comment on above: Result Comment: The validity of the calculated GFR GFRAA in patients over70 years has not been determined. Clinical correlation isessential. Performed By: #### L 500.2500 ####[facility] [address] [place], [address] ECRCL 69.14 ml/min Normal [facility] Comment on above: Performed By: #### L 500.2500 ####[facility] [address] [place], [address] EST GFR - AA 55 mL/min Low >60 [facility] Comment on above: Result Comment: Afri can Japanese GFR Calc Performed By: #### L 500.2500 ####[facility] [address] [place], [address] GAP 5 Normal 5-15 [facility] Comment on above: Performed By: #### L 500.2500 ####[facility] [address] [place], [address] GFR/1.73 sq M.predicted among non-blacks MDRD (S/P/Bld) [Vol rate/Area] 46 mL/min/{1.73_m2} Low >60 [facility] Comment on above: Result Comment: Non- GFR Calc Performed By: #### L 500.2500 ####[facility] [address] [place], [address] Glucose [Mass/Vol] 127 mg/dL High 74-106 [facility] Comment on above: Result Comment: Fast ing Glucose result greater than or equal to 126 mg/dLsuggests DIABETES MELLITUS per A.D.A. criteria. Performed By: #### L 500.2500 ####[facility] [address] [place], [address] Potassium [Moles/Vol] 4.1 mmol/L Normal 3.5-5.1 [facility] Comment on above: Performed By: #### L 500.2500 ####[facility] [address] [place], [address] Sodium [Moles/Vol] 138 mmol/L Normal 136-145 [facility] Comment on above: Performed By: #### L 500.2500 ####[facility] [address] [place], [address] Urea nitrogen [Mass/Vol] 119 mg/dL Invalid Interpretation Code 7-18 [facility] Comment on above: Result Comment: Crit ical Result(s) Called at: 11:15:04 02/19/2024 by: Jean Marks. Results read back by same. Performed By: #### L 500.2500 ####[facility] [address] [place], [address] Basic Metabolic Profile (BMP )on 02-18-2024 BUN/CRE 84.7 RATIO High 10-20 [facility] Comment on above: Performed By: #### L 100.0500, L500.2500 ####[facility] [address] [place], [address] CA,Total 8.3 mg/dL Low 8.5-10.1 [facility] Comment on above: Performed By: #### L 100.0500, L500.2500 ####[facility] [address] [place], [address] Chloride [Moles/Vol] 99 mmol/L Normal 98-107 [facility] Comment on above: Performed By: #### L 100.0500, L500.2500 ####[facility] [address] [place], [address] CO2 [Moles/Vol] 35.0 mmol/L High 21.0-32.0 [facility] Comment on above: Performed By: #### L 100.0500, L500.2500 ####[facility] [address] [place], [address] Creatinine [Mass/Vol] 1.57 mg/dL High 0.55-1.02 [facility] Comment on above: Result Comment: The validity of the calculated GFR GFRAA in patients over70 years has not been determined. Clinical correlation isessential. Performed By: #### L 100.0500, L500.2500 ####[facility] [address] [place], [address] ECRCL 59.45 ml/min Normal [facility] Comment on above: Performed By: #### L 100.0500, L500.2500 ####[facility] [address] [place], [address] EST GFR - AA 47 mL/min Low >60 [facility] Comment on above: Result Comment: Afri can Japanese GFR Calc Performed By: #### L 100.0500, L500.2500 ####[facility] [address] [place], [address] GAP 5 Normal 5-15 [facility] Comment on above: Performed By: #### L 100.0500, L500.2500 ####[facility] [address] [place], [address] GFR/1.73 sq M.predicted among non-blacks MDRD (S/P/Bld) [Vol rate/Area] 39 mL/min/{1.73_m2} Low >60 [facility] Comment on above: Result Comment: Non- GFR Calc Performed By: #### L 100.0500, L500.2500 ####[facility] [address] [place], [address] Glucose [Mass/Vol] 106 mg/dL Normal 74-106 [facility] Comment on above: Result Comment: Fast ing Glucose result from 100 to 125 mg/dLsuggests IMPAIRED HOMEOSTASIS per A.D.A. criteria. Performed By: #### L 100.0500, L500.2500 ####[facility] [address] [place], [address] Potassium [Moles/Vol] 5.4 mmol/L High 3.5-5.1 [facility] Comment on above: Result Comment: Mode rate Hemolysis, Result may be falsely increased. Performed By: #### L 100.0500, L500.2500 ####[facility] [address] [place], [address] Sodium [Moles/Vol] 138 mmol/L Normal 136-145 [facility] Comment on above: Performed By: #### L 100.0500, L500.2500 ####[facility] [address] [place], [address] Urea nitrogen [Mass/Vol] 133 mg/dL Invalid Interpretation Code -18 [facility] Comment on above: Result Comment: Crit ical Result(s) Called at: 09:50:26 02/18/2024 by: Ihsan Hernandez. Results read back by same. Performed By: #### L 100.0500, L500.2500 ####[facility] [address] [place], [address] CBC W/Diff, Automatedon 02-07 PATH REV Reviewed Normal [facility] Comment on above: Result Comment: Neut rophilic leukocytosis.Macrocytic anemia.Sunday Keller M.D. 02/18/24 AMENDED REPORT 02/18/24 1357 PATH REV previously reported as: July pj Performed By: #### L 503.6005, L100.0100, L500.2500, L503.6620 ####[facility] [address] [place], [address] CBC-Complete Blood Cnt No Di ffon 02-18-2024 Erythrocyte distribution width (RBC) [Ratio] 13.6 % Normal 11.6-14.6 [facility] Comment on above: Performed By: #### L 100.0500, L500.2500 ####[facility] [address] [place], [address] Hematocrit (Bld) [Volume fraction] 31.6 % Low 37-47 [facility] Comment on above: Performed By: #### L 100.0500, L500.2500 ####[facility] [address] [place], [address] Hemoglobin (Bld) [Mass/Vol] 9.7 g/dL Low 12.0-15.0 [facility] Comment on above: Performed By: #### L 100.0500, L500.2500 ####[facility] [address] [place], [address] MCH (RBC) [Entitic mass] 31.4 pg Normal 27.0-32.0 [facility] Comment on above: Performed By: #### L 100.0500, L500.2500 ####[facility] [address] [place], [address] MCHC (RBC) [Mass/Vol] 30.7 g/dL Low 32-36 [facility] Comment on above: Performed By: #### L 100.0500, L500.2500 ####[facility] [address] [place], [address] MCV (RBC) [Entitic vol] 102.3 fL High 81-99 [facility] Comment on above: Performed By: #### L 100.0500, L500.2500 ####[facility] [address] [place], [address] Platelet mean volume (Bld) [Entitic vol] 10.6 fL Normal 6.2-12.0 [facility] Comment on above: Performed By: #### L 100.0500, L500.2500 ####[facility] [address] [place], [address] Platelets (Bld) [#/Vol] 181 10*3/uL Normal 150-450 [facility] Comment on above: Performed By: #### L 100.0500, L500.2500 ####[facility] [address] [place], [address] RBC (Bld) [#/Vol] 3.09 10*6/uL Low 4.2-5.4 [facility] Comment on above: Performed By: #### L 100.0500, L500.2500 ####[facility] [address] [place], [address] RDW SD 51.6 fl High 35.1-43.9 [facility] Comment on above: Performed By: #### L 100.0500, L500.2500 ####[facility] [address] [place], [address] WBC (Bld) [#/Vol] 11.4 10*3/uL High 4.4-11.0 [facility] Comment on above: Performed By: #### L 100.0500, L500.2500 ####[facility] [address] [place], [address] 12 Lead EKGon 02-17-2024 12 Lead EKG Normal [facility] BNP,B-Type NATRIURETIC PEPTI Christa 02-17-2024 Natriuretic peptide B (Bld) [Mass/Vol] 25.1 pg/mL Normal 0-100 [facility] Comment on above: Performed By: #### L 503.6005, L100.0100, L500.2500, L503.6620 ####[facility] [address] [place], [address] Basic Metabolic Profile (BMP )on 02-17-2024 BUN/CRE 73.4 RATIO High 10-20 [facility] Comment on above: Performed By: #### L 503.6005, L100.0100, L500.2500, L503.6620 ####[facility] [address] [place], [address] CA,Total 9.2 mg/dL Normal 8.5-10.1 [facility] Comment on above: Performed By: #### L 503.6005, L100.0100, L500.2500, L503.6620 ####[facility] [address] [place], [address] Chloride [Moles/Vol] 92 mmol/L Low 98-107 [facility] Comment on above: Performed By: #### L 503.6005, L100.0100, L500.2500, L503.6620 ####[facility] [address] [place], [address] CO2 [Moles/Vol] 37.0 mmol/L High 21.0-32.0 [facility] Comment on above: Performed By: #### L 503.6005, L100.0100, L500.2500, L503.6620 ####[facility] [address] [place], [address] Creatinine [Mass/Vol] 1.99 mg/dL High 0.55-1.02 [facility] Comment on above: Result Comment: The validity of the calculated GFR GFRAA in patients over70 years has not been determined. Clinical correlation isessential. Performed By: #### L 503.6005, L100.0100, L500.2500, L503.6620 ####[facility] [address] [place], [address] ECRCL 47.49 ml/min Normal [facility] Comment on above: Performed By: #### L 503.6005, L100.0100, L500.2500, L503.6620 ####[facility] [address] [place], [address] EST GFR - AA 35 mL/min Low >60 [facility] Comment on above: Result Comment: Afri can Japanese GFR Calc Performed By: #### L 503.6005, L100.0100, L500.2500, L503.6620 ####[facility] [address] [place], [address] GAP 5 Normal 5-15 [facility] Comment on above: Performed By: #### L 503.6005, L100.0100, L500.2500, L503.6620 ####[facility] [address] [place], [address] GFR/1.73 sq M.predicted among non-blacks MDRD (S/P/Bld) [Vol rate/Area] 29 mL/min/{1.73_m2} Low >60 [facility] Comment on above: Result Comment: Non- GFR Calc Performed By: #### L 503.6005, L100.0100, L500.2500, L503.6620 ####[facility] [address] [place], [address] Glucose [Mass/Vol] 102 mg/dL Normal 74-106 [facility] Comment on above: Result Comment: Fast ing Glucose result from 100 to 125 mg/dLsuggests IMPAIRED HOMEOSTASIS per A.D.A. criteria. Performed By: #### L 503.6005, L100.0100, L500.2500, L503.6620 ####[facility] [address] [place], [address] Potassium [Moles/Vol] 4.9 mmol/L Normal 3.5-5.1 [facility] Comment on above: Performed By: #### L 503.6005, L100.0100, L500.2500, L503.6620 ####[facility] [address] [place], [address] Sodium [Moles/Vol] 134 mmol/L Low 136-145 [facility] Comment on above: Performed By: #### L 503.6005, L100.0100, L500.2500, L503.6620 ####[facility] [address] [place], [address] Urea nitrogen [Mass/Vol] 146 mg/dL Invalid Interpretation Code 7-18 [facility] Comment on above: Result Comment: Crit ical Result(s) Called at: 14:46:52 02/17/2024 by: Ihsan Sawyer Results read back by same. Performed By: #### L 503.6005, L100.0100, L500.2500, L503.6620 ####[facility] [address] [place], [address] Bedside Glucoseon 02-17-2024 FINGERSTICK GLU 112 mg/dL High 74-106 [facility] Comment on above: Result Comment: ETHAN PRITCHETT OF PATIENT CARE PER NURSING PROTOCOL Performed By: #### L 501.080 ####[facility] [address] [place], [address] Chest 1 View (Portable)on Chest 1 View (Portable) Normal [facility] Emergency Department Summary on 02-17-2024 Emergency Department Summary Normal [facility] H AND P Exam - Hospitaliston 02-17-2024 H&P Exam - Hospitalist Normal [facility] Lactic Acidon 02-17-2024 Lactate [Moles/Vol] 0.6 mmol/L Normal 0.4-1.9 [facility] Comment on above: Order Comment: Y Performed By: #### L 503.6005, L100.0100, L500.2500, L503.6654 ####[facility] [address] [place], [address] CNOVon 02-16-2024 CNOV Office Visit (INTMWS ) CHANTELLSIA Grimm ([id number]) 1980 F Date Time Provider Department 02/16/24 [...] 50 mcg/ac (more content not included)... Normal [facility] CBC W Auto Differential pane l (Bld)on 02-13-2024 Basophils (Bld) [#/Vol] 0.05 10*3/uL Normal <0.11 [facility] Comment on above: Order Comment: Seema silva Type: BLOOD SPECIMEN Ordering Facility: [facility] Address: [address] [place] [address] Performed By: #### 5 7021-8 #### [facility] CLIA [id number] [address] [place] [address] [place] [address] [place] Basophils/100 WBC (Bld) 0.4 % Normal [facility] Comment on above: Order Comment: Seema silva Type: BLOOD SPECIMEN Ordering Facility: [facility] Address: [address] [place] [address] Performed By: #### 5 7021-8 #### [facility] CLIA [id number] [address] [place] [address] [place] Differential cell count method Nom (Bld) Auto Normal [facility] Comment on above: Order Comment: Speci men Type: BLOOD SPECIMEN Ordering Facility: [facility] Address: [address] [place] [address] Performed By: #### 5 7021-8 #### [facility] CLIA [id number] [address] [place] [address] [place] Eosinophils (Bld) [#/Vol] 0.32 10*3/uL Normal <0.46 [facility] Comment on above: Order Comment: Speci men Type: BLOOD SPECIMEN Ordering Facility: [facility] Address: [address] [place] [address] Performed By: #### 5 7021-8 #### [facility] CLIA [id number] [address] [place] [address] [place] Eosinophils/100 WBC (Bld) 2.6 % Normal [facility] Comment on above: Order Comment: Speci men Type: BLOOD SPECIMEN Ordering Facility: [facility] Address: [address] [place] [address] Performed By: #### 5 7021-8 #### [facility] CLIA [id number] [address] [place] [address] [place] Erythrocyte distribution width (RBC) [Ratio] 13.5 % Normal 11.5-15.0 [facility] Comment on above: Order Comment: Speci men Type: BLOOD SPECIMEN Ordering Facility: [facility] Address: [address] [place] [address] Performed By: #### 5 7021-8 #### [facility] CLIA [id number] [address] [place] [address] [place] Hematocrit (Bld) [Volume fraction] 38.7 % Normal 36.0-46.0 [facility] Comment on above: Order Comment: Speci men Type: BLOOD SPECIMEN Ordering Facility: [facility] Address: [address] [place] [address] Performed By: #### 5 7021-8 #### [facility] CLIA [id number] [address] [place] [address] [place] Hemoglobin (Bld) [Mass/Vol] 12.1 g/dL Normal 11.5-15.5 [facility] Comment on above: Order Comment: Speci men Type: BLOOD SPECIMEN Ordering Facility: [facility] Address: [address] [place] [address] Performed By: #### 5 7021-8 #### [facility] CLIA [id number] [address] [place] [address] [place] Immature granulocytes (Bld) [#/Vol] 0.07 10*3/uL Normal <0.10 [facility] Comment on above: Order Comment: Speci men Type: BLOOD SPECIMEN Ordering Facility: [facility] Address: [address] [place] [address] Performed By: #### 5 7021-8 #### [facility] CLIA [id number] [address] [place] [address] [place] Immature granulocytes/100 WBC (Bld) 0.6 % Normal [facility] Comment on above: Order Comment: Speci men Type: BLOOD SPECIMEN Ordering Facility: [facility] Address: [address] [place] [address] Performed By: #### 5 7021-8 #### [facility] CLIA [id number] [address] [place] [address] [place] Lymphocytes (Bld) [#/Vol] 2.11 10*3/uL Normal 1.00-4.00 [facility] Comment on above: Order Comment: Speci men Type: BLOOD SPECIMEN Ordering Facility: [facility] Address: [address] [place] [address] Performed By: #### 5 7021-8 #### [facility] CLIA [id number] [address] [place] [address] [place] Lymphocytes/100 WBC (Bld) 17.3 % Normal [facility] Comment on above: Order Comment: Speci men Type: BLOOD SPECIMEN Ordering Facility: [facility] Address: [address] [place] [address] Performed By: #### 5 7021-8 #### [facility] CLIA [id number] [address] [place] [address] [place] MCH (RBC) [Entitic mass] 32.2 pg Normal 26.0-34.0 [facility] Comment on above: Order Comment: Speci men Type: BLOOD SPECIMEN Ordering Facility: [facility] Address: [address] [place] [address] Performed By: #### 5 7021-8 #### [facility] CLIA [id number] [address] [place] [address] [place] MCHC (RBC) [Mass/Vol] 31.3 g/dL Normal 30.5-36.0 [facility] Comment on above: Order Comment: Speci men Type: BLOOD SPECIMEN Ordering Facility: [facility] Address: [address] [place] [address] Performed By: #### 5 7021-8 #### [facility] CLIA [id number] [address] [place] [address] [place] MCV (RBC) [Entitic vol] 102.9 fL High 80.0-100.0 [facility] Comment on above: Order Comment: Speci men Type: BLOOD SPECIMEN Ordering Facility: [facility] Address: [address] [place] [address] Performed By: #### 5 7021-8 #### [facility] CLIA [id number] [address] [place], [place] [address] [place] Monocytes (Bld) [#/Vol] 1.39 10*3/uL High <0.87 [facility] Comment on above: Order Comment: Speci men Type: BLOOD SPECIMEN Ordering Facility: [facility] Address: [address] [place] [address] Performed By: #### 5 7021-8 #### [facility] CLIA [id number] [address] [place] [address] [place] Monocytes/100 WBC (Bld) 11.4 % Normal [facility] Comment on above: Order Comment: Speci men Type: BLOOD SPECIMEN Ordering Facility: [facility] Address: [address] [place] [address] Performed By: #### 5 7021-8 #### [facility] CLIA [id number] [address] [place] [address] [place] Neutrophils (Bld) [#/Vol] 8.25 10*3/uL High 1.45-7.50 [facility] Comment on above: Order Comment: Speci men Type: BLOOD SPECIMEN Ordering Facility: [facility] Address: [address] [place] [address] Performed By: #### 5 7021-8 #### [facility] CLIA [id number] [address] [place] [address] [place] Neutrophils/100 WBC (Bld) 67.7 % Normal [facility] Comment on above: Order Comment: Speci men Type: BLOOD SPECIMEN Ordering Facility: [facility] Address: [address] [place] [address] Performed By: #### 5 7021-8 #### [facility] CLIA [id number] [address] [place] [address] [place] Nucleated RBC (Bld) [#/Vol] 10*3/uL Normal <0.01 [facility] Comment on above: Order Comment: Speci men Type: BLOOD SPECIMEN Ordering Facility: [facility] Address: [address] [place] [address] Performed By: #### 5 7021-8 #### [facility] CLIA [id number] [address] [place] [address] [place] Nucleated RBC/100 WBC (Bld) [Ratio] 0.0 /100 WBC Normal [facility] Comment on above: Order Comment: Speci men Type: BLOOD SPECIMEN Ordering Facility: [facility] Address: [address] [place] [address] Performed By: #### 5 7021-8 #### [facility] CLIA [id number] [address] [place] [address] [place] Platelet mean volume (Bld) [Entitic vol] 11.9 fL Normal 9.0-12.7 [facility] Comment on above: Order Comment: Speci men Type: BLOOD SPECIMEN Ordering Facility: [facility] Address: [address] [place] [address] Performed By: #### 5 7021-8 #### [facility] CLIA [id number] [address] [place] [address] [place] Platelets (Bld) [#/Vol] 207 10*3/uL Normal 150-400 [facility] Comment on above: Order Comment: Speci men Type: BLOOD SPECIMEN Ordering Facility: [facility] Address: [address] [place] [address] Performed By: #### 5 7021-8 #### [facility] CLIA [id number] [address] [place] [address] [place] RBC (Bld) [#/Vol] 3.76 10*6/uL Low 3.90-5.20 [facility] Comment on above: Order Comment: Speci men Type: BLOOD SPECIMEN Ordering Facility: [facility] Address: [address] [place] [address] Performed By: #### 5 7021-8 #### [facility] CLIA [id number] [address] [place] [address] [place] WBC (Bld) [#/Vol] 12.19 10*3/uL High 3.70-11.00 [facility] Comment on above: Order Comment: Speci men Type: BLOOD SPECIMEN Ordering Facility: [facility] Address: [address] [place] [address] Performed By: #### 5 7021-8 #### [facility] CLIA [id number] [address] [place] [address] [place] Comprehensive metabolic 2000 panelon 02-13-2024 Albumin [Mass/Vol] 4.2 g/dL Normal 3.9-4.9 [facility] Comment on above: Order Comment: Speci men Type: BLOOD SPECIMENOrdering Facility: [facility] Address: [address] [place] [address] Performed By: #### 1 9123-9, 25504-8 ####[facility] [id number] [place] [address] [place] ALP [Catalytic activity/Vol] 88 U/L Normal 34-123 [facility] Comment on above: Order Comment: Speci men Type: BLOOD SPECIMENOrdering Facility: [facility] Address: [address] [place] [address] Performed By: #### 1 9123-9, 92328-5 ####[facility] [id number] [place] [address] [place] ALT [Catalytic activity/Vol] 23 U/L Normal 7-38 [facility] Comment on above: Order Comment: Speci men Type: BLOOD SPECIMENOrdering Facility: [facility] Address: [address] [place] [address] Performed By: #### 1 9123-9, 88903-5 ####[facility] [id number] [place] [address] [place] Anion gap [Moles/Vol] 15 mmol/L Normal 8-15 [facility] Comment on above: Order Comment: Speci men Type: BLOOD SPECIMENOrdering Facility: [facility] Address: [address] [place] [address] Performed By: #### 1 9123-9, ####[facility] [id number] [place] [address] [place] AST [Catalytic activity/Vol] 23 U/L Normal 13-35 [facility] Comment on above: Order Comment: Speci men Type: BLOOD SPECIMENOrdering Facility: [facility] Address: [address] [place] [address] Performed By: #### 1 9123-9, ####[facility] [id number] [place] [address] [place] Bilirubin [Mass/Vol] 0.3 mg/dL Normal 0.2-1.3 [facility] Comment on above: Order Comment: Speci men Type: BLOOD SPECIMENOrdering Facility: [facility] Address: [address] [place] [address] Performed By: #### 1 9123-9, ####[facility] [id number] [place] [address] [place] Calcium [Mass/Vol] 9.1 mg/dL Normal 8.5-10.2 [facility] Comment on above: Order Comment: Speci men Type: BLOOD SPECIMENOrdering Facility: [facility] Address: [address] [place] [address] Performed By: #### 1 9123-9, ####[facility] [id number] [place] [address] [place] Chloride [Moles/Vol] 91 mmol/L Low 98-107 [facility] Comment on above: Order Comment: Speci men Type: BLOOD SPECIMENOrdering Facility: [facility] Address: [address] [place] [address] Performed By: #### 1 9123-9, 72625-4 ####[facility] [id number] [place] [address] [place] CO2 [Moles/Vol] 30 mmol/L Normal 22-30 [facility] Comment on above: Order Comment: Speci men Type: BLOOD SPECIMENOrdering Facility: [facility] Address: [address] [place] [address] Performed By: #### 1 9123-9, 26252-9 ####[facility] [id number] [place] [address] [place] Creatinine [Mass/Vol] 1.28 mg/dL High 0.58-0.96 [facility] Comment on above: Order Comment: Speci men Type: BLOOD SPECIMENOrdering Facility: [facility] Address: [address] [place] [address] Performed By: #### 1 9123-9, 23746-4 ####[facility] [id number] [place] [address] [place] Creatinine and Glomerular filtration rate.predicted panel (S/P/Bld) 54 mL/min/1.73m??? Low >=60 [facility] Comment on above: Order Comment: Speci men Type: BLOOD SPECIMENOrdering Facility: [facility] Address: [address] [place] [address] Result Comment: Roby mated Glomerular Filtration Rate [...] actual GFR. Performed By: #### 1 9123-9, 68753-6 ####[facility] [id number] [place] [address] [place] Glucose [Mass/Vol] 96 mg/dL Normal 74-99 [facility] Comment on above: Order Comment: Speci men Type: BLOOD SPECIMENOrdering Facility: [facility] Address: [address] [place] [address] Result Comment: The [place] Diabetes Association (ADA) provides guidance for cutoff [...] Standards of Medical Care in Diabetes 2016, [place] Diabetes Association. Diabetes Care. 2016.39(Suppl 1). Performed By: #### 1 9123-9, 32036-5 ####[facility] [id number] [place] [address] [place] Potassium [Moles/Vol] 4.3 mmol/L Normal 3.7-5.1 [facility] Comment on above: Order Comment: Speci men Type: BLOOD SPECIMENOrdering Facility: [facility] Address: [address] [place] [address] Performed By: #### 1 9123-9, 23252-5 ####[facility] [id number] [place] [address] [place] Protein [Mass/Vol] 7.2 g/dL Normal 6.3-8.0 [facility] Comment on above: Order Comment: Speci men Type: BLOOD SPECIMENOrdering Facility: [facility] Address: [address] [place] [address] Performed By: #### 1 9123-9, 71764-0 ####[facility] [id number] [place] [address] [place] Sodium [Moles/Vol] 136 mmol/L Normal 136-144 [facility] Comment on above: Order Comment: Speci men Type: BLOOD SPECIMENOrdering Facility: [facility] Address: [address] [place] [address] Performed By: #### 1 9123-9, 71345-6 ####[facility]IA [id number] [place] [address] [place] Urea nitrogen [Mass/Vol] 106 mg/dL High 7-21 [facility] Comment on above: Order Comment: Speci men Type: BLOOD SPECIMENOrdering Facility: [facility] Address: [address] [place] [address] Performed By: #### 1 9123-9, 20775-7 ####[facility] [id number] [place] [address] [place] Magnesium SerPl-mCncon 02-12 Magnesium [Mass/Vol] 2.9 mg/dL High 1.7-2.3 [facility] Comment on above: Order Comment: Speci men Type: BLOOD SPECIMENOrdering Facility: [facility] Address: [address] [place] [address] Performed By: #### 1 9123-9, 65827-4 ####[facility] LABIA [id number] [place] [address] [place] CNPSachi 02-10-2024 CNPN Telephone (INTMWS) SIA ABDUL ([id number]) 1980 F Date Time Provider Department 02/10/24 MARILEE THAKUR During your visit today, we recorded the following information about you: Pamela Singh LPN 02/10/2024 11:09 AM Signed Leia with [facility], PT calling to see if [...] LPN - Fully Assessed Reason for Visit: [facility]-verbal orders [Other] Prescriptions as of [...] 1 tablet by mouth once daily. - Pawok-4-EFL-EPA-Fish Oil 1,000 mg (120 mg-180 mg) cap [...] Morbid obesi (more content not included)... Normal [facility] CNOVon 02-06-2024 CNOV Office Visit (INTMWS ) SIA ABDUL ([id number]) 1980 F Date Time Provider Department 02/06/24 11:40 AM MARILEE THAKUR INTMWS During your visit today, we recorded the following information about you: Pulse Blood pressure Weight 65/minute 112/77 130.2 kg Marilee Thakur MD 02/06/2024 2:56 PM Signed Reason for Visit Patient presents with: Hospital F/U: [facility] 01/26/24 dx CHF Sia Abdul is a [...] calcifications. 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 She is on toresemide, I [...] use: No (more content not included)... Normal [facility] Tal 02-03-2024 OBEDN Telephone (INTMWS) SIA ABDUL ([id number]) 1980 F Date Time Provider Department 02/03/24 MARILEE THAKUR During your visit today, we recorded the following information about you: Lillie Marshall RN 02/03/2024 1:35 PM Signed Clarence from [facility] calls asking if provider will continue to sign orders for intermediate, physical therapy, and occupational therapy. RODRÍGUEZ Carnes Chitra, MD 02/03/2024 5:06 PM Signed Yes will sign Marilee Lassiter MD, Rachel L, MA 02/04/2024 8:56 AM Signed Clarence at [facility] notified. Aaliyah Gonzalez MA Allergies [...] 1 tablet by mouth once daily. - Fauqs-9-RSD-EPA-Fish Oil 1,000 mg (120 mg-180 mg) cap [...] - MEDICAL SUPPLY Lymphedema massage therapy - IRIADA 0.35 mg tablet - Gauze Bandage 2 [...] BMI 45.0-49. (more content not included)... Normal [facility] Basic Metabolic Profile (BMP )on 01-27-2024 BUN Normal 09-24 [facility] Comment on above: Result Comment: Canc elled via OM: Order cancelled - Patient discharged Performed By: #### L 500.2500 ####[facility] [address] [place], [address] BUN/CRE Normal 12-27 [facility] Comment on above: Result Comment: Canc elled via OM: Order cancelled - Patient discharged Performed By: #### L 500.2500 ####[facility] [address] [place], [address] CA,Total Normal 8.5-10.1 [facility] Comment on above: Result Comment: Canc elled via OM: Order cancelled - Patient discharged Performed By: #### L 500.2500 ####[facility] [address] [place], [address] CL Normal 98-107 [facility] Comment on above: Result Comment: Canc elled via OM: Order cancelled - Patient discharged Performed By: #### L 500.2500 ####[facility] [address] [place], [address] CO2 Normal 21.0-32.0 [facility] Comment on above: Result Comment: Canc elled via OM: Order cancelled - Patient discharged Performed By: #### L 500.2500 ####[facility] [address] [place], [address] CREAT,SERUM Normal 0.55-1.02 [facility] Comment on above: Result Comment: Canc elled via OM: Order cancelled - Patient discharged Performed By: #### L 500.2500 ####[facility] [address] [place], [address] EST GFR Normal >60 [facility] Comment on above: Result Comment: Canc elled via OM: Order cancelled - Patient discharged Performed By: #### L 500.2500 ####[facility] [address] [place], [address] EST GFR - AA Normal >60 [facility] Comment on above: Result Comment: Canc elled via OM: Order cancelled - Patient discharged Performed By: #### L 500.2500 ####[facility] [address] [place], [address] GAP Normal 5-15 [facility] Comment on above: Result Comment: Canc elled via OM: Order cancelled - Patient discharged Performed By: #### L 500.2500 ####[facility] [address] [place], [address] GLU Normal 74-106 [facility] Comment on above: Result Comment: Canc elled via OM: Order cancelled - Patient discharged Performed By: #### L 500.2500 ####[facility] [address] [place], [address] Potassium Normal 3.5-5.1 [facility] Comment on above: Result Comment: Canc elled via OM: Order cancelled - Patient discharged Performed By: #### L 500.2500 ####[facility] [address] [place], [address] Basic Metabolic Profile (BMP) Normal 136-145 [facility] Comment on above: Result Comment: Canc elled via OM: Order cancelled - Patient discharged Performed By: #### L 500.2500 ####[facility] [address] [place], [address] TRANSTHORACIC ECHO (TTE) COM [facility] 01-27-2024 TRANSTHORACIC ECHO (TTE) COMPLETE [facility] [address], [address], [place] [address] TRANSTHORACIC ECHOCARDIOGRAM REPORT Patient Name: SIA ABDUL Reading Physician: [id number] Goodman MD Study Date: 01/27/2024 Ordering Provider: [id number] ISI GOODMAN MRN/PID: [id number] Fellow: Nurse: Date of /Age: 406/30/1980 Crinkling Machine Operator: Rafia john RDCS Gender assigned at F Additional Staff: : Height: 142.24 cm Admit Date: Weight: 133.36 kg Admission Status: Outpatient BSA / BMI: 2.09 m2 / 65.91 kg/m2 Blood Pressure: 109/74 mmHg Department Location: Study Type: TRANSTHORACIC ECHO (TTE) COMPLETE Diagnosis/ICD: Other forms of dyspnea-R06.09; Localized edema-R60.0 Indication: MARINO, Edema CPT Code: Echo Complete w Full Doppler-61954 Study Detail: The following Echo studies were [...] LA Area A2C: 21.1 cm2 LA [place] A4C: 6.4 cm LA [place] A2C: 6.4 cm RA VOLUME BY A/L [...] Dimensionless Index: 0.69 (more content not included)... [facility] US Heart Transthoracicon Aortic Valve Area by Continuity of Peak Velocity 1.65 cm2 [facility] Work Phone: [phone] Aortic Valve Area by Continuity of VTI 1.56 cm2 [facility] Work Phone: [phone] AV mn grad 9 mmHg [facility] Work Phone: [phone] AV pk grad 18 mmHg [facility] Work Phone: [phone] AV pk everardo 2.1 m/s [facility] Work Phone: [phone] LA vol index A/L 27.4 ml/m2 [facility] Work Phone: [phone] LV A4C EF 67.7 [facility] Work Phone: [phone] LV EF 63 % [facility] Work Phone: [phone] LVIDd 5 cm [facility] Work Phone: [phone] LVOT diam 1.7 cm [facility] Work Phone: [phone] MV E/A ratio 0.89 [facility] Work Phone: [phone] RV free wall pk S' 14.9 cm/s [facility] Work Phone: [phone] RVSP 41 mmHg [facility] Work Phone: [phone] Tricuspid annular plane systolic excursion 3 cm [facility] Work Phone: [phone] [facility] [address], [address], [place] [address] TRANSTHORACIC ECHOCARDIOGRAM REPORT Patient Name: SAI ABDUL Reading Physician: [id number] Goodman MD Study Date: 01/27/2024 Ordering Provider: [id number] GOODMAN MRN/PID: [id number] Fellow: Nurse: Date of /Age: 406/30/1980 Crinkling Machine Operator: Rafia john KATY Gender assigned at F Additional Staff: : Height: 142.24 cm Admit Date: Weight: 133.36 kg Admission Status: Outpatient BSA / BMI: 2.09 m2 / 65.91 kg/m2 Blood Pressure: 109/74 mmHg Department Location: Study Type: TRANSTHORACIC ECHO (TTE) COMPLETE Diagnosis/ICD: Other forms of dyspnea-R06.09; Localized edema-R60.0 Indication: MARINO, Edema CPT Code: Echo Complete w Full Doppler-83677 Study Detail: The following Echo studies were [...] LA Area A2C: 21.1 cm2 [place] A4C: 6.4 cm LA [place] A2C: 6.4 cm RA VOLUME BY A/L [...] not included)... Isi Blue MD - 01/27/2024 [facility] [address], [address], [place] [address] TRANSTHORACIC ECHOCARDIOGRAM REPORT Patient Name: SIA ABDUL Reading Physician: Ramón Goodman MD Study Date: 01/27/2024 Ordering Provider: Ramón GOODMAN MRN/PID: [id number] Fellow: Nurse: Date of /Age: 406/30/1980 Crinkling Machine Operator: Rafia john RDCS Gender assigned at Additional Staff: : Height: 142.24 cm Admit Date: Weight: 133.36 kg Admission Status: Outpatient BSA / BMI: 2.09 m2 / 65.91 kg/m2 Blood Pressure: 109/74 mmHg Department Location: Study Type: TRANSTHORACIC ECHO (TTE) COMPLETE Diagnosis/ICD: Other forms of dyspnea-R06.09; Localized edema-R60.0 Indication: MARINO, Edema CPT Code: Echo Complete w Full Doppler-33970 Study Detail: The following Echo studies were [...] LA Area A2C: 21.1 cm2 [place] A4C: 6.4 cm LA [place] A2C: 6.4 cm RA VOLUME BY A/L [...] 1.70 cm (1.8- (more content not included)... [facility] Work Phone: [facility] Work Phone: Basic Metabolic Profile (BMP )on 01-26-2024 BUN/CRE 41.1 RATIO High 10-20 [facility] Comment on above: Performed By: #### L 500.2500 ####[facility] [address] [place], [address] CA,Total 9.0 mg/dL Normal 8.5-10.1 [facility] Comment on above: Performed By: #### L 500.2500 ####[facility] [address] [place], [address] Chloride [Moles/Vol] 103 mmol/L Normal 98-107 [facility] Comment on above: Performed By: #### L 500.2500 ####[facility] [address] [place], [address] CO2 [Moles/Vol] 33.0 mmol/L High 21.0-32.0 [facility] Comment on above: Performed By: #### L 500.2500 ####[facility] [address] [place], [address] Creatinine [Mass/Vol] 0.61 mg/dL Normal 0.55-1.02 [facility] Comment on above: Result Comment: The validity of the calculated GFR GFRAA in patients over70 years has not been determined. Clinical correlation isessential. Performed By: #### L 500.2500 ####[facility] [address] [place], [address] ECRCL 158.99 ml/min Normal [facility] Comment on above: Performed By: #### L 500.2500 ####[facility] [address] [place], [address] EST GFR - AA 139 mL/min Normal >60 [facility] Comment on above: Result Comment: Afri can Japanese GFR Calc Performed By: #### L 500.2500 ####[facility] [address] [place], [address] GAP 0 Low 5-15 [facility] Comment on above: Performed By: #### L 500.2500 ####[facility] [address] [place], [address] GFR/1.73 sq M.predicted among non-blacks MDRD (S/P/Bld) [Vol rate/Area] 115 mL/min/{1.73_m2} Normal >60 [facility] Comment on above: Result Comment: Non- GFR Calc Performed By: #### L 500.2500 ####[facility] [address] [place], [address] Glucose [Mass/Vol] 92 mg/dL Normal 74-106 [facility] Comment on above: Performed By: #### L 500.2500 ####[facility] [address] [place], [address] Potassium [Moles/Vol] 4.4 mmol/L Normal 3.5-5.1 [facility] Comment on above: Performed By: #### L 500.2500 ####[facility] [address] [place], [address] Sodium [Moles/Vol] 136 mmol/L Normal 136-145 [facility] Comment on above: Performed By: #### L 500.2500 ####[facility] [address] [place], [address] Urea nitrogen [Mass/Vol] 25 mg/dL High 7-18 [facility] Comment on above: Performed By: #### L 500.2500 ####[facility] [address] [place], [address] Basic Metabolic Profile (BMP )on 01-25-2024 BUN/CRE 37.3 RATIO High 10-20 [facility] Comment on above: Performed By: #### L 500.2500 ####[facility] [address] [place], [address] CA,Total 8.5 mg/dL Normal 8.5-10.1 [facility] Comment on above: Performed By: #### L 500.2500 ####[facility] [address] [place], [address] Chloride [Moles/Vol] 103 mmol/L Normal 98-107 [facility] Comment on above: Performed By: #### L 500.2500 ####[facility] [address] [place], [address] CO2 [Moles/Vol] 33.0 mmol/L High 21.0-32.0 [facility] Comment on above: Performed By: #### L 500.2500 ####[facility] [address] [place], [address] Creatinine [Mass/Vol] 0.64 mg/dL Normal 0.55-1.02 [facility] Comment on above: Result Comment: The validity of the calculated GFR GFRAA in patients over70 years has not been determined. Clinical correlation isessential. Performed By: #### L 500.2500 ####[facility] [address] [place], [address] ECRCL 151.75 ml/min Normal [facility] Comment on above: Performed By: #### L 500.2500 ####[facility] [address] [place], [address] EST GFR - AA 130 mL/min Normal >60 [facility] Comment on above: Result Comment: Afri can Japanese GFR Calc Performed By: #### L 500.2500 ####[facility] [address] [place], [address] GAP 2 Low 5-15 [facility] Comment on above: Performed By: #### L 500.2500 ####[facility] [address] [place], [address] GFR/1.73 sq M.predicted among non-blacks MDRD (S/P/Bld) [Vol rate/Area] 108 mL/min/{1.73_m2} Normal >60 [facility] Comment on above: Result Comment: Non- GFR Calc Performed By: #### L 500.2500 ####[facility] [address] [place], [address] Glucose [Mass/Vol] 113 mg/dL High 74-106 [facility] Comment on above: Result Comment: Fast ing Glucose result from 100 to 125 mg/dLsuggests IMPAIRED HOMEOSTASIS per A.D.A. criteria. Performed By: #### L 500.2500 ####[facility] [address] [place], [address] Potassium [Moles/Vol] 4.2 mmol/L Normal 3.5-5.1 [facility] Comment on above: Performed By: #### L 500.2500 ####[facility] [address] [place], [address] Sodium [Moles/Vol] 139 mmol/L Normal 136-145 [facility] Comment on above: Performed By: #### L 500.2500 ####[facility] [address] [place], [address] Urea nitrogen [Mass/Vol] 24 mg/dL High 7-18 [facility] Comment on above: Performed By: #### L 500.2500 ####[facility] [address] [place], [address] Discharge Instructionon 01-08 Discharge Instruction Normal [facility] BNP,B-Type NATRIURETIC PEPTI Christa 01-23-2024 Natriuretic peptide B (Bld) [Mass/Vol] 38.5 pg/mL Normal 0-100 [facility] Comment on above: Performed By: #### L 100.0100, L503.6620, L501.5200, L500.2500, L501.4020 ####[facility] [address] [place], [address] Basic Metabolic Profile (BMP )on 01-23-2024 BUN/CRE 39.8 RATIO High 10-20 [facility] Comment on above: Order Comment: 'TROP ' Serial specimen #1, #2 or #3: 1 Performed By: #### L 100.0100, L503.6620, L501.5200, L500.2500, L501.4020 ####[facility] [address] [place], [address] CA,Total 8.9 mg/dL Normal 8.5-10.1 [facility] Comment on above: Order Comment: 'TROP ' Serial specimen #1, #2 or #3: 1 Performed By: #### L 100.0100, L503.6620, L501.5200, L500.2500, L501.4020 ####[facility] [address] [place], [address] Chloride [Moles/Vol] 100 mmol/L Normal 98-107 [facility] Comment on above: Order Comment: 'TROP ' Serial specimen #1, #2 or #3: 1 Performed By: #### L 100.0100, L503.6620, L501.5200, L500.2500, L501.4020 ####[facility] [address] [place], [address] CO2 [Moles/Vol] 34.0 mmol/L High 21.0-32.0 [facility] Comment on above: Order Comment: 'TROP ' Serial specimen #1, #2 or #3: 1 Performed By: #### L 100.0100, L503.6620, L501.5200, L500.2500, L501.4020 ####[facility] [address] [place], [address] Creatinine [Mass/Vol] 0.73 mg/dL Normal 0.55-1.02 [facility] Comment on above: Order Comment: 'TROP ' Serial specimen #1, #2 or #3: 1 Result Comment: The validity of the calculated GFR GFRAA in patients over70 years has not been determined. Clinical correlation isessential. Performed By: #### L 100.0100, L503.6620, L501.5200, L500.2500, L501.4020 ####[facility] [address] [place], [address] ECRCL 129.52 ml/min Normal [facility] Comment on above: Order Comment: 'TROP ' Serial specimen #1, #2 or #3: 1 Performed By: #### L 100.0100, L503.6620, L501.5200, L500.2500, L501.4020 ####[facility] [address] [place], [address] EST GFR - AA 113 mL/min Normal >60 [facility] Comment on above: Order Comment: 'TROP ' Serial specimen #1, #2 or #3: 1 Result Comment: Afri can Japanese GFR Calc Performed By: #### L 100.0100, L503.6620, L501.5200, L500.2500, L501.4020 ####[facility] [address] [place], [address] GAP 3 Low 5-15 [facility] Comment on above: Order Comment: 'TROP ' Serial specimen #1, #2 or #3: 1 Performed By: #### L 100.0100, L503.6620, L501.5200, L500.2500, L501.4020 ####[facility] [address] [place], [address] GFR/1.73 sq M.predicted among non-blacks MDRD (S/P/Bld) [Vol rate/Area] 93 mL/min/{1.73_m2} Normal >60 [facility] Comment on above: Order Comment: 'TROP ' Serial specimen #1, #2 or #3: 1 Result Comment: Non- GFR Calc Performed By: #### L 100.0100, L503.6620, L501.5200, L500.2500, L501.4020 ####[facility] [address] [place], [address] Glucose [Mass/Vol] 78 mg/dL Normal 74-106 [facility] Comment on above: Order Comment: 'TROP ' Serial specimen #1, #2 or #3: 1 Performed By: #### L 100.0100, L503.6620, L501.5200, L500.2500, L501.4020 ####[facility] [address] [place], [address] Potassium [Moles/Vol] 4.2 mmol/L Normal 3.5-5.1 [facility] Comment on above: Order Comment: 'TROP ' Serial specimen #1, #2 or #3: 1 Performed By: #### L 100.0100, L503.6620, L501.5200, L500.2500, L501.4020 ####[facility] [address] [place], [address] Sodium [Moles/Vol] 137 mmol/L Normal 136-145 [facility] Comment on above: Order Comment: 'TROP ' Serial specimen #1, #2 or #3: 1 Performed By: #### L 100.0100, L503.6620, L501.5200, L500.2500, L501.4020 ####[facility] [address] [place], [address] Urea nitrogen [Mass/Vol] 29 mg/dL High 7-18 [facility] Comment on above: Order Comment: 'TROP ' Serial specimen #1, #2 or #3: 1 Performed By: #### L 100.0100, L503.6620, L501.5200, L500.2500, L501.4020 ####[facility] [address] [place], [address] CBC W/Diff, Automatedon 11- Absolute Lymph 2.61 X10 3/uL Normal 0.83-4.51 [facility] Comment on above: Performed By: #### L 100.0100, L500.4050 ####[facility] [address] [place], [address] Absolute Neut 8.4 X10 3/uL High 2.0-7.7 [facility] Comment on above: Performed By: #### L 100.0100, L500.4050 ####[facility] [address] [place], [address] Basophils/100 WBC (Bld) 0.5 % Normal 0-1 [facility] Comment on above: Performed By: #### L 100.0100, L500.4050 ####[facility] [address] [place], [address] Eosinophils/100 WBC (Bld) 4.7 % Normal 0-5 [facility] Comment on above: Performed By: #### L 100.0100, L500.4050 ####[facility] [address] [place], [address] Erythrocyte distribution width (RBC) [Ratio] 13.2 % Normal 11.6-14.6 [facility] Comment on above: Performed By: #### L 100.0100, L500.4050 ####[facility] [address] [place], [address] Hematocrit (Bld) [Volume fraction] 34.9 % Low 37-47 [facility] Comment on above: Performed By: #### L 100.0100, L500.4050 ####[facility] [address] [place], [address] Hemoglobin (Bld) [Mass/Vol] 11.0 g/dL Low 12.0-15.0 [facility] Comment on above: Performed By: #### L 100.0100, L500.4050 ####[facility] [address] [place], [address] IG% 0.600 Normal 0.0-0.9 [facility] Comment on above: Result Comment: IG% - Immature Granulocytes (promyelocytes, myelocytes andmetamyelocytes) > 1% indicates that a LEFT SHIFT is Present. Performed By: #### L 100.0100, L500.4050 ####[facility] [address] [place], [address] Lymphocytes/100 WBC (Bld) 20.2 % Normal 19-41 [facility] Comment on above: Performed By: #### L 100.0100, L500.4050 ####[facility] [address] [place], [address] MCH (RBC) [Entitic mass] 32.0 pg Normal 27.0-32.0 [facility] Comment on above: Performed By: #### L 100.0100, L500.4050 ####[facility] [address] [place], [address] MCHC (RBC) [Mass/Vol] 31.5 g/dL Low 32-36 [facility] Comment on above: Performed By: #### L 100.0100, L500.4050 ####[facility] [address] [place], [address] MCV (RBC) [Entitic vol] 101.5 fL High 81-99 [facility] Comment on above: Performed By: #### L 100.0100, L500.4050 ####[facility] [address] [place], [address] Monocytes/100 WBC (Bld) 9.1 % Normal 0-10 [facility] Comment on above: Performed By: #### L 100.0100, L500.4050 ####[facility] [address] [place], [address] Neutrophils/100 WBC (Bld) 64.9 % Normal 47-70 [facility] Comment on above: Performed By: #### L 100.0100, L500.4050 ####[facility] [address] [place], [address] Nucleated RBC (Bld) [#/Vol] 0 10*3/uL Normal 0-5 [facility] Comment on above: Performed By: #### L 100.0100, L500.4050 ####[facility] [address] [place], [address] Platelet mean volume (Bld) [Entitic vol] 11.4 fL Normal 6.2-12.0 [facility] Comment on above: Performed By: #### L 100.0100, L500.4050 ####[facility] [address] [place], [address] Platelets (Bld) [#/Vol] 156 10*3/uL Normal 150-450 [facility] Comment on above: Performed By: #### L 100.0100, L500.4050 ####[facility] [address] [place], [address] RBC (Bld) [#/Vol] 3.44 10*6/uL Low 4.2-5.4 [facility] Comment on above: Performed By: #### L 100.0100, L500.4050 ####[facility] [address] [place], [address] RDW SD 49.1 fl High 35.1-43.9 [facility] Comment on above: Performed By: #### L 100.0100, L500.4050 ####[facility] [address] [place], [address] WBC (Bld) [#/Vol] 12.9 10*3/uL High 4.4-11.0 [facility] Comment on above: Performed By: #### L 100.0100, L500.4050 ####[facility] [address] [place], [address] Absolute Lymph 2.83 X10 3/uL Normal 0.83-4.51 [facility] Comment on above: Performed By: #### L 100.0100, L503.6620, L501.5200, L500.2500, L501.4020 ####[facility] [address] [place], [address] Absolute Neut 9.1 X10 3/uL High 2.0-7.7 [facility] Comment on above: Performed By: #### L 100.0100, L503.6620, L501.5200, L500.2500, L501.4020 ####[facility] [address] [place], [address] Basophils/100 WBC (Bld) 0.6 % Normal 0-1 [facility] Comment on above: Performed By: #### L 100.0100, L503.6620, L501.5200, L500.2500, L501.4020 ####[facility] [address] [place] [place], [address] Eosinophils/100 WBC (Bld) 4.9 % Normal 0-5 [facility] Comment on above: Performed By: #### L 100.0100, L503.6620, L501.5200, L500.2500, L501.4020 ####[facility] [address] [place], [address] Erythrocyte distribution width (RBC) [Ratio] 13.2 % Normal 11.6-14.6 [facility] Comment on above: Performed By: #### L 100.0100, L503.6620, L501.5200, L500.2500, L501.4020 ####[facility] [address] [place], [address] Hematocrit (Bld) [Volume fraction] 37.6 % Normal 37-47 [facility] Comment on above: Performed By: #### L 100.0100, L503.6620, L501.5200, L500.2500, L501.4020 ####[facility] [address] [place], [address] Hemoglobin (Bld) [Mass/Vol] 12.0 g/dL Normal 12.0-15.0 [facility] Comment on above: Performed By: #### L 100.0100, L503.6620, L501.5200, L500.2500, L501.4020 ####[facility] [address] [place], [address] IG% 0.900 Normal 0.0-0.9 [facility] Comment on above: Result Comment: IG% - Immature Granulocytes (promyelocytes, myelocytes andmetamyelocytes) > 1% indicates that a LEFT SHIFT is Present. Performed By: #### L 100.0100, L503.6620, L501.5200, L500.2500, L501.4020 ####[facility] [address] [place], [address] Lymphocytes/100 WBC (Bld) 20.1 % Normal 19-41 [facility] Comment on above: Performed By: #### L 100.0100, L503.6620, L501.5200, L500.2500, L501.4020 ####[facility] [address] [place], [address] MCH (RBC) [Entitic mass] 32.4 pg High 27.0-32.0 [facility] Comment on above: Performed By: #### L 100.0100, L503.6620, L501.5200, L500.2500, L501.4020 ####[facility] [address] [place], [address] MCHC (RBC) [Mass/Vol] 31.9 g/dL Low 32-36 [facility] Comment on above: Performed By: #### L 100.0100, L503.6620, L501.5200, L500.2500, L501.4020 ####[facility] [address] [place], [address] MCV (RBC) [Entitic vol] 101.6 fL High 81-99 [facility] Comment on above: Performed By: #### L 100.0100, L503.6620, L501.5200, L500.2500, L501.4020 ####[facility] [address] [place], [address] Monocytes/100 WBC (Bld) 9.0 % Normal 0-10 [facility] Comment on above: Performed By: #### L 100.0100, L503.6620, L501.5200, L500.2500, L501.4020 ####[facility] [address] [place], [address] Neutrophils/100 WBC (Bld) 64.5 % Normal 47-70 [facility] Comment on above: Performed By: #### L 100.0100, L503.6620, L501.5200, L500.2500, L501.4020 ####[facility] [address] [place], [address] Nucleated RBC (Bld) [#/Vol] 0 10*3/uL Normal 0-5 [facility] Comment on above: Performed By: #### L 100.0100, L503.6620, L501.5200, L500.2500, L501.4020 ####[facility] [address] [place], [address] Platelet mean volume (Bld) [Entitic vol] 11.1 fL Normal 6.2-12.0 [facility] Comment on above: Performed By: #### L 100.0100, L503.6620, L501.5200, L500.2500, L501.4020 ####[facility] [address] [place], [address] Platelets (Bld) [#/Vol] 172 10*3/uL Normal 150-450 [facility] Comment on above: Performed By: #### L 100.0100, L503.6620, L501.5200, L500.2500, L501.4020 ####[facility] [address] [place], [address] RBC (Bld) [#/Vol] 3.70 10*6/uL Low 4.2-5.4 [facility] Comment on above: Performed By: #### L 100.0100, L503.6620, L501.5200, L500.2500, L501.4020 ####[facility] [address] [place], [address] RDW SD 49.0 fl High 35.1-43.9 [facility] Comment on above: Performed By: #### L 100.0100, L503.6620, L501.5200, L500.2500, L501.4020 ####[facility] [address] [place], [address] WBC (Bld) [#/Vol] 14.1 10*3/uL High 4.4-11.0 [facility] Comment on above: Performed By: #### L 100.0100, L503.6620, L501.5200, L500.2500, L501.4020 ####[facility] [address] [place], [address] Tal 01-23-2024 LOU Telephone ([facility]) SIA ABDUL ([id number]) 1980 F Date Time Provider Department 01/23/24 MIKA KAPLAN During your visit today, we recorded the following information about you: Candelaria Ball LPN 01/23/2024 10:34 AM Signed Clarence from [facility] calling patient Cariologist took her off the bumex and furosemide and put her on torsemide 20 mg twice daily. Last night her weight was 297.6 pounds. Patient is admitted to [facility] today with CHF. Mika Kaplan APRN.CNP 01/23/2024 [...] 2 SPRAYS IN EACH NOSTRIL DAILY - Pjdsu-3-OOU-EPA-Fish Oil 1,000 mg (120 mg-180 mg) cap [...] (chronic) (per (more content not included)... Normal [facility] Metabolic Prof nahid 01-23-2024 Albumin [Mass/Vol] 3.0 g/dL Low 3.2-5.0 [facility] Comment on above: Performed By: #### L 100.0100, L500.4050 ####[facility] [address] [place], [place], [address] Albumin/Globulin [Mass ratio] 0.9 {ratio} Normal 0.9-2.4 [facility] Comment on above: Performed By: #### L 100.0100, L500.4050 ####[facility] [address] [place], [address] ALK P 76 U/L Normal 45-117 [facility] Comment on above: Performed By: #### L 100.0100, L500.4050 ####[facility] [address] [place], [address] ALT [Catalytic activity/Vol] 20 U/L Normal 13-56 [facility] Comment on above: Performed By: #### L 100.0100, L500.4050 ####[facility] [address] [place], [address] AST [Catalytic activity/Vol] 12 U/L Low 15-37 [facility] Comment on above: Performed By: #### L 100.0100, L500.4050 ####[facility] [address] [place], [address] Bilirubin [Mass/Vol] 0.50 mg/dL Normal 0.20-1.00 [facility] Comment on above: Result Comment: For patients on eltrombopag therapy, use of Dimension [place] TBIL is not recommended. Performed By: #### L 100.0100, L500.4050 ####[facility] [address] [place], [address] BUN/CRE 42.2 RATIO High 10-20 [facility] Comment on above: Performed By: #### L 100.0100, L500.4050 ####[facility] [address] [place], [address] CA,Total 8.6 mg/dL Normal 8.5-10.1 [facility] Comment on above: Performed By: #### L 100.0100, L500.4050 ####[facility] [address] [place], [address] Chloride [Moles/Vol] 101 mmol/L Normal 98-107 [facility] Comment on above: Performed By: #### L 100.0100, L500.4050 ####[facility] [address] [place], [address] CO2 [Moles/Vol] 35.0 mmol/L High 21.0-32.0 [facility] Comment on above: Performed By: #### L 100.0100, L500.4050 ####[facility] [address] [place], [address] Creatinine [Mass/Vol] 0.69 mg/dL Normal 0.55-1.02 [facility] Comment on above: Result Comment: The validity of the calculated GFR GFRAA in patients over70 years has not been determined. Clinical correlation isessential. Performed By: #### L 100.0100, L500.4050 ####[facility] [address] [place], [address] ECRCL 140.83 ml/min Normal [facility] Comment on above: Performed By: #### L 100.0100, L500.4050 ####[facility] [address] [place], [address] EST GFR - AA 121 mL/min Normal >60 [facility] Comment on above: Result Comment: Afri can Japanese GFR Calc Performed By: #### L 100.0100, L500.4050 ####[facility] [address] [place], [address] GAP 2 Low 5-15 [facility] Comment on above: Performed By: #### L 100.0100, L500.4050 ####[facility] [address] [place], [address] GFR/1.73 sq M.predicted among non-blacks MDRD (S/P/Bld) [Vol rate/Area] 100 mL/min/{1.73_m2} Normal >60 [facility] Comment on above: Result Comment: Non- GFR Calc Performed By: #### L 100.0100, L500.4050 ####[facility] [address] [place], [address] Globulin (S) [Mass/Vol] 3.3 g/dL Normal 2.2-4.2 [facility] Comment on above: Performed By: #### L 100.0100, L500.4050 ####[facility] [address] [place], [address] Glucose [Mass/Vol] 89 mg/dL Normal 74-106 [facility] Comment on above: Performed By: #### L 100.0100, L500.4050 ####[facility] [address] [place], [address] Potassium [Moles/Vol] 4.1 mmol/L Normal 3.5-5.1 [facility] Comment on above: Performed By: #### L 100.0100, L500.4050 ####[facility] [address] [place], [address] Sodium [Moles/Vol] 138 mmol/L Normal 136-145 [facility] Comment on above: Performed By: #### L 100.0100, L500.4050 ####[facility] [address] [place], [address] T PROT 6.3 g/dL Low 6.4-8.2 [facility] Comment on above: Performed By: #### L 100.0100, L500.4050 ####[facility] [address] [place], [address] Urea nitrogen [Mass/Vol] 29 mg/dL High 7-18 [facility] Comment on above: Performed By: #### L 100.0100, L500.4050 ####[facility] [address] [place], [address] H AND P Exam - [facility] 11-15-2024 H&P Exam - Hospitalist Normal [facility] L501.4020on 01-23-2024 TROPONIN-I HS 10 pg/mL Normal 3.0-54.0 [facility] Comment on above: Order Comment: 'TROP ' Serial specimen #1, #2 or #3: 1 Result Comment: Donald mcdonnell Note: New Test Units and Gender Specific Reference Ranges. For more information see Policy Stat Procedure [place] High Sensitivity Troponin (TNIH) and attachments. Performed By: #### L 100.0100, L503.6620, L501.5200, L500.2500, L501.4020 ####[facility] [address] [place], [address] Magnesiumon 01-23-2024 Magnesium [Mass/Vol] 2.4 mg/dL Normal 1.6-2.6 [facility] Comment on above: Order Comment: 'TROP ' Serial specimen #1, #2 or #3: 1 Performed By: #### L 100.0100, L503.6620, L501.5200, L500.2500, L501.4020 ####[facility] [address] [place], [address] Urinalysis, Completeon 01-22 RBC 0-5 SEEN Normal 0-5 [facility] Comment on above: Order Comment: CLEAN CATCH Performed By: #### L 400.0001 ####[facility] [address] [place], [address] BACTERIA 0 SEEN Normal None Seen [facility] Comment on above: Order Comment: CLEAN CATCH Performed By: #### L 400.0001 ####[facility] [address] [place], [address] EPI,SQUAMOUS 0 SEEN Normal 5-10 [facility] Comment on above: Order Comment: CLEAN CATCH Performed By: #### L 400.0001 ####[facility] [address] [place], [address] Mucus Ql (Urine sed) 0 SEEN Normal [facility] Comment on above: Order Comment: CLEAN CATCH Performed By: #### L 400.0001 ####[facility] [address] [place], [address] WBC 0 SEEN Normal 0-5 [facility] Comment on above: Order Comment: CLEAN CATCH Performed By: #### L 400.0001 ####[facility] [address] [place], [address] 12 Lead EKGon 01-22-2024 12 Lead EKG Normal [facility] CNPNon 01-22-2024 CNPN Telephone (INTMWS) SIA ABDUL ([id number]) 1980 F Date Time Provider Department 01/22/24 MARILEE THAKUR INTMWS During your visit today, we recorded the following information about you: Kristine Hayes, RN 01/22/2024 2:42 PM Signed Clarence Calderon nurse with [facility] calling to see if he can get an order from provider's office for PT/OT for pt. 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 Having trouble getting on and off the bus to go to [employer]. Hoping to get PT/OT to evaluate and treat. No need to call Clarence back. If okay, please fax orders to [phone] [facility]. Mika Kaplan APRN.CNP 01/22/2024 3:15 PM Signed Agree with need for PT/OT and agree to follow. Thank you CLIF Mccain Joy, APRN.CNP 01/23/2024 7:22 AM Signed Patient currently admitted to hospital with CHF. Will need orders once discharged. 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 Normal [facility] Chest 1 View (Portable)on Chest 1 View (Portable) Normal [facility] Emergency Department Summary on 01-22-2024 Emergency Department Summary Normal [facility] Comprehensive metabolic 2000 panelon 01-20-2024 Albumin BCP dye [Mass/Vol] 3.9 g/dL Normal 3.4-5.0 [facility] Comment on above: Performed By: #### 2 4323-8 #### ENEDINA Campbell ([id number]) [facility] ([facility]) [address] [place] [address] ALP [Catalytic activity/Vol] 81 U/L Normal 33-110 [facility] Comment on above: Performed By: #### 2 4323-8 #### ENEDINA Campbell ([id number]) [facility] ([facility]) [address] [place] [address] ALT With P-5'-P [Catalytic activity/Vol] 15 U/L Normal 7-45 [facility] Comment on above: Result Comment: Isabella ents treated with Sulfasalazine may generate falsely decreased results for ALT. Performed By: #### 2 4323-8 #### ENEDINA Campbell ([id number]) [facility] ([facility]) [address] [place] [address] Anion gap [Moles/Vol] 9 mmol/L Low 10-20 [facility] Comment on above: Performed By: #### 2 4323-8 #### ENEDINA Campbell ([id number]) [facility] ([facility]) [address] [place] [address] AST With P-5'-P [Catalytic activity/Vol] 14 U/L Normal 9-39 [facility] Comment on above: Performed By: #### 2 4323-8 #### ENEDINA Campbell ([id number]) [facility] ([facility]) [address] [place] [address] Bilirubin [Mass/Vol] 0.3 mg/dL Normal 0.0-1.2 [facility] Comment on above: Performed By: #### 2 4323-8 #### ENEDINA ALVAREZ L ([id number]) [facility] ([facility]) [address] [place] [address] Calcium [Mass/Vol] 9.0 mg/dL Normal 8.6-10.6 [facility] Comment on above: Performed By: #### 2 4323-8 #### ENEDINA SEAMANER L ([id number]) [facility] ([facility]) [address] [place] [address] Chloride [Moles/Vol] 103 mmol/L Normal 98-107 [facility] Comment on above: Performed By: #### 2 4323-8 #### ENEDINA ALVAREZ L ([id number]) [facility] ([facility]) [address] [place] [address] CO2 [Moles/Vol] 35 mmol/L High 21-32 [facility] Comment on above: Performed By: #### 2 4323-8 #### ENEDINA ALVAREZ L ([id number]) [facility] ([facility]) [address] [place] [address] Creatinine [Mass/Vol] 0.74 mg/dL Normal 0.50-1.05 [facility] Comment on above: Performed By: #### 2 4323-8 #### ENEDINA ALVAREZ L ([id number]) [facility] ([facility]) [address] [place] [address] GFR/1.73 sq M.predicted MDRD (S/P/Bld) [Vol rate/Area] mL/min/{1.73_m2} Normal >60 [facility] Comment on above: Result Comment: Calc ulations of estimated GFR are performed using the 2020 CKD-EPI Study Refit equation without the race variable for the IDMS-Traceable creatinine methods. https://jasn.asnjournals.org/content/early/ASN.126974 9244 Performed By: #### 2 4323-8 #### ENEDINA Campbell ([id number]) [facility] ([facility]) [address] [place] [address] Glucose [Mass/Vol] 91 mg/dL Normal 74-99 [facility] Comment on above: Performed By: #### 2 4323-8 #### ENEDINA Campbell ([id number]) [facility] ([facility]) [address] [place] [address] Potassium [Moles/Vol] 5.0 mmol/L Normal 3.5-5.3 [facility] Comment on above: Performed By: #### 2 4323-8 #### ENEDINA Campbell ([id number]) [facility] ([facility]) [address] [place] [address] Protein [Mass/Vol] 6.7 g/dL Normal 6.4-8.2 [facility] Comment on above: Performed By: #### 2 4323-8 #### ENEDINA Campbell ([id number]) [facility] ([facility]) [address] [place] [address] Sodium [Moles/Vol] 142 mmol/L Normal 136-145 [facility] Comment on above: Performed By: #### 2 4323-8 #### ENEDINA Campbell ([id number]) [facility] ([facility]) [address] [place] [address] Urea nitrogen [Mass/Vol] 26 mg/dL High 6-23 [facility] Comment on above: Performed By: #### 2 4323-8 #### ENEDINA ALVAREZ L ([id number]) [facility] ([facility]) [address] [place] [address] ECG 12-LEADon 01-20-2024 ECG 12-LEAD Ventricular Rate 69 Atrial Rate 69 P-R Interval 122 QRS Duration 78 Q-T Interval 370 QTC Calculation(Bazett) 396 P Blenheim 25 R Blenheim -5 T Blenheim 0 QRS Count 12 Q Onset 214 P Onset 153 P Offset 197 T Offset 399 QTC Fredericia 387 Diagnosis Normal sinus rhythm Nonspecific T wave abnormality Abnormal ECG Confirmed by Isi Goodman ([id number]) on 01/23/2024 11:24:41 AM Normal [facility] Natriuretic peptide B [Mass/ Vol]on 01-20-2024 Natriuretic peptide B (Bld) [Mass/Vol] 83 pg/mL Normal 0-99 [facility] Comment on above: Order Comment: <100 [...] By: #### 3 0934-4 #### ENEDINA Campbell ([id number]) [facility] ([facility]) [address] [place] [address] Tal 01-19-2024 [facility] Telephone (INT[facility]) ISA ABDUL ([id number]) 1980 F Date Time Provider Department 01/19/24 MARILEE THAKUR INTMWS During your visit today, we recorded the following information about you: Lillie Marshall RN 01/19/2024 9:00 AM Signed Shobha from [facility] calls to report that patient has had [...] Shobha reports that patient was to see tutorial laboratory supervisor Isi Goodman with . Bumex and Furosemide [...] 2 SPRAYS IN EACH NOSTRIL DAILY - Ggmrx-0-LBF-EPA-Fish Oil 1,000 mg (120 mg-180 mg) cap [...] and respi (more content not included)... Normal [facility] CNPNon 01-13-2024 CNPN Telephone (INT[facility]) SIA ABDUL ([id number]) 1980 F Date Time Provider Department 01/13/24 MARILEE THAKUR INTMWS During your visit today, we recorded the following information about you: Candelaria Ball LPN 01/13/2024 8:12 AM Signed Clarence from [facility] calling patient weight Friday am was 274 pounds. Patient weight this morning at 745 am is 278 pounds. Patient uses [facility] for the pharmacy. Please notify Clarence with any changes and also [facility] [phone]. Please advise Marilee Thakur MD 01/13/2024 5:39 [...] since yesterday pt is now [address] [facility]. They will be starting medication tomorrow 01-15-24 and will come in on Friday01/19/24 to get lab work done. If anything else is needed please call Clarence. Clarence will be keeping you updated on pt's weight and symptoms. Pamela Singh, Mima Finnegan LPN 01/14/2024 12:00 PM [facility] be [facility] today as they want to start pt on it today? Order pending review. JORDAN Grissom Joy, APRN.OBED 01/14/2024 1:35 PM Signed Order sent. Please verify they are starting this today as she continues to have weight gain. Thank you Mika Kaplan APRN.Mima Ruvalcaba LPN 01/14/2024 2:19 PM Signed Shobha from [facility] notified Rx has been sent in AND [...] 2 SPRAYS IN EACH NOSTRIL DAILY - Kjcoi-4-YJB-EPA-Fish Oil 1,000 mg (120 mg-180 mg) cap [...] CNOV Office Visit (INTMWS ) SIA ABDUL ([id number]) 1980 F Date Time Provider Department 01/12/24 [...] ) fluticasone (FLONASE) 50 mcg/actuation nasal spray Cthaj-4-BAW-EPA-Fish Oil 1,000 mg (120 mg-180 mg) cap [...] PRESCRIPTION COMP (more content not included)... Normal [facility] SIA ABDUL ([id number]) 1980 F Date Time Provider Department 01/12/24 MARILEE THAKUR INTWS During your visit today, we recorded the following information about you: Aaliyah Gonzalez MA 01/12/2024 10:20 AM Signed Patient needs orders for Pneumatic compression, stockings, and wraps. Orders pended. Please file if agreeable. Once ordered, will need to fax orders to [facility] at [phone], ATTN Shobha/COMFORT Agrawal Joy, APRN.OBED 01/12/2024 12:10 [...] right lower extremity [I89.0] Order(s):PNEUMATIC COMPRESSION DEVICE [[id number]] Order #: [id number] COMPRESSION STOCKINGS [[id number]] Order #: [id number] ELASTIC BANDAGE [[id number]] Order #: [id number] Prescriptions as of 01/12/2024 - furosemide (LASIX) [...] 2 SPRAYS IN EACH NOSTRIL DAILY - Jgvxl-8-ZKE-EPA-Fish Oil 1,000 mg (120 mg-180 mg) cap [...] of k (more content not included)... Normal [facility] Basic Metabolic Profile (BMP )on 01-08-2024 BUN/CRE 34.5 RATIO High 12-27 [facility] Comment on above: Performed By: #### L 500.2500 ####[facility] [address] [place], [address] CA,Total 9.3 mg/dL Normal 8.5-10.1 [facility] Comment on above: Performed By: #### L 500.2500 ####[facility] [address] [place], [address] Chloride [Moles/Vol] 106 mmol/L Normal 98-107 [facility] Comment on above: Performed By: #### L 500.2500 ####[facility] [address] [place], [address] CO2 [Moles/Vol] 32.0 mmol/L Normal 21.0-32.0 [facility] Comment on above: Performed By: #### L 500.2500 ####[facility] [address] [place], [address] Creatinine [Mass/Vol] 0.58 mg/dL Normal 0.55-1.02 [facility] Comment on above: Result Comment: The validity of the calculated GFR GFRAA in patients over70 years has not been determined. Clinical correlation isessential. Performed By: #### L 500.2500 ####[facility] [address] [place], [address] ECRCL 155.04 ml/min Normal [facility] Comment on above: Performed By: #### L 500.2500 ####[facility] [address] [place], [address] EST GFR - AA 147 mL/min Normal >60 [facility] Comment on above: Result Comment: Afri can Japanese GFR Calc Performed By: #### L 500.2500 ####[facility] [address] [place], [address] GAP 3 Low 5-15 [facility] Comment on above: Performed By: #### L 500.2500 ####[facility] [address] [place], [address] GFR/1.73 sq M.predicted among non-blacks MDRD (S/P/Bld) [Vol rate/Area] 122 mL/min/{1.73_m2} Normal >60 [facility] Comment on above: Result Comment: Non- GFR Calc Performed By: #### L 500.2500 ####[facility] [address] [place], [address] Glucose [Mass/Vol] 78 mg/dL Normal 74-106 [facility] Comment on above: Performed By: #### L 500.2500 ####[facility] [address] [place], [address] Potassium [Moles/Vol] 4.6 mmol/L Normal 3.5-5.1 [facility] Comment on above: Performed By: #### L 500.2500 ####[facility] [address] [place], [address] Sodium [Moles/Vol] 141 mmol/L Normal 136-145 [facility] Comment on above: Performed By: #### L 500.2500 ####[facility] [address] [place], [address] Urea nitrogen [Mass/Vol] 20 mg/dL High 7-18 [facility] Comment on above: Performed By: #### L 500.2500 ####[facility] [address] [place], [address] Emergency Department Summary on 01-08-2024 Emergency Department Summary Normal [facility] 01-07-2024 CNPN Telephone (INTMWS) SIA ABDUL ([id number]) 1980 F Date Time Provider Department 01/07/24 MARILEE THAKUR INTMWS During your visit today, we recorded the following information about you: Candelaria Ball LPN 01/07/2024 10:29 AM Signed Shobha caregiver from Nursing Home calling patient weight today at 850 am [...] 2 SPRAYS IN EACH NOSTRIL DAILY - Hszqm-1-DPS-EPA-Fish Oil 1,000 mg (120 mg-180 mg) cap [...] [Z68.42] 02/09/2015 (more content not included)... Normal [facility] CNPNon 01-06-2024 CNPN Telephone (INTMWS) SIA ABDUL ([id number]) 1980 F Date Time Provider Department 01/06/24 AMRILEE THAKUR INTMWS During your visit today, we recorded the following information about you: Candelaria Ball LPN 01/06/2024 10:58 AM Signed Shobha from Nursing Home Caregiver calling with patient weight was told [...] Shobha is needing written directions faxed to [phone] as Shobha is not licensed and can not take verbal order. Marilee Thakur MD 01/07/2024 10:44 AM Signed Can you update me how much lasix she lost with the lasix, since discharge? Marilee Lassiter MD, Amanda, RN 01/07/2024 11:16 AM Signed Called and left a voicemail for Shobha -intermediate, caregiver to call back and ask for a nurse to receive the providers message. RODRÍGUEZ Hua M Robin, RN 01/07/2024 1:18 PM Signed Shobha returned call. Shobha had called today at 10:29 am, and that message copied and pasted below, and the other encounter closed: Note Shobha caregiver from Nursing Home calling patient weight today at 850 am [...] Please advise and phone Shobha with reply: [phone]. Shobha will still need order faxed to [phone] since she cannot take verbal. Rah Turner RN 01/08/2024 8:25 AM Signed Shobha- [place]- phoned stating she needs a reply today, hopefully within the hour, b/c she has an [employer]KER there who can take a verbal. . [...] message below. Shobha agreeable. Shobha will have TOP FRAME MAKER call in for verbal. Will leave encounter open until TOP FRAME MAKER calls back. Reports the Rx's need to be sent to [facility]. Pended for [facility]. Patient has appt with tutorial laboratory supervisor- Dr. Goodman at [facility] on 01-20-24 @ 8:30 am, and with pcp on 01-12-24 @ 9 am. Rah Turner RN 01/08/2024 9:24 AM Signed Blanca ORTEGA returned call and given verbal written by provider below. Blacna verbalized understanding. Still need Rx's sent to [facility]. Allergies As of Date: 01/06/2024 Noted Allergy Reaction BEE STING 02/28/2023 10 - Anaphylaxis DILANTIN (PHENYTOIN SODIUM EXTEND*01/28/2006 Date Reviewed: 11/18/2023 Reviewed by: Aaliyah Gonzalez MA - Fully Assessed Reason for Visit: Patient Update [1234] Primary Visit Diagnosis:Medication management [Z79.899] Order(s):BASIC METABOLIC PANEL [SQBMP] Order #: [id number] FUTURE furosemide (LASIX) 40 mg tabletTake 1 [...] 2 SPRAYS IN EACH NOSTRIL DAILY - Nqbfa-7-WFV-EPA-Fish Oil 1,000 mg (120 mg-180 mg) cap Take 1 capsule by mouth once daily. - EPINEPHrine (EPIP (more content not included)... Normal [facility] Basic Metabolic Profile (BMP )on 01-04-2024 BUN Normal 7-18 [facility] Comment on above: Result Comment: Canc elled via OM: Order cancelled - Patient discharged Performed By: #### L 500.2500, L100.0100 ####[facility] [address] [place], [address] BUN/CRE Normal 10-20 [facility] Comment on above: Result Comment: Canc elled via OM: Order cancelled - Patient discharged Performed By: #### L 500.2500, L100.0100 ####[facility] [address] [place], [address] CA,Total Normal 8.5-10.1 [facility] Comment on above: Result Comment: Canc elled via OM: Order cancelled - Patient discharged Performed By: #### L 500.2500, L100.0100 ####[facility] [address] [place], [address] CL Normal 98-107 [facility] Comment on above: Result Comment: Canc elled via OM: Order cancelled - Patient discharged Performed By: #### L 500.2500, L100.0100 ####[facility] [address] [place], [address] CO2 Normal 21.0-32.0 [facility] Comment on above: Result Comment: Canc elled via OM: Order cancelled - Patient discharged Performed By: #### L 500.2500, L100.0100 ####[facility] [address] [place], [address] CREAT,SERUM Normal 0.55-1.02 [facility] Comment on above: Result Comment: Canc elled via OM: Order cancelled - Patient discharged Performed By: #### L 500.2500, L100.0100 ####[facility] [address] [place], [address] EST GFR Normal >60 [facility] Comment on above: Result Comment: Canc elled via OM: Order cancelled - Patient discharged Performed By: #### L 500.2500, L100.0100 ####[facility] [address] [place], [address] EST GFR - AA Normal >60 [facility] Comment on above: Result Comment: Canc elled via OM: Order cancelled - Patient discharged Performed By: #### L 500.2500, L100.0100 ####[facility] [address] [place], [address] GAP Normal 5-15 [facility] Comment on above: Result Comment: Canc elled via OM: Order cancelled - Patient discharged Performed By: #### L 500.2500, L100.0100 ####[facility] [address] [place], [address] GLU Normal 74-106 [facility] Comment on above: Result Comment: Canc elled via OM: Order cancelled - Patient discharged Performed By: #### L 500.2500, L100.0100 ####[facility] [address] [place], [address] Potassium Normal 3.5-5.1 [facility] Comment on above: Result Comment: Canc elled via OM: Order cancelled - Patient discharged Performed By: #### L 500.2500, L100.0100 ####[facility] [address] [place], [address] Basic Metabolic Profile (BMP) Normal 136-145 [facility] Comment on above: Result Comment: Canc elled via OM: Order cancelled - Patient discharged Performed By: #### L 500.2500, L100.0100 ####[facility] [address] [place], [address] CBC W/Diff, Automatedon 10-2 Absolute Neut Normal 2.0-7.7 [facility] Comment on above: Result Comment: Canc elled via OM: Order cancelled - Patient discharged Performed By: #### L 500.2500, L100.0100 ####[facility] [address] [place], [address] HCT Normal 37-47 [facility] Comment on above: Result Comment: Canc elled via OM: Order cancelled - Patient discharged Performed By: #### L 500.2500, L100.0100 ####[facility] [address] [place], [address] HGB Normal 12.0-15.0 [facility] Comment on above: Result Comment: Canc elled via OM: Order cancelled - Patient discharged Performed By: #### L 500.2500, L100.0100 ####[facility] [address] [place], [address] MCH Normal 27.0-32.0 [facility] Comment on above: Result Comment: Canc elled via OM: Order cancelled - Patient discharged Performed By: #### L 500.2500, L100.0100 ####[facility] [address] [place], [address] MCHC Normal 32-36 [facility] Comment on above: Result Comment: Canc elled via OM: Order cancelled - Patient discharged Performed By: #### L 500.2500, L100.0100 ####[facility] [address] [place], [address] MCV Normal 81-99 [facility] Comment on above: Result Comment: Canc elled via OM: Order cancelled - Patient discharged Performed By: #### L 500.2500, L100.0100 ####[facility] [address] [place], [address] NEUT% Normal 47-70 [facility] Comment on above: Result Comment: Canc elled via OM: Order cancelled - Patient discharged Performed By: #### L 500.2500, L100.0100 ####[facility] [address] [place], [address] PLT Normal 150-450 [facility] Comment on above: Result Comment: Canc elled via OM: Order cancelled - Patient discharged Performed By: #### L 500.2500, L100.0100 ####[facility] [address] [place], [address] RBC Normal 4.2-5.4 [facility] Comment on above: Result Comment: Canc elled via OM: Order cancelled - Patient discharged Performed By: #### L 500.2500, L100.0100 ####[facility] [address] [place], [address] RDW CV Normal 11.6-14.6 [facility] Comment on above: Result Comment: Canc elled via OM: Order cancelled - Patient discharged Performed By: #### L 500.2500, L100.0100 ####[facility] [address] [place], [address] RDW SD Normal 35.1-43.9 [facility] Comment on above: Result Comment: Canc elled via OM: Order cancelled - Patient discharged Performed By: #### L 500.2500, L100.0100 ####[facility] [address] [place], [address] WBC Normal 4.4-11.0 [facility] Comment on above: Result Comment: Canc elled via OM: Order cancelled - Patient discharged Performed By: #### L 500.2500, L100.0100 ####[facility] [address] [place], [address] Basic Metabolic Profile (BMP )on 01-03-2024 BUN Normal 7-18 [facility] Comment on above: Result Comment: Canc elled via OM: Order cancelled - Patient discharged Performed By: #### L 100.0100, L500.2500 ####[facility] [address] [place], [address] BUN/CRE Normal 10-20 [facility] Comment on above: Result Comment: Canc elled via OM: Order cancelled - Patient discharged Performed By: #### L 100.0100, L500.2500 ####[facility] [address] [place], [address] CA,Total Normal 8.5-10.1 [facility] Comment on above: Result Comment: Canc elled via OM: Order cancelled - Patient discharged Performed By: #### L 100.0100, L500.2500 ####[facility] [address] [place], [address] CL Normal 98-107 [facility] Comment on above: Result Comment: Canc elled via OM: Order cancelled - Patient discharged Performed By: #### L 100.0100, L500.2500 ####[facility] [address] [place], [address] CO2 Normal 21.0-32.0 [facility] Comment on above: Result Comment: Canc elled via OM: Order cancelled - Patient discharged Performed By: #### L 100.0100, L500.2500 ####[facility] [address] [place], [address] CREAT,SERUM Normal 0.55-1.02 [facility] Comment on above: Result Comment: Canc elled via OM: Order cancelled - Patient discharged Performed By: #### L 100.0100, L500.2500 ####[facility] [address] [place], [address] EST GFR Normal >60 [facility] Comment on above: Result Comment: Canc elled via OM: Order cancelled - Patient discharged Performed By: #### L 100.0100, L500.2500 ####[facility] [address] [place], [address] EST GFR - AA Normal >60 [facility] Comment on above: Result Comment: Canc elled via OM: Order cancelled - Patient discharged Performed By: #### L 100.0100, L500.2500 ####[facility] [address] [place], [address] GAP Normal 5-15 [facility] Comment on above: Result Comment: Canc elled via OM: Order cancelled - Patient discharged Performed By: #### L 100.0100, L500.2500 ####[facility] [address] [place], [address] GLU Normal 74-106 [facility] Comment on above: Result Comment: Canc elled via OM: Order cancelled - Patient discharged Performed By: #### L 100.0100, L500.2500 ####[facility] [address] [place], [address] Potassium Normal 3.5-5.1 [facility] Comment on above: Result Comment: Canc elled via OM: Order cancelled - Patient discharged Performed By: #### L 100.0100, L500.2500 ####[facility] [address] [place], [address] Basic Metabolic Profile (BMP) Normal 136-145 [facility] Comment on above: Result Comment: Canc elled via OM: Order cancelled - Patient discharged Performed By: #### L 100.0100, L500.2500 ####[facility] [address] [place], [address] CBC W/Diff, Automatedon 10-2 Absolute Neut Normal 2.0-7.7 [facility] Comment on above: Result Comment: Canc elled via OM: Order cancelled - Patient discharged Performed By: #### L 100.0100, L500.2500 ####[facility] [address] [place], [address] HCT Normal 37-47 [facility] Comment on above: Result Comment: Canc elled via OM: Order cancelled - Patient discharged Performed By: #### L 100.0100, L500.2500 ####[facility] [address] [place], [address] HGB Normal 12.0-15.0 [facility] Comment on above: Result Comment: Canc elled via OM: Order cancelled - Patient discharged Performed By: #### L 100.0100, L500.2500 ####[facility] [address] [place], [address] MCH Normal 27.0-32.0 [facility] Comment on above: Result Comment: Canc elled via OM: Order cancelled - Patient discharged Performed By: #### L 100.0100, L500.2500 ####[facility] [address] [place], [address] MCHC Normal 32-36 [facility] Comment on above: Result Comment: Canc elled via OM: Order cancelled - Patient discharged Performed By: #### L 100.0100, L500.2500 ####[facility] [address] [place], [address] MCV Normal 81-99 [facility] Comment on above: Result Comment: Canc elled via OM: Order cancelled - Patient discharged Performed By: #### L 100.0100, L500.2500 ####[facility] [address] [place], [address] NEUT% Normal 47-70 [facility] Comment on above: Result Comment: Canc elled via OM: Order cancelled - Patient discharged Performed By: #### L 100.0100, L500.2500 ####[facility] [address] [place], [address] PLT Normal 150-450 [facility] Comment on above: Result Comment: Canc elled via OM: Order cancelled - Patient discharged Performed By: #### L 100.0100, L500.2500 ####[facility] [address] [place], [address] RBC Normal 4.2-5.4 [facility] Comment on above: Result Comment: Canc elled via OM: Order cancelled - Patient discharged Performed By: #### L 100.0100, L500.2500 ####[facility] [address] [place], [address] RDW CV Normal 11.6-14.6 [facility] Comment on above: Result Comment: Canc elled via OM: Order cancelled - Patient discharged Performed By: #### L 100.0100, L500.2500 ####[facility] [address] [place], [address] RDW SD Normal 35.1-43.9 [facility] Comment on above: Result Comment: Canc elled via OM: Order cancelled - Patient discharged Performed By: #### L 100.0100, L500.2500 ####[facility] [address] [place], [address] WBC Normal 4.4-11.0 [facility] Comment on above: Result Comment: Canc elled via OM: Order cancelled - Patient discharged Performed By: #### L 100.0100, L500.2500 ####[facility] [address] [place], [address] Basic Metabolic Profile (BMP )on 01-02-2024 BUN Normal 7-18 [facility] Comment on above: Result Comment: ISABELLA ENT DISCHARGED Performed By: #### L 500.2500, L100.0100 ####[facility] [address] [place], [address] BUN/CRE Normal 10-20 [facility] Comment on above: Result Comment: ISABELLA ENT DISCHARGED Performed By: #### L 500.2500, L100.0100 ####[facility] [address] [place], [address] CA,Total Normal 8.5-10.1 [facility] Comment on above: Result Comment: ISABELLA ENT DISCHARGED Performed By: #### L 500.2500, L100.0100 ####[facility] [address] [place], [address] CL Normal 98-107 [facility] Comment on above: Result Comment: ISABELLA ENT DISCHARGED Performed By: #### L 500.2500, L100.0100 ####[facility] [address] [place], [address] CO2 Normal 21.0-32.0 [facility] Comment on above: Result Comment: ISABELLA ENT DISCHARGED Performed By: #### L 500.2500, L100.0100 ####[facility] [address] [place], [address] CREAT,SERUM Normal 0.55-1.02 [facility] Comment on above: Result Comment: ISABELLA ENT DISCHARGED Performed By: #### L 500.2500, L100.0100 ####[facility] [address] [place], [address] EST GFR Normal >60 [facility] Comment on above: Result Comment: ISABELLA ENT DISCHARGED Performed By: #### L 500.2500, L100.0100 ####[facility] [address] [place], [address] EST GFR - AA Normal >60 [facility] Comment on above: Result Comment: ISABELLA ENT DISCHARGED Performed By: #### L 500.2500, L100.0100 ####[facility] [address] [place], [address] GAP Normal 5-15 [facility] Comment on above: Result Comment: ISABELLA ENT DISCHARGED Performed By: #### L 500.2500, L100.0100 ####[facility] [address] [place], [address] GLU Normal 74-106 [facility] Comment on above: Result Comment: ISABELLA ENT DISCHARGED Performed By: #### L 500.2500, L100.0100 ####[facility] [address] [place], [address] Potassium Normal 3.5-5.1 [facility] Comment on above: Result Comment: ISABELLA ENT DISCHARGED Performed By: #### L 500.2500, L100.0100 ####[facility] [address] [place], [address] Basic Metabolic Profile (BMP) Normal 136-145 [facility] Comment on above: Result Comment: ISABELLA ENT DISCHARGED Performed By: #### L 500.2500, L100.0100 ####[facility] [address] [place], [address] Bedside Glucoseon 01-02-2024 FINGERSTICK GLU 86 mg/dL Normal 74-106 [facility] Comment on above: Result Comment: ETHAN PRITCHETT OF PATIENT CARE PER NURSING PROTOCOL Performed By: #### L 501.080 ####[facility] [address] [place], [address] CBC W/Diff, Automatedon 10-2 Absolute Neut Normal 2.0-7.7 [facility] Comment on above: Result Comment: @PAT IENT DISCHARGED Performed By: #### L 500.2500, L100.0100 ####[facility] [address] [place], [address] HCT Normal 37-47 [facility] Comment on above: Result Comment: @PAT IENT DISCHARGED Performed By: #### L 500.2500, L100.0100 ####[facility] [address] [place], [address] HGB Normal 12.0-15.0 [facility] Comment on above: Result Comment: @PAT IENT DISCHARGED Performed By: #### L 500.2500, L100.0100 ####[facility] [address] [place], [address] MCH Normal 27.0-32.0 [facility] Comment on above: Result Comment: @PAT IENT DISCHARGED Performed By: #### L 500.2500, L100.0100 ####[facility] [address] [place], [address] MCHC Normal 32-36 [facility] Comment on above: Result Comment: @PAT IENT DISCHARGED Performed By: #### L 500.2500, L100.0100 ####[facility] [address] [place], [address] MCV Normal 81-99 [facility] Comment on above: Result Comment: @PAT IENT DISCHARGED Performed By: #### L 500.2500, L100.0100 ####[facility] [address] [place], [address] NEUT% Normal 47-70 [facility] Comment on above: Result Comment: @PAT IENT DISCHARGED Performed By: #### L 500.2500, L100.0100 ####[facility] [address] [place], [address] PLT Normal 150-450 [facility] Comment on above: Result Comment: @PAT IENT DISCHARGED Performed By: #### L 500.2500, L100.0100 ####[facility] [address] [place], [address] RBC Normal 4.2-5.4 [facility] Comment on above: Result Comment: @PAT IENT DISCHARGED Performed By: #### L 500.2500, L100.0100 ####[facility] [address] [place], [address] RDW CV Normal 11.6-14.6 [facility] Comment on above: Result Comment: @PAT IENT DISCHARGED Performed By: #### L 500.2500, L100.0100 ####[facility] [address] [place], [address] RDW SD Normal 35.1-43.9 [facility] Comment on above: Result Comment: @PAT IENT DISCHARGED Performed By: #### L 500.2500, L100.0100 ####[facility] [address] [place], [address] WBC Normal 4.4-11.0 [facility] Comment on above: Result Comment: @PAT IENT DISCHARGED Performed By: #### L 500.2500, L100.0100 ####[facility] [address] [place], [address] Basic Metabolic Profile (BMP )on 12-31-2023 BUN/CRE 36.1 RATIO High 10-20 [facility] Comment on above: Performed By: #### L 100.0100, L500.2500 ####[facility] [address] [place], [address] CA,Total 8.8 mg/dL Normal 8.5-10.1 [facility] Comment on above: Performed By: #### L 100.0100, L500.2500 ####[facility] [address] [place], [address] Chloride [Moles/Vol] 100 mmol/L Normal 98-107 [facility] Comment on above: Performed By: #### L 100.0100, L500.2500 ####[facility] [address] [place], [address] CO2 [Moles/Vol] 39.0 mmol/L High 21.0-32.0 [facility] Comment on above: Performed By: #### L 100.0100, L500.2500 ####[facility] [address] [place], [address] Creatinine [Mass/Vol] 0.66 mg/dL Normal 0.55-1.02 [facility] Comment on above: Result Comment: The validity of the calculated GFR GFRAA in patients over70 years has not been determined. Clinical correlation isessential. Performed By: #### L 100.0100, L500.2500 ####[facility] [address] [place], [address] ECRCL 135.40 ml/min Normal [facility] Comment on above: Performed By: #### L 100.0100, L500.2500 ####[facility] [address] [place], [address] EST GFR - AA 126 mL/min Normal >60 [facility] Comment on above: Result Comment: Afri can Japanese GFR Calc Performed By: #### L 100.0100, L500.2500 ####[facility] [address] [place], [address] GAP 1 Low 5-15 [facility] Comment on above: Performed By: #### L 100.0100, L500.2500 ####[facility] [address] [place], [address] GFR/1.73 sq M.predicted among non-blacks MDRD (S/P/Bld) [Vol rate/Area] 104 mL/min/{1.73_m2} Normal >60 [facility] Comment on above: Result Comment: Non- GFR Calc Performed By: #### L 100.0100, L500.2500 ####[facility] [address] [place], [address] Glucose [Mass/Vol] 88 mg/dL Normal 74-106 [facility] Comment on above: Performed By: #### L 100.0100, L500.2500 ####[facility] [address] [place], [address] Potassium [Moles/Vol] 4.0 mmol/L Normal 3.5-5.1 [facility] Comment on above: Performed By: #### L 100.0100, L500.2500 ####[facility] [address] [place], [address] Sodium [Moles/Vol] 140 mmol/L Normal 136-145 [facility] Comment on above: Performed By: #### L 100.0100, L500.2500 ####[facility] [address] [place], [address] Urea nitrogen [Mass/Vol] 24 mg/dL High 7-18 [facility] Comment on above: Performed By: #### L 100.0100, L500.2500 ####[facility] [address] [place], [address] CBC W/Diff, Automatedon 10-2 Absolute Lymph 2.82 X10 3/uL Normal 0.83-4.51 [facility] Comment on above: Performed By: #### L 100.0100, L500.2500 ####[facility] [address] [place], [address] Absolute Neut 8.3 X10 3/uL High 2.0-7.7 [facility] Comment on above: Performed By: #### L 100.0100, L500.2500 ####[facility] [address] [place], [address] Basophils/100 WBC (Bld) 0.6 % Normal 0-1 [facility] Comment on above: Performed By: #### L 100.0100, L500.2500 ####[facility] [address] [place], [address] Eosinophils/100 WBC (Bld) 3.6 % Normal 0-5 [facility] Comment on above: Performed By: #### L 100.0100, L500.2500 ####[facility] [address] [place], [address] Erythrocyte distribution width (RBC) [Ratio] 13.3 % Normal 11.6-14.6 [facility] Comment on above: Performed By: #### L 100.0100, L500.2500 ####[facility] [address] [place], [address] Hematocrit (Bld) [Volume fraction] 41.3 % Normal 37-47 [facility] Comment on above: Performed By: #### L 100.0100, L500.2500 ####[facility] [address] [place], [address] Hemoglobin (Bld) [Mass/Vol] 13.2 g/dL Normal 12.0-15.0 [facility] Comment on above: Performed By: #### L 100.0100, L500.2500 ####[facility] [address] [place], [address] IG% 1.100 High 0.0-0.9 [facility] Comment on above: Result Comment: IG% - Immature Granulocytes (promyelocytes, myelocytes andmetamyelocytes) > 1% indicates that a LEFT SHIFT is Present. Performed By: #### L 100.0100, L500.2500 ####[facility] [address] [place], [address] Lymphocytes/100 WBC (Bld) 21.3 % Normal 19-41 [facility] Comment on above: Performed By: #### L 100.0100, L500.2500 ####[facility] [address] [place], [address] MCH (RBC) [Entitic mass] 32.0 pg Normal 27.0-32.0 [facility] Comment on above: Performed By: #### L 100.0100, L500.2500 ####[facility] [address] [place], [address] MCHC (RBC) [Mass/Vol] 32.0 g/dL Normal 32-36 [facility] Comment on above: Performed By: #### L 100.0100, L500.2500 ####[facility] [address] [place], [address] MCV (RBC) [Entitic vol] 100.2 fL High 81-99 [facility] Comment on above: Performed By: #### L 100.0100, L500.2500 ####[facility] [address] [place], [address] Monocytes/100 WBC (Bld) 10.5 % High 0-10 [facility] Comment on above: Performed By: #### L 100.0100, L500.2500 ####[facility] [address] [place], [address] Neutrophils/100 WBC (Bld) 62.9 % Normal 47-70 [facility] Comment on above: Performed By: #### L 100.0100, L500.2500 ####[facility] [address] [place], [address] Nucleated RBC (Bld) [#/Vol] 0 10*3/uL Normal 0-5 [facility] Comment on above: Performed By: #### L 100.0100, L500.2500 ####[facility] [address] [place], [address] Platelet mean volume (Bld) [Entitic vol] 11.2 fL Normal 6.2-12.0 [facility] Comment on above: Performed By: #### L 100.0100, L500.2500 ####[facility] [address] [place], [address] Platelets (Bld) [#/Vol] 175 10*3/uL Normal 150-450 [facility] Comment on above: Performed By: #### L 100.0100, L500.2500 ####[facility] [address] [place], [address] RBC (Bld) [#/Vol] 4.12 10*6/uL Low 4.2-5.4 [facility] Comment on above: Performed By: #### L 100.0100, L500.2500 ####[facility] [address] [place], [address] RDW SD 49.1 fl High 35.1-43.9 [facility] Comment on above: Performed By: #### L 100.0100, L500.2500 ####[facility] [address] [place], [address] WBC (Bld) [#/Vol] 13.3 10*3/uL High 4.4-11.0 [facility] Comment on above: Performed By: #### L 100.0100, L500.2500 ####[facility] [address] [place], [address] Basic Metabolic Profile (BMP )on 12-30-2023 BUN/CRE 37.9 RATIO High 10-20 [facility] Comment on above: Performed By: #### L 500.2500, L100.0100 ####[facility] [address] [place], [address] CA,Total 8.7 mg/dL Normal 8.5-10.1 [facility] Comment on above: Performed By: #### L 500.2500, L100.0100 ####[facility] [address] [place], [address] Chloride [Moles/Vol] 98 mmol/L Normal 98-107 [facility] Comment on above: Performed By: #### L 500.2500, L100.0100 ####[facility] [address] [place], [address] CO2 [Moles/Vol] 36.0 mmol/L High 21.0-32.0 [facility] Comment on above: Performed By: #### L 500.2500, L100.0100 ####[facility] [address] [place], [address] Creatinine [Mass/Vol] 0.55 mg/dL Normal 0.55-1.02 [facility] Comment on above: Result Comment: The validity of the calculated GFR GFRAA in patients over70 years has not been determined. Clinical correlation isessential. Performed By: #### L 500.2500, L100.0100 ####[facility] [address] [place], [address] ECRCL 164.43 ml/min Normal [facility] Comment on above: Performed By: #### L 500.2500, L100.0100 ####[facility] [address] [place], [address] EST GFR - AA 155 mL/min Normal >60 [facility] Comment on above: Result Comment: Afri can Japanese GFR Calc Performed By: #### L 500.2500, L100.0100 ####[facility] [address] [place], [address] GAP 2 Low 5-15 [facility] Comment on above: Performed By: #### L 500.2500, L100.0100 ####[facility] [address] [place], [address] GFR/1.73 sq M.predicted among non-blacks MDRD (S/P/Bld) [Vol rate/Area] 128 mL/min/{1.73_m2} Normal >60 [facility] Comment on above: Result Comment: Non- GFR Calc Performed By: #### L 500.2500, L100.0100 ####[facility] [address] [place], [address] Glucose [Mass/Vol] 87 mg/dL Normal 74-106 [facility] Comment on above: Performed By: #### L 500.2500, L100.0100 ####[facility] [address] [place], [address] Potassium [Moles/Vol] 4.3 mmol/L Normal 3.5-5.1 [facility] Comment on above: Performed By: #### L 500.2500, L100.0100 ####[facility] [address] [place], [address] Sodium [Moles/Vol] 136 mmol/L Normal 136-145 [facility] Comment on above: Performed By: #### L 500.2500, L100.0100 ####[facility] [address] [place], [address] Urea nitrogen [Mass/Vol] 21 mg/dL High 7-18 [facility] Comment on above: Performed By: #### L 500.2500, L100.0100 ####[facility] [address] [place], [address] CBC W/Diff, Automatedon 10-2 Absolute Lymph 2.40 X10 3/uL Normal 0.83-4.51 [facility] Comment on above: Performed By: #### L 500.2500, L100.0100 ####[facility] [address] [place], [address] Absolute Neut 7.1 X10 3/uL Normal 2.0-7.7 [facility] Comment on above: Performed By: #### L 500.2500, L100.0100 ####[facility] [address] [place], [address] Basophils/100 WBC (Bld) 0.4 % Normal 0-1 [facility] Comment on above: Performed By: #### L 500.2500, L100.0100 ####[facility] [address] [place], [address] Eosinophils/100 WBC (Bld) 4.3 % Normal 0-5 [facility] Comment on above: Performed By: #### L 500.2500, L100.0100 ####[facility] [address] [place], [address] Erythrocyte distribution width (RBC) [Ratio] 13.2 % Normal 11.6-14.6 [facility] Comment on above: Performed By: #### L 500.2500, L100.0100 ####[facility] [address] [place], [address] Hematocrit (Bld) [Volume fraction] 39.8 % Normal 37-47 [facility] Comment on above: Performed By: #### L 500.2500, L100.0100 ####[facility] [address] [place], [address] Hemoglobin (Bld) [Mass/Vol] 12.7 g/dL Normal 12.0-15.0 [facility] Comment on above: Performed By: #### L 500.2500, L100.0100 ####[facility] [address] [place], [address] IG% 0.800 Normal 0.0-0.9 [facility] Comment on above: Result Comment: IG% - Immature Granulocytes (promyelocytes, myelocytes andmetamyelocytes) > 1% indicates that a LEFT SHIFT is Present. Performed By: #### L 500.2500, L100.0100 ####[facility] [address] [place], [address] Lymphocytes/100 WBC (Bld) 21.3 % Normal 19-41 [facility] Comment on above: Performed By: #### L 500.2500, L100.0100 ####[facility] [address] [place], [address] MCH (RBC) [Entitic mass] 32.2 pg High 27.0-32.0 [facility] Comment on above: Performed By: #### L 500.2500, L100.0100 ####[facility] [address] [place], [address] MCHC (RBC) [Mass/Vol] 31.9 g/dL Low 32-36 [facility] Comment on above: Performed By: #### L 500.2500, L100.0100 ####[facility] [address] [place], [address] MCV (RBC) [Entitic vol] 101.0 fL High 81-99 [facility] Comment on above: Performed By: #### L 500.2500, L100.0100 ####[facility] [address] [place], [address] Monocytes/100 WBC (Bld) 10.1 % High 0-10 [facility] Comment on above: Performed By: #### L 500.2500, L100.0100 ####[facility] [address] [place], [address] Neutrophils/100 WBC (Bld) 63.1 % Normal 47-70 [facility] Comment on above: Performed By: #### L 500.2500, L100.0100 ####[facility] [address] [place], [address] Nucleated RBC (Bld) [#/Vol] 0 10*3/uL Normal 0-5 [facility] Comment on above: Performed By: #### L 500.2500, L100.0100 ####[facility] [address] [place], [address] Platelet mean volume (Bld) [Entitic vol] 10.5 fL Normal 6.2-12.0 [facility] Comment on above: Performed By: #### L 500.2500, L100.0100 ####[facility] [address] [place], [address] Platelets (Bld) [#/Vol] 152 10*3/uL Normal 150-450 [facility] Comment on above: Performed By: #### L 500.2500, L100.0100 ####[facility] [address] [place], [address] RBC (Bld) [#/Vol] 3.94 10*6/uL Low 4.2-5.4 [facility] Comment on above: Performed By: #### L 500.2500, L100.0100 ####[facility] [address] [place], [address] RDW SD 49.2 fl High 35.1-43.9 [facility] Comment on above: Performed By: #### L 500.2500, L100.0100 ####[facility] [address] [place], [address] WBC (Bld) [#/Vol] 11.3 10*3/uL High 4.4-11.0 [facility] Comment on above: Performed By: #### L 500.2500, L100.0100 ####[facility] [address] [place], [address] Basic Metabolic Profile (BMP )on 12-30-2023 BUN/CRE 38.0 RATIO High 10-20 [facility] Comment on above: Performed By: #### L 100.0100, L500.2500 ####[facility] [address] [place], [address] CA,Total 8.6 mg/dL Normal 8.5-10.1 [facility] Comment on above: Performed By: #### L 100.0100, L500.2500 ####[facility] [address] [place], [address] Chloride [Moles/Vol] 100 mmol/L Normal 98-107 [facility] Comment on above: Performed By: #### L 100.0100, L500.2500 ####[facility] [address] [place], [address] CO2 [Moles/Vol] 37.0 mmol/L High 21.0-32.0 [facility] Comment on above: Performed By: #### L 100.0100, L500.2500 ####[facility] [address] [place], [address] Creatinine [Mass/Vol] 0.55 mg/dL Normal 0.55-1.02 [facility] Comment on above: Result Comment: The validity of the calculated GFR GFRAA in patients over70 years has not been determined. Clinical correlation isessential. Performed By: #### L 100.0100, L500.2500 ####[facility] [address] [place], [address] ECRCL 165.37 ml/min Normal [facility] Comment on above: Performed By: #### L 100.0100, L500.2500 ####[facility] [address] [place], [address] EST GFR - AA 155 mL/min Normal >60 [facility] Comment on above: Result Comment: Afri can Japanese GFR Calc Performed By: #### L 100.0100, L500.2500 ####[facility] [address] [place], [address] GAP 1 Low 5-15 [facility] Comment on above: Performed By: #### L 100.0100, L500.2500 ####[facility] [address] [place], [address] GFR/1.73 sq M.predicted among non-blacks MDRD (S/P/Bld) [Vol rate/Area] 128 mL/min/{1.73_m2} Normal >60 [facility] Comment on above: Result Comment: Non- GFR Calc Performed By: #### L 100.0100, L500.2500 ####[facility] [address] [place], [address] Glucose [Mass/Vol] 82 mg/dL Normal 74-106 [facility] Comment on above: Performed By: #### L 100.0100, L500.2500 ####[facility] [address] [place], [address] Potassium [Moles/Vol] 4.5 mmol/L Normal 3.5-5.1 [facility] Comment on above: Result Comment: Mode rate Hemolysis, Result may be falsely increased. Performed By: #### L 100.0100, L500.2500 ####[facility] [address] [place], [address] Sodium [Moles/Vol] 138 mmol/L Normal 136-145 [facility] Comment on above: Performed By: #### L 100.0100, L500.2500 ####[facility] [address] [place], [address] Urea nitrogen [Mass/Vol] 21 mg/dL High 7-18 [facility] Comment on above: Performed By: #### L 100.0100, L500.2500 ####[facility] [address] [place], [address] CBC W/Diff, Automatedon 10-2 2-2023 Absolute Lymph 2.42 X10 3/uL Normal 0.83-4.51 [facility] Comment on above: Performed By: #### L 100.0100, L500.2500 ####[facility] [address] [place], [address] Absolute Neut 7.5 X10 3/uL Normal 2.0-7.7 [facility] Comment on above: Performed By: #### L 100.0100, L500.2500 ####[facility] [address] [place], [address] Basophils/100 WBC (Bld) 0.4 % Normal 0-1 [facility] Comment on above: Performed By: #### L 100.0100, L500.2500 ####[facility] [address] [place], [address] Eosinophils/100 WBC (Bld) 3.5 % Normal 0-5 [facility] Comment on above: Performed By: #### L 100.0100, L500.2500 ####[facility] [address] [place], [address] Erythrocyte distribution width (RBC) [Ratio] 13.4 % Normal 11.6-14.6 [facility] Comment on above: Performed By: #### L 100.0100, L500.2500 ####[facility] [address] [place], [address] Hematocrit (Bld) [Volume fraction] 38.5 % Normal 37-47 [facility] Comment on above: Performed By: #### L 100.0100, L500.2500 ####[facility] [address] [place], [address] Hemoglobin (Bld) [Mass/Vol] 12.1 g/dL Normal 12.0-15.0 [facility] Comment on above: Performed By: #### L 100.0100, L500.2500 ####[facility] [address] [place], [address] IG% 0.600 Normal 0.0-0.9 [facility] Comment on above: Result Comment: IG% - Immature Granulocytes (promyelocytes, myelocytes andmetamyelocytes) > 1% indicates that a LEFT SHIFT is Present. Performed By: #### L 100.0100, L500.2500 ####[facility] [address] [place], [address] Lymphocytes/100 WBC (Bld) 20.9 % Normal 19-41 [facility] Comment on above: Performed By: #### L 100.0100, L500.2500 ####[facility] [address] [place], [address] MCH (RBC) [Entitic mass] 31.8 pg Normal 27.0-32.0 [facility] Comment on above: Performed By: #### L 100.0100, L500.2500 ####[facility] [address] [place], [address] MCHC (RBC) [Mass/Vol] 31.4 g/dL Low 32-36 [facility] Comment on above: Performed By: #### L 100.0100, L500.2500 ####[facility] [address] [place], [address] MCV (RBC) [Entitic vol] 101.3 fL High 81-99 [facility] Comment on above: Performed By: #### L 100.0100, L500.2500 ####[facility] [address] [place], [address] Monocytes/100 WBC (Bld) 9.5 % Normal 0-10 [facility] Comment on above: Performed By: #### L 100.0100, L500.2500 ####[facility] [address] [place], [address] Neutrophils/100 WBC (Bld) 65.1 % Normal 47-70 [facility] Comment on above: Performed By: #### L 100.0100, L500.2500 ####[facility] [address] [place], [address] Nucleated RBC (Bld) [#/Vol] 0 10*3/uL Normal 0-5 [facility] Comment on above: Performed By: #### L 100.0100, L500.2500 ####[facility] [address] [place], [address] Platelet mean volume (Bld) [Entitic vol] 10.8 fL Normal 6.2-12.0 [facility] Comment on above: Performed By: #### L 100.0100, L500.2500 ####[facility] [address] [place], [address] Platelets (Bld) [#/Vol] 177 10*3/uL Normal 150-450 [facility] Comment on above: Performed By: #### L 100.0100, L500.2500 ####[facility] [address] [place], [address] RBC (Bld) [#/Vol] 3.80 10*6/uL Low 4.2-5.4 [facility] Comment on above: Performed By: #### L 100.0100, L500.2500 ####[facility] [address] [place], [address] RDW SD 49.7 fl High 35.1-43.9 [facility] Comment on above: Performed By: #### L 100.0100, L500.2500 ####[facility] [address] [place], [address] WBC (Bld) [#/Vol] 11.6 10*3/uL High 4.4-11.0 [facility] Comment on above: Performed By: #### L 100.0100, L500.2500 ####[facility] [address] [place], [address] Basic Metabolic Profile (BMP )on 12-29-2023 BUN/CRE 33.2 RATIO High 10-20 [facility] Comment on above: Performed By: #### L 100.0100, L500.2500 ####[facility] [address] [place], [address] CA,Total 8.2 mg/dL Low 8.5-10.1 [facility] Comment on above: Performed By: #### L 100.0100, L500.2500 ####[facility] [address] [place], [address] Chloride [Moles/Vol] 103 mmol/L Normal 98-107 [facility] Comment on above: Performed By: #### L 100.0100, L500.2500 ####[facility] [address] [place], [address] CO2 [Moles/Vol] 38.0 mmol/L High 21.0-32.0 [facility] Comment on above: Performed By: #### L 100.0100, L500.2500 ####[facility] [address] [place], [address] Creatinine [Mass/Vol] 0.57 mg/dL Normal 0.55-1.02 [facility] Comment on above: Result Comment: The validity of the calculated GFR GFRAA in patients over70 years has not been determined. Clinical correlation isessential. Performed By: #### L 100.0100, L500.2500 ####[facility] [address] [place], [address] ECRCL 163.50 ml/min Normal [facility] Comment on above: Performed By: #### L 100.0100, L500.2500 ####[facility] [address] [place], [address] EST GFR - AA 149 mL/min Normal >60 [facility] Comment on above: Result Comment: Afri can Japanese GFR Calc Performed By: #### L 100.0100, L500.2500 ####[facility] [address] [place], [address] GAP 0 Low 5-15 [facility] Comment on above: Performed By: #### L 100.0100, L500.2500 ####[facility] [address] [place], [address] GFR/1.73 sq M.predicted among non-blacks MDRD (S/P/Bld) [Vol rate/Area] 123 mL/min/{1.73_m2} Normal >60 [facility] Comment on above: Result Comment: Non- GFR Calc Performed By: #### L 100.0100, L500.2500 ####[facility] [address] [place], [address] Glucose [Mass/Vol] 88 mg/dL Normal 74-106 [facility] Comment on above: Performed By: #### L 100.0100, L500.2500 ####[facility] [address] [place], [address] Potassium [Moles/Vol] 4.0 mmol/L Normal 3.5-5.1 [facility] Comment on above: Performed By: #### L 100.0100, L500.2500 ####[facility] [address] [place], [address] Sodium [Moles/Vol] 140 mmol/L Normal 136-145 [facility] Comment on above: Performed By: #### L 100.0100, L500.2500 ####[facility] [address] [place], [address] Urea nitrogen [Mass/Vol] 19 mg/dL High 7-18 [facility] Comment on above: Performed By: #### L 100.0100, L500.2500 ####[facility] [address] [place], [address] CBC W/Diff, Automatedon 10-2 Absolute Lymph 2.46 X10 3/uL Normal 0.83-4.51 [facility] Comment on above: Performed By: #### L 100.0100, L500.2500 ####[facility] [address] [place], [address] Absolute Neut 7.4 X10 3/uL Normal 2.0-7.7 [facility] Comment on above: Performed By: #### L 100.0100, L500.2500 ####[facility] [address] [place], [address] Basophils/100 WBC (Bld) 0.4 % Normal 0-1 [facility] Comment on above: Performed By: #### L 100.0100, L500.2500 ####[facility] [address] [place], [address] Eosinophils/100 WBC (Bld) 2.7 % Normal 0-5 [facility] Comment on above: Performed By: #### L 100.0100, L500.2500 ####[facility] [address] [place], [address] Erythrocyte distribution width (RBC) [Ratio] 13.4 % Normal 11.6-14.6 [facility] Comment on above: Performed By: #### L 100.0100, L500.2500 ####[facility] [address] [place], [address] Hematocrit (Bld) [Volume fraction] 36.0 % Low 37-47 [facility] Comment on above: Performed By: #### L 100.0100, L500.2500 ####[facility] [address] [place], [address] Hemoglobin (Bld) [Mass/Vol] 11.2 g/dL Low 12.0-15.0 [facility] Comment on above: Performed By: #### L 100.0100, L500.2500 ####[facility] [address] [place], [address] IG% 0.700 Normal 0.0-0.9 [facility] Comment on above: Result Comment: IG% - Immature Granulocytes (promyelocytes, myelocytes andmetamyelocytes) > 1% indicates that a LEFT SHIFT is Present. Performed By: #### L 100.0100, L500.2500 ####[facility] [address] [place], [address] Lymphocytes/100 WBC (Bld) 21.7 % Normal 19-41 [facility] Comment on above: Performed By: #### L 100.0100, L500.2500 ####[facility] [address] [place], [address] MCH (RBC) [Entitic mass] 31.9 pg Normal 27.0-32.0 [facility] Comment on above: Performed By: #### L 100.0100, L500.2500 ####[facility] [address] [place], [address] MCHC (RBC) [Mass/Vol] 31.1 g/dL Low 32-36 [facility] Comment on above: Performed By: #### L 100.0100, L500.2500 ####[facility] [address] [place], [address] MCV (RBC) [Entitic vol] 102.6 fL High 81-99 [facility] Comment on above: Performed By: #### L 100.0100, L500.2500 ####[facility] [address] [place], [address] Monocytes/100 WBC (Bld) 9.2 % Normal 0-10 [facility] Comment on above: Performed By: #### L 100.0100, L500.2500 ####[facility] [address] [place], [address] Neutrophils/100 WBC (Bld) 65.3 % Normal 47-70 [facility] Comment on above: Performed By: #### L 100.0100, L500.2500 ####[facility] [address] [place], [address] Nucleated RBC (Bld) [#/Vol] 0 10*3/uL Normal 0-5 [facility] Comment on above: Performed By: #### L 100.0100, L500.2500 ####[facility] [address] [place], [address] Platelet mean volume (Bld) [Entitic vol] 10.8 fL Normal 6.2-12.0 [facility] Comment on above: Performed By: #### L 100.0100, L500.2500 ####[facility] [address] [place], [address] Platelets (Bld) [#/Vol] 154 10*3/uL Normal 150-450 [facility] Comment on above: Performed By: #### L 100.0100, L500.2500 ####[facility] [address] [place], [address] RBC (Bld) [#/Vol] 3.51 10*6/uL Low 4.2-5.4 [facility] Comment on above: Performed By: #### L 100.0100, L500.2500 ####[facility] [address] [place], [address] RDW SD 49.7 fl High 35.1-43.9 [facility] Comment on above: Performed By: #### L 100.0100, L500.2500 ####[facility] [address] [place], [address] WBC (Bld) [#/Vol] 11.4 10*3/uL High 4.4-11.0 [facility] Comment on above: Performed By: #### L 100.0100, L500.2500 ####[facility] [address] [place], [address] CTA Chest W/WO Contraston CTA Chest W/WO Contrast Normal [facility] D-Dimer Quantitative (DVT/PE )on 12-29-2023 D-DIMER QUANT 2.44 FEU/ug/m Invalid Interpretation Code 0.27-0.49 [facility] Comment on above: Order Comment: CRITI LORAINE VALUE CALLED TO gabi de la fuente12/29/23 0933 Brigette Andino.RESULTS READ BACK BY same. Result Comment: D-Di alexandrea ELEVATED (>0.49): Additional studies and clinicalassessments are indicated to conclude diagnosis of:Deep Vein Thrombosis (DVT) or Pulmonary Embolism (PE) Performed By: #### L 300.8000 ####[facility] [address] [place], [address] Basic Metabolic Profile (BMP )on 12-27-2023 BUN/CRE 34.3 RATIO High 12-27 [facility] Comment on above: Performed By: #### L 500.2500, L100.0100 ####[facility] [address] [place], [address] CA,Total 8.3 mg/dL Low 8.5-10.1 [facility] Comment on above: Performed By: #### L 500.2500, L100.0100 ####[facility] [address] [place], [address] Chloride [Moles/Vol] 104 mmol/L Normal 98-107 [facility] Comment on above: Performed By: #### L 500.2500, L100.0100 ####[facility] [address] [place], [address] CO2 [Moles/Vol] 35.0 mmol/L High 21.0-32.0 [facility] Comment on above: Performed By: #### L 500.2500, L100.0100 ####[facility] [address] [place], [address] Creatinine [Mass/Vol] 0.61 mg/dL Normal 0.55-1.02 [facility] Comment on above: Result Comment: The validity of the calculated GFR GFRAA in patients over70 years has not been determined. Clinical correlation isessential. Performed By: #### L 500.2500, L100.0100 ####[facility] [address] [place], [address] ECRCL 152.78 ml/min Normal [facility] Comment on above: Performed By: #### L 500.2500, L100.0100 ####[facility] [address] [place], [address] EST GFR - AA 138 mL/min Normal >60 [facility] Comment on above: Result Comment: Afri can Japanese GFR Calc Performed By: #### L 500.2500, L100.0100 ####[facility] [address] [place], [address] GAP 0 Low 5-15 [facility] Comment on above: Performed By: #### L 500.2500, L100.0100 ####[facility] [address] [place], [address] GFR/1.73 sq M.predicted among non-blacks MDRD (S/P/Bld) [Vol rate/Area] 114 mL/min/{1.73_m2} Normal >60 [facility] Comment on above: Result Comment: Non- GFR Calc Performed By: #### L 500.2500, L100.0100 ####[facility] [address] [place], [address] Glucose [Mass/Vol] 93 mg/dL Normal 74-106 [facility] Comment on above: Performed By: #### L 500.2500, L100.0100 ####[facility] [address] [place], [address] Potassium [Moles/Vol] 4.2 mmol/L Normal 3.5-5.1 [facility] Comment on above: Performed By: #### L 500.2500, L100.0100 ####[facility] [address] [place], [address] Sodium [Moles/Vol] 139 mmol/L Normal 136-145 [facility] Comment on above: Performed By: #### L 500.2500, L100.0100 ####[facility] [address] [place], [address] Urea nitrogen [Mass/Vol] 21 mg/dL High 7-18 [facility] Comment on above: Performed By: #### L 500.2500, L100.0100 ####[facility] [address] [place], [address] CBC W/Diff, Automatedon 10-2 0-2024 Absolute Lymph 2.41 X10 3/uL Normal 0.83-4.51 [facility] Comment on above: Performed By: #### L 500.2500, L100.0100 ####[facility] [address] [place], [address] Absolute Neut 6.5 X10 3/uL Normal 2.0-7.7 [facility] Comment on above: Performed By: #### L 500.2500, L100.0100 ####[facility] [address] [place], [address] Basophils/100 WBC (Bld) 0.4 % Normal 0-1 [facility] Comment on above: Performed By: #### L 500.2500, L100.0100 ####[facility] [address] [place], [address] Eosinophils/100 WBC (Bld) 3.3 % Normal 0-5 [facility] Comment on above: Performed By: #### L 500.2500, L100.0100 ####[facility] [address] [place], [address] Erythrocyte distribution width (RBC) [Ratio] 13.3 % Normal 11.6-14.6 [facility] Comment on above: Performed By: #### L 500.2500, L100.0100 ####[facility] [address] [place], [address] Hematocrit (Bld) [Volume fraction] 37.8 % Normal 37-47 [facility] Comment on above: Performed By: #### L 500.2500, L100.0100 ####[facility] [address] [place], [address] Hemoglobin (Bld) [Mass/Vol] 11.8 g/dL Low 12.0-15.0 [facility] Comment on above: Performed By: #### L 500.2500, L100.0100 ####[facility] [address] [place], [address] IG% 1.000 High 0.0-0.9 [facility] Comment on above: Result Comment: IG% - Immature Granulocytes (promyelocytes, myelocytes andmetamyelocytes) > 1% indicates that a LEFT SHIFT is Present. Performed By: #### L 500.2500, L100.0100 ####[facility] [address] [place], [address] Lymphocytes/100 WBC (Bld) 23.1 % Normal 19-41 [facility] Comment on above: Performed By: #### L 500.2500, L100.0100 ####[facility] [address] [place], [address] MCH (RBC) [Entitic mass] 32.5 pg High 27.0-32.0 [facility] Comment on above: Performed By: #### L 500.2500, L100.0100 ####[facility] [address] [place], [address] MCHC (RBC) [Mass/Vol] 31.2 g/dL Low 32-36 [facility] Comment on above: Performed By: #### L 500.2500, L100.0100 ####[facility] [address] [place], [address] MCV (RBC) [Entitic vol] 104.1 fL High 81-99 [facility] Comment on above: Performed By: #### L 500.2500, L100.0100 ####[facility] [address] [place], [address] Monocytes/100 WBC (Bld) 10.2 % High 0-10 [facility] Comment on above: Performed By: #### L 500.2500, L100.0100 ####[facility] [address] [place], [address] Neutrophils/100 WBC (Bld) 62.0 % Normal 47-70 [facility] Comment on above: Performed By: #### L 500.2500, L100.0100 ####[facility] [address] [place], [address] Nucleated RBC (Bld) [#/Vol] 0 10*3/uL Normal 0-5 [facility] Comment on above: Performed By: #### L 500.2500, L100.0100 ####[facility] [address] [place], [address] Platelet mean volume (Bld) [Entitic vol] 11.2 fL Normal 6.2-12.0 [facility] Comment on above: Performed By: #### L 500.2500, L100.0100 ####[facility] [address] [place], [address] Platelets (Bld) [#/Vol] 142 10*3/uL Low 150-450 [facility] Comment on above: Performed By: #### L 500.2500, L100.0100 ####[facility] [address] [place], [address] RBC (Bld) [#/Vol] 3.63 10*6/uL Low 4.2-5.4 [facility] Comment on above: Performed By: #### L 500.2500, L100.0100 ####[facility] [address] [place], [address] RDW SD 50.2 fl High 35.1-43.9 [facility] Comment on above: Performed By: #### L 500.2500, L100.0100 ####[facility] [address] [place], [address] WBC (Bld) [#/Vol] 10.5 10*3/uL Normal 4.4-11.0 [facility] Comment on above: Performed By: #### L 500.2500, L100.0100 ####[facility] [address] [place], [address] Bedside Glucoseon 12-27-2023 FINGERSTICK GLU 73 mg/dL Low 74-106 [facility] Comment on above: Result Comment: ETHAN PRITCHETT OF PATIENT CARE PER NURSING PROTOCOL Performed By: #### L 501.080 ####[facility] [address] [place], [address] CBC W/Diff, Automatedon 12-08 Absolute Lymph 3.05 X10 3/uL Normal 0.83-4.51 [facility] Comment on above: Performed By: #### L 500.4050, L100.0100, L501.9520, L500.4100 ####[facility] [address] [place], [address] Absolute Neut 6.2 X10 3/uL Normal 2.0-7.7 [facility] Comment on above: Performed By: #### L 500.4050, L100.0100, L501.9520, L500.4100 ####[facility] [address] [place], [address] Basophils/100 WBC (Bld) 0.5 % Normal 0-1 [facility] Comment on above: Performed By: #### L 500.4050, L100.0100, L501.9520, L500.4100 ####[facility] [address] [place], [address] Eosinophils/100 WBC (Bld) 3.5 % Normal 0-5 [facility] Comment on above: Performed By: #### L 500.4050, L100.0100, L501.9520, L500.4100 ####[facility] [address] [place], [address] Erythrocyte distribution width (RBC) [Ratio] 13.4 % Normal 11.6-14.6 [facility] Comment on above: Performed By: #### L 500.4050, L100.0100, L501.9520, L500.4100 ####[facility] [address] [place], [address] Hematocrit (Bld) [Volume fraction] 39.7 % Normal 37-47 [facility] Comment on above: Performed By: #### L 500.4050, L100.0100, L501.9520, L500.4100 ####[facility] [address] [place], [address] Hemoglobin (Bld) [Mass/Vol] 12.2 g/dL Normal 12.0-15.0 [facility] Comment on above: Performed By: #### L 500.4050, L100.0100, L501.9520, L500.4100 ####[facility] [address] [place], [address] IG% 0.600 Normal 0.0-0.9 [facility] Comment on above: Result Comment: IG% - Immature Granulocytes (promyelocytes, myelocytes andmetamyelocytes) > 1% indicates that a LEFT SHIFT is Present. Performed By: #### L 500.4050, L100.0100, L501.9520, L500.4100 ####[facility] [address] [place], [address] Lymphocytes/100 WBC (Bld) 28.1 % Normal 19-41 [facility] Comment on above: Performed By: #### L 500.4050, L100.0100, L501.9520, L500.4100 ####[facility] [address] [place], [address] MCH (RBC) [Entitic mass] 31.8 pg Normal 27.0-32.0 [facility] Comment on above: Performed By: #### L 500.4050, L100.0100, L501.9520, L500.4100 ####[facility] [address] [place], [address] MCHC (RBC) [Mass/Vol] 30.7 g/dL Low 32-36 [facility] Comment on above: Performed By: #### L 500.4050, L100.0100, L501.9520, L500.4100 ####[facility] [address] [place], [address] MCV (RBC) [Entitic vol] 103.4 fL High 81-99 [facility] Comment on above: Performed By: #### L 500.4050, L100.0100, L501.9520, L500.4100 ####[facility] [address] [place], [address] Monocytes/100 WBC (Bld) 10.6 % High 0-10 [facility] Comment on above: Performed By: #### L 500.4050, L100.0100, L501.9520, L500.4100 ####[facility] [address] [place], [address] Neutrophils/100 WBC (Bld) 56.7 % Normal 47-70 [facility] Comment on above: Performed By: #### L 500.4050, L100.0100, L501.9520, L500.4100 ####[facility] [address] [place], [address] Nucleated RBC (Bld) [#/Vol] 0 10*3/uL Normal 0-5 [facility] Comment on above: Performed By: #### L 500.4050, L100.0100, L501.9520, L500.4100 ####[facility] [address] [place], [address] Platelet mean volume (Bld) [Entitic vol] 10.9 fL Normal 6.2-12.0 [facility] Comment on above: Performed By: #### L 500.4050, L100.0100, L501.9520, L500.4100 ####[facility] [address] [place], [address] Platelets (Bld) [#/Vol] 135 10*3/uL Low 150-450 [facility] Comment on above: Performed By: #### L 500.4050, L100.0100, L501.9520, L500.4100 ####[facility] [address] [place], [address] RBC (Bld) [#/Vol] 3.84 10*6/uL Low 4.2-5.4 [facility] Comment on above: Performed By: #### L 500.4050, L100.0100, L501.9520, L500.4100 ####[facility] [address] [place], [address] RDW SD 50.4 fl High 35.1-43.9 [facility] Comment on above: Performed By: #### L 500.4050, L100.0100, L501.9520, L500.4100 ####[facility] [address] [place], [address] WBC (Bld) [#/Vol] 10.9 10*3/uL Normal 4.4-11.0 [facility] Comment on above: Performed By: #### L 500.4050, L100.0100, L501.9520, L500.4100 ####[facility] [address] [place], [address] Comprehensive Metabolic Prof ilananda 12-27-2023 Albumin [Mass/Vol] 2.8 g/dL Low 3.2-5.0 [facility] Comment on above: Performed By: #### L 500.4050, L100.0100, L501.9520, L500.4100 ####[facility] [address] [place], [address] Albumin/Globulin [Mass ratio] 0.8 {ratio} Low 0.9-2.4 [facility] Comment on above: Performed By: #### L 500.4050, L100.0100, L501.9520, L500.4100 ####[facility] [address] [place], [address] ALK P 92 U/L Normal 45-117 [facility] Comment on above: Performed By: #### L 500.4050, L100.0100, L501.9520, L500.4100 ####[facility] [address] [place], [address] ALT [Catalytic activity/Vol] 92 U/L High 13-56 [facility] Comment on above: Performed By: #### L 500.4050, L100.0100, L501.9520, L500.4100 ####[facility] [address] [place], [address] AST [Catalytic activity/Vol] 76 U/L High 15-37 [facility] Comment on above: Performed By: #### L 500.4050, L100.0100, L501.9520, L500.4100 ####[facility] [address] [place], [address] Bilirubin [Mass/Vol] 0.30 mg/dL Normal 0.20-1.00 [facility] Comment on above: Result Comment: For patients on eltrombopag therapy, use of Dimension [place] TBIL is not recommended. Performed By: #### L 500.4050, L100.0100, L501.9520, L500.4100 ####[facility] [address] [place], [address] BUN/CRE 41.0 RATIO High 10-20 [facility] Comment on above: Performed By: #### L 500.4050, L100.0100, L501.9520, L500.4100 ####[facility] [address] [place], [address] CA,Total 8.1 mg/dL Low 8.5-10.1 [facility] Comment on above: Performed By: #### L 500.4050, L100.0100, L501.9520, L500.4100 ####[facility] [address] [place], [address] Chloride [Moles/Vol] 106 mmol/L Normal 98-107 [facility] Comment on above: Performed By: #### L 500.4050, L100.0100, L501.9520, L500.4100 ####[facility] [address] [place], [address] CO2 [Moles/Vol] 33.0 mmol/L High 21.0-32.0 [facility] Comment on above: Performed By: #### L 500.4050, L100.0100, L501.9520, L500.4100 ####[facility] [address] [place], [address] Creatinine [Mass/Vol] 0.54 mg/dL Low 0.55-1.02 [facility] Comment on above: Result Comment: The validity of the calculated GFR GFRAA in patients over70 years has not been determined. Clinical correlation isessential. Performed By: #### L 500.4050, L100.0100, L501.9520, L500.4100 ####[facility] [address] [place], [address] ECRCL 175.01 ml/min Normal [facility] Comment on above: Performed By: #### L 500.4050, L100.0100, L501.9520, L500.4100 ####[facility] [address] [place], [address] EST GFR - AA 161 mL/min Normal >60 [facility] Comment on above: Result Comment: Afri can Japanese GFR Calc Performed By: #### L 500.4050, L100.0100, L501.9520, L500.4100 ####[facility] [address] [place], [address] GAP 1 Low 5-15 [facility] Comment on above: Performed By: #### L 500.4050, L100.0100, L501.9520, L500.4100 ####[facility] [address] [place], [address] GFR/1.73 sq M.predicted among non-blacks MDRD (S/P/Bld) [Vol rate/Area] 133 mL/min/{1.73_m2} Normal >60 [facility] Comment on above: Result Comment: Non- GFR Calc Performed By: #### L 500.4050, L100.0100, L501.9520, L500.4100 ####[facility] [address] [place], [address] Globulin (S) [Mass/Vol] 3.4 g/dL Normal 2.2-4.2 [facility] Comment on above: Performed By: #### L 500.4050, L100.0100, L501.9520, L500.4100 ####[facility] [address] [place], [address] Glucose [Mass/Vol] 118 mg/dL High 74-106 [facility] Comment on above: Result Comment: Fast ing Glucose result from 100 to 125 mg/dLsuggests IMPAIRED HOMEOSTASIS per A.D.A. criteria. Performed By: #### L 500.4050, L100.0100, L501.9520, L500.4100 ####[facility] [address] [place], [address] Potassium [Moles/Vol] 4.1 mmol/L Normal 3.5-5.1 [facility] Comment on above: Performed By: #### L 500.4050, L100.0100, L501.9520, L500.4100 ####[facility] [address] [place], [address] Sodium [Moles/Vol] 141 mmol/L Normal 136-145 [facility] Comment on above: Performed By: #### L 500.4050, L100.0100, L501.9520, L500.4100 ####[facility] [address] [place], [address] T PROT 6.2 g/dL Low 6.4-8.2 [facility] Comment on above: Performed By: #### L 500.4050, L100.0100, L501.9520, L500.4100 ####[facility] [address] [place], [address] Urea nitrogen [Mass/Vol] 22 mg/dL High 7-18 [facility] Comment on above: Performed By: #### L 500.4050, L100.0100, L501.9520, L500.4100 ####[facility] [address] [place], [address] Consultation - Cardiologyon 12-27-2023 Consultation - Cardiology Normal [facility] Echo Complete W/ Contraston 12-27-2023 Echo Complete W/ Contrast Normal [facility] L501.4020on 12-27-2023 TROPONIN-I HS 256 pg/mL Invalid Interpretation Code 3.0-54.0 [facility] Comment on above: Order Comment: 'TROP ' Serial specimen #1, #2 or #3: 1 Result Comment: Crit ical Result(s) Called at: 09:38:31 12/27/2023 by:Renu Villatoro to Allan. Results read back by same. Please Note: New Test Units and Gender Specific Reference Ranges. For more information see Policy Stat Procedure [place] High Sensitivity Troponin (TNIH) and attachments. Performed By: #### L 501.4020 ####[facility] [address] [place], [address] Lipid Profileon 12-27-2023 Cholesterol [Mass/Vol] 112 mg/dL Normal 200 [facility] Comment on above: Result Comment: <200 mg/dL Desirable 200-240 mg/dL Borderline >240 mg/dL High Risk Performed By: #### L 500.4050, L100.0100, L501.9520, L500.4100 ####[facility] [address] [place], [address] Cholesterol in HDL [Mass/Vol] 52 mg/dL Normal [facility] Comment on above: Result Comment: The drugs N-Acetylcysteine and Metamizole may falselydepress this assay. Reference Range HDL <40 mg/dL Low HDL Cholesterol HDL >or= 60 mg/dL High HDL Cholesterol Performed By: #### L 500.4050, L100.0100, L501.9520, L500.4100 ####[facility] [address] [place], [address] Cholesterol in LDL [Mass/Vol] 47 mg/dL Normal 0-130 [facility] Comment on above: Performed By: #### L 500.4050, L100.0100, L501.9520, L500.4100 ####[facility] [address] [place], [address] Cholesterol in VLDL [Mass/Vol] 13 mg/dL Normal 5-40 [facility] Comment on above: Performed By: #### L 500.4050, L100.0100, L501.9520, L500.4100 ####[facility] [address] [place], [address] Triglyceride [Mass/Vol] 63 mg/dL Normal [facility] Comment on above: Result Comment: The drugs N-Acetylcysteine and Metamizole may falselydepress this assay.Serum Triglycerides Reference Interval Normal <150 mg/dL Borderline high 150 - 199 mg/dL High 200 - 499 mg/dL Very High > or = 500 mg/dL Performed By: #### L 500.4050, L100.0100, L501.9520, L500.4100 ####[facility] [address] [place], [address] Partial Thromboplast Timeon 12-27-2023 aPTT Coag (Bld) [Time] 47.5 s High 24.1-36.2 [facility] Comment on above: Performed By: #### L 300.4310 ####[facility] [address] [place], [address] aPTT Coag (Bld) [Time] 95.2 s Invalid Interpretation Code 24.1-36.2 [facility] Comment on above: Result Comment: CRIT ICAL VALUE CALLED TO [id number]/19/24 0143 Teresa Cardenas.RESULTS READ BACK BY SAME. Performed By: #### L 300.4310 ####[facility] [address] [place], [address] Thyroid Stim Hormone (TSH)on 12-27-2023 TSH 2.840 uIU/mL Normal 0.358-3.740 [facility] Comment on above: Performed By: #### L 500.4050, L100.0100, L501.9520, L500.4100 ####[facility] [address] [place], [address] 12 Lead EKGon 12-26-2023 12 Lead EKG Normal [facility] BNP,B-Type NATRIURETIC PEPTI Christa 12-26-2023 Natriuretic peptide B (Bld) [Mass/Vol] 1051.3 pg/mL High 0-100 [facility] Comment on above: Performed By: #### L 100.0100, L501.4020, L503.6005, L500.4050, L503.6620 ####[facility] [address] [place], [address] CBC W/Diff, Automatedon 12-08 Absolute Lymph 2.25 X10 3/uL Normal 0.83-4.51 [facility] Comment on above: Performed By: #### L 100.0100, L501.4020, L503.6005, L500.4050, L503.6620 ####[facility] [address] [place], [address] Absolute Neut 8.0 X10 3/uL High 2.0-7.7 [facility] Comment on above: Performed By: #### L 100.0100, L501.4020, L503.6005, L500.4050, L503.6620 ####[facility] [address] [place], [address] Basophils/100 WBC (Bld) 0.5 % Normal 0-1 [facility] Comment on above: Performed By: #### L 100.0100, L501.4020, L503.6005, L500.4050, L503.6620 ####[facility] [address] [place], [address] Eosinophils/100 WBC (Bld) 1.1 % Normal 0-5 [facility] Comment on above: Performed By: #### L 100.0100, L501.4020, L503.6005, L500.4050, L503.6620 ####[facility] [address] [place], [address] Erythrocyte distribution width (RBC) [Ratio] 13.4 % Normal 11.6-14.6 [facility] Comment on above: Performed By: #### L 100.0100, L501.4020, L503.6005, L500.4050, L503.6620 ####[facility] [address] [place], [address] Hematocrit (Bld) [Volume fraction] 45.6 % Normal 37-47 [facility] Comment on above: Performed By: #### L 100.0100, L501.4020, L503.6005, L500.4050, L503.6620 ####[facility] [address] [place], [address] Hemoglobin (Bld) [Mass/Vol] 14.3 g/dL Normal 12.0-15.0 [facility] Comment on above: Performed By: #### L 100.0100, L501.4020, L503.6005, L500.4050, L503.6620 ####[facility] [address] [place], [address] IG% 0.600 Normal 0.0-0.9 [facility] Comment on above: Result Comment: IG% - Immature Granulocytes (promyelocytes, myelocytes andmetamyelocytes) > 1% indicates that a LEFT SHIFT is Present. Performed By: #### L 100.0100, L501.4020, L503.6005, L500.4050, L503.6620 ####[facility] [address] [place], [address] Lymphocytes/100 WBC (Bld) 19.1 % Normal 19-41 [facility] Comment on above: Performed By: #### L 100.0100, L501.4020, L503.6005, L500.4050, L503.6620 ####[facility] [address] [place], [address] MCH (RBC) [Entitic mass] 32.2 pg High 27.0-32.0 [facility] Comment on above: Performed By: #### L 100.0100, L501.4020, L503.6005, L500.4050, L503.6620 ####[facility] [address] [place], [address] MCHC (RBC) [Mass/Vol] 31.4 g/dL Low 32-36 [facility] Comment on above: Performed By: #### L 100.0100, L501.4020, L503.6005, L500.4050, L503.6620 ####[facility] [address] [place], [address] MCV (RBC) [Entitic vol] 102.7 fL High 81-99 [facility] Comment on above: Performed By: #### L 100.0100, L501.4020, L503.6005, L500.4050, L503.6620 ####[facility] [address] [place], [address] Monocytes/100 WBC (Bld) 10.5 % High 0-10 [facility] Comment on above: Performed By: #### L 100.0100, L501.4020, L503.6005, L500.4050, L503.6620 ####[facility] [address] [place], [address] Neutrophils/100 WBC (Bld) 68.2 % Normal 47-70 [facility] Comment on above: Performed By: #### L 100.0100, L501.4020, L503.6005, L500.4050, L503.6620 ####[facility] [address] [place], [address] Nucleated RBC (Bld) [#/Vol] 0.2 10*3/uL Normal 0-5 [facility] Comment on above: Performed By: #### L 100.0100, L501.4020, L503.6005, L500.4050, L503.6620 ####[facility] [address] [place], [address] Platelet mean volume (Bld) [Entitic vol] 11.1 fL Normal 6.2-12.0 [facility] Comment on above: Performed By: #### L 100.0100, L501.4020, L503.6005, L500.4050, L503.6620 ####[facility] [address] [place], [address] Platelets (Bld) [#/Vol] 163 10*3/uL Normal 150-450 [facility] Comment on above: Performed By: #### L 100.0100, L501.4020, L503.6005, L500.4050, L503.6620 ####[facility] [address] [place], [address] RBC (Bld) [#/Vol] 4.44 10*6/uL Normal 4.2-5.4 [facility] Comment on above: Performed By: #### L 100.0100, L501.4020, L503.6005, L500.4050, L503.6620 ####[facility] [address] [place], [address] RDW SD 50.9 fl High 35.1-43.9 [facility] Comment on above: Performed By: #### L 100.0100, L501.4020, L503.6005, L500.4050, L503.6620 ####[facility] [address] [place], [address] WBC (Bld) [#/Vol] 11.8 10*3/uL High 4.4-11.0 [facility] Comment on above: Performed By: #### L 100.0100, L501.4020, L503.6005, L500.4050, L503.6620 ####[facility] [address] [place], [address] Chest PA and Lateralon 12-25 Chest PA and Lateral Normal [facility] Comprehensive Metabolic Prof ilon 12-26-2023 Albumin [Mass/Vol] 3.1 g/dL Low 3.2-5.0 [facility] Comment on above: Order Comment: 'TROP ' Serial specimen #1, #2 or #3: 1 Performed By: #### L 100.0100, L501.4020, L503.6005, L500.4050, L503.6620 ####[facility] [address] [place], [address] Albumin/Globulin [Mass ratio] 0.8 {ratio} Low 0.9-2.4 [facility] Comment on above: Order Comment: 'TROP ' Serial specimen #1, #2 or #3: 1 Performed By: #### L 100.0100, L501.4020, L503.6005, L500.4050, L503.6620 ####[facility] [address] [place], [address] ALK P 101 U/L Normal 45-117 [facility] Comment on above: Order Comment: 'TROP ' Serial specimen #1, #2 or #3: 1 Performed By: #### L 100.0100, L501.4020, L503.6005, L500.4050, L503.6620 ####[facility] [address] [place], [address] ALT [Catalytic activity/Vol] 65 U/L High 13-56 [facility] Comment on above: Order Comment: 'TROP ' Serial specimen #1, #2 or #3: 1 Performed By: #### L 100.0100, L501.4020, L503.6005, L500.4050, L503.6620 ####[facility] [address] [place], [address] AST [Catalytic activity/Vol] 69 U/L High 15-37 [facility] Comment on above: Order Comment: 'TROP ' Serial specimen #1, #2 or #3: 1 Result Comment: Mode rate Hemolysis, Result may be falsely increased. Performed By: #### L 100.0100, L501.4020, L503.6005, L500.4050, L503.6620 ####[facility] [address] [place], [address] Bilirubin [Mass/Vol] 0.30 mg/dL Normal 0.20-1.00 [facility] Comment on above: Order Comment: 'TROP ' Serial specimen #1, #2 or #3: 1 Result Comment: For patients on eltrombopag therapy, use of Dimension [place] TBIL is not recommended. Performed By: #### L 100.0100, L501.4020, L503.6005, L500.4050, L503.6620 ####[facility] [address] [place], [address] BUN/CRE 32.8 RATIO High 10-20 [facility] Comment on above: Order Comment: 'TROP ' Serial specimen #1, #2 or #3: 1 Performed By: #### L 100.0100, L501.4020, L503.6005, L500.4050, L503.6620 ####[facility] [address] [place], [address] CA,Total 8.6 mg/dL Normal 8.5-10.1 [facility] Comment on above: Order Comment: 'TROP ' Serial specimen #1, #2 or #3: 1 Performed By: #### L 100.0100, L501.4020, L503.6005, L500.4050, L503.6620 ####[facility] [address] [place], [address] Chloride [Moles/Vol] 108 mmol/L High 98-107 [facility] Comment on above: Order Comment: 'TROP ' Serial specimen #1, #2 or #3: 1 Performed By: #### L 100.0100, L501.4020, L503.6005, L500.4050, L503.6620 ####[facility] [address] [place], [address] CO2 [Moles/Vol] 30.0 mmol/L Normal 21.0-32.0 [facility] Comment on above: Order Comment: 'TROP ' Serial specimen #1, #2 or #3: 1 Performed By: #### L 100.0100, L501.4020, L503.6005, L500.4050, L503.6620 ####[facility] [address] [place], [address] Creatinine [Mass/Vol] 0.91 mg/dL Normal 0.55-1.02 [facility] Comment on above: Order Comment: 'TROP ' Serial specimen #1, #2 or #3: 1 Result Comment: The validity of the calculated GFR GFRAA in patients over70 years has not been determined. Clinical correlation isessential. Performed By: #### L 100.0100, L501.4020, L503.6005, L500.4050, L503.6620 ####[facility] [address] [place], [address] ECRCL 104.50 ml/min Normal [facility] Comment on above: Order Comment: 'TROP ' Serial specimen #1, #2 or #3: 1 Performed By: #### L 100.0100, L501.4020, L503.6005, L500.4050, L503.6620 ####[facility] [address] [place], [address] EST GFR - AA 87 mL/min Normal >60 [facility] Comment on above: Order Comment: 'TROP ' Serial specimen #1, #2 or #3: 1 Result Comment: Afri can Japanese GFR Calc Performed By: #### L 100.0100, L501.4020, L503.6005, L500.4050, L503.6620 ####[facility] [address] [place], [address] GAP 3 Low 5-15 [facility] Comment on above: Order Comment: 'TROP ' Serial specimen #1, #2 or #3: 1 Performed By: #### L 100.0100, L501.4020, L503.6005, L500.4050, L503.6620 ####[facility] [address] [place], [address] GFR/1.73 sq M.predicted among non-blacks MDRD (S/P/Bld) [Vol rate/Area] 72 mL/min/{1.73_m2} Normal >60 [facility] Comment on above: Order Comment: 'TROP ' Serial specimen #1, #2 or #3: 1 Result Comment: Non- GFR Calc Performed By: #### L 100.0100, L501.4020, L503.6005, L500.4050, L503.6620 ####[facility] [address] [place], [address] Globulin (S) [Mass/Vol] 3.7 g/dL Normal 2.2-4.2 [facility] Comment on above: Order Comment: 'TROP ' Serial specimen #1, #2 or #3: 1 Performed By: #### L 100.0100, L501.4020, L503.6005, L500.4050, L503.6620 ####[facility] [address] [place], [address] Glucose [Mass/Vol] 99 mg/dL Normal 74-106 [facility] Comment on above: Order Comment: 'TROP ' Serial specimen #1, #2 or #3: 1 Performed By: #### L 100.0100, L501.4020, L503.6005, L500.4050, L503.6620 ####[facility] [address] [place], [address] Potassium [Moles/Vol] 5.4 mmol/L High 3.5-5.1 [facility] Comment on above: Order Comment: 'TROP ' Serial specimen #1, #2 or #3: 1 Result Comment: Mode rate Hemolysis, Result may be falsely increased. Performed By: #### L 100.0100, L501.4020, L503.6005, L500.4050, L503.6620 ####[facility] [address] [place], [address] Sodium [Moles/Vol] 140 mmol/L Normal 136-145 [facility] Comment on above: Order Comment: 'TROP ' Serial specimen #1, #2 or #3: 1 Performed By: #### L 100.0100, L501.4020, L503.6005, L500.4050, L503.6620 ####[facility] [address] [place], [address] T PROT 6.8 g/dL Normal 6.4-8.2 [facility] Comment on above: Order Comment: 'TROP ' Serial specimen #1, #2 or #3: 1 Performed By: #### L 100.0100, L501.4020, L503.6005, L500.4050, L503.6620 ####[facility] [address] [place], [address] Urea nitrogen [Mass/Vol] 30 mg/dL High 7-18 [facility] Comment on above: Order Comment: 'TROP ' Serial specimen #1, #2 or #3: 1 Performed By: #### L 100.0100, L501.4020, L503.6005, L500.4050, L503.6620 ####[facility] [address] [place], [address] Emergency Department Summary on 12-26-2023 Emergency Department Summary Normal [facility] H AND P Exam - Hospitaliston 12-26-2023 H&P Exam - Hospitalist Normal [facility] L501.4020on 12-26-2023 TROPONIN-I HS 771 pg/mL Invalid Interpretation Code 3.0-54.0 [facility] Comment on above: Order Comment: 'TROP ' Serial specimen #1, #2 or #3: 1 Result Comment: Crit ical Result(s) Called at: 18:57:41 12/26/2023 by:Tiffanie Patten to [facility]. Results read back by same. Please Note: New Test Units and Gender Specific Reference Ranges. For more information see Policy Stat Procedure [place] High Sensitivity Troponin (TNIH) and attachments. Performed By: #### L 100.0100, L501.4020, L503.6005, L500.4050, L503.6620 ####[facility] [address] [place], [address] Lactic Acidon 12-26-2023 Lactate [Moles/Vol] 1.3 mmol/L Normal 0.4-1.9 [facility] Comment on above: Order Comment: Y Performed By: #### L 100.0100, L501.4020, L503.6005, L500.4050, L503.6620 ####[facility] [address] [place], [address] M100.678on 12-26-2023 M100.678 Pending SARS-CoV-2 (COVID 19) Negative INFLUENZA A Negative INFLUENZA B Negative RSV PCR Negative Normal [facility] Comment on above: Performed By: #### M 100.678 ####[facility] [address] [place], [address] Magnesiumon 12-26-2023 Magnesium [Mass/Vol] 2.0 mg/dL Normal 1.6-2.6 [facility] Comment on above: Order Comment: Comme nts: may add to ED labs Result Comment: Mode rate Hemolysis, Result may be falsely increased. Performed By: #### L 509.7000, L300.3900, L501.5200 ####[facility] [address] [place], [address] Partial Thromboplast Timeon 12-26-2023 aPTT Coag (Bld) [Time] 25.0 s Normal 24.1-36.2 [facility] Comment on above: Performed By: #### L 300.3900, L300.4310 ####[facility] [address] [place], [address] Procalcitoninon 12-26-2023 Procalcitonin 0.12 ng/mL High 0.00-0.09 [facility] Comment on above: Result Comment: A pr [...] Performed By: #### L 509.7000, L300.3900, L501.5200 ####[facility] [address] [place], [address] Prothrombin Time w/INRon INR Coag (PPP) [Relative time] 1.1 {INR} Normal [facility] Comment on above: Performed By: #### L 300.3900, L300.4310 ####[facility] [address] [place], [address] PT Coag (PPP) [Time] 14.0 s Normal 11.7-14.9 [facility] Comment on above: Performed By: #### L 300.3900, L300.4310 ####[facility] [address] [place], [address] INR Normal [facility] Comment on above: Result Comment: DUPL ICATE, SEE SPECIMEN [id number] Performed By: #### L 509.7000, L300.3900, L501.5200 ####[facility] [address] [place], [address] PROTIME Normal 11.7-14.9 [facility] Comment on above: Result Comment: DUPL ICATE, SEE SPECIMEN [id number] Performed By: #### L 509.7000, L300.3900, L501.5200 ####[facility] [address] [place], [address] Venous Blood Gason 4 Blood Gas Type SATISH Normal [facility] Comment on above: Performed By: #### L 9000.0810 ####[facility] [address] [place], [address] CO2 [Moles/Vol] 32 mmol/L Normal 23-33 [facility] Comment on above: Performed By: #### L 9000.0810 ####[facility] [address] [place], [address] FI02 2.0 Normal [facility] Comment on above: Performed By: #### L 9000.0810 ####[facility] [address] [place], [address] HCO3 (Bld) [Moles/Vol] 30 mmol/L High 22-26 [facility] Comment on above: Performed By: #### L 9000.0810 ####[facility] [address] [place], [place], [id number] O2 Delivery Dev Cannula Normal [facility] Comment on above: Performed By: #### L 9000.0810 ####[facility] [address] [place], [address] SITE Not entered Normal [facility] Comment on above: Performed By: #### L 9000.0810 ####[facility] [address] [place], [address] VBG BE 3 mmol/L Normal -1.0-3.5 [facility] Comment on above: Performed By: #### L 9000.0810 ####[facility] [address] [place], [address] VBG pCO2 68.2 mmHg High 41-51 [facility] Comment on above: Performed By: #### L 9000.0810 ####[facility] [address] [place], [address] VBG pH 7.25 Low 7.32-7.42 [facility] Comment on above: Performed By: #### L 9000.0810 ####[facility] [address] [place], [address] VBG PO2 28 mmHg Normal 25-40 [facility] Comment on above: Performed By: #### L 9000.0810 ####[facility] [address] [place], [address] VBG SO2 42 Low 50-70 [facility] Comment on above: Performed By: #### L 9000.0810 ####[facility] [address] [place], [place], [id number] [facility] SIA ABDUL ([id number]) 1980 F Date Time Provider Department 12/25/23 MARILEE THAKUR During your visit today, we recorded the following information about you: Annie Brand RN 12/25/2023 4:30 PM Addendum Enrique, nurse @ [facility] calling to let provider know patient weighed 291.1 # this morning. She says patient does not have increase in leg edema nor shortness of breath. Last weight reported was 283# on 12/17/23. Enrique states patient is currently taking Lasix 40 mg daily and Potassium 20 mEq daily. Patient was in [facility] ER on 12/21/23 with SOB. Patient was in [facility] ER again on 12/23/23 for viral gastroenteritis. Patient scheduled for ER F/U with PCP on 01/02/24. RODRÍGUEZ Wang Joy, APRN.[employer] 12/26/2023 11:41 AM Signed As previous message - she needs seen earlier then scheduled. Thank you Mika Kaplan APRN.[employer] María Avila MA 12/26/2023 12:36 PM Signed [...] 2 SPRAYS IN EACH NOSTRIL DAILY - Meniw-8-MZJ-EPA-Fish Oil 1,000 mg (120 mg-180 mg) cap [...] Mental sta (more content not included)... Normal [facility] CBC W/Diff, Automatedon 10-1 Absolute Lymph 2.11 X10 3/uL Normal 0.83-4.51 [facility] Comment on above: Performed By: #### L 500.4050, L100.0100 ####[facility] [address] [place], [place], [address] Absolute Neut 4.8 X10 3/uL Normal 2.0-7.7 [facility] Comment on above: Performed By: #### L 500.4050, L100.0100 ####[facility] [address] [place], [address] Basophils/100 WBC (Bld) 0.4 % Normal 0-1 [facility] Comment on above: Performed By: #### L 500.4050, L100.0100 ####[facility] [address] [place], [address] Eosinophils/100 WBC (Bld) 3.2 % Normal 0-5 [facility] Comment on above: Performed By: #### L 500.4050, L100.0100 ####[facility] [address] [place], [address] Erythrocyte distribution width (RBC) [Ratio] 13.4 % Normal 11.6-14.6 [facility] Comment on above: Performed By: #### L 500.4050, L100.0100 ####[facility] [address] [place], [address] Hematocrit (Bld) [Volume fraction] 45.6 % Normal 37-47 [facility] Comment on above: Performed By: #### L 500.4050, L100.0100 ####[facility] [address] [place], [address] Hemoglobin (Bld) [Mass/Vol] 13.5 g/dL Normal 12.0-15.0 [facility] Comment on above: Performed By: #### L 500.4050, L100.0100 ####[facility] [address] [place], [address] IG% 0.200 Normal 0.0-0.9 [facility] Comment on above: Result Comment: IG% - Immature Granulocytes (promyelocytes, myelocytes andmetamyelocytes) > 1% indicates that a LEFT SHIFT is Present. Performed By: #### L 500.4050, L100.0100 ####[facility] [address] [place], [address] Lymphocytes/100 WBC (Bld) 24.9 % Normal 19-41 [facility] Comment on above: Performed By: #### L 500.4050, L100.0100 ####[facility] [address] [place], [address] MCH (RBC) [Entitic mass] 30.6 pg Normal 27.0-32.0 [facility] Comment on above: Performed By: #### L 500.4050, L100.0100 ####[facility] [address] [place], [address] MCHC (RBC) [Mass/Vol] 29.6 g/dL Low 32-36 [facility] Comment on above: Performed By: #### L 500.4050, L100.0100 ####[facility] [address] [place], [address] MCV (RBC) [Entitic vol] 103.4 fL High 81-99 [facility] Comment on above: Performed By: #### L 500.4050, L100.0100 ####[facility] [address] [place], [address] Monocytes/100 WBC (Bld) 14.5 % High 0-10 [facility] Comment on above: Performed By: #### L 500.4050, L100.0100 ####[facility] [address] [place], [address] Neutrophils/100 WBC (Bld) 56.8 % Normal 47-70 [facility] Comment on above: Performed By: #### L 500.4050, L100.0100 ####[facility] [address] [place], [address] Nucleated RBC (Bld) [#/Vol] 0 10*3/uL Normal 0-5 [facility] Comment on above: Performed By: #### L 500.4050, L100.0100 ####[facility] [address] [place], [address] Platelet mean volume (Bld) [Entitic vol] 10.6 fL Normal 6.2-12.0 [facility] Comment on above: Performed By: #### L 500.4050, L100.0100 ####[facility] [address] [place], [address] Platelets (Bld) [#/Vol] 176 10*3/uL Normal 150-450 [facility] Comment on above: Performed By: #### L 500.4050, L100.0100 ####[facility] [address] [place], [address] RBC (Bld) [#/Vol] 4.41 10*6/uL Normal 4.2-5.4 [facility] Comment on above: Performed By: #### L 500.4050, L100.0100 ####[facility] [address] [place], [address] RDW SD 51.3 fl High 35.1-43.9 [facility] Comment on above: Performed By: #### L 500.4050, L100.0100 ####[facility] [address] [place], [address] WBC (Bld) [#/Vol] 8.5 10*3/uL Normal 4.4-11.0 [facility] Comment on above: Performed By: #### L 500.4050, L100.0100 ####[facility] [address] [place], [address] Comprehensive Metabolic Prof [facility] 12-23-2023 Albumin [Mass/Vol] 3.3 g/dL Normal 3.2-5.0 [facility] Comment on above: Performed By: #### L 500.4050, L100.0100 ####[facility] [address] [place], [address] Albumin/Globulin [Mass ratio] 0.8 {ratio} Low 0.9-2.4 [facility] Comment on above: Performed By: #### L 500.4050, L100.0100 ####[facility] [address] [place], [address] ALK P 98 U/L Normal 45-117 [facility] Comment on above: Performed By: #### L 500.4050, L100.0100 ####[facility] [address] [place], [address] ALT [Catalytic activity/Vol] 27 U/L Normal 13-56 [facility] Comment on above: Performed By: #### L 500.4050, L100.0100 ####[facility] [facility] [address] [place], [address] AST [Catalytic activity/Vol] 26 U/L Normal 15-37 [facility] Comment on above: Result Comment: Mode rate Hemolysis, Result may be falsely increased. Performed By: #### L 500.4050, L100.0100 ####[facility] [address] [place], [address] Bilirubin [Mass/Vol] 0.50 mg/dL Normal 0.20-1.00 [facility] Comment on above: Result Comment: For patients on eltrombopag therapy, use of Dimension [place] TBIL is not recommended. Performed By: #### L 500.4050, L100.0100 ####[facility] [address] [place], [address] BUN/CRE 33.1 RATIO High 10-20 [facility] Comment on above: Performed By: #### L 500.4050, L100.0100 ####[facility] [address] [place], [address] CA,Total 9.6 mg/dL Normal 8.5-10.1 [facility] Comment on above: Performed By: #### L 500.4050, L100.0100 ####[facility] [address] [place], [address] Chloride [Moles/Vol] 104 mmol/L Normal 98-107 [facility] Comment on above: Performed By: #### L 500.4050, L100.0100 ####[facility] [address] [place], [address] CO2 [Moles/Vol] 32.0 mmol/L Normal 21.0-32.0 [facility] Comment on above: Performed By: #### L 500.4050, L100.0100 ####[facility] [address] [place], [address] Creatinine [Mass/Vol] 0.60 mg/dL Normal 0.55-1.02 [facility] Comment on above: Result Comment: The validity of the calculated GFR GFRAA in patients over70 years has not been determined. Clinical correlation isessential. Performed By: #### L 500.4050, L100.0100 ####[facility] [address] [place], [address] ECRCL 156.70 ml/min Normal [facility] Comment on above: Performed By: #### L 500.4050, L100.0100 ####[facility] [address] [place], [address] EST GFR - AA 140 mL/min Normal >60 [facility] Comment on above: Result Comment: Afri can Japanese GFR Calc Performed By: #### L 500.4050, L100.0100 ####[facility] [address] [place], [address] GAP 2 Low 5-15 [facility] Comment on above: Performed By: #### L 500.4050, L100.0100 ####[facility] [address] [place], [address] GFR/1.73 sq M.predicted among non-blacks MDRD (S/P/Bld) [Vol rate/Area] 116 mL/min/{1.73_m2} Normal >60 [facility] Comment on above: Result Comment: Non- GFR Calc Performed By: #### L 500.4050, L100.0100 ####[facility] [address] [place], [address] Globulin (S) [Mass/Vol] 4.1 g/dL Normal 2.2-4.2 [facility] Comment on above: Performed By: #### L 500.4050, L100.0100 ####[facility] [address] [place], [address] Glucose [Mass/Vol] 88 mg/dL Normal 74-106 [facility] Comment on above: Performed By: #### L 500.4050, L100.0100 ####[facility] [address] [place], [address] Potassium [Moles/Vol] 4.6 mmol/L Normal 3.5-5.1 [facility] Comment on above: Result Comment: Mode rate Hemolysis, Result may be falsely increased. Performed By: #### L 500.4050, L100.0100 ####[facility] [address] [place], [address] Sodium [Moles/Vol] 138 mmol/L Normal 136-145 [facility] Comment on above: Performed By: #### L 500.4050, L100.0100 ####[facility] [address] [place], [address] T PROT 7.4 g/dL Normal 6.4-8.2 [facility] Comment on above: Performed By: #### L 500.4050, L100.0100 ####[facility] [address] [place], [address] Urea nitrogen [Mass/Vol] 20 mg/dL High 7-18 [facility] Comment on above: Performed By: #### L 500.4050, L100.0100 ####[facility] [address] [place], [address] Emergency Department Summary on 12-23-2023 [facility] (INTMWS) SIA ABDUL ([id number]) 1980 F Date Time Provider Department 12/22/23 MARILEE THAKUR INTMWS During your visit today, we recorded the following information about you: Annie Brand RN 12/22/2023 1:33 PM Signed Pharmacist @ [facility] calling to clarify orders for [...] Please review and advise. RODRÍGUEZ Lopez Joy, APRN.CATERERS HELPER 12/22/2023 1:41 PM Signed She is supposed to be taking both short term. Is there a way to get her in earlier then in 10 days? Thank you Mika Kaplan APRN.CATERERS HELPER María Avila MA 12/22/2023 1:49 PM Signed [...] 2 SPRAYS IN EACH NOSTRIL DAILY - Nrgdk-2-JLC-EPA-Fish Oil 1,000 mg (120 mg-180 mg) cap [...] lymphedema [I89.0] (more content not included)... Normal [facility] .Auto Diffon 12-21-2023 Basophil, Absolute 0.0 10 3/mcL Normal 0.0-0.2 [facility] Comment on above: Performed By: #### C BC, ANEU, GFR, PBNP, BMP, TROPHS, MG, MDW, ADIFF #### [address] [address] Basophils/100 WBC (Bld) 0.3 % Normal 0.0-2.5 [facility] Comment on above: Performed By: #### C BC, ANEU, GFR, PBNP, BMP, TROPHS, MG, MDW, ADIFF #### [address] [address] Eosinophil, Absolute 0.2 10 3/mcL Normal 0.0-0.7 [facility] Comment on above: Performed By: #### C BC, ANEU, GFR, PBNP, BMP, TROPHS, MG, MDW, ADIFF #### [address] [address] Eosinophils/100 WBC (Bld) 1.9 % Normal 0.0-7.0 [facility] Comment on above: Performed By: #### C BC, ANEU, GFR, PBNP, BMP, TROPHS, MG, MDW, ADIFF #### [address] [address] Lymphocyte, Absolute 2.0 10 3/mcL Normal 0.9-4.3 [facility] Comment on above: Performed By: #### C BC, ANEU, GFR, PBNP, BMP, TROPHS, MG, MDW, ADIFF #### [address] [address] Lymphocytes/100 WBC (Bld) 17.4 % Low 20.0-40.0 [facility] Comment on above: Performed By: #### C BC, ANEU, GFR, PBNP, BMP, TROPHS, MG, MDW, ADIFF #### [address] [address] Monocyte, Absolute 1.2 10 3/mcL Normal 0.1-1.4 [facility] Comment on above: Performed By: #### C BC, ANEU, GFR, PBNP, BMP, TROPHS, MG, MDW, ADIFF #### [address] [address] Monocytes/100 WBC (Bld) 10.5 % Normal 2.0-13.0 [facility] Comment on above: Performed By: #### C BC, ANEU, GFR, PBNP, BMP, TROPHS, MG, MDW, ADIFF #### [address] [address] Neutrophils/100 WBC (Bld) 69.9 % Normal 50.0-75.0 [facility] Comment on above: Performed By: #### C BC, ANEU, GFR, PBNP, BMP, TROPHS, MG, MDW, ADIFF #### [address] [address] .GFRon 12-21-2023 GFR 169 ml/min/1.73sqm Normal [facility] Comment on above: Result Comment: GFR Population [...] PBNP, BMP, TROPHS, MG, MDW, ADIFF #### [address] [address] GFR Non- 139 ml/min/1.73sqm Normal [facility] Comment on above: Result Comment: GFR Population [...] PBNP, BMP, TROPHS, MG, MDW, ADIFF #### [address] [address] .MDWon 12-21-2023 Monocyte Distribution Width 20.26 High 0.00-20.00 [facility] Comment on above: Result Comment: For adults in ED, MDW>20.0 may be associated with a higher risk of sepsis during the first 12hrs of hospital admission Performed By: #### C BC, ANEU, GFR, PBNP, BMP, TROPHS, MG, MDW, ADIFF #### [address] [address] .NEUABSon 12-21-2023 Neutrophil, Absolute 8.1 10 3/mcL Normal 2.3-8.1 [facility] Comment on above: Performed By: #### C BC, ANEU, GFR, PBNP, BMP, TROPHS, MG, MDW, ADIFF #### [address] [place], [place] [address] BMPon 12-21-2023 BUN/Creatinine Ratio 31 ratio High 7-27 [facility] Comment on above: Performed By: #### C BC, ANEU, GFR, PBNP, BMP, TROPHS, MG, MDW, ADIFF #### [address] [place], [place] [address] Calcium [Mass/Vol] 9.1 mg/dL Normal 8.4-10.2 [facility] Comment on above: Performed By: #### C BC, ANEU, GFR, PBNP, BMP, TROPHS, MG, MDW, ADIFF #### [address] [address] Chloride [Moles/Vol] 104 mmol/L Normal 98-107 [facility] Comment on above: Performed By: #### C BC, ANEU, GFR, PBNP, BMP, TROPHS, MG, MDW, ADIFF #### [address] [address] CO2 [Moles/Vol] 34 mmol/L High 22-29 [facility] Comment on above: Performed By: #### C BC, ANEU, GFR, PBNP, BMP, TROPHS, MG, MDW, ADIFF #### [address] [address] Creatinine [Mass/Vol] 0.49 mg/dL Low 0.55-1.02 [facility] Comment on above: Result Comment: Test ing performed on Siemens Dimension EXL analyzer using a modified kinetic Melanie technique. Performed By: #### C BC, ANEU, GFR, PBNP, BMP, TROPHS, MG, MDW, ADIFF #### [address] [address] Electrolyte Balance 1.0 mEq/L Low 4.0-15.0 [facility] Comment on above: Performed By: #### C BC, ANEU, GFR, PBNP, BMP, TROPHS, MG, MDW, ADIFF #### [address] [address] Glucose [Mass/Vol] 96 mg/dL Normal 70-105 [facility] Comment on above: Performed By: #### C BC, ANEU, GFR, PBNP, BMP, TROPHS, MG, MDW, ADIFF #### [address] [address] Potassium [Moles/Vol] 4.7 mmol/L Normal 3.5-5.1 [facility] Comment on above: Performed By: #### C BC, ANEU, GFR, PBNP, BMP, TROPHS, MG, MDW, ADIFF #### [address] [address] Sodium [Moles/Vol] 139 mmol/L Normal 136-145 [facility] Comment on above: Performed By: #### C BC, ANEU, GFR, PBNP, BMP, TROPHS, MG, MDW, ADIFF #### [address] [place] [address] Urea nitrogen [Mass/Vol] 15 mg/dL Normal 7-18 [facility] Comment on above: Performed By: #### C BC, ANEU, GFR, PBNP, BMP, TROPHS, MG, MDW, ADIFF #### [place] [address] CBCon 12-21-2023 Erythrocyte distribution width (RBC) [Ratio] 14.4 % Normal 11.5-15.5 [facility] Comment on above: Performed By: #### C BC, ANEU, GFR, PBNP, BMP, TROPHS, MG, MDW, ADIFF #### [address] [place] [address] Hematocrit (Bld) [Volume fraction] 39.3 % Normal 34.0-46.0 [facility] Comment on above: Performed By: #### C BC, ANEU, GFR, PBNP, BMP, TROPHS, MG, MDW, ADIFF #### [place] [address] Hgb 12.6 G/dL Normal 12.0-16.0 [facility] Comment on above: Performed By: #### C BC, ANEU, GFR, PBNP, BMP, TROPHS, MG, MDW, ADIFF #### [place] [address] MCH (RBC) [Entitic mass] 32.2 pg Normal 27.0-33.0 [facility] Comment on above: Performed By: #### C BC, ANEU, GFR, PBNP, BMP, TROPHS, MG, MDW, ADIFF #### [address] [address] MCHC 32.1 G/dL Normal 32.0-36.0 [facility] Comment on above: Performed By: #### C BC, ANEU, GFR, PBNP, BMP, TROPHS, MG, MDW, ADIFF #### [address] [address] MCV (RBC) [Entitic vol] 100.2 fL High 80.0-99.0 [facility] Comment on above: Performed By: #### C BC, ANEU, GFR, PBNP, BMP, TROPHS, MG, MDW, ADIFF #### [address] [address] Platelet 147 10 3/mcL Low 150-450 [facility] Comment on above: Performed By: #### C BC, ANEU, GFR, PBNP, BMP, TROPHS, MG, MDW, ADIFF #### [address] [address] Platelet mean volume (Bld) [Entitic vol] 8.8 fL Normal 6.6-10.5 [facility] Comment on above: Performed By: #### C BC, ANEU, GFR, PBNP, BMP, TROPHS, MG, MDW, ADIFF #### [address] [address] RBC 3.92 10 6/mcL Low 4.10-5.30 [facility] Comment on above: Performed By: #### C BC, ANEU, GFR, PBNP, BMP, TROPHS, MG, MDW, ADIFF #### [address] [address] WBC 11.6 10 3/mcL High 4.5-10.8 [facility] Comment on above: Performed By: #### C BC, ANEU, GFR, PBNP, BMP, TROPHS, MG, MDW, ADIFF #### [address] [address] LABORATORYOrdered By: SYSTEM SYSTEM on 12-21-2023 Troponin I.cardiac DL <= 0.01 ng/mL [Mass/Vol] 22 ng/L Normal 0 - 51 ng/L AO ADM SS Comment on above: Interpretive Data: H igh Sensitive Troponin I Reference Ranges: Female: 0-51 ng/L Male: 0-76 ng/L Testing performed on Truck[employer] using a homogeneous sandwich chemiluminescent immunoassay based on Casagem technology. Basophils (Bld) [#/Vol] 0.0 103/mcL Normal [...] ng/L Male: 0-76 ng/L Testing performed on Rainbow using a homogeneous sandwich chemiluminescent immunoassay based on Casagem technology. Urea nitrogen [Mass/Vol] 15 mg/dL Normal 7 - 18 mg/dL AO ADM SS Urea nitrogen/Creatinine [Mass ratio] 31 ratio High 7 - 27 ratio AO ADM SS WBC (Bld) [#/Vol] 11.6 103/mcL High 4.5 - 10.8 10^3/mcL AO Workflow SS MGon 12-21-2023 Magnesium [Mass/Vol] 1.9 mg/dL Normal 1.8-2.4 [facility] Comment on above: Performed By: #### C BC, ANEU, GFR, PBNP, BMP, TROPHS, MG, W, ADIFF #### [address] [address] PBNPon 12-21-2023 Natriuretic peptide B (Bld) [Mass/Vol] 449 pg/mL High 0-125 [facility] Comment on above: Result Comment: NT-p roBNP results of less than 300 pg/mL effectively rules out acute congestive heart failure with 99% negative predictive value. Performed By: #### C BC, ANEU, GFR, PBNP, BMP, TROPHS, MG, KYLIE, ADIFF #### [address] [address] [facility] 12-21-2023 High Sensitivity Troponin I 22 ng/L Normal 0-51 [facility] Comment on above: Result Comment: High Sensitive Troponin I Reference Ranges: Female: 0-51 ng/L Male: 0-76 ng/L Testing performed on Rainbow using a homogeneous sandwich chemiluminescent immunoassay based on Casagem technology. Performed By: #### C BC, ANEU, GFR, PBNP, BMP, TROPHS, MG, KYLIE, ADIFF #### [address] [address] High Sensitivity Troponin I 20 ng/L Normal 0-51 [facility] Comment on above: Result Comment: High Sensitive Troponin I Reference Ranges: Female: 0-51 ng/L Male: 0-76 ng/L Testing performed on [employer] EXL using a homogeneous sandwich chemiluminescent immunoassay based on Casagem technology. Performed By: #### C BC, ANEU, GFR, PBNP, BMP, TROPHS, MG, KYLIE, ADIFF #### [address] [address] XR CHEST 1 VIEWon 12-21-2023 XR CHEST [...] 12/21/2023 3:28:25 PM Ordering Provider: TABATHA PAGE [facility] [place] SIA ABDUL ([id number]) 1980 F Date Time Provider Department 12/18/23 MARILEE THAKUR [facility] During your visit today, we recorded the following information about you: Erendira Stewart LPN 12/18/2023 2:27 PM Signed Shobha from [facility] there were medications sent for pt yesterday Rah Turner, RN 12/22/2023 9:49 AM Signed [facility]- phoned to report patient was seen in [place] ER on Friday12-21-23, with SOB. ER gave patient IV lasix and sent patient home. Reports patient is having stress in intermediate with another housemate, which is causing patient anxiety, and this was part of the problem, but patient has also been having problems with edema. This nurse phoned Shobha- caregiver @ [facility] to schedule ER f/u appt, and noted in 12-17-23 encounter, Invoicing Machine Operator had ordered potassium 20 mg daily, and lasix 40 mg daily, until patient is seen. Asked Shobha how patient is doing on this dose. Shobha reports patient never received the medication, b/c it was sent to the wrong pharmacy, should have been sent to [facility]. Shobha did call pcp to report this (see message below), but never received the medication. Reports even if the medication is sent to [facility] today- they still will not receive it until Fri. Pended medications for [facility]. Please send geovanny. Shobha reports patient is doing fine today- and they are working on the problem with the housemate. Scheduled patient hosp f/u appt for 01-01-24. Mika Kaplan APRN.OBED 12/22/2023 10:58 AM Signed Prescription Resent. Thank you Mika Kaplan APRN.Teresa Foster RN 12/22/2023 11:35 AM Signed Called and left a voicemail for the [facility] to call back and ask for a [...] 2 SPRAYS IN EACH NOSTRIL DAILY - Qauuz-5-MFE-EPA-Fish Oil 1,000 mg (120 mg-180 mg) cap [...] Each once (more content not included)... [facility] LOU [facility] (INTMWS) CHANTELLSIA Grimm ([id number]) 1980 F Date Time Provider Department 12/17/23 MARILEE THAKUR INTMWS During your visit today, we recorded the following information about you: Rah Turner RN 12/17/2023 9:13 AM Addendum Clarence- [facility]- phoned with patient update: Reports [...] Please advise and phone Clarence with reply: [phone] Mika Kaplan APRN.OBED 12/17/2023 1:23 PM Signed Patient needs to be seen to evaluate why this is continuing to occur. Can increase lasix to 40mg and the potassium to 20mg both daily until seen. Thank you Mika Kaplan APRN.Lillie Adame RN 12/17/2023 2:27 PM Signed Clarence called and notified of below , Clarence voices understanding. Clarence is going to pass this along to intermediate. Clarence asking if new scripts can be sent to [facility]? 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 Normal [facility] Tal 12-12-2023 [facility] Telephone (INTMWS) SIA ABDUL ([id number]) 1980 F Date Time Provider Department 12/12/23 MARILEE THAKUR During your visit today, we recorded the following information about you: Candelaria Ball LPN 12/12/2023 8:10 AM Signed Clarence from [facility] calling patient weight this morning [...] 2 SPRAYS IN EACH NOSTRIL DAILY - Gdfjs-0-VKM-EPA-Fish Oil 1,000 mg (120 mg-180 mg) cap [...] knee, le (more content not included)... Normal [facility] 12-05-2023 [facility] Telephone (INTMWS) SIA ABDUL ([id number]) 1980 F Date Time Provider Department 12/05/23 MARILEE THAKUR INTWS During your visit today, we recorded the following information about you: Candelaria Ball LPN 12/05/2023 9:23 AM Signed Clarence from [facility] calling time for recert intermediate services. Patient intermediate was purchased by another company, nurses will [...] Assessed Reason for Visit: recert patient for intermediate service [Other] Prescriptions as of 12/08/2023 - [...] 2 SPRAYS IN EACH NOSTRIL DAILY - Fsxqf-0-DFA-EPA-Fish Oil 1,000 mg (120 mg-180 mg) cap [...] 12/14/2014 BM (more content not included)... Normal [facility] CNOVon 11-18-2023 CNOV Office Visit (INTMWS ) SIA ABDUL ([id number]) 1980 F Date Time Provider Department 11/18/23 [...] ) fluticasone (FLONASE) 50 mcg/actuation nasal spray Exknw-8-MOB-EPA-Fish Oil 1,000 mg (120 mg-180 mg) cap [...] RRR without (more content not included)... Normal [facility] Laser Set Up Operator Office Visit Reporton 11-18-2023 Laser Set Up Operator Office Visit Report Normal [facility] CNOVon 11-13-2023 CNOV Office Visit (INTMWS ) SIA ABDUL ([id number]) 1980 F Date Time Provider Department 11/13/23 [...] then usual and painful. Went immediately to [place] ER on 10/29. No US completed to [...] INSTILL 2 SPRAYS IN EACH NOSTRIL DAILY Rklfy-7-TBP-EPA-Fish Oil 1,000 mg (120 mg-180 mg) cap [...] Never Subs (more content not included)... 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 Normal [facility] LEG VEIN DVT UNL VAS LABo n 11-13-2023 LEG VEIN DVT UNL VAS LAB Non-Invasive Vascular Laboratory [facility] Lower Extremity Venous Duplex Unilateral - Left [...] small saphenous vein. Technologist: Hina Giraldo RVT [facility] Ordering physician: MIKA KAPLAN Interpreting physician: DANITZA Eden DO Final CC [facility] : [id number] See Link below for Image Normal [facility] Lower extremity veinon Non-Invasive Vascular Laboratory [facility] Lower Extremity Venous Duplex Unilateral - Left [...] small saphenous vein. Technologist: Hina Giraldo RVT [facility] Ordering physician: MIKA KAPLAN Interpreting physician: DANITZA Eden DO Final See Link below for Image [facility] CNPN Telephone (INTMWS) SIA ABDUL ([id number]) 1980 F Date Time Provider Department 11/12/23 MARILEE THAKUR INTMWS During your visit today, we recorded the following information about you: Candelaria Ball LPN 11/12/2023 9:30 AM Signed Clarence from [facility] calling 2 weeks ago ER [...] LPN 11/19/2023 8:50 AM Signed Clarence from [facility] calling back, went over notes [...] 2 SPRAYS IN EACH NOSTRIL DAILY - Jtvig-7-XBI-EPA-Fish Oil 1,000 mg (120 mg-180 mg) cap [...] 01/28/2006 1 (more content not included)... Normal [facility] Basic Metabolic Profile (BMP )on 10-30-2023 BUN/CRE 21.5 RATIO High - [facility] Comment on above: Performed By: #### L 500.2500, L100.0100 ####[facility] [address] [place], [address] CA,Total 9.3 mg/dL Normal 8.5-10.1 [facility] Comment on above: Performed By: #### L 500.2500, L100.0100 ####[facility] [address] [place], [address] Chloride [Moles/Vol] 105 mmol/L Normal 98-107 [facility] Comment on above: Performed By: #### L 500.2500, L100.0100 ####[facility] [address] [place], [address] CO2 [Moles/Vol] 24.0 mmol/L Normal 21.0-32.0 [facility] Comment on above: Performed By: #### L 500.2500, L100.0100 ####[facility] [address] [place], [address] Creatinine [Mass/Vol] 0.60 mg/dL Normal 0.55-1.02 [facility] Comment on above: Result Comment: The validity of the calculated GFR GFRAA in patients over70 years has not been determined. Clinical correlation isessential. Performed By: #### L 500.2500, L100.0100 ####[facility] [address] [place], [address] ECRCL 142.84 ml/min Normal [facility] Comment on above: Performed By: #### L 500.2500, L100.0100 ####[facility] [address] [place], [address] EST GFR - AA 140 mL/min Normal >60 [facility] Comment on above: Result Comment: Afri can Japanese GFR Calc Performed By: #### L 500.2500, L100.0100 ####[facility] [address] [place], [address] GAP 10 Normal 5-15 [facility] Comment on above: Performed By: #### L 500.2500, L100.0100 ####[facility] [address] [place], [address] GFR/1.73 sq M.predicted among non-blacks MDRD (S/P/Bld) [Vol rate/Area] 116 mL/min/{1.73_m2} Normal >60 [facility] Comment on above: Result Comment: Non- GFR Calc Performed By: #### L 500.2500, L100.0100 ####[facility] [address] [place], [address] Glucose [Mass/Vol] 80 mg/dL Normal 74-106 [facility] Comment on above: Performed By: #### L 500.2500, L100.0100 ####[facility] [address] [place], [address] Potassium [Moles/Vol] 4.5 mmol/L Normal 3.5-5.1 [facility] Comment on above: Performed By: #### L 500.2500, L100.0100 ####[facility] [address] [place], [address] Sodium [Moles/Vol] 139 mmol/L Normal 136-145 [facility] Comment on above: Performed By: #### L 500.2500, L100.0100 ####[facility] [address] [place], [address] Urea nitrogen [Mass/Vol] 13 mg/dL Normal 7-18 [facility] Comment on above: Performed By: #### L 500.2500, L100.0100 ####[facility] [address] [place], [address] CBC W/Diff, Automatedon 10-09-2023 Absolute Lymph 3.89 X10 3/uL Normal 0.83-4.51 [facility] Comment on above: Performed By: #### L 500.2500, L100.0100 ####[facility] [address] [place], [address] Absolute Neut 8.1 X10 3/uL High 2.0-7.7 [facility] Comment on above: Performed By: #### L 500.2500, L100.0100 ####[facility] [address] [place], [address] Basophils/100 WBC (Bld) 0.7 % Normal 0-1 [facility] Comment on above: Performed By: #### L 500.2500, L100.0100 ####[facility] [address] [place], [address] Eosinophils/100 WBC (Bld) 1.9 % Normal 0-5 [facility] Comment on above: Performed By: #### L 500.2500, L100.0100 ####[facility] [address] [place], [address] Erythrocyte distribution width (RBC) [Ratio] 12.8 % Normal 11.6-14.6 [facility] Comment on above: Performed By: #### L 500.2500, L100.0100 ####[facility] [address] [place], [address] Hematocrit (Bld) [Volume fraction] 45.4 % Normal 37-47 [facility] Comment on above: Performed By: #### L 500.2500, L100.0100 ####[facility] [address] [place], [address] Hemoglobin (Bld) [Mass/Vol] 14.1 g/dL Normal 12.0-15.0 [facility] Comment on above: Performed By: #### L 500.2500, L100.0100 ####[facility] [address] [place], [address] IG% 0.300 Normal 0.0-0.9 [facility] Comment on above: Result Comment: IG% - Immature Granulocytes (promyelocytes, myelocytes andmetamyelocytes) > 1% indicates that a LEFT SHIFT is Present. Performed By: #### L 500.2500, L100.0100 ####[facility] [address] [place], [address] Lymphocytes/100 WBC (Bld) 28.9 % Normal 19-41 [facility] Comment on above: Performed By: #### L 500.2500, L100.0100 ####[facility] [address] [place], [address] MCH (RBC) [Entitic mass] 31.2 pg Normal 27.0-32.0 [facility] Comment on above: Performed By: #### L 500.2500, L100.0100 ####[facility] [address] [place], [address] MCHC (RBC) [Mass/Vol] 31.1 g/dL Low 32-36 [facility] Comment on above: Performed By: #### L 500.2500, L100.0100 ####[facility] [address] [place], [address] MCV (RBC) [Entitic vol] 100.4 fL High 81-99 [facility] Comment on above: Performed By: #### L 500.2500, L100.0100 ####[facility] [address], [address] Monocytes/100 WBC (Bld) 8.0 % Normal 0-10 [facility] Comment on above: Performed By: #### L 500.2500, L100.0100 ####[facility] [address] [place], [address] Neutrophils/100 WBC (Bld) 60.2 % Normal 47-70 [facility] Comment on above: Performed By: #### L 500.2500, L100.0100 ####[facility] [address] [place], [address] Nucleated RBC (Bld) [#/Vol] 0 10*3/uL Normal 0-5 [facility] Comment on above: Performed By: #### L 500.2500, L100.0100 ####[facility] [address] [place], [address] Platelet mean volume (Bld) [Entitic vol] 10.8 fL Normal 6.2-12.0 [facility] Comment on above: Performed By: #### L 500.2500, L100.0100 ####[facility] [address] [place], [address] Platelets (Bld) [#/Vol] 155 10*3/uL Normal 150-450 [facility] Comment on above: Performed By: #### L 500.2500, L100.0100 ####[facility] [address] [place], [address] RBC (Bld) [#/Vol] 4.52 10*6/uL Normal 4.2-5.4 [facility] Comment on above: Performed By: #### L 500.2500, L100.0100 ####[facility] [address] [place], [address] RDW SD 47.6 fl High 35.1-43.9 [facility] Comment on above: Performed By: #### L 500.2500, L100.0100 ####[facility] [address] [place], [address] WBC (Bld) [#/Vol] 13.5 10*3/uL High 4.4-11.0 [facility] Comment on above: Performed By: #### L 500.2500, L100.0100 ####[facility] [address] [place], [address] Emergency Department Summary on 10-30-2023 Emergency Department Summary Normal [facility] Pelvic w/ Transvaginalon Pelvic w/ Transvaginal Normal [facility] CNPNon 10-09-2023 CNPN Telephone (INTMWS) SIA ABDUL ([id number]) 1980 F Date Time Provider Department 10/09/23 MARILEE THAKUR INTMWS During your visit today, we recorded the following information about you: Pepper Walsh RN 10/09/2023 2:35 PM Signed Crystal with [facility] calling to update PCP that [...] Date Reviewed: 03/19/2023 Reviewed by: Latesha Garibay APRN.CATERERS HELPER - Fully Assessed Reason for Visit: Patient Update [1234] Prescriptions as of 10/10/2023 - multivitamin-ferrous fumarate-folic acid (CERTAVITE-ANTIOXIDANT ) Take 1 tablet by mouth once daily. - fluticasone (FLONASE) 50 mcg/actuation nasal spray INSTILL 2 SPRAYS IN EACH NOSTRIL DAILY - Vhxce-9-UKY-EPA-Fish Oil 1,000 mg (120 mg-180 mg) cap [...] hypogonadism (H (more content not included)... Normal [facility] CNPN Telephone (INTMWS) SIA ABDUL ([id number]) 1980 F Date Time Provider Department 10/09/23 MARILEE THAKUR INTILANA During your visit today, we recorded the following information about you: Candelaria Ball LPN 10/09/2023 1:34 PM Signed Clarence from [facility] calling to recert orders for [...] Date Reviewed: 03/19/2023 Reviewed by: Latesha Garibay APRN.CATERERS HELPER - Fully Assessed Reason for Visit: recert orders [Other] Prescriptions as of 10/10/2023 - multivitamin-ferrous fumarate-folic acid (CERTAVITE-ANTIOXIDANT ) Take 1 tablet by mouth once daily. - fluticasone (FLONASE) 50 mcg/actuation nasal spray INSTILL 2 SPRAYS IN EACH NOSTRIL DAILY - Sttyb-5-OMM-EPA-Fish Oil 1,000 mg (120 mg-180 mg) cap [...] right lowe (more content not included)... Normal [facility] Laser Set Up Operator Office Visit Reporton 09-17-2023 Laser Set Up Operator Office Visit Report Normal [facility] CNPNon 08-07-2023 CNPN Telephone (INTMWS) SIA ABDUL ([id number]) 1980 F Date Time Provider Department 08/07/23 MARILEE THAKUR INTMWS During your visit today, we recorded the following information about you: Lillie Marshall RN 08/07/2023 10:44 AM Signed Clarence from [facility] calls to see if provider will continue to follow orders for intermediate? RODRÍGUEZ Carnes Terri, APRN.ACCOUNTING CLERKS SUPERVISOR 08/07/2023 12:45 PM Signed Darlene Patricia OCCA 08/07/2023 12:57 PM Signed Clarence informed of below. ANUPAMA Lira Allergies As of Date: 08/07/2023 Noted Allergy Reaction BEE STING 02/28/2023 10 - Anaphylaxis DILANTIN (PHENYTOIN SODIUM EXTEND*01/28/2006 Date Reviewed: 03/19/2023 Reviewed by: Latesha Garibay APRN.CATERERS HELPER - Fully Assessed Prescriptions as of 08/07/2023 [...] 2 SPRAYS IN EACH NOSTRIL DAILY - Lqerj-8-LQD-EPA-Fish Oil 1,000 mg (120 mg-180 mg) cap [...] L97.909] 01/16/2016 (more content not included)... 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 A review on management of adults with PWS has been published recently (PMID: 50250247). When systematically screened for common conditions, some [...] encouraged participation in sports activities at her intermediate. - Management of HTN per PCP. 2. At risk for endocrinopathies: Adults with PWS are at increased risk for diabetes, hypercholesterolemia, growth hormone deficiency, hypogonadism, and rarely, adrenal insufficiency. 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 Plan: - Annual TSH, lipid profile, HbA1C through PCP - See Desk Top Publisher for OCP 3. Bone health Adults with [...] Chief Complaint Follow up Accompanied by director of home care hospice. History of Present Illness PWS CLINIC Deepali is a 42 year old female who has presented to the PWS multidisciplinary clinic at [facility]. She is accompanied by her mixing house operator, Anali. History was obtained by the patient, [...] the past. PCP: Dr. Marilee Thakur at [facility], fax number [phone], is currently seeing an SESSIONS CLERK named Older at this office Interval History: [...] Friday, where she works out (e.g., machines, [employer]) half a day. She just received a [...] records - they may be accessible on [employer], and will hopefully be more available on [employer]. - Seeing Gynecology for OCP (for bone health). Dx of uterine prolapse. - Asthma, using inhalers twice a day. She denies dys (more content not included)... Normal [facility]-[place] 12-05-2022 Nutrition-Adult History of Present Illness Food/Nutrition related history: [facility] Nutrition Assessment in PWS Clinic Date of [...] AND INTAKE: Pt and caregiver (Anali - [employer] Fat Cook [employer]) present in out-patient PWS clinic for a scheduled f/u clinic visit. 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 The Nursing Home sends packed meals home with her. Food [...] report to dietitian - Send copies of Nursing Home Food Menus and pts actual % of [...] - Nu (more content not included)... Normal [facility] Tobacco Screening.on 023 Adult depression screening assessment No [facility] [address] Work Phone: Tobacco use status [facility] b) No XK-Ksowrwyw[address] Work Phone: Tobacco Screening.on 022 Adult depression screening assessment No [facility] 1100 DO Work Phone: Fall risk assessment a) No falls within the last year [facility] DO Work Phone: Tobacco use status [facility] b) No [facility] 1100 DO Work Phone: US Hip - lefton 05-31-2021 IMPRESSION: Unremarkable ultrasound of the anterior left hip Body Finisher: NADIA Transcribe Date/Time: May 31 2021 1:54P Dictated by : PAM MUNIZ MD This examination was interpreted and the report reviewed and electronically signed by: GUS SAGE MD on May 31 2021 2:05PM [facility] DIVISION OF RADIOLOGY * * *Final Report* * * DATE OF EXAM: May 31 2021 1:48PM [facility] 1147 - HIP LT / PROCEDURE [...] Not well seen. DIVISION OF RADIOLOGY [facility] * * *Final Report* * * DATE OF EXAM: May 31 2021 1:48PM [facility] 1147 [facility] HIP LT / PROCEDURE REASON: Left groin [...] Unremarkable ultrasound of the anterior left hip Body Finisher: NADIA Transcribe Date/Time: May 31 2021 1:54P Dictated by : PAM MUNIZ MD This examination was interpreted and the report reviewed and electronically signed by: GUS SAGE MD on May 31 2021 2:05PM EST [facility] Radiology Study observation (narrative) [facility] US Hip - leftOrdered By: Ccf Provider on 05-31-2021 [facility] Tobacco Screening.on 022 Fall risk assessment a) No falls within the last year [facility]-Abwndqvp[address] Work Phone: Tobacco use status [facility] b) No NB-Avygqnuy-Z [address] Work Phone: CNOVon 02-15-2021 CNOV Office Visit (AGMIL) SIA ABDUL ([id number]) 1980 F Date Time Provider Department 02/15/21 [...] needed basis. This note was generated with [employer] dictation software. It may contain incorrect words, spelling, and punctuation and that were not noted in review of the chart prior to signing. I spent 15 minutes in the visit, with more than 50% of the total obxw-oq-qyuf time of the visit in counseling / coordination of care. Recommendations: #1 continue lymphedema pumping #2 continue lymphedema wraps #3 check with primary care physician and if no contraindications begin enteric-coated baby aspirin on a daily basis. Referring Provider: MARILEE THAKUR [[id number]] Allergies As of Date: 02/15/2021 Noted Allergy [...] extremity [I89.0] BMI 50.0-59.9, adult ([facility]) [Z68.43] Prescriptions as of 02/15/2021 - furosemide (LASIX) 20 mg tablet TAKE ONE TABLET BY MOUTH EVERY OTHER DAY - clotrimazole (LOTRIMIN, CLOTRIM) 1 % cream APPLY TOPICALLY TO AFFECTED AREA(S) ON BILATERAL GROIN TWICE DAILY - ammonium lactate (LAC-HYDRIN) 12 % cream APPLY TOPICALLY TO AFFECTED AREA(S) ON LEGS AT BEDTIME - dnjpbdi-yfcldeozu-kfzf min D3 (OYSTER SHELL CALCIUM-VITAMIN D) 500 [...] DAILY *SHAKE GENTLY BEFORE USING* - Fish Oil-[place]-3 Fatty Acids (FISH OIL) 340-1,000 mg cap [...] Dx: Recu (more content not included)... Normal [facility] CNOVon 01-18-2021 OV Office Visit (AGMIL) SIA ABDUL ([id number]) 1980 F Date Time Provider Department 01/18/21 [...] a month. This note was generated with Mind[employer] software. It may contain incorrect words, spelling, and punctuation and that were not noted in review of the chart prior to signing. I spent 15 minutes in the visit, with more than 50% of the total tvov-on-aphv time of the visit in counseling / coordination of care. Referring Provider: MARILEE THAKUR [[id number]] Allergies As of Date: 01/18/2021 Noted Allergy [...] Order(s): LEG VEIN DVT [facility] [[id number]] Order #: [id number] FUTURE Prescriptions as of 01/29/2021 - clotrimazole (LOTRIMIN, CLOTRIM) 1 % cream APPLY TOPICALLY TO AFFECTED AREA(S) ON BILATERAL GROIN TWICE DAILY - ammonium lactate (LAC-HYDRIN) 12 % cream APPLY TOPICALLY TO AFFECTED AREA(S) ON LEGS AT BEDTIME - kiljocv-xybnuyhif-szpi min D3 (OYSTER SHELL CALCIUM-VITAMIN D) 500 [...] DAILY *SHAKE GENTLY BEFORE USING* - Fish Oil-[place]-3 Fatty Acids (FISH OIL) 340-1,000 mg cap [...] by mout (more content not included)... Normal [facility] Vital Signs Date Time Vital Sign Value Performing Clinician Facility 05-30-2024 12:19-0400 Blood Pressure Cuff Size NOEMI WEST MD [facility] 05-30-2024 12:19-0400 Blood Pressure Location NOEMI WEST MD [facility] 05-30-2024 12:19-0400 Blood Pressure Method NOEMI WEST MD [facility] 05-30-2024 12:19-0400 Body temperature 97.7 [degF] NOEMI WEST MD [facility] 05-30-2024 12:19-0400 Diastolic Blood Pressure Non-Invasive 59 mm[Hg] NOEMI WEST MD [facility] 05-30-2024 12:19-0400 Heart rate 65 /min NOEMI WEST MD [facility] 05-30-2024 12:19-0400 Reason For Taking VItal Signs NOEMI WEST MD [facility] 05-30-2024 12:19-0400 Respiratory rate 18 /min NOEMI WEST MD [facility] 05-30-2024 12:19-0400 Systolic Blood Pressure Non-Invasive 141 mm[Hg] NOEMI WEST MD [facility] 05-30-2024 09:10-0400 Body temperature 97.7 [degF] NOEMI WEST MD [facility] 05-30-2024 09:10-0400 Diastolic Blood Pressure Non-Invasive 60 mm[Hg] NOEMI WEST MD [facility] 05-30-2024 09:10-0400 Heart rate 66 /min NOEMI WEST MD [facility] 05-30-2024 09:10-0400 Reason For Taking VItal Signs NOEMI WEST MD [facility] 05-30-2024 09:10-0400 Respiratory rate 18 /min NOEMI WEST MD [facility] 05-30-2024 09:10-0400 Systolic Blood Pressure Non-Invasive 126 mm[Hg] NOEMI WEST MD [facility] 05-30-2024 03:52-0400 SaO2% (BldA) [Mass fraction] 92.0 % NOEMI WEST MD [facility] 05-30-2024 00:39-0400 Heart rate 62 /min NOEMI WEST MD [facility] 05-30-2024 00:27-0400 Blood Pressure Cuff Size NOEMI WEST MD [facility] 05-30-2024 00:27-0400 Blood Pressure Location NOEMI WEST MD [facility] 05-30-2024 00:27-0400 Blood Pressure Method NOEMI WEST MD [facility] 05-30-2024 00:27-0400 Body temperature 97.52 [degF] NOEMI WEST MD [facility] 05-30-2024 00:27-0400 Diastolic Blood Pressure Non-Invasive 74 mm[Hg] NOEMI WEST MD [facility] 05-30-2024 00:27-0400 Heart rate 66 /min NOEMI WEST MD [facility] 05-30-2024 00:27-0400 Reason For Taking VItal Signs NOEMI WEST MD [facility] 05-30-2024 00:27-0400 Respiratory rate 16 /min NOEMI WEST MD [facility] 05-30-2024 00:27-0400 Systolic Blood Pressure Non-Invasive 121 mm[Hg] NOEMI WEST MD [facility] 05-29-2024 20:32-0400 Blood Pressure Cuff Size NOEMI WEST MD [facility] 05-29-2024 20:32-0400 Blood Pressure Location NOEMI WEST MD [facility] 05-29-2024 20:32-0400 Blood Pressure Method NOEMI WEST MD [facility] 05-29-2024 02:57-0400 Heart rate 68 /min NOEMI WEST MD [facility] 05-28-2024 03:10-0400 Body temperature 98.06 [degF] NOEMI WEST MD [facility] 05-28-2024 03:10-0400 Heart rate 65 /min NOEMI WEST MD [facility] 05-28-2024 03:04-0400 SaO2% (BldA) [Mass fraction] 93.4 % NOEMI WEST MD [facility] 05-27-2024 19:22-0400 Body temperature 98.6 [degF] NOEMI WEST MD [facility] 05-27-2024 19:22-0400 Heart rate 71 /min NOEMI WEST MD [facility] 05-27-2024 16:20-0400 Heart rate 67 /min NOEMI WEST MD [facility] 05-27-2024 11:52-0400 Body temperature 97.88 [degF] NOEMI WEST MD [facility] 05-26-2024 10:09-0400 SaO2% (BldA) [Mass fraction] 98.8 % NOEMI WEST MD [facility] 05-26-2024 07:30-0400 Body weight 138.6 kg NOEMI WEST MD [facility] 05-25-2024 11:32-0400 Heart rate 66 /min NOMEI WEST MD [facility] 05-25-2024 08:16-0400 Body weight 140.2 kg NOEMI WEST MD [facility] 05-24-2024 16:26-0400 SaO2% (BldA) [Mass fraction] 91.8 % NOEMI WEST MD [facility] 05-23-2024 16:26-0400 Mean blood pressure 76 mm[Hg] NOEMI WEST MD [facility] 05-22-2024 19:29-0400 Mean blood pressure 85 mm[Hg] NOEMI WEST MD [facility] 05-22-2024 06:30-0400 Mean blood pressure 74 mm[Hg] NOEMI WEST MD [facility] 05-18-2024 04:43-0400 Mean blood pressure 48 mm[Hg] NOEMI WEST MD [facility] 05-18-2024 04:42-0400 Mean blood pressure 90 mm[Hg] NOEMI WEST MD [facility] 05-18-2024 04:39-0400 SaO2% (BldA) [Mass fraction] 95.6 % NOEMI WEST MD [facility] 05-18-2024 03:57-0400 Diastolic blood pressure 73 mm[Hg] NOEMI WEST MD [facility] 05-18-2024 03:57-0400 Mean blood pressure 91 mm[Hg] NOEMI WEST MD [facility] 05-18-2024 03:57-0400 Systolic blood pressure 111 mm[Hg] NOEMI WEST MD [facility] 05-18-2024 02:06-0400 SaO2% (BldA) [Mass fraction] 99.4 % NOEMI WEST MD [facility] 05-13-2024 01:56-0500 Body height 149 cm NOEMI WEST MD [facility] 05-13-2024 01:56-0500 Body weight 136.1 kg NOEMI WEST MD [facility] 05-13-2024 01:56-0500 Body weight 61.3 kg/m2 NOEMI WEST MD [facility] 05-08-2024 12:14-0500 Diastolic Blood Pressure Non-Invasive 82 mm[Hg] JAMILA DARDEN MD [facility] 05-08-2024 12:14-0500 Heart rate 71 /min JAMILA DARDEN MD [facility] 05-08-2024 12:14-0500 Reason For Taking VItal Signs JAMILA DARDEN MD [facility] 05-08-2024 12:14-0500 Respiratory rate 18 /min JAMILA DARDEN MD [facility] 05-08-2024 12:14-0500 Systolic Blood Pressure Non-Invasive 130 mm[Hg] JAMILA DARDEN MD [facility] 05-08-2024 12:03-0500 Diastolic Blood Pressure Non-Invasive 76 mm[Hg] JAMILA DARDEN MD [facility] 05-08-2024 12:03-0500 Respiratory rate 18 /min JAMILA DARDEN MD [facility] 05-08-2024 12:03-0500 Systolic Blood Pressure Non-Invasive 130 mm[Hg] JAMILA DARDEN MD [facility] 05-08-2024 11:00-0500 Blood Pressure Location JAMILA DARDEN MD [facility] 05-08-2024 11:00-0500 Body temperature 97.88 [degF] JAMILA DARDEN MD [facility] 05-08-2024 11:00-0500 Diastolic Blood Pressure Non-Invasive 83 mm[Hg] JAMILA DARDEN MD [facility] 05-08-2024 11:00-0500 Heart rate 75 /min JAMILA DARDEN MD [facility] 05-08-2024 11:00-0500 Respiratory rate 20 /min JAMILA DARDEN MD [facility] 05-08-2024 11:00-0500 Systolic Blood Pressure Non-Invasive 143 mm[Hg] JAMILA DARDEN MD [facility] 05-04-2024 12:01-0500 Diastolic blood pressure 79 mm[Hg] Isi Goodman MD Work Phone: [facility] 05-04-2024 12:01-0500 Heart rate 63 /min Isi Goodman MD Work Phone: [facility] 05-04-2024 12:01-0500 SaO2% (BldA) [Mass fraction] 99 % Isi Goodman MD Work Phone: [facility] 05-04-2024 12:01-0500 Systolic blood pressure 130 mm[Hg] Isi Goodman MD Work Phone: [facility] 05-03-2024 15:22-0500 Body height 149.9 cm Keely Ordonez MD Work Phone: [facility] 05-03-2024 15:22-0500 Body mass index (BMI) [Ratio] 57.56 kg/m2 Keely Ordonez MD Work Phone: [facility] 05-03-2024 15:22-0500 Body weight 129.28 kg Keely Ordonez MD Work Phone: [facility] 05-03-2024 15:22-0500 Diastolic blood pressure 78 mm[Hg] Keely Ordonez MD Work Phone: [facility] 05-03-2024 15:22-0500 Heart rate 62 /min Keely Ordonez MD Work Phone: [facility] 05-03-2024 15:22-0500 Systolic blood pressure 112 mm[Hg] Keely Ordonez MD Work Phone: [facility] 04-06-2024 09:51-0500 Diastolic blood pressure 83 mm[Hg] Hilda Jeong DO Work Phone: [facility] 04-06-2024 09:51-0500 Heart rate 76 /min Hilda Jeong DO Work Phone: [facility] 04-06-2024 09:51-0500 SaO2% (BldA) [Mass fraction] 99 % Hilda Jeong DO Work Phone: [facility] Comment on above: 2L 04-06-2024 09:51-0500 Systolic blood pressure 121 mm[Hg] Hilda Jeong DO Work Phone: [facility] 04-01-2024 10:56-0500 Body mass index (BMI) [Ratio] 61.89 kg/m2 Mika Older CHURCH HISTORY PROFESSOR.CATERERS HELPER Work Phone: [facility] 04-01-2024 10:56-0500 Body weight 127.46 kg Mika Older CHURCH HISTORY PROFESSOR.CATERERS HELPER Work Phone: [facility] 04-01-2024 10:56-0500 Diastolic blood pressure 80 mm[Hg] Mika Older CHURCH HISTORY PROFESSOR.CATERERS HELPER Work Phone: [facility] 04-01-2024 10:56-0500 Heart rate 72 /min Mika Older CHURCH HISTORY PROFESSOR.CATERERS HELPER Work Phone: [facility] 04-01-2024 10:56-0500 Respiratory rate 16 /min Mika Older CHUR[employer] HISTORY PROFESSOR.CATERERS HELPER Work Phone: [facility] 04-01-2024 10:56-0500 SaO2% (BldA) [Mass fraction] 93 % Mika Older [employer]UR[employer] HISTORY PROFESSOR.CATERERS HELPER Work Phone: [facility] 04-01-2024 10:56-0500 Systolic blood pressure 122 mm[Hg] Mika Older CHURCH HISTORY PROFESSOR.CATERERS HELPER Work Phone: [facility] 03-23-2024 10:33-0500 Body mass index (BMI) [Ratio] 63.22 kg/m2 Isi Goodman MD Work Phone: [facility] 03-23-2024 10:33-0500 Body weight 129.28 kg Isi Goodman MD Work Phone: [facility] 03-23-2024 10:33-0500 Diastolic blood pressure 73 mm[Hg] Isi Goodman MD Work Phone: [facility] 03-23-2024 10:33-0500 Heart rate 67 /min Isi Goodman MD Work Phone: [facility] 03-23-2024 10:33-0500 SaO2% (BldA) [Mass fraction] 98 % Isi Goodman MD Work Phone: [facility] 03-23-2024 10:33-0500 Systolic blood pressure 123 mm[Hg] Isi Goodman MD Work Phone: [facility] 03-12-2024 10:14-0500 Body mass index (BMI) [Ratio] 66.37 kg/m2 Rajesh Corona MD Work Phone: [facility] 03-12-2024 10:14-0500 Body weight 136.7 kg Rajesh Corona MD Work Phone: [facility] 03-12-2024 10:14-0500 Diastolic blood pressure 85 mm[Hg] Rajesh Corona MD Work Phone: [facility] 03-12-2024 10:14-0500 Heart rate 74 /min Rajesh Corona MD Work Phone: [facility] 03-12-2024 10:14-0500 SaO2% (BldA) [Mass fraction] 98 % Rajesh Corona MD Work Phone: [facility] 03-12-2024 10:14-0500 Systolic blood pressure 116 mm[Hg] Rajesh Corona MD Work Phone: [facility] 02-27-2024 05:29-0500 Diastolic Blood Pressure Non-Invasive 89 mm[Hg] JAMILA DARDEN MD [facility] 02-27-2024 05:29-0500 Heart rate 65 /min JAMILA DARDEN MD [facility] 02-27-2024 05:29-0500 Respiratory rate 21 /min JAMILA DARDEN MD [facility] 02-27-2024 05:29-0500 Systolic Blood Pressure Non-Invasive 127 mm[Hg] JAMILA DARDEN MD [facility] 02-27-2024 03:55-0500 Diastolic Blood Pressure Non-Invasive 61 mm[Hg] JAMILA DARDEN MD [facility] 02-27-2024 03:55-0500 Heart rate 74 /min JAMILA DARDEN MD [facility] 02-27-2024 03:55-0500 Respiratory rate 23 /min JAMILA DARDEN MD [facility] 02-27-2024 03:55-0500 Systolic Blood Pressure Non-Invasive 109 mm[Hg] JAMILA DARDEN MD [facility] 02-27-2024 03:36-0500 Heart rate 75 /min JAMILA DARDEN MD [facility] 02-27-2024 03:36-0500 Respiratory rate 24 /min JAMILA DARDEN MD [facility] 02-27-2024 03:35-0500 Diastolic Blood Pressure Non-Invasive 75 mm[Hg] JAMILA DARDEN MD [facility] 02-27-2024 03:35-0500 Systolic Blood Pressure Non-Invasive 97 mm[Hg] JAMILA DARDEN MD [facility] 02-16-2024 15:17-0500 Body mass index (BMI) [Ratio] 63.65 kg/m2 Marilee Thakur MD Work Phone: [facility] 02-16-2024 15:17-0500 Body weight 131.09 kg Marilee Thakur MD Work Phone: [facility] 02-16-2024 15:17-0500 Diastolic blood pressure 58 mm[Hg] Marilee Thakur MD Work Phone: [facility] 02-16-2024 15:17-0500 Heart rate 57 /min Marilee Thakur MD Work Phone: [facility] 02-16-2024 15:17-0500 SaO2% (BldA) [Mass fraction] 93 % Marilee Thakur MD Work Phone: [facility] 02-16-2024 15:17-0500 Systolic blood pressure 78 mm[Hg] Marilee Thakur MD Work Phone: [facility] 02-06-2024 11:38-0500 Body mass index (BMI) [Ratio] 63.22 kg/m2 Marilee Thakur MD Work Phone: [facility] 02-06-2024 11:38-0500 Body weight 130.21 kg Marilee Thakur MD Work Phone: [facility] 02-06-2024 11:38-0500 Diastolic blood pressure 77 mm[Hg] Marilee Thakur MD Work Phone: [facility] 02-06-2024 11:38-0500 Heart rate 65 /min Marilee Thakur MD Work Phone: [facility] 02-06-2024 11:38-0500 SaO2% (BldA) [Mass fraction] 96 % Marilee Thakur MD Work Phone: [facility] 02-06-2024 11:38-0500 Systolic blood pressure 112 mm[Hg] Marilee Thakur MD Work Phone: [facility] 01-20-2024 08:45-0500 Body mass index (BMI) [Ratio] 65.21 kg/m2 Isi Goodman MD Work Phone: [facility] 01-20-2024 08:45-0500 Body weight 133.36 kg Isi Goodman MD Work Phone: [facility] 01-20-2024 08:45-0500 Diastolic blood pressure 74 mm[Hg] Isi Goodman MD Work Phone: [facility] 01-20-2024 08:45-0500 Heart rate 74 /min Isi Goodman MD Work Phone: [facility] 01-20-2024 08:45-0500 SaO2% (BldA) [Mass fraction] 95 % Isi Goodman MD Work Phone: [facility] 01-20-2024 08:45-0500 Systolic blood pressure 109 mm[Hg] Isi Goodman MD Work Phone: [facility] 01-12-2024 09:05-0500 Body mass index (BMI) [Ratio] 60.59 kg/m2 Marilee Thakur MD Work Phone: [facility] 01-12-2024 09:05-0500 Body weight 124.79 kg Marilee Tahkur MD Work Phone: [facility] 01-12-2024 09:05-0500 Diastolic blood pressure 70 mm[Hg] Marilee Thakur MD Work Phone: [facility] 01-12-2024 09:05-0500 Heart rate 77 /min Marilee Thakur MD Work Phone: [facility] 01-12-2024 09:05-0500 Respiratory rate 16 /min Marilee Thakur MD Work Phone: [facility] 01-12-2024 09:05-0500 SaO2% (BldA) [Mass fraction] 99 % Marilee Thakur MD Work Phone: [facility] 01-12-2024 09:05-0500 Systolic blood pressure 134 mm[Hg] Marliee Thakur MD Work Phone: [facility] 12-21-2023 17:32-0400 Diastolic Blood Pressure Non-Invasive 83 mm[Hg] TABATHA PAGE DO [facility] 12-21-2023 17:32-0400 Heart rate 66 /min TABATHAMARISSA PAGE DO [facility] 12-21-2023 17:32-0400 Respiratory rate 16 /min TABATHAMARISSA PAGE DO [facility] 12-21-2023 17:32-0400 Systolic Blood Pressure Non-Invasive 123 mm[Hg] TABATHA PAGE DO [facility] 12-21-2023 16:06-0400 Diastolic Blood Pressure Non-Invasive 86 mm[Hg] TABATHA CAMILO DO [facility] 12-21-2023 16:06-0400 Heart rate 72 /min TABATHAMARISSA PAGE DO [facility] 12-21-2023 16:06-0400 Mean blood pressure 97 mm[Hg] TABATHA PAGE DO [facility] 12-21-2023 16:06-0400 Respiratory rate 18 /min TABATHA PAGE DO [facility] 12-21-2023 16:06-0400 Systolic Blood Pressure Non-Invasive 116 mm[Hg] TABATHA CAMILO DO [facility] 12-21-2023 14:11-0400 Blood Pressure Location TABATHA PAGE DO [facility] 12-21-2023 14:11-0400 Body temperature 97.88 [degF] TABATHA PAGE DO [facility] 12-21-2023 14:11-0400 Diastolic Blood Pressure Non-Invasive 85 mm[Hg] TABATHA PAGE DO [facility] 12-21-2023 14:11-0400 Heart rate 63 /min TABATHA PAGE DO [facility] 12-21-2023 14:11-0400 Respiratory rate 16 /min TABATHA PAGE DO [facility] 12-21-2023 14:11-0400 Systolic Blood Pressure Non-Invasive 130 mm[Hg] TABATHA PAGE DO [facility] 11-18-2023 16:05-0400 Body mass index (BMI) [Ratio] 58.07 kg/m2 Marilee Thakur MD Work Phone: [facility] 11-18-2023 16:05-0400 Body weight 119.6 kg Marilee Thakur MD Work Phone: [facility] 11-18-2023 16:05-0400 Diastolic blood pressure 80 mm[Hg] Marilee Thakur MD Work Phone: [facility] Comment on above: L wrist 11-18-2023 16:05-0400 Heart rate 75 /min Marilee Thakur MD Work Phone: [facility] 11-18-2023 16:05-0400 Respiratory rate 16 /min Marilee Thakur MD Work Phone: [facility] 11-18-2023 16:05-0400 Systolic blood pressure 134 mm[Hg] Marilee Thakur MD Work Phone: [facility] Comment on above: L wrist 11-13-2023 11:09-0400 Body mass index (BMI) [Ratio] 57.05 kg/m2 Mika Kaplan APRN.CATERERS HELPER Work Phone: [facility] 11-13-2023 11:09-0400 Body temperature 98.2 [degF] Mika Kaplan [employer]UR[employer] HISTORY PROFESSOR.CATERERS HELPER Work Phone: [facility] 11-13-2023 11:09-0400 Body weight 117.5 kg Mika Older [employer] HISTORY PROFESSOR.CATERERS HELPER Work Phone: [facility] 11-13-2023 11:09-0400 Diastolic blood pressure 84 mm[Hg] Mika Older CHUR[employer] HISTORY PROFESSOR.CATERERS HELPER Work Phone: [facility] 11-13-2023 11:09-0400 Heart rate 60 /min Mika Older [employer] HISTORY PROFESSOR.CATERERS HELPER Work Phone: [facility] 11-13-2023 11:09-0400 Respiratory rate 16 /min Mika Older [employer]UR[employer] HISTORY PROFESSOR.CATERERS HELPER Work Phone: [facility] 11-13-2023 11:09-0400 SaO2% (BldA) [Mass fraction] 98 % Mika Older [employer] HISTORY PROFESSOR.CATERERS HELPER Work Phone: [facility] 11-13-2023 11:09-0400 Systolic blood pressure 136 mm[Hg] Mika Older CHUR[employer] HISTORY PROFESSOR.CATERERS HELPER Work Phone: [facility] 06-02-2023 15:04-0400 Body height 152.[address] Marilee Thakur Work Phone: [facility] 06-02-2023 15:04-0400 Body mass index (BMI) [Ratio] 48.8 kg/m2 Dr. Marilee Thakur Work Phone: [facility] 06-02-2023 15:04-0400 Body weight 113.[address] Marilee Thakur Work Phone: [facility] 12-05-2022 10:40-0400 Body height 143 cm Marilee Thakur Work Phone: YI-Coqjracj-Jsevqc [facility] [address] Work Phone: 12-05-2022 10:40-0400 Body mass index (BMI) [Ratio] 53.24 kg/m2 Marilee Thakur Work Phone: GF-Jieeasgs-Wczsea [address] Work Phone: 12-05-2022 10:40-0400 Body surface area Derived from formula 1.93 m2 Marilee Thakur Work Phone: UN-Hoiobiic-Ibfpnd de [address] Work Phone: 12-05-2022 10:40-0400 Body temperature 98 [degF] Marilee Thakur Work Phone: HQ-Jqavpjtu-Jvvxkp de [address] Work Phone: 12-05-2022 10:40-0400 Body weight 108.86 kg Marilee Thakur Work Phone: OD-Cevsmfkj-Lloapg de [address] Work Phone: 12-05-2022 10:40-0400 Heart rate 60 /min Marilee Thakur Work Phone: HG-Anowrkdk-Aoztgk de [address] Work Phone: 12-05-2022 10:40-0400 Respiratory rate 24 /min Marilee Thakur Work Phone: TU-Krxvurik-Whynpw de [address] Work Phone: 12-05-2022 10:40-0400 SaO2% (BldA) [Mass fraction] 99 % Marilee Thakur Work Phone: IP-Ldjodemz-Jfszun [address] Work Phone: 10-23-2022 14:47-0400 Body weight 111.13 kg Mika Older [employer] HISTORY PROFESSOR.CATERERS HELPER Work Phone: [facility] 10-23-2022 14:47-0400 Diastolic blood pressure 78 mm[Hg] Mika Older CH[employer] HISTORY PROFESSOR.CATERERS HELPER Work Phone: [facility] 10-23-2022 14:47-0400 Heart rate 62 /min Mika Older [employer] HISTORY PROFESSOR.CATERERS HELPER Work Phone: [facility] 10-23-2022 14:47-0400 Respiratory rate 16 /min Mika Older CHUR[employer] HISTORY PROFESSOR.CATERERS HELPER Work Phone: [facility] 10-23-2022 14:47-0400 SaO2% (BldA) [Mass fraction] 99 % Mika Older [employer] HISTORY PROFESSOR.CATERERS HELPER Work Phone: [facility] 10-23-2022 14:47-0400 Systolic blood pressure 128 mm[Hg] Mika Older CHUR[employer] HISTORY PROFESSOR.CATERERS HELPER Work Phone: [facility] 05-27-2022 14:51-0400 Body height 152.[address] Marilee Thakur Work Phone: [phone])[phone] [place] [address] 05-27-2022 14:48-0400 Body mass index (BMI) [Ratio] 49.4 kg/m2 Dr. Marilee Thakur Work Phone: 7(022)789-819251 [place] [address] 05-27-2022 14:48-0400 Body weight 114.[address] Marilee Thakur Work Phone: 4(017)[phone] [place] [address] 05-27-2022 14:48-0400 Diastolic blood pressure 72 mm[Hg] Dr. Marilee Thakur Work Phone: [facility] 05-27-2022 14:48-0400 Systolic blood pressure 114 mm[Hg] Dr. Marilee Thakur Work Phone: [facility] 05-02-2022 10:50-0500 Body height 142.2 cm Marilee Thakur MD Work Phone: [facility] 05-02-2022 10:50-0500 Body weight 111.58 kg Marilee Thakur MD Work Phone: [facility] 05-02-2022 10:50-0500 Diastolic blood pressure 68 mm[Hg] Marilee Thakur MD Work Phone: [facility] 05-02-2022 10:50-0500 Heart rate 53 /min Marilee Thakur MD Work Phone: [facility] 05-02-2022 10:50-0500 Respiratory rate 16 /min Marilee Thakur MD Work Phone: [facility] 05-02-2022 10:50-0500 SaO2% (BldA) [Mass fraction] 96 % Marilee Thakur MD Work Phone: [facility] 05-02-2022 10:50-0500 Systolic blood pressure 112 mm[Hg] Marilee Thakur MD Work Phone: [facility] 03-21-2022 12:59-0500 Body temperature 98.2 [degF] Mika Older CH[employer] HISTORY PROFESSOR.CATERERS HELPER Work Phone: [facility] 03-21-2022 12:59-0500 Body weight 112.95 kg Mika Older [employer]UR[employer] HISTORY PROFESSOR.CATERERS HELPER Work Phone: [facility] 03-21-2022 12:59-0500 Diastolic blood pressure 72 mm[Hg] Mika Older CHURCH HISTORY PROFESSOR.CATERERS HELPER Work Phone: [facility] 03-21-2022 12:59-0500 Heart rate 60 /min Mika Older CHURCH HISTORY PROFESSOR.CATERERS HELPER Work Phone: [facility] 03-21-2022 12:59-0500 Respiratory rate 16 /min Mika Older CHUR[employer] HISTORY PROFESSOR.CATERERS HELPER Work Phone: [facility] 03-21-2022 12:59-0500 SaO2% (BldA) [Mass fraction] 99 % Mika Older CHUR[employer] HISTORY PROFESSOR.CATERERS HELPER Work Phone: [facility] 03-21-2022 12:59-0500 Systolic blood pressure 118 mm[Hg] Mika Older CHUR[employer] HISTORY PROFESSOR.CATERERS HELPER Work Phone: [facility] 01-29-2022 09:48-0500 Body weight 110.68 kg Marilee Thakur MD Work Phone: [facility] 01-29-2022 09:48-0500 Diastolic blood pressure 68 mm[Hg] Marilee Thakur MD Work Phone: [facility] 01-29-2022 09:48-0500 Heart rate 66 /min Marilee Thakur MD Work Phone: [facility] 01-29-2022 09:48-0500 Respiratory rate 16 /min Marilee Thakur MD Work Phone: [facility] 11-22-2022 09:48-0500 SaO2% (BldA) [Mass fraction] 96 % Marilee Thakur MD Work Phone: [facility] 01-29-2022 09:48-0500 Systolic blood pressure 118 mm[Hg] Marilee Thakur MD Work Phone: [facility] 11-29-2021 10:39-0400 Body height 143 cm Marilee Thakur Work Phone: [facility] [address] DO Work Phone: 11-29-2021 10:39-0400 Body mass index (BMI) [Ratio] 52.42 kg/m2 Marilee Thakur Work Phone: [facility] [address] DO Work Phone: 11-29-2021 10:39-0400 Body surface area Derived from formula 1.91 m2 Marilee Thakur Work Phone: [facility] [address] DO Work Phone: 11-29-2021 10:39-0400 Body temperature 97.9 [degF] Marilee Thakur Work Phone: [facility] [address] DO Work Phone: 11-29-2021 10:39-0400 Body weight 107.19 kg Marilee Thakur Work Phone: [facility] [address] DO Work Phone: 11-29-2021 10:39-0400 Diastolic blood pressure 90 mm[Hg] Marilee Thakur Work Phone: [facility] [address] DO Work Phone: 11-29-2021 10:39-0400 Heart rate 60 /min Marilee Thakur Work Phone: [facility] [address] DO Work Phone: 11-29-2021 10:39-0400 Systolic blood pressure 141 mm[Hg] Marilee Thakur Work Phone: [facility] [address] DO Work Phone: 10-29-2021 09:56-0400 Body height 142.2 cm Marilee Thakur MD Work Phone: [facility] 10-29-2021 09:56-0400 Body temperature 99.5 [degF] Marilee Thakur MD Work Phone: [facility] 10-29-2021 09:56-0400 Body weight 109.77 kg Marilee Thakur MD Work Phone: [facility] 10-29-2021 09:56-0400 Diastolic blood pressure 62 mm[Hg] Marilee Thakur MD Work Phone: [facility] 10-29-2021 09:56-0400 Heart rate 56 /min Marilee Thakur MD Work Phone: [facility] 10-29-2021 09:56-0400 Respiratory rate 16 /min Marilee Thakur MD Work Phone: [facility] 10-29-2021 09:56-0400 SaO2% (BldA) [Mass fraction] 95 % Marilee Thakur MD Work Phone: [facility] 10-29-2021 09:56-0400 Systolic blood pressure 118 mm[Hg] Marilee Thakur MD Work Phone: [facility] 08-20-2021 15:53-0400 Body weight 110.22 kg Rae Older CHUR[employer] HISTORY PROFESSOR.CATERERS HELPER Work Phone: [facility] 08-20-2021 15:53-0400 Diastolic blood pressure 78 mm[Hg] Rae Older CHURCH HISTORY PROFESSOR.CATERERS HELPER Work Phone: [facility] 08-20-2021 15:53-0400 Heart rate 64 /min Rae Older CHURCH HISTORY PROFESSOR.CATERERS HELPER Work Phone: [facility] 08-20-2021 15:53-0400 Systolic blood pressure 132 mm[Hg] Are Older CHURCH HISTORY PROFESSOR.CATERERS HELPER Work Phone: [facility] 06-28-2021 09:56-0400 Body temperature 98.6 [degF] Marilee Thakur MD Work Phone: [facility] 06-28-2021 09:56-0400 Body weight 109.77 kg Marilee Thakur MD Work Phone: [facility] 06-28-2021 09:56-0400 Diastolic blood pressure 86 mm[Hg] Marilee Thakur MD Work Phone: [facility] 06-28-2021 09:56-0400 Heart rate 51 /min Marilee Thakur MD Work Phone: [facility] 06-28-2021 09:56-0400 Respiratory rate 18 /min Marilee Thakur MD Work Phone: [facility] 06-28-2021 09:56-0400 SaO2% (BldA) [Mass fraction] 99 % Marilee Thakur MD Work Phone: [facility] 06-28-2021 09:56-0400 Systolic blood pressure 136 mm[Hg] Marilee Thakur MD Work Phone: [facility] 05-03-2021 11:33-0500 Body mass index (BMI) [Ratio] 50.2 kg/m2 Marilee Thakur Work Phone: RS-Ydzqqazn-Yswyio de [address] Work Phone: 05-03-2021 11:33-0500 Body surface area Derived from formula 1.88 m2 Marilee Thakur Work Phone: NC-Xumxqvlp-Vugqvn de 1500 Work Phone: 05-03-2021 11:33-0500 Body temperature 97.2 [degF] Marilee Thakur Work Phone: TE-Bntuwass-Fskkmc de 1500 Work Phone: 05-03-2021 11:33-0500 Body weight 102.65 kg Marilee Thakur Work Phone: WI-Zcxefvbf-Caetcs de 1500 Work Phone: 05-03-2021 11:33-0500 Diastolic blood pressure 83 mm[Hg] Marilee Reddyta Work Phone: SZ-Pxakcqrs-Wyqhuc de 1500 Work Phone: 05-03-2021 11:33-0500 Heart rate 83 /min Marilee Reddyta Work Phone: XW-Nmcsddar-Gpjilp de 1500 Work Phone: 05-03-2021 11:33-0500 Respiratory rate 22 /min Marilee Thakur Work Phone: XT-Smqjwalx-Rbezeq de 1500 Work Phone: 05-03-2021 11:33-0500 Systolic blood pressure 136 mm[Hg] Marilee Reddyta Work Phone: XU-Iaulvkro-Uuxzbu de 1500 Work Phone: 11-05-2018 12:32-0400 BMI (Body Mass Index) 52.81 kg/m2 Mima-Luz Beckerillaci VP-Ntsyfgie-Djtjpu de Work Phone: 11-05-2018 12:32-0400 Body weight 108 kg Mima-Luz Schillaci GJ-Ttfyhlot-Hmancd de Work Phone: 11-05-2018 12:32-0400 BP Diastolic 97 mm[Hg] Mima-Luz Schillaci KZ-Humlcjwt-Bqwjlg de Work Phone: Comment on above: Location: LLE; Position: Sitting 11-05-2018 12:32-0400 BP Systolic 139 mm[Hg] Mima-Luz Schillaci VG-Hwmdaush-Kknvst de Work Phone: Comment on above: Location: LLE; Position: Sitting 11-05-2018 12:32-0400 BSA (Body Surface Area) 1.92 m2 Mima-Luz Schillaci JJ-Wcjxjhgz-Ofgics de Work Phone: 11-05-2018 12:32-0400 Height 143 cm Smita Salgado RU-Jdbobjcv-Rokyai de Work Phone: 11-05-2018 12:32-0400 Pulse (Heart Rate) 62 /min Smita Tejadajhonny PS-Wqbnsmfi-Vvaqlw de Work Phone: Encounters Encounter Date Encounter Type Care Provider Facility Start: 08-18-2024 ambulatory Tia Gudla Facility:[facility] Start: 08-09-2024 ambulatory Tia Gudla OLS Facili ty:[facility] Start: 08-03-2024 ambulatory Tia Gudla OLS Facili ty:[facility] Start: 07-26-2024 ambulatory Tia Gudla OLS Facili ty:[facility] Start: 07-12-2024 ambulatory Tia Gudla OLS Facili ty:[facility] Start: 07-06-2024 End: 07-06-2024 [facility] [place] Start: 07-06-2024 End: 07-06-2024 Patient encounter procedure Jailene Kirkland [facility] [place] Comment on above: Population Health Na vigation Outreach ([facility] ) Start: 07-05-2024 ambulatory Tia Gudla OLS Facili ty:[facility] Start: 2024 ambulatory Tia Gudla OLS Facili ty:[facility] Start: 06-21-2024 ambulatory Tia Gudla OLS Facili ty:[facility] Start: 06-18-2024 ambulatory Tia Gudla OLS Facili ty:[facility] Start: 06-11-2024 ambulatory Marilee Thakur Facility:[facility] Start: 06-03-2024 End: 06-03-2024 Telephone encounter Marilee Thakur MD Work Phone: [facility] [place] Comment on above: Home Health Recertif ication Start: 05-30-2024 End: 06-17-2024 ambulatory FRANKLYN STAPLETON MD Facility:[facility] Start: 05-26-2024 End: 05-26-2024 ambulatory Aakash Manuel RN Medical Office Administrator Management Comment on above: Initial enrollment o rene for Chronic Disease Management Start: 05-20-2024 End: 05-20-2024 Refill Marilee Thakur MD Work Phone: [facility] [place] Comment on above: Refill Request Start: 05-13-2024 End: 05-30-2024 Evaluation and management of inpatient NOEMI WEST MD [facility] Start: 05-12-2024 End: 05-13-2024 Emergency department patient visit NOEMI WEST MD Facility:[facility] Start: 05-10-2024 End: 05-10-2024 ambulatory MIKA KAPLAN Facility:[facility] Start: 05-10-2024 End: 05-10-2024 Patient encounter procedure Mika Kaplan APRN.CNP Work Phone: [facility] [place] Comment on above: Cellulitis of left l ower extremity (Primary Dx); Anxiety; 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) Start: 05-08-2024 End: 05-08-2024 Emergency department patient visit JAMILA DARDEN MD [facility] Start: 05-05-2024 End: 05-06-2024 Telephone encounter Marilee Thakur MD Work Phone: [facility] [place] Comment on above: requesting verbal or fallon Start: 05-04-2024 End: 05-04-2024 ambulatory ISI GOODMAN [facility] Start: 05-04-2024 End: 05-04-2024 Office outpatient visit 15 minutes Isi Goodman MD Work Phone: [facility] Comment on above: Chronic right-sided heart failure (Primary Dx); Right ventricular dysfunction; Prader-Willi syndrome (HHS-HCC); Bilateral lower extremity edema Start: 05-03-2024 End: 05-03-2024 Office consultation new/estab patient 80 min Keely Ordonez MD Work Phone: [facility] Comment on above: Hyperglycemia (Prima ry Dx); Prader-Willi syndrome (HHS-HCC); Hypothyroidism, unspecified type; Hyperlipidemia, unspecified hyperlipidemia type; Class 3 severe obesity with serious comorbidity and body mass index (BMI) of 50.0 to 59.9 in adult, unspecified obesity type Start: 05-03-2024 End: 05-03-2024 ambulatory [facility] Start: 04-29-2024 End: 04-30-2024 Telephone encounter Marilee Thakur MD Work Phone: [facility] [place] Comment on above: Patient Update Start: 04-29-2024 ambulatory Cinthia Torres Facility :[facility] Start: 04-28-2024 End: 05-02-2024 Evaluation and management of inpatient Marbin Lizama Facility:[facility] Start: 04-28-2024 ambulatory Marbin Lizama Fac ility:[facility] Start: 04-27-2024 End: 04-30-2024 Telephone encounter Marilee Thakur MD Work Phone: [facility] [place] Comment on above: Patient Update Start: 04-21-2024 End: 06-21-2024 Follow-up encounter Mika Kaplan APRN.CNP Work Phone: [facility] [place] Comment on above: Results Start: 04-14-2024 End: 04-14-2024 ambulatory MIKA KAPLAN Facility:[facility] Start: 04-14-2024 End: 04-14-2024 Subsequent hospital visit by physician [facility] Work Phone: Radiology Comment [...] Marilee Thakur MD Work Phone: [facility] [place] Comment on above: [facility] work Start: 04-06-2024 End: 04-09-2024 Telephone encounter Marilee Thakur MD Work Phone: [facility] [place] Comment on above: Patient Update Start: 04-06-2024 End: 04-06-2024 ambulatory HILDA JEONG Facility:[facility] Start: 04-06-2024 End: 04-06-2024 Patient encounter procedure Hilda Jeong DO Work Phone: Vascular Surgery Comment on above: Lymphedema; Prader-Willi syndrome Start: 04-02-2024 End: 04-02-2024 Telephone encounter Marilee Thakur MD Work Phone: Internal Medicine [place] Comment on above: Orders Start: 04-01-2024 End: 04-01-2024 ambulatory [facility] Facility:[facility] Start: 04-01-2024 End: 04-01-2024 Patient encounter procedure [...] Internal Medicine [place] Start: 03-23-2024 End: 03-23-2024 [facility] Start: 03-23-2024 End: 03-23-2024 Office outpatient visit 15 minutes Isi Goodman MD Work Phone: [facility] Comment on above: Chronic right-sided heart failure (Primary Dx); Dyspnea on exertion; Morbid obesity (Multi); Prader-Willi syndrome (HHS-HCC); Shortness of breath; Bilateral lower extremity edema Start: 03-23-2024 End: 03-23-2024 ambulatory ISI Russell [facility] Start: 03-16-2024 End: 03-17-2024 Telephone encounter Marilee Thakur MD Work Phone: Internal Medicine [place] Comment on above: Patient Update Start: 03-12-2024 End: 03-12-2024 Telephone encounter Marilee Thakur MD Work Phone: Internal Medicine [place] Comment on above: Patient Update Start: 03-12-2024 End: 03-12-2024 ambulatory RAJESH CORONA Facility:[facility] Start: 03-12-2024 End: 03-12-2024 Patient encounter procedure [...] Thakur MD Work Phone: Internal Medicine [facility] [place] Start: 03-09-2024 End: 03-12-2024 Telephone encounter Marilee Thakur MD Work Phone: Internal Medicine [place] Comment on above: Order Request Start: 02-28-2024 ambulatory Magnolia Cullen [facility] Start: 02-28-2024 End: 03-01-2024 Evaluation and management of inpatient Magnolia Cullen Facility:[facility] Start: 02-27-2024 End: 02-27-2024 Patient Outreach Bradley Flores RN Work Phone: Medical Office Administrator Management Comment on above: Initial phone contac t for Transitional Care Management Start: 02-27-2024 End: 02-27-2024 Emergency department patient visit JAMILA DARDEN MD [facility] Start: 02-25-2024 ambulatory [facility] Start: 02-24-2024 End: 02-24-2024 ambulatory [facility] Facility:[facility] Start: 02-24-2024 End: 02-26-2024 Evaluation and management of inpatient Magnolia Cullen Facility:[facility] Start: 02-24-2024 ambulatory Cindy Atkinson [facility] Start: 02-24-2024 End: 02-24-2024 Telephone encounter Marilee Thakur MD Work Phone: Internal Medicine [place] Comment on above: Patient Update Start: 02-23-2024 End: 02-23-2024 Telephone encounter Marilee Thakur MD Work Phone: Internal Medicine [place] Comment on above: [employer] work, verbal order Start: 02-20-2024 End: 02-20-2024 Patient Outreach Bradley Flores RN Work Phone: Medical Office Administrator Management Comment on above: Initial phone contac t for Transitional Care Management Start: 02-17-2024 ambulatory Marbin Lizama Fac ility:[facility] Start: 02-17-2024 End: 02-19-2024 Evaluation and management of inpatient Marbin Lizama Facility:[facility] Start: 02-16-2024 End: 02-16-[address] [facility] Facility:[facility] Start: 02-16-2024 End: 02-16-2024 Office outpatient visit 25 minutes Marilee Thakur MD Work Phone: Internal Medicine [place] Comment on above: Acute systolic conge stive heart failure (HCC) (Primary Dx); Lymphedema; Hypotension, unspecified hypotension type; Acute on chronic diastolic congestive heart failure (HCC); Chronic obstructive pulmonary disease, unspecified COPD type (HCC); Hypothalamic hypogonadism (HCC); Prader-Willi syndrome Start: 02-13-2024 End: 02-13-2024 ambulatory MIKA OLDER Facility:[facility] Start: 02-10-2024 End: 02-10-2024 Telephone encounter Marilee Thakur MD Work Phone: Internal Medicine [place] Comment on above: [facility] work-verbal orders Start: 02-09-2024 End: 02-09-2024 Refill Marilee Thakur MD Work Phone: Internal Medicine [place] Comment on above: Refill Request Start: 02-06-2024 End: 02-06-2024 ambulatory MARILEE THAKUR Facility:[facility] Start: 02-06-2024 End: 02-06-2024 Transitional care manage srvc 7 day discharge Marilee Thakur MD Work Phone: Internal Medicine [place] Comment on above: Right-sided congesti ve heart failure secondary to left-sided congestive heart failure (HCC) (Primary Dx); Acute on chronic diastolic congestive heart failure (HCC); Nonrheumatic mitral valve regurgitation; Pulmonary hypertension (HCC); Chronic obstructive pulmonary disease, unspecified COPD type (HCC); Hypothalamic hypogonadism (HCC); Anasarca Start: 02-04-2024 End: 02-04-2024 Patient Outreach Bradley Flores RN Work Phone: Medical Office Administrator Management Comment on above: Weekly phone contact (Recurring) for Transitional Care Management Start: 02-03-2024 End: 02-04-2024 Telephone encounter Marilee Thakur MD Work Phone: Internal Medicine [place] Comment on above: Home Health Orders Start: 02-02-2024 End: 02-02-2024 Refill Marilee Thakur MD Work Phone: Internal Medicine [place] Comment on above: Refill Request Start: 01-28-2024 End: 01-28-2024 Patient Outreach Bradley Flores RN Work Phone: Medical Office Administrator Management Comment on above: Initial phone contac t for Transitional Care Management Start: 01-27-2024 End: 01-27-2024 Subsequent hospital visit by physician Chilango Herrera [facility] Comment on above: Dyspnea on exertion; Bilateral lower extremity edema Start: 01-27-2024 End: 01-27-2024 ambulatory [facility] Start: 01-23-2024 End: 01-23-2024 Telephone encounter Mika Kaplan APRN.CNP Work Phone: Internal Medicine [place] Comment on above: Patient Update Start: 01-23-2024 End: 01-26-2024 Evaluation and management of inpatient Cinthia Torres Facility:[facility] Start: 01-22-2024 End: 01-22-2024 ambulatory Martell Garland RN Work Phone: Medical Office Administrator Management Start: 01-22-2024 End: 01-23-2024 Telephone encounter Marilee Thakur MD Work Phone: Internal Medicine [place] Comment on above: Request for referral to PT/OT Start: 01-22-2024 End: 01-22-2024 Telephone follow-up Martell Garland RN Work Phone: Medical Office Administrator Management Comment on above: Transition Of Care ( TCM [facility] Follow-up Day 20) Started Weekly phone contact (Recurring) for Transitional Care Management Start: 01-20-2024 End: 01-20-2024 ambulatory MARILEE NOLAND [facility] Start: 01-20-2024 End: 01-20-2024 [facility] Start: 01-20-2024 End: 01-20-2024 Office outpatient new 45 minutes Isi Goodman MD Work Phone: [facility] Comment on above: Acute on chronic rig [...] above: Orders Start: 01-12-2024 End: 01-12-2024 ambulatory [facility] Facility:[facility] Start: 01-12-2024 End: 01-12-2024 Transitional care manage srvc 14 day discharge Marilee Thakur MD Work Phone: Internal Medicine [place] Comment on above: Hospital discharge f ollow-up (Primary Dx); Encounter for immunization; Acute congestive heart failure, unspecified heart failure type (HCC); Pulmonary hypertension (HCC); Right ventricular dysfunction Start: 01-08-2024 End: 01-08-2024 Emergency department patient visit [facility] Start: 01-07-2024 End: 01-07-2024 Telephone encounter Marilee Thakur MD Work Phone: Internal Medicine [place] Comment on above: Patient Update; weig ht increasing Start: 01-06-2024 End: 01-08-2024 Patient Outreach Martell Garland RN Work Phone: Medical Office Administrator Management Comment on above: Transition Of Care ( TCM [facility] Discharge 01/01/25) Initial phone contact for Transitional Care Management, Started Weekly phone contact (Recurring) for Transitional Care Management Patient Update Start: 12-26-2023 End: 01-02-2024 Evaluation and management of inpatient [facility] Start: 12-26-2023 ambulatory [facility] Start: 12-25-2023 End: 12-26-2023 Telephone encounter Marilee Thakur MD Work Phone: Internal [place] Comment on above: Patient Update Start: 12-23-2023 End: 12-23-2023 Emergency department patient visit [facility] Start: 12-22-2023 End: 12-22-2023 Telephone encounter Marilee Thakur MD Work Phone: Internal Medicine [place] Comment on above: Medication Question Start: 12-21-2023 End: 12-21-2023 Emergency department patient visit TABATHA PAGE DO [facility] Start: 12-18-2023 End: 12-22-2023 Telephone encounter Marilee Thakur MD Work Phone: Family Medicine [place] Comment on above: Medication Problem Start: 12-17-2023 End: 12-17-2023 Telephone encounter Marilee Thakur MD Work Phone: Internal Medicine [place] Comment on above: Patient Update Start: 12-12-2023 End: 12-12-2023 Telephone encounter Marilee Thakur MD Work Phone: Internal Medicine [place] Comment on above: weight gain Start: 12-05-2023 End: 12-08-2023 Telephone encounter Marilee Thakur MD Work Phone: Internal Medicine [place] Comment on above: recert patient for s killed nursing service Start: 12-04-2023 End: 12-04-2023 ambulatory [facility] Start: 11-24-2023 End: 11-24-2023 Refill Marilee Thakur MD Work Phone: Internal Medicine [place] Comment on above: Refill Request Start: 11-18-2023 End: 11-18-2023 Office outpatient visit 25 minutes Marilee Thakur MD Work Phone: Internal Medicine [place] Comment on above: Lymphedema (Primary Dx) Start: 11-18-2023 End: 11-18-2023 ambulatory MARILEE THAKUR Facility:[facility] Start: 11-18-2023 End: 11-18-2023 ambulatory [facility] Facility:[facility] Start: 11-13-2023 End: 11-13-2023 Telephone encounter Mika Kaplan APRN.CATERERS HELPER Work Phone: Internal Medicine [place] Comment on above: Results Start: 11-13-2023 End: 11-13-2023 ambulatory MIKA KAPLAN Facility:[facility] Start: 11-13-2023 End: 11-13-2023 Patient encounter procedure Mika Kaplan APRN.CATERERS HELPER Work Phone: Internal Medicine [place] Comment on above: Cellulitis of left l ower extremity (Primary Dx); Pain of left lower extremity; Edema, unspecified type Start: 11-12-2023 End: 11-13-2023 Telephone encounter Marilee Thakur MD Work Phone: Internal Medicine [place] Comment on above: Patient Update Start: 10-30-2023 End: 10-31-2023 Emergency department patient visit [facility] Facility:[facility] Start: 10-25-2023 End: 10-25-2023 ambulatory [facility] Facility:[facility] Start: 10-09-2023 Telephone encounter Marilee hughes MD Work Phone: Internal Medicine [place] Comment on above: recert orders Patient Update Start: 09-19-2023 Refill Marilee Thakur M D Work Phone: Internal Medicine [place] Comment on above: Refill Request Start: 09-17-2023 End: 09-17-2023 ambulatory [facility] Facility:[facility] Start: 08-22-2023 Refill Marilee Reddyta M D Work Phone: Internal Medicine [place] Comment on above: Refill Request Start: 08-11-2023 Refill Mika MinayaCATERERS HELPER Work Phone: Internal Medicine [place] Comment on above: Refill Request Start: 08-07-2023 Telephone encounter Marilee hughes MD Work Phone: Internal Medicine [place] Start: 08-06-2023 Refill Marilee Reddyta M D Work Phone: Family [facility] Comment on above: Refill Request Start: 07-28-2023 Refill Marilee Reddyta M D Work Phone: Internal Medicine [place] Comment on above: error Start: 07-21-2023 Refill Marilee Ganta M D Work Phone: Internal Medicine [place] Comment on above: Refill Request Start: 07-07-2023 Refill Latesha NORIEGACATERERS HELPER Work Phone: Internal Medicine [place] Comment on above: Refill Request Start: 07-04-2023 End: 07-04-[address] Marilee Thakur Work Phone: [facility] Work Phone: Start: 07-04-2023 End: 07-04-[address] Marilee Thakur Work Phone: [facility]-Outpatient Breast Imaging Work Phone: Start: 06-12-2023 Refill Mika Older CHURCH HISTORY PROFESSOR .CATERERS HELPER Work Phone: Family [facility] [place] Comment on above: Refill Request Start: 06-02-2023 End: 06-02-[address] Marilee Thakur Work Phone: [facility] Work Phone: Start: 05-30-2023 Telephone encounter Mika Kaplan CHURCH HISTORY PROFESSOR.CATERERS HELPER Work Phone: Family Medicine [place] Comment on above: Orders Start: 05-26-2023 Telephone encounter Marilee hughes MD Work Phone: Internal Medicine [place] Comment on above: Insurance Authorizat ion Start: 02-04-2023 Refill Mika Older CHURCH HISTORY PROFESSOR .CATERERS HELPER Work Phone: Internal Medicine [place] Comment on above: Refill Request Start: 01-20-2023 Refill Marilee Bowling Work Phone: Internal Medicine [place] Comment on above: Refill Request Start: 12-12-2022 Refill Marilee Bowling Work Phone: Internal Medicine [place] Comment on above: Refill Request Start: 12-05-2022 Office outpatient vi sit 40 minutes Marilee Thakur Work Phone: [id number] 1500 Work Phone: Start: 10-23-2022 End: 10-23-2022 Refill Mika Older CHURCH HISTORY PROFESSOR.CATERERS HELPER Work Phone: Internal Medicine [place] Comment on above: Refill Request Lymphedema (Primary Dx); Obstructive sleep apnea syndrome; Acquired hypothyroidism; Mild intermittent asthma without complication Start: 10-10-2022 Telephone encounter Marilee hughes MD Work Phone: Internal [facility] Comment on above: Patient Question Start: 10-08-2022 ambulatory Marilee Bowling Work Phone: Internal Medicine [facility] [place] Start: 10-08-2022 Telephone encounter Marilee hughes MD Work Phone: Internal Medicine [place] Comment on above: Medication Problem Start: 08-26-2022 Refill Marilee Bowling Work Phone: Internal [facility] [place] Comment on above: Refill Request Start: 08-23-2022 Refill Mika Older CHURCH HISTORY PROFESSOR .CATERERS HELPER Work Phone: Internal [facility] Comment on above: Refill Request Start: 08-07-2022 Refill Mika Older CHURCH HISTORY PROFESSOR .CATERERS HELPER Work Phone: Internal [facility] Comment on above: Refill Request Start: 07-18-2022 Refill Marilee Bowling Work Phone: [address] [place] [address] Comment on above: Refill Request Start: 06-18-2022 End: 06-18-[address] Marilee Thakur Work Phone: [facility] Work Phone: Start: 06-18-2022 End: 06-18-[address] Marilee Thakur Work Phone: [facility]-Outpatient Breast Imaging Start: 06-06-2022 Telephone encounter Marilee hughes MD Work Phone: [facility] Comment on above: Orders (Medication A dministration Consent ) Start: 06-04-2022 Refill Mika Older CHURCH HISTORY PROFESSOR .CATERERS HELPER Work Phone: [facility] Comment on above: Refill Request Start: 05-27-2022 End: 05-27-[address] Marilee Thakur Work Phone: [facility] Start: 05-15-2022 Refill Mika Older CHURCH HISTORY PROFESSOR .CATERERS HELPER Work Phone: Internal Medicine [place] Comment on above: Refill Request Start: 05-02-2022 End: 05-02-2022 Patient encounter procedure Marilee Thakur MD Work Phone: Internal Medicine [place] Comment on above: Annual physical exam (Primary Dx); Hypothalamic hypogonadism (HCC); Prader-Willi syndrome; Obstructive sleep apnea syndrome; Mild intermittent asthma without complication; Acquired hypothyroidism; Lymphedema of left lower extremity Start: 03-21-2022 End: 03-21-2022 Patient encounter procedure Mika Kaplan APRN.CATERERS HELPER Work Phone: Internal Medicine [place] Comment on above: Bilateral chronic kn ee pain (Primary Dx); Acute cough Start: 02-05-2022 Refill Mika MinayaCATERERS HELPER Work Phone: Internal Medicine [place] Comment on above: Refill Request Start: 01-29-2022 End: 01-29-2022 Patient encounter procedure Marilee Thakur MD Work Phone: Internal Medicine [place] Comment on above: Obstructive sleep ap shelby syndrome (Primary Dx); Encounter for immunization; Mild intermittent asthma without complication; Acquired hypothyroidism; Lymphedema of right lower extremity; Lymphedema of left lower extremity; Sleep deprivation Start: 01-07-2022 Telephone encounter Marilee hughes MD Work Phone: Internal Medicine [place] Comment on above: Orders; handicap cristina card rx Start: 12-13-2021 Telephone encounter Marilee hughes MD Work Phone: Internal Medicine [place] Comment on above: Patient Question Start: 11-29-2021 Telephone encounter Marilee hughes MD Work Phone: Internal Medicine [place] Comment on above: Orders Start: 11-29-2021 Patient encounter procedure Marilee Thakur Work Phone: [facility] [address] DO Work Phone: Start: 10-29-2021 End: 10-29-2021 Patient encounter procedure Marilee Thakur MD Work Phone: Internal Medicine [place] Comment on above: Prader-Willi syndrom e (Primary Dx); Skin ulcer, limited to breakdown of skin (HCC); Pedal edema; Mild persistent asthma without complication; Obstructive sleep apnea syndrome Start: 09-20-2021 Refill Marilee Bowling Work Phone: Internal [facility] [place] Comment on above: Refill Request Start: 09-04-2021 Refill Yazan CRISTOBALN.CATERERS HELPER Work Phone: Internal Medicine [place] Comment on above: Refill Request Start: 08-29-2021 Telephone encounter Marilee hughes MD Work Phone: Internal [facility] [place] Comment on above: Home health update Start: 08-20-2021 End: 08-20-2021 Patient encounter procedure Rae Older CHURCH HISTORY PROFESSOR.CATERERS HELPER Work Phone: Internal Medicine [place] Comment on above: Skin ulcer of left t high, limited to breakdown of skin (HCC) (Primary Dx) Start: 08-14-2021 Refill Yazan CRISTOBALN.CATERERS HELPER Work Phone: Internal Medicine [place] Comment on above: Refill Request Start: 07-06-2021 Telephone encounter Marilee hughes MD Work Phone: Internal [facility] [place] Comment on above: Order request Start: 06-28-2021 Telephone encounter Marilee hughes MD Work Phone: Internal Medicine [place] Comment on above: PT Order Question Start: 06-28-2021 End: 06-28-2021 Patient encounter procedure Marilee Thakur MD Work Phone: Internal Medicine [place] Comment on above: Prader-Willi syndrom e (Primary Dx); SOB (shortness of breath); Physical therapy evaluation, initial Start: 06-28-2021 End: 06-28-2021 Patient encounter status Marilee Thakur MD Work Phone: Internal Medicine [place] Start: 06-22-2021 Telephone encounter Marilee hughes MD Work Phone: [facility] [place] Comment on above: [facility] work (verbal order needed) Start: 06-13-2021 Telephone encounter Marilee hughes MD Work Phone: Family [facility] [place] Comment on above: Forms Start: 06-06-2021 Telephone encounter Marilee hughes MD Work Phone: Internal [facility] [place] Comment on above: Results Start: 05-31-2021 End: 05-31-2021 Subsequent hospital visit by physician [facility] [address] Rad[facility] Comment on above: Left groin pain [R10 .32] Start: 05-03-2021 Nutrition therapy Marilee hughes Work Phone: WT-Ztytktlm-Sbonmien 1500 Work Phone: Start: 05-03-2021 Patient encounter procedure Marilee Thakur Work Phone: RN-Wyilrfgv-Uejgunlc 1500 Work Phone: Start: 12-02-2019 Patient encounter procedure [facility] Work Phone: Start: 08-05-2019 Patient encounter procedure [facility] Work Phone: Start: 05-06-2019 Patient encounter procedure [facility] Work Phone: Start: 11-05-2018 Patient encounter procedure Mima-Luz Schillaci PC-Dhbfyjml-Twedehsu Work Phone: Start: 05-07-2018 Patient encounter procedure Mima-Luz Schillaci QK-Iceqnvhn-Abhcvusp Work Phone: Start: 09-04-2017 Patient encounter procedure Mima-Luz Schillaci UA-Zqbaclay-Xfkyumlz Work Phone: Start: 01-01-2017 End: 01-01-2017 Ambulatory [facility] Facility:[facility] Start: 12-31-2016 Patient encounter procedure Mima-Luz Schillaci DV-Etkctlpj-Qackyesp Work Phone: Start: 12-13-2016 Patient encounter procedure Mima-Luz Schillaci WW-Mfdbadko-Widipsxg Work Phone: Start: 12-10-2016 Patient encounter procedure Mima-Luz Schillaci GN-Kdxhjfsd-Skbsfxsx Work Phone: Start: 12-05-2016 Patient encounter procedure Mima-Luz Schillaci QG-Dygonqjo-Fegnzggx Work Phone: Procedures Date Procedure Procedure Detail [...] et rgnt auto w/o microscopy Mika Eusebio CHURCH HISTORY PROFESSOR.CATERERS HELPER Work Phone: Start: 01-27-2024 Echo tthrc r-t [...] 2) Zoster Vacc skyla (1 of 2) [facility] Start: 05-22-2026 HPV TESTING HPV TESTING [facility] Start: 03-15-2027 PAP TESTING PAP TESTING [facility] Start: 05-22-2026 Screening for malign ant neoplasm of cervix [facility] Start: 05-10-2025 Annual PCP Team Edge Bander Operator brenda Disease Visit Annual PCP Team Chronic Disease Visit [facility] Start: 05-04-2025 Creatinine measurement Creatinine [facility] Start: 05-04-2025 Potassium measurement Potassium [facility] Start: 05-04-2025 Thyroid stimulating hormone measurement TSH Level [facility] Start: 04-17-2025 Lipid panel Lipid Panel [facility] Start: 04-01-2025 Annual PCP Team Edge Bander Operator brenda Disease Visit Annual PCP Team Chronic Disease Visit [facility] Start: 03-23-2025 Creatinine measurement Creatinine Le [facility] Start: 03-23-2025 Potassium measurement Potassium [facility] Start: 03-12-2025 Annual PCP Team Edge Bander Operator brenda Disease Visit Annual PCP Team Chronic Disease Visit [facility] Start: 02-15-2025 Annual PCP Team Edge Bander Operator brenda Disease Visit Annual PCP Team Chronic Disease Visit [facility] Start: 02-05-2025 Annual PCP Team Edge Bander Operator brenda Disease Visit Annual PCP Team Chronic Disease Visit [facility] Start: 01-26-2025 Echocardiography Echocardiogram [facility] Start: 01-19-[address] [facility] Start: 01-19-2025 Potassium measurement Potassium [facility] Start: 01-11-2025 Annual PCP Team Edge Bander Operator brenda Disease Visit Annual PCP Team Chronic Disease Visit [facility] Start: 01-09-2025 DTaP/Tdap/Td Vaccine s (3 - Td or Tdap) DTaP/Tdap/Td Vaccines (3 - Td or Tdap) [facility] Start: 01-09-2025 Urine microalbumin profile [facility] Start: 11-17-2024 Annual PCP Team Edge Bander Operator brenda Disease Visit Annual PCP Team Chronic Disease Visit [facility] Start: 11-12-2024 Annual PCP Team Edge Bander Operator brenda Disease Visit Annual PCP Team Chronic Disease Visit [facility] Start: 10-06-2024 End: 10-06-2024 Telemedicine consultation with patient 10/06/2024 10:20 AM EDT Telemedicine [facility] [address] [place] [address] [place] [address] [address] Department of [place] [address] [facility] Start: 10-05-2024 End: 10-05-2024 Patient encounter procedure 10/05/2024 10:30 AM EDT Office Visit Vascular Surgery [address] [place] [address] Hilda Jeong, [address] [place] [address] 6 month follow up Vascular Surgery Comment on above: 6 month follow up Start: 07-03-2024 Screening for malign ant neoplasm of breast Mammogram Screening [facility] Start: 07-01-2024 End: 07-01-2024 ambulatory 07/01/2024 9:30 AM EDT Multidisciplinary Visit [facility] [address] [place] [address] [place] [address] [facility] [place] [address] [facility] Start: 2024 End: 2024 Patient encounter procedure 2024 12:20 PM EDT Office Visit [facility] [address] [place] [address] Mika Kaplan APRN.CATERERS HELPER [address] [place] [address] 3 Month follow up [facility] Comment on above: 3 Month follow up Start: 06-22-2024 End: 06-22-2024 Patient encounter procedure 06/22/2024 11:30 AM EDT Office Visit [facility] [address] [facility] [address] [place] [phone] Isi Goodman MD [address] [place] [address] [facility] Start: 06-17-2024 End: 06-17-2024 Patient encounter procedure 06/17/2024 11:30 AM EDT Office Visit [facility] [address] [place] [phone] Isi Goodman MD [address] [place] [address] [facility] Start: 06-03-2024 End: 06-03-2024 ambulatory 06/03/2024 10:30 AM EDT Multidisciplinary Visit [facility] [address] [place] [address] [place] [address] [facility] [place] [address] [facility] Start: 05-17-2024 End: 05-17-2024 Patient encounter procedure 05/17/2024 3:40 PM EDT Office Visit [facility] [place] [address] [place] [address] Marilee Thakur MD [address] [place] [address] 1 week cellulitis follow up [facility] [place] Comment on above: 1 week cellulitis fo llow up Start: 05-13-2024 End: 05-13-2024 Patient encounter procedure 05/13/2024 10:45 AM EST Appointment Radiology [address] [place], [place] [id number] Soft tissue mass [M79.89] Radiology Comment on above: Soft tissue mass [M7 9.89] Start: 05-10-2024 End: 05-10-2024 Patient encounter procedure 05/10/2024 1:40 PM EST Office Visit [facility] [place] [address] [place] [address] Mika Kaplan APRN.CATERERS HELPER [address] [place] [address] Anxiety per Mother [facility] [place] Comment on above: Anxiety per Mother Start: 05-06-2024 End: 05-06-2024 ambulatory 05/06/2024 11:30 AM EST Multidisciplinary Visit [facility] [address] [place] [address] [place] [address] [facility] [place] [address] [facility] Start: 05-03-2024 End: 05-03-2024 Patient encounter procedure 05/03/2024 3:00 PM EST Office Visit [facility] [address] [place] [address] [place] [address] Department [place] [address] [facility] Start: 05-03-2024 End: 05-03-2025 Corticotropin [Mass/volume] in Plasma [facility] Work Phone: Comment on above: Expected: 05/03/2024 (Approximate), Expires: 05/03/2025 Start: 05-03-2024 End: 05-03-2025 Cortisol [Mass or Moles/volume] in Serum or Plasma --AM peak specimen [facility] Work Phone: Comment on above: Expected: 05/03/2024 (Approximate), Expires: 05/03/2025 Start: 05-03-2024 End: 05-03-2025 Lipid 1996 panel - Serum or Plasma Lipid Panel Lab Routine Prader-Willi syndrome ([facility]) Hyperlipidemia, unspecified hyperlipidemia type Expected: 05/03/2024 (Approximate), Expires: 05/03/2025 [facility] Service Area Work Phone: Comment on above: Expected: 05/03/2024 (Approximate), Expires: 05/03/2025 Start: 04-14-2024 End: 04-14-2024 Patient encounter procedure 04/14/2024 10:00 AM EST Appointment Radiology [address] [place] [address] 2 small spots to left side of abdomen in soft tissue Radiology Comment on above: 2 small spots to lef t side of abdomen in soft tissue Start: 04-06-2024 End: 04-06-2024 Patient encounter procedure 04/06/2024 10:00 AM EST Office Visit Vascular Surgery [address] [place] [address] Hilda Jeong, DO [address] [place] [address] 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, Prader-Willi Syndrome Vascular Surgery Comment on above: 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, Prader-Willi Syndrome Start: 04-01-2024 End: 07-01-2024 CBC panel - Blood by Automated count [facility] Work Phone: Comment on above: Expected: 04/01/2024 , Expires: 07/01/2024 Start: 04-01-2024 End: 04-01-2024 Patient encounter procedure 04/01/2024 11:00 AM EST Office Visit [facility] [place] [address] [place], [place] [id number] Mika Kaplan APRN.CATERERS HELPER [address] [place] [address] PHYSICAL [facility] [place] Comment on above: PHYSICAL Start: 03-23-2024 End: 03-23-2024 Patient encounter procedure 03/23/2024 10:30 AM EST Office Visit [facility] [address] [place] [phone] Isi Goodman MD [address] [facility] [address] [place] [address] [facility] Start: 03-22-2024 End: 03-22-2024 Patient encounter procedure 03/22/2024 1:00 PM EST Office Visit [facility] [place] [address] [facility], [place] [address] Mika Kaplan APRN.CATERERS HELPER [address] [facility] [place] [address] physical [facility] [place] Comment on above: physical Start: 03-19-2024 Annual PCP Team Edge Bander Operator brenda Disease Visit Annual PCP Team Chronic Disease Visit [facility] Start: 03-12-2024 End: 03-12-2024 Patient encounter procedure 03/12/2024 9:40 AM EST Office Visit [facility] [place] [address] [facility], [place] [address] Rajesh Corona MD [address] [place] [address] Weight gain off diuretic. See TE 03/11/24. [facility] [place] Comment on above: Weight gain off diur etic. See TE 03/11/24. Start: 03-09-2024 End: 06-08-2024 Thyrotropin [Units/volume] in Serum or Plasma THYROID STIMULATING HORMONE Lab Routine Acquired hypothyroidism Expected: 03/09/2024, Expires: 06/08/2024 [facility] Work Phone: Comment on above: Expected: 03/09/2024 , Expires: 06/08/2024 Start: 02-24-2024 End: 02-24-2024 Patient encounter procedure 02/24/2024 3:40 PM EST Office Visit [facility] [place] [address] [facility], [place] [phone] Marilee Thakur MD [address] [facility] [place] [address] [facility] D[facility] 02/18 DEJA [facility] [place] Comment on above: [facility] D[facility]C 02/18 A KI Start: 02-20-2024 End: 02-20-2024 Patient encounter procedure 02/20/2024 9:00 AM EST Office Visit [facility] [place] [address] [place], [place] [phone] Marilee Thakur MD [address] [place] [address] 3 mo follow up; BL lymphedema [facility] [place] Comment on above: 3 mo follow up; BL l ymphedema Start: 02-16-2024 End: 02-16-2024 Patient encounter procedure 02/16/2024 3:00 PM EST Office Visit [facility] [place] [address] [place], [place] [address] Marilee Thakur MD [address] [place] [address] follow up [facility] [place] Comment on above: follow up Start: 02-11-2024 End: 05-12-2024 CBC W Auto Differential panel - Blood COMPLETE BLOOD COUNT AND DIFFERENTIAL Lab Routine Acute congestive heart failure, unspecified heart failure type (HCC) Expected: 02/11/2024, Expires: 05/12/2024 [facility] Work Phone: Comment on above: Expected: 02/11/2024 , Expires: 05/12/2024 Start: 02-11-2024 End: 05-12-2024 Comprehensive metabolic 2000 panel - Serum or Plasma COMPREHENSIVE METABOLIC PANEL Lab Routine Acute congestive heart failure, unspecified heart failure type (HCC) Expected: 02/11/2024, Expires: 05/12/2024 [facility] Comment on above: Expected: 02/11/2024 , Expires: 05/12/2024 Start: 02-06-2024 End: 05-07-2024 Basic metabolic 2000 panel - Serum or Plasma BASIC METABOLIC PANEL Lab Routine 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) Expected: 02/06/2024, Expires: 05/07/2024 [facility] Comment on above: Expected: 02/06/2024 , Expires: 05/07/2024 Start: 02-06-2024 End: 05-07-2024 Magnesium [Mass/volume] in Serum or Plasma MAGNESIUM Lab Routine 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) Expected: 02/06/2024, Expires: 05/07/2024 [facility] Work Phone: Comment on above: Expected: 02/06/2024 , Expires: 05/07/2024 Start: 02-06-2024 End: 02-06-2024 Patient encounter procedure 02/06/2024 11:40 AM EST Office Visit [facility] [place] [address] [place], [place] [phone] Marilee Thakur MD [address] [place], [place] [phone] hospital follow up [facility] [place] Comment on above: hospital follow up Start: 01-27-2024 End: 01-27-2024 Patient encounter procedure 01/27/2024 10:00 AM EST Appointment [facility] [address] [facility] [address] [place] [phone] [facility] Start: 01-20-2024 End: 01-19-2025 Comprehensive metabolic 2000 panel - Serum or Plasma Comprehensive metabolic panel Lab Routine Dyspnea on exertion Expected: 01/20/2024 (Approximate), Expires: 01/19/2025 [facility] Work Phone: Comment on above: Expected: 01/20/2024 (Approximate), Expires: 01/19/2025 Start: 01-20-2024 End: 01-19-2025 Natriuretic peptide B [Mass/volume] in Blood B-Type Natriuretic Peptide Lab Routine Dyspnea on exertion Bilateral lower extremity edema Expected: 01/20/2024 (Approximate), Expires: 01/19/2025 [facility] Work Phone: Comment on above: Expected: 01/20/2024 (Approximate), Expires: 01/19/2025 Start: 01-20-2024 End: 01-19-2026 US Heart Transthoracic Transthoracic Echo Complete Echocardiography Routine Dyspnea on exertion Bilateral lower extremity edema Expected: 01/20/2024 (Approximate), Expires: 01/19/2026 [facility] Service Area Work Phone: Comment on above: Expected: 01/20/2024 (Approximate), Expires: 01/19/2026 Start: 01-12-2024 End: 01-12-2024 Patient encounter procedure 01/12/2024 9:00 AM EST Office Visit [facility] [place] [address] [facility] [place], [place] [id number] Marilee Thakur MD [address] [facility] [place] [phone] [facility] follow up shortness of breath, edema, 30 pounds fluid, discharged 01/01 [facility] [place] Comment on above: [facility] follow up shortn ess of breath, edema, 30 pounds fluid, discharged 01/01 Start: 01-08-2024 End: 04-08-2024 Basic metabolic 2000 panel - Serum or Plasma BASIC METABOLIC PANEL Lab Routine Medication management Expected: 01/08/2024, Expires: 04/08/2024 [facility] Work Phone: Comment on above: Expected: 01/08/2024 , Expires: 04/08/2024 Start: 01-02-2024 End: 01-02-2024 Patient encounter procedure 01/02/2024 11:20 AM EDT Office Visit [facility] [place] [address] [facility] [place], [place] [address] Marilee Thakur MD [address] [facility] [place] [address] [facility] f/u 12-20-. s/o SOB [facility] [place] Comment on above: [place] [facility] f/u 12-08-24. s/o SOB Start: 01-01-2024 End: 01-01-2024 Patient encounter procedure 01/01/2024 3:20 PM EDT Office Visit [facility] [place] [address] [place] [address] Marilee Thakur MD [address] [place] [address] [place] ER f/u 12-21-23. s/o SOB [facility] [place] Comment on above: [place] ER f/u 12-08. s/o SOB Start: 11-18-2023 End: 11-18-2023 Patient encounter procedure 11/18/2023 3:40 PM EDT Office Visit [facility] [place] [address] [place] [address] Marilee Thakur MD [address] [place] [address] compression hose, needs to be set up with a compression class [facility] [place] Comment on above: compression hose, ne eds to be set up with a compression class Start: 11-09-2023 Covid-19 Vaccine ( season) Covid-19 Vaccine ( season) [facility] Start: 11-09-2023 Covid-19 Vaccine ( season) Covid-19 Vaccine ( season) [facility] Start: 11-09-2023 Influenza vaccination C [facility] Start: 10-24-2023 ANNUAL PCP TEAM FOREIGN EXCHANGE DEALER BRENDA DISEASE VISIT ANNUAL PCP TEAM CHRONIC DISEASE VISIT [facility] Start: 07-02-2023 ANNUAL PCP TEAM FOREIGN EXCHANGE DEALER BRENDA DISEASE VISIT ANNUAL PCP TEAM CHRONIC DISEASE VISIT [facility] Start: 05-02-2023 ANNUAL PCP TEAM FOREIGN EXCHANGE DEALER BRENDA DISEASE VISIT ANNUAL PCP TEAM CHRONIC DISEASE VISIT [facility] Start: 03-21-2023 ANNUAL PCP TEAM FOREIGN EXCHANGE DEALER BRENDA DISEASE VISIT ANNUAL PCP TEAM CHRONIC DISEASE VISIT [facility] Start: 03-10-2023 Behavioral Health Screening Behavioral Health Screening [facility] Start: 03-10-2023 Depression Assessment Depression Ass essment [facility] Start: 01-29-2023 ANNUAL PCP TEAM FOREIGN EXCHANGE DEALER BRENDA DISEASE VISIT ANNUAL PCP TEAM CHRONIC DISEASE VISIT [facility] Start: 12-13-2022 Diabetes mellitus screening Diabetes Screening [facility] Start: 12-05-2022 JOSLYN, Provider : Teresa Mohamud, Status: Pen, Time: 10:30 AM JOSLYN, Provider: Teresa Mohamud, Status: Pen, Time: 10:30 AM [facility] [address] DO Work Phone: Start: 11-08-2022 Covid-19 Vaccine () Covid-19 Vaccine () [facility] Start: 11-08-2022 Influenza vaccination C [facility] Start: 10-29-2022 Adult depression screening assessment DEPRESSION SCREENING [facility] Start: 10-29-2022 ANNUAL PCP TEAM FOREIGN EXCHANGE DEALER BRENDA DISEASE VISIT ANNUAL PCP TEAM CHRONIC DISEASE VISIT [facility] Start: 10-08-2022 End: 12-08-2022 Basic metabolic 2000 panel - Serum or Plasma BASIC METABOLIC PNL Lab Routine Medication management Expected: 10/08/2022, Expires: 12/08/2022 [facility] Work Phone: Comment on above: Expected: 10/08/2022 , Expires: 12/08/2022 Start: 10-08-2022 End: 12-08-2022 Thyrotropin [Units/volume] in Serum or Plasma TSH BLD Lab Routine Acquired hypothyroidism Expected: 10/08/2022, Expires: 12/08/2022 [facility] Work Phone: Comment on above: Expected: 10/08/2022 , Expires: 12/08/2022 Start: 08-20-2022 ANNUAL PCP TEAM FOREIGN EXCHANGE DEALER BRENDA DISEASE VISIT ANNUAL PCP TEAM CHRONIC DISEASE VISIT [facility] Start: 2022 Mammography [facility] Start: 2022 Screening for malign ant neoplasm of breast [facility] Start: 06-28-2022 ANNUAL PCP TEAM FOREIGN EXCHANGE DEALER BRENDA DISEASE VISIT ANNUAL PCP TEAM CHRONIC DISEASE VISIT [facility] Start: 04-23-2022 ANNUAL PCP TEAM FOREIGN EXCHANGE DEALER BRENDA DISEASE VISIT ANNUAL PCP TEAM CHRONIC DISEASE VISIT [facility] Start: 03-10-2022 DEPRESSION ASSESSMENT DEPRESSION ASS ESSMENT [facility] Start: 11-29-2021 End: 01-29-2022 25-hydroxyvitamin D3 [Mass/volume] in Serum or Plasma VITAMIN D 25 HYDROXY Lab Routine Vitamin D deficiency Expected: 11/29/2021, Expires: 01/29/2022 [facility] Work Phone: Comment on above: Expected: 11/29/2021 , Expires: 01/29/2022 Start: 11-29-2021 End: 01-29-2022 CBC W Auto Differential panel - Blood CBC + DIFF Lab Routine Prader-Willi syndrome Expected: 11/29/2021, Expires: 01/29/2022 [facility] Work Phone: Comment on above: Expected: 11/29/2021 , Expires: 01/29/2022 Start: 11-29-2021 End: 01-29-2022 Comprehensive metabolic 2000 panel - Serum or Plasma COMP METABOLIC PANEL Lab Routine Encounter for screening for diabetes mellitus Expected: 11/29/2021, Expires: 01/29/2022 [facility] Work Phone: Comment on above: Expected: 11/29/2021 , Expires: 01/29/2022 Start: 11-29-2021 End: 01-29-2022 Hemoglobin A1c in Blood HGB A1C Lab Routine Elevated blood sugar Expected: 11/29/2021, Expires: 01/29/2022 [facility] Work Phone: Comment on above: Expected: 11/29/2021 , Expires: 01/29/2022 Start: 11-29-2021 End: 01-29-2022 Lipid 1996 panel - Serum or Plasma LIPID PANEL BASIC Lab Routine Lipid screening Expected: 11/29/2021, Expires: 01/29/2022 [facility] Work Phone: Comment on above: Expected: 11/29/2021 , Expires: 01/29/2022 Start: 11-29-2021 End: 01-29-2022 Thyrotropin [Units/volume] in Serum or Plasma TSH BLD Lab Routine Hypothyroidism, unspecified type Expected: 11/29/2021, Expires: 01/29/2022 [facility] Work Phone: Comment on above: Expected: 11/29/2021 , Expires: 01/29/2022 Start: 11-08-2021 Influenza vaccination C [facility] Start: 10-31-2021 FUV, Provider: Teresa Mohamud, Status: Pen, Time: 11:30 AM FUV, Provider: Teresa Mohamud, Status: Pen, Time: 11:30 AM [facility] [address] Work Phone: Start: 04-17-2021 Creatinine measurement Creatinine Le everardo [facility] Start: 04-17-2021 Potassium measurement Potassium Leve l [facility] Start: 04-17-2021 Thyroid stimulating hormone measurement TSH Level [facility] Start: 03-10-2021 DEPRESSION ASSESSMENT DEPRESSION ASS ESSMENT [facility] Start: 12-13-2020 COVID-19 VACCINE (3 - Booster for Moderna series) COVID-19 VACCINE (3 - Booster for Moderna series) [facility] Start: 11-08-2020 Influenza vaccination INFLUENZA (#1) [facility] Start: 09-07-2020 COVID-19 VACCINE (3 - Booster for Moderna series) COVID-19 VACCINE (3 - Booster for Moderna series) [facility] Start: 12-06-2019 25 hydroxy includes fractions if performed Vitamin D 25-Hydroxy [facility] [employer] Work Phone: Start: 12-06-[address] [facility] [employer] Work Phone: Start: 12-06-2019 EKG study Electrocardiogram EKG U [facility] [employer] Work Phone: Start: 12-06-2019 HbA1c (Bld) [Mass fraction] Hemoglobin A1C [facility] [employer] Work Phone: Start: 12-06-2019 Hepatic function panel Hepatic Funct ion Panel [facility] Work Phone: Start: 12-06-2019 Lipid panel Lipid Panel [facility] Work Phone: Start: 12-06-2019 Urea, electrolytes a nd creatinine measurement Renal Function Panel [facility] Work Phone: Start: 12-06-2019 Urnls dip stick/tabl et rgnt auto w/o microscopy Urinalysis [facility] [employer] Work Phone: Start: 05-26-2019 Adult depression screening assessment DEPRESSION SCREENING [facility] Start: 12-31-2017 Echocardiography Echocardiogram [facility] Start: 2012 Zoledronic acid therapy Alpha- 1 Antitrypsin Deficiency Screening [facility] Start: 04-11-2007 PNEUMOCOCCAL (2 - PCV) PNEUMOCOCCAL (2 - PCV) [facility] Start: 04-11-2007 Pneumococcal vaccination [facility] Start: 04-11-2007 Pneumococcal Vaccine : Pediatrics (0 to 5 Years) and At-Risk Patients (6 to 64 Years) (2 of 2 - PCV) Pneumococcal Vaccine: Pediatrics (0 to 5 Years) and At-Risk Patients (6 to 64 Years) (2 of 2 - PCV) [facility] Start: 04-11-2007 Pneumococcal Vaccine : Pediatrics and At-Risk Adult Patients (2 of 2 - PCV) Pneumococcal Vaccine: Pediatrics and At-Risk Adult Patients (2 of 2 - PCV) [facility] Start: 07-01-2003 Screening for malign ant neoplasm of cervix [facility] Start: 2001 Hepatitis B Vaccine (1 of 3 - 19+ 3-dose series) Hepatitis B Vaccine (1 of 3 - 19+ 3-dose series) [facility] Start: 2001 Hepatitis B Vaccines (1 of 3 - 19+ 3-dose series) Hepatitis B Vaccines (1 of 3 - 19+ 3-dose series) [facility] Start: 2000 Anxiety Screening Anxiety Screening [facility] Start: 2000 Depression Screening Depression Scre ening [facility] Start: 2000 Hepatitis C screening Hepatitis C Sc reening [facility] Start: 2000 SPIROMETRY SPIROMETRY [facility] Start: 07-01-1995 Varicella vaccination Varicell a Vaccines (1 of 2 - 13+ 2-dose series) [facility] Start: 07-01-1983 MMR Vaccines (1 of 1 - Standard series) MMR Vaccines (1 of 1 - Standard series) [facility] Start: 1982 HEPATITIS B (1 of 3 - 3-dose series) HEPATITIS B (1 of 3 - 3-dose series) [facility] Start: 1982 Hepatitis B Vaccine (1 of 3 - 3-dose series) Hepatitis B Vaccine (1 of 3 - 3-dose series) [facility] Start: 1982 HIV screening HIV Screening [facility] Start: 1982 Medicare Annual Well ness Visit Medicare Annual Wellness Visit (AWV) [facility] Bacteria identified in Urine by Culture BACTERIAL CULTURE, URINE Microbiology Routine Dysuria Hematuria, unspecified type 04/01/2024 11:51 AM [facility] End: 06-28-2022 Echocardiography ECHO Cardiology Routine Prader-Willi syndrome SOB (shortness of breath) 1 Occurrences starting 06/28/2021 until 06/28/2022 [facility] Work Phone: Comment on above: 1 Occurrences starti ng 06/28/2021 until 06/28/2022 Urinalysis complete panel - Urine URINALYSIS, WITH MICROSCOPIC Lab Routine Dysuria Hematuria, unspecified type 04/01/2024 11:51 AM EST [facility] End: 05-01-2025 US Abdomen US SOFT TISSUE ABDOMEN Radiology Routine Abdominal mass, unspecified abdominal location 1 Occurrences starting 04/01/2024 until 05/01/2025 [facility] Comment on above: 1 Occurrences starti ng 04/01/2024 until 05/01/2025 US Abdomen US SOFT TISSUE A BDOMEN Radiology Routine Abdominal mass, unspecified abdominal location 04/14/2024 11:30 AM EST [facility] Work Phone: End: 05-21-2025 US Abdomen US SOFT TISSUE ABDOMEN Radiology Routine Soft tissue mass 1 Occurrences starting 04/21/2024 until 05/21/2025 [facility] Work Phone: Comment on above: 1 Occurrences starti ng 04/21/2024 until 05/21/2025 [facility] NEGATED: Highlighted row has been ruled out! Planned Goals not documented [facility] Work Phone: Immunizations Immunization Date Immunization Notes Care Provider Shani abdias 01-12-2024 influenza, seasonal, injectable Marilee Thakur MD Work Phone: [facility] 01-29-2022 COVID-19 booster vaccine, age 12+ yr, bivalent (PFIZER-BIONTECH) Marilee Thakur MD Work Phone: [facility] 07-13-2020 COVID-19 vaccine, fu ll dose (MODERNA) Marilee Thakur MD Work Phone: [facility] Work Phone: 06-15-2020 COVID-19 vaccine, fu ll dose (MODERNA) Marilee Thakur MD Work Phone: [facility] Work Phone: 12-22-2019 influenza, injectabl e, quadrivalent, contains preservative Marilee Thakur MD Work Phone: [facility] Work Phone: 12-22-2019 influenza virus vaccine, unspecified formulation Marilee Thakur MD Work Phone: [facility] [facility] 01-19-2019 influenza, injectabl e, quadrivalent, contains preservative Marilee Thakur MD Work Phone: [facility] 11-26-2017 influenza, injectabl e, quadrivalent, preservative free Marilee Thakur MD Work Phone: [facility] Work Phone: 01-27-2017 influenza, injectabl e, quadrivalent, contains preservative Marilee Thakur MD Work Phone: [facility] Work Phone: 12-13-2015 influenza, injectabl e, quadrivalent, contains preservative Marilee Thakur MD Work Phone: [facility] 01-09-2015 tetanus toxoid, redu abdelrahman diphtheria toxoid, and acellular pertussis vaccine, adsorbed Marilee Thakur MD Work Phone: [facility] Work Phone: 12-14-2014 influenza, injectabl e, quadrivalent, contains preservative Marilee Thakur MD Work Phone: [facility] 12-13-2013 influenza, seasonal, injectable Marilee Thakur MD Work Phone: [facility] 01-01-2013 influenza virus vaccine, unspecified formulation Marilee Thakur MD Work Phone: [facility] Work Phone: 12-13-2010 influenza virus vaccine, unspecified formulation Marilee Thakur MD Work Phone: [facility] 05-25-2010 tuberculin skin test ; purified protein derivative solution, intradermal Marilee Thakur MD Work Phone: [facility] 01-30-2010 influenza virus vaccine, unspecified formulation Marilee Thakur MD Work Phone: [facility] Work Phone: 05-29-2009 tuberculin skin test ; purified protein derivative solution, intradermal Marilee Thakur MD Work Phone: [facility] Work Phone: 12-27-2008 influenza virus vaccine, unspecified formulation Marilee Thakur MD Work Phone: [facility] 02-03-2008 influenza virus vaccine, unspecified formulation Marilee Thakur MD Work Phone: [facility] 01-06-2007 influenza virus vaccine, unspecified formulation Marilee Thakur MD Work Phone: [facility] Work Phone: 04-11-2006 pneumococcal polysaccharide vaccine, 23 valent Marilee Thakur MD Work Phone: [facility] Work Phone: 01-28-2006 influenza virus vaccine, unspecified formulation Marilee Thakur MD Work Phone: [facility] 11-14-2003 tetanus and diphther ia toxoids, adsorbed, preservative free, for adult use (2 Lf of tetanus toxoid and 2 Lf of diphtheria toxoid) Marilee Thakur MD Work Phone: [facility] Work Phone: NEGATED: Highlighted row has not occurred!10--2021 influenza, injectable, quadrivalent, contains preservative Marilee Thakur MD Work Phone: [facility] Work Phone: Payers Date Payer Category Payer Unknown 2024 Unknown XX 2023 Self-pay [id number] [address] [facility] [place] MEDICAID [id number] 2015-Present [phone] [address] [place] [address] Medicaid [id number] [id number] 2015 Medicaid [id number]. 1.13.159.2.7.3.6 [id number] 2013 Medicaid [id number] 2007 Medicare MEDICARE MEDICAR E A AND B [id number] 2007-Present [phone] [address] [address] [place] [address] Medicare [id number] [id number] 2007 Medicare [id number]. 1.13.159.2.7.3.6 12262.315 2007 Medicare [id number] 1982 Unknown [id number] 2.16.840.1.424283.3.579.2.5 1982 Unknown [id number] 2.16.840.1.068289.3.579.2.1245 1982 Unknown [id number] 2.16.840.1.346731.3.579.2.627 1982 Unknown [id number] 2.840.1.699716.3.579.2.62 1982 Unknown [id number] 04.25.830.1.987751.3.579.2. 1982 Unknown [id number] 04.25.830.1.725032.3.579.2.62 1982 Unknown [id number] .1.345871.3.579.2.1246 1982 Unknown [id number] 04.25.830.1.641220.3.579.2.1246 1982 Unknown [id number] .1.262380.3.579.2.1246 1982 Unknown [id number] .1.094589.3.579.2.1246 1982 Unknown [id number] .1.450317.3.579.2. 1982 Unknown [id number] .1.771360.3.579.2.1243 1982 Unknown [id number] .1.075945.3.579.2.1243 1982 Unknown [id number] .1.832205.3.579.2.12403-10-1900 Unknown [id number] 04.25.830.1.424584.3.579.2.627 Medicare [id number] Unknown [id number] 04.25.830.1.625763.3.579.2.462 Unknown [id number] 840.1.364037.3.579.2.462 Unknown [id number] 840.1.734978.3.579.2.462 Unknown [id number] 04.25.830.1.051763.3.579.2.462 Unknown [id number] 2.16.840.1.227470.3.579.2.462 Unknown [id number] 2.16.840.1.441810.3.579.2.462 Unknown [id number] 2.16.840.1.246973.3.579.2.462 Unknown [id number] 2.16.840.1.313053.3.579.2.462 Unknown [id number] 2.16.840.1.810393.3.579.2.462 Unknown [id number] 2.16.840.1.138538.3.579.2.462 Unknown [id number] 2.16.840.1.192162.3.579.2.462 Unknown [id number] 2.16.840.1.847953.3.579.2.462 Unknown [id number] 2.16.840.1.130217.3.579.2.462 Unknown [id number] 2.16.840.1.489378.3.579.2.462 Unknown [id number] 2.16.840.1.316582.3.579.2.462 Unknown [id number] 2.16.840.1.631198.3.579.2.462 Unknown [id number] 2.16.840.1.300299.3.579.2.462 Unknown [id number] 2.16.840.1.495045.3.579.2.462 Unknown [id number] 2.16.840.1.902450.3.579.2.462 Unknown [id number] 2.16.840.1.529893.3.579.2.462 Unknown [id number] 2.16.840.1.399022.3.579.2.462 Unknown [id number] 2.16.840.1.537053.3.579.2.462 Unknown [id number] 2.16.840.1.089559.3.579.2.462 Unknown [id number] 2.16.840.1.921462.3.579.2.462 Unknown [id number] 2.16.840.1.919577.3.579.2.462 Unknown [id number] 2.16.840.1.483843.3.579.2.462 Unknown [id number] 2.16.840.1.218178.3.579.2.462 Unknown [id number] 2.16.840.1.507708.3.579.2.462 Unknown [id number] 2.16840.1.021497.3.579.2.462 Unknown [id number] 2.16.840.1.174345.3.579.2.462 Unknown [id number] 2.840.1.224684.3.579.2.462 Unknown [id number] 2.840.1.649094.3.579.2.462 Unknown [id number] 2.16840.1.898278.3.579.2.462 Unknown [id number] 2.840.1.898742.3.579.2.462 Unknown [id number] 2.840.1.254344.3.579.2.462 Unknown [id number] 2.840.1.932275.3.579.2.462 Unknown [id number] 2.16840.1.015383.3.579.2.462 Unknown [id number] 2.16840.1.407713.3.579.2.462 Unknown [id number] 2.16840.1.804701.3.579.2.462 Unknown [id number] 2.16840.1.461410.3.579.2.462 Unknown [id number] 2.16.840.1.503002.3.579.2.462 Unknown [id number] 2.16.840.1.928295.3.579.2.462 Unknown [id number] 2.16.840.1.813146.3.579.2.462 Unknown [id number] 2.16.840.1.743971.3.579.2.462 Unknown [id number] 2.16.840.1.761372.3.579.2.462 Unknown [id number] 2.16.840.1.127610.3.579.2.462 Unknown [id number] 2.16.840.1.252054.3.579.2.462 Unknown [id number] 2.16.840.1.131453.3.579.2.462 Unknown [id number] 2.16.840.1.331445.3.579.2.462 Unknown [id number] 2.16.840.1.005352.3.579.2.462 Unknown [id number] 2.16.840.1.348702.3.579.2.462 Unknown [id number] 2.16.840.1.106784.3.579.2.462 Unknown [id number] 2.16.840.1.489643.3.579.2.462 Unknown [id number] 2.16.840.1.395911.3.579.2.462 Social History Date Type Detail Facility Assertion [facility] Start: 07-01-2022 End: 10-23-2022 Lives in intermediate Lives in intermediate [facility] Work Phone: Start: 11-21-2010 End: 12-04-2023 Tobacco smoking status NHIS Never smoked tobacco [facility] Start: 04-23-2021 End: 04-06-2024 Alcohol intake Current non-drinker of alcohol (finding) [facility] Start: 1980 Sex Assigned At Not on file C [facility] Start: 05-21-2021 End: 05-03-2024 Exposure to SARS-CoV-2 (event) Not sure [facility] Start: 11-21-2010 End: 12-04-2023 Tobacco use and exposure Smokeless tobacco non-user [facility] Work Phone: Start: 05-27-2022 End: 06-02-2023 Tobacco smoking status NHIS Unknown if ever smoked [facility] Start: 09-30-2014 None [facility] Start: 05-10-2019 - [facility] Start: 09-30-2014 Non-smoker [facility] Start: 1980 Sex Assigned At Female [facility] Start: 07-01-2022 End: 10-23-2022 Tobacco use panel [facility] Work Phone: Adult Depression Screening Assessment 0 [facility] Work Phone: (I/We) worried wheth er (my/our) food would run out before (I/we) got money to buy more. Never true [facility] Work Phone: Start: 05-03-2024 End: 05-04-2024 Alcoholic beverage intake Lifetime non-drinker (finding) [facility] Work Phone: Goals Date Patient Goal Desired Activity /State Personal health goal Functional Status Date Assessment Result Facility 05-30-2024 Functional Status Room check performed [facility] 05-30-2024 Functional Status [facility] 05-30-2024 Functional Status Done [facility] 05-30-2024 Functional Status [facility] 05-29-2024 Functional Status [facility] 05-29-2024 Functional Status Nurse Alfredo morel q2hrs Performed 7am-3pm [facility] 05-29-2024 Functional Status [facility] 05-29-2024 Functional Status Hospital bed [facility] 05-29-2024 Functional Status [facility] 05-29-2024 Functional Status [facility] 05-29-2024 Functional Status [facility] 05-28-2024 Functional Status [facility] 05-28-2024 [facility] Functional Status [facility] 05-27-2024 Functional Status Dinner Percent 100 [facility] 05-27-2024 Functional Status [facility] 05-27-2024 Functional Status [facility] 05-27-2024 Functional Status Bed Mobility S upine to Sit Max A [facility] 05-27-2024 Functional Status [facility] 05-26-2024 Functional Status [facility] 05-26-2024 Functional Status [facility] 05-26-2024 Functional Status Patient refused [facility] 05-25-2024 Functional Status [facility] 05-24-2024 Functional Status Evening Snack Percent 100 [facility] 05-24-2024 Functional Status [facility] 05-24-2024 Functional Status [facility] 05-24-2024 Functional Status [facility] 05-23-2024 Functional Status [facility] 05-23-2024 Functional Status [facility] 05-22-2024 Functional Status [facility] 05-22-2024 Functional Status [facility] 05-21-2024 Functional Status Transparent si licone dressing [facility] 05-21-2024 Functional Status [facility] 05-19-2024 [...] Status Living Situati on Extended Care Facility [facility] 05-13-2024 Functional Status Device protect ion, Pain management, Positioning/Turning, Intervention attempted, not successful [facility] 05-08-2024 Functional Status Awake [facility] 02-27-2024 Functional Status Awake [facility] 12-21-2023 Functional Status Ambulation in [facility] 12-21-2023 Functional Status Standard Safet y ID band on, Visitor at bedside [facility] 08-31-2014 Are you deaf, or do you have serious difficulty hearing No 08/31/2014 4:25 PM EDT Rani Cruz Cma No [facility] 08-31-2014 Are you blind, or do you have serious difficulty seeing, even when wearing glasses No 08/31/2014 4:25 PM EDT Rani Cruz Cma No [facility] 08-31-2014 Do you have serious difficulty walking or climbing stairs No 08/31/2014 4:25 PM EDRani Watson Cma No [facility] 08-31-2014 Do you have difficul ty dressing or bathing No 08/31/2014 4:25 PM EDRani Watson Cma No [facility] 05-23-2014 Because of a physica l, mental, or emotional condition, do you have difficulty doing errands alone such as visiting a physician's office or shopping Yes 05/23/2014 3:37 PM EDT Rosina Schofield RN Yes [facility] NEGATED: Highlighted row Functional performance Functional status health issues are not documented Disease [facility]Hxry[facility] e Work Phone: Mental Status Date Assessment Result Facility 05-30-2024 Mental Status Orientation [address] 05-30-[address] [facility] 05-29-[address] [facility] 05-29-2024 Mental Status Orientation Asse ssment Oriented [address] 05-28-[address] [facility] 05-28-[address] [facility] 05-08-2024 Mental Status Oriented [address] 02-27-2024 Mental Status Orientation Orie nted x [address] [place] [address] 12-21-2023 Mental Status Orientation [address] 12-21-2023 Mental Status [facility] 08-31-2014 Because of a physical, mental, or emotional condition, do you have serious difficulty concentrating, remembering, or making decisions Yes 08/31/2014 4:25 PM EDT Rani Cruz Cma Yes [facility] NEGATED: Highlighted row Cognitive function [Interpretation] Cognitive status health issues are not documented Disease SD-Lqsvaiho-Pdgicism Work Phone: Clinical Notes 01-16-2016 to 07-06-2024 Jailene Kirkland MA - 07/06/2024 8:11 AM EDTTelephone Encounter - Pepper Walsh RN - 06/03/2024 4:10 PM EDTTelephone Encounter - Pepper Walsh RN - 06/03/2024 4:10 PM EDT Note Date & Type Note Facility 07-06-2024 Note HNO ID: [id number] Author: JAILENE KIRKLAND MA Service: ? Author Type: Teletype Mechanic Type: Progress Notes Filed: 07/06/2024 09:26 Note [...] Kirkland MA July 06, 2024 8:11 AM [facility] 07-06-2024 History of Presen t illness Narrative [...] 2024 8:11 AM documented in this encounter [facility] 07-06-2024 Note Patient Outreach (NE TNAV) SIA ABDUL ([id number]) 1980 F Date Time Provider Department 07/06/24 [...] BLAIR PCSA Prescriptions as of 07/06/2024 - dcsiupk-vplmkwbpq-unbwwbt D3 (OYSTER SHELL CALCIUM-VITAMIN D) 500 mg-5 [...] 1 tablet by mouth once daily. - Akkaz-8-XOB-EPA-Fish Oil 1,000 mg (120 mg-180 mg) cap [...] [J30.9] SLEEP APNEA (more content not included)... [facility] 06-03-2024 Telephone encounter Note Clarence Calderon calling with [facility] to update provider that due to patient having a prolonged stay in hospital, there are discontinuing her home care nursing and therapy orders at this time. Pepper Walsh RN [facility] 06-03-2024 Miscellaneous Notes Clarence Calderon calling with [facility] to update provider that due to patient having a prolonged stay in hospital, there are discontinuing her home care nursing and therapy orders at this time. Pepper Walsh RN documented in this encounter [facility] 05-30-2024 Hospital Discharg e instructions Patient Education [...] symptoms. Follow these instructions at home: Take hzbn-hnz-gxsihsn and prescription medicines only as told by your health care provider. Weigh yourself daily. Your target weight is lb ( kg). ?Call your health care provider if you gain more than lb ( kg) in a day, or more than lb ( kg) in one week. Eat a heart-healthy diet. Work with a diet and food and nutrition supervisor (dietitian) to create an eating plan that is best for you. Keep all follow-up visits as told by your health care provider. This is important. Where to find more information [employer]: www.heart.org Summary Follow the action [...] 04/05/2017 Document Revised: 02/06/2018 Document Reviewed: 04/05/2017 [employer] Patient Education 2020 [employer] Follow Up Care 05/12/2024 22:43:19 With:Discharge to [facility], 2pm, Address:Unknown When:1-2 days With:MARILEE THAKUR MD Address: [address] [place] [address]- When:Within 4 Week(s) With:KEELY ORDONEZ MD Address: [address] [place] [address]- [phone] When:Within 4 Week(s) With:FRANKLYN STAPLETON MD Address: [address] [facility] [address] [place] [address]- [phone] When:Within 4 Week(s) With:ANSELMO FALK MD Address: [address] [facility] [address] [place] [address]- [phone] When:06/04/2024 13:45:00 [facility] 05-30-2024 Note Discharge Instructions Thank you for allowing [facility] to assist you with your healthcare needs. [...] Up 06/04/2024 01:45 PM EDT MARCELINO FALK [facility] Confirmed CV OV CHF 06/22/2024 10:30 AM EDT [facility] Confirmed Follow Up Appointments Follow Up with Discharge to [facility], 2pm, When:Within 1-2 days Follow Up with MARILEE THAKUR MD When:In 4 weeks Where:[address] [place] [address]- Follow Up with KEELY ORDONEZ MD When:In 4 weeks Where:[address] [place] [address]- [phone] Follow Up with FRANKLYN STAPLETON MD When:In 4 weeks Where:[address] [facility] [address] [facility] [place] [address] [phone] Follow Up with ANSELMO FALK MD When:06/04/2024 01:45 PM EDT Where:[address] [facility] [address] [facility] [place] [address]- [phone] The Following Activity and Diet Have Been [...] symptoms. Follow these instructions at home: Take rztq-mmm-nqnjkas and prescription medicines only as told by your health care provider. Weigh yourself daily. Your target weight is lb ( kg). ? Call your health care provider if you gain more than lb ( kg) in a day, or more than lb ( kg) in one week. Eat a heart-healthy diet. Work with a diet and food and nutrition supervisor (dietitian) to create an eating plan that is best for you. Keep all follow-up visits as told by your health care provider. This is important. Where to find more information [employer] Association: www.heart.org Summary Follow the action [...] 04/05/2017 Document Revised: 02/06/2018 Document Reviewed: 04/05/2017 [employer] Patient Education 2020 [employer] Additional Information VACCINATE! IT SAVES LIVES! Members of the community who have not yet received the COVID-19 vaccine and would like to receive it can visit one of [facility] vaccine clinics. There are many vaccine clinic locations within the [facility]. For locations and available times, please visit https://gettheshot.coronavirus.o hio.gov/. It is important to note that some COVID mobile vaccine clinics are held outdoors and may be canceled in rainy or stormy conditions. To learn more about pediatric vaccinations (ages 5-11), we invite you to visit the [employer] [facility] webpage. https://www.Paperspines.org/p ages/0903-Guztl-Tocgwtzslea-Freq qehcnd-Bwlda-Khjzoqpda.html To learn more about the COVID-19 vaccine, we invite you to visit the CDC website for a list of frequently asked questions.https://www.cdc.gov/co ronavirus/2019-ncov/vaccines/faq .html [employer] Patient Portal Access Instructions: Stay connected with your healthcare team and access your personal medical information anytime with the [employer] Patient Portal. Please follow the directions below to create your [employer] account: 1.Access the email account you provided upon registration to the hospital/physician office.2.Look for an invitation email from [facility].3.Open the email and access the invitation link: Accept Invitation to [facility].4.Fill in the required perez to create your account. To access your account, visit [email or web address]/[email or web address]. Click the blue button labeled Access Patient [...] you will allow to register on the [facility] Patient Portal for access to your information. You can also access the [facility] Patient Portal on the [facility] cristian. Simply click on Patient Portal and then log into your account. If you would like to receive a full copy of your medical records, please contact the [facility] Medical Records Department by calling [phone], Friday through Friday between 8 a.m. and [...] Call your local pharmacy or go to http://OpenTable.Domo Safety/9M6Cs2r to find one close to you.3.Make use of household items: Use cat litter or old coffee grounds to dispose medications if other options are not available. Mix your drugs with these household products, seal them in an airtight container and throw it into the garbage. Call [facility]: [phone] to be sure your drugs can be [...] aware that I should contact my doctor. Patient/Children'S Tutor Signature: Date/Time: Relationship to Patient: Witness Name/Signature: Date/Time: [facility] 05-30-2024 Discharge summary Date of Service 05/30/24 [...] Prader-Willi, and intellectual disability who presented to [facility] ED on 05/12/24 after having increased shortness [...] been previously intubated. [facility]. More recently, Patient was discharged 05/05 after treatment for volume overload secondary to heart failure exacerbation. Patient established with tutorial laboratory supervisor Dr. Isi France. Initial lab work showed [...] treatment center if possible at a [facility]. For now okay to start GLP-1 if mother brings this medication in from outside. (She was seeing a barrel rib matting machine operator as an outpatient who recommended starting a GLP-1) otherwise 1000-calorie diet as prescribed by her barrel rib matting machine operator. Allergies Bee Stings Dilantin misc non-codified allergy [...] with endocrinology as outpatient. Medications New Prescription [id number] Milligram by mouth every 6 hours as [...] MARILEE THAKUR MD When:In 4 weeks Where:[address] [place] [address]- Follow Up with KEELY ORDONEZ MD When:In 4 weeks Where:[address] [place] [address]- [phone] Follow Up with FRANKLYN STAPLETON MD When:In 4 weeks Where:[address] [facility] [address] [facility] [place] [address] [phone] Follow Up with Discharge to [facility]/supervisor intermediates acute care [facility], , 4pm When:Within 1-2 days Follow Up with ANSELMO FALK MD When:06/04/2024 01:45 PM EDT Where:[address] [place] [address] [address] [facility] [place] [address]- [phone] Follow Up Appointments No qualifying data available. [...] MISTY HADDAD DO on 05/30/2024 09:29 AM [facility] 05-30-2024 Note Date of Service 05/30/2024 Chief [...] treatment center if possible at a [facility]. For now okay to start GLP-1 if mother brings this medication in from outside. Otherwise 1000-calorie diet as prescribed by her barrel rib matting machine operator. Level of Care Indication SD monitor (other: specify in note) DVT Prophylaxis Heparin SQ Maintenance IVF Indication NA / No maintenance IVF Indwelling Urinary Catheter Indication NA No indwelling catheter Timeline of Discharge LTAC pending availability. Anticipated DC Disposition skilled nursing acute care / [facility] Signed by MISTY HADDAD DO on 05/30/2024 08:49 AM [facility] 05-29-2024 Pulmonary Progres s note Date of [...] history of Prader-Willi syndrome resident at the intermediate who was admitted with mixed respiratory failure [...] FRANKLYN STAPLETON MD on 05/29/2024 04:45 PM [facility] 05-29-2024 Note Date of Service 05/29/24 Chief Complaint Sia Abdul is a 43 year old female with PMH of HFpEF, Prader-Willi, and intellectual disability who presented to [facility] ED on 05/12/24 after having increased shortness [...] been previously intubated. She was transferred to [facility] for ongoing care on 05/13/2024. More recently, Patient was discharged 05/05 after treatment for volume overload secondary to heart failure exacerbation. Patient established with tutorial laboratory supervisor Dr. Isi France. Initial lab work showed [...] Her mother requested a bed at the [facility] location which does not have any availability. [...] treatment center if possible at a [facility] [place]. For now okay to start GLP-1 if mother brings this medication in from outside. Otherwise 1000-calorie diet as prescribed by her barrel rib matting machine operator. Level of Care Indication SD monitor (other: specify in note) DVT Prophylaxis Heparin SQ Maintenance IVF Indication NA / No maintenance IVF Indwelling Urinary Catheter Indication NA No indwelling catheter Timeline of Discharge LTAC pending availability. Anticipated DC Disposition skilled nursing acute care / [facility] Digit[facility] Signed by MISTY HADDAD DO on 05/29/2024 01:42 PM [facility] 05-28-2024 Pulmonary Progres s note Date of Service 05/28/2024 Subjective Clinically appears to be doing well. Denies any shortness of breath or wheezing or chest pain. Oxygen 3 L/min by nasal cannula saturating 97 to 98%. Using AVAPS at night. 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] Sign Date: 05/27/2024 9:26:24 AM Ordering Provider: [facility]03-19-2025 Note Date of Service 05/26/2024 Chief Complaint Asked to see patient again due to worsening hypercapnia Subjective This patient is a 43-year-old white female with history of Prader-Willi syndrome, resident at [facility]. She was initially admitted with mixed hypercapnic [...] FRANKLYN STAPLETON MD on 05/26/2024 06:47 PM [facility] [id number] NoteHNO ID: [id number] Author: AAKASH MANUEL RN Service: ? Author [...] Aakash Manuel RN May 26, 2024 3:37 [facility]03-19-2025 History of Present illness Narrative* Aakash Manuel [...] 26, 2024 3:37 PM documented in [facility] encounter[facility] NotePatient Outreach ([facility]) SIA ABDUL ([id number]) 1980 F Date Time Provider Department 05/26/24 [...] Fully Assessed Prescriptions as of 05/26/2024 - eyyyhpc-hkohvgtmp-tvmcfvq D3 (OYSTER SHELL CALCIUM-VITAMIN D) 500 mg-5 [...] 1 tablet by mouth once daily. - Nyqke-7-OAL-EPA-Fish Oil 1,000 mg (120 mg-180 mg) cap [...] 12/13/2013 Amenorrhea [N91.2] 06/18/2011 (more content not included)...[facility]03-18-2025 Note* Exam Date Time Procedure Performing Provider Status 05/25/24 1:38 PM XR Chest 1 View Contributor_system, FU JI; Auth (Verified) [id number] ORIGINAL EXAMINATION: ONE XRAY VIEW OF THE [...] and stable support apparatus. Interpreted by: Praveen Johnson MD Preliminary Report By: Praveen Johnson MD Electronically signed By Praveen Johnson MD Dictated Date: 05/25/2024 9:41:46 PM Prelim Date: 05/25/2024 9:45:43 PM Sign Date: 05/25/2024 9:45:43 PM Ordering Provider: [facility]03-17-2025 Cardiology Consult note Date of Service 05/24/2024 [...] LIEN HARRISON MD on 05/24/2024 02:21 PM [facility] [id number] Cardiology Consult note Date of Service 05/24/2024 [...] LIEN HARRISON MD on 05/24/2024 02:21 PM [facility] [id number] Note* Exam Date Time Procedure Performing Provider Status 05/24/24 10:16 AM Electrocardiogram - EKG - CV PRANAV EATON MD; Auth (Verified) ECG Final Report SINUS RHYTHM ABNORMAL T, CONSIDER ISCHEMIA, ANTEROLATERAL LEADS Electronic Signature: PRANAV DAVE MD 05/26/2024 08:44:31 [facility] [id number] Cardiology Progress note Subjective No new complaint [...] BiPAP settings prior to transferring back to intermediate. Initially intermediate was not willing to accept the patient [...] RADHA ROSARIO MD on 05/23/2024 02:19 PM [facility] [id number] Cardiology Progress note Date of Service 05/21/2024 [...] BiPAP settings prior to transferring back to intermediate. Initially intermediate was not willing to accept the patient [...] FILOMENA LOUIS MD on 05/21/2024 04:24 PM [facility] [id number] Cardiology Progress note Date of Service 05/22/2024 [...] BiPAP settings prior to transferring back to intermediate. Initially intermediate was not willing to accept the patient [...] FREDDIE COLEY MD on 05/22/2024 12:18 PM [facility] [id number] Consult note Date of Service May 22, 2024 Reason for Consultation Transfer of service Referring Physician Dr James Pate History of Present Illness A 43 years old female with past medical history significant for Prader-Willi syndrome, intellectualdisability, HFpEF, DACIA, pulmonary hypertension presented to [place] ER on May 13 with a concern [...] sleep apnea/OHS, pulmonology consulted theyrecommended AVAPS, initially intermediate was not willing to accept the patient [...] of azithromycin today Note was written using [employer] filter tank tender helper head software. Some of the meaning of the words and sentences might have changed during filter tank tender helper head, if there was ever some confusion about [...] KAYLAN LUGO MD on 05/22/2024 02:33 PM [facility] [id number] Cardiology Progress note Date of Service 05/22/2024 [...] mEq 2 tab(s), Oral, AsDirected Lab Results [facility] 05/22/24 02:52 05/21/24 12:42 05/21/24 03:23 [...] BiPAP settings prior to transferring back to intermediate. Initially intermediate was not willing to accept the patient [...] FREDDIE COLEY MD on 05/22/2024 12:18 PM [facility] [id number] Cardiology Progress note Date of Service 05/21/2024 [...] BiPAP settings prior to transferring back to intermediate. Initially intermediate was not willing to accept the patient [...] FILOMENA LOUIS MD on 05/21/2024 04:24 PM [facility] [id number] Note* Exam Date Time Procedure Performing Provider Status 05/21/24 1:25 PM VL Venous US/Doppler Both Legs(for DVT) RAVI SALDAÑA MD; Auth (Verified) [facility] [id number] Heart failure Progress note Date of Service [...] medical history HFpEF, Prader-Willi/intellectual disability presented to [place] ED 05/12/2024 with increased shortness of breath. Initial rhythm was PEA and 2 rounds of CPR completed prior to ROSC without any medication. Intubated. Transferred to [facility]. Upon admissionto MICU, CXR showed pulmonary [...] FILOMENA LOUIS MD on 05/20/2024 04:18 PM [facility] [id number] Note* Exam Date Time Procedure Performing Provider Status 05/20/24 6:[address] Angiography Chest w/ Contrast MIKEY FOWLER MD; Auth (Verified) [id number] ORIGINAL EXAMINATION: CTA OF THE CHEST 05/20/2024 [...] Sign Date: 05/20/2024 6:38:01 PM Ordering Provider: [facility]03-13-2025 Heart failure Progress note Date of Service [...] medical history HFpEF, Prader-Willi/intellectual disability presented to [place] ED 05/12/2024 with increased shortness of breath. Initial rhythm was PEA and 2 rounds of CPR completed prior to ROSC without any medication. Intubated. Transferred to [facility]. Upon admissionto MICU, CXR showed pulmonary [...] FILOMENA LOUIS MD on 05/20/2024 04:18 PM [facility] [id number] Telephone encounter Note* Telephone Encounter - Eulalia [...] 2024 Requested Prescriptions Pending Prescriptions Disp Refills oypycua-ipwiwaoif-fganrxo D3 (OYSTER SHELL CALCIUM-VITAMIN D) 500 mg-5 mcg (200 unit) per tablet 62tablet 11 Sig: Take 1 tablet by mouth two times a day with meals. Eulalia Laureano RN May 20, 2024 12:31 PM [facility]03-13-2025 Miscellaneous Notes* Telephone Encounter - Eulalia Laureano [...] 2024 Requested Prescriptions Pending Prescriptions Disp Refills gcmuhby-tyvesklpj-cdwgxmy D3 (OYSTER SHELL CALCIUM-VITAMIN D) 500 mg-5 mcg (200 unit) per tablet 62tablet 11 Sig: Take 1 tablet by mouth two times a day with meals. Eulalia Laureano RN May 20, 2024 12:31 PM documented in this encounterAv[facility]03-[facility]25 Note [facility] Cardiac Critical Cardiac Progress Note Date: 05/20/2024 09:17:23 Patient Name: SAI ABDUL : 1980 ICU Admit Date: 05/18/2024 Intubation Date: N/A Reason for Consult: Hypoxic respiratory failure HPI: Sia Abdul is a 43 year old female with PMH of HFpEF, Prader-Willi, and intellectual disability who presented to [facility] ED on 05/12/24 after having increased shortness [...] been previously intubated. She was transferred to [facility] for ongoing care. She typically receives [...] Nursing Notes. [place] services I provided 35965 40 minutes. The time involved in the [...] MORENA FELIPE MD on 05/20/2024 09:53 AM [facility] [id number] Note* Exam Date Time Procedure Performing Provider Status 05/19/24 2:40 PM XR Chest 1 View ESTHER CABALLERO MD; Aut h (Verified) [id number] ORIGINAL EXAMINATION: ONE XRAY VIEW OF THE [...] 05/19/2024 2:45:28 PM Ordering Provider: BREE FABIAN [facility] [id number] Note [facility] Cardiac Critical Cardiac Progress Note Date: 05/19/2024 10:14:21 Patient Name: SIA ABDUL : 1980 ICU Admit Date: 05/18/2024 Intubation Date: N/A Reason for Consult: Hypoxic respiratory failure HPI: Sia Abdul is a 43 year old female with PMH of HFpEF, Prader-Willi, and intellectual disability who presented to [facility] ED on 05/12/24 after having increased shortness [...] been previously intubated. She was transferred to [facility] for ongoing care. She typically receives [...] Nursing Notes. Critical Care services I provided [id number] 35 minutes. The time involved in the [...] MORENA FELIPE MD on 05/19/2024 10:40 AM [facility] [id number] Heart failure Consult note Date of Service 05/18/2024 Reason for Consultation Pulmonary hypertension History of Present Illness 43-year-old female past medical history HFpEF, Prader-Willi/intellectual disability presented to [place] ED 05/12/2024 with increased shortness of breath. Became unresponsive with agonal or absent breathing. Initial rhythm was PEA and 2 rounds of CPR completed prior to ROSC without any medication. Emergently intubated, noted to be difficult intubation due to anterior airway and body habitus. Became hypoxic resolved with DuoNebs. Transferred to [facility]. Of note, discharged from [place] [...] BLANCO BRAGA PA-C on 05/18/2024 04:42 PM [facility] [id number] Heart failure Consult note Date of Service 05/18/2024 Reason for Consultation Pulmonary hypertension History of Present Illness 43-year-old female past medical history HFpEF, Prader-Willi/intellectual disability presented to [place] ED 05/12/2024 with increased shortness of breath. Became unresponsive with agonal or absent breathing. Initial rhythm was PEA and 2 rounds of CPR completed prior to ROSC without any medication. Emergently intubated, noted to be difficult intubation due to anterior airway and body habitus. Became hypoxic resolved with DuoNebs. Transferred to [facility]. Of note, discharged from [place] [...] BLANCO BRAGA PA-C on 05/18/2024 04:42 PM [facility] [id number] Note. MICRO - Microbiology PROCEDURE: Blood Culture [...] Locations *1: This test was performed at: [address], [address] [place], [place] 3807603-11-2025 Note. MICRO - Microbiology PROCEDURE: Blood Culture [...] Locations *1: This test was performed at: [address], [address] [place], [place] [address]-11-2025 Urology Consult note Date of Service 05/18/2024 [...] will ask for the assistance of the automation qa tester doctor Problem List/Past Medical History Historical CHF [...] by RANI MALHOTRA on 05/18/2024 12:45 PM [facility] [id number] Heart failure Consult note Date of Service 05/18/2024 Reason for Consultation Pulmonary hypertension History of Present Illness 43-year-old female past medical history HFpEF, Prader-Willi/intellectual disability presented to [place] ED 05/12/2024 with increased shortness of breath. Became unresponsive with agonal or absent breathing. Initial rhythm was PEA and 2 rounds of CPR completed prior to ROSC without any medication. Emergently intubated, noted to be difficult intubation due to anterior airway and body habitus. Became hypoxic resolved with DuoNebs. Transferred to [facility]. Of note, discharged from [place] [...] BLANCO BRAGA PA-C on 05/18/2024 04:42 PM [facility] [id number] Critical care medicine Consult note [facility] Cardiac Critical Cardiac Consultation Note Date: 05/18/2024 04:27:07 Patient Name: SIA ABDUL : 1980 ICU Admit Date: 05/18/2024 Intubation Date: N/A Reason for Consult: Critical Care and Bipap Management HPI: Sia Abdul is a 43 year old female with PMH of HFpEF, Prader-Willi, and intellectual disability who presented to [facility] ED on 05/12/24 after having increased shortness [...] been previously intubated. She was transferred to [facility] for ongoing care. She typically has [...] Azithromycin. SW consult for placement. Updated mother Tnoa prior and after procedures. Goals/Disposition: ICU Best [...] Nursing Notes. Critical Care services I provided [id number] 65 minutes. The time involved in the [...] MORENA FELIPE MD on 05/18/2024 05:17 AM [facility] [id number] Note* Exam Date Time Procedure Performing Provider Status 05/18/24 4:55 AM XR Chest 1 View QUAN JEONG MD; Auth (Verified) [id number] ORIGINAL EXAMINATION: ONE XRAY VIEW OF THE [...] 05/18/2024 5:28:56 AM Ordering Provider: SALMA GARCÍA [facility] [id number] Critical care medicine procedure note [facility] Cardiac Critical Care 05/18/2024 04:23:19 Procedure: Central Venous Catheter Placement Indication: Volume Overload Consent: Patient Timeout performed. Correct patient. Correct procedure. Correct site. Availability of necessary equipment. See nurse documentation for participants. Site: NewRightInternal jugular Catheter: Triple lumen Ultrasound guidance throughout procedure (vessel identification, needle puncture, guidewire, confirmed catheter in vessel): US identified vessel Technique: Cash Accounting Clerk Preparation: Mask, Cap, Handwashing, Sterile gown and sterile gloves. Site Preparation: Chlorhexidine, Full sterile drape. Modified Seldinger technique Micropuncture: Yes Introducing wire visualized in vessel by ultrasound: Yes Venous Manometry: No Biopatch: Yes Clear dressing per protocol. CXR: Pending Complications: None immediately observed. Patient tolerated the procedure well. Attestation:I performed entire procedure. Morena Felipe MD [facility] Cardiac Critical Care CPT: 49925 (Non-tunneled centrally inserted central venous catheter) CPT: 92943 (Ultrasound-guided venous access) Digitally Signed by MORENA FELIPE MD on 05/18/2024 04:26 AM [facility] [id number] Critical care medicine procedure note [facility] Cardiac Critical Care Procedure Note 05/18/2024 04:20:37 Procedure: Arterial Cannula Placement Indication: Acute Respiratory Failure Consent: Patient Timeout performed. Correct patient. Correct procedure. Correct site. Availability of necessary equipment. See nurse documentation for participants. Technique: Cash Accounting Clerk Preparation: Mask, Cap, Handwashing, Sterile gown and [...] entire procedure. Morena Felipe MD [facility] Cardiac Critical Care CPT: 47359 Digitally Signed by MORENA FELIPE MD on 05/18/2024 04:22 AM [facility] [id number] Note* Exam Date Time Procedure Performing Provider Status 05/17/24 9:22 AM XR Chest 2 Views LORI WESLEY DO; Auth (Verified) [id number] ORIGINAL EXAMINATION: TWO XRAY VIEWS OF THE [...] 05/17/2024 11:01:28 AM Ordering Provider: ANSELMO FALK [facility] [id number] Cardiology Consult note Date of Service 05/15/2024 [...] ANSELMO FALK MD on 05/15/2024 04:26 PM [facility] [id number] Note* Exam Date Time Procedure Performing Provider Status 05/15/24 7:34 AM XR Chest 1 View QUAN JEONG MD; [facility] (Verified) [id number] ORIGINAL EXAMINATION: ONE XRAY VIEW OF THE [...] 05/15/2024 7:47:12 AM Ordering Provider: ANNETTE PHILLIPS [facility] CenterTuxokrmm23-89-2439 Note* Exam Date Time Procedure Performing Provider Status 05/14/24 9:03 PM XR Chest 1 View KODY MARINELLI DO; Aut (Verified) [id number] ORIGINAL EXAMINATION: ONE XRAY VIEW OF THE [...] 05/14/2024 10:08:55 PM Ordering Provider: SONU CONLEY [facility] [id number] Note* Exam Date Time Procedure Performing Provider Status 05/14/24 2:36 PM Echocardiogram, Adult - CV Gifty SHORT MD; Auth (Verified) [facility] [id number] Note* Exam Date Time Procedure Performing Provider Status 05/14/24 7:15 AM XR Ankle Minimum 3 Views Right QUAN JEONG MD; Auth (Verified) [id number] ORIGINAL EXAMINATION: THREE XRAY VIEWS OF THE [...] 05/14/2024 7:26:40 AM Ordering Provider: ANNETTE PHILLIPS [facility] CenterYamklkwd21-82-2639 Note* Exam Date Time Procedure Performing Provider Status 05/14/24 6:46 AM XR Chest 1 View QUAN JEONG MD; A [facility] (Verified) [id number] ORIGINAL EXAMINATION: ONE XRAY VIEW OF THE [...] Quan Jeong MD Electronically signed By Quan eJong MD Dictated Date: 05/14/2024 7:00:09 AM Prelim Date: 05/14/2024 7:01:16 AM Sign Date: 05/14/2024 7:01:16 AM Ordering Provider: ANNETTE PHILLIPS [facility] CenterMruxaqyk65-37-8151 Note. MICRO - Microbiology PROCEDURE: Blood Culture [...] Locations *1: This test was performed at: [facility], [address] [place] [address], [address] [place], [place] [address]-06-2025 Note. MICRO - Microbiology PROCEDURE: Blood Culture [...] Locations *1: This test was performed at: [facility], [address] [place] [address], [id number]- , [facility]03-06-2025 History and physical note Date of Service 05/13/2024 History of Present Illness 43-year-old female with significant past medical history of Prader-Willi and CHF transferred from [facility] after intubation and mechanical ventilation due to AMS. Patient was brought to the hospital via personal vehicle from shelter due to altered mentation. On arrival to [place] emergency room patient was unresponsive, demonstrating difficulty [...] to heart failure exacerbation. Patient established with tutorial laboratory supervisor Dr. Isi France. Review of Systems Patient [...] ARIEL GUERRERO MD on 05/13/2024 03:43 AM [facility] [id number] Evaluation + Plan noteExtracted from: Title:History and [...] Prader-Willi syndrome, who is a resident at [facility]. The patient apparently appeared altered on the [...] the [facility]. Prognosis is guarded Critical care time 35 minutes Franklyn Stapleton MD [facility] Future Appointments Appointment Date:06/04/2024 01:45:00 PM Scheduled Provider:MARCELINO FALK Location:[facility] Appointment Type:[facility] Hospital Follow Up Appointment Date:06/22/2024 10:30:00 AM Scheduled [facility] Type:CV [facility] CHF Diagnostic Tests Pending * Culture Respiratory with Gram Stain 05/20/24 [facility] 03-06-2025 History and physical note Date of Service 05/13/2024 History of Present Illness 43-year-old female with significant past medical history of Prader-Willi and CHF transferred from [facility] after intubation and mechanical ventilation due to AMS. Patient was brought to the hospital via personal vehicle from shelter due to altered mentation. On arrival to [place] emergency room patient was unresponsive, demonstrating difficulty [...] to heart failure exacerbation. Patient established with tutorial laboratory supervisor Dr. Isi France. Review of Systems Patient [...] ARIEL GUERRERO MD on 05/13/2024 03:43 AM [facility] [id number] HCoV 229E RNA DOV+non-probe Ql (Nph)Not Detected *NA* (05/13/24 2:44 AM)[facility] Auto Viro/Sero [id number] NoteHNO ID: [id number] Author: MIKA KAPLAN APRN.CATERERS HELPER Service: ? Author Type: Nurse Practitioner Type: Progress Notes Filed: 05/10/2024 16:39 Note Text: sertralCC: Patient presents with: Recheck: ER follow up, cellulitis HPI Sia Abdul is a 43 year old female who presents today for recent Hospital stay for cellulitis and anxiety Was at [facility] on 04/28-05/02 for exacerbation of CHF and is following with Dr. 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 Is on torsemide for this and another [...] with anxious feelings. Is having trouble sleeping. [employer] bought her intermediate last year and made changes which have not made her very trusting of them. Patient very negative with description of her current caretakers of her intermediate. Feels they do not feel her well [...] Take 1 tablet by mouth once daily. Nvcua-1-FZD-EPA-Fish Oil 1,000 mg (120 mg-180 mg) cap [...] DAILY) albuterol HFA (VENTOL (more content not included)...[facility] 05-10-2024 History of Present illness Narrative* Mika Kaplan APRN.[facility] - 05/10/2024 2:05 PM EST sertralCC: Patient presents with: Recheck: ER follow up, cellulitis HPI Sia Abdul is a 43 year old female who presents today for recent Hospital stay for cellulitis and anxiety Was at [facility] on 04/28-05/02 for exacerbation of CHF and is following with Dr. Maxine Bartlett for this who is her tutorial laboratory supervisor. Is on torsemide for this and another [...] with anxious feelings. Is having trouble sleeping. [employer] bought her intermediate last year and made changes which have not made her very trusting of them. Patient very negative with description of her current caretakers of her intermediate. Feels they do not feel her well [...] obesity (HCC) Non-STEMI (non-ST elevated myocardial infarction) ([facility]) 02/24/2024 Other diseases of lung, not elsewhere [...] Take 1 tablet by mouth once daily. Akfyd-9-WOE-EPA-Fish Oil 1,000 mg (120 mg-180 mg) cap [...] is where previous blister was located. Leg lead mason tender and slightly warmer to the touch. [...] Screening Completed DATA REVIEWED: Outside chart from [facility] reviewed. ASSESSMENT/PLAN: 1. Cellulitis of left lower [...] - Instructed patient to contact office or hkhqi-dz-ntxt after-hours promptly should condition worsen or any new symptoms appear. - Counseling Center [facility] and after hours crisis line [...] plan. Mika Kaplan APRN.CNP documented in this encounterAv[facility] Hospital Discharge instructions Patient Education 05/08/2024 12:30:12 [...] or higher after 2 days on antibiotics [id number] [employer]. [address] [place] [address]. All rights reserved. This information is not intended as a substitute for professional medical care. Always follow yourhealthcare professional's instructions. Follow Up Care 05/08/2024 11:00:30 With:MARILEE THAKUR Address: [address] [place] [address] [employer] (1) When:2-4 days Comments:Schedule appointment for close follow-up.Use Tylenol or Advil for pain and fever as needed.Use antibiotic (cephalexin) as prescribed to treat cellulitis (skin infection).Return to the ED if symptoms worsen. [facility] 03-01-2025 Emergency department Discharge summary Discharge Instructions Thank you for allowing [facility] to assist you with your healthcare needs. The following is importantdischarge information regarding your hospital visit. What to Do Next Instructions from Your Care Team No qualifying data available. Post Acute Orders No qualifying data available. You Need to Schedule the Following Appointments Follow Up with MARILEE THAKUR When:Within 2-4 days Where:[address] [place] [id number] [employer] (1) Additional Information: Schedule appointment for close [...] may report side effects to FDA at 2-660-ZOZ-1249. What other drugs will affect cephalexin? Tell your doctor about all your other medicines, especially: metformin; or probenecid. This list is not complete. Other drugs may affect cephalexin, including prescription and odyb-ivi-ubxhmpf medicines, vitamins, and herbal products. Not all [...] to ensure that the information provided by [employer]. ('[employer]') is accurate, up-to-date, and complete, but no guarantee is made to that effect. Drug information contained herein may be time sensitive. [employer] information has been compiled for use by healthcare practitioners and consumers in the [place] and therefore [employer] does not warrant that uses outside of the [place] are appropriate, unless specifically indicated otherwise. [employer] drug information does not endorse drugs, diagnose patients or recommend therapy. [employer] drug information isan informational resource designed to [...] effective or appropriate for any given patient. [employer] does not assume any responsibility for any aspect of healthcare administered with the aid of information [employer] provides. The information contained herein is not intended to cover all possible uses, directions, precautions, warnings, drug interactions, allergic reactions, or adverse effects. If you have questions about the drugs you are taking, check with your doctor, nurse or pharmacist. Copyright 5809-1136 [employer]. Version: .. Revision Date: 10/09/2022. Education Materials [...] or higher after 2 days on antibiotics 2122-[address] [employer] [place] [address]. All rights reserved. This information is not intended as a substitute for professional medical care. Always follow yourhealthcare professional's instructions. Additional Information VACCINATE! IT SAVES LIVES! Members of the community who have not yet received the COVID-19 vaccine and would like to receive it can visit one of [facility] vaccine clinics. There are many vaccine clinic locations within the [facility]. For locations and available times, please visit www.gettheshot.coronavirus.[place].gov/. It is important to note that some COVID mobile vaccine clinics are held outdoors and may be canceled in rainy or stormy conditions. To learn more about pediatric vaccinations (ages 5-11), we invite you to visit the [facility] webpage. https://www.[email or web address].org/pages/[email or web address]-Ckkzt-Yadbxtgqzqa-Hhnywmyvba-Ykuib-Woo stions.htmlTo learn more about the COVID-19 vaccine, we invite you to visit the CDC website for a list of frequently asked questions. https://www.cdc.gov/coronavirus/2019-ncov/vaccines/faq.html [facility] Patient Portal Access Instructions: Stay connected with your healthcare team and access your personal medical information anytime with the [facility] Patient Portal. If you would like a full copy of your medical records please contact the [facility] Medical Records Department Friday through Friday between 8a.m. and 4:30p.m. Please follow the directions below to access the portal: 1.Access the email account you provided upon registration to the [facility].2.Look for an invitation email from [facility].3.Open the email and access the invitation link: Accept Invitation to [facility]4.Fill in the required perez to create your account. Sign into www.[employer] with your username and password that you [...] you will allow to register on the [facility] Patient Portal for access to your information. You can also access the [facility] Patient Portal on the [employer]. Simply click on Health Records under HealthData and then click on the citysocializer logo. HOW TO SAFELY DISPOSE OF PRESCRIPTION [...] Call your local pharmacy or go to http://bit.Domo Safety/9V0Nw1s to find one close to you.3.Make use of household items: Use cat litter or old coffee grounds to dispose medications if other options arenot available. Mix your drugs with these household products, seal them in an airtight container andthrow it into the garbage. Call [facility]: [phone] to be sure your drugs can be [...] aware that I should contact my doctor. Patient/Children'S Tutor Signature: Date/Time: Relationship to Patient: Witness Name/Signature: Date/Time: [facility]02-27-2025 Telephone encounter Note* Telephone Encounter - María Avila MA - 05/06/2024 8:18 AM EST Leia notified. [facility]02-27-2025 Miscellaneous Notes* Telephone Encounter - María Avila MA - 05/06/2024 8:18 AM EST Leia notified. * Telephone Encounter - Mika Kaplan APRN.CNP - 05/06/2024 8:06 AM EST Agree with order for PT. Thank you Mika Kaplan APRN.CNP * Telephone Encounter - Candelaria Ball LPN - 05/05/2024 3:29 PM EST Leia from [facility] calling asking for a new verbal order for PT plan of care 2 visits weekly for 4 weeks, please. Please advise documented in this encounterAv[facility] Telephone encounter Note * Telephone Encounter - Mika Kaplan APRN.CNP - 05/06/2024 8:06 AM EST Agree with order for PT. Thank you Mika Kaplan APRN.CNP [facility]02-26-2025 Telephone encounter Note* Telephone Encounter - Candelaria Ball LPN - 05/05/2024 3:29 PM EST Leia from [facility] calling asking for a new verbal order for PT plan of care 2 visits weekly for 4 weeks, please. Please advise [facility]02-25-2025 History of Present illness Narrative* Isi Goodman [...] pulmonary embolism. Patient was referred by her hospital scientist to establish care with general cardiology. Patient [...] torsemide on 01/27/2024. AT time patient wasin intermediate and torsemide accidentally not initiated. Patient's mother [...] ADVANCE*, Disp: , Rfl: fish oil concentrate (Baring-3) 120-180 mg capsule, Take 1 capsule (1 [...] months Isi Goodman MD [facility] Work Phone: 1(777) 613-982402-25-2025 Instructions* Patient Instructions* Isi Goodman MD - 05/04/2024 11:45 AM EST We are adding metolazone 5 mg once a week; continue torsemide 40 mg twice a day (morning / afternoon). We will see you back in heart clinic in ~ 6 weeks. Thank you for your visit today. Please contact our office (via itembasehart or phone) with any additional questions. [facility] [place] Corinne, RODRÍGUEZ/Clinic Nurse for: Dr. Maxine Nicolas [address], [address] [place] [address] Press Option 5 then Option 3 to speak with the Clinic Nurse (Corinne) To Reach: Billing Questions - [phone] Scheduling / Rescheduling - Option 1 Refills / Medication Requests - Option 3 General Office / Wood Cut Engraver - Option 4 Results - Option 6 Medical Records - Option 7 Repeat Options - Option 9 documented in this encounterOhio [facility] Work Phone: 1(669) 296-988802-24-2025 History of Present illness Narrative* Keely Ordonez MD - 05/03/2024 3:00 PM EST 44 F PMH: DACIA, hypothryroidism, right sided heart failure Coming in today for Prader Leandro evaluation, referred by genetics related to weight gain History provided by mom, patient, records She currently resides in a intermediate with a visiting nurse 1) Weight Multiple [...] Genetics Endocrine History: Hypogonadotropic hypogonadism On OCP-by WEIGHT LOSS SALES CONSULTANT Started in her 20s Currently on norethindrone [...] Insecurity: No Food Insecurity (01/06/2024) Received from [facility] Hunger Vital Sign Worried About Running Out of Food in the Last Year: Never true Ran Out of Food in the Last Year: Never true Transportation Needs: No Transportation Needs (01/06/2024) Received from [facility] PRAPARE - Transportation Lack of Transportation (Medical): [...] this time -metabolic screening Currently resides in intermediate Cont person: [facility] Charge Attendant-Shaunna Moise [phone] Next of Kin: mother Follow up next available documented in this [facility] Work Phone: 1(376) 448-232102-24-2025 Instructions* Patient Instructions* Keely Ordonez MD - 05/03/2024 3:00 PM EST Get your labs done in the morning around 8-9am, fasting from midnight Zepbound- we will send through pharmacy home delivery 2.5mg weekly for 4 weeks then increase to 5mg weekly Follow up next available Keely Ordonez MD Divison of Endocrinology [facility] option 4, then option 1 documented in this encounterOhio [facility] Hospital Work Phone: 1(397) 375-911602-23-2025 [facility]02-21-[facility]25 Telephone encounter Note* Telephone Encounter - Rafia Dennis MA - 04/30/2024 8:59 AM EST See other TE 04/29-direct care provider notified PCP office patient has been admitted to Hospital. Will close TE at this time. Rafia Dennis MA [facility]02-21-2025 Miscellaneous Notes* Telephone Encounter - Rafia Dennis [...] RN - 04/27/2024 3:09 PM EST Enrique- [facility]- called to give pcp update [...] if it had fluid in it. The custodial called EMS today, they got 96% POX with patient on 4LO2, but because patient was acting off and confused EMS wanted to take patient to ER but patient refused. 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 documented in this encounterAvita [facility] Telephone encounter Note * Telephone Encounter - Marilee Thakur MD - 04/29/2024 4:29 PM EST Noted. [facility]02-20-2025 Miscellaneous Notes* Telephone Encounter - Marilee Thakur MD - 04/29/2024 4:29 PM EST Noted. * Telephone Encounter - Pepper Walsh RN - 04/29/2024 12:18 PM EST Clarence with N ([facility]) calling to update provider that [...] 's mom, patient has been admitted to [facility]. Pepper Walsh RN documented in this encounterAvita Health [facility] Telephone encounter Note * Telephone Encounter - Pepper Walsh RN - 04/29/2024 12:18 PM EST Clarence with N ([facility]) calling to update provider that [...] 's mom, patient has been admitted to [facility]. Pepper Walsh, RN [facility]02-18-2025 Telephone encounter Note* Telephone Encounter - Marilee Thakur MD - 04/27/2024 5:24 PM EST She needs to go to the ER. Regards, Marilee Thakur MD [facility]02-18-2025 Telephone encounter Note* Telephone Encounter - Rah Turner RN - 04/27/2024 3:09 PM EST Enrique- [facility]- called to give pcp update [...] if it had fluid in it. The custodial called EMS today, they got 96% POX with patient on 4LO2, but because patient was acting off and confused EMS wanted to take patient to ER but patient refused. 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 [facility]02-17-2025 Telephone encounter Note* Telephone Encounter - María Avila MA - 04/26/2024 12:43 PM EST Shobha, senior brand manager notified. Please assist in scheduling repeat CT. [facility]02-17-2025 Miscellaneous Notes* Telephone Encounter - María Avila MA - 04/26/2024 12:43 PM EST Shobha, senior brand manager notified. Please assist in scheduling repeat CT. * Telephone Encounter - Mika Kaplan APRN.CNP - 04/21/2024 2:28 PM EST Unsure on what the spots/lumps to abdomen are. Will repeat Ultrasound in 4-6 weeks to revaluate this. Thank you Mika Kaplan APRN.CNP documented in this encounterAvita Health [facility] Telephone encounter Note * Telephone Encounter - Mika Kaplan APRN.CNP - 04/21/2024 2:28 PM EST Unsure on what the spots/lumps to abdomen are. Will repeat Ultrasound in 4-6 weeks to revaluate this. Thank you Mika Kaplan APRN.CNP [facility]02-05-2025 History of Present illness Narrative* Pily Lynch [...] PATIENT PRESENTS WITH AN IMPLANTABLE OR ATTACHED SUPERVISOR RECORDS CHANGE: No RADIOLOGY DEPARTMENT: Ultrasound PERIPHERAL IV DATA: Not applicable SIGNED BY: Pily Lynch RDMS [facility] April 14, 2024 2:54 PM documented in this encounterAvita Health System [facility]02-05-2025 NoteHNO ID: [id number] Author: PILY LYNCH RDMS Service: ? Author Type: Crinkling Machine Operator Type: Progress Notes Filed: 04/14/2024 14:54 Note [...] PATIENT PRESENTS WITH AN IMPLANTABLE OR ATTACHED SUPERVISOR RECORDS CHANGE: No RADIOLOGY DEPARTMENT: Ultrasound PERIPHERAL IV DATA: Not applicable SIGNED BY: Pily Lynch RDMS RVT April 14, 2024 2:54 [facility]02-03-2025 Telephone encounter Note* Telephone Encounter - Marilee Thakur MD - 04/12/2024 5:32 PM EST Noted [facility]02-03-2025 Miscellaneous Notes* Telephone Encounter - Marilee Thakur MD - 04/12/2024 5:32 PM EST Noted * Telephone Encounter - Rah Turner RN - 04/12/2024 12:46 PM EST [place] asking pcp to discontinue the Dulera since it is no longer covered by insurance and the Breo Ellipta was sent in it's place since insurance does cover Breo. [facility] is going to go ahead and discontinue the dulera on their end. documented in this encounterAvita Health [facility]02-[facility] Telephone encounter Note * Telephone Encounter - Rah Turner RN - 04/12/2024 12:46 PM EST [place] asking pcp to discontinue the Dulera since it is no longer covered by insurance and the Breo Ellipta was sent in it's place since insurance does cover Breo. [facility] is going to go ahead and discontinue the dulera on their end. [facility]02-03-2025 Telephone encounter Note* Telephone Encounter - Morena Kearney MA - 04/12/2024 11:55 AM EST PA for Breo is approved Authorization number: [id number] Authorized from April 12, 2024 to April 11, 2025 Morena Kearney MA [facility]02-03-2025 Miscellaneous Notes* Telephone Encounter - Morena Kearney MA - 04/12/2024 11:55 AM EST PA for Breo is approved Authorization number: [id number] Authorized from April 12, 2024 to April [...] inhaler Morena Kearney MA documented in this encounterAvita Health [facility]01-31-2025 Telephone encounter Note * Telephone Encounter - Marilee Thakur MD - 04/09/2024 5:14 PM EST Well I ordered the breo and it still says that prior auth is needed. Regards, Marilee Thakur MD [facility]01-31-2025 Telephone encounter Note* Telephone Encounter - Morena Kearney MA - 04/09/2024 1:35 PM EST Insurance mailed letter stating Dulera is no longer on formulary. Formulary covered alternatives are -Breo Ellipta -Breyna -Advair HFA Please choose alternative and send. Patient caregiver is aware alternative will be sent. Please have staff fax phone note to number below showing new inhaler Morena Kearney MA [facility]01-31-2025 Telephone encounter Note* Telephone Encounter - Teresa Ferrera RN - 04/09/2024 12:56 PM EST Shobha Dallas with [facility] called and is notified of providers message and instructions. She voices understanding. She asked if we could fax the new prescription to the nurse Rafia at fax # [phone]. Rx faxed. Teresa Ferrera RN [facility]01-31-2025 Miscellaneous Notes* Telephone Encounter - Teresa Ferrera RN - 04/09/2024 12:56 PM EST Shobha Dallas with [facility] called and is notified of providers message and instructions. She voices understanding. She asked if we could fax the new prescription to the nurse Rafia at fax # [phone]. Rx faxed. Teresa Ferrera RN * Telephone [...] Clarence asking, please send demadex order to [facility] pharmacy with new directions. Dosage change Thank you. Lacie Reyes LPN * Telephone Encounter - Marilee Thakur MD - 04/07/2024 1:04 PM EST Ok I see that he is taking the demadex, so should continue it , could take an extra if needed Marilee Lassiter MD * Telephone Encounter - Eulalia Laureano RN - 04/06/2024 10:59 AM EST Enrique Mckenna with [facility] calls with update. Enrique reports [...] which isn't typical for patient. Enrique contacting tutorial laboratory supervisor as well. Eulalia Laureano, RODRÍGUEZ documented in this encounterAvita Health System [facility]01-31-2025 Telephone encounter Note * Telephone Encounter - Marilee Thakur MD - 04/09/2024 12:23 PM EST More demadex was sent to the pharmacy. Marilee Lassiter MD [facility]01-30-2025 Telephone encounter Note* Telephone Encounter - Eric LacieJORDAN - 04/08/2024 4:26 PM EST When I spoke to nurse Clarence stated she is taking 40mg 2 times a day currently. Lacie EricJORDAN April 08, 2024 4:26 PM [facility]01-30-2025 Telephone encounter Note* Telephone Encounter - María Avila MA - 04/08/2024 2:40 PM EST Leia notified. [facility]01-30-2025 Miscellaneous Notes* Telephone Encounter - María Avila MA - 04/08/2024 2:40 PM EST Leia notified. * Telephone Encounter - Marilee Thakur MD - 04/08/2024 1:54 PM EST Verbal ok for the same Regards, Marilee Thakur MD * Telephone Encounter - Pamela Singh LPN - 04/08/2024 1:47 PM EST Leia with [facility], PT called to let you know they need to re- cert pt for 04/13/24 and would like to see pt 2 times week for 4 weeks. dx Prader Willi Syndrome and Acute chronic diastolic congestive heart failure. Please call Leia back with verbal order. Okay to leave a detailed message. Pamela Singh LPN documented in this encounterAvita Health System [facility]01-30-2025 Telephone encounter Note * Telephone Encounter - Marilee Thakur MD - 04/08/2024 1:54 PM EST Verbal ok for the same Regards, Marilee Thakur MD [facility]01-30-2025 Telephone encounter Note* Telephone Encounter - Marilee Thakur MD - 04/08/2024 1:47 PM EST Can you confirm how much of demadex she is taking right now? Regards, Marilee Thakur MD [facility]01-30-2025 Telephone encounter Note* Telephone Encounter - Pamela Singh LPN - 04/08/2024 1:47 PM EST Leia with [facility], PT called to let you know they need to re- cert pt for 04/13/24 and would like to see pt 2 times week for 4 weeks. dx Prader Willi Syndrome and Acute chronic diastolic congestive heart failure. Please call Leia back with verbal order. Okay to leave a detailed message. Pamela Singh LPN [facility]01-30-2025 Telephone encounter Note* Telephone Encounter - Lacie Reyes LPN - 04/08/2024 9:29 AM EST Called and spoke to Clarence the nurse caring for patient, Clarence asking, please send demadex order to [facility] pharmacy with new directions. Dosage change Thank you. Lacie Reyes LPN [facility]01-29-2025 Telephone encounter Note* Telephone Encounter - Marilee Thakur MD - 04/07/2024 1:04 PM EST Ok I see that he is taking the demadex, so should continue it , could take an extra if needed Regards, Marilee Thakur MD [facility]01-28-2025 Telephone encounter Note* Telephone Encounter - Eulalia Laureano RN - 04/06/2024 10:59 AM EST Enrique Mckenna with [facility] calls with update. Enrique reports [...] which isn't typical for patient. Enrique contacting tutorial laboratory supervisor as well. Eulalia Laureano RN [facility]01-28-2025 NoteHNO ID: [id number] Author: HILDA JEONG, DO Service: ? Author Type: Physician Type: Progress Notes Filed: 04/06/2024 12:56 Note Text: [facility] [place] DEPARTMENT OF VASCULAR SURGERY OUTPATIENT VISIT DATE April 06, 2024 OUTPATIENT VISIT TYPE CONSULTATION SERVICE DATE: 04/06/2024 SERVICE TIME: 9:43 AM PRIMARY CARE PHYSICIAN: Marilee Thakur MD REFERRING PROVIDER: Marilee Thakur [address] [address] Consult requested for an opinion regarding the [...] obesity (HCC) Non-STEMI (non-ST elevated myocardial infarction) ([facility]) 02/24/2024 Other diseases of lung, not elsewhere [...] Take 1 tablet by mouth once daily. Itnox-9-ATC-EPA-Fish Oil 1,000 mg (120 mg-180 mg) cap [...] compression stockings. Dx: Recurren (more content not included)...[facility]01-28-2025 History of Present illness Narrative* Hilda Jeong, DO - 04/06/2024 9:43 AM EST Images from the original note were not included. [facility] [place] DEPARTMENT OF VASCULAR SURGERY OUTPATIENT VISIT DATE April 06, 2024 OUTPATIENT VISIT TYPE CONSULTATION SERVICE DATE: 04/06/2024 SERVICE TIME: 9:43 AM PRIMARY CARE PHYSICIAN: Marilee Thakur MD REFERRING PROVIDER: Marilee Thakur [address] [address] Consult requested for an opinion regarding the [...] Take 1 tablet by mouth once daily. Odbpz-1-FZP-EPA-Fish Oil 1,000 mg (120 mg-180 mg) cap [...] lesions, rash, and itching. PHYSICAL EXAM: VITALS: [facility] 05/13/2007 General: Alert, oriented, cooperative, healthy [...] 2024 TIME: 9:43 AM documented in this encounterAvita Health [facility]01-[facility]25 Telephone encounter Note * Telephone Encounter - Candelaria Ball LPN - 04/02/2024 9:37 AM EST Phoned Clarence and went over notes below from Mika Kaplan SESSIONS CLERK with understanding. [facility]01-24-2025 Miscellaneous Notes* Telephone Encounter - Candelaria Ball LPN - 04/02/2024 9:37 AM EST Phoned Clarence and went over notes below from Mika Kaplan SESSIONS CLERK with understanding. * Telephone Encounter - Mika Kaplan APRN.CNP - 04/02/2024 9:12 AM EST Agree with need for these services and agree to follow Mika Kaplan APRN.CNP * Telephone Encounter - Pepper Walsh RN - 04/02/2024 8:26 AM EST Clarence, a nurse with [facility] is calling to ask if provider will approve re certification for intermediate, PT and OT services for patient. Clarence would like a call back with provider's approval, . Pepper Walsh RN documented in this encounterAvita Health System [facility]01-[facility]-2025 Telephone encounter Note * Telephone Encounter - Mika Kaplan APRN.CNP - 04/02/2024 9:12 AM EST Agree with need for these services and agree to follow Mika Kaplan APRN.CNP [facility]01-24-2025 Telephone encounter Note* Telephone Encounter - Pepper Walsh RN - 04/02/2024 8:26 AM EST Clarence, a nurse with [facility] is calling to ask if provider will approve re certification for intermediate, PT and OT services for patient. Clarence would like a call back with provider's approval, . Pepper Wurst, RN [facility]01-23-2025 NoteHNO ID: [id number] Author: MIKA KAPLAN APRN.CATERERS HELPER Service: ? Author Type: Nurse Practitioner Type: [...] Take 1 tablet by mouth once daily. Dcmlv-1-YVW-EPA-Fish Oil 1,000 mg (120 mg-180 mg) cap [...] 1 application t (more content not included)... [facility]01-23-2025 History of Present illness Narrative* Mika Kaplan APRN.CATERERS HELPER - 04/01/2024 11:00 AM EST CC: Patient [...] Take 1 tablet by mouth once daily. Iexyl-7-HKK-EPA-Fish Oil 1,000 mg (120 mg-180 mg) cap [...] no evaluated in this visit. Contact your operations manager/coordinator for further evaluation 7. Hematuria, unspecified type - ICD9: 599.70, ICD10: R31.9 See #3 - BACTERIAL CULTURE, URINE - URINALYSIS, WITH MICROSCOPIC Prescription instructions reviewed with patient as applicable. Potential red flag symptoms discussed with the patient. Reviewed appropriate action plan to take if red flag symptoms occur. Patient agreeable to treatment plan. Mika Kaplan APRN.CNP documented in this encounterAvita [facility] Telephone encounter Note * Telephone Encounter - Teresa Ferrera RN - 03/29/2024 4:11 PM EST [facility] called in and reports [facility] reached out to them with a referral. They states they have been trying to get a hold of the Pt, but haven't been able to. She states it says she lives a t a Nursing Home, but no the name of the intermediate. I have her the names and number we had to get in contact with the Pt. I told her we had Shobha Dalals [facility] a contact [facility] [phone], which was the same phone # we had for the Pts home and mobile phone. Then we had Anali Gibson as her resident care spec at [phone]. She states she had tried calling the Pts mother, but was not able to get a hold of her. She said she would try these numbers. [facility]01-20-2025 Miscellaneous Notes* Telephone Encounter - Teresa Ferrera RN - 03/29/2024 4:11 PM EST Yazan with [facility] called in and reports [facility] reached out to them with a referral. They states they have been trying to get a hold of the Pt, but haven't been able to. She states it says she lives a t a Nursing Home, but no the name of the intermediate. I have her the names and number we had to get in contact with the Pt. I told her we had Shobha Dallas as a contact at the group ome [phone], which was the same phone # we had for the Pts home and mobile phone. Then we had Anali Gibson as her resident care spec at [phone]. She states she had tried calling the Pts mother, but was not able to get a hold of her. She said she would try these numbers. documented in this encounterAvita [facility]01-15-2025 Telephone encounter Note * Telephone Encounter - Aaliyah Gonzalez MA - 03/24/2024 12:28 PM EST Faxed as requested. Aaliyah Gonzalez MA [facility]01-15-2025 Miscellaneous Notes* Telephone Encounter - Aaliyah Gonazlez MA - 03/24/2024 12:28 PM EST Faxed as requested. Aaliyah Gonzalez MA * Telephone Encounter - Pamela Singh LPN - 03/24/2024 11:38 AM EST Shobha with [facility] called to let you know af ax was sent approx around 11 am today 03-24-24. Inthis fax they are exact specific that need to be on Dr. Thakur last note and they need faxed back tothem as soon as possible. This is regarding Lymphedema Leg Compressions Pump. FAX: [phone] Pamela Singh LPN documented in this encounterAvita Health System [facility]01-15-2025 Telephone encounter Note * Telephone Encounter - Pamela Singh LPN - 03/24/2024 11:38 AM EST Shobha with [facility] called to let you know af ax was sent approx around 11 am today 03-24-24. Inthis fax they are exact specific that need to be on Dr. Thakur last note and they need faxed back tothem as soon as possible. This is regarding Lymphedema Leg Compressions Pump. FAX: [phone] Pamela Singh LPN [facility]01-14-2025 History of Present illness Narrative* Isi Goodman [...] pulmonary embolism. Patient was referred by her hospital scientist to establish care with general cardiology. Patient [...] torsemide on 01/27/2024. AT time patient wasin intermediate and torsemide accidentally not initiated. Patient's mother [...] , Rfl: ergocalciferol (Vitamin D-2) 1.25 MG (28651 UT) capsule, Take by mouth., Disp: , Rfl: fish oil concentrate (Baring-3) 120-180 mg capsule, Take 1 capsule (1 [...] torsemide on 01/27/2024. AT time patient wasin intermediate and torsemide accidentally not initiated. Patient's mother [...] months Isi Goodman MD documented in this [facility] Work Phone: 1(895) 529-845501-14-2025 Instructions* Patient Instructions* Isi Goodman MD - [...] visit today. Please contact our office (via itembasehart or phone) with any additional questions. [facility] [place] RODRÍGUEZ Sun/Clinic Nurse for: Dr. Maxine Nicolas [address], [address] [place] [address] Press Option 5 then Option 3 to speak with the Clinic Nurse (Corinne) To Reach: Billing Questions - [phone] Scheduling / Rescheduling - Option 1 Refills / Medication Requests - Option 3 General Office / [place] - Option 4 Results - Option 6 Medical Records - Option 7 Repeat Options - Option 9 [facility] Work Phone: [phone]) 356-158101-08-2025 Miscellaneous Notes* Telephone Encounter - María Avila MA - 03/17/2024 9:43 AM EST Clarence has not heard that medication was not received so he is assuming it arrived. * Telephone Encounter - Mika Kaplan APRN.CNP - 03/17/2024 7:20 AM EST Will address at upcoming appointment. Has patient received her lasix? Is she having any symptoms? Thank you Mika Kaplan APRN.CATERERS HELPER * Telephone Encounter - Lillie Marshall RN - 03/16/2024 9:37 AM EST Clarence from [facility] calls with a couple of [...] can start taking medication. Clarence also notified tutorial laboratory supervisor regarding weight gain. Patient has a vaginal [...] advise, Lillie Marshall RN documented in this encounterAvita Health System [facility]01-08-2025 Telephone encounter Note * Telephone Encounter - María Avila MA - 03/17/2024 9:43 AM EST Clarence has not heard that medication was not received so he is assuming it arrived. [facility]01-08-2025 Telephone encounter Note* Telephone Encounter - Mika Kaplan APRN.CNP - 03/17/2024 7:20 AM EST Will address at upcoming appointment. Has patient received her lasix? Is she having any symptoms? Thank you Mika Kaplan APRN.OBED [facility]01-07-2025 Telephone encounter Note* Telephone Encounter - Lillie Marshall RN - 03/16/2024 9:37 AM EST Clarence from [facility] calls with a couple of [...] can start taking medication. Clarence also notified tutorial laboratory supervisor regarding weight gain. Patient has a vaginal prolapse. This was noted last time patient was in hospital. Mother had reported that patient has had prolapse for awhile. Staff has noticed that when patient's wipes there is a little blood on the toilet paper. Clarence asking if this can be address at patient's appointment on 03/10. Please review and advise, Lillie Marshall RN [facility]01-03-2025 Telephone encounter Note* Telephone Encounter - Eulalia [...] needed at this time. Eulalia Laureano RN [facility]01-03-2025 Miscellaneous Notes* Telephone Encounter - Eulalia Laureano [...] time. Eulalia Laureano RN documented in this encounterAvita Health System [facility]01-03-2025 NoteHNO ID: [id number] Author: RAJESH CORONA MD Service: ? Author Type: Physician Type: Progress Notes Filed: 03/13/2024 23:03 Note Text: This note was created using RingTuriter. Subjective Patient presents with: Hospital F/U: [facility] 02/28/24 for pulmonary edema and severe pain [...] Take 1 tablet by mouth once daily. Ebukk-0-DVH-EPA-Fish Oil 1,000 mg (120 mg-180 mg) cap [...] by mouth once mallory (more content not included)...[facility]01-03-2025 History of Present illness Narrative* Corona, Toñito, MD - 03/12/2024 10:41 AM EST This note was created using RingTuriter. Subjective Patient presents with: Hospital F/U: [facility] 02/28/24 for pulmonary edema and severe pain [...] Take 1 tablet by mouth once daily. Tqpkj-2-MPT-EPA-Fish Oil 1,000 mg (120 mg-180 mg) cap [...] SUPPLY Rajesh Corona MD documented in this encounterAvita Health [facility]01-03-2025 Telephone encounter Note * Telephone Encounter - Pepper Walsh RN - 03/12/2024 8:16 AM EST Leia, Physical Therapist with [facility], notified. Pepper Walsh RN [facility]01-03-2025 Miscellaneous Notes* Telephone Encounter - Pepper Walsh RN - 03/12/2024 8:16 AM EST Leia, Physical Therapist with [facility], notified. Pepper Walsh RN * Telephone Encounter - Mika Kaplan APRN.CNP - 03/12/2024 8:11 AM EST Ok to continue in home physical therapy. Thank you Mika Kaplan APRN.CNP * Telephone Encounter - Pepper Walsh RN - 03/09/2024 11:23 AM EST Leia, Physical Therapist with [facility] calling and requesting verbal order to continue in-home Physical Therapy for patient. Please call Leia at [phone]. May leave detailed message on this secure VM. Pepper Walsh RN documented in this encounterAvita Health System [facility]01-03-2025 Telephone encounter Note * Telephone Encounter - Mika Kaplan APRN.CNP - 03/12/2024 8:11 AM EST Ok to continue in home physical therapy. Thank you Mika Kaplan APRN.CNP [facility]01-02-2025 Telephone encounter Note* Telephone Encounter - Teresa Ferrera RN - 03/11/2024 10:53 AM EST Shobha from [facility] called and is notified of providers message and instructions. She voices understanding and states Pt isn't SOB. Pt scheduled tomorrow with Dr Corona at 940 am. Teresa Ferrera RN [facility]01-02-2025 Miscellaneous Notes* Telephone Encounter - Teresa Ferrera RN - 03/11/2024 10:53 AM EST Shobha from [facility] called and is notified of providers message [...] - 03/11/2024 9:39 AM EST Shobha from [facility] calling patient said Bumex has been giving her a headache. She wastaken off the generic lasix and put on bumex 1 mg one tablet twice daily when she was in [facility]. She was discharged on 03/01/2024, patient has gained 13 pounds since that date. She has refused to take Bumex last night and this morning dose. Patient uses [facility] for her pharmacy. Asking if she can have medication discontinued and placed on something else? Her next appt is scheduled on 03/22/2024 with Mika Kaplan for a physical. Please advise documented in this encounterAvita Health System [facility]01-02-2025 Telephone encounter Note * Telephone Encounter - Sagar Stewart MD - 03/11/2024 9:47 AM EST Would recommend seeing a provider sooner since has gained weight off diuretic. If short of breath, to er [facility] Work Phone: [phone] Telephone encounter Note* Telephone Encounter - Candelaria Ball LPN - 03/11/2024 9:39 AM EST Shobha from [facility] calling patient said Bumex has been giving her a headache. She wastaken off the generic lasix and put on bumex 1 mg one tablet twice daily when she was in [facility]. She was discharged on 03/01/2024, patient has gained 13 pounds since that date. She has refused to take Bumex last night and this morning dose. Patient uses [facility] for her pharmacy. Asking if she can have medication discontinued and placed on something else? Her next appt is scheduled on 03/22/2024 with Mika Eusebio for a physical. Please advise [facility]12-31-2024 Telephone encounter Note* Telephone Encounter - Pepper Walsh RN - 03/09/2024 11:23 AM EST Leia, Physical Therapist with [facility] calling and requesting verbal order to continue in-home Physical Therapy for patient. Please call Leia at [phone]. May leave detailed message on this secure VM. Pepper Walsh RN [facility]12-31-2024 NotePatient Outreach (INTMMN) SIA ABDUL ([id number]) 1980 F Date Time Provider Department 03/09/24 MARILEE THAKUR During your visit today, we recorded the following information about you: Allergies As of Date: 03/09/2024 Noted Allergy Reaction BEE STING 02/28/2023 10 - Anaphylaxis DILANTIN (PHENYTOIN SODIUM EXTEND*01/28/2006 Date Reviewed: 02/16/2024 Reviewed by: Lacie Reyes LPN - Fully Assessed Visit Diagnosis:Acquired hypothyroidism [E03.9] Order(s):THYROID STIMULATING HORMONE [TS] Order #: [id number] FUTURE Prescriptions as of 03/12/2024 - midodrine [...] 1 tablet by mouth once daily. - Eepqz-1-USH-EPA-Fish Oil 1,000 mg (120 mg-180 mg) cap [...] [Z68.41] 12/14/2014 02/09/2015 BMI (more content not included)...[facility]12-23-2024 Note [facility]12-20-2024 NoteHNO ID: [id number] Author: BRADLEY FLORES RN Service: ? Author Type: Registered Nurse Type: Progress Notes Filed: 02/27/2024 10:22 Note Text: Transition Care Management (TCM) Initial Outreach PCP Update / Actionable Items N/A - No specialty updates needed Patient Source: Azn-gd-Oxepqvw (OON) Discharge Outreach Summary: Spoke with Shobha pt 's RN caregiver. States Jayshree had some applesauce last night and became very SOB overnight, returned to [place] ER and admitted. Shobha states attending to discuss hospice with pt 's family . Advised will send FYI to PCP. Patient discharged from [facility] Discharge date: 02/26/24 Admitted for: NSTEMI/ fluid overload Readmission Risk: n/a Value-Based Contract: ACO Contact: Contact made with patient: Yes Hi, my name is Bradley Flores RN and I am calling from the [facility] on behalf of your Primary Care Provider, Marilee Thakur MD. I understand you were recently in the hospital, so I am calling to check in with you to ensure you are feeling well now that you are home. May I ask you a few questions related to your hospital stay and well-being? Pt readmitted to [facility] last night. Bradley Flores RN February 27, 2024 10:19 [facility]12-20-2024 History of Present illness Narrative* Bradley Flores RN - 02/27/2024 10:06 AM EST Transition Care Management (TCM) Initial Outreach PCP Update / Actionable Items N/A - No specialty updates needed Patient Source: Qmj-ug-Jjmbwvt (OON) Discharge Outreach Summary: Spoke with Shobha pt 's RN caregiver. States Jayshree had some applesauce last night and became very SOB overnight, returned to [place] ER and admitted. Shobha states attending to discuss hospice with pt 's family . Advised will send FYI to PCP. Patient discharged from [facility] Discharge date: 02/26/24 Admitted for: NSTEMI/ fluid overload Readmission Risk: n/a Value-Based Contract: ACO Contact: Contact made with patient: Yes Hi, my name is Bradley Flores RN and I am calling from the [facility] on behalf of your Primary Care Provider, Marilee Thakur MD. I understand you were recently in the hospital, so I am calling to check in with you to ensure you are feeling well now that you are home. May I ask you a few questions related to your hospital stay and well-being? Pt readmitted to [facility] last night. Bradley Flores RN February 27, 2024 10:19 AM documented in this encounterAvita Health System [facility]12-20-2024 Note* Exam Date Time Procedure Performing Provider Status 02/27/24 2:52 AM XR Chest 1 View Auth (Ve rified) [id number] ORIGINAL EXAMINATION: ONE XRAY VIEW OF THE [...] 02/27/2024 3:05:24 AM Ordering Provider: JAMILA DARDEN [facility]12-20-2024 Note* Exam Date Time Procedure Performing Provider Status 02/27/24 2:19 AM EKG [ED AOH] - CV JAMILA DARDEN MD; Auth (Verified) ECG Final Report Sinus rhythm Probable left atrial enlargement LAD, consider left anterior fascicular block Abnrm T, probable ischemia, anterolateral lds Electronic Signature: JAMILA DARDEN MD 02/27/2024 02:23:31 [facility]12-20-2024 NotePatient Outreach (KIMCMG) SIA ABDUL ([id number]) 1980 F Date Time Provider Department 02/27/24 BRADLEY FLORES During your visit today, we recorded the following information about you: Bradley Flores RN 02/27/2024 10:22 AM Signed Transition Care Management (TCM) Initial Outreach PCP Update / Actionable Items N/A - No specialty updates needed Patient Source: Phs-iu-Cudfjzr (OON) Discharge Outreach Summary: Spoke with Shobha pt 's RN caregiver. States Jayshree had some applesauce last night and became very SOB overnight, returned to [place] ER and admitted. Shobha states attending to discuss hospice with pt 's family . Advised will send FYI to PCP. Patient discharged from [facility] Discharge date: 02/26/24 Admitted for: NSTEMI/ fluid overload Readmission Risk: n/a Value-Based Contract: ACO Contact: Contact made with patient: Yes Hi, my name is Bradley Flores RN and I am calling from the [facility] on behalf of your Primary Care Provider, Marilee Thakur MD. I understand you were recently in the hospital, so I am calling to check in with you to ensure you are feeling well now that you are home. May I ask you a few questions related to your hospital stay and well-being? Pt readmitted to [facility] last night. Bradley Flores RN February 27, [...] 1 tablet by mouth once daily. - Ykala-2-BZX-EPA-Fish Oil 1,000 mg (120 mg-180 mg) cap [...] 08/06/2005 12/13/2013 Other dy (more content not included)...[facility]12-19-2024 Note [facility]12-18-2024 [facility]12-17-2024 Telephone encounter Note* Telephone Encounter - Aaliyah Gonzalez MA - 02/24/2024 9:[address] Thakur informed verbally by this COMFORT. Aaliyah Gonzalez MA [facility]12-17-2024 Miscellaneous Notes* Telephone Encounter - Aaliyah Gonzalez MA - 02/24/2024 9:[address] Thakur informed verbally by this COMFORT. Aaliyah Gonzalez MA * Telephone Encounter - Lillie Marshall RN - 02/24/2024 8:16 AM EST Clarence from [facility] calls and reports that he [...] evaluated. Clarence agrees and voices understanding. 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 Lillie Marshall RN documented in this encounterAvita Health System [facility]12-17-2024 Telephone encounter Note * Telephone Encounter - Lillie Marshall RN - 02/24/2024 8:16 AM EST Clarence from [facility] calls and reports that he [...] evaluated. Clarence agrees and voices understanding. 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 Lillie Marshall RN [facility]12-16-2024 Telephone encounter Note* Telephone Encounter - María Avila MA - 02/23/2024 2:30 PM EST Leia notified. [facility]12-16-2024 Miscellaneous Notes* Telephone Encounter - María Avila MA - 02/23/2024 2:30 PM EST Leia notified. * Telephone Encounter - Mika Kaplan APRN.CNP - 02/23/2024 11:37 AM EST Ok with therapy order Thank you Mika Kaplan APRN.CNP * Telephone Encounter - Pamela Singh LPN - 02/23/2024 10:08 AM EST Leia with [facility], PT calling. Pt out of the hospital last week and is in need of PT in home. Did re-evaluation and asking for verbal orders to continue PT in home. DX acute, chronicsystolic heart failure and kidney injury. Please advise Leia with a verbal orders. Pamela Singh LPN documented in this encounterAvita Health System [facility]12-16-2024 Telephone encounter Note * Telephone Encounter - Mika Kaplan APRN.CNP - 02/23/2024 11:37 AM EST Ok with therapy order Thank you Mika Kaplan APRN.OBED [facility]12-16-2024 Telephone encounter Note* Telephone Encounter - Pamela Singh LPN - 02/23/2024 10:08 AM EST Leia with [facility], PT calling. Pt out of the hospital last week and is in need of PT in home. Did re-evaluation and asking for verbal orders to continue PT in home. DX acute, chronicsystolic heart failure and kidney injury. Please advise Leia with a verbal orders. Pamela Singh LPN [facility]12-13-2024 NoteHNO ID: [id number] Author: BRADLEY FLORES RN Service: ? Author Type: Registered Nurse Type: Progress Notes Filed: 02/20/2024 11:24 Note Text: Transition Care Management (TCM) Initial Outreach PCP Update / Actionable Items HRTIC TCM Home Visit Referral Source of Stratification: [facility] Hospital Admission Status: Discharged Readmission Risk Score: n/a Patient's zip code: [address] Is zip code within program service area: No Patient meets program referral criteria: No Patient does not qualify for High Risk TCM Home Visit program due to: Readmission Risk Score does not meet criteria Disposition: Patient does not qualify for HRTIC, will provide TCM outreach follow-up for 30-days Patient Source: Ykl-tg-Ckjefeg (OON) Discharge Outreach Summary: Spoke with adryan Yeager education and training manager with [facility]- States Jayshree 's leg swelling currently improved. Will check BP and weight daily. Weight yesterday prior to dc was 291 lbs, today is 287 lbs- States pt is not having any dizziness, SOB , lightheadedness today. Discussed compression leg pumps - currently not working and they are attempting to obtain new pumps with documentation needed for insurance reapproval. Patient discharged from [facility] Discharge date: 02/19/24 Admitted for: Hypotension Readmission Risk: n/a Value-Based Contract: ACO Contact: Contact made with patient: Yes Hi, my name is Bradley Flores RN and I am calling from the [facility] on behalf of your Primary Care Provider, Marilee Thakur MD. I understand you were recently in the hospital, so I am calling to check in with you to ensure you are feeling well now that you are home. May I ask you a few questions related to your hospital stay and well-being? Yes Spoke to: RODRÍGUEZ Yeager intermediate Validation: Validated the person spoken to is [...] , Also noted Midodrine was rx at [facility], added to med list. Lisinopril and [...] like to speak with a social work grocery team member to help give you support for any [...] I will send your request to a painting worker who will contact and assist you with [...] Bradley Flores RN February 20, 2024 11:05 [facility]12-13-2024 History of Present illness Narrative* Bradley Flores RN - 02/20/2024 10:58 AM EST Transition Care Management (TCM) Initial Outreach PCP Update / Actionable Items HRTIC TCM Home Visit Referral Source of Stratification: [facility] Hospital Admission Status: Discharged Readmission Risk Score: n/a Patient's zip code: [address] Is zip code within program service area: No Patient meets program referral criteria: No Patient does not qualify for High Risk TCM Home Visit program due to: Readmission Risk Score does not meet criteria Disposition: Patient does not qualify for HRTIC, will provide TCM outreach follow-up for 30-days Patient Source: Mzg-cm-Ivpqots (OON) Discharge Outreach Summary: Spoke with adryan Yeager education and training manager with [facility]- States Jayshree 's leg swelling currently improved. Will check BP and weight daily. Weight yesterday prior to dc was 291 lbs, today is 287 lbs- States pt is not having any dizziness, SOB , lightheadedness today. Discussed compression leg pumps - currently not working and they are attempting to obtain new pumpswith documentation needed for insurance reapproval. Patient discharged from [facility] Discharge date: 02/19/24 Admitted for: Hypotension Readmission Risk: n/a Value-Based Contract: ACO Contact: Contact made with patient: Yes Hi, my name is Bradley Flores RN and I am calling from the [facility] on behalf of your Primary Care Provider, Marilee Thakur MD. I understand you were recently in the hospital, so I am calling to check in with you to ensure you are feeling well now that you are home. May I ask you a few questions related to your hospital stay and well-being? Yes Spoke to: RODRÍGUEZ Yeager intermediate Validation: Validated the person spoken to is [...] , Also noted Midodrine was rx at [facility], added to med list. Lisinopril and [...] like to speak with a social work grocery team member to help give you support for any [...] I will send your request to a painting worker who will contact and assist you with [...] 20, 2024 11:05 AM documented in this encounterAvita [facility]24 NotePatient Outreach (KIMCMG) SIA ABDUL ([id number]) 1980 F Date Time Provider Department 02/20/24 BRADLEY FLORES During your visit today, we recorded the following information about you: Bradley Flores RN 02/20/2024 11:24 AM Signed Transition Care Management (TCM) Initial Outreach PCP Update / Actionable Items HRTIC TCM Home Visit Referral Source of Stratification: TCM [facility]UB Hospital Admission Status: Discharged Readmission Risk Score: n/a Patient's zip code: [address] Is zip code within program service area: No Patient meets program referral criteria: No Patient does not qualify for High Risk TCM Home Visit program due to: Readmission Risk Score does not meet criteria Disposition: Patient does not qualify for HRTIC, will provide TCM outreach follow-up for 30-days Patient Source: Vwb-da-Kqptepg (OON) Discharge Outreach Summary: Spoke with adryan Yeager education and training manager with [facility]- States Jayshree 's leg swelling currently improved. Will check BP and weight daily. Weight yesterday prior to dc was 291 lbs, today is 287 lbs- States pt is not having any dizziness, SOB , lightheadedness today. Discussed compression leg pumps - currently not working and they are attempting to obtain new pumps with documentation needed for insurance reapproval. Patient discharged from [facility] Discharge date: 02/19/24 Admitted for: Hypotension Readmission Risk: n/a Value-Based Contract: ACO Contact: Contact made with patient: Yes Hi, my name is Bradley Flores RN and I am calling from the [facility] on behalf of your Primary Care Provider, Marilee Thakur MD. I understand you were recently in the hospital, so I am calling to check in with you to ensure you are feeling well now that you are home. May I ask you a few questions related to your hospital stay and well-being? Yes Spoke to: Shobha RN intermediate Validation: Validated the person spoken to is [...] , Also noted Midodrine was rx at [facility], added to med list. Lisinopril and [...] like to speak with a social work grocery team member to help give you support for any [...] I will send your request to a painting worker who will contact and assist you with [...] Management partners utilized: N/A Bradley Flores RN [facility] (more content not included)...[facility]12-12-2024 Note [facility]12-09-2024 NoteHNO ID: [id number] Author: MARILEE THAKUR MD Service: ? Author [...] 2.5 mg tablet tor (more content not included)...[facility]12-09-2024 History of Present illness Narrative* Marilee Thakur [...] KNEE COMPRESSION) misc multivitamin-ferrous fumarate-folic acid (CERTAVITE-ANTIOXIDANT) Ibuba-5-DLD-EPA-Fish Oil 1,000 mg (120 mg-180 mg) cap [...] MEDICINE Marilee Thakur MD documented in this encounterAvita Health [facility]12-03-2024 Telephone encounter Note * Telephone Encounter - Aaliyah Gonzalez MA - 02/10/2024 4:45 PM EST Leia notified and verbalized understanding. Aaliyah Gonzalez MA [facility]12-03-2024 Miscellaneous Notes* Telephone Encounter - Aaliyah Gonzalez MA - 02/10/2024 4:45 PM EST Leia notified and verbalized understanding. Aaliyah Gonzalez MA * Telephone Encounter - Marilee Thakur MD - 02/10/2024 4:40 PM EST Verbal ok for the same Regards, Marilee Thakur MD * Telephone Encounter - Pamela Singh LPN - 02/10/2024 11:07 AM EST Leia with [facility], PT calling to see if you will give verbal orders for PT to comein to the home after hospitalization. DX. weakness and difficulty getting around. Please advise Leia with Verbal order to follow and sign. Pamela Singh LPN documented in this encounterAvita Health System [facility]12-03-2024 Telephone encounter Note * Telephone Encounter - Marilee Thakur MD - 02/10/2024 4:40 PM EST Verbal ok for the same Regards, Marilee Thakur MD [facility]12-03-2024 Telephone encounter Note* Telephone Encounter - Pamela Singh LPN - 02/10/2024 11:07 AM EST Leia with [facility], PT calling to see if you will give verbal orders for PT to comein to the home after hospitalization. DX. weakness and difficulty getting around. Please advise Leia with Verbal order to follow and sign. Pamela Singh LPN [facility]12-02-2024 Telephone encounter Note* Telephone Encounter - Pascale [...] Cerna LPN February 09, 2024 2:37 PM [facility]12-02-2024 Miscellaneous Notes* Telephone Encounter - Pascale Cerna [...] 09, 2024 2:37 PM documented in this encounterAvita Health System [facility]11-29-2024 NoteHNO ID: [id number] Author: MARILEE THAKUR MD Service: ? Author Type: Physician Type: Progress Notes Filed: 02/06/2024 14:56 Note Text: [facility]11-29-[facility]24 History of Present illness Narrative* Marilee Thakur MD - 02/06/2024 12:49 PM EST Duplicate note * Marilee Thakur MD - 02/06/2024 11:37 AM EST Reason for Visit Patient presents with: Hospital F/U: TCM [facility] 01/26/24 dx CHF Sia Abdul is a [...] calcifications. 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 She is on toresemide, I [...] 12 % cream multivitamin-ferrous fumarate-folic acid (CERTAVITE-ANTIOXIDANT) Eqaiw-6-XLY-EPA-Fish Oil 1,000 mg (120 mg-180 mg) cap [...] tablet Leg Brace (TRUE CMFT KNEE COMPRESSION) [facility] [employer] Gauze Bandage 2 X 2 [...] worse. Marilee Thakur MD documented in this encounterAvita Health System [facility]11-29-2024 NoteHNO ID: [id number] Author: MARILEE THAKUR MD Service: ? Author Type: Physician Type: Progress Notes Filed: 02/06/2024 14:56 Note Text: Reason for Visit Patient presents with: Hospital F/U: [facility] 01/26/24 dx CHF Sia Abdul is a [...] calcifications. 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 She is on toresemide, I [...] mg per tablet ondansetr (more content not included)...[facility]11-27-2024 NoteHNO ID: [id number] Author: BRADLEY FLORES RN Service: ? Author Type: Registered Nurse Type: Progress Notes Filed: 02/04/2024 10:38 Note Text: Transitional Care Management (TCM) Follow-Up Note PCP Update / Actionable Items N/A - No specialty updates needed Patient Source: Ank-jf-Qfnatfx (OON) Discharge Outreach Summary: Shobha Martell is doing well on Torsemide BID. She is losing 2-3 lbs a day. She is elevating her legs often during the day. Has been watching sodium and fluid rest. closely. Had one episode of dizziness while attempting to stand earlier this week and they are monitoring closely. PCP f/u 02/05 Patient discharged from [facility] Discharge date: 01/26/24 Admitted for: CHF Readmission Risk: n/a Value-Based Contract: ACO Contact: Contact made with patient: Yes Spoke to: Shobha ARREGUIN , group marketing vp Validation: Validated the person spoken to is [...] Bradley Flores RN February 04, 2024 10:35 [facility]11-27-2024 History of Present illness Narrative* Bradley Flores RN - 02/04/2024 10:33 AM EST Transitional Care Management (TCM) Follow-Up Note PCP Update / Actionable Items N/A - No specialty updates needed Patient Source: Iev-oe-Dccljuk (OON) Discharge Outreach Summary: Shobah Martell is doing well on Torsemide BID. She is losing 2-3 lbs a day. She is elevating her legs often during the day. Has been watching sodium and fluid rest. closely. Had one episode of dizziness while attempting to stand earlier this week and they are monitoring closely. PCP f/u 02/05 Patient discharged from [facility] Discharge date: 01/26/24 Admitted for: CHF Readmission Risk: n/a Value-Based Contract: ACO Contact: Contact made with patient: Yes Spoke to: Shobha ARREGUIN , group marketing vp Validation: Validated the person spoken to is [...] 04, 2024 10:35 AM documented in this encounterAvita Health System [facility]11-27-2024 Telephone encounter Note * Telephone Encounter - Aaliyah Gonzalez MA - 02/04/2024 8:56 AM EST Clarence at [facility] notified. Aaliyah Gonzalez MA [facility]11-27-2024 Miscellaneous Notes* Telephone Encounter - Aaliyah Gonzalez MA - 02/04/2024 8:56 AM EST Clarence at [facility] notified. Aaliyah Gonzalez MA * Telephone Encounter - Marilee Thakur MD - 02/03/2024 5:06 PM EST Yes will sign Marilee Lassiter MD * Telephone Encounter - Lillie Marshall RN - 02/03/2024 1:32 PM EST Clarence from [facility] calls asking if provider will continue to sign orders for intermediate, physical therapy, and occupational therapy. Lillie Marshall RN documented in this encounterAvita Health System [facility]11-27-2024 NotePatient Outreach (AMBCMG) SIA ABDUL ([id number]) 1980 F Date Time Provider Department 02/04/24 BRADLEY FLORES During your visit today, we recorded the following information about you: Bradley Flores, RODRÍGUEZ 02/04/2024 10:38 AM Signed Transitional Care Management (TCM) Follow-Up Note PCP Update / Actionable Items N/A - No specialty updates needed Patient Source: Lbr-bl-Oaihkwj (OON) Discharge Outreach Summary: Shobha reports Jayshree is doing well on Torsemide BID. She is losing 2-3 lbs a day. She is elevating her legs often during the day. Has been watching sodium and fluid rest. closely. Had one episode of dizziness while attempting to stand earlier this week and they are monitoring closely. PCP f/u 02/05 Patient discharged from [facility] Discharge date: 01/26/24 Admitted for: CHF Readmission Risk: n/a Value-Based Contract: ACO Contact: Contact made with patient: Yes Spoke to: Shobha ARREGUIN , group marketing vp Validation: Validated the person spoken to is [...] 1 tablet by mouth once daily. - Ilaeo-2-LVY-EPA-Fish Oil 1,000 mg (120 mg-180 mg) cap [...] mouth every 6 h (more content not included)...[facility]11-26-2024 Telephone encounter Note* Telephone Encounter - Marilee Thakur MD - 02/03/2024 5:06 PM EST Yes will sign Marilee Lassiter MD [facility]11-26-2024 Telephone encounter Note* Telephone Encounter - Lillie Marshall RN - 02/03/2024 1:32 PM EST Clarence from [facility] calls asking if provider will continue to sign orders for intermediate, physical therapy, and occupational therapy. Lillie Marshall RN [facility]11-25-2024 Telephone encounter Note* Telephone Encounter - Lillie [...] Marshall RN February 02, 2024 11:54 AM [facility]11-25-2024 Miscellaneous Notes* Telephone Encounter - Lillie Marshall [...] 02, 2024 11:54 AM documented in this encounterAvita Health System [facility] Hospital11-20-2024 NoteHNO ID: [id number] Author: NEETA RUTHERFORD, ? Service: ? Author Type: Patient Brokerage Coordinator Type: Progress Notes Filed: 01/28/2024 10:04 Note Text: POPULATION HEALTH NAVIGATION OUTREACH Action/FYI Scheduled TCM appt 02-06-2024 Tcm eligible until 02-09-2024 Patient discharged from [facility] Discharge date: 01/26/24 Admitted for: CHF Reason for Outreach Community Monitoring/Network Navigator Pools AND Phone Line: TCM Patient Contacted: Spoke to patient/parent/or legal guardian Patient identified by name and : Yes Community Monitoring/Network Navigator Pools AND Phone Line actions taken: Patient scheduled: Hospital Follow-up 02/06/2024 in [facility] with MARILEE THAKUR - hospital follow up , tcm eligible until 02-09-2024 02/20/2024 in [facility] with MARILEE THAKUR - 3 mo follow up; BL lymphedema 03/22/2024 in [facility] with OLDER, MIKA - physical Navigation Signature: Neeta Rutherford Population Health Navigator January 28, 2024 10:03 [facility]11-20-2024 History of Present illness Narrative* Neeta Rutherford - 01/28/2024 10:03 AM EST POPULATION HEALTH NAVIGATION OUTREACH Action/FYI Scheduled TCM appt 02-06-2024 Tcm eligible until 02-09-2024 Patient discharged from [facility] Discharge date: 01/26/24 Admitted for: CHF Reason for Outreach Community Monitoring/Network Navigator Pools & Phone Line: TCM Patient Contacted: Spoke to patient/parent/or legal guardian Patient identified by name and : Yes Community Monitoring/Network Navigator Pools & Phone Line actions taken: Patient scheduled: Hospital Follow-up 02/06/2024 in [facility] with MARILEE THAKUR - hospital follow up , tcm eligible until 02-09-2024 02/20/2024 in [facility] with MARILEE THAKUR - 3 mo follow up; BL lymphedema 03/22/2024 in [facility] with OLDER, MIKA - physical Navigation Signature: Neeta Rutherford, Population Health Navigator January 28, 2024 10:03 AM * Bradley Flores RN - 01/28/2024 9:21 AM EST Transition Care Management (TCM) Initial Outreach Navigation Team Please assist with scheduling [facility] Hospital Discharge Follow up. TCM Eligible until 02/09/24. Please call Shobha Dallas pt 's group marketing vp at [phone] to schedule. Thank you [facility] TCM Home Visit Referral Source of Stratification: [facility] Hospital Admission Status: Discharged Readmission Risk Score: n/a Patient's zip code: [address] Is zip code within program service area: No Patient meets program referral criteria: No Patient does not qualify for High Risk TCM Home Visit program due to: Readmission Risk Score does not meet criteria Disposition: Patient does not qualify for [facility], will provide TCM outreach follow-up for 30-days Patient Source: Pnb-we-Moiwwkv (OON) Discharge Outreach Summary: Shobha reports patient [...] TCM 30 day following. Patient discharged from [facility] Discharge date: 01/26/24 Admitted for: CHF Readmission Risk: n/a Value-Based Contract: ACO Chief Complaint: Dyspnea, weight gain, edema. HPI Narrative The patient is a 43 y/o F w/ PMHx: Morbid obesity, COPD w/ allergic rhinitis, Pulmonary HTN following w/ Dr. 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 ED on 01/23/24 with history of increased [...] be cautious. Patient reports seeing a new tutorial laboratory supervisor in [place] the Friday prior who discontinued her Lasix and Bumex with initiation on decreased dose of Lasix 20 mg twice daily with plan at that time [employer] tutorial laboratory supervisor on 01/23/2024 with similar symptoms to previous [...] RN and I am calling from the [facility] on behalf of your Primary Care Provider, Marilee Thakur MD. I understand you were recently in the hospital, so I am calling to check in with you to ensure you are feeling well now that you are home. May I ask you a few questions related to your hospital stay and well-being? Yes Spoke to: Shobha Dallas , group marketing vp Validation: Validated the person spoken to is [...] like to speak with a social work grocery team member to help give you support for any [...] I will send your request to a painting worker who will contact and assist you with that appointment. This will give you an opportunity to ask any questions or address any concerns youmay have with your PCP. Inform the patient that if they have any questions or concerns prior to that appointment, to call their PCP's office right away. Appointment Action: Patient desires an appointment. Complete Navigation Team box and route to [facility] ([id number]) for scheduling. Education Heart Failure Education Provided [...] 28, 2024 9:31 AM documented in this encounterAvita Health System [facility]11-20-2024 NoteHNO ID: [id number] Author: BRADLEY FLORES RN Service: ? Author Type: Registered Nurse Type: Progress Notes Filed: 02/20/2024 11:23 Note Text: Transition Care Management (TCM) Initial Outreach Navigation Team Please assist with scheduling TCM Hospital Discharge Follow up. TCM Eligible until 02/09/24. Please call Shobha Dallas pt 's group marketing vp at [phone] to schedule. [facility] Home Visit Referral Source of Stratification: TCM [facility] Hospital Admission Status: Discharged Readmission Risk Score: n/a Patient's zip code: [address] Is zip code within program service area: No Patient meets program referral criteria: No Patient does not qualify for High Risk TCM Home Visit program due to: Readmission Risk Score does not meet criteria Disposition: [facility], will provide TCM outreach follow-up for 30-days Patient Source: Ebk-mg-Pnadkvj (OON) Discharge Outreach Summary: Shobha reports patient [...] TCM 30 day following. Patient discharged from [facility] Discharge date: 01/26/24 Admitted for: CHF Readmission Risk: n/a Value-Based Contract: ACO Chief Complaint: Dyspnea, weight gain, edema. HPI Narrative The patient is a 43 y/o F w/ PMHx: Morbid obesity, COPD w/ allergic rhinitis, Pulmonary HTN following w/ Dr. 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 ED on 01/23/24 with history of increased [...] be cautious. Patient reports seeing a new tutorial laboratory supervisor in [place] the Friday prior who discontinued her Lasix and Bumex with initiation on decreased dose of Lasix 20 mg twice daily with plan at that time [employer] tutorial laboratory supervisor on 01/23/2024 with similar symptoms to previous [...] RN and I am calling from the [facility] on behalf of your Primary Care Provider, Marilee Thakur MD. I understand you were recently in the hospital, so I am calling to check in with you to ensure you are feeling well now that you are home. May I ask you a few questions related to your hospital stay and well-being? Yes Spoke to: Shobha Dallas , group marketing vp Validation: Validated the person spoken to is [...] needs are met - (more content not included)...[facility]11-20-2024 Note Patient Outreach (AMBCMG) SIA ABDUL ([id number]) 1980 F Date Time Provider Department 01/28/24 BRADLEY FLORES During your visit today, we recorded the following information about you: Bradley Flores, RODRÍGUEZ 02/20/2024 11:23 AM Addendum Transition Care Management (TCM) Initial Outreach Navigation Team Please assist with scheduling TCM Hospital Discharge Follow up. TCM Eligible until 02/09/24. Please call Shobha Dallas pt 's group marketing vp at [phone] to schedule. Thank you [facility] TCM Home Visit Referral Source of Stratification: [facility] Hospital Admission Status: Discharged Readmission Risk Score: n/a Patient's zip code: [facility] Is zip code within program service area: No Patient meets program referral criteria: No Patient does not qualify for High Risk TCM Home Visit program due to: Readmission Risk Score does not meet criteria Disposition: Patient does not qualify for [facility]IC, will provide TCM outreach follow-up for 30-days Patient Source: Jjj-xi-Gehrawp (OON) Discharge Outreach Summary: Shobha reports patient [...] TCM 30 day following. Patient discharged from [facility] Discharge date: 01/26/24 Admitted for: CHF Readmission Risk: n/a Value-Based Contract: ACO Chief Complaint: Dyspnea, weight gain, edema. HPI Narrative The patient is a 43 y/o F w/ PMHx: Morbid obesity, COPD w/ allergic rhinitis, Pulmonary HTN following w/ Dr. 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 ED on 01/23/24 with history of increased [...] be cautious. Patient reports seeing a new tutorial laboratory supervisor in [place] the Friday prior who discontinued her Lasix and Bumex with initiation on decreased dose of Lasix 20 mg twice daily with plan at that time [employer] tutorial laboratory supervisor on 01/23/2024 with similar symptoms to previous [...] RN and I am calling from the [facility] on behalf of your Primary Care Provider, Marilee Thakur MD. I understand you were recently in the hospital, so I am calling to check in with you to ensure you are feeling well now that you are home. May I ask you a few questions related to your hospital stay and well-being? Yes Spoke to: Shobha Dallas , group marketing vp Validation: Validated the person spoken to is [...] necessary equipment and supplies (more content not included)...[facility]11-18-2024 [facility] 01-23-2024 Telephone encounter Note* Telephone Encounter - Mika Kaplan APRN.CNP - 01/23/2024 12:16 PM EST Noted. Will need hospital follow up once discharged. Mika Kaplan APRN.CNP [facility]11-15-2024 Miscellaneous Notes* Telephone Encounter - Mika Kaplan APRN.CNP - 01/23/2024 12:16 PM EST Noted. Will need hospital follow up once discharged. Mika Kaplan APRN.CNP * Telephone Encounter - Candelaria Ball LPN - 01/23/2024 10:31 AM EST Clarence from [facility] calling patient Cariologist took her off the bumex and furosemide and put her on torsemide 20 mg twice daily. Last night her weight was 297.6 pounds. Patient is admitted to [facility] today with CHF. documented in this encounterAvita Health System [facility]11-15-2024 Telephone encounter Note * Telephone Encounter - Candelaria Ball LPN - 01/23/2024 10:31 AM EST Clarence from [facility] calling patient Cariologist took her off the bumex and furosemide and put her on torsemide 20 mg twice daily. Last night her weight was 297.6 pounds. Patient is admitted to [facility] today with CHF. [facility]11-15-2024 Telephone encounter Note* Telephone Encounter - Mika Kaplan APRN.CNP - 01/23/2024 7:21 AM EST Patient currently admitted to hospital with CHF. Will need orders once discharged. Thank you Mika Kaplan APRN.CNP [facility]11-15-2024 Miscellaneous Notes* Telephone Encounter - Mika Kaplan [...] 2:31 PM EST Clarence Calderon nurse with [facility] calling to see if he can get an order from provider's office for PT/OT for pt. 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 Having trouble getting on and off the bus to go to [place]. Hoping to get PT/OT to evaluate and treat. No need to call Clarence back. If okay, please fax orders to [phone] [facility]. documented in this encounterAvita Health System [facility]11-14-2024 NoteHNO ID: [id number] Author: MARTELL GARLAND RN Service: ? Author Type: Registered Nurse Type: Progress Notes Filed: 01/22/2024 16:10 Note Text: Transitional Care Management (TCM) Follow-Up Note PCP Update / Actionable Items Future Appts 02/19 Intm Wstr 03/22/24 Intm Wstr N/A - No specialty updates needed Patient Source: Onj-nt-Smkdvmg (OON) Discharge Outreach Summary: Spoke with Shobha/Service Or Work Dispatcher Chief at Nursing Home[facility], states patient is not feeling that great, [...] , no issues, stable Patient discharged from [facility] Discharge date: 01/02/24 Admitted for: HF,Dyspnea, orthopnea, [...] Martell Garland RN January 22, 2024 4:07 [facility]11-14-2024 History of Present illness Narrative* Martell Garland RN - 01/22/2024 4:00 PM EST Transitional Care Management (TCM) Follow-Up Note PCP Update / Actionable Items Future Appts 02/19 Intm Wstr 03/22/24 Int Wstr N/A - No specialty updates needed Patient Source: Rry-pu-Vnxndtm (OON) Discharge Outreach Summary: Spoke with Shobha/Service Or Work Dispatcher Chief at Nursing Home/ [facility], states patient is not feeling that great, [...] , no issues, stable Patient discharged from [facility] Discharge date: 01/02/24 Admitted for: HF,Dyspnea, orthopnea, [...] 22, 2024 4:07 PM documented in this encounterAvita [facility]11-14-[facility]24 Telephone encounter Note * Telephone Encounter - Mika Kaplan APRN.CATERERS HELPER - 01/22/2024 3:14 PM EST Agree with need for PT/OT and agree to follow. Thank you Mika Kaplan APRN.CATERERS HELPER [facility]11-14-2024 Telephone encounter Note* Telephone Encounter - Kristine Hayes RN - 01/22/2024 2:31 PM EST Clarence Calderon nurse with [facility] calling to see if he can get an order from provider's office for PT/OT for pt. 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 Having trouble getting on and off the bus to go to [place]. Hoping to get PT/OT to evaluate and treat. No need to call Clarence back. If okay, please fax orders to [phone] [facility]. [facility]11-14-2024 NotePatient Outreach (AMBCMG) SIA ABDUL ([id number]) 1980 F Date Time Provider Department 01/22/24 MARTELL GARLAND AMBTiera During your visit today, we recorded the following information about you: Martell Garland RN 01/22/2024 4:10 PM Signed Transitional Care Management (TCM) Follow-Up Note PCP Update / Actionable Items Future Appts 02/19 Intm Wstr 03/22/24 Intm Wstr N/A - No specialty updates needed Patient Source: Gda-ou-Dvsjqfo (OON) Discharge Outreach Summary: Spoke with Shobha/Service Or Work Dispatcher Chief at Nursing Home/ [facility], states patient is not feeling that great, [...] , no issues, stable Patient discharged from [facility] Discharge date: 01/02/24 Admitted for: HF,Dyspnea, orthopnea, [...] Visit: Transition Of Care [4074] Cmt: TCM [facility] Follow-up Day 20 Prescriptions as of 01/22/2024 [...] 2 SPRAYS IN EACH NOSTRIL DAILY - Mjgly-9-TLU-EPA-Fish Oil 1,000 mg (120 mg-180 mg) cap [...] for wheezing/shortness of b (more content not included)...[facility]11-12-2024 Telephone encounter Note* Telephone Encounter - Marilee Thakur MD - 01/20/2024 6:01 PM EST Noted Regards, Marilee Thakur MD [facility]11-12-2024 Miscellaneous Notes* Telephone Encounter - Marilee Thakur MD - 01/20/2024 6:01 PM EST Noted Regards, Marilee Thakur MD * Telephone Encounter - Eulalia Laureano RN - 01/20/2024 12:42 PM EST Shobha returns call and message below reviewed. Sohbha reports that patient was to see tutorial laboratory supervisor Isi Goodman with . Bumex and Furosemide [...] - 01/19/2024 8:58 AM EST Shobha from [facility] calls to report that patient has had a 15 pound weight gain since Damaso. Patient currently is on Bumex and Lasix. Patient has a little swelling in ankles and wrists. Patient has some swelling in Abdomen. Patient is not complaining of shortness of breath. Please review and advise, Lillie Marshall RN documented in this encounterAvita Health System [facility]11-12-2024 Telephone encounter Note * Telephone Encounter - Eulalia Laureano RN - 01/20/2024 12:42 PM EST Shobha returns call and message below reviewed. Shobha reports that patient was to see tutorial laboratory supervisor Isi Goodman with . Bumex and Furosemide were both stopped. Patient was placed on Demadex 20 mg twice daily for now. Shobha reports that per Dr. Goodman, patient is not absorbing the Bumex or furosemide and obesity could be a factor. Eulalia Laureano RN [facility]11-12-2024 Telephone encounter Note* Telephone Encounter - Pepper Walsh RN - 01/20/2024 8:41 AM EST left for Shobha to call provider's office for message below. Pepper Walsh RN [facility]11-12-2024 History of Present illness Narrative* Isi Goodman [...] pulmonary embolism. Patient was referred by her hospital scientist to establish care with general cardiology. Patient [...] , Rfl: ergocalciferol (Vitamin D-2) 1.25 MG (58135 UT) capsule, Take by mouth., Disp: , Rfl: fish oil concentrate (Baring-3) 120-180 mg capsule, Take 1 capsule (1 [...] Pulse 74 Wt 133 kg (294 lb) FwG278% BMI 65.21 kg/m Physical Exam: Physical Exam [...] testing Isi Goodman MD [facility] Work Phone: 1(398) 896-939211-12-2024 Instructions* Patient Instructions* Isi Goodman MD - 01/20/2024 8:30 AM EST We are stopping furosemide (lasix) and bumex; we are starting torsemide 20 mg twice a day (8 AM / 2PM). To further evaluate your shortness of breath and leg swelling we will check the heart with a heart ultrasound / echocardiogram. Thank you for your visit today. Please contact our office (via itembasehart or phone) with any additional questions. [facility] [place] RODRÍGUEZ Sun/Clinic Nurse for: Dr. Maxine Nicloas [address], [address] [place] [address] Press Option 5 then Option 3 to speak with the Clinic Nurse (Corinne) To Reach: Billing Questions - [phone] Scheduling / Rescheduling - Option 1 Refills / Medication Requests - Option 3 General Office / [place] - Option 4 Results - Option 6 Medical Records - Option 7 Repeat Options - Option 9 documented in this encounterOhio [facility] Hospital Work Phone: [phone]) 241-502211-11-2024 Telephone encounter Note* Telephone Encounter - Marilee Thakur MD - 01/19/2024 5:32 PM EST Stop the lasix And give her 2 mgs of bumex for the next 3 days Regards, Marilee Thakur MD [facility]11-11-2024 Telephone encounter Note* Telephone Encounter - Lillie Marshall RN - 01/19/2024 8:58 AM EST Shobha from [facility] calls to report that patient has had a 15 pound weight gain since Friday. Patient currently is on Bumex and Lasix. Patient has a little swelling in ankles and wrists. Patient has some swelling in Abdomen. Patient is not complaining of shortness of breath. Please review and advise, Lillie Marshall RN [facility]11-06-2024 Telephone encounter Note* Telephone Encounter - Mima Parson LPN - 01/14/2024 2:19 PM EST Shboha from [facility] notified Rx has been sent in & to start medication today. Shobha will check with pharm & get med from them. Mima Parson LPN [facility]11-06-2024 Miscellaneous Notes* Telephone Encounter - Mima Parson LPN - 01/14/2024 2:19 PM EST Shobha from [facility] notified Rx has been sent in & to start medication today. Shobha will check with pharm & get med from them. Mima Parson LPN * Telephone Encounter - Mika Kaplan APRN.CATERERS HELPER - 01/14/2024 1:34 PM EST Order sent. Please verify they are starting this today as she continues to have weight gain. Thank you Mika Kaplan APRN.OBED * Telephone Encounter - Mima Parson LPN - 01/14/2024 11:59 AM EST Shobha calling [facility] asking if Bumex can be sent [...] since yesterday pt is now [address] [facility]. They will be starting medication tomorrow [...] - 01/13/2024 8:08 AM EST Clarence from [facility] calling patient weight Friday am was 274 pounds. Patient weight this morning at 745 am is 278 pounds. Patient uses [facility] for the pharmacy. Please notify Clarence with any changes and also Shobha at Nursing Home [phone]. Please advise documented in this encounterAvita Health System [facility]11-06-2024 Telephone encounter Note * Telephone Encounter - Mika Kaplan APRN.CNP - 01/14/2024 1:34 PM EST Order sent. Please verify they are starting this today as she continues to have weight gain. Thank you Mika Kaplan APRN.CATERERS HELPER [facility]11-06-2024 Telephone encounter Note* Telephone Encounter - Mima Parson LPN - 01/14/2024 11:59 AM EST Shobha calling [facility] asking if Bumex can be sent in today as they want to start pt on it today? Order pending review. Mima Parson LPN [facility]11-06-2024 Telephone encounter Note* Telephone Encounter - Pamela Singh LPN - 01/14/2024 8:11 AM EST Spoke with Clarence and message below given. Clarence wanted to update you with progress on pt. She has gained another 6 pounds since yesterday pt is now [address] [facility]. They will be starting medication tomorrow 01-15-24 and will come in on Friday01/19/24 to get lab work done. If anything else is needed please call Clarence. Clarence will be keeping you updated on pt's weight and symptoms. Pamela Singh LPN [facility]11-05-2024 Telephone encounter Note* Telephone Encounter - Marilee Thakur MD - 01/13/2024 5:38 PM EST I want to give her bumex 1 mgs daily for 5 days and recheck her labs after that. Please let me know which pharmacy to call the medications into RegardsMarilee MD [facility]11-05-2024 Telephone encounter Note* Telephone Encounter - Candelaria Ball LPN - 01/13/2024 8:08 AM EST Clarence from [facility] calling patient weight Friday am was 274 pounds. Patient weight this morning at 745 am is 278 pounds. Patient uses [facility] for the pharmacy. Please notify Clarence with any changes and also Shobha at Nursing Home [phone]. Please advise [facility]11-04-2024 Note* Addendum Note - Marilee Thakur MD - 01/12/2024 2:29 PM ESTAddended by: MARILEE THAKUR on: 01/12/2024 02:29 PM Modules accepted: Level of Service [facility]11-04-2024 Miscellaneous Notes* Addendum Note - Marilee Thakur MD - 01/12/2024 2:29 PM ESTAddended by: MARILEE THAKUR on: 01/12/2024 02:29 PM Modules accepted: Level of Service documented in this encounterAvita Health System [facility]11-04-2024 Telephone encounter Note * Telephone Encounter - Aaliyah Gonzalez MA - 01/12/2024 12:48 PM EST Faxed as requested. Aaliyah Gonzalez MA [facility]11-04-2024 Miscellaneous Notes* Telephone Encounter - Aaliyah Gonzalez [...] ordered, will need to fax orders to [facility] at [phone], ATTN Shobha/Rafia Gonzalez MA documented in this encounterAvita Health System [facility]11-04-2024 Telephone encounter Note * Telephone Encounter - Mika Kalpan APRN.CNP - 01/12/2024 12:10 PM EST Orders placed. Please fax as requested Thank you Mika Kaplan APRN.CATERERS HELPER [facility]11-04-2024 Telephone encounter Note* Telephone Encounter - Aaliyah Gonzalez MA - 01/12/2024 10:16 AM EST Patient needs orders for Pneumatic compression, stockings, and wraps. Orders pended. Please file if agreeable. Once ordered, will need to fax orders to [facility] at [phone], ATTN Shobha/Rafia Gonzalez MA [facility]11-04-2024 NoteHNO ID: [id number] Author: MARILEE THAKUR MD Service: ? Author [...] (CERTAVITE-ANTIOXIDANT) fluticasone (FLONASE) 50 mcg/actuation nasal spray Nshkk-2-QUA-EPA-Fish Oil 1,000 mg (120 mg-180 mg) cap [...] GI: No dysphagia/odynophagia, prob (more content not included)...[facility]11-04-2024 History of Present illness Narrative* Marilee Thakur [...] (CERTAVITE-ANTIOXIDANT) fluticasone (FLONASE) 50 mcg/actuation nasal spray Uhpki-4-UAM-EPA-Fish Oil 1,000 mg (120 mg-180 mg) cap [...] I27.20 She is going to see the tutorial laboratory supervisor 5. Right ventricular dysfunction - ICD9: 429.9, ICD10: I51.9 Marilee Thakur MD documented in this encounterAvita Health System [facility]10-31-2024 Telephone encounter Note * Telephone Encounter - Rah Turner RN - 01/08/2024 9:22 AM EDT Blanca ORTEGA returned call and given verbal written by provider below. Blanca verbalized understanding. Still need Rx's sent to [facility]. [facility]10-31-2024 Miscellaneous Notes* Telephone Encounter - Rah Turner RN - 01/08/2024 9:22 AM EDT Blanca ORTEGA returned call and given verbal written by provider below. Blanca verbalized understanding. Still need Rx's sent to [facility]. * Telephone Encounter - Rah Turner RN - 01/08/2024 9:13 AM EDT Phoned Shobha and given provider's message below. Shobha agreeable. Shobha will have TOP FRAME MAKER call in for verbal.Will leave encounter open until TOP FRAME MAKER calls back. Reports the Rx's need to be sent to [facility]. Pended for [facility]. Patient has appt with tutorial laboratory supervisor- Dr. Goodman at [facility] on 01-20-24 @ 8:30 am, and with pcp on 01-12-24 @ 9 am. * Telephone Encounter - Mika Kaplan APRN.CNP [...] her next appointment? Thank you Mika Kaplan APRN.CATERERS HELPER * Telephone Encounter - Rah Turner RN - 01/08/2024 8:22 AM EDT Shobha- [place]- phoned stating she needs a reply today, hopefully within the hour, b/c she has an LPNthere who can take a verbal. # [phone]. She needs a verbal to continue lasix [...] other encounter closed: Note Shobha caregiver from Nursing Home calling patient weight today at 850 am [...] Please advise and phone Shobha with reply: [phone]. Shobha will still need order faxed to [phone] since she cannot take verbal. * Telephone Encounter - Teresa Ferrera RN - 01/07/2024 11:16 AM EDT Called and left a voicemail for Shobha -intermediate, caregiver to call back and ask for [...] Shobha is needing written directions faxed to [phone] as Shobha is not licensed and can not take verbal order. * Telephone Encounter - Marilee Thakur MD - 01/06/2024 5:02 PM EDT Would ask her to take daily lasix for 3 days She should have as a reserve. RegardsMarilee MD * Telephone Encounter - Candelaria Ball LPN - 01/06/2024 10:55 AM EDT Shobha from Nursing Home Caregiver calling with patient weight was told if went up 3 pounds to report toPCP. Patient weight today at 745 am was 269 pounds and yesterday weight was 266 pounds. Patient hashospital follow up scheduled for 01/12/2024 with PCP. documented in this encounterAvita Health System [facility]10-31-2024 Telephone encounter Note * Telephone Encounter - Rah Turner, RODRÍGUEZ - 01/08/2024 9:13 AM EDT Phoned Shobha and given provider's message below. Shobha agreeable. Shobha will have TOP FRAME MAKER call in for verbal.Will leave encounter open until TOP FRAME MAKER calls back. Reports the Rx's need to be sent to [facility]. Pended for [facility]. Patient has appt with tutorial laboratory supervisor- Dr. Goodman at [facility] on 01-20-24 @ 8:30 am, and with pcp on 01-12-24 @ 9 am. [facility]10-31-20[facility] Telephone encounter Note* Telephone Encounter - Mika [...] next appointment? Thank you Mika Kaplan APRN.OBED [facility]10-31-2024 Telephone encounter Note* Telephone Encounter - Rah Turner RN - 01/08/2024 8:22 AM EDT Shobha- [place]- phoned stating she needs a reply today, hopefully within the hour, b/c she has an LPNthere who can take a verbal. # [phone]. She needs a verbal to continue lasix 40 mg for 3 more days. States patient will be in crisis if they do not get this order. More information in below messages. [facility]10-30-2024 Telephone encounter Note* Telephone Encounter - Rah Turner RN - 01/07/2024 1:19 PM EDT See duplicate encounter. [facility]10-30-[facility] Miscellaneous Notes* Telephone Encounter - Rah Turner RN - 01/07/2024 1:19 PM EDT See duplicate encounter. * Telephone Encounter - Candelaria Ball LPN - 01/07/2024 10:26 AM EDT Shobha caregiver from Nursing Home calling patient weight today at 850 am was 276 pounds. She is on verystrict diet and liquid amount that she can drink daily. Patient is currently taking Lasix 40 mg daily. Please advise documented in this encounterAvita Health System [facility]10-30-2024 Telephone encounter Note * Telephone Encounter - Rah Turenr RN - 01/07/2024 1:08 PM EDT Shobha returned call. Shobha had called today at 10:29 am, and that message copied and pasted below, and the other encounter closed: Note Shobha caregiver from Nursing Home calling patient weight today at 850 am [...] Please advise and phone Shobha with reply: [phone]. Shobha will still need order faxed to [phone] since she cannot take verbal. [facility]10-30-20[facility] Telephone encounter Note* Telephone Encounter - Teresa Ferrera RN - 01/07/2024 11:16 AM EDT Called and left a voicemail for Shobha -intermediate, caregiver to call back and ask for a nurse to receive the providers message. Teresa Ferrera RN T [facility]10-30-2024 Telephone encounter Note* Telephone Encounter - Marilee Thakur MD - 01/07/2024 10:43 AM EDT Can you update me how much lasix she lost with the lasix, since discharge? Regards, Marilee Thakur MD [facility]10-30-2024 Telephone encounter Note* Telephone Encounter - Candelaria Ball LPN - 01/07/2024 10:26 AM EDT Shobha caregiver from Nursing Home calling patient weight today at 850 am was 276 pounds. She is on verystrict diet and liquid amount that she can drink daily. Patient is currently taking Lasix 40 mg daily. Please advise [facility]10-30-2024 Telephone encounter Note* Telephone Encounter - María Avila MA - 01/07/2024 8:18 AM EDT Spoke with Shobha, when patient was discharged from hospital, she was instructed to take 40 mg lasix for 5 days. Today is day #5. Do you want patient to take additional 3 days? Shobha is needing written directions faxed to [phone] as Shobha is not licensed and can not take verbal order. [facility]10-29-2024 Telephone encounter Note* Telephone Encounter - Marilee Thakur MD - 01/06/2024 5:02 PM EDT Would ask her to take daily lasix for 3 days She should have as a reserve. Regards, Marilee Thakur MD [facility]10-29-2024 Telephone encounter Note* Telephone Encounter - Candelaria Ball LPN - 01/06/2024 10:55 AM EDT Shobha from Nursing Home Caregiver calling with patient weight was told if went up 3 pounds to report toPCP. Patient weight today at 745 am was 269 pounds and yesterday weight was 266 pounds. Patient hashospital follow up scheduled for 01/12/2024 with PCP. T [facility]10-29-2024 NoteHNO ID: [id number] Author: MARTELL GARLAND RN Service: ? Author Type: Registered Nurse Type: Progress Notes Filed: 01/06/2024 10:00 Note Text: Transition Care Management (TCM) Initial Outreach PCP Update / Actionable Items Eligible for tcm through 01/16/24 Future Appts 02/19 Intm Wstr 03/22/24 Int Wstr HRTIC TCM Home Visit Referral Source of Stratification: TCM [facility] Admission Status: Discharged Readmission Risk Score: n/a Patient's zip code: [address] Is zip code within program service area: No Patient meets program referral criteria: No Patient does not qualify for High Risk TCM Home Visit program due to: Patient's zip code is not located within program service area Disposition: Patient does not qualify for HRTIC, will provide TCM outreach follow-up for 30-days Patient Source: Gzq-mj-Bkztbqr (OON) Discharge Outreach Summary: Spoke with Shobah/Service Or Work Dispatcher Chief at Nursing Home/ [facility], states is feeling way better, looks 1000 [...] , no issues, stable Patient discharged from [facility] Discharge date: 01/02/24 Admitted for: HF,Dyspnea, orthopnea, weight gain, chest pain, lower swelling Readmission Risk: n/a Value-Based Contract: ACO Contact: Contact made with patient: Yes Hi, my name is Martell Garland RN and I am calling from the [facility] on behalf of your Primary Care Provider, [...] like to speak with a social work grocery team member to help give you support for any [...] I will send your request to a painting worker who will contact and assist you with [...] Martell Garland RN January 06, 2024 9:54 [facility]10-29-2024 History of Present illness Narrative* Martell Garland RN - 01/06/2024 9:43 AM EDT Transition Care Management (TCM) Initial Outreach PCP Update / Actionable Items Eligible for tcm through 01/16/24 Future Appts 02/19 Intm Wstr 03/22/24 [facility] HRTIC TCM Home Visit Referral Source of Stratification: [facility] Admission Status: Discharged Readmission Risk Score: n/a Patient's zip code: [address] Is zip code within program service area: No Patient meets program referral criteria: No Patient does not qualify for High Risk TCM Home Visit program due to: Patient's zip code is not located within program service area Disposition: Patient does not qualify for HRTIC, will provide TCM outreach follow-up for 30-days Patient Source: Bgl-ym-Exvjjla (OON) Discharge Outreach Summary: Spoke with Shobha/Service Or Work Dispatcher Chief at Nursing Home/ [facility], statesis feeling way better, looks 1000 x [...] , no issues, stable Patient discharged from [facility] Discharge date: 01/02/24 Admitted for: HF,Dyspnea, orthopnea, weight gain, chest pain, lower swelling Readmission Risk: n/a Value-Based Contract: ACO Contact: Contact made with patient: Yes Hi, my name is Martell Garland RN and I am calling from the [facility] on behalf of your Primary Care Provider, [...] like to speak with a social work grocery team member to help give you support for any [...] I will send your request to a painting worker who will contact and assist you with [...] 06, 2024 9:54 AM documented in this encounterAvita Health System [facility]10-29-2024 NotePatient Outreach (AMBCMG) SIA ABDUL ([id number]) 1980 F Date Time Provider Department 01/06/24 MARTELL GARLAND AMBTERRI During your visit today, we recorded the following information about you: Martell Garland, RODRÍGUEZ 01/06/2024 10:00 AM Signed Transition Care Management (TCM) Initial Outreach PCP Update / Actionable Items Eligible for tcm through 11/8/24 Future Appts 02/19 Intm Wstr 03/22/24 [facility] HRTIC TCM Home Visit Referral Source of Stratification: TCM [facility] Admission Status: Discharged Readmission Risk Score: n/a Patient's zip code: [address] Is zip code within program service area: No Patient meets program referral criteria: No Patient does not qualify for High Risk TCM Home Visit program due to: Patient's zip code is not located within program service area Disposition: Patient does not qualify for HRTIC, will provide TCM outreach follow-up for 30-days Patient Source: Bkb-fn-Fncsgdu (OON) Discharge Outreach Summary: Spoke with Shobha/Service Or Work Dispatcher Chief at Nursing Home/ [facility], states is feeling way better, looks 1000 [...] , no issues, stable Patient discharged from [facility] Discharge date: 01/02/24 Admitted for: HF,Dyspnea, orthopnea, weight gain, chest pain, lower swelling Readmission Risk: n/a Value-Based Contract: ACO Contact: Contact made with patient: Yes Hi, my name is Martell Garland RN and I am calling from the [facility] on behalf of your Primary Care Provider, [...] like to speak with a social work grocery team member to help give you support for any [...] I will send your request to a painting worker who will contact and assist you with [...] MA - Fully Reba (more content not included)...[facility]10-25-2024 [facility] 12-26-2023 Telephone encounter Note* Telephone Encounter - María Avila MA - 12/26/2023 12:36 PM EDT Left message for return call. [facility]10-18-2024 Miscellaneous Notes* Telephone Encounter - María Avila MA - 12/26/2023 12:36 PM EDT Left message for return call. * Telephone Encounter - Mika Kaplan APRN.CNP - 12/26/2023 11:41 AM EDT As previous message - she needs seen earlier then scheduled. Thank you Mika Kaplan APRN.CNP * Telephone Encounter - Annie Brand RN - 12/25/2023 2:30 PM EDT Enrique, nurse @ [facility] calling to let provider know patient weighed 291.1 # this morning. She says patient does not have increase in leg edema nor shortness of breath. Last weight reported was 283# on 12/17/23. Enrique states patient is currently taking Lasix 40 mg daily and Potassium 20 mEq daily. Patient was in [facility] ER on 12/21/23 with SOB. Patient was in [facility] ER again on 12/23/23 for viral gastroenteritis. Patient scheduled for ER F/U with PCP on 01/02/24. Annie Brand RN documented in this encounter[facility] Telephone encounter Note * Telephone Encounter - Mika Kaplan APRN.CNP - 12/26/2023 11:41 AM EDT As previous message - she needs seen earlier then scheduled. Thank you Mika Kaplan APRN.CNP [facility]10-17-2024 Telephone encounter Note* Telephone Encounter - Annie Brand RN - 12/25/2023 2:30 PM EDT Enrique, nurse @ [facility] calling to let provider know patient weighed 291.1 # this morning. She says patient does not have increase in leg edema nor shortness of breath. Last weight reported was 283# on 12/17/23. Enrique states patient is currently taking Lasix 40 mg daily and Potassium 20 mEq daily. Patient was in [facility] ER on 12/21/23 with SOB. Patient was in [facility] ER again on 12/23/23 for viral gastroenteritis. Patient scheduled for ER F/U with PCP on 01/02/24. Annie Brand RN [facility]10-14-2024 Telephone encounter Note* Telephone Encounter - María Avila MA - 12/22/2023 1:49 PM EDT Pharmacist notified. [facility]10-14-2024 Miscellaneous Notes* Telephone Encounter - María Avila [...] - 12/22/2023 1:26 PM EDT Pharmacist @ [facility] calling to clarify orders for [...] advise. Annie Brand RN documented in this encounterAvita [facility]10-14-2024 Telephone encounter Note * Telephone Encounter - Mika Kaplan APRN.CNP - 12/22/2023 1:41 PM EDT She is supposed to be taking both short term. Is there a way to get her in earlier then in 10 days? Thank you Mika Kaplan APRN.OBED [facility]10-14-2024 Telephone encounter Note* Telephone Encounter - Annie Brand RN - 12/22/2023 1:26 PM EDT Pharmacist @ [facility] calling to clarify orders for [...] Please review and advise. Annie Brand RN [facility]10-14-2024 Telephone encounter Note* Telephone Encounter - Erendira Stewart LPN - 12/22/2023 1:22 PM EDT Call returned by Shobha message given as provided. She voices understanding. [facility]10-14-2024 Miscellaneous Notes* Telephone Encounter - Erendira Stewart LPN - 12/22/2023 1:22 PM EDT Call returned by Shobha message given as provided. She voices understanding. * Telephone Encounter - Teresa Ferrera RN - 12/22/2023 11:33 AM EDT Called and left a voicemail for the [facility] to call back and ask for a nurse to receivethe providers message. Teresa Ferrera RN * Telephone Encounter - Mika Kaplan APRN.CNP - 12/22/2023 10:57 AM EDT Prescription Resent. Thank you Mika Kaplan APRN.CATERERS HELPER * Telephone Encounter - Rah Turner RN - 12/22/2023 9:38 AM EDT [facility]- phoned to report patient was seen in [place] ER on Friday12-21-23, with SOB. ER gave patient IV lasix and sent patient home. Reports patient is having stress in intermediate with another housemate, which is causing patient anxiety, and this was part of the problem, but patient has also been having problems with edema. This nurse phoned Shobha- caregiver @ [facility] to schedule ER f/u appt, and noted in 12-17-23 encounter, Invoicing Machine Operator had ordered potassium 20 mg daily, and lasix 40 mg daily, until patient is seen. Asked Shobha how patient is doing on this dose. Shobha reports patient never received the medication, b/c it was sent to the wrong pharmacy, should have been sent to [facility]. Shobha did call pcp to report this (see message below), but never received the medication. Reports even if the medication is sent to [facility] today- they still will not receive it until Fri. Pended medications for [facility]. Please send geovanny. Shobha reports patient is doing fine today- and they are working on the problem with the housemate. Scheduled patient hosp f/u appt for 01-01-24. * Telephone Encounter - Erendira Stewart LPN - 12/18/2023 2:09 PM EDT Shobha from [facility] there were medications sent for pt yesterday documented in this encounterAvita [facility]10-14-[facility]24 Telephone encounter Note * Telephone Encounter - Teresa Ferrera RN - 12/22/2023 11:33 AM EDT Called and left a voicemail for the [facility] to call back and ask for a nurse to receivethe providers message. Teresa Ferrera RN [facility]10-14-[facility]24 Telephone encounter Note* Telephone Encounter - Mika Kaplan APRN.CNP - 12/22/2023 10:57 AM EDT Prescription Resent. Thank you Mika Kaplan APRN.OBED [facility]10-14-2024 Telephone encounter Note* Telephone Encounter - Rah Turner, RN - 12/22/2023 9:38 AM EDT [facility]- phoned to report patient was seen in [place] ER on Friday12-21-23, with SOB. ER gave patient IV lasix and sent patient home. Reports patient is having stress in intermediate with another housemate, which is causing patient anxiety, and this was part of the problem, but patient has also been having problems with edema. This nurse phoned Shobha- caregiver @ [facility] to schedule ER f/u appt, and noted in 12-17-23 encounter, Invoicing Machine Operator had ordered potassium 20 mg daily, and lasix 40 mg daily, until patient is seen. Asked Shobha how patient is doing on this dose. Shobha reports patient never received the medication, b/c it was sent to the wrong pharmacy, should have been sent to [facility]. Shobha did call pcp to report this (see message below), but never received the medication. Reports even if the medication is sent to [facility] today- they still will not receive it until Fri. Pended medications for [facility]. Please send geovanny. Shobha reports patient is doing fine today- and they are working on the problem with the housemate. Scheduled patient hosp f/u appt for 01-01-24. [facility]10-13-[facility]24 Hospital Discharge instructions Patient Education 12/21/2023 18:10:56 [...] or as directed by your healthcare provider [phone] [employer] [place] [address]. All rights reserved. This information is not intended as a substitute for professional medical care. Always follow yourhealthcare professional's instructions. Follow Up Care 12/21/2023 14:01:46 With:please follow up with your tutorial laboratory supervisor Address:Unknown When:2-4 days With:Go to emergency room if symptoms worsen Address:Unknown When:2-4 days With:MARILEE THAKUR MD Address: [address] [place] [address]- When:2-4 days [facility] 10-13-2024 Emergency department Discharge summary Discharge Instructions Thank you for allowing [facility] to assist you with your healthcare needs. [...] other acute concerns. Otherwise follow-up with your tutorial laboratory supervisor as scheduled. No qualifying data available. Post Acute Orders No qualifying data available. You Need to Schedule the Following Appointments Follow Up with please follow up with your tutorial laboratory supervisor When:Within 2-4 days Follow Up with Go to emergency room if symptoms worsen When:Within 2-4 days Follow Up with MARILEE THAKUR MD When:Within 2-4 days Where:[address] [place] [address]- Allergies Bee Stings Dilantin misc non-codified allergy [...] or as directed by your healthcare provider [phone] [employer]. [address] [place] [address], [place] [address]. All rights reserved. This information is not intended as a substitute for professional medical care. Always follow yourhealthcare professional's instructions. Additional Information VACCINATE! IT SAVES LIVES! Members of the community who have not yet received the COVID-19 vaccine and would like to receive it can visit one of [facility] vaccine clinics. There are many vaccine clinic locations within the [facility]. For locations and available times, please visit www.gettheshot.coronavirus.[place].gov/. It is important to note that some COVID mobile vaccine clinics are held outdoors and may be canceled in rainy or stormy conditions. To learn more about pediatric vaccinations (ages 5-11), we invite you to visit the [facility] webpage. https://www.[email or web address]/pages/[email or web address]-Nsjchlqzonq-Vthkeoblxc-Ehsgl-Atm stions.htmlTo learn more about the COVID-19 vaccine, we invite you to visit the CDC website for a list of frequently asked questions. https://www.cdc.gov/coronavirus/2019-ncov/vaccines/faq.html [facility] Patient Portal Access Instructions: Stay connected with your healthcare team and access your personal medical information anytime with the [facility] Patient Portal. If you would like a full copy of your medical records please contact the [facility] Medical Records Department Friday through Friday between 8a.m. and 4:30p.m. Please follow the directions below to access the portal: 1.Access the email account you provided upon registration to the [facility].2.Look for an invitation email from [facility].3.Open the email and access the invitation link: Accept Invitation to [facility]4.Fill in the required perez to create your account. Sign into www.[employer] with your username and password that you [...] you will allow to register on the [facility] Patient Portal for access to your information. You can also access the [facility] Patient Portal on the [employer]. Simply click on Health Records under [employer] and then click on the [employer]socializer logo. HOW TO SAFELY DISPOSE OF PRESCRIPTION [...] Call your local pharmacy or go to [email or web address] Safety/[email or web address] to find one close to you.3.Make use of household items: Use cat litter or old coffee grounds to dispose medications if other options arenot available. Mix your drugs with these household products, seal them in an airtight container andthrow it into the garbage. Call [facility]: [phone] to be sure your drugs can be [...] aware that I should contact my doctor. Patient/Children'S Tutor Signature: Date/Time: Relationship to Patient: Witness Name/Signature: Date/Time: [facility]10-13-2024 Note ORIGINAL EXAMINATION: ONE XRAY VIEW OF [...] Date: 12/21/2023 3:28:25 PM Ordering Provider: [facility] Note Sinus rhythm Borderline left axis deviation Abnormal R-wave progression, late transition Borderline T abnormalities, anterior leads Baseline wander in lead(s) V4 Electronic Signature: TABATHA PAGE DO 12/21/2023 14:45:23[facility] 10-10-2024 Telephone encounter Note* Telephone Encounter - Erendira Stewart LPN - 12/18/2023 2:09 PM EDT Shobha from [facility] calling states there were medications sent for pt yesterday [facility]10-09-2024 Telephone encounter Note* Telephone Encounter - Mika Kaplan APRN.CNP - 12/17/2023 4:43 PM EDT New scripts sent Mika Kaplan APRN.CNP [facility]10-09-2024 Miscellaneous Notes* Telephone Encounter - Mika Kaplan APRN.CNP - 12/17/2023 4:43 PM EDT New scripts sent Mika Kaplan APRN.CNP * Telephone Encounter - Lillie Marshall RN - 12/17/2023 2:26 PM EDT Clarence called and notified of below , Clarence voices understanding. Clarence is going to pass this along to intermediate. Clarence asking if new scripts can be sent to [facility]? Please review and advise, Lillie Marshall RN [...] RN - 12/17/2023 9:04 AM EDT Clarence- [facility]- phoned with patient update: Reports [...] Please advise and phone Clarence with reply: [phone] documented in this encounterAvita [facility]10-09-2024 Telephone encounter Note * Telephone Encounter - Lillie Marshall RN - 12/17/2023 2:26 PM EDT Clarence called and notified of below , Clarence voices understanding. Clarence is going to pass this along to intermediate. Clarence asking if new scripts can be sent to [facility]? Please review and advise, Lillie Marshall RN [facility]10-09-2024 Telephone encounter Note* Telephone Encounter - Mika Kaplan APRN.CNP - 12/17/2023 1:22 PM EDT Patient needs to be seen to evaluate why this is continuing to occur. Can increase lasix to 40mg and the potassium to 20mg both daily until seen. Thank you Mika Kaplan APRN.CATERERS HELPER [facility]10-09-2024 Telephone encounter Note* Telephone Encounter - Rah Turner RN - 12/17/2023 9:04 AM EDT Clarence- [facility]- phoned with patient update: Reports [...] Please advise and phone Clarence with reply: [phone] [facility]10-04-2024 Telephone encounter Note* Telephone Encounter - Lillie Marshall RN - 12/12/2023 1:28 PM EDT Clarence from [facility] and states that presciption needs to be sent to [facility] and is asking for prescription to be sent to them as well at [phone]. Lillie Marshall RN [facility]10-04-2024 Miscellaneous Notes* Telephone Encounter - Lillie Marshall RN - 12/12/2023 1:28 PM EDT Clarence from [facility] and states that presciption needs to be sent to [facility] and is asking for prescription to be sent to them as well at [phone]. Lillie Marshall RN documented in this encounterAvita [facility]10-04-2024 Telephone encounter Note * Telephone Encounter - Ashley Martinez LPN - 12/12/2023 1:05 PM EDT Clarence notified and voiced his understanding. [facility]10-04-2024 Miscellaneous Notes* Telephone Encounter - Ashley Martinez [...] - 12/12/2023 8:06 AM EDT Clarence from [facility] calling patient weight this morning was 286 pounds. She has increased edema aaron legs, slightly unsteady gait, vitals good, slight shortness of breath with exertion.He said her Furosemide 20 mg one tablet every other day, wearing her compression stockings, using her lymphedema cuffs. Please advise documented in this encounterAvita [facility]10-04-2024 Telephone encounter Note * Telephone Encounter - Mika Kaplan APRN.CNP - 12/12/2023 12:36 PM EDT Hurt current lasix and potassium dose and give Lasix 40mg daily for the next 3 days and potassium 20meq for the next 3 days as well. Then restart current dose. Follow up if no improvement. Thank you Mika Kaplan APRN.CNP [facility]10-04-2024 Telephone encounter Note* Telephone Encounter - Candelaria Ball LPN - 12/12/2023 8:06 AM EDT Clarence from [facility] calling patient weight this morning was 286 pounds. She has increased edema aaron legs, slightly unsteady gait, vitals good, slight shortness of breath with exertion.He said her Furosemide 20 mg one tablet every other day, wearing her compression stockings, using her lymphedema cuffs. Please advise [facility]09-30-2024 Telephone encounter Note* Telephone Encounter - Lacie Reyes LPN - 12/08/2023 8:08 AM EDT Called and updated Clarence, voiced understanding. Lacie Reyes LPN December 08, 2023 8:08 AM [facility]09-30-2024 Miscellaneous Notes* Telephone Encounter - Lacie Reyes LPN - 12/08/2023 8:08 AM EDT Called and updated Clarence, voiced understanding. Lacie Reyes LPN December 08, 2023 8:08 AM * Telephone Encounter - Marilee Thakur MD - 12/05/2023 7:28 PM EDT Noted, verbal ok for the same Regards, Marilee Thakur MD * Telephone Encounter - Candelaria Ball LPN - 12/05/2023 9:19 AM EDT Clarence from [facility] calling time for recert intermediate services. Patient intermediate was purchased by another [employer], nurses will be there more. Patient will be weighed once weekly and log kept to bring to appts. Patient is taking her second antibiotic for cellulitis. Please advise documented in this encounterAvita [facility]09-27-2024 Telephone encounter Note * Telephone Encounter - Marilee Thakur MD - 12/05/2023 7:28 PM EDT Noted, verbal ok for the same Regards, Marilee Thakur MD [facility]09-27-2024 Telephone encounter Note* Telephone Encounter - Candelaria Ball LPN - 12/05/2023 9:19 AM EDT Clarence from [facility] calling time for recert intermediate services. Patient intermediate was purchased by another company, nurses will be there more. Patient will be weighed once weekly and log kept to bring to appts. Patient is taking her second antibiotic for cellulitis. Please advise [facility]09-16-20[facility] Telephone encounter Note* Telephone Encounter - Pepper [...] ON LEGS AT BEDTIME Pepper Walsh RN [facility]09-16-2024 Miscellaneous Notes* Telephone Encounter - Pepper Walsh [...] BEDTIME Pepper Walsh RN documented in this encounterAvita Health System [facility]09-10-2024 NoteHNO ID: [id number] Author: MARILEE THAKUR MD Service: ? Author [...] (CERTAVITE-ANTIOXIDANT) fluticasone (FLONASE) 50 mcg/actuation nasal spray Izifj-9-GSB-EPA-Fish Oil 1,000 mg (120 mg-180 mg) cap [...] DEVICE - COMPRESSION STOCK (more content not included)...[facility] 11-18-2023 History of Present illness Narrative* Marilee [...] (CERTAVITE-ANTIOXIDANT) fluticasone (FLONASE) 50 mcg/actuation nasal spray Lkrcq-8-NKY-EPA-Fish Oil 1,000 mg (120 mg-180 mg) cap [...] RELEASE(PART/CRYST) Marilee Thakur MD documented in this encounterAvita [facility]09-05-2024 Telephone encounter Note * Telephone Encounter - María Avila MA - 11/13/2023 2:44 PM EDT Shaunna notified. [facility]09-05-[facility] Miscellaneous Notes* Telephone Encounter - María Avila MA - 11/13/2023 2:44 PM EDT Shaunna notified. * Telephone Encounter - María Avila MA - 11/13/2023 2:42 PM EDT ----- Message from Mika Kaplan APRN.OBED sent at 11/13/2023 2:13 PM EDT ----- Please let [facility] know preliminary result of US is negative for blood clot. Thank you Mika Kaplan APRN.CATERERS HELPER documented in this encounterAvita Health System [facility]09-05-2024 Telephone encounter Note * Telephone Encounter - María Avila MA - 11/13/2023 2:42 PM EDT ----- Message from Mika Kaplan APRN.OBED sent at 11/13/2023 2:13 PM EDT ----- Please let [facility] know preliminary result of US is negative for blood clot. Thank you Mika Kaplan APRN.CATERERS HELPER [facility]09-05-2024 Telephone encounter Note* Telephone Encounter - Mika Kaplan APRN.CNP - 11/13/2023 12:24 PM EDT Discussed in appointment today Mika Kaplan APRN.CNP [facility]09-05-2024 Miscellaneous Notes* Telephone Encounter - Mika Kaplan APRN.CNP - 11/13/2023 12:24 PM EDT Discussed in appointment today Mika Kaplan APRN.CATERERS HELPER * Telephone Encounter - Pamela Singh LPN - 11/12/2023 10:10 AM EDT Clarence called back with more information. He weighed pt today and she weighed 265. She normally weighs 250 to 255. Per Clarence pt may be going to Urgent Care somewhere, he wasn't sure. Pamela Singh LPN * Telephone Encounter - Candelaria Ball LPN - 11/12/2023 9:27 AM EDT Clarence from [facility] calling 2 weeks ago ER [...] be seen by PCP. documented in this encounterAvita Health System [facility]09-05-2024 Instructions* Patient Instructions* Mika Kaplan APRN.OBED - 11/13/2023 11:25 AM EDT Take Lasix daily with daily potassium supplement for the next 4 days. Hold multivitamin and calcium while on doxycycline. documented in this encounterAvita Health System [facility]09-05-2024 NoteHNO ID: [id number] Author: MIKA KAPLAN APRN.OBED Service: ? Author [...] then usual and painful. Went immediately to [place] ER on 10/29. No US completed to [...] INSTILL 2 SPRAYS IN EACH NOSTRIL DAILY Ytfwg-1-XUQ-EPA-Fish Oil 1,000 mg (120 mg-180 mg) cap [...] to ankle. No ope (more content not included)...[facility] 11-13-2023 History of Present illness Narrative* Mika Kaplan APRN.[facility] 11/13/2023 11:10 AM EDT CC: Patient presents with: Recheck: ER follow up, cellulitis completed AIB HPI Sia Abdul is a 43 year old female who presents today for cellulitis Unsure if there was injury or what caused infection but noticed while playing basketball that leg was red, hot, more swollen then usual and painful. Went immediately to [place] ER on 10/29. No US completed to [...] INSTILL 2 SPRAYS IN EACH NOSTRIL DAILY Mbfoh-0-CSK-EPA-Fish Oil 1,000 mg (120 mg-180 mg) cap [...] plan. Mika Kaplan APRN.OBED documented in this encounterAvita Health System [facility]09-04-2024 Telephone encounter Note * Telephone Encounter - Pamela Singh LPN - 11/12/2023 10:10 AM EDT Clarence called back with more information. He weighed pt today and she weighed 265. She normally weighs 250 to 255. Per Clarence pt may be going to Urgent Care somewhere, he wasn't sure. Pamela Singh LPN [facility]09-04-2024 Telephone encounter Note* Telephone Encounter - Candelaria Ball LPN - 11/12/2023 9:27 AM EDT Clarence from [facility] calling 2 weeks ago ER [...] this week to be seen by PCP. [facility]08-02-2024 Telephone encounter Note* Telephone Encounter - Candelaria Ball LPN - 10/10/2023 8:37 AM EDT Phoned Clarence and went over notes below from Dr Thakur with understanding. [facility]08-[facility] Miscellaneous Notes* Telephone Encounter - Candelaria Ball LPN - 10/10/2023 8:37 AM EDT Phoned Clarence and went over notes below from Dr Thakur with understanding. * Telephone Encounter - Marilee Thakur MD - 10/09/2023 5:58 PM EDT Agree Regards, Marilee Thakur MD * Telephone Encounter - Candelaria Ball LPN - 10/09/2023 1:32 PM EDT Clarence from [facility] calling to recert orders for shelter for the patient, [facility] would agree. Please advise documented in this encounterAvita Health [facility]08-01-2024 Telephone encounter Note * Telephone Encounter - Marilee Thakur MD - 10/09/2023 5:58 PM EDT Agree Regards, Marilee Thakur MD [facility]08-01-2024 Telephone encounter Note* Telephone Encounter - Marilee Thakur MD - 10/09/2023 5:58 PM EDT Noted and agree Regards, Marilee Thakur MD [facility]08-01-2024 Miscellaneous Notes* Telephone Encounter - Marilee Thakur MD - 10/09/2023 5:58 PM EDT Noted and agree Regards, Marilee Thakur MD * Telephone Encounter - Pepper Walsh RN - 10/09/2023 2:08 PM EDT Stephanie with [facility] calling to update PCP that patient has 3cm open area to her right gonzales. Will keep it open to air and does not feel dressing is necessary. Patient is unsure how she acquired it but does pick at skin. HH Nursing will continue to monitor area. No call back needed, if provider agreeable. Pepper Walsh RN . documented in this encounterAvita Health System [facility]08-01-2024 Telephone encounter Note * Telephone Encounter - Pepper Walsh RN - 10/09/2023 2:08 PM EDT Stephanie with [facility] calling to update PCP that patient has 3cm open area to her right gonzales. Will keep it open to air and does not feel dressing is necessary. Patient is unsure how she acquired it but does pick at skin. HH Nursing will continue to monitor area. No call back needed, if provider agreeable. Pepper Walsh RN . [facility] [facility]08-01-2024 Telephone encounter Note* Telephone Encounter - Candelaria Ball LPN - 10/09/2023 1:32 PM EDT Clarence from [facility] calling to recert orders for shelter for the patient, ifPCP would agree. Please advise [facility]07-12-2024 Telephone encounter Note* Telephone Encounter - Pascale [...] Cerna LPN September 19, 2023 12:56 PM [facility]07-12-2024 Miscellaneous Notes* Telephone Encounter - Pascale Cerna [...] 19, 2023 12:30 PM documented in this encounterAvita [facility] Telephone encounter Note * Telephone Encounter - [...] Usha Zuniga September 19, 2023 12:30 PM [facility]06-14-2024 Telephone encounter Note* Telephone Encounter - Aaliyah [...] INSTILL 2 SPRAYS IN EACH NOSTRIL DAILY Lllep-6-CXN-EPA-Fish Oil 1,000 mg (120 mg-180 mg) cap 31 capsule 10 Sig: Take 1 capsule by mouth once daily. Aaliyah Royal August 22, 2023 12:51 PM [facility] Work Phone: [phone] Miscellaneous Notes* Telephone Encounter - Aaliyah Zhang [...] INSTILL 2 SPRAYS IN EACH NOSTRIL DAILY Oefwh-2-DQV-EPA-Fish Oil 1,000 mg (120 mg-180 mg) cap 31 capsule 10 Sig: Take 1 capsule by mouth once daily. Aaliyah Royal August 22, 2023 12:51 PM documented in this encounterAvita [facility]06[facility] Telephone encounter Note * Telephone Encounter - Aaliyah Gonzalez MA - 08/11/2023 12:52 PM EDT Pharmacy request denied. Patient needs to contact office for refills. Aaliyah Gonzalez MA [facility]06-03-2024 Miscellaneous Notes* Telephone Encounter - Aaliyah Gonzalez MA - 08/11/2023 12:52 PM EDT Pharmacy request denied. Patient needs to contact office for refills. Aaliyah Gonzalez MA documented in this encounterAvita [facility]05-30-[facility]24 Telephone encounter Note * Telephone Encounter - Darlene Alvarez OCCA - 08/07/2023 12:56 PM EDT Clarence informed of below. ANUPAMA Lira [facility]05-30-2024 Miscellaneous Notes* Telephone Encounter - Darlene Alvarez OCCA - 08/07/2023 12:56 PM EDT Clarence informed of below. ANUPAMA Lira * Telephone Encounter - Moni Norton APRN.CNS - 08/07/2023 12:45 PM EDT OK * Telephone Encounter - Lillie Marshall RN - 08/07/2023 10:43 AM EDT Clarence from [facility] calls to see if provider will continue to follow orders for intermediate? Lillie Marshall RN documented in this encounterAvita [facility] Telephone encounter Note * Telephone Encounter - Moni Norton APRN.CNS - 08/07/2023 12:45 PM EDT OK [facility]05-30-2024 Telephone encounter Note* Telephone Encounter - Lillie Marshall RN - 08/07/2023 10:43 AM EDT Clarence from [facility] calls to see if provider will continue to follow orders for intermediate? Lillie Marshall RN [facility]05-29-2024 Telephone encounter Note* Telephone Encounter - Pascale [...] Henderson LPN August 06, 2023 4:16 PM [facility]05-29-2024 Miscellaneous Notes* Telephone Encounter - Pascale Henderson [...] Thank you. Monica Grady. documented in this encounterAvita Health System [facility]05-29-2024 Telephone encounter Note * Telephone Encounter - [...] care: Please advise. Thank you. Monica Grady. [facility]05-13-2024 Telephone encounter Note* Telephone Encounter - Aaliyah [...] Please advise. Thank you. Aaliyah Gonzalez MA. [facility]05-13-2024 Miscellaneous Notes* Telephone Encounter - Aaliyah Gonzalez [...] notify patient. Usha Zuniga documented in this encounterAvita Health System [facility]05-13-2024 Telephone encounter Note * Telephone Encounter - [...] No need to notify patient. Usha Zuniga [facility]04-30-2024 Telephone encounter Note* Telephone Encounter - Pascale [...] nystatin (NYAMYC) powder [Pharmacy Med Name: Nyamyc [id number] UNIT/GM Powder] 60 g 10 Sig: APPLY TOPICALLY TWICE DAILY TO AFFECTED AREA(S) ON ABDOMINAL FOLDS Date of last office visit in primary care: 03/19/2023 Date of next office visit in primary care: 03/22/2024 Please advise. Thank you. Pascale Henderson LPN. [facility]04-30-2024 Miscellaneous Notes* Telephone Encounter - Pascale Henderson [...] nystatin (NYAMYC) powder [Pharmacy Med Name: Nyamyc [id number] UNIT/GM Powder] 60 g 10 Sig: APPLY TOPICALLY TWICE DAILY TO AFFECTED AREA(S) ON ABDOMINAL FOLDS Date of last office visit in primary care: 03/19/2023 Date of next office visit in primary care: 03/22/2024 Please advise. Thank you. Pascale Henderson LPN. documented in this encounterAvita Health System [facility]04-30-2024 Telephone encounter Note * Telephone Encounter - [...] Please advise. Thank you. Pascale Henderson LPN. [facility]04-30-2024 Miscellaneous Notes* Telephone Encounter - Pascale Henderson [...] you. Pascale Henderson LPN. documented in this encounterAvita Health [facility]04-05-2024 Miscellaneous Notes* Telephone Encounter - Pascale Henderson [...] you. Pascale Henderson LPN. documented in this encounterAvita Health System [facility]03-25-2024 Miscellaneous Notes* Telephone Encounter - María Avila MA - 06/02/2023 3:30 PM EDT Left message for return call. * Telephone Encounter - María Avila MA - 05/29/2023 11:33 AM EDT Tried calling mixing house operator, call was dropped. * Telephone Encounter - Mika Kaplan APRN.CNP - 05/29/2023 11:09 AM EDT Dulera ordered in equivalent dosing to symbicort. Call intermediate to give below information and change in [...] 05/26/2023 1:27 PM EDT Sia Abdul (Griffith: [id number]) - [id number] Budesonide-Formoterol Fumarate 160-4.5MCG/ACT aerosol Status: PA Request Created: March 13, 2023 [id number] Sent: May 26, 2023 * Telephone Encounter - Eulalia Laureano RN - 05/26/2023 11:26 AM EDT Prior Authorization Documentation Prior authorization requested for the following medication: Medication: Symbicort Provider: Latesha Garibay Insurance Company Name: Medicare A/B and Medicaid secondary Insurance Company Phone number: Not listed Patient ID number: Medicare: [id number] Medicaid: [id number] Pharmacy Name: [facility] Telephone number: [phone]. Caregiver calls to request. Reports pharmacy is also faxing request. Eulalia Laureano RN documented in this encounterAvita Health System [facility]03-22-2024 Miscellaneous Notes* Telephone Encounter - María Avila Ma - 05/30/2023 2:47 PM EDT Faxed to [facility] as requested. * Telephone Encounter - Ofelia Rodriguez - 05/30/2023 12:14 PM EDT Patient verified by name and . Her care provider, Shaunna Bang calling to request a mammogram screening order be faxed to [facility] to complete. She can be reached at [phone] with any questions. Please review and advise. documented in this encounterAvita Health System [facility]11-13-2023 Miscellaneous Notes* Telephone Encounter - Mackenzie Elmore LPN - 01/20/2023 2:39 PM EST Patient has been identified by name and date of : Yes Patient phones for refill(s): Requested Prescriptions Pending Prescriptions Disp Refills echbund-uoovxdvpy-xegxdug D3 (OYSTER SHELL CALCIUM-VITAMIN D) 500 mg-5 [...] Yes Requested Prescriptions Pending Prescriptions Disp Refills anifrpc-qfgwutncx-lduqhpf D3 (OYSTER SHELL CALCIUM-VITAMIN D) 500 mg-5 mcg (200 unit) per tablet 62tablet 5 Sig: Take 1 tablet by mouth two times a day with meals. RX INSTRUCTIONS: Patient aware RX will be sent to pharmacy. No need to notify patient. Aaliyah Royal documented in this encounterAvita Health System [facility]10-05-2023 Miscellaneous Notes* Telephone Encounter - Mackenzie Elmore [...] and advise. Mima Royal documented in this encounterAvita Health System [facility]09-28-2023 History of Present illness Narrative* Food/Nutrition related [...] INTAKE: * Pt and caregiver (Anali - Deep Fat Cook Fry) present in out-patient PWS clinic for a scheduled f/u clinic visit. 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 The Nursing Home sends packed meals home with her. * [...] to dietitian * - Send copies of Nursing Home Food Menus and pts actual % of [...] and reassess as needed or requested * Luvb-wk-Gire Time and Units: Time: 30 minutes/Units: 2 * Mikayla Nava, MS, RD, LDN l Sr. Genetics Dietitian l Clinical Dietitian, Advance [facility] l l [facility] * [facility] * Genetics Dietitian's Office: ; ; Email: [email or web address] * Genetics/Scheduling: ; ; Urgent Doctor On- Call: * [address] [address] * Clinical Inbound Call Center Agent Provider: Teresa Mohamud MD * . [address] Work Phone: 1(294) 371-791008-18-2023 Miscellaneous Notes* Telephone Encounter - Darlene Alvarez [...] calling back to check status. Routing to automation qa tester due to medication issues. Pamela Singh LPN * Telephone Encounter - Mackenzie Elmore LPN - 10/08/2022 3:21 PM EDT Staff member eneida Martell, dose of Lasix 20mg & Potassium 10 mEq today. Patient is to get medication every other day, it is one day early. Patient went to [facility] today, should be home within next30 minutes, Nursing Home has not receive a call re: Patient today. Please review & advise. Mackenzie Elmore LPN documented in this encounterAvita Health System [facility]08-16-2023 History of Present illness Narrative* Older, MOISES Zimmerman.CATERERS HELPER - 10/23/2022 2:53 PM EDT CC: Patient [...] INSTILL 2 SPRAYS IN EACH NOSTRIL DAILY Numwz-7-DPA-EPA-Fish Oil 1,000 mg (120 mg-180 mg) cap [...] TO AFFECTED AREA(S) ON LEGS AT BEDTIME gojvgxr-cwjxerikq-nwecpym D3 (OYSTER SHELL CALCIUM-VITAMIN D) 500 mg(1,250mg) [...] plan. Mika Kaplan APRN.CNP documented in this encounterAvita Health System [facility]08-16-2023 Miscellaneous Notes* Telephone Encounter - Candelaria Ball [...] you. Candelaria Ball LPN documented in this encounterAvita Health System [facility]08-03-2023 Miscellaneous Notes* Telephone Encounter - Teresa Ferrera RN - 10/10/2022 12:33 PM EDT Clarence Calderon with [facility] in [place] called in to verify that Pt was still under providers care. documented in this encounterAvita Health System [facility]06-19-2023 Miscellaneous Notes* Telephone Encounter - Isela Leyva [...] notify patient. Usha Zuniga documented in this encounterAvita Health System [facility]05-31-2023 Miscellaneous Notes* Telephone Encounter - Pascale Lorenzo LPN - 08/07/2022 8:17 AM EDT Patient has been identified by name and date of : No Patient phones for refill(s): Requested Prescriptions Pending Prescriptions Disp Refills fluticasone (FLONASE) 50 mcg/actuation nasal spray [Pharmacy Med Name: Fluticasone Propionate 50 MCG/ACT Suspension] 16 g 10 Sig: INSTILL 2 SPRAYS IN EACH NOSTRIL DAILY Dbwot-4-IJY-EPA-Fish Oil 1,000 mg (120 mg-180 mg) cap [Pharmacy Med Name: Baring- 3 1000 MG Capsule] 31 capsule 10 [...] you. Pascale Lorenzo LPN documented in this encounterAvita Health System [facility]05-11-2023 Miscellaneous Notes* Telephone Encounter - Pepper Royal [...] and advise. Pepper Royal documented in this encounterAvita Health System [facility]03-30-2023 Miscellaneous Notes* Telephone Encounter - Alexia Prater LPN - 06/06/2022 3:47 PM EDT Medication or Treatment Administration Consent form signed by Dr. Thakur. Contacated Anali the housemanager notified form is ready for pickup. Form taken to Medical records. documented in this encounterAvita Health System [facility]03-28-2023 Miscellaneous Notes* Telephone Encounter - Mackenzie Elmore [...] you. Mackenzie Elmore LPN documented in this encounterAvita Health System [facility]03-09-2023 Miscellaneous Notes* Telephone Encounter - Lillie Marshall [...] of Last Labs: 12/13/2021 documented in this encounterAvita Health System [facility]02-23-2023 History of Present illness Narrative* Marilee Thakur [...] a duplex near by her mother in [place] a couple years ago and is actually [...] cream ammonium lactate (LAC-HYDRIN) 12 % cream yjphgvi-ecgqwabap-fenruku D3 (OYSTER SHELL CALCIUM-VITAMIN D) 500 mg(1,250mg) [...] stockings Marilee Thakur MD documented in this encounterAvita Health System [facility]01-12-2023 History of Present illness Narrative* Mika Eusebio, CHURCH HISTORY PROFESSOR.CATERERS HELPER - 03/21/2022 1:18 PM EST CC: Patient [...] ON LEGS AT BEDTIME^Disp: 280 g^Rfl: 10 evufocn-evbsnkxkd-dbaxcoz D3 (OYSTER SHELL CALCIUM-VITAMIN D) 500 mg(1,250mg) [...] plan. Mika Kaplan APRN.CNP documented in this encounterAvita Health System [facility]11-29-2022 Miscellaneous Notes* Telephone Encounter - Pascale Lorenzo [...] you. Pascale Lorenzo LPN documented in this encounterAvita Health System [facility]11-22-2022 History of Present illness Narrative* Marilee Thakur [...] cream ammonium lactate (LAC-HYDRIN) 12 % cream tlmeafm-zbehautjg-aufkosq D3 (OYSTER SHELL CALCIUM-VITAMIN D) 500 mg(1,250mg) [...] Z72.820 Marilee Thakur MD documented in this encounterAvita Health System [facility]11-16-2022 Miscellaneous Notes* Telephone Encounter - Regan Neville Ma - 01/23/2022 3:05 PM EST Taken to medical records. Anali notified. Regan Neville Ma * Telephone Encounter - Candelaria Ball LPN - 01/22/2022 3:48 PM EST Patient caregiver Anali calling to check status of request for handicap placard rx renewal rx. * Telephone Encounter - Candelaria Ball LPN - 01/11/2022 8:11 AM EDT Patient home care chaplain Anali calling to check status of request. * Telephone Encounter - Eulalia Laureano RN - 01/07/2022 3:06 PM EDT Anali (mixing house operator) calls to request 2 handicap placards for patient. Anali will corn picker in medical records if provider agrees. Pended. Eulalia Laureano RN documented in this encounterAvita Health System [facility]10-06-2022 Miscellaneous Notes* Telephone Encounter - Pepper Walsh RN - 12/13/2021 11:01 AM EDT Clarence Calderon with [facility] calling to confirm PCP for patient. Information confirmed. Pepper Walsh RN documented in this encounterAvita Health System [facility]09-22-2022 Miscellaneous Notes* Telephone Encounter - María Avila Ma - 11/29/2021 2:29 PM EDT Anali, mixing house operator notified. * Telephone Encounter - Marilee Thakur [...] speak with PCP. Please call him at [phone] between 12-3 PM today. documented in this encounterAvita Health System [facility]09-01-2022 History of Present illness Narrative* PWS CLINIC * Deepali is a 42 year old female who has presented to the PWS multidisciplinary clinic at [facility]. She is accompanied by her mixing house operator, Anali. History was obtained by the patient, [...] past. * PCP: Dr. Marilee Thakur at [facility], fax number [phone], is currently seeing an SESSIONS CLERK named Older at this office * Interval [...] and Friday, where she works out (e.g., [employer], [employer]) half a day. She just received a [...] records - they may be accessible on [employer], and will hopefully be more available on Smart[employer]. * - Seeing Gynecology for OCP (for [...] * - We plan to call the group marketing vp Gayla to discuss her care, and will recommend the patient's mother come with her to future visits as well. * ROS negative if not mentioned above, pertinent positives in HPI. [address] Work Phone: 1(733) 722-230808-22-2022 History of Present illness Narrative* Marilee Thakur [...] cream ammonium lactate (LAC-HYDRIN) 12 % cream aranipg-cizknxtlh-setgsib D3 (OYSTER SHELL CALCIUM-VITAMIN D) 500 mg(1,250mg) [...] Marilee Thakur MD documented in this [facility]07-14-2022 Miscellaneous Notes* Telephone Encounter - Alexia Prater LPN - 09/20/2021 8:36 AM EDT Patient has been identified by name and date of : Yes Patient phones for refill(s): Pending Prescriptions Disp Refills POTASSIUM CHLORIDE ER 10 MEQ TABLET,EXTENDED RELEASE 45 tablet 2 Sig: Take one tablet on days when you are taking lasix. NAIMA: No Refused Prescriptions Disp Refills Fish Oil-Baring-3 Fatty Acids (FISH OIL) 340-1,000 mg cap 31 capsule 10 Sig: Take 1 capsule by mouth once daily. NAIMA: No levothyroxine (SYNTHROID) 100 mcg tablet 31 tablet 10 NAIMA: No Date of last office visit in primary care: 06/28/21 Please advise. Thank you. Alexia Prater LPN documented in this encounterAvita Health System [facility]06-28-2022 Miscellaneous Notes* Telephone Encounter - Alexia Lin [...] Alexia Lin MA documented in this [facility]06-24-2022 Miscellaneous Notes* Telephone Encounter - María [...] of office Th and Fri. Routing to SESSIONS CLERK. Yazan Franco LPN * Telephone Encounter - Annie Brand RN - 08/29/2021 1:42 PM EDT RODRÍGUEZ Crabtree @ [facility] calling to let PCP know patient was recertified for continued nursing visits 1 x/week for nine weeks for weekly skin checks. Asking for verbal saying Dr. Ross and will continue to follow orders. #[phone]. Annie Brand RN documented in this encounterAvita Health System [facility]06-13-2022 History of Present illness Narrative* Rae Kaplan [...] 2 PUFFS BY MOUTH TWICE DAILY( INSTRUCTED) *[facility] Lymphedema massage therapy IRAIDA 0.35 mg tablet [...] TO AFFECTED AREA(S) ON LEGS AT BEDTIME lshrhbc-xhecnkbdf-uoavftu D3 (OYSTER SHELL CALCIUM-VITAMIN D) 500 mg(1,250mg) [...] plan. Rae Kaplan APRN.CNP documented in this encounterAvita Health System [facility]06-13-2022 Instructions* Patient Instructions* Rae Kaplan APRN.CNP - 08/20/2021 3:59 PM EDT Keep area(s) clean and dry. Apply Lotrisone cream twice a day If any unusual pain, swelling, red streaks, pus, fever or other signs of worsening infection, call immediately. documented in this encounterAvita Health System [facility]06-07-2022 Miscellaneous Notes* Telephone Encounter - Alexia Lin [...] review. Alexia Lin MA documented in this encounterAvita Health System [facility]04-29-2022 Miscellaneous Notes* Telephone Encounter - Pascale Lorenzo LPN - 07/06/2021 5:01 PM EDT Order has been faxed. Pascale Lorenzo LPN * Telephone Encounter - Marilee Thakur MD - 07/06/2021 4:41 PM EDT Yes * Telephone Encounter - Lillie Marshall RN - 07/06/2021 11:15 AM EDT Vikki MAZA from [facility] calls and is asking if provider will write an order for Lymphedema massage therapy treatment? If agreeable please fax order to either: Or Lillie Marshall RN documented in this encounterAvita Health [facility]04-21-2022 Miscellaneous Notes* Telephone Encounter - Marilee Thakur [...] concern. Annie Brand RN documented in this encounterAvita Health System [facility]04-21-2022 History of Present illness Narrative* Marilee Thakur [...] cream ammonium lactate (LAC-HYDRIN) 12 % cream iniksgr-rhinlyemi-tzqnztl D3 (OYSTER SHELL CALCIUM-VITAMIN D) 500 mg(1,250mg) - 200 unit per tablet potassium chloride (K-TAB) 10 mEq tablet CERTAVITE-ANTIOXIDANT levothyroxine (SYNTHROID) 100 mcg tablet Gauze Bandage 2 X 2 bndg Desogestrel-Ethinyl Estradiol (APRI) 0.15-0.03 mg per tablet fluticasone (FLONASE) 50 mcg/actuation nasal spray Fish Oil-Baring-3 Fatty Acids (FISH OIL) 340-1,000 mg cap [...] shower Marilee Thakur MD documented in this encounterAvita Health [facility]04-15-2022 Miscellaneous Notes* Telephone Encounter - Kristie Khan Ma - 06/22/2021 8:57 AM EDT Brianna notified and verbalized understanding. Kristie Khan Ma * Telephone Encounter - Jacquelyn Allen APRN.OBED - 06/22/2021 8:53 AM EDT Agree with below. Jacquelyn Allen APRN.CNP * Telephone Encounter - Pamela Singh LPN - 06/22/2021 8:45 AM EDT Brianna Glasery with [facility] called and states they were contacted to have nursing comeinto the intermediate for pt weekly. This will be for skin issues and weight issues. Pt was identified with name and date of . Requesting the followin. verbal order to start care in the home weekly. Okay to leave a message 2. fax last OV for PCP - 04/23/21 to [phone]. This has been faxed. Pamela Singh LPN documented in this encounterAvita Health System [facility]04-07-2022 Miscellaneous Notes* Telephone Encounter - María Avila Ma - 06/14/2021 12:42 PM EDT Ready for corn picker in Medical Records. * Telephone Encounter - [...] workshop. Mima Parson LPN documented in this encounterAvita Health System [facility]03-30-2022 Miscellaneous Notes* Telephone Encounter - Alexia Aviles Ma - 06/06/2021 2:57 PM EDT senior brand manager notified * Telephone Encounter - Alexia Aviles Ma - 06/06/2021 2:56 PM EDT ----- Message from Marilee Thakur MD sent at 06/01/2021 5:32 PM EDT ----- Hip joint and synovium are normal documented in this encounterAvita Health System [facility]12-09-2021 NoteHNO ID: [id number] Author: Ricki Hirsch MD Service: ? Author [...] needed basis. This note was generated with Evolver software. It may contain incorrect words, spelling, and punctuation and that were not noted in review of the chart prior to signing. I spent 15 minutes in the visit, with more than 50% of the total acfd-mk-phpx time of the visit in counseling / coordination of care. Recommendations: #1 continue lymphedema pumping #2 continue lymphedema wraps #3 check with primary care physician and if no contraindications begin enteric-coated baby aspirin on a daily basis.[facility] 01-18-2021 NoteHNO ID: [id number] Author: Ricki Hirsch MD Service: ? Author [...] a month. This note was generated with Evolver software. It may contain incorrect words, spelling, and punctuation and that were not noted in review of the chart prior to signing. I spent 15 minutes in the visit, with more than 50% of the total lamn-kj-lhif time of the visit in counseling / coordination of care.[facility]11-08-2016 History of Past illness Narrative* Problem Noted Date Resolved Date Venous stasis ulcers 01/16/2016 06/17/2016 BMI 40.0-44.9, adult 12/14/2014 02/09/2015 BMI 50.0-59.9, adult 10/11/2013 12/14/2014 Other lymphedema 04/26/2013 12/14/2014 Mental status change 01/08/2013 12/13/2013 Overview: Transient mental status change; [facility], 12/09/12 Amenorrhea 06/18/2011 12/07/2015 Open wound [...] of this encounter (statuses as of 06/06/2021) [facility] History of Past illness Narrative* Problem Noted Date Resolved Date Venous stasis ulcers 01/16/2016 06/17/2016 BMI 40.0-44.9, adult 12/14/2014 02/09/2015 BMI 50.0-59.9, adult 10/11/2013 12/14/2014 Other lymphedema 04/26/2013 12/14/2014 Mental status change 01/08/2013 12/13/2013 Overview: Transient mental status change; [facility], 12/09/12 Amenorrhea 06/18/2011 12/07/2015 Open wound [...] of this encounter (statuses as of 06/14/2021) [facility]11[facility] History of Past illness Narrative* Problem Noted Date Resolved Date Venous stasis ulcers 01/16/2016 06/17/2016 BMI 40.0-44.9, adult 12/14/2014 02/09/2015 BMI 50.0-59.9, adult 10/11/2013 12/14/2014 Other lymphedema 04/26/2013 12/14/2014 Mental status change 01/08/2013 12/13/2013 Overview: Transient mental status change; [facility], 12/09/12 Amenorrhea 06/18/2011 12/07/2015 Open wound [...] of this encounter (statuses as of 06/22/2021) [facility]11[facility] History of Past illness Narrative* Problem Noted Date Resolved Date Venous stasis ulcers 01/16/2016 06/17/2016 BMI 40.0-44.9, adult 12/14/2014 02/09/2015 BMI 50.0-59.9, adult 10/11/2013 12/14/2014 Other lymphedema 04/26/2013 12/14/2014 Mental status change 01/08/2013 12/13/2013 Overview: Transient mental status change; [facility], 12/09/12 Amenorrhea 06/18/2011 12/07/2015 Open wound [...] of this encounter (statuses as of 06/28/2021) [facility] History of Past illness Narrative* Problem Noted Date Resolved Date Venous stasis ulcers 01/16/2016 06/17/2016 BMI 40.0-44.9, adult 12/14/2014 02/09/2015 BMI 50.0-59.9, adult 10/11/2013 12/14/2014 Other lymphedema 04/26/2013 12/14/2014 Mental status change 01/08/2013 12/13/2013 Overview: Transient mental status change; [facility], 12/09/12 Amenorrhea 06/18/2011 12/07/2015 Open wound [...] of this encounter (statuses as of 06/28/2021) [facility]11-08-2016 History of Past illness Narrative* Problem Noted Date Resolved Date Venous stasis ulcers 01/16/2016 06/17/2016 BMI 40.0-44.9, adult 12/14/2014 02/09/2015 BMI 50.0-59.9, adult 10/11/2013 12/14/2014 Other lymphedema 04/26/2013 12/14/2014 Mental status change 01/08/2013 12/13/2013 Overview: Transient mental status change; [facility], 12/09/12 Amenorrhea 06/18/2011 12/07/2015 Open wound [...] of this encounter (statuses as of 07/06/2021) [facility]11-08-2016 History of Past illness Narrative* Problem Noted Date Resolved Date Venous stasis ulcers 01/16/2016 06/17/2016 BMI 40.0-44.9, adult 12/14/2014 02/09/2015 BMI 50.0-59.9, adult 10/11/2013 12/14/2014 Other lymphedema 04/26/2013 12/14/2014 Mental status change 01/08/2013 12/13/2013 Overview: Transient mental status change; [facility], 12/09/12 Amenorrhea 06/18/2011 12/07/2015 Open wound [...] of this encounter (statuses as of 08/15/2021) [facility]11-[facility]2016 History of Past illness Narrative* Problem Noted Date Resolved Date Venous stasis ulcers 01/16/2016 06/17/2016 BMI 40.0-44.9, adult 12/14/2014 02/09/2015 BMI 50.0-59.9, adult 10/11/2013 12/14/2014 Other lymphedema 04/26/2013 12/14/2014 Mental status change 01/08/2013 12/13/2013 Overview: Transient mental status change; [facility], 12/09/12 Amenorrhea 06/18/2011 12/07/2015 Open wound [...] of this encounter (statuses as of 08/20/2021) [facility]11-[facility]2016 History of Past illness Narrative* Problem Noted Date Resolved Date Venous stasis ulcers 01/16/2016 06/17/2016 BMI 40.0-44.9, adult 12/14/2014 02/09/2015 BMI 50.0-59.9, adult 10/11/2013 12/14/2014 Other lymphedema 04/26/2013 12/14/2014 Mental status change 01/08/2013 12/13/2013 Overview: Transient mental status change; [facility], 12/09/12 Amenorrhea 06/18/2011 12/07/2015 Open wound [...] of this encounter (statuses as of 08/31/2021) [facility] History of Past illness Narrative* Problem Noted Date Resolved Date Venous stasis ulcers 01/16/2016 06/17/2016 BMI 40.0-44.9, adult 12/14/2014 02/09/2015 BMI 50.0-59.9, adult 10/11/2013 12/14/2014 Other lymphedema 04/26/2013 12/14/2014 Mental status change 01/08/2013 12/13/2013 Overview: Transient mental status change; [facility], 12/09/12 Amenorrhea 06/18/2011 12/07/2015 Open wound [...] of this encounter (statuses as of 09/05/2021) [facility] History of Past illness Narrative* Problem Noted Date Resolved Date Venous stasis ulcers 01/16/2016 06/17/2016 BMI 40.0-44.9, adult 12/14/2014 02/09/2015 BMI 50.0-59.9, adult 10/11/2013 12/14/2014 Other lymphedema 04/26/2013 12/14/2014 Mental status change 01/08/2013 12/13/2013 Overview: Transient mental status change; [facility], 12/09/12 Amenorrhea 06/18/2011 12/07/2015 Open wound [...] of this encounter (statuses as of 09/20/2021) [facility]2016 History of Past illness Narrative* Problem Noted Date Resolved Date Venous stasis ulcers 01/16/2016 06/17/2016 BMI 40.0-44.9, adult 12/14/2014 02/09/2015 BMI 50.0-59.9, adult 10/11/2013 12/14/2014 Other lymphedema 04/26/2013 12/14/2014 Mental status change 01/08/2013 12/13/2013 Overview: Transient mental status change; [facility], 12/09/12 Amenorrhea 06/18/2011 12/07/2015 Open wound [...] of this encounter (statuses as of 10/29/2021) [facility]11-[facility]2016 History of Past illness Narrative* Problem Noted Date Resolved Date Venous stasis ulcers 01/16/2016 06/17/2016 BMI 40.0-44.9, adult 12/14/2014 02/09/2015 BMI 50.0-59.9, adult 10/11/2013 12/14/2014 Other lymphedema 04/26/2013 12/14/2014 Mental status change 01/08/2013 12/13/2013 Overview: Transient mental status change; [facility], 12/09/12 Amenorrhea 06/18/2011 12/07/2015 Open wound [...] of this encounter (statuses as of 11/29/2021) [facility]11-[facility]2016 History of Past illness Narrative* Problem Noted Date Resolved Date Venous stasis ulcers 01/16/2016 06/17/2016 BMI 40.0-44.9, adult 12/14/2014 02/09/2015 BMI 50.0-59.9, adult 10/11/2013 12/14/2014 Other lymphedema 04/26/2013 12/14/2014 Mental status change 01/08/2013 12/13/2013 Overview: Transient mental status change; [facility], 12/09/12 Amenorrhea 06/18/2011 12/07/2015 Open wound [...] of this encounter (statuses as of 12/13/2021) [facility]11[facility]2016 History of Past illness Narrative* Problem Noted Date Resolved Date Venous stasis ulcers 01/16/2016 06/17/2016 BMI 40.0-44.9, adult 12/14/2014 02/09/2015 BMI 50.0-59.9, adult 10/11/2013 12/14/2014 Other lymphedema 04/26/2013 12/14/2014 Mental status change 01/08/2013 12/13/2013 Overview: Transient mental status change; [facility], 12/09/12 Amenorrhea 06/18/2011 12/07/2015 Open wound [...] of this encounter (statuses as of 01/23/2022) [facility]2016 History of Past illness Narrative* Problem Noted Date Resolved Date Venous stasis ulcers 01/16/2016 06/17/2016 BMI 40.0-44.9, adult 12/14/2014 02/09/2015 BMI 50.0-59.9, adult 10/11/2013 12/14/2014 Other lymphedema 04/26/2013 12/14/2014 Mental status change 01/08/2013 12/13/2013 Overview: Transient mental status change; [facility], 12/09/12 Amenorrhea 06/18/2011 12/07/2015 Open wound [...] of this encounter (statuses as of 01/29/2022) [facility]11[facility]2016 History of Past illness Narrative* Problem Noted Date Resolved Date Venous stasis ulcers 01/16/2016 06/17/2016 BMI 40.0-44.9, adult 12/14/2014 02/09/2015 BMI 50.0-59.9, adult 10/11/2013 12/14/2014 Other lymphedema 04/26/2013 12/14/2014 Mental status change 01/08/2013 12/13/2013 Overview: Transient mental status change; [facility], 12/09/12 Amenorrhea 06/18/2011 12/07/2015 Open wound [...] of this encounter (statuses as of 02/06/2022) [facility]2016 History of Past illness Narrative* Problem Noted Date Resolved Date Venous stasis ulcers 01/16/2016 06/17/2016 BMI 40.0-44.9, adult 12/14/2014 02/09/2015 BMI 50.0-59.9, adult 10/11/2013 12/14/2014 Other lymphedema 04/26/2013 12/14/2014 Mental status change 01/08/2013 12/13/2013 Overview: Transient mental status change; [facility], 12/09/12 Amenorrhea 06/18/2011 12/07/2015 Open wound [...] of this encounter (statuses as of 03/22/2022) [facility] History of Past illness Narrative* Problem Noted Date Resolved Date Venous stasis ulcers 01/16/2016 06/17/2016 BMI 40.0-44.9, adult 12/14/2014 02/09/2015 BMI 50.0-59.9, adult 10/11/2013 12/14/2014 Other lymphedema 04/26/2013 12/14/2014 Mental status change 01/08/2013 12/13/2013 Overview: Transient mental status change; [facility], 12/09/12 Amenorrhea 06/18/2011 12/07/2015 Open wound [...] of this encounter (statuses as of 05/02/2022) [facility]2016 History of Past illness Narrative* Problem Noted Date Resolved Date Venous stasis ulcers 01/16/2016 06/17/2016 BMI 40.0-44.9, adult 12/14/2014 02/09/2015 BMI 50.0-59.9, adult 10/11/2013 12/14/2014 Other lymphedema 04/26/2013 12/14/2014 Mental status change 01/08/2013 12/13/2013 Overview: Transient mental status change; [facility], 12/09/12 Amenorrhea 06/18/2011 12/07/2015 Open wound [...] of this encounter (statuses as of 05/17/2022) [facility]2016 History of Past illness Narrative* Problem Noted Date Resolved Date Venous stasis ulcers 01/16/2016 06/17/2016 BMI 40.0-44.9, adult 12/14/2014 02/09/2015 BMI 50.0-59.9, adult 10/11/2013 12/14/2014 Other lymphedema 04/26/2013 12/14/2014 Mental status change 01/08/2013 12/13/2013 Overview: Transient mental status change; [facility], 12/09/12 Amenorrhea 06/18/2011 12/07/2015 Open wound [...] of this encounter (statuses as of 06/06/2022) [facility]2016 History of Past illness Narrative* Problem Noted Date Resolved Date Venous stasis ulcers 01/16/2016 06/17/2016 BMI 40.0-44.9, adult 12/14/2014 02/09/2015 BMI 50.0-59.9, adult 10/11/2013 12/14/2014 Other lymphedema 04/26/2013 12/14/2014 Mental status change 01/08/2013 12/13/2013 Overview: Transient mental status change; [facility], 12/09/12 Amenorrhea 06/18/2011 12/07/2015 Open wound [...] of this encounter (statuses as of 07/18/2022) [facility]2016 History of Past illness Narrative* Problem Noted Date Resolved Date Venous stasis ulcers 01/16/2016 06/17/2016 BMI 40.0-44.9, adult 12/14/2014 02/09/2015 BMI 50.0-59.9, adult 10/11/2013 12/14/2014 Other lymphedema 04/26/2013 12/14/2014 Mental status change 01/08/2013 12/13/2013 Overview: Transient mental status change; [facility], 12/09/12 Amenorrhea 06/18/2011 12/07/2015 Open wound [...] of this encounter (statuses as of 08/08/2022) [facility]11[facility]2016 History of Past illness Narrative* Problem Noted Date Resolved Date Venous stasis ulcers 01/16/2016 06/17/2016 BMI 40.0-44.9, adult 12/14/2014 02/09/2015 BMI 50.0-59.9, adult 10/11/2013 12/14/2014 Other lymphedema 04/26/2013 12/14/2014 Mental status change 01/08/2013 12/13/2013 Overview: Transient mental status change; [facility], 12/09/12 Amenorrhea 06/18/2011 12/07/2015 Open wound [...] of this encounter (statuses as of 08/23/2022) [facility]11[facility]2016 History of Past illness Narrative* Problem Noted Date Resolved Date Venous stasis ulcers 01/16/2016 06/17/2016 BMI 40.0-44.9, adult 12/14/2014 02/09/2015 BMI 50.0-59.9, adult 10/11/2013 12/14/2014 Other lymphedema 04/26/2013 12/14/2014 Mental status change 01/08/2013 12/13/2013 Overview: Transient mental status change; [facility], 12/09/12 Amenorrhea 06/18/2011 12/07/2015 Open wound [...] of this encounter (statuses as of 08/27/2022) [facility]2016 History of Past illness Narrative* Problem Noted Date Diagnosed Date Resolved Date Venous stasis ulcers 01/16/2016 017 BMI 40.0-44.9, adult 12/14/2014 015 BMI 50.0-59.9, adult 10/11/2013 015 Other lymphedema 04/26/2013 12/14/2014 Mental status change 01/08/2013 014 Overview: Transient mental status change; [facility], 12/09/12 Amenorrhea 06/18/2011 12/07/2015 Open wound [...] of this encounter (statuses as of 10/10/2022) [facility] History of Past illness Narrative* Problem Noted Date Diagnosed Date Resolved Date Venous stasis ulcers 01/16/2016 017 BMI 40.0-44.9, adult 12/14/2014 015 BMI 50.0-59.9, adult 10/11/2013 015 Other lymphedema 04/26/2013 12/14/2014 Mental status change 01/08/2013 014 Overview: Transient mental status change; [facility], 12/09/12 Amenorrhea 06/18/2011 12/07/2015 Open wound [...] of this encounter (statuses as of 10/11/2022) [facility] History of Past illness Narrative* Problem Noted Date Diagnosed Date Resolved Date Venous stasis ulcers 01/16/2016 017 BMI 40.0-44.9, adult 12/14/2014 015 BMI 50.0-59.9, adult 10/11/2013 015 Other lymphedema 04/26/2013 12/14/2014 Mental status change 01/08/2013 014 Overview: Transient mental status change; [facility], 12/09/12 Amenorrhea 06/18/2011 12/07/2015 Open wound [...] of this encounter (statuses as of 10/24/2022) [facility]11[facility]2016 History of Past illness Narrative* Problem Noted Date Diagnosed Date Resolved Date Venous stasis ulcers 01/16/2016 017 BMI 40.0-44.9, adult 12/14/2014 015 BMI 50.0-59.9, adult 10/11/2013 015 Other lymphedema 04/26/2013 12/14/2014 Mental status change 01/08/2013 014 Overview: Transient mental status change; [facility], 12/09/12 Amenorrhea 06/18/2011 12/07/2015 Open wound [...] of this encounter (statuses as of 10/25/2022) [facility]2016 History of Past illness Narrative* Problem Noted Date Diagnosed Date Resolved Date Venous stasis ulcers 01/16/2016 017 BMI 40.0-44.9, adult 12/14/2014 015 BMI 50.0-59.9, adult 10/11/2013 015 Other lymphedema 04/26/2013 12/14/2014 Mental status change 01/08/2013 014 Overview: Transient mental status change; [facility], 12/09/12 Amenorrhea 06/18/2011 12/07/2015 Open wound [...] of this encounter (statuses as of 10/29/2022) [facility]2016 History of Past illness Narrative* Problem Noted Date Diagnosed Date Resolved Date Venous stasis ulcers 01/16/2016 017 BMI 40.0-44.9, adult 12/14/2014 015 BMI 50.0-59.9, adult 10/11/2013 015 Other lymphedema 04/26/2013 12/14/2014 Mental status change 01/08/2013 014 Overview: Transient mental status change; [facility], 12/09/12 Amenorrhea 06/18/2011 12/07/2015 Open wound [...] of this encounter (statuses as of 12/14/2022) [facility]2016 History of Past illness Narrative* Problem Noted Date Diagnosed Date Resolved Date Venous stasis ulcers 01/16/2016 017 BMI 40.0-44.9, adult 12/14/2014 015 BMI 50.0-59.9, adult 10/11/2013 015 Other lymphedema 04/26/2013 12/14/2014 Mental status change 01/08/2013 014 Overview: Transient mental status change; [facility], 12/09/12 Amenorrhea 06/18/2011 12/07/2015 Open wound [...] of this encounter (statuses as of 01/21/2023) [facility]2016 History of Past illness Narrative* Problem Noted Date Diagnosed Date Resolved Date Venous stasis ulcers 01/16/2016 017 BMI 40.0-44.9, adult 12/14/2014 015 BMI 50.0-59.9, adult 10/11/2013 015 Other lymphedema 04/26/2013 12/14/2014 Mental status change 01/08/2013 014 Overview: Transient mental status change; [facility], 12/09/12 Amenorrhea 06/18/2011 12/07/2015 Open wound [...] of this encounter (statuses as of 02/04/2023) [facility] History of Past illness Narrative* Problem Noted Date Diagnosed Date Resolved Date Venous stasis ulcers 01/16/2016 017 BMI 45.0-49.9, adult 02/09/2015 024 BMI 40.0-44.9, adult 12/14/2014 015 BMI 50.0-59.9, adult 10/11/2013 015 Other lymphedema 04/26/2013 12/14/2014 Mental status change 01/08/2013 014 Overview: Transient mental status change; [facility], 12/09/12 Amenorrhea 06/18/2011 12/07/2015 Open wound [...] of this encounter (statuses as of 05/30/2023) [facility] History of Past illness Narrative* Problem Noted Date Diagnosed Date Resolved Date Venous stasis ulcers 01/16/2016 017 BMI 45.0-49.9, adult 02/09/2015 024 BMI 40.0-44.9, adult 12/14/2014 015 BMI 50.0-59.9, adult 10/11/2013 015 Other lymphedema 04/26/2013 12/14/2014 Mental status change 01/08/2013 014 Overview: Transient mental status change; [facility], 12/09/12 Amenorrhea 06/18/2011 12/07/2015 Open wound [...] of this encounter (statuses as of 06/10/2023) [facility] History of Past illness Narrative* Problem Noted Date Diagnosed Date Resolved Date Venous stasis ulcers 01/16/2016 017 BMI 45.0-49.9, adult 02/09/2015 024 BMI 40.0-44.9, adult 12/14/2014 015 BMI 50.0-59.9, adult 10/11/2013 015 Other lymphedema 04/26/2013 12/14/2014 Mental status change 01/08/2013 014 Overview: Transient mental status change; [facility], 12/09/12 Amenorrhea 06/18/2011 12/07/2015 Open wound [...] of this encounter (statuses as of 06/13/2023) [facility] No data available for this section [facility] Evaluation note* Diagnosis Prader-Willi syndrome- Primary SOB (shortness of breath) Shortness of breath Physical therapy evaluation, initial Other specified examination [facility] Diagnosis Lymphedema- Primary Other lymphedema Prader-Willi syndrome [facility] Diagnosis Skin ulcer of left thigh, limited to breakdown of skin (HCC)- Primary [facility] Diagnosis Lymphedema Other lymphedema [facility] Diagnosis Prader-Willi syndrome- Primary Skin ulcer, limited to breakdown of skin (HCC) Pedal edema Edema Mild persistent asthma without complication Unspecified asthma Obstructive sleep apnea syndrome Obstructive sleep apnea (adult) (pediatric) [facility] Diagnosis Prader-Willi syndrome- Primary Lipid screening Screening for lipoid disorders Encounter for screening for diabetes mellitus Screening for diabetes mellitus Vitamin D deficiency Unspecified vitamin D deficiency Elevated blood sugar Other abnormal glucose Hypothyroidism, unspecified type [facility] [place] [facility] Diagnosis Obstructive sleep apnea syndrome- Primary Obstructive sleep apnea (adult) (pediatric) Encounter for immunization Need for other specified prophylactic vaccination against single bacterial disease Mild intermittent asthma without complication Unspecified asthma Acquired hypothyroidism Unspecified hypothyroidism Lymphedema of right lower extremity Lymphedema of left lower extremity Sleep deprivation Problems related to lack of adequate sleep [facility] [place] [facility] Diagnosis Lymphedema Other lymphedema [facility] [place] [facility]* Diagnosis Bilateral chronic knee pain- Primary Pain in joint, lower leg Acute cough [facility] [place] [facility]* Diagnosis Annual physical exam- Primary Routine general medical examination at a health care facility 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 Obstructive sleep apnea syndrome Obstructive sleep apnea (adult) (pediatric) Mild intermittent asthma without complication Unspecified asthma Acquired hypothyroidism Unspecified hypothyroidism Lymphedema of left lower extremity [facility] [place] [facility]* Diagnosis 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 Bee allergy status Allergy to insects and arachnids [facility] [place] [facility]* Diagnosis Onset Date Resolution Status Menorrhagia with regular cycle acute Encounter for routine gynecological examination noneactive [facility] Work Phone: Evaluation note* Diagnosis Strain of lumbar region, subsequent encounter [facility] this encounter [facility] [place] [facility]* Diagnosis Strain of lumbar region, subsequent encounter [facility] [place] [facility]* Diagnosis Medication management Encounter for long-term (current) use of other medications Acquired hypothyroidism Unspecified hypothyroidism [facility] [place] [facility]* Diagnosis Lymphedema- Primary Other lymphedema Obstructive sleep apnea syndrome Obstructive sleep apnea (adult) (pediatric) Acquired hypothyroidism Unspecified hypothyroidism Mild intermittent asthma without complication Unspecified asthma [facility] [place] [facility]* Diagnosis Bronchitis Bronchitis, not specified as acute or chronic documented [facility] this [facility] [place] [facility]* Diagnosis 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 Bee allergy status Allergy to insects and arachnids documented [facility] [place] [facility]* Diagnosis Hypothalamic hypogonadism [...] Edema, unspecified type [facility] Diagnosis Hypothalamic hypogonadism (HCC)- Primary [...] Primary Other lymphedema [facility]* Diagnosis Hypothalamic hypogonadism (HCC)- Primary [...] left lower quadrant [facility]* Diagnosis Hypothalamic hypogonadism (HCC)- Primary [...] of other medications [facility] Diagnosis Hypothalamic hypogonadism (HCC)- Primary [...] right lower extremity [facility] Diagnosis Hypothalamic hypogonadism (HCC)- Primary [...] Heart disease, unspecified [facility] Diagnosis Acute on chronic right-sided heart failure- Primary Dyspnea on exertion Other dyspnea and respiratory abnormality Morbid obesity (Multi) Morbid obesity Prader-Willi syndrome (HHS-HCC) Prader-Willi syndrome Shortness of breath Bilateral lower extremity edema Pulmonary hypertension (Multi) Other chronic pulmonary heart diseases documented in this encounter [facility] Work Phone: Evaluation note* Diagnosis Dyspnea on exertion Other dyspnea and respiratory abnormality Bilateral lower extremity edema documented in this encounter [facility] Work Phone: Evaluation note* Diagnosis Hypothalamic [...] disorders Anasarca Edema [facility] Diagnosis Hypothalamic hypogonadism (HCC)- Primary [...] disorders Prader-Willi syndrome [facility] Diagnosis Hypothalamic hypogonadism (HCC)- Primary [...] hypothyroidism Unspecified hypothyroidism [facility] [place] [facility]* Diagnosis Hypothalamic hypogonadism [...] lymphedema Prader-Willi syndrome [facility] Diagnosis Hypothalamic hypogonadism (HCC)- Primary [...] Hematuria, unspecified type [facility] Diagnosis Hypothalamic hypogonadism (HCC)- Primary [...] lymphedema Prader-Willi syndrome [facility] Diagnosis Chronic right-sided heart failure- Primary Congestive heart failure, unspecified Dyspnea on exertion Other dyspnea and respiratory abnormality Morbid obesity (Multi) Morbid obesity Prader-Willi syndrome (HHS-HCC) Prader-Willi syndrome Shortness of breath Bilateral lower extremity edema documented in this encounter [facility] Work Phone: Evaluation note* Diagnosis Hypothalamic [...] Primary Unspecified asthma [facility] [place] [facility]* Diagnosis Hypothalamic hypogonadism [...] unspecified abdominal location [facility] Diagnosis Hyperglycemia- Primary Other abnormal glucose Prader-Willi syndrome (HHS-HCC) Prader-Willi syndrome Hypothyroidism, unspecified type Hyperlipidemia, unspecified hyperlipidemia type Class 3 severe obesity with serious comorbidity and body mass index (BMI) of 50.0 to 59.9 in adult, unspecified obesity type documented in this encounter [facility] Work Phone: Evaluation note* Diagnosis Hypothalamic [...] heart failure (HCC) [facility] Diagnosis Chronic right-sided heart failure- Primary Congestive heart failure, unspecified Right ventricular dysfunction Unspecified heart disease Prader-Willi syndrome ([facility]) Prader-Willi syndrome Bilateral lower extremity edema documented in this encounter [facility] Work Phone: Evaluation note* Diagnosis Hypothalamic [...] soft tissue, unspecified [facility] Sia is a 40 y/o female with history of PWS. * She was last seen in clinic in June of 2020. * At that time intermediate was observing food stealing behaviors. * Since last visit she moved in August of last year, though mixing house operator is the same. * She does have a roommate. * She is present with mixing house operator Anali today. * She goes to mom's [...] * L - likes crab and shrimp, tanzanian chicken; salad; bread * S - after [...] 0.8 gm pro/kg DBW ( * 38gm) [facility] 1500 Work Phone: History of Present illness [...] other weekend. When visiting her mom, the intermediate packs her food and medicine for her to bring. Patient reports that her mom has a camera at home so she can monitor how much food Cristina gets when she is at her moms house. Cristina's mixing house operator also reported that the fride, freezer and pantry at the intermediate is locked and Cristina has no way of getting any outside food. She does currently take a MVI with Iron as well as Vit D and fish oil. Her most recent labs are from 2020. [facility] [address] DO Work Phone: History of [...] sauerkraut if she is still hungry * -mixing house operator also reports that they do have things [...] other weekend. When visiting her mom, the intermediate packs her food and medicine for her to bring. Patient reports that her mom has a camera at home so she can monitor how much food Cristina gets when she is at her moms house. Cristina's mixing house operator also reported that the fride, freezer and pantry at the intermediate is locked and Cristina has no way of getting any outside food. She does currently take a MVI with Iron as well as Vit D and fish oil. Her most recent labs are from 2020. [facility] [employer] Work Phone: Hospital Discharge instructions No data available for this section [facility] Progress note No data available for this section [facility] Reason for referral (narrative)* Outpatient Procedure (Urgent) - Closed Specialty Diagnoses / Procedures Referred By Hannah grimm Referred To [facility] Diagnoses Pain of left lower extremity Edema, unspecified type Procedures US LEG VEIN DVT UNL VAS LAB DUP-SCAN XTR VEINS UNILATERAL/LIMITED STUDY Mika Kaplan APRN.CATERERS HELPER [address] [place] [address] [facility] [place] [address] [place] [id number] Referral ID Status Reason Start Date Expiration Date V isits Requested Visits Authorized [id number] Closed Auto-Generate d Referral 11/13/2023 11/12/2024 1 1 [facility] for referral (narrative)* Diagnostic Procedure Only (Routine) - Closed Specialty Diagnoses / Procedures Referred By Hannah grimm Referred To Contact US IMAGING Diagnoses Left groin pain Procedures US HIP LT US COMPL JOINT R-T W/IMAGE DOCUMENTATION Marilee Thakur MD [address] [place] [address] [place] [address] Referral ID Status Reason Start Date Expiration Date V isits Requested Visits Authorized [id number] Closed Auto-Generate d Referral 04/23/2021 05/23/2022 1 1 [facility] for referral (narrative)* Diagnostic Procedure Only (Routine) - Authorized Specialty Diagnoses / Procedures Referred By Contac t Referred To Contact US IMAGING Diagnoses Abdominal mass, unspecified abdominal location Procedures US SOFT TISSUE ABDOMEN US ABDOMINAL REAL TIME W/IMAGE LIMITED Mika Kaplan APRN.CNP [address] [place] [address] [place] [address] Referral ID Status Reason Start Date Expiration Date Visits Requested Visits Authorized [id number] Authorized Auto-Generat ed Referral 04/01/2024 05/01/2025 1 1 [facility] for visit Narrative* Diagnostic Procedure Only (Routine) - Closed Specialty Diagnoses / Procedures Referred By Contac t Referred To Contact US IMAGING Diagnoses Left groin pain Procedures US HIP LT US COMPL JOINT R-T W/IMAGE DOCUMENTATION Marilee Thaukr MD [address] [place] [address] [place] [address] Referral ID Status Reason Start Date Expiration Date V isits Requested Visits Authorized [id number] Closed Auto-Generate d Referral 04/23/2021 05/23/2022 1 1 [facility] for visit Narrative* Consultation (Routine) - Authorized Specialty Diagnoses / Procedures Referred By Contac t Referred To Contact Cardiology Diagnoses [place] [address] [address] [facility] [place] [address] Phone: tel: fax: Referral ID Status Reason Start Date Expiration Date Visits Requested Visits Authorized [id number] Authorized Specialty Services Required 12/04/2023 12/03/2024 1 1 [facility] Work Phone: Reason for visit Narrative* CV Imaging (Routine) - Authorized Specialty Diagnoses / Procedures Referred By Hannah grimm Referred To Contact Cardiology Diagnoses Dyspnea on exertion Bilateral lower extremity edema Procedures Transthoracic Echo Complete WA ECHO TTHRC R-T 2D W/WOM-MODE COMPL SPEC&COLR D Isi Goodman MD [address] [employer] [address] [place] [address] Phone: tel: fax: Referral ID Status Reason Start Date Expiration Date Visits Requested Visits Authorized [id number] Authorized Perform Procedure 01/19/2025 1 1 [facility] Work Phone: Reason for visit Narrative* Consultation (Routine) - Authorized Specialty Diagnoses / Procedures Referred By Hannah grimm Referred To Contact Cardiology Diagnoses Dyspnea on exertion Morbid obesity (Multi) Prader-Willi syndrome ([facility]) Shortness of breath Bilateral lower extremity edema Procedures Follow Up In Cardiology Isi Goodman MD [address] [address] [place] [address] Phone: tel: fax: Referral ID Status Reason Start Date Expiration Date V isits Requested Visits Authorized [id number] Authorized 01/20/2024 01/19/2025 1 1 [facility] Work Phone: Summary Purpose Family History [...] No May 10, 2019 8:38pm Power of Hardware Trainer No May 09 0 8:38pm Chief Complaint Patient is here for a follow up visit for prader willi syndrome* Follow up * Accompanied by director of home care hospice. Reason for Referral Specialty Diagnoses / Procedures Referred By Hannah grimm Referred To Contact [facility] Diagnoses Physical therapy evaluation, initial Procedures CONSULT TO PHYSICAL THERAPY PHYSICAL THERAPY EVALUATION HIGH COMPLEX 45 MINS Marilee Thakur MD [address] [place] [address] [facility] [address] [address] Referral ID Status Reason Start Date Expiration Date Visits Requested Visits Authorized [id number] Authorized PCP Requested Referral Auto-Generate d Referral 06/28/2021 06/28/2022 99 99 Specialty Diagnoses / Procedures Referred By Hannah grimm Referred To Contact [facility] Diagnoses Prader-Willi syndrome SOB (shortness of breath) Procedures ECHO ECHO TTHRC R-T 2D W/WOM-MODE COMPL SPEC&COLR D Marilee Thakur MD [address] [place] [address] [facility] [address] [address] Referral ID Status Reason Start Date Expiration Date Visits Requested Visits Authorized [id number] Authorized Auto-Generat ed Referral 06/28/2021 06/28/2022 1 1 Specialty Diagnoses / Procedures Referred By Hannah grimm Referred To Contact [facility] Diagnoses Lymphedema Procedures CONSULT TO LYMPHEDEMA THERAPY OFFICE/OUTPATIENT [facility] MDM 60 MINUTES Marilee Thakur MD [address] [place] [address] [facility] [place] [address] [place] [address] Referral ID Status Reason Start Date Expiration Date Visits Requested Visits Authorized [id number] Authorized Auto-Generat ed Referral 11/18/2023 11/17/2024 99 99 Specialty Diagnoses / Procedures Referred By Contac t Referred To Contact Vascular Surgery Diagnoses Lymphedema Prader-Willi syndrome Procedures CONSULT TO VASCULAR SURGERY OFFICE/OUTPATIENT [facility] 60 MINUTES Marilee Thakur MD [address] [place] [address] Referral ID Status Reason Start Date Expiration Date Visits Requested Visits Authorized [id number] Authorized PCP Requested Referral 02/16/2024 02/15/2025 1 1 Specialty Diagnoses / Procedures Referred By Contac t Referred To Contact Vascular Medicine Diagnoses Lymphedema Prader-Willi syndrome Procedures CONSULT TO VASCULAR MEDICINE OFFICE/OUTPATIENT [facility] 60 MINUTES Marilee Thakur MD [address] [place] [address] Referral ID Status Reason Start Date Expiration Date Visits Requested Visits Authorized [id number] Authorized PCP Requested Referral 02/16/2024 02/15/2025 1 1 Specialty Diagnoses / Procedures Referred By Contac t Referred To Contact Diagnoses Allergic to bees Bee allergy status Rajesh Corona MD [address] [place] [address] Referral ID Status Reason Start Date Expiration Date V isits Requested Visits Authorized [id number] Pending Review 1 1 Specialty Diagnoses / Procedures Referred By Contac t Referred To Contact Diagnoses Mild intermittent asthma without complication Marilee Thakur MD [address] [place] [address] Referral ID Status Reason Start Date Expiration Date V isits Requested Visits Authorized [id number] Authorized 04/12/2024 04/11/2025 1 1 Chief Complaint and Reason for Visit Chief Complaint 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 Reason for Visit Menorrhagia with reg ular cycle Encounter for routine gynecological examination Additional Source Comments INFORMATION SOURCE (unrecogn ized section and content) DATE CREATED AUTHOR 09/02/2017 [facility] DATE CREATED AUTHOR AUTHOR'S ORGANIZ ATION 02/16/2021 [facility] DATE CREATED AUTHOR AUTHOR'S ORGANIZ ATION 12/12/2022 [employer] DATE CREATED AUTHOR AUTHOR'S ORGANIZ ATION 01/23/2024 [facility] DATE CREATED AUTHOR AUTHOR'S ORGANIZ ATION 03/29/2024 [facility] DATE CREATED AUTHOR AUTHOR'S ORGANIZ ATION 05/08/2024 [facility] DATE CREATED AUTHOR AUTHOR'S ORGANIZ ATION 05/18/2024 [facility] DATE CREATED AUTHOR AUTHOR'S ORGANIZ ATION 06/01/2024 [facility] DATE CREATED AUTHOR AUTHOR'S ORGANIZ ATION 06/19/2024 [facility] DATE CREATED AUTHOR AUTHOR'S ORGANIZ ATION 06/29/2024 [facility] DATE CREATED AUTHOR AUTHOR'S ORGANIZ ATION 07/07/2024 [facility] DATE CREATED AUTHOR AUTHOR'S ORGANIZ ATION 08/12/2024 [facility] Reason for Visit (unrecogniz ed section and content) Reason Comments Results Reason Comments Forms Reason Comments [facility] verbal order ne eded Reason [...] Request 11/24/2023 Reason Comments recert patient for intermediate servi ce Reason Comments weight gain Reason Comments Medication Question Reason Onset Date Comments Transition Of Care 01/06/2024 [facility] Discharge 01/01/25 Reason Comments Patient Update weight increasing Reason Comments Hospital F/U And ER visit on 12/10 04/02 Reason Comments weight increase Reason Onset Date Comments Transition Of Care 01/22/2024 [facility] Follow-up Day 20 Reason Comments Request for referral to PT/OT Reason Onset Date Comments Refill Request 02/02/2024 Reason Comments Home Health Orders Reason Comments Hospital F/[facility] 01/26/24 dx CHF Reason Comments [facility]-verbal orders Reason Comments Recheck Medication Reason Comments [facility], verbal order Reason Comments Order Request Reason Comments Hospital F/U [facility] 02/28/24 for pul monary edema and severe pain right shoulder/under arm Medication Problem Bumex is causing hea dache and severe diarrhea and Jayshree is refusing [...] Procedures CONSULT TO VASCULAR SURGERY OFFICE/OUTPATIENT [facility] 60 MINUTES Marilee Thakur MD [address] [place] [address] Referral ID Status Reason Start Date Expiration Date V isits Requested Visits Authorized [id number] Closed PCP Requested Referral 02/16/2024 02/15/2025 1 1 Reason Comments [facility] Reason Comments Medication Problem Reason Comments Radiology US Specialty Diagnoses / Procedures Referred By Hannah Referred To Contact US IMAGING Diagnoses Abdominal mass, unspecified abdominal location Procedures US SOFT TISSUE ABDOMEN US ABDOMINAL REAL TIME W/IMAGE LIMITED Eusebio MikaMOISES.CATERERS HELPER [address] [place] [address] [place] [id number] Referral ID Status Reason Start Date Expiration Date V isits Requested Visits Authorized [id number] Closed Auto-Generate d Referral 04/01/2024 05/01/2025 1 1 Reason Comments New Patient Visit Specialty Diagnoses / Procedures Referred By Contuzma t Referred To Contact Endocrinology Diagnoses Prader-Willi syndrome ([facility]) [place] [address] [address] [facility] [place] [address] Phone: tel: fax: Referral ID Status Reason Start Date Expiration Date Visits Requested Visits Authorized [id number] Authorized Specialty Services Required 12/04/2023 12/03/2024 1 [...] or prosecute any alcohol or drug abuse patient.[facility] the event this information is protected by the Federal Confidentiality of Alcohol and Drug Abuse Patient Records regulations: The Federal rules restrict any use of the information to criminally investigate or prosecute any alcohol or drug abuse patient.[facility] the event this information is protected by the Federal Confidentiality of Alcohol and Drug Abuse Patient Records regulations: The Federal rules restrict any use of the information to criminally investigate or prosecute any alcohol or drug abuse patient.[facility] the event this information is protected by the Federal Confidentiality of Alcohol and Drug Abuse Patient Records regulations: The Federal rules restrict any use of the information to criminally investigate or prosecute any alcohol or drug abuse patient.[facility] Hospital[facility] the event this information is protected by the Federal Confidentiality of Alcohol and Drug Abuse Patient Records regulations: The Federal rules restrict any use of the information to criminally investigate or prosecute any alcohol or drug abuse patient.[facility] HospitalIn the event this information is protected by the Federal Confidentiality of Alcohol and Drug Abuse Patient Records regulations: The Federal rules restrict any use of the information to criminally investigate or prosecute any alcohol or drug abuse patient.[facility] HospitalIn the event this information is protected by the Federal Confidentiality of Alcohol and Drug Abuse Patient Records regulations: The Federal rules restrict any use of the information to criminally investigate or prosecute any alcohol or drug abuse patient.[facility] Hospital[facility] the event this information is protected by the Federal Confidentiality of Alcohol and Drug Abuse Patient Records regulations: The Federal rules restrict any use of the information to criminally investigate or prosecute any alcohol or drug abuse patient.[facility] HospitalIn the event this information is protected by the Federal Confidentiality of Alcohol and Drug Abuse Patient Records regulations: The Federal rules restrict any use of the information to criminally investigate or prosecute any alcohol or drug abuse patient.[facility] HospitalIn the event this information is protected by the Federal Confidentiality of Alcohol and Drug Abuse Patient Records regulations: The Federal rules restrict any use of the information to criminally investigate or prosecute any alcohol or drug abuse patient.[facility] HospitalIn the event this information is protected by the Federal Confidentiality of Alcohol and Drug Abuse Patient Records regulations: The Federal rules restrict any use of the information to criminally investigate or prosecute any alcohol or drug abuse patient.[facility] HospitalIn the event this information is protected by the Federal Confidentiality of Alcohol and Drug Abuse Patient Records regulations: The Federal rules restrict any use of the information to criminally investigate or prosecute any alcohol or drug abuse patient.[facility] HospitalIn the event this information is protected by the Federal Confidentiality of Alcohol and Drug Abuse Patient Records regulations: The Federal rules restrict any use of the information to criminally investigate or prosecute any alcohol or drug abuse patient.[facility] HospitalIn the event this information is protected by the Federal Confidentiality of Alcohol and Drug Abuse Patient Records regulations: The Federal rules restrict any use of the information to criminally investigate or prosecute any alcohol or drug abuse patient.[facility] HospitalIn the event this information is protected by the Federal Confidentiality of Alcohol and Drug Abuse Patient Records regulations: The Federal rules restrict any use of the information to criminally investigate or prosecute any alcohol or drug abuse patient.[facility] HospitalIn the event this information is protected by the Federal Confidentiality of Alcohol and Drug Abuse Patient Records regulations: The Federal rules restrict any use of the information to criminally investigate or prosecute any alcohol or drug abuse patient.[facility] HospitalIn the event this information is protected by the Federal Confidentiality of Alcohol and Drug Abuse Patient Records regulations: The Federal rules restrict any use of the information to criminally investigate or prosecute any alcohol or drug abuse patient.[facility] HospitalIn the event this information is protected by the Federal Confidentiality of Alcohol and Drug Abuse Patient Records regulations: The Federal rules restrict any use of the information to criminally investigate or prosecute any alcohol or drug abuse patient.[facility] HospitalIn the event this information is protected by the Federal Confidentiality of Alcohol and Drug Abuse Patient Records regulations: The Federal rules restrict any use of the information to criminally investigate or prosecute any alcohol or drug abuse patient.[facility] HospitalIn the event this information is protected by the Federal Confidentiality of Alcohol and Drug Abuse Patient Records regulations: The Federal rules restrict any use of the information to criminally investigate or prosecute any alcohol or drug abuse patient.[facility] HospitalIn the event this information is protected by the Federal Confidentiality of Alcohol and Drug Abuse Patient Records regulations: The Federal rules restrict any use of the information to criminally investigate or prosecute any alcohol or drug abuse patient.[facility] HospitalIn the event this information is protected by the Federal Confidentiality of Alcohol and Drug Abuse Patient Records regulations: The Federal rules restrict any use of the information to criminally investigate or prosecute any alcohol or drug abuse patient.[facility] HospitalIn the event this information is protected by the Federal Confidentiality of Alcohol and Drug Abuse Patient Records regulations: The Federal rules restrict any use of the information to criminally investigate or prosecute any alcohol or drug abuse patient.[facility] HospitalIn the event this information is protected by the Federal Confidentiality of Alcohol and Drug Abuse Patient Records regulations: The Federal rules restrict any use of the information to criminally investigate or prosecute any alcohol or drug abuse patient.[facility] HospitalIn the event this information is protected by the Federal Confidentiality of Alcohol and Drug Abuse Patient Records regulations: The Federal rules restrict any use of the information to criminally investigate or prosecute any alcohol or drug abuse patient.[facility] HospitalIn the event this information is protected by the Federal Confidentiality of Alcohol and Drug Abuse Patient Records regulations: The Federal rules restrict any use of the information to criminally investigate or prosecute any alcohol or drug abuse patient.[facility] HospitalIn the event this information is protected by the Federal Confidentiality of Alcohol and Drug Abuse Patient Records regulations: The Federal rules restrict any use of the information to criminally investigate or prosecute any alcohol or drug abuse patient.[facility] HospitalIn the event this information is protected by the Federal Confidentiality of Alcohol and Drug Abuse Patient Records regulations: The Federal rules restrict any use of the information to criminally investigate or prosecute any alcohol or drug abuse patient.[facility] HospitalIn the event this information is protected by the Federal Confidentiality of Alcohol and Drug Abuse Patient Records regulations: The Federal rules restrict any use of the information to criminally investigate or prosecute any alcohol or drug abuse patient.[facility] HospitalIn the event this information is protected by the Federal Confidentiality of Alcohol and Drug Abuse Patient Records regulations: The Federal rules restrict any use of the information to criminally investigate or prosecute any alcohol or drug abuse patient.[facility] HospitalIn the event this information is protected by the Federal Confidentiality of Alcohol and Drug Abuse Patient Records regulations: The Federal rules restrict any use of the information to criminally investigate or prosecute any alcohol or drug abuse patient.[facility] HospitalIn the event this information is protected by the Federal Confidentiality of Alcohol and Drug Abuse Patient Records regulations: The Federal rules restrict any use of the information to criminally investigate or prosecute any alcohol or drug abuse patient.[facility] HospitalIn the event this information is protected by the Federal Confidentiality of Alcohol and Drug Abuse Patient Records regulations: The Federal rules restrict any use of the information to criminally investigate or prosecute any alcohol or drug abuse patient.[facility] HospitalIn the event this information is protected by the Federal Confidentiality of Alcohol and Drug Abuse Patient Records regulations: The Federal rules restrict any use of the information to criminally investigate or prosecute any alcohol or drug abuse patient.[facility] HospitalIn the event this information is protected by the Federal Confidentiality of Alcohol and Drug Abuse Patient Records regulations: The Federal rules restrict any use of the information to criminally investigate or prosecute any alcohol or drug abuse patient.[facility] HospitalIn the event this information is protected by the Federal Confidentiality of Alcohol and Drug Abuse Patient Records regulations: The Federal rules restrict any use of the information to criminally investigate or prosecute any alcohol or drug abuse patient.[facility] HospitalIn the event this information is protected by the Federal Confidentiality of Alcohol and Drug Abuse Patient Records regulations: The Federal rules restrict any use of the information to criminally investigate or prosecute any alcohol or drug abuse patient.[facility] HospitalIn the event this information is protected by the Federal Confidentiality of Alcohol and Drug Abuse Patient Records regulations: The Federal rules restrict any use of the information to criminally investigate or prosecute any alcohol or drug abuse patient.[facility] HospitalIn the event this information is protected by the Federal Confidentiality of Alcohol and Drug Abuse Patient Records regulations: The Federal rules restrict any use of the information to criminally investigate or prosecute any alcohol or drug abuse patient.[facility] HospitalIn the event this information is protected by the Federal Confidentiality of Alcohol and Drug Abuse Patient Records regulations: The Federal rules restrict any use of the information to criminally investigate or prosecute any alcohol or drug abuse patient.[facility] HospitalIn the event this information is protected by the Federal Confidentiality of Alcohol and Drug Abuse Patient Records regulations: The Federal rules restrict any use of the information to criminally investigate or prosecute any alcohol or drug abuse patient.[facility] HospitalIn the event this information is protected by the Federal Confidentiality of Alcohol and Drug Abuse Patient Records regulations: The Federal rules restrict any use of the information to criminally investigate or prosecute any alcohol or drug abuse patient.[facility] HospitalIn the event this information is protected by the Federal Confidentiality of Alcohol and Drug Abuse Patient Records regulations: The Federal rules restrict any use of the information to criminally investigate or prosecute any alcohol or drug abuse patient.[facility] HospitalIn the event this information is protected by the Federal Confidentiality of Alcohol and Drug Abuse Patient Records regulations: The Federal rules restrict any use of the information to criminally investigate or prosecute any alcohol or drug abuse patient.[facility] HospitalIn the event this information is protected by the Federal Confidentiality of Alcohol and Drug Abuse Patient Records regulations: The Federal rules restrict any use of the information to criminally investigate or prosecute any alcohol or drug abuse patient.[facility] HospitalIn the event this information is protected by the Federal Confidentiality of Alcohol and Drug Abuse Patient Records regulations: The Federal rules restrict any use of the information to criminally investigate or prosecute any alcohol or drug abuse patient.[facility] HospitalIn the event this information is protected by the Federal Confidentiality of Alcohol and Drug Abuse Patient Records regulations: The Federal rules restrict any use of the information to criminally investigate or prosecute any alcohol or drug abuse patient.[facility] HospitalIn the event this information is protected by the Federal Confidentiality of Alcohol and Drug Abuse Patient Records regulations: The Federal rules restrict any use of the information to criminally investigate or prosecute any alcohol or drug abuse patient.[facility] HospitalIn the event this information is protected by the Federal Confidentiality of Alcohol and Drug Abuse Patient Records regulations: The Federal rules restrict any use of the information to criminally investigate or prosecute any alcohol or drug abuse patient.[facility] HospitalIn the event this information is protected by the Federal Confidentiality of Alcohol and Drug Abuse Patient Records regulations: The Federal rules restrict any use of the information to criminally investigate or prosecute any alcohol or drug abuse patient.[facility] HospitalIn the event this information is protected by the Federal Confidentiality of Alcohol and Drug Abuse Patient Records regulations: The Federal rules restrict any use of the information to criminally investigate or prosecute any alcohol or drug abuse patient.[facility] HospitalIn the event this information is protected by the Federal Confidentiality of Alcohol and Drug Abuse Patient Records regulations: The Federal rules restrict any use of the information to criminally investigate or prosecute any alcohol or drug abuse patient.[facility] HospitalIn the event this information is protected by the Federal Confidentiality of Alcohol and Drug Abuse Patient Records regulations: The Federal rules restrict any use of the information to criminally investigate or prosecute any alcohol or drug abuse patient.[facility] HospitalIn the event this information is protected by the Federal Confidentiality of Alcohol and Drug Abuse Patient Records regulations: The Federal rules restrict any use of the information to criminally investigate or prosecute any alcohol or drug abuse patient.[facility] HospitalIn the event this information is protected by the Federal Confidentiality of Alcohol and Drug Abuse Patient Records regulations: The Federal rules restrict any use of the information to criminally investigate or prosecute any alcohol or drug abuse patient.[facility] HospitalIn the event this information is protected by the Federal Confidentiality of Alcohol and Drug Abuse Patient Records regulations: The Federal rules restrict any use of the information to criminally investigate or prosecute any alcohol or drug abuse patient.[facility] HospitalIn the event this information is protected by the Federal Confidentiality of Alcohol and Drug Abuse Patient Records regulations: The Federal rules restrict any use of the information to criminally investigate or prosecute any alcohol or drug abuse patient.[facility] HospitalIn the event this information is protected by the Federal Confidentiality of Alcohol and Drug Abuse Patient Records regulations: The Federal rules restrict any use of the information to criminally investigate or prosecute any alcohol or drug abuse patient.[facility] HospitalIn the event this information is protected by the Federal Confidentiality of Alcohol and Drug Abuse Patient Records regulations: The Federal rules restrict any use of the information to criminally investigate or prosecute any alcohol or drug abuse patient.[facility] HospitalIn the event this information is protected by the Federal Confidentiality of Alcohol and Drug Abuse Patient Records regulations: The Federal rules restrict any use of the information to criminally investigate or prosecute any alcohol or drug abuse patient.[facility] HospitalIn the event this information is protected by the Federal Confidentiality of Alcohol and Drug Abuse Patient Records regulations: The Federal rules restrict any use of the information to criminally investigate or prosecute any alcohol or drug abuse patient.[facility] HospitalIn the event this information is protected by the Federal Confidentiality of Alcohol and Drug Abuse Patient Records regulations: The Federal rules restrict any use of the information to criminally investigate or prosecute any alcohol or drug abuse patient.[facility] HospitalIn the event this information is protected by the Federal Confidentiality of Alcohol and Drug Abuse Patient Records regulations: The Federal rules restrict any use of the information to criminally investigate or prosecute any alcohol or drug abuse patient.[facility] HospitalIn the event this information is protected by the Federal Confidentiality of Alcohol and Drug Abuse Patient Records regulations: The Federal rules restrict any use of the information to criminally investigate or prosecute any alcohol or drug abuse patient.[facility] HospitalIn the event this information is protected by the Federal Confidentiality of Alcohol and Drug Abuse Patient Records regulations: The Federal rules restrict any use of the information to criminally investigate or prosecute any alcohol or drug abuse patient.[facility] HospitalIn the event this information is protected by the Federal Confidentiality of Alcohol and Drug Abuse Patient Records regulations: The Federal rules restrict any use of the information to criminally investigate or prosecute any alcohol or drug abuse patient.[facility] HospitalIn the event this information is protected by the Federal Confidentiality of Alcohol and Drug Abuse Patient Records regulations: The Federal rules restrict any use of the information to criminally investigate or prosecute any alcohol or drug abuse patient.[facility] HospitalIn the event this information is protected by the Federal Confidentiality of Alcohol and Drug Abuse Patient Records regulations: The Federal rules restrict any use of the information to criminally investigate or prosecute any alcohol or drug abuse patient.[facility] HospitalIn the event this information is protected by the Federal Confidentiality of Alcohol and Drug Abuse Patient Records regulations: The Federal rules restrict any use of the information to criminally investigate or prosecute any alcohol or drug abuse patient.[facility] HospitalIn the event this information is protected by the Federal Confidentiality of Alcohol and Drug Abuse Patient Records regulations: The Federal rules restrict any use of the information to criminally investigate or prosecute any alcohol or drug abuse patient.[facility] HospitalIn the event this information is protected by the Federal Confidentiality of Alcohol and Drug Abuse Patient Records regulations: The Federal rules restrict any use of the information to criminally investigate or prosecute any alcohol or drug abuse patient.[facility] HospitalIn the event this information is protected by the Federal Confidentiality of Alcohol and Drug Abuse Patient Records regulations: The Federal rules restrict any use of the information to criminally investigate or prosecute any alcohol or drug abuse patient.[facility] HospitalIn the event this information is protected by the Federal Confidentiality of Alcohol and Drug Abuse Patient Records regulations: The Federal rules restrict any use of the information to criminally investigate or prosecute any alcohol or drug abuse patient.[facility] HospitalIn the event this information is protected by the Federal Confidentiality of Alcohol and Drug Abuse Patient Records regulations: The Federal rules restrict any use of the information to criminally investigate or prosecute any alcohol or drug abuse patient.[facility] HospitalIn the event this information is protected by the Federal Confidentiality of Alcohol and Drug Abuse Patient Records regulations: The Federal rules restrict any use of the information to criminally investigate or prosecute any alcohol or drug abuse patient.[facility] HospitalIn the event this information is protected by the Federal Confidentiality of Alcohol and Drug Abuse Patient Records regulations: The Federal rules restrict any use of the information to criminally investigate or prosecute any alcohol or drug abuse patient.[facility] HospitalIn the event this information is protected by the Federal Confidentiality of Alcohol and Drug Abuse Patient Records regulations: The Federal rules restrict any use of the information to criminally investigate or prosecute any alcohol or drug abuse patient.[facility] HospitalIn the event this information is protected by the Federal Confidentiality of Alcohol and Drug Abuse Patient Records regulations: The Federal rules restrict any use of the information to criminally investigate or prosecute any alcohol or drug abuse patient.[facility] HospitalIn the event this information is protected by the Federal Confidentiality of Alcohol and Drug Abuse Patient Records regulations: The Federal rules restrict any use of the information to criminally investigate or prosecute any alcohol or drug abuse patient.[facility] HospitalIn the event this information is protected by the Federal Confidentiality of Alcohol and Drug Abuse Patient Records regulations: The Federal rules restrict any use of the information to criminally investigate or prosecute any alcohol or drug abuse patient.[facility] HospitalIn the event this information is protected by the Federal Confidentiality of Alcohol and Drug Abuse Patient Records regulations: The Federal rules restrict any use of the information to criminally investigate or prosecute any alcohol or drug abuse patient.[facility] HospitalIn the event this information is protected by the Federal Confidentiality of Alcohol and Drug Abuse Patient Records regulations: The Federal rules restrict any use of the information to criminally investigate or prosecute any alcohol or drug abuse patient.[facility] HospitalIn the event this information is protected by the Federal Confidentiality of Alcohol and Drug Abuse Patient Records regulations: The Federal rules restrict any use of the information to criminally investigate or prosecute any alcohol or drug abuse patient.[facility] HospitalIn the event this information is protected by the Federal Confidentiality of Alcohol and Drug Abuse Patient Records regulations: The Federal rules restrict any use of the information to criminally investigate or prosecute any alcohol or drug abuse patient.[facility] HospitalIn the event this information is protected by the Federal Confidentiality of Alcohol and Drug Abuse Patient Records regulations: The Federal rules restrict any use of the information to criminally investigate or prosecute any alcohol or drug abuse patient.[facility] HospitalIn the event this information is protected by the Federal Confidentiality of Alcohol and Drug Abuse Patient Records regulations: The Federal rules restrict any use of the information to criminally investigate or prosecute any alcohol or drug abuse patient.[facility] HospitalIn the event this information is protected by the Federal Confidentiality of Alcohol and Drug Abuse Patient Records regulations: The Federal rules restrict any use of the information to criminally investigate or prosecute any alcohol or drug abuse patient.[facility] HospitalIn the event this information is protected by the Federal Confidentiality of Alcohol and Drug Abuse Patient Records regulations: The Federal rules restrict any use of the information to criminally investigate or prosecute any alcohol or drug abuse patient.[facility] HospitalIn the event this information is protected by the Federal Confidentiality of Alcohol and Drug Abuse Patient Records regulations: The Federal rules restrict any use of the information to criminally investigate or prosecute any alcohol or drug abuse patient.[facility] HospitalIn the event this information is protected by the Federal Confidentiality of Alcohol and Drug Abuse Patient Records regulations: The Federal rules restrict any use of the information to criminally investigate or prosecute any alcohol or drug abuse patient.[facility] HospitalIn the event this information is protected by the Federal Confidentiality of Alcohol and Drug Abuse Patient Records regulations: The Federal rules restrict any use of the information to criminally investigate or prosecute any alcohol or drug abuse patient.[facility] HospitalIn the event this information is protected by the Federal Confidentiality of Alcohol and Drug Abuse Patient Records regulations: The Federal rules restrict any use of the information to criminally investigate or prosecute any alcohol or drug abuse patient.[facility] HospitalIn the event this information is protected by the Federal Confidentiality of Alcohol and Drug Abuse Patient Records regulations: The Federal rules restrict any use of the information to criminally investigate or prosecute any alcohol or drug abuse patient.[facility] HospitalIn the event this information is protected by the Federal Confidentiality of Alcohol and Drug Abuse Patient Records regulations: The Federal rules restrict any use of the information to criminally investigate or prosecute any alcohol or drug abuse patient.[facility] HospitalIn the event this information is protected by the Federal Confidentiality of Alcohol and Drug Abuse Patient Records regulations: The Federal rules restrict any use of the information to criminally investigate or prosecute any alcohol or drug abuse patient.[facility] HospitalIn the event this information is protected by the Federal Confidentiality of Alcohol and Drug Abuse Patient Records regulations: The Federal rules restrict any use of the information to criminally investigate or prosecute any alcohol or drug abuse patient.[facility] HospitalIn the event this information is protected by the Federal Confidentiality of Alcohol and Drug Abuse Patient Records regulations: The Federal rules restrict any use of the information to criminally investigate or prosecute any alcohol or drug abuse patient.[facility] HospitalIn the event this information is protected by the Federal Confidentiality of Alcohol and Drug Abuse Patient Records regulations: The Federal rules restrict any use of the information to criminally investigate or prosecute any alcohol or drug abuse patient.[facility] HospitalIn the event this information is protected by the Federal Confidentiality of Alcohol and Drug Abuse Patient Records regulations: The Federal rules restrict any use of the information to criminally investigate or prosecute any alcohol or drug abuse patient.[facility] HospitalIn the event this information is protected by the Federal Confidentiality of Alcohol and Drug Abuse Patient Records regulations: The Federal rules restrict any use of the information to criminally investigate or prosecute any alcohol or drug abuse patient.[facility] HospitalIn the event this information is protected by the Federal Confidentiality of Alcohol and Drug Abuse Patient Records regulations: The Federal rules restrict any use of the information to criminally investigate or prosecute any alcohol or drug abuse patient.[facility] HospitalIn the event this information is protected by the Federal Confidentiality of Alcohol and Drug Abuse Patient Records regulations: The Federal rules restrict any use of the information to criminally investigate or prosecute any alcohol or drug abuse patient.[facility] HospitalIn the event this information is protected by the Federal Confidentiality of Alcohol and Drug Abuse Patient Records regulations: The Federal rules restrict any use of the information to criminally investigate or prosecute any alcohol or drug abuse patient.[facility] HospitalIn the event this information is protected by the Federal Confidentiality of Alcohol and Drug Abuse Patient Records regulations: The Federal rules restrict any use of the information to criminally investigate or prosecute any alcohol or drug abuse patient.[facility] HospitalIn the event this information is protected by the Federal Confidentiality of Alcohol and Drug Abuse Patient Records regulations: The Federal rules restrict any use of the information to criminally investigate or prosecute any alcohol or drug abuse patient.[facility] HospitalIn the event this information is protected by the Federal Confidentiality of Alcohol and Drug Abuse Patient Records regulations: The Federal rules restrict any use of the information to criminally investigate or prosecute any alcohol or drug abuse patient.[facility] HospitalIn the event this information is protected by the [facility] Confidentiality of Alcohol and Drug Abuse Patient Records regulations: The Federal rules restrict any use of the information to criminally investigate or prosecute any alcohol or drug abuse patient.[facility] HospitalIn the event this information is protected by the Federal Confidentiality of Alcohol and Drug Abuse Patient Records regulations: The Federal rules restrict any use of the information to criminally investigate or prosecute any alcohol or drug abuse patient.[facility] Care Teams (unrecognized sec tion and content) Aboriginal Ceremonial Celebrant Relationship Specialty Start Date End Date Marilee Thakur MD [address], [place] [id number] PCP - General Internal Medicine 12/13/15 Aboriginal Ceremonial Celebrant Relationship Specialty Start Date End Date Marilee Thakur MD [address], [place] [id number] PCP - General Internal Medicine 12/13/15 Aboriginal Ceremonial Celebrant Relationship Specialty Start Date End Date Marilee Thakur MD [address], [place] [id number] PCP - General Internal Medicine 12/13/15 Aboriginal Ceremonial Celebrant Relationship Specialty Start Date End Date Marilee Thakur MD [address] [place] [address] PCP - General Internal Medicine 12/13/15 Aboriginal Ceremonial Celebrant Relationship Specialty Start Date End Date Marilee Thakur MD [address] [place] [address] PCP - General Internal Medicine 12/13/15 Aboriginal Ceremonial Celebrant Relationship Specialty Start Date End Date Marilee Thakur MD [address] [place] [address] PCP - General Internal Medicine 12/13/15 Aboriginal Ceremonial Celebrant Relationship Specialty Start Date End Date Marilee Thakur MD [address] [place] [address] PCP - General Internal Medicine 12/13/15 Aboriginal Ceremonial Celebrant Relationship Specialty Start Date End Date Marilee Thakur MD [address] [place] [address] PCP - General Internal Medicine 12/13/15 Aboriginal Ceremonial Celebrant Relationship Specialty Start Date End Date Marilee Thakur MD [address] [place] [address] PCP - General Internal Medicine 12/13/15 Aboriginal Ceremonial Celebrant Relationship Specialty Start Date End Date Marilee Thakur MD [address] [place] [address] PCP - General Internal Medicine 12/13/15 Aboriginal Ceremonial Celebrant Relationship Specialty Start Date End Date Marilee Thakur MD [address] [place] [address] PCP - General Internal Medicine 12/13/15 Aboriginal Ceremonial Celebrant Relationship Specialty Start Date End Date Marilee Thakur MD [address] [place] [address] PCP - General Internal Medicine 12/13/15 Aboriginal Ceremonial Celebrant Relationship Specialty Start Date End Date Marilee Thakur MD [address] [facility] [place] [address] PCP - General Internal Medicine 12/13/15 Aboriginal Ceremonial Celebrant Relationship Specialty Start Date End Date Marilee Thakur MD [address] [facility] [place] [address] PCP - General Internal Medicine 12/13/15 Team Status: Active Member Role Status Dates No Primary Care Physician Family Provider Active Dr. Marilee Thakur MD Primary Care Provider Active Team Status: Inactive Member Role Status Dates Dr. Marilee Thakur MD Primary Care Provider, Referring Provider Active Cecilia Fontenot SESSIONS CLERK, SESSIONS CLERK-C Attending Provider Active Team Status: Inactive Member Role Status Dates Dr. Marilee Thakur MD Primary Care Provider Active Cecilia Fontenot SESSIONS CLERK, SESSIONS CLERK-C Attending Provider, Referring Provider Active Aboriginal Ceremonial Celebrant Relationship Specialty Start Date End Date Marilee Thakur MD [address] [facility] [place] [address] PCP - General Internal Medicine 12/13/15 Aboriginal Ceremonial Celebrant Relationship Specialty Start Date End Date Marilee Thakur MD [address] [facility] [place] [address] PCP - General Internal Medicine 12/13/15 Aboriginal Ceremonial Celebrant Relationship Specialty Start Date End Date Marilee Thakur MD [address] [facility] [place] [address] PCP - General Internal Medicine 12/13/15 Aboriginal Ceremonial Celebrant Relationship Specialty Start Date End Date Marilee Thakur MD [address] [facility] [place] [address] PCP - General Internal Medicine 12/13/15 Aboriginal Ceremonial Celebrant Relationship Specialty Start Date End Date Marilee Thakur MD [address] [facility] [place] [address] PCP - General Internal Medicine 12/13/15 Aboriginal Ceremonial Celebrant Relationship Specialty Start Date End Date Marilee Thakur MD [address] [facility] [place] [address] PCP - General Internal Medicine 12/13/15 Aboriginal Ceremonial Celebrant Relationship Specialty Start Date End Date Marilee Thakur MD [address] [place] [address] PCP - General Internal Medicine 12/13/15 Aboriginal Ceremonial Celebrant Relationship Specialty Start Date End Date Marilee Thakur MD [address] [facility] [place] [address] PCP - General Internal Medicine 12/13/15 Aboriginal Ceremonial Celebrant Relationship Specialty Start Date End Date Marilee Thakur MD [address] [facility] [place] [address] PCP - General Internal Medicine 12/13/15 Aboriginal Ceremonial Celebrant Relationship Specialty Start Date End Date Marilee Thakur MD [address] [facility] [place] [address] PCP - General Internal Medicine 12/13/15 Aboriginal Ceremonial Celebrant Relationship Specialty Start Date End Date Marilee Thakur MD [address] [facility] [place] [address] PCP - General Internal Medicine 12/13/15 Aboriginal Ceremonial Celebrant Relationship Specialty Start Date End Date Marilee Thakur MD [address] [facility] [place] [address] PCP - General Internal Medicine 12/13/15 Aboriginal Ceremonial Celebrant Relationship Specialty Start Date End Date Marilee Thakur MD [address] [place] [address] PCP - General Internal Medicine 12/13/15 Aboriginal Ceremonial Celebrant Relationship Specialty Start Date End Date Marilee Thakur MD [address] [place] [address] PCP - General Internal Medicine 12/13/15 Aboriginal Ceremonial Celebrant Relationship Specialty Start Date End Date Marilee Thakur MD [address] [place] [address] PCP - General Internal Medicine 12/13/15 Aboriginal Ceremonial Celebrant Relationship Specialty Start Date End Date Marilee Thakur MD [address] [place] [address] PCP - General Internal Medicine 12/13/15 Aboriginal Ceremonial Celebrant Relationship Specialty Start Date End Date Marilee Thakur MD [address] [place] [address] PCP - General Internal Medicine 12/13/15 Aboriginal Ceremonial Celebrant Relationship Specialty Start Date End Date Marilee Thakur MD [address] [place] [address] PCP - General Internal Medicine 12/13/15 Aboriginal Ceremonial Celebrant Relationship Specialty Start Date End Date Marilee Thakur MD [address] [place] [address] PCP - General Internal Medicine 12/13/15 Aboriginal Ceremonial Celebrant Relationship Specialty Start Date End Date Marilee Thakur MD [address] [place] [address] PCP - General Internal Medicine 12/13/15 Aboriginal Ceremonial Celebrant Relationship Specialty Start Date End Date Marilee Thakur MD [address] [facility] [place] [address] PCP - General Internal Medicine 12/13/15 Aboriginal Ceremonial Celebrant Relationship Specialty Start Date End Date Marilee Thakur MD [address] [facility] [place] [address] PCP - General Internal Medicine 12/13/15 Martell Garland, RN [address] [facility] [place] [address] Primary Care Drying Machine Tender 01/05/24 Aboriginal Ceremonial Celebrant Relationship Specialty Start Date End Date Marilee Thakur MD [address] [place] [address] PCP - General Internal Medicine 12/13/15 Martell Garland, RN [address] [facility] [place] [address] Primary Care Drying Machine Tender 01/05/24 Aboriginal Ceremonial Celebrant Relationship Specialty Start Date End Date Marilee Thakur MD [address] [facility] [address] PCP - General Internal Medicine 12/13/15 Martell Garland, RN [address] [facility] [place] [address] Primary Care Drying Machine Tender 01/05/24 Aboriginal Ceremonial Celebrant Relationship Specialty Start Date End Date Marilee Thakur MD [address] [facility] [address] PCP - General Internal Medicine 12/13/15 Martell Garland, RN [address] [facility] [place] [address] Primary Care Drying Machine Tender 01/05/24 Aboriginal Ceremonial Celebrant Relationship Specialty Start Date End Date Marilee Thakur MD [address] [place] [address] PCP - General 09/04/17 Isi Goodman MD [address] [place] [address] Consulting Physician Cardiology 01/20/24 Aboriginal Ceremonial Celebrant Relationship Specialty Start Date End Date Marilee Thakur MD [address] [place] [address] PCP - General Internal Medicine 12/13/15 Martell Garland, RN [address] [place] [address] Primary Care Drying Machine Tender 01/05/24 Aboriginal Ceremonial Celebrant Relationship Specialty Start Date End Date Marilee Thakur MD [address] [place] [address] PCP - General Internal Medicine 12/13/15 Martell Garland, RN [address] [place] [address] Primary Care Drying Machine Tender 01/05/24 Aboriginal Ceremonial Celebrant Relationship Specialty Start Date End Date Marilee Thakur MD [address] [place] [address] PCP - General Internal Medicine 12/13/15 Martell Garland, RN [address] [place] [address] Primary Care Drying Machine Tender 01/05/24 Aboriginal Ceremonial Celebrant Relationship Specialty Start Date End Date Marilee Thakur MD [address] [place] [address] PCP - General 09/04/17 Isi Goodman MD [address] [place] [address] Consulting Physician Cardiology 01/20/24 Aboriginal Ceremonial Celebrant Relationship Specialty Start Date End Date Marilee Thakur MD [address] [place] [address] PCP - General Internal Medicine 12/13/15 Bradley Flores, RODRÍGUEZ [address] [facility] [place] [address] Primary Care Drying Machine Tender 01/27/24 Aboriginal Ceremonial Celebrant Relationship Specialty Start Date End Date Marilee Thakur MD [address] [place] [address] PCP - General Internal Medicine 12/13/15 Bradley Flores, RODRÍGUEZ [address] [facility] [place] [address] Primary Care Drying Machine Tender 01/27/24 Aboriginal Ceremonial Celebrant Relationship Specialty Start Date End Date Marilee Thakur MD [address] [place] [address] PCP - General Internal Medicine 12/13/15 Bradley Flores, RN [address] [place] [address] Primary Care Drying Machine Tender 01/27/24 Aboriginal Ceremonial Celebrant Relationship Specialty Start Date End Date Marilee Thakur MD [address] [place] [address] PCP - General Internal Medicine 12/13/15 Bradley Flores, RODRÍGUEZ [address] [place] [address] Primary Care Drying Machine Tender 01/27/24 Aboriginal Ceremonial Celebrant Relationship Specialty Start Date End Date Marilee Thakur MD [address] [place] [address] PCP - General Internal Medicine 12/13/15 Bradley Flores, RODRÍGUEZ [address] [place] [address] Primary Care Drying Machine Tender 01/27/24 Aboriginal Ceremonial Celebrant Relationship Specialty Start Date End Date Marilee Thakur MD [address] [place] [address] PCP - General Internal Medicine 12/13/15 Bradley Flores, RODRÍGUEZ [address] [place] [address] Primary Care Drying Machine Tender 01/27/24 Aaliyah Sanchez PA-C [address] [place] [address] Back Seam Stitcher Family Medicine 02/15/24 Mika Kaplan APRN.CATERERS HELPER [address] [place] [address] Back Seam Stitcher Internal Medicine 02/15/24 Maria Luisa Hayden PA-C [address] [place] [address] Back Seam Stitcher Family Medicine 02/15/24 Aboriginal Ceremonial Celebrant Relationship Specialty Start Date End Date Marilee Thakur MD [address] [place] [address] PCP - General Internal Medicine 12/13/15 Aaliyah Sanchez PA-C [address] [place] [address] Back Seam Stitcher Family Medicine 02/15/24 Mika Kaplan APRN.CATERERS HELPER [address] [place] [address] Back Seam Stitcher Internal Medicine 02/15/24 Maria Luisa Hayden PA-C [address] [place] [address] Back Seam Stitcher Family Medicine 02/15/24 Bradley Flores RN [address] [place] [address] Primary Care Drying Machine Tender 02/20/24 Aboriginal Ceremonial Celebrant Relationship Specialty Start Date End Date Marilee Thakur MD [address] [place] [address] PCP - General Internal Medicine 12/13/15 Aaliyah Sanchez PA-C [address] [place] [address] Back Seam Stitcher Family Medicine 02/15/24 Mika Kaplan APRN.CNP [address] [place] [address] Back Seam Stitcher Internal Medicine 02/15/24 Maria Luisa Hayden PA-C [address] [place] [address] Back Seam Stitcher Family Medicine 02/15/24 Bradley Flores RN [address] [place] [address] Primary Care Drying Machine Tender 02/20/24 Aboriginal Ceremonial Celebrant Relationship Specialty Start Date End Date Marilee Thakur MD [address] [place] [address] PCP - General Internal Medicine 12/13/15 Aaliyah Sanchez PA-C [address] [place] [address] Back Seam Stitcher Family Medicine 02/15/24 Mika Kaplan APRN.CATERERS HELPER [address] [place] [address] Back Seam Stitcher Internal Medicine 02/15/24 Maria Luisa Hayden PA-C [address] [place] [address] Back Seam Stitcher Family Medicine 02/15/24 Bradley Flores, RODRÍGUEZ [address] [place] [address] Primary Care Drying Machine Tender 02/20/24 Aboriginal Ceremonial Celebrant Relationship Specialty Start Date End Date Marilee Thakur MD [address] [place] [address] PCP - General Internal Medicine 12/13/15 Aaliyah Sanchez PA-C [address] [place] [address] Back Seam Stitcher Family Medicine 02/15/24 Mika Kaplan, MOISES.CATERERS HELPER [address] [place] [address] Back Seam Stitcher Internal Medicine 02/15/24 Maria Luisa Hayden PA-C [address] [place] [address] Back Seam Stitcher Family Medicine 02/15/24 Bradley Flores RN [address] [place] [address] Primary Care Drying Machine Tender 02/27/24 02/27/24 Aboriginal Ceremonial Celebrant Relationship Specialty Start Date End Date Marilee Thakur MD [address] [place] [address] PCP - General Internal Medicine 12/13/15 Aaliyah Sanchez PA-C [address] [place] [address] Back Seam Stitcher Family [facility] 02/15/24 Mika Kaplan APRN.CATERERS HELPER [address] [place] [address] Back Seam Stitcher Internal Medicine 02/15/24 Maria Luisa Hayden PA-C [address] [place] [address] Back Seam Stitcher Family [facility] 02/15/24 Aboriginal Ceremonial Celebrant Relationship Specialty Start Date End Date Marilee Thakur MD [address] [place] [address] PCP - General Internal Medicine 12/13/15 Aaliyah Sanchez PA-C [address] [place] [address] Back Seam Stitcher Family Medicine 02/15/24 Mika Kaplan APRN.CATERERS HELPER [address] [place] [address] Back Seam Stitcher Internal Medicine 02/15/24 Maria Luisa Hayden PA-C [address] [place] [address] Back Seam Stitcher Family [facility] 02/15/24 Aboriginal Ceremonial Celebrant Relationship Specialty Start Date End Date Marilee Thakur MD [address] [place] [address] PCP - General Internal Medicine 12/13/15 Aaliyah Sanchez PA-C [address] [place], [place] 1581707 [phone] Back Seam Stitcher Family Medicine 02/15/24 Mika Kaplan APRN.CATERERS HELPER [address] [place] [address] Back Seam Stitcher Internal Medicine 02/15/24 Maria Luisa Hayden PA-C [address] [place] [address] Back Seam Stitcher Family [facility] 02/15/24 Aboriginal Ceremonial Celebrant Relationship Specialty Start Date End Date Marilee Thakur MD [address] [place] [address] PCP - General Internal Medicine 12/13/15 Aaliyah Sanchez PA-C [address] [place] [address] Back Seam Stitcher Family Medicine 02/15/24 Mika Kaplan APRN.CATERERS HELPER [address] [place] [address] Back Seam Stitcher Internal Medicine 02/15/24 Maria Luisa Hayden PA-C [address] [place] [address] [facility] Aboriginal Ceremonial Celebrant Relationship Specialty Start Date End Date Marilee Thakur MD [address] [place] [address] PCP - General Internal Medicine 12/13/15 Aaliyah Sanchez PA-C [address] [place] [address] Back Seam Stitcher Family Medicine 02/15/24 Mika Kapaln APRN.CATERERS HELPER [address] [place] [address] Back Seam Stitcher Internal Medicine 02/15/24 Maria Luisa Hayden PA-C [address] [facility] [place] [address] Back Seam Stitcher Family Medicine 02/15/24 Aboriginal Ceremonial Celebrant Relationship Specialty Start Date End Date Marilee Thakur MD [address] [facility] [place] [address] PCP - General Internal Medicine 12/13/15 Aaliyah Sanchez PA-C [address] [place] [address] Back Seam Stitcher Family Medicine 02/15/24 Mika Kaplan APRN.CATERERS HELPER [address] [facility] [place] [address] Back Seam Stitcher Internal Medicine 02/15/24 Maria Luisa Hayden PA-C [address] [facility] [place] [address] Back Seam Stitcher Family [facility] 02/15/24 Aboriginal Ceremonial Celebrant Relationship Specialty Start Date End Date Marilee Thakur MD [address] [facility] [place] [address] PCP - General Internal Medicine 12/13/15 Aaliyah Sanchez PA-C [address] [place] [address] [phone] Back Seam Stitcher Family Medicine 02/15/24 Mika Kaplan APRN.CATERERS HELPER [address] [facility] [place] [address] Back Seam Stitcher Internal Medicine 02/15/24 Maria Luisa Hayden PA-C [address] [place] [address] Back Seam Stitcher Family Medicine 02/15/24 Aboriginal Ceremonial Celebrant Relationship Specialty Start Date End Date Marilee Thakur MD [address] [place] [address] PCP - General Internal Medicine 12/13/15 Aaliyah Sanchez PA-C [address] [place] [address] [phone] Back Seam Stitcher Family Medicine 02/15/24 Mika Kaplan APRN.CATERERS HELPER [address] [place] [address] Back Seam Stitcher Internal Medicine 02/15/24 Maria Luisa Hayden PA-C [address] [place] [address] Back Seam Stitcher Family [facility] 02/15/24 Aboriginal Ceremonial Celebrant Relationship Specialty Start Date End Date Marilee Thakur MD [address] [place] [address] PCP - General Internal Medicine 12/13/15 Aaliyah Sanchez PA-C [address] [place] [address] Back Seam Stitcher Family Medicine 02/15/24 Mika Kaplan APRN.CATERERS HELPER [address] [place] [address] Back Seam Stitcher Internal Medicine 02/15/24 Maria Luisa Hayden PA-C [address] [place] [address] Back Seam Stitcher [facility] 02/15/24 Aboriginal Ceremonial Celebrant Relationship Specialty Start Date End Date Marilee Thakur MD [address] [place], [place] 680141 PCP - General Internal Medicine 12/13/15 Aaliyah Sanchez PA-C [address] [place] [address] Back Seam Stitcher Family [facility] 02/15/24 Mika Kaplan APRN.[facility] [address] [place] [address] Back Seam Stitcher Internal Medicine 02/15/24 Maria Luisa Hayden PA-C [address] [place] [address] [facility] 02/15/24 Aboriginal Ceremonial Celebrant Relationship Specialty Start Date End Date Marilee Thakur MD [address] [place] [address] PCP - General 09/04/17 Isi Goodman MD [address] [address] Consulting Physician Cardiology 01/20/24 Aboriginal Ceremonial Celebrant Relationship Specialty Start Date End Date Marilee Thakur MD [address] [place] [address] PCP - General Internal Medicine 12/13/15 Aaliyah Sanchez PA-C [address] [place] [address] Back Seam Stitcher Family Medicine 02/15/24 Mika Kaplan APRN.CATERERS HELPER [address] [place] [address] Back Seam Stitcher Internal Medicine 02/15/24 Maria Luisa Hayden PA-C [address] [place] [address] Back Seam Stitcher Family Medicine 02/15/24 Aboriginal Ceremonial Celebrant Relationship Specialty Start Date End Date Marilee Thakur MD [address] [place], [place] 774741 PCP - General Internal Medicine 12/13/15 Aaliyah Sanchez PA-C [address] [place] [address] Back Seam Stitcher Family Medicine 02/15/24 Mika Kaplan APRN.CATERERS HELPER [address] [place] [address] Back Seam Stitcher Internal Medicine 02/15/24 Maria Luisa Hayden PA-C [address] [place] [address] Back Seam Stitcher Family [facility] 02/15/24 Aboriginal Ceremonial Celebrant Relationship Specialty Start Date End Date Marilee Thakur MD [address] [place], [place] 707551 PCP - General 09/04/17 Isi Goodman MD [address] [address] Consulting Physician Cardiology 01/20/24 Aboriginal Ceremonial Celebrant Relationship Specialty Start Date End Date Marilee Thakur MD [address] [place] [address] PCP - General Internal Medicine 12/13/15 Aaliyah Sanchez PA-C [address] [place] [address] Back Seam Stitcher Family Medicine 02/15/24 Mika Kaplan APRN.CATERERS HELPER [address] [place] [address] Back Seam Stitcher Internal Medicine 02/15/24 Maria Luisa Hayden PA-C [address] [place] [address] Back Seam Stitcher Family Medicine 02/15/24 Aboriginal Ceremonial Celebrant Relationship Specialty Start Date End Date Marilee Thakur MD [address] [place] [address] PCP - General Internal Medicine 12/13/15 Aaliyah Sanchez PA-C [address] [place] [address] Back Seam Stitcher Family Medicine 02/15/24 Mika Kaplan, [employer] HISTORY PROFESSOR.CATERERS HELPER [address] [place] [address] Back Seam Stitcher Internal Medicine 02/15/24 Maria Luisa Hayden PA-C [address] [place] [address] Back Seam Stitcher Family Medicine 02/15/24 Aboriginal Ceremonial Celebrant Relationship Specialty Start Date End Date Marilee Thakur MD [address] [place], [place] 018951 PCP - General 09/04/17 Isi Goodman MD [address] [place] [address] Consulting Physician Cardiology 01/20/24 Aboriginal Ceremonial Celebrant Relationship Specialty Start Date End Date Marilee Thakur MD [address] [place], [place] 280481 PCP - General Internal Medicine 12/13/15 Mika Kaplan APRN.CATERERS HELPER [address] [place] [address] Back Seam Stitcher Internal Medicine 02/15/24 Aboriginal Ceremonial Celebrant Relationship Specialty Start Date End Date Marilee Thakur MD [address] [place], [place] 179201 PCP - General Internal Medicine 12/13/15 Aaliyah Sanchez PA-C [address] [place] [address] Back Seam Stitcher Family Medicine 02/15/24 05/30/24 Mika Kaplan APRN.CATERERS HELPER [address] [place] [address] Back Seam Stitcher Internal Medicine 02/15/24 Maria Luisa Hayden PA-C [address] [place] [address] Back Seam Stitcher Family Medicine 02/15/24 05/30/24 Aboriginal Ceremonial Celebrant Relationship Specialty Start Date End Date Marilee Thakur MD [address] [place] [address] PCP - General Internal Medicine 12/13/15 Mika Kaplan APRN.OBED [address] [place] [address] Back Seam Stitcher Internal Medicine 02/15/24 Goals (unrecognized section and [...] BE BASED ON THE PRIMARY CLINICAL RECORDS. [employer] provides no warranty or guarantee of the accuracy or completeness of information in this document.
[2024-08-16 09:20] LABS: Anion Gap 8 (5-15); BUN 15 mg/dL (4-19); BUN/Creat Ratio 33.4 RATIO (10-20); Calcium,Total 8.9 mg/dL (7.6-11.0); Carbon Dioxide 34.5 mmol/L (21.0-32.0); Chloride 98 mmol/L (98-108); Creatinine, Serum 0.44 mg/dL (0.70-1.20); EST Glomerular Filtration Rate 124 (>60); Glucose 77 mg/dL (70-99); Potassium 4.9 mmol/L (3.3-5.1); Sodium Level 140 mmol/L (133-145)
== END ==
LOC: OLS.SW 05:00
PROVIDERS: PCP Internal Medicine; Visit Provider Internal Medicine
DX: I10 Essential (primary) hypertension (principal); J96.01 Acute respiratory failure with hypoxia
CPT/HCPCS: 36415; 80048

== ENCOUNTER 2024-10-14 20:46 | Emergency (ER) | payer MEDICARE, MEDICAID, SELFPAY ==
[2024-10-14 20:47] VITALS: BP 135/72; PULSE 58; RESP 16; TEMP 36.7; O2SAT 100; BMI 54.7
--- NOTE | 2024-10-14 21:05 | PCA ---
FRIEND OR FAMILY OF PT STOPS BY DESK AND SAYS SHE IS LEAVING THE PT IN 7 IS PERFECTLY FINE, SHE SAYS SHE FELL ASLEEP I'LL BE RIGHT BACK. AND WALKS AWAY. I WAS UNABLE TO GET A NAME OR RELATIONSHIP TO PT.
--- OUTSIDE RECORDS SUMMARY | 2024-10-14 21:39 | XMS RPT_ITS | CCD ---
Author Organization [facility] Care Team Providers Care Loss Prevention Detective Name Role Phone IM[facility] Unavailable Unavailable RICKI HIRSCH Unavailable Unavailable Smita Salgado Unavailable Unavailable aMrilee Thakur Unavailable Unavailable Lexus Jackson Unavailable Unavailable Marilee Thakur Unavailable Marilee Thakur MD Primary Care Provider Marilee Thakur MD Primary Care Provider Marilee Thakur MD Primary Care Provider Dr. Marilee Thakur Primary Care Provider Dr. Marilee Thakur Referring Provider Po STRINGED INSTRUMENT REPAIRER, STRINGED INSTRUMENT REPAIRER-C Cecilia Attending Provider Dr. Marilee Thakur Primary Care Provider Dr. Marilee Thakur Referring Provider Po STRINGED INSTRUMENT REPAIRER, STRINGED INSTRUMENT REPAIRER-C Cecilia Attending Provider Marilee Thakur MD Primary Care Provider DR MARILEE THAKUR MD Primary Care Physician Larry ARREGUIN, Martell Unavailable Marilee Thakur MD Primary Care Provider Isi Goodman MD Unavailable Anna ARREGUIN, Bradley Plascencia Unavailable Aaliyah Sanchez PA-C Unavailable Older PAN DEVULCANIZER.BULB INSPECTOR, Mika Unavailable Bogner PA-C, Maria Luisa Unavailable Anna ARREGUIN, Bradley Plascencia Unavailable Anna ARREGUIN, Bradley Plascencia Unavailable Isi Goodman MD Unavailable Teresa Tirado Unavailable Unavailable MAXINEISI SEGAL R Attending Unavailable TERESA MOHAMUD Referring Unavailable GANTA, MARILEE LUDIN Primary Care Unavailable MAXINEISI ALEXIS R Referring Unavailable GANTA, MARILEE LUDIN Primary Care Unavailable MAXINETERESA SEGALSHUA R Attending Unavailable MAXINEISI ALEXIS R Referring Unavailable GANTA, MARILEE LUDIN Primary Care Unavailable MAXINEISI SEGAL R Attending Unavailable GANTA, MARILEE LUDIN Primary Care Unavailable Daniel JAMES, Aaliyah Campbell Unavailable [phone] Wallace Hayden PA-Cadette Unavailable Blaze FERNANDES, Dr. Hunt Primary Care Provider Dr. Manuel Anderson DO Emergency Provider Brian FERNANDES, Dr. Cinthia Campbell Admit Provider Brian FERNANDES, Dr. Cinthia Campbell Other Provider Dr. Marbin Lizama DO Attending Provider Brian FERNANDES, Dr. Cinthia Campbell Attending Provider Dr. Marbin Lizama DO Other Provider Tamiko FERNANDES, Dr. Weber Attending Provider Unavailjacques Morrison MD, Dr. Weber Referring Provider Unavailjacques Morrison MD, Dr. Weber Primary Care Provider Unava gayla MORRISON MD, DR TIA Bowling Primary Care Physician Tia Clark Attending Unavailable Tia Clark Referring Unavailable Tia Morrison Primary Care Unavailable Cindy Collier Admitting Unavailable Magnolia Cullen Attending Unavailable Carroll, Fran Consulting Unavailable Ganta, Marilee Primary Care Unavailable Cindy Collier Consulting Unavailable Manuel Garay Consulting Unavailable Marbin Lizama Attending Unavailable Cinthia Torres Admitting Unavailable White, Cinthia L Consulting Unavailable Ganta, Marilee Primary Care Unavailable Leon Arias Consulting Unavailable Magnolia Cullen Attending Unavailable Magnolia Cullen Admitting Unavailable Ganta, Marilee Primary Care Unavailable White, Cinthia L Consulting Unavailable Manuel Garay Attending Unavailable White, Cinthia L Admitting Unavailable Ganta, Marilee Primary Care Unavailable Kayky, Jagdeep Consulting Unavailable White, Cinthia L Consulting Unavailable Terdennisky Jagdeep Attending Unavailable White, Cinthia L Admitting Unavailable Ganta, Marilee Primary Care Unavailable Katia, Jagdeep Consulting Unavailable Ganta, Marilee Primary Care Unavailable BarkHiral bhandari Attending Unavailable Ganta, Marilee Referring Unavailable Ganta, Marilee Primary Care Unavailable BarkHiral bhandari Attending Unavailable Ganta, Marilee Referring Unavailable Ganta, Marilee Primary Care Unavailable Tori Rossi Attending Unavailable [facility] Maryvaleta, Marilee Primary Care Unavailable Lori Lowery Attending Unavailable [facility] Maryvaleta, Marilee Primary Care Unavailable Gudla OLS, Tia Attending Unavailable [facility] Maryvaleta, Marilee Primary Care Unavailable Gudla OLS, Tia Attending Unavailable Gudla OLS, Tia Referring Unavailable [facility] Maryvaleta, Marilee Primary Care Unavailable Gudla OLS, Tia Attending Unavailable [facility] Maryvaleta, Marilee Primary Care Unavailable Gudla OLS, Tia Attending Unavailable [facility] Maryvaleta, Marilee Primary Care Unavailable Gudla OLS, Tia Attending Unavailable [facility] Maryvaleta, Marilee Primary Care Unavailable Gudla OLS, Tia Attending Unavailable [facility] Maryvaleta, Marilee Primary Care Unavailable Gudla OLS, Tia Attending Unavailable BarkHiral bhandari Attending Unavailable [facility] Maryvaleta, Marilee Primary Care Unavailable Ganta, Marilee Referring Unavailable Carroll, Fran Attending Unavailable [facility] Maryvaleta, Marilee Primary Care Unavailable Cindy Collier Referring Unavailable Carroll, Fran Attending Unavailable [facility] Maryvaleta, Marilee Primary Care Unavailable Ganta, Marilee Primary Care Unavailable Corrine Figueroa Attending Unavailable Ganta, Marilee Referring Unavailable Marbin Lizama Attending Unavailable White, Cinthia L Admitting Unavailable Ganta, Marilee Primary Care Unavailable White, Cinthia L Consulting Unavailable Marbin Lizama Consulting Unavailable Alda Marbin Consulting Unavailable Manuel Garay Attending Unavailable Marbin Lizama Admitting Unavailable Ganta, Marilee Primary Care Unavailable Manuel Garay Consulting Unavailable White, Cinthia L Attending Unavailable Ganta, Marilee Primary Care Unavailable Malorie Siegel Attending Unavailable Ganta, Marilee Primary Care Unavailable Esther Bond Consulting Unavailable White, Cinthia L Admitting Unavailable White, Cinthia L Consulting Unavailable Koram, Malorie Genevieve Consulting Unavailable Manuel Garay Attending Unavailable Yan Phelps Consulting Unavailable Guerrero, Dami Consulting Unavailable Regino Bo Consulting Unavailable Moe Cavazos Consulting Unavailable MeghaeiMikey fritz Consulting Unavailable Nick, Amilcar Consulting Unavailable Habtegebriel, Yahaira Consulting Unavailab le Dand, Fabián Consulting Unavailable Harrington, Jann Consulting Unavailable Jigar, Luz Consulting Unavailable Aljundi, Lamia Consulting Unavailable Washington, Dave Consulting Unavailable Irukulla, Carter Consulting Unavailable Jeff, Brian Consulting Unavailable Farhana Max Consulting Unavailable , Merrill Consulting Unavailable Sagar Garner Consulting Unavailable Manuel Garay Consulting Unavailable Manuel Garay Attending Unavailable Manuel Garay Consulting Unavailable Marbin Lizama Attending Unavailable Cindy Collier Admitting Unavailable Cindy Collier Attending Unavailable Carroll, Forman Consulting Unavailable [facility] Unavailable Cindy Collier Consulting Unavailable White, Cinthia L Attending Unavailable White, Cinthia L Admitting Unavailable White, Cinthia L Consulting Unavailable [facility] Unavailable Cindy Collier Admitting Unavailable Manuel Garay Attending Unavailable Carroll, Fran Consulting Unavailable [facility] Unavailable Cindy Collier Consulting Unavailable Manuel Garay Consulting Unavailable Fran Hodges Attending Unavailable Magnolia Cullen Consulting Unavailable Esther Bond Attending Unavailable White, Cinthia L Attending Unavailable [facility] Unavailable Manuel Garay Attending Unavailable White, Cinthia L Admitting Unavailable Esther Bond Consulting Unavailable White, Cinthia L Consulting Unavailable Koram, Malorie Genevieve Consulting Unavailable Yan Phelps Consulting Unavailable Guerrero, Dami Consulting Unavailable Regino Bo Consulting Unavailable Moe Cavazos Consulting Unavailable Mikey Hebert Consulting Unavailable Nick, Amilcar Consulting Unavailable Habtegebriel, Yahaira Consulting Unavailab le Dand, Fabián Consulting Unavailable Harrington, Jann Consulting Unavailable Jigar, Luz Consulting Unavailable Aljundi, Lamia Consulting Unavailable Washington, Dave Consulting Unavailable Irukulla, Carter Consulting Unavailable Jeff, Brian Consulting Unavailable Farhana Max Consulting Unavailable , Merrill Consulting Unavailable Sagar Garner Consulting Unavailable Gudla, Tia Primary Care Unavailable Gudla Tia OLIVO Attending Unavailable Marbin Lizama Consulting Unavailable Marbin Lizama Admitting Unavailable Manuel Garay Attending Unavailable Ganta, Marilee Primary Care Unavailable Magnolia Cullen Attending Unavailable Kotsonis, Leon F Consulting Unavailable Magnolia Cullen Attending Unavailable Subhash, Magnolia Admitting Unavailable Ganta, Marilee Primary Care Unavailable Stacy Cullenyn Consulting Unavailable Kotsonis, Leon F Attending Unavailable Ganta, Marilee Primary Care Unavailable Lori Lowery Attending Unavailable Kotsonis, Leon F Consulting Unavailable Kotsonis, Leon F Admitting Unavailable Magnolia Cullen Attending Unavailable Ganta, Marilee Primary Care Unavailable Subhash Magnolia Consulting Unavailable Ganta, Marilee Primary Care Unavailable Hiral Hansen Referring Unavailable Hiral Hansen Attending Unavailable Gudla, Tia Primary Care Unavailable Tamiko Tia Attending Unavailable Gudla, Tia Referring Unavailable FRANKLYN STAPLETON MD Admitting Unavailable PIETER FERNANDES, FRANKLYN Attending Unavailable MISTY HADDAD DO Attending Unavailable NOEMI WEST MD Admitting Unavailable PATITO JEFFRIES MD Consulting Unavailable MAVIS MASON MD Consulting Unavailable EPI FERNÁNDEZ DO Consulting Unavailable FRANKLYN STAPLETON MD Consulting Unavailable TOM NINA MD Consulting Unavailable LALITA FERNANDES, DR GOTTLIEB Consulting Unavailable NOEMI WEST MD Consulting Unavailable JOHANA MOREIRA MD Consulting Unavailable CHEMO LOPEZ MD Consulting Unavailable DEJA FERNANDES, DR SALAS Consulting Unavailab RANI Adames MD Consulting Unavailable MAGALIS FERNANDES, KAYLAN Consulting Unavailable TAMIKO FERNANDES, DR TIA Bolwing Primary Care Unavaillidia FALK MD, ANSELMO Admitting Unavailable LALITA FERNANDES, DR GOTTLIEB Attending Unavailable GANTA, MARILEE LUDIN Primary Care Unavailable [employer] [facility] [employer] [employer] CLIN[facility], MARILEE LUDIN Primary Care Unavailable TABATHA PAGE DO Attending Unavailable BLAZE FERNANDES, DR MARILEE Flores Primary Care UnavailJAMILA Alba MD Attending Unavailable BLAZE FERNANDES, DR MARILEE Flores Primary Care Unavaillidia MORRISON MD, DR TIA Bowling Primary Care UnavailMAVIS Abdalla MD Attending Unavailable NOEMI WEST MD Consulting Unavailable GANTA DR MARILEE FERNANDES Primary Care Unavailabl e OUSMANE FERNANDES, LONG Fritz Attending Unavailable KATALINA FERNANDES, JAMILA Attending Unavailable BLAZE FERNANDES, DR MARILEE Flores Primary Care Unavailabl e GANTA, MARILEE Primary Care Unavailable GANTA, MARILEE Attending Unavailable GANTA, MARILEE Primary Care Unavailable GANTA, MARILEE Attending Unavailable OLDER, MIKA Referring Unavailable GANTA, MARILEE Primary Care Unavailable GANTA, MARILEE Referring Unavailable GANTA, MARILEE Primary Care Unavailable GANTA, MARILEE Primary Care Unavailable GANTA, MARILEE Attending Unavailable GANTA, MARILEE Primary Care Unavailable RAJESH CORONA Attending Unavailable GANTA, MARILEE Primary Care Unavailable OLDER, MIKA Attending Unavailable GANTA, MARILEE Primary Care Unavailable GANTA, MARILEE Attending Unavailable JEONG, HILDA D Attending Unavailable GANTA, MARILEE Primary Care Unavailable OLDER, MIKA Referring Unavailable GANTA, MARILEE Primary Care Unavailable OLDER, MIKA Attending Unavailable GANTA, MARILEE Primary Care Unavailable GANTA, MARILEE Primary Care Unavailable OLDER, MIKA Attending Unavailable GANTA, MARILEE Primary Care Unavailable GANTA, MARILEE Attending Unavailable JEONG, HILDA D Attending Unavailable JEONG, HILDA D Referring Unavailable GANTA, MARILEE Primary Care Unavailable OLDER, MIKA Referring Unavailable GANTA, MARILEE Primary Care Unavailable JOSÉ LUIS, KEELY Attending Unavailable GANTA, MARILEE LUDIN Primary Care Unavailable CHENBHANICH, JIRAT Attending Unavailable GANTA, MARILEE LUDIN Primary Care Unavailable MIKAYLA NAVA I Attending Unavailable GANTA, MARILEE LUDIN Primary Care Unavailable JOSÉ LUIS, KEELY Attending Unavailable CHENBHANICH, JIRAT Referring Unavailable GANTA, MARILEE LUDIN Primary Care Unavailable Allergies Allergy Classification Reported Allergen(s) Allergy Type Date of Onset Reaction(s) Facility Anti-Epileptic Agents (1 source) Phenytoin Drug Allergy 6 [facility] (20 sources) phenytoin; Translations: [PHENYTOIN SODIUM EXTENDED] Drug Allergy 6 Unknown [facility] [place] Repository (1 source) OTHER; Translations: [OTHER] Propensity to adverse reactions (disorder) [facility] [place] Repository (20 sources) apis mellifera venom; Translations: [BEE STING] allergy to substance 3 Anaphylaxis [facility] Work Phone: (20 sources) BEES,WASPS [Other] Propensity to adverse reactions 6 Swelling [facility] Work Phone: (20 sources) mosquitoes [Other] Propensity to adverse reactions 6 [facility] (4 sources) Phenytoin; Translations: [phenytoin sodium] Drug Allergy 3 Unknown [facility] (4 sources) insect venom; Translations: [insect venom] Allergy to substance 3 Itching [facility] Comment on above: SPECIFICALLY - MOSQU GINA BITES (3 sources) venom-honey bee Allergy to substance 3 Unknown [facility] (6 sources) Bee/Wasp/Ant venom Allergy to [facility] (16 sources) Phenytoin; Translations: [phenytoin] Drug Allergy 6 Unknown [facility] (6 sources) misc non-codified allergy Allergy to [facility] (20 sources) Bumetanide; Translations: [BUMETANIDE] Drug Allergy 5 Diarrhea, Other: See Comments [facility] (1 source) venom-honey bee Drug allergy (disorder) 5 [facility] Repository Medications Current Medications Medication Drug Class(es) Dates Sig (Normalized) Sig (Original) [id number] 200 actuat albuterol 0.09 mg/actuat metered dose inhaler (20 sources) beta2-Adrenergic Agonist Start: 02-07-2023 End: 09-13-2024 take 2 puff(s) by inhalation every four hours as needed for wheezing albuterol HFA (VENTOLIN HFA) 90 mcg/actuation inhaler Indications: Moderate persistent asthma, unspecified whether complicated (HCC) Inhale 2 puffs as instructed every 4 hours as needed for wheezing/shortness of breath. 1 each 09/13/2024 Active Start: 05-30-2021 take 2 puff(s) by in halation every four hours as needed for wheezing albuterol HFA (VENTOLIN HFA) 90 mcg/actuation inhaler Indications: Bronchitis Inhale 2 Puffs as instructed every 4 hours as needed for wheezing/shortness of breath. 1 Each 3 05/30/2021 Active Start: 05-22-2021 End: 02-24-2024 Albuterol Sulfate 90 mcg/act uation HFA aerosol inhaler Discontinued 2 NMA INHALATION EVERY 6 HOURS as needed for shortness of breath or wheezing May 22, 2021 12:00am February 24, 2024 4:56pm Start: 05-22-2021 take 1 puff(s) by in halation every six hours Albuterol Sulfate Active 2 PUFF INHALATION EVERY 6 HOURS May 22, 2021 12:00am Start: 12-09-2012 End: 02-08-2013 take 2.5 mg by inhalation twice daily Albuterol Sulfate 2.5 MG/3 ML Vial.Neb. Discontinued 2.5 mg INHALATION TWICE A DAY December 09, 2012 12:00am February 08, 2013 9:28am Comment on above: Inhale 2 Puffs as in structed every 4 hours as needed for wheezing/shortness of breath. albuterol 0.833 mg/ml / ipratropium bromide 0.167 mg/ml inhalation solution (3 sources) Anticholinergic, beta2-Adrenergic Agonist Start: End: take 3 mL by inhalation four times daily for chronic obstructive pulmonary disease ipratropium-albut letty (DUONEB) 0.5 mg-3 mg(2.5 mg base)/3 mL nebu Inhale 3 mL as instructed four times daily. For COPD. 08/27/2024 09/26/2024 Active aluminum hydroxide 40 mg/ml / magnesium hydroxide 40 mg/ml oral suspension (1 source) Start: take 1 dose by mouth every four hours aluminum hydroxide-magnesi um hydroxide 200 mg-200 mg/5 mL oral suspension Dose = 30 mL, Oral, q4h, 0 Refill(s) Start Date: 08/20/24 Status: Ordered Repeat number: 1 aspirin 81 mg chewable tablet (20 sources) Platelet Aggregation Inhibitor, Nonsteroidal Anti-inflammatory Drug Start: take 1 tablet by mouth once daily aspirin 81 mg chewable tablet Take 1 tablet by mouth once daily. 90 tablet 1 09/24/2024 Active Start: 05-13-2024 aspirin 81 mg oral delayed release tablet Dose : 81 mg = 1 tab(s), Oral, Daily, 0 Refill(s) Start Date: 05/13/24 Status: Ordered Repeat number: 1 Start: 04-28-2024 Aspirin 81 mg tablet,chewable Active 1 {tbl} PO DAILY April 28, 2024 1:00am Start: 01-02-2024 End: 09-21-2024 take 1 tablet by mouth at breakfast Aspirin 81 mg Tablet,Chewable Discontinued 81 mg PO WITH BREAKFAST 0 January 02, 2024 12:00am February 24, 2024 4:57pm atorvastatin 20 mg oral tablet (3 sources) HMG-CoA Reductase Inhibitor Start: 05-30-2024 atorvastatin 20 mg oral tablet Dose : 20 mg = 1 tab(s), Oral, Daily, # 30 tab(s), 0 Refill(s) Start Date: 05/30/24 Status: Ordered Quantity: 30.0 Unit: tab(s) Repeat number: 1 bisacodyl 0.333 mg/ml enema (2 sources) Stimulant Laxative Start: 08-20-2024 take 1 dose rectal route once daily as needed for constipation bisacodyl 10 mg rectal enema Dose : 10 mg = 1 EA, Rectal, qDay, PRN as needed for constipation, # 1 EA, 0 Refill(s) Start Date: 08/20/24 Status: Ordered Quantity: 1.0 Unit: EA Repeat number: 1 budesonide 0.25 mg/ml inhalation suspension (8 sources) Corticosteroid Start: 08-28-2024 take 0.5 mg by inhalation once daily in the morning budesonide (PULMICORT) 0.5 mg/2 mL nebulizer solution Inhale 0.5 mg as instructed every morning. 08/28/2024 Active Start: 08-20-2024 take 1 dose by inhal ation once daily budesonide 0.5 mg/2 mL inhalation suspension Dose : 0.5 mg = 2 mL, Inhalation, qDay, # 60 mL, 0 Refill(s) Start Date: 08/20/24 Status: Ordered Quantity: 60.0 Unit: mL Repeat number: 1 Start: 05-30-2024 End: 06-29-2024 take 1 dose [...] Start: 04-02-2023 take 2 puff(s) by mo ut twice daily budesonide-formoterol (SYMBICORT) 160-4.5 mcg/actuation inhaler INHALE 2 PUFFS BY MOUTH TWICE DAILY ( INSTRUCTED) *SHAKE WELL 10.2 g 10 04/02/2023 Active Start: 08-08-2022 take 2 puff(s) by mo ut twice [...] 05/04/2024 Discontinued (Med List Cleanup) Start: 09-30-2014 End: 12-26-2023 Budesonide-Formoterol 1 INHA LER inhaler Discontinued 2 NMA INHALATION TWICE A DAY September 30, 2014 12:00am December 26, 2023 7:15pm Start: 09-30-2014 take 1 puff(s) by in halation twice daily Budesonide-Formoterol Active 2 PUFF INHALATION TWICE A DAY September 30, 2014 12:00am Comment on above: INHALE 2 PUFFS BY MO UTH TWICE DAILY ( INSTRUCTED ) *SHAKE WELL, RINSE MOUTH AFTER USE* INHALE 2 PUFFS BY MO UTH TWICE DAILY ( INSTRUCTED) *SHAKE WELL bumetanide 2 mg oral tablet (20 sources) Loop Diuretic Start: 09-24-2024 take 1 tablet by mouth twice daily for edema bumetanide (BUMEX) 2 mg tablet Take 1 tablet by mouth two times a day. For edema. 180 tablet 1 09/24/2024 Active Start: 08-27-2024 bumetanide 1 m g oral tablet Dose : 2 mg = 2 tab(s), Oral, qPM, 0 Refill(s) Start Date: 08/27/24 Status: Ordered Repeat number: 1 Start: 08-27-2024 End: 09-21-2024 take 1 tablet by mouth twice daily for edema bumetanide (BUMEX) 2 mg tablet Take 2 mg by mouth two times a day. For edema. 08/27/2024 09/21/2024 Discontinued Start: 05-30-2024 End: 06-29-2024 bumetanide 1 mg oral tablet Dose : 1 mg = 1 tab(s), Oral, BID, # 60 tab(s), 0 Refill(s) Start Date: 05/30/24 Stop Date: 06/29/24 Status: Ordered Quantity: 60.0 Unit: tab(s) Repeat number: 1 Start: 03-01-2024 End: 04-29-2024 Bumetanide 1 mg tablet Disco ntinued 1 mg PO DAILY as needed for weight gain March 01, 2024 4:29pm April 29, 2024 5:56am Please take 1 dose for weightbearing greater than 2 pounds in a 24-hour period Start: 03-01-2024 End: 04-29-2024 take 1 tablet by mouth twice daily Bumetanide 1 mg tablet Discontinued 1 mg PO TWICE A DAY March 01, 2024 1:00am April 29, 2024 5:57am Start: 01-14-2024 End: 01-28-2024 take 1 tablet by mouth once daily bumetanide (BUMEX) 1 mg tablet Take 1 tablet by mouth once daily for 10 days. 5 tablet 1 01/14/2024 01/28/2024 Discontinued (Course of therapy completed) calcium carbonate 500 mg chewable tablet (7 sources) Start: 05-13-2024 calcium carbon ate 500 mg (200 mg elemental calcium) oral tablet, chewable Dose : 500 mg = 1 tab(s), Chewed, BID, # 60 tab(s), 0 Refill(s) Start Date: 05/13/24 Status: Ordered Quantity: 60.0 Unit: tab(s) Repeat number: 1 Start: 04-28-2024 take 1 tablet by erin th twice daily Calcium Carbonate (Oyster Shell Calcium) 500 mg calcium (1,250 mg) tablet Active 500 mg PO TWICE A DAY April 28, 2024 1:00am Start: 12-09-2012 End: 02-08-2013 take 2 tablets by mouth once daily Calcium Carbonate 500 MG tablet Discontinued 1000 mg PO DAILY@0800 December 09, 2012 12:00am February 08, 2013 9:28am Start: 12-09-2012 End: 02-08-2013 take 1000 mg by mouth once daily Calcium Carbonate Discontinued 1000 MG PO DAILY@0800 December 09, 2012 12:00am February 08, 2013 9:28am calcium carbonate 1250 mg / cholecalciferol 200 unt oral tablet (20 sources) Vitamin D Start: 09-24-2024 take 1 tablet by mouth twice daily at mealtime mrefrql-iixrsnwur-dnrcyxi D3 (OYSTER SHELL CALCIUM-VITAMIN D) 500 mg-5 mcg (200 unit) per tablet Take 1 tablet by mouth two times a day with meals. 62 tablet 11 09/24/2024 Active Start: 06-01-2015 End: 09-21-2024 take 1 tablet by mouth twice daily at mealtime hnxlpjb-graqarhsp-zfyykhi D3 (OYSTER SHE LL CALCIUM-VITAMIN D) 500 mg-5 mcg (200 unit) per tablet Take 1 tablet by mouth two times a day with meals. 62 tablet 11 05/20/2024 09/21/2024 Discontinued Start: 10-26-2013 End: 02-24-2024 Calcium Carbonate-Vitamin D3 1 EACH tablet Discontinued 1 NMA PO TWICE A DAY October 26, 2013 12:00am February 24, 2024 4:58pm Start: 10-26-2013 Calcium Carbon ate-Vitamin D3 Active 1 EACH PO TWICE A DAY October 26, 2013 12:00am Comment on above: Take 1 tablet by erin th twice daily with meals. Take 1 tablet by erin th two times a day with meals. carvedilol 3.125 mg oral tablet (20 sources) alpha-Adrenergic Rubi, beta-Adrenergic Rubi Start: 4 End: take 1 tablet by mouth twice daily carvedilol (COREG) 3.125 mg tablet Take 1 tablet by mouth two times a day. 180 tablet 3 01/12/2024 01/11/2025 Active cephalexin 500 mg oral tablet (2 sources) Cephalosporin Antibacterial Start: End: cephalexin 500 mg oral tablet Dose : 500 mg = 1 tab(s), PO, QID, X 10 day(s), # 40 tab(s), 0 Refill(s), 05/18/24 12:31:00 PM EDT Start Date: 05/08/24 Stop Date: 05/18/24 Status: Ordered Quantity: 40.0 Unit: tab(s) Repeat number: 1 Start: 10-31-2023 End: 12-26-2023 take 1 capsule by mouth every six hours Cephalexin 500 mg capsule Discontinued 500 mg PO EVERY 6 HOURS October 31, 2023 12:00am December 26, 2023 7:15pm Certavite-Antioxidant 18-400 mg-mcg tablet (5 sources) Start: 06-01-2015 take 1 tablet by mouth once daily Certavite-Antioxidant 18-400 mg-mcg tablet Take 1 tablet by mouth once daily. 06/01/2015 Active cetirizine hydrochloride 10 mg oral tablet (20 sources) Histamine-1 Receptor Antagonist Start: 11-18-2019 take 1 tablet by mouth once daily cetirizine (ZYRTEC) 10 mg tablet Indications: Rash Take 1 tablet by mouth once daily. 150 tablet 11/18/2019 Active Comment on above: Take 1 tablet by erin th once daily. cholecalciferol 0.05 mg oral capsule (3 sources) Vitamin D Start: 09-28-2024 take 1 capsule by mouth once daily Cholecalciferol, Vitamin D3, (VITAMIN D-3) 50 mcg (2,000 unit) cap Take 1 capsule by mouth once daily. 90 capsule 3 09/28/2024 Active clotrimazole 10 mg/ml topical cream (20 sources) Azole Antifungal Start: 05-13-2024 clotrimazole 1% topical cream Apply 1 cristian, [...] 01/26/2021 Active Start: 06-01-2016 End: 04-08-2017 Clotrimazole 1 % cream Activ e 1 NMA TOPICAL TWICE A DAY April 08, 2017 [...] by mouth once daily fish oil concentrate (Powderly-3) 120-180 mg capsule Take 1 capsule (1 g) by mouth once daily. 06/01/2015 Active Start: 06-01-2015 take 1 capsule by mo [facility] once daily Fish Oil 1000 MG Oral Capsule TAKE 1 CAPSULE DAILY. Quantity: 0 Refills: 0 Ordered: 01-Jun-2015 DO Start : 01-Jun-2015 Active docusate sodium 50 mg / sennosides, halfway 8.6 mg oral tablet (1 source) Start: [...] 10 days. 20 tablet 11/13/2023 11/23/2023 Active empagliflozin 10 mg oral tablet (9 sources) Sodium-Glucose Cotransporter 2 Inhibitor Start: 09-24-2024 take 1 tablet by mouth once daily empagliflozin (JARDIANCE) 10 mg tablet Take 1 tablet by mouth once daily. 90 tablet 1 09/24/2024 Active Start: 08-27-2024 End: 09-21-2024 take 1 tablet by mouth once daily empagliflozin (JARDIANCE) 10 mg tablet Take 1 tablet by mouth once daily. 90 tablet 1 09/24/2024 Active EPINEPHrine (20 sources) alpha-Adrenergic Agonist, beta-Adrenergic Agonist, Catecholamine Start: 05-13-2024 EPINEPHrine 0.3 mg injectable kit Dose : 0.3 mg = 1 EA, Intramuscular, AsDirected, PRN Allergic reaction, # 1 kit(s), 0 Refill(s) Start Date: 05/13/24 Status: Ordered Quantity: 1.0 Unit: kit(s) Repeat number: 1 Start: 04-28-2024 Epinephrine 0. 3 mg/0.3 mL auto-injector Active 0.3 mg IM DAILY as needed for anaphylaxis April 28, 2024 1:00am Start: 06-01-2016 End: 02-24-2024 inject 0.3 mg by intramuscular injection once as needed Epinephrine 0.3 MG syringe Discontinued 0.3 mg IM ONE TIME as needed for Anaphylaxis June 01, 2016 12:00am February 24, 2024 4:58pm Start: 06-01-2015 End: 03-12-2024 EPINEPHrine (EPIPEN) 0.3 [...] dose nasal spray (20 sources) Corticosteroid Start: 09-28-2024 fluticasone proprionate NASAL 50 mcg/ spray 0 Refill(s) Start Date: 09/28/24 Status: Ordered Repeat number: 1 Start: 05-13-2024 take 50 ug nasal rou te once daily in the morning fluticasone proprionate NASAL 50 mcg/ spray 50 mcg Dose = 1 spray(s), Nostril, each, qAM, 0 Refill(s) Start Date: 05/13/24 Status: Ordered Repeat number: 1 Start: 04-08-2017 Fluticasone Pr opionate Active 50 [...] Start : 17-Oct-2014 Active Start: 10-26-2013 End: 09-07-2024 take 2 spray(s) nasal route once daily fluticasone (FLONASE) 50 mcg/actuation nasal spray INSTILL 2 SPRAYS IN EACH NOSTRIL DAILY 16 g 10 09/07/2024 Active Start: 10-26-2013 End: 04-08-2017 Fluticasone Propionate Disco ntinued 2 SPRAY NASAL DAILY October 26, 2013 12:00am April 08, 2017 10:35am Comment on above: INSTILL 2 SPRAYS IN EACH NOSTRIL DAILY *SHAKE GENTLY BEFORE USING* INSTILL 2 SPRAYS IN EACH NOSTRIL DAILY 14 actuat fluticasone furoate 0.1 mg/actuat / vilanterol 0.025 mg/actuat dry powder inhaler (20 sources) Corticosteroid, beta2-Adrenergic Agonist Start: 04-28-2024 Fluticasone Furoate-Vilanterol (Breo Ellipta) 100-25 mcg/dose blister with device Active 1 NMA INHALATION DAILY April 28, 2024 1:00am Start: 04-09-2024 End: 09-07-2024 take 1 dose by inhalation once daily fluticasone-vilanterol (BREO ELLIPTA) 100-25 mcg/dose inhaler Indications: Mild intermittent asthma without complication (HCC) Inhale 1 inhalation as instructed once daily. 1 each 3 09/07/2024 Active 60 actuat formoterol fumarate 0.005 mg/actuat / mometasone furoate 0.1 mg/actuat metered dose inhaler (20 sources) Corticosteroid, beta2-Adrenergic Agonist Start: 02-09-2024 take 2 puff(s) by inhalation twice daily mometasone-formoterol (DULERA) 100-5 mcg/actuation inhaler Inhale 2 Puffs as instructed two times a day. 13 g 10 02/09/2024 Active Start: 07-09-2023 take 2 puff(s) by mo [facility] twice daily Dulera 100-5 mcg/actuation inhaler INHALE [...] 01/12/2024 01/28/2024 Discontinued (Cost of medication) Start: 10-31-2023 End: 01-28-2024 take 1 tablet by mouth once daily furosemide (LASIX) 40 mg tablet Take 1 tablet by mouth once daily. 30 tablet 11 01/08/2024 01/28/2024 Discontinued (Course of therapy completed) Start: 02-05-2021 End: 01-08-2024 take 1 tablet by mouth every other day furosemide (LASIX) 20 mg tablet Indications: Lymphedema TAKE ONE TABLET BY MOUTH EVERY OTHER DAY FOR LYMPHEDEMA 30 tablet 11 11/18/2023 01/08/2024 Discontinued Start: 11-05-2018 take 1 tablet by erin once daily Furosemide 20 MG Oral Tablet TAKE 1 TABLET DAILY DIRECTED. Quantity: 0 Refills: 0 Ordered: 05-Nov-2018 DO Start : 05-Nov-2018 Active Start: 12-09-2012 End: 02-08-2013 take 1 tablet by mouth once daily Furosemide 20 MG tablet Discontinued 20 mg PO DAILY December 09, 2012 12:00am February [...] 1 application to affected area twice daily. Glucagon Emergency Kit for Low Blood Sugar 1 mg injection (2 sources) Start: 5 Glucagon Emergency Kit for Low Blood Sugar 1 mg injection Dose : 1 mg =, Intramuscular, AsDirected, PRN Hypoglycemia, 0 Refill(s) Start Date: 08/20/24 Status: Ordered Repeat number: 1 guaiFENesin (3 sources) Start: 5 take 10 mL by mouth every four hours as needed for cough guaiFENesin 10 mL, Oral, q4h, PRN for cough, # 120 mL, 0 Refill(s) Start Date: 08/20/24 Status: Ordered Quantity: 120.0 Unit: mL Repeat number: 1 Start: 05-30-2024 End: 06-13-2024 guaiFENesin 600 mg oral tabl et, extended release Dose : 600 mg = 1 tab(s), Oral, BID, X 14 day(s), # 28 tab(s), 0 Refill(s), 06/13/24 9:10:00 AM EDT Start Date: 05/30/24 Stop Date: 06/13/24 Status: Ordered Quantity: 28.0 Unit: tab(s) Repeat number: 1 ammonium lactate 120 mg/ml topical cream (20 sources) Start: 10-07-2024 ammonium lacta te (LAC-HYDRIN) 12 % cream APPLY TOPICALLY TO AFFECTED AREA(S) ON LEGS AT BEDTIME 280 g 10 10/07/2024 Active Start: 05-13-2024 ammonium lacta te 12% topical cream Apply 1 cristian, Topical, qHS, # 140 gram(s), 0 Refill(s), Cream, 143 Start Date: 05/13/24 Status: Ordered Quantity: 140.0 Unit: g Repeat number: 1 Start: 01-26-2021 End: 10-04-2024 ammonium lactate (LAC-HYDRIN ) 12 % cream APPLY TOPICALLY TO AFFECTED AREA(S) ON LEGS AT BEDTIME 280 g 11/24/2023 10/04/2024 Discontinued Start: 10-26-2013 Ammonium Lacta te 140 GM cream Active 1 APPLICATIO TOPICAL DAILY October 26, 2013 12:00am Comment on above: APPLY TOPICALLY TO A FFECTED AREA(S) ON LEGS AT BEDTIME levothyroxine sodium 0.1 mg oral tablet (20 sources) l-Thyroxine Start: 09-25-19 take 1 tablet by mouth once daily 1 hour(s) before breakfast levothyroxine (SYNTHROID) 100 mcg tablet take one tablet by mouth daily one hour before breakfast 31 tablet 10 09/24/2024 Active Start: 05-13-2024 levothyroxine 100 mcg (0.1 mg) oral tablet Dose : 100 mcg = 1 tab(s), Oral, qDay, # 30 tab(s), 0 Refill(s) Start Date: 05/13/24 Status: Ordered Quantity: 30.0 Unit: tab(s) Repeat number: 1 Start: 08-16-2022 End: 09-21-2024 take 1 tablet by mouth once daily 1 hour(s) before breakfast levothyroxine (SYNTHROID) 100 mcg tablet take one tablet by mouth daily one hour before breakfast 31 tablet 07/21/2023 09/21/2024 Discontinued Start: 10-12-2020 End: 09-05-2021 take 1 tablet by mouth once daily 1 hour(s) before breakfast levothyroxine (SYNTHROID) 100 mcg tablet TAKE ONE TABLET BY MOUTH DAILY ONE HOUR BEFORE BREAKFAST 31 tablet 09/05/2021 Active Start: 04-21-2019 End: 12-26-2023 take 2 tablets by mouth once daily Levothyroxine 50 mcg tablet Discontinued 100 ug PO DAILY April 21, 2019 4:26pm December 26, 2023 7:13pm Start: 04-21-2019 take 100 ug by mouth once mallory y Levothyroxine Active 100 MCG PO DAILY April 21, 2019 4:26pm Start: 10-26-2013 End: 04-21-2019 take 1 tablet by mouth once daily Levothyroxine 50 MCG tablet Discontinued 50 ug PO DAILY October 26, 2013 12:00am April 21, 2019 4:27pm Start: 12-09-2012 End: 02-08-2013 take 1 tablet by mouth once daily Levothyroxine 50 MCG tablet Discontinued 50 ug PO DAILY December 09, 2012 12:00am February 08, 2013 9:28am Comment on above: TAKE ONE TABLET BY M OUTH DAILY ONE HOUR BEFORE BREAKFAST lisinopril 5 mg oral tablet (20 sources) Angiotensin Converting Enzyme Inhibitor Start: End: take 1 tablet by mouth once [...] t herapy metOLazone 5 mg oral tablet (14 sources) Thiazide-like Diuretic Start: 05-09-2024 End: 05-09-2025 take 1 tablet by mouth every week metOLazone (Zaroxolyn) 5 mg tablet Indications: Chronic right-sided heart failure , Right ventricular dysfunction , Bilateral lower extremity edema Take 1 tablet (5 mg) by mouth 1 (one) time per week. 4 tablet 11 05/09/2024 05/09/2025 Active Start: 02-06-2024 End: 03-12-2024 take 1 tablet by mouth once daily Metolazone 2.5 mg tablet Discontinued 2.5 mg PO DAILY February 17, 2024 1:00am February 19, 2024 2:15pm 24 hr metoprolol succinate 25 mg extended release oral tablet (1 source) beta-Adrenergic Rubi Start: 05-30-2024 End: 06-29-2024 metoprolol succinate 25 mg oral TABLET extended release Dose : 12.5 mg = 0.5 tab(s), Oral, qDay, Do not crush or chew (controlled release), # 15 tab(s), 0 Refill(s) Start Date: 05/30/24 Stop Date: 06/29/24 Status: Ordered Quantity: 15.0 Unit: tab(s) Repeat number: 1 Milk of Magnesia 8% oral suspension (2 sources) Start: 08-20-2024 Milk of Magnes ia 8% oral suspension 2.4 gram(s) Dose = 30 mL, Oral, qHS, PRN as needed for constipation, # 300 mL, 0 Refill(s) Start Date: 08/20/24 Status: Ordered Quantity: 300.0 Unit: mL Repeat number: 1 Mometasone-Formot letty (Dulera) 100-5 mcg/actuation HFA aerosol inhaler (1 source) Start: 12-26-2023 Mometasone-For mot letty (Dulera) 100-5 mcg/actuation HFA aerosol inhaler Active 2 NMA INHALATION TWICE A DAY December 26, 2023 12:00am Multivitamin,Tx-I annelise-Minerals (2 sources) Start: 10-26-2013 take 1 tablet by mouth once daily Multivitamin,Tx-I annelise-Minerals Active 1 TABLET PO DAILY October 26, 2013 12:00am multivitamin-ferr ous fumarate-folic acid (CERTAVITE-ANTIOX IDANT) (20 sources) Start: 09-24-2024 take 1 tablet by mouth once daily multivitamin-ferr ous fumarate-folic acid (CERTAVITE-ANTIOX IDANT) Take 1 tablet by mouth once daily. 31 tablet 10 09/24/2024 Active Start: 09-19-2023 End: 09-21-2024 take 1 tablet by mouth once daily multivitamin-ferrous fumarate-folic acid (CERTAVITE-ANTIOXIDANT) Take 1 tablet by mouth once daily. 31 tablet 10 09/19/2023 09/21/2024 Discontinued Start: 09-19-2023 take 1 tablet by erin th once [...] 1 tablet by erin th once daily. Fbqhysyidnzn-Svcz-Wtcoa Acid (A Thru Z Advanced Formula) 18-400 mg-mcg tablet (1 source) Start: 12-26-2023 Gywbxjjradwu-Zdyp-Ipevi Acid (A Thru Z Advanced Formula) 18-400 mg-mcg tablet Active 1 {tbl} PO DAILY December 26, 2023 12:00am Yenqmbofpjdb-Qvrz-Cuggx Acid (Certavite-Antioxidant) 18-400 mg-mcg tablet (1 source) Start: 04-28-2024 Ubuhjmxqueps-Jvtt-Bglzy Acid (Certavite-Antioxidant) 18-400 mg-mcg tablet Active 1 {tbl} PO DAILY April 28, 2024 1:00am norethindrone 0.35 mg oral tablet (20 sources) Start: 06-20-2021 End: 03-12-2024 IRAIDA 0.35 mg tablet 06/20/2021 03/12/2024 Discontinued Start: 06-20-2021 IRAIDA 0.35 m g tablet 06/20/2021 Active Start: 06-20-2021 IRAIDA 0.35 m g tablet Start: 05-23-2021 End: 05-24-2024 take 1 tablet by mouth once daily IRAIDA 0.35 mg tablet Take 1 tablet by mouth once daily. 03/12/2024 Active nystatin 100 unt/mg topical powder (20 sources) Polyene Antifungal Start: 10-07-2024 nystatin (N YAMYC) powder APPLY TOPICALLY TWICE DAILY TO AFFECTED AREA(S) ON ABDOMINAL FOLDS 60 g 10 10/07/2024 Active Start: 05-13-2024 nystatin 100,0 00 units/g topical powder Apply 1 cristian, Topical, qHS, 0 Refill(s), 143 Start Date: 05/13/24 Status: Ordered Repeat number: 1 Start: 07-19-2020 End: 10-04-2024 nystatin (NYAMYC) powder CRISTIAN LY TOPICALLY TWICE DAILY TO AFFECTED AREA(S) ON ABDOMINAL FOLDS 60 g 10 07/09/2023 10/04/2024 Discontinued Start: 06-01-2016 Nystatin 1 CRISTIAN LIC bottle Active 1 NMA TOPICAL TWICE A DAY June 01, 2016 12:00am Start: 06-01-2015 nystatin (Myco statin) 100,000 unit/gram powder APPLY TOPICALLY TWICE DAILY TO AFFECTED AREA(S) ON ABDOMINAL FOLDS 06/01/2015 Active Comment on above: APPLY TOPICALLY TWIC E DAILY TO AFFECTED AREA(S) ON ABDOMINAL FOLDS *EXTERNAL USE ONLY* omega-3 acid ethyl esters (halfway) 1000 mg oral capsule (2 sources) Start: 05-13-2024 omega-3 polyunsaturated fatty acids ethyl esters 1000 mg oral capsule Dose : 2,000 mg = 2 cap(s), Oral, qDay, # 120 cap(s), 0 Refill(s) Start Date: 05/13/24 Status: Ordered Quantity: 120.0 Unit: cap(s) Repeat number: 1 Start: 06-01-2015 take 1 capsule by mo uth once daily Fish Oil 1000 MG Oral Capsule TAKE 1 CAPSULE DAILY. Refills: 0 Start : 01-Jun-2015 Active Powderly-3 Fatty Acids 1,000 mg capsule (1 source) Start: 02-17-2024 take 1 capsule by mouth once daily Powderly-3 Fatty Acids 1,000 mg capsule Active 1000 mg PO DAILY February 17, 2024 1:00am Powderly-3 Fatty Acids-Fish Oil (2 sources) Start: 10-26-2013 Powderly-3 Fatty Acids-Fish Oil Active 1 EACH PO DAILY October 26, 2013 12:00am Lunhi-4-YGD-EPA-Fish Oil 1,000 mg (120 mg-180 mg) cap (20 sources) Start: 08-22-2023 take 1 capsule by mouth once daily Lvveq-1-RQO-EPA-Fish Oil 1,000 mg (120 mg-180 mg) cap Take 1 capsule by mouth once daily. 31 capsule 10 08/22/2023 Active Start: 08-08-2022 End: 08-22-2023 take 1 capsule by mouth once daily Bxwaj-5-DEN-EPA-Fish Oil 1,000 mg (120 mg-180 mg) cap TAKE ONE CAPSULE BY MOUTH DAILY 31 capsule 10 08/08/2022 08/22/2023 Discontinued Start: 08-08-2022 take 1 capsule by [facility] once daily Vlqsp-7-NUA-EPA-Fish Oil 1,000 mg (120 mg-180 mg) cap TAKE ONE CAPSULE BY MOUTH DAILY 31 capsule 10 08/08/2022 Active Comment on above: TAKE ONE CAPSULE BY MOUTH DAILY OXYGEN, HOME THERAPY, (6 sources) OXYGEN, HOME THE RAPY, 3 L/min by Nasal Cannula route continuous. 4L at bedtime. Active perflutren lipid microspheres 1.3 mL in NaCl (PF) 0.9% 10 mL injection (DEFINITY) (20 sources) Start: 06-29-19 End: 09-28-19 perflutren lipid microspheres 1.3 mL in NaCl (PF) 0.9% 10 mL injection (DEFINITY) polyethylene glycol 3350 [id number] mg powder for oral solution (1 source) Osmotic Laxative Start: 05-31-19 take 17 doses by mouth once daily MiraLax oral powder for reconstitution Dose : 17 gram(s) =, Oral, qDay, # 510 gram(s), 0 Refill(s) Start Date: 05/30/24 Status: Ordered Quantity: 510.0 Unit: g Repeat number: 1 Senna Leaves (2 sources) Start: 08-21-19 Senna 8.6 mg oral tablet Dose : 8.6 mg = 1 tab(s), Oral, qHS, PRN as needed for constipation, # 100 tab(s), 0 Refill(s) Start Date: 08/20/24 Status: Ordered Quantity: 100.0 Unit: tab(s) Repeat number: 1 sertraline 25 mg oral tablet (14 sources) Serotonin Reuptake Inhibitor Start: 05-11-19 take 1 tablet by mouth once daily sertraline (ZOLOFT) 25 mg tablet Take 1 tablet by mouth once daily. 30 tablet 1 05/10/2024 Active 125 ml sodium chloride 9 mg/ml prefilled syringe (20 sources) Start: 06-29-19 End: 09-28-19 sodium chloride 0.9 % (flush) 10 mL (BD POSIFLUSH) Sodium Phosphate, Dibasic / Sodium Phosphate, Monobasic (2 sources) Start: 08-21-19 take 1 dose rectal route once daily Fleet Enema Dose = 1 EA, Rectal, qDay, 0 Refill(s) Start Date: 08/20/24 Status: Ordered Repeat number: 1 spironolactone 25 mg oral tablet (10 sources) Aldosterone Antagonist Start: 09-25-19 take 1 tablet by mouth once daily in the morning spironolactone (ALDACTONE) 25 mg tablet Take 1 tablet by mouth every morning. 90 tablet 1 09/24/2024 Active Start: 05-30-2024 End: 09-21-2024 take 1 tablet by mouth once daily in the morning spironolactone (ALDACTONE) 25 mg tablet Take 1 tablet by mouth every morning. 90 tablet 1 09/24/2024 Active Therapeutic Multiple Vitamins with Minerals, Zinc and Elderberry oral tablet, chewable (3 sources) Start: 05-13-2024 take 1 tablet by mouth once daily Therapeutic Multiple Vitamins with Minerals, Zinc and Elderberry oral tablet, chewable 1 tab, Chewed, qDay, # 60 tab(s), 0 Refill(s) Start Date: 05/13/24 Status: Ordered Quantity: 60.0 Unit: tab(s) Repeat number: 1 tirzepatide 5 mg/0.5 mL subcutaneous solution (2 sources) Start: 08-17-2024 inject 1 dose by subcutaneous injection every week tirzepatide 5 mg/0.5 mL subcutaneous solution Dose : 5 mg =, Subcutaneous, qWeek, rotate injection sites, # 2 mL, 0 Refill(s) Start Date: 08/17/24 Status: Ordered Quantity: 2.0 Unit: mL Repeat number: 1 torsemide 10 mg oral tablet (20 sources) Loop Diuretic Start: 04-28-2024 take 2 tablets by mouth twice daily Torsemide 10 mg tablet Active 20 mg PO TWICE A DAY April 28, 2024 1:00am Start: 04-09-2024 torsemide (DEM ADEX) 20 mg tablet Take an extra 20 [...] day. 120 tablet 2 03/12/2024 Active Start: 01-26-2024 End: 03-01-2024 take 1 tablet by mouth once daily Torsemide 20 mg tablet Discontinued 20 mg PO DAILY February 25, 2024 4:18pm March 01, 2024 2:56pm Start: 01-20-2024 End: 07-18-2024 take 1 tablet by mouth twice daily Torsemide 20 mg tablet Discontinued 20 mg PO TWICE A DAY February 24, 2024 1:00am February 25, 2024 4:19pm traMADol hydrochloride 50 mg oral tablet (1 [...] Repeat number: 1 Indication: Myalgia, other site Vitamin D3 125 mcg (5000 intl units) oral capsule (2 sources) Start: 08-20-2024 End: 11-05-2024 Vitamin D3 125 mcg (5000 intl units) oral capsule Dose : 125 mcg = 1 cap(s), Oral, qWeek, # 100 cap(s), 0 Refill(s) Start Date: 08/20/24 Stop Date: 11/05/24 Status: Ordered Quantity: 100.0 Unit: cap(s) Repeat number: 1 ZEPBOUND 5 mg/0.5 mL pen injector (6 sources) Start: 07-29-2024 inject 5 mg by subcutaneous injection every week ZEPBOUND 5 mg/0.5 mL pen injector Inject 5 mg subcutaneously one time a week. 07/29/2024 Active Completed/Discontinued Medications Medication Drug Class(es) Dates Sig (Normalized) Sig (Original) acetaminophen 650 mg rectal suppository (20 sources) Start: 08-20-2024 acetaminophen 650 mg rectal suppository Dose : 650 mg = 1 supp, Rectal, q4h, PRN for fever, 0 Refill(s) Start Date: 08/20/24 Status: Ordered Repeat number: 1 Start: 05-30-2024 acetaminophen Dose : 650 mg = 2 tab(s), Oral, q4h, PRN Pain, scale 1-3, 0 Refill(s) Start Date: 05/30/24 Status: Ordered Repeat number: 1 Start: 03-21-2022 take 2 tablets by mo uth every eight hours as needed acetaminophen (TYLENOL EXTRA STRENGTH) 500 mg tablet Take 2 tablets by mouth every 8 hours as needed for pain (For knee pain). 30 tablet 5 03/21/2022 Active Start: 05-10-2019 End: 12-26-2023 take 500-1000 mg by mouth every six hours as needed for pain Acetaminophen 500 MG tablet Discontinued 500 - 1000 mg PO EVERY 6 HOURS NEEDED as needed for Pain Score 4-10/10 May 10, 2019 10:11pm December 26, 2023 7:15pm Comment on above: Take 2 tablets by mo uth every 8 hours as needed for pain (For knee pain). apixaban 5 mg oral tablet (3 sources) Factor Xa Inhibitor Start: 08-09-19 End: 05-23-19 take 2 tablets by mouth twice daily, then take 1 tablet by mouth twice daily Apixaban (Eliquis Dvt-Pe Treat 30d Start) 5 mg (74 tabs) tablets,dose pack Discontinued 5 mg PO TWICE A DAY August 08, 2020 12:00am May 22, 2021 3:22pm 2 tabs twice daily x1 week then 1 tab twice daily Apri 0.15-30 MG-MCG Oral Tablet (6 sources) Start: 06-01-19 Apri 0.15-30 MG-MCG Oral Tablet 28 day tablet: take 1 tablet PO QD Quantity: 0 Refills: 0 Ordered: 01-Jun-2015 DO Start : 01-Jun-2015 Active ascorbic acid 60 mg / beta carotene 5000 unt / copper sulfate 40 mg / dl-alpha tocopheryl acetate 30 unt / sodium selenite 0.04 mg / zinc oxide 40 mg oral tablet (2 sources) Vitamin C Start: 06-01-19 take 1 tablet by mouth once daily CertaVite/Antioxidan ts Oral Tablet TAKE 1 TABLET DAILY. Refills: 0 Start : 01-Jun-2015 Active atropine sulfate 0.025 mg / diphenoxylate hydrochloride 2.5 mg oral tablet (20 sources) Anticholinergic, Cholinergic Muscarinic Antagonist, Antidiarrheal Start: 12-23-19 End: 02-17-20 Diphenoxylate-Atropi ne (Lomotil) 2.5-0.025 mg tablet Discontinued 1 {tbl} PO EVERY 6 HOURS as needed for diarrhea December 23, 2023 12:00am February 17, 2024 4:50pm [facility] hours as needed diphenoxylate-atropine (LOMOTIL) 2.5-0.0 25 mg per tablet Take 1 tablet by mouth four times a day as needed. Active benzonatate 100 mg oral capsule (14 sources) Non-narcotic Antitussive Start: 03-21-2022 End: 10-23-2022 take 1 capsule by mouth every twenty-four hours as needed benzonatate (TESSALON PERLES) 100 mg capsule Take 1 capsule by mouth at bedtime as needed for cough. 15 capsule 0 03/21/2022 10/23/2022 Discontinued Comment on above: Take 1 capsule by mo [facility] at bedtime as needed for cough. Certagen Mvi (3 sources) Start: 12-09-2012 End: 02-08-2013 Certagen Mvi Discontinued 1 {tbl} PO DAILY December 09, 2012 12:00am February 08, 2013 9:28am Start: 12-09-2012 End: 02-08-2013 take 1 tablet by mouth once daily Certagen Mvi Discontinued 1 TABLET PO DAILY December 09, 2012 12:00am February 08, 2013 9:28am CERTAVITE-ANTIOXIDANT (20 sources) Start: 11-06-2020 End: 10-23-2022 take 1 tablet by mouth once daily CERTAVITE-ANTIOXIDANT TAKE ONE TABLET BY MOUTH DAILY 31 tablet 10 11/06/2020 10/23/2022 Discontinued Start: 11-06-2020 take 1 tablet by erin th once daily CERTAVITE-ANTIOXIDANT TAKE ONE TABLET BY [...] sources) Progestin, Estrogen Start: 05-22-2021 End: 05-23-2021 take 0.15 tablet by mouth once daily Desogestrel-Ethinyl Estradiol (Apri) 0.15-0.03 mg tablet Discontinued 1 {tbl} PO daily May 22, 2021 3:47pm May 23, 2021 3:13pm Start: 05-22-2021 End: 05-23-2021 Desogestrel-Ethinyl Estradio l (Apri) 0.15-0.03 mg tablet Discontinued 1 TABLET PO daily May 22, 2021 3:47pm May 23, 2021 [...] tablet 08/29/2020 Active Start: 05-11-2020 End: 05-22-2021 take 0.15 tablet by mouth once daily Desogestrel-Ethinyl Estradiol (Apri) 0.15-0.03 mg tablet Discontinued 1 {tbl} PO daily May 11, 2020 4:00pm May 22, 2021 3:47pm Start: 05-11-2020 End: 05-22-2021 Desogestrel-Ethinyl Estradio l (Apri) 0.15-0.03 mg tablet Discontinued 1 TABLET PO daily May 11, 2020 4:00pm May 22, 2021 3:47pm Start: 04-29-2019 End: 05-11-2020 take 0.15 tablet by mouth once daily Desogestrel-Ethinyl Estradiol (Apri) 0.15-0.03 mg tablet Discontinued 1 {tbl} PO daily April 29, 2019 1:00am May 11, 2020 4:00pm Start: 04-29-2019 End: 05-11-2020 Desogestrel-Ethinyl Estradio l (Apri) 0.15-0.03 mg tablet Discontinued 1 TABLET PO daily April 29, 2019 1:00am May 11, 2020 4:00pm Start: 04-11-2019 End: 04-21-2019 take 0.15 tablet by mouth once daily Desogestrel-Ethinyl Estradiol (Cyred) 0.15-0.03 mg tablet Discontinued 1 {tbl} PO daily April 11, 2019 5:06pm April 21, 2019 5:16pm Start: 04-11-2019 End: 04-21-2019 Desogestrel-Ethinyl Estradio l (Cyred) 0.15-0.03 mg tablet Discontinued 1 TABLET PO daily April 11, 2019 5:06pm April 21, 2019 5:16pm Start: 06-03-2018 End: 04-11-2019 take 0.15 tablet by mouth once daily Desogestrel-Ethinyl Estradiol (Cyred) 0.15-0.03 mg tablet Discontinued 1 {tbl} PO daily 84 June 03, 2018 3:46pm April 11, 2019 5:06pm Start: 06-03-2018 End: 04-11-2019 Desogestrel-Ethinyl Estradio l (Cyred) 0.15-0.03 mg tablet Discontinued 1 TABLET PO daily 84 June 03, 2018 3:46pm April 11, 2019 5:06pm Start: 04-08-2017 End: 06-03-2018 take 0.15 tablet by mouth once daily Desogestrel-Ethinyl Estradiol (Cyred) 0.15-0.03 mg tablet Discontinued 1 {tbl} PO daily 84 April 08, 2017 10:56am June 03, 2018 3:47pm Start: 04-08-2017 End: 06-03-2018 Desogestrel-Ethinyl Estradio l (Cyred) 0.15-0.03 mg tablet Discontinued 1 TABLET PO daily 84 April 08, 2017 10:56am June 03, 2018 3:47pm Start: 04-08-2017 End: 04-08-2017 take 0.15 tablet by mouth once daily Desogestrel-Ethinyl Estradiol (Cyred) 0.15-0.03 mg tablet Discontinued 1 {tbl} PO daily April 08, 2017 1:00am April 08, 2017 10:57am Start: 04-08-2017 End: 04-08-2017 Desogestrel-Ethinyl Estradio l [...] Day Tablet) 1 EACH tablet Discontinued 1 NMA PO DAILY December 09, 2012 12:00am February 08, 2013 9:28am Start: 12-09-2012 End: 02-08-2013 take 1 tablet by mouth once daily Desog-E.Estradiol/E.Estradiol (Mircette 28 Day Tablet) 1 EACH tablet Discontinued 1 EACH PO DAILY December 09, 2012 12:00am February 08, 2013 9:28am Comment on above: Take 1 tablet by erin th once daily. dicyclomine hydrochloride 10 mg oral capsule (1 source) Anticholinergic Start: 2023 End: 2023 take 2 capsules by mouth three times daily before mealtime Dicyclomine 10 mg capsule Discontinued 20 mg PO THREE TIMES DAILY BEFORE MEALS December 23, 2023 12:00am February 17, 2024 4:50pm diphenhydrAMINE hydrochloride 25 mg oral tablet (20 sources) Histamine-1 Receptor Antagonist Start: 2019 End: 2024 take 1 tablet by mouth every six hours as needed diphenhydrAMINE (BENADRYL) 25 mg tablet Indications: Rash Take 1 tablet by mouth every 6 hours as needed. 48 tablet 11/18/2019 03/12/2024 Discontinued Comment on above: Take 1 tablet by erin th every 6 hours as needed. Docosahexaenoate (5 sources) Start: 2023 End: 2024 take 1000 mg by mouth once daily DOCOSAHEXAENOIC ACID ORAL Take 1,000 mg by mouth once daily. 08/22/2023 05/04/2024 Discontinued (Med List Cleanup) Start: 08-22-2023 take 1000 mg by mout h once daily DOCOSAHEXAENOIC ACID ORAL Take 1,000 mg by mouth once daily. 08/22/2023 Active Powderly-3 Fatty Acids-Fish Oil (3 sources) Start: 12-09-2012 End: 02-08-2013 Powderly-3 Fatty Acids-Fish Oil 1 EACH capsule Discontinued 1 NMA PO DAILY December 09, 2012 12:00am February 08, 2013 9:28am Start: 12-09-2012 End: 02-08-2013 Powderly-3 Fatty Acids-Fish Oil Discontinued 1 EACH PO DAILY December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 hours as needed for wheezing/shortness of breath. (Patient not taking: Reported on 10/05/2024) sertraline (ZOLOFT) 25 mg tablet Take 1 tablet by mouth once daily. (Patient not taking: Reported on 10/05/2024) torsemide (DEMADEX) 20 mg tablet Take an extra 20 a day mgs In addition to current dose of 40 mgs 2 times on days you have more than 5 pounds of water weight gain (Patient not taking: Reported on 09/13/2024) torsemide (DEMADEX) 20 mg tablet Take 2 tablets by mouth two times a day. (Patient not taking: Reported on 09/13/2024) mometasone-formoterol (DULERA) 100-5 mcg/actuation inhaler Inhale 2 Puffs as instructed two times a day. (Patient not taking: Reported on 09/13/2024) diphenoxylate-atropine (LOMOTIL) 2.5-0.025 mg per tablet Take 1 tablet by mouth four times a day as needed. (Patient not taking: Reported on 09/13/2024) ondansetron (ZO (more content not included)... Normal [facility] .GFRon 09-29-2024 Estimated Glomerular Filtration Rate 113 ml/min/1.73sqm Normal [facility] Comment on above: Result Comment: Stages of [...] calculate the eGFR results. Performed By: #### M DW, CBC, ANEU, GFR, PBNP, BMP, TROPHS, MG, ADIFF #### [address] [address] BMPon 09-29-2024 BUN/Creatinine Ratio 40 ratio High 7-27 [facility] Comment on above: Performed By: #### M DW, CBC, ANEU, GFR, PBNP, BMP, TROPHS, MG, ADIFF #### [address] [address] Calcium [Mass/Vol] 9.5 mg/dL Normal 8.4-10.2 [facility] Comment on above: Performed By: #### M DW, CBC, ANEU, GFR, PBNP, BMP, TROPHS, MG, ADIFF #### [address] [address] Chloride [Moles/Vol] 97 mmol/L Low 98-107 [facility] Comment on above: Performed By: #### M DW, CBC, ANEU, GFR, PBNP, BMP, TROPHS, MG, ADIFF #### [address] [address] CO2 [Moles/Vol] 35 mmol/L High 22-29 [facility] Comment on above: Performed By: #### M DW, CBC, ANEU, GFR, PBNP, BMP, TROPHS, MG, ADIFF #### [address] [address] Creatinine [Mass/Vol] 0.65 mg/dL Normal 0.51-0.95 [facility] Comment on above: Performed By: #### M DW, CBC, ANEU, GFR, PBNP, BMP, TROPHS, MG, ADIFF #### [address] [address] Electrolyte Balance 7.0 mEq/L Normal 4.0-15.0 [facility] Comment on above: Performed By: #### M DW, CBC, ANEU, GFR, PBNP, BMP, TROPHS, MG, ADIFF #### [address] [address] Glucose [Mass/Vol] 70 mg/dL Normal 70-105 [facility] Comment on above: Performed By: #### M DW, CBC, ANEU, GFR, PBNP, BMP, TROPHS, MG, ADIFF #### [address] [address] Potassium [Moles/Vol] 3.8 mmol/L Normal 3.5-5.1 [facility] Comment on above: Performed By: #### M DW, CBC, ANEU, GFR, PBNP, BMP, TROPHS, MG, ADIFF #### [address] [address] Sodium [Moles/Vol] 139 mmol/L Normal 136-145 [facility] Comment on above: Performed By: #### M DW, CBC, ANEU, GFR, PBNP, BMP, TROPHS, MG, ADIFF #### [address] [address] Urea nitrogen [Mass/Vol] 26 mg/dL High 7-18 [facility] Comment on above: Performed By: #### M DW, CBC, ANEU, GFR, PBNP, BMP, TROPHS, MG, ADIFF #### [address] [address] PBNPon 09-29-2024 Natriuretic peptide B (Bld) [Mass/Vol] 79 pg/mL Normal 0-125 [facility] Comment on above: Result Comment: NT-p roBNP results of less than 300 pg/mL effectively rules out acute congestive heart failure with 99% negative predictive value. Performed By: #### M DW, CBC, ANEU, GFR, PBNP, BMP, TROPHS, MG, ADIFF #### [address] [address] .Auto Diffon 09-28-2024 Basophil, Absolute 0.1 10 3/mcL Normal 0.0-0.3 [facility] Comment on above: Performed By: #### M DW, CBC, ANEU, GFR, PBNP, BMP, TROPHS, MG, ADIFF #### [address] [address] Basophils/100 WBC (Bld) 0.5 % Normal 0.0-2.5 [facility] Comment on above: Performed By: #### M DW, CBC, ANEU, GFR, PBNP, BMP, TROPHS, MG, ADIFF #### [address] [address] Eosinophil, Absolute 0.3 10 3/mcL Normal 0.0-0.7 [facility] Comment on above: Performed By: #### M DW, CBC, ANEU, GFR, PBNP, BMP, TROPHS, MG, ADIFF #### [address] [address] Eosinophils/100 WBC (Bld) 1.8 % Normal 0.0-6.0 [facility] Comment on above: Performed By: #### M DW, CBC, ANEU, GFR, PBNP, BMP, TROPHS, MG, ADIFF #### [address] [address] Lymphocyte, Absolute 2.1 10 3/mcL Normal 0.9-4.3 [facility] Comment on above: Performed By: #### M DW, CBC, ANEU, GFR, PBNP, BMP, TROPHS, MG, ADIFF #### [address] [address] Lymphocytes/100 WBC (Bld) 14.0 % Low 20.0-40.0 [facility] Comment on above: Performed By: #### M DW, CBC, ANEU, GFR, PBNP, BMP, TROPHS, MG, ADIFF #### [address] [address] Monocyte, Absolute 1.3 10 3/mcL Normal 0.1-1.4 [facility] Comment on above: Performed By: #### M DW, CBC, ANEU, GFR, PBNP, BMP, TROPHS, MG, ADIFF #### [address] [address] Monocytes/100 WBC (Bld) 8.9 % Normal 2.0-13.0 [facility] Comment on above: Performed By: #### M DW, CBC, ANEU, GFR, PBNP, BMP, TROPHS, MG, ADIFF #### [address] [address] Neutrophils/100 WBC (Bld) 74.8 % Normal 50.0-75.0 [facility] Comment on above: Performed By: #### M DW, CBC, ANEU, GFR, PBNP, BMP, TROPHS, MG, ADIFF #### [address] [address] .NEUABSon 09-28-2024 Neutrophil, Absolute 11.0 10 3/mcL High 2.3-8.1 [facility] Comment on above: Performed By: #### M DW, CBC, ANEU, GFR, PBNP, BMP, TROPHS, MG, ADIFF #### [address] [address] CBCon 09-28-2024 Erythrocyte distribution width (RBC) [Ratio] 14.5 % Normal 11.5-15.5 [facility] Comment on above: Performed By: #### M DW, CBC, ANEU, GFR, PBNP, BMP, TROPHS, MG, ADIFF #### [place] [address] Hematocrit (Bld) [Volume fraction] 42.9 % Normal 34.0-46.0 [facility] Comment on above: Performed By: #### M DW, CBC, ANEU, GFR, PBNP, BMP, TROPHS, MG, ADIFF #### [address] [address] Hgb 14.1 G/dL Normal 12.0-16.0 [facility] Comment on above: Performed By: #### M DW, CBC, ANEU, GFR, PBNP, BMP, TROPHS, MG, ADIFF #### [address] [address] MCH (RBC) [Entitic mass] 30.6 pg Normal 27.0-33.0 [facility] Comment on above: Performed By: #### M DW, CBC, ANEU, GFR, PBNP, BMP, TROPHS, MG, ADIFF #### [address] [address] MCHC 32.8 G/dL Normal 32.0-36.0 [facility] Comment on above: Performed By: #### M DW, CBC, ANEU, GFR, PBNP, BMP, TROPHS, MG, ADIFF #### [address] [address] MCV (RBC) [Entitic vol] 93.2 fL Normal 80.0-99.0 [facility] Comment on above: Performed By: #### M DW, CBC, ANEU, GFR, PBNP, BMP, TROPHS, MG, ADIFF #### [address] [address] Platelet 248 10 3/mcL Normal 150-450 [facility] Comment on above: Performed By: #### M DW, CBC, ANEU, GFR, PBNP, BMP, TROPHS, MG, ADIFF #### [address] [address] Platelet mean volume (Bld) [Entitic vol] 9.4 fL Normal 6.6-10.5 [facility] Comment on above: Performed By: #### M DW, CBC, ANEU, GFR, PBNP, BMP, TROPHS, MG, ADIFF #### [address] [address] RBC 4.60 10 6/mcL Normal 4.10-5.30 [facility] Comment on above: Performed By: #### M DW, CBC, ANEU, GFR, PBNP, BMP, TROPHS, MG, ADIFF #### [address] [address] WBC 14.7 10 3/mcL High 4.5-10.8 [facility] Comment on above: Performed By: #### M DW, CBC, ANEU, GFR, PBNP, BMP, TROPHS, MG, ADIFF #### [id number] [place], [place] [address] LABORATORYOrdered By: SYSTEM SYSTEM on 09-28-2024 Basophils (Bld) [#/Vol] 0.1 103/mcL Normal 0.0 - 0.3 10^3/mcL AO Workflow SS Basophils/100 WBC (Bld) 0.5 % Normal 0.0 - 2.5 % AO Workflow SS Eosinophil, Absolute 0.3 103/mcL Normal 0.0 - 0 .7 10^3/mcL AO Workflow SS Eosinophils/100 WBC (Bld) 1.8 % Normal 0.0 - 6.0 % AO Workflow SS Erythrocyte distribution width (RBC) [Ratio] 14.5 % Normal 11.5 - 15.5 % AO Workflow SS Hematocrit (Bld) [Volume fraction] 42.9 % Normal 34.0 - 46.0 % AO Workflow SS Hemoglobin (Bld) [Mass/Vol] 14.1 G/dL Normal 12.0 - 16.0 G/dL AO Workflow SS Lymphocytes (Bld) [#/Vol] 2.1 103/mcL Normal 0.9 - 4.3 10^3/mcL AO Workflow SS Lymphocytes/100 WBC (Bld) 14.0 % Low 20.0 - 40.0 % AO Workflow SS MCH (RBC) [Entitic mass] 30.6 pg Normal 27.0 - 33.0 pg AO Workflow SS MCHC 32.8 G/dL Normal 32.0 - 36.0 G/dL AO Workflow SS MCV (RBC) [Entitic vol] 93.2 fL Normal 80.0 - 99.0 fL AO Workflow SS Monocytes (Bld) [#/Vol] 1.3 103/mcL Normal 0.1 - 1.4 10^3/mcL AO Workflow SS Monocytes/100 WBC (Bld) 8.9 % Normal 2.0 - 13.0 % AO Workflow SS Neutrophils (Bld) [#/Vol] 11.0 103/mcL High 2.3 - 8.1 10^3/mcL AO Workflow SS Neutrophils/100 WBC (Bld) 74.8 % Normal 50.0 - 75.0 % AO Workflow SS Platelet mean volume (Bld) [Entitic vol] 9.4 fL Normal 6.6 - 10.5 fL AO Workflow SS Platelets (Bld) [#/Vol] 248 103/mcL Normal 150 - 450 10^3/mcL AO Workflow SS RBC (Bld) [#/Vol] 4.60 106/mcL Normal 4.10 - 5.3 0 10^6/mcL AO Workflow SS WBC (Bld) [#/Vol] 14.7 103/mcL High 4.5 - 10.8 10^3/mcL AO Workflow SS CNPNon 09-27-2024 CNPN Telephone (FAMWS) CHANTELLSIA Jacques ([id number]) 1980 F Date Time Provider Department 09/27/24 [facility] During your visit today, we recorded the following information about you: Mandy Jordan LPN 09/27/2024 1:55 PM Signed Zainab with [facility] calls to request Vit D3 5,000 units every Friday for pt. Zainab reports previous dr prescribed this for pt. This is not on pt's med list. Please review. JORDAN Kaye Chitra, MD 09/27/2024 5:51 PM Signed Well, I would actually like her to take 2000 international unit(s) daily with food daily. Its a much better way to get the supplement Regards, Teresa Ramirez MD, RN 09/27/2024 7:05 PM Signed Tried calling [facility], but they are closed. Will need to call tomorrow during day time hours. RODRÍGUEZ Hua Krystle, RN 09/28/2024 9:31 AM Signed Zainab with [facility] calls to request prescription as below. Reviewed notes. Zainab asking for prescription that provider recommends be sent to them so they can fill medication. Pended. Eulalia Laureano RN Allergies As of Date: 09/27/2024 Noted Allergy Reaction BEE STING 02/28/2023 10 - Anaphylaxis BUMEX (BUMETANIDE) 03/12/2024 6 - Diarrhea 14 - Other: See Comments Comments: chula PARMAR (PHENYTOIN SODIUM EXTEND*01/28/2006 Date Reviewed: 09/13/2024 Reviewed by: Rafia Dennis MA - Fully Assessed Reason for Visit: Medication Request [138] Order(s):Cholecalcifer ol, Vitamin D3, (VITAMIN D-3) 50 mcg (2,000 unit) capTake 1 capsule by mouth once daily.Disp: 90 capsuleRfl: 3 Prescriptions as of 09/29/2024 - Cholecalciferol, Vitamin D3, (VITAMIN D-3) 50 mcg (2,000 unit) cap Take 1 capsule by mouth once daily. - bumetanide (BUMEX) 2 mg tablet Take 1 tablet by mouth two times a day. For edema. - aspirin 81 mg chewable tablet Take 1 tablet by mouth once daily. - spironolactone (ALDACTONE) 25 mg tablet Take 1 tablet by mouth every morning. - multivitamin-ferrous fumarate-folic acid (CERTAVITE-ANTIOXIDANT ) Take 1 tablet by mouth once daily. - levothyroxine (SYNTHROID) 100 mcg tablet take one tablet by mouth daily one hour before breakfast - empagliflozin (JARDIANCE) 10 mg tablet Take 1 tablet by mouth once daily. - frxywed-ttjgpaoxc-vfyo min D3 (OYSTER SHELL CALCIUM-VITAMIN D) 500 mg-5 mcg (200 unit) per tablet Take 1 tablet by mouth two times a day with meals. - OXYGEN, HOME THERAPY, 3 L/min by Nasal Cannula route continuous. 4L at bedtime. - budesonide (PULMICORT) 0.5 mg/2 mL nebulizer solution Inhale 0.5 mg as instructed every morning. - ZEPBOUND 5 mg/0.5 mL pen injector Inject 5 mg subcutaneously one time a week. - albuterol HFA (VENTOLIN HFA) 90 mcg/actuation inhaler Inhale 2 puffs as instructed every 4 hours as needed for wheezing/shortness of breath. - fluticasone (FLONASE) 50 mcg/actuation nasal spray INSTILL 2 SPRAYS IN EACH NOSTRIL DAILY - fluticasone-vilanterol (BREO ELLIPTA) 100-25 mcg/dose inhaler Inhale 1 inhalation as instructed once daily. - sertraline (ZOLOFT) 25 mg tablet Take [...] as instructed two times a day. - diphenoxylate-atropine (LOMOTIL) 2.5-0.025 mg per tablet Take 1 tablet by mouth four times a day as needed. - ondansetron (ZOFRAN) 4 mg tablet Take by mouth every 8 hours as needed for nausea/vomiting. - carvedilol (COREG) 3.125 mg tablet Take 1 tablet by mouth two times a day. - ammonium lactate (LAC-HYDRIN) 12 % cream APPLY TOPICALLY TO AFFECTED AREA(S) ON LEGS AT BEDTIME - Qetww-8-UXH-EPA-Fish Oil 1,000 mg (120 mg-180 mg) cap Take 1 capsule by mouth once daily. - nystatin (NYAMYC) powder APPLY TOPICALLY TWICE DAILY TO AFFECTED AREA(S) ON ABDOMINAL FOLDS - clotrimazole (LOTRIMIN) 1 % cream APPLY TOPICALLY TO AFFECTED AREA(S) ON BILATERAL GROIN TWICE DAILY - acetaminophen (TYLENOL EXTRA STRENGTH) 500 mg tablet Take 2 tablets by mouth every 8 hours as needed for pain (For knee pain). - Gauze Bandage 2 X 2 bndg Apply 1 application to affected area twice daily. - cetirizine (ZYRTEC) 10 mg tablet Take 1 tablet by mouth once daily. (more content not included)... Normal [facility] CNOVon 09-13-2024 CNOV Office Visit (INTMWS ) SIA ABDUL ([id number]) 1980 F Date Time Provider Department 09/13/24 3:40 PM MARILEE THAKUR INTMWS During your visit today, we recorded the following information about you: Pulse Respiration Blood pressure Weight 60/minute 18/minute 115/76 127 kg Marilee Thakur MD 09/13/2024 6:00 PM Signed Reason for Visit Follow up after hospital discharge HPI Jayshree Abdul is a 44-year-old female with a history of acute hypoxic hypercapnic respiratory failure, acute diastolic heart failure, severe pulmonary hypertension, prader conchita syndrome, DACIA, and class 3 obesity, presenting for follow-up after a recent hospitalization and subsequent stays at a long term facility and a skilled nursing. Jayshree was admitted to [facility] in May for acute hypoxic hypercapnic respiratory failure, acute diastolic heart failure with a right-sided component, severe pulmonary hypertension, DACIA with a component of obesity hypoventilation syndrome, and class 3 obesity. She presented to the [facility] ED on May 12 with increased dyspnea and became unresponsive, experiencing a PEA arrest requiring 2 rounds of CPR before ROSC was achieved. She was intubated and treated for mycoplasma pneumonia with azithromycin and ceftriaxone. She was extubated 2 days later but experienced another episode of dyspnea and unresponsiveness, requiring BiPAP support and transfer to the CCU. She was later treated with doxycycline for mycoplasma pneumonia. Following her discharge from [facility] at the end of May, Jayshree spent approximately 1 month at [facility] and then moved to [facility] for rehabilitation. She experienced a relapse during her stay at [facility] and was readmitted briefly. Jayshree has been living in a waiver home for the past 7 days. he needs a nebulizer machine and is requesting albuterol inhaler for prn use when she is walking. she was using the walker till this week and is finally able to stand and walk by herself. Jayshree is currently on multiple medications, including aspirin, budesonide inhalation, bumetanide 2 mg BID, Jardiance 10 mg, levothyroxine 100 mcg, spironolactone 25 mg, Milk of Magnesia as needed, a multivitamin, norethindrone, and tirzepatide 5 mg. She is also on a fluid restriction of 1,440 mL/day and uses compression boots twice daily. She reports a weight of 280 lbs, down from 289 lbs last week, with a previous high of 300 lbs in February due to fluid retention. She uses an AVAP at night and reports feeling more rested in the morning. She also uses a walker for mobility but has started walking short distances without it. She requests a rescue albuterol inhaler for dyspnea with exertion. Social History Tobacco Use Smoking status: Never Smokeless tobacco: Never Substance Use Topics Alcohol use: No Drug use: No Past medical history, appointments, medications, allergies reviewed. Pertinent Lab/Diagnostic Studies are reviewed and discussed today Current Outpatient Medications: OXYGEN, HOME THERAPY, budesonide (PULMICORT) 0.5 mg/2 mL nebulizer solution bumetanide (BUMEX) 2 mg tablet empagliflozin (JARDIANCE) 10 mg tablet ipratropium-albuterol (DUONEB) 0.5 mg-3 mg(2.5 mg base)/3 mL nebu spironolactone (ALDACTONE) 25 mg tablet ZEPBOUND 5 mg/0.5 mL pen injector fluticasone (FLONASE) 50 mcg/actuation nasal spray fluticasone-vilanterol (BREO ELLIPTA) 100-25 mcg/dose inhaler kqxxuze-yykerorkb-xecl min D3 (OYSTER SHELL CALCIUM-VITAMIN D) 500 mg-5 mcg (200 unit) per tablet IRAIDA 0.35 mg tablet EPINEPHrine (EPIPEN) 0.3 mg/0.3 mL auto-injector MEDICAL SUPPLY aspirin 81 mg chewable tablet ammonium lactate (LAC-HYDRIN) 12 % cream multivitamin-ferrous fumarate-folic acid (CERTAVITE-ANTIOXIDANT ) levothyroxine (SYNTHROID) 100 mcg tablet nystatin (NYAMYC) powder acetaminophen (TYLENOL EXTRA STRENGTH) 500 mg tablet Gauze Bandage 2 X 2 bndg cetirizine (ZYRTEC) 10 mg tablet COMPOUNDED PRESCRIPTION COMPOUNDED PRESCRIPTION COMPOUNDED PRESCRIPTION albuterol HFA (VENTOLIN HFA) 90 mcg/actuation inhaler sertraline (ZOLOFT) 25 mg tablet torsemide (DEMADEX) 20 mg tablet torsemide (DEMADEX) 20 mg tablet mometasone-formoterol (DULERA) 100-5 mcg/actuation inhaler diphenoxylate-atropine (LOMOTIL) 2.5-0.025 mg per tablet ondansetron (ZOFRAN) 4 mg tablet carvedilol (COREG) 3.125 mg tablet Bojkq-2-BVK-EPA-Fish Oil 1,000 mg (120 mg-180 mg) cap clotrimazole (LOTRIMIN) 1 % cream Health Maintenance Depression Screening Anxiety Screening Hepatitis B Vaccine(1 of 3 - 19+ 3-dose series) Pneumococcal Vaccine(2 of 2 - PCV) Medicare Annual Wellness Visit Covid-19 Vaccine() Mammogram Screening@ Review Of Systems Respiratory: (+) dyspnea on exertion Gastrointestinal: (+) abdominal pain, (-) constipation Physical Exam B (more content not included)... Normal [facility] SIA ABDUL ([id number]) 1980 F Date Time Provider Department 09/13/24 MARILEE THAKUR INTMWS During your visit today, we recorded the following information about you: Lillie Marshall RN 09/13/2024 11:42 AM Signed Bolivar RAMIREZ calling from [facility] to report plan of care for patient and physical therapy will visit patient 2 times a week for 3 weeks and 1 time a week for 5 weeks. No call back needed unless questions. RODRÍGUEZ Carnes Chitra, MD 09/13/2024 6:06 PM Signed Noted and agree Regards, Marilee Thakur MD Allergies As of Date: 09/13/2024 Noted Allergy Reaction BEE STING 02/28/2023 10 - Anaphylaxis BUMEX (BUMETANIDE) 03/12/2024 6 - Diarrhea 14 - Other: See Comments Comments: chula PARMAR (PHENYTOIN SODIUM EXTEND*01/28/2006 Date Reviewed: 09/13/2024 Reviewed by: Rafia Dennis MA - Fully Assessed Reason for Visit: physcial therapy plan of care [Other] Prescriptions as of 09/13/2024 - OXYGEN, HOME THERAPY, 3 L/min by Nasal Cannula route continuous. 4L at bedtime. - budesonide (PULMICORT) 0.5 mg/2 mL nebulizer solution Inhale 0.5 mg as instructed every morning. - bumetanide (BUMEX) 2 mg tablet Take 2 mg by mouth two times a day. For edema. - empagliflozin (JARDIANCE) 10 mg tablet Take 10 mg by mouth once daily. - ipratropium-albuterol (DUONEB) 0.5 mg-3 mg(2.5 mg base)/3 mL nebu Inhale 3 mL as instructed four times daily. For COPD. - spironolactone (ALDACTONE) 25 mg tablet Take 25 mg by mouth every morning. - ZEPBOUND 5 mg/0.5 mL pen injector Inject 5 mg subcutaneously one time a week. - albuterol HFA (VENTOLIN HFA) 90 mcg/actuation inhaler Inhale 2 puffs as instructed every 4 hours as needed for wheezing/shortness of breath. - fluticasone (FLONASE) 50 mcg/actuation nasal spray INSTILL 2 SPRAYS IN EACH NOSTRIL DAILY - fluticasone-vilanterol (BREO ELLIPTA) 100-25 mcg/dose inhaler Inhale 1 inhalation as instructed once daily. - xymvwlq-hjeijliaj-odho min D3 (OYSTER SHELL CALCIUM-VITAMIN D) 500 [...] as instructed two times a day. - diphenoxylate-atropine (LOMOTIL) 2.5-0.025 mg per tablet [...] 1 tablet by mouth once daily. - Sjvvx-9-BDY-EPA-Fish Oil 1,000 mg (120 mg-180 mg) cap Take 1 capsule by mouth once daily. - levothyroxine (SYNTHROID) 100 mcg tablet take one tablet by mouth daily one hour before breakfast - nystatin (NYAMYC) powder APPLY TOPICALLY TWICE DAILY TO AFFECTED AREA(S) ON ABDOMINAL FOLDS - clotrimazole (LOTRIMIN) 1 % cream APPLY TOPICALLY TO AFFECTED AREA(S) ON BILATERAL GROIN TWICE DAILY - acetaminophen (TYLENOL EXTRA STRENGTH) 500 [...] 4pm Dx:Q87.1 Problem List As Of Date 09/13/2024 Noted Resolved Other malaise and fatigue [R53.81, R53.83] 08/06/2005 12/13/2013 Other dyspnea and respiratory abnormality [R06.*08/06/2005 12/13/2013 Other alteration of consciousness [R40.4] 08/06/2005 12/13/2013 WEIGHT GAIN, ABNORMAL [R63.5] 08/06/2005 (more content not included)... [facility] (INTMWS) SIA ABDUL ([id number]) 1980 F Date Time Provider Department 09/03/24 MARILEE THAKUR INTKAYE During your visit today, we recorded the following information about you: Candelaria Ball LPN 09/03/2024 11:01 AM Signed Lyle from [facility] calling received orders for long term, PT, OT patient is discharging from [facility] on 09/04. Asking if PCP would follow patient and sign orders? Please advise Lillie Marshall RN 09/06/2024 10:49 AM Signed Lyle calls and states that patient is being discharged from [facility] today. Asking if provider will follow orders for long term? Patient has [facility] follow up scheduled with Dr. Thakur on 09/13/2024. Please review and advise, RODRÍGUEZ Carnes Chitra, MD 09/06/2024 12:55 PM Signed Yes, I will. Regards, Teresa Ramirez MD, RODRÍGUEZ 09/06/2024 1:06 PM Signed Called and left a voicemail for the Lyle from [facility] to call back and ask for a nurse to receive the providers message. RODRÍGUEZ Hua Helen E, LPN 09/07/2024 4:46 PM Signed Mandy[facility] notified. Mackenzie Elmore LPN Allergies As of Date: 09/03/2024 Noted Allergy Reaction BEE STING 02/28/2023 10 - Anaphylaxis BUMEX (BUMETANIDE) 03/12/2024 6 - Diarrhea 14 - Other: See Comments Comments: chula DILANTIMelia (PHENYTOIN SODIUM EXTEND*01/28/2006 Date Reviewed: 05/10/2024 Reviewed by: María Avila MA - Fully Assessed Reason for Visit: home health calling [Other] Prescriptions as of 09/07/2024 - mffdird-ynnctcsyp-okta min D3 (OYSTER SHELL CALCIUM-VITAMIN D) 500 [...] 1 tablet by mouth once daily. - Lhgyn-7-TYS-EPA-Fish Oil 1,000 mg (120 mg-180 mg) cap [...] 4pm Dx:Q87.1 Problem List As Of Date 09/03/2024 Noted Resolved Other malaise and fatigue [R53.81, R53.83] 08/06/2005 12/13/2013 Other dyspnea and respiratory abnormality [R06.*08/06/2005 12/13/2013 Other alteration of consciousness [R40.4] 08/06/2005 12/13/2013 WEIGHT GAIN, ABNORMAL [R63.5] 08/06/2005 12/13/2013 Prader-Willi syndrome [Q87.11] 08/27/2005 VENOUS INSUFFICIENCY [I87. (more content not included)... Normal [facility] .Auto Diffon 08-27-2024 Basophil, Absolute 0.1 10 3/mcL Normal 0.0-0.3 [facility] Comment on above: Performed By: #### C BC, ADIFF, ANEU, MG, GFR, CMP ####[address] [address] Basophils/100 WBC (Bld) 0.5 % Normal 0.0-2.5 [facility] Comment on above: Performed By: #### C BC, ADIFF, ANEU, MG, GFR, CMP ####[address] [address] Eosinophil, Absolute 0.5 10 3/mcL Normal 0.0-0.7 [facility] Comment on above: Performed By: #### C BC, ADIFF, ANEU, MG, GFR, CMP ####[address] [address] Eosinophils/100 WBC (Bld) 4.0 % Normal 0.0-6.0 [facility] Comment on above: Performed By: #### C BC, ADIFF, ANEU, MG, GFR, CMP ####[address] [address] Lymphocyte, Absolute 1.8 10 3/mcL Normal 0.9-4.3 [facility] Comment on above: Performed By: #### C BC, ADIFF, ANEU, MG, GFR, CMP ####[address] [address] Lymphocytes/100 WBC (Bld) 15.3 % Low 20.0-40.0 [facility] Comment on above: Performed By: #### C BC, ADIFF, ANEU, MG, GFR, CMP ####[place] [id number] [place] [address] Monocyte, Absolute 1.4 10 3/mcL Normal 0.1-1.4 [facility] Comment on above: Performed By: #### C BC, ADIFF, ANEU, MG, GFR, CMP ####[address] [address] Monocytes/100 WBC (Bld) 11.6 % Normal 2.0-13.0 [facility] Comment on above: Performed By: #### C BC, ADIFF, ANEU, MG, GFR, CMP ####[address] [address] Neutrophils/100 WBC (Bld) 68.6 % Normal 50.0-75.0 [facility] Comment on above: Performed By: #### C BC, ADIFF, ANEU, MG, GFR, CMP ####[address] [address] .GFRon 08-27-2024 Estimated Glomerular Filtration Rate 109 ml/min/1.73sqm Normal [facility] Comment on above: Result Comment: [...] theeGFR results. Performed By: #### C BC, ADIFF, ANEU, MG, GFR, CMP ####[address] [address] .NEUABSon 08-27-2024 Neutrophil, Absolute 8.2 10 3/mcL High 2.3-8.1 [facility] Comment on above: Performed By: #### C BC, ADIFF, ANEU, MG, GFR, CMP ####[address] [address] BGon 08-27-2024 Base excess Calc (Bld) [Moles/Vol] 11.7 mmol/L Normal [facility] Comment on above: Performed By: #### B G ####[place] [address] CO2 [Moles/Vol] 40.1 mmol/L Critically abnormal 22.0-30.0 [facility] Comment on above: Performed By: #### B G ####[place] [address] HCO3 (Bld) [Moles/Vol] 38.3 mmol/L High 21.0-29.0 [facility] Comment on above: Performed By: #### B G ####[place] [address] Oxygen (Bld) [Partial pressure] 92.3 mm[Hg] Normal 74.0-108.0 [facility] Comment on above: Performed By: #### B G ####[place] [address] Oxygen saturation in Blood 97.4 % High 92.0-96.0 [facility] Comment on above: Performed By: #### B G ####[place] [address] pCO2 58.9 mmHg High 32.0-46.0 [facility] Comment on above: Performed By: #### B G ####[place] [address] pH (Bld) 7.431 [pH] Normal 7.380-7.460 [facility] Comment on above: Performed By: #### B G ####[place] [id number] CBCon 08-27-2024 Erythrocyte distribution width (RBC) [Ratio] 14.7 % Normal 11.5-15.5 [facility] Comment on above: Performed By: #### C BC, ADIFF, ANEU, MG, GFR, CMP ####[place] [address] Hematocrit (Bld) [Volume fraction] 32.7 % Low 34.0-46.0 [facility] Comment on above: Performed By: #### C BC, ADIFF, ANEU, MG, GFR, CMP ####[place] [address] Hgb 10.7 G/dL Low 12.0-16.0 [facility] Comment on above: Performed By: #### C BC, ADIFF, ANEU, MG, GFR, CMP ####[place] [address] MCH (RBC) [Entitic mass] 31.2 pg Normal 27.0-33.0 [facility] Comment on above: Performed By: #### C BC, ADIFF, ANEU, MG, GFR, CMP ####[place] [address] MCHC 32.7 G/dL Normal 32.0-36.0 [facility] Comment on above: Performed By: #### C BC, ADIFF, ANEU, MG, GFR, CMP ####[place] [address] MCV (RBC) [Entitic vol] 95.2 fL Normal 80.0-99.0 [facility] Comment on above: Performed By: #### C BC, ADIFF, ANEU, MG, GFR, CMP ####[place] [address] Platelet 172 10 3/mcL Normal 150-450 [facility] Comment on above: Performed By: #### C BC, ADIFF, ANEU, MG, GFR, CMP ####[place] [address] Platelet mean volume (Bld) [Entitic vol] 9.8 fL Normal 6.6-10.5 [facility] Comment on above: Performed By: #### C BC, ADIFF, ANEU, MG, GFR, CMP ####[place] [address] RBC 3.43 10 6/mcL Low 4.10-5.30 [facility] Comment on above: Performed By: #### C BC, ADIFF, ANEU, MG, GFR, CMP ####[place] [address] WBC 11.9 10 3/mcL High 4.5-10.8 [facility] Comment on above: Performed By: #### C BC, ADIFF, ANEU, MG, GFR, CMP ####[place] [address] CMPon 08-27-2024 Albumin Level 3.4 G/dL Normal 3.2-4.8 [facility] Comment on above: Performed By: #### C BC, ADIFF, ANEU, MG, GFR, CMP ####[place] [address] Albumin/Globulin [Mass ratio] 1.0 {ratio} Normal 0.9-1.6 [facility] Comment on above: Performed By: #### C BC, ADIFF, ANEU, MG, GFR, CMP ####[place] [address] ALP [Catalytic activity/Vol] 125 U/L Normal 38-126 [facility] Comment on above: Performed By: #### C BC, ADIFF, ANEU, MG, GFR, CMP ####[place] [address] ALT [Catalytic activity/Vol] 17 U/L Normal 10-49 [facility] Comment on above: Performed By: #### C BC, ADIFF, ANEU, MG, GFR, CMP ####[place] [address] AST [Catalytic activity/Vol] 18 U/L Normal 8-34 [facility] Comment on above: Performed By: #### C BC, ADIFF, ANEU, MG, GFR, CMP ####[place] [address] Bili Total 0.30 mg/dL Normal 0.20-1.20 [facility] Comment on above: Result Comment: Use of this assay is not recommended for patients undergoing treatment with eltrombopag due to the potential for falsely elevated results. Performed By: #### C BC, ADIFF, ANEU, MG, GFR, CMP ####[place] [address] BUN/Creatinine Ratio 42.3 ratio High 10.0-22.0 [facility] Comment on above: Performed By: #### C BC, ADIFF, ANEU, MG, GFR, CMP ####[address] [address] Calcium [Mass/Vol] 9.3 mg/dL Normal 8.7-10.4 [facility] Comment on above: Performed By: #### C BC, ADIFF, ANEU, MG, GFR, CMP ####[place] [address] Chloride [Moles/Vol] 98 mmol/L Normal 98-110 [facility] Comment on above: Performed By: #### C BC, ADIFF, ANEU, MG, GFR, CMP ####[place] [address] CO2 [Moles/Vol] 35 mmol/L High 22-32 [facility] Comment on above: Performed By: #### C BC, ADIFF, ANEU, MG, GFR, CMP ####[place] [address] Creatinine [Mass/Vol] 0.71 mg/dL Normal 0.50-1.20 [facility] Comment on above: Result Comment: Test ing performed on Backchat analyzer using enzymatic creatinine methodology. Performed By: #### C BC, ADIFF, ANEU, MG, GFR, CMP ####[place] [address] Electrolyte Balance 8.0 mEq/L Normal 4.0-15.0 [facility] Comment on above: Performed By: #### C BC, ADIFF, ANEU, MG, GFR, CMP ####[place] [address] Globulin 3.5 G/dL Normal 2.5-4.2 [facility] Comment on above: Performed By: #### C BC, ADIFF, ANEU, MG, GFR, CMP ####[place] [address] Glucose [Mass/Vol] 108 mg/dL Normal 70-110 [facility] Comment on above: Performed By: #### C BC, ADIFF, ANEU, MG, GFR, CMP ####[address] [address] Potassium [Moles/Vol] 4.1 mmol/L Normal 3.5-5.0 [facility] Comment on above: Performed By: #### C BC, ADIFF, ANEU, MG, GFR, CMP ####[place] [address] Sodium [Moles/Vol] 141 mmol/L Normal 136-145 [facility] Comment on above: Performed By: #### C BC, ADIFF, ANEU, MG, GFR, CMP ####[place] [address] Total Protein 6.9 G/dL Normal 5.7-8.2 [facility] Comment on above: Performed By: #### C BC, ADIFF, ANEU, MG, GFR, CMP ####[place] [address] Urea nitrogen [Mass/Vol] 30.0 mg/dL High 8.0-22.0 [facility] Comment on above: Performed By: #### C BC, ADIFF, ANEU, MG, GFR, CMP ####[place] [address] LABORATORYOrdered By: Akilah ratliff on 08-27-2024 CO2 [Moles/Vol] 40.1 mmol/L Invalid Interpretation Code 22.0 - 30.0 mmol/L [facility] SS HCO3 (Bld) [Moles/Vol] 38.3 mmol/L High 21.0 - 29.0 mmol/L [facility] Oxygen (Bld) [Partial pressure] 92.3 mm[Hg] Normal 74.0 - 108.0 mm Hg [facility] SS pCO2 58.9 mm[Hg] High 32.0 - 46.0 mm Hg [facility] SS pH (Bld) 7.431 [pH] Normal 7.380 - 7.460 [facility] SS Sodium [Moles/Vol] 11.7 mmol/L Invalid Interpretation Code Main [facility] SS LABORATORYOrdered By: SYSTEM SYSTEM on 08-27-2024 Albumin BCP dye [Mass/Vol] 3.4 G/dL Normal 3.2 - 4.8 G/dL ADM SS Albumin/Globulin [Mass ratio] 1.0 {ratio} Normal 0.9 - 1.6 ratio ADM SS ALP [Catalytic activity/Vol] 125 U/L Normal 38 - 126 U/L ADM SS ALT No additional P-5'-P [Catalytic activity/Vol] 17 U/L Normal 10 - 49 U/L ADM SS AST [Catalytic activity/Vol] 18 U/L Normal 8 - 34 U/L ADM SS Basophils (Bld) [#/Vol] 0.1 103/mcL Normal 0.0 - 0.3 10^3/mcL Workflow SS Basophils/100 WBC (Bld) 0.5 % Normal 0.0 - 2.5 % Workflow SS Bilirubin [Mass/Vol] 0.30 mg/dL Normal 0.20 - 1.20 mg/dL ADM SS Comment on above: Interpretive Data: U se of this assay is not recommended for patients undergoing treatment with eltrombopag due to the potential for falsely elevated results. Calcium [Mass/Vol] 9.3 mg/dL Normal 8.7 - 10. 4 mg/dL ADM SS Chloride [Moles/Vol] 98 mmol/L Normal 98 - 11 0 mEq/L ADM SS CO2 [Moles/Vol] 35 mmol/L High 22 - 32 mEq/L ADM SS Creatinine [Mass/Vol] 0.71 mg/dL Normal 0.50 - 1.20 mg/dL ADM SS Comment on above: Interpretive Data: T esting performed on Backchat analyzer using enzymatic creatinine methodology. Electrolyte Balance 8.0 mEq/L Normal 4.0 - 15 .0 mEq/L ADM SS Eosinophils (Bld) [#/Vol] 0.5 103/mcL Normal 0.0 - 0.7 10^3/mcL Workflow SS Eosinophils/100 WBC (Bld) 4.0 % Normal 0.0 - 6.0 % Workflow SS Erythrocyte distribution width (RBC) [Ratio] 14.7 % Normal 11.5 - 15.5 % Workflow SS Estimated Glomerular Filtration Rate 109 ml/min/1.73sqm Invalid Interpretation Code ADM SS Comment on above: Interpretive Data: Stages of [...] race factor to calculate the eGFR results. Globulin 3.5 G/dL Normal 2.5 - 4.2 G/dL ADM SS Glucose [Mass/Vol] 108 mg/dL Normal 70 - 110 mg/dL ADM SS Hematocrit (Bld) [Volume fraction] 32.7 % Low 34.0 - 46.0 % Workflow SS Hemoglobin (Bld) [Mass/Vol] 10.7 G/dL Low 12.0 - 16.0 G/dL Workflow SS Lymphocytes (Bld) [#/Vol] 1.8 103/mcL Normal 0.9 - 4.3 10^3/mcL AH Workflow SS Lymphocytes/100 WBC (Bld) 15.3 % Low 20.0 - 40.0 % Workflow SS Magnesium [Mass/Vol] 2.3 mg/dL Normal 1.6 - 2 .4 mg/dL ADM SS MCH (RBC) [Entitic mass] 31.2 pg Normal 27.0 - 33.0 pg Workflow SS MCHC 32.7 G/dL Normal 32.0 - 36.0 G/dL Workflow SS MCV (RBC) [Entitic vol] 95.2 fL Normal 80.0 - 99.0 fL Workflow SS Monocytes (Bld) [#/Vol] 1.4 103/mcL Normal 0.1 - 1.4 10^3/mcL AH Workflow SS Monocytes/100 WBC (Bld) 11.6 % Normal 2.0 - 13.0 % AH Workflow SS Neutrophils (Bld) [#/Vol] 8.2 103/mcL High 2.3 - 8.1 10^3/mcL Workflow SS Neutrophils/100 WBC (Bld) 68.6 % Normal 50.0 - 75.0 % Workflow SS Platelet mean volume (Bld) [Entitic vol] 9.8 fL Normal 6.6 - 10.5 fL Workflow SS Platelets (Bld) [#/Vol] 172 103/mcL Normal 150 - 450 10^3/mcL AH Workflow SS Potassium [Moles/Vol] 4.1 mmol/L Normal 3.5 - 5.0 mEq/L ADM SS Protein [Mass/Vol] 6.9 G/dL Normal 5.7 - 8.2 G/dL ADM SS RBC (Bld) [#/Vol] 3.43 106/mcL Low 4.10 - 5.3 0 10^6/mcL Workflow SS Sodium [Moles/Vol] 141 mmol/L Normal 136 - 145 mEq/L ADM SS Urea nitrogen [Mass/Vol] 30.0 mg/dL High 8.0 - 22.0 mg/dL ADM SS Urea nitrogen/Creatinine [Mass ratio] 42.3 ratio High 10.0 - 22.0 ratio ADM SS WBC (Bld) [#/Vol] 11.9 103/mcL High 4.5 - 10.8 10^3/mcL Workflow SS MGon 08-27-2024 Magnesium [Mass/Vol] 2.3 mg/dL Normal 1.6-2.4 [facility] Comment on above: Performed By: #### C BC, ADIFF, ANEU, MG, GFR, CMP ####[place] [address] .Auto Diffon 08-26-2024 Basophil, Absolute 0.1 10 3/mcL Normal 0.0-0.3 [facility] Comment on above: Performed By: #### M G, ADIFF, GFR, CBC, ANEU, CMP ####[address] [address] Basophils/100 WBC (Bld) 0.7 % Normal 0.0-2.5 [facility] Comment on above: Performed By: #### M G, ADIFF, GFR, CBC, ANEU, CMP ####[address] [address] Eosinophil, Absolute 0.5 10 3/mcL Normal 0.0-0.7 [facility] Comment on above: Performed By: #### M G, ADIFF, GFR, CBC, ANEU, CMP ####[address] [address] Eosinophils/100 WBC (Bld) 4.7 % Normal 0.0-6.0 [facility] Comment on above: Performed By: #### M G, ADIFF, GFR, CBC, ANEU, CMP ####[address] [address] Lymphocyte, Absolute 2.1 10 3/mcL Normal 0.9-4.3 [facility] Comment on above: Performed By: #### M G, ADIFF, GFR, CBC, ANEU, CMP ####[address] [address] Lymphocytes/100 WBC (Bld) 19.5 % Low 20.0-40.0 [facility] Comment on above: Performed By: #### M G, ADIFF, GFR, CBC, ANEU, CMP ####[address] [address] Monocyte, Absolute 1.3 10 3/mcL Normal 0.1-1.4 [facility] Comment on above: Performed By: #### M G, ADIFF, GFR, CBC, ANEU, CMP ####[address] [address] Monocytes/100 WBC (Bld) 11.9 % Normal 2.0-13.0 [facility] Comment on above: Performed By: #### M G, ADIFF, GFR, CBC, ANEU, CMP ####[address] [address] Neutrophils/100 WBC (Bld) 63.2 % Normal 50.0-75.0 [facility] Comment on above: Performed By: #### M G, ADIFF, GFR, CBC, ANEU, CMP ####[address] [address] .GFRon 08-26-2024 Estimated Glomerular Filtration Rate 115 ml/min/1.73sqm Normal [facility] Comment on above: Result Comment: [...] theeGFR results. Performed By: #### G FR, BMP ####[place] [address] Estimated Glomerular Filtration Rate 115 ml/min/1.73sqm Normal [facility] Comment on above: Result Comment: [...] theeGFR results. Performed By: #### M G, ADIFF, GFR, CBC, ANEU, CMP ####[place] [address] .NEUABSon 08-26-2024 Neutrophil, Absolute 6.9 10 3/mcL Normal 2.3-8.1 [facility] Comment on above: Performed By: #### M G, ADIFF, GFR, CBC, ANEU, CMP ####[place] [address] BMPon 08-26-2024 BUN/Creatinine Ratio 52.5 ratio High 10.0-22.0 [facility] Comment on above: Performed By: #### G FR, BMP ####[place] [address] Calcium [Mass/Vol] 9.1 mg/dL Normal 8.7-10.4 [facility] Comment on above: Performed By: #### Tiera MUHAMMAD, BMP ####[address] [address] Chloride [Moles/Vol] 96 mmol/L Low 98-110 [facility] Comment on above: Performed By: #### Tiera MUHAMMAD, BMP ####[address] [address] CO2 [Moles/Vol] 35 mmol/L High 22-32 [facility] Comment on above: Performed By: #### Tiera MUHAMMAD, BMP ####[address] [address] Creatinine [Mass/Vol] 0.59 mg/dL Normal 0.50-1.20 [facility] Comment on above: Result Comment: Test ing performed on Backchat analyzer using enzymatic creatinine methodology. Performed By: #### Tiera MUHAMMAD, BMP ####[address] [address] Electrolyte Balance 9.0 mEq/L Normal 4.0-15.0 [facility] Comment on above: Performed By: #### Tiera MUHAMMAD, BMP ####[address] [address] Glucose [Mass/Vol] 85 mg/dL Normal 70-110 [facility] Comment on above: Performed By: #### Tiera MUHAMMAD, BMP ####[address] [address] Potassium [Moles/Vol] 4.7 mmol/L Normal 3.5-5.0 [facility] Comment on above: Performed By: #### Tiera MUHAMMAD, BMP ####[address] [address] Sodium [Moles/Vol] 140 mmol/L Normal 136-145 [facility] Comment on above: Performed By: #### Tiera MUHAMMAD, BMP ####[address] [address] Urea nitrogen [Mass/Vol] 31.0 mg/dL High 8.0-22.0 [facility] Comment on above: Performed By: #### G FR, BMP ####[place] [address] CBCon 08-26-2024 Erythrocyte distribution width (RBC) [Ratio] 14.8 % Normal 11.5-15.5 [facility] Comment on above: Performed By: #### M G, ADIFF, GFR, CBC, ANEU, CMP ####[place] [address] Hematocrit (Bld) [Volume fraction] 32.8 % Low 34.0-46.0 [facility] Comment on above: Performed By: #### M G, ADIFF, GFR, CBC, ANEU, CMP ####[place] [address] Hgb 10.6 G/dL Low 12.0-16.0 [facility] Comment on above: Performed By: #### M G, ADIFF, GFR, CBC, ANEU, CMP ####[place] [address] MCH (RBC) [Entitic mass] 31.1 pg Normal 27.0-33.0 [facility] Comment on above: Performed By: #### M G, ADIFF, GFR, CBC, ANEU, CMP ####[place] [address] MCHC 32.2 G/dL Normal 32.0-36.0 [facility] Comment on above: Performed By: #### M G, ADIFF, GFR, CBC, ANEU, CMP ####[place] [address] MCV (RBC) [Entitic vol] 96.6 fL Normal 80.0-99.0 [facility] Comment on above: Performed By: #### M G, ADIFF, GFR, CBC, ANEU, CMP ####[place] [address] Platelet 181 10 3/mcL Normal 150-450 [facility] Comment on above: Performed By: #### M G, ADIFF, GFR, CBC, ANEU, CMP ####[place] [address] Platelet mean volume (Bld) [Entitic vol] 9.7 fL Normal 6.6-10.5 [facility] Comment on above: Performed By: #### M G, ADIFF, GFR, CBC, ANEU, CMP ####[place] [address] RBC 3.40 10 6/mcL Low 4.10-5.30 [facility] Comment on above: Performed By: #### M G, ADIFF, GFR, CBC, ANEU, CMP ####[place] [address] WBC 11.0 10 3/mcL High 4.5-10.8 [facility] Comment on above: Performed By: #### M G, ADIFF, GFR, CBC, ANEU, CMP ####[place] [address] CMPon 08-26-2024 Albumin Level 3.4 G/dL Normal 3.2-4.8 [facility] Comment on above: Performed By: #### M G, ADIFF, GFR, CBC, ANEU, CMP ####[place] [address] Albumin/Globulin [Mass ratio] 1.0 {ratio} Normal 0.9-1.6 [facility] Comment on above: Performed By: #### M G, ADIFF, GFR, CBC, ANEU, CMP ####[place] [address] ALP [Catalytic activity/Vol] 133 U/L High 38-126 [facility] Comment on above: Performed By: #### M G, ADIFF, GFR, CBC, ANEU, CMP ####[place] [address] ALT [Catalytic activity/Vol] 17 U/L Normal 10-49 [facility] Comment on above: Performed By: #### M G, ADIFF, GFR, CBC, ANEU, CMP ####[place] [address] AST [Catalytic activity/Vol] 20 U/L Normal 8-34 [facility] Comment on above: Performed By: #### M G, ADIFF, GFR, CBC, ANEU, CMP ####[place] [id number] Bili Total 0.20 mg/dL Normal 0.20-1.20 [facility] Comment on above: Result Comment: Use of this assay is not recommended for patients undergoing treatment with eltrombopag due to the potential for falsely elevated results. Performed By: #### M G, ADIFF, GFR, CBC, ANEU, CMP ####[place] [address] BUN/Creatinine Ratio 38.3 ratio High 10.0-22.0 [facility] Comment on above: Performed By: #### M G, ADIFF, GFR, CBC, ANEU, CMP ####[place] [address] Calcium [Mass/Vol] 9.2 mg/dL Normal 8.7-10.4 [facility] Comment on above: Performed By: #### M G, ADIFF, GFR, CBC, ANEU, CMP ####[place] [address] Chloride [Moles/Vol] 99 mmol/L Normal 98-110 [facility] Comment on above: Performed By: #### M G, ADIFF, GFR, CBC, ANEU, CMP ####[place] [address] CO2 [Moles/Vol] 33 mmol/L High 22-32 [facility] Comment on above: Performed By: #### M G, ADIFF, GFR, CBC, ANEU, CMP ####[place] [address] Creatinine [Mass/Vol] 0.60 mg/dL Normal 0.50-1.20 [facility] Comment on above: Result Comment: Test ing performed on Backchat analyzer using enzymatic creatinine methodology. Performed By: #### M G, ADIFF, GFR, CBC, ANEU, CMP ####[place] [address] Electrolyte Balance 10.0 mEq/L Normal 4.0-15.0 [facility] Comment on above: Performed By: #### M G, ADIFF, GFR, CBC, ANEU, CMP ####[address] [address] Globulin 3.3 G/dL Normal 2.5-4.2 [facility] Comment on above: Performed By: #### M G, ADIFF, GFR, CBC, ANEU, CMP ####[place] [address] Glucose [Mass/Vol] 111 mg/dL High 70-110 [facility] Comment on above: Performed By: #### M G, ADIFF, GFR, CBC, ANEU, CMP ####[address] [address] Potassium [Moles/Vol] 4.4 mmol/L Normal 3.5-5.0 [facility] Comment on above: Performed By: #### M G, ADIFF, GFR, CBC, ANEU, CMP ####[place] [address] Sodium [Moles/Vol] 142 mmol/L Normal 136-145 [facility] Comment on above: Performed By: #### M G, ADIFF, GFR, CBC, ANEU, CMP ####[place] [address] Total Protein 6.7 G/dL Normal 5.7-8.2 [facility] Comment on above: Performed By: #### M G, ADIFF, GFR, CBC, ANEU, CMP ####[place] [address] Urea nitrogen [Mass/Vol] 23.0 mg/dL High 8.0-22.0 [facility] Comment on above: Performed By: #### M G, ADIFF, GFR, CBC, ANEU, CMP ####[address] [address] LABORATORYOrdered By: SYSTEM SYSTEM on 08-26-2024 Calcium [Mass/Vol] 9.1 mg/dL Normal 8.7 - 10. 4 mg/dL AH ADM SS Chloride [Moles/Vol] 96 mmol/L Low 98 - 11 0 mEq/L AH ADM SS CO2 [Moles/Vol] 35 mmol/L High 22 - 32 mEq/L ADM SS Creatinine [Mass/Vol] 0.59 mg/dL Normal 0.50 - 1.20 mg/dL ADM SS Comment on above: Interpretive Data: T esting performed on Backchat analyzer using enzymatic creatinine methodology. Electrolyte Balance 9.0 mEq/L Normal 4.0 - 15 .0 mEq/L ADM SS Estimated Glomerular Filtration Rate 115 ml/min/1.73sqm Invalid Interpretation Code ADM SS Comment on above: Interpretive Data: Stages of [...] to calculate the eGFR results. Glucose [Mass/Vol] 85 mg/dL Normal 70 - 110 mg/dL ADM SS Potassium [Moles/Vol] 4.7 mmol/L Normal 3.5 - 5.0 mEq/L ADM SS Sodium [Moles/Vol] 140 mmol/L Normal 136 - 145 mEq/L ADM SS Urea nitrogen [Mass/Vol] 31.0 mg/dL High 8.0 - 22.0 mg/dL ADM SS Urea nitrogen/Creatinine [Mass ratio] 52.5 ratio High 10.0 - 22.0 ratio AH ADM SS Albumin BCP dye [Mass/Vol] 3.4 G/dL Normal 3.2 - 4.8 G/dL ADM SS Albumin/Globulin [Mass ratio] 1.0 {ratio} Normal 0.9 - 1.6 ratio ADM SS ALP [Catalytic activity/Vol] 133 U/L High 38 - 126 U/L ADM SS ALT No additional P-5'-P [Catalytic activity/Vol] 17 U/L Normal 10 - 49 U/L ADM SS AST [Catalytic activity/Vol] 20 U/L Normal 8 - 34 U/L ADM SS Basophils (Bld) [#/Vol] 0.1 103/mcL Normal 0.0 - 0.3 10^3/mcL Workflow SS Basophils/100 WBC (Bld) 0.7 % Normal 0.0 - 2.5 % Workflow SS Bilirubin [Mass/Vol] 0.20 mg/dL Normal 0.20 - 1.20 mg/dL ADM SS Comment on above: Interpretive Data: U se of this assay is not recommended for patients undergoing treatment with eltrombopag due to the potential for falsely elevated results. Calcium [Mass/Vol] 9.2 mg/dL Normal 8.7 - 10. 4 mg/dL ADM SS Chloride [Moles/Vol] 99 mmol/L Normal 98 - 11 0 mEq/L ADM SS CO2 [Moles/Vol] 33 mmol/L High 22 - 32 mEq/L ADM SS Creatinine [Mass/Vol] 0.60 mg/dL Normal 0.50 - 1.20 mg/dL ADM SS Comment on above: Interpretive Data: T esting performed on [employer] analyzer using enzymatic creatinine methodology. Electrolyte Balance 10.0 mEq/L Normal 4.0 - 15 .0 mEq/L ADM SS Eosinophils (Bld) [#/Vol] 0.5 103/mcL Normal 0.0 - 0.7 10^3/mcL Workflow SS Eosinophils/100 WBC (Bld) 4.7 % Normal 0.0 - 6.0 % Workflow SS Erythrocyte distribution width (RBC) [Ratio] 14.8 % Normal 11.5 - 15.5 % Workflow SS Estimated Glomerular Filtration Rate 115 ml/min/1.73sqm Invalid Interpretation Code ADM SS Comment on above: Interpretive Data: Stages of [...] race factor to calculate the eGFR results. Globulin 3.3 G/dL Normal 2.5 - 4.2 G/dL ADM SS Glucose [Mass/Vol] 111 mg/dL High 70 - 110 mg/dL ADM SS Hematocrit (Bld) [Volume fraction] 32.8 % Low 34.0 - 46.0 % AH Workflow SS Hemoglobin (Bld) [Mass/Vol] 10.6 G/dL Low 12.0 - 16.0 G/dL AH Workflow SS Lymphocytes (Bld) [#/Vol] 2.1 103/mcL Normal 0.9 - 4.3 10^3/mcL AH Workflow SS Lymphocytes/100 WBC (Bld) 19.5 % Low 20.0 - 40.0 % AH Workflow SS Magnesium [Mass/Vol] 2.2 mg/dL Normal 1.6 - 2 .4 mg/dL ADM SS MCH (RBC) [Entitic mass] 31.1 pg Normal 27.0 - 33.0 pg AH Workflow SS MCHC 32.2 G/dL Normal 32.0 - 36.0 G/dL Workflow SS MCV (RBC) [Entitic vol] 96.6 fL Normal 80.0 - 99.0 fL AH Workflow SS Monocytes (Bld) [#/Vol] 1.3 103/mcL Normal 0.1 - 1.4 10^3/mcL AH Workflow SS Monocytes/100 WBC (Bld) 11.9 % Normal 2.0 - 13.0 % AH Workflow SS Neutrophils (Bld) [#/Vol] 6.9 103/mcL Normal 2.3 - 8.1 10^3/mcL AH Workflow SS Neutrophils/100 WBC (Bld) 63.2 % Normal 50.0 - 75.0 % AH Workflow SS Platelet mean volume (Bld) [Entitic vol] 9.7 fL Normal 6.6 - 10.5 fL Workflow SS Platelets (Bld) [#/Vol] 181 103/mcL Normal 150 - 450 10^3/mcL AH Workflow SS Potassium [Moles/Vol] 4.4 mmol/L Normal 3.5 - 5.0 mEq/L ADM SS Protein [Mass/Vol] 6.7 G/dL Normal 5.7 - 8.2 G/dL ADM SS RBC (Bld) [#/Vol] 3.40 106/mcL Low 4.10 - 5.3 0 10^6/mcL AH Workflow SS Sodium [Moles/Vol] 142 mmol/L Normal 136 - 145 mEq/L AH ADM SS Urea nitrogen [Mass/Vol] 23.0 mg/dL High 8.0 - 22.0 mg/dL AH ADM SS Urea nitrogen/Creatinine [Mass ratio] 38.3 ratio High 10.0 - 22.0 ratio AH ADM SS WBC (Bld) [#/Vol] 11.0 103/mcL High 4.5 - 10.8 10^3/mcL AH Workflow SS MGon 08-26-2024 Magnesium [Mass/Vol] 2.2 mg/dL Normal 1.6-2.4 [facility] Comment on above: Performed By: #### M G, ADIFF, GFR, CBC, ANEU, CMP ####[address] [address] .Auto Diffon 08-25-2024 Basophil, Absolute 0.0 10 3/mcL Normal 0.0-0.3 [facility] Comment on above: Performed By: #### A DAISY, MG, CBC, GFR, ADIFF, CMP ####[address] [address] Basophils/100 WBC (Bld) 0.4 % Normal 0.0-2.5 [facility] Comment on above: Performed By: #### A DAISY, MG, CBC, GFR, ADIFF, CMP ####[address] [address] Eosinophil, Absolute 0.5 10 3/mcL Normal 0.0-0.7 [facility] Comment on above: Performed By: #### A DAISY, MG, CBC, GFR, ADIFF, CMP ####[address] [address] Eosinophils/100 WBC (Bld) 4.9 % Normal 0.0-6.0 [facility] Comment on above: Performed By: #### A DAISY, MG, CBC, GFR, ADIFF, CMP ####[address] [address] Lymphocyte, Absolute 1.9 10 3/mcL Normal 0.9-4.3 [facility] Comment on above: Performed By: #### A DAISY, MG, CBC, GFR, ADIFF, CMP ####[address] [address] Lymphocytes/100 WBC (Bld) 17.5 % Low 20.0-40.0 [facility] Comment on above: Performed By: #### A DAISY, MG, CBC, GFR, ADIFF, CMP ####[address] [address] Monocyte, Absolute 1.0 10 3/mcL Normal 0.1-1.4 [facility] Comment on above: Performed By: #### A DAISY, MG, CBC, GFR, ADIFF, CMP ####[address] [address] Monocytes/100 WBC (Bld) 9.9 % Normal 2.0-13.0 [facility] Comment on above: Performed By: #### A DAISY, MG, CBC, GFR, ADIFF, CMP ####[address] [address] Neutrophils/100 WBC (Bld) 67.3 % Normal 50.0-75.0 [facility] Comment on above: Performed By: #### A DAISY, MG, CBC, GFR, ADIFF, CMP ####[address] [address] .GFRon 08-25-2024 Estimated Glomerular Filtration Rate 119 ml/min/1.73sqm Normal [facility] Comment on above: Result Comment: [...] theeGFR results. Performed By: #### G FR, BMP ####[address] [address] Estimated Glomerular Filtration Rate 116 ml/min/1.73sqm Normal [facility] Comment on above: Result Comment: [...] theeGFR results. Performed By: #### A DAISY, MG, CBC, GFR, ADIFF, CMP ####[place] [address] .NEUABSon 08-25-2024 Neutrophil, Absolute 7.1 10 3/mcL Normal 2.3-8.1 [facility] Comment on above: Performed By: #### A DAISY, MG, CBC, GFR, ADIFF, CMP ####[place] [address] BMPon 08-25-2024 BUN/Creatinine Ratio 48.1 ratio High 10.0-22.0 [facility] Comment on above: Performed By: #### G FR, BMP ####[place] [address] Calcium [Mass/Vol] 9.4 mg/dL Normal 8.7-10.4 [facility] Comment on above: Performed By: #### G FR, BMP ####[place] [address] Chloride [Moles/Vol] 96 mmol/L Low 98-110 [facility] Comment on above: Performed By: #### G FR, BMP ####[place] [address] CO2 [Moles/Vol] 32 mmol/L Normal 22-32 [facility] Comment on above: Performed By: #### G FR, BMP ####[place] [address] Creatinine [Mass/Vol] 0.52 mg/dL Normal 0.50-1.20 [facility] Comment on above: Result Comment: Test ing performed on Backchat analyzer using enzymatic creatinine methodology. Performed By: #### G FR, BMP ####[place] [address] Electrolyte Balance 12.0 mEq/L Normal 4.0-15.0 [facility] Comment on above: Performed By: #### G FR, BMP ####[place] [address] Glucose [Mass/Vol] 111 mg/dL High 70-110 [facility] Comment on above: Performed By: #### G FR, BMP ####[place] [address] Potassium [Moles/Vol] 4.6 mmol/L Normal 3.5-5.0 [facility] Comment on above: Result Comment: Spec imen slightly hemolyzed. Performed By: #### G FR, BMP ####[place] [address] Sodium [Moles/Vol] 140 mmol/L Normal 136-145 [facility] Comment on above: Performed By: #### G FR, BMP ####[place] [address] Urea nitrogen [Mass/Vol] 25.0 mg/dL High 8.0-22.0 [facility] Comment on above: Performed By: #### G FR, BMP ####[address] [address] CBCon 08-25-2024 Erythrocyte distribution width (RBC) [Ratio] 14.9 % Normal 11.5-15.5 [facility] Comment on above: Performed By: #### A DAISY, MG, CBC, GFR, ADIFF, CMP ####[place] [address] Hematocrit (Bld) [Volume fraction] 36.1 % Normal 34.0-46.0 [facility] Comment on above: Performed By: #### A DAISY, MG, CBC, GFR, ADIFF, CMP ####[place] [address] Hgb 11.6 G/dL Low 12.0-16.0 [facility] Comment on above: Performed By: #### A DAISY, MG, CBC, GFR, ADIFF, CMP ####[place] [address] MCH (RBC) [Entitic mass] 30.9 pg Normal 27.0-33.0 [facility] Comment on above: Performed By: #### A DAISY, MG, CBC, GFR, ADIFF, CMP ####[place] [address] MCHC 32.2 G/dL Normal 32.0-36.0 [facility] Comment on above: Performed By: #### A DIASY, MG, CBC, GFR, ADIFF, CMP ####[place] [address] MCV (RBC) [Entitic vol] 96.0 fL Normal 80.0-99.0 [facility] Comment on above: Performed By: #### A DAISY, MG, CBC, GFR, ADIFF, CMP ####[place] [address] Platelet 203 10 3/mcL Normal 150-450 [facility] Comment on above: Performed By: #### A DAISY, MG, CBC, GFR, ADIFF, CMP ####[place] [address] Platelet mean volume (Bld) [Entitic vol] 9.6 fL Normal 6.6-10.5 [facility] Comment on above: Performed By: #### A DAISY, MG, CBC, GFR, ADIFF, CMP ####[place] [address] RBC 3.76 10 6/mcL Low 4.10-5.30 [facility] Comment on above: Performed By: #### A DAISY, MG, CBC, GFR, ADIFF, CMP ####[place] [address] WBC 10.6 10 3/mcL Normal 4.5-10.8 [facility] Comment on above: Performed By: #### A DAISY, MG, CBC, GFR, ADIFF, CMP ####[place] [address] CMPon 08-25-2024 Albumin Level 3.7 G/dL Normal 3.2-4.8 [facility] Comment on above: Performed By: #### A DAISY, MG, CBC, GFR, ADIFF, CMP ####[place] [address] Albumin/Globulin [Mass ratio] 1.0 {ratio} Normal 0.9-1.6 [facility] Comment on above: Performed By: #### A DAISY, MG, CBC, GFR, ADIFF, CMP ####[place] [address] ALP [Catalytic activity/Vol] 145 U/L High 38-126 [facility] Comment on above: Performed By: #### A DAISY, MG, CBC, GFR, ADIFF, CMP ####[place] [address] ALT [Catalytic activity/Vol] 22 U/L Normal 10-49 [facility] Comment on above: Performed By: #### A DAISY, MG, CBC, GFR, ADIFF, CMP ####[place] [address] AST [Catalytic activity/Vol] 21 U/L Normal 8-34 [facility] Comment on above: Performed By: #### A DAISY, MG, CBC, GFR, ADIFF, CMP ####[place] [address] Bili Total 0.40 mg/dL Normal 0.20-1.20 [facility] Comment on above: Result Comment: Use of this assay is not recommended for patients undergoing treatment with eltrombopag due to the potential for falsely elevated results. Performed By: #### A DAISY, MG, CBC, GFR, ADIFF, CMP ####[place] [address] BUN/Creatinine Ratio 42.1 ratio High 10.0-22.0 [facility] Comment on above: Performed By: #### A DAISY, MG, CBC, GFR, ADIFF, CMP ####[address] [address] Calcium [Mass/Vol] 9.4 mg/dL Normal 8.7-10.4 [facility] Comment on above: Performed By: #### A DAISY, MG, CBC, GFR, ADIFF, CMP ####[address] [address] Chloride [Moles/Vol] 96 mmol/L Low 98-110 [facility] Comment on above: Performed By: #### A DAISY, MG, CBC, GFR, ADIFF, CMP ####[address] [address] CO2 [Moles/Vol] 36 mmol/L High 22-32 [facility] Comment on above: Performed By: #### A DAISY, MG, CBC, GFR, ADIFF, CMP ####[place] [address] Creatinine [Mass/Vol] 0.57 mg/dL Normal 0.50-1.20 [facility] Comment on above: Result Comment: Test ing performed on Backchat analyzer using enzymatic creatinine methodology. Performed By: #### A DAISY, MG, CBC, GFR, ADIFF, CMP ####[address] [address] Electrolyte Balance 8.0 mEq/L Normal 4.0-15.0 [facility] Comment on above: Performed By: #### A DAISY, MG, CBC, GFR, ADIFF, CMP ####[address] [address] Globulin 3.8 G/dL Normal 2.5-4.2 [facility] Comment on above: Performed By: #### A DAISY, MG, CBC, GFR, ADIFF, CMP ####[place] [id number] Glucose [Mass/Vol] 100 mg/dL Normal 70-110 [facility] Comment on above: Performed By: #### A DAISY, MG, CBC, GFR, ADIFF, CMP ####[address] [address] Potassium [Moles/Vol] 4.3 mmol/L Normal 3.5-5.0 [facility] Comment on above: Performed By: #### A DAISY, MG, CBC, GFR, ADIFF, CMP ####[address] [address] Sodium [Moles/Vol] 140 mmol/L Normal 136-145 [facility] Comment on above: Performed By: #### A DAISY, MG, CBC, GFR, ADIFF, CMP ####[address] [address] Total Protein 7.5 G/dL Normal 5.7-8.2 [facility] Comment on above: Performed By: #### A DAISY, MG, CBC, GFR, ADIFF, CMP ####[address] [address] Urea nitrogen [Mass/Vol] 24.0 mg/dL High 8.0-22.0 [facility] Comment on above: Performed By: #### A DAISY, MG, CBC, GFR, ADIFF, CMP ####[place] [address] LABORATORYOrdered By: SYSTEM SYSTEM on 08-25-2024 Albumin BCP dye [Mass/Vol] 3.7 G/dL Normal 3.2 - 4.8 G/dL ADM SS Albumin/Globulin [Mass ratio] 1.0 {ratio} Normal 0.9 - 1.6 ratio ADM SS ALP [Catalytic activity/Vol] 145 U/L High 38 - 126 U/L ADM SS ALT No additional P-5'-P [Catalytic activity/Vol] 22 U/L Normal 10 - 49 U/L ADM SS AST [Catalytic activity/Vol] 21 U/L Normal 8 - 34 U/L ADM SS Basophils (Bld) [#/Vol] 0.0 103/mcL Normal 0.0 - 0.3 10^3/mcL Workflow SS Basophils/100 WBC (Bld) 0.4 % Normal 0.0 - 2.5 % Workflow SS Bilirubin [Mass/Vol] 0.40 mg/dL Normal 0.20 - 1.20 mg/dL ADM SS Comment on above: Interpretive Data: U se of this assay is not recommended for patients undergoing treatment with eltrombopag due to the potential for falsely elevated results. Eosinophils (Bld) [#/Vol] 0.5 103/mcL Normal 0.0 - 0.7 10^3/mcL AH Workflow SS Eosinophils/100 WBC (Bld) 4.9 % Normal 0.0 - 6.0 % AH Workflow SS Erythrocyte distribution width (RBC) [Ratio] 14.9 % Normal 11.5 - 15.5 % AH Workflow SS Globulin 3.8 G/dL Normal 2.5 - 4.2 G/dL ADM SS Hematocrit (Bld) [Volume fraction] 36.1 % Normal 34.0 - 46.0 % AH Workflow SS Hemoglobin (Bld) [Mass/Vol] 11.6 G/dL Low 12.0 - 16.0 G/dL AH Workflow SS Lymphocytes (Bld) [#/Vol] 1.9 103/mcL Normal 0.9 - 4.3 10^3/mcL Workflow SS Lymphocytes/100 WBC (Bld) 17.5 % Low 20.0 - 40.0 % AH Workflow SS Magnesium [Mass/Vol] 2.1 mg/dL Normal 1.6 - 2 .4 mg/dL ADM SS MCH (RBC) [Entitic mass] 30.9 pg Normal 27.0 - 33.0 pg AH Workflow SS MCHC 32.2 G/dL Normal 32.0 - 36.0 G/dL AH Workflow SS MCV (RBC) [Entitic vol] 96.0 fL Normal 80.0 - 99.0 fL AH Workflow SS Monocytes (Bld) [#/Vol] 1.0 103/mcL Normal 0.1 - 1.4 10^3/mcL AH Workflow SS Monocytes/100 WBC (Bld) 9.9 % Normal 2.0 - 13.0 % AH Workflow SS Neutrophils (Bld) [#/Vol] 7.1 103/mcL Normal 2.3 - 8.1 10^3/mcL AH Workflow SS Neutrophils/100 WBC (Bld) 67.3 % Normal 50.0 - 75.0 % AH Workflow SS Platelet mean volume (Bld) [Entitic vol] 9.6 fL Normal 6.6 - 10.5 fL AH Workflow SS Platelets (Bld) [#/Vol] 203 103/mcL Normal 150 - 450 10^3/mcL AH Workflow SS Protein [Mass/Vol] 7.5 G/dL Normal 5.7 - 8.2 G/dL AH ADM SS RBC (Bld) [#/Vol] 3.76 106/mcL Low 4.10 - 5.3 0 10^6/mcL AH Workflow SS WBC (Bld) [#/Vol] 10.6 103/mcL Normal 4.5 - 10.8 10^3/mcL AH Workflow SS MGon 08-25-2024 Magnesium [Mass/Vol] 2.1 mg/dL Normal 1.6-2.4 [facility] Comment on above: Performed By: #### A DAISY, MG, CBC, GFR, ADIFF, CMP ####[address] [address] .Auto Diffon 08-24-2024 Basophil, Absolute 0.1 10 3/mcL Normal 0.0-0.3 [facility] Comment on above: Performed By: #### M G, ADIFF, ANEU, CBC, GFR, CMP ####[address] [address] Basophils/100 WBC (Bld) 0.6 % Normal 0.0-2.5 [facility] Comment on above: Performed By: #### M G, ADIFF, ANEU, CBC, GFR, CMP ####[address] [address] Eosinophil, Absolute 0.6 10 3/mcL Normal 0.0-0.7 [facility] Comment on above: Performed By: #### M G, ADIFF, ANEU, CBC, GFR, CMP ####[address] [address] Eosinophils/100 WBC (Bld) 5.1 % Normal 0.0-6.0 [facility] Comment on above: Performed By: #### M G, ADIFF, ANEU, CBC, GFR, CMP ####[address] [address] Lymphocyte, Absolute 1.7 10 3/mcL Normal 0.9-4.3 [facility] Comment on above: Performed By: #### M G, ADIFF, ANEU, CBC, GFR, CMP ####[address] [address] Lymphocytes/100 WBC (Bld) 15.5 % Low 20.0-40.0 [facility] Comment on above: Performed By: #### M G, ADIFF, ANEU, CBC, GFR, CMP ####[address] [address] Monocyte, Absolute 0.9 10 3/mcL Normal 0.1-1.4 [facility] Comment on above: Performed By: #### M G, ADIFF, ANEU, CBC, GFR, CMP ####[address] [address] Monocytes/100 WBC (Bld) 8.1 % Normal 2.0-13.0 [facility] Comment on above: Performed By: #### M G, ADIFF, ANEU, CBC, GFR, CMP ####[address] [address] Neutrophils/100 WBC (Bld) 70.7 % Normal 50.0-75.0 [facility] Comment on above: Performed By: #### M G, ADIFF, ANEU, CBC, GFR, CMP ####[address] [address] .GFRon 08-24-2024 Estimated Glomerular Filtration Rate 120 ml/min/1.73sqm Normal [facility] Comment on above: Result Comment: [...] theeGFR results. Performed By: #### M G, ADIFF, ANEU, CBC, GFR, CMP ####[place] [address] .NEUABSon 08-24-2024 Neutrophil, Absolute 7.8 10 3/mcL Normal 2.3-8.1 [facility] Comment on above: Performed By: #### M G, ADIFF, ANEU, CBC, GFR, CMP ####[place] [address] CBCon 08-24-2024 Erythrocyte distribution width (RBC) [Ratio] 14.9 % Normal 11.5-15.5 [facility] Comment on above: Performed By: #### M G, ADIFF, ANEU, CBC, GFR, CMP ####[place] [address] Hematocrit (Bld) [Volume fraction] 39.4 % Normal 34.0-46.0 [facility] Comment on above: Performed By: #### M G, ADIFF, ANEU, CBC, GFR, CMP ####[place] [address] Hgb 12.5 G/dL Normal 12.0-16.0 [facility] Comment on above: Performed By: #### M G, ADIFF, ANEU, CBC, GFR, CMP ####[place] [address] MCH (RBC) [Entitic mass] 30.4 pg Normal 27.0-33.0 [facility] Comment on above: Performed By: #### M G, ADIFF, ANEU, CBC, GFR, CMP ####[place] [address] MCHC 31.7 G/dL Low 32.0-36.0 [facility] Comment on above: Performed By: #### M G, ADIFF, ANEU, CBC, GFR, CMP ####[place] [address] MCV (RBC) [Entitic vol] 95.9 fL Normal 80.0-99.0 [facility] Comment on above: Performed By: #### M G, ADIFF, ANEU, CBC, GFR, CMP ####[place] [address] Platelet 220 10 3/mcL Normal 150-450 [facility] Comment on above: Performed By: #### M G, ADIFF, ANEU, CBC, GFR, CMP ####[place] [address] Platelet mean volume (Bld) [Entitic vol] 9.2 fL Normal 6.6-10.5 [facility] Comment on above: Performed By: #### M G, ADIFF, ANEU, CBC, GFR, CMP ####[place] [address] RBC 4.11 10 6/mcL Normal 4.10-5.30 [facility] Comment on above: Performed By: #### M G, ADIFF, ANEU, CBC, GFR, CMP ####[place] [address] WBC 11.0 10 3/mcL High 4.5-10.8 [facility] Comment on above: Performed By: #### M G, ADIFF, ANEU, CBC, GFR, CMP ####[place] [address] CMPon 08-24-2024 Albumin Level 4.0 G/dL Normal 3.2-4.8 [facility] Comment on above: Performed By: #### M G, ADIFF, ANEU, CBC, GFR, CMP ####[place] [address] Albumin/Globulin [Mass ratio] 0.9 {ratio} Normal 0.9-1.6 [facility] Comment on above: Performed By: #### M G, ADIFF, ANEU, CBC, GFR, CMP ####[place] [address] ALP [Catalytic activity/Vol] 155 U/L High 38-126 [facility] Comment on above: Performed By: #### M G, ADIFF, ANEU, CBC, GFR, CMP ####[place] [address] ALT [Catalytic activity/Vol] 22 U/L Normal 10-49 [facility] Comment on above: Performed By: #### M G, ADIFF, ANEU, CBC, GFR, CMP ####[address] [address] AST [Catalytic activity/Vol] 21 U/L Normal 8-34 [facility] Comment on above: Performed By: #### M G, ADIFF, ANEU, CBC, GFR, CMP ####[address] [address] Bili Total 0.50 mg/dL Normal 0.20-1.20 [facility] Comment on above: Result Comment: Use of this assay is not recommended for patients undergoing treatment with eltrombopag due to the potential for falsely elevated results. Performed By: #### M G, ADIFF, ANEU, CBC, GFR, CMP ####[address] [address] BUN/Creatinine Ratio 38.0 ratio High 10.0-22.0 [facility] Comment on above: Performed By: #### M G, ADIFF, ANEU, CBC, GFR, CMP ####[address] [address] Calcium [Mass/Vol] 9.8 mg/dL Normal 8.7-10.4 [facility] Comment on above: Performed By: #### M G, ADIFF, ANEU, CBC, GFR, CMP ####[address] [address] Chloride [Moles/Vol] 96 mmol/L Low 98-110 [facility] Comment on above: Performed By: #### M G, ADIFF, ANEU, CBC, GFR, CMP ####[address] [address] CO2 [Moles/Vol] 34 mmol/L High 22-32 [facility] Comment on above: Performed By: #### M G, ADIFF, ANEU, CBC, GFR, CMP ####[address] [address] Creatinine [Mass/Vol] 0.50 mg/dL Normal 0.50-1.20 [facility] Comment on above: Result Comment: Test ing performed on Backchat analyzer using enzymatic creatinine methodology. Performed By: #### M G, ADIFF, ANEU, CBC, GFR, CMP ####[address] [address] Electrolyte Balance 10.0 mEq/L Normal 4.0-15.0 [facility] Comment on above: Performed By: #### M G, ADIFF, ANEU, CBC, GFR, CMP ####[address] [address] Globulin 4.3 G/dL High 2.5-4.2 [facility] Comment on above: Performed By: #### M G, ADIFF, ANEU, CBC, GFR, CMP ####[place] [id number] Glucose [Mass/Vol] 102 mg/dL Normal 70-110 [facility] Comment on above: Performed By: #### M G, ADIFF, ANEU, CBC, GFR, CMP ####[place] [id number] Potassium [Moles/Vol] 3.8 mmol/L Normal 3.5-5.0 [facility] Comment on above: Performed By: #### M G, ADIFF, ANEU, CBC, GFR, CMP ####[place] [address] Sodium [Moles/Vol] 140 mmol/L Normal 136-145 [facility] Comment on above: Performed By: #### M G, ADIFF, ANEU, CBC, GFR, CMP ####[place] [address] Total Protein 8.3 G/dL High 5.7-8.2 [facility] Comment on above: Performed By: #### M G, ADIFF, ANEU, CBC, GFR, CMP ####[place] [phone] Urea nitrogen [Mass/Vol] 19.0 mg/dL Normal 8.0-22.0 [facility] Comment on above: Performed By: #### M G, ADIFF, ANEU, CBC, GFR, CMP ####[address] [address] MGon 08-24-2024 Magnesium [Mass/Vol] 1.9 mg/dL Normal 1.6-2.4 [facility] Comment on above: Performed By: #### M G, ADIFF, ANEU, CBC, GFR, CMP ####[address] [address] .Auto Diffon 08-23-2024 Basophil, Absolute 0.1 10 3/mcL Normal 0.0-0.3 [facility] Comment on above: Performed By: #### A DIFF, CMP, MG, ANEU, CBC, GFR ####[place] [address] Basophils/100 WBC (Bld) 0.7 % Normal 0.0-2.5 [facility] Comment on above: Performed By: #### A DIFF, CMP, MG, ANEU, CBC, GFR ####[place] [address] Eosinophil, Absolute 0.7 10 3/mcL Normal 0.0-0.7 [facility] Comment on above: Performed By: #### A DIFF, CMP, MG, ANEU, CBC, GFR ####[place] [address] Eosinophils/100 WBC (Bld) 6.6 % High 0.0-6.0 [facility] Comment on above: Performed By: #### A DIFF, CMP, MG, ANEU, CBC, GFR ####[place] [address] Lymphocyte, Absolute 2.1 10 3/mcL Normal 0.9-4.3 [facility] Comment on above: Performed By: #### A DIFF, CMP, MG, ANEU, CBC, GFR ####[place] [address] Lymphocytes/100 WBC (Bld) 20.4 % Normal 20.0-40.0 [facility] Comment on above: Performed By: #### A DIFF, CMP, MG, ANEU, CBC, GFR ####[place] [address] Monocyte, Absolute 1.2 10 3/mcL Normal 0.1-1.4 [facility] Comment on above: Performed By: #### A DIFF, CMP, MG, ANEU, CBC, GFR ####[address] [address] Monocytes/100 WBC (Bld) 11.4 % Normal 2.0-13.0 [facility] MAIN Comment on above: Performed By: #### A DIFF, CMP, MG, ANEU, CBC, GFR ####[address] [address] Neutrophils/100 WBC (Bld) 60.9 % Normal 50.0-75.0 [facility] Comment on above: Performed By: #### A DIFF, CMP, MG, ANEU, CBC, GFR ####[address] [address] .GFRon 08-23-2024 Estimated Glomerular Filtration Rate 118 ml/min/1.73sqm [facility] MAIN Comment on above: Result Comment: [...] theeGFR results. Performed By: #### B MP, GFR, MG ####[address] [address] Estimated Glomerular Filtration Rate 114 ml/min/1.73sqm [facility] MAIN Comment on above: Result Comment: [...] theeGFR results. Performed By: #### A DIFF, CMP, MG, ANEU, CBC, GFR ####[place] [address] .NEUABSon 08-23-2024 Neutrophil, Absolute 6.2 10 3/mcL Normal 2.3-8.1 [facility] MAIN Comment on above: Performed By: #### A DIFF, CMP, MG, ANEU, CBC, GFR ####[place] [address] BMPon 08-23-2024 BUN/Creatinine Ratio 38.9 ratio High 10.0-22.0 [facility] MA[facility] Comment on above: Performed By: #### B MP, GFR, MG ####[place] [address] Calcium [Mass/Vol] 9.0 mg/dL Normal 8.7-10.4 [facility] MAIN Comment on above: Performed By: #### B MP, GFR, MG ####[place] [address] Chloride [Moles/Vol] 97 mmol/L Low 98-110 [facility] MAIN Comment on above: Performed By: #### B MP, GFR, MG ####[place] [address] CO2 [Moles/Vol] 36 mmol/L High 22-32 [facility] MA[facility] Comment on above: Performed By: #### B MP, GFR, MG ####[place] [address] Creatinine [Mass/Vol] 0.54 mg/dL Normal 0.50-1.20 [facility] Comment on above: Result Comment: Test ing performed on [employer] analyzer using enzymatic creatinine methodology. Performed By: #### B MP, GFR, MG ####[place] [address] Electrolyte Balance 10.0 mEq/L Normal 4.0-15.0 [facility] MAIN Comment on above: Performed By: #### B MP, GFR, MG ####[place] [address] Glucose [Mass/Vol] 83 mg/dL Normal 70-110 [facility] Comment on above: Performed By: #### B MP, GFR, MG ####[place] [address] Potassium [Moles/Vol] 4.8 mmol/L Normal 3.5-5.0 [facility] Comment on above: Performed By: #### B MP, GFR, MG ####[place] [address] Sodium [Moles/Vol] 143 mmol/L Normal 136-145 [facility] Comment on above: Performed By: #### B MP, GFR, MG ####[place] [address] Urea nitrogen [Mass/Vol] 21.0 mg/dL Normal 8.0-22.0 [facility] Comment on above: Performed By: #### B MP, GFR, MG ####[place] [address] CBCon 08-23-2024 Erythrocyte distribution width (RBC) [Ratio] 15.2 % Normal 11.5-15.5 [facility] Comment on above: Performed By: #### A DIFF, CMP, MG, ANEU, CBC, GFR ####[place] [address] Hematocrit (Bld) [Volume fraction] 34.5 % Normal 34.0-46.0 [facility] Comment on above: Performed By: #### A DIFF, CMP, MG, ANEU, CBC, GFR ####[place] [address] Hgb 11.1 G/dL Low 12.0-16.0 [facility] Comment on above: Performed By: #### A DIFF, CMP, MG, ANEU, CBC, GFR ####[address] [address] MCH (RBC) [Entitic mass] 31.0 pg Normal 27.0-33.0 [facility] Comment on above: Performed By: #### A DIFF, CMP, MG, ANEU, CBC, GFR ####[place] [address] MCHC 32.2 G/dL Normal 32.0-36.0 [facility] Comment on above: Performed By: #### A DIFF, CMP, MG, ANEU, CBC, GFR ####[place] [address] MCV (RBC) [Entitic vol] 96.3 fL Normal 80.0-99.0 [facility] Comment on above: Performed By: #### A DIFF, CMP, MG, ANEU, CBC, GFR ####[place] [address] Platelet 188 10 3/mcL Normal 150-450 [facility] Comment on above: Performed By: #### A DIFF, CMP, MG, ANEU, CBC, GFR ####[place] [address] Platelet mean volume (Bld) [Entitic vol] 9.4 fL Normal 6.6-10.5 [facility] Comment on above: Performed By: #### A DIFF, CMP, MG, ANEU, CBC, GFR ####[place] [address] RBC 3.58 10 6/mcL Low 4.10-5.30 [facility] Comment on above: Performed By: #### A DIFF, CMP, MG, ANEU, CBC, GFR ####[place] [address] WBC 10.3 10 3/mcL Normal 4.5-10.8 [facility] Comment on above: Performed By: #### A DIFF, CMP, MG, ANEU, CBC, GFR ####[place] [address] CMPon 08-23-2024 Chloride [Moles/Vol] 99 mmol/L Normal 98-110 [facility] Comment on above: Performed By: #### A DIFF, CMP, MG, ANEU, CBC, GFR ####[address] [address] Electrolyte Balance 7.0 mEq/L Normal 4.0-15.0 [facility] Comment on above: Performed By: #### A DIFF, CMP, MG, ANEU, CBC, GFR ####[address] [address] Potassium [Moles/Vol] 3.8 mmol/L Normal 3.5-5.0 [facility] Comment on above: Performed By: #### A DIFF, CMP, MG, ANEU, CBC, GFR ####[address] [address] Sodium [Moles/Vol] 140 mmol/L Normal 136-145 [facility] Comment on above: Performed By: #### A DIFF, CMP, MG, ANEU, CBC, GFR ####[place] [address] Albumin Level 3.4 G/dL Normal 3.2-4.8 [facility] Comment on above: Performed By: #### A DIFF, CMP, MG, ANEU, CBC, GFR ####[place] [id number] Albumin/Globulin [Mass ratio] 1.0 {ratio} Normal 0.9-1.6 [facility] Comment on above: Performed By: #### A DIFF, CMP, MG, ANEU, CBC, GFR ####[address] [address] ALP [Catalytic activity/Vol] 129 U/L High 38-126 [facility] Comment on above: Performed By: #### A DIFF, CMP, MG, ANEU, CBC, GFR ####[address] [address] ALT [Catalytic activity/Vol] 14 U/L Normal 10-49 [facility] Comment on above: Performed By: #### A DIFF, CMP, MG, ANEU, CBC, GFR ####[address] [address] AST [Catalytic activity/Vol] 15 U/L Normal 8-34 [facility] Comment on above: Performed By: #### A DIFF, CMP, MG, ANEU, CBC, GFR ####[address] [address] Bili Total 0.40 mg/dL Normal 0.20-1.20 [facility] Comment on above: Result Comment: Use of this assay is not recommended for patients undergoing treatment with eltrombopag due to the potential for falsely elevated results. Performed By: #### A DIFF, CMP, MG, ANEU, CBC, GFR ####[address] [address] BUN/Creatinine Ratio 30.6 ratio High 10.0-22.0 [facility] Comment on above: Performed By: #### A DIFF, CMP, MG, ANEU, CBC, GFR ####[address] [address] Calcium [Mass/Vol] 9.5 mg/dL Normal 8.7-10.4 [facility] Comment on above: Performed By: #### A DIFF, CMP, MG, ANEU, CBC, GFR ####[address] [address] CO2 [Moles/Vol] 34 mmol/L High 22-32 [facility] Comment on above: Performed By: #### A DIFF, CMP, MG, ANEU, CBC, GFR ####[address] [address] Creatinine [Mass/Vol] 0.62 mg/dL Normal 0.50-1.20 [facility] Comment on above: Result Comment: Test ing performed on Backchat analyzer using enzymatic creatinine methodology. Performed By: #### A DIFF, CMP, MG, ANEU, CBC, GFR ####[address] [address] Globulin 3.5 G/dL Normal 2.5-4.2 [facility] Comment on above: Performed By: #### A DIFF, CMP, MG, ANEU, CBC, GFR ####[address] [address] Glucose [Mass/Vol] 82 mg/dL Normal 70-110 [facility] Comment on above: Performed By: #### A DIFF, CMP, MG, ANEU, CBC, GFR ####[address] [address] Total Protein 6.9 G/dL Normal 5.7-8.2 [facility] Comment on above: Performed By: #### A DIFF, CMP, MG, ANEU, CBC, GFR ####[address] [address] Urea nitrogen [Mass/Vol] 19.0 mg/dL Normal 8.0-22.0 [facility] Comment on above: Performed By: #### A DIFF, CMP, MG, ANEU, CBC, GFR ####[address] [address] MGon 08-23-2024 Magnesium [Mass/Vol] 2.1 mg/dL Normal 1.6-2.4 [facility] Comment on above: Performed By: #### B MP, GFR, MG ####[address] [address] Magnesium [Mass/Vol] 2.1 mg/dL Normal 1.6-2.4 [facility] Comment on above: Performed By: #### A DIFF, CMP, MG, ANEU, CBC, GFR ####[address] [address] NM PULMONARY PERFUSION W/ VE NT AEROSOLon 08-23-2024 NM PULMONARY PERFUSION W/ VENT AEROSOL Normal [facility] XR CHEST 2 VIEWSon XR CHEST 2 VIEWS Normal [facility] .Auto Diffon 08-22-2024 Basophil, Absolute 0.1 10 3/mcL Normal 0.0-0.3 [facility] Comment on above: Performed By: #### C MP, MG, ANEU, CBC, GFR, ADIFF ####[address] [address] Basophils/100 WBC (Bld) 0.7 % Normal 0.0-2.5 [facility] Comment on above: Performed By: #### C MP, MG, ANEU, CBC, GFR, ADIFF ####[address] [address] Eosinophil, Absolute 0.6 10 3/mcL Normal 0.0-0.7 [facility] Comment on above: Performed By: #### C MP, MG, ANEU, CBC, GFR, ADIFF ####[address] [address] Eosinophils/100 WBC (Bld) 5.3 % Normal 0.0-6.0 [facility] Comment on above: Performed By: #### C MP, MG, ANEU, CBC, GFR, ADIFF ####[address] [address] Lymphocyte, Absolute 2.0 10 3/mcL Normal 0.9-4.3 [facility] Comment on above: Performed By: #### C MP, MG, ANEU, CBC, GFR, ADIFF ####[address] [address] Lymphocytes/100 WBC (Bld) 17.7 % Low 20.0-40.0 [facility] Comment on above: Performed By: #### C MP, MG, ANEU, CBC, GFR, ADIFF ####[address] [address] Monocyte, Absolute 1.1 10 3/mcL Normal 0.1-1.4 [facility] Comment on above: Performed By: #### C MP, MG, ANEU, CBC, GFR, ADIFF ####[address] [address] Monocytes/100 WBC (Bld) 9.5 % Normal 2.0-13.0 [facility] Comment on above: Performed By: #### C MP, MG, ANEU, CBC, GFR, ADIFF ####[address] [address] Neutrophils/100 WBC (Bld) 66.8 % Normal 50.0-75.0 [facility] Comment on above: Performed By: #### C MP, MG, ANEU, CBC, GFR, ADIFF ####[address] [address] .GFRon 08-22-2024 Estimated Glomerular Filtration Rate 116 ml/min/1.73sqm Normal [facility] Comment on above: Result Comment: [...] Performed By: #### M G, BMP, GFR ####[place] [address] Estimated Glomerular Filtration Rate 118 ml/min/1.73sqm [facility] Comment on above: Result Comment: [...] theeGFR results. Performed By: #### C MP, MG, ANEU, CBC, GFR, ADIFF ####[address] [address] .NEUABSon 08-22-2024 Neutrophil, Absolute 7.4 10 3/mcL Normal 2.3-8.1 [facility] Comment on above: Performed By: #### C MP, MG, ANEU, CBC, GFR, ADIFF ####[place] [id number] BMPon 08-22-2024 BUN/Creatinine Ratio 33.3 ratio High 10.0-22.0 [facility] Comment on above: Performed By: #### Rah Mott, BMP, GFR ####[address] [address] Calcium [Mass/Vol] 9.5 mg/dL Normal 8.7-10.4 [facility] Comment on above: Performed By: #### Rah Mott, BMP, GFR ####[address] [address] Chloride [Moles/Vol] 95 mmol/L Low 98-110 [facility] Comment on above: Performed By: #### Rah oMtt, BMP, GFR ####[address] [address] CO2 [Moles/Vol] 34 mmol/L High 22-32 [facility] Comment on above: Performed By: #### Rah Mott BMP, GFR ####[address] [address] Creatinine [Mass/Vol] 0.57 mg/dL Normal 0.50-1.20 [facility] Comment on above: Result Comment: Test ing performed on Backchat analyzer using enzymatic creatinine methodology. Performed By: #### Rah Mott, BMP, GFR ####[address] [address] Electrolyte Balance 11.0 mEq/L Normal 4.0-15.0 [facility] Comment on above: Performed By: #### Rah Mott, BMP, GFR ####[address] [address] Glucose [Mass/Vol] 81 mg/dL Normal 70-110 [facility] Comment on above: Performed By: #### Rah Mott, BMP, GFR ####[address] [address] Potassium [Moles/Vol] 4.1 mmol/L Normal 3.5-5.0 [facility] Comment on above: Performed By: #### Rah Mott, BMP, GFR ####[address] [address] Sodium [Moles/Vol] 140 mmol/L Normal 136-145 [facility] Comment on above: Performed By: #### Rah Mott, BMP, GFR ####[place] [address] Urea nitrogen [Mass/Vol] 19.0 mg/dL Normal 8.0-22.0 [facility] Comment on above: Performed By: #### M G, BMP, GFR ####[place] [address] CBCon 08-22-2024 Erythrocyte distribution width (RBC) [Ratio] 14.7 % Normal 11.5-15.5 [facility] Comment on above: Performed By: #### C MP, MG, ANEU, CBC, GFR, ADIFF ####[place] [address] Hematocrit (Bld) [Volume fraction] 36.3 % Normal 34.0-46.0 [facility] Comment on above: Performed By: #### C MP, MG, ANEU, CBC, GFR, ADIFF ####[place] [address] Hgb 11.6 G/dL Low 12.0-16.0 [facility] Comment on above: Performed By: #### C MP, MG, ANEU, CBC, GFR, ADIFF ####[place] [address] MCH (RBC) [Entitic mass] 30.5 pg Normal 27.0-33.0 [facility] Comment on above: Performed By: #### C MP, MG, ANEU, CBC, GFR, ADIFF ####[place] [address] MCHC 32.0 G/dL Normal 32.0-36.0 [facility] Comment on above: Performed By: #### C MP, MG, ANEU, CBC, GFR, ADIFF ####[place] [address] MCV (RBC) [Entitic vol] 95.2 fL Normal 80.0-99.0 [facility] Comment on above: Performed By: #### C MP, MG, ANEU, CBC, GFR, ADIFF ####[place] [address] Platelet 215 10 3/mcL Normal 150-450 [facility] Comment on above: Performed By: #### C MP, MG, ANEU, CBC, GFR, ADIFF ####[place] [address] Platelet mean volume (Bld) [Entitic vol] 9.6 fL Normal 6.6-10.5 [facility] Comment on above: Performed By: #### C MP, MG, ANEU, CBC, GFR, ADIFF ####[address] [address] RBC 3.82 10 6/mcL Low 4.10-5.30 [facility] Comment on above: Performed By: #### C MP, MG, ANEU, CBC, GFR, ADIFF ####[address] [address] WBC 11.1 10 3/mcL High 4.5-10.8 [facility] Comment on above: Performed By: #### C MP, MG, ANEU, CBC, GFR, ADIFF ####[place] [address] CMPon 08-22-2024 Albumin Level 3.5 G/dL Normal 3.2-4.8 [facility] Comment on above: Performed By: #### C MP, MG, ANEU, CBC, GFR, ADIFF ####[place] [phone] Albumin/Globulin [Mass ratio] 0.9 {ratio} Normal 0.9-1.6 [facility] Comment on above: Performed By: #### C MP, MG, ANEU, CBC, GFR, ADIFF ####[address] [address] ALP [Catalytic activity/Vol] 143 U/L High 38-126 [facility] Comment on above: Performed By: #### C MP, MG, ANEU, CBC, GFR, ADIFF ####[address] [address] ALT [Catalytic activity/Vol] 19 U/L Normal 10-49 [facility] Comment on above: Performed By: #### C MP, MG, ANEU, CBC, GFR, ADIFF ####[address] [address] AST [Catalytic activity/Vol] 19 U/L Normal 8-34 [facility] Comment on above: Performed By: #### C MP, MG, ANEU, CBC, GFR, ADIFF ####[place] [address] Bili Total 0.40 mg/dL Normal 0.20-1.20 [facility] Comment on above: Result Comment: Use of this assay is not recommended for patients undergoing treatment with eltrombopag due to the potential for falsely elevated results. Performed By: #### C MP, MG, ANEU, CBC, GFR, ADIFF ####[place] [address] BUN/Creatinine Ratio 37.7 ratio High 10.0-22.0 [facility] Comment on above: Performed By: #### C MP, MG, ANEU, CBC, GFR, ADIFF ####[place] [address] Calcium [Mass/Vol] 9.2 mg/dL Normal 8.7-10.4 [facility] Comment on above: Performed By: #### C MP, MG, ANEU, CBC, GFR, ADIFF ####[address] [address] Chloride [Moles/Vol] 97 mmol/L Low 98-110 [facility] Comment on above: Performed By: #### C MP, MG, ANEU, CBC, GFR, ADIFF ####[place] [address] CO2 [Moles/Vol] 36 mmol/L High 22-32 [facility] Comment on above: Performed By: #### C MP, MG, ANEU, CBC, GFR, ADIFF ####[place] [phone] Creatinine [Mass/Vol] 0.53 mg/dL Normal 0.50-1.20 [facility] Comment on above: Result Comment: Test ing performed on Backchat analyzer using enzymatic creatinine methodology. Performed By: #### C MP, MG, ANEU, CBC, GFR, ADIFF ####[address] [address] Electrolyte Balance 10.0 mEq/L Normal 4.0-15.0 [facility] Comment on above: Performed By: #### C MP, MG, ANEU, CBC, GFR, ADIFF ####[address] [address] Globulin 3.8 G/dL Normal 2.5-4.2 [facility] Comment on above: Performed By: #### C MP, MG, ANEU, CBC, GFR, ADIFF ####[place] [address] Glucose [Mass/Vol] 67 mg/dL Low 70-110 [facility] Comment on above: Performed By: #### C MP, MG, ANEU, CBC, GFR, ADIFF ####[place] [phone] Potassium [Moles/Vol] 3.8 mmol/L Normal 3.5-5.0 [facility] Comment on above: Performed By: #### C MP, MG, ANEU, CBC, GFR, ADIFF ####[place] [address] Sodium [Moles/Vol] 143 mmol/L Normal 136-145 [facility] Comment on above: Performed By: #### C MP, MG, ANEU, CBC, GFR, ADIFF ####[place] [address] Total Protein 7.3 G/dL Normal 5.7-8.2 [facility] Comment on above: Performed By: #### C MP, MG, ANEU, CBC, GFR, ADIFF ####[place] [phone] Urea nitrogen [Mass/Vol] 20.0 mg/dL Normal 8.0-22.0 [facility] Comment on above: Performed By: #### C MP, MG, ANEU, CBC, GFR, ADIFF ####[place] [address] CT THORAX W/O CONTRASTon 06- 15-2025 CT THORAX W/O CONTRAST Normal [facility] MGon 08-22-2024 Magnesium [Mass/Vol] 2.1 mg/dL Normal 1.6-2.4 [facility] Comment on above: Performed By: #### M G, BMP, GFR ####[address] [address] Magnesium [Mass/Vol] 2.0 mg/dL Normal 1.6-2.4 [facility] Comment on above: Performed By: #### C MP, MG, ANEU, CBC, GFR, ADIFF ####[address] [address] .Auto Diffon 08-21-2024 Basophil, Absolute 0.1 10 3/mcL Normal 0.0-0.3 [facility] Comment on above: Performed By: #### A DIFF, ANEU, CMP, GFR, CBC, MG, LIPID ####[address] [address] Basophils/100 WBC (Bld) 0.5 % Normal 0.0-2.5 [facility] Comment on above: Performed By: #### A DIFF, ANEU, CMP, GFR, CBC, MG, LIPID ####[address] [address] Eosinophil, Absolute 0.5 10 3/mcL Normal 0.0-0.7 [facility] Comment on above: Performed By: #### A DIFF, ANEU, CMP, GFR, CBC, MG, LIPID ####[address] [address] Eosinophils/100 WBC (Bld) 5.1 % Normal 0.0-6.0 [facility] Comment on above: Performed By: #### A DIFF, ANEU, CMP, GFR, CBC, MG, LIPID ####[address] [address] Lymphocyte, Absolute 1.6 10 3/mcL Normal 0.9-4.3 [facility] Comment on above: Performed By: #### A DIFF, ANEU, CMP, GFR, CBC, MG, LIPID ####[address] [address] Lymphocytes/100 WBC (Bld) 15.9 % Low 20.0-40.0 [facility] Comment on above: Performed By: #### A DIFF, ANEU, CMP, GFR, CBC, MG, LIPID ####[place] [id number] [address] [place] [address] Monocyte, Absolute 1.0 10 3/mcL Normal 0.1-1.4 [facility] Comment on above: Performed By: #### A DIFF, ANEU, CMP, GFR, CBC, MG, LIPID ####[address] [address] Monocytes/100 WBC (Bld) 9.8 % Normal 2.0-13.0 [facility] Comment on above: Performed By: #### A DIFF, ANEU, CMP, GFR, CBC, MG, LIPID ####[address] [address] Neutrophils/100 WBC (Bld) 68.7 % Normal 50.0-75.0 [facility] Comment on above: Performed By: #### A DIFF, ANEU, CMP, GFR, CBC, MG, LIPID ####[address] [address] .GFRon 08-21-2024 GFR/1.73 sq M.predicted among non-blacks MDRD (S/P/Bld) [Vol rate/Area] mL/min/{1.73_m2} Normal [facility] Comment on above: Result Comment: [...] Performed By: #### G FR, BMP, MG ####[address] [address] Estimated Glomerular Filtration Rate 118 ml/min/1.73sqm Normal [facility] Comment on above: Result Comment: [...] results. Performed By: #### A DIFF, ANEU, CMP, GFR, CBC, MG, LIPID ####[place] [address] .NEUABSon 08-21-2024 Neutrophil, Absolute 7.0 10 3/mcL Normal 2.3-8.1 [facility] Comment on above: Performed By: #### A DIFF, ANEU, CMP, GFR, CBC, MG, LIPID ####[place] [address] BMPon 08-21-2024 BUN/Creatinine Ratio 38.8 ratio High 10.0-22.0 [facility] Comment on above: Performed By: #### G FR, BMP, MG ####[place] [address] Calcium [Mass/Vol] 9.7 mg/dL Normal 8.7-10.4 [facility] Comment on above: Performed By: #### G FR, BMP, MG ####[place] [address] Chloride [Moles/Vol] 96 mmol/L Low 98-110 [facility] Comment on above: Performed By: #### G FR, BMP, MG ####[place] [address] CO2 [Moles/Vol] 34 mmol/L High 22-32 [facility] Comment on above: Performed By: #### G FR, BMP, MG ####[place] [address] Creatinine [Mass/Vol] 0.49 mg/dL Low 0.50-1.20 [facility] Comment on above: Result Comment: Test ing performed on Backchat analyzer using enzymatic creatinine methodology. Performed By: #### G FR, BMP, MG ####[place] [address] Electrolyte Balance 9.0 mEq/L Normal 4.0-15.0 [facility] Comment on above: Performed By: #### G FR, BMP, MG ####[place] [address] Glucose [Mass/Vol] 97 mg/dL Normal 70-110 [facility] Comment on above: Performed By: #### G FR, BMP, MG ####[place] [address] Potassium [Moles/Vol] 4.1 mmol/L Normal 3.5-5.0 [facility] Comment on above: Performed By: #### G FR, BMP, MG ####[place] [address] Sodium [Moles/Vol] 139 mmol/L Normal 136-145 [facility] Comment on above: Performed By: #### G FR, BMP, MG ####[place] [address] Urea nitrogen [Mass/Vol] 19.0 mg/dL Normal 8.0-22.0 [facility] Comment on above: Performed By: #### G FR, BMP, MG ####[place] [address] CBCon 08-21-2024 Erythrocyte distribution width (RBC) [Ratio] 14.9 % Normal 11.5-15.5 [facility] Comment on above: Performed By: #### A DIFF, ANEU, CMP, GFR, CBC, MG, LIPID ####[place] [address] Hematocrit (Bld) [Volume fraction] 35.5 % Normal 34.0-46.0 [facility] Comment on above: Performed By: #### A DIFF, ANEU, CMP, GFR, CBC, MG, LIPID ####[place] [address] Hgb 11.4 G/dL Low 12.0-16.0 [facility] Comment on above: Performed By: #### A DIFF, ANEU, CMP, GFR, CBC, MG, LIPID ####[place] [address] MCH (RBC) [Entitic mass] 31.0 pg Normal 27.0-33.0 [facility] Comment on above: Performed By: #### A DIFF, ANEU, CMP, GFR, CBC, MG, LIPID ####[place] [address] MCHC 32.2 G/dL Normal 32.0-36.0 [facility] Comment on above: Performed By: #### A DIFF, ANEU, CMP, GFR, CBC, MG, LIPID ####[place] [address] MCV (RBC) [Entitic vol] 96.3 fL Normal 80.0-99.0 [facility] Comment on above: Performed By: #### A DIFF, ANEU, CMP, GFR, CBC, MG, LIPID ####[place] [address] Platelet 208 10 3/mcL Normal 150-450 [facility] Comment on above: Performed By: #### A DIFF, ANEU, CMP, GFR, CBC, MG, LIPID ####[place] [address] Platelet mean volume (Bld) [Entitic vol] 9.0 fL Normal 6.6-10.5 [facility] Comment on above: Performed By: #### A DIFF, ANEU, CMP, GFR, CBC, MG, LIPID ####[place] [address] RBC 3.69 10 6/mcL Low 4.10-5.30 [facility] Comment on above: Performed By: #### A DIFF, ANEU, CMP, GFR, CBC, MG, LIPID ####[place] [id number] WBC 10.1 10 3/mcL Normal 4.5-10.8 [facility] Comment on above: Performed By: #### A DIFF, ANEU, CMP, GFR, CBC, MG, LIPID ####[place] [id number] CMPon 08-21-2024 Albumin Level 3.5 G/dL Normal 3.2-4.8 [facility] Comment on above: Performed By: #### A DIFF, ANEU, CMP, GFR, CBC, MG, LIPID ####[place] [id number] Albumin/Globulin [Mass ratio] 0.9 {ratio} Normal 0.9-1.6 [facility] Comment on above: Performed By: #### A DIFF, ANEU, CMP, GFR, CBC, MG, LIPID ####[place] [id number] ALP [Catalytic activity/Vol] 143 U/L High 38-126 [facility] Comment on above: Performed By: #### A DIFF, ANEU, CMP, GFR, CBC, MG, LIPID ####[place] [id number] ALT [Catalytic activity/Vol] 17 U/L Normal 10-49 [facility] Comment on above: Performed By: #### A DIFF, ANEU, CMP, GFR, CBC, MG, LIPID ####[place] [id number] AST [Catalytic activity/Vol] 20 U/L Normal 8-34 [facility] Comment on above: Performed By: #### A DIFF, ANEU, CMP, GFR, CBC, MG, LIPID ####[place] [address] Bili Total 0.40 mg/dL Normal 0.20-1.20 [facility] Comment on above: Result Comment: Use of this assay is not recommended for patients undergoing treatment with eltrombopag due to the potential for falsely elevated results. Performed By: #### A DIFF, ANEU, CMP, GFR, CBC, MG, LIPID ####[place] [address] BUN/Creatinine Ratio 39.6 ratio High 10.0-22.0 [facility] Comment on above: Performed By: #### A DIFF, ANEU, CMP, GFR, CBC, MG, LIPID ####[place] [address] Calcium [Mass/Vol] 9.4 mg/dL Normal 8.7-10.4 [facility] Comment on above: Performed By: #### A DIFF, ANEU, CMP, GFR, CBC, MG, LIPID ####[place] [address] Chloride [Moles/Vol] 98 mmol/L Normal 98-110 [facility] Comment on above: Performed By: #### A DIFF, ANEU, CMP, GFR, CBC, MG, LIPID ####[place] [address] CO2 [Moles/Vol] 37 mmol/L High 22-32 [facility] Comment on above: Performed By: #### A DIFF, ANEU, CMP, GFR, CBC, MG, LIPID ####[place] [address] Creatinine [Mass/Vol] 0.53 mg/dL Normal 0.50-1.20 [facility] Comment on above: Result Comment: Test ing performed on Backchat analyzer using enzymatic creatinine methodology. Performed By: #### A DIFF, ANEU, CMP, GFR, CBC, MG, LIPID ####[place] [address] Electrolyte Balance 8.0 mEq/L Normal 4.0-15.0 [facility] Comment on above: Performed By: #### A DIFF, ANEU, CMP, GFR, CBC, MG, LIPID ####[place] [address] Globulin 3.7 G/dL Normal 2.5-4.2 [facility] Comment on above: Performed By: #### A DIFF, ANEU, CMP, GFR, CBC, MG, LIPID ####[place] [id number] Glucose [Mass/Vol] 85 mg/dL Normal 70-110 [facility] Comment on above: Performed By: #### A DIFF, ANEU, CMP, GFR, CBC, MG, LIPID ####[place] [address] Potassium [Moles/Vol] 4.1 mmol/L Normal 3.5-5.0 [facility] Comment on above: Performed By: #### A DIFF, ANEU, CMP, GFR, CBC, MG, LIPID ####[place] [address] Sodium [Moles/Vol] 143 mmol/L Normal 136-145 [facility] Comment on above: Performed By: #### A DIFF, ANEU, CMP, GFR, CBC, MG, LIPID ####[place] [address] Total Protein 7.2 G/dL Normal 5.7-8.2 [facility] Comment on above: Performed By: #### A DIFF, ANEU, CMP, GFR, CBC, MG, LIPID ####[place] [address] Urea nitrogen [Mass/Vol] 21.0 mg/dL Normal 8.0-22.0 [facility] Comment on above: Performed By: #### A DIFF, ANEU, CMP, GFR, CBC, MG, LIPID ####[place] [address] CVFLURVon 08-21-2024 FLU A PCR Negative Normal Negative [facility] Comment on above: Result Comment: [place] [id number] Performed By: #### C VFLURV ####[place] [address] FLU B PCR Negative Normal Negative [facility] Comment on above: Result Comment: [place] [id number] Performed By: #### C VFLURV ####[place] [address] RSV PCR Negative Normal Negative [facility] Comment on above: Result Comment: [place] [id number] Performed By: #### C VFLURV ####[place] [address] SARS-CoV-2 (COVID-19) RNA DOV+probe Ql (Unsp spec) Negative Normal Negative [facility] Comment on above: Result Comment: Note s [id number] from the Xpert Xpress SARS-CoV-2/Flu/RSV or Xpert Xpress SARS-CoV-2 only test should be correlated with the clinical history, epidemiological data, and other data available to the clinician evaluating the patient. Performance of the Xpert Xpress SARS-CoV-2/Flu/RSV or Xpert Xpress SARS-CoV-2 only test has only been established in nasopharyngeal swab specimens.Erroneous test results might occur from improper specimen collection; failure to follow the recommended sample collection, handling, and storage procedures; technical error; or sample mix-up.False negative results may occur if virus is present at levels below the analytical limit of detection.Viral nucleic acid may persist in vivo, independent of virus viability. Detection of analyte target(s) does not imply that the corresponding virus(es) are infectious or are the causative agents for clinical symptoms.Recent patient exposure to FluMist or other live attenuated influenza vaccines may cause inaccurate positive results.FDA Approved. Performed By: #### C VFLURV ####[place] [address] LABORATORYOrdered By: Max Matthews on 08-21-2024 Appearance (U) Clear (08/21/24 7:52 PM) Normal Clear AH Auto Urine SS Bilirubin Ql (U) Negative (08/21/24 7:52 PM) Normal Neg-Trace AH Auto Urine SS Color (U) Yellow (08/21/24 7:52 PM) Normal AH Auto Urine SS Glucose Test strip (U) [Mass/Vol] Negative Normal Negative AH Auto Urine SS Hemoglobin Auto test strip (U) [Mass/Vol] Small *ABN* (08/21/24 7:52 PM) Invalid Interpretation Code Neg-Trace AH Auto Urine SS Ketones Ql (U) Negative Normal Neg-Trace AH Auto Ur ine SS UA Leuk Est Negative (08/21/24 7:52 PM) Normal Negative AH Auto Urine SS UA Nitrite Negative (08/21/24 7:52 PM) Normal Negative AH Auto Urine SS UA pH 7.5 (08/21/24 7:52 PM) Normal 5.0 - 8.0 AH Auto Urine SS UA Protein Negative Normal Negative AH Auto Urine SS UA Spec Grav 1.010 (08/21/24 7:52 PM) Normal 1.006-1.029 AH Auto Urine SS UA Specimen Type Clean Catch (08/21/24 7:52 PM) Normal AH Auto Urine SS UA Urobilinogen 0.2 E.U./dL Normal 0.2-1.0 AH Auto Urine SS LABORATORYOrdered By: Parrish Hercules on 08-21-2024 Bacteria LM.HPF (Urine sed) [#/Area] Trace /HPF Invalid Interpretation Code Negative AH Auto Urine SS RBC.non-dysmorphic LM Ql (Urine sed) 0-2 /HPF Invalid Interpretation Code AH Auto Urine SS UA RBC Negative Normal 0-2 AH Auto Urine SS UA Squam Epithelial Rare /HPF Normal 0-20 AH Au to Urine SS WBC LM.HPF (Urine sed) [#/Area] Rare /HPF Normal 0-5 AH Auto Urine SS LABORATORYOrdered By: Shaunna Pritchard on 08-21-2024 FLUAV RNA DOV+probe Ql (Resp) Negative 13 (08/21/24 5:10 PM) Normal Negative AH Auto Viro/Sero SS Comment on above: Result Comment: [place] [id number] FLUBV RNA DOV+probe Ql (Resp) Negative 14 (08/21/24 5:10 PM) Normal Negative AH Auto Viro/Sero SS Comment on above: Result Comment: [place] [id number] RSV PCR Negative 15 (08/21/24 5:10 PM) Normal Negative AH Auto Viro/Sero SS Comment on above: Result Comment: Note s [id number] SARS-CoV-2 (COVID-19) RNA DOV+probe Ql (Resp) Negative 11, 12 (08/21/24 5:10 PM) Normal Negative AH Auto Viro/Sero SS Comment on above: Result Comment: Note s [id number] Interpretive Data: R esults from the Xpert Xpress SARS-CoV-2/Flu/RSV or Xpert Xpress SARS-CoV-2 only test should be correlated with the clinical history, epidemiological data, and other data available to the clinician evaluating the patient. Performance of the Xpert Xpress SARS-CoV-2/Flu/RSV or Xpert Xpress SARS-CoV-2 only test has only been established in nasopharyngeal swab specimens. Erroneous test results might occur from improper specimen collection; failure to follow the recommended sample collection, handling, and storage procedures; technical error; or sample mix-up.False negative results may occur if virus is present at levels below the analytical limit of detection. Viral nucleic acid may persist in vivo, independent of virus viability. Detection of analyte target(s) does not imply that the corresponding virus(es) are infectious or are the causative agents for clinical symptoms.Recent patient exposure to FluMist or other live attenuated influenza vaccines may cause inaccurate positive results. FDA Approved. LABORATORYOrdered By: Paige Ceja on 08-21-2024 Cholesterol [Mass/Vol] 145 mg/dL Normal 50 - 199 mg/dL [facility] Comment on above: Interpretive Data: C holesterol Reference Interval: Less than 200 Desirable 200-239 Borderline high risk 240 and above High risk Cholesterol in HDL [Mass/Vol] 64 mg/dL High 40 - 59 mg/dL [facility] SS Cholesterol in LDL [Mass/Vol] 71 mg/dL Normal 0 - 129 mg/dL [facility] Triglyceride [Mass/Vol] 52 mg/dL Normal 3 - 149 mg/dL [facility] LIPIDon 08-21-2024 Cholesterol [Mass/Vol] 145 mg/dL Normal 50-199 [facility] Comment on above: Result Comment: Chol esterol Reference Interval:Less than 200 [id number] Borderline high [id number] and above High risk Performed By: #### A DIFF, ANEU, CMP, GFR, CBC, MG, LIPID ####[address] [address] Cholesterol in HDL [Mass/Vol] 64 mg/dL High 40-59 [facility] Comment on above: Performed By: #### A DIFF, ANEU, CMP, GFR, CBC, MG, LIPID ####[place] [id number] [address] [place] [address] Cholesterol in LDL [Mass/Vol] 71 mg/dL Normal 0-129 [facility] Comment on above: Performed By: #### A DIFF, ANEU, CMP, GFR, CBC, MG, LIPID ####[place] [id number] [address] [place] [address] Triglyceride [Mass/Vol] 52 mg/dL Normal 3-149 [facility] Comment on above: Performed By: #### A DIFF, ANEU, CMP, GFR, CBC, MG, LIPID ####[place] [address] MGon 08-21-2024 Magnesium [Mass/Vol] 2.0 mg/dL Normal 1.6-2.4 [facility] Comment on above: Performed By: #### G FR, BMP, MG ####[place] [address] Magnesium [Mass/Vol] 2.2 mg/dL Normal 1.6-2.4 [facility] Comment on above: Performed By: #### A DIFF, ANEU, CMP, GFR, CBC, MG, LIPID ####[place] [address] UAon 08-21-2024 Color (U) Yellow Normal [facility] Comment on above: Performed By: #### U AMIC, UA ####[place] [address] Glucose (U) [Mass/Vol] Negative Normal Negative [facility] Comment on above: Performed By: #### U AMIC, UA ####[place] [address] Ketones Ql (U) Negative Normal Neg-Trace [facility] Comment on above: Performed By: #### U AMIC, UA ####[place] [address] UA Appear Clear Normal Clear [facility] Comment on above: Performed By: #### U AMIC, UA ####[place] [address] UA Blood Small Abnormal Neg-Trace [facility] Comment on above: Performed By: #### U AMIC, UA ####[place] [address] UA Leuk Est Negative Normal Negative [facility] Comment on above: Performed By: #### U AMIC, UA ####[place] [address] UA Nitrite Negative Normal Negative [facility] Comment on above: Performed By: #### U AMIC, UA ####[place] [address] UA pH 7.5 Normal 5.0 - 8.0 [facility] Comment on above: Performed By: #### U AMIC, UA ####[place] [address] UA Protein Negative Normal Negative [facility] Comment on above: Performed By: #### U AMIC, UA ####[place] [address] UA Spec Grav 1.010 Normal 1.006-1.029 [facility] Comment on above: Performed By: #### U AMIC, UA ####[place] [address] UA Specimen Type Clean Catch Normal [facility] Comment on above: Performed By: #### U AMIC, UA ####[place] [address] UA Urobilinogen 0.2 E.U./dL Normal 0.2-1.0 [facility] Comment on above: Performed By: #### U AMIC, UA ####[place] [address] Urobilinogen (U) [Mass/Vol] Negative Normal Neg-Trace [facility] Comment on above: Performed By: #### U AMIC, UA ####[place] [address] UAMICon 08-21-2024 UA Bacteria Trace Abnormal Negative [facility] Comment on above: Performed By: #### U AMIC, UA ####[place] [address] UA Crenated RBCs 0-2 Abnormal [facility] Comment on above: Performed By: #### U AMIC, UA ####[place] [address] UA RBC Negative Normal 0-2 [facility] Comment on above: Performed By: #### U AMIC, UA ####[place] [address] UA Squam Epithelial Rare Normal 0-20 [facility] Comment on above: Performed By: #### U AMIC, UA ####[address] [address] UA WBC Rare Normal 0-5 [facility] Comment on above: Performed By: #### U AMIC, UA ####[address] [address] .Auto Diffon 08-20-2024 Basophil, Absolute 0.1 10 3/mcL Normal 0.0-0.3 [facility] Comment on above: Performed By: #### A DIFF, CMP, CBC, PBNP, CAION, GFR, TSH, ANEU, MG, PHOS ####[address] [address] Basophils/100 WBC (Bld) 1.1 % Normal 0.0-2.5 [facility] Comment on above: Performed By: #### A DIFF, CMP, CBC, PBNP, CAION, GFR, TSH, ANEU, MG, PHOS ####[place] [id number] Eosinophil, Absolute 0.6 10 3/mcL Normal 0.0-0.7 [facility] Comment on above: Performed By: #### A DIFF, CMP, CBC, PBNP, CAION, GFR, TSH, ANEU, MG, PHOS ####[address] [address] Eosinophils/100 WBC (Bld) 5.5 % Normal 0.0-6.0 [facility] Comment on above: Performed By: #### A DIFF, CMP, CBC, PBNP, CAION, GFR, TSH, ANEU, MG, PHOS ####[address] [address] Lymphocyte, Absolute 2.1 10 3/mcL Normal 0.9-4.3 [facility] Comment on above: Performed By: #### A DIFF, CMP, CBC, PBNP, CAION, GFR, TSH, ANEU, MG, PHOS ####[address] [address] Lymphocytes/100 WBC (Bld) 18.8 % Low 20.0-40.0 [facility] Comment on above: Performed By: #### A DIFF, CMP, CBC, PBNP, CAION, GFR, TSH, ANEU, MG, PHOS ####[address] [address] Monocyte, Absolute 1.3 10 3/mcL Normal 0.1-1.4 [facility] Comment on above: Performed By: #### A DIFF, CMP, CBC, PBNP, CAION, GFR, TSH, ANEU, MG, PHOS ####[place] [id number] [address] [place] [address] Monocytes/100 WBC (Bld) 11.2 % Normal 2.0-13.0 [facility] Comment on above: Performed By: #### A DIFF, CMP, CBC, PBNP, CAION, GFR, TSH, ANEU, MG, PHOS ####[address] [address] Neutrophils/100 WBC (Bld) 63.4 % Normal 50.0-75.0 [facility] Comment on above: Performed By: #### A DIFF, CMP, CBC, PBNP, CAION, GFR, TSH, ANEU, MG, PHOS ####[address] [address] .GFRon 08-20-2024 GFR/1.73 sq M.predicted among non-blacks MDRD (S/P/Bld) [Vol rate/Area] mL/min/{1.73_m2} Normal [facility] Comment on above: Result Comment: [...] theeGFR results. Performed By: #### A DIFF, CMP, CBC, PBNP, CAION, GFR, TSH, ANEU, MG, PHOS ####[place] [address] .NEUABSon 08-20-2024 Neutrophil, Absolute 7.1 10 3/mcL Normal 2.3-8.1 [facility] Comment on above: Performed By: #### A DIFF, CMP, CBC, PBNP, CAION, GFR, TSH, ANEU, MG, PHOS ####[place] [address] CAIONon 08-20-2024 Calcium Ionized 1.01 mmol/L Low 1.12-1.32 [facility] Comment on above: Performed By: #### A DIFF, CMP, CBC, PBNP, CAION, GFR, TSH, ANEU, MG, PHOS ####[place] [address] CBCon 08-20-2024 Erythrocyte distribution width (RBC) [Ratio] 14.8 % Normal 11.5-15.5 [facility] Comment on above: Performed By: #### A DIFF, CMP, CBC, PBNP, CAION, GFR, TSH, ANEU, MG, PHOS ####[place] [address] Hematocrit (Bld) [Volume fraction] 35.8 % Normal 34.0-46.0 [facility] Comment on above: Performed By: #### A DIFF, CMP, CBC, PBNP, CAION, GFR, TSH, ANEU, MG, PHOS ####[place] [address] Hgb 11.6 G/dL Low 12.0-16.0 [facility] Comment on above: Performed By: #### A DIFF, CMP, CBC, PBNP, CAION, GFR, TSH, ANEU, MG, PHOS ####[place] [address] MCH (RBC) [Entitic mass] 31.1 pg Normal 27.0-33.0 [facility] Comment on above: Performed By: #### A DIFF, CMP, CBC, PBNP, CAION, GFR, TSH, ANEU, MG, PHOS ####[place] [address] MCHC 32.5 G/dL Normal 32.0-36.0 [facility] Comment on above: Performed By: #### A DIFF, CMP, CBC, PBNP, CAION, GFR, TSH, ANEU, MG, PHOS ####[place] [address] MCV (RBC) [Entitic vol] 95.7 fL Normal 80.0-99.0 [facility] Comment on above: Performed By: #### A DIFF, CMP, CBC, PBNP, CAION, GFR, TSH, ANEU, MG, PHOS ####[place] [address] Platelet 206 10 3/mcL Normal 150-450 [facility] Comment on above: Performed By: #### A DIFF, CMP, CBC, PBNP, CAION, GFR, TSH, ANEU, MG, PHOS ####[place] [address] Platelet mean volume (Bld) [Entitic vol] 8.6 fL Normal 6.6-10.5 [facility] Comment on above: Performed By: #### A DIFF, CMP, CBC, PBNP, CAION, GFR, TSH, ANEU, MG, PHOS ####[place] [address] RBC 3.74 10 6/mcL Low 4.10-5.30 [facility] Comment on above: Performed By: #### A DIFF, CMP, CBC, PBNP, CAION, GFR, TSH, ANEU, MG, PHOS ####[place] [address] WBC 11.2 10 3/mcL High 4.5-10.8 [facility] Comment on above: Performed By: #### A DIFF, CMP, CBC, PBNP, CAION, GFR, TSH, ANEU, MG, PHOS ####[place] [address] CMPon 08-20-2024 Albumin Level 3.5 G/dL Normal 3.2-4.8 [facility] Comment on above: Performed By: #### A DIFF, CMP, CBC, PBNP, CAION, GFR, TSH, ANEU, MG, PHOS ####[place] [address] Albumin/Globulin [Mass ratio] 0.9 {ratio} Normal 0.9-1.6 [facility] Comment on above: Performed By: #### A DIFF, CMP, CBC, PBNP, CAION, GFR, TSH, ANEU, MG, PHOS ####[place] [address] ALP [Catalytic activity/Vol] 150 U/L High 38-126 [facility] Comment on above: Performed By: #### A DIFF, CMP, CBC, PBNP, CAION, GFR, TSH, ANEU, MG, PHOS ####[place] [address] ALT [Catalytic activity/Vol] 27 U/L Normal 10-49 [facility] Comment on above: Performed By: #### A DIFF, CMP, CBC, PBNP, CAION, GFR, TSH, ANEU, MG, PHOS ####[address] [address] AST [Catalytic activity/Vol] 19 U/L Normal 8-34 [facility] Comment on above: Performed By: #### A DIFF, CMP, CBC, PBNP, CAION, GFR, TSH, ANEU, MG, PHOS ####[place] [phone] Bili Total 0.30 mg/dL Normal 0.20-1.20 [facility] Comment on above: Result Comment: Use of this assay is not recommended for patients undergoing treatment with eltrombopag due to the potential for falsely elevated results. Performed By: #### A DIFF, CMP, CBC, PBNP, CAION, GFR, TSH, ANEU, MG, PHOS ####[place] [address] BUN/Creatinine Ratio 38.8 ratio High 10.0-22.0 [facility] Comment on above: Performed By: #### A DIFF, CMP, CBC, PBNP, CAION, GFR, TSH, ANEU, MG, PHOS ####[address] [address] Calcium [Mass/Vol] 9.5 mg/dL Normal 8.7-10.4 [facility] Comment on above: Performed By: #### A DIFF, CMP, CBC, PBNP, CAION, GFR, TSH, ANEU, MG, PHOS ####[place] [phone] Chloride [Moles/Vol] 95 mmol/L Low 98-110 [facility] Comment on above: Performed By: #### A DIFF, CMP, CBC, PBNP, CAION, GFR, TSH, ANEU, MG, PHOS ####[place] [phone] CO2 [Moles/Vol] 39 mmol/L High 22-32 [facility] Comment on above: Performed By: #### A DIFF, CMP, CBC, PBNP, CAION, GFR, TSH, ANEU, MG, PHOS ####[place] [address] Creatinine [Mass/Vol] 0.49 mg/dL Low 0.50-1.20 [facility] Comment on above: Result Comment: Test ing performed on Backchat analyzer using enzymatic creatinine methodology. Performed By: #### A DIFF, CMP, CBC, PBNP, CAION, GFR, TSH, ANEU, MG, PHOS ####[place] [address] Electrolyte Balance 6.0 mEq/L Normal 4.0-15.0 [facility] Comment on above: Performed By: #### A DIFF, CMP, CBC, PBNP, CAION, GFR, TSH, ANEU, MG, PHOS ####[place] [phone] Globulin 3.9 G/dL Normal 2.5-4.2 [facility] Comment on above: Performed By: #### A DIFF, CMP, CBC, PBNP, CAION, GFR, TSH, ANEU, MG, PHOS ####[place] [address] Glucose [Mass/Vol] 82 mg/dL Normal 70-110 [facility] Comment on above: Performed By: #### A DIFF, CMP, CBC, PBNP, CAION, GFR, TSH, ANEU, MG, PHOS ####[address] [address] Potassium [Moles/Vol] 4.1 mmol/L Normal 3.5-5.0 [facility] Comment on above: Performed By: #### A DIFF, CMP, CBC, PBNP, CAION, GFR, TSH, ANEU, MG, PHOS ####[address] [address] Sodium [Moles/Vol] 140 mmol/L Normal 136-145 [facility] Comment on above: Performed By: #### A DIFF, CMP, CBC, PBNP, CAION, GFR, TSH, ANEU, MG, PHOS ####[place] [address] Total Protein 7.4 G/dL Normal 5.7-8.2 [facility] Comment on above: Performed By: #### A DIFF, CMP, CBC, PBNP, CAION, GFR, TSH, ANEU, MG, PHOS ####[place] [address] Urea nitrogen [Mass/Vol] 19.0 mg/dL Normal 8.0-22.0 [facility] Comment on above: Performed By: #### A DIFF, CMP, CBC, PBNP, CAION, GFR, TSH, ANEU, MG, PHOS ####[place] [address] LABORATORYOrdered By: Nasra Manzano on 08-20-2024 Calcium Ionized 1.01 mmol/L Low 1.12 - 1.32 mmol/L AH Main Rapid Comm SS LABORATORYOrdered By: SYSTEM SYSTEM on 08-20-2024 Natriuretic peptide.B prohormone N-Terminal IA [Mass/Vol] 153 pg/mL Normal 0 - 450 pg/mL AH ADM SS Phosphate [Mass/Vol] 4.5 mg/dL Normal 2.4 - 5 .1 mg/dL AH ADM SS TSH Qn 5.438 mIU/mL High 0.550 - 4.780 mIU/mL AH ADM SS MGon 08-20-2024 Magnesium [Mass/Vol] 2.1 mg/dL Normal 1.6-2.4 [facility] Comment on above: Performed By: #### A DIFF, CMP, CBC, PBNP, CAION, GFR, TSH, ANEU, MG, PHOS ####[address] [address] PBNPon 08-20-2024 Natriuretic peptide B (Bld) [Mass/Vol] 153 pg/mL Normal 0-450 [facility] Comment on above: Performed By: #### A DIFF, CMP, CBC, PBNP, CAION, GFR, TSH, ANEU, MG, PHOS ####[place] [address] PHOSon 08-20-2024 Phosphate [Mass/Vol] 4.5 mg/dL Normal 2.4-5.1 [facility] Comment on above: Performed By: #### A DIFF, CMP, CBC, PBNP, CAION, GFR, TSH, ANEU, MG, PHOS ####[place] [address] TSHon 08-20-2024 TSH 5.438 mIU/mL High 0.550-4.780 [facility] Comment on above: Performed By: #### A DIFF, CMP, CBC, PBNP, CAION, GFR, TSH, ANEU, MG, PHOS ####[place] [address] XR CHEST 1 VIEWon 08-20-2024 XR CHEST 1 VIEW Normal [facility] Anion gap in Serum or Plasma Ordered By: Tia Morrison on 08-16-2024 Anion gap [Moles/Vol] 8 mmol/L 5-15 [facility] BUN/creatinine ratioOrdered By: Tia Morrison on 08-16-2024 Urea nitrogen/Creatinine [Mass ratio] 33.4 mg/mg High 12-27 [facility] Basic Metabolic Profile (BMP )on 08-16-2024 BUN/CRE 33.4 RATIO High 12-27 [facility] Comment on above: Order Comment: 202 Performed By: #### L 500.2500 ####[facility] [address] [place], [address] Calcium [Mass/Vol] 8.9 mg/dL Normal 7.6-11.0 [facility] Comment on above: Order Comment: 202 Performed By: #### L 500.2500 ####[facility] [address] [place], [address] Chloride [Moles/Vol] 98 mmol/L Normal 98-108 [facility] Comment on above: Order Comment: 202 Performed By: #### L 500.2500 ####[facility] [address] [place], [address] CO2 [Moles/Vol] 34.5 mmol/L High 21.0-32.0 [facility] Comment on above: Order Comment: 202 Performed By: #### L 500.2500 ####[facility] [address] [place], [address] Creatinine [Mass/Vol] 0.44 mg/dL Low 0.70-1.20 [facility] Comment on above: Order Comment: 202 Performed By: #### L 500.2500 ####[facility] [address] [place], [address] GAP 8 Normal 5-15 [facility] Comment on above: Order Comment: 202 Performed By: #### L 500.2500 ####[facility] [address] [place], [address] GFR/1.73 sq M.predicted among non-blacks MDRD (S/P/Bld) [Vol rate/Area] 124 mL/min/{1.73_m2} Normal >60 [facility] Comment on above: Order Comment: 202 Result Comment: mL/m in/1.73m2 CKD-EPI Creatinine Equation (2020) Performed By: #### L 500.2500 ####[facility] [address] [place], [address] Glucose [Mass/Vol] 77 mg/dL Normal 70-99 [facility] Comment on above: Order Comment: 202 Performed By: #### L 500.2500 ####[facility] [address] [place], [address] Potassium [Moles/Vol] 4.9 mmol/L Normal 3.3-5.1 [facility] Comment on above: Order Comment: 202 Result Comment: Hemo lysis present, Results??could be affected.?? Performed By: #### L 500.2500 ####[facility] [address] [place], [address] Sodium [Moles/Vol] 140 mmol/L Normal 133-145 [facility] Comment on above: Order Comment: 202 Performed By: #### L 500.2500 ####[facility] [address] [place], [address] Urea nitrogen [Mass/Vol] 15 mg/dL Normal 4-19 [facility] Comment on above: Order Comment: 202 Performed By: #### L 500.2500 ####[facility] [address] [place], [address] Carbon dioxide, total [Moles /volume] in Central venous bloodOrdered By: Tia Morrison on 08-16-2024 CO2 [Moles/Vol] 34.5 mmol/L High 21.0-32.0 [facility] Chloride assayOrdered By: Yvon Morrison on 08-16-2024 Chloride [Moles/Vol] 98 mmol/L 98-108 [facility] Glomerular filtration rate ( GFR) estimation/1.73 sq m using serum, plasma, or whole bOrdered By: Tia Morrison on 08-16-2024 GFR/1.73 sq M.predicted among non-blacks MDRD (S/P/Bld) [Vol rate/Area] 124 mL/min/{1.73_m2} >60 [facility] Comment on above: mL/min/1.73m2 CKD-EP I Creatinine Equation (2020) Potassium measurement (mass/ volume)Ordered By: Tia Morrison on 08-16-2024 Potassium (Unsp spec) [Mass/Vol] 4.9 mmol/L 3.3-5.1 [facility] Comment on above: Hemolysis present, R esults could be affected. Serum creatinine measurement (mass/volume)Ordered By: Tia Morrison on 08-16-2024 Creatinine [Mass/Vol] 0.44 mg/dL Low 0.70-1.20 [facility] Serum glucose measurement (m ass/volume)Ordered By: Tia Morrison on 08-16-2024 Glucose [Mass/Vol] 77 mg/dL 70-99 [facility] Serum or plasma calcium shasha urement (mass/volume)Ordered By: Tia Morrison on 08-16-2024 Calcium [Mass/Vol] 8.9 mg/dL 7.6-11.0 [facility] Serum or plasma urea nitroge n measurement (mass/volume)Ordered By: Tia Morrison on 08-16-2024 Urea nitrogen [Mass/Vol] 15 mg/dL 4-19 [facility] Sodium levelOrdered By: Tracy Morrison on 08-16-2024 Sodium [Moles/Vol] 140 mmol/L 133-145 [facility] Anion gap in Serum or Plasma Ordered By: Tia Morrison on 08-09-2024 Anion gap [Moles/Vol] 9 mmol/L 5-15 [facility] BUN/creatinine ratioOrdered By: Tia Morrison on 08-09-2024 Urea nitrogen/Creatinine [Mass ratio] 29.1 mg/mg High 10- [facility] Basic Metabolic Profile (BMP )on 08-09-2024 BUN/CRE 29.1 RATIO High - [facility] Comment on above: Order Comment: 202 Performed By: #### L 500.2500 ####[facility] [address] [place], [address] Calcium [Mass/Vol] 9.0 mg/dL Normal 7.6-11.0 [facility] Comment on above: Order Comment: 202 Performed By: #### L 500.2500 ####[facility] [address] [place], [address] Chloride [Moles/Vol] 94 mmol/L Low 98-108 [facility] Comment on above: Order Comment: 202 Performed By: #### L 500.2500 ####[facility] [address] [place], [address] CO2 [Moles/Vol] 35.4 mmol/L High 21.0-32.0 [facility] Comment on above: Order Comment: 202 Performed By: #### L 500.2500 ####[facility] [address] [place], [address] Creatinine [Mass/Vol] 0.46 mg/dL Low 0.70-1.20 [facility] Comment on above: Order Comment: 202 Performed By: #### L 500.2500 ####[facility] [address] [place], [address] GAP 9 Normal 5-15 [facility] Comment on above: Order Comment: 202 Performed By: #### L 500.2500 ####[facility] [address] [place], [address] GFR/1.73 sq M.predicted among non-blacks MDRD (S/P/Bld) [Vol rate/Area] 122 mL/min/{1.73_m2} Normal >60 [facility] Comment on above: Order Comment: 202 Result Comment: mL/m in/1.73m2 CKD-EPI Creatinine Equation (2020) Performed By: #### L 500.2500 ####[facility] [address] [place], [address] Glucose [Mass/Vol] 74 mg/dL Normal 70-99 [facility] Comment on above: Order Comment: 202 Performed By: #### L 500.2500 ####[facility] [address] [place], [place], [address] Potassium [Moles/Vol] 4.2 mmol/L Normal 3.3-5.1 [facility] Comment on above: Order Comment: 202 Performed By: #### L 500.2500 ####[facility] [address] [place], [place], [id number]) Sodium [Moles/Vol] 138 mmol/L Normal 133-145 [facility] Comment on above: Order Comment: 202 Performed By: #### L 500.2500 ####[facility] [address] [place], [address] Urea nitrogen [Mass/Vol] 14 mg/dL Normal 4-19 [facility] Comment on above: Order Comment: 202 Performed By: #### L 500.2500 ####[facility] [address] [place], [place], [id number] Carbon dioxide, total [Moles /volume] in Central venous bloodOrdered By: Tia Morrison on 08-09-2024 CO2 [Moles/Vol] 35.4 mmol/L High 21.0-32.0 [facility] Chloride assayOrdered By: Yvon Morrison on 08-09-2024 Chloride [Moles/Vol] 94 mmol/L Low 98-108 [facility] Glomerular filtration rate ( GFR) estimation/1.73 sq m using serum, plasma, or whole bOrdered By: Tia Morrison on 08-09-2024 GFR/1.73 sq M.predicted among non-blacks MDRD (S/P/Bld) [Vol rate/Area] 122 mL/min/{1.73_m2} >60 [facility] Comment on above: mL/min/1.73m2 CKD-EP I Creatinine Equation (2020) Potassium measurement (mass/ volume)Ordered By: Tia Morrison on 08-09-2024 Potassium (Unsp spec) [Mass/Vol] 4.2 mmol/L 3.3-5.1 [facility] Serum creatinine measurement (mass/volume)Ordered By: Tia Morrison on 08-09-2024 Creatinine [Mass/Vol] 0.46 mg/dL Low 0.70-1.20 [facility] Serum glucose measurement (m ass/volume)Ordered By: Tia Morrison on 08-09-2024 Glucose [Mass/Vol] 74 mg/dL 70-99 [facility] Serum or plasma calcium shasha urement (mass/volume)Ordered By: Tia Morrison on 08-09-2024 Calcium [Mass/Vol] 9.0 mg/dL 7.6-11.0 [facility] Serum or plasma urea nitroge n measurement (mass/volume)Ordered By: Tia Morrison on 08-09-2024 Urea nitrogen [Mass/Vol] 14 mg/dL 4-19 [facility] Sodium levelOrdered By: Tracy Morrison on 08-09-2024 Sodium [Moles/Vol] 138 mmol/L 133-145 [facility] Anion gap in Serum or Plasma Ordered By: Tia Morrison on 08-03-2024 Anion gap [Moles/Vol] 8 mmol/L 5-15 [facility] BUN/creatinine ratioOrdered By: Tia Morrison on 08-03-2024 Urea nitrogen/Creatinine [Mass ratio] 37.4 mg/mg High 10- [facility] Basic Metabolic Profile (BMP )on 08-03-2024 BUN/CRE 37.4 RATIO High 10- [facility] Comment on above: Order Comment: 202 Performed By: #### L 500.2500 ####[facility] [address] [place], [place], [address] Calcium [Mass/Vol] 8.8 mg/dL Normal 7.6-11.0 [facility] Comment on above: Order Comment: 202 Performed By: #### L 500.2500 ####[facility] [address] [place], [address] Chloride [Moles/Vol] 96 mmol/L Low 98-108 [facility] Comment on above: Order Comment: 202 Performed By: #### L 500.2500 ####[facility] [address] [place], [address] CO2 [Moles/Vol] 35.8 mmol/L High 21.0-32.0 [facility] Comment on above: Order Comment: 202 Performed By: #### L 500.2500 ####[facility] [address] [place], [address] Creatinine [Mass/Vol] 0.43 mg/dL Low 0.70-1.20 [facility] Comment on above: Order Comment: 202 Performed By: #### L 500.2500 ####[facility] [address] [place], [address] GAP 8 Normal 5-15 [facility] Comment on above: Order Comment: 202 Performed By: #### L 500.2500 ####[facility] [address] [place], [address] GFR/1.73 sq M.predicted among non-blacks MDRD (S/P/Bld) [Vol rate/Area] 124 mL/min/{1.73_m2} Normal >60 [facility] Comment on above: Order Comment: 202 Result Comment: mL/m in/1.73m2 CKD-EPI Creatinine Equation (2020) Performed By: #### L 500.2500 ####[facility] [address] [place], [address] Glucose [Mass/Vol] 85 mg/dL Normal 70-99 [facility] Comment on above: Order Comment: 202 Performed By: #### L 500.2500 ####[facility] [address] [place], [address] Potassium [Moles/Vol] 4.3 mmol/L Normal 3.3-5.1 [facility] Comment on above: Order Comment: 202 Performed By: #### L 500.2500 ####[facility] [address] [place], [address] Sodium [Moles/Vol] 140 mmol/L Normal 133-145 [facility] Comment on above: Order Comment: 202 Performed By: #### L 500.2500 ####[facility] [address] [place], [place], [address] Urea nitrogen [Mass/Vol] 16 mg/dL Normal 4-19 [facility] Comment on above: Order Comment: 202 Performed By: #### L 500.2500 ####[facility] [address] [place], [place], [address] Carbon dioxide, total [Moles /volume] in Central venous bloodOrdered By: Tia Morrison on 08-03-2024 CO2 [Moles/Vol] 35.8 mmol/L High 21.0-32.0 [facility] Chloride assayOrdered By: Yvon Morrison on 08-03-2024 Chloride [Moles/Vol] 96 mmol/L Low 98-108 [facility] Glomerular filtration rate ( GFR) estimation/1.73 sq m using serum, plasma, or whole bOrdered By: Tia Morrison on 08-03-2024 GFR/1.73 sq M.predicted among non-blacks MDRD (S/P/Bld) [Vol rate/Area] 124 mL/min/{1.73_m2} >60 [facility] Comment on above: mL/min/1.73m2 CKD-EP I Creatinine Equation (2020) Potassium measurement (mass/ volume)Ordered By: Tia Morrison on 08-03-2024 Potassium (Unsp spec) [Mass/Vol] 4.3 mmol/L 3.3-5.1 [facility] Serum creatinine measurement (mass/volume)Ordered By: Tia Morrison on 08-03-2024 Creatinine [Mass/Vol] 0.43 mg/dL Low 0.70-1.20 [facility] Serum glucose measurement (m ass/volume)Ordered By: Tia Morrison on 08-03-2024 Glucose [Mass/Vol] 85 mg/dL 70-99 [facility] Serum or plasma calcium shasha urement (mass/volume)Ordered By: Tia Morrison on 08-03-2024 Calcium [Mass/Vol] 8.8 mg/dL 7.6-11.0 [facility] Serum or plasma urea nitroge n measurement (mass/volume)Ordered By: Tia Morrison on 08-03-2024 Urea nitrogen [Mass/Vol] 16 mg/dL - [facility] Sodium levelOrdered By: Tracy Morrison on 08-03-2024 Sodium [Moles/Vol] 140 mmol/L 133-145 [facility] Anion gap in Serum or Plasma Ordered By: Tia Morrison on 07-26-2024 Anion gap [Moles/Vol] 8 mmol/L 5- [facility] BUN/creatinine ratioOrdered By: Tia Morrison on 07-26-2024 Urea nitrogen/Creatinine [Mass ratio] 34.5 mg/mg High 10-20 [facility] Bilirubin, totalOrdered By: Tia Morrison on 07-26-2024 Bilirubin [Mass/Vol] mg/dL 0.00-1.30 [facility] CBC-Complete Blood Cnt No Di ffon 07-26-2024 Erythrocyte distribution width (RBC) [Ratio] 14.0 % Normal 11.6-14.6 [facility] Comment on above: Order Comment: 202 Performed By: #### L 501.5200, L500.4050, L100.0500 ####[facility] [address] [place], [address] Hematocrit (Bld) [Volume fraction] 32.7 % Low 37-47 [facility] Comment on above: Order Comment: 202 Performed By: #### L 501.5200, L500.4050, L100.0500 ####[facility] [address] [place], [address] Hemoglobin (Bld) [Mass/Vol] 10.2 g/dL Low 12.0-15.0 [facility] Comment on above: Order Comment: 202 Performed By: #### L 501.5200, L500.4050, L100.0500 ####[facility] [address] [place], [address] MCH (RBC) [Entitic mass] 31.6 pg Normal 27.0-32.0 [facility] Comment on above: Order Comment: 202 Performed By: #### L 501.5200, L500.4050, L100.0500 ####[facility] [address] [place], [address] MCHC (RBC) [Mass/Vol] 31.2 g/dL Low 32-36 [facility] Comment on above: Order Comment: 202 Performed By: #### L 501.5200, L500.4050, L100.0500 ####[facility] [address] [place], [address] MCV (RBC) [Entitic vol] 101.2 fL High 81-99 [facility] Comment on above: Order Comment: 202 Performed By: #### L 501.5200, L500.4050, L100.0500 ####[facility] [address] [place], [address] Platelet mean volume (Bld) [Entitic vol] 10.9 fL Normal 6.2-12.0 [facility] Comment on above: Order Comment: 202 Performed By: #### L 501.5200, L500.4050, L100.0500 ####[facility] [address] [place], [address] Platelets (Bld) [#/Vol] 217 10*3/uL Normal 150-450 [facility] Comment on above: Order Comment: 202 Performed By: #### L 501.5200, L500.4050, L100.0500 ####[facility] [address] [place], [address] RBC (Bld) [#/Vol] 3.23 10*6/uL Low 4.2-5.4 [facility] Comment on above: Order Comment: 202 Performed By: #### L 501.5200, L500.4050, L100.0500 ####[facility] [address] [place], [address] RDW SD 52.0 fl High 35.1-43.9 [facility] Comment on above: Order Comment: 202 Performed By: #### L 501.5200, L500.4050, L100.0500 ####[facility] [address] [place], [address] WBC (Bld) [#/Vol] 9.8 10*3/uL Normal 4.4-11.0 [facility] Comment on above: Order Comment: 202 Performed By: #### L 501.5200, L500.4050, L100.0500 ####[facility] [address] [place], [address] Carbon dioxide, total [Moles /volume] in Central venous bloodOrdered By: Tia Morrison on 07-26-2024 CO2 [Moles/Vol] 32.4 mmol/L High 21.0-32.0 [facility] Chloride assayOrdered By: Yvon Morrison on 07-26-2024 Chloride [Moles/Vol] 100 mmol/L 98-108 [facility] Comprehensive Metabolic Prof ilon 07-26-2024 Albumin [Mass/Vol] 3.4 g/dL Low 3.5-5.0 [facility] Comment on above: Order Comment: 202 Performed By: #### L 501.5200, L500.4050, L100.0500 ####[facility] [address] [place], [address] Albumin/Globulin [Mass ratio] 1.1 {ratio} Normal 0.9-2.4 [facility] Comment on above: Order Comment: 202 Performed By: #### L 501.5200, L500.4050, L100.0500 ####[facility] [address] [place], [address] ALK PHOS 125 U/L High 35-104 [facility] Comment on above: Order Comment: 202 Performed By: #### L 501.5200, L500.4050, L100.0500 ####[facility] [address] [place], [address] ALT [Catalytic activity/Vol] 21 U/L Normal <=34 [facility] Comment on above: Order Comment: 202 Performed By: #### L 501.5200, L500.4050, L100.0500 ####[facility] [address] [place], [address] AST [Catalytic activity/Vol] 18 U/L Normal <=31 [facility] Comment on above: Order Comment: 202 Performed By: #### L 501.5200, L500.4050, L100.0500 ####[facility] [address] [place], [address] BUN/CRE 34.5 RATIO High 10-20 [facility] Comment on above: Order Comment: 202 Performed By: #### L 501.5200, L500.4050, L100.0500 ####[facility] [address] [place], [address] Calcium [Mass/Vol] 9.0 mg/dL Normal 7.6-11.0 [facility] Comment on above: Order Comment: 202 Performed By: #### L 501.5200, L500.4050, L100.0500 ####[facility] [address] [place], [address] Chloride [Moles/Vol] 100 mmol/L Normal 98-108 [facility] Comment on above: Order Comment: 202 Performed By: #### L 501.5200, L500.4050, L100.0500 ####[facility] [address] [place], [address] CO2 [Moles/Vol] 32.4 mmol/L High 21.0-32.0 [facility] Comment on above: Order Comment: 202 Performed By: #### L 501.5200, L500.4050, L100.0500 ####[facility] [address] [place], [address] Creatinine [Mass/Vol] 0.45 mg/dL Low 0.70-1.20 [facility] Comment on above: Order Comment: 202 Performed By: #### L 501.5200, L500.4050, L100.0500 ####[facility] [address] [place], [address] GAP 8 Normal 5-15 [facility] Comment on above: Order Comment: 202 Performed By: #### L 501.5200, L500.4050, L100.0500 ####[facility] [address] [place], [address] GFR/1.73 sq M.predicted among non-blacks MDRD (S/P/Bld) [Vol rate/Area] 123 mL/min/{1.73_m2} Normal >60 [facility] Comment on above: Order Comment: 202 Result Comment: mL/m in/1.73m2 CKD-EPI Creatinine Equation (2020) Performed By: #### L 501.5200, L500.4050, L100.0500 ####[facility] [address] [place], [address] Globulin (S) [Mass/Vol] 3.1 g/dL Normal 2.2-4.2 [facility] Comment on above: Order Comment: 202 Performed By: #### L 501.5200, L500.4050, L100.0500 ####[facility] [address] [place], [address] Glucose [Mass/Vol] 99 mg/dL Normal 70-99 [facility] Comment on above: Order Comment: 202 Performed By: #### L 501.5200, L500.4050, L100.0500 ####[facility] [address] [place], [address] Potassium [Moles/Vol] 4.3 mmol/L Normal 3.3-5.1 [facility] Comment on above: Order Comment: 202 Performed By: #### L 501.5200, L500.4050, L100.0500 ####[facility] [address] [place], [address] Sodium [Moles/Vol] 141 mmol/L Normal 133-145 [facility] Comment on above: Order Comment: 202 Performed By: #### L 501.5200, L500.4050, L100.0500 ####[facility] [address] [place], [address] T BILI < 0.15 Normal 0.00-1.30 [facility] Comment on above: Order Comment: 202 Performed By: #### L 501.5200, L500.4050, L100.0500 ####[facility] [address] [place], [address] T PROT 6.5 g/dL Normal 5.9-8.4 [facility] Comment on above: Order Comment: 202 Performed By: #### L 501.5200, L500.4050, L100.0500 ####[facility] [address] [place], [address] Urea nitrogen [Mass/Vol] 15 mg/dL Normal 4-19 [facility] Comment on above: Order Comment: 202 Performed By: #### L 501.5200, L500.4050, L100.0500 ####[facility] [address] [place], [address] Erythrocyte distribution wid th ratioOrdered By: Tia Morrison on 07-26-2024 Erythrocyte distribution width (RBC) [Ratio] 14.0 % 11.6-14.6 [facility] Erythrocyte distribution wid th standard deviationOrdered By: Tia Morrison on 07-26-2024 Erythrocyte distribution width (RBC) [Ratio] 52.0 fl High 35.1-43.9 [facility] Glomerular filtration rate ( GFR) estimation/1.73 sq m using serum, plasma, or whole bOrdered By: Tia Morrison on 07-26-2024 GFR/1.73 sq M.predicted among non-blacks MDRD (S/P/Bld) [Vol rate/Area] 123 mL/min/{1.73_m2} >60 [facility] Comment on above: mL/min/1.73m2 CKD-EP I Creatinine Equation (2020) Hematocrit Auto (Bld) [Volum e fraction]Ordered By: Tia Morrison on 07-26-2024 Hematocrit (Bld) [Volume fraction] 32.7 % Low 37-47 [facility] Hemoglobin measurementOrdere d By: Tia Morrison on 07-26-2024 Hemoglobin (Bld) [Mass/Vol] 10.2 g/dL Low 12.0-15.0 [facility] Laboratory - Chemistry and C hemistry - challengeOrdered By: Tia Morrison on 07-26-2024 AST [Catalytic activity/Vol] 18 U/L <32 [facility] MCV (mean corpuscular volume ) determinationOrdered By: Tia Morrison on 07-26-2024 MCV (RBC) [Entitic vol] 101.2 fL High 81-99 [facility] Magnesiumon 07-26-2024 Magnesium [Mass/Vol] 2.2 mg/dL Normal 1.5-2.2 [facility] Comment on above: Order Comment: 202 Performed By: #### L 501.2620, L500.4050, L100.0500 ####[facility] [address] [place], [address] Magnesium measurement (mass/ volume)Ordered By: Tia Morrison on 07-26-2024 Magnesium (Unsp spec) [Mass/Vol] 2.2 mg/dL 1.5-2.2 [facility] Mean corpuscular hemoglobin (MCH) determinationOrdered By: Tia Morrison on 07-26-2024 MCH (RBC) [Entitic mass] 31.6 pg 27.0-32.0 [facility] Mean corpuscular hemoglobin concentration (MCHC) determinationOrdered By: Tia Morrison on 07-26-2024 MCHC (RBC) [Mass/Vol] 31.2 g/dL Low 32-36 [facility] Mean platelet volume determi nationOrdered By: Tia Morrison on 07-26-2024 Platelet mean volume (Bld) [Entitic vol] 10.9 fL 6.2-12.0 [facility] Platelet countOrdered By: Yvon Morrison on 07-26-2024 Platelets (Bld) [#/Vol] 217 10*3/uL 150-450 [facility] Potassium measurement (mass/ volume)Ordered By: Tia Morrison on 07-26-2024 Potassium (Unsp spec) [Mass/Vol] 4.3 mmol/L 3.3-5.1 [facility] RBC Auto (Bld) [#/Vol]Ordere d By: Tia Morrison on 07-26-2024 RBC (Bld) [#/Vol] 3.23 10*6/uL Low 4.2-5.4 [facility] Serum creatinine measurement (mass/volume)Ordered By: Tia Morrison on 07-26-2024 Creatinine [Mass/Vol] 0.45 mg/dL Low 0.70-1.20 [facility] Serum globulin measurementOr dered By: Tia Morrison on 07-26-2024 Globulin (S) [Mass/Vol] 3.1 g/dL 2.2-4.2 [facility] Serum glucose measurement (m ass/volume)Ordered By: Tia Morrison on 07-26-2024 Glucose [Mass/Vol] 99 mg/dL 70-99 [facility] Serum or plasma alanine walden otransferase (ALT) measurementOrdered By: Tia Morrison on 07-26-2024 ALT [Catalytic activity/Vol] 21 U/L <35 [facility] Serum or plasma albumin shasha urement (mass/volume)Ordered By: Tia Morrison on 07-26-2024 Albumin [Mass/Vol] 3.4 g/dL Low 3.5-5.0 [facility] Serum or plasma albumin/glob ulin mass ratioOrdered By: Tia Morrison on 07-26-2024 Albumin/Globulin [Mass ratio] 1.1 {ratio} 0.9-2.4 [facility] Serum or plasma alkaline brennen sphatase measurementOrdered By: Tia Morrison on 07-26-2024 ALP [Catalytic activity/Vol] 125 U/L High 35-104 [facility] Serum or plasma calcium shasha urement (mass/volume)Ordered By: Tia Morrison on 07-26-2024 Calcium [Mass/Vol] 9.0 mg/dL 7.6-11.0 [facility] Serum or plasma urea nitroge n measurement (mass/volume)Ordered By: Tia Morrison on 07-26-2024 Urea nitrogen [Mass/Vol] 15 mg/dL 06-26 [facility] Sodium levelOrdered By: Tracy Morrison on 07-26-2024 Sodium [Moles/Vol] 141 mmol/L 133-145 [facility] Total proteinOrdered By: Aure Morrison on 07-26-2024 Protein [Mass/Vol] 6.5 g/dL 5.9-8.4 [facility] White blood cell (WBC) count Ordered By: Tia Morrison on 07-26-2024 WBC (Bld) [#/Vol] 9.8 10*3/uL 4.4-11.0 [facility] Basic Metabolic Profile (BMP )on 07-19-2024 BUN Normal - [facility] Comment on above: Order Comment: Result Comment: UTO X1 Performed By: #### L 500.2500 ####[facility] [address] [place], [address] BUN/CRE Normal - [facility] Comment on above: Order Comment: Result Comment: UTO X1 Performed By: #### L 500.2500 ####[facility] [address] [place], [address] Calcium Normal 7.6-11.0 [facility] Comment on above: Order Comment: . Result Comment: UTO X1 Performed By: #### L 500.2500 ####[facility] [address] [place], [address] CL Normal 98-108 [facility] Comment on above: Order Comment: . Result Comment: UTO X1 Performed By: #### L 500.2500 ####[facility] [address] [place], [address] CO2 Normal 21.0-32.0 [facility] Comment on above: Order Comment: . Result Comment: UTO X1 Performed By: #### L 500.2500 ####[facility] [address] [place], [address] CREAT,SERUM Normal 0.70-1.20 [facility] Comment on above: Order Comment: . Result Comment: UTO X1 Performed By: #### L 500.2500 ####[facility] [address] [place], [address] eGFR Normal >60 [facility] Comment on above: Order Comment: . Result Comment: UTO X1 Performed By: #### L 500.2500 ####[facility] [address] [place], [address] GAP Normal 5-15 [facility] Comment on above: Order Comment: . Result Comment: UTO X1 Performed By: #### L 500.2500 ####[facility] [address] [place], [address] GLU Normal 70-99 [facility] Comment on above: Order Comment: . Result Comment: UTO X1 Performed By: #### L 500.2500 ####[facility] [address] [place], [address] Potassium Normal 3.3-5.1 [facility] Comment on above: Order Comment: Result Comment: UTO X1 Performed By: #### L 500.2500 ####[facility] [address] [place], [address] Basic Metabolic Profile (BMP) Normal 133-145 [facility] Comment on above: Order Comment: Result Comment: UTO X1 Performed By: #### L 500.2500 ####[facility] [address] [place], [address] Anion gap in Serum or Plasma Ordered By: Tia Morrison on 07-12-2024 Anion gap [Moles/Vol] 10 mmol/L 5-15 [facility] BUN/creatinine ratioOrdered By: Tia Morrison on 07-12-2024 Urea nitrogen/Creatinine [Mass ratio] 38.0 mg/mg High 10-20 [facility] Basic Metabolic Profile (BMP )on 07-12-2024 BUN/CRE 38.0 RATIO High -20 [facility] Comment on above: Order Comment: Performed By: #### L 500.2500 ####[facility] [address] [place], [address] GAP 10 Normal -15 [facility] Comment on above: Order Comment: Performed By: #### L 500.2500 ####[facility] [address] [place], [address] Potassium [Moles/Vol] 4.0 mmol/L Normal 3.3-5.1 [facility] Comment on above: Order Comment: Performed By: #### L 500.2500 ####[facility] [address] [place], [address] Carbon dioxide, total [Moles /volume] in Central venous bloodOrdered By: Tia Morrison on 07-12-2024 CO2 [Moles/Vol] 29.5 mmol/L Normal 21.0-32.0 [facility] Comment on above: Order Comment: . Performed By: #### L 500.2500 ####[facility] [address] [place], [place], [id number] Chloride assayOrdered By: Yvon Morrison on 07-12-2024 Chloride [Moles/Vol] 98 mmol/L Normal 98-108 [facility] Comment on above: Order Comment: . Performed By: #### L 500.2500 ####[facility] [address] [place], [place], [phone] Glomerular filtration rate ( GFR) estimation/1.73 sq m using serum, plasma, or whole bOrdered By: Tia Morrison on 07-12-2024 GFR/1.73 sq M.predicted among non-blacks MDRD (S/P/Bld) [Vol rate/Area] 126 mL/min/{1.73_m2} Normal >60 [facility] Comment on above: mL/min/1.73m2 CKD-EP I Creatinine Equation (2020) Order Comment: Result Comment: mL/m in/1.73m2 CKD-EPI Creatinine Equation (2020) Performed By: #### L 500.2500 ####[facility] [address] [place], [place], [id number] Potassium measurement (mass/ volume)Ordered By: Tia Morrison on 07-12-2024 Potassium (Unsp spec) [Mass/Vol] 4.0 mmol/L 3.3-5.1 [facility] Serum creatinine measurement (mass/volume)Ordered By: Tia Morrison on 07-12-2024 Creatinine [Mass/Vol] 0.41 mg/dL Low 0.70-1.20 [facility] Comment on above: Order Comment: Performed By: #### L 500.2500 ####[facility] [address] [place], [place], [id number] Serum glucose measurement (m ass/volume)Ordered By: Tia Morrison on 07-12-2024 Glucose [Mass/Vol] 79 mg/dL Normal 70-99 [facility] Comment on above: Order Comment: 202.1 Performed By: #### L 500.2500 ####[facility] [address] [place], [place], [phone] Serum or plasma calcium shasha urement (mass/volume)Ordered By: Tia Morrison on 07-12-2024 Calcium [Mass/Vol] 9.5 mg/dL Normal 7.6-11.0 [facility] Comment on above: Order Comment: 202.1 Performed By: #### L 500.2500 ####[facility] [address] [place], [place], [phone] Serum or plasma urea nitroge n measurement (mass/volume)Ordered By: Tia Morrison on 07-12-2024 Urea nitrogen [Mass/Vol] 16 mg/dL Normal 4-19 [facility] Comment on above: Order Comment: 202.1 Performed By: #### L 500.2500 ####[facility] [address] [place], [place], [phone] Sodium levelOrdered By: Tracy Morrison on 07-12-2024 Sodium [Moles/Vol] 137 mmol/L Normal 133-145 [facility] Comment on above: Order Comment: 202.1 Performed By: #### L 500.2500 ####[facility] [address] [place], [place], [phone] Absolute lymphocyte countOrd ered By: Tia Morrison on 07-05-2024 Lymphocytes Auto (Unsp spec) [#/Vol] 1.71 10*3/uL 0.83-4.51 [facility] Absolute neutrophil countOrd ered By: Tia Morrison on 07-05-2024 Neutrophils (Bld) [#/Vol] 6.9 10*3/uL 2.0-7.7 [facility] Anion gap in Serum or Plasma Ordered By: Tia Morrison on 07-05-2024 Anion gap [Moles/Vol] 9 mmol/L 5-15 [facility] Automated lymphocyte count a s percentage of total leukocytesOrdered By: Tia Morrison on 07-05-2024 Lymphocytes/100 WBC Auto (Unsp spec) 17.1 % Low 19-41 [facility] BUN/creatinine ratioOrdered By: Tia Morrison on 07-05-2024 Urea nitrogen/Creatinine [Mass ratio] 25.8 mg/mg High 10-20 [facility] Basophil percentageOrdered B y: Tia Morrison on 07-05-2024 Basophils/100 WBC (Bld) 0.3 % 0-1 [facility] Bilirubin, totalOrdered By: Tia Morrison on 07-05-2024 Bilirubin [Mass/Vol] mg/dL 0.00-1.30 [facility] CBC W/Diff, Automatedon 06-09 Absolute Lymph 1.71 X10 3/uL Normal 0.83-4.51 [facility] Comment on above: Performed By: #### L 100.0100, L501.5200, L500.4050 ####[facility] [address] [place], [address] Absolute Neut 6.9 X10 3/uL Normal 2.0-7.7 [facility] Comment on above: Performed By: #### L 100.0100, L501.5200, L500.4050 ####[facility] [address] [place], [address] Basophils/100 WBC (Bld) 0.3 % Normal 0-1 [facility] Comment on above: Performed By: #### L 100.0100, L501.5200, L500.4050 ####[facility] [address] [place], [address] Eosinophils/100 WBC (Bld) 3.3 % Normal 0-5 [facility] Comment on above: Performed By: #### L 100.0100, L501.5200, L500.4050 ####[facility] [address] [place], [address] Erythrocyte distribution width (RBC) [Ratio] 13.9 % Normal 11.6-14.6 [facility] Comment on above: Performed By: #### L 100.0100, L501.5200, L500.4050 ####[facility] [address] [place], [address] Hematocrit (Bld) [Volume fraction] 31.8 % Low 37-47 [facility] Comment on above: Performed By: #### L 100.0100, L501.5200, L500.4050 ####[facility] [address] [place], [address] Hemoglobin (Bld) [Mass/Vol] 10.2 g/dL Low 12.0-15.0 [facility] Comment on above: Performed By: #### L 100.0100, L501.5200, L500.4050 ####[facility] [address] [place], [address] IG% 0.800 Normal 0.0-0.9 [facility] Comment on above: Result Comment: IG% - Immature Granulocytes (promyelocytes, myelocytes andmetamyelocytes) > 1% indicates that a LEFT SHIFT is Present. Performed By: #### L 100.0100, L501.5200, L500.4050 ####[facility] [address] [place], [address] Lymphocytes/100 WBC (Bld) 17.1 % Low 19-41 [facility] Comment on above: Performed By: #### L 100.0100, L501.5200, L500.4050 ####[facility] [address] [place], [address] MCH (RBC) [Entitic mass] 31.5 pg Normal 27.0-32.0 [facility] Comment on above: Performed By: #### L 100.0100, L501.5200, L500.4050 ####[facility] [address] [place], [address] MCHC (RBC) [Mass/Vol] 32.1 g/dL Normal 32-36 [facility] Comment on above: Performed By: #### L 100.0100, L501.5200, L500.4050 ####[facility] [address] [place], [address] MCV (RBC) [Entitic vol] 98.1 fL Normal 81-99 [facility] Comment on above: Performed By: #### L 100.0100, L501.5200, L500.4050 ####[facility] [address] [place], [address] Monocytes/100 WBC (Bld) 9.9 % Normal 0-10 [facility] Comment on above: Performed By: #### L 100.0100, L501.5200, L500.4050 ####[facility] [address] [place], [address] Neutrophils/100 WBC (Bld) 68.6 % Normal 47-70 [facility] Comment on above: Performed By: #### L 100.0100, L501.5200, L500.4050 ####[facility] [address] [place], [address] Nucleated RBC (Bld) [#/Vol] 0 10*3/uL Normal 0-5 [facility] Comment on above: Performed By: #### L 100.0100, L501.5200, L500.4050 ####[facility] [address] [place], [address] Platelet mean volume (Bld) [Entitic vol] 11.3 fL Normal 6.2-12.0 [facility] Comment on above: Performed By: #### L 100.0100, L501.5200, L500.4050 ####[facility] [address] [place], [address] Platelets (Bld) [#/Vol] 226 10*3/uL Normal 150-450 [facility] Comment on above: Performed By: #### L 100.0100, L501.5200, L500.4050 ####[facility] [address] [place], [address] RBC (Bld) [#/Vol] 3.24 10*6/uL Low 4.2-5.4 [facility] Comment on above: Performed By: #### L 100.0100, L501.5200, L500.4050 ####[facility] [address] [place], [address] RDW SD 50.9 fl High 35.1-43.9 [facility] Comment on above: Performed By: #### L 100.0100, L501.5200, L500.4050 ####[facility] [address] [place], [address] WBC (Bld) [#/Vol] 10.0 10*3/uL Normal 4.4-11.0 [facility] Comment on above: Performed By: #### L 100.0100, L501.5200, L500.4050 ####[facility] [address] [place], [address] Carbon dioxide, total [Moles /volume] in Central venous bloodOrdered By: Tia Morrison on 07-05-2024 CO2 [Moles/Vol] 30.6 mmol/L 21.0-32.0 [facility] Chloride assayOrdered By: Yvon Morrison on 07-05-2024 Chloride [Moles/Vol] 97 mmol/L Low 98-108 [facility] Comprehensive Metabolic Prof ilon 07-05-2024 Albumin [Mass/Vol] 3.3 g/dL Low 3.5-5.0 [facility] Comment on above: Performed By: #### L 100.0100, L501.5200, L500.4050 ####[facility] [address] [place], [address] Albumin/Globulin [Mass ratio] 1.1 {ratio} Normal 0.9-2.4 [facility] Comment on above: Performed By: #### L 100.0100, L501.5200, L500.4050 ####[facility] [address] [place], [address] ALK PHOS 110 U/L High 35-104 [facility] Comment on above: Performed By: #### L 100.0100, L501.5200, L500.4050 ####[facility] [address] [place], [address] ALT [Catalytic activity/Vol] 16 U/L Normal <=34 [facility] Comment on above: Performed By: #### L 100.0100, L501.5200, L500.4050 ####[facility] [address] [place], [address] AST [Catalytic activity/Vol] 18 U/L Normal <=31 [facility] Comment on above: Performed By: #### L 100.0100, L501.5200, L500.4050 ####[facility] [address] [place], [address] BUN/CRE 25.8 RATIO High 10-20 [facility] Comment on above: Performed By: #### L 100.0100, L501.5200, L500.4050 ####[facility] [address] [place], [address] Calcium [Mass/Vol] 8.8 mg/dL Normal 7.6-11.0 [facility] Comment on above: Performed By: #### L 100.0100, L501.5200, L500.4050 ####[facility] [address] [place], [address] Chloride [Moles/Vol] 97 mmol/L Low 98-108 [facility] Comment on above: Performed By: #### L 100.0100, L501.5200, L500.4050 ####[facility] [address] [place], [address] CO2 [Moles/Vol] 30.6 mmol/L Normal 21.0-32.0 [facility] Comment on above: Performed By: #### L 100.0100, L501.5200, L500.4050 ####[facility] [address] [place], [address] Creatinine [Mass/Vol] 0.46 mg/dL Low 0.70-1.20 [facility] Comment on above: Performed By: #### L 100.0100, L501.5200, L500.4050 ####[facility] [address] [place], [address] GAP 9 Normal 5-15 [facility] Comment on above: Performed By: #### L 100.0100, L501.5200, L500.4050 ####[facility] [address] [place], [address] GFR/1.73 sq M.predicted among non-blacks MDRD (S/P/Bld) [Vol rate/Area] 122 mL/min/{1.73_m2} Normal >60 [facility] Comment on above: Result Comment: mL/m in/1.73m2 CKD-EPI Creatinine Equation (2020) Performed By: #### L 100.0100, L501.5200, L500.4050 ####[facility] [address] [place], [address] Globulin (S) [Mass/Vol] 2.9 g/dL Normal 2.2-4.2 [facility] Comment on above: Performed By: #### L 100.0100, L501.5200, L500.4050 ####[facility] [address] [place], [address] Glucose [Mass/Vol] 91 mg/dL Normal 70-99 [facility] Comment on above: Performed By: #### L 100.0100, L501.5200, L500.4050 ####[facility] [address] [place], [address] Potassium [Moles/Vol] 4.6 mmol/L Normal 3.3-5.1 [facility] Comment on above: Performed By: #### L 100.0100, L501.5200, L500.4050 ####[facility] [address] [place], [address] Sodium [Moles/Vol] 137 mmol/L Normal 133-145 [facility] Comment on above: Performed By: #### L 100.0100, L501.5200, L500.4050 ####[facility] [address] [place], [address] T BILI < 0.15 Normal 0.00-1.30 [facility] Comment on above: Performed By: #### L 100.0100, L501.5200, L500.4050 ####[facility] [address] [place], [address] T PROT 6.2 g/dL Normal 5.9-8.4 [facility] Comment on above: Performed By: #### L 100.0100, L501.5200, L500.4050 ####[facility] [address] [place], [address] Urea nitrogen [Mass/Vol] 12 mg/dL Normal 4-19 [facility] Comment on above: Performed By: #### L 100.0100, L501.5200, L500.4050 ####[facility] [address] [place], [address] Eosinophil percentageOrdered By: Tia Morrison on 07-05-2024 Eosinophils/100 WBC (Bld) 3.3 % 0-5 [facility] Erythrocyte distribution wid th ratioOrdered By: Tia Morrison on 07-05-2024 Erythrocyte distribution width (RBC) [Ratio] 13.9 % 11.6-14.6 [facility] Erythrocyte distribution wid th standard deviationOrdered By: Tia Morrison on 07-05-2024 Erythrocyte distribution width (RBC) [Ratio] 50.9 fl High 35.1-43.9 [facility] Glomerular filtration rate ( GFR) estimation/1.73 sq m using serum, plasma, or whole bOrdered By: Tia Morrison on 07-05-2024 GFR/1.73 sq M.predicted among non-blacks MDRD (S/P/Bld) [Vol rate/Area] 122 mL/min/{1.73_m2} >60 [facility] Comment on above: mL/min/1.73m2 CKD-EP I Creatinine Equation (2020) Hematocrit Auto (Bld) [Volum e fraction]Ordered By: Tia Morrison on 07-05-2024 Hematocrit (Bld) [Volume fraction] 31.8 % Low 37-47 [facility] Hemoglobin measurementOrdere d By: Tia Morrison on 07-05-2024 Hemoglobin (Bld) [Mass/Vol] 10.2 g/dL Low 12.0-15.0 [facility] Immature granulocytes/100 WB C Auto (Bld)Ordered By: Tia Morrison on 07-05-2024 Immature granulocytes/100 WBC (Bld) 0.800 % 0.0-0.9 [facility] Comment on above: IG% - Immature Granu locytes (promyelocytes, myelocytes and metamyelocytes) > 1% indicates that a LEFT SHIFT is Present. Laboratory - Chemistry and C hemistry - challengeOrdered By: Tia Morrison on 07-05-2024 AST [Catalytic activity/Vol] 18 U/L <32 [facility] MCV (mean corpuscular volume ) determinationOrdered By: Tia Morrison on 07-05-2024 MCV (RBC) [Entitic vol] 98.1 fL 81-99 [facility] Magnesiumon 07-05-2024 Magnesium [Mass/Vol] 2.1 mg/dL Normal 1.5-2.2 [facility] Comment on above: Performed By: #### L 100.0100, L501.5200, L500.4050 ####[facility] [address] [place], [place], [id number] Magnesium measurement (mass/ volume)Ordered By: Tia Morrison on 07-05-2024 Magnesium (Unsp spec) [Mass/Vol] 2.1 mg/dL 1.5-2.2 [facility] Mean corpuscular hemoglobin (MCH) determinationOrdered By: iTa Morrison on 07-05-2024 MCH (RBC) [Entitic mass] 31.5 pg 27.0-32.0 [facility] Mean corpuscular hemoglobin concentration (MCHC) determinationOrdered By: Tia Morrison on 07-05-2024 MCHC (RBC) [Mass/Vol] 32.1 g/dL 32-36 [facility] Mean platelet volume determi nationOrdered By: Tia Morrison on 07-05-2024 Platelet mean volume (Bld) [Entitic vol] 11.3 fL 6.2-12.0 [facility] Monocyte percentageOrdered B y: Tia Morrison on 07-05-2024 Monocytes/100 WBC (Bld) 9.9 % 0-10 [facility] Neutrophil percentageOrdered By: Tia Morrison on 07-05-2024 Neutrophils/100 WBC (Bld) 68.6 % 47-70 [facility] Nucleated red blood cell per centageOrdered By: Tia Morrison on 07-05-2024 Nucleated RBC/100 WBC (Bld) [Ratio] 0 % 0-5 [facility] Platelet countOrdered By: Yvon Morrison on 07-05-2024 Platelets (Bld) [#/Vol] 226 10*3/uL 150-450 [facility] Potassium measurement (mass/ volume)Ordered By: Tia Morrison on 07-05-2024 Potassium (Unsp spec) [Mass/Vol] 4.6 mmol/L 3.3-5.1 [facility] RBC Auto (Bld) [#/Vol]Ordere d By: Tia Morrison on 07-05-2024 RBC (Bld) [#/Vol] 3.24 10*6/uL Low 4.2-5.4 [facility] Serum creatinine measurement (mass/volume)Ordered By: Tia Morrison on 07-05-2024 Creatinine [Mass/Vol] 0.46 mg/dL Low 0.70-1.20 [facility] Serum globulin measurementOr dered By: Tia Morrison on 07-05-2024 Globulin (S) [Mass/Vol] 2.9 g/dL 2.2-4.2 [facility] Serum glucose measurement (m ass/volume)Ordered By: Tia Morrison on 07-05-2024 Glucose [Mass/Vol] 91 mg/dL 70-99 [facility] Serum or plasma alanine walden otransferase (ALT) measurementOrdered By: Tia Morrison on 07-05-2024 ALT [Catalytic activity/Vol] 16 U/L <35 [facility] Serum or plasma albumin shasha urement (mass/volume)Ordered By: Tia Morrison on 07-05-2024 Albumin [Mass/Vol] 3.3 g/dL Low 3.5-5.0 [facility] Serum or plasma albumin/glob ulin mass ratioOrdered By: Tia Morrison on 07-05-2024 Albumin/Globulin [Mass ratio] 1.1 {ratio} 0.9-2.4 [facility] Serum or plasma alkaline brennen sphatase measurementOrdered By: Tia Morrison on 07-05-2024 ALP [Catalytic activity/Vol] 110 U/L High 35-104 [facility] Serum or plasma calcium shasha urement (mass/volume)Ordered By: Tia Morrison on 07-05-2024 Calcium [Mass/Vol] 8.8 mg/dL 7.6-11.0 [facility] Serum or plasma urea nitroge n measurement (mass/volume)Ordered By: Tia Morrison on 07-05-2024 Urea nitrogen [Mass/Vol] 12 mg/dL 4-19 [facility] Sodium levelOrdered By: Tracy Morrison on 07-05-2024 Sodium [Moles/Vol] 137 mmol/L 133-145 [facility] Total proteinOrdered By: Aure Morrison on 07-05-2024 Protein [Mass/Vol] 6.2 g/dL 5.9-8.4 [facility] White blood cell (WBC) count Ordered By: Tia Morrison on 07-05-2024 WBC (Bld) [#/Vol] 10.0 10*3/uL 4.4-11.0 [facility] Absolute lymphocyte countOrd ered By: Tia Morrison on 2024 Lymphocytes Auto (Unsp spec) [#/Vol] 2.21 10*3/uL 0.83-4.51 [facility] Absolute neutrophil countOrd ered By: Tia Morrison on 2024 Neutrophils (Bld) [#/Vol] 6.5 10*3/uL 2.0-7.7 [facility] Anion gap in Serum or Plasma Ordered By: Tia Morrison on 2024 Anion gap [Moles/Vol] 10 mmol/L 5-15 [facility] Automated lymphocyte count a s percentage of total leukocytesOrdered By: Tia Morrison on 2024 Lymphocytes/100 WBC Auto (Unsp spec) 21.4 % 19-41 [facility] BUN/creatinine ratioOrdered By: Tia Morrison on 2024 Urea nitrogen/Creatinine [Mass ratio] 23.1 mg/mg High 10-20 [facility] Basophil percentageOrdered B y: Tia Morrison on 2024 Basophils/100 WBC (Bld) 0.4 % 0-1 [facility] Bilirubin, totalOrdered By: Tia Morrison on 2024 Bilirubin [Mass/Vol] 0.27 mg/dL 0.00-1.30 [facility] CBC W/Diff, Automatedon 06-09 Absolute Lymph 2.21 X10 3/uL Normal 0.83-4.51 [facility] Comment on above: Order Comment: 202 Performed By: #### L 100.0100, L501.5200, L500.4050 ####[facility] [address] [place], [address] Absolute Neut 6.5 X10 3/uL Normal 2.0-7.7 [facility] Comment on above: Order Comment: 202 Performed By: #### L 100.0100, L501.5200, L500.4050 ####[facility] [address] [place], [address] Basophils/100 WBC (Bld) 0.4 % Normal 0-1 [facility] Comment on above: Order Comment: 202 Performed By: #### L 100.0100, L501.5200, L500.4050 ####[facility] [address] [place], [address] Eosinophils/100 WBC (Bld) 5.3 % High 0-5 [facility] Comment on above: Order Comment: 202 Performed By: #### L 100.0100, L501.5200, L500.4050 ####[facility] [address] [place], [address] Erythrocyte distribution width (RBC) [Ratio] 13.8 % Normal 11.6-14.6 [facility] Comment on above: Order Comment: 202 Performed By: #### L 100.0100, L501.5200, L500.4050 ####[facility] [address] [place], [address] Hematocrit (Bld) [Volume fraction] 33.0 % Low 37-47 [facility] Comment on above: Order Comment: 202 Performed By: #### L 100.0100, L501.5200, L500.4050 ####[facility] [address] [place], [address] Hemoglobin (Bld) [Mass/Vol] 10.5 g/dL Low 12.0-15.0 [facility] Comment on above: Order Comment: 202 Performed By: #### L 100.0100, L501.5200, L500.4050 ####[facility] [address] [place], [address] IG% 0.600 Normal 0.0-0.9 [facility] Comment on above: Order Comment: 202 Result Comment: IG% - Immature Granulocytes (promyelocytes, myelocytes andmetamyelocytes) > 1% indicates that a LEFT SHIFT is Present. Performed By: #### L 100.0100, L501.5200, L500.4050 ####[facility] [address] [place], [address] Lymphocytes/100 WBC (Bld) 21.4 % Normal 19-41 [facility] Comment on above: Order Comment: 202 Performed By: #### L 100.0100, L501.5200, L500.4050 ####[facility] [address] [place], [address] MCH (RBC) [Entitic mass] 31.3 pg Normal 27.0-32.0 [facility] Comment on above: Order Comment: 202 Performed By: #### L 100.0100, L501.5200, L500.4050 ####[facility] [address] [place], [address] MCHC (RBC) [Mass/Vol] 31.8 g/dL Low 32-36 [facility] Comment on above: Order Comment: 202 Performed By: #### L 100.0100, L501.5200, L500.4050 ####[facility] [address] [place], [address] MCV (RBC) [Entitic vol] 98.5 fL Normal 81-99 [facility] Comment on above: Order Comment: 202 Performed By: #### L 100.0100, L501.5200, L500.4050 ####[facility] [address] [place], [address] Monocytes/100 WBC (Bld) 10.0 % Normal 0-10 [facility] Comment on above: Order Comment: 202 Performed By: #### L 100.0100, L501.5200, L500.4050 ####[facility] [address] [place], [address] Neutrophils/100 WBC (Bld) 62.3 % Normal 47-70 [facility] Comment on above: Order Comment: 202 Performed By: #### L 100.0100, L501.5200, L500.4050 ####[facility] [address] [place], [address] Nucleated RBC (Bld) [#/Vol] 0 10*3/uL Normal 0-5 [facility] Comment on above: Order Comment: 202 Performed By: #### L 100.0100, L501.5200, L500.4050 ####[facility] [address] [place], [address] Platelet mean volume (Bld) [Entitic vol] 11.5 fL Normal 6.2-12.0 [facility] Comment on above: Order Comment: 202 Performed By: #### L 100.0100, L501.5200, L500.4050 ####[facility] [address] [place], [address] Platelets (Bld) [#/Vol] 209 10*3/uL Normal 150-450 [facility] Comment on above: Order Comment: 202 Performed By: #### L 100.0100, L501.5200, L500.4050 ####[facility] [address] [place], [address] RBC (Bld) [#/Vol] 3.35 10*6/uL Low 4.2-5.4 [facility] Comment on above: Order Comment: 202 Performed By: #### L 100.0100, L501.5200, L500.4050 ####[facility] [address] [place], [address] RDW SD 49.6 fl High 35.1-43.9 [facility] Comment on above: Order Comment: 202 Performed By: #### L 100.0100, L501.5200, L500.4050 ####[facility] [address] [place], [address] WBC (Bld) [#/Vol] 10.4 10*3/uL Normal 4.4-11.0 [facility] Comment on above: Order Comment: 202 Performed By: #### L 100.0100, L501.5200, L500.4050 ####[facility] [address] [place], [address] Carbon dioxide, total [Moles /volume] in Central venous bloodOrdered By: Tia Morrison on 2024 CO2 [Moles/Vol] 29.8 mmol/L 21.0-32.0 [facility] Chloride assayOrdered By: Yvon Morrison on 2024 Chloride [Moles/Vol] 95 mmol/L Low 98-108 [facility] Comprehensive Metabolic Prof ilon 2024 Albumin [Mass/Vol] 3.3 g/dL Low 3.5-5.0 [facility] Comment on above: Order Comment: 202 Performed By: #### L 100.0100, L501.5200, L500.4050 ####[facility] [address] [place], [address] Albumin/Globulin [Mass ratio] 1.0 {ratio} Normal 0.9-2.4 [facility] Comment on above: Order Comment: 202 Performed By: #### L 100.0100, L501.5200, L500.4050 ####[facility] [address] [place], [address] ALK PHOS 103 U/L Normal 35-104 [facility] Comment on above: Order Comment: 202 Performed By: #### L 100.0100, L501.5200, L500.4050 ####[facility] [address] [place], [address] ALT [Catalytic activity/Vol] 19 U/L Normal <=34 [facility] Comment on above: Order Comment: 202 Performed By: #### L 100.0100, L501.5200, L500.4050 ####[facility] [address] [place], [address] AST [Catalytic activity/Vol] 19 U/L Normal <=31 [facility] Comment on above: Order Comment: 202 Performed By: #### L 100.0100, L501.5200, L500.4050 ####[facility] [address] [place], [address] Bilirubin [Mass/Vol] 0.27 mg/dL Normal 0.00-1.30 [facility] Comment on above: Order Comment: 202 Performed By: #### L 100.0100, L501.5200, L500.4050 ####[facility] [address] [place], [address] BUN/CRE 23.1 RATIO High 10-20 [facility] Comment on above: Order Comment: 202 Performed By: #### L 100.0100, L501.5200, L500.4050 ####[facility] [address] [place], [address] Calcium [Mass/Vol] 9.0 mg/dL Normal 7.6-11.0 [facility] Comment on above: Order Comment: 202 Performed By: #### L 100.0100, L501.5200, L500.4050 ####[facility] [address] [place], [address] Chloride [Moles/Vol] 95 mmol/L Low 98-108 [facility] Comment on above: Order Comment: 202 Performed By: #### L 100.0100, L501.5200, L500.4050 ####[facility] [address] [place], [address] CO2 [Moles/Vol] 29.8 mmol/L Normal 21.0-32.0 [facility] Comment on above: Order Comment: 202 Performed By: #### L 100.0100, L501.5200, L500.4050 ####[facility] [address] [place], [address] Creatinine [Mass/Vol] 0.43 mg/dL Low 0.70-1.20 [facility] Comment on above: Order Comment: 202 Performed By: #### L 100.0100, L501.5200, L500.4050 ####[facility] [address] [place], [address] GAP 10 Normal 5-15 [facility] Comment on above: Order Comment: 202 Performed By: #### L 100.0100, L501.5200, L500.4050 ####[facility] [address] [place], [address] GFR/1.73 sq M.predicted among non-blacks MDRD (S/P/Bld) [Vol rate/Area] 125 mL/min/{1.73_m2} Normal >60 [facility] Comment on above: Order Comment: 202 Result Comment: mL/m in/1.73m2 CKD-EPI Creatinine Equation (2020) Performed By: #### L 100.0100, L501.5200, L500.4050 ####[facility] [address] [place], [address] Globulin (S) [Mass/Vol] 3.2 g/dL Normal 2.2-4.2 [facility] Comment on above: Order Comment: 202 Performed By: #### L 100.0100, L501.5200, L500.4050 ####[facility] [address] [place], [address] Glucose [Mass/Vol] 90 mg/dL Normal 70-99 [facility] Comment on above: Order Comment: 202 Performed By: #### L 100.0100, L501.5200, L500.4050 ####[facility] [address] [place], [address] Potassium [Moles/Vol] 4.1 mmol/L Normal 3.3-5.1 [facility] Comment on above: Order Comment: 202 Performed By: #### L 100.0100, L501.5200, L500.4050 ####[facility] [address] [place], [address] Sodium [Moles/Vol] 134 mmol/L Normal 133-145 [facility] Comment on above: Order Comment: 202 Performed By: #### L 100.0100, L501.5200, L500.4050 ####[facility] [address] [place], [address] T PROT 6.5 g/dL Normal 5.9-8.4 [facility] Comment on above: Order Comment: 202 Performed By: #### L 100.0100, L501.5200, L500.4050 ####[facility] [address] [place], [address] Urea nitrogen [Mass/Vol] 10 mg/dL Normal 4-19 [facility] Comment on above: Order Comment: 202 Performed By: #### L 100.0100, L501.5200, L500.4050 ####[facility] [address] [place], [address] Eosinophil percentageOrdered By: Tia Morrison on 2024 Eosinophils/100 WBC (Bld) 5.3 % High 0-5 [facility] Erythrocyte distribution wid th ratioOrdered By: Tia Morrison on 2024 Erythrocyte distribution width (RBC) [Ratio] 13.8 % 11.6-14.6 [facility] Erythrocyte distribution wid th standard deviationOrdered By: Tia Morrison on 2024 Erythrocyte distribution width (RBC) [Ratio] 49.6 fl High 35.1-43.9 [facility] Glomerular filtration rate ( GFR) estimation/1.73 sq m using serum, plasma, or whole bOrdered By: Tia Morrison on 2024 GFR/1.73 sq M.predicted among non-blacks MDRD (S/P/Bld) [Vol rate/Area] 125 mL/min/{1.73_m2} >60 [facility] Comment on above: mL/min/1.73m2 CKD-EP I Creatinine Equation (2020) Hematocrit Auto (Bld) [Volum e fraction]Ordered By: Tia Morrison on 2024 Hematocrit (Bld) [Volume fraction] 33.0 % Low 37-47 [facility] Hemoglobin measurementOrdere d By: Tia Morrison on 2024 Hemoglobin (Bld) [Mass/Vol] 10.5 g/dL Low 12.0-15.0 [facility] Immature granulocytes/100 WB C Auto (Bld)Ordered By: Tia Morrison on 2024 Immature granulocytes/100 WBC (Bld) 0.600 % 0.0-0.9 [facility] Comment on above: IG% - Immature Granu locytes (promyelocytes, myelocytes and metamyelocytes) > 1% indicates that a LEFT SHIFT is Present. Laboratory - Chemistry and C hemistry - challengeOrdered By: Tia Morrison on 2024 AST [Catalytic activity/Vol] 19 U/L <32 [facility] MCV (mean corpuscular volume ) determinationOrdered By: Tia Morrison on 2024 MCV (RBC) [Entitic vol] 98.5 fL 81-99 [facility] Magnesiumon 2024 Magnesium [Mass/Vol] 2.0 mg/dL Normal 1.5-2.2 [facility] Comment on above: Order Comment: 202 Performed By: #### L 100.0100, L501.5200, L500.4050 ####[facility] [address] [place], [address] Magnesium measurement (mass/ volume)Ordered By: Tia Morrison on 2024 Magnesium (Unsp spec) [Mass/Vol] 2.0 mg/dL 1.5-2.2 [facility] Mean corpuscular hemoglobin (MCH) determinationOrdered By: Tia Morrison on 2024 MCH (RBC) [Entitic mass] 31.3 pg 27.0-32.0 [facility] Mean corpuscular hemoglobin concentration (MCHC) determinationOrdered By: Tia Morrison on 2024 MCHC (RBC) [Mass/Vol] 31.8 g/dL Low 32-36 [facility] Mean platelet volume determi nationOrdered By: Tia Morrison on 2024 Platelet mean volume (Bld) [Entitic vol] 11.5 fL 6.2-12.0 [facility] Monocyte percentageOrdered B y: Tia Morrison on 2024 Monocytes/100 WBC (Bld) 10.0 % 0-10 [facility] Neutrophil percentageOrdered By: Tia Morrison on 2024 Neutrophils/100 WBC (Bld) 62.3 % 47-70 [facility] Nucleated red blood cell per centageOrdered By: Tia Morrison on 2024 Nucleated RBC/100 WBC (Bld) [Ratio] 0 % 0-5 [facility] Platelet countOrdered By: Yvon Morrison on 2024 Platelets (Bld) [#/Vol] 209 10*3/uL 150-450 [facility] Potassium measurement (mass/ volume)Ordered By: Tia Morrison on 2024 Potassium (Unsp spec) [Mass/Vol] 4.1 mmol/L 3.3-5.1 [facility] RBC Auto (Bld) [#/Vol]Ordere d By: Tia Morrison on 2024 RBC (Bld) [#/Vol] 3.35 10*6/uL Low 4.2-5.4 [facility] Serum creatinine measurement (mass/volume)Ordered By: Tia Morrison on 2024 Creatinine [Mass/Vol] 0.43 mg/dL Low 0.70-1.20 [facility] Serum globulin measurementOr dered By: Tia Morrison on 2024 Globulin (S) [Mass/Vol] 3.2 g/dL 2.2-4.2 [facility] Serum glucose measurement (m ass/volume)Ordered By: Tia Morrison on 2024 Glucose [Mass/Vol] 90 mg/dL 70-99 [facility] Serum or plasma alanine walden otransferase (ALT) measurementOrdered By: Tia Morrison on 2024 ALT [Catalytic activity/Vol] 19 U/L <35 [facility] Serum or plasma albumin shasha urement (mass/volume)Ordered By: Tia Morrison on 2024 Albumin [Mass/Vol] 3.3 g/dL Low 3.5-5.0 [facility] Serum or plasma albumin/glob ulin mass ratioOrdered By: Tia Morrison on 2024 Albumin/Globulin [Mass ratio] 1.0 {ratio} 0.9-2.4 [facility] Serum or plasma alkaline brennen sphatase measurementOrdered By: Tia Morrison on 2024 ALP [Catalytic activity/Vol] 103 U/L 35-104 [facility] Serum or plasma calcium shasha urement (mass/volume)Ordered By: Tia Morrison on 2024 Calcium [Mass/Vol] 9.0 mg/dL 7.6-11.0 [facility] Serum or plasma urea nitroge n measurement (mass/volume)Ordered By: Tia Morrison on 2024 Urea nitrogen [Mass/Vol] 10 mg/dL 4-19 [facility] Sodium levelOrdered By: Tracy Morrison on 2024 Sodium [Moles/Vol] 134 mmol/L 133-145 [facility] Total proteinOrdered By: Aure Morrison on 2024 Protein [Mass/Vol] 6.5 g/dL 5.9-8.4 [facility] White blood cell (WBC) count Ordered By: Tia Morrison on 2024 WBC (Bld) [#/Vol] 10.4 10*3/uL 4.4-11.0 [facility] CBC W/Diff, Automatedon 06-09 Absolute Neut Normal 2.0-7.7 [facility] Comment on above: Order Comment: Result Comment: DID NOT GET LABS 06/29/24 Performed By: #### L 100.0100, L500.4050 ####[facility] [address] [place], [address] HCT Normal 37-47 [facility] Comment on above: Order Comment: Result Comment: DID NOT GET LABS 06/29/24 Performed By: #### L 100.0100, L500.4050 ####[facility] [address] [place], [address] HGB Normal 12.0-15.0 [facility] Comment on above: Order Comment: Result Comment: DID NOT GET LABS 06/29/24 Performed By: #### L 100.0100, L500.4050 ####[facility] [address] [place], [address] MCH Normal 27.0-32.0 [facility] Comment on above: Order Comment: 202 Result Comment: DID NOT GET LABS 06/29/24 Performed By: #### L 100.0100, L500.4050 ####[facility] [address] [place], [address] MCHC Normal 32-36 [facility] Comment on above: Order Comment: Result Comment: DID NOT GET LABS 06/29/24 Performed By: #### L 100.0100, L500.4050 ####[facility] [address] [place], [address] MCV Normal 81-99 [facility] Comment on above: Order Comment: Result Comment: DID NOT GET LABS 06/29/24 Performed By: #### L 100.0100, L500.4050 ####[facility] [address] [place], [address] NEUT% Normal 47-70 [facility] Comment on above: Order Comment: Result Comment: DID NOT GET LABS 06/29/24 Performed By: #### L 100.0100, L500.4050 ####[facility] [address] [place], [address] PLT Normal 150-450 [facility] Comment on above: Order Comment: Result Comment: DID NOT GET LABS 06/29/24 Performed By: #### L 100.0100, L500.4050 ####[facility] [address] [place], [address] RBC Normal 4.2-5.4 [facility] Comment on above: Order Comment: Result Comment: DID NOT GET LABS 06/29/24 Performed By: #### L 100.0100, L500.4050 ####[facility] [address] [place], [address] RDW CV Normal 11.6-14.6 [facility] Comment on above: Order Comment: Result Comment: DID NOT GET LABS 06/29/24 Performed By: #### L 100.0100, L500.4050 ####[facility] [address] [place], [address] RDW SD Normal 35.1-43.9 [facility] Comment on above: Order Comment: Result Comment: DID NOT GET LABS 06/29/24 Performed By: #### L 100.0100, L500.4050 ####[facility] [address] [place], [address] WBC Normal 4.4-11.0 [facility] Comment on above: Order Comment: Result Comment: DID NOT GET LABS 06/29/24 Performed By: #### L 100.0100, L500.4050 ####[facility] [address] [place], [address] Comprehensive Metabolic Prof ilon 06-29-2024 ALB Normal 3.5-5.0 [facility] Comment on above: Order Comment: Result Comment: DID NOT GET LABS 06/29/24 Performed By: #### L 100.0100, L500.4050 ####[facility] [address] [place], [address] ALK PHOS Normal 35-104 [facility] Comment on above: Order Comment: Result Comment: DID NOT GET LABS 06/29/24 Performed By: #### L 100.0100, L500.4050 ####[facility] [address] [place], [address] ALT Normal <=34 [facility] Comment on above: Order Comment: Result Comment: DID NOT GET LABS 06/29/24 Performed By: #### L 100.0100, L500.4050 ####[facility] [address] [place], [address] AST Normal <=31 [facility] Comment on above: Order Comment: Result Comment: DID NOT GET LABS 06/29/24 Performed By: #### L 100.0100, L500.4050 ####[facility] [address] [place], [address] BUN Normal 4-19 [facility] Comment on above: Order Comment: Result Comment: DID NOT GET LABS 06/29/24 Performed By: #### L 100.0100, L500.4050 ####[facility] [address] [place], [address] BUN/CRE Normal 10-20 [facility] Comment on above: Order Comment: Result Comment: DID NOT GET LABS 06/29/24 Performed By: #### L 100.0100, L500.4050 ####[facility] [address] [place], [address] Calcium Normal 7.6-11.0 [facility] Comment on above: Order Comment: Result Comment: DID NOT GET LABS 06/29/24 Performed By: #### L 100.0100, L500.4050 ####[facility] [address] [place], [address] CL Normal 98-108 [facility] Comment on above: Order Comment: Result Comment: DID NOT GET LABS 06/29/24 Performed By: #### L 100.0100, L500.4050 ####[facility] [address] [place], [address] CO2 Normal 21.0-32.0 [facility] Comment on above: Order Comment: Result Comment: DID NOT GET LABS 06/29/24 Performed By: #### L 100.0100, L500.4050 ####[facility] [address] [place], [address] CREAT,SERUM Normal 0.70-1.20 [facility] Comment on above: Order Comment: Result Comment: DID NOT GET LABS 06/29/24 Performed By: #### L 100.0100, L500.4050 ####[facility] [address] [place], [address] eGFR Normal >60 [facility] Comment on above: Order Comment: Result Comment: DID NOT GET LABS 06/29/24 Performed By: #### L 100.0100, L500.4050 ####[facility] [address] [place], [address] GAP Normal 5-15 [facility] Comment on above: Order Comment: Result Comment: DID NOT GET LABS 06/29/24 Performed By: #### L 100.0100, L500.4050 ####[facility] [address] [place], [address] GLU Normal 70-99 [facility] Comment on above: Order Comment: Result Comment: DID NOT GET LABS 06/29/24 Performed By: #### L 100.0100, L500.4050 ####[facility] [address] [place], [address] Potassium Normal 3.3-5.1 [facility] Comment on above: Order Comment: Result Comment: DID NOT GET LABS 06/29/24 Performed By: #### L 100.0100, L500.4050 ####[facility] [address] [place], [address] T BILI Normal 0.00-1.30 [facility] Comment on above: Order Comment: Result Comment: DID NOT GET LABS 06/29/24 Performed By: #### L 100.0100, L500.4050 ####[facility] [address] [place], [address] T PROT Normal 5.9-8.4 [facility] Comment on above: Order Comment: Result Comment: DID NOT GET LABS 06/29/24 Performed By: #### L 100.0100, L500.4050 ####[facility] [address] [place], [address] Comprehensive Metabolic Profil Normal 133-145 [facility] Comment on above: Order Comment: Result Comment: DID NOT GET LABS 06/29/24 Performed By: #### L 100.0100, L500.4050 ####[facility] [address] [place], [address] CBC W/Diff, Automatedon 04-2 Absolute Neut Normal 2.0-7.7 [facility] Comment on above: Order Comment: . Result Comment: UTO X2 Performed By: #### L 100.0100, L500.4050 ####[facility] [address] [place], [address] HCT Normal 37-47 [facility] Comment on above: Order Comment: Result Comment: UTO X2 Performed By: #### L 100.0100, L500.4050 ####[facility] [address] [place], [address] HGB Normal 12.0-15.0 [facility] Comment on above: Order Comment: Result Comment: UTO X2 Performed By: #### L 100.0100, L500.4050 ####[facility] [address] [place], [address] MCH Normal 27.0-32.0 [facility] Comment on above: Order Comment: Result Comment: UTO X2 Performed By: #### L 100.0100, L500.4050 ####[facility] [address] [place], [address] MCHC Normal 32-36 [facility] Comment on above: Order Comment: Result Comment: UTO X2 Performed By: #### L 100.0100, L500.4050 ####[facility] [address] [place], [address] MCV Normal 81-99 [facility] Comment on above: Order Comment: Result Comment: UTO X2 Performed By: #### L 100.0100, L500.4050 ####[facility] [address] [place], [address] NEUT% Normal 47-70 [facility] Comment on above: Order Comment: Result Comment: UTO X2 Performed By: #### L 100.0100, L500.4050 ####[facility] [address] [place], [address] PLT Normal 150-450 [facility] Comment on above: Order Comment: Result Comment: UTO X2 Performed By: #### L 100.0100, L500.4050 ####[facility] [address] [place], [address] RBC Normal 4.2-5.4 [facility] Comment on above: Order Comment: Result Comment: UTO X2 Performed By: #### L 100.0100, L500.4050 ####[facility] [address] [place], [address] RDW CV Normal 11.6-14.6 [facility] Comment on above: Order Comment: Result Comment: UTO X2 Performed By: #### L 100.0100, L500.4050 ####[facility] [address] [place], [address] RDW SD Normal 35.1-43.9 [facility] Comment on above: Order Comment: Result Comment: UTO X2 Performed By: #### L 100.0100, L500.4050 ####[facility] [address] [place], [address] WBC Normal 4.4-11.0 [facility] Comment on above: Order Comment: Result Comment: UTO X2 Performed By: #### L 100.0100, L500.4050 ####[facility] [address] [place], [address] Comprehensive Metabolic Prof ilon 06-28-2024 ALB Normal 3.5-5.0 [facility] Comment on above: Order Comment: Result Comment: UTO X2 Performed By: #### L 100.0100, L500.4050 ####[facility] [address] [place], [address] ALK PHOS Normal 35-104 [facility] Comment on above: Order Comment: Result Comment: UTO X2 Performed By: #### L 100.0100, L500.4050 ####[facility] [address] [place], [address] ALT Normal <=34 [facility] Comment on above: Order Comment: Result Comment: UTO X2 Performed By: #### L 100.0100, L500.4050 ####[facility] [address] [place], [address] AST Normal <=31 [facility] Comment on above: Order Comment: Result Comment: UTO X2 Performed By: #### L 100.0100, L500.4050 ####[facility] [address] [place], [address] BUN Normal 4-19 [facility] Comment on above: Order Comment: Result Comment: UTO X2 Performed By: #### L 100.0100, L500.4050 ####[facility] [address] [place], [address] BUN/CRE Normal 10-20 [facility] Comment on above: Order Comment: Result Comment: UTO X2 Performed By: #### L 100.0100, L500.4050 ####[facility] [address] [place], [address] Calcium Normal 7.6-11.0 [facility] Comment on above: Order Comment: Result Comment: UTO X2 Performed By: #### L 100.0100, L500.4050 ####[facility] [address] [place], [address] CL Normal 98-108 [facility] Comment on above: Order Comment: Result Comment: UTO X2 Performed By: #### L 100.0100, L500.4050 ####[facility] [address] [place], [address] CO2 Normal 21.0-32.0 [facility] Comment on above: Order Comment: Result Comment: UTO X2 Performed By: #### L 100.0100, L500.4050 ####[facility] [address] [place], [address] CREAT,SERUM Normal 0.70-1.20 [facility] Comment on above: Order Comment: Result Comment: UTO X2 Performed By: #### L 100.0100, L500.4050 ####[facility] [address] [place], [address] eGFR Normal >60 [facility] Comment on above: Order Comment: Result Comment: UTO X2 Performed By: #### L 100.0100, L500.4050 ####[facility] [address] [place], [address] GAP Normal 5-15 [facility] Comment on above: Order Comment: Result Comment: UTO X2 Performed By: #### L 100.0100, L500.4050 ####[facility] [address] [place], [address] GLU Normal 70-99 [facility] Comment on above: Order Comment: Result Comment: UTO X2 Performed By: #### L 100.0100, L500.4050 ####[facility] [address] [place], [address] Potassium Normal 3.3-5.1 [facility] Comment on above: Order Comment: Result Comment: UTO X2 Performed By: #### L 100.0100, L500.4050 ####[facility] [address] [place], [address] T BILI Normal 0.00-1.30 [facility] Comment on above: Order Comment: Result Comment: UTO X2 Performed By: #### L 100.0100, L500.4050 ####[facility] [address] [place], [address] T PROT Normal 5.9-8.4 [facility] Comment on above: Order Comment: Result Comment: UTO X2 Performed By: #### L 100.0100, L500.4050 ####[facility] [address] [place], [address] Comprehensive Metabolic Profil Normal 133-145 [facility] Comment on above: Order Comment: Result Comment: UTO X2 Performed By: #### L 100.0100, L500.4050 ####[facility] [address] [place], [address] Absolute lymphocyte countOrd ered By: Tia Morrison on 06-21-2024 Lymphocytes Auto (Unsp spec) [#/Vol] 2.28 10*3/uL 0.83-4.51 [facility] Absolute neutrophil countOrd ered By: Tia Morrison on 06-21-2024 Neutrophils (Bld) [#/Vol] 8.9 10*3/uL High 2.0-7.7 [facility] Anion gap in Serum or Plasma Ordered By: Tia Morrison on 06-21-2024 Anion gap [Moles/Vol] 10 mmol/L 5-15 [facility] Automated lymphocyte count a s percentage of total leukocytesOrdered By: Tia Morrison on 06-21-2024 Lymphocytes/100 WBC Auto (Unsp spec) 18.0 % Low 19-41 [facility] BUN/creatinine ratioOrdered By: Tia Morrison on 06-21-2024 Urea nitrogen/Creatinine [Mass ratio] 34.3 mg/mg High 10-20 [facility] Basophil percentageOrdered B y: Tia Dinhmundojacques on 06-21-2024 Basophils/100 WBC (Bld) 0.4 % 0-1 [facility] Bilirubin, totalOrdered By: Tia Fabrizioscotty on 06-21-2024 Bilirubin [Mass/Vol] 0.34 mg/dL 0.00-1.30 [facility] CBC W/Diff, Automatedon 06-08 Absolute Lymph 2.28 X10 3/uL Normal 0.83-4.51 [facility] Comment on above: Performed By: #### L 100.0100, L506.1001, L501.9985, L503.0106, L501.5200, L501.9520, L500.4050 ####[facility] [address] [place], [address] Absolute Neut 8.9 X10 3/uL High 2.0-7.7 [facility] Comment on above: Performed By: #### L 100.0100, L506.1001, L501.9985, L503.0106, L501.5200, L501.9520, L500.4050 ####[facility] [address] [place], [address] Basophils/100 WBC (Bld) 0.4 % Normal 0-1 [facility] Comment on above: Performed By: #### L 100.0100, L506.1001, L501.9985, L503.0106, L501.5200, L501.9520, L500.4050 ####[facility] [address] [place], [address] Eosinophils/100 WBC (Bld) 3.3 % Normal 0-5 [facility] Comment on above: Performed By: #### L 100.0100, L506.1001, L501.9985, L503.0106, L501.5200, L501.9520, L500.4050 ####[facility] [address] [place], [address] Erythrocyte distribution width (RBC) [Ratio] 14.6 % Normal 11.6-14.6 [facility] Comment on above: Performed By: #### L 100.0100, L506.1001, L501.9985, L503.0106, L501.5200, L501.9520, L500.4050 ####[facility] [address] [place], [address] Hematocrit (Bld) [Volume fraction] 34.5 % Low 37-47 [facility] Comment on above: Performed By: #### L 100.0100, L506.1001, L501.9985, L503.0106, L501.5200, L501.9520, L500.4050 ####[facility] [address] [place], [address] Hemoglobin (Bld) [Mass/Vol] 11.0 g/dL Low 12.0-15.0 [facility] Comment on above: Performed By: #### L 100.0100, L506.1001, L501.9985, L503.0106, L501.5200, L501.9520, L500.4050 ####[facility] [address] [place], [address] IG% 0.600 Normal 0.0-0.9 [facility] Comment on above: Result Comment: IG% - Immature Granulocytes (promyelocytes, myelocytes andmetamyelocytes) > 1% indicates that a LEFT SHIFT is Present. Performed By: #### L 100.0100, L506.1001, L501.9985, L503.0106, L501.5200, L501.9520, L500.4050 ####[facility] [address] [place], [address] Lymphocytes/100 WBC (Bld) 18.0 % Low 19-41 [facility] Comment on above: Performed By: #### L 100.0100, L506.1001, L501.9985, L503.0106, L501.5200, L501.9520, L500.4050 ####[facility] [address] [place], [address] MCH (RBC) [Entitic mass] 31.6 pg Normal 27.0-32.0 [facility] Comment on above: Performed By: #### L 100.0100, L506.1001, L501.9985, L503.0106, L501.5200, L501.9520, L500.4050 ####[facility] [address] [place], [address] MCHC (RBC) [Mass/Vol] 31.9 g/dL Low 32-36 [facility] Comment on above: Performed By: #### L 100.0100, L506.1001, L501.9985, L503.0106, L501.5200, L501.9520, L500.4050 ####[facility] [address] [place], [address] MCV (RBC) [Entitic vol] 99.1 fL High 81-99 [facility] Comment on above: Performed By: #### L 100.0100, L506.1001, L501.9985, L503.0106, L501.5200, L501.9520, L500.4050 ####[facility] [address] [place], [address] Monocytes/100 WBC (Bld) 8.0 % Normal 0-10 [facility] Comment on above: Performed By: #### L 100.0100, L506.1001, L501.9985, L503.0106, L501.5200, L501.9520, L500.4050 ####[facility] [address] [place], [address] Neutrophils/100 WBC (Bld) 69.7 % Normal 47-70 [facility] Comment on above: Performed By: #### L 100.0100, L506.1001, L501.9985, L503.0106, L501.5200, L501.9520, L500.4050 ####[facility] [address] [place], [address] Nucleated RBC (Bld) [#/Vol] 0 10*3/uL Normal 0-5 [facility] Comment on above: Performed By: #### L 100.0100, L506.1001, L501.9985, L503.0106, L501.5200, L501.9520, L500.4050 ####[facility] [address] [place], [address] Platelet mean volume (Bld) [Entitic vol] 11.9 fL Normal 6.2-12.0 [facility] Comment on above: Performed By: #### L 100.0100, L506.1001, L501.9985, L503.0106, L501.5200, L501.9520, L500.4050 ####[facility] [address] [place], [address] Platelets (Bld) [#/Vol] 235 10*3/uL Normal 150-450 [facility] Comment on above: Performed By: #### L 100.0100, L506.1001, L501.9985, L503.0106, L501.5200, L501.9520, L500.4050 ####[facility] [address] [place], [address] RBC (Bld) [#/Vol] 3.48 10*6/uL Low 4.2-5.4 [facility] Comment on above: Performed By: #### L 100.0100, L506.1001, L501.9985, L503.0106, L501.5200, L501.9520, L500.4050 ####[facility] [address] [place], [place], [phone]) RDW SD 53.0 fl High 35.1-43.9 [facility] Comment on above: Performed By: #### L 100.0100, L506.1001, L501.9985, L503.0106, L501.5200, L501.9520, L500.4050 ####[facility] [address] [place], [place], [id number](176) WBC (Bld) [#/Vol] 12.7 10*3/uL High 4.4-11.0 [facility] Comment on above: Performed By: #### L 100.0100, L506.1001, L501.9985, L503.0106, L501.5200, L501.9520, L500.4050 ####[facility] [address] [facility] [place], [place], [phone]) Carbon dioxide, total [Moles /volume] in Central venous bloodOrdered By: Tia Morrison on 06-21-2024 CO2 [Moles/Vol] 31.5 mmol/L 21.0-32.0 [facility] Chloride assayOrdered By: Yvon Morrison on 06-21-2024 Chloride [Moles/Vol] 92 mmol/L Low 98-108 [facility] Comprehensive Metabolic Prof ilon 06-21-2024 Albumin [Mass/Vol] 3.6 g/dL Normal 3.5-5.0 [facility] Comment on above: Performed By: #### L 100.0100, L506.1001, L501.9985, L503.0106, L501.5200, L501.9520, L500.4050 ####[facility] [address] [place], [address] Albumin/Globulin [Mass ratio] 1.1 {ratio} Normal 0.9-2.4 [facility] Comment on above: Performed By: #### L 100.0100, L506.1001, L501.9985, L503.0106, L501.5200, L501.9520, L500.4050 ####[facility] [address] [place], [address] ALK PHOS 97 U/L Normal 35-104 [facility] Comment on above: Performed By: #### L 100.0100, L506.1001, L501.9985, L503.0106, L501.5200, L501.9520, L500.4050 ####[facility] [address] [place], [address] ALT [Catalytic activity/Vol] 23 U/L Normal <=34 [facility] Comment on above: Performed By: #### L 100.0100, L506.1001, L501.9985, L503.0106, L501.5200, L501.9520, L500.4050 ####[facility] [address] [place], [address] AST [Catalytic activity/Vol] 19 U/L Normal <=31 [facility] Comment on above: Performed By: #### L 100.0100, L506.1001, L501.9985, L503.0106, L501.5200, L501.9520, L500.4050 ####[facility] [address] [place], [address] Bilirubin [Mass/Vol] 0.34 mg/dL Normal 0.00-1.30 [facility] Comment on above: Performed By: #### L 100.0100, L506.1001, L501.9985, L503.0106, L501.5200, L501.9520, L500.4050 ####[facility] [address] [place], [address] BUN/CRE 34.3 RATIO High 10-20 [facility] Comment on above: Performed By: #### L 100.0100, L506.1001, L501.9985, L503.0106, L501.5200, L501.9520, L500.4050 ####[facility] [address] [place], [address] Calcium [Mass/Vol] 9.6 mg/dL Normal 7.6-11.0 [facility] Comment on above: Performed By: #### L 100.0100, L506.1001, L501.9985, L503.0106, L501.5200, L501.9520, L500.4050 ####[facility] [address] [place], [address] Chloride [Moles/Vol] 92 mmol/L Low 98-108 [facility] Comment on above: Performed By: #### L 100.0100, L506.1001, L501.9985, L503.0106, L501.5200, L501.9520, L500.4050 ####[facility] [address] [place], [address] CO2 [Moles/Vol] 31.5 mmol/L Normal 21.0-32.0 [facility] Comment on above: Performed By: #### L 100.0100, L506.1001, L501.9985, L503.0106, L501.5200, L501.9520, L500.4050 ####[facility] [address] [place], [address] Creatinine [Mass/Vol] 0.43 mg/dL Low 0.70-1.20 [facility] Comment on above: Performed By: #### L 100.0100, L506.1001, L501.9985, L503.0106, L501.5200, L501.9520, L500.4050 ####[facility] [address] [place], [address] GAP 10 Normal 5-15 [facility] Comment on above: Performed By: #### L 100.0100, L506.1001, L501.9985, L503.0106, L501.5200, L501.9520, L500.4050 ####[facility] [address] [place], [address] GFR/1.73 sq M.predicted among non-blacks MDRD (S/P/Bld) [Vol rate/Area] 126 mL/min/{1.73_m2} Normal >60 [facility] Comment on above: Result Comment: mL/m in/1.73m2 CKD-EPI Creatinine Equation (2020) Performed By: #### L 100.0100, L506.1001, L501.9985, L503.0106, L501.5200, L501.9520, L500.4050 ####[facility] [address] [place], [address] Globulin (S) [Mass/Vol] 3.4 g/dL Normal 2.2-4.2 [facility] Comment on above: Performed By: #### L 100.0100, L506.1001, L501.9985, L503.0106, L501.5200, L501.9520, L500.4050 ####[facility] [address] [place], [address] Glucose [Mass/Vol] 80 mg/dL Normal 70-99 [facility] Comment on above: Performed By: #### L 100.0100, L506.1001, L501.9985, L503.0106, L501.5200, L501.9520, L500.4050 ####[facility] [address] [place], [address] Potassium [Moles/Vol] 4.0 mmol/L Normal 3.3-5.1 [facility] Comment on above: Performed By: #### L 100.0100, L506.1001, L501.9985, L503.0106, L501.5200, L501.9520, L500.4050 ####[facility] [address] [place], [address] Sodium [Moles/Vol] 134 mmol/L Normal 133-145 [facility] Comment on above: Performed By: #### L 100.0100, L506.1001, L501.9985, L503.0106, L501.5200, L501.9520, L500.4050 ####[facility] [address] [place], [address] T PROT 7.0 g/dL Normal 5.9-8.4 [facility] Comment on above: Performed By: #### L 100.0100, L506.1001, L501.9985, L503.0106, L501.5200, L501.9520, L500.4050 ####[facility] [address] [place], [address] Urea nitrogen [Mass/Vol] 15 mg/dL Normal 4-19 [facility] Comment on above: Performed By: #### L 100.0100, L506.1001, L501.9985, L503.0106, L501.5200, L501.9520, L500.4050 ####[facility] [address] [place], [address] Eosinophil percentageOrdered By: Tia Morrison on 06-21-2024 Eosinophils/100 WBC (Bld) 3.3 % 0-5 [facility] Erythrocyte distribution wid th ratioOrdered By: Tia Morrison on 06-21-2024 Erythrocyte distribution width (RBC) [Ratio] 14.6 % 11.6-14.6 [facility] Erythrocyte distribution wid th standard deviationOrdered By: Tia Morrison on 06-21-2024 Erythrocyte distribution width (RBC) [Ratio] 53.0 fl High 35.1-43.9 [facility] Glomerular filtration rate ( GFR) estimation/1.73 sq m using serum, plasma, or whole bOrdered By: Tia Morrison on 06-21-2024 GFR/1.73 sq M.predicted among non-blacks MDRD (S/P/Bld) [Vol rate/Area] 126 mL/min/{1.73_m2} >60 [facility] Comment on above: mL/min/1.73m2 CKD-EP I Creatinine Equation (2020) Hematocrit Auto (Bld) [Volum e fraction]Ordered By: Tia Morrison on 06-21-2024 Hematocrit (Bld) [Volume fraction] 34.5 % Low 37-47 [facility] Hemoglobin A1con 06-21-2024 HbA1c (Bld) [Mass fraction] 5.0 % Normal <=5.6 [facility] Comment on above: Result Comment: Norm al < 5.7 % Prediabetic 5.7 - 6.4 % Diabetic >or= 6.5 % Please note range changes. Performed By: #### L 100.0100, L506.1001, L501.9985, L503.0106, L501.5200, L501.9520, L500.4050 ####[facility] [address] [place], [place], [address] Hemoglobin A1c percentageOrd ered By: Tia Morrison on 06-21-2024 HbA1c (Bld) [Mass fraction] 5.0 % <5.7 [facility] Comment on above: Normal < 5.7 % Predi abetic 5.7 - 6.4 % Diabetic >or= 6.5 % Please note range changes. Hemoglobin measurementOrdere d By: Tia Morrison on 06-21-2024 Hemoglobin (Bld) [Mass/Vol] 11.0 g/dL Low 12.0-15.0 [facility] Immature granulocytes/100 WB C Auto (Bld)Ordered By: Tia Morrison on 06-21-2024 Immature granulocytes/100 WBC (Bld) 0.600 % 0.0-0.9 [facility] Comment on above: IG% - Immature Granu locytes (promyelocytes, myelocytes and metamyelocytes) > 1% indicates that a LEFT SHIFT is Present. Laboratory - Chemistry and C hemistry - challengeOrdered By: Tia Morrison on 06-21-2024 AST [Catalytic activity/Vol] 19 U/L <32 [facility] MCV (mean corpuscular volume ) determinationOrdered By: Tia Morrison on 06-21-2024 MCV (RBC) [Entitic vol] 99.1 fL High 81-99 [facility] Magnesiumon 06-21-2024 Magnesium [Mass/Vol] 2.1 mg/dL Normal 1.5-2.2 [facility] Comment on above: Performed By: #### L 100.0100, L506.1001, L501.9985, L503.0106, L501.5200, L501.9520, L500.4050 ####[facility] [address] [place], [place], [address] Magnesium measurement (mass/ volume)Ordered By: Tia Morrison on 06-21-2024 Magnesium (Unsp spec) [Mass/Vol] 2.1 mg/dL 1.5-2.2 [facility] Mean corpuscular hemoglobin (MCH) determinationOrdered By: Tia Morrison on 06-21-2024 MCH (RBC) [Entitic mass] 31.6 pg 27.0-32.0 [facility] Mean corpuscular hemoglobin concentration (MCHC) determinationOrdered By: Tia Morrison on 06-21-2024 MCHC (RBC) [Mass/Vol] 31.9 g/dL Low 32-36 [facility] Mean platelet volume determi nationOrdered By: Tia Morrison on 06-21-2024 Platelet mean volume (Bld) [Entitic vol] 11.9 fL 6.2-12.0 [facility] Monocyte percentageOrdered B y: Tia Morrison on 06-21-2024 Monocytes/100 WBC (Bld) 8.0 % 0-10 [facility] Neutrophil percentageOrdered By: Tia Morrison on 06-21-2024 Neutrophils/100 WBC (Bld) 69.7 % 47-70 [facility] Nucleated red blood cell per centageOrdered By: Tia Morrison on 06-21-2024 Nucleated RBC/100 WBC (Bld) [Ratio] 0 % 0-5 [facility] Platelet countOrdered By: Yvon Morrison on 06-21-2024 Platelets (Bld) [#/Vol] 235 10*3/uL 150-450 [facility] Potassium measurement (mass/ volume)Ordered By: Tia Morrison on 06-21-2024 Potassium (Unsp spec) [Mass/Vol] 4.0 mmol/L 3.3-5.1 [facility] RBC Auto (Bld) [#/Vol]Ordere d By: Tia Morrison on 06-21-2024 RBC (Bld) [#/Vol] 3.48 10*6/uL Low 4.2-5.4 [facility] Serum creatinine measurement (mass/volume)Ordered By: Tia Morrison on 06-21-2024 Creatinine [Mass/Vol] 0.43 mg/dL Low 0.70-1.20 [facility] Serum globulin measurementOr dered By: Tia Morrison on 06-21-2024 Globulin (S) [Mass/Vol] 3.4 g/dL 2.2-4.2 [facility] Serum glucose measurement (m ass/volume)Ordered By: Tia Morrison on 06-21-2024 Glucose [Mass/Vol] 80 mg/dL 70-99 [facility] Serum or plasma alanine walden otransferase (ALT) measurementOrdered By: Tia Morrison on 06-21-2024 ALT [Catalytic activity/Vol] 23 U/L <35 [facility] Serum or plasma albumin shasha urement (mass/volume)Ordered By: Tia Morrison on 06-21-2024 Albumin [Mass/Vol] 3.6 g/dL 3.5-5.0 [facility] Serum or plasma albumin/glob ulin mass ratioOrdered By: Tia Morrison on 06-21-2024 Albumin/Globulin [Mass ratio] 1.1 {ratio} 0.9-2.4 [facility] Serum or plasma alkaline brennen sphatase measurementOrdered By: Tia Morrison on 06-21-2024 ALP [Catalytic activity/Vol] 97 U/L 35-104 [facility] Serum or plasma calcium shasha urement (mass/volume)Ordered By: Tia Morrison on 06-21-2024 Calcium [Mass/Vol] 9.6 mg/dL 7.6-11.0 [facility] Serum or plasma urea nitroge n measurement (mass/volume)Ordered By: Tia Morrison on 06-21-2024 Urea nitrogen [Mass/Vol] 15 mg/dL 4-19 [facility] Sodium levelOrdered By: Tracy Morrison on 06-21-2024 Sodium [Moles/Vol] 134 mmol/L 133-145 [facility] TSH DL <= 0.005 mIU/L QnOrde red By: Tia Morrison on 06-21-2024 TSH Qn 3.960 uIU/mL 0.300-4.200 [facility] Thyroid Stim Hormone (TSH)on 06-21-2024 TSH 3.960 uIU/mL Normal 0.300-4.200 [facility] Comment on above: Performed By: #### L 100.0100, L506.1001, L501.9985, L503.0106, L501.5200, L501.9520, L500.4050 ####[facility] [address] [place], [address] Total proteinOrdered By: Aure Morrison on 06-21-2024 Protein [Mass/Vol] 7.0 g/dL 5.9-8.4 [facility] Vitamin B12on 06-21-2024 Cobalamin (Vitamin B12) [Mass/Vol] 755 pg/mL Normal 180-914 [facility] Comment on above: Performed By: #### L 100.0100, L506.1001, L501.9985, L503.0106, L501.5200, L501.9520, L500.4050 ####[facility] [address] [place], [place], [address] Vitamin B12 ser/plasOrdered By: Tia Morrison on 06-21-2024 Cobalamin (Vitamin B12) [Mass/Vol] 755 pg/mL 180-914 [facility] Vitamin D,25 Hydroxyon 06-21 Vitamin D 25-OH 24.1 ng/mL Low 30-100 [facility] Comment on above: Result Comment: Darcie min D StatusDeficiency: <20 ng/mL (50nmol/L)Insufficiency: 20-30 ng/mL (50-75 nmol/L)Sufficiency: 30-100 ng/mL (75-250 nmol/L)Toxicity: >100 ng/mL (>250 nmol/L) Performed By: #### L 100.0100, L506.1001, L501.9985, L503.0106, L501.5200, L501.9520, L500.4050 ####[facility] [address] [facility] [place], [address] White blood cell (WBC) count Ordered By: Tia Morrison on 06-21-2024 WBC (Bld) [#/Vol] 12.7 10*3/uL High 4.4-11.0 [facility] Anion gap in Serum or Plasma Ordered By: Tia Morrison on 06-18-2024 Anion gap [Moles/Vol] 10 mmol/L 5-15 [facility] BUN/creatinine ratioOrdered By: Tia Morrison on 06-18-2024 Urea nitrogen/Creatinine [Mass ratio] 44.5 mg/mg High 10-20 [facility] Bilirubin, totalOrdered By: Tia Morrison on 06-18-2024 Bilirubin [Mass/Vol] 0.25 mg/dL 0.00-1.30 [facility] CBC-Complete Blood Cnt No Yesenia shannon 06-18-2024 Erythrocyte distribution width (RBC) [Ratio] 14.5 % Normal 11.6-14.6 [facility] Comment on above: Order Comment: . Performed By: #### L 100.0500, L500.4050 ####[facility] [address] [place], [address] Hematocrit (Bld) [Volume fraction] 34.9 % Low 37-47 [facility] Comment on above: Order Comment: . Performed By: #### L 100.0500, L500.4050 ####[facility] [address] [place], [address] Hemoglobin (Bld) [Mass/Vol] 10.9 g/dL Low 12.0-15.0 [facility] Comment on above: Order Comment: . Performed By: #### L 100.0500, L500.4050 ####[facility] [address] [place], [address] MCH (RBC) [Entitic mass] 31.6 pg Normal 27.0-32.0 [facility] Comment on above: Order Comment: . Performed By: #### L 100.0500, L500.4050 ####[facility] [address] [place], [address] MCHC (RBC) [Mass/Vol] 31.2 g/dL Low 32-36 [facility] Comment on above: Order Comment: . Performed By: #### L 100.0500, L500.4050 ####[facility] [address] [place], [address] MCV (RBC) [Entitic vol] 101.2 fL High 81-99 [facility] Comment on above: Order Comment: . Performed By: #### L 100.0500, L500.4050 ####[facility] [address] [place], [address] Platelet mean volume (Bld) [Entitic vol] 11.3 fL Normal 6.2-12.0 [facility] Comment on above: Order Comment: . Performed By: #### L 100.0500, L500.4050 ####[facility] [address] [place], [address] Platelets (Bld) [#/Vol] 212 10*3/uL Normal 150-450 [facility] Comment on above: Order Comment: . Performed By: #### L 100.0500, L500.4050 ####[facility] [address] [place], [address] RBC (Bld) [#/Vol] 3.45 10*6/uL Low 4.2-5.4 [facility] Comment on above: Order Comment: Performed By: #### L 100.0500, L500.4050 ####[facility] [address] [place], [address] RDW SD 54.3 fl High 35.1-43.9 [facility] Comment on above: Order Comment: Performed By: #### L 100.0500, L500.4050 ####[facility] [address] [place], [address] WBC (Bld) [#/Vol] 12.3 10*3/uL High 4.4-11.0 [facility] Comment on above: Order Comment: Performed By: #### L 100.0500, L500.4050 ####[facility] [address] [place], [address] Carbon dioxide, total [Moles /volume] in Central venous bloodOrdered By: Tia Morrison on 06-18-2024 CO2 [Moles/Vol] 33.5 mmol/L High 21.0-32.0 [facility] Chloride assayOrdered By: Yvon Morrison on 06-18-2024 Chloride [Moles/Vol] 94 mmol/L Low 98-108 [facility] Comprehensive Metabolic Prof ilon 06-18-2024 Albumin [Mass/Vol] 3.5 g/dL Normal 3.5-5.0 [facility] Comment on above: Order Comment: . Performed By: #### L 100.0500, L500.4050 ####[facility] [address] [place], [address] Albumin/Globulin [Mass ratio] 1.1 {ratio} Normal 0.9-2.4 [facility] Comment on above: Order Comment: . Performed By: #### L 100.0500, L500.4050 ####[facility] [address] [place], [address] ALK PHOS 93 U/L Normal 35-104 [facility] Comment on above: Order Comment: . Performed By: #### L 100.0500, L500.4050 ####[facility] [address] [place], [address] ALT [Catalytic activity/Vol] 26 U/L Normal <=34 [facility] Comment on above: Order Comment: . Performed By: #### L 100.0500, L500.4050 ####[facility] [address] [place], [address] AST [Catalytic activity/Vol] 19 U/L Normal <=31 [facility] Comment on above: Order Comment: . Performed By: #### L 100.0500, L500.4050 ####[facility] [address] [place], [address] Bilirubin [Mass/Vol] 0.25 mg/dL Normal 0.00-1.30 [facility] Comment on above: Order Comment: .1 Performed By: #### L 100.0500, L500.4050 ####[facility] [address] [place], [address] BUN/CRE 44.5 RATIO High 10-20 [facility] Comment on above: Order Comment: . Performed By: #### L 100.0500, L500.4050 ####[facility] [address] [place], [address] Calcium [Mass/Vol] 9.8 mg/dL Normal 7.6-11.0 [facility] Comment on above: Order Comment: . Performed By: #### L 100.0500, L500.4050 ####[facility] [address] [place], [address] Chloride [Moles/Vol] 94 mmol/L Low 98-108 [facility] Comment on above: Order Comment: . Performed By: #### L 100.0500, [id number] ####[facility] [address] [place], [address] CO2 [Moles/Vol] 33.5 mmol/L High 21.0-32.0 [facility] Comment on above: Order Comment: . Performed By: #### L 100.0500, [id number] ####[facility] [address] [place], [address] Creatinine [Mass/Vol] 0.40 mg/dL Low 0.70-1.20 [facility] Comment on above: Order Comment: . Performed By: #### L 100.0500, [id number] ####[facility] [address] [place], [address] GAP 10 Normal 5-15 [facility] Comment on above: Order Comment: . Performed By: #### L 100.0500, [id number] ####[facility] [address] [place], [address] GFR/1.73 sq M.predicted among non-blacks MDRD (S/P/Bld) [Vol rate/Area] 127 mL/min/{1.73_m2} Normal >60 [facility] Comment on above: Order Comment: . Result Comment: mL/m in/1.73m2 CKD-EPI Creatinine Equation (2020) Performed By: #### L 100.0500, L500.4050 ####[facility] [address] [place], [address] Globulin (S) [Mass/Vol] 3.3 g/dL Normal 2.2-4.2 [facility] Comment on above: Order Comment: . Performed By: #### L 100.0500, L500.4050 ####[facility] [address] [place], [address] Glucose [Mass/Vol] 92 mg/dL Normal 70-99 [facility] Comment on above: Order Comment: . Performed By: #### L 100.0500, L500.4050 ####[facility] [address] [place], [address] Potassium [Moles/Vol] 4.6 mmol/L Normal 3.3-5.1 [facility] Comment on above: Order Comment: . Performed By: #### L 100.0500, L500.4050 ####[facility] [address] [place], [address] Sodium [Moles/Vol] 138 mmol/L Normal 133-145 [facility] Comment on above: Order Comment: . Performed By: #### L 100.0500, L500.4050 ####[facility] [address] [place], [address] T PROT 6.8 g/dL Normal 5.9-8.4 [facility] Comment on above: Order Comment: 202.1 Performed By: #### L 100.0500, L500.4050 ####[facility] [address] [place], [place], [id number] Urea nitrogen [Mass/Vol] 18 mg/dL Normal 4-19 [facility] Comment on above: Order Comment: 202.1 Performed By: #### L 100.0500, L500.4050 ####[facility] [address] [place], [place], [address] Erythrocyte distribution wid th ratioOrdered By: Tia Morrison on 06-18-2024 Erythrocyte distribution width (RBC) [Ratio] 14.5 % 11.6-14.6 [facility] Erythrocyte distribution wid th standard deviationOrdered By: Tia Morrison on 06-18-2024 Erythrocyte distribution width (RBC) [Ratio] 54.3 fl High 35.1-43.9 [facility] Glomerular filtration rate ( GFR) estimation/1.73 sq m using serum, plasma, or whole bOrdered By: Tia Morrison on 06-18-2024 GFR/1.73 sq M.predicted among non-blacks MDRD (S/P/Bld) [Vol rate/Area] 127 mL/min/{1.73_m2} >60 [facility] Comment on above: mL/min/1.73m2 CKD-EP I Creatinine Equation (2020) Hematocrit Auto (Bld) [Volum e fraction]Ordered By: Tia Morrison on 06-18-2024 Hematocrit (Bld) [Volume fraction] 34.9 % Low 37-47 [facility] Hemoglobin measurementOrdere d By: Tia Morrison on 06-18-2024 Hemoglobin (Bld) [Mass/Vol] 10.9 g/dL Low 12.0-15.0 [facility] Laboratory - Chemistry and C hemistry - challengeOrdered By: Tia Morrison on 06-18-2024 AST [Catalytic activity/Vol] 19 U/L <32 [facility] MCV (mean corpuscular volume ) determinationOrdered By: Tia Morrison on 06-18-2024 MCV (RBC) [Entitic vol] 101.2 fL High 81-99 [facility] Mean corpuscular hemoglobin (MCH) determinationOrdered By: Tia Morrison on 06-18-2024 MCH (RBC) [Entitic mass] 31.6 pg 27.0-32.0 [facility] Mean corpuscular hemoglobin concentration (MCHC) determinationOrdered By: Tia Morrison on 06-18-2024 MCHC (RBC) [Mass/Vol] 31.2 g/dL Low 32-36 [facility] Mean platelet volume determi nationOrdered By: Tia Morrison on 06-18-2024 Platelet mean volume (Bld) [Entitic vol] 11.3 fL 6.2-12.0 [facility] Platelet countOrdered By: Yvon Morrison on 06-18-2024 Platelets (Bld) [#/Vol] 212 10*3/uL 150-450 [facility] Potassium measurement (mass/ volume)Ordered By: Tia Morrison on 06-18-2024 Potassium (Unsp spec) [Mass/Vol] 4.6 mmol/L 3.3-5.1 [facility] RBC Auto (Bld) [#/Vol]Ordere d By: Tia Morrison on 06-18-2024 RBC (Bld) [#/Vol] 3.45 10*6/uL Low 4.2-5.4 [facility] Serum creatinine measurement (mass/volume)Ordered By: Tia Morrison on 06-18-2024 Creatinine [Mass/Vol] 0.40 mg/dL Low 0.70-1.20 [facility] Serum globulin measurementOr dered By: Tia Morrison on 06-18-2024 Globulin (S) [Mass/Vol] 3.3 g/dL 2.2-4.2 [facility] Serum glucose measurement (m ass/volume)Ordered By: Tia Morrison on 06-18-2024 Glucose [Mass/Vol] 92 mg/dL 70-99 [facility] Serum or plasma alanine walden otransferase (ALT) measurementOrdered By: Tia Morrison on 06-18-2024 ALT [Catalytic activity/Vol] 26 U/L <35 [facility] Serum or plasma albumin shasha urement (mass/volume)Ordered By: Tia Morrison on 06-18-2024 Albumin [Mass/Vol] 3.5 g/dL 3.5-5.0 [facility] Serum or plasma albumin/glob ulin mass ratioOrdered By: Tia Morrison on 06-18-2024 Albumin/Globulin [Mass ratio] 1.1 {ratio} 0.9-2.4 [facility] Serum or plasma alkaline brennen sphatase measurementOrdered By: Tia Morrison on 06-18-2024 ALP [Catalytic activity/Vol] 93 U/L 35-104 [facility] Serum or plasma calcium shasha urement (mass/volume)Ordered By: Tia Morrison on 06-18-2024 Calcium [Mass/Vol] 9.8 mg/dL 7.6-11.0 [facility] Serum or plasma urea nitroge n measurement (mass/volume)Ordered By: Tia Morrison on 06-18-2024 Urea nitrogen [Mass/Vol] 18 mg/dL 4-19 [facility] Sodium levelOrdered By: Tracy Morrison on 06-18-2024 Sodium [Moles/Vol] 138 mmol/L 133-145 [facility] Total proteinOrdered By: Aure Morrison on 06-18-2024 Protein [Mass/Vol] 6.8 g/dL 5.9-8.4 [facility] White blood cell (WBC) count Ordered By: Tia Morrison on 06-18-2024 WBC (Bld) [#/Vol] 12.3 10*3/uL High 4.4-11.0 [facility] .Auto Diffon 06-14-2024 Basophil, Absolute 0.1 10 3/mcL Normal 0.0-0.3 [facility] Comment on above: Performed By: #### C BC, GFR, ANEU, BMP, ADIFF ####[facility] [place] [address] Basophils/100 WBC (Bld) 0.5 % Normal 0.0-2.5 [facility] Comment on above: Performed By: #### C BC, GFR, ANEU, BMP, ADIFF ####[address] [address] Eosinophil, Absolute 0.7 10 3/mcL Normal 0.0-0.7 [facility] Comment on above: Performed By: #### C BC, GFR, ANEU, BMP, ADIFF ####[address] [address] Eosinophils/100 WBC (Bld) 6.0 % Normal 0.0-6.0 [facility] Comment on above: Performed By: #### C BC, GFR, ANEU, BMP, ADIFF ####[address] [address] Lymphocyte, Absolute 2.6 10 3/mcL Normal 0.9-4.3 [facility] Comment on above: Performed By: #### C BC, GFR, ANEU, BMP, ADIFF ####[address] [address] Lymphocytes/100 WBC (Bld) 21.6 % Normal 20.0-40.0 [facility] Comment on above: Performed By: #### C BC, GFR, ANEU, BMP, ADIFF ####[address] [address] Monocyte, Absolute 1.1 10 3/mcL Normal 0.1-1.4 [facility] Comment on above: Performed By: #### C BC, GFR, ANEU, BMP, ADIFF ####[address] [address] Monocytes/100 WBC (Bld) 9.5 % Normal 2.0-13.0 [facility] Comment on above: Performed By: #### C BC, GFR, ANEU, BMP, ADIFF ####[address] [address] Neutrophils/100 WBC (Bld) 62.4 % Normal 50.0-75.0 [facility] Comment on above: Performed By: #### C BC, GFR, ANEU, BMP, ADIFF ####[address] [address] .GFRon 06-14-2024 GFR/1.73 sq M.predicted among non-blacks MDRD (S/P/Bld) [Vol rate/Area] mL/min/{1.73_m2} Normal [facility] Comment on above: Result Comment: [...] results. Performed By: #### C BC, GFR, ANEU, BMP, ADIFF ####[place] [address] .NEUABSon 06-14-2024 Neutrophil, Absolute 7.4 10 3/mcL Normal 2.3-8.1 [facility] Comment on above: Performed By: #### C BC, GFR, ANEU, BMP, ADIFF ####[place] [address] BMPon 06-14-2024 CO2 [Moles/Vol] mmol/L Critically abnormal 22-32 [facility] Comment on above: Performed By: #### C BC, GFR, ANEU, BMP, ADIFF ####[place] [address] Electrolyte Balance Unable to Calculate Normal 4.0-15. 0 [facility] Comment on above: Result Comment: Unab le to calculate this test result accurately. Results used to calculate this test are outside the reportable range. Performed By: #### C BC, GFR, ANEU, BMP, ADIFF ####[place] [address] BUN/Creatinine Ratio 34.8 ratio High 10.0-22.0 [facility] Comment on above: Performed By: #### C BC, GFR, ANEU, BMP, ADIFF ####[address] [address] Calcium [Mass/Vol] 9.7 mg/dL Normal 8.7-10.4 [facility] Comment on above: Performed By: #### C BC, GFR, ANEU, BMP, ADIFF ####[address] [address] Chloride [Moles/Vol] 91 mmol/L Low 98-110 [facility] Comment on above: Performed By: #### C BC, GFR, ANEU, BMP, ADIFF ####[place] [address] Creatinine [Mass/Vol] 0.46 mg/dL Low 0.50-1.20 [facility] Comment on above: Result Comment: Test ing performed on Backchat analyzer using enzymatic creatinine methodology. Performed By: #### C BC, GFR, ANEU, BMP, ADIFF ####[place] [address] Glucose [Mass/Vol] 90 mg/dL Normal 70-110 [facility] Comment on above: Performed By: #### C BC, GFR, ANEU, BMP, ADIFF ####[place] [address] Potassium [Moles/Vol] 4.2 mmol/L Normal 3.5-5.0 [facility] Comment on above: Performed By: #### C BC, GFR, ANEU, BMP, ADIFF ####[place] [id number] Sodium [Moles/Vol] 137 mmol/L Normal 136-145 [facility] Comment on above: Performed By: #### C BC, GFR, ANEU, BMP, ADIFF ####[place] [id number] Urea nitrogen [Mass/Vol] 16.0 mg/dL Normal 8.0-22.0 [facility] Comment on above: Performed By: #### C BC, GFR, ANEU, BMP, ADIFF ####[address] [address] CBCon 06-14-2024 Erythrocyte distribution width (RBC) [Ratio] 15.4 % Normal 11.5-15.5 [facility] Comment on above: Performed By: #### C BC, GFR, ANEU, BMP, ADIFF ####[place] [address] Hematocrit (Bld) [Volume fraction] 36.3 % Normal 34.0-46.0 [facility] Comment on above: Performed By: #### C BC, GFR, ANEU, BMP, ADIFF ####[place] [address] Hgb 11.9 G/dL Low 12.0-16.0 [facility] Comment on above: Performed By: #### C BC, GFR, ANEU, BMP, ADIFF ####[place] [address] MCH (RBC) [Entitic mass] 32.6 pg Normal 27.0-33.0 [facility] Comment on above: Performed By: #### C BC, GFR, ANEU, BMP, ADIFF ####[place] [address] MCHC 32.8 G/dL Normal 32.0-36.0 [facility] Comment on above: Performed By: #### C BC, GFR, ANEU, BMP, ADIFF ####[place] [address] MCV (RBC) [Entitic vol] 99.3 fL High 80.0-99.0 [facility] Comment on above: Performed By: #### C BC, GFR, ANEU, BMP, ADIFF ####[place] [address] Platelet 234 10 3/mcL Normal 150-450 [facility] Comment on above: Performed By: #### C BC, GFR, ANEU, BMP, ADIFF ####[place] [address] Platelet mean volume (Bld) [Entitic vol] 8.4 fL Normal 6.6-10.5 [facility] Comment on above: Performed By: #### C BC, GFR, ANEU, BMP, ADIFF ####[place] [id number] [place] [address] RBC 3.66 10 6/mcL Low 4.10-5.30 [facility] Comment on above: Performed By: #### C BC, GFR, ANEU, BMP, ADIFF ####[address] [address] WBC 11.9 10 3/mcL High 4.5-10.8 [facility] Comment on above: Performed By: #### C BC, GFR, ANEU, BMP, ADIFF ####[address] [address] .Auto Diffon 06-07-2024 Basophil, Absolute 0.0 10 3/mcL Normal 0.0-0.3 [facility] Comment on above: Performed By: #### C BC, ANEU, BMP, ADIFF, GFR ####[address] [address] Basophils/100 WBC (Bld) 0.2 % Normal 0.0-2.5 [facility] Comment on above: Performed By: #### C BC, ANEU, BMP, ADIFF, GFR ####[address] [address] Eosinophil, Absolute 0.5 10 3/mcL Normal 0.0-0.7 [facility] Comment on above: Performed By: #### C BC, ANEU, BMP, ADIFF, GFR ####[address] [address] Eosinophils/100 WBC (Bld) 5.0 % Normal 0.0-6.0 [facility] Comment on above: Performed By: #### C BC, ANEU, BMP, ADIFF, GFR ####[address] [address] Lymphocyte, Absolute 1.1 10 3/mcL Normal 0.9-4.3 [facility] Comment on above: Performed By: #### C BC, ANEU, BMP, ADIFF, GFR ####[address] [address] Lymphocytes/100 WBC (Bld) 11.3 % Low 20.0-40.0 [facility] Comment on above: Performed By: #### C BC, ANEU, BMP, ADIFF, GFR ####[address] [address] Monocyte, Absolute 0.9 10 3/mcL Normal 0.1-1.4 [facility] Comment on above: Performed By: #### C BC, ANEU, BMP, ADIFF, GFR ####[address] [address] Monocytes/100 WBC (Bld) 8.7 % Normal 2.0-13.0 [facility] Comment on above: Performed By: #### C BC, ANEU, BMP, ADIFF, GFR ####[address] [address] Neutrophils/100 WBC (Bld) 74.8 % Normal 50.0-75.0 [facility] Comment on above: Performed By: #### C BC, ANEU, BMP, ADIFF, GFR ####[place] [address] .GFRon 06-07-2024 GFR/1.73 sq M.predicted among non-blacks MDRD (S/P/Bld) [Vol rate/Area] mL/min/{1.73_m2} Normal [facility] Comment on above: Result Comment: [...] results. Performed By: #### C BC, ANEU, BMP, ADIFF, GFR ####[place] [address] .NEUABSon 06-07-2024 Neutrophil, Absolute 7.5 10 3/mcL Normal 2.3-8.1 [facility] Comment on above: Performed By: #### C BC, ANEU, BMP, ADIFF, GFR ####[address] [address] BMPon 06-07-2024 CO2 [Moles/Vol] mmol/L Critically abnormal 22-32 [facility] Comment on above: Performed By: #### C BC, ANEU, BMP, ADIFF, GFR ####[place] [address] Electrolyte Balance Unable to Calculate Normal 4.0-15. 0 [facility] Comment on above: Result Comment: Unab le to calculate this test result accurately. Results used to calculate this test are outside the reportable range. Performed By: #### C BC, ANEU, BMP, ADIFF, GFR ####[place] [address] BUN/Creatinine Ratio 31.4 ratio High 10.0-22.0 [facility] Comment on above: Performed By: #### C BC, ANEU, BMP, ADIFF, GFR ####[place] [address] Calcium [Mass/Vol] 9.3 mg/dL Normal 8.7-10.4 [facility] Comment on above: Performed By: #### C BC, ANEU, BMP, ADIFF, GFR ####[place] [id number] Chloride [Moles/Vol] 92 mmol/L Low 98-110 [facility] Comment on above: Performed By: #### C BC, ANEU, BMP, ADIFF, GFR ####[place] [address] Creatinine [Mass/Vol] 0.35 mg/dL Low 0.50-1.20 [facility] Comment on above: Result Comment: Test ing performed on Backchat analyzer using enzymatic creatinine methodology. Performed By: #### C BC, ANEU, BMP, ADIFF, GFR ####[address] [address] Glucose [Mass/Vol] 83 mg/dL Normal 70-110 [facility] Comment on above: Performed By: #### C BC, ANEU, BMP, ADIFF, GFR ####[place] [address] Potassium [Moles/Vol] 4.4 mmol/L Normal 3.5-5.0 [facility] Comment on above: Performed By: #### C BC, ANEU, BMP, ADIFF, GFR ####[place] [address] Sodium [Moles/Vol] 136 mmol/L Normal 136-145 [facility] Comment on above: Performed By: #### C BC, ANEU, BMP, ADIFF, GFR ####[place] [address] Urea nitrogen [Mass/Vol] 11.0 mg/dL Normal 8.0-22.0 [facility] Comment on above: Performed By: #### C BC, ANEU, BMP, ADIFF, GFR ####[place] [address] CBCon 06-07-2024 Erythrocyte distribution width (RBC) [Ratio] 15.2 % Normal 11.5-15.5 [facility] Comment on above: Performed By: #### C BC, ANEU, BMP, ADIFF, GFR ####[place] [address] Hematocrit (Bld) [Volume fraction] 35.8 % Normal 34.0-46.0 [facility] Comment on above: Performed By: #### C BC, ANEU, BMP, ADIFF, GFR ####[place] [address] Hgb 11.4 G/dL Low 12.0-16.0 [facility] Comment on above: Performed By: #### C BC, ANEU, BMP, ADIFF, GFR ####[place] [address] MCH (RBC) [Entitic mass] 31.5 pg Normal 27.0-33.0 [facility] Comment on above: Performed By: #### C BC, ANEU, BMP, ADIFF, GFR ####[address] [address] MCHC 31.9 G/dL Low 32.0-36.0 [facility] Comment on above: Performed By: #### C BC, ANEU, BMP, ADIFF, GFR ####[address] [address] MCV (RBC) [Entitic vol] 98.7 fL Normal 80.0-99.0 [facility] Comment on above: Performed By: #### C BC, ANEU, BMP, ADIFF, GFR ####[place] [address] Platelet 185 10 3/mcL Normal 150-450 [facility] Comment on above: Performed By: #### C BC, ANEU, BMP, ADIFF, GFR ####[place] [address] Platelet mean volume (Bld) [Entitic vol] 9.0 fL Normal 6.6-10.5 [facility] Comment on above: Performed By: #### C BC, ANEU, BMP, ADIFF, GFR ####[place] [address] RBC 3.63 10 6/mcL Low 4.10-5.30 [facility] Comment on above: Performed By: #### C BC, ANEU, BMP, ADIFF, GFR ####[place] [address] WBC 10.0 10 3/mcL Normal 4.5-10.8 [facility] Comment on above: Performed By: #### C BC, ANEU, BMP, ADIFF, GFR ####[place] [address] Tal 06-03-2024 OBEDN Telephone (INTMWS) SIA ABDUL ([id number]) 1980 F Date Time Provider Department 06/03/24 MARILEE THAKUR During your visit today, we recorded the following information about you: Pepper Walsh RN 06/03/2024 4:12 PM Signed Clarence Calderon calling with [facility] to update provider that due to [...] Recertification [Other] Prescriptions as of 06/03/2024 - wnelchf-zgjmcpxqp-gbei min D3 (OYSTER SHELL CALCIUM-VITAMIN D) 500 [...] 1 tablet by mouth once daily. - Jksyn-9-WAF-EPA-Fish Oil 1,000 mg (120 mg-180 mg) cap [...] included)... Normal [facility] .Auto Diffon 05-31-2024 Basophil, Absolute 0.1 10 3/mcL Normal 0.0-0.3 [facility] Comment on above: Performed By: #### G FR, BMP, ADIFF, ANEU, CBC ####[place] [id number] [place] [address] Basophils/100 WBC (Bld) 0.7 % Normal 0.0-2.5 [facility] Comment on above: Performed By: #### G FR, BMP, ADIFF, ANEU, CBC ####[place] [id number] [place] [address] Eosinophil, Absolute 0.6 10 3/mcL Normal 0.0-0.7 [facility] Comment on above: Performed By: #### G FR, BMP, ADIFF, ANEU, CBC ####[address] [address] Eosinophils/100 WBC (Bld) 5.5 % Normal 0.0-6.0 [facility] Comment on above: Performed By: #### G FR, BMP, ADIFF, ANEU, CBC ####[address] [address] Lymphocyte, Absolute 1.0 10 3/mcL Normal 0.9-4.3 [facility] Comment on above: Performed By: #### G FR, BMP, ADIFF, ANEU, CBC ####[address] [address] Lymphocytes/100 WBC (Bld) 8.9 % Low 20.0-40.0 [facility] Comment on above: Performed By: #### G FR, BMP, ADIFF, ANEU, CBC ####[address] [address] Monocyte, Absolute 1.0 10 3/mcL Normal 0.1-1.4 [facility] Comment on above: Performed By: #### G FR, BMP, ADIFF, ANEU, CBC ####[address] [address] Monocytes/100 WBC (Bld) 9.3 % Normal 2.0-13.0 [facility] Comment on above: Performed By: #### G FR, BMP, ADIFF, ANEU, CBC ####[address] [address] Neutrophils/100 WBC (Bld) 75.6 % High 50.0-75.0 [facility] Comment on above: Performed By: #### G FR, BMP, ADIFF, ANEU, CBC ####[address] [address] .GFRon 05-31-2024 GFR/1.73 sq M.predicted among non-blacks MDRD (S/P/Bld) [Vol rate/Area] mL/min/{1.73_m2} Normal [facility] Comment on above: Result Comment: [...] results. Performed By: #### G FR, BMP, ADIFF, ANEU, CBC ####[place] [address] .NEUABSon 05-31-2024 Neutrophil, Absolute 8.3 10 3/mcL High 2.3-8.1 [facility] Comment on above: Performed By: #### G FR, BMP, ADIFF, ANEU, CBC ####[place] [address] BMPon 05-31-2024 BUN/Creatinine Ratio 35.7 ratio High 10.0-22.0 [facility] Comment on above: Performed By: #### G FR, BMP, ADIFF, ANEU, CBC ####[place] [address] Creatinine [Mass/Vol] 0.42 mg/dL Low 0.50-1.20 [facility] Comment on above: Result Comment: Test ing performed on Backchat analyzer using enzymatic creatinine methodology. Performed By: #### G FR, BMP, ADIFF, ANEU, CBC ####[place] [address] CO2 [Moles/Vol] mmol/L Critically abnormal 22-32 [facility] Comment on above: Performed By: #### G FR, BMP, ADIFF, ANEU, CBC ####[place] [address] Electrolyte Balance Unable to Calculate Normal 4.0-15. 0 [facility] Comment on above: Result Comment: Unab le to calculate this test result accurately. Results used to calculate this test are outside the reportable range. Performed By: #### G FR, BMP, ADIFF, ANEU, CBC ####[address] [address] Calcium [Mass/Vol] 8.7 mg/dL Normal 8.7-10.4 [facility] Comment on above: Performed By: #### G FR, BMP, ADIFF, ANEU, CBC ####[address] [address] Chloride [Moles/Vol] 95 mmol/L Low 98-110 [facility] Comment on above: Performed By: #### G FR, BMP, ADLUKE, ANEU, CBC ####[address] [address] Glucose [Mass/Vol] 100 mg/dL Normal 70-110 [facility] Comment on above: Performed By: #### G FR, BMP, ADIFF, ANEU, CBC ####[address] [address] Potassium [Moles/Vol] 4.8 mmol/L Normal 3.5-5.0 [facility] Comment on above: Performed By: #### G FR, BMP, ADIFF, ANEU, CBC ####[address] [address] Sodium [Moles/Vol] 138 mmol/L Normal 136-145 [facility] Comment on above: Performed By: #### G FR, BMP, ADIFF, ANEU, CBC ####[address] [address] Urea nitrogen [Mass/Vol] 15.0 mg/dL Normal 8.0-22.0 [facility] Comment on above: Performed By: #### G FR, BMP, ADIFF, ANEU, CBC ####[address] [address] CBCon 05-31-2024 Erythrocyte distribution width (RBC) [Ratio] 16.3 % High 11.5-15.5 [facility] Comment on above: Performed By: #### G FR, BMP, ADIFF, ANEU, CBC ####[place] [address] Hematocrit (Bld) [Volume fraction] 33.3 % Low 34.0-46.0 [facility] Comment on above: Performed By: #### G FR, BMP, ADIFF, ANEU, CBC ####[place] [address] Hgb 10.6 G/dL Low 12.0-16.0 [facility] Comment on above: Performed By: #### G FR, BMP, ADIFF, ANEU, CBC ####[place] [address] MCH (RBC) [Entitic mass] 32.6 pg Normal 27.0-33.0 [facility] Comment on above: Performed By: #### G FR, BMP, ADIFF, ANEU, CBC ####[place] [address] MCHC 31.9 G/dL Low 32.0-36.0 [facility] Comment on above: Performed By: #### G FR, BMP, ADIFF, ANEU, CBC ####[place] [address] MCV (RBC) [Entitic vol] 102.1 fL High 80.0-99.0 [facility] Comment on above: Performed By: #### G FR, BMP, ADIFF, ANEU, CBC ####[place] [address] Platelet 177 10 3/mcL Normal 150-450 [facility] Comment on above: Performed By: #### G FR, BMP, ADIFF, ANEU, CBC ####[place] [address] Platelet mean volume (Bld) [Entitic vol] 9.0 fL Normal 6.6-10.5 [facility] Comment on above: Performed By: #### G FR, BMP, ADIFF, ANEU, CBC ####[place] [address] RBC 3.26 10 6/mcL Low 4.10-5.30 [facility] Comment on above: Performed By: #### G FR, BMP, ADIFF, ANEU, CBC ####[address] [address] WBC 11.0 10 3/mcL High 4.5-10.8 [facility] Comment on above: Performed By: #### G FR, BMP, ADIFF, ANEU, CBC ####[address] [address] .Auto Diffon 05-30-2024 Basophil, Absolute 0.1 10 3/mcL Normal 0.0-0.3 [facility] Comment on above: Performed By: #### A DAISY, MG, GFR, CBC, BMP, ADIFF, VBG ####[address] [address] Basophils/100 WBC (Bld) 0.8 % Normal 0.0-2.5 [facility] Comment on above: Performed By: #### A DAISY, MG, GFR, CBC, BMP, ADIFF, VBG ####[address] [address] Eosinophil, Absolute 0.5 10 3/mcL Normal 0.0-0.7 [facility] Comment on above: Performed By: #### A DAISY, MG, GFR, CBC, BMP, ADIFF, VBG ####[address] [address] Eosinophils/100 WBC (Bld) 4.2 % Normal 0.0-6.0 [facility] Comment on above: Performed By: #### A DAISY, MG, GFR, CBC, BMP, ADIFF, VBG ####[address] [address] Lymphocyte, Absolute 1.4 10 3/mcL Normal 0.9-4.3 [facility] Comment on above: Performed By: #### A DAISY, MG, GFR, CBC, BMP, ADIFF, VBG ####[address] [address] Lymphocytes/100 WBC (Bld) 12.4 % Low 20.0-40.0 [facility] Comment on above: Performed By: #### A DAISY, MG, GFR, CBC, BMP, ADIFF, VBG ####[address] [address] Monocyte, Absolute 1.1 10 3/mcL Normal 0.1-1.4 [facility] Comment on above: Performed By: #### A DAISY, MG, GFR, CBC, BMP, ADIFF, VBG ####[address] [address] Monocytes/100 WBC (Bld) 9.2 % Normal 2.0-13.0 [facility] Comment on above: Performed By: #### A DAISY, MG, GFR, CBC, BMP, ADIFF, VBG ####[address] [address] Neutrophils/100 WBC (Bld) 73.4 % Normal 50.0-75.0 [facility] Comment on above: Performed By: #### A DAISY, MG, GFR, CBC, BMP, ADIFF, VBG ####[address] [address] .GFRon 05-30-2024 GFR/1.73 sq M.predicted among non-blacks MDRD (S/P/Bld) [Vol rate/Area] mL/min/{1.73_m2} Normal [facility] Comment on above: Result Comment: [...] theeGFR results. Performed By: #### A DAISY, MG, GFR, CBC, BMP, ADIFF, VBG ####[address] [address] .NEUABSon 05-30-2024 Neutrophil, Absolute 8.4 10 3/mcL High 2.3-8.1 [facility] Comment on above: Performed By: #### A DAISY, MG, GFR, CBC, BMP, ADIFF, VBG ####[address] [address] BMPon 05-30-2024 BUN/Creatinine Ratio 26.5 ratio High 10.0-22.0 [facility] Comment on above: Performed By: #### A DAISY, MG, GFR, CBC, BMP, ADIFF, VBG ####[address] [address] Calcium [Mass/Vol] 9.0 mg/dL Normal 8.7-10.4 [facility] Comment on above: Performed By: #### A DAISY, MG, GFR, CBC, BMP, ADIFF, VBG ####[place] [address] Chloride [Moles/Vol] 97 mmol/L Low 98-110 [facility] Comment on above: Performed By: #### A DAISY, MG, GFR, CBC, BMP, ADIFF, VBG ####[place] [address] CO2 [Moles/Vol] 40 mmol/L Critically abnormal 22-32 [facility] Comment on above: Performed By: #### A DAISY, MG, GFR, CBC, BMP, ADIFF, VBG ####[place] [address] Creatinine [Mass/Vol] 0.49 mg/dL Low 0.50-1.20 [facility] Comment on above: Result Comment: Test ing performed on Backchat analyzer using enzymatic creatinine methodology. Performed By: #### A DAISY, MG, GFR, CBC, BMP, ADIFF, VBG ####[place] [address] Electrolyte Balance 1.0 mEq/L Low 4.0-15.0 [facility] Comment on above: Performed By: #### A DAISY, MG, GFR, CBC, BMP, ADIFF, VBG ####[address] [address] Glucose [Mass/Vol] 93 mg/dL Normal 70-110 [facility] Comment on above: Performed By: #### A DAISY, MG, GFR, CBC, BMP, ADIFF, VBG ####[place] [id number] Potassium [Moles/Vol] 4.7 mmol/L Normal 3.5-5.0 [facility] Comment on above: Performed By: #### A DAISY, MG, GFR, CBC, BMP, ADIFF, VBG ####[place] [phone] Sodium [Moles/Vol] 138 mmol/L Normal 136-145 [facility] Comment on above: Performed By: #### A DAISY, MG, GFR, CBC, BMP, ADIFF, VBG ####[place] [phone] Urea nitrogen [Mass/Vol] 13.0 mg/dL Normal 8.0-22.0 [facility] Comment on above: Performed By: #### A DAISY, MG, GFR, CBC, BMP, ADIFF, VBG ####[place] [phone] CBCon 05-30-2024 Erythrocyte distribution width (RBC) [Ratio] 16.2 % High 11.5-15.5 [facility] Comment on above: Order Comment: clott ed, recollect Performed By: #### A DAISY, MG, GFR, CBC, BMP, ADIFF, VBG ####[place] [phone] Hematocrit (Bld) [Volume fraction] 33.4 % Low 34.0-46.0 [facility] Comment on above: Order Comment: clott ed, recollect Performed By: #### A DAISY, MG, GFR, CBC, BMP, ADIFF, VBG ####[place] [phone] Hgb 10.5 G/dL Low 12.0-16.0 [facility] Comment on above: Order Comment: clott ed, recollect Performed By: #### A DAISY, MG, GFR, CBC, BMP, ADIFF, VBG ####[place] [address] MCH (RBC) [Entitic mass] 32.5 pg Normal 27.0-33.0 [facility] Comment on above: Order Comment: clott ed, recollect Performed By: #### A DAISY, MG, GFR, CBC, BMP, ADIFF, VBG ####[place] [address] MCHC 31.4 G/dL Low 32.0-36.0 [facility] Comment on above: Order Comment: clott ed, recollect Performed By: #### A DAISY, MG, GFR, CBC, BMP, ADIFF, VBG ####[place] [address] MCV (RBC) [Entitic vol] 103.5 fL High 80.0-99.0 [facility] Comment on above: Order Comment: clott ed, recollect Performed By: #### A DAISY, MG, GFR, CBC, BMP, ADIFF, VBG ####[place] [address] Platelet 161 10 3/mcL Normal 150-450 [facility] Comment on above: Order Comment: clott ed, recollect Performed By: #### A DAISY, MG, GFR, CBC, BMP, ADIFF, VBG ####[place] [address] Platelet mean volume (Bld) [Entitic vol] 9.4 fL Normal 6.6-10.5 [facility] Comment on above: Order Comment: clott ed, recollect Performed By: #### A DAISY, MG, GFR, CBC, BMP, ADIFF, VBG ####[place] [address] RBC 3.23 10 6/mcL Low 4.10-5.30 [facility] Comment on above: Order Comment: clott ed, recollect Performed By: #### A DAISY, MG, GFR, CBC, BMP, ADIFF, VBG ####[place] [address] WBC 11.4 10 3/mcL High 4.5-10.8 [facility] Comment on above: Order Comment: clott ed, recollect Performed By: #### A DAISY, MG, GFR, CBC, BMP, ADIFF, VBG ####[facility] [place] [id number] LABORATORYOrdered By: SYSTEM SYSTEM on 05-30-2024 Basophils [...] 9.4 fL Normal 6.6 - 10.5 fL AH Workflow SS Platelets (Bld) [#/Vol] 161 103/mcL Normal 150 - 450 10^3/mcL AH Workflow SS RBC (Bld) [#/Vol] 3.23 106/mcL Low 4.10 - 5.3 0 10^6/mcL AH Workflow SS WBC (Bld) [#/Vol] 11.4 103/mcL High 4.5 - 10.8 10^3/mcL AH Workflow SS Calcium [Mass/Vol] 9.0 mg/dL Normal 8.7 - 10. 4 mg/dL AH ADM SS Chloride [Moles/Vol] 97 mmol/L Low 98 - 11 0 mEq/L AH ADM SS CO2 [Moles/Vol] 40 mmol/L Invalid Interpretation Code 22 - 32 mEq/L AH ADM SS Creatinine [Mass/Vol] 0.49 mg/dL Low 0.50 - 1.20 mg/dL AH ADM SS Comment on above: Interpretive Data: T esting performed on Backchat analyzer using enzymatic creatinine methodology. Electrolyte Balance 1.0 mEq/L Low 4.0 - 15 .0 mEq/L AH ADM SS Estimated Glomerular Filtration Rate ml/min/1.73sqm [...] 4.7 mmol/L Normal 3.5 - 5.0 mEq/L ADM SS Sodium [Moles/Vol] 138 mmol/L Normal 136 - 145 mEq/L ADM SS Urea nitrogen [Mass/Vol] 13.0 mg/dL Normal 8.0 - 22.0 mg/dL ADM SS Urea nitrogen/Creatinine [Mass ratio] 26.5 ratio High 10.0 - 22.0 ratio AH ADM SS LABORATORYOrdered By: Shaunna Culp on 05-30-2024 BE Venous 14.4 mmol/L High -3.0 - 3.0 mmol/L Main Rapid Comm SS CO2 [Moles/Vol] 47.4 mmol/L Invalid Interpretation Code 22.0 - 32.0 mmol/L AH Main Rapid Comm SS HCO3 (Bld) [Moles/Vol] 44.5 mmol/L High 21.0 - 30.0 mmol/L Main Rapid Comm SS pCO2 Satish 94.5 mm[Hg] High 41.0 - 51.0 mm Hg Main Rapid Comm SS pH (Bld) 7.291 [pH] Low 7.380 - 7.460 AH Main Rapid Comm SS pO2 Satish 69.4 mm[Hg] High 35.0 - 40.0 mm Hg Main Rapid Comm SS MGon 05-30-2024 Magnesium [Mass/Vol] 1.9 mg/dL Normal 1.6-2.4 [facility] Comment on above: Performed By: #### A DAISY, MG, GFR, CBC, BMP, ADIFF, VBG ####[address] [address] VBGon 05-30-2024 BE Venous 14.4 mmol/L High -3.0-3.0 [facility] Comment on above: Order Comment: vrb- called critical TCO2 to RODRÍGUEZ Desai 05/30/2024 04:02:46 EDT SAS Performed By: #### A DAISY, MG, GFR, CBC, BMP, ADIFF, VBG ####[place] [address] CO2 [Moles/Vol] 47.4 mmol/L Critically abnormal 22.0-32.0 [facility] Comment on above: Order Comment: vrb- called critical TCO2 to RODRÍGUEZ Desai 05/30/2024 04:02:46 EDT SAS Performed By: #### A DAISY, MG, GFR, CBC, BMP, ADIFF, VBG ####[address] [address] HCO3 (Bld) [Moles/Vol] 44.5 mmol/L High 21.0-30.0 [facility] Comment on above: Order Comment: vrb- called critical TCO2 to RN Kody Desai 05/30/2024 04:02:46 EDT SAS Performed By: #### A DAISY, MG, GFR, CBC, BMP, ADIFF, VBG ####[place] [address] Oxygen saturation in Blood 92.0 % High 70.0-75.0 [facility] Comment on above: Order Comment: vrb- called critical TCO2 to RN Kody Desai 05/30/2024 04:02:46 EDT SAS Performed By: #### A DAISY, MG, GFR, CBC, BMP, ADIFF, VBG ####[place] [address] pCO2 Satish 94.5 mmHg High 41.0-51.0 [facility] Comment on above: Order Comment: vrb- called critical TCO2 to RN Kody Desai 05/30/2024 04:02:46 EDT SAS Performed By: #### A DAISY, MG, GFR, CBC, BMP, ADIFF, VBG ####[address] [address] pH Venous 7.291 Low 7.380-7.460 [facility] Comment on above: Order Comment: vrb- called critical TCO2 to RN Kody Desai 05/30/2024 04:02:46 EDT SAS Performed By: #### A DAISY, MG, GFR, CBC, BMP, ADIFF, VBG ####[address] [address] pO2 Satish 69.4 mmHg High 35.0-40.0 [facility] Comment on above: Order Comment: vrb- called critical TCO2 to RN Kody Desai 05/30/2024 04:02:46 EDT SAS Performed By: #### A DAISY, MG, GFR, CBC, BMP, ADIFF, VBG ####[address] [address] XR CHEST 1 VIEWon 05-30-2024 XR CHEST 1 VIEW Normal [facility] .Auto Diffon 05-29-2024 Basophil, Absolute 0.1 10 3/mcL Normal 0.0-0.3 [facility] Comment on above: Performed By: #### C BC, ADIFF, ANEU, GFR, MG, BMP ####[address] [address] Basophils/100 WBC (Bld) 0.9 % Normal 0.0-2.5 [facility] Comment on above: Performed By: #### C BC, ADIFF, ANEU, GFR, MG, BMP ####[address] [address] Eosinophil, Absolute 0.7 10 3/mcL Normal 0.0-0.7 [facility] Comment on above: Performed By: #### C BC, ADIFF, ANEU, GFR, MG, BMP ####[address] [address] Eosinophils/100 WBC (Bld) 5.3 % Normal 0.0-6.0 [facility] Comment on above: Performed By: #### C BC, ADIFF, ANEU, GFR, MG, BMP ####[address] [address] Lymphocyte, Absolute 2.0 10 3/mcL Normal 0.9-4.3 [facility] Comment on above: Performed By: #### C BC, ADIFF, ANEU, GFR, MG, BMP ####[address] [address] Lymphocytes/100 WBC (Bld) 16.0 % Low 20.0-40.0 [facility] Comment on above: Performed By: #### C BC, ADIFF, ANEU, GFR, MG, BMP ####[address] [address] Monocyte, Absolute 1.2 10 3/mcL Normal 0.1-1.4 [facility] Comment on above: Performed By: #### C BC, ADIFF, ANEU, GFR, MG, BMP ####[address] [address] Monocytes/100 WBC (Bld) 9.8 % Normal 2.0-13.0 [facility] Comment on above: Performed By: #### C BC, ADIFF, ANEU, GFR, MG, BMP ####[address] [address] Neutrophils/100 WBC (Bld) 68.0 % Normal 50.0-75.0 [facility] Comment on above: Performed By: #### C BC, ADIFF, ANEU, GFR, MG, BMP ####[place] [address] .GFRon 05-29-2024 GFR/1.73 sq M.predicted among non-blacks MDRD (S/P/Bld) [Vol rate/Area] mL/min/{1.73_m2} Normal [facility] Comment on above: Result Comment: [...] theeGFR results. Performed By: #### C BC, ADIFF, ANEU, GFR, MG, BMP ####[place] [address] .NEUABSon 05-29-2024 Neutrophil, Absolute 8.4 10 3/mcL High 2.3-8.1 [facility] Comment on above: Performed By: #### C BC, ADIFF, ANEU, GFR, MG, BMP ####[place] [address] BMPon 05-29-2024 BUN/Creatinine Ratio 29.8 ratio High 10.0-22.0 [facility] Comment on above: Performed By: #### C BC, ADIFF, ANEU, GFR, MG, BMP ####[place] [address] Calcium [Mass/Vol] 9.2 mg/dL Normal 8.7-10.4 [facility] Comment on above: Performed By: #### C BC, ADIFF, ANEU, GFR, MG, BMP ####[place] [address] Chloride [Moles/Vol] 97 mmol/L Low 98-110 [facility] Comment on above: Performed By: #### C BC, ADIFF, ANEU, GFR, MG, BMP ####[place] [address] CO2 [Moles/Vol] 37 mmol/L High 22-32 [facility] Comment on above: Performed By: #### C BC, ADIFF, ANEU, GFR, MG, BMP ####[place] [address] Creatinine [Mass/Vol] 0.47 mg/dL Low 0.50-1.20 [facility] Comment on above: Result Comment: Test ing performed on Backchat analyzer using enzymatic creatinine methodology. Performed By: #### C BC, ADIFF, ANEU, GFR, MG, BMP ####[place] [address] Electrolyte Balance 5.0 mEq/L Normal 4.0-15.0 [facility] Comment on above: Performed By: #### C BC, ADIFF, ANEU, GFR, MG, BMP ####[place] [id number] Glucose [Mass/Vol] 88 mg/dL Normal 70-110 [facility] Comment on above: Performed By: #### C BC, ADIFF, ANEU, GFR, MG, BMP ####[place] [address] Potassium [Moles/Vol] 5.3 mmol/L High 3.5-5.0 [facility] Comment on above: Result Comment: Spec imen slightly hemolyzed. Performed By: #### C BC, ADIFF, ANEU, GFR, MG, BMP ####[place] [address] Sodium [Moles/Vol] 139 mmol/L Normal 136-145 [facility] Comment on above: Performed By: #### C BC, ADIFF, ANEU, GFR, MG, BMP ####[place] [address] Urea nitrogen [Mass/Vol] 14.0 mg/dL Normal 8.0-22.0 [facility] Comment on above: Performed By: #### C BC, ADIFF, ANEU, GFR, MG, BMP ####[place] [address] CBCon 05-29-2024 Erythrocyte distribution width (RBC) [Ratio] 16.9 % High 11.5-15.5 [facility] Comment on above: Performed By: #### C BC, ADIFF, ANEU, GFR, MG, BMP ####[place] [address] Hematocrit (Bld) [Volume fraction] 31.9 % Low 34.0-46.0 [facility] Comment on above: Performed By: #### C BC, ADIFF, ANEU, GFR, MG, BMP ####[place] [address] Hgb 10.1 G/dL Low 12.0-16.0 [facility] Comment on above: Performed By: #### C BC, ADIFF, ANEU, GFR, MG, BMP ####[place] [address] MCH (RBC) [Entitic mass] 32.9 pg Normal 27.0-33.0 [facility] Comment on above: Performed By: #### C BC, ADIFF, ANEU, GFR, MG, BMP ####[place] [address] MCHC 31.7 G/dL Low 32.0-36.0 [facility] Comment on above: Performed By: #### C BC, ADIFF, ANEU, GFR, MG, BMP ####[place] [address] MCV (RBC) [Entitic vol] 103.8 fL High 80.0-99.0 [facility] Comment on above: Performed By: #### C BC, ADIFF, ANEU, GFR, MG, BMP ####[place] [address] Platelet 173 10 3/mcL Normal 150-450 [facility] Comment on above: Performed By: #### C BC, ADIFF, ANEU, GFR, MG, BMP ####[place] [address] Platelet mean volume (Bld) [Entitic vol] 10.1 fL Normal 6.6-10.5 [facility] Comment on above: Performed By: #### C BC, ADIFF, ANEU, GFR, MG, BMP ####[place] [address] RBC 3.07 10 6/mcL Low 4.10-5.30 [facility] Comment on above: Performed By: #### C BC, ADIFF, ANEU, GFR, MG, BMP ####[place] [address] WBC 12.4 10 3/mcL High 4.5-10.8 [facility] Comment on above: Performed By: #### C BC, ADIFF, ANEU, GFR, MG, BMP ####[place] [address] LABORATORYOrdered By: SYSTEM SYSTEM on 05-29-2024 Basophils (Bld) [#/Vol] 0.1 103/mcL Normal 0.0 - 0.3 10^3/mcL AH Workflow SS Basophils/100 WBC (Bld) 0.9 % Normal 0.0 - 2.5 % AH Workflow SS Calcium [Mass/Vol] 9.2 mg/dL Normal 8.7 - 10. 4 mg/dL AH ADM SS Chloride [Moles/Vol] 97 mmol/L Low 98 - 11 0 mEq/L AH ADM SS CO2 [Moles/Vol] 37 mmol/L High 22 - 32 mEq/L AH ADM SS Creatinine [Mass/Vol] 0.47 mg/dL Low 0.50 - 1.20 mg/dL ADM SS Comment on above: Interpretive Data: T esting performed on Backchat analyzer using enzymatic creatinine methodology. Electrolyte Balance [...] 16.0 G/dL Workflow SS Lymphocytes (Bld) [#/Vol] 2.0 103/mcL Normal 0.9 - 4.3 10^3/mcL Workflow SS Lymphocytes/100 WBC (Bld) 16.0 % Low 20.0 - 40.0 % Workflow SS Magnesium [Mass/Vol] 2.0 mg/dL Normal 1.6 - 2 .4 mg/dL ADM SS MCH (RBC) [Entitic mass] 32.9 [...] 5.3 mmol/L High 3.5 - 5.0 mEq/L ADM SS Comment on above: Result Comment: Spec imen slightly hemolyzed. RBC (Bld) [#/Vol] 3.07 106/mcL Low 4.10 - 5.3 0 10^6/mcL Workflow SS Sodium [Moles/Vol] 139 mmol/L Normal 136 - 145 mEq/L ADM SS Urea nitrogen [Mass/Vol] 14.0 mg/dL Normal 8.0 - 22.0 mg/dL ADM SS Urea nitrogen/Creatinine [Mass ratio] 29.8 ratio High 10.0 - 22.0 ratio ADM SS WBC (Bld) [#/Vol] 12.4 103/mcL High 4.5 - 10.8 10^3/mcL Workflow SS MGon 05-29-2024 Magnesium [Mass/Vol] 2.0 mg/dL Normal 1.6-2.4 [facility] Comment on above: Performed By: #### C BC, ADIFF, ANEU, GFR, MG, BMP ####[place] [address] .Auto Diffon 05-28-2024 Basophil, Absolute 0.0 10 3/mcL Normal 0.0-0.3 [facility] Comment on above: Performed By: #### B MP, ANEU, VBG, GFR, ADIFF, MG, CBC ####[address] [address] Basophils/100 WBC (Bld) 0.4 % Normal 0.0-2.5 [facility] Comment on above: Performed By: #### B MP, ANEU, VBG, GFR, ADIFF, MG, CBC ####[address] [address] Eosinophil, Absolute 0.6 10 3/mcL Normal 0.0-0.7 [facility] Comment on above: Performed By: #### B MP, ANEU, VBG, GFR, ADIFF, MG, CBC ####[address] [address] Eosinophils/100 WBC (Bld) 5.6 % Normal 0.0-6.0 [facility] Comment on above: Performed By: #### B MP, ANEU, VBG, GFR, ADIFF, MG, CBC ####[address] [address] Lymphocyte, Absolute 1.2 10 3/mcL Normal 0.9-4.3 [facility] Comment on above: Performed By: #### B MP, ANEU, VBG, GFR, ADIFF, MG, CBC ####[address] [address] Lymphocytes/100 WBC (Bld) 11.7 % Low 20.0-40.0 [facility] Comment on above: Performed By: #### B MP, ANEU, VBG, GFR, ADIFF, MG, CBC ####[address] [address] Monocyte, Absolute 0.9 10 3/mcL Normal 0.1-1.4 [facility] Comment on above: Performed By: #### B MP, ANEU, VBG, GFR, ADIFF, MG, CBC ####[address] [address] Monocytes/100 WBC (Bld) 8.2 % Normal 2.0-13.0 [facility] Comment on above: Performed By: #### B MP, ANEU, VBG, GFR, ADIFF, MG, CBC ####[address] [address] Neutrophils/100 WBC (Bld) 74.1 % Normal 50.0-75.0 [facility] Comment on above: Performed By: #### B MP, ANEU, VBG, GFR, ADIFF, MG, CBC ####[place] [address] .GFRon 05-28-2024 Estimated Glomerular Filtration Rate 115 ml/min/1.73sqm Normal [facility] Comment on above: Result Comment: [...] results. Performed By: #### B MP, ANEU, VBG, GFR, ADIFF, MG, CBC ####[address] [address] .NEUABSon 05-28-2024 Neutrophil, Absolute 7.7 10 3/mcL Normal 2.3-8.1 [facility] Comment on above: Performed By: #### B MP, ANEU, VBG, GFR, ADIFF, MG, CBC ####[address] [address] BMPon 05-28-2024 CO2 [Moles/Vol] mmol/L Critically abnormal 22-32 [facility] Comment on above: Performed By: #### B MP, ANEU, VBG, GFR, ADIFF, MG, CBC ####[place] [address] Electrolyte Balance Unable to Calculate Normal 4.0-15. 0 [facility] Comment on above: Result Comment: Unab le to calculate this test result accurately. Results used to calculate this test are outside the reportable range. Performed By: #### B MP, ANEU, VBG, GFR, ADIFF, MG, CBC ####[place] [address] BUN/Creatinine Ratio 36.1 ratio High 10.0-22.0 [facility] Comment on above: Performed By: #### B MP, ANEU, VBG, GFR, ADIFF, MG, CBC ####[address] [address] Calcium [Mass/Vol] 9.1 mg/dL Normal 8.7-10.4 [facility] Comment on above: Performed By: #### B MP, ANEU, VBG, GFR, ADIFF, MG, CBC ####[place] [id number] Chloride [Moles/Vol] 98 mmol/L Normal 98-110 [facility] Comment on above: Performed By: #### B MP, ANEU, VBG, GFR, ADIFF, MG, CBC ####[place] [id number] Creatinine [Mass/Vol] 0.61 mg/dL Normal 0.50-1.20 [facility] Comment on above: Result Comment: Test ing performed on Backchat analyzer using enzymatic creatinine methodology. Performed By: #### B MP, ANEU, VBG, GFR, ADIFF, MG, CBC ####[place] [address] Glucose [Mass/Vol] 112 mg/dL High 70-110 [facility] Comment on above: Performed By: #### B MP, ANEU, VBG, GFR, ADIFF, MG, CBC ####[address] [address] Potassium [Moles/Vol] 4.6 mmol/L Normal 3.5-5.0 [facility] Comment on above: Result Comment: Spec imen slightly hemolyzed. Performed By: #### B MP, ANEU, VBG, GFR, ADIFF, MG, CBC ####[place] [address] Sodium [Moles/Vol] 144 mmol/L Normal 136-145 [facility] Comment on above: Performed By: #### B MP, ANEU, VBG, GFR, ADIFF, MG, CBC ####[place] [address] Urea nitrogen [Mass/Vol] 22.0 mg/dL Normal 8.0-22.0 [facility] Comment on above: Performed By: #### B MP, ANEU, VBG, GFR, ADIFF, MG, CBC ####[place] [address] CBCon 05-28-2024 Erythrocyte distribution width (RBC) [Ratio] 16.0 % High 11.5-15.5 [facility] Comment on above: Performed By: #### B MP, ANEU, VBG, GFR, ADIFF, MG, CBC ####[place] [address] Hematocrit (Bld) [Volume fraction] 31.4 % Low 34.0-46.0 [facility] Comment on above: Performed By: #### B MP, ANEU, VBG, GFR, ADIFF, MG, CBC ####[place] [address] Hgb 10.1 G/dL Low 12.0-16.0 [facility] Comment on above: Performed By: #### B MP, ANEU, VBG, GFR, ADIFF, MG, CBC ####[place] [address] MCH (RBC) [Entitic mass] 32.6 pg Normal 27.0-33.0 [facility] Comment on above: Performed By: #### B MP, ANEU, VBG, GFR, ADIFF, MG, CBC ####[place] [address] MCHC 32.1 G/dL Normal 32.0-36.0 [facility] Comment on above: Performed By: #### B MP, ANEU, VBG, GFR, ADIFF, MG, CBC ####[place] [address] MCV (RBC) [Entitic vol] 101.4 fL High 80.0-99.0 [facility] Comment on above: Performed By: #### B MP, ANEU, VBG, GFR, ADIFF, MG, CBC ####[place] [address] Platelet 171 10 3/mcL Normal 150-450 [facility] Comment on above: Performed By: #### B MP, ANEU, VBG, GFR, ADIFF, MG, CBC ####[place] [address] Platelet mean volume (Bld) [Entitic vol] 9.3 fL Normal 6.6-10.5 [facility] Comment on above: Performed By: #### B MP, ANEU, VBG, GFR, ADIFF, MG, CBC ####[place] [address] RBC 3.10 10 6/mcL Low 4.10-5.30 [facility] Comment on above: Performed By: #### B MP, ANEU, VBG, GFR, ADIFF, MG, CBC ####[place] [address] WBC 10.4 10 3/mcL Normal 4.5-10.8 [facility] Comment on above: Performed By: #### B MP, ANEU, VBG, GFR, ADIFF, MG, CBC ####[place] [address] LABORATORYOrdered By: SYSTEM SYSTEM on 05-28-2024 Basophils (Bld) [#/Vol] 0.0 103/mcL Normal 0.0 - 0.3 10^3/mcL AH Workflow SS Basophils/100 WBC (Bld) 0.4 % Normal 0.0 - 2.5 % AH Workflow SS Calcium [Mass/Vol] 9.1 mg/dL Normal 8.7 - 10. 4 mg/dL AH ADM SS Chloride [Moles/Vol] 98 mmol/L Normal 98 - 11 0 mEq/L AH ADM SS Creatinine [Mass/Vol] 0.61 mg/dL Normal 0.50 - 1.20 mg/dL ADM SS Comment on above: Interpretive Data: T esting performed on [employer] analyzer using enzymatic creatinine methodology. Eosinophils (Bld) [...] mg/dL Normal 1.6 - 2 .4 mg/dL ADM SS MCH (RBC) [Entitic mass] 32.6 pg Normal 27.0 - 33.0 pg Workflow SS MCHC 32.1 G/dL Normal 32.0 - 36.0 G/dL Workflow SS MCV (RBC) [Entitic vol] 101.4 [...] 144 mmol/L Normal 136 - 145 mEq/L AH ADM SS Urea nitrogen [Mass/Vol] 22.0 mg/dL [...] 43.9 mmol/L High 21.0 - 30.0 mmol/L AH Main Rapid Comm SS pCO2 Satish 95.9 mm[Hg] High 41.0 - 51.0 mm Hg Main Rapid Comm SS pH (Bld) 7.279 [pH] Low 7.380 - 7.460 Main Rapid Comm SS pO2 Satish 76.3 mm[Hg] High 35.0 - 40.0 mm Hg Main Rapid Comm SS LABORATORYOrdered By: Nasra Manzano on 05-28-2024 CO2 [Moles/Vol] mEq/L Invalid Interpretation Code 22 - 32 mEq/L AH Chemistry S Comment on above: Result Comment: read back by alvina jaramillo rn Electrolyte Balance Unable to Calculate Invalid Interpretation Code 4.0 - 15.0 Chemistry S Comment on above: Result Comment: Unab le to calculate this test result accurately. Results used to calculate this test are outside the reportable range. MGon 05-28-2024 Magnesium [Mass/Vol] 1.9 mg/dL Normal 1.6-2.4 [facility] Comment on above: Performed By: #### B MP, ANEU, VBG, GFR, ADIFF, MG, CBC ####[address] [address] VBGon 05-28-2024 BE Venous 13.8 mmol/L High -3.0-3.0 [facility] Comment on above: Performed By: #### B MP, ANEU, VBG, GFR, ADIFF, MG, CBC ####[address] [address] CO2 [Moles/Vol] 46.9 mmol/L Critically abnormal 22.0-32.0 [facility] Comment on above: Performed By: #### B MP, ANEU, VBG, GFR, ADIFF, MG, CBC ####[address] [address] HCO3 (Bld) [Moles/Vol] 43.9 mmol/L High 21.0-30.0 [facility] Comment on above: Performed By: #### B MP, ANEU, VBG, GFR, ADIFF, MG, CBC ####[place] [address] Oxygen saturation in Blood 93.4 % High 70.0-75.0 [facility] Comment on above: Performed By: #### B MP, ANEU, VBG, GFR, ADIFF, MG, CBC ####[address] [address] pCO2 Satish 95.9 mmHg High 41.0-51.0 [facility] Comment on above: Performed By: #### B MP, ANEU, VBG, GFR, ADIFF, MG, CBC ####[place] [address] pH Venous 7.279 Low 7.380-7.460 [facility] Comment on above: Performed By: #### B MP, ANEU, VBG, GFR, ADIFF, MG, CBC ####[place] [address] pO2 Satish 76.3 mmHg High 35.0-40.0 [facility] Comment on above: Performed By: #### B MP, ANEU, VBG, GFR, ADIFF, MG, CBC ####[place] [address] .Auto Diffon 05-27-2024 Basophil, Absolute 0.1 10 3/mcL Normal 0.0-0.3 [facility] Comment on above: Performed By: #### M G, ANEU, CBC, ADIFF, GFR, BMP ####[place] [address] Basophils/100 WBC (Bld) 0.8 % Normal 0.0-2.5 [facility] Comment on above: Performed By: #### M G, ANEU, CBC, ADIFF, GFR, BMP ####[address] [address] Eosinophil, Absolute 0.6 10 3/mcL Normal 0.0-0.7 [facility] Comment on above: Performed By: #### M G, ANEU, CBC, ADIFF, GFR, BMP ####[place] [address] Eosinophils/100 WBC (Bld) 5.9 % Normal 0.0-6.0 [facility] Comment on above: Performed By: #### M G, ANEU, CBC, ADIFF, GFR, BMP ####[place] [address] Lymphocyte, Absolute 1.5 10 3/mcL Normal 0.9-4.3 [facility] Comment on above: Performed By: #### M G, ANEU, CBC, ADIFF, GFR, BMP ####[place] [id number] [place] [address] Lymphocytes/100 WBC (Bld) 15.4 % Low 20.0-40.0 [facility] Comment on above: Performed By: #### M G, ANEU, CBC, ADIFF, GFR, BMP ####[address] [address] Monocyte, Absolute 0.9 10 3/mcL Normal 0.1-1.4 [facility] Comment on above: Performed By: #### M G, ANEU, CBC, ADIFF, GFR, BMP ####[address] [address] Monocytes/100 WBC (Bld) 9.5 % Normal 2.0-13.0 [facility] Comment on above: Performed By: #### M G, ANEU, CBC, ADIFF, GFR, BMP ####[address] [address] Neutrophils/100 WBC (Bld) 68.4 % Normal 50.0-75.0 [facility] Comment on above: Performed By: #### M G, ANEU, CBC, ADIFF, GFR, BMP ####[address] [address] .GFRon 05-27-2024 Estimated Glomerular Filtration Rate 119 ml/min/1.73sqm Normal [facility] Comment on above: Result Comment: [...] results. Performed By: #### M G, ANEU, CBC, ADIFF, GFR, BMP ####[place] [id number] .NEUABSon 05-27-2024 Neutrophil, Absolute 6.7 10 3/mcL Normal 2.3-8.1 [facility] Comment on above: Performed By: #### M G, ANEU, CBC, ADIFF, GFR, BMP ####[place] [address] BMPon 05-27-2024 CO2 [Moles/Vol] mmol/L Critically abnormal 22-32 [facility] Comment on above: Performed By: #### M G, ANEU, CBC, ADIFF, GFR, BMP ####[place] [address] Electrolyte Balance Unable to Calculate Normal 4.0-15. 0 [facility] Comment on above: Result Comment: Unab le to calculate this test result accurately. Results used to calculate this test are outside the reportable range. Performed By: #### M G, ANEU, CBC, ADIFF, GFR, BMP ####[place] [address] BUN/Creatinine Ratio 37.7 ratio High 10.0-22.0 [facility] Comment on above: Performed By: #### M G, ANEU, CBC, ADIFF, GFR, BMP ####[place] [address] Calcium [Mass/Vol] 8.6 mg/dL Low 8.7-10.4 [facility] Comment on above: Performed By: #### M G, ANEU, CBC, ADIFF, GFR, BMP ####[place] [address] Chloride [Moles/Vol] 96 mmol/L Low 98-110 [facility] Comment on above: Performed By: #### M G, ANEU, CBC, ADIFF, GFR, BMP ####[place] [address] Creatinine [Mass/Vol] 0.53 mg/dL Normal 0.50-1.20 [facility] Comment on above: Result Comment: Test ing performed on Backchat analyzer using enzymatic creatinine methodology. Performed By: #### M G, ANEU, CBC, ADIFF, GFR, BMP ####[place] [address] Glucose [Mass/Vol] 82 mg/dL Normal 70-110 [facility] Comment on above: Performed By: #### M G, ANEU, CBC, ADIFF, GFR, BMP ####[place] [address] Potassium [Moles/Vol] 4.4 mmol/L Normal 3.5-5.0 [facility] Comment on above: Performed By: #### M G, ANEU, CBC, ADIFF, GFR, BMP ####[place] [address] Sodium [Moles/Vol] 141 mmol/L Normal 136-145 [facility] Comment on above: Performed By: #### M G, ANEU, CBC, ADIFF, GFR, BMP ####[place] [address] Urea nitrogen [Mass/Vol] 20.0 mg/dL Normal 8.0-22.0 [facility] Comment on above: Performed By: #### M G, ANEU, CBC, ADIFF, GFR, BMP ####[place] [address] CBCon 05-27-2024 Erythrocyte distribution width (RBC) [Ratio] 15.4 % Normal 11.5-15.5 [facility] Comment on above: Performed By: #### M G, ANEU, CBC, ADIFF, GFR, BMP ####[place] [address] Hematocrit (Bld) [Volume fraction] 28.2 % Low 34.0-46.0 [facility] Comment on above: Performed By: #### M G, ANEU, CBC, ADIFF, GFR, BMP ####[place] [address] Hgb 9.5 G/dL Low 12.0-16.0 [facility] Comment on above: Performed By: #### M G, ANEU, CBC, ADIFF, GFR, BMP ####[place] [address] MCH (RBC) [Entitic mass] 33.8 pg High 27.0-33.0 [facility] Comment on above: Performed By: #### M G, ANEU, CBC, ADIFF, GFR, BMP ####[place] [address] MCHC 33.6 G/dL Normal 32.0-36.0 [facility] Comment on above: Performed By: #### M G, ANEU, CBC, ADIFF, GFR, BMP ####[place] [address] MCV (RBC) [Entitic vol] 100.6 fL High 80.0-99.0 [facility] Comment on above: Performed By: #### M G, ANEU, CBC, ADIFF, GFR, BMP ####[place] [address] Platelet 166 10 3/mcL Normal 150-450 [facility] Comment on above: Performed By: #### M G, ANEU, CBC, ADIFF, GFR, BMP ####[place] [address] Platelet mean volume (Bld) [Entitic vol] 9.2 fL Normal 6.6-10.5 [facility] Comment on above: Performed By: #### M G, ANEU, CBC, ADIFF, GFR, BMP ####[place] [address] RBC 2.81 10 6/mcL Low 4.10-5.30 [facility] Comment on above: Performed By: #### M G, ANEU, CBC, ADIFF, GFR, BMP ####[place] [address] WBC 9.9 10 3/mcL Normal 4.5-10.8 [facility] Comment on above: Performed By: #### M G, ANEU, CBC, ADIFF, GFR, BMP ####[place] [address] MGon 05-27-2024 Magnesium [Mass/Vol] 1.8 mg/dL Normal 1.6-2.4 [facility] Comment on above: Performed By: #### M G, ANEU, CBC, ADIFF, GFR, BMP ####[address] [address] [place] ABDOMEN COMPLETEon 2024 US ABDOMEN COMPLETE Normal [facility] .Auto Diffon 05-26-2024 Basophil, Absolute 0.1 10 3/mcL Normal 0.0-0.3 [facility] Comment on above: Performed By: #### G FR, MG, CBC, VBG, ADIFF, ANEU, BMP ####[address] [address] Basophils/100 WBC (Bld) 0.5 % Normal 0.0-2.5 [facility] Comment on above: Performed By: #### G FR, MG, CBC, VBG, ADIFF, ANEU, BMP ####[address] [address] Eosinophil, Absolute 0.7 10 3/mcL Normal 0.0-0.7 [facility] Comment on above: Performed By: #### G FR, MG, CBC, VBG, ADIFF, ANEU, BMP ####[address] [address] Eosinophils/100 WBC (Bld) 6.2 % High 0.0-6.0 [facility] Comment on above: Performed By: #### G FR, MG, CBC, VBG, ADIFF, ANEU, BMP ####[address] [address] Lymphocyte, Absolute 1.1 10 3/mcL Normal 0.9-4.3 [facility] Comment on above: Performed By: #### G FR, MG, CBC, VBG, ADIFF, ANEU, BMP ####[address] [address] Lymphocytes/100 WBC (Bld) 8.9 % Low 20.0-40.0 [facility] Comment on above: Performed By: #### G FR, MG, CBC, VBG, ADIFF, ANEU, BMP ####[address] [place] [address] Monocyte, Absolute 0.9 10 3/mcL Normal 0.1-1.4 [facility] Comment on above: Performed By: #### G FR, MG, CBC, VBG, ADIFF, ANEU, BMP ####[place] [id number] [address] [place] [address] Monocytes/100 WBC (Bld) 7.5 % Normal 2.0-13.0 [facility] Comment on above: Performed By: #### G FR, MG, CBC, VBG, ADIFF, ANEU, BMP ####[address] [address] Neutrophils/100 WBC (Bld) 76.9 % High 50.0-75.0 [facility] Comment on above: Performed By: #### G FR, MG, CBC, VBG, ADIFF, ANEU, BMP ####[address] [address] .GFRon 05-26-2024 GFR/1.73 sq M.predicted among non-blacks MDRD (S/P/Bld) [Vol rate/Area] mL/min/{1.73_m2} Normal [facility] Comment on above: Result Comment: [...] results. Performed By: #### G FR, MG, CBC, VBG, ADIFF, ANEU, BMP ####[address] [address] .NEUABSon 05-26-2024 Neutrophil, Absolute 9.2 10 3/mcL High 2.3-8.1 [facility] Comment on above: Performed By: #### G FR, MG, CBC, VBG, ADIFF, ANEU, BMP ####[place] [address] BMPon 05-26-2024 CO2 [Moles/Vol] mmol/L Critically abnormal 22-32 [facility] Comment on above: Performed By: #### G FR, MG, CBC, VBG, ADIFF, ANEU, BMP ####[place] [address] Electrolyte Balance Unable to Calculate Normal 4.0-15. 0 [facility] Comment on above: Result Comment: Unab le to calculate this test result accurately. Results used to calculate this test are outside the reportable range. Performed By: #### G FR, MG, CBC, VBG, ADIFF, ANEU, BMP ####[place] [address] BUN/Creatinine Ratio 38.3 ratio High 10.0-22.0 [facility] Comment on above: Performed By: #### G FR, MG, CBC, VBG, ADIFF, ANEU, BMP ####[place] [address] Calcium [Mass/Vol] 9.1 mg/dL Normal 8.7-10.4 [facility] Comment on above: Performed By: #### G FR, MG, CBC, VBG, ADIFF, ANEU, BMP ####[place] [address] Chloride [Moles/Vol] 95 mmol/L Low 98-110 [facility] Comment on above: Performed By: #### G FR, MG, CBC, VBG, ADIFF, ANEU, BMP ####[place] [address] Creatinine [Mass/Vol] 0.47 mg/dL Low 0.50-1.20 [facility] Comment on above: Result Comment: Test ing performed on Backchat analyzer using enzymatic creatinine methodology. Performed By: #### G FR, MG, CBC, VBG, ADIFF, ANEU, BMP ####[place] [address] Glucose [Mass/Vol] 129 mg/dL High 70-110 [facility] Comment on above: Performed By: #### G FR, MG, CBC, VBG, ADIFF, ANEU, BMP ####[place] [address] Potassium [Moles/Vol] 4.8 mmol/L Normal 3.5-5.0 [facility] Comment on above: Performed By: #### G FR, MG, CBC, VBG, ADIFF, ANEU, BMP ####[place] [address] Sodium [Moles/Vol] 141 mmol/L Normal 136-145 [facility] Comment on above: Performed By: #### G FR, MG, CBC, VBG, ADIFF, ANEU, BMP ####[place] [address] Urea nitrogen [Mass/Vol] 18.0 mg/dL Normal 8.0-22.0 [facility] Comment on above: Performed By: #### G FR, MG, CBC, VBG, ADIFF, ANEU, BMP ####[place] [address] CBCon 05-26-2024 Erythrocyte distribution width (RBC) [Ratio] 15.2 % Normal 11.5-15.5 [facility] Comment on above: Performed By: #### G FR, MG, CBC, VBG, ADIFF, ANEU, BMP ####[place] [address] Hematocrit (Bld) [Volume fraction] 32.0 % Low 34.0-46.0 [facility] Comment on above: Performed By: #### G FR, MG, CBC, VBG, ADIFF, ANEU, BMP ####[place] [address] Hgb 10.2 G/dL Low 12.0-16.0 [facility] Comment on above: Performed By: #### G FR, MG, CBC, VBG, ADIFF, ANEU, BMP ####[place] [address] MCH (RBC) [Entitic mass] 32.4 pg Normal 27.0-33.0 [facility] Comment on above: Performed By: #### G FR, MG, CBC, VBG, ADIFF, ANEU, BMP ####[place] [address] MCHC 32.0 G/dL Normal 32.0-36.0 [facility] Comment on above: Performed By: #### G FR, MG, CBC, VBG, ADIFF, ANEU, BMP ####[place] [address] MCV (RBC) [Entitic vol] 101.0 fL High 80.0-99.0 [facility] Comment on above: Performed By: #### G FR, MG, CBC, VBG, ADIFF, ANEU, BMP ####[place] [address] Platelet 190 10 3/mcL Normal 150-450 [facility] Comment on above: Performed By: #### G FR, MG, CBC, VBG, ADIFF, ANEU, BMP ####[place] [address] Platelet mean volume (Bld) [Entitic vol] 8.9 fL Normal 6.6-10.5 [facility] Comment on above: Performed By: #### G FR, MG, CBC, VBG, ADIFF, ANEU, BMP ####[place] [address] RBC 3.17 10 6/mcL Low 4.10-5.30 [facility] Comment on above: Performed By: #### G FR, MG, CBC, VBG, ADIFF, ANEU, BMP ####[place] [address] WBC 12.0 10 3/mcL High 4.5-10.8 [facility] Comment on above: Performed By: #### G FR, MG, CBC, VBG, ADIFF, ANEU, BMP ####[place] [address] LABORATORYOrdered By: Sim Barclay on 05-26-2024 BE [...] AH Main Rapid Comm SS pH (Bld) 7.302 [pH] Low 7.380 - 7.460 AH Main Rapid Comm SS pO2 Satish 135.5 mm[Hg] High 35.0 - 40.0 mm Hg AH Main Rapid Comm SS MGon 05-26-2024 Magnesium [Mass/Vol] 1.8 mg/dL Normal 1.6-2.4 [facility] Comment on above: Performed By: #### G FR, MG, CBC, VBG, ADIFF, ANEU, BMP ####[address] [address] VBGon 05-26-2024 BE Venous 13.5 mmol/L High -3.0-3.0 [facility] Comment on above: Performed By: #### G FR, MG, CBC, VBG, ADIFF, ANEU, BMP ####[address] [address] CO2 [Moles/Vol] 45.9 mmol/L Critically abnormal 22.0-32.0 [facility] Comment on above: Performed By: #### G FR, MG, CBC, VBG, ADIFF, ANEU, BMP ####[address] [address] HCO3 (Bld) [Moles/Vol] 43.2 mmol/L High 21.0-30.0 [facility] Comment on above: Performed By: #### G FR, MG, CBC, VBG, ADIFF, ANEU, BMP ####[address] [address] Oxygen saturation in Blood 98.8 % High 70.0-75.0 [facility] Comment on above: Performed By: #### G FR, MG, CBC, VBG, ADIFF, ANEU, BMP ####[place] [address] pCO2 Satish 89.3 mmHg High 41.0-51.0 [facility] Comment on above: Performed By: #### G FR, MG, CBC, VBG, ADIFF, ANEU, BMP ####[place] [address] pH Venous 7.302 Low 7.380-7.460 [facility] Comment on above: Performed By: #### G FR, MG, CBC, VBG, ADIFF, ANEU, BMP ####[place] [address] pO2 Satish 135.5 mmHg High 35.0-40.0 [facility] Comment on above: Performed By: #### G FR, MG, CBC, VBG, ADIFF, ANEU, BMP ####[place] [address] .Auto Diffon 05-25-2024 Basophil, Absolute 0.1 10 3/mcL Normal 0.0-0.3 [facility] Comment on above: Performed By: #### M G, ADIFF, CBC, GFR, ANEU, BMP ####[place] [address] Basophils/100 WBC (Bld) 0.5 % Normal 0.0-2.5 [facility] Comment on above: Performed By: #### M G, ADIFF, CBC, GFR, ANEU, BMP ####[place] [address] Eosinophil, Absolute 0.7 10 3/mcL Normal 0.0-0.7 [facility] Comment on above: Performed By: #### M G, ADIFF, CBC, GFR, ANEU, BMP ####[place] [address] Eosinophils/100 WBC (Bld) 5.2 % Normal 0.0-6.0 [facility] Comment on above: Performed By: #### M G, ADIFF, CBC, GFR, ANEU, BMP ####[address] [address] Lymphocyte, Absolute 1.4 10 3/mcL Normal 0.9-4.3 [facility] Comment on above: Performed By: #### M G, ADIFF, CBC, GFR, ANEU, BMP ####[address] [address] Lymphocytes/100 WBC (Bld) 10.9 % Low 20.0-40.0 [facility] Comment on above: Performed By: #### M G, ADIFF, CBC, GFR, ANEU, BMP ####[address] [address] Monocyte, Absolute 0.9 10 3/mcL Normal 0.1-1.4 [facility] Comment on above: Performed By: #### M G, ADIFF, CBC, GFR, ANEU, BMP ####[address] [address] Monocytes/100 WBC (Bld) 7.2 % Normal 2.0-13.0 [facility] Comment on above: Performed By: #### M G, ADIFF, CBC, GFR, ANEU, BMP ####[address] [address] Neutrophils/100 WBC (Bld) 76.2 % High 50.0-75.0 [facility] Comment on above: Performed By: #### M G, ADIFF, CBC, GFR, ANEU, BMP ####[address] [address] .GFRon 05-25-2024 GFR/1.73 sq M.predicted among non-blacks MDRD (S/P/Bld) [Vol rate/Area] mL/min/{1.73_m2} Normal [facility] Comment on above: Result Comment: [...] theeGFR results. Performed By: #### M G, ADIFF, CBC, GFR, ANEU, BMP ####[place] [address] .NEUABSon 05-25-2024 Neutrophil, Absolute 10.0 10 3/mcL High 2.3-8.1 [facility] Comment on above: Performed By: #### M G, ADIFF, CBC, GFR, ANEU, BMP ####[place] [address] BMPon 05-25-2024 CO2 [Moles/Vol] mmol/L Critically abnormal 22-32 [facility] Comment on above: Performed By: #### M G, ADIFF, CBC, GFR, ANEU, BMP ####[place] [address] Electrolyte Balance Unable to Calculate Normal 4.0-15. 0 [facility] Comment on above: Result Comment: Unab le to calculate this test result accurately. Results used to calculate this test are outside the reportable range. Performed By: #### M G, ADIFF, CBC, GFR, ANEU, BMP ####[place] [address] BUN/Creatinine Ratio 45.5 ratio High 10.0-22.0 [facility] Comment on above: Performed By: #### M G, ADIFF, CBC, GFR, ANEU, BMP ####[place] [address] Calcium [Mass/Vol] 9.4 mg/dL Normal 8.7-10.4 [facility] Comment on above: Performed By: #### M G, ADIFF, CBC, GFR, ANEU, BMP ####[place] [address] Chloride [Moles/Vol] 95 mmol/L Low 98-110 [facility] Comment on above: Performed By: #### M G, ADIFF, CBC, GFR, ANEU, BMP ####[place] [address] Creatinine [Mass/Vol] 0.44 mg/dL Low 0.50-1.20 [facility] Comment on above: Result Comment: Test ing performed on Backchat analyzer using enzymatic creatinine methodology. Performed By: #### M G, ADIFF, CBC, GFR, ANEU, BMP ####[place] [address] Glucose [Mass/Vol] 83 mg/dL Normal 70-110 [facility] Comment on above: Performed By: #### M G, ADIFF, CBC, GFR, ANEU, BMP ####[place] [address] Potassium [Moles/Vol] 4.2 mmol/L Normal 3.5-5.0 [facility] Comment on above: Performed By: #### M G, ADIFF, CBC, GFR, ANEU, BMP ####[place] [address] Sodium [Moles/Vol] 141 mmol/L Normal 136-145 [facility] Comment on above: Performed By: #### M G, ADIFF, CBC, GFR, ANEU, BMP ####[place] [address] Urea nitrogen [Mass/Vol] 20.0 mg/dL Normal 8.0-22.0 [facility] Comment on above: Performed By: #### M G, ADIFF, CBC, GFR, ANEU, BMP ####[place] [address] CBCon 05-25-2024 Erythrocyte distribution width (RBC) [Ratio] 15.6 % High 11.5-15.5 [facility] Comment on above: Performed By: #### M G, ADIFF, CBC, GFR, ANEU, BMP ####[place] [address] Hematocrit (Bld) [Volume fraction] 30.6 % Low 34.0-46.0 [facility] Comment on above: Performed By: #### M G, ADIFF, CBC, GFR, ANEU, BMP ####[place] [address] Hgb 9.7 G/dL Low 12.0-16.0 [facility] Comment on above: Performed By: #### M G, ADIFF, CBC, GFR, ANEU, BMP ####[place] [address] MCH (RBC) [Entitic mass] 32.6 pg Normal 27.0-33.0 [facility] Comment on above: Performed By: #### M G, ADIFF, CBC, GFR, ANEU, BMP ####[place] [address] MCHC 31.8 G/dL Low 32.0-36.0 [facility] Comment on above: Performed By: #### M G, ADIFF, CBC, GFR, ANEU, BMP ####[place] [address] MCV (RBC) [Entitic vol] 102.7 fL High 80.0-99.0 [facility] Comment on above: Performed By: #### M G, ADIFF, CBC, GFR, ANEU, BMP ####[place] [address] Platelet 183 10 3/mcL Normal 150-450 [facility] Comment on above: Performed By: #### M G, ADIFF, CBC, GFR, ANEU, BMP ####[place] [address] Platelet mean volume (Bld) [Entitic vol] 9.1 fL Normal 6.6-10.5 [facility] Comment on above: Performed By: #### M G, ADIFF, CBC, GFR, ANEU, BMP ####[place] [address] RBC 2.98 10 6/mcL Low 4.10-5.30 [facility] Comment on above: Performed By: #### M G, ADIFF, CBC, GFR, ANEU, BMP ####[place] [address] WBC 13.1 10 3/mcL High 4.5-10.8 [facility] Comment on above: Performed By: #### M G, ADIFF, CBC, GFR, ANEU, BMP ####[address] [address] MGon 05-25-2024 Magnesium [Mass/Vol] 2.0 mg/dL Normal 1.6-2.4 [facility] Comment on above: Performed By: #### M G, ADIFF, CBC, GFR, ANEU, BMP ####[address] [address] XR CHEST 1 VIEWon 05-25-2024 XR CHEST 1 VIEW Normal [facility] .Auto Diffon 05-24-2024 Basophil, Absolute 0.1 10 3/mcL Normal 0.0-0.3 [facility] Comment on above: Performed By: #### B 12, MG, BMP, FES, FOL, GFR, PHOS, FERR, ADIFF, VBG, CBC, ANEU ####[address] [address] Basophils/100 WBC (Bld) 0.6 % Normal 0.0-2.5 [facility] Comment on above: Performed By: #### B 12, MG, BMP, FES, FOL, GFR, PHOS, FERR, ADIFF, VBG, CBC, ANEU ####[address] [address] Eosinophil, Absolute 0.8 10 3/mcL High 0.0-0.7 [facility] Comment on above: Performed By: #### B 12, MG, BMP, FES, FOL, GFR, PHOS, FERR, ADIFF, VBG, CBC, ANEU ####[address] [address] Eosinophils/100 WBC (Bld) 6.2 % High 0.0-6.0 [facility] Comment on above: Performed By: #### B 12, MG, BMP, FES, FOL, GFR, PHOS, FERR, ADIFF, VBG, CBC, ANEU ####[address] [address] Lymphocyte, Absolute 1.3 10 3/mcL Normal 0.9-4.3 [facility] Comment on above: Performed By: #### B 12, MG, BMP, FES, FOL, GFR, PHOS, FERR, ADIFF, VBG, CBC, ANEU ####[address] [address] Lymphocytes/100 WBC (Bld) 10.9 % Low 20.0-40.0 [facility] Comment on above: Performed By: #### B 12, MG, BMP, FES, FOL, GFR, PHOS, FERR, ADIFF, VBG, CBC, ANEU ####[address] [address] Monocyte, Absolute 1.1 10 3/mcL Normal 0.1-1.4 [facility] Comment on above: Performed By: #### B 12, MG, BMP, FES, FOL, GFR, PHOS, FERR, ADIFF, VBG, CBC, ANEU ####[address] [address] Monocytes/100 WBC (Bld) 9.2 % Normal 2.0-13.0 [facility] Comment on above: Performed By: #### B 12, MG, BMP, FES, FOL, GFR, PHOS, FERR, ADIFF, VBG, CBC, ANEU ####[address] [address] Neutrophils/100 WBC (Bld) 73.1 % Normal 50.0-75.0 [facility] Comment on above: Performed By: #### B 12, MG, BMP, FES, FOL, GFR, PHOS, FERR, ADIFF, VBG, CBC, ANEU ####[address] [address] .GFRon 05-24-2024 GFR/1.73 sq M.predicted among non-blacks MDRD (S/P/Bld) [Vol rate/Area] mL/min/{1.73_m2} Normal [facility] Comment on above: Result Comment: [...] calculate theeGFR results. Performed By: #### B 12, MG, BMP, FES, FOL, GFR, PHOS, FERR, ADIFF, VBG, CBC, ANEU ####[address] [address] .NEUABSon 05-24-2024 Neutrophil, Absolute 9.0 10 3/mcL High 2.3-8.1 [facility] Comment on above: Performed By: #### B 12, MG, BMP, FES, FOL, GFR, PHOS, FERR, ADIFF, VBG, CBC, ANEU ####[place] [id number] ANAIFSon 05-24-2024 Antinuclear Ab Screen Negative Normal Negative [facility] Comment on above: Result Comment: Anti -nuclear antibody test is used as an aid in diagnosis of systemic autoimmune diseases. Where positive and clinically warranted, follow-up using disease-specific testing is recommended. Low positive titers are not uncommon with advanced age, certain chronic infections, and malignancies among others.Test methodology: Indirect fluorescence immunoassay (IFA) using HEp-2 cells.Performed By:[facility] [id number] Director: Bin Montes III, M.D.CLIA#: [id number] Performed By: #### T SHR, FERR, [id number], ANAIFS, CBC, FES, ANEU, ADIFF, BMP, GFR, HEPAC, MG, 536214, RF, HIV ####[address] [address] B12on 05-24-2024 Cobalamin (Vitamin B12) [Mass/Vol] 587 pg/mL Normal 211-911 [facility] Comment on above: Performed By: #### B 12, MG, BMP, FES, FOL, GFR, PHOS, FERR, ADIFF, VBG, CBC, ANEU ####[address] [address] BGon 05-24-2024 Base excess Calc (Bld) [Moles/Vol] 15.0 mmol/L Normal [facility] Comment on above: Performed By: #### B G ####[place] [address] CO2 [Moles/Vol] 47.2 mmol/L Critically abnormal 22.0-30.0 [facility] Comment on above: Performed By: #### B G ####[place] [address] HCO3 (Bld) [Moles/Vol] 44.5 mmol/L High 21.0-29.0 [facility] Comment on above: Performed By: #### B G ####[place] [address] Oxygen (Bld) [Partial pressure] 65.1 mm[Hg] Low 74.0-108.0 [facility] Comment on above: Performed By: #### B G ####[place] [address] Oxygen saturation in Blood 91.8 % Low 92.0-96.0 [facility] Comment on above: Performed By: #### B G ####[place] [address] pCO2 87.8 mmHg Critically abnormal 32.0-46.0 [facility] Comment on above: Performed By: #### B G ####[place] [address] pH (Bld) 7.323 [pH] Low 7.380-7.460 [facility] Comment on above: Performed By: #### B G ####[place] [id number] BMPon 05-24-2024 BUN/Creatinine Ratio 44.9 ratio High 10.0-22.0 [facility] Comment on above: Performed By: #### B 12, MG, BMP, FES, FOL, GFR, PHOS, FERR, ADIFF, VBG, CBC, ANEU ####[address] [address] Calcium [Mass/Vol] 9.4 mg/dL Normal 8.7-10.4 [facility] Comment on above: Performed By: #### B 12, MG, BMP, FES, FOL, GFR, PHOS, FERR, ADIFF, VBG, CBC, ANEU ####[address] [address] Chloride [Moles/Vol] 96 mmol/L Low 98-110 [facility] Comment on above: Performed By: #### B 12, MG, BMP, FES, FOL, GFR, PHOS, FERR, ADIFF, VBG, CBC, ANEU ####[place] [id number] CO2 [Moles/Vol] mmol/L Critically abnormal 22-32 [facility] Comment on above: Performed By: #### B 12, MG, BMP, FES, FOL, GFR, PHOS, FERR, ADIFF, VBG, CBC, ANEU ####[place] [id number] Creatinine [Mass/Vol] 0.49 mg/dL Low 0.50-1.20 [facility] Comment on above: Result Comment: Test ing performed on [employer] analyzer using enzymatic creatinine methodology. Performed By: #### B 12, MG, BMP, FES, FOL, GFR, PHOS, FERR, ADIFF, VBG, CBC, ANEU ####[place] [id number] Electrolyte Balance <5.0 Normal 4.0-15.0 [facility] Comment on above: Performed By: #### B 12, MG, BMP, FES, FOL, GFR, PHOS, FERR, ADIFF, VBG, CBC, ANEU ####[place] [phone] Glucose [Mass/Vol] 106 mg/dL Normal 70-110 [facility] Comment on above: Performed By: #### B 12, MG, BMP, FES, FOL, GFR, PHOS, FERR, ADIFF, VBG, CBC, ANEU ####[address] [address] Potassium [Moles/Vol] 4.6 mmol/L Normal 3.5-5.0 [facility] Comment on above: Performed By: #### B 12, MG, BMP, FES, FOL, GFR, PHOS, FERR, ADIFF, VBG, CBC, ANEU ####[place] [address] Sodium [Moles/Vol] 141 mmol/L Normal 136-145 [facility] Comment on above: Performed By: #### B 12, MG, BMP, FES, FOL, GFR, PHOS, FERR, ADIFF, VBG, CBC, ANEU ####[place] [address] Urea nitrogen [Mass/Vol] 22.0 mg/dL Normal 8.0-22.0 [facility] Comment on above: Performed By: #### B 12, MG, BMP, FES, FOL, GFR, PHOS, FERR, ADIFF, VBG, CBC, ANEU ####[place] [id number] CBCon 05-24-2024 Erythrocyte distribution width (RBC) [Ratio] 15.4 % Normal 11.5-15.5 [facility] Comment on above: Performed By: #### B 12, MG, BMP, FES, FOL, GFR, PHOS, FERR, ADIFF, VBG, CBC, ANEU ####[place] [address] Hematocrit (Bld) [Volume fraction] 30.8 % Low 34.0-46.0 [facility] Comment on above: Performed By: #### B 12, MG, BMP, FES, FOL, GFR, PHOS, FERR, ADIFF, VBG, CBC, ANEU ####[place] [address] Hgb 10.0 G/dL Low 12.0-16.0 [facility] Comment on above: Performed By: #### B 12, MG, BMP, FES, FOL, GFR, PHOS, FERR, ADIFF, VBG, CBC, ANEU ####[place] [address] MCH (RBC) [Entitic mass] 32.9 pg Normal 27.0-33.0 [facility] Comment on above: Performed By: #### B 12, MG, BMP, FES, FOL, GFR, PHOS, FERR, ADIFF, VBG, CBC, ANEU ####[place] [address] MCHC 32.4 G/dL Normal 32.0-36.0 [facility] Comment on above: Performed By: #### B 12, MG, BMP, FES, FOL, GFR, PHOS, FERR, ADIFF, VBG, CBC, ANEU ####[place] [address] MCV (RBC) [Entitic vol] 101.5 fL High 80.0-99.0 [facility] Comment on above: Performed By: #### B 12, MG, BMP, FES, FOL, GFR, PHOS, FERR, ADIFF, VBG, CBC, ANEU ####[place] [address] Platelet 177 10 3/mcL Normal 150-450 [facility] Comment on above: Performed By: #### B 12, MG, BMP, FES, FOL, GFR, PHOS, FERR, ADIFF, VBG, CBC, ANEU ####[place] [address] Platelet mean volume (Bld) [Entitic vol] 9.0 fL Normal 6.6-10.5 [facility] Comment on above: Performed By: #### B 12, MG, BMP, FES, FOL, GFR, PHOS, FERR, ADIFF, VBG, CBC, ANEU ####[place] [address] RBC 3.04 10 6/mcL Low 4.10-5.30 [facility] Comment on above: Performed By: #### B 12, MG, BMP, FES, FOL, GFR, PHOS, FERR, ADIFF, VBG, CBC, ANEU ####[place] [address] WBC 12.3 10 3/mcL High 4.5-10.8 [facility] Comment on above: Performed By: #### B 12, MG, BMP, FES, FOL, GFR, PHOS, FERR, ADIFF, VBG, CBC, ANEU ####[place] [address] [place] 05-24-2024 Ferritin [Mass/Vol] 79.4 ng/mL Normal 8.0-252.0 [facility] Comment on above: Performed By: #### B 12, MG, BMP, FES, FOL, GFR, PHOS, FERR, ADIFF, VBG, CBC, ANEU ####[place] [address] FESon 05-24-2024 Iron [Mass/Vol] 62 ug/dL Normal 50-170 [facility] Comment on above: Performed By: #### B 12, MG, BMP, FES, FOL, GFR, PHOS, FERR, ADIFF, VBG, CBC, ANEU ####[place] [address] Iron Sat 20 % Normal [facility] Comment on above: Performed By: #### B 12, MG, BMP, FES, FOL, GFR, PHOS, FERR, ADIFF, VBG, CBC, ANEU ####[place] [address] TIBC 309 mcg/dL Normal 250-500 [facility] Comment on above: Performed By: #### B 12, MG, BMP, FES, FOL, GFR, PHOS, FERR, ADIFF, VBG, CBC, ANEU ####[place] [address] FOLon 05-24-2024 Folate 11.93 ng/mL Normal 5.38-24.00 [facility] Comment on above: Performed By: #### B 12, MG, BMP, FES, FOL, GFR, PHOS, FERR, ADIFF, VBG, CBC, ANEU ####[place] [address] LABORATORYOrdered By: Jonathan Wilkins on 05-24-2024 CO2 [Moles/Vol] 47.2 mmol/L Invalid Interpretation Code 22.0 - 30.0 mmol/L [facility] HCO3 (Bld) [Moles/Vol] 44.5 mmol/L High 21.0 - 29.0 mmol/L [facility] Oxygen (Bld) [Partial pressure] 65.1 mm[Hg] Low 74.0 - 108.0 mm Hg AH [facility] pCO2 87.8 mm[Hg] Invalid Interpretation Code 32.0 - 46.0 mm Hg [facility] pH (Bld) 7.323 [pH] Low 7.380 - 7.460 [facility] Sodium [Moles/Vol] 15.0 mmol/L Invalid Interpretation Code Main [facility] SS LABORATORYOrdered By: SYSTEM SYSTEM on 05-24-2024 Troponin I.cardiac DL <= 0.01 ng/mL [Mass/Vol] 4 ng/L Normal 0 - 34 ng/L ADM Comment on above: Interpretive Data: High Sensitive Troponin I Reference Ranges: Female: 0-34 ng/L Male: 0-54 ng/L Testing performed on [employer] analyzer using direct chemiluminescent technology. Cobalamin (Vitamin B12) [Mass/Vol] 587 pg/mL Normal 211 - 911 pg/mL ADM SS Ferritin [Mass/Vol] 79.4 ng/mL Normal 8.0 - 25 2.0 ng/mL ADM SS Folate [Mass/Vol] 11.93 ng/mL Normal 5.38 - 24.00 ng/mL ADM SS Iron [Mass/Vol] 62 ug/dL Normal 50 - 170 mcg/dL ADM SS Iron binding capacity [Mass/Vol] 309 mcg/dL Normal 250 - 500 mcg/dL ADM SS Iron saturation [Mass fraction] 20 % Invalid Interpretation Code ADM SS Phosphate [Mass/Vol] 4.4 mg/dL Normal 2.4 - 5 .1 mg/dL [facility] Comment on above: Interpretive Data: * *Note - New Reference Range in effect 19 MGon 05-24-2024 Magnesium [Mass/Vol] 2.0 mg/dL Normal 1.6-2.4 [facility] Comment on above: Performed By: #### B 12, MG, BMP, FES, FOL, GFR, PHOS, FERR, ADIFF, VBG, CBC, ANEU ####[place] [id number] PHOSon 05-24-2024 Phosphate [Mass/Vol] 4.4 mg/dL Normal 2.4-5.1 [facility] Comment on above: Result Comment: No te - New Reference Range in effect 19 Performed By: #### B 12, MG, BMP, FES, FOL, GFR, PHOS, FERR, ADIFF, VBG, CBC, ANEU ####[place] [address] RFon 05-24-2024 Rheumatoid Factor <6.0 Normal <=5.9 [facility] Comment on above: Result Comment: [...] serological tests.These results were obtained with the [employer] QUANTA Lite RF IgM GAETANO. RF IgM values obtained with different manufacturers' assay methods may not be used interchangeably.The magnitude of the reported IgM levels cannot be correlated to an endpoint titer. Performed By: #### T SHR, FERR, [id number], ANAIFS, CBC, FES, ANEU, ADIFF, BMP, GFR, HEPAC, MG, [id number], RF, HIV ####[place] [address] [id number] 05-24-2024 Anti-Scl-70 Abs 0.2 AI Normal 0.0-0.9 [facility] Comment on above: Result Comment: Perf ormed At: [facility] [id number] [place], [place] [id number] Vincent PhD Ph:[phone] Performed By: #### T SHR, FERR, [id number], ANAIFS, CBC, FES, ANEU, ADIFF, BMP, GFR, HEPAC, MG, 335325, RF, HIV ####[place] [address] SSABon 05-24-2024 Sjogrens SSA Ab <0.2 Normal 0.0-0.9 [facility] Comment on above: Performed By: #### T SHR, FERR, [id number], ANAIFS, CBC, FES, ANEU, ADIFF, BMP, GFR, HEPAC, MG, 122770, RF, HIV ####[place] [address] Sjogrens SSB Ab <0.2 Normal 0.0-0.9 [facility] Comment on above: Result Comment: Perf ormed At: [facility] [id number] [place], [place] [id number] Vincent PhD Ph:[phone] Performed By: #### T SHR, FERR, [id number], ANAIFS, CBC, FES, ANEU, ADIFF, BMP, GFR, HEPAC, MG, 497337, RF, HIV ####[place] [address] TROPHSon 05-24-2024 High Sensitivity Troponin I 4 ng/L Normal 0-34 [facility] Comment on above: Result Comment: High Sensitive Troponin I Reference Ranges:Female: 0-34 ng/LMale: 0-54 ng/LTesting performed on [employer] IM analyzer using direct chemiluminescent technology. Performed By: #### T [facility] ####[place] [address] VBGon 05-24-2024 BE Venous 13.3 mmol/L High -3.0-3.0 [facility] Comment on above: Performed By: #### B 12, MG, BMP, FES, FOL, GFR, PHOS, FERR, ADIFF, VBG, CBC, ANEU ####[place] [address] CO2 [Moles/Vol] 46.7 mmol/L Critically abnormal 22.0-32.0 [facility] Comment on above: Performed By: #### B 12, MG, BMP, FES, FOL, GFR, PHOS, FERR, ADIFF, VBG, CBC, ANEU ####[place] [address] HCO3 (Bld) [Moles/Vol] 43.7 mmol/L High 21.0-30.0 [facility] Comment on above: Performed By: #### B 12, MG, BMP, FES, FOL, GFR, PHOS, FERR, ADIFF, VBG, CBC, ANEU ####[place] [address] Oxygen saturation in Blood 88.9 % High 70.0-75.0 [facility] Comment on above: Performed By: #### B 12, MG, BMP, FES, FOL, GFR, PHOS, FERR, ADIFF, VBG, CBC, ANEU ####[place] [address] pCO2 Satish 97.6 mmHg High 41.0-51.0 [facility] Comment on above: Performed By: #### B 12, MG, BMP, FES, FOL, GFR, PHOS, FERR, ADIFF, VBG, CBC, ANEU ####[place] [address] pH Venous 7.269 Low 7.380-7.460 [facility] Comment on above: Performed By: #### B 12, MG, BMP, FES, FOL, GFR, PHOS, FERR, ADIFF, VBG, CBC, ANEU ####[place] [address] pO2 Satish 61.9 mmHg High 35.0-40.0 [facility] Comment on above: Performed By: #### B 12, MG, BMP, FES, FOL, GFR, PHOS, FERR, ADIFF, VBG, CBC, ANEU ####[place] [address] .Auto Diffon 05-23-2024 Basophil, Absolute 0.1 10 3/mcL Normal 0.0-0.3 [facility] Comment on above: Performed By: #### A DAISY, BMP, GFR, MG, ADIFF, CBC ####[place] [address] Basophils/100 WBC (Bld) 0.6 % Normal 0.0-2.5 [facility] Comment on above: Performed By: #### A DAISY, BMP, GFR, MG, ADIFF, CBC ####[address] [address] Eosinophil, Absolute 0.7 10 3/mcL Normal 0.0-0.7 [facility] Comment on above: Performed By: #### A DAISY, BMP, GFR, MG, ADIFF, CBC ####[address] [address] Eosinophils/100 WBC (Bld) 6.2 % High 0.0-6.0 [facility] Comment on above: Performed By: #### A DAISY, BMP, GFR, MG, ADIFF, CBC ####[address] [address] Lymphocyte, Absolute 1.2 10 3/mcL Normal 0.9-4.3 [facility] Comment on above: Performed By: #### A DAISY, BMP, GFR, MG, ADIFF, CBC ####[address] [address] Lymphocytes/100 WBC (Bld) 10.6 % Low 20.0-40.0 [facility] Comment on above: Performed By: #### A DAISY, BMP, GFR, MG, ADIFF, CBC ####[address] [address] Monocyte, Absolute 1.0 10 3/mcL Normal 0.1-1.4 [facility] Comment on above: Performed By: #### A DAISY, BMP, GFR, MG, ADIFF, CBC ####[address] [address] Monocytes/100 WBC (Bld) 9.4 % Normal 2.0-13.0 [facility] Comment on above: Performed By: #### A DAISY, BMP, GFR, MG, ADIFF, CBC ####[address] [address] Neutrophils/100 WBC (Bld) 73.2 % Normal 50.0-75.0 [facility] Comment on above: Performed By: #### A DAISY, BMP, GFR, MG, ADIFF, CBC ####[address] [address] .GFRon 05-23-2024 Estimated Glomerular Filtration Rate 120 ml/min/1.73sqm Normal [facility] Comment on above: Result Comment: [...] results. Performed By: #### A DAISY, BMP, GFR, MG, ADIFF, CBC ####[place] [address] .NEUABSon 05-23-2024 Neutrophil, Absolute 8.1 10 3/mcL Normal 2.3-8.1 [facility] Comment on above: Performed By: #### A DAISY, BMP, GFR, MG, ADIFF, CBC ####[place] [address] BMPon 05-23-2024 CO2 [Moles/Vol] mmol/L Critically abnormal 22-32 [facility] Comment on above: Performed By: #### A DAISY, BMP, GFR, MG, ADIFF, CBC ####[place] [address] Electrolyte Balance Unable to Calculate Normal 4.0-15. 0 [facility] Comment on above: Result Comment: Unab le to calculate this test result accurately. Results used to calculate this test are outside the reportable range. Performed By: #### A DAISY, BMP, GFR, MG, ADIFF, CBC ####[place] [address] BUN/Creatinine Ratio 45.1 ratio High 10.0-22.0 [facility] Comment on above: Performed By: #### A DAISY, BMP, GFR, MG, ADIFF, CBC ####[place] [address] Calcium [Mass/Vol] 9.0 mg/dL Normal 8.7-10.4 [facility] Comment on above: Performed By: #### A DAISY, BMP, GFR, MG, ADIFF, CBC ####[address] [address] Chloride [Moles/Vol] 96 mmol/L Low 98-110 [facility] Comment on above: Performed By: #### A DAISY, BMP, GFR, MG, ADIFF, CBC ####[address] [address] Creatinine [Mass/Vol] 0.51 mg/dL Normal 0.50-1.20 [facility] Comment on above: Result Comment: Test ing performed on [employer] analyzer using enzymatic creatinine methodology. Performed By: #### A DAISY, BMP, GFR, MG, ADIFF, CBC ####[address] [address] Glucose [Mass/Vol] 110 mg/dL Normal 70-110 [facility] Comment on above: Performed By: #### A DAISY, BMP, GFR, MG, ADIFF, CBC ####[address] [address] Potassium [Moles/Vol] 4.6 mmol/L Normal 3.5-5.0 [facility] Comment on above: Performed By: #### A DAISY, BMP, GFR, MG, ADIFF, CBC ####[address] [address] Sodium [Moles/Vol] 141 mmol/L Normal 136-145 [facility] Comment on above: Performed By: #### A DAISY, BMP, GFR, MG, ADIFF, CBC ####[address] [address] Urea nitrogen [Mass/Vol] 23.0 mg/dL High 8.0-22.0 [facility] Comment on above: Performed By: #### A DAISY, BMP, GFR, MG, ADIFF, CBC ####[address] [address] CBCon 05-23-2024 Erythrocyte distribution width (RBC) [Ratio] 15.3 % Normal 11.5-15.5 [facility] Comment on above: Performed By: #### A DAISY, BMP, GFR, MG, ADIFF, CBC ####[place] [address] Hematocrit (Bld) [Volume fraction] 29.6 % Low 34.0-46.0 [facility] Comment on above: Performed By: #### A DAISY, BMP, GFR, MG, ADIFF, CBC ####[place] [address] Hgb 9.5 G/dL Low 12.0-16.0 [facility] Comment on above: Performed By: #### A DAISY, BMP, GFR, MG, ADIFF, CBC ####[place] [address] MCH (RBC) [Entitic mass] 32.5 pg Normal 27.0-33.0 [facility] Comment on above: Performed By: #### A DAISY, BMP, GFR, MG, ADIFF, CBC ####[place] [address] MCHC 32.2 G/dL Normal 32.0-36.0 [facility] Comment on above: Performed By: #### A DAISY, BMP, GFR, MG, ADIFF, CBC ####[place] [address] MCV (RBC) [Entitic vol] 100.7 fL High 80.0-99.0 [facility] Comment on above: Performed By: #### A DAISY, BMP, GFR, MG, ADIFF, CBC ####[place] [address] Platelet 177 10 3/mcL Normal 150-450 [facility] Comment on above: Performed By: #### A DAISY, BMP, GFR, MG, ADIFF, CBC ####[place] [address] Platelet mean volume (Bld) [Entitic vol] 8.6 fL Normal 6.6-10.5 [facility] Comment on above: Performed By: #### A DAISY, BMP, GFR, MG, ADIFF, CBC ####[address] [address] RBC 2.94 10 6/mcL Low 4.10-5.30 [facility] Comment on above: Performed By: #### A DAISY, BMP, GFR, MG, ADIFF, CBC ####[address] [address] WBC 11.0 10 3/mcL High 4.5-10.8 [facility] Comment on above: Performed By: #### A DAISY, BMP, GFR, MG, ADIFF, CBC ####[address] [address] MGon 05-23-2024 Magnesium [Mass/Vol] 2.2 mg/dL Normal 1.6-2.4 [facility] Comment on above: Performed By: #### A DAISY, BMP, GFR, MG, ADIFF, CBC ####[address] [address] .Auto Diffon 05-22-2024 Basophil, Absolute 0.0 10 3/mcL Normal 0.0-0.3 [facility] Comment on above: Performed By: #### M G, BMP, ANEU, ADIFF, CBC, GFR ####[address] [address] Basophils/100 WBC (Bld) 0.3 % Normal 0.0-2.5 [facility] Comment on above: Performed By: #### M G, BMP, ANEU, ADIFF, CBC, GFR ####[address] [address] Eosinophil, Absolute 0.7 10 3/mcL Normal 0.0-0.7 [facility] Comment on above: Performed By: #### M G, BMP, ANEU, ADIFF, CBC, GFR ####[address] [address] Eosinophils/100 WBC (Bld) 5.8 % Normal 0.0-6.0 [facility] Comment on above: Performed By: #### M G, BMP, ANEU, ADIFF, CBC, GFR ####[address] [address] Lymphocyte, Absolute 1.4 10 3/mcL Normal 0.9-4.3 [facility] Comment on above: Performed By: #### M G, BMP, ANEU, ADIFF, CBC, GFR ####[address] [address] Lymphocytes/100 WBC (Bld) 11.8 % Low 20.0-40.0 [facility] Comment on above: Performed By: #### M G, BMP, ANEU, ADIFF, CBC, GFR ####[address] [address] Monocyte, Absolute 0.9 10 3/mcL Normal 0.1-1.4 [facility] Comment on above: Performed By: #### M G, BMP, ANEU, ADIFF, CBC, GFR ####[address] [address] Monocytes/100 WBC (Bld) 7.8 % Normal 2.0-13.0 [facility] Comment on above: Performed By: #### M G, BMP, ANEU, ADIFF, CBC, GFR ####[address] [address] Neutrophils/100 WBC (Bld) 74.3 % Normal 50.0-75.0 [facility] Comment on above: Performed By: #### M G, BMP, ANEU, ADIFF, CBC, GFR ####[address] [address] .GFRon 05-22-2024 GFR/1.73 sq M.predicted among non-blacks MDRD (S/P/Bld) [Vol rate/Area] mL/min/{1.73_m2} Normal [facility] Comment on above: Result Comment: [...] results. Performed By: #### M G, BMP, ANEU, ADIFF, CBC, GFR ####[address] [address] .NEUABSon 05-22-2024 Neutrophil, Absolute 9.1 10 3/mcL High 2.3-8.1 [facility] Comment on above: Performed By: #### M G, BMP, ANEU, ADIFF, CBC, GFR ####[address] [address] [facility] BUN/Creatinine Ratio 39.1 ratio High 10.0-22.0 [facility] Comment on above: Order Comment: vrb- called critical CO2 to RN Dylon Villasenor 05/22/2024 03:25:10 EDT SAS Performed By: #### M G, BMP, ANEU, ADIFF, CBC, GFR ####[address] [address] Calcium [Mass/Vol] 9.1 mg/dL Normal 8.7-10.4 [facility] Comment on above: Order Comment: vrb- called critical CO2 to RN Dylon Villasenor 05/22/2024 03:25:10 EDT SAS Performed By: #### M G, BMP, ANEU, ADIFF, CBC, GFR ####[address] [address] Chloride [Moles/Vol] 98 mmol/L Normal 98-110 [facility] Comment on above: Order Comment: vrb- called critical CO2 to RN Dylon Fullerer 05/22/2024 03:25:10 EDT SAS Performed By: #### M G, BMP, ANEU, ADIFF, CBC, GFR ####[address] [address] Creatinine [Mass/Vol] 0.46 mg/dL Low 0.50-1.20 [facility] Comment on above: Order Comment: vrb- called critical CO2 to RN Dylon Fullerer 05/22/2024 03:25:10 EDT SAS Result Comment: Test ing performed on [employer] CH analyzer using enzymatic creatinine methodology. Performed By: #### M G, BMP, ANEU, ADIFF, CBC, GFR ####[place] [id number] [address] [place] [id number] Glucose [Mass/Vol] 112 mg/dL High 70-110 [facility] Comment on above: Order Comment: vrb- called critical CO2 to RODRÍGUEZ Villasenor 05/22/2024 03:25:10 EDT SAS Performed By: #### M G, BMP, ANEU, ADIFF, CBC, GFR ####[address] [address] Potassium [Moles/Vol] 4.4 mmol/L Normal 3.5-5.0 [facility] Comment on above: Order Comment: vrb- called critical CO2 to RODRÍGUEZ Villasenor 05/22/2024 03:25:10 EDT SAS Performed By: #### M G, BMP, ANEU, ADIFF, CBC, GFR ####[address] [address] Sodium [Moles/Vol] 142 mmol/L Normal 136-145 [facility] Comment on above: Order Comment: vrb- called critical CO2 to RODRÍGUEZ Villasenor 05/22/2024 03:25:10 EDT SAS Performed By: #### M G, BMP, ANEU, ADIFF, CBC, GFR ####[address] [address] Urea nitrogen [Mass/Vol] 18.0 mg/dL Normal 8.0-22.0 [facility] Comment on above: Order Comment: vrb- called critical CO2 to RODRÍGUEZ Villasenor 05/22/2024 03:25:10 EDT SAS Performed By: #### M G, BMP, ANEU, ADIFF, CBC, GFR ####[address] [address] CO2 [Moles/Vol] mmol/L Critically abnormal 22-32 [facility] Comment on above: Order Comment: vrb- called critical CO2 to RODRÍGUEZ Villasenor 05/22/2024 03:25:10 EDT SAS Performed By: #### M G, BMP, ANEU, ADIFF, CBC, GFR ####[place] [address] Electrolyte Balance See Comment Normal 4.0-15.0 [facility] Comment on above: Order Comment: vrb- called critical CO2 to RN Dylonjose armando Villasenor 05/22/2024 03:25:10 EDT SAS Result Comment: Unab le to calculate this test result accurately. Results used to calculate this test are outside the reportable range. Performed By: #### M G, BMP, ANEU, ADIFF, CBC, GFR ####[place] [address] CBCon 05-22-2024 Erythrocyte distribution width (RBC) [Ratio] 14.6 % Normal 11.5-15.5 [facility] Comment on above: Performed By: #### M G, BMP, ANEU, ADIFF, CBC, GFR ####[place] [address] Hematocrit (Bld) [Volume fraction] 30.9 % Low 34.0-46.0 [facility] Comment on above: Performed By: #### M G, BMP, ANEU, ADIFF, CBC, GFR ####[place] [address] Hgb 9.7 G/dL Low 12.0-16.0 [facility] Comment on above: Performed By: #### M G, BMP, ANEU, ADIFF, CBC, GFR ####[place] [address] MCH (RBC) [Entitic mass] 31.7 pg Normal 27.0-33.0 [facility] Comment on above: Performed By: #### M G, BMP, ANEU, ADIFF, CBC, GFR ####[place] [address] MCHC 31.4 G/dL Low 32.0-36.0 [facility] Comment on above: Performed By: #### M G, BMP, ANEU, ADIFF, CBC, GFR ####[place] [address] MCV (RBC) [Entitic vol] 100.9 fL High 80.0-99.0 [facility] Comment on above: Performed By: #### M G, BMP, ANEU, ADIFF, CBC, GFR ####[place] [address] Platelet 190 10 3/mcL Normal 150-450 [facility] Comment on above: Performed By: #### M G, BMP, ANEU, ADIFF, CBC, GFR ####[place] [address] Platelet mean volume (Bld) [Entitic vol] 9.2 fL Normal 6.6-10.5 [facility] Comment on above: Performed By: #### M G, BMP, ANEU, ADIFF, CBC, GFR ####[place] [address] RBC 3.07 10 6/mcL Low 4.10-5.30 [facility] Comment on above: Performed By: #### M G, BMP, ANEU, ADIFF, CBC, GFR ####[place] [address] WBC 12.2 10 3/mcL High 4.5-10.8 [facility] Comment on above: Performed By: #### M G, BMP, ANEU, ADIFF, CBC, GFR ####[place] [address] MGon 05-22-2024 Magnesium [Mass/Vol] 2.4 mg/dL Normal 1.6-2.4 [facility] Comment on above: Performed By: #### M G, BMP, ANEU, ADIFF, CBC, GFR ####[place] [address] .Auto Diffon 05-21-2024 Basophil, Absolute 0.1 10 3/mcL Normal 0.0-0.3 [facility] Comment on above: Performed By: #### A DAISY, ADIFF, CBC ####[place] [address] Basophils/100 WBC (Bld) 0.6 % Normal 0.0-2.5 [facility] Comment on above: Performed By: #### A DAISY, ADIFF, CBC ####[address] [address] Eosinophil, Absolute 0.7 10 3/mcL Normal 0.0-0.7 [facility] Comment on above: Performed By: #### A DAISY, ADIFF, CBC ####[address] [address] Eosinophils/100 WBC (Bld) 5.1 % Normal 0.0-6.0 [facility] Comment on above: Performed By: #### A DAISY, ADIFF, CBC ####[address] [address] Lymphocyte, Absolute 1.4 10 3/mcL Normal 0.9-4.3 [facility] Comment on above: Performed By: #### A DAISY, ADIFF, CBC ####[address] [address] Lymphocytes/100 WBC (Bld) 10.5 % Low 20.0-40.0 [facility] Comment on above: Performed By: #### A DAISY, ADIFF, CBC ####[address] [address] Monocyte, Absolute 1.1 10 3/mcL Normal 0.1-1.4 [facility] Comment on above: Performed By: #### A DAISY, ADIFF, CBC ####[address] [address] Monocytes/100 WBC (Bld) 8.1 % Normal 2.0-13.0 [facility] Comment on above: Performed By: #### A DAISY, ADIFF, CBC ####[address] [address] Neutrophils/100 WBC (Bld) 75.7 % High 50.0-75.0 [facility] Comment on above: Performed By: #### A DAISY, ADIFF, CBC ####[address] [address] Basophil, Absolute 0.0 10 3/mcL Normal 0.0-0.3 [facility] Comment on above: Performed By: #### T SHR, FERR, [id number], ANAIFS, CBC, FES, ANEU, ADIFF, BMP, GFR, HEPAC, MG, [id number], RF, HIV ####[address] [address] Basophils/100 WBC (Bld) 0.3 % Normal 0.0-2.5 [facility] Comment on above: Performed By: #### T AMY, FERR, 553678, ANAIFS, CBC, FES, ANEU, ADIFF, BMP, GFR, HEPAC, MG, [id number], RF, HIV ####[address] [address] Eosinophil, Absolute 0.8 10 3/mcL High 0.0-0.7 [facility] Comment on above: Performed By: #### T AMY, FERR, 642105, ANAIFS, CBC, FES, ANEU, ADIFF, BMP, GFR, HEPAC, MG, [id number], RF, HIV ####[address] [address] Eosinophils/100 WBC (Bld) 6.0 % Normal 0.0-6.0 [facility] Comment on above: Performed By: #### T AMY, FERR, 697737, ANAIFS, CBC, FES, ANEU, ADIFF, BMP, GFR, HEPAC, MG, [id number], RF, HIV ####[address] [address] Lymphocyte, Absolute 1.3 10 3/mcL Normal 0.9-4.3 [facility] Comment on above: Performed By: #### T AMY, FERR, 699381, ANAIFS, CBC, FES, ANEU, ADIFF, BMP, GFR, HEPAC, MG, [id number], RF, HIV ####[address] [address] Lymphocytes/100 WBC (Bld) 10.4 % Low 20.0-40.0 [facility] Comment on above: Performed By: #### T AMY, FERR, 927200, ANAIFS, CBC, FES, ANEU, ADIFF, BMP, GFR, HEPAC, MG, [id number], RF, HIV ####[address] [address] Monocyte, Absolute 1.1 10 3/mcL Normal 0.1-1.4 [facility] Comment on above: Performed By: #### T SHR, FERR, 267483, ANAIFS, CBC, FES, ANEU, ADIFF, BMP, GFR, HEPAC, MG, [id number], RF, HIV ####[address] [address] Monocytes/100 WBC (Bld) 8.9 % Normal 2.0-13.0 [facility] Comment on above: Performed By: #### T SHR, FERR, 122658, ANAIFS, CBC, FES, ANEU, ADIFF, BMP, GFR, HEPAC, MG, [id number], RF, HIV ####[address] [address] Neutrophils/100 WBC (Bld) 74.4 % Normal 50.0-75.0 [facility] Comment on above: Performed By: #### T SHR, FERR, 940615, ANAIFS, CBC, FES, ANEU, ADIFF, BMP, GFR, HEPAC, MG, 851615, RF, HIV ####[address] [address] .GFRon 05-21-2024 GFR/1.73 sq M.predicted among non-blacks MDRD (S/P/Bld) [Vol rate/Area] mL/min/{1.73_m2} Normal [facility] Comment on above: Result Comment: [...] By: #### C MP, VBGC, LAC, GFR ####[place] [address] Estimated Glomerular Filtration Rate 118 ml/min/1.73sqm Normal [facility] Comment on above: Result Comment: [...] to calculate theeGFR results. Performed By: #### T SHR, FERR, 953988, ANAIFS, CBC, FES, ANEU, ADIFF, BMP, GFR, HEPAC, MG, [id number], RF, HIV ####[place] [address] .NEUABSon 05-21-2024 Neutrophil, Absolute 10.1 10 3/mcL High 2.3-8.1 [facility] Comment on above: Performed By: #### A DAISY, ADIFF, CBC ####[place] [address] Neutrophil, Absolute 9.4 10 3/mcL High 2.3-8.1 [facility] Comment on above: Performed By: #### T SHR, FERR, 241173, ANAIFS, CBC, FES, ANEU, ADIFF, BMP, GFR, HEPAC, MG, [id number], RF, HIV ####[place] [address] BMPon 05-21-2024 CO2 [Moles/Vol] mmol/L Critically abnormal 22-32 [facility] Comment on above: Performed By: #### T SHR, FERR, 999335, ANAIFS, CBC, FES, ANEU, ADIFF, BMP, GFR, HEPAC, MG, [id number], RF, HIV ####[address] [address] Electrolyte Balance Unable to Calculate Normal 4.0-15. 0 [facility] Comment on above: Result Comment: Unab le to calculate this test result accurately. Results used to calculate this test are outside the reportable range. Performed By: #### T SHR, FERR, 608078, ANAIFS, CBC, FES, ANEU, ADIFF, BMP, GFR, HEPAC, MG, [id number], RF, HIV ####[place] [address] BUN/Creatinine Ratio 40.0 ratio High 10.0-22.0 [facility] Comment on above: Performed By: #### T AMY, FERR, 698277, ANAIFS, CBC, FES, ANEU, ADIFF, BMP, GFR, HEPAC, MG, [id number], RF, HIV ####[place] [address] Calcium [Mass/Vol] 9.2 mg/dL Normal 8.7-10.4 [facility] Comment on above: Performed By: #### T AMY, FERR, 310501, ANAIFS, CBC, FES, ANEU, ADIFF, BMP, GFR, HEPAC, MG, [id number], RF, HIV ####[place] [address] Chloride [Moles/Vol] 95 mmol/L Low 98-110 [facility] Comment on above: Performed By: #### T AMY, FERR, 465124, ANAIFS, CBC, FES, ANEU, ADIFF, BMP, GFR, HEPAC, MG, [id number], RF, HIV ####[address] [address] Creatinine [Mass/Vol] 0.55 mg/dL Normal 0.50-1.20 [facility] Comment on above: Result Comment: Test ing performed on Backchat analyzer using enzymatic creatinine methodology. Performed By: #### T SHR, FERR, 514137, ANAIFS, CBC, FES, ANEU, ADIFF, BMP, GFR, HEPAC, MG, [id number], RF, HIV ####[address] [address] Glucose [Mass/Vol] 110 mg/dL Normal 70-110 [facility] Comment on above: Performed By: #### T SHR, FERR, 944193, ANAIFS, CBC, FES, ANEU, ADIFF, BMP, GFR, HEPAC, MG, [id number], RF, HIV ####[address] [address] Potassium [Moles/Vol] 4.0 mmol/L Normal 3.5-5.0 [facility] Comment on above: Performed By: #### T SHR, FERR, 959979, ANAIFS, CBC, FES, ANEU, ADIFF, BMP, GFR, HEPAC, MG, 924582, RF, HIV ####[place] [address] Sodium [Moles/Vol] 145 mmol/L Normal 136-145 [facility] Comment on above: Performed By: #### T SHR, FERR, 855597, ANAIFS, CBC, FES, ANEU, ADIFF, BMP, GFR, HEPAC, MG, 600107, RF, HIV ####[place] [address] Urea nitrogen [Mass/Vol] 22.0 mg/dL Normal 8.0-22.0 [facility] Comment on above: Performed By: #### T SHR, FERR, 969051, ANAIFS, CBC, FES, ANEU, ADIFF, BMP, GFR, HEPAC, MG, 683598, RF, HIV ####[address] [address] CBCon 05-21-2024 Erythrocyte distribution width (RBC) [Ratio] 14.8 % Normal 11.5-15.5 [facility] Comment on above: Performed By: #### A DAISYYESENIAIFF, CBC ####[place] [address] Hematocrit (Bld) [Volume fraction] 32.8 % Low 34.0-46.0 [facility] Comment on above: Performed By: #### A DAISY ADIFF, CBC ####[address] [address] Hgb 10.6 G/dL Low 12.0-16.0 [facility] Comment on above: Performed By: #### A [place], CBC ####[place] [address] MCH (RBC) [Entitic mass] 32.4 pg Normal 27.0-33.0 [facility] Comment on above: Performed By: #### A KENA [place]ILLA, CBC ####[place] [address] MCHC 32.4 G/dL Normal 32.0-36.0 [facility] Comment on above: Performed By: #### A [place]A, CBC ####[place] [address] MCV (RBC) [Entitic vol] 100.0 fL High 80.0-99.0 [facility] Comment on above: Performed By: #### A KENA [place]ILLA, CBC ####[place] [address] Platelet 205 10 3/mcL Normal 150-450 [facility] Comment on above: Performed By: #### A KENA [place]ILLA, CBC ####[place] [address] Platelet mean volume (Bld) [Entitic vol] 8.7 fL Normal 6.6-10.5 [facility] Comment on above: Performed By: #### A KENA [place]ILLA, CBC ####[place] [address] RBC 3.28 10 6/mcL Low 4.10-5.30 [facility] Comment on above: Performed By: #### A [place]NA [place]ILLA, CBC ####[place] [address] WBC 13.3 10 3/mcL High 4.5-10.8 [facility] Comment on above: Performed By: #### A [place]NA [place]A, CBC ####[place] [address] Erythrocyte distribution width (RBC) [Ratio] 14.9 % Normal 11.5-15.5 [facility] Comment on above: Performed By: #### T AMY, FERR, 095951, ANAIFS, CBC, FES, ANEU, ADIFF, BMP, GFR, HEPAC, MG, [id number], RF, HIV ####[place] [address] Hematocrit (Bld) [Volume fraction] 32.4 % Low 34.0-46.0 [facility] Comment on above: Performed By: #### T AMY, FERR, 871408, ANAIFS, CBC, FES, ANEU, ADIFF, BMP, GFR, HEPAC, MG, 945877, RF, HIV ####[place] [address] Hgb 10.4 G/dL Low 12.0-16.0 [facility] Comment on above: Performed By: #### T AMY, FERR, 907327, ANAIFS, CBC, FES, ANEU, ADIFF, BMP, GFR, HEPAC, MG, [id number], RF, HIV ####[place] [address] MCH (RBC) [Entitic mass] 32.2 pg Normal 27.0-33.0 [facility] Comment on above: Performed By: #### T AMY, FERR, 155228, ANAIFS, CBC, FES, ANEU, ADIFF, BMP, GFR, HEPAC, MG, 763090, RF, HIV ####[place] [address] MCHC 32.0 G/dL Normal 32.0-36.0 [facility] Comment on above: Performed By: #### T AMY, FERR, 019586, ANAIFS, CBC, FES, ANEU, ADIFF, BMP, GFR, HEPAC, MG, 129548, RF, HIV ####[place] [address] MCV (RBC) [Entitic vol] 100.7 fL High 80.0-99.0 [facility] Comment on above: Performed By: #### T AMY, FERR, 054416, ANAIFS, CBC, FES, ANEU, ADIFF, BMP, GFR, HEPAC, MG, 264997, RF, HIV ####[place] [address] Platelet 202 10 3/mcL Normal 150-450 [facility] Comment on above: Performed By: #### T SHR, FERR, 753720, ANAIFS, CBC, FES, ANEU, ADIFF, BMP, GFR, HEPAC, MG, 416603, RF, HIV ####[place] [address] Platelet mean volume (Bld) [Entitic vol] 8.7 fL Normal 6.6-10.5 [facility] Comment on above: Performed By: #### T SHR, FERR, 938767, ANAIFS, CBC, FES, ANEU, ADIFF, BMP, GFR, HEPAC, MG, 939923, RF, HIV ####[place] [address] RBC 3.22 10 6/mcL Low 4.10-5.30 [facility] Comment on above: Performed By: #### T SHR, FERR, 332765, ANAIFS, CBC, FES, ANEU, ADIFF, BMP, GFR, HEPAC, MG, 715907, RF, HIV ####[place] [address] WBC 12.6 10 3/mcL High 4.5-10.8 [facility] Comment on above: Performed By: #### T SHR, FERR, 246407, ANAIFS, CBC, FES, ANEU, ADIFF, BMP, GFR, HEPAC, MG, 284120, RF, HIV ####[place] [address] CMPon 05-21-2024 CO2 [Moles/Vol] mmol/L Critically abnormal 22-32 [facility] Comment on above: Performed By: #### C MP, VBGC, LAC, GFR ####[place] [address] Electrolyte Balance Unable to Calculate Normal 4.0-15. 0 [facility] Comment on above: Result Comment: Unab le to calculate this test result accurately. Results used to calculate this test are outside the reportable range. Performed By: #### C MP, VBGC, LAC, GFR ####[address] [address] Albumin Level 2.7 G/dL Low 3.2-4.8 [facility] Comment on above: Performed By: #### C MP, VBGC, LAC, GFR ####[address] [address] Albumin/Globulin [Mass ratio] 0.7 {ratio} Low 0.9-1.6 [facility] Comment on above: Performed By: #### C MP, VBGC, LAC, GFR ####[address] [address] ALP [Catalytic activity/Vol] 84 U/L Normal 38-126 [facility] Comment on above: Performed By: #### C MP, VBGC, LAC, GFR ####[place] [address] ALT [Catalytic activity/Vol] 25 U/L Normal 10-49 [facility] Comment on above: Performed By: #### C MP, VBGC, LAC, GFR ####[address] [address] AST [Catalytic activity/Vol] 21 U/L Normal 8-34 [facility] Comment on above: Performed By: #### C MP, VBGC, LAC, GFR ####[address] [address] Bili Total 0.30 mg/dL Normal 0.20-1.20 [facility] Comment on above: Result Comment: Use of this assay is not recommended for patients undergoing treatment with eltrombopag due to the potential for falsely elevated results. Performed By: #### C MP, VBGC, LAC, GFR ####[place] [id number] BUN/Creatinine Ratio 42.5 ratio High 10.0-22.0 [facility] Comment on above: Performed By: #### C MP, VBGC, LAC, GFR ####[address] [address] Calcium [Mass/Vol] 9.2 mg/dL Normal 8.7-10.4 [facility] Comment on above: Performed By: #### C MP, VBGC, LAC, GFR ####[address] [address] Chloride [Moles/Vol] 94 mmol/L Low 98-110 [facility] Comment on above: Performed By: #### C MP, VBGC, LAC, GFR ####[address] [address] Creatinine [Mass/Vol] 0.40 mg/dL Low 0.50-1.20 [facility] Comment on above: Result Comment: Test ing performed on Backchat analyzer using enzymatic creatinine methodology. Performed By: #### C MP, VBGC, LAC, GFR ####[address] [address] Globulin 3.9 G/dL High 1.5-3.8 [facility] Comment on above: Performed By: #### C MP, VBGC, LAC, GFR ####[address] [address] Glucose [Mass/Vol] 91 mg/dL Normal 70-110 [facility] Comment on above: Performed By: #### C MP, VBGC, LAC, GFR ####[address] [address] Potassium [Moles/Vol] 4.2 mmol/L Normal 3.5-5.0 [facility] Comment on above: Performed By: #### C MP, VBGC, LAC, GFR ####[address] [address] Sodium [Moles/Vol] 141 mmol/L Normal 136-145 [facility] Comment on above: Performed By: #### C MP, VBGC, LAC, GFR ####[address] [address] Total Protein 6.6 G/dL Normal 5.7-8.2 [facility] Comment on above: Performed By: #### C MP, VBGC, LAC, GFR ####[address] [address] Urea nitrogen [Mass/Vol] 17.0 mg/dL Normal 8.0-22.0 [facility] Comment on above: Performed By: #### C MP, VBGC, LAC, GFR ####[place] [address] [place] 05-21-2024 Ferritin [Mass/Vol] 97.0 ng/mL Normal 8.0-252.0 [facility] Comment on above: Performed By: #### T SHR, FERR, 390771, ANAIFS, CBC, FES, ANEU, ADIFF, BMP, GFR, HEPAC, MG, 111008, RF, HIV ####[place] [address] FESon 05-21-2024 Iron [Mass/Vol] 78 ug/dL Normal 50-170 [facility] Comment on above: Performed By: #### T AMY, FERR, 568677, ANAIFS, CBC, FES, ANEU, ADIFF, BMP, GFR, HEPAC, MG, 740621, RF, HIV ####[place] [address] Iron Sat 23 % Normal [facility] Comment on above: Performed By: #### T AMY, FERR, 973994, ANAIFS, CBC, FES, ANEU, ADIFF, BMP, GFR, HEPAC, MG, 154921, RF, HIV ####[place] [address] TIBC 341 mcg/dL Normal 250-500 [facility] Comment on above: Performed By: #### T SHR, FERR, 763362, ANAIFS, CBC, FES, ANEU, ADIFF, BMP, GFR, HEPAC, MG, 228323, RF, HIV ####[place] [address] HEPACon 05-21-2024 Hep A IgM Ab Non-Reactive Normal Non-Reactiv e [facility] Comment on above: Performed By: #### T SHR, FERR, 213571, ANAIFS, CBC, FES, ANEU, ADIFF, BMP, GFR, HEPAC, MG, 843801, RF, HIV ####[place] [address] Hep A IgM Ab Int [facility] Comment on above: Result Comment: No s erological evidence of a current Hepatitis A infection.See Interp Performed By: #### T SHR, FERR, 566796, ANAIFS, CBC, FES, ANEU, ADIFF, BMP, GFR, HEPAC, MG, 535098, RF, HIV ####[place] [address] Hep B Core IgM Ab Non-Reactive Normal Non-Reacti v [facility] Comment on above: Performed By: #### T SHR, FERR, 538846, ANAIFS, CBC, FES, ANEU, ADIFF, BMP, GFR, HEPAC, MG, 347204, RF, HIV ####[place] [address] Hep B Core IgM Ab Int [facility] Comment on above: Result Comment: Samp les with a value < 0.80 Index are considered nonreactive (negative) for IgM antibodies to hepatitis B core antigen.See Interp Performed By: #### T AMY, FERR, 023342, ANAIFS, CBC, FES, ANEU, ADIFF, BMP, GFR, HEPAC, MG, 821235, RF, HIV ####[place] [address] Hep B Surf Ag Non-Reactive Normal Non-Reactiv [facility] Comment on above: Performed By: #### T AMY, FERR, 164685, ANAIFS, CBC, FES, ANEU, ADIFF, BMP, GFR, HEPAC, MG, 548104, RF, HIV ####[place] [address] Hep C Ab Non-Reactive Normal Non-Reactiv [facility] Comment on above: Performed By: #### T SHR, FERR, 065640, ANAIFS, CBC, FES, ANEU, ADIFF, BMP, GFR, HEPAC, MG, 609118, RF, HIV ####[place] [address] Hep C Ab Int [facility] Comment on above: Result Comment: Nonr eactive: Samples with a value < 0.80 are considered nonreactive (negative) for antibodies to HCV.A negative test result does not exclude the possibility of exposure to or infection with HCV. HCV antibodies may be undetectable in some stages of the infection and in some clinical conditions.See Interp Performed By: #### T SHR, FERR, 564219, ANAIFS, CBC, FES, ANEU, ADIFF, BMP, GFR, HEPAC, MG, 621416, RF, HIV ####[place] [address] HIVon 05-21-2024 HIV 1/2 Ab Non-Reactive Normal Non-Reactiv e [facility] Comment on above: Result Comment: Spec imen is negative for anti-HIV-1 and anti-HIV-2. Performed By: #### T SHR, FERR, 844112, ANAIFS, CBC, FES, ANEU, ADIFF, BMP, GFR, HEPAC, MG, 696604, RF, HIV ####[place] [address] LABORATORYOrdered By: SYSTEM SYSTEM on 05-21-2024 Albumin BCP dye [Mass/Vol] 2.7 G/dL Low 3.2 - 4.8 G/dL ADM SS Albumin/Globulin [Mass ratio] 0.7 {ratio} Low 0.9 - 1.6 ratio AH ADM SS ALP [Catalytic activity/Vol] 84 U/L Normal 38 - 126 U/L ADM SS ALT No additional P-5'-P [Catalytic activity/Vol] 25 U/L Normal 10 - 49 U/L ADM SS AST [Catalytic activity/Vol] 21 U/L Normal 8 - 34 U/L ADM SS Bilirubin [Mass/Vol] 0.30 mg/dL Normal 0.20 - 1.20 mg/dL AH ADM SS Comment on above: Interpretive Data: U se of this assay is not recommended for patients undergoing treatment with eltrombopag due to the potential for falsely elevated results. Globulin 3.9 G/dL High 1.5 - 3.8 G/dL AH ADM SS Lactate [Moles/Vol] 0.6 mmol/L Normal 0.5 - 2. 2 mmol/L AH ADM SS Protein [Mass/Vol] 6.6 G/dL Normal 5.7 - 8.2 G/dL AH ADM SS Iron [Mass/Vol] 78 ug/dL Normal 50 - 170 mcg/dL ADM SS Iron binding capacity [Mass/Vol] 341 mcg/dL Normal 250 - 500 mcg/dL ADM SS Iron saturation [Mass fraction] 23 % Invalid Interpretation Code AH ADM SS Ferritin [Mass/Vol] 97.0 ng/mL Normal 8.0 - 25 2.0 ng/mL ADM SS TSH Qn 4.296 mIU/mL Normal 0.550 - 4.780 mIU/mL ADM SS LABORATORYOrdered By: LABBOO P CONTRIBUTOR_SYSTEM on 05-21-2024 Anti-Scl-70 Abs (LC) 0.2 AI Invalid Interpretation Code 0.0-0.9 Sendouts SS Comment on above: Result Comment: Perf ormed At: [facility] [id number] Kesha Darden PhD Ph:[phone] Sjogrens SSA Ab (LC) AI Invalid Interpretation Code 0.0-0.9 Sendouts SS Sjogrens SSB Ab (LC) AI Invalid Interpretation Code 0.0-0.9 Sendouts SS Comment on above: Result Comment: Perf ormed At: [address] [id number] Kesha Darden PhD Ph:[phone] LABORATORYOrdered By: DEE CHAVEZ CONTRIBUTOR_SYSTEM on 05-21-2024 Antinuclear Ab Screen Negative Invalid Interpretation Code Negative [facility] Comment on above: Result Comment: Anti -nuclear antibody test is used as an aid in diagnosis of systemic autoimmune diseases. Where positive and clinically warranted, follow-up using disease-specific testing is recommended. Low positive titers are not uncommon with advanced age, certain chronic infections, and malignancies among others. Test methodology: Indirect fluorescence immunoassay (IFA) using HEp-2 cells. Performed By: [facility] [address] [place] [address] Diagnostic Assistant: Bin Montes III, M.D. CLIA#: [id number] LABORATORYOrdered By: Sim Barclay on 05-21-2024 HAV IgM IA Ql Non-Reactive (05/21/24 5:37 AM) Normal Non-Reactiv e AH ADM SS HAV IgM IA Ql No serological evidence of a current Hepatitis A infection. Normal Chemistry S HBV core IgM IA Ql Non-Reactive (05/21/24 5:37 AM) Normal Non-Reactiv e AH ADM SS HBV core IgM IA Ql Samples with a value < 0.80 Index are considered nonreactive (negative) for IgM antibodies to hepatitis B core antigen. Normal AH Chemistry S HBV surface Ag IA Ql Non-Reactive (05/21/24 5:37 AM) Normal Non-Reactiv e AH ADM SS HCV Ab IA Ql Non-Reactive (05/21/24 5:37 AM) Normal Non-Reactiv e AH ADM SS HCV Ab IA Ql [...] IA Ql Non-Reactive (05/21/24 5:37 AM) Normal Non-Reactiv e AH ADM SS HIV 1+2 Ab IA [...] tests. These results were obtained with the [employer] [employer] RF IgM GAETANO. RF IgM values obtained with different manufacturers' assay methods may not be used interchangeably. The magnitude of the reported IgM levels cannot be correlated to an endpoint titer. LACon 05-21-2024 Lactic Acid Lvl 0.6 mmol/L Normal 0.5-2.2 [facility] Comment on above: Performed By: #### C MP, VBGC, LAC, GFR ####[address] [address] MGon 05-21-2024 Magnesium [Mass/Vol] 2.4 mg/dL Normal 1.6-2.4 [facility] Comment on above: Performed By: #### T SHR, FERR, [id number], ANAIFS, CBC, FES, ANEU, ADIFF, BMP, GFR, HEPAC, MG, [id number], RF, HIV ####[place] [id number] TSHRon 05-21-2024 TSH 4.296 mIU/mL Normal 0.550-4.780 [facility] Comment on above: Performed By: #### T SHR, FERR, [id number], ANAIFS, CBC, FES, ANEU, ADIFF, BMP, GFR, HEPAC, MG, [id number], RF, HIV ####[place] [address] VBG-Con 05-21-2024 BE Venous 17.7 mmol/L High -3.0-3.0 [facility] Comment on above: Order Comment: Draw via central line using ABG Syringe ONLY Performed By: #### C MP, VBGC, LAC, GFR ####[place] [address] CO2 [Moles/Vol] 51.4 mmol/L Critically abnormal 22.0-32.0 [facility] Comment on above: Order Comment: Draw via central line using ABG Syringe ONLY Performed By: #### C MP, VBGC, LAC, GFR ####[place] [address] HCO3 (Bld) [Moles/Vol] 48.4 mmol/L High 21.0-30.0 [facility] Comment on above: Order Comment: Draw via central line using ABG Syringe ONLY Performed By: #### C MP, VBGC, LAC, GFR ####[place] [address] Oxygen saturation in Blood 72.9 % Normal 70.0-75.0 [facility] Comment on above: Order Comment: Draw via central line using ABG Syringe ONLY Performed By: #### C MP, VBGC, LAC, GFR ####[place] [address] pCO2 Satish 100.1 mmHg High 41.0-51.0 [facility] Comment on above: Order Comment: Draw via central line using ABG Syringe ONLY Performed By: #### C MP, VBGC, LAC, GFR ####[place] [address] pH Venous 7.302 Low 7.380-7.460 [facility] Comment on above: Order Comment: Draw via central line using ABG Syringe ONLY Performed By: #### C MP, VBGC, LAC, GFR ####[place] [address] pO2 Satish 42.6 mmHg High 35.0-40.0 [facility] Comment on above: Order Comment: Draw via central line using ABG Syringe ONLY Performed By: #### C MP, VBGC, LAC, GFR ####[place] [address] .Auto Diffon 05-20-2024 Basophil, Absolute 0.0 10 3/mcL Normal 0.0-0.3 [facility] Comment on above: Performed By: #### M G, ADIFF, BMP, CBC, ANEU, GFR ####[place] [address] Basophils/100 WBC (Bld) 0.4 % Normal 0.0-2.5 [facility] Comment on above: Performed By: #### M G, ADIFF, BMP, CBC, ANEU, GFR ####[place] [address] Eosinophil, Absolute 0.5 10 3/mcL Normal 0.0-0.7 [facility] Comment on above: Performed By: #### M G, ADIFF, BMP, CBC, ANEU, GFR ####[place] [address] Eosinophils/100 WBC (Bld) 5.4 % Normal 0.0-6.0 [facility] Comment on above: Performed By: #### M G, ADIFF, BMP, CBC, ANEU, GFR ####[place] [address] Lymphocyte, Absolute 1.5 10 3/mcL Normal 0.9-4.3 [facility] Comment on above: Performed By: #### M G, ADIFF, BMP, CBC, ANEU, GFR ####[address] [address] Lymphocytes/100 WBC (Bld) 14.6 % Low 20.0-40.0 [facility] Comment on above: Performed By: #### M G, ADIFF, BMP, CBC, ANEU, GFR ####[address] [address] Monocyte, Absolute 0.9 10 3/mcL Normal 0.1-1.4 [facility] Comment on above: Performed By: #### M G, ADIFF, BMP, CBC, ANEU, GFR ####[address] [address] Monocytes/100 WBC (Bld) 8.7 % Normal 2.0-13.0 [facility] Comment on above: Performed By: #### M G, ADIFF, BMP, CBC, ANEU, GFR ####[address] [address] Neutrophils/100 WBC (Bld) 70.9 % Normal 50.0-75.0 [facility] Comment on above: Performed By: #### M G, ADIFF, BMP, CBC, ANEU, GFR ####[address] [address] .GFRon 05-20-2024 Estimated Glomerular Filtration Rate 117 ml/min/1.73sqm Normal [facility] Comment on above: Result Comment: [...] theeGFR results. Performed By: #### M G, VBGC, GFR, CMP ####[address] [address] Estimated Glomerular Filtration Rate 114 ml/min/1.73sqm Normal [facility] Comment on above: Result Comment: [...] theeGFR results. Performed By: #### M G, ADIFF, BMP, CBC, ANEU, GFR ####[place] [address] .NEUABSon 05-20-2024 Neutrophil, Absolute 7.1 10 3/mcL Normal 2.3-8.1 [facility] Comment on above: Performed By: #### M G, ADIFF, BMP, CBC, ANEU, GFR ####[place] [address] BMPon 05-20-2024 BUN/Creatinine Ratio 37.5 ratio High 10.0-22.0 [facility] Comment on above: Order Comment: vrb- called critical CO2 to RN Marcelina Mccartney 05/20/2024 05:18:24 EDT SAS Performed By: #### M G, ADIFF, BMP, CBC, ANEU, GFR ####[address] [address] Calcium [Mass/Vol] 8.3 mg/dL Low 8.7-10.4 [facility] Comment on above: Order Comment: vrb- called critical CO2 to RN Marcelina Mccartney 05/20/2024 05:18:24 EDT SAS Performed By: #### M G, ADIFF, BMP, CBC, ANEU, GFR ####[place] [address] Chloride [Moles/Vol] 98 mmol/L Normal 98-110 [facility] Comment on above: Order Comment: vrb- called critical CO2 to RN Marcelina Winn 05/20/2024 05:18:24 EDT SAS Performed By: #### M G, ADIFF, BMP, CBC, ANEU, GFR ####[address] [address] Creatinine [Mass/Vol] 0.64 mg/dL Normal 0.50-1.20 [facility] Comment on above: Order Comment: vrb- called critical CO2 to RN Marcelina Winn 05/20/2024 05:18:24 EDT SAS Result Comment: Test ing performed on Backchat analyzer using enzymatic creatinine methodology. Performed By: #### M G, ADIFF, BMP, CBC, ANEU, GFR ####[address] [address] Glucose [Mass/Vol] 131 mg/dL High 70-110 [facility] Comment on above: Order Comment: vrb- called critical CO2 to RN Marcelina Winn 05/20/2024 05:18:24 EDT SAS Performed By: #### M G, ADIFF, BMP, CBC, ANEU, GFR ####[address] [address] Potassium [Moles/Vol] 3.9 mmol/L Normal 3.5-5.0 [facility] Comment on above: Order Comment: vrb- called critical CO2 to RN Marcelina Winn 05/20/2024 05:18:24 EDT SAS Performed By: #### M G, ADIFF, BMP, CBC, ANEU, GFR ####[address] [address] Sodium [Moles/Vol] 147 mmol/L High 136-145 [facility] Comment on above: Order Comment: vrb- called critical CO2 to RN Marcelina Winn 05/20/2024 05:18:24 EDT SAS Performed By: #### M G, ADIFF, BMP, CBC, ANEU, GFR ####[address] [address] Urea nitrogen [Mass/Vol] 24.0 mg/dL High 8.0-22.0 [facility] Comment on above: Order Comment: vrb- called critical CO2 to RN Marcelina Gonzalezn 05/20/2024 05:18:24 EDT SAS Performed By: #### M G, ADIFF, BMP, CBC, ANEU, GFR ####[address] [address] CO2 [Moles/Vol] mmol/L Critically abnormal 22-32 [facility] Comment on above: Order Comment: vrb- called critical CO2 to RN Marcelina Gonzalezn 05/20/2024 05:18:24 EDT SAS Performed By: #### M G, ADIFF, BMP, CBC, ANEU, GFR ####[address] [address] Electrolyte Balance See Comment Normal 4.0-15.0 [facility] Comment on above: Order Comment: vrb- called critical CO2 to RN Marcelina Gonzalezn 05/20/2024 05:18:24 EDT SAS Result Comment: Unab le to calculate this test result accurately. Results used to calculate this test are outside the reportable range. Performed By: #### M G, ADIFF, BMP, CBC, ANEU, GFR ####[address] [address] CBCon 05-20-2024 Erythrocyte distribution width (RBC) [Ratio] 14.6 % Normal 11.5-15.5 [facility] Comment on above: Performed By: #### M G, ADIFF, BMP, CBC, ANEU, GFR ####[address] [address] Hematocrit (Bld) [Volume fraction] 29.8 % Low 34.0-46.0 [facility] Comment on above: Performed By: #### M G, ADIFF, BMP, CBC, ANEU, GFR ####[address] [address] Hgb 9.8 G/dL Low 12.0-16.0 [facility] Comment on above: Performed By: #### M G, ADIFF, BMP, CBC, ANEU, GFR ####[address] [address] MCH (RBC) [Entitic mass] 32.7 pg Normal 27.0-33.0 [facility] Comment on above: Performed By: #### M G, ADIFF, BMP, CBC, ANEU, GFR ####[place] [address] MCHC 32.8 G/dL Normal 32.0-36.0 [facility] Comment on above: Performed By: #### M G, ADIFF, BMP, CBC, ANEU, GFR ####[place] [address] MCV (RBC) [Entitic vol] 99.8 fL High 80.0-99.0 [facility] Comment on above: Performed By: #### M G, ADIFF, BMP, CBC, ANEU, GFR ####[place] [address] Platelet 192 10 3/mcL Normal 150-450 [facility] Comment on above: Performed By: #### M G, ADIFF, BMP, CBC, ANEU, GFR ####[place] [address] Platelet mean volume (Bld) [Entitic vol] 8.7 fL Normal 6.6-10.5 [facility] Comment on above: Performed By: #### M G, ADIFF, BMP, CBC, ANEU, GFR ####[place] [address] RBC 2.98 10 6/mcL Low 4.10-5.30 [facility] Comment on above: Performed By: #### M G, ADIFF, BMP, CBC, ANEU, GFR ####[place] [address] WBC 10.1 10 3/mcL Normal 4.5-10.8 [facility] Comment on above: Performed By: #### M G, ADIFF, BMP, CBC, ANEU, GFR ####[place] [address] CMPon 05-20-2024 CO2 [Moles/Vol] mmol/L Critically abnormal [facility] Comment on above: Performed By: #### M G, VBGC, GFR, CMP ####[place] [address] Electrolyte Balance Unable to Calculate Normal 4.0-15. 0 [facility] Comment on above: Result Comment: Unab le to calculate this test result accurately. Results used to calculate this test are outside the reportable range. Performed By: #### M G, VBGC, GFR, CMP ####[place] [address] Albumin Level 2.8 G/dL Low 3.2-4.8 [facility] Comment on above: Performed By: #### M G, VBGC, GFR, CMP ####[place] [address] Albumin/Globulin [Mass ratio] 0.6 {ratio} Low 0.9-1.6 [facility] Comment on above: Performed By: #### M G, VBGC, GFR, CMP ####[place] [address] ALP [Catalytic activity/Vol] 93 U/L Normal 38-126 [facility] Comment on above: Performed By: #### M G, VBGC, GFR, CMP ####[place] [address] ALT [Catalytic activity/Vol] 26 U/L Normal 10-49 [facility] Comment on above: Performed By: #### M G, VBGC, GFR, CMP ####[place] [address] AST [Catalytic activity/Vol] 17 U/L Normal 8-34 [facility] Comment on above: Performed By: #### M G, VBGC, GFR, CMP ####[place] [address] Bili Total 0.40 mg/dL Normal 0.20-1.20 [facility] Comment on above: Result Comment: Use of this assay is not recommended for patients undergoing treatment with eltrombopag due to the potential for falsely elevated results. Performed By: #### M G, VBGC, GFR, CMP ####[place] [address] BUN/Creatinine Ratio 39.7 ratio High 10.0-22.0 [facility] Comment on above: Performed By: #### M Tiera, VBGC, GFR, CMP ####[address] [address] Calcium [Mass/Vol] 9.0 mg/dL Normal 8.7-10.4 [facility] Comment on above: Performed By: #### Rah Mott, VBGC, GFR, CMP ####[address] [address] Chloride [Moles/Vol] 93 mmol/L Low 98-110 [facility] Comment on above: Performed By: #### Rah Mott, VBGC, GFR, CMP ####[address] [address] Creatinine [Mass/Vol] 0.58 mg/dL Normal 0.50-1.20 [facility] Comment on above: Result Comment: Test ing performed on Backchat analyzer using enzymatic creatinine methodology. Performed By: #### Rah Mott, VBGC, GFR, CMP ####[address] [address] Globulin 4.4 G/dL High 1.5-3.8 [facility] Comment on above: Performed By: #### Rah Mott, VBGC, GFR, CMP ####[address] [address] Glucose [Mass/Vol] 101 mg/dL Normal 70-110 [facility] Comment on above: Performed By: #### Rah Mott, VBGC, GFR, CMP ####[address] [address] Potassium [Moles/Vol] 4.2 mmol/L Normal 3.5-5.0 [facility] Comment on above: Performed By: #### Rah G, VBGC, GFR, CMP ####[address] [address] Sodium [Moles/Vol] 142 mmol/L Normal 136-145 [facility] Comment on above: Performed By: #### Rah G, VBGC, GFR, CMP ####[address] [address] Total Protein 7.2 G/dL Normal 5.7-8.2 [facility] Comment on above: Performed By: #### M Tiera, VBGC, GFR, CMP ####[place] [id number] [place] [address] Urea nitrogen [Mass/Vol] 23.0 mg/dL High 8.0-22.0 [facility] Comment on above: Performed By: #### Rah Mott, VBGC, GFR, CMP ####[facility] [place] [address] ANGIOGRAPHY CHEST W/CONTR Leonel 05-20-2024 CT ANGIOGRAPHY CHEST W/CONTRAST Normal [facility] LABORATORYOrdered By: SYSTEM SYSTEM on [...] 17 U/L Normal 8 - 34 U/L AH ADM SS Bilirubin [Mass/Vol] 0.40 mg/dL Normal [...] 05-20-2024 Magnesium [Mass/Vol] 2.2 mg/dL Normal 1.6-2.4 [facility] Comment on above: Performed By: #### M Tiera, VBGC, GFR, CMP ####[place] [id number] [place] [address] Magnesium [Mass/Vol] 2.1 mg/dL Normal 1.6-2.4 [facility] Comment on above: Performed By: #### M G, ADIFF, BMP, CBC, ANEU, GFR ####[place] [address] VBG-Con 05-20-2024 BE Venous 19.3 mmol/L High -3.0-3.0 [facility] Comment on above: Order Comment: Draw via central line using ABG Syringe ONLY Performed By: #### M G, VBGC, GFR, CMP ####[place] [address] CO2 [Moles/Vol] 53.1 mmol/L Critically abnormal 22.0-32.0 [facility] Comment on above: Order Comment: Draw via central line using ABG Syringe ONLY Performed By: #### M G, VBGC, GFR, CMP ####[place] [address] HCO3 (Bld) [Moles/Vol] 50.0 mmol/L High 21.0-30.0 [facility] Comment on above: Order Comment: Draw via central line using ABG Syringe ONLY Performed By: #### M G, VBGC, GFR, CMP ####[place] [address] Oxygen saturation in Blood 70.4 % Normal 70.0-75.0 [facility] Comment on above: Order Comment: Draw via central line using ABG Syringe ONLY Performed By: #### M G, VBGC, GFR, CMP ####[place] [address] pCO2 Satish 98.9 mmHg High 41.0-51.0 [facility] Comment on above: Order Comment: Draw via central line using ABG Syringe ONLY Performed By: #### M G, VBGC, GFR, CMP ####[place] [address] pH Venous 7.322 Low 7.380-7.460 [facility] Comment on above: Order Comment: Draw via central line using ABG Syringe ONLY Performed By: #### M G, VBGC, GFR, CMP ####[place] [address] pO2 Satish 40.4 mmHg High 35.0-40.0 [facility] Comment on above: Order Comment: Draw via central line using ABG Syringe ONLY Performed By: #### M G, VBGC, GFR, CMP ####[address] [address] .Auto Diffon 05-19-2024 Basophil, Absolute 0.0 10 3/mcL Normal 0.0-0.3 [facility] Comment on above: Performed By: #### C BC, ANEU, GFR, MG, BMP, ADIFF ####[address] [address] Basophils/100 WBC (Bld) 0.2 % Normal 0.0-2.5 [facility] Comment on above: Performed By: #### C BC, ANEU, GFR, MG, BMP, ADIFF ####[address] [address] Eosinophil, Absolute 0.6 10 3/mcL Normal 0.0-0.7 [facility] Comment on above: Performed By: #### C BC, ANEU, GFR, MG, BMP, ADIFF ####[address] [address] Eosinophils/100 WBC (Bld) 5.1 % Normal 0.0-6.0 [facility] Comment on above: Performed By: #### C BC, ANEU, GFR, MG, BMP, ADIFF ####[address] [address] Lymphocyte, Absolute 1.1 10 3/mcL Normal 0.9-4.3 [facility] Comment on above: Performed By: #### C BC, ANEU, GFR, MG, BMP, ADIFF ####[address] [address] Lymphocytes/100 WBC (Bld) 8.9 % Low 20.0-40.0 [facility] Comment on above: Performed By: #### C BC, ANEU, GFR, MG, BMP, ADIFF ####[address] [address] Monocyte, Absolute 1.0 10 3/mcL Normal 0.1-1.4 [facility] Comment on above: Performed By: #### C BC, ANEU, GFR, MG, BMP, ADIFF ####[place] [address] [place] [address] Monocytes/100 WBC (Bld) 7.7 % Normal 2.0-13.0 [facility] Comment on above: Performed By: #### C BC, ANEU, GFR, MG, BMP, ADIFF ####[address] [address] Neutrophils/100 WBC (Bld) 78.1 % High 50.0-75.0 [facility] Comment on above: Performed By: #### C BC, ANEU, GFR, MG, BMP, ADIFF ####[address] [address] .GFRon 05-19-2024 Estimated Glomerular Filtration Rate 117 ml/min/1.73sqm Normal [facility] Comment on above: Result Comment: [...] C BC, ANEU, GFR, MG, BMP, ADIFF ####[place] [id number] [place] [address] .NEUABSon 05-19-2024 Neutrophil, Absolute 9.8 10 3/mcL High 2.3-8.1 [facility] Comment on above: Performed By: #### C BC, ANEU, GFR, MG, BMP, ADIFF ####[place] [id number] [place] [address] BMPon 05-19-2024 CO2 [Moles/Vol] mmol/L Critically abnormal 22-32 [facility] Comment on above: Performed By: #### C BC, ANEU, GFR, MG, BMP, ADIFF ####[address] [address] Electrolyte Balance Unable to Calculate Normal 4.0-15. 0 [facility] Comment on above: Result Comment: Unab le to calculate this test result accurately. Results used to calculate this test are outside the reportable range. Performed By: #### C BC, ANEU, GFR, MG, BMP, ADIFF ####[address] [address] BUN/Creatinine Ratio 39.7 ratio High 10.0-22.0 [facility] Comment on above: Performed By: #### C BC, ANEU, GFR, MG, BMP, ADIFF ####[address] [address] Creatinine [Mass/Vol] 0.58 mg/dL Normal 0.50-1.20 [facility] Comment on above: Result Comment: Test ing performed on Backchat analyzer using enzymatic creatinine methodology. Performed By: #### C BC, ANEU, GFR, MG, BMP, ADIFF ####[address] [address] Calcium [Mass/Vol] 8.6 mg/dL Low 8.7-10.4 [facility] Comment on above: Performed By: #### C BC, ANEU, GFR, MG, BMP, ADIFF ####[address] [address] Chloride [Moles/Vol] 95 mmol/L Low 98-110 [facility] Comment on above: Performed By: #### C BC, ANEU, GFR, MG, BMP, ADIFF ####[address] [address] Glucose [Mass/Vol] 107 mg/dL Normal 70-110 [facility] Comment on above: Performed By: #### C BC, ANEU, GFR, MG, BMP, ADIFF ####[address] [address] Potassium [Moles/Vol] 3.7 mmol/L Normal 3.5-5.0 [facility] Comment on above: Performed By: #### C BC, ANEU, GFR, MG, BMP, ADIFF ####[place] [address] Sodium [Moles/Vol] 145 mmol/L Normal 136-145 [facility] Comment on above: Performed By: #### C BC, ANEU, GFR, MG, BMP, ADIFF ####[place] [address] Urea nitrogen [Mass/Vol] 23.0 mg/dL High 8.0-22.0 [facility] Comment on above: Performed By: #### C BC, ANEU, GFR, MG, BMP, ADIFF ####[place] [address] CBCon 05-19-2024 Erythrocyte distribution width (RBC) [Ratio] 15.4 % Normal 11.5-15.5 [facility] Comment on above: Performed By: #### C BC, ANEU, GFR, MG, BMP, ADIFF ####[place] [address] Hematocrit (Bld) [Volume fraction] 31.9 % Low 34.0-46.0 [facility] Comment on above: Performed By: #### C BC, ANEU, GFR, MG, BMP, ADIFF ####[place] [address] Hgb 10.2 G/dL Low 12.0-16.0 [facility] Comment on above: Performed By: #### C BC, ANEU, GFR, MG, BMP, ADIFF ####[place] [address] MCH (RBC) [Entitic mass] 31.8 pg Normal 27.0-33.0 [facility] Comment on above: Performed By: #### C BC, ANEU, GFR, MG, BMP, ADIFF ####[place] [address] MCHC 31.8 G/dL Low 32.0-36.0 [facility] Comment on above: Performed By: #### C BC, ANEU, GFR, MG, BMP, ADIFF ####[place] [address] MCV (RBC) [Entitic vol] 100.1 fL High 80.0-99.0 [facility] Comment on above: Performed By: #### C BC, ANEU, GFR, MG, BMP, ADIFF ####[place] [address] Platelet 214 10 3/mcL Normal 150-450 [facility] Comment on above: Performed By: #### C BC, ANEU, GFR, MG, BMP, ADIFF ####[place] [address] Platelet mean volume (Bld) [Entitic vol] 8.7 fL Normal 6.6-10.5 [facility] Comment on above: Performed By: #### C BC, ANEU, GFR, MG, BMP, ADIFF ####[place] [address] RBC 3.19 10 6/mcL Low 4.10-5.30 [facility] Comment on above: Performed By: #### C BC, ANEU, GFR, MG, BMP, ADIFF ####[place] [address] WBC 12.6 10 3/mcL High 4.5-10.8 [facility] Comment on above: Performed By: #### C BC, ANEU, GFR, MG, BMP, ADIFF ####[place] [address] MGon 05-19-2024 Magnesium [Mass/Vol] 1.8 mg/dL Normal 1.6-2.4 [facility] Comment on above: Performed By: #### C BC, ANEU, GFR, MG, BMP, ADIFF ####[place] [address] XR CHEST 1 VIEWon 05-19-2024 XR CHEST 1 VIEW Normal [facility] .Auto Diffon 05-18-2024 Basophil, Absolute 0.0 10 3/mcL Normal 0.0-0.3 [facility] Comment on above: Performed By: #### M G, LAC, GFR, CBC, PBNP, CMP, ADIFF, ANEU ####[address] [address] Basophils/100 WBC (Bld) 0.3 % Normal 0.0-2.5 [facility] Comment on above: Performed By: #### M G, LAC, GFR, CBC, PBNP, CMP, ADIFF, ANEU ####[address] [address] Eosinophil, Absolute 0.7 10 3/mcL Normal 0.0-0.7 [facility] Comment on above: Performed By: #### M G, LAC, GFR, CBC, PBNP, CMP, ADIFF, ANEU ####[address] [address] Eosinophils/100 WBC (Bld) 4.7 % Normal 0.0-6.0 [facility] Comment on above: Performed By: #### M G, LAC, GFR, CBC, PBNP, CMP, ADIFF, ANEU ####[address] [address] Lymphocyte, Absolute 0.9 10 3/mcL Normal 0.9-4.3 [facility] Comment on above: Performed By: #### M G, LAC, GFR, CBC, PBNP, CMP, ADIFF, ANEU ####[address] [address] Lymphocytes/100 WBC (Bld) 6.5 % Low 20.0-40.0 [facility] MAIN Comment on above: Performed By: #### M G, LAC, GFR, CBC, PBNP, CMP, ADIFF, ANEU ####[address] [address] Monocyte, Absolute 0.9 10 3/mcL Normal 0.1-1.4 [facility] MAIN Comment on above: Performed By: #### M G, LAC, GFR, CBC, PBNP, CMP, ADIFF, ANEU ####[address] [address] Monocytes/100 WBC (Bld) 6.8 % Normal 2.0-13.0 [facility] MAIN Comment on above: Performed By: #### M G, LAC, GFR, CBC, PBNP, CMP, ADIFF, ANEU ####[place] [address] Neutrophils/100 WBC (Bld) 81.7 % High 50.0-75.0 [facility] MAIN Comment on above: Performed By: #### M G, LAC, GFR, CBC, PBNP, CMP, ADIFF, ANEU ####[place] [address] .GFRon 05-18-2024 GFR/1.73 sq M.predicted among non-blacks MDRD (S/P/Bld) [Vol rate/Area] mL/min/{1.73_m2} Normal [facility] MAIN Comment on above: Result Comment: [...] theeGFR results. Performed By: #### M G, LAC, GFR, CBC, PBNP, CMP, ADIFF, ANEU ####[place] [id number] .NEUABSon 05-18-2024 Neutrophil, Absolute 11.3 10 3/mcL High 2.3-8.1 [facility] MAIN Comment on above: Performed By: #### M G, LAC, GFR, CBC, PBNP, CMP, ADIFF, ANEU ####[place] [address] BGon 05-18-2024 Base excess Calc (Bld) [Moles/Vol] 17.0 mmol/L [facility] MAIN Comment on above: Performed By: #### B G ####[address] [address] CO2 [Moles/Vol] 46.5 mmol/L Critically abnormal 22.0-30.0 [facility] Comment on above: Performed By: #### B G ####[place] [address] HCO3 (Bld) [Moles/Vol] 44.5 mmol/L High 21.0-29.0 [facility] Comment on above: Performed By: #### B G ####[place] [address] Oxygen (Bld) [Partial pressure] 74.7 mm[Hg] Normal 74.0-108.0 [facility] Comment on above: Performed By: #### B G ####[place] [address] Oxygen saturation in Blood 95.6 % Normal 92.0-96.0 [facility] Comment on above: Performed By: #### B G ####[place] [address] pCO2 68.2 mmHg Critically abnormal 32.0-46.0 [facility] Comment on above: Performed By: #### B G ####[place] [phone] pH (Bld) 7.432 [pH] Normal 7.380-7.460 [facility] Comment on above: Performed By: #### B G ####[place] [phone] Base excess Calc (Bld) [Moles/Vol] 13.7 mmol/L Normal [facility] Comment on above: Performed By: #### B G ####[address] [address] CO2 [Moles/Vol] 47.0 mmol/L Critically abnormal 22.0-30.0 [facility] Comment on above: Performed By: #### B G ####[address] [address] HCO3 (Bld) [Moles/Vol] 44.2 mmol/L High 21.0-29.0 [facility] Comment on above: Performed By: #### B G ####[place] [address] Oxygen (Bld) [Partial pressure] 162.9 mm[Hg] High 74.0-108.0 [facility] Comment on above: Performed By: #### B G ####[place] [address] Oxygen saturation in Blood 99.4 % High 92.0-96.0 [facility] Comment on above: Performed By: #### B G ####[place] [address] pCO2 93.5 mmHg Critically abnormal 32.0-46.0 [facility] Comment on above: Performed By: #### B G ####[place] [address] pH (Bld) 7.292 [pH] Low 7.380-7.460 [facility] Comment on above: Performed By: #### B G ####[place] [address] CBCon 05-18-2024 Erythrocyte distribution width (RBC) [Ratio] 14.4 % Normal 11.5-15.5 [facility] Comment on above: Performed By: #### M G, LAC, GFR, CBC, PBNP, CMP, ADIFF, ANEU ####[place] [address] Hematocrit (Bld) [Volume fraction] 33.5 % Low 34.0-46.0 [facility] Comment on above: Performed By: #### M G, LAC, GFR, CBC, PBNP, CMP, ADIFF, ANEU ####[place] [address] Hgb 11.1 G/dL Low 12.0-16.0 [facility] Comment on above: Performed By: #### M G, LAC, GFR, CBC, PBNP, CMP, ADIFF, ANEU ####[place] [address] MCH (RBC) [Entitic mass] 32.6 pg Normal 27.0-33.0 [facility] Comment on above: Performed By: #### M G, LAC, GFR, CBC, PBNP, CMP, ADIFF, ANEU ####[place] [address] MCHC 33.2 G/dL Normal 32.0-36.0 [facility] Comment on above: Performed By: #### M G, LAC, GFR, CBC, PBNP, CMP, ADIFF, ANEU ####[place] [address] MCV (RBC) [Entitic vol] 98.3 fL Normal 80.0-99.0 [facility] Comment on above: Performed By: #### M G, LAC, GFR, CBC, PBNP, CMP, ADIFF, ANEU ####[place] [address] Platelet 217 10 3/mcL Normal 150-450 [facility] Comment on above: Performed By: #### M G, LAC, GFR, CBC, PBNP, CMP, ADIFF, ANEU ####[place] [address] Platelet mean volume (Bld) [Entitic vol] 9.1 fL Normal 6.6-10.5 [facility] Comment on above: Performed By: #### M G, LAC, GFR, CBC, PBNP, CMP, ADIFF, ANEU ####[place] [address] RBC 3.41 10 6/mcL Low 4.10-5.30 [facility] Comment on above: Performed By: #### M G, LAC, GFR, CBC, PBNP, CMP, ADIFF, ANEU ####[place] [address] WBC 13.9 10 3/mcL High 4.5-10.8 [facility] Comment on above: Performed By: #### M G, LAC, GFR, CBC, PBNP, CMP, ADIFF, ANEU ####[place] [address] CMPon 05-18-2024 CO2 [Moles/Vol] mmol/L Critically abnormal - [facility] Comment on above: Performed By: #### M G, LAC, GFR, CBC, PBNP, CMP, ADIFF, ANEU ####[place] [address] Electrolyte Balance Unable to Calculate Normal 4.0-15. 0 [facility] Comment on above: Result Comment: Unab le to calculate this test result accurately. Results used to calculate this test are outside the reportable range. Performed By: #### M G, LAC, GFR, CBC, PBNP, CMP, ADIFF, ANEU ####[place] [address] Albumin Level 2.7 G/dL Low 3.2-4.8 [facility] Comment on above: Performed By: #### M G, LAC, GFR, CBC, PBNP, CMP, ADIFF, ANEU ####[place] [address] Albumin/Globulin [Mass ratio] 0.6 {ratio} Low 0.9-1.6 [facility] Comment on above: Performed By: #### M G, LAC, GFR, CBC, PBNP, CMP, ADIFF, ANEU ####[address] [address] ALP [Catalytic activity/Vol] 95 U/L Normal 38-126 [facility] Comment on above: Performed By: #### M G, LAC, GFR, CBC, PBNP, CMP, ADIFF, ANEU ####[address] [address] ALT [Catalytic activity/Vol] 32 U/L Normal 10-49 [facility] Comment on above: Performed By: #### M G, LAC, GFR, CBC, PBNP, CMP, ADIFF, ANEU ####[address] [address] AST [Catalytic activity/Vol] 22 U/L Normal 8-34 [facility] Comment on above: Performed By: #### M G, LAC, GFR, CBC, PBNP, CMP, ADIFF, ANEU ####[place] [address] Bili Total 0.30 mg/dL Normal 0.20-1.20 [facility] Comment on above: Result Comment: Use of this assay is not recommended for patients undergoing treatment with eltrombopag due to the potential for falsely elevated results. Performed By: #### M G, LAC, GFR, CBC, PBNP, CMP, ADIFF, ANEU ####[address] [address] BUN/Creatinine Ratio 52.6 ratio High 10.0-22.0 [facility] Comment on above: Performed By: #### M G, LAC, GFR, CBC, PBNP, CMP, ADIFF, ANEU ####[place] [phone] Calcium [Mass/Vol] 9.4 mg/dL Normal 8.7-10.4 [facility] Comment on above: Performed By: #### M G, LAC, GFR, CBC, PBNP, CMP, ADIFF, ANEU ####[place] [phone] Chloride [Moles/Vol] 96 mmol/L Low 98-110 [facility] Comment on above: Performed By: #### M G, LAC, GFR, CBC, PBNP, CMP, ADIFF, ANEU ####[place] [phone] Creatinine [Mass/Vol] 0.38 mg/dL Low 0.50-1.20 [facility] Comment on above: Result Comment: Test ing performed on Backchat analyzer using enzymatic creatinine methodology. Performed By: #### M G, LAC, GFR, CBC, PBNP, CMP, ADIFF, ANEU ####[address] [address] Globulin 4.3 G/dL High 1.5-3.8 [facility] Comment on above: Performed By: #### M G, LAC, GFR, CBC, PBNP, CMP, ADIFF, ANEU ####[address] [address] Glucose [Mass/Vol] 98 mg/dL Normal 70-110 [facility] Comment on above: Performed By: #### M G, LAC, GFR, CBC, PBNP, CMP, ADIFF, ANEU ####[place] [id number] [address] [place] [address] Potassium [Moles/Vol] 3.5 mmol/L Normal 3.5-5.0 [facility] Comment on above: Performed By: #### M G, LAC, GFR, CBC, PBNP, CMP, ADIFF, ANEU ####[address] [address] Sodium [Moles/Vol] 144 mmol/L Normal 136-145 [facility] Comment on above: Performed By: #### M G, LAC, GFR, CBC, PBNP, CMP, ADIFF, ANEU ####[place] [address] Total Protein 7.0 G/dL Normal 5.7-8.2 [facility] Comment on above: Performed By: #### M G, LAC, GFR, CBC, PBNP, CMP, ADIFF, ANEU ####[place] [address] Urea nitrogen [Mass/Vol] 20.0 mg/dL Normal 8.0-22.0 [facility] Comment on above: Performed By: #### M G, LAC, GFR, CBC, PBNP, CMP, ADIFF, ANEU ####[place] [address] LABORATORYOrdered By: SYSTEM SYSTEM on 05-18-2024 Albumin [...] 4.3 G/dL High 1.5 - 3.8 G/dL AH ADM SS Lactate [Moles/Vol] 0.5 mmol/L Normal 0.5 - 2. 2 mmol/L AH ADM SS Natriuretic peptide.B prohormone N-Terminal IA [...] mm[Hg] Normal 74.0 - 108.0 mm Hg Main Rapid Comm SS pCO2 68.2 mm[Hg] Invalid Interpretation Code 32.0 - 46.0 mm Hg AH Main Rapid Comm SS pH (Bld) 7.432 [pH] Normal 7.380 - 7.460 AH Main Rapid Comm SS Sodium [Moles/Vol] 17.0 mmol/L Invalid Interpretation Code Main Rapid Comm SS LABORATORYOrdered By: Samantha Aquino on 05-18-2024 CO2 [Moles/Vol] 47.0 mmol/L Invalid Interpretation Code 22.0 - 30.0 mmol/L Main Rapid Comm SS HCO3 (Bld) [Moles/Vol] 44.2 mmol/L High 21.0 - 29.0 mmol/L AH [...] Lactic Acid Lvl 0.5 mmol/L Normal 0.5-2.2 [facility] Comment on above: Performed By: #### M G, LAC, GFR, CBC, PBNP, CMP, ADIFF, ANEU ####[address] [address] MGon 05-18-2024 Magnesium [Mass/Vol] 2.0 mg/dL Normal 1.6-2.4 [facility] Comment on above: Performed By: #### M G, LAC, GFR, CBC, PBNP, CMP, ADIFF, ANEU ####[place] [address] PBNPon 05-18-2024 Natriuretic peptide B (Bld) [Mass/Vol] 1334 pg/mL High 0-450 [facility] Comment on above: Performed By: #### M G, LAC, GFR, CBC, PBNP, CMP, ADIFF, ANEU ####[place] [address] VBG-Con 05-18-2024 BE Venous 18.3 mmol/L High -3.0-3.0 [facility] Comment on above: Order Comment: Draw via central line using ABG Syringe ONLY Performed By: #### V BGC ####[place] [address] CO2 [Moles/Vol] 49.3 mmol/L Critically abnormal 22.0-32.0 [facility] Comment on above: Order Comment: Draw via central line using ABG Syringe ONLY Performed By: #### V BGC ####[place] [phone] HCO3 (Bld) [Moles/Vol] 46.9 mmol/L High 21.0-30.0 [facility] Comment on above: Order Comment: Draw via central line using ABG Syringe ONLY Performed By: #### V BGC ####[place] [address] Oxygen saturation in Blood 68.6 % Low 70.0-75.0 [facility] Comment on above: Order Comment: Draw via central line using ABG Syringe ONLY Performed By: #### V BGC ####[address] [address] pCO2 Satish 78.7 mmHg High 41.0-51.0 [facility] Comment on above: Order Comment: Draw via central line using ABG Syringe ONLY Performed By: #### V BGC ####[address] [address] pH Venous 7.393 Normal 7.380-7.460 [facility] Comment on above: Order Comment: Draw via central line using ABG Syringe ONLY Performed By: #### V BGC ####[place] [address] pO2 Satish 34.4 mmHg Low 35.0-40.0 [facility] Comment on above: Order Comment: Draw via central line using ABG Syringe ONLY Performed By: #### V BGC ####[place] [address] XR CHEST 1 VIEWon 05-18-2024 XR CHEST 1 VIEW Normal [facility] .Auto Diffon 05-17-2024 Basophil, Absolute 0.1 10 3/mcL Normal 0.0-0.3 [facility] Comment on above: Performed By: #### A DIFF, ANEU, LIPID, CBC, GFR, PBNP, MG, BMP ####[place] [phone] Basophils/100 WBC (Bld) 0.3 % Normal 0.0-2.5 [facility] Comment on above: Performed By: #### A DIFF, ANEU, LIPID, CBC, GFR, PBNP, MG, BMP ####[place] [address] Eosinophil, Absolute 0.8 10 3/mcL High 0.0-0.7 [facility] Comment on above: Performed By: #### A DIFF, ANEU, LIPID, CBC, GFR, PBNP, MG, BMP ####[address] [address] Eosinophils/100 WBC (Bld) 4.7 % Normal 0.0-6.0 [facility] Comment on above: Performed By: #### A DIFF, ANEU, LIPID, CBC, GFR, PBNP, MG, BMP ####[address] [address] Lymphocyte, Absolute 1.5 10 3/mcL Normal 0.9-4.3 [facility] Comment on above: Performed By: #### A DIFF, ANEU, LIPID, CBC, GFR, PBNP, MG, BMP ####[address] [address] Lymphocytes/100 WBC (Bld) 9.2 % Low 20.0-40.0 [facility] Comment on above: Performed By: #### A DIFF, ANEU, LIPID, CBC, GFR, PBNP, MG, BMP ####[address] [address] Monocyte, Absolute 1.2 10 3/mcL Normal 0.1-1.4 [facility] Comment on above: Performed By: #### A DIFF, ANEU, LIPID, CBC, GFR, PBNP, MG, BMP ####[address] [address] Monocytes/100 WBC (Bld) 7.5 % Normal 2.0-13.0 [facility] Comment on above: Performed By: #### A DIFF, ANEU, LIPID, CBC, GFR, PBNP, MG, BMP ####[address] [address] Neutrophils/100 WBC (Bld) 78.3 % High 50.0-75.0 [facility] Comment on above: Performed By: #### A DIFF, ANEU, LIPID, CBC, GFR, PBNP, MG, BMP ####[address] [address] .GFRon 05-17-2024 Estimated Glomerular Filtration Rate 113 ml/min/1.73sqm Normal [facility] Comment on above: Result Comment: [...] Performed By: #### M G, GFR, BMP ####[place] [address] Estimated Glomerular Filtration Rate 120 ml/min/1.73sqm [facility] Comment on above: Result Comment: [...] ANEU, LIPID, CBC, GFR, PBNP, MG, BMP ####[place] [address] .NEUABSon 05-17-2024 Neutrophil, Absolute 12.6 10 3/mcL High 2.3-8.1 [facility] Comment on above: Performed By: #### A DIFF, ANEU, LIPID, CBC, GFR, PBNP, MG, BMP ####[place] [address] BGon 05-17-2024 Base excess Calc (Bld) [Moles/Vol] 10.6 mmol/L [facility] Comment on above: Performed By: #### B G ####[place] [address] CO2 [Moles/Vol] 43.7 mmol/L Critically abnormal 22.0-30.0 [facility] Comment on above: Performed By: #### B G ####[address] [address] HCO3 (Bld) [Moles/Vol] 41.0 mmol/L High 21.0-29.0 [facility] Comment on above: Performed By: #### B G ####[address] [address] Oxygen (Bld) [Partial pressure] 127.6 mm[Hg] High 74.0-108.0 [facility] Comment on above: Performed By: #### B G ####[place] [address] Oxygen saturation in Blood 98.4 % High 92.0-96.0 [facility] Comment on above: Performed By: #### B G ####[place] [address] pCO2 89.0 mmHg Critically abnormal 32.0-46.0 [facility] Comment on above: Performed By: #### B G ####[place] [phone] pH (Bld) 7.281 [pH] Low 7.380-7.460 [facility] Comment on above: Performed By: #### B G ####[address] [address] Base excess Calc (Bld) [Moles/Vol] 11.1 mmol/L Normal [facility] Comment on above: Performed By: #### B G ####[address] [address] CO2 [Moles/Vol] 43.7 mmol/L Critically abnormal 22.0-30.0 [facility] Comment on above: Performed By: #### B G ####[address] [address] HCO3 (Bld) [Moles/Vol] 41.0 mmol/L High 21.0-29.0 [facility] Comment on above: Performed By: #### B G ####[address] [address] Oxygen (Bld) [Partial pressure] 63.4 mm[Hg] Low 74.0-108.0 [facility] Comment on above: Performed By: #### B G ####[place] [address] Oxygen saturation in Blood 91.3 % Low 92.0-96.0 [facility] Comment on above: Performed By: #### B G ####[address] [address] pCO2 86.1 mmHg Critically abnormal 32.0-46.0 [facility] Comment on above: Performed By: #### B G ####[place] [address] pH (Bld) 7.296 [pH] Low 7.380-7.460 [facility] Comment on above: Performed By: #### B G ####[place] [address] BMPon 05-17-2024 BUN/Creatinine Ratio 35.4 ratio High 10.0-22.0 [facility] Comment on above: Performed By: #### M Tiera, GFR, BMP ####[place] [phone] Calcium [Mass/Vol] 9.5 mg/dL Normal 8.7-10.4 [facility] Comment on above: Performed By: #### Rah Mott, GFR, BMP ####[place] [phone] Chloride [Moles/Vol] 96 mmol/L Low 98-110 [facility] Comment on above: Performed By: #### M Tiera, GFR, BMP ####[address] [address] CO2 [Moles/Vol] 39 mmol/L High 22-32 [facility] Comment on above: Performed By: #### M Tiera, GFR, BMP ####[place] [phone] Creatinine [Mass/Vol] 0.65 mg/dL Normal 0.50-1.20 [facility] Comment on above: Result Comment: Test ing performed on Backchat analyzer using enzymatic creatinine methodology. Performed By: #### M G, GFR, BMP ####[address] [address] Electrolyte Balance 4.0 mEq/L Normal 4.0-15.0 [facility] Comment on above: Performed By: #### M G, GFR, BMP ####[address] [address] Glucose [Mass/Vol] 95 mg/dL Normal 70-110 [facility] Comment on above: Performed By: #### M G, GFR, BMP ####[address] [address] Potassium [Moles/Vol] 4.7 mmol/L Normal 3.5-5.0 [facility] Comment on above: Performed By: #### M Tiera, GFR, BMP ####[address] [address] Sodium [Moles/Vol] 139 mmol/L Normal 136-145 [facility] Comment on above: Performed By: #### M G, GFR, BMP ####[address] [address] Urea nitrogen [Mass/Vol] 23.0 mg/dL High 8.0-22.0 [facility] Comment on above: Performed By: #### M G, GFR, BMP ####[address] [address] CO2 [Moles/Vol] mmol/L Critically abnormal 22-32 [facility] Comment on above: Performed By: #### A DIFF, ANEU, LIPID, CBC, GFR, PBNP, MG, BMP ####[address] [address] Electrolyte Balance Unable to Calculate Normal 4.0-15. 0 [facility] Comment on above: Result Comment: Unab le to calculate this test result accurately. Results used to calculate this test are outside the reportable range. Performed By: #### A DIFF, ANEU, LIPID, CBC, GFR, PBNP, MG, BMP ####[address] [address] BUN/Creatinine Ratio 38.5 ratio High 10.0-22.0 [facility] Comment on above: Performed By: #### A DIFF, ANEU, LIPID, CBC, GFR, PBNP, MG, BMP ####[address] [address] Calcium [Mass/Vol] 9.2 mg/dL Normal 8.7-10.4 [facility] Comment on above: Performed By: #### A DIFF, ANEU, LIPID, CBC, GFR, PBNP, MG, BMP ####[address] [address] Chloride [Moles/Vol] 97 mmol/L Low 98-110 [facility] Comment on above: Performed By: #### A DIFF, ANEU, LIPID, CBC, GFR, PBNP, MG, BMP ####[address] [address] Creatinine [Mass/Vol] 0.52 mg/dL Normal 0.50-1.20 [facility] Comment on above: Result Comment: Test ing performed on Backchat analyzer using enzymatic creatinine methodology. Performed By: #### A DIFF, ANEU, LIPID, CBC, GFR, PBNP, MG, BMP ####[address] [address] Glucose [Mass/Vol] 118 mg/dL High 70-110 [facility] Comment on above: Performed By: #### A DIFF, ANEU, LIPID, CBC, GFR, PBNP, MG, BMP ####[address] [address] Potassium [Moles/Vol] 4.2 mmol/L Normal 3.5-5.0 [facility] Comment on above: Performed By: #### A DIFF, ANEU, LIPID, CBC, GFR, PBNP, MG, BMP ####[address] [address] Sodium [Moles/Vol] 142 mmol/L Normal 136-145 [facility] Comment on above: Performed By: #### A DIFF, ANEU, LIPID, CBC, GFR, PBNP, MG, BMP ####[address] [address] Urea nitrogen [Mass/Vol] 20.0 mg/dL Normal 8.0-22.0 [facility] Comment on above: Performed By: #### A DIFF, ANEU, LIPID, CBC, GFR, PBNP, MG, BMP ####[place] [address] CBCon 05-17-2024 Erythrocyte distribution width (RBC) [Ratio] 15.0 % Normal 11.5-15.5 [facility] Comment on above: Performed By: #### A DIFF, ANEU, LIPID, CBC, GFR, PBNP, MG, BMP ####[place] [address] Hematocrit (Bld) [Volume fraction] 36.0 % Normal 34.0-46.0 [facility] Comment on above: Performed By: #### A DIFF, ANEU, LIPID, CBC, GFR, PBNP, MG, BMP ####[place] [address] Hgb 11.4 G/dL Low 12.0-16.0 [facility] Comment on above: Performed By: #### A DIFF, ANEU, LIPID, CBC, GFR, PBNP, MG, BMP ####[place] [address] MCH (RBC) [Entitic mass] 32.1 pg Normal 27.0-33.0 [facility] Comment on above: Performed By: #### A DIFF, ANEU, LIPID, CBC, GFR, PBNP, MG, BMP ####[place] [address] MCHC 31.7 G/dL Low 32.0-36.0 [facility] Comment on above: Performed By: #### A DIFF, ANEU, LIPID, CBC, GFR, PBNP, MG, BMP ####[place] [address] MCV (RBC) [Entitic vol] 101.1 fL High 80.0-99.0 [facility] Comment on above: Performed By: #### A DIFF, ANEU, LIPID, CBC, GFR, PBNP, MG, BMP ####[place] [address] Platelet 203 10 3/mcL Normal 150-450 [facility] Comment on above: Performed By: #### A DIFF, ANEU, LIPID, CBC, GFR, PBNP, MG, BMP ####[place] [address] Platelet mean volume (Bld) [Entitic vol] 9.4 fL Normal 6.6-10.5 [facility] Comment on above: Performed By: #### A DIFF, ANEU, LIPID, CBC, GFR, PBNP, MG, BMP ####[place] [address] RBC 3.56 10 6/mcL Low 4.10-5.30 [facility] Comment on above: Performed By: #### A DIFF, ANEU, LIPID, CBC, GFR, PBNP, MG, BMP ####[place] [address] WBC 16.1 10 3/mcL High 4.5-10.8 [facility] Comment on above: Performed By: #### A DIFF, ANEU, LIPID, CBC, GFR, PBNP, MG, BMP ####[place] [address] LABORATORYOrdered By: Kirti Laughlin on 05-17-2024 Cholesterol [...] 05-17-2024 Cholesterol [Mass/Vol] 171 mg/dL Normal 50-199 [facility] Comment on above: Result Comment: Chol esterol Reference Interval:Less than 200 [id number] Borderline high [id number] and [id number] High risk Performed By: #### A DIFF, ANEU, LIPID, CBC, GFR, PBNP, MG, BMP ####[address] [address] Cholesterol in HDL [Mass/Vol] 49 mg/dL Normal 40-59 [facility] Comment on above: Performed By: #### A DIFF, ANEU, LIPID, CBC, GFR, PBNP, MG, BMP ####[address] [address] Cholesterol in LDL [Mass/Vol] 103 mg/dL Normal 0-129 [facility] Comment on above: Performed By: #### A DIFF, ANEU, LIPID, CBC, GFR, PBNP, MG, BMP ####[address] [address] Triglyceride [Mass/Vol] 93 mg/dL Normal 3-149 [facility] Comment on above: Performed By: #### A DIFF, ANEU, LIPID, CBC, GFR, PBNP, MG, BMP ####[place] [address] MGon 05-17-2024 Magnesium [Mass/Vol] 2.4 mg/dL Normal 1.6-2.4 [facility] Comment on above: Performed By: #### M G, GFR, BMP ####[address] [address] Magnesium [Mass/Vol] 2.4 mg/dL Normal 1.6-2.4 [facility] Comment on above: Performed By: #### A DIFF, ANEU, LIPID, CBC, GFR, PBNP, MG, BMP ####[address] [address] PBNPon 05-17-2024 Natriuretic peptide B (Bld) [Mass/Vol] 3704 pg/mL High 0-450 [facility] Comment on above: Performed By: #### A DIFF, ANEU, LIPID, CBC, GFR, PBNP, MG, BMP ####[address] [address] XR CHEST 2 VIEWSon XR CHEST 2 VIEWS Normal [facility] .Auto Diffon 05-16-2024 Basophil, Absolute 0.1 10 3/mcL Normal 0.0-0.3 [facility] Comment on above: Performed By: #### G FR, CBC, ANEU, HFP, MG, BMP, ADIFF ####[address] [address] Basophils/100 WBC (Bld) 0.5 % Normal 0.0-2.5 [facility] Comment on above: Performed By: #### G FR, CBC, ANEU, HFP, MG, BMP, ADIFF ####[address] [address] Eosinophil, Absolute 0.6 10 3/mcL Normal 0.0-0.7 [facility] Comment on above: Performed By: #### G FR, CBC, ANEU, HFP, MG, BMP, ADIFF ####[address] [address] Eosinophils/100 WBC (Bld) 5.2 % Normal 0.0-6.0 [facility] Comment on above: Performed By: #### G FR, CBC, ANEU, HFP, MG, BMP, ADIFF ####[address] [address] Lymphocyte, Absolute 1.1 10 3/mcL Normal 0.9-4.3 [facility] Comment on above: Performed By: #### G FR, CBC, ANEU, HFP, MG, BMP, ADIFF ####[address] [address] Lymphocytes/100 WBC (Bld) 9.0 % Low 20.0-40.0 [facility] Comment on above: Performed By: #### G FR, CBC, ANEU, HFP, MG, BMP, ADIFF ####[address] [address] Monocyte, Absolute 1.0 10 3/mcL Normal 0.1-1.4 [facility] Comment on above: Performed By: #### G FR, CBC, ANEU, HFP, MG, BMP, ADIFF ####[address] [address] Monocytes/100 WBC (Bld) 7.9 % Normal 2.0-13.0 [facility] Comment on above: Performed By: #### G FR, CBC, ANEU, HFP, MG, BMP, ADIFF ####[place] [id number] [place] [address] Neutrophils/100 WBC (Bld) 77.4 % High 50.0-75.0 [facility] MAIN Comment on above: Performed By: #### G FR, CBC, ANEU, HFP, MG, BMP, ADIFF ####[place] [id number] [place] [address] .GFRon 05-16-2024 GFR/1.73 sq M.predicted among non-blacks MDRD (S/P/Bld) [Vol rate/Area] mL/min/{1.73_m2} [facility] MAIN Comment on above: Result Comment: [...] Performed By: #### M G, BMP, GFR ####[address] [address] Estimated Glomerular Filtration Rate 119 ml/min/1.73sqm [facility] MAIN Comment on above: Result Comment: [...] results. Performed By: #### G FR, CBC, ANEU, HFP, MG, BMP, ADIFF ####[address] [address] .NEUABSon 05-16-2024 Neutrophil, Absolute 9.3 10 3/mcL High 2.3-8.1 [facility] MAIN Comment on above: Performed By: #### G FR, CBC, ANEU, HFP, MG, BMP, ADIFF ####[place] [address] A1Con 05-16-2024 Glucose [Mass/Vol] 105 mg/dL Normal [facility] MAIN Comment on above: Order Comment: Add o n lab Result Comment: Roby mated Average Glucose calculated by equation ((28.7xA1C)-46.7)Estimated average glucose (eAG) is a calculated value from Hemoglobin A1C and is training representative of the average blood glucose level in the last 2-3 month period.Normal range: less than 114 mg/dL Performed By: #### A 1C ####[place] [address] HbA1c (Bld) [Mass fraction] 5.3 % Normal 4.0-6.0 [facility] MAIN Comment on above: Order Comment: Add o n lab Performed By: #### A 1C ####[place] [address] BMPon 05-16-2024 BUN/Creatinine Ratio 40.0 ratio High 10.0-22.0 [facility] MAIN Comment on above: Performed By: #### M Tiera, BMP, GFR ####[address] [address] Calcium [Mass/Vol] 8.8 mg/dL Normal 8.7-10.4 [facility] MAIN Comment on above: Performed By: #### M Tiera, BMP, GFR ####[address] [address] Chloride [Moles/Vol] 100 mmol/L Normal 98-110 [facility] MAIN Comment on above: Performed By: #### M Tiera, BMP, GFR ####[address] [address] CO2 [Moles/Vol] 37 mmol/L High 2232 [facility] MAIN Comment on above: Performed By: #### Rah Mott, BMP, GFR ####[address] [address] Creatinine [Mass/Vol] 0.45 mg/dL Low 0.50-1.20 [facility] MAIN Comment on above: Result Comment: Test ing performed on Backchat analyzer using enzymatic creatinine methodology. Performed By: #### Rah Mott, BMP, GFR ####[address] [address] Electrolyte Balance 2.0 mEq/L Low 4.0-15.0 [facility] MAIN Comment on above: Performed By: #### Rah Mott, BMP, GFR ####[address] [address] Glucose [Mass/Vol] 105 mg/dL Normal 70-110 [facility] MAIN Comment on above: Performed By: #### Rah Mott, BMP, GFR ####[address] [address] Potassium [Moles/Vol] 5.2 mmol/L High 3.5-5.0 [facility] MAIN Comment on above: Result Comment: Spec imen slightly hemolyzed. Performed By: #### Rah Mott, BMP, GFR ####[address] [address] Sodium [Moles/Vol] 139 mmol/L Normal 136-145 [facility] MAIN Comment on above: Performed By: #### Rah Mott, BMP, GFR ####[address] [address] Urea nitrogen [Mass/Vol] 18.0 mg/dL Normal 8.0-22.0 [facility] MAIN Comment on above: Performed By: #### Rah Mott, BMP, GFR ####[address] [address] CO2 [Moles/Vol] 39 mmol/L High 22-32 [facility] MAIN Comment on above: Performed By: #### G FR, CBC, ANEU, HFP, MG, BMP, ADIFF ####[place] [id number] Electrolyte Balance 3.0 mEq/L Low 4.0-15.0 [facility] MAIN Comment on above: Performed By: #### G FR, CBC, ANEU, HFP, MG, BMP, ADIFF ####[place] [address] BUN/Creatinine Ratio 33.3 ratio High 10.0-22.0 [facility] MAIN Comment on above: Performed By: #### G FR, CBC, ANEU, HFP, MG, BMP, ADIFF ####[place] [id number] Calcium [Mass/Vol] 8.9 mg/dL Normal 8.7-10.4 [facility] MAIN Comment on above: Performed By: #### G FR, CBC, ANEU, HFP, MG, BMP, ADIFF ####[place] [id number] Chloride [Moles/Vol] 99 mmol/L Normal 98-110 [facility] MAIN Comment on above: Performed By: #### G FR, CBC, ANEU, HFP, MG, BMP, ADIFF ####[place] [address] Creatinine [Mass/Vol] 0.54 mg/dL Normal 0.50-1.20 [facility] MAIN Comment on above: Result Comment: Test ing performed on Backchat analyzer using enzymatic creatinine methodology. Performed By: #### G FR, CBC, ANEU, HFP, MG, BMP, ADIFF ####[place] [address] Glucose [Mass/Vol] 93 mg/dL Normal 70-110 [facility] MAIN Comment on above: Performed By: #### G FR, CBC, ANEU, HFP, MG, BMP, ADIFF ####[place] [address] Potassium [Moles/Vol] 4.4 mmol/L Normal 3.5-5.0 [facility] MA[facility] Comment on above: Performed By: #### G FR, CBC, ANEU, HFP, MG, BMP, ADIFF ####[place] [address] Sodium [Moles/Vol] 141 mmol/L Normal 136-145 [facility] MAIN Comment on above: Performed By: #### G FR, CBC, ANEU, HFP, MG, BMP, ADIFF ####[place] [address] Urea nitrogen [Mass/Vol] 18.0 mg/dL Normal 8.0-22.0 [facility] MAIN Comment on above: Performed By: #### G FR, CBC, ANEU, HFP, MG, BMP, ADIFF ####[place] [address] CBCon 05-16-2024 Erythrocyte distribution width (RBC) [Ratio] 14.7 % Normal 11.5-15.5 [facility] MAIN Comment on above: Performed By: #### G FR, CBC, ANEU, HFP, MG, BMP, ADIFF ####[place] [address] Hematocrit (Bld) [Volume fraction] 34.0 % Normal 34.0-46.0 [facility] MAIN Comment on above: Performed By: #### G FR, CBC, ANEU, HFP, MG, BMP, ADIFF ####[place] [address] Hgb 11.0 G/dL Low 12.0-16.0 [facility] MAIN Comment on above: Performed By: #### G FR, CBC, ANEU, HFP, MG, BMP, ADIFF ####[place] [address] MCH (RBC) [Entitic mass] 32.2 pg Normal 27.0-33.0 [facility] MAIN Comment on above: Performed By: #### G FR, CBC, ANEU, HFP, MG, BMP, ADIFF ####[place] [address] MCHC 32.4 G/dL Normal 32.0-36.0 [facility] MAIN Comment on above: Performed By: #### G FR, CBC, ANEU, HFP, MG, BMP, ADIFF ####[place] [address] MCV (RBC) [Entitic vol] 99.5 fL High 80.0-99.0 [facility] MAIN Comment on above: Performed By: #### G FR, CBC, ANEU, HFP, MG, BMP, ADIFF ####[place] [address] Platelet 175 10 3/mcL Normal 150-450 [facility] MAIN Comment on above: Performed By: #### G FR, CBC, ANEU, HFP, MG, BMP, ADIFF ####[place] [address] Platelet mean volume (Bld) [Entitic vol] 9.1 fL Normal 6.6-10.5 [facility] MAIN Comment on above: Performed By: #### G FR, CBC, ANEU, HFP, MG, BMP, ADIFF ####[place] [address] RBC 3.42 10 6/mcL Low 4.10-5.30 [facility] MAIN Comment on above: Performed By: #### G FR, CBC, ANEU, HFP, MG, BMP, ADIFF ####[place] [address] WBC 12.0 10 3/mcL High 4.5-10.8 [facility] MAIN Comment on above: Performed By: #### G FR, CBC, ANEU, HFP, MG, BMP, ADIFF ####[place] [address] HFPon 05-16-2024 Bili Indirect 0.2 mg/dL Normal 0.1-10.0 [facility] MAIN Comment on above: Performed By: #### G FR, CBC, ANEU, HFP, MG, BMP, ADIFF ####[place] [address] Albumin Level 2.5 G/dL Low 3.2-4.8 [facility] MAIN Comment on above: Performed By: #### G FR, CBC, ANEU, HFP, MG, BMP, ADIFF ####[place] [address] Albumin/Globulin [Mass ratio] 0.6 {ratio} Low 0.9-1.6 [facility] MAIN Comment on above: Performed By: #### G FR, CBC, ANEU, HFP, MG, BMP, ADIFF ####[place] [address] ALP [Catalytic activity/Vol] 87 U/L Normal 38-126 [facility] MAIN Comment on above: Performed By: #### G FR, CBC, ANEU, HFP, MG, BMP, ADIFF ####[place] [address] ALT [Catalytic activity/Vol] 38 U/L Normal 10-49 [facility] MAIN Comment on above: Performed By: #### G FR, CBC, ANEU, HFP, MG, BMP, ADIFF ####[place] [address] AST [Catalytic activity/Vol] 21 U/L Normal 8-34 [facility] MAIN Comment on above: Performed By: #### G FR, CBC, ANEU, HFP, MG, BMP, ADIFF ####[place] [address] Bili Direct 0.1 mg/dL Normal 0.0-0.4 [facility] MAIN Comment on above: Result Comment: Use of this assay is not recommended for patients undergoing treatment with eltrombopag due to the potential for falsely elevated results. Performed By: #### G FR, CBC, ANEU, HFP, MG, BMP, ADIFF ####[place] [address] Bili Total 0.30 mg/dL Normal 0.20-1.20 [facility] MAIN Comment on above: Result Comment: Use of this assay is not recommended for patients undergoing treatment with eltrombopag due to the potential for falsely elevated results. Performed By: #### G FR, CBC, ANEU, HFP, MG, BMP, ADIFF ####[place] [address] Globulin 4.0 G/dL High 1.5-3.8 [facility] MAIN Comment on above: Performed By: #### G FR, CBC, ANEU, HFP, MG, BMP, ADIFF ####[address] [address] Total Protein 6.5 G/dL Normal 5.7-8.2 [facility] MAIN Comment on above: Performed By: #### G FR, CBC, ANEU, HFP, MG, BMP, ADIFF ####[place] [address] LABORATORYOrdered By: SYSTEM SYSTEM on 05-16-2024 Bili [...] calculated value from Hemoglobin A1C and is training representative of the average blood glucose level in the last 2-3 month period. Normal range: less than 114 mg/dL HbA1c (Bld) [Mass fraction] 5.3 % Normal 4.0 - 6.0 % Auto Chem SS MGon 05-16-2024 Magnesium [Mass/Vol] 2.3 mg/dL Normal 1.6-2.4 [facility] MAIN Comment on above: Performed By: #### M G, BMP, GFR ####[address] [address] Magnesium [Mass/Vol] 2.4 mg/dL Normal 1.6-2.4 [facility] MAIN Comment on above: Performed By: #### G FR, CBC, ANEU, HFP, MG, BMP, ADIFF ####[address] [address] .Auto Diffon 05-15-2024 Basophil, Absolute 0.1 10 3/mcL Normal 0.0-0.3 [facility] MAIN Comment on above: Performed By: #### A DAISY, CBC, ADIFF, BMP, GFR, MG ####[place] [address] Basophils/100 WBC (Bld) 0.7 % Normal 0.0-2.5 [facility] MAIN Comment on above: Performed By: #### A DAISY, CBC, ADIFF, BMP, GFR, MG ####[address] [address] Eosinophil, Absolute 0.8 10 3/mcL High 0.0-0.7 [facility] MAIN Comment on above: Performed By: #### A DAISY, CBC, ADIFF, BMP, GFR, MG ####[address] [address] Eosinophils/100 WBC (Bld) 6.2 % High 0.0-6.0 [facility] MAIN Comment on above: Performed By: #### A DAISY, CBC, ADIFF, BMP, GFR, MG ####[address] [address] Lymphocyte, Absolute 1.5 10 3/mcL Normal 0.9-4.3 [facility] MAIN Comment on above: Performed By: #### A DAISY, CBC, ADIFF, BMP, GFR, MG ####[address] [address] Lymphocytes/100 WBC (Bld) 11.7 % Low 20.0-40.0 [facility] MAIN Comment on above: Performed By: #### A DAISY, CBC, ADIFF, BMP, GFR, MG ####[address] [address] Monocyte, Absolute 1.5 10 3/mcL High 0.1-1.4 [facility] MAIN Comment on above: Performed By: #### A DAISY, CBC, ADIFF, BMP, GFR, MG ####[address] [address] Monocytes/100 WBC (Bld) 11.2 % Normal 2.0-13.0 [facility] MAIN Comment on above: Performed By: #### A DAISY, CBC, ADIFF, BMP, GFR, MG ####[address] [address] Neutrophils/100 WBC (Bld) 70.2 % Normal 50.0-75.0 [facility] MAIN Comment on above: Performed By: #### A DAISY, CBC, ADIFF, BMP, GFR, MG ####[place] [address] .GFRon 05-15-2024 Estimated Glomerular Filtration Rate 117 ml/min/1.73sqm [facility] MAIN Comment on above: Result Comment: [...] theeGFR results. Performed By: #### B MP, MG, GFR ####[place] [address] Estimated Glomerular Filtration Rate 120 ml/min/1.73sqm [facility] MAIN Comment on above: Result Comment: [...] A DAISY, CBC, ADIFF, BMP, GFR, MG ####[place] [address] .NEUABSon 05-15-2024 Neutrophil, Absolute 9.2 10 3/mcL High 2.3-8.1 [facility] MAIN Comment on above: Performed By: #### A DAISY, CBC, ADIFF, BMP, GFR, MG ####[address] [address] BMPon 05-15-2024 BUN/Creatinine Ratio 33.3 ratio High 10.0-22.0 [facility] MAIN Comment on above: Performed By: #### B MP, MG, GFR ####[address] [address] Calcium [Mass/Vol] 8.7 mg/dL Normal 8.7-10.4 [facility] MAIN Comment on above: Performed By: #### B MP, MG, GFR ####[address] [address] Chloride [Moles/Vol] 99 mmol/L Normal 98-110 [facility] MAIN Comment on above: Performed By: #### B MP, MG, GFR ####[place] [address] CO2 [Moles/Vol] 39 mmol/L High 22-32 [facility] MAIN Comment on above: Performed By: #### B MP, MG, GFR ####[address] [address] Creatinine [Mass/Vol] 0.57 mg/dL Normal 0.50-1.20 [facility] MAIN Comment on above: Result Comment: Test ing performed on Backchat analyzer using enzymatic creatinine methodology. Performed By: #### B MP, MG, GFR ####[address] [address] Electrolyte Balance 2.0 mEq/L Low 4.0-15.0 [facility] MAIN Comment on above: Performed By: #### B MP, MG, GFR ####[address] [address] Glucose [Mass/Vol] 98 mg/dL Normal 70-110 [facility] MAIN Comment on above: Performed By: #### B MP, MG, GFR ####[address] [address] Potassium [Moles/Vol] 4.6 mmol/L Normal 3.5-5.0 [facility] MAIN Comment on above: Performed By: #### B MP, MG, GFR ####[address] [address] Sodium [Moles/Vol] 140 mmol/L Normal 136-145 [facility] MAIN Comment on above: Performed By: #### B MP, MG, GFR ####[address] [address] Urea nitrogen [Mass/Vol] 19.0 mg/dL Normal 8.0-22.0 [facility] MAIN Comment on above: Performed By: #### B MP, MG, GFR ####[address] [address] BUN/Creatinine Ratio 37.3 ratio High 10.0-22.0 [facility] MAIN Comment on above: Performed By: #### A DAISY, CBC, ADIFF, BMP, GFR, MG ####[address] [address] Calcium [Mass/Vol] 8.7 mg/dL Normal 8.7-10.4 [facility] MAIN Comment on above: Performed By: #### A DAISY, CBC, ADIFF, BMP, GFR, MG ####[address] [address] Chloride [Moles/Vol] 100 mmol/L Normal 98-110 [facility] MAIN Comment on above: Performed By: #### A DAISY, CBC, ADIFF, BMP, GFR, MG ####[address] [address] CO2 [Moles/Vol] 37 mmol/L High 22-32 [facility] MAIN Comment on above: Performed By: #### A DAISY, CBC, ADIFF, BMP, GFR, MG ####[address] [address] Creatinine [Mass/Vol] 0.51 mg/dL Normal 0.50-1.20 [facility] MAIN Comment on above: Result Comment: Test ing performed on Backchat analyzer using enzymatic creatinine methodology. Performed By: #### A DAISY, CBC, ADIFF, BMP, GFR, MG ####[address] [address] Electrolyte Balance 3.0 mEq/L Low 4.0-15.0 [facility] MAIN Comment on above: Performed By: #### A DAISY, CBC, ADIFF, BMP, GFR, MG ####[place] [address] Glucose [Mass/Vol] 89 mg/dL Normal 70-110 [facility] MAIN Comment on above: Performed By: #### A DAISY, CBC, ADIFF, BMP, GFR, MG ####[place] [id number] Potassium [Moles/Vol] 4.8 mmol/L Normal 3.5-5.0 [facility] MAIN Comment on above: Performed By: #### A DAISY, CBC, ADIFF, BMP, GFR, MG ####[place] [address] Sodium [Moles/Vol] 140 mmol/L Normal 136-145 [facility] MAIN Comment on above: Performed By: #### A DAISY, CBC, ADIFF, BMP, GFR, MG ####[place] [address] Urea nitrogen [Mass/Vol] 19.0 mg/dL Normal 8.0-22.0 [facility] MAIN Comment on above: Performed By: #### A DAISY, CBC, ADIFF, BMP, GFR, MG ####[place] [address] CBCon 05-15-2024 Erythrocyte distribution width (RBC) [Ratio] 14.8 % Normal 11.5-15.5 [facility] MAIN Comment on above: Performed By: #### A DAISY, CBC, ADIFF, BMP, GFR, MG ####[place] [address] Hematocrit (Bld) [Volume fraction] 32.4 % Low 34.0-46.0 [facility] MAIN Comment on above: Performed By: #### A DAISY, CBC, ADIFF, BMP, GFR, MG ####[place] [address] Hgb 10.3 G/dL Low 12.0-16.0 [facility] MAIN Comment on above: Performed By: #### A DAISY, CBC, ADIFF, BMP, GFR, MG ####[place] [address] MCH (RBC) [Entitic mass] 31.5 pg Normal 27.0-33.0 [facility] MAIN Comment on above: Performed By: #### A DAISY, CBC, ADIFF, BMP, GFR, MG ####[place] [address] MCHC 31.9 G/dL Low 32.0-36.0 [facility] MAIN Comment on above: Performed By: #### A DAISY, CBC, ADIFF, BMP, GFR, MG ####[place] [address] MCV (RBC) [Entitic vol] 98.8 fL Normal 80.0-99.0 [facility] MAIN Comment on above: Performed By: #### A DAISY, CBC, ADIFF, BMP, GFR, MG ####[place] [address] Platelet 202 10 3/mcL Normal 150-450 [facility] MAIN Comment on above: Performed By: #### A DAISY, CBC, ADIFF, BMP, GFR, MG ####[place] [address] Platelet mean volume (Bld) [Entitic vol] 9.4 fL Normal 6.6-10.5 [facility] MAIN Comment on above: Performed By: #### A DAISY, CBC, ADIFF, BMP, GFR, MG ####[place] [address] RBC 3.28 10 6/mcL Low 4.10-5.30 [facility] MAIN Comment on above: Performed By: #### A DAISY, CBC, ADIFF, BMP, GFR, MG ####[place] [address] WBC 13.1 10 3/mcL High 4.5-10.8 [facility] MAIN Comment on above: Performed By: #### A DAISY, CBC, ADIFF, BMP, GFR, MG ####[place] [address] LABORATORYOrdered By: Yan Culp on 05-15-2024 Blood Glucose Testing Reason Routine (05/15/24 3:15 PM) [facility] Glucose [Mass/Vol] 126 mg/dL High 70 - 110 mg/dL [facility] Blood Glucose Testing Reason Routine (05/15/24 11:15 AM) [facility] Glucose [Mass/Vol] 132 mg/dL High 70 - 110 mg/dL [facility] Blood Glucose Testing Reason Routine (05/15/24 7:30 AM) [facility] Glucose [Mass/Vol] 116 mg/dL High 70 - 110 mg/dL [facility] MGon 05-15-2024 Magnesium [Mass/Vol] 2.2 mg/dL Normal 1.6-2.4 [facility] MAIN Comment on above: Performed By: #### B MP, MG, GFR ####[place] [address] Magnesium [Mass/Vol] 2.3 mg/dL Normal 1.6-2.4 [facility] MAIN Comment on above: Performed By: #### A DAISY, CBC, ADIFF, BMP, GFR, MG ####[address] [address] VBGon 05-15-2024 BE Venous 9.7 mmol/L High -3.0-3.0 [facility] MAIN Comment on above: Performed By: #### V BG ####[address] [address] CO2 [Moles/Vol] 38.1 mmol/L High 22.0-32.0 [facility] MAIN Comment on above: Performed By: #### V BG ####[address] [address] HCO3 (Bld) [Moles/Vol] 36.2 mmol/L High 21.0-30.0 [facility] MAIN Comment on above: Performed By: #### V BG ####[place] [address] Oxygen saturation in Blood 97.8 % High 70.0-75.0 [facility] MA[facility] Comment on above: Performed By: #### V BG ####[place] [address] pCO2 Satish 60.0 mmHg High 41.0-51.0 [facility] Comment on above: Performed By: #### V BG ####[place] [address] pH Venous 7.399 Normal 7.380-7.460 [facility] MAIN Comment on above: Performed By: #### V BG ####[place] [address] pO2 Satish 101.4 mmHg High 35.0-40.0 [facility] MA[facility] Comment on above: Performed By: #### V BG ####[place] [address] XR CHEST 1 VIEWon 05-15-2024 XR CHEST 1 VIEW Normal [facility] MA[facility] .Auto Diffon 05-14-2024 Basophil, Absolute 0.0 10 3/mcL Normal 0.0-0.3 [facility] Comment on above: Performed By: #### B MP, ANEU, GFR, ADIFF, CBC, MG ####[place] [address] Basophils/100 WBC (Bld) 0.3 % Normal 0.0-2.5 [facility] MAIN Comment on above: Performed By: #### B MP, ANEU, GFR, ADIFF, CBC, MG ####[place] [address] Eosinophil, Absolute 0.6 10 3/mcL Normal 0.0-0.7 [facility] MAIN Comment on above: Performed By: #### B MP, ANEU, GFR, ADIFF, CBC, MG ####[place] [address] Eosinophils/100 WBC (Bld) 4.9 % Normal 0.0-6.0 [facility] Comment on above: Performed By: #### B MP, ANEU, GFR, ADIFF, CBC, MG ####[address] [address] Lymphocyte, Absolute 1.1 10 3/mcL Normal 0.9-4.3 [facility] MAIN Comment on above: Performed By: #### B MP, ANEU, GFR, ADIFF, CBC, MG ####[address] [address] Lymphocytes/100 WBC (Bld) 8.6 % Low 20.0-40.0 [facility] Comment on above: Performed By: #### B MP, ANEU, GFR, ADIFF, CBC, MG ####[address] [address] Monocyte, Absolute 1.5 10 3/mcL High 0.1-1.4 [facility] Comment on above: Performed By: #### B MP, ANEU, GFR, ADIFF, CBC, MG ####[address] [address] Monocytes/100 WBC (Bld) 12.0 % Normal 2.0-13.0 [facility] MA[facility] Comment on above: Performed By: #### B MP, ANEU, GFR, ADIFF, CBC, MG ####[address] [address] Neutrophils/100 WBC (Bld) 74.2 % Normal 50.0-75.0 [facility] Comment on above: Performed By: #### B MP, ANEU, GFR, ADIFF, CBC, MG ####[address] [address] .GFRon 05-14-2024 Estimated Glomerular Filtration Rate 120 ml/min/1.73sqm Normal [facility] MAIN Comment on above: Result Comment: [...] results. Performed By: #### G FR, MG, BMP ####[place] [address] Estimated Glomerular Filtration Rate 118 ml/min/1.73sqm [facility] MAIN Comment on above: Result Comment: [...] results. Performed By: #### B MP, ANEU, GFR, ADIFF, CBC, MG ####[place] [address] .NEUABSon 05-14-2024 Neutrophil, Absolute 9.4 10 3/mcL High 2.3-8.1 [facility] MAIN Comment on above: Performed By: #### B MP, ANEU, GFR, ADIFF, CBC, MG ####[place] [address] BGon 05-14-2024 Base excess Calc (Bld) [Moles/Vol] 9.0 mmol/L [facility] MAIN Comment on above: Performed By: #### B G ####[place] [address] CO2 [Moles/Vol] 37.5 mmol/L High 22.0-30.0 [facility] MAIN Comment on above: Performed By: #### B G ####[place] [address] HCO3 (Bld) [Moles/Vol] 35.6 mmol/L High 21.0-29.0 [facility] MAIN Comment on above: Performed By: #### B G ####[place] [id number] Oxygen (Bld) [Partial pressure] 77.3 mm[Hg] Normal 74.0-108.0 [facility] MAIN Comment on above: Performed By: #### B G ####[place] [address] Oxygen saturation in Blood 94.7 % Normal 92.0-96.0 [facility] Comment on above: Performed By: #### B G ####[place] [address] pCO2 59.4 mmHg High 32.0-46.0 [facility] Comment on above: Performed By: #### B G ####[place] [address] pH (Bld) 7.396 [pH] Normal 7.380-7.460 [facility] Comment on above: Performed By: #### B G ####[place] [address] BMPon 05-14-2024 BUN/Creatinine Ratio 35.3 ratio High 10.0-22.0 [facility] Comment on above: Performed By: #### G FR, MG, BMP ####[place] [address] Calcium [Mass/Vol] 9.1 mg/dL Normal 8.7-10.4 [facility] Comment on above: Performed By: #### G FR, MG, BMP ####[place] [id number] Chloride [Moles/Vol] 103 mmol/L Normal 98-110 [facility] Comment on above: Performed By: #### G FR, MG, BMP ####[place] [id number] CO2 [Moles/Vol] 37 mmol/L High 22-32 [facility] Comment on above: Performed By: #### G FR, MG, BMP ####[id number] [place], [place] [address] Creatinine [Mass/Vol] 0.51 mg/dL Normal 0.50-1.20 [facility] Comment on above: Result Comment: Test ing performed on [employer] analyzer using enzymatic creatinine methodology. Performed By: #### G FR MG, BMP ####[place] [address] Electrolyte Balance 3.0 mEq/L Low 4.0-15.0 [facility] Comment on above: Performed By: #### G FR, MG, BMP ####[place] [address] Glucose [Mass/Vol] 113 mg/dL High 70-110 [facility] Comment on above: Performed By: #### Tiera FR MG, BMP ####[place] [address] Potassium [Moles/Vol] 4.3 mmol/L Normal 3.5-5.0 [facility] Comment on above: Performed By: #### G FR, MG, BMP ####[place] [address] Sodium [Moles/Vol] 143 mmol/L Normal 136-145 [facility] Comment on above: Performed By: #### Tiera FR, MG, BMP ####[place] [address] Urea nitrogen [Mass/Vol] 18.0 mg/dL Normal 8.0-22.0 [facility] Comment on above: Performed By: #### G FR, MG, BMP ####[place] [address] BUN/Creatinine Ratio 48.2 ratio High 10.0-22.0 [facility] Comment on above: Performed By: #### B MP, ANEU, GFR, ADIFF, CBC, MG ####[place] [phone] Calcium [Mass/Vol] 9.1 mg/dL Normal 8.7-10.4 [facility] Comment on above: Performed By: #### B MP, ANEU, GFR, ADIFF, CBC, MG ####[address] [address] Chloride [Moles/Vol] 103 mmol/L Normal 98-110 [facility] Comment on above: Performed By: #### B MP, ANEU, GFR, ADIFF, CBC, MG ####[address] [address] CO2 [Moles/Vol] 39 mmol/L High 22-32 [facility] Comment on above: Performed By: #### B MP, ANEU, GFR, ADIFF, CBC, MG ####[address] [address] Creatinine [Mass/Vol] 0.56 mg/dL Normal 0.50-1.20 [facility] Comment on above: Result Comment: Test ing performed on Backchat analyzer using enzymatic creatinine methodology. Performed By: #### B MP, ANEU, GFR, ADIFF, CBC, MG ####[address] [address] Electrolyte Balance 3.0 mEq/L Low 4.0-15.0 [facility] Comment on above: Performed By: #### B MP, ANEU, GFR, ADIFF, CBC, MG ####[address] [address] Glucose [Mass/Vol] 120 mg/dL High 70-110 [facility] Comment on above: Performed By: #### B MP, ANEU, GFR, ADIFF, CBC, MG ####[address] [address] Potassium [Moles/Vol] 4.4 mmol/L Normal 3.5-5.0 [facility] Comment on above: Result Comment: Spec imen slightly hemolyzed. Performed By: #### B MP, ANEU, GFR, ADIFF, CBC, MG ####[address] [address] Sodium [Moles/Vol] 145 mmol/L Normal 136-145 [facility] Comment on above: Performed By: #### B MP, ANEU, GFR, ADIFF, CBC, MG ####[address] [address] Urea nitrogen [Mass/Vol] 27.0 mg/dL High 8.0-22.0 [facility] Comment on above: Performed By: #### B MP, ANEU, GFR, ADIFF, CBC, MG ####[place] [address] CBCon 05-14-2024 Erythrocyte distribution width (RBC) [Ratio] 14.7 % Normal 11.5-15.5 [facility] Comment on above: Performed By: #### B MP, ANEU, GFR, ADIFF, CBC, MG ####[place] [address] Hematocrit (Bld) [Volume fraction] 31.8 % Low 34.0-46.0 [facility] Comment on above: Performed By: #### B MP, ANEU, GFR, ADIFF, CBC, MG ####[place] [address] Hgb 10.7 G/dL Low 12.0-16.0 [facility] Comment on above: Performed By: #### B MP, ANEU, GFR, ADIFF, CBC, MG ####[place] [address] MCH (RBC) [Entitic mass] 33.1 pg High 27.0-33.0 [facility] Comment on above: Performed By: #### B MP, ANEU, GFR, ADIFF, CBC, MG ####[place] [address] MCHC 33.5 G/dL Normal 32.0-36.0 [facility] Comment on above: Performed By: #### B MP, ANEU, GFR, ADIFF, CBC, MG ####[place] [address] MCV (RBC) [Entitic vol] 99.0 fL Normal 80.0-99.0 [facility] Comment on above: Performed By: #### B MP, ANEU, GFR, ADIFF, CBC, MG ####[place] [address] Platelet 173 10 3/mcL Normal 150-450 [facility] Comment on above: Performed By: #### B MP, ANEU, GFR, ADIFF, CBC, MG ####[place] [address] Platelet mean volume (Bld) [Entitic vol] 9.8 fL Normal 6.6-10.5 [facility] Comment on above: Performed By: #### B MP, ANEU, GFR, ADIFF, CBC, MG ####[place] [address] RBC 3.22 10 6/mcL Low 4.10-5.30 [facility] Comment on above: Performed By: #### B MP, ANEU, GFR, ADIFF, CBC, MG ####[place] [address] WBC 12.7 10 3/mcL High 4.5-10.8 [facility] Comment on above: Performed By: #### B MP, ANEU, GFR, ADIFF, CBC, MG ####[place] [address] LABORATORYOrdered By: Colin hernandez on 05-14-2024 Blood Glucose Interventions Administered food/juice (05/14/24 1:40 PM) [facility] MGon 05-14-2024 Magnesium [Mass/Vol] 2.2 mg/dL Normal 1.6-2.4 [facility] Comment on above: Performed By: #### G FR, MG, BMP ####[place] [address] Magnesium [Mass/Vol] 2.6 mg/dL High 1.6-2.4 [facility] Comment on above: Performed By: #### B MP, ANEU, GFR, ADIFF, CBC, MG ####[place] [address] XR ANKLE MINIMUM 3 VIEWS RIG HTon 05-14-2024 XR ANKLE MINIMUM 3 VIEWS RIGHT Normal [facility] XR CHEST 1 VIEWon 05-14-2024 XR CHEST 1 VIEW Normal [facility] XR CHEST 1 VIEW Normal [facility] .Auto Diffon 05-13-2024 Basophil, Absolute 0.0 10 3/mcL Normal 0.0-0.3 [facility] Comment on above: Performed By: #### G FR, CBC, TROPHS, ADIFF, MG, PHOS, CAION, CMP, MYCO, ANEU ####[address] [address] Basophils/100 WBC (Bld) 0.3 % Normal 0.0-2.5 [facility] Comment on above: Performed By: #### G FR, CBC, TROPHS, ADIFF, MG, PHOS, CAION, CMP, MYCO, ANEU ####[address] [address] Eosinophil, Absolute 0.5 10 3/mcL Normal 0.0-0.7 [facility] Comment on above: Performed By: #### G FR, CBC, TROPHS, ADIFF, MG, PHOS, CAION, CMP, MYCO, ANEU ####[address] [address] Eosinophils/100 WBC (Bld) 3.3 % Normal 0.0-6.0 [facility] Comment on above: Performed By: #### G FR, CBC, TROPHS, ADIFF, MG, PHOS, CAION, CMP, MYCO, ANEU ####[address] [address] Lymphocyte, Absolute 0.8 10 3/mcL Low 0.9-4.3 [facility] Comment on above: Performed By: #### G FR, CBC, TROPHS, ADIFF, MG, PHOS, CAION, CMP, MYCO, ANEU ####[address] [address] Lymphocytes/100 WBC (Bld) 6.1 % Low 20.0-40.0 [facility] Comment on above: Performed By: #### G FR, CBC, TROPHS, ADIFF, MG, PHOS, CAION, CMP, MYCO, ANEU ####[address] [address] Monocyte, Absolute 1.5 10 3/mcL High 0.1-1.4 [facility] Comment on above: Performed By: #### G FR, CBC, TROPHS, ADIFF, MG, PHOS, CAION, CMP, MYCO, ANEU ####[place] [id number] [address] [place] [address] Monocytes/100 WBC (Bld) 10.7 % Normal 2.0-13.0 [facility] Comment on above: Performed By: #### G FR, CBC, TROPHS, ADIFF, MG, PHOS, CAION, CMP, MYCO, ANEU ####[address] [address] Neutrophils/100 WBC (Bld) 79.6 % High 50.0-75.0 [facility] Comment on above: Performed By: #### G FR, CBC, TROPHS, ADIFF, MG, PHOS, CAION, CMP, MYCO, ANEU ####[address] [address] .GFRon 05-13-2024 Estimated Glomerular Filtration Rate 116 ml/min/1.73sqm [facility] Comment on above: Result Comment: [...] Performed By: #### M G, GFR, BMP ####[address] [address] Estimated Glomerular Filtration Rate 109 ml/min/1.73sqm [facility] Comment on above: Result Comment: [...] results. Performed By: #### G FR, CBC, TROPHS, ADIFF, MG, PHOS, CAION, CMP, MYCO, ANEU ####[place] [address] .NEUABSon 05-13-2024 Neutrophil, Absolute 11.1 10 3/mcL High 2.3-8.1 [facility] Comment on above: Performed By: #### G FR, CBC, TROPHS, ADIFF, MG, PHOS, CAION, CMP, MYCO, ANEU ####[place] [address] BGon 05-13-2024 Base excess Calc (Bld) [Moles/Vol] 17.9 mmol/L Normal [facility] Comment on above: Performed By: #### B G ####[place] [address] CO2 [Moles/Vol] 44.7 mmol/L Critically abnormal 22.0-30.0 [facility] Comment on above: Performed By: #### B G ####[place] [phone] HCO3 (Bld) [Moles/Vol] 43.1 mmol/L High 21.0-29.0 [facility] Comment on above: Performed By: #### B G ####[place] [phone] Oxygen (Bld) [Partial pressure] 278.9 mm[Hg] High 74.0-108.0 [facility] Comment on above: Performed By: #### B G ####[place] [address] Oxygen saturation in Blood 99.8 % High 92.0-96.0 [facility] Comment on above: Performed By: #### B G ####[place] [address] pCO2 53.1 mmHg High 32.0-46.0 [facility] Comment on above: Performed By: #### B G ####[place] [phone] pH (Bld) 7.527 [pH] High 7.380-7.460 [facility] Comment on above: Performed By: #### B G ####[place] [address] BMPon 05-13-2024 CO2 [Moles/Vol] mmol/L Critically abnormal 22-32 [facility] Comment on above: Performed By: #### Rah Mott, GFR, BMP ####[place] [address] Electrolyte Balance Unable to Calculate Normal 4.0-15. 0 [facility] Comment on above: Result Comment: Unab le to calculate this test result accurately. Results used to calculate this test are outside the reportable range. Performed By: #### Rah Mott, GFR, BMP ####[place] [address] BUN/Creatinine Ratio 43.3 ratio High 10.0-22.0 [facility] Comment on above: Performed By: #### Rah Mott, GFR, BMP ####[place] [address] Calcium [Mass/Vol] 9.1 mg/dL Normal 8.7-10.4 [facility] Comment on above: Performed By: #### Rah Mott, GFR, BMP ####[place] [phone] Chloride [Moles/Vol] 100 mmol/L Normal 98-110 [facility] Comment on above: Performed By: #### Rah Mott, GFR, BMP ####[place] [address] Creatinine [Mass/Vol] 0.60 mg/dL Normal 0.50-1.20 [facility] Comment on above: Result Comment: Test ing performed on Backchat analyzer using enzymatic creatinine methodology. Performed By: #### Rah Mott, GFR, BMP ####[address] [address] Glucose [Mass/Vol] 84 mg/dL Normal 70-110 [facility] Comment on above: Performed By: #### M Tiera, GFR, BMP ####[address] [address] Potassium [Moles/Vol] 4.6 mmol/L Normal 3.5-5.0 [facility] Comment on above: Performed By: #### M Tiera, GFR, BMP ####[address] [address] Sodium [Moles/Vol] 144 mmol/L Normal 136-145 [facility] Comment on above: Performed By: #### M Tiera, GFR, BMP ####[address] [address] Urea nitrogen [Mass/Vol] 26.0 mg/dL High 8.0-22.0 [facility] Comment on above: Performed By: #### M Tiera, GFR, BMP ####[address] [address] CAIONon 05-13-2024 Calcium Ionized 1.02 mmol/L Low 1.12-1.32 [facility] Comment on above: Order Comment: Speci men volume must be 80% full05/13/2024 04:08:49 EST Performed By: #### G FR, CBC, TROPHS, ADIFF, MG, PHOS, CAION, CMP, MYCO, ANEU ####[address] [address] CBCon 05-13-2024 Erythrocyte distribution width (RBC) [Ratio] 14.4 % Normal 11.5-15.5 [facility] Comment on above: Performed By: #### G FR, CBC, TROPHS, ADIFF, MG, PHOS, CAION, CMP, MYCO, ANEU ####[address] [address] Hematocrit (Bld) [Volume fraction] 30.3 % Low 34.0-46.0 [facility] Comment on above: Performed By: #### G FR, CBC, TROPHS, ADIFF, MG, PHOS, CAION, CMP, MYCO, ANEU ####[place] [address] Hgb 10.0 G/dL Low 12.0-16.0 [facility] Comment on above: Performed By: #### G FR, CBC, TROPHS, ADIFF, MG, PHOS, CAION, CMP, MYCO, ANEU ####[place] [address] MCH (RBC) [Entitic mass] 32.6 pg Normal 27.0-33.0 [facility] Comment on above: Performed By: #### G FR, CBC, TROPHS, ADIFF, MG, PHOS, CAION, CMP, MYCO, ANEU ####[place] [address] MCHC 32.9 G/dL Normal 32.0-36.0 [facility] Comment on above: Performed By: #### G FR, CBC, TROPHS, ADIFF, MG, PHOS, CAION, CMP, MYCO, ANEU ####[place] [address] MCV (RBC) [Entitic vol] 99.2 fL High 80.0-99.0 [facility] Comment on above: Performed By: #### G FR, CBC, TROPHS, ADIFF, MG, PHOS, CAION, CMP, MYCO, ANEU ####[place] [address] Platelet 162 10 3/mcL Normal 150-450 [facility] Comment on above: Performed By: #### G FR, CBC, TROPHS, ADIFF, MG, PHOS, CAION, CMP, MYCO, ANEU ####[place] [address] Platelet mean volume (Bld) [Entitic vol] 9.6 fL Normal 6.6-10.5 [facility] Comment on above: Performed By: #### G FR, CBC, TROPHS, ADIFF, MG, PHOS, CAION, CMP, MYCO, ANEU ####[place] [address] RBC 3.06 10 6/mcL Low 4.10-5.30 [facility] Comment on above: Performed By: #### G FR, CBC, TROPHS, ADIFF, MG, PHOS, CAION, CMP, MYCO, ANEU ####[place] [address] WBC 14.0 10 3/mcL High 4.5-10.8 [facility] Comment on above: Performed By: #### G FR, CBC, TROPHS, ADIFF, MG, PHOS, CAION, CMP, MYCO, ANEU ####[place] [address] CMPon 05-13-2024 CO2 [Moles/Vol] mmol/L Critically abnormal [facility] Comment on above: Performed By: #### G FR, CBC, TROPHS, ADIFF, MG, PHOS, CAION, CMP, MYCO, ANEU ####[place] [address] Electrolyte Balance Unable to Calculate Normal 4.0-15. 0 [facility] Comment on above: Result Comment: Unab le to calculate this test result accurately. Results used to calculate this test are outside the reportable range. Performed By: #### G FR, CBC, TROPHS, ADIFF, MG, PHOS, CAION, CMP, MYCO, ANEU ####[place] [address] Albumin Level 2.7 G/dL Low 3.2-4.8 [facility] Comment on above: Performed By: #### G FR, CBC, TROPHS, ADIFF, MG, PHOS, CAION, CMP, MYCO, ANEU ####[place] [address] Albumin/Globulin [Mass ratio] 0.8 {ratio} Low 0.9-1.6 [facility] Comment on above: Performed By: #### G FR, CBC, TROPHS, ADIFF, MG, PHOS, CAION, CMP, MYCO, ANEU ####[id number] [place], [place] [address] ALP [Catalytic activity/Vol] 94 U/L Normal 38-126 [facility] Comment on above: Performed By: #### G FR, CBC, TROPHS, ADIFF, MG, PHOS, CAION, CMP, MYCO, ANEU ####[address] [address] ALT [Catalytic activity/Vol] 61 U/L High 10-49 [facility] Comment on above: Performed By: #### G FR, CBC, TROPHS, ADIFF, MG, PHOS, CAION, CMP, MYCO, ANEU ####[address] [address] AST [Catalytic activity/Vol] 59 U/L High 8-34 [facility] Comment on above: Performed By: #### G FR, CBC, TROPHS, ADIFF, MG, PHOS, CAION, CMP, MYCO, ANEU ####[place] [address] Bili Total 0.60 mg/dL Normal 0.20-1.20 [facility] Comment on above: Result Comment: Use of this assay is not recommended for patients undergoing treatment with eltrombopag due to the potential for falsely elevated results. Performed By: #### G FR, CBC, TROPHS, ADIFF, MG, PHOS, CAION, CMP, MYCO, ANEU ####[place] [address] BUN/Creatinine Ratio 54.9 ratio High 10.0-22.0 [facility] Comment on above: Performed By: #### G FR, CBC, TROPHS, ADIFF, MG, PHOS, CAION, CMP, MYCO, ANEU ####[place] [phone] Calcium [Mass/Vol] 8.9 mg/dL Normal 8.7-10.4 [facility] Comment on above: Performed By: #### G FR, CBC, TROPHS, ADIFF, MG, PHOS, CAION, CMP, MYCO, ANEU ####[place] [address] Chloride [Moles/Vol] 95 mmol/L Low 98-110 [facility] Comment on above: Performed By: #### G FR, CBC, TROPHS, ADIFF, MG, PHOS, CAION, CMP, MYCO, ANEU ####[address] [address] Creatinine [Mass/Vol] 0.71 mg/dL Normal 0.50-1.20 [facility] Comment on above: Result Comment: Test ing performed on [employer]chat analyzer using enzymatic creatinine methodology. Performed By: #### G FR, CBC, TROPHS, ADIFF, MG, PHOS, CAION, CMP, MYCO, ANEU ####[address] [address] Globulin 3.4 G/dL Normal 1.5-3.8 [facility] Comment on above: Performed By: #### G FR, CBC, TROPHS, ADIFF, MG, PHOS, CAION, CMP, MYCO, ANEU ####[place] [phone] Glucose [Mass/Vol] 125 mg/dL High 70-110 [facility] Comment on above: Performed By: #### G FR, CBC, TROPHS, ADIFF, MG, PHOS, CAION, CMP, MYCO, ANEU ####[address] [address] Potassium [Moles/Vol] 3.3 mmol/L Low 3.5-5.0 [facility] Comment on above: Performed By: #### G FR, CBC, TROPHS, ADIFF, MG, PHOS, CAION, CMP, MYCO, ANEU ####[address] [address] Sodium [Moles/Vol] 143 mmol/L Normal 136-145 [facility] Comment on above: Performed By: #### G FR, CBC, TROPHS, ADIFF, MG, PHOS, CAION, CMP, MYCO, ANEU ####[address] [address] Total Protein 6.1 G/dL Normal 5.7-8.2 [facility] Comment on above: Performed By: #### G FR, CBC, TROPHS, ADIFF, MG, PHOS, CAION, CMP, MYCO, ANEU ####[place] [id number] [address] [place] [address] Urea nitrogen [Mass/Vol] 39.0 mg/dL High 8.0-22.0 [facility] Comment on above: Performed By: #### G FR, CBC, TROPHS, ADIFF, MG, PHOS, CAION, CMP, MYCO, ANEU ####[place] [id number] [address] [place] [address] LABORATORYOrdered By: SYSTEM SYSTEM on 05-13-2024 Lactate [Moles/Vol] 1.0 mmol/L Normal 0.5 - 2. 2 mmol/L ADM SS Phosphate [Mass/Vol] 3.0 mg/dL Normal 2.4 - 5 .1 mg/dL ADM SS Comment on above: Interpretive Data: * *Note - New Reference Range in effect 19 Troponin I.cardiac DL <= 0.01 ng/mL [Mass/Vol] 38 ng/L High 0 - 34 ng/L ADM Comment on above: Interpretive Data: High Sensitive Troponin I Reference Ranges: Female: 0-34 ng/L Male: 0-54 ng/L Testing performed on [employer] analyzer using direct chemiluminescent technology. LABORATORYOrdered By: Colin hernandez on 05-13-2024 Blood Glucose Interventions Administered agent to increase blood sugar (05/13/24 8:00 AM) [facility] LABORATORYOrdered By: Nasra Manzano on 05-13-2024 [...] *ABN* (05/13/24 3:57 AM) Invalid Interpretation Code AH Man Viro/Sero SS Comment on above: Interpretive [...] Detected AH Auto Viro/Sero SS B. parapertussis [id number] DNA DOV+non-probe Ql (Nph) Not Detected *NA* [...] Code Not Detected AH Auto Viro/Sero SS Rhinovirus+Enterovirus RNA DOV+non-probe Ql (Nph) Not Detected *NA* [...] his assay has been validated in the [facility] for use with nasopharyngeal specimens in [facility]. If a non-validated specimen or test collection [...] (05/13/24 2:44 AM) Normal 5.0 - 8.0 Auto Urine SS UA Protein Trace mg/dL Normal Negative Auto Urine SS UA RBC 25-50 /HPF Invalid Interpretation Code 0-2 Auto Urine SS UA Spec Grav 1.015 (05/13/24 2:44 AM) Normal 1.006-1.029 Auto Urine SS UA Specimen Type Beckwith Catheter (05/13/24 2:44 AM) Normal Auto Urine SS UA Squam Epithelial 3-5 /HPF Normal 0-20 Au to Urine SS UA Urobilinogen 0.2 E.U./dL Normal 0.2-1.0 Auto Urine SS WBC LM.HPF (Urine sed) [#/Area] 0-2 /HPF Normal 0-5 Auto Urine SS LACon 05-13-2024 Lactic Acid Lvl 1.0 mmol/L Normal 0.5-2.2 [facility] Comment on above: Performed By: #### L AC ####[place] [address] Lactic Acid Lvl 1.0 mmol/L Normal 0.5-2.2 [facility] Comment on above: Performed By: #### L AC ####[place] [address] Lactic Acid Lvl 2.5 mmol/L High 0.5-2.2 [facility] Comment on above: Performed By: #### L AC ####[place] [address] LUAon 05-13-2024 SHIV Normal [facility] MGon 05-13-2024 Magnesium [Mass/Vol] 2.4 mg/dL Normal 1.6-2.4 [facility] Comment on above: Performed By: #### M G, GFR, BMP ####[place] [address] Magnesium [Mass/Vol] 2.4 mg/dL Normal 1.6-2.4 [facility] Comment on above: Performed By: #### G FR, CBC, TROPHS, ADIFF, MG, PHOS, CAION, CMP, MYCO, ANEU ####[place] [address] MRSAPCRon 05-13-2024 MRSA (PCR) Not detected Normal Not Detected [facility] Comment on above: Performed By: #### M RSAPCR ####[place] [address] MRSA PCR Int Normal [facility] Comment on above: Result Comment: [...] reproducible.See Below Performed By: #### M RSAPCR ####[place] [address] MYCOon 05-13-2024 Mycoplasma IgG Positive Normal [facility] Comment on above: Result Comment: INTE RPRETATION OF MYCOPLASMA IgG BY EIA: Negative: No detectable M. pneumoniae IgG antibody. Positive: Mycoplasma pneumoniae IgG antibody Detected. Equivocal: Equivocal for IgG antibodies to Mycoplasma pneumoniae. Suggest repeat testing in 10-14 days. Performed By: #### G FR, CBC, TROPHS, ADIFF, MG, PHOS, CAION, CMP, MYCO, ANEU ####[place] [address] Mycoplasma IgM Positive Abnormal [facility] Comment on above: Result Comment: INTE RPRETATION OF MYCOPLASMA IgM: Negative: IgM to M. pneumoniae Absent, or at levels below the assay limit of detection. Positive: IgM to M. pneumoniae Present. Invalid: Test results are invalid due to invalid internal control. Assay was performed in duplicate. Repeat testing is suggested if clinically indicated. Performed By: #### G FR, CBC, TROPHS, ADIFF, MG, PHOS, CAION, CMP, MYCO, ANEU ####[place] [address] No Panel Informationon 05-13 Legionella Urine Ag Presumptive negative for L. pneumophila serogroup 1 antigen in urine, suggesting no recent or current infection. Legionnaire's disease cannot be ruled out since other serogroups and species may also cause disease. [facility] Streptococcus Pneumoniae Urine Antig Presumptive negative for pneumococcal pneumonia, suggesting no current or recent pneumococcal infection. Infection due to Strep pneumoniae cannot be ruled out since the antigen present in the sample may be below the detection limit of the test. [facility] Comment on above: This test has [...] blood sugar, Notify physician (05/13/24 1:05 AM) [facility] PHOSon 05-13-2024 Phosphate [Mass/Vol] 3.0 mg/dL Normal 2.4-5.1 [facility] Comment on above: Result Comment: No te - New Reference Range in effect 19 Performed By: #### G FR, CBC, TROPHS, ADIFF, MG, PHOS, CAION, CMP, MYCO, ANEU ####[place] [address] RESCVIDon 05-13-2024 Adenovirus Not detected Normal Not Detected [facility] Comment on above: Performed By: #### R ESCVID ####[place] [address] Bordetella Parapertussis Not detected Normal Not Detected [facility] Comment on above: Performed By: #### R ESCVID ####[place] [address] Bordetella Pertussis Not detected Normal Not Detected [facility] Comment on above: Performed By: #### R ESCVID ####[place] [address] Chlamydophila pneumoniae Not detected Normal Not Detected [facility] Comment on above: Performed By: #### R ESCVID ####[place] [address] Coronavirus 229E (Not COVID-19) Not detected Normal Not Detected [facility] Comment on above: Performed By: #### R ESCVID ####[facility] [place] [id number] Coronavirus HKU1 (Not COVID-19) Not detected Normal Not Detected [facility] Comment on above: Performed By: #### R ESCVID ####[facility] [place] [id number] Coronavirus NL63 (Not COVID-19) Not detected Normal Not Detected [facility] Comment on above: Performed By: #### R ESCVID ####[facility] [place] [id number] Coronavirus OC43 (Not COVID-19) Not detected Normal Not Detected [facility] Comment on above: Performed By: #### R ESCVID ####[facility] [place] [id number] Human Metapneumovirus Not detected Normal Not Detected [facility] Comment on above: Performed By: #### R ESCVID ####[facility] [facility] [place] [id number] Influenza A Not detected Normal Not Detected [facility] Comment on above: Performed By: #### R ESCVID ####[facility] [place] [address] Influenza B Not detected Normal Not Detected [facility] Comment on above: Performed By: #### R ESCVID ####[facility] [place] [address] Mycoplasma pneumoniae Not detected Normal Not Detected [facility] Comment on above: Performed By: #### R ESCVID ####[facility] [place] [address] Parainfluenza 1 Not detected Normal Not Detected [facility] Comment on above: Performed By: #### R ESCVID ####[facility] [place] [address] Parainfluenza 2 Not detected Normal Not Detected [facility] Comment on above: Performed By: #### R ESCVID ####[facility] [place] [address] Parainfluenza 3 Not detected Normal Not Detected [facility] Comment on above: Performed By: #### R ESCVID ####[facility] [place] [address] Parainfluenza 4 Not detected Normal Not Detected [facility] Comment on above: Performed By: #### R ESCVID ####[facility] [place] [address] Respiratory Syncytial Virus Not detected Normal Not Detected [facility] Comment on above: Performed By: #### R ESCVID ####[place] [address] Rhinovirus/Enterovirus Not detected Normal Not Detected [facility] Comment on above: Performed By: #### R ESCVID ####[place] [address] SARS-CoV-2 (COVID-19) RNA DOV+probe Ql (Unsp spec) Not detected Normal Not Detected [facility] Comment on above: Result Comment: This assay has been validated in the [facility] for use with nasopharyngeal specimens in [facility]. If a non-validated specimen or test collection [...] health authorities. Performed By: #### R ESCVID ####[place] [address] SPAGon 05-13-2024 SPAG Normal [facility] TROPHSon 05-13-2024 High Sensitivity Troponin I 38 ng/L High 0-34 [facility] Comment on above: Result Comment: High Sensitive Troponin I Reference Ranges:Female: 0-34 ng/LMale: 0-54 ng/LTesting performed on UniSmart IM analyzer using direct chemiluminescent technology. Performed By: #### G FR, CBC, TROPHS, ADIFF, MG, PHOS, CAION, CMP, MYCO, ANEU ####[place] [address] UAon 05-13-2024 Color (U) Yellow Normal [facility] Comment on above: Performed By: #### U A, UAMIC ####[place] [address] Glucose (U) [Mass/Vol] Negative Normal Negative [facility] Comment on above: Performed By: #### U A, UAMIC ####[place] [address] Ketones Ql (U) Negative Normal Neg-Trace [facility] Comment on above: Performed By: #### U A, UAMIC ####[place] [address] UA Appear Clear Normal Clear [facility] Comment on above: Performed By: #### U A, UAMIC ####[place] [address] UA Blood Large Abnormal Neg-Trace [facility] Comment on above: Performed By: #### U A, UAMIC ####[place] [address] UA Leuk Est Small Abnormal Negative [facility] Comment on above: Performed By: #### U A, UAMIC ####[place] [address] UA Nitrite Negative Normal Negative [facility] Comment on above: Performed By: #### U A, UAMIC ####[place] [address] UA pH 5.5 Normal 5.0 - 8.0 [facility] Comment on above: Performed By: #### U A, UAMIC ####[place] [address] UA Protein Trace Normal Negative [facility] Comment on above: Performed By: #### U A, UAMIC ####[place] [address] UA Spec Grav 1.015 Normal 1.006-1.029 [facility] Comment on above: Performed By: #### U A, UAMIC ####[place] [address] UA Specimen Type Beckwith Catheter Normal [facility] Comment on above: Performed By: #### U A, UAMIC ####[place] [address] UA Urobilinogen 0.2 E.U./dL Normal 0.2-1.0 [facility] Comment on above: Performed By: #### U A, UAMIC ####[place] [address] Urobilinogen (U) [Mass/Vol] Negative Normal Neg-Trace [facility] Comment on above: Performed By: #### U A, UAMIC ####[place] [address] UAMICon 05-13-2024 UA Amorphus Trace Normal [facility] Comment on above: Performed By: #### U A, UAMIC ####[place] [address] UA Bacteria Trace Abnormal Negative [facility] Comment on above: Performed By: #### U A, UAMIC ####[place] [address] UA Coarse Granular Casts Rare Abnormal [facility] Comment on above: Performed By: #### U A, UAMIC ####[address] [address] UA RBC 25-50 Abnormal 0-2 [facility] Comment on above: Performed By: #### U A UAMIC ####[address] [address] UA Squam Epithelial 3-5 Normal 0-20 [facility] Comment on above: Performed By: #### U A, UAMIC ####[place] [address] UA WBC 0-2 Normal 0-5 [facility] Comment on above: Performed By: #### U A, UAMIC ####[place] [address] XR CHEST 1 VIEWon 05-13-2024 XR CHEST 1 VIEW Normal [facility] XR CHEST 1 VIEW Normal [facility] XR CHEST 1 VIEW Normal [facility] XR ENTERIC TUBE PLACEMENTon 05-13-2024 XR ENTERIC TUBE PLACEMENT Normal [facility] .Auto Diffon 05-12-2024 Basophil, Absolute 0.1 10 3/mcL Normal 0.0-0.2 [facility] Comment on above: Performed By: #### M DW, CBC, ANEU, GFR, PBNP, BMP, TROPHS, MG, ADIFF #### [address] [address] Basophils/100 WBC (Bld) 0.4 % Normal 0.0-2.5 [facility] Comment on above: Performed By: #### M DW, CBC, ANEU, GFR, PBNP, BMP, TROPHS, MG, ADIFF #### [address] [address] Eosinophil, Absolute 0.6 10 3/mcL Normal 0.0-0.7 [facility] Comment on above: Performed By: #### M DW, CBC, ANEU, GFR, PBNP, BMP, TROPHS, MG, ADIFF #### [address] [address] Eosinophils/100 WBC (Bld) 3.5 % Normal 0.0-7.0 [facility] Comment on above: Performed By: #### M DW, CBC, ANEU, GFR, PBNP, BMP, TROPHS, MG, ADIFF #### [address] [address] Lymphocyte, Absolute 1.4 10 3/mcL Normal 0.9-4.3 [facility] Comment on above: Performed By: #### M DW, CBC, ANEU, GFR, PBNP, BMP, TROPHS, MG, ADIFF #### [address] [address] Lymphocytes/100 WBC (Bld) 8.2 % Low 20.0-40.0 [facility] Comment on above: Performed By: #### M DW, CBC, ANEU, GFR, PBNP, BMP, TROPHS, MG, ADIFF #### [address] [address] Monocyte, Absolute 1.1 10 3/mcL Normal 0.1-1.4 [facility] Comment on above: Performed By: #### M DW, CBC, ANEU, GFR, PBNP, BMP, TROPHS, MG, ADIFF #### [address] [address] Monocytes/100 WBC (Bld) 6.6 % Normal 2.0-13.0 [facility] Comment on above: Performed By: #### M DW, CBC, ANEU, GFR, PBNP, BMP, TROPHS, MG, ADIFF #### [address] [address] Neutrophils/100 WBC (Bld) 81.3 % High 50.0-75.0 [facility] Comment on above: Performed By: #### M DW, CBC, ANEU, GFR, PBNP, BMP, TROPHS, MG, ADIFF #### [address] [address] .GFRon 05-12-2024 Estimated Glomerular Filtration Rate 58 ml/min/1.73sqm Normal [facility] Comment on above: Result Comment: Stages of [...] calculate the eGFR results. Performed By: #### M DW, CBC, ANEU, GFR, PBNP, BMP, TROPHS, MG, ADIFF #### [place] [address] .MDWon 05-12-2024 Monocyte Distribution Width 20.86 High 0.00-20.00 [facility] Comment on above: Result Comment: For adults in ED, MDW>20.0 may be associated with a higher risk of sepsis during the first 12hrs of hospital admission The predictive value of MDW for identifying sepsis in patients with hematological abnormalities has not been established Performed By: #### M DW, CBC, ANEU, GFR, PBNP, BMP, TROPHS, MG, ADIFF #### [place] [address] .Morphon 05-12-2024 Platelet Estimate Normal Normal [facility] Comment on above: Performed By: #### M DW, CBC, ANEU, GFR, PBNP, BMP, TROPHS, MG, ADIFF #### [place] [address] RBC morphology finding Nom (Bld) Normal Normal [facility] Comment on above: Performed By: #### M DW, CBC, ANEU, GFR, PBNP, BMP, TROPHS, MG, ADIFF #### [place] [address] .NEUABSon 05-12-2024 Neutrophil, Absolute 14.0 10 3/mcL High 2.3-8.1 A [facility] Comment on above: Performed By: #### M DW, CBC, ANEU, GFR, PBNP, BMP, TROPHS, MG, ADIFF #### [address] [address] CBCon 05-12-2024 Erythrocyte distribution width (RBC) [Ratio] 15.2 % Normal 11.5-15.5 [facility] Comment on above: Performed By: #### M DW, CBC, ANEU, GFR, PBNP, BMP, TROPHS, MG, ADIFF #### [place] [address] Hematocrit (Bld) [Volume fraction] 37.8 % Normal 34.0-46.0 [facility] Comment on above: Performed By: #### M DW, CBC, ANEU, GFR, PBNP, BMP, TROPHS, MG, ADIFF #### [place] [address] Hgb 11.9 G/dL Low 12.0-16.0 [facility] Comment on above: Performed By: #### M DW, CBC, ANEU, GFR, PBNP, BMP, TROPHS, MG, ADIFF #### [address] [address] MCH (RBC) [Entitic mass] 32.2 pg Normal 27.0-33.0 [facility] Comment on above: Performed By: #### M DW, CBC, ANEU, GFR, PBNP, BMP, TROPHS, MG, ADIFF #### [address] [address] MCHC 31.4 G/dL Low 32.0-36.0 [facility] Comment on above: Performed By: #### M DW, CBC, ANEU, GFR, PBNP, BMP, TROPHS, MG, ADIFF #### [place] [id number] MCV (RBC) [Entitic vol] 102.6 fL High 80.0-99.0 [facility] Comment on above: Performed By: #### M DW, CBC, ANEU, GFR, PBNP, BMP, TROPHS, MG, ADIFF #### [place] [address] Platelet 222 10 3/mcL Normal 150-450 [facility] Comment on above: Performed By: #### M DW, CBC, ANEU, GFR, PBNP, BMP, TROPHS, MG, ADIFF #### [address] [address] Platelet mean volume (Bld) [Entitic vol] 9.2 fL Normal 6.6-10.5 [facility] Comment on above: Performed By: #### M DW, CBC, ANEU, GFR, PBNP, BMP, TROPHS, MG, ADIFF #### [address] [address] RBC 3.69 10 6/mcL Low 4.10-5.30 [facility] Comment on above: Performed By: #### M DW, CBC, ANEU, GFR, PBNP, BMP, TROPHS, MG, ADIFF #### [address] [address] WBC 17.2 10 3/mcL High 4.5-10.8 [facility] Comment on above: Performed By: #### M DW, CBC, ANEU, GFR, PBNP, BMP, TROPHS, MG, ADIFF #### [address] [address] CMPon 05-12-2024 Albumin Level 3.2 G/dL Low 3.5-5.0 [facility] Comment on above: Performed By: #### M DW, CBC, ANEU, GFR, PBNP, BMP, TROPHS, MG, ADIFF #### [address] [address] Albumin/Globulin [Mass ratio] 0.6 {ratio} Low 1.1-2.5 [facility] Comment on above: Performed By: #### M DW, CBC, ANEU, GFR, PBNP, BMP, TROPHS, MG, ADIFF #### [address] [address] ALP [Catalytic activity/Vol] 142 U/L High 40-135 [facility] Comment on above: Performed By: #### M DW, CBC, ANEU, GFR, PBNP, BMP, TROPHS, MG, ADIFF #### [address] [address] ALT [Catalytic activity/Vol] 76 U/L High 14-59 [facility] Comment on above: Performed By: #### M DW, CBC, ANEU, GFR, PBNP, BMP, TROPHS, MG, ADIFF #### [address] [address] AST [Catalytic activity/Vol] 73 U/L High 10-40 [facility] Comment on above: Performed By: #### M DW, CBC, ANEU, GFR, PBNP, BMP, TROPHS, MG, ADIFF #### [address] [address] Bili Total 0.7 mg/dL Normal 0.2-1.0 [facility] Comment on above: Result Comment: Use of this assay is not recommended for patients undergoing treatment with eltrombopag due to the potential for falsely elevated results. Performed By: #### M DW, CBC, ANEU, GFR, PBNP, BMP, TROPHS, MG, ADIFF #### [address] [address] BUN/Creatinine Ratio 40 ratio High 7-27 [facility] Comment on above: Performed By: #### M DW, CBC, ANEU, GFR, PBNP, BMP, TROPHS, MG, ADIFF #### [address] [address] Calcium [Mass/Vol] 9.3 mg/dL Normal 8.4-10.2 [facility] Comment on above: Performed By: #### M DW, CBC, ANEU, GFR, PBNP, BMP, TROPHS, MG, ADIFF #### [address] [address] Chloride [Moles/Vol] 95 mmol/L Low 98-107 [facility] Comment on above: Performed By: #### M DW, CBC, ANEU, GFR, PBNP, BMP, TROPHS, MG, ADIFF #### [address] [address] CO2 [Moles/Vol] 43 mmol/L Critically abnormal 22-29 [facility] Comment on above: Performed By: #### M DW, CBC, ANEU, GFR, PBNP, BMP, TROPHS, MG, ADIFF #### [address] [address] Creatinine [Mass/Vol] 1.20 mg/dL High 0.55-1.02 [facility] Comment on above: Result Comment: Test ing performed on Relatient Dimension EXL analyzer using a modified kinetic Melanie technique. Performed By: #### M DW, CBC, ANEU, GFR, PBNP, BMP, TROPHS, MG, ADIFF #### [address] [address] Electrolyte Balance 3.0 mEq/L Low 4.0-15.0 [facility] Comment on above: Performed By: #### M DW, CBC, ANEU, GFR, PBNP, BMP, TROPHS, MG, ADIFF #### [address] [address] Globulin 5.4 G/dL High 1.5-3.8 [facility] Comment on above: Performed By: #### M DW, CBC, ANEU, GFR, PBNP, BMP, TROPHS, MG, ADIFF #### [address] [address] Glucose [Mass/Vol] 107 mg/dL High 70-105 [facility] Comment on above: Performed By: #### M DW, CBC, ANEU, GFR, PBNP, BMP, TROPHS, MG, ADIFF #### [address] [address] Potassium [Moles/Vol] 5.1 mmol/L Normal 3.5-5.1 [facility] Comment on above: Performed By: #### M DW, CBC, ANEU, GFR, PBNP, BMP, TROPHS, MG, ADIFF #### [address] [address] Sodium [Moles/Vol] 141 mmol/L Normal 136-145 [facility] Comment on above: Performed By: #### M DW, CBC, ANEU, GFR, PBNP, BMP, TROPHS, MG, ADIFF #### [address] [address] Total Protein 8.6 G/dL High 6.4-8.2 [facility] Comment on above: Performed By: #### M DW, CBC, ANEU, GFR, PBNP, BMP, TROPHS, MG, ADIFF #### [address] [address] Urea nitrogen [Mass/Vol] 48 mg/dL High 7-18 [facility] Comment on above: Performed By: #### M DW, CBC, ANEU, GFR, PBNP, BMP, TROPHS, MG, ADIFF #### [address] [address] CVFLURVon 05-12-2024 FLU A PCR Negative Normal Negative [facility] Comment on above: Performed By: #### M DW, CBC, ANEU, GFR, PBNP, BMP, TROPHS, MG, ADIFF #### [place] [address] FLU B PCR Negative Normal Negative [facility] Comment on above: Performed By: #### M DW, CBC, ANEU, GFR, PBNP, BMP, TROPHS, MG, ADIFF #### [place] [address] RSV PCR Negative Normal Negative [facility] Comment on above: Performed By: #### M DW, CBC, ANEU, GFR, PBNP, BMP, TROPHS, MG, ADIFF #### [place] [address] SARS-CoV-2 (COVID-19) RNA DOV+probe Ql (Unsp spec) Negative Normal Negative [facility] Comment on above: Result Comment: Resu lts [...] cause inaccurate positive results. Performed By: #### M DW, CBC, ANEU, GFR, PBNP, BMP, TROPHS, MG, ADIFF #### [address] [address] PBNPon 05-12-2024 Natriuretic peptide B (Bld) [Mass/Vol] 8761 pg/mL High 0-125 [facility] Comment on above: Result Comment: NT-p roBNP results of less than 300 pg/mL effectively rules out acute congestive heart failure with 99% negative predictive value. Performed By: #### M DW, CBC, ANEU, GFR, PBNP, BMP, TROPHS, MG, ADIFF #### [address] [address] [facility] 05-12-2024 High Sensitivity Troponin I 29 ng/L Normal 0-51 [facility] Comment on above: Result Comment: High Sensitive Troponin I Reference Ranges: Female: 0-51 ng/L Male: 0-76 ng/L Testing performed on MR Presta using a homogeneous sandwich chemiluminescent immunoassay based on Yummly technology. Performed By: #### M DW, CBC, ANEU, GFR, PBNP, BMP, TROPHS, MG, ADIFF #### [place] [id number] [place], [place] [address] XR CHEST 1 VIEWon 05-12-2024 XR CHEST [...] congestion with diffuse peribronchial thickening. Interpreted by: Moe Johnson MD Preliminary Report By: Moe Johnson MD Electronically signed By Moe Johnson MD Dictated Date: 05/12/2024 10:31:44 PM Prelim Date: 05/12/2024 10:33:35 PM Sign Date: 05/12/2024 10:33:35 PM [facility] ) SIA ABDUL ([id number]) 1980 F Date Time Provider Department 05/10/24 1:40 PM MIKA KAPLAN During your visit today, we recorded the following information about you: Mika Kaplan APRN.BULB INSPECTOR 05/10/2024 4:39 PM [facility] presents with: Recheck: ER follow up, cellulitis HPI Sia Abdul is a 43 year old female who presents today for recent Hospital stay for cellulitis and anxiety Was at [facility] on 04/28-05/02 for exacerbation of CHF and is following with Dr. Goodman in [place] [employer] for this who is her dental floss packer. Is on torsemide for this and another [...] with anxious feelings. Is having trouble sleeping. Mir Vracha bought her skilled nursing last year and made changes which have not made her very trusting of them. Patient very negative with description of her current caretakers of her skilled nursing. Feels they do not feel her well and swap out her food These reported changes have made for a poor diet she feels has impacted with her routine hospitalizations. Mother is aware of these concerns and state her transplant case manager is looking into this. Sleep: [...] obesity (HCC) Non-STEMI (non-ST elevated myocardial infarction) ([facility]) 02/24/2024 Other diseases of lung, not elsewhere [...] Take 1 tablet by mouth once daily. [id number]-Fish Oil 1,000 mg (120 mg-180 mg) cap [...] included)... Normal [facility] .Auto Diffon 05-08-2024 Basophil, Absolute 0.1 10 3/mcL Normal 0.0-0.2 [facility] Comment on above: Performed By: #### M DW, CBC, ANEU, GFR, PBNP, BMP, TROPHS, MG, ADIFF #### [address] [address] Basophils/100 WBC (Bld) 0.7 % Normal 0.0-2.5 [facility] Comment on above: Performed By: #### M DW, CBC, ANEU, GFR, PBNP, BMP, TROPHS, MG, ADIFF #### [address] [address] Eosinophil, Absolute 0.3 10 3/mcL Normal 0.0-0.7 [facility] Comment on above: Performed By: #### M DW, CBC, ANEU, GFR, PBNP, BMP, TROPHS, MG, ADIFF #### [address] [address] Eosinophils/100 WBC (Bld) 3.0 % Normal 0.0-7.0 [facility] Comment on above: Performed By: #### M DW, CBC, ANEU, GFR, PBNP, BMP, TROPHS, MG, ADIFF #### [address] [address] Lymphocyte, Absolute 1.3 10 3/mcL Normal 0.9-4.3 [facility] Comment on above: Performed By: #### M DW, CBC, ANEU, GFR, PBNP, BMP, TROPHS, MG, ADIFF #### [address] [address] Lymphocytes/100 WBC (Bld) 11.1 % Low 20.0-40.0 [facility] Comment on above: Performed By: #### M DW, CBC, ANEU, GFR, PBNP, BMP, TROPHS, MG, ADIFF #### [address] [address] Monocyte, Absolute 1.3 10 3/mcL Normal 0.1-1.4 [facility] Comment on above: Performed By: #### M DW, CBC, ANEU, GFR, PBNP, BMP, TROPHS, MG, ADIFF #### [address] [address] Monocytes/100 WBC (Bld) 11.2 % Normal 2.0-13.0 [facility] Comment on above: Performed By: #### M DW, CBC, ANEU, GFR, PBNP, BMP, TROPHS, MG, ADIFF #### [place] [id number] Neutrophils/100 WBC (Bld) 74.0 % Normal 50.0-75.0 [facility] Comment on above: Performed By: #### M DW, CBC, ANEU, GFR, PBNP, BMP, TROPHS, MG, ADIFF #### [place] [address] .MDWon 05-08-2024 Monocyte Distribution Width 18.10 Normal 0.00-20.00 [facility] Comment on above: Result Comment: For ED adult patients suspected of sepsis, MDW<=20.0 does not rule out sepsis or risk of sepsis Performed By: #### M DW, CBC, ANEU, GFR, PBNP, BMP, TROPHS, MG, ADIFF #### [place] [id number] .NEUABSon 05-08-2024 Neutrophil, Absolute 8.6 10 3/mcL High 2.3-8.1 [facility] Comment on above: Performed By: #### M DW, CBC, ANEU, GFR, PBNP, BMP, TROPHS, MG, ADIFF #### [place] [address] CBCon 05-08-2024 Erythrocyte distribution width (RBC) [Ratio] 15.1 % Normal 11.5-15.5 [facility] Comment on above: Performed By: #### M DW, CBC, ANEU, GFR, PBNP, BMP, TROPHS, MG, ADIFF #### [place] [address] Hematocrit (Bld) [Volume fraction] 38.2 % Normal 34.0-46.0 [facility] Comment on above: Performed By: #### M DW, CBC, ANEU, GFR, PBNP, BMP, TROPHS, MG, ADIFF #### [address] [place] [address] Hgb 12.3 G/dL Normal 12.0-16.0 [facility] Comment on above: Performed By: #### M DW, CBC, ANEU, GFR, PBNP, BMP, TROPHS, MG, ADIFF #### [address] [address] MCH (RBC) [Entitic mass] 32.2 pg Normal 27.0-33.0 [facility] Comment on above: Performed By: #### M DW, CBC, ANEU, GFR, PBNP, BMP, TROPHS, MG, ADIFF #### [address] [address] MCHC 32.1 G/dL Normal 32.0-36.0 [facility] Comment on above: Performed By: #### M DW, CBC, ANEU, GFR, PBNP, BMP, TROPHS, MG, ADIFF #### [address] [address] MCV (RBC) [Entitic vol] 100.2 fL High 80.0-99.0 [facility] Comment on above: Performed By: #### M DW, CBC, ANEU, GFR, PBNP, BMP, TROPHS, MG, ADIFF #### [address] [address] Platelet 200 10 3/mcL Normal 150-450 [facility] Comment on above: Performed By: #### M DW, CBC, ANEU, GFR, PBNP, BMP, TROPHS, MG, ADIFF #### [address] [address] Platelet mean volume (Bld) [Entitic vol] 8.9 fL Normal 6.6-10.5 [facility] Comment on above: Performed By: #### M DW, CBC, ANEU, GFR, PBNP, BMP, TROPHS, MG, ADIFF #### [address] [address] RBC 3.81 10 6/mcL Low 4.10-5.30 [facility] Comment on above: Performed By: #### M DW, CBC, ANEU, GFR, PBNP, BMP, TROPHS, MG, ADIFF #### [facility] [address] [place], [place] [address] WBC 11.6 10 3/mcL High 4.5-10.8 [facility] Comment on above: Performed By: #### M DW, CBC, ANEU, GFR, PBNP, BMP, TROPHS, MG, ADIFF #### [facility] [address] [place], [place] [address] LABORATORYOrdered By: SYSTEM SYSTEM on 05-08-2024 Basophils [...] Routine cultures are held for 5 days. [facility] ACTH, PLASMAon 05-06-2024 ACTH, PLASMA 19 pg/mL Normal 6-50 [facility] Comment on above: Result Comment: Reference range applies only to specimens collected between 7am-10am. Performed By: #### 1 0314, 4212, 899, 866 #### [facility] [address] [facility], [address] [place] [address] Crystal Lapper: Daniel Burt MD #### 211 #### [facility]/[place] [address] [address] [place] [address] Crystal Lapper: J Carlos Cedillo M.D.,PhD CORTISOL, A.M.on 05-06-2024 CORTISOL, A.M. 14.1 mcg/dL Normal [facility] Comment on above: Result Comment: Refe rence Range 8 a.m. (7-9 a.m.) Specimen: 4.0-22.0 Performed By: #### 1 0314, 4212, 899, 866 #### [facility] [address], [address] [place] [address] Crystal Lapper: Daniel Burt MD #### 211 #### [facility]/[address] [place], [place] Crystal Lapper: J Carlos Cedillo M.D.,PhD RENAL FUNCTION PANELon 05-06 Albumin [Mass/Vol] 4.2 g/dL Normal 3.6-5.1 [facility] Comment on above: Order Comment: FASTI NG:NO PATIENT NOT FASTING; ADVISED TO RETURN FOR COLLECTION. FASTING: NO Performed By: #### 1 0314, 421, 899, 866 #### [facility] [address], [address] [place] [address] Crystal Lapper: Daniel Burt MD #### 211 #### [facility]/[address] [place], [place] Crystal Lapper: J Carlos Cedillo M.D.,PhD BUN/CREATININE RATIO SEE NOTE: Normal 6-22 [facility] Comment on above: Order Comment: FASTI NG:NO PATIENT NOT FASTING; ADVISED TO RETURN FOR COLLECTION. FASTING: NO Result Comment: Not Reported: BUN and Creatinine are within reference range. Performed By: #### 1 0314, [phone] [phone] #### [facility] [address], [address] [place] [address] Crystal Lapper: Daniel Burt MD #### 211 #### [facility]/[place] [id number] [facility] [place], [place] Crystal Lapper: J Carlos Cedillo M.D.,PhD Calcium [Mass/Vol] 9.2 mg/dL Normal 8.6-10.2 [facility] Comment on above: Order Comment: FASTI NG:NO PATIENT NOT FASTING; ADVISED TO RETURN FOR COLLECTION. FASTING: NO Performed By: #### 1 0314, 421, 899, 866 #### [facility] [address], [address] [place] [address] Crystal Lapper: Daniel Burt MD #### 211 #### [facility]/[address] [place], [place] Crystal Lapper: J Carlos Cedillo M.D.,PhD Chloride [Moles/Vol] 93 mmol/L Low 98-110 [facility] Comment on above: Order Comment: FASTI NG:NO PATIENT NOT FASTING; ADVISED TO RETURN FOR COLLECTION. FASTING: NO Performed By: #### 1 0314, 4211, 899, 866 #### [facility] [address], [address] [place] [address] Crystal Lapper: Daniel Burt MD #### 211 #### [facility]/[address] [place], [place] Crystal Lapper: J Carlos Cedillo M.D.,PhD CO2 [Moles/Vol] 38 mmol/L High 20-32 [facility] Comment on above: Order Comment: FASTI NG:NO PATIENT NOT FASTING; ADVISED TO RETURN FOR COLLECTION. FASTING: NO Performed By: #### 1 0314, 4211, 89, 866 #### [facility] [address], [address] [place], [place] [id number] Crystal Lapper: Daniel Burt MD #### 211 #### [facility]/[address] [place], [place] Crystal Lapper: J Carlos Cedillo M.D.,PhD Creatinine [Mass/Vol] 0.60 mg/dL Normal 0.50-0.[address] [facility] [address] [facility] Comment on above: Order Comment: FASTI NG:NO PATIENT NOT FASTING; ADVISED TO RETURN FOR COLLECTION. FASTING: NO Performed By: #### 1 0314, 421, 899, 866 #### [facility] [address], [address] [place] [address] Crystal Lapper: Daniel Burt MD #### 211 #### [facility]/[address] [place], [place] Crystal Lapper: J Carlos Cedillo M.D.,PhD GFR/1.73 sq M.predicted among non-blacks MDRD (S/P/Bld) [Vol rate/Area] 116 mL/min/{1.73_m2} Normal > OR = 60 [facility] Comment on above: Order Comment: FASTI NG:NO PATIENT NOT FASTING; ADVISED TO RETURN FOR COLLECTION. FASTING: NO Performed By: #### 1 0314, 4212, 899, 866 #### [facility] [address], [address] [place] [address] Crystal Lapper: Daniel Burt MD #### 211 #### [facility]/[place] [id number] [facility] [place], [place] Crystal Lapper: J Carlos Cedillo M.D.,PhD Glucose [Mass/Vol] 71 mg/dL Normal 65-139 [facility] Comment on above: Order Comment: FASTI NG:NO PATIENT NOT FASTING; ADVISED TO RETURN FOR COLLECTION. FASTING: NO Result Comment: Non-fasting reference interval Performed By: #### 1 0314, 4212, 899, 866 #### [facility] [address], [address] [place], [place] [id number] Crystal Lapper: Daniel Burt MD #### 211 #### [facility]/[address] [place], [place] Crystal Lapper: J Carlos Cedillo M.D.,PhD Phosphate [Mass/Vol] 4.2 mg/dL Normal 2.5-4.5 [facility] t [facility] Comment on above: Order Comment: FASTI NG:NO PATIENT NOT FASTING; ADVISED TO RETURN FOR COLLECTION. FASTING: NO Performed By: #### 1 0314, 4212, 899, 866 #### [facility] [address], [address] [place] [address] Crystal Lapper: Daniel Burt MD #### 211 #### [facility] [place] Crystal Lapper: J Carlos Cedillo M.D.,PhD Potassium [Moles/Vol] 4.2 mmol/L Normal 3.5-5.3 [facility] Comment on above: Order Comment: FASTI NG:NO PATIENT NOT FASTING; ADVISED TO RETURN FOR COLLECTION. FASTING: NO Performed By: #### 1 0314, 4212, 899, 866 #### [facility] [address], [address] [place], [place] [address] Crystal Lapper: Daniel Burt MD #### 211 #### [facility] [place] Crystal Lapper: J Carlos Cedillo M.D.,PhD Sodium [Moles/Vol] 143 mmol/L Normal 135-146 [facility] Comment on above: Order Comment: FASTI NG:NO PATIENT NOT FASTING; ADVISED TO RETURN FOR COLLECTION. FASTING: NO Performed By: #### 1 0314, 421, 899, 866 #### [facility] [address], [address] [place], [place] [address] Crystal Lapper: Daniel Burt MD #### 211 #### [facility] [place], [place] Crystal Lapper: J Carlos Cedillo M.D.,PhD Urea nitrogen [Mass/Vol] 18 mg/dL Normal 7-25 [facility] Comment on above: Order Comment: FASTI NG:NO PATIENT NOT FASTING; ADVISED TO RETURN FOR COLLECTION. FASTING: NO Performed By: #### 1 0314, 4212, 899, 866 #### [facility] [address], [address] [place], [place] [id number] Crystal Lapper: Daniel Burt MD #### 211 #### [facility] [address] [place], [place] Crystal Lapper: J Carlos Cedillo M.D.,PhD T4, FREEon 05-06-2024 Free T4 [Mass/Vol] 1.5 ng/dL Normal 0.8-1.8 [facility] Comment on above: Performed By: #### 1 0314, 4212, 899, 866 #### [facility] [address] Crystal Lapper: Daniel Burt MD #### 211 #### [facility]/[place] [id number] [facility] [place], [place] Crystal Lapper: J Carlos Cedillo M.D.,PhD TSHon 05-06-2024 TSH Qn 4.14 m[IU]/L Normal [facility] Comment on above: Result Comment: Refe rence Range > or = 20 Years 0.40-4.50 Ranges First trimester 0.26-2.66 Second trimester 0.55-2.73 Third trimester 0.43-2.91 Performed By: #### 1 0314, 4212, 899, 866 #### [facility] [place] [address] Crystal Lapper: Daniel Burt MD #### 211 #### [facility]/[place] [id number] [facility] [place], [place] Crystal Lapper: J Carlos Cedillo M.D.,PhD [facility] SIA ABDUL ([id number]) 1980 F Date Time Provider Department 05/05/24 MARILEE THAKUR INTWS During your visit today, we recorded the following information about you: Candelaria Ball LPN 05/05/2024 3:31 PM Signed Leia from [facility] calling asking for a new verbal order for PT plan of care 2 visits weekly for 4 weeks, please. Please advise Mika Kaplan APRN.OBED 05/06/2024 8:06 AM Signed Agree with order for PT. Thank you Mika Kaplan APRN.BULB INSPECTOR María Avila MA 05/06/2024 8:18 AM Signed Leia notified. Allergies [...] 1 tablet by mouth once daily. - Uhctv-6-FFX-EPA-Fish Oil 1,000 mg (120 mg-180 mg) cap [...] included)... Normal [facility] No Panel Informationon 05-05 FASTING:NO PATIENT NOT FASTING; ADVISED TO RETURN FOR COLLECTION. FASTING: NO [facility] Renal function 2000 panelon 05-05-2024 Albumin [Mass/Vol] 4.2 g/dL 3.6 - 5.1 g/dL [facility] Calcium [Mass/Vol] 9.2 mg/dL 8.6 - 10. 2 mg/dL [facility] Chloride [Moles/Vol] 93 mmol/L Low 98 - 11 0 mmol/L [facility] CO2 [Moles/Vol] 38 mmol/L High 20 - 32 mmol/L [facility] Creatinine [Mass/Vol] 0.6 mg/dL 0.50 - 0.99 mg/dL [facility] GFR/1.73 sq M.predicted among non-blacks MDRD (S/P/Bld) [Vol rate/Area] 116 mL/min/{1.73_m2} > OR = 60 mL/min/1.73 m2 [facility] Glucose [Mass/Vol] 71 mg/dL 65 - 139 mg/dL [facility] Comment on above: Non-fasting reference interval Interpretation and review of laboratory results Abnormal [facility] Phosphate [Mass/Vol] 4.2 mg/dL 2.5 - 4 .5 mg/dL [facility] Potassium [Moles/Vol] 4.2 mmol/L 3.5 - 5.3 mmol/L [facility] Sodium [Moles/Vol] 143 mmol/L 135 - 146 mmol/L [facility] Urea nitrogen [Mass/Vol] 18 mg/dL 7 - 25 mg/dL [facility] Urea nitrogen/Creatinine [Mass ratio] SEE NOTE: [facility] Comment on above: Not Reported: BUN an d Creatinine are within reference range. Thyroid Stimulating Hormoneo n 05-05-2024 TSH Qn 4.14 m[IU]/L mIU/L [facility] Comment on above: Reference Range > or = 20 Years 0.40-4.50 Ranges First trimester 0.26-2.66 Second trimester 0.55-2.73 Third trimester 0.43-2.91 Thyroxine, Freeon 05-05-2024 Free T4 [Mass/Vol] 1.5 ng/dL 0.8 - 1.8 ng/dL [facility] POCT glycosylated hemoglobin (Hb A1C) manually resultedon 05-04-2024 HbA1c (Bld) [Mass fraction] 5.4 % 4.2 - 6.5 % [facility] Work Phone: [facility] Work Phone: Basic Metabolic Profile (BMP )on 05-03-2024 BUN Normal 7-18 [facility] Comment on above: Result Comment: Canc elled via OM: Order cancelled - Patient discharged Performed By: #### L 500.2500 ####[facility] [address] [place], [address] BUN/CRE Normal 10-20 [facility] Comment on above: Result Comment: Canc elled via OM: Order cancelled - Patient discharged Performed By: #### L 500.2500 ####[facility] [address] [place], [address] CA,Total Normal 8.5-10.1 [facility] Comment on above: Result Comment: Canc elled via OM: Order cancelled - Patient discharged Performed By: #### L 500.2500 ####[facility] [address] [place], [address] CL Normal 98-107 [facility] Comment on above: Result Comment: Canc elled via OM: Order cancelled - Patient discharged Performed By: #### L 500.2500 ####[facility] [address] [place], [address] CO2 Normal 21.0-32.0 [facility] Comment on above: Result Comment: Canc elled via OM: Order cancelled - Patient discharged Performed By: #### L 500.2500 ####[facility] [address] [place], [address] CREAT,SERUM Normal 0.55-1.02 [facility] Comment on above: Result Comment: Canc elled via OM: Order cancelled - Patient discharged Performed By: #### L 500.2500 ####[facility] [address] [place], [address] EST GFR Normal >60 [facility] Comment on above: Result Comment: Canc elled via OM: Order cancelled - Patient discharged Performed By: #### L 500.2500 ####[facility] [address] [place], [address] EST GFR - AA Normal >60 [facility] Comment on above: Result Comment: Canc elled via OM: Order cancelled - Patient discharged Performed By: #### L 500.2500 ####[facility] [address] [place], [address] GAP Normal 5-15 [facility] Comment on above: Result Comment: Canc elled via OM: Order cancelled - Patient discharged Performed By: #### L 500.2500 ####[facility] [address] [place], [address] GLU Normal 74-106 [facility] Comment on above: Result Comment: Canc elled via OM: Order cancelled - Patient discharged Performed By: #### L 500.2500 ####[facility] [address] [place], [address] Potassium Normal 3.5-5.1 [facility] Comment on above: Result Comment: Canc elled via OM: Order cancelled - Patient discharged Performed By: #### L 500.2500 ####[facility] [address] [place], [address] Basic Metabolic Profile (BMP) Normal 136-145 [facility] Comment on above: Result Comment: Canc elled via OM: Order cancelled - Patient discharged Performed By: #### L 500.2500 ####[facility] [address] [place], [address] Basic Metabolic Profile (BMP )on 05-02-2024 BUN/CRE 46.7 RATIO High 10-20 [facility] Comment on above: Performed By: #### L 500.2500 ####[facility] [address] [place], [address] CA,Total 8.4 mg/dL Low 8.5-10.1 [facility] Comment on above: Performed By: #### L 500.2500 ####[facility] [address] [place], [address] Chloride [Moles/Vol] 101 mmol/L Normal 98-107 [facility] Comment on above: Performed By: #### L 500.2500 ####[facility] [address] [place], [address] CO2 [Moles/Vol] 40.0 mmol/L High 21.0-32.0 [facility] Comment on above: Performed By: #### L 500.2500 ####[facility] [address] [place], [address] Creatinine [Mass/Vol] 0.36 mg/dL Low 0.55-1.02 [facility] Comment on above: Result Comment: The validity of the calculated GFR GFRAA in patients over70 years has not been determined. Clinical correlation isessential. Performed By: #### L 500.2500 ####[facility] [address] [place], [address] ECRCL 266.93 ml/min Normal [facility] Comment on above: Performed By: #### L 500.2500 ####[facility] [address] [place], [address] EST GFR - AA 251 mL/min Normal >60 [facility] Comment on above: Result Comment: Afri can Bahraini GFR Calc Performed By: #### L 500.2500 ####[facility] [address] [place], [address] GAP 5 Normal 5-15 [facility] Comment on above: Performed By: #### L 500.2500 ####[facility] [address] [place], [address] GFR/1.73 sq M.predicted among non-blacks MDRD (S/P/Bld) [Vol rate/Area] 208 mL/min/{1.73_m2} Normal >60 [facility] Comment on above: Result Comment: Non- GFR Calc Performed By: #### L 500.2500 ####[facility] [address] [place], [address] Glucose [Mass/Vol] 83 mg/dL Normal 74-106 [facility] Comment on above: Performed By: #### L 500.2500 ####[facility] [address] [place], [address] Potassium [Moles/Vol] 4.6 mmol/L Normal 3.5-5.1 [facility] Comment on above: Performed By: #### L 500.2500 ####[facility] [address] [place], [address] Sodium [Moles/Vol] 145 mmol/L Normal 136-145 [facility] Comment on above: Performed By: #### L 500.2500 ####[facility] [address] [facility] [address] Urea nitrogen [Mass/Vol] 17 mg/dL Normal 7-18 [facility] Comment on above: Performed By: #### L 500.2500 ####[facility] [address] [place], [address] Blood urea nitrogen (BUN)/cr eatinine ratioOrdered By: Marbin Lizama on 05-02-2024 Urea nitrogen/Creatinine [Mass ratio] 46.7 mg/mg High 10-20 [facility] Carbon dioxide measurementOr dered By: Marbin Lizama on 05-02-2024 CO2 [Moles/Vol] 40.0 mmol/L High 21.0-32.0 [facility] Chloride measurementOrdered By: Marbin Lizama on 05-02-2024 Chloride [Moles/Vol] 101 mmol/L 98-107 [facility] Discharge Instructionon 04-11 Discharge Instruction Normal [facility] Glomerular filtration rate ( GFR) estimationOrdered By: Marbin Lizama on 05-02-2024 GFR/1.73 sq M.predicted among non-blacks MDRD (S/P/Bld) [Vol rate/Area] 208 mL/min/{1.73_m2} >60 [facility] Comment on above: Non- GFR Calc Glucose measurementOrdered B y: Marbin Lizama on 05-02-2024 Glucose [Mass/Vol] 83 mg/dL 74-106 [facility] Potassium measurementOrdered By: Marbin Lizama on 05-02-2024 Potassium [Moles/Vol] 4.6 mmol/L 3.5-5.1 [facility] Serum anion gap measurementO rdered By: Marbin Lizama on 05-02-2024 Anion gap [Moles/Vol] 5 mmol/L 5-15 [facility] Serum or plasma calcium shasha urement (mass/volume)Ordered By: Marbin Lizama on 05-02-2024 Calcium [Mass/Vol] 8.4 mg/dL Low 8.5-10.1 [facility] Serum or plasma creatinine m easurement (mass/volume)Ordered By: Marbin Lizama on 05-02-2024 Creatinine [Mass/Vol] 0.36 mg/dL Low 0.55-1.02 [facility] Comment on above: The validity of the calculated GFR & GFRAA in patients over 70 years has not been determined. Clinical correlation is essential. Serum or plasma urea nitroge n measurement (mass/volume)Ordered By: Marbin Lizama on 05-02-2024 Urea nitrogen [Mass/Vol] 17 mg/dL 7-18 [facility] Sodium levelOrdered By: Mikhail Lizama on 05-02-2024 Sodium [Moles/Vol] 145 mmol/L 136-145 [facility] Basic Metabolic Profile (BMP )on 05-01-2024 BUN/CRE 40.4 RATIO High 10-20 [facility] Comment on above: Performed By: #### L 100.0500, L500.2500 ####[facility] [address] [place], [address] CA,Total 8.5 mg/dL Normal 8.5-10.1 [facility] Comment on above: Performed By: #### L 100.0500, L500.2500 ####[facility] [address] [place], [address] Chloride [Moles/Vol] 99 mmol/L Normal 98-107 [facility] Comment on above: Performed By: #### L 100.0500, L500.2500 ####[facility] [address] [place], [address] CO2 [Moles/Vol] 43.0 mmol/L High 21.0-32.0 [facility] Comment on above: Performed By: #### L 100.0500, L500.2500 ####[facility] [address] [place], [address] Creatinine [Mass/Vol] 0.45 mg/dL Low 0.55-1.02 [facility] Comment on above: Result Comment: The validity of the calculated GFR GFRAA in patients over70 years has not been determined. Clinical correlation isessential. Performed By: #### L 100.0500, L500.2500 ####[facility] [address] [place], [address] ECRCL 213.54 ml/min Normal [facility] Comment on above: Performed By: #### L 100.0500, L500.2500 ####[facility] [address] [place], [address] EST GFR - AA 199 mL/min Normal >60 [facility] Comment on above: Result Comment: Afri can Bahraini GFR Calc Performed By: #### L 100.0500, L500.2500 ####[facility] [address] [place], [address] GAP 0 Low 5-15 [facility] Comment on above: Performed By: #### L 100.0500, L500.2500 ####[facility] [address] [place], [address] GFR/1.73 sq M.predicted among non-blacks MDRD (S/P/Bld) [Vol rate/Area] 164 mL/min/{1.73_m2} Normal >60 [facility] Comment on above: Result Comment: Non- GFR Calc Performed By: #### L 100.0500, L500.2500 ####[facility] [address] [place], [address] Glucose [Mass/Vol] 82 mg/dL Normal 74-106 [facility] Comment on above: Performed By: #### L 100.0500, L500.2500 ####[facility] [address] [place], [address] Potassium [Moles/Vol] 3.9 mmol/L Normal 3.5-5.1 [facility] Comment on above: Performed By: #### L 100.0500, L500.2500 ####[facility] [address] [place], [address] Sodium [Moles/Vol] 142 mmol/L Normal 136-145 [facility] Comment on above: Performed By: #### L 100.0500, L500.2500 ####[facility] [address] [place], [address] Urea nitrogen [Mass/Vol] 18 mg/dL Normal 7-18 [facility] Comment on above: Performed By: #### L 100.0500, L500.2500 ####[facility] [address] [place], [address] CBC-Complete Blood Cnt No Di ffon 05-01-2024 Erythrocyte distribution width (RBC) [Ratio] 14.6 % Normal 11.6-14.6 [facility] Comment on above: Performed By: #### L 100.0500, L500.2500 ####[facility] [address] [place], [address] Hematocrit (Bld) [Volume fraction] 36.8 % Low 37-47 [facility] Comment on above: Performed By: #### L 100.0500, L500.2500 ####[facility] [address] [place], [address] Hemoglobin (Bld) [Mass/Vol] 10.7 g/dL Low 12.0-15.0 [facility] Comment on above: Performed By: #### L 100.0500, L500.2500 ####[facility] [address] [place], [address] MCH (RBC) [Entitic mass] 31.4 pg Normal 27.0-32.0 [facility] Comment on above: Performed By: #### L 100.0500, L500.2500 ####[facility] [address] [place], [address] MCHC (RBC) [Mass/Vol] 29.1 g/dL Low 32-36 [facility] Comment on above: Performed By: #### L 100.0500, L500.2500 ####[facility] [address] [place], [address] MCV (RBC) [Entitic vol] 107.9 fL High 81-99 [facility] Comment on above: Performed By: #### L 100.0500, L500.2500 ####[facility] [address] [place], [address] Platelet mean volume (Bld) [Entitic vol] 12.0 fL Normal 6.2-12.0 [facility] Comment on above: Performed By: #### L 100.0500, L500.2500 ####[facility] [address] [place], [address] Platelets (Bld) [#/Vol] 145 10*3/uL Low 150-450 [facility] Comment on above: Performed By: #### L 100.0500, L500.2500 ####[facility] [address] [place], [address] RBC (Bld) [#/Vol] 3.41 10*6/uL Low 4.2-5.4 [facility] Comment on above: Performed By: #### L 100.0500, L500.2500 ####[facility] [address] [place], [address] RDW SD 57.2 fl High 35.1-43.9 [facility] Comment on above: Performed By: #### L 100.0500, L500.2500 ####[facility] [address] [place], [address] WBC (Bld) [#/Vol] 11.7 10*3/uL High 4.4-11.0 [facility] Comment on above: Performed By: #### L 100.0500, L500.2500 ####[facility] [address] [place], [address] Erythrocyte distribution wid th ratioOrdered By: Marbin Lizama on 05-01-2024 Erythrocyte distribution width (RBC) [Ratio] 14.6 % 11.6-14.6 [facility] Erythrocyte distribution wid th standard deviationOrdered By: Marbin Lizama on 05-01-2024 Erythrocyte distribution width (RBC) [Ratio] 57.2 fl High 35.1-43.9 [facility] Hematocrit Auto (Bld) [Volum e fraction]Ordered By: Marbin Lizama on 05-01-2024 Hematocrit (Bld) [Volume fraction] 36.8 % Low 37-47 [facility] Hemoglobin measurementOrdere d By: Marbin Lizama on 05-01-2024 Hemoglobin (Bld) [Mass/Vol] 10.7 g/dL Low 12.0-15.0 [facility] MCV (mean corpuscular volume ) determinationOrdered By: Marbin Lizama on 05-01-2024 MCV (RBC) [Entitic vol] 107.9 fL High 81-99 [facility] Mean corpuscular hemoglobin (MCH) determinationOrdered By: Marbin Lizama on 05-01-2024 MCH (RBC) [Entitic mass] 31.4 pg 27.0-32.0 [facility] Mean corpuscular hemoglobin concentration (MCHC) determinationOrdered By: Marbin Lizama on 05-01-2024 MCHC (RBC) [Mass/Vol] 29.1 g/dL Low 32-36 [facility] Mean platelet volume determi nationOrdered By: Marbin Lizama on 05-01-2024 Platelet mean volume (Bld) [Entitic vol] 12.0 fL 6.2-12.0 [facility] Platelet countOrdered By: Nirmal Lizama on 05-01-2024 Platelets (Bld) [#/Vol] 145 10*3/uL Low 150-450 [facility] RBC Auto (Bld) [#/Vol]Ordere d By: Marbin Lizama on 05-01-2024 RBC (Bld) [#/Vol] 3.41 10*6/uL Low 4.2-5.4 [facility] White blood cell (WBC) count Ordered By: Marbin Lizama on 05-01-2024 WBC (Bld) [#/Vol] 11.7 10*3/uL High 4.4-11.0 [facility] Basic Metabolic Profile (BMP )on 04-30-2024 BUN/CRE 38.7 RATIO High 10-20 [facility] Comment on above: Performed By: #### L 500.2500 ####[facility] [address] [place], [address] CA,Total 8.5 mg/dL Normal 8.5-10.1 [facility] Comment on above: Performed By: #### L 500.2500 ####[facility] [address] [place], [address] Chloride [Moles/Vol] 100 mmol/L Normal 98-107 [facility] Comment on above: Performed By: #### L 500.2500 ####[facility] [address] [place], [address] CO2 [Moles/Vol] 41.0 mmol/L High 21.0-32.0 [facility] Comment on above: Performed By: #### L 500.2500 ####[facility] [address] [place], [address] Creatinine [Mass/Vol] 0.49 mg/dL Low 0.55-1.02 [facility] Comment on above: Result Comment: The validity of the calculated GFR GFRAA in patients over70 years has not been determined. Clinical correlation isessential. Performed By: #### L 500.2500 ####[facility] [address] [place], [address] ECRCL 196.76 ml/min Normal [facility] Comment on above: Performed By: #### L 500.2500 ####[facility] [address] [place], [address] EST GFR - AA 178 mL/min Normal >60 [facility] Comment on above: Result Comment: Afri can Bahraini GFR Calc Performed By: #### L 500.2500 ####[facility] [address] [place], [address] GAP 3 Low 5-15 [facility] Comment on above: Performed By: #### L 500.2500 ####[facility] [address] [place], [address] GFR/1.73 sq M.predicted among non-blacks MDRD (S/P/Bld) [Vol rate/Area] 147 mL/min/{1.73_m2} Normal >60 [facility] Comment on above: Result Comment: Non- GFR Calc Performed By: #### L 500.2500 ####[facility] [address] [place], [address] Glucose [Mass/Vol] 96 mg/dL Normal 74-106 [facility] Comment on above: Performed By: #### L 500.2500 ####[facility] [address] [place], [address] Potassium [Moles/Vol] 4.0 mmol/L Normal 3.5-5.1 [facility] Comment on above: Performed By: #### L 500.2500 ####[facility] [address] [place], [address] Sodium [Moles/Vol] 144 mmol/L Normal 136-145 [facility] Comment on above: Performed By: #### L 500.2500 ####[facility] [address] [place], [address] Urea nitrogen [Mass/Vol] 19 mg/dL High 7-18 [facility] Comment on above: Performed By: #### L 500.2500 ####[facility] [address] [place], [address] High density lipoprotein (HD L) measurementOrdered By: Cinthia Torres on 04-30-2024 Cholesterol in HDL [Mass/Vol] 49 mg/dL >40 [facility] Comment on above: The drugs N-Acetylcy steine and Metamizole may falsely depress this assay. Reference Range HDL <40 mg/dL Low HDL Cholesterol HDL >or= 60 mg/dL High HDL Cholesterol Lipid Profileon 04-30-2024 Cholesterol [Mass/Vol] 137 mg/dL Normal 200 [facility] Comment on above: Result Comment: <200 mg/dL Desirable 200-240 mg/dL Borderline >240 mg/dL High Risk Performed By: #### L 500.4100 ####[facility] [address] [place], [address] Cholesterol in HDL [Mass/Vol] 49 mg/dL Normal [facility] Comment on above: Result Comment: The drugs N-Acetylcysteine and Metamizole may falselydepress this assay. Reference Range HDL <40 mg/dL Low HDL Cholesterol HDL >or= 60 mg/dL High HDL Cholesterol Performed By: #### L 500.4100 ####[facility] [address] [place], [address] Cholesterol in LDL [Mass/Vol] 76 mg/dL Normal 0-130 [facility] Comment on above: Performed By: #### L 500.4100 ####[facility] [address] [place], [address] Cholesterol in VLDL [Mass/Vol] 12 mg/dL Normal 5-40 [facility] Comment on above: Performed By: #### L 500.4100 ####[facility] [address] [place], [place], [address] Triglyceride [Mass/Vol] 62 mg/dL Normal [facility] Comment on above: Result Comment: The drugs N-Acetylcysteine and Metamizole may falselydepress this assay.Serum Triglycerides Reference Interval Normal <150 mg/dL Borderline high 150 - 199 mg/dL High 200 - 499 mg/dL Very High > or = 500 mg/dL Performed By: #### L 500.4100 ####[facility] [address] [facility] [address] [place], [place], [address] Low density lipoprotein (LDL ) cholesterol measurementOrdered By: Cinthia Torres on 04-30-2024 Cholesterol in LDL [Mass/Vol] 76 mg/dL 0-130 [facility] Serum or plasma cholesterol measurement (mass/volume)Ordered By: Cinthia Torres on 04-30-2024 Cholesterol [Mass/Vol] 137 mg/dL <200 [facility] Comment on above: <200 mg/dL Desirable 200-240 mg/dL Borderline >240 mg/dL High Risk Triglycerides measurementOrd ered By: Cinthia Torres on 04-30-2024 Triglyceride [Mass/Vol] 62 mg/dL <199 [facility] Comment on above: The drugs N-Acetylcy steine and Metamizole may falsely depress this assay.Serum Triglycerides Reference Interval Normal <150 mg/dL Borderline high 150 - 199 mg/dL High 200 - 499 mg/dL Very High > or = 500 mg/dL Very low density lipoprotein (VLDL) cholesterol measurementOrdered By: Cinthia Torres on 04-30-2024 Very low density lipoprotein (VLDL) cholesterol measurement 12 mg/dL 5-40 [facility] Absolute lymphocyte countOrd ered By: Cinthia Torres on 04-29-2024 Lymphocytes Auto (Unsp spec) [#/Vol] 2.29 10*3/uL 0.83-4.51 [facility] Absolute neutrophil countOrd ered By: Cinthia Torres on 04-29-2024 Neutrophils (Bld) [#/Vol] 8.2 10*3/uL High 2.0-7.7 [facility] Albumin to globulin ratioOrd ered By: Cinthia Torres on 04-29-2024 Albumin/Globulin [Mass ratio] 0.8 {ratio} Low 0.9-2.4 [facility] Automated lymphocyte count a s percentage of total leukocytesOrdered By: Cinthia Torres on 04-29-2024 Lymphocytes/100 WBC Auto (Unsp spec) 18.9 % Low 19-41 [facility] BNP,B-Type NATRIURETIC PEPTI Christa 04-29-2024 Natriuretic peptide B (Bld) [Mass/Vol] 277.4 pg/mL High 0-100 [facility] Comment on above: Performed By: #### L 503.6620 ####[facility] [address] [place], [address] Basophil percentageOrdered B y: Cinthia Torres on 04-29-2024 Basophils/100 WBC (Bld) 0.6 % Normal 0-1 [facility] Comment on above: Performed By: #### L 100.0100, L501.9520, L500.4050 ####[facility] [address] [place], [address] Bilirubin, totalOrdered By: Cinthia Torres on 04-29-2024 Bilirubin [Mass/Vol] 0.40 mg/dL 0.20-1.00 [facility] Comment on above: For patients on eltr ombopag therapy, use of Dimension [place] TBIL is not recommended. CBC W/Diff, Automatedon 04-11 Absolute Lymph 2.29 X10 3/uL Normal 0.83-4.51 [facility] Comment on above: Performed By: #### L 100.0100, L501.9520, L500.4050 ####[facility] [address] [place], [address] Absolute Neut 8.2 X10 3/uL High 2.0-7.7 [facility] Comment on above: Performed By: #### L 100.0100, L501.9520, L500.4050 ####[facility] [address] [place], [address] Erythrocyte distribution width (RBC) [Ratio] 14.8 % High 11.6-14.6 [facility] Comment on above: Performed By: #### L 100.0100, L501.9520, L500.4050 ####[facility] [address] [place], [address] Hematocrit (Bld) [Volume fraction] 34.6 % Low 37-47 [facility] Comment on above: Performed By: #### L 100.0100, L501.9520, L500.4050 ####[facility] [address] [place], [address] Hemoglobin (Bld) [Mass/Vol] 10.5 g/dL Low 12.0-15.0 [facility] Comment on above: Performed By: #### L 100.0100, L501.9520, L500.4050 ####[facility] [address] [place], [address] IG% 0.500 Normal 0.0-0.9 [facility] Comment on above: Result Comment: IG% - Immature Granulocytes (promyelocytes, myelocytes andmetamyelocytes) > 1% indicates that a LEFT SHIFT is Present. Performed By: #### L 100.0100, L501.9520, L500.4050 ####[facility] [address] [place], [address] Lymphocytes/100 WBC (Bld) 18.9 % Low 19-41 [facility] Comment on above: Performed By: #### L 100.0100, L501.9520, L500.4050 ####[facility] [address] [place], [address] MCH (RBC) [Entitic mass] 31.5 pg Normal 27.0-32.0 [facility] Comment on above: Performed By: #### L 100.0100, L501.9520, L500.4050 ####[facility] [address] [place], [address] MCHC (RBC) [Mass/Vol] 30.3 g/dL Low 32-36 [facility] Comment on above: Performed By: #### L 100.0100, L501.9520, L500.4050 ####[facility] [address] [place], [address] MCV (RBC) [Entitic vol] 103.9 fL High 81-99 [facility] Comment on above: Performed By: #### L 100.0100, L501.9520, L500.4050 ####[facility] [address] [place], [address] Nucleated RBC (Bld) [#/Vol] 0.2 10*3/uL Normal 0-5 [facility] Comment on above: Performed By: #### L 100.0100, L501.9520, L500.4050 ####[facility] [address] [place], [address] Platelet mean volume (Bld) [Entitic vol] 11.0 fL Normal 6.2-12.0 [facility] Comment on above: Performed By: #### L 100.0100, L501.9520, L500.4050 ####[facility] [address] [place], [address] Platelets (Bld) [#/Vol] 165 10*3/uL Normal 150-450 [facility] Comment on above: Performed By: #### L 100.0100, L501.9520, L500.4050 ####[facility] [address] [place], [address] RBC (Bld) [#/Vol] 3.33 10*6/uL Low 4.2-5.4 [facility] Comment on above: Performed By: #### L 100.0100, L501.9520, L500.4050 ####[facility] [address] [place], [address] RDW SD 55.6 fl High 35.1-43.9 [facility] Comment on above: Performed By: #### L 100.0100, L501.9520, L500.4050 ####[facility] [address] [place], [address] WBC (Bld) [#/Vol] 12.1 10*3/uL High 4.4-11.0 [facility] Comment on above: Performed By: #### L 100.0100, L501.9520, L500.4050 ####[facility] [address] [place], [address] CNPNon 04-29-2024 [facility] Telephone (INTMWS) SIA ABDUL ([id number]) 1980 F Date Time Provider Department 04/29/24 MARILEE THAKUR INTKAYE During your visit today, we recorded the following information about you: Pepper Walsh RN 04/29/2024 12:57 PM Signed Clarence with [facility] ([facility]) calling to update provider that patient was seen by one of their nurses yesterday, pt was not acting right, squad was called, squad arrived and pt declined the squad. Pt then went to stay at her mom's. N nurse contacted cardiology and cardiology advised pt to go to ER, and pt was agreeable to go. Clarence reports today, per patient 's mom, patient has been admitted to [facility]. RODRÍGUEZ Blake Chitra, MD 04/29/2024 4:30 PM [...] 1 tablet by mouth once daily. - Frqbs-5-KCX-EPA-Fish Oil 1,000 mg (120 mg-180 mg) cap [...] BMI 50.0-5 (more content not included)... Normal [facility] Metabolic Prof ilon 04-29-2024 Albumin [Mass/Vol] 2.7 g/dL Low 3.2-5.0 [facility] Comment on above: Performed By: #### L 100.0100, L501.9520, L500.4050 ####[facility] [address] [place], [address] Albumin/Globulin [Mass ratio] 0.8 {ratio} Low 0.9-2.4 [facility] Comment on above: Performed By: #### L 100.0100, L501.9520, L500.4050 ####[facility] [address] [place], [address] ALK P 88 U/L Normal 45-117 [facility] Comment on above: Performed By: #### L 100.0100, L501.9520, L500.4050 ####[facility] [address] [place], [address] ALT [Catalytic activity/Vol] 24 U/L Normal 13-56 [facility] Comment on above: Performed By: #### L 100.0100, L501.9520, L500.4050 ####[facility] [address] [place], [address] AST [Catalytic activity/Vol] 17 U/L Normal 15-37 [facility] Comment on above: Performed By: #### L 100.0100, L501.9520, L500.4050 ####[facility] [address] [place], [address] Bilirubin [Mass/Vol] 0.40 mg/dL Normal 0.20-1.00 [facility] Comment on above: Result Comment: For patients on eltrombopag therapy, use of Dimension [place] TBIL is not recommended. Performed By: #### L 100.0100, L501.9520, L500.4050 ####[facility] [address] [place], [address] BUN/CRE 49.4 RATIO High 10-20 [facility] Comment on above: Performed By: #### L 100.0100, L501.9520, L500.4050 ####[facility] [address] [place], [address] CA,Total 8.5 mg/dL Normal 8.5-10.1 [facility] Comment on above: Performed By: #### L 100.0100, L501.9520, L500.4050 ####[facility] [address] [place], [address] Chloride [Moles/Vol] 96 mmol/L Low 98-107 [facility] Comment on above: Performed By: #### L 100.0100, L501.9520, L500.4050 ####[facility] [address] [place], [address] CO2 [Moles/Vol] 41.0 mmol/L High 21.0-32.0 [facility] Comment on above: Performed By: #### L 100.0100, L501.9520, L500.4050 ####[facility] [address] [place], [address] Creatinine [Mass/Vol] 0.53 mg/dL Low 0.55-1.02 [facility] Comment on above: Result Comment: The validity of the calculated GFR GFRAA in patients over70 years has not been determined. Clinical correlation isessential. Performed By: #### L 100.0100, L501.9520, L500.4050 ####[facility] [address] [place], [address] ECRCL 183.25 ml/min Normal [facility] Comment on above: Performed By: #### L 100.0100, L501.9520, L500.4050 ####[facility] [address] [place], [address] EST GFR - AA 164 mL/min Normal >60 [facility] Comment on above: Result Comment: Afri can Bahraini GFR Calc Performed By: #### L 100.0100, L501.9520, L500.4050 ####[facility] [address] [place], [address] GAP 4 Low 5-15 [facility] Comment on above: Performed By: #### L 100.0100, L501.9520, L500.4050 ####[facility] [address] [place], [address] GFR/1.73 sq M.predicted among non-blacks MDRD (S/P/Bld) [Vol rate/Area] 136 mL/min/{1.73_m2} Normal >60 [facility] Comment on above: Result Comment: Non- GFR Calc Performed By: #### L 100.0100, L501.9520, L500.4050 ####[facility] [address] [place], [address] Globulin (S) [Mass/Vol] 3.5 g/dL Normal 2.2-4.2 [facility] Comment on above: Performed By: #### L 100.0100, L501.9520, L500.4050 ####[facility] [address] [place], [address] Glucose [Mass/Vol] 94 mg/dL Normal 74-106 [facility] Comment on above: Performed By: #### L 100.0100, L501.9520, L500.4050 ####[facility] [address] [place], [address] Potassium [Moles/Vol] 3.4 mmol/L Low 3.5-5.1 [facility] Comment on above: Performed By: #### L 100.0100, L501.9520, L500.4050 ####[facility] [address] [place], [address] Sodium [Moles/Vol] 141 mmol/L Normal 136-145 [facility] Comment on above: Performed By: #### L 100.0100, L501.9520, L500.4050 ####[facility] [address] [place], [address] T PROT 6.2 g/dL Low 6.4-8.2 [facility] Comment on above: Performed By: #### L 100.0100, L501.9520, L500.4050 ####[facility] [address] [place], [address] Urea nitrogen [Mass/Vol] 26 mg/dL High 7-18 [facility] Comment on above: Performed By: #### L 100.0100, L501.9520, L500.4050 ####[facility] [address] [place], [address] Eosinophil percentageOrdered By: Cinthia Torres on 04-29-2024 Eosinophils/100 WBC (Bld) 3.6 % Normal 0-5 [facility] Comment on above: Performed By: #### L 100.0100, L501.9520, L500.4050 ####[facility] [address] [place], [place], [phone] Immature granulocytes/100 WB C Auto (Bld)Ordered By: Cinthia Torres on 04-29-2024 Immature granulocytes/100 WBC (Bld) 0.500 % 0.0-0.9 [facility] Comment on above: IG% - Immature Granu locytes (promyelocytes, myelocytes and metamyelocytes) > 1% indicates that a LEFT SHIFT is Present. L501.4020on 04-29-2024 TROPONIN-I HS 12 pg/mL Normal 3.0-54.0 [facility] Comment on above: Order Comment: 'TROP ' Serial specimen #1, #2 or #3: 3 Result Comment: Plea se Note: New Test Units and Gender Specific Reference Ranges. For more information see Policy Stat Procedure [place] High Sensitivity Troponin (TNIH) and attachments. Performed By: #### L 501.4020 ####[facility] [address] [place], [place], [id number](444) TROPONIN-I HS 14 pg/mL Normal 3.0-54.0 [facility] Comment on above: Order Comment: 'TROP ' Serial specimen #1, #2 or #3: 2 Result Comment: Plea se Note: New Test Units and Gender Specific Reference Ranges. For more information see Policy Stat Procedure [place] High Sensitivity Troponin (TNIH) and attachments. Performed By: #### L 501.4020 ####[facility] [address] [place], [place], [id number](779) TROPONIN-I HS 14 pg/mL Normal 3.0-54.0 [facility] Comment on above: Order Comment: 'TROP ' Serial specimen #1, #2 or #3: 1 Result Comment: Plea se Note: New Test Units and Gender Specific Reference Ranges. For more information see Policy Stat Procedure [place] High Sensitivity Troponin (TNIH) and attachments. Performed By: #### L 501.4020 ####[facility] [address] [place], [address] Laboratory - Chemistry and C hemistry - challengeOrdered By: Cinthia Torres on 04-29-2024 AST [Catalytic activity/Vol] 17 U/L 15-37 [facility] Magnesiumon 04-29-2024 Magnesium [Mass/Vol] 2.3 mg/dL Normal 1.6-2.6 [facility] Comment on above: Order Comment: Comme nts: may add to ED labs Performed By: #### L 501.5200 ####[facility] [address] [place], [address] Monocyte percentageOrdered B y: Cinthia White on 04-29-2024 Monocytes/100 WBC (Bld) 8.7 % Normal 0-10 [facility] Comment on above: Performed By: #### L 100.0100, L501.9520, L500.4050 ####[facility] [address] [place], [address] Neutrophil percentageOrdered By: on 04-29-2024 Neutrophils/100 WBC (Bld) 67.7 % Normal 47-70 [facility] Comment on above: Performed By: #### L 100.0100, L501.9520, L500.4050 ####[facility] [address] [place], [address] Nucleated red blood cell per centageOrdered By: on 04-29-2024 Nucleated RBC/100 WBC (Bld) [Ratio] 0.2 % 0-5 [facility] Serum globulin measurementOr dered By: Cinthia White on 04-29-2024 Globulin (S) [Mass/Vol] 3.5 g/dL 2.2-4.2 [facility] Serum or plasma alanine walden otransferase (ALT) measurementOrdered By: on 04-29-2024 ALT [Catalytic activity/Vol] 24 U/L 13-56 [facility] Serum or plasma albumin shasha urement (mass/volume)Ordered By: on 04-29-2024 Albumin [Mass/Vol] 2.7 g/dL Low 3.2-5.0 [facility] Serum or plasma alkaline brennen sphatase measurementOrdered By: on 04-29-2024 ALP [Catalytic activity/Vol] 88 U/L 45-117 [facility] Serum or plasma thyroid stim ulating hormone (TSH) measurement (units/volume)Ordered By: Cinthia Torres on 04-29-2024 TSH Qn 3.530 uIU/mL 0.358-3.740 [facility] Thyroid Stim Hormone (TSH)on 04-29-2024 TSH 3.530 uIU/mL Normal 0.358-3.740 [facility] Comment on above: Performed By: #### L 100.0100, L501.9520, L500.4050 ####[facility] [address] [place], [place], [id number] Total proteinOrdered By: Alex Torres on 04-29-2024 Protein [Mass/Vol] 6.2 g/dL Low 6.4-8.2 [facility] Troponin IOrdered By: Cinthia Torres on 04-29-2024 Troponin I 12 pg/mL 3.0-54.0 [facility] Comment on above: Please Note: New Shasha t Units and Gender Specific Reference Ranges. For more information see Policy Stat Procedure [place] High Sensitivity Troponin (TNIH) and attachments. BNP (brain natriuretic pepti de measurement)Ordered By: Manuel Anderson on 04-28-2024 Natriuretic peptide B (Bld) [Mass/Vol] 277.4 pg/mL High 0-100 [facility] Basic Metabolic Profile (BMP )on 04-28-2024 BUN/CRE 42.6 RATIO High 10-20 [facility] Comment on above: Order Comment: 'TROP ' Serial specimen #1, #2 or #3: 1 Performed By: #### L 500.2500, L100.0100, L501.4020 ####[facility] [address] [place], [place], [id number] [place],Total 9.1 mg/dL Normal 8.5-10.1 [facility] Comment on above: Order Comment: 'TROP ' Serial specimen #1, #2 or #3: 1 Performed By: #### L 500.2500, L100.0100, L501.4020 ####[facility] [address] [place], [address] Chloride [Moles/Vol] 95 mmol/L Low 98-107 [facility] Comment on above: Order Comment: 'TROP ' Serial specimen #1, #2 or #3: 1 Performed By: #### L 500.2500, L100.0100, L501.4020 ####[facility] [address] [place], [address] CO2 [Moles/Vol] 40.0 mmol/L High 21.0-32.0 [facility] Comment on above: Order Comment: 'TROP ' Serial specimen #1, #2 or #3: 1 Performed By: #### L 500.2500, L100.0100, L501.4020 ####[facility] [address] [place], [address] Creatinine [Mass/Vol] 0.73 mg/dL Normal 0.55-1.02 [facility] Comment on above: Order Comment: 'TROP ' Serial specimen #1, #2 or #3: 1 Result Comment: The validity of the calculated GFR GFRAA in patients over70 years has not been determined. Clinical correlation isessential. Performed By: #### L 500.2500, L100.0100, L501.4020 ####[facility] [address] [place], [address] ECRCL 133.05 ml/min Normal [facility] Comment on above: Order Comment: 'TROP ' Serial specimen #1, #2 or #3: 1 Performed By: #### L 500.2500, L100.0100, L501.4020 ####[facility] [address] [place], [address] EST GFR - AA 113 mL/min Normal >60 [facility] Comment on above: Order Comment: 'TROP ' Serial specimen #1, #2 or #3: 1 Result Comment: Afri can Bahraini GFR Calc Performed By: #### L 500.2500, L100.0100, L501.4020 ####[facility] [address] [place], [address] GAP 5 Normal 5-15 [facility] Comment on above: Order Comment: 'TROP ' Serial specimen #1, #2 or #3: 1 Performed By: #### L 500.2500, L100.0100, L501.4020 ####[facility] [address] [place], [address] GFR/1.73 sq M.predicted among non-blacks MDRD (S/P/Bld) [Vol rate/Area] 93 mL/min/{1.73_m2} Normal >60 [facility] Comment on above: Order Comment: 'TROP ' Serial specimen #1, #2 or #3: 1 Result Comment: Non- GFR Calc Performed By: #### L 500.2500, L100.0100, L501.4020 ####[facility] [address] [place], [address] Glucose [Mass/Vol] 76 mg/dL Normal 74-106 [facility] Comment on above: Order Comment: 'TROP ' Serial specimen #1, #2 or #3: 1 Performed By: #### L 500.2500, L100.0100, L501.4020 ####[facility] [address] [place], [address] Potassium [Moles/Vol] 4.5 mmol/L Normal 3.5-5.1 [facility] Comment on above: Order Comment: 'TROP ' Serial specimen #1, #2 or #3: 1 Result Comment: Slig ht Hemolysis, Result may be falsely increased. Performed By: #### L 500.2500, L100.0100, L501.4020 ####[facility] [address] [place], [address] Sodium [Moles/Vol] 141 mmol/L Normal 136-145 [facility] Comment on above: Order Comment: 'TROP ' Serial specimen #1, #2 or #3: 1 Performed By: #### L 500.2500, L100.0100, L501.4020 ####[facility] [address] [place], [address] Urea nitrogen [Mass/Vol] 31 mg/dL High 7-18 [facility] Comment on above: Order Comment: 'TROP ' Serial specimen #1, #2 or #3: 1 Performed By: #### L 500.2500, L100.0100, L501.4020 ####[facility] [address] [place], [address] Bilirubin Test strip Ql (U)O rdered By: Manuel Anderson on 04-28-2024 Bilirubin Ql (U) Negative Negative [facility] CBC W/Diff, Automatedon 04-10 Absolute Lymph 2.13 X10 3/uL Normal 0.83-4.51 [facility] Comment on above: Performed By: #### L 500.2500, L100.0100, L501.4020 ####[facility] [facility] [address] [place], [address] Absolute Neut 9.9 X10 3/uL High 2.0-7.7 [facility] Comment on above: Performed By: #### L 500.2500, L100.0100, L501.4020 ####[facility] [address] [place], [address] Basophils/100 WBC (Bld) 0.7 % Normal 0-1 [facility] Comment on above: Performed By: #### L 500.2500, L100.0100, L501.4020 ####[facility] [address] [place], [address] Eosinophils/100 WBC (Bld) 2.0 % Normal 0-5 [facility] Comment on above: Performed By: #### L 500.2500, L100.0100, L501.4020 ####[facility] [address] [place], [address] Erythrocyte distribution width (RBC) [Ratio] 14.9 % High 11.6-14.6 [facility] Comment on above: Performed By: #### L 500.2500, L100.0100, L501.4020 ####[facility] [address] [place], [address] Hematocrit (Bld) [Volume fraction] 39.0 % Normal 37-47 [facility] Comment on above: Performed By: #### L 500.2500, L100.0100, L501.4020 ####[facility] [address] [place], [address] Hemoglobin (Bld) [Mass/Vol] 12.1 g/dL Normal 12.0-15.0 [facility] Comment on above: Performed By: #### L 500.2500, L100.0100, L501.4020 ####[facility] [address] [place], [address] IG% 0.600 Normal 0.0-0.9 [facility] Comment on above: Result Comment: IG% - Immature Granulocytes (promyelocytes, myelocytes andmetamyelocytes) > 1% indicates that a LEFT SHIFT is Present. Performed By: #### L 500.2500, L100.0100, L501.4020 ####[facility] [address] [place], [address] Lymphocytes/100 WBC (Bld) 15.6 % Low 19-41 [facility] Comment on above: Performed By: #### L 500.2500, L100.0100, L501.4020 ####[facility] [address] [place], [address] MCH (RBC) [Entitic mass] 31.7 pg Normal 27.0-32.0 [facility] Comment on above: Performed By: #### L 500.2500, L100.0100, L501.4020 ####[facility] [address] [place], [address] MCHC (RBC) [Mass/Vol] 31.0 g/dL Low 32-36 [facility] Comment on above: Performed By: #### L 500.2500, L100.0100, L501.4020 ####[facility] [address] [place], [address] MCV (RBC) [Entitic vol] 102.1 fL High 81-99 [facility] Comment on above: Performed By: #### L 500.2500, L100.0100, L501.4020 ####[facility] [address] [place], [address] Monocytes/100 WBC (Bld) 9.0 % Normal 0-10 [facility] Comment on above: Performed By: #### L 500.2500, L100.0100, L501.4020 ####[facility] [address] [place], [address] Neutrophils/100 WBC (Bld) 72.1 % High 47-70 [facility] Comment on above: Performed By: #### L 500.2500, L100.0100, L501.4020 ####[facility] [address] [place], [address] Nucleated RBC (Bld) [#/Vol] 0.5 10*3/uL Normal 0-5 [facility] Comment on above: Performed By: #### L 500.2500, L100.0100, L501.4020 ####[facility] [address] [place], [address] Platelet mean volume (Bld) [Entitic vol] 12.1 fL High 6.2-12.0 [facility] Comment on above: Performed By: #### L 500.2500, L100.0100, L501.4020 ####[facility] [address] [place], [address] Platelets (Bld) [#/Vol] 185 10*3/uL Normal 150-450 [facility] Comment on above: Performed By: #### L 500.2500, L100.0100, L501.4020 ####[facility] [address] [place], [address] RBC (Bld) [#/Vol] 3.82 10*6/uL Low 4.2-5.4 [facility] Comment on above: Performed By: #### L 500.2500, L100.0100, L501.4020 ####[facility] [address] [place], [address] RDW SD 54.7 fl High 35.1-43.9 [facility] Comment on above: Performed By: #### L 500.2500, L100.0100, L501.4020 ####[facility] [address] [place], [address] WBC (Bld) [#/Vol] 13.7 10*3/uL High 4.4-11.0 [facility] Comment on above: Performed By: #### L 500.2500, L100.0100, L501.4020 ####[facility] [address] [place], [address] Chest PA and Lateralon 04-28 Chest PA and Lateral Normal [facility] Emergency Department Summary on 04-28-2024 Emergency Department Summary Normal [facility] H AND P Exam - Hospitaliston 04-28-2024 H&P Exam - Hospitalist Normal [facility] Hyaline casts LM.LPF (Urine sed) [#/Area]Ordered By: Manuel Anderson on 04-28-2024 Hyaline casts (Urine sed) [#/Area] 0 /[LPF] 0-5 [facility] Ketones Test strip Ql (U)Ord ered By: Manuel Anderson on 04-28-2024 Ketones Ql (U) Negative Negative [facility] L501.4020on 04-28-2024 TROPONIN-I HS 28 pg/mL Normal 3.0-54.0 [facility] Comment on above: Order Comment: 'TROP ' Serial specimen #1, #2 or #3: 1 Result Comment: Donald mcdonnell Note: New Test Units and Gender Specific Reference Ranges. For more information see Policy Stat Procedure [place] High Sensitivity Troponin (TNIH) and attachments. Performed By: #### L 500.2500, L100.0100, L501.4020 ####[facility] [address] [place], [address] Magnesium measurementOrdered By: Cinthia Torres on 04-28-2024 Magnesium [Mass/Vol] 2.3 mg/dL 1.6-2.6 [facility] Microscopic analysis of urin e for red blood cells (RBC)Ordered By: Manuel Anderson on 04-28-2024 Microscopic analysis of urine for red blood cells (RBC) 5-10 SEEN /hpf 0-5 [facility] Mucus LM Ql (Urine sed)Order ed By: Manuel Anderson on 04-28-2024 Mucus Ql (Urine sed) 1+ /hpf [facility] Nitrite Test strip Ql (U)Ord ered By: Manuel Anderson on 04-28-2024 Nitrite Ql (U) Negative Negative [facility] Protein Test strip Ql (U)Ord ered By: Manuel Anderson on 04-28-2024 Protein Ql (U) 15 mg/dl High Negative [facility] Squamous epithelial cells de tection in urine sediment by light microscopyOrdered By: Manuel Anderson on 04-28-2024 Epithelial cells.squamous LM Ql (Urine sed) 5-10 SEEN /hpf 5-10 [facility] Urinalysis, Completeon 04-28 BACTERIA 2+ /hpf Normal None Seen [facility] Comment on above: Order Comment: CLEAN CATCH Performed By: #### L 400.0001 ####[facility] [address] [place], [place], [id number] CAST,HYALINE 0-5 SEEN Normal 0-5 [facility] Comment on above: Order Comment: CLEAN CATCH Performed By: #### L 400.0001 ####[facility] [address] [place], [address] EPI,SQUAMOUS 5-10 SEEN Normal 5-10 [facility] Comment on above: Order Comment: CLEAN CATCH Performed By: #### L 400.0001 ####[facility] [address] [facility] [address] Mucus Ql (Urine sed) 1+ /hpf Normal [facility] Comment on above: Order Comment: CLEAN CATCH Performed By: #### L 400.0001 ####[facility] [address] [place], [address] RBC 5-10 SEEN Normal 0-5 [facility] Comment on above: Order Comment: CLEAN CATCH Performed By: #### L 400.0001 ####[facility] [address] [facility] [address] WBC 5-10 SEEN Normal 0-5 [facility] Comment on above: Order Comment: CLEAN CATCH Performed By: #### L 400.0001 ####[facility] [address] [facility] [address] Urine clarityOrdered By: Fabienne Anderson on 04-28-2024 Clarity (U) Sl. Cloudy Clear [facility] Urine color determinationOrd ered By: Manuel Anderson on 04-28-2024 Color (U) Yellow Yellow [facility] Urine glucose detectionOrder ed By: Manuel Anderson on 04-28-2024 Glucose Ql (U) Normal mg/dl Normal [facility] Urine leukocyte esterase det ection by dipstickOrdered By: Manuel Anderson on 04-28-2024 Leukocyte esterase Test strip Ql (U) 100 /ul High Negative [facility] Urine pHOrdered By: Manuel crowder on 04-28-2024 pH (U) 6.0 [pH] 5.0 - 8.0 [facility] Urine sediment bacteria coun t by microscopy (number/high power field)Ordered By: Manuel Anderson on 04-28-2024 Bacteria LM.HPF (Urine sed) [#/Area] 2 /[HPF] None Seen [facility] Urine specific gravity measu rementOrdered By: Maunel Anderson on 04-28-2024 Specific gravity (U) [Rel density] 1.015 1.002-1.030 [facility] Urine urobilinogen measureme ntOrdered By: Manuel Anderson on 04-28-2024 Urobilinogen Ql (U) Normal mg/dl Normal [facility] White blood cell countOrdere d By: Manuel Anderson on 04-28-2024 White blood cell count 5-10 SEEN /hpf 0-5 [facility] CNPNon 04-27-2024 CNPN Telephone (INTMWS) CHANTELLSIA Jacques ([id number]) 1980 F Date Time Provider Department 04/27/24 MARILEE THAKUR INTRahWS During your visit today, we recorded the following information about you: Rah Turner RN 04/27/2024 3:16 PM Signed Enrique- [facility]- called to give pcp update on patient. Reports they tried to send patient out today- reports pt is lethargic, POX running low when Enrique was there: 90%- pt used her own POX and got 96-97%, pt having increased confusion, pt is acting off. Pt refusing weights since last Fri, and refusing showers and bed baths. Pt [...] notifying patient's doctors, and will call patient's dental floss packer next. Marilee Thakur MD 04/27/2024 5:25 PM [...] 1 tablet by mouth once daily. 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 Normal [facility] US SOFT TISSUE ABDOMENon US SOFT TISSUE ABDOMEN * * *Final Report * * * DATE OF EXAM: Apr 14 [...] size of the collections, or percutaneous aspiration. Bi Report Developer: PSCB Transcribe Date/Time: Apr 16 2024 1:34P Dictated by : ESTHER ARANGO MD This examination was interpreted and the report reviewed and electronically signed by: ESTHER ARANGO MD on Apr 16 2024 1:39PM EST [id number] Normal [facility] CNPNon 04-12-2024 CNPN Telephone (INTWS) SIA ABDUL ([id number]) 1980 F Date Time Provider Department 04/12/24 MARILEE THAKURWS During your visit today, we recorded the following information about you: Rah Turner RN 04/12/2024 12:48 PM Signed [place] asking pcp to discontinue the Dulera since it is no longer covered by insurance and the Breo Ellipta was sent in it's place since insurance does cover Breo. [place] is going to go ahead and discontinue the dulera on their end. Marilee Thakur MD 04/12/2024 5:32 PM Signed Noted Allergies As of Date: 04/12/2024 Noted Allergy Reaction BEE STING 02/28/2023 10 - Anaphylaxis BUMEX (BUMETANIDE) 03/12/2024 6 - Diarrhea 14 - Other: See Comments Comments: headroxann DILANTIN (PHENYTOIN SODIUM EXTEND*01/28/2006 Date Reviewed: 04/06/2024 [...] 1 tablet by mouth once daily. - Vioxn-0-YTG-EPA-Fish Oil 1,000 mg (120 mg-180 mg) cap [...] syndrome [G47.33] more content not included)... [facility] Tele[facility] (INTMWS) SIA ABDUL ([id number]) 1980 F Date Time Provider Department 04/09/24 MARILEE THAKUR INTMWS During your visit today, [...] PA for Breo is approved Authorization number: [id number] Authorized from April 12, 2024 to April [...] 1 tablet by mouth once daily. 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 Normal [facility] 04-08-2024 [facility] Telephone (INTMWS) SIA ABDUL ([id number]) 1980 F Date Time Provider Department 04/08/24 MARILEE THAKUR INTRahWS During your visit today, we recorded the following information about you: Pamela Singh LPN 04/08/2024 1:51 PM Signed Leia with [facility], PT called to let you know [...] OCCA - Fully Assessed Reason for Visit: [facility] [Other] Prescriptions as of 04/08/2024 - [...] 1 tablet by mouth once daily. - Fagjo-2-HVL-EPA-Fish Oil 1,000 mg (120 mg-180 mg) cap [...] included)... Normal [facility] CNOVon 04-06-2024 CNOV Office Visit (VASSWS ) SIA ABDUL ([id number]) 1980 F Date Time Provider Department 04/06/24 10:00 AM HILDA JEONG VASSWS During your visit today, we recorded the following information about you: Pulse Blood pressure 76/minute 121/83 Hilda Jeong, DO 04/06/2024 12:56 PM Signed [facility] [place] DEPARTMENT OF VASCULAR SURGERY OUTPATIENT VISIT DATE April 06, 2024 OUTPATIENT VISIT TYPE CONSULTATION SERVICE DATE: 04/06/2024 SERVICE TIME: 9:43 AM PRIMARY CARE PHYSICIAN: Marilee Thakur MD REFERRING PROVIDER: Marilee Thakur [address] [facility] [address] Consult requested for an opinion regarding the [...] Take 1 tablet by mouth once daily. Sxcfj-8-UFX-EPA-Fish Oil 1,000 mg (120 mg-180 mg) cap [...] included)... Normal [facility] Tal 04-06-2024 [facility] Telephone (INTMWS) SIA ABDUL ([id number]) 1980 F Date Time Provider Department 04/06/24 MARILEE THAKUR INTILANA During your visit today, we recorded the following information about you: Eulalia Laureano RN 04/06/2024 11:09 AM Signed Enrique Mckenna with [facility] calls with update. Enrique reports that [...] which isn't typical for patient. Enrique contacting dental floss packer as well. RODRÍGUEZ Braden Chitra, MD 04/07/2024 1:05 PM Signed Ok I see that he is taking the demadex, so should continue it , could take an extra if needed Marilee Lassiter MD, Mary, LPN 04/08/2024 9:33 AM Signed Called and spoke to Clarence the nurse caring for patient, Clarence asking, please send demadex order to [facility] pharmacy with new directions. Dosage change Thank [...] 04/09/2024 1:03 PM Signed Shobha Dallas with [facility] called and is notified of providers message and instructions. She voices understanding. She asked if we could fax the new prescription to the nurse Rafia at fax # [phone]. Rx faxed. Teresa Ferrera RN Allergies As [...] 1 tablet by mouth once daily. - Axhif-0-YTN-EPA-Fish Oil 1,000 mg (120 mg-180 mg) cap [...] once jaimie (more content not included)... Normal [facility]20[facility] SIA ABDUL ([id number]) 1980 F Date Time Provider Department 04/02/24 MARILEE THAKUR INTRahWS During your visit today, we recorded the following information about you: Pepper Walsh RN 04/02/2024 8:32 AM Addendum Clarence, a nurse with [facility] is calling to ask if provider will approve re certification for long term, PT and OT services for patient. Clarence would like a call back with provider's approval, . RODRÍGUEZ Blake Joy, APRN.OBED 04/02/2024 9:13 AM Signed Agree with need for these services and agree to follow Mika Kaplan APRN.Candelaria Perez LPN 04/02/2024 9:37 AM Signed Phoned Clarence and went over notes below from Mika Kaplan STRINGED INSTRUMENT REPAIRER with understanding. Allergies As of Date: 04/02/2024 Noted Allergy Reaction BEE STING 02/28/2023 10 - Anaphylaxis BUMEX (BUMETANIDE) 03/12/2024 6 - Diarrhea 14 - Other: See Comments Comments: chula DILANTIN (PHENYTOIN SODIUM EXTEND*01/28/2006 Date Reviewed: 03/12/2024 Reviewed [...] 1 tablet by mouth once daily. - Hjiha-2-OZT-EPA-Fish Oil 1,000 mg (120 mg-180 mg) cap [...] included)... Normal [facility] Bacteria Ur Culton 5 Bacteria identified Cx [...] on. Normal [facility] Comment on above: Performed By: #### 6 30-4 ####[facility] [id number] [place] [address] [place] CBC panel Auto (Bld)on 04-01 Erythrocyte distribution width (RBC) [Ratio] 14.0 % Normal 11.5-15.0 [facility] Comment on above: Order Comment: Speci men Type: BLOOD SPECIMEN Ordering Facility: [facility] Address: [address] [place] [address] Performed By: #### 5 8410-2 #### [facility] CLIA [id number] [address] [place] [address] [place] Hematocrit (Bld) [Volume fraction] 41.0 % Normal 36.0-46.0 [facility] Comment on above: Order Comment: Speci men Type: BLOOD SPECIMEN Ordering Facility: [facility] Address: [address] [place] [address] Performed By: #### 5 8410-2 #### [facility] CLIA [id number] [address] [place] [address] [place] Hemoglobin (Bld) [Mass/Vol] 12.1 g/dL Normal 11.5-15.5 [facility] Comment on above: Order Comment: Speci men Type: BLOOD SPECIMEN Ordering Facility: [facility] Address: [address] [place] [address] Performed By: #### 5 8410-2 #### [facility] CLIA [id number] [address] [place] [address] [place] MCH (RBC) [Entitic mass] 31.3 pg Normal 26.0-34.0 [facility] Comment on above: Order Comment: Speci men Type: BLOOD SPECIMEN Ordering Facility: [facility] Address: [address] [place] [address] Performed By: #### 5 8410-2 #### [facility] CLIA [id number] [address] [place] [address] [place] MCHC (RBC) [Mass/Vol] 29.5 g/dL Low 30.5-36.0 [facility] Comment on above: Order Comment: Speci men Type: BLOOD SPECIMEN Ordering Facility: [facility] Address: [address] [place] [address] Performed By: #### 5 8410-2 #### [facility] CLIA [id number] [address] [place] [address] [place] MCV (RBC) [Entitic vol] 106.2 fL High 80.0-100.0 [facility] Comment on above: Order Comment: Speci men Type: BLOOD SPECIMEN Ordering Facility: [facility] Address: [address] [place] [address] Performed By: #### 5 8410-2 #### [facility] CLIA [id number] [address] [place] [address] [place] Nucleated RBC (Bld) [#/Vol] 10*3/uL Normal <0.01 [facility] Comment on above: Order Comment: Speci men Type: BLOOD SPECIMEN Ordering Facility: [facility] Address: [address] [place] [address] Performed By: #### 5 8410-2 #### [facility] CLIA [id number] [address] [place] [address] [place] Platelet mean volume (Bld) [Entitic vol] 11.9 fL Normal 9.0-12.7 [facility] Comment on above: Order Comment: Speci men Type: BLOOD SPECIMEN Ordering Facility: [facility] Address: [address] [place] [address] Performed By: #### 5 8410-2 #### [facility] CLIA [id number] [address] [place] [address] [place] Platelets (Bld) [#/Vol] 240 10*3/uL Normal 150-400 [facility] Comment on above: Order Comment: Speci men Type: BLOOD SPECIMEN Ordering Facility: [facility] Address: [address] [place] [address] Performed By: #### 5 8410-2 #### [facility] CLIA [id number] [address] [place] [address] [place] RBC (Bld) [#/Vol] 3.86 10*6/uL Low 3.90-5.20 [facility] Comment on above: Order Comment: Speci men Type: BLOOD SPECIMEN Ordering Facility: [facility] Address: [address] [place] [address] Performed By: #### 5 8410-2 #### [facility] CLIA [id number] [address] [place] [address] [place] WBC (Bld) [#/Vol] 10.72 10*3/uL Normal 3.70-11.00 [facility] Comment on above: Order Comment: Speci men Type: BLOOD SPECIMEN Ordering Facility: [facility] Address: [address] [place] [address] Performed By: #### 5 8410-2 #### [facility] CLIA [id number] [address] [place] [address] [facility] [place] CNOVon 04-01-2024 CNOV Office Visit (INTMWS ) CHANTELLSIA WISEMAN ([id number]) 1980 F Date Time Provider Department 04/01/24 11:00 AM MIKA KAPLAN INTMWS During your visit today, we recorded the following information about you: Pulse Respiration Blood pressure Weight 72/minute 16/minute 122/80 127.5 kg Mika Kaplan APRN.CNP 04/01/2024 11:48 AM Signed CC: Patient presents with: Physical: Physical HPI Rachellejacques Abdul is a 43 year old female [...] Take 1 tablet by mouth once daily. Wpygk-1-ASO-EPA-Fish Oil 1,000 mg (120 mg-180 mg) cap [...] included)... Normal [facility] TSH SerPl-aCncon 04-01-2024 TSH Qn 1.750 m[IU]/L Normal 0.270-4.200 [facility] Comment on above: Order Comment: Speci men Type: BLOOD SPECIMEN Ordering Facility: [facility] Address: [address] [place] [address] Result Comment: If t he patient is , TSH reference range varies by gestational period: First Trimester (weeks 9-12): 0.180-2.990 mIU/L Second Trimester: 0.110-3.980 mIU/L Third Trimester: 0.480-4.710 mIU/L Barney Campbell et al. A Practical Approach for the Verifications and Determination of Site- and Trimester-Specific Reference Intervals for Thyroid Function tests in . Thyroid, 2019:29:3:412-420. Marbin Stein et al. 2017 Guidelines of the [place] [employer] for the Diagnosis and Management of Thyroid Disease during and the . Thyroid, 2017:27:3:315-389. Performed By: #### 3 016-3 #### [facility] CLIA [id number] [address] [place] [address] [place] UA DIP, URINE (POC)on 2024 BILIRUBIN UA (POCT) Negative Negative [facility] CLARITY UA (POCT) Clear [facility] COLOR UA (POCT) Yellow [facility] GLUCOSE UA (POCT) Negative Negative mg/dL [facility] Hemoglobin Ql (U) Large Abnormal Negative [facility] Interpretation and review of laboratory results Abnormal [facility] KETONE UA (POCT) Negative Negative mg/dL [facility] LEUKOCYTES UA (POCT) Negative [facility] NITRITE UA (POCT) Negative Negative [facility] PH UA (POCT) 7.5 4.5 - 8.0 [facility] Protein Ql (U) Negative Negative mg/dL [facility] SPECIFIC GRAVITY UA (POCT) 1.015 1.005 - 1.030 [facility] UROBILINOGEN UA (POCT) 0.2 Phyllis l E.U./dL [facility] Location:[facility], [address] [facility], [place], [place], [id number] [place] [address] POINT OF CARE [facility] Urinalysis complete panel (U )on 04-01-2024 Bacteria LM.HPF (Urine sed) [#/Area] Negative Normal Negative [facility] Comment on above: Order Comment: Speci men Type: URINE SPECIMEN Ordering Facility: [facility] Address: [address] [place] [address] Performed By: #### 2 4356-8 #### [facility] CLIA [id number] [address] [place] [address] [place] Bilirubin Ql (U) Negative Normal Negative [facility] Comment on above: Order Comment: Speci men Type: URINE SPECIMEN Ordering Facility: [facility] Address: [address] [place] [address] Performed By: #### 2 4356-8 #### [facility] CLIA [id number] [address] [place] [address] [place] Clarity (Unsp spec) Clear Normal Clear [facility] Comment on above: Order Comment: Speci men Type: URINE SPECIMEN Ordering Facility[facility] Address: [address] [place] [address] Performed By: #### 2 4356-8 #### [facility] CLIA [id number] [address] [place] [address] [place] Color (U) Yellow Normal Yellow [facility] Comment on above: Order Comment: Speci men Type: URINE SPECIMEN Ordering Facility: [facility] Address: [address] [place] [address] Performed By: #### 2 4356-8 #### [facility] CLIA [id number] [address] [place] [address] [place] Epithelial cells LM.HPF (Urine sed) [#/Area] None Seen Normal [facility] Comment on above: Order Comment: Speci men Type: URINE SPECIMEN Ordering Facility: [facility] Address: [address] [place] [address] Performed By: #### 2 4356-8 #### [facility] CLIA [id number] [address] [place] [address] [place] Glucose Test strip (U) [Mass/Vol] Negative Normal Negative [facility] Comment on above: Order Comment: Speci men Type: URINE SPECIMEN Ordering Facility: [facility] Address: [address] [place] [address] Performed By: #### 2 4356-8 #### [facility] CLIA [id number] [address] [place] [address] [place] Hemoglobin Ql (U) 2+ Abnormal Negative [facility] Comment on above: Order Comment: Speci men Type: URINE SPECIMEN Ordering Facility: [facility] Address: [address] [place] [address] Performed By: #### 2 4356-8 #### [facility] CLIA [id number] [address] [place] [address] [place] Hyaline casts (Urine sed) [#/Area] 0 /[LPF] Normal 0 /LPF [facility] Comment on above: Order Comment: Speci men Type: URINE SPECIMEN Ordering Facility: [facility] Address: [address] [place] [address] Performed By: #### 2 4356-8 #### [facility] CLIA [id number] [address] [place] [address] [place] Ketones Ql (U) Negative Normal Negative [facility] Comment on above: Order Comment: Speci men Type: URINE SPECIMEN Ordering Facility: [facility] Address: [address] [place] [address] Performed By: #### 2 4356-8 #### [facility] CLIA [id number] [address] [place] [address] [place] Leukocyte esterase Test strip Ql (U) Negative Normal Negative [facility] Comment on above: Order Comment: Speci men Type: URINE SPECIMEN Ordering Facility: [facility] Address: [address] [place] [address] Performed By: #### 2 4356-8 #### [facility] CLIA [id number] [address] [place] [address] [place] Nitrite Ql (U) Negative Normal Negative [facility] Comment on above: Order Comment: Speci men Type: URINE SPECIMEN Ordering Facility: [facility] Address: [address] [place] [address] Performed By: #### 2 4356-8 #### [facility] CLIA [id number] [address] [place] [address] [place] pH (U) 8.0 [pH] Normal <8.5 [facility] Comment on above: Order Comment: Speci men Type: URINE SPECIMEN Ordering Facility: [facility] Address: [address] [place] [address] Performed By: #### 2 4356-8 #### [facility] CLIA [id number] [address] [place] [address] [place] Protein (U) [Mass/Vol] Negative Normal Negative [facility] Comment on above: Order Comment: Speci men Type: URINE SPECIMEN Ordering Facility: [facility] Address: [address] [place] [address] Performed By: #### 2 4356-8 #### [facility] CLIA [id number] [address] [place] [address] [place] RBC LM.HPF (Urine sed) [#/Area] 11-20 /HPF Abnormal 0-2 /HPF [facility] Comment on above: Order Comment: Speci men Type: URINE SPECIMEN Ordering Facility: [facility] Address: [address] [place] [address] Performed By: #### 2 4356-8 #### [facility] CLIA [id number] [address] [place] [address] [place] Specific gravity (U) [Rel density] 1.009 Normal 1.005-1.030 [facility] Comment on above: Order Comment: Speci men Type: URINE SPECIMEN Ordering Facility: [facility] Address: [address] [place] [address] Performed By: #### 2 4356-8 #### [facility] IA [id number] [address] [place] [address] [place] Urobilinogen Ql (U) 0.2 EU/dL Normal 0.2-1.0 EU/dL [facility] Comment on above: Order Comment: Speci men Type: URINE SPECIMEN Ordering Facility: [facility] Address: [address] [place] [address] Performed By: #### 2 4356-8 #### [facility] IA [id number] [address] [place] [address] [place] WBC LM.HPF (Urine sed) [#/Area] 0-5 /HPF Normal 0-5 /HPF [facility] Comment on above: Order Comment: Speci men Type: URINE SPECIMEN Ordering Facility: [facility] Address: [address] [place] [address] Performed By: #### 2 4356-8 #### [facility] IA [id number] [address] [place] [address] [place] CNPSachi 03-29-2024 CNPN Telephone (INTMWS) SIA ABDUL ([id number]) 1980 F Date Time Provider Department 03/29/24 MARILEE THAKUR During your visit today, we recorded the following information about you: Teresa Ferrera, RN 03/29/2024 4:26 PM Signed Yazan with [facility] called in and reports [facility] reached out to them with a referral. They states they have been trying to get a hold of the Pt, but haven't been able to. She states it says she lives [facility] a [facility], but no the name of the skilled nursing. I have her the names and number we had to get in contact with the Pt. I told her we had Shobha Burt as a contact at the skilled nursing [phone], which was the same phone # we had for the Pts home and mobile phone. Then we had Anali Gibson as her health care specialist at [phone]. She states she had tried calling the Pts mother, but was not able to get a hold of her. She said she would try these numbers. Allergies As of Date: 03/29/2024 Noted Allergy Reaction BEE STING 02/28/2023 10 - Anaphylaxis BUMEX (BUMETANIDE) 03/12/2024 6 - Diarrhea 14 - Other: See Comments Comments: chula DILANTIMelia (PHENYTOIN SODIUM EXTEND*01/28/2006 Date Reviewed: 03/12/2024 Reviewed by: Isela Leyva LPN - Fully Assessed Reason for Visit: Patient Question [2027] Prescriptions as of 03/29/2024 - IRAIDA 0.35 [...] 1 tablet by mouth once daily. - Hjogs-4-REY-EPA-Fish Oil 1,000 mg (120 mg-180 mg) cap [...] (chronic) (peripheral (more content not included)... Normal [facility] 03-24-2024 [facility] Telephone (INTMWS) SIA ABDUL ([id number]) 1980 F Date Time Provider Department 03/24/24 MARILEE THAKUR INTMWS During your visit today, we recorded the following information about you: Pamela Singh LPN 03/24/2024 11:44 AM Signed Shobha with [facility] called to let you know af ax was sent approx around 11 am today 03-24-24. In this fax they are exact specific that need to be on Dr. Thakur last note and they need faxed back to them as soon as possible. This is regarding Lymphedema Leg Compressions Pump. FAX: [phone] JORDAN Boston Rachel L, MA 03/24/2024 12:28 PM Signed Faxed as requested. COMFORT Willingham Mary, LPN 03/25/2024 2:34 PM Signed Refaxed last office note per [facility] Attn Rafia Gomez Lacie Reyes LPN March [...] 1 tablet by mouth once daily. - Zqtba-4-IMK-EPA-Fish Oil 1,000 mg (120 mg-180 mg) cap [...] included)... Normal [facility] Renal function 2000 panelon 03-24-2024 Albumin BCP dye [Mass/Vol] 4.2 g/dL 3.4 - 5.0 g/dL [facility] Anion gap [Moles/Vol] 17 mmol/L 10 - 2 0 mmol/L [facility] Calcium [Mass/Vol] 9.3 mg/dL 8.6 - 10. 6 mg/dL [facility] Chloride [Moles/Vol] 87 mmol/L Low 98 - 10 7 mmol/L [facility] CO2 [Moles/Vol] 39 mmol/L High 21 - 32 mmol/L [facility] Creatinine [Mass/Vol] 0.55 mg/dL 0.50 - 1.05 mg/dL [facility] eGFR - PINF [facility] Comment on above: Calculations of roby mated GFR are performed using the 2020 CKD-EPI Study Refit equation without the race variable for the IDMS-Traceable creatinine methods. https://jasn.asnjournals.org/content/ASN.2020 380134 Glucose [Mass/Vol] 79 mg/dL 74 - 99 mg/dL [facility] Interpretation and review of laboratory results Abnormal [facility] Phosphate [Mass/Vol] 3.4 mg/dL 2.5 - 4 .9 mg/dL [facility] Comment on above: The performance jeffrey acteristics of phosphorus testing in heparinized plasma have been validated by the individual laboratory site where testing is performed. Testing on heparinized plasma is not approved by the FDA; however, such approval is not necessary. Potassium [Moles/Vol] 3.8 mmol/L 3.5 - 5.3 mmol/L [facility] Sodium [Moles/Vol] 139 mmol/L 136 - 145 mmol/L [facility] Urea nitrogen [Mass/Vol] 14 mg/dL 6 - 23 mg/dL [facility] Renal function 2000 panelon 03-23-2024 Albumin BCP dye [Mass/Vol] 4.2 g/dL Normal 3.4-5.0 [facility] Comment on above: Performed By: #### 2 4362-6 #### ENEDINA Campbell ([id number]) [facility] ([facility]) [address] [place] [address] Anion gap [Moles/Vol] 17 mmol/L Normal 10-20 [facility] Comment on above: Performed By: #### 2 4362-6 #### ENEDINA Campbell ([id number]) [facility] ([facility]) [address] [place] [address] Calcium [Mass/Vol] 9.3 mg/dL Normal 8.6-10.6 [facility] Comment on above: Performed By: #### 2 4362-6 #### ENEDINA Campbell ([id number]) [facility] ([facility]) [address] [place] [address] Chloride [Moles/Vol] 87 mmol/L Low 98-107 [facility] Comment on above: Performed By: #### 2 4362-6 #### ENEDINA Campbell ([id number]) [facility] ([facility]) [address] [place] [address] CO2 [Moles/Vol] 39 mmol/L High 21-32 [facility] Comment on above: Performed By: #### 2 4362-6 #### ENEDINA Campbell ([id number]) [facility] ([facility]) [id number] [place] [address] Creatinine [Mass/Vol] 0.55 mg/dL Normal 0.50-1.05 [facility] Comment on above: Performed By: #### 2 4362-6 #### ENEDINA Campbell ([id number]) [facility] ([facility]) [id number] [place] [address] GFR/1.73 sq M.predicted MDRD (S/P/Bld) [Vol rate/Area] mL/min/{1.73_m2} Normal >60 [facility] Comment on above: Result Comment: Calc ulations of estimated GFR are performed using the 2020 CKD-EPI Study Refit equation without the race variable for the IDMS-Traceable creatinine methods. https://jasn.asnjournals.org/content/early//ASN.2020 215625 Performed By: #### 2 4362-6 #### ENEDINA Campbell ([id number]) [facility] ([facility]) [address] [place] [address] Glucose [Mass/Vol] 79 mg/dL Normal 74-99 [facility] Comment on above: Performed By: #### 2 4362-6 #### ENEDINA Campbell ([id number]) [facility] ([facility]) [id number] [place] [address] Phosphate [Mass/Vol] 3.4 mg/dL Normal 2.5-4.9 [facility] Comment on above: Result Comment: The performance characteristics of phosphorus testing in heparinized plasma have been validated by the individual laboratory site where testing is performed. Testing on heparinized plasma is not approved by the FDA; however, such approval is not necessary. Performed By: #### 2 4362-6 #### ENEDINA Campbell ([id number]) [facility] ([facility]) [address] [place] [address] Potassium [Moles/Vol] 3.8 mmol/L Normal 3.5-5.3 [facility] Comment on above: Performed By: #### 2 4362-6 #### ENEDINA Campbell ([id number]) [facility] ([facility]) [id number] [place] [address] Sodium [Moles/Vol] 139 mmol/L Normal 136-145 [facility] Comment on above: Performed By: #### 2 4362-6 #### ENEDINA Campbell ([id number]) [facility] ([facility]) [address] [place] [address] Urea nitrogen [Mass/Vol] 14 mg/dL Normal 6-23 [facility] Comment on above: Performed By: #### 2 4362-6 #### ENEDINA Campbell ([id number]) [facility] ([facility]) [address] [place] [address] Tla 03-16-2024 CNPN Telephone (INTMWS) SIA ABDUL ([id number]) 1980 F Date Time Provider Department 03/16/24 MARILEE THAKUR INTRahWS During your visit today, we recorded the following information about you: Lillie Marshall, RN 03/16/2024 9:51 AM Signed Clarence from [facility] calls with a couple of things [...] can start taking medication. Clarence also notified dental floss packer regarding weight gain. Patient has a vaginal prolapse. This was noted last time patient was in hospital. Mother had reported that patient has had prolapse for awhile. Staff has noticed that when patient's wipes there is a little blood on the toilet paper. Clarence asking if this can be address at patient's appointment on 03/22/2024. Please review and advise, RODRÍGUEZ Carnes Joy, APRN.BULB INSPECTOR 03/17/2024 7:20 AM Signed Will address at upcoming appointment. Has patient received her lasix? Is she having any symptoms? Thank you Mika Kaplan APRN.BULB INSPECTOR María Avila MA 03/17/2024 9:44 AM Signed Clarence has not heard that medication was not received so he is assuming it arrived. Allergies As of Date: 03/16/2024 Noted Allergy Reaction BEE STING 02/28/2023 10 - Anaphylaxis BUMEX (BUMETANIDE) 03/12/2024 6 - Diarrhea 14 - Other: See Comments Comments: chula GHULAM (PHENYTOIN SODIUM EXTEND*01/28/2006 Date Reviewed: 03/12/2024 [...] 1 tablet by mouth once daily. - Gdfya-4-JAZ-EPA-Fish Oil 1,000 mg (120 mg-180 mg) cap [...] included)... Normal [facility] CNOVon 03-12-2024 CNOV Office Visit (INTMWS ) SIA ABDUL ([id number]) 1980 F Date Time Provider Department 03/12/24 9:40 AM RAJESH CORONA INTMWS During your visit today, we recorded the following information about you: Pulse Blood pressure Weight 74/minute 116/85 136.7 kg Rajesh Corona MD 03/13/2024 11:03 PM Signed This note was created using [employer]. Subjective Patient presents with: Hospital F/U: [facility] 02/28/24 for pulmonary edema and severe pain [...] wearing the pumps during the day. PCP MD Sia Peralta was here with her caregiver. She was [...] Take 1 tablet by mouth once daily. Tayjv-9-DJQ-EPA-Fish Oil 1,000 mg (120 mg-180 mg) cap [...] of breath. (more content not included)... [facility] Telephone (INTMWS) SIA ABDUL ([id number]) 1980 F Date Time Provider Department 03/12/24 MARILEE THAKUR INTRahWS During your visit today, we recorded the following information about you: Eulalia Laureano RN 03/12/2024 1:09 PM Signed Blanca with N [...] 14 - Other: See Comments Comments: shikharoxann DILANTIN (PHENYTOIN SODIUM EXTEND*01/28/2006 Date Reviewed: 03/12/2024 Reviewed [...] 1 tablet by mouth once daily. - Ogffg-8-ZOU-EPA-Fish Oil 1,000 mg (120 mg-180 mg) cap [...] included)... Normal [facility] Tal [facility]20[facility] SIA ABDUL ([id number]) 1980 F Date Time Provider Department 03/11/24 MIKA KAPLAN During your visit today, we recorded the following information about you: Candelaria Ball LPN 03/11/2024 9:45 AM Signed Shobha from [facility] calling patient said Bumex has been giving her a headache. She was taken off the generic lasix and put on bumex 1 mg one tablet twice daily when she was in [facility]. She was discharged on 03/01/2024, patient has gained 13 pounds since that date. She has refused to take Bumex last night and this morning dose. Patient uses [facility] for her pharmacy. Asking if she can have medication discontinued and placed on something else? Her next appt is scheduled on 03/22/2024 with Mika Kaplan for a physical. Please advise Sagar Stewart MD 03/11/2024 9:47 AM Signed Would recommend seeing a provider sooner since has gained weight off diuretic. If short of breath, to Teresa Caruso RN 03/11/2024 10:57 AM Signed Shobha from [facility] called and is notified of providers message [...] Visit: Medication Question [1478] Prescriptions as of 03/11/2024 - midodrine (PROAMITINE) [...] 1 tablet by mouth once daily. - Hfthw-5-CGH-EPA-Fish Oil 1,000 mg (120 mg-180 mg) cap [...] of consciousnes (more content not included)... Normal [facility] 03-09-20[facility] SIA ABDUL ([id number]) 1980 F Date Time Provider Department 03/09/24 MARILEE THAKUR INTWS During your visit today, we recorded the following information about you: Pepper Walsh RN 03/09/2024 11:48 AM Signed Leia, Physical Therapist with [facility] calling and requesting verbal order to continue in-home Physical Therapy for patient. Please call Leia at [phone]. May leave detailed message on this secure VM. RODRÍGUEZ Blake Joy, APRN.BULB INSPECTOR 03/12/2024 8:11 AM Signed Ok to continue in home physical therapy. Thank you Mika Kaplan APRN.Pepper Boss RN 03/12/2024 8:17 AM Signed Leia, Physical Therapist with [facility], notified. Pepper Walsh RN Allergies As [...] 1 tablet by mouth once daily. - Tycrm-1-RIN-EPA-Fish Oil 1,000 mg (120 mg-180 mg) cap [...] included)... Normal [facility] Ammoniaon 03-01-2024 Ammonia (P) [Moles/Vol] 35.0 umol/L High [facility] Comment on above: Performed By: #### L 503.5510 ####[facility] [address] [place], [address] Basic Metabolic Profile (BMP )on 03-01-2024 BUN/CRE 39.1 RATIO High - [facility] Comment on above: Performed By: #### L 500.2500, L501.2300, L501.5200 ####[facility] [address] [place], [address] CA,Total 8.6 mg/dL Normal 8.5-10.1 [facility] Comment on above: Performed By: #### L 500.2500, L501.2300, L501.5200 ####[facility] [address] [place], [address] Chloride [Moles/Vol] 100 mmol/L Normal 98-107 [facility] Comment on above: Performed By: #### L 500.2500, L501.2300, L501.5200 ####[facility] [address] [place], [address] CO2 [Moles/Vol] 38.0 mmol/L High 21.0-32.0 [facility] Comment on above: Performed By: #### L 500.2500, L501.2300, L501.5200 ####[facility] [address] [place], [address] Creatinine [Mass/Vol] 0.66 mg/dL Normal 0.55-1.02 [facility] Comment on above: Result Comment: The validity of the calculated GFR GFRAA in patients over70 years has not been determined. Clinical correlation isessential. Performed By: #### L 500.2500, L501.2300, L501.5200 ####[facility] [address] [place], [address] ECRCL 140.85 ml/min Normal [facility] Comment on above: Performed By: #### L 500.2500, L501.2300, L501.5200 ####[facility] [address] [place], [address] EST GFR - AA 125 mL/min Normal >60 [facility] Comment on above: Result Comment: Afri can Bahraini GFR Calc Performed By: #### L 500.2500, L501.2300, L501.5200 ####[facility] [address] [place], [address] GAP 1 Low 5-15 [facility] Comment on above: Performed By: #### L 500.2500, L501.2300, L501.5200 ####[facility] [address] [place], [address] GFR/1.73 sq M.predicted among non-blacks MDRD (S/P/Bld) [Vol rate/Area] 104 mL/min/{1.73_m2} Normal >60 [facility] Comment on above: Result Comment: Non- GFR Calc Performed By: #### L 500.2500, L501.2300, L501.5200 ####[facility] [address] [place], [address] Glucose [Mass/Vol] 85 mg/dL Normal 74-106 [facility] Comment on above: Performed By: #### L 500.2500, L501.2300, L501.5200 ####[facility] [address] [place], [address] Potassium [Moles/Vol] 4.6 mmol/L Normal 3.5-5.1 [facility] Comment on above: Result Comment: Slig ht Hemolysis, Result may be falsely increased. Performed By: #### L 500.2500, L501.2300, L501.5200 ####[facility] [address] [place], [address] Sodium [Moles/Vol] 138 mmol/L Normal 136-145 [facility] Comment on above: Performed By: #### L 500.2500, L501.2300, L501.5200 ####[facility] [address] [place], [address] Urea nitrogen [Mass/Vol] 26 mg/dL High 7-18 [facility] Comment on above: Performed By: #### L 500.2500, L501.2300, L501.5200 ####[facility] [address] [place], [address] Bedside Glucoseon 03-01-2024 FINGERSTICK GLU 91 mg/dL Normal 74-106 [facility] Comment on above: Result Comment: ETHAN PRITCHETT OF PATIENT CARE PER NURSING PROTOCOL Performed By: #### L 501.080 ####[facility] [address] [place], [address] Brain/Head without Contrasto n 03-01-2024 Brain/Head without Contrast Normal [facility] Magnesiumon 03-01-2024 Magnesium [Mass/Vol] 2.3 mg/dL Normal 1.6-2.6 [facility] Comment on above: Result Comment: Slig ht Hemolysis, Result may be falsely increased. Performed By: #### L 500.2500, L501.2300, L501.5200 ####[facility] [address] [place], [address] Phosphoruson 03-01-2024 Phosphate [Mass/Vol] 3.6 mg/dL Normal 2.5-4.9 [facility] Comment on above: Performed By: #### L 500.2500, L501.2300, L501.5200 ####[facility] [address] [place], [address] Venous Blood Gason 4 Blood Gas Type SATISH [facility] Comment on above: Performed By: #### L 9000.0810 ####[facility] [address] [place], [address] CO2 [Moles/Vol] 39 mmol/L High 23-33 [facility] Comment on above: Performed By: #### L 9000.0810 ####[facility] [address] [place], [address] HCO3 (Bld) [Moles/Vol] 37 mmol/L High 22-26 [facility] Comment on above: Performed By: #### L 9000.0810 ####[facility] [address] [place], [address] O2 Delivery Dev Not entered [facility] Comment on above: Performed By: #### L 9000.0810 ####[facility] [address] [place], [address] SITE Not entered [facility] Comment on above: Performed By: #### L 9000.0810 ####[facility] [address] [place], [address] VBG BE 11 mmol/L High -1.0-3.5 [facility] Comment on above: Performed By: #### L 9000.0810 ####[facility] [address] [place], [address] VBG pCO2 65.5 mmHg High 41-51 [facility] Comment on above: Performed By: #### L 9000.0810 ####[facility] [address] [place], [address] VBG pH 7.35 Normal 7.32-7.42 [facility] Comment on above: Performed By: #### L 9000.0810 ####[facility] [address] [place], [address] VBG PO2 159 mmHg High 25-40 [facility] Comment on above: Performed By: #### L 9000.0810 ####[facility] [address] [place], [address] VBG SO2 99 High 50-70 [facility] Comment on above: Performed By: #### L 9000.0810 ####[facility] [address] [place], [address] BNP,B-Type NATRIURETIC PEPTI Christa 02-29-2024 Natriuretic peptide B (Bld) [Mass/Vol] 312.0 pg/mL High 0-100 [facility] Comment on above: Performed By: #### L 503.6620, L500.2500 ####[facility] [address] [place], [address] Basic Metabolic Profile (BMP )on 02-29-2024 BUN/CRE 40.5 RATIO High 10-20 [facility] Comment on above: Performed By: #### L 503.6620, L500.2500 ####[facility] [address] [place], [address] CA,Total 8.4 mg/dL Low 8.5-10.1 [facility] Comment on above: Performed By: #### L 503.6620, L500.2500 ####[facility] [address] [place], [address] Chloride [Moles/Vol] 102 mmol/L Normal 98-107 [facility] Comment on above: Performed By: #### L 503.6619, L500.2500 ####[facility] [address] [place], [address] CO2 [Moles/Vol] 39.0 mmol/L High 21.0-32.0 [facility] Comment on above: Performed By: #### L 503.6620, L500.2500 ####[facility] [address] [place], [address] Creatinine [Mass/Vol] 0.62 mg/dL Normal 0.55-1.02 [facility] Comment on above: Result Comment: The validity of the calculated GFR GFRAA in patients over70 years has not been determined. Clinical correlation isessential. Performed By: #### L 503.6620, L500.2500 ####[facility] [address] [place], [address] ECRCL 149.86 ml/min Normal [facility] Comment on above: Performed By: #### L 503.6620, L500.2500 ####[facility] [address] [place], [address] EST GFR - AA 137 mL/min Normal >60 [facility] Comment on above: Result Comment: Afri can Bahraini GFR Calc Performed By: #### L 503.6620, L500.2500 ####[facility] [address] [place], [address] GAP 1 Low 5-15 [facility] Comment on above: Performed By: #### L 503.6620, L500.2500 ####[facility] [address] [place], [address] GFR/1.73 sq M.predicted among non-blacks MDRD (S/P/Bld) [Vol rate/Area] 113 mL/min/{1.73_m2} Normal >60 [facility] Comment on above: Result Comment: Non- GFR Calc Performed By: #### L 503.6620, L500.2500 ####[facility] [address] [place], [address] Glucose [Mass/Vol] 89 mg/dL Normal 74-106 [facility] Comment on above: Performed By: #### L 503.6620, L500.2500 ####[facility] [address] [place], [address] Potassium [Moles/Vol] 4.2 mmol/L Normal 3.5-5.1 [facility] Comment on above: Performed By: #### L 503.6620, L500.2500 ####[facility] [address] [place], [address] Sodium [Moles/Vol] 142 mmol/L Normal 136-145 [facility] Comment on above: Performed By: #### L 503.6620, L500.2500 ####[facility] [address] [place], [address] Urea nitrogen [Mass/Vol] 25 mg/dL High 7-18 [facility] Comment on above: Performed By: #### L 503.6620, L500.2500 ####[facility] [address] [place], [address] BNP,B-Type NATRIURETIC PEPTI Christa 02-28-2024 Natriuretic peptide B (Bld) [Mass/Vol] 429.2 pg/mL High 0-100 [facility] Comment on above: Performed By: #### L 503.6620, L500.2500, L100.0500 ####[facility] [address] [place], [address] Basic Metabolic Profile (BMP )on 02-28-2024 BUN/CRE 42.7 RATIO High 10-20 [facility] Comment on above: Performed By: #### L 503.6620, L500.2500, L100.0500 ####[facility] [address] [place], [address] CA,Total 8.3 mg/dL Low 8.5-10.1 [facility] Comment on above: Performed By: #### L 503.6620, L500.2500, L100.0500 ####[facility] [address] [place], [address] Chloride [Moles/Vol] 103 mmol/L Normal 98-107 [facility] Comment on above: Performed By: #### L 503.6620, L500.2500, L100.0500 ####[facility] [address] [place], [address] CO2 [Moles/Vol] 39.0 mmol/L High 21.0-32.0 [facility] Comment on above: Performed By: #### L 503.6620, L500.2500, L100.0500 ####[facility] [address] [place], [address] Creatinine [Mass/Vol] 0.68 mg/dL Normal 0.55-1.02 [facility] Comment on above: Result Comment: The validity of the calculated GFR GFRAA in patients over70 years has not been determined. Clinical correlation isessential. Performed By: #### L 503.6620, L500.2500, L100.0500 ####[facility] [address] [place], [address] ECRCL 136.43 ml/min Normal [facility] Comment on above: Performed By: #### L 503.6620, L500.2500, L100.0500 ####[facility] [address] [place], [address] EST GFR - AA 122 mL/min Normal >60 [facility] Comment on above: Result Comment: Afri can Bahraini GFR Calc Performed By: #### L 503.6620, L500.2500, L100.0500 ####[facility] [address] [place], [address] GAP 2 Low 5-15 [facility] Comment on above: Performed By: #### L 503.6620, L500.2500, L100.0500 ####[facility] [address] [place], [address] GFR/1.73 sq M.predicted among non-blacks MDRD (S/P/Bld) [Vol rate/Area] 101 mL/min/{1.73_m2} Normal >60 [facility] Comment on above: Result Comment: Non- GFR Calc Performed By: #### L 503.6620, L500.2500, L100.0500 ####[facility] [address] [place], [address] Glucose [Mass/Vol] 93 mg/dL Normal 74-106 [facility] Comment on above: Performed By: #### L 503.6620, L500.2500, L100.0500 ####[facility] [address] [place], [address] Potassium [Moles/Vol] 4.1 mmol/L Normal 3.5-5.1 [facility] Comment on above: Performed By: #### L 503.6620, L500.2500, L100.0500 ####[facility] [address] [place], [address] Sodium [Moles/Vol] 144 mmol/L Normal 136-145 [facility] Comment on above: Performed By: #### L 503.6620, L500.2500, L100.0500 ####[facility] [address] [place], [address] Urea nitrogen [Mass/Vol] 29 mg/dL High 7-18 [facility] Comment on above: Performed By: #### L 503.6620, L500.2500, L100.0500 ####[facility] [address] [place], [address] CBC-Complete Blood Cnt No Di ffon 02-28-2024 Erythrocyte distribution width (RBC) [Ratio] 13.2 % Normal 11.6-14.6 [facility] Comment on above: Performed By: #### L 503.6620, L500.2500, L100.0500 ####[facility] [address] [place], [address] Hematocrit (Bld) [Volume fraction] 35.3 % Low 37-47 [facility] Comment on above: Performed By: #### L 503.6620, L500.2500, L100.0500 ####[facility] [address] [place], [address] Hemoglobin (Bld) [Mass/Vol] 10.5 g/dL Low 12.0-15.0 [facility] Comment on above: Performed By: #### L 503.6620, L500.2500, L100.0500 ####[facility] [address] [place], [address] MCH (RBC) [Entitic mass] 31.3 pg Normal 27.0-32.0 [facility] Comment on above: Performed By: #### L 503.6620, L500.2500, L100.0500 ####[facility] [address] [place], [address] MCHC (RBC) [Mass/Vol] 29.7 g/dL Low 32-36 [facility] Comment on above: Performed By: #### L 503.6620, L500.2500, L100.0500 ####[facility] [address] [place], [address] MCV (RBC) [Entitic vol] 105.4 fL High 81-99 [facility] Comment on above: Performed By: #### L 503.6620, L500.2500, L100.0500 ####[facility] [address] [place], [address] Platelet mean volume (Bld) [Entitic vol] 11.6 fL Normal 6.2-12.0 [facility] Comment on above: Performed By: #### L 503.6620, L500.2500, L100.0500 ####[facility] [address] [place], [address] Platelets (Bld) [#/Vol] 149 10*3/uL Low 150-450 [facility] Comment on above: Performed By: #### L 503.6620, L500.2500, L100.0500 ####[facility] [address] [place], [address] RBC (Bld) [#/Vol] 3.35 10*6/uL Low 4.2-5.4 [facility] Comment on above: Performed By: #### L 503.6620, L500.2500, L100.0500 ####[facility] [address] [place], [address] RDW SD 50.5 fl High 35.1-43.9 [facility] Comment on above: Performed By: #### L 503.6620, L500.2500, L100.0500 ####[facility] [address] [place], [address] WBC (Bld) [#/Vol] 12.9 10*3/uL High 4.4-11.0 [facility] Comment on above: Performed By: #### L 503.6620, L500.2500, L100.0500 ####[facility] [address] [place], [address] .Auto Diffon 02-27-2024 Basophil, Absolute 0.0 10 3/mcL Normal 0.0-0.2 [facility] Comment on above: Performed By: #### M DW, CBC, ANEU, GFR, PBNP, BMP, TROPHS, MG, ADIFF #### [address] [address] Basophils/100 WBC (Bld) 0.3 % Normal 0.0-2.5 [facility] Comment on above: Performed By: #### M DW, CBC, ANEU, GFR, PBNP, BMP, TROPHS, MG, ADIFF #### [address] [address] Eosinophil, Absolute 0.4 10 3/mcL Normal 0.0-0.7 [facility] Comment on above: Performed By: #### M DW, CBC, ANEU, GFR, PBNP, BMP, TROPHS, MG, ADIFF #### [address] [address] Eosinophils/100 WBC (Bld) 2.9 % Normal 0.0-7.0 [facility] Comment on above: Performed By: #### M DW, CBC, ANEU, GFR, PBNP, BMP, TROPHS, MG, ADIFF #### [address] [address] Lymphocyte, Absolute 2.3 10 3/mcL Normal 0.9-4.3 [facility] Comment on above: Performed By: #### M DW, CBC, ANEU, GFR, PBNP, BMP, TROPHS, MG, ADIFF #### [address] [address] Lymphocytes/100 WBC (Bld) 15.1 % Low 20.0-40.0 [facility] Comment on above: Performed By: #### M DW, CBC, ANEU, GFR, PBNP, BMP, TROPHS, MG, ADIFF #### [address] [address] Monocyte, Absolute 1.5 10 3/mcL High 0.1-1.4 [facility] Comment on above: Performed By: #### M DW, CBC, ANEU, GFR, PBNP, BMP, TROPHS, MG, ADIFF #### [address] [address] Monocytes/100 WBC (Bld) 10.0 % Normal 2.0-13.0 [facility] Comment on above: Performed By: #### M DW, CBC, ANEU, GFR, PBNP, BMP, TROPHS, MG, ADIFF #### [address] [place], [place] [address] Neutrophils/100 WBC (Bld) 71.5 % Normal 50.0-75.0 [facility] Comment on above: Performed By: #### M DW, CBC, ANEU, GFR, PBNP, BMP, TROPHS, MG, ADIFF #### [address] [place], [place] [address] .GFRon 02-27-2024 GFR Non- 64 ml/min/1.73sqm Normal [facility] Comment on above: Result Comment: GFR [...] 15 mL/min/1.73 square meters Performed By: #### M DW, CBC, ANEU, GFR, PBNP, BMP, TROPHS, MG, ADIFF #### [address] [place], [place] [address] GFR 78 ml/min/1.73sqm Normal [facility] Comment on above: Result Comment: GFR [...] 15 mL/min/1.73 square meters Performed By: #### M DW, CBC, ANEU, GFR, PBNP, BMP, TROPHS, MG, ADIFF #### [address] [address] .MDWon 02-27-2024 Monocyte Distribution Width Not performed Normal 0.00-20.00 [facility] Comment on above: Result Comment: MDW testing unable to be performed on [id number] instrumentation. Performed By: #### M DW, CBC, ANEU, GFR, PBNP, BMP, TROPHS, MG, ADIFF #### [address] [address] .NEUABSon 02-27-2024 Neutrophil, Absolute 11.0 10 3/mcL High 2.3-8.1 [facility] Comment on above: Performed By: #### M DW, CBC, ANEU, GFR, PBNP, BMP, TROPHS, MG, ADIFF #### [address] [address] BMPon 02-27-2024 BUN/Creatinine Ratio 39 ratio High 7-27 [facility] Comment on above: Performed By: #### M DW, CBC, ANEU, GFR, PBNP, BMP, TROPHS, MG, ADIFF #### [address] [address] Calcium [Mass/Vol] 8.7 mg/dL Normal 8.4-10.2 [facility] Comment on above: Performed By: #### M DW, CBC, ANEU, GFR, PBNP, BMP, TROPHS, MG, ADIFF #### [address] [address] Chloride [Moles/Vol] 101 mmol/L Normal 98-107 [facility] Comment on above: Performed By: #### M DW, CBC, ANEU, GFR, PBNP, BMP, TROPHS, MG, ADIFF #### [address] [address] CO2 [Moles/Vol] 39 mmol/L High 22-29 [facility] Comment on above: Performed By: #### M DW, CBC, ANEU, GFR, PBNP, BMP, TROPHS, MG, ADIFF #### [address] [address] Creatinine [Mass/Vol] 0.96 mg/dL Normal 0.55-1.02 [facility] Comment on above: Result Comment: Test ing performed on Siemens Dimension EXL analyzer using a modified kinetic Melanie technique. Performed By: #### M DW, CBC, ANEU, GFR, PBNP, BMP, TROPHS, MG, ADIFF #### [address] [address] Electrolyte Balance 4.0 mEq/L Normal 4.0-15.0 [facility] Comment on above: Performed By: #### M DW, CBC, ANEU, GFR, PBNP, BMP, TROPHS, MG, ADIFF #### [address] [address] Glucose [Mass/Vol] 100 mg/dL Normal 70-105 [facility] Comment on above: Performed By: #### M DW, CBC, ANEU, GFR, PBNP, BMP, TROPHS, MG, ADIFF #### [address] [address] Potassium [Moles/Vol] 4.8 mmol/L Normal 3.5-5.1 [facility] Comment on above: Performed By: #### M DW, CBC, ANEU, GFR, PBNP, BMP, TROPHS, MG, ADIFF #### [address] [address] Sodium [Moles/Vol] 144 mmol/L Normal 136-145 [facility] Comment on above: Performed By: #### M DW, CBC, ANEU, GFR, PBNP, BMP, TROPHS, MG, ADIFF #### [address] [address] Urea nitrogen [Mass/Vol] 37 mg/dL High 7-18 [facility] Comment on above: Performed By: #### M DW, CBC, ANEU, GFR, PBNP, BMP, TROPHS, MG, ADIFF #### [address] [address] CBCon 02-27-2024 Erythrocyte distribution width (RBC) [Ratio] 13.0 % Normal 11.5-15.5 [facility] Comment on above: Performed By: #### M DW, CBC, ANEU, GFR, PBNP, BMP, TROPHS, MG, ADIFF #### [place] [address] Hematocrit (Bld) [Volume fraction] 37.9 % Normal 34.0-46.0 [facility] Comment on above: Performed By: #### M DW, CBC, ANEU, GFR, PBNP, BMP, TROPHS, MG, ADIFF #### [address] [address] Hgb 12.1 G/dL Normal 12.0-16.0 [facility] Comment on above: Performed By: #### M DW, CBC, ANEU, GFR, PBNP, BMP, TROPHS, MG, ADIFF #### [address] [address] MCH (RBC) [Entitic mass] 32.0 pg Normal 27.0-33.0 [facility] Comment on above: Performed By: #### M DW, CBC, ANEU, GFR, PBNP, BMP, TROPHS, MG, ADIFF #### [address] [address] MCHC 32.0 G/dL Normal 32.0-36.0 [facility] Comment on above: Performed By: #### M DW, CBC, ANEU, GFR, PBNP, BMP, TROPHS, MG, ADIFF #### [address] [address] MCV (RBC) [Entitic vol] 100.1 fL High 80.0-99.0 A [facility] Comment on above: Performed By: #### M DW, CBC, ANEU, GFR, PBNP, BMP, TROPHS, MG, ADIFF #### [address] [address] Platelet 169 10 3/mcL Normal 150-450 [facility] Comment on above: Performed By: #### M DW, CBC, ANEU, GFR, PBNP, BMP, TROPHS, MG, ADIFF #### [address] [address] Platelet mean volume (Bld) [Entitic vol] 8.9 fL Normal 6.6-10.5 [facility] Comment on above: Performed By: #### M DW, CBC, ANEU, GFR, PBNP, BMP, TROPHS, MG, ADIFF #### [address] [place], [place] [address] RBC 3.79 10 6/mcL Low 4.10-5.30 [facility] Comment on above: Performed By: #### M DW, CBC, ANEU, GFR, PBNP, BMP, TROPHS, MG, ADIFF #### [address] [address] WBC 15.4 10 3/mcL High 4.5-10.8 [facility] Comment on above: Performed By: #### M DW, CBC, ANEU, GFR, PBNP, BMP, TROPHS, MG, ADIFF #### [address] [address] H AND P Exam - Hospitaliston 02-27-2024 H&P Exam - Hospitalist Normal [facility] LABORATORYOrdered By: SYSTEM SYSTEM on 02-27-2024 Troponin I.cardiac DL <= 0.01 ng/mL [Mass/Vol] 90 ng/L High 0 - 51 ng/L AO ADM SS Comment on above: Interpretive Data: H igh Sensitive Troponin I Reference Ranges: Female: 0-51 ng/L Male: 0-76 ng/L Testing performed on MR Presta using a homogeneous sandwich chemiluminescent immunoassay based on Yummly technology. Basophils (Bld) [#/Vol] 0.0 103/mcL Normal [...] Workflow SS Natriuretic peptide.B prohormone N-Terminal [Mass/Vol] [address] pg/mL High 0 - 125 pg/mL AO [...] ng/L Male: 0-76 ng/L Testing performed on MR Presta using a homogeneous sandwich chemiluminescent immunoassay based on Yummly technology. Urea nitrogen [Mass/Vol] 37 mg/dL High [...] MDW testing unable to be performed on [id number] instrumentation. PBNPon 02-27-2024 Natriuretic peptide B (Bld) [Mass/Vol] [address] pg/mL High 0-125 [facility] Comment on above: Result Comment: NT-p roBNP results of less than 300 pg/mL effectively rules out acute congestive heart failure with 99% negative predictive value. Performed By: #### M DW, CBC, ANEU, GFR, PBNP, BMP, TROPHS, MG, ADIFF #### [address] [place], [place] [address] TROPHSon 02-27-2024 High Sensitivity Troponin I 90 ng/L High [address] Comment on above: Result Comment: High Sensitive Troponin I Reference Ranges: Female: 0-51 ng/L Male: 0-76 ng/L Testing performed on Dimension EXL using a homogeneous sandwich chemiluminescent immunoassay based on Yummly technology. Performed By: #### M DW, CBC, ANEU, GFR, PBNP, BMP, TROPHS, MG, ADIFF #### [address] [place], [place] [address] High Sensitivity Troponin I 87 ng/L High [address] Comment on above: Result Comment: High Sensitive Troponin I Reference Ranges: Female: 0-51 ng/L Male: 0-76 ng/L Testing performed on Dimension EXL using a homogeneous sandwich chemiluminescent immunoassay based on Yummly technology. Performed By: #### M DW, CBC, ANEU, GFR, PBNP, BMP, TROPHS, MG, ADIFF #### [address] [place], [place] [address] XR CHEST 1 VIEWon 02-27-2024 XR CHEST [...] 02/27/2024 3:05:24 AM Ordering Provider: JAMILA DARDEN Normal [facility] Basic Metabolic Profile (BMP )on 02-26-2024 BUN/CRE 40.2 RATIO High 10-20 [facility] Comment on above: Performed By: #### L 100.0500, L500.2500, L300.3900 ####[facility] [address] [place], [address] CA,Total 8.8 mg/dL Normal 8.5-10.1 [facility] Comment on above: Performed By: #### L 100.0500, L500.2500, L300.3900 ####[facility] [address] [place], [address] Chloride [Moles/Vol] 104 mmol/L Normal 98-107 [facility] Comment on above: Performed By: #### L 100.0500, L500.2500, L300.3900 ####[facility] [address] [place], [address] CO2 [Moles/Vol] 33.0 mmol/L High 21.0-32.0 [facility] Comment on above: Performed By: #### L 100.0500, L500.2500, L300.3900 ####[facility] [address] [place], [address] Creatinine [Mass/Vol] 0.75 mg/dL Normal 0.55-1.02 [facility] Comment on above: Result Comment: The validity of the calculated GFR GFRAA in patients over70 years has not been determined. Clinical correlation isessential. Performed By: #### L 100.0500, L500.2500, L300.3900 ####[facility] [address] [place], [address] ECRCL 123.70 ml/min Normal [facility] Comment on above: Performed By: #### L 100.0500, L500.2500, L300.3900 ####[facility] [address] [place], [address] EST GFR - AA 110 mL/min Normal >60 [facility] Comment on above: Result Comment: Afri can Bahraini GFR Calc Performed By: #### L 100.0500, L500.2500, L300.3900 ####[facility] [address] [place], [address] GAP 3 Low 5-15 [facility] Comment on above: Performed By: #### L 100.0500, L500.2500, L300.3900 ####[facility] [address] [place], [address] GFR/1.73 sq M.predicted among non-blacks MDRD (S/P/Bld) [Vol rate/Area] 91 mL/min/{1.73_m2} Normal >60 [facility] Comment on above: Result Comment: Non- GFR Calc Performed By: #### L 100.0500, L500.2500, L300.3900 ####[facility] [address] [place], [address] Glucose [Mass/Vol] 152 mg/dL High 74-106 [facility] Comment on above: Result Comment: Fast ing Glucose result greater than or equal to 126 mg/dLsuggests DIABETES MELLITUS per A.D.A. criteria. Performed By: #### L 100.0500, L500.2500, L300.3900 ####[facility] [address] [place], [address] Potassium [Moles/Vol] 4.2 mmol/L Normal 3.5-5.1 [facility] Comment on above: Performed By: #### L 100.0500, L500.2500, L300.3900 ####[facility] [address] [place], [address] Sodium [Moles/Vol] 140 mmol/L Normal 136-145 [facility] Comment on above: Performed By: #### L 100.0500, L500.2500, L300.3900 ####[facility] [address] [place], [address] Urea nitrogen [Mass/Vol] 30 mg/dL High 7-18 [facility] Comment on above: Performed By: #### L 100.0500, L500.2500, L300.3900 ####[facility] [address] [place], [address] CBC-Complete Blood Cnt No Di ffon 02-26-2024 Erythrocyte distribution width (RBC) [Ratio] 13.1 % Normal 11.6-14.6 [facility] Comment on above: Performed By: #### L 100.0500, L500.2500, L300.3900 ####[facility] [address] [place], [address] Hematocrit (Bld) [Volume fraction] 37.4 % Normal 37-47 [facility] Comment on above: Performed By: #### L 100.0500, L500.2500, L300.3900 ####[facility] [address] [place], [address] Hemoglobin (Bld) [Mass/Vol] 11.0 g/dL Low 12.0-15.0 [facility] Comment on above: Performed By: #### L 100.0500, L500.2500, L300.3900 ####[facility] [address] [place], [address] MCH (RBC) [Entitic mass] 31.3 pg Normal 27.0-32.0 [facility] Comment on above: Performed By: #### L 100.0500, L500.2500, L300.3900 ####[facility] [address] [place], [address] MCHC (RBC) [Mass/Vol] 29.4 g/dL Low 32-36 [facility] Comment on above: Performed By: #### L 100.0500, L500.2500, L300.3900 ####[facility] [address] [place], [address] MCV (RBC) [Entitic vol] 106.3 fL High 81-99 [facility] Comment on above: Performed By: #### L 100.0500, L500.2500, L300.3900 ####[facility] [address] [place], [address] Platelet mean volume (Bld) [Entitic vol] 11.2 fL Normal 6.2-12.0 [facility] Comment on above: Performed By: #### L 100.0500, L500.2500, L300.3900 ####[facility] [address] [place], [address] Platelets (Bld) [#/Vol] 126 10*3/uL Low 150-450 [facility] Comment on above: Performed By: #### L 100.0500, L500.2500, L300.3900 ####[facility] [address] [place], [address] RBC (Bld) [#/Vol] 3.52 10*6/uL Low 4.2-5.4 [facility] Comment on above: Performed By: #### L 100.0500, L500.2500, L300.3900 ####[facility] [address] [place], [address] RDW SD 50.9 fl High 35.1-43.9 [facility] Comment on above: Performed By: #### L 100.0500, L500.2500, L300.3900 ####[facility] [address] [place], [address] WBC (Bld) [#/Vol] 12.7 10*3/uL High 4.4-11.0 [facility] Comment on above: Performed By: #### L 100.0500, L500.2500, L300.3900 ####[facility] [address] [place], [address] CRPon 02-26-2024 C-REACTIVE PROT 65.60 mg/L High 0.0-3.0 [facility] Comment on above: Result Comment: C-Re active Protein (CRP) provides useful information for thediagnosis, therapy and monitoring of inflammatory processesand associated diseases. For the evaluation of Relative Riskfor Cardiovascular Disease, a High Sensitivity CRP (HSCRP)should be ordered. Performed By: #### L 501.6710, L101.9900 ####[facility] [address] [place], [address] Erythrocyte Sed Rateon 02-25 SED RATE 25 mm/hr Normal 0-30 [facility] Comment on above: Performed By: #### L 501.6710, L101.9900 ####[facility] [address] [place], [address] Partial Thromboplast Timeon 02-26-2024 aPTT Coag (Bld) [Time] 28.8 s Normal 24.1-36.2 [facility] Comment on above: Order Comment: REDRA W. PREVIOUS SPECIMEN REJECTED DUE TOSPECIMEN BEING CLOTTED. 02/26/24 0744 Noemi Olivo Performed By: #### L 300.4310, L300.3900 ####[facility] [address] [place], [address] Prothrombin Time w/INRon INR Coag (PPP) [Relative time] 1.2 {INR} Normal [facility] Comment on above: Order Comment: REDRA W. PREVIOUS SPECIMEN REJECTED DUE TOSPECIMEN BEING CLOTTED. 02/26/2444 Noemi Olivo Performed By: #### L 300.4310, L300.3900 ####[facility] [address] [place], [address] PT Coag (PPP) [Time] 15.2 s High 11.7-14.9 [facility] Comment on above: Order Comment: STEPHEN Morgan. PREVIOUS SPECIMEN REJECTED DUE TOSPECIMEN BEING CLOTTED. 02/26/24 0744 Noemi Wan. Performed By: #### L 300.4310, L300.3900 ####[facility] [address] [place], [address] INR Normal [facility] Comment on above: Result Comment: This specimen has been REJECTED due to Laboratory criteria:Clotted.PHLEB STAFF has been notified of need of recollection.02/26/24 0743 Noemi Wan Performed By: #### L 100.0500, L500.2500, L300.3900 ####[facility] [address] [place], [address] PROTIME Normal 11.7-14.9 [facility] Comment on above: Result Comment: This specimen has been REJECTED due to Laboratory criteria:Clotted.PHLEB STAFF has been notified of need of recollection.02/26/24 0743 Noemi Wan Performed By: #### L 100.0500, L500.2500, L300.3900 ####[facility] [address] [place], [address] Shoulder min 2 Viewson 02-25 Shoulder min [address] [facility] 12 Lead EKGon 02-25-2024 12 Lead EKG Normal [facility] BNP,B-Type NATRIURETIC PEPTI Christa 02-25-2024 Natriuretic peptide B (Bld) [Mass/Vol] 1191.6 pg/mL High 0-100 [facility] Comment on above: Performed By: #### L 503.6620 ####[facility] [address] [place], [address] Basic Metabolic Profile (BMP )on 02-25-2024 BUN/CRE 38.2 RATIO High 10-20 [facility] Comment on above: Performed By: #### L 500.2500, L100.0100 ####[facility] [address] [place], [address] CA,Total 8.9 mg/dL Normal 8.5-10.1 [facility] Comment on above: Performed By: #### L 500.2500, L100.0100 ####[facility] [address] [place], [address] Chloride [Moles/Vol] 104 mmol/L Normal 98-107 [facility] Comment on above: Performed By: #### L 500.2500, L100.0100 ####[facility] [address] [place], [address] CO2 [Moles/Vol] 35.0 mmol/L High 21.0-32.0 [facility] Comment on above: Performed By: #### L 500.2500, L100.0100 ####[facility] [address] [place], [address] Creatinine [Mass/Vol] 1.00 mg/dL Normal 0.55-1.02 [facility] Comment on above: Result Comment: The validity of the calculated GFR GFRAA in patients over70 years has not been determined. Clinical correlation isessential. Performed By: #### L 500.2500, L100.0100 ####[facility] [address] [place], [address] ECRCL 92.78 ml/min Normal [facility] Comment on above: Performed By: #### L 500.2500, L100.0100 ####[facility] [address] [place], [address] EST GFR - AA 79 mL/min Normal >60 [facility] Comment on above: Result Comment: Afri can Bahraini GFR Calc Performed By: #### L 500.2500, L100.0100 ####[facility] [address] [place], [address] GAP 1 Low 5-15 [facility] Comment on above: Performed By: #### L 500.2500, L100.0100 ####[facility] [address] [place], [address] GFR/1.73 sq M.predicted among non-blacks MDRD (S/P/Bld) [Vol rate/Area] 65 mL/min/{1.73_m2} Normal >60 [facility] Comment on above: Result Comment: Non- GFR Calc Performed By: #### L 500.2500, L100.0100 ####[facility] [address] [place], [address] Glucose [Mass/Vol] 100 mg/dL Normal 74-106 [facility] Comment on above: Result Comment: Fast ing Glucose result from 100 to 125 mg/dLsuggests IMPAIRED HOMEOSTASIS per A.D.A. criteria. Performed By: #### L 500.2500, L100.0100 ####[facility] [address] [place], [address] Potassium [Moles/Vol] 5.0 mmol/L Normal 3.5-5.1 [facility] Comment on above: Result Comment: Mode rate Hemolysis, Result may be falsely increased. Performed By: #### L 500.2500, L100.0100 ####[facility] [address] [place], [address] Sodium [Moles/Vol] 140 mmol/L Normal 136-145 [facility] Comment on above: Performed By: #### L 500.2500, L100.0100 ####[facility] [address] [place], [address] Urea nitrogen [Mass/Vol] 38 mg/dL High 7-18 [facility] Comment on above: Performed By: #### L 500.2500, L100.0100 ####[facility] [address] [place], [address] CBC W/Diff, Automatedon 12-03 17-2023 Absolute Lymph 2.73 X10 3/uL Normal 0.83-4.51 [facility] Comment on above: Performed By: #### L 500.2500, L100.0100 ####[facility] [address] [place], [address] Absolute Neut 9.8 X10 3/uL High 2.0-7.7 [facility] Comment on above: Performed By: #### L 500.2500, L100.0100 ####[facility] [address] [place], [address] Basophils/100 WBC (Bld) 0.5 % Normal 0-1 [facility] Comment on above: Performed By: #### L 500.2500, L100.0100 ####[facility] [address] [place], [address] Eosinophils/100 WBC (Bld) 3.0 % Normal 0-5 [facility] Comment on above: Performed By: #### L 500.2500, L100.0100 ####[facility] [address] [place], [address] Erythrocyte distribution width (RBC) [Ratio] 13.2 % Normal 11.6-14.6 [facility] Comment on above: Performed By: #### L 500.2500, L100.0100 ####[facility] [address] [place], [address] Hematocrit (Bld) [Volume fraction] 36.7 % Low 37-47 [facility] Comment on above: Performed By: #### L 500.2500, L100.0100 ####[facility] [address] [place], [address] Hemoglobin (Bld) [Mass/Vol] 11.2 g/dL Low 12.0-15.0 [facility] Comment on above: Performed By: #### L 500.2500, L100.0100 ####[facility] [address] [place], [address] IG% 0.800 Normal 0.0-0.9 [facility] Comment on above: Result Comment: IG% - Immature Granulocytes (promyelocytes, myelocytes andmetamyelocytes) > 1% indicates that a LEFT SHIFT is Present. Performed By: #### L 500.2500, L100.0100 ####[facility] [address] [place], [address] Lymphocytes/100 WBC (Bld) 18.9 % Low 19-41 [facility] Comment on above: Performed By: #### L 500.2500, L100.0100 ####[facility] [address] [place], [address] MCH (RBC) [Entitic mass] 32.2 pg High 27.0-32.0 [facility] Comment on above: Performed By: #### L 500.2500, L100.0100 ####[facility] [address] [place], [address] MCHC (RBC) [Mass/Vol] 30.5 g/dL Low 32-36 [facility] Comment on above: Performed By: #### L 500.2500, L100.0100 ####[facility] [address] [place], [address] MCV (RBC) [Entitic vol] 105.5 fL High 81-99 [facility] Comment on above: Performed By: #### L 500.2500, L100.0100 ####[facility] [address] [place], [address] Monocytes/100 WBC (Bld) 9.0 % Normal 0-10 [facility] Comment on above: Performed By: #### L 500.2500, L100.0100 ####[facility] [address] [place], [address] Neutrophils/100 WBC (Bld) 67.8 % Normal 47-70 [facility] Comment on above: Performed By: #### L 500.2500, L100.0100 ####[facility] [address] [place], [address] Nucleated RBC (Bld) [#/Vol] 0.5 10*3/uL Normal 0-5 [facility] Comment on above: Performed By: #### L 500.2500, L100.0100 ####[facility] [address] [place], [address] Platelet mean volume (Bld) [Entitic vol] 11.4 fL Normal 6.2-12.0 [facility] Comment on above: Performed By: #### L 500.2500, L100.0100 ####[facility] [address] [place], [address] Platelets (Bld) [#/Vol] 143 10*3/uL Low 150-450 [facility] Comment on above: Performed By: #### L 500.2500, L100.0100 ####[facility] [address] [place], [address] RBC (Bld) [#/Vol] 3.48 10*6/uL Low 4.2-5.4 [facility] Comment on above: Performed By: #### L 500.2500, L100.0100 ####[facility] [address] [place], [address] RDW SD 50.6 fl High 35.1-43.9 [facility] Comment on above: Performed By: #### L 500.2500, L100.0100 ####[facility] [address] [place], [address] WBC (Bld) [#/Vol] 14.4 10*3/uL High 4.4-11.0 [facility] Comment on above: Performed By: #### L 500.2500, L100.0100 ####[facility] [address] [place], [address] Cardiac Cath Diagnosticon Cardiac Cath Diagnostic Normal [facility] Consultation - Cardiologyon 02-25-2024 Consultation - Cardiology Normal [facility] Partial Thromboplast Timeon 02-25-2024 aPTT Coag (Bld) [Time] 26.2 s Normal 24.1-36.2 [facility] Comment on above: Performed By: #### L 300.4310 ####[facility] [address] [place], [address] ,Urineon 02-25-2024 Beta HCG ( test) Ql (U) Negative Normal [facility] Comment on above: Result Comment: Very dilute urine specimens, as indicated by a low specificgravity, may not contain training representative levels of hCG.If is still suspected, a first morning urinespecimen should be collected 48 hours later and tested. Performed By: #### L 400.7600 ####[facility] [address] [place], [address] Urine Cultureon 02-25-2024 URC Culture exhibits no growth. Normal [facility] Comment on above: Performed By: #### M 100.2200 ####[facility] [address] [place], [address] 12 Lead EKGon 02-24-2024 12 Lead EKG Normal [facility] 12 Lead EKG Normal [facility] Basic Metabolic Profile (BMP )on 02-24-2024 BUN/CRE 25.0 RATIO High 10-20 [facility] Comment on above: Performed By: #### L 500.2500, L100.0100, L300.8000 ####[facility] [address] [place], [address] CA,Total 9.0 mg/dL Normal 8.5-10.1 [facility] Comment on above: Performed By: #### L 500.2500, L100.0100, L300.8000 ####[facility] [address] [place], [address] Chloride [Moles/Vol] 104 mmol/L Normal 98-107 [facility] Comment on above: Performed By: #### L 500.2500, L100.0100, L300.8000 ####[facility] [address] [place], [address] CO2 [Moles/Vol] 29.0 mmol/L Normal 21.0-32.0 [facility] Comment on above: Performed By: #### L 500.2500, L100.0100, L300.8000 ####[facility] [address] [place], [address] Creatinine [Mass/Vol] 1.56 mg/dL High 0.55-1.02 [facility] Comment on above: Result Comment: The validity of the calculated GFR GFRAA in patients over70 years has not been determined. Clinical correlation isessential. Performed By: #### L 500.2500, L100.0100, L300.8000 ####[facility] [address] [place], [address] EST GFR - AA 47 mL/min Low >60 [facility] Comment on above: Result Comment: Afri can Bahraini GFR Calc Performed By: #### L 500.2500, L100.0100, L300.8000 ####[facility] [address] [place], [address] GAP 5 Normal 5-15 [facility] Comment on above: Performed By: #### L 500.2500, L100.0100, L300.8000 ####[facility] [address] [place], [address] GFR/1.73 sq M.predicted among non-blacks MDRD (S/P/Bld) [Vol rate/Area] 39 mL/min/{1.73_m2} Low >60 [facility] Comment on above: Result Comment: Non- GFR Calc Performed By: #### L 500.2500, L100.0100, L300.8000 ####[facility] [address] [place], [address] Glucose [Mass/Vol] 127 mg/dL High 74-106 [facility] Comment on above: Result Comment: Fast ing Glucose result greater than or equal to 126 mg/dLsuggests DIABETES MELLITUS per A.D.A. criteria. Performed By: #### L 500.2500, L100.0100, L300.8000 ####[facility] [address] [place], [address] Potassium [Moles/Vol] 4.7 mmol/L Normal 3.5-5.1 [facility] Comment on above: Result Comment: Slig ht Hemolysis, Result may be falsely increased. Performed By: #### L 500.2500, L100.0100, L300.8000 ####[facility] [address] [place], [address] Sodium [Moles/Vol] 138 mmol/L Normal 136-145 [facility] Comment on above: Performed By: #### L 500.2500, L100.0100, L300.8000 ####[facility] [address] [place], [address] Urea nitrogen [Mass/Vol] 39 mg/dL High 7-18 [facility] Comment on above: Performed By: #### L 500.2500, L100.0100, L300.8000 ####[facility] [address] [place], [address] CBC W/Diff, Automatedon 12-1 Absolute Lymph 2.55 X10 3/uL Normal 0.83-4.51 [facility] Comment on above: Performed By: #### L 500.2500, L100.0100, L300.8000 ####[facility] [address] [place], [address] Absolute Neut 11.7 X10 3/uL High 2.0-7.7 [facility] Comment on above: Performed By: #### L 500.2500, L100.0100, L300.8000 ####[facility] [address] [place], [address] Basophils/100 WBC (Bld) 0.6 % Normal 0-1 [facility] Comment on above: Performed By: #### L 500.2500, L100.0100, L300.8000 ####[facility] [address] [place], [address] Eosinophils/100 WBC (Bld) 1.5 % Normal 0-5 [facility] Comment on above: Performed By: #### L 500.2500, L100.0100, L300.8000 ####[facility] [address] [place], [address] Erythrocyte distribution width (RBC) [Ratio] 13.1 % Normal 11.6-14.6 [facility] Comment on above: Performed By: #### L 500.2500, L100.0100, L300.8000 ####[facility] [address] [place], [address] Hematocrit (Bld) [Volume fraction] 37.8 % Normal 37-47 [facility] Comment on above: Performed By: #### L 500.2500, L100.0100, L300.8000 ####[facility] [address] [place], [address] Hemoglobin (Bld) [Mass/Vol] 11.6 g/dL Low 12.0-15.0 [facility] Comment on above: Performed By: #### L 500.2500, L100.0100, L300.8000 ####[facility] [address] [place], [address] IG% 0.900 Normal 0.0-0.9 [facility] Comment on above: Result Comment: IG% - Immature Granulocytes (promyelocytes, myelocytes andmetamyelocytes) > 1% indicates that a LEFT SHIFT is Present. Performed By: #### L 500.2500, L100.0100, L300.8000 ####[facility] [address] [place], [address] Lymphocytes/100 WBC (Bld) 15.7 % Low 19-41 [facility] Comment on above: Performed By: #### L 500.2500, L100.0100, L300.8000 ####[facility] [address] [place], [address] MCH (RBC) [Entitic mass] 32.1 pg High 27.0-32.0 [facility] Comment on above: Performed By: #### L 500.2500, L100.0100, L300.8000 ####[facility] [address] [place], [address] MCHC (RBC) [Mass/Vol] 30.7 g/dL Low 32-36 [facility] Comment on above: Performed By: #### L 500.2500, L100.0100, L300.8000 ####[facility] [address] [place], [address] MCV (RBC) [Entitic vol] 104.7 fL High 81-99 [facility] Comment on above: Performed By: #### L 500.2500, L100.0100, L300.8000 ####[facility] [address] [place], [address] Monocytes/100 WBC (Bld) 8.9 % Normal 0-10 [facility] Comment on above: Performed By: #### L 500.2500, L100.0100, L300.8000 ####[facility] [address] [place], [address] Neutrophils/100 WBC (Bld) 72.4 % High 47-70 [facility] Comment on above: Performed By: #### L 500.2500, L100.0100, L300.8000 ####[facility] [address] [place], [address] Nucleated RBC (Bld) [#/Vol] 0.4 10*3/uL Normal 0-5 [facility] Comment on above: Performed By: #### L 500.2500, L100.0100, L300.8000 ####[facility] [address] [place], [address] Platelet mean volume (Bld) [Entitic vol] 10.7 fL Normal 6.2-12.0 [facility] Comment on above: Performed By: #### L 500.2500, L100.0100, L300.8000 ####[facility] [address] [place], [address] Platelets (Bld) [#/Vol] 181 10*3/uL Normal 150-450 [facility] Comment on above: Performed By: #### L 500.2500, L100.0100, L300.8000 ####[facility] [address] [place], [address] RBC (Bld) [#/Vol] 3.61 10*6/uL Low 4.2-5.4 [facility] Comment on above: Performed By: #### L 500.2500, L100.0100, L300.8000 ####[facility] [address] [place], [address] RDW SD 49.3 fl High 35.1-43.9 [facility] Comment on above: Performed By: #### L 500.2500, L100.0100, L300.8000 ####[facility] [address] [place], [address] WBC (Bld) [#/Vol] 16.2 10*3/uL High 4.4-11.0 [facility] Comment on above: Performed By: #### L 500.2500, L100.0100, L300.8000 ####[facility] [address] [place], [address] CNPNon 02-24-2024 CNPN Telephone (INTMWS) SIA ABDUL ([id number]) 1980 F Date Time Provider Department 02/24/24 MARILEE THAKUR INTMWS During your visit today, we recorded the following information about you: Lillie Marshall RN 02/24/2024 8:19 AM Signed Clarence from [facility] calls and reports that he is [...] evaluated. Clarence agrees and voices understanding. 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 [...] 1 tablet by mouth once daily. - Mpoio-8-QQJ-EPA-Fish Oil 1,000 mg (120 mg-180 mg) cap [...] rhinitis [J (more content not included)... Normal [facility] Telephone (INTMWS) SIA ABDUL ([id number]) 1980 F Date Time Provider Department 02/24/24 MARILEE THAKUR INTMWS During your visit today, we recorded the following information about you: Pepper Walsh RN 02/24/2024 3:36 PM Signed Shobha, patient's caregiver from [facility] is calling to update PCP that patient is being admitted to [facility] for further evaluation of irregular pulse and [...] 1 tablet by mouth once daily. - Swcpp-0-NYX-EPA-Fish Oil 1,000 mg (120 mg-180 mg) cap [...] included)... Normal [facility] CTA Chest W/WO Contraston CTA Chest W/WO Contrast Normal [facility] Chest 1 View (Portable)on Chest 1 View (Portable) Normal [facility] D-Dimer Quantitative (DVT/PE )on 02-24-2024 D-DIMER QUANT 3.38 FEU/ug/m Invalid Interpretation Code 0.27-0.49 [facility] Comment on above: Result Comment: D-Di alexandrea ELEVATED (>0.49): Additional studies and clinicalassessments are indicated to conclude diagnosis of:Deep Vein Thrombosis (DVT) or Pulmonary Embolism (PE)CRITICAL VALUE CALLED TO DJNUMH24/17/24 1109 Renu Villatoro.RESULTS READ BACK BY SAME. Performed By: #### L 500.2500, L100.0100, L300.8000 ####[facility] [address] [place], [place], [address] Echo, Limited Studyon 2023 Echo, Limited Study Normal [facility] Emergency Department Summary on 02-24-2024 Emergency Department Summary Normal [facility] H AND P Exam - Hospitaliston 02-24-2024 H&P Exam - Hospitalist Normal [facility] Kidney and Bladderon 024 Kidney and Bladder Normal [facility] L501.4020on 02-24-2024 TROPONIN-I HS 179 pg/mL Invalid Interpretation Code 3.0-54.0 [facility] Comment on above: Order Comment: Comme nts: SPECIMEN #3'TROP' Serial specimen #1, #2 or #3: 3 Result Comment: Crit ical Result(s) Called at: 21:35:19 02/24/2024 by: TORRIE FOSTER. Results read back by same. Please Note: New Test Units and Gender Specific Reference Ranges. For more information see Policy Stat Procedure [place] High Sensitivity Troponin (TNIH) and attachments. Performed By: #### L 501.4020 ####[facility] [address] [place], [place], [address] TROPONIN-I HS 227 pg/mL Invalid Interpretation Code 3.0-54.0 [facility] Comment on above: Order Comment: Comme nts: SPECIMEN #2'TROP' Serial specimen #1, #2 or #3: 2 Result Comment: Crit ical Result(s) Called at: 18:22:28 02/24/2024 by: TORRIE TO DRU KAPOOR. Results read back by same. Please Note: New Test Units and Gender Specific Reference Ranges. For more information see Policy Stat Procedure [place] High Sensitivity Troponin (TNIH) and attachments. Performed By: #### L 501.4020 ####[facility] [address] [place], [address] TROPONIN-I HS 411 pg/mL Invalid Interpretation Code 3.0-54.0 [facility] Comment on above: Order Comment: 'TROP ' Serial specimen #1, #2 or #3: 1 Result Comment: Crit ical Result(s) Called at: 15:41:58 02/24/2024 by: TORRIE TO TABATHA BECK. Results read back by same. Please Note: New Test Units and Gender Specific Reference Ranges. For more information see Policy Stat Procedure [place] High Sensitivity Troponin (TNIH) and attachments. Performed By: #### L 503.6005, L501.4020 ####[facility] [address] [place], [address] Lactic Acidon 02-24-2024 Lactate [Moles/Vol] 1.0 mmol/L Normal 0.4-1.9 [facility] Comment on above: Order Comment: Y Performed By: #### L 503.6005, L501.4020 ####[facility] [address] [place], [address] Partial Thromboplast Timeon 02-24-2024 aPTT Coag (Bld) [Time] 26.8 s Normal 24.1-36.2 [facility] Comment on above: Performed By: #### L 300.4310, L300.3900 ####[facility] [address] [place], [address] Prothrombin Time w/INRon INR Coag (PPP) [Relative time] 1.2 {INR} Normal [facility] Comment on above: Performed By: #### L 300.4310, L300.3900 ####[facility] [address] [place], [address] PT Coag (PPP) [Time] 14.8 s Normal 11.7-14.9 [facility] Comment on above: Performed By: #### L 300.4310, L300.3900 ####[facility] [address] [place], [address] Shoulder min 2 Viewson 02-23 Shoulder min [address] [facility] Urinalysis, Completeon 02-23 AMORPHOUS 2+ Normal [facility] Comment on above: Order Comment: RASHID TER SPECIMEN Performed By: #### L 400.0001 ####[facility] [address] [place], [address] BACTERIA 3+ /hpf Normal None Seen [facility] Comment on above: Order Comment: RASHID TER SPECIMEN Performed By: #### L 400.0001 ####[facility] [address] [place], [address] EPI,SQUAMOUS 0-5 SEEN Normal 5-10 [facility] Comment on above: Order Comment: RASHID TER SPECIMEN Performed By: #### L 400.0001 ####[facility] [address] [place], [address] Mucus Ql (Urine sed) 1+ /hpf Normal [facility] Comment on above: Order Comment: RASHID TER SPECIMEN Performed By: #### L 400.0001 ####[facility] [address] [place], [address] CAST,HYALINE 10-25 SEEN Normal 0-5 [facility] Comment on above: Order Comment: RASHID TER SPECIMEN Performed By: #### L 400.0001 ####[facility] [address] [place], [address] WBC 0-5 SEEN Normal 0-5 [facility] Comment on above: Order Comment: RASHID TER SPECIMEN Performed By: #### L 400.0001 ####[facility] [address] [place], [address] RBC 0 SEEN Normal 0-5 [facility] Comment on above: Order Comment: RASHID TER SPECIMEN Performed By: #### L 400.0001 ####[facility] [address] [place], [address] CNPNon [facility] SIA ABDUL ([id number]) 1980 F Date Time Provider Department 02/23/24 MARILEE THAKUR INTMWS During your visit today, we recorded the following information about you: Pamela Singh LPN 02/23/2024 10:14 AM Signed Leia with [facility], PT calling. Pt out of the hospital last week and is in need of PT in home. Did re-evaluation and asking for verbal orders to continue PT in home. DX acute, chronic systolic heart failure and kidney injury. Please advise Leia with a verbal orders. JORDAN Boston Joy, APRN.[facility] 02/23/2024 11:37 AM Signed Ok with therapy order Thank you Mika Kaplan APRN.[facility] María Avila MA 02/23/2024 2:30 PM Signed Leia notified. Allergies As of Date: 02/23/2024 Noted Allergy Reaction BEE STING 02/28/2023 10 - Anaphylaxis DILANTIN (PHENYTOIN SODIUM EXTEND*01/28/2006 Date Reviewed: 02/16/2024 Reviewed by: Lacie Reyes LPN - Fully Assessed Reason for Visit: [facility], verbal order [Other] Prescriptions as of 02/23/2024 [...] 1 tablet by mouth once daily. - Dmdeu-0-ERE-EPA-Fish Oil 1,000 mg (120 mg-180 mg) cap [...] included)... Normal [facility] Basic Metabolic Profile (BMP )on 02-20-2024 BUN Normal 7-18 [facility] Comment on above: Result Comment: Canc elled via OM: Order cancelled - Patient discharged Performed By: #### L 500.2500 ####[facility] [address] [place], [address] BUN/CRE Normal 10-20 [facility] Comment on above: Result Comment: Canc elled via OM: Order cancelled - Patient discharged Performed By: #### L 500.2500 ####[facility] [address] [place], [address] CA,Total Normal 8.5-10.1 [facility] Comment on above: Result Comment: Canc elled via OM: Order cancelled - Patient discharged Performed By: #### L 500.2500 ####[facility] [address] [place], [address] CL Normal 98-107 [facility] Comment on above: Result Comment: Canc elled via OM: Order cancelled - Patient discharged Performed By: #### L 500.2500 ####[facility] [address] [place], [address] CO2 Normal 21.0-32.0 [facility] Comment on above: Result Comment: Canc elled via OM: Order cancelled - Patient discharged Performed By: #### L 500.2500 ####[facility] [address] [place], [address] CREAT,SERUM Normal 0.55-1.02 [facility] Comment on above: Result Comment: Canc elled via OM: Order cancelled - Patient discharged Performed By: #### L 500.2500 ####[facility] [address] [place], [address] EST GFR Normal >60 [facility] Comment on above: Result Comment: Canc elled via OM: Order cancelled - Patient discharged Performed By: #### L 500.2500 ####[facility] [address] [place], [address] EST GFR - AA Normal >60 [facility] Comment on above: Result Comment: Canc elled via OM: Order cancelled - Patient discharged Performed By: #### L 500.2500 ####[facility] [address] [place], [address] GAP Normal 5-15 [facility] Comment on above: Result Comment: Canc elled via OM: Order cancelled - Patient discharged Performed By: #### L 500.2500 ####[facility] [address] [place], [address] GLU Normal 74-106 [facility] Comment on above: Result Comment: Canc elled via OM: Order cancelled - Patient discharged Performed By: #### L 500.2500 ####[facility] [address] [place], [address] Potassium Normal 3.5-5.1 [facility] Comment on above: Result Comment: Canc elled via OM: Order cancelled - Patient discharged Performed By: #### L 500.2500 ####[facility] [address] [place], [address] Basic Metabolic Profile (BMP) Normal 136-145 [facility] Comment on above: Result Comment: Canc elled via OM: Order cancelled - Patient discharged Performed By: #### L 500.2500 ####[facility] [address] [place], [address] Basic Metabolic Profile (BMP )on 02-19-2024 BUN/CRE 88.1 RATIO High 10-20 [facility] Comment on above: Performed By: #### L 500.2500 ####[facility] [address] [place], [address] CA,Total 9.5 mg/dL Normal 8.5-10.1 [facility] Comment on above: Performed By: #### L 500.2500 ####[facility] [address] [place], [address] Chloride [Moles/Vol] 98 mmol/L Normal 98-107 [facility] Comment on above: Performed By: #### L 500.2500 ####[facility] [address] [place], [address] CO2 [Moles/Vol] 35.0 mmol/L High 21.0-32.0 [facility] Comment on above: Performed By: #### L 500.2500 ####[facility] [address] [place], [address] Creatinine [Mass/Vol] 1.35 mg/dL High 0.55-1.02 [facility] Comment on above: Result Comment: The validity of the calculated GFR GFRAA in patients over70 years has not been determined. Clinical correlation isessential. Performed By: #### L 500.2500 ####[facility] [address] [place], [address] ECRCL 69.14 ml/min Normal [facility] Comment on above: Performed By: #### L 500.2500 ####[facility] [address] [place], [address] EST GFR - AA 55 mL/min Low >60 [facility] Comment on above: Result Comment: Afri can Bahraini GFR Calc Performed By: #### L 500.2500 ####[facility] [address] [place], [address] GAP 5 Normal 5-15 [facility] Comment on above: Performed By: #### L 500.2500 ####[facility] [address] [place], [address] GFR/1.73 sq M.predicted among non-blacks MDRD (S/P/Bld) [Vol rate/Area] 46 mL/min/{1.73_m2} Low >60 [facility] Comment on above: Result Comment: Non- GFR Calc Performed By: #### L 500.2500 ####[facility] [address] [place], [address] Glucose [Mass/Vol] 127 mg/dL High 74-106 [facility] Comment on above: Result Comment: Fast ing Glucose result greater than or equal to 126 mg/dLsuggests DIABETES MELLITUS per A.D.A. criteria. Performed By: #### L 500.2500 ####[facility] [address] [place], [address] Potassium [Moles/Vol] 4.1 mmol/L Normal 3.5-5.1 [facility] Comment on above: Performed By: #### L 500.2500 ####[facility] [address] [place], [address] Sodium [Moles/Vol] 138 mmol/L Normal 136-145 [facility] Comment on above: Performed By: #### L 500.2500 ####[facility] [address] [place], [address] Urea nitrogen [Mass/Vol] 119 mg/dL Invalid Interpretation Code 7-18 [facility] Comment on above: Result Comment: Crit ical Result(s) Called at: 11:15:04 02/19/2024 by: Jean to Olivier Marks. Results read back by same. Performed By: #### L 500.2500 ####[facility] [address] [place], [address] Basic Metabolic Profile (BMP )on 02-18-2024 BUN/CRE 84.7 RATIO High 10-20 [facility] Comment on above: Performed By: #### L 100.0500, L500.2500 ####[facility] [address] [place], [address] CA,Total 8.3 mg/dL Low 8.5-10.1 [facility] Comment on above: Performed By: #### L 100.0500, L500.2500 ####[facility] [address] [place], [address] Chloride [Moles/Vol] 99 mmol/L Normal 98-107 [facility] Comment on above: Performed By: #### L 100.0500, L500.2500 ####[facility] [address] [place], [address] CO2 [Moles/Vol] 35.0 mmol/L High 21.0-32.0 [facility] Comment on above: Performed By: #### L 100.0500, L500.2500 ####[facility] [address] [place], [address] Creatinine [Mass/Vol] 1.57 mg/dL High 0.55-1.02 [facility] Comment on above: Result Comment: The validity of the calculated GFR GFRAA in patients over70 years has not been determined. Clinical correlation isessential. Performed By: #### L 100.0500, L500.2500 ####[facility] [address] [place], [address] ECRCL 59.45 ml/min Normal [facility] Comment on above: Performed By: #### L 100.0500, L500.2500 ####[facility] [address] [place], [address] EST GFR - AA 47 mL/min Low >60 [facility] Comment on above: Result Comment: Afri can Bahraini GFR Calc Performed By: #### L 100.0500, L500.2500 ####[facility] [address] [place], [address] GAP 5 Normal 5-15 [facility] Comment on above: Performed By: #### L 100.0500, L500.2500 ####[facility] [address] [place], [address] GFR/1.73 sq M.predicted among non-blacks MDRD (S/P/Bld) [Vol rate/Area] 39 mL/min/{1.73_m2} Low >60 [facility] Comment on above: Result Comment: Non- GFR Calc Performed By: #### L 100.0500, L500.2500 ####[facility] [address] [place], [address] Glucose [Mass/Vol] 106 mg/dL Normal 74-106 [facility] Comment on above: Result Comment: Fast ing Glucose result from 100 to 125 mg/dLsuggests IMPAIRED HOMEOSTASIS per A.D.A. criteria. Performed By: #### L 100.0500, L500.2500 ####[facility] [address] [place], [address] Potassium [Moles/Vol] 5.4 mmol/L High 3.5-5.1 [facility] Comment on above: Result Comment: Mode rate Hemolysis, Result may be falsely increased. Performed By: #### L 100.0500, L500.2500 ####[facility] [address] [place], [address] Sodium [Moles/Vol] 138 mmol/L Normal 136-145 [facility] Comment on above: Performed By: #### L 100.0500, L500.2500 ####[facility] [address] [place], [address] Urea nitrogen [Mass/Vol] 133 mg/dL Invalid Interpretation Code 7-18 [facility] Comment on above: Result Comment: Crit ical Result(s) Called at: 09:50:26 02/18/2024 by: Ihsan Hernandez. Results read back by same. Performed By: #### L 100.0500, L500.2500 ####[facility] [address] [place], [address] CBC W/Diff, Automatedon 02-07 PATH REV Reviewed Normal [facility] Comment on above: Result Comment: Neut rophilic leukocytosis.Macrocytic anemia.Sunday Keller M.D. 02/18/24 AMENDED REPORT 02/18/24 1357 PATH REV previously reported as: July Performed By: #### L 503.6620, L503.6005, L100.0100, L500.2500 ####[facility] [address] [place], [address] CBC-Complete Blood Cnt No Di ffon 02-18-2024 Erythrocyte distribution width (RBC) [Ratio] 13.6 % Normal 11.6-14.6 [facility] Comment on above: Performed By: #### L 100.0500, L500.2500 ####[facility] [address] [place], [address] Hematocrit (Bld) [Volume fraction] 31.6 % Low 37-47 [facility] Comment on above: Performed By: #### L 100.0500, L500.2500 ####[facility] [address] [place], [address] Hemoglobin (Bld) [Mass/Vol] 9.7 g/dL Low 12.0-15.0 [facility] Comment on above: Performed By: #### L 100.0500, L500.2500 ####[facility] [address] [place], [address] MCH (RBC) [Entitic mass] 31.4 pg Normal 27.0-32.0 [facility] Comment on above: Performed By: #### L 100.0500, L500.2500 ####[facility] [address] [place], [address] MCHC (RBC) [Mass/Vol] 30.7 g/dL Low 32-36 [facility] Comment on above: Performed By: #### L 100.0500, L500.2500 ####[facility] [address] [place], [address] MCV (RBC) [Entitic vol] 102.3 fL High 81-99 [facility] Comment on above: Performed By: #### L 100.0500, L500.2500 ####[facility] [address] [place], [address] Platelet mean volume (Bld) [Entitic vol] 10.6 fL Normal 6.2-12.0 [facility] Comment on above: Performed By: #### L 100.0500, L500.2500 ####[facility] [address] [place], [address] Platelets (Bld) [#/Vol] 181 10*3/uL Normal 150-450 [facility] Comment on above: Performed By: #### L 100.0500, L500.2500 ####[facility] [address] [place], [address] RBC (Bld) [#/Vol] 3.09 10*6/uL Low 4.2-5.4 [facility] Comment on above: Performed By: #### L 100.0500, L500.2500 ####[facility] [address] [place], [address] RDW SD 51.6 fl High 35.1-43.9 [facility] Comment on above: Performed By: #### L 100.0500, L500.2500 ####[facility] [address] [place], [address] WBC (Bld) [#/Vol] 11.4 10*3/uL High 4.4-11.0 [facility] Comment on above: Performed By: #### L 100.0500, L500.2500 ####[facility] [address] [place], [address] 12 Lead EKGon 02-17-2024 12 Lead EKG Normal [facility] BNP,B-Type NATRIURETIC PEPTI Christa 02-17-2024 Natriuretic peptide B (Bld) [Mass/Vol] 25.1 pg/mL Normal 0-100 [facility] Comment on above: Performed By: #### L 503.6620, L503.6005, L100.0100, L500.2500 ####[facility] [address] [place], [address] Basic Metabolic Profile (BMP )on 02-17-2024 BUN/CRE 73.4 RATIO High 10-20 [facility] Comment on above: Performed By: #### L 503.6620, L503.6005, L100.0100, L500.2500 ####[facility] [address] [place], [address] CA,Total 9.2 mg/dL Normal 8.5-10.1 [facility] Comment on above: Performed By: #### L 503.6620, L503.6005, L100.0100, L500.2500 ####[facility] [address] [place], [address] Chloride [Moles/Vol] 92 mmol/L Low 98-107 [facility] Comment on above: Performed By: #### L 503.6620, L503.6005, L100.0100, L500.2500 ####[facility] [address] [place], [address] CO2 [Moles/Vol] 37.0 mmol/L High 21.0-32.0 [facility] Comment on above: Performed By: #### L 503.6620, L503.6005, L100.0100, L500.2500 ####[facility] [address] [place], [address] Creatinine [Mass/Vol] 1.99 mg/dL High 0.55-1.02 [facility] Comment on above: Result Comment: The validity of the calculated GFR GFRAA in patients over70 years has not been determined. Clinical correlation isessential. Performed By: #### L 503.6620, L503.6005, L100.0100, L500.2500 ####[facility] [address] [place], [address] ECRCL 47.49 ml/min Normal [facility] Comment on above: Performed By: #### L 503.6620, L503.6005, L100.0100, L500.2500 ####[facility] [address] [place], [address] EST GFR - AA 35 mL/min Low >60 [facility] Comment on above: Result Comment: Afri can Bahraini GFR Calc Performed By: #### L 503.6620, L503.6005, L100.0100, L500.2500 ####[facility] [address] [place], [address] GAP 5 Normal 5-15 [facility] Comment on above: Performed By: #### L 503.6620, L503.6005, L100.0100, L500.2500 ####[facility] [address] [place], [address] GFR/1.73 sq M.predicted among non-blacks MDRD (S/P/Bld) [Vol rate/Area] 29 mL/min/{1.73_m2} Low >60 [facility] Comment on above: Result Comment: Non- GFR Calc Performed By: #### L 503.6620, L503.6005, L100.0100, L500.2500 ####[facility] [address] [place], [address] Glucose [Mass/Vol] 102 mg/dL Normal 74-106 [facility] Comment on above: Result Comment: Fast ing Glucose result from 100 to 125 mg/dLsuggests IMPAIRED HOMEOSTASIS per A.D.A. criteria. Performed By: #### L 503.6620, L503.6005, L100.0100, L500.2500 ####[facility] [address] [place], [address] Potassium [Moles/Vol] 4.9 mmol/L Normal 3.5-5.1 [facility] Comment on above: Performed By: #### L 503.6620, L503.6005, L100.0100, L500.2500 ####[facility] [address] [place], [address] Sodium [Moles/Vol] 134 mmol/L Low 136-145 [facility] Comment on above: Performed By: #### L 503.6620, L503.6005, L100.0100, L500.2500 ####[facility] [address] [place], [address] Urea nitrogen [Mass/Vol] 146 mg/dL Invalid Interpretation Code 7-18 [facility] Comment on above: Result Comment: Crit ical Result(s) Called at: 14:46:52 02/17/2024 by: Ihsan Sawyer Results read back by same. Performed By: #### L 503.6620, L503.6005, L100.0100, L500.2500 ####[facility] [address] [place], [address] Bedside Glucoseon 02-17-2024 FINGERSTICK GLU 112 mg/dL High 74-106 [facility] Comment on above: Result Comment: ETHAN PRITCHETT OF PATIENT CARE PER NURSING PROTOCOL Performed By: #### L 501.080 ####[facility] [address] [place], [address] Chest 1 View (Portable)on Chest 1 View (Portable) Normal [facility] Emergency Department Summary on 02-17-2024 Emergency Department Summary Normal [facility] H AND P Exam - Hospitaliston 02-17-2024 H&P Exam - Hospitalist Normal [facility] Lactic Acidon 02-17-2024 Lactate [Moles/Vol] 0.6 mmol/L Normal 0.4-1.9 [facility] Comment on above: Order Comment: Y Performed By: #### L 503.6620, L503.6005, L100.0100, L500.2500 ####[facility] [address] [place], [address] CNOVon 02-16-2024 CNOV Office Visit (INTMWS ) SIA ABDUL ([id number]) 1980 F Date Time Provider Department 02/16/24 3:00 PM MARILEE THAKUR INTMWS During your visit today, we recorded the following information about you: Pulse Blood pressure Weight 57/minute 78/58 131.1 kg Marilee Thakur MD 02/16/2024 5:50 PM Signed Reason for Visit Patient presents with: Recheck: Medication Rachellejacques Hanna Claflin is a 42 year old female who [...] included)... Normal [facility] CBC W Auto Differential pane l (Bld)on 02-13-2024 Basophils (Bld) [#/Vol] 0.05 10*3/uL Normal <0.11 [facility] Comment on above: Order Comment: Speci ricardo Type: BLOOD SPECIMEN Ordering Facility: [facility] Address: [address] [place] [address] Performed By: #### 5 7021-8 #### [facility] CLIA [id number] [address] [place] [address] [place] Basophils/100 WBC (Bld) 0.4 % Normal [facility] Comment on above: Order Comment: Speci men Type: BLOOD SPECIMEN Ordering Facility: [facility] Address: [address] [place] [address] Performed By: #### 5 7021-8 #### [facility] CLIA [id number] [address] [place] [address] [place] Differential cell count method Nom (Bld) Auto Normal [facility] Comment on above: Order Comment: Speci men Type: BLOOD SPECIMEN Ordering Facility: [facility] Address: [address] [place] [address] Performed By: #### 5 7021-8 #### [facility] CLIA [id number] [address] [place] [address] [place] Eosinophils (Bld) [#/Vol] 0.32 10*3/uL Normal <0.46 [facility] Comment on above: Order Comment: Speci men Type: BLOOD SPECIMEN Ordering Facility: [facility] Address: [address] [place] [address] Performed By: #### 5 7021-8 #### [facility] CLIA [id number] [address] [place] [address] [place] Eosinophils/100 WBC (Bld) 2.6 % Normal [facility] Comment on above: Order Comment: Speci men Type: BLOOD SPECIMEN Ordering Facility: [facility] Address: [address] [place] [address] Performed By: #### 5 7021-8 #### [facility] CLIA [id number] [address] [place] [address] [place] Erythrocyte distribution width (RBC) [Ratio] 13.5 % Normal 11.5-15.0 [facility] Comment on above: Order Comment: Speci men Type: BLOOD SPECIMEN Ordering Facility: [facility] Address: [address] [place] [address] Performed By: #### 5 7021-8 #### [facility] CLIA [id number] [address] [place] [address] [place] Hematocrit (Bld) [Volume fraction] 38.7 % Normal 36.0-46.0 [facility] Comment on above: Order Comment: Speci men Type: BLOOD SPECIMEN Ordering Facility: [facility] Address: [address] [place] [address] Performed By: #### 5 7021-8 #### [facility] CLIA [id number] [address] [place] [address] [place] Hemoglobin (Bld) [Mass/Vol] 12.1 g/dL Normal 11.5-15.5 [facility] Comment on above: Order Comment: Speci men Type: BLOOD SPECIMEN Ordering Facility: [facility] Address: [address] [place] [address] Performed By: #### 5 7021-8 #### [facility] CLIA [id number] [address] [place] [address] [place] Immature granulocytes (Bld) [#/Vol] 0.07 10*3/uL Normal <0.10 [facility] Comment on above: Order Comment: Speci men Type: BLOOD SPECIMEN Ordering Facility: [facility] Address: [address] [place] [address] Performed By: #### 5 7021-8 #### [facility] CLIA [id number] [address] [place] [address] [place] Immature granulocytes/100 WBC (Bld) 0.6 % Normal [facility] Comment on above: Order Comment: Speci men Type: BLOOD SPECIMEN Ordering Facility: [facility] Address: [address] [place] [address] Performed By: #### 5 7021-8 #### [facility] CLIA [id number] [address] [place] [address] [place] Lymphocytes (Bld) [#/Vol] 2.11 10*3/uL Normal 1.00-4.00 [facility] Comment on above: Order Comment: Speci men Type: BLOOD SPECIMEN Ordering Facility: [facility] Address: [address] [place] [address] Performed By: #### 5 7021-8 #### [facility] CLIA [id number] [address] [place] [address] [place] Lymphocytes/100 WBC (Bld) 17.3 % Normal [facility] Comment on above: Order Comment: Speci men Type: BLOOD SPECIMEN Ordering Facility: [facility] Address: [address] [place] [address] Performed By: #### 5 7021-8 #### [facility] CLIA [id number] [address] [place] [address] [place] [facility] (RBC) [Entitic mass] 32.2 pg Normal 26.0-34.0 [facility] Comment on above: Order Comment: Speci men Type: BLOOD SPECIMEN Ordering Facility: [facility] Address: [address] [place] [address] Performed By: #### 5 7021-8 #### [facility] CLIA [id number] [address] [place] [address] [place] MCHC (RBC) [Mass/Vol] 31.3 g/dL Normal 30.5-36.0 [facility] Comment on above: Order Comment: Speci men Type: BLOOD SPECIMEN Ordering Facility: [facility] Address: [address] [place] [address] Performed By: #### 5 7021-8 #### [facility] CLIA [id number] [address] [place] [address] [place] MCV (RBC) [Entitic vol] 102.9 fL High 80.0-100.0 [facility] Comment on above: Order Comment: Speci men Type: BLOOD SPECIMEN Ordering Facility: [facility] Address: [address] [place] [address] Performed By: #### 5 7021-8 #### [facility] CLIA [id number] [address] [place] [address] [place] Monocytes (Bld) [#/Vol] 1.39 10*3/uL High <0.87 [facility] Comment on above: Order Comment: Speci men Type: BLOOD SPECIMEN Ordering Facility: [facility] Address: [address] [id number] Performed By: #### 5 7021-8 #### [facility] CLIA [id number] [address] [place] [address] [place] Monocytes/100 WBC (Bld) 11.4 % Normal [facility] Comment on above: Order Comment: Speci men Type: BLOOD SPECIMEN Ordering Facility: [facility] Address: [address] [place] [address] Performed By: #### 5 7021-8 #### [facility] CLIA [id number] [address] [place] [address] [place] Neutrophils (Bld) [#/Vol] 8.25 10*3/uL High 1.45-7.50 [facility] Comment on above: Order Comment: Speci men Type: BLOOD SPECIMEN Ordering Facility: [facility] Address: [address] [place] [address] Performed By: #### 5 7021-8 #### [facility] CLIA [id number] [address] [place] [address] [place] Neutrophils/100 WBC (Bld) 67.7 % Normal [facility] Comment on above: Order Comment: Speci men Type: BLOOD SPECIMEN Ordering Facility: [facility] Address: [address] [place] [address] Performed By: #### 5 7021-8 #### [facility] CLIA [id number] [address] [place] [address] [place] Nucleated RBC (Bld) [#/Vol] 10*3/uL Normal <0.01 [facility] Comment on above: Order Comment: Speci men Type: BLOOD SPECIMEN Ordering Facility: [facility] Address: [address] [place], [place] [address] Performed By: #### 5 7021-8 #### [facility] CLIA [id number] [address] [place] [address] [place] Nucleated RBC/100 WBC (Bld) [Ratio] 0.0 /100 WBC Normal [facility] Comment on above: Order Comment: Speci men Type: BLOOD SPECIMEN Order[facility] Address: [address] [place] [address] Performed By: #### 5 7021-8 #### [facility] CLIA [id number] [address] [place] [address] [place] Platelet mean volume (Bld) [Entitic vol] 11.9 fL Normal 9.0-12.7 [facility] Comment on above: Order Comment: Speci men Type: BLOOD SPECIMEN [facility] Address: [address] [place] [address] Performed By: #### 5 7021-8 #### [facility] CLIA [id number] [address] [place] [address] [place] Platelets (Bld) [#/Vol] 207 10*3/uL Normal 150-400 [facility] Comment on above: Order Comment: Speci men Type: BLOOD SPECIMEN Ordering [facility] Address: [address] [place] [address] Performed By: #### 5 7021-8 #### [facility] CLIA [id number] [address] [place] [address] [place] RBC (Bld) [#/Vol] 3.76 10*6/uL Low 3.90-5.20 [facility] Comment on above: Order Comment: Speci men Type: BLOOD SPECIMEN Order[facility] Address: [address] [place] [address] Performed By: #### 5 7021-8 #### [facility] CLIA [id number] [address] [place] [address] [place] WBC (Bld) [#/Vol] 12.19 10*3/uL High 3.70-11.00 [facility] Comment on above: Order Comment: Speci men Type: BLOOD SPECIMEN [facility] Address: [address] [place] [address] Performed By: #### 5 7021-8 #### [facility] CLIA [id number] [address] [place] [address] [place] [facility] Comprehensive metabolic 2000 panelon 02-13-2024 Albumin [Mass/Vol] 4.2 g/dL Normal 3.9-4.9 [facility] Comment on above: Order Comment: Speci men Type: BLOOD SPECIMENOrdering Facility: [facility] Address: [address] [place] [address] Performed By: #### 1 9123-9, 69105-8 ####[facility] [id number] [place] [address] [place] ALP [Catalytic activity/Vol] 88 U/L Normal 34-123 [facility] Comment on above: Order Comment: Speci men Type: BLOOD SPECIMENOrdering Facility: [facility] Address: [address] [place] [address] Performed By: #### 1 9123-9, 21274-2 ####[facility] [id number] [place] [address] [place] ALT [Catalytic activity/Vol] 23 U/L Normal 7-38 [facility] Comment on above: Order Comment: Speci men Type: BLOOD SPECIMENOrdering Facility: [facility] Address: [address] [place] [address] Performed By: #### 1 9123-9, 75286-8 ####[facility] [id number] [place] [address] [place] Anion gap [Moles/Vol] 15 mmol/L Normal 8-15 [facility] Comment on above: Order Comment: Speci men Type: BLOOD SPECIMENOrdering Facility: [facility] Address: [address] [place] [address] Performed By: #### 1 9123-9, 76160-8 ####[facility] [id number] [place] [address] [place] AST [Catalytic activity/Vol] 23 U/L Normal 13-35 [facility] Comment on above: Order Comment: Speci men Type: BLOOD SPECIMENOrdering Facility: [facility] Address: [address] [place] [address] Performed By: #### 1 9123-9, ####[facility] [id number] [place] [address] [place] Bilirubin [Mass/Vol] 0.3 mg/dL Normal 0.2-1.3 [facility] Comment on above: Order Comment: Speci men Type: BLOOD SPECIMENOrdering Facility: [facility] Address: [address] [place] [address] Performed By: #### 1 9123-9, ####[facility] [id number] [place] [address] [place] Calcium [Mass/Vol] 9.1 mg/dL Normal 8.5-10.2 [facility] Comment on above: Order Comment: Speci men Type: BLOOD SPECIMENOrdering Facility: [facility] Address: [address] [place] [address] Performed By: #### 1 9123-9, ####[facility] [id number] [place] [address] [place] Chloride [Moles/Vol] 91 mmol/L Low 98-107 [facility] Comment on above: Order Comment: Speci men Type: BLOOD SPECIMENOrdering Facility: [facility] Address: [address] [place] [address] Performed By: #### 1 9123-9, ####[facility] [id number] [place] [address] [place] CO2 [Moles/Vol] 30 mmol/L Normal 22-30 [facility] Comment on above: Order Comment: Speci men Type: BLOOD SPECIMENOrdering Facility: [facility] Address: [address] [place] [address] Performed By: #### 1 9123-9, ####[facility] [id number] [place] [address] [place] Creatinine [Mass/Vol] 1.28 mg/dL High 0.58-0.96 [facility] Comment on above: Order Comment: Speci men Type: BLOOD SPECIMENOrdering Facility: [facility] Address: [address] [place] [address] Performed By: #### 1 9123-9, ####[facility] [id number] [place] [address] [place] Creatinine and Glomerular filtration rate.predicted panel (S/P/Bld) 54 mL/min/1.73m??? Low >=60 [facility] Comment on above: Order Comment: Speci men Type: BLOOD SPECIMENOrdering Facility: [facility] Address: [address] [place] [address] Result Comment: Roby mated Glomerular Filtration Rate [...] actual GFR. Performed By: #### 1 9123-9, ####[facility] [id number] [address] [id number] [place] Glucose [Mass/Vol] 96 mg/dL Normal 74-99 [facility] Comment on above: Order Comment: Seema silva Type: BLOOD SPECIMENOrdering Facility: [facility] Address: [address] [place] [address] Result Comment: The [place] Diabetes Association (ADA) provides guidance for cutoff [...] Standards of Medical Care in Diabetes 2016, [place] [employer]. Diabetes Care. 2016.39(Suppl 1). Performed By: #### 1 9123-9, 39185-7 ####[facility] [id number] [place] [address] [place] Potassium [Moles/Vol] 4.3 mmol/L Normal 3.7-5.1 [facility] Comment on above: Order Comment: Seema silva Type: BLOOD SPECIMENOrdering Facility: [facility] Address: [address] [place] [address] Performed By: #### 1 9123-9, 45730-9 ####[facility]IA [id number] [place] [address] [place] Protein [Mass/Vol] 7.2 g/dL Normal 6.3-8.0 [facility] Comment on above: Order Comment: Seeam silva Type: BLOOD SPECIMENOrdering Facility: [facility] Address: [address] [id number] Performed By: #### 1 9123-9, ####[facility] [id number] [place] [address] [place] Sodium [Moles/Vol] 136 mmol/L Normal 136-144 [facility] Comment on above: Order Comment: Speci men Type: BLOOD SPECIMENOrdering Facility: [facility] Address: [address] [place] [address] Performed By: #### 1 9123-9, 21361-4 ####[facility]IA [id number] [place] [address] [place] Urea nitrogen [Mass/Vol] 106 mg/dL High 7-21 [facility] Comment on above: Order Comment: Speci men Type: BLOOD SPECIMENOrdering Facility: [facility] Address: [address] [place] [address] Performed By: #### 1 9123-9, 49865-5 ####[facility] [id number] [place] [address] [place] Magnesium SerPl-mCncon 02-12 Magnesium [Mass/Vol] 2.9 mg/dL High 1.7-2.3 [facility] Comment on above: Order Comment: Speci men Type: BLOOD SPECIMENOrdering Facility: [facility] Address: [address] [place] [address] Performed By: #### 1 9123-9, 47694-6 ####[facility] [id number] [place] [address] [place] Tal 02-10-2024 [facility] Telephone (INTWS) SIA ABDUL ([id number]) 1980 F Date Time Provider Department 02/10/24 MARILEE THAKUR INTWS During your visit today, we recorded the following information about you: Pamela Singh LPN 02/10/2024 11:09 AM Signed Leia with [facility], PT calling to see if you will give verbal orders for PT to come in to the home after hospitalization. DX. weakness and difficulty getting around. Please advise Leia with Verbal order to follow and sign. Pamela Singh, Marilee Zambrano MD 02/10/2024 4:40 PM Signed Verbal ok for the same Regards, Aaliyah Almeida MD, MA 02/10/2024 4:45 PM Signed Elia notified and verbalized understanding. Aaliyah Gonzalez MA Allergies As of Date: 02/10/2024 Noted Allergy Reaction BEE STING 02/28/2023 10 - Anaphylaxis DILANTIN (PHENYTOIN SODIUM EXTEND*01/28/2006 Date Reviewed: 02/06/2024 Reviewed by: Isela Leyva LPN - Fully Assessed Reason for Visit: [facility]-verbal orders [Other] Prescriptions as of 02/10/2024 [...] 1 tablet by mouth once daily. - Vvekn-3-OFT-EPA-Fish Oil 1,000 mg (120 mg-180 mg) cap [...] included)... Normal [facility] CNOVon 02-06-2024 CNOV Office Visit (INTMWS ) SIA ABDUL ([id number]) 1980 F Date Time Provider Department 02/06/24 11:40 AM MARILEE THAKUR INTMWS During your visit today, we recorded the following information about you: Pulse Blood pressure Weight 65/minute 112/77 130.2 kg Marilee Thakur MD 02/06/2024 2:56 PM Signed Reason for Visit Patient presents with: Hospital F/U: [facility] 01/26/24 dx CHF Sia Abdul is a [...] calcifications. 02/06/24: She is here with her home care chaplain. 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 She is on toresemide, I [...] use: No (more content not included)... [facility] Telephone (INTMWS) SIA ABDUL ([id number]) 1980 F Date Time Provider Department 02/03/24 MARILEE THAKUR INTRahWS During your visit today, we recorded the following information about you: Lillie Marshall RN 02/03/2024 1:35 PM Signed Clarence from [facility] calls asking if provider will continue to sign orders for long term, physical therapy, and occupational therapy. RODRÍGUEZ Carnes Chitra, MD 02/03/2024 5:06 PM Signed Yes will sign Marilee Lassiter MD, Rachel L, MA 02/04/2024 8:56 AM Signed Clarence at [facility] notified. Aaliyah Gonzalez MA Allergies As [...] 1 tablet by mouth once daily. - Ocmbh-5-XGB-EPA-Fish Oil 1,000 mg (120 mg-180 mg) cap [...] included)... Normal [facility] Basic Metabolic Profile (BMP )on 01-27-2024 BUN Normal - [facility] Comment on above: Result Comment: Canc elled via OM: Order cancelled - Patient discharged Performed By: #### L 500.2500 ####[facility] [address] [place], [address] BUN/CRE Normal - [facility] Comment on above: Result Comment: Canc elled via OM: Order cancelled - Patient discharged Performed By: #### L 500.2500 ####[facility] [address] [place], [address] CA,Total Normal 8.5-10.1 [facility] Comment on above: Result Comment: Canc elled via OM: Order cancelled - Patient discharged Performed By: #### L 500.2500 ####[facility] [address] [place], [address] CL Normal 98-107 [facility] Comment on above: Result Comment: Canc elled via OM: Order cancelled - Patient discharged Performed By: #### L 500.2500 ####[facility] [address] [place], [address] CO2 Normal 21.0-32.0 [facility] Comment on above: Result Comment: Canc elled via OM: Order cancelled - Patient discharged Performed By: #### L 500.2500 ####[facility] [address] [place], [address] CREAT,SERUM Normal 0.55-1.02 [facility] Comment on above: Result Comment: Canc elled via OM: Order cancelled - Patient discharged Performed By: #### L 500.2500 ####[facility] [address] [place], [address] EST GFR Normal >60 [facility] Comment on above: Result Comment: Canc elled via OM: Order cancelled - Patient discharged Performed By: #### L 500.2500 ####[facility] [address] [place], [address] EST GFR - AA Normal >60 [facility] Comment on above: Result Comment: Canc elled via OM: Order cancelled - Patient discharged Performed By: #### L 500.2500 ####[facility] [address] [place], [address] GAP Normal 5-15 [facility] Comment on above: Result Comment: Canc elled via OM: Order cancelled - Patient discharged Performed By: #### L 500.2500 ####[facility] [address] [place], [address] GLU Normal 74-106 [facility] Comment on above: Result Comment: Canc elled via OM: Order cancelled - Patient discharged Performed By: #### L 500.2500 ####[facility] [address] [place], [address] Potassium Normal 3.5-5.1 [facility] Comment on above: Result Comment: Canc elled via OM: Order cancelled - Patient discharged Performed By: #### L 500.2500 ####[facility] [address] [place], [address] Basic Metabolic Profile (BMP) Normal 136-145 [facility] Comment on above: Result Comment: Canc elled via OM: Order cancelled - Patient discharged Performed By: #### L 500.2500 ####[facility] [address] [place], [place], [address] TRANSTHORACIC ECHO (TTE) [facility] 01-27-2024 TRANSTHORACIC ECHO (TTE) COMPLETE [facility] [address], [address], [place] [address] TRANSTHORACIC ECHOCARDIOGRAM REPORT Patient Name: SIA ABDUL Reading Physician: [id number] Goodman MD Study Date: 01/27/2024 Ordering Provider: [id number] GOODMAN MRN/PID: [id number] Fellow: Nurse: Date of /Age: 406/30/1980 / Clinical Quality Assurance Specialist: Rafia john KATY Gender assigned at F Additional Staff: : Height: 142.24 cm Admit Date: Weight: 133.36 kg Admission Status: Outpatient BSA / BMI: 2.09 m2 / 65.91 kg/m2 Blood Pressure: 109/74 mmHg Department Location: Study Type: TRANSTHORACIC ECHO (TTE) COMPLETE Diagnosis/ICD: Other forms of dyspnea-R06.09; Localized edema-R60.0 Indication: MARINO, Edema CPT Code: Echo Complete w Full Doppler-86789 Study Detail: The following Echo studies were [...] LA Area A2C: 21.1 cm2 LA Major Grover A4C: 6.4 cm LA Major Grover A2C: 6.4 cm RA VOLUME BY A/L [...] Dimensionless Index: 0.69 (more content not included)... [facility] US Heart Transthoracicon Aortic Valve Area by Continuity of Peak Velocity 1.65 cm2 [facility] Work Phone: [phone] Aortic Valve Area by Continuity of VTI 1.56 cm2 [facility] Work Phone: [phone] AV mn grad 9 mmHg [facility] Work Phone: [phone] AV pk grad 18 mmHg [facility] Work Phone: [phone] AV pk everardo 2.1 m/s [facility] Work Phone: [phone] LA vol index A/L 27.4 ml/m2 [facility] Work Phone: [phone] LV A4C EF 67.7 [facility] Work Phone: [phone] LV EF 63 % [facility] Work Phone: [phone] LVIDd 5 cm [facility] Work Phone: [phone] LVOT diam 1.7 cm [facility] Work Phone: [phone] MV E/A ratio 0.89 [facility] Work Phone: [phone] RV free wall pk S' 14.9 cm/s [facility] Work Phone: [phone] RVSP 41 mmHg [facility] Work Phone: [phone] Tricuspid annular plane systolic excursion 3 cm [facility] Work Phone: [phone] [facility] [address], [address], [place] [address] TRANSTHORACIC ECHOCARDIOGRAM REPORT Patient Name: SIA ABDUL Reading Physician: [id number] Isi Goodman MD Study Date: 01/27/2024 Ordering Provider: [id number] ISI GOODMAN MRN/PID: [id number] Fellow: Nurse: Date of /Age: 406/30/1980 Clinical Quality Assurance Specialist: Rafia john KATY Gender assigned at F Additional Staff: : Height: 142.24 cm Admit Date: Weight: 133.36 kg Admission Status: Outpatient BSA / BMI: 2.09 m2 / 65.91 kg/m2 Blood Pressure: 109/74 mmHg Department Location: Study Type: TRANSTHORACIC ECHO (TTE) COMPLETE Diagnosis/ICD: Other forms of dyspnea-R06.09; Localized edema-R60.0 Indication: MARINO, Edema CPT Code: Echo Complete w Full Doppler-24685 Study Detail: The following Echo studies were [...] LA Area A2C: 21.1 cm2 LA Major Grover A4C: 6.4 cm LA Major Grover A2C: 6.4 cm RA VOLUME BY A/L [...] not included)... Isi Blue MD - 01/27/2024 [facility] [address], [address], [place] [address] TRANSTHORACIC ECHOCARDIOGRAM REPORT Patient Name: SIA ABDUL Reading Physician: [id number] Goodman MD Study Date: 01/27/2024 Ordering Provider: [id number] GOODMAN MRN/PID: [id number] Fellow: Nurse: Date of /Age: 406/30/1980 Clinical Quality Assurance Specialist: Rafia john RDCS Gender assigned at F Additional Staff: : Height: 142.24 cm Admit Date: Weight: 133.36 kg Admission Status: Outpatient BSA / BMI: 2.09 m2 / 65.91 kg/m2 Blood Pressure: 109/74 mmHg Department Location: Study Type: TRANSTHORACIC ECHO (TTE) COMPLETE Diagnosis/ICD: Other forms of dyspnea-R06.09; Localized edema-R60.0 Indication: MARINO, Edema CPT Code: Echo Complete w Full Doppler-00117 Study Detail: The following Echo studies were [...] LA Area A2C: 21.1 cm2 LA Major Grover A4C: 6.4 cm LA Major Grover A2C: 6.4 cm RA VOLUME BY A/L [...] 1.70 cm (1.8- (more content not included)... [facility] Work Phone: [facility] Work Phone: Basic Metabolic Profile (BMP )on 01-26-2024 BUN/CRE 41.1 RATIO High - [facility] Comment on above: Performed By: #### L 500.2500 ####[facility] [address] [place], [place], [address] [place],Total 9.0 mg/dL Normal 8.5-10.1 [facility] Comment on above: Performed By: #### L 500.2500 ####[facility] [address] [place], [address] Chloride [Moles/Vol] 103 mmol/L Normal 98-107 [facility] Comment on above: Performed By: #### L 500.2500 ####[facility] [address] [place], [address] CO2 [Moles/Vol] 33.0 mmol/L High 21.0-32.0 [facility] Comment on above: Performed By: #### L 500.2500 ####[facility] [address] [place], [address] Creatinine [Mass/Vol] 0.61 mg/dL Normal 0.55-1.02 [facility] Comment on above: Result Comment: The validity of the calculated GFR GFRAA in patients over70 years has not been determined. Clinical correlation isessential. Performed By: #### L 500.2500 ####[facility] [address] [place], [address] ECRCL 158.99 ml/min Normal [facility] Comment on above: Performed By: #### L 500.2500 ####[facility] [address] [place], [address] EST GFR - AA 139 mL/min Normal >60 [facility] Comment on above: Result Comment: Afri can [place] GFR Calc Performed By: #### L 500.2500 ####[facility] [address] [place], [address] GAP 0 Low 5-15 [facility] Comment on above: Performed By: #### L 500.2500 ####[facility] [address] [place], [address] GFR/1.73 sq M.predicted among non-blacks MDRD (S/P/Bld) [Vol rate/Area] 115 mL/min/{1.73_m2} Normal >60 [facility] Comment on above: Result Comment: Non- GFR Calc Performed By: #### L 500.2500 ####[facility] [address] [place], [address] Glucose [Mass/Vol] 92 mg/dL Normal 74-106 [facility] Comment on above: Performed By: #### L 500.2500 ####[facility] [address] [place], [address] Potassium [Moles/Vol] 4.4 mmol/L Normal 3.5-5.1 [facility] Comment on above: Performed By: #### L 500.2500 ####[facility] [address] [place], [address] Sodium [Moles/Vol] 136 mmol/L Normal 136-145 [facility] Comment on above: Performed By: #### L 500.2500 ####[facility] [address] [place], [address] Urea nitrogen [Mass/Vol] 25 mg/dL High 7-18 [facility] Comment on above: Performed By: #### L 500.2500 ####[facility] [address] [place], [address] Basic Metabolic Profile (BMP )on 01-25-2024 BUN/CRE 37.3 RATIO High 10-20 [facility] Comment on above: Performed By: #### L 500.2500 ####[facility] [address] [place], [address] CA,Total 8.5 mg/dL Normal 8.5-10.1 [facility] Comment on above: Performed By: #### L 500.2500 ####[facility] [address] [place], [address] Chloride [Moles/Vol] 103 mmol/L Normal 98-107 [facility] Comment on above: Performed By: #### L 500.2500 ####[facility] [address] [place], [address] CO2 [Moles/Vol] 33.0 mmol/L High 21.0-32.0 [facility] Comment on above: Performed By: #### L 500.2500 ####[facility] [address] [place], [address] Creatinine [Mass/Vol] 0.64 mg/dL Normal 0.55-1.02 [facility] Comment on above: Result Comment: The validity of the calculated GFR GFRAA in patients over70 years has not been determined. Clinical correlation isessential. Performed By: #### L 500.2500 ####[facility] [address] [place], [address] ECRCL 151.75 ml/min Normal [facility] Comment on above: Performed By: #### L 500.2500 ####[facility] [address] [place], [address] EST GFR - AA 130 mL/min Normal >60 [facility] Comment on above: Result Comment: Afri can Bahraini GFR Calc Performed By: #### L 500.2500 ####[facility] [address] [place], [address] GAP 2 Low 5-15 [facility] Comment on above: Performed By: #### L 500.2500 ####[facility] [address] [place], [address] GFR/1.73 sq M.predicted among non-blacks MDRD (S/P/Bld) [Vol rate/Area] 108 mL/min/{1.73_m2} Normal >60 [facility] Comment on above: Result Comment: Non- GFR Calc Performed By: #### L 500.2500 ####[facility] [address] [place], [address] Glucose [Mass/Vol] 113 mg/dL High 74-106 [facility] Comment on above: Result Comment: Fast ing Glucose result from 100 to 125 mg/dLsuggests IMPAIRED HOMEOSTASIS per A.D.A. criteria. Performed By: #### L 500.2500 ####[facility] [address] [place], [address] Potassium [Moles/Vol] 4.2 mmol/L Normal 3.5-5.1 [facility] Comment on above: Performed By: #### L 500.2500 ####[facility] [address] [place], [address] Sodium [Moles/Vol] 139 mmol/L Normal 136-145 [facility] Comment on above: Performed By: #### L 500.2500 ####[facility] [address] [place], [address] Urea nitrogen [Mass/Vol] 24 mg/dL High 7-18 [facility] Comment on above: Performed By: #### L 500.2500 ####[facility] [address] [place], [address] Discharge Instructionon 01-08 Discharge Instruction Normal [facility] BNP,B-Type NATRIURETIC PEPTI Christa 01-23-2024 Natriuretic peptide B (Bld) [Mass/Vol] 38.5 pg/mL Normal 0-100 [facility] Comment on above: Performed By: #### L 100.0100, L503.6620, L501.5200, L500.2500, L501.4020 ####[facility] [address] [place], [address] Basic Metabolic Profile (BMP )on 01-23-2024 BUN/CRE 39.8 RATIO High 10-20 [facility] Comment on above: Order Comment: 'TROP ' Serial specimen #1, #2 or #3: 1 Performed By: #### L 100.0100, L503.6620, L501.5200, L500.2500, L501.4020 ####[facility] [address] [place], [address] CA,Total 8.9 mg/dL Normal 8.5-10.1 [facility] Comment on above: Order Comment: 'TROP ' Serial specimen #1, #2 or #3: 1 Performed By: #### L 100.0100, L503.6620, L501.5200, L500.2500, L501.4020 ####[facility] [address] [place], [address] Chloride [Moles/Vol] 100 mmol/L Normal 98-107 [facility] Comment on above: Order Comment: 'TROP ' Serial specimen #1, #2 or #3: 1 Performed By: #### L 100.0100, L503.6620, L501.5200, L500.2500, L501.4020 ####[facility] [address] [place], [address] CO2 [Moles/Vol] 34.0 mmol/L High 21.0-32.0 [facility] Comment on above: Order Comment: 'TROP ' Serial specimen #1, #2 or #3: 1 Performed By: #### L 100.0100, L503.6620, L501.5200, L500.2500, L501.4020 ####[facility] [address] [place], [address] Creatinine [Mass/Vol] 0.73 mg/dL Normal 0.55-1.02 [facility] Comment on above: Order Comment: 'TROP ' Serial specimen #1, #2 or #3: 1 Result Comment: The validity of the calculated GFR GFRAA in patients over70 years has not been determined. Clinical correlation isessential. Performed By: #### L 100.0100, L503.6620, L501.5200, L500.2500, L501.4020 ####[facility] [address] [place], [address] ECRCL 129.52 ml/min Normal [facility] Comment on above: Order Comment: 'TROP ' Serial specimen #1, #2 or #3: 1 Performed By: #### L 100.0100, L503.6620, L501.5200, L500.2500, L501.4020 ####[facility] [address] [place], [address] EST GFR - AA 113 mL/min Normal >60 [facility] Comment on above: Order Comment: 'TROP ' Serial specimen #1, #2 or #3: 1 Result Comment: Afri can Bahraini GFR Calc Performed By: #### L 100.0100, L503.6620, L501.5200, L500.2500, L501.4020 ####[facility] [address] [place], [address] GAP 3 Low 5-15 [facility] Comment on above: Order Comment: 'TROP ' Serial specimen #1, #2 or #3: 1 Performed By: #### L 100.0100, L503.6620, L501.5200, L500.2500, L501.4020 ####[facility] [address] [place], [address] GFR/1.73 sq M.predicted among non-blacks MDRD (S/P/Bld) [Vol rate/Area] 93 mL/min/{1.73_m2} Normal >60 [facility] Comment on above: Order Comment: 'TROP ' Serial specimen #1, #2 or #3: 1 Result Comment: Non- GFR Calc Performed By: #### L 100.0100, L503.6620, L501.5200, L500.2500, L501.4020 ####[facility] [address] [place], [address] Glucose [Mass/Vol] 78 mg/dL Normal 74-106 [facility] Comment on above: Order Comment: 'TROP ' Serial specimen #1, #2 or #3: 1 Performed By: #### L 100.0100, L503.6620, L501.5200, L500.2500, L501.4020 ####[facility] [address] [place], [address] Potassium [Moles/Vol] 4.2 mmol/L Normal 3.5-5.1 [facility] Comment on above: Order Comment: 'TROP ' Serial specimen #1, #2 or #3: 1 Performed By: #### L 100.0100, L503.6620, L501.5200, L500.2500, L501.4020 ####[facility] [address] [place], [address] Sodium [Moles/Vol] 137 mmol/L Normal 136-145 [facility] Comment on above: Order Comment: 'TROP ' Serial specimen #1, #2 or #3: 1 Performed By: #### L 100.0100, L503.6620, L501.5200, L500.2500, L501.4020 ####[facility] [address] [place], [address] Urea nitrogen [Mass/Vol] 29 mg/dL High 7-18 [facility] Comment on above: Order Comment: 'TROP ' Serial specimen #1, #2 or #3: 1 Performed By: #### L 100.0100, L503.6620, L501.5200, L500.2500, L501.4020 ####[facility] [address] [place], [address] CBC W/Diff, Automatedon 11-1 Absolute Lymph 2.61 X10 3/uL Normal 0.83-4.51 [facility] Comment on above: Performed By: #### L 100.0100, L500.4050 ####[facility] [address] [place], [address] Absolute Neut 8.4 X10 3/uL High 2.0-7.7 [facility] Comment on above: Performed By: #### L 100.0100, L500.4050 ####[facility] [address] [place], [address] Basophils/100 WBC (Bld) 0.5 % Normal 0-1 [facility] Comment on above: Performed By: #### L 100.0100, L500.4050 ####[facility] [address] [place], [address] Eosinophils/100 WBC (Bld) 4.7 % Normal 0-5 [facility] Comment on above: Performed By: #### L 100.0100, L500.4050 ####[facility] [address] [place], [address] Erythrocyte distribution width (RBC) [Ratio] 13.2 % Normal 11.6-14.6 [facility] Comment on above: Performed By: #### L 100.0100, L500.4050 ####[facility] [address] [place], [address] Hematocrit (Bld) [Volume fraction] 34.9 % Low 37-47 [facility] Comment on above: Performed By: #### L 100.0100, L500.4050 ####[facility] [address] [place], [address] Hemoglobin (Bld) [Mass/Vol] 11.0 g/dL Low 12.0-15.0 [facility] Comment on above: Performed By: #### L 100.0100, L500.4050 ####[facility] [address] [place], [address] IG% 0.600 Normal 0.0-0.9 [facility] Comment on above: Result Comment: IG% - Immature Granulocytes (promyelocytes, myelocytes andmetamyelocytes) > 1% indicates that a LEFT SHIFT is Present. Performed By: #### L 100.0100, L500.4050 ####[facility] [address] [place], [address] Lymphocytes/100 WBC (Bld) 20.2 % Normal 19-41 [facility] Comment on above: Performed By: #### L 100.0100, L500.4050 ####[facility] [address] [place], [address] MCH (RBC) [Entitic mass] 32.0 pg Normal 27.0-32.0 [facility] Comment on above: Performed By: #### L 100.0100, L500.4050 ####[facility] [address] [place], [address] MCHC (RBC) [Mass/Vol] 31.5 g/dL Low 32-36 [facility] Comment on above: Performed By: #### L 100.0100, L500.4050 ####[facility] [address] [place], [address] MCV (RBC) [Entitic vol] 101.5 fL High 81-99 [facility] Comment on above: Performed By: #### L 100.0100, L500.4050 ####[facility] [address] [place], [address] Monocytes/100 WBC (Bld) 9.1 % Normal 0-10 [facility] Comment on above: Performed By: #### L 100.0100, L500.4050 ####[facility] [address] [place], [address] Neutrophils/100 WBC (Bld) 64.9 % Normal 47-70 [facility] Comment on above: Performed By: #### L 100.0100, L500.4050 ####[facility] [address] [place], [address] Nucleated RBC (Bld) [#/Vol] 0 10*3/uL Normal 0-5 [facility] Comment on above: Performed By: #### L 100.0100, L500.4050 ####[facility] [address] [place], [address] Platelet mean volume (Bld) [Entitic vol] 11.4 fL Normal 6.2-12.0 [facility] Comment on above: Performed By: #### L 100.0100, L500.4050 ####[facility] [address] [place], [address] Platelets (Bld) [#/Vol] 156 10*3/uL Normal 150-450 [facility] Comment on above: Performed By: #### L 100.0100, L500.4050 ####[facility] [address] [place], [address] RBC (Bld) [#/Vol] 3.44 10*6/uL Low 4.2-5.4 [facility] Comment on above: Performed By: #### L 100.0100, L500.4050 ####[facility] [address] [place], [address] RDW SD 49.1 fl High 35.1-43.9 [facility] Comment on above: Performed By: #### L 100.0100, L500.4050 ####[facility] [address] [place], [address] WBC (Bld) [#/Vol] 12.9 10*3/uL High 4.4-11.0 [facility] Comment on above: Performed By: #### L 100.0100, L500.4050 ####[facility] [address] [place], [address] Absolute Lymph 2.83 X10 3/uL Normal 0.83-4.51 [facility] Comment on above: Performed By: #### L 100.0100, L503.6620, L501.5200, L500.2500, L501.4020 ####[facility] [address] [place], [address] Absolute Neut 9.1 X10 3/uL High 2.0-7.7 [facility] Comment on above: Performed By: #### L 100.0100, L503.6620, L501.5200, L500.2500, L501.4020 ####[facility] [address] [place], [address] Basophils/100 WBC (Bld) 0.6 % Normal 0-1 [facility] Comment on above: Performed By: #### L 100.0100, L503.6620, L501.5200, L500.2500, L501.4020 ####[facility] [address] [place], [address] Eosinophils/100 WBC (Bld) 4.9 % Normal 0-5 [facility] Comment on above: Performed By: #### L 100.0100, L503.6620, L501.5200, L500.2500, L501.4020 ####[facility] [address] [place], [address] Erythrocyte distribution width (RBC) [Ratio] 13.2 % Normal 11.6-14.6 [facility] Comment on above: Performed By: #### L 100.0100, L503.6620, L501.5200, L500.2500, L501.4020 ####[facility] [address] [place], [address] Hematocrit (Bld) [Volume fraction] 37.6 % Normal 37-47 [facility] Comment on above: Performed By: #### L 100.0100, L503.6620, L501.5200, L500.2500, L501.4020 ####[facility] [address] [place], [address] Hemoglobin (Bld) [Mass/Vol] 12.0 g/dL Normal 12.0-15.0 [facility] Comment on above: Performed By: #### L 100.0100, L503.6620, L501.5200, L500.2500, L501.4020 ####[facility] [address] [place], [address] IG% 0.900 Normal 0.0-0.9 [facility] Comment on above: Result Comment: IG% - Immature Granulocytes (promyelocytes, myelocytes andmetamyelocytes) > 1% indicates that a LEFT SHIFT is Present. Performed By: #### L 100.0100, L503.6620, L501.5200, L500.2500, L501.4020 ####[facility] [address] [place], [address] Lymphocytes/100 WBC (Bld) 20.1 % Normal 19-41 [facility] Comment on above: Performed By: #### L 100.0100, L503.6620, L501.5200, L500.2500, L501.4020 ####[facility] [address] [place], [address] MCH (RBC) [Entitic mass] 32.4 pg High 27.0-32.0 [facility] Comment on above: Performed By: #### L 100.0100, L503.6620, L501.5200, L500.2500, L501.4020 ####[facility] [address] [place], [address] MCHC (RBC) [Mass/Vol] 31.9 g/dL Low 32-36 [facility] Comment on above: Performed By: #### L 100.0100, L503.6620, L501.5200, L500.2500, L501.4020 ####[facility] [address] [place], [address] MCV (RBC) [Entitic vol] 101.6 fL High 81-99 [facility] Comment on above: Performed By: #### L 100.0100, L503.6620, L501.5200, L500.2500, L501.4020 ####[facility] [address] [place], [address] Monocytes/100 WBC (Bld) 9.0 % Normal 0-10 [facility] Comment on above: Performed By: #### L 100.0100, L503.6620, L501.5200, L500.2500, L501.4020 ####[facility] [address] [place], [address] Neutrophils/100 WBC (Bld) 64.5 % Normal 47-70 [facility] Comment on above: Performed By: #### L 100.0100, L503.6620, L501.5200, L500.2500, L501.4020 ####[facility] [address] [place], [address] Nucleated RBC (Bld) [#/Vol] 0 10*3/uL Normal 0-5 [facility] Comment on above: Performed By: #### L 100.0100, L503.6620, L501.5200, L500.2500, L501.4020 ####[facility] [address] [place], [address] Platelet mean volume (Bld) [Entitic vol] 11.1 fL Normal 6.2-12.0 [facility] Comment on above: Performed By: #### L 100.0100, L503.6620, L501.5200, L500.2500, L501.4020 ####[facility] [address] [place], [address] Platelets (Bld) [#/Vol] 172 10*3/uL Normal 150-450 [facility] Comment on above: Performed By: #### L 100.0100, L503.6620, L501.5200, L500.2500, L501.4020 ####[facility] [address] [place], [address] RBC (Bld) [#/Vol] 3.70 10*6/uL Low 4.2-5.4 [facility] Comment on above: Performed By: #### L 100.0100, L503.6620, L501.5200, L500.2500, L501.4020 ####[facility] [address] [place], [address] RDW SD 49.0 fl High 35.1-43.9 [facility] Comment on above: Performed By: #### L 100.0100, L503.6620, L501.5200, L500.2500, L501.4020 ####[facility] [address] [place], [address] WBC (Bld) [#/Vol] 14.1 10*3/uL High 4.4-11.0 [facility] Comment on above: Performed By: #### L 100.0100, L503.6620, L501.5200, L500.2500, L501.4020 ####[facility] [address] [place], [address] [facility] SIA ABDUL ([id number]) 1980 F Date Time Provider Department 01/23/24 MIKA KAPLAN During your visit today, we recorded the following information about you: Heidy BallhJORDAN 01/23/2024 10:34 AM Signed Clarence from [facility] calling patient Cariologist took her off the bumex and furosemide and put her on torsemide 20 mg twice daily. Last night her weight was 297.6 pounds. Patient is admitted to [facility] today with CHF. Mika Kaplan APRN.CNP 01/23/2024 [...] 2 SPRAYS IN EACH NOSTRIL DAILY - Bhevn-3-DDK-EPA-Fish Oil 1,000 mg (120 mg-180 mg) cap [...] (chronic) (per (more content not included)... Normal [facility] Metabolic [facility] 01-23-2024 Albumin [Mass/Vol] 3.0 g/dL Low 3.2-5.0 [facility] Comment on above: Performed By: #### L 100.0100, L500.4050 ####[facility] [address] [place], [address] Albumin/Globulin [Mass ratio] 0.9 {ratio} Normal 0.9-2.4 [facility] Comment on above: Performed By: #### L 100.0100, L500.4050 ####[facility] [address] [place], [address] ALK P 76 U/L Normal 45-117 [facility] Comment on above: Performed By: #### L 100.0100, L500.4050 ####[facility] [address] [place], [address] ALT [Catalytic activity/Vol] 20 U/L Normal 13-56 [facility] Comment on above: Performed By: #### L 100.0100, L500.4050 ####[facility] [address] [place], [address] AST [Catalytic activity/Vol] 12 U/L Low 15-37 [facility] Comment on above: Performed By: #### L 100.0100, L500.4050 ####[facility] [address] [place], [address] Bilirubin [Mass/Vol] 0.50 mg/dL Normal 0.20-1.00 [facility] Comment on above: Result Comment: For patients on eltrombopag therapy, use of Dimension [place] TBIL is not recommended. Performed By: #### L 100.0100, L500.4050 ####[facility] [address] [place], [address] BUN/CRE 42.2 RATIO High 10-20 [facility] Comment on above: Performed By: #### L 100.0100, L500.4050 ####[facility] [address] [place], [address] CA,Total 8.6 mg/dL Normal 8.5-10.1 [facility] Comment on above: Performed By: #### L 100.0100, L500.4050 ####[facility] [address] [place], [address] Chloride [Moles/Vol] 101 mmol/L Normal 98-107 [facility] Comment on above: Performed By: #### L 100.0100, L500.4050 ####[facility] [address] [place], [address] CO2 [Moles/Vol] 35.0 mmol/L High 21.0-32.0 [facility] Comment on above: Performed By: #### L 100.0100, L500.4050 ####[facility] [address] [place], [address] Creatinine [Mass/Vol] 0.69 mg/dL Normal 0.55-1.02 [facility] Comment on above: Result Comment: The validity of the calculated GFR GFRAA in patients over70 years has not been determined. Clinical correlation isessential. Performed By: #### L 100.0100, L500.4050 ####[facility] [address] [place], [address] ECRCL 140.83 ml/min Normal [facility] Comment on above: Performed By: #### L 100.0100, L500.4050 ####[facility] [address] [place], [address] EST GFR - AA 121 mL/min Normal >60 [facility] Comment on above: Result Comment: Afri can Bahraini GFR Calc Performed By: #### L 100.0100, L500.4050 ####[facility] [address] [place], [address] GAP 2 Low 5-15 [facility] Comment on above: Performed By: #### L 100.0100, L500.4050 ####[facility] [address] [place], [address] GFR/1.73 sq M.predicted among non-blacks MDRD (S/P/Bld) [Vol rate/Area] 100 mL/min/{1.73_m2} Normal >60 [facility] Comment on above: Result Comment: Non- GFR Calc Performed By: #### L 100.0100, L500.4050 ####[facility] [address] [place], [address] Globulin (S) [Mass/Vol] 3.3 g/dL Normal 2.2-4.2 [facility] Comment on above: Performed By: #### L 100.0100, L500.4050 ####[facility] [address] [place], [address] Glucose [Mass/Vol] 89 mg/dL Normal 74-106 [facility] Comment on above: Performed By: #### L 100.0100, L500.4050 ####[facility] [address] [place], [address] Potassium [Moles/Vol] 4.1 mmol/L Normal 3.5-5.1 [facility] Comment on above: Performed By: #### L 100.0100, L500.4050 ####[facility] [address] [place], [address] Sodium [Moles/Vol] 138 mmol/L Normal 136-145 [facility] Comment on above: Performed By: #### L 100.0100, L500.4050 ####[facility] [address] [place], [address] T PROT 6.3 g/dL Low 6.4-8.2 [facility] Comment on above: Performed By: #### L 100.0100, L500.4050 ####[facility] [address] [place], [address] Urea nitrogen [Mass/Vol] 29 mg/dL High 7-18 [facility] Comment on above: Performed By: #### L 100.0100, L500.4050 ####[facility] [address] [place], [address] H AND P Exam - [facility] 01-23-2024 H&P Exam - Hospitalist Normal [facility] L501.4020on 01-23-2024 TROPONIN-I HS 10 pg/mL Normal 3.0-54.0 [facility] Comment on above: Order Comment: 'TROP ' Serial specimen #1, #2 or #3: 1 Result Comment: Donald mcdonnell Note: New Test Units and Gender Specific Reference Ranges. For more information see Policy Stat Procedure [place] High Sensitivity Troponin (TNIH) and attachments. Performed By: #### L 100.0100, L503.6620, L501.5200, L500.2500, L501.4020 ####[facility] [address] [place], [address] Magnesiumon 01-23-2024 Magnesium [Mass/Vol] 2.4 mg/dL Normal 1.6-2.6 [facility] Comment on above: Order Comment: 'TROP ' Serial specimen #1, #2 or #3: 1 Performed By: #### L 100.0100, L503.6620, L501.5200, L500.2500, L501.4020 ####[facility] [address] [place], [address] Urinalysis, Completeon 01-22 RBC 0-5 SEEN Normal 0-5 [facility] Comment on above: Order Comment: CLEAN CATCH Performed By: #### L 400.0001 ####[facility] [address] [place], [address] BACTERIA 0 SEEN Normal None Seen [facility] Comment on above: Order Comment: CLEAN CATCH Performed By: #### L 400.0001 ####[facility] [address] [place], [address] EPI,SQUAMOUS 0 SEEN Normal 5-10 [facility] Comment on above: Order Comment: CLEAN CATCH Performed By: #### L 400.0001 ####[facility] [address] [place], [address] Mucus Ql (Urine sed) [address] [facility] Comment on above: Order Comment: CLEAN CATCH Performed By: #### L 400.0001 ####[facility] [address] [place], [address] WBC 0 SEEN Normal 0-5 [facility] Comment on above: Order Comment: CLEAN CATCH Performed By: #### L 400.0001 ####[facility] [address] [place], [address] 12 Lead EKGon 01-22-2024 12 Lead EKG Normal [facility] CNPNon 01-22-2024 CNPN Telephone (INTMWS) SIA ABDUL ([id number]) 1980 F Date Time Provider Department 01/22/24 MARILEE THAKUR INTMWS During your visit today, we recorded the following information about you: Kristine Hayes, RN 01/22/2024 2:42 PM Signed Clarence Calderon nurse with [facility] calling to see if he can get an order from provider's office for PT/OT for pt. Pt has significant health issues (seeing dental floss packer) and appears to be having more difficulty getting around. Having trouble getting on and off the bus to go to [employer]. Hoping to get PT/OT to evaluate and treat. No need to call Clarence back. If okay, please fax orders to [phone] [facility]. Mika Kaplan APRN.CNP 01/22/2024 3:15 PM Signed Agree with need for PT/OT and agree to follow. Thank you CLIF Mccain Joy, APRN.CNP 01/23/2024 7:22 AM Signed Patient currently admitted to hospital with CHF. Will need orders once discharged. Thank you Mika Kaplan APRN.BULB INSPECTOR Allergies As of Date: 01/22/2024 Noted Allergy [...] 2 SPRAYS IN EACH NOSTRIL DAILY - Waceh-9-JDD-EPA-Fish Oil 1,000 mg (120 mg-180 mg) cap [...] included)... Normal [facility] Chest 1 View (Portable)on Chest 1 View (Portable) Normal [facility] Emergency Department Summary on 01-22-2024 Emergency Department Summary Normal [facility] Comprehensive metabolic 2000 panelon 01-20-2024 Albumin BCP dye [Mass/Vol] 3.9 g/dL Normal 3.4-5.0 [facility] Comment on above: Performed By: #### 2 4323-8 #### ENEDINA Campbell ([id number]) [facility] ([facility]) [address] [place] [address] ALP [Catalytic activity/Vol] 81 U/L Normal 33-110 [facility] Comment on above: Performed By: #### 2 4323-8 #### ENEDINA Campbell ([id number]) [facility] ([facility]) [address] [place] [address] ALT With P-5'-P [Catalytic activity/Vol] 15 U/L Normal 7-45 [facility] Comment on above: Result Comment: Isabella ents treated with Sulfasalazine may generate falsely decreased results for ALT. Performed By: #### 2 4323-8 #### ENEDINA Campbell ([id number]) [facility] ([facility]) [address] [place] [address] Anion gap [Moles/Vol] 9 mmol/L Low 10-20 [facility] Comment on above: Performed By: #### 2 4323-8 #### ENEDINA Campbell ([id number]) [facility] ([facility]) [address] [place] [address] AST With P-5'-P [Catalytic activity/Vol] 14 U/L Normal 9-39 [facility] Comment on above: Performed By: #### 2 4323-8 #### ENEDINA Campbell ([id number]) [facility] ([facility]) [address] [place] [address] Bilirubin [Mass/Vol] 0.3 mg/dL Normal 0.0-1.2 [facility] Comment on above: Performed By: #### 2 4323-8 #### ENEDINA Campbell ([id number]) [facility] ([facility]) [address] [place] [address] Calcium [Mass/Vol] 9.0 mg/dL Normal 8.6-10.6 [facility] Comment on above: Performed By: #### 2 4323-8 #### ENEDINA ALVAREZ L ([id number]) [facility] ([facility]) [address] [place] [address] Chloride [Moles/Vol] 103 mmol/L Normal 98-107 [facility] Comment on above: Performed By: #### 2 4323-8 #### ENEDINA ALVAREZ L ([id number]) [facility] ([facility]) [address] [place] [address] CO2 [Moles/Vol] 35 mmol/L High 21-32 [facility] Comment on above: Performed By: #### 2 4323-8 #### ENEDINA Campbell ([id number]) [facility] ([facility]) [address] [place] [address] Creatinine [Mass/Vol] 0.74 mg/dL Normal 0.50-1.05 [facility] Comment on above: Performed By: #### 2 4323-8 #### ENEDINA Campbell ([id number]) [facility] ([facility]) [id number] [place] [address] GFR/1.73 sq M.predicted MDRD (S/P/Bld) [Vol rate/Area] mL/min/{1.73_m2} Normal >60 [facility] Comment on above: Result Comment: Calc ulations of estimated GFR are performed using the 2020 CKD-EPI Study Refit equation without the race variable for the IDMS-Traceable creatinine methods. https://jasn.asnjournals.org/content/early/ASN.2020 977545 Performed By: #### 2 4323-8 #### ENEDINA Campbell ([id number]) [facility] ([facility]) [address] [place] [address] Glucose [Mass/Vol] 91 mg/dL Normal 74-99 [facility] Comment on above: Performed By: #### 2 4323-8 #### ENEDINA Campbell ([id number]) [facility] ([facility]) [address] [place] [address] Potassium [Moles/Vol] 5.0 mmol/L Normal 3.5-5.3 [facility] Comment on above: Performed By: #### 2 4323-8 #### ENEDINA Campbell ([id number]) [facility] ([facility]) [address] [place] [address] Protein [Mass/Vol] 6.7 g/dL Normal 6.4-8.2 [facility] Comment on above: Performed By: #### 2 4323-8 #### ENEDINA Campbell ([id number]) [facility] ([facility]) [address] [place] [address] Sodium [Moles/Vol] 142 mmol/L Normal 136-145 [facility] Comment on above: Performed By: #### 2 4323-8 #### ENEDINA Campbell ([id number]) [facility] ([facility]) [address] [place] [address] Urea nitrogen [Mass/Vol] 26 mg/dL High 6-23 [facility] Comment on above: Performed By: #### 2 4323-8 #### ENEDINA Campbell ([id number]) [facility] ([facility]) [address] [place] [address] ECG 12-LEADon 01-20-2024 ECG 12-LEAD Ventricular Rate 69 Atrial Rate 69 P-R Interval 122 QRS Duration 78 Q-T Interval 370 QTC Calculation(Bazett) 396 P Grover 25 R Grover -5 T Grover 0 QRS Count 12 Q Onset 214 P Onset 153 P Offset 197 T Offset 399 QTC Fredericia 387 Diagnosis Normal sinus rhythm Nonspecific T wave abnormality Abnormal ECG Confirmed by Isi Goodman ([id number]) on 01/23/2024 11:24:41 AM Normal [facility] Natriuretic peptide B [Mass/ Vol]on 01-20-2024 Natriuretic peptide B (Bld) [Mass/Vol] 83 pg/mL Normal 0-99 [facility] Comment on above: Order Comment: <100 pg/mL [...] By: #### 3 0934-4 #### ENEDINA Campbell ([id number]) [facility] ([facility]) [address] [place], [place] [address]Sachi 01-19-2024 CNPN Telephone (INTMWS) SIA ABDUL ([id number]) 1980 F Date Time Provider Department 01/19/24 MARILEE THAKUR INTWS During your visit today, we recorded the following information about you: Lillie Marshall RN 01/19/2024 9:00 AM Signed Shobha from [facility] calls to report that patient has had [...] bumex for the next 3 days Regards, Pepper Keller MD, RN 01/20/2024 8:42 AM Signed VM left for Shobha to call provider's office for message below. RODRÍGUEZ Blake Krystle, RN 01/20/2024 12:47 PM Signed Shobha returns call and message below reviewed. Shobha reports that patient was to see dental floss packer Isi Goodman with . Bumex and Furosemide were both stopped. Patient was placed on Demadex 20 mg twice daily for now. Shobha reports that per Dr. Goodman, patient is not absorbing the Bumex or furosemide and obesity could be a factor. RODRÍGUEZ Braden Chitra, MD 01/20/2024 6:01 PM Signed Noted Regards, Marilee Thakur MD Allergies As of Date: 01/19/2024 Noted [...] 2 SPRAYS IN EACH NOSTRIL DAILY - Msupg-8-ZKO-EPA-Fish Oil 1,000 mg (120 mg-180 mg) cap [...] included)... Normal [facility] CNPNon 01-13-2024 CNPN Telephone (INTMWS) SIA ABDUL ([id number]) 1980 F Date Time Provider Department 01/13/24 MARILEE THAKUR INTWS During your visit today, we recorded the following information about you: Candelaria Ball LPN 01/13/2024 8:12 AM Signed Clarence from [facility] calling patient weight Friday am was 274 pounds. Patient weight this morning at 745 am is 278 pounds. Patient uses [facility] for the pharmacy. Please notify Clarence with any changes and also Shobha at [facility] [phone]. Please advise Marilee Thakur MD 01/13/2024 5:39 [...] since yesterday pt is now [address]. [facility]. They will be starting medication tomorrow 01-15-24 and will come in on Friday01/19/24 to get lab work done. If anything else is needed please call Clarence. Clarence will be keeping you updated on pt's weight and symptoms. Pamela Singh JORDAN SolerMima perry JORDAN 01/14/2024 12:00 PM [facility] as they want to start pt on it today? Order pending review. JORDAN Grissom Joy, APRN.OBED 01/14/2024 1:35 PM Signed Order sent. Please verify they are starting this today as she continues to have weight gain. Thank you Mika Kaplan APRN.OBED Solerorlando MimaJORDAN 01/14/2024 2:19 PM Signed Shobha from [facility] notified Rx has been sent in [...] 2 SPRAYS IN EACH NOSTRIL DAILY - Edbwy-6-GVU-EPA-Fish Oil 1,000 mg (120 mg-180 mg) cap [...] Recurrent celluliti (more content not included)... Normal [facility] CNOVon 01-12-2024 CNOV Office Visit (INTMWS ) SIA ABDUL ([id number]) 1980 F Date Time Provider Department 01/12/24 9:00 AM MARILEE THAKUR During your visit today, we [...] ) fluticasone (FLONASE) 50 mcg/actuation nasal spray Cxkwx-0-BAA-EPA-Fish Oil 1,000 mg (120 mg-180 mg) cap [...] PRESCRIPTION COMP (more content not included)... Normal [facility] 01-12-2024 CNPN Telephone (INTMWS) SIA ABDUL ([id number]) 1980 F Date Time Provider Department 01/12/24 MARILEE THAKUR INTWS During your visit today, we recorded the following information about you: Aaliyah Gonzalez MA 01/12/2024 10:20 AM Signed Patient needs orders for Pneumatic compression, stockings, and wraps. Orders pended. Please file if agreeable. Once ordered, will need to fax orders to [facility] at [phone], ATTN Shobha/COMFORT Agrawal Joy, APRN.BULB INSPECTOR 01/12/2024 12:10 PM Signed Orders placed. Please [...] right lower extremity [I89.0] Order(s):PNEUMATIC COMPRESSION DEVICE [[id number]] Order #: [id number] COMPRESSION STOCKINGS [[id number]] Order #: [id number] ELASTIC BANDAGE [[id number]] Order #: [id number] Prescriptions as of 01/12/2024 - furosemide (LASIX) [...] 2 SPRAYS IN EACH NOSTRIL DAILY - Bbalj-8-VRS-EPA-Fish Oil 1,000 mg (120 mg-180 mg) cap [...] included)... Normal [facility] Basic Metabolic Profile (BMP )on 01-08-2024 BUN/CRE 34.5 RATIO High 10-20 [facility] Comment on above: Performed By: #### L 500.2500 ####[facility] [address] [place], [address] CA,Total 9.3 mg/dL Normal 8.5-10.1 [facility] Comment on above: Performed By: #### L 500.2500 ####[facility] [address] [place], [address] Chloride [Moles/Vol] 106 mmol/L Normal 98-107 [facility] Comment on above: Performed By: #### L 500.2500 ####[facility] [address] [place], [address] CO2 [Moles/Vol] 32.0 mmol/L Normal 21.0-32.0 [facility] Comment on above: Performed By: #### L 500.2500 ####[facility] [address] [place], [address] Creatinine [Mass/Vol] 0.58 mg/dL Normal 0.55-1.02 [facility] Comment on above: Result Comment: The validity of the calculated GFR GFRAA in patients over70 years has not been determined. Clinical correlation isessential. Performed By: #### L 500.2500 ####[facility] [address] [place], [address] ECRCL 155.04 ml/min Normal [facility] Comment on above: Performed By: #### L 500.2500 ####[facility] [address] [place], [address] EST GFR - AA 147 mL/min Normal >60 [facility] Comment on above: Result Comment: Afri can Bahraini GFR Calc Performed By: #### L 500.2500 ####[facility] [address] [place], [address] GAP 3 Low 5-15 [facility] Comment on above: Performed By: #### L 500.2500 ####[facility] [address] [place], [address] GFR/1.73 sq M.predicted among non-blacks MDRD (S/P/Bld) [Vol rate/Area] 122 mL/min/{1.73_m2} Normal >60 [facility] Comment on above: Result Comment: Non- GFR Calc Performed By: #### L 500.2500 ####[facility] [address] [place], [address] Glucose [Mass/Vol] 78 mg/dL Normal 74-106 [facility] Comment on above: Performed By: #### L 500.2500 ####[facility] [address] [place], [address] Potassium [Moles/Vol] 4.6 mmol/L Normal 3.5-5.1 [facility] Comment on above: Performed By: #### L 500.2500 ####[facility] [address] [place], [address] Sodium [Moles/Vol] 141 mmol/L Normal 136-145 [facility] Comment on above: Performed By: #### L 500.2500 ####[facility] [address] [place], [address] Urea nitrogen [Mass/Vol] 20 mg/dL High 7-18 [facility] Comment on above: Performed By: #### L 500.2500 ####[facility] [address] [place], [address] Emergency Department Summary on 01-08-2024 Emergency Department Summary [facility] SIA ABDUL ([id number]) 1980 F Date Time Provider Department 01/07/24 MARILEE THAKUR INTMWS During your visit today, we recorded the following information about you: Candelaria Ball LPN 01/07/2024 10:29 AM Signed Sohbha caregiver from [facility] calling patient weight today at 850 am [...] 2 SPRAYS IN EACH NOSTRIL DAILY - Znilm-3-YVS-EPA-Fish Oil 1,000 mg (120 mg-180 mg) cap [...] [Z68.42] 02/09/2015 (more content not included)... Normal [facility] 01-06-2024 [facility] SIA ABDUL ([id number]) 1980 F Date Time Provider Department 01/06/24 MARILEE THAKUR INTMWS During your visit today, we recorded the following information about you: Candelaria Ball LPN 01/06/2024 10:58 AM Signed Shobha from [facility] Caregiver calling with patient weight was told [...] Shobha is needing written directions faxed to [phone] as Shobha is not licensed and can not take verbal order. Marilee Thakur MD 01/07/2024 10:44 AM Signed Can you update me how much lasix she lost with the lasix, since discharge? Marilee Lassiter MD, Amanda, RODRÍGUEZ 01/07/2024 11:16 AM Signed Called and left a voicemail for Shobha -skilled nursing, caregiver to call back and ask for a nurse to receive the providers message. Teresa Ferrera, Rah Fong, RODRÍGUEZ 01/07/2024 1:18 PM Signed Shobha returned call. Shobha had called today at 10:29 am, and that message copied and pasted below, and the other encounter closed: Note Shobha caregiver from [facility] calling patient weight today at 850 am [...] Please advise and phone Shobha with reply: [phone]. Shobha will still need order faxed to [phone] since she cannot take verbal. Rah Turner RN 01/08/2024 8:25 AM Signed Shobha- [facility]- phoned stating she needs a reply today, hopefully within the hour, b/c she has an SCRIPT WRITER there who can take a verbal. . [...] message below. Shobha agreeable. Shobha will have SCRIPT WRITER call in for verbal. Will leave encounter open until SCRIPT WRITER calls back. Reports the Rx's need to be sent to [facility]. Pended for [facility]. Patient has appt with dental floss packer- Dr. Goodman at [facility] on 01-20-24 @ 8:30 am, and with pcp on 01-12-24 @ 9 am. Rah Turner, RODRÍGUEZ 01/08/2024 9:24 AM Signed Blanca ORTEGA returned call and given verbal written by provider below. Blanca verbalized understanding. Still need Rx's sent to [facility]. Allergies As of Date: 01/06/2024 Noted Allergy Reaction BEE STING 02/28/2023 10 - Anaphylaxis DILANTIN (PHENYTOIN SODIUM EXTEND*01/28/2006 Date Reviewed: 11/18/2023 Reviewed by: Aaliyah Gonzalez MA - Fully Assessed Reason for Visit: Patient Update [1234] Primary Visit Diagnosis:Medication management [Z79.899] Order(s):BASIC METABOLIC PANEL [SQBMP] Order #: [id number] FUTURE furosemide (LASIX) 40 mg tabletTake 1 [...] 2 SPRAYS IN EACH NOSTRIL DAILY - Vzojt-9-GIM-EPA-Fish Oil 1,000 mg (120 mg-180 mg) cap Take 1 capsule by mouth once daily. - EPINEPHrine (EPIP (more content not included)... Normal [facility] Basic Metabolic Profile (BMP )on 01-04-2024 BUN Normal 7-18 [facility] Comment on above: Result Comment: Canc elled via OM: Order cancelled - Patient discharged Performed By: #### L 500.2500, L100.0100 ####[facility] [address] [place], [address] BUN/CRE Normal - [facility] Comment on above: Result Comment: Canc elled via OM: Order cancelled - Patient discharged Performed By: #### L 500.2500, L100.0100 ####[facility] [address] [place], [address] CA,Total Normal 8.5-10.1 [facility] Comment on above: Result Comment: Canc elled via OM: Order cancelled - Patient discharged Performed By: #### L 500.2500, L100.0100 ####[facility] [address] [place], [address] CL Normal 98-107 [facility] Comment on above: Result Comment: Canc elled via OM: Order cancelled - Patient discharged Performed By: #### L 500.2500, L100.0100 ####[facility] [address] [place], [address] CO2 Normal 21.0-32.0 [facility] Comment on above: Result Comment: Canc elled via OM: Order cancelled - Patient discharged Performed By: #### L 500.2500, L100.0100 ####[facility] [address] [place], [address] CREAT,SERUM Normal 0.55-1.02 [facility] Comment on above: Result Comment: Canc elled via OM: Order cancelled - Patient discharged Performed By: #### L 500.2500, L100.0100 ####[facility] [address] [place], [address] EST GFR Normal >60 [facility] Comment on above: Result Comment: Canc elled via OM: Order cancelled - Patient discharged Performed By: #### L 500.2500, L100.0100 ####[facility] [address] [place], [address] EST GFR - AA Normal >60 [facility] Comment on above: Result Comment: Canc elled via OM: Order cancelled - Patient discharged Performed By: #### L 500.2500, L100.0100 ####[facility] [address] [place], [address] GAP Normal 5-15 [facility] Comment on above: Result Comment: Canc elled via OM: Order cancelled - Patient discharged Performed By: #### L 500.2500, L100.0100 ####[facility] [address] [place], [address] GLU Normal 74-106 [facility] Comment on above: Result Comment: Canc elled via OM: Order cancelled - Patient discharged Performed By: #### L 500.2500, L100.0100 ####[facility] [address] [place], [address] Potassium Normal 3.5-5.1 [facility] Comment on above: Result Comment: Canc elled via OM: Order cancelled - Patient discharged Performed By: #### L 500.2500, L100.0100 ####[facility] [address] [place], [address] Basic Metabolic Profile (BMP) Normal 136-145 [facility] Comment on above: Result Comment: Canc elled via OM: Order cancelled - Patient discharged Performed By: #### L 500.2500, L100.0100 ####[facility] [address] [place], [address] CBC W/Diff, Automatedon 10-2 Absolute Neut Normal 2.0-7.7 [facility] Comment on above: Result Comment: Canc elled via OM: Order cancelled - Patient discharged Performed By: #### L 500.2500, L100.0100 ####[facility] [address] [place], [address] HCT Normal 37-47 [facility] Comment on above: Result Comment: Canc elled via OM: Order cancelled - Patient discharged Performed By: #### L 500.2500, L100.0100 ####[facility] [address] [place], [address] HGB Normal 12.0-15.0 [facility] Comment on above: Result Comment: Canc elled via OM: Order cancelled - Patient discharged Performed By: #### L 500.2500, L100.0100 ####[facility] [address] [place], [address] MCH Normal 27.0-32.0 [facility] Comment on above: Result Comment: Canc elled via OM: Order cancelled - Patient discharged Performed By: #### L 500.2500, L100.0100 ####[facility] [address] [place], [address] MCHC Normal 32-36 [facility] Comment on above: Result Comment: Canc elled via OM: Order cancelled - Patient discharged Performed By: #### L 500.2500, L100.0100 ####[facility] [address] [place], [address] MCV Normal 81-99 [facility] Comment on above: Result Comment: Canc elled via OM: Order cancelled - Patient discharged Performed By: #### L 500.2500, L100.0100 ####[facility] [address] [place], [address] NEUT% Normal 47-70 [facility] Comment on above: Result Comment: Canc elled via OM: Order cancelled - Patient discharged Performed By: #### L 500.2500, L100.0100 ####[facility] [address] [place], [address] PLT Normal 150-450 [facility] Comment on above: Result Comment: Canc elled via OM: Order cancelled - Patient discharged Performed By: #### L 500.2500, L100.0100 ####[facility] [address] [place], [address] RBC Normal 4.2-5.4 [facility] Comment on above: Result Comment: Canc elled via OM: Order cancelled - Patient discharged Performed By: #### L 500.2500, L100.0100 ####[facility] [address] [place], [address] RDW CV Normal 11.6-14.6 [facility] Comment on above: Result Comment: Canc elled via OM: Order cancelled - Patient discharged Performed By: #### L 500.2500, L100.0100 ####[facility] [address] [place], [address] RDW SD Normal 35.1-43.9 [facility] Comment on above: Result Comment: Canc elled via OM: Order cancelled - Patient discharged Performed By: #### L 500.2500, L100.0100 ####[facility] [address] [place], [address] WBC Normal 4.4-11.0 [facility] Comment on above: Result Comment: Canc elled via OM: Order cancelled - Patient discharged Performed By: #### L 500.2500, L100.0100 ####[facility] [address] [place], [address] Basic Metabolic Profile (BMP )on 01-03-2024 BUN Normal -18 [facility] Comment on above: Result Comment: Canc elled via OM: Order cancelled - Patient discharged Performed By: #### L 100.0100, L500.2500 ####[facility] [address] [place], [address] BUN/CRE Normal - [facility] Comment on above: Result Comment: Canc elled via OM: Order cancelled - Patient discharged Performed By: #### L 100.0100, L500.2500 ####[facility] [address] [place], [address] CA,Total Normal 8.5-10.1 [facility] Comment on above: Result Comment: Canc elled via OM: Order cancelled - Patient discharged Performed By: #### L 100.0100, L500.2500 ####[facility] [address] [place], [address] CL Normal 98-107 [facility] Comment on above: Result Comment: Canc elled via OM: Order cancelled - Patient discharged Performed By: #### L 100.0100, L500.2500 ####[facility] [address] [place], [address] CO2 Normal 21.0-32.0 [facility] Comment on above: Result Comment: Canc elled via OM: Order cancelled - Patient discharged Performed By: #### L 100.0100, L500.2500 ####[facility] [address] [place], [address] CREAT,SERUM Normal 0.55-1.02 [facility] Comment on above: Result Comment: Canc elled via OM: Order cancelled - Patient discharged Performed By: #### L 100.0100, L500.2500 ####[facility] [address] [place], [address] EST GFR Normal >60 [facility] Comment on above: Result Comment: Canc elled via OM: Order cancelled - Patient discharged Performed By: #### L 100.0100, L500.2500 ####[facility] [address] [place], [address] EST GFR - AA Normal >60 [facility] Comment on above: Result Comment: Canc elled via OM: Order cancelled - Patient discharged Performed By: #### L 100.0100, L500.2500 ####[facility] [address] [place], [address] GAP Normal 5-15 [facility] Comment on above: Result Comment: Canc elled via OM: Order cancelled - Patient discharged Performed By: #### L 100.0100, L500.2500 ####[facility] [address] [place], [address] GLU Normal 74-106 [facility] Comment on above: Result Comment: Canc elled via OM: Order cancelled - Patient discharged Performed By: #### L 100.0100, L500.2500 ####[facility] [address] [place], [address] Potassium Normal 3.5-5.1 [facility] Comment on above: Result Comment: Canc elled via OM: Order cancelled - Patient discharged Performed By: #### L 100.0100, L500.2500 ####[facility] [address] [place], [address] Basic Metabolic Profile (BMP) Normal 136-145 [facility] Comment on above: Result Comment: Canc elled via OM: Order cancelled - Patient discharged Performed By: #### L 100.0100, L500.2500 ####[facility] [address] [place], [address] CBC W/Diff, Automatedon 10-2 Absolute Neut Normal 2.0-7.7 [facility] Comment on above: Result Comment: Canc elled via OM: Order cancelled - Patient discharged Performed By: #### L 100.0100, L500.2500 ####[facility] [address] [place], [address] HCT Normal 37-47 [facility] Comment on above: Result Comment: Canc elled via OM: Order cancelled - Patient discharged Performed By: #### L 100.0100, L500.2500 ####[facility] [address] [place], [address] HGB Normal 12.0-15.0 [facility] Comment on above: Result Comment: Canc elled via OM: Order cancelled - Patient discharged Performed By: #### L 100.0100, L500.2500 ####[facility] [address] [place], [address] MCH Normal 27.0-32.0 [facility] Comment on above: Result Comment: Canc elled via OM: Order cancelled - Patient discharged Performed By: #### L 100.0100, L500.2500 ####[facility] [address] [place], [address] MCHC Normal 32-36 [facility] Comment on above: Result Comment: Canc elled via OM: Order cancelled - Patient discharged Performed By: #### L 100.0100, L500.2500 ####[facility] [address] [place], [address] MCV Normal 81-99 [facility] Comment on above: Result Comment: Canc elled via OM: Order cancelled - Patient discharged Performed By: #### L 100.0100, L500.2500 ####[facility] [address] [place], [address] NEUT% Normal 47-70 [facility] Comment on above: Result Comment: Canc elled via OM: Order cancelled - Patient discharged Performed By: #### L 100.0100, L500.2500 ####[facility] [address] [place], [address] PLT Normal 150-450 [facility] Comment on above: Result Comment: Canc elled via OM: Order cancelled - Patient discharged Performed By: #### L 100.0100, L500.2500 ####[facility] [address] [place], [address] RBC Normal 4.2-5.4 [facility] Comment on above: Result Comment: Canc elled via OM: Order cancelled - Patient discharged Performed By: #### L 100.0100, L500.2500 ####[facility] [address] [place], [address] RDW CV Normal 11.6-14.6 [facility] Comment on above: Result Comment: Canc elled via OM: Order cancelled - Patient discharged Performed By: #### L 100.0100, L500.2500 ####[facility] [address] [place], [address] RDW SD Normal 35.1-43.9 [facility] Comment on above: Result Comment: Canc elled via OM: Order cancelled - Patient discharged Performed By: #### L 100.0100, L500.2500 ####[facility] [address] [place], [address] WBC Normal 4.4-11.0 [facility] Comment on above: Result Comment: Canc elled via OM: Order cancelled - Patient discharged Performed By: #### L 100.0100, L500.2500 ####[facility] [address] [place], [address] Basic Metabolic Profile (BMP )on 01-02-2024 BUN Normal -18 [facility] Comment on above: Result Comment: ISABELLA ENT DISCHARGED Performed By: #### L 500.2500, L100.0100 ####[facility] [address] [place], [address] BUN/CRE Normal - [facility] Comment on above: Result Comment: ISABELLA ENT DISCHARGED Performed By: #### L 500.2500, L100.0100 ####[facility] [address] [place], [address] CA,Total Normal 8.5-10.1 [facility] Comment on above: Result Comment: ISABELLA ENT DISCHARGED Performed By: #### L 500.2500, L100.0100 ####[facility] [address] [place], [address] CL Normal 98-107 [facility] Comment on above: Result Comment: ISABELLA ENT DISCHARGED Performed By: #### L 500.2500, L100.0100 ####[facility] [address] [place], [address] CO2 Normal 21.0-32.0 [facility] Comment on above: Result Comment: ISABELLA ENT DISCHARGED Performed By: #### L 500.2500, L100.0100 ####[facility] [address] [place], [address] CREAT,SERUM Normal 0.55-1.02 [facility] Comment on above: Result Comment: ISABELLA ENT DISCHARGED Performed By: #### L 500.2500, L100.0100 ####[facility] [address] [place], [address] EST GFR Normal >60 [facility] Comment on above: Result Comment: ISABELLA ENT DISCHARGED Performed By: #### L 500.2500, L100.0100 ####[facility] [address] [place], [address] EST GFR - AA Normal >60 [facility] Comment on above: Result Comment: ISABELLA ENT DISCHARGED Performed By: #### L 500.2500, L100.0100 ####[facility] [address] [place], [address] GAP Normal 5-15 [facility] Comment on above: Result Comment: ISABELLA ENT DISCHARGED Performed By: #### L 500.2500, L100.0100 ####[facility] [address] [place], [address] GLU Normal 74-106 [facility] Comment on above: Result Comment: ISABELLA ENT DISCHARGED Performed By: #### L 500.2500, L100.0100 ####[facility] [address] [place], [address] Potassium Normal 3.5-5.1 [facility] Comment on above: Result Comment: ISABELLA ENT DISCHARGED Performed By: #### L 500.2500, L100.0100 ####[facility] [address] [place], [address] Basic Metabolic Profile (BMP) Normal 136-145 [facility] Comment on above: Result Comment: ISABELLA ENT DISCHARGED Performed By: #### L 500.2500, L100.0100 ####[facility] [address] [place], [address] Bedside Glucoseon 01-02-2024 FINGERSTICK GLU 86 mg/dL Normal 74-106 [facility] Comment on above: Result Comment: ETHAN PRITCHETT OF PATIENT CARE PER NURSING PROTOCOL Performed By: #### L 501.080 ####[facility] [address] [place], [address] CBC W/Diff, Automatedon 12-09 Absolute Neut Normal 2.0-7.7 [facility] Comment on above: Result Comment: @PAT IENT DISCHARGED Performed By: #### L 500.2500, L100.0100 ####[facility] [address] [place], [address] HCT Normal 37-47 [facility] Comment on above: Result Comment: @PAT IENT DISCHARGED Performed By: #### L 500.2500, L100.0100 ####[facility] [address] [place], [address] HGB Normal 12.0-15.0 [facility] Comment on above: Result Comment: @PAT IENT DISCHARGED Performed By: #### L 500.2500, L100.0100 ####[facility] [address] [place], [address] MCH Normal 27.0-32.0 [facility] Comment on above: Result Comment: @PAT IENT DISCHARGED Performed By: #### L 500.2500, L100.0100 ####[facility] [address] [place], [address] MCHC Normal 32-36 [facility] Comment on above: Result Comment: @PAT IENT DISCHARGED Performed By: #### L 500.2500, L100.0100 ####[facility] [address] [place], [address] MCV Normal 81-99 [facility] Comment on above: Result Comment: @PAT IENT DISCHARGED Performed By: #### L 500.2500, L100.0100 ####[facility] [address] [place], [address] NEUT% Normal 47-70 [facility] Comment on above: Result Comment: @PAT IENT DISCHARGED Performed By: #### L 500.2500, L100.0100 ####[facility] [address] [place], [address] PLT Normal 150-450 [facility] Comment on above: Result Comment: @PAT IENT DISCHARGED Performed By: #### L 500.2500, L100.0100 ####[facility] [address] [place], [address] RBC Normal 4.2-5.4 [facility] Comment on above: Result Comment: @PAT IENT DISCHARGED Performed By: #### L 500.2500, L100.0100 ####[facility] [address] [place], [address] RDW CV Normal 11.6-14.6 [facility] Comment on above: Result Comment: @PAT IENT DISCHARGED Performed By: #### L 500.2500, L100.0100 ####[facility] [address] [place], [address] RDW SD Normal 35.1-43.9 [facility] Comment on above: Result Comment: @PAT IENT DISCHARGED Performed By: #### L 500.2500, L100.0100 ####[facility] [address] [place], [address] WBC Normal 4.4-11.0 [facility] Comment on above: Result Comment: @PAT IENT DISCHARGED Performed By: #### L 500.2500, L100.0100 ####[facility] [address] [place], [address] Basic Metabolic Profile (BMP )on 01-01-2024 BUN/CRE 36.1 RATIO High 10-20 [facility] Comment on above: Performed By: #### L 100.0100, L500.2500 ####[facility] [address] [place], [address] CA,Total 8.8 mg/dL Normal 8.5-10.1 [facility] Comment on above: Performed By: #### L 100.0100, L500.2500 ####[facility] [address] [place], [address] Chloride [Moles/Vol] 100 mmol/L Normal 98-107 [facility] Comment on above: Performed By: #### L 100.0100, L500.2500 ####[facility] [address] [place], [address] CO2 [Moles/Vol] 39.0 mmol/L High 21.0-32.0 [facility] Comment on above: Performed By: #### L 100.0100, L500.2500 ####[facility] [address] [place], [address] Creatinine [Mass/Vol] 0.66 mg/dL Normal 0.55-1.02 [facility] Comment on above: Result Comment: The validity of the calculated GFR GFRAA in patients over70 years has not been determined. Clinical correlation isessential. Performed By: #### L 100.0100, L500.2500 ####[facility] [address] [place], [address] ECRCL 135.40 ml/min Normal [facility] Comment on above: Performed By: #### L 100.0100, L500.2500 ####[facility] [address] [place], [address] EST GFR - AA 126 mL/min Normal >60 [facility] Comment on above: Result Comment: Afri can Bahraini GFR Calc Performed By: #### L 100.0100, L500.2500 ####[facility] [address] [place], [address] GAP 1 Low 5-15 [facility] Comment on above: Performed By: #### L 100.0100, L500.2500 ####[facility] [address] [place], [address] GFR/1.73 sq M.predicted among non-blacks MDRD (S/P/Bld) [Vol rate/Area] 104 mL/min/{1.73_m2} Normal >60 [facility] Comment on above: Result Comment: Non- GFR Calc Performed By: #### L 100.0100, L500.2500 ####[facility] [address] [place], [address] Glucose [Mass/Vol] 88 mg/dL Normal 74-106 [facility] Comment on above: Performed By: #### L 100.0100, L500.2500 ####[facility] [address] [place], [address] Potassium [Moles/Vol] 4.0 mmol/L Normal 3.5-5.1 [facility] Comment on above: Performed By: #### L 100.0100, L500.2500 ####[facility] [address] [place], [address] Sodium [Moles/Vol] 140 mmol/L Normal 136-145 [facility] Comment on above: Performed By: #### L 100.0100, L500.2500 ####[facility] [address] [place], [address] Urea nitrogen [Mass/Vol] 24 mg/dL High 7-18 [facility] Comment on above: Performed By: #### L 100.0100, L500.2500 ####[facility] [address] [place], [address] CBC W/Diff, Automatedon 10-2 Absolute Lymph 2.82 X10 3/uL Normal 0.83-4.51 [facility] Comment on above: Performed By: #### L 100.0100, L500.2500 ####[facility] [address] [place], [address] Absolute Neut 8.3 X10 3/uL High 2.0-7.7 [facility] Comment on above: Performed By: #### L 100.0100, L500.2500 ####[facility] [address] [place], [address] Basophils/100 WBC (Bld) 0.6 % Normal 0-1 [facility] Comment on above: Performed By: #### L 100.0100, L500.2500 ####[facility] [address] [place], [address] Eosinophils/100 WBC (Bld) 3.6 % Normal 0-5 [facility] Comment on above: Performed By: #### L 100.0100, L500.2500 ####[facility] [address] [place], [address] Erythrocyte distribution width (RBC) [Ratio] 13.3 % Normal 11.6-14.6 [facility] Comment on above: Performed By: #### L 100.0100, L500.2500 ####[facility] [address] [place], [address] Hematocrit (Bld) [Volume fraction] 41.3 % Normal 37-47 [facility] Comment on above: Performed By: #### L 100.0100, L500.2500 ####[facility] [address] [place], [address] Hemoglobin (Bld) [Mass/Vol] 13.2 g/dL Normal 12.0-15.0 [facility] Comment on above: Performed By: #### L 100.0100, L500.2500 ####[facility] [address] [place], [address] IG% 1.100 High 0.0-0.9 [facility] Comment on above: Result Comment: IG% - Immature Granulocytes (promyelocytes, myelocytes andmetamyelocytes) > 1% indicates that a LEFT SHIFT is Present. Performed By: #### L 100.0100, L500.2500 ####[facility] [address] [place], [address] Lymphocytes/100 WBC (Bld) 21.3 % Normal 19-41 [facility] Comment on above: Performed By: #### L 100.0100, L500.2500 ####[facility] [address] [place], [address] MCH (RBC) [Entitic mass] 32.0 pg Normal 27.0-32.0 [facility] Comment on above: Performed By: #### L 100.0100, L500.2500 ####[facility] [address] [place], [address] MCHC (RBC) [Mass/Vol] 32.0 g/dL Normal 32-36 [facility] Comment on above: Performed By: #### L 100.0100, L500.2500 ####[facility] [address] [place], [address] MCV (RBC) [Entitic vol] 100.2 fL High 81-99 [facility] Comment on above: Performed By: #### L 100.0100, L500.2500 ####[facility] [address] [place], [address] Monocytes/100 WBC (Bld) 10.5 % High 0-10 [facility] Comment on above: Performed By: #### L 100.0100, L500.2500 ####[facility] [address] [place], [address] Neutrophils/100 WBC (Bld) 62.9 % Normal 47-70 [facility] Comment on above: Performed By: #### L 100.0100, L500.2500 ####[facility] [address] [place], [address] Nucleated RBC (Bld) [#/Vol] 0 10*3/uL Normal 0-5 [facility] Comment on above: Performed By: #### L 100.0100, L500.2500 ####[facility] [address] [place], [address] Platelet mean volume (Bld) [Entitic vol] 11.2 fL Normal 6.2-12.0 [facility] Comment on above: Performed By: #### L 100.0100, L500.2500 ####[facility] [address] [place], [address] Platelets (Bld) [#/Vol] 175 10*3/uL Normal 150-450 [facility] Comment on above: Performed By: #### L 100.0100, L500.2500 ####[facility] [address] [place], [address] RBC (Bld) [#/Vol] 4.12 10*6/uL Low 4.2-5.4 [facility] Comment on above: Performed By: #### L 100.0100, L500.2500 ####[facility] [address] [place], [address] RDW SD 49.1 fl High 35.1-43.9 [facility] Comment on above: Performed By: #### L 100.0100, L500.2500 ####[facility] [address] [place], [address] WBC (Bld) [#/Vol] 13.3 10*3/uL High 4.4-11.0 [facility] Comment on above: Performed By: #### L 100.0100, L500.2500 ####[facility] [address] [place], [address] Basic Metabolic Profile (BMP )on 12-31-2023 BUN/CRE 37.9 RATIO High 12-27 [facility] Comment on above: Performed By: #### L 500.2500, L100.0100 ####[facility] [address] [place], [address] CA,Total 8.7 mg/dL Normal 8.5-10.1 [facility] Comment on above: Performed By: #### L 500.2500, L100.0100 ####[facility] [address] [place], [address] Chloride [Moles/Vol] 98 mmol/L Normal 98-107 [facility] Comment on above: Performed By: #### L 500.2500, L100.0100 ####[facility] [address] [place], [address] CO2 [Moles/Vol] 36.0 mmol/L High 21.0-32.0 [facility] Comment on above: Performed By: #### L 500.2500, L100.0100 ####[facility] [address] [place], [address] Creatinine [Mass/Vol] 0.55 mg/dL Normal 0.55-1.02 [facility] Comment on above: Result Comment: The validity of the calculated GFR GFRAA in patients over70 years has not been determined. Clinical correlation isessential. Performed By: #### L 500.2500, L100.0100 ####[facility] [address] [place], [address] ECRCL 164.43 ml/min Normal [facility] Comment on above: Performed By: #### L 500.2500, L100.0100 ####[facility] [address] [place], [address] EST GFR - AA 155 mL/min Normal >60 [facility] Comment on above: Result Comment: Afri can Bahraini GFR Calc Performed By: #### L 500.2500, L100.0100 ####[facility] [address] [place], [address] GAP 2 Low 5-15 [facility] Comment on above: Performed By: #### L 500.2500, L100.0100 ####[facility] [address] [place], [address] GFR/1.73 sq M.predicted among non-blacks MDRD (S/P/Bld) [Vol rate/Area] 128 mL/min/{1.73_m2} Normal >60 [facility] Comment on above: Result Comment: Non- GFR Calc Performed By: #### L 500.2500, L100.0100 ####[facility] [address] [place], [address] Glucose [Mass/Vol] 87 mg/dL Normal 74-106 [facility] Comment on above: Performed By: #### L 500.2500, L100.0100 ####[facility] [address] [place], [address] Potassium [Moles/Vol] 4.3 mmol/L Normal 3.5-5.1 [facility] Comment on above: Performed By: #### L 500.2500, L100.0100 ####[facility] [address] [place], [address] Sodium [Moles/Vol] 136 mmol/L Normal 136-145 [facility] Comment on above: Performed By: #### L 500.2500, L100.0100 ####[facility] [address] [place], [address] Urea nitrogen [Mass/Vol] 21 mg/dL High 7-18 [facility] Comment on above: Performed By: #### L 500.2500, L100.0100 ####[facility] [address] [place], [address] CBC W/Diff, Automatedon 10-2 -2023 Absolute Lymph 2.40 X10 3/uL Normal 0.83-4.51 [facility] Comment on above: Performed By: #### L 500.2500, L100.0100 ####[facility] [address] [place], [address] Absolute Neut 7.1 X10 3/uL Normal 2.0-7.7 [facility] Comment on above: Performed By: #### L 500.2500, L100.0100 ####[facility] [address] [place], [address] Basophils/100 WBC (Bld) 0.4 % Normal 0-1 [facility] Comment on above: Performed By: #### L 500.2500, L100.0100 ####[facility] [address] [place], [address] Eosinophils/100 WBC (Bld) 4.3 % Normal 0-5 [facility] Comment on above: Performed By: #### L 500.2500, L100.0100 ####[facility] [address] [place], [address] Erythrocyte distribution width (RBC) [Ratio] 13.2 % Normal 11.6-14.6 [facility] Comment on above: Performed By: #### L 500.2500, L100.0100 ####[facility] [address] [place], [address] Hematocrit (Bld) [Volume fraction] 39.8 % Normal 37-47 [facility] Comment on above: Performed By: #### L 500.2500, L100.0100 ####[facility] [address] [place], [address] Hemoglobin (Bld) [Mass/Vol] 12.7 g/dL Normal 12.0-15.0 [facility] Comment on above: Performed By: #### L 500.2500, L100.0100 ####[facility] [address] [place], [address] IG% 0.800 Normal 0.0-0.9 [facility] Comment on above: Result Comment: IG% - Immature Granulocytes (promyelocytes, myelocytes andmetamyelocytes) > 1% indicates that a LEFT SHIFT is Present. Performed By: #### L 500.2500, L100.0100 ####[facility] [address] [place], [address] Lymphocytes/100 WBC (Bld) 21.3 % Normal 19-41 [facility] Comment on above: Performed By: #### L 500.2500, L100.0100 ####[facility] [address] [place], [address] MCH (RBC) [Entitic mass] 32.2 pg High 27.0-32.0 [facility] Comment on above: Performed By: #### L 500.2500, L100.0100 ####[facility] [address] [place], [address] MCHC (RBC) [Mass/Vol] 31.9 g/dL Low 32-36 [facility] Comment on above: Performed By: #### L 500.2500, L100.0100 ####[facility] [address] [place], [address] MCV (RBC) [Entitic vol] 101.0 fL High 81-99 [facility] Comment on above: Performed By: #### L 500.2500, L100.0100 ####[facility] [address] [place], [address] Monocytes/100 WBC (Bld) 10.1 % High 0-10 [facility] Comment on above: Performed By: #### L 500.2500, L100.0100 ####[facility] [address] [place], [address] Neutrophils/100 WBC (Bld) 63.1 % Normal 47-70 [facility] Comment on above: Performed By: #### L 500.2500, L100.0100 ####[facility] [address] [place], [address] Nucleated RBC (Bld) [#/Vol] 0 10*3/uL Normal 0-5 [facility] Comment on above: Performed By: #### L 500.2500, L100.0100 ####[facility] [address] [place], [address] Platelet mean volume (Bld) [Entitic vol] 10.5 fL Normal 6.2-12.0 [facility] Comment on above: Performed By: #### L 500.2500, L100.0100 ####[facility] [address] [place], [address] Platelets (Bld) [#/Vol] 152 10*3/uL Normal 150-450 [facility] Comment on above: Performed By: #### L 500.2500, L100.0100 ####[facility] [address] [place], [address] RBC (Bld) [#/Vol] 3.94 10*6/uL Low 4.2-5.4 [facility] Comment on above: Performed By: #### L 500.2500, L100.0100 ####[facility] [address] [place], [address] RDW SD 49.2 fl High 35.1-43.9 [facility] Comment on above: Performed By: #### L 500.2500, L100.0100 ####[facility] [address] [place], [address] WBC (Bld) [#/Vol] 11.3 10*3/uL High 4.4-11.0 [facility] Comment on above: Performed By: #### L 500.2500, L100.0100 ####[facility] [address] [place], [address] Basic Metabolic Profile (BMP )on 12-30-2023 BUN/CRE 38.0 RATIO High 10-20 [facility] Comment on above: Performed By: #### L 100.0100, L500.2500 ####[facility] [address] [place], [address] CA,Total 8.6 mg/dL Normal 8.5-10.1 [facility] Comment on above: Performed By: #### L 100.0100, L500.2500 ####[facility] [address] [place], [address] Chloride [Moles/Vol] 100 mmol/L Normal 98-107 [facility] Comment on above: Performed By: #### L 100.0100, L500.2500 ####[facility] [address] [place], [address] CO2 [Moles/Vol] 37.0 mmol/L High 21.0-32.0 [facility] Comment on above: Performed By: #### L 100.0100, L500.2500 ####[facility] [address] [place], [address] Creatinine [Mass/Vol] 0.55 mg/dL Normal 0.55-1.02 [facility] Comment on above: Result Comment: The validity of the calculated GFR GFRAA in patients over70 years has not been determined. Clinical correlation isessential. Performed By: #### L 100.0100, L500.2500 ####[facility] [address] [place], [address] ECRCL 165.37 ml/min Normal [facility] Comment on above: Performed By: #### L 100.0100, L500.2500 ####[facility] [address] [place], [address] EST GFR - AA 155 mL/min Normal >60 [facility] Comment on above: Result Comment: Afri can Bahraini GFR Calc Performed By: #### L 100.0100, L500.2500 ####[facility] [address] [place], [address] GAP 1 Low 5-15 [facility] Comment on above: Performed By: #### L 100.0100, L500.2500 ####[facility] [address] [place], [address] GFR/1.73 sq M.predicted among non-blacks MDRD (S/P/Bld) [Vol rate/Area] 128 mL/min/{1.73_m2} Normal >60 [facility] Comment on above: Result Comment: Non- GFR Calc Performed By: #### L 100.0100, L500.2500 ####[facility] [address] [place], [address] Glucose [Mass/Vol] 82 mg/dL Normal 74-106 [facility] Comment on above: Performed By: #### L 100.0100, L500.2500 ####[facility] [address] [place], [address] Potassium [Moles/Vol] 4.5 mmol/L Normal 3.5-5.1 [facility] Comment on above: Result Comment: Mode rate Hemolysis, Result may be falsely increased. Performed By: #### L 100.0100, L500.2500 ####[facility] [address] [place], [address] Sodium [Moles/Vol] 138 mmol/L Normal 136-145 [facility] Comment on above: Performed By: #### L 100.0100, L500.2500 ####[facility] [address] [place], [address] Urea nitrogen [Mass/Vol] 21 mg/dL High 7-18 [facility] Comment on above: Performed By: #### L 100.0100, L500.2500 ####[facility] [address] [place], [address] CBC W/Diff, Automatedon 10-2 2-2023 Absolute Lymph 2.42 X10 3/uL Normal 0.83-4.51 [facility] Comment on above: Performed By: #### L 100.0100, L500.2500 ####[facility] [address] [place], [address] Absolute Neut 7.5 X10 3/uL Normal 2.0-7.7 [facility] Comment on above: Performed By: #### L 100.0100, L500.2500 ####[facility] [address] [place], [address] Basophils/100 WBC (Bld) 0.4 % Normal 0-1 [facility] Comment on above: Performed By: #### L 100.0100, L500.2500 ####[facility] [address] [place], [address] Eosinophils/100 WBC (Bld) 3.5 % Normal 0-5 [facility] Comment on above: Performed By: #### L 100.0100, L500.2500 ####[facility] [address] [place], [address] Erythrocyte distribution width (RBC) [Ratio] 13.4 % Normal 11.6-14.6 [facility] Comment on above: Performed By: #### L 100.0100, L500.2500 ####[facility] [address] [place], [address] Hematocrit (Bld) [Volume fraction] 38.5 % Normal 37-47 [facility] Comment on above: Performed By: #### L 100.0100, L500.2500 ####[facility] [address] [place], [address] Hemoglobin (Bld) [Mass/Vol] 12.1 g/dL Normal 12.0-15.0 [facility] Comment on above: Performed By: #### L 100.0100, L500.2500 ####[facility] [address] [place], [address] IG% 0.600 Normal 0.0-0.9 [facility] Comment on above: Result Comment: IG% - Immature Granulocytes (promyelocytes, myelocytes andmetamyelocytes) > 1% indicates that a LEFT SHIFT is Present. Performed By: #### L 100.0100, L500.2500 ####[facility] [address] [place], [address] Lymphocytes/100 WBC (Bld) 20.9 % Normal 19-41 [facility] Comment on above: Performed By: #### L 100.0100, L500.2500 ####[facility] [address] [place], [address] MCH (RBC) [Entitic mass] 31.8 pg Normal 27.0-32.0 [facility] Comment on above: Performed By: #### L 100.0100, L500.2500 ####[facility] [address] [place], [address] MCHC (RBC) [Mass/Vol] 31.4 g/dL Low 32-36 [facility] Comment on above: Performed By: #### L 100.0100, L500.2500 ####[facility] [address] [place], [address] MCV (RBC) [Entitic vol] 101.3 fL High 81-99 [facility] Comment on above: Performed By: #### L 100.0100, L500.2500 ####[facility] [address] [place], [address] Monocytes/100 WBC (Bld) 9.5 % Normal 0-10 [facility] Comment on above: Performed By: #### L 100.0100, L500.2500 ####[facility] [address] [place], [address] Neutrophils/100 WBC (Bld) 65.1 % Normal 47-70 [facility] Comment on above: Performed By: #### L 100.0100, L500.2500 ####[facility] [address] [place], [address] Nucleated RBC (Bld) [#/Vol] 0 10*3/uL Normal 0-5 [facility] Comment on above: Performed By: #### L 100.0100, L500.2500 ####[facility] [address] [place], [address] Platelet mean volume (Bld) [Entitic vol] 10.8 fL Normal 6.2-12.0 [facility] Comment on above: Performed By: #### L 100.0100, L500.2500 ####[facility] [address] [place], [address] Platelets (Bld) [#/Vol] 177 10*3/uL Normal 150-450 [facility] Comment on above: Performed By: #### L 100.0100, L500.2500 ####[facility] [address] [place], [address] RBC (Bld) [#/Vol] 3.80 10*6/uL Low 4.2-5.4 [facility] Comment on above: Performed By: #### L 100.0100, L500.2500 ####[facility] [address] [place], [address] RDW SD 49.7 fl High 35.1-43.9 [facility] Comment on above: Performed By: #### L 100.0100, L500.2500 ####[facility] [address] [place], [address] WBC (Bld) [#/Vol] 11.6 10*3/uL High 4.4-11.0 [facility] Comment on above: Performed By: #### L 100.0100, L500.2500 ####[facility] [address] [place], [address] Basic Metabolic Profile (BMP )on 12-28-2023 BUN/CRE 33.2 RATIO High 10-20 [facility] Comment on above: Performed By: #### L 100.0100, L500.2500 ####[facility] [address] [place], [address] CA,Total 8.2 mg/dL Low 8.5-10.1 [facility] Comment on above: Performed By: #### L 100.0100, L500.2500 ####[facility] [address] [place], [address] Chloride [Moles/Vol] 103 mmol/L Normal 98-107 [facility] Comment on above: Performed By: #### L 100.0100, L500.2500 ####[facility] [address] [place], [address] CO2 [Moles/Vol] 38.0 mmol/L High 21.0-32.0 [facility] Comment on above: Performed By: #### L 100.0100, L500.2500 ####[facility] [address] [place], [address] Creatinine [Mass/Vol] 0.57 mg/dL Normal 0.55-1.02 [facility] Comment on above: Result Comment: The validity of the calculated GFR GFRAA in patients over70 years has not been determined. Clinical correlation isessential. Performed By: #### L 100.0100, L500.2500 ####[facility] [address] [place], [address] ECRCL 163.50 ml/min Normal [facility] Comment on above: Performed By: #### L 100.0100, L500.2500 ####[facility] [address] [place], [address] EST GFR - AA 149 mL/min Normal >60 [facility] Comment on above: Result Comment: Afri can Bahraini GFR Calc Performed By: #### L 100.0100, L500.2500 ####[facility] [address] [place], [address] GAP 0 Low 5-15 [facility] Comment on above: Performed By: #### L 100.0100, L500.2500 ####[facility] [address] [place], [address] GFR/1.73 sq M.predicted among non-blacks MDRD (S/P/Bld) [Vol rate/Area] 123 mL/min/{1.73_m2} Normal >60 [facility] Comment on above: Result Comment: Non- GFR Calc Performed By: #### L 100.0100, L500.2500 ####[facility] [address] [place], [address] Glucose [Mass/Vol] 88 mg/dL Normal 74-106 [facility] Comment on above: Performed By: #### L 100.0100, L500.2500 ####[facility] [address] [place], [address] Potassium [Moles/Vol] 4.0 mmol/L Normal 3.5-5.1 [facility] Comment on above: Performed By: #### L 100.0100, L500.2500 ####[facility] [address] [place], [address] Sodium [Moles/Vol] 140 mmol/L Normal 136-145 [facility] Comment on above: Performed By: #### L 100.0100, L500.2500 ####[facility] [address] [place], [address] Urea nitrogen [Mass/Vol] 19 mg/dL High 7-18 [facility] Comment on above: Performed By: #### L 100.0100, L500.2500 ####[facility] [address] [place], [address] CBC W/Diff, Automatedon 10-2 -2023 Absolute Lymph 2.46 X10 3/uL Normal 0.83-4.51 [facility] Comment on above: Performed By: #### L 100.0100, L500.2500 ####[facility] [address] [place], [address] Absolute Neut 7.4 X10 3/uL Normal 2.0-7.7 [facility] Comment on above: Performed By: #### L 100.0100, L500.2500 ####[facility] [address] [place], [address] Basophils/100 WBC (Bld) 0.4 % Normal 0-1 [facility] Comment on above: Performed By: #### L 100.0100, L500.2500 ####[facility] [address] [place], [address] Eosinophils/100 WBC (Bld) 2.7 % Normal 0-5 [facility] Comment on above: Performed By: #### L 100.0100, L500.2500 ####[facility] [address] [place], [address] Erythrocyte distribution width (RBC) [Ratio] 13.4 % Normal 11.6-14.6 [facility] Comment on above: Performed By: #### L 100.0100, L500.2500 ####[facility] [address] [place], [address] Hematocrit (Bld) [Volume fraction] 36.0 % Low 37-47 [facility] Comment on above: Performed By: #### L 100.0100, L500.2500 ####[facility] [address] [place], [address] Hemoglobin (Bld) [Mass/Vol] 11.2 g/dL Low 12.0-15.0 [facility] Comment on above: Performed By: #### L 100.0100, L500.2500 ####[facility] [address] [place], [address] IG% 0.700 Normal 0.0-0.9 [facility] Comment on above: Result Comment: IG% - Immature Granulocytes (promyelocytes, myelocytes andmetamyelocytes) > 1% indicates that a LEFT SHIFT is Present. Performed By: #### L 100.0100, L500.2500 ####[facility] [address] [place], [address] Lymphocytes/100 WBC (Bld) 21.7 % Normal 19-41 [facility] Comment on above: Performed By: #### L 100.0100, L500.2500 ####[facility] [address] [place], [address] MCH (RBC) [Entitic mass] 31.9 pg Normal 27.0-32.0 [facility] Comment on above: Performed By: #### L 100.0100, L500.2500 ####[facility] [address] [place], [address] MCHC (RBC) [Mass/Vol] 31.1 g/dL Low 32-36 [facility] Comment on above: Performed By: #### L 100.0100, L500.2500 ####[facility] [address] [place], [address] MCV (RBC) [Entitic vol] 102.6 fL High 81-99 [facility] Comment on above: Performed By: #### L 100.0100, L500.2500 ####[facility] [address] [place], [address] Monocytes/100 WBC (Bld) 9.2 % Normal 0-10 [facility] Comment on above: Performed By: #### L 100.0100, L500.2500 ####[facility] [address] [place], [address] Neutrophils/100 WBC (Bld) 65.3 % Normal 47-70 [facility] Comment on above: Performed By: #### L 100.0100, L500.2500 ####[facility] [address] [place], [address] Nucleated RBC (Bld) [#/Vol] 0 10*3/uL Normal 0-5 [facility] Comment on above: Performed By: #### L 100.0100, L500.2500 ####[facility] [address] [place], [address] Platelet mean volume (Bld) [Entitic vol] 10.8 fL Normal 6.2-12.0 [facility] Comment on above: Performed By: #### L 100.0100, L500.2500 ####[facility] [address] [place], [address] Platelets (Bld) [#/Vol] 154 10*3/uL Normal 150-450 [facility] Comment on above: Performed By: #### L 100.0100, L500.2500 ####[facility] [address] [place], [address] RBC (Bld) [#/Vol] 3.51 10*6/uL Low 4.2-5.4 [facility] Comment on above: Performed By: #### L 100.0100, L500.2500 ####[facility] [address] [place], [address] RDW SD 49.7 fl High 35.1-43.9 [facility] Comment on above: Performed By: #### L 100.0100, L500.2500 ####[facility] [address] [place], [address] WBC (Bld) [#/Vol] 11.4 10*3/uL High 4.4-11.0 [facility] Comment on above: Performed By: #### L 100.0100, L500.2500 ####[facility] [address] [place], [address] CTA Chest W/WO Contraston CTA Chest W/WO Contrast Normal [facility] D-Dimer Quantitative (DVT/PE )on 12-29-2023 D-DIMER QUANT 2.44 FEU/ug/m Invalid Interpretation Code 0.27-0.49 [facility] Comment on above: Order Comment: CRITI LORAINE VALUE CALLED TO gabi de la fuente12/29/23 0933 Brigette Andino.RESULTS READ BACK BY same. Result Comment: D-Di alexandrea ELEVATED (>0.49): Additional studies and clinicalassessments are indicated to conclude diagnosis of:Deep Vein Thrombosis (DVT) or Pulmonary Embolism (PE) Performed By: #### L 300.8000 ####[facility] [address] [place], [address] Basic Metabolic Profile (BMP )on 12-28-2023 BUN/CRE 34.3 RATIO High 12-27 [facility] Comment on above: Performed By: #### L 500.2500, L100.0100 ####[facility] [address] [place], [address] CA,Total 8.3 mg/dL Low 8.5-10.1 [facility] Comment on above: Performed By: #### L 500.2500, L100.0100 ####[facility] [address] [place], [address] Chloride [Moles/Vol] 104 mmol/L Normal 98-107 [facility] Comment on above: Performed By: #### L 500.2500, L100.0100 ####[facility] [address] [place], [address] CO2 [Moles/Vol] 35.0 mmol/L High 21.0-32.0 [facility] Comment on above: Performed By: #### L 500.2500, L100.0100 ####[facility] [address] [place], [address] Creatinine [Mass/Vol] 0.61 mg/dL Normal 0.55-1.02 [facility] Comment on above: Result Comment: The validity of the calculated GFR GFRAA in patients over70 years has not been determined. Clinical correlation isessential. Performed By: #### L 500.2500, L100.0100 ####[facility] [address] [place], [address] ECRCL 152.78 ml/min Normal [facility] Comment on above: Performed By: #### L 500.2500, L100.0100 ####[facility] [address] [place], [address] EST GFR - AA 138 mL/min Normal >60 [facility] Comment on above: Result Comment: Afri can Bahraini GFR Calc Performed By: #### L 500.2500, L100.0100 ####[facility] [address] [place], [address] GAP 0 Low 5-15 [facility] Comment on above: Performed By: #### L 500.2500, L100.0100 ####[facility] [address] [place], [address] GFR/1.73 sq M.predicted among non-blacks MDRD (S/P/Bld) [Vol rate/Area] 114 mL/min/{1.73_m2} Normal >60 [facility] Comment on above: Result Comment: Non- GFR Calc Performed By: #### L 500.2500, L100.0100 ####[facility] [address] [place], [address] Glucose [Mass/Vol] 93 mg/dL Normal 74-106 [facility] Comment on above: Performed By: #### L 500.2500, L100.0100 ####[facility] [address] [place], [address] Potassium [Moles/Vol] 4.2 mmol/L Normal 3.5-5.1 [facility] Comment on above: Performed By: #### L 500.2500, L100.0100 ####[facility] [address] [place], [address] Sodium [Moles/Vol] 139 mmol/L Normal 136-145 [facility] Comment on above: Performed By: #### L 500.2500, L100.0100 ####[facility] [address] [place], [address] Urea nitrogen [Mass/Vol] 21 mg/dL High 7-18 [facility] Comment on above: Performed By: #### L 500.2500, L100.0100 ####[facility] [address] [place], [address] CBC W/Diff, Automatedon 10-2 0-2024 Absolute Lymph 2.41 X10 3/uL Normal 0.83-4.51 [facility] Comment on above: Performed By: #### L 500.2500, L100.0100 ####[facility] [address] [place], [address] Absolute Neut 6.5 X10 3/uL Normal 2.0-7.7 [facility] Comment on above: Performed By: #### L 500.2500, L100.0100 ####[facility] [address] [place], [address] Basophils/100 WBC (Bld) 0.4 % Normal 0-1 [facility] Comment on above: Performed By: #### L 500.2500, L100.0100 ####[facility] [address] [place], [address] Eosinophils/100 WBC (Bld) 3.3 % Normal 0-5 [facility] Comment on above: Performed By: #### L 500.2500, L100.0100 ####[facility] [address] [place], [address] Erythrocyte distribution width (RBC) [Ratio] 13.3 % Normal 11.6-14.6 [facility] Comment on above: Performed By: #### L 500.2500, L100.0100 ####[facility] [address] [place], [address] Hematocrit (Bld) [Volume fraction] 37.8 % Normal 37-47 [facility] Comment on above: Performed By: #### L 500.2500, L100.0100 ####[facility] [address] [place], [address] Hemoglobin (Bld) [Mass/Vol] 11.8 g/dL Low 12.0-15.0 [facility] Comment on above: Performed By: #### L 500.2500, L100.0100 ####[facility] [address] [place], [address] IG% 1.000 High 0.0-0.9 [facility] Comment on above: Result Comment: IG% - Immature Granulocytes (promyelocytes, myelocytes andmetamyelocytes) > 1% indicates that a LEFT SHIFT is Present. Performed By: #### L 500.2500, L100.0100 ####[facility] [address] [place], [address] Lymphocytes/100 WBC (Bld) 23.1 % Normal 19-41 [facility] Comment on above: Performed By: #### L 500.2500, L100.0100 ####[facility] [address] [place], [address] MCH (RBC) [Entitic mass] 32.5 pg High 27.0-32.0 [facility] Comment on above: Performed By: #### L 500.2500, L100.0100 ####[facility] [address] [place], [address] MCHC (RBC) [Mass/Vol] 31.2 g/dL Low 32-36 [facility] Comment on above: Performed By: #### L 500.2500, L100.0100 ####[facility] [address] [place], [address] MCV (RBC) [Entitic vol] 104.1 fL High 81-99 [facility] Comment on above: Performed By: #### L 500.2500, L100.0100 ####[facility] [address] [place], [address] Monocytes/100 WBC (Bld) 10.2 % High 0-10 [facility] Comment on above: Performed By: #### L 500.2500, L100.0100 ####[facility] [address] [place], [address] Neutrophils/100 WBC (Bld) 62.0 % Normal 47-70 [facility] Comment on above: Performed By: #### L 500.2500, L100.0100 ####[facility] [address] [place], [address] Nucleated RBC (Bld) [#/Vol] 0 10*3/uL Normal 0-5 [facility] Comment on above: Performed By: #### L 500.2500, L100.0100 ####[facility] [address] [place], [address] Platelet mean volume (Bld) [Entitic vol] 11.2 fL Normal 6.2-12.0 [facility] Comment on above: Performed By: #### L 500.2500, L100.0100 ####[facility] [address] [place], [address] Platelets (Bld) [#/Vol] 142 10*3/uL Low 150-450 [facility] Comment on above: Performed By: #### L 500.2500, L100.0100 ####[facility] [address] [place], [address] RBC (Bld) [#/Vol] 3.63 10*6/uL Low 4.2-5.4 [facility] Comment on above: Performed By: #### L 500.2500, L100.0100 ####[facility] [address] [place], [address] RDW SD 50.2 fl High 35.1-43.9 [facility] Comment on above: Performed By: #### L 500.2500, L100.0100 ####[facility] [address] [place], [address] WBC (Bld) [#/Vol] 10.5 10*3/uL Normal 4.4-11.0 [facility] Comment on above: Performed By: #### L 500.2500, L100.0100 ####[facility] [address] [place], [address] Bedside Glucoseon 12-27-2023 FINGERSTICK GLU 73 mg/dL Low 74-106 [facility] Comment on above: Result Comment: ETHAN PRITCHETT OF PATIENT CARE PER NURSING PROTOCOL Performed By: #### L 501.080 ####[facility] [address] [place], [address] CBC W/Diff, Automatedon 12-08 Absolute Lymph 3.05 X10 3/uL Normal 0.83-4.51 [facility] Comment on above: Performed By: #### L 500.4050, L100.0100, L501.9520, L500.4100 ####[facility] [address] [place], [address] Absolute Neut 6.2 X10 3/uL Normal 2.0-7.7 [facility] Comment on above: Performed By: #### L 500.4050, L100.0100, L501.9520, L500.4100 ####[facility] [address] [place], [address] Basophils/100 WBC (Bld) 0.5 % Normal 0-1 [facility] Comment on above: Performed By: #### L 500.4050, L100.0100, L501.9520, L500.4100 ####[facility] [address] [place], [address] Eosinophils/100 WBC (Bld) 3.5 % Normal 0-5 [facility] Comment on above: Performed By: #### L 500.4050, L100.0100, L501.9520, L500.4100 ####[facility] [address] [place], [address] Erythrocyte distribution width (RBC) [Ratio] 13.4 % Normal 11.6-14.6 [facility] Comment on above: Performed By: #### L 500.4050, L100.0100, L501.9520, L500.4100 ####[facility] [address] [place], [address] Hematocrit (Bld) [Volume fraction] 39.7 % Normal 37-47 [facility] Comment on above: Performed By: #### L 500.4050, L100.0100, L501.9520, L500.4100 ####[facility] [address] [place], [address] Hemoglobin (Bld) [Mass/Vol] 12.2 g/dL Normal 12.0-15.0 [facility] Comment on above: Performed By: #### L 500.4050, L100.0100, L501.9520, L500.4100 ####[facility] [address] [place], [address] IG% 0.600 Normal 0.0-0.9 [facility] Comment on above: Result Comment: IG% - Immature Granulocytes (promyelocytes, myelocytes andmetamyelocytes) > 1% indicates that a LEFT SHIFT is Present. Performed By: #### L 500.4050, L100.0100, L501.9520, L500.4100 ####[facility] [address] [place], [address] Lymphocytes/100 WBC (Bld) 28.1 % Normal 19-41 [facility] Comment on above: Performed By: #### L 500.4050, L100.0100, L501.9520, L500.4100 ####[facility] [address] [place], [address] MCH (RBC) [Entitic mass] 31.8 pg Normal 27.0-32.0 [facility] Comment on above: Performed By: #### L 500.4050, L100.0100, L501.9520, L500.4100 ####[facility] [address] [place], [address] MCHC (RBC) [Mass/Vol] 30.7 g/dL Low 32-36 [facility] Comment on above: Performed By: #### L 500.4050, L100.0100, L501.9520, L500.4100 ####[facility] [address] [place], [address] MCV (RBC) [Entitic vol] 103.4 fL High 81-99 [facility] Comment on above: Performed By: #### L 500.4050, L100.0100, L501.9520, L500.4100 ####[facility] [address] [place], [address] Monocytes/100 WBC (Bld) 10.6 % High 0-10 [facility] Comment on above: Performed By: #### L 500.4050, L100.0100, L501.9520, L500.4100 ####[facility] [address] [place], [address] Neutrophils/100 WBC (Bld) 56.7 % Normal 47-70 [facility] Comment on above: Performed By: #### L 500.4050, L100.0100, L501.9520, L500.4100 ####[facility] [address] [place], [address] Nucleated RBC (Bld) [#/Vol] 0 10*3/uL Normal 0-5 [facility] Comment on above: Performed By: #### L 500.4050, L100.0100, L501.9520, L500.4100 ####[facility] [address] [place], [address] Platelet mean volume (Bld) [Entitic vol] 10.9 fL Normal 6.2-12.0 [facility] Comment on above: Performed By: #### L 500.4050, L100.0100, L501.9520, L500.4100 ####[facility] [address] [place], [address] Platelets (Bld) [#/Vol] 135 10*3/uL Low 150-450 [facility] Comment on above: Performed By: #### L 500.4050, L100.0100, L501.9520, L500.4100 ####[facility] [address] [place], [address] RBC (Bld) [#/Vol] 3.84 10*6/uL Low 4.2-5.4 [facility] Comment on above: Performed By: #### L 500.4050, L100.0100, L501.9520, L500.4100 ####[facility] [address] [place], [address] RDW SD 50.4 fl High 35.1-43.9 [facility] Comment on above: Performed By: #### L 500.4050, L100.0100, L501.9520, L500.4100 ####[facility] [address] [place], [address] WBC (Bld) [#/Vol] 10.9 10*3/uL Normal 4.4-11.0 [facility] Comment on above: Performed By: #### L 500.4050, L100.0100, L501.9520, L500.4100 ####[facility] [address] [place], [address] Comprehensive Metabolic Prof il 12-27-2023 Albumin [Mass/Vol] 2.8 g/dL Low 3.2-5.0 [facility] Comment on above: Performed By: #### L 500.4050, L100.0100, L501.9520, L500.4100 ####[facility] [address] [place], [address] Albumin/Globulin [Mass ratio] 0.8 {ratio} Low 0.9-2.4 [facility] Comment on above: Performed By: #### L 500.4050, L100.0100, L501.9520, L500.4100 ####[facility] [address] [place], [address] ALK P 92 U/L Normal 45-117 [facility] Comment on above: Performed By: #### L 500.4050, L100.0100, L501.9520, L500.4100 ####[facility] [address] [place], [address] ALT [Catalytic activity/Vol] 92 U/L High 13-56 [facility] Comment on above: Performed By: #### L 500.4050, L100.0100, L501.9520, L500.4100 ####[facility] [address] [place], [address] AST [Catalytic activity/Vol] 76 U/L High 15-37 [facility] Comment on above: Performed By: #### L 500.4050, L100.0100, L501.9520, L500.4100 ####[facility] [address] [place], [address] Bilirubin [Mass/Vol] 0.30 mg/dL Normal 0.20-1.00 [facility] Comment on above: Result Comment: For patients on eltrombopag therapy, use of Dimension [place] TBIL is not recommended. Performed By: #### L 500.4050, L100.0100, L501.9520, L500.4100 ####[facility] [address] [place], [address] BUN/CRE 41.0 RATIO High 10-20 [facility] Comment on above: Performed By: #### L 500.4050, L100.0100, L501.9520, L500.4100 ####[facility] [address] [place], [address] CA,Total 8.1 mg/dL Low 8.5-10.1 [facility] Comment on above: Performed By: #### L 500.4050, L100.0100, L501.9520, L500.4100 ####[facility] [address] [place], [address] Chloride [Moles/Vol] 106 mmol/L Normal 98-107 [facility] Comment on above: Performed By: #### L 500.4050, L100.0100, L501.9520, L500.4100 ####[facility] [address] [place], [address] CO2 [Moles/Vol] 33.0 mmol/L High 21.0-32.0 [facility] Comment on above: Performed By: #### L 500.4050, L100.0100, L501.9520, L500.4100 ####[facility] [address] [place], [address] Creatinine [Mass/Vol] 0.54 mg/dL Low 0.55-1.02 [facility] Comment on above: Result Comment: The validity of the calculated GFR GFRAA in patients over70 years has not been determined. Clinical correlation isessential. Performed By: #### L 500.4050, L100.0100, L501.9520, L500.4100 ####[facility] [address] [place], [address] ECRCL 175.01 ml/min Normal [facility] Comment on above: Performed By: #### L 500.4050, L100.0100, L501.9520, L500.4100 ####[facility] [address] [place], [address] EST GFR - AA 161 mL/min Normal >60 [facility] Comment on above: Result Comment: Afri can Bahraini GFR Calc Performed By: #### L 500.4050, L100.0100, L501.9520, L500.4100 ####[facility] [address] [place], [address] GAP 1 Low 5-15 [facility] Comment on above: Performed By: #### L 500.4050, L100.0100, L501.9520, L500.4100 ####[facility] [address] [place], [address] GFR/1.73 sq M.predicted among non-blacks MDRD (S/P/Bld) [Vol rate/Area] 133 mL/min/{1.73_m2} Normal >60 [facility] Comment on above: Result Comment: Non- GFR Calc Performed By: #### L 500.4050, L100.0100, L501.9520, L500.4100 ####[facility] [address] [place], [address] Globulin (S) [Mass/Vol] 3.4 g/dL Normal 2.2-4.2 [facility] Comment on above: Performed By: #### L 500.4050, L100.0100, L501.9520, L500.4100 ####[facility] [address] [place], [address] Glucose [Mass/Vol] 118 mg/dL High 74-106 [facility] Comment on above: Result Comment: Fast ing Glucose result from 100 to 125 mg/dLsuggests IMPAIRED HOMEOSTASIS per A.D.A. criteria. Performed By: #### L 500.4050, L100.0100, L501.9520, L500.4100 ####[facility] [address] [place], [address] Potassium [Moles/Vol] 4.1 mmol/L Normal 3.5-5.1 [facility] Comment on above: Performed By: #### L 500.4050, L100.0100, L501.9520, L500.4100 ####[facility] [address] [place], [address] Sodium [Moles/Vol] 141 mmol/L Normal 136-145 [facility] Comment on above: Performed By: #### L 500.4050, L100.0100, L501.9520, L500.4100 ####[facility] [address] [place], [address] T PROT 6.2 g/dL Low 6.4-8.2 [facility] Comment on above: Performed By: #### L 500.4050, L100.0100, L501.9520, L500.4100 ####[facility] [address] [place], [address] Urea nitrogen [Mass/Vol] 22 mg/dL High 7-18 [facility] Comment on above: Performed By: #### L 500.4050, L100.0100, L501.9520, L500.4100 ####[facility] [address] [place], [address] Consultation - Cardiologyon 12-27-2023 Consultation - Cardiology Normal [facility] Echo Complete W/ Contraston 12-27-2023 Echo Complete W/ Contrast Normal [facility] L501.4020on 12-27-2023 TROPONIN-I HS 256 pg/mL Invalid Interpretation Code 3.0-54.0 [facility] Comment on above: Order Comment: 'TROP ' Serial specimen #1, #2 or #3: 1 Result Comment: Crit ical Result(s) Called at: 09:38:31 12/27/2023 by:Renu Villatoro to Allan. Results read back by same. Please Note: New Test Units and Gender Specific Reference Ranges. For more information see Policy Stat Procedure [place] High Sensitivity Troponin (TNIH) and attachments. Performed By: #### L 501.4020 ####[facility] [address] [place], [address] Lipid Profileon 12-27-2023 Cholesterol [Mass/Vol] 112 mg/dL Normal 200 [facility] Comment on above: Result Comment: <200 mg/dL Desirable 200-240 mg/dL Borderline >240 mg/dL High Risk Performed By: #### L 500.4050, L100.0100, L501.9520, L500.4100 ####[facility] [address] [place], [address] Cholesterol in HDL [Mass/Vol] 52 mg/dL Normal [facility] Comment on above: Result Comment: The drugs N-Acetylcysteine and Metamizole may falselydepress this assay. Reference Range HDL <40 mg/dL Low HDL Cholesterol HDL >or= 60 mg/dL High HDL Cholesterol Performed By: #### L 500.4050, L100.0100, L501.9520, L500.4100 ####[facility] [address] [place], [address] Cholesterol in LDL [Mass/Vol] 47 mg/dL Normal 0-130 [facility] Comment on above: Performed By: #### L 500.4050, L100.0100, L501.9520, L500.4100 ####[facility] [address] [place], [address] Cholesterol in VLDL [Mass/Vol] 13 mg/dL Normal 5-40 [facility] Comment on above: Performed By: #### L 500.4050, L100.0100, L501.9520, L500.4100 ####[facility] [address] [place], [address] Triglyceride [Mass/Vol] 63 mg/dL Normal [facility] Comment on above: Result Comment: The drugs N-Acetylcysteine and Metamizole may falselydepress this assay.Serum Triglycerides Reference Interval Normal <150 mg/dL Borderline high 150 - 199 mg/dL High 200 - 499 mg/dL Very High > or = 500 mg/dL Performed By: #### L 500.4050, L100.0100, L501.9520, L500.4100 ####[facility] [address] [place], [address] Partial Thromboplast Timeon 12-27-2023 aPTT Coag (Bld) [Time] 47.5 s High 24.1-36.2 [facility] Comment on above: Performed By: #### L 300.4310 ####[facility] [address] [place], [address] aPTT Coag (Bld) [Time] 95.2 s Invalid Interpretation Code 24.1-36.2 [facility] Comment on above: Result Comment: CRIT ICAL VALUE CALLED TO [id number]/19/24 0143 Teresa Cardenas.RESULTS READ BACK BY SAME. Performed By: #### L 300.4310 ####[facility] [address] [place], [address] Thyroid Stim Hormone (TSH)on 12-27-2023 TSH 2.840 uIU/mL Normal 0.358-3.740 [facility] Comment on above: Performed By: #### L 500.4050, L100.0100, L501.9520, L500.4100 ####[facility] [address] [place], [address] 12 Lead EKGon 12-26-2023 12 Lead EKG Normal [facility] BNP,B-Type NATRIURETIC PEPTI Christa 12-26-2023 Natriuretic peptide B (Bld) [Mass/Vol] 1051.3 pg/mL High 0-100 [facility] Comment on above: Performed By: #### L 100.0100, L501.4020, L503.6005, L500.4050, L503.6620 ####[facility] [address] [place], [address] CBC W/Diff, Automatedon 12-08 Absolute Lymph 2.25 X10 3/uL Normal 0.83-4.51 [facility] Comment on above: Performed By: #### L 100.0100, L501.4020, L503.6005, L500.4050, L503.6620 ####[facility] [address] [place], [address] Absolute Neut 8.0 X10 3/uL High 2.0-7.7 [facility] Comment on above: Performed By: #### L 100.0100, L501.4020, L503.6005, L500.4050, L503.6620 ####[facility] [address] [place], [address] Basophils/100 WBC (Bld) 0.5 % Normal 0-1 [facility] Comment on above: Performed By: #### L 100.0100, L501.4020, L503.6005, L500.4050, L503.6620 ####[facility] [address] [place], [address] Eosinophils/100 WBC (Bld) 1.1 % Normal 0-5 [facility] Comment on above: Performed By: #### L 100.0100, L501.4020, L503.6005, L500.4050, L503.6620 ####[facility] [address] [place], [address] Erythrocyte distribution width (RBC) [Ratio] 13.4 % Normal 11.6-14.6 [facility] Comment on above: Performed By: #### L 100.0100, L501.4020, L503.6005, L500.4050, L503.6620 ####[facility] [address] [place], [address] Hematocrit (Bld) [Volume fraction] 45.6 % Normal 37-47 [facility] Comment on above: Performed By: #### L 100.0100, L501.4020, L503.6005, L500.4050, L503.6620 ####[facility] [address] [place], [address] Hemoglobin (Bld) [Mass/Vol] 14.3 g/dL Normal 12.0-15.0 [facility] Comment on above: Performed By: #### L 100.0100, L501.4020, L503.6005, L500.4050, L503.6620 ####[facility] [address] [place], [address] IG% 0.600 Normal 0.0-0.9 [facility] Comment on above: Result Comment: IG% - Immature Granulocytes (promyelocytes, myelocytes andmetamyelocytes) > 1% indicates that a LEFT SHIFT is Present. Performed By: #### L 100.0100, L501.4020, L503.6005, L500.4050, L503.6620 ####[facility] [address] [place], [address] Lymphocytes/100 WBC (Bld) 19.1 % Normal 19-41 [facility] Comment on above: Performed By: #### L 100.0100, L501.4020, L503.6005, L500.4050, L503.6620 ####[facility] [address] [place], [address] MCH (RBC) [Entitic mass] 32.2 pg High 27.0-32.0 [facility] Comment on above: Performed By: #### L 100.0100, L501.4020, L503.6005, L500.4050, L503.6620 ####[facility] [address] [place], [address] MCHC (RBC) [Mass/Vol] 31.4 g/dL Low 32-36 [facility] Comment on above: Performed By: #### L 100.0100, L501.4020, L503.6005, L500.4050, L503.6620 ####[facility] [address] [place], [address] MCV (RBC) [Entitic vol] 102.7 fL High 81-99 [facility] Comment on above: Performed By: #### L 100.0100, L501.4020, L503.6005, L500.4050, L503.6620 ####[facility] [address] [place], [address] Monocytes/100 WBC (Bld) 10.5 % High 0-10 [facility] Comment on above: Performed By: #### L 100.0100, L501.4020, L503.6005, L500.4050, L503.6620 ####[facility] [address] [place], [address] Neutrophils/100 WBC (Bld) 68.2 % Normal 47-70 [facility] Comment on above: Performed By: #### L 100.0100, L501.4020, L503.6005, L500.4050, L503.6620 ####[facility] [address] [place], [address] Nucleated RBC (Bld) [#/Vol] 0.2 10*3/uL Normal 0-5 [facility] Comment on above: Performed By: #### L 100.0100, L501.4020, L503.6005, L500.4050, L503.6620 ####[facility] [address] [place], [address] Platelet mean volume (Bld) [Entitic vol] 11.1 fL Normal 6.2-12.0 [facility] Comment on above: Performed By: #### L 100.0100, L501.4020, L503.6005, L500.4050, L503.6620 ####[facility] [address] [place], [address] Platelets (Bld) [#/Vol] 163 10*3/uL Normal 150-450 [facility] Comment on above: Performed By: #### L 100.0100, L501.4020, L503.6005, L500.4050, L503.6620 ####[facility] [address] [place], [address] RBC (Bld) [#/Vol] 4.44 10*6/uL Normal 4.2-5.4 [facility] Comment on above: Performed By: #### L 100.0100, L501.4020, L503.6005, L500.4050, L503.6620 ####[facility] [address] [place], [address] RDW SD 50.9 fl High 35.1-43.9 [facility] Comment on above: Performed By: #### L 100.0100, L501.4020, L503.6005, L500.4050, L503.6620 ####[facility] [address] [place], [address] WBC (Bld) [#/Vol] 11.8 10*3/uL High 4.4-11.0 [facility] Comment on above: Performed By: #### L 100.0100, L501.4020, L503.6005, L500.4050, L503.6620 ####[facility] [address] [place], [address] Chest PA and Lateralon 12-25 Chest PA and Lateral Normal [facility] Comprehensive Metabolic Prof ilon 12-26-2023 Albumin [Mass/Vol] 3.1 g/dL Low 3.2-5.0 [facility] Comment on above: Order Comment: 'TROP ' Serial specimen #1, #2 or #3: 1 Performed By: #### L 100.0100, L501.4020, L503.6005, L500.4050, L503.6620 ####[facility] [address] [place], [address] Albumin/Globulin [Mass ratio] 0.8 {ratio} Low 0.9-2.4 [facility] Comment on above: Order Comment: 'TROP ' Serial specimen #1, #2 or #3: 1 Performed By: #### L 100.0100, L501.4020, L503.6005, L500.4050, L503.6620 ####[facility] [address] [place], [address] ALK P 101 U/L Normal 45-117 [facility] Comment on above: Order Comment: 'TROP ' Serial specimen #1, #2 or #3: 1 Performed By: #### L 100.0100, L501.4020, L503.6005, L500.4050, L503.6620 ####[facility] [address] [place], [address] ALT [Catalytic activity/Vol] 65 U/L High 13-56 [facility] Comment on above: Order Comment: 'TROP ' Serial specimen #1, #2 or #3: 1 Performed By: #### L 100.0100, L501.4020, L503.6005, L500.4050, L503.6620 ####[facility] [address] [place], [address] AST [Catalytic activity/Vol] 69 U/L High 15-37 [facility] Comment on above: Order Comment: 'TROP ' Serial specimen #1, #2 or #3: 1 Result Comment: Mode rate Hemolysis, Result may be falsely increased. Performed By: #### L 100.0100, L501.4020, L503.6005, L500.4050, L503.6620 ####[facility] [address] [place], [address] Bilirubin [Mass/Vol] 0.30 mg/dL Normal 0.20-1.00 [facility] Comment on above: Order Comment: 'TROP ' Serial specimen #1, #2 or #3: 1 Result Comment: For patients on eltrombopag therapy, use of Dimension [place] TBIL is not recommended. Performed By: #### L 100.0100, L501.4020, L503.6005, L500.4050, L503.6620 ####[facility] [address] [place], [address] BUN/CRE 32.8 RATIO High 10-20 [facility] Comment on above: Order Comment: 'TROP ' Serial specimen #1, #2 or #3: 1 Performed By: #### L 100.0100, L501.4020, L503.6005, L500.4050, L503.6620 ####[facility] [address] [place], [address] CA,Total 8.6 mg/dL Normal 8.5-10.1 [facility] Comment on above: Order Comment: 'TROP ' Serial specimen #1, #2 or #3: 1 Performed By: #### L 100.0100, L501.4020, L503.6005, L500.4050, L503.6620 ####[facility] [address] [place], [address] Chloride [Moles/Vol] 108 mmol/L High 98-107 [facility] Comment on above: Order Comment: 'TROP ' Serial specimen #1, #2 or #3: 1 Performed By: #### L 100.0100, L501.4020, L503.6005, L500.4050, L503.6620 ####[facility] [address] [place], [address] CO2 [Moles/Vol] 30.0 mmol/L Normal 21.0-32.0 [facility] Comment on above: Order Comment: 'TROP ' Serial specimen #1, #2 or #3: 1 Performed By: #### L 100.0100, L501.4020, L503.6005, L500.4050, L503.6620 ####[facility] [address] [place], [address] Creatinine [Mass/Vol] 0.91 mg/dL Normal 0.55-1.02 [facility] Comment on above: Order Comment: 'TROP ' Serial specimen #1, #2 or #3: 1 Result Comment: The validity of the calculated GFR GFRAA in patients over70 years has not been determined. Clinical correlation isessential. Performed By: #### L 100.0100, L501.4020, L503.6005, L500.4050, L503.6620 ####[facility] [address] [place], [address] ECRCL 104.50 ml/min Normal [facility] Comment on above: Order Comment: 'TROP ' Serial specimen #1, #2 or #3: 1 Performed By: #### L 100.0100, L501.4020, L503.6005, L500.4050, L503.6620 ####[facility] [address] [place], [address] EST GFR - AA 87 mL/min Normal >60 [facility] Comment on above: Order Comment: 'TROP ' Serial specimen #1, #2 or #3: 1 Result Comment: Afri can Bahraini GFR Calc Performed By: #### L 100.0100, L501.4020, L503.6005, L500.4050, L503.6620 ####[facility] [address] [place], [address] GAP 3 Low 5-15 [facility] Comment on above: Order Comment: 'TROP ' Serial specimen #1, #2 or #3: 1 Performed By: #### L 100.0100, L501.4020, L503.6005, L500.4050, L503.6620 ####[facility] [address] [place], [address] GFR/1.73 sq M.predicted among non-blacks MDRD (S/P/Bld) [Vol rate/Area] 72 mL/min/{1.73_m2} Normal >60 [facility] Comment on above: Order Comment: 'TROP ' Serial specimen #1, #2 or #3: 1 Result Comment: Non- GFR Calc Performed By: #### L 100.0100, L501.4020, L503.6005, L500.4050, L503.6620 ####[facility] [address] [place], [address] Globulin (S) [Mass/Vol] 3.7 g/dL Normal 2.2-4.2 [facility] Comment on above: Order Comment: 'TROP ' Serial specimen #1, #2 or #3: 1 Performed By: #### L 100.0100, L501.4020, L503.6005, L500.4050, L503.6620 ####[facility] [address] [place], [address] Glucose [Mass/Vol] 99 mg/dL Normal 74-106 [facility] Comment on above: Order Comment: 'TROP ' Serial specimen #1, #2 or #3: 1 Performed By: #### L 100.0100, L501.4020, L503.6005, L500.4050, L503.6620 ####[facility] [address] [place], [address] Potassium [Moles/Vol] 5.4 mmol/L High 3.5-5.1 [facility] Comment on above: Order Comment: 'TROP ' Serial specimen #1, #2 or #3: 1 Result Comment: Mode rate Hemolysis, Result may be falsely increased. Performed By: #### L 100.0100, L501.4020, L503.6005, L500.4050, L503.6620 ####[facility] [address] [place], [address] Sodium [Moles/Vol] 140 mmol/L Normal 136-145 [facility] Comment on above: Order Comment: 'TROP ' Serial specimen #1, #2 or #3: 1 Performed By: #### L 100.0100, L501.4020, L503.6005, L500.4050, L503.6620 ####[facility] [address] [place], [address] T PROT 6.8 g/dL Normal 6.4-8.2 [facility] Comment on above: Order Comment: 'TROP ' Serial specimen #1, #2 or #3: 1 Performed By: #### L 100.0100, L501.4020, L503.6005, L500.4050, L503.6620 ####[facility] [address] [place], [address] Urea nitrogen [Mass/Vol] 30 mg/dL High 7-18 [facility] Comment on above: Order Comment: 'TROP ' Serial specimen #1, #2 or #3: 1 Performed By: #### L 100.0100, L501.4020, L503.6005, L500.4050, L503.6620 ####[facility] [address] [place], [address] Emergency Department Summary on 12-26-2023 Emergency Department Summary Normal [facility] H AND P Exam - Hospitaliston 12-26-2023 H&P Exam - Hospitalist Normal [facility] L501.4020on 12-26-2023 TROPONIN-I HS 771 pg/mL Invalid Interpretation Code 3.0-54.0 [facility] Comment on above: Order Comment: 'TROP ' Serial specimen #1, #2 or #3: 1 Result Comment: Crit ical Result(s) Called at: 18:57:41 12/26/2023 by:Tiffanie Patten to [facility]. Results read back by same. Please Note: New Test Units and Gender Specific Reference Ranges. For more information see Policy Stat Procedure [place] High Sensitivity Troponin (TNIH) and attachments. Performed By: #### L 100.0100, L501.4020, L503.6005, L500.4050, L503.6620 ####[facility] [address] [place], [address] Lactic Acidon 12-26-2023 Lactate [Moles/Vol] 1.3 mmol/L Normal 0.4-1.9 [facility] Comment on above: Order Comment: Y Performed By: #### L 100.0100, L501.4020, L503.6005, L500.4050, L503.6620 ####[facility] [address] [place], [address] M100.678on 12-26-2023 M100.678 Pending SARS-CoV-2 (COVID 19) Negative INFLUENZA A Negative INFLUENZA B Negative RSV PCR Negative Normal [facility] Comment on above: Performed By: #### M 100.678 ####[facility] [address] [place], [address] Magnesiumon 12-26-2023 Magnesium [Mass/Vol] 2.0 mg/dL Normal 1.6-2.6 [facility] Comment on above: Order Comment: Comme nts: may add to ED labs Result Comment: Mode rate Hemolysis, Result may be falsely increased. Performed By: #### L 509.7000, L300.3900, L501.5200 ####[facility] [address] [place], [address] Partial Thromboplast Timeon 12-26-2023 aPTT Coag (Bld) [Time] 25.0 s Normal 24.1-36.2 [facility] Comment on above: Performed By: #### L 300.3900, L300.4310 ####[facility] [address] [place], [address] Procalcitoninon 12-26-2023 Procalcitonin 0.12 ng/mL High 0.00-0.09 [facility] Comment on above: Result Comment: A [...] Performed By: #### L 509.7000, L300.3900, L501.5200 ####[facility] [address] [place], [address] Prothrombin Time w/INRon INR Coag (PPP) [Relative time] 1.1 {INR} Normal [facility] Comment on above: Performed By: #### L 300.3900, L300.4310 ####[facility] [address] [place], [address] PT Coag (PPP) [Time] 14.0 s Normal 11.7-14.9 [facility] Comment on above: Performed By: #### L 300.3900, L300.4310 ####[facility] [address] [place], [address] INR Normal [facility] Comment on above: Result Comment: DUPL ICATE, SEE SPECIMEN [id number] Performed By: #### L 509.7000, L300.3900, L501.5200 ####[facility] [address] [place], [address] PROTIME Normal 11.7-14.9 [facility] Comment on above: Result Comment: DUPL ICATE, SEE SPECIMEN [id number] Performed By: #### L 509.7000, L300.3900, L501.5200 ####[facility] [address] [place], [address] Venous Blood Gason 4 Blood Gas Type SATISH Normal [facility] Comment on above: Performed By: #### L 9000.0810 ####[facility] [address] [place], [address] CO2 [Moles/Vol] 32 mmol/L Normal 23-33 [facility] Comment on above: Performed By: #### L 9000.0810 ####[facility] [address] [place], [address] FI02 2.0 Normal [facility] Comment on above: Performed By: #### L 9000.0810 ####[facility] [address] [place], [address] HCO3 (Bld) [Moles/Vol] 30 mmol/L High 22-26 [facility] Comment on above: Performed By: #### L 9000.0810 ####[facility] [address] [place], [place], [address] O2 Delivery Dev Cannula Normal [facility] Comment on above: Performed By: #### L 9000.0810 ####[facility] [address] [place], [address] SITE Not entered Normal [facility] Comment on above: Performed By: #### L 9000.0810 ####[facility] [address] [place], [address] VBG BE 3 mmol/L Normal -1.0-3.5 [facility] Comment on above: Performed By: #### L 9000.0810 ####[facility] [address] [place], [address] VBG pCO2 68.2 mmHg High 41-51 [facility] Comment on above: Performed By: #### L 9000.0810 ####[facility] [address] [place], [address] VBG pH 7.25 Low 7.32-7.42 [facility] Comment on above: Performed By: #### L 9000.0810 ####[facility] [address] [place], [address] VBG PO2 28 mmHg Normal 25-40 [facility] Comment on above: Performed By: #### L 9000.0810 ####[facility] [address] [place], [address] VBG SO2 42 Low 50-70 [facility] Comment on above: Performed By: #### L 9000.0810 ####[facility] [address] [place], [address] [facility] 12-25-2023 [facility] Telephone (INTMWS) SIA ABDUL ([id number]) 1980 F Date Time Provider Department 12/25/23 MARILEE THAKUR During your visit today, we recorded the following information about you: Annie Brand RN 12/25/2023 4:30 PM Addendum Enrique, nurse @ [facility] calling to let provider know patient weighed 291.1 # this morning. She says patient does not have increase in leg edema nor shortness of breath. Last weight reported was 283# on 12/17/23. Enrique states patient is currently taking Lasix 40 mg daily and Potassium 20 mEq daily. Patient was in [facility] ER on 12/21/23 with SOB. Patient was in [facility] ER again on 12/23/23 for viral gastroenteritis. Patient scheduled for ER F/U with PCP on 01/02/24. RODRÍGUEZ Wang Joy, APRN.BULB INSPECTOR 12/26/2023 11:41 AM Signed As previous message - she needs seen earlier then scheduled. Thank you Mika Kaplan APRN.BULB INSPECTOR María Avila MA 12/26/2023 12:36 PM Signed [...] 2 SPRAYS IN EACH NOSTRIL DAILY - Pijke-0-OCL-EPA-Fish Oil 1,000 mg (120 mg-180 mg) cap [...] included)... Normal [facility] CBC W/Diff, Automatedon 10- Absolute Lymph 2.11 X10 3/uL Normal 0.83-4.51 [facility] Comment on above: Performed By: #### L 500.4050, L100.0100 ####[facility] [address] [place], [place], [address] Absolute Neut 4.8 X10 3/uL Normal 2.0-7.7 [facility] Comment on above: Performed By: #### L 500.4050, L100.0100 ####[facility] [address] [place], [address] Basophils/100 WBC (Bld) 0.4 % Normal 0-1 [facility] Comment on above: Performed By: #### L 500.4050, L100.0100 ####[facility] [address] [place], [address] Eosinophils/100 WBC (Bld) 3.2 % Normal 0-5 [facility] Comment on above: Performed By: #### L 500.4050, L100.0100 ####[facility] [address] [place], [address] Erythrocyte distribution width (RBC) [Ratio] 13.4 % Normal 11.6-14.6 [facility] Comment on above: Performed By: #### L 500.4050, L100.0100 ####[facility] [address] [place], [address] Hematocrit (Bld) [Volume fraction] 45.6 % Normal 37-47 [facility] Comment on above: Performed By: #### L 500.4050, L100.0100 ####[facility] [address] [place], [address] Hemoglobin (Bld) [Mass/Vol] 13.5 g/dL Normal 12.0-15.0 [facility] Comment on above: Performed By: #### L 500.4050, L100.0100 ####[facility] [address] [place], [address] IG% 0.200 Normal 0.0-0.9 [facility] Comment on above: Result Comment: IG% - Immature Granulocytes (promyelocytes, myelocytes andmetamyelocytes) > 1% indicates that a LEFT SHIFT is Present. Performed By: #### L 500.4050, L100.0100 ####[facility] [address] [place], [address] Lymphocytes/100 WBC (Bld) 24.9 % Normal 19-41 [facility] Comment on above: Performed By: #### L 500.4050, L100.0100 ####[facility] [address] [place], [address] MCH (RBC) [Entitic mass] 30.6 pg Normal 27.0-32.0 [facility] Comment on above: Performed By: #### L 500.4050, L100.0100 ####[facility] [address] [place], [address] MCHC (RBC) [Mass/Vol] 29.6 g/dL Low 32-36 [facility] Comment on above: Performed By: #### L 500.4050, L100.0100 ####[facility] [address] [place], [address] MCV (RBC) [Entitic vol] 103.4 fL High 81-99 [facility] Comment on above: Performed By: #### L 500.4050, L100.0100 ####[facility] [address] [place], [address] Monocytes/100 WBC (Bld) 14.5 % High 0-10 [facility] Comment on above: Performed By: #### L 500.4050, L100.0100 ####[facility] [address] [place], [address] Neutrophils/100 WBC (Bld) 56.8 % Normal 47-70 [facility] Comment on above: Performed By: #### L 500.4050, L100.0100 ####[facility] [address] [place], [address] Nucleated RBC (Bld) [#/Vol] 0 10*3/uL Normal 0-5 [facility] Comment on above: Performed By: #### L 500.4050, L100.0100 ####[facility] [address] [place], [address] Platelet mean volume (Bld) [Entitic vol] 10.6 fL Normal 6.2-12.0 [facility] Comment on above: Performed By: #### L 500.4050, L100.0100 ####[facility] [address] [place], [address] Platelets (Bld) [#/Vol] 176 10*3/uL Normal 150-450 [facility] Comment on above: Performed By: #### L 500.4050, L100.0100 ####[facility] [address] [place], [address] RBC (Bld) [#/Vol] 4.41 10*6/uL Normal 4.2-5.4 [facility] Comment on above: Performed By: #### L 500.4050, L100.0100 ####[facility] [address] [place], [address] RDW SD 51.3 fl High 35.1-43.9 [facility] Comment on above: Performed By: #### L 500.4050, L100.0100 ####[facility] [address] [place], [address] WBC (Bld) [#/Vol] 8.5 10*3/uL Normal 4.4-11.0 [facility] Comment on above: Performed By: #### L 500.4050, L100.0100 ####[facility] [address] [place], [address] Comprehensive Metabolic Prof ilon 12-23-2023 Albumin [Mass/Vol] 3.3 g/dL Normal 3.2-5.0 [facility] Comment on above: Performed By: #### L 500.4050, L100.0100 ####[facility] [address] [place], [address] Albumin/Globulin [Mass ratio] 0.8 {ratio} Low 0.9-2.4 [facility] Comment on above: Performed By: #### L 500.4050, L100.0100 ####[facility] [address] [place], [address] ALK P 98 U/L Normal 45-117 [facility] Comment on above: Performed By: #### L 500.4050, L100.0100 ####[facility] [address] [place], [address] ALT [Catalytic activity/Vol] 27 U/L Normal 13-56 [facility] Comment on above: Performed By: #### L 500.4050, L100.0100 ####[facility] [address] [place], [address] AST [Catalytic activity/Vol] 26 U/L Normal 15-37 [facility] Comment on above: Result Comment: Mode rate Hemolysis, Result may be falsely increased. Performed By: #### L 500.4050, L100.0100 ####[facility] [address] [place], [address] Bilirubin [Mass/Vol] 0.50 mg/dL Normal 0.20-1.00 [facility] Comment on above: Result Comment: For patients on eltrombopag therapy, use of Dimension [place] TBIL is not recommended. Performed By: #### L 500.4050, L100.0100 ####[facility] [address] [place], [address] BUN/CRE 33.1 RATIO High 10-20 [facility] Comment on above: Performed By: #### L 500.4050, L100.0100 ####[facility] [address] [place], [address] CA,Total 9.6 mg/dL Normal 8.5-10.1 [facility] Comment on above: Performed By: #### L 500.4050, L100.0100 ####[facility] [address] [place], [address] Chloride [Moles/Vol] 104 mmol/L Normal 98-107 [facility] Comment on above: Performed By: #### L 500.4050, L100.0100 ####[facility] [address] [place], [address] CO2 [Moles/Vol] 32.0 mmol/L Normal 21.0-32.0 [facility] Comment on above: Performed By: #### L 500.4050, L100.0100 ####[facility] [address] [place], [address] Creatinine [Mass/Vol] 0.60 mg/dL Normal 0.55-1.02 [facility] Comment on above: Result Comment: The validity of the calculated GFR GFRAA in patients over70 years has not been determined. Clinical correlation isessential. Performed By: #### L 500.4050, L100.0100 ####[facility] [address] [place], [address] ECRCL 156.70 ml/min Normal [facility] Comment on above: Performed By: #### L 500.4050, L100.0100 ####[facility] [address] [place], [address] EST GFR - AA 140 mL/min Normal >60 [facility] Comment on above: Result Comment: Afri can [place]raini GFR Calc Performed By: #### L 500.4050, L100.0100 ####[facility] [address] [place], [address] GAP 2 Low 5-15 [facility] Comment on above: Performed By: #### L 500.4050, L100.0100 ####[facility] [address] [place], [address] GFR/1.73 sq M.predicted among non-blacks MDRD (S/P/Bld) [Vol rate/Area] 116 mL/min/{1.73_m2} Normal >60 [facility] Comment on above: Result Comment: Non- GFR Calc Performed By: #### L 500.4050, L100.0100 ####[facility] [address] [place], [address] Globulin (S) [Mass/Vol] 4.1 g/dL Normal 2.2-4.2 [facility] Comment on above: Performed By: #### L 500.4050, L100.0100 ####[facility] [address] [place], [address] Glucose [Mass/Vol] 88 mg/dL Normal 74-106 [facility] Comment on above: Performed By: #### L 500.4050, L100.0100 ####[facility] [address] [place], [address] Potassium [Moles/Vol] 4.6 mmol/L Normal 3.5-5.1 [facility] Comment on above: Result Comment: Mode rate Hemolysis, Result may be falsely increased. Performed By: #### L 500.4050, L100.0100 ####[facility] [address] [place], [address] Sodium [Moles/Vol] 138 mmol/L Normal 136-145 [facility] Comment on above: Performed By: #### L 500.4050, L100.0100 ####[facility] [address] [place], [address] T PROT 7.4 g/dL Normal 6.4-8.2 [facility] Comment on above: Performed By: #### L 500.4050, L100.0100 ####[facility] [address] [place], [place], [address] Urea nitrogen [Mass/Vol] 20 mg/dL High 7-18 [facility] Comment on above: Performed By: #### L 500.4050, L100.0100 ####[facility] [address] [place], [place], [address] Emergency Department Summary on 12-23-2023 Emergency Department Summary Normal [facility] SIA ABDUL ([id number]) 1980 F Date Time Provider Department 12/22/23 MARILEE THAKUR INTMWS During your visit today, we recorded the following information about you: Annie Brand RN 12/22/2023 1:33 PM Signed Pharmacist @ [facility] calling to clarify orders for [...] Please review and advise. RODRÍGUEZ Lopez Joy, APRN.BULB INSPECTOR 12/22/2023 1:41 PM Signed She is supposed to be taking both short term. Is there a way to get her in earlier then in 10 days? Thank you Mika Kaplan APRN.BULB INSPECTOR María Avila MA 12/22/2023 1:49 PM Signed Pharmacist notified. Allergies As of Date: 12/22/2023 Noted Allergy Reaction BEE STING 02/28/2023 10 - Anaphylaxis DILANTIN (PHENYTOIN SODIUM EXTEND*01/28/2006 Date Reviewed: 11/18/2023 Reviewed by: Aaliyah Gonzalez MA - Fully Assessed Reason for Visit: Medication Question [3008] Prescriptions as of 12/22/2023 - furosemide (LASIX) [...] 2 SPRAYS IN EACH NOSTRIL DAILY - Qalhq-8-FNK-EPA-Fish Oil 1,000 mg (120 mg-180 mg) cap [...] included)... Normal [facility] .Auto Diffon 12-21-2023 Basophil, Absolute 0.0 10 3/mcL Normal 0.0-0.2 [facility] Comment on above: Performed By: #### M DW, CBC, ANEU, GFR, PBNP, BMP, TROPHS, MG, ADIFF #### [address] [address] Basophils/100 WBC (Bld) 0.3 % Normal 0.0-2.5 [facility] Comment on above: Performed By: #### M DW, CBC, ANEU, GFR, PBNP, BMP, TROPHS, MG, ADIFF #### [address] [address] Eosinophil, Absolute 0.2 10 3/mcL Normal 0.0-0.7 [facility] Comment on above: Performed By: #### M DW, CBC, ANEU, GFR, PBNP, BMP, TROPHS, MG, ADIFF #### [address] [address] Eosinophils/100 WBC (Bld) 1.9 % Normal 0.0-7.0 [facility] Comment on above: Performed By: #### M DW, CBC, ANEU, GFR, PBNP, BMP, TROPHS, MG, ADIFF #### [address] [address] Lymphocyte, Absolute 2.0 10 3/mcL Normal 0.9-4.3 [facility] Comment on above: Performed By: #### M DW, CBC, ANEU, GFR, PBNP, BMP, TROPHS, MG, ADIFF #### [address] [address] Lymphocytes/100 WBC (Bld) 17.4 % Low 20.0-40.0 [facility] Comment on above: Performed By: #### M DW, CBC, ANEU, GFR, PBNP, BMP, TROPHS, MG, ADIFF #### [address] [address] Monocyte, Absolute 1.2 10 3/mcL Normal 0.1-1.4 [facility] Comment on above: Performed By: #### M DW, CBC, ANEU, GFR, PBNP, BMP, TROPHS, MG, ADIFF #### [address] [address] Monocytes/100 WBC (Bld) 10.5 % Normal 2.0-13.0 [facility] Comment on above: Performed By: #### M DW, CBC, ANEU, GFR, PBNP, BMP, TROPHS, MG, ADIFF #### [address] [address] Neutrophils/100 WBC (Bld) 69.9 % Normal 50.0-75.0 [facility] Comment on above: Performed By: #### M DW, CBC, ANEU, GFR, PBNP, BMP, TROPHS, MG, ADIFF #### [address] [address] .GFRon 12-21-2023 GFR 169 ml/min/1.73sqm Normal [facility] Comment on above: Result Comment: GFR [...] 15 mL/min/1.73 square meters Performed By: #### M DW, CBC, ANEU, GFR, PBNP, BMP, TROPHS, MG, ADIFF #### [address] [address] GFR Non- 139 ml/min/1.73sqm Normal [facility] Comment on above: Result Comment: GFR [...] 15 mL/min/1.73 square meters Performed By: #### M DW, CBC, ANEU, GFR, PBNP, BMP, TROPHS, MG, ADIFF #### [address] [address] .MDWon 12-21-2023 Monocyte Distribution Width 20.26 High 0.00-20.00 [facility] Comment on above: Result Comment: For adults in ED, MDW>20.0 may be associated with a higher risk of sepsis during the first 12hrs of hospital admission Performed By: #### M DW, CBC, ANEU, GFR, PBNP, BMP, TROPHS, MG, ADIFF #### [address] [address] .NEUABSon 12-21-2023 Neutrophil, Absolute 8.1 10 3/mcL Normal 2.3-8.1 [facility] Comment on above: Performed By: #### M DW, CBC, ANEU, GFR, PBNP, BMP, TROPHS, MG, ADIFF #### [address] [address] BMPon 12-21-2023 BUN/Creatinine Ratio 31 ratio High 7-27 [facility] Comment on above: Performed By: #### M DW, CBC, ANEU, GFR, PBNP, BMP, TROPHS, MG, ADIFF #### [address] [place], [place] [address] Calcium [Mass/Vol] 9.1 mg/dL Normal 8.4-10.2 [facility] Comment on above: Performed By: #### M DW, CBC, ANEU, GFR, PBNP, BMP, TROPHS, MG, ADIFF #### [address] [address] Chloride [Moles/Vol] 104 mmol/L Normal 98-107 [facility] Comment on above: Performed By: #### M DW, CBC, ANEU, GFR, PBNP, BMP, TROPHS, MG, ADIFF #### [address] [address] CO2 [Moles/Vol] 34 mmol/L High 22-29 [facility] Comment on above: Performed By: #### M DW, CBC, ANEU, GFR, PBNP, BMP, TROPHS, MG, ADIFF #### [address] [address] Creatinine [Mass/Vol] 0.49 mg/dL Low 0.55-1.02 [facility] Comment on above: Result Comment: Test ing performed on Relatient Dimension EXL analyzer using a modified kinetic Melanie technique. Performed By: #### M DW, CBC, ANEU, GFR, PBNP, BMP, TROPHS, MG, ADIFF #### [address] [address] Electrolyte Balance 1.0 mEq/L Low 4.0-15.0 [facility] Comment on above: Performed By: #### M DW, CBC, ANEU, GFR, PBNP, BMP, TROPHS, MG, ADIFF #### [address] [address] Glucose [Mass/Vol] 96 mg/dL Normal 70-105 [facility] Comment on above: Performed By: #### M DW, CBC, ANEU, GFR, PBNP, BMP, TROPHS, MG, ADIFF #### [address] [address] Potassium [Moles/Vol] 4.7 mmol/L Normal 3.5-5.1 [facility] Comment on above: Performed By: #### M DW, CBC, ANEU, GFR, PBNP, BMP, TROPHS, MG, ADIFF #### [address] [address] Sodium [Moles/Vol] 139 mmol/L Normal 136-145 [facility] Comment on above: Performed By: #### M DW, CBC, ANEU, GFR, PBNP, BMP, TROPHS, MG, ADIFF #### [place] [address] Urea nitrogen [Mass/Vol] 15 mg/dL Normal 7-18 [facility] Comment on above: Performed By: #### M DW, CBC, ANEU, GFR, PBNP, BMP, TROPHS, MG, ADIFF #### [place] [address] CBCon 12-21-2023 Erythrocyte distribution width (RBC) [Ratio] 14.4 % Normal 11.5-15.5 [facility] Comment on above: Performed By: #### M DW, CBC, ANEU, GFR, PBNP, BMP, TROPHS, MG, ADIFF #### [address] [address] Hematocrit (Bld) [Volume fraction] 39.3 % Normal 34.0-46.0 [facility] Comment on above: Performed By: #### M DW, CBC, ANEU, GFR, PBNP, BMP, TROPHS, MG, ADIFF #### [place] [address] Hgb 12.6 G/dL Normal 12.0-16.0 [facility] Comment on above: Performed By: #### M DW, CBC, ANEU, GFR, PBNP, BMP, TROPHS, MG, ADIFF #### [place] [address] MCH (RBC) [Entitic mass] 32.2 pg Normal 27.0-33.0 [facility] Comment on above: Performed By: #### M DW, CBC, ANEU, GFR, PBNP, BMP, TROPHS, MG, ADIFF #### [address] [place] [address] MCHC 32.1 G/dL Normal 32.0-36.0 [facility] Comment on above: Performed By: #### M DW, CBC, ANEU, GFR, PBNP, BMP, TROPHS, MG, ADIFF #### [address] [address] MCV (RBC) [Entitic vol] 100.2 fL High 80.0-99.0 [facility] Comment on above: Performed By: #### M DW, CBC, ANEU, GFR, PBNP, BMP, TROPHS, MG, ADIFF #### [address] [address] Platelet 147 10 3/mcL Low 150-450 [facility] Comment on above: Performed By: #### M DW, CBC, ANEU, GFR, PBNP, BMP, TROPHS, MG, ADIFF #### [place] [address] Platelet mean volume (Bld) [Entitic vol] 8.8 fL Normal 6.6-10.5 [facility] Comment on above: Performed By: #### M DW, CBC, ANEU, GFR, PBNP, BMP, TROPHS, MG, ADIFF #### [address] [address] RBC 3.92 10 6/mcL Low 4.10-5.30 [facility] Comment on above: Performed By: #### M DW, CBC, ANEU, GFR, PBNP, BMP, TROPHS, MG, ADIFF #### [address] [address] WBC 11.6 10 3/mcL High 4.5-10.8 [facility] Comment on above: Performed By: #### M DW, CBC, ANEU, GFR, PBNP, BMP, TROPHS, MG, ADIFF #### [address] [address] LABORATORYOrdered By: SYSTEM SYSTEM on 12-21-2023 Troponin I.cardiac DL <= 0.01 ng/mL [Mass/Vol] 22 ng/L Normal 0 - 51 ng/L AO ADM SS Comment on above: Interpretive Data: H igh Sensitive Troponin I Reference Ranges: Female: 0-51 ng/L Male: 0-76 ng/L Testing performed on [employer] EXGetNotes using a homogeneous sandwich chemiluminescent immunoassay based on Y[employer] technology. Basophils (Bld) [#/Vol] 0.0 103/mcL Normal [...] ng/L Male: 0-76 ng/L Testing performed on [employer] Presta using a homogeneous sandwich chemiluminescent immunoassay based on Yumm[employer] technology. Urea nitrogen [Mass/Vol] 15 mg/dL Normal 7 - 18 mg/dL AO ADM SS Urea nitrogen/Creatinine [Mass ratio] 31 ratio High 7 - 27 ratio AO ADM SS WBC (Bld) [#/Vol] 11.6 103/mcL High 4.5 - 10.8 10^3/mcL AO Workflow SS MGon 12-21-2023 Magnesium [Mass/Vol] 1.9 mg/dL Normal 1.8-2.4 [facility] Comment on above: Performed By: #### M DW, CBC, ANEU, GFR, PBNP, BMP, TROPHS, MG, ADIFF #### [id number] [place], [place] [address] PBNPon 12-21-2023 Natriuretic peptide B (Bld) [Mass/Vol] 449 pg/mL High 0-125 [facility] Comment on above: Result Comment: NT-p roBNP results of less than 300 pg/mL effectively rules out acute congestive heart failure with 99% negative predictive value. Performed By: #### M DW, CBC, ANEU, GFR, PBNP, BMP, TROPHS, MG, ADIFF #### [address] [address] TROPHSon 12-21-2023 High Sensitivity Troponin I 22 ng/L Normal 0-51 [facility] Comment on above: Result Comment: High Sensitive Troponin I Reference Ranges: Female: 0-51 ng/L Male: 0-76 ng/L Testing performed on MR Presta using a homogeneous sandwich chemiluminescent immunoassay based on [employer]umm[employer] technology. Performed By: #### M DW, CBC, ANEU, GFR, PBNP, BMP, TROPHS, MG, ADIFF #### [address] [place], [place] [address] High Sensitivity Troponin I 20 ng/L Normal 0-51 [facility] Comment on above: Result Comment: High Sensitive Troponin I Reference Ranges: Female: 0-51 ng/L Male: 0-76 ng/L Testing performed on [employer] EXL using a homogeneous sandwich chemiluminescent immunoassay based on Yumm[employer] technology. Performed By: #### M DW, CBC, ANEU, GFR, PBNP, BMP, TROPHS, MG, ADIFF #### [address] [place], [place] [address] XR CHEST 1 VIEWon 12-21-2023 XR CHEST [...] Date: 12/21/2023 3:28:25 PM Ordering Provider: TABATHA Gleason [facility]CellScope[facility] SIA ABDUL ([id number]) 1980 F Date Time Provider Department 12/18/23 MARILEE THAKUR [facility] During your visit today, we recorded the following information about you: Erendira Stewart LPN 12/18/2023 2:27 PM Signed Shobha from [facility] there were medications sent for pt yesterday Rah Turner RN 12/22/2023 9:49 AM Signed [facility]- phoned to report patient was seen in [place] ER on Friday12-21-23, with SOB. ER gave patient IV lasix and sent patient home. Reports patient is having stress in skilled nursing with another housemate, which is causing patient anxiety, and this was part of the problem, but patient has also been having problems with edema. This nurse phoned Shobha- [facility] to schedule ER f/u appt, and noted in 12-17-23 encounter, Stripping And Booking Machine Operator had ordered potassium 20 mg daily, and lasix 40 mg daily, until patient is seen. Asked Shobha how patient is doing on this dose. Shobha reports patient never received the medication, b/c it was sent to the wrong pharmacy, should have been sent to [place]. Shobha did call pcp to report this (see message below), but never received the medication. Reports even if the medication is sent to [place] today- they still will not receive it until Fri. Pended medications for [facility]. Please send geovanny. Shobha reports patient is doing fine today- and they are working on the problem with the housemate. Scheduled patient hosp f/u appt for 01-01-24. Mika Kaplan APRN.OBED 12/22/2023 10:58 AM Signed Prescription Resent. Thank you Mika Kaplan APRN.Teresa Foster RN 12/22/2023 11:35 AM Signed Called and left a voicemail for the [facility] to call back and ask for a [...] 2 SPRAYS IN EACH NOSTRIL DAILY - Xcndn-5-LLQ-EPA-Fish Oil 1,000 mg (120 mg-180 mg) cap [...] Each once (more content not included)... [facility] Telephone (INTMWS) SIA ABDUL ([id number]) 1980 F Date Time Provider Department 12/17/23 MARILEE THAKUR INTMWS During your visit today, we recorded the following information about you: Rah Turner RN 12/17/2023 9:13 AM Addendum Clarence- [facility]- phoned with patient update: Reports pcp [...] Please advise and phone Clarence with reply: [phone] Mika Kaplan APRN.OBED 12/17/2023 1:23 PM Signed Patient needs to be seen to evaluate why this is continuing to occur. Can increase lasix to 40mg and the potassium to 20mg both daily until seen. Thank you Mika Kaplan APRN.Lillie Adame RN 12/17/2023 2:27 PM Signed Clarence called and notified of below , Clarence voices understanding. Clarence is going to pass this along to skilled nursing. Clarence asking if new scripts can be sent to [facility]? Please review and advise, RODRÍGUEZ [...] 2 SPRAYS IN EACH NOSTRIL DAILY - Qramg-6-XFU-EPA-Fish Oil 1,000 mg (120 mg-180 mg) cap [...] included)... Normal [facility] Tal 12-12-2023 OBEDN Telephone (INTMWS) SIA ABDUL ([id number]) 1980 F Date Time Provider Department 12/12/23 MARILEE THAKUR During your visit today, we recorded the following information about you: Candelaria Ball LPN 12/12/2023 8:10 AM Signed Clarence from [facility] calling patient weight this morning was [...] 2 SPRAYS IN EACH NOSTRIL DAILY - Sfibi-9-SGT-EPA-Fish Oil 1,000 mg (120 mg-180 mg) cap [...] knee, le (more content not included)... [facility] Telephone (INTMWS) SIA ABDUL ([id number]) 1980 F Date Time Provider Department 12/05/23 MARILEE THAKUR INTRahWS During your visit today, we recorded the following information about you: Candelaria Ball LPN 12/05/2023 9:23 AM Signed Clarence from [facility] calling time for recert long term services. Patient skilled nursing was purchased by another company, nurses will be there more. Patient will be weighed once weekly and log kept to bring to appts. Patient is taking her second antibiotic for cellulitis. Please advise Marilee Thakur MD 12/05/2023 7:28 PM Signed Noted, verbal ok for the same Regards, Lacie Mahan MD, LPN 12/08/2023 8:08 AM Signed Called and updated Clarence, voiced understanding. Lacie Reyes LPN December 08, 2023 8:08 AM Allergies As of Date: 12/05/2023 Noted Allergy Reaction BEE STING 02/28/2023 10 - Anaphylaxis DILANTIN (PHENYTOIN SODIUM EXTEND*01/28/2006 Date Reviewed: 11/18/2023 Reviewed by: Aaliyah Gonzalez MA - Fully Assessed Reason for Visit: recert patient for long term service [Other] Prescriptions as of 12/08/2023 - [...] 2 SPRAYS IN EACH NOSTRIL DAILY - Vqmgn-6-AHU-EPA-Fish Oil 1,000 mg (120 mg-180 mg) cap [...] included)... Normal [facility] CNOVon 11-18-2023 CNOV Office Visit (INTMWS ) SIA ABDUL ([id number]) 1980 F Date Time Provider Department 11/18/23 3:40 PM MARILEE THAKUR INTMWS During your visit today, we recorded the following information about you: Pulse Respiration Blood pressure Weight 75/minute 16/minute 134/80 119.6 kg Mairlee Thakur MD 11/18/2023 5:45 PM Signed Reason for Visit Patient presents with: Follow Up Rachellejacques Abdul is a 42 year old female [...] ) fluticasone (FLONASE) 50 mcg/actuation nasal spray Ebmns-9-QLL-EPA-Fish Oil 1,000 mg (120 mg-180 mg) cap [...] included)... Normal [facility] Medical Billing Service Office Visit Reporton 11-18-2023 Medical Billing Service Office Visit Report Normal [facility] CNOVon 11-13-2023 OV Office Visit (INTMWS ) SIA ABDUL ([id number]) 1980 F Date Time Provider Department 11/13/23 [...] then usual and painful. Went immediately to [place] ER on 10/29. No US completed to [...] INSTILL 2 SPRAYS IN EACH NOSTRIL DAILY Pyfwg-5-YTE-EPA-Fish Oil 1,000 mg (120 mg-180 mg) cap [...] included)... Normal [facility] OBEDNon 11-13-2023 LOU Telephone (ROE) SIA ABDUL ([id number]) 1980 F Date Time Provider Department 11/13/23 MIKA KAPLAN During your visit today, we recorded the following information about you: María Avila MA 11/13/2023 2:42 PM Signed ----- Message from Mika Kaplan APRN.BULB INSPECTOR sent at 11/13/2023 2:13 PM EDT ----- Please let [facility] skilled nursing know preliminary result of US is negative [...] 2 SPRAYS IN EACH NOSTRIL DAILY - Hqgcj-5-XMX-EPA-Fish Oil 1,000 mg (120 mg-180 mg) cap [...] lymphedema [I89.0] 04/26/2013 12/14/2014 BMI 50.0-59.9, adult ([facility]) [Z68.43] 10/11/2013 12/14/2014 Venous insufficiency (chronic) (peripheral) [I8*12/14/2014 Acquired hypothyroidism [E03.9] 12/14/2014 Obstructive sleep apnea syndrome [G47.33] 12/14/2014 BMI 40.0-44.9, adult (H[facility]) [Z68.41] 12/14/2014 02/09/2015 BMI 45.0-49.9, adult (HCC) [Z68.42] 02/09/2015 03/19/2023 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 Normal [facility] LEG VEIN DVT UNL VAS LABo n 11-13-2023 LEG VEIN DVT UNL VAS LAB Non-Invasive Vascular Laboratory [facility] Lower Extremity Venous Duplex Unilateral - Left [...] small saphenous vein. Technologist: Hina Giraldo RVT [facility] Ordering physician: MIKA KAPLAN Interpreting physician: DANITZA Eden DO Final CC [employer] Medical Image : [id number] See Link below for Image Normal [facility] Lower extremity veinon Non-Invasive Vascular Laboratory [facility] Lower Extremity Venous Duplex Unilateral - Left [...] small saphenous vein. Technologist: Hina Giraldo RVT, [facility] Ordering physician: MIKA KAPLAN Interpreting physician: DANITZA Eden DO Final See Link below for Image [facility] 11-12-2023 CNPN Telephone (INTMWS) SIA ABDUL ([id number]) 1980 F Date Time Provider Department 11/12/23 MARILEE THAKUR INTMWS During your visit today, we recorded the following information about you: Candelaria Ball LPN 11/12/2023 9:30 AM Signed Clarence from [facility] calling 2 weeks ago ER put [...] LPN 11/19/2023 8:50 AM Signed Clarence from [facility] calling back, went over notes from [...] Date Reviewed: 03/19/2023 Reviewed by: Latesha Garibay APRN.BULB INSPECTOR - Fully Assessed Reason for Visit: Patient [...] 2 SPRAYS IN EACH NOSTRIL DAILY - Yikza-5-ZJR-EPA-Fish Oil 1,000 mg (120 mg-180 mg) cap [...] included)... Normal [facility] Basic Metabolic Profile (BMP )on 10-30-2023 BUN/CRE 21.5 RATIO High - [facility] Comment on above: Performed By: #### L 500.2500, L100.0100 ####[facility] [address] [place], [address] CA,Total 9.3 mg/dL Normal 8.5-10.1 [facility] Comment on above: Performed By: #### L 500.2500, L100.0100 ####[facility] [address] [place], [address] Chloride [Moles/Vol] 105 mmol/L Normal 98-107 [facility] Comment on above: Performed By: #### L 500.2500, L100.0100 ####[facility] [address] [place], [address] CO2 [Moles/Vol] 24.0 mmol/L Normal 21.0-32.0 [facility] Comment on above: Performed By: #### L 500.2500, L100.0100 ####[facility] [address] [place], [address] Creatinine [Mass/Vol] 0.60 mg/dL Normal 0.55-1.02 [facility] Comment on above: Result Comment: The validity of the calculated GFR GFRAA in patients over70 years has not been determined. Clinical correlation isessential. Performed By: #### L 500.2500, L100.0100 ####[facility] [address] [place], [address] ECRCL 142.84 ml/min Normal [facility] Comment on above: Performed By: #### L 500.2500, L100.0100 ####[facility] [address] [place], [address] EST GFR - AA 140 mL/min Normal >60 [facility] Comment on above: Result Comment: Afri can Bahraini GFR Calc Performed By: #### L 500.2500, L100.0100 ####[facility] [address] [place], [address] GAP 10 Normal 5-15 [facility] Comment on above: Performed By: #### L 500.2500, L100.0100 ####[facility] [address] [place], [address] GFR/1.73 sq M.predicted among non-blacks MDRD (S/P/Bld) [Vol rate/Area] 116 mL/min/{1.73_m2} Normal >60 [facility] Comment on above: Result Comment: Non- GFR Calc Performed By: #### L 500.2500, L100.0100 ####[facility] [address] [place], [address] Glucose [Mass/Vol] 80 mg/dL Normal 74-106 [facility] Comment on above: Performed By: #### L 500.2500, L100.0100 ####[facility] [address] [place], [address] Potassium [Moles/Vol] 4.5 mmol/L Normal 3.5-5.1 [facility] Comment on above: Performed By: #### L 500.2500, L100.0100 ####[facility] [address] [place], [address] Sodium [Moles/Vol] 139 mmol/L Normal 136-145 [facility] Comment on above: Performed By: #### L 500.2500, L100.0100 ####[facility] [address] [place], [address] Urea nitrogen [Mass/Vol] 13 mg/dL Normal 7-18 [facility] Comment on above: Performed By: #### L 500.2500, L100.0100 ####[facility] [address] [place], [address] CBC W/Diff, Automatedon 10-09-2023 Absolute Lymph 3.89 X10 3/uL Normal 0.83-4.51 [facility] Comment on above: Performed By: #### L 500.2500, L100.0100 ####[facility] [address] [place], [address] Absolute Neut 8.1 X10 3/uL High 2.0-7.7 [facility] Comment on above: Performed By: #### L 500.2500, L100.0100 ####[facility] [address] [place], [address] Basophils/100 WBC (Bld) 0.7 % Normal 0-1 [facility] Comment on above: Performed By: #### L 500.2500, L100.0100 ####[facility] [address] [place], [address] Eosinophils/100 WBC (Bld) 1.9 % Normal 0-5 [facility] Comment on above: Performed By: #### L 500.2500, L100.0100 ####[facility] [address] [place], [address] Erythrocyte distribution width (RBC) [Ratio] 12.8 % Normal 11.6-14.6 [facility] Comment on above: Performed By: #### L 500.2500, L100.0100 ####[facility] [address] [place], [address] Hematocrit (Bld) [Volume fraction] 45.4 % Normal 37-47 [facility] Comment on above: Performed By: #### L 500.2500, L100.0100 ####[facility] [address] [place], [address] Hemoglobin (Bld) [Mass/Vol] 14.1 g/dL Normal 12.0-15.0 [facility] Comment on above: Performed By: #### L 500.2500, L100.0100 ####[facility] [address] [place], [address] IG% 0.300 Normal 0.0-0.9 [facility] Comment on above: Result Comment: IG% - Immature Granulocytes (promyelocytes, myelocytes andmetamyelocytes) > 1% indicates that a LEFT SHIFT is Present. Performed By: #### L 500.2500, L100.0100 ####[facility] [address] [place], [address] Lymphocytes/100 WBC (Bld) 28.9 % Normal 19-41 [facility] Comment on above: Performed By: #### L 500.2500, L100.0100 ####[facility] [address] [place], [address] MCH (RBC) [Entitic mass] 31.2 pg Normal 27.0-32.0 [facility] Comment on above: Performed By: #### L 500.2500, L100.0100 ####[facility] [address] [place], [address] MCHC (RBC) [Mass/Vol] 31.1 g/dL Low 32-36 [facility] Comment on above: Performed By: #### L 500.2500, L100.0100 ####[facility] [address] [place], [address] MCV (RBC) [Entitic vol] 100.4 fL High 81-99 [facility] Comment on above: Performed By: #### L 500.2500, L100.0100 ####[facility] [address] [place], [address] Monocytes/100 WBC (Bld) 8.0 % Normal 0-10 [facility] Comment on above: Performed By: #### L 500.2500, L100.0100 ####[facility] [address] [place], [address] Neutrophils/100 WBC (Bld) 60.2 % Normal 47-70 [facility] Comment on above: Performed By: #### L 500.2500, L100.0100 ####[facility] [address] [place], [address] Nucleated RBC (Bld) [#/Vol] 0 10*3/uL Normal 0-5 [facility] Comment on above: Performed By: #### L 500.2500, L100.0100 ####[facility] [address] [place], [address] Platelet mean volume (Bld) [Entitic vol] 10.8 fL Normal 6.2-12.0 [facility] Comment on above: Performed By: #### L 500.2500, L100.0100 ####[facility] [address] [place], [address] Platelets (Bld) [#/Vol] 155 10*3/uL Normal 150-450 [facility] Comment on above: Performed By: #### L 500.2500, L100.0100 ####[facility] [address] [place], [address] RBC (Bld) [#/Vol] 4.52 10*6/uL Normal 4.2-5.4 [facility] Comment on above: Performed By: #### L 500.2500, L100.0100 ####[facility] [address] [place], [address] RDW SD 47.6 fl High 35.1-43.9 [facility] Comment on above: Performed By: #### L 500.2500, L100.0100 ####[facility] [address] [place], [place], [address] WBC (Bld) [#/Vol] 13.5 10*3/uL High 4.4-11.0 [facility] Comment on above: Performed By: #### L 500.2500, L100.0100 ####[facility] [address] [place], [address] Emergency Department Summary on 10-30-2023 Emergency Department Summary Normal [facility] Pelvic w/ Transvaginalon Pelvic w/ Transvaginal Normal [facility] CNPNon 10-09-2023 CNPN Telephone (INTMWS) SIA ABDUL ([id number]) 1980 F Date Time Provider Department 10/09/23 MARILEE THAKUR INTMWS During your visit today, we recorded the following information about you: Pepper Walsh RN 10/09/2023 2:35 PM Signed Crystal with [facility] calling to update PCP that patient [...] Date Reviewed: 03/19/2023 Reviewed by: Latesha Garibay APRN.BULB INSPECTOR - Fully Assessed Reason for Visit: Patient Update [1234] Prescriptions as of 10/10/2023 - multivitamin-ferrous fumarate-folic acid (CERTAVITE-ANTIOXIDANT ) Take 1 tablet by mouth once daily. - fluticasone (FLONASE) 50 mcg/actuation nasal spray INSTILL 2 SPRAYS IN EACH NOSTRIL DAILY - Sdrkp-8-EJB-EPA-Fish Oil 1,000 mg (120 mg-180 mg) cap [...] hypogonadism (H (more content not included)... [facility] SIA ABDUL ([id number]) 1980 F Date Time Provider Department 10/09/23 MARILEE THAKUR INTILANA During your visit today, we recorded the following information about you: Candelaria Ball LPN 10/09/2023 1:34 PM Signed Clarence from [facility] calling to recert orders for detention for the patient, if PCP would agree. Please advise Marilee Thakur MD 10/09/2023 5:58 PM Signed Agree Marilee Lassiter MD, Beth, LPN 10/10/2023 8:38 AM Signed Phoned Clarence and went over notes below from Dr Thakur with understanding. Allergies As of Date: 10/09/2023 Noted Allergy Reaction BEE STING 02/28/2023 10 - Anaphylaxis DILANTIN (PHENYTOIN SODIUM EXTEND*01/28/2006 Date Reviewed: 03/19/2023 Reviewed by: Latesha Garibay APRN.BULB INSPECTOR - Fully Assessed Reason for Visit: recert orders [Other] Prescriptions as of 10/10/2023 - multivitamin-ferrous fumarate-folic acid (CERTAVITE-ANTIOXIDANT ) Take 1 tablet by mouth once daily. - fluticasone (FLONASE) 50 mcg/actuation nasal spray INSTILL 2 SPRAYS IN EACH NOSTRIL DAILY - Bbmto-9-OSZ-EPA-Fish Oil 1,000 mg (120 mg-180 mg) cap [...] included)... 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 A review on management of adults with PWS has been published recently (PMID: 58476494). When systematically screened for common conditions, some [...] encouraged participation in sports activities at her skilled nursing. - Management of HTN per PCP. 2. At risk for endocrinopathies: Adults with PWS are at increased risk for diabetes, hypercholesterolemia, growth hormone deficiency, hypogonadism, and rarely, adrenal insufficiency. 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 Plan: - Annual TSH, lipid profile, HbA1C through PCP - See Instructional Support Assistant for OCP 3. Bone health Adults with [...] year Chief Complaint Follow up Accompanied by health care assistant. History of Present Illness PWS CLINIC Deepali is a 42 year old female who has presented to the PWS multidisciplinary clinic at [facility]. 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 History was obtained by the patient, [...] the past. PCP: Dr. Marilee Thakur at [facility], fax number [phone], is currently seeing an STRINGED INSTRUMENT REPAIRER named Older at this office Interval History: [...] and Friday, where she works out (e.g., [employer], [employer]) half a day. She just received a [...] records - they may be accessible on [employer], and will hopefully be more available on [employer]. - Seeing Gynecology for OCP (for bone health). Dx of uterine prolapse. - Asthma, using inhalers twice a day. She denies dys (more content not included)... Normal [facility]-[place] 12-05-2022 Nutrition-Adult History of Present Illness Food/Nutrition related history: [facility] Nutrition Assessment in PWS Clinic Date of [...] AND INTAKE: Pt and caregiver (Anali - Land Sales Agent) present in out-patient PWS clinic for a scheduled f/u clinic visit. 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 [facility] sends packed meals home with her. Food [...] report to dietitian - Send copies of [facility] Menus and pts actual % of [...] - Nu (more content not included)... Normal [facility] Tobacco Screening.on 023 Adult depression screening assessment No [facility] Work Phone: Tobacco use status [facility] b) No M P-Aktypnxi[address] Work Phone: Tobacco Screening.on 022 Adult depression screening assessment [facility] Work Phone: Fall risk assessment a) No falls within the last year [facility] DO Work Phone: Tobacco use status [facility] b) No [facility] DO Work Phone: US Hip - lefton 05-31-2021 IMPRESSION: Unremarkable ultrasound of the anterior left hip Bi Report Developer: NADIA Transcribe Date/Time: May 31 2021 1:54P Dictated by : PAM MUNIZ MD This examination was interpreted and the report reviewed and electronically signed by: GUS SAGE MD on May 31 2021 2:05PM [facility] DIVISION OF RADIOLOGY * * *Final Report* * * DATE OF EXAM: May 31 2021 1:48PM [facility] [address] [facility] HIP LT / PROCEDURE REASON: Left [...] Not well seen. DIVISION OF RADIOLOGY Provider, [facility] - 05/31/2021 * * *Final Report* * * DATE OF EXAM: May 31 2021 1:48PM [facility] [address] [facility] HIP LT / PROCEDURE REASON: Left [...] Unremarkable ultrasound of the anterior left hip Bi Report Developer: NADIA Transcribe Date/Time: May 31 2021 1:54P Dictated by : PAM MUNIZ MD This examination was interpreted and the report reviewed and electronically signed by: GUS SAGE MD on May 31 2021 2:05PM EST [facility] Radiology Study observation (narrative) [facility] US Hip - leftOrdered By: [facility] Provider on 05-31-2021 [facility] Tobacco Screening.on 022 Fall risk assessment a) No falls within the last year [facility]-Tcxtyaof[address] Work Phone: Tobacco use status [facility] b) No M C-Tklndtfr-[address] Work Phone: CNOVon 02-15-2021 CNOV Office Visit (AGMIL) SIA ABDUL ([id number]) 1980 F Date Time Provider Department 02/15/21 [...] needed basis. This note was generated with [employer] dictation software. It may contain incorrect words, spelling, and punctuation and that were not noted in review of the chart prior to signing. I spent 15 minutes in the visit, with more than 50% of the total mkwm-ms-okjt time of the visit in counseling / coordination of care. Recommendations: #1 continue lymphedema pumping #2 continue lymphedema wraps #3 check with primary care physician and if no contraindications begin enteric-coated baby aspirin on a daily basis. Referring Provider: MARILEE THAKUR [[id number]] Allergies As of Date: 02/15/2021 Noted Allergy [...] left lower extremity [I89.0] BMI 50.0-59.9, adult ([facility]) [Z68.43] Prescriptions as of 02/15/2021 - furosemide (LASIX) 20 mg tablet TAKE ONE TABLET BY MOUTH EVERY OTHER DAY - clotrimazole (LOTRIMIN, CLOTRIM) 1 % cream APPLY TOPICALLY TO AFFECTED AREA(S) ON BILATERAL GROIN TWICE DAILY - ammonium lactate (LAC-HYDRIN) 12 % cream APPLY TOPICALLY TO AFFECTED AREA(S) ON LEGS AT BEDTIME - mfyexlc-ebzaanccz-jgzt min D3 (OYSTER SHELL CALCIUM-VITAMIN D) 500 [...] DAILY *SHAKE GENTLY BEFORE USING* - Fish Oil-Powderly-3 Fatty Acids (FISH OIL) 340-1,000 mg cap [...] Dx: Recu (more content not included)... Normal [facility] CNOVon 01-18-[address] [facility] Office Visit (AGMIL) SIA ABDUL ([id number]) 1980 F Date Time Provider Department 01/18/21 [...] a month. This note was generated with [employer] software. It may contain incorrect words, spelling, and punctuation and that were not noted in review of the chart prior to signing. I spent 15 minutes in the visit, with more than 50% of the total tmhj-bs-pdyc time of the visit in counseling / coordination of care. Referring Provider: MARILEE THAKUR [[id number]] Allergies As of Date: 01/18/2021 Noted Allergy Reaction BEES,WASPS [Other] 10/22/2005 7 - Swelling DILANTIN (PHENYTOIN SODIUM EXTEND*01/28/2006 mosquitoes [Other] 01/28/2006 Date Reviewed: 01/18/2021 Reviewed by: Kirti Bidr LPN - Fully Assessed Reason for Visit: Thrombophlebitis [Other] Cmt: Jayshree is new pt rfd by Yazan Yang CNP Primary Visit Diagnosis:Venous insufficiency (chronic) (peripheral) [I87.2] Other Visit Diagnoses:Lymphedema of left lower extremity [I89.0] Lymphedema of right lower extremity [I89.0] BMI 50.0-59.9, adult ([facility]) [Z68.43] Phlebitis and thombophlb of superfic vessels of r low extrem [I80.01] Order(s):US LEG VEIN DVT [facility] [[id number]] Order #: [id number] FUTURE Prescriptions as of 01/29/2021 - clotrimazole (LOTRIMIN, CLOTRIM) 1 % cream APPLY TOPICALLY TO AFFECTED AREA(S) ON BILATERAL GROIN TWICE DAILY - ammonium lactate (LAC-HYDRIN) 12 % cream APPLY TOPICALLY TO AFFECTED AREA(S) ON LEGS AT BEDTIME - xkrsfjj-hvuyejsbe-wczr min D3 (OYSTER SHELL CALCIUM-VITAMIN D) 500 [...] DAILY *SHAKE GENTLY BEFORE USING* - Fish Oil-Powderly-3 Fatty Acids (FISH OIL) 340-1,000 mg cap [...] by mout (more content not included)... Normal [facility] Vital Signs Date Time Vital Sign Value Performing Clinician Facility 10-05-2024 10:42-0400 Body mass index (BMI) [Ratio] 59.49 kg/m2 Hilda Yuan [employer] Work Phone: [facility] 10-05-2024 10:42-0400 Body weight 122.52 kg Hilda Jeong [employer] Work Phone: [facility] 10-05-2024 10:42-0400 Diastolic blood pressure 60 mm[Hg] Hilda Jeong DO Work Phone: [facility] 10-05-2024 10:42-0400 Heart rate 67 /min Hilda Jeong [employer] Work Phone: [facility] 10-05-2024 10:42-0400 SaO2% (BldA) [Mass fraction] 99 % Hilda Jeong [employer] Work Phone: [facility] Comment on above: 3L 10-05-2024 10:42-0400 Systolic blood pressure 104 mm[Hg] Hilda Jeong [employer] Work Phone: [facility] 09-13-2024 15:49-0400 Body mass index (BMI) [Ratio] 61.67 kg/m2 Marilee Thakur MD Work Phone: [facility] 09-13-2024 15:49-0400 Body weight 127.01 kg Marilee Thakur MD Work Phone: [facility] 09-13-2024 15:49-0400 Diastolic blood pressure 76 mm[Hg] Marilee Thakur MD Work Phone: [facility] 09-13-2024 15:49-0400 Heart rate 60 /min Marilee Thakur MD Work Phone: [facility] 09-13-2024 15:49-0400 Respiratory rate 18 /min Marilee Thakur MD Work Phone: [facility] 09-13-2024 15:49-0400 SaO2% (BldA) [Mass fraction] 95 % Marilee Thakur MD Work Phone: [facility] 09-13-2024 15:49-0400 Systolic blood pressure 115 mm[Hg] Marilee Thakur MD Work Phone: [facility] 08-27-2024 13:19-0400 SaO2% (BldA) [Mass fraction] 97.4 % ANSELMO FALK MD [facility] 05-30-2024 12:19-0400 Blood Pressure Cuff Size NOEMI WEST MD [facility] 05-30-2024 12:19-0400 Blood Pressure Location NOEMI WEST MD [facility] 05-30-2024 12:19-0400 Blood Pressure Method NOEMI WEST MD [facility] 05-30-2024 12:19-0400 Body temperature 97.7 [degF] NOEMI WEST MD [facility] 05-30-2024 12:19-0400 Diastolic Blood Pressure Non-Invasive 59 mm[Hg] NOEMI WEST MD [facility] 05-30-2024 12:19-0400 Heart rate 65 /min NOEMI WEST MD [facility] 05-30-2024 12:19-0400 Reason For Taking VItal Signs NOEMI WEST MD [facility] 05-30-2024 12:19-0400 Respiratory rate 18 /min NOEMI WEST MD [facility] 05-30-2024 12:19-0400 Systolic Blood Pressure Non-Invasive 141 mm[Hg] NOEMI WEST MD [facility] 05-30-2024 09:10-0400 Body temperature 97.7 [degF] NOEMI WEST MD [facility] 05-30-2024 09:10-0400 Diastolic Blood Pressure Non-Invasive 60 mm[Hg] NOEMI WEST MD [facility] 05-30-2024 09:10-0400 Heart rate 66 /min NOEMI WEST MD [facility] 05-30-2024 09:10-0400 Reason For Taking VItal Signs NOEMI WEST MD [facility] 05-30-2024 09:10-0400 Respiratory rate 18 /min NOEMI WEST MD [facility] 05-30-2024 09:10-0400 Systolic Blood Pressure Non-Invasive 126 mm[Hg] NOEMI WEST MD [facility] 05-30-2024 03:52-0400 SaO2% (BldA) [Mass fraction] 92.0 % NOEMI WEST MD [facility] 05-30-2024 00:39-0400 Heart rate 62 /min NOEMI WEST MD [facility] 05-30-2024 00:27-0400 Blood Pressure Cuff Size NOEMI WEST MD [facility] 05-30-2024 00:27-0400 Blood Pressure Location NOEMI WEST MD [facility] 05-30-2024 00:27-0400 Blood Pressure Method NOEMI WEST MD [facility] 05-30-2024 00:27-0400 Body temperature 97.52 [degF] NOEMI WEST MD [facility] 05-30-2024 00:27-0400 Diastolic Blood Pressure Non-Invasive 74 mm[Hg] NOEMI WEST MD [facility] 05-30-2024 00:27-0400 Heart rate 66 /min NOEMI WEST MD [facility] 05-30-2024 00:27-0400 Reason For Taking VItal Signs NOEMI WEST MD [facility] 05-30-2024 00:27-0400 Respiratory rate 16 /min NOEMI WEST MD [facility] 05-30-2024 00:27-0400 Systolic Blood Pressure Non-Invasive 121 mm[Hg] NOEMI WEST MD [facility] 05-29-2024 20:32-0400 Blood Pressure Cuff Size NOEMI WEST MD [facility] 05-29-2024 20:32-0400 Blood Pressure Location NOEMI WEST MD [facility] 05-29-2024 20:32-0400 Blood Pressure Method NOEMI WEST MD [facility] 05-29-2024 02:57-0400 Heart rate 68 /min NOEMI WEST MD [facility] 05-28-2024 03:10-0400 Body temperature 98.06 [degF] NOEMI WEST MD [facility] 05-28-2024 03:10-0400 Heart rate 65 /min NOEMI WEST MD [facility] 05-28-2024 03:04-0400 SaO2% (BldA) [Mass fraction] 93.4 % NOEMI WEST MD [facility] 05-27-2024 19:22-0400 Body temperature 98.6 [degF] NOEMI WEST MD [facility] 05-27-2024 19:22-0400 Heart rate 71 /min NOEMI WEST MD [facility] 05-27-2024 16:20-0400 Heart rate 67 /min NOEMI WEST MD [facility] 05-27-2024 11:52-0400 Body temperature 97.88 [degF] NOEMI WEST MD [facility] 05-26-2024 10:09-0400 SaO2% (BldA) [Mass fraction] 98.8 % NOEMI WEST MD [facility] 05-26-2024 07:30-0400 Body weight 138.6 kg NOEMI WEST MD [facility] 05-25-2024 11:32-0400 Heart rate 66 /min NOEMI WEST MD [facility] 05-25-2024 08:16-0400 Body weight 140.2 kg NOEMI WEST MD [facility] 05-24-2024 16:26-0400 SaO2% (BldA) [Mass fraction] 91.8 % NOEMI WEST MD [facility] 05-23-2024 16:26-0400 Mean blood pressure 76 mm[Hg] NOEMI WEST MD [facility] 05-22-2024 19:29-0400 Mean blood pressure 85 mm[Hg] NOEMI WEST MD [facility] 05-22-2024 06:30-0400 Mean blood pressure 74 mm[Hg] NOEMI WEST MD [facility] 05-18-2024 04:43-0400 Mean blood pressure 48 mm[Hg] NOEMI WEST MD [facility] 05-18-2024 04:42-0400 Mean blood pressure 90 mm[Hg] NOEMI WEST MD [facility] 05-18-2024 04:39-0400 SaO2% (BldA) [Mass fraction] 95.6 % NOEMI WEST MD [facility] 05-18-2024 03:57-0400 Diastolic blood pressure 73 mm[Hg] NOEMI WEST MD [facility] 05-18-2024 03:57-0400 Mean blood pressure 91 mm[Hg] NOEMI WEST MD [facility] 05-18-2024 03:57-0400 Systolic blood pressure 111 mm[Hg] NOEMI WEST MD [facility] 05-18-2024 02:06-0400 SaO2% (BldA) [Mass fraction] 99.4 % NOEMI WEST MD [facility] 05-13-2024 01:56-0500 Body height 149 cm NOEMI WEST MD [facility] 05-13-2024 01:56-0500 Body weight 136.1 kg NOEMI WEST MD [facility] 05-13-2024 01:56-0500 Body weight 61.3 kg/m2 NOEMI WEST MD [facility] 05-08-2024 12:14-0500 Diastolic Blood Pressure Non-Invasive 82 mm[Hg] JAMILA DARDEN MD [facility] 05-08-2024 12:14-0500 Heart rate 71 /min JAMILA DARDEN MD [facility] 05-08-2024 12:14-0500 Reason For Taking VItal Signs JAMILA DARDEN MD [facility] 05-08-2024 12:14-0500 Respiratory rate 18 /min JAMILA DARDEN MD [facility] 05-08-2024 12:14-0500 Systolic Blood Pressure Non-Invasive 130 mm[Hg] JAMILA DARDEN MD [facility] 05-08-2024 12:03-0500 Diastolic Blood Pressure Non-Invasive 76 mm[Hg] JAMILA DARDEN MD [facility] 05-08-2024 12:03-0500 Respiratory rate 18 /min JAMILA DARDEN MD [facility] 05-08-2024 12:03-0500 Systolic Blood Pressure Non-Invasive 130 mm[Hg] JAMILA DARDEN MD [facility] 05-08-2024 11:00-0500 Blood Pressure Location JAMILA DARDEN MD [facility] 05-08-2024 11:00-0500 Body temperature 97.88 [degF] JAMILA DARDEN MD [facility] 05-08-2024 11:00-0500 Diastolic Blood Pressure Non-Invasive 83 mm[Hg] JAMILA DARDEN MD [facility] 05-08-2024 11:00-0500 Heart rate 75 /min JAMILA DARDEN MD [facility] 05-08-2024 11:00-0500 Respiratory rate 20 /min JAMILA DARDEN MD [facility] 05-08-2024 11:00-0500 Systolic Blood Pressure Non-Invasive 143 mm[Hg] JAMILA DARDEN MD [facility] 05-04-2024 12:01-0500 Diastolic blood pressure 79 mm[Hg] Isi Goodman MD Work Phone: [facility] 05-04-2024 12:01-0500 Heart rate 63 /min Isi Goodman MD Work Phone: [facility] 05-04-2024 12:01-0500 SaO2% (BldA) [Mass fraction] 99 % Isi Goomdan MD Work Phone: [facility] 05-04-2024 12:01-0500 Systolic blood pressure 130 mm[Hg] Isi Goodman MD Work Phone: [facility] 05-03-2024 15:22-0500 Body height 149.9 cm Keely Ordonez MD Work Phone: [facility] 05-03-2024 15:22-0500 Body mass index (BMI) [Ratio] 57.56 kg/m2 Keely Ordonez MD Work Phone: [facility] 05-03-2024 15:22-0500 Body weight 129.28 kg Keely Ordonez MD Work Phone: [facility] 05-03-2024 15:22-0500 Diastolic blood pressure 78 mm[Hg] Keely Ordonez MD Work Phone: [facility] 05-03-2024 15:22-0500 Heart rate 62 /min Keely Ordonez MD Work Phone: [facility] 05-03-2024 15:22-0500 Systolic blood pressure 112 mm[Hg] Keely Ordonez MD Work Phone: [facility] 05-02-2024 12:59-0500 SaO2% (BldA) [Mass fraction] 94 % Dr. Marilee Thakur MD Work Phone: 5(533)[phone] [place] [address] 05-02-2024 10:00-0500 Inhaled oxygen flow rate 2 L/min Dr. Marilee Thakur MD Work Phone: 8(557)[phone] [place] [address] 05-02-2024 09:16-0500 Body temperature 97.7 [degF] Dr. Marilee Thakur MD Work Phone: 2(946)514-180636 [place] [address] 05-02-2024 09:16-0500 Diastolic blood pressure 72 mm[Hg] Dr. Marilee Thakur MD Work Phone: 8(748)742-045836 [place] [address] 05-02-2024 09:16-0500 Heart rate 54 /min Dr. Marilee Thakur MD Work Phone: 0(993)399-146136 [place] [address] 05-02-2024 09:16-0500 Respiratory rate 17 /min Dr. Marilee Thakur MD Work Phone: 5(254)952-953436 [place] [address] 05-02-2024 09:16-0500 Systolic blood pressure 111 mm[Hg] Dr. Marilee Thakur MD Work Phone: 5(801)210-685036 [place] [address] 05-02-2024 04:21-0500 Body mass index (BMI) [Ratio] 59.1 kg/m2 Dr. Marilee Thakur MD Work Phone: 0(188)676-878136 [place] [address] 05-02-2024 04:21-0500 Body weight 137.[address] Marilee Thakur MD Work Phone: 5(359)756-656736 [place] [address] 04-30-2024 03:18-0500 Inhaled oxygen concentration 21 % Dr. Marilee Thakur MD Work Phone: 6(295)428-466936 [place] [address] 04-29-2024 22:16-0500 Body height 152.[address] Marilee Thakur MD Work Phone: [facility] 04-06-2024 09:51-0500 Diastolic blood pressure 83 mm[Hg] Hilda Jeong DO Work Phone: [facility] 04-06-2024 09:51-0500 Heart rate 76 /min Hilda Jeong DO Work Phone: [facility] 04-06-2024 09:51-0500 SaO2% (BldA) [Mass fraction] 99 % Hilda Jeong DO Work Phone: [facility] Comment on above: 2L 04-06-2024 09:51-0500 Systolic blood pressure 121 mm[Hg] Hilda Jeong DO Work Phone: [facility] 04-01-2024 10:56-0500 Body mass index (BMI) [Ratio] 61.89 kg/m2 Mika Older [employer] Work Phone: [facility] 04-01-2024 10:56-0500 Body weight 127.46 kg Mika Older [employer] Work Phone: [facility] 04-01-2024 10:56-0500 Diastolic blood pressure 80 mm[Hg] Mika Older [employer] Work Phone: [facility] 04-01-2024 10:56-0500 Heart rate 72 /min Mika Older [employer] Work Phone: [facility] 04-01-2024 10:56-0500 Respiratory rate 16 /min Mika Older [employer] Work Phone: [facility] 04-01-2024 10:56-0500 SaO2% (BldA) [Mass fraction] 93 % Mika Older [employer] Work Phone: [facility] 04-01-2024 10:56-0500 Systolic blood pressure 122 mm[Hg] Mika Older [employer] Work Phone: [facility] 03-23-2024 10:33-0500 Body mass index (BMI) [Ratio] 63.22 kg/m2 Isi Goodman MD Work Phone: [facility] 03-23-2024 10:33-0500 Body weight 129.28 kg Isi Goodman MD Work Phone: [facility] 03-23-2024 10:33-0500 Diastolic blood pressure 73 mm[Hg] Isi Goodman MD Work Phone: [facility] 03-23-2024 10:33-0500 Heart rate 67 /min Isi Goodman MD Work Phone: [facility] 03-23-2024 10:33-0500 SaO2% (BldA) [Mass fraction] 98 % Isi Goodman MD Work Phone: [facility] 03-23-2024 10:33-0500 Systolic blood pressure 123 mm[Hg] Isi Goodman MD Work Phone: [facility] 03-12-2024 10:14-0500 Body mass index (BMI) [Ratio] 66.37 kg/m2 Rajesh Corona MD Work Phone: [facility] 03-12-2024 10:14-0500 Body weight 136.7 kg Rajesh Corona MD Work Phone: [facility] 03-12-2024 10:14-0500 Diastolic blood pressure 85 mm[Hg] Rajesh Corona MD Work Phone: [facility] 03-12-2024 10:14-0500 Heart rate 74 /min Rajesh Corona MD Work Phone: [facility] 03-12-2024 10:14-0500 SaO2% (BldA) [Mass fraction] 98 % Rajesh Corona MD Work Phone: [facility] 03-12-2024 10:14-0500 Systolic blood pressure 116 mm[Hg] Rajesh Corona MD Work Phone: [facility] 02-27-2024 05:29-0500 Diastolic Blood Pressure Non-Invasive 89 mm[Hg] AJMILA DARDEN MD [facility] 02-27-2024 05:29-0500 Heart rate 65 /min JAMILA DARDEN MD [facility] 02-27-2024 05:29-0500 Respiratory rate 21 /min JAMILA DARDEN MD [facility] 02-27-2024 05:29-0500 Systolic Blood Pressure Non-Invasive 127 mm[Hg] JAMILA DARDEN MD [facility] 02-27-2024 03:55-0500 Diastolic Blood Pressure Non-Invasive 61 mm[Hg] JAMILA DARDEN MD [facility] 02-27-2024 03:55-0500 Heart rate 74 /min JAMILA DARDEN MD [facility] 02-27-2024 03:55-0500 Respiratory rate 23 /min JAMILA DARDEN MD [facility] 02-27-2024 03:55-0500 Systolic Blood Pressure Non-Invasive 109 mm[Hg] JAMILA DARDEN MD [facility] 02-27-2024 03:36-0500 Heart rate 75 /min JAMILA DARDEN MD [facility] 02-27-2024 03:36-0500 Respiratory rate 24 /min JAMILA DARDEN MD [facility] 02-27-2024 03:35-0500 Diastolic Blood Pressure Non-Invasive 75 mm[Hg] JAMILA DARDEN MD [facility] 02-27-2024 03:35-0500 Systolic Blood Pressure Non-Invasive 97 mm[Hg] JAMILA DARDEN MD [facility] 02-16-2024 15:17-0500 Body mass index (BMI) [Ratio] 63.65 kg/m2 Marilee Thakur MD Work Phone: [facility] 02-16-2024 15:17-0500 Body weight 131.09 kg Marilee Thakur MD Work Phone: [facility] 02-16-2024 15:17-0500 Diastolic blood pressure 58 mm[Hg] Marilee Thakur MD Work Phone: [facility] 02-16-2024 15:17-0500 Heart rate 57 /min Marilee Thakur MD Work Phone: [facility] 02-16-2024 15:17-0500 SaO2% (BldA) [Mass fraction] 93 % Marilee Thakur MD Work Phone: [facility] 02-16-2024 15:17-0500 Systolic blood pressure 78 mm[Hg] Marilee Thakur MD Work Phone: [facility] 02-06-2024 11:38-0500 Body mass index (BMI) [Ratio] 63.22 kg/m2 Marilee Thakur MD Work Phone: [facility] 02-06-2024 11:38-0500 Body weight 130.21 kg Marilee Thakur MD Work Phone: [facility] 02-06-2024 11:38-0500 Diastolic blood pressure 77 mm[Hg] Marilee Thakur MD Work Phone: [facility] 02-06-2024 11:38-0500 Heart rate 65 /min Marilee Thakur MD Work Phone: [facility] 02-06-2024 11:38-0500 SaO2% (BldA) [Mass fraction] 96 % Marilee Thakur MD Work Phone: [facility] 02-06-2024 11:38-0500 Systolic blood pressure 112 mm[Hg] Marilee Thakur MD Work Phone: [facility] 01-20-2024 08:45-0500 Body mass index (BMI) [Ratio] 65.21 kg/m2 Isi Goodman MD Work Phone: [facility] 01-20-2024 08:45-0500 Body weight 133.36 kg Isi Goodman MD Work Phone: [facility] 01-20-2024 08:45-0500 Diastolic blood pressure 74 mm[Hg] Isi Goodman MD Work Phone: [facility] 01-20-2024 08:45-0500 Heart rate 74 /min Isi Goodman MD Work Phone: [facility] 01-20-2024 08:45-0500 SaO2% (BldA) [Mass fraction] 95 % Isi Goodman MD Work Phone: [facility] 01-20-2024 08:45-0500 Systolic blood pressure 109 mm[Hg] Isi Goodman MD Work Phone: [facility] 01-12-2024 09:05-0500 Body mass index (BMI) [Ratio] 60.59 kg/m2 Marilee Thakur MD Work Phone: [facility] 01-12-2024 09:05-0500 Body weight 124.79 kg Marilee Thakur MD Work Phone: [facility] 01-12-2024 09:05-0500 Diastolic blood pressure 70 mm[Hg] Marilee Thakur MD Work Phone: [facility] 01-12-2024 09:05-0500 Heart rate 77 /min Marilee Thakur MD Work Phone: [facility] 01-12-2024 09:05-0500 Respiratory rate 16 /min Marilee Thakur MD Work Phone: [facility] 01-12-2024 09:05-0500 SaO2% (BldA) [Mass fraction] 99 % Marilee Thakur MD Work Phone: [facility] 01-12-2024 09:05-0500 Systolic blood pressure 134 mm[Hg] Marilee Thakur MD Work Phone: [facility] 12-21-2023 17:32-0400 Diastolic Blood Pressure Non-Invasive 83 mm[Hg] TABATHA CAMILO DO [facility] 12-21-2023 17:32-0400 Heart rate 66 /min TABATHA CAMILO DO [facility] 12-21-2023 17:32-0400 Respiratory rate 16 /min TABATHA CAMILO DO [facility] 12-21-2023 17:32-0400 Systolic Blood Pressure Non-Invasive 123 mm[Hg] TABATHA CAMILO DO [facility] 12-21-2023 16:06-0400 Diastolic Blood Pressure Non-Invasive 86 mm[Hg] TABATHA CAMILO DO [facility] 12-21-2023 16:06-0400 Heart rate 72 /min TABATHA CAMILO DO [facility] 12-21-2023 16:06-0400 Mean blood pressure 97 mm[Hg] TABATHA CAMILO DO [facility] 12-21-2023 16:06-0400 Respiratory rate 18 /min TABATHA CAMILO DO [facility] 12-21-2023 16:06-0400 Systolic Blood Pressure Non-Invasive 116 mm[Hg] TABATHA CAMILO DO [facility] 12-21-2023 14:11-0400 Blood Pressure Location TABATHA CAMILO DO [facility] 12-21-2023 14:11-0400 Body temperature 97.88 [degF] TABATHA PAGE DO [facility] 12-21-2023 14:11-0400 Diastolic Blood Pressure Non-Invasive 85 mm[Hg] TABATHA PAGE DO [facility] 12-21-2023 14:11-0400 Heart rate 63 /min TABATHA PAGE DO [facility] 12-21-2023 14:11-0400 Respiratory rate 16 /min TABATHA PAGE DO [facility] 12-21-2023 14:11-0400 Systolic Blood Pressure Non-Invasive 130 mm[Hg] TABATHA PAGE DO [facility] 11-18-2023 16:05-0400 Body mass index (BMI) [Ratio] 58.07 kg/m2 Marilee Thakur MD Work Phone: [facility] 11-18-2023 16:05-0400 Body weight 119.6 kg Marilee Thakur MD Work Phone: [facility] 11-18-2023 16:05-0400 Diastolic blood pressure 80 mm[Hg] Marilee Thakur MD Work Phone: [facility] Comment on above: L wrist 11-18-2023 16:05-0400 Heart rate 75 /min Marilee Thakur MD Work Phone: [facility] 11-18-2023 16:05-0400 Respiratory rate 16 /min Marilee Thakur MD Work Phone: [facility] 11-18-2023 16:05-0400 Systolic blood pressure 134 mm[Hg] Marilee Thakur MD Work Phone: [facility] Comment on above: L wrist 11-13-2023 11:09-0400 Body mass index (BMI) [Ratio] 57.05 kg/m2 Mika Kaplan APRN.CNP Work Phone: [facility] 11-13-2023 11:09-0400 Body temperature 98.2 [degF] Mika Older [employer] INSPECTOR Work Phone: [facility] 11-13-2023 11:09-0400 Body weight 117.5 kg Mika Older [employer] INSPECTOR Work Phone: [facility] 11-13-2023 11:09-0400 Diastolic blood pressure 84 mm[Hg] Mika Older [employer]UL[employer] INSPECTOR Work Phone: [facility] 11-13-2023 11:09-0400 Heart rate 60 /min Mika Older [employer]UL[employer] INSPECTOR Work Phone: [facility] 11-13-2023 11:09-0400 Respiratory rate 16 /min Mika Older [employer]BUL[employer] INSPECTOR Work Phone: [facility] 11-13-2023 11:09-0400 SaO2% (BldA) [Mass fraction] 98 % Mika Older [employer].BULB INSPECTOR Work Phone: [facility] 11-13-2023 11:09-0400 Systolic blood pressure 136 mm[Hg] Mika Older [employer].BULB INSPECTOR Work Phone: [facility] 06-02-2023 15:04-0400 Body height 152.[address] Marilee Thakur Work Phone: [facility] 06-02-2023 15:04-0400 Body mass index (BMI) [Ratio] 48.8 kg/m2 Dr. Marilee Thakur Work Phone: [facility] 06-02-2023 15:04-0400 Body weight 113.[address] Marilee Thakur Work Phone: [facility] 12-05-2022 10:40-0400 Body height 143 cm Marilee Thakur Work Phone: [facility] 1500 Work Phone: 12-05-2022 10:40-0400 Body mass index (BMI) [Ratio] 53.24 kg/m2 Marilee Thakur Work Phone: [facility] 1500 Work Phone: 12-05-2022 10:40-0400 Body surface area Derived from formula 1.93 m2 Marilee Thakur Work Phone: [facility]Zfvlvkcu-Remvqo [facility] 1500 Work Phone: 12-05-2022 10:40-0400 Body temperature 98 [degF] Marilee Thakur Work Phone: [facility]Kmrneqyh-Uoxvkm [facility] 1500 Work Phone: 12-05-2022 10:40-0400 Body weight 108.86 kg Marilee Thakur Work Phone: RW-Kjdomoei-Qjpvyb de 1500 Work Phone: 12-05-2022 10:40-0400 Heart rate 60 /min Marilee Thakur Work Phone: MA-Ulucgzka-Ezqfxf de 1500 Work Phone: 12-05-2022 10:40-0400 Respiratory rate 24 /min Marilee Thakur Work Phone: LF[facility]Yhxmbtpe-Cabjzm de 1500 Work Phone: 12-05-2022 10:40-0400 SaO2% (BldA) [Mass fraction] 99 % Marilee Thakur Work Phone: QH[facility]Dkzyixxx-Xrudzt de 1500 Work Phone: 10-23-2022 14:47-0400 Body weight 111.13 kg Mika Older PAN DEVULCANIZER.BULB INSPECTOR Work Phone: [facility] 10-23-2022 14:47-0400 Diastolic blood pressure 78 mm[Hg] Mika Older PAN DEVULCANIZER.BULB INSPECTOR Work Phone: [facility] 10-23-2022 14:47-0400 Heart rate 62 /min Mika Older PAN DEVULCANIZER.BULB INSPECTOR Work Phone: [facility] 10-23-2022 14:47-0400 Respiratory rate 16 /min Mika Older PAN DEVULCANIZER.BULB INSPECTOR Work Phone: [facility] 10-23-2022 14:47-0400 SaO2% (BldA) [Mass fraction] 99 % Mika Older PAN DEVULCANIZER.BULB INSPECTOR Work Phone: [facility] 10-23-2022 14:47-0400 Systolic blood pressure 128 mm[Hg] Mika Older PAN DEVULCANIZER.BULB INSPECTOR Work Phone: [facility] 05-27-2022 14:51-0400 Body height 152.[address] Marilee Thakur Work Phone: [facility] 05-27-2022 14:48-0400 Body mass index (BMI) [Ratio] 49.4 kg/m2 Dr. Marilee Thakur Work Phone: [facility] 05-27-2022 14:48-0400 Body weight 114.[address] Marilee Thakur Work Phone: [facility] 05-27-2022 14:48-0400 Diastolic blood pressure 72 mm[Hg] Dr. Marilee Thakur Work Phone: [facility] 05-27-2022 14:48-0400 Systolic blood pressure 114 mm[Hg] Dr. Marilee Thakur Work Phone: [facility] 05-02-2022 10:50-0500 Body height 142.2 cm Marilee Thakur MD Work Phone: [facility] 05-02-2022 10:50-0500 Body weight 111.58 kg Marilee Thakur MD Work Phone: [facility] 05-02-2022 10:50-0500 Diastolic blood pressure 68 mm[Hg] Marilee Thakur MD Work Phone: [facility] 05-02-2022 10:50-0500 Heart rate 53 /min Marilee Thakur MD Work Phone: [facility] 05-02-2022 10:50-0500 Respiratory rate 16 /min Marilee Thakur MD Work Phone: [facility] 05-02-2022 10:50-0500 SaO2% (BldA) [Mass fraction] 96 % Marilee Thakur MD Work Phone: [facility] 05-02-2022 10:50-0500 Systolic blood pressure 112 mm[Hg] Marilee Thakur MD Work Phone: [facility] 03-21-2022 12:59-0500 Body temperature 98.2 [degF] Mika Older PAN DEVULCANIZER.BULB INSPECTOR Work Phone: [facility] 03-21-2022 12:59-0500 Body weight 112.95 kg Mika Older PAN DEVULCANIZER.BULB INSPECTOR Work Phone: [facility] 03-21-2022 12:59-0500 Diastolic blood pressure 72 mm[Hg] Mika Older PAN DEVULCANIZER.BULB INSPECTOR Work Phone: [facility] 03-21-2022 12:59-0500 Heart rate 60 /min Mika Older PAN DEVULCANIZER.BULB INSPECTOR Work Phone: [facility] 03-21-2022 12:59-0500 Respiratory rate 16 /min Mika Older PAN DEVULCANIZER.BULB INSPECTOR Work Phone: [facility] 03-21-2022 12:59-0500 SaO2% (BldA) [Mass fraction] 99 % Mika Older PAN DEVULCANIZER.BULB INSPECTOR Work Phone: [facility] 03-21-2022 12:59-0500 Systolic blood pressure 118 mm[Hg] Mika Older PAN DEVULCANIZER.BULB INSPECTOR Work Phone: [facility] 01-29-2022 09:48-0500 Body weight 110.68 kg Marilee Thakur MD Work Phone: [facility] 01-29-2022 09:48-0500 Diastolic blood pressure 68 mm[Hg] Marilee Thakur MD Work Phone: [facility] 01-29-2022 09:48-0500 Heart rate 66 /min Marilee Thakur MD Work Phone: [facility] 01-29-2022 09:48-0500 Respiratory rate 16 /min Marilee Thakur MD Work Phone: [facility] 01-29-2022 09:48-0500 SaO2% (BldA) [Mass fraction] 96 % Marilee Thakur MD Work Phone: [facility] 01-29-2022 09:48-0500 Systolic blood pressure 118 mm[Hg] Marilee Thakur MD Work Phone: [facility] 11-29-2021 10:39-0400 Body height 143 cm Marilee Thakur Work Phone: [facility] DO Work Phone: 11-29-2021 10:39-0400 Body mass index (BMI) [Ratio] 52.42 kg/m2 Marilee Thakur Work Phone: [facility] DO Work Phone: 11-29-2021 10:39-0400 Body surface area Derived from formula 1.91 m2 Marilee Thakur Work Phone: [facility] DO Work Phone: 11-29-2021 10:39-0400 Body temperature 97.9 [degF] Marilee Thakur Work Phone: [facility] DO Work Phone: 11-29-2021 10:39-0400 Body weight 107.19 kg Marilee Thakur Work Phone: [facility] DO Work Phone: 11-29-2021 10:39-0400 Diastolic blood pressure 90 mm[Hg] Marilee Thakur Work Phone: [facility] DO Work Phone: 11-29-2021 10:39-0400 Heart rate 60 /min Marilee Thakur Work Phone: [facility] DO Work Phone: 11-29-2021 10:39-0400 Systolic blood pressure 141 mm[Hg] Marilee Thakur Work Phone: [facility] DO Work Phone: 10-29-2021 09:56-0400 Body height 142.2 cm Marilee Thakur MD Work Phone: [facility] 10-29-2021 09:56-0400 Body temperature 99.5 [degF] Marilee Thakur MD Work Phone: [facility] 10-29-2021 09:56-0400 Body weight 109.77 kg Marilee Thakur MD Work Phone: [facility] 10-29-2021 09:56-0400 Diastolic blood pressure 62 mm[Hg] Marilee Thakur MD Work Phone: [facility] 10-29-2021 09:56-0400 Heart rate 56 /min Marilee Thakur MD Work Phone: [facility] 10-29-2021 09:56-0400 Respiratory rate 16 /min Marilee Thakur MD Work Phone: [facility] 10-29-2021 09:56-0400 SaO2% (BldA) [Mass fraction] 95 % Marilee Thakur MD Work Phone: [facility] 10-29-2021 09:56-0400 Systolic blood pressure 118 mm[Hg] Marilee Thakur MD Work Phone: [facility] 08-20-2021 15:53-0400 Body weight 110.22 kg Rae Older PAN DEVULCANIZER.BULB INSPECTOR Work Phone: [facility] 08-20-2021 15:53-0400 Diastolic blood pressure 78 mm[Hg] Rae Older PAN DEVULCANIZER.BULB INSPECTOR Work Phone: [facility] 08-20-2021 15:53-0400 Heart rate 64 /min Rae Older PAN DEVULCANIZER.BULB INSPECTOR Work Phone: [facility] 08-20-2021 15:53-0400 Systolic blood pressure 132 mm[Hg] Rae Older PAN DEVULCANIZER.BULB INSPECTOR Work Phone: [facility] 06-28-2021 09:56-0400 Body temperature 98.6 [degF] Marilee Thakur MD Work Phone: [facility] 06-28-2021 09:56-0400 Body weight 109.77 kg Marilee Thakur MD Work Phone: [facility] 06-28-2021 09:56-0400 Diastolic blood pressure 86 mm[Hg] Marilee Thakur MD Work Phone: [facility] 06-28-2021 09:56-0400 Heart rate 51 /min Marilee Thakur MD Work Phone: [facility] 06-28-2021 09:56-0400 Respiratory rate 18 /min Marilee Thakur MD Work Phone: [facility] 06-28-2021 09:56-0400 SaO2% (BldA) [Mass fraction] 99 % Marilee Thakur MD Work Phone: [facility] 06-28-2021 09:56-0400 Systolic blood pressure 136 mm[Hg] Marilee Thakur MD Work Phone: [facility] 05-03-2021 11:33-0500 Body mass index (BMI) [Ratio] 50.2 kg/m2 Marilee Thakur Work Phone: [facility]Evqpimgp[facility]Khikqm [facility] 1500 Work Phone: 05-03-2021 11:33-0500 Body surface area Derived from formula 1.88 m2 Marilee Thakur Work Phone: XY-Kefkdhzg-Euejyb de 1500 Work Phone: 05-03-2021 11:33-0500 Body temperature 97.2 [degF] Marilee Thakur Work Phone: RT-Abiosemj-Iylugb de 1500 Work Phone: 05-03-2021 11:33-0500 Body weight 102.65 kg Marilee Reddyta Work Phone: VI-Edrvndpr-Ywdvyn de 1500 Work Phone: 05-03-2021 11:33-0500 Diastolic blood pressure 83 mm[Hg] Marilee C Ganta Work Phone: KK-Tptccrsw-Zugytr de 1500 Work Phone: 05-03-2021 11:33-0500 Heart rate 83 /min Marilee Mark Ganta Work Phone: HV-Yuthhlkk-Rpurra de 1500 Work Phone: 05-03-2021 11:33-0500 Respiratory rate 22 /min Marilee Mark Ganta Work Phone: QR-Lzkifmeq-Sujges de 1500 Work Phone: 05-03-2021 11:33-0500 Systolic blood pressure 136 mm[Hg] Marilee Flores Ganta Work Phone: RC-Xnbvwvrg-Rkppxv de 1500 Work Phone: 11-05-2018 12:32-0400 BMI (Body Mass Index) 52.81 kg/m2 Mima-Luz Schillaci ZW-Bmpvipgd-Wrfipd de Work Phone: 11-05-2018 12:32-0400 Body weight 108 kg Mima-Luz Schillaci FI-Dzixhipt-Aolfzi de Work Phone: 11-05-2018 12:32-0400 BP Diastolic 97 mm[Hg] Mima-Luz Schillaci BG-Gmssmyjl-Mmvizp de Work Phone: Comment on above: Location: LLE; Position: Sitting 11-05-2018 12:32-0400 BP Systolic 139 mm[Hg] Mima-Luz Schillaci CW-Khvsnihd-Teintx de Work Phone: Comment on above: Location: LLE; Position: Sitting 11-05-2018 12:32-0400 BSA (Body Surface Area) 1.92 m2 Smita SHEN[facility] de Work Phone: 11-05-2018 12:32-0400 Height 143 cm Smita [facility]-Clay hernandez Work Phone: 11-05-2018 12:32-0400 Pulse (Heart Rate) 62 /min Smita [facility] de Work Phone: Encounters Encounter Date Encounter Type Care Provider Facility Start: 10-06-2024 End: 10-06-2024 ambulatory [facility] Ambulatory Start: 10-05-2024 End: 10-05-2024 Patient encounter procedure Hilda Jeong DO Work Phone: Vascular Surgery Comment on above: Lymphedema (Primary Dx) Start: 10-05-2024 End: 10-05-2024 ambulatory HILDA JEONG Facility:[facility] Start: 10-04-2024 End: 10-07-2024 Refill Marilee Thakur MD Work Phone: [facility] [place] Comment on above: Refill Request Start: 09-28-2024 End: 09-28-[address] TIA MORRISON MD Facility:[facility] Start: 09-28-2024 End: 09-28-2024 Patient encounter procedure MAVIS MASON MD [facility] Start: 09-27-2024 End: 09-29-2024 Telephone encounter Marilee Thakur MD Work Phone: [facility] [place] Comment on above: Medication Request Start: 09-21-2024 End: 09-24-2024 Refill Marilee Thakur MD Work Phone: [facility] [place] Comment on above: Refill Request Start: 09-13-2024 End: 09-13-2024 Office outpatient visit 40 minutes Marilee Thakur MD Work Phone: [facility] [place] Comment on above: Moderate persistent asthma, unspecified whether complicated (HCC) (Primary Dx); Prader-Willi syndrome (HCC); Pulmonary hypertension (HCC); Acute diastolic congestive heart failure (HCC); Obstructive sleep apnea syndrome; Acquired hypothyroidism; Acute on chronic diastolic congestive heart failure (HCC); Obesity hypoventilation syndrome (HCC); Cardiac arrest (HCC); Morbid obesity (HCC) Start: 09-13-2024 End: 09-13-2024 ambulatory MARILEE THAKUR Facility:[facility] Start: 09-13-2024 End: 09-13-2024 Telephone encounter Marilee Thakur MD Work Phone: [facility] [place] Comment on above: physcial therapy cristina n of care Start: 09-07-2024 End: 09-07-2024 Refill Marilee Thakur MD Work Phone: [facility] [place] Comment on above: Refill Request Start: 09-03-2024 End: 09-07-2024 Telephone encounter Marilee Thakur MD Work Phone: [facility] [place] Comment on above: home health calling Start: 08-31-2024 ambulatory [facility] Facility:[facility] Start: 08-20-2024 End: 08-27-2024 Evaluation and management of inpatient ANSELMO FALK MD [facility] Start: 08-16-2024 ambulatory [facility] Facility:[facility] Start: 08-16-[address] Tia Morrison MD -[facility] Start: 08-10-2024 End: 09-10-2024 ambulatory Marilee Thakur MD Work Phone: [facility] Start: 08-09-2024 End: 08-09-[address] Marilee Thakur MD Work Phone: [facility] Work Phone: Start: 08-09-2024 End: 08-09-[address] Tia Morrison MD -[facility] Start: 08-09-2024 End: 08-09-2024 ambulatory Tia OLIVO Facility:[facility] Start: 08-03-2024 ambulatory [facility] Facility:[facility] Start: 08-03-[address] Tia Morrison MD -[facility] Start: 07-26-2024 ambulatory [facility] Facility:[facility] Start: 07-26-[address] Tia Morrison MD -[facility] Start: 07-12-2024 ambulatory [facility] Facility:[facility] Start: 07-12-[address] Tia Morrison MD -[facility] Start: 07-06-2024 End: 07-06-2024 [facility] Start: 07-06-2024 End: 07-06-2024 Patient encounter procedure Jailene Kirkland MA [facility] [place] Comment on above: Population Health Na vigation Outreach ([facility] ) Start: 07-05-2024 ambulatory [facility] Facility:[facility] Start: 07-05-[address] Tia Morrison MD -[facility] Start: 2024 ambulatory [facility] Facility:[facility] Start: [address] Tia Morrison MD -[facility] Start: 06-21-2024 ambulatory Tia OLIVO Facili ty:[facility] Start: 06-21-[address] Tia Morrison MD -[facility] Start: 06-18-2024 ambulatory [facility] Facility:[facility] Start: 06-18-[address] Tia Morrison MD -[facility] Start: 06-11-2024 ambulatory [facility] Start: 06-03-2024 End: 06-03-2024 Telephone encounter Marilee Thakur MD Work Phone: [facility] [place] Comment on above: Home Health Recertif ication Start: 05-30-2024 End: 06-17-2024 ambulatory FRANKLYN STAPLETON MD Facility:[facility] Start: 05-26-2024 End: 05-26-2024 ambulatory Aakash Manuel RN [facility] Comment on above: Initial enrollment o rene for Chronic Disease Management Start: 05-20-2024 End: 05-20-2024 Refill Marilee Thakur MD Work Phone: [facility] [place] Comment on above: Refill Request Start: 05-13-2024 End: 05-30-2024 Evaluation and management of inpatient NOEMI WEST MD [facility] Start: 05-12-2024 End: 05-13-2024 Emergency department patient visit NOEMI WEST MD Facility:[facility] Start: 05-10-2024 End: 05-10-2024 ambulatory MIKA KAPLAN Facility:[facility] Start: 05-10-2024 End: 05-10-2024 Patient encounter procedure Mika Kalpan APRN.CNP Work Phone: [facility] [place] Comment on above: Cellulitis of left l ower extremity (Primary Dx); Anxiety; 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) Start: 05-08-2024 End: 05-08-2024 Emergency department patient visit JAMILA DARDEN MD [facility] Start: 05-05-2024 End: 05-06-2024 Telephone encounter Marilee Thakur MD Work Phone: [facility] [place] Comment on above: requesting verbal or fallon Start: 05-04-2024 End: 05-04-2024 ambulatory ISI GOODMAN [facility] Start: 05-04-2024 End: 05-04-2024 Office outpatient visit 15 minutes Isi Goodman MD Work Phone: [facility] Comment on above: Chronic right-sided heart failure (Primary Dx); Right ventricular dysfunction; Prader-Willi syndrome (HHS-HCC); Bilateral lower extremity edema Start: 05-03-2024 End: 05-03-2024 Office consultation new/estab patient 80 min Keely Ordonez MD Work Phone: [facility] [place] Comment on above: Hyperglycemia (Prima ry Dx); Prader-Willi syndrome (HHS-HCC); Hypothyroidism, unspecified type; Hyperlipidemia, unspecified hyperlipidemia type; Class 3 severe obesity with serious comorbidity and body mass index (BMI) of 50.0 to 59.9 in adult, unspecified obesity type Start: 05-03-2024 End: 05-03-2024 ambulatory [facility] Start: 05-02-2024 Non-patient / Non-visit Dr. Ivy ZARATE [facility] Work Phone: Start: 05-01-2024 Non-patient / Non-visit Dr. Ivy ZARATE [facility] Work Phone: Start: 04-30-2024 Non-patient / Non-visit Dr. Ivy ZARATE [facility] Work Phone: Start: 04-29-2024 End: 04-30-2024 Telephone encounter Marilee Thakur MD Work Phone: [facility] [place] Comment on above: Patient Update Start: 04-29-2024 Non-patient / Non-visit Dr. Ivy ZARATE [facility] Work Phone: Start: 04-29-2024 Non-patient / Non-visit Dr. Cinthia Torres MD [facility] [facility] Work Phone: Start: 04-29-2024 ambulatory Cinthia Torres Facility :[facility] Start: 04-28-2024 End: 05-02-2024 Evaluation and management of inpatient Dr. Marbin Lizama DO [facility] Work Phone: Start: 04-28-2024 ambulatory Marbin Lizama [facility] Start: 04-27-2024 End: 04-30-2024 Telephone encounter Marilee Thakur MD Work Phone: [facility] [place] Comment on above: Patient Update Start: 04-21-2024 End: 06-21-2024 Follow-up encounter Mika Kaplan PAN DEVULCANIZER.BULB INSPECTOR Work Phone: [facility] [place] Comment on above: Results Start: 04-14-2024 End: 04-14-2024 ambulatory MIKA KAPLAN Facility:[facility] Start: 04-14-2024 End: 04-14-2024 Subsequent hospital visit by physician [facility] Work Phone: Radiology Comment on above: Abdominal mass, unsp ecified abdominal location [R19.00] Start: 04-12-2024 End: 04-12-2024 Telephone encounter Marilee Thakur MD Work Phone: [facility] [place] Comment on above: Medication Problem Start: 04-09-2024 End: 04-12-2024 Telephone encounter Marilee Thakur MD Work Phone: [facility] [place] Comment on above: Medication Problem Start: 04-08-2024 End: 04-08-2024 Telephone encounter Marilee Thakur MD Work Phone: [facility] [place] Comment on above: [facility] work Start: 04-06-2024 End: 04-09-2024 Telephone encounter Marilee Thakur MD Work Phone: [facility] [place] Comment on above: Patient Update Start: 04-06-2024 End: 04-06-2024 ambulatory HILDA JEONG Facility:[facility] Start: 04-06-2024 End: 04-06-2024 Patient encounter procedure Hilda Jeong DO Work Phone: Vascular Surgery Comment on above: Lymphedema; Prader-Willi syndrome Start: 04-02-2024 End: 04-02-2024 Telephone encounter Marilee Thakur MD Work Phone: [facility] [place] Comment on above: Orders Start: 04-01-2024 End: 04-01-2024 ambulatory MARILEE THAKUR Facility:[facility] Start: 04-01-2024 End: 04-01-2024 Patient encounter procedure Mika Kaplan PAN DEVULCANIZER.BULB INSPECTOR Work Phone: [facility] [place] Comment on above: Acquired hypothyroid ism (Primary [...] Marilee Thakur MD Work Phone: [facility] [place] Start: 03-23-2024 End: 03-23-2024 ambulatory [facility] Start: 03-23-2024 End: 03-23-2024 Office outpatient visit 15 minutes Isi Goodman MD Work Phone: [facility] Comment on above: Chronic right-sided heart failure (Primary Dx); Dyspnea on exertion; Morbid obesity (Multi); Prader-Willi syndrome (HHS-HCC); Shortness of breath; Bilateral lower extremity edema Start: 03-23-2024 End: 03-23-2024 ambulatory ISI GOODMAN [facility] Start: 03-16-2024 End: 03-17-2024 Telephone encounter Marilee Thakur MD Work Phone: [facility] [place] Comment on above: Patient Update Start: 03-12-2024 End: 03-12-2024 Telephone encounter Marilee Thakur MD Work Phone: [facility] [place] Comment on above: Patient Update Start: 03-12-2024 End: 03-12-2024 ambulatory MARILEE THAKUR Facility:[facility] Start: 03-12-2024 End: 03-12-2024 Patient encounter [...] encounter Mika Kaplan APRN.CNP Work Phone: Internal [facility] Comment on above: Medication Question Start: 03-09-2024 End: 03-12-2024 ambulatory Marilee Thakur MD Work Phone: [facility] Start: 03-09-2024 End: 03-12-2024 Telephone encounter Marilee Thakur MD Work Phone: [facility] [place] Comment on above: Order Request Start: 02-28-2024 ambulatory Leon Arias Fac ility:[facility] Start: 02-28-2024 End: 03-01-2024 Evaluation and management of inpatient Leon Arias Facility:[facility] Start: 02-27-2024 End: 02-27-2024 Patient Outreach Bradley Flores RN Work Phone: [facility] Comment on above: Initial phone contac t for Transitional Care Management Start: 02-27-2024 End: 02-27-2024 Emergency department patient visit JAMILA DARDEN MD [facility] Start: 02-25-2024 ambulatory Forman Carroll Facility[facility] Start: 02-24-2024 End: 02-24-2024 ambulatory Cindy Collier Facility:[facility] Start: 02-24-2024 End: 02-26-2024 Evaluation and management of inpatient Cindy Collier Facility:[facility] Start: 02-24-2024 ambulatory Cindy Collier [facility] Start: 02-24-2024 End: 02-24-2024 Telephone encounter Marilee Thakur MD Work Phone: Internal [facility] Comment on above: Patient Update Start: 02-23-2024 End: 02-23-2024 Telephone encounter Marilee Thakur MD Work Phone: [facility] [place] Comment on above: [facility] work, verbal order Start: 02-20-2024 End: 02-20-2024 Patient Outreach Bradley Flores RN Work Phone: [facility] Comment on above: Initial phone contac t for Transitional Care Management Start: 02-17-2024 ambulatory Marbin Lizama Fac ility:[facility] Start: 02-17-2024 End: 02-19-2024 Evaluation and management of inpatient Marbin Lizama Facility:[facility] Start: 02-16-2024 End: 02-16-2024 ambulatory [facility] Facility:[facility] Start: 02-16-2024 End: 02-16-2024 Office outpatient visit 25 minutes Marilee Thakur MD Work Phone: [facility] [place] Comment on above: Acute systolic conge stive heart failure (HCC) (Primary Dx); Lymphedema; Hypotension, unspecified hypotension type; Acute on chronic diastolic congestive heart failure (HCC); Chronic obstructive pulmonary disease, unspecified COPD type (HCC); Hypothalamic hypogonadism (HCC); Prader-Willi syndrome Start: 02-13-2024 End: 02-13-2024 [facility] Facility:[facility] Start: 02-10-2024 End: 02-10-2024 Telephone encounter Marilee Thakur MD Work Phone: [facility] [place] Comment on above: [facility] work-verbal orders Start: 02-09-2024 End: 02-09-2024 Refill Marilee Thakur MD Work Phone: [facility] [place] Comment on above: Refill Request Start: 02-06-2024 End: 02-06-2024 [facility] Facility:[facility] Start: 02-06-2024 End: 02-06-2024 Transitional care manage srvc 7 day discharge Marilee Thakur MD Work Phone: [facility] [place] Comment on above: Right-sided congesti ve heart failure secondary to left-sided congestive heart failure (HCC) (Primary Dx); Acute on chronic diastolic congestive heart failure (HCC); Nonrheumatic mitral valve regurgitation; Pulmonary hypertension (HCC); Chronic obstructive pulmonary disease, unspecified COPD type (HCC); Hypothalamic hypogonadism (HCC); Anasarca Start: 02-04-2024 End: 02-04-2024 Patient Outreach Bradley Flores RN Work Phone: [employer] Comment on above: Weekly phone contact (Recurring) for Transitional Care Management Start: 02-03-2024 End: 02-04-2024 Telephone encounter Marilee Thakur MD Work Phone: [facility] [place] Comment on above: Home Health Orders Start: 02-02-2024 End: 02-02-2024 Refill Marilee Thakur MD Work Phone: [facility] [place] Comment on above: Refill Request Start: 01-28-2024 End: 01-28-2024 Patient Outreach Bradley Flores RN Work Phone: [employer] Comment on above: Initial phone contac t for Transitional Care Management Start: 01-27-2024 End: 01-27-2024 Subsequent hospital visit by physician Chilango Owen [facility] Comment on above: Dyspnea on exertion; Bilateral lower extremity edema Start: 01-27-2024 End: 01-27-2024 ambulatory [address]I R [facility] Start: 01-23-2024 End: 01-23-2024 Telephone encounter Mika Kaplan APRN.CNP Work Phone: [facility] [place] Comment on above: Patient Update Start: 01-23-2024 End: 01-26-2024 Evaluation and management of inpatient Cinthia Torres Facility:[facility] Start: 01-22-2024 End: 01-22-2024 ambulatory Martell Garland RN Work Phone: [employer] Start: 01-22-2024 End: 01-23-2024 Telephone encounter Marilee Thakur MD Work Phone: [facility] [place] Comment on above: Request for referral to PT/OT Start: 01-22-2024 End: 01-22-2024 Telephone follow-up Martell Garland RN Work Phone: [employer] Comment on above: Transition Of Care ( [facility] Follow-up Day 20) Started Weekly phone contact (Recurring) for Transitional Care Management Start: 01-20-2024 End: 01-20-2024 ambulatory [facility] Start: 01-20-2024 End: 01-20-2024 ambulatory ISI GOODMAN [facility] Start: 01-20-2024 End: 01-20-2024 Office outpatient new 45 minutes Isi Goodman MD Work Phone: [facility] Comment on above: Acute on chronic rig [...] above: Orders Start: 01-12-2024 End: 01-12-2024 ambulatory [facility] Facility:[facility] Start: 01-12-2024 End: 01-12-2024 Transitional care manage srvc 14 day discharge Marilee Thakur MD Work Phone: [facility] [place] Comment on above: Hospital discharge f ollow-up (Primary Dx); Encounter for immunization; Acute congestive heart failure, unspecified heart failure type (HCC); Pulmonary hypertension (HCC); Right ventricular dysfunction Start: 01-08-2024 End: 01-08-2024 Emergency department patient visit [facility] Facility:[facility] Start: 01-07-2024 End: 01-07-2024 Telephone encounter Marilee Thakur MD Work Phone: [facility] [place] Comment on above: Patient Update; weig ht increasing Start: 01-06-2024 End: 01-08-2024 Patient Outreach Martell Garland RN Work Phone: [employer] Comment on above: Transition Of Care ( TCM [facility] Discharge 01/01/25) Initial phone contact for Transitional Care Management, Started Weekly phone contact (Recurring) for Transitional Care Management Patient Update Start: 12-26-2023 End: 01-02-2024 Evaluation and management of inpatient [facility] Facility:[facility] Start: 12-26-2023 ambulatory Malorie Siegel Facility :[facility] Start: 12-25-2023 End: 12-26-2023 Telephone encounter Marilee Thakur MD Work Phone: [facility] [place] Comment on above: Patient Update Start: 12-23-2023 End: 12-23-2023 Emergency department patient visit [facility] Facility:[facility] Start: 12-22-2023 End: 12-22-2023 Telephone encounter Marilee Thakur MD Work Phone: [facility] [place] Comment on above: Medication Question Start: 12-21-2023 End: 12-21-2023 Emergency department patient visit TABATHA PAGE DO [facility] Start: 12-18-2023 End: 12-22-2023 Telephone encounter Marilee Thakur MD Work Phone: [facility] [place] Comment on above: Medication Problem Start: 12-17-2023 End: 12-17-2023 Telephone encounter Marilee Thakur MD Work Phone: [facility] [place] Comment on above: Patient Update Start: 12-12-2023 End: 12-12-2023 Telephone encounter Marilee Thakur MD Work Phone: [facility] [place] Comment on above: weight gain Start: 12-05-2023 End: 12-08-2023 Telephone encounter Marilee Thakur MD Work Phone: [facility] [place] Comment on above: recert patient for s killed nursing service Start: 12-04-2023 End: 12-04-2023 ambulatory [facility] Start: 11-24-2023 End: 11-24-2023 Refill Marilee Thakur MD Work Phone: [facility] [place] Comment on above: Refill Request Start: 11-18-2023 End: 11-18-2023 Office outpatient visit 25 minutes Marilee Thakur MD Work Phone: [facility] [place] Comment on above: Lymphedema (Primary Dx) Start: 11-18-2023 End: 11-18-2023 ambulatory [facility] Facility:[facility] Start: 11-18-2023 End: 11-18-2023 ambulatory [facility] Facility:[facility] Start: 11-13-2023 End: 11-13-2023 Telephone encounter Mika Kaplan APRN.BULB INSPECTOR Work Phone: [facility] [place] Comment on above: Results Start: 11-13-2023 End: 11-13-2023 ambulatory MIKA KAPLAN Facility:[facility] Start: 11-13-2023 End: 11-13-2023 Patient encounter procedure Mika Kaplan APRN.BULB INSPECTOR Work Phone: [facility] [place] Comment on above: Cellulitis of left l ower extremity (Primary Dx); Pain of left lower extremity; Edema, unspecified type Start: 11-12-2023 End: 11-13-2023 Telephone encounter Marilee Thakur MD Work Phone: [facility] [place] Comment on above: Patient Update Start: 10-30-2023 End: 10-31-2023 Emergency department patient visit [facility] Facility:[facility] Start: 10-25-2023 End: 10-25-2023 ambulatory [facility] Facility:[facility] Start: 10-09-2023 Telephone encounter Marilee hughes MD Work Phone: [facility] [place] Comment on above: recert orders Patient Update Start: 09-19-2023 Refill Marilee Bowling Work Phone: [facility] [place] Comment on above: Refill Request Start: 09-17-2023 End: 09-17-2023 ambulatory [facility] Facility:[facility] Start: 08-22-2023 Refill Marilee Bowling Work Phone: [facility] [place] Comment on above: Refill Request Start: 08-11-2023 Refill Mika Kaplan PAN DEVULCANIZER .BULB INSPECTOR Work Phone: Internal [facility] [place] Comment on above: Refill Request Start: 08-07-2023 Telephone encounter Marilee hughes MD Work Phone: [facility] [place] Start: 08-06-2023 Refill Marilee Bowling Work Phone: Family [facility] Comment on above: Refill Request Start: 07-28-2023 Refill Marilee Bowling Work Phone: [facility] [place] Comment on above: error Start: 07-21-2023 Refill Marilee Bowling Work Phone: Internal [facility] [place] Comment on above: Refill Request Start: 07-07-2023 Refill Latesha NORIEGABULB INSPECTOR Work Phone: Internal [facility] [place] Comment on above: Refill Request Start: 07-04-2023 End: 07-04-[address] Marilee Thakur Work Phone: [facility] Work Phone: Start: 07-04-2023 End: 07-04-[address] Marilee Thakur Work Phone: [facility] Work Phone: Start: 06-12-2023 Refill Mika Kaplan PAN DEVULCANIZER .BULB INSPECTOR Work Phone: [facility] [place] Comment on above: Refill Request Start: 06-02-2023 End: 06-02-[address] Marilee Thakur Work Phone: [facility] Work Phone: Start: 05-30-2023 Telephone encounter Mika Kaplan PAN DEVULCANIZER.BULB INSPECTOR Work Phone: Family [facility] [place] Comment on above: Orders Start: 05-26-2023 Telephone encounter Marilee hughes MD Work Phone: [facility] [place] Comment on above: Insurance Authorizat ion Start: 02-04-2023 Refill Mika Older PAN DEVULCANIZER .BULB INSPECTOR Work Phone: [facility] [place] Comment on above: Refill Request Start: 01-20-2023 Refill Marilee Bowling Work Phone: [facility] [place] Comment on above: Refill Request Start: 12-12-2022 Refill Marilee Bowling Work Phone: [facility] [place] Comment on above: Refill Request Start: 12-05-2022 Office outpatient vi sit 40 minutes Marilee Thakur Work Phone: [id number] Work Phone: Start: 10-23-2022 End: 10-23-2022 Refill Mika Older PAN DEVULCANIZER.BULB INSPECTOR Work Phone: [facility] [place] Comment on above: Refill Request Lymphedema (Primary Dx); Obstructive sleep apnea syndrome; Acquired hypothyroidism; Mild intermittent asthma without complication Start: 10-10-2022 Telephone encounter Marilee hughes MD Work Phone: [facility] [place] Comment on above: Patient Question Start: 10-08-2022 ambulatory Marilee Bowling Work Phone: Internal [facility] Start: 10-08-2022 Telephone encounter Marilee hughes MD Work Phone: [facility] [place] Comment on above: Medication Problem Start: 08-26-2022 Refill Marilee Bowling Work Phone: [facility] [place] Comment on above: Refill Request Start: 08-23-2022 Refill Mika Older PAN DEVULCANIZER .BULB INSPECTOR Work Phone: [facility] [place] Comment on above: Refill Request Start: 08-07-2022 Refill Mika Older PAN DEVULCANIZER .BULB INSPECTOR Work Phone: [facility] [place] Comment on above: Refill Request Start: 07-18-2022 Refill Marilee Bowling Work Phone: [address] [place] [address] Comment on above: Refill Request Start: 06-18-2022 End: 06-18-[address] Marilee Thakur Work Phone: [facility] Work Phone: Start: 06-18-2022 End: 06-18-[address] Marilee Thakur Work Phone: [facility] Start: 06-06-2022 Telephone encounter Marilee hughes MD Work Phone: [facility] [place] Comment on above: Orders (Medication A dministration Consent ) Start: 06-04-2022 Refill Mika Older PAN DEVULCANIZER .BULB INSPECTOR Work Phone: Internal [facility] Comment on above: Refill Request Start: 05-27-2022 End: 05-27-[address] Marilee Thakur Work Phone: [facility] Start: 05-15-2022 Refill Mika Older PAN DEVULCANIZER .BULB INSPECTOR Work Phone: Internal [facility] Comment on above: Refill Request Start: 05-02-2022 End: 05-02-2022 Patient encounter procedure Marilee Thakur MD Work Phone: [facility] [place] Comment on above: Annual physical exam (Primary Dx); Hypothalamic hypogonadism (HCC); Prader-Willi syndrome; Obstructive sleep apnea syndrome; Mild intermittent asthma without complication; Acquired hypothyroidism; Lymphedema of left lower extremity Start: 03-21-2022 End: 03-21-2022 Patient encounter procedure Mika Kaplan PAN DEVULCANIZER.BULB INSPECTOR Work Phone: [facility] [place] Comment on above: Bilateral chronic kn ee pain (Primary Dx); Acute cough Start: 02-05-2022 Refill Mika Older PAN DEVULCANIZER .BULB INSPECTOR Work Phone: Internal [facility] Comment on above: Refill Request Start: 01-29-2022 End: 01-29-2022 Patient encounter procedure Marilee Thakur MD Work Phone: [facility] [place] Comment on above: Obstructive sleep ap shelby syndrome (Primary Dx); Encounter for immunization; Mild intermittent asthma without complication; Acquired hypothyroidism; Lymphedema of right lower extremity; Lymphedema of left lower extremity; Sleep deprivation Start: 01-07-2022 Telephone encounter Marilee hughes MD Work Phone: [facility] [place] Comment on above: Orders; handicap cristina card rx Start: 12-13-2021 Telephone encounter Marilee hughes MD Work Phone: [facility] [place] Comment on above: Patient Question Start: 11-29-2021 Telephone encounter Marilee hughes MD Work Phone: [facility] [place] Comment on above: Orders Start: 11-29-2021 Patient encounter procedure Marilee Thakur Work Phone: [facility] [address] DO Work Phone: Start: 10-29-2021 End: 10-29-2021 Patient encounter procedure Marilee Thakur MD Work Phone: [facility] [place] Comment on above: Prader-Willi syndrom e (Primary Dx); Skin ulcer, limited to breakdown of skin (HCC); Pedal edema; Mild persistent asthma without complication; Obstructive sleep apnea syndrome Start: 09-20-2021 Refill Marilee Bowling Work Phone: [facility] [place] Comment on above: Refill Request Start: 09-04-2021 Refill Yazan CRISTOBALN.BULB INSPECTOR Work Phone: [facility] [place] Comment on above: Refill Request Start: 08-29-2021 Telephone encounter Marilee hughes MD Work Phone: [facility] [place] Comment on above: Home health update Start: 08-20-2021 End: 08-20-2021 Patient encounter procedure Rae Older PAN DEVULCANIZER.BULB INSPECTOR Work Phone: [facility] [place] Comment on above: Skin ulcer of left t high, limited to breakdown of skin (HCC) (Primary Dx) Start: 08-14-2021 Refill Yazan Hanna PRN.BULB INSPECTOR Work Phone: [facility] [place] Comment on above: Refill Request Start: 07-06-2021 Telephone encounter Marilee hughes MD Work Phone: [facility] [place] Comment on above: Order request Start: 06-28-2021 Telephone encounter Marilee hughes MD Work Phone: [facility] [place] Comment on above: PT Order Question Start: [...] [place] Comment on above: [facility] work (verbal order needed) Start: 06-13-2021 Telephone encounter Marilee hughes MD Work Phone: [facility] [place] Comment on above: Forms Start: 06-06-2021 Telephone encounter Marilee hughes MD Work Phone: [facility] [place] Comment on above: Results Start: 05-31-2021 End: 05-31-2021 Subsequent hospital visit by physician [facility] [address] Radiology Comment on above: Left groin pain [R10 .32] Start: 05-03-2021 Nutrition therapy Marilee hughes Work Phone: [id number] Work Phone: Start: 05-03-2021 Patient encounter procedure Marilee Thakur Work Phone: [id number] [address] Work Phone: Start: 12-02-2019 Patient encounter procedure [facility] Work Phone: Start: 08-05-2019 Patient encounter procedure [facility] Work Phone: Start: 05-06-2019 Patient encounter procedure [facility] Work Phone: Start: 11-05-2018 Patient encounter procedure [facility] Work Phone: Start: 05-07-2018 Patient encounter procedure [facility] Work Phone: Start: 09-04-2017 Patient encounter procedure [facility] Work Phone: Start: 01-01-2017 End: 01-01-2017 Ambulatory [facility] Facility:[facility] Start: 12-31-2016 Patient encounter procedure [facility] Work Phone: Start: 12-13-2016 Patient encounter procedure [facility] Work Phone: Start: 12-10-2016 Patient encounter procedure [facility] Work Phone: Start: 12-05-2016 Patient encounter procedure [facility] Work Phone: Procedures Date Procedure Procedure Detail Performing Clinician Start: 06-21-2024 Vitamin D, 25-hydrox y measurement Dr. Marilee Thakur MD Work Phone: Comment on above: Vitamin D StatusDefi ciency: <20 ng/mL (50nmol/L)Insufficiency: 20-30 ng/mL (50-75 nmol/L)Sufficiency: 30-100 ng/mL (75-250 nmol/L)Toxicity: >100 ng/mL (>250 nmol/L) Start: 05-04-2024 Hemoglobin glycosylated a1c Keely Ordonez MD Work Phone: Start: 05-04-2024 Renal function panel Ma tracey Ordonez MD Work Phone: Start: 05-04-2024 End: 05-04-2024 Thyrotropin [Units/volume] in Serum or Plasma Keely Ordonez MD Work Phone: Start: 05-04-2024 Thyroxine (T4) free [Mass/volume] in Serum or Plasma Keely Ordonez MD Work Phone: Start: 05-02-[address] Marilee Thakur MD Work Phone: Start: 05-02-2024 Measurement of renal function Dr. Marilee Thakur MD Work Phone: Comment on above: GFR Calc Start: 04-28-2024 X-ray of chest, PA a nd lateral views Dr. Marilee Thakur MD Work Phone: Start: 04-28-2024 Urnls dip stick/tabl et reagent auto microscopy Dr. Marilee Thakur MD Work Phone: Start: 04-01-2024 Urnls dip stick/tabl et rgnt auto w/o microscopy Mika Kaplan APRN.CNP Work Phone: Start: 01-27-2024 Echo tthrc r-t 2d w/ wom-mode compl spec&colr d Isi Goodman MD Work Phone: Start: 07-04-2023 Screening mammography D paige Thakur Work Phone: Start: 12-05-2022 Medical nutrition re-assmt&ivntj indiv ea 15 m Marilee Thakur Work Phone: Start: 06-18-2022 Screening mammography D paige Thakur Work Phone: Start: 01-29-2022 PFIZER-BIONTECH COVI D-19 BIVALENT BOOSTER VACCINE, AGE 12+ YR Marilee Thakur MD Work Phone: Start: 10-29-2021 Adult depression scr eening assessment Marilee Thakur MD Work Phone: Start: 05-31-2021 Us compl joint r-t w /image documentation Marilee Thakur MD Work Phone: Start: 04-17-2020 Lipid 1996 panel - S uliess or Plasma Isi Goodman MD Work Phone: [...] of No histor y of surgery Lexus Moralezosiris No history of surgery Marilee Thakur Work Phone: Plan of Treatment Date Care Activity Detail Author Start: 2032 Zoster Vaccines (1 of 2) Zoster Vacc skyla (1 of 2) [facility] Start: 05-22-2026 HPV TESTING HPV TESTING [facility] Start: 05-22-2026 PAP TESTING PAP TESTING [facility] Start: 05-22-2026 Screening for malign ant neoplasm of cervix [facility] Start: 10-04-2025 End: 10-04-2025 Patient encounter procedure 10/04/2025 10:30 AM EDT Office Visit Vascular Surgery [address] [place] [address] Hilda Jeong, [address] [place] [address] 1 year follow up Vascular Surgery Comment on above: 1 year follow up Start: 09-13-2025 Annual PCP Team [facility] [employer] brenda Disease Visit Annual PCP Team Chronic Disease Visit [facility] Start: 05-10-2025 Annual PCP Team [place] [facility] Nursery Transplanter brenda Disease Visit Annual PCP Team Chronic Disease Visit [facility] Start: 05-04-2025 Creatinine measurement Creatinine [facility] Start: 05-04-2025 Potassium measurement Potassium [facility] Start: 05-04-2025 Thyroid stimulating hormone measurement TSH Level [facility] Start: 04-17-2025 Lipid panel Lipid Panel [facility] Start: 04-01-2025 Annual PCP Team [place] [facility] Nurs[facility] Transplanter brenda Disease Visit Annual PCP Team Chronic Disease Visit [facility] Start: 03-23-2025 Creatinine measurement Creatinine [facility] Start: 03-23-2025 Potassium measurement Potassium Leve l [facility] Start: 03-12-2025 Annual PCP Team [place] [facility] Nursery Transplanter brenda Disease Visit Annual PCP Team Chronic Disease Visit [facility] Start: 02-15-2025 Annual PCP Team [place] [facility] Nursery Transplanter brenda Disease Visit Annual PCP Team Chronic Disease Visit [facility] Start: 02-05-2025 Annual PCP Team [place] [facility] Nurs[employer] Transplanter brenda Disease Visit Annual PCP Team Chronic Disease Visit [facility] Start: 01-26-2025 Echocardiography [facility] Start: 01-19-2025 Creatinine measurement Creatinine [facility] Start: 01-19-2025 Potassium measurement Potassium Leve l [facility] Start: 01-11-2025 Annual PCP Team [place] Nurs[facility] Transplanter brenda Disease Visit Annual PCP Team Chronic Disease Visit [facility] Start: 01-09-2025 DTaP/Tdap/Td Vaccine s (3 - Td or Tdap) DTaP/Tdap/Td Vaccines (3 - Td or Tdap) [facility] Start: 01-09-2025 Urine microalbumin profile [facility] Start: 11-17-2024 Annual PCP Team [facility] Transplanter brenda Disease Visit Annual PCP Team Chronic Disease Visit [facility] Start: 11-12-2024 Annual PCP Team [place] [facility] Nursery Transplanter brenda Disease Visit Annual PCP Team Chronic Disease Visit [facility] Start: 11-08-2024 Influenza vaccination Influenza Vacc ine (#1) [facility] Start: 10-26-2024 End: 10-26-2024 Patient encounter procedure 10/26/2024 1:00 PM EDT Office Visit [facility] [place] [address] [place] [address] Marilee Thakur MD [address] [place] [address] 6 week f/u [facility] [place] Comment on above: 6 week f/u Start: 10-06-2024 End: 10-06-2024 Telemedicine consultation with patient 10/06/2024 10:20 AM EDT Telemedicine [facility] [address] [phone] [place] [address] [address] Department of [place] [address] [facility] Start: 10-05-2024 End: 10-05-2024 Patient encounter procedure 10/05/2024 10:30 AM EDT Office Visit Vascular Surgery [address] [place] [address] Hilda Jeong DO [address] [place] [address] 6 month follow up Vascular Surgery Comment on above: 6 month follow up Start: 09-13-2024 End: 09-13-2024 Patient encounter procedure 09/13/2024 3:40 PM EDT Office Visit [facility] [place] [address] [place], [place] [id number] Marilee Thakur MD [address] [place] [address] Discharge from [facility] [place] 06/17- 09/06 acute respitory failure [facility] [place] Comment on above: Discharge from [facility] [place] 06/17- 09/06 acute respitory failure Start: 07-03-2024 Screening for malign ant neoplasm of breast Mammogram Screening [facility] Start: 07-01-2024 End: 07-01-2024 ambulatory 07/01/2024 9:30 AM EDT Multidisciplinary Visit [facility] [address] [place] [address] [place] [address] [place] [address] [facility] [place] [address] [facility] Start: 2024 End: 2024 Patient encounter procedure 2024 12:20 PM EDT Office Visit [facility] [place] [address] [place] [address] Mika Kaplan APRN.BULB INSPECTOR [address] [place] [address] 3 Month follow up [facility] [place] Comment on above: 3 Month follow up Start: 06-22-2024 End: 06-22-2024 Patient encounter procedure 06/22/2024 11:30 AM EDT Office Visit [facility] [address] [place] [id number] Isi Goodman MD [address] [place] [address] [facility] Start: 06-17-2024 End: 06-17-2024 Patient encounter procedure 06/17/2024 11:30 AM EDT Office Visit [facility] [address] [place] [id number] Isi Goodman MD [address] [place] [address] [facility] Start: 06-03-2024 End: 06-03-2024 ambulatory 06/03/2024 10:30 AM EDT Multidisciplinary Visit [facility] [address] [place] [address] [place] [address] [place] [address] [facility] [place] [address] [facility] Start: 05-17-2024 End: 05-17-2024 Patient encounter procedure 05/17/2024 3:40 PM EDT Office Visit [facility] [place] [address] [place] [address] Marilee Thakur MD [address] [place] [address] 1 week cellulitis follow up [facility] [place] Comment on above: 1 week cellulitis fo llow up Start: 05-13-2024 End: 05-13-2024 Patient encounter procedure 05/13/2024 10:45 AM EST Appointment Radiology [address] [place] [address] Soft tissue mass [M79.89] Radiology Comment on above: Soft tissue mass [M7 9.89] Start: 05-10-2024 End: 05-10-2024 Patient encounter procedure 05/10/2024 1:40 PM EST Office Visit [facility] [address] [place] [address] Mika Kaplan APRN.BULB INSPECTOR [address] [place] [address] Anxiety per Mother [facility] Comment on above: Anxiety per Mother Start: 05-06-2024 End: 05-06-2024 ambulatory 05/06/2024 11:30 AM EST Multidisciplinary Visit [facility] [address] [place] [address] [place] [address] [facility] [place] [address] [facility] Start: 05-03-2024 End: 05-03-2024 Patient encounter procedure 05/03/2024 3:00 PM EST Office Visit [facility] [address] [place] [address] [place] [phone] [place] [address] Department of [place] [address] [facility] Start: 05-03-2024 End: 05-03-2025 Corticotropin [Mass/volume] in Plasma [facility] Work Phone: Comment on above: Expected: 05/03/2024 (Approximate), Expires: 05/03/2025 Start: 05-03-2024 End: 05-03-2025 Cortisol [Mass or Moles/volume] in Serum or Plasma --AM peak specimen [facility] Work Phone: Comment on above: Expected: 05/03/2024 (Approximate), Expires: 05/03/2025 Start: 05-03-2024 End: 05-03-2025 Lipid 1996 panel - Serum or Plasma Lipid Panel Lab Routine Prader-Willi syndrome (HHS-HCC) Hyperlipidemia, unspecified hyperlipidemia type Expected: 05/03/2024 (Approximate), Expires: 05/03/2025 [facility] Service Area Work Phone: Comment on above: Expected: 05/03/2024 (Approximate), Expires: 05/03/2025 Start: 05-02-2024 [facility] Start: 04-29-2024 Continuous positive airway pressure ventilation treatment [facility] Start: 04-29-2024 End: 04-29-2024 Referral to service [facility] Start: 04-29-2024 Following clinical pathway protocol [facility] Start: 04-29-2024 Application of elast ic bandage [facility] Start: 04-29-2024 Assessment of risk o f venous thromboembolism [facility] Start: 04-29-2024 Continuous pulse oximetry [facility] Start: 04-29-2024 Elevation of affecte d extremity [facility] Start: 04-29-2024 Inhalation therapy procedure [facility] Start: 04-29-2024 Insertion of cathete r into peripheral vein [facility] Start: 04-29-2024 Introduction of urin sonia catheter [facility] Start: 04-29-2024 Measuring intake and output [facility] Start: 04-29-2024 Notification of physician [facility] Start: 04-29-2024 Oxygen therapy [facility] Start: 04-29-2024 Patient education [facility] Start: 04-29-2024 Providing care accor ding to standard [facility] Start: 04-29-2024 Provision of activit y privileges [facility] Start: 04-29-2024 Referral to occupati onal therapist [facility] Start: 04-29-2024 Referral to service [facility] Start: 04-29-2024 [facility] Start: 04-29-2024 [facility] Start: 04-28-2024 Admission procedure [facility] Start: 04-14-2024 End: 04-14-2024 Patient encounter procedure 04/14/2024 10:00 AM EST Appointment Radiology [address] [place] [address] 2 small spots to left side of abdomen in soft tissue Radiology Comment on above: 2 small spots to lef t side of abdomen in soft tissue Start: 04-06-2024 End: 04-06-2024 Patient encounter procedure 04/06/2024 10:00 AM EST Office Visit Vascular Surgery [address] [place] [address] Hilda Jeong, DO [address] [place] [address] 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, Prader-Willi Syndrome [facility] Comment on above: 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, Prader-Willi Syndrome Start: 04-01-2024 End: 07-01-2024 CBC panel - Blood by Automated count [facility] Work Phone: Comment on above: Expected: 04/01/2024 , Expires: 07/01/2024 Start: 04-01-2024 End: 04-01-2024 Patient encounter procedure 04/01/2024 11:00 AM EST Office Visit [facility] [address] [place], [place] [id number] Mika Kaplan APRN.BULB INSPECTOR [address] [place], [place] [phone] PHYSICAL [facility] Comment on above: PHYSICAL Start: 03-23-2024 End: 03-23-2024 Patient encounter procedure 03/23/2024 10:30 AM EST Office Visit [facility] [address] [place] [phone] Isi Goodman MD [address] [place] [address] [facility] Start: 03-22-2024 End: 03-22-2024 Patient encounter procedure 03/22/2024 1:00 PM EST Office Visit [facility] [place] [address] [place], [place] [phone] Mika Kaplan APRN.BULB INSPECTOR [address] [place], [place] [phone] physical [facility] Comment on above: physical Start: 03-19-2024 Annual PCP Team [facility] Transplanter brenda Disease Visit Annual PCP Team Chronic Disease Visit [facility] Start: 03-12-2024 End: 03-12-2024 Patient encounter procedure 03/12/2024 9:40 AM EST Office Visit [facility] [address] [facility] [address] Rajesh Corona MD [address] [place] [address] Weight gain off diuretic. See TE 03/11/24. [facility] [place] Comment on above: Weight gain off diur etic. See TE 03/11/24. Start: 03-09-2024 End: 06-08-2024 Thyrotropin [Units/volume] in Serum or Plasma THYROID STIMULATING HORMONE Lab Routine Acquired hypothyroidism Expected: 03/09/2024, Expires: 06/08/2024 [facility] Work Phone: Comment on above: Expected: 03/09/2024 , Expires: 06/08/2024 Start: 02-24-2024 End: 02-24-2024 Patient encounter procedure 02/24/2024 3:40 PM EST Office Visit [facility] [address] [facility] [place] [address] Marilee Thakur MD [address] [place] [address] [facility] D/C 02/18 DEJA [facility] [place] Comment on above: [facility] D/C 02/18 A KI Start: 02-20-2024 End: 02-20-2024 Patient encounter procedure 02/20/2024 9:00 AM EST Office Visit [facility] [place] [address] [facility] [place] [address] Marilee Thakur MD [address] [place] [address] 3 mo follow up; BL lymphedema [facility] [place] Comment on above: 3 mo follow up; BL l ymphedema Start: 02-16-2024 End: 02-16-2024 Patient encounter procedure 02/16/2024 3:00 PM EST Office Visit [facility] [place] [address] [facility] [place] [address] Marilee Thakur MD [address] [facility] [place] [address] follow up [facility] Comment on above: follow up Start: 02-11-2024 End: 05-12-2024 CBC W Auto Differential panel - Blood COMPLETE BLOOD COUNT AND DIFFERENTIAL Lab Routine Acute congestive heart failure, unspecified heart failure type (HCC) Expected: 02/11/2024, Expires: 05/12/2024 [facility] Work Phone: Comment on above: Expected: 02/11/2024 , Expires: 05/12/2024 Start: 02-11-2024 End: 05-12-2024 Comprehensive metabolic 2000 panel - Serum or Plasma COMPREHENSIVE METABOLIC PANEL Lab Routine Acute congestive heart failure, unspecified heart failure type (HCC) Expected: 02/11/2024, Expires: 05/12/2024 [facility] Comment on above: Expected: 02/11/2024 , Expires: 05/12/2024 Start: 02-06-2024 End: 05-07-2024 Basic metabolic 2000 panel - Serum or Plasma BASIC METABOLIC PANEL Lab Routine 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) Expected: 02/06/2024, Expires: 05/07/2024 [facility] Comment on above: Expected: 02/06/2024 , Expires: 05/07/2024 Start: 02-06-2024 End: 05-07-2024 Magnesium [Mass/volume] in Serum or Plasma MAGNESIUM Lab Routine 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) Expected: 02/06/2024, Expires: 05/07/2024 [facility] Work Phone: Comment on above: Expected: 02/06/2024 , Expires: 05/07/2024 Start: 02-06-2024 End: 02-06-2024 Patient encounter procedure 02/06/2024 11:40 AM EST Office Visit [facility] [address] [place] [address] Marilee Thakur MD [address] [place], [place] [phone] hospital follow up [facility] Comment on above: hospital follow up Start: 01-27-2024 End: 01-27-2024 Patient encounter procedure 01/27/2024 10:00 AM EST Appointment [facility] [address] [place] [phone] [facility] Start: 01-20-2024 End: 01-19-2025 Comprehensive metabolic 2000 panel - Serum or Plasma Comprehensive metabolic panel Lab Routine Dyspnea on exertion Expected: 01/20/2024 (Approximate), Expires: 01/19/2025 [facility] Work Phone: Comment on above: Expected: 01/20/2024 (Approximate), Expires: 01/19/2025 Start: 01-20-2024 End: 01-19-2025 Natriuretic peptide B [Mass/volume] in Blood B-Type Natriuretic Peptide Lab Routine Dyspnea on exertion Bilateral lower extremity edema Expected: 01/20/2024 (Approximate), Expires: 01/19/2025 [facility] Work Phone: Comment on above: Expected: 01/20/2024 (Approximate), Expires: 01/19/2025 Start: 01-20-2024 End: 01-19-2026 US Heart Transthoracic Transthoracic Echo Complete Echocardiography Routine Dyspnea on exertion Bilateral lower extremity edema Expected: 01/20/2024 (Approximate), Expires: 01/19/2026 [facility] Service Area Work Phone: Comment on above: Expected: 01/20/2024 (Approximate), Expires: 01/19/2026 Start: 01-12-2024 End: 01-12-2024 Patient encounter procedure 01/12/2024 9:00 AM EST Office Visit [facility] [address] [place] [id number] Marilee Thakur MD [address] [place] [phone] [facility] follow up shortness of breath, edema, 30 pounds fluid, discharged 01/01 [facility] Comment on above: [facility] follow up shortn ess of breath, edema, 30 pounds fluid, discharged 01/01 Start: 01-08-2024 End: 04-08-2024 Basic metabolic 2000 panel - Serum or Plasma BASIC METABOLIC PANEL Lab Routine Medication management Expected: 01/08/2024, Expires: 04/08/2024 [facility] Work Phone: Comment on above: Expected: 01/08/2024 , Expires: 04/08/2024 Start: 01-02-2024 End: 01-02-2024 Patient encounter procedure 01/02/2024 11:20 AM EDT Office Visit [facility] [address] [place] [address] Marilee Thakur MD [address] [place] [address] [facility] f/u 12-21-23. s/o SOB [facility] Comment on above: [facility] f/u 12-08. s/o SOB Start: 01-01-2024 End: 01-01-2024 Patient encounter procedure 01/01/2024 3:20 PM EDT Office Visit [facility] [address] [facility] [place] [address] Marilee Thakur MD [address] [place] [address] [facility] f/u 12-21-23. s/o SOB [facility] [place] Comment on above: [facility] f/u 12-08. s/o SOB Start: 11-18-2023 End: 11-18-2023 Patient encounter procedure 11/18/2023 3:40 PM EDT Office Visit [facility] [address] [place] [address] Marilee Thakur MD [address] [place] [address] compression hose, needs to be set up with a compression class [facility] [place] Comment on above: compression hose, ne eds to be set up with a compression class Start: 11-09-2023 Covid-19 Vaccine ( season) Covid-19 Vaccine ( season) [facility] Start: 11-09-2023 Covid-19 Vaccine ( season) Covid-19 Vaccine () [facility] Start: 11-09-2023 Influenza vaccination C [facility] Start: 10-24-2023 ANNUAL PCP TEAM CNC MAINTENANCE TECHNICIAN BRENDA DISEASE VISIT ANNUAL PCP TEAM CHRONIC DISEASE VISIT [facility] Start: 07-02-2023 ANNUAL PCP TEAM CNC MAINTENANCE TECHNICIAN BRENDA DISEASE VISIT ANNUAL PCP TEAM CHRONIC DISEASE VISIT [facility] Start: 05-02-2023 ANNUAL PCP TEAM CNC MAINTENANCE TECHNICIAN BRENDA DISEASE VISIT ANNUAL PCP TEAM CHRONIC DISEASE VISIT [facility] Start: 03-21-2023 ANNUAL PCP TEAM CNC MAINTENANCE TECHNICIAN BRENDA DISEASE VISIT ANNUAL PCP TEAM CHRONIC DISEASE VISIT [facility] Start: 03-10-2023 Behavioral Health Screening Behavioral Health Screening [facility] Start: 03-10-2023 Depression Assessment Depression Ass essment [facility] Start: 01-29-2023 ANNUAL PCP TEAM CNC MAINTENANCE TECHNICIAN BRENDA DISEASE VISIT ANNUAL PCP TEAM CHRONIC DISEASE VISIT [facility] Start: 12-13-2022 Diabetes mellitus screening Diabetes Screening [facility] Start: 12-05-2022 JOSLYN, Provider : Teresa Mohamud, Status: Pen, Time: 10:30 AM JOSLYN, Provider: Teresa Mohamud, Status: Pen, Time: 10:30 AM [facility] [address] DO Work Phone: Start: 11-08-2022 Covid-19 Vaccine ( season) Covid-19 Vaccine () [facility] Start: 11-08-2022 Influenza vaccination C [facility] Start: 10-29-2022 Adult depression screening assessment DEPRESSION SCREENING [facility] Start: 10-29-2022 ANNUAL PCP TEAM CNC MAINTENANCE TECHNICIAN BRENDA DISEASE VISIT ANNUAL PCP TEAM CHRONIC DISEASE VISIT [facility] Start: 10-08-2022 End: 12-08-2022 Basic metabolic 2000 panel - Serum or Plasma BASIC METABOLIC PNL Lab Routine Medication management Expected: 10/08/2022, Expires: 12/08/2022 [facility] Work Phone: Comment on above: Expected: 10/08/2022 , Expires: 12/08/2022 Start: 10-08-2022 End: 12-08-2022 Thyrotropin [Units/volume] in Serum or Plasma TSH BLD Lab Routine Acquired hypothyroidism Expected: 10/08/2022, Expires: 12/08/2022 [facility] Work Phone: Comment on above: Expected: 10/08/2022 , Expires: 12/08/2022 Start: 08-20-2022 ANNUAL PCP TEAM CNC MAINTENANCE TECHNICIAN BRENDA DISEASE VISIT ANNUAL PCP TEAM CHRONIC DISEASE VISIT [facility] Start: 2022 Mammography [facility] Start: 2022 Screening for malign ant neoplasm of breast [facility] Start: 06-28-2022 ANNUAL PCP TEAM CNC MAINTENANCE TECHNICIAN BRENDA DISEASE VISIT ANNUAL PCP TEAM CHRONIC DISEASE VISIT [facility] Start: 04-23-2022 ANNUAL PCP TEAM CNC MAINTENANCE TECHNICIAN BRENDA DISEASE VISIT ANNUAL PCP TEAM CHRONIC DISEASE VISIT [facility] Start: 03-10-2022 DEPRESSION ASSESSMENT DEPRESSION ASS ESSMENT [facility] Start: 11-29-2021 End: 01-29-2022 25-hydroxyvitamin D3 [Mass/volume] in Serum or Plasma VITAMIN D 25 HYDROXY Lab Routine Vitamin D deficiency Expected: 11/29/2021, Expires: 01/29/2022 [facility] Work Phone: Comment on above: Expected: 11/29/2021 , Expires: 01/29/2022 Start: 11-29-2021 End: 01-29-2022 CBC W Auto Differential panel - Blood CBC + DIFF Lab Routine Prader-Willi syndrome Expected: 11/29/2021, Expires: 01/29/2022 [facility] Work Phone: Comment on above: Expected: 11/29/2021 , Expires: 01/29/2022 Start: 11-29-2021 End: 01-29-2022 Comprehensive metabolic 2000 panel - Serum or Plasma COMP METABOLIC PANEL Lab Routine Encounter for screening for diabetes mellitus Expected: 11/29/2021, Expires: 01/29/2022 [facility] Work Phone: Comment on above: Expected: 11/29/2021 , Expires: 01/29/2022 Start: 11-29-2021 End: 01-29-2022 Hemoglobin A1c in Blood HGB A1C Lab Routine Elevated blood sugar Expected: 11/29/2021, Expires: 01/29/2022 [facility] Work Phone: Comment on above: Expected: 11/29/2021 , Expires: 01/29/2022 Start: 11-29-2021 End: 01-29-2022 Lipid 1996 panel - Serum or Plasma LIPID PANEL BASIC Lab Routine Lipid screening Expected: 11/29/2021, Expires: 01/29/2022 [facility] Work Phone: Comment on above: Expected: 11/29/2021 , Expires: 01/29/2022 Start: 11-29-2021 End: 01-29-2022 Thyrotropin [Units/volume] in Serum or Plasma TSH BLD Lab Routine Hypothyroidism, unspecified type Expected: 11/29/2021, Expires: 01/29/2022 [facility] Work Phone: Comment on above: Expected: 11/29/2021 , Expires: 01/29/2022 Start: 11-08-2021 Influenza vaccination C [facility] Start: 10-31-2021 FUV, Provider: Teresa Mohamud, Status: Pen, Time: 11:30 AM FUV, Provider: Teresa Mohamud, Status: Pen, Time: 11:30 AM [id number] [address] Work Phone: Start: 04-17-2021 Creatinine measurement Creatinine Le everardo [facility] Start: 04-17-2021 Potassium measurement Potassium Leve l [facility] Start: 04-17-2021 Thyroid stimulating hormone measurement TSH Level [facility] Start: 03-10-2021 DEPRESSION ASSESSMENT DEPRESSION ASS ESSMENT [facility] Start: 12-13-2020 COVID-19 VACCINE (3 - Booster for Moderna series) COVID-19 VACCINE (3 - Booster for Moderna series) [facility] Start: 11-08-2020 Influenza vaccination INFLUENZA (#1) [facility] Start: 09-07-2020 COVID-19 VACCINE (3 - Booster for Moderna series) COVID-19 VACCINE (3 - Booster for Moderna series) [facility] Start: 12-06-2019 25 hydroxy includes fractions if performed Vitamin D 25-Hydroxy [facility] [employer] Work Phone: Start: 12-06-2019 Echocardiography [facility] Work Phone: Start: 12-06-2019 EKG study Electrocardiogram EKG U [facility] [employer] Work Phone: Start: 12-06-2019 HbA1c (Bld) [Mass fraction] Hemoglobin A1C [facility] [employer] Phone: Start: 12-06-2019 Hepatic function panel Hepatic Funct ion Panel [facility] Phone: Start: 12-06-2019 Lipid panel Lipid Panel [facility] Phone: Start: 12-06-2019 Urea, electrolytes a nd creatinine measurement Renal Function Panel [facility] [employer] Phone: Start: 12-06-2019 Urnls dip stick/tabl et rgnt auto w/o microscopy [facility] Phone: Start: 05-26-2019 Adult depression screening assessment DEPRESSION SCREENING [facility] Start: 12-31-2017 Echocardiography Echocardiogram [facility] Start: 2012 Zoledronic acid therapy Alpha- 1 Antitrypsin Deficiency Screening [facility] Start: 08-09-2007 Medicare Annual Well ness Visit Medicare Annual Wellness Visit [facility] Start: 04-11-2007 PNEUMOCOCCAL (2 - PCV) PNEUMOCOCCAL (2 - PCV) [facility] Start: 04-11-2007 Pneumococcal vaccination [facility] Start: 04-11-2007 Pneumococcal Vaccine : Pediatrics (0 to 5 Years) and At-Risk Patients (6 to 64 Years) (2 of 2 - PCV) Pneumococcal Vaccine: Pediatrics (0 to 5 Years) and At-Risk Patients (6 to 64 Years) (2 of 2 - PCV) [facility] Start: 04-11-2007 Pneumococcal Vaccine : Pediatrics and At-Risk Adult Patients (2 of 2 - PCV) Pneumococcal Vaccine: Pediatrics and At-Risk Adult Patients (2 of 2 - PCV) [facility] Start: 07-01-2003 Screening for malign ant neoplasm of cervix [facility] Start: 2001 Hepatitis B Vaccine (1 of 3 - 19+ 3-dose series) Hepatitis B Vaccine (1 of 3 - 19+ 3-dose series) [facility] Start: 2001 Hepatitis B Vaccines (1 of 3 - 19+ 3-dose series) Hepatitis B Vaccines (1 of 3 - 19+ 3-dose series) [facility] Start: 2000 Anxiety Screening Anxiety Screening [facility] Start: 2000 Depression Screening Depression Scre ening [facility] Start: 2000 Hepatitis C screening Hepatitis C Sc reening [facility] Start: 2000 SPIROMETRY SPIROMETRY [facility] Start: 07-01-1995 Varicella vaccination Varicell a Vaccines (1 of 2 - 13+ 2-dose series) [facility] Start: 07-01-1983 MMR Vaccines (1 of 1 - Standard series) MMR Vaccines (1 of 1 - Standard series) [facility] Start: 1982 HEPATITIS B (1 of 3 - 3-dose series) HEPATITIS B (1 of 3 - 3-dose series) [facility] Start: 1982 Hepatitis B Vaccine (1 of 3 - 3-dose series) Hepatitis B Vaccine (1 of 3 - 3-dose series) [facility] Start: 1982 HIV screening HIV Screening [facility] Start: 1982 Medicare Annual Well ness Visit Medicare Annual Wellness Visit (AWV) [facility] Bacteria identified in Urine by Culture BACTERIAL CULTURE, URINE Microbiology Routine Dysuria Hematuria, unspecified type 04/01/2024 11:51 AM EST [facility] End: 09-09-2025 DBT Breast - bilateral screening FELISA SCREENING W ELIZABETH Radiology Routine Encounter for screening mammogram for breast cancer 1 Occurrences starting 08/10/2024 until 09/09/2025 [facility] Work Phone: Comment on above: 1 Occurrences starti ng 08/10/2024 until 09/09/2025 End: 06-28-2022 Echocardiography ECHO Cardiology Routine Prader-Willi syndrome SOB (shortness of breath) 1 Occurrences starting 06/28/2021 until 06/28/2022 [facility] Work Phone: Comment on above: 1 Occurrences starti ng 06/28/2021 until 06/28/2022 Patient referral [facility] Work Phone: Urinalysis complete panel - Urine URINALYSIS, WITH MICROSCOPIC Lab Routine Dysuria Hematuria, unspecified type 04/01/2024 11:[address] [facility] End: 05-01-2025 US Abdomen US SOFT TISSUE ABDOMEN Radiology Routine Abdominal mass, unspecified abdominal location 1 Occurrences starting 04/01/2024 until 05/01/2025 [facility] Comment on above: 1 Occurrences starti ng 04/01/2024 until 05/01/2025 US Abdomen US SOFT TISSUE A BDOMEN Radiology Routine Abdominal mass, unspecified abdominal location 04/14/2024 11:30 AM EST [facility] Work Phone: End: 05-21-2025 US Abdomen US SOFT TISSUE ABDOMEN Radiology Routine Soft tissue mass 1 Occurrences starting 04/21/2024 until 05/21/2025 [facility] Work Phone: Comment on above: 1 Occurrences starti ng 04/21/2024 until 05/21/2025 [facility] NEGATED: Highlighted row has been ruled out! Planned Goals not documented [facility] Work Phone: Immunizations Immunization Date Immunization Notes Care Provider [facility] 01-12-2024 influenza virus vaccine, unspecified formulation ANSELMO FALK MD [facility] 01-12-2024 influenza, injectabl e, quadrivalent, preservative free Dr. Marilee Thakur MD Work Phone: [facility] 01-12-2024 influenza, seasonal, injectable Marilee Thakur MD Work Phone: [facility] 01-29-2022 COVID-19 booster vaccine, age 12+ yr, bivalent (PFIZER-BIONTWamba) Marilee Thakur MD Work Phone: [facility] 07-13-2020 COVID-19 vaccine, fu ll dose (MODERNA) Marilee Thakur MD Work Phone: [facility] Work Phone: Comment on above: Result Comment: 2024: TPV22 06-15-2020 COVID-19 vaccine, fu ll dose (MODERNA) Marilee Thakur MD Work Phone: [facility] Work Phone: Comment on above: Result Comment: 2024: TPV22 12-22-2019 influenza, injectabl e, quadrivalent, contains preservative Marilee Thakur MD Work Phone: [facility] Work Phone: 12-22-2019 influenza, injectabl e, quadrivalent, preservative free Dr. Marilee Thakur MD Work Phone: [facility] 12-22-2019 influenza virus vaccine, unspecified formulation Marilee Thakur MD Work Phone: [facility] 01-19-2019 influenza virus vaccine, unspecified formulation ANSELMO FALK MD [facility] 01-19-2019 influenza, injectabl e, quadrivalent, contains preservative Marilee Thakur MD Work Phone: [facility] 01-19-2019 influenza, injectabl e, quadrivalent, preservative free Dr. Marilee Thakur MD Work Phone: [facility] 11-26-2017 influenza virus vaccine, unspecified formulation ANSELMO FALK MD [facility] 11-26-2017 influenza, injectabl e, quadrivalent, preservative free Marilee Thakur MD Work Phone: [facility] Work Phone: 01-27-2017 influenza virus vaccine, unspecified formulation ANSELMO FALK MD [facility] 01-27-2017 influenza, injectabl e, quadrivalent, contains preservative Marilee Thakur MD Work Phone: [facility] Work Phone: 01-27-2017 influenza, injectabl e, quadrivalent, preservative free Dr. Marilee Thakur MD Work Phone: [facility] 12-13-2015 influenza virus vaccine, unspecified formulation ANSELMO FALK MD [facility] 12-13-2015 influenza, injectabl e, quadrivalent, contains preservative Marilee Thakur MD Work Phone: [facility] 12-13-2015 influenza, injectabl e, quadrivalent, preservative free Dr. Marilee Thakur MD Work Phone: [facility] 01-09-2015 tetanus toxoid, redu abdelrahman diphtheria toxoid, and acellular pertussis vaccine, adsorbed Marilee Thakur MD Work Phone: [facility] Work Phone: 12-14-2014 influenza virus vaccine, unspecified formulation ANSELMO FALK MD [facility] 12-14-2014 influenza, injectabl e, quadrivalent, contains preservative Marilee Thakur MD Work Phone: [facility] 12-14-2014 influenza, injectabl e, quadrivalent, preservative free Dr. Marilee Thakur MD Work Phone: [facility] 12-13-2013 influenza virus vaccine, unspecified formulation ANSELMO FALK MD [facility] 12-13-2013 influenza, injectabl e, quadrivalent, preservative free Dr. Marilee Thakur MD Work Phone: [facility] 12-13-2013 influenza, seasonal, injectable Marilee Thakur MD Work Phone: [facility] 01-01-2013 influenza virus vaccine, unspecified formulation Marilee Thakur MD Work Phone: [facility] Work Phone: 12-13-2010 influenza virus vaccine, unspecified formulation Marilee Thakur MD Work Phone: [facility] 05-25-2010 tuberculin skin test ; purified protein derivative solution, intradermal Marilee Thakur MD Work Phone: [facility] 01-30-2010 influenza virus vaccine, unspecified formulation Marilee Thakur MD Work Phone: [facility] Work Phone: 05-29-2009 tuberculin skin test ; purified protein derivative solution, intradermal Marilee Thakur MD Work Phone: [facility] Work Phone: 12-27-2008 influenza virus vaccine, unspecified formulation Marilee Thakur MD Work Phone: [facility] 02-03-2008 influenza virus vaccine, unspecified formulation Marilee Thakur MD Work Phone: [facility] 01-06-2007 influenza virus vaccine, unspecified formulation Marilee Thakur MD Work Phone: [facility] Work Phone: 04-11-2006 pneumococcal polysaccharide vaccine, 23 valent Marilee Thakur MD Work Phone: [facility] Work Phone: 01-28-2006 influenza virus vaccine, unspecified formulation Marilee Thakur MD Work Phone: [facility] 11-14-2003 tetanus and diphther ia toxoids, adsorbed, preservative free, for adult use (2 Lf of tetanus toxoid and 2 Lf of diphtheria toxoid) Marilee Thakur MD Work Phone: [facility] Work Phone: NEGATED: Highlighted row has not occurred!12-20-2020 influenza, injectable, quadrivalent, contains preservative Marilee Thakur MD Work Phone: [facility] Work Phone: Payers Date Payer Category Payer Unknown 2024 Unknown XX 2023 Self-pay [id number] 2015 Medicaid MEDICAID [facility] MEDICAID [id number] 2015-Present [phone] [address] [place] [address] Medicaid [id number] 2015 Medicaid [id number] [id number] 2013 Medicaid [id number] 2007 Medicare MEDICARE MEDICAR E A AND B [id number] 2007-Present [phone] [address] [address] [place] [address] Medicare [id number] [id number] 2007 Medicare [id number] 1.13.159.2.7.3.6 [id number] 2007 Medicare [id number] 1982 Unknown [id number] 2.840.1.390162.3.579.2.1246 1982 Unknown [id number] 2.840.1.392132.3.579.2.1246 1982 Unknown [id number] 2.840.1.002406.3.579.2.1246 1982 Unknown [id number] 2.16840.1.736861.3.579.2.1246 1982 Unknown [id number] 2.16840.1.922872.3.579.2.627 1982 Unknown [id number] 2.16840.1.355246.3.579.2.627 1982 Unknown [id number] 2.840.1.864562.3.579.2.1244 1982 Unknown [id number] 2.840.1.326425.3.579.2.1244 1982 Unknown [id number] 2.840.1.396209.3.579.2. 1982 Unknown [id number] 2.840.1.309261.3.579.2. 1982 Unknown [id number] .0.1.502656.3.579.2. 1982 Unknown [id number] 2.0.1.364561.3.579.2. 1982 Unknown [id number] .1.240766.3.579.2. 1982 Unknown [id number] 04.25.830.1.236890.3.579.2.1243 1982 Unknown [id number] .1.208068.3.579.2.1243 1982 Unknown [id number] 04.25.830.1.021722.3.579.2.1243 1982 Unknown [id number] 04.25.830.1.676974.3.579.2.12403-10-1900 Unknown [id number] 840.1.346699.3.579.2.627 Medicare [id number] Unknown [id number] 840.1.645329.3.579.2.462 Unknown [id number] 2840.1.262631.3.579.2.462 Unknown [id number] 2840.1.005266.3.579.2.462 Unknown [id number] 840.1.285742.3.579.2.462 Unknown [id number] 2.16.840.1.279975.3.579.2.462 Unknown [id number] 2.16.840.1.452310.3.579.2.462 Unknown [id number] 2.16.840.1.014359.3.579.2.462 Unknown [id number] 2.16.840.1.655215.3.579.2.462 Unknown [id number] 2.16.840.1.271177.3.579.2.462 Unknown [id number] 2.16.840.1.291527.3.579.2.462 Unknown [id number] 2.16.840.1.599807.3.579.2.462 Unknown [id number] 2.840.1.935693.3.579.2.462 Unknown [id number] 2.840.1.914428.3.579.2.462 Unknown [id number] 2.16840.1.315935.3.579.2.462 Unknown [id number] 2.840.1.729100.3.579.2.462 Unknown [id number] 2.16840.1.281264.3.579.2.462 Unknown [id number] 2.840.1.757481.3.579.2.462 Unknown [id number] 2.16.840.1.632592.3.579.2.462 Unknown [id number] 2.16.840.1.668992.3.579.2.462 Unknown [id number] 2.16.840.1.733728.3.579.2.462 Unknown [id number] 2.16840.1.882276.3.579.2.462 Unknown [id number] 2.16.840.1.264680.3.579.2.462 Unknown [id number] 2.16.840.1.868619.3.579.2.462 Unknown [id number] 2.16.840.1.090354.3.579.2.462 Unknown [id number] 2.16.840.1.339059.3.579.2.462 Unknown [id number] 2.16.840.1.833133.3.579.2.462 Unknown [id number] 2.16.840.1.819431.3.579.2.462 Unknown [id number] 2.16.840.1.197591.3.579.2.462 Unknown [id number] 2.16.840.1.820136.3.579.2.462 Unknown [id number] 2.840.1.199628.3.579.2.462 Unknown [id number] 2.16.840.1.181142.3.579.2.462 Unknown [id number] 2.16.840.1.298300.3.579.2.462 Unknown [id number] 2.16.840.1.778934.3.579.2.462 Unknown [id number] 2.16.840.1.576064.3.579.2.462 Unknown [id number] 2.16.840.1.605661.3.579.2.462 Unknown [id number] 2.16.840.1.682341.3.579.2.462 Unknown [id number] 2.16.840.1.977519.3.579.2.462 Unknown [id number] 2.16.840.1.040191.3.579.2.462 Unknown [id number] 2.16.840.1.367047.3.579.2.462 Unknown [id number] 2.16.840.1.315932.3.579.2.462 Unknown [id number] 2.16.840.1.212639.3.579.2.462 Unknown [id number] 2.16.840.1.496231.3.579.2.462 Unknown [id number] 2.16.840.1.102311.3.579.2.462 Unknown [id number] 2.16.840.1.626666.3.579.2.462 Unknown [id number] 2.16.840.1.811896.3.579.2.462 Unknown [id number] 2.16.840.1.374776.3.579.2.462 Unknown [id number] 2.16.840.1.271893.3.579.2.462 Unknown [id number] 2.16.840.1.142411.3.579.2.462 Unknown [id number] 2.16.840.1.448104.3.579.2.462 Unknown [id number] 2.16.840.1.184303.3.579.2.462 Unknown [id number] 2.16.840.1.642387.3.579.2.462 Unknown [id number] 2.16.840.1.840733.3.579.2.462 Unknown [id number] 2.16.840.1.133308.3.579.2.462 Unknown [id number] 2.16.840.1.585924.3.579.2.462 Unknown [id number] 2.16.840.1.655539.3.579.2.462 Social History Date Type Detail Facility Assertion Unknown [facility]: Start: 07-01-2022 End: 10-23-2022 Lives in skilled nursing Lives in skilled nursing [facility] Work Phone: Start: 11-21-2010 End: 08-17-2024 Tobacco smoking status NHIS Never smoked tobacco [facility] Start: 04-23-2021 End: 09-13-2024 Alcohol intake Current non-drinker of alcohol (finding) [facility] Start: 1980 Sex Assigned At Not on file [facility] Start: 05-21-2021 End: 05-03-2024 Exposure to SARS-CoV-2 (event) Not sure [facility] Start: 11-21-2010 End: 12-04-2023 Tobacco use and exposure Smokeless tobacco non-user [facility] Work Phone: Start: 05-27-2022 End: 06-02-2023 Tobacco smoking status NHIS Unknown if ever smoked [facility] Start: 09-30-2014 None [facility] Start: 05-10-2019 - [facility] Start: 09-30-2014 Non-smoker [facility] Start: 1980 Sex Assigned At Female W [facility] Start: 07-01-2022 End: 10-23-2022 Tobacco use panel [facility] Work Phone: Adult Depression Screening Assessment 0 [facility] Work Phone: (I/We) worried whefreddy er (my/our) food would run out before (I/we) got money to buy more. Never true [facility] Work Phone: Start: 05-03-2024 End: 05-04-2024 Alcoholic beverage intake Lifetime non-drinker (finding) [facility] Work Phone: Sexual Orientation [facility] Start: 04-18-2005 Sex Female (finding) [facility] Goals Date Patient Goal Desired Activity /State Personal health goal Functional Status Date Assessment Result Facility 05-30-2024 Functional Status Room check performed [facility] 05-30-2024 [facility] 05-30-2024 Functional Status Done [facility] 05-30-[address] [facility] 05-29-[address] [facility] 05-29-2024 Functional Status Nurse Alfredo morel q2hrs Performed 7am-3pm [facility] 05-29-[address] [facility] 05-29-2024 Functional Status [facility] 05-29-2024 Functional [facility] 05-29-2024 Functional Status [facility] 05-29-2024 Functional Status [facility] 05-28-2024 Functional Status [facility] 05-28-2024 Functional Status [facility] 05-27-2024 Functional Status [facility] 05-27-2024 Functional Status Dinner Percent 100 [facility] 05-27-2024 Functional Status [facility] 05-27-2024 Functional Status [facility] 05-27-2024 Functional Status Bed Mobility S upine to Sit Max A [facility] 05-27-2024 Functional Status [facility] 05-26-2024 Functional Status [facility] 05-26-2024 Functional Status [facility] 05-26-2024 Functional Status Patient refused [facility] 05-25-2024 Functional Status [facility] 05-24-2024 Functional Status Evening Snack Percent 100 [facility] 05-24-2024 Functional Status [facility] 05-24-2024 Functional Status [facility] 05-24-2024 Functional Status [facility] 05-23-2024 Functional Status [facility] 05-23-2024 Functional Status [facility] 05-22-2024 Functional Status [facility] 05-22-2024 Functional Status [facility] 05-21-2024 Functional Status Transparent si licone dressing [facility] 05-21-2024 Functional Status [facility] 05-19-2024 Functional Status [facility] 05-18-2024 Functional Status [facility] 05-17-2024 Functional Status [facility] 05-16-2024 Functional Status [facility] 05-16-2024 Functional Status [facility] 05-15-2024 Functional Status [facility] 05-14-2024 Functional Status Maintained [facility] 05-14-2024 Functional Status [facility] 05-13-2024 Functional Status Living Situati on Extended Care Facility [facility] 05-13-2024 Functional Status Device protect ion, Pain management, Positioning/Turning, Intervention attempted, not successful [facility] 05-08-2024 Functional Status [facility] 05-02-2024 Functional status Ambulates [facility] Work Phone: 02-27-2024 Functional Status [facility] 12-21-2023 Functional Status Ambulation in [facility] 12-21-2023 Functional Status Standard Safet y ID band on, Visitor at bedside [facility] 08-31-2014 Are you deaf, or do you have serious difficulty hearing No 08/31/2014 4:25 PM Rani Adair Cma No [facility] 08-31-2014 Are you blind, or do you have serious difficulty seeing, even when wearing glasses No 08/31/2014 4:25 PM Rani Adair Cma No [facility] 08-31-2014 Do you have serious difficulty walking or climbing stairs No 08/31/2014 4:25 PM Rani Adair Cma No [facility] 08-31-2014 Do you have difficul ty dressing or bathing No 08/31/2014 4:25 PM Rani Adair Cma No [facility] 05-23-2014 Because of a physica l, mental, or emotional condition, do you have difficulty doing errands alone such as visiting a physician's office or shopping Yes 05/23/2014 3:37 PM EDT Rosina Schofield RN Yes [facility] NEGATED: Highlighted row Functional performance Functional status health issues are not documented Disease [facility] Work Phone: Mental Status Date Assessment Result Facility 05-30-2024 Mental Status Orientation Orie nted x [facility] 05-30-2024 [facility] 05-29-2024 Mental Status Orientation Asse ssment Oriented x [facility] 05-28-2024 Mental Status [facility] 05-28-2024 Mental Status [facility] 05-08-2024 Mental Status Oriented x 4 [facility] 05-02-2024 Cognitive function Voice/Name Blair Flores [facility] Work Phone: 02-27-2024 Mental Status Orientation Orie nted x 4 [facility] 12-21-[address] [facility] nted x 4 [facility] 12-21-2023 Mental Status [facility] 08-31-2014 Because of a physical, mental, or emotional condition, do you have serious difficulty concentrating, remembering, or making decisions Yes 08/31/2014 4:25 PM EDT Rani Cruz Cma Yes [facility] NEGATED: Highlighted row Cognitive function [Interpretation] Cognitive status health issues are not documented Disease [facility] Work Phone: Clinical Notes 01-16-2016 to 10-05-2024 Patient Hilda Giron, DO - 10/05/2024 10:55 AM EDTTelephone Encounter - Candelaria BallJORDAN - 10/04/2024 10:13 AM EDTPatient Marilee Sanchez MD - 09/13/2024 5:01 PM EDT Note Date & Type Note Facility 10-05-2024 Instructions Hilda Jeong, DO - 10/05/2024 11:11 AM EDT Images from the original note were not included. [facility] [place] DEPARTMENT OF VASCULAR SURGERY OUTPATIENT VISIT DATE October 05, 2024 OUTPATIENT VISIT TYPE ESTABLISHED SERVICE DATE: 10/05/2024 SERVICE TIME: 10:55 AM PRIMARY CARE PHYSICIAN: Marilee Thakur MD HISTORY OF PRESENT ILLNESS: Ms. Abdul is a 44 year old female who presents today for a vascular surgery follow-up visit with lymphedema. She has noticed a big improvement with compression pumps. She has noticed an area of concern of distal right medial calf. PAST MEDICAL HISTORY PAST MEDICAL HISTORY Diagnosis Date Allergic rhinitis, [...] Viral pneumonia, unspecified LLL PAST SURGICAL HISTORY PAST SURGICAL HISTORY Procedure Laterality Date LEFT HEART CATH,PERCUTANEOUS 02/25/2024 normal. NONE SOCIAL HISTORY SOCIAL HISTORY Social History Tobacco Use Smoking status: Never Smokeless tobacco: Never Substance Use Topics Alcohol use: No Drug use: No MEDICATIONS: CURRENT MEDICATIONS Cholecalciferol, Vitamin D3, (VITAMIN D-3) 50 mcg (2,000 unit) cap Take 1 capsule by mouth once daily. bumetanide (BUMEX) 2 mg tablet Take 1 tablet by mouth two times a day. For edema. aspirin 81 mg chewable tablet Take 1 tablet by mouth once daily. spironolactone (ALDACTONE) 25 mg tablet Take 1 tablet by mouth every morning. multivitamin-ferrous fumarate-folic acid (CERTAVITE-ANTIOXIDANT) Take 1 tablet by mouth once daily. levothyroxine (SYNTHROID) 100 mcg tablet take one tablet by mouth daily one hour before breakfast empagliflozin (JARDIANCE) 10 mg tablet Take 1 tablet by mouth once daily. qudgbhd-dhhdbmfnf-jfbxtla D3 (OYSTER SHELL CALCIUM-VITAMIN D) 500 mg-5 mcg (200 unit) per tablet Take 1 tablet by mouth two times a day with meals. OXYGEN, HOME THERAPY, 3 L/min by Nasal Cannula route continuous. 4L at bedtime. ZEPBOUND 5 mg/0.5 mL pen injector Inject 5 mg subcutaneously one time a week. fluticasone (FLONASE) 50 mcg/actuation nasal spray INSTILL 2 SPRAYS IN EACH NOSTRIL DAILY fluticasone-vilanterol (BREO ELLIPTA) 100-25 mcg/dose inhaler Inhale 1 inhalation as instructed once daily. IRAIDA 0.35 mg tablet Take 1 tablet by mouth once daily. EPINEPHrine (EPIPEN) 0.3 mg/0.3 mL auto-injector INJECT 1 PEN INTO LATERAL THIGH DIRECTED FOR ALLERGIC REACTIONS TO BEE/WASP STINGS MAY REPEAT IN 5-15 MINUTES IF SYMPTOMS PERSIST * *STAFF REORDER, 4 DAYS IN ADVANCE* MEDICAL SUPPLY Lymphedema compression pump to both legs 1 hour daily. 60 mm Hg. New machine. acetaminophen (TYLENOL EXTRA STRENGTH) 500 mg tablet Take 2 tablets by mouth every 8 hours as needed for pain (For knee pain). COMPOUNDED PRESCRIPTION 1 Each once daily. Custom 20-30mmHg knee high compression stockings. Dx: Recurrent cellulitis legs and morbid obesity.Lymph Edema 8am for 2 pairs per year COMPOUNDED PRESCRIPTION Pt's body checks to be completed once weekly during the day. COMPOUNDED PRESCRIPTION Weight check q Sun at 8pm and q Fri at 4pm Dx:Q87.1 budesonide (PULMICORT) 0.5 mg/2 mL nebulizer solution Inhale 0.5 mg as instructed every morning. (Patient not taking: Reported on 10/05/2024) albuterol HFA (VENTOLIN HFA) 90 mcg/actuation inhaler Inhale 2 puffs as instructed every 4 hours as needed for wheezing/shortness of breath. (Patient not taking: Reported on 10/05/2024) sertraline (ZOLOFT) 25 mg tablet Take 1 tablet by mouth once daily. (Patient not taking: Reported on 10/05/2024) torsemide (DEMADEX) 20 mg tablet Take an extra 20 a day mgs In addition to current dose of 40 mgs 2 times on days you have more than 5 pounds of water weight gain (Patient not taking: Reported on 09/13/2024) torsemide (DEMADEX) 20 mg tablet Take 2 tablets by mouth two times a day. (Patient not taking: Reported on 09/13/2024) mometasone-formoterol (DULERA) 100-5 mcg/actuation inhaler Inhale 2 Puffs as instructed two times a day. (Patient not taking: Reported on 09/13/2024) diphenoxylate-atropine (LOMOTIL) 2.5-0.025 mg per tablet Take 1 tablet by mouth four times a day as needed. (Patient not taking: Reported on 09/13/2024) ondansetron (ZOFRAN) 4 mg tablet Take by mouth every 8 hours as needed for nausea/vomiting. (Patient not taking: Reported on 09/13/2024) carvedilol (COREG) 3.125 mg tablet Take 1 tablet by mouth two times a day. (Patient not taking: Reported on 09/13/2024) ammonium lactate (LAC-HYDRIN) 12 % cream APPLY TOPICALLY TO AFFECTED AREA(S) ON LEGS AT BEDTIME (Patient not taking: Reported on 10/05/2024) Hginn-8-KGE-EPA-Fish Oil 1,000 mg (120 mg-180 mg) cap Take 1 capsule by mouth once daily. (Patient not taking: Reported on 09/13/2024) nystatin (NYAMYC) powder APPLY TOPICALLY TWICE DAILY TO AFFECTED AREA(S) ON ABDOMINAL FOLDS (Patient not taking: Reported on 10/05/2024) clotrimazole (LOTRIMIN) 1 % cream APPLY TOPICALLY TO AFFECTED AREA(S) ON BILATERAL GROIN TWICE DAILY (Patient not taking: Reported on 10/05/2024) Gauze Bandage 2 X 2 bndg Apply 1 application to affected area twice daily. (Patient not taking: Reported on 10/05/2024) cetirizine (ZYRTEC) 10 mg tablet Take 1 tablet by mouth once daily. (Patient not taking: Reported on 10/05/2024) ALLERGIES: ALLERGIES ALLERGIES Allergen Reactions Bee Sting Anaphylaxis Bumex [Bumetanide] Diarrhea, Other: See Comments chula Stewartantin [Phenytoin* PHYSICAL EXAM: BP 104/60 (BP Site: Right Arm, BP Position: Sitting, BP Cuff Size: Regular Adult) Pulse 67 Wt 122.5 kg (270 lb 1.6 oz) LMP 05/13/2007 SpO2 99% BMI 59.49 kg/m Gen- no distress Ext- bilateral lower extremity edema, some fibrosis noted distally, no erythema, mild distal redness, possible right distal medial calf varicose veins. Diagnostic tests reviewed for today's visit: Most recent labs Most recent imaging IMPRESSION: Ms. Abdul is a 44 year old female with lymphedema, venous insufficiency . PLAN and RECOMMENDATIONS: Doing well with compression pumps Continue to elevate when possible Ok to massage area of fibrosis distally on legs Continue to moisturize legs daily Follow up in one year Call with any concerns- or SIGNATURE: Hilda Jeong DO PATIENT NAME: Sia Abdul DATE: October 05, 2024 TIME: 10:55 AM documented in this encounter [facility] 10-05-2024 Note HNO ID: [id number] Author: HILDA JEONG DO Service: ? Author Type: Physician Type: Progress Notes Filed: 10/05/2024 12:22 Note Text: [facility] [place] DEPARTMENT OF VASCULAR SURGERY OUTPATIENT VISIT DATE October 05, 2024 OUTPATIENT VISIT TYPE ESTABLISHED SERVICE DATE: 10/05/2024 SERVICE TIME: 10:55 AM PRIMARY CARE PHYSICIAN: Marilee Thakur MD HISTORY OF PRESENT ILLNESS: Ms. Abdul is a 44 year old female who presents today for a vascular surgery follow-up visit with lymphedema. She has noticed a big improvement with compression pumps. She has noticed an area of concern of distal right medial calf. PAST MEDICAL HISTORY Diagnosis Date Allergic rhinitis, [...] LEFT HEART CATH,PERCUTANEOUS 02/25/2024 normal. NONE SOCIAL HISTORY Social History Tobacco Use Smoking status: Never Smokeless tobacco: Never Substance Use Topics Alcohol use: No Drug use: No MEDICATIONS: Cholecalciferol, Vitamin D3, (VITAMIN D-3) 50 mcg (2,000 unit) cap Take 1 capsule by mouth once daily. bumetanide (BUMEX) 2 mg tablet Take 1 tablet by mouth two times a day. For edema. aspirin 81 mg chewable tablet Take 1 tablet by mouth once daily. spironolactone (ALDACTONE) 25 mg tablet Take 1 tablet by mouth every morning. multivitamin-ferrous fumarate-folic acid (CERTAVITE-ANTIOXIDANT) Take 1 tablet by mouth once daily. levothyroxine (SYNTHROID) 100 mcg tablet take one tablet by mouth daily one hour before breakfast empagliflozin (JARDIANCE) 10 mg tablet Take 1 tablet by mouth once daily. ygyuncm-csfgdzuli-jmwptop D3 (OYSTER SHELL CALCIUM-VITAMIN D) 500 mg-5 mcg (200 unit) per tablet Take 1 tablet by mouth two times a day with meals. OXYGEN, HOME THERAPY, 3 L/min by Nasal Cannula route continuous. 4L at bedtime. ZEPBOUND 5 mg/0.5 mL pen injector Inject 5 mg subcutaneously one time a week. fluticasone (FLONASE) 50 mcg/actuation nasal spray INSTILL 2 SPRAYS IN EACH NOSTRIL DAILY fluticasone-vilanterol (BREO ELLIPTA) 100-25 mcg/dose inhaler Inhale 1 inhalation as instructed once daily. IRAIDA 0.35 mg tablet Take 1 tablet by mouth once daily. EPINEPHrine (EPIPEN) 0.3 mg/0.3 mL auto-injector INJECT 1 PEN INTO LATERAL THIGH DIRECTED FOR ALLERGIC REACTIONS TO BEE/WASP STINGS MAY REPEAT IN 5-15 MINUTES IF SYMPTOMS PERSIST * *STAFF REORDER, 4 DAYS IN ADVANCE* MEDICAL SUPPLY Lymphedema compression pump to both legs 1 hour daily. 60 mm Hg. New machine. acetaminophen (TYLENOL EXTRA STRENGTH) 500 mg tablet Take 2 tablets by mouth every 8 hours as needed for pain (For knee pain). COMPOUNDED PRESCRIPTION 1 Each once daily. Custom 20-30mmHg knee high compression stockings. Dx: Recurrent cellulitis legs and morbid obesity.Lymph Edema 8am for 2 pairs per year COMPOUNDED PRESCRIPTION Pt's body checks to be completed once weekly during the day. COMPOUNDED PRESCRIPTION Weight check q Sun at 8pm and q Fri at 4pm Dx:Q87.1 budesonide (PULMICORT) 0.5 mg/2 mL nebulizer solution Inhale 0.5 mg as instructed every morning. (Patient not taking: Reported on 10/05/2024) albuterol HFA (VENTOLIN HFA) 90 mcg/actuation inhaler Inhale 2 puffs as instructed every 4 hours as needed for wheezing/shortness of breath. (Patient not taking: Reported on 10/05/2024) sertraline (ZOLOFT) 25 mg tablet Take 1 tablet by mouth once daily. (Patient not taking: Reported on 10/05/2024) torsemide (DEMADEX) 20 mg tablet Take an extra 20 a day mgs In addition to current dose of 40 mgs 2 times on days you have more than 5 pounds of water weight gain (Patient not taking: Reported on 09/13/2024) torsemide (DEMADEX) 20 mg tablet Take 2 tablets by mouth two times a day. (Patient not taking: Reported on 09/13/2024) mometasone-formoterol (DULERA) 100-5 mcg/actuation inhaler Inhale 2 Puffs as instructed two times a day. (Patient not taking: Reported on 09/13/2024) diphenoxylate-atropine (LOMOTIL) 2.5-0.025 mg per tablet Take 1 tablet by mouth four times a day as needed. (Patient not taking: Reported on 09/13/2024) ondansetron (ZOFRAN) 4 mg tablet Take by mouth every 8 hours as needed for nausea/vomiting. (Patient not taking: Reported on 09/13/2024) carvedilol (COREG) 3.125 mg tablet Take 1 tablet by mouth two times a day. (Patient not taking: Reported on 09/13/2024) ammonium lactat (more content not included)... [facility] 10-05-2024 History of Presen t illness Narrative Images from the original note were not included. [facility] [place] DEPARTMENT OF VASCULAR SURGERY OUTPATIENT VISIT DATE October 05, 2024 OUTPATIENT VISIT TYPE ESTABLISHED SERVICE DATE: 10/05/2024 SERVICE TIME: 10:55 AM PRIMARY CARE PHYSICIAN: Marilee Thakur MD HISTORY OF PRESENT ILLNESS: Ms. Abdul is a 44 year old female who presents today for a vascular surgery follow-up visit with lymphedema. She has noticed a big improvement with compression pumps. She has noticed an area of concern of distal right medial calf. PAST MEDICAL HISTORY Diagnosis Date Allergic rhinitis, [...] LEFT HEART CATH,PERCUTANEOUS 02/25/2024 normal. NONE SOCIAL HISTORY Social History Tobacco Use Smoking status: Never Smokeless tobacco: Never Substance Use Topics Alcohol use: No Drug use: No MEDICATIONS: Cholecalciferol, Vitamin D3, (VITAMIN D-3) 50 mcg (2,000 unit) cap Take 1 capsule by mouth once daily. bumetanide (BUMEX) 2 mg tablet Take 1 tablet by mouth two times a day. For edema. aspirin 81 mg chewable tablet Take 1 tablet by mouth once daily. spironolactone (ALDACTONE) 25 mg tablet Take 1 tablet by mouth every morning. multivitamin-ferrous fumarate-folic acid (CERTAVITE-ANTIOXIDANT) Take 1 tablet by mouth once daily. levothyroxine (SYNTHROID) 100 mcg tablet take one tablet by mouth daily one hour before breakfast empagliflozin (JARDIANCE) 10 mg tablet Take 1 tablet by mouth once daily. ltsrhun-gukigwocj-wvglegy D3 (OYSTER SHELL CALCIUM-VITAMIN D) 500 mg-5 mcg (200 unit) per tablet Take 1 tablet by mouth two times a day with meals. OXYGEN, HOME THERAPY, 3 L/min by Nasal Cannula route continuous. 4L at bedtime. ZEPBOUND 5 mg/0.5 mL pen injector Inject 5 mg subcutaneously one time a week. fluticasone (FLONASE) 50 mcg/actuation nasal spray INSTILL 2 SPRAYS IN EACH NOSTRIL DAILY fluticasone-vilanterol (BREO ELLIPTA) 100-25 mcg/dose inhaler Inhale 1 inhalation as instructed once daily. IRAIDA 0.35 mg tablet Take 1 tablet by mouth once daily. EPINEPHrine (EPIPEN) 0.3 mg/0.3 mL auto-injector INJECT 1 PEN INTO LATERAL THIGH DIRECTED FOR ALLERGIC REACTIONS TO BEE/WASP STINGS MAY REPEAT IN 5-15 MINUTES IF SYMPTOMS PERSIST * *STAFF REORDER, 4 DAYS IN ADVANCE* MEDICAL SUPPLY Lymphedema compression pump to both legs 1 hour daily. 60 mm Hg. New machine. acetaminophen (TYLENOL EXTRA STRENGTH) 500 mg tablet Take 2 tablets by mouth every 8 hours as needed for pain (For knee pain). COMPOUNDED PRESCRIPTION 1 Each once daily. Custom 20-30mmHg knee high compression stockings. Dx: Recurrent cellulitis legs and morbid obesity.Lymph Edema 8am for 2 pairs per year COMPOUNDED PRESCRIPTION Pt's body checks to be completed once weekly during the day. COMPOUNDED PRESCRIPTION Weight check q Sun at 8pm and q Fri at 4pm Dx:Q87.1 budesonide (PULMICORT) 0.5 mg/2 mL nebulizer solution Inhale 0.5 mg as instructed every morning. (Patient not taking: Reported on 10/05/2024) albuterol HFA (VENTOLIN HFA) 90 mcg/actuation inhaler Inhale 2 puffs as instructed every 4 hours as needed for wheezing/shortness of breath. (Patient not taking: Reported on 10/05/2024) sertraline (ZOLOFT) 25 mg tablet Take 1 tablet by mouth once daily. (Patient not taking: Reported on 10/05/2024) torsemide (DEMADEX) 20 mg tablet Take an extra 20 a day mgs In addition to current dose of 40 mgs 2 times on days you have more than 5 pounds of water weight gain (Patient not taking: Reported on 09/13/2024) torsemide (DEMADEX) 20 mg tablet Take 2 tablets by mouth two times a day. (Patient not taking: Reported on 09/13/2024) mometasone-formoterol (DULERA) 100-5 mcg/actuation inhaler Inhale 2 Puffs as instructed two times a day. (Patient not taking: Reported on 09/13/2024) diphenoxylate-atropine (LOMOTIL) 2.5-0.025 mg per tablet Take 1 tablet by mouth four times a day as needed. (Patient not taking: Reported on 09/13/2024) ondansetron (ZOFRAN) 4 mg tablet Take by mouth every 8 hours as needed for nausea/vomiting. (Patient not taking: Reported on 09/13/2024) carvedilol (COREG) 3.125 mg tablet Take 1 tablet by mouth two times a day. (Patient not taking: Reported on 09/13/2024) ammonium lactate (LAC-HYDRIN) 12 % cream APPLY TOPICALLY TO AFFECTED AREA(S) ON LEGS AT BEDTIME (Patient not taking: Reported on 10/05/2024) Szhyc-2-XRQ-EPA-Fish Oil 1,000 mg (120 mg-180 mg) cap Take 1 capsule by mouth once daily. (Patient not taking: Reported on 09/13/2024) nystatin (NYAMYC) powder APPLY TOPICALLY TWICE DAILY TO AFFECTED AREA(S) ON ABDOMINAL FOLDS (Patient not taking: Reported on 10/05/2024) clotrimazole (LOTRIMIN) 1 % cream APPLY TOPICALLY TO AFFECTED AREA(S) ON BILATERAL GROIN TWICE DAILY (Patient not taking: Reported on 10/05/2024) Gauze Bandage 2 X 2 bndg Apply 1 application to affected area twice daily. (Patient not taking: Reported on 10/05/2024) cetirizine (ZYRTEC) 10 mg tablet Take 1 tablet by mouth once daily. (Patient not taking: Reported on 10/05/2024) ALLERGIES: ALLERGIES Allergen Reactions Bee Sting Anaphylaxis Bumex [Bumetanide] Diarrhea, Other: See Comments headahes Dilantin [Phenytoin* PHYSICAL EXAM: BP 104/60 (BP Site: Right Arm, BP Position: Sitting, BP Cuff Size: Regular Adult) Pulse 67 Wt 122.5 kg (270 lb 1.6 oz) LMP 05/13/2007 SpO2 99% BMI 59.49 kg/m Gen- no distress Ext- bilateral lower extremity edema, some fibrosis noted distally, no erythema, mild distal redness, possible right distal medial calf varicose veins. Diagnostic tests reviewed for today's visit: Most recent labs Most recent imaging IMPRESSION: Ms. Abdul is a 44 year old female with lymphedema, venous insufficiency . PLAN and RECOMMENDATIONS: Doing well with compression pumps Continue to elevate when possible Ok to massage area of fibrosis distally on legs Continue to moisturize legs daily Follow up in one year Call with any concerns- or SIGNATURE: Hilda Jeong DO PATIENT NAME: Sia Abdul DATE: October 05, 2024 TIME: 10:55 AM documented in this encounter [facility] 10-04-2024 Telephone encounter Note The patient has been identified by name and date of : Yes Caregiver verified no other encounters exist for this prescription request: Yes Caregiver confirmed with patient/requestor that no other refills are due, in the near future, with this provider at this time: Yes The last office visit in the department: 09/13/2024 Does the patient have a future office visit with this provider/department: Yes 10/26/2024 Requested Prescriptions Pending Prescriptions Disp Refills ammonium lactate (LAC-HYDRIN) 12 % cream 280 g 10 Sig: APPLY TOPICALLY TO AFFECTED AREA(S) ON LEGS AT BEDTIME nystatin (NYAMYC) powder 60 g 10 Sig: APPLY TOPICALLY TWICE DAILY TO AFFECTED AREA(S) ON ABDOMINAL FOLDS Candelaria Ball LPN October 04, 2024 10:14 AM [facility] 10-04-2024 Miscellaneous Notes The patient has been identified by name and date of : Yes Caregiver verified no other encounters exist for this prescription request: Yes Caregiver confirmed with patient/requestor that no other refills are due, in the near future, with this provider at this time: Yes The last office visit in the department: 09/13/2024 Does the patient have a future office visit with this provider/department: Yes 10/26/2024 Requested Prescriptions Pending Prescriptions Disp Refills ammonium lactate (LAC-HYDRIN) 12 % cream 280 g 10 Sig: APPLY TOPICALLY TO AFFECTED AREA(S) ON LEGS AT BEDTIME nystatin (NYAMYC) powder 60 g 10 Sig: APPLY TOPICALLY TWICE DAILY TO AFFECTED AREA(S) ON ABDOMINAL FOLDS Candelaria Ball LPN October 04, 2024 10:14 AM documented in this encounter [facility] 09-28-2024 Telephone encounter Note Zainab with [facility] calls to request prescription as below. Reviewed notes. Zainab asking for prescription that provider recommends be sent to them so they can fill medication. Pended. Eulalia Laureano RN [facility] 09-28-2024 Miscellaneous Notes Zainab with [facility] calls to request prescription as below. Reviewed notes. Zainab asking for prescription that provider recommends be sent to them so they can fill medication. Pended. Eulalia Laureano RN Tried calling [facility], but they are closed. Will need to call tomorrow during day time hours. Teresa Ferrera RN Well, I would actually like her to take 2000 international unit(s) daily with food daily. Its a much better way to get the supplement Marilee Lassiter MD Zainab with [facility] calls to request Vit D3 5,000 units every Friday for pt. Zainab reports previous dr prescribed this for pt. This is not on pt's med list. Please review. Mandy Jordan LPN documented in this encounter [facility] 09-27-2024 Telephone encounter Note Tried calling [facility], but they are closed. Will need to call tomorrow during day time hours. Teresa Ferrera, RODRÍGUEZ [facility] 09-27-2024 Telephone encounter Note Well, I would actually like her to take 2000 international unit(s) daily with food daily. Its a much better way to get the supplement Marilee Lassiter MD T [facility] 09-27-2024 Telephone encounter Note Zainab with [facility] calls to request Vit D3 5,000 units every Friday for pt. Zainab reports previous dr prescribed this for pt. This is not on pt's med list. Please review. Mandy Jordan LPN T [facility] 09-21-2024 Telephone encounter Note Prescription Refill Information The patient has been identified by name and date of : Yes Caregiver verified no other encounters exist for this prescription request: Yes Caregiver confirmed with patient/requestor that no other refills are due, in the near future, with this provider at this time: Yes The last office visit in the department: 09-13-24 Does the patient have a future office visit with this provider/department: Yes Requested Prescriptions Pending Prescriptions Disp Refills bumetanide (BUMEX) 2 mg tablet 180 tablet Sig: Take 1 tablet by mouth two times a day. For edema. aspirin 81 mg chewable tablet Sig: Take 1 tablet by mouth once daily. spironolactone (ALDACTONE) 25 mg tablet 90 tablet Sig: Take 1 tablet by mouth every morning. multivitamin-ferrous fumarate-folic acid (CERTAVITE-ANTIOXIDANT) 31 tablet 10 Sig: Take 1 tablet by mouth once daily. levothyroxine (SYNTHROID) 100 mcg tablet 31 tablet 10 Sig: take one tablet by mouth daily one hour before breakfast empagliflozin (JARDIANCE) 10 mg tablet 90 tablet Sig: Take 1 tablet by mouth once daily. inuvjoy-vntpgaikd-tgpwcvu D3 (OYSTER SHELL CALCIUM-VITAMIN D) 500 mg-5 mcg (200 unit) per tablet 62 tablet 11 Sig: Take 1 tablet by mouth two times a day with meals. Kelley Royal September 21, 2024 9:02 AM T [facility] 09-21-2024 Miscellaneous Notes Prescription Refill Information The patient has been identified by name and date of : Yes Caregiver verified no other encounters exist for this prescription request: Yes Caregiver confirmed with patient/requestor that no other refills are due, in the near future, with this provider at this time: Yes The last office visit in the department: 09-13-24 Does the patient have a future office visit with this provider/department: Yes Requested Prescriptions Pending Prescriptions Disp Refills bumetanide (BUMEX) 2 mg tablet 180 tablet Sig: Take 1 tablet by mouth two times a day. For edema. aspirin 81 mg chewable tablet Sig: Take 1 tablet by mouth once daily. spironolactone (ALDACTONE) 25 mg tablet 90 tablet Sig: Take 1 tablet by mouth every morning. multivitamin-ferrous fumarate-folic acid (CERTAVITE-ANTIOXIDANT) 31 tablet 10 Sig: Take 1 tablet by mouth once daily. levothyroxine (SYNTHROID) 100 mcg tablet 31 tablet 10 Sig: take one tablet by mouth daily one hour before breakfast empagliflozin (JARDIANCE) 10 mg tablet 90 tablet Sig: Take 1 tablet by mouth once daily. mrjiwyp-vadhhvguj-nacckji D3 (OYSTER SHELL CALCIUM-VITAMIN D) 500 mg-5 mcg (200 unit) per tablet 62 tablet 11 Sig: Take 1 tablet by mouth two times a day with meals. Kelley Royal September 21, 2024 9:02 AM documented in this encounter [facility] 09-13-2024 Telephone encounter Note Noted and agree Regards, Marilee Thakur MD [facility] 09-13-2024 Miscellaneous Notes Noted and agree Regards, Marilee Thakur MD Bolivar RAMIREZ calling from [facility] to report plan of care for patient and physical therapy will visit patient 2 times a week for 3 weeks and 1 time a week for 5 weeks. No call back needed unless questions. Lillie Marshall RN documented in this encounter [facility] 09-13-2024 Instructions Marilee Thakur MD - 09/13/2024 5:51 PM EDT We discussed your recent medical history and current care plan: - You were hospitalized in May for acute hypoxic hypercapnic respiratory failure, acute diastolic heart failure with a right-sided component, severe pulmonary hypertension, and other complications. You were treated with antibiotics (azithromycin, ceftriaxone, and doxycycline) for mycoplasma pneumonia and managed with BiPAP, diuretics, and other supportive care. You were discharged to a rehabilitation facility and are now living in a skilled nursing with ongoing care. We discussed your medications: - Continue taking the following medications as prescribed: - Aspirin once daily. - Budesonide inhalation (currently on hold; we will reassess if needed). - Bumetanide 2 mg twice daily (morning and evening) for fluid management. - Jardiance 10 mg daily for diastolic dysfunction. - Levothyroxine 100 mcg daily. - Spironolactone 25 mg daily for diastolic dysfunction. - Tirzepatide (weekly injection) for weight management and sleep apnea. - Breo inhaler twice daily for maintenance of respiratory health. - I have sent a prescription for an albuterol rescue inhaler to [facility] on [facility] [facility]. Use this as needed for shortness of breath, especially during physical activity. We discussed your weight management: - Your current weight is 280 pounds, down from 289 pounds last week. Continue daily weight monitoring and record your results. Your goal is to reduce fluid retention and achieve a more comfortable weight. - Tirzepatide and Jardiance will help with weight management and diastolic dysfunction. We can adjust the tirzepatide dose as needed. We discussed your respiratory care: - You are using an AVAP machine at night, which is helping you feel more rested in the morning. Continue using this nightly. - You prefer the nebulizer for acute respiratory symptoms. We will ensure you have access to a nebulizer PRN (as needed) in addition to your albuterol rescue inhaler. We discussed your physical therapy and mobility: - You are using a walker for mobility around the house and a wheelchair for longer distances. Physical therapy will work with you twice weekly for the next three weeks to improve your independence. After that, sessions will decrease to once weekly unless further need is identified. We discussed your ongoing care: - Continue using compression pumps twice daily (one hour in the morning and one hour in the evening) and elevating your feet for one hour twice daily to manage swelling. - Maintain your fluid restriction of 1,440 mL per day (no more than 560 mL per shift). - Nursing staff will perform weekly skin checks and monitor your vitals. - Occupational therapy and speech therapy are also involved in your care as needed. Follow-up: - Your next appointment with me is in six weeks. Please bring any updated medication lists or standing orders for review at that time. - If you experience worsening shortness of breath, significan, t weight gain, or any other concerning symptoms, please contact our office immediately. documented in this encounter [facility] 09-13-2024 Note HNO ID: [id number] Author: MARILEE THAKUR MD Service: ? Author Type: Physician Type: Progress Notes Filed: 09/13/2024 18:00 Note Text: Reason for Visit Follow up after hospital discharge HPI Jayshree Abdul is a 44-year-old female with a history of acute hypoxic hypercapnic respiratory failure, acute diastolic heart failure, severe pulmonary hypertension, prader conchita syndrome, DACIA, and class 3 obesity, presenting for follow-up after a recent hospitalization and subsequent stays at a long term facility and a skilled nursing. Jayshree was admitted to [facility] in May for acute hypoxic hypercapnic respiratory failure, acute diastolic heart failure with a right-sided component, severe pulmonary hypertension, DACIA with a component of obesity hypoventilation syndrome, and class 3 obesity. She presented to the [facility] ED on May 12 with increased dyspnea and became unresponsive, experiencing a PEA arrest requiring 2 rounds of CPR before ROSC was achieved. She was intubated and treated for mycoplasma pneumonia with azithromycin and ceftriaxone. She was extubated 2 days later but experienced another episode of dyspnea and unresponsiveness, requiring BiPAP support and transfer to the CCU. She was later treated with doxycycline for mycoplasma pneumonia. Following her discharge from [facility] at the end of May, Jayshree spent approximately 1 month at [facility] and then moved to [facility] for rehabilitation. She experienced a relapse during her stay at [facility] and was readmitted briefly. Jayshree has been living in a waiver home for the past 7 days. he needs a nebulizer machine and is requesting albuterol inhaler for prn use when she is walking. she was using the walker till this week and is finally able to stand and walk by herself. Jayshree is currently on multiple medications, including aspirin, budesonide inhalation, bumetanide 2 mg BID, Jardiance 10 mg, levothyroxine 100 mcg, spironolactone 25 mg, Milk of Magnesia as needed, a multivitamin, norethindrone, and tirzepatide 5 mg. She is also on a fluid restriction of 1,440 mL/day and uses compression boots twice daily. She reports a weight of 280 lbs, down from 289 lbs last week, with a previous high of 300 lbs in February due to fluid retention. She uses an AVAP at night and reports feeling more rested in the morning. She also uses a walker for mobility but has started walking short distances without it. She requests a rescue albuterol inhaler for dyspnea with exertion. Social History Tobacco Use Smoking status: Never Smokeless tobacco: Never Substance Use Topics Alcohol use: No Drug use: No Past medical history, appointments, medications, allergies reviewed. Pertinent Lab/Diagnostic Studies are reviewed and discussed today Current Outpatient Medications: OXYGEN, HOME THERAPY, budesonide (PULMICORT) 0.5 mg/2 mL nebulizer solution bumetanide (BUMEX) 2 mg tablet empagliflozin (JARDIANCE) 10 mg tablet ipratropium-albuterol (DUONEB) 0.5 mg-3 mg(2.5 mg base)/3 mL [facility] spironolactone (ALDACTONE) 25 mg tablet ZEPBOUND 5 mg/0.5 mL pen injector fluticasone (FLONASE) 50 mcg/actuation nasal spray fluticasone-vilanterol (BREO ELLIPTA) 100-25 mcg/dose inhaler yjpjlfm-luftcfdwg-xmwszpx D3 (OYSTER SHELL CALCIUM-VITAMIN D) 500 mg-5 mcg (200 unit) per tablet IRAIDA 0.35 mg tablet EPINEPHrine (EPIPEN) 0.3 mg/0.3 mL auto-injector MEDICAL SUPPLY aspirin 81 mg chewable tablet ammonium lactate (LAC-HYDRIN) 12 % cream multivitamin-ferrous fumarate-folic acid (CERTAVITE-ANTIOXIDANT) levothyroxine (SYNTHROID) 100 mcg tablet nystatin (NYAMYC) powder acetaminophen (TYLENOL EXTRA STRENGTH) 500 mg tablet Gauze Bandage 2 X 2 bndg cetirizine (ZYRTEC) 10 mg tablet COMPOUNDED PRESCRIPTION COMPOUNDED PRESCRIPTION COMPOUNDED PRESCRIPTION albuterol HFA (VENTOLIN HFA) 90 mcg/actuation inhaler sertraline (ZOLOFT) 25 mg tablet torsemide (DEMADEX) 20 mg tablet torsemide (DEMADEX) 20 mg tablet mometasone-formoterol (DULERA) 100-5 mcg/actuation inhaler diphenoxylate-atropine (LOMOTIL) 2.5-0.025 mg per tablet ondansetron (ZOFRAN) 4 mg tablet carvedilol (COREG) 3.125 mg tablet Bpugr-4-LZZ-EPA-Fish Oil 1,000 mg (120 mg-180 mg) cap clotrimazole (LOTRIMIN) 1 % cream Health Maintenance Depression Screening Anxiety Screening Hepatitis B Vaccine(1 of 3 - 19+ 3-dose series) Pneumococcal Vaccine(2 of 2 - PCV) Medicare Annual Wellness Visit Covid-19 Vaccine( season) Mammogram Screening@ Review Of Systems Respiratory: (+) dyspnea on exertion Gastrointestinal: (+) abdominal pain, (-) constipation Physical Exam BP 115/76 Pulse 60 Resp 18 Wt 127 kg (280 lb) LMP 05/13/2007 SpO2 95% BMI 61.67 kg/m? GENERAL: NAD, alert and oriented. SKIN: Unremarkable, no rash or skin lesions. HEAD: Normocephalic. EYES: PERRLA, EOMI, conjunctiva clear. NECK: Supple, no lymp (more content not included)... [facility] 09-13-2024 History of Presen t illness Narrative Reason for Visit Follow up after hospital discharge HPI Jayshree Abdul is a 44-year-old female with a history of acute hypoxic hypercapnic respiratory failure, acute diastolic heart failure, severe pulmonary hypertension, prader conchita syndrome, DACIA, and class 3 obesity, presenting for follow-up after a recent hospitalization and subsequent stays at a long term facility and a skilled nursing. Jayshree was admitted to [facility] in May for acute hypoxic hypercapnic respiratory failure, acute diastolic heart failure with a right-sided component, severe pulmonary hypertension, DACIA with a component of obesity hypoventilation syndrome, and class 3 obesity. She presented to the [facility] ED on May 12 with increased dyspnea and became unresponsive, experiencing a PEA arrest requiring 2 rounds of CPR before ROSC was achieved. She was intubated and treated for mycoplasma pneumonia with azithromycin and ceftriaxone. She was extubated 2 days later but experienced another episode of dyspnea and unresponsiveness, requiring BiPAP support and transfer to the CCU. She was later treated with doxycycline for mycoplasma pneumonia. Following her discharge from [facility] at the end of May, Jayshree spent approximately 1 month at [facility] and then moved to [facility] for rehabilitation. She experienced a relapse during her stay at [facility] and was readmitted briefly. Jayshree has been living in a waiver home for the past 7 days. he needs a nebulizer machine and is requesting albuterol inhaler for prn use when she is walking. she was using the walker till this week and is finally able to stand and walk by herself. Jayshree is currently on multiple medications, including aspirin, budesonide inhalation, bumetanide 2 mg BID, Jardiance 10 mg, levothyroxine 100 mcg, spironolactone 25 mg, Milk of Magnesia as needed, a multivitamin, norethindrone, and tirzepatide 5 mg. She is also on a fluid restriction of 1,440 mL/day and uses compression boots twice daily. She reports a weight of 280 lbs, down from 289 lbs last week, with a previous high of 300 lbs in February due to fluid retention. She uses an AVAP at night and reports feeling more rested in the morning. She also uses a walker for mobility but has started walking short distances without it. She requests a rescue albuterol inhaler for dyspnea with exertion. Social History Tobacco Use Smoking status: Never Smokeless tobacco: Never Substance Use Topics Alcohol use: No Drug use: No Past medical history, appointments, medications, allergies reviewed. Pertinent Lab/Diagnostic Studies are reviewed and discussed today Current Outpatient Medications: OXYGEN, HOME THERAPY, budesonide (PULMICORT) 0.5 mg/2 mL nebulizer solution bumetanide (BUMEX) 2 mg tablet empagliflozin (JARDIANCE) 10 mg tablet ipratropium-albuterol (DUONEB) 0.5 mg-3 mg(2.5 mg base)/3 mL nebu spironolactone (ALDACTONE) 25 mg tablet ZEPBOUND 5 mg/0.5 mL pen injector fluticasone (FLONASE) 50 mcg/actuation nasal spray fluticasone-vilanterol (BREO ELLIPTA) 100-25 mcg/dose inhaler vspusoj-yhusjnzju-lawkidq D3 (OYSTER SHELL CALCIUM-VITAMIN D) 500 mg-5 mcg (200 unit) per tablet IRAIDA 0.35 mg tablet EPINEPHrine (EPIPEN) 0.3 mg/0.3 mL auto-injector MEDICAL SUPPLY aspirin 81 mg chewable tablet ammonium lactate (LAC-HYDRIN) 12 % cream multivitamin-ferrous fumarate-folic acid (CERTAVITE-ANTIOXIDANT) levothyroxine (SYNTHROID) 100 mcg tablet nystatin (NYAMYC) powder acetaminophen (TYLENOL EXTRA STRENGTH) 500 mg tablet Gauze Bandage 2 X 2 bndg cetirizine (ZYRTEC) 10 mg tablet COMPOUNDED PRESCRIPTION COMPOUNDED PRESCRIPTION COMPOUNDED PRESCRIPTION albuterol HFA (VENTOLIN HFA) 90 mcg/actuation inhaler sertraline (ZOLOFT) 25 mg tablet torsemide (DEMADEX) 20 mg tablet torsemide (DEMADEX) 20 mg tablet mometasone-formoterol (DULERA) 100-5 mcg/actuation inhaler diphenoxylate-atropine (LOMOTIL) 2.5-0.025 mg per tablet ondansetron (ZOFRAN) 4 mg tablet carvedilol (COREG) 3.125 mg tablet Uqyqo-6-NAK-EPA-Fish Oil 1,000 mg (120 mg-180 mg) cap clotrimazole (LOTRIMIN) 1 % cream Health Maintenance Depression Screening Anxiety Screening Hepatitis B Vaccine(1 of 3 - 19+ 3-dose series) Pneumococcal Vaccine(2 of 2 - PCV) Medicare Annual Wellness Visit Covid-19 Vaccine( season) Mammogram Screening@ Review Of Systems Respiratory: (+) dyspnea on exertion Gastrointestinal: (+) abdominal pain, (-) constipation Physical Exam BP 115/76 Pulse 60 Resp 18 Wt 127 kg (280 lb) LMP 05/13/2007 SpO2 95% BMI 61.67 kg/m GENERAL: NAD, alert and oriented. SKIN: Unremarkable, no rash or skin lesions. HEAD: Normocephalic. EYES: PERRLA, EOMI, conjunctiva clear. NECK: Supple, no lymphadenopathy, normal thyroid, no carotid bruits. LUNGS: Clear to auscultation bilaterally, no wheezes/rhonchi/rales. HEART: Regular rate and rhythm, no murmurs. No ectopy. EXTREMITIES: Normal, no deformities, no skin discoloration, no edema. NEURO: Awake, alert and oriented x3, cranial nerves II-XII grossly intact, normal gait, no involuntary motions. Labs: (05/12) - Mycoplasma pneumonia test: Positive - Lactic acid: Elevated - Transaminases: Elevated - Albumin: Decreased - Renal function: Impaired Imaging: (May) - Unspecified imaging: Right ventricular pulmonary pressures at 78 mmHg; hepatic vein reversal and severe pulmonary hypertension (WHO Group 2 and 3) Assessment and Plan 1. Moderate persistent asthma, unspecified whether complicated ([facility]) (J45.40) Currently managed with Breo inhaler twice daily; no rescue albuterol inhaler available. Patient prefers nebulizer treatments over inhaler. - Ordered albuterol rescue inhaler to be used PRN for dyspnea, sent prescription to [facility] on [facility]. - Continue Breo inhaler twice daily. 2. Prader-Willi syndrome ([facility]) (Q87.11) Patient is residing in a waiver home with 24-hour staffing. Weight management is ongoing with current weight at 280 lbs, down from 289 lbs last week. - Continue current medication regimen including tirzepatide and Jardiance for weight management. - Monitor weight daily. - Continue physical therapy twice weekly for 3 weeks, then reassess. 3. Pulmonary hypertension (HCC) (I27.20) Severe pulmonary hypertension, WHO Group 2 and 3, diagnosed during hospitalization in May. - Continue current medication regimen including bumetanide 2 mg BID and spironolactone 25 mg daily. - Monitor fluid status with daily weights and fluid restriction to 1440 mL/day. 4. Acute diastolic congestive heart failure (HCC) (I50.31) Acute on chronic diastolic congestive heart failure (HCC) (I50.33) Diagnosed during hospitalization in May with right-sided component and right ventricular pulmonary pressures of 78 mmHg. Currently managed with bumetanide, spironolactone, and Jardiance. - Continue bumetanide 2 mg BID, spironolactone 25 mg daily, and Jardiance 10 mg daily. - Monitor fluid status with daily weights and fluid restriction to 1440 mL/day. 5. Obstructive sleep apnea syndrome (G47.33) Obesity hypoventilation syndrome (HCC) (E66.2) DACIA with component of obesity hypoventilation syndrome. Currently using AVAP device at night, which has improved sleep quality. - Continue use of AVAP device at night. - Monitor sleep quality and report any issues. 6. Acquired hypothyroidism (E03.9) Managed with levothyroxine 100 mcg daily. - Continue levothyroxine 100 mcg daily. 7. Cardiac arrest (HCC) (I46.9) Patient experienced cardiac arrest in May, requiring two rounds of CPR and ROSC. Currently stable. - Monitor cardiac status. - Follow-up in 6 weeks. 8. Morbid obesity (HCC) (E66.01) Class 3 obesity with current weight at 280 lbs. Managed with tirzepatide and Jardiance. - Continue tirzepatide and Jardiance. - Monitor weight daily. - Follow-up in 6 weeks. Voice recognition software was used to compose this office note. Please excuse any unintended typographical errors. Recording using [employer] software for draft documentation of the visit was discussed with the patient/authorized training representative; all questions welcomed and answered. Patient/authorized training representative agreed to proceed Marilee Thakur MD documented in this encounter [facility] 09-13-2024 Telephone encounter Note Bolivar RAMIREZ calling from [facility] to report plan of care for patient and physical therapy will visit patient 2 times a week for 3 weeks and 1 time a week for 5 weeks. No call back needed unless questions. Lillie Marshall RN [facility] 09-07-2024 Telephone encounter Note Mandy/[facility] notified. Mackenzie Elmore LPN [facility] 09-07-2024 Miscellaneous Notes Mandy/[facility] notified. Mackenzie Elmore LPN Called and left a voicemail for the Lyle from [facility] to call back and ask for a nurse to receive the providers message. Teresa Ferrera RN Yes, I will. Regards, Marilee Thakur MD Lyle calls and states that patient is being discharged from [facility] today. Asking if provider will follow orders for long term? Patient has [facility] follow up scheduled with Dr. Thakur on 09/13/2024. Please review and advise, Lillie Marshall RN Lyle from [facility] calling received orders for long term, PT, OT patient is discharging from [facility] on 09/04. Asking if PCP would follow patient and sign orders? Please advise documented in this encounter [facility] 09-07-2024 Telephone encounter Note The patient has been [...] a future office visit with this provider/department: 09/13/2024 Requested Prescriptions Pending Prescriptions Disp Refills fluticasone (FLONASE) 50 mcg/actuation nasal spray 16 g 10 Sig: INSTILL 2 SPRAYS IN EACH NOSTRIL DAILY fluticasone-vilanterol (BREO ELLIPTA) 100-25 mcg/dose inhaler 1 each 3 Sig: Inhale 1 inhalation as instructed once daily. Kim also requesting copy of current medications. Faxed per request but notified her might not be up to date since rehab stay with verbalized understanding. Eulalia Laureano RN September 07, 2024 9:48 AM [facility] 09-07-2024 Miscellaneous Notes The patient has been identified [...] a future office visit with this provider/department: 09/13/2024 Requested Prescriptions Pending Prescriptions Disp Refills fluticasone (FLONASE) 50 mcg/actuation nasal spray 16 g 10 Sig: INSTILL 2 SPRAYS IN EACH NOSTRIL DAILY fluticasone-vilanterol (BREO ELLIPTA) 100-25 mcg/dose inhaler 1 each 3 Sig: Inhale 1 inhalation as instructed once daily. Kim also requesting copy of current medications. Faxed per request but notified her might not be up to date since rehab stay with verbalized understanding. Eulalia Laureano RN September 07, 2024 9:48 AM documented in this encounter [facility] 09-06-2024 Telephone encounter Note Called and left a voicemail for the Lyle from [facility] to call back and ask for a nurse to receive the providers message. Teresa Ferrera RN [facility] 09-06-2024 Telephone encounter Note Yes, I will. Regards, Marilee Thakur MD [facility] 09-06-2024 Telephone encounter Note Lyle calls and states that patient is being discharged from [facility] today. Asking if provider will follow orders for long term? Patient has [facility] follow up scheduled with Dr. Thakur on 09/13/2024. Please review and advise, Lillie Marshall RN [facility] 09-03-2024 Telephone encounter Note Lyle from [facility] calling received orders for long term, PT, OT patient is discharging from [facility] on 09/04. Asking if PCP would follow patient and sign orders? 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 Patient was adequately diuresed with Bumex and is being discharged on Bumex 4 mg every morning and 2 mg every afternoon. Kidney function has been stable throughout her visit. She is on Jardiance and Aldactone for diastolic heart failure. V/Q negative for chronic VTE. Not a candidate for pulmonary hypertension meds as she has a component of group 2 as well. Limited echo showing dilated RV with normal systolic function, RVSP 41. She is to follow-up outpatient with pulmonary for home nocturnal AVAPS arrangement, she will be returning to nursing facility from hospital. Did speak with patient's mother and all questions and concerns were addressed. She is stable to be discharged back to skilled nursing today. Follow-up with cardiology PCP and pulmonary outpatient. Allergies Bee Stings Dilantin misc non-codified allergy phenytoin unknown Procedures none Consults No qualifying data available. Imaging Results and Diagnostics XR Chest 2 Views Result Date: August 23, 2024 Verified By: LORI WESLEY DO CLINICAL STATEMENT: IMPRESSION: Limited exam but appears to be improving pulmonary edema pattern with mildresidual patchy airspace opacities within the right mid to lower lung. NM Pulmonary Perfusion w/ Vent Aerosol Result Date: August 23, 2024 Verified By: MADIE LESTER MD CLINICAL STATEMENT: IMPRESSION: Pulmonary embolism absent (modified PIOPED II criteria). CT Thorax w/o Contrast Result Date: August 22, 2024 Verified By: TONO LANDERS DO CLINICAL STATEMENT: IMPRESSION: 1. Cardiomegaly with pulmonary vascular congestion and ground-glass alveolardisease in the lower lobes. This could be secondary to pulmonary edema oratypical pneumonia.2. No acute cardiopulmonary process identified.3. Limited evaluation of the upper abdomen due to body size and beamhardening artifact from the patient's arms. XR Chest 1 View Result Date: August 20, 2024 Verified By: MOE JARQUIN MD CLINICAL STATEMENT: IMPRESSION: No significant change in aeration. Physical Exam Vitals and Measurements T: 36.9 C (Oral) TMIN: 36.4 C (Oral) TMAX: 37.3 C (Axillary) HR: 76 (Monitored) RR: 18 BP: 114/51 SpO2: 98% WT: 135.9 kg Weight Current Weight Dosing Weight: 136.5 kg (08/22/24) Current Weight: 135.9 kg (08/27/24) Dosing Weight: 150 kg (08/20/24) Current Weight: 136.5 kg (08/26/24) GENERAL: Pt is comfortable in bed. 2 L nasal cannula NECK: no JVD CVS: S1 & S2 audible, Regular Rate and Rhythm, No Murmurs LUNG: Decreased breath sounds bilaterally GI: + BS, Abdomen is Soft EXTREMITIES: improved Lower extremity edema SKIN: Warm & Dry Pending Labs and Studies none Code Status Code Status - Ordered -- 08/20/24 2:32:00 EDT, Full Code, Constant Order Admission Date 08/20/24 Discharge Date 08/27/24 Medications New Prescription empagliflozin (Jardiance 10 mg oral tablet)1 tab(s) by mouth once a day (in the morning). Changed bumetanide (bumetanide 1 mg oral tablet)2 tab(s) by mouth once a day (in the evening). bumetanide (bumetanide 1 mg oral tablet)4 tab(s) by mouth once a day (in the morning). Unchanged [id number] Milligram by mouth every 4 hours as needed Pain, scale 1-3. acetaminophen (acetaminophen 650 mg rectal suppository)1 suppository(ies) in the rectum every 4 hours as needed as needed for pain. acetaminophen (acetaminophen 650 mg rectal suppository)1 suppository(ies) in the rectum every 4 hours as needed for fever. aluminum hydroxide-magnesium hydroxide (aluminum hydroxide-magnesium hydroxide 200 mg-200 mg/5 mL oral suspension)30 Milliliter by mouth every 4 hours. ammonium lactate topical (ammonium lactate 12% topical cream)1 application Topical daily at bedtime. aspirin (aspirin 81 mg oral delayed release tablet)1 tab(s) by mouth every day. atorvastatin (atorvastatin 20 mg oral tablet)1 tab(s) by mouth every day. Refills: 0. bisacodyl (bisacodyl 10 mg rectal enema)1 Each in the rectum once a day as needed as needed for constipation. budesonide (budesonide 0.5 mg/2 mL inhalation suspension)2 Milliliter by inhalation once a day. calcium carbonate (calcium carbonate 500 mg (200 mg elemental calcium) oral tablet, chewable)1 tab(s) Chewed two (2) times a day. cholecalciferol (Vitamin D3 125 mcg (5000 intl units) oral capsule)1 cap by mouth every week for 12 week(s). EPINEPHrine (EPINEPHrine 0.3 mg injectable kit)1 Each Intramuscular As Directed as needed Allergic reaction. glucagon (Glucagon Emergency Kit for Low Blood Sugar 1 mg injection)1 Milligram Intramuscular As Directed as needed Hypoglycemia. [id number] Milliliter by mouth every 4 hours as needed for cough. ipratropium (ipratropium 500 mcg/2.5 mL inhalation solution)2.5 Milliliter by inhalation four (4) times a day for 30 Days. Refills: 0. levothyroxine (levothyroxine 100 mcg (0.1 mg) oral tablet)1 tab(s) by mouth once a day. magnesium hydroxide (Milk of Magnesia 8% oral suspension)30 Milliliter by mouth daily at bedtime as needed as needed for constipation. multivitamin with minerals (Therapeutic Multiple Vitamins with Minerals, Zinc and Elderberry oral tablet, chewable)1 tab Chewed once a day. senna (Senna 8.6 mg oral tablet)1 tab(s) by mouth daily at bedtime as needed as needed for constipation. sodium biphosphate-sodium phosphate (Fleet Enema)1 Each in the rectum once a day. spironolactone (Aldactone 25 mg oral tablet)1 tab(s) by mouth once a day with a meal. Refills: 0. tirzepatide (tirzepatide 5 mg/0.5 mL subcutaneous solution)5 Milligram Subcutaneous every week. rotate injection sites. Follow Up Follow Up with ANSELMO FALK MD When:Within 5 to 7 days Where:[address] [place] [address] [id number] [facility] [place] [address]- [phone] Additional Information: Follow up with cardiology within 1 week. Follow Up with Follow up with primary care provider When:Within 5 to 7 days Additional Information: Follow-up with your PCP within 1 week Follow Up with Javed Corea - [facility] [phone] When:Within 1-2 days Follow Up with TIA MORRISON When:Within 1-2 days Where:[address] [place] [address]- [phone] Business (1) Follow Up Appointments No qualifying data available. Follow Up Labs/Studies Discharge Labs No Follow-up Labs Discharge Studies No Follow-up Studies Discharge Diet Transfer of Care Diet - Ordered -- Type of Diet: Cardiac, Sodium limit: Low, 08/27/24 14:08:00 EDT Discharge Activity Transfer of Care Activity - Ordered -- Activity As Tolerated, 08/27/24 14:08:00 EDT Condition on Discharge stable Discharge Disposition detention Time Spent > 30 min Digitally Signed by ESTELA GARCIA MD on 08/27/2024 02:14 PM [facility] 08-27-2024 Hospital Discharg e instructions Patient Education 08/27/2024 14:38:55 Heart Failure Exacerbation Heart Failure Exacerbation Heart failure is a condition in which the heart does not fill up with enough blood, and therefore does not pump enough blood and oxygen to the body. When this happens, parts of the body do not get the blood and oxygen they need to function properly. This can cause symptoms such as breathing problems, fatigue, swelling, and confusion. Heart failure exacerbation refers to heart failure symptoms that get worse. The symptoms may get worse suddenly or develop slowly over time. Heart failure exacerbation is a serious medical problem that should be treated right away. What are the causes? A heart failure exacerbation can be triggered by: Not taking your heart failure medicines correctly. Infections. Eating an unhealthy diet or a diet that is high in salt (sodium). Drinking too much fluid. Drinking alcohol. Taking illegal drugs, such as cocaine or methamphetamine. Not exercising. Other causes include: Other heart conditions such as an irregular heartbeat (arrhythmia). Anemia. Other medical problems, such as kidney failure. Sometimes the cause of the exacerbation is not known. What are the signs or symptoms? When heart failure symptoms suddenly or slowly get worse, this may be a sign of heart failure exacerbation. Symptoms of heart failure include: Breathing problems or shortness of breath. Chronic coughing or wheezing. Fatigue. Nausea or lack of appetite. Feeling light-headed. Confusion or memory loss. Increased heart rate or irregular heartbeat. Buildup of fluid in the legs, ankles, feet, or abdomen. Difficulty breathing when lying down. How is this diagnosed? This condition is diagnosed based on: Your symptoms and medical history. A physical exam. You may also have tests, including: Electrocardiogram (ECG). This test measures the electrical activity of your heart. Echocardiogram. This test uses sound waves to take a picture of your heart to see how well it works. Blood tests. Imaging tests, such as: ?Chest X-ray. ?MRI. ?Ultrasound. Stress test. This test examines how well your heart functions when you exercise. Your heart is monitored while you exercise on a treadmill or exercise bike. If you cannot exercise, medicines may be used to increase your heartbeat in place of exercise. Cardiac catheterization. During this test, a thin, flexible tube (catheter) is inserted into a blood vessel and threaded up to your heart. This test allows your health care provider to check the arteries that lead to your heart (coronary arteries). Right heart catheterization. During this test, the pressure in your heart is measured. How is this treated? This condition may be treated by: Adjusting your heart medicines. Maintaining a healthy lifestyle. This includes: ?Eating a heart-healthy diet that is low in sodium. ?Not using any products that contain nicotine or tobacco, such as cigarettes and e-cigarettes. ?Regular exercise. ?Monitoring your fluid intake. ?Monitoring your weight and reporting changes to your health care provider. Treating sleep apnea, if you have this condition. Surgery. This may include: ?Implanting a device that helps both sides of your heart contract at the same time (cardiac resynchronization therapy device). This can help with heart function and relieve heart failure symptoms. ?Implanting a device that can correct heart rhythm problems (implantable cardioverter defibrillator). ?Connecting a device to your heart to help it pump blood (ventricular assist device). ?Heart transplant. Follow these instructions at home: Medicines Take pxtd-[id number] and prescription medicines only as told by your health care provider. Do not stop taking your medicines or change the amount you take. If you are having problems or side effects from your medicines, talk to your health care provider. If you are having difficulty paying for your medicines, contact a sr. social media & mobile manager or your clinic. There are many programs to assist with medicine costs. Talk to your health care provider before starting any new medicines or supplements. Make sure your health care provider and pharmacist have a list of all the medicines you are taking. Eating and drinking Avoid drinking alcohol. Eat a heart-healthy diet as told by your health care provider. This includes: ?Plenty of fruits and vegetables. ?Lean proteins. ?Low-fat dairy. ?Whole grains. ?Foods that are low in sodium. Activity Exercise regularly as told by your health care provider. Balance exercise with rest. Ask your health care provider what activities are safe for you. This includes sexual activity, exercise, and daily tasks at home or work. Lifestyle Do not use any products that contain nicotine or tobacco, such as cigarettes and e-cigarettes. If you need help quitting, ask your health care provider. Maintain a healthy weight. Ask your health care provider what weight is healthy for you. Consider joining a patient support group. This can help with emotional problems you may have, such as stress and anxiety. General instructions Talk to your health care provider about flu and pneumonia vaccines. Keep a list of medicines that you are taking. This may help in emergency situations. Keep all follow-up visits as told by your health care provider. This is important. Contact a health care provider if: You have questions about your medicines or you miss a dose. You feel anxious, depressed, or stressed. You have swelling in your feet, ankles, legs, or abdomen. You have shortness of breath during activity or exercise. You have a cough. You have a fever. You have trouble sleeping. You gain 2 3 lb (1 1.4 kg) in 24 hours or 5 lb (2.3 kg) in a week. Get help right away if: You have chest pain. You have shortness of breath while resting. You have severe fatigue. You are confused. You have severe dizziness. You have a rapid or irregular heartbeat. You have nausea or you vomit. You have a cough that is worse at night or you cannot lie flat. You have a cough that will not go away. You have severe depression or sadness. Summary When heart failure symptoms get worse, it is called heart failure exacerbation. Common causes of this condition include taking medicines incorrectly, infections, and drinking alcohol. This condition may be treated by adjusting medicines, maintaining a healthy lifestyle, or surgery. Do not stop taking your medicines or change the amount you take. If you are having problems or side effects from your medicines, talk to your health care provider. This information is not intended to replace advice given to you by your health care provider. Make sure you discuss any questions you have with your health care provider. Document Released: 07/08/2017 Document Revised: 02/06/2018 Document Reviewed: 07/08/2017 [employer] Patient Education 2020 [employer]. Follow Up Care 08/17/2024 14:17:39 With:ANSELMO FALK MD Address: [address] [place] [address] [address] [facility] [place] [address] [phone] When:5 to 7 days Comments:Follow up with cardiology within 1 week. With:Follow up with primary care provider Address: When:5 to 7 days Comments:Follow-up with your PCP within 1 week With:[facility] [phone] Address:Unknown When:1-2 days With:TIA MORRISON Address: [address] [place] [phone] Business (1) When:1-2 days [facility] 08-27-2024 Note Discharge Instructions Thank you for allowing [facility] to assist you with your healthcare needs. The following is important discharge information regarding your hospital visit. Your Care Team TIA MORRISON MD What to do next Scheduled Follow-Up Appointments Appointment Type When With Where Contact Information StatusCV OV 09/07/2024 03:45 PM EDT [facility]F 09/28/2024 11:30 AM EDT [facility] Confirmed Follow Up Appointments Follow Up with ANSELMO FALK MD When:Within 5 to 7 days Where:[address] [place] [address] [address] [facility] [place] [address]- [phone] Additional Information: Follow up with cardiology within 1 week. Follow Up with Follow up with primary care provider When:Within 5 to 7 days Additional Information: Follow-up with your PCP within 1 week Follow Up with [facility] [phone] When:Within 1-2 days Follow Up with TIA MORRISON When:Within 1-2 days Where:[address] [place] [phone] Business (1) The Following Activity and Diet Have Been Ordered for You Transfer of Care Activity - Ordered -- Activity As Tolerated, 08/27/24 14:08:00 EDT Discharge Fluid Restriction - Ordered -- 2,000 ml/day Transfer of Care Diet - Ordered -- Type of Diet: Cardiac, Sodium limit: Low, 08/27/24 14:08:00 EDT The Following Equipment Has Been Ordered for You No qualifying data available. The Following Treatments Have Been Ordered for You Discharge Labs No qualifying data available. Discharge Radiology No qualifying data available. Other Therapies No qualifying data available. Post Acute Orders Transfer of Care Admission Level of Care - Ordered -- Level of Care [facility], 08/27/24 14:38:24 EDT Transfer of Care Code Status - Ordered -- Full Code, Constant Order Transfer of Care Orders Electronically Signed By - Ordered -- 08/27/24 14:08:00 EDT, ANSELMO FALK MD Transfer of Care Prognosis - Ordered -- [place], Patient Aware: Yes Transfer of Care Rehab Potential - Ordered -- Rehab potential fair, 08/27/24 14:08:19 EDT Someone Will Contact You Regarding These Home Health Referrals No home referrals have been ordered for you. No one will call you. Allergies Bee Stings Dilantin misc non-codified allergy phenytoin unknown Medications Please ask your primary doctor or pharmacist before taking any other medication not listed, including over the counter drugs, herbal medications, vitamins and or supplements as they may interact with your home medications. What How Much When Instructions Last Dose New empagliflozin (Jardiance 10 mg oral tablet) 1 tab(s) by mouth Once a day (in the morning) Changed bumetanide (bumetanide 1 mg oral tablet) 2 tab(s) by mouth Once a day (in the evening) Changed bumetanide (bumetanide 1 mg oral tablet) 4 tab(s) by mouth Once a day (in the morning) Unchanged acetaminophen 650 Milligram by mouth Every 4 hours as needed for Pain, scale 1-3 Unchanged acetaminophen (acetaminophen 650 mg rectal suppository) 1 suppository(ies) in the rectum Every 4 hours as needed for as needed for pain Unchanged acetaminophen (acetaminophen 650 mg rectal suppository) 1 suppository(ies) in the rectum Every 4 hours as needed for for fever Unchanged aluminum hydroxide-magnesium hydroxide (aluminum hydroxide-magnesium hydroxide 200 mg-200 mg/ 5 mL oral suspension) 30 Milliliter by mouth Every 4 hours Unchanged ammonium lactate topical (ammonium lactate 12% topical cream) 1 application Topical Daily at bedtime Unchanged aspirin (aspirin 81 mg oral delayed release tablet) 1 tab(s) by mouth Every day Unchanged atorvastatin (atorvastatin 20 mg oral tablet) 1 tab(s) by mouth Every day Unchanged bisacodyl (bisacodyl 10 mg rectal enema) 1 Each in the rectum Once a day as needed for as needed for constipation Unchanged budesonide (budesonide 0.5 mg/ 2 mL inhalation suspension) 2 Milliliter by inhalation Once a day Unchanged calcium carbonate (calcium carbonate 500 mg (200 mg elemental calcium) oral tablet, chewable) 1 tab(s) Chewed Two (2) times a day Unchanged cholecalciferol (Vitamin D3 125 mcg (5000 intl units) oral capsule) 1 cap by mouth Every week Duration: 12 week(s) Unchanged EPINEPHrine (EPINEPHrine 0.3 mg injectable kit) 1 Each Intramuscular As Directed as needed for Allergic reaction Unchanged glucagon (Glucagon Emergency Kit for Low Blood Sugar 1 mg injection) 1 Milligram Intramuscular As Directed as needed for Hypoglycemia Unchanged guaiFENesin 10 Milliliter by mouth Every 4 hours as needed for for cough Unchanged ipratropium (ipratropium 500 mcg/ 2.5 mL inhalation solution) 2.5 Milliliter by inhalation Four (4) times a day Duration: 30 Days Unchanged levothyroxine (levothyroxine 100 mcg (0.1 mg) oral tablet) 1 tab(s) by mouth Once a day Unchanged magnesium hydroxide (Milk of Magnesia 8% oral suspension) 30 Milliliter by mouth Daily at bedtime as needed for as needed for constipation Unchanged multivitamin with minerals (Therapeutic Multiple Vitamins with Minerals, Zinc and Elderberry oral tablet, chewable) 1 tab Chewed Once a day Unchanged senna (Senna 8.6 mg oral tablet) 1 tab(s) by mouth Daily at bedtime as needed for as needed for constipation Unchanged sodium biphosphate-sodium phosphate (Fleet Enema) 1 Each in the rectum Once a day Unchanged spironolactone (Aldactone 25 mg oral tablet) 1 tab(s) by mouth Once a day with a meal Unchanged tirzepatide (tirzepatide 5 mg/ 0.5 mL subcutaneous solution) 5 Milligram Subcutaneous Every week rotate injection sites Please take this list to your next doctor s visit. Bring all medications you take, including over the counter medications, herbals and other supplements with you to your doctor s visit. Patients and families are reminded to discard old lists and to update any records with all medication providers or retail pharmacies. Medication Leaflets empagliflozin (LEONEL horner) Jardiance What is the most important information I should know about empagliflozin? Call your doctor at once if you have signs of a serious side effect, such as stomach pain, vomiting, tiredness, or trouble breathing. Tell your doctor if you are sick with vomiting or diarrhea, or if you eat or drink less than usual. Empagliflozin can cause serious infections around the penis or vagina. Get medical help right away if you have burning, itching, odor, discharge, pain, tenderness, redness or swelling of the genital or rectal area, fever, or if you don't feel well. What is empagliflozin? Empagliflozin is used together with diet and exercise to lower blood sugar levels in adults and children at least 10 years old with type 2 diabetes. Empagliflozin is also used to lower the risk of from heart attack, stroke, or heart failure in adults with type 2 diabetes who also have heart disease. Empagliflozin is also used in adults to lower the risk of dying or needing to be in a hospital for heart failure when the heart cannot pump blood properly. Empagliflozin is not for treating type 1 diabetes. Empagliflozin may also be used for purposes not listed in this medication guide. What should I discuss with my healthcare provider before taking empagliflozin? You should not use empagliflozin if you are allergic to it, or if you have: severe kidney disease (or if you are on dialysis). Tell your doctor if you have or have ever had: a bladder infection or urination problems; a genital infection (penis or vagina); problems with your pancreas, including surgery; alcoholism, or if you currently drink large amounts of alcohol; if you are on a low salt diet, you are eating less, or there is a change in your diet; if you are 65 or older; or liver or kidney disease. Follow your doctor's instructions about using this medicine if you are or you become . Controlling diabetes is very important during . You should not use empagliflozin during the second or third trimester of . Do not breastfeed. How should I take empagliflozin? Follow all directions on your prescription label and read all medication guides or instruction sheets. Your doctor may occasionally change your dose. Use the medicine exactly as directed. Take empagliflozin once a day in the morning, with or without food. Your blood sugar will need to be checked often, and you may also need to test the level of ketones in your urine. Empagliflozin can cause life-threatening ketoacidosis (too much acid in the blood). Even if your blood sugar is normal, contact your doctor if a urine test shows that you have high ketones in the urine. Blood sugar can be affected by stress, illness, surgery, exercise, alcohol use, or skipping meals. Low blood sugar (hypoglycemia) can make you feel very hungry, dizzy, irritable, or shaky. To quickly treat hypoglycemia, eat or drink hard candy, crackers, raisins, fruit juice, or non-diet soda. Your doctor may prescribe glucagon injection in case of severe hypoglycemia. You may get dehydrated during prolonged illness. Call your doctor if you are sick with vomiting or diarrhea. This medicine can affect the results of certain medical tests. Tell any doctor who treats you that you are using empagliflozin. Your treatment may also include diet, exercise, weight control, and special medical care. Tell your doctor if you have a planned surgery. Store at room temperature away from moisture and heat. What happens if I miss a dose? Take the medicine as soon as you can, but skip the missed dose if it is almost time for your next dose. Do not take two doses at one time. What happens if I overdose? Seek emergency medical attention or call the Poison Help line at . What should I avoid while taking empagliflozin? Avoid drinking alcohol. Avoid getting up too fast from a sitting or lying position, or you may feel dizzy. What are the possible side effects of empagliflozin? Get emergency medical help if you have signs of an allergic reaction: hives, difficult breathing, swelling of your face, lips, tongue, or throat. Seek medical attention right away if you have signs of a serious genital infection (penis or vagina): burning, itching, odor, discharge, pain, tenderness, redness or swelling of the genital or rectal area, fever, not feeling well. These symptoms may get worse quickly. Call your doctor at once if you have: a light-headed feeling, like you might pass out; low blood sugar--headache, hunger, weakness, sweating, confusion, irritability, dizziness, fast heart rate, or feeling jittery; dehydration--dizziness, confusion, feeling very thirsty, less urination; ketoacidosis (too much acid in the blood)--nausea, vomiting, stomach pain, confusion, unusual drowsiness, or trouble breathing; or signs of a bladder infection--pain or burning when you urinate, blood in your urine, pain in pelvis or back. Common side effects may include: a bladder infection; or yeast infection in women (vaginal itching or discharge). This is not a complete list of side effects and others may occur. Call your doctor for medical advice about side effects. You may report side effects to FDA at 0-133-SGL-7200. What other drugs will affect empagliflozin? Tell your doctor about all your other medicines, especially: insulin, or other oral diabetes medicine; or a diuretic or 'water pill.' This list is not complete. Other drugs may affect empagliflozin, including prescription and gsuv-fnt-iorrlmv medicines, vitamins, and herbal products. Not all possible drug interactions are listed here. Where can I get more information? Your doctor or pharmacist can provide more information about empagliflozin. Remember, keep this and all other medicines out of the reach of children, never share your medicines with others, and use this medication only for the indication prescribed. Every effort has been made to ensure that the information provided by [employer]. ('[employer]') is accurate, up-to-date, and complete, but no guarantee is made to that effect. Drug information contained herein may be time sensitive. [employer] information has been compiled for use by healthcare practitioners and consumers in the [place] and therefore [employer] does not warrant that uses outside of the [place] are appropriate, unless specifically indicated otherwise. [facility] drug information does not endorse drugs, diagnose patients or recommend therapy. [facility] drug information is an informational resource designed to assist licensed healthcare practitioners in caring for their patients and/or to serve consumers viewing this service as a supplement to, and not a substitute for, the expertise, skill, knowledge and judgment of healthcare practitioners. The absence of a warning for a given drug or drug combination in no way should be construed to indicate that the drug or drug combination is safe, effective or appropriate for any given patient. [employer] does not assume any responsibility for any aspect of healthcare administered with the aid of information [employer] provides. The information contained herein is not intended to cover all possible uses, directions, precautions, warnings, drug interactions, allergic reactions, or adverse effects. If you have questions about the drugs you are taking, check with your doctor, nurse or pharmacist. Copyright 1477-4353 [employer]. Version: 6.01. Revision Date: 11/04/2022. bumetanide (oral/injection) (byoo MET a nide) What is the most important information I should know about bumetanide? You should not use bumetanide if you are unable to urinate, if you have severe kidney or liver disease, if you are severely dehydrated, or if you have an electrolyte imbalance (low potassium or magnesium). What is bumetanide? Bumetanide is diuretic that is used to treat fluid retention (edema) in people with congestive heart failure, liver disease, or a kidney disorder such as nephrotic syndrome. Bumetanide may also be used for purposes not listed in this medication guide. What should I discuss with my healthcare provider before using bumetanide? You should not use bumetanide if you are allergic to it, or if you have: severe kidney disease or are unable to urinate; severe liver disease or cirrhosis; severe dehydration; or an electrolyte imbalance (such as low levels of potassium or magnesium in your blood). Tell your doctor if you have ever had: a heart rhythm disorder; liver disease; kidney disease (or if you are on dialysis); gout; an allergy to sulfa drugs; or if you are on a low-salt diet. Tell your doctor if you are or breast-feeding. Bumetanide is not approved for use by anyone younger than 18 years old. How should I take bumetanide? Follow all directions on your prescription label and read all medication guides or instruction sheets. Your doctor may occasionally change your dose. Use the medicine exactly as directed. Bumetanide injection is injected into a muscle, or given as an infusion into a vein. A healthcare provider will give you this injection if you are unable to take the medicine by mouth. Bumetanide will make you urinate more often and you may get dehydrated easily. Follow your doctor's instructions about taking potassium supplements or getting enough salt and potassium in your diet. Call your doctor if you are sick with vomiting or diarrhea, or if you are sweating more than usual. You can easily become dehydrated while taking bumetanide. This can lead to very low blood pressure, a serious electrolyte imbalance, or kidney failure. You will need frequent medical tests. Store at room temperature away from heat, moisture, and light. What happens if I miss a dose? Bumetanide is sometimes used only once, so you may not be on a dosing schedule. If you are on a dosing schedule, take the medicine as soon as you can, but skip the missed dose if it is almost time for your next dose. Do not take two doses at one time. What happens if I overdose? Seek emergency medical attention or call the Poison Help line at . Overdose symptoms may include extreme dizziness or weakness, confusion, loss of appetite, stomach cramps, and vomiting. What should I avoid while taking bumetanide? Avoid becoming dehydrated. Follow your doctor's instructions about the type and amount of liquids you should drink while you are taking bumetanide. What are the possible side effects of bumetanide Get emergency medical help if you have signs of an allergic reaction: hives; difficult breathing; swelling of your face, lips, tongue, or throat. Call your doctor at once if you have: hearing problems; confusion, hallucinations, problems with thought or memory; trouble speaking or understanding what is said to you; unusual weakness; twitching, or a seizure; weak or shallow breathing; easy bruising, unusual bleeding, purple or red spots under your skin; low magnesium--dizziness, irregular heartbeats, feeling jittery, muscle cramps, muscle spasms, cough or choking feeling; low potassium level--leg cramps, constipation, irregular heartbeats, fluttering in your chest, increased thirst or urination, numbness or tingling, muscle weakness or limp feeling; or dehydration symptoms--feeling very thirsty or hot, being unable to urinate, heavy sweating, or hot and dry skin. Common side effects may include: muscle cramps; dizziness; low blood presure; nausea; or headache. This is not a complete list of side effects and others may occur. Call your doctor for medical advice about side effects. You may report side effects to FDA at 5-150-ZPD-7584. What other drugs will affect bumetanide? Bumetanide can harm your kidneys, especially if you also use certain medicines for infections, cancer, osteoporosis, organ transplant rejection, bowel disorders, high blood pressure, or pain or arthritis (including Advil, Motrin, and Aleve). Tell your doctor about all your other medicines, especially: lithium; digoxin; probenecid; indomethacin; blood pressure medication; or any other diuretic. This list is not complete. Other drugs may affect bumetanide, including prescription and gabw-sga-beckhgp medicines, vitamins, and herbal products. Not all possible drug interactions are listed here. Where can I get more information? Your pharmacist can provide more information about bumetanide. Remember, keep this and all other medicines out of the reach of children, never share your medicines with others, and use this medication only for the indication prescribed. Every effort has been made to ensure that the information provided by [employer]. ('[employer]') is accurate, up-to-date, and complete, but no guarantee is made to that effect. Drug information contained herein may be time sensitive. [employer] information has been compiled for use by healthcare practitioners and consumers in the [place] and therefore [employer] does not warrant that uses outside of the [place] are appropriate, unless specifically indicated otherwise. [facility] drug information does not endorse drugs, diagnose patients or recommend therapy. [facility] drug information is an informational resource designed to assist licensed healthcare practitioners in caring for their patients and/or to serve consumers viewing this service as a supplement to, and not a substitute for, the expertise, skill, knowledge and judgment of healthcare practitioners. The absence of a warning for a given drug or drug combination in no way should be construed to indicate that the drug or drug combination is safe, effective or appropriate for any given patient. [employer] does not assume any responsibility for any aspect of healthcare administered with the aid of information [employer] provides. The information contained herein is not intended to cover all possible uses, directions, precautions, warnings, drug interactions, allergic reactions, or adverse effects. If you have questions about the drugs you are taking, check with your doctor, nurse or pharmacist. Copyright 8546-7381 [employer]. Version: 9.. Revision Date: 10/10/2022. Education Materials Heart Failure Exacerbation Heart failure is a condition in which the heart does not fill up with enough blood, and therefore does not pump enough blood and oxygen to the body. When this happens, parts of the body do not get the blood and oxygen they need to function properly. This can cause symptoms such as breathing problems, fatigue, swelling, and confusion. Heart failure exacerbation refers to heart failure symptoms that get worse. The symptoms may get worse suddenly or develop slowly over time. Heart failure exacerbation is a serious medical problem that should be treated right away. What are the causes? A heart failure exacerbation can be triggered by: Not taking your heart failure medicines correctly. Infections. Eating an unhealthy diet or a diet that is high in salt (sodium). Drinking too much fluid. Drinking alcohol. Taking illegal drugs, such as cocaine or methamphetamine. Not exercising. Other causes include: Other heart conditions such as an irregular heartbeat (arrhythmia). Anemia. Other medical problems, such as kidney failure. Sometimes the cause of the exacerbation is not known. What are the signs or symptoms? When heart failure symptoms suddenly or slowly get worse, this may be a sign of heart failure exacerbation. Symptoms of heart failure include: Breathing problems or shortness of breath. Chronic coughing or wheezing. Fatigue. Nausea or lack of appetite. Feeling light-headed. Confusion or memory loss. Increased heart rate or irregular heartbeat. Buildup of fluid in the legs, ankles, feet, or abdomen. Difficulty breathing when lying down. How is this diagnosed? This condition is diagnosed based on: Your symptoms and medical history. A physical exam. You may also have tests, including: Electrocardiogram (ECG). This test measures the electrical activity of your heart. Echocardiogram. This test uses sound waves to take a picture of your heart to see how well it works. Blood tests. Imaging tests, such as: ? Chest X-ray. ? MRI. ? Ultrasound. Stress test. This test examines how well your heart functions when you exercise. Your heart is monitored while you exercise on a treadmill or exercise bike. If you cannot exercise, medicines may be used to increase your heartbeat in place of exercise. Cardiac catheterization. During this test, a thin, flexible tube (catheter) is inserted into a blood vessel and threaded up to your heart. This test allows your health care provider to check the arteries that lead to your heart (coronary arteries). Right heart catheterization. During this test, the pressure in your heart is measured. How is this treated? This condition may be treated by: Adjusting your heart medicines. Maintaining a healthy lifestyle. This includes: ? Eating a heart-healthy diet that is low in sodium. ? Not using any products that contain nicotine or tobacco, such as cigarettes and e-cigarettes. ? Regular exercise. ? Monitoring your fluid intake. ? Monitoring your weight and reporting changes to your health care provider. Treating sleep apnea, if you have this condition. Surgery. This may include: ? Implanting a device that helps both sides of your heart contract at the same time (cardiac resynchronization therapy device). This can help with heart function and relieve heart failure symptoms. ? Implanting a device that can correct heart rhythm problems (implantable cardioverter defibrillator). ? Connecting a device to your heart to help it pump blood (ventricular assist device). ? Heart transplant. Follow these instructions at home: Medicines Take xarw-dki-xavnggb and prescription medicines only as told by your health care provider. Do not stop taking your medicines or change the amount you take. If you are having problems or side effects from your medicines, talk to your health care provider. If you are having difficulty paying for your medicines, contact a sr. social media & mobile manager or your clinic. There are many programs to assist with medicine costs. Talk to your health care provider before starting any new medicines or supplements. Make sure your health care provider and pharmacist have a list of all the medicines you are taking. Eating and drinking Avoid drinking alcohol. Eat a heart-healthy diet as told by your health care provider. This includes: ? Plenty of fruits and vegetables. ? Lean proteins. ? Low-fat dairy. ? Whole grains. ? Foods that are low in sodium. Activity Exercise regularly as told by your health care provider. Balance exercise with rest. Ask your health care provider what activities are safe for you. This includes sexual activity, exercise, and daily tasks at home or work. Lifestyle Do not use any products that contain nicotine or tobacco, such as cigarettes and e-cigarettes. If you need help quitting, ask your health care provider. Maintain a healthy weight. Ask your health care provider what weight is healthy for you. Consider joining a patient support group. This can help with emotional problems you may have, such as stress and anxiety. General instructions Talk to your health care provider about flu and pneumonia vaccines. Keep a list of medicines that you are taking. This may help in emergency situations. Keep all follow-up visits as told by your health care provider. This is important. Contact a health care provider if: You have questions about your medicines or you miss a dose. You feel anxious, depressed, or stressed. You have swelling in your feet, ankles, legs, or abdomen. You have shortness of breath during activity or exercise. You have a cough. You have a fever. You have trouble sleeping. You gain 2 3 lb (1 1.4 kg) in 24 hours or 5 lb (2.3 kg) in a week. Get help right away if: You have chest pain. You have shortness of breath while resting. You have severe fatigue. You are confused. You have severe dizziness. You have a rapid or irregular heartbeat. You have nausea or you vomit. You have a cough that is worse at night or you cannot lie flat. You have a cough that will not go away. You have severe depression or sadness. Summary When heart failure symptoms get worse, it is called heart failure exacerbation. Common causes of this condition include taking medicines incorrectly, infections, and drinking alcohol. This condition may be treated by adjusting medicines, maintaining a healthy lifestyle, or surgery. Do not stop taking your medicines or change the amount you take. If you are having problems or side effects from your medicines, talk to your health care provider. This information is not intended to replace advice given to you by your health care provider. Make sure you discuss any questions you have with your health care provider. Document Released: 07/08/2017 Document Revised: 02/06/2018 Document Reviewed: 07/08/2017 [employer] Patient Education 2020 [employer]. Additional Information VACCINATE! IT SAVES LIVES! Members of the community who have not yet received the COVID-19 vaccine and would like to receive it can visit one of [facility] vaccine clinics. There are many vaccine clinic locations within the [facility]. For locations and available times, please visit [email or web address].o hio.[email or web address] It is important to note that some COVID mobile vaccine clinics are held outdoors and may be canceled in rainy or stormy conditions. To learn more about pediatric vaccinations (ages 5-11), we invite you to visit the [facility] webpage. [email or web address] [email or web address] To learn more about the COVID-19 vaccine, we invite you to visit the CDC website for a list of frequently asked questions.https://www.cdc.gov/co ronavirus/2019-ncov/vaccines/faq .html [facility] Patient Portal Access Instructions: Stay connected with your healthcare team and access your personal medical information anytime with the [facility] Patient Portal. Please follow the directions below to create your [facility] [facility] account: 1.Access the email account you provided upon registration to the hospital/physician office.2.Look for an invitation email from [facility].3.Open the email and access the invitation link: [facility]4.Fill in the required perez to create your account. To access your account, visit [email or web address]. Click the blue button labeled Access Patient [...] you will allow to register on the [facility] Patient Portal for access to your information. You can also access the [facility] Patient Portal on the [place] [facility] cristian. Simply click on Patient Portal and then log into your account. If you would like to receive a full copy of your medical records, please contact the [facility] Medical Records Department by calling [phone], Friday through Friday between 8 a.m. and [...] Call your local pharmacy or go to http://bit.ly/9A5Js4h to find one close to you.3.Make use of household items: Use cat litter or old coffee grounds to dispose medications if other options are not available. Mix your drugs with these household products, seal them in an airtight container and throw it into the garbage. Call [facility]: [phone] to be sure your drugs can be [...] COPY. Signatures Patient Education Materials Heart Failure Exacerbation Medication Leaflets Nikki Parra My discharge plan and instructions have been reviewed and explained to me and I,SIA ABDUL understand my current condition and have read and understand these discharge instructions. I have received a written copy of the plan/instructions. If I have questions, I am aware that I should contact my doctor. Patient/Financial Services Education Consultant Signature: Date/Time: Relationship to Patient: Witness Name/Signature: Date/Time: [facility] 08-27-2024 Note Discharge Instructions Thank you for allowing [facility] to assist you with your healthcare needs. The following is important discharge information regarding your hospital visit. Your Care Team TIA MORRISON MD What to do next Scheduled Follow-Up Appointments Appointment Type When With Where Contact Information StatusCV OV 09/07/2024 03:45 PM EDT M[facility]ELINO FALK [facility] CHF 09/28/2024 11:30 AM EDT [facility] Confirmed Follow Up Appointments Follow Up with ANSELMO FALK MD When:Within 5 to 7 days [facility] [facility] [address] [place] [address] [phone] Additional Information: Follow up with cardiology within 1 week. Follow Up with Follow up with primary care provider When:Within 5 to 7 days Additional Information: Follow-up with your PCP within 1 week Follow Up with [facility] [phone] When:Within 1-2 days Follow Up with TIA MORRISON When:Within 1-2 days Where:[address] [place] [address]- [phone] Business (1) The Following Activity and Diet Have Been Ordered for You Transfer of Care Activity - Ordered -- Activity As Tolerated, 08/27/24 14:08:00 EDT Discharge Fluid Restriction - Ordered -- 2,000 ml/day Transfer of Care Diet - Ordered -- Type of Diet: Cardiac, Sodium limit: Low, 08/27/24 14:08:00 EDT The Following Equipment Has Been Ordered for You No qualifying data available. The Following Treatments Have Been Ordered for You Discharge Labs No qualifying data available. Discharge Radiology No qualifying data available. Other Therapies No qualifying data available. Post Acute Orders Transfer of Care Admission Level of Care - Ordered -- Level of Care [facility], 08/27/24 14:38:24 EDT Transfer of Care Code Status - Ordered -- Full Code, Constant Order Transfer of Care Orders Electronically Signed By - Ordered -- 08/27/24 14:08:00 EDTDILEEP SAADAT MD Transfer of Care Prognosis - Ordered -- Fair, Patient Aware: Yes Transfer of Care Rehab Potential - Ordered -- Rehab potential fair, 08/27/24 14:08:19 EDT Someone Will Contact You Regarding These Home Health Referrals No home referrals have been ordered for you. No one will call you. Allergies Bee Stings Dilantin misc non-codified allergy phenytoin unknown Medications Please ask your primary doctor or pharmacist before taking any other medication not listed, including over the counter drugs, herbal medications, vitamins and or supplements as they may interact with your home medications. What How Much When Instructions Last Dose New empagliflozin (Jardiance 10 mg oral tablet) 1 tab(s) by mouth Once a day (in the morning) Changed bumetanide (bumetanide 1 mg oral tablet) 2 tab(s) by mouth Once a day (in the evening) Changed bumetanide (bumetanide 1 mg oral tablet) 4 tab(s) by mouth Once a day (in the morning) Unchanged acetaminophen 650 Milligram by mouth Every 4 hours as needed for Pain, scale 1-3 Unchanged acetaminophen (acetaminophen 650 mg rectal suppository) 1 suppository(ies) in the rectum Every 4 hours as needed for as needed for pain Unchanged acetaminophen (acetaminophen 650 mg rectal suppository) 1 suppository(ies) in the rectum Every 4 hours as needed for for fever Unchanged aluminum hydroxide-magnesium hydroxide (aluminum hydroxide-magnesium hydroxide 200 mg-200 mg/ 5 mL oral suspension) 30 Milliliter by mouth Every 4 hours Unchanged ammonium lactate topical (ammonium lactate 12% topical cream) 1 application Topical Daily at bedtime Unchanged aspirin (aspirin 81 mg oral delayed release tablet) 1 tab(s) by mouth Every day Unchanged atorvastatin (atorvastatin 20 mg oral tablet) 1 tab(s) by mouth Every day Unchanged bisacodyl (bisacodyl 10 mg rectal enema) 1 Each in the rectum Once a day as needed for as needed for constipation Unchanged budesonide (budesonide 0.5 mg/ 2 mL inhalation suspension) 2 Milliliter by inhalation Once a day Unchanged calcium carbonate (calcium carbonate 500 mg (200 mg elemental calcium) oral tablet, chewable) 1 tab(s) Chewed Two (2) times a day Unchanged cholecalciferol (Vitamin D3 125 mcg (5000 intl units) oral capsule) 1 cap by mouth Every week Duration: 12 week(s) Unchanged EPINEPHrine (EPINEPHrine 0.3 mg injectable kit) 1 Each Intramuscular As Directed as needed for Allergic reaction Unchanged glucagon (Glucagon Emergency Kit for Low Blood Sugar 1 mg injection) 1 Milligram Intramuscular As Directed as needed for Hypoglycemia Unchanged guaiFENesin 10 Milliliter by mouth Every 4 hours as needed for for cough Unchanged ipratropium (ipratropium 500 mcg/ 2.5 mL inhalation solution) 2.5 Milliliter by inhalation Four (4) times a day Duration: 30 Days Unchanged levothyroxine (levothyroxine 100 mcg (0.1 mg) oral tablet) 1 tab(s) by mouth Once a day Unchanged magnesium hydroxide (Milk of Magnesia 8% oral suspension) 30 Milliliter by mouth Daily at bedtime as needed for as needed for constipation Unchanged multivitamin with minerals (Therapeutic Multiple Vitamins with Minerals, Zinc and Elderberry oral tablet, chewable) 1 tab Chewed Once a day Unchanged senna (Senna 8.6 mg oral tablet) 1 tab(s) by mouth Daily at bedtime as needed for as needed for constipation Unchanged sodium biphosphate-sodium phosphate (Fleet Enema) 1 Each in the rectum Once a day Unchanged spironolactone (Aldactone 25 mg oral tablet) 1 tab(s) by mouth Once a day with a meal Unchanged tirzepatide (tirzepatide 5 mg/ 0.5 mL subcutaneous solution) 5 Milligram Subcutaneous Every week rotate injection sites Please take this list to your next doctor s visit. Bring all medications you take, including over the counter medications, herbals and other supplements with you to your doctor s visit. Patients and families are reminded to discard old lists and to update any records with all medication providers or retail pharmacies. Medication Leaflets empagliflozin (LEONEL horner) Jardiance What is the most important information I should know about empagliflozin? Call your doctor at once if you have signs of a serious side effect, such as stomach pain, vomiting, tiredness, or trouble breathing. Tell your doctor if you are sick with vomiting or diarrhea, or if you eat or drink less than usual. Empagliflozin can cause serious infections around the penis or vagina. Get medical help right away if you have burning, itching, odor, discharge, pain, tenderness, redness or swelling of the genital or rectal area, fever, or if you don't feel well. What is empagliflozin? Empagliflozin is used together with diet and exercise to lower blood sugar levels in adults and children at least 10 years old with type 2 diabetes. Empagliflozin is also used to lower the risk of from heart attack, stroke, or heart failure in adults with type 2 diabetes who also have heart disease. Empagliflozin is also used in adults to lower the risk of dying or needing to be in a hospital for heart failure when the heart cannot pump blood properly. Empagliflozin is not for treating type 1 diabetes. Empagliflozin may also be used for purposes not listed in this medication guide. What should I discuss with my healthcare provider before taking empagliflozin? You should not use empagliflozin if you are allergic to it, or if you have: severe kidney disease (or if you are on dialysis). Tell your doctor if you have or have ever had: a bladder infection or urination problems; a genital infection (penis or vagina); problems with your pancreas, including surgery; alcoholism, or if you currently drink large amounts of alcohol; if you are on a low salt diet, you are eating less, or there is a change in your diet; if you are 65 or older; or liver or kidney disease. Follow your doctor's instructions about using this medicine if you are or you become . Controlling diabetes is very important during . You should not use empagliflozin during the second or third trimester of . Do not breastfeed. How should I take empagliflozin? Follow all directions on your prescription label and read all medication guides or instruction sheets. Your doctor may occasionally change your dose. Use the medicine exactly as directed. Take empagliflozin once a day in the morning, with or without food. Your blood sugar will need to be checked often, and you may also need to test the level of ketones in your urine. Empagliflozin can cause life-threatening ketoacidosis (too much acid in the blood). Even if your blood sugar is normal, contact your doctor if a urine test shows that you have high ketones in the urine. Blood sugar can be affected by stress, illness, surgery, exercise, alcohol use, or skipping meals. Low blood sugar (hypoglycemia) can make you feel very hungry, dizzy, irritable, or shaky. To quickly treat hypoglycemia, eat or drink hard candy, crackers, raisins, fruit juice, or non-diet soda. Your doctor may prescribe glucagon injection in case of severe hypoglycemia. You may get dehydrated during prolonged illness. Call your doctor if you are sick with vomiting or diarrhea. This medicine can affect the results of certain medical tests. Tell any doctor who treats you that you are using empagliflozin. Your treatment may also include diet, exercise, weight control, and special medical care. Tell your doctor if you have a planned surgery. Store at room temperature away from moisture and heat. What happens if I miss a dose? Take the medicine as soon as you can, but skip the missed dose if it is almost time for your next dose. Do not take two doses at one time. What happens if I overdose? Seek emergency medical attention or call the Poison Help line at . What should I avoid while taking empagliflozin? Avoid drinking alcohol. Avoid getting up too fast from a sitting or lying position, or you may feel dizzy. What are the possible side effects of empagliflozin? Get emergency medical help if you have signs of an allergic reaction: hives, difficult breathing, swelling of your face, lips, tongue, or throat. Seek medical attention right away if you have signs of a serious genital infection (penis or vagina): burning, itching, odor, discharge, pain, tenderness, redness or swelling of the genital or rectal area, fever, not feeling well. These symptoms may get worse quickly. Call your doctor at once if you have: a light-headed feeling, like you might pass out; low blood sugar--headache, hunger, weakness, sweating, confusion, irritability, dizziness, fast heart rate, or feeling jittery; dehydration--dizziness, confusion, feeling very thirsty, less urination; ketoacidosis (too much acid in the blood)--nausea, vomiting, stomach pain, confusion, unusual drowsiness, or trouble breathing; or signs of a bladder infection--pain or burning when you urinate, blood in your urine, pain in pelvis or back. Common side effects may include: a bladder infection; or yeast infection in women (vaginal itching or discharge). This is not a complete list of side effects and others may occur. Call your doctor for medical advice about side effects. You may report side effects to FDA at 4-467-PLR-9115. What other drugs will affect empagliflozin? Tell your doctor about all your other medicines, especially: insulin, or other oral diabetes medicine; or a diuretic or 'water pill.' This list is not complete. Other drugs may affect empagliflozin, including prescription and fsbi-qlf-ljxejab medicines, vitamins, and herbal products. Not all possible drug interactions are listed here. Where can I get more information? Your doctor or pharmacist can provide more information about empagliflozin. Remember, keep this and all other medicines out of the reach of children, never share your medicines with others, and use this medication only for the indication prescribed. Every effort has been made to ensure that the information provided by [employer]. ('[employer]') is accurate, up-to-date, and complete, but no guarantee is made to that effect. Drug information contained herein may be time sensitive. [employer] information has been compiled for use by healthcare practitioners and consumers in the [place] and therefore [employer] does not warrant that uses outside of the [place] are appropriate, unless specifically indicated otherwise. [facility] drug information does not endorse drugs, diagnose patients or recommend therapy. [facility] drug information is an informational resource designed to assist licensed healthcare practitioners in caring for their patients and/or to serve consumers viewing this service as a supplement to, and not a substitute for, the expertise, skill, knowledge and judgment of healthcare practitioners. The absence of a warning for a given drug or drug combination in no way should be construed to indicate that the drug or drug combination is safe, effective or appropriate for any given patient. [employer] does not assume any responsibility for any aspect of healthcare administered with the aid of information [employer] provides. The information contained herein is not intended to cover all possible uses, directions, precautions, warnings, drug interactions, allergic reactions, or adverse effects. If you have questions about the drugs you are taking, check with your doctor, nurse or pharmacist. Copyright 6185-5637 [employer]. Version: 6.01. Revision Date: 11/04/2022. bumetanide (oral/injection) (chica oliveira) What is the most important information I should know about bumetanide? You should not use bumetanide if you are unable to urinate, if you have severe kidney or liver disease, if you are severely dehydrated, or if you have an electrolyte imbalance (low potassium or magnesium). What is bumetanide? Bumetanide is diuretic that is used to treat fluid retention (edema) in people with congestive heart failure, liver disease, or a kidney disorder such as nephrotic syndrome. Bumetanide may also be used for purposes not listed in this medication guide. What should I discuss with my healthcare provider before using bumetanide? You should not use bumetanide if you are allergic to it, or if you have: severe kidney disease or are unable to urinate; severe liver disease or cirrhosis; severe dehydration; or an electrolyte imbalance (such as low levels of potassium or magnesium in your blood). Tell your doctor if you have ever had: a heart rhythm disorder; liver disease; kidney disease (or if you are on dialysis); gout; an allergy to sulfa drugs; or if you are on a low-salt diet. Tell your doctor if you are or breast-feeding. Bumetanide is not approved for use by anyone younger than 18 years old. How should I take bumetanide? Follow all directions on your prescription label and read all medication guides or instruction sheets. Your doctor may occasionally change your dose. Use the medicine exactly as directed. Bumetanide injection is injected into a muscle, or given as an infusion into a vein. A healthcare provider will give you this injection if you are unable to take the medicine by mouth. Bumetanide will make you urinate more often and you may get dehydrated easily. Follow your doctor's instructions about taking potassium supplements or getting enough salt and potassium in your diet. Call your doctor if you are sick with vomiting or diarrhea, or if you are sweating more than usual. You can easily become dehydrated while taking bumetanide. This can lead to very low blood pressure, a serious electrolyte imbalance, or kidney failure. You will need frequent medical tests. Store at room temperature away from heat, moisture, and light. What happens if I miss a dose? Bumetanide is sometimes used only once, so you may not be on a dosing schedule. If you are on a dosing schedule, take the medicine as soon as you can, but skip the missed dose if it is almost time for your next dose. Do not take two doses at one time. What happens if I overdose? Seek emergency medical attention or call the Poison Help line at . Overdose symptoms may include extreme dizziness or weakness, confusion, loss of appetite, stomach cramps, and vomiting. What should I avoid while taking bumetanide? Avoid becoming dehydrated. Follow your doctor's instructions about the type and amount of liquids you should drink while you are taking bumetanide. What are the possible side effects of bumetanide Get emergency medical help if you have signs of an allergic reaction: hives; difficult breathing; swelling of your face, lips, tongue, or throat. Call your doctor at once if you have: hearing problems; confusion, hallucinations, problems with thought or memory; trouble speaking or understanding what is said to you; unusual weakness; twitching, or a seizure; weak or shallow breathing; easy bruising, unusual bleeding, purple or red spots under your skin; low magnesium--dizziness, irregular heartbeats, feeling jittery, muscle cramps, muscle spasms, cough or choking feeling; low potassium level--leg cramps, constipation, irregular heartbeats, fluttering in your chest, increased thirst or urination, numbness or tingling, muscle weakness or limp feeling; or dehydration symptoms--feeling very thirsty or hot, being unable to urinate, heavy sweating, or hot and dry skin. Common side effects may include: muscle cramps; dizziness; low blood presure; nausea; or headache. This is not a complete list of side effects and others may occur. Call your doctor for medical advice about side effects. You may report side effects to FDA at 4-333-TXH-[phone]. What other drugs will affect bumetanide? Bumetanide can harm your kidneys, especially if you also use certain medicines for infections, cancer, osteoporosis, organ transplant rejection, bowel disorders, high blood pressure, or pain or arthritis (including Advil, Motrin, and Aleve). Tell your doctor about all your other medicines, especially: lithium; digoxin; probenecid; indomethacin; blood pressure medication; or any other diuretic. This list is not complete. Other drugs may affect bumetanide, including prescription and xkks-sfd-cprautm medicines, vitamins, and herbal products. Not all possible drug interactions are listed here. Where can I get more information? Your pharmacist can provide more information about bumetanide. Remember, keep this and all other medicines out of the reach of children, never share your medicines with others, and use this medication only for the indication prescribed. Every effort has been made to ensure that the information provided by [employer]. ('[employer]') is accurate, up-to-date, and complete, but no guarantee is made to that effect. Drug information contained herein may be time sensitive. [employer] information has been compiled for use by healthcare practitioners and consumers in the [place] and therefore [employer] does not warrant that uses outside of the [place] are appropriate, unless specifically indicated otherwise. [facility] drug information does not endorse drugs, diagnose patients or recommend therapy. [employer] drug information is an informational resource designed to assist licensed healthcare practitioners in caring for their patients and/or to serve consumers viewing this service as a supplement to, and not a substitute for, the expertise, skill, knowledge and judgment of healthcare practitioners. The absence of a warning for a given drug or drug combination in no way should be construed to indicate that the drug or drug combination is safe, effective or appropriate for any given patient. [employer] does not assume any responsibility for any aspect of healthcare administered with the aid of information [employer] provides. The information contained herein is not intended to cover all possible uses, directions, precautions, warnings, drug interactions, allergic reactions, or adverse effects. If you have questions about the drugs you are taking, check with your doctor, nurse or pharmacist. Copyright 1537-5352 [employer]. Version: 9.01. Revision Date: 10/10/2022. Education Materials Heart Failure Exacerbation Heart failure is a condition in which the heart does not fill up with enough blood, and therefore does not pump enough blood and oxygen to the body. When this happens, parts of the body do not get the blood and oxygen they need to function properly. This can cause symptoms such as breathing problems, fatigue, swelling, and confusion. Heart failure exacerbation refers to heart failure symptoms that get worse. The symptoms may get worse suddenly or develop slowly over time. Heart failure exacerbation is a serious medical problem that should be treated right away. What are the causes? A heart failure exacerbation can be triggered by: Not taking your heart failure medicines correctly. Infections. Eating an unhealthy diet or a diet that is high in salt (sodium). Drinking too much fluid. Drinking alcohol. Taking illegal drugs, such as cocaine or methamphetamine. Not exercising. Other causes include: Other heart conditions such as an irregular heartbeat (arrhythmia). Anemia. Other medical problems, such as kidney failure. Sometimes the cause of the exacerbation is not known. What are the signs or symptoms? When heart failure symptoms suddenly or slowly get worse, this may be a sign of heart failure exacerbation. Symptoms of heart failure include: Breathing problems or shortness of breath. Chronic coughing or wheezing. Fatigue. Nausea or lack of appetite. Feeling light-headed. Confusion or memory loss. Increased heart rate or irregular heartbeat. Buildup of fluid in the legs, ankles, feet, or abdomen. Difficulty breathing when lying down. How is this diagnosed? This condition is diagnosed based on: Your symptoms and medical history. A physical exam. You may also have tests, including: Electrocardiogram (ECG). This test measures the electrical activity of your heart. Echocardiogram. This test uses sound waves to take a picture of your heart to see how well it works. Blood tests. Imaging tests, such as: ? Chest X-ray. ? MRI. ? Ultrasound. Stress test. This test examines how well your heart functions when you exercise. Your heart is monitored while you exercise on a treadmill or exercise bike. If you cannot exercise, medicines may be used to increase your heartbeat in place of exercise. Cardiac catheterization. During this test, a thin, flexible tube (catheter) is inserted into a blood vessel and threaded up to your heart. This test allows your health care provider to check the arteries that lead to your heart (coronary arteries). Right heart catheterization. During this test, the pressure in your heart is measured. How is this treated? This condition may be treated by: Adjusting your heart medicines. Maintaining a healthy lifestyle. This includes: ? Eating a heart-healthy diet that is low in sodium. ? Not using any products that contain nicotine or tobacco, such as cigarettes and e-cigarettes. ? Regular exercise. ? Monitoring your fluid intake. ? Monitoring your weight and reporting changes to your health care provider. Treating sleep apnea, if you have this condition. Surgery. This may include: ? Implanting a device that helps both sides of your heart contract at the same time (cardiac resynchronization therapy device). This can help with heart function and relieve heart failure symptoms. ? Implanting a device that can correct heart rhythm problems (implantable cardioverter defibrillator). ? Connecting a device to your heart to help it pump blood (ventricular assist device). ? Heart transplant. Follow these instructions at home: Medicines Take lwlw-ywf-nrshmkr and prescription medicines only as told by your health care provider. Do not stop taking your medicines or change the amount you take. If you are having problems or side effects from your medicines, talk to your health care provider. If you are having difficulty paying for your medicines, contact a sr. social media & mobile manager or your clinic. There are many programs to assist with medicine costs. Talk to your health care provider before starting any new medicines or supplements. Make sure your health care provider and pharmacist have a list of all the medicines you are taking. Eating and drinking Avoid drinking alcohol. Eat a heart-healthy diet as told by your health care provider. This includes: ? Plenty of fruits and vegetables. ? Lean proteins. ? Low-fat dairy. ? Whole grains. ? Foods that are low in sodium. Activity Exercise regularly as told by your health care provider. Balance exercise with rest. Ask your health care provider what activities are safe for you. This includes sexual activity, exercise, and daily tasks at home or work. Lifestyle Do not use any products that contain nicotine or tobacco, such as cigarettes and e-cigarettes. If you need help quitting, ask your health care provider. Maintain a healthy weight. Ask your health care provider what weight is healthy for you. Consider joining a patient support group. This can help with emotional problems you may have, such as stress and anxiety. General instructions Talk to your health care provider about flu and pneumonia vaccines. Keep a list of medicines that you are taking. This may help in emergency situations. Keep all follow-up visits as told by your health care provider. This is important. Contact a health care provider if: You have questions about your medicines or you miss a dose. You feel anxious, depressed, or stressed. You have swelling in your feet, ankles, legs, or abdomen. You have shortness of breath during activity or exercise. You have a cough. You have a fever. You have trouble sleeping. You gain 2 3 lb (1 1.4 kg) in 24 hours or 5 lb (2.3 kg) in a week. Get help right away if: You have chest pain. You have shortness of breath while resting. You have severe fatigue. You are confused. You have severe dizziness. You have a rapid or irregular heartbeat. You have nausea or you vomit. You have a cough that is worse at night or you cannot lie flat. You have a cough that will not go away. You have severe depression or sadness. Summary When heart failure symptoms get worse, it is called heart failure exacerbation. Common causes of this condition include taking medicines incorrectly, infections, and drinking alcohol. This condition may be treated by adjusting medicines, maintaining a healthy lifestyle, or surgery. Do not stop taking your medicines or change the amount you take. If you are having problems or side effects from your medicines, talk to your health care provider. This information is not intended to replace advice given to you by your health care provider. Make sure you discuss any questions you have with your health care provider. Document Released: 07/08/2017 Document Revised: 02/06/2018 Document Reviewed: 07/08/2017 [employer] Patient Education 2020 [employer]. Additional Information VACCINATE! IT SAVES LIVES! Members of the community who have not yet received the COVID-19 vaccine and would like to receive it can visit one of [facility] vaccine clinics. There are many vaccine clinic locations within the [facility]. For locations and available times, please visit [email or web address].o hio.gov/. It is important to note that some COVID mobile vaccine clinics are held outdoors and may be canceled in rainy or stormy conditions. To learn more about pediatric vaccinations (ages 5-11), we invite you to visit the [facility] webpage. [email or web address] [email or web address] To learn more about the COVID-19 vaccine, we invite you to visit the CDC website for a list of frequently asked questions.https://www.cdc.gov/co ronavirus/2019-ncov/vaccines/faq .html [facility] Patient Portal Access Instructions: Stay connected with your healthcare team and access your personal medical information anytime with the [facility] Patient Portal. Please follow the directions below to create your [facility] account: 1.Access the email account you provided upon registration to the hospital/physician office.2.Look for an invitation email from [facility].3.Open the email and access the invitation link: Accept Invitation to [facility].4.Fill in the required perez to create your account. To access your account, visit [employer]. Click the blue button labeled Access Patient [...] you will allow to register on the [facility] Patient Portal for access to your information. You can also access the [facility] Patient Portal on the [employer] cristian. Simply click on Patient Portal and then log into your account. If you would like to receive a full copy of your medical records, please contact the [facility] Medical Records Department by calling [phone], Friday through Friday between 8 a.m. and [...] Call your local pharmacy or go to [email or web address] to find one close to you.3.Make use of household items: Use cat litter or old coffee grounds to dispose medications if other options are not available. Mix your drugs with these household products, seal them in an airtight container and throw it into the garbage. Call [facility]: [phone] to be sure your drugs can be [...] COPY. Signatures Patient Education Materials Heart Failure Exacerbation Medication Leaflets Aida, Emilymex My discharge plan and instructions have been reviewed and explained to me and I,SIA ABDUL understand my current condition and have read and understand these discharge instructions. I have received a written copy of the plan/instructions. If I have questions, I am aware that I should contact my doctor. Patient/Financial Services Education Consultant Signature: Date/Time: Relationship to Patient: Witness Name/Signature: Date/Time: [facility] 08-27-2024 Discharge summary Date of Service 08/27/24 Discharge Diagnosis Acute on chronic HFpEF 60 to 65% History of decreased RV function Prader Willi Pulmonary hypertension [RVSP 78mmHg May 2024, suspected WHO group 3 and component of group 2] PEA arrest July 2024 Morbid obesity Severe OHS and DACIA Hospital Course 44-year-old female with PMH of Prader-Willi syndrome, severe pulmonary hypertension [likely WHO 2+3], recent cardiac arrest/PEA arrest [05/2024], chronic HFpEF [EF 60 to 65%; 05/2024], 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 Patient was adequately diuresed with Bumex and is being discharged on Bumex 4 mg every morning and 2 mg every afternoon. Kidney function has been stable throughout her visit. She is on Jardiance and Aldactone for diastolic heart failure. V/Q negative for chronic VTE. Not a candidate for pulmonary hypertension meds as she has a component of group 2 as well. Limited echo showing dilated RV with normal systolic function, RVSP 41. She is to follow-up outpatient with pulmonary for home nocturnal AVAPS arrangement, she will be returning to nursing facility from hospital. Did speak with patient's mother and all questions and concerns were addressed. She is stable to be discharged back to skilled nursing today. Follow-up with cardiology PCP and pulmonary outpatient. Allergies Bee Stings Dilantin misc non-codified allergy phenytoin unknown Procedures none Consults No qualifying data available. Imaging Results and Diagnostics XR Chest 2 Views Result Date: August 23, 2024 Verified By: LORI WESLEY DO CLINICAL STATEMENT: IMPRESSION: Limited exam but appears to be improving pulmonary edema pattern with mildresidual patchy airspace opacities within the right mid to lower lung. NM Pulmonary Perfusion w/ Vent Aerosol Result Date: August 23, 2024 Verified By: MADIE LESTER MD CLINICAL STATEMENT: IMPRESSION: Pulmonary embolism absent (modified PIOPED II criteria). CT Thorax w/o Contrast Result Date: August 22, 2024 Verified By: TONO LANDERS DO CLINICAL STATEMENT: IMPRESSION: 1. Cardiomegaly with pulmonary vascular congestion and ground-glass alveolardisease in the lower lobes. This could be secondary to pulmonary edema oratypical pneumonia.2. No acute cardiopulmonary process identified.3. Limited evaluation of the upper abdomen due to body size and beamhardening artifact from the patient's arms. XR Chest 1 View Result Date: August 20, 2024 Verified By: MOE JARQUIN MD CLINICAL STATEMENT: IMPRESSION: No significant change in aeration. Physical Exam Vitals and Measurements T: 36.9 C (Oral) TMIN: 36.4 C (Oral) TMAX: 37.3 C (Axillary) HR: 76 (Monitored) RR: 18 BP: 114/51 SpO2: 98% WT: 135.9 kg Weight Current Weight Dosing Weight: 136.5 kg (08/22/24) Current Weight: 135.9 kg (08/27/24) Dosing Weight: 150 kg (08/20/24) Current Weight: 136.5 kg (08/26/24) GENERAL: Pt is comfortable in bed. 2 L nasal cannula NECK: no JVD CVS: S1 & S2 audible, Regular Rate and Rhythm, No Murmurs LUNG: Decreased breath sounds bilaterally GI: + BS, Abdomen is Soft EXTREMITIES: improved Lower extremity edema SKIN: Warm & Dry Pending Labs and Studies none Code Status Code Status - Ordered -- 08/20/24 2:32:00 EDT, Full Code, Constant Order Admission Date 08/20/24 Discharge Date 08/27/24 Medications New Prescription empagliflozin (Jardiance 10 mg oral tablet)1 tab(s) by mouth once a day (in the morning). Changed bumetanide (bumetanide 1 mg oral tablet)2 tab(s) by mouth once a day (in the evening). bumetanide (bumetanide 1 mg oral tablet)4 tab(s) by mouth once a day (in the morning). Unchanged [id number] Milligram by mouth every 4 hours as needed Pain, scale 1-3. acetaminophen (acetaminophen 650 mg rectal suppository)1 suppository(ies) in the rectum every 4 hours as needed as needed for pain. acetaminophen (acetaminophen 650 mg rectal suppository)1 suppository(ies) in the rectum every 4 hours as needed for fever. aluminum hydroxide-magnesium hydroxide (aluminum hydroxide-magnesium hydroxide 200 mg-200 mg/5 mL oral suspension)30 Milliliter by mouth every 4 hours. ammonium lactate topical (ammonium lactate 12% topical cream)1 application Topical daily at bedtime. aspirin (aspirin 81 mg oral delayed release tablet)1 tab(s) by mouth every day. atorvastatin (atorvastatin 20 mg oral tablet)1 tab(s) by mouth every day. Refills: 0. bisacodyl (bisacodyl 10 mg rectal enema)1 Each in the rectum once a day as needed as needed for constipation. budesonide (budesonide 0.5 mg/2 mL inhalation suspension)2 Milliliter by inhalation once a day. calcium carbonate (calcium carbonate 500 mg (200 mg elemental calcium) oral tablet, chewable)1 tab(s) Chewed two (2) times a day. cholecalciferol (Vitamin D3 125 mcg (5000 intl units) oral capsule)1 cap by mouth every week for 12 week(s). EPINEPHrine (EPINEPHrine 0.3 mg injectable kit)1 Each Intramuscular As Directed as needed Allergic reaction. glucagon (Glucagon Emergency Kit for Low Blood Sugar 1 mg injection)1 Milligram Intramuscular As Directed as needed Hypoglycemia. [id number] Milliliter by mouth every 4 hours as needed for cough. ipratropium (ipratropium 500 mcg/2.5 mL inhalation solution)2.5 Milliliter by inhalation four (4) times a day for 30 Days. Refills: 0. levothyroxine (levothyroxine 100 mcg (0.1 mg) oral tablet)1 tab(s) by mouth once a day. magnesium hydroxide (Milk of Magnesia 8% oral suspension)30 Milliliter by mouth daily at bedtime as needed as needed for constipation. multivitamin with minerals (Therapeutic Multiple Vitamins with Minerals, Zinc and Elderberry oral tablet, chewable)1 tab Chewed once a day. senna (Senna 8.6 mg oral tablet)1 tab(s) by mouth daily at bedtime as needed as needed for constipation. sodium biphosphate-sodium phosphate (Fleet Enema)1 Each in the rectum once a day. spironolactone (Aldactone 25 mg oral tablet)1 tab(s) by mouth once a day with a meal. Refills: 0. tirzepatide (tirzepatide 5 mg/0.5 mL subcutaneous solution)5 Milligram Subcutaneous every week. rotate injection sites. Follow Up Follow Up with ANSELMO FALK MD When:Within 5 to 7 days [facility] [facility] [address] [facility] [place] [address]- [phone] Additional Information: Follow up with cardiology within 1 week. Follow Up with Follow up with primary care provider When:Within 5 to 7 days Additional Information: Follow-up with your PCP within 1 week Follow Up with [facility] [place] [facility] [phone] When:Within 1-2 days Follow Up with TIA MORRISON When:Within 1-2 days Where:[address] [place] [address]- [phone] [facility] (1) Follow Up Appointments No qualifying data available. Follow Up Labs/Studies Discharge Labs No Follow-up Labs Discharge Studies No Follow-up Studies Discharge Diet Transfer of Care Diet - Ordered -- Type of Diet: Cardiac, Sodium limit: Low, 08/27/24 14:08:00 EDT Discharge Activity Transfer of Care Activity - Ordered -- Activity As Tolerated, 08/27/24 14:08:00 EDT Condition on Discharge stable Discharge Disposition detention Time Spent > 30 min Digitally Signed by ESTELA GARCIA MD on 08/27/2024 02:14 PM [facility] 08-26-2024 Cardiology Progress note Date of Service 08/25/2024 Subjective Patient seen and examined at bedside. No acute overnight events. Denies any complaints this morning. Requesting pulmonary to write letter to Medicaid stating that she does not need a repeat sleep study for her nocturnal AVAPS. Telemetry negative for any acute arrhythmia. Urine output of 3 L negative also 2 L last 24 hours. Objective Vitals and Measurements T: 36.5 C (Oral) TMIN: 36.3 C (Oral) TMAX: 36.6 C (Oral) HR: 70 (Monitored) RR: 18 BP: 122/82 SpO2: 98% WT: 145.4 kg Intake and Output 7AM Yesterday to 7AM Today Intake and Output (Last 24 hours) Intake Oral Intake 920.00 Supplement Intake 240.00 Output Urine Voided 2800.00 Stool Count 2.00 Urine Count 1.00 Total Summary Total Intake 1160.00 Total Output 2800.00 Fluid Balance -1640.00 Physical Exam GENERAL: Pt is comfortable in bed. 2 L nasal cannula NECK: JVD improving CVS: S1 & S2 audible, Regular Rate and Rhythm, No Murmurs LUNG: Decreased breath sounds bilaterally GI: + BS, Abdomen is Soft EXTREMITIES: Lower extremity edema SKIN: Warm & Dry Weight Current Weight Dosing Weight: 136.5 kg (08/22/24) Current Weight: 145.4 kg (08/25/24) Dosing Weight: 150 kg (08/20/24) Medications Medications (33) Active Scheduled: (13) aspirin 81 mg EC 81 mg 1 tab(s), Oral, Daily atorvastatin 20 mg tablet 20 mg 1 tab(s), Oral, Daily budesonide 0.5 mg/2 mL Susp UD 0.5 mg 2 mL, Inhalation, qDayRT bumetanide 0.25 mg/1 mL 4 mL VIAL 4 mg 16 mL, IV Push, BID calcium carbonate 500 mg Chewable 500 mg 1 tab(s), Chewed, BID cholecalciferol 125 mcg capsule (Vit D3 5000 unit(s)) 125 mcg 1 cap(s), Oral, Damaso heparin 5,000 units/mL (1 mL) vial 5,000 unit(s) 1 mL, Subcutaneous, q8h ipratropium 0.02% (0.5mg/2.5mL) UD 500 mcg 2.5 mL, Inhalation, QIDRT levothyroxine 100 mcg tablet 100 mcg 1 tab(s), Oral, qDay multivitamin (Myadec) with minerals Therapeutic Multiple Vitamins with Minerals Tablet 1 tab(s), Oral, qDayM sodium biphosphate-sodium phosphate 19 gm-7 gm Enema 133 mL, Rectal, qDay spironolactone 25 mg tablet 25 mg 1 tab(s), Oral, qDayM tirzepatide 5 mg/0.5 mL subcutaneous solution 5 mg, Subcutaneous, Friday Continuous: (0) PRN: (20) acetaminophen 325 mg Tablet 650 mg 2 tab(s), Oral, q4h Al hydrox/Mg hydrox/simethicone 200-200-20 mg/5 mL Susp UD 30 mL, Oral, q4h albuterol - ipratropium 2.5 mg-0.5 mg/3 mL Inhal Jewell UD 3 mL, Inhalation, q4hRT bisacodyl 10 mg Suppository 10 mg 1 supp, Rectal, qDay dextrose 50% Solution Disp syringe 50 mL 25 gram(s) 50 mL, IV Push, AsDirected docusate sodium 100 mg Capsule 100 mg 1 cap(s), Oral, BID glucagon recombinant 1 mg 1 mg 1 mL, Intramuscular, AsDirected guaifenesin 100 mg/5 mL Liquid 120 mL 200 mg 10 mL, Oral, q4h magnesium hydroxide 8% Suspension 30 mL UD 30 mL, Oral, qHS magnesium hydroxide 8% Suspension 30 mL UD 30 mL, Oral, qHS magnesium sulfate 4 gram(s)/100mL PMX 4 g 100 mL, IV Piggyback, AsDirected magnesium sulfate 50% (500mg/mL) 6 g 12 mL, IV Piggyback, AsDirected magnesium sulfate PMX 2 g 50 mL, IV Piggyback, AsDirected ondansetron 2 mg/ 1 mL 2 mL INJ 4 mg 2 mL, IV Push, q4h polyethylene glycol 3350 - UD packet 17 gram(s) 15 mL, Oral, qDay potassium chloride (PMX) 20 mEq/100 mL 20 mEq 100 mL, IV Piggyback, AsDirected potassium chloride 20 mEq ER tablet 20 mEq 1 tab(s), Oral, AsDirected potassium chloride 20 mEq ER tablet 40 mEq 2 tab(s), Oral, AsDirected potassium chloride 20 mEq ER tablet 40 mEq 2 tab(s), Oral, AsDirected senna 8.6 mg Tablet 8.6 mg 1 tab(s), Oral, qHS Lab Results 08/25 08:59 WBC: 10.6 Hgb: 11.6 L Hct: 36.1 Platelet: 203 Neutrophil %: 67.3 Glucose Level: 100 Sodium Level: 140 Potassium Level: 4.3 BUN: 24.0 H Creatinine Lvl (s): 0.57 08/24 10:15 WBC: 11.0 H Hgb: 12.5 Hct: 39.4 Platelet: 220 Neutrophil %: 70.7 Glucose Level: 102 Sodium Level: 140 Potassium Level: 3.8 BUN: 19.0 Creatinine Lvl (s): 0.50 EKG No qualifying data available. Assessment/Plan Acute on chronic HFpEF 60 to 65% History of decreased RV function Prader Willi Pulmonary hypertension [RVSP 78mmHg May 2024, suspected WHO group 3 and component of group 2] PEA arrest July 2024 Morbid obesity Severe OHS and DACIA Plan -Volume status is improving, BUN up titration noted will decrease IV Bumex 4 mg from 3 times daily to twice daily dosing. Daily weight, strict I's and O's, keep mag above 2 and potassium before. Repeat BMP this evening. - V/Q negative for chronic VTE. Not a candidate for pulmonary hypertension meds as she has a component of group 2 as well. Limited echo to evaluate LV function pending. -Attempted to contact mother as patient would like pulmonary to write letter stating that she does not require repeat sleep study in order to obtain nocturnal AVAPS given she changed insurance companies. This would likely to be done outpatient with pulmonary, did try to reach out to patient's mother regarding UTI history to start Jardiance as well as nocturnal AVAPS issues however was unable to reach her. -Continue other home medications -Continue monitor closely Digitally Signed by ESTELA GARCIA MD on 08/25/2024 12:36 PM Digitally Signed by ESTELA GARCIA MD on 08/25/2024 12:48 PM [facility] 08-26-2024 Cardiology Progress note Date of Service 08/26/2024 Subjective Patient seen and examined at bedside. No acute overnight events. Urine output of 3.2 L negative balance of approximately 2 L in last 24 hours. Objective Vitals and Measurements T: 36.4 C (Oral) TMIN: 36.4 C (Oral) TMAX: 36.9 C (Oral) HR: 72 RR: 17 BP: 126/78 SpO2: 100% WT: 136.5 kg Intake and Output 7AM Yesterday to 7AM Today Intake and Output (Last 24 hours) Intake Oral Intake 840.00 Supplement Intake 0.00 Output Urine Voided 2200.00 Stool Count 4.00 Urine Count 1.00 Total Summary Total Intake 840.00 Total Output 2200.00 Fluid Balance -1360.00 Physical Exam GENERAL: Pt is comfortable in bed. 2 L nasal cannula NECK: Significant JVD CVS: S1 & S2 audible, Regular Rate and Rhythm, No Murmurs LUNG: Decreased breath sounds bilaterally GI: + BS, Abdomen is Soft EXTREMITIES: Lower extremity edema SKIN: Warm & Dry Weight Current Weight Dosing Weight: 136.5 kg (08/22/24) Current Weight: 136.5 kg (08/26/24) Dosing Weight: 150 kg (08/20/24) Current Weight: 145.4 kg (08/25/24) Medications Medications (34) Active Scheduled: (14) aspirin 81 mg EC 81 mg 1 tab(s), Oral, Daily atorvastatin 20 mg tablet 20 mg 1 tab(s), Oral, Daily budesonide 0.5 mg/2 mL Susp UD 0.5 mg 2 mL, Inhalation, qDayRT bumetanide 0.25 mg/1 mL 4 mL VIAL 4 mg 16 mL, IV Push, TID calcium carbonate 500 mg Chewable 500 mg 1 tab(s), Chewed, BID cholecalciferol 125 mcg capsule (Vit D3 5000 unit(s)) 125 mcg 1 cap(s), Oral, Damaso empagliflozin 10 mg tablet 10 mg 1 tab(s), Oral, qAM heparin 5,000 units/mL (1 mL) vial 5,000 unit(s) 1 mL, Subcutaneous, q8h ipratropium 0.02% (0.5mg/2.5mL) UD 500 mcg 2.5 mL, Inhalation, QIDRT levothyroxine 100 mcg tablet 100 mcg 1 tab(s), Oral, qDay multivitamin (Myadec) with minerals Therapeutic Multiple Vitamins with Minerals Tablet 1 tab(s), Oral, qDayM sodium biphosphate-sodium phosphate 19 gm-7 gm Enema 133 mL, Rectal, qDay spironolactone 25 mg tablet 25 mg 1 tab(s), Oral, qDayM tirzepatide 5 mg/0.5 mL subcutaneous solution 5 mg, Subcutaneous, Friday Continuous: (0) PRN: (20) acetaminophen 325 mg Tablet 650 mg 2 tab(s), Oral, q4h Al hydrox/Mg hydrox/simethicone 200-200-20 mg/5 mL Susp UD 30 mL, Oral, q4h albuterol - ipratropium 2.5 mg-0.5 mg/3 mL Inhal Jewell UD 3 mL, Inhalation, q4hRT bisacodyl 10 mg Suppository 10 mg 1 supp, Rectal, qDay dextrose 50% Solution Disp syringe 50 mL 25 gram(s) 50 mL, IV Push, AsDirected docusate sodium 100 mg Capsule 100 mg 1 cap(s), Oral, BID glucagon recombinant 1 mg 1 mg 1 mL, Intramuscular, AsDirected guaifenesin 100 mg/5 mL Liquid 120 mL 200 mg 10 mL, Oral, q4h magnesium hydroxide 8% Suspension 30 mL UD 30 mL, Oral, qHS magnesium hydroxide 8% Suspension 30 mL UD 30 mL, Oral, qHS magnesium sulfate 4 gram(s)/100mL PMX 4 g 100 mL, IV Piggyback, AsDirected magnesium sulfate 50% (500mg/mL) 6 g 12 mL, IV Piggyback, AsDirected magnesium sulfate PMX 2 g 50 mL, IV Piggyback, AsDirected ondansetron 2 mg/ 1 mL 2 mL INJ 4 mg 2 mL, IV Push, q4h polyethylene glycol 3350 - UD packet 17 gram(s) 15 mL, Oral, qDay potassium chloride (PMX) 20 mEq/100 mL 20 mEq 100 mL, IV Piggyback, AsDirected potassium chloride 20 mEq ER tablet 20 mEq 1 tab(s), Oral, AsDirected potassium chloride 20 mEq ER tablet 40 mEq 2 tab(s), Oral, AsDirected potassium chloride 20 mEq ER tablet 40 mEq 2 tab(s), Oral, AsDirected senna 8.6 mg Tablet 8.6 mg 1 tab(s), Oral, qHS Lab Results 08/26 04:56 WBC: 11.0 H Hgb: 10.6 L Hct: 32.8 L Platelet: 181 Neutrophil %: 63.2 Glucose Level: 111 H Sodium Level: 142 Potassium Level: 4.4 BUN: 23.0 H Creatinine Lvl (s): 0.60 08/25 18:49 Glucose Level: 111 H Sodium Level: 140 Potassium Level: 4.6 BUN: 25.0 H Creatinine Lvl (s): 0.52 08/25 08:59 WBC: 10.6 Hgb: 11.6 L Hct: 36.1 Platelet: 203 Neutrophil %: 67.3 Glucose Level: 100 Sodium Level: 140 Potassium Level: 4.3 BUN: 24.0 H Creatinine Lvl (s): 0.57 EKG No qualifying data available. Assessment/Plan Acute on chronic HFpEF 60 to 65% History of decreased RV function Prader Willi Pulmonary hypertension [RVSP 78mmHg May 2024, suspected WHO group 3 and component of group 2] PEA arrest July 2024 Morbid obesity Severe OHS and DACIA Plan - Remains hypervolemic, will increase her Bumex 4 mg IV to 3 times daily dosing. Daily weight, strict I's and O's, keep mag above 2 and potassium before. Kidney function remained stable, repeat BMP this evening. -Will start patient on Jardiance and continue Aldactone for diastolic heart failure - V/Q negative for chronic VTE. Not a candidate for pulmonary hypertension meds as she has a component of group 2 as well. Limited echo showing dilated RV with normal systolic function, RVSP 41, right atrial pressure of 8. 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 -Continue other home medications -Continue monitor closely Digitally Signed by ESTELA GARCIA MD on 08/26/2024 11:09 AM Digitally Signed by ESTELA GARCIA MD on 08/26/2024 11:10 AM [facility] 08-26-2024 Cardiology Progress note Date of Service 08/26/2024 Subjective Patient seen and examined at bedside. No acute overnight events. Urine output of 3.2 L negative balance of approximately 2 L in last 24 hours. Objective Vitals and Measurements T: 36.4 C (Oral) TMIN: 36.4 C (Oral) TMAX: 36.9 C (Oral) HR: 72 RR: 17 BP: 126/78 SpO2: 100% WT: 136.5 kg Intake and Output 7AM Yesterday to 7AM Today Intake and Output (Last 24 hours) Intake Oral Intake 840.00 Supplement Intake 0.00 Output Urine Voided 2200.00 Stool Count 4.00 Urine Count 1.00 Total Summary Total Intake 840.00 Total Output 2200.00 Fluid Balance -1360.00 Physical Exam GENERAL: Pt is comfortable in bed. 2 L nasal cannula NECK: Significant JVD CVS: S1 & S2 audible, Regular Rate and Rhythm, No Murmurs LUNG: Decreased breath sounds bilaterally GI: + BS, Abdomen is Soft EXTREMITIES: Lower extremity edema SKIN: Warm & Dry Weight Current Weight Dosing Weight: 136.5 kg (08/22/24) Current Weight: 136.5 kg (08/26/24) Dosing Weight: 150 kg (08/20/24) Current Weight: 145.4 kg (08/25/24) Medications Medications (34) Active Scheduled: (14) aspirin 81 mg EC 81 mg 1 tab(s), Oral, Daily atorvastatin 20 mg tablet 20 mg 1 tab(s), Oral, Daily budesonide 0.5 mg/2 mL Susp UD 0.5 mg 2 mL, Inhalation, qDayRT bumetanide 0.25 mg/1 mL 4 mL VIAL 4 mg 16 mL, IV Push, TID calcium carbonate 500 mg Chewable 500 mg 1 tab(s), Chewed, BID cholecalciferol 125 mcg capsule (Vit D3 5000 unit(s)) 125 mcg 1 cap(s), Oral, Friday empagliflozin 10 mg tablet 10 mg 1 tab(s), Oral, qAM heparin 5,000 units/mL (1 mL) vial 5,000 unit(s) 1 mL, Subcutaneous, q8h ipratropium 0.02% (0.5mg/2.5mL) UD 500 mcg 2.5 mL, Inhalation, QIDRT levothyroxine 100 mcg tablet 100 mcg 1 tab(s), Oral, qDay multivitamin (Myadec) with minerals Therapeutic Multiple Vitamins with Minerals Tablet 1 tab(s), Oral, qDayM sodium biphosphate-sodium phosphate 19 gm-7 gm Enema 133 mL, Rectal, qDay spironolactone 25 mg tablet 25 mg 1 tab(s), Oral, qDayM tirzepatide 5 mg/0.5 mL subcutaneous solution 5 mg, Subcutaneous, Friday Continuous: (0) PRN: (20) acetaminophen 325 mg Tablet 650 mg 2 tab(s), Oral, q4h Al hydrox/Mg hydrox/simethicone 200-200-20 mg/5 mL Susp UD 30 mL, Oral, q4h albuterol - ipratropium 2.5 mg-0.5 mg/3 mL Inhal Jewell UD 3 mL, Inhalation, q4hRT bisacodyl 10 mg Suppository 10 mg 1 supp, Rectal, qDay dextrose 50% Solution Disp syringe 50 mL 25 gram(s) 50 mL, IV Push, AsDirected docusate sodium 100 mg Capsule 100 mg 1 cap(s), Oral, BID glucagon recombinant 1 mg 1 mg 1 mL, Intramuscular, AsDirected guaifenesin 100 mg/5 mL Liquid 120 mL 200 mg 10 mL, Oral, q4h magnesium hydroxide 8% Suspension 30 mL UD 30 mL, Oral, qHS magnesium hydroxide 8% Suspension 30 mL UD 30 mL, Oral, qHS magnesium sulfate 4 gram(s)/100mL PMX 4 g 100 mL, IV Piggyback, AsDirected magnesium sulfate 50% (500mg/mL) 6 g 12 mL, IV Piggyback, AsDirected magnesium sulfate PMX 2 g 50 mL, IV Piggyback, AsDirected ondansetron 2 mg/ 1 mL 2 mL INJ 4 mg 2 mL, IV Push, q4h polyethylene glycol 3350 - UD packet 17 gram(s) 15 mL, Oral, qDay potassium chloride (PMX) 20 mEq/100 mL 20 mEq 100 mL, IV Piggyback, AsDirected potassium chloride 20 mEq ER tablet 20 mEq 1 tab(s), Oral, AsDirected potassium chloride 20 mEq ER tablet 40 mEq 2 tab(s), Oral, AsDirected potassium chloride 20 mEq ER tablet 40 mEq 2 tab(s), Oral, AsDirected senna 8.6 mg Tablet 8.6 mg 1 tab(s), Oral, qHS Lab Results 08/26 04:56 WBC: 11.0 H Hgb: 10.6 L Hct: 32.8 L Platelet: 181 Neutrophil %: 63.2 Glucose Level: 111 H Sodium Level: 142 Potassium Level: 4.4 BUN: 23.0 H Creatinine Lvl (s): 0.60 08/25 18:49 Glucose Level: 111 H Sodium Level: 140 Potassium Level: 4.6 BUN: 25.0 H Creatinine Lvl (s): 0.52 08/25 08:59 WBC: 10.6 Hgb: 11.6 L Hct: 36.1 Platelet: 203 Neutrophil %: 67.3 Glucose Level: 100 Sodium Level: 140 Potassium Level: 4.3 BUN: 24.0 H Creatinine Lvl (s): 0.57 EKG No qualifying data available. Assessment/Plan Acute on chronic HFpEF 60 to 65% History of decreased RV function Prader Willi Pulmonary hypertension [RVSP 78mmHg May 2024, suspected WHO group 3 and component of group 2] PEA arrest July 2024 Morbid obesity Severe OHS and DACIA Plan - Remains hypervolemic, will increase her Bumex 4 mg IV to 3 times daily dosing. Daily weight, strict I's and O's, keep mag above 2 and potassium before. Kidney function remained stable, repeat BMP this evening. -Will start patient on Jardiance and continue Aldactone for diastolic heart failure - V/Q negative for chronic VTE. Not a candidate for pulmonary hypertension meds as she has a component of group 2 as well. Limited echo showing dilated RV with normal systolic function, RVSP 41, right atrial pressure of 8. 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 -Continue other home medications -Continue monitor closely Digitally Signed by ESTELA GARCIA MD on 08/26/2024 11:09 AM Digitally Signed by ESTELA GARCIA MD on 08/26/2024 11:10 AM [facility] 08-25-2024 Note Exam Date Time Procedure Performing Provider Status 08/25/24 12:51 PM Echocardiogram Oneliao joni tran, Adult - CV SELENE ACOSTA MD; Auth (Verified) [id number] Cardiology Progress note Date of Service 08/25/2024 Subjective Patient seen and examined at bedside. No acute overnight events. Denies any complaints this morning. Requesting pulmonary to write letter to Medicaid stating that she does not need a repeat sleep study for her nocturnal AVAPS. Telemetry negative for any acute arrhythmia. Urine output of 3 L negative also 2 L last 24 hours. Objective Vitals and Measurements T: 36.5 C (Oral) TMIN: 36.3 C (Oral) TMAX: 36.6 C (Oral) HR: 70 (Monitored) RR: 18 BP: 122/82 SpO2:98% WT: 145.4 kg Intake and Output 7AM Yesterday to 7AM Today Intake and Output (Last 24 hours) Intake Oral Intake 920.00 Supplement Intake 240.00 Output Urine Voided 2800.00 Stool Count 2.00 Urine Count 1.00 Total Summary Total Intake 1160.00 Total Output 2800.00 Fluid Balance -1640.00 Physical Exam GENERAL: Pt is comfortable in bed. 2 L nasal cannula NECK: JVD improving CVS: S1 & S2 audible, Regular Rate and Rhythm, No Murmurs LUNG: Decreased breath sounds bilaterally GI: + BS, Abdomen is Soft EXTREMITIES: Lower extremity edema SKIN: Warm & Dry Weight Current Weight Dosing Weight: 136.5 kg (08/22/24) Current Weight: 145.4 kg (08/25/24) Dosing Weight: 150 kg (08/20/24) Medications Medications (33) Active Scheduled: (13) aspirin 81 mg EC 81 mg 1 tab(s), Oral, Daily atorvastatin 20 mg tablet 20 mg 1 tab(s), Oral, Daily budesonide 0.5 mg/2 mL Susp UD 0.5 mg 2 mL, Inhalation, qDayRT bumetanide 0.25 mg/1 mL 4 mL VIAL 4 mg 16 mL, IV Push, BID calcium carbonate 500 mg Chewable 500 mg 1 tab(s), Chewed, BID cholecalciferol 125 mcg capsule (Vit D3 5000 unit(s)) 125 mcg 1 cap(s), Oral, Damaso heparin 5,000 units/mL (1 mL) vial 5,000 unit(s) 1 mL, Subcutaneous, q8h ipratropium 0.02% (0.5mg/2.5mL) UD 500 mcg 2.5 mL, Inhalation, QIDRT levothyroxine 100 mcg tablet 100 mcg 1 tab(s), Oral, qDay multivitamin (Myadec) with minerals Therapeutic Multiple Vitamins with Minerals Tablet 1 tab(s), Oral, qDayM sodium biphosphate-sodium phosphate 19 gm-7 gm Enema 133 mL, Rectal, qDay spironolactone 25 mg tablet 25 mg 1 tab(s), Oral, qDayM tirzepatide 5 mg/0.5 mL subcutaneous solution 5 mg, Subcutaneous, Friday Continuous: (0) PRN: (20) acetaminophen 325 mg Tablet 650 mg 2 tab(s), Oral, q4h Al hydrox/Mg hydrox/simethicone 200-200-20 mg/5 mL Susp UD 30 mL, Oral, q4h albuterol - ipratropium 2.5 mg-0.5 mg/3 mL Inhal Jewell UD 3 mL, Inhalation, q4hRT bisacodyl 10 mg Suppository 10 mg 1 supp, Rectal, qDay dextrose 50% Solution Disp syringe 50 mL 25 gram(s) 50 mL, IV Push, AsDirected docusate sodium 100 mg Capsule 100 mg 1 cap(s), Oral, BID glucagon recombinant 1 mg 1 mg 1 mL, Intramuscular, AsDirected guaifenesin 100 mg/5 mL Liquid 120 mL 200 mg 10 mL, Oral, q4h magnesium hydroxide 8% Suspension 30 mL UD 30 mL, Oral, qHS magnesium hydroxide 8% Suspension 30 mL UD 30 mL, Oral, qHS magnesium sulfate 4 gram(s)/100mL PMX 4 g 100 mL, IV Piggyback, AsDirected magnesium sulfate 50% (500mg/mL) 6 g 12 mL, IV Piggyback, AsDirected magnesium sulfate PMX 2 g 50 mL, IV Piggyback, AsDirected ondansetron 2 mg/ 1 mL 2 mL INJ 4 mg 2 mL, IV Push, q4h polyethylene glycol 3350 - UD packet 17 gram(s) 15 mL, Oral, qDay potassium chloride (PMX) 20 mEq/100 mL 20 mEq 100 mL, IV Piggyback, AsDirected potassium chloride 20 mEq ER tablet 20 mEq 1 tab(s), Oral, AsDirected potassium chloride 20 mEq ER tablet 40 mEq 2 tab(s), Oral, AsDirected potassium chloride 20 mEq ER tablet 40 mEq 2 tab(s), Oral, AsDirected senna 8.6 mg Tablet 8.6 mg 1 tab(s), Oral, qHS Lab Results 08/25 08:59 WBC: 10.6 Hgb: 11.6 L Hct: 36.1 Platelet: 203 Neutrophil %: 67.3 Glucose Level: 100 Sodium Level: 140 Potassium Level: 4.3 BUN: 24.0 H Creatinine Lvl (s): 0.57 08/24 10:15 WBC: 11.0 H Hgb: 12.5 Hct: 39.4 Platelet: 220 Neutrophil %: 70.7 Glucose Level: 102 Sodium Level: 140 Potassium Level: 3.8 BUN: 19.0 Creatinine Lvl (s): 0.50 EKG No qualifying data available. Assessment/Plan Acute on chronic HFpEF 60 to 65% History of decreased RV function Prader Willi Pulmonary hypertension [RVSP 78mmHg May 2024, suspected WHO group 3 and component of group 2] PEA arrest July 2024 Morbid obesity Severe OHS and DACIA Plan -Volume status is improving, BUN up titration noted will decrease IV Bumex 4 mg from 3 times daily to twice daily dosing. Daily weight, strict I's and O's, keep mag above 2 and potassium before. Repeat BMP this evening. - V/Q negative for chronic VTE. Not a candidate for pulmonary hypertension meds as she has a component of group 2 as well. Limited echo to evaluate LV function pending. -Attempted to contact mother as patient would like pulmonary to write letter stating that she does not require repeat sleep study in order to obtain nocturnal AVAPS given she changed insurance companies. This would likely to be done outpatient with pulmonary, did try to reach out to patient's mother regarding UTI history to start Jardiance as well as nocturnal AVAPS issues however was unable to reach her. -Continue other home medications -Continue monitor closely Digitally Signed by ESTELA GARCIA MD on 08/25/2024 12:36 PM Digitally Signed by ESTELA GARCIA MD on 08/25/2024 12:48 PM [id number] Cardiology Progress note Date of Service 08/24 Subjective no acute events Objective Vitals and Measurements T: 36.6 C (Oral) TMIN: 36.3 C (Oral) TMAX: 36.6 C (Oral) HR: 63 (Monitored) RR: 17 BP: 108/59 SpO2:97% Intake and Output 7AM Yesterday to 7AM Today Intake and Output (Last 24 hours) Intake Oral Intake 760.00 Output Urine Voided 4200.00 Stool Count 2.00 Total Summary Total Intake 760.00 Total Output 4200.00 Fluid Balance -3440.00 Physical Exam General: AAOX3, NAD HEENT: Anicteric sclera, MMM Neck: Trachea midline, no JVD appreciated CVS: RRR, normal S1/S2, no murmurs/rubs/gallops Lung: CTAB, no wheezes/rhonchi/rales Abd: Soft, NT/ND Extrem: WWP, significant lymphedema Skin: Warm, Intact Neuro: AAOX3, spontaneous movement of all extremities Psych: Appropriate mood & affect Weight Dosing Weight: 136.5 kg (08/22/24) Dosing Weight: 150 kg (08/20/24) Medications Medications (33) Active Scheduled: (13) aspirin 81 mg EC 81 mg 1 tab(s), Oral, Daily atorvastatin 20 mg tablet 20 mg 1 tab(s), Oral, Daily budesonide 0.5 mg/2 mL Susp UD 0.5 mg 2 mL, Inhalation, qDayRT bumetanide 0.25 mg/1 mL 4 mL VIAL 4 mg 16 mL, IV Push, TID calcium carbonate 500 mg Chewable 500 mg 1 tab(s), Chewed, BID cholecalciferol 125 mcg capsule (Vit D3 5000 unit(s)) 125 mcg 1 cap(s), Oral, Damaso heparin 5,000 units/mL (1 mL) vial 5,000 unit(s) 1 mL, Subcutaneous, q8h ipratropium 0.02% (0.5mg/2.5mL) UD 500 mcg 2.5 mL, Inhalation, QIDRT levothyroxine 100 mcg tablet 100 mcg 1 tab(s), Oral, qDay multivitamin (Myadec) with minerals Therapeutic Multiple Vitamins with Minerals Tablet 1 tab(s), Oral, qDayM sodium biphosphate-sodium phosphate 19 gm-7 gm Enema 133 mL, Rectal, qDay spironolactone 25 mg tablet 25 mg 1 tab(s), Oral, qDayM tirzepatide 5 mg/0.5 mL subcutaneous solution 5 mg, Subcutaneous, Friday Continuous: (0) PRN: (20) acetaminophen 325 mg Tablet 650 mg 2 tab(s), Oral, q4h Al hydrox/Mg hydrox/simethicone 200-200-20 mg/5 mL Susp UD 30 mL, Oral, q4h albuterol - ipratropium 2.5 mg-0.5 mg/3 mL Inhal Jewell UD 3 mL, Inhalation, q4hRT bisacodyl 10 mg Suppository 10 mg 1 supp, Rectal, qDay dextrose 50% Solution Disp syringe 50 mL 25 gram(s) 50 mL, IV Push, AsDirected docusate sodium 100 mg Capsule 100 mg 1 cap(s), Oral, BID glucagon recombinant 1 mg 1 mg 1 mL, Intramuscular, AsDirected guaifenesin 100 mg/5 mL Liquid 120 mL 200 mg 10 mL, Oral, q4h magnesium hydroxide 8% Suspension 30 mL UD 30 mL, Oral, qHS magnesium hydroxide 8% Suspension 30 mL UD 30 mL, Oral, qHS magnesium sulfate 4 gram(s)/100mL PMX 4 g 100 mL, IV Piggyback, AsDirected magnesium sulfate 50% (500mg/mL) 6 g 12 mL, IV Piggyback, AsDirected magnesium sulfate PMX 2 g 50 mL, IV Piggyback, AsDirected ondansetron 2 mg/ 1 mL 2 mL INJ 4 mg 2 mL, IV Push, q4h polyethylene glycol 3350 - UD packet 17 gram(s) 15 mL, Oral, qDay potassium chloride (PMX) 20 mEq/100 mL 20 mEq 100 mL, IV Piggyback, AsDirected potassium chloride 20 mEq ER tablet 20 mEq 1 tab(s), Oral, AsDirected potassium chloride 20 mEq ER tablet 40 mEq 2 tab(s), Oral, AsDirected potassium chloride 20 mEq ER tablet 40 mEq 2 tab(s), Oral, AsDirected senna 8.6 mg Tablet 8.6 mg 1 tab(s), Oral, qHS Lab Results 08/24 10:15 WBC: 11.0 H Hgb: 12.5 Hct: 39.4 Platelet: 220 Neutrophil %: 70.7 Glucose Level: 102 Sodium Level: 140 Potassium Level: 3.8 BUN: 19.0 Creatinine Lvl (s): 0.50 08/23 16:08 Glucose Level: 83 Sodium Level: 143 Potassium Level: 4.8 BUN: 21.0 Creatinine Lvl (s): 0.54 08/23 06:23 WBC: 10.3 Hgb: 11.1 L Hct: 34.5 Platelet: 188 Neutrophil %: 60.9 Glucose Level: 82 Sodium Level: 140 Potassium Level: 3.8 BUN: 19.0 Creatinine Lvl (s): 0.62 EKG No qualifying data available. Assessment/Plan Orders: bumetanide(Bumex), 4 mg= 16 mL, IV Push, TID Echocardiogram Adult Follow up(Cardiac Echo Adult Follow up), 08/24/24 15:30:00 EDT, Routine, RV function, severe pulmonary hypertension, Physician to Read: [facility], Echo Contrast:Use if indicated and not contraindicated, Portable, Full Code, 136.844888 kg, [facility], CCU, 08/24/24 15:... Specialty Bed & Equipment, 08/24/24 12:05:00 EDT, Bariatric Recliner Chair, Weight: 136.5, Constant order Acute on chronic HFpEF Prader Willi Pulmonary hypertension [RVSP 78mmHg May 2024, suspected WHO group 3 and component of group 2] PEA arrest July 2024 Patient is a 44-year-old female, resident at skilled nursing, with medical history significant for HFpEF, Prader-Willi/intellectual disability, severe pulmonary hypertension thought to be secondary to group 3 and component of group 2, who presented after an outpatient office visit noted to have weight gain admitted for acute on chronic HFpEF. She went to see her primary dental floss packer on 08/17/2024 where they noted her weight to be increased from 309 pounds to 320 pounds. They increase the dose of Bumex to 2 mg twice daily, but her weight Increasing, so the Patient is admitted for CHF Exacerbation. Pt has been on IV bumex drip since 08/20 to 08/22, weight is down from 150kg on admission to 136.5 kgtoday. Patient does not prefer to be on IV bumex drip overnight as she needs to use the bathroom frequently. Will continue intermittent pushes IV bumex 4 mg TID V/Q negative for chronic VTE. Not a candidate for pulmonary hypertension meds as she has a component of group 2 as well. Check RV function via limited echo (pending) Will add Jardiance is no history of UTIs, patient denies UTI hx will verify with mother Pt's mother endorses she has been compliant with using AVAPS at [facility] Digitally Signed by AUGUST RIBERA MD on 08/24/2024 03:57 PM [id number] Cardiology Progress note Date of Service 08/24 Subjective no acute events Objective Vitals and Measurements T: 36.6 C (Oral) TMIN: 36.3 C (Oral) TMAX: 36.6 C (Oral) HR: 63 (Monitored) RR: 17 BP: 108/59 SpO2:97% Intake and Output 7AM Yesterday to 7AM Today Intake and Output (Last 24 hours) Intake Oral Intake 760.00 Output Urine Voided 4200.00 Stool Count 2.00 Total Summary Total Intake 760.00 Total Output 4200.00 Fluid Balance -3440.00 Physical Exam General: AAOX3, NAD HEENT: Anicteric sclera, MMM Neck: Trachea midline, no JVD appreciated CVS: RRR, normal S1/S2, no murmurs/rubs/gallops Lung: CTAB, no wheezes/rhonchi/rales Abd: Soft, NT/ND Extrem: WWP, significant lymphedema Skin: Warm, Intact Neuro: AAOX3, spontaneous movement of all extremities Psych: Appropriate mood & affect Weight Dosing Weight: 136.5 kg (08/22/24) Dosing Weight: 150 kg (08/20/24) Medications Medications (33) Active Scheduled: (13) aspirin 81 mg EC 81 mg 1 tab(s), Oral, Daily atorvastatin 20 mg tablet 20 mg 1 tab(s), Oral, Daily budesonide 0.5 mg/2 mL Susp UD 0.5 mg 2 mL, Inhalation, qDayRT bumetanide 0.25 mg/1 mL 4 mL VIAL 4 mg 16 mL, IV Push, TID calcium carbonate 500 mg Chewable 500 mg 1 tab(s), Chewed, BID cholecalciferol 125 mcg capsule (Vit D3 5000 unit(s)) 125 mcg 1 cap(s), Oral, Damaso heparin 5,000 units/mL (1 mL) vial 5,000 unit(s) 1 mL, Subcutaneous, q8h ipratropium 0.02% (0.5mg/2.5mL) UD 500 mcg 2.5 mL, Inhalation, QIDRT levothyroxine 100 mcg tablet 100 mcg 1 tab(s), Oral, qDay multivitamin (Myadec) with minerals Therapeutic Multiple Vitamins with Minerals Tablet 1 tab(s), Oral, qDayM sodium biphosphate-sodium phosphate 19 gm-7 gm Enema 133 mL, Rectal, qDay spironolactone 25 mg tablet 25 mg 1 tab(s), Oral, qDayM tirzepatide 5 mg/0.5 mL subcutaneous solution 5 mg, Subcutaneous, Friday Continuous: (0) PRN: (20) acetaminophen 325 mg Tablet 650 mg 2 tab(s), Oral, q4h Al hydrox/Mg hydrox/simethicone 200-200-20 mg/5 mL Susp UD 30 mL, Oral, q4h albuterol - ipratropium 2.5 mg-0.5 mg/3 mL Inhal Jewell UD 3 mL, Inhalation, q4hRT bisacodyl 10 mg Suppository 10 mg 1 supp, Rectal, qDay dextrose 50% Solution Disp syringe 50 mL 25 gram(s) 50 mL, IV Push, AsDirected docusate sodium 100 mg Capsule 100 mg 1 cap(s), Oral, BID glucagon recombinant 1 mg 1 mg 1 mL, Intramuscular, AsDirected guaifenesin 100 mg/5 mL Liquid 120 mL 200 mg 10 mL, Oral, q4h magnesium hydroxide 8% Suspension 30 mL UD 30 mL, Oral, qHS magnesium hydroxide 8% Suspension 30 mL UD 30 mL, Oral, qHS magnesium sulfate 4 gram(s)/100mL PMX 4 g 100 mL, IV Piggyback, AsDirected magnesium sulfate 50% (500mg/mL) 6 g 12 mL, IV Piggyback, AsDirected magnesium sulfate PMX 2 g 50 mL, IV Piggyback, AsDirected ondansetron 2 mg/ 1 mL 2 mL INJ 4 mg 2 mL, IV Push, q4h polyethylene glycol 3350 - UD packet 17 gram(s) 15 mL, Oral, qDay potassium chloride (PMX) 20 mEq/100 mL 20 mEq 100 mL, IV Piggyback, AsDirected potassium chloride 20 mEq ER tablet 20 mEq 1 tab(s), Oral, AsDirected potassium chloride 20 mEq ER tablet 40 mEq 2 tab(s), Oral, AsDirected potassium chloride 20 mEq ER tablet 40 mEq 2 tab(s), Oral, AsDirected senna 8.6 mg Tablet 8.6 mg 1 tab(s), Oral, qHS Lab Results 08/24 10:15 WBC: 11.0 H Hgb: 12.5 Hct: 39.4 Platelet: 220 Neutrophil %: 70.7 Glucose Level: 102 Sodium Level: 140 Potassium Level: 3.8 BUN: 19.0 Creatinine Lvl (s): 0.50 08/23 16:08 Glucose Level: 83 Sodium Level: 143 Potassium Level: 4.8 BUN: 21.0 Creatinine Lvl (s): 0.54 08/23 06:23 WBC: 10.3 Hgb: 11.1 L Hct: 34.5 Platelet: 188 Neutrophil %: 60.9 Glucose Level: 82 Sodium Level: 140 Potassium Level: 3.8 BUN: 19.0 Creatinine Lvl (s): 0.62 EKG No qualifying data available. Assessment/Plan Orders: bumetanide(Bumex), 4 mg= 16 mL, IV Push, TID Echocardiogram Adult Follow up(Cardiac Echo Adult Follow up), 08/24/24 15:30:00 EDT, Routine, RV function, severe pulmonary hypertension, Physician to Read: [facility], Echo Contrast:Use if indicated and not contraindicated, Portable, Full Code, 136.185623 kg, [facility], CCU, 08/24/24 15:... Specialty Bed & Equipment, 08/24/24 12:05:00 EDT, Bariatric Recliner Chair, Weight: 136.5, Constant order Acute on chronic HFpEF Prader Willi Pulmonary hypertension [RVSP 78mmHg May 2024, suspected WHO group 3 and component of group 2] PEA arrest July 2024 Patient is a 44-year-old female, resident at skilled nursing, with medical history significant for HFpEF, Prader-Willi/intellectual disability, severe pulmonary hypertension thought to be secondary to group 3 and component of group 2, who presented after an outpatient office visit noted to have weight gain admitted for acute on chronic HFpEF. She went to see her primary dental floss packer on 08/17/2024 where they noted her weight to be increased from 309 pounds to 320 pounds. They increase the dose of Bumex to 2 mg twice daily, but her weight Increasing, so the Patient is admitted for CHF Exacerbation. Pt has been on IV bumex drip since 08/20 to 08/22, weight is down from 150kg on admission to 136.5 kgtoday. Patient does not prefer to be on IV bumex drip overnight as she needs to use the bathroom frequently. Will continue intermittent pushes IV bumex 4 mg TID V/Q negative for chronic VTE. Not a candidate for pulmonary hypertension meds as she has a component of group 2 as well. Check RV function via limited echo (pending) Will add Jardiance is no history of UTIs, patient denies UTI hx will verify with mother Pt's mother endorses she has been compliant with using AVAPS at [facility] Digitally Signed by AUGUST RIBERA MD on 08/24/2024 03:57 PM [id number] Note* Exam Date Time Procedure Performing Provider Status 08/23/24 3:14 PM NM Pulmonary Perfusi on w/ Vent Aerosol MADIE LESTER MD; Auth (Verified) [id number] ORIGINAL EXAMINATION: VENTILATION AND PERFUSION IMAGING OF THE LUNGS08/23/2024 3:15 pm TECHNIQUE: 6.5 millicuries of Tc99m MAA and 35.5 millicuries of Tc99m DTPA aerosol were utilized. COMPARISON: None CORRELATION: Chest radiograph dated August 23, 2024 HISTORY: Reason for Exam: check for chronic PE FINDINGS: No mismatched ventilation perfusion defects are identified. IMPRESSION: Pulmonary embolism absent (modified PIOPED II criteria). Interpreted by: Madie Lester MD Preliminary Report By: Madie Lester MD Electronically signed By Madie Lester MD Dictated Date: 08/23/2024 3:41:38 PM Prelim Date: 08/23/2024 3:44:31 PM Sign Date: 08/23/2024 3:44:31 PM Ordering Provider: [facility]06-16-2025 Note* Exam Date Time Procedure Performing Provider Status 08/23/24 1:17 PM XR Chest 2 Views LORI WESLEY DO; Auth (Verified) [id number] ORIGINAL EXAMINATION: TWO XRAY VIEWS OF THE CHEST 08/23/2024 1:18 pm COMPARISON: None HISTORY: ORDERING SYSTEM PROVIDED HISTORY: Reason for Exam: Abnormal breath sounds FINDINGS: Exam is limited secondary to patient body habitus. Cardiac contour is enlarged but stable. There appears to be improved central venous congestion and bilateral interstitial prominence and patchy hazy airspace opacities. There is mild residual patchy hazy airspace opacity within the right mid to lower lung. No large pleural effusion or pneumothorax. IMPRESSION: Limited exam but appears to be improving pulmonary edema pattern with mild residual patchy airspace opacities within the right mid to lower lung. Interpreted by: Lori Wesley Preliminary Report By: Lori Wesley Electronically signed By Lori Wesley Dictated Date: 08/23/2024 1:27:46 PM Prelim Date: 08/23/2024 1:29:39 PM Sign Date: 08/23/2024 1:29:39 PM Ordering Provider: [facility]06-15-2025 Note* Exam Date Time Procedure Performing Provider Status 08/22/24 7:[address] Thorax w/o Contrast TONO LANDERS DO; Auth (Verified) [id number] ORIGINAL EXAMINATION: CT OF THE CHEST WITHOUT CONTRAST 08/22/2024 7:18 am TECHNIQUE: CT of the chest was performed without the administration of intravenous contrast. Multiplanar reformatted images are provided for review. Automated exposure control, iterative reconstruction, and/or weight based adjustment of the mA/kV was utilized to reduce the radiation dose to as low as reasonably achievable. COMPARISON: CT chest attention pulmonary arteries 05/20/2024 HISTORY: ORDERING SYSTEM PROVIDED HISTORY: Reason for Exam: sob, lymph edema, heart failure, pulm htn, muscle weakness, hx Prader Willi syndrome pulmonary edema FINDINGS: Mediastinum: There is cardiomegaly with biventricular configuration. No pericardial effusion or mediastinal mass is identified. Thyroid gland is not enlarged. Lungs/pleura: Lungs show symmetric pneumatization. There is continued pulmonary vascular prominence and ground-glass alveolar disease in the right and left lower lobes. No significant pleural effusion is evident. No discrete mass lesion or nodularity is observed. Upper Abdomen: Limited images reveal no acute surgical process. There is loss of spatial and contrast resolution due to body size. Soft Tissues/Bones: Soft tissues are generous and causes beam hardening artifact throughout the procedure. Skeletal elements are intact and age-appropriate. IMPRESSION: 1. Cardiomegaly with pulmonary vascular congestion and ground-glass alveolar disease in the lower lobes. This could be secondary to pulmonary edema or atypical pneumonia. 2. No acute cardiopulmonary process identified. 3. Limited evaluation of the upper abdomen due to body size and beam hardening artifact from the patient's arms. Interpreted by: Tono Landers DO Preliminary Report By: Tono Landers DO Electronically signed By Tono Landers DO Dictated Date: 08/22/2024 9:30:00 AM Prelim Date: 08/22/2024 9:35:53 AM Sign Date: 08/22/2024 9:35:53 AM Ordering Provider: [facility]06-13-2025 Evaluation + Plan noteExtracted from: Title:History and Physical Author:OMKAR VARGAS MD Date:08/20/24 1. Acute on chronic HFpEF ex acerbation Patient presented as a transfer from skilled nursing because of weight gain, and failure of outpatient p.o. diuretics Please 330 pounds, weight in May following the PEA arrest was 300 pounds Plan Fluid restriction to 1500 mL/day Salt restricted diet Daily weight monitoring Accurate input output START Bumex drip at 0.5 CONTINUE spironolactone 25 mg p.o. daily 2. Pulmonary hypertension ECHO [05/14/2024]: EF 60 to 65%. RVSP 78. Likely from WHO 2+3 Plan start IV diuretics Will consider RHC after proper discussion with the family regarding goals of care once patient is close to euvolemia 3. History of PEA arrest 4. DACIA 5. class III obesity Can use CPAP at nighttime 6. Prader-Willi syndrome Addendum by JAMES CELIS on August 20, 2024 09:58:37 EDT I have personally seen, examined, and evaluated the patient on the encounter date. I have reviewed the fellow s documentation and agree with the fellow s findings and plan as documented, unless otherwise stated. A3 Future Appointments Appointment Date:09/07/2024 03:45:00 PM Scheduled Provider:MARCELINO FALK Location:[facility] Appointment Type:CV OV Appointment Date:09/28/2024 11:30:00 AM Scheduled Provider: Location:[facility] Appointment Type:CV OV CHF [facility] 06-13-2025 History and physical note Date of Service 08/20/2024 History of Present Illness 44-year-old female with PMH of Prader-Willi syndrome, severe pulmonary hypertension [likely WHO 2+3], recent cardiac arrest/PEA arrest [05/2024], chronic HFpEF [EF 60 to 65%; 05/2024], 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 Encounter, the patient was examined in room 352. She was alone. She went to see her primary dental floss packer on 08/17/2024 where they noted her weight to be increased from 309 pounds to 320 pounds. They increase the dose of Bumex to 2 mg twice daily, but her weight Increasing, so the Patient Is Admitted for CHF Exacerbation. Patient has Prader-Willi syndrome so, a proper History Cannot Be Obtained from Her Review of Systems ROS not possible because of the patient's underlying condition Physical Exam Vitals and Measurements HT: 147.3 cm WT: 150 kg BMI: 69.13 Weight Dosing Weight: 150 kg (08/20/24) General: AAOX3, NAD HEENT: Anicteric sclera, MMM Neck: Trachea midline, no JVD appreciated CVS: RRR, normal S1/S2, no murmurs/rubs/gallops Lung: CTAB, no wheezes/rhonchi/rales Abd: Soft, NT/ND Extrem: WWP, grade 3 4 pedal edema Skin: Warm, Intact Neuro: AAOX3, spontaneous movement of all extremities Psych: Appropriate mood & affect Lab Results No 36 Hour Lab Data Assessment/Plan 1. Acute on chronic HFpEF exacerbation Patient presented as a transfer from skilled nursing because of weight gain, and failure of outpatientp.o. diuretics Please 330 pounds, weight in May following the PEA arrest was 300 pounds Plan Fluid restriction to 1500 mL/day Salt restricted diet Daily weight monitoring Accurate input output START Bumex drip at 0.5 CONTINUE spironolactone 25 mg p.o. daily 2. Pulmonary hypertension ECHO [05/14/2024]: EF 60 to 65%. RVSP 78. Likely from WHO 2+3 Plan start IV diuretics Will consider RHC after proper discussion with the family regarding goals of care once patient is close to euvolemia 3. History of PEA arrest 4. DACIA 5. class III obesity Can use CPAP at nighttime 6. Prader-Willi syndrome Problem List/Past Medical History Ongoing Diastolic heart failure Prader-Willi syndrome Pulmonary hypertension Historical CHF (congestive heart failure) Procedure/Surgical History Echocardiogram Medications Home Medications (23) Active acetaminophen 650 mg = 2 tab(s), PRN, Oral, q4h acetaminophen 650 mg rectal suppository 650 mg = 1 supp, PRN, Rectal, q4h acetaminophen 650 mg rectal suppository 650 mg = 1 supp, PRN, Rectal, q4h Aldactone 25 mg oral tablet 25 mg = 1 tab(s), Oral, qDayM aluminum hydroxide-magnesium hydroxide 200 mg-200 mg/5 mL oral suspension 30 mL, Oral, q4h ammonium lactate 12% topical cream 1 cristian, Topical, qHS aspirin 81 mg oral delayed release tablet 81 mg = 1 tab(s), Oral, Daily atorvastatin 20 mg oral tablet 20 mg = 1 tab(s), Oral, Daily bisacodyl 10 mg rectal enema 10 mg = 1 EA, PRN, Rectal, qDay budesonide 0.5 mg/2 mL inhalation suspension 0.5 mg = 2 mL, Inhalation, qDay bumetanide 1 mg oral tablet 2 mg = 2 tab(s), Oral, BID calcium carbonate 500 mg (200 mg elemental calcium) oral tablet, chewable 500 mg = 1 tab(s), Chewed, BID EPINEPHrine 0.3 mg injectable kit 0.3 mg = 1 EA, PRN, Intramuscular, AsDirected Fleet Enema 1 EA, Rectal, qDay Glucagon Emergency Kit for Low Blood Sugar 1 mg injection 1 mg, PRN, Intramuscular, AsDirected guaiFENesin 10 mL, PRN, Oral, q4h ipratropium 500 mcg/2.5 mL inhalation solution 500 mcg = 2.5 mL, Inhalation, QID levothyroxine 100 mcg (0.1 mg) oral tablet 100 mcg = 1 tab(s), Oral, qDay Milk of Magnesia 8% oral suspension 2.4 gram(s) = 30 mL, PRN, Oral, qHS Senna 8.6 mg oral tablet 8.6 mg = 1 tab(s), PRN, Oral, qHS Therapeutic Multiple Vitamins with Minerals, Zinc and Elderberry oral tablet, chewable 1 tab, Chewed, qDay tirzepatide 5 mg/0.5 mL subcutaneous solution 5 mg, Subcutaneous, qWeek Vitamin D3 125 mcg (5000 intl units) oral capsule 125 mcg = 1 cap(s), Oral, qWeek Allergies Bee Stings Dilantin misc non-codified allergy phenytoin unknown Social History Alcohol Use: Never., 08/17/2024 Nutrition/Health Caffeine intake amount: 3 cups a day., 08/17/2024 Substance Abuse Use: Never., 08/17/2024 Tobacco Nicotine Use: Never (less than 100 in lifetime)., 08/17/2024 Family History Coronary artery disease: Grandparent. Health Status Family Member(s) Immunizations No qualifying data available. Code Status Code Status - Ordered -- 08/20/24 2:32:00 EDT, Full Code, Constant Order Digitally Signed by OMKAR VARGAS MD on 08/20/2024 07:49 AM [id number] Hospital Progress note Respiratory Therapy Evaluation Entered On: 08/20/2024 9:02 EDT Performed On: 08/20/2024 9:01 EDT by Tello Austin RRT Respiratory Therapy Evaluation Pulmonary Status : Chronic pulmonary disease Surgical Status : No surgery Chest X-Ray : Chronic radiological changes Respiratory Pattern (RT) : RR 10-20 BPM, Regular pattern Breath Sounds (RT) : Diminished due to poor inspiratory effort Cough (RT) : Strong, non-productive Level of Activity : Ambulatory with assistance Mental Status : Alert, oriented and cooperative Respiratory Therapy Evaluation Score : 6 RT Evaluation Steps : Chart review completed, Assessment completed: RR, HR, Auscultation, Cough, Patient Interview completed Respiratory Evaluation Triage Score : (11-15) Freq: QIDRT & Albuterol Q2 RT prn RT Assessment [Frequency/Schedule] : Change medication frequency to home regimen Tello Austin RRT - 08/20/2024 9:01 EDT Digitally Signed by Tello Austin [employer]UST[employer]ER [employer]UTIONS REPRESENTATIVE on 08/20/2024 09:01 AM [id number] Note* Exam Date Time Procedure Performing Provider Status 08/20/24 5:58 AM XR Chest 1 View MOE JARQUIN MD; Auth (Verified) [id number] ORIGINAL EXAMINATION: ONE XRAY VIEW OF THE CHEST 08/20/2024 5:59 am COMPARISON: 05/30/2024 HISTORY: ORDERING SYSTEM PROVIDED HISTORY: Reason for Exam: CHF FINDINGS: The heart size is enlarged, but stable. There are mixed interstitial and alveolar opacities bilaterally. There is no significant change in aeration. No large pleural effusion or pneumothorax. IMPRESSION: No significant change in aeration. Interpreted by: Moe Jarquin MD Preliminary Report By: Moe Jarquin MD Electronically signed By Moe Jarquin MD Dictated Date: 08/20/2024 6:16:26 AM Prelim Date: 08/20/2024 6:17:02 AM Sign Date: 08/20/2024 6:17:02 AM Ordering Provider: OMKAR [facility]06-13-2025 History and physical note Date of Service 08/20/2024 History of Present Illness 44-year-old female with PMH of Prader-Willi syndrome, severe pulmonary hypertension [likely WHO 2+3], recent cardiac arrest/PEA arrest [05/2024], chronic HFpEF [EF 60 to 65%; 05/2024], 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 Encounter, the patient was examined in room 352. She was alone. She went to see her primary dental floss packer on 08/17/2024 where they noted her weight to be increased from 309 pounds to 320 pounds. They increase the dose of Bumex to 2 mg twice daily, but her weight Increasing, so the Patient Is Admitted for CHF Exacerbation. Patient has Prader-Willi syndrome so, a proper History Cannot Be Obtained from Her Review of Systems ROS not possible because of the patient's underlying condition Physical Exam Vitals and Measurements HT: 147.3 cm WT: 150 kg BMI: 69.13 Weight Dosing Weight: 150 kg (08/20/24) General: AAOX3, NAD HEENT: Anicteric sclera, MMM Neck: Trachea midline, no JVD appreciated CVS: RRR, normal S1/S2, no murmurs/rubs/gallops Lung: CTAB, no wheezes/rhonchi/rales Abd: Soft, NT/ND Extrem: WWP, grade 3 4 pedal edema Skin: Warm, Intact Neuro: AAOX3, spontaneous movement of all extremities Psych: Appropriate mood & affect Lab Results No 36 Hour Lab Data Assessment/Plan 1. Acute on chronic HFpEF exacerbation Patient presented as a transfer from skilled nursing because of weight gain, and failure of outpatientp.o. diuretics Please 330 pounds, weight in May following the PEA arrest was 300 pounds Plan Fluid restriction to 1500 mL/day Salt restricted diet Daily weight monitoring Accurate input output START Bumex drip at 0.5 CONTINUE spironolactone 25 mg p.o. daily 2. Pulmonary hypertension ECHO [05/14/2024]: EF 60 to 65%. RVSP 78. Likely from WHO 2+3 Plan start IV diuretics Will consider RHC after proper discussion with the family regarding goals of care once patient is close to euvolemia 3. History of PEA arrest 4. DACIA 5. class III obesity Can use CPAP at nighttime 6. Prader-Willi syndrome Problem List/Past Medical History Ongoing Diastolic heart failure Prader-Willi syndrome Pulmonary hypertension Historical CHF (congestive heart failure) Procedure/Surgical History Echocardiogram Medications Home Medications (23) Active acetaminophen 650 mg = 2 tab(s), PRN, Oral, q4h acetaminophen 650 mg rectal suppository 650 mg = 1 supp, PRN, Rectal, q4h acetaminophen 650 mg rectal suppository 650 mg = 1 supp, PRN, Rectal, q4h Aldactone 25 mg oral tablet 25 mg = 1 tab(s), Oral, qDayM aluminum hydroxide-magnesium hydroxide 200 mg-200 mg/5 mL oral suspension 30 mL, Oral, q4h ammonium lactate 12% topical cream 1 cristian, Topical, qHS aspirin 81 mg oral delayed release tablet 81 mg = 1 tab(s), Oral, Daily atorvastatin 20 mg oral tablet 20 mg = 1 tab(s), Oral, Daily bisacodyl 10 mg rectal enema 10 mg = 1 EA, PRN, Rectal, qDay budesonide 0.5 mg/2 mL inhalation suspension 0.5 mg = 2 mL, Inhalation, qDay bumetanide 1 mg oral tablet 2 mg = 2 tab(s), Oral, BID calcium carbonate 500 mg (200 mg elemental calcium) oral tablet, chewable 500 mg = 1 tab(s), Chewed, BID EPINEPHrine 0.3 mg injectable kit 0.3 mg = 1 EA, PRN, Intramuscular, AsDirected Fleet Enema 1 EA, Rectal, qDay Glucagon Emergency Kit for Low Blood Sugar 1 mg injection 1 mg, PRN, Intramuscular, AsDirected guaiFENesin 10 mL, PRN, Oral, q4h ipratropium 500 mcg/2.5 mL inhalation solution 500 mcg = 2.5 mL, Inhalation, QID levothyroxine 100 mcg (0.1 mg) oral tablet 100 mcg = 1 tab(s), Oral, qDay Milk of Magnesia 8% oral suspension 2.4 gram(s) = 30 mL, PRN, Oral, qHS Senna 8.6 mg oral tablet 8.6 mg = 1 tab(s), PRN, Oral, qHS Therapeutic Multiple Vitamins with Minerals, Zinc and Elderberry oral tablet, chewable 1 tab, Chewed, qDay tirzepatide 5 mg/0.5 mL subcutaneous solution 5 mg, Subcutaneous, qWeek Vitamin D3 125 mcg (5000 intl units) oral capsule 125 mcg = 1 cap(s), Oral, qWeek Allergies Bee Stings Dilantin misc non-codified allergy phenytoin unknown Social History Alcohol Use: Never., 08/17/2024 Nutrition/Health Caffeine intake amount: 3 cups a day., 08/17/2024 Substance Abuse Use: Never., 08/17/2024 Tobacco Nicotine Use: Never (less than 100 in lifetime)., 08/17/2024 Family History Coronary artery disease: Grandparent. Health Status Family Member(s) Immunizations No qualifying data available. Code Status Code Status - Ordered -- 08/20/24 2:32:00 EDT, Full Code, Constant Order Digitally Signed by OMKAR VARGAS MD on 08/20/2024 07:49 AM [facility] [id number] Note* Exam Date Time Procedure Performing Provider Status 08/20/24 2:29 AM Electrocardiogram - EKG - CV MARITZA SHORT MD; Auth (Verified) ECG Final Report SINUS RHYTHM BORDERLINE LEFT AXIS DEVIATION ANTEROSEPTAL INFARCT, AGE INDETERMINATE Electronic Signature: MARITZA SHORT MD 08/20/2024 17:08:10 [facility] [id number] NotePatient Outreach (INTMWS) SIA ABDUL ([id number]) 1980 F Date Time Provider Department 08/10/24 MARILEE THAKUR INTMWS During your visit today, we recorded the following information about you: Allergies As of Date: 08/10/2024 Noted Allergy Reaction BEE STING 02/28/2023 10 - Anaphylaxis BUMEX (BUMETANIDE) 03/12/2024 6 - Diarrhea 14 - Other: See Comments Comments: chula PARMAR (PHENYTOIN SODIUM EXTEND*01/28/2006 Date Reviewed: 05/10/2024 Reviewed by: María Avila MA - Fully Assessed Visit Diagnosis:Encounter for screening mammogram for breast cancer [Z12.31] Order(s):FELISA ROMA JOHNSON [[id number]] Order #: [id number] FUTURE Prescriptions as of 09/10/2024 - fluticasone (FLONASE) 50 mcg/actuation nasal spray INSTILL 2 SPRAYS IN EACH NOSTRIL DAILY - fluticasone-vilanterol (BREO ELLIPTA) 100-25 mcg/dose inhaler Inhale 1 inhalation as instructed once daily. - wmrxacz-bzzxzizif-xtsynzp D3 (OYSTER SHELL CALCIUM-VITAMIN D) 500 mg-5 [...] as instructed two times a day. - diphenoxylate-atropine (LOMOTIL) 2.5-0.025 mg per tablet [...] 1 tablet by mouth once daily. - Llwka-6-RPE-EPA-Fish Oil 1,000 mg (120 mg-180 mg) cap [...] 4pm Dx:Q87.1 Problem List As Of Date 08/10/2024 Noted Resolved Other malaise and fatigue [R53.81, [...] BMI 45.0-49.9, adult (HCC) [Z68.42] 02/09/2015 03/19/2023 Hypo (more content not included)...[facility]04-29-2025 NoteHNO ID: [id number] Author: JAILENE KIRKLAND MA Service: ? Author Type: Transverse Abdominal Muscle Nurse Type: Progress Notes Filed: 07/06/2024 09:26 Note [...] Jailene Kirkland MA July 06, 2024 8:11 [facility]04-29-2025 History of Present illness Narrative* Jailene Kirkland MA - 07/06/2024 8:11 AM EDT POPULATION HEALTH NAVIGATION OUTREACH Action/FYI Topic Due [...] 06, 2024 8:11 AM [facility] NotePatient Outreach (NETNAV) SIA ABDUL ([id number]) 1980 F Date Time Provider Department 07/06/24 JAILENE KIRKLAND During your visit today, we recorded the following information about you: Jailene Kirkland MA 07/06/2024 9:26 AM Signed POPULATION HEALTH NAVIGATION OUTREACH Action/FYI Topic Due [...] chula DILANTIN (PHENYTOIN SODIUM EXTEND*01/28/2006 Date Reviewed: 05/10/2024 Reviewed by: María Avila MA - Fully Assessed Reason for Visit: Population Health Navigation Outreach [[id number]] [facility] Prescriptions as of 07/06/2024 - upamrej-vhdljcssx-yecngfd D3 (OYSTER SHELL CALCIUM-VITAMIN D) 500 mg-5 [...] 1 tablet by mouth once daily. - Elcmf-3-JII-EPA-Fish Oil 1,000 mg (120 mg-180 mg) cap [...] rhinitis [J30.9] SLEEP APNEA (more content not included)...[facility]03-27-2025 Telephone encounter Note* Telephone Encounter - Pepper Walsh RN - 06/03/2024 4:10 PM EDT Clarence Calderon calling with [facility] to update provider that due to patient having a prolonged stay in hospital, there are discontinuing her home care nursing and therapy orders at thistime. Pepper Walsh RN [facility]03-27-2025 Miscellaneous Notes* Telephone Encounter - Pepper Walsh RN - 06/03/2024 4:10 PM EDT Clarence Calderon calling with [facility] to update provider that due to patient having a prolonged stay in hospital, there are discontinuing her home care nursing and therapy orders at thistime. Pepper Walsh RN [facility] Hospital Discharge instructions Patient Education 05/30/2024 14:59:15 Heart Failure [...] symptoms. Follow these instructions at home: Take zfdl-xgs-qzjywaj and prescription medicines only as told by your health care provider. Weigh yourself daily. Your target weight is lb ( kg). ?Call your health care provider if you gain more than lb ( kg) in a day, or more than lb ( kg) in one week. Eat a heart-healthy diet. Work with a diet and production control specialist (dietitian) to create an eatingplan that is best for you. Keep all follow-up visits as told by your health care provider. This is important. Where to find more information [place] [employer]: www.heart.org Summary Follow the action [...] 04/05/2017 Document Revised: 02/06/2018 Document Reviewed: 04/05/2017 Global Service Bureau Patient Education 2020 Bouncefootball. Follow Up Care 05/12/2024 22:43:19 With:Discharge to [facility], 2pm, Address:Unknown When:1-2 days With:MARILEE THAKUR MD Address: [address] [place] [address]- When:Within 4 Week(s) With:KEELY ORDONEZ MD Address: [address] [address] [phone] When:Within 4 Week(s) With:FRANKLYN STAPLETON MD Address: [address] [facility] [address] [place] [address]- [phone] When:Within 4 Week(s) With:ANSELMO FALK MD Address: [address] [place] [address] [address] [facility] [place] [place] [address]- [phone] When:06/04/2024 13:45:00 [facility] 03-23-2025 Note Discharge Instructions Thank you for allowing [facility] to assist you with your healthcare needs. The following is importantdischarge information regarding your hospital visit. Your Diagnosis [...] Up 06/04/2024 01:45 PM EDT MARCELINO FALK [facility] Confirmed CV OV CHF 06/22/2024 10:30 AM EDT [facility] Confirmed Follow Up Appointments Follow Up with Discharge to [facility], 2pm, When:Within 1-2 days Follow Up with MARILEE THAKUR MD When:In 4 weeks Where:[address] [place] [address]- Follow Up with KEELY ORDONEZ MD When:In 4 weeks Where:[address] [place] [address] [phone] Follow Up with FRANKLYN STAPLETON MD When:In 4 weeks Where:[address] [facility] [address] [place] [address] [phone] Follow Up with ANSELMO FALK MD When:06/04/2024 01:45 PM EDT Where:[address] [facility] [place] [address]- [phone] The Following Activity and Diet Have Been [...] withyour home medications. What How Much When Why [...] symptoms. Follow these instructions at home: Take eakc-zws-pwfrxca and prescription medicines only as told by your health care provider. Weigh yourself daily. Your target weight is lb ( kg). ? Call your health care provider if you gain more than lb ( kg) in a day, or more than lb ( kg) in one week. Eat a heart-healthy diet. Work with a diet and production control specialist (dietitian) to create an eatingplan that is best for you. Keep all follow-up visits as told by your health care provider. This is important. Where to find more information [place] [employer]: www.heart.org Summary Follow the action [...] 04/05/2017 Document Revised: 02/06/2018 Document Reviewed: 04/05/2017 ElsePatient Engagement Systems Patient Education 2020 [employer]. Additional Information VACCINATE! IT SAVES LIVES! Members of the community who have not yet received the COVID-19 vaccine and would like to receive it can visit one of [facility] vaccine clinics. There are many vaccine clinic locations within the [facility]. For locations and available times, please visit https://gettheshot.coronavirus.[place].gov/. It is important to note that some COVID mobile vaccine clinics are held outdoors and may be canceled in rainy or stormy conditions. To learn more about pediatric vaccinations (ages 5-11), we invite you to visit the [facility] webpage. https://www.[facility].org/pages/5553-Wqfdx-Cctcobmfcgq-Hfgenuonbz-Giwus-Gyp stions.htmlTo learn more about the COVID-19 vaccine, we invite you to visit the CDC website for a list of frequently asked questions.https://www.cdc.gov/coronavirus/2019-ncov/vaccines/faq.html [facility] Patient Portal Access Instructions: Stay connected with your healthcare team and access your personal medical information anytime with the [facility] Patient Portal. Please follow the directions below to create your IWT account: 1.Access the email account you provided upon registration to the hospital/physician office.2.Look for an invitation email from [facility].3.Open the email and access the invitation link: AcceptInvitation to [facility].4.Fill in the required perez to create your account. To access your account, visit Abyz/ShowNearbyt. Click the blue button labeled Access Patient Portal and then log in with the username and password that you created in the steps above. You will be able to view your test results, lab results, a summary of your visits, upcoming appointments and more. There is also a convenient messaging option where you can send secure messages to your WaveRxvider. In addition, you will have the ability to download any documents or summaries to your computer and/or send the information securely to a physician. Remember that your healthcare information is confidential, so carefully consider who you will allowto register on the [facility] Patient Portal for access to your information. You can also access the [facility] Patient Portal on the [facility] cristian. Simply click on Patient Portal and then log into your account. If you would like to receive a full copy of your medical records, please contact the [facility] Medical Records Department by calling [phone], Friday through Friday between 8 a.m. and [...] Call your local pharmacy or go to http://bit.ArtVenue/0H1Il9c to find one close to you.3.Make use of household items: Use cat litter or old coffee grounds to dispose medications if other options arenot available. Mix your drugs with these household products, seal them in an airtight container andthrow it into the garbage. Call [facility]: [phone] to be sure your drugs can be [...] aware that I should contact my doctor. Patient/Financial Services Education Consultant Signature: Date/Time: Relationship to Patient: Witness Name/Signature: Date/Time: [facility] [id number] Discharge summary Date of Service 05/30/24 Discharge [...] Prader-Willi, and intellectual disability who presented to [facility] ED on 05/12/24 after having increased [...] been previously [facility]ub[facility]. [facility]. More recently, Patient was discharged 05/05 after treatment for volume overload secondary to heart failure exacerbation. Patient established with dental floss packer Dr. Isi France. Initial lab work showed a pH of 7.527, CO2 of 53, O2 to 78, bicarb of 43 after intubation. CBC showed leukocytosis 17.2 with left shift. UA showed small leukocyte esterase, trace bacteria. CMP showedelevated bicarb 43, creatinine of 1.20, hypoalbuminemia at [...] CHF. There are areas confluent with groundglass opacityand bronchial thickening in the lungs which could [...] her pneumonia, patient was on azithromycin from 05/16/2024- 05/22/2024 for mycoplasma. Also status post 4 days Rocephin on admission. Due to the severity of her hospitalization and evidence of macrolide resistance developing elsewhere, S/p doxycycline for another 7 days to completean extended 14-day course for mycoplasma. Currently not on antibiotics. -> With regards to Prader-Willi syndrome, no pharmacologic agent has been shown to help control appetite or binge eating. GLP-1's have been used occasionally but are not well studied. Patient should be followed closely as an outpatient for growth hormone deficiencies, hypogonadism, diabetes (A1c5.3 this visit), normal TSH this visit, as they are at higher risk for pituitary dysfunction. Additionally she is at high risk for sleep disorders (already planning on sleep study via pulmonology as outpatient). Patient should establish with a Prader- Willi specific treatment center if possible at [facility]. For now okay to start GLP-1 if mother brings this medication in from outside. (She was seeing a computer operator as an outpatient who recommended starting a GLP-1) otherwise 1000-calorie diet as prescribed by her computer operator. Allergies Bee Stings Dilantin misc non-codified allergy Consults Consult to Physician - Ordered -- 05/15/24 14:44:00 EST, MAVIS MASON MD, Routine, RHF, pulm htn Consult to Physician - Ordered -- 05/17/24 20:09:00 EDTKELLE ASHISH MD, Routine, Hypoxia, pulmonary edema, mycoplasma pneumonia.Pt was in ICU and pulm recommended pulmonary follow-up on floor. Consult to Physician - Ordered -- 05/18/24 0:52:00 ISABELLA BLUE ATAUL MD, Routine, PHTN Consult to Physician - [...] Result Date: May 25, 2024 Verified By: Alyse_VANDA turner CLINICAL STATEMENT: IMPRESSION: Stable examination and stable [...] 62 RR: 23 (Total) BP: 121/74 SpO2: 92%WT: 141.1 kg Weight Current Weight Dosing Weight: 138.6 kg (05/26/24) Current Weight: 141.1 kg (05/30/24) Dosing Weight: 140.2 kg (05/25/24) Current Weight: 140.6 kg (05/29/24) See today's progress note Code Status Code Status - Ordered -- 05/13/24 1:22:00 EST, Full Code, Constant Order Admission Date 05/13/2024 Discharge Date 05/30/2024 Patient Instructions - Continue metoprolol, spironolactone, Bumex, atorvastatin, aspirin for guideline directed therapy.Further GDMT as outpatient. Follow-up with cardiology as outpatient. -Continue budesonide/ipratropium, guaifenesin for pulmonary hygiene. -Continue 1000-calorie diet for weight loss -Continue AVAPS for carbon dioxide retention. Follow-up with pulmonology as outpatient -Continue to follow-up with endocrinology as outpatient. Medications New Prescription [id number] Milligram by mouth every 6 hours as needed Pain, scale 1-3. atorvastatin (atorvastatin 20 mg oral tablet)1 tab(s) by mouth every day. Refills: 0. budesonide (budesonide 0.25 mg/2 mL inhalation suspension)2 Milliliter by inhalation two (2) times a day for 30 Days. Refills: 0. bumetanide (bumetanide 1 mg oral tablet)1 tab(s) by mouth two (2) times a day for 30 Days. Refills:0. docusate-senna (Senokot S 50 mg-8.6 mg oral tablet)1 tab(s) by mouth two (2) times a day. Refills: 0. guaiFENesin (guaiFENesin 600 mg oral tablet, extended release)1 tab(s) by mouth two (2) times a dayfor 14 Days. Refills: 0. ipratropium (ipratropium 500 [...] MARILEE THAKUR MD When:In 4 weeks Where:[address] [place] [address]- Follow Up with KEELY ORDONEZ MD When:In 4 weeks Where:[address] [place] [address] [phone] Follow Up with FRANKLYN STAPLETON MD When:In 4 weeks Where:[address] [facility] [address] [place] [address]- [phone] Follow Up with Discharge to [facility], , 4pm When:Within 1-2 days Follow Up with ANSELMO FALK MD When:06/04/2024 01:45 PM EDT Where:[address] [place] [address] [address] [facility] V[facility] [place] [address]- [phone] Follow Up Appointments No qualifying data available. [...] MISTY HADDAD DO on 05/30/2024 09:29 AM [id number] Note Date of Service 05/30/2024 Chief Complaint [...] 62 RR: 23 (Total) BP: 121/74 SpO2: 92%WT: 141.1 kg Intake and Output 7AM Yesterday [...] Result Date: May 25, 2024 Verified By: Alyse_VANDA turner CLINICAL STATEMENT: IMPRESSION: Stable examination and stable [...] her pneumonia, patient was on azithromycin from 05/16/2024- 05/22/2024 for mycoplasma.Also status post 4 days Rocephin on admission. [...] but are not well studied. Patient should befollowed closely as an outpatient for growth hormone deficiencies, hypogonadism, diabetes (A1c 5.3 this visit), normal TSH this visit, as they are at higher risk for pituitary dysfunction. Additionally she is at high risk for sleep disorders (already planning on sleep study via pulmonology as outpatient). Patient should establish with a Prader- Willi specific treatment center if possible at a large [place]. For now okay to start GLP-1 if mother brings this medication in from outside. Ot herwise 1000-calorie diet as prescribed by her computer operator. Level of Care Indication SD monitor (other: specify in note) DVT Prophylaxis Heparin SQ Maintenance IVF Indication NA / No maintenance IVF Indwelling Urinary Catheter Indication NA No indwelling catheter Timeline of Discharge LTAC pending availability. Anticipated DC Disposition tissue coordinator acute care / [facility] Signed by MISTY HADDAD DO on 05/30/2024 08:49 AM [facility] [id number] Pulmonary Progress note Date of Service 05/29/2024 Subjective Appears [...] history of Prader-Willi syndrome resident at the skilled nursing who was admitted with mixed respiratory failure [...] FRANKLYN STAPLETON MD on 05/29/2024 04:45 PM [facility] [id number] Note Date of Service 05/29/24 Chief Complaint Sia Abdul is a 43 year old female with PMH of HFpEF, Prader-Willi, and intellectual disability who presented to [facility] ED on 05/12/24 after having increased [...] been previously intubated. She was transferred to [facility] for ongoing care on 05/13/2024. More recently, Patient was discharged 05/05 after treatment for volume overload secondary to heart failure exacerbation. Patient established with dental floss packer Dr. Isi France. Initial lab work showed a pH of 7.527, CO2 of 53, O2 to 78, bicarb of 43 after intubation. CBC showed leukocytosis 17.2 with left shift. UA showed small leukocyte esterase, trace bacteria. CMP showedelevated bicarb 43, creatinine of 1.20, hypoalbuminemia at [...] CHF. There are areas confluent with groundglass opacityand bronchial thickening in the lungs which could [...] Her mother requested a bed at the [place] location which does not have any availability. Therefore patient is pending bed. Subjective Patient seen and examined. About the same as yesterday. She was eating without difficulty. Does notcomplain of any shortness of breath. No complaints [...] Result Date: May 25, 2024 Verified By: GhassanVANDA turner CLINICAL STATEMENT: IMPRESSION: Stable examination and stable [...] her pneumonia, patient was on azithromycin from 05/16/2024- 05/22/2024 for mycoplasma.Also status post 4 days Rocephin on admission. [...] but are not well studied. Patient should befollowed closely as an outpatient for growth hormone deficiencies, hypogonadism, diabetes (A1c 5.3 this visit), normal TSH this visit, as they are at higher risk for pituitary dysfunction. Additionally she is at high risk for sleep disorders (already planning on sleep study via pulmonology as outpatient). Patient should establish with a Prader- Willi specific treatment center if possible at a large [place]. For now okay to start GLP-1 if mother brings this medication in from outside. Ot herwise 1000-calorie diet as prescribed by her computer operator. Level of Care Indication SD monitor (other: specify in note) DVT Prophylaxis Heparin SQ Maintenance IVF Indication NA / No maintenance IVF Indwelling Urinary Catheter Indication NA No indwelling catheter Timeline of Discharge LTAC pending availability. Anticipated DC Disposition half-way acute care / [facility] Signed by MISTY HADDAD DO on 05/29/2024 01:42 PM [facility] [id number] Pulmonary Progress note Date of Service 05/28/2024 Subjective Clinically appears to be doing well. Denies any shortness of breath or wheezing or chest pain. Oxygen 3 L/min by nasal cannula saturating 97 to 98%. Using AVAPS at night. The patient is a 43-year-old black female with history of Prader-Willi syndrome resident at the skilled nursing who was admitted with mixed respiratory failure [...] FRANKLYN STAPLETON MD on 05/28/2024 05:29 PM [facility] [id number] Note Date of Service 05/28/2024 Subjective Patient [...] however patient can be weaned off down to92% As per pneumonia patient was on azithromycin [...] MISTY HADDAD DO on 05/28/2024 06:40 PM [facility] [id number] Pulmonary Progress note Date of Service 05/27/2024 Subjective Patient [...] Result Date: May 25, 2024 Verified By: Contributor_system JUVESaud CLINICAL STATEMENT: IMPRESSION: Stable examination and [...] PATITO JEFFRIES MD on 05/27/2024 02:44 PM [facility] HospitalUrdxashm55-64-0029 Note* Exam Date Time Procedure Performing Provider Status 05/27/24 9:08 AM US Abdomen Complete KYRIE LICEA MD; Auth (Verified) [id number] ORIGINAL EXAMINATION: COMPLETE ABDOMINAL ULTRASOUND05/27/2024 9:08 am [...] Sign Date: 05/27/2024 9:26:24 AM Ordering Provider: MISTY [facility]03-19-2025 Note Date of Service 05/26/2024 Chief Complaint Asked to see patient again due to worsening hypercapnia Subjective This patient is a 43-year-old white female with history of Prader-Willi syndrome, resident at [facility]. She was initially admitted with mixed hypercapnic and hypoxic respiratory failure needing intubation. She was diagnosed with exacerbation of heart failure and was treated with diuretics. She was recently hospitalized at [facility] with heart failure and according to [...] - ipratropium 2.5 mg-0.5 mg/3 mL Inhal Ejwell UD 3 mL, Inhalation, q2hRT benzocaine-menthol (Cepacol [...] FRANKLYN STAPLETON MD on 05/26/2024 06:47 PM [facility] [id number] NoteHNO ID: [id number] Author: AAKASH MANUEL RN Service: ? Author [...] Aakash Manuel RN May 26, 2024 3:37 [facility]03-19-2025 History of Present illness Narrative* Aakash Manuel RN - 05/26/2024 3:33 PM EDT CDM ENROLLMENT Provider Action / FYI: Mom, [...] 26, 2024 3:37 PM [facility] NotePatient Outreach ([facility]) SIA ABDUL ([id number]) 1980 F Date Time Provider Department 05/26/24 AAKASH MANUEL [facility] During your visit today, we recorded the following information about you: Aakash Manuel RN 05/26/2024 3:50 PM Signed CDM ENROLLMENT Provider Action / FYI: Mom, validated caregiver for patient advised patient currently in hospital. Patient identified by name and date of . Discussed care with mother. Program Details Chronic Disease Management Status: Deferred Start Date: 05/11/2024 Responsible Staff: Aakash Manuel, RN Support and Services: Assessments No documentation [...] Fully Assessed Prescriptions as of 05/26/2024 - nqdbxao-cyuakdpsi-tqmcsvd D3 (OYSTER SHELL CALCIUM-VITAMIN D) 500 mg-5 [...] 1 tablet by mouth once daily. - Okdua-8-BES-EPA-Fish Oil 1,000 mg (120 mg-180 mg) cap [...] content not included)...[facility]03-18-2025 Note* Exam Date Time Procedure Performing Provider Status 05/25/24 1:38 PM XR Chest 1 View Contributor_system, FU JI; Auth (Verified) [id number] ORIGINAL EXAMINATION: ONE XRAY VIEW OF THE [...] examination and stable support apparatus. Interpreted by: Moe Johnson MD Preliminary Report By: Moe Johnson MD Electronically signed By Moe Johnson MD Dictated Date: 05/25/2024 9:41:46 PM Prelim Date: 05/25/2024 9:45:43 PM Sign Date: 05/25/2024 9:45:43 PM Ordering Provider: [facility]03-17-2025 Cardiology Consult note Date of Service 05/24/2024 [...] LIEN HARRISON MD on 05/24/2024 02:21 PM [facility] HospitalVkrnglqg75-66-0400 Cardiology Consult note Date of Service 05/24/2024 [...] Result Date: May 13, 2024 Verified By: QAUN JEONG MD CLINICAL STATEMENT: IMPRESSION: 1. Endotracheal [...] LIEN HARRISON MD on 05/24/2024 02:21 PM [facility] HospitalGgkblbuz30-88-8325 Note* Exam Date Time Procedure Performing Provider Status 05/24/24 10:16 AM Electrocardiogram - EKG - CV PRANAV EATON MD; Auth (Verified) ECG Final Report SINUS RHYTHM ABNORMAL T, CONSIDER ISCHEMIA, ANTEROLATERAL LEADS Electronic Signature: PRANAV DAVE MD 05/26/2024 08:44:31 [facility] [id number] Cardiology Progress note Subjective No new complaint [...] BiPAP settings prior to transferring back to skilled nursing. Initially skilled nursing was not willing to accept the patient [...] RADHA ROSARIO MD on 05/23/2024 02:19 PM [facility] HospitalKgjqxlng79-70-9315 Cardiology Progress note Date of Service 05/21/2024 [...] may require dobutamine assisted diuresis. TTE on 05/14/2024 showed EF of 60 to 65% with [...] BiPAP settings prior to transferring back to skilled nursing. Initially skilled nursing was not willing to accept the patient [...] FILOMENA LOUIS MD on 05/21/2024 04:24 PM [facility] HospitalQpudtobl98-54-3528 Cardiology Progress note Date of Service 05/22/2024 [...] BiPAP settings prior to transferring back to skilled nursing. Initially skilled nursing was not willing to accept the patient [...] FREDDIE COLEY MD on 05/22/2024 12:18 PM [facility] HospitalQnmtcfqg44-50-2956 Consult note Date of Service May 22, 2024 Reason for Consultation Transfer of service Referring Physician Dr James Celis History of Present Illness A 43 years old female with past medical history significant for Prader-Willi syndrome, intellectualdisability, HFpEF, DACIA, pulmonary hypertension presented to [facility] on May 13 with a concern [...] sleep apnea/OHS, pulmonology consulted theyrecommended AVAPS, initially skilled nursing was not willing to accept the patient [...] of azithromycin today Note was written using theeventwall district agent software. Some of the meaning of the words and sentences might have changed during district agent, if there was ever some confusion about [...] KAYLAN LUGO MD on 05/22/2024 02:33 PM [facility] HospitalTnxeiluz32-14-1807 Cardiology Progress note Date of Service 05/22/2024 [...] BiPAP settings prior to transferring back to skilled nursing. Initially skilled nursing was not willing to accept the patient [...] FREDDIE COLEY MD on 05/22/2024 12:18 PM [facility] HospitalPskeqjdg30-51-3206 Cardiology Progress note Date of Service 05/21/2024 [...] BiPAP settings prior to transferring back to skilled nursing. Initially skilled nursing was not willing to accept the patient [...] FILOMENA LOUIS MD on 05/21/2024 04:24 PM [facility] HospitalLepscyli03-20-6839 Note* Exam Date Time Procedure Performing Provider Status 05/21/24 1:25 PM VL Venous US/Doppler Both Legs(for DVT) RAVI SALDAÑA MD; Auth (Verified) [facility] HospitalVnsceopt54-10-1325 Heart failure Progress note Date of Service 05/20/24 Subjective No new complaints Intake and Output 7AM Yesterday to 7AM Today Intake and Output (Last 24 hours) Intake Oral Intake 1120.00 Output Urinary Catheter Output: 3100.00 Total Summary Total Intake 1120.00 Total Output 3100.00 Fluid Balance -1980.00 Physical Exam Alert and oriented x 3 [...] medical history HFpEF, Prader-Willi/intellectual disability presented to [facility] ED 05/12/2024 with increased shortness of breath. Initial rhythm was PEA and 2 rounds of CPR completed prior to ROSC without any medication. Intubated. Transferred to [facility]U. Upon admissionto MICU, CXR showed pulmonary [...] FILOMENA LOUIS MD on 05/20/2024 04:18 PM [facility] [id number] Note* Exam Date Time Procedure Performing Provider Status 05/20/24 6:[address] Angiography Chest w/ Contrast MIKEY FOWLER MD; Auth (Verified) [id number] ORIGINAL EXAMINATION: CTA OF THE CHEST 05/20/2024 [...] Sign Date: 05/20/2024 6:38:01 PM Ordering Provider: [facility]03-13-2025 Heart failure Progress note Date [...] medical history HFpEF, Prader-Willi/intellectual disability presented to [facility] ED 05/12/2024 with increased shortness of breath. Initial rhythm was PEA and 2 rounds of CPR completed prior to ROSC without any medication. Intubated. Transferred to [facility]. Upon admissionto MICU, CXR showed pulmonary [...] FILOMENA LOUIS MD on 05/20/2024 04:18 PM [facility] HospitalJthpicwy72-02-0784 Telephone encounter Note* Telephone Encounter - Eulalia [...] 2024 Requested Prescriptions Pending Prescriptions Disp Refills oijklik-ghxheason-macamzs D3 (OYSTER SHELL CALCIUM-VITAMIN D) 500 mg-5 mcg (200 unit) per tablet 62tablet 11 Sig: Take 1 tablet by mouth two times a day with meals. Eulalia Laureano RN May 20, 2024 12:31 PM [facility]03-13-2025 Miscellaneous Notes* Telephone Encounter - Eulalia [...] 2024 Requested Prescriptions Pending Prescriptions Disp Refills syjaehg-cpashaxry-qaremwu D3 (OYSTER SHELL CALCIUM-VITAMIN D) 500 mg-5 mcg (200 unit) per tablet 62tablet 11 Sig: Take 1 tablet by mouth two times a day with meals. Eulalia Laureano RN May 20, 2024 12:31 PM documented in this encounterMer[facility]25 Note [facility] Cardiac Critical Cardiac Progress Note Date: 05/20/2024 09:17:23 Patient Name: SIA ABDUL : 1980 ICU Admit Date: 05/18/2024 Intubation Date: N/A Reason for Consult: Hypoxic respiratory failure HPI: Sia Abdul is a 43 year old female with PMH of HFpEF, Prader-Willi, and intellectual disability who presented to [facility] ED on 05/12/24 after having increased [...] been previously intubated. She was transferred to [place] [facility] for ongoing care. She typically receives her care at [facility] and was discharged on 05/05 after [...] Nursing Notes. Critical Care services I provided [id number] 40 minutes. The time involved in the [...] MORENA FELIPE MD on 05/20/2024 09:53 AM [id number] Note* Exam Date Time Procedure Performing Provider Status 05/19/24 2:40 PM XR Chest 1 View ESTHER CABALLERO MD; Aut h (Verified) [id number] ORIGINAL EXAMINATION: ONE XRAY VIEW OF THE [...] 05/19/2024 2:45:28 PM Ordering Provider: BREE FABIAN [facility] [id number] Note [facility] Cardiac Critical Cardiac Progress Note Date: 05/19/2024 10:14:21 Patient Name: SIA ABDUL : 1980 ICU Admit Date: 05/18/2024 Intubation Date: N/A Reason for Consult: Hypoxic respiratory failure HPI: Sia Abdul is a 43 year old female with PMH of HFpEF, Prader-Willi, and intellectual disability who presented to [facility] ED on 05/12/24 after having increased [...] been previously intubated. She was transferred to [place] [facility] for ongoing care. She typically receives her care at [facility] and was discharged on 05/05 after [...] Nursing Notes. Critical Care services I provided [id number] 35 minutes. The time involved in the [...] MORENA FELIPE MD on 05/19/2024 10:40 AM [facility] [id number] Heart failure Consult note Date of Service 05/18/2024 Reason for Consultation Pulmonary hypertension History of Present Illness 43-year-old female past medical history HFpEF, Prader-Willi/intellectual disability presented to [facility] ED 05/12/2024 with increased shortness of breath. Became unresponsive with agonal or absent breathing. Initial rhythm was PEA and 2 rounds of CPR completed prior to ROSC without any medication. Emergently intubated, noted to be difficult intubation due to anterior airway and body habitus. Became hypoxic resolved with DuoNebs. Transferred to [place] [facility]. Of note, discharged from [facility] on 05/05 for acute heart failure [...] BLANCO BRAGA PA-C on 05/18/2024 04:42 PM [facility] [id number] Heart failure Consult note Date of Service 05/18/2024 Reason for Consultation Pulmonary hypertension History of Present Illness 43-year-old female past medical history HFpEF, Prader-Willi/intellectual disability presented to [facility] ED 05/12/2024 with increased shortness of breath. Became unresponsive with agonal or absent breathing. Initial rhythm was PEA and 2 rounds of CPR completed prior to ROSC without any medication. Emergently intubated, noted to be difficult intubation due to anterior airway and body habitus. Became hypoxic resolved with DuoNebs. Transferred to [place] [facility]. Of note, discharged from [facility] on 05/05 for acute heart failure [...] BLANCO BRAGA PA-C on 05/18/2024 04:42 PM [facility] HospitalRvwuooow81-18-9687 Note. MICRO - Microbiology PROCEDURE: Blood Culture [...] Locations *1: This test was performed at: [address], [address] [place], [place] 5776203-11-2025 Note. MICRO - Microbiology PROCEDURE: Blood Culture [...] Locations *1: This test was performed at: [address], [address] [place], [place] [address]203-11-2025 Urology Consult note Date of Service 05/18/2024 [...] from an I&O standpoint I have [facility] notify our office and I will ask for the assistance of the electronics utility worker doctor Problem List/Past Medical History Historical CHF [...] by RANI MALHOTRA on 05/18/2024 12:45 PM [facility] [id number] Heart failure Consult note Date of Service 05/18/2024 Reason for Consultation Pulmonary hypertension History of Present Illness 43-year-old female past medical history HFpEF, Prader-Willi/intellectual disability presented to [facility] ED 05/12/2024 with increased shortness of breath. Became unresponsive with agonal or absent breathing. Initial rhythm was PEA and 2 rounds of CPR completed prior to ROSC without any medication. Emergently intubated, noted to be difficult intubation due to anterior airway and body habitus. Became hypoxic resolved with DuoNebs. Transferred to [place] [facility]. Of note, discharged from [facility] on 05/05 for acute heart failure [...] BLANCO BRAGA PA-C on 05/18/2024 04:42 PM [facility] [id number] Critical care medicine Consult note [facility] Cardiac Critical Cardiac Consultation Note Date: 05/18/2024 04:27:07 Patient Name: SIA ABDUL : 1980 ICU Admit Date: 05/18/2024 Intubation Date: N/A Reason for Consult: Critical Care and Bipap Management HPI: Sia Abdul is a 43 year old female with PMH of HFpEF, Prader-Willi, and intellectual disability who presented to [facility] ED on 05/12/24 after having increased [...] been previously intubated. She was transferred to [place] [facility] for ongoing care. She typically has her care at [facility] and was discharged on 05/05 after [...] 7 day course of Ceftriaxone and Azithromycin. consult for placement. Updated mother Tona prior [...] 01:31) H 36.8(MAY 17 20:14) H 37.1(MAY 18:) Heart Rate 62(MAY 18 03:57) 61(MAY 17 [...] Nursing Notes. Critical Care services I provided [id number] 65 minutes. The time involved in the [...] MORENA FELIPE MD on 05/18/2024 05:17 AM [facility] [id number] Note* Exam Date Time Procedure Performing Provider Status 05/18/24 4:55 AM XR Chest 1 View QUAN JEONG MD; Auth (Verified) [id number] ORIGINAL EXAMINATION: ONE XRAY VIEW OF THE [...] 05/18/2024 5:28:56 AM Ordering Provider: SALMA GARCÍA [facility] [id number] Critical care medicine procedure note [facility] Cardiac Critical Care 05/18/2024 04:23:19 Procedure: Central Venous Catheter Placement Indication: Volume Overload Consent: Patient Timeout performed. Correct patient. Correct procedure. Correct site. Availability of necessary equipment. See nurse documentation for participants. Site: NewRightInternal jugular Catheter: Triple lumen Ultrasound guidance throughout procedure (vessel identification, needle puncture, guidewire, confirmed catheter in vessel): US identified vessel Technique: Public Relations Senior Associate Preparation: Mask, Cap, Handwashing, Sterile gown and sterile gloves. Site Preparation: Chlorhexidine, Full sterile drape. Modified Seldinger technique Micropuncture: Yes Introducing wire visualized in vessel by ultrasound: Yes Venous Manometry: No Biopatch: Yes Clear dressing per protocol. CXR: Pending Complications: None immediately observed. Patient tolerated the procedure well. Attestation:I performed entire procedure. Morena Felipe MD [facility] Cardiac Critical Care CPT: 82364 (Non-tunneled centrally inserted central venous catheter) CPT: 63526 (Ultrasound-guided venous access) Digitally Signed by MORENA FELIPE MD on 05/18/2024 04:26 AM [facility] [id number] Critical care medicine procedure note [facility] Cardiac Critical Care Procedure Note 05/18/2024 04:20:37 Procedure: Arterial Cannula Placement Indication: Acute Respiratory Failure Consent: Patient Timeout performed. Correct patient. Correct procedure. Correct site. Availability of necessary equipment. See nurse documentation for participants. Technique: Public Relations Senior Associate Preparation: Mask, Cap, Handwashing, Sterile gown and [...] I performed entire procedure. Morena Felipe MD [facility] Cardiac Critical Care CPT: 10905 Digitally Signed by MORENA FELIPE MD on 05/18/2024 04:22 AM [facility] [id number] Note* Exam Date Time Procedure Performing Provider Status 05/17/24 9:22 AM XR Chest 2 Views LORI WESLEY DO; Auth (Verified) [id number] ORIGINAL EXAMINATION: TWO XRAY VIEWS OF THE [...] 05/17/2024 11:01:28 AM Ordering Provider: ANSELMO FALK [facility] HospitalEkaecudt85-61-2303 Cardiology Consult note Date of Service 05/15/2024 [...] ANSELMO FALK MD on 05/15/2024 04:26 PM [facility] HospitalBgatbpyg17-76-2655 Note* Exam Date Time Procedure Performing Provider Status 05/15/24 7:34 AM XR Chest 1 View QUAN JEONG MD; Jacques [facility] (Verified) [id number] ORIGINAL EXAMINATION: ONE XRAY VIEW OF THE [...] 05/15/2024 7:47:12 AM Ordering Provider: ANNETTE PHILLIPS [facility] [id number] Note* Exam Date Time Procedure Performing Provider Status 05/14/24 9:03 PM XR Chest 1 View KODY MARINELLI DO; Alex (Verified) [id number] ORIGINAL EXAMINATION: ONE XRAY VIEW OF THE [...] 05/14/2024 10:08:55 PM Ordering Provider: SONU CONLEY [facility] [id number] Note* Exam Date Time Procedure Performing Provider Status 05/14/24 2:36 PM Echocardiogram, Adult - CV Gifty SHORT MD; Auth (Verified) [facility] [id number] Note* Exam Date Time Procedure Performing Provider Status 05/14/24 7:15 AM XR Ankle Minimum 3 Views Right QUAN JEONG MD; Auth (Verified) [id number] ORIGINAL EXAMINATION: THREE XRAY VIEWS OF THE [...] Date: 05/14/2024 7:26:40 AM Ordering Provider: ANNETTE PHILLISP [facility] HospitalHqgzayqy13-82-4757 Note* Exam Date Time Procedure Performing Provider Status 05/14/24 6:46 AM XR Chest 1 View QUAN JEONG MD; A [facility] (Verified) [id number] ORIGINAL EXAMINATION: ONE XRAY VIEW OF THE [...] 05/14/2024 7:01:16 AM Ordering Provider: ANNETTE PHILLIPS [facility] HospitalDntysqxp90-47-9194 Note. MICRO - Microbiology PROCEDURE: Blood Culture [...] Locations *1: This test was performed at: [facility], [address] [place] [address], [facility] , [facility]03-06-2025 Note. MICRO - Microbiology PROCEDURE: Blood Culture [...] Locations *1: This test was performed at: [facility], [address] [place] [address], [id number]- , [facility]03-06-2025 History and physical note Date of Service 05/13/2024 History of Present Illness 43-year-old female with significant past medical history of Prader-Willi and CHF transferred from [facility] after intubation and mechanical ventilation due to AMS. Patient was brought to the hospital via personal vehicle from skilled nursing due to altered mentation. On arrival to [facility] emergency room patient was unresponsive, demonstrating difficulty [...] reports patient typically goes to [facility]. Patient was discharged 05/05 after treatment for volume overload secondary to heart failure exacerbation. Patient established with dental floss packer Dr. Isi France. Review of Systems Patient [...] Date: May 13, 2024 Verified By: QUAN EJONG MD CLINICAL STATEMENT: IMPRESSION: 1. Endotracheal tube [...] ARIEL GUERRERO MD on 05/13/2024 03:43 AM [facility] [id number] Evaluation + Plan noteExtracted from: Title:History and [...] Prader-Willi syndrome, who is a resident at [facility]. The patient apparently appeared altered on [...] apparently was recently hospitalized at [facility] with heart failure. These results are [...] the care she is obtaining at the [facility]. Prognosis is guarded Critical care time 35 minutes Franklyn Stapleton MD [facility] Future Appointments Appointment Date:06/04/2024 01:45:00 PM Scheduled Provider:MARCELINO FALK Location:[facility] Appointment Type:CV Hospital Follow Up Appointment Date:06/22/2024 10:30:00 AM Scheduled Provider: Location:[facility] Appointment Type:CV OV CHF Diagnostic Tests Pending * Culture Respiratory with Gram Stain 05/20/24 [facility] 03-06-2025 History and physical note Date of Service 05/13/2024 History of Present Illness 43-year-old female with significant past medical history of Prader-Willi and CHF transferred from [facility] after intubation and mechanical ventilation due to AMS. Patient was brought to the hospital via personal vehicle from skilled nursing due to altered mentation. On arrival to [facility] emergency room patient was unresponsive, demonstrating difficulty [...] reports patient typically goes to [facility]. Patient was discharged 05/05 after treatment for volume overload secondary to heart failure exacerbation. Patient established with dental floss packer Dr. Isi France. Review of Systems Patient [...] ARIEL GUERRERO MD on 05/13/2024 03:43 AM [facility] HospitalNitbwmon93-93-6318 HCoV 229E RNA DOV+non-probe Ql (Nph)Not Detected *NA* (05/13/24 2:44 AM)[facility] Auto Viro/Sero [id number] NoteHNO ID: [id number] Author: MIKA KAPLAN APRN.BULB INSPECTOR Service: ? Author Type: Nurse Practitioner Type: Progress Notes Filed: 05/10/2024 16:39 Note Text: sertralCC: Patient presents with: Recheck: ER follow up, cellulitis HPI Sia Abdul is a 43 year old female who presents today for recent Hospital stay for cellulitis and anxiety Was at [facility] on 04/28-05/02 for exacerbation of CHF and is following with Dr. Goodman in [employer] for this who is her dental floss packer. Is on torsemide for this and another [...] with anxious feelings. Is having trouble sleeping. Mir Vracha bought her skilled nursing last year and made changes which have not made her very trusting of them. Patient very negative with description of her current caretakers of her skilled nursing. Feels they do not feel her well and swap out her food These reported changes have made for a poor diet she feels has impacted with her routine hospitalizations. Mother is aware of these concerns and state her transplant case manager is looking into this. Sleep: [...] Take 1 tablet by mouth once daily. Ekkrk-9-DCG-EPA-Fish Oil 1,000 mg (120 mg-180 mg) cap [...] content not included)...[facility] 05-10-2024 History of Present illness Narrative* Mika Kaplan APRN.BULB INSPECTOR - 05/10/2024 2:05 PM EST sertralCC: Patient presents with: Recheck: ER follow up, cellulitis HPI Sia Abdul is a 43 year old female who presents today for recent Hospital stay for cellulitis and anxiety Was at [facility] on 04/28-05/02 for exacerbation of CHF and is following with Dr. Maxine Bartlett for this who is her dental floss packer. Is on torsemide for this and another [...] with anxious feelings. Is having trouble sleeping. Mir Vracha bought her skilled nursing last year and made changes which have not made her very trusting of them. Patient very negative with description of her current caretakers of her skilled nursing. Feels they do not feel her well and swap out her food These reported changes have made for a poor diet she feels has impacted with her routine hospitalizations. Mother is aware of these concerns and state her transplant case manager is looking into this. Sleep: [...] Take 1 tablet by mouth once daily. Woepw-1-DTU-EPA-Fish Oil 1,000 mg (120 mg-180 mg) cap [...] is where previous blister was located. Leg cloth bleaching range back tender and slightly warmer to the touch. [...] Screening Completed DATA REVIEWED: Outside chart from [facility] reviewed. ASSESSMENT/PLAN: 1. Cellulitis of left lower [...] next week. Mother is working with her transplant case manager to figure out what is [...] - Instructed patient to contact office or zvnks-sc-tmdm after-hours promptly should condition worsen or any new symptoms appear. - Counseling [facility] and after hours crisis line 3. 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 Potential red flag symptoms discussed with the patient. Reviewed appropriate action plan to take if red flag symptoms occur. Patient agreeable to treatment plan. Mika Kaplan APRN.OBED documented in this encounter[facility] Hospital Discharge instructions Patient Education 05/08/2024 [...] or higher after 2 days on antibiotics [id number] The [employer]. [address] [place] [address], [place] [address]. All rights reserved. This information is not intended as a substitute for professional medical care. Always follow yourhealthcare professional's instructions. Follow Up Care 05/08/2024 11:00:30 With:MARILEE THAKUR Address: [address] [place] [address] [place] [address]- [facility] (1) When:2-4 days Comments:Schedule appointment for close follow-up.Use Tylenol or Advil for pain and fever as needed.Use antibiotic (cephalexin) as prescribed to treat cellulitis (skin infection).Return to the ED if symptoms worsen. [facility] 03-01-2025 Emergency department Discharge summary Discharge Instructions Thank you for allowing [facility] to assist you with your healthcare needs. The following is importantdischarge information regarding your hospital visit. What to Do Next Instructions from Your Care Team No qualifying data available. Post Acute Orders No qualifying data available. You Need to Schedule the Following Appointments Follow Up with MARILEE THAKUR When:Within 2-4 days Where:[facility] [place] [address] [facility] (1) Additional Information: Schedule appointment for close [...] may report side effects to FDA at 2-597-AUU-2812. What other drugs will affect cephalexin? Tell your doctor about all your other medicines, especially: metformin; or probenecid. This list is not complete. Other drugs may affect cephalexin, including prescription and ppdv-gdb-riahzvl medicines, vitamins, and herbal products. Not all [...] to ensure that the information provided by [employer] ('[employer]') is accurate, up-to-date, and complete, but no guarantee is made to that effect. Drug information contained herein may be time sensitive. [employer] information has been compiled for use by healthcare practitioners and consumers in the [place] and therefore [employer] does not warrant that uses outside of the [place] are appropriate, unless specifically indicated otherwise. [facility] drug information does not endorse drugs, diagnose patients or recommend therapy. [facility] drug information isan informational resource designed to [...] effective or appropriate for any given patient. [employer] does not assume any responsibility for any aspect of healthcare administered with the aid of information [employer] provides. The information contained herein is not intended to cover all possible uses, directions, precautions, warnings, drug interactions, allergic reactions, or adverse effects. If you have questions about the drugs you are taking, check with your doctor, nurse or pharmacist. Copyright 2829-3060 [employer]. Version: 12.. Revision Date: 10/09/2022. Education Materials Cellulitis Cellulitis [...] or higher after 2 days on antibiotics 3819-5278 The [employer]. [address] [place] [address]. All rights reserved. This information is not intended as a substitute for professional medical care. Always follow yourhealthcare professional's instructions. Additional Information VACCINATE! IT SAVES LIVES! Members of the community who have not yet received the COVID-19 vaccine and would like to receive it can visit one of [facility] vaccine clinics. There are many vaccine clinic locations within the [facility]. For locations and available times, please visit www.gettheshot.coronavirus.[place].gov/. It is important to note that some COVID mobile vaccine clinics are held outdoors and may be canceled in rainy or stormy conditions. To learn more about pediatric vaccinations (ages 5-11), we invite you to visit the [facility] webpage. https://www.[facility].org/pages/7355-Ixvyh-Iqvaeonicfx-Qjpnwcceoj-Veega-Xjy stions.htmlTo learn more about the COVID-19 vaccine, we invite you to visit the CDC website for a list of frequently asked questions. https://www.cdc.gov/coronavirus/2019-ncov/vaccines/faq.html [facility] Patient Portal Access Instructions: Stay connected with your healthcare team and access your personal medical information anytime with the [facility] Patient Portal. If you would like a full copy of your medical records please contact the [facility] Medical Records Department Friday through Friday between 8a.m. and 4:30p.m. Please follow the directions below to access the portal: 1.Access the email account you provided upon registration to the [facility].2.Look for an invitation email from [facility].3.Open the email and access the invitation link: Accept Invitation to [facility]4.Fill in the required perez to create your account. Sign into [email or web address] with your username and password that you [...] you will allow to register on the [facility] Patient Portal for access to your information. You can also access the [facility] Patient Portal on the [employer]. Simply click on Health Records under [employer] and then click on the Donald logo. HOW TO SAFELY DISPOSE OF PRESCRIPTION [...] Call your local pharmacy or go to http://Pixia.ArtVenue/4I3Oi4v to find one close to you.3.Make use of household items: Use cat litter or old coffee grounds to dispose medications if other options arenot available. Mix your drugs with these household products, seal them in an airtight container andthrow it into the garbage. Call [facility]: [phone] to be sure your drugs can be [...] aware that I should contact my doctor. Patient/Financial Services Education Consultant Signature: Date/Time: Relationship to Patient: Witness Name/Signature: Date/Time: [facility]02-27-2025 Telephone encounter Note* Telephone Encounter - María Avila MA - 05/06/2024 8:18 AM EST Leia notified. [facility]02-27-2025 Miscellaneous Notes* Telephone Encounter - María Avila MA - 05/06/2024 8:18 AM EST Leia notified. * Telephone Encounter - Mika Kaplan APRN.CNP - 05/06/2024 8:06 AM EST Agree with order for PT. Thank you Mika Kaplan APRN.CNP * Telephone Encounter - Candelaria Ball LPN - 05/05/2024 3:29 PM EST Leia from [facility] calling asking for a new verbal order for PT plan of care 2 visits weekly for 4 weeks, please. Please advise documented in this encounterMer[facility]02-27-2025 Telephone encounter Note * Telephone Encounter - Mika Kaplan APRN.CNP - 05/06/2024 8:06 AM EST Agree with order for PT. Thank you Mika Kaplan APRN.CNP [facility]02-26-2025 Telephone encounter Note* Telephone Encounter - Candelaria Ball LPN - 05/05/2024 3:29 PM EST Leia from [facility] calling asking for a new verbal order for PT plan of care 2 visits weekly for 4 weeks, please. Please advise [facility] History of Present illness Narrative* Isi [...] pulmonary embolism. Patient was referred by her inhalation therapy aide to establish care with general cardiology. Patient [...] torsemide on 01/27/2024. AT time patient wasin skilled nursing and torsemide accidentally not initiated. Patient's mother [...] [facility] [...] ADVANCE*, Disp: , Rfl: fish oil concentrate (Powderly-3) 120-180 mg capsule, Take 1 capsule (1 [...] intermittent asthma, venous insufficiency, and history of DVTRei Stovall presents to cardiology clinic on 05/04/2024. [facility] [...] months Isi Goodman MD documented in this [facility] Work Phone: 1(261) 754-626702-25-2025 Instructions* Patient Instructions* Isi Goodman MD - 05/04/2024 11:45 AM EST We are adding metolazone 5 mg once a week; continue torsemide 40 mg twice a day (morning / afternoon). We will see you back in heart clinic in ~ 6 weeks. Thank you for your visit today. Please contact our office (via [employer] or phone) with any additional questions. [facility] [place] Corinne, RODRÍGUEZ/Clinic Nurse for: Dr. Maxine Nicolas [address], [address] [place] [address] Press Option 5 then Option 3 to speak with the Clinic Nurse (Corinne) To Reach: Billing Questions - [phone] Scheduling / Rescheduling - Option 1 Refills / Medication Requests - Option 3 General Office / Senior Software Development Manager - Option 4 Results - Option 6 Medical Records - Option 7 Repeat Options - Option 9 documented in this encounterSelect Medical [facility] Work Phone: 1(696) 302-230002-24-2025 History of Present illness Narrative* Keely Ordonez MD - 05/03/2024 3:00 PM EST 44 F PMH: DACIA, hypothryroidism, right sided heart failure Coming in today for Prafallon Leandro evaluation, referred by genetics related to weight gain History provided by mom, patient, records She currently resides in a skilled nursing with a visiting nurse 1) Weight Multiple [...] Genetics Endocrine History: Hypogonadotropic hypogonadism On OCP-by SECURITY OPERATIONS CENTER ANALYST Started in her 20s Currently on norethindrone [...] Insecurity: No Food Insecurity (01/06/2024) Received from [facility] Hunger Vital Sign Worried About Running Out of Food in the Last Year: Never true Ran Out of Food in the Last Year: Never true Transportation Needs: No Transportation Needs (01/06/2024) Received from [facility] PRAPARE - Transportation Lack of Transportation [...] this time -metabolic screening Currently resides in skilled nursing Cont person: Maria Elena Guy [place] Director Of Placement-Shaunna Moise [phone] Next of Kin: mother Follow up next available documented in this encounterUnMer[facility] Work Phone: 1(537) 705-192002-24-2025 Instructions* Patient Instructions* Keely Ordonez MD - 05/03/2024 3:00 PM EST Get your labs done in the morning around 8-9am, fasting from midnight Zepbound- we will send through pharmacy home delivery 2.5mg weekly for 4 weeks then increase to 5mg weekly Follow up next available Keely Ordonez MD Divison of Endocrinology [facility] option 4, then option 1 documented in this encounterUnMercy Health [facility] Work Phone: 1(499) 942-669902-23-2025 [facility]02-21-2025 Telephone encounter Note* Telephone Encounter - Rafia Dennis MA - 04/30/2024 8:59 AM EST See other TE 04/29-direct care provider notified PCP office patient has been admitted to Hospital. Will close TE at this time. Rafia Dennis MA [facility]02-21-2025 Miscellaneous Notes* Telephone Encounter - Rafia [...] RN - 04/27/2024 3:09 PM EST Enrique- [facility]- called to give pcp update on [...] notifying patient's doctors, and will call patient's dental floss packer next. documented in this encounterMer[facility]02-20-2025 Telephone encounter Note * Telephone Encounter - Marilee Thakur MD - 04/29/2024 4:29 PM EST Noted. [facility]02-20-2025 Miscellaneous Notes* Telephone Encounter - Marilee Thakur MD - 04/29/2024 4:29 PM EST Noted. * Telephone Encounter - Pepper Walsh RN - 04/29/2024 12:18 PM EST Clarence with [facility] ([facility]) calling to update provider that patient [...] 's mom, patient has been admitted to [facility]. Pepper Walsh RN documented in this encounterMer[facility]02-[facility]-2025 Telephone encounter Note * Telephone Encounter - Pepper Walsh RN - 04/29/2024 12:18 PM EST Clarence with [employer] ([facility]) calling to update provider that patient [...] 's mom, patient has been admitted to [facility]. Pepper Walsh RN [facility]02-20-2025 Evaluation note* Diagnosis Onset Date Resolution Status Admit Date Hypoxia acute April 28, 2024 10:26pm Acute on chronic congestive heart failure resolved April 28 10:26pm [facility] Work Phone: 1(543) 321-772502-18-2025 Telephone encounter Note* Telephone Encounter - Marilee Thakur MD - 04/27/2024 5:24 PM EST She needs to go to the ER. Regards, Marilee Thakur MD [facility]02-18-2025 Telephone encounter Note* Telephone Encounter - Rah Turner RN - 04/27/2024 3:09 PM EST Enrique- [facility]- called to give pcp update on [...] notifying patient's doctors, and will call patient's dental floss packer next. [facility]02-17-2025 Telephone encounter Note* Telephone Encounter - María Avila MA - 04/26/2024 12:43 PM EST Shobha, manager video games notified. Please assist in scheduling repeat CT. [facility]02-17-2025 Miscellaneous Notes* Telephone Encounter - María Avila MA - 04/26/2024 12:43 PM EST Shobha, manager video games notified. Please assist in scheduling repeat CT. * Telephone Encounter - Mika Kaplan APRN.CNP - 04/21/2024 2:28 PM EST Unsure on what the spots/lumps to abdomen are. Will repeat Ultrasound in 4-6 weeks to revaluate this. Thank you Mika Kaplan APRN.CNP documented in this encounterMercy Health [facility]02-12-2025 Telephone encounter Note * Telephone Encounter - Mika Kaplan APRN.CNP - 04/21/2024 2:28 PM EST Unsure on what the spots/lumps to abdomen are. Will repeat Ultrasound in 4-6 weeks to revaluate this. Thank you Mika Kaplan APRN.CNP [facility]02-05-2025 History of Present illness Narrative* Pily [...] PATIENT PRESENTS WITH AN IMPLANTABLE OR ATTACHED WOOL HAT HYDRAULICKER: No RADIOLOGY DEPARTMENT: Ultrasound PERIPHERAL IV DATA: Not applicable SIGNED BY: Pily Lynch RDMS RVT April 14, 2024 2:54 PM documented in this encounterMercy Health [facility]02-05-2025 NoteHNO ID: [id number] Author: PILY LYNCH RDMS Service: ? Author Type: Clinical Quality Assurance Specialist Type: Progress Notes Filed: 04/14/2024 14:54 Note [...] PATIENT PRESENTS WITH AN IMPLANTABLE OR ATTACHED WOOL HAT HYDRAULICKER: No RADIOLOGY DEPARTMENT: Ultrasound PERIPHERAL IV DATA: Not applicable SIGNED BY: Pily Lynch RDMS RVT April 14, 2024 2:54 [facility]CPark[facility]02-[facility]-2025 Telephone encounter Note* Telephone Encounter - Marilee Thakur MD - 04/12/2024 5:32 PM EST Noted [facility]02-03-2025 Miscellaneous Notes* Telephone Encounter - Marilee Thakur MD - 04/12/2024 5:32 PM EST Noted * Telephone Encounter - Rah Turner RN - 04/12/2024 12:46 PM EST [place] asking pcp to discontinue the Dulera since it is no longer covered by insurance and the Breo Ellipta was sent in it's place since insurance does cover Breo. [place] is going to go ahead and discontinue the dulera on their end. documented in this encounterMercy Health [facility]02-03-2025 Telephone encounter Note * Telephone Encounter - Rah Turner RN - 04/12/2024 12:46 PM EST [place] asking pcp to discontinue the Dulera since it is no longer covered by insurance and the Breo Ellipta was sent in it's place since insurance does cover Breo. [place] is going to go ahead and discontinue the dulera on their end. [facility]02-03-2025 Telephone encounter Note* Telephone Encounter - Morena Kearney MA - 04/12/2024 11:55 AM EST PA for Breo is approved Authorization number: [id number] Authorized from April 12, 2024 to April 11, 2025 Morena Kearney MA [facility]02-03-2025 Miscellaneous Notes* Telephone Encounter - Morena Kearney MA - 04/12/2024 11:55 AM EST PA for Breo is approved Authorization number: [id number] Authorized from April 12, 2024 to April [...] inhaler Morena Kearney MA documented in this encounterMercy Health [facility]01-31-2025 Telephone encounter Note * Telephone Encounter - Marilee Thakur MD - 04/09/2024 5:14 PM EST Well I ordered the breo and it still says that prior auth is needed. Regards, Marilee Thakur MD [facility]01-31-2025 Telephone encounter Note* Telephone Encounter - Morena Kearney MA - 04/09/2024 1:35 PM EST Insurance mailed letter stating Dulera is no longer on formulary. Formulary covered alternatives are -Breo Ellipta -Breyna -Advair HFA Please choose alternative and send. Patient caregiver is aware alternative will be sent. Please have staff fax phone note to number below showing new inhaler Morena Kearney MA [facility]01-31-2025 Telephone encounter Note* Telephone Encounter - Teresa Ferrera RN - 04/09/2024 12:56 PM EST Shobha Burt with [facility] called and is notified of providers message and instructions. She voices understanding. She asked if we could fax the new prescription to the nurse Rafia at fax # [phone]. Rx faxed. Teresa Ferrera RN [facility]01-31-2025 Miscellaneous Notes* Telephone Encounter - Teresa Ferrera RN - 04/09/2024 12:56 PM EST Shobha Burt with [facility] called and is notified of providers message and instructions. She voices understanding. She asked if we could fax the new prescription to the nurse Rafia at fax # [phone]. Rx faxed. Teresa Ferrera RN * Telephone [...] she is taking right now? Marilee Lassiter MD * Telephone Encounter - Lacie Reyes LPN - 04/08/2024 9:29 AM EST Called and spoke to Clarence the nurse caring for patient, Clarence asking, please send demadex order to [facility] pharmacy with new directions. Dosage change Thank you. Lacie Reyes LPN * Telephone Encounter - Marilee Thakur MD - 04/07/2024 1:04 PM EST Ok I see that he is taking the demadex, so should continue it , could take an extra if needed Marilee Lassiter MD * Telephone Encounter - Eulalia Laureano RN - 04/06/2024 10:59 AM EST Enrique Mckenna with [facility] calls with update. Enrique reports that [...] which isn't typical for patient. Enrique contacting dental floss packer as well. Eulalia Laureano RN documented in this encounterMercy [facility]01-31-2025 Telephone encounter Note * Telephone Encounter - Marilee Thakur MD - 04/09/2024 12:23 PM EST More demadex was sent to the pharmacy. Marilee Lassiter MD [facility]01-30-2025 Telephone encounter Note* Telephone Encounter - Lacie Reyes LPN - 04/08/2024 4:26 PM EST When I spoke to nurse Clarence stated she is taking 40mg 2 times a day currently. Lacie Reyes LPN April 08, 2024 4:26 PM [facility]01-30-2025 Telephone encounter Note* Telephone Encounter - María Avila MA - 04/08/2024 2:40 PM EST Leia notified. [facility]01-30-2025 Miscellaneous Notes* Telephone Encounter - María Avila MA - 04/08/2024 2:40 PM EST Leia notified. * Telephone Encounter - Marilee hTakur MD - 04/08/2024 1:54 PM EST Verbal ok for the same Regards, Marilee Thakur MD * Telephone Encounter - Pamela Singh LPN - 04/08/2024 1:47 PM EST Leia with [facility], PT called to let you know they need to re- cert pt for 04/13/24 and would like to see pt 2 times week for 4 weeks. dx Prader Willi Syndrome and Acute chronic diastolic congestive heart failure. Please call Leia back with verbal order. Okay to leave a detailed message. Pamela Singh LPN documented in this encounterMercy Health [facility]01-30-2025 Telephone encounter Note * Telephone Encounter - Marilee Thakur MD - 04/08/2024 1:54 PM EST Verbal ok for the same Regards, Marilee Thakur MD [facility]01-30-2025 Telephone encounter Note* Telephone Encounter - Marilee Thakur MD - 04/08/2024 1:47 PM EST Can you confirm how much of demadex she is taking right now? Regards, Marilee Thakur MD [facility]01-30-2025 Telephone encounter Note* Telephone Encounter - Pamela Singh LPN - 04/08/2024 1:47 PM EST Leia with [facility], PT called to let you know they need to re- cert pt for 04/13/24 and would like to see pt 2 times week for 4 weeks. dx Prader Willi Syndrome and Acute chronic diastolic congestive heart failure. Please call Leia back with verbal order. Okay to leave a detailed message. Pamela Singh LPN [facility]01-30-2025 Telephone encounter Note* Telephone Encounter - Lacie Reyes LPN - 04/08/2024 9:29 AM EST Called and spoke to Clarence the nurse caring for patient, Clarence asking, please send demadex order to [facility] pharmacy with new directions. Dosage change Thank you. Lacie Reyes LPN [facility]01-29-2025 Telephone encounter Note* Telephone Encounter - Marilee Thakur MD - 04/07/2024 1:04 PM EST Ok I see that he is taking the demadex, so should continue it , could take an extra if needed Regards, Marilee Thakur MD [facility]01-28-2025 Telephone encounter Note* Telephone Encounter - Eulalia Laureano RN - 04/06/2024 10:59 AM EST Enrique Mckenna with [facility] calls with update. Enrique reports that [...] which isn't typical for patient. Enrique contacting dental floss packer as well. Eulalia Laureano RN [facility]01-28-2025 NoteHNO ID: [id number] Author: HILDA JEONG, DO Service: ? Author Type: Physician Type: Progress Notes Filed: 04/06/2024 12:56 Note Text: [facility] [place] DEPARTMENT OF VASCULAR SURGERY OUTPATIENT VISIT DATE April 06, 2024 OUTPATIENT VISIT TYPE CONSULTATION SERVICE DATE: 04/06/2024 SERVICE TIME: 9:43 AM PRIMARY CARE PHYSICIAN: Marilee Thakur MD REFERRING PROVIDER: Marilee Thakur [address] [address] Consult requested for an opinion regarding the [...] obesity (HCC) Non-STEMI (non-ST elevated myocardial infarction) ([facility]) 02/24/2024 Other diseases of lung, not elsewhere [...] Take 1 tablet by mouth once daily. Crrta-0-HEC-EPA-Fish Oil 1,000 mg (120 mg-180 mg) cap [...] content not included)...[facility]01-28-2025 History of Present illness Narrative* Hilda Jeong, DO - 04/06/2024 9:43 AM EST Images from the original note were not included. [facility] [place] DEPARTMENT OF VASCULAR SURGERY OUTPATIENT VISIT DATE April 06, 2024 OUTPATIENT VISIT TYPE CONSULTATION SERVICE DATE: 04/06/2024 SERVICE TIME: 9:43 AM PRIMARY CARE PHYSICIAN: Marilee Thakur MD REFERRING PROVIDER: Marilee Thakur [address] [address] Consult requested for an opinion regarding the [...] She was previously seen by Dr. Hirsch. Shehas known lymphedema and recently diagnosed with CHF. [...] obesity (HCC) Non-STEMI (non-ST elevated myocardial infarction) ([facility]) 02/24/2024 Other diseases of lung, not elsewhere [...] Take 1 tablet by mouth once daily. Txrcy-6-XNR-EPA-Fish Oil 1,000 mg (120 mg-180 mg) cap [...] Anaphylaxis Bumex [Bumetanide] Diarrhea, Other: See Comments headahes Dilantin [Phenytoin* REVIEW of SYSTEMS: Constitutional: No weight [...] lesions, rash, and itching. PHYSICAL EXAM: VITALS: [facility] 05/13/2007 General: Alert, oriented, cooperative, healthy [...] 2024 TIME: 9:43 AM documented in this encounterMercy [facility]01-24-2025 Telephone encounter Note * Telephone Encounter - Candelaria Ball LPN - 04/02/2024 9:37 AM EST Phoned Clarence and went over notes below from Mika Kaplan STRINGED INSTRUMENT REPAIRER with understanding. [facility]01-24-2025 Miscellaneous Notes* Telephone Encounter - Candelaria Ball LPN - 04/02/2024 9:37 AM EST Phoned Clarence and went over notes below from Mika Kaplan STRINGED INSTRUMENT REPAIRER with understanding. * Telephone Encounter - Mika Kaplan APRN.CNP - 04/02/2024 9:12 AM EST Agree with need for these services and agree to follow Mika Kaplan APRN.CNP * Telephone Encounter - Pepper Walsh RN - 04/02/2024 8:26 AM EST Clarence, a nurse with [facility] is calling to ask if provider will approve re certification for long term, PT and OT services for patient. Clarence would like a call back with provider's approval, . Pepper Walsh RN documented in this encounterMercy Health [facility]01-24-2025 Telephone encounter Note * Telephone Encounter - Mika Kaplan APRN.CNP - 04/02/2024 9:12 AM EST Agree with need for these services and agree to follow Mika Kaplan APRN.CNP [facility]01-24-2025 Telephone encounter Note* Telephone Encounter - Pepper Walsh RN - 04/02/2024 8:26 AM EST Clarence, a nurse with [facility] is calling to ask if provider will approve re certification for long term, PT and OT services for patient. Clarence would like a call back with provider's approval, . Pepper Walsh RN [facility]01-23-2025 NoteHNO ID: [id number] Author: MIKA KAPLAN APRN.BULB INSPECTOR Service: ? Author Type: Nurse Practitioner Type: [...] Take 1 tablet by mouth once daily. Nqwza-2-SIJ-EPA-Fish Oil 1,000 mg (120 mg-180 mg) cap [...] not included)... [facility]01-23-2025 History of Present illness Narrative* Mika Kaplan APRN.BULB INSPECTOR - 04/01/2024 11:00 AM EST CC: Patient [...] obesity (HCC) Non-STEMI (non-ST elevated myocardial infarction) ([facility]) 02/24/2024 Other diseases of lung, not elsewhere [...] Take 1 tablet by mouth once daily. Hwvyh-2-PCU-EPA-Fish Oil 1,000 mg (120 mg-180 mg) cap [...] no evaluated in this visit. Contact your miter operator for further evaluation 7. Hematuria, unspecified type - ICD9: 599.70, ICD10: R31.9 See #3 - BACTERIAL CULTURE, URINE - URINALYSIS, WITH MICROSCOPIC Prescription instructions reviewed with patient as applicable. Potential red flag symptoms discussed with the patient. Reviewed appropriate action plan to take if red flag symptoms occur. Patient agreeable to treatment plan. Mika Kaplan APRN.CNP documented in this encounterMercy Health [facility] Hospital01-20-2025 Telephone encounter Note * Telephone Encounter - Teresa Ferrera RN - 03/29/2024 4:11 PM EST [facility] called in and reports [facility] reached out to them with a referral. They states they have been trying to get a hold of the Pt, but haven't been able to. She states it says she lives a t a [facility], but no the name of the skilled nursing. I have her the names and number we had to get in contact with the Pt. I told her we had Shobha Dallas as a contact at the [facility] ome [phone], which was the same phone # we had for the Pts home and mobile phone. Then we had Anali Gibson as her health care specialist at [phone]. She states she had tried calling the Pts mother, but was not able to get a hold of her. She said she would try these numbers. [facility]01-20-2025 Miscellaneous Notes* Telephone Encounter - Teresa Ferrera RN - 03/29/2024 4:11 PM EST Yazan with [facility] called in and reports [facility] reached out to them with a referral. They states they have been trying to get a hold of the Pt, but haven't been able to. She states it says she lives a t a [facility], but no the name of the skilled nursing. I have her the names and number we had to get in contact with the Pt. I told her we had Shobha Dallas as a contact at the group ome [phone], which was the same phone # we had for the Pts home and mobile phone. Then we had Anali Gibson as her health care specialist at [phone]. She states she had tried calling the Pts mother, but was not able to get a hold of her. She said she would try these numbers. documented in this encounterMercy Health [facility] Hospital01-15-2025 Telephone encounter Note * Telephone Encounter - Aaliyah Gonzalez MA - 03/24/2024 12:28 PM EST Faxed as requested. Aaliyah Gonzalez MA [facility]01-15-2025 Miscellaneous Notes* Telephone Encounter - Aaliyah Gonzalze MA - 03/24/2024 12:28 PM EST Faxed as requested. Aaliyah Gonzalez MA * Telephone Encounter - Pamela Singh LPN - 03/24/2024 11:38 AM EST [facility]ob[facility] with [facility] called to let you know af ax was sent approx around 11 am today 03-24-24. Inthis fax they are exact specific that need to be on Dr. Thakur last note and they need faxed back tothem as soon as possible. This is regarding Lymphedema Leg Compressions Pump. FAX: [phone] Pamela Singh LPN documented in this encounterMercy Health [facility]01-15-2025 Telephone encounter Note * Telephone Encounter - Pamela Singh LPN - 03/24/2024 11:38 AM EST Shobha with [facility] called to let you know af ax was sent approx around 11 am today 03-24-24. Inthis fax they are exact specific that need to be on Dr. Thakur last note and they need faxed back tothem as soon as possible. This is regarding Lymphedema Leg Compressions Pump. FAX: [phone] Pamela Singh LPN [facility]01-14-2025 History of Present illness Narrative* Isi [...] pulmonary embolism. Patient was referred by her inhalation therapy aide to establish care with general cardiology. Patient [...] torsemide on 01/27/2024. AT time patient wasin skilled nursing and torsemide accidentally not initiated. Patient's mother [...] , Rfl: ergocalciferol (Vitamin D-2) 1.25 MG (05278 UT) capsule, Take by mouth., Disp: , Rfl: fish oil concentrate (Powderly-3) 120-180 mg capsule, Take 1 capsule (1 [...] torsemide on 01/27/2024. AT time patient wasin skilled nursing and torsemide accidentally not initiated. Patient's mother [...] months Isi Goodman MD documented in this encounterSelect Medical [facility] Work Phone: 1(499) 135-386101-14-2025 Instructions* Patient Instructions* Isi Goodman MD - [...] visit today. Please contact our office (via [employer] or phone) with any additional questions. [facility] [place] RODRÍGUEZ Sun/Clinic Nurse for: Dr. Maxine Nicolas [address], [address] [place] [address] Press Option 5 then Option 3 to speak with the Clinic Nurse (Corinne) To Reach: Billing Questions - [phone] Scheduling / Rescheduling - Option 1 Refills / Medication Requests - Option 3 General Office / [facility] - Option 4 Results - Option 6 Medical Records - Option 7 Repeat Options - Option 9 documented in this encounterSelect Medical [facility] Work Phone: 1(455) 175-888301-08-2025 Miscellaneous Notes* Telephone Encounter - María Avila MA - 03/17/2024 9:43 AM EST Clarence has not heard that medication was not received so he is assuming it arrived. * Telephone Encounter - Mika Kaplan APRN.CNP - 03/17/2024 7:20 AM EST Will address at upcoming appointment. Has patient received her lasix? Is she having any symptoms? Thank you Mika Kaplan APRN.OBED * Telephone Encounter - Lillie Marshall RN - 03/16/2024 9:37 AM EST Clarence from [facility] calls with a couple of things [...] can start taking medication. Clarence also notified dental floss packer regarding weight gain. Patient has a vaginal [...] advise, Lillie Marshall RN documented in this encounterMercy Health [facility]01-08-2025 Telephone encounter Note * Telephone Encounter - María Avila MA - 03/17/2024 9:43 AM EST Clarence has not heard that medication was not received so he is assuming it arrived. [facility]01-08-2025 Telephone encounter Note* Telephone Encounter - Mika Kaplan APRN.CNP - 03/17/2024 7:20 AM EST Will address at upcoming appointment. Has patient received her lasix? Is she having any symptoms? Thank you Mika Kaplan APRN.BULB INSPECTOR [facility]01-07-2025 Telephone encounter Note* Telephone Encounter - Lillie Marshall RN - 03/16/2024 9:37 AM EST Clarence from [facility] calls with a couple of things [...] can start taking medication. Clarence also notified dental floss packer regarding weight gain. Patient has a vaginal prolapse. This was noted last time patient was in hospital. Mother had reported that patient has had prolapse for awhile. Staff has noticed that when patient's wipes there is a little blood on the toilet paper. Clarence asking if this can be address at patient's appointment on 03/10. Please review and advise, Lillie Marshall RN [facility]01-03-2025 Telephone encounter Note* Telephone Encounter - Eulalia Laureano RN - 03/12/2024 12:51 PM EST Blanca with [facility] calls to let provider know that patient [...] needed at this time. Eulalia Laureano RN [facility]01-03-2025 Miscellaneous Notes* Telephone Encounter - Eulalia Laureano RN - 03/12/2024 12:51 PM EST Blanca with [facility] calls to let provider know that patient [...] time. Eulalia Laureano RN documented in this encounterMercy Health [facility]01-[facility]-2025 NoteHNO ID: [id number] Author: RAJESH CORONA MD Service: ? Author Type: Physician Type: Progress Notes Filed: 03/13/2024 23:03 Note Text: This note was created using [employer]. Subjective Patient presents with: Hospital F/U: [facility] 02/28/24 for pulmonary edema and severe pain [...] Take 1 tablet by mouth once daily. Ngqgj-6-PSY-EPA-Fish Oil 1,000 mg (120 mg-180 mg) cap [...] content not included)...[facility]01-03-2025 History of Present illness Narrative* Rajesh Corona MD - 03/12/2024 10:41 AM EST This note was created using NoteWriter. Subjective Patient presents with: Hospital F/U: [facility] 02/28/24 for pulmonary edema and severe pain [...] Take 1 tablet by mouth once daily. Tuvtq-3-CRN-EPA-Fish Oil 1,000 mg (120 mg-180 mg) cap [...] SUPPLY Rajesh Corona MD documented in this encounterMercy [facility]01-[facility]25 Telephone encounter Note * Telephone Encounter - Pepper Walsh RN - 03/12/2024 8:16 AM EST Leia, Physical Therapist with [facility], notified. Pepper Walsh RN [facility]01-03-2025 Miscellaneous Notes* Telephone Encounter - Pepper Walsh RN - 03/12/2024 8:16 AM EST Leia, Physical Therapist with [facility], notified. Pepper Walsh RN * Telephone Encounter - Mika Kaplan APRN.CNP - 03/12/2024 8:11 AM EST Ok to continue in home physical therapy. Thank you Mika Kaplan APRN.CNP * Telephone Encounter - Pepper Walsh RN - 03/09/2024 11:23 AM EST Leia, Physical Therapist with [facility] calling and requesting verbal order to continue in-home Physical Therapy for patient. Please call Leia at [phone]. May leave detailed message on this secure VM. Pepper Walsh RN documented in this encounterMercy Health [facility]01-03-2025 Telephone encounter Note * Telephone Encounter - Mika Kaplan APRN.CNP - 03/12/2024 8:11 AM EST Ok to continue in home physical therapy. Thank you Mika Kaplan APRN.CNP [facility]01-02-2025 Telephone encounter Note* Telephone Encounter - Teresa Ferrera RN - 03/11/2024 10:53 AM EST Shobha from [facility] called and is notified of providers message and instructions. She voices understanding and states Pt isn't SOB. Pt scheduled tomorrow with Dr Corona at 940 am. Teresa Ferrera RN [facility]01-02-2025 Miscellaneous Notes* Telephone Encounter - Teresa Ferrera RN - 03/11/2024 10:53 AM EST Shobha from [facility] called and is notified of providers message [...] - 03/11/2024 9:39 AM EST Shobha from [facility] calling patient said Bumex has been giving her a headache. She wastaken off the generic lasix and put on bumex 1 mg one tablet twice daily when she was in [facility]. She was discharged on 03/01/2024, patient has gained 13 pounds since that date. She has refused to take Bumex last night and this morning dose. Patient uses [facility] for her pharmacy. Asking if she can have medication discontinued and placed on something else? Her next appt is scheduled on 03/22/2024 with Mika Kaplan for a physical. Please advise documented in this encounterMercy [facility]01-02-2025 Telephone encounter Note * Telephone Encounter - Sagar Stewart MD - 03/11/2024 9:47 AM EST Would recommend seeing a provider sooner since has gained weight off diuretic. If short of breath, to er [facility] Work Phone: 1(183) 542-894801-02-2025 Telephone encounter Note* Telephone Encounter - Candelaria Ball LPN - 03/11/2024 9:39 AM EST Shobha from [facility] calling patient said Bumex has been giving her a headache. She wastaken off the generic lasix and put on bumex 1 mg one tablet twice daily when she was in [facility]. She was discharged on 03/01/2024, patient has gained 13 pounds since that date. She has refused to take Bumex last night and this morning dose. Patient uses [facility] for her pharmacy. Asking if she can have medication discontinued and placed on something else? Her next appt is scheduled on 03/22/2024 with Mika Kaplan for a physical. Please advise [facility]12-31-2024 Telephone encounter Note* Telephone Encounter - Pepper Walsh RN - 03/09/2024 11:23 AM EST Leia, Physical Therapist with [facility] calling and requesting verbal order to continue in-home Physical Therapy for patient. Please call Leia at [phone]. May leave detailed message on this secure VM. Pepper Walsh RN [facility]12-31-2024 NotePatient Outreach (INTMMN) SIA ABDUL ([id number]) 1980 F Date Time Provider Department 03/09/24 MARILEE THAKUR During your visit today, we recorded the following information about you: Allergies As of Date: 03/09/2024 Noted Allergy Reaction BEE STING 02/28/2023 10 - Anaphylaxis DILANTIN (PHENYTOIN SODIUM EXTEND*01/28/2006 Date Reviewed: 02/16/2024 Reviewed by: Lacie Reyes LPN - Fully Assessed Visit Diagnosis:Acquired hypothyroidism [E03.9] Order(s):THYROID STIMULATING HORMONE [[facility]] Order #: [id number] FUTURE Prescriptions as of 03/12/2024 - midodrine [...] 1 tablet by mouth once daily. - Dtfos-7-JVI-EPA-Fish Oil 1,000 mg (120 mg-180 mg) cap [...] content not included)...[facility]12-23-2024 Note [facility]12-20-2024 NoteHNO ID: [id number] Author: BRADLEY FLORES RN Service: ? Author Type: Registered Nurse Type: Progress Notes Filed: 02/27/2024 10:22 Note Text: Transition Care Management (TCM) Initial Outreach PCP Update / Actionable Items N/A - No specialty updates needed Patient Source: Czo-bq-Pgevevv (OON) Discharge Outreach Summary: Spoke with Shobha pt 's RN caregiver. States Jayshree had some applesauce last night and became very SOB overnight, returned to [facility] and admitted. Shobha states attending to discuss hospice with pt 's family . Advised will send FYI to PCP. Patient discharged from [facility] Discharge date: 02/26/24 Admitted for: NSTEMI/ fluid overload Readmission Risk: n/a Value-Based Contract: ACO Contact: Contact made with patient: Yes Hi, my name is Bradley Flores RN and I am calling from the [facility] on behalf of your Primary Care Provider, Marilee Thakur MD. I understand you were recently in the hospital, so I am calling to check in with you to ensure you are feeling well now that you are home. May I ask you a few questions related to your hospital stay and well-being? Pt readmitted to [facility] last night. Bradley Flores RN February 27, 2024 10:19 [facility]12-20-2024 History of Present illness Narrative* Bradley Flores RN - 02/27/2024 10:06 AM EST Transition Care Management (TCM) Initial Outreach PCP Update / Actionable Items N/A - No specialty updates needed Patient Source: Xfm-dv-Zdxxulo (OON) Discharge Outreach Summary: Spoke with Shobha pt 's RN caregiver. States Jayshree had some applesauce last night and became very SOB overnight, returned to [facility] and admitted. Shobha states attending to discuss hospice with pt 's family . Advised will send FYI to PCP. Patient discharged from [facility] Discharge date: 02/26/24 Admitted for: NSTEMI/ fluid overload Readmission Risk: n/a Value-Based Contract: ACO Contact: Contact made with patient: Yes Hi, my name is Bradley Flores RN and I am calling from the [facility] on behalf of your Primary Care Provider, Marilee Thakur MD. I understand you were recently in the hospital, so I am calling to check in with you to ensure you are feeling well now that you are home. May I ask you a few questions related to your hospital stay and well-being? Pt readmitted to [facility] last night. Bradley Flores RN February 27, 2024 10:19 AM documented in this encounterMercy [facility]12[facility]20-2024 Note* Exam Date Time Procedure Performing Provider Status 02/27/24 2:52 AM XR Chest 1 View Auth (Ve rified) [id number] ORIGINAL EXAMINATION: ONE XRAY VIEW OF THE [...] 02/27/2024 3:05:24 AM Ordering Provider: JAMILA DARDEN [facility]12-20-2024 Note* Exam Date Time Procedure Performing Provider Status 02/27/24 2:19 AM EKG [ED AOH] - CV JAMILA DARDEN MD; Auth (Verified) ECG Final Report Sinus rhythm Probable left atrial enlargement LAD, consider left anterior fascicular block Abnrm T, probable ischemia, anterolateral lds Electronic Signature: JAMILA DARDEN MD 02/27/2024 02:23:31 [facility]12-20-2024 NotePatient Outreach (AMBCMG) SIA ABDUL ([id number]) 1980 F Date Time Provider Department 02/27/24 BRADLEY FLORES During your visit today, we recorded the following information about you: Bradley Flores RN 02/27/2024 10:22 AM Signed Transition Care Management (TCM) Initial Outreach PCP Update / Actionable Items N/A - No specialty updates needed Patient Source: Ugk-eh-Weyxhrf (OON) Discharge Outreach Summary: Spoke with Shobha pt 's RN caregiver. States Jayshree had some applesauce last night and became very SOB overnight, returned to [facility] and admitted. Shobha states attending to discuss hospice with pt 's family . Advised will send FYI to PCP. Patient discharged from [facility] Discharge date: 02/26/24 Admitted for: NSTEMI/ fluid overload Readmission Risk: n/a Value-Based Contract: ACO Contact: Contact made with patient: Yes Hi, my name is Bradley Flores RN and I am calling from the [facility] on behalf of your Primary Care Provider, Marilee Thakur MD. I understand you were recently in the hospital, so I am calling to check in with you to ensure you are feeling well now that you are home. May I ask you a few questions related to your hospital stay and well-being? Pt readmitted to [facility] last night. Bradley Flores RN February 27, [...] 1 tablet by mouth once daily. - Zeakg-9-SCE-EPA-Fish Oil 1,000 mg (120 mg-180 mg) cap [...] content not included)...[facility]12-19-2024 Note [facility]12-18-2024 [facility]12-17-2024 Telephone encounter Note* Telephone Encounter - Aaliyah Gonzalez MA - 02/24/2024 9:[address] Thakur informed verbally by this MA. Aaliyah Gonzalez MA [facility]12-17-2024 Miscellaneous Notes* Telephone Encounter - Aaliyah Gonzalez MA - 02/24/2024 9:[address] Thakur informed verbally by this MA. Aaliyah Gonzalez MA * Telephone Encounter - Lillie Marshall RN - 02/24/2024 8:16 AM EST Clarence from [facility] calls and reports that he is [...] evaluated. Clarence agrees and voices understanding. 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 Lillie Marshall RN documented in this encounterMercy Health [facility]12-17-2024 Telephone encounter Note * Telephone Encounter - Lillie Marshall RN - 02/24/2024 8:16 AM EST Clarence from [facility] calls and reports that he is [...] evaluated. Clarence agrees and voices understanding. 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 Lillie Marshall RN [facility]12-16-2024 Telephone encounter Note* Telephone Encounter - María Avila MA - 02/23/2024 2:30 PM EST Leia notified. [facility]12-16-2024 Miscellaneous Notes* Telephone Encounter - María Avila MA - 02/23/2024 2:30 PM EST Leia notified. * Telephone Encounter - Mika Kaplan APRN.CNP - 02/23/2024 11:37 AM EST Ok with therapy order Thank you Mika Kaplan APRN.CNP * Telephone Encounter - Pamela Singh LPN - 02/23/2024 10:08 AM EST Leia with [facility], PT calling. Pt out of the hospital last week and is in need of PT in home. Did re-evaluation and asking for verbal orders to continue PT in home. DX acute, chronicsystolic heart failure and kidney injury. Please advise Leia with a verbal orders. Pamela Singh LPN documented in this encounterMercy Health [facility]12-16-2024 Telephone encounter Note * Telephone Encounter - Mika Kaplan APRN.OBED - 02/23/2024 11:37 AM EST Ok with therapy order Thank you Mika Kaplan APRN.BULB INSPECTOR [facility]12-16-2024 Telephone encounter Note* Telephone Encounter - Pamela Singh LPN - 02/23/2024 10:08 AM EST Leia with [facility], PT calling. Pt out of the hospital last week and is in need of PT in home. Did re-evaluation and asking for verbal orders to continue PT in home. DX acute, chronicsystolic heart failure and kidney injury. Please advise Leia with a verbal orders. Pamela Singh LPN [facility]12-13-2024 NoteHNO ID: [id number] Author: BRADLEY FLOERS RN Service: ? Author Type: Registered Nurse Type: Progress Notes Filed: 02/20/2024 11:24 Note Text: Transition Care Management (TCM) Initial Outreach PCP Update / Actionable Items HRTIC TCM Home Visit Referral Source of Stratification: TCM [facility] Admission Status: Discharged Readmission Risk Score: n/a Patient's zip code: [address] Is zip code within program service area: No Patient meets program referral criteria: No Patient does not qualify for High Risk TCM Home Visit program due to: Readmission Risk Score does not meet criteria Disposition: Patient does not qualify for HRTIC, will provide TCM outreach follow-up for 30-days Patient Source: Wxn-bo-Irqathw (OON) Discharge Outreach Summary: Spoke with adryan Yeager manager telemetry with [facility]- States Jayshree 's leg swelling currently improved. Will check BP and weight daily. Weight yesterday prior to dc was 291 lbs, today is 287 lbs- States pt is not having any dizziness, SOB , lightheadedness today. Discussed compression leg pumps - currently not working and they are attempting to obtain new pumps with documentation needed for insurance reapproval. Patient discharged from [facility] Discharge date: 02/19/24 Admitted for: Hypotension Readmission Risk: n/a Value-Based Contract: ACO Contact: Contact made with patient: Yes Hi, my name is Bradley Flores RN and I am calling from the [facility] on behalf of your Primary Care Provider, Marilee Thakur MD. I understand you were recently in the hospital, so I am calling to check in with you to ensure you are feeling well now that you are home. May I ask you a few questions related to your hospital stay and well-being? Yes Spoke to: RODRÍGUEZ Yeager skilled nursing Validation: Validated the person spoken to is [...] , Also noted Midodrine was rx at [facility], added to med list. Lisinopril and K+ [...] like to speak with a social work hat steamer to help give you support for any [...] I will send your request to a camera tuning engineer who will contact and assist you with [...] Bradley Flores RN February 20, 2024 11:05 [facility]12-13-2024 History of Present illness Narrative* Bradley Flores RN - 02/20/2024 10:58 AM EST Transition Care Management (TCM) Initial Outreach PCP Update / Actionable Items HRTIC TCM Home Visit Referral Source of Stratification: TCM [facility] Admission Status: Discharged Readmission Risk Score: n/a Patient's zip code: [address] Is zip code within program service area: No Patient meets program referral criteria: No Patient does not qualify for High Risk TCM Home Visit program due to: Readmission Risk Score does not meet criteria Disposition: Patient does not qualify for HRTIC, will provide TCM outreach follow-up for 30-days Patient Source: Jah-tw-Ukjnrjj (OON) Discharge Outreach Summary: Spoke with adryan Yeager manager telemetry with [facility]- States Jayshree 's leg swelling currently improved. Will check BP and weight daily. Weight yesterday prior to dc was 291 lbs, today is 287 lbs- States pt is not having any dizziness, SOB , lightheadedness today. Discussed compression leg pumps - currently not working and they are attempting to obtain new pumpswith documentation needed for insurance reapproval. Patient discharged from [facility] Discharge date: 02/19/24 Admitted for: Hypotension Readmission Risk: n/a Value-Based Contract: ACO Contact: Contact made with patient: Yes Hi, my name is Bradley Flores RN and I am calling from the [facility] on behalf of your Primary Care Provider, Marilee Thakur MD. I understand you were recently in the hospital, so I am calling to check in with you to ensure you are feeling well now that you are home. May I ask you a few questions related to your hospital stay and well-being? Yes Spoke to: RODRÍGUEZ Yeager skilled nursing Validation: Validated the person spoken to is [...] , Also noted Midodrine was rx at [facility], added to med list. Lisinopril and K+ [...] like to speak with a social work hat steamer to help give you support for any [...] I will send your request to a camera tuning engineer who will contact and assist you with [...] 20, 2024 11:05 AM documented in this encounterMercy Health [facility]12-13-2024 NotePatient Outreach (KIMCMG) SIA ABDUL ([id number]) 1980 F Date Time Provider Department 02/20/24 BRADLEY FLORES During your visit today, we recorded the following information about you: Bradley Flores RN 02/20/2024 11:24 AM Signed Transition Care Management (TCM) Initial Outreach PCP Update / Actionable Items HRTIC TCM Home Visit Referral Source of Stratification: [facility]CM [facility] Admission Status: Discharged Readmission Risk Score: n/a Patient's zip code: [address] Is zip code within program service area: No Patient meets program referral criteria: No Patient does not qualify for High Risk TCM Home Visit program due to: Readmission Risk Score does not meet criteria Disposition: Patient does not qualify for HRTIC, will provide TCM outreach follow-up for 30-days Patient Source: Ysd-vy-Fwyuppv (OON) Discharge Outreach Summary: Spoke with adryan Yeager manager telemetry with [facility]- States Jayshree 's leg swelling currently improved. Will check BP and weight daily. Weight yesterday prior to dc was 291 lbs, today is 287 lbs- States pt is not having any dizziness, SOB , lightheadedness today. Discussed compression leg pumps - currently not working and they are attempting to obtain new pumps with documentation needed for insurance reapproval. Patient discharged from [facility] Discharge date: 02/19/24 Admitted for: Hypotension Readmission Risk: n/a Value-Based Contract: ACO Contact: Contact made with patient: Yes Hi, my name is Bradley Flores RN and I am calling from the [facility] on behalf of your Primary Care Provider, Marilee Thakur MD. I understand you were recently in the hospital, so I am calling to check in with you to ensure you are feeling well now that you are home. May I ask you a few questions related to your hospital stay and well-being? Yes Spoke to: RODRÍGUEZ Yeager skilled nursing Validation: Validated the person spoken to is [...] , Also noted Midodrine was rx at [facility], added to med list. Lisinopril and K+ [...] like to speak with a social work hat steamer to help give you support for any [...] I will send your request to a camera tuning engineer who will contact and assist you with [...] Management partners utilized: N/A Bradley Flores RN [facility] (more content not included)...[facility]12-12-2024 Note [facility]12-09-2024 NoteHNO ID: [id number] Author: MARILEE THAUKR MD Service: ? Author Type: Physician Type: [...] content not included)...[facility]12-09-2024 History of Present illness Narrative* Marilee Thakur [...] KNEE COMPRESSION) misc multivitamin-ferrous fumarate-folic acid (CERTAVITE-ANTIOXIDANT) Boppe-7-HMJ-EPA-Fish Oil 1,000 mg (120 mg-180 mg) cap [...] MEDICINE Marilee Thakur MD documented in this encounterMercy Health [facility]12-03-2024 Telephone encounter Note * Telephone Encounter - Aaliyah Gonzalez MA - 02/10/2024 4:45 PM EST Leia notified and verbalized understanding. Aaliyah Gonzalez MA [facility]12-03-2024 Miscellaneous Notes* Telephone Encounter - Aaliyah Gonzalez MA - 02/10/2024 4:45 PM EST Leia notified and verbalized understanding. Aaliyah Gonzalez MA * Telephone Encounter - Marilee Thakur MD - 02/10/2024 4:40 PM EST Verbal ok for the same Regards, Marilee Thakur MD * Telephone Encounter - Pamela Singh LPN - 02/10/2024 11:07 AM EST Leia with [facility], PT calling to see if you will give verbal orders for PT to comein to the home after hospitalization. DX. weakness and difficulty getting around. Please advise Leia with Verbal order to follow and sign. Pamela Singh LPN documented in this encounterMercy Health [facility]12-03-2024 Telephone encounter Note * Telephone Encounter - Marilee Thakur MD - 02/10/2024 4:40 PM EST Verbal ok for the same Regards, Marilee Thakur MD [facility]12-03-2024 Telephone encounter Note* Telephone Encounter - Pamela Singh LPN - 02/10/2024 11:07 AM EST Leia with [facility], PT calling to see if you will give verbal orders for PT to comein to the home after hospitalization. DX. weakness and difficulty getting around. Please advise Leia with Verbal order to follow and sign. Pamela Singh LPN [facility]12-02-2024 Telephone encounter Note* Telephone Encounter - [...] Cerna LPN February 09, 2024 2:37 PM [facility]12-02-2024 Miscellaneous Notes* Telephone Encounter - Pascale [...] 09, 2024 2:37 PM documented in this encounterMercy Health [facility] Hospital11-29-2024 NoteHNO ID: [id number] Author: MARILEE THAKUR MD Service: ? Author Type: Physician Type: Progress Notes Filed: 02/06/2024 14:56 Note Text: [facility]Select [facility] History of Present illness Narrative* Marilee Thakur MD - 02/06/2024 12:49 PM EST Duplicate note * Marilee Thakur MD - 02/06/2024 11:37 AM EST Reason for Visit Patient presents with: Hospital F/U: TCM [facility] 01/26/24 dx CHF Sia Abdul is a [...] calcifications. 02/06/24: She is here with her home care chaplain. 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 She is on toresemide, I [...] 12 % cream multivitamin-ferrous fumarate-folic acid (CERTAVITE-ANTIOXIDANT) Kjxix-7-OIT-EPA-Fish Oil 1,000 mg (120 mg-180 mg) cap [...] tablet Leg Brace (TRUE CMFT KNEE COMPRESSION) [facility] MEDICAL SUPPLY Gauze Bandage 2 X [...] worse. Marilee Thakur MD documented in this encounterMer[facility]11-29-2024 NoteHNO ID: [id number] Author: MARILEE THAKUR MD Service: ? Author Type: Physician Type: Progress Notes Filed: 02/06/2024 14:56 Note Text: Reason for Visit Patient presents with: Hospital F/U: TCM [facility] 01/26/24 dx CHF Sia Abdul is a [...] calcifications. 02/06/24: She is here with her home care chaplain. 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 She is on toresemide, I [...] content not included)...[facility]11-27-2024 NoteHNO ID: [id number] Author: BRADLEY FLORES RN Service: ? Author Type: Registered Nurse Type: Progress Notes Filed: 02/04/2024 10:38 Note Text: Transitional Care Management (TCM) Follow-Up Note PCP Update / Actionable Items N/A - No specialty updates needed Patient Source: Ohs-rt-Fcurbmc (OON) Discharge Outreach Summary: Shobha Martell is doing well on Torsemide BID. She is losing 2-3 lbs a day. She is elevating her legs often during the day. Has been watching sodium and fluid rest. closely. Had one episode of dizziness while attempting to stand earlier this week and they are monitoring closely. PCP f/u 02/05 Patient discharged from [facility] Discharge date: 01/26/24 Admitted for: CHF Readmission Risk: n/a Value-Based Contract: ACO Contact: Contact made with patient: Yes Spoke to: Shobha ARREGUIN , manager group home Validation: Validated the person spoken to is [...] Bradley Flores RN February 04, 2024 10:35 [facility]11-27-2024 History of Present illness Narrative* Bradley Flores RN - 02/04/2024 10:33 AM EST Transitional Care Management (TCM) Follow-Up Note PCP Update / Actionable Items N/A - No specialty updates needed Patient Source: Ish-uz-Mvsfxuw (OON) Discharge Outreach Summary: Shobha Martell is doing well on Torsemide BID. She is losing 2-3 lbs a day. She is elevating her legs often during the day. Has been watching sodium and fluid rest. closely. Had one episode of dizziness while attempting to stand earlier this week and they are monitoring closely. PCP f/u 02/05 Patient discharged from [facility] Discharge date: 01/26/24 Admitted for: CHF Readmission Risk: n/a Value-Based Contract: ACO Contact: Contact made with patient: Yes Spoke to: Shobha ARREGUIN , manager group home Validation: Validated the person spoken to is [...] 04, 2024 10:35 AM documented in this encounterMercy Health Willard Hospital11-27-2024 Telephone encounter Note * Telephone Encounter - Aaliyah Gonzalez MA - 02/04/2024 8:56 AM EST Clarence ruelas [facility] notified. Aaliyah Gonzalez MA [facility]11-27-2024 Miscellaneous Notes* Telephone Encounter - Aaliyah Gonzalez MA - 02/04/2024 8:56 AM EST Claernce at [facility] notified. Aaliyah Gonzalez MA * Telephone Encounter - Marilee Thakur MD - 02/03/2024 5:06 PM EST Yes will sign Marilee Lassiter MD * Telephone Encounter - Lillie Marshall RN - 02/03/2024 1:32 PM EST Clarence from [facility] calls asking if provider will continue to sign orders for long term, physical therapy, and occupational therapy. Lillie Marshall, RN documented in this encounterMercy Health Willard Hospital11-27-2024 NotePatient Outreach ([facility]BCMG) SIA ABDUL ([id number]) 1980 F Date Time Provider Department 02/04/24 BRADLEY FLORES During your visit today, we recorded the following information about you: Bradley Flores, RN 02/04/2024 10:38 AM Signed Transitional Care Management (TCM) Follow-Up Note PCP Update / Actionable Items N/A - No specialty updates needed Patient Source: Kdn-ng-Rvjilnd (OON) Discharge Outreach Summary: Shobha eastman Jayshree is doing well on Torsemide BID. She is losing 2-3 lbs a day. She is elevating her legs often during the day. Has been watching sodium and fluid rest. closely. Had one episode of dizziness while attempting to stand earlier this week and they are monitoring closely. PCP f/u 02/05 Patient discharged from [facility] Discharge date: 01/26/24 Admitted for: CHF Readmission Risk: n/a Value-Based Contract: ACO Contact: Contact made with patient: Yes Spoke to: Shobha ARREGUIN , manager group home Validation: Validated the person spoken to is [...] 1 tablet by mouth once daily. - Vzqjo-0-JXJ-EPA-Fish Oil 1,000 mg (120 mg-180 mg) cap [...] content not included)...[facility]11-26-2024 Telephone encounter Note* Telephone Encounter - Marilee Thakur MD - 02/03/2024 5:06 PM EST Yes will sign Marilee Lassiter MD [facility]11-26-2024 Telephone encounter Note* Telephone Encounter - Lillie Marshall RN - 02/03/2024 1:32 PM EST Clarence from [facility] calls asking if provider will continue to sign orders for long term, physical therapy, and occupational therapy. Lillie Marshall RN [facility]11-25-2024 Telephone encounter Note* Telephone Encounter - [...] Marshall RN February 02, 2024 11:[address] [facility]11-25-2024 Miscellaneous Notes* Telephone Encounter - Lillie [...] 02, 2024 11:54 AM documented in this encounterMercy Health Willard Hospital11-20-2024 NoteHNO ID: [id number] Author: NEETA RUTHERFORD, ? Service: ? 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 Type: Progress Notes Filed: 01/28/2024 10:04 Note Text: POPULATION HEALTH NAVIGATION OUTREACH Action/FYI Scheduled TCM appt 02-06-2024 Tcm eligible until 02-09-2024 Patient discharged from [facility] Discharge date: 01/26/24 Admitted for: CHF Reason for Outreach Community Monitoring/Network Navigator Pools AND Phone Line: TCM Patient Contacted: Spoke to patient/parent/or legal guardian Patient identified by name and : Yes Community Monitoring/Network Navigator Pools AND Phone Line actions taken: Patient scheduled: Hospital Follow-up 02/06/2024 in [facility] with MARILEE THAKUR - hospital follow up , tcm eligible until 02-09-2024 02/20/2024 in [facility] with MARILEE THAKUR - 3 mo follow up; BL lymphedema 03/22/2024 in [facility] with OLDER, MIKA - physical Navigation Signature: Neeta Rutherford Population Health Navigator January 28, 2024 10:03 [facility]11-20-2024 History of Present illness Narrative* Neeta Rutherford - 01/28/2024 10:03 AM EST POPULATION HEALTH NAVIGATION OUTREACH Action/FYI Scheduled TCM appt 02-06-2024 Tcm eligible until 02-09-2024 Patient discharged from [facility] Discharge date: 01/26/24 Admitted for: CHF Reason for Outreach Community Monitoring/Network Navigator Pools & Phone Line: TCM Patient Contacted: Spoke to patient/parent/or legal guardian Patient identified by name and : Yes Community Monitoring/Network Navigator Pools & Phone Line actions taken: Patient scheduled: Hospital Follow-up 02/06/2024 in [facility] with MARILEE THAKUR - hospital follow up , tcm eligible until 02-09-2024 02/20/2024 in [facility] with MARILEE THAKUR - 3 mo follow up; BL lymphedema 03/22/2024 in [facility] with OLDER, MIKA - physical Navigation Signature: Neeta Rutherford, Population Health Navigator January 28, 2024 10:03 AM * Bradley Flores RN - 01/28/2024 9:21 AM EST Transition Care Management (TCM) Initial Outreach Navigation Team Please assist with scheduling TCM Hospital Discharge Follow up. TCM Eligible until 02/09/24. Please call Shobha Dallas pt 's manager group home at [phone] to schedule. Thank you [facility] TCM Home Visit Referral Source of Stratification: [facility] Hospital Admission Status: Discharged Readmission Risk Score: n/a Patient's zip code: [address] Is zip code within program service area: No Patient meets program referral criteria: No Patient does not qualify for High Risk TCM Home Visit program due to: Readmission Risk Score does not meet criteria [facility]: [facility] will provide TCM outreach follow-up for 30-days Patient Source: Pmk-xh-Sdbkssu (OON) Discharge Outreach Summary: Shobha reports patient [...] TCM 30 day following. Patient discharged from [facility] Discharge date: 01/26/24 Admitted for: CHF Readmission Risk: n/a Value-Based Contract: ACO Chief Complaint: Dyspnea, weight gain, edema. HPI Narrative The patient is a 43 y/o F w/ PMHx: Morbid obesity, COPD w/ allergic rhinitis, Pulmonary HTN following w/ Dr. 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 Patient reports seeing a new dental floss packer in [employer] the Friday prior who discontinued her Lasix and Bumex with initiation on decreased dose of Lasix 20 mg twice daily with plan at that time [place] dental floss packer on 01/23/2024 with similar symptoms to previous [...] with patient: Yes Hi, my name is Bardley Flores RN and I am calling [facility] the [facility] on behalf of your Primary Care Provider, Marilee Thakur MD. I understand you were recently in the hospital, so I am calling to check in with you to ensure you are feeling well now that you are home. May I ask you a few questions related to your hospital stay and well-being? Yes Spoke to: Shobha Dallas , manager group home Validation: Validated the person spoken to is [...] like to speak with a social work hat steamer to help give you support for any [...] I will send your request to a camera tuning engineer who will contact and assist you with that appointment. This will give you an opportunity to ask any questions or address any concerns youmay have with your PCP. Inform the patient that if they have any questions or concerns prior to that appointment, to call their PCP's office right away. Appointment Action: Patient desires an appointment. Complete Navigation Team box and route to [facility] ([id number]) for scheduling. Education Heart Failure Education Provided [...] 28, 2024 9:31 AM documented in this encounterMercy Health Willard Hospital11-20-2024 NoteHNO ID: [id number] Author: BRADLEY FLORES RN Service: ? Author Type: Registered Nurse Type: Progress Notes Filed: 02/20/2024 11:23 Note Text: Transition Care Management (TCM) Initial Outreach Navigation Team Please assist with scheduling TCM Hospital Discharge Follow up. TCM Eligible until 02/09/24. Please call Shobha Dallas pt 's manager group home at [phone] to schedule. [facility] Home Visit Referral Source of Stratification: TCM [facility] Hospital Admission Status: Discharged Readmission Risk Score: n/a Patient's zip code: [address] Is zip code within program service area: No Patient meets program referral criteria: No Patient does not qualify for High Risk TCM Home Visit program due to: Readmission Risk Score does not meet criteria Disposition: [facility], will provide TCM outreach follow-up for 30-days Patient Source: Dif-ih-Dbbizmv (OON) Discharge Outreach Summary: Shobha reports patient [...] TCM 30 day following. Patient discharged from [facility] Discharge date: 01/26/24 Admitted for: CHF Readmission Risk: n/a Value-Based Contract: ACO Chief Complaint: Dyspnea, weight gain, edema. HPI Narrative The patient is a 43 y/o F w/ PMHx: Morbid obesity, COPD w/ allergic rhinitis, Pulmonary HTN following w/ Dr. 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 Patient reports seeing a new dental floss packer in [employer] the Friday prior who discontinued her Lasix and Bumex with initiation on decreased dose of Lasix 20 mg twice daily with plan at that time [place] dental floss packer on 01/23/2024 with similar symptoms to previous [...] RN and I am calling from the [facility] on behalf of your Primary Care Provider, Marilee Thakur MD. I understand you were recently in the hospital, so I am calling to check in with you to ensure you are feeling well now that you are home. May I ask you a few questions related to your hospital stay and well-being? Yes Spoke to: Shobha Dallas , manager group home Validation: Validated the person spoken to is [...] content not included)...[facility]11-20-2024 Note Patient Outreach (KIMG) SIA ABDUL ([id number]) 1980 F Date Time Provider Department 01/28/24 BRADLEY FLORES During your visit today, we recorded the following information about you: Bradley Flores RN 02/20/2024 11:23 AM Addendum Transition Care Management (TCM) Initial Outreach Navigation Team Please assist with scheduling TCM Hospital Discharge Follow up. TCM Eligible until 02/09/24. Please call Shobha Dallas pt 's manager group home at [phone] to schedule. Thank you [facility] TCM Home Visit Referral Source of Stratification: [facility] Hospital Admission Status: Discharged Readmission Risk Score: n/a Patient's zip code: [address] Is zip code within program service area: No Patient meets program referral criteria: No Patient does not qualify for High Risk TCM Home Visit program due to: Readmission Risk Score does not meet criteria Disposition: Patient does not qualify for [facility], will provide TCM outreach follow-up for 30-days Patient Source: Fit-ry-Pjxkqod (OON) Discharge Outreach Summary: Shobha reports patient [...] TCM 30 day following. Patient discharged from [facility] Discharge date: 01/26/24 Admitted for: CHF Readmission Risk: n/a Value-Based Contract: ACO Chief Complaint: Dyspnea, weight gain, edema. HPI Narrative The patient is a 43 y/o F w/ PMHx: Morbid obesity, COPD w/ allergic rhinitis, Pulmonary HTN following w/ Dr. 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 Patient reports seeing a new dental floss packer in [employer] the Friday prior who discontinued her Lasix and Bumex with initiation on decreased dose of Lasix 20 mg twice daily with plan at that time [place] dental floss packer on 01/23/2024 with similar symptoms to previous [...] RN and I am calling from the [facility] on behalf of your Primary Care Provider, Marilee Thakur MD. I understand you were recently in the hospital, so I am calling to check in with you to ensure you are feeling well now that you are home. May I ask you a few questions related to your hospital stay and well-being? Yes Spoke to: Shobha Dallas , manager group home Validation: Validated the person spoken to is [...] content not included)...[facility]11-18-2024 [facility] 01-23-2024 Telephone encounter Note* Telephone Encounter - Mika Kaplan APRN.CNP - 01/23/2024 12:16 PM EST Noted. Will need hospital follow up once discharged. Mika Kaplan APRN.CNP [facility]11-15-2024 Miscellaneous Notes* Telephone Encounter - Mika Kaplan APRN.CNP - 01/23/2024 12:16 PM EST Noted. Will need hospital follow up once discharged. Mika Kaplan APRN.CNP * Telephone Encounter - Candelaria Ball LPN - 01/23/2024 10:31 AM EST Clarence from [facility] calling patient Cariologist took her off the bumex and furosemide and put her on torsemide 20 mg twice daily. Last night her weight was 297.6 pounds. Patient is admitted to [facility] today with CHF. documented in this encounterMercy Health Willard Hospital11-15-2024 Telephone encounter Note * Telephone Encounter - Candelaria Ball LPN - 01/23/2024 10:31 AM EST Clarence from [facility] calling patient Cariologist took her off the bumex and furosemide and put her on torsemide 20 mg twice daily. Last night her weight was 297.6 pounds. Patient is admitted to [facility] today with CHF. [facility]11-15-2024 Telephone encounter Note* Telephone Encounter - Mika Kaplan APRN.CNP - 01/23/2024 7:21 AM EST Patient currently admitted to hospital with CHF. Will need orders once discharged. Thank you Mika Kaplan APRN.CNP [facility]11-15-2024 Miscellaneous Notes* Telephone Encounter - Mika [...] 2:31 PM EST Clarence Calderon nurse with [facility] calling to see if he can get an order from provider's office for PT/OT for pt. Pt has significant health issues (seeing dental floss packer) and appears to be having more difficulty getting around. Having trouble getting on and off the bus to go to [employer]. Hoping to get PT/OT to evaluate and treat. No need to call Clarence back. If okay, please fax orders to [phone] [facility]. documented in this encounterMercy Health Willard Hospital11-14-2024 NoteHNO ID: [id number] Author: MARTELL GARLAND, RN Service: ? Author Type: Registered Nurse Type: Progress Notes Filed: 01/22/2024 16:10 Note Text: Transitional Care Management (TCM) Follow-Up Note PCP Update / Actionable Items Day 20 Future Appts 02/19 Intm Wstr 03/22/24 Intm Wstr N/A - No specialty updates needed Patient Source: Xde-uc-Fynebym (OON) Discharge Outreach Summary: Spoke with Shobha/Wire Preparation Machine Tender at [facility], states patient is not feeling that great, [...] , no issues, stable Patient discharged from [facility] Discharge date: 01/02/24 Admitted for: HF,Dyspnea, [...] Martell Garland RN January 22, 2024 4:07 [facility]11-14-2024 History of Present illness Narrative* Martell Garland RN - 01/22/2024 4:00 PM EST Transitional Care Management (TCM) Follow-Up Note PCP Update / Actionable Items Future Appts 02/19 Intm Wstr 03/22/24 Int Wstr N/A - No specialty updates needed Patient Source: Nrt-pz-Xqsojbh (OON) Discharge Outreach Summary: Spoke with Shobha/Wire Preparation Machine Tender at [facility], states patient is not feeling that great, [...] , no issues, stable Patient discharged from [facility] Discharge date: 01/02/24 Admitted for: HF,Dyspnea, [...] 22, 2024 4:07 PM documented in this encounterMercy Health Willard Hospital11-14-2024 Telephone encounter Note * Telephone Encounter - Mika Kaplan APRN.CNP - 01/22/2024 3:14 PM EST Agree with need for PT/OT and agree to follow. Thank you Mika Kaplan APRN.CNP [facility]11-14-2024 Telephone encounter Note* Telephone Encounter - Kristine Hayes, RODRÍGUEZ - 01/22/2024 2:31 PM EST Clarence Calderon nurse with [facility] calling to see if he can get an order from provider's office for PT/OT for pt. Pt has significant health issues (seeing dental floss packer) and appears to be having more difficulty getting around. Having trouble getting on and off the bus to go to [employer]. Hoping to get PT/OT to evaluate and treat. No need to call Clarence back. If okay, please fax orders to [phone] [facility]. [facility]11-14-2024 NotePatient Outreach (AMBCMG) SIA ABDUL ([id number]) 1980 F Date Time Provider Department 01/22/24 MARTELL GARLAND [facility] During your visit today, we recorded the following information about you: Martell Garland, RODRÍGUEZ 01/22/2024 4:10 PM Signed Transitional Care Management (TCM) Follow-Up Note PCP Update / Actionable Items Future Appts 02/19 Intm Wstr 03/22/24 Int Wstr N/A - No specialty updates needed Patient Source: Qnv-yf-Dygudod (OON) Discharge Outreach Summary: Spoke with Shobha/Wire Preparation Machine Tender at [facility], states patient is not feeling that great, [...] , no issues, stable Patient discharged from [facility] Discharge date: 01/02/24 Admitted for: HF,Dyspnea, [...] Assessed Reason for Visit: Transition Of Care [7405] Cmt: TCM [facility] Follow-up Day 20 Prescriptions as of [...] 2 SPRAYS IN EACH NOSTRIL DAILY - Tssdw-8-YJO-EPA-Fish Oil 1,000 mg (120 mg-180 mg) cap [...] content not included)...[facility]11-12-2024 Telephone encounter Note* Telephone Encounter - Marilee Thakur MD - 01/20/2024 6:01 PM EST Noted Regards, Marilee Thakur MD [facility]11-12-2024 Miscellaneous Notes* Telephone Encounter - Marilee Thakur MD - 01/20/2024 6:01 PM EST Noted RegardsMarilee MD * Telephone Encounter - Eulalia Laureano RN - 01/20/2024 12:42 PM EST Shobha returns call and message below reviewed. Shobha reports that patient was to see dental floss packer Isi Goodman with . Bumex and Furosemide were both stopped. Patient was placed on Demadex 20 mg twice daily for now. Shobha reports that per Dr. Goodman, patient is not absorbing the Bumex or furosemide and obesity could be a factor. Eulalia Laureano RN * Telephone Encounter - Pepper Walsh RN - 01/20/2024 8:41 AM EST VM left for Shobha to call provider's office for message below. Pepper Walsh RN * Telephone Encounter - Marilee Thakur MD - 01/19/2024 5:32 PM EST Stop the lasix And give her 2 mgs of bumex for the next 3 days Regards, Marilee Thakur MD * Telephone Encounter - Lillie Marshall RN - 01/19/2024 8:58 AM EST [facility] to report that patient has had a 15 pound weight gain since Friday. Patient currently is on Bumex and Lasix. Patient has a little swelling in ankles and wrists. Patient has some swelling in Abdomen. Patient is not complaining of shortness of breath. Please review and advise, Lillie Marshall RN documented in this encounterMercy Health Willard Hospital11-12-2024 Telephone encounter Note * Telephone Encounter - Eulaila Laureano RN - 01/20/2024 12:42 PM EST Shobha returns call and message below reviewed. Shobha reports that patient was to see dental floss packer Isi Goodman with . Bumex and Furosemide were both stopped. Patient was placed on Demadex 20 mg twice daily for now. Shobha reports that per Dr. Goodman, patient is not absorbing the Bumex or furosemide and obesity could be a factor. Eulalia Laureano RN [facility]11-12-2024 Telephone encounter Note* Telephone Encounter - Pepper Walsh RN - 01/20/2024 8:41 AM EST VM left for Shobha to call provider's office for message below. Pepper Walsh RN [facility]11-12-2024 History of Present illness Narrative* Isi [...] pulmonary embolism. Patient was referred by her inhalation therapy aide to establish care with general cardiology. Patient [...] , Rfl: ergocalciferol (Vitamin D-2) 1.25 MG (79223 UT) capsule, Take by mouth., Disp: , Rfl: fish oil concentrate (Powderly-3) 120-180 mg capsule, Take 1 capsule (1 [...] Pulse 74 Wt 133 kg (294 lb) OiP454% BMI 65.21 kg/m Physical Exam: Physical Exam [...] testing Isi Goodman MD documented in this encounterSelect [facility] Work Phone: 1(357) 636-694111-12-2024 Instructions* Patient Instructions* Isi Goodman MD - 01/20/2024 8:30 AM EST We are stopping furosemide (lasix) and bumex; we are starting torsemide 20 mg twice a day (8 AM / 2PM). To further evaluate your shortness of breath and leg swelling we will check the heart with a heart ultrasound / echocardiogram. Thank you for your visit today. Please contact our office (via [employer] or phone) with any additional questions. [facility] [place] Corinne, RODRÍGUEZ/Clinic Nurse for: Dr. Maxine Nicolas [address], [address] [place] [address] Press Option 5 then Option 3 to speak with the Clinic Nurse (Corinne) To Reach: Billing Questions - [phone] Scheduling / Rescheduling - Option 1 Refills / Medication Requests - Option 3 General Office / Senior Software Development Manager - Option 4 Results - Option 6 Medical Records - Option 7 Repeat Options - Option 9 documented in [facility]Select [facility] Work Phone: [phone] Telephone encounter Note* Telephone Encounter - Marilee Thakur MD - 01/19/2024 5:32 PM EST Stop the lasix And give her 2 mgs of bumex for the next 3 days Regards, Marilee Thakur MD [facility]11-11-2024 Telephone encounter Note* Telephone Encounter - Lillie Marshall RN - 01/19/2024 8:58 AM EST [facility] calls to report that patient has had a 15 pound weight gain since Friday. Patient currently is on Bumex and Lasix. Patient has a little swelling in ankles and wrists. Patient has some swelling in Abdomen. Patient is not complaining of shortness of breath. Please review and advise, Lillie Marshall RN [facility]11-06-2024 Telephone encounter Note* Telephone Encounter - Mima Parson LPN - 01/14/2024 2:19 PM EST [facility] from [facility] notified Rx has been sent in & to start medication today. Shobha will check with pharm & get med from them. Mima Parson LPN [facility]11-06-2024 Miscellaneous Notes* Telephone Encounter - Mima Parson LPN - 01/14/2024 2:19 PM EST [facility] from [facility] notified Rx has been sent in & to start medication today. Shobha will check with pharm & get med from them. Mima Parson LPN * Telephone Encounter - Mika Kaplan APRN.CNP - 01/14/2024 1:34 PM EST Order sent. Please verify they are starting this today as she continues to have weight gain. Thank you Mika Kaplan APRN.BULB INSPECTOR * Telephone Encounter - Mima Parson LPN - 01/14/2024 11:59 AM EST Shobha calling [facility] asking if Bumex can be sent in [...] since yesterday pt is now 284 #. [facility]. They will be starting medication tomorrow 01-15-24 and will come in on Friday01/19/24 to get lab work done. If anything else is needed please call Clarecne. Clarence will be keeping you updated on pt's weight and symptoms. Pamela Singh LPN * Telephone Encounter - Marilee Thakur MD - 01/13/2024 5:38 PM EST I want to give her bumex 1 mgs daily for 5 days and recheck her labs after that. Please let me know which pharmacy to call the medications into Marilee Lassiter MD * Telephone Encounter - Candelaria aBll LPN - 01/13/2024 8:08 AM EST Clarence from [facility] calling patient weight Friday was 274 pounds. Patient weight this morning at 745 am is 278 pounds. Patient uses [facility] for the pharmacy. Please notify Clarence with any changes and also Shobha at [facility] [phone]. Please advise [facility] Telephone encounter Note * Telephone Encounter - Mika Kaplan APRN.CNP - 01/14/2024 1:34 PM EST Order sent. Please verify they are starting this today as she continues to have weight gain. Thank you Mika Kaplan APRN.OBED [facility]11-06-2024 Telephone encounter Note* Telephone Encounter - Mima Parson LPN - 01/14/2024 11:59 AM EST Shobha calling [facility] asking if Bumex can be sent in today as they want to start pt on it today? Order pending review. Mima Parson LPN [facility]11-06-2024 Telephone encounter Note* Telephone Encounter - Pamela Singh LPN - 01/14/2024 8:11 AM EST Spoke with Clarence and message below given. Clarence wanted to update you with progress on pt. She has gained another 6 pounds since yesterday pt is now 284 #. [facility]. They will be starting medication tomorrow 01-15-24 and will come in on Friday01/19/24 to get lab work done. If anything else is needed please call Clarence. Clarence will be keeping you updated on pt's weight and symptoms. Pamela Singh LPN [facility]11-05-2024 Telephone encounter Note* Telephone Encounter - Marilee Thakur MD - 01/13/2024 5:38 PM EST I want to give her bumex 1 mgs daily for 5 days and recheck her labs after that. Please let me know which pharmacy to call the medications into Regards, Marilee Ganta MD [facility]11-05-2024 Telephone encounter Note* Telephone Encounter - Candelaria Ball LPN - 01/13/2024 8:08 AM EST Clarence from [facility] calling patient weight Friday am was 274 pounds. Patient weight this morning at 745 am is 278 pounds. Patient uses [facility] for the pharmacy. Please notify Clarence with any changes and also Shobha at [facility] [phone]. Please advise [facility]11-04-2024 Note* Addendum Note - Marilee Thakur MD - 01/12/2024 2:29 PM ESTAddended by: MARILEE THAKUR on: 01/12/2024 02:29 PM Modules accepted: Level of Service [facility]11-04-2024 Miscellaneous Notes* Addendum Note - Marilee Thakur MD - 01/12/2024 2:29 PM ESTAddended by: MARILEE THAKUR on: 01/12/2024 02:29 PM Modules accepted: Level of Service documented in this encounterMercy [facility]11-04-2024 Telephone encounter Note * Telephone Encounter - Aaliyah Gonzalez MA - 01/12/2024 12:48 PM EST Faxed as requested. Aaliyah Gonzalez MA [facility]11-04-2024 Miscellaneous Notes* Telephone Encounter - Aaliyah Gonzalez MA - 01/12/2024 12:48 PM EST Faxed as requested. Aaliyah Gonzalez MA * Telephone Encounter - Mika Kaplan APRN.CNP - 01/12/2024 12:10 PM EST Orders placed. Please fax as requested Thank you Mika Kaplan APRN.CNP * Telephone Encounter - Aaliyah Gonzalez MA - 01/12/2024 10:16 AM EST Patient needs orders for Pneumatic compression, stockings, and wraps. Orders pended. Please file if agreeable. Once ordered, will need to fax [facility] to [facility] at [phone], ATTN Shobha/Rafia Gonzalez MA documented in this encounterMer[facility]11-04-2024 Telephone encounter Note * Telephone Encounter - Mika Kaplan APRN.CNP - 01/12/2024 12:10 PM EST Orders placed. Please fax as requested Thank you Mika Kaplan APRN.CNP [facility]11-04-2024 Telephone encounter Note* Telephone Encounter - Aaliyah Gonzalez MA - 01/12/2024 10:16 AM EST Patient needs orders for Pneumatic compression, stockings, and wraps. Orders pended. Please file if agreeable. Once ordered, will need to fax orders to [facility] at [phone], ATTN Shobha/Rafia Gonzalez MA [facility]11-04-2024 NoteHNO ID: [id number] Author: MARILEE THAKUR MD Service: ? Author [...] (CERTAVITE-ANTIOXIDANT) fluticasone (FLONASE) 50 mcg/actuation nasal spray Udbdv-2-WBU-EPA-Fish Oil 1,000 mg (120 mg-180 mg) cap [...] content not included)...[facility]11-04-2024 History of Present illness Narrative* Marilee Thakur [...] (CERTAVITE-ANTIOXIDANT) fluticasone (FLONASE) 50 mcg/actuation nasal spray Ovnsw-0-RTN-EPA-Fish Oil 1,000 mg (120 mg-180 mg) cap [...] I27.20 She is going to see the dental floss packer 5. Right ventricular dysfunction - ICD9: 429.9, ICD10: I51.9 Marilee Thakur MD documented in this encounterMercy [facility]10-31-2024 Telephone encounter Note * Telephone Encounter - Rah Turner RN - 01/08/2024 9:22 AM EDT Blanca ORTEGA returned call and given verbal written by provider below. Blanca verbalized understanding. Still need Rx's sent to [facility]. [facility]10-31-2024 Miscellaneous Notes* Telephone Encounter - Rah Turner RN - 01/08/2024 9:22 AM EDT Blanca ORTEGA returned call and given verbal written by provider below. Blanca verbalized understanding. Still need Rx's sent to [facility]. * Telephone Encounter - Rah Turner RN - 01/08/2024 9:13 AM EDT Phoned Shobha and given provider's message below. Shobha agreeable. Shobha will have SCRIPT WRITER call in for verbal.Will leave encounter open until SCRIPT WRITER calls back. Reports the Rx's need to be sent to [facility]. Pended for [facility]. Patient has appt with dental floss packer- Dr. Goodman at [facility] on 01-20-24 @ 8:30 am, and with [...] her next appointment? Thank you Mika Kaplan APRN.BULB INSPECTOR * Telephone Encounter - Rah Turner RN - 01/08/2024 8:22 AM EDT Shobha- [place]- phoned stating she needs a reply today, hopefully within the hour, b/c she has an LPNthere who can take a verbal. . She [...] other encounter closed: Note Shobha caregiver from [facility] calling patient weight today at 850 am [...] Please advise and phone Shobha with reply: [phone]. Shobha will still need order faxed to [phone] since she cannot take verbal. * Telephone Encounter - Teresa Ferrera RN - 01/07/2024 11:16 AM EDT Called and left a voicemail for Shobha -skilled nursing, caregiver to call back and ask for [...] Shobha is needing written directions faxed to [phone] as Shobha is not licensed and can not take verbal order. * Telephone Encounter - Marilee Thakur MD - 01/06/2024 5:02 PM EDT Would ask her to take daily lasix for 3 days She should have as a reserve. RegardsMarilee MD * Telephone Encounter - Candelaria Ball LPN - 01/06/2024 10:55 AM EDT Shobha from [facility] Caregiver calling with patient weight was told if went up 3 pounds to report toPCP. Patient weight today at 745 am was 269 pounds and yesterday weight was 266 pounds. Patient hashospital follow up scheduled for 01/12/2024 with PCP. documented in this encounterMer[facility]10-31-2024 Telephone encounter Note * Telephone Encounter - Rah Turner RN - 01/08/2024 9:13 AM EDT Phoned Shobha and given provider's message below. Shobha agreeable. Shobha will have SCRIPT WRITER call in for verbal.Will leave encounter open until SCRIPT WRITER calls back. Reports the Rx's need to be sent to [facility]. Pended for [facility]. Patient has appt with dental floss packer- Dr. Goodman at [facility] on 01-20-24 @ 8:30 am, and with pcp on 01-12-24 @ 9 am. [facility]10-31-2024 Telephone encounter Note* Telephone Encounter - [...] next appointment? Thank you Mika Kaplan APRN.OBED [facility]10-31-2024 Telephone encounter Note* Telephone Encounter - Rah Turner RN - 01/08/2024 8:22 AM EDT Shobha- [place]- phoned stating she needs a reply today, hopefully within the hour, b/c she has an LPNthere who can take a verbal. # [phone]. She needs a verbal to continue lasix 40 mg for 3 more days. States patient will be in crisis if they do not get this order. More information in below messages. [facility]10-30-2024 Telephone encounter Note* Telephone Encounter - Rah Turner RN - 01/07/2024 1:19 PM EDT See duplicate encounter. [facility]10-30-2024 Miscellaneous Notes* Telephone Encounter - Rah Turner RN - 01/07/2024 1:19 PM EDT See duplicate encounter. * Telephone Encounter - Candelaria Ball LPN - 01/07/2024 10:26 AM EDT Shobha caregiver from [facility] calling patient weight today at 850 am was 276 pounds. She is on verystrict diet and liquid amount that she can drink daily. Patient is currently taking Lasix 40 mg daily. Please advise documented in this encounterMercy [facility]10-30-2024 Telephone encounter Note * Telephone Encounter - Rah Turner RN - 01/07/2024 1:08 PM EDT Shobha returned call. Shobha had called today at 10:29 am, and that message copied and pasted below, and the other encounter closed: Note Shobha caregiver from [facility] calling patient weight today at 850 am [...] Please advise and phone Shobha with reply: [phone]. Shobha will still need order faxed to [phone] since she cannot take verbal. [facility]10-30-2024 Telephone encounter Note* Telephone Encounter - Teresa Ferrera RN - 01/07/2024 11:16 AM EDT Called and left a voicemail for Shobha -skilled nursing, caregiver to call back and ask for a nurse to receive the providers message. Teresa Ferrera RN T [facility]10-30-2024 Telephone encounter Note* Telephone Encounter - Marilee Thakur MD - 01/07/2024 10:43 AM EDT Can you update me how much lasix she lost with the lasix, since discharge? Regards, Marilee Thakur MD [facility]10-30-2024 Telephone encounter Note* Telephone Encounter - Candelaria Ball LPN - 01/07/2024 10:26 AM EDT Shobha caregiver from [facility] calling patient weight today at 850 am was 276 pounds. She is on verystrict diet and liquid amount that she can drink daily. Patient is currently taking Lasix 40 mg daily. Please advise [facility]10-30-2024 Telephone encounter Note* Telephone Encounter - María Avila MA - 01/07/2024 8:18 AM EDT Spoke with Shobha, when patient was discharged from hospital, she was instructed to take 40 mg lasix for 5 days. Today is day #5. Do you want patient to take additional 3 days? Shobha is needing written directions faxed to [phone] as Shobha is not licensed and can not take verbal order. [facility]10-29-2024 Telephone encounter Note* Telephone Encounter - Marilee Thakur MD - 01/06/2024 5:02 PM EDT Would ask her to take daily lasix for 3 days She should have as a reserve. Regards, Marilee Thakur MD [facility]10-29-2024 Telephone encounter Note* Telephone Encounter - Candelaria Ball LPN - 01/06/2024 10:55 AM EDT Shobha from [facility] Caregiver calling with patient weight was told if went up 3 pounds to report toPCP. Patient weight today at 745 am was 269 pounds and yesterday weight was 266 pounds. Patient hashospital follow up scheduled for 01/12/2024 with PCP. [facility]10-29-2024 NoteHNO ID: [id number] Author: MARTELL GARLAND, RODRÍGUEZ Service: ? Author Type: Registered Nurse Type: Progress Notes Filed: 01/06/2024 10:00 Note Text: Transition Care Management (TCM) Initial Outreach PCP Update / Actionable Items Eligible for tcm through 01/16/24 Future Appts 02/19 Intm Wstr 03/22/24 Int Wstr HRTIC TCM Home Visit Referral Source of Stratification: [facility] Hospital Admission Status: Discharged Readmission Risk Score: n/a Patient's zip code: [address] Is zip code within program service area: No Patient meets program referral criteria: No Patient does not qualify for High Risk TCM Home Visit program due to: Patient's zip code is not located within program service area Disposition: Patient does not qualify for HRTIC, will provide TCM outreach follow-up for 30-days Patient Source: [id number]-[id number] (OON) Discharge Outreach Summary: Spoke with Shobha/Wire Preparation Machine Tender at [facility], states is feeling way better, looks 1000 [...] , no issues, stable Patient discharged from [facility] Discharge date: 01/02/24 Admitted for: HF,Dyspnea, orthopnea, weight gain, chest pain, lower swelling Readmission Risk: n/a Value-Based Contract: ACO Contact: Contact made with patient: Yes Hi, my name is Martell Garland RN and I am calling from the [facility] on behalf of your Primary Care [...] like to speak with a social work hat steamer to help give you support for any [...] I will send your request to a camera tuning engineer who will contact and assist you with [...] Martell Garland RN January 06, 2024 9:54 [facility]10-29-2024 History of Present illness Narrative* Martell Garland RN - 01/06/2024 9:43 AM EDT Transition Care Management (TCM) Initial Outreach PCP Update / Actionable Items Eligible for tcm through 01/16/24 Future Appts 02/19 Intm Wstr 03/22/24 [facility] HRTIC TCM Home Visit Referral Source of Stratification: [facility] Hospital Admission Status: Discharged Readmission Risk Score: n/a Patient's zip code: [address] Is zip code within program service area: No Patient meets program referral criteria: No Patient does not qualify for High Risk TCM Home Visit program due to: Patient's zip code is not located within program service area Disposition: Patient does not qualify for HRTIC, will provide TCM outreach follow-up for 30-days Patient Source: Gwc-nn-Ylzjhxk (OON) Discharge Outreach Summary: Spoke with Shobha/Wire Preparation Machine Tender at [facility], statesis feeling way better, looks 1000 x [...] , no issues, stable Patient discharged from [facility] Discharge date: 01/02/24 Admitted for: HF,Dyspnea, orthopnea, weight gain, chest pain, lower swelling Readmission Risk: n/a Value-Based Contract: ACO Contact: Contact made with patient: Yes Hi, my name is Martell Garland RN and I am calling from the [facility] on behalf of your Primary Care [...] like to speak with a social work hat steamer to help give you support for any [...] I will send your request to a camera tuning engineer who will contact and assist you with [...] 06, 2024 9:54 AM documented in this encounterMercy Health [facility] Hospital10-29-2024 NotePatient Outreach (AMBCMG) SIA ABDUL ([id number]) 1980 F Date Time Provider Department 01/06/24 MARTELL GARLAND During your visit today, we recorded the following information about you: Martell Garland, RN 01/06/2024 10:00 AM Signed Transition Care Management (TCM) Initial Outreach PCP Update / Actionable Items Eligible for tcm through 01/16/24 Future Appts 02/19 Intm Wstr 03/22/24 [facility] HRTIC TCM Home Visit Referral Source of Stratification: [facility] Hospital Admission Status: Discharged Readmission Risk Score: n/a Patient's zip code: [address] Is zip code within program service area: No Patient meets program referral criteria: No Patient does not qualify for High Risk TCM Home Visit program due to: Patient's zip code is not located within program service area Disposition: Patient does not qualify for HRTIC, will provide TCM outreach follow-up for 30-days Patient Source: Ahy-kr-Igetjne (OON) Discharge Outreach Summary: Spoke with Shobha/Wire Preparation Machine Tender at [facility], states is feeling way better, looks 1000 [...] , no issues, stable Patient discharged from [facility] Discharge date: 01/02/24 Admitted for: HF,Dyspnea, orthopnea, weight gain, chest pain, lower swelling Readmission Risk: n/a Value-Based Contract: ACO Contact: Contact made with patient: Yes Hi, my name is Martell Garland RN and I am calling from the [facility] on behalf of your Primary Care [...] like to speak with a social work hat steamer to help give you support for any [...] I will send your request to a camera tuning engineer who will contact and assist you with [...] 11/18/2023 Reviewed by: Aaliyah Gonzalez MA - Yoselin Britton (more content not included)...[facility]10-25-2024 [facility] 12-26-2023 Telephone encounter Note* Telephone Encounter - María Avila MA - 12/26/2023 12:36 PM EDT Left message for return call. [facility]10-18-2024 Miscellaneous Notes* Telephone Encounter - María Avila MA - 12/26/2023 12:36 PM EDT Left message for return call. * Telephone Encounter - Mika Kaplan APRN.CNP - 12/26/2023 11:41 AM EDT As previous message - she needs seen earlier then scheduled. Thank you Mika Kaplan APRN.CNP * Telephone Encounter - Annie Brand RN - 12/25/2023 2:30 PM EDT Enrique, nurse @ [facility] calling to let provider know patient weighed 291.1 # this morning. She says patient does not have increase in leg edema nor shortness of breath. Last weight reported was 283# on 12/17/23. Enrique states patient is currently taking Lasix 40 mg daily and Potassium 20 mEq daily. Patient was in [facility] ER on 12/21/23 with SOB. Patient was in [facility] ER again on 12/23/23 for viral gastroenteritis. Patient scheduled for ER F/U with PCP on 01/02/24. Annie Brand RN documented in this encounterMercy Health [facility]10-18-2024 Telephone encounter Note * Telephone Encounter - Mika Kaplan APRN.CNP - 12/26/2023 11:41 AM EDT As previous message - she needs seen earlier then scheduled. Thank you Mika Kaplan APRN.CNP [facility]10-17-2024 Telephone encounter Note* Telephone Encounter - Annie Brand RN - 12/25/2023 2:30 PM EDT Enrique, nurse @ [facility] calling to let provider know patient weighed 291.1 # this morning. She says patient does not have increase in leg edema nor shortness of breath. Last weight reported was 283# on 12/17/23. Enrique states patient is currently taking Lasix 40 mg daily and Potassium 20 mEq daily. Patient was in [facility] ER on 12/21/23 with SOB. Patient was in [facility] ER again on 12/23/23 for viral gastroenteritis. Patient scheduled for ER F/U with PCP on 01/02/24. Annie Brand RN [facility]10-14-2024 Telephone encounter Note* Telephone Encounter - María Avila MA - 12/22/2023 1:49 PM EDT Pharmacist notified. [facility]10-14-2024 Miscellaneous Notes* Telephone Encounter - María Avila MA - 12/22/2023 1:49 PM EDT Pharmacist notified. * Telephone Encounter - Mika Kaplan APRN.CNP - 12/22/2023 1:41 PM EDT She is supposed to be taking both short term. Is there a way to get her in earlier then in 10 days? Thank you Mika Kaplan APRN.CNP * Telephone Encounter - Annie Brand RN - 12/22/2023 1:26 PM EDT Pharmacist @ [facility] calling to clarify orders for [...] advise. Annie Brand RN documented in this encounterMercy Health [facility]10-14-2024 Telephone encounter Note * Telephone Encounter - Mika Kaplan APRN.CNP - 12/22/2023 1:41 PM EDT She is supposed to be taking both short term. Is there a way to get her in earlier then in 10 days? Thank you Mika Kaplan APRN.BULB INSPECTOR [facility]10-14-2024 Telephone encounter Note* Telephone Encounter - Annie Brand RN - 12/22/2023 1:26 PM EDT Pharmacist @ [facility] calling to clarify orders for [...] Please review and advise. Annie Brand RN [facility]10-14-2024 Telephone encounter Note* Telephone Encounter - Erendira Stewart LPN - 12/22/2023 1:22 PM EDT Call returned by Shobha message given as provided. She voices understanding. [facility]10-14-2024 Miscellaneous Notes* Telephone Encounter - Erendira Stewart LPN - 12/22/2023 1:22 PM EDT Call returned by Shobha message given as provided. She voices understanding. * Telephone Encounter - Teresa Ferrera RN - 12/22/2023 11:33 AM EDT Called and left a voicemail for the [facility] to call back and ask for a nurse to receivethe providers message. Teresa Ferrera RN * Telephone Encounter - Mika Kaplan APRN.CNP - 12/22/2023 10:57 AM EDT Prescription Resent. Thank you Mika Kaplan APRN.OBED * Telephone Encounter - Rah Turner RN - 12/22/2023 9:38 AM EDT [facility]- phoned to report patient was seen in [place] ER on Friday12-21-23, with SOB. ER gave patient IV lasix and sent patient home. Reports patient is having stress in skilled nursing with another housemate, which is causing patient anxiety, and this was part of the problem, but patient has also been having problems with edema. This nurse phoned Shobha- [facility] to schedule ER f/u appt, and noted in 12-17-23 encounter, Stripping And Booking Machine Operator had ordered potassium 20 mg daily, and lasix 40 mg daily, until patient is seen. Asked Shobha how patient is doing on this dose. Shobha reports patient never received the medication, b/c it was sent to the wrong pharmacy, should have been sent to [facility]. Shobha did call pcp to report this (see message below), but never received the medication. Reports even if the medication is sent to [facility] today- they still will not receive it until Fri. Pended medications for [facility]. Please send geovanny. Shobha reports patient is doing fine today- and they are working on the problem with the housemate. Scheduled patient hosp f/u appt for 01-01-24. * Telephone Encounter - Erendira Stewart LPN - 12/18/2023 2:09 PM EDT Shobha from [facility] states there were medications sent for pt yesterday documented in [facility] encounterMer[facility] Telephone encounter Note * Telephone Encounter - Teresa Ferrera RN - 12/22/2023 11:33 AM EDT Called and left a voicemail for the [facility] to call back and ask for a nurse to receivethe providers message. Teresa Ferrera RN [facility]10-14-2024 Telephone encounter Note* Telephone Encounter - Mika Kaplan APRN.CNP - 12/22/2023 10:57 AM EDT Prescription Resent. Thank you Mika Kaplan APRN.BULB INSPECTOR [facility]10-14-2024 Telephone encounter Note* Telephone Encounter - Rah Turner RN - 12/22/2023 9:38 AM EDT [facility]- phoned to report patient was seen in [facility] on Friday12-21-23, with SOB. ER gave patient IV lasix and sent patient home. Reports patient is having stress in skilled nursing with another housemate, which is causing patient anxiety, and this was part of the problem, but patient has also been having problems with edema. This nurse phoned Shobha- [facility] to schedule ER f/u appt, and noted in 12-17-23 encounter, Stripping And Booking Machine Operator had ordered potassium 20 mg daily, and lasix 40 mg daily, until patient is seen. Asked Shobha how patient is doing on this dose. Shobha reports patient never received the medication, b/c it was sent to the wrong pharmacy, should have been sent to [place]. Shobha did call pcp to report this (see message below), but never received the medication. Reports even if the medication is sent to [facility] today- they still will not receive it until Fri. Pended medications for [facility]. Please send geovanny. Shobha reports patient is doing fine today- and they are working on the problem with the housemate. Scheduled patient hosp f/u appt for 01-01-24. [facility]10[facility]13[facility] Hospital Discharge instructions Patient Education 12/21/2023 [...] or as directed by your healthcare provider [phone] [employer]. [address] [place] [address]. All rights reserved. This information is not intended as a substitute for professional medical care. Always follow yourhealthcare professional's instructions. Follow Up Care 12/21/2023 14:01:46 With:please follow up with your dental floss packer Address:Unknown When:2-4 days With:Go to emergency room if symptoms worsen Address:Unknown When:2-4 days With:MARILEE THAKUR MD Address: [address] [place] [address]- When:2-4 days [facility] 10-13-2024 Emergency department Discharge summary Discharge Instructions Thank you for allowing [place] to assist you with your healthcare needs. [...] other acute concerns. Otherwise follow-up with your dental floss packer as scheduled. No qualifying data available. Post Acute Orders No qualifying data available. You Need to Schedule the Following Appointments Follow Up with please follow up with your dental floss packer When:Within 2-4 days Follow Up with Go to emergency room if symptoms worsen When:Within 2-4 days Follow Up with MARILEE THAKUR MD When:Within 2-4 days Where:[address] [place] [address]- Allergies Bee Stings Dilantin misc non-codified allergy [...] or as directed by your healthcare provider [phone] [employer] [address] [place] [address]. All rights reserved. This information is not intended as a substitute for professional medical care. Always follow yourhealthcare professional's instructions. Additional Information VACCINATE! IT SAVES LIVES! Members of the community who have not yet received the COVID-19 vaccine and would like to receive it can visit one of [facility] vaccine clinics. There are many vaccine clinic locations within the [facility]. For locations and available times, please visit www.[email or web address].[place].gov/. It is important to note that some COVID mobile vaccine clinics are held outdoors and may be canceled in rainy or stormy conditions. To learn more about pediatric vaccinations (ages 5-11), we invite you to visit the [facility] webpage. [email or web address] learn more about the COVID-19 vaccine, we invite you to visit the CDC website for a list of frequently asked questions. https://www.cdc.gov/coronavirus/2019-ncov/vaccines/faq.html [facility] Patient Portal Access Instructions: Stay connected with your healthcare team and access your personal medical information anytime with the [facility] Patient Portal. If you would like a full copy of your medical records please contact the [facility] Medical Records Department Friday through Friday between 8a.m. and 4:30p.m. Please follow the directions below to access the portal: 1.Access the email account you provided upon registration to the [facility].2.Look for an invitation email from [facility].3.Open the email and access the invitation link: Accept Invitation to [facility]4.Fill in the required perez to create your account. Sign into [email or web address] with your username and password that you [...] you will allow to register on the [facility] Patient Portal for access to your information. You can also access the [facility] Patient Portal on the Revver. Simply click on Health Records under [employer] and then click on the Vurb logo. HOW TO SAFELY DISPOSE OF PRESCRIPTION [...] Call your local pharmacy or go to [email or web address] to find one close to you.3.Make use of household items: Use cat litter or old coffee grounds to dispose medications if other options arenot available. Mix your drugs with these household products, seal them in an airtight container andthrow it into the garbage. Call [facility]: [phone] to be sure your drugs can be [...] aware that I should contact my doctor. Patient/Financial Services Education Consultant Signature: Date/Time: Relationship to Patient: Witness Name/Signature: Date/Time: [facility]10-13-2024 Note ORIGINAL EXAMINATION: ONE XRAY [...] Date: 12/21/2023 3:28:25 PM Ordering Provider: [facility] Note Sinus rhythm Borderline left axis deviation Abnormal R-wave progression, late transition Borderline T abnormalities, anterior leads Baseline wander in lead(s) V4 Electronic Signature: TABATHA PAEG DO 12/21/2023 14:45:23[facility] 10-10-2024 Telephone encounter Note* Telephone Encounter - Erendira Stewart LPN - 12/18/2023 2:09 PM EDT Shobha from [facility] calling states there were medications sent for pt yesterday [facility]10-09[facility] Telephone encounter Note* Telephone Encounter - Mika Kaplan APRN.BULB INSPECTOR - 12/17/2023 4:43 PM EDT New scripts sent Mika Kaplan APRN.CNP [facility]10-09-2024 Miscellaneous Notes* Telephone Encounter - Mika Kaplan APRN.CNP - 12/17/2023 4:43 PM EDT New scripts sent Mika Kaplan APRN.CNP * Telephone Encounter - Lillie Marshall RN - 12/17/2023 2:26 PM EDT Clarence called and notified of below , Clarence voices understanding. Clarence is going to pass this along to skilled nursing. Clarence asking if new scripts can be sent to [facility]? Please review and advise, Lillie [...] RN - 12/17/2023 9:04 AM EDT Clarence- [facility]- phoned with patient update: Reports pcp [...] Please advise and phone Clarence with reply: [phone] documented in this encounterMercy Health [facility]10-09-2024 Telephone encounter Note * Telephone Encounter - Lillie Marshall RN - 12/17/2023 2:26 PM EDT Clarence called and notified of below , Clarence voices understanding. Clarence is going to pass this along to skilled nursing. Clarence asking if new scripts can be sent to [facility]? Please review and advise, Lillie Marshall RN [facility]10-09-2024 Telephone encounter Note* Telephone Encounter - Mika Kaplan APRN.CNP - 12/17/2023 1:22 PM EDT Patient needs to be seen to evaluate why this is continuing to occur. Can increase lasix to 40mg and the potassium to 20mg both daily until seen. Thank you Mika Kaplan APRN.BULB INSPECTOR [facility]10-09-2024 Telephone encounter Note* Telephone Encounter - Rah Turner RN - 12/17/2023 9:04 AM EDT Clarence- [facility]- phoned with patient update: Reports pcp [...] Please advise and phone Clarence with reply: [phone] [facility]10-04-2024 Telephone encounter Note* Telephone Encounter - Lillie Marshall RN - 12/12/2023 1:28 PM EDT Clarence from [facility] and states that presciption needs to be sent to [facility] and is asking for prescription to be sent to them as well at [phone]. Lillie Marshall RN [facility]10-04-2024 Miscellaneous Notes* Telephone Encounter - Lillie Marshall RN - 12/12/2023 1:28 PM EDT Clarence from [facility] calls and states that presciption needs to be sent to [facility] and is asking for prescription to be sent to them as well at [phone]. Lillie Marshall RN documented in this encounterMercy Health [facility]10-04-2024 Telephone encounter Note * Telephone Encounter - Ashley Martinez LPN - 12/12/2023 1:05 PM EDT Clarence notified and voiced his understanding. [facility]10-04-2024 Miscellaneous Notes* Telephone Encounter - Ashley [...] - 12/12/2023 8:06 AM EDT Clarence from [facility] calling patient weight this morning was 286 pounds. She has increased edema aaron legs, slightly unsteady gait, vitals good, slight shortness of breath with exertion.He said her Furosemide 20 mg one tablet every other day, wearing her compression stockings, using her lymphedema cuffs. Please advise documented in this encounterMercy Health [facility] Hospital10-04-2024 Telephone encounter Note * Telephone Encounter - Mika Kaplan APRN.CNP - 12/12/2023 12:36 PM EDT Hurt current lasix and potassium dose and give Lasix 40mg daily for the next 3 days and potassium 20meq for the next 3 days as well. Then restart current dose. Follow up if no improvement. Thank you Mkia Kaplan APRN.OBED [facility]10-04-2024 Telephone encounter Note* Telephone Encounter - Candelaria Ball LPN - 12/12/2023 8:06 AM EDT Clarence from [facility] calling patient weight this morning was 286 pounds. She has increased edema aaron legs, slightly unsteady gait, vitals good, slight shortness of breath with exertion.He said her Furosemide 20 mg one tablet every other day, wearing her compression stockings, using her lymphedema cuffs. Please advise [facility]09-30-2024 Telephone encounter Note* Telephone Encounter - Lacie Reyes LPN - 12/08/2023 8:08 AM EDT Called and updated Clarence, voiced understanding. Lacie Reyes LPN December 08, 2023 8:08 AM [facility]09-30-2024 Miscellaneous Notes* Telephone Encounter - Lacie Reyes LPN - 12/08/2023 8:08 AM EDT Called and updated Clarence, voiced understanding. Lacie JORDAN Reyes December 08, 2023 8:08 AM * Telephone Encounter - Marilee Thakur MD - 12/05/2023 7:28 PM EDT Noted, verbal ok for the same Regards, Marilee Thakur MD * Telephone Encounter - Candelaria Ball LPN - 12/05/2023 9:19 AM EDT Clarence from [facility] calling time for recert long term services. Patient skilled nursing was purchased by another [facility], nurses will be there more. Patient will be weighed once weekly and log kept to bring to appts. Patient is taking her second antibiotic for cellulitis. Please advise documented in this encounterMercy Health [facility] Hospital09-27-2024 Telephone encounter Note * Telephone Encounter - Marilee Thakur MD - 12/05/2023 7:28 PM EDT Noted, verbal ok for the same Regards, Marilee Thakur MD [facility]09-27-2024 Telephone encounter Note* Telephone Encounter - Candelaria Ball LPN - 12/05/2023 9:19 AM EDT Clarence from [facility] calling time for recert long term services. Patient skilled nursing was purchased by another [facility], nurses will be there more. Patient will be weighed once weekly and log kept to bring to appts. Patient is taking her second antibiotic for cellulitis. Please advise [facility]09-16-2024 Telephone encounter Note* Telephone Encounter - [...] LEGS AT BEDTIME Pepper Walsh RN [facility]09-16-2024 Miscellaneous Notes* Telephone Encounter - Pepper [...] BEDTIME Pepper Walsh RN documented in this encounterMercy Health Willard Hospital09-10-2024 NoteHNO ID: [id number] Author: MARILEE THAKUR MD Service: ? Author [...] (CERTAVITE-ANTIOXIDANT) fluticasone (FLONASE) 50 mcg/actuation nasal spray Jgxne-4-ABO-EPA-Fish Oil 1,000 mg (120 mg-180 mg) cap [...] content not included)...[facility] 11-18-2023 History of Present illness Narrative* Marilee [...] unspecified Comment: Allergic rhinitis No date: Amenorrhea 2009: Cellulitis Comment: leg-resolved No date: Chronic obstructive [...] (CERTAVITE-ANTIOXIDANT) fluticasone (FLONASE) 50 mcg/actuation nasal spray Mwngw-0-IDX-EPA-Fish Oil 1,000 mg (120 mg-180 mg) cap [...] RELEASE(PART/CRYST) Marilee Thakur MD documented in this encounterMercy Health [facility] Hospital09-05-2024 Telephone encounter Note * Telephone Encounter - María Avila MA - 11/13/2023 2:44 PM EDT Shaunna notified. [facility]09-05-2024 Miscellaneous Notes* Telephone Encounter - María Avila MA - 11/13/2023 2:44 PM EDT Shaunna notified. * Telephone Encounter - María Aivla MA - 11/13/2023 2:42 PM EDT ----- Message from Mika Kaplan APRN.OBED sent at 11/13/2023 2:13 PM EDT ----- Please let [facility] know preliminary result of US is negative for blood clot. Thank you Mika Kaplan APRN.BULB INSPECTOR documented in this encounterMercy Health [facility]09-05-2024 Telephone encounter Note * Telephone Encounter - María Avila MA - 11/13/2023 2:42 PM EDT ----- Message from Mika Kaplan APRN.OBED sent at 11/13/2023 2:13 PM EDT ----- Please let [facility] know preliminary result of US is negative for blood clot. Thank you Mika Kaplan APRN.BULB INSPECTOR [facility]09-05-2024 Telephone encounter Note* Telephone Encounter - Mika Kaplan APRN.CNP - 11/13/2023 12:24 PM EDT Discussed in appointment today Mika Kaplan APRN.CNP [facility]09-05-2024 Miscellaneous Notes* Telephone Encounter - Mika Kaplan APRN.CNP - 11/13/2023 12:24 PM EDT Discussed in appointment today Mika Kaplan APRN.BULB INSPECTOR * Telephone Encounter - Pamela Singh LPN - 11/12/2023 10:10 AM EDT Clarence called back with more information. He weighed pt today and she weighed 265. She normally weighs 250 to 255. Per Clarence pt may be going to Urgent Care somewhere, he wasn't sure. Pamela Singh LPN * Telephone Encounter - Candelaria Ball LPN - 11/12/2023 9:27 AM EDT Clarence from [facility] calling 2 weeks ago ER put [...] be seen by PCP. documented in this encounterMercy Health [facility]09-05-2024 Instructions* Patient Instructions* Mika Kaplan APRN.OBED - 11/13/2023 11:25 AM EDT Take Lasix daily with daily potassium supplement for the next 4 days. Hold multivitamin and calcium while on doxycycline. documented in this encounterMercy Health [facility] Hospital09-05-2024 NoteHNO ID: [id number] Author: MIKA KAPLAN APRN.OBED Service: ? Author [...] then usual and painful. Went immediately to [facility] on 10/29. No US completed to [...] INSTILL 2 SPRAYS IN EACH NOSTRIL DAILY Ezpem-8-HDG-EPA-Fish Oil 1,000 mg (120 mg-180 mg) cap [...] EXAM Temp 36.8 ?C (98.2 ?F) (Temporal) [facility] 05/13/2007 General Appearance: well appearing, in no acute distress, alert Skin: LLE with typical lymph edema but very tender with redness from upper gonzales down to ankle. No ope (more content not included)...[facility] 11-13-2023 History of Present illness Narrative* Mika Kaplan APRN.BULB INSPECTOR - 11/13/2023 11:10 AM EDT CC: Patient presents with: Recheck: ER follow up, cellulitis completed AIB HPI Sia Abdul is a 43 year old female who presents today for cellulitis Unsure if there was injury or what caused infection but noticed while playing basketball that leg was red, hot, more swollen then usual and painful. Went immediately to [place] [facility] on 10/29. No US completed to [...] INSTILL 2 SPRAYS IN EACH NOSTRIL DAILY Eedvy-6-PUW-EPA-Fish Oil 1,000 mg (120 mg-180 mg) cap [...] DATA REVIEWED: Outside chart from [facility] reviewed. ASSESSMENT/PLAN: 1. Cellulitis of left [...] plan. Mika Kaplan APRN.OBED documented in this encounterMercy Health [facility] Hospital09-04-2024 Telephone encounter Note * Telephone Encounter - Pamela Singh LPN - 11/12/2023 10:10 AM EDT Clarence called back with more information. He weighed pt today and she weighed 265. She normally weighs 250 to 255. Per Clarence pt may be going to Urgent Care somewhere, he wasn't sure. Pamela Singh LPN [facility]09-04-2024 Telephone encounter Note* Telephone Encounter - Candelaria Ball LPN - 11/12/2023 9:27 AM EDT Clarence from [facility] calling 2 weeks ago ER put [...] week to be seen by PCP. [facility]08-02-2024 Telephone encounter Note* Telephone Encounter - Candelaria Ball LPN - 10/10/2023 8:37 AM EDT Phoned Clarence and went over notes below from Dr Thakur with understanding. [facility]08-02-2024 Miscellaneous Notes* Telephone Encounter - Candelaria Ball LPN - 10/10/2023 8:37 AM EDT Phoned Clarence and went over notes below from Dr Thakur with understanding. * Telephone Encounter - Marilee Thakur MD - 10/09/2023 5:58 PM EDT Agree Regards, Marilee Thakur MD * Telephone Encounter - Candelaria Ball LPN - 10/09/2023 1:32 PM EDT Clarence from [facility] calling to recert orders for detention for the patient, [facility] would agree. Please advise documented in this encounterMercy Health [facility]08-01-2024 Telephone encounter Note * Telephone Encounter - Marilee Thakur MD - 10/09/2023 5:58 PM EDT Agree Regards, Marilee Thakur MD [facility]08-01-2024 Telephone encounter Note* Telephone Encounter - Marilee Thakur MD - 10/09/2023 5:58 PM EDT Noted and agree RegardsMarilee MD [facility]08-01-2024 Miscellaneous Notes* Telephone Encounter - Marilee Thakur MD - 10/09/2023 5:58 PM EDT Noted and agree RegardsMarilee MD * Telephone Encounter - Pepper Walsh RN - 10/09/2023 2:08 PM EDT Stephanie with [facility] calling to update PCP that patient has 3cm open area to her right gonzales. Will keep it open to air and does not feel dressing is necessary. Patient is unsure how she acquired it but does pick at skin. HH Nursing will continue to monitor area. No call back needed, if provider agreeable. Pepper Walsh RN . documented in this encounterMercy Health [facility] Hospital08-01-2024 Telephone encounter Note * Telephone Encounter - Pepper Walsh RN - 10/09/2023 2:08 PM EDT Stephanie with [facility] calling to update PCP that patient has 3cm open area to her right gonzales. Will keep it open to air and does not feel dressing is necessary. Patient is unsure how she acquired it but does pick at skin. HH Nursing will continue to monitor area. No call back needed, if provider agreeable. Pepper Walsh RN . [facility]08-01-2024 Telephone encounter Note* Telephone Encounter - Candelaria Ball LPN - 10/09/2023 1:32 PM EDT Clarence from [facility] calling to recert orders for detention for the patient, ifP would agree. Please advise [facility]07-12-2024 Telephone encounter Note* Telephone Encounter - [...] LPN September 19, 2023 12:56 PM [facility]07-12-2024 Miscellaneous Notes* Telephone Encounter - Pascale [...] 19, 2023 12:30 PM documented in this encounterMercy Health Willard Hospital07-12-2024 Telephone encounter Note * Telephone Encounter [...] Zuniga September 19, 2023 12:30 PM [facility]06-14-2024 Telephone encounter Note* Telephone Encounter - [...] INSTILL 2 SPRAYS IN EACH NOSTRIL DAILY Ajrrm-9-QXL-EPA-Fish Oil 1,000 mg (120 mg-180 mg) cap 31 capsule 10 Sig: Take 1 capsule by mouth once daily. Aaliyah Royal August 22, 2023 12:51 PM [facility] Work Phone: [phone]) 216-323506-14-2024 Miscellaneous Notes* Telephone Encounter - Aaliyah Zhang [...] INSTILL 2 SPRAYS IN EACH NOSTRIL DAILY Evrrr-1-WPG-EPA-Fish Oil 1,000 mg (120 mg-180 mg) cap 31 capsule 10 Sig: Take 1 capsule by mouth once daily. Aaliyah Royal August 22, 2023 12:51 PM documented in this encounterMercy Health [facility] Hospital06-03-2024 Telephone encounter Note * Telephone Encounter - Aaliyah Gonzalez MA - 08/11/2023 12:52 PM EDT Pharmacy request denied. Patient needs to contact office for refills. Aaliyah Gonzalez MA [facility]06-03-2024 Miscellaneous Notes* Telephone Encounter - Aaliyah Gonzalez MA - 08/11/2023 12:52 PM EDT Pharmacy request denied. Patient needs to contact office for refills. Aaliyah Gonzalez MA documented in this encounterMercy Health [facility]ard Hospital05-30-2024 Telephone encounter Note * Telephone Encounter - Darlene Alvarez OCCA - 08/07/2023 12:56 PM EDT Clarence informed of below. ANUPAMA Lira [facility]05-30-2024 Miscellaneous Notes* Telephone Encounter - Darlene Alvarez OCCA - 08/07/2023 12:56 PM EDT Clarence informed of below. ANUPAMA Lira * Telephone Encounter - Moni Norton APRN.CNS - 08/07/2023 12:45 PM EDT OK * Telephone Encounter - Lillie Marshall RN - 08/07/2023 10:43 AM EDT Clarence from [facility] calls to see if provider will continue to follow orders for long term? Lillie Marshall RN documented in this encounterMercy [facility]05-30-2024 Telephone encounter Note * Telephone Encounter - Moni Norton APRN.CNS - 08/07/2023 12:45 PM EDT OK [facility]05-30-2024 Telephone encounter Note* Telephone Encounter - Lillie Marshall RN - 08/07/2023 10:43 AM EDT Clarence from [facility] calls to see if provider will continue to follow orders for long term? Lillie Marshall RN [facility]05-29-2024 Telephone encounter Note* Telephone Encounter - [...] LPN August 06, 2023 4:16 PM [facility]05-29-2024 Miscellaneous Notes* Telephone Encounter - Pascale [...] Thank you. Monica Grady. documented in this encounterMercy Health [facility] Hospital05-29-2024 Telephone encounter Note * Telephone Encounter [...] care: Please advise. Thank you. Monica Grady. [facility]05-13-2024 Telephone encounter Note* Telephone Encounter - [...] advise. Thank you. Aaliyah Gonzalez MA. [facility]05-13-2024 Miscellaneous Notes* Telephone Encounter - Aaliyah [...] notify patient. Usha Zuniga documented in this encounterMercy Health Willard Hospital05-13-2024 Telephone encounter Note * Telephone Encounter [...] need to notify patient. Usha Zuniga [facility]04-30-2024 Telephone encounter Note* Telephone Encounter - [...] nystatin (NYAMYC) powder [Pharmacy Med Name: Nyamyc [id number] UNIT/GM Powder] 60 g 10 Sig: APPLY TOPICALLY TWICE DAILY TO AFFECTED AREA(S) ON ABDOMINAL FOLDS Date of last office visit in primary care: 03/19/2023 Date of next office visit in primary care: 03/22/2024 Please advise. Thank you. Pascale Henderson LPN. [facility]04-30-[facility]24 Miscellaneous Notes* Telephone Encounter - Pascale [...] nystatin (NYAMYC) powder [Pharmacy Med Name: Nyamyc [id number] UNIT/GM Powder] 60 g 10 Sig: APPLY TOPICALLY TWICE DAILY TO AFFECTED AREA(S) ON ABDOMINAL FOLDS Date of last office visit in primary care: 03/19/2023 Date of next office visit in primary care: 03/22/2024 Please advise. Thank you. Pascale Henderson LPN. documented in this encounterMercy [facility]04-30-2024 Telephone encounter Note * Telephone Encounter [...] advise. Thank you. Pascale Henderson LPN. [facility]04[facility] Miscellaneous Notes* Telephone Encounter - Pascale [...] you. Pascale Henderson LPN. documented in this encounterMercy Health Willard Hospital04-05-2024 Miscellaneous Notes* Telephone Encounter - Pascale [...] you. Pascale Henderson LPN. documented in this encounterMercy Health Willard Hospital03-25-2024 Miscellaneous Notes* Telephone Encounter - María Avila MA - 06/02/2023 3:30 PM EDT Left message for return call. * Telephone Encounter - María Avila MA - 05/29/2023 11:33 AM EDT Tried calling sugar house supervisor, call was dropped. * Telephone Encounter - Mika Kaplan APRN.CNP - 05/29/2023 11:09 AM EDT Dulera ordered in equivalent dosing to symbicort. Call skilled nursing to give below information and change in [...] 05/26/2023 1:27 PM EDT Sia Abdul (Griffith: [id number]) - [id number] Budesonide-Formoterol Fumarate 160-4.5MCG/ACT aerosol Status: PA Request Created: March 13, 2023 [id number] Sent: May 26, 2023 * Telephone Encounter - Eulalia Laureano RN - 05/26/2023 11:26 AM EDT Prior Authorization Documentation Prior authorization requested for the following medication: Medication: Symbicort Provider: Latesha Garibay Insurance Company Name: Medicare A/B and Medicaid secondary Insurance Company Phone number: Not listed Patient ID number: Medicare: [id number] Medicaid: [id number] [facility] number: [phone]. Caregiver calls to request. Reports pharmacy is also faxing request. Eulalia Laureano RN documented in this encounterMercy Health Willard Hospital03-22-2024 Miscellaneous Notes* Telephone Encounter - María Avila Ma - 05/30/2023 2:47 PM EDT Faxed to [facility] as requested. * Telephone Encounter - Ofelia Rodriguez - 05/30/2023 12:14 PM EDT Patient verified by name and . Her care provider, Shaunna Cuenca calling to request a mammogram screening order be faxed to [facility] to complete. She can be reached at [phone] with any questions. Please review and advise. documented in this encounterMercy Health Willard Hospital11-13-2023 Miscellaneous Notes* Telephone Encounter - Mackenzie Elmore LPN - 01/20/2023 2:39 PM EST Patient has been identified by name and date of : Yes Patient phones for refill(s): Requested Prescriptions Pending Prescriptions Disp Refills ruktjpq-jquhrvlaw-ubqbthl D3 (OYSTER SHELL CALCIUM-VITAMIN D) 500 mg-5 [...] Yes Requested Prescriptions Pending Prescriptions Disp Refills rimiaoz-lhxfvqrdf-ftbtbbt D3 (OYSTER SHELL CALCIUM-VITAMIN D) 500 mg-5 mcg (200 unit) per tablet 62tablet 5 Sig: Take 1 tablet by mouth two times a day with meals. RX INSTRUCTIONS: Patient aware RX will be sent to pharmacy. No need to notify patient. Aaliyah Royal documented in this encounterMercy Health Willard Hospital10-05-2023 Miscellaneous Notes* Telephone Encounter - Mackenzie [...] and advise. Mima Royal documented in this encounterMercy Health Willard Hospital09-28-2023 History of Present illness Narrative* Food/Nutrition related history: [facility] * Nutrition Assessment in [...] INTAKE: * Pt and caregiver (Anali - Land Sales Agent) present in out-patient PWS clinic for a scheduled f/u clinic visit. 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 [facility] sends packed meals home with her. * [...] to dietitian * - Send copies of [facility] Food Menus and pts actual % of [...] and reassess as needed or requested * Lroo-wa-Qprh Time and Units: Time: 30 minutes/Units: 2 * Mikayla Nava, MS, RD, LDN l Sr. Genetics Dietitian l Clinical Dietitian, Advance Practice l l [facility] * [facility] * Genetics Dietitian's Office: ; ; Email: [email or web address] * Genetics/Scheduling: ; ; Urgent Doctor On- Call: * [address] [place] [address] [address] * Clinical Street Commissioner Provider: Teresa Mohamud MD * . [address] Work Phone: 1(775) 658-343408-18-2023 Miscellaneous Notes* Telephone Encounter - Darlene Alvarez [...] calling back to check status. Routing to electronics utility worker due to medication issues. Pamela Singh LPN * Telephone Encounter - Mackenzie Elmore LPN - 10/08/2022 3:21 PM EDT Staff member eneida Martell, dose of Lasix 20mg & Potassium 10 mEq today. Patient is to get medication every other day, it is one day early. Patient went to [employer] today, should be home within next30 minutes, [facility] has not receive a call re: Patient today. Please review & advise. Mackenzie Elmore LPN documented in this encounterMercy Health Willard Hospital08-16-2023 History of Present illness Narrative* Mika Kaplan APRN.BULB INSPECTOR - 10/23/2022 2:53 PM EDT CC: Patient [...] INSTILL 2 SPRAYS IN EACH NOSTRIL DAILY Wawvs-6-ESJ-EPA-Fish Oil 1,000 mg (120 mg-180 mg) cap [...] TO AFFECTED AREA(S) ON LEGS AT BEDTIME vkgvndo-gusxxzjwi-pbxtakz D3 (OYSTER SHELL CALCIUM-VITAMIN D) 500 mg(1,250mg) [...] plan. Mika Kaplan APRN.CNP documented in this encounterMercy Health Willard Hospital08-16-2023 Miscellaneous Notes* Telephone Encounter - Candelaria [...] you. Candelaria Ball LPN documented in this encounterMercy Health Willard Hospital08-03-2023 Miscellaneous Notes* Telephone Encounter - Teresa Ferrera RN - 10/10/2022 12:33 PM EDT Clarence Calderon with [facility] in [place] called in to verify that Pt was still under providers care. documented in this encounterMercy Health Willard Hospital06-19-2023 Miscellaneous Notes* Telephone Encounter - Isela [...] notify patient. Usha Zuniga documented in this encounterMercy Health Willard Hospital05-31-2023 Miscellaneous Notes* Telephone Encounter - Pascale Lorenzo LPN - 08/07/2022 8:17 AM EDT Patient has been identified by name and date of : No Patient phones for refill(s): Requested Prescriptions Pending Prescriptions Disp Refills fluticasone (FLONASE) 50 mcg/actuation nasal spray [Pharmacy Med Name: Fluticasone Propionate 50 MCG/ACT Suspension] 16 g 10 Sig: INSTILL 2 SPRAYS IN EACH NOSTRIL DAILY Qyrsb-1-GYC-EPA-Fish Oil 1,000 mg (120 mg-180 mg) cap [Pharmacy Med Name: Powderly- 3 1000 MG Capsule] 31 capsule 10 Sig: TAKE ONE CAPSULE BY MOUTH DAILY budesonide-formoterol (SYMBICORT) 160-4.5 mcg/actuation inhaler [Pharmacy Med Name: Budesonide-Formoterol Fumarate 160-4.5 MCG/ACT Aerosol] 10.2 g 10 Sig: INHALE 2 PUFFS BY MOUTH TWICE DAILY ( INSTRUCTED) *DEACON WELL Date of last office visit in primary care: 07/01/22 Last 2 Encounter Wt Readings: Date: Wt: 07/01/2022 117 kg (258 lb) 06/27/2022 113.6 kg (250 lb 6.4 oz) Previous labs/tests for medication: Not applicable Please advise. Thank you. Pascale Lorenzo LPN documented in this encounterMercy Health Willard Hospital05-11-2023 Miscellaneous Notes* Telephone Encounter - Pepper [...] and advise. Pepper Royal documented in this encounterMercy Health Willard Hospital03-30-2023 Miscellaneous Notes* Telephone Encounter - Alexia Prater LPN - 06/06/2022 3:47 PM EDT Medication or Treatment Administration Consent form signed by Dr. Thakur. Contacated Anali the housemanager notified form is ready for pickup. Form taken to Medical records. documented in this encounterMercy Health Willard Hospital03-28-2023 Miscellaneous Notes* Telephone Encounter - Mackenzie [...] you. Mackenzie Elmore LPN documented in this encounterMercy Health Willard Hospital03-09-2023 Miscellaneous Notes* Telephone Encounter - Lillie [...] of Last Labs: 12/13/2021 documented in this encounterMercy Health Willard Hospital02-23-2023 History of Present illness Narrative* Marilee [...] a duplex near by her mother in [place] a couple years ago and is actually [...] for her prader villie syndrome. He said thata video chat is [...] cream ammonium lactate (LAC-HYDRIN) 12 % cream gmxrtab-wckgemxql-vfkwknv D3 (OYSTER SHELL CALCIUM-VITAMIN D) 500 mg(1,250mg) [...] stockings Marilee Thakur MD documented in this encounterMercy Health Willard Hospital01-12-2023 History of Present illness Narrative* Mika Kaplan, PAN DEVULCANIZER.BULB INSPECTOR - 03/21/2022 1:18 PM EST CC: Patient [...] ON LEGS AT BEDTIME^Disp: 280 g^Rfl: 10 lwziqck-oflyyvgvf-jceezky D3 (OYSTER SHELL CALCIUM-VITAMIN D) 500 mg(1,250mg) [...] plan. Mika Kaplan APRN.CNP documented in this encounterMercy Health Willard Hospital11-29-2022 Miscellaneous Notes* Telephone Encounter - Pascale [...] you. Pascale Lorenzo LPN documented in this encounterMercy Health Willard Hospital11-22-2022 History of Present illness Narrative* Marilee [...] take some vit b12. For her Prader Conchita, she had an echo, which showed normal [...] cream ammonium lactate (LAC-HYDRIN) 12 % cream qnbfzlh-ijygjdgew-kqssusu D3 (OYSTER SHELL CALCIUM-VITAMIN D) 500 mg(1,250mg) [...] Z72.820 Marilee Thakur MD documented in this encounterMercy Health Willard Hospital11-16-2022 Miscellaneous Notes* Telephone Encounter - Regan Neville Ma - 01/23/2022 3:05 PM EST Taken to medical records. Anali notified. Regan Neville Ma * Telephone Encounter - Candelaria Ball LPN - 01/22/2022 3:48 PM EST Patient caregiver Anali calling to check status of request for handicap placard rx renewal rx. * Telephone Encounter - Candelaria Ball LPN - 01/11/2022 8:11 AM EDT Patient healthcare associate Anali calling to check status of request. * Telephone Encounter - Eulalia Laureano RN - 01/07/2022 3:06 PM EDT Anali (sugar house supervisor) calls to request 2 handicap placards for patient. Anali will cotton picking machine operator in medical records if provider agrees. Pended. Eulalia Laureano RN documented in this encounterMercy Health Willard Hospital10-06-2022 Miscellaneous Notes* Telephone Encounter - Pepper Walsh RN - 12/13/2021 11:01 AM EDT Clarence Calderon with [facility] calling to confirm PCP for patient. Information confirmed. Pepper Walsh RN documented in this encounterMercy Health Willard Hospital09-22-2022 Miscellaneous Notes* Telephone Encounter - María Avila Ma - 11/29/2021 2:29 PM EDT Anali, sugar house supervisor notified. * Telephone Encounter - Marilee Thakur [...] speak with PCP. Please call him at [phone] between 12-3 PM today. documented in this encounterMercy Health Willard Hospital09-01-2022 History of Present illness Narrative* PWS CLINIC * Deepali is a 42 year old female who has presented to the PWS multidisciplinary clinic at [facility]. 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 History was obtained by the patient, [...] past. * PCP: Dr. Marilee Thakur at [facility], fax number [phone], is currently seeing an STRINGED INSTRUMENT REPAIRER named Older at this office * Interval [...] and Friday, where she works out (e.g., [employer], [employer]) half a day. She just received a [...] records - they may be accessible on [employer], and will hopefully be more available on [employer]. * - Seeing Gynecology for OCP (for [...] * - We plan to call the manager group home [facility] to discuss her care, and will recommend the patient's mother come with her to future visits as well. * ROS negative if not mentioned above, pertinent positives in HPI. [address] Work Phone: [phone]) [phone] History of Present illness Narrative* Marilee Thakur MD - 10/29/2021 10:02 AM EDT Reason for Visit Patient presents with: Recheck: 4 month follow up Sia Abdul is a 41 year old female who presents here today for Above Complaints.. Health Maintenance HEPATITIS B(1 of 3 - 3-dose series) SPIROMETRY PNEUMOCOCCAL(2 - PCV) COVID-19 VACCINE(3 - Booster for Moderna series) HPI For her Prader Conchita, she had an echo, which showed normal [...] cream ammonium lactate (LAC-HYDRIN) 12 % cream ytxwcur-gblgevkex-tzudarg D3 (OYSTER SHELL CALCIUM-VITAMIN D) 500 mg(1,250mg) [...] basis. Marilee Thakur MD documented in this encounterMercy Health Willard Hospital07-14-2022 Miscellaneous Notes* Telephone Encounter - Alexia Prater LPN - 09/20/2021 8:36 AM EDT Patient has been identified by name and date of : Yes Patient phones for refill(s): Pending Prescriptions Disp Refills POTASSIUM CHLORIDE ER 10 MEQ TABLET,EXTENDED RELEASE 45 tablet 2 Sig: Take one tablet on days when you are taking lasix. NAIMA: No Refused Prescriptions Disp Refills Fish Oil-Powderly-3 Fatty Acids (FISH OIL) 340-1,000 mg cap 31 capsule 10 Sig: Take 1 capsule by mouth once daily. NAIMA: No levothyroxine (SYNTHROID) 100 mcg tablet 31 tablet 10 NAIMA: No Date of last office visit in primary care: 06/28/21 Please advise. Thank you. Alexia Prater LPN documented in this encounterMercy Health Willard Hospital06-28-2022 Miscellaneous Notes* Telephone Encounter - Alexia [...] review. Alexia Lin MA documented in this [facility]06-24-2022 Miscellaneous Notes* Telephone Encounter - María [...] of office Th and Fri. Routing to STRINGED INSTRUMENT REPAIRER. Yazan Franco LPN * Telephone Encounter - Annie Brand RN - 08/29/2021 1:42 PM EDT RODRÍGUEZ Crabtree @ [facility] calling to let PCP know patient was recertified for continued nursing visits 1 x/week for nine weeks for weekly skin checks. Asking for verbal saying Dr. Ross and will continue to follow orders. #[phone]. Annie Brand RN documented in this encounterMercy Health Willard Hospital06-13-2022 History of Present illness Narrative* Rae [...] 2 PUFFS BY MOUTH TWICE DAILY( INSTRUCTED) *[facility] [place] Lymphedema massage therapy IRAIDA 0.35 mg tablet [...] TO AFFECTED AREA(S) ON LEGS AT BEDTIME nxispcn-ngqnwioqz-vbeypjt D3 (OYSTER SHELL CALCIUM-VITAMIN D) 500 mg(1,250mg) [...] plan. Rae Kaplan APRN.CNP documented in this encounterMercy Health Willard Hospital06-13-2022 Instructions* Patient Instructions* Rae Kaplan APRN.CNP - 08/20/2021 3:59 PM EDT Keep area(s) clean and dry. Apply Lotrisone cream twice a day If any unusual pain, swelling, red streaks, pus, fever or other signs of worsening infection, call immediately. documented in this encounterMercy Health Willard Hospital06-07-2022 Miscellaneous Notes* Telephone Encounter - Alexia [...] review. Alexia Lin MA documented in this encounterMercy Health Willard Hospital04-29-2022 Miscellaneous Notes* Telephone Encounter - Pascale Lorenzo LPN - 07/06/2021 5:01 PM EDT Order has been faxed. Pascale Lorenzo LPN * Telephone Encounter - Marilee Thakur MD - 07/06/2021 4:41 PM EDT Yes * Telephone Encounter - Lillie Marshall RN - 07/06/2021 11:15 AM EDT Vikki MAZA from [facility] calls and is asking if provider will write an order for Lymphedema massage therapy treatment? If agreeable please fax order to either: Or Lillie Marshall RN documented in this encounterMercy Health Willard Hospital04-21-2022 Miscellaneous Notes* Telephone Encounter - Marilee [...] concern. Annie Brand RN documented in this encounterMercy Health Willard Hospital04-21-2022 History of Present illness Narrative* Marilee [...] cream ammonium lactate (LAC-HYDRIN) 12 % cream wxevjoi-nmdlvcpad-sirwddi D3 (OYSTER SHELL CALCIUM-VITAMIN D) 500 mg(1,250mg) - 200 unit per tablet potassium chloride (K-TAB) 10 mEq tablet CERTAVITE-ANTIOXIDANT levothyroxine (SYNTHROID) 100 mcg tablet Gauze Bandage 2 X 2 bndg Desogestrel-Ethinyl Estradiol (APRI) 0.15-0.03 mg per tablet fluticasone (FLONASE) 50 mcg/actuation nasal spray Fish Oil-Powderly-3 Fatty Acids (FISH OIL) 340-1,000 mg cap [...] shower Marilee Thakur MD documented in this encounterMercy Health Willard Hospital04-15-2022 Miscellaneous Notes* Telephone Encounter - Kristie Khan Ma - 06/22/2021 8:57 AM EDT Brianna notified and verbalized understanding. Kristie Khan Ma * Telephone Encounter - Jacquelyn Allen APRN.CNP - 06/22/2021 8:53 AM EDT Agree with below. Jacquelyn Allen APRN.CNP * Telephone Encounter - Pamela Singh LPN - 06/22/2021 8:45 AM EDT Brianna Moise with [facility] called and states they were contacted to have nursing comeinto the skilled nursing for pt weekly. This will be for skin issues and weight issues. Pt was identified with name and date of . Requesting the followin. verbal order to start care in the home weekly. Okay to leave a message 2. fax last OV for PCP - 04/23/21 to [phone]. This has been faxed. Pamela Singh LPN documented in this encounterMercy Health Willard Hospital04-07-2022 Miscellaneous Notes* Telephone Encounter - María Avila Ma - 06/14/2021 12:42 PM EDT Ready for cotton picking machine operator in Medical Records. * Telephone [...] workshop. Mima Parson LPN documented in this encounterMercy Health Willard Hospital03-30-2022 Miscellaneous Notes* Telephone Encounter - Alexia Aviles Ma - 06/06/2021 2:57 PM EDT manager video games notified * Telephone Encounter - Alexia Aviles Ma - 06/06/2021 2:56 PM EDT ----- Message from Marilee Thakur MD sent at 06/01/2021 5:32 PM EDT ----- Hip joint and synovium are normal documented in this encounterMercy Health Willard Hospital12-09-2021 NoteHNO ID: [id number] Author: Ricki Hirsch MD Service: ? Author [...] needed basis. This note was generated with Dragon dictation software. It may contain incorrect words, spelling, and punctuation and that were not noted in review of the chart prior to signing. I spent 15 minutes in the visit, with more than 50% of the total amlz-wf-flbs time of the visit in counseling / coordination of care. Recommendations: #1 continue lymphedema pumping #2 continue lymphedema wraps #3 check with primary care physician and if no contraindications begin enteric-coated baby aspirin on a daily basis.[facility] 01-18-2021 NoteHNO ID: [id number] Author: Ricki Hirsch MD Service: ? Author [...] a month. This note was generated with [employer] dictation software. It may contain incorrect words, spelling, and punctuation and that were not noted in review of the chart prior to signing. I spent 15 minutes in the visit, with more than 50% of the total zmso-ej-nicz time of the visit in counseling / coordination of care.[facility]11-08-2016 History of Past illness Narrative* Problem Noted Date Resolved Date Venous stasis ulcers 01/16/2016 06/17/2016 BMI 40.0-44.9, adult 12/14/2014 02/09/2015 BMI 50.0-59.9, adult 10/11/2013 12/14/2014 Other lymphedema 04/26/2013 12/14/2014 Mental status change 01/08/2013 12/13/2013 Overview: Transient mental status change; [facility], 12/09/12 Amenorrhea 06/18/2011 12/07/2015 Open wound [...] this encounter (statuses as of 06/06/2021) [facility] of Past illness Narrative* Problem Noted Date Resolved Date Venous stasis ulcers 01/16/2016 06/17/2016 BMI 40.0-44.9, adult 12/14/2014 02/09/2015 BMI 50.0-59.9, adult 10/11/2013 12/14/2014 Other lymphedema 04/26/2013 12/14/2014 Mental status change 01/08/2013 12/13/2013 Overview: Transient mental status change; [facility], 12/09/12 Amenorrhea 06/18/2011 12/07/2015 Open wound [...] this encounter (statuses as of 06/14/2021) [facility]11[facility] History of Past illness Narrative* Problem Noted Date Resolved Date Venous stasis ulcers 01/16/2016 06/17/2016 BMI 40.0-44.9, adult 12/14/2014 02/09/2015 BMI 50.0-59.9, adult 10/11/2013 12/14/2014 Other lymphedema 04/26/2013 12/14/2014 Mental status change 01/08/2013 12/13/2013 Overview: Transient mental status change; [facility], 12/09/12 Amenorrhea 06/18/2011 12/07/2015 Open wound [...] this encounter (statuses as of 06/22/2021) [facility] of Past illness Narrative* Problem Noted Date Resolved Date Venous stasis ulcers 01/16/2016 06/17/2016 BMI 40.0-44.9, adult 12/14/2014 02/09/2015 BMI 50.0-59.9, adult 10/11/2013 12/14/2014 Other lymphedema 04/26/2013 12/14/2014 Mental status change 01/08/2013 12/13/2013 Overview: Transient mental status change; [facility], 12/09/12 Amenorrhea 06/18/2011 12/07/2015 Open wound [...] this encounter (statuses as of 06/28/2021) [facility] of [facility] illness Narrative* Problem Noted Date Resolved Date Venous stasis ulcers 01/16/2016 06/17/2016 BMI 40.0-44.9, adult 12/14/2014 02/09/2015 BMI 50.0-59.9, adult 10/11/2013 12/14/2014 Other lymphedema 04/26/2013 12/14/2014 Mental status change 01/08/2013 12/13/2013 Overview: Transient mental status change; [facility], 12/09/12 Amenorrhea 06/18/2011 12/07/2015 Open wound [...] this encounter (statuses as of 06/28/2021) [facility] of [facility] illness Narrative* Problem Noted Date Resolved Date Venous stasis ulcers 01/16/2016 06/17/2016 BMI 40.0-44.9, adult 12/14/2014 02/09/2015 BMI 50.0-59.9, adult 10/11/2013 12/14/2014 Other lymphedema 04/26/2013 12/14/2014 Mental status change 01/08/2013 12/13/2013 Overview: Transient mental status change; [facility], 12/09/12 Amenorrhea 06/18/2011 12/07/2015 Open wound [...] this encounter (statuses as of 07/06/2021) [facility] of [facility] illness Narrative* Problem Noted Date Resolved Date Venous stasis ulcers 01/16/2016 06/17/2016 BMI 40.0-44.9, adult 12/14/2014 02/09/2015 BMI 50.0-59.9, adult 10/11/2013 12/14/2014 Other lymphedema 04/26/2013 12/14/2014 Mental status change 01/08/2013 12/13/2013 Overview: Transient mental status change; [facility], 12/09/12 Amenorrhea 06/18/2011 12/07/2015 Open wound [...] this encounter (statuses as of 08/15/2021) [facility] of [facility] illness Narrative* Problem Noted Date Resolved Date Venous stasis ulcers 01/16/2016 06/17/2016 BMI 40.0-44.9, adult 12/14/2014 02/09/2015 BMI 50.0-59.9, adult 10/11/2013 12/14/2014 Other lymphedema 04/26/2013 12/14/2014 Mental status change 01/08/2013 12/13/2013 Overview: Transient mental status change; [facility], 12/09/12 Amenorrhea 06/18/2011 12/07/2015 Open wound [...] this encounter (statuses as of 08/20/2021) [facility] of [facility] illness Narrative* Problem Noted Date Resolved Date Venous stasis ulcers 01/16/2016 06/17/2016 BMI 40.0-44.9, adult 12/14/2014 02/09/2015 BMI 50.0-59.9, adult 10/11/2013 12/14/2014 Other lymphedema 04/26/2013 12/14/2014 Mental status change 01/08/2013 12/13/2013 Overview: Transient mental status change; [facility], 12/09/12 Amenorrhea 06/18/2011 12/07/2015 Open wound [...] this encounter (statuses as of 08/31/2021) [facility] of [facility] illness Narrative* Problem Noted Date Resolved Date Venous stasis ulcers 01/16/2016 06/17/2016 BMI 40.0-44.9, adult 12/14/2014 02/09/2015 BMI 50.0-59.9, adult 10/11/2013 12/14/2014 Other lymphedema 04/26/2013 12/14/2014 Mental status change 01/08/2013 12/13/2013 Overview: Transient mental status change; [facility], 12/09/12 Amenorrhea 06/18/2011 12/07/2015 Open wound [...] this encounter (statuses as of 09/05/2021) [facility] of [facility] illness Narrative* Problem Noted Date Resolved Date Venous stasis ulcers 01/16/2016 06/17/2016 BMI 40.0-44.9, adult 12/14/2014 02/09/2015 BMI 50.0-59.9, adult 10/11/2013 12/14/2014 Other lymphedema 04/26/2013 12/14/2014 Mental status change 01/08/2013 12/13/2013 Overview: Transient mental status change; [facility], 12/09/12 Amenorrhea 06/18/2011 12/07/2015 Open wound [...] this encounter (statuses as of 09/20/2021) [facility] of [facility] Narrative* Problem Noted Date Resolved Date Venous stasis ulcers 01/16/2016 06/17/2016 BMI 40.0-44.9, adult 12/14/2014 02/09/2015 BMI 50.0-59.9, adult 10/11/2013 12/14/2014 Other lymphedema 04/26/2013 12/14/2014 Mental status change 01/08/2013 12/13/2013 Overview: Transient mental status change; [facility], 12/09/12 Amenorrhea 06/18/2011 12/07/2015 Open wound [...] this encounter (statuses as of 10/29/2021) [facility]11-08-2016 History of Past illness Narrative* Problem Noted Date Resolved Date Venous stasis ulcers 01/16/2016 06/17/2016 BMI 40.0-44.9, adult 12/14/2014 02/09/2015 BMI 50.0-59.9, adult 10/11/2013 12/14/2014 Other lymphedema 04/26/2013 12/14/2014 Mental status change 01/08/2013 12/13/2013 Overview: Transient mental status change; [facility], 12/09/12 Amenorrhea 06/18/2011 12/07/2015 Open wound [...] this encounter (statuses as of 11/29/2021) [facility] History of Past illness Narrative* Problem Noted Date Resolved Date Venous stasis ulcers 01/16/2016 06/17/2016 BMI 40.0-44.9, adult 12/14/2014 02/09/2015 BMI 50.0-59.9, adult 10/11/2013 12/14/2014 Other lymphedema 04/26/2013 12/14/2014 Mental status change 01/08/2013 12/13/2013 Overview: Transient mental status change; [facility], 12/09/12 Amenorrhea 06/18/2011 12/07/2015 Open wound [...] this encounter (statuses as of 12/13/2021) [facility] History of Past illness Narrative* Problem Noted Date Resolved Date Venous stasis ulcers 01/16/2016 06/17/2016 BMI 40.0-44.9, adult 12/14/2014 02/09/2015 BMI 50.0-59.9, adult 10/11/2013 12/14/2014 Other lymphedema 04/26/2013 12/14/2014 Mental status change 01/08/2013 12/13/2013 Overview: Transient mental status change; [facility], 12/09/12 Amenorrhea 06/18/2011 12/07/2015 Open wound [...] this encounter (statuses as of 01/23/2022) [facility] History of Past illness Narrative* Problem Noted Date Resolved Date Venous stasis ulcers 01/16/2016 06/17/2016 BMI 40.0-44.9, adult 12/14/2014 02/09/2015 BMI 50.0-59.9, adult 10/11/2013 12/14/2014 Other lymphedema 04/26/2013 12/14/2014 Mental status change 01/08/2013 12/13/2013 Overview: Transient mental status change; [facility], 12/09/12 Amenorrhea 06/18/2011 12/07/2015 Open wound [...] this encounter (statuses as of 01/29/2022) [facility] History of Past illness Narrative* Problem Noted Date Resolved Date Venous stasis ulcers 01/16/2016 06/17/2016 BMI 40.0-44.9, adult 12/14/2014 02/09/2015 BMI 50.0-59.9, adult 10/11/2013 12/14/2014 Other lymphedema 04/26/2013 12/14/2014 Mental status change 01/08/2013 12/13/2013 Overview: Transient mental status change; [facility], 12/09/12 Amenorrhea 06/18/2011 12/07/2015 Open wound [...] this encounter (statuses as of 02/06/2022) [facility] History of Past illness Narrative* Problem Noted Date Resolved Date Venous stasis ulcers 01/16/2016 06/17/2016 BMI 40.0-44.9, adult 12/14/2014 02/09/2015 BMI 50.0-59.9, adult 10/11/2013 12/14/2014 Other lymphedema 04/26/2013 12/14/2014 Mental status change 01/08/2013 12/13/2013 Overview: Transient mental status change; [facility], 12/09/12 Amenorrhea 06/18/2011 12/07/2015 Open wound [...] this encounter (statuses as of 03/22/2022) [facility] History of Past illness Narrative* Problem Noted Date Resolved Date Venous stasis ulcers 01/16/2016 06/17/2016 BMI 40.0-44.9, adult 12/14/2014 02/09/2015 BMI 50.0-59.9, adult 10/11/2013 12/14/2014 Other lymphedema 04/26/2013 12/14/2014 Mental status change 01/08/2013 12/13/2013 Overview: Transient mental status change; [facility], 12/09/12 Amenorrhea 06/18/2011 12/07/2015 Open wound [...] this encounter (statuses as of 05/02/2022) [facility] History of Past illness Narrative* Problem Noted Date Resolved Date Venous stasis ulcers 01/16/2016 06/17/2016 BMI 40.0-44.9, adult 12/14/2014 02/09/2015 BMI 50.0-59.9, adult 10/11/2013 12/14/2014 Other lymphedema 04/26/2013 12/14/2014 Mental status change 01/08/2013 12/13/2013 Overview: Transient mental status change; [facility], 12/09/12 Amenorrhea 06/18/2011 12/07/2015 Open wound [...] this encounter (statuses as of 05/17/2022) [facility] History of Past illness Narrative* Problem Noted Date Resolved Date Venous stasis ulcers 01/16/2016 06/17/2016 BMI 40.0-44.9, adult 12/14/2014 02/09/2015 BMI 50.0-59.9, adult 10/11/2013 12/14/2014 Other lymphedema 04/26/2013 12/14/2014 Mental status change 01/08/2013 12/13/2013 Overview: Transient mental status change; [facility], 12/09/12 Amenorrhea 06/18/2011 12/07/2015 Open wound [...] this encounter (statuses as of 06/06/2022) [facility] History of Past illness Narrative* Problem Noted Date Resolved Date Venous stasis ulcers 01/16/2016 06/17/2016 BMI 40.0-44.9, adult 12/14/2014 02/09/2015 BMI 50.0-59.9, adult 10/11/2013 12/14/2014 Other lymphedema 04/26/2013 12/14/2014 Mental status change 01/08/2013 12/13/2013 Overview: Transient mental status change; [facility], 12/09/12 Amenorrhea 06/18/2011 12/07/2015 Open wound [...] this encounter (statuses as of 07/18/2022) [facility] History of Past illness Narrative* Problem Noted Date Resolved Date Venous stasis ulcers 01/16/2016 06/17/2016 BMI 40.0-44.9, adult 12/14/2014 02/09/2015 BMI 50.0-59.9, adult 10/11/2013 12/14/2014 Other lymphedema 04/26/2013 12/14/2014 Mental status change 01/08/2013 12/13/2013 Overview: Transient mental status change; [facility], 12/09/12 Amenorrhea 06/18/2011 12/07/2015 Open wound [...] this encounter (statuses as of 08/08/2022) [facility] History of Past illness Narrative* Problem Noted Date Resolved Date Venous stasis ulcers 01/16/2016 06/17/2016 BMI 40.0-44.9, adult 12/14/2014 02/09/2015 BMI 50.0-59.9, adult 10/11/2013 12/14/2014 Other lymphedema 04/26/2013 12/14/2014 Mental status change 01/08/2013 12/13/2013 Overview: Transient mental status change; [facility], 12/09/12 Amenorrhea 06/18/2011 12/07/2015 Open wound [...] this encounter (statuses as of 08/23/2022) [facility] History of Past illness Narrative* Problem Noted Date Resolved Date Venous stasis ulcers 01/16/2016 06/17/2016 BMI 40.0-44.9, adult 12/14/2014 02/09/2015 BMI 50.0-59.9, adult 10/11/2013 12/14/2014 Other lymphedema 04/26/2013 12/14/2014 Mental status change 01/08/2013 12/13/2013 Overview: Transient mental status change; [facility], 12/09/12 Amenorrhea 06/18/2011 12/07/2015 Open wound [...] this encounter (statuses as of 08/27/2022) [facility] History of Past illness Narrative* Problem Noted Date Diagnosed Date Resolved Date Venous stasis ulcers 01/16/2016 017 BMI 40.0-44.9, adult 12/14/2014 015 BMI 50.0-59.9, adult 10/11/2013 015 Other lymphedema 04/26/2013 12/14/2014 Mental status change 01/08/2013 014 Overview: Transient mental status change; [facility], 12/09/12 Amenorrhea 06/18/2011 12/07/2015 Open wound [...] this encounter (statuses as of 10/10/2022) [facility] History of Past illness Narrative* Problem Noted Date Diagnosed Date Resolved Date Venous stasis ulcers 01/16/2016 017 BMI 40.0-44.9, adult 12/14/2014 015 BMI 50.0-59.9, adult 10/11/2013 015 Other lymphedema 04/26/2013 12/14/2014 Mental status change 01/08/2013 014 Overview: Transient mental status change; [facility], 12/09/12 Amenorrhea 06/18/2011 12/07/2015 Open wound [...] this encounter (statuses as of 10/11/2022) [facility] History of Past illness Narrative* Problem Noted Date Diagnosed Date Resolved Date Venous stasis ulcers 01/16/2016 017 BMI 40.0-44.9, adult 12/14/2014 015 BMI 50.0-59.9, adult 10/11/2013 015 Other lymphedema 04/26/2013 12/14/2014 Mental status change 01/08/2013 014 Overview: Transient mental status change; [facility], 12/09/12 Amenorrhea 06/18/2011 12/07/2015 Open wound [...] this encounter (statuses as of 10/24/2022) [facility] History of Past illness Narrative* Problem Noted Date Diagnosed Date Resolved Date Venous stasis ulcers 01/16/2016 017 BMI 40.0-44.9, adult 12/14/2014 015 BMI 50.0-59.9, adult 10/11/2013 015 Other lymphedema 04/26/2013 12/14/2014 Mental status change 01/08/2013 014 Overview: Transient mental status change; [facility], 12/09/12 Amenorrhea 06/18/2011 12/07/2015 Open wound [...] this encounter (statuses as of 10/25/2022) [facility] History of Past illness Narrative* Problem Noted Date Diagnosed Date Resolved Date Venous stasis ulcers 01/16/2016 017 BMI 40.0-44.9, adult 12/14/2014 015 BMI 50.0-59.9, adult 10/11/2013 015 Other lymphedema 04/26/2013 12/14/2014 Mental status change 01/08/2013 014 Overview: Transient mental status change; [facility], 12/09/12 Amenorrhea 06/18/2011 12/07/2015 Open wound [...] this encounter (statuses as of 10/29/2022) [facility] History of Past illness Narrative* Problem Noted Date Diagnosed Date Resolved Date Venous stasis ulcers 01/16/2016 017 BMI 40.0-44.9, adult 12/14/2014 015 BMI 50.0-59.9, adult 10/11/2013 015 Other lymphedema 04/26/2013 12/14/2014 Mental status change 01/08/2013 014 Overview: Transient mental status change; [facility], 12/09/12 Amenorrhea 06/18/2011 12/07/2015 Open wound [...] this encounter (statuses as of 12/14/2022) [facility] History of Past illness Narrative* Problem Noted Date Diagnosed Date Resolved Date Venous stasis ulcers 01/16/2016 017 BMI 40.0-44.9, adult 12/14/2014 015 BMI 50.0-59.9, adult 10/11/2013 015 Other lymphedema 04/26/2013 12/14/2014 Mental status change 01/08/2013 014 Overview: Transient mental status change; [facility], 12/09/12 Amenorrhea 06/18/2011 12/07/2015 Open wound [...] this encounter (statuses as of 01/21/2023) [facility] History of Past illness Narrative* Problem Noted Date Diagnosed Date Resolved Date Venous stasis ulcers 01/16/2016 017 BMI 40.0-44.9, adult 12/14/2014 015 BMI 50.0-59.9, adult 10/11/2013 015 Other lymphedema 04/26/2013 12/14/2014 Mental status change 01/08/2013 014 Overview: Transient mental status change; [facility], 12/09/12 Amenorrhea 06/18/2011 12/07/2015 Open wound [...] this encounter (statuses as of 02/04/2023) [facility] History of Past illness Narrative* Problem Noted Date Diagnosed Date Resolved Date Venous stasis ulcers 01/16/2016 017 BMI 45.0-49.9, adult 02/09/2015 024 BMI 40.0-44.9, adult 12/14/2014 015 BMI 50.0-59.9, adult 10/11/2013 015 Other lymphedema 04/26/2013 12/14/2014 Mental status change 01/08/2013 014 Overview: Transient mental status change; [facility], 12/09/12 Amenorrhea 06/18/2011 12/07/2015 Open wound [...] this encounter (statuses as of 05/30/2023) [facility] History of Past illness Narrative* Problem Noted Date Diagnosed Date Resolved Date Venous stasis ulcers 01/16/2016 017 BMI 45.0-49.9, adult 02/09/2015 024 BMI 40.0-44.9, adult 12/14/2014 015 BMI 50.0-59.9, adult 10/11/2013 015 Other lymphedema 04/26/2013 12/14/2014 Mental status change 01/08/2013 014 Overview: Transient mental status change; [facility], 12/09/12 Amenorrhea 06/18/2011 12/07/2015 Open wound [...] this encounter (statuses as of 06/10/2023) [facility] History of Past illness Narrative* Problem Noted Date Diagnosed Date Resolved Date Venous stasis ulcers 01/16/2016 017 BMI 45.0-49.9, adult 02/09/2015 024 BMI 40.0-44.9, adult 12/14/2014 015 BMI 50.0-59.9, adult 10/11/2013 015 Other lymphedema 04/26/2013 12/14/2014 Mental status change 01/08/2013 014 Overview: Transient mental status change; [facility], 12/09/12 Amenorrhea 06/18/2011 12/07/2015 Open wound [...] of this encounter (statuses as of 06/13/2023) [facility] No data available for this section [facility] Evaluation + Plan note Future Appointments Appointment Date:10/26/2024 11:30:00 AM Scheduled Provider: Location:[facility] Appointment Type:CV OV Appointment Date:11/03/2024 02:45:00 PM Scheduled Provider:MARCELINO FALK Location:[facility] Appointment Type:CV OV Diagnostic Tests Pending * Basic Metabolic Panel 09/28/24 * N-Terminal proBNP 09/28/24 [facility] Evaluation note* Diagnosis Prader-Willi syndrome- Primary SOB (shortness of breath) Shortness of breath Physical therapy evaluation, initial Other specified examination documented in this encounter [facility] note* Diagnosis Lymphedema- Primary Other lymphedema Prader-Willi syndrome documented in this encounter [facility] note* Diagnosis Skin ulcer of left thigh, limited to breakdown of skin (HCC)- Primary [facility] Diagnosis Lymphedema Other lymphedema [facility] Diagnosis Prader-Willi syndrome- Primary Skin ulcer, limited to breakdown of skin (HCC) Pedal edema Edema Mild persistent asthma without complication Unspecified asthma Obstructive sleep apnea syndrome Obstructive sleep apnea (adult) (pediatric) [facility] Diagnosis Prader-Willi syndrome- Primary Lipid screening Screening for lipoid disorders Encounter for screening for diabetes mellitus Screening for diabetes mellitus Vitamin D deficiency Unspecified vitamin D deficiency Elevated blood sugar Other abnormal glucose Hypothyroidism, unspecified type [facility] Diagnosis Obstructive sleep apnea syndrome- Primary Obstructive sleep apnea (adult) (pediatric) Encounter for immunization Need for other specified prophylactic vaccination against single bacterial disease Mild intermittent asthma without complication Unspecified asthma Acquired hypothyroidism Unspecified hypothyroidism Lymphedema of right lower extremity Lymphedema of left lower extremity Sleep deprivation Problems related to lack of adequate sleep [facility] Diagnosis Lymphedema Other lymphedema [facility] Diagnosis Bilateral chronic knee pain- Primary Pain in joint, lower leg Acute cough [facility] Diagnosis Annual physical exam- Primary Routine general medical examination at a health care facility 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 Obstructive sleep apnea syndrome Obstructive sleep apnea (adult) (pediatric) Mild intermittent asthma without complication Unspecified asthma Acquired hypothyroidism Unspecified hypothyroidism Lymphedema of left lower extremity [facility] Diagnosis 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 Bee allergy status Allergy to insects and arachnids [facility] Diagnosis Onset Date Resolution Status Menorrhagia with regular cycle acute Encounter for routine gynecological examination noneactive [facility] Work Phone: Evaluation note* Diagnosis Strain of lumbar region, subsequent encounter [facility] Diagnosis Strain of lumbar region, subsequent encounter [facility]* Diagnosis Medication management Encounter for long-term (current) use of other medications Acquired hypothyroidism Unspecified hypothyroidism [facility] Diagnosis Lymphedema- Primary Other lymphedema Obstructive sleep apnea syndrome Obstructive sleep apnea (adult) (pediatric) Acquired hypothyroidism Unspecified hypothyroidism Mild intermittent asthma without complication Unspecified asthma [facility] Diagnosis Bronchitis Bronchitis, not specified as acute or chronic [facility] Diagnosis 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 Bee allergy status Allergy to insects and arachnids [facility] Diagnosis Hypothalamic hypogonadism (HCC)- Primary Other [...] unspecified type [facility]* Diagnosis Hypothalamic hypogonadism (HCC)- Primary Other [...] Other lymphedema [facility]* Diagnosis Hypothalamic hypogonadism (HCC)- Primary Other [...] left lower quadrant [facility]* Diagnosis Hypothalamic hypogonadism (HCC)- Primary Other [...] of other medications [facility] Diagnosis Hypothalamic hypogonadism (HCC)- Primary Other [...] right lower extremity [facility] Diagnosis Hypothalamic hypogonadism (HCC)- Primary Other [...] Heart disease, unspecified [facility] Diagnosis Acute on chronic right-sided heart failure- Primary Dyspnea on exertion Other dyspnea and respiratory abnormality Morbid obesity (Multi) Morbid obesity Prader-Willi syndrome (HHS-HCC) Prader-Willi syndrome Shortness of breath Bilateral lower extremity edema Pulmonary hypertension (Multi) Other chronic pulmonary heart diseases documented in this encounter [facility] Work Phone: Evaluation note* Diagnosis Dyspnea on exertion Other dyspnea and respiratory abnormality Bilateral lower extremity edema documented in this encounter [facility] Work Phone: Evaluation note* Diagnosis Hypothalamic [...] disorders Anasarca Edema [facility] Diagnosis Hypothalamic hypogonadism (HCC)- Primary [...] disorders Prader-Willi syndrome [facility] Diagnosis Hypothalamic hypogonadism (HCC)- Primary Other [...] hypothyroidism Unspecified hypothyroidism [facility] Diagnosis Hypothalamic hypogonadism (HCC)- Primary Other [...] lymphedema Prader-Willi syndrome [facility] Diagnosis Hypothalamic hypogonadism (HCC)- Primary [...] Hematuria, unspecified type [facility] Diagnosis Hypothalamic hypogonadism (HCC)- Primary [...] lymphedema Prader-Willi syndrome [facility] Diagnosis Chronic right-sided heart failure- Primary Congestive heart failure, unspecified Dyspnea on exertion Other dyspnea and respiratory abnormality Morbid obesity (Multi) Morbid obesity Prader-Willi syndrome (HHS-HCC) Prader-Willi syndrome Shortness of breath Bilateral lower extremity edema documented in this encounter [facility] Work Phone: Evaluation note* Diagnosis Hypothalamic [...] Primary Unspecified asthma [facility] Diagnosis Hypothalamic hypogonadism (HCC)- Primary Other [...] unspecified abdominal location [facility] Diagnosis Hyperglycemia- Primary Other abnormal glucose Prader-Willi syndrome (HHS-HCC) Prader-Willi syndrome Hypothyroidism, unspecified type Hyperlipidemia, unspecified hyperlipidemia type Class 3 severe obesity with serious comorbidity and body mass index (BMI) of 50.0 to 59.9 in adult, unspecified obesity type documented in this encounter [facility] Work Phone: Evaluation note* Diagnosis Hypothalamic [...] heart failure (HCC) [facility] Diagnosis Chronic right-sided heart failure- Primary Congestive heart failure, unspecified Right ventricular dysfunction Unspecified heart disease Prader-Willi syndrome (HHS-HCC) Prader-Willi syndrome Bilateral lower extremity edema documented in this encounter [facility] Work Phone: Evaluation note* Diagnosis Hypothalamic [...] soft tissue, unspecified [facility] Diagnosis Hypothalamic hypogonadism (HCC)- Primary [...] insects and arachnids Mild intermittent asthma without complication (HCC) Unspecified asthma [facility] Diagnosis Hypothalamic hypogonadism (HCC)- Primary [...] allergy status Allergy to insects and arachnids Encounter for screening mammogram for breast cancer [facility] Diagnosis Hypothalamic hypogonadism (HCC)- Primary [...] allergy status Allergy to insects and arachnids Moderate persistent asthma, unspecified whether complicated (HCC)- Primary Prader-Willi syndrome (HCC) Prader-Willi syndrome Pulmonary hypertension (HCC) Other chronic pulmonary heart diseases Acute diastolic congestive heart failure (HCC) Acute diastolic heart failure Obstructive sleep apnea syndrome Obstructive sleep apnea (adult) (pediatric) Acquired hypothyroidism Unspecified hypothyroidism Acute on chronic diastolic congestive heart failure (HCC) Acute on chronic diastolic heart failure Obesity hypoventilation syndrome (HCC) Obesity hypoventilation syndrome Cardiac arrest (HCC) Cardiac arrest Morbid obesity (HCC) Morbid obesity [facility] Diagnosis Hypothalamic hypogonadism (HCC)- Primary [...] Other lymphedema [facility]* Sia is a 40 y/o female with history of PWS. * She was last seen in clinic in June of 2020. * At that time skilled nursing was observing food stealing behaviors. 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 * She does have a roommate. * She is present with sugar house supervisor Anali today. * She goes to mom's [...] * L - likes crab and shrimp, pashto chicken; salad; bread * S - after [...] 0.8 gm pro/kg DBW ( * 38gm) [id number] [address] Work Phone: History of Present illness [...] other weekend. When visiting her mom, the skilled nursing packs her food and medicine for her to bring. Patient reports that her mom has a camera at home so she can monitor how much food Cristina gets when she is at her moms house. Cristina's sugar house supervisor also reported that the fride, freezer and pantry at the skilled nursing is locked and Cristina has no way of getting any outside food. She does currently take a MVI with Iron as well as Vit D and fish oil. Her most recent labs are from 2020. [facility] [address] DO Work Phone: History of Present [...] sauerkraut if she is still hungry * -sugar house supervisor also reports that they do have things [...] other weekend. When visiting her mom, the skilled nursing packs her food and medicine for her to bring. Patient reports that her mom has a camera at home so she can monitor how much food Cristina gets when she is at her moms house. Cristina's sugar house supervisor also reported that the fride, freezer and pantry at the skilled nursing is locked and Cristina has no way of getting any outside food. She does currently take a MVI with Iron as well as Vit D and fish oil. Her most recent labs are from 2020. [id number] Work Phone: Hospital Discharge instructions No data available for this section [facility] Progress note No data available for this section [facility] Reason for referral (narrative)* Outpatient Procedure (Urgent) - Closed Specialty Diagnoses / Procedures Referred By Contac t Referred To [facility] Diagnoses Pain of left lower extremity Edema, unspecified type Procedures US LEG VEIN DVT UNL VAS LAB DUP-SCAN XTR VEINS UNILATERAL/LIMITED STUDY Mika Kaplan APRN.CNP [address] [place] [address] [facility] [place] [address] [place] [id number] Referral ID Status Reason Start Date Expiration Date V isits Requested Visits Authorized [id number] Closed Auto-Generate d Referral 11/13/2023 11/12/2024 1 1 [facility] for referral (narrative)* Diagnostic Procedure Only (Routine) - Closed Specialty Diagnoses / Procedures Referred By Contac t Referred To Contact US IMAGING Diagnoses Left groin pain Procedures US HIP LT US COMPL JOINT R-T W/IMAGE DOCUMENTATION Marilee Thakur MD [address] [place] [address] [place] [address] Referral ID Status Reason Start Date Expiration Date V isits Requested Visits Authorized [id number] Closed Auto-Generate d Referral 04/23/2021 05/23/2022 1 1 [facility] for referral (narrative)* Diagnostic Procedure Only (Routine) - Authorized Specialty Diagnoses / Procedures Referred By Contac t Referred To Contact US IMAGING Diagnoses Abdominal mass, unspecified abdominal location Procedures US SOFT TISSUE ABDOMEN US ABDOMINAL REAL TIME W/IMAGE LIMITED Mika Kaplan APRN.CNP [address] [place] [address] [place] [address] Referral ID Status Reason Start Date Expiration Date Visits Requested Visits Authorized [id number] Authorized Auto-Generat ed Referral 04/01/2024 05/01/2025 1 1 [facility] for referral (narrative)No reason for [facility]: Reason for visit Narrative* Diagnostic Procedure Only (Routine) - Closed Specialty Diagnoses / Procedures Referred By Hannah grimm Referred To Contact US IMAGING Diagnoses Left groin pain Procedures US HIP LT US COMPL JOINT R-T W/IMAGE DOCUMENTATION Marilee Thakur MD [address] [place] [address] [place] [address] Referral ID Status Reason Start Date Expiration Date V isits Requested Visits Authorized [id number] Closed Auto-Generate d Referral 04/23/2021 05/23/2022 1 1 [facility] for visit Narrative* Consultation (Routine) - Authorized Specialty Diagnoses / Procedures Referred By Hannah grimm Referred To Contact Cardiology Diagnoses [place] [address] [address] [facility] [place] [address] Phone: tel: fax: Referral ID Status Reason Start Date Expiration Date Visits Requested Visits Authorized [id number] Authorized Specialty Services Required 12/04/2023 12/03/2024 1 1 [facility] Work Phone: Reybnj for visit Narrative* CV Imaging (Routine) - Authorized Specialty Diagnoses / Procedures Referred By Hannah grimm Referred To Contact Cardiology Diagnoses Dyspnea on exertion Bilateral lower extremity edema Procedures Transthoracic Echo Complete IN ECHO TTHRC R-T 2D W/WOM-MODE COMPL SPEC&COLR D Isi Goodman [facility] [address] [facility] [address] [place] [address] Phone: tel: fax: Referral ID Status Reason Start Date Expiration Date Visits Requested Visits Authorized [id number] Authorized Perform Procedure 4 01/19/2025 1 1 [facility] Work Phone: reason for visit Narrative* Consultation (Routine) - Authorized Specialty Diagnoses / Procedures Referred By Hannah grimm Referred To Contact Cardiology Diagnoses Dyspnea on exertion Morbid obesity (Multi) Prader-Willi syndrome (HHS-HCC) Shortness of breath Bilateral lower extremity edema Procedures Follow Up In Cardiology Isi Goodman MD [address] [address] Phone: tel: fax: Referral ID Status Reason Start Date Expiration Date V isits Requested Visits Authorized [id number] Authorized 01/20/2024 01/19/2025 1 1 [facility] Work Phone: Summary Purpose Family History [...] Recorded Date/T deni grandmother Diabetes mellitus Unknown Cardiac disease Unknown Hypertension Unknown mother Diabetes mellitus Unknown grandfather Hypertension Unknown Advance Directives No Advanced Directives Records Found Advance Directive Response Recorded Date/ Time Advance Directives No September 30 3:05pm Living Will No May 10, 2019 8:38pm Power of Silk Screener No May 09 8:38pm Advance Directive Response Recorded Date/ Time Living Will No April 29 4:12am Do you have a Healthcare Power of Silk Screener? No April 29, 2024 4:12am Advance Directives No September 30 3:05pm Chief Complaint Patient is here for a follow up visit for prader willi syndrome* Follow up * Accompanied by health care assistant. Reason for Referral Specialty Diagnoses / Procedures Referred By Hannah t Referred To Contact [facility] Diagnoses Physical therapy evaluation, initial Procedures CONSULT TO PHYSICAL THERAPY PHYSICAL THERAPY EVALUATION HIGH COMPLEX 45 MINS Marilee Thakur MD [address] [place] [address] [address] Referral ID Status Reason Start Date Expiration Date Visits Requested Visits Authorized [id number] Authorized PCP Requested Referral Auto-Generate d Referral 06/28/2021 06/28/2022 99 99 Specialty Diagnoses / Procedures Referred By Hannah t Referred To Contact [facility] [place] Diagnoses Prader-Willi syndrome SOB (shortness of breath) Procedures ECHO ECHO TTHRC R-T 2D W/WOM-MODE COMPL SPEC&[place] [address] [place] [address] [facility] [address] [address] Referral ID Status Reason Start Date Expiration Date Visits Requested Visits Authorized [id number] Authorized Auto-Generat ed Referral 06/28/2021 06/28/2022 1 1 Specialty Diagnoses / Procedures Referred By Hannah t Referred To Contact [facility] Diagnoses Lymphedema Procedures CONSULT TO LYMPHEDEMA THERAPY OFFICE/OUTPATIENT [facility] MDM 60 MINUTES Marilee Thakur MD [address] [place] [address] [facility] [address] [address] Referral ID Status Reason Start Date Expiration Date Visits Requested Visits Authorized [id number] Authorized Auto-Generat ed Referral 11/18/2023 11/17/2024 99 99 Specialty Diagnoses / Procedures Referred By Hannah t Referred To Contact Vascular Surgery Diagnoses Lymphedema Prader-Willi syndrome Procedures CONSULT TO VASCULAR SURGERY OFFICE/OUTPATIENT [facility] MDM 60 MINUTES Marilee Thakur MD [address] [place] [address] Referral ID Status Reason Start Date Expiration Date Visits Requested Visits Authorized [id number] Authorized PCP Requested Referral 02/16/2024 02/15/2025 1 1 Specialty Diagnoses / Procedures Referred By Contac t Referred To Contact Vascular Medicine Diagnoses Lymphedema Prader-Willi syndrome Procedures CONSULT TO VASCULAR MEDICINE OFFICE/OUTPATIENT [facility] 60 MINUTES Marilee Thakur MD [address] [place] [address] Referral ID Status Reason Start Date Expiration Date Visits Requested Visits Authorized [id number] Authorized PCP Requested Referral 02/16/2024 02/15/2025 1 1 Specialty Diagnoses / Procedures Referred By Contac t Referred To Contact Diagnoses Allergic to bees Bee allergy status Rajesh Corona MD [address] [place] [address] Referral ID Status Reason Start Date Expiration Date V isits Requested Visits Authorized [id number] Pending Review 1 1 Specialty Diagnoses / Procedures Referred By Contac t Referred To Contact Diagnoses Mild intermittent asthma without complication Marilee Thakur MD [address] [place] [address] Referral ID Status Reason Start Date Expiration Date V isits Requested Visits Authorized [id number] Authorized 04/12/2024 04/11/2025 1 1 Chief Complaint and Reason for Visit Chief Complaint 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 Reason for Visit Menorrhagia with reg ular cycle Encounter for routine gynecological examination Chief Complaint Admit Date HF EXAC April 28, 2024 10:26pm CONGESTIVE HEART FAILURE, HYPOXIA Februa 2024 12:36am HF EXAC April 29, 2024 10:50am HF EXAC April 30, 2024 1:12pm HF EXAC May 01, 2024 12:47pm HF EXAC May 02, 2024 10:39am LABWORK June 18, 2024 5:0 0am LAB WORK June 21, 2024 5:3 0am LABWORK 2024 5:0 0am LAB WORK July 05, 2024 7:2 5am LAB WORK July 12, 2024 5:00am LABWORK July 26, 2024 5:00a m LABWORK August 03, 2024 5:00a m LONGTERM LAB WORK August 09, 2024 4:0 0am Reason for Visit Admit Date Hypoxia April 28, 2024 10:26pm Acute on chronic congestive heart failur e April 28, 2024 10:26pm Additional Source Comments INFORMATION SOURCE (unrecogn ized section and content) DATE CREATED AUTHOR 09/02/2017 [facility] DATE CREATED AUTHOR AUTHOR'S ORGANIZ ATION 02/16/2021 [facility] DATE CREATED AUTHOR AUTHOR'S ORGANIZ ATION 12/12/2022 [facility] DATE CREATED AUTHOR AUTHOR'S ORGANIZ ATION 01/23/2024 [facility] DATE CREATED AUTHOR AUTHOR'S ORGANIZ ATION 05/08/2024 [facility] DATE CREATED AUTHOR AUTHOR'S ORGANIZ ATION 06/01/2024 [facility] DATE CREATED AUTHOR AUTHOR'S ORGANIZ ATION 09/02/2024 [facility] DATE CREATED AUTHOR AUTHOR'S ORGANIZ ATION 09/03/2024 [facility] DATE CREATED AUTHOR AUTHOR'S ORGANIZ ATION 09/29/2024 [facility] DATE CREATED AUTHOR AUTHOR'S ORGANIZ ATION 09/30/2024 [facility] DATE CREATED AUTHOR AUTHOR'S ORGANIZ ATION 10/06/2024 [facility] DATE CREATED AUTHOR AUTHOR'S ORGANIZ ATION 10/08/2024 [facility] Reason for Visit (unrecogniz ed section and content) Reason Comments Results Reason Comments Forms Reason Comments [facility] verbal order ne eded Reason Comments Recheck [...] Request 11/24/2023 Reason Comments recert patient for long term servi ce Reason Comments weight gain Reason Comments Medication Question Reason Onset Date Comments Transition Of Care 01/06/2024 [facility] Discharge 01/01/25 Reason Comments Patient Update weight increasing Reason Comments Hospital F/U And ER visit on 12/10 04/02 Reason Comments weight increase Reason Onset Date Comments Transition Of Care 01/22/2024 [facility] Follow-up Day 20 Reason Comments Request for referral to PT/OT Reason Onset Date Comments Refill Request 02/02/2024 Reason Comments Home Health Orders Reason Comments Hospital F/U [facility] 01/26/24 dx CHF Reason Comments [facility]-verbal orders Reason Comments Recheck Medication Reason Comments [facility], verbal order Reason Comments Order Request Reason Comments Hospital F/U [facility] 02/28/24 for pul monary edema and severe [...] Specialty Diagnoses / Procedures Referred By Hannah t Referred To Contact Vascular Surgery Diagnoses Lymphedema Prader-Willi syndrome Procedures CONSULT TO VASCULAR SURGERY OFFICE/OUTPATIENT NEW HIGH MDM 60 MINUTES Marilee Thakur MD [address] [place] [address] Referral ID Status Reason Start Date Expiration Date V isits Requested Visits Authorized [id number] Closed PCP Requested Referral 02/16/2024 02/15/2025 1 1 Reason Comments [facility] Reason Comments Medication Problem Reason Comments Radiology US Specialty Diagnoses / Procedures Referred By Hannah grimm Referred To Contact US IMAGING Diagnoses Abdominal mass, unspecified abdominal location Procedures US SOFT TISSUE ABDOMEN US ABDOMINAL REAL TIME W/IMAGE LIMITED Mika Kaplan APRN.BULB INSPECTOR [address] [place] [address] [place] [address] Referral ID Status Reason Start Date Expiration Date V isits Requested Visits Authorized [id number] Closed Auto-Generate d Referral 04/01/2024 05/01/2025 1 1 Reason Comments New Patient Visit Specialty Diagnoses / Procedures Referred By Hannah grimm Referred To Contact Endocrinology Diagnoses Prader-Willi syndrome (HHS-HCC) [place] [address] [address] [facility] [place] [address] Phone: tel: fax: Referral ID Status Reason Start Date Expiration Date Visits Requested Visits Authorized [id number] Authorized Specialty Services Required 12/04/2023 12/03/2024 1 1 Reason Comments requesting verbal order Reason Comments Recheck ER follow up, cellul itis Reason Onset Date Comments Refill Request 05/20/2024 Reason Comments Home Health Recertification Reason Onset Date Comments Results 04/21/2024 Reason Onset Date Comments Population Health Navigation Outreach 07/06/2024 [facility] Reason Comments home health calling Reason Onset Date Comments Refill Request 09/07/2024 Reason Comments Hospital F/U D/C [facility] 09/06/24 Reason Comments physcial therapy plan of care Reason Comments Medication Request Reason Comments Established Patient Reason Onset Date Comments Refill Request 10/04/2024 Source Comments (unrecognize d section and content) In the event this informatio n is protected by the Federal Confidentiality of Alcohol and Drug Abuse Patient Records regulations: The Federal rules restrict any use of the information to criminally investigate or prosecute any alcohol or drug abuse patient.[facility] the event this information is protected by the Federal Confidentiality of Alcohol and Drug Abuse Patient Records regulations: The Federal rules restrict any use of the information to criminally investigate or prosecute any alcohol or drug abuse patient.[facility] HospitalIn the event this information is protected by the Federal Confidentiality of Alcohol and Drug Abuse Patient Records regulations: The Federal rules restrict any use of the information to criminally investigate or prosecute any alcohol or drug abuse patient.[facility] HospitalIn the event this information is protected by the Federal Confidentiality of Alcohol and Drug Abuse Patient Records regulations: The Federal rules restrict any use of the information to criminally investigate or prosecute any alcohol or drug abuse patient.[facility] HospitalIn the event this information is protected by the Federal Confidentiality of Alcohol and Drug Abuse Patient Records regulations: The Federal rules restrict any use of the information to criminally investigate or prosecute any alcohol or drug abuse patient.[facility] HospitalIn the event this information is protected by the Federal Confidentiality of Alcohol and Drug Abuse Patient Records regulations: The Federal rules restrict any use of the information to criminally investigate or prosecute any alcohol or drug abuse patient.[facility] HospitalIn the event this information is protected by the Federal Confidentiality of Alcohol and Drug Abuse Patient Records regulations: The Federal rules restrict any use of the information to criminally investigate or prosecute any alcohol or drug abuse patient.[facility] HospitalIn the event this information is protected by the Federal Confidentiality of Alcohol and Drug Abuse Patient Records regulations: The Federal rules restrict any use of the information to criminally investigate or prosecute any alcohol or drug abuse patient.[facility] HospitalIn the event this information is protected by the Federal Confidentiality of Alcohol and Drug Abuse Patient Records regulations: The Federal rules restrict any use of the information to criminally investigate or prosecute any alcohol or drug abuse patient.[facility] HospitalIn the event this information is protected by the Federal Confidentiality of Alcohol and Drug Abuse Patient Records regulations: The Federal rules restrict any use of the information to criminally investigate or prosecute any alcohol or drug abuse patient.[facility] HospitalIn the event this information is protected by the Federal Confidentiality of Alcohol and Drug Abuse Patient Records regulations: The Federal rules restrict any use of the information to criminally investigate or prosecute any alcohol or drug abuse patient.[facility] HospitalIn the event this information is protected by the Federal Confidentiality of Alcohol and Drug Abuse Patient Records regulations: The Federal rules restrict any use of the information to criminally investigate or prosecute any alcohol or drug abuse patient.[facility] HospitalIn the event this information is protected by the Federal Confidentiality of Alcohol and Drug Abuse Patient Records regulations: The Federal rules restrict any use of the information to criminally investigate or prosecute any alcohol or drug abuse patient.[facility] HospitalIn the event this information is protected by the Federal Confidentiality of Alcohol and Drug Abuse Patient Records regulations: The Federal rules restrict any use of the information to criminally investigate or prosecute any alcohol or drug abuse patient.[facility] HospitalIn the event this information is protected by the Federal Confidentiality of Alcohol and Drug Abuse Patient Records regulations: The Federal rules restrict any use of the information to criminally investigate or prosecute any alcohol or drug abuse patient.[facility] HospitalIn the event this information is protected by the Federal Confidentiality of Alcohol and Drug Abuse Patient Records regulations: The Federal rules restrict any use of the information to criminally investigate or prosecute any alcohol or drug abuse patient.[facility] HospitalIn the event this information is protected by the Federal Confidentiality of Alcohol and Drug Abuse Patient Records regulations: The Federal rules restrict any use of the information to criminally investigate or prosecute any alcohol or drug abuse patient.[facility] HospitalIn the event this information is protected by the Federal Confidentiality of Alcohol and Drug Abuse Patient Records regulations: The Federal rules restrict any use of the information to criminally investigate or prosecute any alcohol or drug abuse patient.[facility] HospitalIn the event this information is protected by the Federal Confidentiality of Alcohol and Drug Abuse Patient Records regulations: The Federal rules restrict any use of the information to criminally investigate or prosecute any alcohol or drug abuse patient.[facility] HospitalIn the event this information is protected by the Federal Confidentiality of Alcohol and Drug Abuse Patient Records regulations: The Federal rules restrict any use of the information to criminally investigate or prosecute any alcohol or drug abuse patient.[facility] HospitalIn the event this information is protected by the Federal Confidentiality of Alcohol and Drug Abuse Patient Records regulations: The Federal rules restrict any use of the information to criminally investigate or prosecute any alcohol or drug abuse patient.[facility] HospitalIn the event this information is protected by the Federal Confidentiality of Alcohol and Drug Abuse Patient Records regulations: The Federal rules restrict any use of the information to criminally investigate or prosecute any alcohol or drug abuse patient.[facility] HospitalIn the event this information is protected by the Federal Confidentiality of Alcohol and Drug Abuse Patient Records regulations: The Federal rules restrict any use of the information to criminally investigate or prosecute any alcohol or drug abuse patient.[facility] HospitalIn the event this information is protected by the Federal Confidentiality of Alcohol and Drug Abuse Patient Records regulations: The Federal rules restrict any use of the information to criminally investigate or prosecute any alcohol or drug abuse patient.[facility] HospitalIn the event this information is protected by the Federal Confidentiality of Alcohol and Drug Abuse Patient Records regulations: The Federal rules restrict any use of the information to criminally investigate or prosecute any alcohol or drug abuse patient.[facility] HospitalIn the event this information is protected by the Federal Confidentiality of Alcohol and Drug Abuse Patient Records regulations: The Federal rules restrict any use of the information to criminally investigate or prosecute any alcohol or drug abuse patient.[facility] HospitalIn the event this information is protected by the Federal Confidentiality of Alcohol and Drug Abuse Patient Records regulations: The Federal rules restrict any use of the information to criminally investigate or prosecute any alcohol or drug abuse patient.[facility] HospitalIn the event this information is protected by the Federal Confidentiality of Alcohol and Drug Abuse Patient Records regulations: The Federal rules restrict any use of the information to criminally investigate or prosecute any alcohol or drug abuse patient.[facility] HospitalIn the event this information is protected by the Federal Confidentiality of Alcohol and Drug Abuse Patient Records regulations: The Federal rules restrict any use of the information to criminally investigate or prosecute any alcohol or drug abuse patient.[facility] HospitalIn the event this information is protected by the Federal Confidentiality of Alcohol and Drug Abuse Patient Records regulations: The Federal rules restrict any use of the information to criminally investigate or prosecute any alcohol or drug abuse patient.[facility] HospitalIn the event this information is protected by the Federal Confidentiality of Alcohol and Drug Abuse Patient Records regulations: The Federal rules restrict any use of the information to criminally investigate or prosecute any alcohol or drug abuse patient.[facility] HospitalIn the event this information is protected by the Federal Confidentiality of Alcohol and Drug Abuse Patient Records regulations: The Federal rules restrict any use of the information to criminally investigate or prosecute any alcohol or drug abuse patient.[facility] HospitalIn the event this information is protected by the Federal Confidentiality of Alcohol and Drug Abuse Patient Records regulations: The Federal rules restrict any use of the information to criminally investigate or prosecute any alcohol or drug abuse patient.[facility] HospitalIn the event this information is protected by the Federal Confidentiality of Alcohol and Drug Abuse Patient Records regulations: The Federal rules restrict any use of the information to criminally investigate or prosecute any alcohol or drug abuse patient.[facility] HospitalIn the event this information is protected by the Federal Confidentiality of Alcohol and Drug Abuse Patient Records regulations: The Federal rules restrict any use of the information to criminally investigate or prosecute any alcohol or drug abuse patient.[facility] HospitalIn the event this information is protected by the Federal Confidentiality of Alcohol and Drug Abuse Patient Records regulations: The Federal rules restrict any use of the information to criminally investigate or prosecute any alcohol or drug abuse patient.[facility] HospitalIn the event this information is protected by the Federal Confidentiality of Alcohol and Drug Abuse Patient Records regulations: The Federal rules restrict any use of the information to criminally investigate or prosecute any alcohol or drug abuse patient.[facility] HospitalIn the event this information is protected by the Federal Confidentiality of Alcohol and Drug Abuse Patient Records regulations: The Federal rules restrict any use of the information to criminally investigate or prosecute any alcohol or drug abuse patient.[facility] HospitalIn the event this information is protected by the Federal Confidentiality of Alcohol and Drug Abuse Patient Records regulations: The Federal rules restrict any use of the information to criminally investigate or prosecute any alcohol or drug abuse patient.[facility] HospitalIn the event this information is protected by the Federal Confidentiality of Alcohol and Drug Abuse Patient Records regulations: The Federal rules restrict any use of the information to criminally investigate or prosecute any alcohol or drug abuse patient.[facility] HospitalIn the event this information is protected by the Federal Confidentiality of Alcohol and Drug Abuse Patient Records regulations: The Federal rules restrict any use of the information to criminally investigate or prosecute any alcohol or drug abuse patient.[facility] HospitalIn the event this information is protected by the Federal Confidentiality of Alcohol and Drug Abuse Patient Records regulations: The Federal rules restrict any use of the information to criminally investigate or prosecute any alcohol or drug abuse patient.[facility] HospitalIn the event this information is protected by the Federal Confidentiality of Alcohol and Drug Abuse Patient Records regulations: The Federal rules restrict any use of the information to criminally investigate or prosecute any alcohol or drug abuse patient.[facility] HospitalIn the event this information is protected by the Federal Confidentiality of Alcohol and Drug Abuse Patient Records regulations: The Federal rules restrict any use of the information to criminally investigate or prosecute any alcohol or drug abuse patient.[facility] HospitalIn the event this information is protected by the Federal Confidentiality of Alcohol and Drug Abuse Patient Records regulations: The Federal rules restrict any use of the information to criminally investigate or prosecute any alcohol or drug abuse patient.[facility] HospitalIn the event this information is protected by the Federal Confidentiality of Alcohol and Drug Abuse Patient Records regulations: The Federal rules restrict any use of the information to criminally investigate or prosecute any alcohol or drug abuse patient.[facility] HospitalIn the event this information is protected by the Federal Confidentiality of Alcohol and Drug Abuse Patient Records regulations: The Federal rules restrict any use of the information to criminally investigate or prosecute any alcohol or drug abuse patient.[facility] HospitalIn the event this information is protected by the Federal Confidentiality of Alcohol and Drug Abuse Patient Records regulations: The Federal rules restrict any use of the information to criminally investigate or prosecute any alcohol or drug abuse patient.[facility] HospitalIn the event this information is protected by the Federal Confidentiality of Alcohol and Drug Abuse Patient Records regulations: The Federal rules restrict any use of the information to criminally investigate or prosecute any alcohol or drug abuse patient.[facility] HospitalIn the event this information is protected by the Federal Confidentiality of Alcohol and Drug Abuse Patient Records regulations: The Federal rules restrict any use of the information to criminally investigate or prosecute any alcohol or drug abuse patient.[facility] HospitalIn the event this information is protected by the Federal Confidentiality of Alcohol and Drug Abuse Patient Records regulations: The Federal rules restrict any use of the information to criminally investigate or prosecute any alcohol or drug abuse patient.[facility] HospitalIn the event this information is protected by the Federal Confidentiality of Alcohol and Drug Abuse Patient Records regulations: The Federal rules restrict any use of the information to criminally investigate or prosecute any alcohol or drug abuse patient.[facility] HospitalIn the event this information is protected by the Federal Confidentiality of Alcohol and Drug Abuse Patient Records regulations: The Federal rules restrict any use of the information to criminally investigate or prosecute any alcohol or drug abuse patient.[facility] HospitalIn the event this information is protected by the Federal Confidentiality of Alcohol and Drug Abuse Patient Records regulations: The Federal rules restrict any use of the information to criminally investigate or prosecute any alcohol or drug abuse patient.[facility] HospitalIn the event this information is protected by the Federal Confidentiality of Alcohol and Drug Abuse Patient Records regulations: The Federal rules restrict any use of the information to criminally investigate or prosecute any alcohol or drug abuse patient.[facility] HospitalIn the event this information is protected by the Federal Confidentiality of Alcohol and Drug Abuse Patient Records regulations: The Federal rules restrict any use of the information to criminally investigate or prosecute any alcohol or drug abuse patient.[facility] HospitalIn the event this information is protected by the Federal Confidentiality of Alcohol and Drug Abuse Patient Records regulations: The Federal rules restrict any use of the information to criminally investigate or prosecute any alcohol or drug abuse patient.[facility] HospitalIn the event this information is protected by the Federal Confidentiality of Alcohol and Drug Abuse Patient Records regulations: The Federal rules restrict any use of the information to criminally investigate or prosecute any alcohol or drug abuse patient.[facility] HospitalIn the event this information is protected by the Federal Confidentiality of Alcohol and Drug Abuse Patient Records regulations: The Federal rules restrict any use of the information to criminally investigate or prosecute any alcohol or drug abuse patient.[facility] HospitalIn the event this information is protected by the Federal Confidentiality of Alcohol and Drug Abuse Patient Records regulations: The Federal rules restrict any use of the information to criminally investigate or prosecute any alcohol or drug abuse patient.[facility] HospitalIn the event this information is protected by the Federal Confidentiality of Alcohol and Drug Abuse Patient Records regulations: The Federal rules restrict any use of the information to criminally investigate or prosecute any alcohol or drug abuse patient.[facility] HospitalIn the event this information is protected by the Federal Confidentiality of Alcohol and Drug Abuse Patient Records regulations: The Federal rules restrict any use of the information to criminally investigate or prosecute any alcohol or drug abuse patient.[facility] HospitalIn the event this information is protected by the Federal Confidentiality of Alcohol and Drug Abuse Patient Records regulations: The Federal rules restrict any use of the information to criminally investigate or prosecute any alcohol or drug abuse patient.[facility] HospitalIn the event this information is protected by the Federal Confidentiality of Alcohol and Drug Abuse Patient Records regulations: The Federal rules restrict any use of the information to criminally investigate or prosecute any alcohol or drug abuse patient.[facility] HospitalIn the event this information is protected by the Federal Confidentiality of Alcohol and Drug Abuse Patient Records regulations: The Federal rules restrict any use of the information to criminally investigate or prosecute any alcohol or drug abuse patient.[facility] HospitalIn the event this information is protected by the Federal Confidentiality of Alcohol and Drug Abuse Patient Records regulations: The Federal rules restrict any use of the information to criminally investigate or prosecute any alcohol or drug abuse patient.[facility] HospitalIn the event this information is protected by the Federal Confidentiality of Alcohol and Drug Abuse Patient Records regulations: The Federal rules restrict any use of the information to criminally investigate or prosecute any alcohol or drug abuse patient.[facility] HospitalIn the event this information is protected by the Federal Confidentiality of Alcohol and Drug Abuse Patient Records regulations: The Federal rules restrict any use of the information to criminally investigate or prosecute any alcohol or drug abuse patient.[facility] HospitalIn the event this information is protected by the Federal Confidentiality of Alcohol and Drug Abuse Patient Records regulations: The Federal rules restrict any use of the information to criminally investigate or prosecute any alcohol or drug abuse patient.[facility] HospitalIn the event this information is protected by the Federal Confidentiality of Alcohol and Drug Abuse Patient Records regulations: The Federal rules restrict any use of the information to criminally investigate or prosecute any alcohol or drug abuse patient.[facility] HospitalIn the event this information is protected by the Federal Confidentiality of Alcohol and Drug Abuse Patient Records regulations: The Federal rules restrict any use of the information to criminally investigate or prosecute any alcohol or drug abuse patient.[facility] HospitalIn the event this information is protected by the Federal Confidentiality of Alcohol and Drug Abuse Patient Records regulations: The Federal rules restrict any use of the information to criminally investigate or prosecute any alcohol or drug abuse patient.[facility] HospitalIn the event this information is protected by the Federal Confidentiality of Alcohol and Drug Abuse Patient Records regulations: The Federal rules restrict any use of the information to criminally investigate or prosecute any alcohol or drug abuse patient.[facility] HospitalIn the event this information is protected by the Federal Confidentiality of Alcohol and Drug Abuse Patient Records regulations: The Federal rules restrict any use of the information to criminally investigate or prosecute any alcohol or drug abuse patient.[facility] HospitalIn the event this information is protected by the Federal Confidentiality of Alcohol and Drug Abuse Patient Records regulations: The Federal rules restrict any use of the information to criminally investigate or prosecute any alcohol or drug abuse patient.[facility] HospitalIn the event this information is protected by the Federal Confidentiality of Alcohol and Drug Abuse Patient Records regulations: The Federal rules restrict any use of the information to criminally investigate or prosecute any alcohol or drug abuse patient.[facility] HospitalIn the event this information is protected by the Federal Confidentiality of Alcohol and Drug Abuse Patient Records regulations: The Federal rules restrict any use of the information to criminally investigate or prosecute any alcohol or drug abuse patient.[facility] HospitalIn the event this information is protected by the Federal Confidentiality of Alcohol and Drug Abuse Patient Records regulations: The Federal rules restrict any use of the information to criminally investigate or prosecute any alcohol or drug abuse patient.[facility] HospitalIn the event this information is protected by the Federal Confidentiality of Alcohol and Drug Abuse Patient Records regulations: The Federal rules restrict any use of the information to criminally investigate or prosecute any alcohol or drug abuse patient.[facility] HospitalIn the event this information is protected by the Federal Confidentiality of Alcohol and Drug Abuse Patient Records regulations: The Federal rules restrict any use of the information to criminally investigate or prosecute any alcohol or drug abuse patient.[facility] HospitalIn the event this information is protected by the Federal Confidentiality of Alcohol and Drug Abuse Patient Records regulations: The Federal rules restrict any use of the information to criminally investigate or prosecute any alcohol or drug abuse patient.[facility] HospitalIn the event this information is protected by the Federal Confidentiality of Alcohol and Drug Abuse Patient Records regulations: The Federal rules restrict any use of the information to criminally investigate or prosecute any alcohol or drug abuse patient.[facility] HospitalIn the event this information is protected by the Federal Confidentiality of Alcohol and Drug Abuse Patient Records regulations: The Federal rules restrict any use of the information to criminally investigate or prosecute any alcohol or drug abuse patient.[facility] HospitalIn the event this information is protected by the Federal Confidentiality of Alcohol and Drug Abuse Patient Records regulations: The Federal rules restrict any use of the information to criminally investigate or prosecute any alcohol or drug abuse patient.[facility] HospitalIn the event this information is protected by the Federal Confidentiality of Alcohol and Drug Abuse Patient Records regulations: The Federal rules restrict any use of the information to criminally investigate or prosecute any alcohol or drug abuse patient.[facility] HospitalIn the event this information is protected by the Federal Confidentiality of Alcohol and Drug Abuse Patient Records regulations: The Federal rules restrict any use of the information to criminally investigate or prosecute any alcohol or drug abuse patient.[facility] HospitalIn the event this information is protected by the Federal Confidentiality of Alcohol and Drug Abuse Patient Records regulations: The Federal rules restrict any use of the information to criminally investigate or prosecute any alcohol or drug abuse patient.[facility] HospitalIn the event this information is protected by the Federal Confidentiality of Alcohol and Drug Abuse Patient Records regulations: The Federal rules restrict any use of the information to criminally investigate or prosecute any alcohol or drug abuse patient.[facility] HospitalIn the event this information is protected by the Federal Confidentiality of Alcohol and Drug Abuse Patient Records regulations: The Federal rules restrict any use of the information to criminally investigate or prosecute any alcohol or drug abuse patient.[facility] HospitalIn the event this information is protected by the Federal Confidentiality of Alcohol and Drug Abuse Patient Records regulations: The Federal rules restrict any use of the information to criminally investigate or prosecute any alcohol or drug abuse patient.[facility] HospitalIn the event this information is protected by the Federal Confidentiality of Alcohol and Drug Abuse Patient Records regulations: The Federal rules restrict any use of the information to criminally investigate or prosecute any alcohol or drug abuse patient.[facility] HospitalIn the event this information is protected by the Federal Confidentiality of Alcohol and Drug Abuse Patient Records regulations: The Federal rules restrict any use of the information to criminally investigate or prosecute any alcohol or drug abuse patient.[facility] HospitalIn the event this information is protected by the Federal Confidentiality of Alcohol and Drug Abuse Patient Records regulations: The Federal rules restrict any use of the information to criminally investigate or prosecute any alcohol or drug abuse patient.[facility] HospitalIn the event this information is protected by the Federal Confidentiality of Alcohol and Drug Abuse Patient Records regulations: The Federal rules restrict any use of the information to criminally investigate or prosecute any alcohol or drug abuse patient.[facility] HospitalIn the event this information is protected by the Federal Confidentiality of Alcohol and Drug Abuse Patient Records regulations: The Federal rules restrict any use of the information to criminally investigate or prosecute any alcohol or drug abuse patient.[facility] HospitalIn the event this information is protected by the Federal Confidentiality of Alcohol and Drug Abuse Patient Records regulations: The Federal rules restrict any use of the information to criminally investigate or prosecute any alcohol or drug abuse patient.[facility] HospitalIn the event this information is protected by the Federal Confidentiality of Alcohol and Drug Abuse Patient Records regulations: The Federal rules restrict any use of the information to criminally investigate or prosecute any alcohol or drug abuse patient.[facility] HospitalIn the event this information is protected by the Federal Confidentiality of Alcohol and Drug Abuse Patient Records regulations: The Federal rules restrict any use of the information to criminally investigate or prosecute any alcohol or drug abuse patient.[facility] HospitalIn the event this information is protected by the Federal Confidentiality of Alcohol and Drug Abuse Patient Records regulations: The Federal rules restrict any use of the information to criminally investigate or prosecute any alcohol or drug abuse patient.[facility] HospitalIn the event this information is protected by the Federal Confidentiality of Alcohol and Drug Abuse Patient Records regulations: The Federal rules restrict any use of the information to criminally investigate or prosecute any alcohol or drug abuse patient.[facility] HospitalIn the event this information is protected by the Federal Confidentiality of Alcohol and Drug Abuse Patient Records regulations: The Federal rules restrict any use of the information to criminally investigate or prosecute any alcohol or drug abuse patient.[facility] HospitalIn the event this information is protected by the Federal Confidentiality of Alcohol and Drug Abuse Patient Records regulations: The Federal rules restrict any use of the information to criminally investigate or prosecute any alcohol or drug abuse patient.[facility] HospitalIn the event this information is protected by the Federal Confidentiality of Alcohol and Drug Abuse Patient Records regulations: The Federal rules restrict any use of the information to criminally investigate or prosecute any alcohol or drug abuse patient.[facility] HospitalIn the event this information is protected by the Federal Confidentiality of Alcohol and Drug Abuse Patient Records regulations: The Federal rules restrict any use of the information to criminally investigate or prosecute any alcohol or drug abuse patient.[facility] HospitalIn the event this information is protected by the Federal Confidentiality of Alcohol and Drug Abuse Patient Records regulations: The Federal rules restrict any use of the information to criminally investigate or prosecute any alcohol or drug abuse patient.[facility] HospitalIn the event this information is protected by the Federal Confidentiality of Alcohol and Drug Abuse Patient Records regulations: The Federal rules restrict any use of the information to criminally investigate or prosecute any alcohol or drug abuse patient.[facility] HospitalIn the event this information is protected by the Federal Confidentiality of Alcohol and Drug Abuse Patient Records regulations: The Federal rules restrict any use of the information to criminally investigate or prosecute any alcohol or drug abuse patient.[facility] HospitalIn the event this information is protected by the Federal Confidentiality of Alcohol and Drug Abuse Patient Records regulations: The Federal rules restrict any use of the information to criminally investigate or prosecute any alcohol or drug abuse patient.[facility] HospitalIn the event this information is protected by the Federal Confidentiality of Alcohol and Drug Abuse Patient Records regulations: The Federal rules restrict any use of the information to criminally investigate or prosecute any alcohol or drug abuse patient.[facility] HospitalIn the event this information is protected by the Federal Confidentiality of Alcohol and Drug Abuse Patient Records regulations: The Federal rules restrict any use of the information to criminally investigate or prosecute any alcohol or drug abuse patient.[facility] HospitalIn the event this information is protected by the Federal Confidentiality of Alcohol and Drug Abuse Patient Records regulations: The Federal rules restrict any use of the information to criminally investigate or prosecute any alcohol or drug abuse patient.[facility] HospitalIn the event this information is protected by the Federal Confidentiality of Alcohol and Drug Abuse Patient Records regulations: The Federal rules restrict any use of the information to criminally investigate or prosecute any alcohol or drug abuse patient.[facility] HospitalIn the event this information is protected by the Federal Confidentiality of Alcohol and Drug Abuse Patient Records regulations: The Federal rules restrict any use of the information to criminally investigate or prosecute any alcohol or drug abuse patient.[facility] HospitalIn the event this information is protected by the Federal Confidentiality of Alcohol and Drug Abuse Patient Records regulations: The Federal rules restrict any use of the information to criminally investigate or prosecute any alcohol or drug abuse patient.[facility] HospitalIn the event this information is protected by the Federal Confidentiality of Alcohol and Drug Abuse Patient Records regulations: The Federal rules restrict any use of the information to criminally investigate or prosecute any alcohol or drug abuse patient.[facility] HospitalIn the event this information is protected by the Federal Confidentiality of Alcohol and Drug Abuse Patient Records regulations: The Federal rules restrict any use of the information to criminally investigate or prosecute any alcohol or drug abuse patient.[facility] HospitalIn the event this information is protected by the Federal Confidentiality of Alcohol and Drug Abuse Patient Records regulations: The Federal rules restrict any use of the information to criminally investigate or prosecute any alcohol or drug abuse patient.[facility] Care Teams (unrecognized sec tion and content) Loss Prevention Detective Relationship Specialty Start Date End Date Marilee Thakur MD [id number] [place] [address] PCP - General Internal Medicine 12/13/15 Loss Prevention Detective Relationship Specialty Start Date End Date Marilee Thakur MD [address] [place] [address] PCP - General Internal Medicine 12/13/15 Loss Prevention Detective Relationship Specialty Start Date End Date Marilee Thakur MD [address] [facility] [place] [address] PCP - General Internal Medicine 12/13/15 Loss Prevention Detective Relationship Specialty Start Date End Date Marilee Thakur MD [address] [facility] [place] [address] PCP - General Internal Medicine 12/13/15 Loss Prevention Detective Relationship Specialty Start Date End Date Marilee Thakur MD [address] [facility] [place] [address] PCP - General Internal Medicine 12/13/15 Loss Prevention Detective Relationship Specialty Start Date End Date Marilee Thakur MD [address] [facility] [place] [address] PCP - General Internal Medicine 12/13/15 Loss Prevention Detective Relationship Specialty Start Date End Date Marilee Thakur MD [address] [place] [address] PCP - General Internal Medicine 12/13/15 Loss Prevention Detective Relationship Specialty Start Date End Date Marilee Thakur MD [address] [facility] [place] [address] PCP - General Internal Medicine 12/13/15 Loss Prevention Detective Relationship Specialty Start Date End Date Marilee Thakur MD [address] [facility] [place] [address] PCP - General Internal Medicine 12/13/15 Loss Prevention Detective Relationship Specialty Start Date End Date Marilee Thakur MD [address] [facility] [place] [address] PCP - General Internal Medicine 12/13/15 Loss Prevention Detective Relationship Specialty Start Date End Date Marilee Thakur MD [address] [facility] [place] [address] PCP - General Internal Medicine 12/13/15 Loss Prevention Detective Relationship Specialty Start Date End Date Marilee Thakur MD [address] [facility] [place] [address] PCP - General Internal Medicine 12/13/15 Loss Prevention Detective Relationship Specialty Start Date End Date Marilee Thakur MD [address] [facility] [place] [address] PCP - General Internal Medicine 12/13/15 Loss Prevention Detective Relationship Specialty Start Date End Date Marilee Thakur MD [address] [facility] [place] [address] PCP - General Internal Medicine 12/13/15 Team Status: Active Member Role Status Dates No Primary Care Physician Family Provider Active Dr. Marilee Thakur MD Primary Care Provider Active Team Status: Inactive Member Role Status Dates Dr. Marilee Thakur MD Primary Care Provider, Referring Provider Active Cecilia Fontenot STRINGED INSTRUMENT REPAIRER, STRINGED INSTRUMENT REPAIRER-C Attending Provider Active Team Status: Inactive Member Role Status Dates Dr. Marilee Thakur MD Primary Care Provider Active Cecilia Fontenot STRINGED INSTRUMENT REPAIRER, STRINGED INSTRUMENT REPAIRER-C Attending Provider, Referring Provider Active Loss Prevention Detective Relationship Specialty Start Date End Date Marilee Thakur MD [address] [facility] [place] [address] PCP - General Internal Medicine 12/13/15 Loss Prevention Detective Relationship Specialty Start Date End Date Marilee Thakur MD [address] [facility] [place] [address] PCP - General Internal Medicine 12/13/15 Loss Prevention Detective Relationship Specialty Start Date End Date Marilee Thakur MD [address] [facility] [place] [address] PCP - General Internal Medicine 12/13/15 Loss Prevention Detective Relationship Specialty Start Date End Date Marilee Thakur MD [address] [facility] [place] [address] PCP - General Internal Medicine 12/13/15 Loss Prevention Detective Relationship Specialty Start Date End Date Marilee Thakur MD [address] [facility] [place] [address] PCP - General Internal Medicine 12/13/15 Loss Prevention Detective Relationship Specialty Start Date End Date Marilee Thakur MD [address] [facility] [place] [address] PCP - General Internal Medicine 12/13/15 Loss Prevention Detective Relationship Specialty Start Date End Date Marilee Thakur MD [address] [facility] [place] [address] PCP - General Internal Medicine 12/13/15 Loss Prevention Detective Relationship Specialty Start Date End Date Marilee Thakur MD [address] [facility] [place] [address] PCP - General Internal Medicine 12/13/15 Loss Prevention Detective Relationship Specialty Start Date End Date Marilee Thakur MD [address] [facility] [place] [address] PCP - General Internal Medicine 12/13/15 Loss Prevention Detective Relationship Specialty Start Date End Date Marilee Thakur MD [address] [facility] [place] [address] PCP - General Internal Medicine 12/13/15 Loss Prevention Detective Relationship Specialty Start Date End Date Marilee Thakur MD [address] [facility] [place] [address] PCP - General Internal Medicine 12/13/15 Loss Prevention Detective Relationship Specialty Start Date End Date Marilee Thakur MD [address] [facility] [place] [address] PCP - General Internal Medicine 12/13/15 Loss Prevention Detective Relationship Specialty Start Date End Date Marilee Thakur MD [address] [facility] [place] [address] PCP - General Internal Medicine 12/13/15 Loss Prevention Detective Relationship Specialty Start Date End Date Marilee Thakur MD [address] [facility] [place] [address] PCP - General Internal Medicine 12/13/15 Loss Prevention Detective Relationship Specialty Start Date End Date Marilee Thakur MD [address] [facility] [place] [address] PCP - General Internal Medicine 12/13/15 Loss Prevention Detective Relationship Specialty Start Date End Date Marilee Thakur MD [address] [place] [address] PCP - General Internal Medicine 12/13/15 Loss Prevention Detective Relationship Specialty Start Date End Date Marilee Thakur MD [address] [place] [address] PCP - General Internal Medicine 12/13/15 Loss Prevention Detective Relationship Specialty Start Date End Date Marilee Thakur MD [address] [place] [address] PCP - General Internal Medicine 12/13/15 Loss Prevention Detective Relationship Specialty Start Date End Date Marilee Thakur MD [address] [place] [address] PCP - General Internal Medicine 12/13/15 Loss Prevention Detective Relationship Specialty Start Date End Date Marilee Thakur MD [address] [place] [address] PCP - General Internal Medicine 12/13/15 Loss Prevention Detective Relationship Specialty Start Date End Date Marilee Thakur MD [address] [place] [address] PCP - General Internal Medicine 12/13/15 Loss Prevention Detective Relationship Specialty Start Date End Date Marilee Thakur MD [address] [place] [address] PCP - General Internal Medicine 12/13/15 Martell Garland, RODRÍGUEZ [address] [place] [address] Primary Care Metal Flow Coordinator 01/05/24 Loss Prevention Detective Relationship Specialty Start Date End Date Marilee Thakur MD [address] [place] [address] PCP - General Internal Medicine 12/13/15 Martell Garland, RN [address] [facility] [place] [address] Primary Care Metal Flow Coordinator 01/05/24 Loss Prevention Detective Relationship Specialty Start Date End Date Marilee Thakur MD [address] [place] [address] PCP - General Internal Medicine 12/13/15 Martell Garland, RN [address] [facility] [place] [address] Primary Care Metal Flow Coordinator 01/05/24 Loss Prevention Detective Relationship Specialty Start Date End Date Marilee Thakur MD [address] [place] [address] PCP - General Internal Medicine 12/13/15 Martell Garland, RN [address] [facility] [place] [address] Primary Care Metal Flow Coordinator 01/05/24 Loss Prevention Detective Relationship Specialty Start Date End Date Marilee Thakur MD [address] [place] [address] PCP - General 09/04/17 Isi Goodman MD [facility] [address] [address] Consulting Physician Cardiology 01/20/24 Loss Prevention Detective Relationship Specialty Start Date End Date Marilee Thakur MD [address] [place] [address] PCP - General Internal Medicine 12/13/15 Martell Garland, RN [address] [place] [address] Primary Care Metal Flow Coordinator 01/05/24 Loss Prevention Detective Relationship Specialty Start Date End Date Marilee Thakur MD [address] [place], [place] 0[address]959 [phone] PCP - General Internal Medicine 12/13/15 Martell Garland, RN [address] [place] [address] Primary Care Metal Flow Coordinator 01/05/24 Loss Prevention Detective Relationship Specialty Start Date End Date Marilee Thakur MD [address] [place] [address] PCP - General Internal Medicine 12/13/15 Martell Garland, RN [address] [place], [place] [id number] Primary Care Metal Flow Coordinator 01/05/24 Loss Prevention Detective Relationship Specialty Start Date End Date Marilee Thakur MD [address] [place] [address] PCP - General 09/04/17 Isi Goodman MD [address] [address] Consulting Physician Cardiology 01/20/24 Loss Prevention Detective Relationship Specialty Start Date End Date Marilee Thakur MD [address] [place] [address] PCP - General Internal Medicine 12/13/15 Bradley Flores, RODRÍGUEZ [address] [place] [address] Primary Care Metal Flow Coordinator 01/27/24 Loss Prevention Detective Relationship Specialty Start Date End Date Marilee Thakur MD [address] [place] [address] PCP - General Internal Medicine 12/13/15 Bradley Flores, RODRÍGUEZ [address] [facility] [place] [address] Primary Care Metal Flow Coordinator 01/27/24 Loss Prevention Detective Relationship Specialty Start Date End Date Marilee Thakur MD [address] [facility] [place] [address] PCP - General Internal Medicine 12/13/15 Bradley Flores, RN [address] [facility] [place] [address] Primary Care Metal Flow Coordinator 01/27/24 Loss Prevention Detective Relationship Specialty Start Date End Date Marilee Thakur MD [address] [facility] [place] [address] PCP - General Internal Medicine 12/13/15 Bradley Flores RN [address] [facility] [place] [address] Primary Care Metal Flow Coordinator 01/27/24 Loss Prevention Detective Relationship Specialty Start Date End Date Marilee Thakur MD [address] [facility] [place] [address] PCP - General Internal Medicine 12/13/15 Bradley Flores, RODRÍGUEZ [address] [facility] [place] [address] Primary Care Metal Flow Coordinator 01/27/24 Loss Prevention Detective Relationship Specialty Start Date End Date Marilee Thakur MD [address] [facility] [place] [address] PCP - General Internal Medicine 12/13/15 Bradley Flores, RODRÍGUEZ [address] [facility] [place] [address] Primary Care Metal Flow Coordinator 01/27/24 Aaliyah Sanchez PA-C [address] [place] [address] [facility] Family [facility] 02/15/24 Mika Kaplan APRN.BULB INSPECTOR [address] [place], [place] 750[address] [facility] Internal Medicine 02/15/24 Maria Luisa Hayden PA-C [address] [place] [address] [facility] 02/15/24 Loss Prevention Detective Relationship Specialty Start Date End Date Marilee Thakur MD [address] [place], [place] 286701 PCP - General Internal Medicine 12/13/15 Aaliyah Sanchez PA-C [address] [place] [address] [facility] 02/15/24 Mika Kaplan APRN.BULB INSPECTOR [address] [place] [address] [facility] Internal Medicine 02/15/24 Maria Luisa Hayden PA-C [address] [place] [address] [facility] 02/15/24 Bradley Flores, RODRÍGUEZ [address] [place] [address] Primary Care Metal Flow Coordinator 02/20/24 Loss Prevention Detective Relationship Specialty Start Date End Date Marilee Thakur MD [address] [place], [place] 252271 PCP - General Internal Medicine 12/13/15 Aaliyah Sanchez PA-C [address] [place] [address] [facility] 02/15/24 Mika Kaplan APRN.BULB INSPECTOR [address] [place] [address] [facility] Internal [facility] 02/15/24 Maria Luisa Hayden PA-C [address] [place] [address] [facility] 02/15/24 Bradley Flores RN [address] [place] [address] Primary Care Metal Flow Coordinator 02/20/24 Loss Prevention Detective Relationship Specialty Start Date End Date Marilee Thakur MD [address] [place] [address] PCP - General Internal Medicine 12/13/15 Aaliyah Sanchez PA-C [address] [place] [address] Furn[facility] Family [facility] 02/15/24 Mika Kaplan APRN.BULB INSPECTOR [address] [place] [address] [facility] Internal [facility] 02/15/24 Maria Luisa Hayden PA-C [address] [place] [address] [facility] 02/15/24 Bradley Flores RN [address] [place], [place] [address]31 Primary Care Metal Flow Coordinator 02/20/24 Loss Prevention Detective Relationship Specialty Start Date End Date Marilee Thakur MD [address] [place] [address] PCP - General Internal Medicine 12/13/15 Aaliyah Sanchez PA-C [address] [place], [place] [phone] [facility] 02/15/24 Mika Kaplan APRN.BULB INSPECTOR [address] [place] [address] [facility] 02/15/24 Maria Luisa Hayden PA-C [address] [place] [address] [facility] 02/15/24 Bradley Flores RN [address] [place] [address] Primary Care Metal Flow Coordinator 02/27/24 02/27/24 Loss Prevention Detective Relationship Specialty Start Date End Date Marilee Thakur MD [address] [place] [address] PCP - General Internal Medicine 12/13/15 Aaliyah Sanchez PA-C [address] [place] [address] [facility] 02/15/24 Mika Kaplan APRN.BULB INSPECTOR [address] [place] [address] [facility] 02/15/24 Maria Luisa Hayden PA-C [address] [place] [address] [facility] 02/15/24 Loss Prevention Detective Relationship Specialty Start Date End Date Marilee Thakur MD [address] [place] [address] PCP - General Internal Medicine 12/13/15 Aaliyah Sanchez PA-C [address] [place] [address] [facility] 02/15/24 Mika Kaplan APRN.BULB INSPECTOR [address] [place] [address] [facility] 02/15/24 Maria Luisa Hayden PA-C [address] [place] [address] [facility] 02/15/24 Loss Prevention Detective Relationship Specialty Start Date End Date Marilee Thakur MD [address] [place] [address] PCP - General Internal Medicine 12/13/15 Aaliyah Sanchez PA-C [address] [place] [address] [facility] 02/15/24 Mika Kaplan APRN.BULB INSPECTOR [address] [place] [address] [facility] 02/15/24 Maria Luisa Hayden PA-C [address] [place] [address] [facility] 02/15/24 Loss Prevention Detective Relationship Specialty Start Date End Date Marilee Thakur MD [address] [place] [address] PCP - General Internal Medicine 12/13/15 Aaliyah Sanchez PA-C [address] [place] [address] [facility] Family [facility] 02/15/24 Mika Kaplan APRN.BULB INSPECTOR [address] [place] [address] [facility] 02/15/24 Maria Luisa Hayden PA-C [address] [place] [address] [facility] 02/15/[facility] Loss Prevention Detective Relationship Specialty Start Date End Date Marilee Thakur MD [address] [place] [address] PCP - General Internal Medicine 12/13/15 Aaliyah Sanchez PA-C [address] [place] [address] [facility] 02/15/24 Mika Kaplan, MOISES.BULB INSPECTOR [address] [place] [address] [facility] 02/15/24 Maria Luisa Hayden PA-C [address] [facility] [place] [address] [facility] 02/15/24 Loss Prevention Detective Relationship Specialty Start Date End Date Marilee Thakur MD [address] [place] [address] PCP - General Internal Medicine 12/13/15 Aaliyah Sanchez PA-C [address] [place] [address] [facility] 02/15/24 Mika Kaplan APRN.BULB INSPECTOR [address] [place] [address] [facility] 02/15/24 Maria Luisa Hayden PA-C [address] [place] [address] [facility] 02/15/24 Loss Prevention Detective Relationship Specialty Start Date End Date Marilee Thakur MD [address] [place] [address] PCP - General Internal Medicine 12/13/15 Aaliyah Sanchez PA-C [address] [place] [address] [facility] 02/15/24 Mika Kaplan APRN.BULB INSPECTOR [address] [place] [address] [facility] 02/15/24 Maria Luisa Hayden PA-C [address] [place] [address] Furn[facility] Family [facility] 02/15/24 Loss Prevention Detective Relationship Specialty Start Date End Date Marilee Thakur MD [address] [place] [address] PCP - General Internal Medicine 12/13/15 Aaliyah Sanchez PA-C [address] [place] [address] [facility] 02/15/24 Mika Kaplan APRN.BULB INSPECTOR [address] [place] [address] [facility] 02/15/24 Maria Luisa Hayden PA-C [address] [place] [address] [facility] 02/15/24 Loss Prevention Detective Relationship Specialty Start Date End Date Marilee Thakur MD [address] [place] [address] PCP - General Internal Medicine 12/13/15 Aaliyah Sanchez PA-C [address] [place] [id number] [phone] [facility] 02/15/24 Mika Kaplan APRN.BULB INSPECTOR [address] [place] [address] [facility] 02/15/24 Maria Luisa Hayden PA-C [address] [place] [address] [facility] 02/15/24 Loss Prevention Detective Relationship Specialty Start Date End Date Marilee Thakur MD [address] [place] [address] PCP - General Internal Medicine 12/13/15 Aaliyah Sanchez PA-C [address] [place] [address] [facility] 02/15/24 Mika Kaplan APRN.BULB INSPECTOR [address] [place] [address] [facility] 02/15/24 Maria Luisa Hayden PA-C [address] [place] [address] [facility] 02/15/24 Loss Prevention Detective Relationship Specialty Start Date End Date Marilee Thakur MD [address] [place] [address] PCP - General 09/04/17 Isi Goodman MD [address] [address] Consulting Physician Cardiology 01/20/24 Loss Prevention Detective Relationship Specialty Start Date End Date Marilee Thakur MD [address] [place] [address] PCP - General Internal Medicine 12/13/15 Aaliyah Sanchez PA-C [address] [place] [address] [facility] 02/15/24 Mika Kaplan APRN.CNP [address] [place] [address] [facility] 02/15/24 Maria Luisa Hayden PA-C [address] [place] [address] [facility] 02/15/24 Loss Prevention Detective Relationship Specialty Start Date End Date Marilee Thakur MD [address] [place] [address] PCP - General Internal Medicine 12/13/15 Aaliyah Sanchez PA-C [address] [place] [address] [facility] 02/15/24 Mika Kaplan APRN.BULB INSPECTOR [address] [place] [address] [facility] 02/15/24 Maria Luisa Hayden PA-C [address] [place] [address] [facility] 02/15/24 Loss Prevention Detective Relationship Specialty Start Date End Date Marilee Thakur MD [address] [place] [address] PCP - General 09/04/17 Isi Goodman MD [address] [address] Consulting Physician Cardiology 01/20/24 Loss Prevention Detective Relationship Specialty Start Date End Date Marilee Thakur MD [address] [place] [address] PCP - General Internal Medicine 12/13/15 Aaliyah Sanchez PA-C [address] [place] [address] Furnace [facility] Family [facility] 02/15/24 Mika Kaplan APRN.BULB INSPECTOR [address] [place] [address] [facility] 02/15/24 Maria Luisa Hayden PA-C [address] [place], [place] [address] [facility] 02/15/24 Loss Prevention Detective Relationship Specialty Start Date End Date Marilee Thakur MD [address] [place], [place] [address] PCP - General Internal Medicine 12/13/15 Aaliyah Sanchez PA-C [address] [place] [address] [facility] 02/15/24 Mika Kaplan APRN.BULB INSPECTOR [address] [place], [place] 710[address] [facility] 02/15/24 Maria Luisa Hayden PA-C [address] [place], [place] [address] [facility] 02/15/24 Loss Prevention Detective Relationship Specialty Start Date End Date Marilee Thakur MD [address] [place], [place] [address]121 PCP - General 09/04/17 Isi Goodman MD [address] [facility] [address] [place] [address] Consulting Physician Cardiology 01/20/24 Loss Prevention Detective Relationship Specialty Start Date End Date Mairlee Thakur MD [address] [place] [address] PCP - General Internal Medicine 12/13/15 Mika Kaplan APRN.BULB INSPECTOR [address] [facility], [place] [address] [facility] Internal Medicine 02/15/24 Loss Prevention Detective Relationship Specialty Start Date End Date Marilee Thakur MD [address] [facility] [place], [place] [address] PCP - General Internal Medicine 12/13/15 Aaliyah Sanchez PA-C [address] [place] [address] [facility] 02/15/24 05/30/24 Mika Kaplan APRN.BULB INSPECTOR [address] [place] [address] [facility] Internal [facility] 02/15/24 Maria Luisa Hayden PA-C [address] [place] [address] [facility] 02/15/24 05/30/24 Loss Prevention Detective Relationship Specialty Start Date End Date Marilee Thakur MD [address] [place] [address] PCP - General Internal Medicine 12/13/15 Mika Kaplan APRN.BULB INSPECTOR [address] [place] [address] [facility] Internal [facility] 02/15/24 Team Status: Active Member Role Status Dates Dr. Tia Morrison MD Primary Care Provider Active Team Status: Inactive Member Role Status Dates Dr. Marilee Thakur MD Primary Care Provider Active Start: April 28, 2024 End: May 02, 2024 Dr. Manuel Anderson DO Emergency Provider Active Start: April 28, 2024 End: May 02, 2024 Dr. Cinthia Torres MD Admit Provider Active St art: April 28, 2024 End: May 02, 2024 Dr. Cinthia Torres MD Other Provider Active St art: April 28, 2024 End: May 02, 2024 Dr. Marbin Lizama DO Attending Provider Active Start: April 28, 2024 End: May 02, 2024 Team Status: Active Member Role Status Dates Dr. Marilee Thakur MD Primary Care Provider Active Start: April 29, 2024 Dr. Manuel Anderson DO Emergency Provider Active Start: April 29, 2024 Dr. Cinthia Torres MD Admit Provider Active St art: April 29, 2024 Dr. Cinthia Torres MD Attending Provider Active Start: April 29, 2024 Dr. Cinthia Torres MD Other Provider Active St art: April 29, 2024 Team Status: Active Member Role Status Dates Dr. Marilee Thakur MD Primary Care Provider Active Start: April 29, 2024 Dr. Manuel Anderson DO Emergency Provider Active Start: April 29, 2024 Dr. Cinthia Torres MD Admit Provider Active St art: April 29, 2024 Dr. Cinthia Torres MD Other Provider Active St art: April 29, 2024 Dr. Marbin Lizama DO Attending Provider Active Start: April 29, 2024 Dr. Marbin Lizama DO Other Provider Active Start: April 29, 2024 Team Status: Active Member Role Status Dates Dr. Marilee Thakur MD Primary Care Provider Active Start: April 30, 2024 Dr. Manuel Anderson DO Emergency Provider Active Start: April 30, 2024 Dr. Cinthia Torres MD Admit Provider Active St art: April 30, 2024 Dr. Cinthia Torres MD Other Provider Active St art: April 30, 2024 Dr. Marbin Lizama DO Attending Provider Active Start: April 30, 2024 Dr. Marbin Lizama DO Other Provider Active Start: April 30, 2024 Team Status: Active Member Role Status Dates Dr. Marilee Thakur MD Primary Care Provider Active Start: May 01, 2024 Dr. Manuel Anderson DO Emergency Provider Active Start: May 01, 2024 Dr. Cinthia Torres MD Admit Provider Active St art: May 01, 2024 Dr. Cinthia Torres MD Other Provider Active St art: May 01, 2024 Dr. Marbin Lizama DO Attending Provider Active Start: May 01, 2024 Dr. Marbin Lizama DO Other Provider Active Start: May 01, 2024 Team Status: Active Member Role Status Dates Dr. Marilee Thakur MD Primary Care Provider Active Start: May 02, 2024 Dr. Manuel Anderson DO Emergency Provider Active Start: May 02, 2024 Dr. Cinthia Torres MD Admit Provider Active St art: May 02, 2024 Dr. Cinthia Torres MD Other Provider Active St art: May 02, 2024 Dr. Marbin Lizama DO Attending Provider Active Start: May 02, 2024 Dr. Marbin Lizama DO Other Provider Active Start: May 02, 2024 Team Status: Active Member Role Status Dates Dr. Marilee Thakur MD Primary Care Provider Active Start: June 18, 2024 Dr. Tia OLIVO MD Attending Provider Active Start: June 18, 2024 Team Status: Active Member Role Status Dates Dr. Marilee Thakur MD Primary Care Provider Active Start: June 21, 2024 Dr. Tia OLIVO MD Attending Provider Active Start: June 21, 2024 Dr. Tia OLIVO MD Referring Provider Active Start: June 21, 2024 Team Status: Active Member Role Status Dates Dr. Marilee Thakur MD Primary Care Provider Active Start: 2024 Dr. Tia OLIOV MD Attending Provider Active Start: 2024 Team Status: Active Member Role Status Dates Dr. Marilee Thakur MD Primary Care Provider Active Start: July 05, 2024 Dr. Tia OLIVO MD Attending Provider Active Start: July 05, 2024 Team Status: Active Member Role Status Dates Dr. Marilee Thakur MD Primary Care Provider Active Start: July 12, 2024 Dr. Tia OLIVO MD Attending Provider Active Start: July 12, 2024 Team Status: Active Member Role Status Dates Dr. Marilee Thakur MD Primary Care Provider Active Start: July 26, 2024 Dr. Tia OLIVO MD Attending Provider Active Start: July 26, 2024 Team Status: Active Member Role Status Dates Dr. Marilee Thakur MD Primary Care Provider Active Start: August 03, 2024 Dr. Tia OLIVO MD Attending Provider Active Start: August 03, 2024 Team Status: Inactive Member Role Status Dates Dr. Tia Morrison MD Primary Care Provider Active Start: August 09, 2024 End: August 09, 2024 Dr. Tia OLIVO MD Attending Provider Active Start: August 09, 2024 End: August 09, 2024 Dr. Tia OLIVO MD Referring Provider Active Start: August 09, 2024 End: August 09, 2024 Team Status: Active Member Role Status Dates Dr. Tia Morrison MD Primary Care Provider Active Start: August 16, 2024 Dr. Tia OLIVO MD Attending Provider Active Start: August 16, 2024 Loss Prevention Detective Relationship Specialty Start Date End Date Marilee Thakur MD [address] [facility] [place] [address] PCP - General Internal Medicine 12/13/15 Mika Kaplan APRN.BULB INSPECTOR [address] [place] [address] Furnace Hand Internal Medicine 02/15/24 Loss Prevention Detective Relationship Specialty Start Date End Date Marilee Thakur MD [address] [facility] [place] [address] PCP - General Internal Medicine 12/13/15 Mika Kaplan APRN.BULB INSPECTOR [address] [facility] [place] [address] Furnace Hand Internal Medicine 02/15/24 Loss Prevention Detective Relationship Specialty Start Date End Date Marilee Thakur MD [address] [facility] [place] [address] PCP - General Internal Medicine 12/13/15 Mika Kaplan APRN.BULB INSPECTOR [address] [place] [address] Furnace Hand Internal Medicine 02/15/24 Loss Prevention Detective Relationship Specialty Start Date End Date Marilee Thakur MD [address] [place] [address] PCP - General Internal Medicine 12/13/15 Mika Kaplan APRN.BULB INSPECTOR [address] [place] [address] Furnace Hand Internal Medicine 02/15/24 Loss Prevention Detective Relationship Specialty Start Date End Date Marilee Thakur MD [address] [place] [address] PCP - General Internal Medicine 12/13/15 Mika Kaplan APRN.BULB INSPECTOR [address] [place] [address] Furnace Hand Internal Medicine 02/15/24 Loss Prevention Detective Relationship Specialty Start Date End Date Marilee Thakur MD [address] [place] [address] PCP - General Internal Medicine 12/13/15 Mika Kaplan APRN.BULB INSPECTOR [address] [place] [address] Furnace Hand Internal Medicine 02/15/24 Goals (unrecognized section and [...] BE BASED ON THE PRIMARY CLINICAL RECORDS. [employer] [facility]. provides no warranty or guarantee of the accuracy or completeness of information in this document.
--- NOTE | 2024-10-14 22:15 | EX.ED.DYSGE1 ---
HPI History of Present Illness Chief Complaint: Health Seeking Behavior Narrative Narrative: Patient is a 44-year-old female with past medical*CAD, DACIA, Prader-Willi syndrome, chronic kidney disease, thyroidism, heart failure with preserved ejection fraction, hypothyroidism, COPD chronically on 3 L nasal cannula who presented to the emergency department the chief complaint of altered mental status. Per staff at care home she has these episodes that she chooses not to respond and notes that this is seeking behavior. Upon my arrival into the room the staff from the care home and the family members at bedside state that she is back to her baseline and would like to take her home at this point in time. They state that otherwise she has been feeling well and have no specific other complaints at this point time. Once again they note this is not atypical for her behavior. [facility] Medical History CAD (coronary artery disease) DACIA treated with BiPAP Prader-Willi syndrome Kidney disease Hypothyroidism Non-smoker Asthma Chest pain DVT (deep venous thrombosis) (HFpEF) heart failure with preserved ejection fraction HTN (hypertension) DACIA treated with BiPAP Morbid obesity with body mass index (BMI) greater than or equal to 50 Menorrhagia with regular cycle Cystocele with incomplete uterovaginal prolapse Prader-Willi syndrome Enlarged RV (right ventricle) COPD (chronic obstructive pulmonary disease) Hypothyroidism Prader-Willi syndrome Morbid obesity with BMI of 40.0-44.9, adult Home Medications ?Medication ?Instructions ?Recorded ?Last Taken ?Type ammonium lactate 12 % topical cream 1 applicatio topical DAILY skin 10/26/13 12/26/23 History nystatin 100,000 unit/gram topical 1 applic topical BID rash 06/01/16 12/26/23 History powder clotrimazole 1 % topical cream 1 applic topical BID skin 04/08/17 12/26/23 History fluticasone propionate 50 1 spray intranasal DAILY breathing 04/08/17 12/26/23 History mcg/actuation nasal spray,suspension levothyroxine 100 mcg tablet 100 mcg PO DAILY thyroid 12/26/23 12/26/23 History mometasone-formoterol HFA 100 2 inh inhalation BID breathing 12/26/23 12/26/23 History mcg-5 mcg/actuation aerosol inhaler (Dulera) multivitamin-ferrous 1 tab PO DAILY vitamin 12/26/23 12/26/23 History fumarate-folic acid 18 mg-400 mcg tablet (A Thru Z Advanced Formula) carvedilol 3.125 mg tablet 3.125 mg PO BID heart health #60 01/02/24 Unknown Rx tabs omega-3 fatty acids 1,000 mg 1,000 mg PO DAILY supplement 02/17/24 Unknown History capsule aspirin 81 mg chewable tablet 1 tab PO DAILY 04/28/24 Unknown History calcium carbonate (Oyster Shell 500 mg PO BID 04/28/24 Unknown History Calcium) epinephrine 0.3 mg/0.3 mL 0.3 mg IM DAILY PRN anaphylaxis 04/28/24 Unknown History injection, auto-injector fluticasone furoate 100 1 inh inhalation DAILY 04/28/24 Unknown History mcg-vilanterol 25 mcg/dose inhalation powder (Breo Ellipta) multivitamin-ferrous 1 tab PO DAILY 04/28/24 Unknown History fumarate-folic acid 18 mg-400 mcg tablet (Certavite-Antioxidant) torsemide 10 mg tablet 20 mg PO BID 04/28/24 Unknown History norethindrone (contraceptive) 0.35 0.35 mg PO QDAY control #84 05/24/24 Unknown Rx mg tablet (Arianna) tabs Allergy/AdvReac Type Severity Reaction Status Date / Time insect venom (insect bites) Allergy Intermediate Itching Verified 10/14/24 20:51 phenytoin sodium (From Allergy Unknown Verified 10/14/24 20:51 Dilantin) phenytoin sodium extended Allergy Unknown Verified 10/14/24 20:51 (From Dilantin) venom-honey bee (bee venom Allergy Unknown Verified 10/14/24 20:51 (honey bee)) Family History Grandmother Diabetes Heart disease Hypertension Mother Diabetes Grandfather Hypertension Father No problems noted. Surgical History History of coronary artery stent placement History of tonsillectomy and adenoidectomy Social History household members: none housing: other details: retirement. Smoking Status: Never smoker alcohol intake: never substance use type: does not use caffeine: Yes frequency: daily seatbelt use: always do you feel safe at home: Yes additional social history: Louis Gimenez ROS ROS ED ROS Narrative Constitutional: Denies any fevers, chills, headaches, lightness, dizziness Eyes: Denies change of his double vision blurry vision Cardiovascular: Denies chest pain Respiratory: Denies shortness of breath Abdomen: Denies nausea vomit diarrhea : Denies any urinary Neurological: Denies any numbness, wheeze, tingling Musculoskeletal: Denies back pain Skin: Denies any rashes or lesion EXAM Physical Exam Narrative Exam Narrative: General: Patient was lying in bed rest comfortably did not appear to be in acute distress Head: Atraumatic, normocephalic Eyes: PERRL bilaterally, EOMI blood, no conjunctival injection noted Neck: Soft, supple, trachea midline Cardiovascular: Patient bradycardic with a regular rhythm no murmurs gallops rubs are noted Respiratory: Clear to auscultation bilaterally Abdomen: Soft, nondistended, nontender to palpation Extremities: Patient moving all extremities on exam no pedal edema on exam Neurological: Patient following commands knew that she was at the hospital and is at her baseline according to family members at bedside as well as her care home staff Skin: Warm, dry, tact no rashes or lesions noted Const Vital Signs: 10/14/24 20:47 10/14/24 20:51 Temperature 98.1 F Temperature Source Oral Pulse Rate 58 L Respiratory Rate 16 Respiratory Pattern Normal Blood Pressure 135/72 H Blood Pressure Mean 93 Pulse Ox 100 MDM MDM MDM Narrative Medical decision making narrative: Patient is a 44-year-old female who presented to the emergency department the chief complaint of altered mental status and not responding to staff. On the differential diagnosis includes but not limited to seeking behavior, electrolyte abnormality, intracranial hemorrhage although feel these are less likely as she has been at her baseline prior to this episode and this is not uncommon for her to do according to family and care home staff at bedside. They would like to take her home and would like to forego any testing. They are advised to return with worsening symptoms or any concerns. They are agreeable this plan all course concerns answered she was discharged home in stable condition. Discharge Plan Triage Chief Complaint: Health Seeking Behavior ED Provider: Doc Segovia Dx/Rx/DC Orders Clinical Impression: Encounter for medical screening examination, History of chronic CHF, COPD (chronic obstructive pulmonary disease), Chronic hypoxemic respiratory failure Prescriptions: No Action fluticasone propionate 50 mcg/actuation spray,suspension 1 spray INTRANASAL DAILY clotrimazole 1 % cream 1 applic TOPICAL BID ammonium lactate 140 GM cream 1 applicatio TOPICAL DAILY Patient Comments: skin health nystatin 1 APPLIC bottle 1 applic TOPICAL BID omega-3 fatty acids 1,000 mg capsule 1,000 mg PO DAILY aspirin 81 mg tablet,chewable 1 tab PO DAILY fluticasone furoate-vilanterol [Breo Ellipta] 100-25 mcg/dose blister with device 1 inh inhalation DAILY Certavite-Antioxidant 18-400 mg-mcg tablet 1 tab PO DAILY torsemide 10 mg tablet 20 mg PO BID Patient Comments: [NO ORIGINAL SIG] calcium carbonate [Oyster Shell Calcium] 500 mg calcium (1,250 mg) tablet 500 mg PO BID epinephrine 0.3 mg/0.3 mL auto-injector 0.3 mg IM DAILY PRN (Reason: anaphylaxis) A Thru Z Advanced Formula 18-400 mg-mcg tablet 1 tab PO DAILY Dulera 100-5 mcg/actuation HFA aerosol inhaler 2 inh inhalation BID levothyroxine 100 mcg tablet 100 mcg PO DAILY carvedilol 3.125 mg Tablet 3.125 mg PO BID Qty: 60 0RF norethindrone (contraceptive) [Arianna] 0.35 mg tablet 0.35 mg PO QDAY Qty: 84 4RF Primary Care Provider: Tia Ruiz Referrals: Tia Ruiz MD [Primary Care Provider] - Activity Restrictions/Additional Instructions: Follow-up your doctor in outpatient setting. Return with worsening symptoms or other concerns Print Language: Turkmen Disposition Disposition: Home, Self Care
[2024-10-14 22:36] VITALS: BP 122/62; PULSE 61; RESP 16; TEMP 36.9; O2SAT 99
== END 2024-10-14 22:38 | disposition home or self-care (01) ==
PROVIDERS: Emergency Provider Emergency Medicine; PCP Internal Medicine; Visit Provider Emergency Medicine
DX: R41.82 Altered mental status, unspecified (principal); I13.0 Hypertensive heart and chronic kidney disease with heart failure and stage 1 through stage 4 chronic kidney disease, or unspecified chronic kidney disease; I50.32 Chronic diastolic (congestive) heart failure; J44.9 Chronic obstructive pulmonary disease, unspecified; N18.9 Chronic kidney disease, unspecified; I25.10 Atherosclerotic heart disease of native coronary artery without angina pectoris; G47.33 Obstructive sleep apnea (adult) (pediatric); Z86.718 Personal history of other venous thrombosis and embolism; Z95.5 Presence of coronary angioplasty implant and graft
CPT/HCPCS: 99284